=== PATIENT | male | born 1940 | race Caucasian/White ===

== ENCOUNTER 2018-06-17 03:07 | Emergency (ER) | payer OTHER, SELFPAY ==
[2018-06-17] MEDS ORDERED: ONDANSETRON 4 MG/2 ML VIAL ONE (03:54)
[2018-06-17] MEDS ORDERED: MORPHINE 4 MG/ML SYR ONE (03:54)
[2018-06-17] MEDS ORDERED: NA CHLORIDE 0.9% 1,000 ML ONE (03:54)
[2018-06-17 03:58] LABS: Absolute Monocytes 0.9 K/uL (0.1-1.3); Absolute Neutrophil 12.6 K/uL (1.8-8.0); Basophils % 0.5 % (0-1.3); Eosinophils % 0.6 % (0-4.4); Lymphocytes % 6.8 % (15.3-44.8); MPV 8.1 fL (7.6-11.3); RBC Red Blood Cell Count 4.36 M/uL (4.33-5.43)
[2018-06-17 04:14] LABS: Albumin 2.2 g/dL (3.4-5.0); Bilirubin Direct 0.3 mg/dL (0-0.2); Bilirubin Total 0.5 mg/dL (0.2-1.0); Potassium 4.1 mmol/L (3.5-5.1); Protein, Total 7.3 g/dL (6.4-8.2)
[2018-06-17 04:53] LABS: Blood Morphology Comment NOT SEEN (NOT SEEN); Platelet Estimate ADEQ
--- NOTE | 2018-06-17 05:31 | ER ---
Nurse's Notes [facility] Name: Rio Strauss Age: 77 yrs Sex: Male : 1940 Arrival Date: 06/17/2018 Time: 03:10 Bed 17 Private MD: Diagnosis: Retention of urine, unspecified Presentation: 06/17 03:12 Presenting complaint: Patient states: I have a pain in my right side that radiate to my jb4 left. I think it is my kidneys. 03:12 Transition of care: patient was not received from another setting of care. Onset of jb4 symptoms was June 16, 2018. Risk Assessment: Do you want to hurt yourself or someone else? Patient reports no desire to harm self or others. Initial Sepsis Screen: Does the patient meet any 2 criteria? No. Patient's initial sepsis screen is negative. Initial Sepsis Screen: Does the patient have a suspected source of infection? No. Patient's initial sepsis screen is negative. Care prior to arrival: None. 03:12 Method Of Arrival: Ambulatory jb4 03:12 Acuity: SHI 3 jb4 Triage Assessment: 03:12 General: Appears in no apparent distress. uncomfortable, Behavior is calm, cooperative, jb4 appropriate for age. Pain: Complains of pain in right low back Pain radiates to left low back Pain currently is 7 out of 10 on a pain scale. Quality of pain is described as aching, stabbing, Pain began 1 day ago. EENT: No signs and/or symptoms were reported regarding the EENT system. Neuro: Level of Consciousness is awake, alert, obeys commands, Oriented to person, place, time, situation. Cardiovascular: Patient's skin is warm and dry. Respiratory: Reports cough that is non-productive, Pt diagnosed with the flu prior to today's visit. Airway is patent Respiratory effort is even, unlabored, Respiratory pattern is regular, symmetrical. GI: No signs and/or symptoms were reported involving the gastrointestinal system. : No signs and/or symptoms were reported regarding the genitourinary system. Derm: Skin is intact, Skin is pink, warm \T\ dry. Musculoskeletal: Circulation, motion, and sensation intact. Historical: - Allergies: 03:12 No Known Allergies; jb4 - Home Meds: 03:12 Augmentin Oral [Active]; atorvastatin oral oral [Active]; Lisinopril Oral [Active]; jb4 - PMHx: 03:12 Hyperlipidemia; Hypertension; jb4 - PSHx: 03:12 parathyroidectomy; jb4 - Immunization history:: Adult Immunizations not up to date. - Social history:: Smoking status: Patient/guardian denies using tobacco, Patient/guardian denies using alcohol, Patient/guardian denies using street drugs, The patient lives with family. - Ebola Screening: : No symptoms or risks identified at this time. - Family history:: not pertinent. Screenin:12 Abuse screen: Denies threats or abuse. Nutritional screening: No deficits noted. jb4 Tuberculosis screening: No symptoms or risk factors identified. Fall Risk None identified. Assessment: 03:12 General: see triage assessment.. jb4 04:16 Reassessment: Patient appears in no apparent distress at this time. Patient and/or jb4 family updated on plan of care and expected duration. Pain level reassessed. Patient is alert, oriented x 3, equal unlabored respirations, skin warm/dry/pink. Pt back from Ct. 04:22 Cardiovascular: Patient's skin is warm and dry. Respiratory: Breath sounds with rhonchi jb4 bilaterally. 05:00 Reassessment: Patient appears in no apparent distress at this time. Patient and/or jb4 family updated on plan of care and expected duration. Pain level reassessed. Patient is alert, oriented x 3, equal unlabored respirations, skin warm/dry/pink. 06:09 Reassessment: Patient appears in no apparent distress at this time. Patient and/or jb4 family updated on plan of care and expected duration. Pain level reassessed. Patient is alert, oriented x 3, equal unlabored respirations, skin warm/dry/pink. Discussed D/c, F/u with pt, denies questions or concerns. Verified understanding of education through teach back. Vital Signs: 03:12 BP 150 / 71; Pulse 65; Resp 18; Temp 97.6; Pulse Ox 98% on R/A; Weight 106.59 kg (R); jb4 Height 6 ft. 0 in. (182.88 cm) (R); Pain 7/10; 04:22 BP 124 / 72; Pulse 65; Resp 18; Pulse Ox 93% on R/A; jb4 05:00 BP 134 / 67; Pulse 73; Resp 18; Pulse Ox 98% on R/A; jb4 05:45 BP 149 / 68; Pulse 75; Resp 18; Pulse Ox 96% on R/A; jb4 03:12 Body Mass Index 31.87 (106.59 kg, 182.88 cm) jb4 ED Course: 03:10 Patient arrived in ED. ag3 03:11 Arely Shepherd MD is Attending Physician. ma2 03:12 Arm band placed on left wrist. jb4 03:12 Patient has correct armband on for positive identification. Bed in low position. Call 4 light in reach. Side rails up X 1. Pulse ox on. NIBP on. 03:22 Magdaleno Aguilera, RN is Primary Nurse. jb4 03:24 Triage completed. jb4 03:44 Inserted saline lock: 22 gauge in right antecubital area, using aseptic technique. gm Blood collected. 04:19 CT completed. Patient tolerated procedure well. Patient moved to CT via wheelchair. Patient moved back from CT. 04:20 Stone Protocol In Process Unspecified. EDPA 06:11 No provider procedures requiring assistance completed. jb4 06:11 Pt left before IV could be Dc'd. jb4 Administered Medications: 03:50 Drug: NS 0.9% 1000 ml Route: IV; Rate: 1 bolus; Site: right antecubital; jb4 05:30 Follow up: Response: No adverse reaction; IV Status: Completed infusion jb4 03:50 Drug: Zofran 4 mg {Note: Given IVP per physicians orders..} Route: IM; Site: Other; jb4 04:05 Follow up: Response: No adverse reaction jb4 03:52 Drug: morphine 4 mg Route: IVP; Site: right antecubital; jb4 04:05 Follow up: Response: No adverse reaction; Pain is decreased jb Outcome: 05:31 Discharge ordered by . ma2 06:11 Discharged to home ambulatory. jb4 06:11 Condition: stable 06:11 Discharge instructions given to patient, Instructed on discharge instructions, follow up and referral plans. medication usage, Demonstrated understanding of instructions, follow-up care, medications, Prescriptions given X 2. 06:18 Patient left the ED. jb4 Signatures: Dispatcher [employer] [facility] Antoni Mckinney Magdaleno Aguilera, RN RN jb Arely Shepherd MD MD ma2 Quin Callaway ag3 Nery Sen gm Corrections: (The following items were deleted from the chart) 04:22 04:16 Reassessment: Patient appears in no apparent distress at this time. Patient jb4 and/or family updated on plan of care and expected duration. Pain level reassessed. Patient is alert, oriented x 3, equal unlabored respirations, skin warm/dry/pink. Pt back from Ct jb4
--- NOTE | 2018-06-17 05:32 | EDPHYS ---
Physician Documentation [facility] Name: Rio Strauss Age: 77 yrs Sex: Male : 1940 Arrival Date: 06/17/2018 Time: 03:10 Bed 17 Private MD: ED Physician Arely Shepherd HPI: 06/17 03:32 This 77 yrs old Male presents to ER via Ambulatory with complaints of Flank ma2 Pain. 03:32 The patient complains of pain in the right mid back. The pain does not radiate. Onset: ma2 The symptoms/episode began/occurred gradually, 2 day(s) ago. Associated signs and symptoms: Pertinent negatives: dizziness, urinary frequency, headache, nausea. Severity of pain: At its worst the pain was moderate in the emergency department the pain. The patient has experienced a previous episode. Historical: - Allergies: 03:12 No Known Allergies; jb4 - Home Meds: 03:12 Augmentin Oral [Active]; atorvastatin oral oral [Active]; Lisinopril Oral [Active]; jb4 - PMHx: 03:12 Hyperlipidemia; Hypertension; jb4 - PSHx: 03:12 parathyroidectomy; jb4 - Immunization history:: Adult Immunizations not up to date. - Social history:: Smoking status: Patient/guardian denies using tobacco, Patient/guardian denies using alcohol, Patient/guardian denies using street drugs, The patient lives with family. - Ebola Screening: : No symptoms or risks identified at this time. - Family history:: not pertinent. ROS: 03:32 Constitutional: Negative for fever, chills, and weight loss, Eyes: Negative for injury, ma2 pain, redness, and discharge. 03:32 Back: Positive for pain at rest, Negative for injury or acute deformity, radiated pain. 03:32 All other systems are negative. Exam: 03:32 Constitutional: This is a well developed, well nourished patient who is awake, alert, ma2 and in no acute distress. Chest/axilla: Normal chest wall appearance and motion. Nontender with no deformity. No lesions are appreciated. Cardiovascular: Regular rate and rhythm with a normal S1 and S2. No gallops, murmurs, or rubs. Normal PMI, no JVD. No pulse deficits. Respiratory: Lungs have equal breath sounds bilaterally, clear to auscultation and percussion. No rales, rhonchi or wheezes noted. No increased work of breathing, no retractions or nasal flaring. Abdomen/GI: Soft, non-tender, with normal bowel sounds. No distension or tympany. No guarding or rebound. No evidence of tenderness throughout. MS/ Extremity: Pulses equal, no cyanosis. Neurovascular intact. Full, normal range of motion. Neuro: Awake and alert, GCS 15, oriented to person, place, time, and situation. Cranial nerves II-XII grossly intact. Motor strength 5/5 in all extremities. Sensory grossly intact. Cerebellar exam normal. Normal gait. Vital Signs: 03:12 BP 150 / 71; Pulse 65; Resp 18; Temp 97.6; Pulse Ox 98% on R/A; Weight 106.59 kg (R); jb4 Height 6 ft. 0 in. (182.88 cm) (R); Pain 7/10; 04:22 BP 124 / 72; Pulse 65; Resp 18; Pulse Ox 93% on R/A; jb4 05:00 BP 134 / 67; Pulse 73; Resp 18; Pulse Ox 98% on R/A; jb4 05:45 BP 149 / 68; Pulse 75; Resp 18; Pulse Ox 96% on R/A; jb4 03:12 Body Mass Index 31.87 (106.59 kg, 182.88 cm) [facility] MDM: 03:12 Patient medically screened. [facility] 03:32 Differential diagnosis: nephrolithiasis, pyelonephritis, UTI, pancreatitis. [facility] 05:29 Data reviewed: vital signs, nurses notes. Counseling: I had a detailed discussion with [facility] the patient and/or guardian regarding: the historical points, exam findings, and any diagnostic results supporting the discharge/admit diagnosis, the presence of at least one elevated blood pressure reading (>120/80) during this emergency department visit, the need for outpatient follow up. Response to treatment: the patient's symptoms have resolved after treatment. 06/17 03:31 Order name: Basic Metabolic Panel; Complete Time: 05:18 [facility] 06/17 03:31 Order name: CBC with Diff; Complete Time: 05:18 [facility] 06/17 03:31 Order name: Creatinine for Radiology; Complete Time: 05:18 [facility] 06/17 03:31 Order name: Hepatic Function; Complete Time: 05:18 [facility] 06/17 03:31 Order name: Lipase; Complete Time: 05:18 [facility] 06/17 04:04 Order name: Manual Differential; Complete Time: 05:18 [facility] 06/17 03:31 Order name: IV Saline Lock; Complete Time: 03:54 [facility]2 06/17 03:31 Order name: Labs collected and sent; Complete Time: 03:54 [facility] 06/17 03:52 Order name: Stone Protocol [facility] 06/17 04:22 Order name: Urine Dipstick--Ancillary (enter results) [facility] 06/17 03:31 Order name: Urine Dipstick-Ancillary (obtain specimen); Complete Time: 04:09 [facility]2 06/17 05:28 Order name: Waters Leg Bag; Complete Time: 05:50 ma2 Administered Medications: 03:50 Drug: NS 0.9% 1000 ml Route: IV; Rate: 1 bolus; Site: right antecubital; [facility] 05:30 Follow up: Response: No adverse reaction; IV Status: Completed infusion [facility] 03:50 Drug: Zofran 4 mg {Note: Given IVP per physicians orders..} Route: IM; Site: Other; 4 04:05 Follow up: Response: No adverse reaction [facility] 03:52 Drug: morphine 4 mg Route: IVP; Site: right antecubital; 4 04:05 Follow up: Response: No adverse reaction; Pain is decreased 4 Disposition: 06/17/18 05:31 Discharged to Home. Impression: Retention of urine, unspecified. - Condition is Stable. - Discharge Instructions: Acute Urinary Retention, Male, Acute Urinary Retention, Male, [id number]. - Prescriptions for Flomax 0.4 mg Oral Capsule, Sust. Release 24 hr - take 1 capsule by ORAL route once daily 1/2 hour following the same meal each day; 30 capsule. Bactrim DS 800- 160 mg Oral Tablet - take 1 tablet by ORAL route every 12 hours for 10 days; 20 tablet. - Medication Reconciliation Form, Thank You Letter, Antibiotic Education, Prescription Opioid Use form. - Follow up: Private Physician; When: Tomorrow; Reason: Continuance of care. - Notes: follow up with urology in 1 week Signatures: Dispatcher [facility] Magdaleno Kaur RN RN jb4 Arely Shepherd MD MD ma2 Corrections: (The following items were deleted from the chart) 03:52 03:32 Abdomen Pelvis Wo Con+CT.RAD.BRZ ordered. EDMS EDMS 06:18 05:31 06/17/2018 05:31 Discharged to Home. Impression: Retention of urine, unspecified. jb4 Condition is Stable. Forms are Medication Reconciliation Form, Thank You Letter, Antibiotic Education, Prescription Opioid Use. Follow up: Private Physician; When: Tomorrow; Reason: Continuance of care. ma2
[2018-06-17 05:50] LABS: Urine Blood TRACE (NEG); Urine Glucose NEGATIVE (NEG); Urine Protein NEGATIVE (NEG); Urine Specific Gravity <1.005 (1.005-1.030)
[2018-06-17 06:25] VITALS: TEMP 97.6
[2018-06-17 06:29] VITALS: BP 149/68; O2SAT 96
--- NOTE | 2018-06-17 08:16 | RAD REPORT ---
EXAM DESCRIPTION: CT - Stone Protocol - 06/17/2018 6:54 am CLINICAL HISTORY: Flank pain. FLANK PAIN COMPARISON: CHEST PA AND LAT 2 VIEW dated 06/11/2012 TECHNIQUE: Axial images were obtained without oral or IV contrast. Lack of contrast limits solid org an and vascular assessment. The [id number] spans the entirety of the system partially obscuring uppermost abdomen and lung bases. Coronal reformatted images were obtained and reviewed. All CT scans are performed using dose optimization technique as appropriate and may include automated exposure control or mA/KV adjustment according to patient size. FINDINGS: Large area of airspace consolidation is present in the right lower lobe. Moderate airspace consolidation is present in the left lower lobe. Trace right pleural fluid. Imaged portions of the liver and spleen show no suspicious findings on non-contrast imaging. The panc reas and adrenal glands are normal. No pathologic lymphadenopathy in the abdomen or pelvis. The urinary bladder appears distended with areas of wall thickening and trabeculation. Bilateral hydr onephrosis, mild, is noted and relatively symmetric. No urinary tract stone seen. No bowel obstruction, free air, free fluid or abscess. Normal appendix noted.Aortic atherosclerosis. No significant bony abnormality. IMPRESSION: Large dense consolidations are present in both lung bases, greater on the right. Pneumon ia and airspace neoplasia are possible etiologies for these findings. Consider bronchoscopy follow-up assessment. No urinary tract stone is seen. Distension and trabeculation of the urinary bladder with mild bilater al hydronephrosis probably indicates chronic bladder outlet obstruction.
== END 2018-06-17 06:18 | disposition home or self-care (01) ==
LOC: ER 03:07
DX: N13.30 Unspecified hydronephrosis (principal); R33.9 Retention of urine, unspecified; E78.5 Hyperlipidemia, unspecified; I10 Essential (primary) hypertension; Z79.899 Other long term (current) drug therapy
CPT/HCPCS: 36415; 74176; 76377; 80048; 80076; 81003; 83690; 85025; 96361; 96372; 96374; 99284; J2405; J7030

== ENCOUNTER 2018-06-17 15:20 | Inpatient (IN) | payer OTHER, SELFPAY ==
[2018-06-17 17:02] VITALS: BMI 31.8
[2018-06-17] MEDS ORDERED: NA CHLORIDE 0.9% 500 ML ONE (17:41)
[2018-06-17] MEDS: ENOXAPARIN 30 MG/0.3 ML SQ SCH (18:00)
[2018-06-17] MEDS: LEVOFLOXACIN 750MG/D5W 150 ML IV SCH (18:06)
[2018-06-17 18:58] LABS: Urine Appearance CLOUDY; Urine Bilirubin NEGATIVE (NEG); Urine Blood 3+ (NEG); Urine Color RED; Urine Glucose NEGATIVE (NEG); Urine Protein 3+ (NEG); Urine Specific Gravity 1.015 (1.005-1.030)
[2018-06-17 19:00] LABS: Urine Microscopic Reflex ORDER UMIC
[2018-06-17 19:06] LABS: Urine Bacteria <20 /HPF (NONE SEEN); Urine Culture Reflex Order REFLEXED; Urine Mucus 1+ /HPF (NONE SEEN); Urine RBC >50 /HPF (NONE SEEN)
[2018-06-17] MEDS: ALBUTEROL 2.5 MG/3 ML NEB SOL NEB SCH (20:00)
[2018-06-18] MEDS: ALBUTEROL 2.5 MG/3 ML NEB SOL NEB SCH ×4 (07:32→20:35)
[2018-06-18] MEDS: LISINOPRIL 20 MG TAB PO SCH (09:00)
[2018-06-18] MEDS: ENOXAPARIN 30 MG/0.3 ML SQ SCH (09:00)
[2018-06-18] MEDS: TAMSULOSIN 0.4 MG SR CAP PO SCH (09:52)
[2018-06-18] MEDS: LEVOFLOXACIN 750MG/D5W 150 ML IV SCH (18:30)
[2018-06-18] MEDS: ATORVASTATIN 20 MG TAB PO SCH (20:49)
--- NOTE | 2018-06-19 00:13 | HP ---
Date of Admission: 06/17/2018 Chief Complaint: Bilateral pneumonia. History Of Present Illness: A 77-year-old male was seen in the emergency room on 06/17/2018, for uri nary retention. A CAT scan was done, which showed evidence of bilateral pneumonia. The patient, how ever, was discharged. The patient later was brought to the office when he was reexamined. He had a clinical evidence of pneumonia with elevated white count. The patient is admitted. Past Medical History: Positive for hypertension, hyperlipidemia. Surgical History: Positive for parathyroidectomy. Home Medicines: Augmentin, Lipitor, and lisinopril. Allergies: NONE. Review of Systems: No chest pain. Physical Examination: General: Revealed a 77-year-old male with mild audible wheezing. HEENT: Otherwise negative. Neck: Supple. JVD negative. Chest: Bilateral crackles in both lungs. Heart: Regular. Abdomen: Soft. Extremities: No edema. Genitourinary: Waters catheter in place. Laboratory Data: White count 14,000 in the emergency room. CAT scan, bilateral pneumonia. Assessment: 1.Bilateral pneumonia, not responding to oral antibiotics. 2.Hypertension. 3.Hyperlipidemia. 4.Urinary retention with Waters catheter status. Plan: IV Levaquin, breathing treatments, restart home medications, and continue Waters catheter. ILAN/SEJAL Voice ID: [id number]
[2018-06-19] MEDS: ALBUTEROL 2.5 MG/3 ML NEB SOL NEB SCH ×4 (07:42→20:00)
[2018-06-19] MEDS: TAMSULOSIN 0.4 MG SR CAP PO SCH (08:38)
[2018-06-19] MEDS: LISINOPRIL 20 MG TAB PO SCH (08:38)
[2018-06-19] MEDS: ENOXAPARIN 30 MG/0.3 ML SQ SCH (08:39)
--- NOTE | 2018-06-19 15:31 | RAD REPORT ---
EXAM DESCRIPTION: RAD - Chest Pa And Lat (2 Views) - 06/19/2018 2:24 pm CLINICAL HISTORY: Pneumonia COMPARISON: June 2012 chest film, CT abdomen and pelvis March 17 TECHNIQUE: PA and lateral views of the chest were obtained. FINDINGS: The lungs are fibrotic as a baseline with flattened diaphragm and increased retrosternal s pace. Moderately large area of consolidation is present in the posterior right lung base and to a le sser degree in the left lung base. Compared to the CT study there does appear to be some improvement over this 2 day interval. No progression of disease. No failure or volume overload findings. No new mid or upper lung field finding. Heart size is normal and central vasculature is within normal limits. No pleural effusion or pneumothorax seen. No acute bony finding noted. No aortic abnormality. IMPRESSION: Significant bilateral lung base pneumonia showing improvement from the CT study of . No new or progressive finding.
[2018-06-19] MEDS: LEVOFLOXACIN 750MG/D5W 150 ML IV SCH (17:06)
[2018-06-19] MEDS: ATORVASTATIN 20 MG TAB PO SCH (21:30)
--- NOTE | 2018-06-19 23:14 | PN ---
The patient's chest x-ray shows improvement. He is afebrile. Clinically, he is less short of breath and his wheezing is better. In view of positive response, he will be continued on the Levaquin. ILAN/SEJAL Voice ID: [id number] Report ID: [id number]
[2018-06-20] MEDS: ALBUTEROL 2.5 MG/3 ML NEB SOL NEB SCH (07:53)
[2018-06-20] MEDS: TAMSULOSIN 0.4 MG SR CAP PO SCH (08:41)
[2018-06-20] MEDS: LISINOPRIL 20 MG TAB PO SCH (08:41)
[2018-06-20] MEDS: ENOXAPARIN 30 MG/0.3 ML SQ SCH (08:41)
[2018-06-20 09:43] VITALS: O2SAT 90
[2018-06-20 14:42] VITALS: BP 118/55; TEMP 98
== END 2018-06-20 13:10 | disposition home or self-care (01) | DRG 195 ==
LOC: 2ND 16:25
PROVIDERS: ADMIT Internal Medicine; ATTEND Internal Medicine
DX: J18.9 Pneumonia, unspecified organism (principal); I10 Essential (primary) hypertension; E78.5 Hyperlipidemia, unspecified; R33.9 Retention of urine, unspecified
CPT/HCPCS: 36415; 71046; 74176; 76377; 80048; 80076; 81003; 81015; 83690; 85025; 87040; 87070; 87086; 87088; 87205; 96361; 96372; 96374; 99284; J1650; J2405; J7030

== ENCOUNTER 2022-06-28 17:34 | Inpatient (IN) | payer OTHER ==
--- OUTSIDE RECORDS SUMMARY | 2022-06-28 17:37 | XMS REPORT | Continuity of Care Document ---
:1940 Author Organization [facility] t Address [address] [place] [address] Care Team Providers Name Role Phone Santana-Fernieo_A_AH Attending Clinician Unavailable Santana-Fernieo_A_AH Admitting Clinician Unavailable Payers Payer Name Policy Type Policy Number Effective Date Expiration Date S kane [facility] - [id number] 2019 [employer] 00:00:00 (MEDICARE REPLACEMENT/ADVANT AGE - HMO) Problems This patient has no known problems. Allergies, Adverse Reactions, Alerts This patient has no known allergies or adverse reactions. Medications This patient has no known medications. Procedures This patient has no known procedures. Encounters Start End Encounter Admission Attending Care Care Encounter Source Date/Time Date/Time Type Type Clinicians Facility Department ID 2019-07-27 2019-07-27 Outpatient [facility] [phone] [facility] 07:29:00 07:29:00 _A_AH [id number] Family Practic e Results This patient has no known results.
[2022-06-28 18:08] LABS: Absolute Lymphocytes (CBC) 0.9 K/uL (0.7-4.9); Hematocrit 23.9 % (39.6-49.0); Lymphocytes % 6.2 % (15.3-44.8); MPV 8.7 fL (7.6-11.3); RBC Red Blood Cell Count 2.47 M/uL (4.33-5.43)
[2022-06-28 18:19] LABS: Protime INR 1.22
[2022-06-28 18:28] LABS: Potassium 4.4 mmol/L (3.5-5.1)
--- NOTE | 2022-06-28 18:29 | RAD REPORT ---
EXAM DESCRIPTION: RAD - Chest Single View - 06/28/2022 6:20 pm CLINICAL HISTORY: CHEST PAIN COMPARISON: No comparisonsChest Pa And Lat (2 Views) dated 07/01/2018; Chest Pa And Lat (2 Views) lorrie ed 06/19/2018; CHEST PA AND LAT 2 VIEW dated 06/11/2012 FINDINGS: Lines: None. Lungs: Increased prominence of the pulmonary vasculature . Pleural: Small pleural effusions. Cardiac: Mild cardiomegaly. Mediastinum: Within normal limits. Bones: No acute fractures. Other: None IMPRESSION: Small effusions bilaterally with prominence of the pulmonary interstitium that could ref lect either mild edema or atypical pneumonia.
[2022-06-28 18:33] LABS: Troponin High Sensitivity 60.4 pg/mL (<58.9)
--- NOTE | 2022-06-28 18:42 | ER ---
Nurse's Notes [facility] Name: Rio Strauss Age: 81 yrs Sex: Male : 1940 Arrival Date: 06/28/2022 Time: 17:36 Bed 17 Private MD: Diagnosis: Acute kidney failure, unspecified;Acute pulmonary edema;Dyspnea, unspecified;Acidosis Presentation: 06/28 17:43 Chief complaint: Patient states: CP, SOB, cough x1 day. Coronavirus screen: Vaccine jl7 status: Patient reports receiving the 2nd dose of the covid vaccine. cough unrelated to allergies, Client presents with at least one sign or symptom that may indicate coronavirus-19. Ebola Screen: No symptoms or risks identified at this time. Initial Sepsis Screen: Does the patient meet any 2 criteria? No. Patient's initial sepsis screen is negative. Does the patient have a suspected source of infection? No. Patient's initial sepsis screen is negative. Risk Assessment: Do you want to hurt yourself or someone else? Patient reports no desire to harm self or others. Onset of symptoms was June 27, 2022. 17:43 Method Of Arrival: Ambulatory jl7 17:43 Acuity: SHI 2 jl7 Triage Assessment: 17:45 General: Appears in no apparent distress. uncomfortable, Behavior is calm, cooperative, jl7 appropriate for age. Pain: Complains of pain in chest Pain currently is 6 out of 10 on a pain scale. Cardiovascular: Patient's skin is warm and dry. Historical: - Allergies: 17:45 No Known Allergies; jl7 - PMHx: 17:45 Hyperlipidemia; Hypertension; jl7 - PSHx: 17:45 None; jl7 - Immunization history:: Client reports receiving the 2nd dose of the Covid vaccine. - Social history:: Smoking status: Patient denies any tobacco usage or history of. - Family history:: not pertinent. - Hospitalizations: : No recent hospitalization is reported. Screenin:19 [facility] ED Fall Risk Assessment (Adult) History of falling in the last 3 months, mb9 including since admission No falls in past 3 months (0 pts) Confusion or Disorientation No (0 pts) Intoxicated or Sedated No (0 pts) Impaired Gait No (0 pts) Mobility Assist Device Used No (0 pt) Altered Elimination No (0 pt) Score/Fall Risk Level 0 - 2 = Low Risk Oriented to surroundings, Maintained a safe environment. Abuse screen: Denies threats or abuse. Nutritional screening: No deficits noted. Tuberculosis screening: No symptoms or risk factors identified. Assessment: 18:00 General: Appears in no apparent distress. uncomfortable, Behavior is cooperative. Pain: mb9 Complains of pain in chest Pain does not radiate. Pain currently is 5 out of 10 on a pain scale. Quality of pain is described as shooting, stabbing, Pain began 2-3 days ago. Neuro: Izaguirre Agitation-Sedation Scale (RASS): 0 - Alert and Calm Level of Consciousness is awake, alert, obeys commands, Oriented to person, place, time, situation, Appropriate for age. Cardiovascular: Heart tones S1 S2 present Capillary refill < 3 seconds is brisk Patient's skin is warm and dry. Rhythm is regular. Respiratory: Reports shortness of breath Airway is patent Respiratory effort is even, unlabored, Respiratory pattern is regular, symmetrical, Breath sounds are clear bilaterally. GI: Abdomen is round non-distended, Bowel sounds present X 4 quads. Patient currently denies nausea, pain. : No signs and/or symptoms were reported regarding the genitourinary system. EENT: No signs and/or symptoms were reported regarding the EENT system. Derm: Skin is fragile, is thin, Skin is dry, Skin is pale, Skin temperature is cool. Musculoskeletal: Range of motion: intact in all extremities, Swelling present in bilateral lower extremities. 19:15 General: Appears in no apparent distress. uncomfortable, well groomed, well developed, pf1 Behavior is calm, cooperative, appropriate for age, quiet. 19:15 Pain: Complains of pain in chest Pain does not radiate. Pain currently is 5 out of 10 pf1 on a pain scale. Neuro: Level of Consciousness is awake, alert, obeys commands, Oriented to person, place, time, situation, Appropriate for age. Cardiovascular: Capillary refill < 3 seconds is brisk Patient's skin is warm and dry. Chest pain. Respiratory: Reports shortness of breath on exertion Airway is patent Trachea midline Respiratory effort is even, unlabored, Respiratory pattern is regular, symmetrical, Breath sounds are clear bilaterally. GI: Abdomen is round distended, Bowel sounds present X 4 quads. Patient currently denies pain. : No deficits noted. No signs and/or symptoms were reported regarding the genitourinary system. EENT: No deficits noted. No signs and/or symptoms were reported regarding the EENT system. Derm: Skin is intact, is thin, Skin is dry. 19:15 Musculoskeletal: Swelling present in right leg and left leg. pf1 19:25 General: Patient taken to catscan via stretcher. pf1 20:00 Reassessment: Patient appears in no apparent distress at this time. No changes from pf1 previously documented assessment. Patient and/or family updated on plan of care and expected duration. Pain level reassessed. Patient is alert, oriented x 3, equal unlabored respirations, skin warm/dry/pink. Patient states symptoms have not improved. 21:00 Reassessment: Patient appears in no apparent distress at this time. No changes from pf1 previously documented assessment. Patient and/or family updated on plan of care and expected duration. Pain level reassessed. Patient is alert, oriented x 3, equal unlabored respirations, skin warm/dry/pink. Patient states symptoms have improved. 21:50 GI: Abdomen is round non-distended, Patient stated has some relief with rowe catheter pf1 insertion. Vital Signs: 17:43 BP 163 / 85; Pulse 88; Resp 22 S; Temp 98.9(TE); Pulse Ox 100% on R/A; Weight 90.72 kg jl7 (R); Height 6 ft. 0 in. (182.88 cm) (R); Pain 6/10; 18:24 BP 153 / 78; Pulse 79; Resp 18; Pulse Ox 97% ; mb9 19:30 BP 164 / 78; Pulse 92; Resp 18; Temp 98.2; Pulse Ox 95% on R/A; Pain 7/10; pf1 20:30 BP 158 / 81; Pulse 95; Resp 20; Pulse Ox 95% on R/A; Pain 7/10; pf1 21:30 BP 147 / 87; Pulse 97; Resp 20; Temp 98.4(O); Pulse Ox 98% on R/A; Pain 7/10; pf1 17:43 Body Mass Index 27.12 (90.72 kg, 182.88 cm) 7 ED Course: 17:36 Patient arrived in ED. [facility] 17:37 Lee Mancia MD is Attending Physician. rn 17:45 Triage completed. jl7 17:45 Arm band placed on right wrist. jl7 17:45 Placed in gown. Bed in low position. Call light in reach. Side rails up X 1. Client mb9 placed on continuous cardiac and pulse oximetry monitoring. NIBP monitoring applied. 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 17:45 Door closed. Noise minimized. Warm blanket given. mb9 17:55 EKG done, by ED staff, reviewed by Lee Mancia MD. mb9 18:00 Missed attempt(s): 20 gauge in left antecubital area. mb9 18:15 Estephanie Soria, RN is Primary Nurse. mb9 18:16 Missed attempt(s): 20 gauge in right forearm. 22 gauge forearm. mm9 18:18 Basic Metabolic Panel Sent. mb9 18:18 NT PRO-BNP Sent. mb9 18:18 PT-INR Sent. mb9 18:18 Troponin HS Sent. mb9 18:19 No provider procedures requiring assistance completed. mb9 18:22 XRAY Chest (1 view) In Process Unspecified. EDMS 18:30 Missed attempt(s): 22 gauge in right wrist. vg1 18:39 Missed attempt(s): 22 gauge in right forearm. vg1 18:41 SARS RAPID Sent. mb9 18:50 Inserted saline lock: 20 gauge in left upper arm, using aseptic technique. ,using vg1 aseptic technique. COMPLETED BY DR MANCIA, US GUIDED. 19:43 CT Chest Wo Con In Process Unspecified. EDMS 19:52 Surya Lugo MD is Hospitalizing Provider. cg 19:[address] In Process Unspecified. EDMS 20:05 Inserted saline lock: 22 gauge in right antecubital area, using aseptic technique. pf1 Blood collected. 20:18 Patient maintains SpO2 saturation greater than 95% on room air. pf1 20:35 Rowe cath inserted, using sterile technique, 16 Fr., by nd, balloon inflated, to pf1 gravity drainage, clamped. returned light red with yellow urine. 21:53 Patient admitted, IV remains in place. pf1 Administered Medications: 19:40 CANCELLED (Other Intervention Used): morphine 1 mg IVP once over 2 mins la1 19:50 Drug: morphine 2 mg Route: IVP; Infused Over: 4 mins; Site: left antecubital; pf1 20:50 Follow up: Response: No adverse reaction; Pain is unchanged, physician notified; RASS: pf1 Alert and Calm (0) 20:10 Drug: NS 0.45 % 1000 ml Route: IV; Rate: 50 ml/hr; Site: right antecubital; pf1 21:00 Follow up: Response: No adverse reaction pf1 21:52 Follow up: IV Status: Infusion continued upon admission; IV Intake: 100ml pf1 Medication: 20:18 VIS not applicable for this client. pf1 Intake: 21:52 IV: 100ml; Total: 100ml. pf1 22:00 with bright red blood pf1 Output: 20:35 Urine: 800ml (Rowe); Total: 800ml. pf1 21:00 Urine: 400ml (Rowe); Total: 1200ml. pf1 22:00 Urine: 300ml (Rowe); Total: 1500ml. pf1 22:00 with bright red blood pf1 Outcome: 18:41 Decision to Hospitalize by Provider. rn 21:59 Admitted to Med/surg accompanied by tech, via stretcher, room 215, with chart, Report pf1 called to JENISE Callejas 22:00 Condition: stable pf1 22:00 Instructed on the need for admit, Demonstrated understanding of instructions. 22:06 Patient left the ED. pf1 Signatures: Dispatcher [employer] EDMS Lee Mancia MD MD rn Garcia, Cindy RN Domi Miller RN RN jl7 Lianne Gannon RN RN paz1 Augusta Georges mm9 Estella, Estephanie Batres, RN RN mb9 Toya bates RN RN pf1 Rajeev Sehlton [facility] Corrections: (The following items were deleted from the chart) 21:50 19:15 GI: Abdomen is round non-distended, Bowel sounds present X 4 quads. Patient pf1 currently denies pain, pf1 21:51 21:49 GI: Abdomen is pf1 pf1 21:59 19:15 Derm: Skin is intact, is thin, Skin is dry, pf1 pf1 22:06 21:49 Urine 300, (Rowe), Output Total 300. pf1 pf1
--- NOTE | 2022-06-28 18:42 | EDPHYS ---
Physician Documentation [facility] Name: Rio Strauss Age: 81 yrs Sex: Male : 1940 Arrival Date: 06/28/2022 Time: 17:36 Bed 17 Private MD: ED Physician Lee Mancia HPI: 06/28 17:47 This 81 yrs old Male presents to ER via Ambulatory with complaints of Chest Pain. rn 17:47 The patient or guardian reports chest pain that is located primarily in the substernal rn area. Onset: yesterday. The pain does not radiate. Associated signs and symptoms: Pertinent positives: lower extremity swelling, shortness of breath, Pertinent negatives: abdominal pain, cough, diaphoresis. The chest pain is described as aching, sharp. Duration: The patient or guardian reports multiple episodes, that are intermittent. Modifying factors: The symptoms are alleviated by nothing. the symptoms are aggravated by activity, deep breath. Severity of pain: At its worst the pain was moderate in the emergency department the pain is unchanged. The patient has not experienced similar symptoms in the past. The patient has not recently seen a physician. Historical: - Allergies: 17:45 No Known Allergies; jl7 - PMHx: 17:45 Hyperlipidemia; Hypertension; jl7 - PSHx: 17:45 None; jl7 - Immunization history:: Client reports receiving the 2nd dose of the Covid vaccine. - Social history:: Smoking status: Patient denies any tobacco usage or history of. - Family history:: not pertinent. - Hospitalizations: : No recent hospitalization is reported. ROS: 17:47 Constitutional: Negative for fever, chills, and weight loss, Eyes: Negative for injury, rn pain, redness, and discharge, Neck: Negative for injury, pain, and swelling, Cardiovascular: + for chest pain Respiratory: Negative for cough, wheezing Abdomen/GI: Negative for abdominal pain, nausea, vomiting, diarrhea, and constipation, Back: Negative for injury and pain, MS/Extremity: Negative for injury and deformity, Skin: Negative for injury, rash, and discoloration, Neuro: Negative for headache, weakness, numbness, tingling, and seizure. Exam: 17:47 Constitutional: This is a well developed, well nourished patient who is awake, alert, rn and in no acute distress. Head/Face: Normocephalic, atraumatic. ENT: No stridor Cardiovascular: Regular rate and rhythm. No pulse deficits. Respiratory: + mild tachypnea, no retractions Abdomen/GI: Soft, non-tender, with normal bowel sounds. No distension or tympany. No guarding or rebound. No evidence of tenderness throughout. Skin: Warm, dry MS/ Extremity: Pulses equal, no cyanosis. Neurovascular intact. Full, normal range of motion. Equal circumference with 2+ pitting edema bilaterally Neuro: Awake and alert, GCS 15 18:14 ECG was reviewed by the Attending Physician. rn Vital Signs: 17:43 BP 163 / 85; Pulse 88; Resp 22 S; Temp 98.9(TE); Pulse Ox 100% on R/A; Weight 90.72 kg jl7 (R); Height 6 ft. 0 in. (182.88 cm) (R); Pain 6/10; 18:24 BP 153 / 78; Pulse 79; Resp 18; Pulse Ox 97% ; mb9 19:30 BP 164 / 78; Pulse 92; Resp 18; Temp 98.2; Pulse Ox 95% on R/A; Pain 7/10; pf1 20:30 BP 158 / 81; Pulse 95; Resp 20; Pulse Ox 95% on R/A; Pain 7/10; pf1 21:30 BP 147 / 87; Pulse 97; Resp 20; Temp 98.4(O); Pulse Ox 98% on R/A; Pain 7/10; pf1 17:43 Body Mass Index 27.12 (90.72 kg, 182.88 cm) [facility] Procedures: 18:52 Peripheral line: by aseptic technique a peripheral line was placed in the left rn antecubital vein, 20 g, Placed by Dr. Mancia using ultrasound guidance, single stick, good blood flow and flush without resistance, secured with tegaderm.. MDM: 17:37 Patient medically screened. rn 18:38 Differential diagnosis: acute myocardial infarction, coronary artery disease rn costochondritis, pleurisy, pneumonia, pneumothorax, pulmonary embolus, stable angina, volume overload, pleural effusions, kidney failure. Data reviewed: vital signs, nurses notes, lab test result(s), EKG, radiologic studies, plain films, and as a result, I will admit patient. Management of patient was discussed with the following: Hospitalist: Management of case discussed with hospitalist service. . Independent interpretation of the following test(s) in the Emergency Department EKG: See my EKG interpretation above X-Ray: My interpretation is CXR shows bilateral pleural effusions with pulmonary edema. Test considered but Not performed: Other Details CT PE considered but found to be in acute kidney failure so canceled. . Counseling: I had a detailed discussion with the patient and/or guardian regarding: the historical points, exam findings, and any diagnostic results supporting the discharge/admit diagnosis, lab results, radiology results, the need for further work-up and treatment in the hospital. Response to treatment: the patient's symptoms have mildly improved after treatment, and as a result, I will admit patient. 06/28 17:45 Order name: Basic Metabolic Panel; Complete Time: 18:34 06/28 17:45 Order name: CBC with Diff; Complete Time: 18:25 06/28 17:45 Order name: NT PRO-BNP; Complete Time: 18:34 06/28 17:45 Order name: PT-INR; Complete Time: 18:25 rn 06/28 17:45 Order name: Troponin HS; Complete Time: 18:34 rn 06/28 17:45 Order name: XRAY Chest (1 view); Complete Time: 18:34 rn 06/28 18:37 Order name: SARS RAPID; Complete Time: 19:57 aa5 06/28 18:40 Order name: CPK; Complete Time: 19:57 7 06/28 18:40 Order name: Uric Acid; Complete Time: 19:57 7 06/28 18:40 Order name: LFT's; Complete Time: 19:57 7 06/28 18:42 Order name: ABG: OK for VBG; Complete Time: 19:57 7 06/28 19:18 Order name: Type And Screen la1 06/28 17:45 Order name: EKG; Complete Time: 17:45 rn 06/28 17:45 Order name: Cardiac monitoring; Complete Time: 18:18 rn 06/28 17:45 Order name: EKG - Nurse/Tech; Complete Time: 18:18 rn 06/28 17:45 Order name: IV Saline Lock; Complete Time: 18:18 rn 06/28 17:45 Order name: Labs collected and sent; Complete Time: 18:18 rn 06/28 17:45 Order name: O2 Per Protocol; Complete Time: 18:18 rn 06/28 17:45 Order name: O2 Sat Monitoring; Complete Time: 18:18 rn 06/28 18:42 Order name: Bladder Scanner; Complete Time: 20:17 7 06/28 18:42 Order name: Misc. Order: Pre and post void residual ; Complete Time: 20:17 jl7 06/28 19:16 Order name: Waters; Complete Time: 21:52 la1 06/28 19:16 Order name: Stone Protocol CT; Complete Time: 20:30 la1 06/28 19:37 Order name: CT Chest Wo Con; Complete Time: 20:26 wm EC:14 Rate is 77 beats/min. Rhythm is regular. QRS [place] is Normal. TN interval is normal. QRS rn interval is prolonged at 134 msec. QT interval is normal. No Q waves. T waves are Normal. No ST changes noted. Clinical impression: NSR w/ Non-specific ST/T Changes and LBBB. Interpreted by me. Reviewed by me. Administered Medications: 19:40 CANCELLED (Other Intervention Used): morphine 1 mg IVP once over 2 mins la1 19:50 Drug: morphine 2 mg Route: IVP; Infused Over: 4 mins; Site: left antecubital; pf1 20:50 Follow up: Response: No adverse reaction; Pain is unchanged, physician notified; RASS: pf1 Alert and Calm (0) 20:10 Drug: NS 0.45 % 1000 ml Route: IV; Rate: 50 ml/hr; Site: right antecubital; pf1 21:00 Follow up: Response: No adverse reaction pf1 21:52 Follow up: IV Status: Infusion continued upon admission; IV Intake: 100ml pf1 Disposition Summary: 06/28/22 18:41 Hospitalization Ordered Hospitalization Status: Inpatient Admission rn [facility] rn Condition: Stable rn Problem: new rn Symptoms: are unchanged rn Bed/Room Type: Standard rn Provider: Surya Lugo(06/28/22 19:52) cg Room Assignment: [facility](06/28/22 19:52) cg Diagnosis - Acute kidney failure, unspecified rn - Acute pulmonary edema rn - Dyspnea, unspecified rn - Acidosis rn Forms: - Medication Reconciliation Form rn - SBAR form rn Signatures: Dispatcher [employer] EDMS Lee Mancia MD MD rn Rajeev Shelton, PRIVATE ADVISOR-C PRIVATE ADVISOR-Cla1 Britt Gannon RN RN cg Domi Cortés, RN RN jl7 Toya bates RN RN pf1 Corrections: (The following items were deleted from the chart) 17:52 17:47 Constitutional: This is a well developed, well nourished patient who is awake, rn alert, and in no acute distress. Head/Face: Normocephalic, atraumatic. Cardiovascular: Regular rate and rhythm. No pulse deficits. Respiratory: + mild tachypnea, no retractions Abdomen/GI: Soft, non-tender, with normal bowel sounds. No distension or tympany. No guarding or rebound. No evidence of tenderness throughout. rn 18:05 17:45 D-DIMER+COAG.LAB.BRZ ordered. EDMS EDMS 18:42 17:51 Chest For PE Angio+CT.RAD.BRZ ordered. EDMS EDMS 19:40 19:40 morphine 1 mg IVP once over 2 mins ordered. la1 la1 19:52 18:41 Surya Lugo rn cg 19:52 18:41 rn cg
[2022-06-28 18:56] LABS: Arterial Blood Carboxyhemoglob 0.8 % (0-1.5); Blood O2 Saturation 93.6 % (92-98.5)
[2022-06-28 19:04] LABS: Albumin 3.1 g/dL (3.4-5.0); Bilirubin Direct 0.1 mg/dL (0-0.2); Bilirubin Total 0.4 mg/dL (0.2-1.0); Protein, Total 7.9 g/dL (6.4-8.2); Uric Acid 7.1 mg/dL (3.5-7.2)
[2022-06-28 19:05] LABS: SARS-CoV-2 Antigen Rapid Res Negative (Negative)
[2022-06-28] MEDS ORDERED: MORPHINE 2 MG/ML SYR ONE (19:56)
[2022-06-28] MEDS ORDERED: NACHLORIDE 0.45% 1,000 ML IV ONE (19:57)
--- NOTE | 2022-06-28 20:13 | P.HP ---
Certification for Inpatient Patient admitted to: Inpatient With expected LOS: >2 Midnights Patient will require the following post-hospital care: None Practitioner: I am a practitioner with admitting privileges, knowledge of patient current condition, hospital course, and medical plan of care. Services: Services provided to patient in accordance with Admission requirements found in Title 42 Section 412.3 of the Code of Federal Regulations <Rajeev Shelton - Last Filed: 06/28/22 20:07> Patient History Date of Service: 06/28/22 Reason for admission: ARF History of Present Illness: 81-year-old male with history of hypertension, hyperlipidemia presents to the emergency department with complaint of chest pain, shortness of breath. He reports that his symptoms have been going on over the course of the last 1 week, worse yesterday. Patient reports he has not seen his PCP lately has been out of his medications for the last 1 week. His labs in the ER demonstrated acute renal failure with a creatinine of 14.4 GFR 3 BUN 117 bicarb of 11 potassium 4.4 his high-sensitivity troponin initially is 60.4 BNP is 7423 ABG was performed which revealed a pH of 7.18 PCO2 of 24.2 HCO3 of 8.7 CBC was remarkable for normocytic anemia with a hemoglobin of 7.5 leukocytosis with white blood cell count of 15.3. Patient denies any melena, hematochezia or hematemesis chest x- ray revealed small pleural effusions bilaterally with prominence of the pulmonary interstitium that could reflect either mild edema or atypical pneumonia. CT chest abdomen pelvis noncontrast ordered to further evaluate. Review of previous CT shows suspected chronic bladder outlet obstruction, for this reason bladder scan was performed which revealed patient had 810 mL of urine in his bladder without the urge to void. Waters catheter was placed in the emergency department. Will need to admit for further evaluation and management of acute renal failure. Discussed case with nephrology on-call prior to admission, recommendation for Waters catheter, gentle hydration. - Past Medical/Surgical History Diabetic: No -: HTN -: hyperlipidemia -: thyroidectomy -: testicle removal -: cataract sx Psychosocial/ Personal History: Lives at home, alone - Family History Father -: Cancer Notes: bone ca Mother -: Heart disease - Social History Smoking Status: Never smoker Alcohol use: No CD- Drugs: No Caffeine use: Yes Place of Residence: Home <Rajeev Shelton - Last Filed: 06/28/22 20:07> Date of Service: 06/29/22 <Surya Lugo - Last Filed: 06/29/22 13:15> Allergies No Known Allergies Allergy (Verified 06/17/18 16:59) Home Medications: Atorvastatin Calcium [Lipitor] 20 mg PO DAILY 06/17/18 RX: Smz./Tmp. [Bactrim Ds 800 MG/160 MG*] 1 tab PO Q12H 06/17/18 RX: Tamsulosin [Flomax*] 1 cap PO DAILY 06/17/18 lisinopriL [Prinivil] 20 mg PO DAILY 06/17/18 levoFLOXacin [Levaquin] 500 mg PO DAILY #7 tab 06/20/18 Review of Systems 10-point ROS is otherwise unremarkable Respiratory: Shortness of Breath Cardiovascular: Chest Pain Genitourinary: Frequency <Rajeev Shelton - Last Filed: 06/28/22 20:07> Physical Examination - Physical Exam General: Alert, In no apparent distress, Oriented x3 HEENT: Atraumatic, PERRLA, Mucous membr. moist/pink, EOMI, Sclerae nonicteric Neck: Supple, 2+ carotid pulse no bruit, No LAD, Without JVD or thyroid abnormal ity Respiratory: Crackles/rales, Rhonchi/gurgles Cardiovascular: Regular rate/rhythm, Normal S1 S2, Edema Capillary refill: <2 Seconds Gastrointestinal: Normal bowel sounds, No tenderness Musculoskeletal: No tenderness Integumentary: No rashes Neurological: Normal speech, Normal strength at 5/5 x4 extr, Normal tone, Normal affect - Studies Laboratory Data (last 24 hrs) 06/28/22 17:55: Uric Acid 7.1, Total Bilirubin 0.4, AST 12 L, ALT 17, Alkaline Phosphatase 73 06/28/22 17:55: PT 13.4 H, INR 1.22 06/28/22 17:55: WBC 15.30 H, Hgb 7.5 L, Hct 23.9 L, Plt Count 235 06/28/22 17:55: Sodium 144, Potassium 4.4, BUN 117 H, Creatinine 14.40 H*, Glucose 135 H <Rajeev Shelton - Last Filed: 06/28/22 20:07> - Studies Laboratory Data (last 24 hrs) 06/28/22 17:55: Uric Acid 7.1, Total Bilirubin 0.4, AST 12 L, ALT 17, Alkaline Phosphatase 73 06/28/22 17:55: PT 13.4 H, INR 1.22 06/28/22 17:55: WBC 15.30 H, Hgb 7.5 L, Hct 23.9 L, Plt Count 235 06/28/22 17:55: Sodium 144, Potassium 4.4, BUN 117 H, Creatinine 14.40 H*, Glucose 135 H <Surya Lugo - Last Filed: 06/29/22 13:15> Assessment and Plan - Plan Assessment: Acute renal failure Metabolic acidosis related to acute renal failure Normocytic anemia Chest pain rule out ACS Hypertension Hyperlipidemia Plan: Acute renal failure: Suspect this is related to chronic urinary retention, bladder scan revealed 800 cc of urine in bladder patient without urge to void at this time. Previously CT Reviewed with suspected bladder outlet obstruction at that time. Waters catheter placed in the emergency department. Continue gentle hydration, repeat chemistry this evening and again in the morning. Patient likely to require dialysis, he would be okay with this. Appreciate further from nephrology, renal ultrasound ordered. Metabolic acidosis related to acute renal failure: Continue as above. Normocytic anemia: Patient denies any melena, hematochezia or hematemesis. Suspect anemia of chronic disease/with renal failure. Type and screen obtained now, will also obtain anemia work-up. Transfuse to maintain hemoglobin greater than 7. Chest pain rule out ACS: Initial high-sensitivity troponin 60, will trend troponins, monitor on telemetry. Cardiology to be consulted and echocardiogram ordered. Hypertension: Patient unsure of his home medications has been without them for approximately 1 week now, will avoid SEYMOUR/ARB, continue other home medications as appropriate. Hyperlipidemia: Continue home medications. DVT PPX: Heparin Code status: Full Discharge Plan: Home Plan to discharge in: Greater than 2 days - Advance Directives Does patient have a Living Will: No Does patient have a Durable POA for Healthcare: No - Code Status/Comfort Care Code Status Assessed: Yes (Full code) Critical Care: No Time Spent Managing Pts Care (In Minutes): 70 <Rajeev Shelton - Last Filed: 01/21/23 20:07> Physician Review: Patient Assessed, Agree with Above Assessment and Plan <Surya Lugo - Last Filed: 06/29/22 13:15>
--- NOTE | 2022-06-28 20:17 | RAD REPORT ---
EXAM DESCRIPTION: CT - Thorax Wo Con - 06/28/2022 7:41 pm CLINICAL HISTORY: Chest pain COMPARISON: No comparisons TECHNIQUE: Axial 5 mm thick images of the chest were obtained without IV contrast. All CT scans are performed using dose optimization technique as appropriate and may include automated exposure control or mA/KV adjustment according to patient size. FINDINGS: Posterior bibasilar interstitial stranding is present believed be combination of scarring and atelectasis. Infiltrate within these changes is unlikely but not entirely excluded in the left ba se. Minimal bilateral pleural effusions are present, left greater than right. Mid and upper lung fiel ds are clear. No endobronchial lesion. No pneumothorax or pleural based mass. A few scattered nonspecific mediastinal lymph nodes are present. No gross aortic or pulmonary artery finding suspected. No cardiomegaly or pericardial effusion. No chest wall mass or abnormal axillary lymphadenopathy. IMPRESSION: Bibasilar atelectasis and minimal bilateral pleural effusions. Minimal infiltrate in the left base could be masked within the atelectatic lung.
[2022-06-28] MEDS ORDERED: ONDANSETRON 4 MG/2 ML VIAL IV PRN (20:24)
[2022-06-28] MEDS ORDERED: NACHLORIDE 0.45% 1,000 ML IV SCH (20:24)
--- NOTE | 2022-06-28 20:28 | RAD REPORT ---
EXAM DESCRIPTION: CT - Stone Protocol - 06/28/2022 7:57 pm CLINICAL HISTORY: acute renal failure COMPARISON: Stone Protocol dated 06/17/2018 TECHNIQUE: Axial 3 mm thick images were obtained without oral or IV contrast. The [id number] span s the entirety of the system including uppermost abdomen and lung bases. All CT scans are performed using dose optimization technique as appropriate and may include automated exposure control or mA/KV adjustment according to patient size. FINDINGS: Lung base findings are detailed in the separate CT chest report. No pericardial thickening or effusion. Severe hydronephrosis of the pelvis and calices noted in each kidney much more pronounced than seen o n the 2019 study. There is bilateral cortical thinning present. Moderately severe bilateral hydrouret er is present down to the UVJ level. No obstructing or nonobstructing calculi. Bladder wall is thicke jesenia. A focal or discrete bladder mass is not seen. There is a enlarged lobulated prostate gland with numerous calcifications. Findings are suspicious for a chronic prostatic urethral outflow obstructive process. No mass seen in the renal parenchyma. No significant adrenal finding. No urinary bladder suspicious finding. Isodense masses and pyelonephritis are not excluded on a stone protocol study. Imaged portions of the liver, spleen and pancreas show no suspicious findings on non-contrast imaging . Gallbladder is contracted limiting detail. No biliary tree dilatation. No suspicious bowel findings. No hernia, mass or bulky lymphadenopathy noted. No free air, free fluid or inflammatory stranding. No significant bony abnormality. IMPRESSION: Severe bilateral hydronephrosis of the pelvis and calices with moderately severe bilater al hydroureter down to the bladder level where there is also bladder wall thickening. No obstructing calculi or ureteral mass identifiable. Enlarged lobulated prostate gland with prominent central calcification pattern. Hydronephrosis findings are much more pronounced but not new from 2019 imaging. Prostatic urethral ou tflow obstruction is suspected. Hydronephrosis causes thinning of the renal parenchyma. No renal mass seen. Isodense masses and pyelo nephritis are not excluded on noncontrast imaging.
[2022-06-28] MEDS ORDERED: HEPARIN 5000 UNIT/ML 1 ML VIAL SQ SCH (21:00)
[2022-06-28 22:26] VITALS: BMI 25.3
[2022-06-28] MEDS: MORPHINE 2 MG/ML SYR IV PRN (23:07)
[2022-06-28 23:26] LABS: Potassium 4.5 mmol/L (3.5-5.1)
[2022-06-28 23:27] LABS: Troponin High Sensitivity 67.2 pg/mL (<58.9)
[2022-06-29] MEDS ORDERED: SODIUM BICARB 50 MEQ/50ML VIAL ONE ×2 (02:00→22:20)
[2022-06-29] MEDS ORDERED: D5W 1,000 ML IV ONE (02:01)
[2022-06-29] MEDS: D5W 1,000 ML with NA BICARB 8.4% 50 MEQ IV SCH ×4 (02:05→14:38)
[2022-06-29 04:31] LABS: Absolute Lymphocytes (CBC) 0.3 K/uL (0.7-4.9); Hematocrit 24.1 % (39.6-49.0); Lymphocytes % 1.1 % (15.3-44.8); MCV 96.9 fL (80-100); MPV 8.4 fL (7.6-11.3); RBC Red Blood Cell Count 2.49 M/uL (4.33-5.43)
[2022-06-29] MEDS: MORPHINE 2 MG/ML SYR IV PRN (04:54)
[2022-06-29 05:07] LABS: Magnesium 1.7 mg/dL (1.6-2.4); Potassium 4.6 mmol/L (3.5-5.1); Thyroid Stimulating Hormone 1.48 uIU/mL (0.358-3.740)
[2022-06-29 05:39] LABS: Ferritin 275.1 ng/mL (26-388)
[2022-06-29 05:50] LABS: Troponin High Sensitivity 5085.2 pg/mL (<58.9)
[2022-06-29 05:54] LABS: Phosphorus 8.7 mg/dL (2.5-4.9)
[2022-06-29 06:00] LABS: Specific Gravity 1.016 (1.005-1.030); Urine Bacteria <20 /HPF (<20); Urine Bilirubin NEGATIVE (Negative); Urine Blood 3+ (OVER) (Negative); Urine Clarity Extremely Turbid (Clear); Urine Color Brown (Yellow); Urine Glucose 2+ (Negative); Urine Mucus 1+ /HPF (None Seen); Urine Protein 3+ (Negative); Urine RBC >50 /HPF (None Seen); Urine Urobilinogen Normal (Normal); Urine WBC Clump Few /HPF (None Seen)
[2022-06-29] MEDS ORDERED: CEFEPIME 1 GM in NA CHLORIDE 0.9% 100 ML IV SCH (06:00)
[2022-06-29] MEDS ORDERED: VANCOMYCIN 1.5 GM in NA CHLORIDE 0.9% 500 ML IVPB ONE (06:00)
[2022-06-29] MEDS ORDERED: HEPARIN 5000 UNIT/ML 1 ML VIAL IV ONE (06:04)
[2022-06-29] MEDS ORDERED: VANCOMYCIN 1 GM in NA CHLORIDE 0.9% 250 ML IVPB SCH (07:00)
[2022-06-29] MEDS ORDERED: NA CHLORIDE 0.9% 100 ML IV ONE (07:32)
[2022-06-29] MEDS ORDERED: CEFEPIME 1 GM/VIAL ONE (07:32)
[2022-06-29] MEDS: HEPARIN/D5W 25,000 UNIT/500 ML BAG IV SCH (07:37)
--- NOTE | 2022-06-29 08:05 | P.PN ---
Date of Service: 06/29/22 This morning WBC increased significantly, UAM obtained which revealed UTI at 0500 on 06/29. Pt now meets criteria for severe sepsis given source of infection- UTI, leukocytosis, tachycardia and acute renal failure. Blood cultures obtained prior to abx, lactate <2, Pt started on Vanc/cefepime. No indication for 30cc/kg IVF bolus. Also noted troponin spike to >5,000 this morning. Patient started on heparin drip, was complaining of chest pain. Continue to trend troponins.
[2022-06-29 08:22] LABS: Blood Morphology Comment NOT SEEN (NOT SEEN); Platelet Estimate ADEQ
[2022-06-29] MEDS: HYDROMORPHONE HCL 0.5 MG/0.5 ML INJ IV PRN ×2 (08:46→13:49)
[2022-06-29] MEDS ORDERED: ASPIRIN 81 MG CHEWABLE TABLET PO ONE (13:28)
--- NOTE | 2022-06-29 13:29 | P.PN ---
Subjective Date of Service: 06/29/22 Chief Complaint: ARF No acute events since admission. He reports urinary retention and dribbling for some time now. He denies any active chest pain, shortness of breath, or palpitations. Review of Systems 10-point ROS is otherwise unremarkable Genitourinary: Retention Physical Examination - Vital Signs Temperature: 96.4 F Blood Pressure: 134/69 Pulse: 76 Respirations: 18 Pulse Ox (%): 98 - Physical Exam General: Alert, In no apparent distress, Oriented x3 HEENT: Atraumatic, Mucous membr. moist/pink, EOMI, Sclerae nonicteric Neck: JVD not distended Respiratory: Clear to auscultation bilaterally, Diminished Cardiovascular: Regular rate/rhythm, Normal S1 S2, No gallops, No rubs, No murmurs, Edema Gastrointestinal: Normal bowel sounds, Soft and benign, Non-distended, No tenderness, No rebound, No guarding Musculoskeletal: No clubbing Integumentary: No rashes Neurological: Normal speech, Normal affect - Studies Laboratory Data (last 24 hrs) 06/28/22 17:55: Uric Acid 7.1, Total Bilirubin 0.4, AST 12 L, ALT 17, Alkaline Phosphatase 73 06/28/22 17:55: PT 13.4 H, INR 1.22 06/28/22 17:55: WBC 15.30 H, Hgb 7.5 L, Hct 23.9 L, Plt Count 235 06/28/22 17:55: Sodium 144, Potassium 4.4, BUN 117 H, Creatinine 14.40 H*, Glucose 135 H Assessment And Plan - Plan # KDIGO Stage III Acute Kidney Injury on Chronic Kidney Disease Stage III likely due to 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 No obstructing calculi or ureteral mass identifiable. Enlarged lobulated prostate gland with prominent central calcification pattern. Hydronephrosis findings are much more pronounced but not new from 2019 imaging. Prostatic urethral outflow obstruction is suspected. Hydronephrosis causes thinning of the renal parenchyma. No renal mass seen. Isodense masses and pyelonephritis are not excluded on noncontrast imaging." - Nephrology consulted and spoke with Dr. Becerra - recommendations appreciated - He may require hemodialysis, appreciate recs - Urology consulted and spoke with Dr. Rodriguez - recommendations appreciated - Recommended Waters catheter with follow-up renal ultrasound in 4-5 days - Otherwise, outpatient follow-up with him - Creatinine = 14.4 -> 14.4 -> 13.7 (creatinine was 1.44 on 06/17/2018) - CO2 = 11 -> 11 -> 12 - BUN 117 -> 115 -> 115 - Urinalysis = 2+ glucose, 3+ blood, 500 leukocyte esterase, >50 RBCs, >50 WBCs, 3+ protein - Waters catheter inserted - strict I/O - IV fluids per Nephrology - Continue tamsulosin - Monitor creatinine and urine output - Renally dose medications # Chest Pain, concern for Acute Coronary Syndrome (Non-ST Segment Elevation Myocardial Infarction) # Hypertension # Hyperlipidemia - Evaluation thus far: - EKG: without STEMI criteria, trend - Serial troponin: 60.4 -> 67.2 -> 5085.2 -> 7696.9 - Ordered transthoracic echocardiogram - Chest x-ray = "small effusions bilaterally with prominence of the pulmonary interstitium that could reflect either mild edema or atypical pneumonia." - CT chest = "bibasilar atelectasis and minimal bilateral pleural effusions. Minimal infiltrate in the left base could be masked within the atelectatic lung." - Management plan: - Consult Cardiology and spoke with Dr. Briseno - recommendations appreciated - S/P aspirin 324 mg PO x 1 - Started aspirin, metoprolol, heparin drip - Continue home atorvastatin - Hold home lisinopril given WON - Incentive spirometry # Possible Severe Sepsis secondary to Urinary Tract Infection He met sepsis criteria based on HR > 90 bpm and WBC > 12,000, and the suspected source is urinary. Severe sepsis is suspected due to concern for tissue hypoperfusion/organ dysfunction based on creatinine >2.0 mg/dL (without ESRD). - Sepsis order set was initiated - Initial Lactate was 0.7 - Blood cultures drawn before antibiotics were given - Broad spectrum antibiotics started: Vancomycin + Cefepime - switched to Ceftriaxone - In regards to fluids: - 30 mL/kg of IV fluids was not administered given SBP > 90, MAP > 65, lactic acid < 4 Surya Lugo M.D.
[2022-06-29] MEDS: METOPROLOL TAR 25 MG TAB PO SCH (17:44)
--- NOTE | 2022-06-29 19:27 | CON ---
Date of Consultation: 06/29/2022 Addendum: Medications: The patient's medications include aspirin, atorvastatin, Rocephin 1 g daily, IV heparin for NSTEMI, and metoprolol. He is getting D5 with 1 amp of sodium bicarbonate at 75 cc an hour and he has been on tamsulosin and vancomycin, 1 time dose was given. Impression: 1.Acute, possibly on chronic renal insufficiency. The patient possibly has had bladder outlet obstr uction for a long time, which has led to severe bilateral hydroureteronephrosis with acute renal insu fficiency. Previous labs are from 2019. No other recent labs are able to be obtained at this time. Unclear if renal function is likely to recover even though he does not have any volume issues or pot assium issues at this time. He has severe metabolic acidosis. I have started him on some bicarb dri p with D5 water. We will continue the same and monitor closely. Plan: The patient may will possibl y need dialysis and I have discussed the possibility of needing dialysis for him. He is agreeable to do dialysis at this time. Tomorrow if his labs are not significantly improved, I will go ahead and request a General Surgery consult for placement of tunneled dialysis catheter. 2.Non-ST elevation myocardial infarction. The patient presented with chest pain and his cardiac enz ymes are significantly elevated, consistent with Non-ST elevation myocardial infarction. He is curre ntly being conservatively managed with aspirin, heparin, and beta blockers. We have requested a Card iology consult who will possibly do heart catheterization on him after optimization of his electrolyt e status. 3.Hypotension. Continue IV fluids. 4.Anemia with iron deficiency. The patient has significant anemia with some iron deficiency. I thais l go ahead and get him started on Venofer and once iron is replete, we can possibly start him on some Retacrit. 5.Bladder outlet obstruction with bilateral hydroureteronephrosis. Urology consult has been request ed. We will leave Waters catheter in. Continue Flomax and follow up closely. Plan was discussed with the patient in detail. All questions were answered. VV/MODL Voice ID: [id number] Report ID: [id number]
[2022-06-29] MEDS: TAMSULOSIN 0.4 MG SR CAP PO SCH (20:14)
--- NOTE | 2022-06-29 20:17 | CON ---
Date of Consultation: 06/29/2022 Reason For Consult: Acute renal failure. History Of Present Illness: Mr. Strauss is a 81-year-old male with past medical history significant for history of BPH, hypertension, hyperlipidemia. He presented to the emergency room yesterday with the complaints of chest pain and shortness of breath. He reported prior to admission and had gotten worse on the day of admission. Patient states that he has been having some difficulty with ur ination for about a month, but denies any symptoms prior to that. Denies any history of any kidney p roblems prior to that. Upon review of his labs that are in the emergency room, he was found to have severe acute renal failure with a creatinine of 14.4 yesterday and since that time, he has had a CT s can done of his abdomen which shows severe bilateral hydroureteronephrosis up to the level of bladder with a very thickened bladder wall consistent with chronic bladder outlet obstruction and a Waters ca theter was placed, at which time, there was about 800 cc of urine patient denies any chest pain at this time, denies any NSAID use and states that he has lost about 50 pounds of weight in the last two months because he was sick from flu and had the decreased appetite and had been eating very poorly. Past Medical History: Significant for history of hypertension and hyperlipidemia. He has been follo wed by Dr. Wyatt and has not seen him in a long time, history of thyroidectomy and cataract surgery. Family History: Noncontributory at this time. Review of Systems: Positive for weight loss of about 50 pounds in 2 months, decreased urination. Denies any NSAID use. DICTATION ENDS HERE. BALDEMAR/SEJAL Voice ID: [id number] Report ID: [id number]
[2022-06-29] MEDS: D5W 1,000 ML with NA BICARB 8.4% 75 MEQ IV SCH ×2 (21:39)
[2022-06-30] MEDS ORDERED: FENTANYL CITR 100 MCG/2 ML IV ONE ×2 (04:03→04:08)
[2022-06-30 05:11] LABS: Absolute Lymphocytes (CBC) 0.5 K/uL (0.7-4.9); Hematocrit 22.1 % (39.6-49.0); Lymphocytes % 3.2 % (15.3-44.8); MCV 98.6 fL (80-100); MPV 8.7 fL (7.6-11.3); RBC Red Blood Cell Count 2.24 M/uL (4.33-5.43)
[2022-06-30 05:35] LABS: Magnesium 1.5 mg/dL (1.6-2.4); Phosphorus 8.3 mg/dL (2.5-4.9); Potassium 4.1 mmol/L (3.5-5.1)
[2022-06-30] MEDS: METOPROLOL TAR 25 MG TAB PO SCH ×2 (06:00→18:11)
[2022-06-30] MEDS ORDERED: NA CHLORIDE 0.9% 250 ML IV SCH (06:00)
[2022-06-30] MEDS: HEPARIN/D5W 25,000 UNIT/500 ML BAG IV SCH (06:23)
[2022-06-30] MEDS ORDERED: SODIUM BICARB 50 MEQ/50ML VIAL IV ONE (07:50)
[2022-06-30] MEDS ORDERED: NA CHLORIDE 0.9% 250 ML ONE (07:56)
--- NOTE | 2022-06-30 07:56 | P.PN ---
Nephrology note (S) Pt seen this AM, still complaining of intermittent sub-sternal CP, remains on heparin gtt. H/H lower this AM, 1 unit PRBC ordered by primary team. Pt making some urine but renal function tests without sig improvement, discussed indications for CORRECTION WARDEN and pt is agreeable to placement of a dialysis catheter and HD. (O) Vitals reviewed in the EMR General: Chronically ill appearing, NAD HEENT: Atraumatic, PERRLA, Mucous membr. moist/pink, EOMI, Sclerae nonicteric Neck: Supple Respiratory: Non tachypnec, no rhonchi anteriorly Cardiovascular: Regular rate/rhythm, Normal S1 S2 Gastrointestinal: Normal bowel sounds, soft, ND, No tenderness. Rowe present Musculoskeletal: No tenderness, no sig LE edema Integumentary: No rashes Neurological: Normal speech, awake, alert, non focal Impression: 1. Possible sub-acute Stage III renal failure on suspected chronic advanced renal insufficiency. The patient possibly has had bladder outlet obstruction for a long time, which has led to severe bilateral hydroureteronephrosis with cortical thinning noted. Previous labs are from 2019. No other recent labs are able to be obtained at this time. Severe azotemia on admission without overt uremia. No significant renal recovery seen thus far with bladder decompression although pt is producing some urine with gross hematuria. Discussed indications for CORRECTION WARDEN and metab clearance, pt provides consent. Surgery consulted for dialysis catheter placement, pt on heparin drip, PTT check planned for this AM. WBC elevated on admission but cultures drawn and pt on Abx. TDC requested as anticipated on going need for HD and with LHC planned, pt may end up on anti platelet therapy afterwards. 2. Non-ST elevation myocardial infarction. Will f/u Cardiology plan, given pt's significant renal failure, pt will require HD support in order to allow for any contrast based investigation/intervention 3. Hypotension, other -gentle hydration initiated on admission, no UF planned on HD today 4. Anemia with iron deficiency. Multifactorial, H/H lower this AM, given NSTEMI, agree with proceeding with transfusion currently and maintain Hb > 8 5. 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 Maintain rowe, monitor hematuria and output. Binh Greer MD, [facility]
[2022-06-30] MEDS: D5W 1,000 ML with NA BICARB 8.4% 75 MEQ IV SCH ×4 (08:24→18:18)
--- NOTE | 2022-06-30 09:03 | CON ---
Date of Consultation: 06/30/2022 Reason For Consultation: Non-ST elevation myocardial infarction. History Of Present Illness: This is a 81-year-old male with history of hypertension, dyslipidemia, p resented to the emergency department with chest pain and shortness of breath. Symptoms have been goi ng on for a week, worse on the day of admission. On evaluation, he was found to be in acute renal fa ilure, creatinine of 14. Denies having any bleeding. Feels generally weak. At the present time, he is chest pain-free, last episode of chest pain was about 3 hours ago. Denies any other complaints. Past Medical History: Hypertension, dyslipidemia. Medications: Refer to reconciliation sheet for detailed list. Allergies: NO KNOWN DRUG ALLERGIES. Family History: No premature coronary artery disease or cancer. Social History: Does not smoke or drink. Does not use any drugs. Review of Systems: All systems reviewed and they were negative except what mentioned in HPI. Physical Examination: Vital Signs: Temperature is 98.4, pulse is 80, breathing at 16, blood pressure is 95/56, saturating 97%. General: Pleasant elderly male, in no distress. Head and Neck: Pupils are equal, reactive to light. Intact eye movements. No JVD. No cervical lym phadenopathy. Neck is supple. Thyroid is not enlarged. Lungs: Clear to auscultation bilaterally. No rhonchi, wheezing, or crackles. No accessory muscle u se. Heart: Regular rate and rhythm. No extra sounds. Abdomen: Soft, nontender. Bowel sounds positive. No organomegaly. No masses or hernia. No rigidi ty or rebound. Extremities: No edema, clubbing, or cyanosis. Intact pulses. Skin: No rash. Neurologic: Alert, awake, oriented x3. No acute focal deficits appreciated. Investigations: BUN is 108, creatinine is 12.5, and troponin peaked at 7696 and down to 4233. Assessment And Recommendations: 1.Non-ST elevation myocardial infarction. Continue aspirin and heparin pending the plan for the acu te renal failure. The patient is going to be started on dialysis and we will plan for coronary angio gram right after the decision is made. In the interim, the patient is acidotic with electrolyte imba gogo. We will wait on coronary angiogram until the above stable. Meanwhile, continue IV heparin an d baby aspirin. Use morphine for pain control and agree with metoprolol as well. 2.Acute renal failure, likely obstructive uropathy, status post Waters catheter and no urine output. 3.Severe anemia. Hemoglobin 6.8. No active bleeding. Check stool for occult blood and recommend t o transfuse at least 1 unit of PRBCs and get GI involved to rule out GI bleed as a cause of the anemi aRaoul BOCANEGRA/SEJAL Voice ID: [id number] Report ID: [id number]
[2022-06-30] MEDS: ASPIRIN 81 MG CHEWABLE TABLET PO SCH (09:46)
[2022-06-30] MEDS: CEFTRIAXONE 1,000 MG in NA CHLORIDE 0.9% 50 ML IVPB SCH (09:46)
[2022-06-30] MEDS: ATORVASTATIN 20 MG TAB PO SCH (09:46)
--- NOTE | 2022-06-30 10:34 | P.CNS ---
Date of Consult: 06/30/22 Reason for Consult: EMERGENT HEMODIALYSIS CATHETER PLACEMENT Chief Complaint: ARF History of Present Illness: 81 Y/O ADMITED FOR CHEST PAIN, RENAL FAILURE, ANEMIA, ACIDOSIS, ELEVATED CARDIAC ENZYMES ON HEPARIN DRIP. eMERGENT SURGICAL CONSULT PLACED RFOR hd CATHETER. HEPARIN DRIP ON HOLD FOR SEVERAL HOURS. I DISCUSSED CASE DR SRIVASTAVA AND EXPLAINED THE NEED OF EMERGENT CATHETER UNDESTANDING HIS HIGH RISK FOR ANY SURGICAL INTERVENTION. Allergies No Known Allergies Allergy (Verified 06/17/18 16:59) Home Medications: Atorvastatin Calcium [Lipitor] 20 mg PO DAILY 06/17/18 Smz./Tmp. [Bactrim Ds 800 MG/160 MG*] 1 tab PO Q12H 06/17/18 Tamsulosin [Flomax*] 1 cap PO DAILY 06/17/18 lisinopriL [Prinivil] 20 mg PO DAILY 06/17/18 levoFLOXacin [Levaquin] 500 mg PO DAILY #7 tab 06/20/18 - Past Medical/Surgical History Diabetic: No -: HTN -: hyperlipidemia -: thyroidectomy -: testicle removal -: cataract sx Psychosocial/ Personal History: Lives at home, alone - Family History Father Medical History: Cancer Notes: bone ca Mother Medical History: Heart disease - Social History Alcohol use: No CD- Drugs: No Caffeine use: No Place of Residence: Home Review of Systems General: Fever (NO), Chills (NO), Sweats (NO) Respiratory: Cough (NO), Shortness of Breath (NO) Cardiovascular: Chest Pain (NOT AT THIS TIME) Gastrointestinal: Unremarkable Genitourinary: Retention Integumentary: Bruising (NO) Neurological: Weakness Physical Examination Temp Pulse Resp BP Pulse Ox 98.4 F 111 H 18 96/48 L 94 06/30/22 08:00 06/30/22 08:00 06/30/22 08:00 06/30/22 08:00 06/30/22 08:00 General: Alert, Oriented x3, Cooperative HEENT: PERRLA Neck: Supple Respiratory: Clear to auscultation bilaterally Cardiovascular: Normal pulses, Other (SEE ICU RECORD) Gastrointestinal: Normal bowel sounds, Soft and benign, No rebound, No guarding Musculoskeletal: No erythema, No tenderness, No warmth Integumentary: No rashes, No breakdown Neurological: Normal speech Conclusions/Impression: 81 Y/O ADMITED FOR CHEST PAIN, RENAL FAILURE, ANEMIA, ACIDOSIS, ELEVATED CARDIAC ENZYMES ON HEPARIN DRIP. EMERGENT SURGICAL CONSULT PLACED FOR HEMODIALYSIS CATHETER PLACEMENT. HEPARIN DRIP ON HOLD FOR SEVERAL HOURS. I DISCUSSED CASE DR SRIVASTAVA AND HE EXPLAINED THE NEED OF EMERGENT CATHETER UNDESTANDING HIS HIGH RISK FOR ANY SURGICAL INTERVENTION. WE DISCUSS SEVERAL OPTION. AT THIS MOMENT DISCUSSING THE BAR WITH md, paTIENT AND DAUGHTER, A TEMPORARY NON TUNNEL CATHETER MAY BE THE OPTION UNTIL MORE STABLE WHERE HE CAN GO TO OR FOR TUNNELED CATHETER. STILL THERES SOME BAR PRESENT WITH INCLUDE INFECTION, BLEEDING, DAMAGE TO ADJACENT STRUCTURES, HEMATOMA, DAMAGE TO BLOOD VESSEL, LA EVEN . PATIENT CURRENTLY UNDERGOING BLOOD TRANSFUSION, HYPOTENSIVE. UNDERSTANDING ALL THOSE FACTORS, STILL THE CATHETER REQUESTED NOW. THE SURGERY DEPT WAS HELPFUL BY SENDING RESOURCES/PERSONNEL TO HELP ON THIS PROCEDURE IN ICU.
[2022-06-30] MEDS ORDERED: HEPARIN 500 UNIT/5 ML SYR IV ONE (10:48)
[2022-06-30 11:00] LABS: Arterial Blood Carboxyhemoglob 1.1 % (0-1.5); Blood Gas Oxyhemoglobin 92.6 % (94-97); Blood O2 Saturation 95.3 % (92-98.5)
--- NOTE | 2022-06-30 12:23 | P.BOP ---
Preoperative diagnosis: acute renal failure, anemia, elevated cardiac enzymes on anticoagulation Postoperative diagnosis: same Primary procedure: 1. Placement of left femoral hemodyalisis catheter, ultrasound guided Secondary procedure: 2. ultrasound left femoral vein for line placement Other procedure(s): 3. ultrasound of right femoral Estimated blood loss: <30cc Specimen: none Findings: see dictation Anesthesia: Local Complications: None Implants: HD catheter Transferred to: ICU Condition: Critical
[2022-06-30 14:23] LABS: Hematocrit 23.9 % (39.6-49.0)
[2022-06-30 15:27] LABS: Hepatitis B Core IgM Nonreactive (Nonreactive); Hepatitis B surface AG Interp. Nonreactive (Nonreactive)
[2022-06-30 15:34] LABS: Hepatitis B Surface Ab - Quant < 3.10 mIU/mL (<8.0)
--- NOTE | 2022-06-30 16:49 | EKG ---
Test Date: 2022-06-30 Test Time: 07:31:03 Fire Engine Pump Operator: GREG Monahan MEASUREMENT RESULTS: Intervals: Rate: 121 LA: QRSD: 122 QT: 306 QTc: 434 [place]: P: LA: QRS: 70 T: 247 INTERPRETIVE STATEMENTS: Atrial fibrillation with rapid ventricular response Left bundle branch block Abnormal ECG Compared to ECG 06/30/2022 07:30:21 Left bundle-branch block now present Intraventricular conduction delay no longer present T-wave abnormality no longer present Possible ischemia no longer present Electronically Signed On 06-30-22 16:49:26 PARK RANGER by Mario Briseno
--- NOTE | 2022-06-30 16:50 | EKG ---
Test Date: 2022-06-30 Test Time: 07:30:21 Dermatology Nurse Practitioner: GREG Monahan MEASUREMENT RESULTS: Intervals: Rate: 118 GA: QRSD: 124 QT: 308 QTc: 431 [place]: P: GA: QRS: 72 T: 249 INTERPRETIVE STATEMENTS: Atrial fibrillation with rapid ventricular response Nonspecific intraventricular conduction delay ST & Marked T wave abnormality, consider inferior ischemia Abnormal ECG Compared to ECG 06/28/2022 17:43:41 Intraventricular conduction delay now present T-wave abnormality now present Possible ischemia now present Sinus rhythm no longer present Left bundle-branch block no longer present Electronically Signed On 06-30-22 16:49:28 KERRICK KLEANER OPERATOR by Mario Briseno
--- NOTE | 2022-06-30 16:52 | EKG ---
Test Date: 2022-06-29 Test Time: 13:35:23 Cable Installer Repairer Helper: GREG Monahan MEASUREMENT RESULTS: Intervals: Rate: 77 AK: 166 QRSD: 134 QT: 464 QTc: 525 [place]: P: 72 AK: 166 QRS: 64 T: 127 INTERPRETIVE STATEMENTS: Sinus rhythm with marked sinus arrhythmia Nonspecific intraventricular block T wave abnormality, consider lateral ischemia Abnormal ECG Compared to ECG 06/28/2022 17:43:41 T-wave abnormality now present Possible ischemia now present Left bundle-branch block no longer present Electronically Signed On 06-30-22 16:50:20 CROZER OPERATOR by Mario Briseno
--- NOTE | 2022-06-30 16:52 | EKG ---
Test Date: 2022-06-29 Test Time: 13:36:11 Specialty Therapist: GREG Monahan MEASUREMENT RESULTS: Intervals: Rate: 77 GA: 164 QRSD: 130 QT: 472 QTc: 534 [place]: P: 76 GA: 164 QRS: 64 T: 126 INTERPRETIVE STATEMENTS: Sinus rhythm with premature atrial complexes Left bundle branch block Abnormal ECG Compared to ECG 06/28/2022 17:43:41 Atrial premature complex(es) now present Electronically Signed On 06-30-22 16:50:15 CHICKEN HATCHERY HELPER by Mario Briseno
--- NOTE | 2022-06-30 16:54 | EKG ---
Test Date: 2022-06-28 Test Time: 17:43:41 Cinetechnician: MB MEASUREMENT RESULTS: Intervals: Rate: 77 NC: 176 QRSD: 134 QT: 440 QTc: 497 [place]: P: 61 NC: 176 QRS: 51 T: 146 INTERPRETIVE STATEMENTS: Normal sinus rhythm Left bundle branch block Abnormal ECG No previous ECG available for comparison Electronically Signed On 06-30-22 16:51:36 CLINICAL APPLICATION SPECIALIST by Mario Briseno
[2022-06-30] MEDS ORDERED: HEPARIN/D5W 25,000 UNIT/500 ML BAG IV PRN (18:00)
[2022-06-30] MEDS: TAMSULOSIN 0.4 MG SR CAP PO SCH (21:08)
--- NOTE | 2022-06-30 21:58 | OP ---
Date of Procedure: 06/30/2022 Surgeon: Sam Georges MD Preoperative Diagnoses: Acute renal failure, in need of emergent hemodialysis, anemia, elevated card iac enzymes, on anticoagulations. Postoperative Diagnoses: Acute renal failure, in need of emergent hemodialysis, anemia, elevated car diac enzymes, on anticoagulations. Procedures: 1.Placement of a left femoral hemodialysis catheter, ultrasound-guided. 2.Ultrasound of the left femoral vein. 3.Ultrasound of the right femoral vein. Estimated Blood Loss: Less than 30 cc. Findings: Patent femoral veins. Anesthesia: Local. Implant: Mahurkar hemodialysis catheter. Indication: This is the case of a male, who comes to us with multiple medical problems including catherine al failure, anemia, elevated cardiac enzymes, on blood transfusion, on heparin anticoagulation, also hypotensive, emergently brought to the ICU and also a hemodialysis catheter was requested. They unde rstand the risks of this since patient is in anticoagulation and also having issues with not only his heart, but his kidneys, the risk that were present but at the same time, the hemodialysis need to be done. So I proposed a temporary catheter in the meantime, then in the next few days whenever he imp roved, then we may think about bring him to the OR to do a more formal procedure. The patient is in the ICU. The OR was kind under local anesthetic on the ICU. The patient and family fully explained the benefits, alternatives, and risks of hemodialysis catheter placement which include, bu t not limited to, infection, bleeding, damage to adjacent structures, anesthesia complication, hemato mas, MIs, PEs, even . They also understand this is a temporary catheter and we might have to ch shree this to a more ideal location if the person will be there for several months and then if he is g oing to be permanent, then we need peripheral access in [place]. They understood. The heparin was s topped several hours ago, but at the same time have to be restarted because of the cardiac workout, s o they understood the risks also of bleeding and hematoma. Consent was signed. Procedure In Detail: Patient brought in a flat position. A time-out was called. Right and left fem oral region were prepped and draped in a sterile fashion. Ultrasound of the right and left femoral w as done looking for patency. They were compressible veins. We tried the right side first. Local an esthesia was applied after time-out and then an 18-gauge needle was placed on the right femoral vein under ultrasound guidance, even though we put the wire through, the wire does not fit into passing th e iliacs and we repositioned the catheter again, but we could not get access to that area. So, we ab orted that procedure, put some pressure in that region for about 15 minutes, then moved to the left s oni. Once again, a time-out was called. Once again, local anesthesia was applied and then after kasey t, an 18-gauge needle was placed in the left femoral vein at the first attempt with the help of ultra sound guidance. Guidewire was passed through. Needle was removed. A small incision was made in the skin. Serial dilations were done and then a Mahurkar catheter was placed in that region and the suzette dewire was removed. Excellent backflow and inflow, lines were flushed with saline, secured in place with 3-0 nylon and covered with sterile dressings. No bleeding in any of those right or left femoral area and no pulsatile hematoma seen. The patient tolerated the procedure well. The heparin will be restarted soon if we see no major bleeding coming from that area. Patient tolerated the procedure w ell. At this moment, vital signs seems to be stable. DOROTHY/SEJAL Voice ID: [id number] Report ID: [id number]
--- NOTE | 2022-07-01 03:36 | P.PN ---
Subjective Date of Service: 06/30/22 Chart reviewed. Patient with acute coronary syndrome as well as acute renal failure. Patient appeared to have obstructive uropathy but this looks like it is been going on for quite a while. Waters catheter was placed in minimal urine output. Renal function has not really recovered. Decision for dialysis in the meantime. This will be started today. Patient is acidotic and hemodynamically unstable. Will transfer to ICU. Continue to monitor bicarb level. Will given amp of bicarb pending dialysis. Will wait for hemodialysis. Cardiac catheterization possibly after hemodialysis get started. Review of Systems 10-point ROS is otherwise unremarkable Physical Examination - Vital Signs Temperature: 98.3 F Blood Pressure: 110/47 Pulse: 83 Respirations: 22 Pulse Ox (%): 99 - Physical Exam General: Alert, In no apparent distress, Oriented x3 Respiratory: Clear to auscultation bilaterally, Normal air movement Cardiovascular: Regular rate/rhythm, Normal S1 S2, No murmurs Gastrointestinal: Normal bowel sounds, Soft and benign, Non-distended, No tenderness Musculoskeletal: No clubbing, No swelling, No tenderness Neurological: Sensation intact, Cranial nerves 3-12 intact - Studies Medications List Reviewed: Yes Assessment & Plan - Problems (Diagnosis) (1) ESRD (end stage renal disease) Current Visit: Yes Status: Acute (2) Obstructive uropathy Current Visit: Yes Status: Acute (3) Metabolic acidosis Current Visit: Yes Status: Acute (4) Anemia in chronic kidney disease Current Visit: Yes Status: Acute (5) ACS (acute coronary syndrome) Current Visit: Yes Status: Acute (6) Leukocytosis Current Visit: Yes Status: Acute - Plan Plan: 1. Hemodialysis access catheter per surgery 2. Dialysis per nephrology 3. Plan for cardiac catheterization once we start hemodialysis 4. Continue with bicarb drip; will give 1 amp of IV bicarb at this time 5. Monitor H&H; most likely anemia of chronic disease. Will transfuse 1 unit of packed red blood cells 6. Will transfer to ICU monitor hemodynamics more closely 7. GI/DVT prophylaxis Discharge Plan: Home Plan to discharge in: Greater than 2 days - Advance Directives Does patient have a Living Will: No Does patient have a Durable POA for Healthcare: No - Code Status/Comfort Care Code Status Assessed: Yes Code Status: Full Code Physician Review: Patient Assessed, Agree with Above Assessment and Plan Critical Care: No Time Spent Managing PTS Care (In Minutes): 40
--- NOTE | 2022-07-01 03:43 | P.PN ---
Date of Service: 07/01/22 Subjective Patient is clinically doing much better. Hemoglobin has decreased again. Plan to transfuse him 2 units of packed red blood cells during hemodialysis. Anticipate cardiac catheterization in the morning. Denies any chest pain. Review of Systems 10-point ROS is otherwise unremarkable Physical Examination - Vital Signs reviewed - Physical Exam General: Alert, In no apparent distress, Oriented x3 Respiratory: Clear to auscultation bilaterally, Normal air movement Cardiovascular: Regular rate/rhythm, Normal S1 S2, No murmurs Gastrointestinal: Normal bowel sounds, Soft and benign, Non-distended, No tenderness Musculoskeletal: No clubbing, No swelling, No tenderness Neurological: No focal deficits - Studies Medications List Reviewed: Yes Assessment & Plan - Problems (Diagnosis) (1) ESRD (end stage renal disease) Current Visit: Yes Status: Acute (2) Obstructive uropathy Current Visit: Yes Status: Acute (3) Metabolic acidosis Current Visit: Yes Status: Acute (4) Anemia in chronic kidney disease Current Visit: Yes Status: Acute (5) ACS (acute coronary syndrome) Current Visit: Yes Status: Acute (6) Leukocytosis Current Visit: Yes Status: Acute - Plan Continue with plan of care as mentioned below 1. Hemodialysis per nephrology; transfuse 2 units of packed red blood cells in anticipation for cardiac catheterization on Thursday 2. Strict I's and O's continue monitoring bicarb level. 3. Transfer to general medical floor in a.m. if clinically stable 4. DC bicarb drip; 5. Monitor H&H; 6. GI/DVT prophylaxis
[2022-07-01 04:25] LABS: Absolute Lymphocytes (CBC) 0.8 K/uL (0.7-4.9); Hematocrit 21.7 % (39.6-49.0); Lymphocytes % 5.8 % (15.3-44.8); MCV 92.3 fL (80-100); MPV 9.1 fL (7.6-11.3); RBC Red Blood Cell Count 2.35 M/uL (4.33-5.43)
[2022-07-01 04:49] LABS: Magnesium 1.6 mg/dL (1.6-2.4); Phosphorus 7.6 mg/dL (2.5-4.9); Potassium 3.4 mmol/L (3.5-5.1)
[2022-07-01] MEDS: METOPROLOL TAR 25 MG TAB PO SCH ×2 (06:00→16:49)
[2022-07-01] MEDS: ASPIRIN 81 MG CHEWABLE TABLET PO SCH (08:07)
[2022-07-01] MEDS: ATORVASTATIN 20 MG TAB PO SCH (08:07)
[2022-07-01] MEDS: CEFTRIAXONE 1,000 MG in NA CHLORIDE 0.9% 50 ML IVPB SCH (08:09)
--- NOTE | 2022-07-01 08:28 | ECHO ---
HEIGHT: 6 ft 0 in WEIGHT: 186 lb 11.2 oz DATE OF STUDY: 06/30/[address]: Rajeev Shelton NP 2-DIMENSIONAL: YES M.MODE: YES DOPPLER: YES COLOR FLOW: YES TDS: NO PORTABLE: YES DEFINITY: NO BUBBLE STUDY: NO DIAGNOSIS: CHEST PAIN CARDIAC HISTORY: CATHERIZATION: SURGERY: PROSTHETIC VALVE: PACEMAKER: MEASUREMENTS (cm) DIASTOLIC (NORMALS) SYSTOLIC (NORMALS) IVSd 1.1 (0.6-1.2) LA Diam 3.4 (1.9-4.0) LVEF 40-45% LVIDd 5.1 (3.5-5.7) LVIDs 4.3 (2.0-3.5) %FS 16% LVPWd 1.2 (0.6-1.2) Ao Diam 3.5 (2.0-3.7) 2 DIMENSIONAL ASSESSMENT: RIGHT ATRIUM: NORMAL LEFT ATRIUM: NORMAL RIGHT VENTRICLE: NORMAL LEFT VENTRICLE: DEPRESSED EJECTION FRACTION TRICUSPID VALVE: NORMAL MITRAL VALVE: MILD MITRAL REGURGITATION PULMONIC VALVE: NORMAL AORTIC VALVE: NORMAL PERICARDIAL EFFUSION: TRACE AORTIC ROOT: NORMAL LEFT VENTRICULAR WALL MOTION: MILD GLOBAL HYPOKINESIS. DOPPLER/COLOR FLOW: SEE BELOW. COMMENTS: 1. MILDLY DEPRESSED LEFT VENTRICULAR EJECTION FRACTION 40-45% 2. MILD GLOBAL HYPOKINESIS. 3. MILD MITRAL REGURGITATION 4. DIASTOLIC DYSFUNCTION TECHNOLOGIST: MODESTA GUERRERO
[2022-07-01] MEDS ORDERED: PNEUMOCOCCAL VACCINE 0.5 ML IMVAC ONE (09:00)
--- NOTE | 2022-07-01 09:46 | P.PN ---
Nephrology note (S) Pt seen in the ICU, appears better today, reports feeling better, denies any CP but reports some mild intermittent dyspnea. Dialyzed via Lt femoral Adeel yesterday, catheter flows were poor but pt completed HD (O) Vitals reviewed in the EMR General: Chronically ill appearing, NAD HEENT: Atraumatic, PERRLA, Mucous membr. moist/pink, EOMI, Sclerae nonicteric, NC present Neck: Supple Respiratory: Non tachypnec, no rhonchi anteriorly Cardiovascular: Regular rate/rhythm, Normal S1 S2 Gastrointestinal: Normal bowel sounds, soft, ND, No tenderness. Rowe present, Lt femoral adeel Musculoskeletal: No tenderness, no sig LE edema Integumentary: No rashes Neurological: Normal speech, awake, alert, non focal Impression: 1. Possible sub-acute Stage III renal failure on suspected chronic advanced renal insufficiency. The patient possibly has had bladder outlet obstruction for a long time, which has led to severe bilateral hydroureteronephrosis with cortical thinning noted. Previous labs are from 2019. No other recent labs are able to be obtained at this time. Severe azotemia on admission without overt uremia. No significant renal recovery seen initially with bladder decompression although pt is producing some urine with gross hematuria now clearing. Discussed indications for SENIOR QUALITY ASSURANCE ANALYST and metab clearance yesterday, pt provided consent. Surgery consulted for dialysis catheter placement, pt has been on heparin drip for ACS. WBC on admission elevated although blood and urine cultures neg thus far, nonetheless temp HD catheter placed for now and will seek replacement with TDC at a later time when pt in more stable condition. Will repeat HD today 2. Non-ST elevation myocardial infarction. Possible plan for [facility] tmrw per reports, pt will require on going HD support in order to allow for any contrast based investigation/intervention 3. Hypotension, other -stable, BP soft but holding without pressors or other. Gentle UF on HD if tolerated. 4. Anemia with iron deficiency. Multifactorial, H/H lower again this AM, given NSTEMI, consider additional transfusion on HD and maintain Hb > 8 5. 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 Maintain rowe for now. Binh Greer MD, [place]
[2022-07-01] MEDS ORDERED: NA CHLORIDE 0.9% 250 ML IV SCH (10:00)
[2022-07-01] MEDS ORDERED: ACETAMINOPHEN 325 MG TABLET PO PRN (10:17)
--- NOTE | 2022-07-01 13:26 | PN ---
Date of Progress Note: 07/01/2022 Subjective: Seen by bedside. Dialysis was initiated. Feels better. No chest pain. Review of Systems: No chest pain, shortness of breath, orthopnea, cough, nausea, vomiting, diarrhea. All other systems reviewed and there were negative. Physical Examination: Vital Signs: Reviewed. Head and Neck: Pupils are equal, reactive to light. Intact eye movements. Positive JVD elevation. Lungs: Crackles in both bases. No accessory muscle use or muscle retraction. Heart: Regular rate and rhythm. No extra sounds. Abdomen: Soft, nontender. Bowel sounds positive. No organomegaly. No masses or hernia. No rigidi ty or rebound. Extremities: There is no clubbing or cyanosis. Intact pulses. Skin: No rash. Neurologic: Alert, awake, oriented x3. No acute focal deficits appreciated. Investigations: On echo, EF is 40% to 45%. BUN is 82, creatinine 9.2. Troponin has trended down. Assessment And Recommendations: 1.Non-ST elevation myocardial infarction with significant electrolyte imbalance and advanced acute k idney failure. He started on hemodialysis. He is getting more stable and probably will be able to l ie flat for procedure by tomorrow. He is going to have another dialysis session today. Plan for n.p .o. past midnight and coronary angiogram early in the morning tomorrow. Meanwhile, continue heparin and baby aspirin. 2.Dyslipidemia. Continue statin. 3.Acute renal failure with advanced kidney injury and he is on hemodialysis. 4.Acute systolic congestive heart failure, likely ischemic. We will plan for coronary angiogram vijay orrow as above. SR/MODL Voice ID: [id number] Report ID: [id number]
[2022-07-01] MEDS ORDERED: VANCOMYCIN 1 GM in NA CHLORIDE 0.9% 250 ML IVPB SCH (17:00)
[2022-07-01] MEDS: TAMSULOSIN 0.4 MG SR CAP PO SCH (20:26)
[2022-07-02] MEDS ORDERED: LIDOCAINE 1% 20 ML MDV ONE (06:08)
[2022-07-02] MEDS ORDERED: HEPA 1000U/500MLS 2,000 UNIT/1,000 ML BAG IV ONE (06:08)
[2022-07-02] MEDS ORDERED: MIDAZOLAM HCL 2 MG/2 ML INJ ONE (06:17)
[2022-07-02] MEDS ORDERED: VERAPAMIL HCL 10 MG/4 ML VIAL IV ONE (06:17)
[2022-07-02] MEDS ORDERED: HEPARIN 5000 UNIT/ML 1 ML VIAL ONE (06:17)
[2022-07-02] MEDS ORDERED: FENTANYL CITR 100 MCG/2 ML ONE (06:17)
[2022-07-02] MEDS ORDERED: TICAGRELOR 90 MG TABLET PO ONE (06:18)
[2022-07-02] MEDS ORDERED: CLOPIDOGREL 75 MG TABLET ONE (06:18)
[2022-07-02] MEDS ORDERED: ASPIRIN 325 MG TAB ONE (06:18)
[2022-07-02] MEDS ORDERED: ATROPINE SULF 1 MG/10 ML SYR IV ONE (06:18)
[2022-07-02] MEDS ORDERED: HEPARIN 10,000 UNIT/10 ML VIAL IV ONE (06:18)
[2022-07-02] MEDS ORDERED: NA CHLORIDE 0.9% 500 ML ONE (06:39)
--- NOTE | 2022-07-02 07:36 | PN ---
Date of Progress Note: 07/02/2022 Subjective: Seen by bedside. Clinically doing well. No active chest pain. Review of Systems: No chest pain, shortness of breath, orthopnea, cough, nausea, vomiting, diarrhea. All other systems reviewed and they were negative. Physical Examination: Vital Signs: His temperature is 98.5, pulse is 82, breathing at 18, blood pressure is 139/62, satura ting 96%. General: Pleasant elderly male, in no apparent distress. Head and Neck: Pupils are equal, reactive to light. Intact eye movements. No JVD. No cervical lym phadenopathy. Neck is supple. Thyroid is not enlarged. Lungs: Clear to auscultation bilaterally. No rhonchi, wheezing, or crackles. No accessory muscle u se. Heart: Regular rate and rhythm. No extra sounds. Abdomen: Soft, nontender. Bowel sounds positive. No organomegaly. No masses or hernia. No rigidi ty or rebound. Extremities: No clubbing or cyanosis. Intact pulses. Skin: No rash. Neurologic: Alert, awake, oriented x3. No acute focal deficits appreciated. Investigations: Creatinine 9.2, BUN is 82, hemoglobin 7.1. Assessment And Recommendations: 1.Non-ST elevation myocardial infarction, status post coronary angiogram this morning. He has sever e multivessel coronary artery disease and now plan for transfer to [facility] for catal[place] ry artery bypass surgery. 2.Advanced kidney disease, on hemodialysis. 3.Dyslipidemia. Continue statin. SR/MODL Voice ID: [id number] Report ID: [id number]
[2022-07-02 08:27] LABS: Absolute Lymphocytes (CBC) 0.7 K/uL (0.7-4.9); Hematocrit 28.6 % (39.6-49.0); Lymphocytes % 6.2 % (15.3-44.8); MCV 93.3 fL (80-100); MPV 8.5 fL (7.6-11.3); RBC Red Blood Cell Count 3.06 M/uL (4.33-5.43)
[2022-07-02] MEDS ORDERED: MAGNESIUM SULFATE 1 gm IVPB 1 GM/100 ML BAG IV ONE (08:40)
[2022-07-02] MEDS ORDERED: POTASSIUM 25 MEQ EFFERV TAB PO ONE (08:41)
[2022-07-02 08:44] LABS: Potassium 3.3 mmol/L (3.5-5.1)
[2022-07-02] MEDS: ATORVASTATIN 20 MG TAB PO SCH (09:09)
[2022-07-02] MEDS: ASPIRIN 81 MG CHEWABLE TABLET PO SCH (09:09)
[2022-07-02] MEDS: CEFTRIAXONE 1,000 MG in NA CHLORIDE 0.9% 50 ML IVPB SCH (09:10)
[2022-07-02] MEDS: METOPROLOL TAR 25 MG TAB PO SCH (09:10)
--- NOTE | 2022-07-02 10:08 | OP ---
Date of Procedure: 07/02/2022 Surgeon: DARREL HUTTON Procedures Performed: 1.Selective coronary angiogram. 2.Left heart catheterization. Indication: Non-ST elevation myocardial infarction. Access: Right radial artery 6-Austrian closed with TR band. Complications: None. Bleeding: Less than 10 mL. Total contrast used 40 mL. Anesthesia: Total sedation time was 25 minutes, used fentanyl and Versed. Description Of Procedure: After risks, benefits, and alternatives were explained, the patient agreed to the procedure and signed informed consent. The patient was brought into the cardiac catheterizat ion laboratory, prepped and draped in the usual sterile fashion. Then, we accessed right radial neena ry using pediatric micropuncture kit, placed a 6-Austrian Slender sheath and took 5-Austrian [place] 4.0 ca theter into the aortic root over a J-wire and engaged left main and the right coronary artery, took s tandard views, and then engaged left main and right coronary artery, and then the catheter was advanc ed over the wire into the LV, measured the LVEDP and pullback did not record any gradient and then re moved the catheter and sheath, placed TR band with good hemostasis. Findings: 1.Left main; severe mid to distal at least 70% stenosis. 2.LAD; proximal diffuse 80% stenosis and then diffuse 60% in the mid segment and on the distal segme nt, there is focal 70% stenosis. Diagonal branches with luminal irregularities. 3.Left circumflex; codominant circulation with proximal 80%, mid 80% to 90%, and then in the OM, the re is proximal 60%, distal left circumflex has 70% stenosis. 4.RCA; large and dominant with proximal 40% stenosis, mid 60% stenosis and then diffuse 50% to 60% a ll the way distally and the PLV and PDA with luminal irregularities. 5.Elevated LVEDP at 50 mmHg. Conclusion: Severe multivessel coronary artery disease involving the left main. Recommendation: Coronary artery bypass surgery. SR/MODL Voice ID: [id number] Report ID: [id number]
--- NOTE | 2022-07-02 10:13 | P.PN ---
Nephrology note (S) Pt seen in the ICU post C, findings noted and discussed with pt. Pt denies CP or dyspnea, urine present in the rowe bag. (O) Vitals reviewed in the EMR General: Chronically ill appearing, NAD HEENT: Atraumatic, PERRLA, Mucous membr. moist/pink, EOMI, Sclerae nonicteric, NC present Neck: Supple Respiratory: Non tachypnec, no rhonchi anteriorly Cardiovascular: Regular rate/rhythm, Normal S1 S2 Gastrointestinal: Normal bowel sounds, soft, ND, No tenderness. Rowe present, Lt femoral adeel Musculoskeletal: No tenderness, no sig LE edema Integumentary: No rashes Neurological: Normal speech, awake, alert, non focal Impression: 1. Possible sub-acute Stage III renal failure on suspected chronic advanced renal insufficiency. The patient possibly has had bladder outlet obstruction for a long time, which has led to severe bilateral hydroureteronephrosis with cortical thinning noted. Previous labs in this EMR are from 2019. No other recent labs are able to be obtained at this time. Severe azotemia on admission without overt uremia. No significant renal recovery seen initially with bladder decompression although pt is producing some urine with gross hematuria now cleared Discussed indications for [facility] and metab clearance yesterday, pt provided consent. Surgery consulted for dialysis catheter placement, pt has been on heparin drip for ACS. WBC on admission elevated although blood and urine cultures neg thus far, nonetheless temp HD catheter placed for now and will seek replacement with TDC at a later time when pt in more stable condition. HD repeated yesterday, metab profile stable. Would have recommended potential additional HD today post contrast exposure with [facility] this AM but plan now is for pt to transfer and manager infrastructure not avail as busy with other acute treatments. Will dose lasix once to augment UOP 2. Non-ST elevation myocardial infarction. Echo with LVEF dysfunction. 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 3. Hypotension, other -stable/resolved, BP soft but holding without pressors or other. Gentle UF on HD if tolerated. 4. Anemia with iron deficiency. Multifactorial, H/H lower again yesterday AM, given NSTEMI, did order additional transfusion on HD and maintain Hb > 8. Hb acceptable this AM 5. 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 Maintain rowe for now. Binh Greer MD, [facility]
[2022-07-02] MEDS ORDERED: FUROSEMIDE 20 MG/ 2ML VIAL IV ONE (11:00)
[2022-07-02 17:14] VITALS: O2SAT 99
[2022-07-02 17:24] VITALS: BP 131/76; TEMP 97.6
--- NOTE | 2022-07-10 00:45 | P.DS ---
Discharge Date: 07/02/22 Disposition: [facility] Discharge Condition: GOOD Reason for Admission: ARF Consultations: Cardiology and Nephrology - Problems (1) ESRD (end stage renal disease) Status: Acute (2) Obstructive uropathy Status: Acute (3) Metabolic acidosis Status: Acute (4) Anemia in chronic kidney disease Status: Acute (5) ACS (acute coronary syndrome) Status: Acute (6) Leukocytosis Status: Acute Brief History of Present Illness: 81-year-old male with history of hypertension, hyperlipidemia presents to the emergency department with complaint of chest pain, shortness of breath. He reports that his symptoms have been going on over the course of the last 1 week, worse yesterday. Patient reports he has not seen his PCP lately has been out of his medications for the last 1 week. His labs in the ER demonstrated acute renal failure with a creatinine of 14.4 GFR 3 BUN 117 bicarb of 11 potassium 4.4 his high-sensitivity troponin initially is 60.4 BNP is 7423 ABG was performed which revealed a pH of 7.18 PCO2 of 24.2 HCO3 of 8.7 CBC was remarkable for normocytic anemia with a hemoglobin of 7.5 leukocytosis with white blood cell count of 15.3. Patient denies any melena, hematochezia or hematemesis chest x- ray revealed small pleural effusions bilaterally with prominence of the pulmonary interstitium that could reflect either mild edema or atypical pneumonia. CT chest abdomen pelvis noncontrast ordered to further evaluate. Review of previous CT shows suspected chronic bladder outlet obstruction, for this reason bladder scan was performed which revealed patient had 810 mL of urine in his bladder without the urge to void. Waters catheter was placed in the emergency department. Will need to admit for further evaluation and management of acute renal failure. Discussed case with nephrology on-call prior to admission, recommendation for Waters catheter, gentle hydration. Hospital Course: patient required a blood transfusion. Patient was started on hemodialysis and given blood transfusion. Patient had a heart catheterization which revealed multivessel disease which required transfer to a tertiary care facility for cardiothoracic surgery evaluation. Patient was transferred to [facility] for further treatment. Vital Signs/Physical Exam: Temp Pulse Resp BP Pulse Ox 97.6 F 81 28 H 131/76 98 07/02/22 16:00 07/02/22 17:00 07/02/22 17:00 07/02/22 17:00 07/02/22 17:00 General: Alert, In no apparent distress, Oriented x3 Laboratory Data at Discharge: WBC 10.70 K/uL (4.3-10.9) 07/02/22 08:01 Hgb 9.6 g/dL (13.6-17.9) L 07/02/22 08:01 Hct 28.6 % (39.6-49.0) L 07/02/22 08:01 Plt Count 180 K/uL (152-406) 07/02/22 08:01 PT 13.4 SECONDS (9.5-12.5) H 06/28/22 17:55 INR 1.22 06/28/22 17:55 APTT 55.0 SECONDS (24.3-36.9) H 07/02/22 01:06 Sodium 144 mmol/L (136-145) 07/02/22 08:01 Potassium 3.3 mmol/L (3.5-5.1) L 07/02/22 08:01 BUN 68 mg/dL (7-18) H 07/02/22 08:01 Creatinine 7.41 mg/dL (0.70-1.30) H* 07/02/22 08:01 Glucose 102 mg/dL (74-106) 07/02/22 08:01 Uric Acid 7.1 mg/dL (3.5-7.2) 06/28/22 17:55 Phosphorus 7.6 mg/dL (2.5-4.9) H 07/01/22 03:49 Magnesium 1.6 mg/dL (1.6-2.4) 07/01/22 03:49 Total Bilirubin 0.4 mg/dL (0.2-1.0) 06/28/22 17:55 AST 12 U/L (15-37) L 06/28/22 17:55 ALT 17 U/L (16-61) 06/28/22 17:55 Alkaline Phosphatase 73 U/L (45-117) 06/28/22 17:55 Triglycerides 83 mg/dL (<150) 06/29/22 04:19 Cholesterol 148 mg/dL (<200) 06/29/22 04:19 HDL Cholesterol 30 mg/dL (40-60) L 06/29/22 04:19 Cholesterol/HDL Ratio 4.93 06/29/22 04:19 Home Medications: Atorvastatin Calcium [Lipitor] 20 mg PO DAILY 06/17/18 Smz./Tmp. [Bactrim Ds 800 MG/160 MG*] 1 tab PO Q12H 06/17/18 Tamsulosin [Flomax*] 1 cap PO DAILY 06/17/18 lisinopriL [Prinivil] 20 mg PO DAILY 06/17/18 levoFLOXacin [Levaquin] 500 mg PO DAILY #7 tab 06/20/18 Physician Discharge Instructions: Transfer to [facility] Diet: Renal Activity: Fall precautions Followup: NONE,NONE [Primary Care Provider] - Time spent managing pt's care (in minutes): 35
== END 2022-07-02 17:00 | disposition short-term general hospital (02) | DRG 682 ==
LOC: ER 17:34 → ERHOLD 19:20 → 2ND 20:21 → 3RD-ICU 06-30 08:47
PROVIDERS: ADMIT Internal Medicine; ATTEND Hospitalist
PROC: 5A1D70Z Performance of Urinary Filtration, Intermittent, Less than 6 Hours Per Day (ICD-10-PCS; principal; 2022-06-30)
PROC: 06HY33Z Insertion of Infusion Device into Lower Vein, Percutaneous Approach (ICD-10-PCS; 2022-06-30)
PROC: 30233N1 Transfusion of Nonautologous Red Blood Cells into Peripheral Vein, Percutaneous Approach (ICD-10-PCS; 2022-06-30)
PROC: 4A023N7 Measurement of Cardiac Sampling and Pressure, Left Heart, Percutaneous Approach (ICD-10-PCS; 2022-07-02)
PROC: B2111ZZ Fluoroscopy of Multiple Coronary Arteries using Low Osmolar Contrast (ICD-10-PCS; 2022-07-02)
DX: N17.9 Acute kidney failure, unspecified (principal); A41.9 Sepsis, unspecified organism; I21.4 Non-ST elevation (NSTEMI) myocardial infarction; R65.20 Severe sepsis without septic shock; I50.21 Acute systolic (congestive) heart failure; N13.8 Other obstructive and reflux uropathy; E87.21 Acute metabolic acidosis; I13.2 Hypertensive heart and chronic kidney disease with heart failure and with stage 5 chronic kidney disease, or end stage renal disease; N18.6 End stage renal disease; D63.1 Anemia in chronic kidney disease; D50.9 Iron deficiency anemia, unspecified; N40.1 Benign prostatic hyperplasia with lower urinary tract symptoms; N13.6 Pyonephrosis; E78.5 Hyperlipidemia, unspecified; I25.10 Atherosclerotic heart disease of native coronary artery without angina pectoris; R31.0 Gross hematuria; R33.9 Retention of urine, unspecified; Z60.2 Problems related to living alone; Z99.2 Dependence on renal dialysis; Z79.01 Long term (current) use of anticoagulants; Z79.899 Other long term (current) drug therapy; Z20.822 Contact with and (suspected) exposure to COVID-19
CPT/HCPCS: 36415; 36430; 51702; 71045; 71250; 74176; 76377; 76937; 80048; 80061; 80076; 80202; 81001; 82550; 82607; 82728; 82747; 82805; 83036; 83540; 83605; 83735; 83880; 84100; 84439; 84443; 84466; 84484; 84550; 85014; 85018; 85025; 85610; 85730; 86705; 86706; 86850; 86900; 86901; 87040; 87086; 87088; 87340; 87811; 90935; 93005; 93306; 93458; 96361; 96374; 99285; C1893; J0461; J0692; J1170; J1642; J1644; J1940; J2001; J2250; J2270; J2405; J3010; J3370; J7040; J7050; P9016; Q9966

== ENCOUNTER 2022-07-31 20:57 | Emergency (ER) | payer OTHER ==
--- OUTSIDE RECORDS SUMMARY | 2022-07-31 21:08 | XMS REPORT | Continuity of Care Document ---
:1940 Author Organization [facility] t Address [address] [place] [address] Care Team Providers Name Role Phone CHRETIEN_F Attending Clinician Unavailable Srinath Kaur Attending Clinician Unavailable Santana-Mbayo_A_AH Attending Clinician Unavailable CHRETIEN_F Admitting Clinician Unavailable Jesus Larson Admitting Clinician Unavailable Santana-Mbayo_A_AH Admitting Clinician Unavailable Payers Payer Name Policy Type Policy Number Effective Date Expiration Date S kane [employer] [place] [id number] (MEDICARE REPLACEMENT/ADVANT AGE - HMO) [employer] [place] - [id number] 2019 [employer] 00:00:00 (MEDICARE REPLACEMENT/ADVANT AGE - HMO) Problems This patient has no known problems. Allergies, Adverse Reactions, Alerts Allergy Allergy Status Severity Reaction(s) Onset Inactive Treating Comm ents Source Name Type Date Date Clinician No Known DA Active U [facility] All[facility]ie 1-25 Clear s 00:00: Guerrier [address] [place] [address] Medications This patient has no known medications. Procedures Procedure Date / Time Performed Performing Clinician Macrina peña [id number] 2022-07-28 00:00:00 ALTMU DEANDRA [facility] [id number] 2022-07-26 00:00:00 ALTMU [facility] [id number] 2022-07-25 00:00:00 ALTMU DEANDRA [facility] [id number] 2022-07-23 00:00:00 [facility]U [facility] [id number] 2022-07-21 00:00:00 ALTMU [facility] [id number] 2022-07-18 00:00:00 [facility]U [facility] [id number] 2022-07-16 00:00:00 ALTMU [facility] [id number] 2022-07-15 00:00:00 CHAAB.01 [facility] [id number] 2022-07-15 00:00:00 CHAAB.01 [facility] [id number] 2022-07-15 00:00:00 CHAAB.01 [facility] [id number] 2022-07-15 00:00:00 ALTMU [facility] [id number] 2022-07-14 00:00:00 KYRPO [facility] [id number] 2022-07-12 00:00:00 ALTMU [facility] [id number] 2022-07-08 00:00:00 CHAAB.01 [facility] [id number] 2022-07-08 00:00:00 CHAAB.01 [facility] [id number] 2022-07-08 00:00:00 CHAAB.01 [facility] [id number] 2022-07-08 00:00:00 CHAAB.01 [facility] [id number] 2022-07-08 00:00:00 CHAAB.01 [facility] [id number] 2022-07-08 00:00:00 CHAAB.01 [facility] [id number] 2022-07-08 00:00:00 CHAAB.01 [facility] [id number] 2022-07-08 00:00:00 CHAAB.01 [facility] [id number] 2022-07-08 00:00:00 CHAAB.01 [facility] [id number] 2022-07-08 00:00:00 CHAAB.01 [facility] [id number] 2022-07-07 00:00:00 ALTMU [facility] [id number] 2022-07-06 00:00:00 ALTMU [facility] [id number] 2022-07-05 00:00:00 AL[facility]U [facility] [id number] 2022-07-04 00:00:00 ALTMU [facility] [id number] 2022-07-03 00:00:00 ALTMU [facility] [id number] 2022-07-02 00:00:00 RAMED [facility] Encounters Start End Encounter Admission Attending Care Care Encounter Source Date/Time Date/Time Type Type Clinicians Facility Department ID 2022-07-29 2022-07-29 Outpatient CHRETIEN_F [facility] [id number] 00:00:00 00:00:00 [facility] 2022-07-02 2022-07-28 Inpatient UR Vu, Srinath [facility] INTE [id number] [facility] 18:38:00 17:36:00 47 [facility] 2019-07-27 2019-07-[address] [facility] [phone] [facility] 07:29:00 07:29:00 _A_AH [id number] [facility] Results Test Description Test Time Test Comments Results Result Comments Source BASIC METABOLIC PANEL 2022-07-28 07:59:00 Test Item Value Reference Range Interpretation Comme nts SODIUM (test code = NA) 139 mEq/L 134-147 N POTASSIUM (test code = K) 4.7 mEq/L 3.4-5.0 N CHLORIDE (test code = CL) 107 mEq/L 100-108 N CARBON DIOXIDE (test code = 23 mEq/l 21-33 N CO2) ANION GAP (test code = GAP) 13 0-20 N GLUCOSE (test code = GLU) 90 mg/dL 70-110 N BLOOD UREA NITROGEN (test code 48 mg/dL 7-18 H = BUN) GLOMERULAR FILTRATION RATE 13.3 70-80 L T he Glomerular Filtration Rate is (test code = GFR) a calculat ed parameterbased on serum Creatinin e, patient age and sex. GFR values less than 60 mL/min/1.73 squ are meters are indicative ofCh ronic Kidney Disease. Values less than 15 mL/min/1.73squa re meters indicate Kidney failure. The calculation forGFR is based on the CKD-EPI (2020) calculat ion. This formulais race indifferen t and is the recommended for lucretia for GFRby the National Kidney Foundation for Adults.The GFR will not calculate if the sex is u nknown or if thepatient's ag e is <18 years. CREATININE (test code = CREAT) 4.3 mg/dL 0.6-1.3 H CALCIUM (test code = CA) 8.6 mg/dL 8.0-10.5 N [id number] 07:59:00 Test Item Value Reference Range Interpretation Comments MAGNESIUM (test code = MAG) 1.91 mg/dL 1.80-2.40 N CBC W/AUTO [id number] 06:58:00 Test Item Value Reference Range Interpretation Comments WHITE BLOOD CELL (test code = 10.5 x10 3/uL 4.5-11.0 N WBC) RED BLOOD CELL (test code = 2.79 x10 6/uL 4.00-5.60 L RBC) HEMOGLOBIN (test code = HGB) 8.1 g/dL 12.5-16.9 L HEMATOCRIT (test code = HCT) 26.4 % 37.5-50.7 L MEAN CELL VOLUME (test code = 94.6 fL 81.0-99.0 N MCV) MEAN CELL HGB (test code = MCH) 29.0 pg 27.0-33.0 N MEAN CELL HGB CONCETRATION 30.7 g/dL 33.0-37.0 L (test code = MCHC) RED CELL DISTRIBUTION WIDTH CV 16.1 % 11.5-14.5 H (test code = RDW) RED CELL DISTRIBUTION WIDTH SD 55.7 fL 37.0-54.0 H (test code = RDW-SD) PLATELET COUNT (test code = 308 x10 3/uL 150-400 N PLT) MEAN PLATELET VOLUME (test code 10.5 fL 7.0-9.0 H = MPV) NEUTROPHIL % (test code = NT%) 66.9 % 56.0-77.0 N IMMATURE GRANULOCYTE % (test 0.7 % 0.0-2.0 N code = IG%) LYMPHOCYTE % (test code = LY%) 13.8 % 14.0-32.0 L MONOCYTE % (test code = MO%) 7.9 % 4.8-9.0 N EOSINOPHIL % (test code = EO%) 9.8 % 0.3-3.7 H BASOPHIL % (test code = BA%) 0.9 % 0.0-2.0 N NUCLEATED RBC % (test code = 0.0 % 0-0 N NRBC%) NEUTROPHIL # (test code = NT#) 7.05 x10 3/uL 2.0-7.6 N IMMATURE GRANULOCYTE # (test 0.07 x10 3/uL 0.00-0.03 H code = IG#) LYMPHOCYTE # (test code = LY#) 1.45 x10 3/uL 1.0-3.8 N MONOCYTE # (test code = MO#) 0.83 x10 3/uL 0.1-0.8 H EOSINOPHIL # (test code = EO#) 1.03 x10 3/uL 0.0-0.2 H BASOPHIL # (test code = BA#) 0.09 x10 3/uL 0.0-0.2 N NUCLEATED RBC # (test code = 0.00 x10 3/uL 0.0-0.1 N NRBC#) MANUAL DIFF REQUIRED (test code NO = MDIFF) BASIC METABOLIC [id number] 08:27:00 Test Item Value Reference Range Interpretation Comments SODIUM (test code = 142 mEq/L 134-147 N NA) POTASSIUM (test code 4.6 mEq/L 3.4-5.0 N = K) CHLORIDE (test code 109 mEq/L 100-108 H = CL) CARBON DIOXIDE (test 26 mEq/l 21-33 N code = CO2) ANION GAP (test code 12 0-20 N = GAP) GLUCOSE (test code = 93 mg/dL 70-110 N GLU) BLOOD UREA NITROGEN 35 mg/dL 7-18 H (test code = BUN) GLOMERULAR 17.6 70-80 L The Glomerular FILTRATION RATE Filtration R ate is a (test code = GFR) calculated parameterbased on serum Creatinine, pat ient age and sex. GFR va luesless than 60 mL/min/ 1.73 square meters a re indicative ofCh ronic Kidney Disease. Values less than 15 mL/min/1.73squa re meters indicate Kidney failure. The calculation forGFR is based on the CKD-EPI (2020) calculat ion. This formulais race indifferent and is the recommended for lucretia for GFRby the [facility] Kidney Foundati on for Adults.The GFR will not calculate if th e sex is unknown or if thepatient's ag e is <18 years. CREATININE (test 3.4 mg/dL 0.6-1.3 H code = CREAT) CALCIUM (test code = 8.8 mg/dL 8.0-10.5 N CA) CBC W/AUTO [id number] 08:23:00 Test Item Value Reference Range Interpretation Comments WHITE BLOOD CELL (test code = 10.9 x10 3/uL 4.5-11.0 N WBC) RED BLOOD CELL (test code = 2.82 x10 6/uL 4.00-5.60 L RBC) HEMOGLOBIN (test code = HGB) 8.3 g/dL 12.5-16.9 L HEMATOCRIT (test code = HCT) 26.8 % 37.5-50.7 L MEAN CELL VOLUME (test code = 95.0 fL 81.0-99.0 N MCV) MEAN CELL HGB (test code = MCH) 29.4 pg 27.0-33.0 N MEAN CELL HGB CONCETRATION 31.0 g/dL 33.0-37.0 L (test code = MCHC) RED CELL DISTRIBUTION WIDTH CV 16.3 % 11.5-14.5 H (test code = RDW) RED CELL DISTRIBUTION WIDTH SD 55.7 fL 37.0-54.0 H (test code = RDW-SD) PLATELET COUNT (test code = 322 x10 3/uL 150-400 N PLT) MEAN PLATELET VOLUME (test code 10.5 fL 7.0-9.0 H = MPV) NEUTROPHIL % (test code = NT%) 70.7 % 56.0-77.0 N IMMATURE GRANULOCYTE % (test 0.6 % 0.0-2.0 N code = IG%) LYMPHOCYTE % (test code = LY%) 10.3 % 14.0-32.0 L MONOCYTE % (test code = MO%) 8.3 % 4.8-9.0 N EOSINOPHIL % (test code = EO%) 9.4 % 0.3-3.7 H BASOPHIL % (test code = BA%) 0.7 % 0.0-2.0 N NUCLEATED RBC % (test code = 0.0 % 0-0 N NRBC%) NEUTROPHIL # (test code = NT#) 7.69 x10 3/uL 2.0-7.6 H IMMATURE GRANULOCYTE # (test 0.06 x10 3/uL 0.00-0.03 H code = IG#) LYMPHOCYTE # (test code = LY#) 1.12 x10 3/uL 1.0-3.8 N MONOCYTE # (test code = MO#) 0.90 x10 3/uL 0.1-0.8 H EOSINOPHIL # (test code = EO#) 1.02 x10 3/uL 0.0-0.2 H BASOPHIL # (test code = BA#) 0.08 x10 3/uL 0.0-0.2 N NUCLEATED RBC # (test code = 0.00 x10 3/uL 0.0-0.1 N NRBC#) MANUAL DIFF REQUIRED (test code NO = MDIFF) [id number] 08:14:00 Test Item Value Reference Range Interpretation Comments MAGNESIUM (test code = MAG) 2.00 mg/dL 1.80-2.40 N - XR CHEST 1 [id number] 00:00:00 [facility] 1940 Sex: M FAX: oLs Maldonado [phone] [place]: St: ADM FAX: Lina Rivera [phone] FAX: Jesus Rebolledo MD [phone] Name: SHERRI ARCE [facility] : 1940 Age/S: 81/M [address] [place], [place] [address] Unit #: [id number] Loc: G.3354 [place] [address] Phys: Lina Schwarz MD Acct: [id number] Dis Date: Status: ADM IN PHONE #: [phone] Exam Date: 07/27/2022702 FAX #: [phone] Reason: R/O PLEURALEFFUSION EXAMS: CPT CODE: [id number] XR CHEST 1 V [id number] PROCEDURE INFORMATION: Exam: XR Chest Exam date and time: 07/27/2022 7:03 AM Age: 81 years old Clinical indication: Pain; Other: R/O pleural effusion TECHNIQUE: Imaging protocol: Radiologic exam of the chest. Views: 1 view. COMPARISON: CR XR CHEST 1V 07/26/2022 6:43 AM FINDINGS: Lungs: There are bibasilar opacities. A right IJ dialysis catheter remains in place. Pleural spaces: Small bilateral pleural effusions. There is left apical pleural thickening. No pneumothorax. Heart/Mediastinum: Heart size is within normal limits. Previous midline sternotomy. Bones/joints: Unremarkable. IMPRESSION: Bibasilar opacities with small bilateral pleural effusions. at 0821 Reported and si gned by: Herb Strong M.D. CC: Los Crawford DO; Lina Schwarz MD; Jesus Larson MD Technologist: Isidro Jarquin; Elaina Reeves, RT(R) Trnscrd Date/Time/By: 07/27/2022 (820) : By: MinaO Orig Print D/T: S: 07/27/2022 (6131) PAGE 1 Signed ReportUR CREATININE CLEARANCE [id number] 11:10:00 Test Item Value Reference Range Interpretation Comments CREATININE 7 MLS/MIN 70-130 L CLEARANCE RESULT (test code = CREATCLR) CREATININE (test 4.5 mg/dL 0.6-1.3 H code = CREAT) UR CREATININE 22.3 mg/dL The Reference Range and RANDOM (test code Method Per formance = CREATU) specificationsh ave not been establishe d for this fluid. The test resultshould be correlated into the clinical contex t forinterpretati on. UR CREATININE 0.5 GM/24HR 1.0-1.6 L 24HR (test code = [id number]) UR VOLUME (test 2050 mL code = VOL) UR COLLECTION 1440 MIN TIME (test code = COLTM) UR UREA NITROGEN [id number] 11:10:00 Test Item Value Reference Range Interpretation Comments UR UREA NITROGEN 178 mg/dL Not Estab. Performed A t: HD RANDOM (test code = [facility] [id number] UUN) [place], [place] [id number] terrance Anderson MD Ph:[phone] eviously reported result : 178 mg/dLEdited by: FARRAH on 07/26/22:161025 1110: UR UREA N IT RAN previously repo rted as: 178 mg/dL Perfo rmed At: [facility] ton [address] [place], [place] [id number] Es kahty Anderson MD Ph:[phone] UR UREA NITROGEN 24HR 4 g/24 hr 4-16 Perfor med At: HD (test code = UUN24T) [facility] [id number] [place], [place] [id number] terrance Anderson MD Ph:[phone] [id number] 04:43:00 Test Item Value Reference Range Interpretation Comments MAGNESIUM (test code = MAG) 1.76 mg/dL 1.80-2.40 L BASIC METABOLIC [id number] 04:41:00 Test Item Value Reference Range Interpretation Comments SODIUM (test code = 142 mEq/L 134-147 N NA) POTASSIUM (test code 4.4 mEq/L 3.4-5.0 N = K) CHLORIDE (test code 111 mEq/L 100-108 H = CL) CARBON DIOXIDE (test 25 mEq/l 21-33 N code = CO2) ANION GAP (test code 10 0-20 N = GAP) GLUCOSE (test code = 99 mg/dL 70-110 N GLU) BLOOD UREA NITROGEN 32 mg/dL 7-18 H (test code = BUN) GLOMERULAR 17.0 70-80 L The Glomerular FILTRATION RATE Filtration R ate is a (test code = GFR) calculated parameterbased on serum Creatinine, pat ient age and sex. GFR va luesless than 60 mL/min/ 1.73 square meters a re indicative ofCh ronic Kidney Disease. Values less than 15 mL/min/1.73squa re meters indicate Kidney failure. The calculation forGFR is based on the CKD-EPI (2020) calculat ion. This formulais race indifferent and is the recommended for lucretia for GFRby the Natio nal Kidney Foundati on for Adults.The GFR will not calculate if th e sex is unknown or if thepatient's ag e is <18 years. CREATININE (test 3.5 mg/dL 0.6-1.3 H code = CREAT) CALCIUM (test code = 8.3 mg/dL 8.0-10.5 N CA) CBC W/AUTO [id number] 04:19:00 Test Item Value Reference Range Interpretation Comments WHITE BLOOD CELL (test code = 10.8 x10 3/uL 4.5-11.0 N WBC) RED BLOOD CELL (test code = 2.72 x10 6/uL 4.00-5.60 L RBC) HEMOGLOBIN (test code = HGB) 8.0 g/dL 12.5-16.9 L HEMATOCRIT (test code = HCT) 26.1 % 37.5-50.7 L MEAN CELL VOLUME (test code = 96.0 fL 81.0-99.0 N MCV) MEAN CELL HGB (test code = MCH) 29.4 pg 27.0-33.0 N MEAN CELL HGB CONCETRATION 30.7 g/dL 33.0-37.0 L (test code = MCHC) RED CELL DISTRIBUTION WIDTH CV 16.1 % 11.5-14.5 H (test code = RDW) RED CELL DISTRIBUTION WIDTH SD 57.2 fL 37.0-54.0 H (test code = RDW-SD) PLATELET COUNT (test code = 316 x10 3/uL 150-400 N PLT) MEAN PLATELET VOLUME (test code 10.4 fL 7.0-9.0 H = MPV) NEUTROPHIL % (test code = NT%) 70.0 % 56.0-77.0 N IMMATURE GRANULOCYTE % (test 0.7 % 0.0-2.0 N code = IG%) LYMPHOCYTE % (test code = LY%) 10.4 % 14.0-32.0 L MONOCYTE % (test code = MO%) 7.5 % 4.8-9.0 N EOSINOPHIL % (test code = EO%) 10.7 % 0.3-3.7 H BASOPHIL % (test code = BA%) 0.7 % 0.0-2.0 N NUCLEATED RBC % (test code = 0.0 % 0-0 N NRBC%) NEUTROPHIL # (test code = NT#) 7.52 x10 3/uL 2.0-7.6 N IMMATURE GRANULOCYTE # (test 0.07 x10 3/uL 0.00-0.03 H code = IG#) LYMPHOCYTE # (test code = LY#) 1.12 x10 3/uL 1.0-3.8 N MONOCYTE # (test code = MO#) 0.81 x10 3/uL 0.1-0.8 H EOSINOPHIL # (test code = EO#) 1.15 x10 3/uL 0.0-0.2 H BASOPHIL # (test code = BA#) 0.08 x10 3/uL 0.0-0.2 N NUCLEATED RBC # (test code = 0.00 x10 3/uL 0.0-0.1 N NRBC#) MANUAL DIFF REQUIRED (test code NO = MDIFF) - XR CHEST 1 [id number] 00:00:00 [facility] : 1940 Sex: M FAX: Nilton Maldon[place]in [phone] [place]: St: ADM FAX: Lina Rivera [phone] FAX: Srinath Smith MD [phone] Name: SHERRI ARCE [facility] : 1940 Age/S: 81/M [address] [place] [address] Unit #: [id number] Loc: G.[address] [place] [address] Phys: Lina Schwarz MD Acct: [id number] Dis Date: Status: ADM IN PHONE #: [phone] Exam Date: 07/26/2022 0645 FAX #: [phone] Reason: R/O PLEURALEFFUSION EXAMS: CPT CODE: [id number] XR CHEST 1 V 31684 PROCEDURE INFORMATION: Exam: XR Chest Exam date and time: 07/26/2022 6:43 AM Age: 81 years old Clinical indication: Other: R/O pleural effusion TECHNIQUE: Imaging protocol: Radiologic exam of the chest. Views: 1 view. COMPARISON: CR XR CHEST 1V 07/19/2022 6:33 AM FINDINGS: Tubes, catheters and devices: Stable position of right central catheter. Lungs: Bibasilar consolidation and left perihilar opacity with bilateral pleural effusions similar to prior study. No pneumothorax bilaterally. Pleural spaces: See "Lungs" finding. Heart/Mediastinum: See "Bones/joints" finding. Bones/joints: Patient is status post median sternotomy. Enlarged cardiac silho uette and mediastinal structures are stable including aortic calcification. IMPRESSION: Bibasilar consolidation and left perihilar opacity with bilateral pleural effusions similar to prior study. at 1450 Reported and signed by: Chaim Alonzo M.D. CC: Los Crawford DO; Lina Schwarz MD; Srinath aKur MD Technologist: Isidro Jarquin; Elaina Reeves, RT(R) Trnscrd Date/Time/By: 07/26/2022 (703) : By: [email or web address] Orig Print D/T: S: 07/26/2022 (9974) PAGE 1 Signed [id number] 08:32:00 Test Item Value Reference Range Interpretation Comments MAGNESIUM (test code = MAG) 1.87 mg/dL 1.80-2.40 N CBC W/AUTO [id number] 07:46:00 Test Item Value Reference Range Interpretation Comments WHITE BLOOD CELL (test code = 10.6 x10 3/uL 4.5-11.0 N WBC) RED BLOOD CELL (test code = 2.85 x10 6/uL 4.00-5.60 L RBC) HEMOGLOBIN (test code = HGB) 8.2 g/dL 12.5-16.9 L HEMATOCRIT (test code = HCT) 27.3 % 37.5-50.7 L MEAN CELL VOLUME (test code = 95.8 fL 81.0-99.0 N MCV) MEAN CELL HGB (test code = MCH) 28.8 pg 27.0-33.0 N MEAN CELL HGB CONCETRATION 30.0 g/dL 33.0-37.0 L (test code = MCHC) RED CELL DISTRIBUTION WIDTH CV 16.1 % 11.5-14.5 H (test code = RDW) RED CELL DISTRIBUTION WIDTH SD 57.1 fL 37.0-54.0 H (test code = RDW-SD) PLATELET COUNT (test code = 364 x10 3/uL 150-400 N PLT) MEAN PLATELET VOLUME (test code 10.3 fL 7.0-9.0 H = MPV) NEUTROPHIL % (test code = NT%) 69.4 % 56.0-77.0 N IMMATURE GRANULOCYTE % (test 0.8 % 0.0-2.0 N code = IG%) LYMPHOCYTE % (test code = LY%) 8.9 % 14.0-32.0 L MONOCYTE % (test code = MO%) 8.6 % 4.8-9.0 N EOSINOPHIL % (test code = EO%) 11.4 % 0.3-3.7 H BASOPHIL % (test code = BA%) 0.9 % 0.0-2.0 N NUCLEATED RBC % (test code = 0.0 % 0-0 N NRBC%) NEUTROPHIL # (test code = NT#) 7.38 x10 3/uL 2.0-7.6 N IMMATURE GRANULOCYTE # (test 0.09 x10 3/uL 0.00-0.03 H code = IG#) LYMPHOCYTE # (test code = LY#) 0.95 x10 3/uL 1.0-3.8 L MONOCYTE # (test code = MO#) 0.91 x10 3/uL 0.1-0.8 H EOSINOPHIL # (test code = EO#) 1.21 x10 3/uL 0.0-0.2 H BASOPHIL # (test code = BA#) 0.10 x10 3/uL 0.0-0.2 N NUCLEATED RBC # (test code = 0.00 x10 3/uL 0.0-0.1 N NRBC#) MANUAL DIFF REQUIRED (test code NO = MDIFF) BASIC METABOLIC [id number] 07:38:00 Test Item Value Reference Range Interpretation Comments SODIUM (test code = 140 mEq/L 134-147 N NA) POTASSIUM (test code 4.6 mEq/L 3.4-5.0 N = K) CHLORIDE (test code 107 mEq/L 100-108 N = CL) CARBON DIOXIDE (test 22 mEq/l 21-33 N code = CO2) ANION GAP (test code 16 0-20 N = GAP) GLUCOSE (test code = 86 mg/dL 70-110 N GLU) BLOOD UREA NITROGEN 40 mg/dL 7-18 H (test code = BUN) GLOMERULAR 14.5 70-80 L The Glomerular FILTRATION RATE Filtration R ate is a (test code = GFR) calculated parameterbased on serum Creatinine, pat ient age and sex. GFR va luesless than 60 mL/min/ 1.73 square meters a re indicative ofCh ronic Kidney Disease. Values less than 15 mL/min/1.73squa re meters indicate Kidney failure. The calculation forGFR is based on the CKD-EPI (202) calculat ion. This formulais race indifferent and is the recommended for lucretia for GFRby the Nat nal Kidney Foundati on for Adults.The GFR will not calculate if th e sex is unknown or if thepatient's ag e is <18 years. CREATININE (test 4.0 mg/dL 0.6-1.3 H code = CREAT) CALCIUM (test code = 8.7 mg/dL 8.0-10.5 N CA) BASIC METABOLIC [id number] 08:00:00 Test Item Value Reference Range Interpretation Comments SODIUM (test code = 144 mEq/L 134-147 N NA) POTASSIUM (test code 4.0 mEq/L 3.4-5.0 N = K) CHLORIDE (test code 111 mEq/L 100-108 H = CL) CARBON DIOXIDE (test 26 mEq/l 21-33 N code = CO2) ANION GAP (test code 10 0-20 N = GAP) GLUCOSE (test code = 85 mg/dL 70-110 N GLU) BLOOD UREA NITROGEN 40 mg/dL 7-18 H (test code = BUN) GLOMERULAR 17.6 70-80 L The Glomerular FILTRATION RATE Filtration R ate is a (test code = GFR) calculated parameterbased on serum Creatinine, pat ient age and sex. GFR va luesless than 60 mL/min/ 1.73 square meters a re indicative ofCh ronic Kidney Disease. Values less than 15 mL/min/1.73squa re meters indicate Kidney failure. The calculation forGFR is based on the CKD-EPI (2020) calculat ion. This formulais race indifferent and is the recommended for lucretia for GFRby the Nat nal Kidney Foundati on for Adults.The GFR will not calculate if th e sex is unknown or if thepatient's ag e is <18 years. CREATININE (test 3.4 mg/dL 0.6-1.3 H code = CREAT) CALCIUM (test code = 8.4 mg/dL 8.0-10.5 N CA) [id number] 07:59:00 Test Item Value Reference Range Interpretation Comments MAGNESIUM (test code = MAG) 1.87 mg/dL 1.80-2.40 N CBC W/AUTO [id number] 06:08:00 Test Item Value Reference Range Interpretation Comments WHITE BLOOD CELL (test code = 10.4 x10 3/uL 4.5-11.0 N WBC) RED BLOOD CELL (test code = 2.63 x10 6/uL 4.00-5.60 L RBC) HEMOGLOBIN (test code = HGB) 7.8 g/dL 12.5-16.9 L HEMATOCRIT (test code = HCT) 25.0 % 37.5-50.7 L MEAN CELL VOLUME (test code = 95.1 fL 81.0-99.0 N MCV) MEAN CELL HGB (test code = MCH) 29.7 pg 27.0-33.0 N MEAN CELL HGB CONCETRATION 31.2 g/dL 33.0-37.0 L (test code = MCHC) RED CELL DISTRIBUTION WIDTH CV 16.1 % 11.5-14.5 H (test code = RDW) RED CELL DISTRIBUTION WIDTH SD 56.1 fL 37.0-54.0 H (test code = RDW-SD) PLATELET COUNT (test code = 331 x10 3/uL 150-400 N PLT) MEAN PLATELET VOLUME (test code 10.4 fL 7.0-9.0 H = MPV) NEUTROPHIL % (test code = NT%) 68.8 % 56.0-77.0 N IMMATURE GRANULOCYTE % (test 0.7 % 0.0-2.0 N code = IG%) LYMPHOCYTE % (test code = LY%) 9.8 % 14.0-32.0 L MONOCYTE % (test code = MO%) 8.7 % 4.8-9.0 N EOSINOPHIL % (test code = EO%) 11.0 % 0.3-3.7 H BASOPHIL % (test code = BA%) 1.0 % 0.0-2.0 N NUCLEATED RBC % (test code = 0.0 % 0-0 N NRBC%) NEUTROPHIL # (test code = NT#) 7.17 x10 3/uL 2.0-7.6 N IMMATURE GRANULOCYTE # (test 0.07 x10 3/uL 0.00-0.03 H code = IG#) LYMPHOCYTE # (test code = LY#) 1.02 x10 3/uL 1.0-3.8 N MONOCYTE # (test code = MO#) 0.90 x10 3/uL 0.1-0.8 H EOSINOPHIL # (test code = EO#) 1.14 x10 3/uL 0.0-0.2 H BASOPHIL # (test code = BA#) 0.10 x10 3/uL 0.0-0.2 N NUCLEATED RBC # (test code = 0.00 x10 3/uL 0.0-0.1 N NRBC#) MANUAL DIFF REQUIRED (test code NO = MDIFF) BASIC METABOLIC [id number] 08:15:00 Test Item Value Reference Range Interpretation Comments SODIUM (test code = 143 mEq/L 134-147 N NA) POTASSIUM (test code 4.2 mEq/L 3.4-5.0 N = K) CHLORIDE (test code 109 mEq/L 100-108 H = CL) CARBON DIOXIDE (test 24 mEq/l 21-33 N code = CO2) ANION GAP (test code 14 0-20 N = GAP) GLUCOSE (test code = 79 mg/dL 70-110 N GLU) BLOOD UREA NITROGEN 48 mg/dL 7-18 H (test code = BUN) GLOMERULAR 14.1 70-80 L The Glomerular FILTRATION RATE Filtration R ate is a (test code = GFR) calculated parameterbased on serum Creatinine, pat ient age and sex. GFR va luesless than 60 mL/min/ 1.73 square meters a re indicative ofCh ronic Kidney Disease. Values less than 15 mL/min/1.73squa re meters indicate Kidney failure. The calculation forGFR is based on the CKD-EPI (2020) calculat ion. This formulais race indifferent and is the recommended for lucretia for GFRby the [facility] for Ad[facility].The GFR will not calculate if th e sex is unknown or if thepatient's ag e is <18 years. CREATININE (test 4.1 mg/dL 0.6-1.3 H code = CREAT) CALCIUM (test code = 8.5 mg/dL 8.0-10.5 N CA) [id number] 08:10:00 Test Item Value Reference Range Interpretation Comments MAGNESIUM (test code = MAG) 2.00 mg/dL 1.80-2.40 N CBC W/AUTO [id number] 07:45:00 Test Item Value Reference Range Interpretation Comments WHITE BLOOD CELL (test code = 11.6 x10 3/uL 4.5-11.0 H WBC) RED BLOOD CELL (test code = 2.56 x10 6/uL 4.00-5.60 L RBC) HEMOGLOBIN (test code = HGB) 7.5 g/dL 12.5-16.9 L HEMATOCRIT (test code = HCT) 24.7 % 37.5-50.7 L MEAN CELL VOLUME (test code = 96.5 fL 81.0-99.0 N MCV) MEAN CELL HGB (test code = MCH) 29.3 pg 27.0-33.0 N MEAN CELL HGB CONCETRATION 30.4 g/dL 33.0-37.0 L (test code = MCHC) RED CELL DISTRIBUTION WIDTH CV 16.2 % 11.5-14.5 H (test code = RDW) RED CELL DISTRIBUTION WIDTH SD 58.1 fL 37.0-54.0 H (test code = RDW-SD) PLATELET COUNT (test code = 352 x10 3/uL 150-400 N PLT) MEAN PLATELET VOLUME (test code 10.5 fL 7.0-9.0 H = MPV) NEUTROPHIL % (test code = NT%) 71.0 % 56.0-77.0 N IMMATURE GRANULOCYTE % (test 0.9 % 0.0-2.0 N code = IG%) LYMPHOCYTE % (test code = LY%) 8.3 % 14.0-32.0 L MONOCYTE % (test code = MO%) 8.2 % 4.8-9.0 N EOSINOPHIL % (test code = EO%) 10.8 % 0.3-3.7 H BASOPHIL % (test code = BA%) 0.8 % 0.0-2.0 N NUCLEATED RBC % (test code = 0.0 % 0-0 N NRBC%) NEUTROPHIL # (test code = NT#) 8.26 x10 3/uL 2.0-7.6 H IMMATURE GRANULOCYTE # (test 0.10 x10 3/uL 0.00-0.03 H code = IG#) LYMPHOCYTE # (test code = LY#) 0.96 x10 3/uL 1.0-3.8 L MONOCYTE # (test code = MO#) 0.95 x10 3/uL 0.1-0.8 H EOSINOPHIL # (test code = EO#) 1.25 x10 3/uL 0.0-0.2 H BASOPHIL # (test code = BA#) 0.09 x10 3/uL 0.0-0.2 N NUCLEATED RBC # (test code = 0.00 x10 3/uL 0.0-0.1 N NRBC#) MANUAL DIFF REQUIRED (test code NO = MDIFF) [id number] 04:27:00 Test Item Value Reference Range Interpretation Comments MAGNESIUM (test code = MAG) 2.00 mg/dL 1.80-2.40 N BASIC METABOLIC [id number] 04:05:00 Test Item Value Reference Range Interpretation Comments SODIUM (test code = 143 mEq/L 134-147 N NA) POTASSIUM (test code 4.1 mEq/L 3.4-5.0 N = K) CHLORIDE (test code 109 mEq/L 100-108 H = CL) CARBON DIOXIDE (test 26 mEq/l 21-33 N code = CO2) ANION GAP (test code 13 0-20 N = GAP) GLUCOSE (test code = 94 mg/dL 70-110 N GLU) BLOOD UREA NITROGEN 35 mg/dL 7-18 H (test code = BUN) GLOMERULAR 18.3 70-80 L The Glomerular FILTRATION RATE Filtration R ate is a (test code = GFR) calculated parameterbased on serum Creatinine, pat ient age and sex. GFR va luesless than 60 mL/min/ 1.73 square meters a re indicative ofCh ronic Kidney Disease. Values less than 15 mL/min/1.73squa re meters indicate Kidney failure. The calculation forGFR is based on the CKD-EPI (2020) calculat ion. This formulais race indifferent and is the recommended for lucretia for GFRby the [facility] for Adults.The GFR will not calculate if th e sex is unknown or if thepatient's ag e is <18 years. CREATININE (test 3.3 mg/dL 0.6-1.3 H code = CREAT) CALCIUM (test code = 8.1 mg/dL 8.0-10.5 N CA) CBC W/AUTO [id number] 03:57:00 Test Item Value Reference Range Interpretation Comments WHITE BLOOD CELL (test code = 13.5 x10 3/uL 4.5-11.0 H WBC) RED BLOOD CELL (test code = 2.62 x10 6/uL 4.00-5.60 L RBC) HEMOGLOBIN (test code = HGB) 7.7 g/dL 12.5-16.9 L HEMATOCRIT (test code = HCT) 24.8 % 37.5-50.7 L MEAN CELL VOLUME (test code = 94.7 fL 81.0-99.0 N MCV) MEAN CELL HGB (test code = 29.4 pg 27.0-33.0 N MCH) MEAN CELL HGB CONCETRATION 31.0 g/dL 33.0-37.0 L (test code = MCHC) RED CELL DISTRIBUTION WIDTH CV 16.1 % 11.5-14.5 H (test code = RDW) RED CELL DISTRIBUTION WIDTH SD 55.5 fL 37.0-54.0 H (test code = RDW-SD) PLATELET COUNT (test code = 344 x10 3/uL 150-400 N PLT) MEAN PLATELET VOLUME (test 9.9 fL 7.0-9.0 H code = MPV) NEUTROPHIL % (test code = NT%) 75.6 % 56.0-77.0 N IMMATURE GRANULOCYTE % (test 1.0 % 0.0-2.0 N code = IG%) LYMPHOCYTE % (test code = LY%) 7.3 % 14.0-32.0 L MONOCYTE % (test code = MO%) 6.8 % 4.8-9.0 N EOSINOPHIL % (test code = EO%) 8.6 % 0.3-3.7 H BASOPHIL % (test code = BA%) 0.7 % 0.0-2.0 N NUCLEATED RBC % (test code = 0.0 % 0-0 N NRBC%) NEUTROPHIL # (test code = NT#) 10.21 x10 3/uL 2.0-7.6 H IMMATURE GRANULOCYTE # (test 0.14 x10 3/uL 0.00-0.03 H code = IG#) LYMPHOCYTE # (test code = LY#) 0.99 x10 3/uL 1.0-3.8 L MONOCYTE # (test code = MO#) 0.92 x10 3/uL 0.1-0.8 H EOSINOPHIL # (test code = EO#) 1.17 x10 3/uL 0.0-0.2 H BASOPHIL # (test code = BA#) 0.10 x10 3/uL 0.0-0.2 N NUCLEATED RBC # (test code = 0.00 x10 3/uL 0.0-0.1 N NRBC#) MANUAL DIFF REQUIRED (test NO code = MDIFF) [id number] 08:08:00 Test Item Value Reference Range Interpretation Comments MAGNESIUM (test code = MAG) 1.93 mg/dL 1.80-2.40 N BASIC METABOLIC [id number] 08:08:00 Test Item Value Reference Range Interpretation Comments SODIUM (test code = 141 mEq/L 134-147 N NA) POTASSIUM (test code 3.8 mEq/L 3.4-5.0 N = K) CHLORIDE (test code 108 mEq/L 100-108 N = CL) CARBON DIOXIDE (test 24 mEq/l 21-33 N code = CO2) ANION GAP (test code 13 0-20 N = GAP) GLUCOSE (test code = 93 mg/dL 70-110 N GLU) BLOOD UREA NITROGEN 58 mg/dL 7-18 H (test code = BUN) GLOMERULAR 12.6 70-80 L The Glomerular FILTRATION RATE Filtration R ate is a (test code = GFR) calculated parameterbased on serum Creatinine, pat ient age and sex. GFR va luesless than 60 mL/min/ 1.73 square meters a re indicative ofCh ronic Kidney Disease. Values less than 15 mL/min/1.73squa re meters indicate Kidney failure. The calculation forGFR is based on the CKD-EPI (2020) calculat ion. This formulais race indifferent and is the recommended for lucretia for GFRby the [facility] for Adults.The GFR will not calculate if th e sex is unknown or if thepatient's ag e is <18 years. CREATININE (test 4.5 mg/dL 0.6-1.3 H code = CREAT) CALCIUM (test code = 8.2 mg/dL 8.0-10.5 N CA) CBC W/AUTO [id number] 07:09:00 Test Item Value Reference Range Interpretation Comments WHITE BLOOD CELL (test code = 16.8 x10 3/uL 4.5-11.0 H WBC) RED BLOOD CELL (test code = 2.62 x10 6/uL 4.00-5.60 L RBC) HEMOGLOBIN (test code = HGB) 7.7 g/dL 12.5-16.9 L HEMATOCRIT (test code = HCT) 25.0 % 37.5-50.7 L MEAN CELL VOLUME (test code = 95.4 fL 81.0-99.0 N MCV) MEAN CELL HGB (test code = 29.4 pg 27.0-33.0 N MCH) MEAN CELL HGB CONCETRATION 30.8 g/dL 33.0-37.0 L (test code = MCHC) RED CELL DISTRIBUTION WIDTH CV 16.0 % 11.5-14.5 H (test code = RDW) RED CELL DISTRIBUTION WIDTH SD 56.6 fL 37.0-54.0 H (test code = RDW-SD) PLATELET COUNT (test code = 363 x10 3/uL 150-400 N PLT) MEAN PLATELET VOLUME (test 10.2 fL 7.0-9.0 H code = MPV) NEUTROPHIL % (test code = NT%) 79.9 % 56.0-77.0 H IMMATURE GRANULOCYTE % (test 1.0 % 0.0-2.0 N code = IG%) LYMPHOCYTE % (test code = LY%) 5.3 % 14.0-32.0 L MONOCYTE % (test code = MO%) 6.4 % 4.8-9.0 N EOSINOPHIL % (test code = EO%) 6.9 % 0.3-3.7 H BASOPHIL % (test code = BA%) 0.5 % 0.0-2.0 N NUCLEATED RBC % (test code = 0.0 % 0-0 N NRBC%) NEUTROPHIL # (test code = NT#) 13.41 x10 3/uL 2.0-7.6 H IMMATURE GRANULOCYTE # (test 0.16 x10 3/uL 0.00-0.03 H code = IG#) LYMPHOCYTE # (test code = LY#) 0.88 x10 3/uL 1.0-3.8 L MONOCYTE # (test code = MO#) 1.07 x10 3/uL 0.1-0.8 H EOSINOPHIL # (test code = EO#) 1.16 x10 3/uL 0.0-0.2 H BASOPHIL # (test code = BA#) 0.08 x10 3/uL 0.0-0.2 N NUCLEATED RBC # (test code = 0.00 x10 3/uL 0.0-0.1 N NRBC#) MANUAL DIFF REQUIRED (test NO code = MDIFF) BASIC METABOLIC [id number] 07:52:00 Test Item Value Reference Range Interpretation Comments SODIUM (test code = 143 mEq/L 134-147 N NA) POTASSIUM (test code 4.0 mEq/L 3.4-5.0 N = K) CHLORIDE (test code 108 mEq/L 100-108 N = CL) CARBON DIOXIDE (test 25 mEq/l 21-33 N code = CO2) ANION GAP (test code 14 0-20 N = GAP) GLUCOSE (test code = 87 mg/dL 70-110 N GLU) BLOOD UREA NITROGEN 44 mg/dL 7-18 H (test code = BUN) GLOMERULAR 14.5 70-80 L The Glomerular FILTRATION RATE Filtration R ate is a (test code = GFR) calculated parameterbased on serum Creatinine, pat ient age and sex. GFR va luesless than 60 mL/min/ 1.73 square meters a re indicative ofCh ronic Kidney Disease. Values less than 15 mL/min/1.73squa re meters indicate Kidney failure. The calculation forGFR is based on the CKD-EPI (2020) calculat ion. This formulais race indifferent and is the recommended for lucretia for GFRby the [facility] on for Adults.The GFR will not calculate if th e sex is unknown or if thepatient's ag e is <18 years. CREATININE (test 4.0 mg/dL 0.6-1.3 H code = CREAT) CALCIUM (test code = 8.4 mg/dL 8.0-10.5 N CA) [id number] 07:49:00 Test Item Value Reference Range Interpretation Comments MAGNESIUM (test code = MAG) 2.05 mg/dL 1.80-2.40 N CBC W/AUTO [id number] 07:31:00 Test Item Value Reference Range Interpretation Comments WHITE BLOOD CELL (test code = 14.7 x10 3/uL 4.5-11.0 H WBC) RED BLOOD CELL (test code = 2.67 x10 6/uL 4.00-5.60 L RBC) HEMOGLOBIN (test code = HGB) 8.0 g/dL 12.5-16.9 L HEMATOCRIT (test code = HCT) 25.6 % 37.5-50.7 L MEAN CELL VOLUME (test code = 95.9 fL 81.0-99.0 N MCV) MEAN CELL HGB (test code = 30.0 pg 27.0-33.0 N MCH) MEAN CELL HGB CONCETRATION 31.3 g/dL 33.0-37.0 L (test code = MCHC) RED CELL DISTRIBUTION WIDTH CV 16.0 % 11.5-14.5 H (test code = RDW) RED CELL DISTRIBUTION WIDTH SD 55.8 fL 37.0-54.0 H (test code = RDW-SD) PLATELET COUNT (test code = 359 x10 3/uL 150-400 N PLT) MEAN PLATELET VOLUME (test 10.1 fL 7.0-9.0 H code = MPV) NEUTROPHIL % (test code = NT%) 76.4 % 56.0-77.0 N IMMATURE GRANULOCYTE % (test 1.4 % 0.0-2.0 N code = IG%) LYMPHOCYTE % (test code = LY%) 6.5 % 14.0-32.0 L MONOCYTE % (test code = MO%) 7.1 % 4.8-9.0 N EOSINOPHIL % (test code = EO%) 7.8 % 0.3-3.7 H BASOPHIL % (test code = BA%) 0.8 % 0.0-2.0 N NUCLEATED RBC % (test code = 0.0 % 0-0 N NRBC%) NEUTROPHIL # (test code = NT#) 11.22 x10 3/uL 2.0-7.6 H IMMATURE GRANULOCYTE # (test 0.20 x10 3/uL 0.00-0.03 H code = IG#) LYMPHOCYTE # (test code = LY#) 0.95 x10 3/uL 1.0-3.8 L MONOCYTE # (test code = MO#) 1.04 x10 3/uL 0.1-0.8 H EOSINOPHIL # (test code = EO#) 1.14 x10 3/uL 0.0-0.2 H BASOPHIL # (test code = BA#) 0.12 x10 3/uL 0.0-0.2 N NUCLEATED RBC # (test code = 0.00 x10 3/uL 0.0-0.1 N NRBC#) MANUAL DIFF REQUIRED (test NO code = MDIFF) CBC W/AUTO [id number] 07:59:00 Test Item Value Reference Range Interpretation Comments WHITE BLOOD CELL (test code = 11.3 x10 3/uL 4.5-11.0 H WBC) RED BLOOD CELL (test code = 2.74 x10 6/uL 4.00-5.60 L RBC) HEMOGLOBIN (test code = HGB) 8.1 g/dL 12.5-16.9 L HEMATOCRIT (test code = HCT) 25.7 % 37.5-50.7 L MEAN CELL VOLUME (test code = 93.8 fL 81.0-99.0 N MCV) MEAN CELL HGB (test code = MCH) 29.6 pg 27.0-33.0 N MEAN CELL HGB CONCETRATION 31.5 g/dL 33.0-37.0 L (test code = MCHC) RED CELL DISTRIBUTION WIDTH CV 16.1 % 11.5-14.5 H (test code = RDW) RED CELL DISTRIBUTION WIDTH SD 54.7 fL 37.0-54.0 H (test code = RDW-SD) PLATELET COUNT (test code = 365 x10 3/uL 150-400 N PLT) MEAN PLATELET VOLUME (test code 10.2 fL 7.0-9.0 H = MPV) NEUTROPHIL % (test code = NT%) 72.3 % 56.0-77.0 N IMMATURE GRANULOCYTE % (test 1.7 % 0.0-2.0 N code = IG%) LYMPHOCYTE % (test code = LY%) 9.3 % 14.0-32.0 L MONOCYTE % (test code = MO%) 8.1 % 4.8-9.0 N EOSINOPHIL % (test code = EO%) 7.9 % 0.3-3.7 H BASOPHIL % (test code = BA%) 0.7 % 0.0-2.0 N NUCLEATED RBC % (test code = 0.0 % 0-0 N NRBC%) NEUTROPHIL # (test code = NT#) 8.15 x10 3/uL 2.0-7.6 H IMMATURE GRANULOCYTE # (test 0.19 x10 3/uL 0.00-0.03 H code = IG#) LYMPHOCYTE # (test code = LY#) 1.05 x10 3/uL 1.0-3.8 N MONOCYTE # (test code = MO#) 0.91 x10 3/uL 0.1-0.8 H EOSINOPHIL # (test code = EO#) 0.89 x10 3/uL 0.0-0.2 H BASOPHIL # (test code = BA#) 0.08 x10 3/uL 0.0-0.2 N NUCLEATED RBC # (test code = 0.00 x10 3/uL 0.0-0.1 N NRBC#) MANUAL DIFF REQUIRED (test code NO = MDIFF) BASIC METABOLIC [id number] 07:40:00 Test Item Value Reference Range Interpretation Comments SODIUM (test code = 141 mEq/L 134-147 N NA) POTASSIUM (test code 4.0 mEq/L 3.4-5.0 N = K) CHLORIDE (test code 106 mEq/L 100-108 N = CL) CARBON DIOXIDE (test 26 mEq/l 21-33 N code = CO2) ANION GAP (test code 13 0-20 N = GAP) GLUCOSE (test code = 91 mg/dL 70-110 N GLU) BLOOD UREA NITROGEN 31 mg/dL 7-18 H (test code = BUN) GLOMERULAR 19.0 70-80 L The Glomerular FILTRATION RATE Filtration R ate is a (test code = GFR) calculated parameterbased on serum Creatinine, pat ient age and sex. GFR va luesless than 60 mL/min/ 1.73 square meters a re indicative ofCh ronic Kidney Disease. Values less than 15 mL/min/1.73squa re meters indicate Kidney failure. The calculation forGFR is based on the CKD-EPI (2020) calculat ion. This formulais race indifferent and is the recommended for lucretia for GFRby the [facility] for Adults.The GFR will not calculate if th e sex is unknown or if thepatient's ag e is <18 years. CREATININE (test 3.2 mg/dL 0.6-1.3 H code = CREAT) CALCIUM (test code = 8.0 mg/dL 8.0-10.5 N CA) [id number] 07:36:00 Test Item Value Reference Range Interpretation Comments MAGNESIUM (test code = MAG) 2.12 mg/dL 1.80-2.40 N - XR CHEST 1 [id number] 00:00:00 [facility] 1940 Sex: M FAX: [place] [phone] [place]: St: ADM FAX: Gianna Carmona [phone] FAX: Srinath Smith MD [phone] Name: SHERRI ARCE [facility] : 1940 Age/S: 81/M [address] [place] [address] Unit #: [id number] Loc: G.33[address] [place] [address] Phys: Gianna Hoover Acct: [id number] Dis Date: Status: ADM IN PHONE #: [phone] Exam Date: 07/19/2022 [facility] FAX #: [phone] Reason: Post CV Surgery EXAMS: CPT CODE: [id number] XR CHEST 1 V [id number] PROCEDURE INFORMATION: Exam: XR Chest Exam date and time:07/19/2022 6:33 AM Age: 81 years old Clinical indication: Other: Post cv surgery TECHNIQUE: Imaging protocol: Radiologic exam of the chest. Views: 1 view. COMPARISON: CR XR CHEST 1V 07/18/2022 5:14 AM FINDINGS: Tubes, catheters and devices: Stable position of right central catheter. Lungs: Bibasilar con solidation has some improved aeration bilaterally. Small bilateral pleural effusions. Mild atelectasis about the left perihilar region. No other focal infiltrates within the lungs. Left apical pleural thickening similar to prior study. No pneumothorax bilaterally. Pleural spaces: See "Lungs" finding. H eart/Mediastinum: See "Bones/joints" finding. Bones/joints: Patient is status post median sternotomy. Enlarged cardiac silhouette and mediastinal structures are stable. Degenerative changes are seen about the thoracic spine and about both acromioclavicular joints. IMPRESSION: Bibasilar consolidation has some improved aeration bilaterally. Small bilateral pleural effusions. Mild atelectasis about the left perihilar region. No other focal infiltrates within the lungs. Left apical pleural thickening similar to prior study. at 1126 Reported and signed by: Chaim Alonzo M.D. 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 [facility] [id number] 08:44:00 Test Item Value Reference Range Interpretation Comments MAGNESIUM (test code = MAG) 1.97 mg/dL 1.80-2.40 N BASIC METABOLIC [id number] 08:39:00 Test Item Value Reference Range Interpretation Comments SODIUM (test code = 143 mEq/L 134-147 N NA) POTASSIUM (test code 3.8 mEq/L 3.4-5.0 N = K) CHLORIDE (test code 107 mEq/L 100-108 N = CL) CARBON DIOXIDE (test 25 mEq/l 21-33 N code = CO2) ANION GAP (test code 15 0-20 N = GAP) GLUCOSE (test code = 91 mg/dL 70-110 N GLU) BLOOD UREA NITROGEN 47 mg/dL 7-18 H (test code = BUN) GLOMERULAR 13.7 70-80 L The Glomerular FILTRATION RATE Filtration R ate is a (test code = GFR) calculated parameterbased on serum Creatinine, pat ient age and sex. GFR va luesless than 60 mL/min/ 1.73 square meters a re indicative ofCh ronic Kidney Disease. Values less than 15 mL/min/1.73squa re meters indicate Kidney failure. The calculation forGFR is based on the CKD-EPI (2020) calculat ion. This formulais race indifferent and is the recommended for lucretia for GFRby the [facility] on for Adults.The GFR will not calculate if th e sex is unknown or if thepatient's ag e is <18 years. CREATININE (test 4.2 mg/dL 0.6-1.3 H code = CREAT) CALCIUM (test code = 8.7 mg/dL 8.0-10.5 N CA) CBC W/AUTO [id number] 08:12:00 Test Item Value Reference Range Interpretation Comments WHITE BLOOD CELL (test code = 12.4 x10 3/uL 4.5-11.0 H WBC) RED BLOOD CELL (test code = 2.84 x10 6/uL 4.00-5.60 L RBC) HEMOGLOBIN (test code = HGB) 8.3 g/dL 12.5-16.9 L HEMATOCRIT (test code = HCT) 26.9 % 37.5-50.7 L MEAN CELL VOLUME (test code = 94.7 fL 81.0-99.0 N MCV) MEAN CELL HGB (test code = MCH) 29.2 pg 27.0-33.0 N MEAN CELL HGB CONCETRATION 30.9 g/dL 33.0-37.0 L (test code = MCHC) RED CELL DISTRIBUTION WIDTH CV 15.9 % 11.5-14.5 H (test code = RDW) RED CELL DISTRIBUTION WIDTH SD 55.3 fL 37.0-54.0 H (test code = RDW-SD) PLATELET COUNT (test code = 363 x10 3/uL 150-400 N PLT) MEAN PLATELET VOLUME (test code 10.1 fL 7.0-9.0 H = MPV) NEUTROPHIL % (test code = NT%) 73.2 % 56.0-77.0 N IMMATURE GRANULOCYTE % (test 1.7 % 0.0-2.0 N code = IG%) LYMPHOCYTE % (test code = LY%) 8.5 % 14.0-32.0 L MONOCYTE % (test code = MO%) 8.8 % 4.8-9.0 N EOSINOPHIL % (test code = EO%) 7.2 % 0.3-3.7 H BASOPHIL % (test code = BA%) 0.6 % 0.0-2.0 N NUCLEATED RBC % (test code = 0.0 % 0-0 N NRBC%) NEUTROPHIL # (test code = NT#) 9.05 x10 3/uL 2.0-7.6 H IMMATURE GRANULOCYTE # (test 0.21 x10 3/uL 0.00-0.03 H code = IG#) LYMPHOCYTE # (test code = LY#) 1.05 x10 3/uL 1.0-3.8 N MONOCYTE # (test code = MO#) 1.09 x10 3/uL 0.1-0.8 H EOSINOPHIL # (test code = EO#) 0.89 x10 3/uL 0.0-0.2 H BASOPHIL # (test code = BA#) 0.08 x10 3/uL 0.0-0.2 N NUCLEATED RBC # (test code = 0.00 x10 3/uL 0.0-0.1 N NRBC#) MANUAL DIFF REQUIRED (test code NO = MDIFF) - XR CHEST 1 [id number] 00:00:00 [facility] 1940 Sex: M FAX: Radha Ward MD [phone] [place]: St: ADM FAX: [place] [phone] FAX: Sarbjit Sherman Larry Mario [phone] FAX: Gianna Carmona [phone] Name: SHERRI ARCE [facility] : 1940 Age/S: 81/M [address] [place] [address] Unit #: [id number] Loc: G.[address] [place] [address] Phys: Gianna Hoover Acct: [id number] Dis Date: Status: ADM IN PHONE #: [phone] Exam Date: 07/18/202259 FAX #: [phone] Reason: Post CV Surgery EXAMS: CPT CODE: [id number] XR CHEST 1 V [id number] PROCEDURE INFORMATION:Exam: XR Chest Exam date and time: 07/18/2022 5:14 AM Age: 81 years old Clinical indication: Other: Post cv surgery TECHNIQUE: Imaging protocol: Radiologic exam of the chest. Views: 1 view. COMPARISON:CR XR CHEST 1V 07/17/2022 5:12 AM FINDINGS: Tubes, catheters and devices: Right internal jugular hemodialysis catheter tip at the level of central SVC. Faintly opaque EKG leads and epicardial pacer leadsoverlie the chest. Lungs: Ill-defined opacities in the mid and lower lung zones are unchanged. The hemidiaphragms are obscured. Pleural spaces: There is no pneumothorax. Bilateral pleural effusions grossly stable allowing for differences in positioning on semi upright technique. Pleural fluid/thickening extending over the left apex unchanged. Heart/Mediastinum: The cardiomediastinal silhouette is stable. Bones/joints: Sternotomy wires are intact. IMPRESSION: 1. Stable postoperative chest. 2. Stable pulmonary opacities likely combination of atelectasis and airspace disease. 3. Stable pleural effusions. Stable loculated left pleural fluid and or thickening extending to the apex. at 0755 Reported and signed by: Babak Ratliff M.D. CC: Radha Ward MD; [place] DO; Sarbjit Mcarthur MD; Gianna LIZARRAGA Technologist: Ines Marley, RT(R) Trnscrd Date/Time/By: 07/18/2022 (0755) : By: Robert Orig Print D/T: S: 0 07/18/2022 (075) PAGE 1 Signed [id number] 04:11:00 Test Item Value Reference Range Interpretation Comments MAGNESIUM (test code = MAG) 2.00 mg/dL 1.80-2.40 N BASIC METABOLIC [id number] 03:54:00 Test Item Value Reference Range Interpretation Comments SODIUM (test code = 143 mEq/L 134-147 N NA) POTASSIUM (test code 3.9 mEq/L 3.4-5.0 N = K) CHLORIDE (test code 107 mEq/L 100-108 N = CL) CARBON DIOXIDE (test 29 mEq/l 21-33 N code = CO2) ANION GAP (test code 11 0-20 N = GAP) GLUCOSE (test code = 113 mg/dL 70-110 H GLU) BLOOD UREA NITROGEN 33 mg/dL 7-18 H (test code = BUN) GLOMERULAR 17.0 70-80 L The Glomerular FILTRATION RATE Filtration R ate is a (test code = GFR) calculated parameterbased on serum Creatinine, pat ient age and sex. GFR va luesless than 60 mL/min/ 1.73 square meters a re indicative ofCh ronic Kidney Disease. Values less than 15 mL/min/1.73squa re meters indicate Kidney failure. The calculation forGFR is based on the CKD-EPI (2020) calculat ion. This formulais race indifferent and is the recommended for lucretia for GFRby the Natio nal Kidney Foundati on for Adults.The GFR will not calculate if th e sex is unknown or if thepatient's ag e is <18 years. CREATININE (test 3.5 mg/dL 0.6-1.3 H code = CREAT) CALCIUM (test code = 8.2 mg/dL 8.0-10.5 N CA) CBC W/AUTO [id number] 03:36:00 Test Item Value Reference Range Interpretation Comments WHITE BLOOD CELL (test code = 11.0 x10 3/uL 4.5-11.0 N WBC) RED BLOOD CELL (test code = 2.81 x10 6/uL 4.00-5.60 L RBC) HEMOGLOBIN (test code = HGB) 8.3 g/dL 12.5-16.9 L HEMATOCRIT (test code = HCT) 26.6 % 37.5-50.7 L MEAN CELL VOLUME (test code = 94.7 fL 81.0-99.0 N MCV) MEAN CELL HGB (test code = MCH) 29.5 pg 27.0-33.0 N MEAN CELL HGB CONCETRATION 31.2 g/dL 33.0-37.0 L (test code = MCHC) RED CELL DISTRIBUTION WIDTH CV 16.1 % 11.5-14.5 H (test code = RDW) RED CELL DISTRIBUTION WIDTH SD 55.4 fL 37.0-54.0 H (test code = RDW-SD) PLATELET COUNT (test code = 321 x10 3/uL 150-400 N PLT) MEAN PLATELET VOLUME (test code 10.1 fL 7.0-9.0 H = MPV) NEUTROPHIL % (test code = NT%) 71.6 % 56.0-77.0 N IMMATURE GRANULOCYTE % (test 2.8 % 0.0-2.0 H code = IG%) LYMPHOCYTE % (test code = LY%) 7.2 % 14.0-32.0 L MONOCYTE % (test code = MO%) 11.0 % 4.8-9.0 H EOSINOPHIL % (test code = EO%) 6.8 % 0.3-3.7 H BASOPHIL % (test code = BA%) 0.6 % 0.0-2.0 N NUCLEATED RBC % (test code = 0.0 % 0-0 N NRBC%) NEUTROPHIL # (test code = NT#) 7.90 x10 3/uL 2.0-7.6 H IMMATURE GRANULOCYTE # (test 0.31 x10 3/uL 0.00-0.03 H code = IG#) LYMPHOCYTE # (test code = LY#) 0.80 x10 3/uL 1.0-3.8 L MONOCYTE # (test code = MO#) 1.21 x10 3/uL 0.1-0.8 H EOSINOPHIL # (test code = EO#) 0.75 x10 3/uL 0.0-0.2 H BASOPHIL # (test code = BA#) 0.07 x10 3/uL 0.0-0.2 N NUCLEATED RBC # (test code = 0.00 x10 3/uL 0.0-0.1 N NRBC#) MANUAL DIFF REQUIRED (test code NO = MDIFF) - DUP VEIN [id number] 00:00:00 [facility] 1940 Sex: M Name: SHERRI ARCE [facility] : 1940 Age/S: 81 / M [address] [place] [address] Bl Unit #: [id number] Loc: [place] [address] Phys: Jana Mittal MD Acct: [id number] Dis Date: Status: ADM IN PHONE #: [phone] Exam Date: 07/17/2022 1511 FAX #: [phone] Reason: POST OP DVT PROPHYLAXIS EXAMS: CPTCODE: [id number] DUP VEIN WOJCIECH [id number] PROCEDURE INFORMATION: Exam: US Duplex Lower Extremity Veins, Bila teral Exam date and time: 07/17/2022 2:25 PM Age: 81 years old Clinical indication: Screening exam; Post op dvt prophylaxis TECHNIQUE: Imaging protocol: Real-time duplex ultrasound of the bilateral extremities with 2-D cleary scale, color Doppler flow and spectral waveform analysis including responses to compression and other maneuvers (when performed) with image documentation. Complete exam focused on the lower extremity veins. COMPARISON: US DUP VEIN WOJCIECH 07/03/2022 11:32 AM FINDINGS: Right deep veins: Unremarkable. The common femoral, femoral, proximal profunda femoral and popliteal veins are patent without thrombus. Normal Doppler waveforms. Normal compressibility and/or augmentation response. Right superficial veins: Superficial thrombus in the right greater saphenous vein. Left deep veins: Unremarkable. The common femoral, femoral, proximal profunda femoral and popliteal veins are patent without thrombus. Normal Doppler waveforms. Normal compressibility and/or augmentation response. Left superficial veins: Saphenofemoral junction is patent without thrombus. Soft tissues: Complex hypoechoic area in the right inguinal region without internal vascular flow or peripheral hyperemia measuring 4.2x 1.4 x 2.3 cm which may represent a hematoma. IMPRESSION: No evidence of deep vein thrombosis. Superficial thrombus in the right greater saphenous vein. Complex hypoechoic area in the right inguinal region without internal vascular flow or peripheral hyperemia measuring 4.2 x 1.4 x 2.3 cm which may represent a hematoma. at 1545 Reportedand signed by: Delmer Palma M.D. CC: Radha Ward MD; Los rCawford DO; Jana Mittal MD; Sarbjit Mcarthur MD Technologist: Alyson Coleman RDMS(AB) Trnscb Date/Time: 07/17/2022 (1545) [email or web address] Orig Print D/T: S: 07/17/2022 (2905) Probe: PAGE 1 Signed Report- XR CHEST 1 [id number] 00:00[facility] : 1940 Sex: M FAX: Radha Ward MD [phone] [place]: St: [facility] FAX: Los Crawford [phone] FAX: Willi August MD [phone] FAX: Sarbjit Sherman [phone] Name: SHERRI ARCE [facility] Pedro Guerrier : 1940 Age/S: 81/M [address] [place] [address] Unit #: [id number] Loc: [address] [place] [address] Phys: Willi August MD Acct: [id number] Dis Date: Status: ADM IN PHONE #: [phone] Exam Date: 07/17/2022 0554 FAX #: [phone] Reason: S/P CABG X 5 EXAMS: CPT CODE: [id number] XR CHEST 1 V 22708 PROCEDURE INFORMATION: Exam: XR Chest Exam date and time: 07/17/2022 5:12 AM Age: 81 years old Clinical indication: Other: S/P cabg x 5 TECHNIQUE: Imaging protocol: Radiologic exam of the chest. Views: 1 view. COMPARISON: 1. CR XR CHEST 1V 07/16/2022 9:31 AM 2. CR XR CHEST 1V 07/16/2022 4:51 AM FINDINGS: Tubes, catheters and devices: Right internal jugular hemodialysis catheter tip at the level of central SVC. Interval removal of small caliber left thoracostomy tube. Faintly opaque EKG and epicardial pacer leads overlie the chest. Lungs: Indistinct opacities in the mid and lower lung zones are unchanged. The hemidiaphragms are obscured. Pleural spaces: Left pleural effusion with fluid/thickening over the apex unchanged. Right pleural effusion grossly stable allowing for differences in positioning on semi upright technique. There is no pneumothorax. Heart/Mediastinum: The cardiomediastinal silhouette is stable. Bones/joints: Sternotomy wires are intact. IMPRESSION: 1. Stable postoperative cardiomediastinal silhouette. 2. Stablepulmonary opacities. 3. Stable pleural effusions. Pleural fluid/thickening extending over the left ap ex. No pneumothorax following thoracostomy tube removal. at 0756 Reported and signed by: Babak Ratliff M.D. CC: Radha Ward MD; Los Crawford DO; Willi August MD; Sarbjit Mcarthur MD Technologist: RT Britta(Taniya) Trnscrd Date/Time/By: 07/17/2022 (0756) : By: [email or web address] Orig Print D/T: S: 07/17/2022 (0757) PAGE1 Signed [id number] 04:39:00 Test Item Value Reference Range Interpretation Comments MAGNESIUM (test code = MAG) 2.10 mg/dL 1.80-2.40 N BASIC METABOLIC [id number] 03:57:00 Test Item Value Reference Range Interpretation Comments SODIUM (test code = 143 mEq/L 134-147 N NA) POTASSIUM (test code 4.3 mEq/L 3.4-5.0 N = K) CHLORIDE (test code 105 mEq/L 100-108 N = CL) CARBON DIOXIDE (test 29 mEq/l 21-33 N code = CO2) ANION GAP (test code 13 0-20 N = GAP) GLUCOSE (test code = 97 mg/dL 70-110 N GLU) BLOOD UREA NITROGEN 43 mg/dL 7-18 H (test code = BUN) GLOMERULAR 14.5 70-80 L The Glomerular FILTRATION RATE Filtration R ate is a (test code = GFR) calculated parameterbased on serum Creatinine, pat ient age and sex. GFR va luesless than 60 mL/min/ 1.73 square meters a re indicative ofCh ronic Kidney Disease. Values less than 15 mL/min/1.73squa re meters indicate Kidney failure. The calculation forGFR is based on the CKD-EPI (2020) calculat ion. This formulais race indifferent and is the recommended for lucretia for GFRby the Natio nal Kidney Foundati on for Adults.The GFR will not calculate if th e sex is unknown or if thepatient's ag e is <18 years. CREATININE (test 4.0 mg/dL 0.6-1.3 H code = CREAT) CALCIUM (test code = 8.4 mg/dL 8.0-10.5 N CA) CBC W/AUTO [id number] 03:37:00 Test Item Value Reference Range Interpretation Comments WHITE BLOOD CELL (test code = 10.8 x10 3/uL 4.5-11.0 N WBC) RED BLOOD CELL (test code = 2.73 x10 6/uL 4.00-5.60 L RBC) HEMOGLOBIN (test code = HGB) 8.2 g/dL 12.5-16.9 L HEMATOCRIT (test code = HCT) 25.6 % 37.5-50.7 L MEAN CELL VOLUME (test code = 93.8 fL 81.0-99.0 N MCV) MEAN CELL HGB (test code = MCH) 30.0 pg 27.0-33.0 N MEAN CELL HGB CONCETRATION 32.0 g/dL 33.0-37.0 L (test code = MCHC) RED CELL DISTRIBUTION WIDTH CV 16.1 % 11.5-14.5 H (test code = RDW) RED CELL DISTRIBUTION WIDTH SD 54.6 fL 37.0-54.0 H (test code = RDW-SD) PLATELET COUNT (test code = 282 x10 3/uL 150-400 N PLT) MEAN PLATELET VOLUME (test code 10.7 fL 7.0-9.0 H = MPV) NEUTROPHIL % (test code = NT%) 70.2 % 56.0-77.0 N IMMATURE GRANULOCYTE % (test 2.9 % 0.0-2.0 H code = IG%) LYMPHOCYTE % (test code = LY%) 7.1 % 14.0-32.0 L MONOCYTE % (test code = MO%) 12.2 % 4.8-9.0 H EOSINOPHIL % (test code = EO%) 6.9 % 0.3-3.7 H BASOPHIL % (test code = BA%) 0.7 % 0.0-2.0 N NUCLEATED RBC % (test code = 0.0 % 0-0 N NRBC%) NEUTROPHIL # (test code = NT#) 7.58 x10 3/uL 2.0-7.6 N IMMATURE GRANULOCYTE # (test 0.31 x10 3/uL 0.00-0.03 H code = IG#) LYMPHOCYTE # (test code = LY#) 0.77 x10 3/uL 1.0-3.8 L MONOCYTE # (test code = MO#) 1.32 x10 3/uL 0.1-0.8 H EOSINOPHIL # (test code = EO#) 0.75 x10 3/uL 0.0-0.2 H BASOPHIL # (test code = BA#) 0.08 x10 3/uL 0.0-0.2 N NUCLEATED RBC # (test code = 0.00 x10 3/uL 0.0-0.1 N NRBC#) MANUAL DIFF REQUIRED (test code NO = MDIFF) - XR CHEST 1 [id number] 00:00:00 [facility] : 1940 Sex: M FAX: Radha Ward MD [phone] [place]: St: FAX: Los Crawford [phone] FAX: Jana Mittal MD FAX: Sarbjit Sherman [phone] Name: SHERRI ARCE [facility] Pedro Guerrier : 1940 Age/S: 81/M [address] [place] [address] Unit #: [id number] Loc: [address] [address] Phys: Jana Mittal MD Acct: [id number] Dis Date: Status: ADM IN PHONE #: [phone] Exam Date: 07/16/2022 1055 FAX #: [phone] Reason: REASSESS PNEUMOTHORAX EXAMS: CPT CODE: [id number] XR CHEST 1 V 39444 PROCEDURE INFORMATION: Exam:XR Chest Exam date and time: 07/16/2022 9:31 AM Age: 81 years old Clinical indication: Pre- operative exam; Respiratory screening exam; Additional info: Reassess pneumothorax TECHNIQUE: Imaging protocol:Radiologic exam of the chest. Views: 1 view. COMPARISON: CR XR CHEST 1V 07/16/2022 4:51 AM FINDINGS: Tubes, catheters and devices: Right IJ catheter terminating at the cavoatrial junction. Left chest tube present. Lungs: Stable bibasilar airspace disease. Pleural spaces: Small left and stable small right layering pleural effusion. No pneumothorax. Heart/Mediastinum: Unchanged enlargement of the cardiomediastinal silhouette. Bones/joints: Intact median sternotomy wires. IMPRESSION: 1. Small left and st able small right layering pleural effusion. 2. Left chest tube present. No pneumothorax. 3. Stable bibasilar airspace opacities at 1158 Reported and signed by: Som Enriquez M.D. CC: Radha Ward MD; Los Crawford DO; Jana Mittal MD; Sarbjit Mcarthur MD Technologist: RT Jeff(Taniya) Trnscrd Date/Time/By: 07/16/2022 (2615) : By: [email or web address] Orig Print D/T: S: 07/16/2022 (115) PAGE 1 Signed Report- XR CHEST 1 [id number] 00:00:00 [facility] : 1940 Sex: M FAX: Radha Ward MD [phone] [place]: St: ADM FAX: Los Crawford [phone] FAX: Willi August MD [phone] FAX: Sarbjit Sherman [phone] Name: SHAYLEE ARCEE [facility] : 1940 Age/S: 81/M [address] [place] [address] Unit #: [id number] Loc: [address] [place] [address] Phys: Willi August MD Acct: [id number] Dis Date: Status: ADM IN PHONE #: [phone] Exam Date: 07/16/2022 0500 FAX #: [phone] Reason: SP CABG EXAMS: CPT CODE: [id number] XR CHEST 1 V 00046 PROCEDURE INFORMATION: Exam: XR Chest Exam date and time: 07/16/2022 4:51 AM Age: 81 years old Clinical indication: Other: S/P cabg; Rakan tional info: Sp cabg TECHNIQUE: Imaging protocol: Radiologic exam of the chest. Views: 1 view. COMPARISON: CR XR CHEST 1V 07/15/2022 4:54 PM FINDINGS: Tubes, catheters and devices: Removal of the left basilar chest tube. Stable left chest tube near the apex. Stable right-sided dialysis catheter. Lungs:The other lung opacities are stable. Pleural spaces: Stable pleural effusions. Heart/Mediastinum: Stable enlarged heart size. Vasculature: Atherosclerotic calcifications. Bones/joints: Stable. Median sternotomy wires. IMPRESSION: Removal of the left basilar chest tube. Otherwise, stable exam. Electr onically Signed by Ingrid Sseay on 07/16/2022 at 0710 Reported and signed by: Ranjan Sesay M.D. CC: Radha Ward MD; Los Crawford DO; Willi August MD; Sarbjit Mcarthur MD Technologist: RT Adrian(R) Trnscrd Date/Time/By: 07/16/2022 (0710) : By: [email or web address] Orig Print D/T: S: 07/16/2022 (0710) PAGE 1 Signed [id number] 18:16:00 Test Item Value Reference Range Interpretation Comments MAGNESIUM (test code = MAG) 2.39 mg/dL 1.80-2.40 N BASIC METABOLIC [id number] 17:44:00 Test Item Value Reference Range Interpretation Comments SODIUM (test code = 138 mEq/L 134-147 N NA) POTASSIUM (test code 5.1 mEq/L 3.4-5.0 H = K) CHLORIDE (test code 103 mEq/L 100-108 N = CL) CARBON DIOXIDE (test 24 mEq/l 21-33 N code = CO2) ANION GAP (test code 16 0-20 N = GAP) GLUCOSE (test code = 102 mg/dL 70-110 N GLU) BLOOD UREA NITROGEN 78 mg/dL 7-18 H (test code = BUN) GLOMERULAR 9.1 70-80 L The Glomerular FILTRATION RATE Filtration R ate is a (test code = GFR) calculated parameterbased on serum Creatinine, pat ient age and sex. GFR va luesless than 60 mL/min/ 1.73 square meters a re indicative ofCh ronic Kidney Disease. Values less than 15 mL/min/1.73squa re meters indicate Kidney failure. The calculation forGFR is based on the CKD-EPI (2020) calculat ion. This formulais race indifferent and is the recommended for lucretia for GFRby the Natio nal Kidney Foundati on for Adults.The GFR will not calculate if th e sex is unknown or if thepatient's ag e is <18 years. CREATININE (test 5.9 mg/dL 0.6-1.3 H code = CREAT) CALCIUM (test code = 8.5 mg/dL 8.0-10.5 N CA) BASIC METABOLIC [id number] 04:55:00 Test Item Value Reference Range Interpretation Comments SODIUM (test code = 138 mEq/L 134-147 N NA) POTASSIUM (test code 5.2 mEq/L 3.4-5.0 H = K) CHLORIDE (test code 105 mEq/L 100-108 N = CL) CARBON DIOXIDE (test 22 mEq/l 21-33 N code = CO2) ANION GAP (test code 16 0-20 N = GAP) GLUCOSE (test code = 82 mg/dL 70-110 GLU) BLOOD UREA NITROGEN 61 mg/dL 7-18 H (test code = BUN) GLOMERULAR 9.7 70-80 L The Glomerular FILTRATION RATE Filtration R ate is a (test code = GFR) calculated parameterbased on serum Creatinine, pat ient age and sex. GFR va luesless than 60 mL/min/ 1.73 square meters a re indicative ofCh ronic Kidney Disease. Values less than 15 mL/min/1.73squa re meters indicate Kidney failure. The calculation forGFR is based on the CKD-EPI (2020) calculat ion. This formulais race indifferent and is the recommended for lucretia for GFRby the Natio nal Kidney Foundati on for Adults.The GFR will not calculate if th e sex is unknown or if thepatient's ag e is <18 years. CREATININE (test 5.6 mg/dL 0.6-1.3 H code = CREAT) CALCIUM (test code = 8.1 mg/dL 8.0-10.5 N CA) [id number] 04:30:00 Test Item Value Reference Range Interpretation Comments MAGNESIUM (test code = MAG) 2.36 mg/dL 1.80-2.40 N CBC W/AUTO [id number] 04:16:00 Test Item Value Reference Range Interpretation Comments WHITE BLOOD CELL (test code = 14.4 x10 3/uL 4.5-11.0 H WBC) RED BLOOD CELL (test code = 2.85 x10 6/uL 4.00-5.60 L RBC) HEMOGLOBIN (test code = HGB) 8.6 g/dL 12.5-16.9 L HEMATOCRIT (test code = HCT) 26.7 % 37.5-50.7 L MEAN CELL VOLUME (test code = 93.7 fL 81.0-99.0 N MCV) MEAN CELL HGB (test code = 30.2 pg 27.0-33.0 N MCH) MEAN CELL HGB CONCETRATION 32.2 g/dL 33.0-37.0 L (test code = MCHC) RED CELL DISTRIBUTION WIDTH CV 16.2 % 11.5-14.5 H (test code = RDW) RED CELL DISTRIBUTION WIDTH SD 55.2 fL 37.0-54.0 H (test code = RDW-SD) PLATELET COUNT (test code = 250 x10 3/uL 150-400 N PLT) MEAN PLATELET VOLUME (test 10.9 fL 7.0-9.0 H code = MPV) NEUTROPHIL % (test code = NT%) 75.0 % 56.0-77.0 N IMMATURE GRANULOCYTE % (test 2.2 % 0.0-2.0 H code = IG%) LYMPHOCYTE % (test code = LY%) 5.4 % 14.0-32.0 L MONOCYTE % (test code = MO%) 10.3 % 4.8-9.0 H EOSINOPHIL % (test code = EO%) 6.3 % 0.3-3.7 H BASOPHIL % (test code = BA%) 0.8 % 0.0-2.0 N NUCLEATED RBC % (test code = 0.0 % 0-0 N NRBC%) NEUTROPHIL # (test code = NT#) 10.83 x10 3/uL 2.0-7.6 H IMMATURE GRANULOCYTE # (test 0.32 x10 3/uL 0.00-0.03 H code = IG#) LYMPHOCYTE # (test code = LY#) 0.78 x10 3/uL 1.0-3.8 L MONOCYTE # (test code = MO#) 1.48 x10 3/uL 0.1-0.8 H EOSINOPHIL # (test code = EO#) 0.91 x10 3/uL 0.0-0.2 H BASOPHIL # (test code = BA#) 0.11 x10 3/uL 0.0-0.2 N NUCLEATED RBC # (test code = 0.00 x10 3/uL 0.0-0.1 N NRBC#) MANUAL DIFF REQUIRED (test NO code = MDIFF) - XR CHEST 1 [id number] 00:00:00 [facility] : 1940 Sex: M FAX: Radha Ward MD [phone] [place]: St: [facility] FAX: Los Crawford [phone] FAX: Jana Mittal MD FAX: Sarbjit Sherman [phone] Name: SHERRI ARCE [facility] : 1940 Age/S: 81/M [address] [place] [address] Bl Unit #: [id number] Loc: [address] [place] [address] Phys: Jana Mittal MD Acct: [id number] Date: Status: ADM IN PHONE #: [phone] Exam Date: 07/15/2022 1710 FAX #: [phone] Reason: TUNNELED DIALYSIS CATHETER PLACEMENT EXAMS: CPT CODE: [id number] XR CHEST 1 V 49443 PROCEDURE INFORMATION: Exam: XR Chest Exam date and time: 07/15/2022 4:54 PM Age: 81 years old Clinical indication: Screening exam; Other screening; Additional info: Tunneled dialysis catheter placement TECHNIQUE: Imaging protocol: Radiologic exam of the chest. Views: 1 view. COMPARISON: CR XR CHEST 1V 07/15/2022 6:26 AMFINDINGS: Tubes, catheters and devices: There has been interval placement of a right internal jugular central line with tip in the SVC. All other support lines and tubes are stable. Lungs: Central vascular congestion with mild pulmonary edema and small pleural effusions are seen. Pleural spaces: Thereis no discrete pneumothorax. Heart/Mediastinum: Cardiac silhouette remains enlarged. Trace amount of pneumomediastinum is again seen. Bones/joints: Median sternotomy wires are seen. IMPRESSION: Placement of right internal jugular central line with tip in the SVC. at 1841 Reported and signed by: Ranjan Boo M.D. CC: Radha Ward MD; Los Crawford DO; Jana Mittal MD; Sarbjit Mcarthur MD Technologist: RT Mary(R) Trnscrd Date/Time/By: 07/15/2022 (1840) : By: Kourtney Orig Print D/T: S: 07/15/2022 (1840) PAGE 1 Signed Report- XR CHEST 1 [id number] 00:00:00[facility] : 1940 Sex: M FAX: Radha Ward MD [phone] [place]: St: ADM FAX: TyJoonprimo [phone] FAX: Edwardo Flannery MD [phone] FAX: Sarbjit Sherman [phone] Name: SHERRI ARCE [facility] : 1940 Age/S: 81/M [address] [place] [address] Unit #: [id number] Loc: [address] [place] [address] Phys: Edwardo Flannery MD Acct: [id number] Dis Date: Status: ADM IN PHONE #: [phone] Exam Date: 07/15/2022654 FAX #: [phone] Reason: FOLLOW UP EXAMS: CPT CODE: [id number] XR CHEST 1 V 79523 PROCEDURE INFORMATION: Exam: XR Chest Exam date and time: 07/15/2022 6:26 AM Age: 81 years old Clinical indication: Other: Follow up TECHNIQUE: Imaging protocol: Radiologic exam of the chest. Views: 1 view. COMPARISON: CR XR CHEST 1V 07/14/2022 2:07 PM FINDINGS: Tubes, catheters and devices: Left apical chest tube, unchanged position. Stable left basilar chest tube Lungs: Bibasilar airspace opacities, mildly worsened. Pleural spaces: Bila teral small pleural effusions. No pneumothorax. Heart/Mediastinum: Stable cardiomegaly. Uncoiled andcalcified aortic arch. Bones/joints: Median intact sternotomy wires. Stable. IMPRESSION: Left apicaland basilar chest tubes. No pneumothorax. Small bilateral pleural effusions. Bibasilar airspace opacities, mildly worsened. at 0727 Reported and signed by: Sree Schmidt M.D. CC: Radha Ward MD; Los Crawford DO; Edwardo Flannery MD; Sarbjit Mcarthur MD Technologist: Iban Jacob RT(R) Trnscrd Date/Time/By: 07/15/2022 (726) : By: [email or web address] Orig Print D/T: S: 07/15/2022 (726) PAGE 1 Signed ReportBASIC METABOLIC [id number] 20:44:00 Test Item Value Reference Range Interpretation Comments SODIUM (test code = 137 mEq/L 134-147 N NA) POTASSIUM (test code 5.1 mEq/L 3.4-5.0 H = K) CHLORIDE (test code 104 mEq/L 100-108 N = CL) CARBON DIOXIDE (test 24 mEq/l 21-33 N code = CO2) ANION GAP (test code 14 0-20 N = GAP) GLUCOSE (test code = 124 mg/dL 70-110 H GLU) BLOOD UREA NITROGEN 69 mg/dL 7-18 H (test code = BUN) GLOMERULAR 10.1 70-80 L The Glomerular FILTRATION RATE Filtration R ate is a (test code = GFR) calculated parameterbased on serum Creatinine, pat ient age and sex. GFR va luesless than 60 mL/min/ 1.73 square meters a re indicative ofCh ronic Kidney Disease. Values less than 15 mL/min/1.73squa re meters indicate Kidney failure. The calculation forGFR is based on the CKD-EPI (2020) calculat ion. This formulais race indifferent and is the recommended for lucretia for GFRby the Natio nal Kidney Foundati on for Adults.The GFR will not calculate if th e sex is unknown or if thepatient's ag e is <18 years. CREATININE (test 5.4 mg/dL 0.6-1.3 H code = CREAT) CALCIUM (test code = 8.2 mg/dL 8.0-10.5 N CA) BASIC METABOLIC [id number] 11:22:00 Test Item Value Reference Range Interpretation Comments SODIUM (test code = 133 mEq/L 134-147 L NA) POTASSIUM (test code 4.8 mEq/L 3.4-5.0 N = K) CHLORIDE (test code 101 mEq/L 100-108 N = CL) CARBON DIOXIDE (test 21 mEq/l 21-33 N code = CO2) ANION GAP (test code 15 0-20 N = GAP) GLUCOSE (test code = 126 mg/dL 70-110 H GLU) BLOOD UREA NITROGEN 51 mg/dL 7-18 H (test code = BUN) GLOMERULAR 10.1 70-80 L The Glomerular FILTRATION RATE Filtration R ate is a (test code = GFR) calculated parameterbased on serum Creatinine, pat ient age and sex. GFR va luesless than 60 mL/min/ 1.73 square meters a re indicative ofCh ronic Kidney Disease. Values less than 15 mL/min/1.73squa re meters indicate Kidney failure. The calculation forGFR is based on the CKD-EPI (2020) calculat ion. This formulais race indifferent and is the recommended for lucretia for GFRby the Natio nal Kidney Foundati on for Adults.The GFR will not calculate if th e sex is unknown or if thepatient's ag e is <18 years. CREATININE (test 5.4 mg/dL 0.6-1.3 H code = CREAT) CALCIUM (test code = 8.4 mg/dL 8.0-10.5 N CA) BASIC METABOLIC [id number] 04:19:00 Test Item Value Reference Range Interpretation Comments SODIUM (test code = 137 mEq/L 134-147 N NA) POTASSIUM (test code 5.1 mEq/L 3.4-5.0 H = K) CHLORIDE (test code 104 mEq/L 100-108 N = CL) CARBON DIOXIDE (test 22 mEq/l 21-33 N code = CO2) ANION GAP (test code 16 0-20 N = GAP) GLUCOSE (test code = 92 mg/dL 70-110 N GLU) BLOOD UREA NITROGEN 48 mg/dL 7-18 H (test code = BUN) GLOMERULAR 11.7 70-80 L The Glomerular FILTRATION RATE Filtration R ate is a (test code = GFR) calculated parameterbased on serum Creatinine, pat ient age and sex. GFR va luesless than 60 mL/min/ 1.73 square meters a re indicative ofCh ronic Kidney Disease. Values less than 15 mL/min/1.73squa re meters indicate Kidney failure. The calculation forGFR is based on the CKD-EPI (2020) calculat ion. This formulais race indifferent and is the recommended for lucretia for GFRby the [facility] Kidney Foundati on for Adults.The GFR will not calculate if th e sex is unknown or if thepatient's ag e is <18 years. CREATININE (test 4.8 mg/dL 0.6-1.3 H code = CREAT) CALCIUM (test code = 8.5 mg/dL 8.0-10.5 N CA) [id number] 04:19:00 Test Item Value Reference Range Interpretation Comments MAGNESIUM (test code = MAG) 2.40 mg/dL 1.80-2.40 N CBC W/AUTO [id number] 04:05:00 Test Item Value Reference Range Interpretation Comments WHITE BLOOD CELL (test code = 13.0 x10 3/uL 4.5-11.0 H WBC) RED BLOOD CELL (test code = 2.82 x10 6/uL 4.00-5.60 L RBC) HEMOGLOBIN (test code = HGB) 8.3 g/dL 12.5-16.9 L HEMATOCRIT (test code = HCT) 26.2 % 37.5-50.7 L MEAN CELL VOLUME (test code = 92.9 fL 81.0-99.0 N MCV) MEAN CELL HGB (test code = MCH) 29.4 pg 27.0-33.0 N MEAN CELL HGB CONCETRATION 31.7 g/dL 33.0-37.0 L (test code = MCHC) RED CELL DISTRIBUTION WIDTH CV 16.4 % 11.5-14.5 H (test code = RDW) RED CELL DISTRIBUTION WIDTH SD 55.8 fL 37.0-54.0 H (test code = RDW-SD) PLATELET COUNT (test code = 204 x10 3/uL 150-400 N PLT) MEAN PLATELET VOLUME (test code 10.8 fL 7.0-9.0 H = MPV) NEUTROPHIL % (test code = NT%) 75.4 % 56.0-77.0 N IMMATURE GRANULOCYTE % (test 1.8 % 0.0-2.0 N code = IG%) LYMPHOCYTE % (test code = LY%) 5.1 % 14.0-32.0 L MONOCYTE % (test code = MO%) 10.1 % 4.8-9.0 H EOSINOPHIL % (test code = EO%) 7.1 % 0.3-3.7 H BASOPHIL % (test code = BA%) 0.5 % 0.0-2.0 N NUCLEATED RBC % (test code = 0.0 % 0-0 N NRBC%) NEUTROPHIL # (test code = NT#) 9.80 x10 3/uL 2.0-7.6 H IMMATURE GRANULOCYTE # (test 0.24 x10 3/uL 0.00-0.03 H code = IG#) LYMPHOCYTE # (test code = LY#) 0.67 x10 3/uL 1.0-3.8 L MONOCYTE # (test code = MO#) 1.32 x10 3/uL 0.1-0.8 H EOSINOPHIL # (test code = EO#) 0.92 x10 3/uL 0.0-0.2 H BASOPHIL # (test code = BA#) 0.07 x10 3/uL 0.0-0.2 N NUCLEATED RBC # (test code = 0.00 x10 3/uL 0.0-0.1 N NRBC#) MANUAL DIFF REQUIRED (test code NO = MDIFF) - XR CHEST 1 [id number] 00:00:00 [facility] : 1940 Sex: M FAX: Radha Ward MD [phone] [place]: St: [facility] FAX: [place] [phone] FAX: Jana Mittal MD FAX: Sarbjit Sherman [phone] Name: SHERRI ARCE [facility] : 1940 Age/S: 81/M [address] [place] [address] Unit #: [id number] Loc: [address] [address] Phys: Jana Mittal MD Acct: [id number] Dis Date: Status: ADM IN PHONE #: [phone] Exam Date: 07/14/2022 1411 FAX #: [phone] Reason: CHEST TUBE PLACEMENT EXAMS: CPT CODE: [id number] XR CHEST 1 V 50073 PROCEDURE INFORMATION: Exam: XR Chest Exam date and time: 07/14/2022 2:07 PM Age: 81 years old Clinical indication: Device placement;Chest tube; Additional info: Chest tube placement TECHNIQUE: Imaging protocol: Radiologic exam of the chest. Views: 1 view. COMPARISON: CR XR CHEST 1V 07/14/2022 6:26 AM FINDINGS: Lungs: The other lung opacities are stable. Pleural spaces: Decreased size of left pneumothorax, now small involving 10% vol ume. Placement of left chest tube near the apex. Stable left basilar chest tube. Small left pleural effusion is probably present, stable. There could be a right pleural effusion, stable. Heart/Mediastinum: Stable heart size. Vasculature: Atherosclerotic calcifications. Bones/joints: Stable. Median sternotomy wires. IMPRESSION: Interval placement of left chest tube near the apex with decreased size ofleft pneumothorax now small. Otherwise, stable exam. at 1509 Reported and signed by: Ranjan Sesay M.D. CC: Radha Ward MD; [place] DO; Jana Mittal MD; Sarbjit Mcarthur MD Technologist: Eloisa Cali RT(R) Trnscrd Jonathan e/Time/By: 07/14/2022 (1509) : By: [email or web address] Orig Print D/T: S: 07/14/2022 (7114) PAGE 1 Signed Report- [facility] ([facility]Asp[facility]2022-07-14 00:00:00 [facility] : 1940 Sex: M Name: SHERRI ARCE [facility] : 1940 Age/S: 81 / M [address] [place] [address] Blvd Unit #: [id number] Loc: [place] [address] Phys: Gianna Hoover Acct: [id number] Dis Date: Status: ADM IN PHONE #: [phone] Exam Date: 07/14/20221508 FAX #: [phone] Reason: Left Pneumothorax- pigtail cath placement EXAMS: CPT CODE: [id number] CT GUID [facility] (Biopsy/Asp) 72361 PROCEDURE INFORMATION: Exam: IR Thoracentesis, Aspiration With Image Guidance Exam date and time: 07/14/2022 11:44 AM Age: 81 years old Clinical indication: Other: Left pneumothorax- pigtail cath placement TECHNIQUE: Imaging protocol: Radiology Procedure. Thoracentesis, needle or catheter, aspiration of the pleural space with imaging guidance. CT guidance was provided. Radiation optimization: All CT scans at this facility use at least one of these dose optimization techniques: automated exposure control; mA and/or kV adjustment per patient size (includes targeted exams where dose is matched to clinical indication); or iterative reconstruction. Guidance contrast: CT contrast route: Intra-venous; COMPARISON: US RETRO LTD 07/12/2022 4:03 PM RADIATION DOSE METRICS: Fluoroscopy time (seconds): Time Number of fluoro spot images: Spots Reference air kerma (DANIEL): Not provided. Total DLP (mGy-cm): 128.8 FINDINGS: Advanced practice providers: None. CONSENT AND SEDATION INFO: Consent: The risks, benefits and alternatives of the procedure were discussed prior to the procedure. Informed consent was obtained. Time out: Timeout was performed prior to the procedure. Sterile technique: All elements of maximal sterile barrier technique were followed which include cap, mask, sterile gown, sterile gloves, sterile full-body drape, hand hygiene, 2% chlorhexidine for cutaneous antisepsis (skin prep), sterile ultrasound gel, and sterile probe cover. Level of pain control: I administered pain control throughout this procedure. The patient was monitored and observed by hospital nurse, an independent trained observer. The nurse pushed medications at might erection and monitored patient's level of consciousness and physiological status throughout. The record is permanently stored in the hospital information system. Medications for pain control:25 mcg of IV Fentanyl. Procedure summary: After written consent was obtained the patient was placed s upine on the CT table and the left apical pneumothorax was then localized under CT guidance. The skin was then prepped and draped in the PAGE 1 Signed Report (CONTINUED) Name: SHERRI ARCE [facility] : 1940 Age/S: 81 / M [address] [place] [address] Unit #: [id number] Loc: [place] [address] Phys: Gianna Hoover Acct: [id number] Dis Date: Status: ADM IN PHONE #: [phone] Exam Date: 07/14/2022 1509 FAX #: [phone] Reason: Left Pneumothorax- pigtail cath placement EXAMS: CPT CODE: [id number] CT GUID [facility] (Biopsy/Asp) 07659 (Continued) usual sterile fashion and satisfactory an esthesia was obtained with 1% local lidocaine and IV fentanyl. An 18 gauge Chiba needle was then introduced into the pneumothorax through a left anterior superior approach and good position was confirmed with repeat CT imaging and aspiration of air. A wire was then advanced into the left pleural cavity and the tract was dilated to 8 Namibian. An 8.5 Namibian pigtail catheter was then placed. The catheterwas then connected to a pleura vac which was connected to low continuous wall suction. Repeat CT imaging demonstrated resolution of the pneumothorax. The catheter was then secured at the skin exit sitewith a 2 0 silk suture. A clean dressing was then applied. The patient tolerated the procedure well.Complications: No complications. IMPRESSION: CT-guided left chest tube placement. at 1225 Reported and signed by: Hansa Block M.D. CC: Radha Ward MD; Los Crawford DO; Sarbjit Mcarthur MD; Gianna LIZARRAGA Technologist:RT Jalyn(R)(CT) CTDI: DLP: Trnscb Date/Time: 07/14/2022 (122) [email or web address] Orig Print D/T: S: 07/14/2022 (0524) PAGE 2 Signed Report- XR CHEST 1 [id number] 00:00:00 [facility] : 1940 Sex: M FAX: Radha Ward MD [phone] [place]: St: [facility] FAX: Los Crawford [phone] FAX: Ana Toribio [phone] FAX: Sarbjit Sherman [phone] Name: SHERRI ARCE [facility] [place] : 1940 Age/S: 81/M [address] [place] [address] Unit #: [id number] Loc: G.[address] [place] [address] Phys: Rosalind Puentes NP Acct: [id number] Dis Date: Status: ADM IN PHONE #: [phone] Exam Date: 07/14/2022626 FAX #:[phone] Reason: Cardiac Surgery Post Op EXAMS: CPT CODE: [id number] XR CHEST 1 V 27632 PROCEDURE INFORMATION: Exam: XR Chest Exam date and time: 07/14/2022 6:26 AM Age: 81 years old Clinical indication: Other: Cardiac surgery post op TECHNIQUE: Imaging protocol: Radiologic exam of the chest. Views:1 view. COMPARISON: CR XR CHEST 1V 07/13/2022 6:51 AM FINDINGS: Tubes, catheters and devices: Left chest tube in place. Lungs: Persistent bibasilar airspace disease. Pleural spaces: Moderate left apical pneumothorax , similar to prior radiograph. Unchanged small bilateral pleural effusions. Heart/Mediastinum: Unchanged prominence of the cardiomediastinal silhouette. Bones/joints: Median sternotomy changes. IMPRESSION: 1. Moderate left apical pneumothorax, similar to prior radiograph. Left chest tube in place. 2. Unchanged small bilateral pleural effusions with bibasilar airspace disease. at 0915 Reported and signed by: Sheldon Kenney M.D. CC: Radha Ward MD; Los Crawford DO; Rosalind Toribio NP; Sarbjit Mcarthur MD Technologist: Elton Pradhan Trnscrd Date/Time/By: 07/14/2022 (914) : By: [email or web address] Orig Print D/T: S: 07/14/2022 (914) PAGE 1 Signed ReportPO ARTERIAL BLOOD GAS 2022-07-13 10:47:00 Test Item Value Reference Range Interpretation Comments POC ARTERIAL BLOOD GAS PH (test 7.388 7.35-7.45 N code = POCPHA) POC ARTERIAL BLOOD GAS PCO2 (test 31.6 mmHg 35.0-45 L code = [id number]) POC TCO2 ARTERIAL (test code = 20.0 POCTCO2) POC ARTERIAL BLOOD GAS PO2 (test 80.5 mmHg 80-100.0 N code = MAQCY2E) POC HCO3 ARTERIAL (test code = 19.0 MMOL/L 22.0-26.0 L BUFUMB1L) POC BASE EXCESS (test code = -5.9 MMOL/L -4.0-4.0 L POCBEA) POC O2 SATURATION (test code = 95.9 % 90-100 N POCO2S) ABG DELIVERY (test code = JH) Room Air BASIC METABOLIC [id number] 10:47:00 Test Item Value Reference Range Interpretation Comments SODIUM (test code = NA/ABG) 134 mmol/L 134-147 N POTASSIUM (test code = K/ABG) 4.4 mmol/L 3.4-5.0 N CHLORIDE (test code = CL/ABG) 104 mmol/L 100-108 N CREATININE ABG (test code = 4.4 mg/dL 0.8-1.3 H CREAABG) POC IONIZED CALCIUM (test code = 1.11 MMOL/L 1.12-1.32 L POCCA) POC GLUCOSE (test code = POCGLU) 137 MG/DL 70-110 H HEMOGLOBIN [id number] 10:47:00 Test Item Value Reference Range Interpretation Comments HEMOGLOBIN ABG (test code = HGB/ABG) 9.0 G/DL 12.5-16.9 L [id number] 10:47:00 Test Item Value Reference Range Interpretation Comments HEMATOCRIT (test code = HCT/ABG) 26 % 37.5-50.7 L POC LACTIC [id number] 10:47:00 Test Item Value Reference Range Interpretation Comments POC LACTIC ACID (test code = 1.8 mmol/l 0.9-1.7 H POCLAC) POC ARTERIAL BLOOD [id number] 03:26:00 Test Item Value Reference Range Interpretation Comments POC ARTERIAL BLOOD GAS PH (test 7.415 7.35-7.45 N code = POCPHA) POC ARTERIAL BLOOD GAS PCO2 35.4 mmHg 35.0-45 N (test code = JWANXQ4R) POC TCO2 ARTERIAL (test code = 23.8 POCTCO2) POC ARTERIAL BLOOD GAS PO2 (test 68.5 mmHg 80-100.0 L code = ULWTD2I) POC HCO3 ARTERIAL (test code = 22.7 MMOL/L 22.0-26.0 N APLONA6W) POC BASE EXCESS (test code = -1.9 MMOL/L -4.0-4.0 N POCBEA) POC O2 SATURATION (test code = 93.8 % 90-100 N POCO2S) FIO2 (test code = FIO2A) 32 % PaO2/FiO2 (test code = [id number]) 214.06 mm/Hg ABG DELIVERY (test code = JH) Cannula ABG SITE (test code = SITEA) Art Line BASIC METABOLIC [id number] 03:26:00 Test Item Value Reference Range Interpretation Comments SODIUM (test code = NA/ABG) 132 mmol/L 134-147 L POTASSIUM (test code = K/ABG) 4.7 mmol/L 3.4-5.0 N CHLORIDE (test code = CL/ABG) 100 mmol/L 100-108 N CREATININE ABG (test code = 4.0 mg/dL 0.8-1.3 H CREAABG) POC IONIZED CALCIUM (test code = 1.13 MMOL/L 1.12-1.32 N POCCA) POC GLUCOSE (test code = POCGLU) 84 MG/DL 70-110 N HEMOGLOBIN [id number] 03:26:00 Test Item Value Reference Range Interpretation Comments HEMOGLOBIN ABG (test code = HGB/ABG) 7.9 G/DL 12.5-16.9 L [id number] 03:26:00 Test Item Value Reference Range Interpretation Comments HEMATOCRIT (test code = HCT/ABG) 23 % 37.5-50.7 L POC LACTIC [id number] 03:26:00 Test Item Value Reference Range Interpretation Comments POC LACTIC ACID (test code = 0.6 mmol/l 0.9-1.7 L POCLAC) BASIC METABOLIC [id number] 03:25:00 Test Item Value Reference Range Interpretation Comments SODIUM (test code = 134 mEq/L 134-147 N NA) POTASSIUM (test code 4.7 mEq/L 3.4-5.0 = K) CHLORIDE (test code 102 mEq/L 100-108 N = CL) CARBON DIOXIDE (test 25 mEq/l 21-33 N code = CO2) ANION GAP (test code 12 0-20 N = GAP) GLUCOSE (test code = 87 mg/dL 70-110 N GLU) BLOOD UREA NITROGEN 49 mg/dL 7-18 H (test code = BUN) GLOMERULAR 15.0 70-80 L The Glomerular FILTRATION RATE Filtration R ate is a (test code = GFR) calculated parameterbased on serum Creatinine, pat ient age and sex. GFR va luesless than 60 mL/min/ 1.73 square meters a re indicative ofCh ronic Kidney Disease. Values less than 15 mL/min/1.73squa re meters indicate Kidney failure. The calculation forGFR is based on the CKD-EPI (2020) calculat ion. This formulais race indifferent and is the recommended for lucretia for GFRby the [facility] on for Adults.The GFR will not calculate if th e sex is unknown or if thepatient's ag e is <18 years. CREATININE (test 3.9 mg/dL 0.6-1.3 H code = CREAT) CALCIUM (test code = 8.0 mg/dL 8.0-10.5 N CA) [id number] 03:25:00 Test Item Value Reference Range Interpretation Comments MAGNESIUM (test code = MAG) 2.29 mg/dL 1.80-2.40 N CBC W/AUTO [id number] 03:12:00 Test Item Value Reference Range Interpretation Comments WHITE BLOOD CELL (test code = 13.2 x10 3/uL 4.5-11.0 H WBC) RED BLOOD CELL (test code = 2.61 x10 6/uL 4.00-5.60 L RBC) HEMOGLOBIN (test code = HGB) 7.8 g/dL 12.5-16.9 L HEMATOCRIT (test code = HCT) 24.2 % 37.5-50.7 L MEAN CELL VOLUME (test code = 92.7 fL 81.0-99.0 N MCV) MEAN CELL HGB (test code = 29.9 pg 27.0-33.0 N MCH) MEAN CELL HGB CONCETRATION 32.2 g/dL 33.0-37.0 L (test code = MCHC) RED CELL DISTRIBUTION WIDTH CV 16.5 % 11.5-14.5 H (test code = RDW) RED CELL DISTRIBUTION WIDTH SD 56.2 fL 37.0-54.0 H (test code = RDW-SD) PLATELET COUNT (test code = 160 x10 3/uL 150-400 N PLT) MEAN PLATELET VOLUME (test 10.9 fL 7.0-9.0 H code = MPV) NEUTROPHIL % (test code = NT%) 76.0 % 56.0-77.0 N IMMATURE GRANULOCYTE % (test 1.3 % 0.0-2.0 N code = IG%) LYMPHOCYTE % (test code = LY%) 7.0 % 14.0-32.0 L MONOCYTE % (test code = MO%) 8.8 % 4.8-9.0 N EOSINOPHIL % (test code = EO%) 6.4 % 0.3-3.7 H BASOPHIL % (test code = BA%) 0.5 % 0.0-2.0 N NUCLEATED RBC % (test code = 0.0 % 0-0 N NRBC%) NEUTROPHIL # (test code = NT#) 10.04 x10 3/uL 2.0-7.6 H IMMATURE GRANULOCYTE # (test 0.17 x10 3/uL 0.00-0.03 H code = IG#) LYMPHOCYTE # (test code = LY#) 0.93 x10 3/uL 1.0-3.8 L MONOCYTE # (test code = MO#) 1.17 x10 3/uL 0.1-0.8 H EOSINOPHIL # (test code = EO#) 0.85 x10 3/uL 0.0-0.2 H BASOPHIL # (test code = BA#) 0.07 x10 3/uL 0.0-0.2 N NUCLEATED RBC # (test code = 0.00 x10 3/uL 0.0-0.1 N NRBC#) MANUAL DIFF REQUIRED (test NO code = MDIFF) - XR CHEST 1 [id number] 00:00:00 [facility] LILYName: SHERRI ARCE : 1940 Sex: M FAX: Radha Ward MD [phone] [place]: St: ADM FAX: Los Crawford [phone] FAX: Ana Toribio [phone] FAX: Sarbjit Sherman [phone] Name: SHERRI ARCE [facility] [place] : 1940 Age/S: 81/M [address] [place] [address] Unit #: [id number] Loc: [address] [place] [address] Phys: Rosalind Puentes [employer]AD[employer] Acct: [id number] Dis Date: Status: ADM IN PHONE #: [phone] Exam Date: 07/13/2022 0652 FAX#: [phone] Reason: Cardiac Surgery Post Op Report Has Been Amended EXAMS: CPT CODE: [id number] XR CHEST 1 V 49743 Addendum - 07/13/2022 SIGNED 07/13/2022 ADDENDUM: [id number] RAD/CXR1 This isan addendum to the previously dictated report to document communication. Findings were discussed with Nurse Espinal at 07/13/2022 9:18 AM MEDICAL INVESTIGATOR. at 0919 Reported and signed by: Delmer Palma M.D. Report PROCEDURE INFORMATION: Exam: XR Chest Exam date and time: 07/13/2022 6:51 AM Age: 81 years old Clinical indication: Pain; Other: Cardiac surgery post op TECHNIQUE: Imaging protocol: Radiologic exam of the chest. Views: 1 view. COMPARISON: CR XR CHEST 1V 07/12/2022 5:48 AM FINDINGS: Tubes, catheters and devices: Right neck vascular sheath. Left mediastinal/chest tube. Lungs: Bilateral lung opacities have not significantly changed when allowing for changes in technique. Pleural spaces: Left apical pneumothorax measuring approximately 4 cm, approximately 30%. Questionable bilateral pleural effusions. 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 Bones/joints: Stable. IMPRESSION: Left apical pneumothorax measuring approximately 4 cm, approximately 30%. Otherwise, no significant change. PAGE 1 Signed Report (CONTINUED) FAX: Rahda Ward MD [phone] [place]: St: [facility] FAX: Los Crawford [phone] FAX: Ana Toribio [phone] FAX: Sarbjit Sherman [phone] Name: SHERRI ARCE [facility] : 1940 Age/S: 81/M [address] [place] [address] Unit #: [id number] Loc: G.[address] [place] [address] Phys: Rosalind Puentes [employer] Acct: [id number] Dis Date: Status: ADM IN PHONE #: [phone] Exam Date: 07/13/2022 0652 FAX #: [phone] Reason: Cardiac Surgery Post Op Report Has Been Amended EXAMS: CPT CODE: [id number] XR CHEST 1 V 03143 (Continued) at 0915 Reported and signed by: Delmer Palma M.D. CC: Radha Ward MD; Los Crawford DO; Rosalind Toribio RAW SILK GRADER; Sarbjit Mcarthur MD Technologist: Isidro Jarquin; Elaina Reeves, RT(R) Trnscrd Date/Time/By: 07/13/2022 (914) : By: [email or web address] Orig Print D/T: S: 07/13/2022 (914) PAGE 2 Signed Report- US RETRO [id number] 00:00:00 [facility] : 1940 Sex: M Name: SHERRI ARCE [facility] : 1940 Age/S: 81 / M [address] [place] [address] Unit #: [id number] Loc: [place] [address] Phys: Evelina Plaza MD Acct: [id number] Dis Date: Status: ADM IN PHONE #: [phone] Exam Date: 07/12/2022 1624 FAX #: [phone] Reason: hydronephrosis EXAMS: CPT CODE: [id number] US RETRO LTD 12160 PROCEDURE INFORMATION: Exam: US Retroperitoneal Limited. Exam date and time: 07/12/2022 4:03 PM Age: 81 years old Clinical indication: Condition or disease; Kidney or ureter condition; Hydronephrosis TECHNIQUE: Imaging protocol: Real-time ultrasound of the retroperitoneum with image documentation. COMPARISON: US RETRPERITONEAL COM 07/03/2022 11:22 AM FINDINGS: Right kidney: Mildly echogenic renal cortex. No stones. No hydronephrosis. Measures 10.5 cm in length. Left kidney: Mildly echogenic renal cortex. No stones. Moderate hydronephrosis. Measures 12.6 cm in length. Urinarybladder: Decompressed around a Waters catheter. IMPRESSION: Moderate left hydronephrosis, appears slightly improved compared to prior exam. Findings suggestive of medical renal disease. at 0651 Reported and signed by: Delmer Palma M.D. CC: Evelina Plaza MD; Radha Ward MD; Los Crawford DO Technologist: Ailin Hernadez RDMS(Bud)()Trnscb Date/Time: 07/13/2022 (0651) Humberto.[email or web address] PAGE 1 Signed ReportBASIC METABOLIC [id number] 12:25:00 Test Item Value Reference Range Interpretation Comments SODIUM (test code = 137 mEq/L 134-147 N NA) POTASSIUM (test code 3.4 mEq/L 3.4-5.0 = K) CHLORIDE (test code 102 mEq/L 100-108 N = CL) CARBON DIOXIDE (test 29 mEq/l 21-33 code = CO2) ANION GAP (test code 9 0-20 N = GAP) GLUCOSE (test code = 104 mg/dL 70-110 N GLU) BLOOD UREA NITROGEN 22 mg/dL 7-18 H (test code = BUN) GLOMERULAR 31.4 70-80 L The Glomerular FILTRATION RATE Filtration R ate is a (test code = GFR) calculated parameterbased on serum Creatinine, pat ient age and sex. GFR va luesless than 60 mL/min/ 1.73 square meters a re indicative ofCh ronic Kidney Disease. Values less than 15 mL/min/1.73squa re meters indicate Kidney failure. The calculation forGFR is based on the CKD-EPI (2020) calculat ion. This formulais race indifferent and is the recommended for lucretia for GFRby the Natio nal Kidney Foundati on for Adults.The GFR will not calculate if th e sex is unknown or if thepatient's ag e is <18 years. CREATININE (test 2.1 mg/dL 0.6-1.3 H code = CREAT) CALCIUM (test code = 8.2 mg/dL 8.0-10.5 N CA) [id number] 12:25:00 Test Item Value Reference Range Interpretation Comments MAGNESIUM (test code = MAG) 2.03 mg/dL 1.80-2.40 CALCIUM [id number] 12:25:00 Test Item Value Reference Range Interpretation Comments CALCIUM IONIZED (test code = FABIAN) 1.12 MMOL/L 1.09-1.30 N CBC W/AUTO [id number] 12:07:00 Test Item Value Reference Range Interpretation Comments WHITE BLOOD CELL (test code = 16.3 x10 3/uL 4.5-11.0 H WBC) RED BLOOD CELL (test code = 2.72 x10 6/uL 4.00-5.60 L RBC) HEMOGLOBIN (test code = HGB) 8.3 g/dL 12.5-16.9 L HEMATOCRIT (test code = HCT) 25.5 % 37.5-50.7 L MEAN CELL VOLUME (test code = 93.8 fL 81.0-99.0 N MCV) MEAN CELL HGB (test code = 30.5 pg 27.0-33.0 N MCH) MEAN CELL HGB CONCETRATION 32.5 g/dL 33.0-37.0 L (test code = MCHC) RED CELL DISTRIBUTION WIDTH CV 17.0 % 11.5-14.5 H (test code = RDW) RED CELL DISTRIBUTION WIDTH SD 58.1 fL 37.0-54.0 H (test code = RDW-SD) PLATELET COUNT (test code = 134 x10 3/uL 150-400 L PLT) MEAN PLATELET VOLUME (test 11.5 fL 7.0-9.0 H code = MPV) NEUTROPHIL % (test code = NT%) 85.0 % 56.0-77.0 H IMMATURE GRANULOCYTE % (test 1.3 % 0.0-2.0 N code = IG%) LYMPHOCYTE % (test code = LY%) 3.6 % 14.0-32.0 L MONOCYTE % (test code = MO%) 5.3 % 4.8-9.0 N EOSINOPHIL % (test code = EO%) 4.4 % 0.3-3.7 H BASOPHIL % (test code = BA%) 0.4 % 0.0-2.0 N NUCLEATED RBC % (test code = 0.0 % 0-0 N NRBC%) NEUTROPHIL # (test code = NT#) 13.83 x10 3/uL 2.0-7.6 H IMMATURE GRANULOCYTE # (test 0.21 x10 3/uL 0.00-0.03 H code = IG#) LYMPHOCYTE # (test code = LY#) 0.59 x10 3/uL 1.0-3.8 L MONOCYTE # (test code = MO#) 0.87 x10 3/uL 0.1-0.8 H EOSINOPHIL # (test code = EO#) 0.72 x10 3/uL 0.0-0.2 H BASOPHIL # (test code = BA#) 0.07 x10 3/uL 0.0-0.2 N NUCLEATED RBC # (test code = 0.00 x10 3/uL 0.0-0.1 N NRBC#) MANUAL DIFF REQUIRED (test NO code = MDIFF) BASIC METABOLIC [id number] 04:50:00 Test Item Value Reference Range Interpretation Comments SODIUM (test code = 132 mEq/L 134-147 L NA) POTASSIUM (test code 5.4 mEq/L 3.4-5.0 H = K) CHLORIDE (test code 101 mEq/L 100-108 N = CL) CARBON DIOXIDE (test 21 mEq/l 21-33 N code = CO2) ANION GAP (test code 15 0-20 N = GAP) GLUCOSE (test code = 118 mg/dL 70-110 H GLU) BLOOD UREA NITROGEN 47 mg/dL 7-18 H (test code = BUN) GLOMERULAR 13.3 70-80 L The Glomerular FILTRATION RATE Filtration R ate is a (test code = GFR) calculated parameterbased on serum Creatinine, pat ient age and sex. GFR va luesless than 60 mL/min/ 1.73 square meters a re indicative ofCh ronic Kidney Disease. Values less than 15 mL/min/1.73squa re meters indicate Kidney failure. The calculation forGFR is based on the CKD-EPI (2020) calculat ion. This formulais race indifferent and is the recommended for lucretia for GFRby the Natio nal Kidney Foundati on for Adults.The GFR will not calculate if th e sex is unknown or if thepatient's ag e is <18 years. CREATININE (test 4.3 mg/dL 0.6-1.3 H code = CREAT) CALCIUM (test code = 8.6 mg/dL 8.0-10.5 N CA) [id number] 04:50:00 Test Item Value Reference Range Interpretation Comments MAGNESIUM (test code = MAG) 2.69 mg/dL 1.80-2.40 H CBC W/AUTO [id number] 04:33:00 Test Item Value Reference Range Interpretation Comments WHITE BLOOD CELL (test code = 17.0 x10 3/uL 4.5-11.0 H WBC) RED BLOOD CELL (test code = 2.85 x10 6/uL 4.00-5.60 L RBC) HEMOGLOBIN (test code = HGB) 8.6 g/dL 12.5-16.9 L HEMATOCRIT (test code = HCT) 26.9 % 37.5-50.7 L MEAN CELL VOLUME (test code = 94.4 fL 81.0-99.0 N MCV) MEAN CELL HGB (test code = 30.2 pg 27.0-33.0 N MCH) MEAN CELL HGB CONCETRATION 32.0 g/dL 33.0-37.0 L (test code = MCHC) RED CELL DISTRIBUTION WIDTH CV 17.3 % 11.5-14.5 H (test code = RDW) RED CELL DISTRIBUTION WIDTH SD 60.4 fL 37.0-54.0 H (test code = RDW-SD) PLATELET COUNT (test code = 130 x10 3/uL 150-400 L PLT) MEAN PLATELET VOLUME (test 11.6 fL 7.0-9.0 H code = MPV) NEUTROPHIL % (test code = NT%) 83.2 % 56.0-77.0 H IMMATURE GRANULOCYTE % (test 0.9 % 0.0-2.0 N code = IG%) LYMPHOCYTE % (test code = LY%) 4.8 % 14.0-32.0 L MONOCYTE % (test code = MO%) 6.5 % 4.8-9.0 N EOSINOPHIL % (test code = EO%) 4.1 % 0.3-3.7 H BASOPHIL % (test code = BA%) 0.5 % 0.0-2.0 N NUCLEATED RBC % (test code = 0.0 % 0-0 N NRBC%) NEUTROPHIL # (test code = NT#) 14.13 x10 3/uL 2.0-7.6 H IMMATURE GRANULOCYTE # (test 0.15 x10 3/uL 0.00-0.03 H code = IG#) LYMPHOCYTE # (test code = LY#) 0.81 x10 3/uL 1.0-3.8 L MONOCYTE # (test code = MO#) 1.10 x10 3/uL 0.1-0.8 H EOSINOPHIL # (test code = EO#) 0.70 x10 3/uL 0.0-0.2 H BASOPHIL # (test code = BA#) 0.09 x10 3/uL 0.0-0.2 N NUCLEATED RBC # (test code = 0.00 x10 3/uL 0.0-0.1 N NRBC#) MANUAL DIFF REQUIRED (test NO code = MDIFF) POC ARTERIAL BLOOD [id number] 04:15:00 Test Item Value Reference Range Interpretation Comments POC ARTERIAL BLOOD GAS PH (test 7.371 7.35-7.45 N code = POCPHA) POC ARTERIAL BLOOD GAS PCO2 (test 34.5 mmHg 35.0-45 L code = SVHCXM0Z) POC TCO2 ARTERIAL (test code = 21.1 POCTCO2) POC ARTERIAL BLOOD GAS PO2 (test 58.5 mmHg 80-100.0 L code = LHHSY9R) POC HCO3 ARTERIAL (test code = 20.0 MMOL/L 22.0-26.0 L [id number]) POC BASE EXCESS (test code = -5.3 MMOL/L -4.0-4.0 L POCBEA) POC O2 SATURATION (test code = 89.5 % 90-100 L POCO2S) ABG DELIVERY (test code = JH) [facility] ABG SITE (test code = SITEA) Art Line BASIC METABOLIC [id number] 04:15:00 Test Item Value Reference Range Interpretation Comments SODIUM (test code = NA/ABG) 130 mmol/L 134-147 L POTASSIUM (test code = K/ABG) 5.4 mmol/L 3.4-5.0 H CHLORIDE (test code = CL/ABG) 100 mmol/L 100-108 N CREATININE ABG (test code = 4.5 mg/dL 0.8-1.3 H CREAABG) POC IONIZED CALCIUM (test code = 1.19 MMOL/L 1.12-1.32 N POCCA) POC GLUCOSE (test code = POCGLU) 130 MG/DL 70-110 H HEMOGLOBIN [id number] 04:15:00 Test Item Value Reference Range Interpretation Comments HEMOGLOBIN ABG (test code = HGB/ABG) 9.2 G/DL 12.5-16.9 L [id number] 04:15:00 Test Item Value Reference Range Interpretation Comments HEMATOCRIT (test code = HCT/ABG) 27 % 37.5-50.7 L POC LACTIC [id number] 04:15:00 Test Item Value Reference Range Interpretation Comments POC LACTIC ACID (test code = 0.6 mmol/l 0.9-1.7 L POCLAC) - XR CHEST 1 [id number] 00:00:00 [facility] : 1940 Sex: M FAX: Radha Ward MD [phone] [place]: St: [facility] FAX: [place] [phone] FAX: Ana Toribio [phone] Name: SHERRI ARCE [facility] : 1940 Age/S: 81/M [address] [place] [address] Unit #: [id number] Loc: [id number] [place] [address] Phys: Rosalind Puentes [employer] Acct: [id number] Dis Date: Status:ADM IN PHONE #: [phone] Exam Date: 07/12/2022706 FAX #: [phone] Reason: Cardiac Surgery Post Op EXAMS: CPT CODE: [id number] XR CHEST 1 V [id number] PROCEDURE INFORMATION: Exam: XR Chest Exam date and time: 07/12/2022 5:48 AM Age: 81 years old Clinical indication: Other: Cardiac surgery post op TECHNIQUE: Imaging protocol: Radiologic exam of the chest. Views: 1 view. COMPARISON: CR XR CHEST 1V 07/11/2022 5:08 AM FINDINGS: Tubes, catheters and devices: [place]-Al[place] catheter has been removed. Left chest tube is demonstrated. Lungs: [id number] bilateral perihilar and basilar interstitial lung opacities, suggesting pulmonary edema versus infiltrates. The peripheral lungs are otherwise clear. Bilateral pulmonary opacities are most prominent within the basilar lungs. Improvement of lung opacitiesis demonstrated. Pleural spaces: Small volume bilateral pleural effusions. No pneumothorax identified. Heart/Mediastinum: Cardiac silhouette appears moderate to severely enlarged. Bones/joints: Diffusel y decreased bone density. Moderate to severe generalized bony degenerative changes. Sternotomy wires, hardware is demonstrated. Soft tissues: Right neck sheath tip is positioned over the upper chest region. IMPRESSION: 1. Small bilateral pleural effusions. 2. Moderate to severe enlarged cardiac silhouette. 3. Honw-rr-cvfkmfrm pulmonary edema versus infiltrates. Improvement. at 0736 Reported and signed by: Manuel Vega M.D. CC: Radha Ward MD; Los Crawford DO; Rosalind Toribio NP Technologist: Isidro Jarquin; RT Dorcas(R) Trnscrd Date/Time/By: 07/12/2022 (0736) : By: [email or web address] Orig Print D/T: S: 07/12/2022 (0711) PAGE 1 Signed ReportBASIC METABOLIC PANEL 2022-07-11 23:16:00 Test Item Value Reference Range Interpretation Comments SODIUM (test code = 134 mEq/L 134-147 N NA) POTASSIUM (test code 5.1 mEq/L 3.4-5.0 H = K) CHLORIDE (test code 103 mEq/L 100-108 N = CL) CARBON DIOXIDE (test 21 mEq/l 21-33 N code = CO2) ANION GAP (test code 15 0-20 N = GAP) GLUCOSE (test code = 100 mg/dL 70-110 GLU) BLOOD UREA NITROGEN 38 mg/dL 7-18 H (test code = BUN) GLOMERULAR 15.0 70-80 L The Glomerular FILTRATION RATE Filtration R ate is a (test code = GFR) calculated parameterbased on serum Creatinine, pat ient age and sex. GFR va luesless than 60 mL/min/ 1.73 square meters a re indicative ofCh ronic Kidney Disease. Values less than 15 mL/min/1.73squa re meters indicate Kidney failure. The calculation forGFR is based on the CKD-EPI (2020) calculat ion. This formulais race indifferent and is the recommended for lucretia for GFRby the [facility] on for Adults.The GFR will not calculate if th e sex is unknown or if thepatient's ag e is <18 years. CREATININE (test 3.9 mg/dL 0.6-1.3 H code = CREAT) CALCIUM (test code = 8.6 mg/dL 8.0-10.5 N CA) CALCIUM [id number] 23:16:00 Test Item Value Reference Range Interpretation Comments CALCIUM IONIZED (test code = FABIAN) 1.09 MMOL/L 1.09-1.30 N HGB [id number] 22:43:00 Test Item Value Reference Range Interpretation Comments HEMOGLOBIN (test code = HGB) 8.1 g/dL 12.5-16.9 L HEMATOCRIT (test code = HCT) 25.4 % 37.5-50.7 L GLUCOSE [id number] 20:41:00 Test Item Value Reference Range Interpretation Comments GLUCOSE BEDSIDE (test 122 MG/DL 70-110 H Perfor med by certified code = GLUBED) 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 [facility] BASIC METABOLIC [id number] 16:09:00 Test Item Value Reference Range Interpretation Comments SODIUM (test code = 132 mEq/L 134-147 L NA) POTASSIUM (test code 5.3 mEq/L 3.4-5.0 H = K) CHLORIDE (test code 102 mEq/L 100-108 N = CL) CARBON DIOXIDE (test 22 mEq/l 21-33 N code = CO2) ANION GAP (test code 13 0-20 N = GAP) GLUCOSE (test code = 156 mg/dL 70-110 H GLU) BLOOD UREA NITROGEN 44 mg/dL 7-18 H (test code = BUN) GLOMERULAR 15.4 70-80 L The Glomerular FILTRATION RATE Filtration R ate is a (test code = GFR) calculated parameterbased on serum Creatinine, pat ient age and sex. GFR va luesless than 60 mL/min/ 1.73 square meters a re indicative ofCh ronic Kidney Disease. Values less than 15 mL/min/1.73squa re meters indicate Kidney failure. The calculation forGFR is based on the CKD-EPI (2020) calculat ion. This formulais race indifferent and is the recommended for lucretia for GFRby the [facility] for Adults.The GFR will not calculate if th e sex is unknown or if thepatient's ag e is <18 years. CREATININE (test 3.8 mg/dL 0.6-1.3 H code = CREAT) CALCIUM (test code = 8.9 mg/dL 8.0-10.5 N CA) [id number] 16:09:00 Test Item Value Reference Range Interpretation Comments PHOSPHOROUS (test code = PHOS) 3.9 MG/DL 2.5-4.9 N [id number] 16:09:00 Test Item Value Reference Range Interpretation Comments MAGNESIUM (test code = MAG) 2.72 mg/dL 1.80-2.40 H CALCIUM [id number] 16:09:00 Test Item Value Reference Range Interpretation Comments CALCIUM IONIZED (test code = FABIAN) 1.17 MMOL/L 1.09-1.30 N POC ARTERIAL BLOOD [id number] 15:54:00 Test Item Value Reference Range Interpretation Comments POC ARTERIAL BLOOD GAS PH (test 7.347 7.35-7.45 L code = POCPHA) POC ARTERIAL BLOOD GAS PCO2 (test 37.9 mmHg 35.0-45 N code = [id number]) POC TCO2 ARTERIAL (test code = 22.0 POCTCO2) POC ARTERIAL BLOOD GAS PO2 (test 80.5 mmHg 80-100.0 N code = QRBKD0K) POC HCO3 ARTERIAL (test code = 20.8 MMOL/L 22.0-26.0 L [id number]) POC BASE EXCESS (test code = -4.8 MMOL/L -4.0-4.0 L POCBEA) POC O2 SATURATION (test code = 95.2 % 90-100 N POCO2S) ABG DELIVERY (test code = JH) Cannula ABG TEMPERATURE (test code = 98.6 F TEMPA) ABG SITE (test code = SITEA) Art Line MARYLU'S TEST (test code = ALLENS) N/A BASIC METABOLIC [id number] 15:54:00 Test Item Value Reference Range Interpretation Comments SODIUM (test code = NA/ABG) 131 mmol/L 134-147 L POTASSIUM (test code = K/ABG) 5.5 mmol/L 3.4-5.0 H CHLORIDE (test code = CL/ABG) 102 mmol/L 100-108 N CREATININE ABG (test code = 3.8 mg/dL 0.8-1.3 H CREAABG) POC IONIZED CALCIUM (test code = 1.24 MMOL/L 1.12-1.32 N POCCA) POC GLUCOSE (test code = POCGLU) 159 MG/DL 70-110 H HEMOGLOBIN [id number] 15:54:00 Test Item Value Reference Range Interpretation Comments HEMOGLOBIN ABG (test code = HGB/ABG) 9.3 G/DL 12.5-16.9 L [id number] 15:54:00 Test Item Value Reference Range Interpretation Comments HEMATOCRIT (test code = HCT/ABG) 27 % 37.5-50.7 L POC LACTIC [id number] 15:54:00 Test Item Value Reference Range Interpretation Comments POC LACTIC ACID (test code = 1.1 mmol/l 0.9-1.7 N POCLAC) POC ARTERIAL BLOOD [id number] 09:52:00 Test Item Value Reference Range Interpretation Comments POC ARTERIAL BLOOD GAS PH (test 7.381 7.35-7.45 N code = POCPHA) POC ARTERIAL BLOOD GAS PCO2 (test 36.5 mmHg 35.0-45 N code = IFQOXM5Z) POC TCO2 ARTERIAL (test code = 22.8 POCTCO2) POC ARTERIAL BLOOD GAS PO2 (test 71.5 mmHg 80-100.0 L code = CJOFD1A) POC HCO3 ARTERIAL (test code = 21.7 MMOL/L 22.0-26.0 L [id number]) POC BASE EXCESS (test code = -3.4 MMOL/L -4.0-4.0 N POCBEA) POC O2 SATURATION (test code = 93.9 % 90-100 N POCO2S) ABG DELIVERY (test code = JH) Cannula ABG TEMPERATURE (test code = 98.8 F TEMPA) ABG SITE (test code = SITEA) Art Line MARYLU'S TEST (test code = ALLENS) N/A BASIC METABOLIC [id number] 09:52:00 Test Item Value Reference Range Interpretation Comments SODIUM (test code = NA/ABG) 133 mmol/L 134-147 L POTASSIUM (test code = K/ABG) 4.9 mmol/L 3.4-5.0 N CHLORIDE (test code = CL/ABG) 103 mmol/L 100-108 N CREATININE ABG (test code = 3.6 mg/dL 0.8-1.3 H CREAABG) POC IONIZED CALCIUM (test code = 1.25 MMOL/L 1.12-1.32 N POCCA) POC GLUCOSE (test code = POCGLU) 122 MG/DL 70-110 H HEMOGLOBIN [id number] 09:52:00 Test Item Value Reference Range Interpretation Comments HEMOGLOBIN ABG (test code = HGB/ABG) 9.2 G/DL 12.5-16.9 L [id number] 09:52:00 Test Item Value Reference Range Interpretation Comments HEMATOCRIT (test code = HCT/ABG) 27 % 37.5-50.7 L POC LACTIC [id number] 09:52:00 Test Item Value Reference Range Interpretation Comments POC LACTIC ACID (test code = 0.5 mmol/l 0.9-1.7 L POCLAC) GLUCOSE [id number] 07:55:00 Test Item Value Reference Range Interpretation Comments GLUCOSE BEDSIDE (test 117 MG/DL 70-110 H Perfor med by certified code = GLUBED) 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 [facility] BASIC METABOLIC [id number] 04:32:00 Test Item Value Reference Range Interpretation Comments SODIUM (test code = NA/ABG) 135 mmol/L 134-147 N POTASSIUM (test code = K/ABG) 4.7 mmol/L 3.4-5.0 N CHLORIDE (test code = CL/ABG) 105 mmol/L 100-108 N CREATININE ABG (test code = 3.6 mg/dL 0.8-1.3 H CREAABG) POC IONIZED CALCIUM (test code = 1.26 MMOL/L 1.12-1.32 N POCCA) POC GLUCOSE (test code = POCGLU) 102 MG/DL 70-110 N HEMOGLOBIN [id number] 04:32:00 Test Item Value Reference Range Interpretation Comments HEMOGLOBIN ABG (test code = 10.5 G/DL 12.5-16.9 L HGB/ABG) [id number] 04:32:00 Test Item Value Reference Range Interpretation Comments HEMATOCRIT (test code = HCT/ABG) 31 % 37.5-50.7 L POC LACTIC [id number] 04:32:00 Test Item Value Reference Range Interpretation Comments POC LACTIC ACID (test code = 0.4 mmol/l 0.9-1.7 L POCLAC) POC VENOUS BLOOD [id number] 04:32:00 Test Item Value Reference Range Interpretation Comments POC VENOUS BLOOD GAS PH (test 7.369 7.33-7.45 N code = POCPHV) POC VENOUS BLOOD GAS PCO2 (test 42.1 mmHg 43-47 L code = DBJNSG0Q) POC VENOUS BLOOD GAS PO2 (test 30.2 mmHG 10-50 N code = YUSJA7Z) POC TCO2 VENOUS (test code = 25.6 NLCOBU8K) POC HCO3 VENOUS (test code = 24.3 MMOL/L 22-27 N [id number]) POC BASE EXCESS VENOUS (test code -1.0 MMOL/L -4.0-4.0 N = POCBEV) POC O2 SATURATION VENOUS (test 55.6 % 60-80 L code = HDHX2XE) VENOUS BLOOD GAS DELIVERY (test HFNC code = DELV) VENOUS BLOOD GAS SITE (test code Fulton Ally = SITEV) [id number] 03:34:00 Test Item Value Reference Range Interpretation Comments MAGNESIUM (test code = MAG) 2.89 mg/dL 1.80-2.40 H BASIC METABOLIC [id number] 03:14:00 Test Item Value Reference Range Interpretation Comments SODIUM (test code = 136 mEq/L 134-147 N NA) POTASSIUM (test code 4.8 mEq/L 3.4-5.0 N = K) CHLORIDE (test code 103 mEq/L 100-108 N = CL) CARBON DIOXIDE (test 24 mEq/l 21-33 N code = CO2) ANION GAP (test code 14 0-20 N = GAP) GLUCOSE (test code = 103 mg/dL 70-110 GLU) BLOOD UREA NITROGEN 32 mg/dL 7-18 H (test code = BUN) GLOMERULAR 19.0 70-80 L The Glomerular FILTRATION RATE Filtration R ate is a (test code = GFR) calculated parameterbased on serum Creatinine, pat ient age and sex. GFR va luesless than 60 mL/min/ 1.73 square meters a re indicative ofCh ronic Kidney Disease. Values less than 15 mL/min/1.73squa re meters indicate Kidney failure. The calculation forGFR is based on the CKD-EPI (2020) calculat ion. This formulais race indifferent and is the recommended for lucretia for GFRby the [facility] for Adults.The GFR will not calculate if th e sex is unknown or if thepatient's ag e is <18 years. CREATININE (test 3.2 mg/dL 0.6-1.3 H code = CREAT) CALCIUM (test code = 9.0 mg/dL 8.0-10.5 N CA) COMMENTS: POD #1HEPATIC FUNCTION [id number] 03:14:00 Test Item Value Reference Range Interpretation Comments TOTAL PROTEIN (test code = PROT) 6.1 g/dL 6.4-8.2 L ALBUMIN (test code = ALB) 3.30 g/dL 3.4-5.0 L BILIRUBIN TOTAL (test code = 0.40 mg/dL 0.0-1.0 BILT) BILIRUBIN DIRECT (test code = 0.20 MG/DL 0.0-0.30 BILD) BILIRUBIN INDIRECT (test code = 0.20 MG/DL BILIND) SGOT/AST (test code = AST) 36 IUnit/L 15-37 N SGPT/ALT (test code = ALT) < 7 IUnit/L 30-65 L ALKALINE PHOSPHATASE TOTAL (test 105 IUnit/L 20-125 code = ALKP) COMMENTS: POD #1CBC W/AUTO [id number] 03:07:00 Test Item Value Reference Range Interpretation Comments WHITE BLOOD CELL (test code = 22.2 x10 3/uL 4.5-11.0 H WBC) RED BLOOD CELL (test code = 2.91 x10 6/uL 4.00-5.60 L RBC) HEMOGLOBIN (test code = HGB) 8.6 g/dL 12.5-16.9 L HEMATOCRIT (test code = HCT) 27.7 % 37.5-50.7 L MEAN CELL VOLUME (test code = 95.2 fL 81.0-99.0 N MCV) MEAN CELL HGB (test code = 29.6 pg 27.0-33.0 N MCH) MEAN CELL HGB CONCETRATION 31.0 g/dL 33.0-37.0 L (test code = MCHC) RED CELL DISTRIBUTION WIDTH CV 18.1 % 11.5-14.5 H (test code = RDW) RED CELL DISTRIBUTION WIDTH SD 62.5 fL 37.0-54.0 H (test code = RDW-SD) PLATELET COUNT (test code = 100 x10 3/uL 150-400 L PLT) IMMATURE PLATELET FRACTION 6.5 % 0.9-11.2 N (test code = IPF) MEAN PLATELET VOLUME (test 11.8 fL 7.0-9.0 H code = MPV) NEUTROPHIL % (test code = NT%) 86.3 % 56.0-77.0 H IMMATURE GRANULOCYTE % (test 0.9 % 0.0-2.0 N code = IG%) LYMPHOCYTE % (test code = LY%) 4.2 % 14.0-32.0 L MONOCYTE % (test code = MO%) 7.5 % 4.8-9.0 N EOSINOPHIL % (test code = EO%) 0.8 % 0.3-3.7 N BASOPHIL % (test code = BA%) 0.3 % 0.0-2.0 N NUCLEATED RBC % (test code = 0.0 % 0-0 N NRBC%) NEUTROPHIL # (test code = NT#) 19.22 x10 3/uL 2.0-7.6 H IMMATURE GRANULOCYTE # (test 0.19 x10 3/uL 0.00-0.03 H code = IG#) LYMPHOCYTE # (test code = LY#) 0.93 x10 3/uL 1.0-3.8 L MONOCYTE # (test code = MO#) 1.66 x10 3/uL 0.1-0.8 H EOSINOPHIL # (test code = EO#) 0.17 x10 3/uL 0.0-0.2 N BASOPHIL # (test code = BA#) 0.06 x10 3/uL 0.0-0.2 N NUCLEATED RBC # (test code = 0.00 x10 3/uL 0.0-0.1 N NRBC#) MANUAL DIFF REQUIRED (test NO code = MDIFF) POC ARTERIAL BLOOD [id number] 02:32:00 Test Item Value Reference Range Interpretation Comments POC ARTERIAL BLOOD GAS PH (test 7.375 7.35-7.45 N code = POCPHA) POC ARTERIAL BLOOD GAS PCO2 (test 40.6 mmHg 35.0-45 N code = JNFQEX3S) POC TCO2 ARTERIAL (test code = 25.0 POCTCO2) POC ARTERIAL BLOOD GAS PO2 (test 64.8 mmHg 80-100.0 L code = UFRCU8G) POC HCO3 ARTERIAL (test code = 23.8 MMOL/L 22.0-26.0 N [id number]) POC BASE EXCESS (test code = -1.4 MMOL/L -4.0-4.0 N POCBEA) POC O2 SATURATION (test code = 91.8 % 90-100 N POCO2S) ABG DELIVERY (test code = JH) [facility] ABG SITE (test code = SITEA) Art Line BASIC METABOLIC [id number] 02:32:00 Test Item Value Reference Range Interpretation Comments SODIUM (test code = NA/ABG) 135 mmol/L 134-147 N POTASSIUM (test code = K/ABG) 4.7 mmol/L 3.4-5.0 N CHLORIDE (test code = CL/ABG) 101 mmol/L 100-108 N CREATININE ABG (test code = 3.3 mg/dL 0.8-1.3 H CREAABG) POC IONIZED CALCIUM (test code = 1.26 MMOL/L 1.12-1.32 N POCCA) POC GLUCOSE (test code = POCGLU) 109 MG/DL 70-110 N HEMOGLOBIN [id number] 02:32:00 Test Item Value Reference Range Interpretation Comments HEMOGLOBIN ABG (test code = HGB/ABG) 9.3 G/DL 12.5-16.9 L [id number] 02:32:00 Test Item Value Reference Range Interpretation Comments HEMATOCRIT (test code = HCT/ABG) 27 % 37.5-50.7 L POC LACTIC [id number] 02:32:00 Test Item Value Reference Range Interpretation Comments POC LACTIC ACID (test code = 0.5 mmol/l 0.9-1.7 L POCLAC) - XR CHEST 1 [id number] 00:00:00 [facility] : 1940 Sex: M FAX: Radha Ward MD [phone] [place]: St: [facility] FAX: Los Crawford [phone] FAX: Ana Toribio [phone] Name: SHERRI ARCE [facility] : 1940 Age/S: 81/M [address] [place] [address] Unit #: [id number] Loc: [address] [place], [place] [id number] Phys: Rosalind Puentes [employer]ADER Acct: [id number] Dis Date: Status: ADM IN PHONE #: [phone] Exam Date: 07/11/2022 0554 FAX #: [phone] Reason: Cardiac Surgery Post Op EXAMS: CPT CODE: [id number] XR CHEST 1 V 36724 PROCEDURE INFORMATION: Exam: XR Chest Exam date and time: 07/11/2022 5:08 AM Age: 81 years old Clinical indication: Other: Cardiac surgery post op TECHNIQUE: Imaging protocol: Radiologic exam of the chest. Views: 1 view. COMPARISON: CR XR CHEST 1V 07/10/2022 5:24 AM FINDINGS: Tubes, catheters and devices: Fulton-Ally catheter is present and enters right neck sheath. The Fulton-Ally catheter tip overlies the expected pulmonary outflow tract region. Left chest tube is demonstrated. Lungs: Moderate to severe degree diffuse, bilateral perihilar and basilarinterstitial alveolar pulmonary edema versus infiltrates, pneumonia within the lungs. Progression ofright-sided lower lung opacities is demonstrated. Left-sided lung opacities appear stable. Pleural spaces: Small volume bilateral pleural effusions. No pneumothorax identified. Heart/Mediastinum: Cardiac silhouette appears moderately enlarged. Vasculature: Tortuous and ectatic aorta is demonstrated. Urwg-hs-tclsrnff atherosclerotic calcification demonstrated within the aorta. Bones/joints: Diffusely decreased bone density. Moderate to severe generalized bony degenerative changes. Sternotomy wires, hardware is demonstrated. Soft tissues: Limited visualization of the upper chest, secondary to overlying head position. This study is limited by patient's body habitus. IMPRESSION: 1. Moderate enlarged cardiac silhouette. 2. Small bilateral pleural effusions. 3. Moderate to severe pulmonary edema versusinfiltrates, pneumonia. Progression of opacities within right lower chest. 4. Degenerative and postsu rgical changes are demonstrated, as described above. PAGE 1 Signed Report (CONTINUED) FAX: Madhu Ward [phone] [place]: St: ADM FAX: [place] [phone] FAX: Ana Toribio [phone] Name: SHERRI AREC [facility] [place] : 1940 Age/S: 81/M [address] [place] [address] Unit #: [id number] Loc: [address] [address] Phys: Rosalind Puetnes [employer] Acct: [id number] Dis Date: Status: ADM IN PHONE #: [phone] Exam Date: 07/11/2022 05 FAX #: [phone] Reason: Cardiac Surgery Post Op EXAMS: CPT CODE: [id number] XR CHEST 1 V 57600 (Continued) at 8384 Reported and signed by: Manuel Vega M.D. CC: Radha Ward MD; [place] DO; Rosalind Toribio NP Technologist: RT Britta(R) Trnscrd Date/Time/By: 07/11/2022 (6781) : By: [email or web address] Orig Print D/T: S: 07/11/2022 (7824) PAGE 2 Signed ReportBASIC METABOLIC PANEL 2022-07-10 21:21:00 Test Item Value Reference Range Interpretation Comments SODIUM (test code = 137 mEq/L 134-147 N NA) POTASSIUM (test code 4.7 mEq/L 3.4-5.0 N = K) CHLORIDE (test code 105 mEq/L 100-108 N = CL) CARBON DIOXIDE (test 23 mEq/l 21-33 N code = CO2) ANION GAP (test code 14 0-20 N = GAP) GLUCOSE (test code = 141 mg/dL 70-110 H GLU) BLOOD UREA NITROGEN 26 mg/dL 7-18 H (test code = BUN) GLOMERULAR 21.3 70-80 L The Glomerular FILTRATION RATE Filtration R ate is a (test code = GFR) calculated parameterbased on serum Creatinine, pat ient age and sex. GFR va luesless than 60 mL/min/ 1.73 square meters a re indicative ofCh ronic Kidney Disease. Values less than 15 mL/min/1.73squa re meters indicate Kidney failure. The calculation forGFR is based on the CKD-EPI (2020) calculat ion. This formulais race indifferent and is the recommended for lucretia for GFRby the [facility] on for Adults.The GFR will not calculate if th e sex is unknown or if thepatient's ag e is <18 years. 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 [facility] BASIC METABOLIC [id number] 15:12:00 Test Item Value Reference Range Interpretation Comments SODIUM (test code = 136 mEq/L 134-147 N NA) POTASSIUM (test code 4.8 mEq/L 3.4-5.0 N = K) CHLORIDE (test code 104 mEq/L 100-108 N = CL) CARBON DIOXIDE (test 25 mEq/l 21-33 N code = CO2) ANION GAP (test code 12 0-20 N = GAP) GLUCOSE (test code = 183 mg/dL 70-110 H GLU) BLOOD UREA NITROGEN 24 mg/dL 7-18 H (test code = BUN) GLOMERULAR 24.3 70-80 L The Glomerular FILTRATION RATE Filtration R ate is a (test code = GFR) calculated parameterbased on serum Creatinine, pat ient age and sex. GFR va luesless than 60 mL/min/ 1.73 square meters a re indicative ofCh ronic Kidney Disease. Values less than 15 mL/min/1.73squa re meters indicate Kidney failure. The calculation forGFR is based on the CKD-EPI (2020) calculat ion. This formulais race indifferent and is the recommended for lucretia for GFRby the [facility] on for Adults.The GFR will not calculate if th e sex is unknown or if thepatient's ag e is <18 years. CREATININE (test 2.6 mg/dL 0.6-1.3 H code = CREAT) CALCIUM (test code = 8.8 mg/dL 8.0-10.5 N CA) [id number] 15:12:00 Test Item Value Reference Range Interpretation Comments PHOSPHOROUS (test code = PHOS) 3.2 MG/DL 2.5-4.9 N [id number] 15:12:00 Test Item Value Reference Range Interpretation Comments MAGNESIUM (test code = MAG) 2.39 mg/dL 1.80-2.40 N CALCIUM [id number] 15:12:00 Test Item Value Reference Range Interpretation Comments CALCIUM IONIZED (test code = FABIAN) 1.19 MMOL/L 1.09-1.30 N CBC W/AUTO [id number] 15:00:00 Test Item Value Reference Range Interpretation Comments WHITE BLOOD CELL (test code = 24.7 x10 3/uL 4.5-11.0 H WBC) RED BLOOD CELL (test code = 2.45 x10 6/uL 4.00-5.60 L RBC) HEMOGLOBIN (test code = HGB) 7.5 g/dL 12.5-16.9 L HEMATOCRIT (test code = HCT) 23.6 % 37.5-50.7 L MEAN CELL VOLUME (test code = 96.3 fL 81.0-99.0 N MCV) MEAN CELL HGB (test code = 30.6 pg 27.0-33.0 N MCH) MEAN CELL HGB CONCETRATION 31.8 g/dL 33.0-37.0 L (test code = MCHC) RED CELL DISTRIBUTION WIDTH CV 18.0 % 11.5-14.5 H (test code = RDW) RED CELL DISTRIBUTION WIDTH SD 63.3 fL 37.0-54.0 H (test code = RDW-SD) PLATELET COUNT (test code = 91 x10 3/uL 150-400 L PLT) MEAN PLATELET VOLUME (test 12.0 fL 7.0-9.0 H code = MPV) NEUTROPHIL % (test code = NT%) 89.7 % 56.0-77.0 H IMMATURE GRANULOCYTE % (test 1.1 % 0.0-2.0 N code = IG%) LYMPHOCYTE % (test code = LY%) 3.2 % 14.0-32.0 L MONOCYTE % (test code = MO%) 5.4 % 4.8-9.0 N EOSINOPHIL % (test code = EO%) 0.4 % 0.3-3.7 N BASOPHIL % (test code = BA%) 0.2 % 0.0-2.0 N NUCLEATED RBC % (test code = 0.0 % 0-0 N NRBC%) NEUTROPHIL # (test code = NT#) 22.14 x10 3/uL 2.0-7.6 H IMMATURE GRANULOCYTE # (test 0.26 x10 3/uL 0.00-0.03 H code = IG#) LYMPHOCYTE # (test code = LY#) 0.79 x10 3/uL 1.0-3.8 L MONOCYTE # (test code = MO#) 1.32 x10 3/uL 0.1-0.8 H EOSINOPHIL # (test code = EO#) 0.09 x10 3/uL 0.0-0.2 N BASOPHIL # (test code = BA#) 0.06 x10 3/uL 0.0-0.2 N NUCLEATED RBC # (test code = 0.00 x10 3/uL 0.0-0.1 N NRBC#) MANUAL DIFF REQUIRED (test NO code = MDIFF) [id number] 14:54:00 Test Item Value Reference Range Interpretation Comments SURGICAL (test code = SR) -----RUN DATE: 07/10/22 [facility] - LAB PAGE 1 RUN TIME: 1454 Specimen Inquiry RUN USER: INTERFACE -----PATIENT: SHERRI ARCE LOC: [facility] U #: [id number] AGE/SX: 81/M ROOM: [facility] RE07/02/22REG DR: Radha Ward MD : 42 BED: 1 DIS: STATUS: ADM IN TLOC: ----- SPEC #: [id number] RECD: 07/09/22 STATUS: ASTRID LUIS #: [id number] AARON: 07/08/22- SUBM DR: Lina Schwarz MD ENTERED: 07/09/22-1153 SP TYPE: SURGICAL OTHR DR: Self Referred Liset Stack MD, Soubhi MD Burnette, Christopher A DO Chaugle, Abdul Hannan MD Raslan, Saleem MDORDERED: [id number], ANATOMIC SPEC COPIES TO: Self Referred Liset Stack MD [address] [place] [address] Evelina Plaza MD [address] [place] [address] [place] [address] [facility] [address] [place] [address] Lina Schwarz MD [address] [place] [address]. [address] [place] [address] Mario Briseno MD [address] [facility] [address] [place] [address] PROCEDURES: [id number] (07/10/22-1433) TISSUES: A. ATRIUM - LEFT ATRIAL APPENDAGE CONTINUED ON NEXT PAGE -----RUN DATE: 07/10/22 [facility] - LAB PAGE 2 RUN TIME: 1454 Specimen Inquiry RUN USER: INTERFACE -----SPEC #: [id number] PATIENT: SHERRI ARCE #[id number] (Continued) CLINICAL HISTORY SAME FINAL DIAGNOSIS Heart, left atrial appendage, wedge biopsy: Myocardium with ischemic change; serosalinflammation, consistent with pericarditis. GROSS DESCRIPTION Received in formalin labeled "left atrial appendage "is a wedge biopsy of heart, 3.4 x 0.2x 1.4 cm, sectioned and entirely submitted (A)-(B). Technical component performed at [facility],[address] [place] [address], [place] [address] Unless gross only, the diagnosis is based upon microscopic examination.Immunohistochemis try: This test was developed and its performance characteristicsdetermined by this laboratory. It has not been approved nor does it need approvalby the [place] FDA. Appropriate positive and negative controls are reviewed and judgedto be acceptable. This laboratory is certified under the Clinical Laboratory ImprovementAmendments (CLIA-88) as qualified to perform high complexity clinical laboratory testing. CLINICAL INFORMATION CAD -------- Signed SIGNATURE ON FILE Michelle Almonte 07/10/22 145 ----- END OF REPORT GLUCOSE [id number] 12:08:00 Test Item Value Reference Range Interpretation Comments GLUCOSE BEDSIDE (test 146 MG/DL 70-110 H [facility] med by certified code = GLUBED) 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 [facility] BASIC METABOLIC [id number] 10:44:00 Test Item Value Reference Range Interpretation Comments SODIUM (test code = 136 mEq/L 134-147 N NA) POTASSIUM (test code 4.9 mEq/L 3.4-5.0 N = K) CHLORIDE (test code 103 mEq/L 100-108 N = CL) CARBON DIOXIDE (test 26 mEq/l 21-33 N code = CO2) ANION GAP (test code 12 0-20 N = GAP) GLUCOSE (test code = 129 mg/dL 70-110 H GLU) BLOOD UREA NITROGEN 22 mg/dL 7-18 H (test code = BUN) GLOMERULAR 25.5 70-80 L The Glomerular FILTRATION RATE Filtration R ate is a (test code = GFR) calculated parameterbased on serum Creatinine, pat ient age and sex. GFR va luesless than 60 mL/min/ 1.73 square meters a re indicative ofCh ronic Kidney Disease. Values less than 15 mL/min/1.73squa re meters indicate Kidney failure. The calculation forGFR is based on the CKD-EPI (2020) calculat ion. This formulais race indifferent and is the recommended for lucretia for GFRby the [facility] on for Adults.The GFR will not calculate if th e sex is unknown or if thepatient's ag e is <18 years. CREATININE (test 2.5 mg/dL 0.6-1.3 H code = CREAT) CALCIUM (test code = 8.9 mg/dL 8.0-10.5 N CA) [id number] 10:44:00 Test Item Value Reference Range Interpretation Comments PHOSPHOROUS (test code = PHOS) 3.7 MG/DL 2.5-4.9 N [id number] 10:44:00 Test Item Value Reference Range Interpretation Comments MAGNESIUM (test code = MAG) 2.28 mg/dL 1.80-2.40 N CALCIUM [id number] 10:44:00 Test Item Value Reference Range Interpretation Comments CALCIUM IONIZED (test code = FABIAN) 1.21 MMOL/L 1.09-1.30 N GLUCOSE [id number] 10:23:00 Test Item Value Reference Range Interpretation Comments GLUCOSE BEDSIDE (test 111 MG/DL 70-110 H [facility] med by certified code = GLUBED) 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 [facility] POC ARTERIAL BLOOD [id number] 10:12:00 Test Item Value Reference Range Interpretation Comments POC ARTERIAL BLOOD GAS PH (test 7.385 7.35-7.45 N code = POCPHA) POC ARTERIAL BLOOD GAS PCO2 (test 46.4 mmHg 35.0-45 H code = OOOJXQ8S) POC TCO2 ARTERIAL (test code = 29.2 POCTCO2) POC ARTERIAL BLOOD GAS PO2 (test 89.1 mmHg 80-100.0 N code = UFFSH4I) POC HCO3 ARTERIAL (test code = 27.8 MMOL/L 22.0-26.0 H QQHMTF8I) POC BASE EXCESS (test code = 2.7 MMOL/L -4.0-4.0 N POCBEA) POC O2 SATURATION (test code = 96.7 % 90-100 N POCO2S) ABG DELIVERY (test code = JH) Cannula ABG TEMPERATURE (test code = 98.4 F TEMPA) ABG SITE (test code = SITEA) Art Line MARYLU'S TEST (test code = ALLENS) N/A BASIC METABOLIC [id number] 10:12:00 Test Item Value Reference Range Interpretation Comments SODIUM (test code = NA/ABG) 136 mmol/L 134-147 N POTASSIUM (test code = K/ABG) 4.8 mmol/L 3.4-5.0 N CHLORIDE (test code = CL/ABG) 102 mmol/L 100-108 N CREATININE ABG (test code = 2.4 mg/dL 0.8-1.3 H CREAABG) POC IONIZED CALCIUM (test code = 1.36 MMOL/L 1.12-1.32 H POCCA) POC GLUCOSE (test code = POCGLU) 139 MG/DL 70-110 H HEMOGLOBIN [id number] 10:12:00 Test Item Value Reference Range Interpretation Comments HEMOGLOBIN ABG (test code = HGB/ABG) 8.0 G/DL 12.5-16.9 L [id number] 10:12:00 Test Item Value Reference Range Interpretation Comments HEMATOCRIT (test code = HCT/ABG) 24 % 37.5-50.7 L POC LACTIC [id number] 10:12:00 Test Item Value Reference Range Interpretation Comments POC LACTIC ACID (test code = 1.3 mmol/l 0.9-1.7 N POCLAC) GLUCOSE [id number] 06:10:00 Test Item Value Reference Range Interpretation Comments GLUCOSE BEDSIDE (test 146 MG/DL 70-110 H [facility] med by certified code = GLUBED) 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 [facility] GLUCOSE [id number] 05:27:00 Test Item Value Reference Range Interpretation Comments GLUCOSE BEDSIDE (test 129 MG/DL 70-110 H Perfor med by certified code = GLUBED) 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 [facility] BASIC METABOLIC [id number] 04:28:00 Test Item Value Reference Range Interpretation Comments SODIUM (test code = 141 mEq/L 134-147 N NA) POTASSIUM (test code 4.8 mEq/L 3.4-5.0 N = K) CHLORIDE (test code 107 mEq/L 100-108 N = CL) CARBON DIOXIDE (test 25 mEq/l 21-33 N code = CO2) ANION GAP (test code 14 0-20 N = GAP) GLUCOSE (test code = 104 mg/dL 70-110 N GLU) BLOOD UREA NITROGEN 18 mg/dL 7-18 (test code = BUN) GLOMERULAR 25.5 70-80 L The Glomerular FILTRATION RATE Filtration R ate is a (test code = GFR) calculated parameterbased on serum Creatinine, pat ient age and sex. GFR va luesless than 60 mL/min/ 1.73 square meters a re indicative ofCh ronic Kidney Disease. Values less than 15 mL/min/1.73squa re meters indicate Kidney failure. The calculation forGFR is based on the CKD-EPI (2020) calculat ion. This formulais race indifferent and is the recommended for lucretia for GFRby the [facility] on for Adults.The GFR will not calculate if th e sex is unknown or if thepatient's ag e is <18 years. CREATININE (test 2.5 mg/dL 0.6-1.3 H code = CREAT) CALCIUM (test code = 9.1 mg/dL 8.0-10.5 N CA) COMMENTS: POD #1HEPATIC FUNCTION [id number] 04:28:00 Test Item Value Reference Range Interpretation Comments TOTAL PROTEIN (test code = PROT) 6.1 g/dL 6.4-8.2 L ALBUMIN (test code = ALB) 3.60 g/dL 3.4-5.0 N BILIRUBIN TOTAL (test code = 0.20 mg/dL 0.0-1.0 N BILT) BILIRUBIN DIRECT (test code = 0.10 MG/DL 0.0-0.30 N BILD) BILIRUBIN INDIRECT (test code = 0.10 MG/DL BILIND) SGOT/AST (test code = AST) 64 IUnit/L 15-37 H SGPT/ALT (test code = ALT) < 7 IUnit/L 30-65 L ALKALINE PHOSPHATASE TOTAL (test 54 IUnit/L 20-125 N code = ALKP) COMMENTS: POD #[id number] 04:28:00 Test Item Value Reference Range Interpretation Comments PHOSPHOROUS (test code = PHOS) 3.8 MG/DL 2.5-4.9 N COMMENTS: POD #[id number] 04:28:00 Test Item Value Reference Range Interpretation Comments MAGNESIUM (test code = MAG) 2.32 mg/dL 1.80-2.40 N COMMENTS: POD #1CALCIUM [id number] 04:28:00 Test Item Value Reference Range Interpretation Comments CALCIUM IONIZED (test code = FABIAN) 1.14 MMOL/L 1.09-1.30 N COMMENTS: POD #1CBC W/AUTO [id number] 03:50:00 Test Item Value Reference Range Interpretation Comments WHITE BLOOD CELL (test code = 23.5 x10 3/uL 4.5-11.0 H WBC) RED BLOOD CELL (test code = 2.66 x10 6/uL 4.00-5.60 L RBC) HEMOGLOBIN (test code = HGB) 8.1 g/dL 12.5-16.9 L HEMATOCRIT (test code = HCT) 25.5 % 37.5-50.7 L MEAN CELL VOLUME (test code = 95.9 fL 81.0-99.0 N MCV) MEAN CELL HGB (test code = 30.5 pg 27.0-33.0 N MCH) MEAN CELL HGB CONCETRATION 31.8 g/dL 33.0-37.0 L (test code = MCHC) RED CELL DISTRIBUTION WIDTH CV 18.2 % 11.5-14.5 H (test code = RDW) RED CELL DISTRIBUTION WIDTH SD 64.2 fL 37.0-54.0 H (test code = RDW-SD) PLATELET COUNT (test code = 88 x10 3/uL 150-400 L PLT) MEAN PLATELET VOLUME (test 12.1 fL 7.0-9.0 H code = MPV) NEUTROPHIL % (test code = NT%) 86.5 % 56.0-77.0 H IMMATURE GRANULOCYTE % (test 0.7 % 0.0-2.0 N code = IG%) LYMPHOCYTE % (test code = LY%) 3.6 % 14.0-32.0 L MONOCYTE % (test code = MO%) 8.3 % 4.8-9.0 N EOSINOPHIL % (test code = EO%) 0.5 % 0.3-3.7 N BASOPHIL % (test code = BA%) 0.4 % 0.0-2.0 N NUCLEATED RBC % (test code = 0.0 % 0-0 N NRBC%) NEUTROPHIL # (test code = NT#) 20.33 x10 3/uL 2.0-7.6 H IMMATURE GRANULOCYTE # (test 0.17 x10 3/uL 0.00-0.03 H code = IG#) LYMPHOCYTE # (test code = LY#) 0.84 x10 3/uL 1.0-3.8 L MONOCYTE # (test code = MO#) 1.95 x10 3/uL 0.1-0.8 H EOSINOPHIL # (test code = EO#) 0.12 x10 3/uL 0.0-0.2 N BASOPHIL # (test code = BA#) 0.10 x10 3/uL 0.0-0.2 N NUCLEATED RBC # (test code = 0.00 x10 3/uL 0.0-0.1 N NRBC#) MANUAL DIFF REQUIRED (test NO code = MDIFF) POC ARTERIAL BLOOD [id number] 03:36:00 Test Item Value Reference Range Interpretation Comments POC ARTERIAL BLOOD GAS PH (test 7.408 7.35-7.45 N code = POCPHA) POC ARTERIAL BLOOD GAS PCO2 (test 42.4 mmHg 35.0-45 N code = JNOONK0Z) POC TCO2 ARTERIAL (test code = 28.1 POCTCO2) POC ARTERIAL BLOOD GAS PO2 (test 62.6 mmHg 80-100.0 L code = LDKBO3G) POC HCO3 ARTERIAL (test code = 26.8 MMOL/L 22.0-26.0 H [id number]) POC BASE EXCESS (test code = 2.1 MMOL/L -4.0-4.0 N POCBEA) POC O2 SATURATION (test code = 91.7 % 90-100 N POCO2S) ABG DELIVERY (test code = JH) NC ABG SITE (test code = SITEA) Art Line BASIC METABOLIC [id number] 03:36:00 Test Item Value Reference Range Interpretation Comments SODIUM (test code = NA/ABG) 139 mmol/L 134-147 N POTASSIUM (test code = K/ABG) 4.6 mmol/L 3.4-5.0 N CHLORIDE (test code = CL/ABG) 104 mmol/L 100-108 N CREATININE ABG (test code = 2.6 mg/dL 0.8-1.3 H CREAABG) POC IONIZED CALCIUM (test code = 1.27 MMOL/L 1.12-1.32 N POCCA) POC GLUCOSE (test code = POCGLU) 111 MG/DL 70-110 H HEMOGLOBIN [id number] 03:36:00 Test Item Value Reference Range Interpretation Comments HEMOGLOBIN ABG (test code = HGB/ABG) 8.3 G/DL 12.5-16.9 L [id number] 03:36:00 Test Item Value Reference Range Interpretation Comments HEMATOCRIT (test code = HCT/ABG) 24 % 37.5-50.7 L POC LACTIC [id number] 03:36:00 Test Item Value Reference Range Interpretation Comments POC LACTIC ACID (test code = 0.7 mmol/l 0.9-1.7 L POCLAC) GLUCOSE [id number] 02:29:00 Test Item Value Reference Range Interpretation Comments GLUCOSE BEDSIDE (test 87 MG/DL 70-110 N [facility] med by certified code = GLUBED) 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 [facility] - XR CHEST 1 [id number] 00:00:00 [facility] : 1940 Sex: M FAX: Radha Ward MD [phone] [place]: St: [facility] FAX: [place] [phone] FAX: Ana Toribio [phone] Name: SHERRI ARCE [facility] [place] : 1940 Age/S: 81/M [address] [place] [address] Unit #: [id number] Loc: [address] [place] [address] Phys: Rosalind Puentes [employer]ADER Acct: [id number] Dis Date: Status: ADM IN PHONE #: [phone] Exam Date: 07/10/2022525 FAX #: [phone] Reason: Cardiac Surgery Post Op Report Has Been Amended EXAMS: CPT CODE: [id number] XR CHEST 1 V 97816 Addendum - 07/10/2022 SIGNED 07/10/2022 ADDENDUM: [id number] RAD/CXR1 Notes: Findings were discussed with Dr. Flannery at 07/10/2022 8:36 AM MEDICAL INVESTIGATOR. at 0837 Reported and signed by: Babak Ratliff M.D. Report PROCEDURE INFORMATION: Exam: XR Chest Exam date and time: 07/10/2022 5:24 AM Age: 81 years old Clinical indication: Other: Cardiac surgery post op TECHNIQUE: Imaging protocol: Radiologic exam of the chest. Views: 1 view. COMPARISON: 1. CR XR [id number] 07/09/2022 4:56 AM 2. CR XR CHEST 1V 07/08/2022 7:14 PM FINDINGS: Tubes, catheters and devices: Right IJ Fulton-Ally catheter tip at the level of pulmonary arterial bifurcation. Mediastinal and left thoracostomy drains in place. EKG and epicardial pacer leads overlie the chest. Lungs: Lung volumes are grossly stable. Indistinct opacities mid and lower lung zones similar in distribution. Retrocardiac opacity obscuring the hemidiaphragm is unchanged. Pleural spaces: Small left apical pneumothorax, separation approximately 1.6 cm not clearly evident on retrospective review of prior exams. Small pleural effusions are grossly stable. Heart/Mediastinum: Moderate prominence of the cardiomediastinal silhouette is stable. Bones/joints: Sternotomy wires are intact. IMPRESSION: 1. Small left apical pneumothorax, new from prior studies with PAGE 1 Signed Report (CONTINUED) FAX: Radha Ward MD [phone] [place]: St: ADM FAX: [place] [phone] FAX: Ana Toribio [phone] --------- Name: SHERRI ARCE [facility] : 1940 Age/S: 81/M [address] [place] [address] Unit #: [id number] Loc: [address] [address] Phys: Rosalind Toribio [employer] GRADER Acct: [id number] Dis Date: Status: ADM IN PHONE #: [phone] Exam Date: 07/10/2022525 FAX #: [phone] Reason: Cardiac Surgery Post Op Report Has Been Amended EXAMS: CPT CODE: [id number] XR CHEST 1 V 77305 (Continued) thoracostomy tube in place. 2. Stable pulmonary opacities likely combination of airspace disease and atelectasis. 3. Stable small pleural effusions. 4. Stable postoperative cardiomediastinal silhouette. at 0830 Reported and signed by: Babak Ratliff M.D. CC: Radha Ward MD; [place] DO; Rosalind Romeo NP Technologist: RT Adrian(Taniya) Trnscrd Date/Time/By: 07/10/2022 (0830) : By: Robert Orig Print D/T: S: 07/10/2022 (0831) PAGE 2 Signed ReportBASIC METABOLIC [id number] 23:54:00 Test Item Value Reference Range Interpretation Comments SODIUM (test code = NA/ABG) 139 mmol/L 134-147 N POTASSIUM (test code = K/ABG) 4.6 mmol/L 3.4-5.0 N CHLORIDE (test code = CL/ABG) 102 mmol/L 100-108 N CREATININE ABG (test code = 2.9 mg/dL 0.8-1.3 H CREAABG) POC IONIZED CALCIUM (test code = 1.22 MMOL/L 1.12-1.32 N POCCA) POC GLUCOSE (test code = POCGLU) 152 MG/DL 70-110 H HEMOGLOBIN [id number] 23:54:00 Test Item Value Reference Range Interpretation Comments HEMOGLOBIN ABG (test code = HGB/ABG) 8.1 G/DL 12.5-16.9 L [id number] 23:54:00 Test Item Value Reference Range Interpretation Comments HEMATOCRIT (test code = HCT/ABG) 24 % 37.5-50.7 L POC LACTIC [id number] 23:54:00 Test Item Value Reference Range Interpretation Comments POC LACTIC ACID (test code = 0.6 mmol/l 0.9-1.7 L POCLAC) POC VENOUS BLOOD [id number] 23:54:00 Test Item Value Reference Range Interpretation Comments POC VENOUS BLOOD GAS PH (test 7.361 7.33-7.45 N code = POCPHV) POC VENOUS BLOOD GAS PCO2 (test 46.8 mmHg 43-47 N code = CHGFLD8I) POC VENOUS BLOOD GAS PO2 (test 33.2 mmHG 10-50 N code = MYYBH9F) POC TCO2 VENOUS (test code = 27.9 HEXOPZ9E) POC HCO3 VENOUS (test code = 26.5 MMOL/L 22-27 N CAISIX5B) POC BASE EXCESS VENOUS (test code 1.1 MMOL/L -4.0-4.0 N = POCBEV) POC O2 SATURATION VENOUS (test 61.0 % 60-80 N code = ICWR1KA) VENOUS BLOOD GAS DELIVERY (test HFNC code = DELV) VENOUS BLOOD GAS SITE (test code [place] [facility] = SITEV) BASIC METABOLIC [id number] 22:13:00 Test Item Value Reference Range Interpretation Comments SODIUM (test code = 142 mEq/L 134-147 N NA) POTASSIUM (test code 5.0 mEq/L 3.4-5.0 N = K) CHLORIDE (test code 109 mEq/L 100-108 H = CL) CARBON DIOXIDE (test 26 mEq/l 21-33 N code = CO2) ANION GAP (test code 12 0-20 N = GAP) GLUCOSE (test code = 127 mg/dL 70-110 H GLU) BLOOD UREA NITROGEN 27 mg/dL 7-18 H (test code = BUN) GLOMERULAR 22.3 70-80 L The Glomerular FILTRATION RATE Filtration R ate is a (test code = GFR) calculated parameterbased on serum Creatinine, pat ient age and sex. GFR va luesless than 60 mL/min/ 1.73 square meters a re indicative ofCh ronic Kidney Disease. Values less than 15 mL/min/1.73squa re meters indicate Kidney failure. The calculation forGFR is based on the CKD-EPI (2020) calculat ion. This formulais race indifferent and is the recommended for lucretia for GFRby the Nat nal Kidney Foundati on for Adults.The GFR will not calculate if th e sex is unknown or if thepatient's ag e is <18 years. CREATININE (test 2.8 mg/dL 0.6-1.3 H code = CREAT) CALCIUM (test code = 7.9 mg/dL 8.0-10.5 L CA) [id number] 22:13:00 Test Item Value Reference Range Interpretation Comments PHOSPHOROUS (test code = PHOS) 4.1 MG/DL 2.5-4.9 N [id number] 22:13:00 Test Item Value Reference Range Interpretation Comments MAGNESIUM (test code = MAG) 2.25 mg/dL 1.80-2.40 N CALCIUM [id number] 22:13:00 Test Item Value Reference Range Interpretation Comments CALCIUM IONIZED (test code = FABIAN) 1.11 MMOL/L 1.09-1.30 N POC ARTERIAL BLOOD [id number] 21:34:00 Test Item Value Reference Range Interpretation Comments POC ARTERIAL BLOOD GAS PH (test 7.373 7.35-7.45 N code = POCPHA) POC ARTERIAL BLOOD GAS PCO2 (test 43.6 mmHg 35.0-45 N code = IEAPJI9L) POC TCO2 ARTERIAL (test code = 26.8 POCTCO2) POC ARTERIAL BLOOD GAS PO2 (test 69.7 mmHg 80-100.0 L code = CFFRR4U) POC HCO3 ARTERIAL (test code = 25.4 MMOL/L 22.0-26.0 N MAPYIR3D) POC BASE EXCESS (test code = 0.2 MMOL/L -4.0-4.0 N POCBEA) POC O2 SATURATION (test code = 93.2 % 90-100 N POCO2S) ABG DELIVERY (test code = JH) HFNC ABG SITE (test code = SITEA) Art Line BASIC METABOLIC [id number] 21:34:00 Test Item Value Reference Range Interpretation Comments SODIUM (test code = NA/ABG) 140 mmol/L 134-147 N POTASSIUM (test code = K/ABG) 4.8 mmol/L 3.4-5.0 N CHLORIDE (test code = CL/ABG) 105 mmol/L 100-108 N CREATININE ABG (test code = 3.0 mg/dL 0.8-1.3 H CREAABG) POC IONIZED CALCIUM (test code = 1.18 MMOL/L 1.12-1.32 N POCCA) POC GLUCOSE (test code = POCGLU) 132 MG/DL 70-110 H HEMOGLOBIN [id number] 21:34:00 Test Item Value Reference Range Interpretation Comments HEMOGLOBIN ABG (test code = HGB/ABG) 7.8 G/DL 12.5-16.9 L [id number] 21:34:00 Test Item Value Reference Range Interpretation Comments HEMATOCRIT (test code = HCT/ABG) 23 % 37.5-50.7 L POC LACTIC [id number] 21:34:00 Test Item Value Reference Range Interpretation Comments POC LACTIC ACID (test code = 0.8 mmol/l 0.9-1.7 L POCLAC) GLUCOSE [id number] 20:28:00 Test Item Value Reference Range Interpretation Comments GLUCOSE BEDSIDE (test 104 MG/DL 70-110 N Perfor med by certified code = GLUBED) 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 [facility] POC ARTERIAL BLOOD [id number] 18:43:00 Test Item Value Reference Range Interpretation Comments POC ARTERIAL BLOOD GAS PH (test 7.346 7.35-7.45 L code = POCPHA) POC ARTERIAL BLOOD GAS PCO2 (test 45.9 mmHg 35.0-45 H code = JEAIRV3J) POC TCO2 ARTERIAL (test code = 26.5 POCTCO2) POC ARTERIAL BLOOD GAS PO2 (test 50.5 mmHg 80-100.0 L code = GLYDX4V) POC HCO3 ARTERIAL (test code = 25.1 MMOL/L 22.0-26.0 N [id number]) POC BASE EXCESS (test code = -0.6 MMOL/L -4.0-4.0 N POCBEA) POC O2 SATURATION (test code = 83.1 % 90-100 L POCO2S) ABG DELIVERY (test code = JH) Room Air ABG SITE (test code = SITEA) R Radial BASIC METABOLIC [id number] 18:43:00 Test Item Value Reference Range Interpretation Comments SODIUM (test code = NA/ABG) 141 mmol/L 134-147 N POTASSIUM (test code = K/ABG) 4.6 mmol/L 3.4-5.0 N CHLORIDE (test code = CL/ABG) 106 mmol/L 100-108 N CREATININE ABG (test code = 3.2 mg/dL 0.8-1.3 H CREAABG) POC IONIZED CALCIUM (test code = 1.16 MMOL/L 1.12-1.32 N POCCA) POC GLUCOSE (test code = POCGLU) 115 MG/DL 70-110 H HEMOGLOBIN [id number] 18:43:00 Test Item Value Reference Range Interpretation Comments HEMOGLOBIN ABG (test code = HGB/ABG) 8.3 G/DL 12.5-16.9 L [id number] 18:43:00 Test Item Value Reference Range Interpretation Comments HEMATOCRIT (test code = HCT/ABG) 25 % 37.5-50.7 L POC LACTIC [id number] 18:43:00 Test Item Value Reference Range Interpretation Comments POC LACTIC ACID (test code = 1.1 mmol/l 0.9-1.7 N POCLAC) BASIC METABOLIC [id number] 16:20:00 Test Item Value Reference Range Interpretation Comments SODIUM (test code = 143 mEq/L 134-147 N NA) POTASSIUM (test code 4.8 mEq/L 3.4-5.0 N = K) CHLORIDE (test code 109 mEq/L 100-108 H = CL) CARBON DIOXIDE (test 26 mEq/l 21-33 N code = CO2) ANION GAP (test code 13 0-20 N = GAP) GLUCOSE (test code = 138 mg/dL 70-110 H GLU) BLOOD UREA NITROGEN 29 mg/dL 7-18 H (test code = BUN) GLOMERULAR 19.0 70-80 L The Glomerular FILTRATION RATE Filtration R ate is a (test code = GFR) calculated parameterbased on serum Creatinine, pat ient age and sex. GFR va luesless than 60 mL/min/ 1.73 square meters a re indicative ofCh ronic Kidney Disease. Values less than 15 mL/min/1.73squa re meters indicate Kidney failure. The calculation forGFR is based on the CKD-EPI (2020) calculat ion. This formulais race indifferent and is the recommended for lucretia for GFRby the [facility] for Adults.The GFR will not calculate if th e sex is unknown or if thepatient's ag e is <18 years. CREATININE (test 3.2 mg/dL 0.6-1.3 H code = CREAT) CALCIUM (test code = 8.7 mg/dL 8.0-10.5 N CA) [id number] 16:20:00 Test Item Value Reference Range Interpretation Comments MAGNESIUM (test code = MAG) 2.28 mg/dL 1.80-2.40 N CALCIUM [id number] 16:20:00 Test Item Value Reference Range Interpretation Comments CALCIUM IONIZED (test code = FABIAN) 1.16 MMOL/L 1.09-1.30 N CBC W/AUTO [id number] 16:10:00 Test Item Value Reference Range Interpretation Comments WHITE BLOOD CELL (test code = 20.9 x10 3/uL 4.5-11.0 H WBC) RED BLOOD CELL (test code = 2.60 x10 6/uL 4.00-5.60 L RBC) HEMOGLOBIN (test code = HGB) 7.9 g/dL 12.5-16.9 L HEMATOCRIT (test code = HCT) 25.0 % 37.5-50.7 L MEAN CELL VOLUME (test code = 96.2 fL 81.0-99.0 MCV) MEAN CELL HGB (test code = 30.4 pg 27.0-33.0 N MCH) MEAN CELL HGB CONCETRATION 31.6 g/dL 33.0-37.0 L (test code = MCHC) RED CELL DISTRIBUTION WIDTH CV 18.3 % 11.5-14.5 H (test code = RDW) RED CELL DISTRIBUTION WIDTH SD 63.5 fL 37.0-54.0 H (test code = RDW-SD) PLATELET COUNT (test code = 83 x10 3/uL 150-400 L PLT) MEAN PLATELET VOLUME (test 11.3 fL 7.0-9.0 H code = MPV) NEUTROPHIL % (test code = NT%) 87.1 % 56.0-77.0 H IMMATURE GRANULOCYTE % (test 0.8 % 0.0-2.0 N code = IG%) LYMPHOCYTE % (test code = LY%) 3.9 % 14.0-32.0 L MONOCYTE % (test code = MO%) 7.9 % 4.8-9.0 N EOSINOPHIL % (test code = EO%) 0.0 % 0.3-3.7 L BASOPHIL % (test code = BA%) 0.3 % 0.0-2.0 N NUCLEATED RBC % (test code = 0.0 % 0-0 N NRBC%) NEUTROPHIL # (test code = NT#) 18.20 x10 3/uL 2.0-7.6 H IMMATURE GRANULOCYTE # (test 0.16 x10 3/uL 0.00-0.03 H code = IG#) LYMPHOCYTE # (test code = LY#) 0.82 x10 3/uL 1.0-3.8 L MONOCYTE # (test code = MO#) 1.66 x10 3/uL 0.1-0.8 H EOSINOPHIL # (test code = EO#) 0.01 x10 3/uL 0.0-0.2 N BASOPHIL # (test code = BA#) 0.06 x10 3/uL 0.0-0.2 N NUCLEATED RBC # (test code = 0.00 x10 3/uL 0.0-0.1 N NRBC#) MANUAL DIFF REQUIRED (test NO code = MDIFF) BASIC METABOLIC [id number] 13:20:00 Test Item Value Reference Range Interpretation Comments SODIUM (test code = 145 mEq/L 134-147 N NA) POTASSIUM (test code 5.3 mEq/L 3.4-5.0 H = K) CHLORIDE (test code 111 mEq/L 100-108 H = CL) CARBON DIOXIDE (test 24 mEq/l 21-33 N code = CO2) ANION GAP (test code 15 0-20 N = GAP) GLUCOSE (test code = 178 mg/dL 70-110 H GLU) BLOOD UREA NITROGEN 36 mg/dL 7-18 H (test code = BUN) GLOMERULAR 15.0 70-80 L The Glomerular FILTRATION RATE Filtration R ate is a (test code = GFR) calculated parameterbased on serum Creatinine, pat ient age and sex. GFR va luesless than 60 mL/min/ 1.73 square meters a re indicative ofCh ronic Kidney Disease. Values less than 15 mL/min/1.73squa re meters indicate Kidney failure. The calculation forGFR is based on the CKD-EPI (2020) calculat ion. This formulais race indifferent and is the recommended for lucretia for GFRby the Natio nal Kidney Foundati on for Adults.The GFR will not calculate if th e sex is unknown or if thepatient's ag e is <18 years. CREATININE (test 3.9 mg/dL 0.6-1.3 H code = CREAT) CALCIUM (test code = 7.8 mg/dL 8.0-10.5 L CA) [id number] 13:20:00 Test Item Value Reference Range Interpretation Comments PHOSPHOROUS (test code = PHOS) 4.3 MG/DL 2.5-4.9 N [id number] 13:20:00 Test Item Value Reference Range Interpretation Comments MAGNESIUM (test code = MAG) 2.37 mg/dL 1.80-2.40 N CALCIUM [id number] 13:20:00 Test Item Value Reference Range Interpretation Comments CALCIUM IONIZED (test code = FABIAN) 1.08 MMOL/L 1.09-1.30 L GLUCOSE [id number] 12:56:00 Test Item Value Reference Range Interpretation Comments GLUCOSE BEDSIDE (test 162 MG/DL 70-110 H Perfor med by certified code = GLUBED) 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 [facility] POC ARTERIAL BLOOD [id number] 10:35:00 Test Item Value Reference Range Interpretation Comments POC ARTERIAL BLOOD GAS PH (test 7.351 7.35-7.45 N code = POCPHA) POC ARTERIAL BLOOD GAS PCO2 (test 45.1 mmHg 35.0-45 H code = TNATAS1R) POC TCO2 ARTERIAL (test code = 26.3 POCTCO2) POC ARTERIAL BLOOD GAS PO2 (test 73.8 mmHg 80-100.0 L code = KDSUJ7C) POC HCO3 ARTERIAL (test code = 25.0 MMOL/L 22.0-26.0 N [id number]) POC BASE EXCESS (test code = -0.6 MMOL/L -4.0-4.0 N POCBEA) POC O2 SATURATION (test code = 93.8 % 90-100 N POCO2S) ABG DELIVERY (test code = JH) Cannula ABG SITE (test code = SITEA) Art Line BASIC METABOLIC [id number] 10:35:00 Test Item Value Reference Range Interpretation Comments SODIUM (test code = NA/ABG) 144 mmol/L 134-147 N POTASSIUM (test code = K/ABG) 5.0 mmol/L 3.4-5.0 N CHLORIDE (test code = CL/ABG) 109 mmol/L 100-108 H CREATININE ABG (test code = 3.8 mg/dL 0.8-1.3 H CREAABG) POC IONIZED CALCIUM (test code = 1.16 MMOL/L 1.12-1.32 N POCCA) POC GLUCOSE (test code = POCGLU) 145 MG/DL 70-110 H HEMOGLOBIN [id number] 10:35:00 Test Item Value Reference Range Interpretation Comments HEMOGLOBIN ABG (test code = HGB/ABG) 7.3 G/DL 12.5-16.9 L [id number] 10:35:00 Test Item Value Reference Range Interpretation Comments HEMATOCRIT (test code = HCT/ABG) 21 % 37.5-50.7 L POC LACTIC [id number] 10:35:00 Test Item Value Reference Range Interpretation Comments POC LACTIC ACID (test code = 2.0 mmol/l 0.9-1.7 H POCLAC) GLUCOSE [id number] 08:55:00 Test Item Value Reference Range Interpretation Comments GLUCOSE BEDSIDE (test 154 MG/DL 70-110 H Perfor med by certified code = GLUBED) 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 [facility] GLUCOSE [id number] 07:51:00 Test Item Value Reference Range Interpretation Comments GLUCOSE BEDSIDE (test 178 MG/DL 70-110 H [facility] by certified code = GLUBED) 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 [facility] CBC W/AUTO [id number] 03:38:00 Test Item Value Reference Range Interpretation Comments WHITE BLOOD CELL (test code = 24.9 x10 3/uL 4.5-11.0 H WBC) RED BLOOD CELL (test code = 2.13 x10 6/uL 4.00-5.60 L RBC) HEMOGLOBIN (test code = HGB) 6.5 g/dL 12.5-16.9 L HEMATOCRIT (test code = HCT) 21.5 % 37.5-50.7 L MEAN CELL VOLUME (test code = 100.9 fL 81.0-99.0 H MCV) MEAN CELL HGB (test code = 30.5 pg 27.0-33.0 N MCH) MEAN CELL HGB CONCETRATION 30.2 g/dL 33.0-37.0 L (test code = MCHC) RED CELL DISTRIBUTION WIDTH CV 16.3 % 11.5-14.5 H (test code = RDW) RED CELL DISTRIBUTION WIDTH SD 60.5 fL 37.0-54.0 H (test code = RDW-SD) PLATELET COUNT (test code = 91 x10 3/uL 150-400 L PLT) MEAN PLATELET VOLUME (test 11.3 fL 7.0-9.0 H code = MPV) NEUTROPHIL % (test code = NT%) 90.8 % 56.0-77.0 H IMMATURE GRANULOCYTE % (test 1.2 % 0.0-2.0 N code = IG%) LYMPHOCYTE % (test code = LY%) 1.2 % 14.0-32.0 L MONOCYTE % (test code = MO%) 6.6 % 4.8-9.0 N EOSINOPHIL % (test code = EO%) 0.0 % 0.3-3.7 L BASOPHIL % (test code = BA%) 0.2 % 0.0-2.0 N NUCLEATED RBC % (test code = 0.0 % 0-0 N NRBC%) NEUTROPHIL # (test code = NT#) 22.60 x10 3/uL 2.0-7.6 H IMMATURE GRANULOCYTE # (test 0.29 x10 3/uL 0.00-0.03 H code = IG#) LYMPHOCYTE # (test code = LY#) 0.31 x10 3/uL 1.0-3.8 L MONOCYTE # (test code = MO#) 1.65 x10 3/uL 0.1-0.8 H EOSINOPHIL # (test code = EO#) 0.00 x10 3/uL 0.0-0.2 N BASOPHIL # (test code = BA#) 0.04 x10 3/uL 0.0-0.2 N NUCLEATED RBC # (test code = 0.00 x10 3/uL 0.0-0.1 N NRBC#) MANUAL DIFF REQUIRED (test NO code = MDIFF) PLT [id number] 03:38:00 Test Item Value Reference Range Interpretation Comments PLATELET ESTIMATE (test 92 TO 115 THOUSAND ADEQUATE code = PLTEST) PLATELET MORPHOLOGY (test LARGE PLATELETS code = PLTMORPH) BASIC METABOLIC [id number] 03:38:00 Test Item Value Reference Range Interpretation Comments SODIUM (test code = 149 mEq/L 134-147 H NA) POTASSIUM (test code 4.3 mEq/L 3.4-5.0 N = K) CHLORIDE (test code 111 mEq/L 100-108 H = CL) CARBON DIOXIDE (test 23 mEq/l 21-33 N code = CO2) ANION GAP (test code 20 0-20 N = GAP) GLUCOSE (test code = 241 mg/dL 70-110 H GLU) BLOOD UREA NITROGEN 38 mg/dL 7-18 H (test code = BUN) GLOMERULAR 12.3 70-80 L The Glomerular FILTRATION RATE Filtration R ate is a (test code = GFR) calculated parameterbased on serum Creatinine, pat ient age and sex. GFR va luesless than 60 mL/min/ 1.73 square meters a re indicative ofCh ronic Kidney Disease. Values less than 15 mL/min/1.73squa re meters indicate Kidney failure. The calculation forGFR is based on the CKD-EPI (2020) calculat ion. This formulais race indifferent and is the recommended for lucretia for GFRby the [facility] on for Adults.The GFR will not calculate if th e sex is unknown or if thepatient's ag e is <18 years. CREATININE (test 4.6 mg/dL 0.6-1.3 H code = CREAT) CALCIUM (test code = 8.9 mg/dL 8.0-10.5 N CA) COMMENTS: POD #1HEPATIC FUNCTION [id number] 03:38:00 Test Item Value Reference Range Interpretation Comments TOTAL PROTEIN (test code = PROT) 5.5 g/dL 6.4-8.2 L ALBUMIN (test code = ALB) 3.60 g/dL 3.4-5.0 N BILIRUBIN TOTAL (test code = BILT) 0.20 mg/dL 0.0-1.0 N BILIRUBIN DIRECT (test code = 0.10 MG/DL 0.0-0.30 N BILD) BILIRUBIN INDIRECT (test code = 0.10 MG/DL BILIND) SGOT/AST (test code = AST) 46 IUnit/L 15-37 H SGPT/ALT (test code = ALT) 15 IUnit/L 30-65 L ALKALINE PHOSPHATASE TOTAL (test 40 IUnit/L 20-125 code = ALKP) COMMENTS: POD #[id number] 03:38:00 Test Item Value Reference Range Interpretation Comments MAGNESIUM (test code = MAG) 2.45 mg/dL 1.80-2.40 H COMMENTS: POD #1BASIC METABOLIC [id number] 03:37:00 Test Item Value Reference Range Interpretation Comments SODIUM (test code = NA/ABG) 147 mmol/L 134-147 N POTASSIUM (test code = K/ABG) 4.1 mmol/L 3.4-5.0 N CHLORIDE (test code = CL/ABG) 112 mmol/L 100-108 H CREATININE ABG (test code = 4.4 mg/dL 0.8-1.3 H CREAABG) POC IONIZED CALCIUM (test code = 1.20 MMOL/L 1.12-1.32 N POCCA) POC GLUCOSE (test code = POCGLU) 229 MG/DL 70-110 H HEMOGLOBIN [id number] 03:37:00 Test Item Value Reference Range Interpretation Comments HEMOGLOBIN ABG (test code = HGB/ABG) 6.5 G/DL 12.5-16.9 L [id number] 03:37:00 Test Item Value Reference Range Interpretation Comments HEMATOCRIT (test code = HCT/ABG) 19 % 37.5-50.7 L POC LACTIC [id number] 03:37:00 Test Item Value Reference Range Interpretation Comments POC LACTIC ACID (test code = 5.9 mmol/l 0.9-1.7 HH POCLAC) POC VENOUS BLOOD [id number] 03:37:00 Test Item Value Reference Range Interpretation Comments MARYLU'S TEST (test code = ALLENS) N/A POC VENOUS BLOOD GAS PH (test 7.277 7.33-7.45 L code = POCPHV) POC VENOUS BLOOD GAS PCO2 (test 45.0 mmHg 43-47 N code = QVGEFY7W) POC VENOUS BLOOD GAS PO2 (test 35.4 mmHG 10-50 N code = VXQVB8A) POC TCO2 VENOUS (test code = 22.4 QVTPGP6U) POC HCO3 VENOUS (test code = 21.0 MMOL/L 22-27 L LARXNF2J) POC BASE EXCESS VENOUS (test code -5.8 MMOL/L -4.0-4.0 L = POCBEV) POC O2 SATURATION VENOUS (test 60.2 % 60-80 N code = QOHI9JF) VENOUS BLOOD GAS DELIVERY (test Cannula code = DELV) VENOUS BLOOD GAS TEMP (test code 98.6 F = TEMPV) VENOUS BLOOD GAS SITE (test code Colby Canales = SITEV) LACTIC [id number] 03:32:00 Test Item Value Reference Range Interpretation Comments LACTIC ACID (test 6.0 mmol/L 0.4-1.9 HH Critical r esult called code = LACT) to HALINA MedinaLA50 at 0 332 07/09/22Nurse taniya hdz back result and tech confirmed it's correct? YES POC ARTERIAL BLOOD [id number] 03:13:00 Test Item Value Reference Range Interpretation Comments POC ARTERIAL BLOOD GAS PH (test 7.310 7.35-7.45 L code = POCPHA) POC ARTERIAL BLOOD GAS PCO2 (test 42.8 mmHg 35.0-45 N code = ZSFUMI6L) POC TCO2 ARTERIAL (test code = 22.8 POCTCO2) POC ARTERIAL BLOOD GAS PO2 (test 73.2 mmHg 80-100.0 L code = CWPBT6X) POC HCO3 ARTERIAL (test code = 21.5 MMOL/L 22.0-26.0 L [id number]) POC BASE EXCESS (test code = -4.7 MMOL/L -4.0-4.0 L POCBEA) POC O2 SATURATION (test code = 93.0 % 90-100 N POCO2S) ABG DELIVERY (test code = JH) Cannula ABG TEMPERATURE (test code = 98.6 F TEMPA) ABG SITE (test code = SITEA) Art Line MARYLU'S TEST (test code = ALLENS) N/A BASIC METABOLIC [id number] 03:13:00 Test Item Value Reference Range Interpretation Comments SODIUM (test code = NA/ABG) 146 mmol/L 134-147 N POTASSIUM (test code = K/ABG) 4.1 mmol/L 3.4-5.0 N CHLORIDE (test code = CL/ABG) 110 mmol/L 100-108 H CREATININE ABG (test code = 4.4 mg/dL 0.8-1.3 H CREAABG) POC IONIZED CALCIUM (test code = 1.23 MMOL/L 1.12-1.32 N POCCA) POC GLUCOSE (test code = POCGLU) 245 MG/DL 70-110 H HEMOGLOBIN [id number] 03:13:00 Test Item Value Reference Range Interpretation Comments HEMOGLOBIN ABG (test code = HGB/ABG) 7.0 G/DL 12.5-16.9 L [id number] 03:13:00 Test Item Value Reference Range Interpretation Comments HEMATOCRIT (test code = HCT/ABG) 21 % 37.5-50.7 L POC LACTIC [id number] 03:13:00 Test Item Value Reference Range Interpretation Comments POC LACTIC ACID (test code = 6.1 mmol/l 0.9-1.7 HH POCLAC) POC ARTERIAL BLOOD [id number] 03:01:00 Test Item Value Reference Range Interpretation Comments POC ARTERIAL BLOOD GAS PH (test 7.273 7.35-7.45 LL code = POCPHA) POC ARTERIAL BLOOD GAS PCO2 (test 46.4 mmHg 35.0-45 H code = SOWFKU0R) POC TCO2 ARTERIAL (test code = 23.1 POCTCO2) POC ARTERIAL BLOOD GAS PO2 (test 103.4 mmHg 80-100.0 H code = BUHWX1F) POC HCO3 ARTERIAL (test code = 21.6 MMOL/L 22.0-26.0 L [id number]) POC BASE EXCESS (test code = -5.4 MMOL/L -4.0-4.0 L POCBEA) POC O2 SATURATION (test code = 97.3 % 90-100 N POCO2S) ABG DELIVERY (test code = JH) Adult Vent ABG VENT MODE (test code = MODEA) PS ABG PEEP (test code = PEEPA) 5 cmH2O ABG PRESSURE SUPPORT (test code = 10 cmH2O PSABG) ABG TEMPERATURE (test code = 97.2 F TEMPA) ABG SITE (test code = SITEA) Art Line MARYLU'S TEST (test code = ALLENS) N/A BASIC METABOLIC [id number] 03:01:00 Test Item Value Reference Range Interpretation Comments SODIUM (test code = NA/ABG) 146 mmol/L 134-147 N POTASSIUM (test code = K/ABG) 3.9 mmol/L 3.4-5.0 N CHLORIDE (test code = CL/ABG) 113 mmol/L 100-108 H CREATININE ABG (test code = 3.9 mg/dL 0.8-1.3 H CREAABG) POC IONIZED CALCIUM (test code = 1.29 MMOL/L 1.12-1.32 N POCCA) POC GLUCOSE (test code = POCGLU) 206 MG/DL 70-110 H HEMOGLOBIN [id number] 03:01:00 Test Item Value Reference Range Interpretation Comments HEMOGLOBIN ABG (test code = HGB/ABG) 8.7 G/DL 12.5-16.9 L [id number] 03:01:00 Test Item Value Reference Range Interpretation Comments HEMATOCRIT (test code = HCT/ABG) 26 % 37.5-50.7 L POC LACTIC [id number] 03:01:00 Test Item Value Reference Range Interpretation Comments POC LACTIC ACID (test code = 3.6 mmol/l 0.9-1.7 H POCLAC) GLUCOSE [id number] 02:45:00 Test Item Value Reference Range Interpretation Comments GLUCOSE BEDSIDE (test 230 MG/DL 70-110 H Perfor med by certified code = GLUBED) 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 [facility] LACTIC ACID 2ND [id number] 02:04:00 Test Item Value Reference Range Interpretation Comments LACTIC ACID 2ND REPEAT (test code 6.6 mmol/L 0.4-1.9 HH = LACT2) - XR CHEST 1 [id number] 00:00:00 [facility] : 1940 Sex: M FAX: Radha Ward MD [phone] [place]: St: ADM FAX: Los Crawford [phone] FAX: Ana Toribio [phone] Name: SHERRI ARCE [facility] : 1940 Age/S: 81/M [address] [place] [address] Bl Unit #: [id number] Loc: G.2202 [place] [address] Phys: Rosalind Puentes [employer]ADER Acct: [id number] Dis Date: Status: ADM IN PHONE #: [phone] Exam Date: 07/09/2022614 FAX #: [phone] Reason: Cardiac Surgery Post Op EXAMS: CPT CODE: [id number] XR CHEST 1 V [id number] PROCEDURE INFORMATION: Exam: XR Chest Exam date and time: 07/09/2022 4:56 AM Age: 81 years old Clinical indication: Other: Cardiac surgery post op TECHNIQUE: Imaging protocol: Radiologic exam of the chest. Views: 1 view. COMPARISON: CR XR CHEST 1V 07/08/2022 7:14 PM FINDINGS: Tubes, catheters and devices: Endotracheal tube and enteric tube have been removed. Fulton-Ally catheter tip at the level of pulmonary arterial bifurcation. Mediastinal and left thoracostomy drains in place. Lungs: Indistinct opacities in the perihilar regions and lung bases redemonstrated. The left hemidiaphragm is obscured. Pleural spaces: There is no pneumothorax. Small bilateral pleural effusions are suspected. Heart/Mediastinum: Mild prominence of the cardiomediastinal silhouette is stable. The pulmonary vasculature is indistinct. Bones/joints: Sternotomy wires are intact. IMPRESSION: 1. Stable pulmonary opacities likely combination of airspace disease and atelectasis. 2. Stable left basilar pleuroparenchymal changes with small volume pleural effusions. 3. Stable postoperative cardiomediastinal silhouette. at 0955 Reported and signed by: Babak Ratliff M.D. CC: Radha Ward MD; Los Crawford DO; Rosalind Toribio NP Technologist: RT Britta(Taniya) Trnscrd Date/Time/By: 07/09/2022(0960) : By: StevenKWL Orig Print D/T: S: 07/09/2022 (7299) PAGE 1 [facility]LO[facility] [id number] 23:43:00 Test Item Value Reference Range Interpretation Comments POC ARTERIAL BLOOD GAS PH (test 7.299 7.35-7.45 LL code = POCPHA) POC ARTERIAL BLOOD GAS PCO2 (test 41.3 mmHg 35.0-45 N code = KZHBJX0V) POC TCO2 ARTERIAL (test code = 21.5 POCTCO2) POC ARTERIAL BLOOD GAS PO2 (test 109.2 mmHg 80-100.0 H code = KCJOU9M) POC HCO3 ARTERIAL (test code = 20.3 MMOL/L 22.0-26.0 L HSKCSD3A) POC BASE EXCESS (test code = -6.2 MMOL/L -4.0-4.0 L POCBEA) POC O2 SATURATION (test code = 97.7 % 90-100 N POCO2S) ABG DELIVERY (test code = JH) Cannula ABG TEMPERATURE (test code = 98.6 F TEMPA) ABG SITE (test code = SITEA) Art Line MARYLU'S TEST (test code = ALLENS) N/A BASIC METABOLIC [id number] 23:43:00 Test Item Value Reference Range Interpretation Comments SODIUM (test code = NA/ABG) 148 mmol/L 134-147 H POTASSIUM (test code = K/ABG) 3.5 mmol/L 3.4-5.0 N CHLORIDE (test code = CL/ABG) 114 mmol/L 100-108 H CREATININE ABG (test code = 4.1 mg/dL 0.8-1.3 H CREAABG) POC IONIZED CALCIUM (test code = 1.18 MMOL/L 1.12-1.32 N POCCA) POC GLUCOSE (test code = POCGLU) 234 MG/DL 70-110 H HEMOGLOBIN [id number] 23:43:00 Test Item Value Reference Range Interpretation Comments HEMOGLOBIN ABG (test code = HGB/ABG) 7.7 G/DL 12.5-16.9 L [id number] 23:43:00 Test Item Value Reference Range Interpretation Comments HEMATOCRIT (test code = HCT/ABG) 23 % 37.5-50.7 L POC LACTIC [id number] 23:43:00 Test Item Value Reference Range Interpretation Comments POC LACTIC ACID (test code = 5.1 mmol/l 0.9-1.7 HH POCLAC) LACTIC ACID [id number] 22:54:00 Test Item Value Reference Range Interpretation Comments LACTIC ACID REPEAT (test code = 5.0 mmol/l 0.4-1.9 HH LACTR) BASIC METABOLIC [id number] 20:54:00 Test Item Value Reference Range Interpretation Comments SODIUM (test code = NA/ABG) 148 mmol/L 134-147 H POTASSIUM (test code = K/ABG) 3.6 mmol/L 3.4-5.0 N CHLORIDE (test code = CL/ABG) 115 mmol/L 100-108 H CREATININE ABG (test code = 3.9 mg/dL 0.8-1.3 H CREAABG) POC IONIZED CALCIUM (test code = 1.26 MMOL/L 1.12-1.32 N POCCA) POC GLUCOSE (test code = POCGLU) 190 MG/DL 70-110 H HEMOGLOBIN [id number] 20:54:00 Test Item Value Reference Range Interpretation Comments HEMOGLOBIN ABG (test code = HGB/ABG) 8.0 G/DL 12.5-16.9 L [id number] 20:54:00 Test Item Value Reference Range Interpretation Comments HEMATOCRIT (test code = HCT/ABG) 23 % 37.5-50.7 L POC LACTIC [id number] 20:54:00 Test Item Value Reference Range Interpretation Comments POC LACTIC ACID (test code = 2.5 mmol/l 0.9-1.7 H POCLAC) POC VENOUS BLOOD [id number] 20:54:00 Test Item Value Reference Range Interpretation Comments MARYLU'S TEST (test code = ALLENS) N/A POC VENOUS BLOOD GAS PH (test 7.265 7.33-7.45 L code = POCPHV) POC VENOUS BLOOD GAS PCO2 (test 48.5 mmHg 43-47 H code = WHSVBH5I) POC VENOUS BLOOD GAS PO2 (test 41.1 mmHG 10-50 N code = JXJCG9N) POC TCO2 VENOUS (test code = 23.9 LZBPMH8J) POC HCO3 VENOUS (test code = 22.3 MMOL/L 22-27 N PYDEZR7G) POC BASE EXCESS VENOUS (test code -4.9 MMOL/L -4.0-4.0 L = POCBEV) POC O2 SATURATION VENOUS (test 72.4 % 60-80 N code = NRHV5YR) VENOUS BLOOD GAS FIO2 (test code 50 % = FIO2V) VENOUS BLOOD GAS DELIVERY (test Adult Vent code = DELV) VBG VENT MODE (test code = MODEV) SIMV TRISTON. BLOOD GAS RESP. RATE (test 16 /min code = RRV) VBG TIDAL VOLUME (test code = 450 ml TVV) VENOUS BLOOD GAS PEEP (test code 5 cmH2O = PEEPV) VENOUS BLOOD GAS TEMP (test code 96.4 F = TEMPV) VENOUS BLOOD GAS SITE (test code Fulton Ally = SITEV) CBC W/AUTO [id number] 20:37:00 Test Item Value Reference Range Interpretation Comments WHITE BLOOD CELL 39.6 x10 3/uL 4.5-11.0 H (test code = WBC) RED BLOOD CELL (test 2.45 x10 6/uL 4.00-5.60 L code = RBC) HEMOGLOBIN (test code 7.6 g/dL 12.5-16.9 L = HGB) HEMATOCRIT (test code 24.6 % 37.5-50.7 L = HCT) MEAN CELL VOLUME 100.4 fL 81.0-99.0 H (test code = MCV) MEAN CELL HGB (test 31.0 pg 27.0-33.0 N code = MCH) MEAN CELL HGB 30.9 g/dL 33.0-37.0 L CONCETRATION (test code = MCHC) RED CELL DISTRIBUTION 16.1 % 11.5-14.5 H WIDTH CV (test code = RDW) RED CELL DISTRIBUTION 59.1 fL 37.0-54.0 H WIDTH SD (test code = RDW-SD) PLATELET COUNT (test 133 x10 3/uL 150-400 L code = PLT) MEAN PLATELET VOLUME 11.1 fL 7.0-9.0 H (test code = MPV) NEUTROPHIL % (test 87.8 % 56.0-77.0 H code = NT%) LYMPHOCYTE % (test 3.5 % 14.0-32.0 L code = LY%) NEUTROPHIL # (test 34.72 x10 3/uL 2.0-7.6 H code = NT#) LYMPHOCYTE # (test 1.40 x10 3/uL 1.0-3.8 N code = LY#) MANUAL DIFF REQUIRED NO SLIDE R EVIEWED, (test code = MDIFF) CONSISTE NT WITH AUTO DIFF. IMMATURE GRANULOCYTE 3.1 % 0.0-2.0 H % (test code = IG%) MONOCYTE % (test code 3.9 % 4.8-9.0 L = MO%) EOSINOPHIL % (test 1.4 % 0.3-3.7 N code = EO%) BASOPHIL % (test code 0.3 % 0.0-2.0 N = BA%) NUCLEATED RBC % (test 0.0 % 0-0 N code = NRBC%) IMMATURE GRANULOCYTE 1.21 x10 3/uL 0.00-0.03 H # (test code = IG#) MONOCYTE # (test code 1.54 x10 3/uL 0.1-0.8 H = MO#) EOSINOPHIL # (test 0.57 x10 3/uL 0.0-0.2 H code = EO#) BASOPHIL # (test code 0.12 x10 3/uL 0.0-0.2 N = BA#) NUCLEATED RBC # (test 0.00 x10 3/uL 0.0-0.1 N code = NRBC#) COMMENTS: On arrivalPROTHROMBIN [id number] 20:37:00 Test Item Value Reference Range Interpretation Comments PROTHROMBIN TIME 16.2 SECONDS 9.3-12.9 H PATIENT (test code = PTP) INTERNATIONAL NORMAL 1.5 0.8-1.2 H TARGET INR BY RATIO (test code = INDICATIO N Indication INR) INR1. Prophylax is of venous thrombos is 2.0 - 3.0 (orthoped ic surgery), Proph ylaxis of venous throm bosis (other than hig h-risk surgery), Treat ment of Deep Vein Thrombosis/Pulm onary Embolism, Preve ntion of systemic emb olism - Tissue heart va lves, Acute Myocardia l Infarction (to prevent systemic emboli sm), Valvular heart disease, Atrial Fibrillation, Bileaflet mecha nical valve in aortic position.2. Mec hanical prosthetic valv es (high risk), 2. 5 - 3.5 Presence of Lup us Anticoagulant o r Antiphospholipi d Antibodies, Pre vention of systemic emb olism - Acute Myocardia l Infarction (to prevent recurrent infar ct). COMMENTS: On arrivalTHROMBOPLASTIN TIME [id number] 20:37:00 Test Item Value Reference Range Interpretation Comments THROMBOPLASTIN TIME 31.3 Seconds 25.0-39.5 N Therape utic Range: PARTIAL (test code = 50.4 - 88.3 Seconds PTT) Effective 09/21/2018 COMMENTS: On arrivalBASIC METABOLIC [id number] 20:32:00 Test Item Value Reference Range Interpretation Comments SODIUM (test code = 148 mEq/L 134-147 H NA) POTASSIUM (test code 4.0 mEq/L 3.4-5.0 N = K) CHLORIDE (test code 114 mEq/L 100-108 H = CL) CARBON DIOXIDE (test 22 mEq/l 21-33 N code = CO2) ANION GAP (test code 16 0-20 N = GAP) GLUCOSE (test code = 197 mg/dL 70-110 H GLU) BLOOD UREA NITROGEN 37 mg/dL 7-18 H (test code = BUN) GLOMERULAR 14.1 70-80 L The Glomerular FILTRATION RATE Filtration R ate is a (test code = GFR) calculated parameterbased on serum Creatinine, pat ient age and sex. GFR va luesless than 60 mL/min/ 1.73 square meters a re indicative ofCh ronic Kidney Disease. Values less than 15 mL/min/1.73squa re meters indicate Kidney failure. The calculation forGFR is based on the CKD-EPI (2020) calculat ion. This formulais race indifferent and is the recommended for lucretia for GFRby the [facility] Found[facility] on for Adults.The GFR will not calculate if th e sex is unknown or if thepatient's ag e is <18 years. CREATININE (test 4.1 mg/dL 0.6-1.3 H code = CREAT) CALCIUM (test code = 7.6 mg/dL 8.0-10.5 L CA) COMMENTS: On [id number] 20:32:00 Test Item Value Reference Range Interpretation Comments MAGNESIUM (test code = MAG) 2.53 mg/dL 1.80-2.40 H COMMENTS: On arrivalLACTIC [id number] 20:31:00 Test Item Value Reference Range Interpretation Comments LACTIC ACID (test code = LACT) 2.1 mmol/L 0.4-1.9 H POC ARTERIAL BLOOD [id number] 19:38:00 Test Item Value Reference Range Interpretation Comments POC ARTERIAL BLOOD GAS PH (test 7.263 7.35-7.45 LL code = POCPHA) POC ARTERIAL BLOOD GAS PCO2 44.1 mmHg 35.0-45 N (test code = DQUMZL1V) POC TCO2 ARTERIAL (test code = 21.5 POCTCO2) POC ARTERIAL BLOOD GAS PO2 (test 111.1 mmHg 80-100.0 H code = [id number]) POC HCO3 ARTERIAL (test code = 20.1 MMOL/L 22.0-26.0 L [id number]) POC BASE EXCESS (test code = -7.1 MMOL/L -4.0-4.0 L POCBEA) POC O2 SATURATION (test code = 97.7 % 90-100 N POCO2S) FIO2 (test code = FIO2A) 50 % PaO2/FiO2 (test code = [id number]) 222.20 mm/Hg ABG DELIVERY (test code = JH) Adult Vent ABG VENT MODE (test code = AC MODEA) ABG VENT RESP RATE (test code = 16 /MIN RRA) ABG TIDAL VOLUME (test code = 450 ml TVA) ABG PEEP (test code = PEEPA) 5 cmH2O ABG TEMPERATURE (test code = 97.3 F TEMPA) ABG SITE (test code = SITEA) Art Line BASIC METABOLIC [id number] 19:38:00 Test Item Value Reference Range Interpretation Comments SODIUM (test code = NA/ABG) 146 mmol/L 134-147 N POTASSIUM (test code = K/ABG) 3.9 mmol/L 3.4-5.0 N CHLORIDE (test code = CL/ABG) 114 mmol/L 100-108 H CREATININE ABG (test code = 3.9 mg/dL 0.8-1.3 H CREAABG) POC IONIZED CALCIUM (test code = 1.18 MMOL/L 1.12-1.32 N POCCA) POC GLUCOSE (test code = POCGLU) 201 MG/DL 70-110 H HEMOGLOBIN [id number] 19:38:00 Test Item Value Reference Range Interpretation Comments HEMOGLOBIN ABG (test code = HGB/ABG) 8.3 G/DL 12.5-16.9 L [id number] 19:38:00 Test Item Value Reference Range Interpretation Comments HEMATOCRIT (test code = HCT/ABG) 24 % 37.5-50.7 L POC LACTIC [id number] 19:38:00 Test Item Value Reference Range Interpretation Comments POC LACTIC ACID (test code = 2.1 mmol/l 0.9-1.7 H POCLAC) [id number] 18:50:00 Test Item Value Reference Range Interpretation Comments ACT-ISTAT (test code 143 SEC 74-137 H Perform ed by certified = ACTI) 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 [facility] POC ARTERIAL BLOOD [id number] 18:46:00 Test Item Value Reference Range Interpretation Comments POC ARTERIAL BLOOD GAS PH (test 7.313 7.35-7.45 L code = POCPHA) POC ARTERIAL BLOOD GAS PCO2 (test 36.8 mmHg 35.0-45 N code = [id number]) POC TCO2 ARTERIAL (test code = 19.8 POCTCO2) POC ARTERIAL BLOOD GAS PO2 (test 375.0 mmHg 80-100.0 HH code = UNTQB7O) POC HCO3 ARTERIAL (test code = 18.7 MMOL/L 22.0-26.0 L [id number]) POC BASE EXCESS (test code = -6.9 MMOL/L -4.0-4.0 L POCBEA) POC O2 SATURATION (test code = 99.9 % 90-100 N POCO2S) BASIC METABOLIC [id number] 18:46:00 Test Item Value Reference Range Interpretation Comments SODIUM (test code = NA/ABG) 147 mmol/L 134-147 N POTASSIUM (test code = K/ABG) 3.7 mmol/L 3.4-5.0 N CHLORIDE (test code = CL/ABG) 117 mmol/L 100-108 H CREATININE ABG (test code = 3.9 mg/dL 0.8-1.3 H CREAABG) POC IONIZED CALCIUM (test code = 1.06 MMOL/L 1.12-1.32 L POCCA) POC GLUCOSE (test code = POCGLU) 181 MG/DL 70-110 H HEMOGLOBIN [id number] 18:46:00 Test Item Value Reference Range Interpretation Comments HEMOGLOBIN ABG (test code = HGB/ABG) 7.5 G/DL 12.5-16.9 L [id number] 18:46:00 Test Item Value Reference Range Interpretation Comments HEMATOCRIT (test code = HCT/ABG) 22 % 37.5-50.7 L POC LACTIC [id number] 18:46:00 Test Item Value Reference Range Interpretation Comments POC LACTIC ACID (test code = 2.5 mmol/l 0.9-1.7 H POCLAC) [id number] 17:57:00 Test Item Value Reference Range Interpretation Comments ACT-ISTAT (test code 522 SEC 74-137 H Perform ed by certified = ACTI) 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 [facility] POC ARTERIAL BLOOD [id number] 17:50:00 Test Item Value Reference Range Interpretation Comments POC ARTERIAL BLOOD GAS PH (test 7.432 7.35-7.45 N code = POCPHA) POC ARTERIAL BLOOD GAS PCO2 (test 33.6 mmHg 35.0-45 L code = [id number]) POC TCO2 ARTERIAL (test code = 23.4 POCTCO2) POC ARTERIAL BLOOD GAS PO2 (test 404.5 mmHg 80-100.0 HH code = FYONY0V) POC HCO3 ARTERIAL (test code = 22.4 MMOL/L 22.0-26.0 N [id number]) POC BASE EXCESS (test code = -1.6 MMOL/L -4.0-4.0 N POCBEA) POC O2 SATURATION (test code = 100.0 % 90-100 N POCO2S) BASIC METABOLIC [id number] 17:50:00 Test Item Value Reference Range Interpretation Comments SODIUM (test code = NA/ABG) 144 mmol/L 134-147 N POTASSIUM (test code = K/ABG) 5.0 mmol/L 3.4-5.0 N CHLORIDE (test code = CL/ABG) 109 mmol/L 100-108 H CREATININE ABG (test code = 4.0 mg/dL 0.8-1.3 H CREAABG) POC IONIZED CALCIUM (test code = 1.03 MMOL/L 1.12-1.32 L POCCA) POC GLUCOSE (test code = POCGLU) 171 MG/DL 70-110 H HEMOGLOBIN [id number] 17:50:00 Test Item Value Reference Range Interpretation Comments HEMOGLOBIN ABG (test code = HGB/ABG) 7.7 G/DL 12.5-16.9 L [id number] 17:50:00 Test Item Value Reference Range Interpretation Comments HEMATOCRIT (test code = HCT/ABG) 23 % 37.5-50.7 L POC LACTIC [id number] 17:50:00 Test Item Value Reference Range Interpretation Comments POC LACTIC ACID (test code = 1.8 mmol/l 0.9-1.7 H POCLAC) [id number] 17:32:00 Test Item Value Reference Range Interpretation Comments ACT-ISTAT (test code 636 SEC 74-137 H Perform ed by certified = ACTI) 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 [facility] POC ARTERIAL BLOOD [id number] 17:23:00 Test Item Value Reference Range Interpretation Comments POC ARTERIAL BLOOD GAS PH (test 7.401 7.35-7.45 N code = POCPHA) POC ARTERIAL BLOOD GAS PCO2 (test 33.4 mmHg 35.0-45 L code = ZDITZO0M) POC TCO2 ARTERIAL (test code = 21.7 POCTCO2) POC ARTERIAL BLOOD GAS PO2 (test 327.7 mmHg 80-100.0 HH code = RGKVL9C) POC HCO3 ARTERIAL (test code = 20.7 MMOL/L 22.0-26.0 L [id number]) POC BASE EXCESS (test code = -3.6 MMOL/L -4.0-4.0 N POCBEA) POC O2 SATURATION (test code = 99.9 % 90-100 N POCO2S) BASIC METABOLIC [id number] 17:23:00 Test Item Value Reference Range Interpretation Comments SODIUM (test code = NA/ABG) 142 mmol/L 134-147 N POTASSIUM (test code = K/ABG) 4.7 mmol/L 3.4-5.0 N CHLORIDE (test code = CL/ABG) 110 mmol/L 100-108 H CREATININE ABG (test code = 4.3 mg/dL 0.8-1.3 H CREAABG) POC IONIZED CALCIUM (test code = 1.04 MMOL/L 1.12-1.32 L POCCA) POC GLUCOSE (test code = POCGLU) 171 MG/DL 70-110 H HEMOGLOBIN [id number] 17:23:00 Test Item Value Reference Range Interpretation Comments HEMOGLOBIN ABG (test code = HGB/ABG) 8.6 G/DL 12.5-16.9 L [id number] 17:23:00 Test Item Value Reference Range Interpretation Comments HEMATOCRIT (test code = HCT/ABG) 25 % 37.5-50.7 L POC LACTIC [id number] 17:23:00 Test Item Value Reference Range Interpretation Comments POC LACTIC ACID (test code = 1.2 mmol/l 0.9-1.7 N POCLAC) [id number] 16:57:00 Test Item Value Reference Range Interpretation Comments KIRA-ISJOSET (test code 648 SEC 74-137 H Perform ed by certified = CURTIS) 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 [facility] POC ARTERIAL BLOOD [id number] 16:46:00 Test Item Value Reference Range Interpretation Comments POC ARTERIAL BLOOD GAS PH (test 7.355 7.35-7.45 N code = POCPHA) POC ARTERIAL BLOOD GAS PCO2 (test 43.3 mmHg 35.0-45 N code = XBRWOV7H) POC TCO2 ARTERIAL (test code = 25.5 POCTCO2) POC ARTERIAL BLOOD GAS PO2 (test 469.8 mmHg 80-100.0 HH code = DQTLM1R) POC HCO3 ARTERIAL (test code = 24.2 MMOL/L 22.0-26.0 N [id number]) POC BASE EXCESS (test code = -1.3 MMOL/L -4.0-4.0 N POCBEA) POC O2 SATURATION (test code = 100.0 % 90-100 N POCO2S) BASIC METABOLIC [id number] 16:46:00 Test Item Value Reference Range Interpretation Comments SODIUM (test code = NA/ABG) 142 mmol/L 134-147 N POTASSIUM (test code = K/ABG) 4.6 mmol/L 3.4-5.0 N CHLORIDE (test code = CL/ABG) 108 mmol/L 100-108 N CREATININE ABG (test code = 4.0 mg/dL 0.8-1.3 H CREAABG) POC IONIZED CALCIUM (test code = 1.06 MMOL/L 1.12-1.32 L POCCA) POC GLUCOSE (test code = POCGLU) 169 MG/DL 70-110 H HEMOGLOBIN [id number] 16:46:00 Test Item Value Reference Range Interpretation Comments HEMOGLOBIN ABG (test code = HGB/ABG) 8.4 G/DL 12.5-16.9 L [id number] 16:46:00 Test Item Value Reference Range Interpretation Comments HEMATOCRIT (test code = HCT/ABG) 25 % 37.5-50.7 L POC LACTIC [id number] 16:46:00 Test Item Value Reference Range Interpretation Comments POC LACTIC ACID (test code = 0.6 mmol/l 0.9-1.7 L POCLAC) [id number] 16:00:00 Test Item Value Reference Range Interpretation Comments MARYCHUY (test code 606 SEC 74-137 H Perform ed by certified = CURTIS) 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 [facility] [id number] 15:50:00 Test Item Value Reference Range Interpretation Comments HEMATOCRIT (test code = HCT/ABG) 32 % 37.5-50.7 L POC LACTIC [id number] 15:50:00 Test Item Value Reference Range Interpretation Comments POC LACTIC ACID (test code = 0.8 mmol/l 0.9-1.7 L POCLAC) POC ARTERIAL BLOOD [id number] 15:50:00 Test Item Value Reference Range Interpretation Comments POC ARTERIAL BLOOD GAS PH (test 7.262 7.35-7.45 LL code = POCPHA) POC ARTERIAL BLOOD GAS PCO2 (test 49.5 mmHg 35.0-45 H code = OJSPWQ7I) POC TCO2 ARTERIAL (test code = 23.8 POCTCO2) POC ARTERIAL BLOOD GAS PO2 (test 458.7 mmHg 80-100.0 HH code = VKDAG5V) POC HCO3 ARTERIAL (test code = 22.3 MMOL/L 22.0-26.0 N RUEMZH3M) POC BASE EXCESS (test code = -4.8 MMOL/L -4.0-4.0 L POCBEA) POC O2 SATURATION (test code = 100.0 % 90-100 N POCO2S) BASIC METABOLIC [id number] 15:50:00 Test Item Value Reference Range Interpretation Comments SODIUM (test code = NA/ABG) 144 mmol/L 134-147 N POTASSIUM (test code = K/ABG) 4.1 mmol/L 3.4-5.0 N CHLORIDE (test code = CL/ABG) 111 mmol/L 100-108 H CREATININE ABG (test code = 4.6 mg/dL 0.8-1.3 H CREAABG) POC IONIZED CALCIUM (test code = 1.15 MMOL/L 1.12-1.32 N POCCA) POC GLUCOSE (test code = POCGLU) 141 MG/DL 70-110 H HEMOGLOBIN [id number] 15:50:00 Test Item Value Reference Range Interpretation Comments HEMOGLOBIN ABG (test code = 10.8 G/DL 12.5-16.9 L HGB/ABG) [id number] 15:07:00 Test Item Value Reference Range Interpretation Comments ACT-ISTAT (test code 137 SEC 74-137 N Perform ed by certified = ACTI) 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 [facility] POC ARTERIAL BLOOD [id number] 14:52:00 Test Item Value Reference Range Interpretation Comments POC ARTERIAL BLOOD GAS PH (test 7.330 7.35-7.45 L code = POCPHA) POC ARTERIAL BLOOD GAS PCO2 (test 40.0 mmHg 35.0-45 N code = UUOYAK3M) POC TCO2 ARTERIAL (test code = 22.3 POCTCO2) POC ARTERIAL BLOOD GAS PO2 (test 487.7 mmHg 80-100.0 HH code = DFKEE2L) POC HCO3 ARTERIAL (test code = 21.1 MMOL/L 22.0-26.0 L ADXTHF5M) POC BASE EXCESS (test code = -4.5 MMOL/L -4.0-4.0 L POCBEA) POC O2 SATURATION (test code = 100.0 % 90-100 N POCO2S) BASIC METABOLIC [id number] 14:52:00 Test Item Value Reference Range Interpretation Comments SODIUM (test code = NA/ABG) 147 mmol/L 134-147 N POTASSIUM (test code = K/ABG) 4.2 mmol/L 3.4-5.0 N CHLORIDE (test code = CL/ABG) 112 mmol/L 100-108 H CREATININE ABG (test code = 4.0 mg/dL 0.8-1.3 H CREAABG) POC IONIZED CALCIUM (test code = 1.11 MMOL/L 1.12-1.32 L POCCA) POC GLUCOSE (test code = POCGLU) 88 MG/DL 70-110 N HEMOGLOBIN [id number] 14:52:00 Test Item Value Reference Range Interpretation Comments HEMOGLOBIN ABG (test code = 11.3 G/DL 12.5-16.9 L HGB/ABG) [id number] 14:52:00 Test Item Value Reference Range Interpretation Comments HEMATOCRIT (test code = HCT/ABG) 33 % 37.5-50.7 L POC LACTIC [id number] 14:52:00 Test Item Value Reference Range Interpretation Comments POC LACTIC ACID (test code = < 0.3 mmol/l 0.9-1.7 L POCLAC) PROTHROMBIN [id number] 06:01:00 Test Item Value Reference Range Interpretation Comments PROTHROMBIN TIME 12.9 SECONDS 9.3-12.9 N PATIENT (test code = PTP) INTERNATIONAL NORMAL 1.2 0.8-1.2 N TARGET INR BY RATIO (test code = INDICATIO N Indication INR) INR1. Prophylax is of venous thrombos is 2.0 - 3.0 (orthoped ic surgery), Proph ylaxis of venous throm bosis (other than hig h-risk surgery), Treat ment of Deep Vein Thrombosis/Pulm onary Embolism, Preve ntion of systemic emb olism - Tissue heart va lves, Acute Myocardia l Infarction (to prevent systemic emboli sm), Valvular heart disease, Atrial Fibrillation, Bileaflet mecha nical valve in aortic position.2. Mec hanical prosthetic valv es (high risk), 2. 5 - 3.5 Presence of Lup us Anticoagulant o r Antiphospholipi d Antibodies, Pre vention of systemic emb olism - Acute Myocardia l Infarction (to prevent recurrent infar ct). THROMBOPLASTIN TIME [id number] 06:01:00 Test Item Value Reference Range Interpretation Comments THROMBOPLASTIN TIME 31.8 Seconds 25.0-39.5 N Therape utic Range: PARTIAL (test code = 50.4 - 88.3 Seconds PTT) Effective 09/21/2018 COMPREHENSIVE METABOLIC [id number] 06:00:00 Test Item Value Reference Range Interpretation Comments SODIUM (test code = 145 mEq/L 134-147 N NA) POTASSIUM (test code 4.7 mEq/L 3.4-5.0 N = K) CHLORIDE (test code 109 mEq/L 100-108 H = CL) CARBON DIOXIDE (test 26 mEq/l 21-33 N code = CO2) ANION GAP (test code 15 0-20 N = GAP) GLUCOSE (test code = 90 mg/dL 70-110 N GLU) BLOOD UREA NITROGEN 35 mg/dL 7-18 H (test code = BUN) GLOMERULAR 14.5 70-80 L The Glomerular FILTRATION RATE Filtration R ate is a (test code = GFR) calculated parameterbased on serum Creatinine, pat ient age and sex. GFR va luesless than 60 mL/min/ 1.73 square meters a re indicative ofCh ronic Kidney Disease. Values less than 15 mL/min/1.73squa re meters indicate Kidney failure. The calculation for GFR is based on the CK D-EPI (2020) calculat ion. This formulais race indifferent and is the recommended for lucretia for GFRby the [facility] for Ad[facility].The GFR will not calculate if th e sex is unknown or if thepatient's ag e is <18 years. CREATININE (test 4.0 mg/dL 0.6-1.3 H code = CREAT) TOTAL PROTEIN (test 7.0 g/dL 6.4-8.2 N code = PROT) ALBUMIN (test code = 2.80 g/dL 3.4-5.0 L ALB) CALCIUM (test code = 8.7 mg/dL 8.0-10.5 N CA) BILIRUBIN TOTAL 0.20 mg/dL 0.0-1.0 (test code = BILT) SGOT/AST (test code 34 IUnit/L 15-37 N = AST) SGPT/ALT (test code 34 IUnit/L 30-65 N = ALT) ALKALINE PHOSPHATASE 93 IUnit/L 20-125 N TOTAL (test code = ALKP) [id number] 06:00:00 Test Item Value Reference Range Interpretation Comments PHOSPHOROUS (test code = PHOS) 3.8 MG/DL 2.5-4.9 N [id number] 06:00:00 Test Item Value Reference Range Interpretation Comments MAGNESIUM (test code = MAG) 1.92 mg/dL 1.80-2.40 N CBC W/AUTO [id number] 05:48:00 Test Item Value Reference Range Interpretation Comments WHITE BLOOD CELL (test code = 13.6 x10 3/uL 4.5-11.0 H WBC) RED BLOOD CELL (test code = 3.60 x10 6/uL 4.00-5.60 L RBC) HEMOGLOBIN (test code = HGB) 10.8 g/dL 12.5-16.9 L HEMATOCRIT (test code = HCT) 35.4 % 37.5-50.7 L MEAN CELL VOLUME (test code = 98.3 fL 81.0-99.0 N MCV) MEAN CELL HGB (test code = MCH) 30.0 pg 27.0-33.0 N MEAN CELL HGB CONCETRATION 30.5 g/dL 33.0-37.0 L (test code = MCHC) RED CELL DISTRIBUTION WIDTH CV 16.8 % 11.5-14.5 H (test code = RDW) RED CELL DISTRIBUTION WIDTH SD 61.1 fL 37.0-54.0 H (test code = RDW-SD) PLATELET COUNT (test code = 164 x10 3/uL 150-400 N PLT) MEAN PLATELET VOLUME (test code 10.9 fL 7.0-9.0 H = MPV) NEUTROPHIL % (test code = NT%) 68.9 % 56.0-77.0 N IMMATURE GRANULOCYTE % (test 1.4 % 0.0-2.0 N code = IG%) LYMPHOCYTE % (test code = LY%) 10.2 % 14.0-32.0 L MONOCYTE % (test code = MO%) 8.6 % 4.8-9.0 N EOSINOPHIL % (test code = EO%) 10.2 % 0.3-3.7 H BASOPHIL % (test code = BA%) 0.7 % 0.0-2.0 N NUCLEATED RBC % (test code = 0.0 % 0-0 N NRBC%) NEUTROPHIL # (test code = NT#) 9.37 x10 3/uL 2.0-7.6 H IMMATURE GRANULOCYTE # (test 0.19 x10 3/uL 0.00-0.03 H code = IG#) LYMPHOCYTE # (test code = LY#) 1.38 x10 3/uL 1.0-3.8 N MONOCYTE # (test code = MO#) 1.17 x10 3/uL 0.1-0.8 H EOSINOPHIL # (test code = EO#) 1.39 x10 3/uL 0.0-0.2 H BASOPHIL # (test code = BA#) 0.09 x10 3/uL 0.0-0.2 N NUCLEATED RBC # (test code = 0.00 x10 3/uL 0.0-0.1 N NRBC#) MANUAL DIFF REQUIRED (test code NO = MDIFF) - XR CHEST 1 [id number] 00:00:00 [facility] 1940 Sex: M FAX: Radha Ward MD [phone] [place]: St: ADM FAX: [place] Crawford [phone] FAX: Ana Toribio [phone] Name: SHERRI ARCE [facility] : 1940 Age/S: 81/M [address] [place] [address] Unit #: [id number] Loc: G.[address] [place] [address] Phys: Rosalind Puentes [employer] Acct: [id number] Dis Date: Status: ADM IN PHONE #: [phone] Exam Date: 07/08/20221919 FAX #: [phone] Reason: Cardiac Surgery Post Op EXAMS: CPT CODE: [id number] XR CHEST 1 V [id number] PROCEDURE INFORMATION: Exam: XR Chest Exam date and time: 07/08/2022 7:14 PM Age: 81 years old Clinical indication: Other: Cardiac surgery post op TECHNIQUE: Imaging protocol: Radiologic exam of the chest. Views: 1 view. COMPARISON: CT CHEST W/O CONTRAST 07/03/2022 11:54 AM FINDINGS: Lungs: There is minimal vascular congestion with bibasilar pulmonary opacities. The tip of an endotracheal tube is 7 cm cephalad of the michael. A right IJ Fulton-Ally catheter tip projects overlying the midline cardiac silhouette. An NG tube tip is in the expected location of the stomach. Pleural spaces: A left chest tube is present. No pleural effusion. No pneumothorax. Heart/Mediastinum: The cardiac silhouette is enlarged. Previous midline sternotomy. Bones/joints:Unremarkable. IMPRESSION: Postoperative change with minimal vascular congestion and bibasilar pulmonary opacities. at 1955 Reported and signed by: Herb Strong M.D. CC: Radha Ward MD; [place] Crawford DO; Rosalind Toribio NP Technologist: Elton Pradhan Trnsandy Date/Time/By: 07/08/2022 (1955) : By: Sudhir Orig PrintD/T: S: 07/08/2022 (1955) PAGE 1 Signed ReportGLUCOSE [id number] 18:27:00 Test Item Value Reference Range Interpretation Comments GLUCOSE BEDSIDE (test 112 MG/DL 70-110 H Perfor med by certified code = GLUBED) 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 [facility] GLUCOSE [id number] 12:36:00 Test Item Value Reference Range Interpretation Comments GLUCOSE BEDSIDE (test 97 MG/DL 70-110 N Perfor med by certified code = GLUBED) 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 [facility] PROTHROMBIN [id number] 06:05:00 Test Item Value Reference Range Interpretation Comments PROTHROMBIN TIME 13.4 SECONDS 9.3-12.9 H PATIENT (test code = PTP) INTERNATIONAL NORMAL 1.2 0.8-1.2 N TARGET INR BY RATIO (test code = INDICATIO N Indication INR) INR1. Prophylax is of venous thrombos is 2.0 - 3.0 (orthoped ic surgery), Proph ylaxis of venous throm bosis (other than hig h-risk surgery), Treat ment of Deep Vein Thrombosis/Pulm onary Embolism, Preve ntion of systemic emb olism - Tissue heart va lves, Acute Myocardia l Infarction (to prevent systemic emboli sm), Valvular heart disease, Atrial Fibrillation, Bileaflet mecha nical valve in aortic position.2. Mec hanical prosthetic valv es (high risk), 2. 5 - 3.5 Presence of Lup us Anticoagulant o r Antiphospholipi d Antibodies, Pre vention of systemic emb olism - Acute Myocardia l Infarction (to prevent recurrent infar ct). THROMBOPLASTIN TIME [id number] 06:05:00 Test Item Value Reference Range Interpretation Comments THROMBOPLASTIN TIME 33.5 Seconds 25.0-39.5 N Therape utic Range: PARTIAL (test code = 50.4 - 88.3 Seconds PTT) Effective 09/21/2018 B-TYPE NATRIURETIC [id number] 04:25:00 Test Item Value Reference Range Interpretation Comments B-TYPE NATRIURETIC PEPTIDE (test 161.0 PG/ML 0-100 H code = BNP) COMPREHENSIVE METABOLIC [id number] 04:13:00 Test Item Value Reference Range Interpretation Comments SODIUM (test code = 143 mEq/L 134-147 N NA) POTASSIUM (test code 4.8 mEq/L 3.4-5.0 N = K) CHLORIDE (test code 111 mEq/L 100-108 H = CL) CARBON DIOXIDE (test 23 mEq/l 21-33 N code = CO2) ANION GAP (test code 14 0-20 N = GAP) GLUCOSE (test code = 93 mg/dL 70-110 N GLU) BLOOD UREA NITROGEN 37 mg/dL 7-18 H (test code = BUN) GLOMERULAR 12.6 70-80 L The Glomerular FILTRATION RATE Filtration R ate is a (test code = GFR) calculated parameterbased on serum Creatinine, pat ient age and sex. GFR va luesless than 60 mL/min/ 1.73 square meters a re indicative ofCh ronic Kidney Disease. Values less than 15 mL/min/1.73squa re meters indicate Kidney failure. The calculation for GFR is based on the CK D-EPI (2020) calculat ion. This formulais race indifferent and is the recommended for lucretia for GFRby the [facility] for Adults.The GFR will not calculate if th e sex is unknown or if thepatient's ag e is <18 years. CREATININE (test 4.5 mg/dL 0.6-1.3 H code = CREAT) TOTAL PROTEIN (test 6.9 g/dL 6.4-8.2 N code = PROT) ALBUMIN (test code = 2.90 g/dL 3.4-5.0 L ALB) CALCIUM (test code = 8.6 mg/dL 8.0-10.5 N CA) BILIRUBIN TOTAL 0.30 mg/dL 0.0-1.0 N (test code = BILT) SGOT/AST (test code 37 IUnit/L 15-37 N = AST) SGPT/ALT (test code 33 IUnit/L 30-65 N = ALT) ALKALINE PHOSPHATASE 90 IUnit/L 20-125 N TOTAL (test code = ALKP) [id number] 04:13:00 Test Item Value Reference Range Interpretation Comments PHOSPHOROUS (test code = PHOS) 4.1 MG/DL 2.5-4.9 N [id number] 04:13:00 Test Item Value Reference Range Interpretation Comments MAGNESIUM (test code = MAG) 1.75 mg/dL 1.80-2.40 L CBC W/AUTO [id number] 03:57:00 Test Item Value Reference Range Interpretation Comments WHITE BLOOD CELL (test code = 11.6 x10 3/uL 4.5-11.0 H WBC) RED BLOOD CELL (test code = 3.58 x10 6/uL 4.00-5.60 L RBC) HEMOGLOBIN (test code = HGB) 10.8 g/dL 12.5-16.9 L HEMATOCRIT (test code = HCT) 34.3 % 37.5-50.7 L MEAN CELL VOLUME (test code = 95.8 fL 81.0-99.0 MCV) MEAN CELL HGB (test code = MCH) 30.2 pg 27.0-33.0 N MEAN CELL HGB CONCETRATION 31.5 g/dL 33.0-37.0 L (test code = MCHC) RED CELL DISTRIBUTION WIDTH CV 17.2 % 11.5-14.5 H (test code = RDW) RED CELL DISTRIBUTION WIDTH SD 61.1 fL 37.0-54.0 H (test code = RDW-SD) PLATELET COUNT (test code = 162 x10 3/uL 150-400 N PLT) MEAN PLATELET VOLUME (test code 10.9 fL 7.0-9.0 H = MPV) NEUTROPHIL % (test code = NT%) 65.7 % 56.0-77.0 N IMMATURE GRANULOCYTE % (test 1.7 % 0.0-2.0 N code = IG%) LYMPHOCYTE % (test code = LY%) 10.6 % 14.0-32.0 L MONOCYTE % (test code = MO%) 9.5 % 4.8-9.0 H EOSINOPHIL % (test code = EO%) 11.7 % 0.3-3.7 H BASOPHIL % (test code = BA%) 0.8 % 0.0-2.0 N NUCLEATED RBC % (test code = 0.0 % 0-0 N NRBC%) NEUTROPHIL # (test code = NT#) 7.61 x10 3/uL 2.0-7.6 H IMMATURE GRANULOCYTE # (test 0.20 x10 3/uL 0.00-0.03 H code = IG#) LYMPHOCYTE # (test code = LY#) 1.23 x10 3/uL 1.0-3.8 N MONOCYTE # (test code = MO#) 1.10 x10 3/uL 0.1-0.8 H EOSINOPHIL # (test code = EO#) 1.35 x10 3/uL 0.0-0.2 H BASOPHIL # (test code = BA#) 0.09 x10 3/uL 0.0-0.2 N NUCLEATED RBC # (test code = 0.00 x10 3/uL 0.0-0.1 N NRBC#) MANUAL DIFF REQUIRED (test code NO = MDIFF) COVID 19 Asymptomatic IH [id number] 15:22:00 Test Item Value Reference Range Interpretation Comments COVID 19 Asymptomatic Negative Negative A nega tive result is IH AG (test code = presumpti ve and should COVNONPUIAG) be confirmedwit h an FDA authorized mole cular assay, if neces freida forpatient idalia gement.A positive result does not rule out co-inf ections withother patho gens.This test detects emerson th viable (live) and non-viable,SARS -CoV, and SARS-CoV-2. Marcie t performance dep ends on theamount of vi kathy (antigen) in th e sample.This marcie t has not been FDA cleare d or approved; the t est hasbeen authori zed by FDA under an Em ergency Use Authorizati on(EUA) for use by labo ratories certified under the CLIA thatmeet the requirements to perform moderate, high or waivedcomplexit y tests. BASIC METABOLIC [id number] 05:37:00 Test Item Value Reference Range Interpretation Comments SODIUM (test code = 143 mEq/L 134-147 N NA) POTASSIUM (test code 4.4 mEq/L 3.4-5.0 N = K) CHLORIDE (test code 112 mEq/L 100-108 H = CL) CARBON DIOXIDE (test 23 mEq/l 21-33 N code = CO2) ANION GAP (test code 12 0-20 N = GAP) GLUCOSE (test code = 93 mg/dL 70-110 N GLU) BLOOD UREA NITROGEN 36 mg/dL 7-18 H (test code = BUN) GLOMERULAR 12.9 70-80 L The Glomerular FILTRATION RATE Filtration R ate is a (test code = GFR) calculated parameterbased on serum Creatinine, pat ient age and sex. GFR va luesless than 60 mL/min/ 1.73 square meters a re indicative ofCh ronic Kidney Disease. Values less than 15 mL/min/1.73squa re meters indicate Kidney failure. The calculation forGFR is based on the CKD-EPI (2020) calculat ion. This formulais race indifferent and is the recommended for lucretia for GFRby the [facility] for Ad[facility].The GFR will not calculate if th e sex is unknown or if thepatient's ag e is <18 years. CREATININE (test 4.4 mg/dL 0.6-1.3 H code = CREAT) CALCIUM (test code = 8.4 mg/dL 8.0-10.5 N CA) [id number] 05:37:00 Test Item Value Reference Range Interpretation Comments PHOSPHOROUS (test code = PHOS) 3.9 MG/DL 2.5-4.9 N [id number] 05:37:00 Test Item Value Reference Range Interpretation Comments MAGNESIUM (test code = MAG) 1.75 mg/dL 1.80-2.40 L CBC W/AUTO [id number] 05:25:00 Test Item Value Reference Range Interpretation Comments WHITE BLOOD CELL (test code = 10.8 x10 3/uL 4.5-11.0 N WBC) RED BLOOD CELL (test code = 3.01 x10 6/uL 4.00-5.60 L RBC) HEMOGLOBIN (test code = HGB) 9.3 g/dL 12.5-16.9 L HEMATOCRIT (test code = HCT) 30.2 % 37.5-50.7 L MEAN CELL VOLUME (test code = 100.3 fL 81.0-99.0 H MCV) MEAN CELL HGB (test code = MCH) 30.9 pg 27.0-33.0 N MEAN CELL HGB CONCETRATION 30.8 g/dL 33.0-37.0 L (test code = MCHC) RED CELL DISTRIBUTION WIDTH CV 14.6 % 11.5-14.5 H (test code = RDW) RED CELL DISTRIBUTION WIDTH SD 53.8 fL 37.0-54.0 N (test code = RDW-SD) PLATELET COUNT (test code = 170 x10 3/uL 150-400 N PLT) MEAN PLATELET VOLUME (test code 10.4 fL 7.0-9.0 H = MPV) NEUTROPHIL % (test code = NT%) 62.9 % 56.0-77.0 N IMMATURE GRANULOCYTE % (test 1.4 % 0.0-2.0 N code = IG%) LYMPHOCYTE % (test code = LY%) 13.2 % 14.0-32.0 L MONOCYTE % (test code = MO%) 9.0 % 4.8-9.0 N EOSINOPHIL % (test code = EO%) 12.7 % 0.3-3.7 H BASOPHIL % (test code = BA%) 0.8 % 0.0-2.0 N NUCLEATED RBC % (test code = 0.0 % 0-0 N NRBC%) NEUTROPHIL # (test code = NT#) 6.81 x10 3/uL 2.0-7.6 N IMMATURE GRANULOCYTE # (test 0.15 x10 3/uL 0.00-0.03 H code = IG#) LYMPHOCYTE # (test code = LY#) 1.43 x10 3/uL 1.0-3.8 N MONOCYTE # (test code = MO#) 0.98 x10 3/uL 0.1-0.8 H EOSINOPHIL # (test code = EO#) 1.38 x10 3/uL 0.0-0.2 H BASOPHIL # (test code = BA#) 0.09 x10 3/uL 0.0-0.2 N NUCLEATED RBC # (test code = 0.00 x10 3/uL 0.0-0.1 N NRBC#) MANUAL DIFF REQUIRED (test code NO = MDIFF) [id number] 10:01:00 Test Item Value Reference Range Interpretation Comments MAGNESIUM (test code = MAG) 2.07 mg/dL 1.80-2.40 ACUTE HEPATITIS [id number] 08:13:00 Test Item Value Reference Range Interpretation Comments AB HEPATITIS A IGM (test NON REACTIVE INDEX NON REACT. code = HAVMAB) AG HEPATITIS B SURFACE NON REACTIVE INDEX NonReactive (test code = HBSAG) AB HEPATITIS B CORE IGM NON REACTIVE INDEX NON REACT. (test code = HBCMAB) AB HEPATITIS C (test code NON REACTIVE INDEX NON REACT. = HCVAB) AB HEPATITIS B [id number] 08:13:00 Test Item Value Reference Range Interpretation Comments AB HEPATITIS B 3.7 mIU/mL See_Comment L Status of Im munity SURFACE (test code = Anti-HB s Level HBSAB) --- I nconsis tent with Immun ity 0.0 - 9.9Consistent with Immunity >9.9Pe rformed At: [facility] [id number] [place], [place] [id number] Jesús Anderson MD Ph:[phone] [Automated mess age] The system [employer] generated this result transmitted ref erence range: Immunity >9.9. The reference r shree was not used to interpret this result as normal/abnor mal. BASIC METABOLIC [id number] 05:34:00 Test Item Value Reference Range Interpretation Comments SODIUM (test code = 142 mEq/L 134-147 N NA) POTASSIUM (test code 4.2 mEq/L 3.4-5.0 N = K) CHLORIDE (test code 110 mEq/L 100-108 H = CL) CARBON DIOXIDE (test 25 mEq/l 21-33 N code = CO2) ANION GAP (test code 12 0-20 N = GAP) GLUCOSE (test code = 89 mg/dL 70-110 N GLU) BLOOD UREA NITROGEN 53 mg/dL 7-18 H (test code = BUN) GLOMERULAR 10.1 70-80 L The Glomerular FILTRATION RATE Filtration R ate is a (test code = GFR) calculated parameterbased on serum Creatinine, pat ient age and sex. GFR va luesless than 60 mL/min/ 1.73 square meters a re indicative ofCh ronic Kidney Disease. Values less than 15 mL/min/1.73squa re meters indicate Kidney failure. The calculation forGFR is based on the CKD-EPI (2020) calculat ion. This formulais race indifferent and is the recommended for lucretia for GFRby the Nat nal Kidney Foundati on for Adults.The GFR will not calculate if th e sex is unknown or if thepatient's ag e is <18 years. CREATININE (test 5.4 mg/dL 0.6-1.3 H code = CREAT) CALCIUM (test code = 8.1 mg/dL 8.0-10.5 N CA) CBC W/AUTO [id number] 05:19:00 Test Item Value Reference Range Interpretation Comments WHITE BLOOD CELL (test code = 11.2 x10 3/uL 4.5-11.0 H WBC) RED BLOOD CELL (test code = 3.10 x10 6/uL 4.00-5.60 L RBC) HEMOGLOBIN (test code = HGB) 9.6 g/dL 12.5-16.9 L HEMATOCRIT (test code = HCT) 30.3 % 37.5-50.7 L MEAN CELL VOLUME (test code = 97.7 fL 81.0-99.0 N MCV) MEAN CELL HGB (test code = MCH) 31.0 pg 27.0-33.0 N MEAN CELL HGB CONCETRATION 31.7 g/dL 33.0-37.0 L (test code = MCHC) RED CELL DISTRIBUTION WIDTH CV 14.8 % 11.5-14.5 H (test code = RDW) RED CELL DISTRIBUTION WIDTH SD 53.1 fL 37.0-54.0 N (test code = RDW-SD) PLATELET COUNT (test code = 193 x10 3/uL 150-400 N PLT) MEAN PLATELET VOLUME (test code 10.8 fL 7.0-9.0 H = MPV) NEUTROPHIL % (test code = NT%) 61.6 % 56.0-77.0 N IMMATURE GRANULOCYTE % (test 1.8 % 0.0-2.0 N code = IG%) LYMPHOCYTE % (test code = LY%) 12.0 % 14.0-32.0 L MONOCYTE % (test code = MO%) 10.9 % 4.8-9.0 H EOSINOPHIL % (test code = EO%) 13.1 % 0.3-3.7 H BASOPHIL % (test code = BA%) 0.6 % 0.0-2.0 N NUCLEATED RBC % (test code = 0.0 % 0-0 N NRBC%) NEUTROPHIL # (test code = NT#) 6.89 x10 3/uL 2.0-7.6 N IMMATURE GRANULOCYTE # (test 0.20 x10 3/uL 0.00-0.03 H code = IG#) LYMPHOCYTE # (test code = LY#) 1.34 x10 3/uL 1.0-3.8 N MONOCYTE # (test code = MO#) 1.22 x10 3/uL 0.1-0.8 H EOSINOPHIL # (test code = EO#) 1.46 x10 3/uL 0.0-0.2 H BASOPHIL # (test code = BA#) 0.07 x10 3/uL 0.0-0.2 N NUCLEATED RBC # (test code = 0.00 x10 3/uL 0.0-0.1 N NRBC#) MANUAL DIFF REQUIRED (test code NO = MDIFF) BASIC METABOLIC [id number] 05:16:00 Test Item Value Reference Range Interpretation Comments SODIUM (test code = 143 mEq/L 134-147 N NA) POTASSIUM (test code 3.6 mEq/L 3.4-5.0 N = K) CHLORIDE (test code 112 mEq/L 100-108 H = CL) CARBON DIOXIDE (test 23 mEq/l 21-33 N code = CO2) ANION GAP (test code 12 0-20 N = GAP) GLUCOSE (test code = 94 mg/dL 70-110 N GLU) BLOOD UREA NITROGEN 45 mg/dL 7-18 H (test code = BUN) GLOMERULAR 9.9 70-80 L The Glomerular FILTRATION RATE Filtration R ate is a (test code = GFR) calculated parameterbased on serum Creatinine, pat ient age and sex. GFR va luesless than 60 mL/min/ 1.73 square meters a re indicative ofCh ronic Kidney Disease. Values less than 15 mL/min/1.73squa re meters indicate Kidney failure. The calculation forGFR is based on the CKD-EPI (2020) calculat ion. This formulais race indifferent and is the recommended for lucretia for GFRby the [facility] for Adults.The GFR will not calculate if th e sex is unknown or if thepatient's ag e is <18 years. CREATININE (test 5.5 mg/dL 0.6-1.3 H code = CREAT) CALCIUM (test code = 7.8 mg/dL 8.0-10.5 L CA) [id number] 05:16:00 Test Item Value Reference Range Interpretation Comments PHOSPHOROUS (test code = PHOS) 4.0 MG/DL 2.5-4.9 N [id number] 05:16:00 Test Item Value Reference Range Interpretation Comments MAGNESIUM (test code = MAG) 1.40 mg/dL 1.80-2.40 L CBC W/AUTO [id number] 05:09:00 Test Item Value Reference Range Interpretation Comments WHITE BLOOD CELL (test code = 9.7 x10 3/uL 4.5-11.0 N WBC) RED BLOOD CELL (test code = 3.11 x10 6/uL 4.00-5.60 L RBC) HEMOGLOBIN (test code = HGB) 9.5 g/dL 12.5-16.9 L HEMATOCRIT (test code = HCT) 30.1 % 37.5-50.7 L MEAN CELL VOLUME (test code = 96.8 fL 81.0-99.0 N MCV) MEAN CELL HGB (test code = MCH) 30.5 pg 27.0-33.0 N MEAN CELL HGB CONCETRATION 31.6 g/dL 33.0-37.0 L (test code = MCHC) RED CELL DISTRIBUTION WIDTH CV 15.3 % 11.5-14.5 H (test code = RDW) RED CELL DISTRIBUTION WIDTH SD 54.0 fL 37.0-54.0 N (test code = RDW-SD) PLATELET COUNT (test code = 182 x10 3/uL 150-400 N PLT) MEAN PLATELET VOLUME (test code 10.5 fL 7.0-9.0 H = MPV) NEUTROPHIL % (test code = NT%) 61.8 % 56.0-77.0 N IMMATURE GRANULOCYTE % (test 1.8 % 0.0-2.0 N code = IG%) LYMPHOCYTE % (test code = LY%) 12.1 % 14.0-32.0 L MONOCYTE % (test code = MO%) 10.8 % 4.8-9.0 H EOSINOPHIL % (test code = EO%) 12.8 % 0.3-3.7 H BASOPHIL % (test code = BA%) 0.7 % 0.0-2.0 N NUCLEATED RBC % (test code = 0.0 % 0-0 N NRBC%) NEUTROPHIL # (test code = NT#) 5.98 x10 3/uL 2.0-7.6 N IMMATURE GRANULOCYTE # (test 0.17 x10 3/uL 0.00-0.03 H code = IG#) LYMPHOCYTE # (test code = LY#) 1.17 x10 3/uL 1.0-3.8 N MONOCYTE # (test code = MO#) 1.04 x10 3/uL 0.1-0.8 H EOSINOPHIL # (test code = EO#) 1.24 x10 3/uL 0.0-0.2 H BASOPHIL # (test code = BA#) 0.07 x10 3/uL 0.0-0.2 N NUCLEATED RBC # (test code = 0.00 x10 3/uL 0.0-0.1 N NRBC#) MANUAL DIFF REQUIRED (test code NO = MDIFF) UR SODIUM [id number] 11:10:00 Test Item Value Reference Range Interpretation Comments UR SODIUM RANDOM 67 MEQ/L The Referen ce Range and (test code = SIMONE) Method Per formance specificationsh ave not been established for this fluid. The test result should be correlated into the clinical context forinte rpretation. UR PROTEIN [id number] 11:10:00 Test Item Value Reference Range Interpretation Comments UR PROTEIN RANDOM (test code = 129 mg/dL PROTU) UR CREATININE [id number] 11:10:00 Test Item Value Reference Range Interpretation Comments UR CREATININE 36.2 mg/dL The Reference Range and RANDOM (test code Method Per formance = CREATU) specificationsh ave not been establishe d for this fluid. The test resultshould be correlated into the clinical contex t forinterpretati on. UA RFLX MICR CULT IF [id number] 11:05:00 Test Item Value Reference Range Interpretation Comments UA COLOR (test code = COLU) YELLOW YEL/STRAW UA APPEARANCE (test code = CLEAR CLEAR APPU) UA GLUCOSE DIPSTICK (test code 1+ NEGATIVE A = DGLUU) UA BILIRUBIN DIPSTICK (test NEGATIVE NEGATIVE code = BILU) UA KETONE DIPSTICK (test code NEGATIVE NEGATIVE = KETU) UA SPECIFIC GRAVITY (test code 1.009 1.005-1.030 N = SGU) UA BLOOD DIPSTICK (test code = 2+ NEGATIVE A SUMI) UA PH DIPSTICK (test code = 7.0 5.0-7.0 N DONTA) UA PROTEIN DIPSTICK (test code 2+ NEGATIVE A = PROU) UA UROBILINIOGEN DIPSTICK 0.2 mg/dL 0.2-1.0 (test code = URO) UA NITRITE DIPSTICK (test code NEGATIVE NEGATIVE = ISAURA) UA LEUKOCYTE ESTERASE DIPSTICK 3+ NEGATIVE A (test code = LEUU) UA WBC (test code = WBCU) 21-50 WBC/HPF 0-3 A UA RBC (test code = RBCU) 21-50 RBC/HPF 0-3 UA WBC NO REFLEX (test code = 21-50 WBC/HPF 0-3 A WBCUCL) UA BACTERIA (test code = BACU) TRACE /HPF NONE SEEN UA SQUAMOUS CELLS (test code = NONE SEEN /HPF NONE SEEN SQU) UA MUCUS (test code = MUCU) TRACE /LPF NONE SEEN Indication for culture: Flank PainSpecimen Description: CLEAN [id number] 2022-07-03 10:50:00 Test Item Value Reference Range Interpretation Comments HGBA1C% (test code = HGBA1C%) 4.8 %A1C 4.8-6.0 N LIPID PROFILE (CORONARY RISK)2022-07-03 08:08:00 Test Item Value Reference Range Interpretation Comments TRIGLYCERIDES (test 119 mg/dL 40-150 N code = TRIG) CHOLESTEROL (test 119 mg/dL <200 code = CHOL) CHOLESTEROL/HDL 5.00 RATIO 3.43-4.97 H RISK ASSOCIA HUSSEIN WITH RATIO (test code = CHOL/HDL RATIOS: RISK CHOLHDL) MALE FEMALE1/2 AVERAGE 3.43 3.27AVERAG E 4.97 4.442X AVERAGE 9.55 7.053X AVERAGE 23.39 11.04 NOTE THAT THE REFERENCE VALUE IS RELATEDTO RISK LEVELS RECOMMENDED BY THE NATL.HEART, CHALINO G, AND BLOOD INST. HDL CHOLESTEROL < 20.0 mg/dL 32-72 L (test code = HDL) LIPOPROTEIN LDL 90.1 mg/dL 0-100 N <100 OPTIMAL 100-129 (test code = LDL) NEAR OPTIM AL/ABOVE [id number] 89 HIGH>YJ=043 ALIZA Y HIGH*Guidelines provided by the National Choles terol EducationProgra Adult Treatment Panel III THYROID STIMULATING [id number] 08:08:00 Test Item Value Reference Range Interpretation Comments THYROID STIMULATING 3.33 0.42-5.47 N Results in HORMONE (test code = TSH) mi lli-International Units/mL BASIC METABOLIC [id number] 08:08:00 Test Item Value Reference Range Interpretation Comments SODIUM (test code = 144 mEq/L 134-147 N NA) POTASSIUM (test code 3.3 mEq/L 3.4-5.0 L = K) CHLORIDE (test code 109 mEq/L 100-108 H = CL) CARBON DIOXIDE (test 22 mEq/l 21-33 N code = CO2) ANION GAP (test code 16 0-20 N = GAP) GLUCOSE (test code = 103 mg/dL 70-110 N GLU) BLOOD UREA NITROGEN 68 mg/dL 7-18 H (test code = BUN) GLOMERULAR 7.1 70-80 L The Glomerular FILTRATION RATE Filtration R ate is a (test code = GFR) calculated parameterbased on serum Creatinine, pat ient age and sex. GFR va luesless than 60 mL/min/ 1.73 square meters a re indicative ofCh ronic Kidney Disease. Values less than 15 mL/min/1.73squa re meters indicate Kidney failure. The calculation forGFR is based on the CKD-EPI (2020) calculat ion. This formulais race indifferent and is the recommended for lucretia for GFRby the Natio nal Kidney Foundati on for Adults.The GFR will not calculate if th e sex is unknown or if thepatient's ag e is <18 years. CREATININE (test 7.3 mg/dL 0.6-1.3 H code = CREAT) CALCIUM (test code = 8.0 mg/dL 8.0-10.5 N CA) HGBA1C%2022-07-03 08:04:00 Test Item Value Reference Range Interpretation Comments HGBA1C% (test code = HGBA1C%) 5.2 %A1C 4.8-6.0 N CBC W/AUTO [id number] 07:17:00 Test Item Value Reference Range Interpretation Comments WHITE BLOOD CELL (test code = 10.3 x10 3/uL 4.5-11.0 N WBC) RED BLOOD CELL (test code = 3.09 x10 6/uL 4.00-5.60 L RBC) HEMOGLOBIN (test code = HGB) 9.5 g/dL 12.5-16.9 L HEMATOCRIT (test code = HCT) 29.4 % 37.5-50.7 L MEAN CELL VOLUME (test code = 95.1 fL 81.0-99.0 N MCV) MEAN CELL HGB (test code = MCH) 30.7 pg 27.0-33.0 N MEAN CELL HGB CONCETRATION 32.3 g/dL 33.0-37.0 L (test code = MCHC) RED CELL DISTRIBUTION WIDTH CV 15.3 % 11.5-14.5 H (test code = RDW) RED CELL DISTRIBUTION WIDTH SD 53.3 fL 37.0-54.0 N (test code = RDW-SD) PLATELET COUNT (test code = 195 x10 3/uL 150-400 N PLT) MEAN PLATELET VOLUME (test code 10.7 fL 7.0-9.0 H = MPV) NEUTROPHIL % (test code = NT%) 67.3 % 56.0-77.0 N IMMATURE GRANULOCYTE % (test 1.0 % 0.0-2.0 N code = IG%) LYMPHOCYTE % (test code = LY%) 9.4 % 14.0-32.0 L MONOCYTE % (test code = MO%) 10.0 % 4.8-9.0 H EOSINOPHIL % (test code = EO%) 11.7 % 0.3-3.7 H BASOPHIL % (test code = BA%) 0.6 % 0.0-2.0 N NUCLEATED RBC % (test code = 0.0 % 0-0 N NRBC%) NEUTROPHIL # (test code = NT#) 6.93 x10 3/uL 2.0-7.6 N IMMATURE GRANULOCYTE # (test 0.10 x10 3/uL 0.00-0.03 H code = IG#) LYMPHOCYTE # (test code = LY#) 0.97 x10 3/uL 1.0-3.8 L MONOCYTE # (test code = MO#) 1.03 x10 3/uL 0.1-0.8 H EOSINOPHIL # (test code = EO#) 1.21 x10 3/uL 0.0-0.2 H BASOPHIL # (test code = BA#) 0.06 x10 3/uL 0.0-0.2 N NUCLEATED RBC # (test code = 0.00 x10 3/uL 0.0-0.1 N NRBC#) MANUAL DIFF REQUIRED (test code NO = MDIFF) - [facility]2023-01-26 00:00:00 [facility] : 1940 Sex: M Name: SHERRI ARCE [facility] [place] : 1940 Age/S: 81 / M [address] [place] [address] Unit #: [id number] Loc: CHERYL [place] [address] Phys: Evelina Plaza MD Acct: [id number] Dis Date: Status: ADM IN PHONE #: [phone] Exam Date: 07/03/2022 1207 FAX #: [phone] Reason: claudette EXAMS: CPT CODE: [id number] [employer] [id number] PROCEDURE INFORMATION: Exam: US Retroperitoneal; Complete; Kidneys and Bladder Exam date and time: 07/03/2022 11:22 AM Age: 81 years old Clinical indication: Other: Claudette TECHNIQUE: Imaging protocol: Real-time ultrasound of the retroperitoneum with image documentation. Complete exam focused on the kidneys and bladder. COMPARISON: CT CHEST W/O CONTRAST 06/28/2022 7:38 PM FINDINGS: G allbladder: The multiple echogenic foci with comet tail artifact at the gallbladder fundus, likely represent adenomyomatosis. This shadowing gallstone in the gallbladder. Right kidney: Measures 10.6 cm.There is severe right hydronephrosis with cortical thinning. Left kidney: Measures 14.6 cm.There is severe left hydronephrosis with cortical thinning. Intraperitoneal space: No ascites. Urinary bladder: There is diffuse severe thickening of the urinary bladder wall with Waters catheter in place. IMPRESSION: 1. Bilateral severe hydronephrosis. 2. Severe thickening of the urinary bladder wall with a Waters catheter in place. 3. 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 4. Cholelithiasis at 1551 Reported and signed by: Cherelle Mata M.D. CC: Evelina Plaza MD; Los Crawford DO Technologist: Goran Art Trnmib Date/Time: 07/03/2022 (1551) [email or web address] Orig Print D/T: S: 07/03/2022 (7622) Probe: PAGE 1 Signed Report- DUP EXTRACRANIAL [id number] 00:00:00 [facility] : 1940 Sex: M Name: SHERRI ARCE [facility] [place] : 1940 Age/S: 81 / M [address] [place] [address] Blvd Unit #: [id number] Loc: CHERYL Fletcher [address] Phys: Gianna Hoover ELHAM Acct: [id number] Dis Date: Status: ADM IN PHONE #: [phone] Exam Date: 07/03/2022 1208 FAX #: [phone] Reason: PRE CABG WORKUP EXAMS: CPT CODE:[id number] DUP EXTRACRANIAL WOJCIECH 15063 PROCEDURE INFORMATION: Exam: US Duplex Bilateral Extracranial Arteries, Carotid Arteries Exam date and time: 07/03/2022 11:14 AM Age: 81 years old Clinical indication: Screening exam; Additional info: Pre cabg workup TECHNIQUE: Imaging protocol: Real-time Duplex ultrasound scan of the bilateral carotid and vertebral arteries combining cleary scale, color Doppler and spectral waveform analysis. Bilateral exam. Exam focused on the carotid arteries. COMPARISON: CT CHEST W/O CONTRAST 06/28/2022 7:38 PM FINDINGS: Atherosclerotic plaques are present along both carotid bifurcations. Right common carotid artery: No occlusion or stenosis. Waveforms are normal. Right internal carotid artery: No occlusion or stenosis. Waveforms are normal. Right ICA/CCA ratio: Within normallimits. Right external carotid artery: No stenosis in the origin. Right vertebral artery: Antegrade flow. Left common carotid artery: No occlusion or stenosis. Waveforms are normal. Left internal carotid artery: No occlusion or stenosis. Waveforms are normal. Left ICA/CCA ratio: Within normal limits. Left external carotid artery: No stenosis in the origin. Left vertebral artery: Antegrade flow. IMPRESSION: No flow-limiting proximal internal carotid arterial stenosis. REFERENCES: SRU CRITERIA. The degree of internal carotid artery stenosis is based on criteria defined by the Society of Radiologists in Ultrasound (SRU). Normal is no stenosis. Mild is less than 50% stenosis. Moderate is 50-69% stenosis. Severe is greater than 69% stenosis to near occlusion. Near occlusion is a markedly narrowed lumen. Total occlusion is no detectable patent lumen. at 1255 Reported and signed by: Brett Berry M.D. PAGE 1 Signed Report (CONTINUED) Name: SHERRI ARCE : 1940 Age/S: 81 / M [address] [facility] Unit #: [id number] Loc: CHERYL Fletcher [address] Phys: Gianna Hoover Acct: [id number] Dis Date: Status: ADM IN PHONE #: [phone] Exam Date: 07/03/2022 1208 FAX #: [phone] Reason: PRE CABG WORKUP EXAMS: CPT CODE: [id number] DUP EXTRACRANIAL WOJCIECH [id number] (Continued) CC: Los Crawford DO; Gianna LIZARRAGA Technologist: Goran Art Trnmib Date/Time: 07/03/2022 (125) [email or web address] Orig Print D/T:S: 07/03/2022 (1256) Probe: PAGE 2 Signed Report- CT CHEST W/O [id number] 00:00:00 [facility]ERName: SHERRI ARCE : 1940 Sex: M Name: [facility] 1940 Age/S: 81 / M [address] [place] [address] Unit #: [id number] Loc: FletcherCHERYL [address] Phys: Gianna Hoover Acct: [id number] Dis Date: Status: ADM IN PHONE #: [phone] Exam Date: 07/03/2022 1227 FAX #: [phone] Reason: PRE CABG WORKUP EXAMS: CPT CODE: [id number] CT CHEST W/O CONTRAST 20805 PROCEDURE INFORMATION: Exam: CT Chest Without Contrast; Diagnosti c Exam date and time: 07/03/2022 11:54 AM Age: 81 years old Clinical indication: Other: Pre cabg workup TECHNIQUE: Imaging protocol: Diagnostic computed tomography of the chest without contrast. Radiation optimization: All CT scans at this facility use at least one of these dose optimization techniques: automated exposure control; mA and/or kV adjustment per patient size (includes targeted exams wheredose is matched to clinical indication); or iterative reconstruction. Other protocol: This patient has received 2 known CTs and 0 known cardiac nuclear medicine studies in the 12 months prior to the current study. COMPARISON: CT CHEST W/O CONTRAST 06/28/2022 7:38 PM FINDINGS: Lungs: See "Pleural spaces" finding. Pleural spaces: Small bilateral pleural effusions with bibasilar atelectasis are noted. Heart: Small pericardial effusion is noted. Coronary arteries: Coronary artery calcifications are noted. Lymph nodes: Calcified right hilar lymph nodes are seen. Vasculature: Aortic annular and thoracic aortic calcifications are present. No thoracic aortic aneurysm is seen. Bones/joints: Degenerative changes of the thoracic spine are seen. Soft tissues: Unremarkable. IMPRESSION: Small bilateral pleural effusions with bibasilar atelectasis. at 1313 Reported and signed by: Ranjan Boo M.D. CC: Los Crawford DO; Gianna LIZARRAGA Technologist:Facundo Ervin, RT(R)(CT) CTDI: DLP: Trnscb Date/Time: 07/03/2022 (1313) Kourtney Orig Print D/T: S: 07/03/2022 (1313) PAGE 1 Signed Report- DUP VEIN [id number] 00:00:00 [facility] : 1940 Sex: M Name: SHERRI ARCE [facility] [place] : 1940 Age/S: 81 / M [address] [place] [address] Blvd Unit #: [id number] Loc: [place] [address] Phys: Gianna Hoover Acct: [id number] Dis Date: Status: ADM IN PHONE #: [phone] Exam Date: 07/03/2022 1207 FAX #: [phone] Reason: VEIN MAPPING AND R/O DVT EXAMS: CPT CODE: [id number] DUP VEIN WOJCIECH 84685 PROCEDURE INFORMATION: Exam: US Duplex Lower Extremity Veins; V ein mapping Exam date and time: 07/03/2022 11:32 AM Age: 81 years old Clinical indication: Screening exam; Pre op; Additional info: Vein mapping and R/O dvt TECHNIQUE: Imaging protocol: Real-time duplexultrasound of the extremities with 2-D cleary scale, color Doppler flow and spectral waveform analysisincluding responses to compression and other maneuvers (when performed) with image documentation. Complete exam focused on the bilateral lower extremity veins for vein mapping. COMPARISON: No relevant prior studies available. FINDINGS: Right superficial veins: The right greater saphenous vein measures0.24 mm in the upper thigh, 0.22 mm in the mid thigh, 0.20 mm in the lower thigh, 0.17 mm in the uppe r calf, 0.21 mm in the mid calf, and 0.17 mm in the distal calf. Left superficial veins: The left greater saphenous vein measures 0.27 mm in the upper thigh, 0.29 mm in the mid thigh, 0.30 mm in the lower thigh, 0.23 mm in the upper calf, 0.24 mm in the mid calf, and 0.19 mm in the distal calf. Soft t issues: Unremarkable. IMPRESSION: 1. The right greater saphenous vein measures 0.24 mm in the upperthigh, 0.22 mm in the mid thigh, 0.20 mm in the lower thigh, 0.17 mm in the upper calf, 0.21 mm in the mid calf, and 0.17 mm in the distal calf. 2. The left greater saphenous vein measures 0.27 mm in the upper thigh, 0.29 mm in the mid thigh, 0.30 mm in the lower thigh, 0.23 mm in the upper calf, 0.24mm in the mid calf, and 0.19 mm in the distal calf. at 1326 Reported and signed by: Arely Brown M.D. CC: Los Crawford DO; Gianna LIZARRAGA Technologist: Gor[facility] Date/Time: 07/03/2022 (1325) Destiny [email or web address] Orig Print D/T: S: 07/03/2022 (1325) Probe: PAGE 1 Signed Report- XR CHEST 1 [id number] 00:00:00 [facility] : 1940 Sex: M FAX: Los Maldonado [phone] [place]: St: [facility] FAX: Sarbjit Sherman [phone] Name: SHERRI ARCE [facility] : 1940 Age/S: 81/M [address] [place] [address] Unit #: [id number] Loc: G.33[address] [place] [address] Phys: Sarbjit Mcarthur MD Acct: [id number] Dis Date: Status: ADM IN PHONE #: [phone] Exam Date: 07/02/20222144 FAX #: [phone] Reason: pre-op,cabg EXAMS: CPT CODE: [id number] XR CHEST 1 V 91376 PROCEDURE INFORMATION: Exam: XR Chest Exam date and time: 07/02/2022 9:34 PM Age: 81 years oldClinical indication: Pre-operative exam; Cardiovascular screening and respiratory screening exam; Additional info: Pre-op, cabg TECHNIQUE: Imaging protocol: Radiologic exam of the chest. Views: 1 view. COMPARISON: No relevant prior studies available. FINDINGS: Lungs: Nonspecific bibasilar opacities are present. Pleural spaces: Tiny bilateral pleural effusions. Heart/Mediastinum: No cardiomegaly. Bones/joints: No acute abnormality. IMPRESSION: 1. Nonspecific bibasilar opacities may represent atelectasis, edema, and/or pneumonia. 2. Tiny bilateral pleural effusions. at 0308 Reported and signed by: Jermaine Pope M.D. CC: Los Crawford DO; Sarbjit Mcarthur MD Technologist: RT Mary(Taniya) Trnscrd Date/Time/By: 07/03/2022 (307) : By: [email or web address] Orig Print D/T: S: 07/03/2022 (307) PAGE 1 Signed Report
[2022-07-31 22:45] LABS: Urine Bacteria None Seen /HPF (<20); Urine RBC >50 /HPF (None Seen)
--- NOTE | 2022-07-31 23:18 | EDPHYS ---
Physician Documentation [facility] Name: Rio Strauss Age: 81 yrs Sex: Male : 1940 Arrival Date: 07/31/2022 Time: 21:03 Bed 8 Private MD: ED Physician Lee Mancia HPI: 07/31 21:22 This 81 yrs old Male presents to ER via EMS with complaints of unable to urinate. rn 21:22 The patient presents with urinary symptoms, retention, unable to void, Last void was rn this morning. Onset: The symptoms/episode began/occurred this morning. Modifying factors: The symptoms are alleviated by nothing, the symptoms are aggravated by nothing. Associated signs and symptoms: Pertinent positives: hematuria, Pertinent negatives: fever. Severity of symptoms: At their worst the symptoms were moderate, in the emergency department the symptoms are unchanged. The patient has not experienced similar symptoms in the past. The patient has been recently seen by a physician:. Pt reports unable to urinate since this AM. Has rowe cather for last 3 weeks following cardiac bypass, taking blood thinner, having blood in urine. No abd pain. No fever. NO vomiting. NO chest pain or sob. . Historical: - Allergies: 21:03 No Known Allergies; as6 - Home Meds: 22:59 atorvastatin Oral [Active]; lisinopril Oral [Active]; kd3 - PMHx: 21:03 Hyperlipidemia; Hypertension; dialysis; as6 - PSHx: 21:03 bypass; as6 - Immunization history:: Client reports receiving the 2nd dose of the Covid vaccine, pfizer Pneumococcal vaccine is up to date, Flu vaccine is up to date. - Social history:: Smoking status: Patient/guardian denies using tobacco, but has a distant history of tobacco abuse. - Family history:: not pertinent. - Hospitalizations: : No recent hospitalization is reported. ROS: 21:22 Constitutional: Negative for fever, chills, and weight loss, Eyes: Negative for injury, rn pain, redness, and discharge, Cardiovascular: Negative for chest pain, palpitations, and edema, Respiratory: Negative for shortness of breath, cough, wheezing, and pleuritic chest pain, Abdomen/GI: Negative for abdominal pain, nausea, vomiting, diarrhea, and constipation, Back: Negative for injury and pain, : + unable to urinate MS/Extremity: Negative for injury and deformity, Skin: Negative for injury, rash, and discoloration, Neuro: Negative for headache, weakness, numbness, tingling, and seizure. Exam: 21:22 Constitutional: This is a well developed, well nourished patient who is awake, alert, rn and in no acute distress. Cardiovascular: Regular rate and rhythm. No pulse deficits. Respiratory: No increased work of breathing, no retractions or nasal flaring. Abdomen/GI: soft, non-tender Male : rowe catheter in place with hematuria in bag Skin: Warm, dry MS/ Extremity: Pulses equal, no cyanosis. Neuro: Awake and alert, GCS 15 Vital Signs: 21:04 BP 119 / 52; Pulse 89; Resp 18 S; Temp 100.3(O); Pulse Ox 96% on R/A; Weight 84.82 kg as6 (R); Height 6 ft. 0 in. (182.88 cm) (R); Pain 0/10; 23:01 BP 128 / 61; Pulse 81; Resp 19; Pulse Ox 92% on R/A; kd3 21:04 Body Mass Index 25.36 (84.82 kg, 182.88 cm) as6 MDM: 21:05 Patient medically screened. rn 23:16 Differential diagnosis: UTI, urinary retention, Rowe catheter problem. Data reviewed: rn vital signs, nurses notes, lab test result(s), and as a result, I will discharge patient. Counseling: I had a detailed discussion with the patient and/or guardian regarding: the historical points, exam findings, and any diagnostic results supporting the discharge/admit diagnosis, lab results, the need for outpatient follow up, to return to the emergency department if symptoms worsen or persist or if there are any questions or concerns that arise at home. Response to treatment: the patient's symptoms have markedly improved after treatment, and as a result, I will discharge patient. Special discussion: I discussed with the patient/guardian in detail that at this point there is no indication for admission to the hospital. It is understood, however, that if the symptoms persist or worsen the patient needs to return immediately for re-evaluation. Based on the history and exam findings, there is no indication for further emergent testing or inpatient evaluation. I discussed with the patient/guardian the need to see the primary care provider for further evaluation of the symptoms. I discussed with the patient/guardian the need to see the urologist for further evaluation of the symptoms. ED course: New rowe catheter placed by nurse, irrigated until urine clear, possible UTI, will dc home with abx and urology f/u. . 07/31 21:13 Order name: Urine Culture rn 07/31 21:13 Order name: Urine Microscopic Only rn 07/31 21:13 Order name: Bladder Irrigation; Complete Time: 21:57 rn 07/31 21:13 Order name: Urine Dipstick-Ancillary (obtain specimen); Complete Time: 22:56 rn 07/31 22:46 Order name: Urine Microscopic Only; Complete Time: 23:10 EDMS Administered Medications: No medications were administered Disposition Summary: 07/31/22 23:17 Discharge Ordered Location: Home rn Problem: new rn Symptoms: have improved rn Condition: Stable rn Diagnosis - Mechanical complication of urinary (indwelling) catheter rn - UTI/ Urinary tract infection, site not specified rn - Retention of urine, unspecified rn Followup: rn - With: Private Physician - When: As needed - Reason: Recheck today's complaints, Re-evaluation by your physician Discharge Instructions: - Discharge Summary Sheet rn - Indwelling Urinary Catheter Care, Adult rn - Acute Urinary Retention, Male rn - Urinary Tract Infection, Adult rn Forms: - Medication Reconciliation Form rn - Thank You Letter rn - Antibiotic 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 Cardiovascular: Regular rate and rhythm. No pulse deficits. Respiratory: No increased work of breathing, no retractions or nasal flaring. Abdomen/GI: soft, non-tender Skin: Warm, dry MS/ Extremity: Pulses equal, no cyanosis. Neuro: Awake and alert, GCS 15 rn
--- NOTE | 2022-07-31 23:18 | ER ---
Nurse's Notes [facility] Name: Rio Strauss Age: 81 yrs Sex: Male : 1940 Arrival Date: 07/31/2022 Time: 21:03 Bed 8 Private MD: Diagnosis: Mechanical complication of urinary (indwelling) catheter;UTI/ Urinary tract infection, site not specified;Retention of urine, unspecified Presentation: 07/31 21:04 Chief complaint: EMS states: pt has a urinary catheter and emptied it at 0500 am today as6 and has had decreased output and blood tinged urine. Coronavirus screen: At this time, the client does not indicate any symptoms associated with coronavirus-19. Ebola Screen: No symptoms or risks identified at this time. Initial Sepsis Screen: Does the patient meet any 2 criteria? No. Patient's initial sepsis screen is negative. Does the patient have a suspected source of infection? No. Patient's initial sepsis screen is negative. Risk Assessment: Do you want to hurt yourself or someone else? Patient reports no desire to harm self or others. Onset of symptoms was July 31, 2022. 21:04 Acuity: SHI 3 as6 21:04 Method Of Arrival: EMS: [facility] as6 Historical: - Allergies: 21:03 No Known Allergies; as6 - Home Meds: 22:59 atorvastatin Oral [Active]; lisinopril Oral [Active]; kd3 - PMHx: 21:03 Hyperlipidemia; Hypertension; dialysis; as6 - PSHx: 21:03 bypass; as6 - Immunization history:: Client reports receiving the 2nd dose of the Covid vaccine, pfizer Pneumococcal vaccine is up to date, Flu vaccine is up to date. - Social history:: Smoking status: Patient/guardian denies using tobacco, but has a distant history of tobacco abuse. - Family history:: not pertinent. - Hospitalizations: : No recent hospitalization is reported. Screenin:59 [facility] ED Fall Risk Assessment (Adult) History of falling in the last 3 months, kd3 including since admission No falls in past 3 months (0 pts) Confusion or Disorientation No (0 pts) Intoxicated or Sedated No (0 pts) Impaired Gait No (0 pts) Mobility Assist Device Used No (0 pt) Altered Elimination No (0 pt) Score/Fall Risk Level 0 - 2 = Low Risk Maintained a safe environment. Abuse screen: Denies threats or abuse. Denies injuries from another. Nutritional screening: No deficits noted. Tuberculosis screening: No symptoms or risk factors identified. Assessment: 21:00 General: Appears in no apparent distress. Behavior is calm, cooperative. Pain: Denies as6 pain. : Urine is blood tinged, Reports inability to void, since 0500 AM. 22:57 General: irrigated Waters catheter with 350 cc of saline until light pink fluid kd3 returned. several small clots noted. . Pain: Denies pain. Neuro: Level of Consciousness is awake, alert, obeys commands, Oriented to person, place, time, situation. Respiratory: Airway is patent Trachea midline Respiratory effort is even, unlabored, Respiratory pattern is regular, symmetrical. Vital Signs: 21:04 BP 119 / 52; Pulse 89; Resp 18 S; Temp 100.3(O); Pulse Ox 96% on R/A; Weight 84.82 kg as6 (R); Height 6 ft. 0 in. (182.88 cm) (R); Pain 0/10; 23:01 BP 128 / 61; Pulse 81; Resp 19; Pulse Ox 92% on R/A; kd3 21:04 Body Mass Index 25.36 (84.82 kg, 182.88 cm) as6 ED Course: 21:03 Patient arrived in ED. as6 21:03 Arm band placed on. as6 21:05 Lee Mancia MD is Attending Physician. rn 21:06 Triage completed. as6 21:49 Otoniel Saucedo, JENISE is Primary Nurse. as6 21:56 Waters cath inserted, using sterile technique, 16 Fr., by ca, balloon inflated, to kd3 gravity drainage. 22:59 Patient has correct armband on for positive identification. Placed in gown. Bed in low kd3 position. Call light in reach. 22:59 Cleaned of incontinence. Linen changed. kd3 23:28 No provider procedures requiring assistance completed. as6 23:36 IV discontinued, intact, bleeding controlled, No redness/swelling at site. Pressure as6 dressing applied. Administered Medications: No medications were administered Medication: 22:59 VIS not applicable for this client. kd3 Outcome: 23:17 Discharge ordered by . rn 23:28 Discharged to home ambulatory. as6 23:28 Condition: stable 23:28 Discharge instructions given to patient, Instructed on discharge instructions, follow up and referral plans. medication usage, Demonstrated understanding of instructions, follow-up care, medications, Prescriptions given X 1. 23:37 Patient left the ED. as6 Addendum: 08/03/2022 10:10 Addendum: Culture Results: Positive urine culture. Bacteria is resistant to, has a a5 intermediate sensitivity, or is not tested against prescribed antibiotics. Report given to FATIMAH for further evaluation and then to lawn mower mechanic for follow up with patient. Prescription called-in to pharmacy of choice. to [facility] pharmacy in [place], [place] per pt's request, called in Bactrim DS BID x 7 days per Anna Mojica NP. Pt was also instructed to stop cephalexin per LEAKAGE TESTER, pt verbalized understanding. Signatures: Lee Mancia MD MD rn Calderon, Audri, RN RN aa5 Otoniel Saucedo RN RN as6 Sarah Hanna RN RN kd3
[2022-08-01 00:54] VITALS: TEMP 100.3
[2022-08-01 00:55] VITALS: BP 128/61; O2SAT 92
== END 2022-07-31 23:37 | disposition home or self-care (01) ==
LOC: ER 20:57
DX: T83.098A Other mechanical complication of other urinary catheter, initial encounter (principal); N39.0 Urinary tract infection, site not specified; R33.9 Retention of urine, unspecified; I10 Essential (primary) hypertension; Z99.2 Dependence on renal dialysis; Z95.1 Presence of aortocoronary bypass graft
CPT/HCPCS: 51702; 81015; 87077; 87086; 87088; 87186; 99284

== ENCOUNTER 2022-08-06 10:01 | Observation (INO) | payer OTHER ==
--- OUTSIDE RECORDS SUMMARY | 2022-08-06 10:10 | XMS REPORT | Continuity of Care Document ---
:1940 Author Organization [facility] t Address [address] [facility]. [address] [place] [address] Care Team Providers Name Role Phone CHRETIEN_F Attending Clinician Unavailable Srinath Kaur Attending Clinician Unavailable Santana-Mbayo_A_AH Attending Clinician Unavailable CHRETIEN_F Admitting Clinician Unavailable Jesus Larson Admitting Clinician Unavailable Santana-Mbayo_A_AH Admitting Clinician Unavailable Payers Payer Name Policy Type Policy Number Effective Date Expiration Date S kane [employer] [place] [id number] (MEDICARE REPLACEMENT/ADVANT AGE - HMO) [employer] [place] - [id number] 2019 [employer] 00:00:00 (MEDICARE REPLACEMENT/ADVANT AGE - HMO) Problems This patient has no known problems. Allergies, Adverse Reactions, Alerts Allergy Allergy Status Severity Reaction(s) Onset Inactive Treating Comm ents Source Name Type Date Date Clinician No Known DA Active U [facility]ie 1-25 Clear s 00:00: Guerrier [address] [place] [address] Medications This patient has no known medications. Procedures Procedure Date / Time Performed Performing Clinician Macrina peña [id number] 2022-07-28 00:00:00 ALTMU DEANDRA [facility] [id number] 2022-07-26 00:00:00 [facility]U [facility] [id number] 2022-07-25 00:00:00 ALTMU DEANDRA [facility] [id number] 2022-07-23 00:00:00 [facility] [id number] 2022-07-21 00:00:00 [facility]U [facility] [id number] 2022-07-18 00:00:00 [facility] [id number] 2022-07-16 00:00:00 ALTMU [facility] [id number] 2022-07-15 00:00:00 CHAAB.01 [facility] [id number] 2022-07-15 00:00:00 CHAAB.01 [facility] [id number] 2022-07-15 00:00:00 CHAAB.01 [facility] [id number] 2022-07-15 00:00:00 ALTMU [facility] [id number] 2022-07-14 00:00:00 KYRPO [facility] [id number] 2022-07-12 00:00:00 ALTMU [facility] [id number] 2022-07-08 00:00:00 CHAAB.01 [facility] [id number] 2022-07-08 00:00:00 CHAAB.01 [facility] [id number] 2022-07-08 00:00:00 CHAAB.01 [facility] [id number] 2022-07-08 00:00:00 CHAAB.01 [facility] [id number] 2022-07-08 00:00:00 CHAAB.01 [facility] [id number] 2022-07-08 00:00:00 CHAAB.01 [facility] [id number] 2022-07-08 00:00:00 CHAAB.01 [facility] [id number] 2022-07-08 00:00:00 CHAAB.01 [facility] [id number] 2022-07-08 00:00:00 CHAAB.01 [facility] [id number] 2022-07-08 00:00:00 CHAAB.01 [facility] [id number] 2022-07-07 00:00:00 ALTMU [facility] [id number] 2022-07-06 00:00:00 ALTMU [facility] [id number] 2022-07-05 00:00:00 ALTMU [facility] [id number] 2022-07-04 00:00:00 ALTMU [facility] [id number] 2022-07-03 00:00:00 ALTMU [facility] [id number] 2022-07-02 00:00:00 RAMED [facility] Encounters Start End Encounter Admission Attending Care Care Encounter Source Date/Time Date/Time Type Type Clinicians Facility Department ID 2022-07-29 2022-07-29 Outpatient CHRETIEN_F [facility] [address] [place] 00:00:00 00:00:00 [facility] 2022-07-02 2022-07-28 Inpatient UR Vu, Srinath HCACL INTE [id number] [facility] 18:38:00 17:36:00 47 [facility] 2019-07-27 2019-07-27 Outpatient Jonh [facility] [id number] [facility] 07:29:00 07:29:00 _A_AH [address] Family Pract[facility] e Results Test Description Test [...] code = CA) 8.6 mg/dL 8.0-10.5 N [id number] 07:59:00 Test Item Value Reference Range Interpretation Comments MAGNESIUM (test code = MAG) 1.91 mg/dL 1.80-2.40 N CBC W/AUTO [id number] 06:58:00 Test Item Value Reference Range Interpretation [...] (test code NO = MDIFF) BASIC METABOLIC [id number] 08:27:00 Test Item Value Reference Range Interpretation [...] the recommended for lucretia for GFRby the [facility]ney Found[facility] on for Adults.The GFR will not calculate if th e sex is unknown or if thepatient's ag e is <18 years. CREATININE (test 3.4 mg/dL 0.6-1.3 H code = CREAT) CALCIUM (test code = 8.8 mg/dL 8.0-10.5 N CA) CBC W/AUTO [id number] 08:23:00 Test Item Value Reference Range Interpretation [...] DIFF REQUIRED (test code NO = MDIFF) [id number] 08:14:00 Test Item Value Reference Range Interpretation Comments MAGNESIUM (test code = MAG) 2.00 mg/dL 1.80-2.40 N - XR CHEST 1 [id number] 00:00:00 [facility] 1940 Sex: M FAX: Los Maldonado [phone] [place]: St: ADM FAX: Lina Rivera [phone] FAX: Jesus Rebolledo MD [phone] Name: SHERRI ARCE [facility] : 1940 Age/S: 81/M [address] [place] [address] Unit #: [id number] Loc: G.3354 [place] [address] Phys: Lina Schwarz MD Acct: [id number] Dis Date: Status: ADM IN PHONE #: [phone] Exam Date: 07/27/2022702 FAX #: [phone] Reason: R/O PLEURAL EFFUSION EXAMS: CPT CODE: [id number] XR CHEST 1 V 16808 PROCEDURE INFORMATION: Exam: XR Chest Exam date [...] bilateral pleural effusions. at 0821 Reported and signed by: Herb Strong M.D. CC: Los Crawford DO; Lina Schwarz MD; Jesus Larson MD Technologist: Isidro Jarquin; Elaina Reeves RT(R) Trnscrd Date/Time/By: 07/27/2022 (820) : By: Sudhir Orig Print D/T: S: 07/27/2022 (820) PAGE 1 Signed ReportUR CREATININE CLEARANCE 24HR 2022-07-26 11:10:00 Test Item Value Reference Range Interpretation [...] GM/24HR 1.0-1.6 L 24HR (test code = UDTW69Y) UR VOLUME (test 2050 mL code = VOL) UR COLLECTION 1440 MIN TIME (test code = COLTM) UR UREA NITROGEN [id number] 11:10:00 Test Item Value Reference Range Interpretation Comments UR UREA NITROGEN 178 mg/dL Not Estab. Performed A t: HD RANDOM (test code = [facility] [id number] UUN) [place], [place] [id number] terrance Anderson MD Ph:[phone] eviously reported result : 178 mg/dLEdited by: FARRAH on 07/26/22:844609 1110: UR UREA N IT RAN previously repo rted as: 178 mg/dL Perfo rmed At: [facility] ton [address] [place], [place] [id number] Jaclyn Anderson MD Ph:[phone] UR UREA NITROGEN 24HR 4 g/24 hr 4-16 Perfor med At: HD (test code = UUN24T) [facility] Metzptz2197 [place], [place] [id number] terrance Anderson MD Ph:[phone] [id number] 04:43:00 Test Item Value Reference Range Interpretation Comments MAGNESIUM (test code = MAG) 1.76 mg/dL 1.80-2.40 L BASIC METABOLIC [id number] 04:41:00 Test Item Value Reference Range Interpretation [...] 8.3 mg/dL 8.0-10.5 N CA) CBC W/AUTO [id number] 04:19:00 Test Item Value Reference Range Interpretation [...] NO = MDIFF) - XR CHEST 1 [id number] 00:00:00 [facility] : 1940 Sex: M FAX: Los Maldonado [phone] [place]: St: ADM FAX: Lina Rivera [phone] FAX: Srinath Smith MD [phone] Name: SHERRI ARCE [facility] : 1940 Age/S: 81/M [address] [place] [address] Unit #: [id number] Loc: G.3354 [place] [address] Phys: Lina Schwarz MD Acct: [id number] Dis Date: Status: ADM IN PHONE #: [phone] Exam Date: 07/26/2022 0645 FAX #: [phone] Reason: R/O PLEURAL EFFUSION EXAMS: CPT CODE: [id number] XR CHEST 1 V 60846 PROCEDURE INFORMATION: Exam: XR Chest Exam date [...] is status post median sternotomy. Enlarged cardiac silhoue tte and mediastinal structures are stable including aortic calcification. IMPRESSION: Bibasilar consolidation and left perihilar opacity with bilateral pleural effusions similar to prior study. at 1450 Reported and signed by: Maryam Alonzo M.D. CC: Los Crawford DO; Lina Schwarz MD; Srinath Kaur MD Technologist: Isidro Jarquin; Elaina Reeves RT(R) Trnscrd Date/Time/By: 07/26/2022 (280) : By: [email or web address] Print D/T: S: 07/26/2022 (3338) PAGE 1 Signed [id number] 08:32:00 Test Item Value Reference Range Interpretation Comments MAGNESIUM (test code = MAG) 1.87 mg/dL 1.80-2.40 N CBC W/AUTO [id number] 07:46:00 Test Item Value Reference Range Interpretation [...] (test code NO = MDIFF) BASIC METABOLIC [id number] 07:38:00 Test Item Value Reference Range Interpretation [...] 8.7 mg/dL 8.0-10.5 N CA) BASIC METABOLIC [id number] 08:00:00 Test Item Value Reference Range Interpretation [...] code = 8.4 mg/dL 8.0-10.5 N CA) [id number] 07:59:00 Test Item Value Reference Range Interpretation Comments MAGNESIUM (test code = MAG) 1.87 mg/dL 1.80-2.40 N CBC W/AUTO [id number] 06:08:00 Test Item Value Reference Range Interpretation [...] (test code NO = MDIFF) BASIC METABOLIC [id number] 08:15:00 Test Item Value Reference Range Interpretation [...] the recommended for lucretia for GFRby the [facility] Kidney Foundati on for Adults.The GFR will not calculate if th e sex is unknown or if thepatient's ag e is <18 years. CREATININE (test 4.1 mg/dL 0.6-1.3 H code = CREAT) CALCIUM (test code = 8.5 mg/dL 8.0-10.5 N CA) [id number] 08:10:00 Test Item Value Reference Range Interpretation Comments MAGNESIUM (test code = MAG) 2.00 mg/dL 1.80-2.40 N CBC W/AUTO [id number] 07:45:00 Test Item Value Reference Range Interpretation [...] DIFF REQUIRED (test code NO = MDIFF) [id number] 04:27:00 Test Item Value Reference Range Interpretation Comments MAGNESIUM (test code = MAG) 2.00 mg/dL 1.80-2.40 N BASIC METABOLIC [id number] 04:05:00 Test Item Value Reference Range Interpretation [...] 8.1 mg/dL 8.0-10.5 N CA) CBC W/AUTO [id number] 03:57:00 Test Item Value Reference Range Interpretation [...] DIFF REQUIRED (test NO code = MDIFF) [id number] 08:08:00 Test Item Value Reference Range Interpretation Comments MAGNESIUM (test code = MAG) 1.93 mg/dL 1.80-2.40 N BASIC METABOLIC [id number] 08:08:00 Test Item Value Reference Range Interpretation [...] the recommended for lucretia for GFRby the [facility] Foundati on for Adults.The GFR will not calculate if th e sex is unknown or if thepatient's ag e is <18 years. CREATININE (test 4.5 mg/dL 0.6-1.3 H code = CREAT) CALCIUM (test code = 8.2 mg/dL 8.0-10.5 N CA) CBC W/AUTO [id number] 07:09:00 Test Item Value Reference Range Interpretation [...] (test NO code = MDIFF) BASIC METABOLIC [id number] 07:52:00 Test Item Value Reference Range Interpretation [...] the recommended for lucretia for GFRby the [facility] Kidney Foundati on for Adults.The GFR will not calculate if th e sex is unknown or if thepatient's ag e is <18 years. CREATININE (test 4.0 mg/dL 0.6-1.3 H code = CREAT) CALCIUM (test code = 8.4 mg/dL 8.0-10.5 N CA) [id number] 07:49:00 Test Item Value Reference Range Interpretation Comments MAGNESIUM (test code = MAG) 2.05 mg/dL 1.80-2.40 N CBC W/AUTO [id number] 07:31:00 Test Item Value Reference Range Interpretation [...] (test NO code = MDIFF) CBC W/AUTO [id number] 07:59:00 Test Item Value Reference Range Interpretation [...] (test code NO = MDIFF) BASIC METABOLIC [id number] 07:40:00 Test Item Value Reference Range Interpretation [...] the recommended for lucretia for GFRby the [facility] Foundati on for Adults.The GFR will not calculate if th e sex is unknown or if thepatient's ag e is <18 years. CREATININE (test 3.2 mg/dL 0.6-1.3 H code = CREAT) CALCIUM (test code = 8.0 mg/dL 8.0-10.5 N CA) [id number] 07:36:00 Test Item Value Reference Range Interpretation Comments MAGNESIUM (test code = MAG) 2.12 mg/dL 1.80-2.40 N - XR CHEST 1 [id number] 00:00:00 [facility] 1940 Sex: M FAX: [place] Maldonado [phone] [place]: St: ADM FAX: Gianna Carmona [phone] FAX: Srinath Smith MD [phone] Name: SHERRI ARCE [facility] : 1940 Age/S: 81/M [address] [place] [address] Unit #: [id number] Loc: G.3354 [place] [address] Phys: Gianna Hoover Acct: [id number] Dis Date: Status: ADM IN PHONE #: [phone] Exam Date: 07/19/2022 [facility] FAX #: [phone] Reason: Post CV Surgery EXAMS: CPT CODE: [id number] XR CHEST 1 V 18976 PROCEDURE INFORMATION: Exam: XR Chest Exam date [...] Small bilateral pleural effusions. Mild atelectasis about theleft perihilar region. No other focal infiltrates within the lungs. Left apical pleural thickening similar to prior study. at 1126 Reported and signed by: Chaim Alonzo M.D. 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 [facility] [id number] 08:44:00 Test Item Value Reference Range Interpretation Comments MAGNESIUM (test code = MAG) 1.97 mg/dL 1.80-2.40 N BASIC METABOLIC [id number] 08:39:00 Test Item Value Reference Range Interpretation [...] 8.7 mg/dL 8.0-10.5 N CA) CBC W/AUTO [id number] 08:12:00 Test Item Value Reference Range Interpretation [...] NO = MDIFF) - XR CHEST 1 [id number] 00:00:00 [facility] : 1940 Sex: M FAX: Radha Ward MD [phone] [place]: St: ADM FAX: Los Crawford [phone] FAX: Sarbjit Sherman Larry Mario [phone] FAX: Gianna Carmona [phone] Name: SHERRI ARCE [facility] : 1940 Age/S: 81/M [address] [place] [address] Unit #: [id number] Loc: G.[address] [place] [address] Phys: Gianna Hoover Acct: [id number] Dis Date: Status: ADM IN PHONE #: [phone] Exam Date: 07/18/202259 FAX #: [phone] Reason: Post CV Surgery EXAMS: CPT CODE: [id number] XR CHEST 1 V 14554 PROCEDURE INFORMATION: Exam: XR Chest Exam date and time: 07/18/2022 [...] Sarbjit Mcarthur MD; Gianna LIZARRAGA Technologist: Ines Marley RT(R) Trnscrd Date/Time/By: 07/18/2022 (075) : By: ElvinL Orig Print D/T: S: 07/18/2022 (075) PAGE 1 Signed [id number] 04:11:00 Test Item Value Reference Range Interpretation Comments MAGNESIUM (test code = MAG) 2.00 mg/dL 1.80-2.40 N BASIC METABOLIC [id number] 03:54:00 Test Item Value Reference Range Interpretation [...] 8.2 mg/dL 8.0-10.5 N CA) CBC W/AUTO [id number] 03:36:00 Test Item Value Reference Range Interpretation [...] code NO = MDIFF) - DUP VEIN [id number] 00:00:00 [facility] 1940 Sex: M Name: SHERRI ARCE [facility] : 1940 Age/S: 81 / M [address] [place] [address] Unit #: [id number] Loc: [place] [address] Phys: Jana Mittal MD Acct: [id number] Dis Date: Status: ADM IN PHONE #: [phone] Exam Date: 07/17/2022 1516 FAX #: [phone] Reason: POST OP DVT PROPHYLAXIS EXAMS: CPTCODE: [id number] DUP VEIN WOJCIECH 08871 PROCEDURE INFORMATION: Exam: US Duplex Lower Extremity Veins, Bila teral Exam date and time: 07/17/2022 2:25 PM Age: 81 years old Clinical indication: Screening exam; Post op dvt prophylaxis TECHNIQUE: Imaging protocol: Real-time duplex ultrasound of the bilateral extremities with 2-D cleary scale, color Doppler flow and spectral waveform analysis including responses to c ompression and other maneuvers (when performed) with image documentation. Complete exam focused on the lower extremity veins. COMPARISON: US DUP VEIN WOJCIECH 07/03/2022 11:32 AM FINDINGS: Right deep veins: Unremarkable. The common femoral, femoral, proximal profunda femoral and popliteal veins are patent without thrombus. Normal Doppler waveforms. Normal compressibility and/or augmentation response. Rightsuperficial veins: Superficial thrombus in the right greater saphenous vein. Left deep veins: Unremarkable. The common femoral, femoral, proximal profunda femoral and popliteal veins are patent withoutthrombus. Normal Doppler waveforms. Normal compressibility and/or augmentation response. Left superficial veins: Saphenofemoral junction is patent without thrombus. Soft tissues: Complex hypoechoic area in the right inguinal region without internal vascular flow or peripheral hyperemia measuring 4.2 x1.4 x 2.3 cm which may represent a hematoma. IMPRESSION: No evidence of deep vein thrombosis. Superfi cial thrombus in the right greater saphenous vein. Complex hypoechoic area in the right inguinal region without internal vascular flow or peripheral hyperemia measuring 4.2 x 1.4 x 2.3 cm which may represent a hematoma. at 154 Reported and signed by: Delmer Palma M.D. CC: Radha Ward MD; Los Crawford DO; Jana Mittal MD; Sarbjit Mcarthur MD Technologist: Alyson Coleman RDMS(AB) Trnscb Date/Time: 07/17/2022 (7295) [email or web address] Orig Print D/T: S: 07/17/2022 (3585) Probe: PAGE 1 Signed Report- XR CHEST 1 [id number] 00:00:00 [facility] 1940 Sex: M FAX: Radha Ward MD [phone] [place]: St: ADM FAX: Los Crawford [phone] FAX: Fidel August [phone] FAX: Sarbjit Sherman [phone] Name: SHERRI ARCE [facility] : 1940 Age/S: 81/M [address] [place] [address] Unit #: [id number] Loc: G.[address] [place] [address] Phys: Willi August MD Acct: [id number] Dis Date: Status: ADM IN PHONE #: [phone] Exam Date: 07/17/2022 0554 FAX #: [phone] Reason: S/P CABG X 5 EXAMS: CPT CODE: [id number] XR CHEST 1 V 07591 PROCEDURE INFORMATION: Exam: XR Chest Exam date [...] IMPRESSION: 1. Stable postoperative cardiomediastinal silhouette. 2. Stable pulmonary opacities. 3. Stable pleural effusions. Pleural fluid/thickening extending over the left apex. No pneumothorax following thoracostomy tube removal. at 0756 Reported and signed by: Babak Ratliff M.D. CC: Radha Ward MD; Los Crawford DO; Willi August MD; Sarbjit Mcarthur MD Technologist: RT Britta(Taniya) Trnscrd Date/Time/By: 07/17/2022 (0756) : By: StevenKWL Orig Print D/T: S: 07/17/2022 (0757) PAGE 1 Signed [id number] 04:39:00 Test Item Value Reference Range Interpretation Comments MAGNESIUM (test code = MAG) 2.10 mg/dL 1.80-2.40 N BASIC METABOLIC [id number] 03:57:00 Test Item Value Reference Range Interpretation [...] Creatinine, pat ient age and sex. GFR jesse bourneless than 60 mL/min/ 1.73 square meters a re indicative ofCh ronic Kidney Disease. Values less than 15 mL/min/1.73squa re meters indicate Kidney failure. The calculation forGFR is based on the CKD-EPI (2020) calculat ion. This formulais race indifferent and is the recommended for lucretia for GFRby the [facility] Found[facility] on for Adults.The GFR will not calculate if th e sex is unknown or if thepatient's ag e is <18 years. CREATININE (test 4.0 mg/dL 0.6-1.3 H code = CREAT) CALCIUM (test code = 8.4 mg/dL 8.0-10.5 N CA) CBC W/AUTO [id number] 03:37:00 Test Item Value Reference Range Interpretation [...] NO = MDIFF) - XR CHEST 1 [id number] 00:00:00 [facility] : 1940 Sex: M FAX: Radha Ward MD [phone] [place]: St: FAX: Los Crawford [phone] FAX: Jana Mittal MD FAX: Sarbjit Sherman [phone] Name: SHERRI ARCE [facility] : 1940 Age/S: 81/M [address] [place] [address] Unit #: [id number] Loc: G.2202 [place] [address] Phys: Jana Mittal MD Acct: [id number] Dis Date: Status: ADM IN PHONE #: [phone] Exam Date: 07/16/2022 1055 FAX #: [phone] Reason: REASSESS PNEUMOTHORAX EXAMS: CPT CODE: [id number] XR CHEST 1 V 01650 PROCEDURE INFORMATION: Exam: XR Chest Exam date and time: 07/16/2022 9:31 AM Age: 81 years old Clinical indication: Pre- operative exam; Respiratory screening exam; Additional info: Reassess pneumothorax TECHNIQUE: Imaging protocol: Radiologic exam of the chest. Views: 1 view. COMPARISON: CR XR CHEST 1V 07/16/2022 4:51 AM FINDINGS: Tubes, catheters and devices: Right IJ catheter terminating at the cavoatrial junction. Left chest tubepresent. Lungs: Stable bibasilar airspace disease. Pleural spaces: Small left and stable small rightlayering pleural effusion. No pneumothorax. Heart/Mediastinum: Unchanged enlargement of the cardiomediastinal silhouette. Bones/joints: Intact median sternotomy wires. IMPRESSION: 1. Small left and stab le small right layering pleural effusion. 2. Left chest tube present. No pneumothorax. 3. Stable bibasilar airspace opacities at 1158 Reported and signed by: Som Enriquez M.D. CC: Radha Ward MD; Los Crawford DO; Jana Mittal MD; Sarbjit Mcarthur MD Technologist: RT Jeff(Taniya) Trnscrd Date/Time/By: 07/16/2022 (5938) : By: [email or web address] Orig Print D/T: S: 07/16/2022 (1158) PAGE 1 Signed Report- XR CHEST 1 [id number] 00:00:00 [facility] 1940 Sex: M FAX: Radha Ward MD [phone] [place]: St: [facility] FAX: Los Crawford [phone] FAX: Fidel August [phone] FAX: Sarbjit Sherman [phone] Name: YAZMINSHERRI [facility] : 1940 Age/S: 81/M [address] [place] [address] Unit #: [id number] Loc: G.[address] [place] [address] Phys: Willi August MD Acct: [id number] Dis Date: Status: ADM IN PHONE #: [phone] Exam Date: 07/16/2022 0500 FAX #: [phone] Reason: SP CABG EXAMS: CPT CODE: [id number] XR CHEST 1 V 87564 PROCEDURE INFORMATION: Exam: XR Chest Exam date and time: 07/16/2022 4:51 AM Age: 81 years old Clinical indication: Other: S/P cabg; Add itional info: Sp cabg TECHNIQUE: Imaging protocol: Radiologic [...] stable exam. Electr onically Signed by Ingrid Sesay on 07/16/2022 at 0710 Reported and signed by: Ranjan Sesay M.D. CC: Radha Ward MD; Los Crawford DO; Willi August MD; Sarbjit Mcarthur MD Technologist: RT Adrian(R) Trnscrd Date/Time/By: 07/16/2022 (0710) : By: [email or web address] Orig Print D/T: S:07/16/2022 (0710) PAGE 1 Signed [id number] 18:16:00 Test Item Value Reference Range Interpretation Comments MAGNESIUM (test code = MAG) 2.39 mg/dL 1.80-2.40 N BASIC METABOLIC [id number] 17:44:00 Test Item Value Reference Range Interpretation [...] 8.5 mg/dL 8.0-10.5 N CA) BASIC METABOLIC [id number] 04:55:00 Test Item Value Reference Range Interpretation [...] code = 8.1 mg/dL 8.0-10.5 N CA) [id number] 04:30:00 Test Item Value Reference Range Interpretation Comments MAGNESIUM (test code = MAG) 2.36 mg/dL 1.80-2.40 N CBC W/AUTO [id number] 04:16:00 Test Item Value Reference Range Interpretation [...] code = MDIFF) - XR CHEST 1 [id number] 00:00:00 [facility] 1940 Sex: M FAX: Radha Ward MD [phone] [place]: St: [facility] FAX: Los Crawford [phone] FAX: Jana Mittal MD FAX: Sarbjit Sherman [phone] Name: SHERRI ARCE [facility] : 1940 Age/S: 81/M [address] [place] [address] Bl Unit #: [id number] Loc: [address] [place] [address] Phys: Jana Mittal MD Acct: [id number] Date: Status: ADM IN PHONE #: [phone] Exam Date: 07/15/2022 1710 FAX #: [phone] Reason: TUNNELED DIALYSIS CATHETER PLACEMENT EXAMS: CPT CODE: [id number] XR CHEST 1 V 93963 PROCEDURE INFORMATION: Exam: XR Chest Exam date and time: 07/15/2022 4:54 PM Age: 81 years old Clinical indication: Screening exam; Other screening; Additional info: Tunneled dialysis catheter placement TECHNIQUE: Imaging protocol: Radiologic exam of the chest. Views: 1 view. COMPARISON: CR XR CHEST 1V 07/15/2022 6:26 AM FINDINGS: Tubes, catheters and devices: There has been interval placement of a right internal jugular central line with tip in the SVC. All other support lines and tubes are stable. Lungs: Central vascular congestion with mild pulmonary edema and small pleural effusions are seen. Pleural spaces: There is no discrete pneumothorax. Heart/Mediastinum: Cardiac silhouette remains enlarged. Trace amountof pneumomediastinum is again seen. Bones/joints: Median sternotomy [...] PAGE 1 Signed Report- XR CHEST 1 [id number] 00:00:00[facility] : 1940 Sex: M FAX: Radha Ward MD [phone] [place]: St: [facility] FAX: Joon Crawfordkanesachin [phone] FAX: Edwardo Flannery MD [phone] FAX: Sarbjit Sherman [phone] Name: SHERRI ARCE [facility] : 1940 Age/S: 81/M [address] [place] [address] Unit #: [id number] Loc: G.2202 [place] [address] Phys: Edwardo Flannery MD Acct: [id number] Dis Date: Status: ADM IN PHONE #: [phone] Exam Date: 07/15/2022654 FAX #: [phone]: FOLLOW UP EXAMS: CPT CODE: [id number] XR CHEST 1 V 33477 PROCEDURE INFORMATION: Exam: XR Chest Exam date and time: 07/15/2022 6:26 AM Age: 81 years old Clinical indication: Other: Follow up TECHN IQUE: Imaging protocol: Radiologic exam of the chest. Views: 1 view. COMPARISON: CR XR CHEST 1V 07/14/2022 2:07 PM FINDINGS: Tubes, catheters and devices: Left apical chest tube, unchanged position. Stable left basilar chest tube Lungs: Bibasilar airspace opacities, mildly worsened. Pleural spaces: Bilateral small pleural effusions. No pneumothorax. Heart/Mediastinum: Stable cardiomegaly. Uncoiled andcalcified aortic arch. Bones/joints: Median intact sternotomy wires. Stable. IMPRESSION: Left apicaland basilar chest tubes. No pneumothorax. Small bilateral pleural effusions. Bibasilar airspace opacities, mildly worsened. at 726 Reported and signed by: Sree Schmidt M.D. CC: Radha Ward MD; Los Crawford DO; Tera PIKE; Sarbjit Mcarthur MD Technologist: RT Britta(R) Trnscrd Date/Time/By: 07/15/2022 (726) : By: [email or web address] Orig Print D/T: S: 07/15/2022 (726) PAGE 1 Signed ReportBASIC METABOLIC [id number] 20:44:00 Test Item Value Reference Range Interpretation [...] 8.2 mg/dL 8.0-10.5 N CA) BASIC METABOLIC [id number] 11:22:00 Test Item Value Reference Range Interpretation [...] the recommended for lucretia for GFRby the [facility] for Adults.The GFR will not calculate if th e sex is unknown or if thepatient's ag e is <18 years. CREATININE (test 5.4 mg/dL 0.6-1.3 H code = CREAT) CALCIUM (test code = 8.4 mg/dL 8.0-10.5 N CA) BASIC METABOLIC [id number] 04:19:00 Test Item Value Reference Range Interpretation [...] code = 8.5 mg/dL 8.0-10.5 N CA) [id number] 04:19:00 Test Item Value Reference Range Interpretation Comments MAGNESIUM (test code = MAG) 2.40 mg/dL 1.80-2.40 N CBC W/AUTO [id number] 04:05:00 Test Item Value Reference Range Interpretation [...] NO = MDIFF) - XR CHEST 1 [id number] 00:00:00 [facility] : 1940 Sex: M FAX: Radha Ward MD [phone] [place]: St: [facility] FAX: Los Crawford [phone] FAX: Jana Mittal MD FAX: Sarbjit Sherman [phone] Name: SHERRI ARCE [facility] : 1940 Age/S: 81/M [address] [place] [address] Unit #: [id number] Loc: [address] [address] Phys: Jana Mittal MD Acct: [id number] Dis Date: Status: ADM IN PHONE #: [phone] Exam Date: 07/14/20221410 FAX #: [phone] Reason: CHEST TUBE PLACEMENT EXAMS: CPT CODE: [id number] XR CHEST 1 V 16418 PROCEDURE INFORMATION: Exam: XRChest Exam date and time: 07/14/2022 2:07 PM Age: 81 years old Clinical indication: Device placement; Chest tube; Additional info: Chest tube placement TECHNIQUE: Imaging protocol: Radiologic exam of [facility]. Views: 1 view. COMPARISON: CR XR CHEST 1V 07/14/2022 6:26 AM FINDINGS: Lungs: The other lung opacities are stable. Pleural spaces: Decreased size of left pneumothorax, now small involving 10% volume. Placement of left chest tube near the apex. Stable left basilar chest tube. Small left pleural effusion is probably present, stable. There could be a right pleural effusion, stable. Heart/Mediastinum: Stable heart size. Vasculature: Atherosclerotic calcifications. Bones/joints: Stable. Median sternotomy wires. IMPRESSION: Interval placement of left chest tube near the apex with decreased size of left pneumothorax now small. Otherwise, stable exam. at 1509 Reported and signed by: Ranjan Sesay M.D. CC: Radha Ward MD; Los Crawford DO; Jana Mittal MD; Sarbjit Mcarthur MD Technologist: Eloisa Cali RT(R) Trnscrd Date/ Time/By: 07/14/2022 (1503) : By: [email or web address] [facility] Print D/T: S: 07/14/2022 (1052) PAGE 1 Signed Report- [facility] (Biopsy/Asp)2022-07-14 00:00:00 [facility] 1940 Sex: M Name: SHERRI ARCE [facility] : 1940 Age/S: 81 / M [address] [place] [address] Unit #: [id number] Loc: [place] [address] Phys: Gianna Hoover Acct: [id number] Dis Date: Status: ADM IN PHONE #: [phone] Exam Date: 07/14/20221508 FAX #: [phone] Reason: Left Pneumothorax- pigtail cath placement EXAMS: CPT CODE: [id number] [facility] (Biopsy/Asp) [address] PROCEDURE INFORMATION: Exam: IR Thoracentesis, Aspiration With [...] All elements of maximal sterile barrier technique werefollowed which include cap, mask, sterile gown, sterile [...] 1 Signed Report (CONTINUED) Name: SHERRI ARCE [facility] : 1940 Age/S: 81 / M [address] [place] [address] Unit #: [id number] Loc: [place] [address] Phys: Gianna Hoover Acct: [id number] Dis Date: Status: ADM IN PHONE #: [phone] Exam Date: 07/14/2022 150 FAX #: [phone] Reason: Left Pneumothorax- pigtail cath placement EXAMS: CPT CODE:[id number] CT [facility] NDL [facility] (Biopsy/Asp) [address]04 (Continued) usual sterile fashion and satisfactory anesthesia was obtained with 1% local lidocaine and IV fentanyl. An 18 gauge Chiba needle was then introduced into the pneumothorax through a left anterior superior approach and good position was confirmed with repeat CT imaging and aspiration of air. A wire was then advanced into the left pleural cavityand the tract was dilated to 8 Romansh. An 8.5 Romansh pigtail catheter was then placed. The catheter was then connected to a pleura vac which [...] Technologist:RT Jalyn(R)(CT) CTDI: DLP: Trnscb Date/Time: 07/14/2022 (1225) [email or web address] Orig Print D/T: S: 07/14/2022 (1437) PAGE 2 Signed Report- XR CHEST 1 [id number] 00:00:00 [facility] : 1940 Sex: M FAX: Radha Ward MD [phone] [place]: St: [facility] FAX: Los Crawford [phone] FAX: Ana Toribio [phone] FAX: Sarbjit Sherman [phone] Name: SHERRI ARCE [facility] : 1940 Age/S: 81/M [address] [place] [address] Bl Unit #: [id number] Loc: [address] [address] Phys: Rosalind Puentes NP Acct: [id number] Dis Date: Status: ADM IN PHONE #: [phone] Exam Date: 07/14/2022626 FAX #: [phone] Reason: Cardiac Surgery Post Op EXAMS: CPT CODE: [id number] XR CHEST 1 V 89615 PROCEDURE INFORMATION: Exam: XR Chest Exam date [...] Pradhan Trnscrd Date/Time/By: 07/14/2022 (914) : By: [email or web address] Orig Print D/T: S: 07/14/2022 (914) PAGE 1 Signed ReportPO ARTERIAL BLOOD GAS 2022-07-13 10:47:00 Test Item Value Reference Range Interpretation Comments POC ARTERIAL BLOOD GAS PH (test 7.388 7.35-7.45 N code = POCPHA) POC ARTERIAL BLOOD GAS PCO2 (test 31.6 mmHg 35.0-45 L code = [id number]) POC TCO2 ARTERIAL (test code = 20.0 POCTCO2) POC ARTERIAL BLOOD GAS PO2 (test 80.5 mmHg 80-100.0 N code = DMUCY8R) POC HCO3 ARTERIAL (test code = 19.0 MMOL/L 22.0-26.0 L [id number]) POC BASE EXCESS (test code = -5.9 MMOL/L -4.0-4.0 L POCBEA) POC O2 SATURATION (test code = 95.9 % 90-100 N POCO2S) ABG DELIVERY (test code = JH) Room Air BASIC METABOLIC [id number] 10:47:00 Test Item Value Reference Range Interpretation [...] = POCGLU) 137 MG/DL 70-110 H HEMOGLOBIN [id number] 10:47:00 Test Item Value Reference Range Interpretation Comments HEMOGLOBIN ABG (test code = HGB/ABG) 9.0 G/DL 12.5-16.9 L [id number] 10:47:00 Test Item Value Reference Range Interpretation Comments HEMATOCRIT (test code = HCT/ABG) 26 % 37.5-50.7 L POC LACTIC [id number] 10:47:00 Test Item Value Reference Range Interpretation Comments POC LACTIC ACID (test code = 1.8 mmol/l 0.9-1.7 H POCLAC) POC ARTERIAL BLOOD [id number] 03:26:00 Test Item Value Reference Range Interpretation Comments POC ARTERIAL BLOOD GAS PH (test 7.415 7.35-7.45 N code = POCPHA) POC ARTERIAL BLOOD GAS PCO2 35.4 mmHg 35.0-45 N (test code = LBYEAW2O) POC TCO2 ARTERIAL (test code = 23.8 POCTCO2) POC ARTERIAL BLOOD GAS PO2 (test 68.5 mmHg 80-100.0 L code = FPPLS4H) POC HCO3 ARTERIAL (test code = 22.7 MMOL/L 22.0-26.0 N OPIYTV7Q) POC BASE EXCESS (test code = -1.9 MMOL/L -4.0-4.0 N POCBEA) POC O2 SATURATION (test code = 93.8 % 90-100 N POCO2S) FIO2 (test code = FIO2A) 32 % PaO2/FiO2 (test code = CXO7SKF4) 214.06 mm/Hg ABG DELIVERY (test code = JH) Cannula ABG SITE (test code = SITEA) Art Line BASIC METABOLIC [id number] 03:26:00 Test Item Value Reference Range Interpretation [...] = POCGLU) 84 MG/DL 70-110 N HEMOGLOBIN [id number] 03:26:00 Test Item Value Reference Range Interpretation Comments HEMOGLOBIN ABG (test code = HGB/ABG) 7.9 G/DL 12.5-16.9 L [id number] 03:26:00 Test Item Value Reference Range Interpretation Comments HEMATOCRIT (test code = HCT/ABG) 23 % 37.5-50.7 L POC LACTIC [id number] 03:26:00 Test Item Value Reference Range Interpretation Comments POC LACTIC ACID (test code = 0.6 mmol/l 0.9-1.7 L POCLAC) BASIC METABOLIC [id number] 03:25:00 Test Item Value Reference Range Interpretation [...] code = 8.0 mg/dL 8.0-10.5 N CA) [id number] 03:25:00 Test Item Value Reference Range Interpretation Comments MAGNESIUM (test code = MAG) 2.29 mg/dL 1.80-2.40 N CBC W/AUTO [id number] 03:12:00 Test Item Value Reference Range Interpretation [...] code = MDIFF) - XR CHEST 1 [id number] 00:00:00 [facility] 1940 Sex: M FAX: Radha Ward MD [phone] [place]: St: ADM FAX: Los Crawford [phone] FAX: Ana Toribio [phone] FAX: Sarbjit Sherman [phone] Name: SHERRI ARCE [facility] : 1940 Age/S: 81/M [address] [place] [address] Unit #: [id number] Loc: [address] [place] [address] Phys: Rosalind Puentes SECURITY THREAT ANALYST Acct: [id number] Dis Date: Status: ADM IN PHONE #: [phone] Exam Date: 07/13/2022 0652 FAX #: [phone] Reason: Cardiac Surgery Post Op Report Has Been Amended EXAMS: CPT CODE: [id number] XR CHEST 1 V 88679 Addendum - 07/13/2022 SIGNED 07/13/2022 ADDENDUM: [id number]/CXR1 This is an addendum to the previously dictated report to document communication. Findings were discussed withNurse Espinal at 07/13/2022 9:18 AM FOOD SERVICE ASSOCIATE. [id number] Reported and signed by: Delmer Palma M.D. Report PROCEDURE INFORMATION: Exam: XR Chest Exam date and time: 07/13/2022 6:51 AM Age: 81 years old Clinical indication: Pain; Other: Cardiac surgerypost op TECHNIQUE: Imaging protocol: Radiologic exam of the chest. Views: 1 view. COMPARISON: CR XR CHEST 1V 07/12/2022 5:48 AM FINDINGS: Tubes, catheters and devices: Right neck vascular sheath. Left me diastinal/chest tube. Lungs: Bilateral lung opacities have not significantly changed when allowing for changes in technique. Pleural spaces: Left apical pneumothorax measuring approximately 4 cm, approximately 30%. Questionable bilateral pleural effusions. Heart/Mediastinum: The heart size is stable. 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 Bones/joints: Stable. IMPRESSION: Left apical pneumothorax measuring approximately 4 cm, approximately 30%. Otherwise, no significant change. PAGE 1 Signed Report (CONTINUED) FAX: Radha Ward MD [phone] [place]: St: ADM FAX: Los Crawford [phone] FAX: Ana Toribio [phone] FAX: Sarbjit Sherman [phone] Name: SHERRI ARCE [facility] : 1940 Age/S: 81/M [address] [place] [address] Blvd Unit #: [id number] Loc: G.2202 [place] [address] Phys: Rosalind Puentes SECURITY THREAT ANALYST Acct: [id number] Dis Date: Status: ADM IN PHONE #: [phone] Exam Date: 07/13/2022 0652 FAX #: [phone] Reason: Cardiac Surgery Post Op Report Has Been Amended EXAMS: CPT CODE: [id number] XR CHEST 1 V 27988 (Continued) at 0915 Reported and signed by: Delmer Palma M.D. CC: Radha Ward MD; Los Crawford DO; Rosalind Toribio SECURITY THREAT ANALYST; Sarbjit Louise Technologist: Isidro Jarquin; Elaina Reeves, RT(R) Trnscrd Date/Time/By: 07/13/2022 (914) : By: [email or web address] Orig Print D/T: S: 07/13/2022 (914) PAGE 2 Signed Report- US RETRO [id number] 00:00:00 [facility] 1940 Sex: M Name: SHERRI ARCE [facility] : 1940 Age/S: 81 / M [address] [place] [address] Unit #: [id number] Loc: [place] [address] Phys: Evelina Plaza MD Acct: [id number] Dis Date: Status: ADM IN PHONE #: [phone] Exam Date: 07/12/2022 1624 FAX #: [phone] Reason: hydronephrosis EXAMS: CPT CODE: [id number] US RETRO LTD 63788 PROCEDURE INFORMATION: Exam: US Retroperitoneal Limited. Exam [...] Moderate hydronephrosis. Measures 12.6 cm in length. Urinary bladder: Decompressed around a Waters catheter. IMPRESSION: Moderate left hydronephrosis, appears slightly improved compared to prior exam. Findings suggestive of medical renal disease. ElectronicallySigned by Ingrid Palma on 07/13/2022 at 0651 Reported and signed by: Delmer Palma M.D. CC:Evelina Plaza MD; Radha Ward MD; Los Crawford DO Technologist: Ailin Hernadez RDMS(Bud)(BR) Trnscb Date/Time: 07/13/2022 (0651) Humberto.AB53 PAGE 1 Signed ReportBASIC METABOLIC [id number] 12:25:00 Test Item Value Reference Range Interpretation [...] the recommended for lucretia for GFRby the [facility] for Adults.The GFR will not calculate if th e sex is unknown or if thepatient's ag e is <18 years. CREATININE (test 2.1 mg/dL 0.6-1.3 H code = CREAT) CALCIUM (test code = 8.2 mg/dL 8.0-10.5 N CA) [id number] 12:25:00 Test Item Value Reference Range Interpretation Comments MAGNESIUM (test code = MAG) 2.03 mg/dL 1.80-2.40 CALCIUM [id number] 12:25:00 Test Item Value Reference Range Interpretation Comments CALCIUM IONIZED (test code = FABIAN) 1.12 MMOL/L 1.09-1.30 N CBC W/AUTO [id number] 12:07:00 Test Item Value Reference Range Interpretation [...] (test NO code = MDIFF) BASIC METABOLIC [id number] 04:50:00 Test Item Value Reference Range Interpretation [...] the recommended for lucretia for GFRby the [facility] on for Adults.The GFR will not calculate if th e sex is unknown or if thepatient's ag e is <18 years. CREATININE (test 4.3 mg/dL 0.6-1.3 H code = CREAT) CALCIUM (test code = 8.6 mg/dL 8.0-10.5 N CA) [id number] 04:50:00 Test Item Value Reference Range Interpretation Comments MAGNESIUM (test code = MAG) 2.69 mg/dL 1.80-2.40 H CBC W/AUTO [id number] 04:33:00 Test Item Value Reference Range Interpretation [...] NO code = MDIFF) POC ARTERIAL BLOOD [id number] 04:15:00 Test Item Value Reference Range Interpretation Comments POC ARTERIAL BLOOD GAS PH (test 7.371 7.35-7.45 N code = POCPHA) POC ARTERIAL BLOOD GAS PCO2 (test 34.5 mmHg 35.0-45 L code = KSQADB3E) POC TCO2 ARTERIAL (test code = 21.1 POCTCO2) POC ARTERIAL BLOOD GAS PO2 (test 58.5 mmHg 80-100.0 L code = FGSBX9A) POC HCO3 ARTERIAL (test code = 20.0 MMOL/L 22.0-26.0 L GLYGQM6Q) POC BASE EXCESS (test code = -5.3 MMOL/L -4.0-4.0 L POCBEA) POC O2 SATURATION (test code = 89.5 % 90-100 L POCO2S) ABG DELIVERY (test code = JH) [facility] ABG SITE (test code = SITEA) Art Line BASIC METABOLIC [id number] 04:15:00 Test Item Value Reference Range Interpretation [...] = POCGLU) 130 MG/DL 70-110 H HEMOGLOBIN [id number] 04:15:00 Test Item Value Reference Range Interpretation Comments HEMOGLOBIN ABG (test code = HGB/ABG) 9.2 G/DL 12.5-16.9 L [id number] 04:15:00 Test Item Value Reference Range Interpretation Comments HEMATOCRIT (test code = HCT/ABG) 27 % 37.5-50.7 L POC LACTIC [id number] 04:15:00 Test Item Value Reference Range Interpretation Comments POC LACTIC ACID (test code = 0.6 mmol/l 0.9-1.7 L POCLAC) - XR CHEST 1 [id number] 00:00:00 [facility] 1940 Sex: M FAX: Radha Ward MD [phone] [place]: St: [facility] FAX: Los Crawford [phone] FAX: Ana Toribio [phone] Name: SHERRI ARCE [facility] : 1940 Age/S: 81/M [address] [place] [address] Unit #: [id number] Loc: G.2202 [place] [address] Phys: Rosalind Puentes SECURITY THREAT ANALYST Acct: [id number] Dis Date: Status: ADM IN PHONE #: [phone] Exam Date: 07/12/2022706 FAX #: [phone] Reason: Cardiac SurgeryPost Op EXAMS: CPT CODE: [id number] XR CHEST 1 V 42949 PROCEDURE INFORMATION: Exam: XR Chest Exam date and time: 07/12/2022 5:48 AM Age: 81 years old Clinical indication: Other: Cardiac surgery post op TECHNIQUE: Imaging protocol: Radiologic exam of the chest. Views: 1 view. COMPARISON: CR XR CHEST 1V 07/11/2022 5:08 AM FINDINGS: Tubes, catheters and devices: [place]-Ally catheter has been removed. Left chest tube is demonstrated. Lungs: Cepd-nv-sjzpvfxf bilateral perihilar and basilar interstitial lung opacities, [...] Moderate to severe enlarged cardiac silhouette. 3. Wyhp-re-hhpuylkm pulmonary edema versus infiltrates. Improvement. at 0736 Reported and signed by: Manuel Vega M.D. CC: Radha Ward MD; Los Crawford DO; Rosalind Toribio NP Technologist: Isidro Jarquin; RT Dorcas(R) Trnscrd Date/Time/By: 07/12/2022 (0736) : By: [email or web address] Orig Print D/T:S: 07/12/2022 (0758) PAGE 1 Signed ReportBASIC METABOLIC PANEL 2022-07-11 [...] the recommended for lucretia for GFRby the [facility] on for Adults.The GFR will not calculate if th e sex is unknown or if thepatient's ag e is <18 years. CREATININE (test 3.9 mg/dL 0.6-1.3 H code = CREAT) CALCIUM (test code = 8.6 mg/dL 8.0-10.5 N CA) CALCIUM [id number] 23:16:00 Test Item Value Reference Range Interpretation Comments CALCIUM IONIZED (test code = FABIAN) 1.09 MMOL/L 1.09-1.30 N HGB [id number] 22:43:00 Test Item Value Reference Range Interpretation Comments HEMOGLOBIN (test code = HGB) 8.1 g/dL 12.5-16.9 L HEMATOCRIT (test code = HCT) 25.4 % 37.5-50.7 L GLUCOSE [id number] 20:41:00 Test Item Value Reference Range Interpretation Comments GLUCOSE BEDSIDE (test 122 MG/DL 70-110 H Perfor med by certified code = GLUBED) 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 operator at [facility] BASIC METABOLIC [id number] 16:09:00 Test Item Value Reference Range Interpretation [...] the recommended for lucretia for GFRby the [facility] for Adults.The GFR will not calculate if th e sex is unknown or if thepatient's ag e is <18 years. CREATININE (test 3.8 mg/dL 0.6-1.3 H code = CREAT) CALCIUM (test code = 8.9 mg/dL 8.0-10.5 N CA) [id number] 16:09:00 Test Item Value Reference Range Interpretation Comments PHOSPHOROUS (test code = PHOS) 3.9 MG/DL 2.5-4.9 N [id number] 16:09:00 Test Item Value Reference Range Interpretation Comments MAGNESIUM (test code = MAG) 2.72 mg/dL 1.80-2.40 H CALCIUM [id number] 16:09:00 Test Item Value Reference Range Interpretation Comments CALCIUM IONIZED (test code = FABIAN) 1.17 MMOL/L 1.09-1.30 N POC ARTERIAL BLOOD [id number] 15:54:00 Test Item Value Reference Range Interpretation Comments POC ARTERIAL BLOOD GAS PH (test 7.347 7.35-7.45 L code = POCPHA) POC ARTERIAL BLOOD GAS PCO2 (test 37.9 mmHg 35.0-45 N code = DEJEOR6Y) POC TCO2 ARTERIAL (test code = 22.0 POCTCO2) POC ARTERIAL BLOOD GAS PO2 (test 80.5 mmHg 80-100.0 N code = DQFUN5T) POC HCO3 ARTERIAL (test code = 20.8 MMOL/L 22.0-26.0 L PDHWNH1E) POC BASE EXCESS (test code = -4.8 MMOL/L -4.0-4.0 L POCBEA) POC O2 SATURATION (test code = 95.2 % 90-100 N POCO2S) ABG DELIVERY (test code = JH) Cannula ABG TEMPERATURE (test code = 98.6 F TEMPA) ABG SITE (test code = SITEA) Art Line MARYLU'S TEST (test code = ALLENS) N/A BASIC METABOLIC [id number] 15:54:00 Test Item Value Reference Range Interpretation [...] = POCGLU) 159 MG/DL 70-110 H HEMOGLOBIN [id number] 15:54:00 Test Item Value Reference Range Interpretation Comments HEMOGLOBIN ABG (test code = HGB/ABG) 9.3 G/DL 12.5-16.9 L [id number] 15:54:00 Test Item Value Reference Range Interpretation Comments HEMATOCRIT (test code = HCT/ABG) 27 % 37.5-50.7 L POC LACTIC [id number] 15:54:00 Test Item Value Reference Range Interpretation Comments POC LACTIC ACID (test code = 1.1 mmol/l 0.9-1.7 N POCLAC) POC ARTERIAL BLOOD [id number] 09:52:00 Test Item Value Reference Range Interpretation Comments POC ARTERIAL BLOOD GAS PH (test 7.381 7.35-7.45 N code = POCPHA) POC ARTERIAL BLOOD GAS PCO2 (test 36.5 mmHg 35.0-45 N code = EBDSRR8A) POC TCO2 ARTERIAL (test code = 22.8 POCTCO2) POC ARTERIAL BLOOD GAS PO2 (test 71.5 mmHg 80-100.0 L code = XWURC2X) POC HCO3 ARTERIAL (test code = 21.7 MMOL/L 22.0-26.0 L RXGUYV6C) POC BASE EXCESS (test code = -3.4 MMOL/L -4.0-4.0 N POCBEA) POC O2 SATURATION (test code = 93.9 % 90-100 N POCO2S) ABG DELIVERY (test code = JH) Cannula ABG TEMPERATURE (test code = 98.8 F TEMPA) ABG SITE (test code = SITEA) Art Line MARYLU'S TEST (test code = ALLENS) N/A BASIC METABOLIC [id number] 09:52:00 Test Item Value Reference Range Interpretation [...] = POCGLU) 122 MG/DL 70-110 H HEMOGLOBIN [id number] 09:52:00 Test Item Value Reference Range Interpretation Comments HEMOGLOBIN ABG (test code = HGB/ABG) 9.2 G/DL 12.5-16.9 L [id number] 09:52:00 Test Item Value Reference Range Interpretation Comments HEMATOCRIT (test code = HCT/ABG) 27 % 37.5-50.7 L POC LACTIC [id number] 09:52:00 Test Item Value Reference Range Interpretation Comments POC LACTIC ACID (test code = 0.5 mmol/l 0.9-1.7 L POCLAC) GLUCOSE [id number] 07:55:00 Test Item Value Reference Range Interpretation Comments GLUCOSE BEDSIDE (test 117 MG/DL 70-110 H Perfor med by certified code = GLUBED) 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 operator at [facility] BASIC METABOLIC [id number] 04:32:00 Test Item Value Reference Range Interpretation [...] = POCGLU) 102 MG/DL 70-110 N HEMOGLOBIN [id number] 04:32:00 Test Item Value Reference Range Interpretation Comments HEMOGLOBIN ABG (test code = 10.5 G/DL 12.5-16.9 L HGB/ABG) [id number] 04:32:00 Test Item Value Reference Range Interpretation Comments HEMATOCRIT (test code = HCT/ABG) 31 % 37.5-50.7 L POC LACTIC [id number] 04:32:00 Test Item Value Reference Range Interpretation Comments POC LACTIC ACID (test code = 0.4 mmol/l 0.9-1.7 L POCLAC) POC VENOUS BLOOD [id number] 04:32:00 Test Item Value Reference Range Interpretation Comments POC VENOUS BLOOD GAS PH (test 7.369 7.33-7.45 N code = POCPHV) POC VENOUS BLOOD GAS PCO2 (test 42.1 mmHg 43-47 L code = [id number]) POC VENOUS BLOOD GAS PO2 (test 30.2 mmHG 10-50 N code = [id number]) POC TCO2 VENOUS (test code = 25.6 [id number]) POC HCO3 VENOUS (test code = 24.3 MMOL/L 22-27 N [id number]) POC BASE EXCESS VENOUS (test code -1.0 MMOL/L -4.0-4.0 N = POCBEV) POC O2 SATURATION VENOUS (test 55.6 % 60-80 L code = [id number]) VENOUS BLOOD GAS DELIVERY (test HFNC code = DELV) VENOUS BLOOD GAS SITE (test code [place] = SITEV) [id number] 03:34:00 Test Item Value Reference Range Interpretation Comments MAGNESIUM (test code = MAG) 2.89 mg/dL 1.80-2.40 H BASIC METABOLIC [id number] 03:14:00 Test Item Value Reference Range Interpretation [...] the recommended for lucretia for GFRby the [facility] Ad[facility].The GFR will not calculate if th e sex is unknown or if thepatient's ag e is <18 years. CREATININE (test 3.2 mg/dL 0.6-1.3 H code = CREAT) CALCIUM (test code = 9.0 mg/dL 8.0-10.5 N CA) COMMENTS: POD #1HEPATIC FUNCTION [id number] 03:14:00 Test Item Value Reference Range Interpretation [...] code = ALKP) COMMENTS: POD #1CBC W/AUTO [id number] 03:07:00 Test Item Value Reference Range Interpretation [...] NO code = MDIFF) POC ARTERIAL BLOOD [id number] 02:32:00 Test Item Value Reference Range Interpretation Comments POC ARTERIAL BLOOD GAS PH (test 7.375 7.35-7.45 N code = POCPHA) POC ARTERIAL BLOOD GAS PCO2 (test 40.6 mmHg 35.0-45 N code = GIQPXX5N) POC TCO2 ARTERIAL (test code = 25.0 POCTCO2) POC ARTERIAL BLOOD GAS PO2 (test 64.8 mmHg 80-100.0 L code = QFJCM1O) POC HCO3 ARTERIAL (test code = 23.8 MMOL/L 22.0-26.0 N MTGGOT0V) POC BASE EXCESS (test code = -1.4 MMOL/L -4.0-4.0 N POCBEA) POC O2 SATURATION (test code = 91.8 % 90-100 N POCO2S) ABG DELIVERY (test code = JH) [facility] ABG SITE (test code = SITEA) Art Line BASIC METABOLIC [id number] 02:32:00 Test Item Value Reference Range Interpretation [...] = POCGLU) 109 MG/DL 70-110 N HEMOGLOBIN [id number] 02:32:00 Test Item Value Reference Range Interpretation Comments HEMOGLOBIN ABG (test code = HGB/ABG) 9.3 G/DL 12.5-16.9 L [id number] 02:32:00 Test Item Value Reference Range Interpretation Comments HEMATOCRIT (test code = HCT/ABG) 27 % 37.5-50.7 L POC LACTIC [id number] 02:32:00 Test Item Value Reference Range Interpretation Comments POC LACTIC ACID (test code = 0.5 mmol/l 0.9-1.7 L POCLAC) - XR CHEST 1 [id number] 00:00:00 [facility] 1940 Sex: M FAX: Radha Ward MD [phone] [place]: St: [facility] FAX: [place] [phone] FAX: Ana Toribio [phone] Name: SHERRI ARCE [facility] : 1940 Age/S: 81/M [address] [place] [address] Unit #: [id number] Loc: G.2202 [place] [address] 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 Views: 1 view. COMPARISON: CR XR CHEST 1V 07/10/2022 5:24 AM FINDINGS: Tubes, catheters and devices: Shabbona-Ally catheter is present and enters right neck sheath. The Shabbona-Ally catheter tip overlies the expected pulmonary outflow tract region. Leftchest tube is demonstrated. Lungs: Moderate to severe degree diffuse, bilateral perihilar and basilar interstitial alveolar pulmonary edema versus infiltrates, pneumonia within the lungs. Progression of right-sided lower lung opacities is demonstrated. Left-sided lung opacities appear stable. Pleural spaces: Small volume bilateral pleural effusions. No pneumothorax identified. Heart/Mediastinum: Cardiac silhouette appears moderately enlarged. Vasculature: Tortuous and ectatic aorta is demonstrated.Hjij-wm-ceiaaijp atherosclerotic calcification demonstrated within the aorta. Bones/joints: Diffusely decreased bone density. Moderate to severe generalized bony degenerative changes. Sternotomy wires,hardware is demonstrated. Soft tissues: Limited visualization of the upper chest, secondary to overlying head position. This study is limited by patient's body habitus. IMPRESSION: 1. Moderate enlargedcardiac silhouette. 2. Small bilateral pleural effusions. 3. Moderate to severe pulmonary edema versus infiltrates, pneumonia. Progression of opacities within right lower chest. 4. Degenerative and post surgical changes are demonstrated, as described above. 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 CC: Radha Ward MD; [place] DO; Rosalind Toribio NP Technologist: RT Britta(R) Trnscrd Date/Time/By: 07/11/2022 (1823) : By: [email or web address] Orig Print D/T: S: 07/11/2022 (3577) PAGE2 Signed ReportBASIC METABOLIC PANEL 2022-07-10 21:21:00 Test [...] Creatinine, pat ient age and sex. GFR jesse bourneless than 60 mL/min/ 1.73 square meters a re indicative ofCh ronic Kidney Disease. Values less than 15 mL/min/1.73squa re meters indicate Kidney failure. The calculation forGFR is based on the CKD-EPI (2020) calculat ion. This formulais race indifferent and is the recommended for lucretia for GFRby the [facility] on for Adults.The GFR will not calculate if th e sex is unknown or if thepatient's ag e is <18 years. 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 CREATININE (test 2.6 mg/dL 0.6-1.3 H code = CREAT) CALCIUM (test code = 8.8 mg/dL 8.0-10.5 N CA) [id number] 15:12:00 Test Item Value Reference Range Interpretation Comments PHOSPHOROUS (test code = PHOS) 3.2 MG/DL 2.5-4.9 N [id number] 15:12:00 Test Item Value Reference Range Interpretation Comments MAGNESIUM (test code = MAG) 2.39 mg/dL 1.80-2.40 N CALCIUM [id number] 15:12:00 Test Item Value Reference Range Interpretation Comments CALCIUM IONIZED (test code = FABIAN) 1.19 MMOL/L 1.09-1.30 N CBC W/AUTO [id number] 15:00:00 Test Item Value Reference Range Interpretation [...] DIFF REQUIRED (test NO code = MDIFF) [id number] 14:54:00 Test Item Value Reference Range Interpretation Comments SURGICAL (test code = SR) -----RUN DATE: 07/10/22 [place] [facility] PAGE 1 RUN TIME: 1454 Specimen Inquiry RUN USER: INTERFACE -----PATIENT: SHERRI ARCE LOC: AYO U #: [id number] AGE/SX: 81/M ROOM: [facility] RE07/02/22REG DR: Radha Ward MD : 44 BED: 1 DIS: STATUS: ADM IN TLOC: ----- SPEC #: [id number] RECD: 07/09/22 STATUS: ASTRID LUIS #: [id number] AARON: 07/08/22- SUBM DR: Lina Schwarz MD ENTERED: 07/09/22 SP TYPE: SURGICAL OTHR DR: Self Referred Liset Stack MD, Soubhi MD Burnette, Christopher A DO Chaugle, Abdul Hannan MD Raslan, Saleem MDORDERED: 50415, ANATOMIC SPEC COPIES TO: Self Referred Liset Stack MD [address] [place] [address] Evelina Plaza MD [address] [place] [address] [place] [address] [facility] [address] [place] [address] Lina Schwarz MD [address] [place] [address]. [address] [place] [address] Mario Gomes MD [address] [facility] [address] [place] [address] PROCEDURES: 69843 (07/10/22-1433) TISSUES: A. ATRIUM - LEFT ATRIAL APPENDAGE CONTINUED ON NEXT PAGE -----RUN DATE: 07/10/22 [employer] [employer] - LAB PAGE 2 RUN TIME: 1454 Specimen Inquiry RUN USER: INTERFACE -----SPEC #: [id number] PATIENT: SHERRI ARCE #[id number] (Continued) CLINICAL HISTORY SAME FINAL DIAGNOSIS Heart, left atrial appendage, wedge biopsy: Myocardium with ischemic change; serosalinflammation, consistent with pericarditis. GROSS DESCRIPTION Received in formalin labeled "left atrial appendage "is a wedge biopsy of heart, 3.4 x 0.2x 1.4 cm, sectioned and entirely submitted (A)-(B). 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 The calculatio n forGFR is based on the CKD-EPI (2020) [...] code = 8.9 mg/dL 8.0-10.5 N CA) [id number] 10:44:00 Test Item Value Reference Range Interpretation Comments PHOSPHOROUS (test code = PHOS) 3.7 MG/DL 2.5-4.9 N [id number] 10:44:00 Test Item Value Reference Range Interpretation Comments MAGNESIUM (test code = MAG) 2.28 mg/dL 1.80-2.40 N CALCIUM [id number] 10:44:00 Test Item Value Reference Range Interpretation Comments CALCIUM IONIZED (test code = FABIAN) 1.21 MMOL/L 1.09-1.30 N GLUCOSE [id number] 10:23:00 Test Item Value Reference Range Interpretation Comments GLUCOSE BEDSIDE (test 111 MG/DL 70-110 H Perfor med by certified code = GLUBED) 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 operator at [facility] POC ARTERIAL BLOOD [id number] 10:12:00 Test Item Value Reference Range Interpretation Comments POC ARTERIAL BLOOD GAS PH (test 7.385 7.35-7.45 N code = POCPHA) POC ARTERIAL BLOOD GAS PCO2 (test 46.4 mmHg 35.0-45 H code = JZLQYN5C) POC TCO2 ARTERIAL (test code = 29.2 POCTCO2) POC ARTERIAL BLOOD GAS PO2 (test 89.1 mmHg 80-100.0 N code = UKLKF2U) POC HCO3 ARTERIAL (test code = 27.8 MMOL/L 22.0-26.0 H JGYRLL2E) POC BASE EXCESS (test code = 2.7 MMOL/L -4.0-4.0 N POCBEA) POC O2 SATURATION (test code = 96.7 % 90-100 N POCO2S) ABG DELIVERY (test code = JH) Cannula ABG TEMPERATURE (test code = 98.4 F TEMPA) ABG SITE (test code = SITEA) Art Line MARYLU'S TEST (test code = ALLENS) N/A BASIC METABOLIC [id number] 10:12:00 Test Item Value Reference Range Interpretation [...] = POCGLU) 139 MG/DL 70-110 H HEMOGLOBIN [id number] 10:12:00 Test Item Value Reference Range Interpretation Comments HEMOGLOBIN ABG (test code = HGB/ABG) 8.0 G/DL 12.5-16.9 L [id number] 10:12:00 Test Item Value Reference Range Interpretation Comments HEMATOCRIT (test code = HCT/ABG) 24 % 37.5-50.7 L POC LACTIC [id number] 10:12:00 Test Item Value Reference Range Interpretation Comments POC LACTIC ACID (test code = 1.3 mmol/l 0.9-1.7 N POCLAC) GLUCOSE [id number] 06:10:00 Test Item Value Reference Range Interpretation Comments GLUCOSE BEDSIDE (test 146 MG/DL 70-110 H Perfor med by certified code = GLUBED) 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 operator at [facility] GLUCOSE [id number] 05:27:00 Test Item Value Reference Range Interpretation Comments GLUCOSE BEDSIDE (test 129 MG/DL 70-110 H Perfor med by certified code = GLUBED) 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 operator at [facility] BASIC METABOLIC [id number] 04:28:00 Test Item Value Reference Range Interpretation [...] 8.0-10.5 N CA) COMMENTS: POD #1HEPATIC FUNCTION [id number] 04:28:00 Test Item Value Reference Range Interpretation [...] 20-125 N code = ALKP) COMMENTS: POD #[id number] 04:28:00 Test Item Value Reference Range Interpretation Comments PHOSPHOROUS (test code = PHOS) 3.8 MG/DL 2.5-4.9 N COMMENTS: POD #[id number] 04:28:00 Test Item Value Reference Range Interpretation Comments MAGNESIUM (test code = MAG) 2.32 mg/dL 1.80-2.40 N COMMENTS: POD #1CALCIUM [id number] 04:28:00 Test Item Value Reference Range Interpretation Comments CALCIUM IONIZED (test code = FABIAN) 1.14 MMOL/L 1.09-1.30 N COMMENTS: POD #1CBC W/AUTO [id number] 03:50:00 Test Item Value Reference Range Interpretation [...] NO code = MDIFF) POC ARTERIAL BLOOD [id number] 03:36:00 Test Item Value Reference Range Interpretation Comments POC ARTERIAL BLOOD GAS PH (test 7.408 7.35-7.45 N code = POCPHA) POC ARTERIAL BLOOD GAS PCO2 (test 42.4 mmHg 35.0-45 N code = ENJJSX3U) POC TCO2 ARTERIAL (test code = 28.1 POCTCO2) POC ARTERIAL BLOOD GAS PO2 (test 62.6 mmHg 80-100.0 L code = DQTAD7B) POC HCO3 ARTERIAL (test code = 26.8 MMOL/L 22.0-26.0 H NESHNP4C) POC BASE EXCESS (test code = 2.1 MMOL/L -4.0-4.0 N POCBEA) POC O2 SATURATION (test code = 91.7 % 90-100 N POCO2S) ABG DELIVERY (test code = JH) HFNC ABG SITE (test code = SITEA) Art Line BASIC METABOLIC [id number] 03:36:00 Test Item Value Reference Range Interpretation [...] = POCGLU) 111 MG/DL 70-110 H HEMOGLOBIN [id number] 03:36:00 Test Item Value Reference Range Interpretation Comments HEMOGLOBIN ABG (test code = HGB/ABG) 8.3 G/DL 12.5-16.9 L [id number] 03:36:00 Test Item Value Reference Range Interpretation Comments HEMATOCRIT (test code = HCT/ABG) 24 % 37.5-50.7 L POC LACTIC [id number] 03:36:00 Test Item Value Reference Range Interpretation Comments POC LACTIC ACID (test code = 0.7 mmol/l 0.9-1.7 L POCLAC) GLUCOSE [id number] 02:29:00 Test Item Value Reference Range Interpretation Comments GLUCOSE BEDSIDE (test 87 MG/DL 70-110 N Perfor med by certified code = GLUBED) 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 operator at [facility] - XR CHEST 1 [id number] 00:00:00 [facility] 1940 Sex: M FAX: Radha Ward MD [phone] [place]: St: [facility] FAX: [place] [phone] FAX: Ana Toribio [phone] Name: SHERRI ARCE [facility] Pedro Guerrier : 1940 Age/S: 81/M [address] [place] [address] Unit #: [id number] Loc: G[address] [place] [address] Phys: Rosalind Puentes 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 Flannery at 07/10/2022 8:36 AM FOOD SERVICE ASSOCIATE. at 0837 Reported and signed by: Babak Ratliff M.D. Report PROCEDURE INFORMATION: Exam: XR Chest Exam date and time: 07/10/2022 5:24 AM Age: 81 years old Clinical indication: Other: Cardiac surgery post opTECHNIQUE: Imaging protocol: Radiologic exam of the chest. Views: 1 view. COMPARISON: 1. CR XR ACNRH3D 07/09/2022 4:56 AM 2. 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 2. Stable pulmonary opacities likely combination of airspace disease and atelectasis. 3. Stable small pleural effusions. 4. Stable postoperative cardiomediastinal silhouette. at 0830 Reported and signed by: Babak Ratliff M.D. CC: Radha Ward MD; [place] DO; Rosalind Toribio NP Technologist: RAYMUNDO Campbell) Jhon nscrd Date/Time/By: 07/10/2022 (0830) : By: Robert Orig Print D/T: S: 07/10/2022 (0831) PAGE 2 Signed ReportBASIC METABOLIC [id number] 23:54:00 Test Item Value Reference Range Interpretation [...] = POCGLU) 152 MG/DL 70-110 H HEMOGLOBIN [id number] 23:54:00 Test Item Value Reference Range Interpretation Comments HEMOGLOBIN ABG (test code = HGB/ABG) 8.1 G/DL 12.5-16.9 L [id number] 23:54:00 Test Item Value Reference Range Interpretation Comments HEMATOCRIT (test code = HCT/ABG) 24 % 37.5-50.7 L POC LACTIC [id number] 23:54:00 Test Item Value Reference Range Interpretation Comments POC LACTIC ACID (test code = 0.6 mmol/l 0.9-1.7 L POCLAC) POC VENOUS BLOOD [id number] 23:54:00 Test Item Value Reference Range Interpretation Comments POC VENOUS BLOOD GAS PH (test 7.361 7.33-7.45 N code = POCPHV) POC VENOUS BLOOD GAS PCO2 (test 46.8 mmHg 43-47 N code = BPEBPE5R) POC VENOUS BLOOD GAS PO2 (test 33.2 mmHG 10-50 N code = LGYZW8Z) POC TCO2 VENOUS (test code = 27.9 NUAZYV8J) POC HCO3 VENOUS (test code = 26.5 MMOL/L 22-27 N RNQDAN2J) POC BASE EXCESS VENOUS (test code 1.1 MMOL/L -4.0-4.0 N = POCBEV) POC O2 SATURATION VENOUS (test 61.0 % 60-80 N code = GJSK4NZ) VENOUS BLOOD GAS DELIVERY (test HFNC code = DELV) VENOUS BLOOD GAS SITE (test code Shabbona Ally = SITEV) BASIC METABOLIC [id number] 22:13:00 Test Item Value Reference Range Interpretation [...] the recommended for lucretia for GFRby the [facility] on for Adults.The GFR will not calculate if th e sex is unknown or if thepatient's ag e is <18 years. CREATININE (test 2.8 mg/dL 0.6-1.3 H code = CREAT) CALCIUM (test code = 7.9 mg/dL 8.0-10.5 L CA) [id number] 22:13:00 Test Item Value Reference Range Interpretation Comments PHOSPHOROUS (test code = PHOS) 4.1 MG/DL 2.5-4.9 N [id number] 22:13:00 Test Item Value Reference Range Interpretation Comments MAGNESIUM (test code = MAG) 2.25 mg/dL 1.80-2.40 N CALCIUM [id number] 22:13:00 Test Item Value Reference Range Interpretation Comments CALCIUM IONIZED (test code = FABIAN) 1.11 MMOL/L 1.09-1.30 N POC ARTERIAL BLOOD [id number] 21:34:00 Test Item Value Reference Range Interpretation Comments POC ARTERIAL BLOOD GAS PH (test 7.373 7.35-7.45 N code = POCPHA) POC ARTERIAL BLOOD GAS PCO2 (test 43.6 mmHg 35.0-45 N code = HMAALD7S) POC TCO2 ARTERIAL (test code = 26.8 POCTCO2) POC ARTERIAL BLOOD GAS PO2 (test 69.7 mmHg 80-100.0 L code = GGBVA3B) POC HCO3 ARTERIAL (test code = 25.4 MMOL/L 22.0-26.0 N EBVUFA2L) POC BASE EXCESS (test code = 0.2 MMOL/L -4.0-4.0 N POCBEA) POC O2 SATURATION (test code = 93.2 % 90-100 N POCO2S) ABG DELIVERY (test code = JH) HFNC ABG SITE (test code = SITEA) Art Line BASIC METABOLIC [id number] 21:34:00 Test Item Value Reference Range Interpretation [...] = POCGLU) 132 MG/DL 70-110 H HEMOGLOBIN [id number] 21:34:00 Test Item Value Reference Range Interpretation Comments HEMOGLOBIN ABG (test code = HGB/ABG) 7.8 G/DL 12.5-16.9 L [id number] 21:34:00 Test Item Value Reference Range Interpretation Comments HEMATOCRIT (test code = HCT/ABG) 23 % 37.5-50.7 L POC LACTIC [id number] 21:34:00 Test Item Value Reference Range Interpretation Comments POC LACTIC ACID (test code = 0.8 mmol/l 0.9-1.7 L POCLAC) GLUCOSE [id number] 20:28:00 Test Item Value Reference Range Interpretation Comments GLUCOSE BEDSIDE (test 104 MG/DL 70-110 N Perfor med by certified code = GLUBED) 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 operator at [facility] POC ARTERIAL BLOOD [id number] 18:43:00 Test Item Value Reference Range Interpretation Comments POC ARTERIAL BLOOD GAS PH (test 7.346 7.35-7.45 L code = POCPHA) POC ARTERIAL BLOOD GAS PCO2 (test 45.9 mmHg 35.0-45 H code = RXPKLC8V) POC TCO2 ARTERIAL (test code = 26.5 POCTCO2) POC ARTERIAL BLOOD GAS PO2 (test 50.5 mmHg 80-100.0 L code = UFHJT9D) POC HCO3 ARTERIAL (test code = 25.1 MMOL/L 22.0-26.0 N YCUKXR1Z) POC BASE EXCESS (test code = -0.6 MMOL/L -4.0-4.0 N POCBEA) POC O2 SATURATION (test code = 83.1 % 90-100 L POCO2S) ABG DELIVERY (test code = JH) Room Air ABG SITE (test code = SITEA) R Radial BASIC METABOLIC [id number] 18:43:00 Test Item Value Reference Range Interpretation [...] = POCGLU) 115 MG/DL 70-110 H HEMOGLOBIN [id number] 18:43:00 Test Item Value Reference Range Interpretation Comments HEMOGLOBIN ABG (test code = HGB/ABG) 8.3 G/DL 12.5-16.9 L [id number] 18:43:00 Test Item Value Reference Range Interpretation Comments HEMATOCRIT (test code = HCT/ABG) 25 % 37.5-50.7 L POC LACTIC [id number] 18:43:00 Test Item Value Reference Range Interpretation Comments POC LACTIC ACID (test code = 1.1 mmol/l 0.9-1.7 N POCLAC) BASIC METABOLIC [id number] 16:20:00 Test Item Value Reference Range Interpretation [...] the recommended for lucretia for GFRby the [facility] on for Adults.The GFR will not calculate if th e sex is unknown or if thepatient's ag e is <18 years. CREATININE (test 3.2 mg/dL 0.6-1.3 H code = CREAT) CALCIUM (test code = 8.7 mg/dL 8.0-10.5 N CA) [id number] 16:20:00 Test Item Value Reference Range Interpretation Comments MAGNESIUM (test code = MAG) 2.28 mg/dL 1.80-2.40 N CALCIUM [id number] 16:20:00 Test Item Value Reference Range Interpretation Comments CALCIUM IONIZED (test code = FABIAN) 1.16 MMOL/L 1.09-1.30 N CBC W/AUTO [id number] 16:10:00 Test Item Value Reference Range Interpretation [...] (test NO code = MDIFF) BASIC METABOLIC [id number] 13:20:00 Test Item Value Reference Range Interpretation [...] the recommended for lucretia for GFRby the [facility] Foundati on for Adults.The GFR will not calculate if th e sex is unknown or if thepatient's ag e is <18 years. CREATININE (test 3.9 mg/dL 0.6-1.3 H code = CREAT) CALCIUM (test code = 7.8 mg/dL 8.0-10.5 L CA) [id number] 13:20:00 Test Item Value Reference Range Interpretation Comments PHOSPHOROUS (test code = PHOS) 4.3 MG/DL 2.5-4.9 N [id number] 13:20:00 Test Item Value Reference Range Interpretation Comments MAGNESIUM (test code = MAG) 2.37 mg/dL 1.80-2.40 N CALCIUM [id number] 13:20:00 Test Item Value Reference Range Interpretation Comments CALCIUM IONIZED (test code = FABIAN) 1.08 MMOL/L 1.09-1.30 L GLUCOSE [id number] 12:56:00 Test Item Value Reference Range Interpretation Comments GLUCOSE BEDSIDE (test 162 MG/DL 70-110 H Perfor med by certified code = GLUBED) 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 operator at [facility] POC ARTERIAL BLOOD [id number] 10:35:00 Test Item Value Reference Range Interpretation Comments POC ARTERIAL BLOOD GAS PH (test 7.351 7.35-7.45 N code = POCPHA) POC ARTERIAL BLOOD GAS PCO2 (test 45.1 mmHg 35.0-45 H code = GZFCTO2N) POC TCO2 ARTERIAL (test code = 26.3 POCTCO2) POC ARTERIAL BLOOD GAS PO2 (test 73.8 mmHg 80-100.0 L code = IJIPU4I) POC HCO3 ARTERIAL (test code = 25.0 MMOL/L 22.0-26.0 N PAQVCH6E) POC BASE EXCESS (test code = -0.6 MMOL/L -4.0-4.0 N POCBEA) POC O2 SATURATION (test code = 93.8 % 90-100 N POCO2S) ABG DELIVERY (test code = JH) Cannula ABG SITE (test code = SITEA) Art Line BASIC METABOLIC [id number] 10:35:00 Test Item Value Reference Range Interpretation [...] = POCGLU) 145 MG/DL 70-110 H HEMOGLOBIN [id number] 10:35:00 Test Item Value Reference Range Interpretation Comments HEMOGLOBIN ABG (test code = HGB/ABG) 7.3 G/DL 12.5-16.9 L [id number] 10:35:00 Test Item Value Reference Range Interpretation Comments HEMATOCRIT (test code = HCT/ABG) 21 % 37.5-50.7 L POC LACTIC [id number] 10:35:00 Test Item Value Reference Range Interpretation Comments POC LACTIC ACID (test code = 2.0 mmol/l 0.9-1.7 H POCLAC) GLUCOSE [id number] 08:55:00 Test Item Value Reference Range Interpretation Comments GLUCOSE BEDSIDE (test 154 MG/DL 70-110 H Perfor med by certified code = GLUBED) 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 operator at [facility] GLUCOSE [id number] 07:51:00 Test Item Value Reference Range Interpretation Comments GLUCOSE BEDSIDE (test 178 MG/DL 70-110 H Perfor med by certified code = GLUBED) 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 operator at [facility] CBC W/AUTO [id number] 03:38:00 Test Item Value Reference Range Interpretation [...] REQUIRED (test NO code = MDIFF) PLT [id number] 03:38:00 Test Item Value Reference Range Interpretation Comments PLATELET ESTIMATE (test 92 TO 115 THOUSAND ADEQUATE code = PLTEST) PLATELET MORPHOLOGY (test LARGE PLATELETS code = PLTMORPH) BASIC METABOLIC [id number] 03:38:00 Test Item Value Reference Range Interpretation [...] 8.0-10.5 N CA) COMMENTS: POD #1HEPATIC FUNCTION [id number] 03:38:00 Test Item Value Reference Range Interpretation [...] IUnit/L 20-125 code = ALKP) COMMENTS: POD #[id number] 03:38:00 Test Item Value Reference Range Interpretation Comments MAGNESIUM (test code = MAG) 2.45 mg/dL 1.80-2.40 H COMMENTS: POD #1BASIC METABOLIC [id number] 03:37:00 Test Item Value Reference Range Interpretation [...] = POCGLU) 229 MG/DL 70-110 H HEMOGLOBIN [id number] 03:37:00 Test Item Value Reference Range Interpretation Comments HEMOGLOBIN ABG (test code = HGB/ABG) 6.5 G/DL 12.5-16.9 L [id number] 03:37:00 Test Item Value Reference Range Interpretation Comments HEMATOCRIT (test code = HCT/ABG) 19 % 37.5-50.7 L POC LACTIC [id number] 03:37:00 Test Item Value Reference Range Interpretation Comments POC LACTIC ACID (test code = 5.9 mmol/l 0.9-1.7 HH POCLAC) POC VENOUS BLOOD [id number] 03:37:00 Test Item Value Reference Range Interpretation Comments MARYLU'S TEST (test code = ALLENS) N/A POC VENOUS BLOOD GAS PH (test 7.277 7.33-7.45 L code = POCPHV) POC VENOUS BLOOD GAS PCO2 (test 45.0 mmHg 43-47 N code = TPBPXV0G) POC VENOUS BLOOD GAS PO2 (test 35.4 mmHG 10-50 N code = HPVKQ4O) POC TCO2 VENOUS (test code = 22.4 HLUWIO2A) POC HCO3 VENOUS (test code = 21.0 MMOL/L 22-27 L IMNNMM7K) POC BASE EXCESS VENOUS (test code -5.8 MMOL/L -4.0-4.0 L = POCBEV) POC O2 SATURATION VENOUS (test 60.2 % 60-80 N code = DFDL6SK) VENOUS BLOOD GAS DELIVERY (test Cannula code = DELV) VENOUS BLOOD GAS TEMP (test code 98.6 F = TEMPV) VENOUS BLOOD GAS SITE (test code Colby Canales = SITEV) LACTIC [id number] 03:32:00 Test Item Value Reference Range Interpretation Comments LACTIC ACID (test 6.0 mmol/L 0.4-1.9 HH Critical r esult called code = LACT) to HALINA MedinaLA50 at 0 332 07/09/22Nurse taniya hdz back result and tech confirmed it's correct? YES POC ARTERIAL BLOOD [id number] 03:13:00 Test Item Value Reference Range Interpretation Comments POC ARTERIAL BLOOD GAS PH (test 7.310 7.35-7.45 L code = POCPHA) POC ARTERIAL BLOOD GAS PCO2 (test 42.8 mmHg 35.0-45 N code = ROWXKJ6X) POC TCO2 ARTERIAL (test code = 22.8 POCTCO2) POC ARTERIAL BLOOD GAS PO2 (test 73.2 mmHg 80-100.0 L code = OPGCI6O) POC HCO3 ARTERIAL (test code = 21.5 MMOL/L 22.0-26.0 L VRUNTJ5M) POC BASE EXCESS (test code = -4.7 MMOL/L -4.0-4.0 L POCBEA) POC O2 SATURATION (test code = 93.0 % 90-100 N POCO2S) ABG DELIVERY (test code = JH) Cannula ABG TEMPERATURE (test code = 98.6 F TEMPA) ABG SITE (test code = SITEA) Art Line MARYLU'S TEST (test code = ALLENS) N/A BASIC METABOLIC [id number] 03:13:00 Test Item Value Reference Range Interpretation [...] = POCGLU) 245 MG/DL 70-110 H HEMOGLOBIN [id number] 03:13:00 Test Item Value Reference Range Interpretation Comments HEMOGLOBIN ABG (test code = HGB/ABG) 7.0 G/DL 12.5-16.9 L [id number] 03:13:00 Test Item Value Reference Range Interpretation Comments HEMATOCRIT (test code = HCT/ABG) 21 % 37.5-50.7 L POC LACTIC [id number] 03:13:00 Test Item Value Reference Range Interpretation Comments POC LACTIC ACID (test code = 6.1 mmol/l 0.9-1.7 HH POCLAC) POC ARTERIAL BLOOD [id number] 03:01:00 Test Item Value Reference Range Interpretation Comments POC ARTERIAL BLOOD GAS PH (test 7.273 7.35-7.45 LL code = POCPHA) POC ARTERIAL BLOOD GAS PCO2 (test 46.4 mmHg 35.0-45 H code = XRZZHM3P) POC TCO2 ARTERIAL (test code = 23.1 POCTCO2) POC ARTERIAL BLOOD GAS PO2 (test 103.4 mmHg 80-100.0 H code = BALPE6Z) POC HCO3 ARTERIAL (test code = 21.6 MMOL/L 22.0-26.0 L XVEJNL7W) POC BASE EXCESS (test code = -5.4 [...] (test code = ALLENS) N/A BASIC METABOLIC [id number] 03:01:00 Test Item Value Reference Range Interpretation [...] = POCGLU) 206 MG/DL 70-110 H HEMOGLOBIN [id number] 03:01:00 Test Item Value Reference Range Interpretation Comments HEMOGLOBIN ABG (test code = HGB/ABG) 8.7 G/DL 12.5-16.9 L [id number] 03:01:00 Test Item Value Reference Range Interpretation Comments HEMATOCRIT (test code = HCT/ABG) 26 % 37.5-50.7 L POC LACTIC [id number] 03:01:00 Test Item Value Reference Range Interpretation Comments POC LACTIC ACID (test code = 3.6 mmol/l 0.9-1.7 H POCLAC) GLUCOSE [id number] 02:45:00 Test Item Value Reference Range Interpretation Comments GLUCOSE BEDSIDE (test 230 MG/DL 70-110 H Perfor med by certified code = GLUBED) 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 operator at [facility] LACTIC ACID 2ND [id number] 02:04:00 Test Item Value Reference Range Interpretation Comments LACTIC ACID 2ND REPEAT (test code 6.6 mmol/L 0.4-1.9 HH = LACT2) - XR CHEST 1 [id number] 00:00:00 [facility] 1940 Sex: M FAX: Radha Ward MD [phone] [place]: St: ADM FAX: [place] [phone] FAX: Ana Toribio [phone] Name: SHERRI ARCE [facility] : 1940 Age/S: 81/M [address] [place] [address] Unit #: [id number] Loc: G[address] [place] [address] Phys: Rosalind Puentes 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 Views: 1 view. COMPARISON: CR XR CHEST 1V 07/08/2022 7:14 PM FINDINGS: Tubes, catheters and devices: Endotracheal tube and enteric tube have been removed. Shabbona-Ally catheter tip at the level of pulmonary arterial bifurcation. Mediastinal and left thoracostomy drains in place. Lungs: Indistinct opacities in the perihilar regions and lung bases rede monstrated. The left hemidiaphragm is obscured. Pleural spaces: [...] Toribio NP Technologist: RT Britta(Taniya) Trnscrd Date/Time/By: 07/09/2022 (0955) : By: Robert Orig Print D/T: S: 07/09/2022 (0985) PAGE 1 [facility] 2022-07-08 23:43:00 Test Item Value Reference Range Interpretation Comments POC ARTERIAL BLOOD GAS PH (test 7.299 7.35-7.45 LL code = POCPHA) POC ARTERIAL BLOOD GAS PCO2 (test 41.3 mmHg 35.0-45 N code = UUIGJD5U) POC TCO2 ARTERIAL (test code = 21.5 POCTCO2) POC ARTERIAL BLOOD GAS PO2 (test 109.2 mmHg 80-100.0 H code = XGCTH2K) POC HCO3 ARTERIAL (test code = 20.3 MMOL/L 22.0-26.0 L LGVHPY2E) POC BASE EXCESS (test code = -6.2 MMOL/L -4.0-4.0 L POCBEA) POC O2 SATURATION (test code = 97.7 % 90-100 N POCO2S) ABG DELIVERY (test code = JH) Cannula ABG TEMPERATURE (test code = 98.6 F TEMPA) ABG SITE (test code = SITEA) Art Line MARYLU'S TEST (test code = ALLENS) N/A BASIC METABOLIC [id number] 23:43:00 Test Item Value Reference Range Interpretation [...] = POCGLU) 234 MG/DL 70-110 H HEMOGLOBIN [id number] 23:43:00 Test Item Value Reference Range Interpretation Comments HEMOGLOBIN ABG (test code = HGB/ABG) 7.7 G/DL 12.5-16.9 L [id number] 23:43:00 Test Item Value Reference Range Interpretation Comments HEMATOCRIT (test code = HCT/ABG) 23 % 37.5-50.7 L POC LACTIC [id number] 23:43:00 Test Item Value Reference Range Interpretation Comments POC LACTIC ACID (test code = 5.1 mmol/l 0.9-1.7 HH POCLAC) LACTIC ACID [id number] 22:54:00 Test Item Value Reference Range Interpretation Comments LACTIC ACID REPEAT (test code = 5.0 mmol/l 0.4-1.9 HH LACTR) BASIC METABOLIC [id number] 20:54:00 Test Item Value Reference Range Interpretation [...] = POCGLU) 190 MG/DL 70-110 H HEMOGLOBIN [id number] 20:54:00 Test Item Value Reference Range Interpretation Comments HEMOGLOBIN ABG (test code = HGB/ABG) 8.0 G/DL 12.5-16.9 L [id number] 20:54:00 Test Item Value Reference Range Interpretation Comments HEMATOCRIT (test code = HCT/ABG) 23 % 37.5-50.7 L POC LACTIC [id number] 20:54:00 Test Item Value Reference Range Interpretation Comments POC LACTIC ACID (test code = 2.5 mmol/l 0.9-1.7 H POCLAC) POC VENOUS BLOOD [id number] 20:54:00 Test Item Value Reference Range Interpretation Comments MARYLU'S TEST (test code = ALLENS) N/A POC VENOUS BLOOD GAS PH (test 7.265 7.33-7.45 L code = POCPHV) POC VENOUS BLOOD GAS PCO2 (test 48.5 mmHg 43-47 H code = BSJJIW6M) POC VENOUS BLOOD GAS PO2 (test 41.1 mmHG 10-50 N code = JZNDW7B) POC TCO2 VENOUS (test code = 23.9 GKRGJM5Y) POC HCO3 VENOUS (test code = 22.3 MMOL/L 22-27 N HKDHEB4X) POC BASE EXCESS VENOUS (test code -4.9 MMOL/L -4.0-4.0 L = POCBEV) POC O2 SATURATION VENOUS (test 72.4 % 60-80 N code = WVUH3NS) VENOUS BLOOD GAS FIO2 (test code 50 [...] SITE (test code Colby Canales = SITEV) CBC W/AUTO [id number] 20:37:00 Test Item Value Reference Range Interpretation [...] LY#) MANUAL DIFF REQUIRED NO SLIDE R INGRID, (test code = MDIFF) CONSISTE NT WITH [...] N code = NRBC#) COMMENTS: On arrivalPROTHROMBIN [id number] 20:37:00 Test Item Value Reference Range Interpretation [...] recurrent infar ct). COMMENTS: On arrivalTHROMBOPLASTIN TIME [id number] 20:37:00 Test Item Value Reference Range Interpretation Comments THROMBOPLASTIN TIME 31.3 Seconds 25.0-39.5 N Therape utic Range: PARTIAL (test code = 50.4 - 88.3 Seconds PTT) Effective 09/21/2018 COMMENTS: On arrivalBASIC METABOLIC [id number] 20:32:00 Test Item Value Reference Range Interpretation [...] 7.6 mg/dL 8.0-10.5 L CA) COMMENTS: On [id number] 20:32:00 Test Item Value Reference Range Interpretation Comments MAGNESIUM (test code = MAG) 2.53 mg/dL 1.80-2.40 H COMMENTS: On arrivalLACTIC [id number] 20:31:00 Test Item Value Reference Range Interpretation Comments LACTIC ACID (test code = LACT) 2.1 mmol/L 0.4-1.9 H POC ARTERIAL BLOOD [id number] 19:38:00 Test Item Value Reference Range Interpretation Comments POC ARTERIAL BLOOD GAS PH (test 7.263 7.35-7.45 LL code = POCPHA) POC ARTERIAL BLOOD GAS PCO2 44.1 mmHg 35.0-45 N (test code = SPEXSW3C) POC TCO2 ARTERIAL (test code = 21.5 POCTCO2) POC ARTERIAL BLOOD GAS PO2 (test 111.1 mmHg 80-100.0 H code = ZQITN4E) POC HCO3 ARTERIAL (test code = 20.1 MMOL/L 22.0-26.0 L AEWFXL7O) POC BASE EXCESS (test code = -7.1 MMOL/L -4.0-4.0 L POCBEA) POC O2 SATURATION (test code = 97.7 % 90-100 N POCO2S) FIO2 (test code = FIO2A) 50 % PaO2/FiO2 (test code = OVR3HIX2) 222.20 mm/Hg ABG DELIVERY (test code = JH) Adult Vent ABG VENT MODE (test code = AC MODEA) ABG VENT RESP RATE (test code = 16 /MIN RRA) ABG TIDAL VOLUME (test code = 450 ml TVA) ABG PEEP (test code = PEEPA) 5 cmH2O ABG TEMPERATURE (test code = 97.3 F TEMPA) ABG SITE (test code = SITEA) Art Line BASIC METABOLIC [id number] 19:38:00 Test Item Value Reference Range Interpretation [...] = POCGLU) 201 MG/DL 70-110 H HEMOGLOBIN [id number] 19:38:00 Test Item Value Reference Range Interpretation Comments HEMOGLOBIN ABG (test code = HGB/ABG) 8.3 G/DL 12.5-16.9 L [id number] 19:38:00 Test Item Value Reference Range Interpretation Comments HEMATOCRIT (test code = HCT/ABG) 24 % 37.5-50.7 L POC LACTIC [id number] 19:38:00 Test Item Value Reference Range Interpretation Comments POC LACTIC ACID (test code = 2.1 mmol/l 0.9-1.7 H POCLAC) [id number] 18:50:00 Test Item Value Reference Range Interpretation Comments ACT-ISTAT (test code 143 SEC 74-137 H Perform ed by certified = ACTI) 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 operator at [facility] POC ARTERIAL BLOOD [id number] 18:46:00 Test Item Value Reference Range Interpretation Comments POC ARTERIAL BLOOD GAS PH (test 7.313 7.35-7.45 L code = POCPHA) POC ARTERIAL BLOOD GAS PCO2 (test 36.8 mmHg 35.0-45 N code = FEUQRG4Q) POC TCO2 ARTERIAL (test code = 19.8 POCTCO2) POC ARTERIAL BLOOD GAS PO2 (test 375.0 mmHg 80-100.0 HH code = PLFNP2G) POC HCO3 ARTERIAL (test code = 18.7 MMOL/L 22.0-26.0 L EPQUVC7W) POC BASE EXCESS (test code = -6.9 MMOL/L -4.0-4.0 L POCBEA) POC O2 SATURATION (test code = 99.9 % 90-100 N POCO2S) BASIC METABOLIC [id number] 18:46:00 Test Item Value Reference Range Interpretation [...] = POCGLU) 181 MG/DL 70-110 H HEMOGLOBIN [id number] 18:46:00 Test Item Value Reference Range Interpretation Comments HEMOGLOBIN ABG (test code = HGB/ABG) 7.5 G/DL 12.5-16.9 L [id number] 18:46:00 Test Item Value Reference Range Interpretation Comments HEMATOCRIT (test code = HCT/ABG) 22 % 37.5-50.7 L POC LACTIC [id number] 18:46:00 Test Item Value Reference Range Interpretation Comments POC LACTIC ACID (test code = 2.5 mmol/l 0.9-1.7 H POCLAC) [id number] 17:57:00 Test Item Value Reference Range Interpretation Comments ACT-ISTAT (test code 522 SEC 74-137 H Perform ed by certified = ACTI) 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 operator at [facility] POC ARTERIAL BLOOD [id number] 17:50:00 Test Item Value Reference Range Interpretation Comments POC ARTERIAL BLOOD GAS PH (test 7.432 7.35-7.45 N code = POCPHA) POC ARTERIAL BLOOD GAS PCO2 (test 33.6 mmHg 35.0-45 L code = EUDYXW6D) POC TCO2 ARTERIAL (test code = 23.4 POCTCO2) POC ARTERIAL BLOOD GAS PO2 (test 404.5 mmHg 80-100.0 HH code = YDGPT6G) POC HCO3 ARTERIAL (test code = 22.4 MMOL/L 22.0-26.0 N FOQRAK3O) POC BASE EXCESS (test code = -1.6 MMOL/L -4.0-4.0 N POCBEA) POC O2 SATURATION (test code = 100.0 % 90-100 N POCO2S) BASIC METABOLIC [id number] 17:50:00 Test Item Value Reference Range Interpretation [...] = POCGLU) 171 MG/DL 70-110 H HEMOGLOBIN [id number] 17:50:00 Test Item Value Reference Range Interpretation Comments HEMOGLOBIN ABG (test code = HGB/ABG) 7.7 G/DL 12.5-16.9 L [id number] 17:50:00 Test Item Value Reference Range Interpretation Comments HEMATOCRIT (test code = HCT/ABG) 23 % 37.5-50.7 L POC LACTIC [id number] 17:50:00 Test Item Value Reference Range Interpretation Comments POC LACTIC ACID (test code = 1.8 mmol/l 0.9-1.7 H POCLAC) [id number] 17:32:00 Test Item Value Reference Range Interpretation Comments ACT-ISJOSET (test code 636 SEC 74-137 H Perform ed by certified = CURTIS) 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 operator at [facility] POC ARTERIAL BLOOD [id number] 17:23:00 Test Item Value Reference Range Interpretation Comments POC ARTERIAL BLOOD GAS PH (test 7.401 7.35-7.45 N code = POCPHA) POC ARTERIAL BLOOD GAS PCO2 (test 33.4 mmHg 35.0-45 L code = CGIVMA9D) POC TCO2 ARTERIAL (test code = 21.7 POCTCO2) POC ARTERIAL BLOOD GAS PO2 (test 327.7 mmHg 80-100.0 HH code = JZATL5N) POC HCO3 ARTERIAL (test code = 20.7 MMOL/L 22.0-26.0 L OXOZJH2Q) POC BASE EXCESS (test code = -3.6 MMOL/L -4.0-4.0 N POCBEA) POC O2 SATURATION (test code = 99.9 % 90-100 N POCO2S) BASIC METABOLIC [id number] 17:23:00 Test Item Value Reference Range Interpretation [...] = POCGLU) 171 MG/DL 70-110 H HEMOGLOBIN [id number] 17:23:00 Test Item Value Reference Range Interpretation Comments HEMOGLOBIN ABG (test code = HGB/ABG) 8.6 G/DL 12.5-16.9 L [id number] 17:23:00 Test Item Value Reference Range Interpretation Comments HEMATOCRIT (test code = HCT/ABG) 25 % 37.5-50.7 L POC LACTIC [id number] 17:23:00 Test Item Value Reference Range Interpretation Comments POC LACTIC ACID (test code = 1.2 mmol/l 0.9-1.7 N POCLAC) [id number] 16:57:00 Test Item Value Reference Range Interpretation Comments MARYCHUY (test code 648 SEC 74-137 H Perform ed by certified = ACTI) 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 operator at [facility] POC ARTERIAL BLOOD [id number] 16:46:00 Test Item Value Reference Range Interpretation Comments POC ARTERIAL BLOOD GAS PH (test 7.355 7.35-7.45 N code = POCPHA) POC ARTERIAL BLOOD GAS PCO2 (test 43.3 mmHg 35.0-45 N code = HIBZNN7K) POC TCO2 ARTERIAL (test code = 25.5 POCTCO2) POC ARTERIAL BLOOD GAS PO2 (test 469.8 mmHg 80-100.0 HH code = JVJFJ3F) POC HCO3 ARTERIAL (test code = 24.2 MMOL/L 22.0-26.0 N ACIRQN7X) POC BASE EXCESS (test code = -1.3 MMOL/L -4.0-4.0 N POCBEA) POC O2 SATURATION (test code = 100.0 % 90-100 N POCO2S) BASIC METABOLIC [id number] 16:46:00 Test Item Value Reference Range Interpretation [...] = POCGLU) 169 MG/DL 70-110 H HEMOGLOBIN [id number] 16:46:00 Test Item Value Reference Range Interpretation Comments HEMOGLOBIN ABG (test code = HGB/ABG) 8.4 G/DL 12.5-16.9 L [id number] 16:46:00 Test Item Value Reference Range Interpretation Comments HEMATOCRIT (test code = HCT/ABG) 25 % 37.5-50.7 L POC LACTIC [id number] 16:46:00 Test Item Value Reference Range Interpretation Comments POC LACTIC ACID (test code = 0.6 mmol/l 0.9-1.7 L POCLAC) [id number] 16:00:00 Test Item Value Reference Range Interpretation Comments ACT-ISTAT (test code 606 SEC 74-137 H Perform ed by certified = ACTI) 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 operator at [facility] [id number] 15:50:00 Test Item Value Reference Range Interpretation Comments HEMATOCRIT (test code = HCT/ABG) 32 % 37.5-50.7 L POC LACTIC [id number] 15:50:00 Test Item Value Reference Range Interpretation Comments POC LACTIC ACID (test code = 0.8 mmol/l 0.9-1.7 L POCLAC) POC ARTERIAL BLOOD [id number] 15:50:00 Test Item Value Reference Range Interpretation Comments POC ARTERIAL BLOOD GAS PH (test 7.262 7.35-7.45 LL code = POCPHA) POC ARTERIAL BLOOD GAS PCO2 (test 49.5 mmHg 35.0-45 H code = BOCLGD8W) POC TCO2 ARTERIAL (test code = 23.8 POCTCO2) POC ARTERIAL BLOOD GAS PO2 (test 458.7 mmHg 80-100.0 HH code = TTKJC7M) POC HCO3 ARTERIAL (test code = 22.3 MMOL/L 22.0-26.0 N WIRRWM2M) POC BASE EXCESS (test code = -4.8 MMOL/L -4.0-4.0 L POCBEA) POC O2 SATURATION (test code = 100.0 % 90-100 N POCO2S) BASIC METABOLIC [id number] 15:50:00 Test Item Value Reference Range Interpretation [...] = POCGLU) 141 MG/DL 70-110 H HEMOGLOBIN [id number] 15:50:00 Test Item Value Reference Range Interpretation Comments HEMOGLOBIN ABG (test code = 10.8 G/DL 12.5-16.9 L HGB/ABG) [id number] 15:07:00 Test Item Value Reference Range Interpretation Comments ACT-ISTAT (test code 137 SEC 74-137 N Perform ed by certified = ACTI) 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 operator at [facility] POC ARTERIAL BLOOD [id number] 14:52:00 Test Item Value Reference Range Interpretation Comments POC ARTERIAL BLOOD GAS PH (test 7.330 7.35-7.45 L code = POCPHA) POC ARTERIAL BLOOD GAS PCO2 (test 40.0 mmHg 35.0-45 N code = GWVKHD4W) POC TCO2 ARTERIAL (test code = 22.3 POCTCO2) POC ARTERIAL BLOOD GAS PO2 (test 487.7 mmHg 80-100.0 HH code = YBFAY9Y) POC HCO3 ARTERIAL (test code = 21.1 MMOL/L 22.0-26.0 L OHJJQR7S) POC BASE EXCESS (test code = -4.5 MMOL/L -4.0-4.0 L POCBEA) POC O2 SATURATION (test code = 100.0 % 90-100 N POCO2S) BASIC METABOLIC [id number] 14:52:00 Test Item Value Reference Range Interpretation [...] = POCGLU) 88 MG/DL 70-110 N HEMOGLOBIN [id number] 14:52:00 Test Item Value Reference Range Interpretation Comments HEMOGLOBIN ABG (test code = 11.3 G/DL 12.5-16.9 L HGB/ABG) [id number] 14:52:00 Test Item Value Reference Range Interpretation Comments HEMATOCRIT (test code = HCT/ABG) 33 % 37.5-50.7 L POC LACTIC [id number] 14:52:00 Test Item Value Reference Range Interpretation Comments POC LACTIC ACID (test code = < 0.3 mmol/l 0.9-1.7 L POCLAC) PROTHROMBIN [id number] 06:01:00 Test Item Value Reference Range Interpretation [...] (to prevent recurrent infar ct). THROMBOPLASTIN TIME [id number] 06:01:00 Test Item Value Reference Range Interpretation Comments THROMBOPLASTIN TIME 31.8 Seconds 25.0-39.5 N Therape utic Range: PARTIAL (test code = 50.4 - 88.3 Seconds PTT) Effective 09/21/2018 COMPREHENSIVE METABOLIC [id number] 06:00:00 Test Item Value Reference Range Interpretation [...] 20-125 N TOTAL (test code = ALKP) [id number] 06:00:00 Test Item Value Reference Range Interpretation Comments PHOSPHOROUS (test code = PHOS) 3.8 MG/DL 2.5-4.9 N [id number] 06:00:00 Test Item Value Reference Range Interpretation Comments MAGNESIUM (test code = MAG) 1.92 mg/dL 1.80-2.40 N CBC W/AUTO [id number] 05:48:00 Test Item Value Reference Range Interpretation [...] NO = MDIFF) - XR CHEST 1 [id number] 00:00:00 [facility] 1940 Sex: M FAX: Radha Ward MD [phone] [place]: St: ADM FAX: [place] [phone] FAX: Ana Toribio [phone] Name: SHERRI ARCE [facility] : 1940 Age/S: 81/M [address] [place] [address] Unit #: [id number] Loc: G[address] [place] [address] Phys: Rosalind Puentes 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 A right IJ Shabbona-Ally catheter tip projects overlying the midline cardiac silhouette. An NG tube tip is in the expected loca tion of the stomach. Pleural spaces: A left chest tube is present. No pleural effusion. No pneumothorax. Heart/Mediastinum: The cardiac silhouette is enlarged. Previous midline sternotomy. Bones/joints: Unremarkable. IMPRESSION: Postoperative change with minimal vascular congestion and bibasilar pulmonary opacities. at 1955 Reported and signed by: Herb Strong M.D. CC: Radha Ward MD; [place] DO; Rosalind Toribio NP Technologist: Elton Mccray Date/Time/By: 07/08/2022 (1955) : By: Sudhir Orig Print D/T: S: 07/08/2022 (1955) PAGE 1 Signed ReportGLUCOSE [id number] 18:27:00 Test Item Value Reference Range Interpretation Comments GLUCOSE BEDSIDE (test 112 MG/DL 70-110 H Perfor med by certified code = GLUBED) 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 operator at [facility] GLUCOSE [id number] 12:36:00 Test Item Value Reference Range Interpretation Comments GLUCOSE BEDSIDE (test 97 MG/DL 70-110 N Perfor med by certified code = GLUBED) 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 operator at [facility] PROTHROMBIN [id number] 06:05:00 Test Item Value Reference Range Interpretation [...] (to prevent recurrent infar ct). THROMBOPLASTIN TIME [id number] 06:05:00 Test Item Value Reference Range Interpretation Comments THROMBOPLASTIN TIME 33.5 Seconds 25.0-39.5 N Therape utic Range: PARTIAL (test code = 50.4 - 88.3 Seconds PTT) Effective 09/21/2018 B-TYPE NATRIURETIC [id number] 04:25:00 Test Item Value Reference Range Interpretation Comments B-TYPE NATRIURETIC PEPTIDE (test 161.0 PG/ML 0-100 H code = BNP) COMPREHENSIVE METABOLIC [id number] 04:13:00 Test Item Value Reference Range Interpretation [...] 20-125 N TOTAL (test code = ALKP) [id number] 04:13:00 Test Item Value Reference Range Interpretation Comments PHOSPHOROUS (test code = PHOS) 4.1 MG/DL 2.5-4.9 N [id number] 04:13:00 Test Item Value Reference Range Interpretation Comments MAGNESIUM (test code = MAG) 1.75 mg/dL 1.80-2.40 L CBC W/AUTO [id number] 03:57:00 Test Item Value Reference Range Interpretation [...] NO = MDIFF) COVID 19 Asymptomatic IH [id number] 15:22:00 Test Item Value Reference Range Interpretation [...] high or waivedcomplexit y tests. BASIC METABOLIC [id number] 05:37:00 Test Item Value Reference Range Interpretation [...] race indifferent and is the recommended for lurcetia for GFRby the Nat nal Kidney Foundati on for Adults.The GFR will not calculate if th e sex is unknown or if thepatient's ag e is <18 years. CREATININE (test 4.4 mg/dL 0.6-1.3 H code = CREAT) CALCIUM (test code = 8.4 mg/dL 8.0-10.5 N CA) [id number] 05:37:00 Test Item Value Reference Range Interpretation Comments PHOSPHOROUS (test code = PHOS) 3.9 MG/DL 2.5-4.9 N [id number] 05:37:00 Test Item Value Reference Range Interpretation Comments MAGNESIUM (test code = MAG) 1.75 mg/dL 1.80-2.40 L CBC W/AUTO [id number] 05:25:00 Test Item Value Reference Range Interpretation [...] DIFF REQUIRED (test code NO = MDIFF) [id number] 10:01:00 Test Item Value Reference Range Interpretation Comments MAGNESIUM (test code = MAG) 2.07 mg/dL 1.80-2.40 ACUTE HEPATITIS [id number] 08:13:00 Test Item Value Reference Range Interpretation Comments AB HEPATITIS A IGM (test NON REACTIVE INDEX NON REACT. code = HAVMAB) AG HEPATITIS B SURFACE NON REACTIVE INDEX NonReactive (test code = HBSAG) AB HEPATITIS B CORE IGM NON REACTIVE INDEX NON REACT. (test code = HBCMAB) AB HEPATITIS C (test code NON REACTIVE INDEX NON REACT. = HCVAB) AB HEPATITIS B [id number] 08:13:00 Test Item Value Reference Range Interpretation Comments AB HEPATITIS B 3.7 mIU/mL See_Comment L Status of Im munity SURFACE (test code = Anti-HB s Level HBSAB) --- I nconsis tent with Immun ity 0.0 - 9.9Consistent with Immunity >9.9Pe rformed At: [facility] [address] [place], [place] [id number] Kyle L MD Ph:[phone] [Automated mess age] The system ELERTS generated this result transmitted ref erence range: Immunity >9.9. The reference r shree was not used to interpret this result as normal/abnor mal. BASIC METABOLIC [id number] 05:34:00 Test Item Value Reference Range Interpretation [...] the recommended for lucretia for GFRby the [facility] for Adults.The GFR will not calculate if th e sex is unknown or if thepatient's ag e is <18 years. CREATININE (test 5.4 mg/dL 0.6-1.3 H code = CREAT) CALCIUM (test code = 8.1 mg/dL 8.0-10.5 N CA) CBC W/AUTO [id number] 05:19:00 Test Item Value Reference Range Interpretation [...] (test code NO = MDIFF) BASIC METABOLIC [id number] 05:16:00 Test Item Value Reference Range Interpretation [...] code = 7.8 mg/dL 8.0-10.5 L CA) [id number] 05:16:00 Test Item Value Reference Range Interpretation Comments PHOSPHOROUS (test code = PHOS) 4.0 MG/DL 2.5-4.9 N [id number] 05:16:00 Test Item Value Reference Range Interpretation Comments MAGNESIUM (test code = MAG) 1.40 mg/dL 1.80-2.40 L CBC W/AUTO [id number] 05:09:00 Test Item Value Reference Range Interpretation [...] (test code NO = MDIFF) UR SODIUM [id number] 11:10:00 Test Item Value Reference Range Interpretation Comments UR SODIUM RANDOM 67 MEQ/L The Referen ce Range and (test code = SIMONE) Method Per formance specificationsh ave not been established for this fluid. The test result should be correlated into the clinical context forinte rpretation. UR PROTEIN [id number] 11:10:00 Test Item Value Reference Range Interpretation Comments UR PROTEIN RANDOM (test code = 129 mg/dL PROTU) UR CREATININE [id number] 11:10:00 Test Item Value Reference Range Interpretation Comments UR CREATININE 36.2 mg/dL The Reference Range and RANDOM (test code Method Per formance = CREATU) specificationsh ave not been establishe d for this fluid. The test resultshould be correlated into the clinical contex t forinterpretati on. UA RFLX MICR CULT IF [id number] 11:05:00 Test Item Value Reference Range Interpretation [...] Indication for culture: Flank PainSpecimen Description: CLEAN QXTOVSETA1B% 2022-07-03 10:50:00 Test Item Value Reference Range [...] (test code = LDL) NEAR OPTIM AL/ABOVE [id number] 89 HIGH>EM=957 VE RY HIGH*Guidelines provided by the [facility] terol EducationProgra Adult Treatment Panel III THYROID STIMULATING [id number] 08:08:00 Test Item Value Reference Range Interpretation Comments THYROID STIMULATING 3.33 0.42-5.47 N Results in HORMONE (test code = TSH) mi lli-International Units/mL BASIC METABOLIC [id number] 08:08:00 Test Item Value Reference Range Interpretation [...] HGBA1C%) 5.2 %A1C 4.8-6.0 N CBC W/AUTO [id number] 07:17:00 Test Item Value Reference Range Interpretation [...] REQUIRED (test code NO = MDIFF) - RETROPERITONEAL [id number] 00:00:00 [facility] 1940 Sex: M Name: SHERRI ARCE [facility] : 1940 Age/S: 81 / M [address] [place] [address] Unit #: [id number] Loc: [place] [address] Phys: Evelina Plaza MD Acct: [id number] Dis Date: Status: ADM IN PHONE #: [phone] Exam Date: 07/03/2022 1208 FAX #: [phone] Reason: claudette EXAMS: CPT CODE: [id number] US RETROPERITONEAL COM [id number] PROCEDURE INFORMATION: Exam: US Retroperitoneal; Complete; Kidneys and Bladder Exam date and time: 07/03/2022 11:22 AM Age: 81 years old Clinical indication: Other: Claudette TECHNIQUE:Imaging protocol: Real-time ultrasound of the retroperitoneum with [...] thinning. Left kidney: Measures 14.6 cm.There is s evere left hydronephrosis with cortical thinning. Intraperitoneal space: [...] MD; Los Crawford DO Technologist: Goran Art Trnnvb Date/Time: 07/03/2022 (1551) [id number] Orig Print D/T: S: 07/03/2022 (2692) Probe: PAGE 1 Signed Report- DUP EXTRACRANIAL [id number] 00:00:00 [facility] : 1940 Sex: M Name: SHERRI ARCE [facility] : 1940 Age/S: 81 / M [address] [place] [address] Blvd Unit #: [id number] Loc: [place] [address] Phys: Gianna Hoover Acct: [id number] Dis Date: Status: ADM IN PHONE #: [phone] Exam Date: 07/03/2022 1208 FAX #: [phone] Reason: PRE CABG WORKUP EXAMS: CPT CODE: [id number] DUP EXTRACRANIAL WOJCIECH 81107 PROCEDURE INFORMATION: Exam: US Duplex Bilateral Extracranial Ar teries, Carotid Arteries Exam date and time: 07/03/2022 [...] on criteria defined by the Society of Radiologistsin Ultrasound (SRU). Normal is no stenosis. Mild is less than 50% stenosis. Moderate is 50-69% stenosis. Severe is greater than 69% stenosis to near occlusion. Near occlusion is a markedly narrowed lumen. Total occlusion is no detectable patent lumen. at 1255 Reported and signed by: Brett Berry M.D. PAGE 1 Signed Report (CONTINUED) Name: [facility] : 1940 Age/S: 81 / M [address] [place] [address] Unit #: [id number] Loc: [place] [address] Phys: Gianna Hoover Acct: [id number] Dis Date: Status: ADM IN PHONE #: [phone] Exam Date: 07/03/2022 120 FAX #: [phone] Reason: PRE CABG WORKUP EXAMS: CPT CODE: [id number] DUP EXTRACRANIAL WOJCIECH 48313 (Continued) CC: Los Crawford DO; Gianna LIZARRAGA Technologist: Goran Art Trnscb Date/Time: 07/03/2022 (125) [email or web address] Orig Print D/T:S: 07/03/2022 (1256) Probe: PAGE 2 Signed Report- CT CHEST W/O [id number] 00:00:00 [facility]: SHERRI ARCE : 1940 Sex: M Name: [facility] : 1940 Age/S: 81 / M [address] [place] [address] Unit #: [id number] Loc: [place] [address] Phys: Gianna Hoover Acct: [id number] Dis Date: Status: ADM IN PHONE #: [phone] Exam Date: 07/03/2022 1227 FAX #: [phone] Reason: PRE CABG WORKUP EXAMS: CPT CODE: [id number] CT CHEST W/O CONTRAST 97425 PROCEDURE INFORMATION: Exam: CT Chest Without Contrast; [...] M.D. CC: Los Crawford DO; Gianna LIZARRAGA Technologist:RT Jalyn(R)(CT) CTDI: DLP: Trnscb Date/Time: 07/03/2022 (1313) tOLGA Orig Print D/T: S: 07/03/2022 (1083) PAGE 1 Signed Report- KORINA VIDAL [id number] 00:00:00 [facility]: 1940 Sex: M Name: SHERRI ARCE [facility] : 1940 Age/S: 81 / M [address] [place] [address] Unit #: [id number] Loc: [place] [address] Phys: Gianna Hoover Acct: [id number] Dis Date: Status: ADM IN PHONE #: [phone] Exam Date: 07/03/2022 1207 FAX #: [phone] Reason: VEIN MAPPING AND R/O DVT EXAMS: CPT CODE: [id number] DUP VEIN WOJCIECH 47400 PROCEDURE INFORMATION: Exam: US Duplex Lower Extremity Veins; Ve in mapping Exam date and time: 07/03/2022 11:32 [...] the lower thigh, 0.17 mm in the upp er calf, 0.21 mm in the mid calf, [...] saphenous vein measures 0.24 mm in the upper thigh, 0.22 mm [...] Crawford DO; Gianna LIZARRAGA Technologist: Goran Art [facility] Date/Time: 07/03/2022 (1325) [email or web address] Orig Print D/T: S: 07/03/2022 (1325) Probe: PAGE 1 Signed Report- XR CHEST 1 [id number] 00:00:00 [facility] : 1940 Sex: M FAX: Los Maldonado [phone] [place]: [facility]: [facility] FAX: Sarbjit Sherman [phone] Name: SHERRI ARCE [facility] : 1940 Age/S: 81/M [address] [place] [address] Unit #: [id number] Loc: [address] [place] [address] Phys: Sarbjit Mcarthur MD Acct: [id number] Dis Date: Status: ADM IN PHONE #: [phone] Exam Date: 07/02/20222144 FAX #: [phone] Reason: pre-op,cabg EXAMS: CPT CODE: [id number] XR CHEST 1 V 85639 PROCEDURE INFORMATION: Exam: XR Chest Exam date and time: 07/02/2022 9:34 PM Age: 81 years old Clinical indication: Pre-operative exam; Cardiovascular screening and respiratory [...] DO; Sarbjit Mcarthur MD Technologist: RT Mary(Taniya) Trnscwaqas Date/Time/By: 07/03/2022 (307) : By: [email or web address] Orig Print D/T: S: 07/03/2022 (307) PAGE 1 Signed Report
[2022-08-06 11:43] LABS: Protime INR 1.11
--- NOTE | 2022-08-06 11:43 | RAD REPORT ---
EXAM DESCRIPTION: Domitila Single View3 11:34 am CLINICAL HISTORY: Chest pain COMPARISON: June 2022 FINDINGS: Small left pleural effusion with left basilar atelectasis Right lung appears clear of acute infiltrate Heart is mildly to moderately enlarged. Postsurgical changes involve the chest Central venous catheter is in place
[2022-08-06 11:46] LABS: Absolute Lymphocytes (CBC) 0.7 K/uL (0.7-4.9); Hematocrit 24.9 % (39.6-49.0); Lymphocytes % 8.6 % (15.3-44.8); MCV 90.8 fL (80-100); MPV 8.5 fL (7.6-11.3); RBC Red Blood Cell Count 2.74 M/uL (4.33-5.43)
[2022-08-06 11:57] LABS: Urine Blood 2+ (Negative); Urine Glucose Negative (Negative); Urine Protein 2+ (Negative); Urine Specific Gravity 1.015 (1.005-1.030)
[2022-08-06 11:59] LABS: Albumin 3.3 g/dL (3.4-5.0); Bilirubin Direct 0.2 mg/dL (0-0.2); Bilirubin Total 0.4 mg/dL (0.2-1.0); Potassium 3.7 mmol/L (3.5-5.1); Protein, Total 7.6 g/dL (6.4-8.2); Troponin High Sensitivity 27.7 pg/mL (<58.9)
[2022-08-06 12:18] LABS: SARS-COV-2 RT PCR NEGATIVE (NEGATIVE)
[2022-08-06] MEDS ORDERED: LEVALBUTEROL 1.25 MG/3 ML NEB ONE (12:18)
[2022-08-06] MEDS ORDERED: CEFTRIAXONE 1000 MG/VIAL ONE (12:18)
[2022-08-06] MEDS ORDERED: METHYLPREDNISOLONE 125 MG INJ ONE (12:18)
[2022-08-06] MEDS ORDERED: NA CHLORIDE 0.9% 50 ML ONE (12:19)
[2022-08-06] MEDS ORDERED: IPRATROPIUM BROM 0.5MG/2.5ML ONE (12:19)
--- NOTE | 2022-08-06 13:34 | EDPHYS ---
Physician Documentation [facility] Name: [place] Strauss Age: 81 yrs Sex: Male : 1940 Arrival Date: 08/06/2022 Time: 10:39 Bed 18 Private MD: ED Physician Yuval Sy HPI: 08/06 11:44 This 81 yrs old Male presents to ER via EMS with complaints of Blood Pressure alyssa Problem. 11:44 cough congestion, weeks, took bp meds, possible lowered bp. alyssa Historical: - Allergies: 10:53 No Known Allergies; ph - Home Meds: 10:53 midodrine 10 mg oral tab 1 tab 3 times per day for symptomatic orthostatic hypotension ph [Active]; Bactrim DS 800-160 mg Oral tab 1 tab every 12 hours [Active]; furosemide 40 mg Oral tab 1 tab once daily [Active]; atorvastatin 40 mg oral tab 1 tab once daily [Active]; tamsulosin 0.4 mg oral cap 1 cap once daily [Active]; clopidogrel 75 mg oral tab 1 tab once daily [Active]; amiodarone 200 mg Oral tab 1 tab 2 times per day [Active]; - PMHx: 10:53 Dialysis; Hyperlipidemia; Hypertension; ph - PSHx: 10:53 bypass; cardiac stents; ph - Immunization history:: Adult Immunizations up to date, Client reports receiving the 2nd dose of the Covid vaccine, Pneumococcal vaccine is up to date, Flu vaccine is up to date. - Social history:: Smoking status: Patient/guardian denies using tobacco, but has a distant history of tobacco abuse. ROS: 11:47 Eyes: Negative for injury, pain, redness, and discharge, ENT: Negative for injury, alyssa pain, and discharge, Neck: Negative for injury, pain, and swelling, Cardiovascular: Negative for chest pain, palpitations, and edema, Abdomen/GI: Negative for abdominal pain, nausea, vomiting, diarrhea, and constipation, Back: Negative for injury and pain, : Negative for injury, bleeding, discharge, and swelling, MS/Extremity: Negative for injury and deformity, Skin: Negative for injury, rash, and discoloration, Neuro: Negative for headache, weakness, numbness, tingling, and seizure, Psych: Negative for depression, anxiety, suicide ideation, homicidal ideation, and hallucinations, Allergy/Immunology: Negative for hives, rash, and allergies, Endocrine: Negative for neck swelling, polydipsia, polyuria, polyphagia, and marked weight changes, Hematologic/Lymphatic: Negative for swollen nodes, abnormal bleeding, and unusual bruising. 11:47 Constitutional: Positive for malaise. 11:47 Respiratory: Positive for cough, shortness of breath, at rest. Exam: 11:47 Constitutional: This is a well developed, well nourished patient who is awake, alert, alyssa and in no acute distress. Head/Face: Normocephalic, atraumatic. Eyes: Pupils equal round and reactive to light, extra-ocular motions intact. Lids and lashes normal. Conjunctiva and sclera are non-icteric and not injected. Cornea within normal limits. Periorbital areas with no swelling, redness, or edema. ENT: Nares patent. No nasal discharge, no septal abnormalities noted. Tympanic membranes are normal and external auditory canals are clear. Oropharynx with no redness, swelling, or masses, exudates, or evidence of obstruction, uvula midline. Mucous membranes moist. Neck: Trachea midline, no thyromegaly or masses palpated, and no cervical lymphadenopathy. Supple, full range of motion without nuchal rigidity, or vertebral point tenderness. No Meningismus. Chest/axilla: Normal chest wall appearance and motion. Nontender with no deformity. No lesions are appreciated. Cardiovascular: Regular rate and rhythm with a normal S1 and S2. No gallops, murmurs, or rubs. Normal PMI, no JVD. No pulse deficits. Abdomen/GI: Soft, non-tender, with normal bowel sounds. No distension or tympany. No guarding or rebound. No evidence of tenderness throughout. Back: No spinal tenderness. No costovertebral tenderness. Full range of motion. Male : Normal genitalia with no discharge or lesions. Skin: Warm, dry with normal turgor. Normal color with no rashes, no lesions, and no evidence of cellulitis. MS/ Extremity: Pulses equal, no cyanosis. Neurovascular intact. Full, normal range of motion. Neuro: Awake and alert, GCS 15, oriented to person, place, time, and situation. Cranial nerves II-XII grossly intact. Motor strength 5/5 in all extremities. Sensory grossly intact. Cerebellar exam normal. Normal gait. Psych: Awake, alert, with orientation to person, place and time. Behavior, mood, and affect are within normal limits. 11:47 ECG was reviewed by the Attending Physician. 11:47 Respiratory: mild respiratory distress is noted, Respirations: normal, no acute changes, Breath sounds: bronchial sounds, decreased breath sounds, rhonchi, that are mild. Vital Signs: 10:49 BP 112 / 55; Pulse 75; Resp 18; Temp 97.8; Pulse Ox 93% on R/A; Weight 87 kg; Height 6 ph ft. 0 in. (182.88 cm); 11:25 BP 108 / 61; Pulse 71; Pulse Ox 100% ; ap3 12:26 BP 100 / 50; Pulse 70; Pulse Ox 100% on R/A; ap3 12:43 BP 114 / 53; Pulse 76; Pulse Ox 99% on R/A; ap3 13:16 BP 111 / 76 Supine; Pulse 81; ap3 13:19 BP 94 / 49 Sitting; Pulse 87; ap3 13:21 BP 80 / 38 Standing; Pulse 85; ap3 13:22 BP 104 / 50 Supine; Pulse 75; ap3 13:59 BP 128 / 55; Pulse 75; Pulse Ox 98% on R/A; ap3 14:43 BP 126 / 74; Pulse 80; Pulse Ox 98% on R/A; ap3 16:11 BP 137 / 59; Pulse 79; Pulse Ox 97% on R/A; ap3 10:49 Body Mass Index 26.01 (87.00 kg, 182.88 cm) ph MDM: 10:43 Patient medically screened. [facility] 08/06 10:47 Order name: Basic Metabolic Panel; Complete Time: 12:37 [facility] 08/06 10:47 Order name: CBC with Diff; Complete Time: 12:37 [facility] 08/06 10:47 Order name: LFT's; Complete Time: 12:37 [facility] 08/06 10:47 Order name: Magnesium; Complete Time: 12:37 [facility] 08/06 10:47 Order name: NT PRO-BNP; Complete Time: 12:37 [facility] 08/06 10:47 Order name: PT-INR; Complete Time: 12:37 [facility] 08/06 10:47 Order name: Troponin HS; Complete Time: 12:37 [facility] 08/06 10:47 Order name: XRAY Chest (1 view); Complete Time: 12:37 [facility] 08/06 10:47 Order name: EKG; Complete Time: 10:49 [facility] 08/06 10:47 Order name: Cardiac monitoring; Complete Time: 10:58 [facility] 08/06 10:47 Order name: EKG - Nurse/Tech; Complete Time: 11:35 [facility] 08/06 10:47 Order name: IV Saline Lock; Complete Time: 11:23 [facility] 08/06 10:47 Order name: Labs collected and sent; Complete Time: 11:23 [facility] 08/06 10:47 Order name: O2 Per Protocol; Complete Time: 10:58 [facility] 08/06 10:47 Order name: O2 Sat Monitoring; Complete Time: 10:58 [facility] 08/06 10:47 Order name: Urine Dipstick-Ancillary (obtain specimen); Complete Time: 11:57 [facility] 08/06 10:47 Order name: Urine Culture [facility] 08/06 10:47 Order name: COVID-19/FLU A+B; Complete Time: 12:37 alyssa 08/06 10:47 Order name: Lactate w/ 2H reflex if indic.; Complete Time: 12:37 [facility] 08/06 10:47 Order name: Blood Culture Adult (2) [facility] 08/06 10:47 Order name: Lipase; Complete Time: 12:37 [facility] 08/06 11:57 Order name: Urine Dipstick-Ancillary; Complete Time: 12:37 [facility] 08/06 12:38 Order name: Orthostatics; Complete Time: 13:25 alyssa EC:47 Rate is 70 beats/min. Rhythm is regular. QRS [place] is Normal. [place] interval is normal. QRS alyssa interval is normal. QT interval is normal. No Q waves. T waves are Normal. No ST changes noted. Clinical impression: Abnormal EKG without significant change and No evidence of ischemia. Interpreted by me. Reviewed by me. Administered Medications: 11:35 Drug: NS 0.9% 1000 ml Route: IV; Rate: 75 ml/hr; Site: left antecubital; ap3 16:11 Follow up: IV Status: Completed infusion ap3 12:24 Drug: Xopenex (levalbuterol) 2.5 mg Route: Inhalation; ap3 12:24 Drug: AtroVENT (ipratropium) Aerosol 0.5 mg Route: Inhalation; ap3 12:24 Drug: SOLU-Medrol (methylPrednisoLONE) 125 mg Route: IVP; Site: left antecubital; ap3 13:00 Follow up: Response: No adverse reaction ap3 12:24 Drug: Rocephin (cefTRIAXone) 1 grams Route: IV; Rate: per protocol; Site: right ap3 antecubital; 13:00 Follow up: IV Status: Completed infusion ap3 15:39 Drug: midodrine 10 mg Route: PO; ap3 15:53 Follow up: Response: No adverse reaction ap3 Disposition Summary: 08/06/22 13:33 Hospitalization Ordered Hospitalization Status: Observation alyssa Provider: Surya Lugo cha Location: Telemetry/MedSurg (observation) alyssa Condition: Fair alyssa Problem: new alyssa Symptoms: have improved alyssa Bed/Room Type: Standard [facility] Room Assignment: 205(08/06/22 15:44) bp Diagnosis - Weakness alyssa - Hypotension, unspecified alyssa - End stage renal disease - ON HD ,TH, SAT alyssa Discharge Instructions: - Discharge Summary Sheet alyssa - Hypotension alyssa - Urinary Tract Infection, Adult alyssa - Weakness alyssa - Urinary Tract Infection, Adult, Fqnc-cb-Sxri alyssa - Dialysis alyssa - Vascular Access for Hemodialysis alyssa - Hypotension, Akkj-hu-Tfkv alyssa - Weakness, Xmxy-sw-Qjne alyssa - Eating Plan for Dialysis, Srox-zp-Knsk alyssa - Deconditioning alyssa Forms: - Medication Reconciliation Form alyssa - SBAR form alyssa Prescriptions: - albuterol sulfate 90 mcg/actuation Inhalation HFA aerosol inhaler - inhale 2 puff by INHALATION route every 4-6 hours; 1 Pump; Refills: 0, Product alyssa Selection Permitted - Cipro 250 mg Oral Tablet - take 1 tablet by ORAL route every 12 hours; 14 tablet; Refills: 0, Product alyssa Selection Permitted Signatures: Dispatcher [employer] Yuval Sorensen MD MD cha Hall, Patricia RN RN Rory Cage RN RN bp Prokisch, Amanda, RN RN ap3 Corrections: (The following items were deleted from the chart) 15:42 13:33 alyssa bp 15:44 15:42 405 bp bp
--- NOTE | 2022-08-06 13:34 | ER ---
Nurse's Notes [facility] Name: [place] Age: 81 yrs Sex: Male : 1940 Arrival Date: 08/06/2022 Time: 10:39 Bed 18 Private MD: Diagnosis: Weakness;Hypotension, unspecified;End stage renal disease-ON HD ,, SAT Presentation: 08/06 10:49 Chief complaint: EMS states: Pt had 5 stents placed on Jul 18, was prescribed ph multiple BP medications, this morning his BP was 98 systolic and pt took his BP medication, reports dizziness, BP for EMS 98/52, breath sounds w/ crackles, Spo2 92% RA, placed on 2L NC and improved to 98%, is a dialysis pt, last dialysis yesterday. Coronavirus screen: Vaccine status: Patient reports receiving the 2nd dose of the covid vaccine. Ebola Screen: No symptoms or risks identified at this time. Initial Sepsis Screen: Does the patient meet any 2 criteria? No. Patient's initial sepsis screen is negative. Does the patient have a suspected source of infection? Yes: Productive cough/pneumonia. Risk Assessment: Do you want to hurt yourself or someone else? Patient reports no desire to harm self or others. Onset of symptoms was August 06, 2022. 10:49 Method Of Arrival: EMS: [facility] 10:49 Acuity: SHI 2 ph Triage Assessment: 10:59 General: Appears in no apparent distress. comfortable, Behavior is calm, cooperative, ph appropriate for age, Denies fever. Pain: Denies pain. Neuro: Level of Consciousness is awake, alert, obeys commands, Oriented to person, place, time, situation, Reports dizziness, when standing or ambulating. Cardiovascular: Reports lightheadedness, Denies chest pain, Capillary refill < 3 seconds in bilateral fingers Patient's skin is warm and dry. Rhythm is sinus rhythm. Respiratory: Reports cough that is Airway is patent Respiratory effort is even, unlabored, Respiratory pattern is regular, symmetrical, Breath sounds are coarse bilaterally. GI: No signs and/or symptoms were reported involving the gastrointestinal system. : Waters in place to gravity drainage leg bag in place. Derm: Skin is pink, warm \T\ dry. Musculoskeletal: Circulation, motion, and sensation intact. Range of motion: intact in all extremities. Historical: - Allergies: 10:53 No Known Allergies; ph - Home Meds: :53 midodrine 10 mg oral tab 1 tab 3 times per day for symptomatic orthostatic hypotension ph [Active]; Bactrim DS 800-160 mg Oral tab 1 tab every 12 hours [Active]; furosemide 40 mg Oral tab 1 tab once daily [Active]; atorvastatin 40 mg oral tab 1 tab once daily [Active]; tamsulosin 0.4 mg oral cap 1 cap once daily [Active]; clopidogrel 75 mg oral tab 1 tab once daily [Active]; amiodarone 200 mg Oral tab 1 tab 2 times per day [Active]; - PMHx: :53 Dialysis; Hyperlipidemia; Hypertension; ph - PSHx: :53 bypass; cardiac stents; ph - Immunization history:: Adult Immunizations up to date, Client reports receiving the 2nd dose of the Covid vaccine, Pneumococcal vaccine is up to date, Flu vaccine is up to date. - Social history:: Smoking status: Patient/guardian denies using tobacco, but has a distant history of tobacco abuse. Screenin:01 [facility] ED Fall Risk Assessment (Adult) History of falling in the last 3 months, ph including since admission No falls in past 3 months (0 pts) Confusion or Disorientation No (0 pts) Intoxicated or Sedated No (0 pts) Impaired Gait No (0 pts) Mobility Assist Device Used No (0 pt) Altered Elimination Yes (1 pt) Score/Fall Risk Level 0 - 2 = Low Risk Oriented to surroundings, Maintained a safe environment, Hourly rounding (assess needs \T\ fall precautionary measures) done. Abuse screen: Denies threats or abuse. Denies injuries from another. Nutritional screening: No deficits noted. Tuberculosis screening: No symptoms or risk factors identified. Assessment: 15:52 Reassessment: nurse attempted to call report to receiving nurse. nurse was informed ap3 receiving nurse would return call for report. 16:10 Reassessment: report given to receiving nurse. ap3 Vital Signs: 10:49 BP 112 / 55; Pulse 75; Resp 18; Temp 97.8; Pulse Ox 93% on R/A; Weight 87 kg; Height 6 ph ft. 0 in. (182.88 cm); 11:25 BP 108 / 61; Pulse 71; Pulse Ox 100% ; ap3 12:26 BP 100 / 50; Pulse 70; Pulse Ox 100% on R/A; ap3 12:43 BP 114 / 53; Pulse 76; Pulse Ox 99% on R/A; ap3 13:16 BP 111 / 76 Supine; Pulse 81; ap3 13:19 BP 94 / 49 Sitting; Pulse 87; ap3 13:21 BP 80 / 38 Standing; Pulse 85; ap3 13:22 BP 104 / 50 Supine; Pulse 75; ap3 13:59 BP 128 / 55; Pulse 75; Pulse Ox 98% on R/A; ap3 14:43 BP 126 / 74; Pulse 80; Pulse Ox 98% on R/A; ap3 16:11 BP 137 / 59; Pulse 79; Pulse Ox 97% on R/A; ap3 10:49 Body Mass Index 26.01 (87.00 kg, 182.88 cm) ph ED Course: 10:39 Patient arrived in ED. ph 10:43 Yuval Sy MD is Attending Physician. alyssa 10:53 Triage completed. ph 10:57 Carmen Hui, JENISE is Primary Nurse. ap3 11:00 Arm band placed on Patient placed in an exam room, on a stretcher, on cardiac specialist, ph on pulse oximetry. 11:01 Patient has correct armband on for positive identification. Placed in gown. Bed in low ph position. Call light in reach. Side rails up X2. Client placed on continuous cardiac and pulse oximetry monitoring. NIBP monitoring applied. Door closed. Noise minimized. Warm blanket given. 11:10 First set of blood cultures drawn by me. ap3 11:16 Second set of blood cultures drawn by me. ap3 11:16 Initial lab(s) drawn, by me, sent to lab. COVID swab sent to lab. Flu and/or RSV swab ap3 sent to lab. 11:24 Inserted saline lock: 20 gauge in left antecubital area, using aseptic technique. Blood ap3 collected. 11:35 XRAY Chest (1 view) In Process Unspecified. EDMS 13:32 Surya Lugo MD is Hospitalizing Provider. alyssa 15:53 No provider procedures requiring assistance completed. Patient admitted, IV remains in ap3 place. Administered Medications: 11:35 Drug: NS 0.9% 1000 ml Route: IV; Rate: 75 ml/hr; Site: left antecubital; ap3 16:11 Follow up: IV Status: Completed infusion ap3 12:24 Drug: Xopenex (levalbuterol) 2.5 mg Route: Inhalation; ap3 12:24 Drug: AtroVENT (ipratropium) Aerosol 0.5 mg Route: Inhalation; ap3 12:24 Drug: SOLU-Medrol (methylPrednisoLONE) 125 mg Route: IVP; Site: left antecubital; ap3 13:00 Follow up: Response: No adverse reaction ap3 12:24 Drug: Rocephin (cefTRIAXone) 1 grams Route: IV; Rate: per protocol; Site: right ap3 antecubital; 13:00 Follow up: IV Status: Completed infusion ap3 15:39 Drug: midodrine 10 mg Route: PO; ap3 15:53 Follow up: Response: No adverse reaction ap3 Medication: 11:01 VIS not applicable for this client. ph Outcome: 13:33 Decision to Hospitalize by Provider. [facility] 15:53 Condition: good ap3 15:53 Instructed on the need for admit. 16:10 Admitted to Med/surg accompanied by tech. ap3 16:59 Patient left the ED. ap3 Signatures: Dispatcher [employer] EDYuval Russo MD MD cha Hall, Patricia, RN RN Carmen Adame RN RN ap3
[2022-08-06] MEDS ORDERED: MIDODRINE HCL 5 MG TABLET PO ONE (13:45)
[2022-08-06] MEDS ORDERED: ONDANSETRON 4 MG/2 ML VIAL IV PRN (15:37)
[2022-08-06] MEDS ORDERED: ACETAMINOPHEN 325 MG TABLET PO PRN (15:37)
--- NOTE | 2022-08-06 15:49 | P.HP ---
Certification for Inpatient Patient admitted to: Observation With expected LOS: <2 Midnights Patient will require the following post-hospital care: None Practitioner: I am a practitioner with admitting privileges, knowledge of patient current condition, hospital course, and medical plan of care. Services: Services provided to patient in accordance with Admission requirements found in Title 42 Section 412.3 of the Code of Federal Regulations Patient History Date of Service: 08/06/22 Reason for admission: Dizziness and lightheadedness History of Present Illness: Patient is a 81-year-old male with a past medical history significant for hypertension, ESRD, HLD, CABG, BPH who presents with complaint of dizziness and lightheadedness onset yesterday. Patient reported that he has been having cough and congestion for the past couple of weeks. Patient denies any other signs and symptoms. Symptoms are aggravated or relieved by nothing. Patient decided to present to the hospital due to worsening symptoms. Of note, patient reported that his SBP was in the low 90s and upper 80s yesterday. Allergies No Known Allergies Allergy (Verified 06/17/18 16:59) Home Medications: Atorvastatin Calcium [Lipitor] 20 mg PO DAILY 06/17/18 Smz./Tmp. [Bactrim Ds 800 MG/160 MG*] 1 tab PO Q12H 06/17/18 Tamsulosin [Flomax*] 1 cap PO DAILY 06/17/18 lisinopriL [Prinivil] 20 mg PO DAILY 06/17/18 levoFLOXacin [Levaquin] 500 mg PO DAILY #7 tab 06/20/18 - Past Medical/Surgical History Diabetic: No -: HTN -: hyperlipidemia -: BPH -: CHF -: HLD -: thyroidectomy -: testicle removal -: cataract sx -: CABG Psychosocial/ Personal History: Lives at home, alone - Family History Father -: Cancer Notes: bone ca Mother -: Heart disease Brother -: Heart disease - Social History Smoking Status: Former smoker Alcohol use: No CD- Drugs: No Caffeine use: No Place of Residence: Home Review of Systems General: Unremarkable Eyes: Unremarkable ENT: Unremarkable Respiratory: Unremarkable Cardiovascular: Light Headedness Gastrointestinal: Unremarkable Genitourinary: Unremarkable Musculoskeletal: Unremarkable Integumentary: Unremarkable Neurological: Other (Dizziness) Lymphatics: Unremarkable Physical Examination - Physical Exam General: Alert, In no apparent distress, Oriented x3, Cooperative HEENT: Atraumatic, PERRLA, Mucous membr. moist/pink, EOMI, Sclerae nonicteric Neck: Supple, 2+ carotid pulse no bruit, No LAD, Without JVD or thyroid abnormality Respiratory: Diminished Cardiovascular: No edema, Regular rate/rhythm, Normal S1 S2 Capillary refill: <2 Seconds Gastrointestinal: Normal bowel sounds, Soft and benign, No tenderness Musculoskeletal: No clubbing, No swelling, No contractures, No tenderness Integumentary: No rashes, No significant lesion Neurological: Normal speech, Normal tone, Normal affect Lymphatics: No axilla or inguinal lymphadenopathy - Studies Laboratory Data (last 24 hrs) 08/06/22 11:16: PT 12.2, INR 1.11 08/06/22 11:16: WBC 8.50, Hgb 8.2 L, Hct 24.9 L, Plt Count 221 08/06/22 11:16: Sodium 139, Potassium 3.7, BUN 39 H, Creatinine 4.86 H, Glucose 103, Magnesium 2.0, Total Bilirubin 0.4, AST 22, ALT 20, Alkaline Phosphatase 103, Lipase 102 H Assessment and Plan - Plan --Near Syncope. Likely secondary to hypotension. Carotid Doppler to rule out any carotid artery stenosis. We will get some metastatic vital signs. Continue supportive care -- ESRD. Nephrology consulted. Will await further recommendations. --Hypertension. Patient currently hypotensive. We will hold off on BP meds. Will continue to monitor BP levels --HLD. Continue statin. --History of CAD\CABG. continue aspirin, Plavix and statin. -- Anemia of chronic disease. H&H stable. We will continue to monitor hemoglobin and transfuse if less than 7.0. -- UTI POA. Continue antibiotics. Urine cultures pending. 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 Dialysis schedule per wax cutter. Continue supportive care. --DVT prophylaxis with heparin subQ Discharge Plan: Home - Advance Directives Does patient have a Living Will: No Does patient have a Durable POA for Healthcare: No - Code Status/Comfort Care Code Status Assessed: Yes Physician Review: Patient Assessed, Agree with Above Assessment and Plan Critical Care: No
--- NOTE | 2022-08-06 16:08 | P.PN ---
Brief Renal note (chart check only, full consult to follow by NLA team): Pt known to our service from recent hospitalization, see my note from late Jun and pt has since been accepted at [facility] for continued OP dialysis due to dialysis dependent renal failure. Pt has had some intra dialytic hypotension and weakness issues post CABG. Pt still has rowe in place as it was inserted back in Jun for chronic b/l hydro 2nd to presumed bladder outlet obstruction. Pt has not seen Urology yet. Pt seen on HD yesterday, tolerating session, BP was holding, UF goal was 1.5L. No gross volume overload seen and CXR here shows small pleural effusion. Labs on admission today are stable. Weakness likely multifactorial, pt is anemic. Trend BP, pt has been on Midodrine. Tamsulosin was stopped as indwelling bladder catheter remains. Check cultures (blood and urine). Pls call if there are questions, Binh Greer MD, BLANCA
[2022-08-06 18:32] LABS: Magnesium 1.8 mg/dL (1.6-2.4); Thyroid Stimulating Hormone 2.13 uIU/mL (0.358-3.740)
[2022-08-06] MEDS: MIDODRINE HCL 5 MG TABLET PO SCH (21:00)
[2022-08-06] MEDS ORDERED: POTASSIUM CL SA 10 MEQ TAB PO ONE (21:00)
[2022-08-06] MEDS: HEPARIN 5000 UNIT/ML 1 ML VIAL SQ SCH (21:00)
[2022-08-06 22:51] LABS: Urine Bacteria None Seen /HPF (<20); Urine Bilirubin NEGATIVE (Negative); Urine Blood 1+ (Negative); Urine Clarity Clear (Clear); Urine Color Light-Yellow (Yellow); Urine Glucose 3+ (Negative); Urine Protein 2+ (Negative); Urine RBC <5 /HPF (None Seen); Urine Urobilinogen Normal (Normal); Urine pH 6.5 (5.0-7.0)
[2022-08-07 06:16] LABS: Absolute Lymphocytes (CBC) 0.6 K/uL (0.7-4.9); Hematocrit 22.8 % (39.6-49.0); Lymphocytes % 5.6 % (15.3-44.8); MCV 90.3 fL (80-100); MPV 8.6 fL (7.6-11.3); RBC Red Blood Cell Count 2.52 M/uL (4.33-5.43)
[2022-08-07 06:27] LABS: Potassium 3.9 mmol/L (3.5-5.1)
--- NOTE | 2022-08-07 08:38 | RAD REPORT ---
EXAM DESCRIPTION: - CP - 08/06/2022 11:40 pm CLINICAL HISTORY: Near syncope COMPARISON: No comparisons TECHNIQUE: Real-time sonographic evaluation of both carotid systems was performed. Doppler interroga tion was performed with waveform tracing bilaterally. FINDINGS: Normal high resistance waveforms are noted in both external carotid arteries. The common c arotid arteries and internal carotid arteries show normal low resistance waveforms. Mixed hard and soft plaque is present in both at the carotid bulbs. Peak systolic and end diastolic v elocity values and the ICA/CCA ratios are in the non-hemodynamically significant range. Antegrade flow seen in both vertebral arteries. IMPRESSION: No evidence of a hemodynamically significant stenosis. Mixed hard and soft plaque is pre sent at the carotid bulbs.
--- NOTE | 2022-08-07 08:45 | RAD REPORT ---
EXAM DESCRIPTION: CT - Head Brain Wo Cont - 08/07/2022 6:55 am CLINICAL HISTORY: 81 years Male dizziness TECHNIQUE: Axial noncontrast CT head with coronal and sagittal reformats. All CT scans at this [facility] it use dose modulation, iterative reconstruction, and/or weight based dosing when appropriate to red uce radiation dose to as low as reasonably achievable. COMPARISON: None. FINDINGS: Brain: Parenchymal volume loss. Chronic small vessel disease. No obvious large acute tracey torial infarction. No intracranial hemorrhage, midline shift, mass or mass effect. Ventricles: No hydrocephalus. Orbits: Unremarkable. Sinuses: Mild mucosal thickening of the bilateral ethmoid sinuses, small air-fluid levels in the bila teral sphenoid and maxillary sinuses. Mastoid: Clear. Osseous: Unremarkable. Soft tissues: Unremarkable. IMPRESSION: 1. No acute intracranial abnormality. 2. Paranasal sinus disease as above. Electronically signed by: Dk Rice MD 08/07/2022 6:47 AM ALLIANCE CONSULTANT Due to temporary technical issues with the PACS/Fluency reporting system, reports are being signed by the in house radiologists without review as a courtesy to insure prompt reporting. The interpreting radiologist is fully responsible for the content of the report.
[2022-08-07] MEDS ORDERED: ASPIRIN 81 MG CHEWABLE TABLET PO SCH (09:00)
[2022-08-07] MEDS ORDERED: CLOPIDOGREL 75 MG TABLET PO SCH (09:00)
[2022-08-07] MEDS ORDERED: CEFTRIAXONE 1,000 MG in NA CHLORIDE 0.9% 50 ML IVPB SCH (09:00)
[2022-08-07 09:12] VITALS: O2SAT 98
[2022-08-07] MEDS: HEPARIN 5000 UNIT/ML 1 ML VIAL SQ SCH (09:13)
[2022-08-07] MEDS: MIDODRINE HCL 5 MG TABLET PO SCH ×2 (09:13→13:34)
--- NOTE | 2022-08-07 10:09 | P.CNS ---
Date of Consult: 08/07/22 Reason for Consult: ESRD Requesting Physician: Surya Lugo Chief Complaint: Dizziness and lightheadedness History of Present Illness: Patient is a 81-year-old male with a past medical history significant for hyper tension, ESRD, HLD, CABG, BPH who presents with complaint of dizziness and lightheadedness onset yesterday. Patient reported that he has been having cough and congestion for the past couple of weeks. Patient denies any other signs and symptoms. Symptoms are aggravated or relieved by nothing. Patient decided to present to the hospital due to worsening symptoms. Of note, patient reported that his SBP was in the low 90s and upper 80s yesterday. 11:44 This 81 yrs old Male presents to ER via EMS with complaints of Blood Pressure alyssa Problem. 11:44 cough congestion, weeks, took bp meds, possible lowered bp. Allergies No Known Allergies Allergy (Verified 06/17/18 16:59) Home medications list reviewed: Yes Home Medications: Smz./Tmp. [Bactrim Ds 800 MG/160 MG*] 1 tab PO BID 06/17/18 Tamsulosin [Flomax*] 1 cap PO BEDTIME 06/17/18 Acetaminophen [Tylenol] 640 mg PO Q6HP PRN 08/06/22 Amiodarone HCl [Cordarone Tab] 200 mg PO BID 08/06/22 Aspirin Chewable [Aspirin Chewable*] 81 mg PO DAILY 08/06/22 Atorvastatin Calcium 40 mg PO BEDTIME 08/06/22 Clopidogrel Bisulfate [Plavix] 75 mg PO DAILY 08/06/22 Furosemide [Lasix] 40 mg PO DAILY 08/06/22 Midodrine HCl 10 mg PO TID 08/06/22 - Past Medical/Surgical History Diabetic: No -: Chronic hypotension -: ESRD (Dr. Greer/ Dr. Marin) -: BPH -: CHF -: HLD -: thyroidectomy -: testicle removal -: cataract sx -: CABG Psychosocial/ Personal History: Lives at home, alone - Family History Father Medical History: Cancer Notes: bone ca Mother Medical History: Heart disease Brother Medical History: Heart disease - Social History Smoking Status: Former smoker Alcohol use: No CD- Drugs: No Caffeine use: No Place of Residence: Home Review of Systems 10-point ROS is otherwise unremarkable General: Weakness Respiratory: SOB with Excertion Physical Examination Temp Pulse Resp BP Pulse Ox 97.6 F 74 18 118/54 L 98 08/07/22 08:00 08/07/22 08:00 08/07/22 08:00 08/07/22 08:00 08/07/22 08:00 General: In no apparent distress, Oriented x3, Cooperative HEENT: Atraumatic Neck: Supple Respiratory: Clear to auscultation bilaterally Cardiovascular: No edema, Regular rate/rhythm Gastrointestinal: Soft and benign, Non-distended Musculoskeletal: No clubbing, No contractures Integumentary: No rashes, No cyanosis Neurological: Normal speech Laboratory Data (last 24 hrs) 08/06/22 11:16: PT 12.2, INR 1.11 08/06/22 11:16: WBC 8.50, Hgb 8.2 L, Hct 24.9 L, Plt Count 221 08/06/22 11:16: Sodium 139, Potassium 3.7, BUN 39 H, Creatinine 4.86 H, Glucose 103, Magnesium 2.0, Total Bilirubin 0.4, AST 22, ALT 20, Alkaline Phosphatase 103, Lipase 102 H Imagings Data: EXAM DESCRIPTION: [facility]08/06/2022 11:34 am CLINICAL HISTORY: Chest pain COMPARISON: June 2022 FINDINGS: Small left pleural effusion with left basilar atelectasis Right lung appears clear of acute infiltrate Heart is mildly to moderately enlarged. Postsurgical changes involve the chest Central venous catheter is in place EXAM DESCRIPTION: CT - Head Brain Wo Cont - 08/07/2022 6:55 am CLINICAL HISTORY: 81 years Male dizziness TECHNIQUE: Axial noncontrast CT head with coronal and sagittal reformats. All CT scans at this facility use dose modulation, iterative reconstruction, and/or weight based dosing when appropriate to reduce radiation dose to as low as reasonably achievable. COMPARISON: None. FINDINGS: Brain: Parenchymal volume loss. Chronic small vessel disease. No obvious large acute territorial infarction. No intracranial hemorrhage, midline shift, mass or mass effect. Ventricles: No hydrocephalus. Orbits: Unremarkable. Sinuses: Mild mucosal thickening of the bilateral ethmoid sinuses, small air- fluid levels in the bilateral sphenoid and maxillary sinuses. Mastoid: Clear. Osseous: Unremarkable. Soft tissues: Unremarkable. IMPRESSION: 1. No acute intracranial abnormality. 2. Paranasal sinus disease as above EXAM DESCRIPTION: US - CP - 08/06/2022 11:40 pm CLINICAL HISTORY: Near syncope COMPARISON: No comparisons TECHNIQUE: Real-time sonographic evaluation of both carotid systems was performed. Doppler interrogation was performed with waveform tracing bilaterally. FINDINGS: Normal high resistance waveforms are noted in both external carotid arteries. The common carotid arteries and internal carotid arteries show normal low resistance waveforms. Mixed hard and soft plaque is present in both at the carotid bulbs. Peak systolic and end diastolic velocity values and the ICA/CCA ratios are in the non-hemodynamically significant range. Antegrade flow seen in both vertebral arteries. IMPRESSION: No evidence of a hemodynamically significant stenosis. Mixed hard and soft plaque is present at the carotid bulbs. Conclusions/Impression: ESRD on HD Proteinuria -HD TIW -Acute HD today Chronic hypotension -Continue Midodrine Diastolic CHF, chronic -Low sodium diet -UF with HD as tolerated Anemia in CKD -Retacrit X1 CKD MBD -Start Ergo BPH with LUTS Urinary retention -Continue rowe -Plan to see urology soon Case reviewed with Dr. Lugo Thank you kindly for the consultation
[2022-08-07] MEDS ORDERED: EPOETIN ALFA-EPBX 10,000 UNIT/ML VIAL SQ ONE (10:15)
[2022-08-07] MEDS ORDERED: DRISDOL (VITAMIN D=ERGOCALCIFEROL) 50000 UNIT CAP PO SCH (11:00)
[2022-08-07] MEDS ORDERED: NA CHLORIDE 0.9% 1,000 ML IV PRN (11:16)
[2022-08-07] MEDS ORDERED: MANNITOL 25% 12.5 GM/50 ML VIAL IV PRN (11:16)
[2022-08-07] MEDS ORDERED: ALBUMIN HUMAN 25% 50 ML IV SCH (12:00)
[2022-08-07 13:03] VITALS: BP 114/64; TEMP 98.5
[2022-08-07] MEDS ORDERED: NEPRO SHAKE 237 ML CAN PO SCH (14:00)
[2022-08-07 15:43] VITALS: BMI 22.6
--- NOTE | 2022-08-07 17:29 | EKG ---
Test Date: 2022-08-06 Test Time: 11:30:30 Stereoptician: PH MEASUREMENT RESULTS: Intervals: Rate: 70 MN: 196 QRSD: 144 QT: 488 QTc: 527 [place]: P: 79 MN: 196 QRS: 78 T: -89 INTERPRETIVE STATEMENTS: Normal sinus rhythm Left bundle branch block Abnormal ECG Compared to ECG 06/30/2022 07:31:03 Atrial fibrillation no longer present Electronically Signed On 08-07-22 17:26:33 [employer] B [employer] by Mario Briseno
[2022-08-07] MEDS ORDERED: SMZ./TMP. 800/160 MG TABLET PO ONE (18:45)
--- NOTE | 2022-08-07 18:49 | P.DS ---
Admission Date: 08/06/22 Discharge Date: 08/07/22 Disposition: ROUTINE DISCHARGE Discharge Condition: GOOD Reason for Admission: Dizziness and lightheadedness Consultations: Nephrology Procedures: EXAM DESCRIPTION: Domitila Single View08/06/2022 11:34 am CLINICAL HISTORY: Chest pain COMPARISON: June 2022 FINDINGS: Small left pleural effusion with left basilar atelectasis Right lung appears clear of acute infiltrate Heart is mildly to moderately enlarged. Postsurgical changes involve the chest Central venous catheter is in place EXAM DESCRIPTION: CT - Head Brain Wo Cont - 08/07/2022 6:55 am CLINICAL HISTORY: 81 years Male dizziness TECHNIQUE: Axial noncontrast CT head with coronal and sagittal reformats. All CT scans at this facility use dose modulation, iterative reconstruction, and/or weight based dosing when appropriate to reduce radiation dose to as low as reasonably achievable. COMPARISON: None. FINDINGS: Brain: Parenchymal volume loss. Chronic small vessel disease. No obvious large acute territorial infarction. No intracranial hemorrhage, midline shift, mass or mass effect. Ventricles: No hydrocephalus. Orbits: Unremarkable. Sinuses: Mild mucosal thickening of the bilateral ethmoid sinuses, small air- fluid levels in the bilateral sphenoid and maxillary sinuses. Mastoid: Clear. Osseous: Unremarkable. Soft tissues: Unremarkable. IMPRESSION: 1. No acute intracranial abnormality. 2. Paranasal sinus disease as above EXAM DESCRIPTION: - - 08/06/2022 11:40 pm CLINICAL HISTORY: Near syncope COMPARISON: No comparisons TECHNIQUE: Real-time sonographic evaluation of both carotid systems was performed. Doppler interrogation was performed with waveform tracing bilaterally. FINDINGS: Normal high resistance waveforms are noted in both external carotid arteries. The common carotid arteries and internal carotid arteries show normal low resistance waveforms. Mixed hard and soft plaque is present in both at the carotid bulbs. Peak systolic and end diastolic velocity values and the ICA/CCA ratios are in the non-hemodynamically significant range. Antegrade flow seen in both vertebral arteries. IMPRESSION: No evidence of a hemodynamically significant stenosis. Mixed hard an d soft plaque is present at the carotid bulbs. Brief History of Present Illness: Patient is a 81-year-old male with a past medical history significant for hypertension, ESRD, HLD, CABG, BPH who presents with complaint of dizziness and lightheadedness onset yesterday. Patient reported that he has been having cough and congestion for the past couple of weeks. Patient denies any other signs and symptoms. Symptoms are aggravated or relieved by nothing. Patient decided to present to the hospital due to worsening symptoms. Of note, patient reported that his SBP was in the low 90s and upper 80s yesterday. Hospital Course: Patient was admitted with near syncope, low blood pressure, during discussion with attending physician it was noted that patient had accidentally taken one of his blood pressure medications rather than a dose of his midodrine which likely resulted in his low blood pressure. He has been stable throughout his h ospitalization and feeling much better today. His orthostatic vital signs were obtained this evening lying down blood pressure 144/68 heart rate 78 sitting 132/60 heart rate 88 standing blood pressure 120/69 heart rate 96. Orthostatics tightly positive although patient is asymptomatic and requesting to leave this evening stating he feels quite well. Of note previous urine culture showed Serratia Marcesecens which was sensitive to fluoroquinolones and Bactrim, patient has prolonged QTc on ECG for that reason he will be prescribed Bactrim at discharge for his catheter associated urinary tract infection that was present on admission. He is to follow-up with urology as he has an indwelling Waters catheter for further evaluation, nephrology for continuation of hemodialysis and his PCP within 1 week. Strict return precautions were given. Assessment Medication induced hypotension ESRD on HD Catheter associated urinary tract infection POA with urine culture positive for Serratia Marcesecens Orthostatic hypotension Chronic systolic congestive heart failure Vital Signs/Physical Exam: Temp Pulse Resp BP Pulse Ox 98.5 F 63 18 114/64 95 08/07/22 12:00 08/07/22 12:00 08/07/22 12:00 08/07/22 12:08/07/22 12:00 General: Alert, In no apparent distress, Oriented x3 HEENT: Atraumatic, PERRLA, EOMI Neck: Supple, JVD not distended Respiratory: Clear to auscultation bilaterally, Normal air movement Cardiovascular: Regular rate/rhythm, Normal S1 S2 Capillary refill: <2 Seconds Gastrointestinal: Normal bowel sounds, No tenderness Musculoskeletal: No tenderness Integumentary: No rashes Neurological: Normal speech, Normal tone, Normal affect Urinary: Waters catheter Laboratory Data at Discharge: WBC 10.50 K/uL (4.3-10.9) 08/07/22 05:44 Hgb 7.5 g/dL (13.6-17.9) L D 08/07/22 05:44 Hct 22.8 % (39.6-49.0) L 08/07/22 05:44 Plt Count 228 K/uL (152-406) 08/07/22 05:44 PT 12.2 SECONDS (9.5-12.5) 08/06/22 11:16 INR 1.11 08/06/22 11:16 Sodium 138 mmol/L (136-145) 08/07/22 05:44 Potassium 3.9 mmol/L (3.5-5.1) 08/07/22 05:44 BUN 56 mg/dL (7-18) H 08/07/22 05:44 Creatinine 5.56 mg/dL (0.70-1.30) H* 08/07/22 05:44 Glucose 136 mg/dL (74-106) H 08/07/22 05:44 Phosphorus 4.0 mg/dL (2.5-4.9) 08/06/22 17:45 Magnesium 1.8 mg/dL (1.6-2.4) 08/06/22 17:45 Total Bilirubin 0.4 mg/dL (0.2-1.0) 08/06/22 11:16 AST 22 U/L (15-37) 08/06/22 11:16 ALT 20 U/L (16-61) 08/06/22 11:16 Alkaline Phosphatase 103 U/L (45-117) 08/06/22 11:16 Triglycerides 90 mg/dL (<150) 08/07/22 05:44 Cholesterol 140 mg/dL (<200) 08/07/22 05:44 HDL Cholesterol 48 mg/dL (40-60) 08/07/22 05:44 Cholesterol/HDL Ratio 2.92 08/07/22 05:44 Lipase 102 U/L (13-75) H 08/06/22 11:16 Home Medications: Acetaminophen [Tylenol] 640 mg PO Q6HP PRN 08/06/22 Amiodarone HCl [Cordarone*] 200 mg PO BID 08/06/22 Aspirin Chewable [Aspirin Chewable*] 81 mg PO DAILY 08/06/22 Atorvastatin Calcium 40 mg PO BEDTIME 08/06/22 Clopidogrel Bisulfate [Plavix*] 75 mg PO DAILY 08/06/22 Furosemide [Lasix*] 40 mg PO DAILY 08/06/22 Midodrine HCl 10 mg PO TID 08/06/22 Sulfamethoxazole/Trimethoprim [Bactrim 400-80 mg Tablet] 1 each PO BID 10 Days #20 tab 08/07/22 New Medications: Sulfamethoxazole/Trimethoprim [Bactrim 400-80 mg Tablet] 1 each PO BID 10 Days #20 tab Physician Discharge Instructions: Please follow-up with urology, your PCP, nephrologyDr. Tomas within 1 week. Take Bactrim as prescribed for your urinary tract infection. Diet: Renal Activity: Ad elton Followup: Chepe Marin DO [ACTIVE - CAN ADMIT] - 1 Week NONE,NONE [Primary Care Provider] - 1 Week Marcello Rodriguez [ACTIVE - CAN ADMIT] - 1 Week Time spent managing pt's care (in minutes): 35
[2022-08-07] MEDS ORDERED: DOCUSATE NA 100 MG CAP PO SCH (21:00)
[2022-08-08] MEDS ORDERED: MULTIVITAMINS,THERAPEUT 1 TAB PO SCH (09:00)
== END 2022-08-07 19:45 | disposition home or self-care (01) ==
LOC: ER 10:01 → ERHOLD 15:33 → 2ND 16:16
PROVIDERS: ADMIT Internal Medicine; ATTEND Internal Medicine
DX: I95.9 Hypotension, unspecified (principal); R55 Syncope and collapse; I50.43 Acute on chronic combined systolic (congestive) and diastolic (congestive) heart failure; I25.10 Atherosclerotic heart disease of native coronary artery without angina pectoris; N18.6 End stage renal disease; E78.5 Hyperlipidemia, unspecified; N39.0 Urinary tract infection, site not specified; R05.9 Cough, unspecified; R80.9 Proteinuria, unspecified; D63.1 Anemia in chronic kidney disease; N40.1 Benign prostatic hyperplasia with lower urinary tract symptoms; R33.8 Other retention of urine; T50.995A Adverse effect of other drugs, medicaments and biological substances, initial encounter; Y92.9 Unspecified place or not applicable; J90 Pleural effusion, not elsewhere classified; J98.11 Atelectasis; Z95.1 Presence of aortocoronary bypass graft; Z87.891 Personal history of nicotine dependence; Z82.49 Family history of ischemic heart disease and other diseases of the circulatory system; Z99.2 Dependence on renal dialysis; Z20.822 Contact with and (suspected) exposure to COVID-19
CPT/HCPCS: 0240U; 36415; 70450; 71045; 80048; 80061; 80076; 81001; 81003; 83605; 83690; 83735; 83880; 84100; 84439; 84443; 84484; 85025; 85610; 87040; 87086; 87088; 90935; 93005; 93880; 96361; 96365; 96375; 99285; G0378; J1644; J2930; J7614; J7644; Q5106

== ENCOUNTER 2022-12-13 13:32 | Emergency (ER) | payer OTHER ==
--- OUTSIDE RECORDS SUMMARY | 2022-12-13 13:46 | XMS REPORT | Continuity of Care Document ---
:1940 Author Organization [facility] t Address [address] [place] [address] Care Team Providers Name Role Phone TONY QUEEN Primary Care Physician Unavailable JACQUE SHERIDAN Attending Clinician Unavailable ELIZABETH FULLER Attending Clinician Unavailable ELIZABETH FULLER Attending Clinician Unavailable MIRZA NASSAR Attending Clinician Unavailable Doctor Unassigned, [place] Attending Clinician Unavailable Jacque Sheridan MD Attending Clinician Kavitha Marley CRNA Attending Clinician Adilson Roth MD Attending Clinician ADILSON ROTH Attending Clinician Unavailable CHRETIEN_F Attending Clinician Unavailable Srinath Kaur Attending Clinician Unavailable Santana-Mbayo_A_AH Attending Clinician Unavailable MIRZA NASSAR Admitting Clinician Unavailable CHRETIEN_F Admitting Clinician Unavailable Jesus Larson Admitting Clinician Unavailable Santana-Mbayo_A_AH Admitting Clinician Unavailable Payers Payer Name Policy Type Policy Number Effective Date Expiration Date S kane [employer] [place] [id number] 2022 CLASSIC NO PREMIUM 00:00:00 [place] [employer] [place] [id number] (MEDICARE REPLACEMENT/ADVANT AGE - HMO) [employer] [place] - [id number] 2019 [place] 00:[place]:00 (MEDICARE REPLACEMENT/ADVANT AGE - HMO) Problems Condition Condition Condition Status Onset Resolution Last Treating Co mments Source Name Details Category Date Date Treatment Clinician Date Coronary Coronary Disease Active Unive rs artery artery 09-01 ity of disease disease 00:00: [place] involving involving 00 Medi pill[facility] coronary coronary artery of artery of [facility] heart without without angina angina pectoris pectoris Atrial Atrial Disease Active Univers fibrillati fibrillati 09-01 it y of on, on, 00:00: [place] unspecifie unspecifie 00 Me dical d type d type Branch 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 09-01 ity of failure failure 00:00: [place] with with 00 Medical preserved preserved Bran ch ejection ejection fraction fraction Hyperlipid Hyperlipid Disease Active U nivers emia, emia, 09-01 ity of unspecifie unspec[place]ie [place] 00 Medical hyperlipid hyperlipid Br anch emia type emia type Primary Primary Disease Active Univers hypertensi hypertensi 09-01 it y of on on 00:00: [place] 00 Medical Branch 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 09-01 ity of renal renal 00:00: [place] disease) disease) 00 Medica l Branch Allergies, Adverse Reactions, Alerts Allergy Allergy Status Severity Reaction(s) Onset Inactive Treating Comm ents Source Name Type Date Date Clinician No Known DA Active U [facility] Allergie 1-25 Clear s 00:00: [place] 00 [facility] NO KNOWN Drug Active Univers ALLERGIE Class ity of S [facility] Social History Social Habit Start Date Stop Date Quantity Comments Source History of Cigarette Smoker Universi ty of tobacco use [facility] Exposure to 2022-10-19 2022-10-29 Not sure University SARS-CoV-2 00:00:00 09:28:00 [facility] (event) [place] Tobacco use and 2022-09-01 2022-09-01 Smokeless tobacco Un iversity of exposure 00:00:00 00:00:00 non-user [facility] Sex Ass[birth year] At [birth year] Universit y of 00:00:00 00:00:00 [facility] Smoking Status Start Date Stop Date Source Ex-smoker 2022-09-01 00:00:00 2022-09-01 00:00:00 [facility] Medications Ordered Filled Start Stop Current Ordering Indication Dosage Frequency Signature Comments Components Source Medication Medication Date Date Medication? Clinician (SIG) Name Name gatoodrine 2022- No 10mg Take 1 Unive rs 10 mg 6-27 06-27 tablet by ity of tablet 15:58: 00:00 mouth in [place] 48 :00 the Medical morning Branch and 1 tablet at noon and 1 tablet in the evening. midodrine 0 Yes [id number] 15mg Take 1.5 Univers 10 mg 6-27 tablets by ity of tablet 00:00: mouth in [place] 00 the Medical morning Branch and 1.5 tablets at noon and 1.5 tablets in the evening. midodrine 2022-0 Yes [id number] 15mg Take 1.5 Univers 10 mg 6-27 tablets by ity of tablet 00:00: mouth in [place] 00 the Medical morning Branch and 1.5 tablets at noon and 1.5 tablets in the evening. acetaminoph 0 Yes Take by Uni vers en 325 mg 5-18 mouth ity of tablet 13:44: every 6 [place] 00 (six) Medical hours as Branch needed. atorvastati 0 Yes 40mg Take 1 Univ ers n 40 mg 5-18 tablet by ity of tablet 13:44: mouth [place] 00 every Medical evening. Branch clopidogreL 0 Yes 75mg Take 1 Univ ers 75 mg 5-18 tablet by ity of tablet 13:44: mouth in [place] 00 the Medical morning. Branch midodrine 2022-0 Yes 10mg Take 1 Univer s 10 mg 5-18 tablet by ity of tablet 13:44: mouth in [place] 00 the Medical morning Branch and 1 tablet at noon and 1 tablet in the evening. cyanocobala 0 Yes Take by Uni vers min, 5-18 mouth. ity of vitamin 13:44: [place] B-12, 00 Medical (VITAMIN Branch B12 ORAL) acetaminoph 2022-0 Yes Take by Uni vers en 325 mg 5-18 mouth ity of tablet 13:44: every 6 [place] 00 (six) Medical hours as Branch needed. atorvastati 2022-0 Yes 40mg Take 1 Univ ers n 40 mg 5-18 tablet by ity of tablet 13:44: mouth [place] 00 every Medical evening. Branch clopidogreL 2023-0 Yes 75mg Take 1 Univ ers 75 mg 5-18 tablet by ity of tablet 13:44: mouth in [place] 00 the Medical morning. Branch midodrine 2023-0 Yes 10mg Take 1 Univer s 10 mg 5-18 tablet by ity of tablet 13:44: mouth in [place] 00 the Medical morning Branch and 1 tablet at noon and 1 tablet in the evening. cyanocobala 2023-0 Yes Take by Uni vers min, 5-18 mouth. ity of vitamin 13:44: [place] B-12, 00 Medical (VITAMIN Branch B12 ORAL) acetaminoph 2023-0 Yes Take by Uni vers en 325 mg 5-18 mouth ity of tablet 13:44: every 6 [place] 00 (six) Medical hours as Branch needed. atorvastati 2023-0 Yes 40mg Take 1 Univ ers n 40 mg 5-18 tablet by ity of tablet 13:44: mouth [place] 00 every Medical evening. Branch clopidogreL 2023-0 Yes 75mg Take 1 Univ ers 75 mg 5-18 tablet by ity of tablet 13:44: mouth in [place] 00 the Medical morning. Branch midodrine 2023-0 Yes 10mg Take 1 Univer s 10 mg 5-18 tablet by ity of tablet 13:44: mouth in [place] 00 the Medical morning Branch and 1 tablet at noon and 1 tablet in the evening. cyanocobala 2023-0 Yes Take by Uni vers min, 5-18 mouth. ity of vitamin 13:44: [place] B-12, 00 Medical (VITAMIN Branch B12 ORAL) acetaminoph 2023-0 Yes Take by Uni vers en 325 mg 5-18 mouth ity of tablet 13:44: every 6 [place] 00 (six) Medical hours as Branch needed. atorvastati 2023-0 Yes 40mg Take 1 Univ ers n 40 mg 5-18 tablet by ity of tablet 13:44: mouth [place] 00 every Medical evening. Branch clopidogreL 2023-0 Yes 75mg Take 1 Univ ers 75 mg 5-18 tablet by ity of tablet 13:44: mouth in [place] 00 the Medical morning. Branch midodrine 2023-0 Yes 10mg Take 1 Univer s 10 mg 5-18 tablet by ity of tablet 13:44: mouth in [place] 00 the Medical morning Branch and 1 tablet at noon and 1 tablet in the evening. cyanocobala 2023-0 Yes Take by Uni vers min, 5-18 mouth. ity of vitamin 13:44: [place] B-12, 00 Medical (VITAMIN Branch B12 ORAL) acetaminoph 2023-0 Yes Take by Uni vers en 325 mg 5-18 mouth ity of tablet 13:44: every 6 [place] 00 (six) Medical hours as Branch needed. atorvastati 2023-0 Yes 40mg Take 1 Univ ers n 40 mg 5-18 tablet by ity of tablet 13:44: mouth [place] 00 every Medical evening. Branch clopidogreL 2023-0 Yes 75mg Take 1 Univ ers 75 mg 5-18 tablet by ity of tablet 13:44: mouth in [place] 00 the Medical morning. Branch midodrine 2023-0 Yes 10mg Take 1 Univer s 10 mg 5-18 tablet by ity of tablet 13:44: mouth in [place] 00 the Medical morning Branch and 1 tablet at noon and 1 tablet in the evening. cyanocobala 2023-0 Yes Take by Uni vers min, 5-18 mouth. ity of vitamin 13:44: [place] B-12, Medical (VITAMIN Branch B12 ORAL) acetaminoph 2023-0 Yes Take by Uni vers en 325 mg 5-18 mouth ity of tablet 13:44: every 6 [place] 00 (six) Medical hours as Branch needed. atorvastati 2023-0 Yes 40mg Take 1 Univ ers n 40 mg 5-18 tablet by ity of tablet 13:44: mouth [place] 00 every Medical evening. Branch clopidogreL 2023-0 Yes 75mg Take 1 Univ ers 75 mg 5-18 tablet by ity of tablet 13:44: mouth in [place] 00 the Medical morning. Branch cyanocobala 2023-0 Yes Take by Uni vers min, 5-18 mouth. ity of vitamin 13:44: [place] B-12, 00 Medical (VITAMIN Branch B12 ORAL) acetaminoph 2023-0 Yes Take by Uni vers en 325 mg 5-18 mouth ity of tablet 13:44: every 6 [place] 00 (six) Medical hours as Branch needed. atorvastati 2023-0 Yes 40mg Take 1 Univ ers n 40 mg 5-18 tablet by ity of tablet 13:44: mouth [place] 00 every Medical evening. Branch clopidogreL 2023-0 Yes 75mg Take 1 Univ ers 75 mg 5-18 tablet by ity of tablet 13:44: mouth in [place] 00 the Medical morning. Branch cyanocobala 2022-0 Yes Take by Uni vers min, 5-18 mouth. ity of vitamin 13:44: [place] B-12, 00 Medical (VITAMIN Branch B12 ORAL) lactated 3-0 Yes 1000mL at 100 Unive rs ringers IV 5-04 mL/hr, ity of infusion 14:30: 1,000 [place], [place] 1,000 [place] 00 IV Medical Infusion, Branch CONTINUOUS , Starting on Yvette 10/09/22 at 0930, Until Discontinu ed, Routine, PACU lactated 3-0 202- No 1000mL at 100 Univ ers ringers IV 5-04 05-04 mL/hr, ity of infusion 14:30: 17:43 1,000 mL, [place] 1,000 mL 00 :01 IV Medical Infusion, Branch CONTINUOUS , Starting on [place] 10/09/22 at 0930, Until [place] 10/09/22 at 1243, Routine, PACU traMADoL 2022-0 Yes 50mg 50 mg, Univers (ULTRAM) 5-04 Oral, PRN, ity o f tablet 50 14:29: 1 dose, [place] mg 46 Starting Medical on [place] Branch 10/09/22 at 0929, Until Discontinu ed, Routine, Pain (scale 4-6), DSU Recovery acetaminoph 2022-0 Yes 650mg 650 mg, Un keysha en 5-04 Oral, PRN, ity of (TYLENOL) 14:29: 1 dose, [place] tablet 650 46 Starting Medic al mg on [place] Branch 10/09/22 at 0929, Until Discontinu ed, Routine, Pain (scale 1-3), DSU Recovery traMADoL 2022-0 2022- No 50mg 50 mg, Univer s (ULTRAM) 5-04 05-04 Oral, PRN, ity of tablet 50 14:29: 17:43 1 dose, [place] mg 46 :01 Starting Medical on [place] Branch 10/09/22 at 0929, Until [place] 10/09/22 at 1243, Routine, Pain (scale 4-6), DSU Recovery acetaminoph 2022-0 2022- No 650mg 650 mg, U nivers en - 05-04 Oral, PRN, ity of (TYLENOL) 14:29: 17:43 1 dose, [place] tablet 650 46 :01 Starting Medic al mg on [place] Branch 10/09/22 at 0929, Until [place] 10/09/22 at 1243, Routine, Pain (scale 1-3), DSU Recovery HYDROmorphO 2022-0 Yes .2mg 0.2 mg, Uni vers ne 5-04 Slow IV ity of (DILAUDID) 14:27: Push, [place] injection 27 Q5MIN PRN, Medi pillo 0.2 mg 10 doses, Branch Starting on [place] 10/09/22 at 0927, Until Discontinu ed, Routine, Pain (scale 7-10), PACU
Us e approved by (Faculty): PACU USE -ANESTHESI A SERVICE-HY DROMORPHON E INJECTIONS FENTanyl PF 2022-0 Yes 25ug 25 mcg, Uni vers (SUBLIMAZE 10-09 Slow IV ity of (PF)) 14:27: Push, [place] injection 27 Q5MIN PRN, Medi pillo 25 mcg 4 doses, Branch Starting on [place] 10/09/22 at 0927, Until Discontinu ed, Routine, Pain (scale 4-6), PACU ondansetron 2022-0 Yes 4mg 4 mg, Slow Univers (ZOFRAN 04 IV Push, ity of (PF)) 14:27: PRN, 1 [place] injection 4 27 dose, Medical mg Starting Branch on [place] 10/09/22 at 0927, Until Discontinu ed, Routine, Nausea and Vomiting (N/V), PACU HYDROmorphO 2022-0 2022- No .2mg 0.2 mg, Un keysha ne - 05-04 Slow IV ity of (DILAUDID) 14:27: 17:43 Push, [place] injection 27 :01 Q5MIN PRN, Medi pillo 0.2 mg 10 doses, Branch Starting on [place] 10/09/22 at 0927, Until [place] 10/09/22 at 1243, Routine, Pain (scale 7-10), PACU
Us e approved by (Faculty): PACU USE -ANESTHESI A SERVICE-HY DROMORPHON E INJECTIONS FENTanyl PF 2022- No 25ug 25 mcg, Un keysha (SUBLIMAZE 10-09 Slow IV ity o f (PF)) 14:27: 17:43 Push, [place] injection 27 :01 Q5MIN PRN, Medi pillo 25 mcg 4 doses, Branch Starting on [place] 10/09/22 at 0927, Until [place] 10/09/22 at 1243, Routine, Pain (scale 4-6), PACU ondansetron 2022- No 4mg 4 mg, Slow Univers (ZOFRAN 10-09 IV Push, ity of (PF)) 14:27: 17:43 PRN, 1 [place] injection 4 27 :01 dose, Medical mg Starting Branch on [place] 10/09/22 at 0927, Until [place] 10/09/22 at 1243, Routine, Nausea and Vomiting (N/V), PACU bupivacaine Yes PRN, Univer s (preserv 10-09 Starting ity of free) 14:10: on [place] (SENSORCAIN 00 10/09/22 at Med ical E MPF) 0.25 0910, Branch % (2.5 Until mg/mL) Discontinu injection ed, Routine, Intra-op bupivacaine 2022- No PRN, Unive rs (preserv 10-09 Starting ity of free) 14:10: 17:43 on Yvette [place] (SENSORCAIN 00 :01 10/09/22 at Med ical E MPF) 0.25 0910, Branch % (2.5 Until [place] mg/mL) 10/09/22 at injection 1243, Routine, Intra-op NaCl 0.9% 2022- No CONTINUOUS U nivers (NS) IV 10-09 PRN, ity of infusion 12:52: 14:25 [place] :01 on [place] [facility] 10/09/22 at Branch 0752, Until [place] 10/09/22 at 0925, Routine, Intra-op heparin 2022- No CONTINUOUS Uni vers 25,000 10-09 PRN, ity of Units/250 12:52: 14:25 Starting [place] mL 00 :01 on [facility] (Premixed 5/4/23 at [facility] h Bag) in 0752, 0.45 % NS Until [place] 10/09/22 at 0925, Routine, Intra-op acetaminoph 2023-0 Yes Take by Uni vers en 325 mg 5-04 mouth ity of tablet 10:43: every 6 [place] (six) Medical hours as Branch needed. atorvastati 2023-0 Yes 40mg Take 1 Univ ers n 40 mg 5-04 tablet by ity of tablet 10:43: mouth every Medical evening. Branch clopidogreL 2023-0 Yes 75mg Take 1 Univ ers 75 mg 5-04 tablet by ity of tablet 10:43: mouth in [place] the Medical morning. Branch midodrine 2023-0 Yes 10mg Take 1 Univer s 10 mg 5-04 tablet by ity of tablet 10:43: mouth in [place] the Medical morning Branch and 1 tablet at noon and 1 tablet in the evening. tamsulosin 2023-0 Yes Take by Univ ers 0.4 mg 24 5-04 mouth ity of hr capsule 10:43: every [place] evening. Medical Branch cyanocobala 3-0 Yes Take by Uni vers min, 5-04 mouth. ity of vitamin 10:43: [place] -12, Medical (VITAMIN Branch B12 ORAL) acetaminoph 2022-0 Yes Take by Uni vers en 325 mg 5-04 mouth ity of tablet 10:43: every 6 [place] (six) Medical hours as Branch needed. atorvastati 3-0 Yes 40mg Take 1 Univ ers n 40 mg 5-04 tablet by ity of tablet 10:43: mouth [place] every Medical evening. Branch clopidogreL 2023-0 Yes 75mg Take 1 Univ ers 75 mg 5-04 tablet by ity of tablet 10:43: mouth in [place] the Medical morning. Branch midodrine 2023-0 Yes 10mg Take 1 Univer s 10 mg 5-04 tablet by ity of tablet 10:43: mouth in [place] the Medical morning Branch and 1 tablet at noon and 1 tablet in the evening. tamsulosin 2023-0 Yes Take by Univ ers 0.4 mg 24 5-04 mouth ity of hr capsule 10:43: every [place] 01 evening. Medical Branch cyanocobala 2023-0 Yes Take by Uni vers min, 5-04 mouth. ity of vitamin 10:43: [facility] Medical (VITAMIN Branch B12 ORAL) FUROSEMIDE 2022-0 3- No 20mg Take 20 mg Univers ORAL 10-02- by mouth ity of 09:41: 00:00 in the [place] 19 :00 morning. Medical Branch FUROSEMIDE 2022-0 3- No 20mg Take 20 mg Univers ORAL 10-02- by mouth ity of 09:41: 00:00 in the [place] 19 :00 morning. Medical Branch NaCl 0.9% 2022-0 Yes 1000mL at 42 Unive rs (NS) IV 4-21 mL/hr, IV ity of infusion 11:30: Infusion, [place] 1,000 mL 00 CONTINUOUS Medic al , Starting Branch on Thu09/26/22 at 0630, Until Discontinu ed, Routine, DSU Pre-op acetaminoph 3-0 Yes Take by Uni vers en 325 mg 4-21 mouth ity of tablet 06:41: every 6 [place] [address] (six) Medical hours as Branch needed. atorvastati 3-0 Yes 40mg Take 1 Univ ers n 40 mg 4-21 tablet by ity of tablet 06:41: mouth [place] [address] every Medical evening. Branch clopidogreL 2022-0 Yes 75mg Take 1 Univ ers 75 mg 4-21 tablet by ity of tablet 06:41: mouth in [place] [address] the Medical morning. Branch FUROSEMIDE 2022-0 Yes Take by Univ ers ORAL 4-21 mouth ity of 06:41: daily. [place] [address] Medical Branch midodrine 3-0 Yes 10mg Take 1 Univer s 10 mg 4-21 tablet by ity of tablet 06:41: mouth in [place] [address] the Medical morning Branch and 1 tablet at noon and 1 tablet in the evening. tamsulosin 3-0 Yes Take by Univ ers 0.4 mg 24 4-21 mouth ity of hr capsule 06:41: every [place] [address] evening. Medical Branch cyanocobala 2022-0 Yes Take by Uni vers min, 4-21 mouth. ity of vitamin 06:41: [facility] Medical (VITAMIN Branch B12 ORAL) acetaminoph 3-0 Yes Take by Uni vers en 325 mg 4-21 mouth ity of tablet 06:41: every 6 [place] [address] (six) Medical hours as Branch needed. atorvastati 2023-0 Yes 40mg Take 1 Univ ers n 40 mg 4-21 tablet by ity of tablet 06:41: mouth [place] [address] every Medical evening. Branch clopidogreL 2023-0 Yes 75mg Take 1 Univ ers 75 mg 4-21 tablet by ity of tablet 06:41: mouth in [place] [address] the Medical morning. Branch FUROSEMIDE 2023-0 Yes Take by Univ ers ORAL 4-21 mouth ity of 06:41: daily. [place] [address] Medical Branch midodrine 2023-0 Yes 10mg Take 1 Univer s 10 mg 4-21 tablet by ity of tablet 06:41: mouth in [place] [address] the Medical morning Branch and 1 tablet at noon and 1 tablet in the evening. tamsulosin 2023-0 Yes Take by Uni vers 0.4 mg 24 4-21 mouth ity of hr capsule 06:41: every [place] [address] evening. Medical Branch cyanocobala 3-0 Yes Take by Uni vers min, 4-21 mouth. ity of vitamin 06:41: [place] [address] Medical (VITAMIN Branch B12 ORAL) acetaminoph 2023-0 Yes Take by Uni vers en 325 mg 4-21 mouth ity of tablet 06:41: every 6 [place] [address] (six) Medical hours as Branch needed. atorvastati 2023-0 Yes 40mg Take 1 Univ ers n 40 mg 4-21 tablet by ity of tablet 06:41: mouth [place] [address] every Medical evening. Branch clopidogreL 2023-0 Yes 75mg Take 1 Univ ers 75 mg 4-21 tablet by ity of tablet 06:41: mouth in [place] [address] the Medical morning. Branch FUROSEMIDE 2023-0 Yes Take by Univ ers ORAL 4-21 mouth ity of 06:41: daily. [place] [address] Medical Branch midodrine 2023-0 Yes 10mg Take 1 Univer s 10 mg 4-21 tablet by ity of tablet 06:41: mouth in [place] [address] the Medical morning Branch and 1 tablet at noon and 1 tablet in the evening. tamsulosin 2023-0 Yes Take by Univ ers 0.4 mg 24 4-21 mouth ity of hr capsule 06:41: every [place] [address] evening. Medical Branch cyanocobala 3-0 Yes Take by Uni vers min, 4-21 mouth. ity of vitamin 06:41: [place] B-12, 51 Medical (VITAMIN Branch B12 ORAL) furosemide 3-0 Yes 40mg Take 1 Unive rs 40 mg 4-19 tablet by ity of tablet 00:00: mouth in [place] 00 the Medical morning. Branch furosemide 2023-0 Yes 40mg Take 1 Unive rs 40 mg 4-19 tablet by ity of tablet 00:00: mouth in [place] 00 the Medical morning. Branch furosemide 2023-0 2023- No 40mg Take 1 Univ ers 40 mg 4-19 05-24 tablet by ity of tablet 00:00: 00:00 mouth in [place] 00 :00 the Medical morning. Branch furosemide 2023-0 2023- No 40mg Take 1 Univ ers 40 mg 4-19 05-24 tablet by ity of tablet 00:00: 00:00 mouth in [place] 00 :00 the Medical morning. Branch furosemide 2023-0 2023- No 40mg Take 1 Univ ers 40 mg 4-19 05-24 tablet by ity of tablet 00:00: 00:00 mouth in [place] 00 :00 the Medical morning. Branch acetaminoph 3-0 Yes Take by Uni vers en 325 mg 4-14 mouth ity of tablet 13:37: every 6 [place] [address] (six) Medical hours as Branch needed. atorvastati 3-0 Yes 40mg Take 1 Univ ers n 40 mg 4-14 tablet by ity of tablet 13:37: mouth [place] [address] every Medical evening. Branch clopidogreL 3-0 Yes 75mg Take 1 Univ ers 75 mg 4-14 tablet by ity of tablet 13:37: mouth in [place] [address] the Medical morning. Branch FUROSEMIDE 3-0 Yes Take by Univ ers ORAL 4-14 mouth ity of 13:37: daily. [place] [address] Medical Branch midodrine 3-0 Yes 10mg Take 1 Univer s 10 mg 4-14 tablet by ity of tablet 13:37: mouth in [place] [address] the Medical morning Branch and 1 tablet at noon and 1 tablet in the evening. tamsulosin 3-0 Yes Take by Univ ers 0.4 mg 24 4-14 mouth ity of hr capsule 13:37: every [place] [address] evening. Medical Branch cyanocobala 3-0 Yes Take by Uni vers min, 4-14 mouth. ity of vitamin 13:37: [facility]-12, 48 Medical (VITAMIN Branch B12 ORAL) amiodarone 3-0 2023- No 200mg Take 1 Uni vers 200 mg 3-27 - tablet by ity of tablet 10:11: 00:00 mouth in [place] 10 :00 the Medical morning Branch and 1 tablet in the evening. amiodarone 2023-0 2022- No 200mg Take 1 Uni vers 200 mg 3-27 - tablet by ity of tablet 10:11: 00:00 mouth in [place] 10 :00 the Medical morning Branch and 1 tablet in the evening. amiodarone 3-0 2022- No 200mg Take 1 Uni vers 200 mg 3-27 - tablet by ity of tablet 10:11: 00:00 mouth in [place] 10 :00 the Medical morning Branch and 1 tablet in the evening. amiodarone 2022-0 2022- No 200mg Take 1 Uni vers 200 mg 3-27 - tablet by ity of tablet 10:11: 00:00 mouth in [place] 10 :00 the Medical morning Branch and 1 tablet in the evening. acetaminoph 2022-0 Yes Take by Un keysha en 325 mg 3-27 mouth ity of tablet 09:51: every 6 [place] [address] (six) Medical hours as Branch needed. atorvastati 2022-0 Yes 40mg Take 1 Univ ers n 40 mg 3-27 tablet by ity of tablet 09:51: mouth [place] [address] every Medical evening. Branch clopidogreL 2022-0 Yes 75mg Take 1 Univ ers 75 mg 3-27 tablet by ity of tablet 09:51: mouth in [place] [address] the Medical morning. Branch FUROSEMIDE 2022-0 Yes Take by Univ ers ORAL 3-27 mouth ity of 09:51: daily. [place] [address] Medical Branch midodrine 3-0 Yes 10mg Take 1 Univer s 10 mg 3-27 tablet by ity of tablet 09:51: mouth in [place] [address] the Medical morning Branch and 1 tablet at noon and 1 tablet in the evening. tamsulosin 2022-0 Yes Take by Univ ers 0.4 mg 24 3-27 mouth ity of hr capsule 09:51: every [place] [address] evening. Medical Branch cyanocobala 3-0 Yes Take by Uni vers min, 3-27 mouth. ity of vitamin 09:51: [place] B-12, 16 Medical (VITAMIN Branch B12 ORAL) acetaminoph 2023-0 Yes Take by Uni vers en 325 mg 3-27 mouth ity of tablet 09:51: every 6 [place] [address] (six) Medical hours as Branch needed. atorvastati 2023-0 Yes 40mg Take 1 Univ ers n 40 mg 3-27 tablet by ity of tablet 09:51: mouth [place] [address] every Medical evening. Branch clopidogreL 2023-0 Yes 75mg Take 1 Univ ers 75 mg 3-27 tablet by ity of tablet 09:51: mouth in [place] [address] the Medical morning. Branch FUROSEMIDE 2023-0 Yes Take by Univ ers ORAL 3-27 mouth ity of 09:51: daily. [place] [address] Medical Branch midodrine 3-0 Yes 10mg Take 1 Univer s 10 mg 3-27 tablet by ity of tablet 09:51: mouth in [place] [address] the Medical morning Branch and 1 tablet at noon and 1 tablet in the evening. tamsulosin 3-0 Yes Take by Univ ers 0.4 mg 24 3-27 mouth ity of hr capsule 09:51: every [place] [address] evening. Medical Branch cyanocobala 3-0 Yes Take by Uni vers min, 3-27 mouth. ity of vitamin 09:51: [place] B-12, 16 Medical (VITAMIN Branch B12 ORAL) acetaminoph 3-0 Yes Take by Uni vers en 325 mg 3-27 mouth ity of tablet 09:51: every 6 [place] [address] (six) Medical hours as Branch needed. atorvastati 3-0 Yes 40mg Take 1 Univ ers n 40 mg 3-27 tablet by ity of tablet 09:51: mouth [place] [address] every Medical evening. Branch clopidogreL 2023-0 Yes 75mg Take 1 Univ ers 75 mg 3-27 tablet by ity of tablet 09:51: mouth in [place] [address] the Medical morning. Branch FUROSEMIDE 2023-0 Yes Take by Univ ers ORAL 3-27 mouth ity of 09:51: daily. [place] [address] Medical Branch midodrine 3-0 Yes 10mg Take 1 Univer s 10 mg 3-27 tablet by ity of tablet 09:51: mouth in [place] [address] the Medical morning Branch and 1 tablet at noon and 1 tablet in the evening. tamsulosin 2023-0 Yes Take by Univ ers 0.4 mg 24 3-27 mouth ity of hr capsule 09:51: every [place] [address] evening. Medical Branch cyanocobala 2023-0 Yes Take by Uni vers min, 3-27 mouth. ity of vitamin 09:51: [facility] 16 Medical (VITAMIN Branch B12 ORAL) acetaminoph 2022-0 Yes Take by Uni vers en 325 mg 3-27 mouth ity of tablet 09:51: every 6 [place] [address] (six) Medical hours as Branch needed. atorvastati 3-0 Yes 40mg Take 1 Univ ers n 40 mg 3-27 tablet by ity of tablet 09:51: mouth [place] [address] every Medical evening. Branch clopidogreL 3-0 Yes 75mg Take 1 Univ ers 75 mg 3-27 tablet by ity of tablet 09:51: mouth in [place] [address] the Medical morning. Branch FUROSEMIDE 3-0 Yes Take by Univ ers ORAL 3-27 mouth ity of 09:51: daily. [place] [address] Medical Branch midodrine 3-0 Yes 10mg Take 1 Univer s 10 mg 3-27 tablet by ity of tablet 09:51: mouth in [place] [address] the Medical morning Branch and 1 tablet at noon and 1 tablet in the evening. tamsulosin 2022-0 Yes Take by Univ ers 0.4 mg 24 3-27 mouth ity of hr capsule 09:51: every [place] [address] evening. Medical Branch cyanocobala 2022-0 Yes Take by Uni vers min, 3-27 mouth. ity of vitamin 09:51: [facility] 16 Medical (VITAMIN Branch B12 ORAL) amiodarone 2022-0 Yes [id number] 200mg Take 1 Univers 200 mg 3-27 tablet by ity of tablet 00:00: mouth in [place] [address] the Medical morning. Branch amiodarone 3-0 Yes [id number] 200mg Take 1 Univers 200 mg 3-27 tablet by ity of tablet 00:00: mouth in [place] [address] the Medical morning. Branch amiodarone 2023-0 Yes [id number] 200mg Take 1 Univers 200 mg 3-27 tablet by ity of tablet 00:00: mouth in [place] [address] the Medical morning. Branch amiodarone 2023-0 Yes [id number] 200mg Take 1 Univers 200 mg 3-27 tablet by ity of tablet 00:00: mouth in [place] [address] the Medical morning. Branch amiodarone 2023-0 Yes [id number] 200mg Take 1 Univers 200 mg 3-27 tablet by ity of tablet 00:00: mouth in [place] the Medical morning. Branch amiodarone 2023-0 Yes [id number] 200mg Take 1 Univers 200 mg 3-27 tablet by ity of tablet 00:00: mouth in [place] the Medical morning. Branch amiodarone 2023-0 Yes [id number] 200mg Take 1 Univers 200 mg 3-27 tablet by ity of tablet 00:00: mouth in [place] the Medical morning. Branch amiodarone 2023-0 Yes [id number] 200mg Take 1 Univers 200 mg 3-27 tablet by ity of tablet 00:00: mouth in [place] the Medical morning. Branch amiodarone 2023-0 Yes [id number] 200mg Take 1 Univers 200 mg 3-27 tablet by ity of tablet 00:00: mouth in [place] the Medical morning. Branch amiodarone 2023-0 Yes [id number] 200mg Take 1 Univers 200 mg 3-27 tablet by ity of tablet 00:00: mouth in [place] the Medical morning. Branch amiodarone 2023-0 Yes [id number] 200mg Take 1 Univers 200 mg 3-27 tablet by ity of tablet 00:00: mouth in [place] the Medical morning. Branch amiodarone 2023-0 Yes [id number] 200mg Take 1 Univers 200 mg 3-27 tablet by ity of tablet 00:00: mouth in [place] the Medical morning. Branch amiodarone 2023-0 Yes [id number] 200mg Take 1 Univers 200 mg 3-27 tablet by ity of tablet 00:00: mouth in [place] the Medical morning. Branch amiodarone 2023-0 Yes [id number] 200mg Take 1 Univers 200 mg 3-27 tablet by ity of tablet 00:00: mouth in [place] the Medical morning. Branch amiodarone 2023-0 Yes [id number] 200mg Take 1 Univers 200 mg 3-27 tablet by ity of tablet 00:00: mouth in [place] the Medical morning. Branch amiodarone 2023-0 Yes [id number] 200mg Take 1 Univers 200 mg 3-27 tablet by ity of tablet 00:00: mouth in [place] the Medical morning. Branch amiodarone 2023-0 Yes [id number] 200mg Take 1 Univers 200 mg 3-27 tablet by ity of tablet 00:00: mouth in [place] 00 the Medical morning. Branch Vital Signs Vital Name Observation Time Observation Value Comments Source Systolic blood 2022-10-29 14:46:00 128 mm[Hg] Univer sity of pressure [place] [facility] Diastolic blood 2022-10-29 14:46:00 61 mm[Hg] Unive rsity of pressure [facility] Heart rate 2022-10-29 14:46:00 71 /min Universi ty of [place] [facility] Body height 2022-10-29 14:46:00 177.8 cm Universi ty of [place] [facility] Body weight 2022-10-29 14:46:00 82.419 kg Universi ty of [place] [facility] BMI 2022-10-29 14:46:00 26.07 kg/m2 Universi ty of [facility] Branch Oxygen saturation in 2022-10-29 14:46:00 97 /min University of Arterial blood by [place] [employer] pillo Pulse oximetry Branch Systolic blood 2022-10-09 14:57:00 102 mm[Hg] Univer sity of [facility] Branch Diastolic blood 2022-10-09 14:57:00 56 mm[Hg] Unive rsity of [facility] Branch Respiratory rate 2022-10-09 14:57:00 14 /min Univ ersity of [facility] Branch Oxygen saturation in 2022-10-09 14:57:00 95 /min University of Arterial blood by [place] [employer] pillo Pulse oximetry Branch Heart rate 2022-10-09 14:31:00 75 /min Universi ty of [place] [facility] Body temperature 2022-10-09 14:27:00 36.61 Riddhi Univ ersity of [facility] Branch Body height 2022-10-02 14:00:00 177.8 cm Universi ty of [place] [facility] Body weight 2022-10-02 14:00:00 81.647 kg Universi ty of [place] [facility] BMI 2022-10-02 14:00:00 25.83 kg/m2 Universi ty of [place] [facility] Respiratory rate 2022-10-09 14:53:00 14 /min Univ ersity of [place] [facility] Oxygen saturation in 2022-10-09 14:53:00 96 /min University of Arterial blood by [place] [employer] pillo Pulse oximetry Branch Systolic blood 2022-10-09 14:51:00 100 mm[Hg] Univer sity of [facility] Medical Branch Diastolic blood 2022-10-09 14:51:00 57 mm[Hg] Unive rsity of pressure [facility] Heart rate 2022-10-09 14:31:00 75 /min Universi ty of [facility] Body temperature 2022-10-09 14:27:00 36.61 Riddhi Univ ersity of [facility] Body height 2022-10-02 14:00:00 177.8 cm Universi ty of [facility] Body weight 2022-10-02 14:00:00 81.647 kg Universi ty of [place] [facility] BMI 2022-10-02 14:00:00 25.83 kg/m2 Universi ty of [facility] Systolic blood 2022-09-26 11:30:00 132 mm[Hg] Univer sity of pressure [facility] Branch Diastolic blood 2022-09-26 11:30:00 70 mm[Hg] Unive rsity of pressure [facility] Heart rate 2022-09-26 11:30:00 75 /min Universi ty of [facility] Body temperature 2022-09-26 11:30:00 36.17 Riddhi Univ ersity of [facility] Branch Respiratory rate 2022-09-26 11:30:00 15 /min [facility] ersity of [facility] Oxygen saturation in 2022-09-26 11:30:00 95 /min [facility] Arterial blood by [facility] Pulse oximetry Branch Body height 2022-09-19 18:30:00 177.8 cm Universi ty of [facility] Body weight 2022-09-19 18:30:00 81.647 kg Universi ty of [place] [facility] [place] BMI 2022-09-19 18:30:00 25.83 kg/m2 Universi ty of [facility] Branch Systolic blood 2022-09-01 14:54:00 125 mm[Hg] Univer sity of pressure [facility] Branch Diastolic blood 2022-09-01 14:54:00 67 mm[Hg] Unive rsity of pressure [facility] Branch Heart rate 2022-09-01 14:54:00 70 /min Universi ty of [facility] Body temperature 2022-09-01 14:54:00 36.5 Riddhi Univ ersity of [facility] Respiratory rate 2022-09-01 14:54:00 17 /min Univ ersity of [place] [facility] Body weight 2022-09-01 14:54:00 80.74 kg [facility] Oxygen saturation in 2022-09-01 14:54:00 100 /min University of Arterial blood by [facility] Pulse oximetry Branch Systolic blood 2022-09-26 11:30:00 132 mm[Hg] [facility] Diastolic blood 2022-09-26 11:30:00 70 mm[Hg] [facility] 2022-09-26 11:30:00 75 /min [facility] Body temperature 2022-09-26 11:30:00 36.17 Riddhi [facility] Respiratory rate 2022-09-26 11:30:00 15 /min [facility] Oxygen saturation in 2022-09-26 11:30:00 95 /min [facility] Arterial blood by [facility] Pulse oximetry Branch Body height 2022-09-19 18:30:00 177.8 cm [facility] Body weight 2022-09-19 18:30:00 81.647 kg [facility] BMI 2022-09-19 18:30:00 25.83 kg/m2 [facility] Procedures Procedure Date / Time Performing Clinician Source Performed REFERRAL- REQUEST/RESPONSE 2022-12-10 05:01:00 Doctor Charlene , [facility] Name Medical [place] ARTERIOVENOUS FISTULA 2022-10-09 12:07:00 Mirza Nassar [facility] NOTICE OF PRIVACY 2022-09-22 13:22:13 Doctor Charlene, [facility] PRACTICES [place] [facility] CONSENT/REFUSAL FOR 2022-09-22 13:21:53 Doctor Charlene [facility] DIAGNOSIS AND TREATMENT [place] [facility] [place] ASSIGNMENT OF BENEFITS 2022-09-22 13:21:30 Doctor Chang [facility] [place] [facility] HB ECG ROUTINE & RHYTHM 2022-09-01 14:59:19 Jacque Sheridan [facility] [place] HB ECG ROUTINE & RHYTHM 2022-09-01 14:59:19 Jacque Sheridan [facility] [place] NOTICE OF BILLING 2022-09-01 14:38:44 Doctor Charlene, [facility] PRACTICES FOR MEDICARE [place] [facility] ranch PATIENTS NO SHOW OR MISSED 2022-09-01 14:38:24 Doctor Charlene [facility] APPOINTMENT POLICY [place] [facility] h ACKNOWLEDGEMENT CONSENT/REFUSAL FOR 2022-09-01 14:38:06 Doctor Charlene [facility] DIAGNOSIS AND TREATMENT [place] [facility] ASSIGNMENT OF BENEFITS 2022-09-01 14:37:46 Doctor Charlene, [facility] [place] [facility] PATIENT FINANCIAL 2022-09-01 14:37:24 Doctor Charlene, [facility] POLICY [place] [facility] AUTHORIZATION TO RELEASE 2022-09-01 05:01:00 Doctor Chang [facility] PHI TO [facility] [place] [facility] REFERRAL- REQUEST/RESPONSE 2022-08-25 05:01:00 Doctor Chang [facility] [place] [facility] REFERRAL- REQUEST/RESPONSE 2022-08-23 05:01:00 Doctor Charlene [facility] [place] [facility] [id number] 2022-07-28 00:00:00 ALTMU [facility] [id number] 2022-07-26 00:00:00 ALTMU [facility] [id number] 2022-07-25 00:00:00 ALTMU [facility] [id number] 2022-07-23 00:00:00 ALTMU [facility] [id number] 2022-07-21 00:00:00 ALTMU [facility] [id number] 2022-07-18 00:00:00 ALTMU [facility] [id number] 2022-07-16 00:00:00 ALTMU [facility] [id number] 2022-07-15 00:00:00 CHAAB.01 [facility] [id number] 2022-07-15 00:00:00 CHAAB.01 [facility] [id number] 2022-07-15 00:00:00 CHAAB.01 [facility] [id number] 2022-07-15 00:00:00 ALTMU [facility] [id number] 2022-07-14 00:00:00 KYRPO [facility] [id number] 2022-07-12 00:00:00 ALTMU [facility] [id number] 2022-07-08 00:00:00 CHAAB.01 [facility] [id number] 2022-07-08 00:00:00 CHAAB.01 [facility] [id number] 2022-07-08 00:00:00 CHAAB.01 [facility] [id number] 2022-07-08 00:00:00 CHAAB.01 [facility] [id number] 2022-07-08 00:00:00 CHAAB.01 [facility] [id number] 2022-07-08 00:00:00 CHAAB.01 [facility] [id number] 2022-07-08 00:00:00 CHAAB.01 [facility] [id number] 2022-07-08 00:00:00 CHAAB.01 [facility] [id number] 2022-07-08 00:00:00 CHAAB.01 [facility] [id number] 2022-07-08 00:00:00 CHAAB.01 [facility] [id number] 2022-07-07 00:00:00 ALTMU [facility] [id number] 2022-07-06 00:00:00 ALTMU [facility] [id number] 2022-07-05 00:00:00 ALTMU [facility] [id number] 2022-07-04 00:00:00 ALTMU [facility] [id number] 2022-07-03 00:00:00 ALTMU [facility] [id number] 2022-07-02 00:00:00 RAMED [facility] Encounters Start End Encounter Admission Attending Care Care Encounter Source Date/Time Date/Time Type Type Clinicians Facility Department ID 2023-01-28 2023-01-28 [facility] [id number] Univers 11:20:00 11:20:00 JACQUE ity o f [facility] 2022-12-25 2022-12-25 Outpatient [facility] [id number] Univers 14:45:00 14:45:00 MIRZA ity [facility] 2022-12-11 2022-12-11 Outpatient [facility] [id number] Univers 14:30:00 14:30:00 MIRZA [facility] 2022-12-10 2022-12-10 Orders Doctor KAVITHA 1.2.840.114 [id number] Univers 00:00:00 00:00:00 Only Unassigned, SACHI 350.1.13.10 [facility] 4.2.7.2.686 [place] [id number] [address] 2022-12-02 2022-12-02 Telephone [facility] 1.2.781.193 [id number] Univers 00:00:00 00:00:00 Jacque [place] 350.1.13.10 ity of [facility] [place].2.[place] [id number] Hi dic[address] 2022-11-21 2022-11-21 Telephone [facility] 1.2.711.963 [id number] Univers 00:00:00 00:00:00 Rajivjun [place] 350.1.13.10 ity of [place].7.2.[place] [id number] Hi dicny NAL [address] [place] [address] 2022-11-21 2022-11-21 Telephone [facility] 1.2.020.360 [id number] Univers 00:00:00 00:00:00 Qiaacejun [place] 350.1.13.10 ity of [place] 4.2.7.2.[place] [id number] Hi dical NAL [address] [place] [address] 2022-11-19 2022-11-19 Outpatient [facility] [id number] Univers 07:50:18 08:09:00 JACQUE jones o f [facility] 2022-10-29 2022-10-29 Office [facility] 1.2.840.114 [id number] Univers 10:00:00 10:00:00 Visit Jacque SHOEMAKER 350.1.13.10 ity of [facility] 4[place] [id number] Hi dical [facility] 059 [facility] 2022-10-29 2022-10-29 Outpatient [facility] [id number] Univers 10:00:00 09:59:12 JACQUE jones o f [facility] 2022-10-23 2022-10-23 Outpatient [facility] [id number] Univers 16:45:00 13:54:08 MIRZA esequiel [facility] 2022-10-09 2022-10-09 [facility] [id number] Univers 06:24:00 10:11:00 MIRZA [facility] 2022-10-09 2022-10-09 [facility] 1.2.840.114 [id number] Univers 06:24:00 10:11:00 Encounter Mirza SH[place]EMAK[place] 350.1.13.10 ity of [facility] 4.2.[place]2.[place] SUR[place]ICAL [id number] [facility] [address] [place] 2022-10-09 2022-10-09 Surgery [facility] 1.2.840.114 [id number] Univers 07:10:00 09:53:00 Mirza SOHEMAKER 350.1.13.10 i ty of [facility] 4.2.7.2.[place] [id number] [facility] [address] [place] 2022-09-26 2022-09-26 Anesthesia Kavitha Marley 1.2.840.1 [id number] Univers 06:43:01 06:43:01 Event 90033.1.1 ity of 3.104.2.7 [place] .3.534846 Medica l .8 [place] 2022-09-26 2022-09-26 [facility] [id number] Univers 06:25:00 06:41:00 MIRZA ity of [facility] 2022-09-26 2022-09-26 Hospital [facility], 1.2.840.0 [id number] Univers 06:25:00 06:41:00 Encounter Mirza 32671.1.1 it y of 3.104.2.7 [place] .3.547483 Medica l .8 Branch 2022-09-26 2022-09-26 Telephone [facility], 1.2.840.3 [id number] Univers 00:00:00 00:00:00 Mirza 00177.1.1 ity of 3.104.2.7 [place] .3.432799 Medica l .8 Branch 2022-09-19 2022-09-19 Travel 1.2.840.1 1.2.068.686 [id number] Univers 00:00:00 00:00:00 09392.1.1 350.1.13.10 ity of 3.104.2.7 4[place]7.3.698 [place] .3.334113 084.8 Medica l .8 [place] 2022-09-15 2022-09-15 Hospital [facility], 1.2.840.8 [id number] Univers 00:00:00 00:00:00 Encounter Adilson A 60716.1.1 ity of 3.104.2.7 [place] .3.772838 Medica l .8 [place] 2022-09-15 2022-09-15 Outpatient R GONZALEZ [facility] [id number] Univers 00:00:00 00:00:00 DE ANDA ity o f [facility] 2022-09-15 2022-09-15 Telephone [facility], 1.2.840.0 [id number] Univers 00:00:00 00:00:00 Adilson A 34083.1.1 i ty of 3.104.2.7 [place] .3.701902 Medica l .8 Branch 2022-09-15 2022-09-15 Letter [facility], 1.2.840.0 [id number] Univers 00:00:00 00:00:00 (Out) Adilson Farrell 46727.1.1 i ty of 3.104.2.7 [place] .3.446941 Medica l .8 [place] 2022-09-04 2022-09-04 Office Maday, 1.2.840.7 [id number] Univers 14:30:00 14:35:39 Visit Mirza 38414.1.1 ity of 3.104.2.7 [place] .3.364810 Medica l .8 [place] 2022-09-04 2022-09-04 Outpatient [facility] [id number] Univers 14:30:00 14:35:39 MIRZA ity of [facility] 2022-09-04 2022-09-04 Travel 1.2.840.1 1.2.666.239 [id number] Univers 00:00:00 00:00:00 54254.1.1 350.1.13.10 ity of 3.104.2.7 4[place].3.698 [place] .3.085541 084.8 Medica l .8 [place] 2022-09-01 2022-09-01 Office Arvin, 1.2.840.3 [id number] Univers 10:00:00 10:18:19 Visit Jacque 12935.1.1 ity of 3.104.2.7 [place] .3.449828 Medica l .8 [place] 2022-09-01 2022-09-01 Outpatient [facility] [id number] Univers 10:00:00 10:18:19 JACQUE ity o f [facility] 2022-09-01 2022-09-01 Travel 1.2.840.1 1.2.704.208 [id number] Univers 00:00:00 00:00:00 83128.1.1 350.1.13.10 ity of 3.104.2.7 4[place].7.3.698 [place] .3.807626 084.8 Medica l .8 [place] 2022-09-01 2022-09-01 Orders Doctor 1.2.840.0 [id number] Univers 00:00:00 00:00:00 Only Unassigned, 63187.1.1 ity of [place] 3.104.2.7 [place] .3.547330 Medica l .8 Branch 2022-08-23 2022-08-23 Orders Doctor 1.2.840.1 [id number] Univers 00:00:00 00:00:00 Only Unassigned, 86051.1.1 ity of [place] 3.104.2.7 [place] .3.754091 Medica l .8 Branch 2022-07-29 2022-07-29 Outpatient CHRETIEN_F [facility] [address] [place] 00:00:00 00:00:00 0221 [facility] i [facility] 2022-07-29 2022-07-29 [facility] [address] [place] 00:00:00 00:00:00 0302 Commun i ty [facility] 2022-07-02 2022-07-28 Inpatient UR Vincent, Srinath [facility] [id number] [facility] 18:38:00 17:36:00 47 [facility] 2019-07-27 2019-07-27 Outpatient Jonh [facility] [id number] [facility] 07:29:00 07:29:00 _A_AH 74513 Family Practic e Results Test Description Test [...] code = CA) 8.6 mg/dL 8.0-10.5 N [id number] 07:59:00 Test Item Value Reference Range Interpretation Comments MAGNESIUM (test code = MAG) 1.91 mg/dL 1.80-2.40 N CBC W/AUTO [id number] 06:58:00 Test Item Value Reference Range Interpretation [...] (test code NO = MDIFF) BASIC METABOLIC [id number] 08:27:00 Test Item Value Reference Range Interpretation [...] the recommended for lucretia for GFRby the [facility] Kidney Foundati on for Adults.The GFR will not calculate if th e sex is unknown or if thepatient's ag e is <18 years. CREATININE (test 3.4 mg/dL 0.6-1.3 H code = CREAT) CALCIUM (test code = 8.8 mg/dL 8.0-10.5 N CA) CBC W/AUTO [id number] 08:23:00 Test Item Value Reference Range Interpretation [...] DIFF REQUIRED (test code NO = MDIFF) [id number] 08:14:00 Test Item Value Reference Range Interpretation Comments MAGNESIUM (test code = MAG) 2.00 mg/dL 1.80-2.40 N - XR CHEST 1 [id number] 00:00:00 [facility] 1940 Sex: M FAX: [place] [phone] [place]: St: ADM FAX: Lina Rivera [phone] FAX: Jesus Rebolledo MD [phone] Name: SHERRI ARCE [facility] : 1940 Age/S: 81/M [address] [place] [address] Unit #: [id number] Loc: G.3354 [place] [address] Phys: Lina Schwarz MD Acct: [id number] Dis Date: Status: ADM IN PHONE #: [phone] Exam Date: 07/27/2022 0703 FAX #: [phone] Reason: R/O PLEURALEFFUSION EXAMS: CPT CODE: [id number] XR CHEST 1 V 59735 PROCEDURE INFORMATION: Exam: XR Chest Exam date and time: 07/27/2022 7:03 AM Age: 81 years old Clinical indication: Pain; Other: R/O pleural effusion TECHNIQUE: Imaging protocol: Radiologic exam of the chest. Views: 1 view. COMPARISON: CR XR [id number] 07/26/2022 6:43 AM FINDINGS: Lungs: There are bibasilar opacities. A right IJ dialysis catheter rem ains in place. Pleural spaces: Small bilateral pleural effusions. There is left apical pleural thickening. No pneumothorax. Heart/Mediastinum: Heart size is within normal limits. Previous midline sternotomy. Bones/joints: Unremarkable. IMPRESSION: Bibasilar opacities with small bilateral pleural effusions. at 0821 Reported and signed by: Herb Strong M.D. CC: [place] Crawford DO; Lina Schwarz MD; Jesus Larson MD Technologist: Isidro Jarquin; RT Dorcas(R) Trnscrd Date/Time/By: 07/27/2022 (0821) : By:[email or web address] Orig Print D/T: S: 07/27/2022 (0901) PAGE 1 Signed ReportUR CREATININE CLEARANCE 24HR [...] GM/24HR 1.0-1.6 L 24HR (test code = MVRC67T) UR VOLUME (test 2049 mL code = VOL) UR COLLECTION 1440 MIN TIME (test code = COLTM) UR UREA NITROGEN [id number] 11:10:00 Test Item Value Reference Range Interpretation Comments UR UREA NITROGEN 178 mg/dL Not Estab. Performed A t: HD RANDOM (test code = [facility] [id number] UUN) [place], [place] [id number] Anderson MD Ph:[phone] eviously reported result : 178 mg/dLEdited by: FARRAH on 07/26/22: 1110: UR UREA N IT RAN previously repo rted as: 178 mg/dL Perfo rmed At: HD [facility] [address] [place], [place] [id number] Jaclyn Anderson MD Ph:[phone] UR UREA NITROGEN 24HR 4 g/24 hr 4-16 Perfor med At: HD (test code = UUN24T) [facility] [id number] [place], [place] [id number] terrance Anderson MD Ph:[phone] [id number] 04:43:00 Test Item Value Reference Range Interpretation Comments MAGNESIUM (test code = MAG) 1.76 mg/dL 1.80-2.40 L BASIC METABOLIC [id number] 04:41:00 Test Item Value Reference Range Interpretation [...] the recommended for lucretia for GFRby the [facility] Kidney Foundati on for Adults.The GFR will not calculate if th e sex is unknown or if thepatient's ag e is <18 years. CREATININE (test 3.5 mg/dL 0.6-1.3 H code = CREAT) CALCIUM (test code = 8.3 mg/dL 8.0-10.5 N CA) CBC W/AUTO [id number] 04:19:00 Test Item Value Reference Range Interpretation [...] NO = MDIFF) - XR CHEST 1 [id number] 00:00:00 [facility]: 1940 Sex: M FAX: [place] [phone] [place]: St: [facility] FAX: Lina Rivera [phone] FAX: Srinath Smith MD [phone] Name: SHERRI ARCE [facility] : 1940 Age/S: 81/M [address] [place] [address] Blvd Unit #: [id number] Loc: G.3354 [place] [address] Phys: Lina Schwarz MD Acct: [id number] Dis Date: Status: ADM IN PHONE #: [phone] Exam Date: 07/26/2022 0645 FAX #: [phone] Reason: R/O PLEURAL EFFUSION EXAMS: CPT CODE: [id number] XR CHEST 1 V 87834 PROCEDURE INFORMATION: Exam: XR Chest Exam date [...] bilaterally. Pleural spaces: See "Lungs" finding. Heart/Mediastinum: See"Bones/joints" finding. Bones/joints: Patient is status post median sternotomy. Enlarged cardiac silhouette and mediastinal structures are stable including aortic calcification. IMPRESSION: Bibasilar consolidation and left perihilar opacity with bilateral pleural effusions similar to prior study. at 1450 Reported and signed by: Chaim Alonzo M.D. CC: Los Crawford DO; Lina Schwarz MD; Srinath Kaur MD Technologist: Isidro Jarquin; Elaina Reeves RT(R) Trnscrd Date/Time/By: 07/26/2022 (740) : By: [email or web address] Orig Print D/T: S: 07/26/2022 (516) PAGE 1 Signed [id number] 08:32:00 Test Item Value Reference Range Interpretation Comments MAGNESIUM (test code = MAG) 1.87 mg/dL 1.80-2.40 N CBC W/AUTO [id number] 07:46:00 Test Item Value Reference Range Interpretation [...] (test code NO = MDIFF) BASIC METABOLIC [id number] 07:38:00 Test Item Value Reference Range Interpretation [...] 8.7 mg/dL 8.0-10.5 N CA) BASIC METABOLIC [id number] 08:00:00 Test Item Value Reference Range Interpretation [...] code = 8.4 mg/dL 8.0-10.5 N CA) [id number] 07:59:00 Test Item Value Reference Range Interpretation Comments MAGNESIUM (test code = MAG) 1.87 mg/dL 1.80-2.40 N CBC W/AUTO [id number] 06:08:00 Test Item Value Reference Range Interpretation [...] (test code NO = MDIFF) BASIC METABOLIC [id number] 08:15:00 Test Item Value Reference Range Interpretation [...] code = 8.5 mg/dL 8.0-10.5 N CA) [id number] 08:10:00 Test Item Value Reference Range Interpretation Comments MAGNESIUM (test code = MAG) 2.00 mg/dL 1.80-2.40 N CBC W/AUTO [id number] 07:45:00 Test Item Value Reference Range Interpretation [...] DIFF REQUIRED (test code NO = MDIFF) [id number] 04:27:00 Test Item Value Reference Range Interpretation Comments MAGNESIUM (test code = MAG) 2.00 mg/dL 1.80-2.40 N BASIC METABOLIC [id number] 04:05:00 Test Item Value Reference Range Interpretation [...] 8.1 mg/dL 8.0-10.5 N CA) CBC W/AUTO [id number] 03:57:00 Test Item Value Reference Range Interpretation [...] DIFF REQUIRED (test NO code = MDIFF) [id number] 08:08:00 Test Item Value Reference Range Interpretation Comments MAGNESIUM (test code = MAG) 1.93 mg/dL 1.80-2.40 N BASIC METABOLIC [id number] 08:08:00 Test Item Value Reference Range Interpretation [...] Creatinine, pat ient age and sex. GFR v aluesless than 60 mL/min/ 1.73 square meters a [...] 8.2 mg/dL 8.0-10.5 N CA) CBC W/AUTO [id number] 07:09:00 Test Item Value Reference Range Interpretation [...] (test NO code = MDIFF) BASIC METABOLIC [id number] 07:52:00 Test Item Value Reference Range Interpretation [...] the recommended for lucretia for GFRby the [facility] Kidney Foundati on for Adults.The GFR will not calculate if th e sex is unknown or if thepatient's ag e is <18 years. CREATININE (test 4.0 mg/dL 0.6-1.3 H code = CREAT) CALCIUM (test code = 8.4 mg/dL 8.0-10.5 N CA) [id number] 07:49:00 Test Item Value Reference Range Interpretation Comments MAGNESIUM (test code = MAG) 2.05 mg/dL 1.80-2.40 N CBC W/AUTO [id number] 07:31:00 Test Item Value Reference Range Interpretation [...] (test NO code = MDIFF) CBC W/AUTO [id number] 07:59:00 Test Item Value Reference Range Interpretation [...] (test code NO = MDIFF) BASIC METABOLIC [id number] 07:40:00 Test Item Value Reference Range Interpretation [...] the recommended for lucretia for GFRby the [facility] Kid[facility] Foundati on for Adults.The GFR will not calculate if th e sex is unknown or if thepatient's ag e is <18 years. CREATININE (test 3.2 mg/dL 0.6-1.3 H code = CREAT) CALCIUM (test code = 8.0 mg/dL 8.0-10.5 N CA) [id number] 07:36:00 Test Item Value Reference Range Interpretation Comments MAGNESIUM (test code = MAG) 2.12 mg/dL 1.80-2.40 N - XR CHEST 1 [id number] 00:00:00 [facility] 1940 Sex: M FAX: Los Maldonado [phone] [place]: St: ADM FAX: Gianna Carmona [phone] FAX: Srinath Smith MD [phone] Name: SHERRI ARCE [facility] : 1940 Age/S: 81/M [address] [place] [address] Unit #: [id number] Loc: G.3354 [place] [address] Phys: Gianna Hoover Acct: [id number] Dis Date: Status: ADM IN PHONE #: [phone] Exam Date: 07/19/2022753 FAX #: [phone] Reason: Post CV Surgery EXAMS: CPT CODE: [id number] XR CHEST 1 V 93189 PROCEDURE INFORMATION: Exam: XR Chest Exam date and time: 07/19/2022 6:33 AM Age: 81 years old Clinical indication: Other: Post cv surgery TECHNIQUE: Imagingprotocol: Radiologic exam of the chest. Views: 1 view. COMPARISON: CR XR CHEST 1V 07/18/2022 5:14 AM FINDINGS: Tubes, catheters and devices: Stable position of right central catheter. Lungs: Bibasilar c onsolidation has some improved aeration bilaterally. Small bilateral [...] and about both acromioclavicular joints. IMPRESSION: Bibasilar consolidationhas some improved aeration bilaterally. Small bilateral pleural effusions. Mild atelectasis about the left perihilar region. No other focal infiltrates within the lungs. Left apical pleural thickening similar to prior study. at 1126 Reported and signed by: Chaim Alonzo M.D. CC: Los Crawford DO; Gianna Burks; Srinath Kaur MD Technologist: Isidro Jarquin; RT Dorcas(R) Trnscrd Date/Time/By: 07/19/2022 (1126) : By: [email or web address] Orig Print D/T: S: 07/19/2022 (112) PAGE 1 Signed ReportGLUCOSE [id number] 13:48:00 Test Item Value Reference Range Interpretation Comments GLUCOSE BEDSIDE (test 85 MG/DL 70-110 N Perfor med by certified code = GLUBED) trouble operator at [facility] [id number] 08:44:00 Test Item Value Reference Range Interpretation Comments MAGNESIUM (test code = MAG) 1.97 mg/dL 1.80-2.40 N BASIC METABOLIC [id number] 08:39:00 Test Item Value Reference Range Interpretation [...] 8.7 mg/dL 8.0-10.5 N CA) CBC W/AUTO [id number] 08:12:00 Test Item Value Reference Range Interpretation [...] NO = MDIFF) - XR CHEST 1 [id number] [facility]:00:00 [facility] 1940 Sex: M FAX: Radha Ward MD [phone] [place]: St: ADM FAX: Los Crawford [phone] FAX: Sarbjit Sherman [phone] FAX: Gianna Carmona [phone] Name: SHERRI ARCE [facility] : 1940 Age/S: 81/M [address] [place] [address] Unit #: [id number] Loc: G.3354 [place] [address] Phys: Gianna Hoover Acct: [id number] Dis Date: Status: ADM IN PHONE #: [phone] Exam Date: 07/18/202259 FAX #: [phone] Reason: Post CV Surgery EXAMS: CPT CODE: [id number] XR CHEST 1 V 97528 PROCEDURE INFORMATION:Exam: XR Chest Exam date and time: 07/18/2022 5:14 AM Age: 81 years old Clinical indication: Other: Post cv surgery TECHNIQUE: Imaging protocol: Radiologic exam of the chest. Views: 1 view. COMPARISON: CR XR CHEST 1V 07/17/2022 5:12 AM FINDINGS: Tubes, catheters and devices: Right internal jugular hemodialysis catheter tip at the level of central SVC. Faintly opaque EKG leads and epicardial pacer leads overlie the chest. Lungs: Ill-defined opacities in the [...] DO; Sarbjit Mcarthur MD; Gianna LIZARRAGA Technologist: RT Adrian(R) Trnscrd Date/Time/By: 07/18/2022 (0755) : By: StevenKWL Orig Print D/T: S: 07/18/2022 (075) PAGE 1 Signed [id number] 04:11:00 Test Item Value Reference Range Interpretation Comments MAGNESIUM (test code = MAG) 2.00 mg/dL 1.80-2.40 N BASIC METABOLIC [id number] 03:54:00 Test Item Value Reference Range Interpretation [...] the recommended for lucretia for GFRby the [facility] Kidney Foundati on for Adults.The GFR will not calculate if th e sex is unknown or if thepatient's ag e is <18 years. CREATININE (test 3.5 mg/dL 0.6-1.3 H code = CREAT) CALCIUM (test code = 8.2 mg/dL 8.0-10.5 N CA) CBC W/AUTO [id number] 03:36:00 Test Item Value Reference Range Interpretation [...] code NO = MDIFF) - DUP VEIN [id number] 00:00:00 [facility] : 1940 Sex: M Name: SHERRI ARCE [facility] : 1940 Age/S: 81 / M [address] [place] [address] Unit #: [id number] Loc: [facility] CHERYL [address] Phys: Jana Mittal MD Acct: [id number] Dis Date: Status: ADM IN PHONE #: [phone] Exam Date: 07/17/2022 1517 FAX #: [phone] Reason: POST OP DVT PROPHYLAXIS EXAMS: CPT CODE: [id number] [facility] VEIN WOJCIECH 41145 PROCEDURE INFORMATION: Exam: US Duplex Lower Extremity Veins, Bi lateral Exam date and time: 07/17/2022 2:25 PM Age: 81 years old Clinical indication: Screening exam; Post op dvt prophylaxis TECHNIQUE: Imaging protocol: Real-time duplex ultrasound of the bilateral extremities with 2-D crocker scale, color Doppler flow and spectral waveform analysis including responses to compression and other maneuvers (when performed) with image documentation. Complete exam focused onthe lower extremity veins. COMPARISON: US DUP VEIN WOJCIECH 07/03/2022 11:32 AM FINDINGS: Right deep veins: Unremarkable. The common femoral, femoral, proximal profunda femoral and popliteal veins are patentwithout thrombus. Normal Doppler waveforms. Normal compressibility and/or augmentation response. Right superficial veins: Superficial thrombus in the right greater saphenous vein. Left deep veins: Unremarkable. The common femoral, femoral, proximal profunda femoral and popliteal veins are patent without thrombus. Normal Doppler waveforms. Normal compressibility and/or augmentation response. Left superficial veins: Saphenofemoral junction is patent without thrombus. Soft tissues: Complex hypoechoicarea in the right inguinal region without internal vascular flow or peripheral hyperemia measuring 4.2 x 1.4 x 2.3 cm which may represent a hematoma. IMPRESSION: No evidence of deep vein thrombosis. Superficial thrombus in the right greater saphenous vein. Complex hypoechoic area in the right inguinalregion without internal vascular flow or peripheral hyperemia measuring 4.2 x 1.4 x 2.3 cm which mayrepresent a hematoma. at 1545 Reported and signed by: Delmer Palma M.D. CC: Radha Ward MD; Los Crawford DO; Jana Mittal MD; Sarbjit Mcarthur MD Technologist: Alyson Coleman RDMS(AB) Trnscb Date/Time: 07/17/2022 (1544) [email or web address] Orig Print D/T: S: 07/17/2022 (1219) Probe: PAGE 1 Signed Report- XR CHEST 1 [id number] 00:00:00 [facility] : 1940 Sex: M FAX: Radha Ward MD [phone] [place]: St: ADM FAX: Los Crawford [phone] FAX: Willi August MD [phone] FAX: Sarbjit Sherman [phone] Name: SHERRI ARCE [facility] Pedro David : 1940 Age/S: 81/M [address] [place] [address] Unit #: [id number] Loc: [address] [address] Phys: Willi August MD Acct: [id number] Dis Date: Status: ADM IN PHONE #: [phone] Exam Date: 07/17/2022 0554 FAX #: [phone] Reason: S/P CABG X 5 EXAMS: CPT CODE: [id number] XR CHEST 1 V 96904 PROCEDURE INFORMATION: Exam: XR Chest Exam date [...] August MD; Sarbjit Mcarthur MD Technologist: RT Britta(R) Trnscrd Date/Time/By: 07/17/2022 (0756) : By: StevenKWL Orig Print D/T: S: 07/17/2022 (0757) PAGE 1Signed [id number] 04:39:00 Test Item Value Reference Range Interpretation Comments MAGNESIUM (test code = MAG) 2.10 mg/dL 1.80-2.40 N BASIC METABOLIC [id number] 03:57:00 Test Item Value Reference Range Interpretation [...] 8.4 mg/dL 8.0-10.5 N CA) CBC W/AUTO [id number] 03:37:00 Test Item Value Reference Range Interpretation [...] NO = MDIFF) - XR CHEST 1 [id number] 00:00:00 [facility] : 1940 Sex: M FAX: Radha Ward MD [phone] [place]: St: FAX: Los Crawford [phone] FAX: Jana Mittal MD FAX: Sarbjit Sherman [phone] Name: SHERRI ARCE [facility] : 1940 Age/S: 81/M [address] [place] [address] Unit #: [id number] Loc: [address] [place] [address] Phys: Jana Mittal MD Acct: [id number] Dis Date: Status: ADM IN PHONE #: [phone] Exam Date: 07/16/2022 1055 FAX #: [phone] Reason: REASSESS PNEUMOTHORAX EXAMS: CPT CODE: [id number] XR CHEST 1 V 45321 PROCEDURE INFORMATION: Exam: XR Chest Exam date [...] sternotomy wires. IMPRESSION: 1. Small left and stable small right layering pleural effusion. 2. Left chest tube present. No pneumothorax. 3. Stable bibasilar airspace opacities at 1158 Reported and signed by: Som Enriquez M.D. CC: Radha Ward MD; Los Crawford DO; Jana Mittal MD; Sarbjit Mcarthur MD Technologist: RT Jeff(R) Trnscrd Date/Time/By: 07/16/2022 (1158) : By: [email or web address] Orig Print D/T: S: 07/16/2022 (1834) PAGE 1 Signed Report- XR CHEST 1 [id number] 00:00:00 [facility] : 1940 Sex: M FAX: Radha Ward MD [phone] [place]: St: ADM FAX: Los Crawford [phone] FAX: Fidel August [phone] FAX: Sarbjit Sherman [phone] Name: YAZMINSHERRI [facility] : 1940 Age/S: 81/M [address] [place] [address] Bl Unit #: [id number] Loc: G.[address] [place] [address] Phys: Willi August MD Acct: [id number] Dis Date: Status: ADM IN PHONE #: [phone] Exam Date: 07/16/2022 0500 FAX #: [phone] Reason: SP CABG EXAMS: CPT CODE: [id number] XR CHEST 1 V 48056 PROCEDURE INFORMATION: Exam: XR Chest Exam date [...] near the apex. Stable right-sided dialysis catheter. Lungs: The other lung opacities are stable. [...] Willi August MD; Sarbjit Mcarthur MD Technologist: Ines Marley RT(R) Trnscrd Date/Time/By: 07/16/2022 (0710) : By: [email or web address] Orig Print D/T: S: 07/16/2022 (0710) PAGE 1 Signed [id number] 18:16:00 Test Item Value Reference Range Interpretation Comments MAGNESIUM (test code = MAG) 2.39 mg/dL 1.80-2.40 N BASIC METABOLIC [id number] 17:44:00 Test Item Value Reference Range Interpretation [...] 8.5 mg/dL 8.0-10.5 N CA) BASIC METABOLIC [id number] 04:55:00 Test Item Value Reference Range Interpretation [...] code = 8.1 mg/dL 8.0-10.5 N CA) [id number] 04:30:00 Test Item Value Reference Range Interpretation Comments MAGNESIUM (test code = MAG) 2.36 mg/dL 1.80-2.40 N CBC W/AUTO [id number] 04:16:00 Test Item Value Reference Range Interpretation [...] code = MDIFF) - XR CHEST 1 [id number] 00:00:00 [facility] : 1940 Sex: M FAX: Radha Ward MD [phone] [place]: St: [facility] FAX: Los Crawford [phone] FAX: Jana Mittal MD FAX: Sarbjit Sherman [phone] Name: YAZMINSHERRI [facility] : 1940 Age/S: 81/M [address] [place] [address] Unit #: [id number] Loc: [address] [place], [place] [address] Phys: Jana Mittal MD Acct: [id number] Date: Status: ADM IN PHONE #: [phone] Exam Date: 07/15/2022 1710 FAX #: [phone] Reason: TUNNELED DIALYSIS CATHETER PLACEMENT EXAMS: CPT CODE: [id number] XR CHEST 1 V 32633 PROCEDURE INFORMATION: Exam: XR Chest Exam date [...] Mittal MD; Sarbjit Mcarthur MD Technologist: RT Mary(Taniya) Trnscrd Date/Time/By: 07/15/2022 (1840) : By: Kourtney Orig Print D/T: S: 07/15/2022 (1840) PAGE 1 Signed Report- XR CHEST 1 [id number] [facility]00[facility] : 1940 Sex: M FAX: Radha Ward MD [phone] [place]: St: [facility] FAX: Los Crawford [phone] FAX: Edwardo Flannery MD [phone] FAX: Sarbjit Sherman [phone] Name: SHERRI ARCE [facility] : 1940 Age/S: 81/M [address] [place] [address] Unit #: [id number] Loc: G.[address] [place] [address] Phys: Edwardo Flannery MD Acct: [id number] Dis Date: Status: ADM IN PHONE #: [phone] Exam Date: 07/15/2022 0655 FAX #: [phone]: FOLLOW UP EXAMS: CPT CODE: [id number] XR CHEST 1 V 33721 PROCEDURE INFORMATION: Exam: XR Chest Exam date and time: 07/15/2022 6:26 AM Age: 81 years old Clinical indication: Other: Follow up TECHNIQ UE: Imaging protocol: Radiologic exam of the chest. Views: 1 view. COMPARISON: CR XR CHEST 1V 07/14/2022 2:07 PM FINDINGS: Tubes, catheters and devices: Left apical chest tube, unchanged position. Stableleft basilar chest tube Lungs: Bibasilar airspace opacities, mildly worsened. Pleural spaces: Bilateral small pleural effusions. No pneumothorax. Heart/Mediastinum: Stable cardiomegaly. Uncoiled and calcified aortic arch. Bones/joints: Median intact sternotomy wires. Stable. IMPRESSION: Left apical and basilar chest tubes. No pneumothorax. Small bilateral pleural effusions. Bibasilar airspace opacities, mildly worsened. at 0727 Reported and signed by: Sree Schmidt M.D. CC: Radha Ward MD; [place] Crawford DO; Edwardo Flannery MD; Sarbjit Mcarthur MD Technologist: Iban Jacob RT(R) Trnscrd Date/Time/By: 07/15/2022 (726) : By: [email or web address] Orig Print D/T: S: 07/15/2022 (726) PAGE 1 Signed ReportBASIC METABOLIC PANEL 2022-07-14 20:44:00 Test Item Value Reference Range Interpretation [...] 8.2 mg/dL 8.0-10.5 N CA) BASIC METABOLIC [id number] 11:22:00 Test Item Value Reference Range Interpretation [...] 8.4 mg/dL 8.0-10.5 N CA) BASIC METABOLIC [id number] 04:19:00 Test Item Value Reference Range Interpretation [...] the recommended for lucretia for GFRby the [facility] Kidney Foundati on for Adults.The GFR will not calculate if th e sex is unknown or if thepatient's ag e is <18 years. CREATININE (test 4.8 mg/dL 0.6-1.3 H code = CREAT) CALCIUM (test code = 8.5 mg/dL 8.0-10.5 N CA) [id number] 04:19:00 Test Item Value Reference Range Interpretation Comments MAGNESIUM (test code = MAG) 2.40 mg/dL 1.80-2.40 N CBC W/AUTO [id number] 04:05:00 Test Item Value Reference Range Interpretation [...] NO = MDIFF) - XR CHEST 1 [id number] 00:00:00 [facility] : 1940 Sex: M FAX: Radha Ward MD [phone] [place]: St: ADM FAX: Los Crawford [phone] FAX: Jana Mittal MD FAX: Sarbjit Sherman [phone] Name: SHERRI ARCE [facility] : 1940 Age/S: 81/M [address] [place] [address] Unit #: [id number] Loc: [address] [address] Phys: Jana Mittal MD Acct: [id number] Dis Date: Status: ADM IN PHONE #: [phone] Exam Date: 07/14/2022 1411 FAX #: [phone] Reason:CHEST TUBE PLACEMENT EXAMS: CPT CODE: [id number] XR CHEST 1 V 76336 PROCEDURE INFORMATION: Exam: XR Chest Exam date [...] could be a right pleural effusion, stable. Heart/Mediastinum:Stable heart size. Vasculature: Atherosclerotic calcifications. Bones/joints: Stable. Median sternotomy wires. IMPRESSION: Interval placement of left chest tube near the apex with decreased size of left pneumothorax now small. Otherwise, stable exam. at 1509 Reported and signed by: Ranjan Sesay M.D. CC: Radha Ward MD; Los Crawford DO; Jana Mittal MD; Sarbjit Mcarthur MD Technologist: Eloisa Cali, RT(R) Trnscrd Date/Time/By: 07/14/2022 (150) : By: [email or web address] Orig Print D/T: S: 07/14/2022 (1971) PAGE 1 Signed Report- CT GUID [facility] (Biopsy/Asp)2022-07-14 [facility] 1940 Sex: M Name: SHERRI ARCE [facility] : 1940 Age/S: 81 / M [address] [place] [address] Blvd Unit #: [id number] Loc: [place] [address] Phys: Gianna Hoover Acct: [id number] Dis Date: Status: ADM IN PHONE #: [phone] Exam Date: 07/14/2022 1509 FAX #: [phone] Reason: Left Pneumothorax- pigtail cath placement EXAMS: CPT CODE: [id number] CT [facility]UID [facility] (Biopsy/Asp) 92712 PROCEDURE INFORMATION: Exam: IR Thoracentesis, Aspiration With [...] 1 Signed Report (CONTINUED) Name: SHERRI ARCE [facility] : 1940 Age/S: 81 / M [address] [place] [address] Unit #: [id number] Loc: [place] [address] Phys: Gianna Hoover Acct: [id number] Dis Date: Status: ADM IN PHONE #: [phone] Exam Date: 07/14/2022 1507 FAX #: [phone] Reason: Left Pneumothorax- pigtail cath placement EXAMS: CPT CODE: [id number] CT GUID NDL [facility] (Biopsy/Asp) 09816 (Continued) usual sterile fashion and satisfactory an [...] and the tract was dilated to 8 Kinyarwanda. An 8.5 Kinyarwanda pigtail catheter was then placed. The catheterwas then connected to a pleura vac which was connected to low continuous wall suction. Repeat CT imaging demonstrated resolution of the pneumothorax. The catheter was then secured at the skin exit site with a 2 0 silk suture. A clean dressing was then applied. The patient tolerated the procedure well. Complications: No complications. IMPRESSION: CT-guided left chest tube placement. ElectronicallySigned by Ingrid Block on 07/14/2022 at 1225 Reported and signed by: Hansa Block M.D. CC: Radha Ward MD; Los Crawford DO; Sarbjit Mcarthur MD; Gianna LIZARRAGA Technologist:RT Jalyn(R)(CT) CTDI: DLP: Trnscb Date/Time: 07/14/2022 (1225) [email or web address] Orig Print D/T: S: 07/14/2022 (0293) PAGE 2 Signed Report- XR CHEST 1 [id number] 00:00:00 [facility] : 1940 Sex: M FAX: Radha Ward MD [phone] [place]: St: FAX: Los Crawford [phone] FAX: Ana Toribio [phone] FAX: Sarbjit Sherman [phone] Name: SHERRI ARCE [facility] Pedro David : 1940 Age/S: 81/M [address] [place] [address] Unit #: [id number] Loc: [address] [address] Phys: Rosalind Puentes NP Acct: [id number] Dis Date: Status: ADM IN PHONE #: [phone] Exam Date: 07/14/2022626 FAX#: [phone] Reason: Cardiac Surgery Post Op EXAMS: CPT CODE: [id number] XR CHEST 1 V 46425 PROCEDURE INFORMATION: Exam: XR Chest Exam date and time: 07/14/2022 6:26 AM Age: 81 years old Clinical indication: Other: Cardiac surgery post op TECHNIQUE: Imaging protocol: Radiologic exam of the chest. Views: 1 view. COMPARISON: CR XR CHEST 1V 07/13/2022 [...] D/T: S: 07/14/2022 (914) PAGE 1 Signed ReportPOC ARTERIAL BLOOD GAS 2022-07-13 10:47:00 Test Item Value Reference Range Interpretation Comments POC ARTERIAL BLOOD GAS PH (test 7.388 7.35-7.45 N code = POCPHA) POC ARTERIAL BLOOD GAS PCO2 (test 31.6 mmHg 35.0-45 L code = [id number]) POC TCO2 ARTERIAL (test code = 20.0 POCTCO2) POC ARTERIAL BLOOD GAS PO2 (test 80.5 mmHg 80-100.0 N code = XJYOS4H) POC HCO3 ARTERIAL (test code = 19.0 MMOL/L 22.0-26.0 L [id number]) POC BASE EXCESS (test code = -5.9 MMOL/L -4.0-4.0 L POCBEA) POC O2 SATURATION (test code = 95.9 % 90-100 N POCO2S) ABG DELIVERY (test code = JH) Room Air BASIC METABOLIC [id number] 10:47:00 Test Item Value Reference Range Interpretation [...] = POCGLU) 137 MG/DL 70-110 H HEMOGLOBIN [id number] 10:47:00 Test Item Value Reference Range Interpretation Comments HEMOGLOBIN ABG (test code = HGB/ABG) 9.0 G/DL 12.5-16.9 L [id number] 10:47:00 Test Item Value Reference Range Interpretation Comments HEMATOCRIT (test code = HCT/ABG) 26 % 37.5-50.7 L POC LACTIC [id number] 10:47:00 Test Item Value Reference Range Interpretation Comments POC LACTIC ACID (test code = 1.8 mmol/l 0.9-1.7 H POCLAC) POC ARTERIAL BLOOD [id number] 03:26:00 Test Item Value Reference Range Interpretation Comments POC ARTERIAL BLOOD GAS PH (test 7.415 7.35-7.45 N code = POCPHA) POC ARTERIAL BLOOD GAS PCO2 35.4 mmHg 35.0-45 N (test code = HNNTVU6R) POC TCO2 ARTERIAL (test code = 23.8 POCTCO2) POC ARTERIAL BLOOD GAS PO2 (test 68.5 mmHg 80-100.0 L code = QQXKA8F) POC HCO3 ARTERIAL (test code = 22.7 MMOL/L 22.0-26.0 N [id number]) POC BASE EXCESS (test code = -1.9 MMOL/L -4.0-4.0 N POCBEA) POC O2 SATURATION (test code = 93.8 % 90-100 N POCO2S) FIO2 (test code = FIO2A) 32 % PaO2/FiO2 (test code = XJM3VKZ9) 214.06 mm/Hg ABG DELIVERY (test code = JH) Cannula ABG SITE (test code = SITEA) Art Line BASIC METABOLIC [id number] 03:26:00 Test Item Value Reference Range Interpretation [...] = POCGLU) 84 MG/DL 70-110 N HEMOGLOBIN [id number] 03:26:00 Test Item Value Reference Range Interpretation Comments HEMOGLOBIN ABG (test code = HGB/ABG) 7.9 G/DL 12.5-16.9 L [id number] 03:26:00 Test Item Value Reference Range Interpretation Comments HEMATOCRIT (test code = HCT/ABG) 23 % 37.5-50.7 L POC LACTIC [id number] 03:26:00 Test Item Value Reference Range Interpretation Comments POC LACTIC ACID (test code = 0.6 mmol/l 0.9-1.7 L POCLAC) BASIC METABOLIC [id number] 03:25:00 Test Item Value Reference Range Interpretation [...] code = 8.0 mg/dL 8.0-10.5 N CA) [id number] 03:25:00 Test Item Value Reference Range Interpretation Comments MAGNESIUM (test code = MAG) 2.29 mg/dL 1.80-2.40 N CBC W/AUTO [id number] 03:12:00 Test Item Value Reference Range Interpretation [...] code = MDIFF) - XR CHEST 1 [id number] 00:00:00 [facility] : 1940 Sex: M FAX: Radha Ward MD [phone] [place]: St: ADM FAX: Los Crawford [phone] FAX: Ana Toribio [phone] FAX: Sarbjit Sherman [phone] Name: SHERRI ARCE [facility] Pedro David : 1940 Age/S: 81/M [address] [place] [address] Unit #: [id number] Loc: G.[address] [place] [address] Phys: Rosalind Puentes LAUNDRY ASSISTANT Acct: [id number] Dis Date: Status: ADM IN PHONE #: [phone] Exam Date: 07/13/2022 0652 FAX #: [phone] Reason: Cardiac Surgery Post Op Report Has Been Amended EXAMS: CPT CODE: [id number] XR CHEST 1 V 08285 Addendum - 07/13/2022 SIGNED 07/13/2022 ADDENDUM: [id number] RAD/CXR1 This is an addendum to the previously dictated report to document communication. Findings were discussed withNurse Espinal at 07/13/2022 9:18 AM BENZENE OPERATOR. [id number] Reported and signed by: Delmer Palma M.D. Report PROCEDURE INFORMATION: Exam: XR Chest Examdate and time: 07/13/2022 6:51 AM Age: 81 years old Clinical indication: Pain; Other: Cardiac surgery post op TECHNIQUE: Imaging protocol: Radiologic exam of the chest. Views: 1 view. COMPARISON: CR XR CHEST 1V 07/12/2022 5:48 AM FINDINGS: Tubes, catheters and devices: Right neck vascular sheath. Left med iastinal/chest tube. Lungs: Bilateral lung opacities have not [...] Signed Report (CONTINUED) FAX: Radha Ward MD [phone] [place]: St: ADM FAX: Los Crawford [phone] FAX: Ana Toribio [phone] FAX: Sarbjit Sherman [phone] Name: SHERRI ARCE [facility] : 1940 Age/S: 81/M [address] [place] [address] Unit #: [id number] Loc: G[address] [place] [address] Phys: Rosalind Puentes LAUNDRY ASSISTANT Acct: [id number] Dis Date: Status: ADM IN PHONE #: [phone] Exam Date: 07/13/2022 0652 FAX #: [phone] Reason: Cardiac Surgery Post Op Report Has Been Amended EXAMS: CPT CODE: [id number] XR CHEST 1 V 84417 (Continued) at 0915 Reported and signed by: Delmer Palma M.D. CC: Radha Ward MD; Los Crawford DO; Rosalind Toribio LAUNDRY ASSISTANT; Sarbjit Mcarthur MD Technologist: Isidro Jarquin; Elaina Reeves, RT(R) Trnscrd Date/Time/By: 07/13/2022 (914) : By: [email or web address] Orig Print D/T: S: 07/13/2022 (914) PAGE 2 Signed Report- US RETRO [id number] 00:00:00 [facility] 1940 Sex: M Name: SHERRI ARCE [facility] : 1940 Age/S: 81 / M [address] [place] [address] Unit #: [id number] Loc: [place] [address] Phys: Evelina Plaza MD Acct: [id number] Dis Date: Status: ADM IN PHONE #: [phone] Exam Date: 07/12/2022 1624 FAX #: [phone] Reason: hydronephrosis EXAMS: CPT CODE: [id number] US RETRO LTD 17818 PROCEDURE INFORMATION: Exam: US Retroperitoneal Limited. Exam [...] MD; Los Crawford DO Technologist: Ailin Hernadez RDMS(Bud)() Trnscb Date/Time: 07/13/2022 (0651) Humberto.AB53 PAGE 1 Signed ReportBASI METABOLIC [id number] 12:25:00 Test Item Value Reference Range Interpretation [...] code = 8.2 mg/dL 8.0-10.5 N CA) [id number] 12:25:00 Test Item Value Reference Range Interpretation Comments MAGNESIUM (test code = MAG) 2.03 mg/dL 1.80-2.40 CALCIUM [id number] 12:25:00 Test Item Value Reference Range Interpretation Comments CALCIUM IONIZED (test code = ARVIN) 1.12 MMOL/L 1.09-1.30 N CBC W/AUTO [id number] 12:07:00 Test Item Value Reference Range Interpretation [...] (test NO code = MDIFF) BASIC METABOLIC [id number] 04:50:00 Test Item Value Reference Range Interpretation [...] code = 8.6 mg/dL 8.0-10.5 N CA) [id number] 04:50:00 Test Item Value Reference Range Interpretation Comments MAGNESIUM (test code = MAG) 2.69 mg/dL 1.80-2.40 H CBC W/AUTO [id number] 04:33:00 Test Item Value Reference Range Interpretation [...] NO code = MDIFF) POC ARTERIAL BLOOD [id number] 04:15:00 Test Item Value Reference Range Interpretation Comments POC ARTERIAL BLOOD GAS PH (test 7.371 7.35-7.45 N code = POCPHA) POC ARTERIAL BLOOD GAS PCO2 (test 34.5 mmHg 35.0-45 L code = MPBTPW9H) POC TCO2 ARTERIAL (test code = 21.1 POCTCO2) POC ARTERIAL BLOOD GAS PO2 (test 58.5 mmHg 80-100.0 L code = EUKAH8K) POC HCO3 ARTERIAL (test code = 20.0 MMOL/L 22.0-26.0 L OPVMUV7X) POC BASE EXCESS (test code = -5.3 MMOL/L -4.0-4.0 L POCBEA) POC O2 SATURATION (test code = 89.5 % 90-100 L POCO2S) ABG DELIVERY (test code = JH) NC ABG SITE (test code = SITEA) Art Line BASIC METABOLIC [id number] 04:15:00 Test Item Value Reference Range Interpretation [...] = POCGLU) 130 MG/DL 70-110 H HEMOGLOBIN [id number] 04:15:00 Test Item Value Reference Range Interpretation Comments HEMOGLOBIN ABG (test code = HGB/ABG) 9.2 G/DL 12.5-16.9 L [id number] 04:15:00 Test Item Value Reference Range Interpretation Comments HEMATOCRIT (test code = HCT/ABG) 27 % 37.5-50.7 L POC LACTIC [id number] 04:15:00 Test Item Value Reference Range Interpretation Comments POC LACTIC ACID (test code = 0.6 mmol/l 0.9-1.7 L POCLAC) - XR CHEST 1 [id number] 00:00:00 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 Views: 1 view. COMPARISON: CR XR CHEST 1V 07/11/2022 5:08 AM FINDINGS: Tubes, catheters and devices: Westwood-Ally catheter has been removed. Left chest tube is demonstrated. Lungs: Iglj-pw-hegfutjn bilateral perihilar and basilar interstitial lung opacities, [...] Moderate to severe enlarged cardiac silhouette. 3. Zijw-ax-kjcltcin pulmonary edema versus infiltrates. Improvement. at 0736 Reported and signed by: Manuel Vega M.D. CC: Radha Ward MD; [place] DO; Rosalind Toribio NP Technologist: Isidro Jarquin; RT Dorcas(R) Trnscrd Date/Time/By: 07/12/2022 (0736) : By: [email or web address] Orig Print D/T:S: 07/12/2022 (9462) PAGE 1 Signed ReportBASIC METABOLIC PANEL 2022-07-11 [...] = 8.6 mg/dL 8.0-10.5 N CA) CALCIUM [id number] 23:16:00 Test Item Value Reference Range Interpretation Comments CALCIUM IONIZED (test code = ARVIN) 1.09 MMOL/L 1.09-1.30 N HGB [id number] 22:43:00 Test Item Value Reference Range Interpretation Comments HEMOGLOBIN (test code = HGB) 8.1 g/dL 12.5-16.9 L HEMATOCRIT (test code = HCT) 25.4 % 37.5-50.7 L GLUCOSE [id number] 20:41:00 Test Item Value Reference Range Interpretation Comments GLUCOSE BEDSIDE (test 122 MG/DL 70-110 H Perfor med by certified code = GLUBED) trouble operator at [facility] BASIC METABOLIC [id number] 16:09:00 Test Item Value Reference Range Interpretation [...] the recommended for lucretia for GFRby the [facility] Kidney Foundati on for Adults.The GFR will not calculate if th e sex is unknown or if thepatient's ag e is <18 years. CREATININE (test 3.8 mg/dL 0.6-1.3 H code = CREAT) CALCIUM (test code = 8.9 mg/dL 8.0-10.5 N CA) [id number] 16:09:00 Test Item Value Reference Range Interpretation Comments PHOSPHOROUS (test code = PHOS) 3.9 MG/DL 2.5-4.9 N [id number] 16:09:00 Test Item Value Reference Range Interpretation Comments MAGNESIUM (test code = MAG) 2.72 mg/dL 1.80-2.40 H CALCIUM [id number] 16:09:00 Test Item Value Reference Range Interpretation Comments CALCIUM IONIZED (test code = ARVIN) 1.17 MMOL/L 1.09-1.30 N POC ARTERIAL BLOOD [id number] 15:54:00 Test Item Value Reference Range Interpretation Comments POC ARTERIAL BLOOD GAS PH (test 7.347 7.35-7.45 L code = POCPHA) POC ARTERIAL BLOOD GAS PCO2 (test 37.9 mmHg 35.0-45 N code = AHYJXU2J) POC TCO2 ARTERIAL (test code = 22.0 POCTCO2) POC ARTERIAL BLOOD GAS PO2 (test 80.5 mmHg 80-100.0 N code = DOITG0N) POC HCO3 ARTERIAL (test code = 20.8 MMOL/L 22.0-26.0 L BTYLCR8A) POC BASE EXCESS (test code = -4.8 MMOL/L -4.0-4.0 L POCBEA) POC O2 SATURATION (test code = 95.2 % 90-100 N POCO2S) ABG DELIVERY (test code = JH) Cannula ABG TEMPERATURE (test code = 98.6 F TEMPA) ABG SITE (test code = SITEA) Art Line MARYLU'S TEST (test code = ALLENS) N/A BASIC METABOLIC [id number] 15:54:00 Test Item Value Reference Range Interpretation [...] = POCGLU) 159 MG/DL 70-110 H HEMOGLOBIN [id number] 15:54:00 Test Item Value Reference Range Interpretation Comments HEMOGLOBIN ABG (test code = HGB/ABG) 9.3 G/DL 12.5-16.9 L [id number] 15:54:00 Test Item Value Reference Range Interpretation Comments HEMATOCRIT (test code = HCT/ABG) 27 % 37.5-50.7 L POC LACTIC [id number] 15:54:00 Test Item Value Reference Range Interpretation Comments POC LACTIC ACID (test code = 1.1 mmol/l 0.9-1.7 N POCLAC) POC ARTERIAL BLOOD [id number] 09:52:00 Test Item Value Reference Range Interpretation Comments POC ARTERIAL BLOOD GAS PH (test 7.381 7.35-7.45 N code = POCPHA) POC ARTERIAL BLOOD GAS PCO2 (test 36.5 mmHg 35.0-45 N code = YFKOAB3P) POC TCO2 ARTERIAL (test code = 22.8 POCTCO2) POC ARTERIAL BLOOD GAS PO2 (test 71.5 mmHg 80-100.0 L code = LHQYD0G) POC HCO3 ARTERIAL (test code = 21.7 MMOL/L 22.0-26.0 L LVXSEQ2N) POC BASE EXCESS (test code = -3.4 MMOL/L -4.0-4.0 N POCBEA) POC O2 SATURATION (test code = 93.9 % 90-100 N POCO2S) ABG DELIVERY (test code = JH) Cannula ABG TEMPERATURE (test code = 98.8 F TEMPA) ABG SITE (test code = SITEA) Art Line MARYLU'S TEST (test code = ALLENS) N/A BASIC METABOLIC [id number] 09:52:00 Test Item Value Reference Range Interpretation [...] = POCGLU) 122 MG/DL 70-110 H HEMOGLOBIN [id number] 09:52:00 Test Item Value Reference Range Interpretation Comments HEMOGLOBIN ABG (test code = HGB/ABG) 9.2 G/DL 12.5-16.9 L [id number] 09:52:00 Test Item Value Reference Range Interpretation Comments HEMATOCRIT (test code = HCT/ABG) 27 % 37.5-50.7 L POC LACTIC [id number] 09:52:00 Test Item Value Reference Range Interpretation Comments POC LACTIC ACID (test code = 0.5 mmol/l 0.9-1.7 L POCLAC) GLUCOSE [id number] 07:55:00 Test Item Value Reference Range Interpretation Comments GLUCOSE BEDSIDE (test 117 MG/DL 70-110 H Perfor med by certified code = GLUBED) trouble operator at [facility] BASIC METABOLIC [id number] 04:32:00 Test Item Value Reference Range Interpretation [...] = POCGLU) 102 MG/DL 70-110 N HEMOGLOBIN [id number] 04:32:00 Test Item Value Reference Range Interpretation Comments HEMOGLOBIN ABG (test code = 10.5 G/DL 12.5-16.9 L HGB/ABG) [id number] 04:32:00 Test Item Value Reference Range Interpretation Comments HEMATOCRIT (test code = HCT/ABG) 31 % 37.5-50.7 L POC LACTIC [id number] 04:32:00 Test Item Value Reference Range Interpretation Comments POC LACTIC ACID (test code = 0.4 mmol/l 0.9-1.7 L POCLAC) POC VENOUS BLOOD [id number] 04:32:00 Test Item Value Reference Range Interpretation Comments POC VENOUS BLOOD GAS PH (test 7.369 7.33-7.45 N code = POCPHV) POC VENOUS BLOOD GAS PCO2 (test 42.1 mmHg 43-47 L code = FYAJDH6W) POC VENOUS BLOOD GAS PO2 (test 30.2 mmHG 10-50 N code = YQETM8M) POC TCO2 VENOUS (test code = 25.6 TTZPNV3F) POC HCO3 VENOUS (test code = 24.3 MMOL/L 22-27 N AZQEBT0O) POC BASE EXCESS VENOUS (test code -1.0 MMOL/L -4.0-4.0 N = POCBEV) POC O2 SATURATION VENOUS (test 55.6 % 60-80 L code = PGGQ3GC) VENOUS BLOOD GAS DELIVERY (test HFNC code = DELV) VENOUS BLOOD GAS SITE (test code Westwood Ally = SITEV) [id number] 03:34:00 Test Item Value Reference Range Interpretation Comments MAGNESIUM (test code = MAG) 2.89 mg/dL 1.80-2.40 H BASIC METABOLIC [id number] 03:14:00 Test Item Value Reference Range Interpretation [...] the recommended for lucretia for GFRby the [facility] Kid[facility] Found[facility] on for Adults.The GFR will not calculate if th e sex is unknown or if thepatient's ag e is <18 years. CREATININE (test 3.2 mg/dL 0.6-1.3 H code = CREAT) CALCIUM (test code = 9.0 mg/dL 8.0-10.5 N CA) COMMENTS: POD #1HEPATIC FUNCTION [id number] 03:14:00 Test Item Value Reference Range Interpretation [...] code = ALKP) COMMENTS: POD #1CBC W/AUTO [id number] 03:07:00 Test Item Value Reference Range Interpretation [...] NO code = MDIFF) POC ARTERIAL BLOOD [id number] 02:32:00 Test Item Value Reference Range Interpretation Comments POC ARTERIAL BLOOD GAS PH (test 7.375 7.35-7.45 N code = POCPHA) POC ARTERIAL BLOOD GAS PCO2 (test 40.6 mmHg 35.0-45 N code = NHMDIK7U) POC TCO2 ARTERIAL (test code = 25.0 POCTCO2) POC ARTERIAL BLOOD GAS PO2 (test 64.8 mmHg 80-100.0 L code = NVJCQ8O) POC HCO3 ARTERIAL (test code = 23.8 MMOL/L 22.0-26.0 N QXRHYV1K) POC BASE EXCESS (test code = -1.4 MMOL/L -4.0-4.0 N POCBEA) POC O2 SATURATION (test code = 91.8 % 90-100 N POCO2S) ABG DELIVERY (test code = JH) [facility] ABG SITE (test code = SITEA) Art Line BASIC METABOLIC [id number] 02:32:00 Test Item Value Reference Range Interpretation [...] = POCGLU) 109 MG/DL 70-110 N HEMOGLOBIN [id number] 02:32:00 Test Item Value Reference Range Interpretation Comments HEMOGLOBIN ABG (test code = HGB/ABG) 9.3 G/DL 12.5-16.9 L [id number] 02:32:00 Test Item Value Reference Range Interpretation Comments HEMATOCRIT (test code = HCT/ABG) 27 % 37.5-50.7 L POC LACTIC [id number] 02:32:00 Test Item Value Reference Range Interpretation Comments POC LACTIC ACID (test code = 0.5 mmol/l 0.9-1.7 L POCLAC) - XR CHEST 1 [id number] 00:00:00 [facility] LouisE : 1940 Sex: M FAX: Radha Ward MD [phone] [place]: St: [facility] FAX: Los Crawford [phone] FAX: Ana Toribio [phone] Name: SHERRI ARCE [facility] : 1940 Age/S: 81/M [address] [place] [address] Blvd Unit #: [id number] Loc: G.2202 [place] [address] Phys: Rosalind Puentes LAUNDRY ASSISTANT Acct: [id number] Dis Date: Status: ADM IN PHONE #: [phone] Exam Date: 07/11/2022 0554 FAX #: [phone] Reason: Cardiac Surgery Post Op EXAMS: CPT CODE: [id number] XR CHEST 1 V 74398 PROCEDURE INFORMATION: Exam: XR Chest Exam dateand time: 07/11/2022 5:08 AM Age: 81 years old Clinical indication: Other: Cardiac surgery post op TECHNIQUE: Imaging protocol: Radiologic exam of the chest. Views: 1 view. COMPARISON: CR XR CHEST 1V 07/10/2022 5:24 AM FINDINGS: Tubes, catheters and devices: Westwood-Ally catheter is present and enters right neck sheath. The Westwood-Ally catheter tip overlies the expected pulmonary outflow tract region. Left chest tube is demonstrated. Lungs: Moderate to severe degree diffuse, bilateral perihilar and basilar in terstitial alveolar pulmonary edema versus infiltrates, pneumonia within the lungs. Progression of right-sided lower lung opacities is demonstrated. Left- sided lung opacities appear stable. Pleural spaces: Small volume bilateral pleural effusions. No pneumothorax identified. Heart/Mediastinum: Cardiac silhouette appears moderately enlarged. Vasculature: Tortuous and ectatic aorta is demonstrated. Hwxf-ky-gunvsylf atherosclerotic calcification demonstrated within the aorta. Bones/joints: Diffusely decreased bone density. Moderate to severe generalized bony degenerative changes. Sternotomy wires, hardware is demonstrated. Soft tissues: Limited visualization of the upper chest, secondary to overlyinghead position. This study is limited by patient's body habitus. IMPRESSION: 1. Moderate enlarged cardiac silhouette. 2. Small bilateral pleural effusions. 3. Moderate to severe pulmonary edema versus infiltrates, pneumonia. Progression of opacities within right lower chest. 4. Degenerative and postsur gical changes are demonstrated, as described above. PAGE 1 Signed Report (CONTINUED) FAX: Maduh Ward [phone] [place]: St: ADM FAX: Los Crawford [phone] FAX: Ana Toribio [phone] Name: SHERRI ARCE [facility] : 1940 Age/S: 81/M [address] [place] [address] Unit #: [id number] Loc: GRaoul2202 [place] [address] Phys: Rosalind Puentes LAUNDRY ASSISTANT Acct: [id number] Dis Date: Status: ADM INPHONE #: [phone] Exam Date: 07/11/2022553 FAX #: [phone] Reason: Cardiac Surgery Post OpEXAMS: CPT CODE: [id number] XR CHEST 1 V 51419 (Continued) at 1254 Reported and signed by: Manuel Vega M.D. CC: Radha Ward MD; [place] Crawford DO; Rosalind Toribio NP Technologist: RT Britta(Taniya)Trnscrd Date/Time/By: 07/11/2022 (4601) : By: [email or web address] Orig Print D/T: S: 07/11/2022 (5692) PAGE 2 Signed ReportBASIC METABOLIC PANEL 2022-07-10 [...] the recommended for lucretia for GFRby the [facility] Kidney Foundati on for Adults.The GFR will not calculate if th e sex is unknown or if thepatient's ag e is <18 years. CREATININE (test 2.9 mg/dL 0.6-1.3 H code = CREAT) CALCIUM (test code = 8.6 mg/dL 8.0-10.5 N CA) [id number] 21:21:00 Test Item Value Reference Range Interpretation Comments MAGNESIUM (test code = MAG) 2.63 mg/dL 1.80-2.40 H CALCIUM [id number] 21:21:00 Test Item Value Reference Range Interpretation Comments CALCIUM IONIZED (test code = ARVIN) 1.14 MMOL/L 1.09-1.30 N GLUCOSE [id number] 16:38:00 Test Item Value Reference Range Interpretation Comments GLUCOSE BEDSIDE (test 126 MG/DL 70-110 H Perfor med by certified code = GLUBED) trouble operator at [facility] BASIC METABOLIC [id number] 15:12:00 Test Item Value Reference Range Interpretation [...] the recommended for lucretia for GFRby the [facility] Kidney Foundati on for Adults.The GFR will not calculate if th e sex is unknown or if thepatient's ag e is <18 years. CREATININE (test 2.6 mg/dL 0.6-1.3 H code = CREAT) CALCIUM (test code = 8.8 mg/dL 8.0-10.5 N CA) [id number] 15:12:00 Test Item Value Reference Range Interpretation Comments PHOSPHOROUS (test code = PHOS) 3.2 MG/DL 2.5-4.9 N [id number] 15:12:00 Test Item Value Reference Range Interpretation Comments MAGNESIUM (test code = MAG) 2.39 mg/dL 1.80-2.40 N CALCIUM [id number] 15:12:00 Test Item Value Reference Range Interpretation Comments CALCIUM IONIZED (test code = ARVIN) 1.19 MMOL/L 1.09-1.30 N CBC W/AUTO [id number] 15:00:00 Test Item Value Reference Range Interpretation [...] DIFF REQUIRED (test NO code = MDIFF) [id number] 14:54:00 Test Item Value Reference Range Interpretation Comments SURGICAL (test code = SR) -----RUN DATE: 07/10/22 [facility] PAGE 1 RUN TIME: 1454 Specimen Inquiry RUN USER: INTERFACE -----PATIENT: SHERRI ARCE LOC: AYO U #: [id number] AGE/SX: 81/M ROOM: [facility] RE07/02/22REG DR: Radha Ward MD : 44 BED: 1 DIS: STATUS: ADM IN TLOC: ----- SPEC #: [id number] RECD: 07/09/22 STATUS: JOSETiffany REDestiny #: [id number] AARON: 07/08/22- SUBM DR: Lina Schwarz MD ENTERED: 07/09/22 SP TYPE: SURGICAL OTHR DR: Self Referred Liset Ennis MD, Soubhi MD Burnette, Christopher A DO Chaugle, Abdul Hannan MD Raslan, Saleem MDORDERED: 95415, ANATOMIC SPEC COPIES TO: Self Referred Liset Ennis MD [address] [place] [address] Evelina Plaza MD [address] [place] [address] [place] [address] [facility] [address] [place] [address] Lina Schwarz MD [address] [place] [address]. [address] [place] [address] Mario Briseno MD [address] [facility] [address] [place] [address] PROCEDURES: 04096 (07/10/22-1433) TISSUES: A. ATRIUM - LEFT ATRIAL APPENDAGE CONTINUED ON NEXT PAGE -----RUN DATE: 07/10/22 [facility] - LAB PAGE 2 RUN TIME: 1453 Specimen Inquiry RUN USER: INTERFACE -----SPEC #: [id number] PATIENT: SHERRI ARCE #[id number] (Continued) CLINICAL HISTORY SAME FINAL DIAGNOSIS Heart, left atrial appendage, wedge biopsy: Myocardium with ischemic change; serosalinflammation, consistent with pericarditis. GROSS DESCRIPTION Received in formalin labeled "left atrial appendage "is a wedge biopsy of heart, 3.4 x 0.2x 1.4 cm, sectioned and entirely submitted (A)-(B). Technical component performed at [facility],[address] [place] [address], [place] [address] Unless gross only, the diagnosis is based [...] Signed SIGNATURE ON FILE Michelle Almonte 07/10/22 1454 ----- END OF REPORT GLUCOSE [id number] 12:08:00 Test Item Value Reference Range Interpretation Comments GLUCOSE BEDSIDE (test 146 MG/DL 70-110 H [facility] med by certified code = GLUBED) trouble operator at [facility] BASIC METABOLIC [id number] 10:44:00 Test Item Value Reference Range Interpretation [...] the recommended for lucretia for GFRby the [facility] Kidney Foundati on for Adults.The GFR will not calculate if th e sex is unknown or if thepatient's ag e is <18 years. CREATININE (test 2.5 mg/dL 0.6-1.3 H code = CREAT) CALCIUM (test code = 8.9 mg/dL 8.0-10.5 N CA) [id number] 10:44:00 Test Item Value Reference Range Interpretation Comments PHOSPHOROUS (test code = PHOS) 3.7 MG/DL 2.5-4.9 N [id number] 10:44:00 Test Item Value Reference Range Interpretation Comments MAGNESIUM (test code = MAG) 2.28 mg/dL 1.80-2.40 N CALCIUM [id number] 10:44:00 Test Item Value Reference Range Interpretation Comments CALCIUM IONIZED (test code = ARVIN) 1.21 MMOL/L 1.09-1.30 N GLUCOSE [id number] 10:23:00 Test Item Value Reference Range Interpretation Comments GLUCOSE BEDSIDE (test 111 MG/DL 70-110 H Perfor med by certified code = GLUBED) trouble operator at [facility] POC ARTERIAL BLOOD [id number] 10:12:00 Test Item Value Reference Range Interpretation Comments POC ARTERIAL BLOOD GAS PH (test 7.385 7.35-7.45 N code = POCPHA) POC ARTERIAL BLOOD GAS PCO2 (test 46.4 mmHg 35.0-45 H code = LTLRXZ4P) POC TCO2 ARTERIAL (test code = 29.2 POCTCO2) POC ARTERIAL BLOOD GAS PO2 (test 89.1 mmHg 80-100.0 N code = XUWJQ9I) POC HCO3 ARTERIAL (test code = 27.8 MMOL/L 22.0-26.0 H ZJQMSA4I) POC BASE EXCESS (test code = 2.7 MMOL/L -4.0-4.0 N POCBEA) POC O2 SATURATION (test code = 96.7 % 90-100 N POCO2S) ABG DELIVERY (test code = JH) Cannula ABG TEMPERATURE (test code = 98.4 F TEMPA) ABG SITE (test code = SITEA) Art Line MARYLU'S TEST (test code = ALLENS) N/A BASIC METABOLIC [id number] 10:12:00 Test Item Value Reference Range Interpretation [...] = POCGLU) 139 MG/DL 70-110 H HEMOGLOBIN [id number] 10:12:00 Test Item Value Reference Range Interpretation Comments HEMOGLOBIN ABG (test code = HGB/ABG) 8.0 G/DL 12.5-16.9 L [id number] 10:12:00 Test Item Value Reference Range Interpretation Comments HEMATOCRIT (test code = HCT/ABG) 24 % 37.5-50.7 L POC LACTIC [id number] 10:12:00 Test Item Value Reference Range Interpretation Comments POC LACTIC ACID (test code = 1.3 mmol/l 0.9-1.7 N POCLAC) GLUCOSE [id number] 06:10:00 Test Item Value Reference Range Interpretation Comments GLUCOSE BEDSIDE (test 146 MG/DL 70-110 H Perfor med by certified code = GLUBED) trouble operator at [facility] GLUCOSE [id number] 05:27:00 Test Item Value Reference Range Interpretation Comments GLUCOSE BEDSIDE (test 129 MG/DL 70-110 H Perfor med by certified code = GLUBED) trouble operator at [facility] BASIC METABOLIC [id number] 04:28:00 Test Item Value Reference Range Interpretation [...] 8.0-10.5 N CA) COMMENTS: POD #1HEPATIC FUNCTION [id number] 04:28:00 Test Item Value Reference Range Interpretation [...] 20-125 N code = ALKP) COMMENTS: POD #[id number] 04:28:00 Test Item Value Reference Range Interpretation Comments PHOSPHOROUS (test code = PHOS) 3.8 MG/DL 2.5-4.9 N COMMENTS: POD #[id number] 04:28:00 Test Item Value Reference Range Interpretation Comments MAGNESIUM (test code = MAG) 2.32 mg/dL 1.80-2.40 N COMMENTS: POD #1CALCIUM [id number] 04:28:00 Test Item Value Reference Range Interpretation Comments CALCIUM IONIZED (test code = ARVIN) 1.14 MMOL/L 1.09-1.30 N COMMENTS: POD #1CBC W/AUTO [id number] 03:50:00 Test Item Value Reference Range Interpretation [...] NO code = MDIFF) POC ARTERIAL BLOOD [id number] 03:36:00 Test Item Value Reference Range Interpretation Comments POC ARTERIAL BLOOD GAS PH (test 7.408 7.35-7.45 N code = POCPHA) POC ARTERIAL BLOOD GAS PCO2 (test 42.4 mmHg 35.0-45 N code = PKOHJV1C) POC TCO2 ARTERIAL (test code = 28.1 POCTCO2) POC ARTERIAL BLOOD GAS PO2 (test 62.6 mmHg 80-100.0 L code = CTELH7V) POC HCO3 ARTERIAL (test code = 26.8 MMOL/L 22.0-26.0 H JKBXYW9A) POC BASE EXCESS (test code = 2.1 MMOL/L -4.0-4.0 N POCBEA) POC O2 SATURATION (test code = 91.7 % 90-100 N POCO2S) ABG DELIVERY (test code = JH) HFNC ABG SITE (test code = SITEA) Art Line BASIC METABOLIC [id number] 03:36:00 Test Item Value Reference Range Interpretation [...] = POCGLU) 111 MG/DL 70-110 H HEMOGLOBIN [id number] 03:36:00 Test Item Value Reference Range Interpretation Comments HEMOGLOBIN ABG (test code = HGB/ABG) 8.3 G/DL 12.5-16.9 L [id number] 03:36:00 Test Item Value Reference Range Interpretation Comments HEMATOCRIT (test code = HCT/ABG) 24 % 37.5-50.7 L POC LACTIC [id number] 03:36:00 Test Item Value Reference Range Interpretation Comments POC LACTIC ACID (test code = 0.7 mmol/l 0.9-1.7 L POCLAC) GLUCOSE [id number] 02:29:00 Test Item Value Reference Range Interpretation Comments GLUCOSE BEDSIDE (test 87 MG/DL 70-110 N Perfor med by certified code = GLUBED) trouble operator at [facility] - XR CHEST 1 [id number] 00:00:00 [facility] 1940 Sex: M FAX: Radha Ward MD [phone] [place]: St: ADM FAX: [place] [phone] FAX: Ana Toribio [phone] Name: SHERRI ARCE [facility] [place] : 1940 Age/S: 81/M [address] [place] [address] Unit #: [id number] Loc: [address] [address] Phys: Rosalind Puentes LAUNDRY ASSISTANT Acct: [id number] Dis Date: Status:ADM IN PHONE #: [phone] Exam Date: 07/10/2022525 FAX #: [phone] Reason: Cardiac SurgeryPost Op Report Has Been Amended EXAMS: CPT CODE: [id number] XR CHEST 1 V 68912 Addendum - 07/10/2022 SIGNED 07/10/2022 ADDENDUM: [id number] RAD/CXR1 Notes: Findings were discussed with Dr. Flannery at 07/10/2022 8:36 AM BENZENE OPERATOR. at 08 37 Reported and signed by: Babak Ratliff M.D. Report PROCEDURE INFORMATION: Exam: XR Chest Exam date and time: 07/10/2022 5:24 AM Age: 81 years old Clinical indication: Other: Cardiac surgery postop TECHNIQUE: Imaging protocol: Radiologic exam of the chest. Views: 1 view. COMPARISON: 1. CR XR CH EST 1V 07/09/2022 4:56 AM 2. CR XR CHEST 1V 07/08/2022 7:14 PM FINDINGS: Tubes, catheters and devices:Right IJ Westwood-Ally catheter tip at the level of pulmonary arterial bifurcation. Mediastinal and leftthoracostomy drains in place. EKG and epicardial pacer [...] Signed Report (CONTINUED) FAX: Radha Ward MD [phone]: St: ADM FAX: [place] [phone] FAX: Ana Troibio [phone] ---- Name: SHERIR ARCE [facility] : 1940 Age/S: 81/M [address] [place] [address] Unit #: [id number] Loc: G.[address] [place] [address] Phys: Rosalind Puentes LAUNDRY ASSISTANT Acct: [id number] Dis Date: Status: ADM IN PHONE #: [phone] Exam Date: 07/10/2022525 FAX #: [phone] Reason: Cardiac Surgery Post Op Report Has Been Amended EXAMS: CPT CODE: [id number] XR CHEST 1 V 52610 (Continued) thoracostomy tube in place. 2. Stable pulmonary opacities likely combination of airspace disease and atelectasis. 3. Stable smallpleural effusions. 4. Stable postoperative cardiomediastinal silhouette. at 0830 Reported and signed by: Babak Ratliff M.D. CC: Radha Ward MD; [place] DO; Rosalind Toribio NP Technologist: RT Adrian(R) Trnscrd Date/Time/By: 07/10/2022 (0830) : By: StevenKWL Orig Print D/T: S: 07/10/2022 (4776) PAGE2 Signed ReportBASIC METABOLIC [id number] 23:54:00 Test Item Value Reference Range Interpretation [...] = POCGLU) 152 MG/DL 70-110 H HEMOGLOBIN [id number] 23:54:00 Test Item Value Reference Range Interpretation Comments HEMOGLOBIN ABG (test code = HGB/ABG) 8.1 G/DL 12.5-16.9 L [id number] 23:54:00 Test Item Value Reference Range Interpretation Comments HEMATOCRIT (test code = HCT/ABG) 24 % 37.5-50.7 L POC LACTIC [id number] 23:54:00 Test Item Value Reference Range Interpretation Comments POC LACTIC ACID (test code = 0.6 mmol/l 0.9-1.7 L POCLAC) POC VENOUS BLOOD [id number] 23:54:00 Test Item Value Reference Range Interpretation Comments POC VENOUS BLOOD GAS PH (test 7.361 7.33-7.45 N code = POCPHV) POC VENOUS BLOOD GAS PCO2 (test 46.8 mmHg 43-47 N code = LGARMZ9D) POC VENOUS BLOOD GAS PO2 (test 33.2 mmHG 10-50 N code = NNOXR8N) POC TCO2 VENOUS (test code = 27.9 HGZNKU9Q) POC HCO3 VENOUS (test code = 26.5 MMOL/L 22-27 N MYHJJV9Z) POC BASE EXCESS VENOUS (test code 1.1 MMOL/L -4.0-4.0 N = POCBEV) POC O2 SATURATION VENOUS (test 61.0 % 60-80 N code = CJJK1OX) VENOUS BLOOD GAS DELIVERY (test HFNC code = DELV) VENOUS BLOOD GAS SITE (test code Colby Canales = SITEV) BASIC METABOLIC [id number] 22:13:00 Test Item Value Reference Range Interpretation [...] the recommended for lucretia for GFRby the [facility] Kidney Foundati on for Adults.The GFR will not calculate if th e sex is unknown or if thepatient's ag e is <18 years. CREATININE (test 2.8 mg/dL 0.6-1.3 H code = CREAT) CALCIUM (test code = 7.9 mg/dL 8.0-10.5 L CA) [id number] 22:13:00 Test Item Value Reference Range Interpretation Comments PHOSPHOROUS (test code = PHOS) 4.1 MG/DL 2.5-4.9 N [id number] 22:13:00 Test Item Value Reference Range Interpretation Comments MAGNESIUM (test code = MAG) 2.25 mg/dL 1.80-2.40 N CALCIUM [id number] 22:13:00 Test Item Value Reference Range Interpretation Comments CALCIUM IONIZED (test code = ARVIN) 1.11 MMOL/L 1.09-1.30 N POC ARTERIAL BLOOD [id number] 21:34:00 Test Item Value Reference Range Interpretation Comments POC ARTERIAL BLOOD GAS PH (test 7.373 7.35-7.45 N code = POCPHA) POC ARTERIAL BLOOD GAS PCO2 (test 43.6 mmHg 35.0-45 N code = AVRKCP0C) POC TCO2 ARTERIAL (test code = 26.8 POCTCO2) POC ARTERIAL BLOOD GAS PO2 (test 69.7 mmHg 80-100.0 L code = VDVCS0R) POC HCO3 ARTERIAL (test code = 25.4 MMOL/L 22.0-26.0 N YJNGPZ6M) POC BASE EXCESS (test code = 0.2 MMOL/L -4.0-4.0 N POCBEA) POC O2 SATURATION (test code = 93.2 % 90-100 N POCO2S) ABG DELIVERY (test code = JH) HFNC ABG SITE (test code = SITEA) Art Line BASIC METABOLIC [id number] 21:34:00 Test Item Value Reference Range Interpretation [...] = POCGLU) 132 MG/DL 70-110 H HEMOGLOBIN [id number] 21:34:00 Test Item Value Reference Range Interpretation Comments HEMOGLOBIN ABG (test code = HGB/ABG) 7.8 G/DL 12.5-16.9 L [id number] 21:34:00 Test Item Value Reference Range Interpretation Comments HEMATOCRIT (test code = HCT/ABG) 23 % 37.5-50.7 L POC LACTIC [id number] 21:34:00 Test Item Value Reference Range Interpretation Comments POC LACTIC ACID (test code = 0.8 mmol/l 0.9-1.7 L POCLAC) GLUCOSE [id number] 20:28:00 Test Item Value Reference Range Interpretation Comments GLUCOSE BEDSIDE (test 104 MG/DL 70-110 N Perfor med by certified code = GLUBED) trouble operator at [facility] POC ARTERIAL BLOOD [id number] 18:43:00 Test Item Value Reference Range Interpretation Comments POC ARTERIAL BLOOD GAS PH (test 7.346 7.35-7.45 L code = POCPHA) POC ARTERIAL BLOOD GAS PCO2 (test 45.9 mmHg 35.0-45 H code = TIYCDM5L) POC TCO2 ARTERIAL (test code = 26.5 POCTCO2) POC ARTERIAL BLOOD GAS PO2 (test 50.5 mmHg 80-100.0 L code = NBYNO0I) POC HCO3 ARTERIAL (test code = 25.1 MMOL/L 22.0-26.0 N FCPZDC8L) POC BASE EXCESS (test code = -0.6 MMOL/L -4.0-4.0 N POCBEA) POC O2 SATURATION (test code = 83.1 % 90-100 L POCO2S) ABG DELIVERY (test code = JH) Room Air ABG SITE (test code = SITEA) R Radial BASIC METABOLIC [id number] 18:43:00 Test Item Value Reference Range Interpretation [...] = POCGLU) 115 MG/DL 70-110 H HEMOGLOBIN [id number] 18:43:00 Test Item Value Reference Range Interpretation Comments HEMOGLOBIN ABG (test code = HGB/ABG) 8.3 G/DL 12.5-16.9 L [id number] 18:43:00 Test Item Value Reference Range Interpretation Comments HEMATOCRIT (test code = HCT/ABG) 25 % 37.5-50.7 L POC LACTIC [id number] 18:43:00 Test Item Value Reference Range Interpretation Comments POC LACTIC ACID (test code = 1.1 mmol/l 0.9-1.7 N POCLAC) BASIC METABOLIC [id number] 16:20:00 Test Item Value Reference Range Interpretation [...] the recommended for lucretia for GFRby the [facility] Kidney Foundati on for Adults.The GFR will not calculate if th e sex is unknown or if thepatient's ag e is <18 years. CREATININE (test 3.2 mg/dL 0.6-1.3 H code = CREAT) CALCIUM (test code = 8.7 mg/dL 8.0-10.5 N CA) [id number] 16:20:00 Test Item Value Reference Range Interpretation Comments MAGNESIUM (test code = MAG) 2.28 mg/dL 1.80-2.40 N CALCIUM [id number] 16:20:00 Test Item Value Reference Range Interpretation Comments CALCIUM IONIZED (test code = ARVIN) 1.16 MMOL/L 1.09-1.30 N CBC W/AUTO [id number] 16:10:00 Test Item Value Reference Range Interpretation [...] (test NO code = MDIFF) BASIC METABOLIC [id number] 13:20:00 Test Item Value Reference Range Interpretation [...] the recommended for lucretia for GFRby the [facility] Foundati on for Adults.The GFR will not calculate if th e sex is unknown or if thepatient's ag e is <18 years. CREATININE (test 3.9 mg/dL 0.6-1.3 H code = CREAT) CALCIUM (test code = 7.8 mg/dL 8.0-10.5 L CA) [id number] 13:20:00 Test Item Value Reference Range Interpretation Comments PHOSPHOROUS (test code = PHOS) 4.3 MG/DL 2.5-4.9 N [id number] 13:20:00 Test Item Value Reference Range Interpretation Comments MAGNESIUM (test code = MAG) 2.37 mg/dL 1.80-2.40 N CALCIUM [id number] 13:20:00 Test Item Value Reference Range Interpretation Comments CALCIUM IONIZED (test code = ARVIN) 1.08 MMOL/L 1.09-1.30 L GLUCOSE [id number] 12:56:00 Test Item Value Reference Range Interpretation Comments GLUCOSE BEDSIDE (test 162 MG/DL 70-110 H Perfor med by certified code = GLUBED) trouble operator at [facility] POC ARTERIAL BLOOD [id number] 10:35:00 Test Item Value Reference Range Interpretation Comments POC ARTERIAL BLOOD GAS PH (test 7.351 7.35-7.45 N code = POCPHA) POC ARTERIAL BLOOD GAS PCO2 (test 45.1 mmHg 35.0-45 H code = UAECGZ9T) POC TCO2 ARTERIAL (test code = 26.3 POCTCO2) POC ARTERIAL BLOOD GAS PO2 (test 73.8 mmHg 80-100.0 L code = ESKON2S) POC HCO3 ARTERIAL (test code = 25.0 MMOL/L 22.0-26.0 N IWIGLR8D) POC BASE EXCESS (test code = -0.6 MMOL/L -4.0-4.0 N POCBEA) POC O2 SATURATION (test code = 93.8 % 90-100 N POCO2S) ABG DELIVERY (test code = JH) Cannula ABG SITE (test code = SITEA) Art Line BASIC METABOLIC [id number] 10:35:00 Test Item Value Reference Range Interpretation [...] = POCGLU) 145 MG/DL 70-110 H HEMOGLOBIN [id number] 10:35:00 Test Item Value Reference Range Interpretation Comments HEMOGLOBIN ABG (test code = HGB/ABG) 7.3 G/DL 12.5-16.9 L [id number] 10:35:00 Test Item Value Reference Range Interpretation Comments HEMATOCRIT (test code = HCT/ABG) 21 % 37.5-50.7 L POC LACTIC [id number] 10:35:00 Test Item Value Reference Range Interpretation Comments POC LACTIC ACID (test code = 2.0 mmol/l 0.9-1.7 H POCLAC) GLUCOSE [id number] 08:55:00 Test Item Value Reference Range Interpretation Comments GLUCOSE BEDSIDE (test 154 MG/DL 70-110 H Perfor med by certified code = GLUBED) trouble operator at [facility] GLUCOSE [id number] 07:51:00 Test Item Value Reference Range Interpretation Comments GLUCOSE BEDSIDE (test 178 MG/DL 70-110 H Perfor med by certified code = GLUBED) trouble operator at [facility] CBC W/AUTO [id number] 03:38:00 Test Item Value Reference Range Interpretation [...] REQUIRED (test NO code = MDIFF) PLT [id number] 03:38:00 Test Item Value Reference Range Interpretation Comments PLATELET ESTIMATE (test 92 TO 115 THOUSAND ADEQUATE code = PLTEST) PLATELET MORPHOLOGY (test LARGE PLATELETS code = PLTMORPH) BASIC METABOLIC [id number] 03:38:00 Test Item Value Reference Range Interpretation [...] race indifferent and is the recommended for [facility] for GFRby the [facility] Kidney Foundati on for Adults.The GFR will not calculate if th e sex is unknown or if thepatient's ag e is <18 years. CREATININE (test 4.6 mg/dL 0.6-1.3 H code = CREAT) CALCIUM (test code = 8.9 mg/dL 8.0-10.5 N CA) COMMENTS: POD #1HEPATIC FUNCTION [id number] 03:38:00 Test Item Value Reference Range Interpretation [...] IUnit/L 20-125 code = ALKP) COMMENTS: POD #[id number] 03:38:00 Test Item Value Reference Range Interpretation Comments MAGNESIUM (test code = MAG) 2.45 mg/dL 1.80-2.40 H COMMENTS: POD #1BASIC METABOLIC [id number] 03:37:00 Test Item Value Reference Range Interpretation [...] = POCGLU) 229 MG/DL 70-110 H HEMOGLOBIN [id number] 03:37:00 Test Item Value Reference Range Interpretation Comments HEMOGLOBIN ABG (test code = HGB/ABG) 6.5 G/DL 12.5-16.9 L [id number] 03:37:00 Test Item Value Reference Range Interpretation Comments HEMATOCRIT (test code = HCT/ABG) 19 % 37.5-50.7 L POC LACTIC [id number] 03:37:00 Test Item Value Reference Range Interpretation Comments POC LACTIC ACID (test code = 5.9 mmol/l 0.9-1.7 HH POCLAC) POC VENOUS BLOOD [id number] 03:37:00 Test Item Value Reference Range Interpretation Comments MARYLU'S TEST (test code = ALLENS) N/A POC VENOUS BLOOD GAS PH (test 7.277 7.33-7.45 L code = POCPHV) POC VENOUS BLOOD GAS PCO2 (test 45.0 mmHg 43-47 N code = HDWPXR9R) POC VENOUS BLOOD GAS PO2 (test 35.4 mmHG 10-50 N code = NWGJJ1B) POC TCO2 VENOUS (test code = 22.4 AIUJEL5F) POC HCO3 VENOUS (test code = 21.0 MMOL/L 22-27 L ZXUQUK1N) POC BASE EXCESS VENOUS (test code -5.8 MMOL/L -4.0-4.0 L = POCBEV) POC O2 SATURATION VENOUS (test 60.2 % 60-80 N code = CGXN1WQ) VENOUS BLOOD GAS DELIVERY (test Cannula code = DELV) VENOUS BLOOD GAS TEMP (test code 98.6 F = TEMPV) VENOUS BLOOD GAS SITE (test code Colby Canales = SITEV) LACTIC [id number] 03:32:00 Test Item Value Reference Range Interpretation Comments LACTIC ACID (test 6.0 mmol/L 0.4-1.9 HH Critical r esult called code = LACT) to HALINA Lee.LA50 at 0 332 07/09/22Nurse taniya hdz back result and tech confirmed it's correct? YES POC ARTERIAL BLOOD [id number] 03:13:00 Test Item Value Reference Range Interpretation Comments POC ARTERIAL BLOOD GAS PH (test 7.310 7.35-7.45 L code = POCPHA) POC ARTERIAL BLOOD GAS PCO2 (test 42.8 mmHg 35.0-45 N code = MSDQKE2P) POC TCO2 ARTERIAL (test code = 22.8 POCTCO2) POC ARTERIAL BLOOD GAS PO2 (test 73.2 mmHg 80-100.0 L code = EKQRA8N) POC HCO3 ARTERIAL (test code = 21.5 MMOL/L 22.0-26.0 L ILHYPM6G) POC BASE EXCESS (test code = -4.7 MMOL/L -4.0-4.0 L POCBEA) POC O2 SATURATION (test code = 93.0 % 90-100 N POCO2S) ABG DELIVERY (test code = JH) Cannula ABG TEMPERATURE (test code = 98.6 F TEMPA) ABG SITE (test code = SITEA) Art Line MARYLU'S TEST (test code = ALLENS) N/A BASIC METABOLIC [id number] 03:13:00 Test Item Value Reference Range Interpretation [...] = POCGLU) 245 MG/DL 70-110 H HEMOGLOBIN [id number] 03:13:00 Test Item Value Reference Range Interpretation Comments HEMOGLOBIN ABG (test code = HGB/ABG) 7.0 G/DL 12.5-16.9 L [id number] 03:13:00 Test Item Value Reference Range Interpretation Comments HEMATOCRIT (test code = HCT/ABG) 21 % 37.5-50.7 L POC LACTIC [id number] 03:13:00 Test Item Value Reference Range Interpretation Comments POC LACTIC ACID (test code = 6.1 mmol/l 0.9-1.7 HH POCLAC) POC ARTERIAL BLOOD [id number] 03:01:00 Test Item Value Reference Range Interpretation Comments POC ARTERIAL BLOOD GAS PH (test 7.273 7.35-7.45 LL code = POCPHA) POC ARTERIAL BLOOD GAS PCO2 (test 46.4 mmHg 35.0-45 H code = CIWZSX5P) POC TCO2 ARTERIAL (test code = 23.1 POCTCO2) POC ARTERIAL BLOOD GAS PO2 (test 103.4 mmHg 80-100.0 H code = XTYCK7C) POC HCO3 ARTERIAL (test code = 21.6 MMOL/L 22.0-26.0 L ZEBGSW3I) POC BASE EXCESS (test code = -5.4 [...] (test code = ALLENS) N/A BASIC METABOLIC [id number] 03:01:00 Test Item Value Reference Range Interpretation [...] = POCGLU) 206 MG/DL 70-110 H HEMOGLOBIN [id number] 03:01:00 Test Item Value Reference Range Interpretation Comments HEMOGLOBIN ABG (test code = HGB/ABG) 8.7 G/DL 12.5-16.9 L [id number] 03:01:00 Test Item Value Reference Range Interpretation Comments HEMATOCRIT (test code = HCT/ABG) 26 % 37.5-50.7 L POC LACTIC [id number] 03:01:00 Test Item Value Reference Range Interpretation Comments POC LACTIC ACID (test code = 3.6 mmol/l 0.9-1.7 H POCLAC) GLUCOSE [id number] 02:45:00 Test Item Value Reference Range Interpretation Comments GLUCOSE BEDSIDE (test 230 MG/DL 70-110 H Perfor med by certified code = GLUBED) trouble operator at [facility] LACTIC ACID 2ND [id number] 02:04:00 Test Item Value Reference Range Interpretation Comments LACTIC ACID 2ND REPEAT (test code 6.6 mmol/L 0.4-1.9 HH = LACT2) - XR CHEST 1 [id number] 00:00:00 [facility] 1940 Sex: M FAX: Radha Ward MD [phone] [place]: St: ADM FAX: [place] [phone] FAX: Ana Toribio [phone] Name: YAZMINSHAYLEE LouisE [facility] : 1940 Age/S: 81/M [address] [place] [address] Unit #: [id number] Loc: [address] [place] [address] Phys: Rosalind Puentes LAUNDRY ASSISTANT Acct: [id number] Dis Date: Status: ADM IN PHONE #: [phone] Exam Date: 07/09/2022614 FAX #: [phone] Reason: Cardiac Surgery Post Op EXAMS: CPT CODE: [id number] XR CHEST 1 V 51878 PROCEDURE INFORMATION: Exam: XR Chest Exam dateand time: 07/09/2022 4:56 AM Age: 81 years old Clinical indication: Other: Cardiac surgery post op TECHNIQUE: Imaging protocol: Radiologic exam of the chest. Views: 1 view. COMPARISON: CR XR CHEST 1V 07/08/2022 7:14 PM FINDINGS: Tubes, catheters and devices: Endotracheal tube and enteric tube have been removed. Westwood-Ally catheter tip at the level of pulmonary [...] opacities likely combination of airspace disease and atelectasis.2. Stable left basilar pleuroparenchymal changes with small volume pleural effusions. 3. Stable postoperative cardiomediastinal silhouette. at 0955 Reported and signed by: Babak Ratliff M.D. CC: Radha Ward MD; [place] DO; Rosalind Toribio NP Technologist: RT Britta(Taniya) Trnscrd Date/Time/By: 07/09/2022 (0955) : By: Robert Orig Print D/T: S: 07/09/2022 (0956) PAGE 1 Signed ReportPO ARTERIAL BLOOD GAS 2022-07-08 23:43:00 Test Item Value Reference Range Interpretation Comments POC ARTERIAL BLOOD GAS PH (test 7.299 7.35-7.45 LL code = POCPHA) POC ARTERIAL BLOOD GAS PCO2 (test 41.3 mmHg 35.0-45 N code = GBQBDJ0G) POC TCO2 ARTERIAL (test code = 21.5 POCTCO2) POC ARTERIAL BLOOD GAS PO2 (test 109.2 mmHg 80-100.0 H code = EKWIR0I) POC HCO3 ARTERIAL (test code = 20.3 MMOL/L 22.0-26.0 L NMIRRY9X) POC BASE EXCESS (test code = -6.2 MMOL/L -4.0-4.0 L POCBEA) POC O2 SATURATION (test code = 97.7 % 90-100 N POCO2S) ABG DELIVERY (test code = JH) Cannula ABG TEMPERATURE (test code = 98.6 F TEMPA) ABG SITE (test code = SITEA) Art Line MARYLU'S TEST (test code = ALLENS) N/A BASIC METABOLIC [id number] 23:43:00 Test Item Value Reference Range Interpretation [...] = POCGLU) 234 MG/DL 70-110 H HEMOGLOBIN [id number] 23:43:00 Test Item Value Reference Range Interpretation Comments HEMOGLOBIN ABG (test code = HGB/ABG) 7.7 G/DL 12.5-16.9 L [id number] 23:43:00 Test Item Value Reference Range Interpretation Comments HEMATOCRIT (test code = HCT/ABG) 23 % 37.5-50.7 L POC LACTIC [id number] 23:43:00 Test Item Value Reference Range Interpretation Comments POC LACTIC ACID (test code = 5.1 mmol/l 0.9-1.7 HH POCLAC) LACTIC ACID [id number] 22:54:00 Test Item Value Reference Range Interpretation Comments LACTIC ACID REPEAT (test code = 5.0 mmol/l 0.4-1.9 HH LACTR) BASIC METABOLIC [id number] 20:54:00 Test Item Value Reference Range Interpretation [...] = POCGLU) 190 MG/DL 70-110 H HEMOGLOBIN [id number] 20:54:00 Test Item Value Reference Range Interpretation Comments HEMOGLOBIN ABG (test code = HGB/ABG) 8.0 G/DL 12.5-16.9 L [id number] 20:54:00 Test Item Value Reference Range Interpretation Comments HEMATOCRIT (test code = HCT/ABG) 23 % 37.5-50.7 L POC LACTIC [id number] 20:54:00 Test Item Value Reference Range Interpretation Comments POC LACTIC ACID (test code = 2.5 mmol/l 0.9-1.7 H POCLAC) POC VENOUS BLOOD [id number] 20:54:00 Test Item Value Reference Range Interpretation Comments MARYLU'S TEST (test code = ALLENS) N/A POC VENOUS BLOOD GAS PH (test 7.265 7.33-7.45 L code = POCPHV) POC VENOUS BLOOD GAS PCO2 (test 48.5 mmHg 43-47 H code = SYVXAN5L) POC VENOUS BLOOD GAS PO2 (test 41.1 mmHG 10-50 N code = ICHWE3O) POC TCO2 VENOUS (test code = 23.9 LGBVTX9Q) POC HCO3 VENOUS (test code = 22.3 MMOL/L 22-27 N NWXAQH9R) POC BASE EXCESS VENOUS (test code -4.9 MMOL/L -4.0-4.0 L = POCBEV) POC O2 SATURATION VENOUS (test 72.4 % 60-80 N code = KYSN3YT) VENOUS BLOOD GAS FIO2 (test code 50 % = FIO2V) VENOUS BLOOD GAS DELIVERY (test Adult Vent code = DELV) VBG VENT MODE (test code = MODEV) SIMV JAN. BLOOD GAS RESP. RATE (test 16 /min code = RRV) VBG TIDAL VOLUME (test code = 450 ml TVV) VENOUS BLOOD GAS PEEP (test code 5 cmH2O = PEEPV) VENOUS BLOOD GAS TEMP (test code 96.4 F = TEMPV) VENOUS BLOOD GAS SITE (test code Colby Canales = SITEV) CBC W/AUTO [id number] 20:37:00 Test Item Value Reference Range Interpretation [...] N code = NRBC#) COMMENTS: On arrivalPROTHROMBIN [id number] 20:37:00 Test Item Value Reference Range Interpretation [...] recurrent infar ct). COMMENTS: On arrivalTHROMBOPLASTIN TIME [id number] 20:37:00 Test Item Value Reference Range Interpretation Comments THROMBOPLASTIN TIME 31.3 Seconds 25.0-39.5 N Therape utic Range: PARTIAL (test code = 50.4 - 88.3 Seconds PTT) Effective 09/21/2018 COMMENTS: On arrivalBASIC METABOLIC [id number] 20:32:00 Test Item Value Reference Range Interpretation [...] 7.6 mg/dL 8.0-10.5 L CA) COMMENTS: On [id number] 20:32:00 Test Item Value Reference Range Interpretation Comments MAGNESIUM (test code = MAG) 2.53 mg/dL 1.80-2.40 H COMMENTS: On arrivalLACTIC [id number] 20:31:00 Test Item Value Reference Range Interpretation Comments LACTIC ACID (test code = LACT) 2.1 mmol/L 0.4-1.9 H POC ARTERIAL BLOOD [id number] 19:38:00 Test Item Value Reference Range Interpretation Comments POC ARTERIAL BLOOD GAS PH (test 7.263 7.35-7.45 LL code = POCPHA) POC ARTERIAL BLOOD GAS PCO2 44.1 mmHg 35.0-45 N (test code = [id number]) POC TCO2 ARTERIAL (test code = 21.5 POCTCO2) POC ARTERIAL BLOOD GAS PO2 (test 111.1 mmHg 80-100.0 H code = BNBFU5L) POC HCO3 ARTERIAL (test code = 20.1 MMOL/L 22.0-26.0 L [id number]) POC BASE EXCESS (test code = -7.1 MMOL/L -4.0-4.0 L POCBEA) POC O2 SATURATION (test code = 97.7 % 90-100 N POCO2S) FIO2 (test code = FIO2A) 50 % PaO2/FiO2 (test code = [id number]) 222.20 mm/Hg ABG DELIVERY (test code = JH) Adult Vent ABG VENT MODE (test code = AC MODEA) ABG VENT RESP RATE (test code = 16 /MIN RRA) ABG TIDAL VOLUME (test code = 450 ml TVA) ABG PEEP (test code = PEEPA) 5 cmH2O ABG TEMPERATURE (test code = 97.3 F TEMPA) ABG SITE (test code = SITEA) Art Line BASIC METABOLIC [id number] 19:38:00 Test Item Value Reference Range Interpretation [...] = POCGLU) 201 MG/DL 70-110 H HEMOGLOBIN [id number] 19:38:00 Test Item Value Reference Range Interpretation Comments HEMOGLOBIN ABG (test code = HGB/ABG) 8.3 G/DL 12.5-16.9 L [id number] 19:38:00 Test Item Value Reference Range Interpretation Comments HEMATOCRIT (test code = HCT/ABG) 24 % 37.5-50.7 L POC LACTIC [id number] 19:38:00 Test Item Value Reference Range Interpretation Comments POC LACTIC ACID (test code = 2.1 mmol/l 0.9-1.7 H POCLAC) [id number] 18:50:00 Test Item Value Reference Range Interpretation Comments ACT-ISTAT (test code 143 SEC 74-137 H Perform ed by certified = ACTI) trouble operator at [facility] POC ARTERIAL BLOOD [id number] 18:46:00 Test Item Value Reference Range Interpretation Comments POC ARTERIAL BLOOD GAS PH (test 7.313 7.35-7.45 L code = POCPHA) POC ARTERIAL BLOOD GAS PCO2 (test 36.8 mmHg 35.0-45 N code = UTAWST2N) POC TCO2 ARTERIAL (test code = 19.8 POCTCO2) POC ARTERIAL BLOOD GAS PO2 (test 375.0 mmHg 80-100.0 HH code = BWVEK1F) POC HCO3 ARTERIAL (test code = 18.7 MMOL/L 22.0-26.0 L QZVVME3J) POC BASE EXCESS (test code = -6.9 MMOL/L -4.0-4.0 L POCBEA) POC O2 SATURATION (test code = 99.9 % 90-100 N POCO2S) BASIC METABOLIC [id number] 18:46:00 Test Item Value Reference Range Interpretation [...] = POCGLU) 181 MG/DL 70-110 H HEMOGLOBIN [id number] 18:46:00 Test Item Value Reference Range Interpretation Comments HEMOGLOBIN ABG (test code = HGB/ABG) 7.5 G/DL 12.5-16.9 L [id number] 18:46:00 Test Item Value Reference Range Interpretation Comments HEMATOCRIT (test code = HCT/ABG) 22 % 37.5-50.7 L POC LACTIC [id number] 18:46:00 Test Item Value Reference Range Interpretation Comments POC LACTIC ACID (test code = 2.5 mmol/l 0.9-1.7 H POCLAC) [id number] 17:57:00 Test Item Value Reference Range Interpretation Comments KIRA-TYLERT (test code 522 SEC 74-137 H Perform ed by certified = ACTI) trouble operator at [facility] POC ARTERIAL BLOOD [id number] 17:50:00 Test Item Value Reference Range Interpretation Comments POC ARTERIAL BLOOD GAS PH (test 7.432 7.35-7.45 N code = POCPHA) POC ARTERIAL BLOOD GAS PCO2 (test 33.6 mmHg 35.0-45 L code = JLMOQR0G) POC TCO2 ARTERIAL (test code = 23.4 POCTCO2) POC ARTERIAL BLOOD GAS PO2 (test 404.5 mmHg 80-100.0 HH code = PRRXL5Z) POC HCO3 ARTERIAL (test code = 22.4 MMOL/L 22.0-26.0 N TFTLNI6L) POC BASE EXCESS (test code = -1.6 MMOL/L -4.0-4.0 N POCBEA) POC O2 SATURATION (test code = 100.0 % 90-100 N POCO2S) BASIC METABOLIC [id number] 17:50:00 Test Item Value Reference Range Interpretation [...] = POCGLU) 171 MG/DL 70-110 H HEMOGLOBIN [id number] 17:50:00 Test Item Value Reference Range Interpretation Comments HEMOGLOBIN ABG (test code = HGB/ABG) 7.7 G/DL 12.5-16.9 L [id number] 17:50:00 Test Item Value Reference Range Interpretation Comments HEMATOCRIT (test code = HCT/ABG) 23 % 37.5-50.7 L POC LACTIC [id number] 17:50:00 Test Item Value Reference Range Interpretation Comments POC LACTIC ACID (test code = 1.8 mmol/l 0.9-1.7 H POCLAC) [id number] 17:32:00 Test Item Value Reference Range Interpretation Comments MARYCHUY (test code 636 SEC 74-137 H Perform ed by certified = ACTI) trouble operator at [facility] POC ARTERIAL BLOOD [id number] 17:23:00 Test Item Value Reference Range Interpretation Comments POC ARTERIAL BLOOD GAS PH (test 7.401 7.35-7.45 N code = POCPHA) POC ARTERIAL BLOOD GAS PCO2 (test 33.4 mmHg 35.0-45 L code = SRAMTM8Q) POC TCO2 ARTERIAL (test code = 21.7 POCTCO2) POC ARTERIAL BLOOD GAS PO2 (test 327.7 mmHg 80-100.0 HH code = KIAHG3K) POC HCO3 ARTERIAL (test code = 20.7 MMOL/L 22.0-26.0 L WWTDIY8O) POC BASE EXCESS (test code = -3.6 MMOL/L -4.0-4.0 N POCBEA) POC O2 SATURATION (test code = 99.9 % 90-100 N POCO2S) BASIC METABOLIC [id number] 17:23:00 Test Item Value Reference Range Interpretation [...] = POCGLU) 171 MG/DL 70-110 H HEMOGLOBIN [id number] 17:23:00 Test Item Value Reference Range Interpretation Comments HEMOGLOBIN ABG (test code = HGB/ABG) 8.6 G/DL 12.5-16.9 L [id number] 17:23:00 Test Item Value Reference Range Interpretation Comments HEMATOCRIT (test code = HCT/ABG) 25 % 37.5-50.7 L POC LACTIC [id number] 17:23:00 Test Item Value Reference Range Interpretation Comments POC LACTIC ACID (test code = 1.2 mmol/l 0.9-1.7 N POCLAC) [id number] 16:57:00 Test Item Value Reference Range Interpretation Comments ACT-ISTAT (test code 648 SEC 74-137 H Perform ed by certified = ACTI) trouble operator at [facility] POC ARTERIAL BLOOD [id number] 16:46:00 Test Item Value Reference Range Interpretation Comments POC ARTERIAL BLOOD GAS PH (test 7.355 7.35-7.45 N code = POCPHA) POC ARTERIAL BLOOD GAS PCO2 (test 43.3 mmHg 35.0-45 N code = VMRDQA5G) POC TCO2 ARTERIAL (test code = 25.5 POCTCO2) POC ARTERIAL BLOOD GAS PO2 (test 469.8 mmHg 80-100.0 HH code = EWWMU9Z) POC HCO3 ARTERIAL (test code = 24.2 MMOL/L 22.0-26.0 N WPVBXT2I) POC BASE EXCESS (test code = -1.3 MMOL/L -4.0-4.0 N POCBEA) POC O2 SATURATION (test code = 100.0 % 90-100 N POCO2S) BASIC METABOLIC [id number] 16:46:00 Test Item Value Reference Range Interpretation [...] = POCGLU) 169 MG/DL 70-110 H HEMOGLOBIN [id number] 16:46:00 Test Item Value Reference Range Interpretation Comments HEMOGLOBIN ABG (test code = HGB/ABG) 8.4 G/DL 12.5-16.9 L [id number] 16:46:00 Test Item Value Reference Range Interpretation Comments HEMATOCRIT (test code = HCT/ABG) 25 % 37.5-50.7 L POC LACTIC [id number] 16:46:00 Test Item Value Reference Range Interpretation Comments POC LACTIC ACID (test code = 0.6 mmol/l 0.9-1.7 L POCLAC) [id number] 16:00:00 Test Item Value Reference Range Interpretation Comments ACT-ISTAT (test code 606 SEC 74-137 H Perform ed by certified = ACTI) trouble operator at [facility] [id number] 15:50:00 Test Item Value Reference Range Interpretation Comments HEMATOCRIT (test code = HCT/ABG) 32 % 37.5-50.7 L POC LACTIC [id number] 15:50:00 Test Item Value Reference Range Interpretation Comments POC LACTIC ACID (test code = 0.8 mmol/l 0.9-1.7 L POCLAC) POC ARTERIAL BLOOD [id number] 15:50:00 Test Item Value Reference Range Interpretation Comments POC ARTERIAL BLOOD GAS PH (test 7.262 7.35-7.45 LL code = POCPHA) POC ARTERIAL BLOOD GAS PCO2 (test 49.5 mmHg 35.0-45 H code = VSLSCX7I) POC TCO2 ARTERIAL (test code = 23.8 POCTCO2) POC ARTERIAL BLOOD GAS PO2 (test 458.7 mmHg 80-100.0 HH code = DWMMG9S) POC HCO3 ARTERIAL (test code = 22.3 MMOL/L 22.0-26.0 N IPGWVE4A) POC BASE EXCESS (test code = -4.8 MMOL/L -4.0-4.0 L POCBEA) POC O2 SATURATION (test code = 100.0 % 90-100 N POCO2S) BASIC METABOLIC [id number] 15:50:00 Test Item Value Reference Range Interpretation [...] = POCGLU) 141 MG/DL 70-110 H HEMOGLOBIN [id number] 15:50:00 Test Item Value Reference Range Interpretation Comments HEMOGLOBIN ABG (test code = 10.8 G/DL 12.5-16.9 L HGB/ABG) [id number] 15:07:00 Test Item Value Reference Range Interpretation Comments ACT-ISTAT (test code 137 SEC 74-137 N Perform ed by certified = ACTI) trouble operator at [facility] POC ARTERIAL BLOOD [id number] 14:52:00 Test Item Value Reference Range Interpretation Comments POC ARTERIAL BLOOD GAS PH (test 7.330 7.35-7.45 L code = POCPHA) POC ARTERIAL BLOOD GAS PCO2 (test 40.0 mmHg 35.0-45 N code = CYPNXQ3W) POC TCO2 ARTERIAL (test code = 22.3 POCTCO2) POC ARTERIAL BLOOD GAS PO2 (test 487.7 mmHg 80-100.0 HH code = ORYJA7S) POC HCO3 ARTERIAL (test code = 21.1 MMOL/L 22.0-26.0 L KHIEXU9N) POC BASE EXCESS (test code = -4.5 MMOL/L -4.0-4.0 L POCBEA) POC O2 SATURATION (test code = 100.0 % 90-100 N POCO2S) BASIC METABOLIC [id number] 14:52:00 Test Item Value Reference Range Interpretation [...] = POCGLU) 88 MG/DL 70-110 N HEMOGLOBIN [id number] 14:52:00 Test Item Value Reference Range Interpretation Comments HEMOGLOBIN ABG (test code = 11.3 G/DL 12.5-16.9 L HGB/ABG) [id number] 14:52:00 Test Item Value Reference Range Interpretation Comments HEMATOCRIT (test code = HCT/ABG) 33 % 37.5-50.7 L POC LACTIC [id number] 14:52:00 Test Item Value Reference Range Interpretation Comments POC LACTIC ACID (test code = < 0.3 mmol/l 0.9-1.7 L POCLAC) PROTHROMBIN [id number] 06:01:00 Test Item Value Reference Range Interpretation [...] (to prevent recurrent infar ct). THROMBOPLASTIN TIME [id number] 06:01:00 Test Item Value Reference Range Interpretation Comments THROMBOPLASTIN TIME 31.8 Seconds 25.0-39.5 N Therape utic Range: PARTIAL (test code = 50.4 - 88.3 Seconds PTT) Effective 09/21/2018 COMPREHENSIVE METABOLIC [id number] 06:00:00 Test Item Value Reference Range Interpretation [...] 20-125 N TOTAL (test code = ALKP) [id number] 06:00:00 Test Item Value Reference Range Interpretation Comments PHOSPHOROUS (test code = PHOS) 3.8 MG/DL 2.5-4.9 N [id number] 06:00:00 Test Item Value Reference Range Interpretation Comments MAGNESIUM (test code = MAG) 1.92 mg/dL 1.80-2.40 N CBC W/AUTO [id number] 05:48:00 Test Item Value Reference Range Interpretation [...] NO = MDIFF) - XR CHEST 1 [id number] 00:00:00 [facility] 1940 Sex: M FAX: Radha Ward MD [phone] [place]: St: [facility] FAX: [place] [phone] FAX: Ana Toribio [phone] Name: SHAYLEE ARCEE [facility] : 1940 Age/S: 81/M [address] [place] [address] Unit #: [id number] Loc: G.2202 [place] [address] Phys: Rosalind Puentes LAUNDRY ASSISTANT Acct: [id number] Dis Date: Status: ADM IN PHONE #: [phone] Exam Date: 07/08/20221919 FAX #: [phone] Reason: Cardiac Surgery Post Op EXAMS: CPT CODE: [id number] XR CHEST 1 V 08913 PROCEDURE INFORMATION: Exam: XR Chest Exam date and time: 07/08/2022 7:14 PM Age: 81 years old Clinical indication: Other: Cardiac surgery post op TECHNIQUE: Imaging protocol: Radiologic exam of the chest. Views: 1 view. COMPARISON: CT CHEST W/O CONTRAST 07/03/2022 11:54 AM FINDINGS: Lungs: There is minimal vascular congestion with bibasilar pulmonaryopacities. The tip of an endotracheal tube is 7 cm cephalad of the michael. A right IJ Westwood-Ally catheter tip projects overlying the midline cardiac [...] Elton Mccray Date/Time/By: 07/08/2022 (1957) : By: StevenTDO Orig Print D/T: S: 07/08/2022 (1957) PAGE 1 Signed ReportGLUCOSE [id number] 18:27:00 Test Item Value Reference Range Interpretation Comments GLUCOSE BEDSIDE (test 112 MG/DL 70-110 H Perfor med by certified code = GLUBED) trouble operator at [facility] GLUCOSE [id number] 12:36:00 Test Item Value Reference Range Interpretation Comments GLUCOSE BEDSIDE (test 97 MG/DL 70-110 N Perfor med by certified code = GLUBED) trouble operator at [facility] PROTHROMBIN [id number] 06:05:00 Test Item Value Reference Range Interpretation [...] (to prevent recurrent infar ct). THROMBOPLASTIN TIME [id number] 06:05:00 Test Item Value Reference Range Interpretation Comments THROMBOPLASTIN TIME 33.5 Seconds 25.0-39.5 N Therape utic Range: PARTIAL (test code = 50.4 - 88.3 Seconds PTT) Effective 09/21/2018 B-TYPE NATRIURETIC [id number] 04:25:00 Test Item Value Reference Range Interpretation Comments B-TYPE NATRIURETIC PEPTIDE (test 161.0 PG/ML 0-100 H code = BNP) COMPREHENSIVE METABOLIC [id number] 04:13:00 Test Item Value Reference Range Interpretation [...] 20-125 N TOTAL (test code = ALKP) [id number] 04:13:00 Test Item Value Reference Range Interpretation Comments PHOSPHOROUS (test code = PHOS) 4.1 MG/DL 2.5-4.9 N [id number] 04:13:00 Test Item Value Reference Range Interpretation Comments MAGNESIUM (test code = MAG) 1.75 mg/dL 1.80-2.40 L CBC W/AUTO [id number] 03:57:00 Test Item Value Reference Range Interpretation [...] NO = MDIFF) COVID 19 Asymptomatic IH [id number] 15:22:00 Test Item Value Reference Range Interpretation [...] high or waivedcomplexit y tests. BASIC METABOLIC [id number] 05:37:00 Test Item Value Reference Range Interpretation [...] the recommended for lucretia for GFRby the [facility] Found[facility] on for Adults.The GFR will not calculate if th e sex is unknown or if thepatient's ag e is <18 years. CREATININE (test 4.4 mg/dL 0.6-1.3 H code = CREAT) CALCIUM (test code = 8.4 mg/dL 8.0-10.5 N CA) [id number] 05:37:00 Test Item Value Reference Range Interpretation Comments PHOSPHOROUS (test code = PHOS) 3.9 MG/DL 2.5-4.9 N [id number] 05:37:00 Test Item Value Reference Range Interpretation Comments MAGNESIUM (test code = MAG) 1.75 mg/dL 1.80-2.40 L CBC W/AUTO [id number] 05:25:00 Test Item Value Reference Range Interpretation [...] DIFF REQUIRED (test code NO = MDIFF) [id number] 10:01:00 Test Item Value Reference Range Interpretation Comments MAGNESIUM (test code = MAG) 2.07 mg/dL 1.80-2.40 ACUTE HEPATITIS [id number] 08:13:00 Test Item Value Reference Range Interpretation Comments AB HEPATITIS A IGM (test NON REACTIVE INDEX NON REACT. code = HAVMAB) AG HEPATITIS B SURFACE NON REACTIVE INDEX NonReactive (test code = HBSAG) AB HEPATITIS B CORE IGM NON REACTIVE INDEX NON REACT. (test code = HBCMAB) AB HEPATITIS C (test code NON REACTIVE INDEX NON REACT. = HCVAB) AB HEPATITIS B [id number] 08:13:00 Test Item Value Reference Range Interpretation Comments AB HEPATITIS B 3.7 mIU/mL See_Comment L Status of Im munity SURFACE (test code = Anti-HB s Level HBSAB) --- I nconsis tent with Immun ity 0.0 - 9.9Consistent with Immunity >9.9Performed A t: HD [facility] [address] [id number] terrance Anderson MD Ph:[phone] [Automated mess age] The system [email or web address] generated this result transmitted ref erence range: Immunity >9.9. The reference r shree was not used to interpret this result as normal/abnor mal. BASIC METABOLIC [id number] 05:34:00 Test Item Value Reference Range Interpretation [...] the recommended for lucretia for GFRby the [facility] Kidney Foundati on for Adults.The GFR will not calculate if th e sex is unknown or if thepatient's ag e is <18 years. CREATININE (test 5.4 mg/dL 0.6-1.3 H code = CREAT) CALCIUM (test code = 8.1 mg/dL 8.0-10.5 N CA) CBC W/AUTO [id number] 05:19:00 Test Item Value Reference Range Interpretation [...] (test code NO = MDIFF) BASIC METABOLIC [id number] 05:16:00 Test Item Value Reference Range Interpretation [...] code = 7.8 mg/dL 8.0-10.5 L CA) [id number] 05:16:00 Test Item Value Reference Range Interpretation Comments PHOSPHOROUS (test code = PHOS) 4.0 MG/DL 2.5-4.9 N [id number] 05:16:00 Test Item Value Reference Range Interpretation Comments MAGNESIUM (test code = MAG) 1.40 mg/dL 1.80-2.40 L CBC W/AUTO [id number] 05:09:00 Test Item Value Reference Range Interpretation [...] (test code NO = MDIFF) UR SODIUM [id number] 11:10:00 Test Item Value Reference Range Interpretation Comments UR SODIUM RANDOM 67 MEQ/L The Referen ce Range and (test code = SIMONE) Method Per formance specificationsh ave not been established for this fluid. The test result should be correlated into the clinical context forinte rpretation. UR PROTEIN [id number] 11:10:00 Test Item Value Reference Range Interpretation Comments UR PROTEIN RANDOM (test code = 129 mg/dL PROTU) UR CREATININE [id number] 11:10:00 Test Item Value Reference Range Interpretation Comments UR CREATININE 36.2 mg/dL The Reference Range and RANDOM (test code Method Per formance = CREATU) specificationsh ave not been establishe d for this fluid. The test resultshould be correlated into the clinical contex t forinterpretati on. UA RFLX MICR CULT IF [id number] 11:05:00 Test Item Value Reference Range Interpretation [...] Indication for culture: Flank PainSpecimen Description: CLEAN RSQCOVOBM3U% 2022-07-03 10:50:00 Test Item Value Reference Range Interpretation Comments HGBA1C% (test code = HGBA1C%) 4.8 %A1C 4.8-6.0 N LIPID PROFILE (CORONARY RISK)2022-07-03 08:08:00 Test Item Value Reference Range Interpretation Comments TRIGLYCERIDES (test 119 mg/dL 40-150 N code = TRIG) CHOLESTEROL (test 119 mg/dL <200 code = CHOL) CHOLESTEROL/HDL 5.00 RATIO 3.43-4.97 H RISK ASSOCIA GEORGI WITH RATIO (test code = CHOL/HDL RATIOS: [...] (test code = LDL) NEAR OPTIM AL/ABOVE [id number] UKYXIRCXPG304-9 89 HIGH>BW=940 ALIZA Y HIGH*Guidelines provided by the [facility] terol [employer] Adult Treatment Panel III THYROID STIMULATING [id number] 08:08:00 Test Item Value Reference Range Interpretation Comments THYROID STIMULATING 3.33 0.42-5.47 N Results in HORMONE (test code = TSH) mi lli-International Units/mL BASIC METABOLIC [id number] 08:08:00 Test Item Value Reference Range Interpretation [...] the recommended for lucretia for GFRby the [facility] Kidney Foundati on for Adults.The GFR will not calculate if th e sex is unknown or if thepatient's ag e is <18 years. CREATININE (test 7.3 mg/dL 0.6-1.3 H code = CREAT) CALCIUM (test code = 8.0 mg/dL 8.0-10.5 N CA) HGBA1C%2022-07-03 08:04:00 Test Item Value Reference Range Interpretation Comments HGBA1C% (test code = HGBA1C%) 5.2 %A1C 4.8-6.0 N CBC W/AUTO [id number] 07:17:00 Test Item Value Reference Range Interpretation [...] (test code NO = MDIFF) - RETROPERITONEAL [id number] 00:00:00 [facility] 1940 Sex: M Name: SHERRI ARCE [facility] : 1940 Age/S: 81 / M [address] [place] [address] Bl Unit #: [id number] Loc: [place] [address] Phys: Evelina Plaza MD Acct: [id number] Dis Date: Status: ADM IN PHONE #: [phone] Exam Date: 07/03/2022 1208 FAX #: [phone] Reason: claudette EXAMS: CPT CODE: [id number] US RETROPERITONEAL COM [id number] PROCEDURE INFORMATION: Exam: US Retroperitoneal; Complete; Kidneys and Bladder Exam date and time: 07/03/2022 11:22 AM Age: 81 years old Clinical indication: Other: Claudette TECHNIQUE:Imaging protocol: Real-time ultrasound of the retroperitoneum with image documentation. Complete exam focused on the kidneys and bladder. COMPARISON: CT CHEST W/O CONTRAST 06/28/2022 7:38 PM FINDINGS: Ga llbladder: The multiple echogenic foci with comet tail artifact at the gallbladder fundus, likely represent adenomyomatosis. This shadowing gallstone in the gallbladder. Right kidney: Measures 10.6 cm.There is severe right hydronephrosis with cortical thinning. Left kidney: Measures 14.6 cm.There is se kareem left hydronephrosis with cortical thinning. Intraperitoneal space: [...] MD; [place] DO Technologist: Goran Art Trnscb Date/Time: 07/03/2022 (1551) [email or web address] Orig Print D/T: S: 07/03/2022 (1552) Probe: PAGE 1 Signed Report- DUP EXTRACRANIAL [id number] 00:00:00 [facility] : 1940 Sex: M Name: SHERRI ARCE [facility] [place] : 1940 Age/S: 81 / M [address] [place] [address] Blvd Unit #: [id number] Loc: [place] [address] Phys: Gianna Hoover Acct: [id number] Dis Date: Status: ADM IN PHONE #: [phone] Exam Date: 07/03/2022 1208 FAX #: [phone] Reason: PRE CABG WORKUP EXAMS: CPT CODE: [id number] DUP EXTRACRANIAL WOJCIECH 05862 PROCEDURE INFORMATION: Exam: US Duplex Bilateral Extracranial Arteries, Carotid Arteries Exam date and time: 07/03/2022 11:14 AM Age: 81 years old Clinical indication: Screening exam; Additional info: Pre cabg workup TECHNIQUE: Imaging protocol: Real-time Duplex ultrasound scan of the bilateral carotid and vertebral arteries combining crocker scale, color Doppler and spectral waveform analysis. Bilateral exam. Exam focused on the carotid arteries. COMPARISON: CT CHESTW/O CONTRAST 06/28/2022 7:38 PM FINDINGS: Atherosclerotic plaques are present along both carotid bifurcations. Right common carotid artery: No occlusion or stenosis. Waveforms are normal. Right internalcarotid artery: No occlusion or stenosis. Waveforms are normal. Right ICA/CCA ratio: Within normal limits. Right external carotid artery: No stenosis in [...] 1 Signed Report (CONTINUED) Name: SH[facility] : 1940 Age/S: 81 / M [address] [place] [address] Unit #: [id number] Loc: [place] [address] Phys: Gianna Hoover Acct: [id number] Dis Date: Status: ADM IN PHONE #: [phone] Exam Date: 07/03/2022 1200 FAX #: [phone] Reason: PRE CABG WORKUP EXAMS: CPT CODE: [id number] DUP EXTRACRANIAL WOJCIECH 51469 (Continued) CC: [place] DO; Gianna LIZARRAGA Technologist: Goran Art [facility] Date/Time: 07/03/2022 (5175) [id number] Orig Print D/T: S: 07/03/2022 (0495) Probe: PAGE 2 Signed Report- CT CHEST W/O [id number] 00:00:00 [facility] : 1940 Sex: M Name: SHERRI [facility] : 1940 Age/S: 81 / M [address] [place] [address] Unit #: [id number] Loc: [place] [address] Phys: Gianna Hoover Acct: [id number] Dis Date: Status: ADM IN PHONE #: [phone] Exam Date: 07/03/2022 1227 FAX #: [phone] Reason: PRE CABG WORKUP EXAMS: CPT CODE:[id number] CT CHEST W/O CONTRAST 97757 PROCEDURE INFORMATION: Exam: CT Chest Without Contrast; Diagnos tic Exam date and time: 07/03/2022 11:54 AM Age: 81 years old Clinical indication: Other: Pre cabg workup TECHNIQUE: Imaging protocol: Diagnostic computed tomography of the chest without contrast. Radiation optimization: All CT scans at this facility use at least one of these dose optimization techniqu es: automated exposure control; mA and/or kV adjustment [...] bilateral pleural effusions with bibasilar atelectasis are noted.Heart: Small pericardial effusion is noted. Coronary arteries: [...] Boo M.D. CC: [place] DO; Gianna Hoover PATechnologist:Facundo Ervin, RT(R)(CT) CTDI: DLP: Trnscb Date/Time: 07/03/2022 (1313) [email or web address] Orig Print D/T: S: 07/03/2022 (7173) PAGE 1 Signed Report- KORINA VIDAL [id number] 00:00:00 [facility] : 1940 Sex: M Name: SHERRI ARCE [facility] Pedro David : 1940 Age/S: 81 / M [address] [place] [address] Unit #: [id number] Loc: [place] [address] Phys: Gianna Hoover Acct: [id number] Dis Date: Status: ADM IN PHONE #: [phone] Exam Date: 07/03/20221206 FAX #: [phone] Reason: VEIN MAPPING AND R/O DVT EXAMS: CPT CODE: [id number] DUP VEIN WOJCIECH 07549 PROCEDURE INFORMATION: Exam: US Duplex Lower Extremity Veins; Ve in mapping Exam date and time: 07/03/2022 11:32 AM Age: 81 years old Clinical indication: Screening exam; Pre op; Additional info: Vein mapping and R/O dvt TECHNIQUE: Imaging protocol: Real-time duplex ultrasound of the extremities with 2-D crocker scale, color Doppler flow and spectral waveform analysis including responses to compression and other maneuvers (when performed) with image documentation. Complete exam focused on the bilateral lower extremity veins for vein mapping. COMPARISON: No relevant prior studies available. FINDINGS: Right superficial veins: The right greater saphenous vein measures 0.24 [...] 0.19 mm in the distal calf. Soft tis sues: Unremarkable. IMPRESSION: 1. The right greater saphenous [...] 0.23 mm in the upper calf, 0.24 mmin the mid calf, and 0.19 mm in the distal calf. at 1326 Reported and signed by: Arely Brown M.D. CC: [place] DO; Gianna LIZARRAGA Technologist: Goran Art Trnwib Date/Time: 07/03/2022 (1325) [email or web address] Orig Print D/T: S: 07/03/2022 (132) Probe: PAGE 1 Signed Report- XR CHEST 1 [id number] 00:00:00 [facility] : 1940 Sex: M FAX: Los Maldonado [phone] [place]: St: [facility] FAX: Sarbjit Sherman [phone] Name: SHERRI ARCE [facility] : 1940 Age/S: 81/M [address] [place] [address] Unit #: [id number] Loc: [place] [address] Phys: Sarbjit Mcarthur MD Acct: [id number] Dis Date: Status: ADM IN PHONE #: [phone] ExamDate: 07/02/20222144 FAX #: [phone] Reason: pre-op,cabg EXAMS: CPT CODE: [id number] XR CHEST 1 V [id number] PROCEDURE INFORMATION: Exam: XR Chest Exam date [...] Crawford DO; Sarbjit Mcarthur MD Technologist: RT Mary(R) Trnscrd Date/Time/By: 07/03/2022 (307) : By: [email or web address] Orig Print D/T: S: 07/03/2022 (307) PAGE 1 Signed Report Notes Date/Time Note Provider Source 2022-07-28 19:10:00-00:00 [facility] Nephrology Progress Note REPORT#:[id number] REPORT STATUS: Signed DATE:07/28/22 TIME: 1909 PATIENT: SHERRI ARCE UNIT #: [id number] ROOM/BED: [facility] : 42 AGE: 81 SEX: M ATTEND: Srinath Kaur MD ADM AUTHOR: Evelina Plaza MD * ALL edits or amendments must be made on the [email or web address] document * Subjective Chief complaint: Seen after dialysis. Objective General VS/I O: Vital Signs: Date Time Temp Pulse Resp B/P B/P Pulse O2 O2 F low FiO2 Mean Ox Delivery Rate 07/28 1540 98.2 85 18 125/67 86.1 94 Room air 07/28 1348 98.1 82 18 127/67 97 Room air 07/28 1043 98.0 81 16 102/54 94 Room air 07/28 1000 94 Room air 07/28 0522 98.8 83 18 110/64 79.6 94 07/28 0352 95 Room air 07/28 0119 98.4 84 16 115/56 76.0 94 07/28 0026 98 Room air 07/27 2121 98.6 81 17 122/63 82.4 94 07/27 1958 95 Room air 24 hour I O ending at 0700: 07/28 0700 07/27 1900 Intake Total 1350 Output Total 2200 Balance -850 Intake, Oral 1350 Output, Urine 2200 Patient 93.1 kg Weight Weight Standing scale Measurement Method PATIENT WEIGHT: Weight (lb): 205 Weight (oz): 4.01 Weight (kg): 93.100 Medications Active Meds + DC'd Last 24 Hrs Midodrine (PROAMATINE) 5 MG 0900,1300,1700 PRN P O (DCD) Sodium Chloride (SODIUM CHLORIDE) 10 ML ASDIR IV (DCD) Amiodarone HCl (CORDARONE) 200 MG BID PO (DCD) Ipratropium Kersey (ATROVENT) 500 MCG RTQ2H PRN PRN INH (DCD) Lactulose (LACTULOSE) 20 GM DAILY PRN PRN PO (D CD) Cyanocobalamin (Vitamin B-12 500 mcg tab) 500 MC G DAILY PO (DCD) Ferrous Sulfate (FERROUS SULFATE) 325 MG DAILY P O (DCD) Bisacodyl (DULCOLAX) 10 MG ONCE PRN RECTAL (DCD) Atorvastatin Calcium (LIPITOR) 40 MG 2100 PO (DC D) Clopidogrel Bisulfate (Plavix) 75 MG DAILY PO (D CD) Polyethylene Glycol (MIRALAX) 17 GM DAILY PO (DC D) Pantoprazole (PROTONIX) 40 MG DAILY@0600 PO (DCD ) Aspirin (ASPIRIN) 81 MG DAILY PO (DCD) Docusate Sodium (COLACE) 100 MG BID PO (DCD) Sennosides (Senna Lax 8.6 MG TABLET) 17.2 MG BED TIME PO (DCD) Ipratropium Kersey (ATROVENT) 500 MCG RTQ4H INH (DCD) Acetaminophen (TYLENOL) 650 MG Q4H PRN PRN PO (D CD) Acetaminophen (TYLENOL) 650 MG Q4H PRN PRN RECTA L (DCD) Dextrose/Water (DEXTROSE 10% IN WATER) 125 ML DIR PRN IV (DCD) Dextrose/Water (DEXTROSE 10% IN WATER) 250 ML DIR PRN IV (DCD) Glucagon (GLUCAGON) 1 MG ASDIR PRN IM (DCD) Magnesium Sulfate (MAGNESIUM SULFATE 4GM/SWFI 10 0ML) 100 ML ASDIR PRN IV (DCD) Magnesium Sulfate (MAGNESIUM SULFATE 2GM/SWFI 50 ML) 50 ML ASDIR PRN IV ( DCD) Magnesium Sulfate/Dextrose (MAGNESIUM SULFATE 1G M/D5W 100ML) 100 ML ASDIR PRN IV (DCD) Ondansetron HCl (ZOFRAN) 4 MG Q6H PRN PRN IV (DC D) Albumin Human (ALBUMINAR-25%) 12.5 GM ASDIR PRN IV (DCD) Heparin Sodium (Porcine) (HEPARIN SODIUM) 3,000 UNIT ASDIR PRN DIALYSIS (DCD) Lidocaine HCl (LIDOCAINE HCL/PF) 0.5 ML ASDIR NV N I-DERMAL (DCD) Mannitol (Mannitol 20%) 12.5 GM ASDIR PRN IV (DC D) Sodium Chloride (SODIUM CHLORIDE 0.9%) 2,000 ML ASDIR PRN IV (DCD) Tamsulosin HCl (Flomax 0.4 mg) 0.4 MG BEDTIME PO (DCD) Physical Exam General appearance: alert, awake Head/eyes: atraumatic, normocephalic ENT: moist mucous membranes, normal nose Neck: non-tender, no JVD Cardiovascular: regular rate and rhythm Respiratory: clear to auscultation Abdomen: non-tender, soft Genitourinary: no bladder distention Extremities: no edema, no swelling 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ALTH: alert, oriented X 3, normal speech Skin: dry, intact Results Findings/Data: Laboratory Tests 07/28 07/28 0430 0430 Chemistry Sodium (134 - 147 mEq/L) 139 Potassium (3.4 - 5.0 mEq/L) 4.7 Chloride (100 - 108 mEq/L) 107 Carbon Dioxide (21 - 33 mEq/l) 23 Anion Gap (0 - 20) 13 BUN (7 - 18 mg/dL) 48 H Creatinine (0.6 - 1.3 mg/dL) 4.3 H Glomerular Filtr Rate (70 - 80) 13.3 L Glucose (70 - 110 mg/dL) 90 Calcium (8.0 - 10.5 mg/dL) 8.6 Magnesium (1.80 - 2.40 mg/dL) 1.91 Laboratory Tests 07/28 0430 Hematology WBC (4.5 - 11.0 x10 3/uL) 10.5 RBC (4.00 - 5.60 x10 6/uL) 2.79 L Hgb (12.5 - 16.9 g/dL) 8.1 L Hct (37.5 - 50.7 %) 26.4 L MCV (81.0 - 99.0 fL) 94.6 MCH (27.0 - 33.0 pg) 29.0 MCHC (33.0 - 37.0 g/dL) 30.7 L RDW (11.5 - 14.5 %) 16.1 H Plt Count (150 - 400 x10 3/uL) 308 MPV (7.0 - 9.0 fL) 10.5 H Neut % (Auto) (56.0 - 77.0 %) 66.9 Lymph % (Auto) (14.0 - 32.0 %) 13.8 L [place] % (Auto) (4.8 - 9.0 %) 7.9 Eos % (Auto) (0.3 - 3.7 %) 9.8 H Baso % (Auto) (0.0 - 2.0 %) 0.9 Neut # (Auto) (2.0 - 7.6 x10 3/uL) 7.05 Lymph # (Auto) (1.0 - 3.8 x10 3/uL) 1.45 [place] # (Auto) (0.1 - 0.8 x10 3/uL) 0.83 H Eos # (Auto) (0.0 - 0.2 x10 3/uL) 1.03 H Baso # (Auto) (0.0 - 0.2 x10 3/uL) 0.09 Abs Immat Gran (auto) (0.00 - 0.03 x10 3/uL) 0. 07 H Add Manual Diff NO Immature Gran % (0.0 - 2.0 %) 0.7 Nucleated RBC % (0 - 0 %) 0.0 Nucleated RBCs # (Man) (0.0 - 0.1 x10 3/uL) 0.0 0 Treatment Prophylaxis Treatment Prophylaxis Drain(s)/tube(s): Drain(s)/tube(s): chest Diagnosis, Assessment Plan Free Text A P: Assessment: 1-CLAUDETTE likely from urinary retention with underlying CKD. oliguric CLAUDETTE now post op, and shock. Cr cl 7 ml/min. New ESRD. 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 3- BPH. Waters catheter is in place. 4- severe bilateral hydronephrosis. 5- shock : Cardiogenic resolved. 6- hyperlipidemia. 7- AGMA resolved. Plan: - HD MWF here. HD today before discharge. - Still has excellent urine output volume. - Ultrasound showed severe bilateral hyd ronephrosis and medical renal disease. Urology seen and recommended Waters catheter when discharged home with Flomax, and outpatient follow-up. - He underwent LHC on 07/03. - Started on HD on 07/04. - s/p CABG X5 on 07/08 - TDC placed 07/15. - cr cl 7 ml/min. - discussed with CM. chacon to d/c home after HD T . next HD on . Consultants: cardiology, cardiovascular surgery, nephrology Electronically Signed by Evelina Plaza MD on at 1935 RPT #:[id number] END OF REPORT 2022-07-28 18:05:00-00:00 [id number] [place] [id number] PATIENT NAME: SHERRI ARCE ADMIT DATE: 07/02/22 ACCOUNT NO: [id number] ROOM NO: .[facility]ly [facility] AGE: 81 REPORT TYPE: eECHOCARDIOGRAM REPORT SEX: M ADMITTING PHYSICIAN:Jesus Larson MD ATTENDING PHYSICIAN:Srinath Kaur MD *[address] [address] Limited Transthoracic Echocardiogram Patient: Sherri Arce Study Date: 07/28/2022 BP: 127 / 67 Location: [facility] URN: [id number] : 1940 Age: 81 Height: 72 in / 182.9 cm Gender: M Weight: 204 .6 lb / 93 kg BMI/BSA: 27.8 kg/m 2 / 2.15 m 2 *Ordering Physician: * Liset Ennis MD *Interpreting Physician: * Liset Ennis MD *Computational Sciences Professor: * Ayanna Cruz Indications: EVAL EF. Study data: Transthoracic echocardiogram, limite d study. Procedure: Transthoracic echocardiography was performed. Im age quality was adequate. Limited 2D and limited spectral Dopple r. Location: Bedside. Patient status: Inpatient. Patient room number: 3354. Study status: CHELSEY. Findings Left ventricle: The cavity size is normal. Wall thickness is normal. Systolic function is moderately to severely redu molly. The estimated ejection fraction is 35-39%. Right ventricle: Not well visualized. Systolic f unction is mildly reduced. Left atrium: The atrium is mildly dilated. PATIENT NAME: SHERRI ARCE 7 Right atrium: The atrium is normal in size. Pericardium: A trivial pericardial effusion is i dentified. Measurements Left ventricle Value 07/18/2022 Ref AARTI, LAX 5.2 cm 5.0 4.2 - 5.8 ESD, LAX 4.2 cm 4.4 2.5 - 4.0 ESD/bsa, 1.9 cm/m 2 2.1 1.3 - 2.1 LAX FS, LAX 20 % 14 25 - 43 ESD/bsa 3.7 cm/m 2 3.9 --------- major ax, A4C AARTI/bsa 3.7 cm/m 2 3.9 --------- minor ax, A4C AARTI major 8.8 cm 9.1 --------- ax, A2C AARTI/bsa 4.1 cm/m 2 4.3 --------- major ax, A2C PW, ED 1.0 cm 1.2 0.6 - 1.0 IVS/PW, ED 0.97 0.98 --------- EF 41 % 29 52 - 72 Ventricular septum Value 07/18/2022 Ref IVS, ED 1.0 cm 1.2 0.6 - 1.0 Right ventricle Value 07/18/2022 Ref AARTI, LAX 3.1 cm 2.5 --------- Left atrium Value 07/18/2022 Ref Vol/bsa, 25 ml/m 2 26 12 - 37 ES, 1-p A4C Vol, ES, 77 ml 78 --------- 2-p Vol/bsa, 36 ml/m 2 37 16 - 34 ES, 2-p Vol/bsa, 27 ml/m 2 30 16 - 34 ES, A/L AP dim, ES 3.7 cm 4.1 3.0 - 4.0 MM LA/Ao root 1.14 1.25 --------- ratio, MM Aortic valve Value 07/18/2022 Ref Leaflet 1.88 cm 1.96 --------- sep, MM Aortic root Value 07/18/2022 Ref Root diam, 3.25 cm 3.31 --------- PATIENT NAME: SHERRI ARCE ED MM Conclusions Summary: 1. Left ventricle: The cavity size is normal. Wa ll thickness is normal. Systolic function is moderately to severely red uced. The estimated ejection fraction is 35-39%. 2. Right ventricle: Systolic function is mildly reduced. 3. Left atrium: The atrium is mildly dilated. 4. Pericardium, extracardiac: A trivial pericard ial effusion is identified. Prepared and electronically signed by Liset Ennis MD 07/28/2022 18:05 Electronically Signed by Liset Ennis MD on 0 07/28/22 at 1805 PATIENT NAME: SHERRI ARCE 2022-07-28 13:30:00-00:00 [facility] REPORT#:[id number] REPORT STATUS: Signed DATE:07/28/22 TIME: 1330 PATIENT: SHERRI ARCE UNIT #: [id number] ROOM/BED: [place] [address] : 42 AGE: 81 SEX: M ATTEND: Srinath Kaur MD ADM AUTHOR: Gianna Hoover * ALL edits or amendments must be made on the el [employer]/computer document * General Post-op: day 19 Status post: 07/08/22 CABG x 5 (MISTRY-LAD, SVG-Ladonna, SVG-OM1< SVG-OM3, SVG-PDA) ALAA EVH (RGSV) Subjective Chief complaint: s/p CABG no complaints Review of Systems Constitutional: Denies: chills, fever, malaise. Allergy/Immun: Denies: allergic reaction. Respiratory: Denies: SOB. Cardiovascular: Denies: chest pain, palpitations. GI: Denies: abdominal pain, nausea, vomiting. : Denies: dysuria, hematuria. Heme: Denies: bleeding. Neuro: Denies: dizziness, headache, vision change. All systems rev neg: except as marked Objective General VS/I O Last Documented: Result Date Time Pulse Ox 94 07/28 1043 B/P 102/54 07/28 1043 O2 Delivery Room air 07/28 1043 Temp 98.0 07/28 1043 Pulse 81 07/28 1043 Resp 16 07/28 1043 B/P Mean 79.6 07/28 0522 FiO2 21 07/27 0545 O2 Flow Rate 3 07/14 1151 24 hour I O ending at 0700: 07/28 0700 07/27 1900 Intake Total 1350 Output Total 2200 Balance -850 Intake, Oral 1350 Output, Urine 2200 Patient 93.1 kg Weight Weight Standing scale Measurement Method PATIENT WEIGHT: Weight (lb): 205 Weight (oz): 4.01 Weight (kg): 93.100 Physical Exam General appearance: alert, awake Wound/incision: Location: sternal Site condition: edges approximated, incision in tact, no drainage, no ecchymosis, no erythema HEENT: anicteric, mucosal membranes moist Neck: supple/no meningismus Cardiovascular: normal heart sounds, regular rat e rhythm Respiratory: aerating well, symmetric expansion, no distress Abdomen: soft, non-tender, no distention Genitourinary: waters Extremities: moves all 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ALTH: alert, oriented X 3, normal speech, n o motor deficits Psychiatry: normal affect, normal mood Treatment Prophylaxis Treatment Prophylaxis Drain(s)/tube(s): Drain(s)/tube(s): chest Quality: Trauma Gen Surg Advanced Care Plan 65 or Older Discussed with: patient, CARD LAUNDRY ASSISTANT (SONYA) Discussion included: living will (none), power of employment law attorney (none), code status ( full code) VTE Prophylaxis - General VTE prophylaxis initiated: yes Diagnosis, Assessment Plan Hospital course to date: This is a 81-year-old gentleman who presented to an outside hospital with complaints of chest pains while walking at his home on Thursday. He denies any previous history of coronary artery disease or o ther NE. He was seen and evaluated at [facility]. He was found to have a urinary tract infection with urinary retention and acute kidne y. He was started on dialysis via a left femoral temporary catheter. He underw ent dialysis on Thursday, Thursday. Renal has been consulted During his work-up at outside hospital he underw ent Left heart catheterization showing sever e Left Main 70%. LAD: Proximal diffuse 80% stenosis and then diffuse 60% in the midsegment and on the distal segment, there is focal 70% stenosis. Diagonal branches w ith luminal irregularities. Left circumflex, codominant circulation with pro ximal 80%, mid 80 to 90% and then in the OM, there is proximal 60%, distal le ft circumflex has a 70% stenosis. RCA large and dominant with proximal 4 0% stenosis, mid 60% stenosis and then diffuse 50% stenosi s all the way distally and the PLV and the PDA with luminal irregularities. CV surgery consulted for evaluation for coronary bypass graft. CAROTIDS - No carotid stenosis CT chest complete IMPRESSION: Small bilateral pleural effusions with bibasila r atelectasis. Echo: 1. Left ventricle: The cavity size is at the upp er limits of normal. Wall thickness is mildly increased. Systolic fu nction is severely reduced. The estimated ejection fraction is 30- 34%. Moderate hypokinesis of the entire myocardium. Doppler p arameters are consistent with abnormal left ventricular relax ation (grade 1 diastolic dysfunction). 2. Pericardium, extracardiac: A small pericardia l effusion is identified along the left ventricular free wall, along the right ventricular free wall, and along the right atrial free wall . Assessment/Plan 1) CAD Mutlivessel Will obtain echo,carotids. 2) CLAUDETTE Started dialysis on Creatine 7.3 Renal consulted. 3) BPH- Urinary retention. Waters in place Workup for CABG underway. Will get functional assessment with PT. PFT pending Carotid dopplers- No disease Echo Pending Dialyiss per Renal. Baseline Cr unknown. 07/04 07/04 Doing well today, alert, up in the chair. Denies chest pain Echocardiogram showed LVEF 30 to 34%, mild MR, t rivial TR CT chest images reviewed Encourage I-S and mobilization Creatinine 5.5 from 7.3, good urine output. Pao l US showed bilateral severe hydronephrosis. Plan for HD today and tomorrow Will tentatively schedule patient for surgery on Thursday. Patient seen and plan reviewed with Dr Schwarz 07/05 Remains in a stable condition, denies chest pain BUN 53, creatinine 5.4. Plan for hemodia lysis today and tomorrow for clearance He is also on Lasix 20 mg IV twice daily, urine output 1.1 L overnight We will calculate risk of surgery with STS score Encourage I-S and mobilization Will tentatively schedule patient for surgery on Thursday. Pt seen and plan reviewed with Dr Schwarz 07/06 BUN 36, creatinine 4.4. Plan for hemodialysis to day Awaiting CABG tomorrow Surgery, risks involved, STS score, benefits, co mplications and alternatives were explained to the patient. He acknow ledged understanding and is willing to proceed N.p.o. after midnight Patient seen and plan reviewed with Dr. Schwarz 07/09/22 POD 1 CABG x 5 (MISTRY-LAD, SVG-Ladonna, SVG-OM1< SVG-OM3, S VG-PDA), ALAA, EVH (RGSV) Patient hemodynamically unstable, on epi at 4, a nd vaso .04, decreased uop overnight- 150cc Started patient on CRRT 2k/3.5 Wean epi as tolerated, Cardiac incex 2.8-3 labs and chest x-ray reviewed, electroly marcie stable, hgb 6.5- transfuse 2 units PRBC On 4l nasal cannula- encourage incentive spirome ter and deep breathing Keep both chest tubes and monitor outputs Glycemic control on insulin drip Cardiac diet Bowel regimen protocol Pain management SCDs for DVT and PPI for GI prophylaxis PT/OT Monitor patient closely in CVICU Plan of care discussed with Dr. Schwarz 07/10/22 POD 2 Patient alert, awake, and oriented, no distres n oted labs and CXR reviewed stable Breathing comfortably on 3l nasal cannula- wean as tolerated to melissa O2 sats > 92 % Encourage I-S use and deep breathing On CRRT- able to remove 2.9L overnight- nephrolo gy following Cardiac index 3.1- wean off epi drip Keep chest tubes for now and monitor outputs Transition to sliding scale insulin- cardiac t Try to get patient out of bed to chair today- am bulate with PT/OT SCDs for DVT prophylaxis Keep patient in CVICU for close monitoring 07/11/22 POD 3 Patient in stable condition, overnight e vents noted- decreased urine output 35 ml last night-started on dopamine gtt for renal perfusion Cardiac index 3.5- epi currently at 2- will disc ontinue today, vasopressin at 0.02, added low dose midodrine 2.5 mg TID, repea t echocardiogram. Renal Following- trial Lasix Patient has Left femoral tem p dialysis cath, Will need tunneled dialysis IJ cath placed if need dialysis. On 5l nasal cannula- wean off as tolerat ed, encourage incentive spirometer and deep breathing Keep left pleural chest tube and monitor output- > 200 cc Tolerating diet, bowel regimen protocol PT/OT- patient out of bed to chair today- encour age ambulation DVT prophylaxis with SCDs Monitor patient closely in CVICU Plan discussed with multidisciplinary team Plan discussed with Dr Schwarz/ Dr Rodríguez 07/12/22 POD 5, Patient resting comfortable. Patient with hx of urinary r etention- After standing today- voided 1.4 L. Needs Urology consult for retention K 5.4- HD in progress. Dr Plaza following. CT output 20- DC today. Pacers remain in place. Patient has Left femoral tem p dialysis cath, Re-evaluate on Thursday if skilled nursing dialysis needed. Card: Remains in sinus rhythm. Respir: on 7 L NC O2 95% Dispo: Rehab consulted Patient seen and exmained by Dr Rodríguez. Plan discussed with Team 07/13/22 POD 5 Patient with no new complaints. Recieved HD yest erday. Requiring less oxygen, now on 3l nasal cannula- continue to wean off CXR reviewed left apical pne umothorax 4cm/30%, Chest tube drained 140 overnight, placed back on suction to clear pneumo, CT drtomed 200cc th is AM. on suction. Labs reviewed- stable, decreased WBC, hgb stable , CR 3.9 Eating welll, +BM UO- 550CC, BP improved on midodrine. Continue PT/OT, ambulation and incentive spirome ter use Rehab folowing Monitor in ICU today Disucssed with Dr Schwarz- Adeola C femoral line and Central line today. DC art line. Will re-eval need for dialysis cath Thursday. Cons ider tunnelled cath if need. Patient seen and examined by Dr Rodríguez. Plan discussed with Care team. 07/14 POD 6 Patient in stable condition, no distress noted Remains on room air, O2 sats > 92%, encourage I- S use and deep breathing CXR shows moderate left apical pneumothorax unch anged CT remained on suction, no airleak no Consult IR for pigtail chest tube placement this morning Cardiac/renal diet Labs reviewed- K 5.1- repeat labs K 4.8 Nephrology following Continue therapy with PT/OT Follow up with urology for waters catheter- Dr Hunter carrera consulted. Monitor in CVICU Plan of care discussed with Dr Schwarz and multi disciplinary team 07/15/22 POD 7 Patient alert, awake, and oriented, no distress, no complaints at this time Breathing comfortable on room air CXR shows resolved pneumothorax LP and pigtail chest tube- no air leak noted, mi nimal output from LP 40 overnight Labs reviewed, K 5.2- corrected, follow up with nephrology to discuss need for dialysis Trend labs this afternoon Bowel regimen, +gas Waters catheter discontinued per urology- voiding trial this AM Ambulation and incentive spirometer use encourag ed DVT prophylaxis with SCDs Keep in ICU DISP: SNF- Case management Discussed plan of care with multidisciplinary te am and Dr. Schwarz 07/16/2022 POD 8 Patient doing well, alert, awake, and oriented O2 sats 93% on room air, encourage I-S CXR stable- no pneumo noted Left pigtail chest tube - no air leak, clamped t his morning, repeat CXR Placement of tunneled dialysis catheter (BioFlo DuraMax 28 cm) yesterday HD treatment done yesterday evening, plan for HD treatment today per nephrology Patient failed voiding trial, waters catheter rep laced- follow up with urology Eating well Continue PT/OT- ambulation Transfer to CV 1 intermediate care unit Discharge planning for SNF- following and to set up dialysis chair Patient seen with Dr. Allie louis and discussed plan of care with multidisciplinary team. 07/17/22 Patient in stable condition, no complaints Labs and CXR reviewed- stable Left pigtail chest tube discontinued yesterday- no pneumo noted Remains on room air, no distress- I-S encouraged Cardiac diet, +BM Keep waters per urology f/u outpt, continue floma x HD per nephrology- CM to setup outpt dialysis ch air Awaiting bed availability on CV 1 Discharge planning- SNF Plan of care discussed with multidisciplinary david portillo and Dr. Schwarz. 07/18 Patient in stable condition, no complaints Remains on room air, no distress- I-S encouraged Epicardial pacing wires discontinued. Limited ec ho to rule out pericardial effusion Keep waters per urology f/u outpt, continue floma x HD per nephrology- CM to setup outpt dialysis ch air Discharge planning- SNF Plan of care discussed with multidisciplinary david portillo and Dr. Schwarz. 07/19 No new events Echocardiogram done, report pending HD per nephrology- to setup outpt dialysis ch air [facility] Patient seen and plan reviewed with Dr. Schwarz 07/20 Remains in a stable condition. Echocardiogram showed LVEF 30 to 34%, trivial pe ricardial effusion HD schedule per nephrology Awaiting insurance approval for SNF 07/21 No complaints today HD schedule per nephrology Awaiting insurance approval for SNF Encourage I-S and mobilization 07/22 Remains in stable condition Continue current management. Aspirin, Plavix, statin. Did not tolerate metoprolol, on midodrine 5 mg 3 times daily WBCs trending down Awaiting insurance approval for SNF 07/23 No new events Hemodialysis this mornning Hemodynamically stable, sinus rhythm 80s Awaiting placement 07/24 Doing well today No changes in sternal incision Sternal precautions for 6 weeks Awaiting placement 07/25/22 Doing well. Denies CP Dialysis today. Sternum clean dry Labs reveiwed. Life vest ordered. EF 30%- 35% Awaiting placement 07/26/22 Doing well, CT sutures removed. Respir: on Room air 98% Cardiac: remains sinus rhtyhm Life vest at bedside. Awaiting transfer to facility. Labs reviewed. CXR reviewed- stable. encouraghe IS- Deep breathing Out of bed with PT 07/27/22 Doing well. No complaints. Wound clean, Dry. Respir: 99% on room air. Life vest at bedside, Contnue dialysis- Awaiting transfer to [facility]. Stable. Patient seen and examined by Dr Schwarz 07/28/22 Patient restign comfortable. Wounds clean and dry. Sutures are out., Breathing on rroom air 99% Per Case management- denied Patient with family to come pick him up today Okay to NH home with Family support. Consultants: cardiology, cardiovascular surgery, nephrology Electronically Signed by Gianna Hoover on 0 07/28/22 at 1335 at 1001 RPT #:[id number] END OF REPORT 2022-07-28 12:32:00-00:00 [facility]ACL [facility] ([facility]) Hospitalist Discharge Summary REPORT#:[id number] REPORT STATUS: Signed DATE:07/28/22 TIME: 1232 PATIENT: SHERRI ARCE UNIT #: [id number] ROOM/BED: 3354-1 : 42 AGE: 81 SEX: M ATTEND: Srinath Kaur MD ADM AUTHOR: Srinath Kaur MD * ALL edits or amendments must be made on the el [employer]/computer document * General Information Free Text General Notes Free Text General Notes: ON DIALYSIS AT NOW, HE'S READY TO GO HOME WIT H HH AND ALREADY HAD DIALYSIS SETUP IN [place]. I SPO KE TO SONYA (LAUNDRY ASSISTANT FOR DR. ENNIS) AND PEDRO TO GO HOME WITH [employer] WHICH HE SAYS HE MAY NOT WEAR IT. Date of admission: Observation Start Date: Date of admission: 07/02/22 Discharge date: 07/28/22 Discharge diagnosis: SEE BELOW. Hospital course: 81 WM WITH BPH, GOITER, HTN, ADMITTED WITH ACUTE SYSTOLIC CHF EXAC, AND ARF DUE TO POST-OBSTRUCTIVE NEPHROPATHY, NOW REQUIRING H EMODIALYSIS WHICH IS ALREADY SETUP OUTPATIENT. HE WAS TREATED FOR CHF AND HAD A CAHT WITH 3-V CAD AND TRANSFERRED FROM [facility] FOR CABG X5 BY CTS. SEEN BY RENAL/CARD/REHAB/ICC, AND RECOVERED WELL AND IS ABLE TO RETURN HOME WI TH . Consultants: cardiology, cardiovascular surgery, nephrology Pt. condition on discharge: improved, stable Free Text DxA P Notes Free text DxA P notes: NSTEMI, CAD (coronary artery disease), S/P CABG X 5 ON 07/08- STABLE, CARD/CTS SEEN, ECHO EF 30-35%, HAS L[facility] AT , D/C HO ME SINCE DOING WELL WITH HH. patient presented with NSTEMI and found to hve severe CAD. Cardiac cath shows: Left Main - Distal 70% LAD - Proximal 80% with another 60% and 70% les sions Cir - Proximal 80%,mid 80-90%, Distal 70% and O M 60% RCA - large dominant with proximal 40%, Mid 60% . Echo: ef 30-34%, mod hypokinesis of entire myoc ardium, grade 1 diastolic dysfunction Patient on ASA, plavix, BB and Statin on amiodarone, Beta-tomas as tolerated for lo w BP, Acute systolic heart failure - STABLE, NO CHARLY/BB DUE TO LOW BP, ON MIDODRINE PRN , EF 30-35%, REPEAT ECHO PENDING Echocardiac with estimated LVEF of 30 to 34% wi th grade 1 diastolic dysfunction -s/p Lasix 20 mg twice daily 07/05 -on metoprolol 12.5 mg bid on hold now, BP low -no ACEI/ spironolactione for CLAUDETTE -Start GDMT prior to discharge -Await LifeVest 07/22 - LIFEVEST at bedside. CLAUDETTE (acute kidney injury) DUE TO POST-OBS NEPHRO REMY - ON HD MWF, RENAL/UROL SEEN, CONT WATERS, FLOMAX, CAP SEWER FROM 7.0 TO 4.3, H O/P DIALYSIS CHAIR SETUP ALREADY IN [place]. No prior Hx of renal disease. hx of BPH and casimiro ated with Fosamax w/o improvement nd continue to h ave difficulty urinating. On admission was found to be on acute renal filaure and had received HD tw ice prior to arrival here ( thursday and thursday). 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 BPH (benign prostatic hyperplasia) - ABOVE, O N WATERS Started on Flomax at the previous hospital, thais l continue with it. Waters catheter in place, continue Waters cathete r as per nephrology 07/05 Goiter Hx of Goiter and surgical resection. TSH 3.33, within normal limits. Patient is not on Thyroid medication. RXT LEUKOCYTOSIS - STABLE, NO INFECTION DEBILITY - OT/PT SEEN, SNF TX SOON UTI continue Rocephin for empiric treatment pend ing results of urine culture No growth for 48 hours DVT prophylaxis: Heparin 5000 units every 8 hour s Diet: Cardiac diet CODE STATUS: Full code Disposition: Status post CABG x5 on 07/09, hemodia lysis as per nephrology. Worked with PT in his room, on 2 L oxygen via na cj cannula. PT/OT on board. Await LifeVest and SNF placement 07/22- awaiting SNF. lifevest arranged. 07/23 stable, awaiting SNF placement 07/24- awaiting SNF 07/25 awaiting SNF, discussed with case managemen t 07/26 - awaiting SNF 07/27 - PERHAPS PM R TO REASS ESS and see if home with H/H is now an option since he has been in the hospital for so long, getting PT here. Med Rec Med Rec Discharge meds: Stop taking the following medications: ATORVASTATIN (LIPITOR) 20 MG TAB 20 MILLIGRAM ORAL DAILY. METOPROLOL TARTRATE (LOPRESSOR) 25 MG TAB 12.5 MILLIGRAM ORAL TWICE DAILY. cefTRIAXone (ROCEPHIN) 1 GRAM/50 ML PIGGYBACK 1 GRAM INTRAVENOUS EVERY 24 HOURS. VANCOMYCIN/D5W (VANCOCIN/D5W) 1 GRAM/250 ML ISABEL YBACK 1 GRAM INTRAVENOUS DIALYSIS - DOSE DURING. ONDANSETRON (ONDANSETRON) 4 MG/2 ML VIAL 4 MILLIGRAM INTRAVENOUS EVERY 6 HOURS NEEDED . as needed for NAUSEA AND VOMITING Continue taking these medications: ASPIRIN (ASPIRIN) 81 MG TAB.CHEW 81 MILLIGRAM ORAL DAILY. TAMSULOSIN ER (FLOMAX) 0.4 MG CAP.SR.24H 0.4 MILLIGRAM ORAL BEDTIME. Days = 30 Qty = 30 This prescription has been renewed Start taking the following new medications: CLOPIDOGREL (PLAVIX) 75 MG TAB 75 MILLIGRAM ORAL DAILY. Days = 30 Qty = 30 Refills = 3 FERROUS SULFATE (FEOSOL) 325 MG (65 MG IRON) TAB 325 MILLIGRAM ORAL DAILY. Days = 30 Qty = 30 Refills = 3 AMIODARONE (PACERONE) 200 MG TAB 200 MILLIGRAM ORAL TWICE DAILY. Days = 30 Qty = 60 Refills = 3 ATORVASTATIN (LIPITOR) 40 MG TAB 40 MILLIGRAM ORAL 2100 Days = 30 Qty = 30 Refills = 3 CYANOCOBALAMIN (VITAMIN B-12) 500 MCG TAB 500 MICROGRAM ORAL DAILY. Days = 30 Qty = 30 Refills = 3 The following medications have been changed: Old: ACETAMINOPHEN (TYLENOL) 325 MG TAB 650 MILLIGRAM ORAL EVERY 6 HOURS NEEDED. as needed for PAIN SCALE 1-3/ TEMP ABOVE 100F New: ACETAMINOPHEN (TYLENOL) 325 MG TAB 650 MILLIGRAM ORAL EVERY 6 HOURS NEEDED. as needed for PAIN SCALE 1-3/ TEMP ABOVE 100F Days = 7 Qty = 20 Instructions: CAN GET THIS OTC. Objective VS/I O Last Documented: Result Date Time Pulse Ox 94 07/28 1043 B/P 102/54 07/28 1043 O2 Delivery Room air 07/28 1043 Temp 98.0 07/28 1043 Pulse 81 07/28 1043 Resp 16 07/28 1043 B/P Mean 79.6 07/28 0522 FiO2 21 07/27 0545 O2 Flow Rate 3 07/14 1151 24 hour I O ending at 0700: 07/28 0700 07/27 1900 Intake Total 1350 Output Total 2200 Balance -850 Intake, Oral 1350 Output, Urine 2200 Patient 205 lb Weight Weight Standing scale Measurement Method General appearance: alert, awake, oriented Head/Eyes: EOMI Neck: no JVD, HAS A CROCKER MARLEY Cardiovascular: normal heart sounds, regular rat e rhythm Respiratory: aerating well, clear to auscultatio n, symmetric expansion, no distress Abdomen: non-tender, normal bowel sounds , soft, no distention, no guarding, no rebound Genitourinary: urinary catheter Extremities: no edema Musculoskeletal: normal inspection 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ALTH: normal speech, no motor deficits, no sensory deficits Skin: intact, normal color, no rash Psychiatry: normal affect Results Findings/Data: Laboratory Tests: 07/28 07/28 0430 0430 Chemistry Sodium (134 - 147 mEq/L) 139 Potassium (3.4 - 5.0 mEq/L) 4.7 Chloride (100 - 108 mEq/L) 107 Carbon Dioxide (21 - 33 mEq/l) 23 Anion Gap (0 - 20) 13 BUN (7 - 18 mg/dL) 48 H Creatinine (0.6 - 1.3 mg/dL) 4.3 H Glomerular Filtr Rate (70 - 80) 13.3 L Glucose (70 - 110 mg/dL) 90 Calcium (8.0 - 10.5 mg/dL) 8.6 Magnesium (1.80 - 2.40 mg/dL) 1.91 Hematology WBC (4.5 - 11.0 x10 3/uL) 10.5 RBC (4.00 - 5.60 x10 6/uL) 2.79 L Hgb (12.5 - 16.9 g/dL) 8.1 L Hct (37.5 - 50.7 %) 26.4 L MCV (81.0 - 99.0 fL) 94.6 MCH (27.0 - 33.0 pg) 29.0 MCHC (33.0 - 37.0 g/dL) 30.7 L RDW (11.5 - 14.5 %) 16.1 H Plt Count (150 - 400 x10 3/uL) 308 MPV (7.0 - 9.0 fL) 10.5 H Neut % (Auto) (56.0 - 77.0 %) 66.9 Lymph % (Auto) (14.0 - 32.0 %) 13.8 L [place] % (Auto) (4.8 - 9.0 %) 7.9 Eos % (Auto) (0.3 - 3.7 %) 9.8 H Baso % (Auto) (0.0 - 2.0 %) 0.9 Neut # (Auto) (2.0 - 7.6 x10 3/uL) 7.05 Lymph # (Auto) (1.0 - 3.8 x10 3/uL) 1.45 [place] # (Auto) (0.1 - 0.8 x10 3/uL) 0.83 H Eos # (Auto) (0.0 - 0.2 x10 3/uL) 1.03 H Baso # (Auto) (0.0 - 0.2 x10 3/uL) 0.09 Abs Immat Gran (auto) (0.00 - 0.03 x10 3/uL) 0. 07 H Add Manual Diff NO Immature Gran % (0.0 - 2.0 %) 0.7 Nucleated RBC % (0 - 0 %) 0.0 Nucleated RBCs # (Man) (0.0 - 0.1 x10 3/uL) 0.0 0 Discharge Instructions PCP PCP follow-up: PCP: Los Crawford DO Discharge to: Home Health lan of Care Additional Discharge Routines: Retread Technician Follow -Up, Fluid Restrictions Diet: Cardiac, Fluid Restrictions, Low Sodium Fluid restriction(mls/day): 1,500 Weight monitoring: With Dialysis Activity: As Tolerated Follow-up Appointments PCP follow-up: PCP: Los Crawford DO PCP follow up timeframe: In 2-3 weeks Special instructions: OR HIS PCP Consulting provider 1: Provider 1: Lina Schwarz MD Specialty: Thoracic Surgery Consult follow up timeframe: In 2-3 weeks Consulting provider 2: Provider 2: Evelina Plaza MD Specialty: Nephrology Follow up timeframe: In 2-3 weeks Consulting provider 3: Provider 3: Liset Ennis MD Specialty: CardiologyInterventional Follow up timeframe: In 2-3 weeks Quality: Discharge Advanced Care Plan 65 or Older Discussed with: patient, CARD LAUNDRY ASSISTANT (SONYA) Current Medications Current medication review: I attest that the foregoing medication list in t he medical record is true, accurate, and complete to the best of my knowled ge. Electronically Signed by Srinath Kaur MD on 07/28 at 1240 RPT #:[id number] END OF REPORT 2022-07-28 11:41:00-00:00 [facility] Progress Note REPORT#:[id number] REPORT STATUS: Signed DATE:07/28/22 TIME: 1141 PATIENT: SHERRI ARCE UNIT #: [id number] ROOM/BED: 3354-1 : 42 AGE: 81 SEX: M ATTEND: Srinath Kaur MD ADM AUTHOR: Sonya Stacy ACNP * ALL edits or amendments must be made on the [email or web address] document * Subjective Patient reports: No: complaints. Objective General VS/I O: 24 hour I O ending at 0700: 07/28 0700 07/27 1900 Intake Total 1350 Output Total 2200 Balance -850 Intake, Oral 1350 Output, Urine 2200 Patient 93.1 kg Weight Weight Standing scale Measurement Method Vital Signs: Date Time Temp Pulse Resp B/P B/P Pulse O2 O2 F low FiO2 Mean Ox Delivery Rate 07/28 1043 36.7 81 16 102/54 94 Room air 07/28 0522 37.1 83 18 110/64 79.6 94 07/28 0352 95 Room air 07/28 0119 36.9 84 16 115/56 76.0 94 07/28 0026 98 Room air 07/27 2121 37.0 81 17 122/63 82.4 94 07/27 1958 95 Room air 07/27 1707 36.9 88 22 127/63 0.0 95 Room air 07/27 1224 36.6 82 20 116/56 0.0 98 Room air PATIENT WEIGHT: Weight (lb): 205 Weight (oz): 4.01 Weight (kg): 93.100 Medications: Active Meds + DC'd Last 24 Hrs Midodrine (PROAMATINE) 5 MG 0900,1300,1700 PRN PO Sodium Chloride (SODIUM CHLORIDE) 10 ML ASDIR IV Amiodarone HCl (CORDARONE) 200 MG BID PO Ipratropium Kersey (ATROVENT) 500 MCG RTQ2H PRN PRN INH Lactulose (LACTULOSE) 20 GM DAILY PRN PRN PO Cyanocobalamin (Vitamin B-12 500 mcg tab) 500 MC G DAILY PO Ferrous Sulfate (FERROUS SULFATE) 325 MG DAILY P O Bisacodyl (DULCOLAX) 10 MG ONCE PRN RECTAL Atorvastatin Calcium (LIPITOR) 40 MG 2100 PO Clopidogrel Bisulfate (Plavix) 75 MG DAILY PO Polyethylene Glycol (MIRALAX) 17 GM DAILY PO Pantoprazole (PROTONIX) 40 MG DAILY@0600 PO Aspirin (ASPIRIN) 81 MG DAILY PO Docusate Sodium (COLACE) 100 MG BID PO Sennosides (Senna Lax 8.6 MG TABLET) 17.2 MG BED TIME PO Ipratropium Kersey (ATROVENT) 500 MCG RTQ4H INH Acetaminophen (TYLENOL) 650 MG Q4H PRN PRN PO Acetaminophen (TYLENOL) 650 MG Q4H PRN PRN RECTA L Dextrose/Water (DEXTROSE 10% IN WATER) 125 ML DIR PRN IV (CKD) Dextrose/Water (DEXTROSE 10% IN WATER) 250 ML DIR PRN IV (CKD) Glucagon (GLUCAGON) 1 MG ASDIR PRN IM Magnesium Sulfate (MAGNESIUM SULFATE 4GM/SWFI 10 0ML) 100 ML ASDIR PRN IV Magnesium Sulfate (MAGNESIUM SULFATE 2GM/SWFI 50 ML) 50 ML ASDIR PRN IV Magnesium Sulfate/Dextrose (MAGNESIUM SULFATE 1G M/D5W 100ML) 100 ML ASDIR PRN IV Ondansetron HCl (ZOFRAN) 4 MG Q6H PRN PRN IV Albumin Human (ALBUMINAR-25%) 12.5 GM ASDIR PRN IV Heparin Sodium (Porcine) (HEPARIN SODIUM) 3,000 UNIT ASDIR PRN DIALYSIS Lidocaine HCl (LIDOCAINE HCL/PF) 0.5 ML ASDIR NV N I-DERMAL (CKD) Mannitol (Mannitol 20%) 12.5 GM ASDIR PRN IV Sodium Chloride (SODIUM CHLORIDE 0.9%) 2,000 ML ASDIR PRN IV Tamsulosin HCl (Flomax 0.4 mg) 0.4 MG BEDTIME PO Status post: 07/08/22 CABG x 5 (MISTRY-LAD, SVG-Ladonna, SVG-OM1< SV G-OM3, SVG-PDA) ALAA Physical Exam General appearance: alert, awake Head/Eyes: atraumatic ENT: moist mucosal membranes Neck: no JVD Cardiovascular: CV assessment: regular rate and rhythm, no murm ur Respiratory: decreased breath sounds, no distres s Abdomen: soft, non-tender, normal bowel sounds, no distention, no guarding Upper extremity: UE assessment: normal temperature, no edema Lower extremity: LE assessment: normal temperature, no edema Musculoskeletal: normal inspection 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ALTH: alert, oriented X 3, normal speech Skin: dry Psychiatry: normal affect Results Findings/Data: Laboratory Tests 07/28 07/28 0430 0430 Chemistry Sodium (134 - 147 mEq/L) 139 Potassium (3.4 - 5.0 mEq/L) 4.7 Chloride (100 - 108 mEq/L) 107 Carbon Dioxide (21 - 33 mEq/l) 23 Anion Gap (0 - 20) 13 BUN (7 - 18 mg/dL) 48 H Creatinine (0.6 - 1.3 mg/dL) 4.3 H Glomerular Filtr Rate (70 - 80) 13.3 L Glucose (70 - 110 mg/dL) 90 Calcium (8.0 - 10.5 mg/dL) 8.6 Magnesium (1.80 - 2.40 mg/dL) 1.91 Laboratory Tests 07/28 0430 Hematology WBC (4.5 - 11.0 x10 3/uL) 10.5 RBC (4.00 - 5.60 x10 6/uL) 2.79 L Hgb (12.5 - 16.9 g/dL) 8.1 L Hct (37.5 - 50.7 %) 26.4 L MCV (81.0 - 99.0 fL) 94.6 MCH (27.0 - 33.0 pg) 29.0 MCHC (33.0 - 37.0 g/dL) 30.7 L RDW (11.5 - 14.5 %) 16.1 H Plt Count (150 - 400 x10 3/uL) 308 MPV (7.0 - 9.0 fL) 10.5 H Neut % (Auto) (56.0 - 77.0 %) 66.9 Lymph % (Auto) (14.0 - 32.0 %) 13.8 L [place] % (Auto) (4.8 - 9.0 %) 7.9 Eos % (Auto) (0.3 - 3.7 %) 9.8 H Baso % (Auto) (0.0 - 2.0 %) 0.9 Neut # (Auto) (2.0 - 7.6 x10 3/uL) 7.05 Lymph # (Auto) (1.0 - 3.8 x10 3/uL) 1.45 [place] # (Auto) (0.1 - 0.8 x10 3/uL) 0.83 H Eos # (Auto) (0.0 - 0.2 x10 3/uL) 1.03 H Baso # (Auto) (0.0 - 0.2 x10 3/uL) 0.09 Abs Immat Gran (auto) (0.00 - 0.03 x10 3/uL) 0. 07 H Add Manual Diff NO Immature Gran % (0.0 - 2.0 %) 0.7 Nucleated RBC % (0 - 0 %) 0.0 Nucleated RBCs # (Man) (0.0 - 0.1 x10 3/uL) 0.0 0 Laboratory Tests 07/28 0430 Chemistry Magnesium (1.80 - 2.40 mg/dL) 1.91 Results: labs reviewed, vital signs reviewed, [facility] personally rev'd Telemetry Interpretation: sinus rhythm Diagnosis, Assessment Plan Plan discussed with: patient, admitting physicia n, collaborating MD, nurse Free Text DxA P Notes Free Text DxA P Notes: Mr. Arce is a pleasant 81 y/o M w/ PMHx: HTN, HLD presented to [facility] on 06/28/22 for chest pa in and sob. He was diagnosed NSTEMI. LHC showed multivessel CAD. Transferred to [facility] for CABG. 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 urology consulted for bladded outlet obstructio n and hydronephrosis, started on Flomax HD per nephro - HTN. bp stable, midodrine as needed - HLD. On statins. - Anemia. monitor Patient wants to go home. He has been waiting SN F placement since last week. Okay to DC home with homehealth and lifevest. at 1625 Electronically Signed by Liset Ennis MD on at 5700 RPT #:[id number] END OF REPORT 2022-07-28 07:19:00-00:00 [facility] Progress Note REPORT#:[id number] REPORT STATUS: Signed DATE:07/28/22 TIME: 718 PATIENT: SHERRI ARCE UNIT #: [id number] ROOM/BED: [place] [address] : 42 AGE: 81 SEX: M ATTEND: Srinath Kaur MD ADM AUTHOR: Magdaleno Washburn * ALL edits or amendments must be made on the [email or web address] document * Subjective Chief complaint: Rehab follow-up Doing very well Sitting up in chair Denies pain or sob Pleasant Denies NAIK/N/V/D/CP 14 systems reviewed and neg. except that above. Objective General VS: Vital Signs: Date Time Temp Pulse Resp B/P B/P Pulse O2 O2 F low FiO2 Mean Ox Delivery Rate 07/28 0522 98.8 83 18 110/64 79.6 94 07/28 0352 95 Room air 07/28 0119 98.4 84 16 115/56 76.0 94 07/28 0026 98 Room air 07/271 98.6 81 17 122/63 82.4 94 07/27 1958 95 Room air 07/27 1707 98.4 88 22 127/63 0.0 95 Room air 07/27 1224 97.9 82 20 116/56 0.0 98 Room air 07/27 0904 95 Room air 07/27 0845 97.7 88 16 92/51 0.0 92 Room air PATIENT WEIGHT: Weight (lb): 205 Weight (oz): 4.01 Weight (kg): 93.100 Medications: Active Meds + DC'd Last 24 Hrs Midodrine (PROAMATINE) 5 MG 0900,1300,1700 PRN P O Sodium Chloride (SODIUM CHLORIDE) 10 ML ASDIR IV Amiodarone HCl (CORDARONE) 200 MG BID PO Ipratropium Kersey (ATROVENT) 500 MCG RTQ2H PRN PRN INH Lactulose (LACTULOSE) 20 GM DAILY PRN PRN PO Cyanocobalamin (Vitamin B-12 500 mcg tab) 500 MC G DAILY PO Ferrous Sulfate (FERROUS SULFATE) 325 MG DAILY P O Bisacodyl (DULCOLAX) 10 MG ONCE PRN RECTAL Atorvastatin Calcium (LIPITOR) 40 MG 2100 PO Clopidogrel Bisulfate (Plavix) 75 MG DAILY PO Polyethylene Glycol (MIRALAX) 17 GM DAILY PO Pantoprazole (PROTONIX) 40 MG DAILY@0600 PO Aspirin (ASPIRIN) 81 MG DAILY PO Docusate Sodium (COLACE) 100 MG BID PO Sennosides (Senna Lax 8.6 MG TABLET) 17.2 MG BED TIME PO Ipratropium Kersey (ATROVENT) 500 MCG RTQ4H INH Acetaminophen (TYLENOL) 650 MG Q4H PRN PRN PO Acetaminophen (TYLENOL) 650 MG Q4H PRN PRN RECTA L Dextrose/Water (DEXTROSE 10% IN WATER) 125 ML DIR PRN IV (CKD) Dextrose/Water (DEXTROSE 10% IN WATER) 250 ML DIR PRN IV (CKD) Glucagon (GLUCAGON) 1 MG ASDIR PRN IM Magnesium Sulfate (MAGNESIUM SULFATE 4GM/SWFI 10 0ML) 100 ML ASDIR PRN IV Magnesium Sulfate (MAGNESIUM SULFATE 2GM/SWFI 50 ML) 50 ML ASDIR PRN IV Magnesium Sulfate/Dextrose (MAGNESIUM SULFATE 1G M/D5W 100ML) 100 ML ASDIR PRN IV Ondansetron HCl (ZOFRAN) 4 MG Q6H PRN PRN IV Albumin Human (ALBUMINAR-25%) 12.5 GM ASDIR PRN IV Heparin Sodium (Porcine) (HEPARIN SODIUM) 3,000 UNIT ASDIR PRN DIALYSIS Lidocaine HCl (LIDOCAINE HCL/PF) 0.5 ML ASDIR NV N I-DERMAL (CKD) Mannitol (Mannitol 20%) 12.5 GM ASDIR PRN IV Sodium Chloride (SODIUM CHLORIDE 0.9%) 2,000 ML ASDIR PRN IV Tamsulosin HCl (Flomax 0.4 mg) 0.4 MG BEDTIME PO Functional Progress Functional progress: No therapies over weekend Physical Exam General appearance: alert, awake Psych: alert, oriented x 3 HEENT: anicteric, sclera clear Neck: supple, no JVD Cardiovascular: regular rate rhythm, S1/S2 Respiratory: aerating well, clear bilaterally Abdomen: bowel sounds present, non-distended, so ft Skin: intact, no rash Musculoskeletal - general: Musculoskeletal - general: joints normal, meagan l muscle mass, normal tone 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ALTH: alert, oriented X 3, CNII-XII intact Results Findings/Data: Laboratory Tests: 07/28 0430 Hematology WBC (4.5 - 11.0 x10 3/uL) 10.5 RBC (4.00 - 5.60 x10 6/uL) 2.79 L Hgb (12.5 - 16.9 g/dL) 8.1 L Hct (37.5 - 50.7 %) 26.4 L MCV (81.0 - 99.0 fL) 94.6 MCH (27.0 - 33.0 pg) 29.0 MCHC (33.0 - 37.0 g/dL) 30.7 L RDW (11.5 - 14.5 %) 16.1 H Plt Count (150 - 400 x10 3/uL) 308 MPV (7.0 - 9.0 fL) 10.5 H Neut % (Auto) (56.0 - 77.0 %) 66.9 Lymph % (Auto) (14.0 - 32.0 %) 13.8 L [place] % (Auto) (4.8 - 9.0 %) 7.9 Eos % (Auto) (0.3 - 3.7 %) 9.8 H Baso % (Auto) (0.0 - 2.0 %) 0.9 Neut # (Auto) (2.0 - 7.6 x10 3/uL) 7.05 Lymph # (Auto) (1.0 - 3.8 x10 3/uL) 1.45 [place] # (Auto) (0.1 - 0.8 x10 3/uL) 0.83 H Eos # (Auto) (0.0 - 0.2 x10 3/uL) 1.03 H Baso # (Auto) (0.0 - 0.2 x10 3/uL) 0.09 Abs Immat Gran (auto) (0.00 - 0.03 x10 3/uL) 0. 07 H Add Manual Diff NO Immature Gran % (0.0 - 2.0 %) 0.7 Nucleated RBC % (0 - 0 %) 0.0 Nucleated RBCs # (Man) (0.0 - 0.1 x10 3/uL) 0.0 0 Diagnosis, Assessment Plan Free Text A P: Non-STEMI Multivessel CAD S/p CABG x5 Physical deconditioning Impaired mobility and gait Postoperative anemia Dyslipidemia Hypertension CLAUDETTE Acute systolic heart failure Hemodynamic issues postop Leukocytosis trending down Pleural effusion and atelectasis Plan: Continue PT/OT Out of bed to chair Work on strength, bed mobility, transfers, gait Sternal precaution Increase endurance Fall precautions Monitor p.o. intake and nutrition Strict decubitus precautions Monitor anemia. Persistent left pneumothorax. IR guided pigtail place. CXR shows expansion of the lung Urology consulted -Pt on Flomax Nephrology managing renal issues and elevated K+ Utilize IS to reduce atelectasis Advance therapies as tolerated Pt lives alone and has 5 to 6 stairs to enter ho use SNF order has been placed. Will require insurance approval for SNF , dialysis clinic acceptance, approval for Life[facility]est prior to discharge Total time was 33 minutes > 50% with patient per forming physical examination, discussing plan of care, goals, therapies, progr ess, medications, labs, SNF. All questions answered Rehab attestation: . Electronically Signed by Magdaleno Washburn on 0 07/28/22 at 1433 RPT #:[id number] END OF REPORT 2022-07-27 14:44:00-00:00 [facility] Progress Note REPORT#:[id number] REPORT STATUS: Signed DATE:07/27/22 TIME: 1444 PATIENT: SHERRI ARCE UNIT #: [id number] ROOM/BED: [place] [address] : 42 AGE: 81 SEX: M ATTEND: Srinath Kaur MD ADM AUTHOR: Evelina Plaza MD * ALL edits or amendments must be made on the [email or web address] document * Subjective Chief complaint: Feeling okay and has no complaints at this time. Objective Physical Exam Head/eyes: atraumatic, normocephalic ENT: moist mucous membranes, normal nose Neck: non-tender, no JVD Cardiovascular: regular rate and rhythm Respiratory: clear to auscultation Abdomen: non-tender, soft Genitourinary: no bladder distention Extremities: no edema, no swelling 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ALTH: alert, oriented X 3, normal speech Skin: dry, intact Treatment Prophylaxis Treatment Prophylaxis Drain(s)/tube(s): Drain(s)/tube(s): chest Diagnosis, Assessment Plan Free Text A P: Assessment: 1-CLAUDETTE likely from urinary retention with underlying CKD. oliguric CLAUDETTE now post op, and shock. 2- non-STEMI: multivessel disease w main left. 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 Waters catheter is in place. 4-severe bilateral hydronephrosis 5- shock : Cardiogenic resolved. 6-hyperlipidemia 7- AGMA resolved. Plan: - unknown Scr baseline. - HD MWF here. seen during HD today. - Still has excellent urine output volume. - Ultrasound showed severe bilateral hyd ronephrosis and medical renal disease. Urology seen and recommended Waters catheter when discharged home with Flomax, and outpatient follow-up. - He underwent LHC on 07/03. - Started on HD on 07/04. - s/p CABG X5 on 07/08 - TDC placed 07/15. - cr cl 7 ml/min. - discussed with CM. HD sche duled TTS, hopefully first HD on Thursday. okay to d/ c home after HD in am. Pending placement arrangement. Consultants: nephrology Electronically Signed by Evelina Plaza MD on at 1910 RPT #:[id number] END OF REPORT 2022-07-27 14:06:00-00:00 [facility] ([facility] Hospitalist Progress Note REPORT#:[id number] REPORT STATUS: Signed DATE:07/27/22 TIME: 1405 PATIENT: SHERRI ARCE UNIT #: [id number] ROOM/BED: [place] [address] : 42 AGE: 81 SEX: M ATTEND: Jesus Larson MD ADM AUTHOR: Jesus Larson MD * ALL edits or amendments must be made on the [email or web address] document * Subjective Chief complaint: pt now feels like he may be ready to go home (already has been in the hospital since 07/02). no cp no sob. ambulating. Objective General VS/I O: Vital Signs: Date Time Temp Pulse Resp B/P B/P Pulse O2 O2 F low FiO2 Mean Ox Delivery Rate 07/27 1224 97.9 82 20 116/56 0.0 98 Room air 07/27 0904 95 Room air 07/27 0845 97.7 88 16 92/51 0.0 92 Room air 07/27 0545 95 Room air 21 07/27 0439 98.1 86 18 107/50 69.3 94 07/27 0103 96 Room air 07/26 2253 98.1 88 18 115/61 79.2 94 07/26 2034 96 Room air 07/26 1920 98.2 83 18 111/62 78.6 94 07/26 1739 97.2 75 18 122/66 84 95 24 hour I O ending at 0700: 07/27 0700 07/26 1900 Intake Total 240 580.00 Output Total 2100 Balance 240 -1520.00 Intake, IV 100.00 Intake, Oral 240 480 Number 2 Bowel Movements Output, 1000 Hemodialysis Output, Urine 1100 Patient 83 kg Weight Weight Standing scale Measurement Method PATIENT WEIGHT: Weight (lb): 182 Weight (oz): 15.74 Weight (kg): 83.000 Physical Exam General appearance: alert, awake Head/Eyes: atraumatic, EOMI, normal conjunctiva/ sclera, normocephalic, PERRLA ENT: moist mucosal membranes Neck: no JVD Cardiovascular: normal heart sounds, regular rat e rhythm Respiratory: aerating well, clear to auscultatio n, symmetric expansion, no distress Abdomen: non-tender, normal bowel sounds , soft, no distention, no guarding, no rebound Genitourinary: urinary catheter Extremities: no edema Musculoskeletal: normal inspection 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: normal speech, no motor deficits, no sensory deficits Skin: intact, normal color, no rash Psychiatry: normal affect Results Radiology data: Laboratory Tests 07/27/22 0415: [Embedded Image Not Available] 07/26/22 0400: [Embedded Image Not Available] Current Medications Sig/Earl Start time Last Medication Dose Route Stop Time Status Admin Midodrine 5 MG 0900,1300,1700 PRN 07/17 2100 AC 07/24 PO 08/16 2058 1004 Sodium Chloride 10 ML ASDIR 07/17 1030 AC 07/26 IV 08/16 1029 1450 Amiodarone HCl 200 MG BID 07/16 09 AC 07/27 PO 08/15 0859 0839 Ipratropium Kersey 500 MCG RTQ2H PRN PRN 07/11 1821 AC 07/26 INH 08/10 1820 2034 Lactulose 20 GM DAILY PRN PRN 07/11 1245 AC 3 PO 08/10 1244 1411 Cyanocobalamin 500 MCG DAILY 07/11 09 AC 07/27 PO 08/10 0859 0839 Ferrous Sulfate 325 MG DAILY 07/11 09 AC 07/27 PO 08/10 0859 0839 Bisacodyl 10 MG ONCE PRN 07/10 1200 AC 07/11 RECTAL 08/09 1159 0928 Atorvastatin Calcium 40 MG 2100 07/09 2100 AC 0 07/26 PO 08/08 205 2116 Clopidogrel Bisulfate 75 MG DAILY 07/09 09 AC 07/27 PO 08/08 0859 0839 Polyethylene Glycol 17 GM DAILY 07/09 09 AC PO 08/08 0859 1008 Pantoprazole 40 MG DAILY@0600 07/09 0600 AC 07/09 9 PO 08/08 0559 0603 Aspirin 81 MG DAILY 07/09 0020 AC 07/27 PO 08/08 0019 0839 Docusate Sodium 100 MG BID 07/08 2100 AC 07/26 PO 08/07 2058 0904 Sennosides 17.2 MG BEDTIME 07/08 2100 AC 07/24 PO 08/07 205 2048 Ipratropium Kersey 500 MCG RTQ4H 07/08 1900 AC 07/27 INH 08/07 1859 1224 Acetaminophen 650 MG Q4H PRN PRN 07/08 1830 AC 0 07/24 PO 08/07 1829 1005 Acetaminophen 650 MG Q4H PRN PRN 07/08 1830 AC RECTAL 08/07 1829 Dextrose/Water 125 ML ASDIR PRN 07/08 1830 CKD IV 08/07 1829 Dextrose/Water 250 ML ASDIR PRN 07/08 1830 CKD IV 08/07 1829 Glucagon 1 MG ASDIR PRN 07/08 1830 AC IM 08/07 1829 Magnesium Sulfate 100 ML ASDIR PRN 07/08 1830 AC IV 08/07 1829 Magnesium Sulfate 50 ML ASDIR PRN 07/08 1830 AC 07/26 IV 08/07 1829 0904 Magnesium Sulfate/ 100 ML ASDIR PRN 07/08 1830 A C 07/16 Dextrose IV 08/07 1829 0650 Ondansetron HCl 4 MG Q6H PRN PRN 07/08 183 AC IV 08/07 1829 Albumin Human 12.5 GM ASDIR PRN 07/03 1200 AC IV 08/03 1155 0915 Heparin Sodium 3,000 UNIT ASDIR PRN 07/03 1200 A C 07/26 (Porcine) DIALYSIS 08/02 1159 1448 Lidocaine HCl 0.5 ML ASDIR PRN 07/03 1200 CKD I-DERMAL 08/03 1155 Mannitol 12.5 GM ASDIR PRN 07/03 1200 AC IV 08/03 1155 Sodium Chloride 2,000 ML ASDIR PRN 07/03 1200 AC 07/26 IV 08/03 1155 1447 Tamsulosin HCl 0.4 MG BEDTIME 07/02 2144 AC 07/09 8 PO 08/01 Laboratory Tests: 07/27 07/27 0415 0415 Chemistry Sodium (134 - 147 mEq/L) 142 Potassium (3.4 - 5.0 mEq/L) 4.6 Chloride (100 - 108 mEq/L) 109 H Carbon Dioxide (21 - 33 mEq/l) 26 Anion Gap (0 - 20) 12 BUN (7 - 18 mg/dL) 35 H Creatinine (0.6 - 1.3 mg/dL) 3.4 H Glomerular Filtr Rate (70 - 80) 17.6 L Glucose (70 - 110 mg/dL) 93 Calcium (8.0 - 10.5 mg/dL) 8.8 Magnesium (1.80 - 2.40 mg/dL) 2.00 Hematology WBC (4.5 - 11.0 x10 3/uL) 10.9 RBC (4.00 - 5.60 x10 6/uL) 2.82 L Hgb (12.5 - 16.9 g/dL) 8.3 L Hct (37.5 - 50.7 %) 26.8 L MCV (81.0 - 99.0 fL) 95.0 MCH (27.0 - 33.0 pg) 29.4 MCHC (33.0 - 37.0 g/dL) 31.0 L RDW (11.5 - 14.5 %) 16.3 H Plt Count (150 - 400 x10 3/uL) 322 MPV (7.0 - 9.0 fL) 10.5 H Neut % (Auto) (56.0 - 77.0 %) 70.7 Lymph % (Auto) (14.0 - 32.0 %) 10.3 L [place] % (Auto) (4.8 - 9.0 %) 8.3 Eos % (Auto) (0.3 - 3.7 %) 9.4 H Baso % (Auto) (0.0 - 2.0 %) 0.7 Neut # (Auto) (2.0 - 7.6 x10 3/uL) 7.69 H Lymph # (Auto) (1.0 - 3.8 x10 3/uL) 1.12 [place] # (Auto) (0.1 - 0.8 x10 3/uL) 0.90 H Eos # (Auto) (0.0 - 0.2 x10 3/uL) 1.02 H Baso # (Auto) (0.0 - 0.2 x10 3/uL) 0.08 Abs Immat Gran (auto) (0.00 - 0.03 x10 3/uL) 0. 06 H Add Manual Diff NO Immature Gran % (0.0 - 2.0 %) 0.6 Nucleated RBC % (0 - 0 %) 0.0 Nucleated RBCs # (Man) (0.0 - 0.1 x10 3/uL) 0.0 0 Recent Impressions: RADIOLOGY - XR CHEST 1 V 07/27 0703 Report Impression - Status: SIGNED Entered: 07/27/2022820 IMPRESSION: Bibasilar opacities with small bilateral pleural effusions. Impression By: Noreen Perdue Treatment Prophylaxis Treatment Prophylaxis Drain(s)/tube(s): Drain(s)/tube(s): chest Diagnosis, Assessment Plan Consultants: nephrology Free Text DxA P Notes Free text DxA P notes: NSTEMI, CAD (coronary artery disease), S/P CABG X 5 ON 07/08- STABLE, CARD/CTS SEEN, TX TO SNF ON THURSDAY, EF 30-35% patient presented with NSTEMI and found to hve severe CAD. Cardiac cath shows: Left Main - Distal 70% LAD - Proximal 80% with another 60% and 70% les sions Cir - Proximal 80%,mid 80-90%, Distal 70% and O M 60% RCA - large dominant with proximal 40%, Mid 60% . Echo: ef 30-34%, mod hypokinesis of entire myoc ardium, grade 1 diastolic dysfunction Patient on ASA, plavix, BB and Statin on amiodarone, Beta-tomas as tolerated for lo w BP, Acute systolic heart failure - STABLE, NO CHARLY/BB DUE TO LOW BP, ON MIDODRINE PRN , EF 30-35% Echocardiac with estimated LVEF of 30 to 34% wi grade 1 diastolic dysfunction -s/p Lasix 20 mg twice daily 07/05 -on metoprolol 12.5 mg bid on hold now, BP low -no ACEI/ spironolactione for CLAUDETTE -Start GDMT prior to discharge -Await LifeVest 07/22 - LIFEVEST at bedside. CLAUDETTE (acute kidney injury) DUE TO POST-OBS NEPHRO REMY - ON HD MWF, RENAL/UROL SEEN, NEEDS SNF WITH DIALYSIS ACCESS, CONT WATERS , FLOMAX, CAP SEWER FROM 7.0 TO 4.3 No prior Hx of renal disease. hx of BPH and casimiro ated with Fosamax w/o improvement nd continue to h ave difficulty urinating. On admission was found to be on acute renal filaure and had received HD tw ice prior to arrival here ( thursday and thursday). 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 BPH (benign prostatic hyperplasia) - ABOVE, O N WATERS Started on Flomax at the previous hospital, thais l continue with it. Waters catheter in place, continue Waters cathete r as per nephrology 07/05 Goiter Hx of Goiter and surgical resection. TSH 3.33, within normal limits. Patient is not on Thyroid medication. RXT LEUKOCYTOSIS - STABLE, NO INFECTION DEBILITY - OT/PT SEEN, SNF TX SOON UTI continue Rocephin for empiric treatment pend ing results of urine culture No growth for 48 hours DVT prophylaxis: Heparin 5000 units every 8 hour s Diet: Cardiac diet CODE STATUS: Full code Disposition: Status post CABG x5 on 07/09, hemodia lysis as per nephrology. Worked with PT in his room, on 2 L oxygen via na cj cannula. PT/OT on board. Await LifeVest and SNF placement 07/22- awaiting SNF. lifevest arranged. 07/23 stable, awaiting SNF placement 07/24- awaiting SNF 07/25 awaiting SNF, discussed with case managemen t 07/26 - awaiting SNF 07/27 - PERHAPS PM R TO REASS ESS and see if home with H/H is now an option since he has been in the hospital for so long, getting PT here. Quality: Gen Med Crit Care VTE Prophylaxis VTE prophylaxis initiated: yes Advanced Care Plan 65 or Older Discussed with: patient Discussion included: living will (none), power of employment law attorney (none), code status ( full code) Electronically Signed by Jesus Larson MD on 07/09 02/28 at 1408 RPT #:[id number] END OF REPORT 2022-07-27 11:52:00-00:00 [facility]ACL [facility] Cardiothoracic Surgery Prog REPORT#:[id number] REPORT STATUS: Signed DATE:07/27/22 TIME: 1152 PATIENT: SHERRI ARCE UNIT #: [id number] ROOM/BED: [place] [id number] : 42 AGE: 81 SEX: M ATTEND: Srinath Kaur MD ADM AUTHOR: Gianna Hoover * ALL edits or amendments must be made on the el [employer]/computer document * General Post-op: day 18 Status post: 07/08/22 CABG x 5 (MISTRY-LAD, SVG-Ladonna, SVG-OM1< SVG-OM3, SVG-PDA) ALEXIS OSMANH (RGSV) Subjective Chief complaint: s/p CABG no complaints Review of Systems Constitutional: Denies: chills, fever, malaise. Allergy/Immun: Denies: allergic reaction. Respiratory: Denies: SOB. Cardiovascular: Denies: chest pain, palpitations. GI: Denies: abdominal pain, nausea, vomiting. : Denies: dysuria, hematuria. Heme: Denies: bleeding. Neuro: Denies: dizziness, headache, vision change. All systems rev neg: except as marked Objective General VS/I O Last Documented: Result Date Time Pulse Ox 95 07/27 0904 O2 Delivery Room air 07/27 0904 B/P 92/51 07/27 0845 B/P Mean 0.0 07/27 0845 Temp 97.7 07/27 0845 Pulse 88 07/27 0845 Resp 16 07/27 0845 FiO2 21 07/27 0545 O2 Flow Rate 3 07/14 1151 24 hour I O ending at 0700: 07/27 0700 07/26 1900 Intake Total 240 580.00 Output Total 2100 Balance 240 -1520.00 Intake, IV 100.00 Intake, Oral 240 480 Number 2 Bowel Movements Output, 1000 Hemodialysis Output, Urine 1100 Patient 83 kg Weight Weight Standing scale Measurement Method PATIENT WEIGHT: Weight (lb): 182 Weight (oz): 15.74 Weight (kg): 83.000 Physical Exam General appearance: alert, awake Wound/incision: Location: sternal Site condition: edges approximated, incision in tact, no drainage, no ecchymosis, no erythema HEENT: anicteric, mucosal membranes moist Neck: supple/no meningismus Cardiovascular: normal heart sounds, regular rat e rhythm Respiratory: aerating well, symmetric expansion, no distress Abdomen: soft, non-tender, no distention Genitourinary: waters Extremities: moves all 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ALTH: alert, oriented X 3, normal speech, n o motor deficits Psychiatry: normal affect, normal mood Treatment Prophylaxis Treatment Prophylaxis Drain(s)/tube(s): Drain(s)/tube(s): chest Quality: Trauma Gen Surg Advanced Care Plan 65 or Older Discussed with: patient Discussion included: living will (none), power of employment law attorney (none), code status ( full code) VTE Prophylaxis - General VTE prophylaxis initiated: yes Diagnosis, Assessment Plan Hospital course to date: This is a 81-year-old gentleman who presented to an outside hospital with complaints of chest pains while walking at his home on Thursday. He denies any previous history of coronary artery disease or o ther NE. He was seen and evaluated at [facility]. He was found to have a urinary tract infection with urinary retention and acute kidne y. He was started on dialysis via a left femoral temporary catheter. He underw ent dialysis on Thursday, Thursday. Renal has been consulted During his work-up at outside hospital he underw ent Left heart catheterization showing sever e Left Main 70%. LAD: Proximal diffuse 80% stenosis and then diffuse 60% in the midsegment and on the distal segment, there is focal 70% stenosis. Diagonal branches w ith luminal irregularities. Left circumflex, codominant circulation with pro ximal 80%, mid 80 to 90% and then in the OM, there is proximal 60%, distal le ft circumflex has a 70% stenosis. RCA large and dominant with proximal 4 0% stenosis, mid 60% stenosis and then diffuse 50% stenosi s all the way distally and the PLV and the PDA with luminal irregularities. CV surgery consulted for evaluation for coronary bypass graft. CAROTIDS - No carotid stenosis CT chest complete IMPRESSION: Small bilateral pleural effusions with bibasila r atelectasis. Echo: 1. Left ventricle: The cavity size is at the upp er limits of normal. Wall thickness is mildly increased. Systolic fu nction is severely reduced. The estimated ejection fraction is 30- 34%. Moderate hypokinesis of the entire myocardium. Doppler p arameters are consistent with abnormal left ventricular relax ation (grade 1 diastolic dysfunction). 2. Pericardium, extracardiac: A small pericardia l effusion is identified along the left ventricular free wall, along the right ventricular free wall, and along the right atrial free wall . Assessment/Plan 1) CAD Mutlivessel Will obtain echo,carotids. 2) CLAUDETTE Started dialysis on Creatine 7.3 Renal consulted. 3) BPH- Urinary retention. Waters in place Workup for CABG underway. Will get functional assessment with PT. PFT pending Carotid dopplers- No disease Echo Pending Dialyiss per Renal. Baseline Cr unknown. 07/04 07/04 Doing well today, alert, up in the chair. Denies chest pain Echocardiogram showed LVEF 30 to 34%, mild MR, t rivial TR CT chest images reviewed Encourage I-S and mobilization Creatinine 5.5 from 7.3, good urine output. Pao l US showed bilateral severe hydronephrosis. Plan for HD today and tomorrow Will tentatively schedule patient for surgery on Thursday. Patient seen and plan reviewed with Dr Schwarz 07/05 Remains in a stable condition, denies chest pain BUN 53, creatinine 5.4. Plan for hemodia lysis today and tomorrow for clearance He is also on Lasix 20 mg IV twice daily, urine output 1.1 L overnight We will calculate risk of surgery with STS score Encourage I-S and mobilization Will tentatively schedule patient for surgery on Thursday. Pt seen and plan reviewed with Dr Schwarz 07/06 BUN 36, creatinine 4.4. Plan for hemodialysis to day Awaiting CABG tomorrow Surgery, risks involved, STS score, benefits, co mplications and alternatives were explained to the patient. He acknow ledged understanding and is willing to proceed N.p.o. after midnight Patient seen and plan reviewed with Dr. Schwarz 07/09/22 POD 1 CABG x 5 (MISTRY-LAD, SVG-Ladonna, SVG-OM1< SVG-OM3, S VG-PDA), ALAA, EVH (RGSV) Patient hemodynamically unstable, on epi at 4, a nd vaso .04, decreased uop overnight- 150cc Started patient on CRRT 2k/3.5 Wean epi as tolerated, Cardiac incex 2.8-3 labs and chest x-ray reviewed, electroly marcie stable, hgb 6.5- transfuse 2 units PRBC On 4l nasal cannula- encourage incentive spirome ter and deep breathing Keep both chest tubes and monitor outputs Glycemic control on insulin drip Cardiac diet Bowel regimen protocol Pain management SCDs for DVT and PPI for GI prophylaxis PT/OT Monitor patient closely in CVICU Plan of care discussed with Dr. Schwarz 07/10/22 POD 2 Patient alert, awake, and oriented, no distres n oted labs and CXR reviewed stable Breathing comfortably on 3l nasal cannula- wean as tolerated to melissa O2 sats > 92 % Encourage I-S use and deep breathing On CRRT- able to remove 2.9L overnight- nephrolo gy following Cardiac index 3.1- wean off epi drip Keep chest tubes for now and monitor outputs Transition to sliding scale insulin- cardiac t Try to get patient out of bed to chair today- am bulate with PT/OT SCDs for DVT prophylaxis Keep patient in CVICU for close monitoring 07/11/22 POD 3 Patient in stable condition, overnight e vents noted- decreased urine output 35 ml last night-started on dopamine gtt for renal perfusion Cardiac index 3.5- epi currently at 2- will disc ontinue today, vasopressin at 0.02, added low dose midodrine 2.5 mg TID, repea t echocardiogram. Renal Following- trial Lasix Patient has Left femoral tem p dialysis cath, Will need tunneled dialysis IJ cath placed if need dialysis. On 5l nasal cannula- wean off as tolerat ed, encourage incentive spirometer and deep breathing Keep left pleural chest tube and monitor output- > 200 cc Tolerating diet, bowel regimen protocol PT/OT- patient out of bed to chair today- encour age ambulation DVT prophylaxis with SCDs Monitor patient closely in CVICU Plan discussed with multidisciplinary team Plan discussed with Dr Schwarz/ Dr Rodríguez 07/12/22 POD 5, Patient resting comfortable. Patient with hx of urinary r etention- After standing today- voided 1.4 L. Needs Urology consult for retention K 5.4- HD in progress. Dr Plaza following. CT output 20- DC today. Pacers remain in place. Patient has Left femoral tem p dialysis cath, Re-evaluate on Thursday if ocean transportation intermediary dialysis needed. Card: Remains in sinus rhythm. Respir: on 7 L NC O2 95% Dispo: Rehab consulted Patient seen and exmained by Dr Rodríguez. Plan discussed with Team 07/13/22 POD 5 Patient with no new complaints. Recieved HD yest erday. Requiring less oxygen, now on 3l nasal cannula- continue to wean off CXR reviewed left apical pne umothorax 4cm/30%, Chest tube drained 140 overnight, placed back on suction to clear pneumo, CT drianed 200cc th is AM. on suction. Labs reviewed- stable, decreased WBC, hgb stable , CR 3.9 Eating welll, +BM UO- 550CC, BP improved on midodrine. Continue PT/OT, ambulation and incentive spirome ter use Rehab folowing Monitor in ICU today Disucssed with Dr Schwarz- Adeola C femoral line and Central line today. DC art line. Will re-eval need for dialysis cath Thursday. Cons ider tunnelled cath if need. Patient seen and examined by Dr Rodríguez. Plan discussed with Care team. 07/14 POD 6 Patient in stable condition, no distress noted Remains on room air, O2 sats > 92%, encourage I- S use and deep breathing CXR shows moderate left apical pneumothorax unch anged CT remained on suction, no airleak no Consult IR for pigtail chest tube placement this morning Cardiac/renal diet Labs reviewed- K 5.1- repeat labs K 4.8 Nephrology following Continue therapy with PT/OT Follow up with urology for waters catheter- Dr Hunter carrera consulted. Monitor in CVICU Plan of care discussed with Dr Schwarz and multi disciplinary team 07/15/22 POD 7 Patient alert, awake, and oriented, no distress, no complaints at this time Breathing comfortable on room air CXR shows resolved pneumothorax LP and pigtail chest tube- no air leak noted, mi nimal output from LP 40 overnight Labs reviewed, K 5.2- corrected, follow up with nephrology to discuss need for dialysis Trend labs this afternoon Bowel regimen, +gas Waters catheter discontinued per urology- voiding trial this AM Ambulation and incentive spirometer use encourag ed DVT prophylaxis with SCDs Keep in ICU DISP: SNF- Case management Discussed plan of care with multidisciplinary te am and Dr. Schwarz 07/16/2022 POD 8 Patient doing well, alert, awake, and oriented O2 sats 93% on room air, encourage I-S CXR stable- no pneumo noted Left pigtail chest tube - no air leak, clamped t his morning, repeat CXR Placement of tunneled dialysis catheter (BioFlo DuraMax 28 cm) yesterday HD treatment done yesterday evening, plan for HD treatment today per nephrology Patient failed voiding trial, waters catheter rep laced- follow up with urology Eating well Continue PT/OT- ambulation Transfer to CV 1 intermediate care unit Discharge planning for SNF- following and to set up dialysis chair Patient seen with Dr. Allie louis and discussed plan of care with multidisciplinary team. 07/17/22 Patient in stable condition, no complaints Labs and CXR reviewed- stable Left pigtail chest tube discontinued yesterday- no pneumo noted Remains on room air, no distress- I-S encouraged Cardiac diet, +BM Keep waters per urology f/u outpt, continue floma x HD per nephrology- CM to setup outpt dialysis ch air Awaiting bed availability on CV 1 Discharge planning- SNF Plan of care discussed with multidisciplinary david portillo and Dr. Schwarz. 07/18 Patient in stable condition, no complaints Remains on room air, no distress- I-S encouraged Epicardial pacing wires discontinued. Limited ec ho to rule out pericardial effusion Keep waters per urology f/u outpt, continue floma x HD per nephrology- to setup outpt dialysis ch air Discharge planning- SNF Plan of care discussed with multidisciplinary david portillo and Dr. Schwarz. 07/19 No new events Echocardiogram done, report pending HD per nephrology- to setup outpt dialysis ch air [facility] Patient seen and plan reviewed with Dr. Schwarz 07/20 Remains in a stable condition. Echocardiogram showed LVEF 30 to 34%, trivial pe ricardial effusion HD schedule per nephrology Awaiting insurance approval for SNF 07/21 No complaints today HD schedule per nephrology Awaiting insurance approval for SNF Encourage I-S and mobilization 07/22 Remains in stable condition Continue current management. Aspirin, Plavix, statin. Did not tolerate metoprolol, on midodrine 5 mg 3 times daily WBCs trending down Awaiting insurance approval for SNF 07/23 No new events Hemodialysis this mornning Hemodynamically stable, sinus rhythm 80s Awaiting placement 07/24 Doing well today No changes in sternal incision Sternal precautions for 6 weeks Awaiting placement 07/25/22 Doing well. Denies CP Dialysis today. Sternum clean dry Labs reveiwed. Life vest ordered. EF 30%- 35% Awaiting placement 07/26/22 Doing well, CT sutures removed. Respir: on Room air 98% Cardiac: remains sinus rhty Life vest at bedside. Awaiting transfer to facility. Labs reviewed. CXR reviewed- stable. encouraghe IS- Deep breathing Out of bed with PT 07/27/22 Doing well. No complaints. Wound clean, Dry. Respir: 99% on room air. Life vest at bedside, Contnue dialysis- [facility]waiting transfer [facility]. Stable. Patient seen and examined by Dr Schwarz Consultants: nephrology Electronically Signed by Gianna Hoover on 0 07/27/22 at 1154 at 1000 RPT #:[id number] END OF REPORT 2022-07-27 07:04:00-00:00 [facility] REPORT#:[id number] REPORT STATUS: Signed DATE:07/27/22 TIME: 0704 PATIENT: SHERRI ARCE UNIT #: [id number] ROOM/BED: [place] [address] : 42 AGE: 81 SEX: M ATTEND: Jesus Larson MD ADM AUTHOR: Magdaleno Washburn * ALL edits or amendments must be made on the [email or web address] document * Subjective Chief complaint: Rehab follow-up Doing very well Sitting up in chair eating breakfast Denies pain or sob Pleasant Denies NAIK/N/V/D/CP 14 systems reviewed and neg. except that above. Objective General VS: Vital Signs: Date Time Temp Pulse Resp B/P B/P Pulse O2 O2 F low FiO2 Mean Ox Delivery Rate 07/27 0545 95 Room air 07/27 0439 98.1 86 18 107/50 69.3 94 07/27 0103 96 Room air 07/26 2253 98.1 88 18 115/61 79.2 94 07/26 2034 96 Room air 07/26 1920 98.2 83 18 111/62 78.6 94 07/26 1739 97.2 75 18 122/66 84 95 07/26 1344 98.4 75 20 127/68 95 Room air 07/26 1224 97.2 72 12 122/61 81.5 99 Room air 07/26 0832 97 Room air 21 07/26 0811 97.7 87 12 115/62 79.6 97 Room air PATIENT WEIGHT: Weight (lb): 182 Weight (oz): 15.74 Weight (kg): 83.000 Medications: Active Meds + DC'd Last 24 Hrs Midodrine (PROAMATINE) 5 MG 0900,1300,1700 PRN P O Sodium Chloride (SODIUM CHLORIDE) 10 ML ASDIR IV Amiodarone HCl (CORDARONE) 200 MG BID PO Ipratropium Kersey (ATROVENT) 500 MCG RTQ2H PRN PRN INH Lactulose (LACTULOSE) 20 GM DAILY PRN PRN PO Cyanocobalamin (Vitamin B-12 500 mcg tab) 500 MC G DAILY PO Ferrous Sulfate (FERROUS SULFATE) 325 MG DAILY P O Bisacodyl (DULCOLAX) 10 MG ONCE PRN RECTAL Atorvastatin Calcium (LIPITOR) 40 MG 2100 PO Clopidogrel Bisulfate (Plavix) 75 MG DAILY PO Polyethylene Glycol (MIRALAX) 17 GM DAILY PO Pantoprazole (PROTONIX) 40 MG DAILY@0600 PO Aspirin (ASPIRIN) 81 MG DAILY PO Docusate Sodium (COLACE) 100 MG BID PO Sennosides (Senna Lax 8.6 MG TABLET) 17.2 MG BED TIME PO Ipratropium Kersey (ATROVENT) 500 MCG RTQ4H INH Acetaminophen (TYLENOL) 650 MG Q4H PRN PRN PO Acetaminophen (TYLENOL) 650 MG Q4H PRN PRN RECTA L Dextrose/Water (DEXTROSE 10% IN WATER) 125 ML DIR PRN IV (CKD) Dextrose/Water (DEXTROSE 10% IN WATER) 250 ML A SDIR PRN IV (CKD) Glucagon (GLUCAGON) 1 MG ASDIR PRN IM Magnesium Sulfate (MAGNESIUM SULFATE 4GM/SWFI 10 0ML) 100 ML ASDIR PRN IV Magnesium Sulfate (MAGNESIUM SULFATE 2GM/SWFI 50 ML) 50 ML ASDIR PRN IV Magnesium Sulfate/Dextrose (MAGNESIUM SULFATE 1G M/D5W 100ML) 100 ML ASDIR PRN IV Ondansetron HCl (ZOFRAN) 4 MG Q6H PRN PRN IV Albumin Human (ALBUMINAR-25%) 12.5 GM ASDIR PRN IV Heparin Sodium (Porcine) (HEPARIN SODIUM) 3,000 UNIT ASDIR PRN DIALYSIS Lidocaine HCl (LIDOCAINE HCL/PF) 0.5 ML ASDIR NV N I-DERMAL (CKD) Mannitol (Mannitol 20%) 12.5 GM ASDIR PRN IV Sodium Chloride (SODIUM CHLORIDE 0.9%) 2,000 ML ASDIR PRN IV Tamsulosin HCl (Flomax 0.4 mg) 0.4 MG BEDTIME PO Functional Progress Functional progress: The data set between the solid lines has been im ported from multidisciplinary team documentation. __ FUNCTIONAL ACTIVITY ADMISSION STATUS INTERIM ST ATUS Toilet hygiene Toilet transfer Eating Shower/bathing Dressing upper body Dressing lower body Transfer to/from bed to chair Wheel 50ft w/ 2 turns Wheel 150 ft Walk 50 ft w/ 2 turns Walk 150 ft Four steps __ Physical Exam General appearance: alert, awake Psych: alert, oriented x 3 HEENT: anicteric, sclera clear Neck: supple, no JVD Cardiovascular: regular rate rhythm, S1/S2 Respiratory: aerating well, clear bilaterally Abdomen: bowel sounds present, non-distended, so ft Skin: intact, no rash Musculoskeletal - general: Musculoskeletal - general: joints normal, meagan l muscle mass, normal tone 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ALTH: alert, oriented X 3, CNII-XII intact Results Findings/Data: Laboratory Tests 07/26 07/26 07/25 07/25 0400 0400 0446 0446 Chemistry Sodium (134 - 147 mEq/L) 142 140 Potassium (3.4 - 5.0 mEq/L) 4.4 4.6 Chloride (100 - 108 mEq/L) 111 H 107 Carbon Dioxide (21 - 33 mEq/l) 25 22 Anion Gap (0 - 20) 10 16 BUN (7 - 18 mg/dL) 32 H 40 H Creatinine (0.6 - 1.3 mg/dL) 3.5 H 4.0 H Glomerular Filtr Rate (70 - 80) 17.0 L 14.5 L Glucose (70 - 110 mg/dL) 99 86 Calcium (8.0 - 10.5 mg/dL) 8.3 8.7 Magnesium (1.80 - 2.40 mg/dL) 1.76 L 1.87 Laboratory Tests 07/26 07/25 0400 0446 Hematology WBC (4.5 - 11.0 x10 3/uL) 10.8 10.6 RBC (4.00 - 5.60 x10 6/uL) 2.72 L 2.85 L Hgb (12.5 - 16.9 g/dL) 8.0 L 8.2 L Hct (37.5 - 50.7 %) 26.1 L 27.3 L MCV (81.0 - 99.0 fL) 96.0 95.8 MCH (27.0 - 33.0 pg) 29.4 28.8 MCHC (33.0 - 37.0 g/dL) 30.7 L 30.0 L RDW (11.5 - 14.5 %) 16.1 H 16.1 H Plt Count (150 - 400 x10 3/uL) 316 364 MPV (7.0 - 9.0 fL) 10.4 H 10.3 H Neut % (Auto) (56.0 - 77.0 %) 70.0 69.4 Lymph % (Auto) (14.0 - 32.0 %) 10.4 L 8.9 L [place] % (Auto) (4.8 - 9.0 %) 7.5 8.6 Eos % (Auto) (0.3 - 3.7 %) 10.7 H 11.4 H Baso % (Auto) (0.0 - 2.0 %) 0.7 0.9 Neut # (Auto) (2.0 - 7.6 x10 3/uL) 7.52 7.38 Lymph # (Auto) (1.0 - 3.8 x10 3/uL) 1.12 0.95 L [place] # (Auto) (0.1 - 0.8 x10 3/uL) 0.81 H 0.91 H Eos # (Auto) (0.0 - 0.2 x10 3/uL) 1.15 H 1.21 H Baso # (Auto) (0.0 - 0.2 x10 3/uL) 0.08 0.10 Abs Immat Gran (auto) (0.00 - 0.03 x10 3/uL) 0. 07 H 0.09 H Add Manual Diff NO NO Immature Gran % (0.0 - 2.0 %) 0.7 0.8 Nucleated RBC % (0 - 0 %) 0.0 0.0 Nucleated RBCs # (Man) (0.0 - 0.1 x10 3/uL) 0.0 0 0.00 Recent Impressions: RADIOLOGY - XR CHEST 1 V 07/26 0645 Report Impression - Status: SIGNED Entered: 07/26/2022 1450 IMPRESSION: Bibasilar consolidation and left perihilar opaci ty with bilateral pleural effusions similar to prior study. Impression By: [email or web address] - Chaim Alonzo M.D. Diagnosis, Assessment Plan Free Text A P: Non-STEMI Multivessel CAD S/p CABG x5 Physical deconditioning Impaired mobility and gait Postoperative anemia Dyslipidemia Hypertension CLAUDETTE Acute systolic heart failure Hemodynamic issues postop Leukocytosis trending down Pleural effusion and atelectasis Plan: Continue PT/OT Out of bed to chair Work on strength, bed mobility, transfers, gait Sternal precaution Increase endurance Fall precautions Monitor p.o. intake and nutrition Strict decubitus precautions Monitor anemia. Persistent left pneumothorax. IR guided pigtail place. CXR shows expansion of the lung Urology consulted -Pt on Flomax Nephrology managing renal issues and elevated K+ Utilize IS to reduce atelectasis Advance therapies as tolerated Pt lives alone and has 5 to 6 stairs to enter ho use SNF order has been placed. Will require insurance approval for SNF , dialysis clinic acceptance, approval for LifeVest prior to discharge Total time was 33 minutes > 50% with patient per forming physical examination, discussing plan of care, goals, therapies, progr ess, medications, labs, SNF. All questions answered Rehab attestation: . Electronically Signed by Magdaleno Washburn on 0 07/28/22 at 0446 RPT #:[id number] END OF REPORT 2022-07-26 13:36:00-00:00 [facility]ACL [facility] ([facility] Cardiothoracic Surgery Prog REPORT#:[id number] REPORT STATUS: Signed DATE:07/26/22 TIME: 1335 PATIENT: SHERRI ARCE UNIT #: [id number] ROOM/BED: [place] [id number] : 42 AGE: 81 SEX: M ATTEND: Srinath Kaur MD ADM AUTHOR: Gianna Hoover * ALL edits or amendments must be made on the [email or web address] document * General Post-op: day 17 Status post: 07/08/22 CABG x 5 (MISTRY-LAD, SVG-Ladonna, SVG-OM1< SVG-OM3, SVG-PDA) ALAA EVH (RGSV) Subjective Chief complaint: s/p CABG no complaints Review of Systems Constitutional: Denies: chills, fever, malaise. Allergy/Immun: Denies: allergic reaction. Respiratory: Denies: SOB. Cardiovascular: Denies: chest pain, palpitations. GI: Denies: abdominal pain, nausea, vomiting. : Denies: dysuria, hematuria. Heme: Denies: bleeding. Neuro: Denies: dizziness, headache, vision change. All systems rev neg: except as marked Objective General VS/I O Last Documented: Result Date Time Pulse Ox 99 07/26 1224 B/P 122/61 07/26 1224 B/P Mean 81.5 07/26 1224 O2 Delivery Room air 07/26 1224 Temp 97.2 07/26 1224 Pulse 72 07/26 1224 Resp 12 07/26 1224 FiO2 21 07/26 0832 O2 Flow Rate 3 07/14 1151 24 hour I O ending at 0700: 07/26 0700 07/25 1900 Intake Total 480 900 Output Total 900 4050 Balance -420 -3150 Intake, Oral 480 900 Number 1 Bowel Movements Output, 1500 Hemodialysis Output, Urine 900 2550 Patient 83.4 kg Weight Weight Standing scale Measurement Method PATIENT WEIGHT: Weight (lb): 183 Weight (oz): 13.85 Weight (kg): 83.400 Physical Exam General appearance: alert, awake, oriented Wound/incision: Location: sternal Site condition: edges approximated, incision in tact, no drainage, no ecchymosis, no erythema HEENT: anicteric, mucosal membranes moist Neck: supple/no meningismus Cardiovascular: normal heart sounds, regular rat e rhythm Respiratory: aerating well, symmetric expansion, no distress Abdomen: soft, non-tender, no distention Genitourinary: waters Extremities: moves all 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: alert, oriented X 3, normal speech, n o motor deficits Psychiatry: normal affect, normal mood Treatment Prophylaxis Treatment Prophylaxis Drain(s)/tube(s): Drain(s)/tube(s): chest Quality: Trauma Gen Surg Advanced Care Plan 65 or Older Discussed with: patient Discussion included: living will (none), power of employment law attorney (none), code status ( full code) VTE Prophylaxis - General VTE prophylaxis initiated: yes Diagnosis, Assessment Plan Hospital course to date: This is a 81-year-old gentleman who presented to an outside hospital with complaints of chest pains while walking at his home on Thursday. He denies any previous history of coronary artery disease or o ther NE. He was seen and evaluated at [facility]. He was found to have a urinary tract infection with urinary retention and acute kidne y. He was started on dialysis via a left femoral temporary catheter. He underw ent dialysis on Thursday, Thursday. Renal has been consulted During his work-up at outside hospital he underw ent Left heart catheterization showing sever e Left Main 70%. LAD: Proximal diffuse 80% stenosis and then diffuse 60% in the midsegment and on the distal segment, there is focal 70% stenosis. Diagonal branches w ith luminal irregularities. Left circumflex, codominant circulation with pro ximal 80%, mid 80 to 90% and then in the OM, there is proximal 60%, distal le ft circumflex has a 70% stenosis. RCA large and dominant with proximal 4 0% stenosis, mid 60% stenosis and then diffuse 50% stenosi s all the way distally and the PLV and the PDA with luminal irregularities. CV surgery consulted for evaluation for coronary bypass graft. CAROTIDS - No carotid stenosis CT chest complete IMPRESSION: Small bilateral pleural effusions with bibasila r atelectasis. Echo: 1. Left ventricle: The cavity size is at the upp er limits of normal. Wall thickness is mildly increased. Systolic fu nction is severely reduced. The estimated ejection fraction is 30- 34%. Moderate hypokinesis of the entire myocardium. Doppler p arameters are consistent with abnormal left ventricular relax ation (grade 1 diastolic dysfunction). 2. Pericardium, extracardiac: A small pericardia l effusion is identified along the left ventricular free wall, along the right ventricular free wall, and along the right atrial free wall . Assessment/Plan 1) CAD Mutlivessel Will obtain echo,carotids. 2) CLAUDETTE Started dialysis on Creatine 7.3 Renal consulted. 3) BPH- Urinary retention. Waters in place Workup for CABG underway. Will get functional assessment with PT. PFT pending Carotid dopplers- No disease Echo Pending Dialyiss per Renal. Baseline Cr unknown. 07/04 07/04 Doing well today, alert, up in the chair. Denies chest pain Echocardiogram showed LVEF 30 to 34%, mild MR, t rivial TR CT chest images reviewed Encourage I-S and mobilization Creatinine 5.5 from 7.3, good urine output. Pao l US showed bilateral severe hydronephrosis. Plan for HD today and tomorrow Will tentatively schedule patient for surgery on Thursday. Patient seen and plan reviewed with Dr Schwarz 07/05 Remains in a stable condition, denies chest pain BUN 53, creatinine 5.4. Plan for hemodia lysis today and tomorrow for clearance He is also on Lasix 20 mg IV twice daily, urine output 1.1 L overnight We will calculate risk of surgery with STS score Encourage I-S and mobilization Will tentatively schedule patient for surgery on Thursday. Pt seen and plan reviewed with Dr Schwarz 07/06 BUN 36, creatinine 4.4. Plan for hemodialysis to day Awaiting CABG tomorrow Surgery, risks involved, STS score, benefits, co mplications and alternatives were explained to the patient. He acknow ledged understanding and is willing to proceed N.p.o. after midnight Patient seen and plan reviewed with Dr. Schwarz 07/09/22 POD 1 CABG x 5 (MISTRY-LAD, SVG-Ladonna, SVG-OM1< SVG-OM3, S VG-PDA), RC ESPINOZA (RGSV) Patient hemodynamically unstable, on epi at 4, a nd vaso .04, decreased uop overnight- 150cc Started patient on CRRT 2k/3.5 Wean epi as tolerated, Cardiac incex 2.8-3 labs and chest x-ray reviewed, electroly marcie stable, hgb 6.5- transfuse 2 units PRBC On 4l nasal cannula- encourage incentive spirome ter and deep breathing Keep both chest tubes and monitor outputs Glycemic control on insulin drip Cardiac diet Bowel regimen protocol Pain management SCDs for DVT and PPI for GI prophylaxis PT/OT Monitor patient closely in CVICU Plan of care discussed with Dr. Schwarz 07/10/22 POD 2 Patient alert, awake, and oriented, no distres n oted labs and CXR reviewed stable Breathing comfortably on 3l nasal cannula- wean as tolerated to melissa O2 sats > 92 % Encourage I-S use and deep breathing On CRRT- able to remove 2.9L overnight- nephrolo gy following Cardiac index 3.1- wean off epi drip Keep chest tubes for now and monitor outputs Transition to sliding scale insulin- cardiac t Try to get patient out of bed to chair today- am bulate with PT/OT SCDs for DVT prophylaxis Keep patient in CVICU for close monitoring 07/11/22 POD 3 Patient in stable condition, overnight e vents noted- decreased urine output 35 ml last night-started on dopamine gtt for renal perfusion Cardiac index 3.5- epi currently at 2- will disc ontinue today, vasopressin at 0.02, added low dose midodrine 2.5 mg TID, repea t echocardiogram. Renal Following- trial Lasix Patient has Left femoral tem p dialysis cath, Will need tunneled dialysis IJ cath placed if need dialysis. On 5l nasal cannula- wean off as tolerat ed, encourage incentive spirometer and deep breathing Keep left pleural chest tube and monitor output- > 200 cc Tolerating diet, bowel regimen protocol PT/OT- patient out of bed to chair today- encour age ambulation DVT prophylaxis with SCDs Monitor patient closely in CVICU Plan discussed with multidisciplinary team Plan discussed with Dr Schwarz/ Dr Rodríguez 07/12/22 POD 5, Patient resting comfortable. Patient with hx of urinary r etention- After standing today- voided 1.4 L. Needs Urology consult for retention K 5.4- HD in progress. Dr Plaza following. CT output 20- DC today. Pacers remain in place. Patient has Left femoral tem p dialysis cath, Re-evaluate on Thursday if ocean transportation intermediary dialysis needed. Card: Remains in sinus rhythm. Respir: on 7 L NC O2 95% Dispo: Rehab consulted Patient seen and exmained by Dr Rodríguez. Plan discussed with Team 07/13/22 POD 5 Patient with no new complaints. Recieved HD yest erday. Requiring less oxygen, now on 3l nasal cannula- continue to wean off CXR reviewed left apical pne umothorax 4cm/30%, Chest tube drained 140 overnight, placed back on suction to clear pneumo, CT drianed 200cc th is AM. on suction. Labs reviewed- stable, decreased WBC, hgb stable , CR 3.9 Eating welll, +BM UO- 550CC, BP improved on midodrine. Continue PT/OT, ambulation and incentive spirome ter use Rehab folowing Monitor in ICU today Disucssed with Dr Schwarz- Adeola C femoral line and Central line today. DC art line. Will re-eval need for dialysis cath Thursday. Cons ider tunnelled cath if need. Patient seen and examined by Dr Rodríguez. Plan discussed with Care team. 07/14 POD 6 Patient in stable condition, no distress noted Remains on room air, O2 sats > 92%, encourage I- S use and deep breathing CXR shows moderate left apical pneumothorax unch anged CT remained on suction, no airleak no Consult IR for pigtail chest tube placement this morning Cardiac/renal diet Labs reviewed- K 5.1- repeat labs K 4.8 Nephrology following Continue therapy with PT/OT Follow up with urology for waters catheter- Dr Hunter carrera consulted. Monitor in CVICU Plan of care discussed with Dr Schwarz and multi disciplinary team 07/15/22 POD 7 Patient alert, awake, and oriented, no distress, no complaints at this time Breathing comfortable on room air CXR shows resolved pneumothorax LP and pigtail chest tube- no air leak noted, mi nimal output from LP 40 overnight Labs reviewed, K 5.2- corrected, follow up with nephrology to discuss need for dialysis Trend labs this afternoon Bowel regimen, +gas Waetrs catheter discontinued per urology- voiding trial this AM Ambulation and incentive spirometer use encour ed DVT prophylaxis with SCDs Keep in ICU DISP: SNF- Case management Discussed plan of care with multidisciplinary david portillo and Dr. Schwarz 07/16/2022 POD 8 Patient doing well, alert, awake, and oriented O2 sats 93% on room air, encourage I-S CXR stable- no pneumo noted Left pigtail chest tube - no air leak, clamped t his morning, repeat CXR Placement of tunneled dialysis catheter (BioFlo DuraMax 28 cm) yesterday HD treatment done yesterday evening, plan for HD treatment today per nephrology Patient failed voiding trial, waters catheter rep laced- follow up with urology Eating well Continue PT/OT- ambulation Transfer to CV 1 intermediate care unit Discharge planning for SNF- CM following and to set up dialysis chair Patient seen with Dr. Allie louis and discussed plan of care with multidisciplinary team. 07/17/22 Patient in stable condition, no complaints Labs and CXR reviewed- stable Left pigtail chest tube discontinued yesterday- no pneumo noted Remains on room air, no distress- I-S encouraged Cardiac diet, +BM Keep waters per urology f/u outpt, continue floma x HD per nephrology- CM to setup outpt dialysis ch air Awaiting bed availability on CV 1 Discharge planning- [facility] Plan of care discussed with multidisciplinary david portillo and Dr. Schwarz. 07/18 Patient in stable condition, no complaints Remains on room air, no distress- I-S encouraged Epicardial pacing wires discontinued. Limited ec ho to rule out pericardial effusion Keep waters per urology f/u outpt, continue floma x HD per nephrology- CM to setup outpt dialysis ch air Discharge planning- [facility] Plan of care discussed with multidisciplinary david portillo and Dr. Schwarz. 07/19 No new events Echocardiogram done, report pending HD per nephrology- to setup outpt dialysis ch air [facility] Patient seen and plan reviewed with Dr. Schwarz 07/20 Remains in a stable condition. Echocardiogram showed LVEF 30 to 34%, trivial pe ricardial effusion HD schedule per nephrology Awaiting insurance approval for SNF 07/21 No complaints today HD schedule per nephrology Awaiting insurance approval for SNF Encourage I-S and mobilization 07/22 Remains in stable condition Continue current management. Aspirin, Plavix, statin. Did not tolerate metoprolol, on midodrine 5 mg 3 times daily WBCs trending down Awaiting insurance approval for SNF 07/23 No new events Hemodialysis this mornning Hemodynamically stable, sinus rhythm 80s Awaiting placement 07/24 Doing well today No changes in sternal incision Sternal precautions for 6 weeks Awaiting placement 07/25/22 Doing well. Denies CP Dialysis today. Sternum clean dry Labs reveiwed. Life vest ordered. EF 30%- 35% Awaiting placement 07/26/22 Doing well, CT sutures removed. Respir: on Room air 98% Cardiac: remains sinus rhtyhm Life vest at bedside. Awaiting transfer to facility. Labs reviewed. CXR reviewed- stable. encouraghe IS- Deep breathing Out of bed with PT Consultants: nephrology Electronically Signed by Gianna Hoover on 0 07/26/22 at 1338 at 1000 RPT #:[id number] END OF REPORT 2022-07-26 13:20:00-00:00 [facility]ACL [facility] Hospitalist Progress Note REPORT#:[id number] REPORT STATUS: Signed DATE:07/26/22 TIME: 1320 PATIENT: SHERRI ARCE UNIT #: [id number] ROOM/BED: [place] [address] : 42 AGE: 81 SEX: M ATTEND: Jesus Larson MD ADM AUTHOR: Jesus Larson MD * ALL edits or amendments must be made on the [email or web address] document * Subjective Chief complaint: no cp. no sob. Objective General VS/I O: Vital Signs: Date Time Temp Pulse Resp B/P B/P Pulse O2 O2 F low FiO2 Mean Ox Delivery Rate 07/26 1224 97.2 72 12 122/61 81.5 99 Room air 07/26 0832 97 Room air 21 07/26 0811 97.7 87 12 115/62 79.6 97 Room air 07/26 0335 97 Room air 07/26 0327 98.1 82 18 124/67 85.9 94 07/25 2348 98.6 84 18 118/63 81.0 93 07/25 2309 100 Room air 07/25 2014 97.8 86 18 129/67 87 96 Room air 07/25 1952 99 Room air 07/25 1636 97.5 96 18 156/61 92.8 96 07/25 1334 85 28 127/60 86 97 24 hour I O ending at 0700: 07/26 0700 07/25 1900 Intake Total 480 900 Output Total 900 4050 Balance -420 -3150 Intake, Oral 480 900 Number 1 Bowel Movements Output, 1500 Hemodialysis Output, Urine 900 2550 Patient 83.4 kg Weight Weight Standing scale Measurement Method PATIENT WEIGHT: Weight (lb): 183 Weight (oz): 13.85 Weight (kg): 83.400 Physical Exam General appearance: alert, awake Head/Eyes: atraumatic, EOMI, normal conjunctiva/ sclera, normocephalic, PERRLA ENT: moist mucosal membranes Neck: no JVD Cardiovascular: normal heart sounds, regular rat e rhythm Respiratory: aerating well, clear to auscultatio n, symmetric expansion, no distress Abdomen: non-tender, normal bowel sounds , soft, no distention, no guarding, no rebound Genitourinary: urinary catheter Extremities: no edema Musculoskeletal: normal inspection 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: normal speech, no motor deficits, no sensory deficits Skin: intact, normal color, no rash Psychiatry: normal affect Results Radiology data: Laboratory Tests 07/26/22 0400: [Embedded Image Not Available] 07/25/22 0446: [Embedded Image Not Available] Current Medications Sig/Earl Start time Last Medication Dose Route Stop Time Status Admin Midodrine 5 MG 0900,1300,1700 PRN 07/17 2100 AC 07/24 PO 08/16 205 1004 Sodium Chloride 10 ML ASDIR 07/17 1030 AC IV 08/16 1029 Amiodarone HCl 200 MG BID 07/16 899 AC 07/26 PO 08/15 0859 0904 Ipratropium Kersey 500 MCG RTQ2H PRN PRN 07/11 1821 AC 07/10 INH 08/10 1820 1302 Lactulose 20 GM DAILY PRN PRN 07/11 1245 AC 3 PO 08/10 1244 1411 Cyanocobalamin 500 MCG DAILY 07/11 899 AC 07/26 PO 08/10 0859 0904 Ferrous Sulfate 325 MG DAILY 07/11 899 AC 07/26 PO 08/10 0859 0904 Bisacodyl 10 MG ONCE PRN 07/10 1200 AC 07/11 RECTAL 08/09 1159 0928 Atorvastatin Calcium 40 MG 2100 07/09 2100 AC PO 08/08 Clopidogrel Bisulfate 75 MG DAILY 07/09 09 AC 07/26 PO 08/08 0859 0904 Polyethylene Glycol 17 GM DAILY 07/09 09 AC PO 08/08 0859 1008 Pantoprazole 40 MG DAILY@0600 07/09 06 AC 07/09 8 PO 08/08 0559 0622 Aspirin 81 MG DAILY 07/09 0020 AC 07/26 PO 08/08 0019 0904 Docusate Sodium 100 MG BID 07/08 2100 AC 07/26 PO 08/07 2058 0904 Sennosides 17.2 MG BEDTIME 07/08 2099 AC 07/24 PO 08/07 Ipratropium Kersey 500 MCG RTQ4H 07/08 1900 AC 07/26 INH 08/07 1859 1141 Acetaminophen 650 MG Q4H PRN PRN 07/08 1830 AC 0 07/24 PO 08/07 1829 1005 Acetaminophen 650 MG Q4H PRN PRN 07/08 1830 AC RECTAL 08/07 1829 Dextrose/Water 125 ML ASDIR PRN 07/08 1830 CKD IV 08/07 1829 Dextrose/Water 250 ML ASDIR PRN 07/08 1830 CKD IV 08/07 1829 Glucagon 1 MG ASDIR PRN 07/08 1830 AC IM 08/07 1829 Magnesium Sulfate 100 ML ASDIR PRN 07/08 1830 AC IV 08/07 1829 Magnesium Sulfate 50 ML ASDIR PRN 07/08 1830 AC 07/26 IV 08/07 1829 0904 Magnesium Sulfate/ 100 ML ASDIR PRN 07/08 1830 A C 07/16 Dextrose IV 08/07 1829 0650 Ondansetron HCl 4 MG Q6H PRN PRN 07/08 1830 AC IV 08/07 1829 Albumin Human 12.5 GM ASDIR PRN 07/03 1200 AC IV 08/03 1155 0915 Heparin Sodium 3,000 UNIT ASDIR PRN 07/03 1200 A C 07/25 (Porcine) DIALYSIS 08/02 1159 1231 Lidocaine HCl 0.5 ML ASDIR PRN 07/03 1200 CKD I-DERMAL 08/03 1155 Mannitol 12.5 GM ASDIR PRN 07/03 1200 AC IV 08/03 1155 Sodium Chloride 2,000 ML ASDIR PRN 07/03 1200 AC 07/25 IV 08/03 1155 1047 Tamsulosin HCl 0.4 MG BEDTIME 07/02 2144 AC 07/09 7 PO 08/01 Laboratory Tests: 07/26 07/26 0400 0400 Chemistry Sodium (134 - 147 mEq/L) 142 Potassium (3.4 - 5.0 mEq/L) 4.4 Chloride (100 - 108 mEq/L) 111 H Carbon Dioxide (21 - 33 mEq/l) 25 Anion Gap (0 - 20) 10 BUN (7 - 18 mg/dL) 32 H Creatinine (0.6 - 1.3 mg/dL) 3.5 H Glomerular Filtr Rate (70 - 80) 17.0 L Glucose (70 - 110 mg/dL) 99 Calcium (8.0 - 10.5 mg/dL) 8.3 Magnesium (1.80 - 2.40 mg/dL) 1.76 L Hematology WBC (4.5 - 11.0 x10 3/uL) 10.8 RBC (4.00 - 5.60 x10 6/uL) 2.72 L Hgb (12.5 - 16.9 g/dL) 8.0 L Hct (37.5 - 50.7 %) 26.1 L MCV (81.0 - 99.0 fL) 96.0 MCH (27.0 - 33.0 pg) 29.4 MCHC (33.0 - 37.0 g/dL) 30.7 L RDW (11.5 - 14.5 %) 16.1 H Plt Count (150 - 400 x10 3/uL) 316 MPV (7.0 - 9.0 fL) 10.4 H Neut % (Auto) (56.0 - 77.0 %) 70.0 Lymph % (Auto) (14.0 - 32.0 %) 10.4 L [place] % (Auto) (4.8 - 9.0 %) 7.5 Eos % (Auto) (0.3 - 3.7 %) 10.7 H Baso % (Auto) (0.0 - 2.0 %) 0.7 Neut # (Auto) (2.0 - 7.6 x10 3/uL) 7.52 Lymph # (Auto) (1.0 - 3.8 x10 3/uL) 1.12 [place] # (Auto) (0.1 - 0.8 x10 3/uL) 0.81 H Eos # (Auto) (0.0 - 0.2 x10 3/uL) 1.15 H Baso # (Auto) (0.0 - 0.2 x10 3/uL) 0.08 Abs Immat Gran (auto) (0.00 - 0.03 x10 3/uL) 0. 07 H Add Manual Diff NO Immature Gran % (0.0 - 2.0 %) 0.7 Nucleated RBC % (0 - 0 %) 0.0 Nucleated RBCs # (Man) (0.0 - 0.1 x10 3/uL) 0.0 0 Treatment Prophylaxis Treatment Prophylaxis Drain(s)/tube(s): Drain(s)/tube(s): chest Diagnosis, Assessment Plan Consultants: nephrology Free Text DxA P Notes Free text DxA P notes: NSTEMI, CAD (coronary artery disease), S/P CABG X 5 ON 07/08- STABLE, CARD/CTS SEEN, TX TO SNF ON THURSDAY, EF 30-35% patient presented with NSTEMI and found to hve severe CAD. Cardiac cath shows: Left Main - Distal 70% LAD - Proximal 80% with another 60% and 70% les sions Cir - Proximal 80%,mid 80-90%, Distal 70% and O M 60% RCA - large dominant with proximal 40%, Mid 60% . Echo: ef 30-34%, mod hypokinesis of entire myoc ardium, grade 1 diastolic dysfunction Patient on ASA, plavix, BB and Statin on amiodarone, Beta-tomas as tolerated for lo w BP, Acute systolic heart failure - STABLE, NO CHARLY/BB DUE TO LOW BP, ON MIDODRINE PRN , EF 30-35% Echocardiac with estimated LVEF of 30 to 34% wi grade 1 diastolic dysfunction -s/p Lasix 20 mg twice daily 07/05 -on metoprolol 12.5 mg bid on hold now, BP low -no ACEI/ spironolactione for CLAUDETTE -Start GDMT prior to discharge -Await LifeVest 07/22 - LIFEVEST at bedside. CLAUDETTE (acute kidney injury) DUE TO POST-OBS NEPHRO REMY - ON HD MWF, RENAL/UROL SEEN, NEEDS SNF WITH DIALYSIS ACCESS, CONT WATERS , FLOMAX, CAP SEWER FROM 7.0 TO 4.3 No prior Hx of renal disease. hx of BPH and casimiro ated with Fosamax w/o improvement nd continue to h ave difficulty urinating. On admission was found to be on acute renal filaure and had received HD tw ice prior to arrival here ( thursday and thursday). 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 BPH (benign prostatic hyperplasia) - ABOVE, O N WATERS Started on Flomax at the previous hospital, thais l continue with it. Waters catheter in place, continue Waters cathete r as per nephrology 07/05 Goiter Hx of Goiter and surgical resection. TSH 3.33, within normal limits. Patient is not on Thyroid medication. RXT LEUKOCYTOSIS - STABLE, NO INFECTION DEBILITY - OT/PT SEEN, SNF TX SOON UTI continue Rocephin for empiric treatment pend ing results of urine culture No growth for 48 hours DVT prophylaxis: Heparin 5000 units every 8 hour s Diet: Cardiac diet CODE STATUS: Full code Disposition: Status post CABG x5 on 07/09, hemodia lysis as per nephrology. Worked with PT in his room, on 2 L oxygen via na cj cannula. PT/OT on board. Await LifeVest and SNF placement 07/22- awaiting SNF. lifevest arranged. 07/23 stable, awaiting SNF placement 07/24- awaiting SNF 07/25 awaiting SNF, discussed with case managemen t 07/26 - awaiting SNF Quality: Gen Med Crit Care VTE Prophylaxis VTE prophylaxis initiated: yes Advanced Care Plan 65 or Older Discussed with: patient Discussion included: living will (none), power of employment law attorney (none), code status ( full code) Electronically Signed by Jesus Larson MD on 07/09 01/28 at 1328 RPT #:[id number] END OF REPORT 2022-07-26 06:56:00-00:00 [facility] Rehab Progress Note REPORT#:[id number] REPORT STATUS: Signed DATE:07/26/22 TIME: 655 PATIENT: SHERRI ARCE UNIT #: [id number] ROOM/BED: [place] [id number] : 42 AGE: 81 SEX: M ATTEND: Jesus Larson MD ADM AUTHOR: Magdaleno Washburn * ALL edits or amendments must be made on the [email or web address] document * Subjective Chief complaint: Rehab follow-up Doing very well Denies pain or sob Pleasant Denies NAIK/N/V/D/CP 14 systems reviewed and neg. except that above. Objective General VS: Vital Signs: Date Time Temp Pulse Resp B/P B/P Pulse O2 O2 Flow FiO2 Mean Ox Delivery Rate 07/26 0335 97 Room air 07/26 0327 98.1 82 18 124/67 85.9 94 07/25 2348 98.6 84 18 118/63 81.0 93 07/25 2309 100 Room air 07/25 2014 97.8 86 18 129/67 87 96 Room air 07/25 1952 99 Room air 07/25 1636 97.5 96 18 156/61 92.8 96 07/25 1334 85 28 127/60 86 97 07/25 1232 97.7 79 22 134/65 98 Room air 07/25 1130 73 33 123/62 87 97 07/25 0853 97.3 80 18 125/61 0.0 100 07/25 0841 97.5 79 22 124/54 92 Room air 07/25 0800 Room air PATIENT WEIGHT: Weight (lb): 183 Weight (oz): 13.85 Weight (kg): 83.400 Medications: Active Meds + DC'd Last 24 Hrs Midodrine (PROAMATINE) 5 MG 0900,1300,1700 PRN P O Sodium Chloride (SODIUM CHLORIDE) 10 ML ASDIR I V Amiodarone HCl (CORDARONE) 200 MG BID PO Ipratropium Kersey (ATROVENT) 500 MCG RTQ2H PRN PRN INH Lactulose (LACTULOSE) 20 GM DAILY PRN PRN PO Cyanocobalamin (Vitamin B-12 500 mcg tab) 500 MC G DAILY PO Ferrous Sulfate (FERROUS SULFATE) 325 MG DAILY P O Bisacodyl (DULCOLAX) 10 MG ONCE PRN RECTAL Atorvastatin Calcium (LIPITOR) 40 MG 2100 PO Clopidogrel Bisulfate (Plavix) 75 MG DAILY PO Polyethylene Glycol (MIRALAX) 17 GM DAILY PO Pantoprazole (PROTONIX) 40 MG DAILY@0600 PO Aspirin (ASPIRIN) 81 MG DAILY PO Docusate Sodium (COLACE) 100 MG BID PO Sennosides (Senna Lax 8.6 MG TABLET) 17.2 MG BED TIME PO Ipratropium Kersey (ATROVENT) 500 MCG RTQ4H INH Acetaminophen (TYLENOL) 650 MG Q4H PRN PRN PO Acetaminophen (TYLENOL) 650 MG Q4H PRN PRN RECTA L Dextrose/Water (DEXTROSE 10% IN WATER) 125 ML DIR PRN IV (CKD) Dextrose/Water (DEXTROSE 10% IN WATER) 250 ML DIR PRN IV (CKD) Glucagon (GLUCAGON) 1 MG ASDIR PRN IM Magnesium Sulfate (MAGNESIUM SULFATE 4GM/SWFI 10 0ML) 100 ML ASDIR PRN IV Magnesium Sulfate (MAGNESIUM SULFATE 2GM/SWFI 50 ML) 50 ML ASDIR PRN IV Magnesium Sulfate/Dextrose (MAGNESIUM SULFATE 1G M/D5W 100ML) 100 ML ASDIR PRN IV Ondansetron HCl (ZOFRAN) 4 MG Q6H PRN PRN IV Albumin Human (ALBUMINAR-25%) 12.5 GM ASDIR PRN IV Heparin Sodium (Porcine) (HEPARIN SODIUM) 3,000 UNIT ASDIR PRN DIALYSIS Lidocaine HCl (LIDOCAINE HCL/PF) 0.5 ML ASDIR NV N I-DERMAL (CKD) Mannitol (Mannitol 20%) 12.5 GM ASDIR PRN IV Sodium Chloride (SODIUM CHLORIDE 0.9%) 2,000 ML ASDIR PRN IV Tamsulosin HCl (Flomax 0.4 mg) 0.4 MG BEDTIME PO Functional Progress Functional progress: Weightbearing: STERNAL Ambulation Distance: 500 FT Progression: Forward Backward Lateral, Right Lateral, Left Assistance Level: Supervision or Set-up Gait Deviations: SLOW Base of Support - Narrow Advanced Progression: Yes Stairs: 11-20 Assistance Level: Supervision or Set-up Effects of Treatment: Cardio tolerance improve d Function Improved Gait quality improved Post TX Precautions: In Bed, rails Up Call Light in Reach Nursing Notified Review Plan of Care: Yes PT charges: Gait Training [id number] Gait Cmt: PT PERFORMING AMB NO AD 500 FT SPV TO LERATING WELL, SITTING AFTERWARD D/T FATIGUE. PT THEN ABLE TO GO UP/DOWN 12 STEPS WITH LEFT RAIL SBA. PT RETURNED TO ROOM RN AWARE PT SIGNING OFF AT THIS TIME, pt MEETING ALL GOALS BEING MOD I WITH NO AD WITH 500 FT AMB, MOD I WITH BED MOBILITY AND TRANSFERS If this is the patient's last treatment, this e ntry serves as the discharge summary: Y Start Time: 1145 Stop Time: 1214 Treatment Time : ( minutes) 0:29 Completed by: Rory Aiken . BED MOBILITY: Yes Rolling Right/Left: Modified Door Supine to Sit: Modified Door Sit to Supine: Modified Door TRANSFERS: Yes Bed to/from chair: Modified Door Sit to/from stand: Modified Door Physical Exam General appearance: alert, awake Psych: alert, oriented x 3 HEENT: anicteric, sclera clear Neck: supple, no JVD Cardiovascular: regular rate rhythm, S1/S2 Respiratory: aerating well, clear bilaterally Abdomen: bowel sounds present, non-distended, so ft Skin: intact, no rash Musculoskeletal - general: Musculoskeletal - general: joints normal, norm al muscle mass, normal tone 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ALTH: alert, oriented X 3, CNII-XII intact Results Findings/Data: Laboratory Tests: 07/26 07/26 0400 0400 Chemistry Sodium (134 - 147 mEq/L) 142 Potassium (3.4 - 5.0 mEq/L) 4.4 Chloride (100 - 108 mEq/L) 111 H Carbon Dioxide (21 - 33 mEq/l) 25 Anion Gap (0 - 20) 10 BUN (7 - 18 mg/dL) 32 H Creatinine (0.6 - 1.3 mg/dL) 3.5 H Glomerular Filtr Rate (70 - 80) 17.0 L Glucose (70 - 110 mg/dL) 99 Calcium (8.0 - 10.5 mg/dL) 8.3 Magnesium (1.80 - 2.40 mg/dL) 1.76 L Hematology WBC (4.5 - 11.0 x10 3/uL) 10.8 RBC (4.00 - 5.60 x10 6/uL) 2.72 L Hgb (12.5 - 16.9 g/dL) 8.0 L Hct (37.5 - 50.7 %) 26.1 L MCV (81.0 - 99.0 fL) 96.0 MCH (27.0 - 33.0 pg) 29.4 MCHC (33.0 - 37.0 g/dL) 30.7 L RDW (11.5 - 14.5 %) 16.1 H Plt Count (150 - 400 x10 3/uL) 316 MPV (7.0 - 9.0 fL) 10.4 H Neut % (Auto) (56.0 - 77.0 %) 70.0 Lymph % (Auto) (14.0 - 32.0 %) 10.4 L [place] % (Auto) (4.8 - 9.0 %) 7.5 Eos % (Auto) (0.3 - 3.7 %) 10.7 H Baso % (Auto) (0.0 - 2.0 %) 0.7 Neut # (Auto) (2.0 - 7.6 x10 3/uL) 7.52 Lymph # (Auto) (1.0 - 3.8 x10 3/uL) 1.12 [place] # (Auto) (0.1 - 0.8 x10 3/uL) 0.81 H Eos # (Auto) (0.0 - 0.2 x10 3/uL) 1.15 H Baso # (Auto) (0.0 - 0.2 x10 3/uL) 0.08 Abs Immat Gran (auto) (0.00 - 0.03 x10 3/uL) 0 .07 H Add Manual Diff NO Immature Gran % (0.0 - 2.0 %) 0.7 Nucleated RBC % (0 - 0 %) 0.0 Nucleated RBCs # (Man) (0.0 - 0.1 x10 3/uL) 0.0 0 Diagnosis, Assessment Plan Free Text A P: Non-STEMI Multivessel CAD S/p CABG x5 Physical deconditioning Impaired mobility and gait Postoperative anemia Dyslipidemia Hypertension CLAUDETTE Acute systolic heart failure Hemodynamic issues postop Leukocytosis trending down Pleural effusion and atelectasis Plan: Continue PT/OT Out of bed to chair Work on strength, bed mobility, transfers, gait Sternal precaution Increase endurance Fall precautions Monitor p.o. intake and nutrition Strict decubitus precautions Monitor anemia. Persistent left pneumothorax. IR guided pigtail place. CXR shows expansion of the lung Urology consulted -Pt on Flomax Nephrology managing renal issues and elevated K+ Utilize IS to reduce atelectasis Advance therapies as tolerated Pt lives alone and has 5 to 6 stairs to enter ho use SNF order has been placed. Will require insurance approval for SNF , dialysis clinic acceptance, approval for LifeVest prior to discharge Total time was 33 minutes > 50% with patient per forming physical examination, discussing plan of care, goals, therapies, progr ess, medications, labs, SNF. All questions answered Rehab attestation: . Electronically Signed by Magdaleno Washburn on 0 07/26/22 at 1949 RPT #:[id number] END OF REPORT 2022-07-25 15:40:00-00:00 [facility] Hospitalist Progress Note REPORT#:[id number] REPORT STATUS: Signed DATE:07/25/22 TIME: 1540 PATIENT: SHERRI ARCE UNIT #: [id number] ROOM/BED: [place] [address] : 42 AGE: 81 SEX: M ATTEND: Maryam Crawford DO ADM AUTHOR: Los Crawford DO * ALL edits or amendments must be made on the [email or web address]/computer document * Subjective Chief complaint: No new complaints Objective General VS/I O: Vital Signs: Date Time Temp Pulse Resp B/P B/P Pulse O2 O2 F low FiO2 Mean Ox Delivery Rate 07/25 1334 85 28 127/60 86 97 07/25 1232 97.7 79 22 134/65 98 Room air 07/25 1130 73 33 123/62 87 97 07/25 0853 97.3 80 18 125/61 0.0 100 07/25 0841 97.5 79 22 124/54 92 Room air 07/25 0800 Room air 07/25 0342 97.9 87 22 123/62 0.0 96 07/24 2306 98.1 85 21 119/65 0.0 99 07/24 2139 96 Room air 07/24 2015 98.1 88 20 146/70 0.0 96 07/24 1636 97.3 75 20 143/76 98.0 99 24 hour I O ending at 0700: 07/25 0700 07/24 1900 Intake Total Output Total 800 Balance -800 Output, Urine 800 PATIENT WEIGHT: Weight (lb): 187 Weight (oz): 9.81 Weight (kg): 85.100 Physical Exam General appearance: alert, awake, oriented Head/Eyes: atraumatic, EOMI, normal conjunctiva/ sclera, normocephalic, PERRLA ENT: moist mucosal membranes Neck: no JVD Cardiovascular: normal heart sounds, regular rat e rhythm Respiratory: aerating well, clear to auscultatio n, symmetric expansion, no distress Abdomen: non-tender, normal bowel sounds , soft, no distention, no guarding, no rebound Genitourinary: urinary catheter Extremities: no edema Musculoskeletal: normal inspection 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ALTH: normal speech, no motor deficits, no sensory deficits Skin: intact, normal color, no rash Psychiatry: normal affect Treatment Prophylaxis Treatment Prophylaxis Drain(s)/tube(s): Drain(s)/tube(s): chest Diagnosis, Assessment Plan Consultants: nephrology Free Text DxA P Notes Free text DxA P notes: NSTEMI, CAD (coronary artery disease), S/P CABG X 5 ON 07/08- STABLE, CARD/CTS SEEN, TX TO SNF ON THURSDAY, EF 30-35% patient presented with NSTEMI and found to hve severe CAD. Cardiac cath shows: Left Main - Distal 70% LAD - Proximal 80% with another 60% and 70% les sions Cir - Proximal 80%,mid 80-90%, Distal 70% and O M 60% RCA - large dominant with proximal 40%, Mid 60% . Echo: ef 30-34%, mod hypokinesis of entire myoc ardium, grade 1 diastolic dysfunction Patient on ASA, plavix, BB and Statin on amiodarone, Beta-tomas as tolerated for lo w BP, Acute systolic heart failure - STABLE, NO CHARLY/BB DUE TO LOW BP, ON MIDODRINE PRN , EF 30-35% Echocardiac with estimated LVEF of 30 to 34% wi grade 1 diastolic dysfunction -s/p Lasix 20 mg twice daily 07/05 -on metoprolol 12.5 mg bid on hold now, BP low -no ACEI/ spironolactione for CLAUDETTE -Start GDMT prior to discharge -Await Life[facility]est 07/22 - LIFEVEST at bedside. CLAUDETTE (acute kidney injury) DUE TO POST-OBS NEPHRO REMY - ON HD MWF, RENAL/UROL SEEN, NEEDS SNF WITH DIALYSIS ACCESS, CONT WATERS , FLOMAX, CAP SEWER FROM 7.0 TO 4.3 No prior Hx of renal disease. hx of BPH and casimiro ated with Fosamax w/o improvement nd continue to h ave difficulty urinating. On admission was found to be on acute renal filaure and had received HD tw ice prior to arrival here ( thursday and thursday). 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 BPH (benign prostatic hyperplasia) - ABOVE, O N WATERS Started on Flomax at the previous hospital, thais l continue with it. Waters catheter in place, continue Waters cathete r as per nephrology 07/05 Goiter Hx of Goiter and surgical resection. TSH 3.33, within normal limits. Patient is not on Thyroid medication. RXT LEUKOCYTOSIS - STABLE, NO INFECTION DEBILITY - OT/PT SEEN, SNF TX SOON UTI continue Rocephin for empiric treatment pend ing results of urine culture No growth for 48 hours DVT prophylaxis: Heparin 5000 units every 8 hour s Diet: Cardiac diet CODE STATUS: Full code Disposition: Status post CABG x5 on 07/09, hemodia lysis as per nephrology. Worked with PT in his room, on 2 L oxygen via na cj cannula. PT/OT on board. Await LifeVest and SNF placement 07/22- awaiting SNF. lifevest arranged. 07/23 stable, awaiting SNF placement 07/24- awaiting SNF 07/25 awaiting SNF, discussed with case managemen tiffany Quality: Gen Med Crit Care VTE Prophylaxis VTE prophylaxis initiated: yes Advanced Care Plan 65 or Older Discussed with: patient Discussion included: living will (none), power of employment law attorney (none), code status ( full code) at [address] [facility] #:[id number] END OF REPORT 2022-07-25 14:58:00-00:00 [facility] Cardiothoracic Surgery Prog REPORT#:[id number] REPORT STATUS: Signed DATE:07/25/22 TIME: 1458 PATIENT: SHERRI ARCE UNIT #: [id number] ROOM/BED: [place] [id number] : 42 AGE: 81 SEX: M ATTEND: Jesus Larson MD ADM AUTHOR: Gianna Hoover * ALL edits or amendments must be made on the [email or web address] document * General Post-op: day 16 Status post: 07/08/22 CABG x 5 (MISTRY-LAD, SVG-Ladonna, SVG-OM1< SVG-OM3, SVG-PDA) ALAA EVH (RGSV) Subjective Chief complaint: s/p CABG no complaints Review of Systems Constitutional: Denies: chills, fever, malaise. Allergy/Immun: Denies: allergic reaction. Respiratory: Denies: SOB. Cardiovascular: Denies: chest pain, palpitations. GI: Denies: abdominal pain, nausea, vomiting. : Denies: dysuria, hematuria. Heme: Denies: bleeding. Neuro: Denies: dizziness, headache, vision change. All systems rev neg: except as marked Objective General VS/I O Last Documented: Result Date Time Pulse Ox 97 07/25 1334 B/P 127/60 07/25 1334 B/P Mean 86 07/25 1334 Pulse 85 07/25 1334 Resp 28 07/25 1334 O2 Delivery Room air 07/25 1232 Temp 97.7 07/25 1232 FiO2 21 07/24 1244 O2 Flow Rate 3 07/14 1151 24 hour I O ending at 0700: 07/25 0700 07/24 1900 Intake Total Output Total 800 Balance -800 Output, Urine 800 PATIENT WEIGHT: Weight (lb): 187 Weight (oz): 9.81 Weight (kg): 85.100 Physical Exam General appearance: alert, awake, oriented Wound/incision: Location: sternal Site condition: edges approximated, incision in tact, no drainage, no ecchymosis, no erythema HEENT: anicteric, mucosal membranes moist Neck: supple/no meningismus Cardiovascular: normal heart sounds, regular rat e rhythm Respiratory: aerating well, symmetric expansion, no distress Abdomen: soft, non-tender, no distention Genitourinary: waters Extremities: moves all 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ALTH: alert, oriented X 3, normal speech, n o motor deficits Psychiatry: normal affect, normal mood Treatment Prophylaxis Treatment Prophylaxis Drain(s)/tube(s): Drain(s)/tube(s): chest Quality: Trauma Gen Surg Advanced Care Plan 65 or Older Discussed with: patient Discussion included: living will (none), power of employment law attorney (none), code status ( full code) VTE Prophylaxis - General VTE prophylaxis initiated: yes Diagnosis, Assessment Plan Hospital course to date: This is a 81-year-old gentleman who presented to an outside hospital with complaints of chest pains while walking at his home on Thursday. He denies any previous history of coronary artery disease or o ther NE. He was seen and evaluated at [facility]. He was found to have a urinary tract infection with urinary retention and acute kidne y. He was started on dialysis via a left femoral temporary catheter. He underw ent dialysis on Thursday, Thursday. Renal has been consulted During his work-up at outside hospital he underw ent Left heart catheterization showing sever e Left Main 70%. LAD: Proximal diffuse 80% stenosis and then diffuse 60% in the midsegment and on the distal segment, there is focal 70% stenosis. Diagonal branches w ith luminal irregularities. Left circumflex, codominant circulation with pro ximal 80%, mid 80 to 90% and then in the OM, there is proximal 60%, distal le ft circumflex has a 70% stenosis. RCA large and dominant with proximal 4 0% stenosis, mid 60% stenosis and then diffuse 50% stenosi s all the way distally and the PLV and the PDA with luminal irregularities. CV surgery consulted for evaluation for coronary bypass graft. CAROTIDS - No carotid stenosis CT chest complete IMPRESSION: Small bilateral pleural effusions with bibasila r atelectasis. Echo: 1. Left ventricle: The cavity size is at the upp er limits of normal. Wall thickness is mildly increased. Systolic fu nction is severely reduced. The estimated ejection fraction is 30- 34%. Moderate hypokinesis of the entire myocardium. Doppler p arameters are consistent with abnormal left ventricular relax ation (grade 1 diastolic dysfunction). 2. Pericardium, extracardiac: A small pericardia l effusion is identified along the left ventricular free wall, along the right ventricular free wall, and along the right atrial free wall . Assessment/Plan 1) CAD Mutlivessel Will obtain echo,carotids. 2) CLAUDETTE Started dialysis on Creatine 7.3 Renal consulted. 3) BPH- Urinary retention. Waters in place Workup for CABG underway. Will get functional assessment with PT. PFT pending Carotid dopplers- No disease Echo Pending Dialyiss per Renal. Baseline Cr unknown. 07/04 07/04 Doing well today, alert, up in the chair. Denies chest pain Echocardiogram showed LVEF 30 to 34%, mild MR, t rivial TR CT chest images reviewed Encourage I-S and mobilization Creatinine 5.5 from 7.3, good urine output. Pao l US showed bilateral severe hydronephrosis. Plan for HD today and tomorrow Will tentatively schedule patient for surgery on Thursday. Patient seen and plan reviewed with Dr Schwarz 07/05 Remains in a stable condition, denies chest pain BUN 53, creatinine 5.4. Plan for hemodia lysis today and tomorrow for clearance He is also on Lasix 20 mg IV twice daily, urine output 1.1 L overnight We will calculate risk of surgery with STS score Encourage I-S and mobilization Will tentatively schedule patient for surgery on Thursday. Pt seen and plan reviewed with Dr Schwarz 07/06 BUN 36, creatinine 4.4. Plan for hemodialysis to day Awaiting CABG tomorrow Surgery, risks involved, STS score, benefits, co mplications and alternatives were explained to the patient. He acknow ledged understanding and is willing to proceed N.p.o. after midnight Patient seen and plan reviewed with Dr. Schwarz 07/09/22 POD 1 CABG x 5 (MISTRY-LAD, SVG-Ladonna, SVG-OM1< SVG-OM3, S VG-PDA), RC ESPINOZA (RGSV) Patient hemodynamically unstable, on epi at 4, a nd vaso .04, decreased uop overnight- 150cc Started patient on CRRT 2k/3.5 Wean epi as tolerated, Cardiac incex 2.8-3 labs and chest x-ray reviewed, electroly marcie stable, hgb 6.5- transfuse 2 units PRBC On 4l nasal cannula- encourage incentive spirome ter and deep breathing Keep both chest tubes and monitor outputs Glycemic control on insulin drip Cardiac diet Bowel regimen protocol Pain management SCDs for DVT and PPI for GI prophylaxis PT/OT Monitor patient closely in CVICU Plan of care discussed with Dr. Schwarz 07/10/22 POD 2 Patient alert, awake, and oriented, no distres n oted labs and CXR reviewed stable Breathing comfortably on 3l nasal cannula- wean as tolerated to melissa O2 sats > 92 % Encourage I-S use and deep breathing On CRRT- able to remove 2.9L overnight- nephrolo gy following Cardiac index 3.1- wean off epi drip Keep chest tubes for now and monitor outputs Transition to sliding scale insulin- cardiac t Try to get patient out of bed to chair today- am bulate with PT/OT SCDs for DVT prophylaxis Keep patient in CVICU for close monitoring 07/11/22 POD 3 Patient in stable condition, overnight e vents noted- decreased urine output 35 ml last night-started on dopamine gtt for renal perfusion Cardiac index 3.5- epi currently at 2- will disc ontinue today, vasopressin at 0.02, added low dose midodrine 2.5 mg TID, repea t echocardiogram. Renal Following- trial Lasix Patient has Left femoral tem p dialysis cath, Will need tunneled dialysis IJ cath placed if need dialysis. On 5l nasal cannula- wean off as tolerat ed, encourage incentive spirometer and deep breathing Keep left pleural chest tube and monitor output- > 200 cc Tolerating diet, bowel regimen protocol PT/OT- patient out of bed to chair today- encour age ambulation DVT prophylaxis with SCDs Monitor patient closely in CVICU Plan discussed with multidisciplinary team Plan discussed with Dr Schwarz/ Dr Rodríguez 07/12/22 POD 5, Patient resting comfortable. Patient with hx of urinary r etention- After standing today- voided 1.4 L. Needs Urology consult for retention K 5.4- HD in progress. Dr Plaza following. CT output 20- DC today. Pacers remain in place. Patient has Left femoral tem p dialysis cath, Re-evaluate on Thursday if ocean transportation intermediary dialysis needed. Card: Remains in sinus rhythm. Respir: on 7 L NC O2 95% Dispo: Rehab consulted Patient seen and exmained by Dr Rodríguez. Plan discussed with Team 07/13/22 POD 5 Patient with no new complaints. Recieved HD yest erday. Requiring less oxygen, now on 3l nasal cannula- continue to wean off CXR reviewed left apical pne umothorax 4cm/30%, Chest tube drained 140 overnight, placed back on suction to clear pneumo, CT drianed 200cc th is AM. on suction. Labs reviewed- stable, decreased WBC, hgb stable , CR 3.9 Eating welll, +BM UO- 550CC, BP improved on midodrine. Continue PT/OT, ambulation and incentive spirome ter use Rehab folowing Monitor in ICU today Disucssed with Dr Schwarz- Adeola C femoral line and Central line today. DC art line. Will re-eval need for dialysis cath Thursday. Cons ider tunnelled cath if need. Patient seen and examined by Dr Rodríguez. Plan discussed with Care team. 07/14 POD 6 Patient in stable condition, no distress noted Remains on room air, O2 sats > 92%, encourage I- S use and deep breathing CXR shows moderate left apical pneumothorax unch anged CT remained on suction, no airleak no Consult IR for pigtail chest tube placement this morning Cardiac/renal diet Labs reviewed- K 5.1- repeat labs K 4.8 Nephrology following Continue therapy with PT/OT Follow up with urology for waters catheter- Dr Hunter carrera consulted. Monitor in CVICU Plan of care discussed with Dr Schwarz and multi disciplinary team 07/15/22 POD 7 Patient alert, awake, and oriented, no distress, no complaints at this time Breathing comfortable on room air CXR shows resolved pneumothorax LP and pigtail chest tube- no air leak noted, mi nimal output from LP 40 overnight Labs reviewed, K 5.2- corrected, follow up with nephrology to discuss need for dialysis Trend labs this afternoon Bowel regimen, +gas Waters catheter discontinued per urology- voiding trial this AM Ambulation and incentive spirometer use encour ed DVT prophylaxis with SCDs Keep in ICU DISP: SNF- Case management Discussed plan of care with multidisciplinary david portillo and Dr. Schwarz 07/16/2022 POD 8 Patient doing well, alert, awake, and oriented O2 sats 93% on room air, encourage I-S CXR stable- no pneumo noted Left pigtail chest tube - no air leak, clamped t his morning, repeat CXR Placement of tunneled dialysis catheter (BioFlo DuraMax 28 cm) yesterday HD treatment done yesterday evening, plan for HD treatment today per nephrology Patient failed voiding trial, waters catheter rep laced- follow up with urology Eating well Continue PT/OT- ambulation Transfer to CV 1 intermediate care unit Discharge planning for SNF- CM following and to set up dialysis chair Patient seen with Dr. Allie louis and discussed plan of care with multidisciplinary team. 07/17/22 Patient in stable condition, no complaints Labs and CXR reviewed- stable Left pigtail chest tube discontinued yesterday- no pneumo noted Remains on room air, no distress- I-S encouraged Cardiac diet, +BM Keep waters per urology f/u outpt, continue floma x HD per nephrology- CM to setup outpt dialysis ch air Awaiting bed availability on CV 1 Discharge planning- SNF Plan of care discussed with multidisciplinary david portillo and Dr. Schwarz. 07/18 Patient in stable condition, no complaints Remains on room air, no distress- I-S encouraged Epicardial pacing wires discontinued. Limited ec ho to rule out pericardial effusion Keep waters per urology f/u outpt, continue floma x HD per nephrology- CM to setup outpt dialysis ch air Discharge planning- SNF Plan of care discussed with multidisciplinary david portillo and Dr. Schwarz. 07/19 No new events Echocardiogram done, report pending HD per nephrology- to setup outpt dialysis [facility] air [facility] Patient seen and plan reviewed with Dr. Schwarz 07/20 Remains in a stable condition. Echocardiogram showed LVEF 30 to 34%, trivial pe ricardial effusion HD schedule per nephrology Awaiting insurance approval for SNF 07/21 No complaints today HD schedule per nephrology Awaiting insurance approval for SNF Encourage I-S and mobilization 07/22 Remains in stable condition Continue current management. Aspirin, Plavix, statin. Did not tolerate metoprolol, on midodrine 5 mg 3 times daily WBCs trending down Awaiting insurance approval for SNF 07/23 No new events Hemodialysis this mornning Hemodynamically stable, sinus rhythm 80s Awaiting placement 07/24 Doing well today No changes in sternal incision Sternal precautions for 6 weeks Awaiting placement 07/25/22 Doing well. Denies CP Dialysis today. Sternum clean dry Labs reveiwed. Life vest ordered. EF 30%- 35% Awaiting placement Consultants: nephrology Electronically Signed by Gianna Hoover on 0 07/25/22 at 1501 at 1008 RPT #:[id number] END OF REPORT 2022-07-25 10:09:00-00:00 [facility]ACL [facility] Nephrology Progress Note REPORT#:[id number] REPORT STATUS: Signed DATE:07/25/22 TIME: 1009 PATIENT: SHERRI ARCE UNIT #: [id number] ROOM/BED: [place] [address] : 42 AGE: 81 SEX: M ATTEND: Maryam Crawford DO ADM AUTHOR: Evelina Plaza MD * ALL edits or amendments must be made on the [email or web address] document * Subjective Chief complaint: Feeling okay and has no complaints at this time. Objective General Medications Active Meds + DC'd Last 24 Hrs Midodrine (PROAMATINE) 5 MG 0900,1300,1700 PRN P O Sodium Chloride (SODIUM CHLORIDE) 10 ML ASDIR IV Amiodarone HCl (CORDARONE) 200 MG BID PO Ipratropium Kersey (ATROVENT) 500 MCG RTQ2H PRN PRN INH Lactulose (LACTULOSE) 20 GM DAILY PRN PRN PO Cyanocobalamin (Vitamin B-12 500 mcg tab) 500 MC G DAILY PO Ferrous Sulfate (FERROUS SULFATE) 325 MG DAILY P O Bisacodyl (DULCOLAX) 10 MG ONCE PRN RECTAL Atorvastatin Calcium (LIPITOR) 40 MG 2100 PO Clopidogrel Bisulfate (Plavix) 75 MG DAILY PO Polyethylene Glycol (MIRALAX) 17 GM DAILY PO Pantoprazole (PROTONIX) 40 MG DAILY@0600 PO Aspirin (ASPIRIN) 81 MG DAILY PO Docusate Sodium (COLACE) 100 MG BID PO Sennosides (Senna Lax 8.6 MG TABLET) 17.2 MG BED TIME PO Ipratropium Kersey (ATROVENT) 500 MCG RTQ4H INH Acetaminophen (TYLENOL) 650 MG Q4H PRN PRN PO Acetaminophen (TYLENOL) 650 MG Q4H PRN PRN RECTA L Dextrose/Water (DEXTROSE 10% IN WATER) 125 ML DIR PRN IV (CKD) Dextrose/Water (DEXTROSE 10% IN WATER) 250 ML DIR PRN IV (CKD) Glucagon (GLUCAGON) 1 MG ASDIR PRN IM Magnesium Sulfate (MAGNESIUM SULFATE 4GM/SWFI 10 0ML) 100 ML ASDIR PRN IV Magnesium Sulfate (MAGNESIUM SULFATE 2GM/SWFI 50 ML) 50 ML ASDIR PRN IV Magnesium Sulfate/Dextrose (MAGNESIUM SULFATE 1G M/D5W 100ML) 100 ML ASDIR PRN IV Ondansetron HCl (ZOFRAN) 4 MG Q6H PRN PRN IV Albumin Human (ALBUMINAR-25%) 12.5 GM ASDIR PRN IV Heparin Sodium (Porcine) (HEPARIN SODIUM) 3,000 UNIT ASDIR PRN DIALYSIS Lidocaine HCl (LIDOCAINE HCL/PF) 0.5 ML ASDIR NV N I-DERMAL (CKD) Mannitol (Mannitol 20%) 12.5 GM ASDIR PRN IV Sodium Chloride (SODIUM CHLORIDE 0.9%) 2,000 ML ASDIR PRN IV Tamsulosin HCl (Flomax 0.4 mg) 0.4 MG BEDTIME PO Physical Exam Head/eyes: atraumatic, normocephalic ENT: moist mucous membranes, normal nose Neck: non-tender, no JVD Cardiovascular: regular rate and rhythm Respiratory: clear to auscultation Abdomen: non-tender, soft Genitourinary: no bladder distention Extremities: no edema, no swelling 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ALTH: alert, oriented X 3, normal speech Skin: dry, intact Results Findings/Data: Laboratory Tests 07/25 07/25 0446 0446 Chemistry Sodium (134 - 147 mEq/L) 140 Potassium (3.4 - 5.0 mEq/L) 4.6 Chloride (100 - 108 mEq/L) 107 Carbon Dioxide (21 - 33 mEq/l) 22 Anion Gap (0 - 20) 16 BUN (7 - 18 mg/dL) 40 H Creatinine (0.6 - 1.3 mg/dL) 4.0 H Glomerular Filtr Rate (70 - 80) 14.5 L Glucose (70 - 110 mg/dL) 86 Calcium (8.0 - 10.5 mg/dL) 8.7 Magnesium (1.80 - 2.40 mg/dL) 1.87 Laboratory Tests 07/25 0446 Hematology WBC (4.5 - 11.0 x10 3/uL) 10.6 RBC (4.00 - 5.60 x10 6/uL) 2.85 L Hgb (12.5 - 16.9 g/dL) 8.2 L Hct (37.5 - 50.7 %) 27.3 L MCV (81.0 - 99.0 fL) 95.8 MCH (27.0 - 33.0 pg) 28.8 MCHC (33.0 - 37.0 g/dL) 30.0 L RDW (11.5 - 14.5 %) 16.1 H Plt Count (150 - 400 x10 3/uL) 364 MPV (7.0 - 9.0 fL) 10.3 H Neut % (Auto) (56.0 - 77.0 %) 69.4 Lymph % (Auto) (14.0 - 32.0 %) 8.9 L [place] % (Auto) (4.8 - 9.0 %) 8.6 Eos % (Auto) (0.3 - 3.7 %) 11.4 H Baso % (Auto) (0.0 - 2.0 %) 0.9 Neut # (Auto) (2.0 - 7.6 x10 3/uL) 7.38 Lymph # (Auto) (1.0 - 3.8 x10 3/uL) 0.95 L [place] # (Auto) (0.1 - 0.8 x10 3/uL) 0.91 H Eos # (Auto) (0.0 - 0.2 x10 3/uL) 1.21 H Baso # (Auto) (0.0 - 0.2 x10 3/uL) 0.10 Abs Immat Gran (auto) (0.00 - 0.03 x10 3/uL) 0. 09 H Add Manual Diff NO Immature Gran % (0.0 - 2.0 %) 0.8 Nucleated RBC % (0 - 0 %) 0.0 Nucleated RBCs # (Man) (0.0 - 0.1 x10 3/uL) 0.0 0 Treatment Prophylaxis Treatment Prophylaxis Drain(s)/tube(s): Drain(s)/tube(s): chest Diagnosis, Assessment Plan Free Text A P: Assessment: 1-CLAUDETTE likely from urinary retention with underlying CKD. oliguric CLAUDETTE now post op, and shock. 2- non-STEMI: multivessel disease w main left. 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 Waters catheter is in place. 4-severe bilateral hydronephrosis 5- shock : Cardiogenic resolved. 6-hyperlipidemia 7- AGMA resolved. Plan: - unknown Scr baseline. - HD MWF here. seen during HD today. - Still has excellent urine output volume. - Ultrasound showed severe bilateral hyd ronephrosis and medical renal disease. Urology seen and recommended Waters catheter when discharged home with Flomax, and outpatient follow-up. - He underwent LHC on 07/03. - Started on HD on 07/04. - s/p CABG X5 on 07/08 - TDC placed 07/15. - cr cl 7 ml/min. - discussed with CM. HD sche duled TTS, hopefully first HD on Thursday. okay to d/ c home after HD in am. Pending placement arrangement. Consultants: nephrology Electronically Signed by Evelina Plaza MD on at 1646 RPT #:[id number] END OF REPORT 2022-07-25 09:51:00-00:00 [facility] Cardiology Progress Note REPORT#:[id number] REPORT STATUS: Signed DATE:07/25/22 TIME: 950 PATIENT: SHERRI ARCE UNIT #: [id number] ROOM/BED: [place] [address] : 42 AGE: 81 SEX: M ATTEND: Jesus Larson MD ADM AUTHOR: Sonya Stacy CNP * ALL edits or amendments must be made on the [employer]/computer document * Subjective Patient reports: No: complaints. Objective General VS/I O: 24 hour I O ending at 0700: 07/25 0700 07/24 1900 Intake Total Output Total 800 Balance -800 Output, Urine 800 Vital Signs: Date Time Temp Pulse Resp B/P B/P Pulse O2 O2 F low FiO2 Mean Ox Delivery Rate 07/25 0853 36.3 80 18 125/61 0.0 100 07/25 0342 36.6 87 22 123/62 0.0 96 07/24 2306 36.7 85 21 119/65 0.0 99 07/24 2139 96 Room air 07/24 2016 36.7 88 20 146/70 0.0 96 07/24 1636 36.3 75 20 143/76 98.0 99 07/24 1244 98 Room air 21 07/24 1209 36.6 80 18 135/74 94.3 98 PATIENT WEIGHT: Weight (lb): 187 Weight (oz): 9.81 Weight (kg): 85.100 Medications: Active Meds + DC'd Last 24 Hrs Midodrine (PROAMATINE) 5 MG 0900,1300,1700 PRN P O Sodium Chloride (SODIUM CHLORIDE) 10 ML ASDIR IV Amiodarone HCl (CORDARONE) 200 MG BID PO Ipratropium Kersey (ATROVENT) 500 MCG RTQ2H PRN PRN INH Lactulose (LACTULOSE) 20 GM DAILY PRN PRN PO Cyanocobalamin (Vitamin B-12 500 mcg tab) 500 MC G DAILY PO Ferrous Sulfate (FERROUS SULFATE) 325 MG DAILY P O Bisacodyl (DULCOLAX) 10 MG ONCE PRN RECTAL Atorvastatin Calcium (LIPITOR) 40 MG 2100 PO Clopidogrel Bisulfate (Plavix) 75 MG DAILY PO Polyethylene Glycol (MIRALAX) 17 GM DAILY PO Pantoprazole (PROTONIX) 40 MG DAILY@0600 PO Aspirin (ASPIRIN) 81 MG DAILY PO Docusate Sodium (COLACE) 100 MG BID PO Sennosides (Senna Lax 8.6 MG TABLET) 17.2 MG BED TIME PO Ipratropium Kersey (ATROVENT) 500 MCG RTQ4H INH Acetaminophen (TYLENOL) 650 MG Q4H PRN PRN PO Acetaminophen (TYLENOL) 650 MG Q4H PRN PRN RECTA L Dextrose/Water (DEXTROSE 10% IN WATER) 125 ML DIR PRN IV (CKD) Dextrose/Water (DEXTROSE 10% IN WATER) 250 ML DIR PRN IV (CKD) Glucagon (GLUCAGON) 1 MG ASDIR PRN IM Magnesium Sulfate (MAGNESIUM SULFATE 4GM/SWFI 10 0ML) 100 ML ASDIR PRN IV Magnesium Sulfate (MAGNESIUM SULFATE 2GM/SWFI 50 ML) 50 ML ASDIR PRN IV Magnesium Sulfate/Dextrose (MAGNESIUM SULFATE 1G M/D5W 100ML) 100 ML ASDIR PRN IV Ondansetron HCl (ZOFRAN) 4 MG Q6H PRN PRN IV Albumin Human (ALBUMINAR-25%) 12.5 GM ASDIR PRN IV Heparin Sodium (Porcine) (HEPARIN SODIUM) 3,000 UNIT ASDIR PRN DIALYSIS Lidocaine HCl (LIDOCAINE HCL/PF) 0.5 ML ASDIR NV N I-DERMAL (CKD) Mannitol (Mannitol 20%) 12.5 GM ASDIR PRN IV Sodium Chloride (SODIUM CHLORIDE 0.9%) 2,000 ML ASDIR PRN IV Tamsulosin HCl (Flomax 0.4 mg) 0.4 MG BEDTIME PO Status post: 07/08/22 CABG x 5 (MISTRY-LAD, SVG-Ladonna, SVG-OM1< SV G-OM3, SVG-PDA) ALAA Physical Exam General appearance: alert, awake Head/Eyes: atraumatic ENT: moist mucosal membranes Neck: no JVD Cardiovascular: CV assessment: regular rate and rhythm, no murm ur Respiratory: decreased breath sounds, no distres s Abdomen: soft, non-tender, normal bowel sounds, no distention, no guarding Upper extremity: UE assessment: normal temperature, no edema Lower extremity: LE assessment: normal temperature, no edema Musculoskeletal: normal inspection 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ALTH: alert, oriented X 3, normal speech Skin: dry Psychiatry: normal affect Results Findings/Data: Laboratory Tests 07/25 07/25 0446 0446 Chemistry Sodium (134 - 147 mEq/L) 140 Potassium (3.4 - 5.0 mEq/L) 4.6 Chloride (100 - 108 mEq/L) 107 Carbon Dioxide (21 - 33 mEq/l) 22 Anion Gap (0 - 20) 16 BUN (7 - 18 mg/dL) 40 H Creatinine (0.6 - 1.3 mg/dL) 4.0 H Glomerular Filtr Rate (70 - 80) 14.5 L Glucose (70 - 110 mg/dL) 86 Calcium (8.0 - 10.5 mg/dL) 8.7 Magnesium (1.80 - 2.40 mg/dL) 1.87 Laboratory Tests 07/25 0446 Hematology WBC (4.5 - 11.0 x10 3/uL) 10.6 RBC (4.00 - 5.60 x10 6/uL) 2.85 L Hgb (12.5 - 16.9 g/dL) 8.2 L Hct (37.5 - 50.7 %) 27.3 L MCV (81.0 - 99.0 fL) 95.8 MCH (27.0 - 33.0 pg) 28.8 MCHC (33.0 - 37.0 g/dL) 30.0 L RDW (11.5 - 14.5 %) 16.1 H Plt Count (150 - 400 x10 3/uL) 364 MPV (7.0 - 9.0 fL) 10.3 H Neut % (Auto) (56.0 - 77.0 %) 69.4 Lymph % (Auto) (14.0 - 32.0 %) 8.9 L [place] % (Auto) (4.8 - 9.0 %) 8.6 Eos % (Auto) (0.3 - 3.7 %) 11.4 H Baso % (Auto) (0.0 - 2.0 %) 0.9 Neut # (Auto) (2.0 - 7.6 x10 3/uL) 7.38 Lymph # (Auto) (1.0 - 3.8 x10 3/uL) 0.95 L [place] # (Auto) (0.1 - 0.8 x10 3/uL) 0.91 H Eos # (Auto) (0.0 - 0.2 x10 3/uL) 1.21 H Baso # (Auto) (0.0 - 0.2 x10 3/uL) 0.10 Abs Immat Gran (auto) (0.00 - 0.03 x10 3/uL) 0. 09 H Add Manual Diff NO Immature Gran % (0.0 - 2.0 %) 0.8 Nucleated RBC % (0 - 0 %) 0.0 Nucleated RBCs # (Man) (0.0 - 0.1 x10 3/uL) 0.0 0 Laboratory Tests 07/25 445 Chemistry Magnesium (1.80 - 2.40 mg/dL) 1.87 Results: labs reviewed, vital signs reviewed, [facility] personally rev'd Telemetry Interpretation: sinus rhythm Diagnosis, Assessment Plan Problem List/A P: 1. HTN (hypertension) 2. CLAUDETTE (acute kidney injury) 3. CAD (coronary artery disease) 4. Dyslipidemia 5. BPH (benign prostatic hyperplasia) Consultants: nephrology Plan discussed with: patient, nurse Free Text DxA P Notes Free Text DxA P Notes: Mr. Arce is a pleasant 81 y/o M w/ PMHx: HTN, HLD presented to [facility] on 06/28/22 for chest pa in and sob. He was diagnosed NSTEMI. LHC showed multivessel CAD. Transferred to [facility] for CABG. 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 urology consulted for bladded outlet obstructio n and hydronephrosis, started on Flomax HD per nephro - HTN. bp stable, midodrine as needed - HLD. On statins. - Anemia. monitor Patient has been doing well. CM working on discharge arrangements at 0954 Electronically Signed by Liset Ennis MD on at 0831 RPT #:[id number] END OF REPORT 2022-07-25 07:15:00-00:00 [facility]ACL [facility] Rehab Progress Note REPORT#:[id number] REPORT STATUS: Signed DATE:07/25/22 TIME: 714 PATIENT: SHERRI ARCE UNIT #: [id number] ROOM/BED: [place] [address] : 42 AGE: 81 SEX: M ATTEND: Maryam Crawford DO ADM AUTHOR: Magdaleno Washburn * ALL edits or amendments must be made on the [email or web address] document * Subjective Chief complaint: Rehab follow-up Getting dialysis in room Denies pain or sob Pleasant Denies NAIK/N/V/D/CP 14 systems reviewed and neg. except that above. Objective General VS: Vital Signs: Date Time Temp Pulse Resp B/P B/P Pulse O2 O2 F low FiO2 Mean Ox Delivery Rate 07/25 0342 97.9 87 22 123/62 0.0 96 07/24 2306 98.1 85 21 119/65 0.0 99 07/24 2139 96 Room air 07/24 2016 98.1 88 20 146/70 0.0 96 07/24 1636 97.3 75 20 143/76 98.0 99 07/24 1244 98 Room air 21 07/24 1209 97.9 80 18 135/74 94.3 98 07/24 0926 95 Room air 21 PATIENT WEIGHT: Weight (lb): 187 Weight (oz): 9.81 Weight (kg): 85.100 Medications: Active Meds + DC'd Last 24 Hrs Midodrine (PROAMATINE) 5 MG 0900,1300,1700 PRN P O Sodium Chloride (SODIUM CHLORIDE) 10 ML ASDIR IV Amiodarone HCl (CORDARONE) 200 MG BID PO Ipratropium Kersey (ATROVENT) 500 MCG RTQ2H PRN PRN INH Lactulose (LACTULOSE) 20 GM DAILY PRN PRN PO Cyanocobalamin (Vitamin B-12 500 mcg tab) 500 MC G DAILY PO Ferrous Sulfate (FERROUS SULFATE) 325 MG DAILY P O Bisacodyl (DULCOLAX) 10 MG ONCE PRN RECTAL Atorvastatin Calcium (LIPITOR) 40 MG 2100 PO Clopidogrel Bisulfate (Plavix) 75 MG DAILY PO Polyethylene Glycol (MIRALAX) 17 GM DAILY PO Pantoprazole (PROTONIX) 40 MG DAILY@0600 PO Aspirin (ASPIRIN) 81 MG DAILY PO Docusate Sodium (COLACE) 100 MG BID PO Sennosides (Senna Lax 8.6 MG TABLET) 17.2 MG BED TIME PO Ipratropium Kersey (ATROVENT) 500 MCG RTQ4H INH Acetaminophen (TYLENOL) 650 MG Q4H PRN PRN PO Acetaminophen (TYLENOL) 650 MG Q4H PRN PRN RECTA L Dextrose/Water (DEXTROSE 10% IN WATER) 125 ML DIR PRN IV (CKD) Dextrose/Water (DEXTROSE 10% IN WATER) 250 ML DIR PRN IV (CKD) Glucagon (GLUCAGON) 1 MG ASDIR PRN IM Magnesium Sulfate (MAGNESIUM SULFATE 4GM/SWFI 10 0ML) 100 ML ASDIR PRN IV Magnesium Sulfate (MAGNESIUM SULFATE 2GM/SWFI 50 ML) 50 ML ASDIR PRN IV Magnesium Sulfate/Dextrose (MAGNESIUM SULFATE 1G M/D5W 100ML) 100 ML ASDIR PRN IV Ondansetron HCl (ZOFRAN) 4 MG Q6H PRN PRN IV Albumin Human (ALBUMINAR-25%) 12.5 GM ASDIR PRN IV Heparin Sodium (Porcine) (HEPARIN SODIUM) 3,000 UNIT ASDIR PRN DIALYSIS Lidocaine HCl (LIDOCAINE HCL/PF) 0.5 ML ASDIR NV N I-DERMAL (CKD) Mannitol (Mannitol 20%) 12.5 GM ASDIR PRN IV Sodium Chloride (SODIUM CHLORIDE 0.9%) 2,000 ML ASDIR PRN IV Tamsulosin HCl (Flomax 0.4 mg) 0.4 MG BEDTIME PO Functional Progress Functional progress: Activities Performed Cmt: PATIENT COMPLETED SIT <> STANDS TRANSFERS, COMMUNITY MOBILITY WITH TRANSPORT CHAIR HANDLES . PATIENT WAS RETURNED TO BS CHAIR WITH ALL NEEDS IN REACH. Assistive Device Used: Staff Support TRANSPORT CHAIR HANDLES Balance: Good Safety Awareness: Fair Effects of Treatment: Circulation improved Tolerance increased Comments: PATIENT WAS EDUCATED ON DME (SHOWER CHAIR). Physical Exam General appearance: alert, awake, no acute distr ess, pleasant Psych: alert, oriented x 3 HEENT: anicteric, sclera clear Neck: supple, no JVD Cardiovascular: regular rate rhythm, S1/S2 Respiratory: aerating well, clear bilaterally Abdomen: bowel sounds present, non-distended, so ft Skin: intact, no rash Musculoskeletal - general: Musculoskeletal - general: joints normal, meagan l muscle mass, normal tone 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ALTH: alert, oriented X 3, CNII-XII intact Results Findings/Data: Laboratory Tests 07/24 07/24 07/23 07/23 0449 0449 0425 0425 Chemistry Sodium (134 - 147 mEq/L) 144 143 Potassium (3.4 - 5.0 mEq/L) 4.0 4.2 Chloride (100 - 108 mEq/L) 111 H 109 H Carbon Dioxide (21 - 33 mEq/l) 26 24 Anion Gap (0 - 20) 10 14 BUN (7 - 18 mg/dL) 40 H 48 H Creatinine (0.6 - 1.3 mg/dL) 3.4 H 4.1 H Glomerular Filtr Rate (70 - 80) 17.6 L 14.1 L Glucose (70 - 110 mg/dL) 85 79 Calcium (8.0 - 10.5 mg/dL) 8.4 8.5 Magnesium (1.80 - 2.40 mg/dL) 1.87 2.00 Laboratory Tests 07/24 07/23 0449 0425 Hematology WBC (4.5 - 11.0 x10 3/uL) 10.4 11.6 H RBC (4.00 - 5.60 x10 6/uL) 2.63 L 2.56 L Hgb (12.5 - 16.9 g/dL) 7.8 L 7.5 L Hct (37.5 - 50.7 %) 25.0 L 24.7 L MCV (81.0 - 99.0 fL) 95.1 96.5 MCH (27.0 - 33.0 pg) 29.7 29.3 MCHC (33.0 - 37.0 g/dL) 31.2 L 30.4 L RDW (11.5 - 14.5 %) 16.1 H 16.2 H Plt Count (150 - 400 x10 3/uL) 331 352 MPV (7.0 - 9.0 fL) 10.4 H 10.5 H Neut % (Auto) (56.0 - 77.0 %) 68.8 71.0 Lymph % (Auto) (14.0 - 32.0 %) 9.8 L 8.3 L [place] % (Auto) (4.8 - 9.0 %) 8.7 8.2 Eos % (Auto) (0.3 - 3.7 %) 11.0 H 10.8 H Baso % (Auto) (0.0 - 2.0 %) 1.0 0.8 Neut # (Auto) (2.0 - 7.6 x10 3/uL) 7.17 8.26 H Lymph # (Auto) (1.0 - 3.8 x10 3/uL) 1.02 0.96 L [place] # (Auto) (0.1 - 0.8 x10 3/uL) 0.90 H 0.95 H Eos # (Auto) (0.0 - 0.2 x10 3/uL) 1.14 H 1.25 H Baso # (Auto) (0.0 - 0.2 x10 3/uL) 0.10 0.09 Abs Immat Gran (auto) (0.00 - 0.03 x10 3/uL) 0. 07 H 0.10 H Add Manual Diff NO NO Immature Gran % (0.0 - 2.0 %) 0.7 0.9 Nucleated RBC % (0 - 0 %) 0.0 0.0 Nucleated RBCs # (Man) (0.0 - 0.1 x10 3/uL) 0.0 0 0.00 Diagnosis, Assessment Plan Free Text A P: Non-STEMI Multivessel CAD S/p CABG x5 Physical deconditioning Impaired mobility and gait Postoperative anemia Dyslipidemia Hypertension CLAUDETTE Acute systolic heart failure Hemodynamic issues postop Leukocytosis trending down Pleural effusion and atelectasis Plan: Continue PT/OT Out of bed to chair Work on strength, bed mobility, transfers, gait Sternal precaution Increase endurance Fall precautions Monitor p.o. intake and nutrition Strict decubitus precautions Monitor anemia. Persistent left pneumothorax. IR guided pigtail place. CXR shows expansion of the lung Urology consulted -Pt on Flomax Nephrology managing renal issues and elevated K+ Utilize IS to reduce atelectasis Advance therapies as tolerated Pt lives alone and has 5 to 6 stairs to enter ho use SNF order has been placed. Will require insurance approval for SNF , dialysis clinic acceptance, approval for LifeVest prior to discharge Ambulating 500ft SPV NO DME Total time was 33 minutes > 50% with patient per forming physical examination, discussing plan of care, goals, therapies, progr ess, medications, labs, SNF. All questions answered Rehab attestation: . Electronically Signed by Magdaleno Washburn on 0 07/25/[address] [facility] #:[id number] END OF REPORT 2022-07-24 19:46:00-00:00 [facility]ACL [facility] Cardiothoracic Surgery Prog REPORT#:[id number] REPORT STATUS: Signed DATE:07/24/22 TIME: 1945 PATIENT: SHERRI ARCE UNIT #: [id number] ROOM/BED: [place] [address] : 42 AGE: 81 SEX: M ATTEND: Srinath Kaur MD ADM AUTHOR: Rosalind Toribio * ALL edits or amendments must be made on the [email or web address] document * General Post-op: day 10 Status post: 07/08/22 CABG x 5 (MISTRY-LAD, SVG-Ladonna, SVG-OM1< SVG-OM3, SVG-PDA) ALAA JACQUIH (RGSV) Subjective Chief complaint: s/p CABG no complaints Review of Systems Constitutional: Denies: chills, fever, malaise. Allergy/Immun: Denies: allergic reaction. Respiratory: Denies: SOB. Cardiovascular: Denies: chest pain, palpitations. GI: Denies: abdominal pain, nausea, vomiting. : Denies: dysuria, hematuria. Heme: Denies: bleeding. Neuro: Denies: dizziness, headache, vision change. All systems rev neg: except as marked Objective Physical Exam General appearance: alert, oriented Wound/incision: Location: sternal Site condition: edges approximated, incision in tact, no drainage, no ecchymosis, no erythema HEENT: anicteric, mucosal membranes moist Neck: supple/no meningismus Cardiovascular: normal heart sounds, regular rat e rhythm Respiratory: aerating well, symmetric expansion, no distress Abdomen: soft, non-tender, no distention Genitourinary: waters Extremities: moves all 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ALTH: alert, oriented X 3, normal speech, n o motor deficits Psychiatry: normal affect, normal mood Current Medications Medications: Active Meds + DC'd Last 24 Hrs Midodrine (PROAMATINE) 5 MG 0900,1300,1700 PRN P O Sodium Chloride (SODIUM CHLORIDE) 10 ML ASDIR IV Amiodarone HCl (CORDARONE) 200 MG BID PO Ipratropium Kersey (ATROVENT) 500 MCG RTQ2H PRN PRN INH Lactulose (LACTULOSE) 20 GM DAILY PRN PRN PO Cyanocobalamin (Vitamin B-12 500 mcg tab) 500 MC G DAILY PO Ferrous Sulfate (FERROUS SULFATE) 325 MG DAILY P O Bisacodyl (DULCOLAX) 10 MG ONCE PRN RECTAL Atorvastatin Calcium (LIPITOR) 40 MG 2100 PO Clopidogrel Bisulfate (Plavix) 75 MG DAILY PO Polyethylene Glycol (MIRALAX) 17 GM DAILY PO Pantoprazole (PROTONIX) 40 MG DAILY@0600 PO Aspirin (ASPIRIN) 81 MG DAILY PO Docusate Sodium (COLACE) 100 MG BID PO Sennosides (Senna Lax 8.6 MG TABLET) 17.2 MG BED TIME PO Ipratropium Kersey (ATROVENT) 500 MCG RTQ4H INH Acetaminophen (TYLENOL) 650 MG Q4H PRN PRN PO Acetaminophen (TYLENOL) 650 MG Q4H PRN PRN RECTA L Dextrose/Water (DEXTROSE 10% IN WATER) 125 ML DIR PRN IV (CKD) Dextrose/Water (DEXTROSE 10% IN WATER) 250 ML DIR PRN IV (CKD) Glucagon (GLUCAGON) 1 MG ASDIR PRN IM Magnesium Sulfate (MAGNESIUM SULFATE 4GM/SWFI 10 0ML) 100 ML ASDIR PRN IV Magnesium Sulfate (MAGNESIUM SULFATE 2GM/SWFI 50 ML) 50 ML ASDIR PRN IV Magnesium Sulfate/Dextrose (MAGNESIUM SULFATE 1G M/D5W 100ML) 100 ML ASDIR PRN IV Ondansetron HCl (ZOFRAN) 4 MG Q6H PRN PRN IV Albumin Human (ALBUMINAR-25%) 12.5 GM ASDIR PRN IV Heparin Sodium (Porcine) (HEPARIN SODIUM) 3,000 UNIT ASDIR PRN DIALYSIS Lidocaine HCl (LIDOCAINE HCL/PF) 0.5 ML ASDIR NV N I-DERMAL (CKD) Mannitol (Mannitol 20%) 12.5 GM ASDIR PRN IV Sodium Chloride (SODIUM CHLORIDE 0.9%) 2,000 ML ASDIR PRN IV Tamsulosin HCl (Flomax 0.4 mg) 0.4 MG BEDTIME PO Results Findings/Data: Laboratory Tests 07/24 0449 Chemistry Sodium (134 - 147 mEq/L) 144 Potassium (3.4 - 5.0 mEq/L) 4.0 Chloride (100 - 108 mEq/L) 111 H Carbon Dioxide (21 - 33 mEq/l) 26 Anion Gap (0 - 20) 10 BUN (7 - 18 mg/dL) 40 H Creatinine (0.6 - 1.3 mg/dL) 3.4 H Glomerular Filtr Rate (70 - 80) 17.6 L Glucose (70 - 110 mg/dL) 85 Calcium (8.0 - 10.5 mg/dL) 8.4 Magnesium (1.80 - 2.40 mg/dL) 1.87 Laboratory Tests 07/24 448 Hematology WBC (4.5 - 11.0 x10 3/uL) 10.4 RBC (4.00 - 5.60 x10 6/uL) 2.63 L Hgb (12.5 - 16.9 g/dL) 7.8 L Hct (37.5 - 50.7 %) 25.0 L MCV (81.0 - 99.0 fL) 95.1 MCH (27.0 - 33.0 pg) 29.7 MCHC (33.0 - 37.0 g/dL) 31.2 L RDW (11.5 - 14.5 %) 16.1 H Plt Count (150 - 400 x10 3/uL) 331 MPV (7.0 - 9.0 fL) 10.4 H Neut % (Auto) (56.0 - 77.0 %) 68.8 Lymph % (Auto) (14.0 - 32.0 %) 9.8 L [place] % (Auto) (4.8 - 9.0 %) 8.7 Eos % (Auto) (0.3 - 3.7 %) 11.0 H Baso % (Auto) (0.0 - 2.0 %) 1.0 Neut # (Auto) (2.0 - 7.6 x10 3/uL) 7.17 Lymph # (Auto) (1.0 - 3.8 x10 3/uL) 1.02 [place] # (Auto) (0.1 - 0.8 x10 3/uL) 0.90 H Eos # (Auto) (0.0 - 0.2 x10 3/uL) 1.14 H Baso # (Auto) (0.0 - 0.2 x10 3/uL) 0.10 Abs Immat Gran (auto) (0.00 - 0.03 x10 3/uL) 0 .07 H Add Manual Diff NO Immature Gran % (0.0 - 2.0 %) 0.7 Nucleated RBC % (0 - 0 %) 0.0 Nucleated RBCs # (Man) (0.0 - 0.1 x10 3/uL) 0.0 0 Quality: Trauma Gen Surg VTE Prophylaxis - General VTE prophylaxis initiated: yes Diagnosis, Assessment Plan Hospital course to date: This is a 81-year-old gentleman who presented to an outside hospital with complaints of chest pains while walking at his home on Thursday. He denies any previous history of coronary artery disease or o ther NE. He was seen and evaluated at [facility]. He was found to have a urinary tract infection with urinary retention and acute kidne y. He was started on dialysis via a left femoral temporary catheter. He underw ent dialysis on Thursday, Thursday. Renal has been consulted During his work-up at outside hospital he underw ent Left heart catheterization showing sever e Left Main 70%. LAD: Proximal diffuse 80% stenosis and then diffuse 60% in the midsegment and on the distal segment, there is focal 70% stenosis. Diagonal branches w ith luminal irregularities. Left circumflex, codominant circulation with pro ximal 80%, mid 80 to 90% and then in the OM, there is proximal 60%, distal le ft circumflex has a 70% stenosis. RCA large and dominant with proximal 4 0% stenosis, mid 60% stenosis and then diffuse 50% stenosi s all the way distally and the PLV and the PDA with luminal irregularities. CV surgery consulted for evaluation for coronary bypass graft. CAROTIDS - No carotid stenosis CT chest complete IMPRESSION: Small bilateral pleural effusions with bibasila r atelectasis. Echo: 1. Left ventricle: The cavity size is at the upp er limits of normal. Wall thickness is mildly increased. Systolic fu nction is severely reduced. The estimated ejection fraction is 30- 34%. Moderate hypokinesis of the entire myocardium. Doppler p arameters are consistent with abnormal left ventricular relax ation (grade 1 diastolic dysfunction). 2. Pericardium, extracardiac: A small pericardia l effusion is identified along the left ventricular free wall, along the right ventricular free wall, and along the right atrial free wall . Assessment/Plan 1) CAD Mutlivessel Will obtain echo,carotids. 2) CLAUDETTE Started dialysis on Creatine 7.3 Renal consulted. 3) BPH- Urinary retention. Waters in place Workup for CABG underway. Will get functional assessment with PT. PFT pending Carotid dopplers- No disease Echo Pending Dialyiss per Renal. Baseline Cr unknown. 07/04 07/04 Doing well today, alert, up in the chair. Denies chest pain Echocardiogram showed LVEF 30 to 34%, mild MR, t rivial TR CT chest images reviewed Encourage I-S and mobilization Creatinine 5.5 from 7.3, good urine output. Pao l US showed bilateral severe hydronephrosis. Plan for HD today and tomorrow Will tentatively schedule patient for surgery on Thursday. Patient seen and plan reviewed with Dr Schwarz 07/05 Remains in a stable condition, denies chest pain BUN 53, creatinine 5.4. Plan for hemodia lysis today and tomorrow for clearance He is also on Lasix 20 mg IV twice daily, urine output 1.1 L overnight We will calculate risk of surgery with STS score Encourage I-S and mobilization Will tentatively schedule patient for surgery on Thursday. Pt seen and plan reviewed with Dr Schwarz 07/06 BUN 36, creatinine 4.4. Plan for hemodialysis to day Awaiting CABG tomorrow Surgery, risks involved, STS score, benefits, co mplications and alternatives were explained to the patient. He acknow ledged understanding and is willing to proceed N.p.o. after midnight Patient seen and plan reviewed with Dr. Schwarz 07/09/22 POD 1 CABG x 5 (MISTRY-LAD, SVG-Ladonna, SVG-OM1< SVG-OM3, S VG-PDA), ALAA, EVH (RGSV) Patient hemodynamically unstable, on epi at 4, a nd vaso .04, decreased uop overnight- 150cc Started patient on CRRT 2k/3.5 Wean epi as tolerated, Cardiac incex 2.8-3 labs and chest x-ray reviewed, electroly marcie stable, hgb 6.5- transfuse 2 units PRBC On 4l nasal cannula- encourage incentive spirome ter and deep breathing Keep both chest tubes and monitor outputs Glycemic control on insulin drip Cardiac diet Bowel regimen protocol Pain management SCDs for DVT and PPI for GI prophylaxis PT/OT Monitor patient closely in CVICU Plan of care discussed with Dr. Schwarz 07/10/22 POD 2 Patient alert, awake, and oriented, no distres n oted labs and CXR reviewed stable Breathing comfortably on 3l nasal cannula- wean as tolerated to melissa O2 sats > 92 % Encourage I-S use and deep breathing On CRRT- able to remove 2.9L overnight- nephrolo gy following Cardiac index 3.1- wean off epi drip Keep chest tubes for now and monitor outputs Transition to sliding scale insulin- cardiac t Try to get patient out of bed to chair today- am bulate with PT/OT SCDs for DVT prophylaxis Keep patient in CVICU for close monitoring 07/11/22 POD 3 Patient in stable condition, overnight e vents noted- decreased urine output 35 ml last night-started on dopamine gtt for renal perfusion Cardiac index 3.5- epi currently at 2- will disc ontinue today, vasopressin at 0.02, added low dose midodrine 2.5 mg TID, repea t echocardiogram. Renal Following- trial Lasix Patient has Left femoral tem p dialysis cath, Will need tunneled dialysis IJ cath placed if need dialysis. On 5l nasal cannula- wean off as tolerat ed, encourage incentive spirometer and deep breathing Keep left pleural chest tube and monitor output- > 200 cc Tolerating diet, bowel regimen protocol PT/OT- patient out of bed to chair today- encour age ambulation DVT prophylaxis with SCDs Monitor patient closely in CVICU Plan discussed with multidisciplinary team Plan discussed with Dr Schwarz/ Dr Rodríguez 07/12/22 POD 5, Patient resting comfortable. Patient with hx of urinary r etention- After standing today- voided 1.4 L. Needs Urology consult for retention K 5.4- HD in progress. Dr Plaza following. CT output 20- DC today. Pacers remain in place. Patient has Left femoral tem p dialysis cath, Re-evaluate on Thursday if ocean transportation intermediary dialysis needed. Card: Remains in sinus rhythm. Respir: on 7 L NC O2 95% Dispo: Rehab consulted Patient seen and exmained by Dr Rodríguez. Plan discussed with Team 07/13/22 POD 5 Patient with no new complaints. Recieved HD yest erday. Requiring less oxygen, now on 3l nasal cannula- continue to wean off CXR reviewed left apical pne umothorax 4cm/30%, Chest tube drained 140 overnight, placed back on suction to clear pneumo, CT drianed 200cc th is AM. on suction. Labs reviewed- stable, decreased WBC, hgb stable , CR 3.9 Eating welll, +BM UO- 550CC, BP improved on midodrine. Continue PT/OT, ambulation and incentive spirome ter use Rehab folowing Monitor in ICU today Disucssed with Dr Schwarz- Adeola C femoral line and Central line today. DC art line. Will re-eval need for dialysis cath Thursday. Cons ider tunnelled cath if need. Patient seen and examined by Dr Rodríguez. Plan discussed with Care team. 07/14 POD 6 Patient in stable condition, no distress noted Remains on room air, O2 sats > 92%, encourage I- S use and deep breathing CXR shows moderate left apical pneumothorax unch anged CT remained on suction, no airleak no Consult IR for pigtail chest tube placement this morning Cardiac/renal diet Labs reviewed- K 5.1- repeat labs K 4.8 Nephrology following Continue therapy with PT/OT Follow up with urology for waters catheter- Dr Hunter carrera consulted. Monitor in CVICU Plan of care discussed with Dr Schwarz and multi disciplinary team 07/15/22 POD 7 Patient alert, awake, and oriented, no distress, no complaints at this time Breathing comfortable on room air CXR shows resolved pneumothorax LP and pigtail chest tube- no air leak noted, mi nimal output from LP 40 overnight Labs reviewed, K 5.2- corrected, follow up with nephrology to discuss need for dialysis Trend labs this afternoon Bowel regimen, +gas Waters catheter discontinued per urology- voiding trial this AM Ambulation and incentive spirometer use encour ed DVT prophylaxis with SCDs Keep in ICU DISP: SNF- Case management Discussed plan of care with multidisciplinary te bandar and Dr. Schwarz 07/16/2022 POD 8 Patient doing well, alert, awake, and oriented O2 sats 93% on room air, encourage I-S CXR stable- no pneumo noted Left pigtail chest tube - no air leak, clamped t his morning, repeat CXR Placement of tunneled dialysis catheter (BioFlo DuraMax 28 cm) yesterday HD treatment done yesterday evening, plan for HD treatment today per nephrology Patient failed voiding trial, waters catheter rep laced- follow up with urology Eating well Continue PT/OT- ambulation Transfer to CV 1 intermediate care unit Discharge planning for SNF- CM following and to set up dialysis chair Patient seen with Dr. Allie louis and discussed plan of care with multidisciplinary team. 07/17/22 Patient in stable condition, no complaints Labs and CXR reviewed- stable Left pigtail chest tube discontinued yesterday- no pneumo noted Remains on room air, no distress- I-S encouraged Cardiac diet, +BM Keep waters per urology f/u outpt, continue floma x HD per nephrology- CM to setup outpt dialysis ch air Awaiting bed availability on CV 1 Discharge planning- SNF Plan of care discussed with multidisciplinary david portillo and Dr. Schwarz. 07/18 Patient in stable condition, no complaints Remains on room air, no distress- I-S encouraged Epicardial pacing wires discontinued. Limited ec ho to rule out pericardial effusion Keep watres per urology f/u outpt, continue floma x HD per nephrology- to setup outpt dialysis ch air Discharge planning- SNF Plan of care discussed with multidisciplinary david portillo and Dr. Schwarz. 07/19 No new events Echocardiogram done, report pending HD per nephrology- to setup outpt dialysis ch air [facility] Patient seen and plan reviewed with Dr. Schwarz 07/20 Remains in a stable condition. Echocardiogram showed LVEF 30 to 34%, trivial pe ricardial effusion HD schedule per nephrology Awaiting insurance approval for SNF 07/21 No complaints today HD schedule per nephrology Awaiting insurance approval for SNF Encourage I-S and mobilization 07/22 Remains in stable condition Continue current management. Aspirin, Plavix, statin. Did not tolerate metoprolol, on midodrine 5 mg 3 times daily WBCs trending down Awaiting insurance approval for SNF 07/23 No new events Hemodialysis this mornning Hemodynamically stable, sinus rhythm 80s Awaiting placement 07/24 Doing well today No changes in sternal incision Sternal precautions for 6 weeks Awaiting placement at 1947 at 1000 RPT #:[id number] END OF REPORT 2022-07-24 18:29:00-00:00 [facility]L [facility] ([facility]) Rehab Progress Note REPORT#:[id number] REPORT STATUS: Signed DATE:07/24/22 TIME: 1828 PATIENT: SHERRI ARCE UNIT #: [id number] ROOM/BED: [place] [address] : 42 AGE: 81 SEX: M ATTEND: Srinath Kaur MD ADM AUTHOR: Florencia Washburn NP * ALL edits or amendments must be made on the [email or web address] document * Subjective Chief complaint: Rehab follow-up Denies pain or sob Pleasant Denies NAIK/N/V/D/CP 14 systems reviewed and neg. except that above. Objective General VS: Vital Signs: Date Time Temp Pulse Resp B/P B/P Pulse O2 O2 F low FiO2 Mean Ox Delivery Rate 07/24 1636 97.3 75 20 143/76 98.0 99 07/24 1244 98 Room air 07/24 1209 97.9 80 18 135/74 94.3 98 07/24 0926 95 Room air 07/24 0702 97.9 84 18 106/62 76.2 94 07/24 0421 98.1 84 13 117/60 0.0 92 Room air 07/237 98.2 86 13 115/57 0.0 94 Room air 07/23 2034 95 Room air 07/23 2030 98.2 85 13 123/58 0.0 96 Room air PATIENT WEIGHT: Weight (lb): 187 Weight (oz): 9.81 Weight (kg): 85.100 Medications: Active Meds + DC'd Last 24 Hrs Midodrine (PROAMATINE) 5 MG 0900,1300,1700 PRN P O Sodium Chloride (SODIUM CHLORIDE) 10 ML ASDIR IV Amiodarone HCl (CORDARONE) 200 MG BID PO Ipratropium Kersey (ATROVENT) 500 MCG RTQ2H PRN PRN INH Lactulose (LACTULOSE) 20 GM DAILY PRN PRN PO Cyanocobalamin (Vitamin B-12 500 mcg tab) 500 MC G DAILY PO Ferrous Sulfate (FERROUS SULFATE) 325 MG DAILY P O Bisacodyl (DULCOLAX) 10 MG ONCE PRN RECTAL Atorvastatin Calcium (LIPITOR) 40 MG 2100 PO Clopidogrel Bisulfate (Plavix) 75 MG DAILY PO Polyethylene Glycol (MIRALAX) 17 GM DAILY PO Pantoprazole (PROTONIX) 40 MG DAILY@0600 PO Aspirin (ASPIRIN) 81 MG DAILY PO Docusate Sodium (COLACE) 100 MG BID PO Sennosides (Senna Lax 8.6 MG TABLET) 17.2 MG BED TIME PO Ipratropium Kersey (ATROVENT) 500 MCG RTQ4H INH Acetaminophen (TYLENOL) 650 MG Q4H PRN PRN PO Acetaminophen (TYLENOL) 650 MG Q4H PRN PRN RECTA L Dextrose/Water (DEXTROSE 10% IN WATER) 125 ML DIR PRN IV (CKD) Dextrose/Water (DEXTROSE 10% IN WATER) 250 ML DIR PRN IV (CKD) Glucagon (GLUCAGON) 1 MG ASDIR PRN IM Magnesium Sulfate (MAGNESIUM SULFATE 4GM/SWFI 10 0ML) 100 ML ASDIR PRN IV Magnesium Sulfate (MAGNESIUM SULFATE 2GM/SWFI 50 ML) 50 ML ASDIR PRN IV Magnesium Sulfate/Dextrose (MAGNESIUM SULFATE 1G M/D5W 100ML) 100 ML ASDIR PRN IV Ondansetron HCl (ZOFRAN) 4 MG Q6H PRN PRN IV Albumin Human (ALBUMINAR-25%) 12.5 GM ASDIR PRN IV Heparin Sodium (Porcine) (HEPARIN SODIUM) 3,000 UNIT ASDIR PRN DIALYSIS Lidocaine HCl (LIDOCAINE HCL/PF) 0.5 ML ASDIR NV N I-DERMAL (CKD) Mannitol (Mannitol 20%) 12.5 GM ASDIR PRN IV Sodium Chloride (SODIUM CHLORIDE 0.9%) 2,000 ML ASDIR PRN IV Tamsulosin HCl (Flomax 0.4 mg) 0.4 MG BEDTIME PO Functional Progress Functional progress: The data set between the solid lines has been im ported from multidisciplinary team documentation. __ FUNCTIONAL ACTIVITY ADMISSION STATUS INTERIM ST ATUS Toilet hygiene Toilet transfer Eating Shower/bathing Dressing upper body Dressing lower body Transfer to/from bed to chair Wheel 50ft w/ 2 turns Wheel 150 ft Walk 50 ft w/ 2 turns Walk 150 ft Four steps __ Physical Exam General appearance: alert, awake Psych: alert, oriented x 3 HEENT: anicteric, sclera clear Neck: supple, no JVD Cardiovascular: regular rate rhythm, S1/S2 Respiratory: aerating well, clear bilaterally Abdomen: bowel sounds present, non-distended, so ft Skin: intact, no rash Musculoskeletal - general: Musculoskeletal - general: joints normal, meagan l muscle mass, normal tone 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ALTH: alert, oriented X 3, CNII-XII intact Diagnosis, Assessment Plan Free Text A P: dNon-STEMI Multivessel CAD S/p CABG x5 Physical deconditioning Impaired mobility and gait Postoperative anemia Dyslipidemia Hypertension CLAUDETTE Acute systolic heart failure Hemodynamic issues postop Leukocytosis trending down Pleural effusion and atelectasis Plan: Continue PT/OT Out of bed to chair Work on strength, bed mobility, transfers, gait Sternal precaution Increase endurance Fall precautions Monitor p.o. intake and nutrition Strict decubitus precautions Monitor anemia. Persistent left pneumothorax. IR guided pigtail place. CXR shows expansion of the lung Urology consulted -Pt on Flomax Nephrology managing renal issues and elevated K+ Utilize IS to reduce atelectasis Advance therapies as tolerated Pt lives alone and has 5 to 6 stairs to enter ho use SNF order has been placed. Will require insurance approval for SNF , dialysis clinic acceptance, approval for [facility]Vest prior to discharge SNF waiting for inservice on LIfe vest Ambulating 500ft SPV NO DME Total time was 35 minutes > 50% with patient per forming physical examination, discussing plan of care, goals, therapies, progr ess, medications, labs, SNF. All questions answered Rehab attestation: Face to face exam completed. Treatment plan disc ussed with patient. at 1940 RPT #:[id number] END OF REPORT 2022-07-24 12:00:00-00:00 [facility] Hospitalist Progress Note REPORT#:[id number] REPORT STATUS: Signed DATE:07/24/22 TIME: 1200 PATIENT: SHERRI ARCE UNIT #: [id number] ROOM/BED: [place] [address] : 42 AGE: 81 SEX: M ATTEND: Maryam Crawford DO ADM AUTHOR: Jesus Larson MD * ALL edits or amendments must be made on the [email or web address]/computer document * Subjective Chief complaint: no cp. no sob. Objective General VS/I O: Vital Signs: Date Time Temp Pulse Resp B/P B/P Pulse O2 O2 F low FiO2 Mean Ox Delivery Rate 07/24 0702 97.9 84 18 106/62 76.2 94 07/24 0421 98.1 84 13 117/60 0.0 92 Room air 07/23 2347 98.2 86 13 115/57 0.0 94 Room air 07/23 2035 95 Room air 07/23 203 98.2 85 13 123/58 0.0 96 Room air 07/23 1655 97.5 93 22 112/58 0.0 99 24 hour I O ending at 0700: 07/24 0700 07/23 1900 Intake Total 700 1120 Output Total 1000 2700 Balance -300 -1580 Intake, Oral 700 1120 Number 1 Bowel Movements Output, 1000 Hemodialysis Output, Urine 1000 1700 Patient 85.1 kg Weight Weight Standing scale Measurement Method PATIENT WEIGHT: Weight (lb): 187 Weight (oz): 9.81 Weight (kg): 85.100 Physical Exam General appearance: alert, awake Head/Eyes: atraumatic, EOMI, normal conjunctiva/ sclera, normocephalic, PERRLA ENT: moist mucosal membranes Neck: no JVD Cardiovascular: normal heart sounds, regular rat e rhythm Respiratory: aerating well, clear to auscultatio n, symmetric expansion, no distress Abdomen: non-tender, normal bowel sounds , soft, no distention, no guarding, no rebound Genitourinary: urinary catheter Extremities: no edema Musculoskeletal: normal inspection 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ALTH: normal speech, no motor deficits, no sensory deficits Skin: intact, normal color, no rash Psychiatry: normal affect Results Radiology data: Laboratory Tests 07/24/22 0449: [Embedded Image Not Available] 07/23/22 0425: [Embedded Image Not Available] Current Medications Sig/Earl Start time Last Medication Dose Route Stop Time Status Admin Midodrine 5 MG 0900,1300,1700 PRN 07/17 2100 AC 07/24 PO 08/16 205 1004 Sodium Chloride 10 ML ASDIR 07/17 1030 AC IV 08/16 1029 Amiodarone HCl 200 MG BID 07/16 09 AC 07/24 PO 08/15 0859 1005 Ipratropium Kersey 500 MCG RTQ2H PRN PRN 07/11 1821 AC 07/10 INH 08/10 1820 1302 Lactulose 20 GM DAILY PRN PRN 07/11 1245 AC 3 PO 08/10 1244 1411 Cyanocobalamin 500 MCG DAILY 07/11 09 AC 07/24 PO 08/10 0859 1004 Ferrous Sulfate 325 MG DAILY 07/11 09 AC 07/24 PO 08/10 0859 1005 Bisacodyl 10 MG ONCE PRN 07/10 1200 AC 07/11 RECTAL 08/09 1159 0928 Atorvastatin Calcium 40 MG 07/09 2100 AC PO 08/08 2059 2044 Clopidogrel Bisulfate 75 MG DAILY 07/09 09 AC 07/24 PO 08/08 0859 1004 Polyethylene Glycol 17 GM DAILY 07/09 09 AC PO 08/08 0859 1008 Pantoprazole 40 MG DAILY@0600 07/09 0600 AC 07/09 6 PO 08/08 0559 0610 Aspirin 81 MG DAILY 07/09 0020 AC 07/24 PO 08/08 0019 1004 Docusate Sodium 100 MG BID 07/08 2100 AC 07/24 PO 08/07 2058 1008 Sennosides 17.2 MG BEDTIME 07/08 2100 AC 07/22 PO 08/07 Ipratropium Kersey 500 MCG RTQ4H 07/08 1900 AC 07/24 INH 08/07 1859 0926 Acetaminophen 650 MG Q4H PRN PRN 07/08 1830 AC 07/24 PO 08/07 1829 1005 Acetaminophen 650 MG Q4H PRN PRN 07/08 1830 AC RECTAL 08/07 1829 Dextrose/Water 125 ML ASDIR PRN 07/08 1830 CKD IV 08/07 1829 Dextrose/Water 250 ML ASDIR PRN 07/08 183 CKD IV 08/07 1829 Glucagon 1 MG ASDIR PRN 07/08 1830 AC IM 08/07 1829 Magnesium Sulfate 100 ML ASDIR PRN 07/08 1830 AC IV 08/07 1829 Magnesium Sulfate 50 ML ASDIR PRN 07/08 1830 AC 07/21 IV 08/07 1829 1034 Magnesium Sulfate/ 100 ML ASDIR PRN 07/08 1830 A C 07/16 Dextrose IV 08/07 1829 0650 Ondansetron HCl 4 MG Q6H PRN PRN 07/08 1830 AC IV 08/07 1829 Albumin Human 12.5 GM ASDIR PRN 07/03 1200 AC 0 07/10 IV 08/03 1155 1327 Heparin Sodium 3,000 UNIT ASDIR PRN 07/03 1200 A C 07/23 (Porcine) DIALYSIS 08/02 1159 0927 Lidocaine HCl 0.5 ML ASDIR PRN 07/03 1200 CKD I-DERMAL 08/03 1155 Mannitol 12.5 GM ASDIR PRN 07/03 1200 AC IV 08/03 1155 Sodium Chloride 2,000 ML ASDIR PRN 07/03 1200 AC 07/23 IV 08/03 1155 0926 Tamsulosin HCl 0.4 MG BEDTIME 07/02 2144 AC PO 08/01 Laboratory Tests: 07/24 07/24 0449 0449 Chemistry Sodium (134 - 147 mEq/L) 144 Potassium (3.4 - 5.0 mEq/L) 4.0 Chloride (100 - 108 mEq/L) 111 H Carbon Dioxide (21 - 33 mEq/l) 26 Anion Gap (0 - 20) 10 BUN (7 - 18 mg/dL) 40 H Creatinine (0.6 - 1.3 mg/dL) 3.4 H Glomerular Filtr Rate (70 - 80) 17.6 L Glucose (70 - 110 mg/dL) 85 Calcium (8.0 - 10.5 mg/dL) 8.4 Magnesium (1.80 - 2.40 mg/dL) 1.87 Hematology WBC (4.5 - 11.0 x10 3/uL) 10.4 RBC (4.00 - 5.60 x10 6/uL) 2.63 L Hgb (12.5 - 16.9 g/dL) 7.8 L Hct (37.5 - 50.7 %) 25.0 L MCV (81.0 - 99.0 fL) 95.1 MCH (27.0 - 33.0 pg) 29.7 MCHC (33.0 - 37.0 g/dL) 31.2 L RDW (11.5 - 14.5 %) 16.1 H Plt Count (150 - 400 x10 3/uL) 331 MPV (7.0 - 9.0 fL) 10.4 H Neut % (Auto) (56.0 - 77.0 %) 68.8 Lymph % (Auto) (14.0 - 32.0 %) 9.8 L [place] % (Auto) (4.8 - 9.0 %) 8.7 Eos % (Auto) (0.3 - 3.7 %) 11.0 H Baso % (Auto) (0.0 - 2.0 %) 1.0 Neut # (Auto) (2.0 - 7.6 x10 3/uL) 7.17 Lymph # (Auto) (1.0 - 3.8 x10 3/uL) 1.02 [place] # (Auto) (0.1 - 0.8 x10 3/uL) 0.90 H Eos # (Auto) (0.0 - 0.2 x10 3/uL) 1.14 H Baso # (Auto) (0.0 - 0.2 x10 3/uL) 0.10 Abs Immat Gran (auto) (0.00 - 0.03 x10 3/uL) 0. 07 H Add Manual Diff NO Immature Gran % (0.0 - 2.0 %) 0.7 Nucleated RBC % (0 - 0 %) 0.0 Nucleated RBCs # (Man) (0.0 - 0.1 x10 3/uL) 0. 00 Microbiology: 07/24 0500 NASAL: MRSA DNA Surveillance Screen - ORD Treatment Prophylaxis Treatment Prophylaxis Drain(s)/tube(s): Drain(s)/tube(s): chest Diagnosis, Assessment Plan Consultants: cardiology, cardiovascular surgery, nephrology Free Text DxA P Notes Free text DxA P notes: NSTEMI, CAD (coronary artery disease), S/P CABG X 5 ON 07/08- STABLE, CARD/CTS SEEN, TX TO SNF ON THURSDAY, EF 30-35% patient presented with NSTEMI and found to hve severe CAD. Cardiac cath shows: Left Main - Distal 70% LAD - Proximal 80% with another 60% and 70% les sions Cir - Proximal 80%,mid 80-90%, Distal 70% and O M 60% RCA - large dominant with proximal 40%, Mid 60% . Echo: ef 30-34%, mod hypokinesis of entire myoc ardium, grade 1 diastolic dysfunction Patient on ASA, plavix, BB and Statin on amiodarone, Beta-tomas as tolerated for lo w BP, Acute systolic heart failure - STABLE, NO CHARLY/BB DUE TO LOW BP, ON MIDODRINE PRN , EF 30-35% Echocardiac with estimated LVEF of 30 to 34% wi grade 1 diastolic dysfunction -s/p Lasix 20 mg twice daily 07/05 -on metoprolol 12.5 mg bid on hold now, BP low -no ACEI/ spironolactione for CLAUDETTE -Start GDMT prior to discharge -Await LifeVest 07/22 - LIFEVEST at bedside. CLAUDETTE (acute kidney injury) DUE TO POST-OBS NEPHRO REMY - ON HD MWF, RENAL/UROL SEEN, NEEDS SNF WITH DIALYSIS ACCESS, CONT WATERS , FLOMAX, CAP SEWER FROM 7.0 TO 4.3 No prior Hx of renal disease. hx of BPH and casimiro ated with Fosamax w/o improvement nd continue to h ave difficulty urinating. On admission was found to be on acute renal filaure and had received HD tw ice prior to arrival here ( thursday and thursday). 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 BPH (benign prostatic hyperplasia) - ABOVE, O N WATERS Started on Flomax at the previous hospital, thais l continue with it. Waters catheter in place, continue Waters cathete r as per nephrology 07/05 Goiter Hx of Goiter and surgical resection. TSH 3.33, within normal limits. Patient is not on Thyroid medication. RXT LEUKOCYTOSIS - STABLE, NO INFECTION DEBILITY - OT/PT SEEN, SNF TX SOON UTI continue Rocephin for empiric treatment pend ing results of urine culture No growth for 48 hours DVT prophylaxis: Heparin 5000 units every 8 hour s Diet: Cardiac diet CODE STATUS: Full code Disposition: Status post CABG x5 on 07/09, hemodia lysis as per nephrology. Worked with PT in his room, on 2 L oxygen via na cj cannula. PT/OT on board. Await LifeVest and SNF placement 07/22- awaiting SNF. lifevest arranged. 07/23 stable, awaiting SNF placement 07/24- awaiting SNF Quality: Gen Med Crit Care VTE Prophylaxis VTE prophylaxis initiated: yes Advanced Care Plan 65 or Older Discussed with: patient Discussion included: living will (none), power of employment law attorney (none), code status ( full code) Electronically Signed by Jesus Larson MD on 07/09 11/28 at 1201 RPT #:[id number] END OF REPORT 2022-07-24 11:48:00-00:00 [facility] ([facility] Nephrology Progress Note REPORT#:[id number] REPORT STATUS: Signed DATE:07/24/22 TIME: 1148 PATIENT: SHERRI ARCE UNIT #: [id number] [place] [facility] [place] AGE: 81 SEX: M ATTEND: Maryam Crawford DO ADM AUTHOR: Evelina Plaza MD * ALL edits or amendments must be made on the el ectronic/computer document * Subjective Chief complaint: Feeling okay and has no complaints at this time. Objective General VS/I O: Vital Signs: Date Time Temp Pulse Resp B/P B/P Pulse O2 O2 F low FiO2 Mean Ox Delivery Rate 07/24 1244 98 Room air 21 07/24 1209 97.9 80 18 135/74 94.3 98 07/24 0926 95 Room air 21 07/24 0702 97.9 84 18 106/62 76.2 94 07/24 0421 98.1 84 13 117/60 0.0 92 Room air 07/23 2347 98.2 86 13 115/57 0.0 94 Room air 07/23 2035 95 Room air 07/23 2031 98.2 85 13 123/58 0.0 96 Room air 07/23 1655 97.5 93 22 112/58 0.0 99 24 hour I O ending at 0700: 07/24 0700 07/23 1900 Intake Total 700 1120 Output Total 1000 2700 Balance -300 -1580 Intake, Oral 700 1120 Number 1 Bowel Movements Output, 1000 Hemodialysis Output, Urine 1000 1700 Patient 85.1 kg Weight Weight Standing scale Measurement Method PATIENT WEIGHT: Weight (lb): 187 Weight (oz): 9.81 Weight (kg): 85.100 Medications Active Meds + DC'd Last 24 Hrs Midodrine (PROAMATINE) 5 MG 0900,1300,1700 PRN P O Sodium Chloride (SODIUM CHLORIDE) 10 ML ASDIR IV Amiodarone HCl (CORDARONE) 200 MG BID PO Ipratropium Kersey (ATROVENT) 500 MCG RTQ2H PRN PRN INH Lactulose (LACTULOSE) 20 GM DAILY PRN PRN PO Cyanocobalamin (Vitamin B-12 500 mcg tab) 500 MC G DAILY PO Ferrous Sulfate (FERROUS SULFATE) 325 MG DAILY P O Bisacodyl (DULCOLAX) 10 MG ONCE PRN RECTAL Atorvastatin Calcium (LIPITOR) 40 MG 2100 PO Clopidogrel Bisulfate (Plavix) 75 MG DAILY PO Polyethylene Glycol (MIRALAX) 17 GM DAILY PO Pantoprazole (PROTONIX) 40 MG DAILY@0600 PO Aspirin (ASPIRIN) 81 MG DAILY PO Docusate Sodium (COLACE) 100 MG BID PO Sennosides (Senna Lax 8.6 MG TABLET) 17.2 MG BED TIME PO Ipratropium Kersey (ATROVENT) 500 MCG RTQ4H INH Acetaminophen (TYLENOL) 650 MG Q4H PRN PRN PO Acetaminophen (TYLENOL) 650 MG Q4H PRN PRN RECTA L Dextrose/Water (DEXTROSE 10% IN WATER) 125 ML DIR PRN IV (CKD) Dextrose/Water (DEXTROSE 10% IN WATER) 250 ML DIR PRN IV (CKD) Glucagon (GLUCAGON) 1 MG ASDIR PRN IM Magnesium Sulfate (MAGNESIUM SULFATE 4GM/SWFI 10 0ML) 100 ML ASDIR PRN IV Magnesium Sulfate (MAGNESIUM SULFATE 2GM/SWFI 50 ML) 50 ML ASDIR PRN IV Magnesium Sulfate/Dextrose (MAGNESIUM SULFATE 1G M/D5W 100ML) 100 ML ASDIR PRN IV Ondansetron HCl (ZOFRAN) 4 MG Q6H PRN PRN IV Albumin Human (ALBUMINAR-25%) 12.5 GM ASDIR PRN IV Heparin Sodium (Porcine) (HEPARIN SODIUM) 3,000 UNIT ASDIR PRN DIALYSIS Lidocaine HCl (LIDOCAINE HCL/PF) 0.5 ML ASDIR NV N I-DERMAL (CKD) Mannitol (Mannitol 20%) 12.5 GM ASDIR PRN IV Sodium Chloride (SODIUM CHLORIDE 0.9%) 2,000 ML ASDIR PRN IV Tamsulosin HCl (Flomax 0.4 mg) 0.4 MG BEDTIME PO Physical Exam General appearance: alert, awake Head/eyes: atraumatic, normocephalic ENT: moist mucous membranes, normal nose Neck: non-tender, no JVD Cardiovascular: regular rate and rhythm Respiratory: clear to auscultation Abdomen: non-tender, soft Genitourinary: no bladder distention Extremities: no edema, no swelling 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ALTH: alert, oriented X 3, normal speech Skin: dry, intact Results Findings/Data: Laboratory Tests 07/24 07/24 0449 0449 Chemistry Sodium (134 - 147 mEq/L) 144 Potassium (3.4 - 5.0 mEq/L) 4.0 Chloride (100 - 108 mEq/L) 111 H Carbon Dioxide (21 - 33 mEq/l) 26 Anion Gap (0 - 20) 10 BUN (7 - 18 mg/dL) 40 H Creatinine (0.6 - 1.3 mg/dL) 3.4 H Glomerular Filtr Rate (70 - 80) 17.6 L Glucose (70 - 110 mg/dL) 85 Calcium (8.0 - 10.5 mg/dL) 8.4 Magnesium (1.80 - 2.40 mg/dL) 1.87 Laboratory Tests 07/24 0449 Hematology WBC (4.5 - 11.0 x10 3/uL) 10.4 RBC (4.00 - 5.60 x10 6/uL) 2.63 L Hgb (12.5 - 16.9 g/dL) 7.8 L Hct (37.5 - 50.7 %) 25.0 L MCV (81.0 - 99.0 fL) 95.1 MCH (27.0 - 33.0 pg) 29.7 MCHC (33.0 - 37.0 g/dL) 31.2 L RDW (11.5 - 14.5 %) 16.1 H Plt Count (150 - 400 x10 3/uL) 331 MPV (7.0 - 9.0 fL) 10.4 H Neut % (Auto) (56.0 - 77.0 %) 68.8 Lymph % (Auto) (14.0 - 32.0 %) 9.8 L [place] % (Auto) (4.8 - 9.0 %) 8.7 Eos % (Auto) (0.3 - 3.7 %) 11.0 H Baso % (Auto) (0.0 - 2.0 %) 1.0 Neut # (Auto) (2.0 - 7.6 x10 3/uL) 7.17 Lymph # (Auto) (1.0 - 3.8 x10 3/uL) 1.02 [place] # (Auto) (0.1 - 0.8 x10 3/uL) 0.90 H Eos # (Auto) (0.0 - 0.2 x10 3/uL) 1.14 H Baso # (Auto) (0.0 - 0.2 x10 3/uL) 0.10 Abs Immat Gran (auto) (0.00 - 0.03 x10 3/uL) 0. 07 H Add Manual Diff NO Immature Gran % (0.0 - 2.0 %) 0.7 Nucleated RBC % (0 - 0 %) 0.0 Nucleated RBCs # (Man) (0.0 - 0.1 x10 3/uL) 0.0 0 Treatment Prophylaxis Treatment Prophylaxis Drain(s)/tube(s): Drain(s)/tube(s): chest Diagnosis, Assessment Plan Free Text A P: Assessment: 1-CLAUDETTE likely from urinary retention with underlying CKD. oliguric CLAUDETTE now post op, and shock. 2- non-STEMI: multivessel disease w main left. 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 Waters catheter is in place. 4-severe bilateral hydronephrosis 5- shock : Cardiogenic resolved. 6-hyperlipidemia 7- AGMA resolved. Plan: - unknown Scr baseline. -will be getting HD MWF here. Tolerated HD yeste rday with UF 1 L. Still has excellent urine output volume. - Ultrasound showed severe bilateral hyd ronephrosis and medical renal disease. Urology seen and recommended Waters catheter when discharged home with Flomax, and outpatient follow-up. - He underwent LHC on 07/03. - Started on HD on 07/04. - s/p CABG X5 on 07/08 -TDC placed 07/15. -still has residual renal function with Adequate urine output volume but no clearance. -Obtain 24 cr cl 7 ml/min. Pending placement arrangement. Consultants: cardiology, cardiovascular surgery, nephrology Electronically Signed by Evelina Plaza MD on at 1409 RPT #:[id number] END OF REPORT 2022-07-24 08:38:00-00:00 HCACL [facility] ([facility] Cardiology Progress Note REPORT#:[id number] REPORT STATUS: Signed DATE:07/24/22 TIME: 837 PATIENT: SHERRI ARCE UNIT #: [id number] ROOM/BED: [address] : 42 AGE: 81 SEX: M ATTEND: Jesus Larson MD ADM AUTHOR: Jyoti Browning NP * ALL edits or amendments must be made on the el [employer]/computer document * Subjective Chief complaint: Doing okay. Objective General VS/I O: Laboratory Tests 07/24/22 0449: [Embedded Image Not Available] 07/23/22 0425: [Embedded Image Not Available] Current Medications Sig/Earl Start time Last Medication Dose Route Stop Time Status Admin Midodrine 5 MG 0900,1300,1700 PRN 07/17 2100 AC 07/24 PO 08/16 205 1004 Sodium Chloride 10 ML ASDIR 07/17 1030 AC IV 08/16 1029 Amiodarone HCl 200 MG BID 07/16 0900 AC 07/24 PO 08/15 0859 1005 Ipratropium Kersey 500 MCG RTQ2H PRN PRN 07/11 1821 AC 07/10 INH 08/10 1820 1302 Lactulose 20 GM DAILY PRN PRN 07/11 1245 AC 02 3 PO 08/10 1244 1411 Cyanocobalamin 500 MCG DAILY 07/11 09 AC 07/24 PO 08/10 0859 1004 Ferrous Sulfate 325 MG DAILY 07/11 09 AC 07/24 PO 08/10 0859 1005 Bisacodyl 10 MG ONCE PRN 07/10 1200 AC 07/11 RECTAL 08/09 1159 0928 Atorvastatin Calcium 40 MG 2100 07/09 2099 AC PO 08/08 205 2044 Clopidogrel Bisulfate 75 MG DAILY 07/09 09 AC 07/24 PO 08/08 0859 1004 Polyethylene Glycol 17 GM DAILY 07/09 09 AC PO 08/08 0859 1008 Pantoprazole 40 MG DAILY@0600 07/09 06 AC 07/09 6 PO 08/08 0559 0610 Aspirin 81 MG DAILY 07/09 0020 AC 07/24 PO 08/08 0019 1004 Docusate Sodium 100 MG BID 07/08 2100 AC 07/24 PO 08/07 2058 1008 Sennosides 17.2 MG BEDTIME 07/08 2100 AC 07/22 PO 08/07 205 2054 Ipratropium Kersey 500 MCG RTQ4H 07/08 1900 AC 07/24 INH 08/07 1859 0926 Acetaminophen 650 MG Q4H PRN PRN 07/08 1830 AC 07/24 PO 08/07 1829 1005 Acetaminophen 650 MG Q4H PRN PRN 07/08 1830 AC RECTAL 08/07 1829 Dextrose/Water 125 ML ASDIR PRN 07/08 1830 CKD IV 08/07 1829 Dextrose/Water 250 ML ASDIR PRN 07/08 1830 CKD IV 08/07 1829 Glucagon 1 MG ASDIR PRN 07/08 1830 AC IM 08/07 1829 Magnesium Sulfate 100 ML ASDIR PRN 07/08 1830 AC IV 08/07 1829 Magnesium Sulfate 50 ML ASDIR PRN 07/08 1830 AC 07/21 IV 08/07 1829 1034 Magnesium Sulfate/ 100 ML ASDIR PRN 07/08 1830 A C 07/16 Dextrose IV 08/07 1829 0650 Ondansetron HCl 4 MG Q6H PRN PRN 07/08 1830 AC IV 08/07 1829 Albumin Human 12.5 GM ASDIR PRN 07/03 1200 AC 0 07/10 IV 08/03 1155 1327 Heparin Sodium 3,000 UNIT ASDIR PRN 07/03 1200 A C 07/23 (Porcine) DIALYSIS 08/02 1159 0927 Lidocaine HCl 0.5 ML ASDIR PRN 07/03 1200 CKD I-DERMAL 08/03 1155 Mannitol 12.5 GM ASDIR PRN 07/03 1200 AC IV 08/03 1155 Sodium Chloride 2,000 ML ASDIR PRN 07/03 1200 AC 07/23 IV 08/03 1155 0926 Tamsulosin HCl 0.4 MG BEDTIME 07/02 2145 AC PO 08/01 214 2045 24 hour I O ending at 0700: 07/24 0700 07/23 1900 Intake Total 700 1120 Output Total 1000 2700 Balance -300 -1580 Intake, Oral 700 1120 Number 1 Bowel Movements Output, 1000 Hemodialysis Output, Urine 1000 1700 Patient 85.1 kg Weight Weight Standing scale Measurement Method Vital Signs: Date Time Temp Pulse Resp B/P B/P Pulse O2 O2 F low FiO2 Mean Ox Delivery Rate 07/24 07 36.6 84 18 106/62 76.2 94 07/24 0421 36.7 84 13 117/60 0.0 92 Room air 07/23 2347 36.8 86 13 115/57 0.0 94 Room air 07/23 203 95 Room air 07/23 203 36.8 85 13 123/58 0.0 96 Room air 07/23 1655 36.4 93 22 112/58 0.0 99 07/23 1139 36.7 82 22 116/57 0.0 95 PATIENT WEIGHT: Weight (lb): 187 Weight (oz): 9.81 Weight (kg): 85.100 Status post: 1/31/23 CABG x 5 (MISTRY-LAD, SVG-Ladonna, SVG-OM1< SV G-OM3, SVG-PDA) ALAA Physical Exam General appearance: alert, awake, oriented, no a cute distress, pleasant Head/Eyes: atraumatic ENT: moist mucosal membranes Neck: no JVD Cardiovascular: CV assessment: regular rate and rhythm, no murm ur Respiratory: decreased breath sounds, no distres s Abdomen: soft, non-tender, normal bowel sounds, no distention, no guarding Upper extremity: UE assessment: normal temperature, no edema Lower extremity: LE assessment: normal temperature, no edema Musculoskeletal: normal inspection 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ALTH: alert, oriented X 3, normal speech Skin: dry Psychiatry: normal affect Diagnosis, Assessment Plan Problem List/A P: 1. HTN (hypertension) 2. CLAUDETTE (acute kidney injury) 3. CAD (coronary artery disease) 4. Dyslipidemia 5. BPH (benign prostatic hyperplasia) Free Text DxA P Notes Free Text DxA P Notes: Mr. Arce is a pleasant 81 y/o M w/ PMHx: HTN, HLD presented to [facility] on 06/28/22 for chest pa in and sob. He was diagnosed NSTEMI. LHC showed multivessel CAD. Transferred to [facility] for CABG. 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 urology consulted for bladded outlet obstructio n and hydronephrosis, started on Flomax HD per nephro - HTN. bp stable, midodrine as needed - HLD. On statins. - Anemia. monitor Patient has been doing well. CM working on discharge arrangements Electronically Signed by Jyoti Browning LAUNDRY ASSISTANT on 0 07/24/22 at 1111 Electronically Signed by Liset Ennis MD on at 0859 RPT #:[id number] END OF REPORT 2022-07-23 19:00:00-00:00 [facility] Rehab Progress Note REPORT#:[id number] REPORT STATUS: Signed DATE:07/23/22 TIME: 1899 PATIENT: SHERRI ARCE UNIT #: [id number] ROOM/BED: [place] [address] : 42 AGE: 81 SEX: M ATTEND: Maryam Crawford DO ADM AUTHOR: Florencia Washburn LAUNDRY ASSISTANT * ALL edits or amendments must be made on the [email or web address] document * Subjective Chief complaint: Rehab follow-up Denies pain or sob Pleasant Denies NAIK/N/V/D/CP 14 systems reviewed and neg. except that above. Objective General VS: Vital Signs: Date Time Temp Pulse Resp B/P B/P Pulse O2 O2 F low FiO2 Mean Ox Delivery Rate 07/23 1655 97.5 93 22 112/58 0.0 99 07/23 1139 98.1 82 22 116/57 0.0 95 07/23 0943 93 Room air 07/23 08 97.3 91 22 94/50 0.0 97 07/23 0417 98.6 83 13 108/55 0.0 94 Room air 07/23 0010 98.6 83 13 120/57 0.0 95 Room air 07/226 98 Room air 07/22 1934 98.1 84 13 124/59 0.0 97 Room air PATIENT WEIGHT: Weight (lb): 188 Weight (oz): 7.92 Weight (kg): 85.500 Medications: Active Meds + DC'd Last 24 Hrs Midodrine (PROAMATINE) 5 MG 0900,1300,1700 PRN P O Sodium Chloride (SODIUM CHLORIDE) 10 ML ASDIR IV Amiodarone HCl (CORDARONE) 200 MG BID PO Ipratropium Kersey (ATROVENT) 500 MCG RTQ2H PRN PRN INH Lactulose (LACTULOSE) 20 GM DAILY PRN PRN PO Cyanocobalamin (Vitamin B-12 500 mcg tab) 500 MC G DAILY PO Ferrous Sulfate (FERROUS SULFATE) 325 MG DAILY P O Bisacodyl (DULCOLAX) 10 MG ONCE PRN RECTAL Atorvastatin Calcium (LIPITOR) 40 MG 2100 PO Clopidogrel Bisulfate (Plavix) 75 MG DAILY PO Polyethylene Glycol (MIRALAX) 17 GM DAILY PO Pantoprazole (PROTONIX) 40 MG DAILY@0600 PO Aspirin (ASPIRIN) 81 MG DAILY PO Docusate Sodium (COLACE) 100 MG BID PO Sennosides (Senna Lax 8.6 MG TABLET) 17.2 MG BED TIME PO Ipratropium Kersey (ATROVENT) 500 MCG RTQ4H INH Acetaminophen (TYLENOL) 650 MG Q4H PRN PRN PO Acetaminophen (TYLENOL) 650 MG Q4H PRN PRN RECTA L Dextrose/Water (DEXTROSE 10% IN WATER) 125 ML DIR PRN IV (CKD) Dextrose/Water (DEXTROSE 10% IN WATER) 250 ML DIR PRN IV (CKD) Glucagon (GLUCAGON) 1 MG ASDIR PRN IM Magnesium Sulfate (MAGNESIUM SULFATE 4GM/SWFI 10 0ML) 100 ML ASDIR PRN IV Magnesium Sulfate (MAGNESIUM SULFATE 2GM/SWFI 50 ML) 50 ML ASDIR PRN IV Magnesium Sulfate/Dextrose (MAGNESIUM SULFATE 1G M/D5W 100ML) 100 ML ASDIR PRN IV Ondansetron HCl (ZOFRAN) 4 MG Q6H PRN PRN IV Albumin Human (ALBUMINAR-25%) 12.5 GM ASDIR PRN IV Heparin Sodium (Porcine) (HEPARIN SODIUM) 3,000 UNIT ASDIR PRN DIALYSIS Lidocaine HCl (LIDOCAINE HCL/PF) 0.5 ML ASDIR NV N I-DERMAL (CKD) Mannitol (Mannitol 20%) 12.5 GM ASDIR PRN IV Sodium Chloride (SODIUM CHLORIDE 0.9%) 2,000 ML ASDIR PRN IV Tamsulosin HCl (Flomax 0.4 mg) 0.4 MG BEDTIME PO Physical Exam General appearance: alert, awake Psych: alert, oriented x 3 HEENT: anicteric, sclera clear Neck: supple, no JVD Cardiovascular: regular rate rhythm, S1/S2 Respiratory: aerating well, clear bilaterally Abdomen: bowel sounds present, non-distended, so ft Skin: intact, no rash Musculoskeletal - general: Musculoskeletal - general: joints normal, meagan l muscle mass, normal tone 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ALTH: alert, oriented X 3, CNII-XII intact Results Findings/Data: Laboratory Tests: 07/23 07/23 0425 0425 Chemistry Sodium (134 - 147 mEq/L) 143 Potassium (3.4 - 5.0 mEq/L) 4.2 Chloride (100 - 108 mEq/L) 109 H Carbon Dioxide (21 - 33 mEq/l) 24 Anion Gap (0 - 20) 14 BUN (7 - 18 mg/dL) 48 H Creatinine (0.6 - 1.3 mg/dL) 4.1 H Glomerular Filtr Rate (70 - 80) 14.1 L Glucose (70 - 110 mg/dL) 79 Calcium (8.0 - 10.5 mg/dL) 8.5 Magnesium (1.80 - 2.40 mg/dL) 2.00 Hematology WBC (4.5 - 11.0 x10 3/uL) 11.6 H RBC (4.00 - 5.60 x10 6/uL) 2.56 L Hgb (12.5 - 16.9 g/dL) 7.5 L Hct (37.5 - 50.7 %) 24.7 L MCV (81.0 - 99.0 fL) 96.5 MCH (27.0 - 33.0 pg) 29.3 MCHC (33.0 - 37.0 g/dL) 30.4 L RDW (11.5 - 14.5 %) 16.2 H Plt Count (150 - 400 x10 3/uL) 352 MPV (7.0 - 9.0 fL) 10.5 H Neut % (Auto) (56.0 - 77.0 %) 71.0 Lymph % (Auto) (14.0 - 32.0 %) 8.3 L [place] % (Auto) (4.8 - 9.0 %) 8.2 Eos % (Auto) (0.3 - 3.7 %) 10.8 H Baso % (Auto) (0.0 - 2.0 %) 0.8 Neut # (Auto) (2.0 - 7.6 x10 3/uL) 8.26 H Lymph # (Auto) (1.0 - 3.8 x10 3/uL) 0.96 L [place] # (Auto) (0.1 - 0.8 x10 3/uL) 0.95 H Eos # (Auto) (0.0 - 0.2 x10 3/uL) 1.25 H Baso # (Auto) (0.0 - 0.2 x10 3/uL) 0.09 Abs Immat Gran (auto) (0.00 - 0.03 x10 3/uL) 0. 10 H Add Manual Diff NO Immature Gran % (0.0 - 2.0 %) 0.9 Nucleated RBC % (0 - 0 %) 0.0 Nucleated RBCs # (Man) (0.0 - 0.1 x10 3/uL) 0.0 0 Diagnosis, Assessment Plan Free Text A P: Non-STEMI Multivessel CAD S/p CABG x5 Physical deconditioning Impaired mobility and gait Postoperative anemia Dyslipidemia Hypertension CLAUDETTE Acute systolic heart failure Hemodynamic issues postop Leukocytosis trending down Pleural effusion and atelectasis Plan: Continue PT/OT Out of bed to chair Work on strength, bed mobility, transfers, gait Sternal precaution Increase endurance Fall precautions Monitor p.o. intake and nutrition Strict decubitus precautions Monitor anemia. Persistent left pneumothorax. IR guided pigtail place. CXR shows expansion of the lung Urology consulted -Pt on Flomax Nephrology managing renal issues and elevated K+ Utilize IS to reduce atelectasis Advance therapies as tolerated Pt lives alone and has 5 to 6 stairs to enter ho use SNF order has been placed. Will require insurance approval for SNF , dialysis clinic acceptance, approval for LifeVest prior to discharge SNF waiting for inservice on LIfe vest Ambulating 500ft SPV NO DME Total time was 35 minutes > 50% with patient per forming physical examination, discussing plan of care, goals, therapies, progr ess, medications, labs, SNF. All questions answered Rehab attestation: Face to face exam completed. Treatment plan disc ussed with patient. at 1902 RPT #:[id number] END OF REPORT 2022-07-23 14:47:00-00:00 HCACL [facility] Hospitalist Progress Note REPORT#:[id number] REPORT STATUS: Signed DATE:07/23/22 TIME: 1447 PATIENT: SHERRI ARCE UNIT #: [id number] ROOM/BED: [place] [address] : 42 AGE: 81 SEX: M ATTEND: Maryam Crawford DO ADM AUTHOR: Los Crawford DO * ALL edits or amendments must be made on the [email or web address] document * Subjective Chief complaint: No new complaints Objective General VS/I O: Vital Signs: Date Time Temp Pulse Resp B/P B/P Pulse O2 O2 F low FiO2 Mean Ox Delivery Rate 07/23 1139 98.1 82 22 116/57 0.0 95 07/23 0943 93 Room air 07/23 0827 97.3 91 22 94/50 0.0 97 07/23 0417 98.6 83 13 108/55 0.0 94 Room air 07/23 0010 98.6 83 13 120/57 0.0 95 Room air 07/22 2046 98 Room air 07/22 1934 98.1 84 13 124/59 0.0 97 Room air 07/22 1600 97.9 84 20 137/69 0.0 97 24 hour I O ending at 0700: 07/23 0700 07/22 1900 Intake Total 3870 Output Total 800 1600 Balance -800 2270 Intake, Oral 3870 Number 1 Bowel Movements Output, Urine 800 1600 Patient 85.5 kg Weight Weight Standing scale Measurement Method PATIENT WEIGHT: Weight (lb): 188 Weight (oz): 7.92 Weight (kg): 85.500 Physical Exam General appearance: alert, awake, oriented Head/Eyes: atraumatic, EOMI, normal conjunctiva/ sclera, normocephalic, PERRLA ENT: moist mucosal membranes Neck: no JVD Cardiovascular: normal heart sounds, regular rat e rhythm Respiratory: aerating well, clear to auscultatio n, symmetric expansion, no distress Abdomen: non-tender, normal bowel sounds , soft, no distention, no guarding, no rebound Genitourinary: urinary catheter Extremities: no edema Musculoskeletal: normal inspection 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ALTH: normal speech, no motor deficits, no sensory deficits Skin: intact, normal color, no rash Psychiatry: normal affect Treatment Prophylaxis Treatment Prophylaxis Drain(s)/tube(s): Drain(s)/tube(s): chest Diagnosis, Assessment Plan Consultants: cardiology, cardiovascular surgery, nephrology Free Text DxA P Notes Free text DxA P notes: NSTEMI, CAD (coronary artery disease), S/P CABG X 5 ON 07/08- STABLE, CARD/CTS SEEN, TX TO SNF ON THURSDAY, EF 30-35% patient presented with NSTEMI and found to hve severe CAD. Cardiac cath shows: Left Main - Distal 70% LAD - Proximal 80% with another 60% and 70% les sions Cir - Proximal 80%,mid 80-90%, Distal 70% and O M 60% RCA - large dominant with proximal 40%, Mid 60% . Echo: ef 30-34%, mod hypokinesis of entire myoc ardium, grade 1 diastolic dysfunction Patient on ASA, plavix, BB and Statin on amiodarone, Beta-tomas as tolerated for lo w BP, Acute systolic heart failure - STABLE, NO CHARLY/BB DUE TO LOW BP, ON MIDODRINE PRN , EF 30-35% Echocardiac with estimated LVEF of 30 to 34% wi grade 1 diastolic dysfunction -s/p Lasix 20 mg twice daily 07/05 -on metoprolol 12.5 mg bid on hold now, BP low -no ACEI/ spironolactione for CLAUDETTE -Start GDMT prior to discharge -Await LifeVest 07/22 - LIFEVEST at bedside. CLAUDETTE (acute kidney injury) DUE TO POST-OBS NEPHRO REMY - ON HD MWF, RENAL/UROL SEEN, NEEDS SNF WITH DIALYSIS ACCESS, CONT WATERS , FLOMAX, CAP SEWER FROM 7.0 TO 4.3 No prior Hx of renal disease. hx of BPH and casimiro ated with Fosamax w/o improvement nd continue to h ave difficulty urinating. On admission was found to be on acute renal filaure and had received HD tw ice prior to arrival here ( thursday and thursday). 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 BPH (benign prostatic hyperplasia) - ABOVE, O N WATERS Started on Flomax at the previous hospital, thais l continue with it. Waters catheter in place, continue Waters cathete r as per nephrology 07/05 Goiter Hx of Goiter and surgical resection. TSH 3.33, within normal limits. Patient is not on Thyroid medication. RXT LEUKOCYTOSIS - STABLE, NO INFECTION DEBILITY - OT/PT SEEN, SNF TX SOON UTI continue Rocephin for empiric treatment pend ing results of urine culture No growth for 48 hours DVT prophylaxis: Heparin 5000 units every 8 hour s Diet: Cardiac diet CODE STATUS: Full code Disposition: Status post CABG x5 on 07/09, hemodia lysis as per nephrology. Worked with PT in his room, on 2 L oxygen via na cj cannula. PT/OT on board. Await LifeVest and SNF placement 07/22- awaiting SNF. lifevest arranged. 07/23 stable, awaiting SNF placement Quality: Gen Med Crit Care VTE Prophylaxis VTE prophylaxis initiated: yes Advanced Care Plan 65 or Older Discussed with: patient Discussion included: living will (none), power of employment law attorney (none), code status ( full code) at 1448 RPT #:[id number] END OF REPORT 2022-07-23 10:28:00-00:00 [facility]L [facility] Cardiothoracic Surgery Prog REPORT#:[id number] REPORT STATUS: Signed DATE:07/23/22 TIME: 1028 PATIENT: SHERRI ARCE UNIT #: [id number] RO[address]BED: [address] : 42 AGE: 81 SEX: M ATTEND: Srinath Kaur MD ADM AUTHOR: Rosalind Toribio * ALL edits or amendments must be made on the el [employer]/computer document * General Post-op: day 10 Status post: 07/08/22 CABG x 5 (MISTRY-LAD, SVG-Ladonna, SVG-OM1< SVG-OM3, S VG-PDA) ALEXIS TATUM (RGSV) Subjective Chief complaint: s/p CABG no complaints Review of Systems Constitutional: Denies: chills, fever, malaise. Allergy/Immun: Denies: allergic reaction. Respiratory: Denies: SOB. Cardiovascular: Denies: chest pain, palpitations. GI: Denies: abdominal pain, nausea, vomiting. : Denies: dysuria, hematuria. Heme: Denies: bleeding. Neuro: Denies: dizziness, headache, vision change. All systems rev neg: except as marked Objective General VS/I O Last Documented: Result Date Time Pulse Ox 93 07/23 942 O2 Delivery Room air 07/23 942 B/P 94/50 07/23 826 B/P Mean 0.0 07/23 826 Temp 97.3 07/23 08 Pulse 91 07/23 08 Resp 22 07/23 08 FiO2 21 07/21 2034 O2 Flow Rate 3 07/14 1151 24 hour I O ending at 0700: 07/23 0700 07/22 1900 Intake Total 3870 Output Total 800 1600 Balance -800 2270 Intake, Oral 3870 Number 1 Bowel Movements Output, Urine 800 1600 Patient 188 lb Weight Weight Standing scale Measurement Method PATIENT WEIGHT: Weight (lb): 188 Weight (oz): 7.92 Weight (kg): 85.500 Physical Exam General appearance: alert, oriented, mental stat us normal, no respiratory distress Wound/incision: Location: sternal Site condition: edges approximated, incision in tact, no drainage, no ecchymosis, no erythema HEENT: anicteric, mucosal membranes moist Neck: supple/no meningismus Cardiovascular: normal heart sounds, regular rat e rhythm Respiratory: aerating well, symmetric expansion, no distress Abdomen: soft, non-tender, no distention Genitourinary: waters Extremities: moves all 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: alert, oriented X 3, normal speech, n o motor deficits Psychiatry: normal affect, normal mood Current Medications Medications: Active Meds + DC'd Last 24 Hrs Midodrine (PROAMATINE) 5 MG 0900,1300,1700 PRN P O Sodium Chloride (SODIUM CHLORIDE) 10 ML ASDIR IV Amiodarone HCl (CORDARONE) 200 MG BID PO Ipratropium Kersey (ATROVENT) 500 MCG RTQ2H PRN PRN INH Lactulose (LACTULOSE) 20 GM DAILY PRN PRN PO Cyanocobalamin (Vitamin B-12 500 mcg tab) 500 MC G DAILY PO Ferrous Sulfate (FERROUS SULFATE) 325 MG DAILY P O Bisacodyl (DULCOLAX) 10 MG ONCE PRN RECTAL Atorvastatin Calcium (LIPITOR) 40 MG 2100 PO Clopidogrel Bisulfate (Plavix) 75 MG DAILY PO Polyethylene Glycol (MIRALAX) 17 GM DAILY PO Pantoprazole (PROTONIX) 40 MG DAILY@0600 PO Aspirin (ASPIRIN) 81 MG DAILY PO Docusate Sodium (COLACE) 100 MG BID PO Sennosides (Senna Lax 8.6 MG TABLET) 17.2 MG BED TIME PO Ipratropium Kersey (ATROVENT) 500 MCG RTQ4H INH Acetaminophen (TYLENOL) 650 MG Q4H PRN PRN PO Acetaminophen (TYLENOL) 650 MG Q4H PRN PRN RECTA L Dextrose/Water (DEXTROSE 10% IN WATER) 125 ML DIR PRN IV (CKD) Dextrose/Water (DEXTROSE 10% IN WATER) 250 ML DIR PRN IV (CKD) Glucagon (GLUCAGON) 1 MG ASDIR PRN IM Magnesium Sulfate (MAGNESIUM SULFATE 4GM/SWFI 10 0ML) 100 ML ASDIR PRN IV Magnesium Sulfate (MAGNESIUM SULFATE 2GM/SWFI 50 ML) 50 ML ASDIR PRN IV Magnesium Sulfate/Dextrose (MAGNESIUM SULFATE 1G M/D5W 100ML) 100 ML ASDIR PRN IV Ondansetron HCl (ZOFRAN) 4 MG Q6H PRN PRN IV Albumin Human (ALBUMINAR-25%) 12.5 GM ASDIR PRN IV Heparin Sodium (Porcine) (HEPARIN SODIUM) 3,000 UNIT ASDIR PRN DIALYSIS Lidocaine HCl (LIDOCAINE HCL/PF) 0.5 ML ASDIR NV N I-DERMAL (CKD) Mannitol (Mannitol 20%) 12.5 GM ASDIR PRN IV Sodium Chloride (SODIUM CHLORIDE 0.9%) 2,000 ML ASDIR PRN IV Tamsulosin HCl (Flomax 0.4 mg) 0.4 MG BEDTIME PO Results Findings/Data: Laboratory Tests 07/23 07/23 0425 0425 Chemistry Sodium (134 - 147 mEq/L) 143 Potassium (3.4 - 5.0 mEq/L) 4.2 Chloride (100 - 108 mEq/L) 109 H Carbon Dioxide (21 - 33 mEq/l) 24 Anion Gap (0 - 20) 14 BUN (7 - 18 mg/dL) 48 H Creatinine (0.6 - 1.3 mg/dL) 4.1 H Glomerular Filtr Rate (70 - 80) 14.1 L Glucose (70 - 110 mg/dL) 79 Calcium (8.0 - 10.5 mg/dL) 8.5 Magnesium (1.80 - 2.40 mg/dL) 2.00 Laboratory Tests 07/23 0425 Hematology WBC (4.5 - 11.0 x10 3/uL) 11.6 H RBC (4.00 - 5.60 x10 6/uL) 2.56 L Hgb (12.5 - 16.9 g/dL) 7.5 L Hct (37.5 - 50.7 %) 24.7 L MCV (81.0 - 99.0 fL) 96.5 MCH (27.0 - 33.0 pg) 29.3 MCHC (33.0 - 37.0 g/dL) 30.4 L RDW (11.5 - 14.5 %) 16.2 H Plt Count (150 - 400 x10 3/uL) 352 MPV (7.0 - 9.0 fL) 10.5 H Neut % (Auto) (56.0 - 77.0 %) 71.0 Lymph % (Auto) (14.0 - 32.0 %) 8.3 L [place] % (Auto) (4.8 - 9.0 %) 8.2 Eos % (Auto) (0.3 - 3.7 %) 10.8 H Baso % (Auto) (0.0 - 2.0 %) 0.8 Neut # (Auto) (2.0 - 7.6 x10 3/uL) 8.26 H Lymph # (Auto) (1.0 - 3.8 x10 3/uL) 0.96 L [place] # (Auto) (0.1 - 0.8 x10 3/uL) 0.95 H Eos # (Auto) (0.0 - 0.2 x10 3/uL) 1.25 H Baso # (Auto) (0.0 - 0.2 x10 3/uL) 0.09 Abs Immat Gran (auto) (0.00 - 0.03 x10 3/uL) 0. 10 H Add Manual Diff NO Immature Gran % (0.0 - 2.0 %) 0.9 Nucleated RBC % (0 - 0 %) 0.0 Nucleated RBCs # (Man) (0.0 - 0.1 x10 3/uL) 0.0 0 Treatment Prophylaxis Treatment Prophylaxis Drain(s)/tube(s): Drain(s)/tube(s): chest Quality: Trauma Gen Surg Advanced Care Plan 65 or Older Discussed with: patient Discussion included: living will (none), power of employment law attorney (none), code status ( full code) Diagnosis, Assessment Plan Hospital course to date: This is a 81-year-old gentleman who presented to an outside hospital with complaints of chest pains while walking at his home on Thursday. He denies any previous history of coronary artery disease or o ther NE. He was seen and evaluated at [facility]. He was found to have a urinary tract infection with urinary retention and acute kidne y. He was started on dialysis via a left femoral temporary catheter. He underw ent dialysis on Thursday, Thursday. Renal has been consulted During his work-up at outside hospital he underw ent Left heart catheterization showing sever e Left Main 70%. LAD: Proximal diffuse 80% stenosis and then diffuse 60% in the midsegment and on the distal segment, there is focal 70% stenosis. Diagonal branches w ith luminal irregularities. Left circumflex, codominant circulation with pro ximal 80%, mid 80 to 90% and then in the OM, there is proximal 60%, distal le ft circumflex has a 70% stenosis. RCA large and dominant with proximal 4 0% stenosis, mid 60% stenosis and then diffuse 50% stenosi s all the way distally and the PLV and the PDA with luminal irregularities. CV surgery consulted for evaluation for coronary bypass graft. CAROTIDS - No carotid stenosis CT chest complete IMPRESSION: Small bilateral pleural effusions with bibasila r atelectasis. Echo: 1. Left ventricle: The cavity size is at the upp er limits of normal. Wall thickness is mildly increased. Systolic fu nction is severely reduced. The estimated ejection fraction is 30- 34%. Moderate hypokinesis of the entire myocardium. Doppler p arameters are consistent with abnormal left ventricular relax ation (grade 1 diastolic dysfunction). 2. Pericardium, extracardiac: A small pericardia l effusion is identified along the left ventricular free wall, along the right ventricular free wall, and along the right atrial free wall . Assessment/Plan 1) CAD Mutlivessel Will obtain echo,carotids. 2) CLAUDETTE Started dialysis on Creatine 7.3 Renal consulted. 3) BPH- Urinary retention. Waters in place Workup for CABG underway. Will get functional assessment with PT. PFT pending Carotid dopplers- No disease Echo Pending Dialyiss per Renal. Baseline Cr unknown. 07/04 07/04 Doing well today, alert, up in the chair. Denies chest pain Echocardiogram showed LVEF 30 to 34%, mild MR, t rivial TR CT chest images reviewed Encourage I-S and mobilization Creatinine 5.5 from 7.3, good urine output. Pao l US showed bilateral severe hydronephrosis. Plan for HD today and tomorrow Will tentatively schedule patient for surgery on Thursday. Patient seen and plan reviewed with Dr Schwarz 07/05 Remains in a stable condition, denies chest pain BUN 53, creatinine 5.4. Plan for hemodia lysis today and tomorrow for clearance He is also on Lasix 20 mg IV twice daily, urine output 1.1 L overnight We will calculate risk of surgery with STS score Encourage I-S and mobilization Will tentatively schedule patient for surgery on Thursday. Pt seen and plan reviewed with Dr Schwarz 07/06 BUN 36, creatinine 4.4. Plan for hemodialysis to day Awaiting CABG tomorrow Surgery, risks involved, STS score, benefits, co mplications and alternatives were explained to the patient. He acknow ledged understanding and is willing to proceed N.p.o. after midnight Patient seen and plan reviewed with Dr. Schwarz 07/09/22 POD 1 CABG x 5 (MISTRY-LAD, SVG-Ladonna, SVG-OM1< SVG-OM3, S VG-PDA), RC ESPINOZA (RGSV) Patient hemodynamically unstable, on epi at 4, a nd vaso .04, decreased uop overnight- 150cc Started patient on CRRT 2k/3.5 Wean epi as tolerated, Cardiac incex 2.8-3 labs and chest x-ray reviewed, electroly marcie stable, hgb 6.5- transfuse 2 units PRBC On 4l nasal cannula- encourage incentive spirome ter and deep breathing Keep both chest tubes and monitor outputs Glycemic control on insulin drip Cardiac diet Bowel regimen protocol Pain management SCDs for DVT and PPI for GI prophylaxis PT/OT Monitor patient closely in CVICU Plan of care discussed with Dr. Schwarz 07/10/22 POD 2 Patient alert, awake, and oriented, no distres n oted labs and CXR reviewed stable Breathing comfortably on 3l nasal cannula- wean as tolerated to melissa O2 sats > 92 % Encourage I-S use and deep breathing On CRRT- able to remove 2.9L overnight- nephrolo gy following Cardiac index 3.1- wean off epi drip Keep chest tubes for now and monitor outputs Transition to sliding scale insulin- cardiac t Try to get patient out of bed to chair today- am bulate with PT/OT SCDs for DVT prophylaxis Keep patient in CVICU for close monitoring 07/11/22 POD 3 Patient in stable condition, overnight e vents noted- decreased urine output 35 ml last night-started on dopamine gtt for renal perfusion Cardiac index 3.5- epi currently at 2- will disc ontinue today, vasopressin at 0.02, added low dose midodrine 2.5 mg TID, repea t echocardiogram. Renal Following- trial Lasix Patient has Left femoral tem p dialysis cath, Will need tunneled dialysis IJ cath placed if need dialysis. On 5l nasal cannula- wean off as tolerat ed, encourage incentive spirometer and deep breathing Keep left pleural chest tube and monitor output- > 200 cc Tolerating diet, bowel regimen protocol PT/OT- patient out of bed to chair today- encour age ambulation DVT prophylaxis with SCDs Monitor patient closely in CVICU Plan discussed with multidisciplinary team Plan discussed with Dr Schwarz/ Dr Rodríguez 07/12/22 POD 5, Patient resting comfortable. Patient with hx of urinary r etention- After standing today- voided 1.4 L. Needs Urology consult for retention K 5.4- HD in progress. Dr Plaza following. CT output 20- DC today. Pacers remain in place. Patient has Left femoral tem p dialysis cath, Re-evaluate on Thursday if ocean transportation intermediary dialysis needed. Card: Remains in sinus rhythm. Respir: on 7 L NC O2 95% Dispo: Rehab consulted Patient seen and exmained by Dr Rodríguez. Plan discussed with Team 07/13/22 POD 5 Patient with no new complaints. Recieved HD yest erday. Requiring less oxygen, now on 3l nasal cannula- continue to wean off CXR reviewed left apical pne umothorax 4cm/30%, Chest tube drained 140 overnight, placed back on suction to clear pneumo, CT drianed 200cc th is AM. on suction. Labs reviewed- stable, decreased WBC, hgb stable , CR 3.9 Eating welll, +BM UO- 550CC, BP improved on midodrine. Continue PT/OT, ambulation and incentive spirome ter use Rehab folowing Monitor in ICU today Disucssed with Dr Schwarz- Adeola Graves femoral line and Central line today. DC art line. Will re-eval need for dialysis cath Thursday. Cons ider tunnelled cath if need. Patient seen and examined by Dr Rodríguez. Plan discussed with Care team. 07/14 POD 6 Patient in stable condition, no distress noted Remains on room air, O2 sats > 92%, encourage I- S use and deep breathing CXR shows moderate left apical pneumothorax unch anged CT remained on suction, no airleak no Consult IR for pigtail chest tube placement this morning Cardiac/renal diet Labs reviewed- K 5.1- repeat labs K 4.8 Nephrology following Continue therapy with PT/OT Follow up with urology for waters catheter- Dr Hunter carrera consulted. Monitor in CVICU Plan of care discussed with Dr Schwarz and multi disciplinary team 07/15/22 POD 7 Patient alert, awake, and oriented, no distress, no complaints at this time Breathing comfortable on room air CXR shows resolved pneumothorax LP and pigtail chest tube- no air leak noted, mi nimal output from LP 40 overnight Labs reviewed, K 5.2- corrected, follow up with nephrology to discuss need for dialysis Trend labs this afternoon Bowel regimen, +gas Waters catheter discontinued per urology- voiding trial this AM Ambulation and incentive spirometer use encour ed DVT prophylaxis with SCDs Keep in ICU DISP: SNF- Case management Discussed plan of care with multidisciplinary te bandar and Dr. Schwarz 07/16/2022 POD 8 Patient doing well, alert, awake, and oriented O2 sats 93% on room air, encourage I-S CXR stable- no pneumo noted Left pigtail chest tube - no air leak, clamped t his morning, repeat CXR Placement of tunneled dialysis catheter (BioFlo DuraMax 28 cm) yesterday HD treatment done yesterday evening, plan for HD treatment today per nephrology Patient failed voiding trial, waters catheter rep laced- follow up with urology Eating well Continue PT/OT- ambulation Transfer to CV 1 intermediate care unit Discharge planning for SNF- CM following and to set up dialysis chair Patient seen with Dr. Allie louis and discussed plan of care with multidisciplinary team. 07/17/22 Patient in stable condition, no complaints Labs and CXR reviewed- stable Left pigtail chest tube discontinued yesterday- no pneumo noted Remains on room air, no distress- I-S encouraged Cardiac diet, +BM Keep waters per urology f/u outpt, continue floma x HD per nephrology- CM to setup outpt dialysis ch air Awaiting bed availability on CV 1 Discharge planning- SNF Plan of care discussed with multidisciplinary david portillo and Dr. Schwarz. 07/18 Patient in stable condition, no complaints Remains on room air, no distress- I-S encouraged Epicardial pacing wires discontinued. Limited ec ho to rule out pericardial effusion Keep waters per urology f/u outpt, continue floma x HD per nephrology- to setup outpt dialysis ch air Discharge planning- SNF Plan of care discussed with multidisciplinary advid portillo and Dr. Schwarz. 07/19 No new events Echocardiogram done, report pending HD per nephrology- to setup outpt dialysis ch air [facility] Patient seen and plan reviewed with Dr. Schwarz 07/20 Remains in a stable condition. Echocardiogram showed LVEF 30 to 34%, trivial pe ricardial effusion HD schedule per nephrology Awaiting insurance approval for SNF 07/21 No complaints today HD schedule per nephrology Awaiting insurance approval for SNF Encourage I-S and mobilization 07/22 Remains in stable condition Continue current management. Aspirin, Plavix, statin. Did not tolerate metoprolol, on midodrine 5 mg 3 times daily WBCs trending down Awaiting insurance approval for SNF 07/23 No new events Hemodialysis this mornning Hemodynamically stable, sinus rhythm 80s Awaiting placement Consultants: cardiology, cardiovascular surgery, nephrology at 1102 at 1002 RPT #:[id number] END OF REPORT 2022-07-23 10:21:00-00:00 [facility] ([facility]) Cardiology Progress Note REPORT#:[id number] REPORT STATUS: Signed DATE:07/23/22 TIME: 1021 PATIENT: SHERRI ARCE UNIT #: [id number] ROOM/BED: [place] [id number] : 42 AGE: 81 SEX: M ATTEND: Jesus Larson MD ADM AUTHOR: Sonya Stacy CNP * ALL edits or amendments must be made on the [email or web address] document * Subjective Patient reports: No: complaints. Objective General VS/I O: 24 hour I O ending at 0700: 07/23 0700 07/22 1900 Intake Total 3870 Output Total 800 1600 Balance -800 2270 Intake, Oral 3870 Number 1 Bowel Movements Output, Urine 800 1600 Patient 85.5 kg Weight Weight Standing scale Measurement Method Vital Signs: Date Time Temp Pulse Resp B/P B/P Pulse O2 O2 F low FiO2 Mean Ox Delivery Rate 07/23 0943 93 Room air 07/23 0827 36.3 91 22 94/50 0.0 97 07/23 0417 37.0 83 13 108/55 0.0 94 Room air 07/23 0010 37.0 83 13 120/57 0.0 95 Room air 07/22 2046 98 Room air 07/22 1934 36.7 84 13 124/59 0.0 97 Room air 07/22 1600 36.6 84 20 137/69 0.0 97 07/22 1253 36.8 88 19 108/60 76 94 PATIENT WEIGHT: Weight (lb): 188 Weight (oz): 7.92 Weight (kg): 85.500 Medications: Active Meds + DC'd Last 24 Hrs Midodrine (PROAMATINE) 5 MG 0900,1300,1700 PRN P O Sodium Chloride (SODIUM CHLORIDE) 10 ML ASDIR IV Amiodarone HCl (CORDARONE) 200 MG BID PO Ipratropium Kersey (ATROVENT) 500 MCG RTQ2H PRN PRN INH Lactulose (LACTULOSE) 20 GM DAILY PRN PRN PO Cyanocobalamin (Vitamin B-12 500 mcg tab) 500 MC G DAILY PO Ferrous Sulfate (FERROUS SULFATE) 325 MG DAILY P O Bisacodyl (DULCOLAX) 10 MG ONCE PRN RECTAL Atorvastatin Calcium (LIPITOR) 40 MG 2100 PO Clopidogrel Bisulfate (Plavix) 75 MG DAILY PO Polyethylene Glycol (MIRALAX) 17 GM DAILY PO Pantoprazole (PROTONIX) 40 MG DAILY@0600 PO Aspirin (ASPIRIN) 81 MG DAILY PO Docusate Sodium (COLACE) 100 MG BID PO Sennosides (Senna Lax 8.6 MG TABLET) 17.2 MG BED TIME PO Ipratropium Kersey (ATROVENT) 500 MCG RTQ4H INH Acetaminophen (TYLENOL) 650 MG Q4H PRN PRN PO Acetaminophen (TYLENOL) 650 MG Q4H PRN PRN RECTA L Dextrose/Water (DEXTROSE 10% IN WATER) 125 ML DIR PRN IV (CKD) Dextrose/Water (DEXTROSE 10% IN WATER) 250 ML DIR PRN IV (CKD) Glucagon (GLUCAGON) 1 MG ASDIR PRN IM Magnesium Sulfate (MAGNESIUM SULFATE 4GM/SWFI 10 0ML) 100 ML ASDIR PRN IV Magnesium Sulfate (MAGNESIUM SULFATE 2GM/SWFI 50 ML) 50 ML ASDIR PRN IV Magnesium Sulfate/Dextrose (MAGNESIUM SULFATE 1G M/D5W 100ML) 100 ML ASDIR PRN IV Ondansetron HCl (ZOFRAN) 4 MG Q6H PRN PRN IV Albumin Human (ALBUMINAR-25%) 12.5 GM ASDIR PRN IV Heparin Sodium (Porcine) (HEPARIN SODIUM) 3,000 UNIT ASDIR PRN DIALYSIS Lidocaine HCl (LIDOCAINE HCL/PF) 0.5 ML ASDIR NV N I-DERMAL (CKD) Mannitol (Mannitol 20%) 12.5 GM ASDIR PRN IV Sodium Chloride (SODIUM CHLORIDE 0.9%) 2,000 ML ASDIR PRN IV Tamsulosin HCl (Flomax 0.4 mg) 0.4 MG BEDTIME PO Physical Exam General appearance: alert, awake Head/Eyes: atraumatic ENT: moist mucosal membranes Neck: no JVD Cardiovascular: CV assessment: regular rate and rhythm, no murm ur Respiratory: decreased breath sounds, no distres s Abdomen: soft, non-tender, normal bowel sounds, no distention, no guarding Upper extremity: UE assessment: normal temperature, no edema Lower extremity: LE assessment: normal temperature, no edema Musculoskeletal: normal inspection 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ALTH: alert, oriented X 3, normal speech Skin: dry Psychiatry: normal affect Results Findings/Data: Laboratory Tests 07/23 0425 Chemistry Sodium (134 - 147 mEq/L) 143 Potassium (3.4 - 5.0 mEq/L) 4.2 Chloride (100 - 108 mEq/L) 109 H Carbon Dioxide (21 - 33 mEq/l) 24 Anion Gap (0 - 20) 14 BUN (7 - 18 mg/dL) 48 H Creatinine (0.6 - 1.3 mg/dL) 4.1 H Glomerular Filtr Rate (70 - 80) 14.1 L Glucose (70 - 110 mg/dL) 79 Calcium (8.0 - 10.5 mg/dL) 8.5 Magnesium (1.80 - 2.40 mg/dL) 2.00 Laboratory Tests 07/23 424 Hematology WBC (4.5 - 11.0 x10 3/uL) 11.6 H RBC (4.00 - 5.60 x10 6/uL) 2.56 L Hgb (12.5 - 16.9 g/dL) 7.5 L Hct (37.5 - 50.7 %) 24.7 L MCV (81.0 - 99.0 fL) 96.5 MCH (27.0 - 33.0 pg) 29.3 MCHC (33.0 - 37.0 g/dL) 30.4 L RDW (11.5 - 14.5 %) 16.2 H Plt Count (150 - 400 x10 3/uL) 352 MPV (7.0 - 9.0 fL) 10.5 H Neut % (Auto) (56.0 - 77.0 %) 71.0 Lymph % (Auto) (14.0 - 32.0 %) 8.3 L [place] % (Auto) (4.8 - 9.0 %) 8.2 Eos % (Auto) (0.3 - 3.7 %) 10.8 H Baso % (Auto) (0.0 - 2.0 %) 0.8 Neut # (Auto) (2.0 - 7.6 x10 3/uL) 8.26 H Lymph # (Auto) (1.0 - 3.8 x10 3/uL) 0.96 L [place] # (Auto) (0.1 - 0.8 x10 3/uL) 0.95 H Eos # (Auto) (0.0 - 0.2 x10 3/uL) 1.25 H Baso # (Auto) (0.0 - 0.2 x10 3/uL) 0.09 Abs Immat Gran (auto) (0.00 - 0.03 x10 3/uL) 0. 10 H Add Manual Diff NO Immature Gran % (0.0 - 2.0 %) 0.9 Nucleated RBC % (0 - 0 %) 0.0 Nucleated RBCs # (Man) (0.0 - 0.1 x10 3/uL) 0.0 0 Laboratory Tests 07/23 0425 Chemistry Magnesium (1.80 - 2.40 mg/dL) 2.00 Results: labs reviewed, vital signs reviewed, [facility] personally rev'd Telemetry Interpretation: Sinus rhythm Diagnosis, Assessment Plan Plan discussed with: patient, nurse Free Text DxA P Notes Free Text DxA P Notes: Mr. Arce is a pleasant 81 y/o M w/ PMHx: HTN, HLD presented to [facility] on 06/28/22 for chest pa in and sob. He was diagnosed NSTEMI. LHC showed multivessel CAD. Transferred to [facility] for CABG. 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 urology consulted for bladded outlet obstructio n and hydronephrosis, started on Flomax HD per nephro - HTN. bp stable, midodrine as needed - HLD. On statins. - Anemia. monitor Patient has been doing well. Waiting for dialysis chair and SNF acceptance at 1606 Electronically Signed by Liset Ennis MD on at 0859 RPT #:[id number] END OF REPORT 2022-07-23 08:30:00-00:[address] [facility]) Nephrology Progress Note REPORT#:[id number] REPORT STATUS: Signed DATE:07/23/22 TIME: 829 PATIENT: SHERRI ARCE UNIT #: [id number] ROOM/BED: [place] [address] : 42 AGE: 81 SEX: M ATTEND: Maryam Crawford DO ADM AUTHOR: Evelina Plaza MD * ALL edits or amendments must be made on the [email or web address] document * Subjective Chief complaint: Feeling okay and has no complaints at this time. Objective General VS/I O: Vital Signs: Date Time Temp Pulse Resp B/P B/P Pulse O2 O2 F low FiO2 Mean Ox Delivery Rate 07/23 1655 97.5 93 22 112/58 0.0 99 07/23 1139 98.1 82 22 116/57 0.0 95 07/23 0943 93 Room air 07/23 0827 97.3 91 22 94/50 0.0 97 07/23 0417 98.6 83 13 108/55 0.0 94 Room air 07/23 0010 98.6 83 13 120/57 0.0 95 Room air 07/22 2046 98 Room air 07/22 1933 98.1 84 13 124/59 0.0 97 Room air 24 hour I O ending at 0700: 07/23 0700 07/22 1900 Intake Total 3870 Output Total 800 1600 Balance -800 2270 Intake, Oral 3870 Number 1 Bowel Movements Output, Urine 800 1600 Patient 85.5 kg Weight Weight Standing scale Measurement Method PATIENT WEIGHT: Weight (lb): 188 Weight (oz): 7.92 Weight (kg): 85.500 Physical Exam General appearance: alert, awake, oriented Head/eyes: atraumatic, normocephalic ENT: moist mucous membranes, normal nose Neck: non-tender, no JVD Cardiovascular: regular rate and rhythm Respiratory: clear to auscultation Abdomen: non-tender, soft Genitourinary: no bladder distention Extremities: no edema, no swelling 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[employer]: alert, oriented X 3, normal speech Skin: dry, intact Results Findings/Data: Laboratory Tests 07/23 0425 Chemistry Sodium (134 - 147 mEq/L) 143 Potassium (3.4 - 5.0 mEq/L) 4.2 Chloride (100 - 108 mEq/L) 109 H Carbon Dioxide (21 - 33 mEq/l) 24 Anion Gap (0 - 20) 14 BUN (7 - 18 mg/dL) 48 H Creatinine (0.6 - 1.3 mg/dL) 4.1 H Glomerular Filtr Rate (70 - 80) 14.1 L Glucose (70 - 110 mg/dL) 79 Calcium (8.0 - 10.5 mg/dL) 8.5 Magnesium (1.80 - 2.40 mg/dL) 2.00 Laboratory Tests 07/23 424 Hematology WBC (4.5 - 11.0 x10 3/uL) 11.6 H RBC (4.00 - 5.60 x10 6/uL) 2.56 L Hgb (12.5 - 16.9 g/dL) 7.5 L Hct (37.5 - 50.7 %) 24.7 L MCV (81.0 - 99.0 fL) 96.5 MCH (27.0 - 33.0 pg) 29.3 MCHC (33.0 - 37.0 g/dL) 30.4 L RDW (11.5 - 14.5 %) 16.2 H Plt Count (150 - 400 x10 3/uL) 352 MPV (7.0 - 9.0 fL) 10.5 H Neut % (Auto) (56.0 - 77.0 %) 71.0 Lymph % (Auto) (14.0 - 32.0 %) 8.3 L [place] % (Auto) (4.8 - 9.0 %) 8.2 Eos % (Auto) (0.3 - 3.7 %) 10.8 H Baso % (Auto) (0.0 - 2.0 %) 0.8 Neut # (Auto) (2.0 - 7.6 x10 3/uL) 8.26 H Lymph # (Auto) (1.0 - 3.8 x10 3/uL) 0.96 L [place] # (Auto) (0.1 - 0.8 x10 3/uL) 0.95 H Eos # (Auto) (0.0 - 0.2 x10 3/uL) 1.25 H Baso # (Auto) (0.0 - 0.2 x10 3/uL) 0.09 Abs Immat Gran (auto) (0.00 - 0.03 x10 3/uL) 0. 10 H Add Manual Diff NO Immature Gran % (0.0 - 2.0 %) 0.9 Nucleated RBC % (0 - 0 %) 0.0 Nucleated RBCs # (Man) (0.0 - 0.1 x10 3/uL) 0.0 0 Treatment Prophylaxis Treatment Prophylaxis Drain(s)/tube(s): Drain(s)/tube(s): chest Diagnosis, Assessment Plan Free Text A P: Assessment: 1-CLAUDETTE likely from urinary retention with underlying CKD. oliguric CLAUDETTE now post op, and shock. 2- non-STEMI: multivessel disease w main left. 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 Waters catheter is in place. 4-severe bilateral hydronephrosis 5- shock : Cardiogenic resolved. 6-hyperlipidemia 7- AGMA resolved. Plan: - unknown Scr baseline. -will be getting HD MWF here. Seen during HD tod ay - Ultrasound showed severe bilateral hyd ronephrosis and medical renal disease. Urology seen and recommended Waters catheter when discharged home with Flomax, and outpatient follow-up. - He underwent LHC on 07/03. - Started on HD on 07/04. - s/p CABG X5 on 07/08 -TDC placed 07/15. -still has residual renal function with Adequate urine output volume but no clearance. -Obtain 24 cr cl 7 ml/min. stble from nephrology for discharge to [facility] Consultants: cardiology, cardiovascular surgery, nephrology Electronically Signed by Evelina Plaza MD on at 1703 RPT #:[id number] END OF REPORT 2022-07-22 21:28:00-00:00 [facility] ([facility] Nephrology Progress Note REPORT#:[id number] REPORT STATUS: Signed DATE:07/22/22 TIME: 2127 PATIENT: SHERRI ARCE UNIT #: [id number] [place] [facility] [place] AGE: 81 SEX: M ATTEND: Maryam Crawford DO ADM AUTHOR: Evelina Plaza MD * ALL edits or amendments must be made on the [email or web address] document * Subjective Chief complaint: Feeling okay and has no complaints at this time. Objective General VS/I O: Vital Signs: Date Time Temp Pulse Resp B/P B/P Pulse O2 O2 F low FiO2 Mean Ox Delivery Rate 07/23 0827 97.3 91 22 94/50 0.0 97 07/23 0417 98.6 83 13 108/55 0.0 94 Room air 07/23 0010 98.6 83 13 120/57 0.0 95 Room air 07/22 2046 98 Room air 07/22 1934 98.1 84 13 124/59 0.0 97 Room air 07/22 1600 97.9 84 20 137/69 0.0 97 07/22 1253 98.2 88 19 108/60 76 94 07/22 0828 94 Room air 24 hour I O ending at 0700: 07/23 0700 07/22 1900 Intake Total 3870 Output Total 800 1600 Balance -800 2270 Intake, Oral 3870 Number 1 Bowel Movements Output, Urine 800 1600 Patient 85.5 kg Weight Weight Standing scale Measurement Method PATIENT WEIGHT: Weight (lb): 188 Weight (oz): 7.92 Weight (kg): 85.500 Medications Active Meds + DC'd Last 24 Hrs Midodrine (PROAMATINE) 5 MG 0900,1300,1700 PRN P O Sodium Chloride (SODIUM CHLORIDE) 10 ML ASDIR IV Amiodarone HCl (CORDARONE) 200 MG BID PO Ipratropium Kersey (ATROVENT) 500 MCG RTQ2H PRN PRN INH Lactulose (LACTULOSE) 20 GM DAILY PRN PRN PO Cyanocobalamin (Vitamin B-12 500 mcg tab) 500 MC G DAILY PO Ferrous Sulfate (FERROUS SULFATE) 325 MG DAILY P O Bisacodyl (DULCOLAX) 10 MG ONCE PRN RECTAL Atorvastatin Calcium (LIPITOR) 40 MG 2100 PO Clopidogrel Bisulfate (Plavix) 75 MG DAILY PO Polyethylene Glycol (MIRALAX) 17 GM DAILY PO Pantoprazole (PROTONIX) 40 MG DAILY@0600 PO Aspirin (ASPIRIN) 81 MG DAILY PO Docusate Sodium (COLACE) 100 MG BID PO Sennosides (Senna Lax 8.6 MG TABLET) 17.2 MG BED TIME PO Ipratropium Kersey (ATROVENT) 500 MCG RTQ4H INH Acetaminophen (TYLENOL) 650 MG Q4H PRN PRN PO Acetaminophen (TYLENOL) 650 MG Q4H PRN PRN RECTA L Dextrose/Water (DEXTROSE 10% IN WATER) 125 ML DIR PRN IV (CKD) Dextrose/Water (DEXTROSE 10% IN WATER) 250 ML DIR PRN IV (CKD) Glucagon (GLUCAGON) 1 MG ASDIR PRN IM Magnesium Sulfate (MAGNESIUM SULFATE 4GM/SWFI 10 0ML) 100 ML ASDIR PRN IV Magnesium Sulfate (MAGNESIUM SULFATE 2GM/SWFI 50 ML) 50 ML ASDIR PRN IV Magnesium Sulfate/Dextrose (MAGNESIUM SULFATE 1G M/D5W 100ML) 100 ML ASDIR PRN IV Ondansetron HCl (ZOFRAN) 4 MG Q6H PRN PRN IV Albumin Human (ALBUMINAR-25%) 12.5 GM ASDIR PRN IV Heparin Sodium (Porcine) (HEPARIN SODIUM) 3,000 UNIT ASDIR PRN DIALYSIS Lidocaine HCl (LIDOCAINE HCL/PF) 0.5 ML ASDIR NV N I-DERMAL (CKD) Mannitol (Mannitol 20%) 12.5 GM ASDIR PRN IV Sodium Chloride (SODIUM CHLORIDE 0.9%) 2,000 ML ASDIR PRN IV Tamsulosin HCl (Flomax 0.4 mg) 0.4 MG BEDTIME PO Physical Exam Head/eyes: atraumatic, normocephalic ENT: moist mucous membranes, normal nose Neck: non-tender, no JVD Cardiovascular: regular rate and rhythm Respiratory: clear to auscultation Abdomen: non-tender, soft Genitourinary: no bladder distention Extremities: no edema, no swelling 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ALTH: alert, oriented X 3, normal speech Skin: dry, intact Treatment Prophylaxis Treatment Prophylaxis Drain(s)/tube(s): Drain(s)/tube(s): chest Diagnosis, Assessment Plan Free Text A P: Assessment: 1-CLAUDETTE likely from urinary retention with underlying CKD. oliguric CLAUDETTE now post op, and shock. 2- non-STEMI: multivessel disease w main left. 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 Waters catheter is in place. 4-severe bilateral hydronephrosis 5- shock : Cardiogenic resolved. 6-hyperlipidemia 7- AGMA resolved. Plan: - unknown Scr baseline. -will be getting HD MWF here. HD in am. - Ultrasound showed severe bilateral hyd ronephrosis and medical renal disease. Urology seen and recommended Waters catheter when discharged home with Flomax, and outpatient follow-up. - He underwent LHC on 07/03. - Started on HD on 07/04. - s/p CABG X5 on 07/08 -TDC placed 07/15. -still has residual renal function with Adequate urine output volume but no clearance. -Obtain 24 cr cl 7 ml/min. stble from nephrology for discharge to [facility] Consultants: cardiology, cardiovascular surgery, nephrology Electronically Signed by Evelina Plaza MD on at 0830 RPT #:[id number] END OF REPORT 2022-07-22 17:40:00-00:00 [facility] Progress Note REPORT#:[id number] REPORT STATUS: Signed DATE:07/22/22 TIME: 1740 PATIENT: SHERRI ARCE UNIT #: [id number] ROOM/BED: [place] [address] : 42 AGE: 81 SEX: M ATTEND: Maryam Crawford DO ADM AUTHOR: Florencia Washburn LAUNDRY ASSISTANT * ALL edits or amendments must be made on the [employer]/computer document * Subjective Chief complaint: Rehab follow-up Denies pain or sob Pleasant Denies NAIK/N/V/D/CP 14 systems reviewed and neg. except that above. Objective General VS: Vital Signs: Date Time Temp Pulse Resp B/P B/P Pulse O2 O2 F low FiO2 Mean Ox Delivery Rate 07/22 1600 97.9 84 20 137/69 0.0 97 07/22 1253 98.2 88 19 108/60 76 94 07/22 0828 94 Room air 07/22 0806 98.8 93 20 118/57 0.0 94 07/22 0416 98.8 86 13 118/57 77.2 90 Room air 07/21 2330 98.8 80 12 118/64 82.2 93 Room air 07/21 2034 98 Room air 21 07/21 1933 99.1 82 13 120/63 82.3 92 Room air PATIENT WEIGHT: Weight (lb): 191 Weight (oz): 9.31 Weight (kg): 86.900 Medications: Active Meds + DC'd Last 24 Hrs Midodrine (PROAMATINE) 5 MG 0900,1300,1700 PRN P O Sodium Chloride (SODIUM CHLORIDE) 10 ML ASDIR IV Amiodarone HCl (CORDARONE) 200 MG BID PO Ipratropium Kersey (ATROVENT) 500 MCG RTQ2H PRN PRN INH Lactulose (LACTULOSE) 20 GM DAILY PRN PRN PO Cyanocobalamin (Vitamin B-12 500 mcg tab) 500 MC G DAILY PO Ferrous Sulfate (FERROUS SULFATE) 325 MG DAILY P O Bisacodyl (DULCOLAX) 10 MG ONCE PRN RECTAL Atorvastatin Calcium (LIPITOR) 40 MG 2100 PO Clopidogrel Bisulfate (Plavix) 75 MG DAILY PO Polyethylene Glycol (MIRALAX) 17 GM DAILY PO Pantoprazole (PROTONIX) 40 MG DAILY@0600 PO Aspirin (ASPIRIN) 81 MG DAILY PO Docusate Sodium (COLACE) 100 MG BID PO Sennosides (Senna Lax 8.6 MG TABLET) 17.2 MG BED TIME PO Ipratropium Kersey (ATROVENT) 500 MCG RTQ4H INH Acetaminophen (TYLENOL) 650 MG Q4H PRN PRN PO Acetaminophen (TYLENOL) 650 MG Q4H PRN PRN RECTA L Dextrose/Water (DEXTROSE 10% IN WATER) 125 ML DIR PRN IV (CKD) Dextrose/Water (DEXTROSE 10% IN WATER) 250 ML DIR PRN IV (CKD) Glucagon (GLUCAGON) 1 MG ASDIR PRN IM Magnesium Sulfate (MAGNESIUM SULFATE 4GM/SWFI 10 0ML) 100 ML ASDIR PRN IV Magnesium Sulfate (MAGNESIUM SULFATE 2GM/SWFI 50 ML) 50 ML ASDIR PRN IV Magnesium Sulfate/Dextrose (MAGNESIUM SULFATE 1G M/D5W 100ML) 100 ML ASDIR PRN IV Ondansetron HCl (ZOFRAN) 4 MG Q6H PRN PRN IV Albumin Human (ALBUMINAR-25%) 12.5 GM ASDIR PRN IV Heparin Sodium (Porcine) (HEPARIN SODIUM) 3,000 UNIT ASDIR PRN DIALYSIS Lidocaine HCl (LIDOCAINE HCL/PF) 0.5 ML ASDIR NV N I-DERMAL (CKD) Mannitol (Mannitol 20%) 12.5 GM ASDIR PRN IV Sodium Chloride (SODIUM CHLORIDE 0.9%) 2,000 ML ASDIR PRN IV Tamsulosin HCl (Flomax 0.4 mg) 0.4 MG BEDTIME P O Physical Exam General appearance: alert, awake Psych: alert, oriented x 3 HEENT: anicteric, sclera clear Neck: supple, no JVD Cardiovascular: regular rate rhythm, S1/S2 Respiratory: aerating well, clear bilaterally Abdomen: bowel sounds present, non-distended, so ft Skin: intact, no rash Musculoskeletal - general: Musculoskeletal - general: joints normal, meagan l muscle mass, normal tone 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ALTH: alert, oriented X 3, CNII-XII intact Results Findings/Data: Laboratory Tests: 07/22 07/22 0315 0315 Chemistry Sodium (134 - 147 mEq/L) 143 Potassium (3.4 - 5.0 mEq/L) 4.1 Chloride (100 - 108 mEq/L) 109 H Carbon Dioxide (21 - 33 mEq/l) 26 Anion Gap (0 - 20) 13 BUN (7 - 18 mg/dL) 35 H Creatinine (0.6 - 1.3 mg/dL) 3.3 H Glomerular Filtr Rate (70 - 80) 18.3 L Glucose (70 - 110 mg/dL) 94 Calcium (8.0 - 10.5 mg/dL) 8.1 Magnesium (1.80 - 2.40 mg/dL) 2.00 Hematology WBC (4.5 - 11.0 x10 3/uL) 13.5 H RBC (4.00 - 5.60 x10 6/uL) 2.62 L Hgb (12.5 - 16.9 g/dL) 7.7 L Hct (37.5 - 50.7 %) 24.8 L MCV (81.0 - 99.0 fL) 94.7 MCH (27.0 - 33.0 pg) 29.4 MCHC (33.0 - 37.0 g/dL) 31.0 L RDW (11.5 - 14.5 %) 16.1 H Plt Count (150 - 400 x10 3/uL) 344 MPV (7.0 - 9.0 fL) 9.9 H Neut % (Auto) (56.0 - 77.0 %) 75.6 Lymph % (Auto) (14.0 - 32.0 %) 7.3 L [place] % (Auto) (4.8 - 9.0 %) 6.8 Eos % (Auto) (0.3 - 3.7 %) 8.6 H Baso % (Auto) (0.0 - 2.0 %) 0.7 Neut # (Auto) (2.0 - 7.6 x10 3/uL) 10.21 H Lymph # (Auto) (1.0 - 3.8 x10 3/uL) 0.99 L [place] # (Auto) (0.1 - 0.8 x10 3/uL) 0.92 H Eos # (Auto) (0.0 - 0.2 x10 3/uL) 1.17 H Baso # (Auto) (0.0 - 0.2 x10 3/uL) 0.10 Abs Immat Gran (auto) (0.00 - 0.03 x10 3/uL) 0. 14 H Add Manual Diff NO Immature Gran % (0.0 - 2.0 %) 1.0 Nucleated RBC % (0 - 0 %) 0.0 Nucleated RBCs # (Man) (0.0 - 0.1 x10 3/uL) 0.0 0 Diagnosis, Assessment Plan Free Text A P: Non-STEMI Multivessel CAD S/p CABG x5 Physical deconditioning Impaired mobility and gait Postoperative anemia Dyslipidemia Hypertension CLAUDETTE Acute systolic heart failure Hemodynamic issues postop Leukocytosis trending down Pleural effusion and atelectasis Plan: Continue PT/OT Out of bed to chair Work on strength, bed mobility, transfers, gait Sternal precaution Increase endurance Fall precautions Monitor p.o. intake and nutrition Strict decubitus precautions Monitor anemia. Persistent left pneumothorax. IR guided pigtail place. CXR shows expansion of the lung Urology consulted -Pt on Flomax Nephrology managing renal issues and elevated K+ Utilize IS to reduce atelectasis Advance therapies as tolerated Pt lives alone and has 5 to 6 stairs to enter ho use SNF order has been placed. Will require insurance approval for SNF , dialysis clinic acceptance, approval for [facility] prior to discharge Ambulating 500ft SPV NO DME Total time was 33 minutes > 50% with patient per forming physical examination, discussing plan of care, goals, therapies, progr ess, medications, labs, SNF. All questions answered Rehab attestation: Face to face exam completed. Treatment plan disc ussed with patient. at 1741 RPT #:[id number] END OF REPORT 2022-07-22 14:24:00-00:00 [facility] Pro[facility] REPORT#:[id number] REPORT STATUS: Signed DATE:07/22/22 TIME: 1424 PATIENT: SHERRI ARCE UNIT #: [id number] ROOM/BED: [place] [address] : 42 AGE: 81 SEX: M ATTEND: Srinath Kaur MD ADM AUTHOR: Rosalind Toribio LAUNDRY ASSISTANT * ALL edits or amendments must be made on the [employer]/computer document * General Post-op: day 10 Status post: 07/08/22 CABG x 5 (MISTRY-LAD, SVG-Ladonna, SVG-OM1< SVG-OM3, S VG-PDA) ALEXIS TATUM (RGSV) Subjective Chief complaint: s/p CABG no complaints Review of Systems Constitutional: Denies: chills, fever, malaise. Allergy/Immun: Denies: allergic reaction. Respiratory: Denies: SOB. Cardiovascular: Denies: chest pain, palpitations. GI: Denies: abdominal pain, nausea, vomiting. : Denies: dysuria, hematuria. Heme: Denies: bleeding. Neuro: Denies: dizziness, headache, vision change. All systems rev neg: except as marked Objective General VS/I O Last Documented: Result Date Time Pulse Ox 94 07/22 1253 B/P 108/60 07/22 1253 B/P Mean 76 07/22 1253 Temp 98.2 07/22 1253 Pulse 88 07/22 1253 Resp 19 07/22 1253 O2 Delivery Room air 07/22 0828 FiO2 21 07/21 203 O2 Flow Rate 3 07/14 1151 24 hour I O ending at 0700: 07/22 0700 07/21 1900 Intake Total 360 800 Output Total 950 1225 Balance -590 -425 Intake, 0 Hemodialysis Intake, Oral 360 800 Number 1 1 Bowel Movements Output, Urine 950 1225 Patient 192 lb Weight Weight Standing scale Measurement Method PATIENT WEIGHT: Weight (lb): 191 Weight (oz): 9.31 Weight (kg): 86.900 Physical Exam General appearance: alert, oriented Wound/incision: Location: sternal Site condition: edges approximated, incision in tact, no drainage, no ecchymosis, no erythema HEENT: anicteric, mucosal membranes moist Neck: supple/no meningismus Cardiovascular: normal heart sounds, regular rat e rhythm Respiratory: aerating well, symmetric expansion, no distress Abdomen: soft, non-tender, no distention Genitourinary: waters Extremities: moves all 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ALTH: alert, oriented X 3, normal speech, n o motor deficits Psychiatry: normal affect, normal mood Current Medications Medications: Active Meds + DC'd Last 24 Hrs Midodrine (PROAMATINE) 5 MG 0900,1300,1700 PRN P O Sodium Chloride (SODIUM CHLORIDE) 10 ML ASDIR IV Amiodarone HCl (CORDARONE) 200 MG BID PO Ipratropium Kersey (ATROVENT) 500 MCG RTQ2H PRN PRN INH Lactulose (LACTULOSE) 20 GM DAILY PRN PRN PO Cyanocobalamin (Vitamin B-12 500 mcg tab) 500 MC G DAILY PO Ferrous Sulfate (FERROUS SULFATE) 325 MG DAILY P O Bisacodyl (DULCOLAX) 10 MG ONCE PRN RECTAL Atorvastatin Calcium (LIPITOR) 40 MG 2100 PO Clopidogrel Bisulfate (Plavix) 75 MG DAILY PO Polyethylene Glycol (MIRALAX) 17 GM DAILY PO Pantoprazole (PROTONIX) 40 MG DAILY@0600 PO Aspirin (ASPIRIN) 81 MG DAILY PO Docusate Sodium (COLACE) 100 MG BID PO Sennosides (Senna Lax 8.6 MG TABLET) 17.2 MG BED TIME PO Ipratropium Kersey (ATROVENT) 500 MCG RTQ4H IN H Acetaminophen (TYLENOL) 650 MG Q4H PRN PRN PO Acetaminophen (TYLENOL) 650 MG Q4H PRN PRN RECTA L Dextrose/Water (DEXTROSE 10% IN WATER) 125 ML A SDIR PRN IV (CKD) Dextrose/Water (DEXTROSE 10% IN WATER) 250 ML DIR PRN IV (CKD) Glucagon (GLUCAGON) 1 MG ASDIR PRN IM Magnesium Sulfate (MAGNESIUM SULFATE 4GM/SWFI 10 0ML) 100 ML ASDIR PRN IV Magnesium Sulfate (MAGNESIUM SULFATE 2GM/SWFI 50 ML) 50 ML ASDIR PRN IV Magnesium Sulfate/Dextrose (MAGNESIUM SULFATE 1G M/D5W 100ML) 100 ML ASDIR PRN IV Ondansetron HCl (ZOFRAN) 4 MG Q6H PRN PRN IV Albumin Human (ALBUMINAR-25%) 12.5 GM ASDIR PRN IV Heparin Sodium (Porcine) (HEPARIN SODIUM) 3,000 UNIT ASDIR PRN DIALYSIS Lidocaine HCl (LIDOCAINE HCL/PF) 0.5 ML ASDIR NV N I-DERMAL (CKD) Mannitol (Mannitol 20%) 12.5 GM ASDIR PRN IV Sodium Chloride (SODIUM CHLORIDE 0.9%) 2,000 ML ASDIR PRN IV Tamsulosin HCl (Flomax 0.4 mg) 0.4 MG BEDTIME PO Results Findings/Data: Laboratory Tests 07/22 07/22 0315 0315 Chemistry Sodium (134 - 147 mEq/L) 143 Potassium (3.4 - 5.0 mEq/L) 4.1 Chloride (100 - 108 mEq/L) 109 H Carbon Dioxide (21 - 33 mEq/l) 26 Anion Gap (0 - 20) 13 BUN (7 - 18 mg/dL) 35 H Creatinine (0.6 - 1.3 mg/dL) 3.3 H Glomerular Filtr Rate (70 - 80) 18.3 L Glucose (70 - 110 mg/dL) 94 Calcium (8.0 - 10.5 mg/dL) 8.1 Magnesium (1.80 - 2.40 mg/dL) 2.00 Laboratory Tests 07/22 0315 Hematology WBC (4.5 - 11.0 x10 3/uL) 13.5 H RBC (4.00 - 5.60 x10 6/uL) 2.62 L Hgb (12.5 - 16.9 g/dL) 7.7 L Hct (37.5 - 50.7 %) 24.8 L MCV (81.0 - 99.0 fL) 94.7 MCH (27.0 - 33.0 pg) 29.4 MCHC (33.0 - 37.0 g/dL) 31.0 L RDW (11.5 - 14.5 %) 16.1 H Plt Count (150 - 400 x10 3/uL) 344 MPV (7.0 - 9.0 fL) 9.9 H Neut % (Auto) (56.0 - 77.0 %) 75.6 Lymph % (Auto) (14.0 - 32.0 %) 7.3 L [place] % (Auto) (4.8 - 9.0 %) 6.8 Eos % (Auto) (0.3 - 3.7 %) 8.6 H Baso % (Auto) (0.0 - 2.0 %) 0.7 Neut # (Auto) (2.0 - 7.6 x10 3/uL) 10.21 H Lymph # (Auto) (1.0 - 3.8 x10 3/uL) 0.99 L [place] # (Auto) (0.1 - 0.8 x10 3/uL) 0.92 H Eos # (Auto) (0.0 - 0.2 x10 3/uL) 1.17 H Baso # (Auto) (0.0 - 0.2 x10 3/uL) 0.10 Abs Immat Gran (auto) (0.00 - 0.03 x10 3/uL) 0. 14 H Add Manual Diff NO Immature Gran % (0.0 - 2.0 %) 1.0 Nucleated RBC % (0 - 0 %) 0.0 Nucleated RBCs # (Man) (0.0 - 0.1 x10 3/uL) 0.0 0 Treatment Prophylaxis Treatment Prophylaxis Drain(s)/tube(s): Drain(s)/tube(s): chest Diagnosis, Assessment Plan Hospital course to date: This is a 81-year-old gentleman who presented to an outside hospital with complaints of chest pains while walking at his home on Thursday. He denies any previous history of coronary artery disease or o ther NE. He was seen and evaluated at [facility]. He was found to have a urinary tract infection with urinary retention and acute kidne y. He was started on dialysis via a left femoral temporary catheter. He underw ent dialysis on Thursday, Thursday. Renal has been consulted During his work-up at outside hospital he underw ent Left heart catheterization showing sever e Left Main 70%. LAD: Proximal diffuse 80% stenosis and then diffuse 60% in the midsegment and on the distal segment, there is focal 70% stenosis. Diagonal branches w ith luminal irregularities. Left circumflex, codominant circulation with pro ximal 80%, mid 80 to 90% and then in the OM, there is proximal 60%, distal le ft circumflex has a 70% stenosis. RCA large and dominant with proximal 4 0% stenosis, mid 60% stenosis and then diffuse 50% stenosi s all the way distally and the PLV and the PDA with luminal irregularities. CV surgery consulted for evaluation for coronary bypass graft. CAROTIDS - No carotid stenosis CT chest complete IMPRESSION: Small bilateral pleural effusions with bibasila r atelectasis. Echo: 1. Left ventricle: The cavity size is at the upp er limits of normal. Wall thickness is mildly increased. Systolic fu nction is severely reduced. The estimated ejection fraction is 30- 34%. Moderate hypokinesis of the entire myocardium. Doppler parameters are consistent with abnormal left ventricular relax ation (grade 1 diastolic dysfunction). 2. Pericardium, extracardiac: A small pericardia l effusion is identified along the left ventricular free wall, along the right ventricular free wall, and along the right atrial free wall . Assessment/Plan 1) CAD Mutlivessel Will obtain echo,carotids. 2) CLAUDETTE Started dialysis on Creatine 7.3 Renal consulted. 3) BPH- Urinary retention. Waters in place Workup for CABG underway. Will get functional assessment with PT. PFT pending Carotid dopplers- No disease Echo Pending Dialyiss per Renal. Baseline Cr unknown. 07/04 07/04 Doing well today, alert, up in the chair. Denies chest pain Echocardiogram showed LVEF 30 to 34%, mild MR, t rivial TR CT chest images reviewed Encourage I-S and mobilization Creatinine 5.5 from 7.3, good urine output. Pao l US showed bilateral severe hydronephrosis. Plan for HD today and tomorrow Will tentatively schedule patient for surgery on Thursday. Patient seen and plan reviewed with Dr Schwarz 07/05 Remains in a stable condition, denies chest pain BUN 53, creatinine 5.4. Plan for hemodia lysis today and tomorrow for clearance He is also on Lasix 20 mg IV twice daily, urine output 1.1 L overnight We will calculate risk of surgery with STS score Encourage I-S and mobilization Will tentatively schedule patient for surgery on Thursday. Pt seen and plan reviewed with Dr Schwarz 07/06 BUN 36, creatinine 4.4. Plan for hemodialysis to day Awaiting CABG tomorrow Surgery, risks involved, STS score, benefits, co mplications and alternatives were explained to the patient. He acknow ledged understanding and is willing to proceed N.p.o. after midnight Patient seen and plan reviewed with Dr. Schwarz 07/09/22 POD 1 CABG x 5 (MISTRY-LAD, SVG-Ladonna, SVG-OM1< SVG-OM3, S VG-PDA), ALAA, EVH (RGSV) Patient hemodynamically unstable, on epi at 4, a nd vaso .04, decreased uop overnight- 150cc Started patient on CRRT 2k/3.5 Wean epi as tolerated, Cardiac incex 2.8-3 labs and chest x-ray reviewed, electroly marcie stable, hgb 6.5- transfuse 2 units PRBC On 4l nasal cannula- encourage incentive spirome ter and deep breathing Keep both chest tubes and monitor outputs Glycemic control on insulin drip Cardiac diet Bowel regimen protocol Pain management SCDs for DVT and PPI for GI prophylaxis PT/OT Monitor patient closely in CVICU Plan of care discussed with Dr. Schwarz 07/10/22 POD 2 Patient alert, awake, and oriented, no distres n oted labs and CXR reviewed stable Breathing comfortably on 3l nasal cannula- wean as tolerated to melissa O2 sats > 92 % Encourage I-S use and deep breathing On CRRT- able to remove 2.9L overnight- nephrolo gy following Cardiac index 3.1- wean off epi drip Keep chest tubes for now and monitor outputs Transition to sliding scale insulin- cardiac t Try to get patient out of bed to chair today- am bulate with PT/OT SCDs for DVT prophylaxis Keep patient in CVICU for close monitoring 07/11/22 POD 3 Patient in stable condition, overnight e vents noted- decreased urine output 35 ml last night-started on dopamine gtt for renal perfusion Cardiac index 3.5- epi currently at 2- will disc ontinue today, vasopressin at 0.02, added low dose midodrine 2.5 mg TID, repea t echocardiogram. Renal Following- trial Lasix Patient has Left femoral tem p dialysis cath, Will need tunneled dialysis IJ cath placed if need dialysis. On 5l nasal cannula- wean off as tolerat ed, encourage incentive spirometer and deep breathing Keep left pleural chest tube and monitor output- > 200 cc Tolerating diet, bowel regimen protocol PT/OT- patient out of bed to chair today- encour age ambulation DVT prophylaxis with SCDs Monitor patient closely in CVICU Plan discussed with multidisciplinary team Plan discussed with Dr Schwarz/ Dr Rodríguez 07/12/22 POD 5, Patient resting comfortable. Patient with hx of urinary r etention- After standing today- voided 1.4 L. Needs Urology consult for retention K 5.4- HD in progress. Dr Plaza following. CT output 20- DC today. Pacers remain in place. Patient has Left femoral tem p dialysis cath, Re-evaluate on Thursday if skilled nursing dialysis needed. Card: Remains in sinus rhythm. Respir: on 7 L NC O2 95% Dispo: Rehab consulted Patient seen and exmained by Dr Rodríguez. Plan discussed with Team 07/13/22 POD 5 Patient with no new complaints. Recieved HD yest erday. Requiring less oxygen, now on 3l nasal cannula- continue to wean off CXR reviewed left apical pne umothorax 4cm/30%, Chest tube drained 140 overnight, placed back on suction to clear pneumo, CT drianed 200cc th is AM. on suction. Labs reviewed- stable, decreased WBC, hgb stable , CR 3.9 Eating welll, +BM UO- 550CC, BP improved on midodrine. Continue PT/OT, ambulation and incentive spirome ter use Rehab folowing Monitor in ICU today Disucssed with Dr Schwarz- Adeola Graves femoral line and Central line today. DC art line. Will re-eval need for dialysis cath Thursday. Cons ider tunnelled cath if need. Patient seen and examined by Dr Rodríguez. Plan discussed with Care team. 07/14 POD 6 Patient in stable condition, no distress noted Remains on room air, O2 sats > 92%, encourage I- S use and deep breathing CXR shows moderate left apical pneumothorax unch anged CT remained on suction, no airleak no Consult IR for pigtail chest tube placement this morning Cardiac/renal diet Labs reviewed- K 5.1- repeat labs K 4.8 Nephrology following Continue therapy with PT/OT Follow up with urology for waters catheter- Dr Hunter carrera consulted. Monitor in CVICU Plan of care discussed with Dr Schwarz and multi disciplinary team 07/15/22 POD 7 Patient alert, awake, and oriented, no distress, no complaints at this time Breathing comfortable on room air CXR shows resolved pneumothorax LP and pigtail chest tube- no air leak noted, mi nimal output from LP 40 overnight Labs reviewed, K 5.2- corrected, follow up with nephrology to discuss need for dialysis Trend labs this afternoon Bowel regimen, +gas Waters catheter discontinued per urology- voiding trial this AM Ambulation and incentive spirometer use encour ed DVT prophylaxis with SCDs Keep in ICU DISP: SNF- Case management Discussed plan of care with multidisciplinary te bandar and Dr. Schwarz 07/16/2022 POD 8 Patient doing well, alert, awake, and oriented O2 sats 93% on room air, encourage I-S CXR stable- no pneumo noted Left pigtail chest tube - no air leak, clamped t his morning, repeat CXR Placement of tunneled dialysis catheter (BioFlo DuraMax 28 cm) yesterday HD treatment done yesterday evening, plan for HD treatment today per nephrology Patient failed voiding trial, waters catheter rep laced- follow up with urology Eating well Continue PT/OT- ambulation Transfer to 1 intermediate care unit Discharge planning for SNF- CM following and to set up dialysis chair Patient seen with Dr. Allie louis and discussed plan of care with multidisciplinary team. 07/17/22 Patient in stable condition, no complaints Labs and CXR reviewed- stable Left pigtail chest tube discontinued yesterday- no pneumo noted Remains on room air, no distress- I-S encouraged Cardiac diet, +BM Keep waters per urology f/u outpt, continue floma x HD per nephrology- CM to setup outpt dialysis ch air Awaiting bed availability on CV 1 Discharge planning- SNF Plan of care discussed with multidisciplinary david portillo and Dr. Schwarz. 07/18 Patient in stable condition, no complaints Remains on room air, no distress- I-S encouraged Epicardial pacing wires discontinued. Limited ec ho to rule out pericardial effusion Keep waters per urology f/u outpt, continue floma x HD per nephrology- CM to setup outpt dialysis ch air Discharge planning- SNF Plan of care discussed with multidisciplinary david portillo and Dr. Schwarz. 07/19 No new events Echocardiogram done, report pending HD per nephrology- to setup outpt dialysis ch air [facility] Patient seen and plan reviewed with Dr. Schwarz 07/20 Remains in a stable condition. Echocardiogram showed LVEF 30 to 34%, trivial pe ricardial effusion HD schedule per nephrology Awaiting insurance approval for SNF 07/21 No complaints today HD schedule per nephrology Awaiting insurance approval for SNF Encourage I-S and mobilization 07/22 Remains in stable condition Continue current management. Aspirin, Plavix, statin. Did not tolerate metoprolol, on midodrine 5 mg 3 times daily WBCs trending down Awaiting insurance approval for SNF Consultants: cardiology, cardiovascular surgery, nephrology at 1427 at 1003 RPT #:[id number] END OF REPORT 2022-07-22 13:31:00-00:00 [facility] Cardiology Progress Note REPORT#:[id number] REPORT STATUS: Signed DATE:07/22/22 TIME: 1331 PATIENT: SHERRI ARCE UNIT #: [id number] ROOM/BED: [place] [address] : 42 AGE: 81 SEX: M ATTEND: Jesus Larson MD ADM AUTHOR: Sonya Stacy CNP * ALL edits or amendments must be made on the [employer]/computer document * Subjective Patient reports: No: complaints. Objective General VS/I O: 24 hour I O ending at 0700: 07/22 0700 07/21 1900 Intake Total 360 800 Output Total 950 1225 Balance -590 -425 Intake, 0 Hemodialysis Intake, Oral 360 800 Number 1 1 Bowel Movements Output, Urine 950 1225 Patient 86.9 kg Weight Weight Standing scale Measurement Method Vital Signs: Date Time Temp Pulse Resp B/P B/P Pulse O2 O2 F low FiO2 Mean Ox Delivery Rate 07/22 1253 36.8 88 19 108/60 76 94 07/22 0828 94 Room air 07/22 0806 37.1 93 20 118/57 0.0 94 07/22 0416 37.1 86 13 118/57 77.2 90 Room air 07/21 2330 37.1 80 12 118/64 82.2 93 Room air 07/21 2034 98 Room air 21 07/21 1933 37.3 82 13 120/63 82.3 92 Room air 07/21 1549 37.1 85 14 116/61 79.7 94 07/21 1456 87 124/59 85 PATIENT WEIGHT: Weight (lb): 191 Weight (oz): 9.31 Weight (kg): 86.900 Medications: Active Meds + DC'd Last 24 Hrs Midodrine (PROAMATINE) 5 MG 0900,1300,1700 PRN P O Sodium Chloride (SODIUM CHLORIDE) 10 ML ASDIR IV Amiodarone HCl (CORDARONE) 200 MG BID PO Ipratropium Kersey (ATROVENT) 500 MCG RTQ2H PRN PRN INH Lactulose (LACTULOSE) 20 GM DAILY PRN PRN PO Cyanocobalamin (Vitamin B-12 500 mcg tab) 500 MC G DAILY PO Ferrous Sulfate (FERROUS SULFATE) 325 MG DAILY P O Bisacodyl (DULCOLAX) 10 MG ONCE PRN RECTAL Atorvastatin Calcium (LIPITOR) 40 MG 2100 PO Clopidogrel Bisulfate (Plavix) 75 MG DAILY PO Polyethylene Glycol (MIRALAX) 17 GM DAILY PO Pantoprazole (PROTONIX) 40 MG DAILY@0600 PO Aspirin (ASPIRIN) 81 MG DAILY PO Docusate Sodium (COLACE) 100 MG BID PO Sennosides (Senna Lax 8.6 MG TABLET) 17.2 MG BED TIME PO Ipratropium Kersey (ATROVENT) 500 MCG RTQ4H INH Acetaminophen (TYLENOL) 650 MG Q4H PRN PRN PO Acetaminophen (TYLENOL) 650 MG Q4H PRN PRN RECTA L Dextrose/Water (DEXTROSE 10% IN WATER) 125 ML DIR PRN IV (CKD) Dextrose/Water (DEXTROSE 10% IN WATER) 250 ML A SDIR PRN IV (CKD) Glucagon (GLUCAGON) 1 MG ASDIR PRN IM Magnesium Sulfate (MAGNESIUM SULFATE 4GM/SWFI 10 0ML) 100 ML ASDIR PRN IV Magnesium Sulfate (MAGNESIUM SULFATE 2GM/SWFI 50 ML) 50 ML ASDIR PRN IV Magnesium Sulfate/Dextrose (MAGNESIUM SULFATE 1G M/D5W 100ML) 100 ML ASDIR PRN IV Ondansetron HCl (ZOFRAN) 4 MG Q6H PRN PRN IV Albumin Human (ALBUMINAR-25%) 12.5 GM ASDIR PRN IV Heparin Sodium (Porcine) (HEPARIN SODIUM) 3,000 UNIT ASDIR PRN DIALYSIS Lidocaine HCl (LIDOCAINE HCL/PF) 0.5 ML ASDIR NV N I-DERMAL (CKD) Mannitol (Mannitol 20%) 12.5 GM ASDIR PRN IV Sodium Chloride (SODIUM CHLORIDE 0.9%) 2,000 ML ASDIR PRN IV Tamsulosin HCl (Flomax 0.4 mg) 0.4 MG BEDTIME PO Status post: 07/08/22 CABG x 5 (MISTRY-LAD, SVG-Ladonna, SVG-OM1< SV G-OM3, SVG-PDA) ALAA Physical Exam General appearance: alert, awake ENT: moist mucosal membranes Neck: no JVD Cardiovascular: CV assessment: regular rate and rhythm, no murm ur Respiratory: decreased breath sounds, no distres s Abdomen: soft, non-tender, normal bowel sounds, no distention, no guarding Upper extremity: UE assessment: normal temperature, no edema Lower extremity: LE assessment: normal temperature, no edema Musculoskeletal: normal inspection 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: alert, oriented X 3, normal speech Skin: dry Psychiatry: normal affect Results Findings/Data: Laboratory Tests 07/22 0315 Chemistry Sodium (134 - 147 mEq/L) 143 Potassium (3.4 - 5.0 mEq/L) 4.1 Chloride (100 - 108 mEq/L) 109 H Carbon Dioxide (21 - 33 mEq/l) 26 Anion Gap (0 - 20) 13 BUN (7 - 18 mg/dL) 35 H Creatinine (0.6 - 1.3 mg/dL) 3.3 H Glomerular Filtr Rate (70 - 80) 18.3 L Glucose (70 - 110 mg/dL) 94 Calcium (8.0 - 10.5 mg/dL) 8.1 Magnesium (1.80 - 2.40 mg/dL) 2.00 Laboratory Tests 07/22 314 Hematology WBC (4.5 - 11.0 x10 3/uL) 13.5 H RBC (4.00 - 5.60 x10 6/uL) 2.62 L Hgb (12.5 - 16.9 g/dL) 7.7 L Hct (37.5 - 50.7 %) 24.8 L MCV (81.0 - 99.0 fL) 94.7 MCH (27.0 - 33.0 pg) 29.4 MCHC (33.0 - 37.0 g/dL) 31.0 L RDW (11.5 - 14.5 %) 16.1 H Plt Count (150 - 400 x10 3/uL) 344 MPV (7.0 - 9.0 fL) 9.9 H Neut % (Auto) (56.0 - 77.0 %) 75.6 Lymph % (Auto) (14.0 - 32.0 %) 7.3 L [place] % (Auto) (4.8 - 9.0 %) 6.8 Eos % (Auto) (0.3 - 3.7 %) 8.6 H Baso % (Auto) (0.0 - 2.0 %) 0.7 Neut # (Auto) (2.0 - 7.6 x10 3/uL) 10.21 H Lymph # (Auto) (1.0 - 3.8 x10 3/uL) 0.99 L [place] # (Auto) (0.1 - 0.8 x10 3/uL) 0.92 H Eos # (Auto) (0.0 - 0.2 x10 3/uL) 1.17 H Baso # (Auto) (0.0 - 0.2 x10 3/uL) 0.10 Abs Immat Gran (auto) (0.00 - 0.03 x10 3/uL) 0 .14 H Add Manual Diff NO Immature Gran % (0.0 - 2.0 %) 1.0 Nucleated RBC % (0 - 0 %) 0.0 Nucleated RBCs # (Man) (0.0 - 0.1 x10 3/uL) 0.0 0 Laboratory Tests 07/22 0315 Chemistry Magnesium (1.80 - 2.40 mg/dL) 2.00 Results: labs reviewed, vital signs reviewed, [facility] personally rev'd Telemetry Interpretation: sinus rhythm Diagnosis, Assessment Plan Plan discussed with: patient Free Text DxA P Notes Free Text DxA P Notes: Mr. Arce is a pleasant 81 y/o M w/ PMHx: HTN, HLD presented to [facility] on 06/28/22 for chest pa in and sob. He was diagnosed NSTEMI. LHC showed multivessel CAD. Transferred to [facility] for CABG. 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 urology consulted for bladded outlet obstructio n and hydronephrosis, started on Flomax HD per nephro - HTN. bp stable, midodrine as needed - HLD. On statins. - Anemia. monitor Doing well VS stable SNF pending at 1333 Electronically Signed by Liset Ennis MD on at 0859 RPT #:[id number] END OF REPORT 2022-07-22 11:06:00-00:00 [facility] Hospitalist Progress Note REPORT#:[id number] REPORT STATUS: Signed DATE:07/22/22 TIME: 1106 PATIENT: SHERRI ARCE UNIT #: [id number] ROOM/BED: [place] [address] : 42 AGE: 81 SEX: M ATTEND: Maryam Crawford DO ADM AUTHOR: Jesus Larson MD * ALL edits or amendments must be made on the [email or web address] document * Subjective Chief complaint: doing fine. no cp. no sob. awaiting SNF transfer . Objective General VS/I O: Vital Signs: Date Time Temp Pulse Resp B/P B/P Pulse O2 O2 F low FiO2 Mean Ox Delivery Rate 07/22 0828 94 Room air 07/22 0806 98.8 93 20 118/57 0.0 94 07/22 0416 98.8 86 13 118/57 77.2 90 Room air 07/21 2330 98.8 80 12 118/64 82.2 93 Room air 07/21 2034 98 Room air 21 07/21 1933 99.1 82 13 120/63 82.3 92 Room air 07/21 1549 98.8 85 14 116/61 79.7 94 07/21 1456 87 124/59 85 07/21 1311 97.8 89 24 131/73 95 Room air 07/21 1309 82 131/73 92 07/21 1245 80 128/66 92 07/21 1200 80 119/61 85 07/21 1130 78 113/57 79 24 hour I O ending at 0700: 07/22 0700 07/21 1900 Intake Total 360 800 Output Total 950 1225 Balance -590 -425 Intake, 0 Hemodialysis Intake, Oral 360 800 Number 1 1 Bowel Movements Output, Urine 950 1225 Patient 86.9 kg Weight Weight Standing scale Measurement Method PATIENT WEIGHT: Weight (lb): 191 Weight (oz): 9.31 Weight (kg): 86.900 Physical Exam General appearance: alert, awake Head/Eyes: atraumatic, EOMI, normal conjunctiva/ sclera, normocephalic, PERRLA ENT: moist mucosal membranes Neck: no JVD Cardiovascular: normal heart sounds, regular rat e rhythm Respiratory: aerating well, clear to auscultatio n, symmetric expansion, no distress Abdomen: non-tender, normal bowel sounds , soft, no distention, no guarding, no rebound Genitourinary: urinary catheter Extremities: no edema Musculoskeletal: normal inspection 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: normal speech, no motor deficits, no sensory deficits Skin: intact, normal color, no rash Psychiatry: normal affect Results Radiology data: Laboratory Tests 07/22/22 0315: [Embedded Image Not Available] 07/21/22 0445: [Embedded Image Not Available] Current Medications Sig/Earl Start time Last Medication Dose Route Stop Time Status Admin Midodrine 5 MG 0900,1300,1700 PRN 07/17 2100 AC 07/19 PO 08/16 2058 0950 Sodium Chloride 10 ML ASDIR 07/17 1030 AC IV 08/16 1029 Amiodarone HCl 200 MG BID 07/16 899 AC 07/22 PO 08/15 0859 1047 Ipratropium Kersey 500 MCG RTQ2H PRN PRN 07/11 1821 AC 07/10 INH 08/10 1820 1302 Lactulose 20 GM DAILY PRN PRN 07/11 1245 AC 02 3 PO 08/10 1244 1411 Cyanocobalamin 500 MCG DAILY 07/11 899 AC 07/22 PO 08/10 0859 1046 Ferrous Sulfate 325 MG DAILY 07/11 899 AC 07/22 PO 08/10 0859 1046 Bisacodyl 10 MG ONCE PRN 07/10 1200 AC 07/11 RECTAL 08/09 1159 0928 Atorvastatin Calcium 40 MG 2100 07/09 2099 AC PO 08/08 205 2038 Clopidogrel Bisulfate 75 MG DAILY 07/09 899 AC 07/22 PO 08/08 0859 1046 Polyethylene Glycol 17 GM DAILY 07/09 09 AC PO 08/08 0859 0941 Pantoprazole 40 MG DAILY@0600 07/09 0600 AC 07/09 4 PO 08/08 0559 0550 Aspirin 81 MG DAILY 07/09 0020 AC 07/22 PO 08/08 0019 1046 Docusate Sodium 100 MG BID 07/08 2099 AC 07/22 PO 08/07 2058 1046 Sennosides 17.2 MG BEDTIME 07/08 2100 AC 07/17 PO 08/07 2058 2100 Ipratropium Kersey 500 MCG RTQ4H 07/08 1900 AC 07/22 INH 08/07 1859 0828 Acetaminophen 650 MG Q4H PRN PRN 07/08 1830 AC 0 07/17 PO 08/07 1829 0620 Acetaminophen 650 MG Q4H PRN PRN 07/08 1830 AC RECTAL 08/07 1829 Dextrose/Water 125 ML ASDIR PRN 07/08 1830 CKD IV 08/07 1829 Dextrose/Water 250 ML ASDIR PRN 07/08 1830 CKD IV 08/07 1829 Glucagon 1 MG ASDIR PRN 07/08 1830 AC IM 08/07 1829 Magnesium Sulfate 100 ML ASDIR PRN 07/08 1830 AC IV 08/07 1829 Magnesium Sulfate 50 ML ASDIR PRN 07/08 1830 AC 07/21 IV 08/07 1829 1034 Magnesium Sulfate/ 100 ML ASDIR PRN 07/08 1830 AC 07/16 Dextrose IV 08/07 1829 0650 Ondansetron HCl 4 MG Q6H PRN PRN 07/08 1830 AC IV 08/07 1829 Albumin Human 12.5 GM ASDIR PRN 07/03 1200 AC IV 08/03 1155 1327 Heparin Sodium 3,000 UNIT ASDIR PRN 07/03 1200 A C 07/21 (Porcine) DIALYSIS 08/02 1159 1301 Lidocaine HCl 0.5 ML ASDIR PRN 07/03 1200 CKD I-DERMAL 08/03 1155 Mannitol 12.5 GM ASDIR PRN 07/03 1200 AC IV 08/03 1155 Sodium Chloride 2,000 ML ASDIR PRN 07/03 1200 AC 07/21 IV 08/03 1155 0946 Tamsulosin HCl 0.4 MG BEDTIME 07/02 2144 AC 07/09 3 PO 08/01 2143 2038 Laboratory Tests: 07/22 07/22 0315 0292 Chemistry Sodium (134 - 147 mEq/L) 143 Potassium (3.4 - 5.0 mEq/L) 4.1 Chloride (100 - 108 mEq/L) 109 H Carbon Dioxide (21 - 33 mEq/l) 26 Anion Gap (0 - 20) 13 BUN (7 - 18 mg/dL) 35 H Creatinine (0.6 - 1.3 mg/dL) 3.3 H Glomerular Filtr Rate (70 - 80) 18.3 L Glucose (70 - 110 mg/dL) 94 Calcium (8.0 - 10.5 mg/dL) 8.1 Magnesium (1.80 - 2.40 mg/dL) 2.00 Hematology WBC (4.5 - 11.0 x10 3/uL) 13.5 H RBC (4.00 - 5.60 x10 6/uL) 2.62 L Hgb (12.5 - 16.9 g/dL) 7.7 L Hct (37.5 - 50.7 %) 24.8 L MCV (81.0 - 99.0 fL) 94.7 MCH (27.0 - 33.0 pg) 29.4 MCHC (33.0 - 37.0 g/dL) 31.0 L RDW (11.5 - 14.5 %) 16.1 H Plt Count (150 - 400 x10 3/uL) 344 MPV (7.0 - 9.0 fL) 9.9 H Neut % (Auto) (56.0 - 77.0 %) 75.6 Lymph % (Auto) (14.0 - 32.0 %) 7.3 L [place] % (Auto) (4.8 - 9.0 %) 6.8 Eos % (Auto) (0.3 - 3.7 %) 8.6 H Baso % (Auto) (0.0 - 2.0 %) 0.7 Neut # (Auto) (2.0 - 7.6 x10 3/uL) 10.21 H Lymph # (Auto) (1.0 - 3.8 x10 3/uL) 0.99 L [place] # (Auto) (0.1 - 0.8 x10 3/uL) 0.92 H Eos # (Auto) (0.0 - 0.2 x10 3/uL) 1.17 H Baso # (Auto) (0.0 - 0.2 x10 3/uL) 0.10 Abs Immat Gran (auto) (0.00 - 0.03 x10 3/uL) 0. 14 H Add Manual Diff NO Immature Gran % (0.0 - 2.0 %) 1.0 Nucleated RBC % (0 - 0 %) 0.0 Nucleated RBCs # (Man) (0.0 - 0.1 x10 3/uL) 0.0 0 Treatment Prophylaxis Treatment Prophylaxis Drain(s)/tube(s): Drain(s)/tube(s): chest Diagnosis, Assessment Plan Consultants: cardiology, cardiovascular surgery, nephrology Free Text DxA P Notes Free text DxA P notes: NSTEMI, CAD (coronary artery disease), S/P CABG X 5 ON 07/08- STABLE, CARD/CTS SEEN, TX TO SNF ON THURSDAY, EF 30-35% patient presented with NSTEMI and found to hve severe CAD. Cardiac cath shows: Left Main - Distal 70% LAD - Proximal 80% with another 60% and 70% les sions Cir - Proximal 80%,mid 80-90%, Distal 70% and O M 60% RCA - large dominant with proximal 40%, Mid 60% . Echo: ef 30-34%, mod hypokinesis of entire myoc ardium, grade 1 diastolic dysfunction Patient on ASA, plavix, BB and Statin on amiodarone, Beta-tomas as tolerated for lo w BP, Acute systolic heart failure - STABLE, NO CHARLY/BB DUE TO LOW BP, ON MIDODRINE PRN , EF 30-35% Echocardiac with estimated LVEF of 30 to 34% wi grade 1 diastolic dysfunction -s/p Lasix 20 mg twice daily 07/05 -on metoprolol 12.5 mg bid on hold now, BP low -no ACEI/ spironolactione for CLAUDETTE -Start GDMT prior to discharge -Await LifeVest 07/22 - LIFEVEST at bedside. CLAUDETTE (acute kidney injury) DUE TO POST-OBS NEPHRO REMY - ON HD MWF, RENAL/UROL SEEN, NEEDS SNF WITH DIALYSIS ACCESS, CONT WATERS , FLOMAX, CAP SEWER FROM 7.0 TO 4.3 No prior Hx of renal disease. hx of BPH and casimiro ated with Fosamax w/o improvement nd continue to h ave difficulty urinating. On admission was found to be on acute renal filaure and had received HD tw ice prior to arrival here ( thursday and thursday). 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 BPH (benign prostatic hyperplasia) - ABOVE, O N WATERS Started on Flomax at the previous hospital, thais l continue with it. Waters catheter in place, continue Waters cathete r as per nephrology 07/05 Goiter Hx of Goiter and surgical resection. TSH 3.33, within normal limits. Patient is not on Thyroid medication. RXT LEUKOCYTOSIS - STABLE, NO INFECTION DEBILITY - OT/PT SEEN, SNF TX SOON UTI continue Rocephin for empiric treatment pend ing results of urine culture No growth for 48 hours DVT prophylaxis: Heparin 5000 units every 8 hour s Diet: Cardiac diet CODE STATUS: Full code Disposition: Status post CABG x5 on 07/09, hemodia lysis as per nephrology. Worked with PT in his room, on 2 L oxygen via na cj cannula. PT/OT on board. Await LifeVest and SNF placement 07/22- awaiting SNF. lifevest arranged. Quality: Gen Med Crit Care VTE Prophylaxis VTE prophylaxis initiated: yes Advanced Care Plan 65 or Older Discussed with: patient Discussion included: living will (none), power of employment law attorney (none), code status ( full code) Electronically Signed by Jesus Larson MD on 07/09 09/28 at 1107 RPT #:[id number] END OF REPORT 2022-07-21 16:30:00-00:00 [facility] Hospitalist Progress Note REPORT#:[id number] REPORT STATUS: Signed DATE:07/21/22 TIME: 1630 PATIENT: SHERRI ARCE UNIT #: [id number] ROOM/BED: [place] [address] : 42 AGE: 81 SEX: M ATTEND: Maryam Crawford DO ADM AUTHOR: Los Crawford DO * ALL edits or amendments must be made on the [employer]/computer document * Subjective Chief complaint: Patient seen and examined during dialysis this m orning No new complaints HPI: 81 y/o man with PMHx of HTN, Dyslipidemia [facility] with chest pain and found to have a NSTEMI and also acute renal failure. Underwent cardiac c ath yesterday and found to have severe CAD including left main disease. Transfer here f or CABG evaluation. He also underwent HD Thursday and Thursday of this week. HD catheter was place at [facility]. Currently not having any chest pain. Had chest pain with SOB when he presentted to the previous hospital. Objective General VS/I O: Vital Signs: Date Time Temp Pulse Resp B/P B/P Pulse O2 O2 F low FiO2 Mean Ox Delivery Rate 07/21 1549 98.8 85 14 116/61 79.7 94 07/21 1311 97.8 89 24 131/73 95 Room air 07/21 0914 97.9 78 17 94/53 95 Room air 07/21 0904 98 Room air 07/21 0846 98.4 94 19 96/56 0.0 95 07/21 0600 87 30 105/55 74 07/21 0500 94 25 123/63 86 07/21 0400 93 30 118/57 81 07/21 0326 99.1 93 14 115/57 76.5 90 07/21 0300 94 24 117/56 79 07/21 0255 98 Room air 07/21 0200 91 28 120/58 83 07/21 0100 91 31 128/61 87 07/21 0001 90 31 141/63 91 07/20 2354 96 Room air 07/20 2329 98.2 91 14 131/65 86.7 93 07/20 2055 97 Room air 21 07/20 1924 98.1 91 16 133/66 88.5 94 Room air 07/20 1655 98.1 86 16 130/65 86.8 94 Room air 24 hour I O ending at 0700: 07/21 0700 07/20 1900 Intake Total 780 1080 Output Total 1375 1000 Balance -595 80 Intake, Oral 780 1080 Number 2 1 Bowel Movements Output, Urine 1375 1000 Patient 86.8 kg Weight Weight Standing scale Measurement Method PATIENT WEIGHT: Weight (lb): 191 Weight (oz): 5.78 Weight (kg): 86.800 Physical Exam General appearance: alert, awake, oriented Head/Eyes: atraumatic, EOMI, normal conjunctiva/ sclera, normocephalic, PERRLA ENT: moist mucosal membranes Neck: no JVD Cardiovascular: normal heart sounds, regular rat e rhythm Respiratory: aerating well, clear to auscultatio n, symmetric expansion, no distress Abdomen: non-tender, normal bowel sounds , soft, no distention, no guarding, no rebound Genitourinary: urinary catheter Extremities: no edema Musculoskeletal: normal inspection 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: normal speech, no motor deficits, no sensory deficits Skin: intact, normal color, no rash Psychiatry: normal affect Treatment Prophylaxis Treatment Prophylaxis Drain(s)/tube(s): Drain(s)/tube(s): chest Diagnosis, Assessment Plan Consultants: cardiology, cardiovascular surgery, nephrology Free Text DxA P Notes Free text DxA P notes: NSTEMI, CAD (coronary artery disease), S/P CABG X 5 ON 07/08- STABLE, CARD/CTS SEEN, TX TO SNF ON THURSDAY, EF 30-35% patient presented with NSTEMI and found to hve severe CAD. Cardiac cath shows: Left Main - Distal 70% LAD - Proximal 80% with another 60% and 70% les sions Cir - Proximal 80%,mid 80-90%, Distal 70% and O M 60% RCA - large dominant with proximal 40%, Mid 60% . Echo: ef 30-34%, mod hypokinesis of entire myoc ardium, grade 1 diastolic dysfunction Patient on ASA, plavix, BB and Statin on amiodarone, Beta-tomas as tolerated for lo w BP, Acute systolic heart failure - STABLE, NO CHARLY/BB DUE TO LOW BP, ON MIDODRINE PRN , EF 30-35% Echocardiac with estimated LVEF of 30 to 34% wi grade 1 diastolic dysfunction -s/p Lasix 20 mg twice daily 07/05 -on metoprolol 12.5 mg bid on hold now, BP low -no ACEI/ spironolactione for CLAUDETTE -Start GDMT prior to discharge -Await LifeVest CLAUDETTE (acute kidney injury) DUE TO POST-OBS NEPHRO REMY - ON HD MWF, RENAL/UROL SEEN, NEEDS SNF WITH DIALYSIS ACCESS, CONT WATERS , FLOMAX, CAP SEWER FROM 7.0 TO 4.3 No prior Hx of renal disease. hx of BPH and casimiro ated with Fosamax w/o improvement nd continue to h ave difficulty urinating. On admission was found to be on acute renal filaure and had received HD tw ice prior to arrival here ( thursday and thursday). 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 BPH (benign prostatic hyperplasia) - ABOVE, O N WATERS Started on Flomax at the previous hospital, thais l continue with it. Waters catheter in place, continue Waters cathete r as per nephrology 07/05 Goiter Hx of Goiter and surgical resection. TSH 3.33, within normal limits. Patient is not on Thyroid medication. RXT LEUKOCYTOSIS - STABLE, NO INFECTION DEBILITY - OT/PT SEEN, SNF TX SOON UTI continue Rocephin for empiric treatment pend ing results of urine culture No growth for 48 hours DVT prophylaxis: Heparin 5000 units every 8 hour s Diet: Cardiac diet CODE STATUS: Full code Disposition: Status post CABG x5 on 07/09, hemodia lysis as per nephrology. Worked with PT in his room, on 2 L oxygen via na cj cannula. PT/OT on board. Await LifeVest and SNF placement Quality: Gen Med Crit Care VTE Prophylaxis VTE prophylaxis initiated: yes Advanced Care Plan 65 or Older Discussed with: patient Discussion included: living will (none), power of employment law attorney (none), code status ( full code) at 1631 RPT #:[id number] END OF REPORT 2022-07-21 13:58:00-00:00 [facility] Nephrology Progress Note REPORT#:[id number] REPORT STATUS: Signed DATE:07/21/22 TIME: 1358 PATIENT: SHERRI ARCE UNIT #: [id number] [place] [facility] [place] [place] AGE: 81 SEX: M ATTEND: Maryam Crawford DO ADM AUTHOR: Evelina Plaza MD * ALL edits or amendments must be made on the [email or web address]/computer document * Subjective Chief complaint: Feeling okay and has no complaints at this time. Objective General VS/I O: Vital Signs: Date Time Temp Pulse Resp B/P B/P Pulse O2 O2 F low FiO2 Mean Ox Delivery Rate 07/21 1311 97.8 89 24 131/73 95 Room air 07/21 0914 97.9 78 17 94/53 95 Room air 07/21 0904 98 Room air 07/21 0846 98.4 94 19 96/56 0.0 95 07/21 0600 87 30 105/55 74 07/21 0500 94 25 123/63 86 07/21 0400 93 30 118/57 81 07/21 0326 99.1 93 14 115/57 76.5 90 07/21 0300 94 24 117/56 79 07/21 0255 98 Room air 07/21 0200 91 28 120/58 83 07/21 0100 91 31 128/61 87 07/21 0001 90 31 141/63 91 07/20 2354 96 Room air 07/20 2329 98.2 91 14 131/65 86.7 93 07/20 2055 97 Room air 07/20 1924 98.1 91 16 133/66 88.5 94 Room air 07/20 1655 98.1 86 16 130/65 86.8 94 Room air 24 hour I O ending at 0700: 07/21 0700 07/20 1900 Intake Total 780 1080 Output Total 1375 1000 Balance -595 80 Intake, Oral 780 1080 Number 2 1 Bowel Movements Output, Urine 1375 1000 Patient 86.8 kg Weight Weight Standing scale Measurement Method PATIENT WEIGHT: Weight (lb): 191 Weight (oz): 5.78 Weight (kg): 86.800 Medications Active Meds + DC'd Last 24 Hrs Midodrine (PROAMATINE) 5 MG 0900,1300,1700 PRN P O Sodium Chloride (SODIUM CHLORIDE) 10 ML ASDIR IV Amiodarone HCl (CORDARONE) 200 MG BID PO Ipratropium Kersey (ATROVENT) 500 MCG RTQ2H PRN PRN INH Lactulose (LACTULOSE) 20 GM DAILY PRN PRN PO Cyanocobalamin (Vitamin B-12 500 mcg tab) 500 MC G DAILY PO Ferrous Sulfate (FERROUS SULFATE) 325 MG DAILY P O Bisacodyl (DULCOLAX) 10 MG ONCE PRN RECTAL Atorvastatin Calcium (LIPITOR) 40 MG 2100 PO Clopidogrel Bisulfate (Plavix) 75 MG DAILY PO Polyethylene Glycol (MIRALAX) 17 GM DAILY PO Pantoprazole (PROTONIX) 40 MG DAILY@0600 PO Aspirin (ASPIRIN) 81 MG DAILY PO Docusate Sodium (COLACE) 100 MG BID PO Sennosides (Senna Lax 8.6 MG TABLET) 17.2 MG BED TIME PO Ipratropium Kersey (ATROVENT) 500 MCG RTQ4H INH Acetaminophen (TYLENOL) 650 MG Q4H PRN PRN PO Acetaminophen (TYLENOL) 650 MG Q4H PRN PRN RECTA L Dextrose/Water (DEXTROSE 10% IN WATER) 125 ML DIR PRN IV (CKD) Dextrose/Water (DEXTROSE 10% IN WATER) 250 ML DIR PRN IV (CKD) Glucagon (GLUCAGON) 1 MG ASDIR PRN IM Magnesium Sulfate (MAGNESIUM SULFATE 4GM/SWFI 10 0ML) 100 ML ASDIR PRN IV Magnesium Sulfate (MAGNESIUM SULFATE 2GM/SWFI 50 ML) 50 ML ASDIR PRN IV Magnesium Sulfate/Dextrose (MAGNESIUM SULFATE 1G M/D5W 100ML) 100 ML ASDIR PRN IV Ondansetron HCl (ZOFRAN) 4 MG Q6H PRN PRN IV Albumin Human (ALBUMINAR-25%) 12.5 GM ASDIR PRN IV Heparin Sodium (Porcine) (HEPARIN SODIUM) 3,000 UNIT ASDIR PRN DIALYSIS Lidocaine HCl (LIDOCAINE HCL/PF) 0.5 ML ASDIR NV N I-DERMAL (CKD) Mannitol (Mannitol 20%) 12.5 GM ASDIR PRN IV Sodium Chloride (SODIUM CHLORIDE 0.9%) 2,000 ML ASDIR PRN IV Tamsulosin HCl (Flomax 0.4 mg) 0.4 MG BEDTIME P O Physical Exam General appearance: alert, awake Head/eyes: atraumatic, normocephalic ENT: moist mucous membranes, normal nose Neck: non-tender, no JVD Cardiovascular: regular rate and rhythm Respiratory: clear to auscultation Abdomen: non-tender, soft Genitourinary: no bladder distention Extremities: no edema, no swelling 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ALTH: alert, oriented X 3, normal speech Skin: dry, intact Results Findings/Data: Laboratory Tests 07/21 044 Chemistry Sodium (134 - 147 mEq/L) 141 Potassium (3.4 - 5.0 mEq/L) 3.8 Chloride (100 - 108 mEq/L) 108 Carbon Dioxide (21 - 33 mEq/l) 24 Anion Gap (0 - 20) 13 BUN (7 - 18 mg/dL) 58 H Creatinine (0.6 - 1.3 mg/dL) 4.5 H Glomerular Filtr Rate (70 - 80) 12.6 L Glucose (70 - 110 mg/dL) 93 Calcium (8.0 - 10.5 mg/dL) 8.2 Magnesium (1.80 - 2.40 mg/dL) 1.93 Laboratory Tests 07/21 444 Hematology WBC (4.5 - 11.0 x10 3/uL) 16.8 H RBC (4.00 - 5.60 x10 6/uL) 2.62 L Hgb (12.5 - 16.9 g/dL) 7.7 L Hct (37.5 - 50.7 %) 25.0 L MCV (81.0 - 99.0 fL) 95.4 MCH (27.0 - 33.0 pg) 29.4 MCHC (33.0 - 37.0 g/dL) 30.8 L RDW (11.5 - 14.5 %) 16.0 H Plt Count (150 - 400 x10 3/uL) 363 MPV (7.0 - 9.0 fL) 10.2 H Neut % (Auto) (56.0 - 77.0 %) 79.9 H Lymph % (Auto) (14.0 - 32.0 %) 5.3 L [place] % (Auto) (4.8 - 9.0 %) 6.4 Eos % (Auto) (0.3 - 3.7 %) 6.9 H Baso % (Auto) (0.0 - 2.0 %) 0.5 Neut # (Auto) (2.0 - 7.6 x10 3/uL) 13.41 H Lymph # (Auto) (1.0 - 3.8 x10 3/uL) 0.88 L [place] # (Auto) (0.1 - 0.8 x10 3/uL) 1.07 H Eos # (Auto) (0.0 - 0.2 x10 3/uL) 1.16 H Baso # (Auto) (0.0 - 0.2 x10 3/uL) 0.08 Abs Immat Gran (auto) (0.00 - 0.03 x10 3/uL) 0. 16 H Add Manual Diff NO Immature Gran % (0.0 - 2.0 %) 1.0 Nucleated RBC % (0 - 0 %) 0.0 Nucleated RBCs # (Man) (0.0 - 0.1 x10 3/uL) 0.0 0 Treatment Prophylaxis Treatment Prophylaxis Drain(s)/tube(s): Drain(s)/tube(s): chest Diagnosis, Assessment Plan Free Text A P: Assessment: 1-CLAUDETTE likely from urinary retention. oliguric AK I now post op, and shock 2- non-STEMI: multivessel disease w main left. 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 Waters catheter is in place. 4-severe bilateral hydronephrosis 5- shock : Cardiogenic resolved. 6-hyperlipidemia 7- AGMA resolved. Plan: - unknown Scr baseline. -will be getting HD MWF here. HD today with no U F - Ultrasound showed severe bilateral hyd ronephrosis and medical renal disease. Urology seen and recommended Waters catheter when discharged home with Flomax, and outpatient follow-up. - He underwent LHC on 07/03. - Started on HD on 07/04. - s/p CABG X5 on 07/08 -Adequate urine output volume but no clearance. -TDC placed 07/15. -Obtain 24 creatinine and urea clearance. stble from nephrology for discharge to [facility] Consultants: cardiology, cardiovascular surgery, nephrology Electronically Signed by Evelina Plaza MD on at 1401 RPT #:[id number] END OF REPORT 2022-07-21 11:47:00-00:00 HCACL [facility] ([facility] Cardiothoracic Surgery Prog REPORT#:[id number] REPORT STATUS: Signed DATE:07/21/22 TIME: 1147 PATIENT: SHERRI ARCE UNIT #: [id number] ROOM/BED: [place] [address] : 42 AGE: 81 SEX: M ATTEND: Srinath Kaur MD ADM AUTHOR: Rosalind Toribio * ALL edits or amendments must be made on the [email or web address] document * General Post-op: day 10 Status post: 07/08/22 CABG x 5 (MISTRY-LAD, SVG-Ladonna, SVG-OM1< SVG-OM3, S VG-PDA) ALAA EVH (RGSV) Subjective Chief complaint: s/p CABG no complaints Review of Systems Constitutional: Denies: chills, fever, malaise. Allergy/Immun: Denies: allergic reaction. Respiratory: Denies: SOB. Cardiovascular: Denies: chest pain, palpitations. GI: Denies: abdominal pain, nausea, vomiting. : Denies: dysuria, hematuria. Heme: Denies: bleeding. Neuro: Denies: dizziness, headache, vision change. All systems rev neg: except as marked Objective General VS/I O Last Documented: Result Date Time Pulse Ox 95 07/21 913 B/P 94/53 07/21 913 O2 Delivery Room air 07/21 913 Temp 97.9 07/21 913 Pulse 78 07/21 913 Resp 17 07/21 913 B/P Mean 0.0 07/21 845 FiO2 21 07/21 0255 O2 Flow Rate 3 07/14 1151 24 hour I O ending at 0700: 07/21 0700 07/20 1900 Intake Total 780 1080 Output Total 1375 1000 Balance -595 80 Intake, Oral 780 1080 Number 2 1 Bowel Movements Output, Urine 1375 1000 Patient 191 lb Weight Weight Standing scale Measurement Method PATIENT WEIGHT: Weight (lb): 191 Weight (oz): 5.78 Weight (kg): 86.800 Physical Exam General appearance: alert, oriented, mental stat us normal, no respiratory distress Wound/incision: Location: sternal Site condition: edges approximated, incision in tact, no drainage, no ecchymosis, no erythema HEENT: anicteric, mucosal membranes moist Neck: supple/no meningismus Cardiovascular: normal heart sounds, regular rat e rhythm Respiratory: aerating well, symmetric expansion, no distress Abdomen: soft, non-tender, no distention Genitourinary: waters Extremities: moves all 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: alert, oriented X 3, normal speech, n o motor deficits Psychiatry: normal affect, normal mood Current Medications Medications: Active Meds + DC'd Last 24 Hrs Midodrine (PROAMATINE) 5 MG 0900,1300,1700 PRN P O Sodium Chloride (SODIUM CHLORIDE) 10 ML ASDIR IV Amiodarone HCl (CORDARONE) 200 MG BID PO Ipratropium Kersey (ATROVENT) 500 MCG RTQ2H PRN PRN INH Lactulose (LACTULOSE) 20 GM DAILY PRN PRN PO Cyanocobalamin (Vitamin B-12 500 mcg tab) 500 MC G DAILY PO Ferrous Sulfate (FERROUS SULFATE) 325 MG DAILY P O Bisacodyl (DULCOLAX) 10 MG ONCE PRN RECTAL Atorvastatin Calcium (LIPITOR) 40 MG 2100 PO Clopidogrel Bisulfate (Plavix) 75 MG DAILY PO Polyethylene Glycol (MIRALAX) 17 GM DAILY PO Pantoprazole (PROTONIX) 40 MG DAILY@0600 PO Aspirin (ASPIRIN) 81 MG DAILY PO Docusate Sodium (COLACE) 100 MG BID PO Sennosides (Senna Lax 8.6 MG TABLET) 17.2 MG BED TIME PO Ipratropium Kersey (ATROVENT) 500 MCG RTQ4H INH Acetaminophen (TYLENOL) 650 MG Q4H PRN PRN PO Acetaminophen (TYLENOL) 650 MG Q4H PRN PRN RECTA L Dextrose/Water (DEXTROSE 10% IN WATER) 125 ML DIR PRN IV (CKD) Dextrose/Water (DEXTROSE 10% IN WATER) 250 ML DIR PRN IV (CKD) Glucagon (GLUCAGON) 1 MG ASDIR PRN IM Magnesium Sulfate (MAGNESIUM SULFATE 4GM/SWFI 10 0ML) 100 ML ASDIR PRN IV Magnesium Sulfate (MAGNESIUM SULFATE 2GM/SWFI 50 ML) 50 ML ASDIR PRN IV Magnesium Sulfate/Dextrose (MAGNESIUM SULFATE 1G M/D5W 100ML) 100 ML ASDIR PRN IV Ondansetron HCl (ZOFRAN) 4 MG Q6H PRN PRN IV Albumin Human (ALBUMINAR-25%) 12.5 GM ASDIR PRN IV Heparin Sodium (Porcine) (HEPARIN SODIUM) 3,000 UNIT ASDIR PRN DIALYSIS Lidocaine HCl (LIDOCAINE HCL/PF) 0.5 ML ASDIR NV N I-DERMAL (CKD) Mannitol (Mannitol 20%) 12.5 GM ASDIR PRN IV Sodium Chloride (SODIUM CHLORIDE 0.9%) 2,000 ML ASDIR PRN IV Tamsulosin HCl (Flomax 0.4 mg) 0.4 MG BEDTIME PO Results Findings/Data: Laboratory Tests 07/21 0445 Chemistry Sodium (134 - 147 mEq/L) 141 Potassium (3.4 - 5.0 mEq/L) 3.8 Chloride (100 - 108 mEq/L) 108 Carbon Dioxide (21 - 33 mEq/l) 24 Anion Gap (0 - 20) 13 BUN (7 - 18 mg/dL) 58 H Creatinine (0.6 - 1.3 mg/dL) 4.5 H Glomerular Filtr Rate (70 - 80) 12.6 L Glucose (70 - 110 mg/dL) 93 Calcium (8.0 - 10.5 mg/dL) 8.2 Magnesium (1.80 - 2.40 mg/dL) 1.93 Laboratory Tests 07/21 444 Hematology WBC (4.5 - 11.0 x10 3/uL) 16.8 H RBC (4.00 - 5.60 x10 6/uL) 2.62 L Hgb (12.5 - 16.9 g/dL) 7.7 L Hct (37.5 - 50.7 %) 25.0 L MCV (81.0 - 99.0 fL) 95.4 MCH (27.0 - 33.0 pg) 29.4 MCHC (33.0 - 37.0 g/dL) 30.8 L RDW (11.5 - 14.5 %) 16.0 H Plt Count (150 - 400 x10 3/uL) 363 MPV (7.0 - 9.0 fL) 10.2 H Neut % (Auto) (56.0 - 77.0 %) 79.9 H Lymph % (Auto) (14.0 - 32.0 %) 5.3 L [place] % (Auto) (4.8 - 9.0 %) 6.4 Eos % (Auto) (0.3 - 3.7 %) 6.9 H Baso % (Auto) (0.0 - 2.0 %) 0.5 Neut # (Auto) (2.0 - 7.6 x10 3/uL) 13.41 H Lymph # (Auto) (1.0 - 3.8 x10 3/uL) 0.88 L [place] # (Auto) (0.1 - 0.8 x10 3/uL) 1.07 H Eos # (Auto) (0.0 - 0.2 x10 3/uL) 1.16 H Baso # (Auto) (0.0 - 0.2 x10 3/uL) 0.08 Abs Immat Gran (auto) (0.00 - 0.03 x10 3/uL) 0. 16 H Add Manual Diff NO Immature Gran % (0.0 - 2.0 %) 1.0 Nucleated RBC % (0 - 0 %) 0.0 Nucleated RBCs # (Man) (0.0 - 0.1 x10 3/uL) 0.0 0 Treatment Prophylaxis Treatment Prophylaxis Drain(s)/tube(s): Drain(s)/tube(s): chest Diagnosis, Assessment Plan Hospital course to date: This is a 81-year-old gentleman who presented to an outside hospital with complaints of chest pains while walking at his home on Thursday. He denies any previous history of coronary artery disease or o ther NE. He was seen and evaluated at [facility]. He was found to have a urinary tract infection with urinary retention and acute kidne y. He was started on dialysis via a left femoral temporary catheter. He underw ent dialysis on Thursday, Thursday. Renal has been consulted During his work-up at outside hospital he underw ent Left heart catheterization showing sever e Left Main 70%. LAD: Proximal diffuse 80% stenosis and then diffuse 60% in the midsegment and on the distal segment, there is focal 70% stenosis. Diagonal branches w ith luminal irregularities. Left circumflex, codominant circulation with pro ximal 80%, mid 80 to 90% and then in the OM, there is proximal 60%, distal le ft circumflex has a 70% stenosis. RCA large and dominant with proximal 4 0% stenosis, mid 60% stenosis and then diffuse 50% stenosi s all the way distally and the PLV and the PDA with luminal irregularities. CV surgery consulted for evaluation for coronary bypass graft. CAROTIDS - No carotid stenosis CT chest complete IMPRESSION: Small bilateral pleural effusions with bibasila r atelectasis. Echo: 1. Left ventricle: The cavity size is at the upp er limits of normal. Wall thickness is mildly increased. Systolic fu nction is severely reduced. The estimated ejection fraction is 30- 34%. Moderate hypokinesis of the entire myocardium. Doppler parameters are consistent with abnormal left ventricular relax ation (grade 1 diastolic dysfunction). 2. Pericardium, extracardiac: A small pericardia l effusion is identified along the left ventricular free wall, along the right ventricular free wall, and along the right atrial free wall . Assessment/Plan 1) CAD Mutlivessel Will obtain echo,carotids. 2) CLAUDETTE Started dialysis on Creatine 7.3 Renal consulted. 3) BPH- Urinary retention. Waters in place Workup for CABG underway. Will get functional assessment with PT. PFT pending Carotid dopplers- No disease Echo Pending Dialyiss per Renal. Baseline Cr unknown. 07/04 07/04 Doing well today, alert, up in the chair. Denies chest pain Echocardiogram showed LVEF 30 to 34%, mild MR, t rivial TR CT chest images reviewed Encourage I-S and mobilization Creatinine 5.5 from 7.3, good urine output. Pao l US showed bilateral severe hydronephrosis. Plan for HD today and tomorrow Will tentatively schedule patient for surgery on Thursday. Patient seen and plan reviewed with Dr Schwarz 07/05 Remains in a stable condition, denies chest pain BUN 53, creatinine 5.4. Plan for hemodia lysis today and tomorrow for clearance He is also on Lasix 20 mg IV twice daily, urine output 1.1 L overnight We will calculate risk of surgery with STS score Encourage I-S and mobilization Will tentatively schedule patient for surgery on Thursday. Pt seen and plan reviewed with Dr Schwarz 07/06 BUN 36, creatinine 4.4. Plan for hemodialysis to day Awaiting CABG tomorrow Surgery, risks involved, STS score, benefits, co mplications and alternatives were explained to the patient. He acknow ledged understanding and is willing to proceed N.p.o. after midnight Patient seen and plan reviewed with Dr. Schwarz 07/09/22 POD 1 CABG x 5 (MISTRY-LAD, SVG-Ladonna, SVG-OM1< SVG-OM3, S VG-PDA), ALAA, EVH (RGSV) Patient hemodynamically unstable, on epi at 4, a nd vaso .04, decreased uop overnight- 150cc Started patient on CRRT 2k/3.5 Wean epi as tolerated, Cardiac incex 2.8-3 labs and chest x-ray reviewed, electroly marcie stable, hgb 6.5- transfuse 2 units PRBC On 4l nasal cannula- encourage incentive spirome ter and deep breathing Keep both chest tubes and monitor outputs Glycemic control on insulin drip Cardiac diet Bowel regimen protocol Pain management SCDs for DVT and PPI for GI prophylaxis PT/OT Monitor patient closely in CVICU Plan of care discussed with Dr. Schwarz 07/10/22 POD 2 Patient alert, awake, and oriented, no distres n oted labs and CXR reviewed stable Breathing comfortably on 3l nasal cannula- wean as tolerated to melissa O2 sats > 92 % Encourage I-S use and deep breathing On CRRT- able to remove 2.9L overnight- nephrolo gy following Cardiac index 3.1- wean off epi drip Keep chest tubes for now and monitor outputs Transition to sliding scale insulin- cardiac t Try to get patient out of bed to chair today- am bulate with PT/OT SCDs for DVT prophylaxis Keep patient in CVICU for close monitoring 07/11/22 POD 3 Patient in stable condition, overnight e vents noted- decreased urine output 35 ml last night-started on dopamine gtt for renal perfusion Cardiac index 3.5- epi currently at 2- will disc ontinue today, vasopressin at 0.02, added low dose midodrine 2.5 mg TID, repea t echocardiogram. Renal Following- trial Lasix Patient has Left femoral tem p dialysis cath, Will need tunneled dialysis IJ cath placed if need dialysis. On 5l nasal cannula- wean off as tolerat ed, encourage incentive spirometer and deep breathing Keep left pleural chest tube and monitor output- > 200 cc Tolerating diet, bowel regimen protocol PT/OT- patient out of bed to chair today- encour age ambulation DVT prophylaxis with SCDs Monitor patient closely in CVICU Plan discussed with multidisciplinary team Plan discussed with Dr Schwarz/ Dr Rodríguez 07/12/22 POD 5, Patient resting comfortable. Patient with hx of urinary r etention- After standing today- voided 1.4 L. Needs Urology consult for retention K 5.4- HD in progress. Dr Plaza following. CT output 20- DC today. Pacers remain in place. Patient has Left femoral tem p dialysis cath, Re-evaluate on Thursday if ocean transportation intermediary dialysis needed. Card: Remains in sinus rhythm. Respir: on 7 L NC O2 95% Dispo: Rehab consulted Patient seen and exmained by Dr Rodríguez. Plan discussed with Team 07/13/22 POD 5 Patient with no new complaints. Recieved HD yest erday. Requiring less oxygen, now on 3l nasal cannula- continue to wean off CXR reviewed left apical pne umothorax 4cm/30%, Chest tube drained 140 overnight, placed back on suction to clear pneumo, CT drianed 200cc th is AM. on suction. Labs reviewed- stable, decreased WBC, hgb stable , CR 3.9 Eating welll, +BM UO- 550CC, BP improved on midodrine. Continue PT/OT, ambulation and incentive spirome ter use Rehab folowing Monitor in ICU today Disucssed with Dr Schwarz- Adeola C femoral line and Central line today. DC art line. Will re-eval need for dialysis cath Thursday. Cons ider tunnelled cath if need. Patient seen and examined by Dr Rodríguez. Plan discussed with Care team. 07/14 POD 6 Patient in stable condition, no distress noted Remains on room air, O2 sats > 92%, encourage I- S use and deep breathing CXR shows moderate left apical pneumothorax unch anged CT remained on suction, no airleak no Consult IR for pigtail chest tube placement this morning Cardiac/renal diet Labs reviewed- K 5.1- repeat labs K 4.8 Nephrology following Continue therapy with PT/OT Follow up with urology for waters catheter- Dr Hunter carrera consulted. Monitor in CVICU Plan of care discussed with Dr Schwarz and multi disciplinary team 07/15/22 POD 7 Patient alert, awake, and oriented, no distress, no complaints at this time Breathing comfortable on room air CXR shows resolved pneumothorax LP and pigtail chest tube- no air leak noted, mi nimal output from LP 40 overnight Labs reviewed, K 5.2- corrected, follow up with nephrology to discuss need for dialysis Trend labs this afternoon Bowel regimen, +gas Waters catheter discontinued per urology- voiding trial this AM Ambulation and incentive spirometer use encourag ed DVT prophylaxis with SCDs Keep in ICU DISP: SNF- Case management Discussed plan of care with multidisciplinary david portillo and Dr. Schwarz 07/16/2022 POD 8 Patient doing well, alert, awake, and oriented O2 sats 93% on room air, encourage I-S CXR stable- no pneumo noted Left pigtail chest tube - no air leak, clamped t his morning, repeat CXR Placement of tunneled dialysis catheter (BioFlo DuraMax 28 cm) yesterday HD treatment done yesterday evening, plan for HD treatment today per nephrology Patient failed voiding trial, waters catheter rep laced- follow up with urology Eating well Continue PT/OT- ambulation Transfer to CV 1 intermediate care unit Discharge planning for SNF- CM following and to set up dialysis chair Patient seen with Dr. Allie louis and discussed plan of care with multidisciplinary team. 07/17/22 Patient in stable condition, no complaints Labs and CXR reviewed- stable Left pigtail chest tube discontinued yesterday- no pneumo noted Remains on room air, no distress- I-S encouraged Cardiac diet, +BM Keep waters per urology f/u outpt, continue floma x HD per nephrology- CM to setup outpt dialysis ch air Awaiting bed availability on CV 1 Discharge planning- SNF Plan of care discussed with multidisciplinary david portillo and Dr. Schwarz. 07/18 Patient in stable condition, no complaints Remains on room air, no distress- I-S encouraged Epicardial pacing wires discontinued. Limited ec ho to rule out pericardial effusion Keep waters per urology f/u outpt, continue floma x HD per nephrology- CM to setup outpt dialysis ch air Discharge planning- SNF Plan of care discussed with multidisciplinary david portillo and Dr. Schwarz. 07/19 No new events Echocardiogram done, report pending HD per nephrology- CM to setup outpt dialysis ch air [facility] Patient seen and plan reviewed with Dr. Schwarz 07/20 Remains in a stable condition. Echocardiogram showed LVEF 30 to 34%, trivial pe ricardial effusion HD schedule per nephrology Awaiting insurance approval for SNF 07/21 No complaints today HD schedule per nephrology Awaiting insurance approval for SNF Encourage I-S and mobilization at 1150 at 1004 RPT #:[id number] END OF REPORT 2022-07-21 10:29:00-00:00 HCACL [facility] Progress Note REPORT#:[id number] REPORT STATUS: Signed DATE:07/21/22 TIME: 1029 PATIENT: SHERRI ARCE UNIT #: [id number] [place] [facility] [place] [place] AGE: 81 SEX: M ATTEND: Maryam Crawford DO ADM AUTHOR: Magdaleno Washburn * ALL edits or amendments must be made on the [email or web address] document * Subjective Chief complaint: Rehab follow-up Doing well. About to start HD Denies pain or sob Pleasant Denies NAIK/N/V/D/CP 14 systems reviewed and neg. except that above. Objective General VS: Vital Signs: Date Time Temp Pulse Resp B/P B/P Pulse O2 O2 F low FiO2 Mean Ox Delivery Rate 07/21 0846 98.4 94 19 96/56 0.0 95 07/21 0600 87 30 105/55 74 07/21 0500 94 25 123/63 86 07/21 0400 93 30 118/57 81 07/21 0326 99.1 93 14 115/57 76.5 90 07/21 0300 94 24 117/56 79 07/21 0255 98 Room air 21 07/21 0200 91 28 120/58 83 07/21 0100 91 31 128/61 87 07/21 0001 90 31 141/63 91 07/20 2354 96 Room air 21 07/20 2329 98.2 91 14 131/65 86.7 93 07/20 2055 97 Room air 21 07/20 1924 98.1 91 16 133/66 88.5 94 Room air 07/20 1655 98.1 86 16 130/65 86.8 94 Room air 07/20 1232 95 Room air 21 07/20 1220 97.2 98 18 133/66 88.4 94 Room air 07/20 1219 94 Room air 21 PATIENT WEIGHT: Weight (lb): 191 Weight (oz): 5.78 Weight (kg): 86.800 Functional Progress Functional progress: The data set between the solid lines has been im ported from multidisciplinary team documentation. __ FUNCTIONAL ACTIVITY ADMISSION STATUS INTERIM ST ATUS Toilet hygiene Toilet transfer Eating Shower/bathing Dressing upper body Dressing lower body Transfer to/from bed to chair Wheel 50ft w/ 2 turns Wheel 150 ft Walk 50 ft w/ 2 turns Walk 150 ft Four steps __ Physical Exam General appearance: alert, awake, oriented Psych: alert, oriented x 3 HEENT: anicteric, sclera clear Neck: supple, no JVD Cardiovascular: regular rate rhythm, S1/S2 Respiratory: aerating well, clear bilaterally Abdomen: bowel sounds present, non-distended, so ft Skin: intact, no rash Musculoskeletal - general: Musculoskeletal - general: joints normal, meagan l muscle mass, normal tone 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ALTH: alert, oriented X 3, CNII-XII intact Results Findings/Data: Laboratory Tests: 07/21 07/21 0445 0445 Chemistry Sodium (134 - 147 mEq/L) 141 Potassium (3.4 - 5.0 mEq/L) 3.8 Chloride (100 - 108 mEq/L) 108 Carbon Dioxide (21 - 33 mEq/l) 24 Anion Gap (0 - 20) 13 BUN (7 - 18 mg/dL) 58 H Creatinine (0.6 - 1.3 mg/dL) 4.5 H Glomerular Filtr Rate (70 - 80) 12.6 L Glucose (70 - 110 mg/dL) 93 Calcium (8.0 - 10.5 mg/dL) 8.2 Magnesium (1.80 - 2.40 mg/dL) 1.93 Hematology WBC (4.5 - 11.0 x10 3/uL) 16.8 H RBC (4.00 - 5.60 x10 6/uL) 2.62 L Hgb (12.5 - 16.9 g/dL) 7.7 L Hct (37.5 - 50.7 %) 25.0 L MCV (81.0 - 99.0 fL) 95.4 MCH (27.0 - 33.0 pg) 29.4 MCHC (33.0 - 37.0 g/dL) 30.8 L RDW (11.5 - 14.5 %) 16.0 H Plt Count (150 - 400 x10 3/uL) 363 MPV (7.0 - 9.0 fL) 10.2 H Neut % (Auto) (56.0 - 77.0 %) 79.9 H Lymph % (Auto) (14.0 - 32.0 %) 5.3 L [place] % (Auto) (4.8 - 9.0 %) 6.4 Eos % (Auto) (0.3 - 3.7 %) 6.9 H Baso % (Auto) (0.0 - 2.0 %) 0.5 Neut # (Auto) (2.0 - 7.6 x10 3/uL) 13.41 H Lymph # (Auto) (1.0 - 3.8 x10 3/uL) 0.88 L [place] # (Auto) (0.1 - 0.8 x10 3/uL) 1.07 H Eos # (Auto) (0.0 - 0.2 x10 3/uL) 1.16 H Baso # (Auto) (0.0 - 0.2 x10 3/uL) 0.08 Abs Immat Gran (auto) (0.00 - 0.03 x10 3/uL) 0. 16 H Add Manual Diff NO Immature Gran % (0.0 - 2.0 %) 1.0 Nucleated RBC % (0 - 0 %) 0.0 Nucleated RBCs # (Man) (0.0 - 0.1 x10 3/uL) 0.0 0 Diagnosis, Assessment Plan Free Text A P: Non-STEMI Multivessel CAD S/p CABG x5 Physical deconditioning Impaired mobility and gait Postoperative anemia Dyslipidemia Hypertension CLAUDETTE Acute systolic heart failure Hemodynamic issues postop Leukocytosis trending down Pleural effusion and atelectasis Plan: Continue PT/OT Out of bed to chair Work on strength, bed mobility, transfers, gait Sternal precaution Increase endurance Fall precautions Monitor p.o. intake and nutrition Strict decubitus precautions Monitor anemia. Persistent left pneumothorax. IR guided pigtail place. CXR shows expansion of the lung Urology consulted -Pt on Flomax Nephrology managing renal issues and elevated K+ Utilize IS to reduce atelectasis Advance therapies as tolerated Pt lives alone and has 5 to 6 stairs to enter ho use SNF order has been placed. Will require insuranc e approval for SNF, dialysis clinic acceptance, approval for [facility] prior t o discharge Total time was 33 minutes > 50% with patient per forming physical examination, discussing plan of care, goals, therapies, progr ess, medications, labs, SNF. All questions answered Rehab attestation: . Electronically Signed by Magdaleno Washburn on 0 07/22/22 at 0646 RPT #:[id number] END OF REPORT 2022-07-21 09:39:00-00:00 [facility] Cardiology Progress Note REPORT#:[id number] REPORT STATUS: Signed DATE:07/21/22 TIME: 938 PATIENT: SHERRI ARCE UNIT #: [id number] [place] [facility] [place] AGE: 81 SEX: M ATTEND: Jesus Larson MD ADM AUTHOR: Sonya Stacy CNP * ALL edits or amendments must be made on the el [employer]/computer document * Subjective Patient reports: No: complaints. Objective General VS/I O: 24 hour I O ending at 0700: 07/21 0700 07/20 1900 Intake Total 780 1080 Output Total 1375 1000 Balance -595 80 Intake, Oral 780 1080 Number 2 1 Bowel Movements Output, Urine 1375 1000 Patient 86.8 kg Weight Weight Standing scale Measurement Method Vital Signs: Date Time Temp Pulse Resp B/P B/P Pulse O2 O2 F low FiO2 Mean Ox Delivery Rate 07/21 0846 36.9 94 19 96/56 0.0 95 07/21 0600 87 30 105/55 74 07/21 0500 94 25 123/63 86 07/21 0400 93 30 118/57 81 07/21 0326 37.3 93 14 115/57 76.5 90 07/21 0300 94 24 117/56 79 07/21 0255 98 Room air 21 07/21 0200 91 28 120/58 83 07/21 0100 91 31 128/61 87 07/21 0001 90 31 141/63 91 07/20 2354 96 Room air 21 07/20 2329 36.8 91 14 131/65 86.7 93 07/20 2055 97 Room air 21 07/20 1924 36.7 91 16 133/66 88.5 94 Room air 07/20 1655 36.7 86 16 130/65 86.8 94 Room air 07/20 1232 95 Room air 21 07/20 1220 36.2 98 18 133/66 88.4 94 Room air 07/20 1219 94 Room air 21 PATIENT WEIGHT: Weight (lb): 191 Weight (oz): 5.78 Weight (kg): 86.800 Medications: Active Meds + DC'd Last 24 Hrs Midodrine (PROAMATINE) 5 MG 0900,1300,1700 PRN P O Sodium Chloride (SODIUM CHLORIDE) 10 ML ASDIR IV Amiodarone HCl (CORDARONE) 200 MG BID PO Ipratropium Kersey (ATROVENT) 500 MCG RTQ2H PRN PRN INH Lactulose (LACTULOSE) 20 GM DAILY PRN PRN PO Cyanocobalamin (Vitamin B-12 500 mcg tab) 500 MC G DAILY PO Ferrous Sulfate (FERROUS SULFATE) 325 MG DAILY PO Bisacodyl (DULCOLAX) 10 MG ONCE PRN RECTAL Atorvastatin Calcium (LIPITOR) 40 MG 2100 PO Clopidogrel Bisulfate (Plavix) 75 MG DAILY PO Polyethylene Glycol (MIRALAX) 17 GM DAILY PO Pantoprazole (PROTONIX) 40 MG DAILY@0600 PO Aspirin (ASPIRIN) 81 MG DAILY PO Docusate Sodium (COLACE) 100 MG BID PO Sennosides (Senna Lax 8.6 MG TABLET) 17.2 MG BED TIME PO Ipratropium Kersey (ATROVENT) 500 MCG RTQ4H INH Acetaminophen (TYLENOL) 650 MG Q4H PRN PRN PO Acetaminophen (TYLENOL) 650 MG Q4H PRN PRN RECTA L Dextrose/Water (DEXTROSE 10% IN WATER) 125 ML DIR PRN IV (CKD) Dextrose/Water (DEXTROSE 10% IN WATER) 250 ML DIR PRN IV (CKD) Glucagon (GLUCAGON) 1 MG ASDIR PRN IM Magnesium Sulfate (MAGNESIUM SULFATE 4GM/SWFI 10 0ML) 100 ML ASDIR PRN IV Magnesium Sulfate (MAGNESIUM SULFATE 2GM/SWFI 50 ML) 50 ML ASDIR PRN IV Magnesium Sulfate/Dextrose (MAGNESIUM SULFATE 1G M/D5W 100ML) 100 ML ASDIR PRN IV Ondansetron HCl (ZOFRAN) 4 MG Q6H PRN PRN IV Albumin Human (ALBUMINAR-25%) 12.5 GM ASDIR PRN IV Heparin Sodium (Porcine) (HEPARIN SODIUM) 3,000 UNIT ASDIR PRN DIALYSIS Lidocaine HCl (LIDOCAINE HCL/PF) 0.5 ML ASDIR NV N I-DERMAL (CKD) Mannitol (Mannitol 20%) 12.5 GM ASDIR PRN IV Sodium Chloride (SODIUM CHLORIDE 0.9%) 2,000 ML ASDIR PRN IV Tamsulosin HCl (Flomax 0.4 mg) 0.4 MG BEDTIME PO Physical Exam General appearance: alert, awake Head/Eyes: atraumatic ENT: moist mucosal membranes Neck: no JVD Cardiovascular: CV assessment: regular rate and rhythm, no murm ur Respiratory: decreased breath sounds, no distres s Abdomen: soft, non-tender, normal bowel sounds, no distention, no guarding Upper extremity: UE assessment: normal temperature, no edema Lower extremity: LE assessment: normal temperature, no edema Musculoskeletal: normal inspection 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ALTH: alert, oriented X 3, normal speech Skin: dry Psychiatry: normal affect Results Findings/Data: Laboratory Tests 07/21 07/21 0445 0445 Chemistry Sodium (134 - 147 mEq/L) 141 Potassium (3.4 - 5.0 mEq/L) 3.8 Chloride (100 - 108 mEq/L) 108 Carbon Dioxide (21 - 33 mEq/l) 24 Anion Gap (0 - 20) 13 BUN (7 - 18 mg/dL) 58 H Creatinine (0.6 - 1.3 mg/dL) 4.5 H Glomerular Filtr Rate (70 - 80) 12.6 L Glucose (70 - 110 mg/dL) 93 Calcium (8.0 - 10.5 mg/dL) 8.2 Magnesium (1.80 - 2.40 mg/dL) 1.93 Laboratory Tests 07/21 0445 Hematology WBC (4.5 - 11.0 x10 3/uL) 16.8 H RBC (4.00 - 5.60 x10 6/uL) 2.62 L Hgb (12.5 - 16.9 g/dL) 7.7 L Hct (37.5 - 50.7 %) 25.0 L MCV (81.0 - 99.0 fL) 95.4 MCH (27.0 - 33.0 pg) 29.4 MCHC (33.0 - 37.0 g/dL) 30.8 L RDW (11.5 - 14.5 %) 16.0 H Plt Count (150 - 400 x10 3/uL) 363 MPV (7.0 - 9.0 fL) 10.2 H Neut % (Auto) (56.0 - 77.0 %) 79.9 H Lymph % (Auto) (14.0 - 32.0 %) 5.3 L [place] % (Auto) (4.8 - 9.0 %) 6.4 Eos % (Auto) (0.3 - 3.7 %) 6.9 H Baso % (Auto) (0.0 - 2.0 %) 0.5 Neut # (Auto) (2.0 - 7.6 x10 3/uL) 13.41 H Lymph # (Auto) (1.0 - 3.8 x10 3/uL) 0.88 L [place] # (Auto) (0.1 - 0.8 x10 3/uL) 1.07 H Eos # (Auto) (0.0 - 0.2 x10 3/uL) 1.16 H Baso # (Auto) (0.0 - 0.2 x10 3/uL) 0.08 Abs Immat Gran (auto) (0.00 - 0.03 x10 3/uL) 0 .16 H Add Manual Diff NO Immature Gran % (0.0 - 2.0 %) 1.0 Nucleated RBC % (0 - 0 %) 0.0 Nucleated RBCs # (Man) (0.0 - 0.1 x10 3/uL) 0.0 0 Laboratory Tests 07/21 0445 Chemistry Magnesium (1.80 - 2.40 mg/dL) 1.93 Results: labs reviewed, vital signs reviewed Diagnosis, Assessment Plan Free Text DxA P Notes Free Text DxA P Notes: Mr. Arce is a pleasant 81 y/o M w/ PMHx: HTN, HLD presented to [facility] on 06/28/22 for chest pa in and sob. He was diagnosed NSTEMI. LHC showed multivessel CAD. Transferred to [facility] for CABG. 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 urology consulted for bladded outlet obstructio n and hydronephrosis, started on Flomax HD per nephro - HTN. bp stable, midodrine as needed - HLD. On statins. - Anemia. monitor Doing well VS stable SNF pending at 1706 Electronically Signed by Liset Ennis MD on at 4053 RPT #:[id number] END OF REPORT 2022-07-20 17:14:00-00:00 [facility] Nephrology Progress Note REPORT#:[id number] REPORT STATUS: Signed DATE:07/20/22 TIME: 1714 PATIENT: SHERRI ARCE UNIT #: [id number] ROOM/BED: [place] [address] : 42 AGE: 81 SEX: M ATTEND: Srinath Kaur MD ADM AUTHOR: Jackie Wan MD * ALL edits or amendments must be made on the [email or web address] document * Subjective Chief complaint: Feeling okay and has no complaints at this time. Review of Systems Constitutional: Reports: generalized weakness. All systems rev neg: except as marked Objective General VS/I O: Vital Signs: Date Time Temp Pulse Resp B/P B/P Pulse O2 O2 F low FiO2 Mean Ox Delivery Rate 07/20 1655 98.1 86 16 130/65 86.8 94 Room air 07/20 1232 95 Room air 21 07/20 1220 97.2 98 18 133/66 88.4 94 Room air 07/20 1219 94 Room air 21 07/20 0929 93 Room air 07/20 0836 97.7 92 24 118/57 0.0 97 Nasal cannula 07/20 0806 97.9 91 16 109/63 78.2 92 Room air 07/20 0519 99.0 90 19 119/63 81.4 90 07/20 0300 90 31 118/59 83 92 07/20 0200 88 27 119/57 82 91 07/20 0100 88 31 116/56 80 92 07/20 0050 98.6 89 18 116/70 85.5 89 07/20 0000 90 36 115/63 83 93 07/19 2300 90 24 125/62 87 07/19 2200 88 26 122/60 84 93 07/19 2148 93 Room air 07/19 2100 86 29 120/57 82 94 07/19 2013 98.4 87 15 122/74 89.9 92 07/19 2000 86 30 122/58 84 96 07/19 1900 84 29 125/62 87 95 24 hour I O ending at 0700: 07/20 0700 07/19 1900 Intake Total 350 1130 Output Total 1100 1200 Balance -750 -70 Intake, Oral 350 1130 Number 2 Bowel Movements Output, Urine 1100 1200 Patient 86.8 kg Weight Weight Standing scale Measurement Method PATIENT WEIGHT: Weight (lb): 191 Weight (oz): 5.78 Weight (kg): 86.800 Medications Active Meds + DC'd Last 24 Hrs Midodrine (PROAMATINE) 5 MG 0900,1300,1700 PRN P O Sodium Chloride (SODIUM CHLORIDE) 10 ML ASDIR IV Amiodarone HCl (CORDARONE) 200 MG BID PO Ipratropium Kersey (ATROVENT) 500 MCG RTQ2H PRN PRN INH Lactulose (LACTULOSE) 20 GM DAILY PRN PRN PO Cyanocobalamin (Vitamin B-12 500 mcg tab) 500 MC G DAILY PO Ferrous Sulfate (FERROUS SULFATE) 325 MG DAILY P O Bisacodyl (DULCOLAX) 10 MG ONCE PRN RECTAL Atorvastatin Calcium (LIPITOR) 40 MG 2100 PO Clopidogrel Bisulfate (Plavix) 75 MG DAILY PO Polyethylene Glycol (MIRALAX) 17 GM DAILY PO Pantoprazole (PROTONIX) 40 MG DAILY@0600 PO Aspirin (ASPIRIN) 81 MG DAILY PO Docusate Sodium (COLACE) 100 MG BID PO Sennosides (Senna Lax 8.6 MG TABLET) 17.2 MG BED TIME PO Ipratropium Kersey (ATROVENT) 500 MCG RTQ4H INH Acetaminophen (TYLENOL) 650 MG Q4H PRN PRN PO Acetaminophen (TYLENOL) 650 MG Q4H PRN PRN RECTA L Dextrose/Water (DEXTROSE 10% IN WATER) 125 ML DIR PRN IV (CKD) Dextrose/Water (DEXTROSE 10% IN WATER) 250 ML DIR PRN IV (CKD) Glucagon (GLUCAGON) 1 MG ASDIR PRN IM Magnesium Sulfate (MAGNESIUM SULFATE 4GM/SWFI 10 0ML) 100 ML ASDIR PRN IV Magnesium Sulfate (MAGNESIUM SULFATE 2GM/SWFI 50 ML) 50 ML ASDIR PRN IV Magnesium Sulfate/Dextrose (MAGNESIUM SULFATE 1G M/D5W 100ML) 100 ML ASDIR PRN IV Ondansetron HCl (ZOFRAN) 4 MG Q6H PRN PRN IV Albumin Human (ALBUMINAR-25%) 12.5 GM ASDIR PRN IV Heparin Sodium (Porcine) (HEPARIN SODIUM) 3,000 UNIT ASDIR PRN DIALYSIS Lidocaine HCl (LIDOCAINE HCL/PF) 0.5 ML ASDIR NV N I-DERMAL (CKD) Mannitol (Mannitol 20%) 12.5 GM ASDIR PRN IV Sodium Chloride (SODIUM CHLORIDE 0.9%) 2,000 ML ASDIR PRN IV Tamsulosin HCl (Flomax 0.4 mg) 0.4 MG BEDTIME PO Physical Exam General appearance: alert, awake, oriented Head/eyes: atraumatic, normocephalic ENT: moist mucous membranes, normal nose Neck: non-tender, no JVD Cardiovascular: regular rate and rhythm Respiratory: clear to auscultation Abdomen: non-tender, soft Genitourinary: no bladder distention Extremities: no edema, no swelling 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ALTH: alert, oriented X 3, normal speech Skin: dry, intact Results Findings/Data: Laboratory Tests 07/20 Chemistry Sodium (134 - 147 mEq/L) 143 Potassium (3.4 - 5.0 mEq/L) 4.0 Chloride (100 - 108 mEq/L) 108 Carbon Dioxide (21 - 33 mEq/l) 25 Anion Gap (0 - 20) 14 BUN (7 - 18 mg/dL) 44 H Creatinine (0.6 - 1.3 mg/dL) 4.0 H Glomerular Filtr Rate (70 - 80) 14.5 L Glucose (70 - 110 mg/dL) 87 Calcium (8.0 - 10.5 mg/dL) 8.4 Magnesium (1.80 - 2.40 mg/dL) 2.05 Laboratory Tests 07/20 444 Hematology WBC (4.5 - 11.0 x10 3/uL) 14.7 H RBC (4.00 - 5.60 x10 6/uL) 2.67 L Hgb (12.5 - 16.9 g/dL) 8.0 L Hct (37.5 - 50.7 %) 25.6 L MCV (81.0 - 99.0 fL) 95.9 MCH (27.0 - 33.0 pg) 30.0 MCHC (33.0 - 37.0 g/dL) 31.3 L RDW (11.5 - 14.5 %) 16.0 H Plt Count (150 - 400 x10 3/uL) 359 MPV (7.0 - 9.0 fL) 10.1 H Neut % (Auto) (56.0 - 77.0 %) 76.4 Lymph % (Auto) (14.0 - 32.0 %) 6.5 L [place] % (Auto) (4.8 - 9.0 %) 7.1 Eos % (Auto) (0.3 - 3.7 %) 7.8 H Baso % (Auto) (0.0 - 2.0 %) 0.8 Neut # (Auto) (2.0 - 7.6 x10 3/uL) 11.22 H Lymph # (Auto) (1.0 - 3.8 x10 3/uL) 0.95 L [place] # (Auto) (0.1 - 0.8 x10 3/uL) 1.04 H Eos # (Auto) (0.0 - 0.2 x10 3/uL) 1.14 H Baso # (Auto) (0.0 - 0.2 x10 3/uL) 0.12 Abs Immat Gran (auto) (0.00 - 0.03 x10 3/uL) 0. 20 H Add Manual Diff NO Immature Gran % (0.0 - 2.0 %) 1.4 Nucleated RBC % (0 - 0 %) 0.0 Nucleated RBCs # (Man) (0.0 - 0.1 x10 3/uL) 0.0 0 Treatment Prophylaxis Treatment Prophylaxis Drain(s)/tube(s): Drain(s)/tube(s): chest Diagnosis, Assessment Plan Free Text A P: Assessment: 1-CLAUDETTE likely from urinary retention. oliguric AK I now post op, and shock 2- non-STEMI: multivessel disease w main left. 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 Waters catheter is in place. 4-severe bilateral hydronephrosis 5- shock : Cardiogenic resolved. 6-hyperlipidemia 7- AGMA resolved. Plan: - unknown Scr baseline. -will be getting HD MWF here - Ultrasound showed severe bilateral hyd ronephrosis and medical renal disease. Continue Waters catheter. Urology consulted. - He underwent LHC on 07/03. - Started on HD on 07/04. - s/p CABG X5 on 07/08 -Adequate urine output volume after Lasix but no clearance. - stopped NaHCO3 as started on HD. -TDC placed 2/7. stble from nephrology for discharge to SNF Consultants: cardiology, cardiovascular surgery, nephrology Electronically Signed by Jackie Wan MD on 07/20 at 1716 RPT #:[id number] END OF REPORT 2022-07-20 14:11:00-00:00 [facility]) Cardiothoracic Surgery Prog REPORT#:[id number] REPORT STATUS: Signed DATE:07/20/22 TIME: 1411 PATIENT: SHERRI ARCE UNIT #: [id number] ROOM/BED: [place] [address] : 42 AGE: 81 SEX: M ATTEND: Srinath Kaur MD ADM AUTHOR: Rosalind Toribio * ALL edits or amendments must be made on the [email or web address] document * General Post-op: day 10 Status post: 07/08/22 CABG x 5 (MISTRY-LAD, SVG-Ladonna, SVG-OM1< SVG-OM3, S VG-PDA) ALAA EVH (RGSV) Subjective Chief complaint: s/p CABG no complaints Review of Systems Constitutional: Denies: chills, fever, malaise. Allergy/Immun: Denies: allergic reaction. Respiratory: Denies: SOB. Cardiovascular: Denies: chest pain, palpitations. GI: Denies: abdominal pain, nausea, vomiting. : Denies: dysuria, hematuria. Heme: Denies: bleeding. Neuro: Denies: dizziness, headache, vision change. All systems rev neg: except as marked Objective General VS/I O Last Documented: Result Date Time Pulse Ox 95 07/20 1232 FiO2 21 07/20 1232 O2 Delivery Room air 07/20 1232 B/P 133/66 07/20 1220 B/P Mean 88.4 07/20 1220 Temp 97.2 07/20 1220 Pulse 98 07/20 1220 Resp 18 07/20 1220 O2 Flow Rate 3 07/14 1151 24 hour I O ending at 0700: 07/20 0700 07/19 1900 Intake Total 350 1130 Output Total 1100 1200 Balance -750 -70 Intake, Oral 350 1130 Number 2 Bowel Movements Output, Urine 1100 1200 Patient 191 lb Weight Weight Standing scale Measurement Method PATIENT WEIGHT: Weight (lb): 191 Weight (oz): 5.78 Weight (kg): 86.800 Physical Exam General appearance: alert, oriented, mental stat us normal, no respiratory distress Wound/incision: Location: sternal Site condition: edges approximated, incision in tact HEENT: anicteric, mucosal membranes moist Neck: supple/no meningismus Cardiovascular: normal heart sounds, regular rat e rhythm Respiratory: aerating well, symmetric expansion, no distress Abdomen: soft, non-tender, no distention Genitourinary: no waters Extremities: moves all 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ALTH: alert, oriented X 3, normal speech, n o motor deficits Psychiatry: normal affect, normal mood Treatment Prophylaxis Treatment Prophylaxis Drain(s)/tube(s): Drain(s)/tube(s): chest Quality: Trauma Gen Surg Advanced Care Plan 65 or Older Discussed with: patient Diagnosis, Assessment Plan Hospital course to date: This is a 81-year-old gentleman who presented to an outside hospital with complaints of chest pains while walking at his home on Thursday. He denies any previous history of coronary artery disease or o ther NE. He was seen and evaluated at [facility]. He was found to have a urinary tract infection with urinary retention and acute kidne y. He was started on dialysis via a left femoral temporary catheter. He underw ent dialysis on Thursday, Thursday. Renal has been consulted During his work-up at outside hospital he underw ent Left heart catheterization showing sever e Left Main 70%. LAD: Proximal diffuse 80% stenosis and then diffuse 60% in the midsegment and on the distal segment, there is focal 70% stenosis. Diagonal branches w ith luminal irregularities. Left circumflex, codominant circulation with pro ximal 80%, mid 80 to 90% and then in the OM, there is proximal 60%, distal le ft circumflex has a 70% stenosis. RCA large and dominant with proximal 4 0% stenosis, mid 60% stenosis and then diffuse 50% stenosi s all the way distally and the PLV and the PDA with luminal irregularities. CV surgery consulted for evaluation for coronary bypass graft. CAROTIDS - No carotid stenosis CT chest complete IMPRESSION: Small bilateral pleural effusions with bibasila r atelectasis. Echo: 1. Left ventricle: The cavity size is at the upp er limits of normal. Wall thickness is mildly increased. Systolic fu nction is severely reduced. The estimated ejection fraction is 30- 34%. Moderate hypokinesis of the entire myocardium. Doppler p arameters are consistent with abnormal left ventricular relax ation (grade 1 diastolic dysfunction). 2. Pericardium, extracardiac: A small pericardia l effusion is identified along the left ventricular free wall, along the right ventricular free wall, and along the right atrial free wall . Assessment/Plan 1) CAD Mutlivessel Will obtain echo,carotids. 2) CLAUDETTE Started dialysis on Creatine 7.3 Renal consulted. 3) BPH- Urinary retention. Waters in place Workup for CABG underway. Will get functional assessment with PT. PFT pending Carotid dopplers- No disease Echo Pending Dialyiss per Renal. Baseline Cr unknown. 07/04 07/04 Doing well today, alert, up in the chair. Denies chest pain Echocardiogram showed LVEF 30 to 34%, mild MR, t rivial TR CT chest images reviewed Encourage I-S and mobilization Creatinine 5.5 from 7.3, good urine output. Pao l US showed bilateral severe hydronephrosis. Plan for HD today and tomorrow Will tentatively schedule patient for surgery on Thursday. Patient seen and plan reviewed with Dr Schwarz 07/05 Remains in a stable condition, denies chest pain BUN 53, creatinine 5.4. Plan for hemodia lysis today and tomorrow for clearance He is also on Lasix 20 mg IV twice daily, urine output 1.1 L overnight We will calculate risk of surgery with STS score Encourage I-S and mobilization Will tentatively schedule patient for surgery on Thursday. Pt seen and plan reviewed with Dr Schwarz 07/06 BUN 36, creatinine 4.4. Plan for hemodialysis to day Awaiting CABG tomorrow Surgery, risks involved, STS score, benefits, co mplications and alternatives were explained to the patient. He acknow ledged understanding and is willing to proceed N.p.o. after midnight Patient seen and plan reviewed with Dr. Schwarz 07/09/22 POD 1 CABG x 5 (MISTRY-LAD, SVG-Ladonna, SVG-OM1< SVG-OM3, S VG-PDA), RC ESPINOZA (RGSV) Patient hemodynamically unstable, on epi at 4, a nd vaso .04, decreased uop overnight- 150cc Started patient on CRRT 2k/3.5 Wean epi as tolerated, Cardiac incex 2.8-3 labs and chest x-ray reviewed, electroly marcie stable, hgb 6.5- transfuse 2 units PRBC On 4l nasal cannula- encourage incentive spirome ter and deep breathing Keep both chest tubes and monitor outputs Glycemic control on insulin drip Cardiac diet Bowel regimen protocol Pain management SCDs for DVT and PPI for GI prophylaxis PT/OT Monitor patient closely in CVICU Plan of care discussed with Dr. Schwarz 07/10/22 POD 2 Patient alert, awake, and oriented, no distres n oted labs and CXR reviewed stable Breathing comfortably on 3l nasal cannula- wean as tolerated to melissa O2 sats > 92 % Encourage I-S use and deep breathing On CRRT- able to remove 2.9L overnight- nephrolo gy following Cardiac index 3.1- wean off epi drip Keep chest tubes for now and monitor outputs Transition to sliding scale insulin- cardiac t Try to get patient out of bed to chair today- am bulate with PT/OT SCDs for DVT prophylaxis Keep patient in CVICU for close monitoring 07/11/22 POD 3 Patient in stable condition, overnight e vents noted- decreased urine output 35 ml last night-started on dopamine gtt for renal perfusion Cardiac index 3.5- epi currently at 2- will disc ontinue today, vasopressin at 0.02, added low dose midodrine 2.5 mg TID, repea t echocardiogram. Renal Following- trial Lasix Patient has Left femoral tem p dialysis cath, Will need tunneled dialysis IJ cath placed if need dialysis. On 5l nasal cannula- wean off as tolerat ed, encourage incentive spirometer and deep breathing Keep left pleural chest tube and monitor output- > 200 cc Tolerating diet, bowel regimen protocol PT/OT- patient out of bed to chair today- encour age ambulation DVT prophylaxis with SCDs Monitor patient closely in CVICU Plan discussed with multidisciplinary team Plan discussed with Dr Schwarz/ Dr Rodríguez 07/12/22 POD 5, Patient resting comfortable. Patient with hx of urinary r etention- After standing today- voided 1.4 L. Needs Urology consult for retention K 5.4- HD in progress. Dr Plaza following. CT output 20- DC today. Pacers remain in place. Patient has Left femoral tem p dialysis cath, Re-evaluate on Thursday if skilled nursing dialysis needed. Card: Remains in sinus rhythm. Respir: on 7 L NC O2 95% Dispo: Rehab consulted Patient seen and exmained by Dr Rodríguez. Plan discussed with Team 07/13/22 POD 5 Patient with no new complaints. Recieved HD yest erday. Requiring less oxygen, now on 3l nasal cannula- continue to wean off CXR reviewed left apical pne umothorax 4cm/30%, Chest tube drained 140 overnight, placed back on suction to clear pneumo, CT drianed 200cc th is AM. on suction. Labs reviewed- stable, decreased WBC, hgb stable , CR 3.9 Eating welll, +BM UO- 550CC, BP improved on midodrine. Continue PT/OT, ambulation and incentive spirome ter use Rehab folowing Monitor in ICU today Disucssed with Dr Schwarz- Adeola C femoral line and Central line today. DC art line. Will re-eval need for dialysis cath Thursday. Cons ider tunnelled cath if need. Patient seen and examined by Dr Rodríguez. Plan discussed with Care team. 07/14 POD 6 Patient in stable condition, no distress noted Remains on room air, O2 sats > 92%, encourage I- S use and deep breathing CXR shows moderate left apical pneumothorax unch anged CT remained on suction, no airleak no Consult IR for pigtail chest tube placement this morning Cardiac/renal diet Labs reviewed- K 5.1- repeat labs K 4.8 Nephrology following Continue therapy with PT/OT Follow up with urology for waters catheter- Dr Hunter carrera consulted. Monitor in CVICU Plan of care discussed with Dr Schwarz and multi disciplinary team 07/15/22 POD 7 Patient alert, awake, and oriented, no distress, no complaints at this time Breathing comfortable on room air CXR shows resolved pneumothorax LP and pigtail chest tube- no air leak noted, mi nimal output from LP 40 overnight Labs reviewed, K 5.2- corrected, follow up with nephrology to discuss need for dialysis Trend labs this afternoon Bowel regimen, +gas Waters catheter discontinued per urology- voiding trial this AM Ambulation and incentive spirometer use encourag ed DVT prophylaxis with SCDs Keep in ICU DISP: SNF- Case management Discussed plan of care with multidisciplinary david portillo and Dr. Schwarz 07/16/2022 POD 8 Patient doing well, alert, awake, and oriented O2 sats 93% on room air, encourage I-S CXR stable- no pneumo noted Left pigtail chest tube - no air leak, clamped t his morning, repeat CXR Placement of tunneled dialysis catheter (BioFlo DuraMax 28 cm) yesterday HD treatment done yesterday evening, plan for HD treatment today per nephrology Patient failed voiding trial, waters catheter rep laced- follow up with urology Eating well Continue PT/OT- ambulation Transfer to CV 1 intermediate care unit Discharge planning for SNF- CM following and to set up dialysis chair Patient seen with Dr. Allie louis and discussed plan of care with multidisciplinary team. 07/17/22 Patient in stable condition, no complaints Labs and CXR reviewed- stable Left pigtail chest tube discontinued yesterday- no pneumo noted Remains on room air, no distress- I-S encouraged Cardiac diet, +BM Keep waters per urology f/u outpt, continue floma x HD per nephrology- CM to setup outpt dialysis ch air Awaiting bed availability on CV 1 Discharge planning- SNF Plan of care discussed with multidisciplinary david portillo and Dr. Schwarz. 07/18 Patient in stable condition, no complaints Remains on room air, no distress- I-S encouraged Epicardial pacing wires discontinued. Limited ec ho to rule out pericardial effusion Keep waters per urology f/u outpt, continue floma x HD per nephrology- CM to setup outpt dialysis ch air Discharge planning- SNF Plan of care discussed with multidisciplinary david portillo and Dr. Schwarz. 07/19 No new events Echocardiogram done, report pending HD per nephrology- CM to setup outpt dialysis ch air [facility]ing [facility] Patient seen and plan reviewed with Dr. Schwarz 07/20 Remains in a stable condition. Echocardiogram showed LVEF 30 to 34%, trivial pe ricardial effusion HD schedule per nephrology Awaiting insurance approval for SNF Consultants: cardiology, cardiovascular surgery, nephrology at 1413 at 1940 RPT #:[id number] END OF REPORT 2022-07-20 12:04:00-00:00 [facility] Cardiology Progress Note REPORT#:[id number] REPORT STATUS: Signed DATE:07/20/22 TIME: 1204 PATIENT: SHERRI ARCE UNIT #: [id number] ROOM/BED: [place] [address] : 42 AGE: 81 SEX: M ATTEND: Jesus Larson MD ADM AUTHOR: Sonya Stacy CNP * ALL edits or amendments must be made on the [email or web address] document * Subjective Patient reports: No: complaints. Objective General VS/I O: 24 hour I O ending at 0700: 07/20 0700 07/19 1900 Intake Total 350 1130 Output Total 1100 1200 Balance -750 -70 Intake, Oral 350 1130 Number 2 Bowel Movements Output, Urine 1100 1200 Patient 86.8 kg Weight Weight Standing scale Measurement Method Vital Signs: Date Time Temp Pulse Resp B/P B/P Pulse O2 O2 Flow FiO2 Mean Ox Delivery Rate 07/20 0929 93 Room air 07/20 0836 36.5 92 24 118/57 0.0 97 Nasal cannula 07/20 0806 36.6 91 16 109/63 78.2 92 Room air 07/20 0519 37.2 90 19 119/63 81.4 90 07/20 0300 90 31 118/59 83 92 07/20 0200 88 27 119/57 82 91 07/20 0100 88 31 116/56 80 92 07/20 0050 37.0 89 18 116/70 85.5 89 07/20 0000 90 36 115/63 83 93 07/19 2300 90 24 125/62 87 07/19 2200 88 26 122/60 84 93 07/19 2148 93 Room air 07/19 2100 86 29 120/57 82 94 07/19 2013 36.9 87 15 122/74 89.9 92 07/19 2000 86 30 122/58 84 96 07/19 1900 84 29 125/62 87 95 07/19 1536 36.6 87 21 142/68 0.0 97 PATIENT WEIGHT: Weight (lb): 191 Weight (oz): 5.78 Weight (kg): 86.800 Medications: Active Meds + DC'd Last 24 Hrs Midodrine (PROAMATINE) 5 MG 0900,1300,1700 PRN P O Sodium Chloride (SODIUM CHLORIDE) 10 ML ASDIR IV Amiodarone HCl (CORDARONE) 200 MG BID PO Ipratropium Kersey (ATROVENT) 500 MCG RTQ2H PRN PRN INH Lactulose (LACTULOSE) 20 GM DAILY PRN PRN PO Cyanocobalamin (Vitamin B-12 500 mcg tab) 500 MC G DAILY PO Ferrous Sulfate (FERROUS SULFATE) 325 MG DAILY P O Bisacodyl (DULCOLAX) 10 MG ONCE PRN RECTAL Atorvastatin Calcium (LIPITOR) 40 MG 2100 PO Clopidogrel Bisulfate (Plavix) 75 MG DAILY PO Polyethylene Glycol (MIRALAX) 17 GM DAILY PO Pantoprazole (PROTONIX) 40 MG DAILY@0600 PO Aspirin (ASPIRIN) 81 MG DAILY PO Docusate Sodium (COLACE) 100 MG BID PO Sennosides (Senna Lax 8.6 MG TABLET) 17.2 MG BED TIME PO Ipratropium Kersey (ATROVENT) 500 MCG RTQ4H INH Acetaminophen (TYLENOL) 650 MG Q4H PRN PRN PO Acetaminophen (TYLENOL) 650 MG Q4H PRN PRN RECTA L Dextrose/Water (DEXTROSE 10% IN WATER) 125 ML DIR PRN IV (CKD) Dextrose/Water (DEXTROSE 10% IN WATER) 250 ML DIR PRN IV (CKD) Glucagon (GLUCAGON) 1 MG ASDIR PRN IM Magnesium Sulfate (MAGNESIUM SULFATE 4GM/SWFI 10 0ML) 100 ML ASDIR PRN IV Magnesium Sulfate (MAGNESIUM SULFATE 2GM/SWFI 50 ML) 50 ML ASDIR PRN IV Magnesium Sulfate/Dextrose (MAGNESIUM SULFATE 1G M/D5W 100ML) 100 ML ASDIR PRN IV Ondansetron HCl (ZOFRAN) 4 MG Q6H PRN PRN IV Albumin Human (ALBUMINAR-25%) 12.5 GM ASDIR PRN IV Heparin Sodium (Porcine) (HEPARIN SODIUM) 3,000 UNIT ASDIR PRN DIALYSIS Lidocaine HCl (LIDOCAINE HCL/PF) 0.5 ML ASDIR NV N I-DERMAL (CKD) Mannitol (Mannitol 20%) 12.5 GM ASDIR PRN IV Sodium Chloride (SODIUM CHLORIDE 0.9%) 2,000 ML ASDIR PRN IV Tamsulosin HCl (Flomax 0.4 mg) 0.4 MG BEDTIME PO Physical Exam General appearance: alert, awake, oriented, no a cute distress Head/Eyes: atraumatic ENT: moist mucosal membranes Neck: no JVD Cardiovascular: CV assessment: regular rate and rhythm, no murm ur Respiratory: decreased breath sounds, no distres s Abdomen: soft, non-tender, normal bowel sounds, no distention, no guarding Upper extremity: UE assessment: normal temperature, no edema Lower extremity: LE assessment: normal temperature, no edema Musculoskeletal: normal inspection 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ALTH: alert, oriented X 3, normal speech Skin: dry Psychiatry: normal affect Results Findings/Data: Laboratory Tests 07/205 Chemistry Sodium (134 - 147 mEq/L) 143 Potassium (3.4 - 5.0 mEq/L) 4.0 Chloride (100 - 108 mEq/L) 108 Carbon Dioxide (21 - 33 mEq/l) 25 Anion Gap (0 - 20) 14 BUN (7 - 18 mg/dL) 44 H Creatinine (0.6 - 1.3 mg/dL) 4.0 H Glomerular Filtr Rate (70 - 80) 14.5 L Glucose (70 - 110 mg/dL) 87 Calcium (8.0 - 10.5 mg/dL) 8.4 Magnesium (1.80 - 2.40 mg/dL) 2.05 Laboratory Tests 07/205 Hematology WBC (4.5 - 11.0 x10 3/uL) 14.7 H RBC (4.00 - 5.60 x10 6/uL) 2.67 L Hgb (12.5 - 16.9 g/dL) 8.0 L Hct (37.5 - 50.7 %) 25.6 L MCV (81.0 - 99.0 fL) 95.9 MCH (27.0 - 33.0 pg) 30.0 MCHC (33.0 - 37.0 g/dL) 31.3 L RDW (11.5 - 14.5 %) 16.0 H Plt Count (150 - 400 x10 3/uL) 359 MPV (7.0 - 9.0 fL) 10.1 H Neut % (Auto) (56.0 - 77.0 %) 76.4 Lymph % (Auto) (14.0 - 32.0 %) 6.5 L [place] % (Auto) (4.8 - 9.0 %) 7.1 Eos % (Auto) (0.3 - 3.7 %) 7.8 H Baso % (Auto) (0.0 - 2.0 %) 0.8 Neut # (Auto) (2.0 - 7.6 x10 3/uL) 11.22 H Lymph # (Auto) (1.0 - 3.8 x10 3/uL) 0.95 L [place] # (Auto) (0.1 - 0.8 x10 3/uL) 1.04 H Eos # (Auto) (0.0 - 0.2 x10 3/uL) 1.14 H Baso # (Auto) (0.0 - 0.2 x10 3/uL) 0.12 Abs Immat Gran (auto) (0.00 - 0.03 x10 3/uL) 0. 20 H Add Manual Diff NO Immature Gran % (0.0 - 2.0 %) 1.4 Nucleated RBC % (0 - 0 %) 0.0 Nucleated RBCs # (Man) (0.0 - 0.1 x10 3/uL) 0.0 0 Laboratory Tests 07/20 0445 Chemistry Magnesium (1.80 - 2.40 mg/dL) 2.05 Echo results: Summary: 1. Left ventricle: The cavity size is normal. Wa ll thickness is mildly increased. Systolic function is severely reduce d. The estimated ejection fraction is 30-34%. 2. Right ventricle: Systolic function is mildly reduced. 3. Left atrium: The atrium is mildly dilated. 4. Pericardium, extracardiac: A trivial pericard ial effusion is identified. Diagnosis, Assessment Plan Problem List/A P: 1. HTN (hypertension) 2. CLAUDETTE (acute kidney injury) 3. CAD (coronary artery disease) 4. Dyslipidemia 5. BPH (benign prostatic hyperplasia) Free Text DxA P Notes Free Text DxA P Notes: Mr. Arce is a pleasant 81 y/o M w/ PMHx: HTN, HLD presented to [facility] on 06/28/22 for chest pa in and sob. He was diagnosed NSTEMI. [facility] showed multivessel CAD. Transferred to [facility] for CABG. 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 urology consulted for bladded outlet obstructio n and hydronephrosis, started on Flomax HD per nephro - HTN. bp stable, midodrine as needed - HLD. On statins. - Anemia. monitor Doing well VS stable SNF pending at 1208 Electronically Signed by Liset Ennis MD on at 0859 RPT #:[id number] END OF REPORT 2022-07-20 11:38:00-00:00 [facility] ([facility]) Hospitalist Progress Note REPORT#:[id number] REPORT STATUS: Signed DATE:07/20/22 TIME: 1138 PATIENT: SHERRI ARCE UNIT #: [id number] [place] [facility] [place] AGE: 81 SEX: M ATTEND: Srinath Kaur MD ADM AUTHOR: Srinath Kaur MD * ALL edits or amendments must be made on the el [employer]/computer document * Subjective Chief complaint: NO COMPLAINTS, HE KNOWS TO GO TO SNF SOON HPI: 81 y/o man with PMHx of HTN, Dyslipidemia [facility] with chest pain and found to have a NSTEMI and also acute renal failure. Underwent cardiac c ath yesterday and found to have severe CAD including left main disease. Transfer here f or CABG evaluation. He also underwent HD Thursday and Thursday of this week. HD catheter was place at [facility]. Currently not having any chest pain. Had chest pain with SOB when he presentted to the previous hospital. Objective General VS/I O: Vital Signs: Date Time Temp Pulse Resp B/P B/P Pulse O2 O2 Flow FiO2 Mean Ox Delivery Rate 07/20 0929 93 Room air 07/20 0836 97.7 92 24 118/57 0.0 97 Nasal cannula 07/20 0806 97.9 91 16 109/63 78.2 92 Room air 07/20 0519 99.0 90 19 119/63 81.4 90 07/20 0300 90 31 118/59 83 92 07/20 0200 88 27 119/57 82 91 07/20 0100 88 31 116/56 80 92 07/20 0050 98.6 89 18 116/70 85.5 89 07/20 0000 90 36 115/63 83 93 07/19 2300 90 24 125/62 87 07/19 2200 88 26 122/60 84 93 07/19 2148 93 Room air 07/19 2100 86 29 120/57 82 94 07/19 2013 98.4 87 15 122/74 89.9 92 07/19 2000 86 30 122/58 84 96 07/19 1900 84 29 125/62 87 95 07/19 1536 97.9 87 21 142/68 0.0 97 24 hour I O ending at 0700: 07/20 0700 07/19 1900 Intake Total 350 1130 Output Total 1100 1200 Balance -750 -70 Intake, Oral 350 1130 Number 2 Bowel Movements Output, Urine 1100 1200 Patient 191 lb Weight Weight Standing scale Measurement Method PATIENT WEIGHT: Weight (lb): 191 Weight (oz): 5.78 Weight (kg): 86.800 Medications: Active Meds + DC'd Last 24 Hrs Midodrine (PROAMATINE) 5 MG 0900,1300,1700 PRN P O Sodium Chloride (SODIUM CHLORIDE) 10 ML ASDIR IV Amiodarone HCl (CORDARONE) 200 MG BID PO Ipratropium Kersey (ATROVENT) 500 MCG RTQ2H PRN PRN INH Lactulose (LACTULOSE) 20 GM DAILY PRN PRN PO Cyanocobalamin (Vitamin B-12 500 mcg tab) 500 MC G DAILY PO Ferrous Sulfate (FERROUS SULFATE) 325 MG DAILY P O Bisacodyl (DULCOLAX) 10 MG ONCE PRN RECTAL Atorvastatin Calcium (LIPITOR) 40 MG 2100 PO Clopidogrel Bisulfate (Plavix) 75 MG DAILY PO Polyethylene Glycol (MIRALAX) 17 GM DAILY PO Pantoprazole (PROTONIX) 40 MG DAILY@0600 PO Aspirin (ASPIRIN) 81 MG DAILY PO Docusate Sodium (COLACE) 100 MG BID PO Sennosides (Senna Lax 8.6 MG TABLET) 17.2 MG BED TIME PO Ipratropium Kersey (ATROVENT) 500 MCG RTQ4H INH Acetaminophen (TYLENOL) 650 MG Q4H PRN PRN PO Acetaminophen (TYLENOL) 650 MG Q4H PRN PRN RECT AL Dextrose/Water (DEXTROSE 10% IN WATER) 125 ML DIR PRN IV (CKD) Dextrose/Water (DEXTROSE 10% IN WATER) 250 ML DIR PRN IV (CKD) Glucagon (GLUCAGON) 1 MG ASDIR PRN IM Magnesium Sulfate (MAGNESIUM SULFATE 4GM/SWFI 10 0ML) 100 ML ASDIR PRN IV Magnesium Sulfate (MAGNESIUM SULFATE 2GM/SWFI 50 ML) 50 ML ASDIR PRN IV Magnesium Sulfate/Dextrose (MAGNESIUM SULFATE 1G M/D5W 100ML) 100 ML ASDIR PRN IV Ondansetron HCl (ZOFRAN) 4 MG Q6H PRN PRN IV Albumin Human (ALBUMINAR-25%) 12.5 GM ASDIR PRN IV Heparin Sodium (Porcine) (HEPARIN SODIUM) 3,000 UNIT ASDIR PRN DIALYSIS Lidocaine HCl (LIDOCAINE HCL/PF) 0.5 ML ASDIR NV N I-DERMAL (CKD) Mannitol (Mannitol 20%) 12.5 GM ASDIR PRN IV Sodium Chloride (SODIUM CHLORIDE 0.9%) 2,000 ML ASDIR PRN IV Tamsulosin HCl (Flomax 0.4 mg) 0.4 MG BEDTIME PO Physical Exam General appearance: chronically ill appearing, f rail, alert, awake Neck: no JVD Cardiovascular: normal heart sounds, regular rat e rhythm Respiratory: aerating well, clear to auscultatio n, symmetric expansion, no distress Abdomen: non-tender, normal bowel sounds , soft, no distention, no guarding, no rebound Genitourinary: urinary catheter Extremities: no edema Musculoskeletal: normal inspection 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ALTH: normal speech, no motor deficits, no sensory deficits Skin: intact, normal color, no rash Psychiatry: normal affect Results Findings/Data: Laboratory Tests 07/20 Chemistry Sodium (134 - 147 mEq/L) 143 Potassium (3.4 - 5.0 mEq/L) 4.0 Chloride (100 - 108 mEq/L) 108 Carbon Dioxide (21 - 33 mEq/l) 25 Anion Gap (0 - 20) 14 BUN (7 - 18 mg/dL) 44 H Creatinine (0.6 - 1.3 mg/dL) 4.0 H Glomerular Filtr Rate (70 - 80) 14.5 L Glucose (70 - 110 mg/dL) 87 Calcium (8.0 - 10.5 mg/dL) 8.4 Magnesium (1.80 - 2.40 mg/dL) 2.05 Laboratory Tests 07/20 444 Hematology WBC (4.5 - 11.0 x10 3/uL) 14.7 H RBC (4.00 - 5.60 x10 6/uL) 2.67 L Hgb (12.5 - 16.9 g/dL) 8.0 L Hct (37.5 - 50.7 %) 25.6 L MCV (81.0 - 99.0 fL) 95.9 MCH (27.0 - 33.0 pg) 30.0 MCHC (33.0 - 37.0 g/dL) 31.3 L RDW (11.5 - 14.5 %) 16.0 H Plt Count (150 - 400 x10 3/uL) 359 MPV (7.0 - 9.0 fL) 10.1 H Neut % (Auto) (56.0 - 77.0 %) 76.4 Lymph % (Auto) (14.0 - 32.0 %) 6.5 L [place] % (Auto) (4.8 - 9.0 %) 7.1 Eos % (Auto) (0.3 - 3.7 %) 7.8 H Baso % (Auto) (0.0 - 2.0 %) 0.8 Neut # (Auto) (2.0 - 7.6 x10 3/uL) 11.22 H Lymph # (Auto) (1.0 - 3.8 x10 3/uL) 0.95 L [place] # (Auto) (0.1 - 0.8 x10 3/uL) 1.04 H Eos # (Auto) (0.0 - 0.2 x10 3/uL) 1.14 H Baso # (Auto) (0.0 - 0.2 x10 3/uL) 0.12 Abs Immat Gran (auto) (0.00 - 0.03 x10 3/uL) 0. 20 H Add Manual Diff NO Immature Gran % (0.0 - 2.0 %) 1.4 Nucleated RBC % (0 - 0 %) 0.0 Nucleated RBCs # (Man) (0.0 - 0.1 x10 3/uL) 0.0 0 Diagnosis, Assessment Plan Consultants: cardiology, cardiovascular surgery, nephrology Free Text DxA P Notes Free text DxA P notes: NSTEMI, CAD (coronary artery disease), S/P CABG X 5 ON 07/08- STABLE, CARD/CTS SEEN, TX TO SNF ON THURSDAY, EF 30-35% patient presented with NSTEMI and found to hve severe CAD. Cardiac cath shows: Left Main - Distal 70% LAD - Proximal 80% with another 60% and 70% les sions Cir - Proximal 80%,mid 80-90%, Distal 70% and O M 60% RCA - large dominant with proximal 40%, Mid 60% . Echo: ef 30-34%, mod hypokinesis of entire myoc ardium, grade 1 diastolic dysfunction Patient on ASA, plavix, BB and Statin on amiodarone, Beta-tomas as tolerated for lo w BP, Acute systolic heart failure - STABLE, NO CHARLY/BB DUE TO LOW BP, ON MIDODRINE PRN , EF 30-35% Echocardiac with estimated LVEF of 30 to 34% wi grade 1 diastolic dysfunction -s/p Lasix 20 mg twice daily 07/05 -on metoprolol 12.5 mg bid on hold now, BP low -no ACEI/ spironolactione for CLAUDETTE -Start GDMT prior to discharge CLAUDETTE (acute kidney injury) DUE TO POST-OBS NEPHRO REMY - ON HD MWF, RENAL/UROL SEEN, NEEDS SNF WITH DIALYSIS ACCESS, CONT WATERS , FLOMAX, CAP SEWER FROM 7.0 TO 4.3 No prior Hx of renal disease. hx of BPH and casimiro ated with Fosamax w/o improvement nd continue to h ave difficulty urinating. On admission was found to be on acute renal filaure and had received HD tw ice prior to arrival here ( thursday and thursday). 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 BPH (benign prostatic hyperplasia) - ABOVE, O N WATERS Started on Flomax at the previous hospital, thais l continue with it. Waters catheter in place, continue Waters cathete r as per nephrology 07/05 Goiter Hx of Goiter and surgical resection. TSH 3.33, within normal limits. Patient is not on Thyroid medication. RXT LEUKOCYTOSIS - STABLE, NO INFECTION DEBILITY - OT/PT SEEN, SNF TX SOON UTI continue Rocephin for empiric treatment pend ing results of urine culture No growth for 48 hours DVT prophylaxis: Heparin 5000 units every 8 hour s Diet: Cardiac diet CODE STATUS: Full code Disposition: Status post CABG x5 on 07/09, hemodia lysis as per nephrology. Worked with PT in his room, on 2 L oxygen via na cj cannula. PT/OT on board. Rehab consulted. Transfer to floor. Quality: Gen Med Crit Care VTE Prophylaxis VTE prophylaxis initiated: yes Advanced Care Plan 65 or Older Discussed with: patient Discussion included: living will (none), power of employment law attorney (none), code status ( full code) Electronically Signed by Srinath Kaur MD on 07/20 at 1141 RPT #:[id number] END OF REPORT 2022-07-20 07:05:00-00:00 [facility] Progress Note REPORT#:[id number] REPORT STATUS: Signed DATE:07/20/22 TIME: 704 PATIENT: SHERRI ARCE UNIT #: [id number] ROOM/BED: [place] [address] : 42 AGE: 81 SEX: M ATTEND: Srinath Kaur MD ADM AUTHOR: Magdaleno Washburn * ALL edits or amendments must be made on the [email or web address] document * Subjective Chief complaint: Rehab follow-up Doing well. Denies pain or sob Pleasant Denies NAIK/N/V/D/CP 14 systems reviewed and neg. except that above. Objective General VS: Vital Signs: Date Time Temp Pulse Resp B/P B/P Pulse O2 O2 F low FiO2 Mean Ox Delivery Rate 07/20 0519 99.0 90 19 119/63 81.4 90 07/20 0300 90 31 118/59 83 92 07/20 0200 88 27 119/57 82 91 07/20 0100 88 31 116/56 80 92 07/20 0050 98.6 89 18 116/70 85.5 89 07/20 0000 90 36 115/63 83 93 07/19 2300 90 24 125/62 87 07/19 2200 88 26 122/60 84 93 07/19 2148 93 Room air 07/19 2100 86 29 120/57 82 94 07/19 2013 98.4 87 15 122/74 89.9 92 07/19 2000 86 30 122/58 84 96 07/19 1900 84 29 125/62 87 95 07/19 1536 97.9 87 21 142/68 0.0 97 07/19 0903 95 Room air 07/19 0828 98.1 91 20 119/79 0.0 98 PATIENT WEIGHT: Weight (lb): 191 Weight (oz): 9.31 Weight (kg): 86.900 Medications: Active Meds + DC'd Last 24 Hrs Midodrine (PROAMATINE) 5 MG 0900,1300,1700 PRN P O Sodium Chloride (SODIUM CHLORIDE) 10 ML ASDIR IV Amiodarone HCl (CORDARONE) 200 MG BID PO Ipratropium Kersey (ATROVENT) 500 MCG RTQ2H PRN PRN INH Lactulose (LACTULOSE) 20 GM DAILY PRN PRN PO Cyanocobalamin (Vitamin B-12 500 mcg tab) 500 MC G DAILY PO Ferrous Sulfate (FERROUS SULFATE) 325 MG DAILY P O Bisacodyl (DULCOLAX) 10 MG ONCE PRN RECTAL Atorvastatin Calcium (LIPITOR) 40 MG 2100 PO Clopidogrel Bisulfate (Plavix) 75 MG DAILY PO Polyethylene Glycol (MIRALAX) 17 GM DAILY PO Pantoprazole (PROTONIX) 40 MG DAILY@0600 PO Aspirin (ASPIRIN) 81 MG DAILY PO Docusate Sodium (COLACE) 100 MG BID PO Sennosides (Senna Lax 8.6 MG TABLET) 17.2 MG BED TIME PO Ipratropium Kersey (ATROVENT) 500 MCG RTQ4H INH Acetaminophen (TYLENOL) 650 MG Q4H PRN PRN PO Acetaminophen (TYLENOL) 650 MG Q4H PRN PRN RECTA L Dextrose/Water (DEXTROSE 10% IN WATER) 125 ML DIR PRN IV (CKD) Dextrose/Water (DEXTROSE 10% IN WATER) 250 ML DIR PRN IV (CKD) Glucagon (GLUCAGON) 1 MG ASDIR PRN IM Magnesium Sulfate (MAGNESIUM SULFATE 4GM/SWFI 10 0ML) 100 ML ASDIR PRN IV Magnesium Sulfate (MAGNESIUM SULFATE 2GM/SWFI 50 ML) 50 ML ASDIR PRN IV Magnesium Sulfate/Dextrose (MAGNESIUM SULFATE 1G M/D5W 100ML) 100 ML ASDIR PRN IV Ondansetron HCl (ZOFRAN) 4 MG Q6H PRN PRN IV Albumin Human (ALBUMINAR-25%) 12.5 GM ASDIR PRN IV Heparin Sodium (Porcine) (HEPARIN SODIUM) 3,000 UNIT ASDIR PRN DIALYSIS Lidocaine HCl (LIDOCAINE HCL/PF) 0.5 ML ASDIR NV N I-DERMAL (CKD) Mannitol (Mannitol 20%) 12.5 GM ASDIR PRN IV Sodium Chloride (SODIUM CHLORIDE 0.9%) 2,000 ML ASDIR PRN IV Tamsulosin HCl (Flomax 0.4 mg) 0.4 MG BEDTIME PO Functional Progress Functional progress: Gait Cmt: PATIENT SEMI-RECLINED IN BED UPON ARR IVAL AND REPORTS OF NO PAIN AND AGREEABLE TO THERAPY. PATIENT EDUCATED ON STERNAL PRECAUTIONS REQUIRING CUES TO REDUCE USE OF ARMS DURING BED MOBILITY. PATIENT AMBULATED 200FT X2 WITH RW AND WC TO FOLLOW MIN A FOR STEADYING. PATIENT DID REQUIRE SEATED REST BREAK DUE TO SOB BUT O2 SAT WNL. PATIENT RETURNED BACK TO RECLINER AND LEFT WITH ALL NEEDS MET. RN NOTIFIED AND AWARE OF TREATMENT SESSION. If this is the patient's last treatment, this e ntry serves as the discharge summary: 075 Start Time: 749 Stop Time: 813 Treatment Asif e: ( minutes) 0:24 Completed by: Galindo Berry Conference/Supervising PT: Yes Supervising Therapist: Sincere Doran . BED MOBILITY: Yes Rolling Right/Left: Minimal Assistance Supine to Sit: Minimal Assistance Sit to Supine: Not Tested Scooting in bed: Minimal Assistance TRANSFERS: Yes Bed to/from chair: Minimal Assistance Sit to/from stand: Minimal Assistance Physical Exam General appearance: alert, awake Psych: alert, oriented x 3 HEENT: anicteric, sclera clear Neck: supple, no JVD Cardiovascular: regular rate rhythm, S1/S2 Respiratory: aerating well, clear bilaterally Abdomen: bowel sounds present, non-distended, so ft Skin: intact, no rash Musculoskeletal - general: Musculoskeletal - general: joints normal, meagan l muscle mass, normal tone 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ALTH: alert, oriented X 3, CNII-XII intact Results Findings/Data: Laboratory Tests 07/19 07/19 07/18 07/18 07/18 0515 0515 1331 0618 0618 Chemistry Sodium (134 - 147 mEq/L) 141 143 Potassium (3.4 - 5.0 mEq/L) 4.0 3.8 Chloride (100 - 108 mEq/L) 106 107 Carbon Dioxide (21 - 33 mEq/l) 26 25 Anion Gap (0 - 20) 13 15 BUN (7 - 18 mg/dL) 31 H 47 H Creatinine (0.6 - 1.3 mg/dL) 3.2 H 4.2 H Glomerular Filtr Rate (70 - 80) 19.0 L 13.7 L Glucose (70 - 110 mg/dL) 91 91 POC Glucose (70 - 110 MG/DL) 85 Calcium (8.0 - 10.5 mg/dL) 8.0 8.7 Magnesium (1.80 - 2.40 mg/dL) 2.12 1.97 Laboratory Tests 07/19 07/18 0515 0618 Hematology WBC (4.5 - 11.0 x10 3/uL) 11.3 H 12.4 H RBC (4.00 - 5.60 x10 6/uL) 2.74 L 2.84 L Hgb (12.5 - 16.9 g/dL) 8.1 L 8.3 L Hct (37.5 - 50.7 %) 25.7 L 26.9 L MCV (81.0 - 99.0 fL) 93.8 94.7 MCH (27.0 - 33.0 pg) 29.6 29.2 MCHC (33.0 - 37.0 g/dL) 31.5 L 30.9 L RDW (11.5 - 14.5 %) 16.1 H 15.9 H Plt Count (150 - 400 x10 3/uL) 365 363 MPV (7.0 - 9.0 fL) 10.2 H 10.1 H Neut % (Auto) (56.0 - 77.0 %) 72.3 73.2 Lymph % (Auto) (14.0 - 32.0 %) 9.3 L 8.5 L [place] % (Auto) (4.8 - 9.0 %) 8.1 8.8 Eos % (Auto) (0.3 - 3.7 %) 7.9 H 7.2 H Baso % (Auto) (0.0 - 2.0 %) 0.7 0.6 Neut # (Auto) (2.0 - 7.6 x10 3/uL) 8.15 H 9.05 H Lymph # (Auto) (1.0 - 3.8 x10 3/uL) 1.05 1.05 [place] # (Auto) (0.1 - 0.8 x10 3/uL) 0.91 H 1.09 H Eos # (Auto) (0.0 - 0.2 x10 3/uL) 0.89 H 0.89 H Baso # (Auto) (0.0 - 0.2 x10 3/uL) 0.08 0.08 Abs Immat Gran (auto) (0.00 - 0.03 x10 3/uL) 0. 19 H 0.21 H Add Manual Diff NO NO Immature Gran % (0.0 - 2.0 %) 1.7 1.7 Nucleated RBC % (0 - 0 %) 0.0 0.0 Nucleated RBCs # (Man) (0.0 - 0.1 x10 3/uL) 0.0 0 0.00 Recent Impressions: ULTRASOUND - DUP VEIN WOJCIECH 07/17 1519 Report Impression - Status: SIGNED Entered: 07/17/2022 1545 IMPRESSION: No evidence of deep vein thrombosis. Superficial thrombus in the right greater saphen ous vein. Complex hypoechoic area in the right inguinal re gion without internal vascular flow or peripheral hyperemia m easuring 4.2 x 1.4 x 2.3 cm which may represent a hematoma. Impression By: [email or web address] Yasmin Palma M.D. RADIOLOGY - XR CHEST 1 V 07/18 0559 Report Impression - Status: SIGNED Entered: 07/18/2022 0755 IMPRESSION: 1. Stable postoperative chest. 2. Stable pulmonary opacities likely combination of atelectasis and airspace disease. 3. Stable pleural effusions. Stable loculated le ft pleural fluid and or thickening extending to the apex. Impression By: Robert Ratliff M.D. RADIOLOGY - XR CHEST 1 V 07/19 0754 Report Impression - Status: SIGNED Entered: 07/19/2022 1126 IMPRESSION: Bibasilar consolidation has some improved aerati on bilaterally. Small bilateral pleural effusions. Mild atelecta sis about the left perihilar region. No other focal infiltrates wit hin the lungs. Left apical pleural thickening similar to prior study. Impression By: [email or web address] - Chaim Alonzo M.D. Diagnosis, Assessment Plan Free Text A P: Non-STEMI Multivessel CAD S/p CABG x5 Physical deconditioning Impaired mobility and gait Postoperative anemia Dyslipidemia Hypertension CLAUDETTE Acute systolic heart failure Hemodynamic issues postop Leukocytosis trending down Pleural effusion and atelectasis Plan: Continue PT/OT Out of bed to chair Work on strength, bed mobility, transfers, gait Sternal precaution Increase endurance Fall precautions Monitor p.o. intake and nutrition Strict decubitus precautions Monitor anemia. Persistent left pneumothorax. IR guided pigtail place. CXR shows expansion of the lung Urology consulted -Pt on [facility] managing renal issues and elevated K+ Utilize IS to reduce atelectasis Advance therapies as tolerated Pt lives alone and has 5 to 6 stairs to enter ho use SNF order has been placed. Will require insuranc e approval for SNF, dialysis clinic acceptance, approval for [employer] prior t o discharge Total time was 33 minutes > 50% with patient per forming physical examination, discussing plan of care, goals, therapies, progr ess, medications, labs, SNF. All questions answered Rehab attestation: . Electronically Signed by Magdaleno Washburn on 0 07/21/22 at 0437 RPT #:[id number] END OF REPORT 2022-07-19 17:21:00-00:00 [facility]ACL [facility] ([facility]) Nephrology Progress Note REPORT#:[id number] REPORT STATUS: Signed DATE:07/19/22 TIME: 172 PATIENT: SHERRI ARCE UNIT #: [id number] ROOM/BED: [place] [address] : 42 AGE: 81 SEX: M ATTEND: Srinath Kaur MD ADM AUTHOR: Jackie Wan MD * ALL edits or amendments must be made on the [email or web address] document * Subjective Chief complaint: Feeling okay and has no complaints at this time. Review of Systems Constitutional: Reports: generalized weakness. All systems rev neg: except as marked Objective General VS/I O: Vital Signs: Date Time Temp Pulse Resp B/P B/P Pulse O2 O2 F low FiO2 Mean Ox Delivery Rate 07/19 1536 97.9 87 21 142/68 0.0 97 07/19 0903 95 Room air 07/19 0828 98.1 91 20 119/79 0.0 98 07/19 0600 93 23 98/55 71 92 07/19 0500 85 33 111/58 77 92 07/19 0400 84 29 112/55 78 94 07/19 0354 98.4 85 14 112/61 77.7 89 Room air 07/19 0300 83 31 113/55 78 91 07/19 0200 82 28 103/55 74 93 07/19 0100 84 29 114/55 79 91 07/19 0050 98.2 85 16 116/64 81.2 91 Room air 07/19 0000 87 31 113/63 81 92 07/18 2300 87 29 120/60 84 92 07/18 2117 99.5 86 14 122/66 84.6 92 Room air 07/18 2058 98 Room air 21 24 hour I O ending at 0700: 07/19 0700 07/18 1900 Intake Total 500 850.00 Output Total 700 1050 Balance -200 -200.00 Intake, 0 Hemodialysis Intake, IV 50.00 Intake, Oral 500 800 Output, Urine 700 1050 Patient 86.9 kg Weight Weight Standing scale Measurement Method PATIENT WEIGHT: Weight (lb): 191 Weight (oz): 9.31 Weight (kg): 86.900 Medications Active Meds + DC'd Last 24 Hrs Midodrine (PROAMATINE) 5 MG 0900,1300,1700 PRN P O Sodium Chloride (SODIUM CHLORIDE) 10 ML ASDIR IV Amiodarone HCl (CORDARONE) 200 MG BID PO Ipratropium Kersey (ATROVENT) 500 MCG RTQ2H PRN PRN INH Lactulose (LACTULOSE) 20 GM DAILY PRN PRN PO Cyanocobalamin (Vitamin B-12 500 mcg tab) 500 MC G DAILY PO Ferrous Sulfate (FERROUS SULFATE) 325 MG DAILY P O Bisacodyl (DULCOLAX) 10 MG ONCE PRN RECTAL Atorvastatin Calcium (LIPITOR) 40 MG 2100 PO Clopidogrel Bisulfate (Plavix) 75 MG DAILY PO Polyethylene Glycol (MIRALAX) 17 GM DAILY PO Pantoprazole (PROTONIX) 40 MG DAILY@0600 PO Aspirin (ASPIRIN) 81 MG DAILY PO Docusate Sodium (COLACE) 100 MG BID PO Sennosides (Senna Lax 8.6 MG TABLET) 17.2 MG BED TIME PO Ipratropium Kersey (ATROVENT) 500 MCG RTQ4H IN H Acetaminophen (TYLENOL) 650 MG Q4H PRN PRN PO Acetaminophen (TYLENOL) 650 MG Q4H PRN PRN RECTA L Dextrose/Water (DEXTROSE 10% IN WATER) 125 ML A SDIR PRN IV (CKD) Dextrose/Water (DEXTROSE 10% IN WATER) 250 ML DIR PRN IV (CKD) Glucagon (GLUCAGON) 1 MG ASDIR PRN IM Magnesium Sulfate (MAGNESIUM SULFATE 4GM/SWFI 10 0ML) 100 ML ASDIR PRN IV Magnesium Sulfate (MAGNESIUM SULFATE 2GM/SWFI 50 ML) 50 ML ASDIR PRN IV Magnesium Sulfate/Dextrose (MAGNESIUM SULFATE 1G M/D5W 100ML) 100 ML ASDIR PRN IV Ondansetron HCl (ZOFRAN) 4 MG Q6H PRN PRN IV Albumin Human (ALBUMINAR-25%) 12.5 GM ASDIR PRN IV Heparin Sodium (Porcine) (HEPARIN SODIUM) 3,000 UNIT ASDIR PRN DIALYSIS Lidocaine HCl (LIDOCAINE HCL/PF) 0.5 ML ASDIR NV N I-DERMAL (CKD) Mannitol (Mannitol 20%) 12.5 GM ASDIR PRN IV Sodium Chloride (SODIUM CHLORIDE 0.9%) 2,000 ML ASDIR PRN IV Tamsulosin HCl (Flomax 0.4 mg) 0.4 MG BEDTIME PO Dietitian nutrition assessment The data set between the solid lines has been im ported from the dietitian's assessment. BMI Calculated: 26.0 Nutrition related diagnosis: Nutrition diagnosis details: Nutrition problem: Increased nutrient needs Nutrition etiology: Chronic disease Nutrition signs and symptoms: ESTIMATED NEEDS S/ P CABG Nutrition prescription: 1. RECOMMEND CONTINUE RE NAL DIET. 2. CONTINUE NEPRO BID. 3. MONITOR PO, WT, LABS, BM. Dietitian name: Trang Rodriguez, DIET Assessment completed: 07/16/22 Physical Exam General appearance: alert, awake, oriented Head/eyes: atraumatic, normocephalic ENT: moist mucous membranes, normal nose Neck: non-tender, no JVD Cardiovascular: regular rate and rhythm Respiratory: clear to auscultation Abdomen: non-tender, soft Genitourinary: no bladder distention Extremities: no edema, no swelling 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ALTH: alert, oriented X 3, normal speech Skin: dry, intact Results Findings/Data: Laboratory Tests 07/19 07/19 0515 0567 Chemistry Sodium (134 - 147 mEq/L) 141 Potassium (3.4 - 5.0 mEq/L) 4.0 Chloride (100 - 108 mEq/L) 106 Carbon Dioxide (21 - 33 mEq/l) 26 Anion Gap (0 - 20) 13 BUN (7 - 18 mg/dL) 31 H Creatinine (0.6 - 1.3 mg/dL) 3.2 H Glomerular Filtr Rate (70 - 80) 19.0 L Glucose (70 - 110 mg/dL) 91 Calcium (8.0 - 10.5 mg/dL) 8.0 Magnesium (1.80 - 2.40 mg/dL) 2.12 Laboratory Tests 07/19 0515 Hematology WBC (4.5 - 11.0 x10 3/uL) 11.3 H RBC (4.00 - 5.60 x10 6/uL) 2.74 L Hgb (12.5 - 16.9 g/dL) 8.1 L Hct (37.5 - 50.7 %) 25.7 L MCV (81.0 - 99.0 fL) 93.8 MCH (27.0 - 33.0 pg) 29.6 MCHC (33.0 - 37.0 g/dL) 31.5 L RDW (11.5 - 14.5 %) 16.1 H Plt Count (150 - 400 x10 3/uL) 365 MPV (7.0 - 9.0 fL) 10.2 H Neut % (Auto) (56.0 - 77.0 %) 72.3 Lymph % (Auto) (14.0 - 32.0 %) 9.3 L [place] % (Auto) (4.8 - 9.0 %) 8.1 Eos % (Auto) (0.3 - 3.7 %) 7.9 H Baso % (Auto) (0.0 - 2.0 %) 0.7 Neut # (Auto) (2.0 - 7.6 x10 3/uL) 8.15 H Lymph # (Auto) (1.0 - 3.8 x10 3/uL) 1.05 [place] # (Auto) (0.1 - 0.8 x10 3/uL) 0.91 H Eos # (Auto) (0.0 - 0.2 x10 3/uL) 0.89 H Baso # (Auto) (0.0 - 0.2 x10 3/uL) 0.08 Abs Immat Gran (auto) (0.00 - 0.03 x10 3/uL) 0. 19 H Add Manual Diff NO Immature Gran % (0.0 - 2.0 %) 1.7 Nucleated RBC % (0 - 0 %) 0.0 Nucleated RBCs # (Man) (0.0 - 0.1 x10 3/uL) 0.0 0 Radiology data: Recent Impressions: RADIOLOGY - XR CHEST 1 V 07/19 0754 Report Impression - Status: SIGNED Entered: 07/19/2022 1126 IMPRESSION: Bibasilar consolidation has some improved aerati on bilaterally. Small bilateral pleural effusions. Mild atelecta sis about the left perihilar region. No other focal infiltrates wit hin the lungs. Left apical pleural thickening similar to prior study. Impression By: [email or web address] - Chaim Alonzo M.D. Treatment Prophylaxis Treatment Prophylaxis Drain(s)/tube(s): Drain(s)/tube(s): chest Diagnosis, Assessment Plan Free Text A P: Assessment: 1-CLAUDETTE likely from urinary retention. oliguric AK I now post op, and shock! 2- non-STEMI: multivessel disease w main left. 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 Waters catheter is in place. 4-severe bilateral hydronephrosis 5- shock : Cardiogenic resolved. 6-hyperlipidemia 7- AGMA resolved. Plan: - unknown Scr baseline. - Ultrasound showed severe bilateral hyd ronephrosis and medical renal disease. Continue Waters catheter. Urology consulted. - He underwent LHC on 07/03. - Started on HD on 07/04. - s/p CABG X5 on 07/08 -Adequate urine output volume after Lasix but no clearance. - stopped NaHCO3 as started on HD. -TDC placed 07/15. stble from nephrology for discharge to [facility] Consultants: cardiology, cardiovascular surgery, nephrology Electronically Signed by Jackie Wan MD on 07/19 at 1723 RPT #:[id number] END OF REPORT 2022-07-19 13:58:00-00:00 [facility]ACL [facility] ([facility] Cardiothoracic Surgery Prog REPORT#:[id number] REPORT STATUS: Signed DATE:07/19/22 TIME: 1358 PATIENT: SHERRI ARCE UNIT #: [id number] ROOM/BED: [facility] : 42 AGE: 81 SEX: M ATTEND: Srinath Kaur MD ADM AUTHOR: Rosalind Toribio * ALL edits or amendments must be made on the el [employer]/computer document * General Post-op: day 10 Status post: 07/08/22 CABG x 5 (MISTRY-LAD, SVG-Ladonna, SVG-OM1< SVG-OM3, S VG-PDA) ALAA EVH (RGSV) Subjective Chief complaint: s/p CABG no complaints Review of Systems Constitutional: Denies: chills, fever, malaise. Allergy/Immun: Denies: allergic reaction. Respiratory: Denies: SOB. Cardiovascular: Denies: chest pain, palpitations. GI: Denies: abdominal pain, nausea, vomiting. : Denies: dysuria, hematuria. Heme: Denies: bleeding. Neuro: Denies: dizziness, headache, vision change. All systems rev neg: except as marked Objective General VS/I O Last Documented: Result Date Time Pulse Ox 95 07/19 09 O2 Delivery Room air 07/19 09 B/P 119/79 07/19 827 B/P Mean 0.0 07/19 827 Temp 98.1 07/19 08 Pulse 91 07/19 08 Resp 20 07/19 08 FiO2 21 07/18 2058 O2 Flow Rate 3 07/14 1151 24 hour I O ending at 0700: 07/19 0700 07/18 1900 Intake Total 500 850.00 Output Total 700 1050 Balance -200 -200.00 Intake, 0 Hemodialysis Intake, IV 50.00 Intake, Oral 500 800 Output, Urine 700 1050 Patient 192 lb Weight Weight Standing scale Measurement Method PATIENT WEIGHT: Weight (lb): 191 Weight (oz): 9.31 Weight (kg): 86.900 Physical Exam General appearance: alert, oriented, pleasant, m ental status normal, no respiratory distress Wound/incision: Location: sternal Site condition: edges approximated, incision in tact HEENT: anicteric, mucosal membranes moist Neck: supple/no meningismus Cardiovascular: normal heart sounds, regular rat e rhythm Respiratory: aerating well, symmetric expansion, no distress Abdomen: soft, non-tender, no distention Genitourinary: no waters Extremities: moves all 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ALTH: alert, oriented X 3, normal speech, n o motor deficits Psychiatry: normal affect, normal mood Current Medications Medications: Active Meds + DC'd Last 24 Hrs Midodrine (PROAMATINE) 5 MG 0900,1300,1700 PRN P O Sodium Chloride (SODIUM CHLORIDE) 10 ML ASDIR I V Amiodarone HCl (CORDARONE) 200 MG BID PO Ipratropium Kersey (ATROVENT) 500 MCG RTQ2H PRN PRN INH Lactulose (LACTULOSE) 20 GM DAILY PRN PRN PO Cyanocobalamin (Vitamin B-12 500 mcg tab) 500 MC G DAILY PO Ferrous Sulfate (FERROUS SULFATE) 325 MG DAILY P O Bisacodyl (DULCOLAX) 10 MG ONCE PRN RECTAL Atorvastatin Calcium (LIPITOR) 40 MG 2100 PO Clopidogrel Bisulfate (Plavix) 75 MG DAILY PO Polyethylene Glycol (MIRALAX) 17 GM DAILY PO Pantoprazole (PROTONIX) 40 MG DAILY@0600 PO Aspirin (ASPIRIN) 81 MG DAILY PO Docusate Sodium (COLACE) 100 MG BID PO Sennosides (Senna Lax 8.6 MG TABLET) 17.2 MG BED TIME PO Ipratropium Kersey (ATROVENT) 500 MCG RTQ4H INH Acetaminophen (TYLENOL) 650 MG Q4H PRN PRN PO Acetaminophen (TYLENOL) 650 MG Q4H PRN PRN RECTA L Dextrose/Water (DEXTROSE 10% IN WATER) 125 ML DIR PRN IV (CKD) Dextrose/Water (DEXTROSE 10% IN WATER) 250 ML DIR PRN IV (CKD) Glucagon (GLUCAGON) 1 MG ASDIR PRN IM Magnesium Sulfate (MAGNESIUM SULFATE 4GM/SWFI 10 0ML) 100 ML ASDIR PRN IV Magnesium Sulfate (MAGNESIUM SULFATE 2GM/SWFI 50 ML) 50 ML ASDIR PRN IV Magnesium Sulfate/Dextrose (MAGNESIUM SULFATE 1G M/D5W 100ML) 100 ML ASDIR PRN IV Ondansetron HCl (ZOFRAN) 4 MG Q6H PRN PRN IV Albumin Human (ALBUMINAR-25%) 12.5 GM ASDIR PRN IV Heparin Sodium (Porcine) (HEPARIN SODIUM) 3,000 UNIT ASDIR PRN DIALYSIS Lidocaine HCl (LIDOCAINE HCL/PF) 0.5 ML ASDIR NV N I-DERMAL (CKD) Mannitol (Mannitol 20%) 12.5 GM ASDIR PRN IV Sodium Chloride (SODIUM CHLORIDE 0.9%) 2,000 ML ASDIR PRN IV Tamsulosin HCl (Flomax 0.4 mg) 0.4 MG BEDTIME PO Results Findings/Data: Laboratory Tests 07/1915 0515 Chemistry Sodium (134 - 147 mEq/L) 141 Potassium (3.4 - 5.0 mEq/L) 4.0 Chloride (100 - 108 mEq/L) 106 Carbon Dioxide (21 - 33 mEq/l) 26 Anion Gap (0 - 20) 13 BUN (7 - 18 mg/dL) 31 H Creatinine (0.6 - 1.3 mg/dL) 3.2 H Glomerular Filtr Rate (70 - 80) 19.0 L Glucose (70 - 110 mg/dL) 91 Calcium (8.0 - 10.5 mg/dL) 8.0 Magnesium (1.80 - 2.40 mg/dL) 2.12 Laboratory Tests 07/19 0515 Hematology WBC (4.5 - 11.0 x10 3/uL) 11.3 H RBC (4.00 - 5.60 x10 6/uL) 2.74 L Hgb (12.5 - 16.9 g/dL) 8.1 L Hct (37.5 - 50.7 %) 25.7 L MCV (81.0 - 99.0 fL) 93.8 MCH (27.0 - 33.0 pg) 29.6 MCHC (33.0 - 37.0 g/dL) 31.5 L RDW (11.5 - 14.5 %) 16.1 H Plt Count (150 - 400 x10 3/uL) 365 MPV (7.0 - 9.0 fL) 10.2 H Neut % (Auto) (56.0 - 77.0 %) 72.3 Lymph % (Auto) (14.0 - 32.0 %) 9.3 L [place] % (Auto) (4.8 - 9.0 %) 8.1 Eos % (Auto) (0.3 - 3.7 %) 7.9 H Baso % (Auto) (0.0 - 2.0 %) 0.7 Neut # (Auto) (2.0 - 7.6 x10 3/uL) 8.15 H Lymph # (Auto) (1.0 - 3.8 x10 3/uL) 1.05 [place] # (Auto) (0.1 - 0.8 x10 3/uL) 0.91 H Eos # (Auto) (0.0 - 0.2 x10 3/uL) 0.89 H Baso # (Auto) (0.0 - 0.2 x10 3/uL) 0.08 Abs Immat Gran (auto) (0.00 - 0.03 x10 3/uL) 0. 19 H Add Manual Diff NO Immature Gran % (0.0 - 2.0 %) 1.7 Nucleated RBC % (0 - 0 %) 0.0 Nucleated RBCs # (Man) (0.0 - 0.1 x10 3/uL) 0. 00 Radiology data: Recent Impressions: RADIOLOGY - XR CHEST 1 V 07/19 0754 Report Impression - Status: SIGNED Entered: 07/19/2022 1126 IMPRESSION: Bibasilar consolidation has some improved aerati on bilaterally. Small bilateral pleural effusions. Mild atelecta sis about the left perihilar region. No other focal infiltrates wit hin the lungs. Left apical pleural thickening similar to prior study. Impression By: Margot - Chaim Alonzo M.D. Treatment Prophylaxis Treatment Prophylaxis Drain(s)/tube(s): Drain(s)/tube(s): chest Quality: Trauma Gen Surg Advanced Care Plan 65 or Older Discussed with: patient Discussion included: living will (none), power of employment law attorney (none), code status ( full code) Diagnosis, Assessment Plan Hospital course to date: This is a 81-year-old gentleman who presented to an outside hospital with complaints of chest pains while walking at his home on Thursday. He denies any previous history of coronary artery disease or o ther NE. He was seen and evaluated at [facility]. He was found to have a urinary tract infection with urinary retention and acute kidne y. He was started on dialysis via a left femoral temporary catheter. He underw ent dialysis on Thursday, Thursday. Renal has been consulted During his work-up at outside hospital he underw ent Left heart catheterization showing sever e Left Main 70%. LAD: Proximal diffuse 80% stenosis and then diffuse 60% in the midsegment and on the distal segment, there is focal 70% stenosis. Diagonal branches w ith luminal irregularities. Left circumflex, codominant circulation with pro ximal 80%, mid 80 to 90% and then in the OM, there is proximal 60%, distal le ft circumflex has a 70% stenosis. RCA large and dominant with proximal 4 0% stenosis, mid 60% stenosis and then diffuse 50% stenosi s all the way distally and the PLV and the PDA with luminal irregularities. CV surgery consulted for evaluation for coronary bypass graft. CAROTIDS - No carotid stenosis CT chest complete IMPRESSION: Small bilateral pleural effusions with bibasila r atelectasis. Echo: 1. Left ventricle: The cavity size is at the upp er limits of normal. Wall thickness is mildly increased. Systolic fu nction is severely reduced. The estimated ejection fraction is 30- 34%. Moderate hypokinesis of the entire myocardium. Doppler parameters are consistent with abnormal left ventricular relax ation (grade 1 diastolic dysfunction). 2. Pericardium, extracardiac: A small pericardia l effusion is identified along the left ventricular free wall, along the right ventricular free wall, and along the right atrial free wall . Assessment/Plan 1) CAD Mutlivessel Will obtain echo,carotids. 2) CLAUDETTE Started dialysis on Creatine 7.3 Renal consulted. 3) BPH- Urinary retention. Waters in place Workup for CABG underway. Will get functional assessment with PT. PFT pending Carotid dopplers- No disease Echo Pending Dialyiss per Renal. Baseline Cr unknown. 07/04 07/04 Doing well today, alert, up in the chair. Denies chest pain Echocardiogram showed LVEF 30 to 34%, mild MR, t rivial TR CT chest images reviewed Encourage I-S and mobilization Creatinine 5.5 from 7.3, good urine output. Pao l US showed bilateral severe hydronephrosis. Plan for HD today and tomorrow Will tentatively schedule patient for surgery on Thursday. Patient seen and plan reviewed with Dr Schwarz 07/05 Remains in a stable condition, denies chest pain BUN 53, creatinine 5.4. Plan for hemodia lysis today and tomorrow for clearance He is also on Lasix 20 mg IV twice daily, urine output 1.1 L overnight We will calculate risk of surgery with STS score Encourage I-S and mobilization Will tentatively schedule patient for surgery on Thursday. Pt seen and plan reviewed with Dr Schwarz 07/06 BUN 36, creatinine 4.4. Plan for hemodialysis to day Awaiting CABG tomorrow Surgery, risks involved, STS score, benefits, co mplications and alternatives were explained to the patient. He acknow ledged understanding and is willing to proceed N.p.o. after midnight Patient seen and plan reviewed with Dr. Schwarz 07/09/22 POD 1 CABG x 5 (MISTRY-LAD, SVG-Ladonna, SVG-OM1< SVG-OM3, S VG-PDA), ALAA, EVH (RGSV) Patient hemodynamically unstable, on epi at 4, a nd vaso .04, decreased uop overnight- 150cc Started patient on CRRT 2k/3.5 Wean epi as tolerated, Cardiac incex 2.8-3 labs and chest x-ray reviewed, electroly marcie stable, hgb 6.5- transfuse 2 units PRBC On 4l nasal cannula- encourage incentive spirome ter and deep breathing Keep both chest tubes and monitor outputs Glycemic control on insulin drip Cardiac diet Bowel regimen protocol Pain management SCDs for DVT and PPI for GI prophylaxis PT/OT Monitor patient closely in CVICU Plan of care discussed with Dr. Schwarz 07/10/22 POD 2 Patient alert, awake, and oriented, no distres n oted labs and CXR reviewed stable Breathing comfortably on 3l nasal cannula- wean as tolerated to melissa O2 sats > 92 % Encourage I-S use and deep breathing On CRRT- able to remove 2.9L overnight- nephrolo gy following Cardiac index 3.1- wean off epi drip Keep chest tubes for now and monitor outputs Transition to sliding scale insulin- cardiac t Try to get patient out of bed to chair today- am bulate with PT/OT SCDs for DVT prophylaxis Keep patient in CVICU for close monitoring 07/11/22 POD 3 Patient in stable condition, overnight e vents noted- decreased urine output 35 ml last night-started on dopamine gtt for renal perfusion Cardiac index 3.5- epi currently at 2- will disc ontinue today, vasopressin at 0.02, added low dose midodrine 2.5 mg TID, repea t echocardiogram. Renal Following- trial Lasix Patient has Left femoral tem p dialysis cath, Will need tunneled dialysis IJ cath placed if need dialysis. On 5l nasal cannula- wean off as tolerat ed, encourage incentive spirometer and deep breathing Keep left pleural chest tube and monitor output- > 200 cc Tolerating diet, bowel regimen protocol PT/OT- patient out of bed to chair today- encour age ambulation DVT prophylaxis with SCDs Monitor patient closely in CVICU Plan discussed with multidisciplinary team Plan discussed with Dr Schwarz/ Dr Rodríguez 07/12/22 POD 5, Patient resting comfortable. Patient with hx of urinary r etention- After standing today- voided 1.4 L. Needs Urology consult for retention K 5.4- HD in progress. Dr Plaza following. CT output 20- DC today. Pacers remain in place. Patient has Left femoral tem p dialysis cath, Re-evaluate on Thursday if ocean transportation intermediary dialysis needed. Card: Remains in sinus rhythm. Respir: on 7 L NC O2 95% Dispo: Rehab consulted Patient seen and exmained by Dr Rodríguez. Plan discussed with Team 07/13/22 POD 5 Patient with no new complaints. Recieved HD yest erday. Requiring less oxygen, now on 3l nasal cannula- continue to wean off CXR reviewed left apical pne umothorax 4cm/30%, Chest tube drained 140 overnight, placed back on suction to clear pneumo, CT drianed 200cc th is AM. on suction. Labs reviewed- stable, decreased WBC, hgb stable , CR 3.9 Eating welll, +BM UO- 550CC, BP improved on midodrine. Continue PT/OT, ambulation and incentive spirome ter use Rehab folowing Monitor in ICU today Disucssed with Dr Schwarz- Adeola C femoral line and Central line today. DC art line. Will re-eval need for dialysis cath Thursday. Cons ider tunnelled cath if need. Patient seen and examined by Dr Rodríguez. Plan discussed with Care team. 07/14 POD 6 Patient in stable condition, no distress noted Remains on room air, O2 sats > 92%, encourage I- S use and deep breathing CXR shows moderate left apical pneumothorax unch anged CT remained on suction, no airleak no Consult IR for pigtail chest tube placement this morning Cardiac/renal diet Labs reviewed- K 5.1- repeat labs K 4.8 Nephrology following Continue therapy with PT/OT Follow up with urology for waters catheter- Dr Hunter carrera consulted. Monitor in CVICU Plan of care discussed with Dr Schwarz and multi disciplinary team 07/15/22 POD 7 Patient alert, awake, and oriented, no distress, no complaints at this time Breathing comfortable on room air CXR shows resolved pneumothorax LP and pigtail chest tube- no air leak noted, mi nimal output from LP 40 overnight Labs reviewed, K 5.2- corrected, follow up with nephrology to discuss need for dialysis Trend labs this afternoon Bowel regimen, +gas Waters catheter discontinued per urology- voiding trial this AM Ambulation and incentive spirometer use encourag ed DVT prophylaxis with SCDs Keep in ICU DISP: SNF- Case management Discussed plan of care with multidisciplinary david portillo and Dr. Schwarz 07/16/2022 POD 8 Patient doing well, alert, awake, and oriented O2 sats 93% on room air, encourage I-S CXR stable- no pneumo noted Left pigtail chest tube - no air leak, clamped t his morning, repeat CXR Placement of tunneled dialysis catheter (BioFlo DuraMax 28 cm) yesterday HD treatment done yesterday evening, plan for HD treatment today per nephrology Patient failed voiding trial, waters catheter rep laced- follow up with urology Eating well Continue PT/OT- ambulation Transfer to CV 1 intermediate care unit Discharge planning for SNF- CM following and to set up dialysis chair Patient seen with Dr. Allie louis and discussed plan of care with multidisciplinary team. 07/17/22 Patient in stable condition, no complaints Labs and CXR reviewed- stable Left pigtail chest tube discontinued yesterday- no pneumo noted Remains on room air, no distress- I-S encouraged Cardiac diet, +BM Keep waters per urology f/u outpt, continue floma x HD per nephrology- CM to setup outpt dialysis ch air Awaiting bed availability on CV 1 Discharge planning- SNF Plan of care discussed with multidisciplinary david portillo and Dr. Schwarz. 07/18 Patient in stable condition, no complaints Remains on room air, no distress- I-S encouraged Epicardial pacing wires discontinued. Limited ec ho to rule out pericardial effusion Keep waters per urology f/u outpt, continue floma x HD per nephrology- CM to setup outpt dialysis ch air Discharge planning- SNF Plan of care discussed with multidisciplinary te bandar and Dr. Schwarz. 07/19 No new events Echocardiogram done, report pending HD per nephrology- CM to setup outpt dialysis ch air [facility]ing [facility] approval [facility] Patient seen and plan reviewed with Dr. Schwarz Consultants: cardiology, cardiovascular surgery, nephrology at 1402 at 1939 RPT #:[id number] END OF REPORT 2022-07-19 12:15:00-00:00 [id number] [place] [id number] PATIENT NAME: SHERRI ARCE ADMIT DATE: 07/02/22 ACCOUNT NO: [id number] ROOM NO: [facility] AGE: 81 REPORT TYPE: eECHOCARDIOGRAM REPORT SEX: M ADMITTING PHYSICIAN:Srinath Kaur MD ATTENDING PHYSICIAN:Srinath Kaur MD *[place] [address] Limited Transthoracic Echocardiogram Patient: Sherri Arce Study Date: 07/18/2022 BP: 127 / 67 Location: [facility] URN: [id number] : 1940 Age: 81 Height: 72 in / 182.9 cm Gender: M Weight: 192 .6 lb / 87.5 kg BMI/BSA: 26.2 kg/m 2 / 2.1 m 2 *Ordering Physician: * Rosalind Toriboi *Interpreting Physician: * Liset Ennis MD *Computational Sciences Professor: * Ayanna Cruz Indications: POST CABG. Study data: Transthoracic echocardiogram, anae adeola study. Procedure: Transthoracic echocardiography was performed. Im age quality was adequate. Limited 2D and limited spectral Dopple r. Location: Bedside. Patient status: Inpatient. Patient room number: 3354. Study status: Routine. Findings Left ventricle: The cavity size is normal. Wall thickness is mildly increased. Systolic function is severely reduced . The estimated ejection fraction is 30-34%. Right ventricle: The cavity size is normal. Syst olic function is mildly reduced. Left atrium: The atrium is mildly dilated. PATIENT NAME: SHERRI ARCE Right atrium: The atrium is normal in size. Pericardium: A trivial pericardial effusion is i dentified. Measurements Left ventricle Value 07/11/2022 Ref AARTI, LAX 5.0 cm 5.1 4.2 - 5.8 ESD, LAX 4.4 cm 4.3 2.5 - 4.0 ESD/bsa, 2.1 cm/m 2 2.0 1.3 - 2.1 LAX FS, LAX 14 % 15 25 - 43 ESD/bsa 3.9 cm/m 2 3.8 --------- major ax, A4C AARTI/bsa 3.9 cm/m 2 3.8 --------- minor ax, A4C AARTI major 9.1 cm 9.0 --------- ax, A2C AARTI/bsa 4.3 cm/m 2 4.1 --------- major ax, A2C PW, ED 1.2 cm 1.1 0.6 - 1.0 IVS/PW, ED 0.98 1.06 --------- EF 29 % 31 52 - 72 LVOT Value 07/11/2022 Ref Diam, S 2.03 cm 2.00 --------- Area 3.2 cm 2 3.1 --------- Ventricular septum Value 07/11/2022 Ref IVS, ED 1.2 cm 1.2 0.6 - 1.0 Right ventricle Value 07/11/2022 Ref AARTI, LAX 2.5 cm --------- Left atrium Value 07/11/2022 Ref Vol/bsa, 26 ml/m 2 12 12 - 37 ES, 1-p A4C Vol, ES, 78 ml --------- 2-p Vol/bsa, 37 ml/m 2 16 - 34 ES, 2-p Vol/bsa, 30 ml/m 2 14 16 - 34 ES, A/L AP dim, ES 4.1 cm 3.0 - 4.0 MM LA/Ao root 1.25 --------- ratio, MM Aortic valve Value 07/11/2022 Ref Leaflet 1.96 cm --------- sep, MM PATIENT NAME: SHERRI ARCE Mitral valve Value 07/11/2022 Ref E-septal 2.6 cm --------- separation E-F slope 0.08 m/sec --------- Aortic root Value 07/11/2022 Ref Root diam, 3.31 cm --------- ED MM Conclusions Summary: 1. Left ventricle: The cavity size is normal. Wa ll thickness is mildly increased. Systolic function is severely reduce d. The estimated ejection fraction is 30-34%. 2. Right ventricle: Systolic function is mildly reduced. 3. Left atrium: The atrium is mildly dilated. 4. Pericardium, extracardiac: A trivial pericard ial effusion is identified. Prepared and electronically signed by Liset Ennis MD 07/19/2022 12:14 Electronically Signed by Liset Ennis MD on 0 07/19/22 at 1215 PATIENT NAME: SHERRI ARCE 2022-07-19 12:00:00-00:00 [facility]L [facility] Hospitalist Progress Note REPORT#:[id number] REPORT STATUS: Signed DATE:07/19/22 TIME: 1200 PATIENT: SHERRI ARCE UNIT #: [id number] ROOM/BED: [place] [id number] : 42 AGE: 81 SEX: M ATTEND: Srinath Kaur MD ADM AUTHOR: Srinath Kaur MD * ALL edits or amendments must be made on the [email or web address] document * Subjective Chief complaint: SLEEPING NOW HPI: 81 y/o man with PMHx of HTN, Dyslipidemia [facility] with chest pain and found to have a NSTEMI and also acute renal failure. Underwent cardiac c ath yesterday and found to have severe CAD including left main disease. Transfer here f or CABG evaluation. He also underwent HD Thursday and Thursday of this week. HD catheter was place at [facility]. Currently not having any chest pain. Had chest pain with SOB when he presentted to the previous hospital. Objective General VS/I O: Vital Signs: Date Time Temp Pulse Resp B/P B/P Pulse O2 O2 F low FiO2 Mean Ox Delivery Rate 07/19 0903 95 Room air 07/19 0828 98.1 91 20 119/79 0.0 98 07/19 0600 93 23 98/55 71 92 07/19 0500 85 33 111/58 77 92 07/19 0400 84 29 112/55 78 94 07/19 0354 98.4 85 14 112/61 77.7 89 Room air 07/19 0300 83 31 113/55 78 91 07/19 0200 82 28 103/55 74 93 07/19 0100 84 29 114/55 79 91 07/19 0050 98.2 85 16 116/64 81.2 91 Room air 07/19 0000 87 31 113/63 81 92 07/18 2300 87 29 120/60 84 92 07/18 2117 99.5 86 14 122/66 84.6 92 Room air 07/18 2058 98 Room air 21 07/18 1337 97.9 83 16 127/67 0.0 96 07/18 1300 98.1 81 20 128/67 95 Room air 24 hour I O ending at 0700: 07/19 0700 07/18 1900 Intake Total 500 850.00 Output Total 700 1050 Balance -200 -200.00 Intake, 0 Hemodialysis Intake, IV 50.00 Intake, Oral 500 800 Output, Urine 700 1050 Patient 192 lb Weight Weight Standing scale Measurement Method PATIENT WEIGHT: Weight (lb): 191 Weight (oz): 9.31 Weight (kg): 86.900 Medications: Active Meds + DC'd Last 24 Hrs Midodrine (PROAMATINE) 5 MG 0900,1300,1700 PRN P O Sodium Chloride (SODIUM CHLORIDE) 10 ML ASDIR IV Amiodarone HCl (CORDARONE) 200 MG BID PO Ipratropium Kersey (ATROVENT) 500 MCG RTQ2H PRN PRN INH Lactulose (LACTULOSE) 20 GM DAILY PRN PRN PO Cyanocobalamin (Vitamin B-12 500 mcg tab) 500 MC G DAILY PO Ferrous Sulfate (FERROUS SULFATE) 325 MG DAILY P O Bisacodyl (DULCOLAX) 10 MG ONCE PRN RECTAL Atorvastatin Calcium (LIPITOR) 40 MG 2100 PO Clopidogrel Bisulfate (Plavix) 75 MG DAILY PO Polyethylene Glycol (MIRALAX) 17 GM DAILY PO Pantoprazole (PROTONIX) 40 MG DAILY@0600 PO Aspirin (ASPIRIN) 81 MG DAILY PO Docusate Sodium (COLACE) 100 MG BID PO Sennosides (Senna Lax 8.6 MG TABLET) 17.2 MG BED TIME PO Ipratropium Kersey (ATROVENT) 500 MCG RTQ4H INH Acetaminophen (TYLENOL) 650 MG Q4H PRN PRN PO Acetaminophen (TYLENOL) 650 MG Q4H PRN PRN RECTA L Dextrose/Water (DEXTROSE 10% IN WATER) 125 ML DIR PRN IV (CKD) Dextrose/Water (DEXTROSE 10% IN WATER) 250 ML DIR PRN IV (CKD) Glucagon (GLUCAGON) 1 MG ASDIR PRN IM Magnesium Sulfate (MAGNESIUM SULFATE 4GM/SWFI 10 0ML) 100 ML ASDIR PRN IV Magnesium Sulfate (MAGNESIUM SULFATE 2GM/SWFI 50 ML) 50 ML ASDIR PRN IV Magnesium Sulfate/Dextrose (MAGNESIUM SULFATE 1G M/D5W 100ML) 100 ML ASDIR PRN IV Ondansetron HCl (ZOFRAN) 4 MG Q6H PRN PRN IV Albumin Human (ALBUMINAR-25%) 12.5 GM ASDIR PRN IV Heparin Sodium (Porcine) (HEPARIN SODIUM) 3,000 UNIT ASDIR PRN DIALYSIS Lidocaine HCl (LIDOCAINE HCL/PF) 0.5 ML ASDIR NV N I-DERMAL (CKD) Mannitol (Mannitol 20%) 12.5 GM ASDIR PRN IV Sodium Chloride (SODIUM CHLORIDE 0.9%) 2,000 ML ASDIR PRN IV Tamsulosin HCl (Flomax 0.4 mg) 0.4 MG BEDTIME PO Physical Exam General appearance: chronically ill appearing, f rail, sleeping comfortably Neck: no JVD Cardiovascular: normal heart sounds, regular rat e rhythm Respiratory: aerating well, clear to auscultatio n, symmetric expansion, no distress Abdomen: non-tender, normal bowel sounds , soft, no distention, no guarding, no rebound Extremities: no edema Musculoskeletal: normal inspection 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[employer]: normal speech, no motor deficits, no sensory deficits Skin: intact, normal color, no rash Psychiatry: normal affect Results Findings/Data: Laboratory Tests 07/1915 0515 1331 Chemistry Sodium (134 - 147 mEq/L) 141 Potassium (3.4 - 5.0 mEq/L) 4.0 Chloride (100 - 108 mEq/L) 106 Carbon Dioxide (21 - 33 mEq/l) 26 Anion Gap (0 - 20) 13 BUN (7 - 18 mg/dL) 31 H Creatinine (0.6 - 1.3 mg/dL) 3.2 H Glomerular Filtr Rate (70 - 80) 19.0 L Glucose (70 - 110 mg/dL) 91 POC Glucose (70 - 110 MG/DL) 85 Calcium (8.0 - 10.5 mg/dL) 8.0 Magnesium (1.80 - 2.40 mg/dL) 2.12 Laboratory Tests 07/19 0415 Hematology WBC (4.5 - 11.0 x10 3/uL) 11.3 H RBC (4.00 - 5.60 x10 6/uL) 2.74 L Hgb (12.5 - 16.9 g/dL) 8.1 L Hct (37.5 - 50.7 %) 25.7 L MCV (81.0 - 99.0 fL) 93.8 MCH (27.0 - 33.0 pg) 29.6 MCHC (33.0 - 37.0 g/dL) 31.5 L RDW (11.5 - 14.5 %) 16.1 H Plt Count (150 - 400 x10 3/uL) 365 MPV (7.0 - 9.0 fL) 10.2 H Neut % (Auto) (56.0 - 77.0 %) 72.3 Lymph % (Auto) (14.0 - 32.0 %) 9.3 L [place] % (Auto) (4.8 - 9.0 %) 8.1 Eos % (Auto) (0.3 - 3.7 %) 7.9 H Baso % (Auto) (0.0 - 2.0 %) 0.7 Neut # (Auto) (2.0 - 7.6 x10 3/uL) 8.15 H Lymph # (Auto) (1.0 - 3.8 x10 3/uL) 1.05 [place] # (Auto) (0.1 - 0.8 x10 3/uL) 0.91 H Eos # (Auto) (0.0 - 0.2 x10 3/uL) 0.89 H Baso # (Auto) (0.0 - 0.2 x10 3/uL) 0.08 Abs Immat Gran (auto) (0.00 - 0.03 x10 3/uL) 0. 19 H Add Manual Diff NO Immature Gran % (0.0 - 2.0 %) 1.7 Nucleated RBC % (0 - 0 %) 0.0 Nucleated RBCs # (Man) (0.0 - 0.1 x10 3/uL) 0.0 0 Radiology data: Recent Impressions: RADIOLOGY - XR CHEST 1 V 07/19 5174 Report Impression - Status: SIGNED Entered: 07/19/2022 1126 IMPRESSION: Bibasilar consolidation has some improved aerati on bilaterally. Small bilateral pleural effusions. Mild atelecta sis about the left perihilar region. No other focal infiltrates wit hin the lungs. Left apical pleural thickening similar to prior study. Impression By: [email or web address] - Chaim Alonzo M.D. Diagnosis, Assessment Plan Consultants: cardiology, cardiovascular surgery, nephrology Free Text DxA P Notes Free text DxA P notes: NSTEMI, CAD (coronary artery disease), S/P CABG X 5 ON 07/08- STABLE, CARD/CTS SEEN, TX TO SNF SOON, EF 30-35% patient presented with NSTEMI and found to hve severe CAD. Cardiac cath shows: Left Main - Distal 70% LAD - Proximal 80% with another 60% and 70% les sions Cir - Proximal 80%,mid 80-90%, Distal 70% and O M 60% RCA - large dominant with proximal 40%, Mid 60% . Echo: ef 30-34%, mod hypokinesis of entire myoc ardium, grade 1 diastolic dysfunction Patient on ASA, plavix, BB and Statin on amiodarone, Beta-tomas as tolerated for lo w BP, Acute systolic heart failure - STABLE, NO CHARLY/BB DUE TO LOW BP, ON MIDODRINE PRN , EF 30-35% Echocardiac with estimated LVEF of 30 to 34% wi grade 1 diastolic dysfunction -s/p Lasix 20 mg twice daily 07/05 -on metoprolol 12.5 mg bid on hold now, BP low -no ACEI/ spironolactione for CLAUDETTE -Start GDMT prior to discharge CLAUDETTE (acute kidney injury) DUE TO POST-OBS NEPHRO REMY - ON HD PRN, RENAL/UROL SEEN, NEEDS SNF WITH DIALYSIS ACCESS, CONT WATERS , FLOMAX, CAP SEWER FROM 7.0 TO 4.3 NOW No prior Hx of renal disease. hx of BPH and casimiro ated with Fosamax w/o improvement nd continue to h ave difficulty urinating. On admission was found to be on acute renal filaure and had received HD tw ice prior to arrival here ( thursday and thursday). Creatinine this am was 7.4, BUN 68 * Probably due to obstructive uropathy * waters already in place * Nephrology consuled for HD Anemia OF CD AND SURGICAL BLOOD LOSS - STABLE -Hemoglobin dropped to 6.5 s/p CABG 2 PRBC BT ordered 07/09 HTN (hypertension) - patient on metoprolol 12.5 mg BID, will adjust as needed On labetalol/hydralazine as needed Dyslipidemia on Lipitor 40mg po daliy. BPH (benign prostatic hyperplasia) - ABOVE, O N WATERS Started on Flomax at the previous hospital, thais l continue with it. Waters catheter in place, continue Waters cathete r as per nephrology 07/05 Goiter Hx of Goiter and surgical resection. TSH 3.33, within normal limits. Patient is not on Thyroid medication. anemia of chronic kidney disease Hemoglobin 8.3, monitor DEBILITY - OT/PT SEEN, SNF TX SOON UTI continue Rocephin for empiric treatment pend ing results of urine culture No growth for 48 hours DVT prophylaxis: Heparin 5000 units every 8 hour s Diet: Cardiac diet CODE STATUS: Full code Disposition: Status post CABG x5 on 07/09, hemodia lysis as per nephrology. Worked with PT in his room, on 2 L oxygen via na cj cannula. PT/OT on board. Rehab consulted. Transfer to floor. Quality: Gen Med Crit Care VTE Prophylaxis VTE prophylaxis initiated: yes Electronically Signed by Srinath Kaur MD on 07/19 at 1203 RPT #:[id number] END OF REPORT 2022-07-19 10:01:00-00:00 [facility] ([facility]) Cardiology Progress Note REPORT#:[id number] REPORT STATUS: Signed DATE:07/19/22 TIME: 1001 PATIENT: SHERRI ARCE UNIT #: [id number] ROOM/BED: [place] [address] : 42 AGE: 81 SEX: M ATTEND: Srinath Kaur MD ADM AUTHOR: Sonya Stacy CNP * ALL edits or amendments must be made on the [email or web address] document * Subjective Patient reports: No: complaints. Objective General VS/I O: 24 hour I O ending at 0700: 07/19 0700 07/18 1900 Intake Total 500 850.00 Output Total 700 1050 Balance -200 -200.00 Intake, 0 Hemodialysis Intake, IV 50.00 Intake, Oral 500 800 Output, Urine 700 1050 Patient 86.9 kg Weight Weight Standing scale Measurement Method Vital Signs: Date Time Temp Pulse Resp B/P B/P Pulse O2 O2 F low FiO2 Mean Ox Delivery Rate 07/19 0828 36.7 91 20 119/79 0.0 98 07/19 0600 93 23 98/55 71 92 07/19 0500 85 33 111/58 77 92 07/19 0400 84 29 112/55 78 94 07/19 0354 36.9 85 14 112/61 77.7 89 Room air 07/19 0300 83 31 113/55 78 91 07/19 0200 82 28 103/55 74 93 07/19 0100 84 29 114/55 79 91 07/19 0050 36.8 85 16 116/64 81.2 91 Room air 07/19 0000 87 31 113/63 81 92 07/18 2300 87 29 120/60 84 92 07/18 2117 37.5 86 14 122/66 84.6 92 Room air 07/18 2058 98 Room air 21 07/18 1337 36.6 83 16 127/67 0.0 96 07/18 1300 36.7 81 20 128/67 95 Room air 07/18 1134 95 Room air PATIENT WEIGHT: Weight (lb): 191 Weight (oz): 9.31 Weight (kg): 86.900 Medications: Active Meds + DC'd Last 24 Hrs Midodrine (PROAMATINE) 5 MG 0900,1300,1700 PRN P O Sodium Chloride (SODIUM CHLORIDE) 10 ML ASDIR IV Amiodarone HCl (CORDARONE) 200 MG BID PO Ipratropium Kersey (ATROVENT) 500 MCG RTQ2H PRN PRN INH Lactulose (LACTULOSE) 20 GM DAILY PRN PRN PO Cyanocobalamin (Vitamin B-12 500 mcg tab) 500 M CG DAILY PO Ferrous Sulfate (FERROUS SULFATE) 325 MG DAILY P O Bisacodyl (DULCOLAX) 10 MG ONCE PRN RECTAL Atorvastatin Calcium (LIPITOR) 40 MG 2100 PO Clopidogrel Bisulfate (Plavix) 75 MG DAILY PO Polyethylene Glycol (MIRALAX) 17 GM DAILY PO Pantoprazole (PROTONIX) 40 MG DAILY@0600 PO Aspirin (ASPIRIN) 81 MG DAILY PO Docusate Sodium (COLACE) 100 MG BID PO Sennosides (Senna Lax 8.6 MG TABLET) 17.2 MG BED TIME PO Ipratropium Kersey (ATROVENT) 500 MCG RTQ4H INH Acetaminophen (TYLENOL) 650 MG Q4H PRN PRN PO Acetaminophen (TYLENOL) 650 MG Q4H PRN PRN RECTA L Dextrose/Water (DEXTROSE 10% IN WATER) 125 ML DIR PRN IV (CKD) Dextrose/Water (DEXTROSE 10% IN WATER) 250 ML DIR PRN IV (CKD) Glucagon (GLUCAGON) 1 MG ASDIR PRN IM Magnesium Sulfate (MAGNESIUM SULFATE 4GM/SWFI 10 0ML) 100 ML ASDIR PRN IV Magnesium Sulfate (MAGNESIUM SULFATE 2GM/SWFI 50 ML) 50 ML ASDIR PRN IV Magnesium Sulfate/Dextrose (MAGNESIUM SULFATE 1G M/D5W 100ML) 100 ML ASDIR PRN IV Ondansetron HCl (ZOFRAN) 4 MG Q6H PRN PRN IV Albumin Human (ALBUMINAR-25%) 12.5 GM ASDIR PRN IV Heparin Sodium (Porcine) (HEPARIN SODIUM) 3,000 UNIT ASDIR PRN DIALYSIS Lidocaine HCl (LIDOCAINE HCL/PF) 0.5 ML ASDIR NV N I-DERMAL (CKD) Mannitol (Mannitol 20%) 12.5 GM ASDIR PRN IV Sodium Chloride (SODIUM CHLORIDE 0.9%) 2,000 ML ASDIR PRN IV Tamsulosin HCl (Flomax 0.4 mg) 0.4 MG BEDTIME PO Status post: 07/08/22 CABG x 5 (MISTRY-LAD, SVG-Ladonna, SVG-OM1< SV G-OM3, SVG-PDA) ALAA Physical Exam General appearance: alert, awake Head/Eyes: atraumatic ENT: moist mucosal membranes Neck: no JVD Cardiovascular: CV assessment: pedal edema, regular rate and rh ythm, no murmur Respiratory: decreased breath sounds, no distres s Abdomen: soft, non-tender, normal bowel sounds, no distention, no guarding Upper extremity: UE assessment: normal temperature, no edema Lower extremity: LE assessment: edema (2 to 3+ pitting edema), n ormal temperature, no edema Musculoskeletal: normal inspection 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[employer]: alert, oriented X 3, normal speech Skin: dry Psychiatry: normal affect Results Findings/Data: Laboratory Tests 07/19 07/19 07/18 0515 0515 1331 Chemistry Sodium (134 - 147 mEq/L) 141 Potassium (3.4 - 5.0 mEq/L) 4.0 Chloride (100 - 108 mEq/L) 106 Carbon Dioxide (21 - 33 mEq/l) 26 Anion Gap (0 - 20) 13 BUN (7 - 18 mg/dL) 31 H Creatinine (0.6 - 1.3 mg/dL) 3.2 H Glomerular Filtr Rate (70 - 80) 19.0 L Glucose (70 - 110 mg/dL) 91 POC Glucose (70 - 110 MG/DL) 85 Calcium (8.0 - 10.5 mg/dL) 8.0 Magnesium (1.80 - 2.40 mg/dL) 2.12 Laboratory Tests 07/19 0515 Hematology WBC (4.5 - 11.0 x10 3/uL) 11.3 H RBC (4.00 - 5.60 x10 6/uL) 2.74 L Hgb (12.5 - 16.9 g/dL) 8.1 L Hct (37.5 - 50.7 %) 25.7 L MCV (81.0 - 99.0 fL) 93.8 MCH (27.0 - 33.0 pg) 29.6 MCHC (33.0 - 37.0 g/dL) 31.5 L RDW (11.5 - 14.5 %) 16.1 H Plt Count (150 - 400 x10 3/uL) 365 MPV (7.0 - 9.0 fL) 10.2 H Neut % (Auto) (56.0 - 77.0 %) 72.3 Lymph % (Auto) (14.0 - 32.0 %) 9.3 L [place] % (Auto) (4.8 - 9.0 %) 8.1 Eos % (Auto) (0.3 - 3.7 %) 7.9 H Baso % (Auto) (0.0 - 2.0 %) 0.7 Neut # (Auto) (2.0 - 7.6 x10 3/uL) 8.15 H Lymph # (Auto) (1.0 - 3.8 x10 3/uL) 1.05 [place] # (Auto) (0.1 - 0.8 x10 3/uL) 0.91 H Eos # (Auto) (0.0 - 0.2 x10 3/uL) 0.89 H Baso # (Auto) (0.0 - 0.2 x10 3/uL) 0.08 Abs Immat Gran (auto) (0.00 - 0.03 x10 3/uL) 0 .19 H Add Manual Diff NO Immature Gran % (0.0 - 2.0 %) 1.7 Nucleated RBC % (0 - 0 %) 0.0 Nucleated RBCs # (Man) (0.0 - 0.1 x10 3/uL) 0.0 0 Laboratory Tests 07/19 0515 Chemistry Magnesium (1.80 - 2.40 mg/dL) 2.12 Radiology data: Recent Impressions: RADIOLOGY - XR CHEST 1 V 07/19 0754 Report Impression - Status: SIGNED Entered: 07/19/2022 1126 IMPRESSION: Bibasilar consolidation has some improved aerati on bilaterally. Small bilateral pleural effusions. Mild atelecta sis about the left perihilar region. No other focal infiltrates wit hin the lungs. Left apical pleural thickening similar to prior study. Impression By: Margot - Chaim Alonzo M.D. Results: labs reviewed, vital signs reviewed, [facility] personally rev'd Telemetry Interpretation: sinus rhythm Diagnosis, Assessment Plan Problem List/A P: 1. HTN (hypertension) 2. CLAUDETTE (acute kidney injury) 3. CAD (coronary artery disease) 4. Dyslipidemia 5. BPH (benign prostatic hyperplasia) Plan discussed with: patient, nurse Free Text DxA P Notes Free Text DxA P Notes: Mr. Arce is a pleasant 81 y/o M w/ PMHx: HTN, HLD presented to [facility] on 06/28/22 for chest pa in and sob. He was diagnosed NSTEMI. LHC showed multivessel CAD. Transferred to [facility] for CABG. 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 - CLAUDETTE - per nephrology likely from obstructive uropathy Renal ultrasound showed severe thickening of th e bladder, cholelitiasis. urology consulted for bladded outlet obstructio n and hydronephrosis, started on Flomax HD per nephro - HTN. bp stable, midodrine as needed - HLD. On statins. - Anemia. monitor Doing well VS stable SNF pending at 1610 Electronically Signed by Liset Ennis MD on at 0754 RPT #:[id number] END OF REPORT 2022-07-19 07:02:00-00:00 [facility] ([facility]) Rehab Progress Note REPORT#:[id number] REPORT STATUS: Signed DATE:07/19/22 TIME: 0702 PATIENT: SHERRI ARCE UNIT #: [id number] ROOM/BED: [place] [address] : 42 AGE: 81 SEX: M ATTEND: Srinath Kaur MD ADM AUTHOR: Magdaleno Washburn * ALL edits or amendments must be made on the [email or web address] document * Subjective Chief complaint: Rehab follow-up Doing well. States feeling better every day Denies pain or sob Pleasant Denies NAIK/N/V/D/CP 14 systems reviewed and neg. except that above. Objective General VS: Vital Signs: Date Time Temp Pulse Resp B/P B/P Pulse O2 O2 F low FiO2 Mean Ox Delivery Rate 07/19 0600 93 23 98/55 71 92 07/19 0500 85 33 111/58 77 92 07/19 0400 84 29 112/55 78 94 07/19 0354 98.4 85 14 112/61 77.7 89 Room air 07/19 0300 83 31 113/55 78 91 07/19 0200 82 28 103/55 74 93 07/19 0100 84 29 114/55 79 91 07/19 0050 98.2 85 16 116/64 81.2 91 Room air 07/19 0000 87 31 113/63 81 92 07/18 2300 87 29 120/60 84 92 07/18 2117 99.5 86 14 122/66 84.6 92 Room air 07/18 2058 98 Room air 21 07/18 1337 97.9 83 16 127/67 0.0 96 07/18 1300 98.1 81 20 128/67 95 Room air 07/18 1134 95 Room air PATIENT WEIGHT: Weight (lb): 191 Weight (oz): 9.31 Weight (kg): 86.900 Medications: Active Meds + DC'd Last 24 Hrs Midodrine (PROAMATINE) 5 MG 0900,1300,1700 PRN P O Sodium Chloride (SODIUM CHLORIDE) 10 ML ASDIR IV Amiodarone HCl (CORDARONE) 200 MG BID PO Ipratropium Kersey (ATROVENT) 500 MCG RTQ2H PRN PRN INH Lactulose (LACTULOSE) 20 GM DAILY PRN PRN PO Cyanocobalamin (Vitamin B-12 500 mcg tab) 500 MC G DAILY PO Ferrous Sulfate (FERROUS SULFATE) 325 MG DAILY P O Bisacodyl (DULCOLAX) 10 MG ONCE PRN RECTAL Atorvastatin Calcium (LIPITOR) 40 MG 2100 PO Clopidogrel Bisulfate (Plavix) 75 MG DAILY PO Polyethylene Glycol (MIRALAX) 17 GM DAILY PO Pantoprazole (PROTONIX) 40 MG DAILY@0600 PO Aspirin (ASPIRIN) 81 MG DAILY PO Docusate Sodium (COLACE) 100 MG BID PO Sennosides (Senna Lax 8.6 MG TABLET) 17.2 MG BED TIME PO Ipratropium Kersey (ATROVENT) 500 MCG RTQ4H INH Acetaminophen (TYLENOL) 650 MG Q4H PRN PRN PO Acetaminophen (TYLENOL) 650 MG Q4H PRN PRN RECTA L Dextrose/Water (DEXTROSE 10% IN WATER) 125 ML DIR PRN IV (CKD) Dextrose/Water (DEXTROSE 10% IN WATER) 250 ML DIR PRN IV (CKD) Glucagon (GLUCAGON) 1 MG ASDIR PRN IM Magnesium Sulfate (MAGNESIUM SULFATE 4GM/SWFI 10 0ML) 100 ML ASDIR PRN IV Magnesium Sulfate (MAGNESIUM SULFATE 2GM/SWFI 50 ML) 50 ML ASDIR PRN IV Magnesium Sulfate/Dextrose (MAGNESIUM SULFATE 1G M/D5W 100ML) 100 ML ASDIR PRN IV Ondansetron HCl (ZOFRAN) 4 MG Q6H PRN PRN IV Albumin Human (ALBUMINAR-25%) 12.5 GM ASDIR PRN IV Heparin Sodium (Porcine) (HEPARIN SODIUM) 3,000 UNIT ASDIR PRN DIALYSIS Lidocaine HCl (LIDOCAINE HCL/PF) 0.5 ML ASDIR NV N I-DERMAL (CKD) Mannitol (Mannitol 20%) 12.5 GM ASDIR PRN IV Sodium Chloride (SODIUM CHLORIDE 0.9%) 2,000 ML ASDIR PRN IV Tamsulosin HCl (Flomax 0.4 mg) 0.4 MG BEDTIME PO Functional Progress Functional progress: Weightbearing: STERNAL Ambulation Distance: 200FT X2 Progression: Forward Backward Lateral, Right Lateral, Left Assistance Level: Minimal Assistance Gait Deviations: SLOW Base of Support - Narrow Effects of Treatment: Cardio tolerance improved Function Improved Gait quality improved Post TX Precautions: In Chair Call Light in Reach Nursing Notified Telephone in reach Review Plan of Care: Yes PT charges: Gait Training [id number] Gait Cmt: PATIENT SEMI-RECLINED IN BED UPON ARR IVAL AND REPORTS OF NO PAIN AND AGREEABLE TO THERAPY. PATIENT EDUCATED ON STERNAL PRECAUTIONS REQUIRING CUES TO REDUCE USE OF ARMS DURING BED MOBILITY. PATIENT AMBULATED 200FT X2 WITH RW AND WC TO FOLLOW MIN A FOR STEADYING. PATIENT DID REQUIRE SEATED REST BREAK DUE TO SOB BUT O2 SAT WNL. PATIENT RETURNED BACK TO RECLINER AND LEFT WITH ALL NEEDS MET. RN NOTIFIED AND AWARE OF TREATMENT SESSION. If this is the patient's last treatment, this e ntry serves as the discharge summary: 075 Start Time: 749 Stop Time: 813 Treatment Time : ( minutes) 0:24 Completed by: Galindo Berry Conference/Supervising PT: Yes Supervising Therapist: Sincere Doran . BED MOBILITY: Yes Rolling Right/Left: Minimal Assistance Supine to Sit: Minimal Assistance Sit to Supine: Not Tested Scooting in bed: Minimal Assistance TRANSFERS: Yes Bed to/from chair: Minimal Assistance Sit to/from stand: Minimal Assistance Physical Exam General appearance: alert, awake Psych: alert, oriented x 3 HEENT: anicteric, sclera clear Neck: supple, no JVD Cardiovascular: regular rate rhythm, S1/S2 Respiratory: aerating well, clear bilaterally Abdomen: bowel sounds present, non-distended, so ft Skin: intact, no rash Musculoskeletal - general: Musculoskeletal - general: joints normal, meagan l muscle mass, normal tone 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ALTH: alert, oriented X 3, CNII-XII intact Results Findings/Data: Laboratory Tests 07/18 07/18 07/18 07/17 07/17 1331 0618 0618 [id number] 0320 Chemistry Sodium (134 - 147 mEq/L) 143 143 Potassium (3.4 - 5.0 mEq/L) 3.8 3.9 Chloride (100 - 108 mEq/L) 107 107 Carbon Dioxide (21 - 33 mEq/l) 25 29 Anion Gap (0 - 20) 15 11 BUN (7 - 18 mg/dL) 47 H 33 H Creatinine (0.6 - 1.3 mg/dL) 4.2 H 3.5 H Glomerular Filtr Rate (70 - 80) 13.7 L 17.0 L Glucose (70 - 110 mg/dL) 91 113 H POC Glucose (70 - 110 MG/DL) 85 Calcium (8.0 - 10.5 mg/dL) 8.7 8.2 Magnesium (1.80 - 2.40 mg/dL) 1.97 2.00 Laboratory Tests 07/18 07/17 0618 0320 Hematology WBC (4.5 - 11.0 x10 3/uL) 12.4 H 11.0 RBC (4.00 - 5.60 x10 6/uL) 2.84 L 2.81 L Hgb (12.5 - 16.9 g/dL) 8.3 L 8.3 L Hct (37.5 - 50.7 %) 26.9 L 26.6 L MCV (81.0 - 99.0 fL) 94.7 94.7 MCH (27.0 - 33.0 pg) 29.2 29.5 MCHC (33.0 - 37.0 g/dL) 30.9 L 31.2 L RDW (11.5 - 14.5 %) 15.9 H 16.1 H Plt Count (150 - 400 x10 3/uL) 363 321 MPV (7.0 - 9.0 fL) 10.1 H 10.1 H Neut % (Auto) (56.0 - 77.0 %) 73.2 71.6 Lymph % (Auto) (14.0 - 32.0 %) 8.5 L 7.2 L [place] % (Auto) (4.8 - 9.0 %) 8.8 11.0 H Eos % (Auto) (0.3 - 3.7 %) 7.2 H 6.8 H Baso % (Auto) (0.0 - 2.0 %) 0.6 0.6 Neut # (Auto) (2.0 - 7.6 x10 3/uL) 9.05 H 7.90 H Lymph # (Auto) (1.0 - 3.8 x10 3/uL) 1.05 0.80 L [place] # (Auto) (0.1 - 0.8 x10 3/uL) 1.09 H 1.21 H Eos # (Auto) (0.0 - 0.2 x10 3/uL) 0.89 H 0.75 H Baso # (Auto) (0.0 - 0.2 x10 3/uL) 0.08 0.07 Abs Immat Gran (auto) (0.00 - 0.03 x10 3/uL) 0. 21 H 0.31 H Add Manual Diff NO NO Immature Gran % (0.0 - 2.0 %) 1.7 2.8 H Nucleated RBC % (0 - 0 %) 0.0 0.0 Nucleated RBCs # (Man) (0.0 - 0.1 x10 3/uL) 0. 00 0.00 Recent Impressions: RADIOLOGY - XR CHEST 1 V 07/16 1055 Report Impression - Status: SIGNED Entered: 07/16/2022 1158 IMPRESSION: 1. Small left and stable small right layering pl eural effusion. 2. Left chest tube present. No pneumothorax. 3. Stable bibasilar airspace opacities Impression By: [email or web address] Yasmin Enriquez M.D . RADIOLOGY - XR CHEST 1 V 07/17 0554 Report Impression - Status: SIGNED Entered: 07/17/2022 0757 IMPRESSION: 1. Stable postoperative cardiomediastinal silhou ette. 2. Stable pulmonary opacities. 3. Stable pleural effusions. Pleural fluid/thick ening extending over the left apex. No pneumothorax following th oracostomy tube removal. Impression By: Robert Ratliff M.D. ULTRASOUND - DUP VEIN WOJCIECH 07/17 1519 Report Impression - Status: SIGNED Entered: 07/17/2022 1545 IMPRESSION: No evidence of deep vein thrombosis. Superficial thrombus in the right greater saphen ous vein. Complex hypoechoic area in the right inguinal re gion without internal vascular flow or peripheral hyperemia m easuring 4.2 x 1.4 x 2.3 cm which may represent a hematoma. Impression By: [email or web address] Yasmin Palma M.D. RADIOLOGY - XR CHEST 1 V 07/18 0559 Report Impression - Status: SIGNED Entered: 07/18/2022 0755 IMPRESSION: 1. Stable postoperative chest. 2. Stable pulmonary opacities likely combination of atelectasis and airspace disease. 3. Stable pleural effusions. Stable loculated le ft pleural fluid and or thickening extending to the apex. Impression By: Robert Ratliff M.D. Diagnosis, Assessment Plan Free Text A P: Non-STEMI Multivessel CAD S/p CABG x5 Physical deconditioning Impaired mobility and gait Postoperative anemia Dyslipidemia Hypertension CLAUDETTE Acute systolic heart failure Hemodynamic issues postop Leukocytosis trending down Pleural effusion and atelectasis Plan: Continue PT/OT Out of bed to chair Work on strength, bed mobility, transfers, gait Sternal precaution Increase endurance Fall precautions Monitor p.o. intake and nutrition Strict decubitus precautions Monitor anemia. Persistent left pneumothorax. IR guided pigtail place. CXR shows expansion of the lung Urology consulted -Pt on Flomax Nephrology managing renal issues and elevated K+ Utilize IS to reduce atelectasis Advance therapies as tolerated Pt lives alone and has 5 to 6 stairs to enter ho use SNF order has been placed. Will require insuranc e approval for SNF, dialysis clinic acceptance, approval for [facility] prior t o discharge Total time was 33 minutes > 50% with patient per forming physical examination, discussing plan of care, goals, therapies, progr ess, medications, labs, SNF. All questions answered Consultants: cardiology, cardiovascular surgery, nephrology Rehab attestation: . Electronically Signed by Magdaleno Washburn on 0 07/20/22 at 0520 RPT #:[id number] END OF REPORT 2022-07-18 16:17:00-00:00 [facility] Progress Note REPORT#:[id number] REPORT STATUS: Signed DATE:07/18/22 TIME: 1617 PATIENT: SHERRI ARCE UNIT #: [id number] ROOM/BED: [address] : 42 AGE: 81 SEX: M ATTEND: Srinath Kaur MD ADM AUTHOR: Evelina Plaza MD * ALL edits or amendments must be made on the [email or web address] document * Subjective Chief complaint: Feeling okay and has no complaints at this time. Objective General VS/I O: Vital Signs: Date Time Temp Pulse Resp B/P B/P Pulse O2 O2 F low FiO2 Mean Ox Delivery Rate 07/18 1337 97.9 83 16 127/67 0.0 96 07/18 1300 98.1 81 20 128/67 95 Room air 07/18 1134 95 Room air 07/18 0556 89 31 92 07/18 0400 88 28 92 07/18 0400 98.4 88 16 117/64 81.6 89 Room air 07/18 0200 87 31 90 07/18 0000 86 30 90 02/09 2345 98.8 88 16 123/67 85.7 88 Room air 07/170 84 28 97 07/17 1945 92 Room air 07/17 1941 98.1 85 16 126/62 83.3 91 24 hour I O ending at 0700: 07/18 0700 07/17 1900 Intake Total 150 Output Total 2300 Balance -2300 150 Intake, Oral 150 Number 3 Bowel Movements Output, Urine 2300 Patient 87.6 kg Weight Weight Bed scale Measurement Method PATIENT WEIGHT: Weight (lb): 193 Weight (oz): 2 Weight (kg): 87.600 Medications Active Meds + DC'd Last 24 Hrs Midodrine (PROAMATINE) 5 MG 0900,1300,1700 PRN P O Sodium Chloride (SODIUM CHLORIDE) 10 ML ASDIR IV Amiodarone HCl (CORDARONE) 200 MG BID PO Albumin Human (ALBUMINAR-25%) 12.5 GM ASDIR PRN IV (DC) Sodium Chloride (SODIUM CHLORIDE) 10 ML ASDIR NV N IV (DC) Midodrine (PROAMATINE) 10 MG 0900,1300,1700 PO ( DC) Ipratropium Kersey (ATROVENT) 500 MCG RTQ2H PRN PRN INH Lactulose (LACTULOSE) 20 GM DAILY PRN PRN PO Cyanocobalamin (Vitamin B-12 500 mcg tab) 500 MC G DAILY PO Ferrous Sulfate (FERROUS SULFATE) 325 MG DAILY P O Dopamine HCl/Dextrose (DOPamine 400MG/D5W 250ML) 250 ML ASDIR IV (DC) Bisacodyl (DULCOLAX) 10 MG ONCE PRN RECTAL Atorvastatin Calcium (LIPITOR) 40 MG 2100 PO Clopidogrel Bisulfate (Plavix) 75 MG DAILY PO Polyethylene Glycol (MIRALAX) 17 GM DAILY PO Calcium Chloride (CALCIUM CHLORIDE) 1 GM ASDIR P RN IV (DC) Sodium Chloride (SODIUM CHLORIDE 0.9%) 100 ML Calcium Chloride (CALCIUM CHLORIDE) 2 GM ASDIR P RN IV (DC) Sodium Chloride (SODIUM CHLORIDE 0.9%) 100 ML Magnesium Sulfate (MAGNESIUM SULFATE 4GM/SWFI 10 0ML) 100 ML ASDIR PRN IV (DC) Magnesium Sulfate (MAGNESIUM SULFATE 2GM/SWFI 50 ML) 50 ML ASDIR PRN IV ( DC) Potassium Chloride (KCL 10MEQ/SWFI 50ML) 50 ML A SDIR PRN IV (DC) Sodium Chloride (SODIUM CHLORIDE 0.9%) 2,000 ML ASDIR PRN IV (DC) Sodium Phosphate (SODIUM PHOSPHATE) 25 MMOL ASDI R PRN IV (DC) Sodium Chloride (SODIUM CHLORIDE 0.9%) 250 ML Sodium Phosphate (SODIUM PHOSPHATE) 20 MMOL ASDI R PRN IV (DC) Sodium Chloride (SODIUM CHLORIDE 0.9%) 250 ML Sodium Phosphate (SODIUM PHOSPHATE) 15 MMOL ASDI R PRN IV (DC) Sodium Chloride (SODIUM CHLORIDE 0.9%) 250 ML Pantoprazole (PROTONIX) 40 MG DAILY@0600 PO Aspirin (ASPIRIN) 81 MG DAILY PO Vasopressin (VASOSTRICT 20 Unit/NS 100ML) 100 ML ASDIR IV (DC) Docusate Sodium (COLACE) 100 MG BID PO Sennosides (Senna Lax 8.6 MG TABLET) 17.2 MG BED TIME PO Ipratropium Kersey (ATROVENT) 500 MCG RTQ4H INH Acetaminophen (TYLENOL) 650 MG Q4H PRN PRN PO Acetaminophen (TYLENOL) 650 MG Q4H PRN PRN RECTA L Calcium Chloride (CALCIUM CHLORIDE) 1 GM ASDIR P RN IV (DC) Dextrose/Water (DEXTROSE 10% IN WATER) 125 ML DIR PRN IV (CKD) Dextrose/Water (DEXTROSE 10% IN WATER) 250 ML DIR PRN IV (CKD) Epinephrine (ADRENALIN CHLORIDE) 4 MG ASDIR IV ( DC) Dextrose/Water (DEXTROSE 5% WATER) 246 ML Glucagon (GLUCAGON) 1 MG ASDIR PRN IM Magnesium Sulfate (MAGNESIUM SULFATE 4GM/SWFI 10 0ML) 100 ML ASDIR PRN IV Magnesium Sulfate (MAGNESIUM SULFATE 2GM/SWFI 50 ML) 50 ML ASDIR PRN IV Magnesium Sulfate/Dextrose (MAGNESIUM SULFATE 1G M/D5W 100ML) 100 ML ASDIR PRN IV Nitroglycerin/Dextrose (NITROGLYCERIN 50,000MCG/ D5W 250ML) 250 ML ASDIR IV (DC) Norepinephrine Bitartrate (NOREPINEPHRINE 8 MG/N S 250 ML) 250 ML TITRATE IV (DC) Ondansetron HCl (ZOFRAN) 4 MG Q6H PRN PRN IV Potassium Chloride (KCL 20MEQ/SWFI 100ML) 100 ML ASDIR PRN IV (DC) Sodium Bicarbonate (SODIUM BICARBONATE) 50 MEQ A SDIR PRN IV (DC) Albumin Human (ALBUMINAR-25%) 12.5 GM ASDIR PRN IV Heparin Sodium (Porcine) (HEPARIN SODIUM) 3,000 UNIT ASDIR PRN DIALYSIS Lidocaine HCl (LIDOCAINE HCL/PF) 0.5 ML ASDIR NV N I-DERMAL (CKD) Mannitol (Mannitol 20%) 12.5 GM ASDIR PRN IV Sodium Chloride (SODIUM CHLORIDE 0.9%) 2,000 ML ASDIR PRN IV Tamsulosin HCl (Flomax 0.4 mg) 0.4 MG BEDTIME PO Physical Exam General appearance: alert, awake Head/eyes: atraumatic, normocephalic ENT: moist mucous membranes, normal nose Neck: non-tender, no JVD Extremities: no edema, no swelling 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ALTH: alert, oriented X 3, normal speech Skin: dry, intact Results Findings/Data: Laboratory Tests 07/18 07/18 07/18 1331 0618 0618 Chemistry Sodium (134 - 147 mEq/L) 143 Potassium (3.4 - 5.0 mEq/L) 3.8 Chloride (100 - 108 mEq/L) 107 Carbon Dioxide (21 - 33 mEq/l) 25 Anion Gap (0 - 20) 15 BUN (7 - 18 mg/dL) 47 H Creatinine (0.6 - 1.3 mg/dL) 4.2 H Glomerular Filtr Rate (70 - 80) 13.7 L Glucose (70 - 110 mg/dL) 91 POC Glucose (70 - 110 MG/DL) 85 Calcium (8.0 - 10.5 mg/dL) 8.7 Magnesium (1.80 - 2.40 mg/dL) 1.97 Laboratory Tests 07/18 0618 Hematology WBC (4.5 - 11.0 x10 3/uL) 12.4 H RBC (4.00 - 5.60 x10 6/uL) 2.84 L Hgb (12.5 - 16.9 g/dL) 8.3 L Hct (37.5 - 50.7 %) 26.9 L MCV (81.0 - 99.0 fL) 94.7 MCH (27.0 - 33.0 pg) 29.2 MCHC (33.0 - 37.0 g/dL) 30.9 L RDW (11.5 - 14.5 %) 15.9 H Plt Count (150 - 400 x10 3/uL) 363 MPV (7.0 - 9.0 fL) 10.1 H Neut % (Auto) (56.0 - 77.0 %) 73.2 Lymph % (Auto) (14.0 - 32.0 %) 8.5 L [place] % (Auto) (4.8 - 9.0 %) 8.8 Eos % (Auto) (0.3 - 3.7 %) 7.2 H Baso % (Auto) (0.0 - 2.0 %) 0.6 Neut # (Auto) (2.0 - 7.6 x10 3/uL) 9.05 H Lymph # (Auto) (1.0 - 3.8 x10 3/uL) 1.05 [place] # (Auto) (0.1 - 0.8 x10 3/uL) 1.09 H Eos # (Auto) (0.0 - 0.2 x10 3/uL) 0.89 H Baso # (Auto) (0.0 - 0.2 x10 3/uL) 0.08 Abs Immat Gran (auto) (0.00 - 0.03 x10 3/uL) 0. 21 H Add Manual Diff NO Immature Gran % (0.0 - 2.0 %) 1.7 Nucleated RBC % (0 - 0 %) 0.0 Nucleated RBCs # (Man) (0.0 - 0.1 x10 3/uL) 0.0 0 Radiology data: Recent Impressions: RADIOLOGY - XR CHEST 1 V 07/18 0559 Report Impression - Status: SIGNED Entered: 07/18/2022 4835 IMPRESSION: 1. Stable postoperative chest. 2. Stable pulmonary opacities likely combination of atelectasis and airspace disease. 3. Stable pleural effusions. Stable loculated le ft pleural fluid and or thickening extending to the apex. Impression By: Robert Ratliff M.D. Treatment Prophylaxis Treatment Prophylaxis Drain(s)/tube(s): Drain(s)/tube(s): chest Diagnosis, Assessment Plan Free Text A P: Assessment: 1-CLAUDETTE likely from urinary retention. oliguric AK I now post op, and shock! 2- non-STEMI: multivessel disease w main left. 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 Waters catheter is in place. 4-severe bilateral hydronephrosis 5- shock : Cardiogenic resolved. 6-hyperlipidemia 7- AGMA resolved. Plan: - unknown Scr baseline. - Ultrasound showed severe bilateral hyd ronephrosis and medical renal disease. Continue Waters catheter. Urology consulted. - He underwent LHC on 07/03. - Started on HD on 07/04. - s/p CABG X5 on 07/08 -Adequate urine output volume after Lasix but no clearance. - stopped NaHCO3 as started on HD. -TDC placed 07/15. plan for HD again on 07/16. HD today for clearance - repeat labs in am and assess need for HD. stble from nephrology for discharge to [facility] Consultants: cardiology, cardiovascular surgery, nephrology Electronically Signed by Evleina Plaza MD on 03/30 at 1623 RPT #:[id number] END OF REPORT 2022-07-18 15:13:00-00:00 [facility] Prog REPORT#:[id number] REPORT STATUS: Signed DATE:07/18/22 TIME: 1513 PATIENT: SHERRI ARCE UNIT #: [id number] ROOM/BED: [place] [address] : 42 AGE: 81 SEX: M ATTEND: Srinath Kaur MD ADM AUTHOR: Rosalind Toribio * ALL edits or amendments must be made on the [email or web address] document * General Post-op: day 9 Status post: 07/08/22 CABG x 5 (MISTRY-LAD, SVG-Ladonna, SVG-OM1< SVG-OM3, SVG-PDA) ALEXIS TATUM (RGSV) Subjective Chief complaint: s/p CABG no complaints Review of Systems Constitutional: Denies: chills, fever, malaise. Allergy/Immun: Denies: allergic reaction. Respiratory: Denies: SOB. Cardiovascular: Denies: chest pain, palpitations. GI: Denies: abdominal pain, nausea, vomiting. : Denies: dysuria, hematuria. Heme: Denies: bleeding. Neuro: Denies: dizziness, headache, vision change. All systems rev neg: except as marked Objective General Dietitian Nutrition assessment The data set between the solid lines has been im ported from the dietitian's assessment. BMI Calculated: 26.2 Nutrition related diagnosis: Nutrition diagnosis details: Nutrition problem: Increased nutrient needs Nutrition etiology: Chronic disease Nutrition signs and symptoms: ESTIMATED NEEDS S/ P CABG Nutrition prescription: 1. RECOMMEND CONTINUE RE NAL DIET. 2. CONTINUE NEPRO BID. 3. MONITOR PO, WT, LABS, BM. Dietitian name: Trangbud Rodriguez, DIET Assessment completed: 07/16/22 Physical Exam General appearance: alert, oriented Wound/incision: Location: sternal Site condition: edges approximated, incision in tact HEENT: anicteric, mucosal membranes moist Neck: supple/no meningismus Cardiovascular: normal heart sounds, regular rat e rhythm Respiratory: aerating well, symmetric expansion, no distress Abdomen: soft, non-tender, no distention Genitourinary: no waters Extremities: moves all 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[employer]: alert, oriented X 3, normal speech, n o motor deficits Psychiatry: normal affect, normal mood Current Medications Medications: Active Meds + DC'd Last 24 Hrs Midodrine (PROAMATINE) 5 MG 0900,1300,1700 PRN P O Sodium Chloride (SODIUM CHLORIDE) 10 ML ASDIR IV Amiodarone HCl (CORDARONE) 200 MG BID PO Albumin Human (ALBUMINAR-25%) 12.5 GM ASDIR PRN IV (DC) Sodium Chloride (SODIUM CHLORIDE) 10 ML ASDIR NV N IV (DC) Midodrine (PROAMATINE) 10 MG 0900,1300,1700 PO ( DC) Ipratropium Kersey (ATROVENT) 500 MCG RTQ2H PRN PRN INH Lactulose (LACTULOSE) 20 GM DAILY PRN PRN PO Cyanocobalamin (Vitamin B-12 500 mcg tab) 500 MC G DAILY PO Ferrous Sulfate (FERROUS SULFATE) 325 MG DAILY P O Dopamine HCl/Dextrose (DOPamine 400MG/D5W 250ML) 250 ML ASDIR IV (DC) Bisacodyl (DULCOLAX) 10 MG ONCE PRN RECTAL Atorvastatin Calcium (LIPITOR) 40 MG 2100 PO Clopidogrel Bisulfate (Plavix) 75 MG DAILY PO Polyethylene Glycol (MIRALAX) 17 GM DAILY PO Calcium Chloride (CALCIUM CHLORIDE) 1 GM ASDIR P RN IV (DC) Sodium Chloride (SODIUM CHLORIDE 0.9%) 100 ML Calcium Chloride (CALCIUM CHLORIDE) 2 GM ASDIR P RN IV (DC) Sodium Chloride (SODIUM CHLORIDE 0.9%) 100 ML Magnesium Sulfate (MAGNESIUM SULFATE 4GM/SWFI 10 0ML) 100 ML ASDIR PRN IV (DC) Magnesium Sulfate (MAGNESIUM SULFATE 2GM/SWFI 50 ML) 50 ML ASDIR PRN IV ( DC) Potassium Chloride (KCL 10MEQ/SWFI 50ML) 50 ML A SDIR PRN IV (DC) Sodium Chloride (SODIUM CHLORIDE 0.9%) 2,000 ML ASDIR PRN IV (DC) Sodium Phosphate (SODIUM PHOSPHATE) 25 MMOL ASDI R PRN IV (DC) Sodium Chloride (SODIUM CHLORIDE 0.9%) 250 ML Sodium Phosphate (SODIUM PHOSPHATE) 20 MMOL ASDI R PRN IV (DC) Sodium Chloride (SODIUM CHLORIDE 0.9%) 250 ML Sodium Phosphate (SODIUM PHOSPHATE) 15 MMOL ASD IR PRN IV (DC) Sodium Chloride (SODIUM CHLORIDE 0.9%) 250 ML Pantoprazole (PROTONIX) 40 MG DAILY@0600 PO Aspirin (ASPIRIN) 81 MG DAILY PO Vasopressin (VASOSTRICT 20 Unit/NS 100ML) 100 ML ASDIR IV (DC) Docusate Sodium (COLACE) 100 MG BID PO Sennosides (Senna Lax 8.6 MG TABLET) 17.2 MG BED TIME PO Ipratropium Kersey (ATROVENT) 500 MCG RTQ4H INH Acetaminophen (TYLENOL) 650 MG Q4H PRN PRN PO Acetaminophen (TYLENOL) 650 MG Q4H PRN PRN RECTA L Calcium Chloride (CALCIUM CHLORIDE) 1 GM ASDIR P RN IV (DC) Dextrose/Water (DEXTROSE 10% IN WATER) 125 ML DIR PRN IV (CKD) Dextrose/Water (DEXTROSE 10% IN WATER) 250 ML DIR PRN IV (CKD) Epinephrine (ADRENALIN CHLORIDE) 4 MG ASDIR IV ( DC) Dextrose/Water (DEXTROSE 5% WATER) 246 ML Glucagon (GLUCAGON) 1 MG ASDIR PRN IM Magnesium Sulfate (MAGNESIUM SULFATE 4GM/SWFI 10 0ML) 100 ML ASDIR PRN IV Magnesium Sulfate (MAGNESIUM SULFATE 2GM/SWFI 50 ML) 50 ML ASDIR PRN IV Magnesium Sulfate/Dextrose (MAGNESIUM SULFATE 1G M/D5W 100ML) 100 ML ASDIR PRN IV Nitroglycerin/Dextrose (NITROGLYCERIN 50,000MCG/ D5W 250ML) 250 ML ASDIR IV (DC) Norepinephrine Bitartrate (NOREPINEPHRINE 8 MG/N S 250 ML) 250 ML TITRATE IV (DC) Ondansetron HCl (ZOFRAN) 4 MG Q6H PRN PRN IV Potassium Chloride (KCL 20MEQ/SWFI 100ML) 100 ML ASDIR PRN IV (DC) Sodium Bicarbonate (SODIUM BICARBONATE) 50 MEQ A SDIR PRN IV (DC) Albumin Human (ALBUMINAR-25%) 12.5 GM ASDIR PRN IV Heparin Sodium (Porcine) (HEPARIN SODIUM) 3,000 UNIT ASDIR PRN DIALYSIS Lidocaine HCl (LIDOCAINE HCL/PF) 0.5 ML ASDIR NV N I-DERMAL (CKD) Mannitol (Mannitol 20%) 12.5 GM ASDIR PRN IV Sodium Chloride (SODIUM CHLORIDE 0.9%) 2,000 ML ASDIR PRN IV Tamsulosin HCl (Flomax 0.4 mg) 0.4 MG BEDTIME PO Results Findings/Data: Laboratory Tests 07/18 07/18 07/18 1331 0618 0618 Chemistry Sodium (134 - 147 mEq/L) 143 Potassium (3.4 - 5.0 mEq/L) 3.8 Chloride (100 - 108 mEq/L) 107 Carbon Dioxide (21 - 33 mEq/l) 25 Anion Gap (0 - 20) 15 BUN (7 - 18 mg/dL) 47 H Creatinine (0.6 - 1.3 mg/dL) 4.2 H Glomerular Filtr Rate (70 - 80) 13.7 L Glucose (70 - 110 mg/dL) 91 POC Glucose (70 - 110 MG/DL) 85 Calcium (8.0 - 10.5 mg/dL) 8.7 Magnesium (1.80 - 2.40 mg/dL) 1.97 Laboratory Tests 07/18 0618 Hematology WBC (4.5 - 11.0 x10 3/uL) 12.4 H RBC (4.00 - 5.60 x10 6/uL) 2.84 L Hgb (12.5 - 16.9 g/dL) 8.3 L Hct (37.5 - 50.7 %) 26.9 L MCV (81.0 - 99.0 fL) 94.7 MCH (27.0 - 33.0 pg) 29.2 MCHC (33.0 - 37.0 g/dL) 30.9 L RDW (11.5 - 14.5 %) 15.9 H Plt Count (150 - 400 x10 3/uL) 363 MPV (7.0 - 9.0 fL) 10.1 H Neut % (Auto) (56.0 - 77.0 %) 73.2 Lymph % (Auto) (14.0 - 32.0 %) 8.5 L [place] % (Auto) (4.8 - 9.0 %) 8.8 Eos % (Auto) (0.3 - 3.7 %) 7.2 H Baso % (Auto) (0.0 - 2.0 %) 0.6 Neut # (Auto) (2.0 - 7.6 x10 3/uL) 9.05 H Lymph # (Auto) (1.0 - 3.8 x10 3/uL) 1.05 [place] # (Auto) (0.1 - 0.8 x10 3/uL) 1.09 H Eos # (Auto) (0.0 - 0.2 x10 3/uL) 0.89 H Baso # (Auto) (0.0 - 0.2 x10 3/uL) 0.08 Abs Immat Gran (auto) (0.00 - 0.03 x10 3/uL) 0. 21 H Add Manual Diff NO Immature Gran % (0.0 - 2.0 %) 1.7 Nucleated RBC % (0 - 0 %) 0.0 Nucleated RBCs # (Man) (0.0 - 0.1 x10 3/uL) 0.0 0 Radiology data: Recent Impressions: RADIOLOGY - XR CHEST 1 V 07/18 9359 Report Impression - Status: SIGNED Entered: 07/18/2022 0755 IMPRESSION: 1. Stable postoperative chest. 2. Stable pulmonary opacities likely combination of atelectasis and airspace disease. 3. Stable pleural effusions. Stable loculated le ft pleural fluid and or thickening extending to the apex. Impression By: Robert Ratliff M.D. Treatment Prophylaxis Treatment Prophylaxis Drain(s)/tube(s): Drain(s)/tube(s): chest Diagnosis, Assessment Plan Hospital course to date: This is a 81-year-old gentleman who presented to an outside hospital with complaints of chest pains while walking at his home on Thursday. He denies any previous history of coronary artery disease or o ther NE. He was seen and evaluated at [facility]. He was found to have a urinary tract infection with urinary retention and acute kidne y. He was started on dialysis via a left femoral temporary catheter. He underw ent dialysis on Thursday, Thursday. Renal has been consulted During his work-up at outside hospital he underw ent Left heart catheterization showing sever e Left Main 70%. LAD: Proximal diffuse 80% stenosis and then diffuse 60% in the midsegment and on the distal segment, there is focal 70% stenosis. Diagonal branches w ith luminal irregularities. Left circumflex, codominant circulation with pro ximal 80%, mid 80 to 90% and then in the OM, there is proximal 60%, distal le ft circumflex has a 70% stenosis. RCA large and dominant with proximal 4 0% stenosis, mid 60% stenosis and then diffuse 50% stenosi s all the way distally and the PLV and the PDA with luminal irregularities. CV surgery consulted for evaluation for coronary bypass graft. CAROTIDS - No carotid stenosis CT chest complete IMPRESSION: Small bilateral pleural effusions with bibasila r atelectasis. Echo: 1. Left ventricle: The cavity size is at the upp er limits of normal. Wall thickness is mildly increased. Systolic fu nction is severely reduced. The estimated ejection fraction is 30- 34%. Moderate hypokinesis of the entire myocardium. Doppler p arameters are consistent with abnormal left ventricular relax ation (grade 1 diastolic dysfunction). 2. Pericardium, extracardiac: A small pericardia l effusion is identified along the left ventricular free wall, along the right ventricular free wall, and along the right atrial free wall . Assessment/Plan 1) CAD Mutlivessel Will obtain echo,carotids. 2) CLAUDETTE Started dialysis on Creatine 7.3 Renal consulted. 3) BPH- Urinary retention. Waters in place Workup for CABG underway. Will get functional assessment with PT. PFT pending Carotid dopplers- No disease Echo Pending Dialyiss per Renal. Baseline Cr unknown. 07/04 07/04 Doing well today, alert, up in the chair. Denies chest pain Echocardiogram showed LVEF 30 to 34%, mild MR, t rivial TR CT chest images reviewed Encourage I-S and mobilization Creatinine 5.5 from 7.3, good urine output. Pao l US showed bilateral severe hydronephrosis. Plan for HD today and tomorrow Will tentatively schedule patient for surgery on Thursday. Patient seen and plan reviewed with Dr Schwarz 07/05 Remains in a stable condition, denies chest pain BUN 53, creatinine 5.4. Plan for hemodia lysis today and tomorrow for clearance He is also on Lasix 20 mg IV twice daily, urine output 1.1 L overnight We will calculate risk of surgery with STS score Encourage I-S and mobilization Will tentatively schedule patient for surgery on Thursday. Pt seen and plan reviewed with Dr Schwarz 07/06 BUN 36, creatinine 4.4. Plan for hemodialysis to day Awaiting CABG tomorrow Surgery, risks involved, STS score, benefits, co mplications and alternatives were explained to the patient. He acknow ledged understanding and is willing to proceed N.p.o. after midnight Patient seen and plan reviewed with Dr. Schwarz 07/09/22 POD 1 CABG x 5 (MISTRY-LAD, SVG-Ladonna, SVG-OM1< SVG-OM3, S VG-PDA), RC ESPINOZA (RGSV) Patient hemodynamically unstable, on epi at 4, a nd vaso .04, decreased uop overnight- 150cc Started patient on CRRT 2k/3.5 Wean epi as tolerated, Cardiac incex 2.8-3 labs and chest x-ray reviewed, electroly marcie stable, hgb 6.5- transfuse 2 units PRBC On 4l nasal cannula- encourage incentive spirome ter and deep breathing Keep both chest tubes and monitor outputs Glycemic control on insulin drip Cardiac diet Bowel regimen protocol Pain management SCDs for DVT and PPI for GI prophylaxis PT/OT Monitor patient closely in CVICU Plan of care discussed with Dr. Schwarz 07/10/22 POD 2 Patient alert, awake, and oriented, no distres n oted labs and CXR reviewed stable Breathing comfortably on 3l nasal cannula- wean as tolerated to melissa O2 sats > 92 % Encourage I-S use and deep breathing On CRRT- able to remove 2.9L overnight- nephrolo gy following Cardiac index 3.1- wean off epi drip Keep chest tubes for now and monitor outputs Transition to sliding scale insulin- cardiac t Try to get patient out of bed to chair today- am bulate with PT/OT SCDs for DVT prophylaxis Keep patient in CVICU for close monitoring 07/11/22 POD 3 Patient in stable condition, overnight e vents noted- decreased urine output 35 ml last night-started on dopamine gtt for renal perfusion Cardiac index 3.5- epi currently at 2- will disc ontinue today, vasopressin at 0.02, added low dose midodrine 2.5 mg TID, repea t echocardiogram. Renal Following- trial Lasix Patient has Left femoral tem p dialysis cath, Will need tunneled dialysis IJ cath placed if need dialysis. On 5l nasal cannula- wean off as tolerat ed, encourage incentive spirometer and deep breathing Keep left pleural chest tube and monitor output- > 200 cc Tolerating diet, bowel regimen protocol PT/OT- patient out of bed to chair today- encour age ambulation DVT prophylaxis with SCDs Monitor patient closely in CVICU Plan discussed with multidisciplinary team Plan discussed with Dr Schwarz/ Dr Rodríguez 07/12/22 POD 5, Patient resting comfortable. Patient with hx of urinary r etention- After standing today- voided 1.4 L. Needs Urology consult for retention K 5.4- HD in progress. Dr lPaza following. CT output 20- DC today. Pacers remain in place. Patient has Left femoral tem p dialysis cath, Re-evaluate on Thursday if skilled nursing dialysis needed. Card: Remains in sinus rhythm. Respir: on 7 L NC O2 95% Dispo: Rehab consulted Patient seen and exmained by Dr Rodríguez. Plan discussed with Team 07/13/22 POD 5 Patient with no new complaints. Recieved HD yest erday. Requiring less oxygen, now on 3l nasal cannula- continue to wean off CXR reviewed left apical pne umothorax 4cm/30%, Chest tube drained 140 overnight, placed back on suction to clear pneumo, CT drianed 200cc th is AM. on suction. Labs reviewed- stable, decreased WBC, hgb stable , CR 3.9 Eating welll, +BM UO- 550CC, BP improved on midodrine. Continue PT/OT, ambulation and incentive spirome ter use Rehab folowing Monitor in ICU today Disucssed with Dr Schwarz- Adeola C femoral line and Central line today. DC art line. Will re-eval need for dialysis cath Thursday. Cons ider tunnelled cath if need. Patient seen and examined by Dr Rodríguez. Plan discussed with Care team. 07/14 POD 6 Patient in stable condition, no distress noted Remains on room air, O2 sats > 92%, encourage I- S use and deep breathing CXR shows moderate left apical pneumothorax unch anged CT remained on suction, no airleak no Consult IR for pigtail chest tube placement this morning Cardiac/renal diet Labs reviewed- K 5.1- repeat labs K 4.8 Nephrology following Continue therapy with PT/OT Follow up with urology for waters catheter- Dr Hunter carrera consulted. Monitor in CVICU Plan of care discussed with Dr Schwarz and multi disciplinary team 07/15/22 POD 7 Patient alert, awake, and oriented, no distress, no complaints at this time Breathing comfortable on room air CXR shows resolved pneumothorax LP and pigtail chest tube- no air leak noted, mi nimal output from LP 40 overnight Labs reviewed, K 5.2- corrected, follow up with nephrology to discuss need for dialysis Trend labs this afternoon Bowel regimen, +gas Waters catheter discontinued per urology- voiding trial this AM Ambulation and incentive spirometer use encourag ed DVT prophylaxis with SCDs Keep in ICU DISP: SNF- Case management Discussed plan of care with multidisciplinary te bandar and Dr. Schwarz 07/16/2022 POD 8 Patient doing well, alert, awake, and oriented O2 sats 93% on room air, encourage I-S CXR stable- no pneumo noted Left pigtail chest tube - no air leak, clamped t his morning, repeat CXR Placement of tunneled dialysis catheter (BioFlo DuraMax 28 cm) yesterday HD treatment done yesterday evening, plan for HD treatment today per nephrology Patient failed voiding trial, waters catheter rep laced- follow up with urology Eating well Continue PT/OT- ambulation Transfer to CV 1 intermediate care unit Discharge planning for SNF- CM following and to set up dialysis chair Patient seen with Dr. Allie louis and discussed plan of care with multidisciplinary team. 07/17/22 Patient in stable condition, no complaints Labs and CXR reviewed- stable Left pigtail chest tube discontinued yesterday- no pneumo noted Remains on room air, no distress- I-S encouraged Cardiac diet, +BM Keep waters per urology f/u outpt, continue floma x HD per nephrology- CM to setup outpt dialysis ch air Awaiting bed availability on CV 1 Discharge planning- SNF Plan of care discussed with multidisciplinary david portillo and Dr. Schwarz. 07/18 Patient in stable condition, no complaints Remains on room air, no distress- I-S encouraged Epicardial pacing wires discontinued. Limited ec ho to rule out pericardial effusion Keep waters per urology f/u outpt, continue floma x HD per nephrology- CM to setup outpt dialysis ch air Discharge planning- SNF Plan of care discussed with multidisciplinary david portillo and Dr. Schwarz. Consultants: cardiology, cardiovascular surgery, nephrology at 2058 at 1939 RPT #:[id number] END OF REPORT 2022-07-18 12:51:00-00:00 [facility] Hospitalist Progress Note REPORT#:[id number] REPORT STATUS: Signed DATE:07/18/22 TIME: 1251 PATIENT: SHERRI ARCE UNIT #: [id number] ROOM/BED: 3354-1 : 42 AGE: 81 SEX: M ATTEND: Srinath Kaur MD ADM AUTHOR: Srinath Kaur MD * ALL edits or amendments must be made on the el [employer]/computer document * Subjective Chief complaint: NO COMPLAINTS, AWAITS SNF APPROVAL WHERE DIALYSI S IS AVIALABLE. HPI: 81 y/o man with PMHx of HTN, Dyslipidemia [facility] with chest pain and found to have a NSTEMI and also acute renal failure. Underwent cardiac c ath yesterday and found to have severe CAD including left main disease. Transfer here f or CABG evaluation. He also underwent HD Thursday and Thursday of this week. HD catheter was place at [facility]. Currently not having any chest pain. Had chest pain with SOB when he presentted to the previous hospital. Objective General VS/I O: Vital Signs: Date Time Temp Pulse Resp B/P B/P Pulse O2 O2 F low FiO2 Mean Ox Delivery Rate 07/18 1134 95 Room air 07/18 0556 89 31 92 07/18 0400 88 28 92 07/18 0400 98.4 88 16 117/64 81.6 89 Room air 07/18 0200 87 31 90 07/18 0000 86 30 90 07/17 2345 98.8 88 16 123/67 85.7 88 Room air 07/17 2200 84 28 97 07/17 1946 92 Room air 07/17 1942 98.1 85 16 126/62 83.3 91 07/17 1600 23 07/17 1541 83 141/72 94 07/17 1508 82 76 92 07/17 1500 79 27 129/61 88 92 07/17 1430 79 28 93 07/17 1400 80 25 128/66 91 92 07/17 1330 77 26 93 07/17 1300 79 29 122/61 85 94 24 hour I O ending at 0700: 07/18 0700 07/17 1900 Intake Total 150 Output Total 2300 Balance -2300 150 Intake, Oral 150 Number 3 Bowel Movements Output, Urine 2300 Patient 193 lb Weight Weight Bed scale Measurement Method PATIENT WEIGHT: Weight (lb): 193 Weight (oz): 2 Weight (kg): 87.600 Medications: Active Meds + DC'd Last 24 Hrs Midodrine (PROAMATINE) 5 MG 0900,1300,1700 PRN P O Sodium Chloride (SODIUM CHLORIDE) 10 ML ASDIR IV Amiodarone HCl (CORDARONE) 200 MG BID PO Albumin Human (ALBUMINAR-25%) 12.5 GM ASDIR PRN IV (DC) Sodium Chloride (SODIUM CHLORIDE) 10 ML ASDIR NV N IV (DC) Midodrine (PROAMATINE) 10 MG 0900,1300,1700 PO ( DC) Ipratropium Kersey (ATROVENT) 500 MCG RTQ2H PRN PRN INH Lactulose (LACTULOSE) 20 GM DAILY PRN PRN PO Cyanocobalamin (Vitamin B-12 500 mcg tab) 500 MC G DAILY PO Ferrous Sulfate (FERROUS SULFATE) 325 MG DAILY P O Dopamine HCl/Dextrose (DOPamine 400MG/D5W 250ML) 250 ML ASDIR IV (DC) Bisacodyl (DULCOLAX) 10 MG ONCE PRN RECTAL Atorvastatin Calcium (LIPITOR) 40 MG 2100 PO Clopidogrel Bisulfate (Plavix) 75 MG DAILY PO Polyethylene Glycol (MIRALAX) 17 GM DAILY PO Calcium Chloride (CALCIUM CHLORIDE) 1 GM ASDIR P RN IV (DC) Sodium Chloride (SODIUM CHLORIDE 0.9%) 100 ML Calcium Chloride (CALCIUM CHLORIDE) 2 GM ASDIR P RN IV (DC) Sodium Chloride (SODIUM CHLORIDE 0.9%) 100 ML Magnesium Sulfate (MAGNESIUM SULFATE 4GM/SWFI 10 0ML) 100 ML ASDIR PRN IV (DC) Magnesium Sulfate (MAGNESIUM SULFATE 2GM/SWFI 50 ML) 50 ML ASDIR PRN IV ( DC) Potassium Chloride (KCL 10MEQ/SWFI 50ML) 50 ML A SDIR PRN IV (DC) Sodium Chloride (SODIUM CHLORIDE 0.9%) 2,000 ML ASDIR PRN IV (DC) Sodium Phosphate (SODIUM PHOSPHATE) 25 MMOL ASDI R PRN IV (DC) Sodium Chloride (SODIUM CHLORIDE 0.9%) 250 ML Sodium Phosphate (SODIUM PHOSPHATE) 20 MMOL ASDI R PRN IV (DC) Sodium Chloride (SODIUM CHLORIDE 0.9%) 250 ML Sodium Phosphate (SODIUM PHOSPHATE) 15 MMOL ASDI R PRN IV (DC) Sodium Chloride (SODIUM CHLORIDE 0.9%) 250 ML Pantoprazole (PROTONIX) 40 MG DAILY@0600 PO Aspirin (ASPIRIN) 81 MG DAILY PO Vasopressin (VASOSTRICT 20 Unit/NS 100ML) 100 ML ASDIR IV (DC) Docusate Sodium (COLACE) 100 MG BID PO Sennosides (Senna Lax 8.6 MG TABLET) 17.2 MG BED TIME PO Ipratropium Kersey (ATROVENT) 500 MCG RTQ4H INH Acetaminophen (TYLENOL) 650 MG Q4H PRN PRN PO Acetaminophen (TYLENOL) 650 MG Q4H PRN PRN RECTA L Calcium Chloride (CALCIUM CHLORIDE) 1 GM ASDIR P RN IV (DC) Dextrose/Water (DEXTROSE 10% IN WATER) 125 ML DIR PRN IV (CKD) Dextrose/Water (DEXTROSE 10% IN WATER) 250 ML DIR PRN IV (CKD) Epinephrine (ADRENALIN CHLORIDE) 4 MG ASDIR IV ( DC) Dextrose/Water (DEXTROSE 5% WATER) 246 ML Glucagon (GLUCAGON) 1 MG ASDIR PRN IM Magnesium Sulfate (MAGNESIUM SULFATE 4GM/SWFI 10 0ML) 100 ML ASDIR PRN IV Magnesium Sulfate (MAGNESIUM SULFATE 2GM/SWFI 50 ML) 50 ML ASDIR PRN IV Magnesium Sulfate/Dextrose (MAGNESIUM SULFATE 1G M/D5W 100ML) 100 ML ASDIR PRN IV Nitroglycerin/Dextrose (NITROGLYCERIN 50,000MCG/ D5W 250ML) 250 ML ASDIR IV (DC) Norepinephrine Bitartrate (NOREPINEPHRINE 8 MG/N S 250 ML) 250 ML TITRATE IV (DC) Ondansetron HCl (ZOFRAN) 4 MG Q6H PRN PRN IV Potassium Chloride (KCL 20MEQ/SWFI 100ML) 100 ML ASDIR PRN IV (DC) Sodium Bicarbonate (SODIUM BICARBONATE) 50 MEQ A SDIR PRN IV (DC) Albumin Human (ALBUMINAR-25%) 12.5 GM ASDIR PRN IV Heparin Sodium (Porcine) (HEPARIN SODIUM) 3,000 UNIT ASDIR PRN DIALYSIS Lidocaine HCl (LIDOCAINE HCL/PF) 0.5 ML ASDIR NV N I-DERMAL (CKD) Mannitol (Mannitol 20%) 12.5 GM ASDIR PRN IV Sodium Chloride (SODIUM CHLORIDE 0.9%) 2,000 ML ASDIR PRN IV Tamsulosin HCl (Flomax 0.4 mg) 0.4 MG BEDTIME PO Physical Exam General appearance: chronically ill appearing, f rail, alert, awake Neck: no JVD Cardiovascular: normal heart sounds, regular rat e rhythm Respiratory: aerating well, clear to auscultatio n, symmetric expansion, no distress Abdomen: non-tender, normal bowel sounds , soft, no distention, no guarding, no rebound Extremities: no edema Musculoskeletal: normal inspection 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ALTH: alert, oriented X 3, normal speech, n o motor deficits, no sensory deficits Skin: intact, normal color, no rash Psychiatry: normal affect Results Findings/Data: Laboratory Tests 07/1818 0618 Chemistry Sodium (134 - 147 mEq/L) 143 Potassium (3.4 - 5.0 mEq/L) 3.8 Chloride (100 - 108 mEq/L) 107 Carbon Dioxide (21 - 33 mEq/l) 25 Anion Gap (0 - 20) 15 BUN (7 - 18 mg/dL) 47 H Creatinine (0.6 - 1.3 mg/dL) 4.2 H Glomerular Filtr Rate (70 - 80) 13.7 L Glucose (70 - 110 mg/dL) 91 Calcium (8.0 - 10.5 mg/dL) 8.7 Magnesium (1.80 - 2.40 mg/dL) 1.97 Laboratory Tests 07/18 0618 Hematology WBC (4.5 - 11.0 x10 3/uL) 12.4 H RBC (4.00 - 5.60 x10 6/uL) 2.84 L Hgb (12.5 - 16.9 g/dL) 8.3 L Hct (37.5 - 50.7 %) 26.9 L MCV (81.0 - 99.0 fL) 94.7 MCH (27.0 - 33.0 pg) 29.2 MCHC (33.0 - 37.0 g/dL) 30.9 L RDW (11.5 - 14.5 %) 15.9 H Plt Count (150 - 400 x10 3/uL) 363 MPV (7.0 - 9.0 fL) 10.1 H Neut % (Auto) (56.0 - 77.0 %) 73.2 Lymph % (Auto) (14.0 - 32.0 %) 8.5 L [place] % (Auto) (4.8 - 9.0 %) 8.8 Eos % (Auto) (0.3 - 3.7 %) 7.2 H Baso % (Auto) (0.0 - 2.0 %) 0.6 Neut # (Auto) (2.0 - 7.6 x10 3/uL) 9.05 H Lymph # (Auto) (1.0 - 3.8 x10 3/uL) 1.05 [place] # (Auto) (0.1 - 0.8 x10 3/uL) 1.09 H Eos # (Auto) (0.0 - 0.2 x10 3/uL) 0.89 H Baso # (Auto) (0.0 - 0.2 x10 3/uL) 0.08 Abs Immat Gran (auto) (0.00 - 0.03 x10 3/uL) 0. 21 H Add Manual Diff NO Immature Gran % (0.0 - 2.0 %) 1.7 Nucleated RBC % (0 - 0 %) 0.0 Nucleated RBCs # (Man) (0.0 - 0.1 x10 3/uL) 0.0 0 Radiology data: Recent Impressions: ULTRASOUND - DUP VEIN WOJCIECH 07/17 1519 Report Impression - Status: SIGNED Entered: 07/17/2022 1545 IMPRESSION: No evidence of deep vein thrombosis. Superficial thrombus in the right greater saphen ous vein. Complex hypoechoic area in the right inguinal re gion without internal vascular flow or peripheral hyperemia m easuring 4.2 x 1.4 x 2.3 cm which may represent a hematoma. Impression By: Toro Palma M.D. RADIOLOGY - XR CHEST 1 V 07/18 0586 Report Impression - Status: SIGNED Entered: 07/18/2022 5478 IMPRESSION: 1. Stable postoperative chest. 2. Stable pulmonary opacities likely combination of atelectasis and airspace disease. 3. Stable pleural effusions. Stable loculated le ft pleural fluid and or thickening extending to the apex. Impression By: Robert Ratliff M.D. Diagnosis, Assessment Plan Consultants: cardiology, cardiovascular surgery, nephrology Free Text DxA P Notes Free text DxA P notes: NSTEMI, CAD (coronary artery disease), S/P CABG X 5 - STABLE, CARD/CTS SEEN, TX TO SNF SOON, EF 30-35% patient presented with NSTEMI and found to hve severe CAD. Cardiac cath shows: Left Main - Distal 70% LAD - Proximal 80% with another 60% and 70% les sions Cir - Proximal 80%,mid 80-90%, Distal 70% and O M 60% RCA - large dominant with proximal 40%, Mid 60% . Cardiology and CV surgeon consulted echo: ef 30-34%, mod hypokinesis of entire myoc ardium, grade 1 diastolic dysfunction Carotid Dopplers negative PFTs PT/OT s/p CABG X5 on 07/08 Patient on ASA, plavix, BB and Statin on amiodarone Beta-tomas as tolerated for low BP, Acute systolic heart failure - STABLE, NO CHARLY/BB DUE TO LOW BP, ON MIDODRINE PRN , EF 3-35% Echocardiac with estimated LVEF of 30 to 34% wi grade 1 diastolic dysfunction -s/p Lasix 20 mg twice daily 07/05 -on metoprolol 12.5 mg bid on hold now, BP low -no ACEI/ spironolactione for CLAUDETTE -Strict I's and O's, daily weights -Start GDMT prior to discharge CLAUDETTE (acute kidney injury) DUE TO POST-OBS NEPHRO REMY - ON HD PRN, RENAL/UROL SEEN, NEEDS SNF WITH DIALYSIS ACCESS, CONT WATERS , FLOMAX, CAP SEWER FROM 7.0 TO 4.3 NOW No prior Hx of renal disease. hx of BPH and casimiro ated with Fosamax w/o improvement nd continue to h ave difficulty urinating. On admission was found to be on acute renal filaure and had received HD tw ice prior to arrival here ( thursday and thursday). Creatinine this am was 7.4, BUN 68 * Probably due to obstructive uropathy * waters already in place * Nephrology consuled for HD On daily hemodialysis as per nephrology Anemia OF CD AND SURGICAL BLOOD LOSS - STABLE -Hemoglobin dropped to 6.5 s/p CABG 2 PRBC BT ordered 07/09 Monitor H H Leukocytosis - RXT , STABLE -Afebrile Monitor WBC count HTN (hypertension) patient on metoprolol 12.5 mg BID, will adjust as needed On labetalol/hydralazine as needed Dyslipidemia on Lipitor 40mg po daliy. BPH (benign prostatic hyperplasia) - ABOVE, O N WATERS Started on Flomax at the previous hospital, thais l continue with it. Waters catheter in place, continue Waters cathete r as per nephrology 07/05 Goiter Hx of Goiter and surgical resection. TSH 3.33, within normal limits. Patient is not on Thyroid medication. anemia of chronic kidney disease Hemoglobin 8.3, monitor DEBILITY - OT/PT SEEN, SNF TX SOON UTI continue Rocephin for empiric treatment pend ing results of urine culture No growth for 48 hours DVT prophylaxis: Heparin 5000 units every 8 hour s Diet: Cardiac diet CODE STATUS: Full code Disposition: Status post CABG x5 on 07/09, hemodia lysis as per nephrology. Worked with PT in his room, on 2 L oxygen via na cj cannula. PT/OT on board. Rehab consulted. Transfer to floor. Quality: Gen Med Crit Care VTE Prophylaxis VTE prophylaxis initiated: yes Current Medications Current medication review: I attest that the foregoing medication list in t he medical record is true, accurate, and complete to the best of my knowled ge. Advanced Care Plan 65 or Older Discussed with: patient Discussion included: living will (none), power of employment law attorney (none), code status ( full code) Electronically Signed by Srinath Kaur MD on 07/18 at 1300 RPT #:[id number] END OF REPORT 2022-07-18 11:33:00-00:00 [facility] Progress Note REPORT#:[id number] REPORT STATUS: Signed DATE:07/18/22 TIME: 1133 PATIENT: SHERRI ARCE UNIT #: [id number] ROOM/BED: [place] [address] : 42 AGE: 81 SEX: M ATTEND: Srinath Kaur MD ADM AUTHOR: Jyoti Browning LAUNDRY ASSISTANT * ALL edits or amendments must be made on the el [employer]/computer document * Subjective Chief complaint: Doing okay. Objective General VS/I O: Laboratory Tests 07/18/22 0618: [Embedded Image Not Available] 07/17/22 0320: [Embedded Image Not Available] Current Medications Sig/Earl Start time Last Medication Dose Route Stop Time Status Admin Midodrine 5 MG 0900,1300,1700 PRN 07/17 2100 AC PO 08/16 2059 Sodium Chloride 10 ML ASDIR 07/17 1030 AC IV 08/16 1029 Amiodarone HCl 200 MG BID 07/16 0900 AC 07/18 PO 08/15 0859 0942 Albumin Human 12.5 GM ASDIR PRN 07/15 1915 DC IV 08/15 190 Sodium Chloride 10 ML ASDIR PRN 07/15 191 DC IV 08/14 191 Midodrine 10 MG 0900,1300,1700 07/15 1300 DC PO 07/17 2058 1309 Ipratropium Kersey 500 MCG RTQ2H PRN PRN 07/11 1821 AC 07/10 INH 08/10 1820 1302 Lactulose 20 GM DAILY PRN PRN 07/11 1245 AC 02 3 PO 08/10 1244 1411 Cyanocobalamin 500 MCG DAILY 07/11 899 AC 07/18 PO 08/10 0859 0941 Ferrous Sulfate 325 MG DAILY 07/11 899 AC 07/18 PO 08/10 0859 0942 Dopamine HCl/Dextrose 250 ML ASDIR 07/10 2099 DC 07/11 IV 08/09 Bisacodyl 10 MG ONCE PRN 07/10 1200 AC 07/11 RECTAL 08/09 1159 0928 Atorvastatin Calcium 40 MG 2100 07/09 2100 AC PO 08/08 Clopidogrel Bisulfate 75 MG DAILY 07/09 09 AC 07/18 PO 08/08 0859 0941 Polyethylene Glycol 17 GM DAILY 07/09 09 AC PO 08/08 0859 0941 Calcium Chloride 1 GM ASDIR PRN 07/09 07 DC Sodium Chloride 100 ML IV 08/08 0659 Calcium Chloride 2 GM ASDIR PRN 07/09 07 DC Sodium Chloride 100 ML IV 08/08 0659 Magnesium Sulfate 100 ML ASDIR PRN 07/09 07 DC IV 08/08 0659 Magnesium Sulfate 50 ML ASDIR PRN 07/09 07 DC IV 08/08 0659 Potassium Chloride 50 ML ASDIR PRN 07/09 0700 DC IV 08/08 0659 Sodium Chloride 2,000 ML ASDIR PRN 07/09 0700 D C 07/12 IV 08/08 0659 0906 Sodium Phosphate 25 MMOL ASDIR PRN 07/09 07 DC Sodium Chloride 250 ML IV 08/08 0659 Sodium Phosphate 20 MMOL ASDIR PRN 07/09 07 DC Sodium Chloride 250 ML IV 08/08 0659 Sodium Phosphate 15 MMOL ASDIR PRN 07/09 07 DC Sodium Chloride 250 ML IV 08/08 0659 Pantoprazole 40 MG DAILY@07/09 0600 AC 07/09 0 PO 08/08 0559 0538 Aspirin 81 MG DAILY 07/09 0020 AC 07/18 PO 08/08 0019 0941 Vasopressin 100 ML ASDIR 07/09 0015 DC 07/09 IV 08/08 0014 2139 Docusate Sodium 100 MG BID 07/08 2100 AC 07/18 PO 08/07 2058 0941 Sennosides 17.2 MG BEDTIME 07/08 2100 AC 07/17 PO 08/07 2058 2100 Ipratropium Kersey 500 MCG RTQ4H 07/08 1900 AC 07/18 INH 08/07 1859 1112 Acetaminophen 650 MG Q4H PRN PRN 07/08 1830 AC 07/17 PO 08/07 1829 0620 Acetaminophen 650 MG Q4H PRN PRN 07/08 1830 AC RECTAL 08/07 1829 Calcium Chloride 1 GM ASDIR PRN 07/08 1830 DC IV 08/07 1829 2027 Dextrose/Water 125 ML ASDIR PRN 07/08 1830 CKD IV 08/07 1829 Dextrose/Water 250 ML ASDIR PRN 07/08 1830 CKD IV 08/07 1829 Epinephrine 4 MG ASDIR 07/08 1830 DC 07/10 Dextrose/Water 246 ML IV 08/07 1829 1201 Glucagon 1 MG ASDIR PRN 07/08 1830 AC IM 08/07 1829 Magnesium Sulfate 100 ML ASDIR PRN 07/08 1830 AC IV 08/07 1829 Magnesium Sulfate 50 ML ASDIR PRN 07/08 1830 AC IV 08/07 1829 Magnesium Sulfate/ 100 ML ASDIR PRN 07/08 1830 AC 07/16 Dextrose IV 08/07 1829 0650 Nitroglycerin/ 250 ML ASDIR 07/08 1830 DC Dextrose IV / 1829 Norepinephrine 250 ML TITRATE 07/08 1830 DC Bitartrate IV 08/07 1829 Ondansetron HCl 4 MG Q6H PRN PRN 07/08 1830 AC IV 08/07 1829 Potassium Chloride 100 ML ASDIR PRN 07/08 1830 DC IV 08/07 1829 Sodium Bicarbonate 50 MEQ ASDIR PRN 07/08 1830 D C 07/09 IV 08/07 1829 0021 Albumin Human 12.5 GM ASDIR PRN 07/03 1200 AC IV 08/03 1155 1327 Heparin Sodium 3,000 UNIT ASDIR PRN 07/03 1200 A C 07/15 (Porcine) DIALYSIS 08/02 1159 1844 Lidocaine HCl 0.5 ML ASDIR PRN 07/03 1200 CKD I-DERMAL 08/03 1155 Mannitol 12.5 GM ASDIR PRN 07/03 1200 AC IV 08/03 1155 Sodium Chloride 2,000 ML ASDIR PRN 07/03 1200 AC 07/15 IV 08/03 1155 1847 Tamsulosin HCl 0.4 MG BEDTIME 07/02 2144 AC 9 PO 08/01 2143 2100 24 hour I O ending at 0700: 07/18 0700 07/17 1900 Intake Total 150 Output Total 2300 Balance -2300 150 Intake, Oral 150 Number 3 Bowel Movements Output, Urine 2300 Patient 87.6 kg Weight Weight Bed scale Measurement Method Vital Signs: Date Time Temp Pulse Resp B/P B/P Pulse O2 O2 F low FiO2 Mean Ox Delivery Rate 07/18 1134 95 Room air 07/18 0556 89 31 92 07/18 0400 88 28 92 07/18 0400 36.9 88 16 117/64 81.6 89 Room air 07/18 0200 87 31 90 07/18 0000 86 30 90 07/17 2345 37.1 88 16 123/67 85.7 88 Room air 07/17 2200 84 28 97 07/17 1946 92 Room air 07/17 1942 36.7 85 16 126/62 83.3 91 07/17 1600 23 07/17 1541 83 141/72 94 07/17 1508 82 76 92 07/17 1500 79 27 129/61 88 92 07/17 1430 79 28 93 07/17 1400 80 25 128/66 91 92 07/17 1330 77 26 93 07/17 1300 79 29 122/61 85 94 07/17 1230 81 30 93 07/17 1200 87 28 131/67 93 91 PATIENT WEIGHT: Weight (lb): 193 Weight (oz): 2 Weight (kg): 87.600 Status post: 07/08/22 CABG x 5 (MISTRY-LAD, SVG-Ladonna, SVG-OM1< SV G-OM3, SVG-PDA) ALAA Physical Exam General appearance: alert, awake, oriented, no a cute distress, pleasant Head/Eyes: atraumatic ENT: moist mucosal membranes Neck: no JVD Cardiovascular: CV assessment: pedal edema, regular rate and rh ythm, no murmur Respiratory: decreased breath sounds, no distres s Abdomen: soft, non-tender, normal bowel sounds, no distention, no guarding Upper extremity: UE assessment: normal temperature, no edema Lower extremity: LE assessment: edema (2 to 3+ pitting edema), n ormal temperature, no edema Musculoskeletal: normal inspection 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ALTH: alert, oriented X 3, normal speech Skin: dry Psychiatry: normal affect Results Radiology data: Recent Impressions: ULTRASOUND - DUP VEIN WOJCIECH 07/17 1519 Report Impression - Status: SIGNED Entered: 07/17/2022 1545 IMPRESSION: No evidence of deep vein thrombosis. Superficial thrombus in the right greater saphen ous vein. Complex hypoechoic area in the right inguinal re gion without internal vascular flow or peripheral hyperemia m easuring 4.2 x 1.4 x 2.3 cm which may represent a hematoma. Impression By: [email or web address] - Delmer Palma M.D. RADIOLOGY - XR CHEST 1 V 07/18 0559 Report Impression - Status: SIGNED Entered: 07/18/2022 1902 IMPRESSION: 1. Stable postoperative chest. 2. Stable pulmonary opacities likely combination of atelectasis and airspace disease. 3. Stable pleural effusions. Stable loculated le ft pleural fluid and or thickening extending to the apex. Impression By: Robert Ratliff M.D. Diagnosis, Assessment Plan Problem List/A P: 1. HTN (hypertension) 2. CLAUDETTE (acute kidney injury) 3. CAD (coronary artery disease) 4. Dyslipidemia 5. BPH (benign prostatic hyperplasia) Consultants: cardiology, cardiovascular surgery, nephrology Free Text DxA P Notes Free Text DxA P Notes: Mr. Arce is a pleasant 81 y/o M w/ PMHx: HTN, HLD presented to [facility] on 06/28/22 for chest pa in and sob. He was diagnosed NSTEMI. LHC showed multivessel CAD. Transferred to [facility] for CABG. 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 - CLAUDETTE - per nephrology likely from obstructive uropathy Renal ultrasound showed severe thickening of th e bladder, cholelitiasis. urology consulted for bladded outlet obstructio n and hydronephrosis, started on Flomax creatinine trending done after being started on HD HD per nephro - HTN. bp stable, midodrine as needed - HLD. On statins. - Anemia. monitor VS stable SNF pending Electronically Signed by Jyoti Browning LAUNDRY ASSISTANT on 0 07/18/22 at 1152 Electronically Signed by Liset Ennis MD on at 0753 RPT #:[id number] END OF REPORT 2022-07-18 07:14:00-00:00 [facility] Progress Note REPORT#:[id number] REPORT STATUS: Signed DATE:07/18/22 TIME: 713 PATIENT: SHERRI ARCE UNIT #: [id number] ROOM/BED: [place] [address] : 42 AGE: 81 SEX: M ATTEND: Srinath Kaur MD ADM AUTHOR: Magdaleno Washburn * ALL edits or amendments must be made on the el [employer]/computer document * Subjective Chief complaint: Rehab follow-up Doing well. Sitting up in chair Looks good today Denies pain or sob Pleasant Denies NAIK/N/V/D/CP 14 systems reviewed and neg. except that above. Objective General VS: Vital Signs: Date Time Temp Pulse Resp B/P B/P Pulse O2 O2 F low FiO2 Mean Ox Delivery Rate 07/18 0556 89 31 92 07/18 0400 88 28 92 07/18 0400 98.4 88 16 117/64 81.6 89 Room air 07/18 0200 87 31 90 02 0000 86 30 90 07/17 2345 98.8 88 16 123/67 85.7 88 Room air 07/17 2200 84 28 97 07/17 1946 92 Room air 07/17 1942 98.1 85 16 126/62 83.3 91 07/17 1600 23 07/17 1541 83 141/72 94 02/ 1508 82 76 92 02/ 1500 79 27 129/61 88 92 07/17 1430 79 28 93 02/ 1400 80 25 128/66 91 92 02/ 1330 77 26 93 02/ 1300 79 29 122/61 85 94 02/ 1230 81 30 93 02/ 1200 87 28 131/67 93 91 / 1130 78 24 93 02/ 1101 84 32 123/66 89 95 02/ 1100 83 31 95 02/ 1030 82 28 93 02/ 1019 93 30 133/61 88 93 02/ 1000 85 27 106/55 77 93 02/ 0930 92 44 92 02/ 0916 90 32 107/58 79 92 02/ 0900 98.1 02/ 0900 87 26 92 02/ 0830 83 27 92 02/ 0800 85 28 117/56 80 93 02/ 0735 92 Room air 07/17 0730 81 28 91 PATIENT WEIGHT: Weight (lb): 193 Weight (oz): 2 Weight (kg): 87.600 Medications: Active Meds + DC'd Last 24 Hrs Midodrine (PROAMATINE) 5 MG 0900,1300,1700 PRN PO Sodium Chloride (SODIUM CHLORIDE) 10 ML ASDIR IV Amiodarone HCl (CORDARONE) 200 MG BID PO Albumin Human (ALBUMINAR-25%) 12.5 GM ASDIR PRN IV (DC) Sodium Chloride (SODIUM CHLORIDE) 10 ML ASDIR NV N IV (DC) Midodrine (PROAMATINE) 10 MG 0900,1300,1700 PO ( DC) Ipratropium Kersey (ATROVENT) 500 MCG RTQ2H PRN PRN INH Lactulose (LACTULOSE) 20 GM DAILY PRN PRN PO Cyanocobalamin (Vitamin B-12 500 mcg tab) 500 MC G DAILY PO Ferrous Sulfate (FERROUS SULFATE) 325 MG DAILY P O Dopamine HCl/Dextrose (DOPamine 400MG/D5W 250ML) 250 ML ASDIR IV (DC) Bisacodyl (DULCOLAX) 10 MG ONCE PRN RECTAL Atorvastatin Calcium (LIPITOR) 40 MG 2100 PO Clopidogrel Bisulfate (Plavix) 75 MG DAILY PO Polyethylene Glycol (MIRALAX) 17 GM DAILY PO Calcium Chloride (CALCIUM CHLORIDE) 1 GM ASDIR P RN IV (DC) Sodium Chloride (SODIUM CHLORIDE 0.9%) 100 ML Calcium Chloride (CALCIUM CHLORIDE) 2 GM ASDIR P RN IV (DC) Sodium Chloride (SODIUM CHLORIDE 0.9%) 100 ML Magnesium Sulfate (MAGNESIUM SULFATE 4GM/SWFI 10 0ML) 100 ML ASDIR PRN IV (DC) Magnesium Sulfate (MAGNESIUM SULFATE 2GM/SWFI 50 ML) 50 ML ASDIR PRN IV ( DC) Potassium Chloride (KCL 10MEQ/SWFI 50ML) 50 ML A SDIR PRN IV (DC) Sodium Chloride (SODIUM CHLORIDE 0.9%) 2,000 ML ASDIR PRN IV (DC) Sodium Phosphate (SODIUM PHOSPHATE) 25 MMOL ASDI R PRN IV (DC) Sodium Chloride (SODIUM CHLORIDE 0.9%) 250 ML Sodium Phosphate (SODIUM PHOSPHATE) 20 MMOL ASDI R PRN IV (DC) Sodium Chloride (SODIUM CHLORIDE 0.9%) 250 ML Sodium Phosphate (SODIUM PHOSPHATE) 15 MMOL ASDI R PRN IV (DC) Sodium Chloride (SODIUM CHLORIDE 0.9%) 250 ML Pantoprazole (PROTONIX) 40 MG DAILY@0600 PO Aspirin (ASPIRIN) 81 MG DAILY PO Vasopressin (VASOSTRICT 20 Unit/NS 100ML) 100 ML ASDIR IV (DC) Docusate Sodium (COLACE) 100 MG BID PO Sennosides (Senna Lax 8.6 MG TABLET) 17.2 MG BED TIME PO Ipratropium Kersey (ATROVENT) 500 MCG RTQ4H INH Acetaminophen (TYLENOL) 650 MG Q4H PRN PRN PO Acetaminophen (TYLENOL) 650 MG Q4H PRN PRN RECTA L Calcium Chloride (CALCIUM CHLORIDE) 1 GM ASDIR P RN IV (DC) Dextrose/Water (DEXTROSE 10% IN WATER) 125 ML DIR PRN IV (CKD) Dextrose/Water (DEXTROSE 10% IN WATER) 250 ML DIR PRN IV (CKD) Epinephrine (ADRENALIN CHLORIDE) 4 MG ASDIR IV ( DC) Dextrose/Water (DEXTROSE 5% WATER) 246 ML Glucagon (GLUCAGON) 1 MG ASDIR PRN IM Magnesium Sulfate (MAGNESIUM SULFATE 4GM/SWFI 10 0ML) 100 ML ASDIR PRN IV Magnesium Sulfate (MAGNESIUM SULFATE 2GM/SWFI 50 ML) 50 ML ASDIR PRN IV Magnesium Sulfate/Dextrose (MAGNESIUM SULFATE 1G M/D5W 100ML) 100 ML ASDIR PRN IV Nitroglycerin/Dextrose (NITROGLYCERIN 50,000MCG/ D5W 250ML) 250 ML ASDIR IV (DC) Norepinephrine Bitartrate (NOREPINEPHRINE 8 MG/N S 250 ML) 250 ML TITRATE IV (DC) Ondansetron HCl (ZOFRAN) 4 MG Q6H PRN PRN IV Potassium Chloride (KCL 20MEQ/SWFI 100ML) 100 ML ASDIR PRN IV (DC) Sodium Bicarbonate (SODIUM BICARBONATE) 50 MEQ A SDIR PRN IV (DC) Albumin Human (ALBUMINAR-25%) 12.5 GM ASDIR PRN IV Heparin Sodium (Porcine) (HEPARIN SODIUM) 3,000 UNIT ASDIR PRN DIALYSIS Lidocaine HCl (LIDOCAINE HCL/PF) 0.5 ML ASDIR NV N I-DERMAL (CKD) Mannitol (Mannitol 20%) 12.5 GM ASDIR PRN IV Sodium Chloride (SODIUM CHLORIDE 0.9%) 2,000 ML ASDIR PRN IV Tamsulosin HCl (Flomax 0.4 mg) 0.4 MG BEDTIME PO Functional Progress Functional progress: Weightbearing: STERNAL Ambulation Distance: 250 FT 200 FT Progression: Forward Backward Lateral, Right Lateral, Left Assistance Level: Supervision or Set-up Gait Deviations: SLOW Base of Support - Narrow [facility] Mobility: Yes Advanced Progression: No Effects of Treatment: Cardio tolerance improved Function Improved Gait quality improved Post TX Precautions: In Bed, rails Up Call Light in Reach Nursing Notified Review Plan of Care: Yes PT charges: Gait Training [id number] Gait Cmt: PATIENT MOTIVATED AND PARTICIPATED WE LL WITH GAIT TRNG. NO C/O PAIN OR DISCOMFORT. BP 117/59 POS GAIT. Physical Exam General appearance: alert, awake, oriented Psych: alert, oriented x 3 HEENT: anicteric, sclera clear Neck: supple, no JVD Cardiovascular: regular rate rhythm, S1/S2 Respiratory: aerating well, clear bilaterally Abdomen: bowel sounds present, non-distended, so ft Skin: intact, no rash Musculoskeletal - general: Musculoskeletal - general: joints normal, meagan l muscle mass, normal tone 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: alert, oriented X 3, CNII-XII intact Results Findings/Data: Laboratory Tests 07/17 07/17 07/16 07/16 07/15 0320 0320 0310 0309 1710 Chemistry Sodium (134 - 147 mEq/L) 143 143 Potassium (3.4 - 5.0 mEq/L) 3.9 4.3 Chloride (100 - 108 mEq/L) 107 105 Carbon Dioxide (21 - 33 mEq/l) 29 29 Anion Gap (0 - 20) 11 13 BUN (7 - 18 mg/dL) 33 H 43 H Creatinine (0.6 - 1.3 mg/dL) 3.5 H 4.0 H Glomerular Filtr Rate (70 - 80) 17.0 L 14.5 L Glucose (70 - 110 mg/dL) 113 H 97 Calcium (8.0 - 10.5 mg/dL) 8.2 8.4 Magnesium (1.80 - 2.40 mg/dL) 2.00 2.10 2.39 07/15 1710 Chemistry Sodium (134 - 147 mEq/L) 138 Potassium (3.4 - 5.0 mEq/L) 5.1 H Chloride (100 - 108 mEq/L) 103 Carbon Dioxide (21 - 33 mEq/l) 24 Anion Gap (0 - 20) 16 BUN (7 - 18 mg/dL) 78 H Creatinine (0.6 - 1.3 mg/dL) 5.9 H Glomerular Filtr Rate (70 - 80) 9.1 L Glucose (70 - 110 mg/dL) 102 Calcium (8.0 - 10.5 mg/dL) 8.5 Laboratory Tests 07/17 07/16 0320 0309 Hematology WBC (4.5 - 11.0 x10 3/uL) 11.0 10.8 RBC (4.00 - 5.60 x10 6/uL) 2.81 L 2.73 L Hgb (12.5 - 16.9 g/dL) 8.3 L 8.2 L Hct (37.5 - 50.7 %) 26.6 L 25.6 L MCV (81.0 - 99.0 fL) 94.7 93.8 MCH (27.0 - 33.0 pg) 29.5 30.0 MCHC (33.0 - 37.0 g/dL) 31.2 L 32.0 L RDW (11.5 - 14.5 %) 16.1 H 16.1 H Plt Count (150 - 400 x10 3/uL) 321 282 MPV (7.0 - 9.0 fL) 10.1 H 10.7 H Neut % (Auto) (56.0 - 77.0 %) 71.6 70.2 Lymph % (Auto) (14.0 - 32.0 %) 7.2 L 7.1 L [place] % (Auto) (4.8 - 9.0 %) 11.0 H 12.2 H Eos % (Auto) (0.3 - 3.7 %) 6.8 H 6.9 H Baso % (Auto) (0.0 - 2.0 %) 0.6 0.7 Neut # (Auto) (2.0 - 7.6 x10 3/uL) 7.90 H 7.58 Lymph # (Auto) (1.0 - 3.8 x10 3/uL) 0.80 L 0.77 L [place] # (Auto) (0.1 - 0.8 x10 3/uL) 1.21 H 1.32 H Eos # (Auto) (0.0 - 0.2 x10 3/uL) 0.75 H 0.75 H Baso # (Auto) (0.0 - 0.2 x10 3/uL) 0.07 0.08 Abs Immat Gran (auto) (0.00 - 0.03 x10 3/uL) 0. 31 H 0.31 H Add Manual Diff NO NO Immature Gran % (0.0 - 2.0 %) 2.8 H 2.9 H Nucleated RBC % (0 - 0 %) 0.0 0.0 Nucleated RBCs # (Man) (0.0 - 0.1 x10 3/uL) 0.0 0 0.00 Recent Impressions: RADIOLOGY - XR CHEST 1 V 07/15 1700 Report Impression - Status: SIGNED Entered: 07/15/2022 1841 IMPRESSION: Placement of right internal jugular central line with tip in the SVC. Impression By: Kourtney Boo M.D. RADIOLOGY - XR CHEST 1 V 07/16 0500 Report Impression - Status: SIGNED Entered: 07/16/2022 0710 IMPRESSION: Removal of the left basilar chest tube. Otherwis e, stable exam. Impression By: [email or web address] Yasmin Sesay M.D. RADIOLOGY - XR CHEST 1 V 07/16 1055 Report Impression - Status: SIGNED Entered: 07/16/2022 1158 IMPRESSION: 1. Small left and stable small right layering pl eural effusion. 2. Left chest tube present. No pneumothorax. 3. Stable bibasilar airspace opacities Impression By: [email or web address] Yasmin Enriquez M.D . RADIOLOGY - XR CHEST 1 V 07/17 0554 Report Impression - Status: SIGNED Entered: 07/17/2022 0757 IMPRESSION: 1. Stable postoperative cardiomediastinal silhou ette. 2. Stable pulmonary opacities. 3. Stable pleural effusions. Pleural fluid/thick ening extending over the left apex. No pneumothorax following th oracostomy tube removal. Impression By: Robert Ratliff M.D. ULTRASOUND - DUP VEIN WOJCIECH 07/17 1519 Report Impression - Status: SIGNED Entered: 07/17/2022 1545 IMPRESSION: No evidence of deep vein thrombosis. Superficial thrombus in the right greater saphen ous vein. Complex hypoechoic area in the right inguinal re gion without internal vascular flow or peripheral hyperemia m easuring 4.2 x 1.4 x 2.3 cm which may represent a hematoma. Impression By: [email or web address] Yasmin Palma M.D. Diagnosis, Assessment Plan Free Text A P: Non-STEMI Multivessel CAD S/p CABG x5 Physical deconditioning Impaired mobility and gait Postoperative anemia Dyslipidemia Hypertension CLAUDETTE Acute systolic heart failure Hemodynamic issues postop Leukocytosis trending down Plan: Continue PT/OT Out of bed to chair Work on strength, bed mobility, transfers, gait Sternal precaution Increase endurance Fall precautions Monitor p.o. intake and nutrition Strict decubitus precautions Monitor anemia. 2/ Persistent left pneumothorax. IR guided pigtail place. CXR shows expansion of the lung Urology consulted -Pt on Flomax Nephrology managing renal issues and elevated K+ Advance therapies as tolerated Pt lives alone and has 5 to 6 stairs to enter ho use SNF order has been placed Total time was 33 minutes > 50% with patient per forming physical examination, discussing plan of care, goals, therapies, progr ess, medications, labs, SNF. All questions answered Rehab attestation: . Electronically Signed by Magdaleno Washburn on 0 07/18/22 at 2052 RPT #:[id number] END OF REPORT 2022-07-17 13:57:00-00:00 [facility] ([facility] Hospitalist Progress Note REPORT#:[id number] REPORT STATUS: Signed DATE:07/17/22 TIME: 1357 PATIENT: SHERRI ARCE UNIT #: [id number] ROOM/BED: [place] [address] : 42 AGE: 81 SEX: M ATTEND: Sam Mcarthur MD ADM AUTHOR: Sarbjit Mcarthur MD * ALL edits or amendments must be made on the [email or web address] document * Subjective Chief complaint: Status post CABG x5 on 07/09, Doing well today. Am bulated around the unit. HPI: 81 y/o man with PMHx of HTN, Dyslipidemia [facility] with chest pain and found to have a NSTEMI and also acute renal failure. Underwent cardiac c ath yesterday and found to have severe CAD including left main disease. Transfer here f or CABG evaluation. He also underwent HD Thursday and Thursday of this week. HD catheter was place at [facility]. Currently not having any chest pain. Had chest pain with SOB when he presentted to the previous hospital. Objective General VS/I O: Vital Signs: Date Time Temp Pulse Resp B/P B/P Pulse O2 O2 F low FiO2 Mean Ox Delivery Rate 07/17 899 98.1 07/17 0635 92 Room air 07/16 1999 97.8 07/16 1952 95 Room air 07/16 1901 97.7 92 22 124/65 07/16 1700 79 26 121/63 86 95 / 1600 97.9 78 26 112/59 76 93 Room air 07/16 1600 78 26 112/59 80 93 07/16 1535 97 Room air 21 07/16 1530 79 25 109/60 78 93 07/16 1515 78 27 104/56 77 92 07/16 1500 97.5 75 24 110/55 /08 1500 75 22 110/55 76 94 08 1400 82 28 104/58 78 92 24 hour I O ending at 0700: 07/17 0700 07/16 1900 Intake Total 750 1060.00 Output Total 1075 950 Balance -325 110.00 Intake, 0 Hemodialysis Intake, IV 100.00 Intake, Oral 750 960 Number 1 Bowel Movements Output, Urine 1075 950 Patient 88.8 kg Weight Weight Standing scale Measurement Method PATIENT WEIGHT: Weight (lb): 195 Weight (oz): 12.33 Weight (kg): 88.800 Physical Exam General appearance: alert, awake, oriented Head/Eyes: atraumatic, EOMI, normal conjunctiva/ sclera, normocephalic, PERRLA ENT: moist mucosal membranes Neck: full range of motion, no bruit/NL carotids , no JVD Cardiovascular: normal heart sounds, regular rat e rhythm Respiratory: aerating well, clear to auscultatio n, symmetric expansion, no distress Abdomen: non-tender, normal bowel sounds , soft, no distention, no guarding, no rebound Extremities: moves all, no cyanosis, no edema Musculoskeletal: normal inspection 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: alert, oriented X 3, normal speech, n o motor deficits, no sensory deficits Skin: intact, normal color, no rash Psychiatry: normal affect Results Findings/Data: Laboratory Tests 07/17 07/17 0320 0320 Chemistry Sodium (134 - 147 mEq/L) 143 Potassium (3.4 - 5.0 mEq/L) 3.9 Chloride (100 - 108 mEq/L) 107 Carbon Dioxide (21 - 33 mEq/l) 29 Anion Gap (0 - 20) 11 BUN (7 - 18 mg/dL) 33 H Creatinine (0.6 - 1.3 mg/dL) 3.5 H Glomerular Filtr Rate (70 - 80) 17.0 L Glucose (70 - 110 mg/dL) 113 H Calcium (8.0 - 10.5 mg/dL) 8.2 Magnesium (1.80 - 2.40 mg/dL) 2.00 Laboratory Tests 07/17 0320 Hematology WBC (4.5 - 11.0 x10 3/uL) 11.0 RBC (4.00 - 5.60 x10 6/uL) 2.81 L Hgb (12.5 - 16.9 g/dL) 8.3 L Hct (37.5 - 50.7 %) 26.6 L MCV (81.0 - 99.0 fL) 94.7 MCH (27.0 - 33.0 pg) 29.5 MCHC (33.0 - 37.0 g/dL) 31.2 L RDW (11.5 - 14.5 %) 16.1 H Plt Count (150 - 400 x10 3/uL) 321 MPV (7.0 - 9.0 fL) 10.1 H Neut % (Auto) (56.0 - 77.0 %) 71.6 Lymph % (Auto) (14.0 - 32.0 %) 7.2 L [place] % (Auto) (4.8 - 9.0 %) 11.0 H Eos % (Auto) (0.3 - 3.7 %) 6.8 H Baso % (Auto) (0.0 - 2.0 %) 0.6 Neut # (Auto) (2.0 - 7.6 x10 3/uL) 7.90 H Lymph # (Auto) (1.0 - 3.8 x10 3/uL) 0.80 L [place] # (Auto) (0.1 - 0.8 x10 3/uL) 1.21 H Eos # (Auto) (0.0 - 0.2 x10 3/uL) 0.75 H Baso # (Auto) (0.0 - 0.2 x10 3/uL) 0.07 Abs Immat Gran (auto) (0.00 - 0.03 x10 3/uL) 0. 31 H Add Manual Diff NO Immature Gran % (0.0 - 2.0 %) 2.8 H Nucleated RBC % (0 - 0 %) 0.0 Nucleated RBCs # (Man) (0.0 - 0.1 x10 3/uL) 0.0 0 Radiology data: Recent Impressions: RADIOLOGY - XR CHEST 1 V 07/17 2654 Report Impression - Status: SIGNED Entered: 07/17/2022 0757 IMPRESSION: 1. Stable postoperative cardiomediastinal silhou ette. 2. Stable pulmonary opacities. 3. Stable pleural effusions. Pleural fluid/thick ening extending over the left apex. No pneumothorax following th oracostomy tube removal. Impression By: Robert Ratliff M.D. Treatment Prophylaxis Treatment Prophylaxis Drain(s)/tube(s): Drain(s)/tube(s): chest Diagnosis, Assessment Plan Consultants: cardiology, cardiovascular surgery, nephrology Free Text DxA P Notes Free text DxA P notes: Assessment and plans: CAD (coronary artery disease) patient presented with NSTEMI and found to hve severe CAD. Cardiac cath shows: Left Main - Distal 70% LAD - Proximal 80% with another 60% and 70% les sions Cir - Proximal 80%,mid 80-90%, Distal 70% and O M 60% RCA - large dominant with proximal 40%, Mid 60% . Cardiology and CV surgeon consulted echo: ef 30-34%, mod hypokinesis of entire myoc ardium, grade 1 diastolic dysfunction Carotid Dopplers negative PFTs PT/OT s/p CABG X5 on 07/08 Patient on ASA, plavix, BB and Statin on amiodarone Beta-tomas as tolerated for low BP, Acute systolic heart failure Echocardiac with estimated LVEF of 30 to 34% wi th grade 1 diastolic dysfunction -s/p Lasix 20 mg twice daily 07/05 -on metoprolol 12.5 mg bid on hold now, BP low -no ACEI/ spironolactione for CLAUDETTE -Strict I's and O's, daily weights -Start GDMT prior to discharge CLAUDETTE (acute kidney injury) No prior Hx of renal disease. hx of BPH and casimiro ated with Fosamax w/o improvement nd continue to h ave difficulty urinating. On admission was found to be on acute renal filaure and had received HD tw ice prior to arrival here ( thursday and thursday). Creatinine this am was 7.4, BUN 68 * Probably due to obstructive uropathy * waters already in place * Nephrology consuled for HD On daily hemodialysis as per nephrology Anemia: -Hemoglobin dropped to 6.5 s/p CABG 2 PRBC BT ordered 07/09 Monitor H H Leukocytosis: -Afebrile Monitor WBC count HTN (hypertension) patient on metoprolol 12.5 mg BID, will adjust as needed On labetalol/hydralazine as needed Dyslipidemia on Lipitor 40mg po daliy. BPH (benign prostatic hyperplasia) Started on Flomax at the previous hospital, thais l continue with it. Waters catheter in place, continue Waters cathete r as per nephrology 07/05 Goiter Hx of Goiter and surgical resection. TSH 3.33, within normal limits. Patient is not on Thyroid medication. anemia of chronic kidney disease Hemoglobin 8.3, monitor Hypokalemia resolved UTI continue Rocephin for empiric treatment pend ing results of urine culture No growth for 48 hours DVT prophylaxis: Heparin 5000 units every 8 hour s Diet: Cardiac diet CODE STATUS: Full code Disposition: Status post CABG x5 on 07/09, hemodia lysis as per nephrology. Worked with PT in his room, on 2 L oxygen via na cj cannula. PT/OT on board. Rehab consulted. Transfer to floor. Quality: Gen Med Crit Care VTE Prophylaxis VTE prophylaxis initiated: yes Current Medications Current medication review: I attest that the foregoing medication list in t medical record is true, accurate, and complete to the best of my knowled ge. Advanced Care Plan 65 or Older Discussed with: patient Discussion included: living will (none), power of employment law attorney (none), code status ( full code) at 1359 RPT #:[id number] END OF REPORT 2022-07-17 13:09:00-00:[address] [facility]) Urology Progress Note REPORT#:[id number] REPORT STATUS: Signed DATE:07/17/22 TIME: 1309 PATIENT: SHERRI ARCE UNIT #: [id number] ROOM/BED: [place] [address] : 42 AGE: 81 SEX: M ATTEND: Sam Mcarthur MD ADM AUTHOR: Jonathan Harris MD * ALL edits or amendments must be made on the el [employer]ronic/computer document * Subjective Patient reports: unable to void Objective General VS/I O: Last Documented: Result Date Time Temp 36.7 07/17 899 Pulse Ox 92 07/17 734 O2 Delivery Room air 07/17 734 B/P 124/65 07/16 1901 Pulse 92 07/16 190 Resp 22 07/16 190 B/P Mean 86 07/16 1700 FiO2 21 07/16 1535 O2 Flow Rate 3 07/14 1151 24 hour I O ending at 0700: 07/17 1900 Intake Total 750 1060.00 Output Total 1075 950 Balance -325 110.00 Intake, 0 Hemodialysis Intake, IV 100.00 Intake, Oral 750 960 Number 1 Bowel Movements Output, Urine 1075 950 Patient 88.8 kg Weight Weight Standing scale Measurement Method PATIENT WEIGHT: Weight (lb): 195 Weight (oz): 12.33 Weight (kg): 88.800 Physical Exam General appearance: alert, awake, oriented Abdomen: soft, non-tender Genitourinary: Genitourinary: catheter in situ Results Findings/Data: Laboratory Tests: 07/17 07/17 0320 0320 Chemistry Sodium (134 - 147 mEq/L) 143 Potassium (3.4 - 5.0 mEq/L) 3.9 Chloride (100 - 108 mEq/L) 107 Carbon Dioxide (21 - 33 mEq/l) 29 Anion Gap (0 - 20) 11 BUN (7 - 18 mg/dL) 33 H Creatinine (0.6 - 1.3 mg/dL) 3.5 H Glomerular Filtr Rate (70 - 80) 17.0 L Glucose (70 - 110 mg/dL) 113 H Calcium (8.0 - 10.5 mg/dL) 8.2 Magnesium (1.80 - 2.40 mg/dL) 2.00 Hematology WBC (4.5 - 11.0 x10 3/uL) 11.0 RBC (4.00 - 5.60 x10 6/uL) 2.81 L Hgb (12.5 - 16.9 g/dL) 8.3 L Hct (37.5 - 50.7 %) 26.6 L MCV (81.0 - 99.0 fL) 94.7 MCH (27.0 - 33.0 pg) 29.5 MCHC (33.0 - 37.0 g/dL) 31.2 L RDW (11.5 - 14.5 %) 16.1 H Plt Count (150 - 400 x10 3/uL) 321 MPV (7.0 - 9.0 fL) 10.1 H Neut % (Auto) (56.0 - 77.0 %) 71.6 Lymph % (Auto) (14.0 - 32.0 %) 7.2 L [place] % (Auto) (4.8 - 9.0 %) 11.0 H Eos % (Auto) (0.3 - 3.7 %) 6.8 H Baso % (Auto) (0.0 - 2.0 %) 0.6 Neut # (Auto) (2.0 - 7.6 x10 3/uL) 7.90 H Lymph # (Auto) (1.0 - 3.8 x10 3/uL) 0.80 L [place] # (Auto) (0.1 - 0.8 x10 3/uL) 1.21 H Eos # (Auto) (0.0 - 0.2 x10 3/uL) 0.75 H Baso # (Auto) (0.0 - 0.2 x10 3/uL) 0.07 Abs Immat Gran (auto) (0.00 - 0.03 x10 3/uL) 0. 31 H Add Manual Diff NO Immature Gran % (0.0 - 2.0 %) 2.8 H Nucleated RBC % (0 - 0 %) 0.0 Nucleated RBCs # (Man) (0.0 - 0.1 x10 3/uL) 0.0 0 Recent Impressions: RADIOLOGY - XR CHEST 1 V 07/17 6355 Report Impression - Status: SIGNED Entered: 07/17/2022 0754 IMPRESSION: 1. Stable postoperative cardiomediastinal silhou ette. 2. Stable pulmonary opacities. 3. Stable pleural effusions. Pleural fluid/thick ening extending over the left apex. No pneumothorax following th oracostomy tube removal. Impression By: Robert Ratliff M.D. Diagnosis, Assessment Plan Free Text A P: BPH with retention post-procedure, failed VT - Home with waters catheter, f/u in clinic, terri nue flomax at [address] [facility] #:[id number] END OF REPORT 2022-07-17 12:55:00-00:00 [facility] ([facility]) Nephrology Progress Note REPORT#:[id number] REPORT STATUS: Signed DATE:07/17/22 TIME: 1255 PATIENT: SHERRI ARCE UNIT #: [id number] ROOM/BED: [place] [address] : 42 AGE: 81 SEX: M ATTEND: Sam Mcarthur MD ADM AUTHOR: Evelina Plaza MD * ALL edits or amendments must be made on the [email or web address] document * Subjective Chief complaint: Feeling okay and has no complaints at this time. Objective General VS/I O: Vital Signs: Date Time Temp Pulse Resp B/P B/P Pulse O2 O2 F low FiO2 Mean Ox Delivery Rate 07/17 1600 23 07/17 1541 83 141/72 94 07/17 1508 82 76 92 / 1500 79 27 129/61 88 92 07/17 1430 79 28 93 07/17 1400 80 25 128/66 91 92 07/17 1330 77 26 93 / 1300 79 29 122/61 85 94 02/ 1230 81 30 93 02/ 1200 87 28 131/67 93 91 / 1130 78 24 93 / 1101 84 32 123/66 89 95 02/ 1100 83 31 95 / 1030 82 28 93 / 1019 93 30 133/61 88 93 02/ 1000 85 27 106/55 77 93 / 0930 92 44 92 07/17 0916 90 32 107/58 79 92 07/17 0900 98.1 07/17 0900 87 26 92 / 0830 83 27 92 07/17 0800 85 28 117/56 80 93 / 0735 92 Room air 07/17 0730 81 28 91 / 0700 86 28 91 / 2000 97.8 02 1953 95 Room air 07/16 1902 97.7 92 22 124/65 24 hour I O ending at 0700: 07/17 0700 02/08 1900 Intake Total 750 1060.00 Output Total 1075 950 Balance -325 110.00 Intake, 0 Hemodialysis Intake, IV 100.00 Intake, Oral 750 960 Number 1 Bowel Movements Output, Urine 1075 950 Patient 88.8 kg Weight Weight Standing scale Measurement Method PATIENT WEIGHT: Weight (lb): 195 Weight (oz): 12.33 Weight (kg): 88.800 Medications Active Meds + DC'd Last 24 Hrs Sodium Chloride (SODIUM CHLORIDE) 10 ML ASDIR IV Potassium Chloride (POTASSIUM CHLORIDE 10 MEQ TA B.ER) 10 MEQ ONCE ONE PO (DC) Amiodarone HCl (CORDARONE) 200 MG BID PO Cefazolin Sodium (KEFZOL OR ANCEF) 2 GM PREOP IVF EMBRYOLOGIST IV (DC) Albumin Human (ALBUMINAR-25%) 12.5 GM ASDIR PRN IV Sodium Chloride (SODIUM CHLORIDE) 10 ML ASDIR NV N IV Midodrine (PROAMATINE) 10 MG 0900,1300,1700 PO Sodium Chloride (SODIUM CHLORIDE) 20 ML ASDIR I V (DC) Ipratropium Kersey (ATROVENT) 500 MCG RTQ2H PRN PRN INH Lactulose (LACTULOSE) 20 GM DAILY PRN PRN PO Cyanocobalamin (Vitamin B-12 500 mcg tab) 500 MC G DAILY PO Ferrous Sulfate (FERROUS SULFATE) 325 MG DAILY P O Dopamine HCl/Dextrose (DOPamine 400MG/D5W 250ML) 250 ML ASDIR IV Bisacodyl (DULCOLAX) 10 MG ONCE PRN RECTAL Atorvastatin Calcium (LIPITOR) 40 MG 2100 PO Clopidogrel Bisulfate (Plavix) 75 MG DAILY PO Polyethylene Glycol (MIRALAX) 17 GM DAILY PO Calcium Chloride (CALCIUM CHLORIDE) 1 GM ASDIR P RN IV Sodium Chloride (SODIUM CHLORIDE 0.9%) 100 ML Calcium Chloride (CALCIUM CHLORIDE) 2 GM ASDIR P RN IV Sodium Chloride (SODIUM CHLORIDE 0.9%) 100 ML Magnesium Sulfate (MAGNESIUM SULFATE 4GM/SWFI 10 0ML) 100 ML ASDIR PRN IV Magnesium Sulfate (MAGNESIUM SULFATE 2GM/SWFI 50 ML) 50 ML ASDIR PRN IV Potassium Chloride (KCL 10MEQ/SWFI 50ML) 50 ML A SDIR PRN IV Sodium Chloride (SODIUM CHLORIDE 0.9%) 2,000 ML ASDIR PRN IV Sodium Phosphate (SODIUM PHOSPHATE) 25 MMOL ASDI R PRN IV Sodium Chloride (SODIUM CHLORIDE 0.9%) 250 ML Sodium Phosphate (SODIUM PHOSPHATE) 20 MMOL ASDI R PRN IV Sodium Chloride (SODIUM CHLORIDE 0.9%) 250 ML Sodium Phosphate (SODIUM PHOSPHATE) 15 MMOL ASDI R PRN IV Sodium Chloride (SODIUM CHLORIDE 0.9%) 250 ML Pantoprazole (PROTONIX) 40 MG DAILY@0600 PO Aspirin (ASPIRIN) 81 MG DAILY PO Vasopressin (VASOSTRICT 20 Unit/NS 100ML) 100 ML ASDIR IV (CKD) Docusate Sodium (COLACE) 100 MG BID PO Sennosides (Senna Lax 8.6 MG TABLET) 17.2 MG BED TIME PO Ipratropium [place] (ATROVENT) 500 MCG RTQ4H INH Acetaminophen (TYLENOL) 650 MG Q4H PRN PRN PO Acetaminophen (TYLENOL) 650 MG Q4H PRN PRN RECTA L Calcium Chloride (CALCIUM CHLORIDE) 1 GM ASDIR P RN IV Dextrose/Water (DEXTROSE 10% IN WATER) 125 ML DIR PRN IV (CKD) Dextrose/Water (DEXTROSE 10% IN WATER) 250 ML DIR PRN IV (CKD) Epinephrine (ADRENALIN CHLORIDE) 4 MG ASDIR IV Dextrose/Water (DEXTROSE 5% WATER) 246 ML Glucagon (GLUCAGON) 1 MG ASDIR PRN IM Magnesium Sulfate (MAGNESIUM SULFATE 4GM/SWFI 10 0ML) 100 ML ASDIR PRN IV Magnesium Sulfate (MAGNESIUM SULFATE 2GM/SWFI 50 ML) 50 ML ASDIR PRN IV Magnesium Sulfate/Dextrose (MAGNESIUM SULFATE 1G M/D5W 100ML) 100 ML ASDIR PRN IV Nitroglycerin/Dextrose (NITROGLYCERIN 50,000MCG/ D5W 250ML) 250 ML ASDIR IV Norepinephrine Bitartrate (NOREPINEPHRINE 8 MG/N S 250 ML) 250 ML TITRATE IV Ondansetron HCl (ZOFRAN) 4 MG Q6H PRN PRN IV Potassium Chloride (KCL 20MEQ/SWFI 100ML) 100 ML ASDIR PRN IV Sodium Bicarbonate (SODIUM BICARBONATE) 50 MEQ A SDIR PRN IV Albumin Human (ALBUMINAR-25%) 12.5 GM ASDIR PRN IV Heparin Sodium (Porcine) (HEPARIN SODIUM) 3,000 UNIT ASDIR PRN DIALYSIS Lidocaine HCl (LIDOCAINE HCL/PF) 0.5 ML ASDIR NV N I-DERMAL (CKD) Mannitol (Mannitol 20%) 12.5 GM ASDIR PRN IV Sodium Chloride (SODIUM CHLORIDE 0.9%) 2,000 ML ASDIR PRN IV Tamsulosin HCl (Flomax 0.4 mg) 0.4 MG BEDTIME PO Physical Exam General appearance: alert, awake, oriented Head/eyes: atraumatic, normocephalic ENT: moist mucous membranes, normal nose Neck: non-tender, no JVD Extremities: no edema, no swelling 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ALTH: alert, oriented X 3, normal speech Skin: dry, intact Results Findings/Data: Laboratory Tests 07/17 07/17 0320 0320 Chemistry Sodium (134 - 147 mEq/L) 143 Potassium (3.4 - 5.0 mEq/L) 3.9 Chloride (100 - 108 mEq/L) 107 Carbon Dioxide (21 - 33 mEq/l) 29 Anion Gap (0 - 20) 11 BUN (7 - 18 mg/dL) 33 H Creatinine (0.6 - 1.3 mg/dL) 3.5 H Glomerular Filtr Rate (70 - 80) 17.0 L Glucose (70 - 110 mg/dL) 113 H Calcium (8.0 - 10.5 mg/dL) 8.2 Magnesium (1.80 - 2.40 mg/dL) 2.00 Laboratory Tests 07/17 0320 Hematology WBC (4.5 - 11.0 x10 3/uL) 11.0 RBC (4.00 - 5.60 x10 6/uL) 2.81 L Hgb (12.5 - 16.9 g/dL) 8.3 L Hct (37.5 - 50.7 %) 26.6 L MCV (81.0 - 99.0 fL) 94.7 MCH (27.0 - 33.0 pg) 29.5 MCHC (33.0 - 37.0 g/dL) 31.2 L RDW (11.5 - 14.5 %) 16.1 H Plt Count (150 - 400 x10 3/uL) 321 MPV (7.0 - 9.0 fL) 10.1 H Neut % (Auto) (56.0 - 77.0 %) 71.6 Lymph % (Auto) (14.0 - 32.0 %) 7.2 L [place] % (Auto) (4.8 - 9.0 %) 11.0 H Eos % (Auto) (0.3 - 3.7 %) 6.8 H Baso % (Auto) (0.0 - 2.0 %) 0.6 Neut # (Auto) (2.0 - 7.6 x10 3/uL) 7.90 H Lymph # (Auto) (1.0 - 3.8 x10 3/uL) 0.80 L [place] # (Auto) (0.1 - 0.8 x10 3/uL) 1.21 H Eos # (Auto) (0.0 - 0.2 x10 3/uL) 0.75 H Baso # (Auto) (0.0 - 0.2 x10 3/uL) 0.07 Abs Immat Gran (auto) (0.00 - 0.03 x10 3/uL) 0. 31 H Add Manual Diff NO Immature Gran % (0.0 - 2.0 %) 2.8 H Nucleated RBC % (0 - 0 %) 0.0 Nucleated RBCs # (Man) (0.0 - 0.1 x10 3/uL) 0.0 0 Radiology data: Recent Impressions: RADIOLOGY - XR CHEST 1 V 07/17 0554 Report Impression - Status: SIGNED Entered: 07/17/2022 0757 IMPRESSION: 1. Stable postoperative cardiomediastinal silhou ette. 2. Stable pulmonary opacities. 3. Stable pleural effusions. Pleural fluid/thick ening extending over the left apex. No pneumothorax following th oracostomy tube removal. Impression By: Robert Ratliff M.D. ULTRASOUND - DUP VEIN WOJCIECH 07/17 1519 Report Impression - Status: SIGNED Entered: 07/17/2022 1545 IMPRESSION: No evidence of deep vein thrombosis. Superficial thrombus in the right greater saphen ous vein. Complex hypoechoic area in the right inguinal re gion without internal vascular flow or peripheral hyperemia m easuring 4.2 x 1.4 x 2.3 cm which may represent a hematoma. Impression By: Toro Palma M.D. Treatment Prophylaxis Treatment Prophylaxis Drain(s)/tube(s): Drain(s)/tube(s): chest Diagnosis, Assessment Plan Free Text A P: Assessment: 1-CLAUDETTE likely from urinary retention. oliguric AK I now post op, and shock! 2- non-STEMI: multivessel disease w main left. 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 Waters catheter is in place. 4-severe bilateral hydronephrosis 5- shock : Cardiogenic 6-hyperlipidemia 7- AGMA Plan: - unknown Scr baseline but ultrasound suggestive MRD. - Ultrasound showed severe bilateral hydronephro sis. Continue Waters catheter. Urology consulted. - He underwent LHC on 07/03. Started on HD on 06/09. - s/p CABG X5 on 07/08 -Excellent urine output after Lasix but no clear ance w acidosis and hyperkalemia. - stopped NaHCO3 as started on HD. -TDC placed 07/15. plan for HD again on 07/16. no HD today. - repeat labs in am and assess need for HD. stble from nephrology for discharge to SNF Consultants: cardiology, cardiovascular surgery, nephrology Electronically Signed by Evelina Plaza MD on 02/28 at 1816 RPT #:[id number] END OF REPORT 2022-07-17 12:45:00-00:00 [facility]) Critical Care Progress Note REPORT#:[id number] REPORT STATUS: Signed DATE:07/17/22 TIME: 1245 PATIENT: SHERRI ARCE UNIT #: [id number] ROOM/BED: [place] [address] : 42 AGE: 81 SEX: M ATTEND: Que Mcarthur MD ADM AUTHOR: Jana Mittal MD * ALL edits or amendments must be made on the [email or web address] document * Subjective Chief complaint: CABG HPI: This is 81 years old male with medical history s ignificant for HTN and dyslipidemia [facility] with chest pain and found to have a NSTEMI and also acute r enal failure. He underwent cardiac cath and was found to have sever e CAD including left main disease with EF of 30 to 35% and ischemic cardiomyopathy. Transfer here for CABG evaluation. CV surgery were consulted an d the patient earlier today underwent CABG x 5 (MISTRY -LAD, SVG-Ladonna, SVG-OM1< SVG-OM3, SVG-PDA) and AL AA. His intraoperative course was without significant occurrence. The patient was brought to CVICU intubated and ventilated on milrinone drip, norepinephrine drip, epinephrine drip and vasopressin drip. His initial ABG showed metabolic acidosi s and he received 2 A of sodium bicarb and 1 g of calcium. The patient started to wake up later in the even ing but he looked weak, so he was reversed with neostigmine and glycopyrrolate . His motor strength improved significantly after that and his spontaneous lenard athing trial was good on the following ABG showed some metabolic acid osis. The patient will be extubated to a BiPAP as his CO2 was high on the ABG. Comments: Interval history- Patient waiting for SNF , The SNF the family had accepted does not have a dialysis chair. New placement has been initiated with ed case manager Objective General VS/I O Last Documented: Result Date Time Temp 36.7 07/17 899 Pulse Ox 92 07/17 0735 O2 Delivery Room air 07/17 0735 B/P 124/65 07/16 1902 Pulse 92 07/16 1902 Resp 22 07/16 1902 B/P Mean 86 07/16 1700 FiO2 21 07/16 1535 O2 Flow Rate 3 07/14 1151 24 hour I O ending at 0700: 07/17 0700 07/16 1900 Intake Total 750 1060.00 Output Total 1075 950 Balance -325 110.00 Intake, 0 Hemodialysis Intake, IV 100.00 Intake, Oral 750 960 Number 1 Bowel Movements Output, Urine 1075 950 Patient 88.8 kg Weight Weight Standing scale Measurement Method PATIENT WEIGHT: Weight (lb): 195 Weight (oz): 12.33 Weight (kg): 88.800 Medications: Active Meds + DC'd Last 24 Hrs Sodium Chloride (SODIUM CHLORIDE) 10 ML ASDIR IV Potassium Chloride (POTASSIUM CHLORIDE 10 MEQ TA B.ER) 10 MEQ ONCE ONE PO (DC) Amiodarone HCl (CORDARONE) 200 MG BID PO Cefazolin Sodium (KEFZOL OR ANCEF) 2 GM PREOP IVF EMBRYOLOGIST IV (DC) Albumin Human (ALBUMINAR-25%) 12.5 GM ASDIR PRN IV Sodium Chloride (SODIUM CHLORIDE) 10 ML ASDIR NV N IV Midodrine (PROAMATINE) 10 MG 0900,1300,1700 PO Sodium Chloride (SODIUM CHLORIDE) 20 ML ASDIR IV (DC) Ipratropium Kersey (ATROVENT) 500 MCG RTQ2H PRN PRN INH Lactulose (LACTULOSE) 20 GM DAILY PRN PRN PO Cyanocobalamin (Vitamin B-12 500 mcg tab) 500 MC G DAILY PO Ferrous Sulfate (FERROUS SULFATE) 325 MG DAILY P O Dopamine HCl/Dextrose (DOPamine 400MG/D5W 250ML) 250 ML ASDIR IV Bisacodyl (DULCOLAX) 10 MG ONCE PRN RECTAL Atorvastatin Calcium (LIPITOR) 40 MG 2100 PO Clopidogrel Bisulfate (Plavix) 75 MG DAILY PO Polyethylene Glycol (MIRALAX) 17 GM DAILY PO Calcium Chloride (CALCIUM CHLORIDE) 1 GM ASDIR P RN IV Sodium Chloride (SODIUM CHLORIDE 0.9%) 100 ML Calcium Chloride (CALCIUM CHLORIDE) 2 GM ASDIR P RN IV Sodium Chloride (SODIUM CHLORIDE 0.9%) 100 ML Magnesium Sulfate (MAGNESIUM SULFATE 4GM/SWFI 10 0ML) 100 ML ASDIR PRN IV Magnesium Sulfate (MAGNESIUM SULFATE 2GM/SWFI 50 ML) 50 ML ASDIR PRN IV Potassium Chloride (KCL 10MEQ/SWFI 50ML) 50 ML A SDIR PRN IV Sodium Chloride (SODIUM CHLORIDE 0.9%) 2,000 ML ASDIR PRN IV Sodium Phosphate (SODIUM PHOSPHATE) 25 MMOL ASDI R PRN IV Sodium Chloride (SODIUM CHLORIDE 0.9%) 250 ML Sodium Phosphate (SODIUM PHOSPHATE) 20 MMOL ASDI R PRN IV Sodium Chloride (SODIUM CHLORIDE 0.9%) 250 ML Sodium Phosphate (SODIUM PHOSPHATE) 15 MMOL ASDI R PRN IV Sodium Chloride (SODIUM CHLORIDE 0.9%) 250 ML Pantoprazole (PROTONIX) 40 MG DAILY@0600 PO Aspirin (ASPIRIN) 81 MG DAILY PO Vasopressin (VASOSTRICT 20 Unit/NS 100ML) 100 M L ASDIR IV (CKD) Docusate Sodium (COLACE) 100 MG BID PO Sennosides (Senna Lax 8.6 MG TABLET) 17.2 MG BED TIME PO Ipratropium Kersey (ATROVENT) 500 MCG RTQ4H INH Acetaminophen (TYLENOL) 650 MG Q4H PRN PRN PO Acetaminophen (TYLENOL) 650 MG Q4H PRN PRN RECTA L Calcium Chloride (CALCIUM CHLORIDE) 1 GM ASDIR PRN IV Dextrose/Water (DEXTROSE 10% IN WATER) 125 ML DIR PRN IV (CKD) Dextrose/Water (DEXTROSE 10% IN WATER) 250 ML DIR PRN IV (CKD) Epinephrine (ADRENALIN CHLORIDE) 4 MG ASDIR IV Dextrose/Water (DEXTROSE 5% WATER) 246 ML Glucagon (GLUCAGON) 1 MG ASDIR PRN IM Magnesium Sulfate (MAGNESIUM SULFATE 4GM/SWFI 10 0ML) 100 ML ASDIR PRN IV Magnesium Sulfate (MAGNESIUM SULFATE 2GM/SWFI 50 ML) 50 ML ASDIR PRN IV Magnesium Sulfate/Dextrose (MAGNESIUM SULFATE 1G M/D5W 100ML) 100 ML ASDIR PRN IV Nitroglycerin/Dextrose (NITROGLYCERIN 50,000MCG/ D5W 250ML) 250 ML ASDIR IV Norepinephrine Bitartrate (NOREPINEPHRINE 8 MG/N S 250 ML) 250 ML TITRATE IV Ondansetron HCl (ZOFRAN) 4 MG Q6H PRN PRN IV Potassium Chloride (KCL 20MEQ/SWFI 100ML) 100 ML ASDIR PRN IV Sodium Bicarbonate (SODIUM BICARBONATE) 50 MEQ A SDIR PRN IV Albumin Human (ALBUMINAR-25%) 12.5 GM ASDIR PRN IV Heparin Sodium (Porcine) (HEPARIN SODIUM) 3,000 UNIT ASDIR PRN DIALYSIS Lidocaine HCl (LIDOCAINE HCL/PF) 0.5 ML ASDIR NV N I-DERMAL (CKD) Mannitol (Mannitol 20%) 12.5 GM ASDIR PRN IV Sodium Chloride (SODIUM CHLORIDE 0.9%) 2,000 ML ASDIR PRN IV Tamsulosin HCl (Flomax 0.4 mg) 0.4 MG BEDTIME PO Results Findings/data: Laboratory Tests 07/17 07/17 0320 0320 Chemistry Sodium (134 - 147 mEq/L) 143 Potassium (3.4 - 5.0 mEq/L) 3.9 Chloride (100 - 108 mEq/L) 107 Carbon Dioxide (21 - 33 mEq/l) 29 Anion Gap (0 - 20) 11 BUN (7 - 18 mg/dL) 33 H Creatinine (0.6 - 1.3 mg/dL) 3.5 H Glomerular Filtr Rate (70 - 80) 17.0 L Glucose (70 - 110 mg/dL) 113 H Calcium (8.0 - 10.5 mg/dL) 8.2 Magnesium (1.80 - 2.40 mg/dL) 2.00 Laboratory Tests 07/17 0320 Hematology WBC (4.5 - 11.0 x10 3/uL) 11.0 RBC (4.00 - 5.60 x10 6/uL) 2.81 L Hgb (12.5 - 16.9 g/dL) 8.3 L Hct (37.5 - 50.7 %) 26.6 L MCV (81.0 - 99.0 fL) 94.7 MCH (27.0 - 33.0 pg) 29.5 MCHC (33.0 - 37.0 g/dL) 31.2 L RDW (11.5 - 14.5 %) 16.1 H Plt Count (150 - 400 x10 3/uL) 321 MPV (7.0 - 9.0 fL) 10.1 H Neut % (Auto) (56.0 - 77.0 %) 71.6 Lymph % (Auto) (14.0 - 32.0 %) 7.2 L [place] % (Auto) (4.8 - 9.0 %) 11.0 H Eos % (Auto) (0.3 - 3.7 %) 6.8 H Baso % (Auto) (0.0 - 2.0 %) 0.6 Neut # (Auto) (2.0 - 7.6 x10 3/uL) 7.90 H Lymph # (Auto) (1.0 - 3.8 x10 3/uL) 0.80 L [place] # (Auto) (0.1 - 0.8 x10 3/uL) 1.21 H Eos # (Auto) (0.0 - 0.2 x10 3/uL) 0.75 H Baso # (Auto) (0.0 - 0.2 x10 3/uL) 0.07 Abs Immat Gran (auto) (0.00 - 0.03 x10 3/uL) 0. 31 H Add Manual Diff NO Immature Gran % (0.0 - 2.0 %) 2.8 H Nucleated RBC % (0 - 0 %) 0.0 Nucleated RBCs # (Man) (0.0 - 0.1 x10 3/uL) 0.0 0 Laboratory Tests 07/17/22 0320: [Embedded Image Not Available] Radiology data Recent Impressions: RADIOLOGY - XR CHEST 1 V 07/17 0554 Report Impression - Status: SIGNED Entered: 07/17/2022 0757 IMPRESSION: 1. Stable postoperative cardiomediastinal silhou ette. 2. Stable pulmonary opacities. 3. Stable pleural effusions. Pleural fluid/thick ening extending over the left apex. No pneumothorax following th oracostomy tube removal. Impression By: Robert Ratliff M.D. 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 CLAUDETTE (acute kidney injury) 2. CAD (coronary artery disease) 3. Goiter 4. BPH (benign prostatic hyperplasia) 5. Dyslipidemia 6. HTN (hypertension) Free text A P: 73-year-old male with Acute pulmonary insufficiency following thoracic surgery Status post CABG x 5 (MISTRY-LAD, SVG-Ladonna, SVG-OM1 < SVG-OM3, SVG-PDA) and ALAA Acute blood loss anemia Hypotension Ischemic cardiomyopathy, EF 30 to 34% Multivessel CAD CLAUDETTE on hemodialysis Continue mechanical ventilation, vent settings r eviewed Titrate FiO2 to keep saturation more than 90%. Spontaneous breathing trial as soon as possible Wean to extubate Follow ABGs and CXRs ABG shows metabolic acidosis. Patient re ceived 2 A of sodium bicarb and 1 g of calcium Keep off sedation Judicious pain control Milrinone drip 0.25 Epinephrine drip Norepinephrine drip Vasopressin drip Titrate drips to keep MAP more than 65 Wean milrinone off first per CV surgery Minimize fluids per CV surgery Aspirin and Plavix Atorvastatin Metoprolol Follow lactate level Monitor chest tube output Hemodialysis per nephrology Monitor urine output and kidney function Monitor and replete electrolytes Perioperative antibiotics Cardiac diet with bowel regimen once extubated BG control with insulin gtt per protocol PT/OT VTE prophylaxis. Stress ulcer prophylaxis. Discussed with CV surgery, anesthesia and ICU te am Critical care time 85 minutes 07/09 Appears neuro intact, multimodal pain control, m inimize narcotic use, no CO2 narcosis Extubated successfully, sats well on NC, wean O2 , monitor for hypercapnia, encourage I-S, obtain serial ABGs, CXR reviewed HD unstable, weaning vasopre ssors and inotrope, monitor HD parameters, low CVP, lactic acidosis with uptrending lactate, gentle volume resuscitation Oliguric CLAUDETTE, plan for CRRT per renal, h yperkalemia treated, obtain serial lab PO challenge, bowel regimen, serial abdominal ex am, monitor LFTs Leukocytosis postop, likely reactive, trend WBC, s/p antibiotic course for UTI , periop antibiotics Hgb trending down, no eviden ce of active bleed, monitor CTs output, RBC given HD instability Blood glucose control with insulin drip per prot ocol Encourage PT/OT and activity as tolerated DVT and GI prophylaxis with DAPT and PPI 2/2 Appears neuro intact, multimodal pain control, m inimize narcotic use sats well on NC, wean O2, encourage I-S, ABG and CXR reviewed HD fairly stable, on minimal vasopressor support , lactic acidosis cleared s/p resuscitation Oliguric CLAUDETTE, tolerated CRRT, holding off per re nal, monitor UOP and electrolytes closely Oral diet as tolerated, bowel regimen, monitor L FTs Leukocytosis postop, trend WBC, treated for UTI preop Hgb responded to PRBC, no evidence of active ble ed, minimal CTs output Blood glucose control, transitioned insulin drip to SSI Encourage PT/OT and out of bed as tolerated DVT and GI prophylaxis with DAPT and PPI 2/3 Remains neuro intact, pain appears well controll ed Sats well on NC, wean O2, encourage I-S, ABG and CXR reviewed HD unstable, remains on minimal vasopressor supp ort, attempt to wean, start midodrine Oliguric CLAUDETTE, off CRRT per r enal, minimal UOP, started renal dose dopamine drip Tolerating oral diet, continue bowel regimen, LF Ts normalized Leukocytosis postop, continue to trend WBC, keira georgi for UTI preop Hgb stable s/p PRBC, no evidence of active bleed , monitor pCT output Blood glucose control with sliding scale insulin Encourage PT/OT and out of bed as tolerated, CM for dispo plan DVT and GI prophylaxis with DAPT and PPI 2/4 Remains neuro intact, pain appears well controll ed Sats well on NC, wean O2, encourage I-S, ABG and CXR reviewed HD unstable, weaning vasopressors, increase mido drine dose, remains in SR CLAUDETTE, likely postrenal, improved UOP, HD today pe r renal, hyperkalemia treated Tolerating oral diet, has bowel movement and bow el regimen, LFTs normalized Leukocytosis, WBC trending d own, currently off antibiotics s/p treatment for UTI Hgb remains stable s/p PRBC, no evidence of acti ve bleed, minimal CT output Blood glucose control with sliding scale insulin Encourage PT/OT and out of bed as tolerated, CM for dispo plan, IPR consulted DVT and GI prophylaxis with DAPT and PPI 2/ Remains neuro intact, pain appears well controll ed Sats well, wean O2, encourage I-S, ABG and CXR r eviewed, has left PTX HD stable off vasopressors, increased midodrine dose CLAUDETTE, likely postrenal, makin g urine, HD per renal, renal US with hydronephrosis Tolerating oral diet, has bowel movement and bow el regimen Leukocytosis, WBC trending down, monitor off antibiotics s/p treatment for UTI Hgb remains stable s/p PRBC, no evidence of acti ve bleed, keep CT to suction Blood glucose control with sliding scale insulin Tolerating PT/OT, CM for dispo plan, IPR on boar d DVT and GI prophylaxis with DAPT and PPI 2/ Neuro Intact. Pain well controlled. Is off oxygen. On room air saturating more than 94%. Imaging chest x-ray reviewed. Still has a persistent left pneumothor ax. IR guided pigtail was placed today , CXR shows expansion of the lung Maintaining the blood pressure on midodrine 5 3 times daily. Making good urine. Monitor the potassium . As per renal we will see if he needs dialysis tomorrow then will need a tunneled cath eter. White count remained stable. No antibiotics. And bowel movement. Continue bowel regimen. Urology evaluation pending. PT OT. Pending rehab placement when medically re edith. 07/15 Neurologically intact. Pain is well controlled. He is on room air. Chest x-ray reviewed. Very small pneumothorax/. Does have bilateral pulmonary infiltrates. Continue pigtail to suction. Patient making good urine but his BUN/creatinine is still worsening. We will have tunneled dialysis catheter today. R enal following. Will discontinue Waters and monitor for trial of void if fails then will need Waters replaced back. Continue Flomax. Urology fo llowing. We will increase the midodrine to 10 3 times aleshia ly. Continue PT and PPI. SCDs for DVT prophylaxis. Disposition is SNF. 07/16 Neurologically intact pain well controlled. getting hemodialysis today. Chest x-ray and ABG personally reviewed. Repeat chest x-ray after clamping of the tube did not show any new pneumothorax. Ches t tube was removed. Patient continues to remain on room air. No signs of infection. Continue with midodrine. Underwent hemodialysis today. Tolerated well. DAPT and PPI for GI prophylaxis. SCDs. Disposition SNF in [place] close to home. [facility] silva for dialysis bed Daughter was updated about this plan by me. 07/17 Neurologically intact. Patient's pain well contr olled. On room air. Maintaining sats more than 94%. Will decrease midodrine to 5 3 times daily. No hemodialysis today. Discussed with renal. We will monitor for urine output and repeat BMP tomorrow and assess for dialysis. If any concern for fluid overload then to give L asix 60 IV one-time DAPT and PPI for GI prophylaxis. SCDs. Will get Doppler lower extremity study to rule o ut DVT. sr. manager corporate communications is working on S NF placement with Dialysis bed Close to the patient' s home. Transfer to floor Consultants: cardiology, cardiovascular surgery, nephrology Quality: Gen Med Crit Care VTE Prophylaxis VTE prophylaxis initiated: yes Electronically Signed by Jana Mittal MD on 0 07/17/22 at 1448 RPT #:[id number] END OF REPORT 2022-07-17 09:16:00-00:00 [facility] Cardiology Progress Note REPORT#:[id number] REPORT STATUS: Signed DATE:07/17/22 TIME: 09 PATIENT: SHERRI ARCE UNIT #: [id number] ROOM[facility]BED: [facility] : 42 AGE: 81 SEX: M ATTEND: Srinath Kaur MD ADM AUTHOR: Sonya Stacy CNP * ALL edits or amendments must be made on the [email or web address] document * Subjective Patient reports: No: complaints. Objective General VS/I O: 24 hour I O ending at 0700: 07/17 0700 07/16 1900 Intake Total 750 1060.00 Output Total 1075 950 Balance -325 110.00 Intake, 0 Hemodialysis Intake, IV 100.00 Intake, Oral 750 960 Number 1 Bowel Movements Output, Urine 1075 950 Patient 88.8 kg Weight Weight Standing scale Measurement Method Vital Signs: Date Time Temp Pulse Resp B/P B/P Pulse O2 O2 F low FiO2 Mean Ox Delivery Rate 07/17 0635 92 Room air / 2000 36.6 02/08 1953 95 Room air 02/ 1902 36.5 92 22 124/65 02/08 1700 79 26 121/63 86 95 02/08 1600 36.6 78 26 112/59 76 93 Room air 02/08 1600 78 26 112/59 80 93 02/08 1535 97 Room air 21 02 1530 79 25 109/60 78 93 02/08 1515 78 27 104/56 77 92 02/08 1500 36.4 75 24 110/55 02/08 1500 75 22 110/55 76 94 02/08 1400 82 28 104/58 78 92 02/08 1300 82 26 114/59 81 94 02/08 1200 36.4 78 26 112/58 76 94 Room air 02/08 1200 78 26 112/58 79 94 02/08 1139 100 Room air 21 02/08 1100 82 25 112/58 78 94 02/08 1000 83 28 103/58 78 92 PATIENT WEIGHT: Weight (lb): 195 Weight (oz): 12.33 Weight (kg): 88.800 Medications: Active Meds + DC'd Last 24 Hrs Potassium Chloride (POTASSIUM CHLORIDE 10 MEQ TA B.ER) 10 MEQ ONCE ONE PO (DC) Amiodarone HCl (CORDARONE) 200 MG BID PO Cefazolin Sodium (KEFZOL OR ANCEF) 2 GM PREOP IVF EMBRYOLOGIST IV (DC) Albumin Human (ALBUMINAR-25%) 12.5 GM ASDIR PRN IV Sodium Chloride (SODIUM CHLORIDE) 10 ML ASDIR NV N IV Midodrine (PROAMATINE) 10 MG 0900,1300,1700 PO Sodium Chloride (SODIUM CHLORIDE) 20 ML ASDIR IV (DC) Sodium Bicarbonate (SODIUM BICARBONATE) 650 MG B ID PO (DC) Ipratropium Kersey (ATROVENT) 500 MCG RTQ2H PRN PRN INH Lactulose (LACTULOSE) 20 GM DAILY PRN PRN PO Cyanocobalamin (Vitamin B-12 500 mcg tab) 500 MC G DAILY PO Ferrous Sulfate (FERROUS SULFATE) 325 MG DAILY P O Dopamine HCl/Dextrose (DOPamine 400MG/D5W 250ML) 250 ML ASDIR IV Bisacodyl (DULCOLAX) 10 MG ONCE PRN RECTAL Atorvastatin Calcium (LIPITOR) 40 MG 2100 PO Clopidogrel Bisulfate (Plavix) 75 MG DAILY PO Polyethylene Glycol (MIRALAX) 17 GM DAILY PO Calcium Chloride (CALCIUM CHLORIDE) 1 GM ASDIR P RN IV Sodium Chloride (SODIUM CHLORIDE 0.9%) 100 ML Calcium Chloride (CALCIUM CHLORIDE) 2 GM ASDIR P RN IV Sodium Chloride (SODIUM CHLORIDE 0.9%) 100 ML Magnesium Sulfate (MAGNESIUM SULFATE 4GM/SWFI 10 0ML) 100 ML ASDIR PRN IV Magnesium Sulfate (MAGNESIUM SULFATE 2GM/SWFI 50 ML) 50 ML ASDIR PRN IV Potassium Chloride (KCL 10MEQ/SWFI 50ML) 50 ML A SDIR PRN IV Sodium Chloride (SODIUM CHLORIDE 0.9%) 2,000 ML ASDIR PRN IV Sodium Phosphate (SODIUM PHOSPHATE) 25 MMOL ASDI R PRN IV Sodium Chloride (SODIUM CHLORIDE 0.9%) 250 ML Sodium Phosphate (SODIUM PHOSPHATE) 20 MMOL ASDI R PRN IV Sodium Chloride (SODIUM CHLORIDE 0.9%) 250 ML Sodium Phosphate (SODIUM PHOSPHATE) 15 MMOL ASDI R PRN IV Sodium Chloride (SODIUM CHLORIDE 0.9%) 250 ML Pantoprazole (PROTONIX) 40 MG DAILY@0600 PO Aspirin (ASPIRIN) 81 MG DAILY PO Vasopressin (VASOSTRICT 20 Unit/NS 100ML) 100 ML ASDIR IV (CKD) Docusate Sodium (COLACE) 100 MG BID PO Sennosides (Senna Lax 8.6 MG TABLET) 17.2 MG BED TIME PO Ipratropium Kersey (ATROVENT) 500 MCG RTQ4H INH Acetaminophen (TYLENOL) 650 MG Q4H PRN PRN PO Acetaminophen (TYLENOL) 650 MG Q4H PRN PRN RECTA L Calcium Chloride (CALCIUM CHLORIDE) 1 GM ASDIR P RN IV Dextrose/Water (DEXTROSE 10% IN WATER) 125 ML DIR PRN IV (CKD) Dextrose/Water (DEXTROSE 10% IN WATER) 250 ML DIR PRN IV (CKD) Epinephrine (ADRENALIN CHLORIDE) 4 MG ASDIR IV Dextrose/Water (DEXTROSE 5% WATER) 246 ML Glucagon (GLUCAGON) 1 MG ASDIR PRN IM Magnesium Sulfate (MAGNESIUM SULFATE 4GM/SWFI 10 0ML) 100 ML ASDIR PRN IV Magnesium Sulfate (MAGNESIUM SULFATE 2GM/SWFI 50 ML) 50 ML ASDIR PRN IV Magnesium Sulfate/Dextrose (MAGNESIUM SULFATE 1G M/D5W 100ML) 100 ML ASDIR PRN IV Nitroglycerin/Dextrose (NITROGLYCERIN 50,000MCG/ D5W 250ML) 250 ML ASDIR IV Norepinephrine Bitartrate (NOREPINEPHRINE 8 MG/N S 250 ML) 250 ML TITRATE IV Ondansetron HCl (ZOFRAN) 4 MG Q6H PRN PRN IV Potassium Chloride (KCL 20MEQ/SWFI 100ML) 100 ML ASDIR PRN IV Sodium Bicarbonate (SODIUM BICARBONATE) 50 MEQ A SDIR PRN IV Albumin Human (ALBUMINAR-25%) 12.5 GM ASDIR PRN IV Heparin Sodium (Porcine) (HEPARIN SODIUM) 3,000 UNIT ASDIR PRN DIALYSIS Lidocaine HCl (LIDOCAINE HCL/PF) 0.5 ML ASDIR NV N I-DERMAL (CKD) Mannitol (Mannitol 20%) 12.5 GM ASDIR PRN IV Sodium Chloride (SODIUM CHLORIDE 0.9%) 2,000 ML ASDIR PRN IV Tamsulosin HCl (Flomax 0.4 mg) 0.4 MG BEDTIME PO Status post: 07/08/22 CABG x 5 (MISTRY-LAD, SVG-Ladonna, SVG-OM1< SV G-OM3, SVG-PDA) ALAA Physical Exam General appearance: alert, awake Head/Eyes: atraumatic ENT: moist mucosal membranes Neck: no JVD Cardiovascular: CV assessment: pedal edema, regular rate and rh ythm, no murmur Respiratory: decreased breath sounds, no distres s Abdomen: soft, non-tender, normal bowel sounds, no distention, no guarding Upper extremity: UE assessment: normal temperature, no edema Lower extremity: LE assessment: edema (2 to 3+ pitting edema), n ormal temperature, no edema Musculoskeletal: normal inspection 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ALTH: alert, oriented X 3, normal speech Skin: dry Psychiatry: normal affect Results Findings/Data: Laboratory Tests 07/17 07/17 0320 0320 Chemistry Sodium (134 - 147 mEq/L) 143 Potassium (3.4 - 5.0 mEq/L) 3.9 Chloride (100 - 108 mEq/L) 107 Carbon Dioxide (21 - 33 mEq/l) 29 Anion Gap (0 - 20) 11 BUN (7 - 18 mg/dL) 33 H Creatinine (0.6 - 1.3 mg/dL) 3.5 H Glomerular Filtr Rate (70 - 80) 17.0 L Glucose (70 - 110 mg/dL) 113 H Calcium (8.0 - 10.5 mg/dL) 8.2 Magnesium (1.80 - 2.40 mg/dL) 2.00 Laboratory Tests 07/17 0320 Hematology WBC (4.5 - 11.0 x10 3/uL) 11.0 RBC (4.00 - 5.60 x10 6/uL) 2.81 L Hgb (12.5 - 16.9 g/dL) 8.3 L Hct (37.5 - 50.7 %) 26.6 L MCV (81.0 - 99.0 fL) 94.7 MCH (27.0 - 33.0 pg) 29.5 MCHC (33.0 - 37.0 g/dL) 31.2 L RDW (11.5 - 14.5 %) 16.1 H Plt Count (150 - 400 x10 3/uL) 321 MPV (7.0 - 9.0 fL) 10.1 H Neut % (Auto) (56.0 - 77.0 %) 71.6 Lymph % (Auto) (14.0 - 32.0 %) 7.2 L [place] % (Auto) (4.8 - 9.0 %) 11.0 H Eos % (Auto) (0.3 - 3.7 %) 6.8 H Baso % (Auto) (0.0 - 2.0 %) 0.6 Neut # (Auto) (2.0 - 7.6 x10 3/uL) 7.90 H Lymph # (Auto) (1.0 - 3.8 x10 3/uL) 0.80 L [place] # (Auto) (0.1 - 0.8 x10 3/uL) 1.21 H Eos # (Auto) (0.0 - 0.2 x10 3/uL) 0.75 H Baso # (Auto) (0.0 - 0.2 x10 3/uL) 0.07 Abs Immat Gran (auto) (0.00 - 0.03 x10 3/uL) 0. 31 H Add Manual Diff NO Immature Gran % (0.0 - 2.0 %) 2.8 H Nucleated RBC % (0 - 0 %) 0.0 Nucleated RBCs # (Man) (0.0 - 0.1 x10 3/uL) 0.0 0 Laboratory Tests 07/17 0320 Chemistry Magnesium (1.80 - 2.40 mg/dL) 2.00 Radiology data: Recent Impressions: RADIOLOGY - XR CHEST 1 V 07/16 1055 Report Impression - Status: SIGNED Entered: 07/16/2022 1158 IMPRESSION: 1. Small left and stable small right layering pl eural effusion. 2. Left chest tube present. No pneumothorax. 3. Stable bibasilar airspace opacities Impression By: [email or web address] Noreen Dasilva RADIOLOGY - XR CHEST 1 V 07/17 0554 Report Impression - Status: SIGNED Entered: 07/17/2022 0757 IMPRESSION: 1. Stable postoperative cardiomediastinal silhou ette. 2. Stable pulmonary opacities. 3. Stable pleural effusions. Pleural fluid/thick ening extending over the left apex. No pneumothorax following th oracostomy tube removal. Impression By: Robert Ratliff M.D. Results: labs reviewed, vital signs reviewed Telemetry Interpretation: sinus rhythm Diagnosis, Assessment Plan Problem List/A P: 1. HTN (hypertension) 2. CLAUDETTE (acute kidney injury) 3. CAD (coronary artery disease) 4. Dyslipidemia 5. BPH (benign prostatic hyperplasia) Plan discussed with: patient, nurse Free Text DxA P Notes Free Text DxA P Notes: Mr. Arce is a pleasant 81 y/o M w/ PMHx: HTN, HLD presented to [facility] on 06/28/22 for chest pa in and sob. He was diagnosed NSTEMI. LHC showed multivessel CAD. Transferred to [facility] for CABG. 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 urology consulted for bladded outlet obstructio n and hydronephrosis, started on Flomax creatinine trending done after being started on HD HD per nephro - HTN. hypotension post-op, BP Stable on midodrine off Pressors. Midodrine 10 mg po tid. - HLD. On statins. - Anemia. monitor Dong well today. at 1245 Electronically Signed by Liset Ennis MD on at 1059 RPT #:[id number] END OF REPORT 2022-07-17 07:32:00-00:00 [facility] ([facility]) Cardiothoracic Surgery Prog REPORT#:[id number] REPORT STATUS: Signed DATE:07/17/22 TIME: 731 PATIENT: SHERRI ARCE UNIT #: [id number] ROOM/BED: [place] [id number] : 42 AGE: 81 SEX: M ATTEND: Srinath Kaur MD ADM AUTHOR: Gianna Hoover * ALL edits or amendments must be made on the el ectronic/computer document * General Post-op: day 9 Status post: 07/08/22 CABG x 5 (MISTRY-LAD, SVG-Ladonna, SVG-OM1< SVG-OM3, SVG-PDA) ALAA EVH (RGSV) Subjective Chief complaint: s/p CABG no complaints Review of Systems Constitutional: Denies: chills, fever, malaise. Allergy/Immun: Denies: allergic reaction. Respiratory: Denies: SOB. Cardiovascular: Denies: chest pain, palpitations. GI: Denies: abdominal pain, nausea, vomiting. : Denies: dysuria, hematuria. Heme: Denies: bleeding. Neuro: Denies: dizziness, headache, vision change. All systems rev neg: except as marked Objective General VS/I O Last Documented: Result Date Time Temp 97.8 07/16 2000 Pulse Ox 95 07/16 1952 O2 Delivery Room air 07/16 1952 B/P 124/65 07/16 1901 Pulse 92 07/16 1902 Resp 22 07/16 190 B/P Mean 86 07/16 1700 FiO2 21 07/16 1535 O2 Flow Rate 3 07/14 1151 24 hour I O ending at 0700: 07/17 0700 07/16 1900 Intake Total 0 1060.00 Output Total 950 Balance 0 110.00 Intake, 0 Hemodialysis Intake, IV 100.00 Intake, Oral 960 Output, Urine 950 PATIENT WEIGHT: Weight (lb): 200 Weight (oz): 13.46 Weight (kg): 91.100 Dietitian Nutrition assessment The data set between the solid lines has been im ported from the dietitian's assessment. BMI Calculated: 27.2 Nutrition related diagnosis: Nutrition diagnosis details: Nutrition problem: Increased nutrient needs Nutrition etiology: Chronic disease Nutrition signs and symptoms: ESTIMATED NEEDS S/ P CABG Nutrition prescription: 1. RECOMMEND CONTINUE RE NAL DIET. 2. CONTINUE NEPRO BID. 3. MONITOR PO, WT, LABS, BM. Dietitian name: Trang Rodriguez, DIET Assessment completed: 07/16/22 Physical Exam General appearance: alert, awake, oriented Wound/incision: Location: sternal Site condition: edges approximated, incision in tact HEENT: anicteric, mucosal membranes moist Neck: supple/no meningismus Cardiovascular: normal heart sounds, regular rat e rhythm Respiratory: aerating well, symmetric expansion, no distress Abdomen: soft, non-tender, no distention Genitourinary: no waters Extremities: moves all 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ALTH: alert, oriented X 3, normal speech, n o motor deficits Psychiatry: normal affect, normal mood Current Medications Medications: Active Meds + DC'd Last 24 Hrs Potassium Chloride (POTASSIUM CHLORIDE 10 MEQ TA B.ER) 10 MEQ ONCE ONE PO (DC) Amiodarone HCl (CORDARONE) 200 MG BID PO Cefazolin Sodium (KEFZOL OR ANCEF) 2 GM PREOP IVF EMBRYOLOGIST IV (DC) Albumin Human (ALBUMINAR-25%) 12.5 GM ASDIR PRN IV Sodium Chloride (SODIUM CHLORIDE) 10 ML ASDIR NV N IV Midodrine (PROAMATINE) 10 MG 0900,1300,1700 PO Sodium Chloride (SODIUM CHLORIDE) 20 ML ASDIR IV (DC) Sodium Bicarbonate (SODIUM BICARBONATE) 650 MG B ID PO (DC) Ipratropium Kersey (ATROVENT) 500 MCG RTQ2H PRN PRN INH Lactulose (LACTULOSE) 20 GM DAILY PRN PRN PO Cyanocobalamin (Vitamin B-12 500 mcg tab) 500 MC G DAILY PO Ferrous Sulfate (FERROUS SULFATE) 325 MG DAILY P O Dopamine HCl/Dextrose (DOPamine 400MG/D5W 250ML) 250 ML ASDIR IV Bisacodyl (DULCOLAX) 10 MG ONCE PRN RECTAL Atorvastatin Calcium (LIPITOR) 40 MG 2100 PO Clopidogrel Bisulfate (Plavix) 75 MG DAILY PO Polyethylene Glycol (MIRALAX) 17 GM DAILY PO Calcium Chloride (CALCIUM CHLORIDE) 1 GM ASDIR P RN IV Sodium Chloride (SODIUM CHLORIDE 0.9%) 100 ML Calcium Chloride (CALCIUM CHLORIDE) 2 GM ASDIR P RN IV Sodium Chloride (SODIUM CHLORIDE 0.9%) 100 ML Magnesium Sulfate (MAGNESIUM SULFATE 4GM/SWFI 10 0ML) 100 ML ASDIR PRN IV Magnesium Sulfate (MAGNESIUM SULFATE 2GM/SWFI 50 ML) 50 ML ASDIR PRN IV Potassium Chloride (KCL 10MEQ/SWFI 50ML) 50 ML A SDIR PRN IV Sodium Chloride (SODIUM CHLORIDE 0.9%) 2,000 ML ASDIR PRN IV Sodium Phosphate (SODIUM PHOSPHATE) 25 MMOL ASDI R PRN IV Sodium Chloride (SODIUM CHLORIDE 0.9%) 250 ML Sodium Phosphate (SODIUM PHOSPHATE) 20 MMOL ASDI R PRN IV Sodium Chloride (SODIUM CHLORIDE 0.9%) 250 ML Sodium Phosphate (SODIUM PHOSPHATE) 15 MMOL ASDI R PRN IV Sodium Chloride (SODIUM CHLORIDE 0.9%) 250 ML Pantoprazole (PROTONIX) 40 MG DAILY@0600 PO Aspirin (ASPIRIN) 81 MG DAILY PO Vasopressin (VASOSTRICT 20 Unit/NS 100ML) 100 ML ASDIR IV (CKD) Docusate Sodium (COLACE) 100 MG BID PO Sennosides (Senna Lax 8.6 MG TABLET) 17.2 MG BED TIME PO Ipratropium Kersey (ATROVENT) 500 MCG RTQ4H INH Acetaminophen (TYLENOL) 650 MG Q4H PRN PRN PO Acetaminophen (TYLENOL) 650 MG Q4H PRN PRN RECTA L Calcium Chloride (CALCIUM CHLORIDE) 1 GM ASDIR P RN IV Dextrose/Water (DEXTROSE 10% IN WATER) 125 ML A SDIR PRN IV (CKD) Dextrose/Water (DEXTROSE 10% IN WATER) 250 ML DIR PRN IV (CKD) Epinephrine (ADRENALIN CHLORIDE) 4 MG ASDIR IV Dextrose/Water (DEXTROSE 5% WATER) 246 ML Glucagon (GLUCAGON) 1 MG ASDIR PRN IM Magnesium Sulfate (MAGNESIUM SULFATE 4GM/SWFI 10 0ML) 100 ML ASDIR PRN IV Magnesium Sulfate (MAGNESIUM SULFATE 2GM/SWFI 50 ML) 50 ML ASDIR PRN IV Magnesium Sulfate/Dextrose (MAGNESIUM SULFATE 1G M/D5W 100ML) 100 ML ASDIR PRN IV Nitroglycerin/Dextrose (NITROGLYCERIN 50,000MCG/ D5W 250ML) 250 ML ASDIR IV Norepinephrine Bitartrate (NOREPINEPHRINE 8 MG/N S 250 ML) 250 ML TITRATE IV Ondansetron HCl (ZOFRAN) 4 MG Q6H PRN PRN IV Potassium Chloride (KCL 20MEQ/SWFI 100ML) 100 ML ASDIR PRN IV Sodium Bicarbonate (SODIUM BICARBONATE) 50 MEQ A SDIR PRN IV Albumin Human (ALBUMINAR-25%) 12.5 GM ASDIR PRN IV Heparin Sodium (Porcine) (HEPARIN SODIUM) 3,000 UNIT ASDIR PRN DIALYSIS Lidocaine HCl (LIDOCAINE HCL/PF) 0.5 ML ASDIR NV N I-DERMAL (CKD) Mannitol (Mannitol 20%) 12.5 GM ASDIR PRN IV Sodium Chloride (SODIUM CHLORIDE 0.9%) 2,000 ML ASDIR PRN IV Tamsulosin HCl (Flomax 0.4 mg) 0.4 MG BEDTIME PO Results Findings/Data: Laboratory Tests 07/17 07/17 0320 0320 Chemistry Sodium (134 - 147 mEq/L) 143 Potassium (3.4 - 5.0 mEq/L) 3.9 Chloride (100 - 108 mEq/L) 107 Carbon Dioxide (21 - 33 mEq/l) 29 Anion Gap (0 - 20) 11 BUN (7 - 18 mg/dL) 33 H Creatinine (0.6 - 1.3 mg/dL) 3.5 H Glomerular Filtr Rate (70 - 80) 17.0 L Glucose (70 - 110 mg/dL) 113 H Calcium (8.0 - 10.5 mg/dL) 8.2 Magnesium (1.80 - 2.40 mg/dL) 2.00 Laboratory Tests 07/17 0320 Hematology WBC (4.5 - 11.0 x10 3/uL) 11.0 RBC (4.00 - 5.60 x10 6/uL) 2.81 L Hgb (12.5 - 16.9 g/dL) 8.3 L Hct (37.5 - 50.7 %) 26.6 L MCV (81.0 - 99.0 fL) 94.7 MCH (27.0 - 33.0 pg) 29.5 MCHC (33.0 - 37.0 g/dL) 31.2 L RDW (11.5 - 14.5 %) 16.1 H Plt Count (150 - 400 x10 3/uL) 321 MPV (7.0 - 9.0 fL) 10.1 H Neut % (Auto) (56.0 - 77.0 %) 71.6 Lymph % (Auto) (14.0 - 32.0 %) 7.2 L [place] % (Auto) (4.8 - 9.0 %) 11.0 H Eos % (Auto) (0.3 - 3.7 %) 6.8 H Baso % (Auto) (0.0 - 2.0 %) 0.6 Neut # (Auto) (2.0 - 7.6 x10 3/uL) 7.90 H Lymph # (Auto) (1.0 - 3.8 x10 3/uL) 0.80 L [place] # (Auto) (0.1 - 0.8 x10 3/uL) 1.21 H Eos # (Auto) (0.0 - 0.2 x10 3/uL) 0.75 H Baso # (Auto) (0.0 - 0.2 x10 3/uL) 0.07 Abs Immat Gran (auto) (0.00 - 0.03 x10 3/uL) 0. 31 H Add Manual Diff NO Immature Gran % (0.0 - 2.0 %) 2.8 H Nucleated RBC % (0 - 0 %) 0.0 Nucleated RBCs # (Man) (0.0 - 0.1 x10 3/uL) 0.0 0 Radiology data: Recent Impressions: RADIOLOGY - XR CHEST 1 V 07/16 1055 Report Impression - Status: SIGNED Entered: 07/16/2022 1158 IMPRESSION: 1. Small left and stable small right layering pl eural effusion. 2. Left chest tube present. No pneumothorax. 3. Stable bibasilar airspace opacities Impression By: [email or web address] - Noreen Lambert Results: labs reviewed, vital signs stable, danilo turcios personally rev'd, x-ray personally reviewed, current med profile rev'd Quality: Trauma Gen Surg Advanced Care Plan 65 or Older Discussed with: patient Discussion included: living will (none), power of employment law attorney (none), code status ( full code) VTE Prophylaxis - General VTE prophylaxis initiated: yes Diagnosis, Assessment Plan Hospital course to date: This is a 81-year-old gentleman who presented to an outside hospital with complaints of chest pains while walking at his home on Thursday. He denies any previous history of coronary artery disease or o ther NE. He was seen and evaluated at [facility]. He was found to have a urinary tract infection with urinary retention and acute kidne y. He was started on dialysis via a left femoral temporary catheter. He underw ent dialysis on Thursday, Thursday. Renal has been consulted During his work-up at outside hospital he underw ent Left heart catheterization showing sever e Left Main 70%. LAD: Proximal diffuse 80% stenosis and then diffuse 60% in the midsegment and on the distal segment, there is focal 70% stenosis. Diagonal branches w ith luminal irregularities. Left circumflex, codominant circulation with pro ximal 80%, mid 80 to 90% and then in the OM, there is proximal 60%, distal le ft circumflex has a 70% stenosis. RCA large and dominant with proximal 4 0% stenosis, mid 60% stenosis and then diffuse 50% stenosi s all the way distally and the PLV and the PDA with luminal irregularities. CV surgery consulted for evaluation for coronary bypass graft. CAROTIDS - No carotid stenosis CT chest complete IMPRESSION: Small bilateral pleural effusions with bibasila r atelectasis. Echo: 1. Left ventricle: The cavity size is at the upp er limits of normal. Wall thickness is mildly increased. Systolic fu nction is severely reduced. The estimated ejection fraction is 30- 34%. Moderate hypokinesis of the entire myocardium. Doppler p arameters are consistent with abnormal left ventricular relax ation (grade 1 diastolic dysfunction). 2. Pericardium, extracardiac: A small pericardia l effusion is identified along the left ventricular free wall, along th e right ventricular free wall, and along the right atrial free wall . Assessment/Plan 1) CAD Mutlivessel Will obtain echo,carotids. 2) CLAUDETTE Started dialysis on Creatine 7.3 Renal consulted. 3) BPH- Urinary retention. Waters in place Workup for CABG underway. Will get functional assessment with PT. PFT pending Carotid dopplers- No disease Echo Pending Dialyiss per Renal. Baseline Cr unknown. 07/04 07/04 Doing well today, alert, up in the chair. Denies chest pain Echocardiogram showed LVEF 30 to 34%, mild MR, t rivial TR CT chest images reviewed Encourage I-S and mobilization Creatinine 5.5 from 7.3, good urine output. Pao l US showed bilateral severe hydronephrosis. Plan for HD today and tomorrow Will tentatively schedule patient for surgery on Thursday. Patient seen and plan reviewed with Dr Schwarz 07/05 Remains in a stable condition, denies chest pain BUN 53, creatinine 5.4. Plan for hemodia lysis today and tomorrow for clearance He is also on Lasix 20 mg IV twice daily, urine output 1.1 L overnight We will calculate risk of surgery with STS score Encourage I-S and mobilization Will tentatively schedule patient for surgery on Thursday. Pt seen and plan reviewed with Dr Schwarz 07/06 BUN 36, creatinine 4.4. Plan for hemodialysis to day Awaiting CABG tomorrow Surgery, risks involved, STS score, benefits, co mplications and alternatives were explained to the patient. He acknow ledged understanding and is willing to proceed N.p.o. after midnight Patient seen and plan reviewed with Dr. Schwarz 07/09/22 POD 1 CABG x 5 (MISTRY-LAD, SVG-Ladonna, SVG-OM1< SVG-OM3, S VG-PDA), ALAA, EVH (RGSV) Patient hemodynamically unstable, on epi at 4, a nd vaso .04, decreased uop overnight- 150cc Started patient on CRRT 2k/3.5 Wean epi as tolerated, Cardiac incex 2.8-3 labs and chest x-ray reviewed, electroly marcie stable, hgb 6.5- transfuse 2 units PRBC On 4l nasal cannula- encourage incentive spirome ter and deep breathing Keep both chest tubes and monitor outputs Glycemic control on insulin drip Cardiac diet Bowel regimen protocol Pain management SCDs for DVT and PPI for GI prophylaxis PT/OT Monitor patient closely in CVICU Plan of care discussed with Dr. Schwarz 07/10/22 POD 2 Patient alert, awake, and oriented, no distres n oted labs and CXR reviewed stable Breathing comfortably on 3l nasal cannula- wean as tolerated to melissa O2 sats > 92 % Encourage I-S use and deep breathing On CRRT- able to remove 2.9L overnight- nephrolo gy following Cardiac index 3.1- wean off epi drip Keep chest tubes for now and monitor outputs Transition to sliding scale insulin- cardiac t Try to get patient out of bed to chair today- am bulate with PT/OT SCDs for DVT prophylaxis Keep patient in CVICU for close monitoring 07/11/22 POD 3 Patient in stable condition, overnight e vents noted- decreased urine output 35 ml last night-started on dopamine gtt for renal perfusion Cardiac index 3.5- epi currently at 2- will disc ontinue today, vasopressin at 0.02, added low dose midodrine 2.5 mg TID, repea t echocardiogram. Renal Following- trial Lasix Patient has Left femoral tem p dialysis cath, Will need tunneled dialysis IJ cath placed if need dialysis. On 5l nasal cannula- wean off as tolerat ed, encourage incentive spirometer and deep breathing Keep left pleural chest tube and monitor output- > 200 cc Tolerating diet, bowel regimen protocol PT/OT- patient out of bed to chair today- encour age ambulation DVT prophylaxis with SCDs Monitor patient closely in CVICU Plan discussed with multidisciplinary team Plan discussed with Dr Schwarz/ Dr Rodríguez 07/12/22 POD 5, Patient resting comfortable. Patient with hx of urinary r etention- After standing today- voided 1.4 L. Needs Urology consult for retention K 5.4- HD in progress. Dr Plaza following. CT output 20- DC today. Pacers remain in place. Patient has Left femoral tem p dialysis cath, Re-evaluate on Thursday if skilled nursing dialysis needed. Card: Remains in sinus rhythm. Respir: on 7 L NC O2 95% Dispo: Rehab consulted Patient seen and exmained by Dr Rodríguez. Plan discussed with Team 07/13/22 POD 5 Patient with no new complaints. Recieved HD yest erday. Requiring less oxygen, now on 3l nasal cannula- continue to wean off CXR reviewed left apical pne umothorax 4cm/30%, Chest tube drained 140 overnight, placed back on suction to clear pneumo, CT drianed 200cc th is AM. on suction. Labs reviewed- stable, decreased WBC, hgb stable , CR 3.9 Eating welll, +BM UO- 550CC, BP improved on midodrine. Continue PT/OT, ambulation and incentive spirome ter use Rehab folowing Monitor in ICU today Disucssed with Dr Schwarz- Adeola C femoral line and Central line today. DC art line. Will re-eval need for dialysis cath Thursday. Cons ider tunnelled cath if need. Patient seen and examined by Dr Rodríguez. Plan discussed with Care team. 07/14 POD 6 Patient in stable condition, no distress noted Remains on room air, O2 sats > 92%, encourage I- S use and deep breathing CXR shows moderate left apical pneumothorax unch anged CT remained on suction, no airleak no Consult IR for pigtail chest tube placement this morning Cardiac/renal diet Labs reviewed- K 5.1- repeat labs K 4.8 Nephrology following Continue therapy with PT/OT Follow up with urology for waters catheter- Dr Hunter carrera consulted. Monitor in CVICU Plan of care discussed with Dr Schwarz and multi disciplinary team 07/15/22 POD 7 Patient alert, awake, and oriented, no distress, no complaints at this time Breathing comfortable on room air CXR shows resolved pneumothorax LP and pigtail chest tube- no air leak noted, mi nimal output from LP 40 overnight Labs reviewed, K 5.2- corrected, follow up with nephrology to discuss need for dialysis Trend labs this afternoon Bowel regimen, +gas Waters catheter discontinued per urology- voiding trial this AM Ambulation and incentive spirometer use encourag ed DVT prophylaxis with SCDs Keep in ICU DISP: SNF- Case management Discussed plan of care with multidisciplinary te am and Dr. Schwarz 07/16/2022 POD 8 Patient doing well, alert, awake, and oriented O2 sats 93% on room air, encourage I-S CXR stable- no pneumo noted Left pigtail chest tube - no air leak, clamped t his morning, repeat CXR Placement of tunneled dialysis catheter (BioFlo DuraMax 28 cm) yesterday HD treatment done yesterday evening, plan for HD treatment today per nephrology Patient failed voiding trial, waters catheter rep laced- follow up with urology Eating well Continue PT/OT- ambulation Transfer to 1 intermediate care unit Discharge planning for SNF- CM following and to set up dialysis chair Patient seen with Dr. Allie louis and discussed plan of care with multidisciplinary team. 07/17/22 Patient in stable condition, no complaints Labs and CXR reviewed- stable Left pigtail chest tube discontinued yesterday- no pneumo noted Remains on room air, no distress- I-S encouraged Cardiac diet, +BM Keep waters per urology f/u outpt, continue floma x HD per nephrology- CM to setup outpt dialysis ch air Awaiting bed availability on CV 1 Discharge planning- SNF Plan of care discussed with multidisciplinary te bandar and Dr. Schwarz. Consultants: cardiology, cardiovascular surgery, nephrology Electronically Signed by Gianna Hoover on 0 07/17/22 at 1431 at 1945 RPT #:[id number] END OF REPORT 2022-07-16 20:47:00-00:00 [facility] Hospitalist Progress Note REPORT#:[id number] REPORT STATUS: Signed DATE:07/16/22 TIME: 2046 PATIENT: SHERRI ARCE UNIT #: [id number] ROOM/BED: [place] [address] : 42 AGE: 81 SEX: M ATTEND: Sam Mcarthur MD ADM AUTHOR: Sarbjit Mcarthur MD * ALL edits or amendments must be made on the [email or web address]/computer document * Subjective Chief complaint: Status post CABG x5 on 07/09, Doing well today. Am bulated around the unit. HPI: 81 y/o man with PMHx of HTN, Dyslipidemia [facility] with chest pain and found to have a NSTEMI and also acute renal failure. Underwent cardiac c ath yesterday and found to have severe CAD including left main disease. Transfer here f or CABG evaluation. He also underwent HD Thursday and Thursday of this week. HD catheter was place at [facility]. Currently not having any chest pain. Had chest pain with SOB when he presentted to the previous hospital. Objective General VS/I O: Vital Signs: Date Time Temp Pulse Resp B/P B/P Pulse O2 O2 F low FiO2 Mean Ox Delivery Rate 02/08 1953 95 Room air 02/08 1902 97.7 92 22 124/65 02/08 1700 79 26 121/63 86 95 02/08 1600 97.9 78 26 112/59 76 93 Room air 02/08 1600 78 26 112/59 80 93 02/08 1535 97 Room air 21 02/08 1530 79 25 109/60 78 93 02/08 1515 78 27 104/56 77 92 02/08 1500 97.5 75 24 110/55 02/08 1500 75 22 110/55 76 94 02/08 1400 82 28 104/58 78 92 02/08 1300 82 26 114/59 81 94 02/08 1200 97.6 78 26 112/58 76 94 Room air 02/08 1200 78 26 112/58 79 94 02/08 1139 100 Room air 21 02/08 1100 82 25 112/58 78 94 02/08 1000 83 28 103/58 78 92 02/08 0915 82 26 94/52 71 94 02/08 0900 84 28 100/55 75 95 02/08 0845 87 27 112/58 82 93 02/08 0831 90 27 101/50 71 91 02/08 0815 87 29 93/54 70 93 02/08 0800 98.1 88 25 101/54 69 95 Room air 02/08 0800 88 25 101/54 74 95 02/08 0748 94 Room air 21 02/08 0746 93 24 122/59 82 65 02/08 0730 87 27 100/58 76 96 02/08 0715 86 35 110/56 78 94 02/08 0700 87 28 108/58 77 91 02/08 0645 88 23 92/54 67 91 02/08 0615 82 25 85/52 64 89 02/08 0600 86 27 97/56 74 90 02/08 0545 84 29 98/56 74 89 02/08 0530 84 46 100/58 76 90 02/08 0515 89 8 103/58 74 93 02/08 0500 86 26 111/59 78 93 02/08 0445 84 25 96/52 69 90 02/08 0430 84 26 103/58 78 91 02/08 0415 82 26 97/55 72 93 02/08 0400 83 28 95/51 68 93 02/08 0345 83 27 96/51 69 91 02/08 0330 83 25 100/58 75 92 02/08 0300 82 22 95/54 69 92 02/08 0230 79 27 91/51 66 93 02/08 0200 80 25 95/51 68 94 02/08 0130 80 27 93/52 69 94 02/08 0100 81 26 93/54 68 94 02/08 0030 82 27 96/55 73 93 02/08 0000 85 30 106/55 75 94 02/07 2330 83 23 108/56 76 94 02/07 2300 80 23 101/54 73 95 02/07 2230 81 22 104/53 75 96 02/07 2200 80 40 113/56 80 97 02/07 2130 83 33 110/62 79 96 02/07 2100 80 28 113/58 80 98 24 hour I O ending at 0700: 07/16 0700 07/15 1900 Intake Total 500 720 Output Total 925 1285 Balance -425 -565 Intake, 0 Hemodialysis Intake, Oral 500 480 Intake, Oral 240 Supplement Output, Chest 25 45 Tube Drainage Output, Urine 900 1240 PATIENT WEIGHT: Weight (lb): 200 Weight (oz): 13.46 Weight (kg): 91.100 Physical Exam General appearance: alert, awake, oriented Head/Eyes: atraumatic, EOMI, normal conjunctiva/ sclera, normocephalic, PERRLA ENT: moist mucosal membranes Neck: full range of motion, no bruit/NL carotids , no JVD Cardiovascular: normal heart sounds, regular rat e rhythm Respiratory: aerating well, clear to auscultatio n, symmetric expansion, no distress Abdomen: non-tender, normal bowel sounds , soft, no distention, no guarding, no rebound Extremities: moves all, no cyanosis, no edema Musculoskeletal: normal inspection 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ALTH: alert, oriented X 3, normal speech, n o motor deficits, no sensory deficits Skin: intact, normal color, no rash Psychiatry: normal affect Results Findings/Data: Laboratory Tests 07/16 07/16 0310 0309 Chemistry Sodium (134 - 147 mEq/L) 143 Potassium (3.4 - 5.0 mEq/L) 4.3 Chloride (100 - 108 mEq/L) 105 Carbon Dioxide (21 - 33 mEq/l) 29 Anion Gap (0 - 20) 13 BUN (7 - 18 mg/dL) 43 H Creatinine (0.6 - 1.3 mg/dL) 4.0 H Glomerular Filtr Rate (70 - 80) 14.5 L Glucose (70 - 110 mg/dL) 97 Calcium (8.0 - 10.5 mg/dL) 8.4 Magnesium (1.80 - 2.40 mg/dL) 2.10 Laboratory Tests 07/16 0309 Hematology WBC (4.5 - 11.0 x10 3/uL) 10.8 RBC (4.00 - 5.60 x10 6/uL) 2.73 L Hgb (12.5 - 16.9 g/dL) 8.2 L Hct (37.5 - 50.7 %) 25.6 L MCV (81.0 - 99.0 fL) 93.8 MCH (27.0 - 33.0 pg) 30.0 MCHC (33.0 - 37.0 g/dL) 32.0 L RDW (11.5 - 14.5 %) 16.1 H Plt Count (150 - 400 x10 3/uL) 282 MPV (7.0 - 9.0 fL) 10.7 H Neut % (Auto) (56.0 - 77.0 %) 70.2 Lymph % (Auto) (14.0 - 32.0 %) 7.1 L [place] % (Auto) (4.8 - 9.0 %) 12.2 H Eos % (Auto) (0.3 - 3.7 %) 6.9 H Baso % (Auto) (0.0 - 2.0 %) 0.7 Neut # (Auto) (2.0 - 7.6 x10 3/uL) 7.58 Lymph # (Auto) (1.0 - 3.8 x10 3/uL) 0.77 L [place] # (Auto) (0.1 - 0.8 x10 3/uL) 1.32 H Eos # (Auto) (0.0 - 0.2 x10 3/uL) 0.75 H Baso # (Auto) (0.0 - 0.2 x10 3/uL) 0.08 Abs Immat Gran (auto) (0.00 - 0.03 x10 3/uL) 0 .31 H Add Manual Diff NO Immature Gran % (0.0 - 2.0 %) 2.9 H Nucleated RBC % (0 - 0 %) 0.0 Nucleated RBCs # (Man) (0.0 - 0.1 x10 3/uL) 0.0 0 Radiology data: Recent Impressions: RADIOLOGY - XR CHEST 1 V 07/16 0500 Report Impression - Status: SIGNED Entered: 07/16/2022 0710 IMPRESSION: Removal of the left basilar chest tube. Otherwis e, stable exam. Impression By: [email or web address] - Ranjan Sesay M.D. RADIOLOGY - XR CHEST 1 V 07/16 1055 Report Impression - Status: SIGNED Entered: 07/16/2022 1158 IMPRESSION: 1. Small left and stable small right layering pl eural effusion. 2. Left chest tube present. No pneumothorax. 3. Stable bibasilar airspace opacities Impression By: [email or web address] - Noreen Lambert Treatment Prophylaxis Treatment Prophylaxis Drain(s)/tube(s): Drain(s)/tube(s): chest Diagnosis, Assessment Plan Consultants: cardiology, cardiovascular surgery, nephrology Free Text DxA P Notes Free text DxA P notes: Assessment and plans: CAD (coronary artery disease) patient presented with NSTEMI and found to hve severe CAD. Cardiac cath shows: Left Main - Distal 70% LAD - Proximal 80% with another 60% and 70% les sions Cir - Proximal 80%,mid 80-90%, Distal 70% and O M 60% RCA - large dominant with proximal 40%, Mid 60% . Cardiology and CV surgeon consulted echo: ef 30-34%, mod hypokinesis of entire myoc ardium, grade 1 diastolic dysfunction Carotid Dopplers negative PFTs PT/OT s/p CABG X5 on 07/08 Patient on ASA, plavix, BB and Statin on amiodarone Beta-tomas as tolerated for low BP, Acute systolic heart failure Echocardiac with estimated LVEF of 30 to 34% wi th grade 1 diastolic dysfunction -s/p Lasix 20 mg twice daily 07/05 -on metoprolol 12.5 mg bid on hold now, BP low -no ACEI/ spironolactione for CLAUDETTE -Strict I's and O's, daily weights -Start GDMT prior to discharge CLAUDETTE (acute kidney injury) No prior Hx of renal disease. hx of BPH and casimiro ated with Fosamax w/o improvement nd continue to h ave difficulty urinating. On admission was found to be on acute renal filaure and had received HD tw ice prior to arrival here ( thursday and thursday). Creatinine this am was 7.4, BUN 68 * Probably due to obstructive uropathy * waters already in place * Nephrology consuled for HD On daily hemodialysis as per nephrology Anemia: -Hemoglobin dropped to 6.5 s/p CABG 2 PRBC BT ordered 07/09 Monitor H H Leukocytosis: -Afebrile Monitor WBC count HTN (hypertension) patient on metoprolol 12.5 mg BID, will adjust as needed On labetalol/hydralazine as needed Dyslipidemia on Lipitor 40mg po daliy. BPH (benign prostatic hyperplasia) Started on Flomax at the previous hospital, thais l continue with it. Waters catheter in place, continue Waters cathete r as per nephrology 07/05 Goiter Hx of Goiter and surgical resection. TSH 3.33, within normal limits. Patient is not on Thyroid medication. anemia of chronic kidney disease Hemoglobin 8.3, monitor Hypokalemia resolved UTI continue Rocephin for empiric treatment pend ing results of urine culture No growth for 48 hours DVT prophylaxis: Heparin 5000 units every 8 hour s Diet: Cardiac diet CODE STATUS: Full code Disposition: Status post CABG x5 on 07/09, hemodia lysis as per nephrology. Worked with PT in his room, on 2 L oxygen via na cj cannula. PT/OT on board. Rehab consulted. Transfer to floor. Quality: Gen Med Crit Care VTE Prophylaxis VTE prophylaxis initiated: yes Current Medications Current medication review: I attest that the foregoing medication list in t he medical record is true, accurate, and complete to the best of my knowled ge. Advanced Care Plan 65 or Older Discussed with: patient Discussion included: living will (none), power of employment law attorney (none), code status ( full code) at 2044 RPT #:[id number] END OF REPORT 2022-07-16 18:38:00-00:00 [facility] ([facility]) Critical Care Progress Note REPORT#:[id number] REPORT STATUS: Signed DATE:07/16/22 TIME: 1837 PATIENT: SHERRI ARCE UNIT #: [id number] ROOM/BED: [place] [address] : 42 AGE: 81 SEX: M ATTEND: Sam Mcatrhur MD ADM AUTHOR: Jana Mittal MD * ALL edits or amendments must be made on the el [employer]/computer document * Subjective Chief complaint: CABG HPI: This is 81 years old male with medical history s ignificant for HTN and dyslipidemia [facility] with chest pain and found to have a NSTEMI and also acute r enal failure. He underwent cardiac cath and was found to have sever e CAD including left main disease with EF of 30 to 35% and ischemic cardiomyopathy. Transfer here for CABG evaluation. CV surgery were consulted an d the patient earlier today underwent CABG x 5 (MISTRY -LAD, SVG-Ladonna, SVG-OM1< SVG-OM3, SVG-PDA) and AL AA. His intraoperative course was without significant occurrence. The patient was brought to CVICU intubated and ventilated on milrinone drip, norepinephrine drip, epinephrine drip and vasopressin drip. His initial ABG showed metabolic acidosi s and he received 2 A of sodium bicarb and 1 g of calcium. The patient started to wake up later in the even ing but he looked weak, so he was reversed with neostigmine and glycopyrrolate . His motor strength improved significantly after that and his spontaneous lenard athing trial was good on the following ABG showed some metabolic acid osis. The patient will be extubated to a BiPAP as his CO2 was high on the ABG. Comments: Interval history- Patinets chest tube was clamped, repeat CXR did not show any pneumothorax with chest tube was removed. Patient underwent dialysis today. Awaiting SNF placement. Objective General VS/I O Last Documented: Result Date Time Temp 36.7 07/17 0900 Pulse Ox 92 07/17 0735 O2 Delivery Room air 07/17 734 B/P 124/65 07/16 1901 Pulse 92 07/16 1902 Resp 22 07/16 1902 B/P Mean 86 07/16 1700 FiO2 21 07/16 1535 O2 Flow Rate 3 07/14 1151 24 hour I O ending at 0700: 07/17 0700 07/16 1900 Intake Total 750 1060.00 Output Total 1075 950 Balance -325 110.00 Intake, 0 Hemodialysis Intake, IV 100.00 Intake, Oral 750 960 Number 1 Bowel Movements Output, Urine 1075 950 Patient 88.8 kg Weight Weight Standing scale Measurement Method PATIENT WEIGHT: Weight (lb): 195 Weight (oz): 12.33 Weight (kg): 88.800 Medications: Active Meds + DC'd Last 24 Hrs Amiodarone HCl (CORDARONE) 200 MG BID PO Cefazolin Sodium (KEFZOL OR ANCEF) 2 GM PREOP IVF EMBRYOLOGIST IV (CKD) Albumin Human (ALBUMINAR-25%) 12.5 GM ASDIR PRN IV Sodium Chloride (SODIUM CHLORIDE) 10 ML ASDIR NV N IV Midodrine (PROAMATINE) 10 MG 0900,1300,1700 PO Sodium Chloride (SODIUM CHLORIDE) 20 ML ASDIR IV Sodium Bicarbonate (SODIUM BICARBONATE) 650 MG B ID PO (DC) Ipratropium Kersey (ATROVENT) 500 MCG RTQ2H PRN PRN INH Lactulose (LACTULOSE) 20 GM DAILY PRN PRN PO Cyanocobalamin (Vitamin B-12 500 mcg tab) 500 MC G DAILY PO Ferrous Sulfate (FERROUS SULFATE) 325 MG DAILY P O Dopamine HCl/Dextrose (DOPamine 400MG/D5W 250ML) 250 ML ASDIR IV Bisacodyl (DULCOLAX) 10 MG ONCE PRN RECTAL Atorvastatin Calcium (LIPITOR) 40 MG 2100 PO Clopidogrel Bisulfate (Plavix) 75 MG DAILY PO Polyethylene Glycol (MIRALAX) 17 GM DAILY PO Calcium Chloride (CALCIUM CHLORIDE) 1 GM ASDIR P RN IV Sodium Chloride (SODIUM CHLORIDE 0.9%) 100 ML Calcium Chloride (CALCIUM CHLORIDE) 2 GM ASDIR P RN IV Sodium Chloride (SODIUM CHLORIDE 0.9%) 100 ML Magnesium Sulfate (MAGNESIUM SULFATE 4GM/SWFI 10 0ML) 100 ML ASDIR PRN IV Magnesium Sulfate (MAGNESIUM SULFATE 2GM/SWFI 50 ML) 50 ML ASDIR PRN IV Potassium Chloride (KCL 10MEQ/SWFI 50ML) 50 ML A SDIR PRN IV Sodium Chloride (SODIUM CHLORIDE 0.9%) 2,000 ML ASDIR PRN IV Sodium Phosphate (SODIUM PHOSPHATE) 25 MMOL ASDI R PRN IV Sodium Chloride (SODIUM CHLORIDE 0.9%) 250 ML Sodium Phosphate (SODIUM PHOSPHATE) 20 MMOL ASDI R PRN IV Sodium Chloride (SODIUM CHLORIDE 0.9%) 250 ML Sodium Phosphate (SODIUM PHOSPHATE) 15 MMOL ASDI R PRN IV Sodium Chloride (SODIUM CHLORIDE 0.9%) 250 ML Pantoprazole (PROTONIX) 40 MG DAILY@0600 PO Aspirin (ASPIRIN) 81 MG DAILY PO Vasopressin (VASOSTRICT 20 Unit/NS 100ML) 100 ML ASDIR IV (CKD) Amiodarone HCl (CORDARONE) 200 MG TID PO (DC) Docusate Sodium (COLACE) 100 MG BID PO Sennosides (Senna Lax 8.6 MG TABLET) 17.2 MG BED TIME PO Ipratropium Kersey (ATROVENT) 500 MCG RTQ4H INH Acetaminophen (TYLENOL) 650 MG Q4H PRN PRN PO Acetaminophen (TYLENOL) 650 MG Q4H PRN PRN RECTA L Calcium Chloride (CALCIUM CHLORIDE) 1 GM ASDIR P RN IV Dextrose/Water (DEXTROSE 10% IN WATER) 125 ML DIR PRN IV (CKD) Dextrose/Water (DEXTROSE 10% IN WATER) 250 ML DIR PRN IV (CKD) Epinephrine (ADRENALIN CHLORIDE) 4 MG ASDIR IV Dextrose/Water (DEXTROSE 5% WATER) 246 ML Glucagon (GLUCAGON) 1 MG ASDIR PRN IM Magnesium Sulfate (MAGNESIUM SULFATE 4GM/SWFI 10 0ML) 100 ML ASDIR PRN IV Magnesium Sulfate (MAGNESIUM SULFATE 2GM/SWFI 50 ML) 50 ML ASDIR PRN IV Magnesium Sulfate/Dextrose (MAGNESIUM SULFATE 1G M/D5W 100ML) 100 ML ASDIR PRN IV Nitroglycerin/Dextrose (NITROGLYCERIN 50,000MCG/ D5W 250ML) 250 ML ASDIR IV Norepinephrine Bitartrate (NOREPINEPHRINE 8 MG/N S 250 ML) 250 ML TITRATE IV Ondansetron HCl (ZOFRAN) 4 MG Q6H PRN PRN IV Potassium Chloride (KCL 20MEQ/SWFI 100ML) 100 ML ASDIR PRN IV Sodium Bicarbonate (SODIUM BICARBONATE) 50 MEQ A SDIR PRN IV Albumin Human (ALBUMINAR-25%) 12.5 GM ASDIR PRN IV Heparin Sodium (Porcine) (HEPARIN SODIUM) 3,000 UNIT ASDIR PRN DIALYSIS Lidocaine HCl (LIDOCAINE HCL/PF) 0.5 ML ASDIR NV N I-DERMAL (CKD) Mannitol (Mannitol 20%) 12.5 GM ASDIR PRN IV Sodium Chloride (SODIUM CHLORIDE 0.9%) 2,000 ML ASDIR PRN IV Tamsulosin HCl (Flomax 0.4 mg) 0.4 MG BEDTIME PO Results Findings/data: Laboratory Tests 07/16 07/16 0310 0309 Chemistry Sodium (134 - 147 mEq/L) 143 Potassium (3.4 - 5.0 mEq/L) 4.3 Chloride (100 - 108 mEq/L) 105 Carbon Dioxide (21 - 33 mEq/l) 29 Anion Gap (0 - 20) 13 BUN (7 - 18 mg/dL) 43 H Creatinine (0.6 - 1.3 mg/dL) 4.0 H Glomerular Filtr Rate (70 - 80) 14.5 L Glucose (70 - 110 mg/dL) 97 Calcium (8.0 - 10.5 mg/dL) 8.4 Magnesium (1.80 - 2.40 mg/dL) 2.10 Laboratory Tests 07/16 0309 Hematology WBC (4.5 - 11.0 x10 3/uL) 10.8 RBC (4.00 - 5.60 x10 6/uL) 2.73 L Hgb (12.5 - 16.9 g/dL) 8.2 L Hct (37.5 - 50.7 %) 25.6 L MCV (81.0 - 99.0 fL) 93.8 MCH (27.0 - 33.0 pg) 30.0 MCHC (33.0 - 37.0 g/dL) 32.0 L RDW (11.5 - 14.5 %) 16.1 H Plt Count (150 - 400 x10 3/uL) 282 MPV (7.0 - 9.0 fL) 10.7 H Neut % (Auto) (56.0 - 77.0 %) 70.2 Lymph % (Auto) (14.0 - 32.0 %) 7.1 L [place] % (Auto) (4.8 - 9.0 %) 12.2 H Eos % (Auto) (0.3 - 3.7 %) 6.9 H Baso % (Auto) (0.0 - 2.0 %) 0.7 Neut # (Auto) (2.0 - 7.6 x10 3/uL) 7.58 Lymph # (Auto) (1.0 - 3.8 x10 3/uL) 0.77 L [place] # (Auto) (0.1 - 0.8 x10 3/uL) 1.32 H Eos # (Auto) (0.0 - 0.2 x10 3/uL) 0.75 H Baso # (Auto) (0.0 - 0.2 x10 3/uL) 0.08 Abs Immat Gran (auto) (0.00 - 0.03 x10 3/uL) 0. 31 H Add Manual Diff NO Immature Gran % (0.0 - 2.0 %) 2.9 H Nucleated RBC % (0 - 0 %) 0.0 Nucleated RBCs # (Man) (0.0 - 0.1 x10 3/uL) 0.0 0 Laboratory Tests 07/16/22 0310: [Embedded Image Not Available] 07/16/22 0309: [Embedded Image Not Available] Radiology data Recent Impressions: RADIOLOGY - XR CHEST 1 V 07/16 0500 Report Impression - Status: SIGNED Entered: 07/16/2022 0710 IMPRESSION: Removal of the left basilar chest tube. Otherwis e, stable exam. Impression By: [email or web address] - Ranjan Sesay M.D. RADIOLOGY - XR CHEST 1 V 07/16 1055 Report Impression - Status: SIGNED Entered: 07/16/2022 1158 IMPRESSION: 1. Small left and stable small right layering pl eural effusion. 2. Left chest tube present. No pneumothorax. 3. Stable bibasilar airspace opacities Impression By: [email or web address] - Noreen Lambert Free Text Obj Notes Free Text Obj Notes: General appearance: Elderly male in no acute dis tress, interactive and conversational HEENT: atraumatic, normocephalic, moist mucosal membranes Neck: full range of motion, supple/no meningismu s Cardiovascular: S1-S2 regular rate and rhythm Respiratory: symmetric expansion, no acute respi ratory distress Abdomen: soft, non-tender, no distention, no gua rding Genitourinary: waters with clear urine Extremities: pedal pulses pa lpable, moves all, no cyanosis, mild LE edema, right >left Musculoskeletal: normal inspection, no muscle sp asm 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ALTH: alert and oriented x3, CNII-XII gross ly intact, no motor deficits Skin: dry, intact and clean surgery dressing Treatment Prophylaxis Treatment Prophylaxis Drain(s)/tube(s): Drain(s)/tube(s): chest Diagnosis, Assessment Plan Problem list/A P: 1. CLAUDETTE (acute kidney injury) 2. CAD (coronary artery disease) 3. Goiter 4. BPH (benign prostatic hyperplasia) 5. Dyslipidemia 6. HTN (hypertension) Free text A P: 73-year-old male with Acute pulmonary insufficiency following thoracic surgery Status post CABG x 5 (MISTRY-LAD, SVG-Ladonna, SVG-OM1 < SVG-OM3, SVG-PDA) and ALAA Acute blood loss anemia Hypotension Ischemic cardiomyopathy, EF 30 to 34% Multivessel CAD CLAUDETTE on hemodialysis Continue mechanical ventilation, vent settings r eviewed Titrate FiO2 to keep saturation more than 90%. Spontaneous breathing trial as soon as possible Wean to extubate Follow ABGs and CXRs ABG shows metabolic acidosis. Patient re ceived 2 A of sodium bicarb and 1 g of calcium Keep off sedation Judicious pain control Milrinone drip 0.25 Epinephrine drip Norepinephrine drip Vasopressin drip Titrate drips to keep MAP more than 65 Wean milrinone off first per CV surgery Minimize fluids per CV surgery Aspirin and Plavix Atorvastatin Metoprolol Follow lactate level Monitor chest tube output Hemodialysis per nephrology Monitor urine output and kidney function Monitor and replete electrolytes Perioperative antibiotics Cardiac diet with bowel regimen once extubated BG control with insulin gtt per protocol PT/OT VTE prophylaxis. Stress ulcer prophylaxis. Discussed with CV surgery, anesthesia and ICU te am Critical care time 85 minutes 07/09 Appears neuro intact, multimodal pain control, m inimize narcotic use, no CO2 narcosis Extubated successfully, sats well on NC, wean O2 , monitor for hypercapnia, encourage I-S, obtain serial ABGs, CXR reviewed HD unstable, weaning vasopre ssors and inotrope, monitor HD parameters, low CVP, lactic acidosis with uptrending lactate, gentle volume resuscitation Oliguric CLAUDETTE, plan for CRRT per renal, h yperkalemia treated, obtain serial lab PO challenge, bowel regimen, serial abdominal ex am, monitor LFTs Leukocytosis postop, likely reactive, trend WBC, s/p antibiotic course for UTI , periop antibiotics Hgb trending down, no eviden ce of active bleed, monitor CTs output, RBC given HD instability Blood glucose control with insulin drip per prot ocol Encourage PT/OT and activity as tolerated DVT and GI prophylaxis with DAPT and PPI 2/2 Appears neuro intact, multimodal pain control, m inimize narcotic use sats well on NC, wean O2, encourage I-S, ABG and CXR reviewed HD fairly stable, on minimal vasopressor support , lactic acidosis cleared s/p resuscitation Oliguric CLAUDETTE, tolerated CRRT, holding off per re nal, monitor UOP and electrolytes closely Oral diet as tolerated, bowel regimen, monitor L FTs Leukocytosis postop, trend WBC, treated for UTI preop Hgb responded to PRBC, no evidence of active ble ed, minimal CTs output Blood glucose control, transitioned insulin drip to SSI Encourage PT/OT and out of bed as tolerated DVT and GI prophylaxis with DAPT and PPI 2/3 Remains neuro intact, pain appears well controll ed Sats well on NC, wean O2, encourage I-S, ABG and CXR reviewed HD unstable, remains on minimal vasopressor supp ort, attempt to wean, start midodrine Oliguric CLAUDETTE, off CRRT per r enal, minimal UOP, started renal dose dopamine drip Tolerating oral diet, continue bowel regimen, LF Ts normalized Leukocytosis postop, continue to trend WBC, keira georgi for UTI preop Hgb stable s/p PRBC, no evidence of active bleed , monitor pCT output Blood glucose control with sliding scale insulin Encourage PT/OT and out of bed as tolerated, CM for dispo plan DVT and GI prophylaxis with DAPT and PPI 2/4 Remains neuro intact, pain appears well controll ed Sats well on NC, wean O2, encourage I-S, ABG and CXR reviewed HD unstable, weaning vasopressors, increase mido drine dose, remains in SR CLAUDETTE, likely postrenal, improved UOP, HD today pe r renal, hyperkalemia treated Tolerating oral diet, has bowel movement and bow el regimen, LFTs normalized Leukocytosis, WBC trending d own, currently off antibiotics s/p treatment for UTI Hgb remains stable s/p PRBC, no evidence of acti ve bleed, minimal CT output Blood glucose control with sliding scale insulin Encourage PT/OT and out of bed as tolerated, CM for dispo plan, IPR consulted DVT and GI prophylaxis with DAPT and PPI 2 Remains neuro intact, pain appears well controll ed Sats well, wean O2, encourage I-S, ABG and CXR r eviewed, has left PTX HD stable off vasopressors, increased midodrine dose CLAUDETTE, likely postrenal, makin g urine, HD per renal, renal US with hydronephrosis Tolerating oral diet, has bowel movement and bow el regimen Leukocytosis, WBC trending down, monitor off antibiotics s/p treatment for UTI Hgb remains stable s/p PRBC, no evidence of acti ve bleed, keep CT to suction Blood glucose control with sliding scale insulin Tolerating PT/OT, CM for dispo plan, IPR on boar d DVT and GI prophylaxis with DAPT and PPI 07/14 Neuro Intact. Pain well controlled. Is off oxygen. On room air saturating more than 94%. Imaging chest x-ray reviewed. Still has a persistent left pneumothor ax. IR guided pigtail was placed today , CXR shows expansion of the lung Maintaining the blood pressure on midodrine 5 3 times daily. Making good urine. Monitor the potassium . As per renal we will see if he needs dialysis tomorrow then will need a tunneled cath eter. White count remained stable. No antibiotics. And bowel movement. Continue bowel regimen. Urology evaluation pending. PT OT. Pending rehab placement when medically re edith. 07/15 Neurologically intact. Pain is well controlled. He is on room air. Chest x-ray reviewed. Very small pneumothorax/. Does have bilateral pulmonary infiltrates. Continue pigtail to suction. Patient making good urine but his BUN/creatinine is still worsening. We will have tunneled dialysis catheter today. R enal following. Will discontinue Waters and monitor for trial of void if fails then will need Waters replaced back. Continue Flomax. Urology fo llowing. We will increase the midodrine to 10 3 times aleshia ly. Continue PT and PPI. SCDs for DVT prophylaxis. Disposition is SNF. 07/16 Neurologically intact pain well controlled. We will discharge to hemodialysis today. Chest x-ray and ABG personally reviewed. Repeat chest x-ray after clamping of the tube did not show any new pneumothorax. Ches t tube was removed. Patient continues to remain on room air. No signs of infection. Continue with midodrine. Underwent hemodialysis today. Tolerated well. DAPT and PPI for GI prophylaxis. SCDs. Disposition SNF in [place] close to home. [facility] silva for dialysis bed Daughter was updated about this plan by me. Consultants: cardiology, cardiovascular surgery, nephrology Quality: Gen [facility] Crit Care VTE Prophylaxis VTE prophylaxis initiated: yes Electronically Signed by Jana Mittal MD on 0 07/17/22 at 1245 RPT #:[id number] END OF REPORT 2022-07-16 11:30:00-00:00 [facility] ([facility]) Cardiology Progress Note REPORT#:[id number] REPORT STATUS: Signed DATE:07/16/22 TIME: 1130 PATIENT: SHERRI ARCE UNIT #: [id number] [place] [facility] [place] [place] 42 AGE: 81 SEX: M ATTEND: Srinath Kaur MD ADM AUTHOR: Sonya Stacy 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 Objective General VS/I O: 24 hour I O ending at 0700: 07/16 0700 07/15 1900 Intake Total 500 720 Output Total 925 1285 Balance -425 -565 Intake, 0 Hemodialysis Intake, Oral 500 480 Intake, Oral 240 Supplement Output, Chest 25 45 Tube Drainage Output, Urine 900 1240 Vital Signs: Date Time Temp Pulse Resp B/P B/P Pulse O2 O2 F low FiO2 Mean Ox Delivery Rate 07/16 1100 82 25 112/58 78 94 / 1000 83 28 103/58 78 92 07/16 0915 82 26 94/52 71 94 07/16 0800 84 28 100/55 75 95 07/16 0845 87 27 112/58 82 93 07/16 0831 90 27 101/50 71 91 07/16 0815 87 29 93/54 70 93 07/16 0800 36.7 88 25 101/54 69 95 Room air 07/16 799 88 25 101/54 74 95 02/08 0748 94 Room air 21 02/08 0746 93 24 122/59 82 65 02/08 0730 87 27 100/58 76 96 02/08 0715 86 35 110/56 78 94 02/08 0700 87 28 108/58 77 91 02/08 0645 88 23 92/54 67 91 02/08 0615 82 25 85/52 64 89 02/08 0600 86 27 97/56 74 90 02/08 0545 84 29 98/56 74 89 02/08 0530 84 46 100/58 76 90 02/08 0515 89 8 103/58 74 93 02/08 0500 86 26 111/59 78 93 02/08 0445 84 25 96/52 69 90 02/08 0430 84 26 103/58 78 91 02/08 0415 82 26 97/55 72 93 02/08 0400 83 28 95/51 68 93 02/08 0345 83 27 96/51 69 91 02/08 0330 83 25 100/58 75 92 02/08 0300 82 22 95/54 69 92 02/08 0230 79 27 91/51 66 93 02/08 0200 80 25 95/51 68 94 02/08 0130 80 27 93/52 69 94 02/08 0100 81 26 93/54 68 94 02/08 0030 82 27 96/55 73 93 02/08 0000 85 30 106/55 75 94 02/07 2330 83 23 108/56 76 94 02/07 2300 80 23 101/54 73 95 02/07 2230 81 22 104/53 75 96 02/07 2200 80 40 113/56 80 97 02/07 2130 83 33 110/62 79 96 02/07 2100 80 28 113/58 80 98 02/07 2030 80 24 116/60 81 97 02/07 2000 36.4 02/07 1999 80 30 96/51 70 96 02/07 1950 95 Room air 02/07 1900 80 23 89/53 68 97 02/07 1845 78 24 102/58 76 99 02/07 1831 80 31 102/55 75 98 02/07 1815 82 25 93/50 69 02/07 1800 81 44 93/53 72 02/07 1745 83 27 96/54 70 59 02/07 1730 82 33 113/56 80 89 02/07 1715 76 37 110/62 81 92 02/07 1700 72 55 107/57 77 95 02/07 1645 70 20 110/55 78 95 02/ 1637 72 23 112/61 80 96 02/ 1500 75 22 100/58 76 94 02/07 1400 79 26 105/61 78 93 02/ 1300 80 28 97/56 73 96 02/ 1200 80 30 88/52 65 93 PATIENT WEIGHT: Weight (lb): 200 Weight (oz): 13.46 Weight (kg): 91.100 Medications: Active Meds + DC'd Last 24 Hrs Amiodarone HCl (CORDARONE) 200 MG BID PO Cefazolin Sodium (KEFZOL OR ANCEF) 2 GM PREOP IVF EMBRYOLOGIST IV (CKD) Albumin Human (ALBUMINAR-25%) 12.5 GM ASDIR PRN IV Sodium Chloride (SODIUM CHLORIDE) 10 ML ASDIR NV N IV Phenylephrine HCl (Phenylephrine PF 500 mg/5 mL Inj) 0 .STK-MED ONE .ROUTE (DC) Cefazolin Sodium (KEFZOL OR ANCEF) 0 .STK-MED ON E .ROUTE (DC) Propofol (DIPRIVAN 200MG/20ML INJECTION) 0 .STK- MED ONE IV (DC) Fentanyl Citrate (SUBLIMAZE) 0 .STK-MED ONE IV ( DC) Dexamethasone Sodium Phosphate (DECADRON) 0 .STK -MED ONE .ROUTE (DC) Etomidate (AMIDATE) 0 .STK-MED ONE IV (DC) Lidocaine HCl (XYLOCAINE) 0 .STK-MED ONE .ROUTE (DC) Ondansetron HCl (ZOFRAN) 0 .STK-MED ONE .ROUTE ( DC) Heparin Sodium (HEPARIN SODIUM) 0 .STK-MED ONE . ROUTE (DC) Midodrine (PROAMATINE) 10 MG 0900,1300,1700 PO Sodium Chloride (SODIUM CHLORIDE) 20 ML ASDIR IV Midodrine (PROAMATINE) 5 MG 0900,1300,1700 PO (D C) Sodium Bicarbonate (SODIUM BICARBONATE) 650 MG B ID PO Ipratropium Kersey (ATROVENT) 500 MCG RTQ2H PRN PRN INH Lactulose (LACTULOSE) 20 GM DAILY PRN PRN PO Cyanocobalamin (Vitamin B-12 500 mcg tab) 500 MC G DAILY PO Ferrous Sulfate (FERROUS SULFATE) 325 MG DAILY P O Dopamine HCl/Dextrose (DOPamine 400MG/D5W 250ML) 250 ML ASDIR IV Bisacodyl (DULCOLAX) 10 MG ONCE PRN RECTAL Atorvastatin Calcium (LIPITOR) 40 MG 2100 PO Clopidogrel Bisulfate (Plavix) 75 MG DAILY PO Polyethylene Glycol (MIRALAX) 17 GM DAILY PO Calcium Chloride (CALCIUM CHLORIDE) 1 GM ASDIR P RN IV Sodium Chloride (SODIUM CHLORIDE 0.9%) 100 ML Calcium Chloride (CALCIUM CHLORIDE) 2 GM ASDIR P RN IV Sodium Chloride (SODIUM CHLORIDE 0.9%) 100 ML Magnesium Sulfate (MAGNESIUM SULFATE 4GM/SWFI 10 0ML) 100 ML ASDIR PRN IV Magnesium Sulfate (MAGNESIUM SULFATE 2GM/SWFI 50 ML) 50 ML ASDIR PRN IV Potassium Chloride (KCL 10MEQ/SWFI 50ML) 50 ML A SDIR PRN IV Sodium Chloride (SODIUM CHLORIDE 0.9%) 2,000 ML ASDIR PRN IV Sodium Phosphate (SODIUM PHOSPHATE) 25 MMOL ASDI R PRN IV Sodium Chloride (SODIUM CHLORIDE 0.9%) 250 ML Sodium Phosphate (SODIUM PHOSPHATE) 20 MMOL ASDI R PRN IV Sodium Chloride (SODIUM CHLORIDE 0.9%) 250 ML Sodium Phosphate (SODIUM PHOSPHATE) 15 MMOL ASDI R PRN IV Sodium Chloride (SODIUM CHLORIDE 0.9%) 250 ML Pantoprazole (PROTONIX) 40 MG DAILY@0600 PO Aspirin (ASPIRIN) 81 MG DAILY PO Vasopressin (VASOSTRICT 20 Unit/NS 100ML) 100 ML ASDIR IV (CKD) Amiodarone HCl (CORDARONE) 200 MG TID PO (DC) Docusate Sodium (COLACE) 100 MG BID PO Sennosides (Senna Lax 8.6 MG TABLET) 17.2 MG BED TIME PO Ipratropium Kersey (ATROVENT) 500 MCG RTQ4H INH Acetaminophen (TYLENOL) 650 MG Q4H PRN PRN PO Acetaminophen (TYLENOL) 650 MG Q4H PRN PRN RECTA L Calcium Chloride (CALCIUM CHLORIDE) 1 GM ASDIR P RN IV Dextrose/Water (DEXTROSE 10% IN WATER) 125 ML DIR PRN IV (CKD) Dextrose/Water (DEXTROSE 10% IN WATER) 250 ML DIR PRN IV (CKD) Epinephrine (ADRENALIN CHLORIDE) 4 MG ASDIR IV Dextrose/Water (DEXTROSE 5% WATER) 246 ML Glucagon (GLUCAGON) 1 MG ASDIR PRN IM Magnesium Sulfate (MAGNESIUM SULFATE 4GM/SWFI 10 0ML) 100 ML ASDIR PRN IV Magnesium Sulfate (MAGNESIUM SULFATE 2GM/SWFI 50 ML) 50 ML ASDIR PRN IV Magnesium Sulfate/Dextrose (MAGNESIUM SULFATE 1G M/D5W 100ML) 100 ML ASDIR PRN IV Nitroglycerin/Dextrose (NITROGLYCERIN 50,000MCG/ D5W 250ML) 250 ML ASDIR IV Norepinephrine Bitartrate (NOREPINEPHRINE 8 MG/N S 250 ML) 250 ML TITRATE IV Ondansetron HCl (ZOFRAN) 4 MG Q6H PRN PRN IV Potassium Chloride (KCL 20MEQ/SWFI 100ML) 100 ML ASDIR PRN IV Sodium Bicarbonate (SODIUM BICARBONATE) 50 MEQ A SDIR PRN IV Albumin Human (ALBUMINAR-25%) 12.5 GM ASDIR PRN IV Heparin Sodium (Porcine) (HEPARIN SODIUM) 3,000 UNIT ASDIR PRN DIALYSIS Lidocaine HCl (LIDOCAINE HCL/PF) 0.5 ML ASDIR NV N I-DERMAL (CKD) Mannitol (Mannitol 20%) 12.5 GM ASDIR PRN IV Sodium Chloride (SODIUM CHLORIDE 0.9%) 2,000 ML ASDIR PRN IV Tamsulosin HCl (Flomax 0.4 mg) 0.4 MG BEDTIME PO Status post: 07/08/22 CABG x 5 (MISTRY-LAD, SVG-Ladonna, SVG-OM1< SV G-OM3, SVG-PDA) ALAA Physical Exam General appearance: alert, awake Head/Eyes: atraumatic ENT: moist mucosal membranes Neck: no JVD Cardiovascular: CV assessment: pedal edema, regular rate and rh ythm, no murmur Respiratory: decreased breath sounds, no distres s Abdomen: soft, non-tender, normal bowel sounds, no distention, no guarding Upper extremity: UE assessment: normal temperature, no edema Lower extremity: LE assessment: edema (2 to 3+ pitting edema), n ormal temperature, no edema Musculoskeletal: normal inspection 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ALTH: alert, oriented X 3, normal speech Skin: dry Psychiatry: normal affect Results Findings/Data: Laboratory Tests 07/16 07/16 07/15 07/15 0310 0309 1710 1710 Chemistry Sodium (134 - 147 mEq/L) 143 138 Potassium (3.4 - 5.0 mEq/L) 4.3 5.1 H Chloride (100 - 108 mEq/L) 105 103 Carbon Dioxide (21 - 33 mEq/l) 29 24 Anion Gap (0 - 20) 13 16 BUN (7 - 18 mg/dL) 43 H 78 H Creatinine (0.6 - 1.3 mg/dL) 4.0 H 5.9 H Glomerular Filtr Rate (70 - 80) 14.5 L 9.1 L Glucose (70 - 110 mg/dL) 97 102 Calcium (8.0 - 10.5 mg/dL) 8.4 8.5 Magnesium (1.80 - 2.40 mg/dL) 2.10 2.39 Laboratory Tests 07/16 0309 Hematology WBC (4.5 - 11.0 x10 3/uL) 10.8 RBC (4.00 - 5.60 x10 6/uL) 2.73 L Hgb (12.5 - 16.9 g/dL) 8.2 L Hct (37.5 - 50.7 %) 25.6 L MCV (81.0 - 99.0 fL) 93.8 MCH (27.0 - 33.0 pg) 30.0 MCHC (33.0 - 37.0 g/dL) 32.0 L RDW (11.5 - 14.5 %) 16.1 H Plt Count (150 - 400 x10 3/uL) 282 MPV (7.0 - 9.0 fL) 10.7 H Neut % (Auto) (56.0 - 77.0 %) 70.2 Lymph % (Auto) (14.0 - 32.0 %) 7.1 L [place] % (Auto) (4.8 - 9.0 %) 12.2 H Eos % (Auto) (0.3 - 3.7 %) 6.9 H Baso % (Auto) (0.0 - 2.0 %) 0.7 Neut # (Auto) (2.0 - 7.6 x10 3/uL) 7.58 Lymph # (Auto) (1.0 - 3.8 x10 3/uL) 0.77 L [place] # (Auto) (0.1 - 0.8 x10 3/uL) 1.32 H Eos # (Auto) (0.0 - 0.2 x10 3/uL) 0.75 H Baso # (Auto) (0.0 - 0.2 x10 3/uL) 0.08 Abs Immat Gran (auto) (0.00 - 0.03 x10 3/uL) 0. 31 H Add Manual Diff NO Immature Gran % (0.0 - 2.0 %) 2.9 H Nucleated RBC % (0 - 0 %) 0.0 Nucleated RBCs # (Man) (0.0 - 0.1 x10 3/uL) 0.0 0 Laboratory Tests 07/16 07/15 0309 1710 Chemistry Magnesium (1.80 - 2.40 mg/dL) 2.10 2.39 Radiology data: Recent Impressions: RADIOLOGY - XR CHEST 1 V 07/15 1700 Report Impression - Status: SIGNED Entered: 07/15/2022 1841 IMPRESSION: Placement of right internal jugular central line with tip in the SVC. Impression By: Kourtney Boo M.D. RADIOLOGY - XR CHEST 1 V 07/16 0500 Report Impression - Status: SIGNED Entered: 07/16/2022 0710 IMPRESSION: Removal of the left basilar chest tube. Otherwis e, stable exam. Impression By: [email or web address] - Ranjan Sesay M.D. Telemetry Interpretation: sinus rhythm Diagnosis, Assessment Plan Problem List/A P: 1. HTN (hypertension) 2. CLAUDETTE (acute kidney injury) 3. CAD (coronary artery disease) 4. Dyslipidemia 5. BPH (benign prostatic hyperplasia) Plan discussed with: patient, nurse Free Text DxA P Notes Free Text DxA P Notes: Mr. Arce is a pleasant 81 y/o M w/ PMHx: HTN, HLD presented to [facility] on 06/28/22 for chest pa in and sob. He was diagnosed NSTEMI. LHC showed multivessel CAD. Transferred to [facility] for CABG. 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 urology consulted for bladded outlet obstructio n and hydronephrosis, started on Flomax worsening creatinine, better today - s/p TDC pl acement, HD per nephro - HTN. hypotension post-op off Pressors. Midodrine 10 mg po tid. - HLD. On statins. - Anemia. monitor at 1333 Electronically Signed by Liset Ennis MD on at 1057 RPT #:[id number] END OF REPORT 2022-07-16 10:51:00-00:00 [facility]L [facility] REPORT#:[id number] REPORT STATUS: Signed DATE:07/16/22 TIME: 1051 PATIENT: SHERRI ARCE UNIT #: [id number] ROOM/BED: [place] [id number] : 42 AGE: 81 SEX: M ATTEND: Srinath Kaur MD ADM AUTHOR: Gianna Hoover * ALL edits or amendments must be made on the [email or web address] document * General Post-op: day 8 Status post: 07/08/22 CABG x 5 (MISTRY-LAD, SVG-Ladonna, SVG-OM1< SVG-OM3, SVG-PDA) ALABud TATUM (RGSV) Subjective Chief complaint: s/p CABG no complaints Review of Systems Constitutional: Denies: chills, fever, malaise. Allergy/Immun: Denies: allergic reaction. Respiratory: Denies: SOB. Cardiovascular: Denies: chest pain, palpitations. GI: Denies: abdominal pain, nausea, vomiting. : Denies: dysuria, hematuria. Heme: Denies: bleeding. Neuro: Denies: dizziness, headache, vision change. All systems rev neg: except as marked Objective General VS/I O Last Documented: Result Date Time Pulse Ox 95 07/16 899 B/P 100/55 07/16 0800 B/P Mean 75 07/16 899 Pulse 84 07/16 0900 Resp 28 07/16 09 O2 Delivery Room air 07/16 799 Temp 98.1 07/16 799 FiO2 21 07/16 0748 O2 Flow Rate 3 07/14 1151 24 hour I O ending at 0700: 07/16 0700 07/15 1900 Intake Total 500 720 Output Total 925 1285 Balance -425 -565 Intake, 0 Hemodialysis Intake, Oral 500 480 Intake, Oral 240 Supplement Output, Chest 25 45 Tube Drainage Output, Urine 900 1240 PATIENT WEIGHT: Weight (lb): 200 Weight (oz): 13.46 Weight (kg): 91.100 Dietitian Nutrition assessment The data set between the solid lines has been im ported from the dietitian's assessment. BMI Calculated: 27.2 Nutrition related diagnosis: Nutrition diagnosis details: Nutrition problem: Increased nutrient needs Nutrition etiology: Chronic disease Nutrition signs and symptoms: ESTIMATED NEEDS S/ P CABG Nutrition prescription: 1. R ECOMMEND CONTIUE CARDIAC DIET, MONITOR LABS WITH PT ON DIALYSIS. 2. CONTINUE NEPRO BID. 3. DIET EDUC ATION PRIOR TO DISCHARGE. 4. MONITOR PO, WT, LABS, BM. Dietitian name: Trang Rodriguez, DIET Assessment completed: 07/10/22 Physical Exam General appearance: alert, awake, oriented Wound/incision: Location: sternal Site condition: edges approximated, incision in tact HEENT: anicteric, mucosal membranes moist Neck: supple/no meningismus Cardiovascular: normal heart sounds, regular rat e rhythm Respiratory: aerating well, symmetric expansion, no distress Abdomen: soft, non-tender, no distention Genitourinary: no waters Extremities: moves all 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ALTH: alert, oriented X 3, normal speech, n o motor deficits Psychiatry: normal affect, normal mood Current Medications Medications: Active Meds + DC'd Last 24 Hrs Amiodarone HCl (CORDARONE) 200 MG BID PO Cefazolin Sodium (KEFZOL OR ANCEF) 2 GM PREOP IVF EMBRYOLOGIST IV (CKD) Albumin Human (ALBUMINAR-25%) 12.5 GM ASDIR PRN IV Sodium Chloride (SODIUM CHLORIDE) 10 ML ASDIR NV N IV Phenylephrine HCl (Phenylephrine PF 500 mg/5 mL Inj) 0 .STK-MED ONE .ROUTE (DC) Cefazolin Sodium (KEFZOL OR ANCEF) 0 .STK-MED ON E .ROUTE (DC) Propofol (DIPRIVAN 200MG/20ML INJECTION) 0 .STK- MED ONE IV (DC) Fentanyl Citrate (SUBLIMAZE) 0 .STK-MED ONE IV (DC) Dexamethasone Sodium Phosphate (DECADRON) 0 .STK -MED ONE .ROUTE (DC) Etomidate (AMIDATE) 0 .STK-MED ONE IV (DC) Lidocaine HCl (XYLOCAINE) 0 .STK-MED ONE .ROUTE (DC) Ondansetron HCl (ZOFRAN) 0 .STK-MED ONE .ROUTE ( DC) Heparin Sodium (HEPARIN SODIUM) 0 .STK-MED ONE . ROUTE (DC) Midodrine (PROAMATINE) 10 MG 0900,1300,1700 PO Dexamethasone Sodium Phosphate (DECADRON) 0 .STK -MED ONE .ROUTE (DC) Fentanyl Citrate (SUBLIMAZE) 0 .STK-MED ONE .ROU TE (DC) Heparin Sodium (HEPARIN SODIUM) 0 .STK-MED ONE . ROUTE (DC) Lidocaine HCl (XYLOCAINE) 0 .STK-MED ONE .ROUTE (DC) Ondansetron HCl (ZOFRAN) 0 .STK-MED ONE .ROUTE ( DC) Propofol (DIPRIVAN 200MG/20ML INJECTION) 20 ML . STK-MED ONE IV (DC) Sodium Chloride (SODIUM CHLORIDE) 20 ML ASDIR IV Midodrine (PROAMATINE) 5 MG 0900,1300,1700 PO (D C) Sodium Bicarbonate (SODIUM BICARBONATE) 650 MG B ID PO Ipratropium Kersey (ATROVENT) 500 MCG RTQ2H PRN PRN INH Lactulose (LACTULOSE) 20 GM DAILY PRN PRN PO Cyanocobalamin (Vitamin B-12 500 mcg tab) 500 MC G DAILY PO Ferrous Sulfate (FERROUS SULFATE) 325 MG DAILY P O Dopamine HCl/Dextrose (DOPamine 400MG/D5W 250ML) 250 ML ASDIR IV Bisacodyl (DULCOLAX) 10 MG ONCE PRN RECTAL Atorvastatin Calcium (LIPITOR) 40 MG 2100 PO Clopidogrel Bisulfate (Plavix) 75 MG DAILY PO Polyethylene Glycol (MIRALAX) 17 GM DAILY PO Calcium Chloride (CALCIUM CHLORIDE) 1 GM ASDIR P RN IV Sodium Chloride (SODIUM CHLORIDE 0.9%) 100 ML Calcium Chloride (CALCIUM CHLORIDE) 2 GM ASDIR P RN IV Sodium Chloride (SODIUM CHLORIDE 0.9%) 100 ML Magnesium Sulfate (MAGNESIUM SULFATE 4GM/SWFI 10 0ML) 100 ML ASDIR PRN IV Magnesium Sulfate (MAGNESIUM SULFATE 2GM/SWFI 50 ML) 50 ML ASDIR PRN IV Potassium Chloride (KCL 10MEQ/SWFI 50ML) 50 ML A SDIR PRN IV Sodium Chloride (SODIUM CHLORIDE 0.9%) 2,000 ML ASDIR PRN IV Sodium Phosphate (SODIUM PHOSPHATE) 25 MMOL ASDI R PRN IV Sodium Chloride (SODIUM CHLORIDE 0.9%) 250 ML Sodium Phosphate (SODIUM PHOSPHATE) 20 MMOL ASDI R PRN IV Sodium Chloride (SODIUM CHLORIDE 0.9%) 250 ML Sodium Phosphate (SODIUM PHOSPHATE) 15 MMOL ASD IR PRN IV Sodium Chloride (SODIUM CHLORIDE 0.9%) 250 ML Pantoprazole (PROTONIX) 40 MG DAILY@0600 PO Aspirin (ASPIRIN) 81 MG DAILY PO Vasopressin (VASOSTRICT 20 Unit/NS 100ML) 100 ML ASDIR IV (CKD) Amiodarone HCl (CORDARONE) 200 MG TID PO (DC) Docusate Sodium (COLACE) 100 MG BID PO Sennosides (Senna Lax 8.6 MG TABLET) 17.2 MG BED TIME PO Ipratropium Kersey (ATROVENT) 500 MCG RTQ4H INH Acetaminophen (TYLENOL) 650 MG Q4H PRN PRN PO Acetaminophen (TYLENOL) 650 MG Q4H PRN PRN RECTA L Calcium Chloride (CALCIUM CHLORIDE) 1 GM ASDIR P RN IV Dextrose/Water (DEXTROSE 10% IN WATER) 125 ML DIR PRN IV (CKD) Dextrose/Water (DEXTROSE 10% IN WATER) 250 ML DIR PRN IV (CKD) Epinephrine (ADRENALIN CHLORIDE) 4 MG ASDIR IV Dextrose/Water (DEXTROSE 5% WATER) 246 ML Glucagon (GLUCAGON) 1 MG ASDIR PRN IM Magnesium Sulfate (MAGNESIUM SULFATE 4GM/SWFI 10 0ML) 100 ML ASDIR PRN IV Magnesium Sulfate (MAGNESIUM SULFATE 2GM/SWFI 50 ML) 50 ML ASDIR PRN IV Magnesium Sulfate/Dextrose (MAGNESIUM SULFATE 1G M/D5W 100ML) 100 ML ASDIR PRN IV Nitroglycerin/Dextrose (NITROGLYCERIN 50,000MCG/ D5W 250ML) 250 ML ASDIR IV Norepinephrine Bitartrate (NOREPINEPHRINE 8 MG/N S 250 ML) 250 ML TITRATE IV Ondansetron HCl (ZOFRAN) 4 MG Q6H PRN PRN IV Potassium Chloride (KCL 20MEQ/SWFI 100ML) 100 ML ASDIR PRN IV Sodium Bicarbonate (SODIUM BICARBONATE) 50 MEQ A SDIR PRN IV Albumin Human (ALBUMINAR-25%) 12.5 GM ASDIR PRN IV Heparin Sodium (Porcine) (HEPARIN SODIUM) 3,000 UNIT ASDIR PRN DIALYSIS Lidocaine HCl (LIDOCAINE HCL/PF) 0.5 ML ASDIR NV N I-DERMAL (CKD) Mannitol (Mannitol 20%) 12.5 GM ASDIR PRN IV Sodium Chloride (SODIUM CHLORIDE 0.9%) 2,000 ML ASDIR PRN IV Tamsulosin HCl (Flomax 0.4 mg) 0.4 MG BEDTIME PO Results Findings/Data: Laboratory Tests 07/16 07/16 07/15 07/15 0310 0309 1710 1710 Chemistry Sodium (134 - 147 mEq/L) 143 138 Potassium (3.4 - 5.0 mEq/L) 4.3 5.1 H Chloride (100 - 108 mEq/L) 105 103 Carbon Dioxide (21 - 33 mEq/l) 29 24 Anion Gap (0 - 20) 13 16 BUN (7 - 18 mg/dL) 43 H 78 H Creatinine (0.6 - 1.3 mg/dL) 4.0 H 5.9 H Glomerular Filtr Rate (70 - 80) 14.5 L 9.1 L Glucose (70 - 110 mg/dL) 97 102 Calcium (8.0 - 10.5 mg/dL) 8.4 8.5 Magnesium (1.80 - 2.40 mg/dL) 2.10 2.39 Laboratory Tests 07/16 0309 Hematology WBC (4.5 - 11.0 x10 3/uL) 10.8 RBC (4.00 - 5.60 x10 6/uL) 2.73 L Hgb (12.5 - 16.9 g/dL) 8.2 L Hct (37.5 - 50.7 %) 25.6 L MCV (81.0 - 99.0 fL) 93.8 MCH (27.0 - 33.0 pg) 30.0 MCHC (33.0 - 37.0 g/dL) 32.0 L RDW (11.5 - 14.5 %) 16.1 H Plt Count (150 - 400 x10 3/uL) 282 MPV (7.0 - 9.0 fL) 10.7 H Neut % (Auto) (56.0 - 77.0 %) 70.2 Lymph % (Auto) (14.0 - 32.0 %) 7.1 L [place] % (Auto) (4.8 - 9.0 %) 12.2 H Eos % (Auto) (0.3 - 3.7 %) 6.9 H Baso % (Auto) (0.0 - 2.0 %) 0.7 Neut # (Auto) (2.0 - 7.6 x10 3/uL) 7.58 Lymph # (Auto) (1.0 - 3.8 x10 3/uL) 0.77 L [place] # (Auto) (0.1 - 0.8 x10 3/uL) 1.32 H Eos # (Auto) (0.0 - 0.2 x10 3/uL) 0.75 H Baso # (Auto) (0.0 - 0.2 x10 3/uL) 0.08 Abs Immat Gran (auto) (0.00 - 0.03 x10 3/uL) 0. 31 H Add Manual Diff NO Immature Gran % (0.0 - 2.0 %) 2.9 H Nucleated RBC % (0 - 0 %) 0.0 Nucleated RBCs # (Man) (0.0 - 0.1 x10 3/uL) 0. 00 Radiology data: Recent Impressions: RADIOLOGY - XR CHEST 1 V 07/15 1700 Report Impression - Status: SIGNED Entered: 07/15/2022 1841 IMPRESSION: Placement of right internal jugular central line with tip in the SVC. Impression By: Kourtney Boo M.D. RADIOLOGY - XR CHEST 1 V 07/16 0500 Report Impression - Status: SIGNED Entered: 07/16/2022 0710 IMPRESSION: Removal of the left basilar chest tube. Otherwis e, stable exam. Impression By: [email or web address] Yasmin Sesay M.D. Results: labs reviewed, vital signs stable, ryth m personally rev'd, x-ray personally reviewed, current med profile rev'd Treatment Prophylaxis Treatment Prophylaxis Drain(s)/tube(s): Drain(s)/tube(s): chest Quality: Trauma Gen Surg VTE Prophylaxis - General VTE prophylaxis initiated: yes Diagnosis, Assessment Plan Hospital course to date: This is a 81-year-old gentleman who presented to an outside hospital with complaints of chest pains while walking at his home on Thursday. He denies any previous history of coronary artery disease or o ther NE. He was seen and evaluated at [facility]. He was found to have a urinary tract infection with urinary retention and acute kidne y. He was started on dialysis via a left femoral temporary catheter. He underw ent dialysis on Thursday, Thursday. Renal has been consulted During his work-up at outside hospital he underw ent Left heart catheterization showing sever e Left Main 70%. LAD: Proximal diffuse 80% stenosis and then diffuse 60% in the midsegment and on the distal segment, there is focal 70% stenosis. Diagonal branches w ith luminal irregularities. Left circumflex, codominant circulation with pro ximal 80%, mid 80 to 90% and then in the OM, there is proximal 60%, distal le ft circumflex has a 70% stenosis. RCA large and dominant with proximal 4 0% stenosis, mid 60% stenosis and then diffuse 50% stenosi s all the way distally and the PLV and the PDA with luminal irregularities. CV surgery consulted for evaluation for coronary bypass graft. CAROTIDS - No carotid stenosis CT chest complete IMPRESSION: Small bilateral pleural effusions with bibasila r atelectasis. Echo: 1. Left ventricle: The cavity size is at the upp er limits of normal. Wall thickness is mildly increased. Systolic fu nction is severely reduced. The estimated ejection fraction is 30- 34%. Moderate hypokinesis of the entire myocardium. Doppler p arameters are consistent with abnormal left ventricular relax ation (grade 1 diastolic dysfunction). 2. Pericardium, extracardiac: A small pericardia l effusion is identified along the left ventricular free wall, along the right ventricular free wall, and along the right atrial free wall . Assessment/Plan 1) CAD Mutlivessel Will obtain echo,carotids. 2) CLAUDETTE Started dialysis on Creatine 7.3 Renal consulted. 3) BPH- Urinary retention. Waters in place Workup for CABG underway. Will get functional assessment with PT. PFT pending Carotid dopplers- No disease Echo Pending Dialyiss per Renal. Baseline Cr unknown. 07/04 07/04 Doing well today, alert, up in the chair. Denies chest pain Echocardiogram showed LVEF 30 to 34%, mild MR, t rivial TR CT chest images reviewed Encourage I-S and mobilization Creatinine 5.5 from 7.3, good urine output. Pao l US showed bilateral severe hydronephrosis. Plan for HD today and tomorrow Will tentatively schedule patient for surgery on Thursday. Patient seen and plan reviewed with Dr Schwarz 07/05 Remains in a stable condition, denies chest pain BUN 53, creatinine 5.4. Plan for hemodia lysis today and tomorrow for clearance He is also on Lasix 20 mg IV twice daily, urine output 1.1 L overnight We will calculate risk of surgery with STS score Encourage I-S and mobilization Will tentatively schedule patient for surgery on Thursday. Pt seen and plan reviewed with Dr Schwarz 07/06 BUN 36, creatinine 4.4. Plan for hemodialysis to day Awaiting CABG tomorrow Surgery, risks involved, STS score, benefits, co mplications and alternatives were explained to the patient. He acknow ledged understanding and is willing to proceed N.p.o. after midnight Patient seen and plan reviewed with Dr. Schwarz 07/09/22 POD 1 CABG x 5 (MISTRY-LAD, SVG-Ladonna, SVG-OM1< SVG-OM3, S VG-PDA), ALAA, JACQUIH (RGSV) Patient hemodynamically unstable, on epi at 4, a nd vaso .04, decreased uop overnight- 150cc Started patient on CRRT 2k/3.5 Wean epi as tolerated, Cardiac incex 2.8-3 labs and chest x-ray reviewed, electroly marcie stable, hgb 6.5- transfuse 2 units PRBC On 4l nasal cannula- encourage incentive spirome ter and deep breathing Keep both chest tubes and monitor outputs Glycemic control on insulin drip Cardiac diet Bowel regimen protocol Pain management SCDs for DVT and PPI for GI prophylaxis PT/OT Monitor patient closely in CVICU Plan of care discussed with Dr. Schwarz 07/10/22 POD 2 Patient alert, awake, and oriented, no distres n oted labs and CXR reviewed stable Breathing comfortably on 3l nasal cannula- wean as tolerated to melissa O2 sats > 92 % Encourage I-S use and deep breathing On CRRT- able to remove 2.9L overnight- nephrolo gy following Cardiac index 3.1- wean off epi drip Keep chest tubes for now and monitor outputs Transition to sliding scale insulin- cardiac t Try to get patient out of bed to chair today- am bulate with PT/OT SCDs for DVT prophylaxis Keep patient in CVICU for close monitoring 07/11/22 POD 3 Patient in stable condition, overnight e vents noted- decreased urine output 35 ml last night-started on dopamine gtt for renal perfusion Cardiac index 3.5- epi currently at 2- will disc ontinue today, vasopressin at 0.02, added low dose midodrine 2.5 mg TID, repea t echocardiogram. Renal Following- trial Lasix Patient has Left femoral tem p dialysis cath, Will need tunneled dialysis IJ cath placed if need dialysis. On 5l nasal cannula- wean off as tolerat ed, encourage incentive spirometer and deep breathing Keep left pleural chest tube and monitor output- > 200 cc Tolerating diet, bowel regimen protocol PT/OT- patient out of bed to chair today- encour age ambulation DVT prophylaxis with SCDs Monitor patient closely in CVICU Plan discussed with multidisciplinary team Plan discussed with Dr Schwarz/ Dr Rodríguez 07/12/22 POD 5, Patient resting comfortable. Patient with hx of urinary r etention- After standing today- voided 1.4 L. Needs Urology consult for retention K 5.4- HD in progress. Dr Plaza following. CT output 20- DC today. Pacers remain in place. Patient has Left femoral tem p dialysis cath, Re-evaluate on Thursday if ocean transportation intermediary dialysis needed. Card: Remains in sinus rhythm. Respir: on 7 L NC O2 95% Dispo: Rehab consulted Patient seen and exmained by Dr Rodríguez. Plan discussed with Team 07/13/22 POD 5 Patient with no new complaints. Recieved HD yest erday. Requiring less oxygen, now on 3l nasal cannula- continue to wean off CXR reviewed left apical pne umothorax 4cm/30%, Chest tube drained 140 overnight, placed back on suction to clear pneumo, CT drianed 200cc th is AM. on suction. Labs reviewed- stable, decreased WBC, hgb stable , CR 3.9 Eating welll, +BM UO- 550CC, BP improved on midodrine. Continue PT/OT, ambulation and incentive spirome ter use Rehab folowing Monitor in ICU today Disucssed with Dr Schwarz- Adeola C femoral line and Central line today. DC art line. Will re-eval need for dialysis cath Thursday. Cons ider tunnelled cath if need. Patient seen and examined by Dr Rodríguez. Plan discussed with Care team. 07/14 POD 6 Patient in stable condition, no distress noted Remains on room air, O2 sats > 92%, encourage I- S use and deep breathing CXR shows moderate left apical pneumothorax unch anged CT remained on suction, no airleak no Consult IR for pigtail chest tube placement this morning Cardiac/renal diet Labs reviewed- K 5.1- repeat labs K 4.8 Nephrology following Continue therapy with PT/OT Follow up with urology for waters catheter- Dr Hunter carrera consulted. Monitor in CVICU Plan of care discussed with Dr Schwarz and multi disciplinary team 07/15/22 POD 7 Patient alert, awake, and oriented, no distress, no complaints at this time Breathing comfortable on room air CXR shows resolved pneumothorax LP and pigtail chest tube- no air leak noted, mi nimal output from LP 40 overnight Labs reviewed, K 5.2- corrected, follow up with nephrology to discuss need for dialysis Trend labs this afternoon Bowel regimen, +gas Waters catheter discontinued per urology- voiding trial this AM Ambulation and incentive spirometer use encourag ed DVT prophylaxis with SCDs Keep in ICU DISP: SNF- Case management Discussed plan of care with multidisciplinary te am and Dr. Schwarz 07/16/2022 POD 8 Patient doing well, alert, awake, and oriented O2 sats 93% on room air, encourage I-S CXR stable- no pneumo noted Left pigtail chest tube - no air leak, clamped t his morning, repeat CXR Placement of tunneled dialysis catheter (BioFlo DuraMax 28 cm) yesterday HD treatment done yesterday evening, plan for HD treatment today per nephrology Patient failed voiding trial, waters catheter rep laced- follow up with urology Eating well Continue PT/OT- ambulation Transfer to [facility] intermediate care unit Discharge planning for SNF- CM following and to set up dialysis chair Patient seen with Dr. Allie louis and discussed plan of care with multidisciplinary team. Consultants: cardiology, cardiovascular surgery, nephrology Electronically Signed by Gianna Hoover on 0 07/17/22 at 1430 at 1945 RPT #:[id number] END OF REPORT 2022-07-16 09:02:00-00:00 [facility] Progress Note REPORT#:[id number] REPORT STATUS: Signed DATE:07/16/22 TIME: 901 PATIENT: SHERRI ARCE UNIT #: [id number] ROOM/BED: [place] [address] : 42 AGE: 81 SEX: M ATTEND: Sam Mcarthur MD ADM AUTHOR: Florencia Washburn NP * ALL edits or amendments must be made on the el [employer]/computer document * Subjective Chief complaint: Rehab follow-up OOB in chair Denies pain or sob till with CT Pleasant Feels ok Denies NAIK/N/V/D/CP 14 systems reviewed and neg. except that above. Objective General VS: Vital Signs: Date Time Temp Pulse Resp B/P B/P Pulse O2 O2 F low FiO2 Mean Ox Delivery Rate 02/08 1139 100 Room air 21 02/08 1100 82 25 112/58 78 94 02/08 1000 83 28 103/58 78 92 02/08 0915 82 26 94/52 71 94 02/08 0900 84 28 100/55 75 95 02/08 0845 87 27 112/58 82 93 02/08 0831 90 27 101/50 71 91 02/08 0815 87 29 93/54 70 93 02/08 0800 98.1 88 25 101/54 69 95 Room air 02/08 0800 88 25 101/54 74 95 02/08 0748 94 Room air 21 02/08 0746 93 24 122/59 82 65 02/08 0730 87 27 100/58 76 96 02/08 0715 86 35 110/56 78 94 02/08 0700 87 28 108/58 77 91 02/08 0645 88 23 92/54 67 91 02/08 0615 82 25 85/52 64 89 02/08 0600 86 27 97/56 74 90 02/08 0545 84 29 98/56 74 89 02/08 0530 84 46 100/58 76 90 02/08 0515 89 8 103/58 74 93 02/08 0500 86 26 111/59 78 93 02/08 0445 84 25 96/52 69 90 02/08 0430 84 26 103/58 78 91 02/08 0415 82 26 97/55 72 93 02/08 0400 83 28 95/51 68 93 02/08 0345 83 27 96/51 69 91 02/08 0330 83 25 100/58 75 92 02/08 0300 82 22 95/54 69 92 02/08 0230 79 27 91/51 66 93 02/08 0200 80 25 95/51 68 94 02/08 0130 80 27 93/52 69 94 02/08 0100 81 26 93/54 68 94 02/08 0030 82 27 96/55 73 93 02/08 0000 85 30 106/55 75 94 02/07 2330 83 23 108/56 76 94 02/07 2300 80 23 101/54 73 95 02/07 2230 81 22 104/53 75 96 02/07 2200 80 40 113/56 80 97 02/07 2130 83 33 110/62 79 96 02/07 2100 80 28 113/58 80 98 02/07 2030 80 24 116/60 81 97 02/07 1999 97.6 02/1999 80 30 96/51 70 96 02/07 1950 95 Room air 02/07 1900 80 23 89/53 68 97 02/07 1845 78 24 102/58 76 99 02/07 1831 80 31 102/55 75 98 02/07 1815 82 25 93/50 69 02/07 1800 81 44 93/53 72 02/07 1745 83 27 96/54 70 59 02/07 1730 82 33 113/56 80 89 02/07 1715 76 37 110/62 81 92 02/07 1700 72 55 107/57 77 95 02/07 1645 70 20 110/55 78 95 02/07 1637 72 23 112/61 80 96 02/07 1500 75 22 100/58 76 94 02/07 1400 79 26 105/61 78 93 02/07 1300 80 28 97/56 73 96 PATIENT WEIGHT: Weight (lb): 200 Weight (oz): 13.46 Weight (kg): 91.100 Medications: Active Meds + DC'd Last 24 Hrs Amiodarone HCl (CORDARONE) 200 MG BID PO Cefazolin Sodium (KEFZOL OR ANCEF) 2 GM PREOP IVF EMBRYOLOGIST IV (CKD) Albumin Human (ALBUMINAR-25%) 12.5 GM ASDIR PRN IV Sodium Chloride (SODIUM CHLORIDE) 10 ML ASDIR NV N IV Phenylephrine HCl (Phenylephrine PF 500 mg/5 mL Inj) 0 .STK-MED ONE .ROUTE (DC) Cefazolin Sodium (KEFZOL OR ANCEF) 0 .STK-MED ON E .ROUTE (DC) Propofol (DIPRIVAN 200MG/20ML INJECTION) 0 .STK- MED ONE IV (DC) Fentanyl Citrate (SUBLIMAZE) 0 .STK-MED ONE IV ( DC) Dexamethasone Sodium Phosphate (DECADRON) 0 .STK -MED ONE .ROUTE (DC) Etomidate (AMIDATE) 0 .STK-MED ONE IV (DC) Lidocaine HCl (XYLOCAINE) 0 .STK-MED ONE .ROUTE (DC) Ondansetron HCl (ZOFRAN) 0 .STK-MED ONE .ROUTE ( DC) Heparin Sodium (HEPARIN SODIUM) 0 .STK-MED ONE . ROUTE (DC) Midodrine (PROAMATINE) 10 MG 0900,1300,1700 PO Sodium Chloride (SODIUM CHLORIDE) 20 ML ASDIR IV Sodium Bicarbonate (SODIUM BICARBONATE) 650 MG B ID PO (DC) Ipratropium Kersey (ATROVENT) 500 MCG RTQ2H PRN PRN INH Lactulose (LACTULOSE) 20 GM DAILY PRN PRN PO Cyanocobalamin (Vitamin B-12 500 mcg tab) 500 MC G DAILY PO Ferrous Sulfate (FERROUS SULFATE) 325 MG DAILY P O Dopamine HCl/Dextrose (DOPamine 400MG/D5W 250ML) 250 ML ASDIR IV Bisacodyl (DULCOLAX) 10 MG ONCE PRN RECTAL Atorvastatin Calcium (LIPITOR) 40 MG 2100 PO Clopidogrel Bisulfate (Plavix) 75 MG DAILY PO Polyethylene Glycol (MIRALAX) 17 GM DAILY PO Calcium Chloride (CALCIUM CHLORIDE) 1 GM ASDIR P RN IV Sodium Chloride (SODIUM CHLORIDE 0.9%) 100 ML Calcium Chloride (CALCIUM CHLORIDE) 2 GM ASDIR P RN IV Sodium Chloride (SODIUM CHLORIDE 0.9%) 100 ML Magnesium Sulfate (MAGNESIUM SULFATE 4GM/SWFI 10 0ML) 100 ML ASDIR PRN IV Magnesium Sulfate (MAGNESIUM SULFATE 2GM/SWFI 50 ML) 50 ML ASDIR PRN IV Potassium Chloride (KCL 10MEQ/SWFI 50ML) 50 ML A SDIR PRN IV Sodium Chloride (SODIUM CHLORIDE 0.9%) 2,000 ML ASDIR PRN IV Sodium Phosphate (SODIUM PHOSPHATE) 25 MMOL ASDI R PRN IV Sodium Chloride (SODIUM CHLORIDE 0.9%) 250 ML Sodium Phosphate (SODIUM PHOSPHATE) 20 MMOL ASDI R PRN IV Sodium Chloride (SODIUM CHLORIDE 0.9%) 250 ML Sodium Phosphate (SODIUM PHOSPHATE) 15 MMOL ASDI R PRN IV Sodium Chloride (SODIUM CHLORIDE 0.9%) 250 ML Pantoprazole (PROTONIX) 40 MG DAILY@0600 PO Aspirin (ASPIRIN) 81 MG DAILY PO Vasopressin (VASOSTRICT 20 Unit/NS 100ML) 100 ML ASDIR IV (CKD) Amiodarone HCl (CORDARONE) 200 MG TID PO (DC) Docusate Sodium (COLACE) 100 MG BID PO Sennosides (Senna Lax 8.6 MG TABLET) 17.2 MG BED TIME PO Ipratropium Kersey (ATROVENT) 500 MCG RTQ4H INH Acetaminophen (TYLENOL) 650 MG Q4H PRN PRN PO Acetaminophen (TYLENOL) 650 MG Q4H PRN PRN RECTA L Calcium Chloride (CALCIUM CHLORIDE) 1 GM ASDIR P RN IV Dextrose/Water (DEXTROSE 10% IN WATER) 125 ML DIR PRN IV (CKD) Dextrose/Water (DEXTROSE 10% IN WATER) 250 ML DIR PRN IV (CKD) Epinephrine (ADRENALIN CHLORIDE) 4 MG ASDIR IV Dextrose/Water (DEXTROSE 5% WATER) 246 ML Glucagon (GLUCAGON) 1 MG ASDIR PRN IM Magnesium Sulfate (MAGNESIUM SULFATE 4GM/SWFI 10 0ML) 100 ML ASDIR PRN IV Magnesium Sulfate (MAGNESIUM SULFATE 2GM/SWFI 50 ML) 50 ML ASDIR PRN IV Magnesium Sulfate/Dextrose (MAGNESIUM SULFATE 1G M/D5W 100ML) 100 ML ASDIR PRN IV Nitroglycerin/Dextrose (NITROGLYCERIN 50,000MCG/ D5W 250ML) 250 ML ASDIR IV Norepinephrine Bitartrate (NOREPINEPHRINE 8 MG/N S 250 ML) 250 ML TITRATE IV Ondansetron HCl (ZOFRAN) 4 MG Q6H PRN PRN IV Potassium Chloride (KCL 20MEQ/SWFI 100ML) 100 ML ASDIR PRN IV Sodium Bicarbonate (SODIUM BICARBONATE) 50 MEQ A SDIR PRN IV Albumin Human (ALBUMINAR-25%) 12.5 GM ASDIR PRN IV Heparin Sodium (Porcine) (HEPARIN SODIUM) 3,000 UNIT ASDIR PRN DIALYSIS Lidocaine HCl (LIDOCAINE HCL/PF) 0.5 ML ASDIR NV N I-DERMAL (CKD) Mannitol (Mannitol 20%) 12.5 GM ASDIR PRN IV Sodium Chloride (SODIUM CHLORIDE 0.9%) 2,000 ML ASDIR PRN IV Tamsulosin HCl (Flomax 0.4 mg) 0.4 MG BEDTIME PO Physical Exam General appearance: alert, awake Psych: alert, oriented x 3 HEENT: anicteric, sclera clear Neck: supple, no JVD Cardiovascular: regular rate rhythm, S1/S2 Respiratory: aerating well, clear bilaterally Abdomen: bowel sounds present, non-distended, so ft Skin: intact, no rash Musculoskeletal - general: Musculoskeletal - general: joints normal, meagan l muscle mass, normal tone 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ALTH: alert, oriented X 3, CNII-XII intact Results Findings/Data: Laboratory Tests: 07/16 07/16 07/15 07/15 0310 0309 1710 1710 Chemistry Sodium (134 - 147 mEq/L) 143 138 Potassium (3.4 - 5.0 mEq/L) 4.3 5.1 H Chloride (100 - 108 mEq/L) 105 103 Carbon Dioxide (21 - 33 mEq/l) 29 24 Anion Gap (0 - 20) 13 16 BUN (7 - 18 mg/dL) 43 H 78 H Creatinine (0.6 - 1.3 mg/dL) 4.0 H 5.9 H Glomerular Filtr Rate (70 - 80) 14.5 L 9.1 L Glucose (70 - 110 mg/dL) 97 102 Calcium (8.0 - 10.5 mg/dL) 8.4 8.5 Magnesium (1.80 - 2.40 mg/dL) 2.10 2.39 Hematology WBC (4.5 - 11.0 x10 3/uL) 10.8 RBC (4.00 - 5.60 x10 6/uL) 2.73 L Hgb (12.5 - 16.9 g/dL) 8.2 L Hct (37.5 - 50.7 %) 25.6 L MCV (81.0 - 99.0 fL) 93.8 MCH (27.0 - 33.0 pg) 30.0 MCHC (33.0 - 37.0 g/dL) 32.0 L RDW (11.5 - 14.5 %) 16.1 H Plt Count (150 - 400 x10 3/uL) 282 MPV (7.0 - 9.0 fL) 10.7 H Neut % (Auto) (56.0 - 77.0 %) 70.2 Lymph % (Auto) (14.0 - 32.0 %) 7.1 L [place] % (Auto) (4.8 - 9.0 %) 12.2 H Eos % (Auto) (0.3 - 3.7 %) 6.9 H Baso % (Auto) (0.0 - 2.0 %) 0.7 Neut # (Auto) (2.0 - 7.6 x10 3/uL) 7.58 Lymph # (Auto) (1.0 - 3.8 x10 3/uL) 0.77 L [place] # (Auto) (0.1 - 0.8 x10 3/uL) 1.32 H Eos # (Auto) (0.0 - 0.2 x10 3/uL) 0.75 H Baso # (Auto) (0.0 - 0.2 x10 3/uL) 0.08 Abs Immat Gran (auto) (0.00 - 0.03 x10 3/uL) 0. 31 H Add Manual Diff NO Immature Gran % (0.0 - 2.0 %) 2.9 H Nucleated RBC % (0 - 0 %) 0.0 Nucleated RBCs # (Man) (0.0 - 0.1 x10 3/uL) 0.0 0 Diagnosis, Assessment Plan Free Text A P: Non-STEMI Multivessel CAD S/p CABG x5 Physical deconditioning Impaired mobility and gait Postoperative anemia Dyslipidemia Hypertension CLAUDETTE Acute systolic heart failure Hemodynamic issues postop Leukocytosis trending down Plan: Continue PT/OT Out of bed to chair Work on strength, bed mobility, transfers, gait Sternal precaution Increase endurance Fall precautions Monitor p.o. intake and nutrition Strict decubitus precautions Monitor anemia. 2/7 Persistent left pneumothorax. IR guided pigtail place. CXR shows expansion of the lung Urology consulted -Pt on Flomax Nephrology managing renal issues and elevated K+ - Nephrology discussed POC with CT surge ry, no emergent HD needed at this time repeat lab in a.m. if worsen, will plan for TDC. Advance therapies as tolerated Therapy update: Transfers: Mirtha Gait: 200ft During therapy session patient's blood p ressure drops with standing from 91/52 to 78/48 Patient was asymptomatic Post gait blood pressure was 86/52 Pt lives alone and has 5 to 6 stairs to enter ho use IRF consulted. Will require insurance approval SNF order has been placed Total time was 35 minutes > 50% with patient per forming physical examination, discussing plan of care, goals, therapies, progr ess, medications, labs, IRF. All questions answered Consultants: cardiology, cardiovascular surgery, nephrology Rehab attestation: Face to face exam completed. Treatment plan disc ussed with patient. at 1257 RPT #:[id number] END OF REPORT 2022-07-16 07:53:00-00:00 [facility] REPORT#:[id number] REPORT STATUS: Signed DATE:07/16/22 TIME: 0753 PATIENT: SHERRI ARCE UNIT #: [id number] ROOM/BED: 2202-1 : 42 AGE: 81 SEX: M ATTEND: Sam Mcarthur MD ADM AUTHOR: Evelina Plaza MD * ALL edits or amendments must be made on the [email or web address] document * Subjective Chief complaint: Feeling okay and has no complaints at this time. Objective General VS/I O: Vital Signs: Date Time Temp Pulse Resp B/P B/P Pulse O2 O2 F low FiO2 Mean Ox Delivery Rate 02/08 1139 100 Room air 21 02/08 1100 82 25 112/58 78 94 02/08 1000 83 28 103/58 78 92 02/08 0915 82 26 94/52 71 94 02/08 0900 84 28 100/55 75 95 02/08 0845 87 27 112/58 82 93 02/08 0831 90 27 101/50 71 91 02/08 0815 87 29 93/54 70 93 02/08 0800 98.1 88 25 101/54 69 95 Room air 02/08 0800 88 25 101/54 74 95 02/08 0748 94 Room air 21 02/08 0746 93 24 122/59 82 65 02/08 0730 87 27 100/58 76 96 02/08 0715 86 35 110/56 78 94 02/08 0700 87 28 108/58 77 91 02/08 0645 88 23 92/54 67 91 02/08 0615 82 25 85/52 64 89 02/08 0600 86 27 97/56 74 90 02/08 0545 84 29 98/56 74 89 02/08 0530 84 46 100/58 76 90 02/08 0515 89 8 103/58 74 93 02/08 0500 86 26 111/59 78 93 02/08 0445 84 25 96/52 69 90 02/08 0430 84 26 103/58 78 91 02/08 0415 82 26 97/55 72 93 02/08 0400 83 28 95/51 68 93 02/08 0345 83 27 96/51 69 91 02/08 0330 83 25 100/58 75 92 02/08 0300 82 22 95/54 69 92 02/08 0230 79 27 91/51 66 93 02/08 0200 80 25 95/51 68 94 02/08 0130 80 27 93/52 69 94 02/08 0100 81 26 93/54 68 94 02/08 0030 82 27 96/55 73 93 02/08 0000 85 30 106/55 75 94 02/07 2330 83 23 108/56 76 94 02/07 2300 80 23 101/54 73 95 02/07 2230 81 22 104/53 75 96 02/07 2200 80 40 113/56 80 97 02/07 2130 83 33 110/62 79 96 02/07 2100 80 28 113/58 80 98 02/07 2030 80 24 116/60 81 97 02/07 1999 97.6 02/07 1999 80 30 96/51 70 96 02/07 1950 95 Room air 02/07 1900 80 23 89/53 68 97 02/07 1845 78 24 102/58 76 99 02/07 1831 80 31 102/55 75 98 02/07 1815 82 25 93/50 69 02/07 1800 81 44 93/53 72 02/07 1745 83 27 96/54 70 59 02/07 1730 82 33 113/56 80 89 02/07 1715 76 37 110/62 81 92 02/07 1700 72 55 107/57 77 95 02/07 1645 70 20 110/55 78 95 02/07 1637 72 23 112/61 80 96 02/07 1500 75 22 100/58 76 94 02/07 1400 79 26 105/61 78 93 02/07 1300 80 28 97/56 73 96 24 hour I O ending at 0700: 02/08 0700 02/07 1900 Intake Total 500 720 Output Total 925 1285 Balance -425 -565 Intake, 0 Hemodialysis Intake, Oral 500 480 Intake, Oral 240 Supplement Output, Chest 25 45 Tube Drainage Output, Urine 900 1240 PATIENT WEIGHT: Weight (lb): 200 Weight (oz): 13.46 Weight (kg): 91.100 Medications Active Meds + DC'd Last 24 Hrs Amiodarone HCl (CORDARONE) 200 MG BID PO Cefazolin Sodium (KEFZOL OR ANCEF) 2 GM PREOP IVF EMBRYOLOGIST IV (CKD) Albumin Human (ALBUMINAR-25%) 12.5 GM ASDIR PRN IV Sodium Chloride (SODIUM CHLORIDE) 10 ML ASDIR NV N IV Phenylephrine HCl (Phenylephrine PF 500 mg/5 mL Inj) 0 .STK-MED ONE .ROUTE (DC) Cefazolin Sodium (KEFZOL OR ANCEF) 0 .STK-MED ON E .ROUTE (DC) Propofol (DIPRIVAN 200MG/20ML INJECTION) 0 .STK- MED ONE IV (DC) Fentanyl Citrate (SUBLIMAZE) 0 .STK-MED ONE IV ( DC) Dexamethasone Sodium Phosphate (DECADRON) 0 .STK -MED ONE .ROUTE (DC) Etomidate (AMIDATE) 0 .STK-MED ONE IV (DC) Lidocaine HCl (XYLOCAINE) 0 .STK-MED ONE .ROUTE (DC) Ondansetron HCl (ZOFRAN) 0 .STK-MED ONE .ROUTE (DC) Heparin Sodium (HEPARIN SODIUM) 0 .STK-MED ONE . ROUTE (DC) Midodrine (PROAMATINE) 10 MG 0900,1300,1700 PO Sodium Chloride (SODIUM CHLORIDE) 20 ML ASDIR IV Midodrine (PROAMATINE) 5 MG 0900,1300,1700 PO (D C) Sodium Bicarbonate (SODIUM BICARBONATE) 650 MG B ID PO Ipratropium Kersey (ATROVENT) 500 MCG RTQ2H PRN PRN INH Lactulose (LACTULOSE) 20 GM DAILY PRN PRN PO Cyanocobalamin (Vitamin B-12 500 mcg tab) 500 MC G DAILY PO Ferrous Sulfate (FERROUS SULFATE) 325 MG DAILY P O Dopamine HCl/Dextrose (DOPamine 400MG/D5W 250ML) 250 ML ASDIR IV Bisacodyl (DULCOLAX) 10 MG ONCE PRN RECTAL Atorvastatin Calcium (LIPITOR) 40 MG 2100 PO Clopidogrel Bisulfate (Plavix) 75 MG DAILY PO Polyethylene Glycol (MIRALAX) 17 GM DAILY PO Calcium Chloride (CALCIUM CHLORIDE) 1 GM ASDIR P RN IV Sodium Chloride (SODIUM CHLORIDE 0.9%) 100 ML Calcium Chloride (CALCIUM CHLORIDE) 2 GM ASDIR P RN IV Sodium Chloride (SODIUM CHLORIDE 0.9%) 100 ML Magnesium Sulfate (MAGNESIUM SULFATE 4GM/SWFI 10 0ML) 100 ML ASDIR PRN IV Magnesium Sulfate (MAGNESIUM SULFATE 2GM/SWFI 50 ML) 50 ML ASDIR PRN IV Potassium Chloride (KCL 10MEQ/SWFI 50ML) 50 ML A SDIR PRN IV Sodium Chloride (SODIUM CHLORIDE 0.9%) 2,000 ML ASDIR PRN IV Sodium Phosphate (SODIUM PHOSPHATE) 25 MMOL ASDI R PRN IV Sodium Chloride (SODIUM CHLORIDE 0.9%) 250 ML Sodium Phosphate (SODIUM PHOSPHATE) 20 MMOL ASDI R PRN IV Sodium Chloride (SODIUM CHLORIDE 0.9%) 250 ML Sodium Phosphate (SODIUM PHOSPHATE) 15 MMOL ASDI R PRN IV Sodium Chloride (SODIUM CHLORIDE 0.9%) 250 ML Pantoprazole (PROTONIX) 40 MG DAILY@0600 PO Aspirin (ASPIRIN) 81 MG DAILY PO Vasopressin (VASOSTRICT 20 Unit/NS 100ML) 100 ML ASDIR IV (CKD) Amiodarone HCl (CORDARONE) 200 MG TID PO (DC) Docusate Sodium (COLACE) 100 MG BID PO Sennosides (Senna Lax 8.6 MG TABLET) 17.2 MG BED TIME PO Ipratropium Kersey (ATROVENT) 500 MCG RTQ4H INH Acetaminophen (TYLENOL) 650 MG Q4H PRN PRN PO Acetaminophen (TYLENOL) 650 MG Q4H PRN PRN RECTA L Calcium Chloride (CALCIUM CHLORIDE) 1 GM ASDIR P RN IV Dextrose/Water (DEXTROSE 10% IN WATER) 125 ML DIR PRN IV (CKD) Dextrose/Water (DEXTROSE 10% IN WATER) 250 ML DIR PRN IV (CKD) Epinephrine (ADRENALIN CHLORIDE) 4 MG ASDIR IV Dextrose/Water (DEXTROSE 5% WATER) 246 ML Glucagon (GLUCAGON) 1 MG ASDIR PRN IM Magnesium Sulfate (MAGNESIUM SULFATE 4GM/SWFI 10 0ML) 100 ML ASDIR PRN IV Magnesium Sulfate (MAGNESIUM SULFATE 2GM/SWFI 50 ML) 50 ML ASDIR PRN IV Magnesium Sulfate/Dextrose (MAGNESIUM SULFATE 1G M/D5W 100ML) 100 ML ASDIR PRN IV Nitroglycerin/Dextrose (NITROGLYCERIN 50,000MCG/ D5W 250ML) 250 ML ASDIR IV Norepinephrine Bitartrate (NOREPINEPHRINE 8 MG/N S 250 ML) 250 ML TITRATE IV Ondansetron HCl (ZOFRAN) 4 MG Q6H PRN PRN IV Potassium Chloride (KCL 20MEQ/SWFI 100ML) 100 ML ASDIR PRN IV Sodium Bicarbonate (SODIUM BICARBONATE) 50 MEQ A SDIR PRN IV Albumin Human (ALBUMINAR-25%) 12.5 GM ASDIR PRN IV Heparin Sodium (Porcine) (HEPARIN SODIUM) 3,000 UNIT ASDIR PRN DIALYSIS Lidocaine HCl (LIDOCAINE HCL/PF) 0.5 ML ASDIR NV N I-DERMAL (CKD) Mannitol (Mannitol 20%) 12.5 GM ASDIR PRN IV Sodium Chloride (SODIUM CHLORIDE 0.9%) 2,000 ML ASDIR PRN IV Tamsulosin HCl (Flomax 0.4 mg) 0.4 MG BEDTIME PO Physical Exam Head/eyes: atraumatic, normocephalic ENT: moist mucous membranes, normal nose Neck: non-tender, no JVD Extremities: no edema, no swelling 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: alert, oriented X 3, normal speech Skin: dry, intact Results Findings/Data: Laboratory Tests 07/16 07/16 07/15 07/15 0310 0309 1710 1710 Chemistry Sodium (134 - 147 mEq/L) 143 138 Potassium (3.4 - 5.0 mEq/L) 4.3 5.1 H Chloride (100 - 108 mEq/L) 105 103 Carbon Dioxide (21 - 33 mEq/l) 29 24 Anion Gap (0 - 20) 13 16 BUN (7 - 18 mg/dL) 43 H 78 H Creatinine (0.6 - 1.3 mg/dL) 4.0 H 5.9 H Glomerular Filtr Rate (70 - 80) 14.5 L 9.1 L Glucose (70 - 110 mg/dL) 97 102 Calcium (8.0 - 10.5 mg/dL) 8.4 8.5 Magnesium (1.80 - 2.40 mg/dL) 2.10 2.39 Laboratory Tests 07/16 0309 Hematology WBC (4.5 - 11.0 x10 3/uL) 10.8 RBC (4.00 - 5.60 x10 6/uL) 2.73 L Hgb (12.5 - 16.9 g/dL) 8.2 L Hct (37.5 - 50.7 %) 25.6 L MCV (81.0 - 99.0 fL) 93.8 MCH (27.0 - 33.0 pg) 30.0 MCHC (33.0 - 37.0 g/dL) 32.0 L RDW (11.5 - 14.5 %) 16.1 H Plt Count (150 - 400 x10 3/uL) 282 MPV (7.0 - 9.0 fL) 10.7 H Neut % (Auto) (56.0 - 77.0 %) 70.2 Lymph % (Auto) (14.0 - 32.0 %) 7.1 L [place] % (Auto) (4.8 - 9.0 %) 12.2 H Eos % (Auto) (0.3 - 3.7 %) 6.9 H Baso % (Auto) (0.0 - 2.0 %) 0.7 Neut # (Auto) (2.0 - 7.6 x10 3/uL) 7.58 Lymph # (Auto) (1.0 - 3.8 x10 3/uL) 0.77 L [place] # (Auto) (0.1 - 0.8 x10 3/uL) 1.32 H Eos # (Auto) (0.0 - 0.2 x10 3/uL) 0.75 H Baso # (Auto) (0.0 - 0.2 x10 3/uL) 0.08 Abs Immat Gran (auto) (0.00 - 0.03 x10 3/uL) 0. 31 H Add Manual Diff NO Immature Gran % (0.0 - 2.0 %) 2.9 H Nucleated RBC % (0 - 0 %) 0.0 Nucleated RBCs # (Man) (0.0 - 0.1 x10 3/uL) 0.0 0 Radiology data: Recent Impressions: RADIOLOGY - XR CHEST 1 V 07/15 1700 Report Impression - Status: SIGNED Entered: 07/15/2022 1841 IMPRESSION: Placement of right internal jugular central line with tip in the SVC. Impression By: Kourtney Boo M.D. RADIOLOGY - XR CHEST 1 V 07/16 0500 Report Impression - Status: SIGNED Entered: 07/16/2022 0710 IMPRESSION: Removal of the left basilar chest tube. Otherwis e, stable exam. Impression By: [email or web address] Yasmin Sesay M.D. RADIOLOGY - XR CHEST 1 V 07/16 1055 Report Impression - Status: SIGNED Entered: 07/16/2022 1158 IMPRESSION: 1. Small left and stable small right layering pl eural effusion. 2. Left chest tube present. No pneumothorax. 3. Stable bibasilar airspace opacities Impression By: [email or web address] - Noreen Lambert Treatment Prophylaxis Treatment Prophylaxis Drain(s)/tube(s): Drain(s)/tube(s): chest Diagnosis, Assessment Plan Free Text A P: Assessment: 1-CLAUDETTE likely from urinary retention. oliguric AK I now post op, and shock! 2- non-STEMI: multivessel disease w main left. 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 Waters catheter is in place. 4-severe bilateral hydronephrosis 5- shock : Cardiogenic 6-hyperlipidemia 7- AGMA Plan: - unknown Scr baseline but ultrasound suggestive MRD. - Ultrasound showed severe bilateral hydronephro sis. Continue Waters catheter. Urology consulted. - He underwent LHC on 07/03. Started on HD on 06/09 7. - s/p CABG X5 on 07/08 -Excellent urine output after Lasix but no clear ance w acidosis and hyperkalemia. - stopped NaHCO3 as started on HD. -TDC placed 07/15. plan for HD again on 07/16. - repeat labs in am. Consultants: cardiology, cardiovascular surgery, nephrology Electronically Signed by Evelina Plaza MD on 01/28 at 1221 RPT #:[id number] END OF REPORT 2022-07-15 20:00:00-00:00 [facility] Hospitalist Progress Note REPORT#:[id number] REPORT STATUS: Signed DATE:07/15/22 TIME: 1999 PATIENT: SHERRI ARCE UNIT #: [id number] ROOM/BED: [place] [id number] : 42 AGE: 81 SEX: M ATTEND: Sam Mcarthur MD ADM AUTHOR: Sarbjit Mcarthur MD * ALL edits or amendments must be made on the el [employer]/computer document * Subjective Chief complaint: Status post CABG x5 on 07/09, Doing well today. Am bulated around the unit. HPI: 81 y/o man with PMHx of HTN, Dyslipidemia [facility] with chest pain and found to have a NSTEMI and also acute renal failure. Underwent cardiac c ath yesterday and found to have severe CAD including left main disease. Transfer here f or CABG evaluation. He also underwent HD Thursday and Thursday of this week. HD catheter was place at [facility]. Currently not having any chest pain. Had chest pain with SOB when he presentted to the previous hospital. Objective General VS/I O: Vital Signs: Date Time Temp Pulse Resp B/P B/P Pulse O2 O2 F low FiO2 Mean Ox Delivery Rate 02/07 1900 80 23 89/53 68 97 02/07 1845 78 24 102/58 76 99 02/07 1831 80 31 102/55 75 98 02/07 1815 82 25 93/50 69 02/07 1800 81 44 93/53 72 02/07 1745 83 27 96/54 70 59 02/07 1730 82 33 113/56 80 89 02/07 1715 76 37 110/62 81 92 02/07 1700 72 55 107/57 77 95 02/07 1645 70 20 110/55 78 95 02/07 1637 72 23 112/61 80 96 02/07 1500 75 22 100/58 76 94 02/07 1400 79 26 105/61 78 93 02/07 1300 80 28 97/56 73 96 02/07 1200 80 30 88/52 65 93 02/07 1100 82 28 80/51 61 95 02/07 1037 87 31 86/52 64 95 02/07 1000 81 27 96/52 68 95 02/07 0900 80 28 101/55 74 94 02/07 0800 98.1 02/07 0800 82 29 94/50 65 93 02/07 0713 88 29 93 02/07 0700 90 29 110/57 77 91 02/07 0630 86 28 92 02/07 0600 84 29 100/55 72 90 02/07 0530 84 28 92 02/07 0500 88 30 94/52 68 91 02/07 0430 84 27 91 02/07 0400 87 27 116/57 81 92 02/07 0330 88 21 95 02/07 0300 83 26 104/56 76 90 02/07 0230 85 26 92 02/07 0130 87 28 92 02/07 0124 87 26 110/56 78 93 07/15 0100 88 30 93 07/15 0030 90 28 92 07/15 0000 90 28 93 07/14 2330 87 28 91 07/14 2300 85 27 95 07/14 2230 83 28 93 07/14 2200 82 27 96 07/14 2130 78 25 94 07/14 2100 80 24 95 24 hour I O ending at 0700: 07/15 0700 07/14 1900 Intake Total 500 705 Output Total 2160 1825 Balance -1660 -1120 Intake, Oral 500 475 Intake, Oral 230 Supplement Output, Chest 60 225 Tube Drainage Output, Urine 2100 1600 PATIENT WEIGHT: Weight (lb): 200 Weight (oz): 13.46 Weight (kg): 91.100 Physical Exam General appearance: alert, awake, oriented Head/Eyes: atraumatic, EOMI, normal conjunctiva/ sclera, normocephalic, PERRLA ENT: moist mucosal membranes Neck: full range of motion, no bruit/NL carotids , no JVD Cardiovascular: normal heart sounds, regular rat e rhythm Respiratory: chest tube, aerating well, clear to auscultation, symmetric expansion, no distress Abdomen: non-tender, normal bowel sounds , soft, no distention, no guarding, no rebound Extremities: moves all, no cyanosis, no edema Musculoskeletal: normal inspection 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ALTH: alert, oriented X 3, normal speech, n o motor deficits, no sensory deficits Skin: intact, normal color, no rash Psychiatry: normal affect Results Findings/Data: Laboratory Tests 07/15 07/15 07/15 07/15 07/14 1710 1710 0320 0320 2014 Chemistry Sodium (134 - 147 mEq/L) 138 138 137 Potassium (3.4 - 5.0 mEq/L) 5.1 H 5.2 H 5.1 H Chloride (100 - 108 mEq/L) 103 105 104 Carbon Dioxide (21 - 33 mEq/l) 24 22 24 Anion Gap (0 - 20) 16 16 14 BUN (7 - 18 mg/dL) 78 H 61 H 69 H Creatinine (0.6 - 1.3 mg/dL) 5.9 H 5.6 H 5.4 H Glomerular Filtr Rate (70 - 80) 9.1 L 9.7 L 10. 1 L Glucose (70 - 110 mg/dL) 102 82 124 H Calcium (8.0 - 10.5 mg/dL) 8.5 8.1 8.2 Magnesium (1.80 - 2.40 mg/dL) 2.39 2.36 Laboratory Tests 07/15 0320 Hematology WBC (4.5 - 11.0 x10 3/uL) 14.4 H RBC (4.00 - 5.60 x10 6/uL) 2.85 L Hgb (12.5 - 16.9 g/dL) 8.6 L Hct (37.5 - 50.7 %) 26.7 L MCV (81.0 - 99.0 fL) 93.7 MCH (27.0 - 33.0 pg) 30.2 MCHC (33.0 - 37.0 g/dL) 32.2 L RDW (11.5 - 14.5 %) 16.2 H Plt Count (150 - 400 x10 3/uL) 250 MPV (7.0 - 9.0 fL) 10.9 H Neut % (Auto) (56.0 - 77.0 %) 75.0 Lymph % (Auto) (14.0 - 32.0 %) 5.4 L [place] % (Auto) (4.8 - 9.0 %) 10.3 H Eos % (Auto) (0.3 - 3.7 %) 6.3 H Baso % (Auto) (0.0 - 2.0 %) 0.8 Neut # (Auto) (2.0 - 7.6 x10 3/uL) 10.83 H Lymph # (Auto) (1.0 - 3.8 x10 3/uL) 0.78 L [place] # (Auto) (0.1 - 0.8 x10 3/uL) 1.48 H Eos # (Auto) (0.0 - 0.2 x10 3/uL) 0.91 H Baso # (Auto) (0.0 - 0.2 x10 3/uL) 0.11 Abs Immat Gran (auto) (0.00 - 0.03 x10 3/uL) 0. 32 H Add Manual Diff NO Immature Gran % (0.0 - 2.0 %) 2.2 H Nucleated RBC % (0 - 0 %) 0.0 Nucleated RBCs # (Man) (0.0 - 0.1 x10 3/uL) 0.0 0 Radiology data: Recent Impressions: RADIOLOGY - XR CHEST 1 V 07/15 0655 Report Impression - Status: SIGNED Entered: 07/15/2022 0727 IMPRESSION: Left apical and basilar chest tubes. No pneumoth orax. Small bilateral pleural effusions. Bibasilar airspace opacities, mildly worsened. Impression By: [email or web address] Yogesh Sanders RADIOLOGY - XR CHEST 1 V 07/15 1700 Report Impression - Status: SIGNED Entered: 07/15/2022 1841 IMPRESSION: Placement of right internal jugular central line with tip in the SVC. Impression By: Kourtney Boo M.D. Treatment Prophylaxis Treatment Prophylaxis Drain(s)/tube(s): Drain(s)/tube(s): chest Diagnosis, Assessment Plan Consultants: cardiology, cardiovascular surgery, nephrology Free Text DxA P Notes Free text DxA P notes: Assessment and plans: CAD (coronary artery disease) patient presented with NSTEMI and found to hve severe CAD. Cardiac cath shows: Left Main - Distal 70% LAD - Proximal 80% with another 60% and 70% les sions Cir - Proximal 80%,mid 80-90%, Distal 70% and O M 60% RCA - large dominant with proximal 40%, Mid 60% . Cardiology and CV surgeon consulted echo: ef 30-34%, mod hypokinesis of entire myoc ardium, grade 1 diastolic dysfunction Carotid Dopplers negative PFTs PT/OT s/p CABG X5 on 07/08 Patient on ASA, plavix, BB and Statin on amiodarone Beta-tomas as tolerated for low BP, Acute systolic heart failure Echocardiac with estimated LVEF of 30 to 34% wi th grade 1 diastolic dysfunction -s/p Lasix 20 mg twice daily 07/05 -on metoprolol 12.5 mg bid on hold now, BP low -no ACEI/ spironolactione for CLAUDETTE -Strict I's and O's, daily weights -Start GDMT prior to discharge CLAUDETTE (acute kidney injury) No prior Hx of renal disease. hx of BPH and casimiro ated with Fosamax w/o improvement nd continue to h ave difficulty urinating. On admission was found to be on acute renal filaure and had received HD tw ice prior to arrival here ( thursday and thursday). Creatinine this am was 7.4, BUN 68 * Probably due to obstructive uropathy * waters already in place * Nephrology consuled for HD On daily hemodialysis as per nephrology Anemia: -Hemoglobin dropped to 6.5 s/p CABG 2 PRBC BT ordered 07/09 Monitor H H Leukocytosis: -Afebrile Monitor WBC count HTN (hypertension) patient on metoprolol 12.5 mg BID, will adjust as needed On labetalol/hydralazine as needed Dyslipidemia on Lipitor 40mg po daliy. BPH (benign prostatic hyperplasia) Started on Flomax at the previous hospital, thais l continue with it. Waters catheter in place, continue Waters cathete r as per nephrology 07/05 Goiter Hx of Goiter and surgical resection. TSH 3.33, within normal limits. Patient is not on Thyroid medication. anemia of chronic kidney disease Hemoglobin 8.3, monitor Hypokalemia resolved UTI continue Rocephin for empiric treatment pend ing results of urine culture No growth for 48 hours DVT prophylaxis: Heparin 5000 units every 8 hour s Diet: Cardiac diet CODE STATUS: Full code Disposition: Status post CABG x5 on 07/09, hemodia lysis as per nephrology. Worked with PT in his room, on 2 L oxygen via na cj cannula. PT/OT on board. Rehab consulted. Continue CVICU care. Quality: Gen Med Crit Care VTE Prophylaxis VTE prophylaxis initiated: yes Current Medications Current medication review: I attest that the foregoing medication list in t he medical record is true, accurate, and complete to the best of my knowled ge. Advanced Care Plan 65 or Older Discussed with: patient Discussion included: living will (none), power of employment law attorney (none), code status ( full code) at 2000 RPT #:[id number] END OF REPORT 2022-07-15 18:11:00-00:00 [facility]ACL [facility] ([facility] Nephrology Progress Note REPORT#:[id number] REPORT STATUS: Signed DATE:07/15/22 TIME: 1810 PATIENT: SHERRI ARCE UNIT #: [id number] ROOM/BED: 2202-1 : 42 AGE: 81 SEX: M ATTEND: Que Mcarthur MD ADM AUTHOR: Evelina Plaza MD * ALL edits or amendments must be made on the [employer]/computer document * Subjective Chief complaint: he was in OR for TDC placement. Objective General VS/I O: Vital Signs: Date Time Temp Pulse Resp B/P B/P Pulse O2 O2 F low FiO2 Mean Ox Delivery Rate 02/07 1500 75 22 100/58 76 94 02/07 1400 79 26 105/61 78 93 02/07 1300 80 28 97/56 73 96 02/07 1200 80 30 88/52 65 93 02/07 1100 82 28 80/51 61 95 02/07 1037 87 31 86/52 64 95 02/07 1000 81 27 96/52 68 95 02/07 0900 80 28 101/55 74 94 02/07 0800 98.1 02/07 0800 82 29 94/50 65 93 02/07 0713 88 29 93 02/07 0700 90 29 110/57 77 91 02/07 0630 86 28 92 02/07 0600 84 29 100/55 72 90 02/07 0530 84 28 92 02/07 0500 88 30 94/52 68 91 02/07 0430 84 27 91 02/07 0400 87 27 116/57 81 92 02/07 0330 88 21 95 02/07 0300 83 26 104/56 76 90 02/07 0230 85 26 92 02/07 0130 87 28 92 02/07 0124 87 26 110/56 78 93 02/07 0100 88 30 93 02/07 0030 90 28 92 02/07 0000 90 28 93 02/06 2330 87 28 91 02/06 2300 85 27 95 02/06 2230 83 28 93 02/06 2200 82 27 96 02/06 2130 78 25 94 02/06 2100 80 24 95 02/06 1999 98.3 02/06 1999 84 27 123/60 83 98 02/06 1942 99 Room air 24 hour I O ending at 0700: 02/07 0700 02/06 1900 Intake Total 500 705 Output Total 2160 1825 Balance -1660 -1120 Intake, Oral 500 475 Intake, Oral 230 Supplement Output, Chest 60 225 Tube Drainage Output, Urine 2100 1600 PATIENT WEIGHT: Weight (lb): 200 Weight (oz): 13.46 Weight (kg): 91.100 Medications Active Meds + DC'd Last 24 Hrs Amiodarone HCl (CORDARONE) 200 MG BID PO Cefazolin Sodium (KEFZOL OR ANCEF) 2 GM PREOP IVF EMBRYOLOGIST IV (CKD) Phenylephrine HCl (Phenylephrine PF 500 mg/5 mL Inj) 0 .STK-MED ONE .ROUTE (DC) Cefazolin Sodium (KEFZOL OR ANCEF) 0 .STK-MED ON E .ROUTE (DC) Propofol (DIPRIVAN 200MG/20ML INJECTION) 0 .STK- MED ONE IV (DC) Fentanyl Citrate (SUBLIMAZE) 0 .STK-MED ONE IV ( DC) Dexamethasone Sodium Phosphate (DECADRON) 0 .STK -MED ONE .ROUTE (DC) Etomidate (AMIDATE) 0 .STK-MED ONE IV (DC) Lidocaine HCl (XYLOCAINE) 0 .STK-MED ONE .ROUTE (DC) Ondansetron HCl (ZOFRAN) 0 .STK-MED ONE .ROUTE ( DC) Heparin Sodium (HEPARIN SODIUM) 0 .STK-MED ONE . ROUTE (DC) Midodrine (PROAMATINE) 10 MG 0900,1300,1700 PO Dexamethasone Sodium Phosphate (DECADRON) 0 .STK -MED ONE .ROUTE (DC) Fentanyl Citrate (SUBLIMAZE) 0 .STK-MED ONE .ROU TE (DC) Heparin Sodium (HEPARIN SODIUM) 0 .STK-MED ONE . ROUTE (DC) Lidocaine HCl (XYLOCAINE) 0 .STK-MED ONE .ROUTE (DC) Ondansetron HCl (ZOFRAN) 0 .STK-MED ONE .ROUTE ( DC) Propofol (DIPRIVAN 200MG/20ML INJECTION) 20 ML . STK-MED ONE IV (DC) Sodium Chloride (SODIUM CHLORIDE) 20 ML ASDIR IV Dextrose/Water (DEXTROSE 10% IN WATER) [address] AT STA IV (DC) Insulin Human Regular (HUMAN INSULIN REG) 10 UNI TS STAT STA IV (DC) Dextrose/Water (DEXTROSE 10% IN WATER) [address] AT STA IV (DC) Insulin Human Regular (HUMAN INSULIN REG) 10 UNI TS STAT STA IV (DC) Sodium Polystyrene Sulfonate (KAYEXELATE) 30 GM STAT STA PO (DC) Sodium Polystyrene Sulfonate (KAYEXELATE) 15 GM ONCE ONE PO (DC) Midodrine (PROAMATINE) 5 MG 0900,1300,1700 PO (D C) Sodium Bicarbonate (SODIUM BICARBONATE) 650 MG B ID PO Ipratropium Kersey (ATROVENT) 500 MCG RTQ2H PRN PRN INH Lactulose (LACTULOSE) 20 GM DAILY PRN PRN PO Cyanocobalamin (Vitamin B-12 500 mcg tab) 500 MC G DAILY PO Ferrous Sulfate (FERROUS SULFATE) 325 MG DAILY P O Dopamine HCl/Dextrose (DOPamine 400MG/D5W 250ML) 250 ML ASDIR IV Bisacodyl (DULCOLAX) 10 MG ONCE PRN RECTAL Atorvastatin Calcium (LIPITOR) 40 MG 2100 PO Clopidogrel Bisulfate (Plavix) 75 MG DAILY PO Polyethylene Glycol (MIRALAX) 17 GM DAILY PO Miscellaneous Information (PHARMACY TO DOSE/EVAL UATE) 1 EACH ASDIR MISC (DC) Calcium Chloride (CALCIUM CHLORIDE) 1 GM ASDIR P RN IV Sodium Chloride (SODIUM CHLORIDE 0.9%) 100 ML Calcium Chloride (CALCIUM CHLORIDE) 2 GM ASDIR P RN IV Sodium Chloride (SODIUM CHLORIDE 0.9%) 100 ML Magnesium Sulfate (MAGNESIUM SULFATE 4GM/SWFI 10 0ML) 100 ML ASDIR PRN IV Magnesium Sulfate (MAGNESIUM SULFATE 2GM/SWFI 50 ML) 50 ML ASDIR PRN IV Miscellaneous (PRISMASATE BGK 4/2.5 SOLUTION) 5, 000 ML ASDIR DIALYSIS ( DC) Potassium Chloride (KCL 10MEQ/SWFI 50ML) 50 ML A SDIR PRN IV Sodium Chloride (SODIUM CHLORIDE 0.9%) 2,000 ML ASDIR PRN IV Sodium Phosphate (SODIUM PHOSPHATE) 25 MMOL ASDI R PRN IV Sodium Chloride (SODIUM CHLORIDE 0.9%) 250 ML Sodium Phosphate (SODIUM PHOSPHATE) 20 MMOL ASDI R PRN IV Sodium Chloride (SODIUM CHLORIDE 0.9%) 250 ML Sodium Phosphate (SODIUM PHOSPHATE) 15 MMOL ASDI R PRN IV Sodium Chloride (SODIUM CHLORIDE 0.9%) 250 ML Pantoprazole (PROTONIX) 40 MG DAILY@0600 PO Aspirin (ASPIRIN) 81 MG DAILY PO Vasopressin (VASOSTRICT 20 Unit/NS 100ML) 100 M L ASDIR IV (CKD) Amiodarone HCl (CORDARONE) 200 MG TID PO Docusate Sodium (COLACE) 100 MG BID PO Sennosides (Senna Lax 8.6 MG TABLET) 17.2 MG BED TIME PO Ipratropium Kersey (ATROVENT) 500 MCG RTQ4H INH Acetaminophen (TYLENOL) 650 MG Q4H PRN PRN PO Acetaminophen (TYLENOL) 650 MG Q4H PRN PRN RECTA L Calcium Chloride (CALCIUM CHLORIDE) 1 GM ASDIR P RN IV Dextrose/Water (DEXTROSE 10% IN WATER) 125 ML DIR PRN IV (CKD) Dextrose/Water (DEXTROSE 10% IN WATER) 250 ML DIR PRN IV (CKD) Epinephrine (ADRENALIN CHLORIDE) 4 MG ASDIR IV Dextrose/Water (DEXTROSE 5% WATER) 246 ML Glucagon (GLUCAGON) 1 MG ASDIR PRN IM Magnesium Sulfate (MAGNESIUM SULFATE 4GM/SWFI 10 0ML) 100 ML ASDIR PRN IV Magnesium Sulfate (MAGNESIUM SULFATE 2GM/SWFI 50 ML) 50 ML ASDIR PRN IV Magnesium Sulfate/Dextrose (MAGNESIUM SULFATE 1G M/D5W 100ML) 100 ML ASDIR PRN IV Nitroglycerin/Dextrose (NITROGLYCERIN 50,000MCG/ D5W 250ML) 250 ML ASDIR IV Norepinephrine Bitartrate (NOREPINEPHRINE 8 MG/N S 250 ML) 250 ML TITRATE IV Ondansetron HCl (ZOFRAN) 4 MG Q6H PRN PRN IV Potassium Chloride (KCL 20MEQ/SWFI 100ML) 100 ML ASDIR PRN IV Sodium Bicarbonate (SODIUM BICARBONATE) 50 MEQ A SDIR PRN IV Albumin Human (ALBUMINAR-25%) 12.5 GM ASDIR PRN IV Heparin Sodium (Porcine) (HEPARIN SODIUM) 3,000 UNIT ASDIR PRN DIALYSIS Lidocaine HCl (LIDOCAINE HCL/PF) 0.5 ML ASDIR NV N I-DERMAL (CKD) Mannitol (Mannitol 20%) 12.5 GM ASDIR PRN IV Sodium Chloride (SODIUM CHLORIDE 0.9%) 2,000 ML ASDIR PRN IV Tamsulosin HCl (Flomax 0.4 mg) 0.4 MG BEDTIME PO Treatment Prophylaxis Treatment Prophylaxis Drain(s)/tube(s): Drain(s)/tube(s): chest Diagnosis, Assessment Plan Free Text A P: Assessment: 1-CLAUDETTE likely from urinary retention. oliguric AK I now post op, and shock! 2- non-STEMI: multivessel disease w main left. 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 Waters catheter is in place. 4-severe bilateral hydronephrosis 5- shock : Cardiogenic 6-hyperlipidemia 7- AGMA Plan: - unknown Scr baseline but ultrasound suggestive MRD. - Ultrasound showed severe bilateral hydronephro sis. Continue Waters catheter. Urology consulted. - He underwent LHC on 07/03. Started on HD withou t UF on 07/04. - s/p CABG X5 on 07/08 -Excellent urine output after Lasix but no clear ance w acidosis and hyperkalemia. - on NaHCO3 tabs -TDC placed 07/15. plan for HD. Consultants: cardiology, cardiovascular surgery, nephrology Electronically Signed by Evelina Plaza MD on 12/28 at 1819 RPT #:[id number] END OF REPORT 2022-07-15 16:40:00-00:00 [id number] [place] [address] PATIENT NAME: SHERIR ARCE ADMIT DATE: 07/02/22 ACCOUNT NO: [id number] ROOM NO: [facility] AGE: 81 REPORT TYPE: OPERATIVE REPORT SEX: M ADMITTING PHYSICIAN:Srinaht Kaur MD ATTENDING PHYSICIAN:Srinath Kaur MD OPERATION DATE: 07/15/2022 PREOPERATIVE DIAGNOSIS: End-stage renal disease on hemodialysis. POSTOPERATIVE DIAGNOSIS: End-stage renal disease on hemodialysis. PROCEDURE: 1. Placement of tunneled dialysis catheter (BioF lo DuraMax 28 cm). 2. Cannulation of the internal jugular vein unde r ultrasound guidance. SURGEON: Lina Schwarz MD FOUR ROLL CALENDER OPERATOR: None. ANESTHESIOLOGIST: Dr. Adams. ANESTHESIA: MAC. ESTIMATED BLOOD LOSS: 5 mL INDICATIONS: Mr. Arce is a 81-year-old gentleman with end-stage renal disease and coronary artery disease. He was started on h emodialysis preoperatively. Following coronary artery by pass graft surgery his kidney function improved and hence the temporary dialysis catheter was removed, but unfortunately for last 24 hours the patient's kidney f unction has deteriorated and an decision was made to place a tunneled dialysis catheter. FINDINGS: The fluoroscopy confirmed the position of the tip of the catheter in the right atrium. PROCEDURE IN DETAIL: Mr. Arce was identified in t he preoperative holding area, brought to the operating room and placed supine on the operating table. After induction of anesthesia, the right side of the n anoop was prepped and draped in standard surgical fashion. Using ultrasound, the internal jugular vein was localized and a wire was placed in the internal jugular vein using modified Seldinger technique. Next, half a centimeter inc ision was made in the infraclavicular region. The tunneled catheter wa s then passed through this up to the guidewire in the neck, making sure that t he cuff was under the skin. Next a breakable sheath was placed in the digital intern al jugular vein over the guidewire. The dialysis catheter tip was then p assed through the breakable sheath into the right atrium. The sheath was the n broken and removed. A fluoroscopy was performed of the neck to make nair re that there was no kink in the tunneled catheter. The catheter PATIENT NAME: SHERRI ARCE was then secured to the skin using 2 interrupted nylon suture. Catheter was primed with heparin. Subcuticular suture was roshan en in the neck to close the puncture site incision. Sterile dressing was beryl lied. Anesthesia was then reversed and the patient was moved to PACU in st able condition. Dictated By: Lina Schwarz MD Date Dictated: 07/15/2022 16:40:43 Date Transcribed: 07/15/2022 23:26:18 AC/SVR Receipt ID: [id number] Authenticated and Edited by Vinay Schwarz MD On 07/18/22 4:47:58 PM at 0451 PATIENT NAME: SHERRI ARCE 2022-07-15 12:55:00-00:00 [facility] Progress Note REPORT#:[id number] REPORT STATUS: Signed DATE:07/15/22 TIME: 1255 PATIENT: SHERRI ARCE UNIT #: [id number] ROOM/BED: [facility]-1 : 42 AGE: 81 SEX: M ATTEND: Srinath Kaur MD ADM AUTHOR: Sonya Stacy CNP * ALL edits or amendments must be made on the [email or web address] document * Subjective Comments: OOB to chair, has significant LE edema. Objective General VS/I O: 24 hour I O ending at 0700: 07 0700 02/06 1900 Intake Total 500 705 Output Total 2160 1825 Balance -1660 -1120 Intake, Oral 500 475 Intake, Oral 230 Supplement Output, Chest 60 225 Tube Drainage Output, Urine 2100 1600 Vital Signs: Date Time Temp Pulse Resp B/P B/P Pulse O2 O2 F low FiO2 Mean Ox Delivery Rate / 0900 80 28 101/55 74 94 02/07 0800 36.7 02/07 0800 82 29 94/50 65 93 02/07 0713 88 29 93 02/07 0700 90 29 110/57 77 91 02/07 0630 86 28 92 02/07 0600 84 29 100/55 72 90 02/07 0530 84 28 92 02/07 0500 88 30 94/52 68 91 02/07 0430 84 27 91 02/07 0400 87 27 116/57 81 92 02/07 0330 88 21 95 02/07 0300 83 26 104/56 76 90 02/07 0230 85 26 92 02/07 0130 87 28 92 02/07 0124 87 26 110/56 78 93 02/07 0100 88 30 93 02/07 0030 90 28 92 02/07 0000 90 28 93 02/06 2330 87 28 91 02/06 2300 85 27 95 02/06 2230 83 28 93 02/06 2200 82 27 96 02/06 2130 78 25 94 02/06 2100 80 24 95 02/06 2000 36.8 02/06 2000 84 27 123/60 83 98 02/06 1942 99 Room air 02/06 1800 83 26 123/60 86 95 02/06 1700 77 27 121/58 83 95 02/06 1612 79 24 131/64 91 97 02/06 1600 36.7 02/06 1511 97 Room air 21 02/06 1505 82 28 137/65 94 97 02/06 1400 75 23 112/56 78 96 02/06 1300 81 28 121/57 82 95 PATIENT WEIGHT: Weight (lb): 200 Weight (oz): 13.46 Weight (kg): 91.100 Medications: Active Meds + DC'd Last 24 Hrs Amiodarone HCl (CORDARONE) 200 MG BID PO Cefazolin Sodium (KEFZOL OR ANCEF) 2 GM PREOP IVF EMBRYOLOGIST IV (CKD) Midodrine (PROAMATINE) 10 MG 0900,1300,1700 PO Dexamethasone Sodium Phosphate (DECADRON) 0 .STK -MED ONE .ROUTE (DC) Fentanyl Citrate (SUBLIMAZE) 0 .STK-MED ONE .ROU TE (DC) Heparin Sodium (HEPARIN SODIUM) 0 .STK-MED ONE . ROUTE (DC) Lidocaine HCl (XYLOCAINE) 0 .STK-MED ONE .ROUTE (DC) Ondansetron HCl (ZOFRAN) 0 .STK-MED ONE .ROUTE ( DC) Propofol (DIPRIVAN 200MG/20ML INJECTION) 20 ML . STK-MED ONE IV (DC) Sodium Chloride (SODIUM CHLORIDE) 20 ML ASDIR IV Dextrose/Water (DEXTROSE 10% IN WATER) [address] AT STA IV (DC) Insulin Human Regular (HUMAN INSULIN REG) 10 UNI TS STAT STA IV (DC) Dextrose/Water (DEXTROSE 10% IN WATER) [address] AT STA IV (DC) Insulin Human Regular (HUMAN INSULIN REG) 10 UNI TS STAT STA IV (DC) Sodium Polystyrene Sulfonate (KAYEXELATE) 30 GM STAT STA PO (DC) Sodium Polystyrene Sulfonate (KAYEXELATE) 15 GM ONCE ONE PO (DC) Furosemide (LASIX 40 mg/4 mL INJECTION) 40 MG ON CE ONE IV (DC) Midodrine (PROAMATINE) 5 MG 0900,1300,1700 PO (D C) Sodium Bicarbonate (SODIUM BICARBONATE) 650 MG B ID PO Ipratropium Kersey (ATROVENT) 500 MCG RTQ2H PRN PRN INH Lactulose (LACTULOSE) 20 GM DAILY PRN PRN PO Cyanocobalamin (Vitamin B-12 500 mcg tab) 500 MC G DAILY PO Ferrous Sulfate (FERROUS SULFATE) 325 MG DAILY P O Dopamine HCl/Dextrose (DOPamine 400MG/D5W 250ML) 250 ML ASDIR IV Bisacodyl (DULCOLAX) 10 MG ONCE PRN RECTAL Atorvastatin Calcium (LIPITOR) 40 MG 2100 PO Clopidogrel Bisulfate (Plavix) 75 MG DAILY PO Polyethylene Glycol (MIRALAX) 17 GM DAILY PO Miscellaneous Information (PHARMACY TO DOSE/EVAL UATE) 1 EACH ASDIR MISC (DC) Calcium Chloride (CALCIUM CHLORIDE) 1 GM ASDIR P RN IV Sodium Chloride (SODIUM CHLORIDE 0.9%) 100 ML Calcium Chloride (CALCIUM CHLORIDE) 2 GM ASDIR P RN IV Sodium Chloride (SODIUM CHLORIDE 0.9%) 100 ML Magnesium Sulfate (MAGNESIUM SULFATE 4GM/SWFI 10 0ML) 100 ML ASDIR PRN IV Magnesium Sulfate (MAGNESIUM SULFATE 2GM/SWFI 50 ML) 50 ML ASDIR PRN IV Miscellaneous (PRISMASATE BGK 4/2.5 SOLUTION) 5, 000 ML ASDIR DIALYSIS ( DC) Potassium Chloride (KCL 10MEQ/SWFI 50ML) 50 ML A SDIR PRN IV Sodium Chloride (SODIUM CHLORIDE 0.9%) 2,000 ML ASDIR PRN IV Sodium Phosphate (SODIUM PHOSPHATE) 25 MMOL ASDI R PRN IV Sodium Chloride (SODIUM CHLORIDE 0.9%) 250 ML Sodium Phosphate (SODIUM PHOSPHATE) 20 MMOL ASDI R PRN IV Sodium Chloride (SODIUM CHLORIDE 0.9%) 250 ML Sodium Phosphate (SODIUM PHOSPHATE) 15 MMOL ASDI R PRN IV Sodium Chloride (SODIUM CHLORIDE 0.9%) 250 ML Pantoprazole (PROTONIX) 40 MG DAILY@0600 PO Aspirin (ASPIRIN) 81 MG DAILY PO Vasopressin (VASOSTRICT 20 Unit/NS 100ML) 100 ML ASDIR IV (CKD) Amiodarone HCl (CORDARONE) 200 MG TID PO Docusate Sodium (COLACE) 100 MG BID PO Sennosides (Senna Lax 8.6 MG TABLET) 17.2 MG BED TIME PO Ipratropium Kersey (ATROVENT) 500 MCG RTQ4H INH Acetaminophen (TYLENOL) 650 MG Q4H PRN PRN PO Acetaminophen (TYLENOL) 650 MG Q4H PRN PRN RECTA L Calcium Chloride (CALCIUM CHLORIDE) 1 GM ASDIR P RN IV Dextrose/Water (DEXTROSE 10% IN WATER) 125 ML DIR PRN IV (CKD) Dextrose/Water (DEXTROSE 10% IN WATER) 250 ML DIR PRN IV (CKD) Epinephrine (ADRENALIN CHLORIDE) 4 MG ASDIR IV Dextrose/Water (DEXTROSE 5% WATER) 246 ML Glucagon (GLUCAGON) 1 MG ASDIR PRN IM Magnesium Sulfate (MAGNESIUM SULFATE 4GM/SWFI 10 0ML) 100 ML ASDIR PRN IV Magnesium Sulfate (MAGNESIUM SULFATE 2GM/SWFI 50 ML) 50 ML ASDIR PRN IV Magnesium Sulfate/Dextrose (MAGNESIUM SULFATE 1G M/D5W 100ML) 100 ML ASDIR PRN IV Nitroglycerin/Dextrose (NITROGLYCERIN 50,000MCG/ D5W 250ML) 250 ML ASDIR IV Norepinephrine Bitartrate (NOREPINEPHRINE 8 MG/N S 250 ML) 250 ML TITRATE IV Ondansetron HCl (ZOFRAN) 4 MG Q6H PRN PRN IV Potassium Chloride (KCL 20MEQ/SWFI 100ML) 100 ML ASDIR PRN IV Sodium Bicarbonate (SODIUM BICARBONATE) 50 MEQ A SDIR PRN IV Albumin Human (ALBUMINAR-25%) 12.5 GM ASDIR PRN IV Heparin Sodium (Porcine) (HEPARIN SODIUM) 3,000 UNIT ASDIR PRN DIALYSIS Lidocaine HCl (LIDOCAINE HCL/PF) 0.5 ML ASDIR NV N I-DERMAL (CKD) Mannitol (Mannitol 20%) 12.5 GM ASDIR PRN IV Sodium Chloride (SODIUM CHLORIDE 0.9%) 2,000 ML ASDIR PRN IV Tamsulosin HCl (Flomax 0.4 mg) 0.4 MG BEDTIME PO Status post: 07/08/22 CABG x 5 (MISTRY-LAD, SVG-Ladonna, SVG-OM1< SV G-OM3, SVG-PDA) ALAA Physical Exam General appearance: alert, awake, oriented Cardiovascular: CV assessment: pedal edema, regular rate and rh ythm, no murmur Respiratory: decreased breath sounds, no distres s Abdomen: soft, non-tender, normal bowel sounds, no distention, no guarding Upper extremity: UE assessment: normal temperature, no edema Lower extremity: LE assessment: edema (2 to 3+ pitting edema), n ormal temperature, no edema Musculoskeletal: normal inspection 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: alert, oriented X 3, normal speech Skin: dry Psychiatry: normal affect Results Findings/Data: Laboratory Tests 07/15 07/15 07/14 0320 0320 2014 Chemistry Sodium (134 - 147 mEq/L) 138 137 Potassium (3.4 - 5.0 mEq/L) 5.2 H 5.1 H Chloride (100 - 108 mEq/L) 105 104 Carbon Dioxide (21 - 33 mEq/l) 22 24 Anion Gap (0 - 20) 16 14 BUN (7 - 18 mg/dL) 61 H 69 H Creatinine (0.6 - 1.3 mg/dL) 5.6 H 5.4 H Glomerular Filtr Rate (70 - 80) 9.7 L 10.1 L Glucose (70 - 110 mg/dL) 82 124 H Calcium (8.0 - 10.5 mg/dL) 8.1 8.2 Magnesium (1.80 - 2.40 mg/dL) 2.36 Laboratory Tests 07/15 0320 Hematology WBC (4.5 - 11.0 x10 3/uL) 14.4 H RBC (4.00 - 5.60 x10 6/uL) 2.85 L Hgb (12.5 - 16.9 g/dL) 8.6 L Hct (37.5 - 50.7 %) 26.7 L MCV (81.0 - 99.0 fL) 93.7 MCH (27.0 - 33.0 pg) 30.2 MCHC (33.0 - 37.0 g/dL) 32.2 L RDW (11.5 - 14.5 %) 16.2 H Plt Count (150 - 400 x10 3/uL) 250 MPV (7.0 - 9.0 fL) 10.9 H Neut % (Auto) (56.0 - 77.0 %) 75.0 Lymph % (Auto) (14.0 - 32.0 %) 5.4 L [place] % (Auto) (4.8 - 9.0 %) 10.3 H Eos % (Auto) (0.3 - 3.7 %) 6.3 H Baso % (Auto) (0.0 - 2.0 %) 0.8 Neut # (Auto) (2.0 - 7.6 x10 3/uL) 10.83 H Lymph # (Auto) (1.0 - 3.8 x10 3/uL) 0.78 L [place] # (Auto) (0.1 - 0.8 x10 3/uL) 1.48 H Eos # (Auto) (0.0 - 0.2 x10 3/uL) 0.91 H Baso # (Auto) (0.0 - 0.2 x10 3/uL) 0.11 Abs Immat Gran (auto) (0.00 - 0.03 x10 3/uL) 0. 32 H Add Manual Diff NO Immature Gran % (0.0 - 2.0 %) 2.2 H Nucleated RBC % (0 - 0 %) 0.0 Nucleated RBCs # (Man) (0.0 - 0.1 x10 3/uL) 0.0 0 Laboratory Tests 07/15 0320 Chemistry Magnesium (1.80 - 2.40 mg/dL) 2.36 Radiology data: Recent Impressions: RADIOLOGY - XR CHEST 1 V 07/14 1411 Report Impression - Status: SIGNED Entered: 07/14/2022 1509 IMPRESSION: Interval placement of left chest tube near the a pex with decreased size of left pneumothorax now small. Otherwise, stable exam. Impression By: [email or web address] Yasmin Sesay M.D. CAT SCAN - CT GUID [facility] (Biopsy/Asp) 07/14 1509 Report Impression - Status: SIGNED Entered: 07/14/2022 1519 IMPRESSION: CT-guided left chest tube placement. Impression By: [email or web address] Mario Noel RADIOLOGY - XR CHEST 1 V 07/15 0655 Report Impression - Status: SIGNED Entered: 07/15/2022 0727 IMPRESSION: Left apical and basilar chest tubes. No pneumoth orax. Small bilateral pleural effusions. Bibasilar airspace opacities, mildly worsened. Impression By: [email or web address] Yogesh Sanders Results: labs reviewed, vital signs reviewed, [facility] personally rev'd Telemetry Interpretation: sinus rhythm Diagnosis, Assessment Plan Plan discussed with: patient, nurse Free Text DxA P Notes Free Text DxA P Notes: Mr. Arce is a pleasant 81 y/o M w/ PMHx: HTN, HLD presented to [facility] on 06/28/22 for chest pa in and sob. He was diagnosed NSTEMI w/ Trop was peaked 7600's, EKG w/ normal ST and CLAUDETTE w/ Cr 14 on admission. He underwent LHC on 07/[address] Layne which showed severe mLM 70% stenosis, pLAD diffuse 80% stenosis, mLA D 60% and focal 70% stenosis; pLCx 80% stenosis, dLCx 70% stenosis, pOM 60% stenosis; p RCA 40% stenosis, mRCA 60% stenosis and diffuse 50-60% dRCA. He transferred to [facility] for CABG. 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 urology consulted for bladded outlet obstructio n and hydronephrosis, started on Flomax worsening creatinine - for TDC placement today - HTN. hypotension post-op off Pressors. Midodrine 10 mg po tid. - HLD. On statins. - Anemia. monitor at 1710 Electronically Signed by Liset Ennis MD on at 1057 RPT #:[id number] END OF REPORT 2022-07-15 12:32:00-00:00 [facility] ([facility]) Critical Care Progress Note REPORT#:[id number] REPORT STATUS: Signed DATE:07/15/22 TIME: 1232 PATIENT: SHERRI ARCE UNIT #: [id number] ROOM/BED: [place] [address] : 42 AGE: 81 SEX: M ATTEND: Sam Mcarthur MD ADM AUTHOR: Jana Mittal MD * ALL edits or amendments must be made on the el [employer]/computer document * Subjective Chief complaint: CABG HPI: This is 81 years old male with medical history s ignificant for HTN and dyslipidemia [facility] pain and found to have a NSTEMI and also acute r enal failure. He underwent cardiac cath and was found to have sever e CAD including left main disease with EF of 30 to 35% and ischemic cardiomyopathy. Transfer here for CABG evaluation. CV surgery were consulted an d the patient earlier today underwent CABG x 5 (MISTRY -LAD, SVG-Ladonna, SVG-OM1< SVG-OM3, SVG-PDA) and AL AA. His intraoperative course was without significant occurrence. The patient was brought to CVICU intubated and ventilated on milrinone drip, norepinephrine drip, epinephrine drip and vasopressin drip. His initial ABG showed metabolic acidosi s and he received 2 A of sodium bicarb and 1 g of calcium. The patient started to wake up later in the even ing but he looked weak, so he was reversed with neostigmine and glycopyrrolate . His motor strength improved significantly after that and his spontaneous lenard athing trial was good on the following ABG showed some metabolic acid osis. The patient will be extubated to a BiPAP as his CO2 was high on the ABG. Comments: Interval history- Patient creatinine is slightly up still making good urine Objective General VS/I O Last Documented: Result Date Time Pulse Ox 94 07/15 899 B/P 101/55 07/15 899 B/P Mean 74 07/15 899 Pulse 80 07/15 899 Resp 28 07/15 899 Temp 36.7 07/15 799 O2 Delivery Room air 07/14 194 FiO2 21 07/14 1511 O2 Flow Rate 3 07/14 1151 24 hour I O ending at 0700: 07/15 1900 Intake Total 500 705 Output Total 2160 1825 Balance -1660 -1120 Intake, Oral 500 475 Intake, Oral 230 Supplement Output, Chest 60 225 Tube Drainage Output, Urine 2100 1600 PATIENT WEIGHT: Weight (lb): 200 Weight (oz): 13.46 Weight (kg): 91.100 Medications: Active Meds + DC'd Last 24 Hrs Amiodarone HCl (CORDARONE) 200 MG BID PO Cefazolin Sodium (KEFZOL OR ANCEF) 2 GM PREOP IVF EMBRYOLOGIST IV (CKD) Midodrine (PROAMATINE) 10 MG 0900,1300,1700 PO Dexamethasone Sodium Phosphate (DECADRON) 0 .STK -MED ONE .ROUTE (DC) Fentanyl Citrate (SUBLIMAZE) 0 .STK-MED ONE .ROU TE (DC) Heparin Sodium (HEPARIN SODIUM) 0 .STK-MED ONE . ROUTE (DC) Lidocaine HCl (XYLOCAINE) 0 .STK-MED ONE .ROUTE (DC) Ondansetron HCl (ZOFRAN) 0 .STK-MED ONE .ROUTE ( DC) Propofol (DIPRIVAN 200MG/20ML INJECTION) 20 ML . STK-MED ONE IV (DC) Sodium Chloride (SODIUM CHLORIDE) 20 ML ASDIR IV Dextrose/Water (DEXTROSE 10% IN WATER) [address] AT STA IV (DC) Insulin Human Regular (HUMAN INSULIN REG) 10 UNI TS STAT STA IV (DC) Dextrose/Water (DEXTROSE 10% IN WATER) [address] AT STA IV (DC) Insulin Human Regular (HUMAN INSULIN REG) 10 UNI TS STAT STA IV (DC) Sodium Polystyrene Sulfonate (KAYEXELATE) 30 GM STAT STA PO (DC) Sodium Polystyrene Sulfonate (KAYEXELATE) 15 GM ONCE ONE PO (DC) Furosemide (LASIX 40 mg/4 mL INJECTION) 40 MG ON CE ONE IV (DC) Midodrine (PROAMATINE) 5 MG 0900,1300,1700 PO (D C) Sodium Bicarbonate (SODIUM BICARBONATE) 650 MG B ID PO Ipratropium Kersey (ATROVENT) 500 MCG RTQ2H PRN PRN INH Lactulose (LACTULOSE) 20 GM DAILY PRN PRN PO Cyanocobalamin (Vitamin B-12 500 mcg tab) 500 MC G DAILY PO Ferrous Sulfate (FERROUS SULFATE) 325 MG DAILY P O Dopamine HCl/Dextrose (DOPamine 400MG/D5W 250ML) 250 ML ASDIR IV Bisacodyl (DULCOLAX) 10 MG ONCE PRN RECTAL Atorvastatin Calcium (LIPITOR) 40 MG 2100 PO Clopidogrel Bisulfate (Plavix) 75 MG DAILY PO Polyethylene Glycol (MIRALAX) 17 GM DAILY PO Miscellaneous Information (PHARMACY TO DOSE/EVAL UATE) 1 EACH ASDIR MISC (DC) Calcium Chloride (CALCIUM CHLORIDE) 1 GM ASDIR P RN IV Sodium Chloride (SODIUM CHLORIDE 0.9%) 100 ML Calcium Chloride (CALCIUM CHLORIDE) 2 GM ASDIR P RN IV Sodium Chloride (SODIUM CHLORIDE 0.9%) 100 ML Magnesium Sulfate (MAGNESIUM SULFATE 4GM/SWFI 10 0ML) 100 ML ASDIR PRN IV Magnesium Sulfate (MAGNESIUM SULFATE 2GM/SWFI 50 ML) 50 ML ASDIR PRN IV Miscellaneous (PRISMASATE BGK 4/2.5 SOLUTION) 5, 000 ML ASDIR DIALYSIS ( DC) Potassium Chloride (KCL 10MEQ/SWFI 50ML) 50 ML A SDIR PRN IV Sodium Chloride (SODIUM CHLORIDE 0.9%) 2,000 ML ASDIR PRN IV Sodium Phosphate (SODIUM PHOSPHATE) 25 MMOL ASDI R PRN IV Sodium Chloride (SODIUM CHLORIDE 0.9%) 250 ML Sodium Phosphate (SODIUM PHOSPHATE) 20 MMOL ASDI R PRN IV Sodium Chloride (SODIUM CHLORIDE 0.9%) 250 ML Sodium Phosphate (SODIUM PHOSPHATE) 15 MMOL ASDI R PRN IV Sodium Chloride (SODIUM CHLORIDE 0.9%) 250 ML Pantoprazole (PROTONIX) 40 MG DAILY@0600 PO Aspirin (ASPIRIN) 81 MG DAILY PO Vasopressin (VASOSTRICT 20 Unit/NS 100ML) 100 ML ASDIR IV (CKD) Amiodarone HCl (CORDARONE) 200 MG TID PO Docusate Sodium (COLACE) 100 MG BID PO Sennosides (Senna Lax 8.6 MG TABLET) 17.2 MG BED TIME PO Ipratropium Kersey (ATROVENT) 500 MCG RTQ4H INH Acetaminophen (TYLENOL) 650 MG Q4H PRN PRN PO Acetaminophen (TYLENOL) 650 MG Q4H PRN PRN RECTA L Calcium Chloride (CALCIUM CHLORIDE) 1 GM ASDIR P RN IV Dextrose/Water (DEXTROSE 10% IN WATER) 125 ML DIR PRN IV (CKD) Dextrose/Water (DEXTROSE 10% IN WATER) 250 ML DIR PRN IV (CKD) Epinephrine (ADRENALIN CHLORIDE) 4 MG ASDIR IV Dextrose/Water (DEXTROSE 5% WATER) 246 ML Glucagon (GLUCAGON) 1 MG ASDIR PRN IM Magnesium Sulfate (MAGNESIUM SULFATE 4GM/SWFI 10 0ML) 100 ML ASDIR PRN IV Magnesium Sulfate (MAGNESIUM SULFATE 2GM/SWFI 50 ML) 50 ML ASDIR PRN IV Magnesium Sulfate/Dextrose (MAGNESIUM SULFATE 1G M/D5W 100ML) 100 ML ASDIR PRN IV Nitroglycerin/Dextrose (NITROGLYCERIN 50,000MCG/ D5W 250ML) 250 ML ASDIR IV Norepinephrine Bitartrate (NOREPINEPHRINE 8 MG/N S 250 ML) 250 ML TITRATE IV Ondansetron HCl (ZOFRAN) 4 MG Q6H PRN PRN IV Potassium Chloride (KCL 20MEQ/SWFI 100ML) 100 ML ASDIR PRN IV Sodium Bicarbonate (SODIUM BICARBONATE) 50 MEQ A SDIR PRN IV Albumin Human (ALBUMINAR-25%) 12.5 GM ASDIR PRN IV Heparin Sodium (Porcine) (HEPARIN SODIUM) 3,000 UNIT ASDIR PRN DIALYSIS Lidocaine HCl (LIDOCAINE HCL/PF) 0.5 ML ASDIR NV N I-DERMAL (CKD) Mannitol (Mannitol 20%) 12.5 GM ASDIR PRN IV Sodium Chloride (SODIUM CHLORIDE 0.9%) 2,000 ML ASDIR PRN IV Tamsulosin HCl (Flomax 0.4 mg) 0.4 MG BEDTIME PO Results Findings/data: Laboratory Tests 07/15 Chemistry Sodium (134 - 147 mEq/L) 138 137 Potassium (3.4 - 5.0 mEq/L) 5.2 H 5.1 H Chloride (100 - 108 mEq/L) 105 104 Carbon Dioxide (21 - 33 mEq/l) 22 24 Anion Gap (0 - 20) 16 14 BUN (7 - 18 mg/dL) 61 H 69 H Creatinine (0.6 - 1.3 mg/dL) 5.6 H 5.4 H Glomerular Filtr Rate (70 - 80) 9.7 L 10.1 L Glucose (70 - 110 mg/dL) 82 124 H Calcium (8.0 - 10.5 mg/dL) 8.1 8.2 Magnesium (1.80 - 2.40 mg/dL) 2.36 Laboratory Tests 07/15 319 Hematology WBC (4.5 - 11.0 x10 3/uL) 14.4 H RBC (4.00 - 5.60 x10 6/uL) 2.85 L Hgb (12.5 - 16.9 g/dL) 8.6 L Hct (37.5 - 50.7 %) 26.7 L MCV (81.0 - 99.0 fL) 93.7 MCH (27.0 - 33.0 pg) 30.2 MCHC (33.0 - 37.0 g/dL) 32.2 L RDW (11.5 - 14.5 %) 16.2 H Plt Count (150 - 400 x10 3/uL) 250 MPV (7.0 - 9.0 fL) 10.9 H Neut % (Auto) (56.0 - 77.0 %) 75.0 Lymph % (Auto) (14.0 - 32.0 %) 5.4 L [place] % (Auto) (4.8 - 9.0 %) 10.3 H Eos % (Auto) (0.3 - 3.7 %) 6.3 H Baso % (Auto) (0.0 - 2.0 %) 0.8 Neut # (Auto) (2.0 - 7.6 x10 3/uL) 10.83 H Lymph # (Auto) (1.0 - 3.8 x10 3/uL) 0.78 L [place] # (Auto) (0.1 - 0.8 x10 3/uL) 1.48 H Eos # (Auto) (0.0 - 0.2 x10 3/uL) 0.91 H Baso # (Auto) (0.0 - 0.2 x10 3/uL) 0.11 Abs Immat Gran (auto) (0.00 - 0.03 x10 3/uL) 0. 32 H Add Manual Diff NO Immature Gran % (0.0 - 2.0 %) 2.2 H Nucleated RBC % (0 - 0 %) 0.0 Nucleated RBCs # (Man) (0.0 - 0.1 x10 3/uL) 0.0 0 Laboratory Tests 07/15/22 0320: [Embedded Image Not Available] 07/14/22 2015: [Embedded Image Not Available] Radiology data Recent Impressions: RADIOLOGY - XR CHEST 1 V 07/14 1411 Report Impression - Status: SIGNED Entered: 07/14/2022 9999 IMPRESSION: Interval placement of left chest tube near the a pex with decreased size of left pneumothorax now small. Otherwise, stable exam. Impression By: [email or web address] Yasmin Sesay M.D. CAT SCAN - CT GUID [facility] (Biopsy/Asp) 07/14 1509 Report Impression - Status: SIGNED Entered: 07/14/2022 1519 IMPRESSION: CT-guided left chest tube placement. Impression By: [email or web address] Mario Noel RADIOLOGY - XR CHEST 1 V 07/15 0655 Report Impression - Status: SIGNED Entered: 07/15/2022 0727 IMPRESSION: Left apical and basilar chest tubes. No pneumoth orax. Small bilateral pleural effusions. Bibasilar airspace opacities, mildly worsened. Impression By: [email or web address] Yogesh Sanders Free Text Obj Notes Free Text Obj Notes: General appearance: Elderly male in no acute dis tress, interactive and conversational HEENT: atraumatic, normocephalic, moist mucosal membranes Neck: full range of motion, supple/no meningismu s Cardiovascular: S1-S2 regular rate and rhythm Respiratory: symmetric expansion, no acute respi ratory distress Abdomen: soft, non-tender, no distention, no gua rding Genitourinary: waters with clear urine Extremities: pedal pulses pa lpable, moves all, no cyanosis, mild LE edema, right >left Musculoskeletal: normal inspection, no muscle sp asm 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ALTH: alert and oriented x3, CNII-XII gross ly intact, no motor deficits Skin: dry, intact and clean surgery dressing Treatment Prophylaxis Treatment Prophylaxis Drain(s)/tube(s): Drain(s)/tube(s): chest Diagnosis, Assessment Plan Problem list/A P: 1. CLAUDETTE (acute kidney injury) 2. CAD (coronary artery disease) 3. Goiter 4. BPH (benign prostatic hyperplasia) 5. Dyslipidemia 6. HTN (hypertension) Free text A P: 73-year-old male with Acute pulmonary insufficiency following thoracic surgery Status post CABG x 5 (MISTRY-LAD, SVG-Ladonna, SVG-OM1 < SVG-OM3, SVG-PDA) and ALAA Acute blood loss anemia Hypotension Ischemic cardiomyopathy, EF 30 to 34% Multivessel CAD CLAUDETTE on hemodialysis Continue mechanical ventilation, vent settings r eviewed Titrate FiO2 to keep saturation more than 90%. Spontaneous breathing trial as soon as possible Wean to extubate Follow ABGs and CXRs ABG shows metabolic acidosis. Patient re ceived 2 A of sodium bicarb and 1 g of calcium Keep off sedation Judicious pain control Milrinone drip 0.25 Epinephrine drip Norepinephrine drip Vasopressin drip Titrate drips to keep MAP more than 65 Wean milrinone off first per CV surgery Minimize fluids per CV surgery Aspirin and Plavix Atorvastatin Metoprolol Follow lactate level Monitor chest tube output Hemodialysis per nephrology Monitor urine output and kidney function Monitor and replete electrolytes Perioperative antibiotics Cardiac diet with bowel regimen once extubated BG control with insulin gtt per protocol PT/OT VTE prophylaxis. Stress ulcer prophylaxis. Discussed with CV surgery, anesthesia and ICU te am Critical care time 85 minutes 07/09 Appears neuro intact, multimodal pain control, m inimize narcotic use, no CO2 narcosis Extubated successfully, sats well on NC, wean O2 , monitor for hypercapnia, encourage I-S, obtain serial ABGs, CXR reviewed HD unstable, weaning vasopre ssors and inotrope, monitor HD parameters, low CVP, lactic acidosis with uptrending lactate, gentle volume resuscitation Oliguric CLAUDETTE, plan for CRRT per renal, h yperkalemia treated, obtain serial lab PO challenge, bowel regimen, serial abdominal ex am, monitor LFTs Leukocytosis postop, likely reactive, trend WBC, s/p antibiotic course for UTI , periop antibiotics Hgb trending down, no eviden ce of active bleed, monitor CTs output, RBC given HD instability Blood glucose control with insulin drip per prot ocol Encourage PT/OT and activity as tolerated DVT and GI prophylaxis with DAPT and PPI 2/ Appears neuro intact, multimodal pain control, m inimize narcotic use sats well on NC, wean O2, encourage I-S, ABG and CXR reviewed HD fairly stable, on minimal vasopressor support , lactic acidosis cleared s/p resuscitation Oliguric CLAUDETTE, tolerated CRRT, holding off per re nal, monitor UOP and electrolytes closely Oral diet as tolerated, bowel regimen, monitor L FTs Leukocytosis postop, trend WBC, treated for UTI preop Hgb responded to PRBC, no evidence of active ble ed, minimal CTs output Blood glucose control, transitioned insulin drip to SSI Encourage PT/OT and out of bed as tolerated DVT and GI prophylaxis with DAPT and PPI 2/3 Remains neuro intact, pain appears well controll ed Sats well on NC, wean O2, encourage I-S, ABG and CXR reviewed HD unstable, remains on minimal vasopressor supp ort, attempt to wean, start midodrine Oliguric CLAUDETTE, off CRRT per r enal, minimal UOP, started renal dose dopamine drip Tolerating oral diet, continue bowel regimen, LF Ts normalized Leukocytosis postop, continue to trend WBC, keira georgi for UTI preop Hgb stable s/p PRBC, no evidence of active bleed , monitor pCT output Blood glucose control with sliding scale insulin Encourage PT/OT and out of bed as tolerated, CM for dispo plan DVT and GI prophylaxis with DAPT and PPI 2/ Remains neuro intact, pain appears well controll ed Sats well on NC, wean O2, encourage I-S, ABG and CXR reviewed HD unstable, weaning vasopressors, increase mido drine dose, remains in SR CLAUDETTE, likely postrenal, improved UOP, HD today pe r renal, hyperkalemia treated Tolerating oral diet, has bowel movement and bow el regimen, LFTs normalized Leukocytosis, WBC trending d own, currently off antibiotics s/p treatment for UTI Hgb remains stable s/p PRBC, no evidence of acti ve bleed, minimal CT output Blood glucose control with sliding scale insulin Encourage PT/OT and out of bed as tolerated, CM for dispo plan, IPR consulted DVT and GI prophylaxis with DAPT and PPI 2 Remains neuro intact, pain appears well controll ed Sats well, wean O2, encourage I-S, ABG and CXR r eviewed, has left PTX HD stable off vasopressors, increased midodrine dose CLAUDETTE, likely postrenal, makin g urine, HD per renal, renal US with hydronephrosis Tolerating oral diet, has bowel movement and bow el regimen Leukocytosis, WBC trending down, monitor off antibiotics s/p treatment for UTI Hgb remains stable s/p PRBC, no evidence of acti ve bleed, keep CT to suction Blood glucose control with sliding scale insulin Tolerating PT/OT, CM for dispo plan, IPR on boar d DVT and GI prophylaxis with DAPT and PPI 2 Neuro Intact. Pain well controlled. Is off oxygen. On room air saturating more than 94%. Imaging chest x-ray reviewed. Still has a persistent left pneumothor ax. IR guided pigtail was placed today , CXR shows expansion of the lung Maintaining the blood pressure on midodrine 5 3 times daily. Making good urine. Monitor the potassium . As per renal we will see if he needs dialysis tomorrow then will need a tunneled cath eter. White count remained stable. No antibiotics. And bowel movement. Continue bowel regimen. Urology evaluation pending. PT OT. Pending rehab placement when medically re edith. 07/15 Neurologically intact. Pain is well controlled. He is on room air. Chest x-ray reviewed. Very small pneumothorax/. Does have bilateral pulmonary infiltrates. Continue pigtail to suction. Patient making good urine but his BUN/creatinine is still worsening. We will have tunneled dialysis catheter today. R enal following. Will discontinue Waters and monitor for trial of void if fails then will need Waters replaced back. Continue Flomax. Urology fo llowing. We will increase the midodrine to 10 3 times aleshia ly. Continue PT and PPI. SCDs for DVT prophylaxis. Disposition is SNF. Total care time 32 minutes excluding procedure Consultants: cardiology, cardiovascular surgery, nephrology Quality: Gen Med Crit Care VTE Prophylaxis VTE prophylaxis initiated: yes Electronically Signed by Jana Mittal MD on 0 07/15/22 at 1259 RPT #:[id number] END OF REPORT 2022-07-15 09:49:00-00:00 [facility] Cardiothoracic Surgery Prog REPORT#:[id number] REPORT STATUS: Signed DATE:07/15/22 TIME: 948 PATIENT: SHERRI ARCE UNIT #: [id number] ROOM/BED: [place] [address] : 42 AGE: 81 SEX: M ATTEND: Srinath Kaur MD ADM AUTHOR: Gianna Hoover * ALL edits or amendments must be made on the el [employer]/computer document * General Post-op: day 7 Status post: 07/08/22 CABG x 5 (MISTRY-LAD, SVG-Ladonna, SVG-OM1< SVG-OM3, SVG-PDA) ALEXIS TATUM (RGSV) Subjective Chief complaint: s/p CABG no complaints Review of Systems Constitutional: Denies: chills, fever, malaise. Allergy/Immun: Denies: allergic reaction. Respiratory: Denies: SOB. Cardiovascular: Denies: chest pain, palpitations. GI: Denies: abdominal pain, nausea, vomiting. : Denies: dysuria, hematuria. Heme: Denies: bleeding. Neuro: Denies: dizziness, headache, vision change. All systems rev neg: except as marked Objective General VS/I O Last Documented: Result Date Time Pulse Ox 94 07/15 0900 B/P 101/55 07/15 0900 B/P Mean 74 07/15 0900 Pulse 80 07/15 0900 Resp 28 07/15 0900 Temp 98.1 07/15 0800 O2 Delivery Room air 07/14 1942 FiO2 21 07/14 1511 O2 Flow Rate 3 07/14 1151 24 hour I O ending at 0700: 07/15 0700 07/14 1900 Intake Total 500 705 Output Total 2160 1825 Balance -1660 -1120 Intake, Oral 500 475 Intake, Oral 230 Supplement Output, Chest 60 225 Tube Drainage Output, Urine 2100 1600 PATIENT WEIGHT: Weight (lb): 200 Weight (oz): 13.46 Weight (kg): 91.100 Dietitian Nutrition assessment The data set between the solid lines has been im ported from the dietitian's assessment. BMI Calculated: 27.2 Nutrition related diagnosis: Nutrition diagnosis details: Nutrition problem: Increased nutrient needs Nutrition etiology: Chronic disease Nutrition signs and symptoms: ESTIMATED NEEDS S/ P CABG Nutrition prescription: 1. R ECOMMEND CONTIUE CARDIAC DIET, MONITOR LABS WITH PT ON DIALYSIS. 2. CONTINUE NEPRO BID. 3. DIET EDUC ATION PRIOR TO DISCHARGE. 4. MONITOR PO, WT, LABS, BM. Dietitian name: Trang Rodriguez, DIET Assessment completed: 07/10/22 Physical Exam General appearance: alert, awake, oriented Wound/incision: Location: sternal Site condition: edges approximated, incision in tact HEENT: anicteric, mucosal membranes moist Neck: supple/no meningismus Cardiovascular: normal heart sounds, regular rat e rhythm Respiratory: aerating well, symmetric expansion, no distress Abdomen: soft, non-tender, no distention Genitourinary: no waters Extremities: moves all 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ALTH: alert, oriented X 3, normal speech, n o motor deficits Psychiatry: normal affect, normal mood Current Medications Medications: Active Meds + DC'd Last 24 Hrs Amiodarone HCl (CORDARONE) 200 MG BID PO Dextrose/Water (DEXTROSE 10% IN WATER) [address] AT STA IV (DC) Insulin Human Regular (HUMAN INSULIN REG) 10 UNI TS STAT STA IV (DC) Dextrose/Water (DEXTROSE 10% IN WATER) [address] AT STA IV (DC) Insulin Human Regular (HUMAN INSULIN REG) 10 UNI TS STAT STA IV (DC) Sodium Polystyrene Sulfonate (KAYEXELATE) 30 GM STAT STA PO (DC) Sodium Polystyrene Sulfonate (KAYEXELATE) 15 GM ONCE ONE PO (DC) Furosemide (LASIX 40 mg/4 mL INJECTION) 40 MG ON CE ONE IV (DC) Fentanyl Citrate (SUBLIMAZE) 0 .STK-MED ONE IV ( DC) Midodrine (PROAMATINE) 5 MG 0900,1300,1700 PO Sodium Bicarbonate (SODIUM BICARBONATE) 650 MG B ID PO Ipratropium Kersey (ATROVENT) 500 MCG RTQ2H PRN PRN INH Lactulose (LACTULOSE) 20 GM DAILY PRN PRN PO Cyanocobalamin (Vitamin B-12 500 mcg tab) 500 MC G DAILY PO Ferrous Sulfate (FERROUS SULFATE) 325 MG DAILY P O Dopamine HCl/Dextrose (DOPamine 400MG/D5W 250ML) 250 ML ASDIR IV Bisacodyl (DULCOLAX) 10 MG ONCE PRN RECTAL Atorvastatin Calcium (LIPITOR) 40 MG 2100 PO Clopidogrel Bisulfate (Plavix) 75 MG DAILY PO Polyethylene Glycol (MIRALAX) 17 GM DAILY PO Miscellaneous Information (PHARMACY TO DOSE/EVAL UATE) 1 EACH ASDIR MISC (DC) Calcium Chloride (CALCIUM CHLORIDE) 1 GM ASDIR P RN IV Sodium Chloride (SODIUM CHLORIDE 0.9%) 100 ML Calcium Chloride (CALCIUM CHLORIDE) 2 GM ASDIR P RN IV Sodium Chloride (SODIUM CHLORIDE 0.9%) 100 ML Magnesium Sulfate (MAGNESIUM SULFATE 4GM/SWFI 10 0ML) 100 ML ASDIR PRN IV Magnesium Sulfate (MAGNESIUM SULFATE 2GM/SWFI 50 ML) 50 ML ASDIR PRN IV Miscellaneous (PRISMASATE BGK 4/2.5 SOLUTION) 5, 000 ML ASDIR DIALYSIS ( DC) Potassium Chloride (KCL 10MEQ/SWFI 50ML) 50 ML A SDIR PRN IV Sodium Chloride (SODIUM CHLORIDE 0.9%) 2,000 ML ASDIR PRN IV Sodium Phosphate (SODIUM PHOSPHATE) 25 MMOL ASDI R PRN IV Sodium Chloride (SODIUM CHLORIDE 0.9%) 250 ML Sodium Phosphate (SODIUM PHOSPHATE) 20 MMOL ASDI R PRN IV Sodium Chloride (SODIUM CHLORIDE 0.9%) 250 ML Sodium Phosphate (SODIUM PHOSPHATE) 15 MMOL ASDI R PRN IV Sodium Chloride (SODIUM CHLORIDE 0.9%) 250 ML Pantoprazole (PROTONIX) 40 MG DAILY@0600 PO Aspirin (ASPIRIN) 81 MG DAILY PO Vasopressin (VASOSTRICT 20 Unit/NS 100ML) 100 ML ASDIR IV (CKD) Amiodarone HCl (CORDARONE) 200 MG TID PO Docusate Sodium (COLACE) 100 MG BID PO Sennosides (Senna Lax 8.6 MG TABLET) 17.2 MG BED TIME PO Ipratropium Kersey (ATROVENT) 500 MCG RTQ4H INH Acetaminophen (TYLENOL) 650 MG Q4H PRN PRN PO Acetaminophen (TYLENOL) 650 MG Q4H PRN PRN RECTA L Calcium Chloride (CALCIUM CHLORIDE) 1 GM ASDIR P RN IV Dextrose/Water (DEXTROSE 10% IN WATER) 125 ML DIR PRN IV (CKD) Dextrose/Water (DEXTROSE 10% IN WATER) 250 ML DIR PRN IV (CKD) Epinephrine (ADRENALIN CHLORIDE) 4 MG ASDIR IV Dextrose/Water (DEXTROSE 5% WATER) 246 ML Glucagon (GLUCAGON) 1 MG ASDIR PRN IM Magnesium Sulfate (MAGNESIUM SULFATE 4GM/SWFI 10 0ML) 100 ML ASDIR PRN IV Magnesium Sulfate (MAGNESIUM SULFATE 2GM/SWFI 50 ML) 50 ML ASDIR PRN IV Magnesium Sulfate/Dextrose (MAGNESIUM SULFATE 1G M/D5W 100ML) 100 ML ASDIR PRN IV Nitroglycerin/Dextrose (NITROGLYCERIN 50,000MCG/ D5W 250ML) 250 ML ASDIR IV Norepinephrine Bitartrate (NOREPINEPHRINE 8 MG/N S 250 ML) 250 ML TITRATE IV Ondansetron HCl (ZOFRAN) 4 MG Q6H PRN PRN IV Potassium Chloride (KCL 20MEQ/SWFI 100ML) 100 ML ASDIR PRN IV Sodium Bicarbonate (SODIUM BICARBONATE) 50 MEQ A SDIR PRN IV Albumin Human (ALBUMINAR-25%) 12.5 GM ASDIR PRN IV Heparin Sodium (Porcine) (HEPARIN SODIUM) 3,000 UNIT ASDIR PRN DIALYSIS Lidocaine HCl (LIDOCAINE HCL/PF) 0.5 ML ASDIR NV N I-DERMAL (CKD) Mannitol (Mannitol 20%) 12.5 GM ASDIR PRN IV Sodium Chloride (SODIUM CHLORIDE 0.9%) 2,000 ML ASDIR PRN IV Tamsulosin HCl (Flomax 0.4 mg) 0.4 MG BEDTIME PO Results Findings/Data: Laboratory Tests 07/15 Chemistry Sodium (134 - 147 mEq/L) 138 137 133 L Potassium (3.4 - 5.0 mEq/L) 5.2 H 5.1 H 4.8 Chloride (100 - 108 mEq/L) 105 104 101 Carbon Dioxide (21 - 33 mEq/l) 22 24 21 Anion Gap (0 - 20) 16 14 15 BUN (7 - 18 mg/dL) 61 H 69 H 51 H Creatinine (0.6 - 1.3 mg/dL) 5.6 H 5.4 H 5.4 H Glomerular Filtr Rate (70 - 80) 9.7 L 10.1 L 1 0.1 L Glucose (70 - 110 mg/dL) 82 124 H 126 H Calcium (8.0 - 10.5 mg/dL) 8.1 8.2 8.4 Magnesium (1.80 - 2.40 mg/dL) 2.36 Laboratory Tests 07/15 319 Hematology WBC (4.5 - 11.0 x10 3/uL) 14.4 H RBC (4.00 - 5.60 x10 6/uL) 2.85 L Hgb (12.5 - 16.9 g/dL) 8.6 L Hct (37.5 - 50.7 %) 26.7 L MCV (81.0 - 99.0 fL) 93.7 MCH (27.0 - 33.0 pg) 30.2 MCHC (33.0 - 37.0 g/dL) 32.2 L RDW (11.5 - 14.5 %) 16.2 H Plt Count (150 - 400 x10 3/uL) 250 MPV (7.0 - 9.0 fL) 10.9 H Neut % (Auto) (56.0 - 77.0 %) 75.0 Lymph % (Auto) (14.0 - 32.0 %) 5.4 L [place] % (Auto) (4.8 - 9.0 %) 10.3 H Eos % (Auto) (0.3 - 3.7 %) 6.3 H Baso % (Auto) (0.0 - 2.0 %) 0.8 Neut # (Auto) (2.0 - 7.6 x10 3/uL) 10.83 H Lymph # (Auto) (1.0 - 3.8 x10 3/uL) 0.78 L [place] # (Auto) (0.1 - 0.8 x10 3/uL) 1.48 H Eos # (Auto) (0.0 - 0.2 x10 3/uL) 0.91 H Baso # (Auto) (0.0 - 0.2 x10 3/uL) 0.11 Abs Immat Gran (auto) (0.00 - 0.03 x10 3/uL) 0. 32 H Add Manual Diff NO Immature Gran % (0.0 - 2.0 %) 2.2 H Nucleated RBC % (0 - 0 %) 0.0 Nucleated RBCs # (Man) (0.0 - 0.1 x10 3/uL) 0.0 0 Radiology data: Recent Impressions: RADIOLOGY - XR CHEST 1 V 07/14 2671 Report Impression - Status: SIGNED Entered: 07/14/2022 4443 IMPRESSION: Interval placement of left chest tube near the a pex with decreased size of left pneumothorax now small. Otherwise, stable exam. Impression By: [email or web address] - Ranjan Sesay M.D. CAT SCAN - CT GUID NDL [facility] (Biopsy/Asp) 07/14 1509 Report Impression - Status: SIGNED Entered: 07/14/2022 1519 IMPRESSION: CT-guided left chest tube placement. Impression By: [email or web address] Mario Noel RADIOLOGY - XR CHEST 1 V 07/15 0655 Report Impression - Status: SIGNED Entered: 07/15/2022 07 IMPRESSION: Left apical and basilar chest tubes. No pneumoth orax. Small bilateral pleural effusions. Bibasilar airspace opacities, mildly worsened. Impression By: [email or web address] - Yogesh Prasad Results: labs reviewed, vital signs stable, ryth m personally rev'd, x-ray personally reviewed, current med profile rev'd Treatment Prophylaxis Treatment Prophylaxis Drain(s)/tube(s): Drain(s)/tube(s): chest Quality: Trauma Gen Surg Advanced Care Plan 65 or Older Discussed with: patient Discussion included: living will (none), power of employment law attorney (none), code status ( full code) VTE Prophylaxis - General VTE prophylaxis initiated: yes Diagnosis, Assessment Plan Hospital course to date: This is a 81-year-old gentleman who presented to an outside hospital with complaints of chest pains while walking at his home on Thursday. He denies any previous history of coronary artery disease or o ther NE. He was seen and evaluated at [facility]. He was found to have a urinary tract infection with urinary retention and acute kidne y. He was started on dialysis via a left femoral temporary catheter. He underw ent dialysis on Thursday, Thursday. Renal has been consulted During his work-up at outside hospital he underw ent Left heart catheterization showing sever e Left Main 70%. LAD: Proximal diffuse 80% stenosis and then diffuse 60% in the midsegment and on the distal segment, there is focal 70% stenosis. Diagonal branches w ith luminal irregularities. Left circumflex, codominant circulation with pro ximal 80%, mid 80 to 90% and then in the OM, there is proximal 60%, distal le ft circumflex has a 70% stenosis. RCA large and dominant with proximal 4 0% stenosis, mid 60% stenosis and then diffuse 50% stenosi s all the way distally and the PLV and the PDA with luminal irregularities. CV surgery consulted for evaluation for coronary bypass graft. CAROTIDS - No carotid stenosis CT chest complete IMPRESSION: Small bilateral pleural effusions with bibasila r atelectasis. Echo: 1. Left ventricle: The cavity size is at the upp er limits of normal. Wall thickness is mildly increased. Systolic fu nction is severely reduced. The estimated ejection fraction is 30- 34%. Moderate hypokinesis of the entire myocardium. Doppler p arameters are consistent with abnormal left ventricular relax ation (grade 1 diastolic dysfunction). 2. Pericardium, extracardiac: A small pericardia l effusion is identified along the left ventricular free wall, along the right ventricular free wall, and along the right atrial free wall . Assessment/Plan 1) CAD Mutlivessel Will obtain echo,carotids. 2) CLAUDETTE Started dialysis on Creatine 7.3 Renal consulted. 3) BPH- Urinary retention. Waters in place Workup for CABG underway. Will get functional assessment with PT. PFT pending Carotid dopplers- No disease Echo Pending Dialyiss per Renal. Baseline Cr unknown. 07/04 07/04 Doing well today, alert, up in the chair. Denies chest pain Echocardiogram showed LVEF 30 to 34%, mild MR, t rivial TR CT chest images reviewed Encourage I-S and mobilization Creatinine 5.5 from 7.3, good urine output. Pao l US showed bilateral severe hydronephrosis. Plan for HD today and tomorrow Will tentatively schedule patient for surgery on Thursday. Patient seen and plan reviewed with Dr Schwarz 07/05 Remains in a stable condition, denies chest pain BUN 53, creatinine 5.4. Plan for hemodia lysis today and tomorrow for clearance He is also on Lasix 20 mg IV twice daily, urine output 1.1 L overnight We will calculate risk of surgery with STS score Encourage I-S and mobilization Will tentatively schedule patient for surgery on Thursday. Pt seen and plan reviewed with Dr Schwarz 07/06 BUN 36, creatinine 4.4. Plan for hemodialysis to day Awaiting CABG tomorrow Surgery, risks involved, STS score, benefits, co mplications and alternatives were explained to the patient. He acknow ledged understanding and is willing to proceed N.p.o. after midnight Patient seen and plan reviewed with Dr. Schwarz 07/09/22 POD 1 CABG x 5 (MISTRY-LAD, SVG-Ladonna, SVG-OM1< SVG-OM3, S VG-PDA), ALAA, EVH (RGSV) Patient hemodynamically unstable, on epi at 4, a nd vaso .04, decreased uop overnight- 150cc Started patient on CRRT 2k/3.5 Wean epi as tolerated, Cardiac incex 2.8-3 labs and chest x-ray reviewed, electroly marcie stable, hgb 6.5- transfuse 2 units PRBC On 4l nasal cannula- encourage incentive spirome ter and deep breathing Keep both chest tubes and monitor outputs Glycemic control on insulin drip Cardiac diet Bowel regimen protocol Pain management SCDs for DVT and PPI for GI prophylaxis PT/OT Monitor patient closely in CVICU Plan of care discussed with Dr. Schwarz 07/10/22 POD 2 Patient alert, awake, and oriented, no distres n oted labs and CXR reviewed stable Breathing comfortably on 3l nasal cannula- wean as tolerated to melissa O2 sats > 92 % Encourage I-S use and deep breathing On CRRT- able to remove 2.9L overnight- nephrolo gy following Cardiac index 3.1- wean off epi drip Keep chest tubes for now and monitor outputs Transition to sliding scale insulin- cardiac t Try to get patient out of bed to chair today- am bulate with PT/OT SCDs for DVT prophylaxis Keep patient in CVICU for close monitoring 07/11/22 POD 3 Patient in stable condition, overnight e vents noted- decreased urine output 35 ml last night-started on dopamine gtt for renal perfusion Cardiac index 3.5- epi currently at 2- will disc ontinue today, vasopressin at 0.02, added low dose midodrine 2.5 mg TID, repea t echocardiogram. Renal Following- trial Lasix Patient has Left femoral tem p dialysis cath, Will need tunneled dialysis IJ cath placed if need dialysis. On 5l nasal cannula- wean off as tolerat ed, encourage incentive spirometer and deep breathing Keep left pleural chest tube and monitor output- > 200 cc Tolerating diet, bowel regimen protocol PT/OT- patient out of bed to chair today- encour age ambulation DVT prophylaxis with SCDs Monitor patient closely in CVICU Plan discussed with multidisciplinary team Plan discussed with Dr Schwarz/ Dr Rodríguez 07/12/22 POD 5, Patient resting comfortable. Patient with hx of urinary r etention- After standing today- voided 1.4 L. Needs Urology consult for retention K 5.4- HD in progress. Dr Plaza following. CT output 20- DC today. Pacers remain in place. Patient has Left femoral tem p dialysis cath, Re-evaluate on Thursday if ocean transportation intermediary dialysis needed. Card: Remains in sinus rhythm. Respir: on 7 L NC O2 95% Dispo: Rehab consulted Patient seen and exmained by Dr Rodríguez. Plan discussed with Team 07/13/22 POD 5 Patient with no new complaints. Recieved HD yest erday. Requiring less oxygen, now on 3l nasal cannula- continue to wean off CXR reviewed left apical pne umothorax 4cm/30%, Chest tube drained 140 overnight, placed back on suction to clear pneumo, CT drianed 200cc th is AM. on suction. Labs reviewed- stable, decreased WBC, hgb stable , CR 3.9 Eating welll, +BM UO- 550CC, BP improved on midodrine. Continue PT/OT, ambulation and incentive spirome ter use Rehab folowing Monitor in ICU today Disucssed with Dr Schwarz- Adeola C femoral line and Central line today. DC art line. Will re-eval need for dialysis cath Thursday. Cons ider tunnelled cath if need. Patient seen and examined by Dr Rodríguez. Plan discussed with Care team. 2 POD 6 Patient in stable condition, no distress noted Remains on room air, O2 sats > 92%, encourage I- S use and deep breathing CXR shows moderate left apical pneumothorax unch anged CT remained on suction, no airleak no Consult IR for pigtail chest tube placement this morning Cardiac/renal diet Labs reviewed- K 5.1- repeat labs K 4.8 Nephrology following Continue therapy with PT/OT Follow up with urology for waters catheter- Dr Hunter carrera consulted. Monitor in CVICU Plan of care discussed with Dr Schwarz and multi disciplinary team 07/15/22 POD 7 Patient alert, awake, and oriented, no distress, no complaints at this time Breathing comfortable on room air CXR shows resolved pneumothorax LP and pigtail chest tube- no air leak noted, mi nimal output from LP 40 overnight Labs reviewed, K 5.2- corrected, follow up with nephrology to discuss need for dialysis Trend labs this afternoon Bowel regimen, +gas Waters catheter discontinued per urology- voiding trial this AM Ambulation and incentive spirometer use encourag ed DVT prophylaxis with SCDs Keep in ICU DISP: SNF- Case management Discussed plan of care with multidisciplinary te am and Dr. Schwarz Consultants: cardiology, cardiovascular surgery, nephrology Electronically Signed by Gianna Hoover on 0 07/16/22 at 0757 at 1945 RPT #:[id number] END OF REPORT 2022-07-15 08:18:00-00:00 [facility] Progress Note REPORT#:[id number] REPORT STATUS: Signed DATE:07/15/22 TIME: 817 PATIENT: SHERRI ARCE UNIT #: [id number] ROOM/BED: [place] [id number] : 42 AGE: 81 SEX: M ATTEND: Sam Mcarthur MD ADM AUTHOR: Florencia Washburn NP * ALL edits or amendments must be made on the [email or web address] document * Subjective Chief complaint: Rehab follow-up OOB in chair Denies pain or sob Fatigues easily Pleasant Feels ok Denies NAIK/N/V/D/CP 14 systems reviewed and neg. except that above. Objective General VS: Vital Signs: Date Time Temp Pulse Resp B/P B/P Pulse O2 O2 F low FiO2 Mean Ox Delivery Rate 07/15 799 98.1 07/15 712 88 29 93 07/15 07 90 29 110/57 77 91 07/15 0630 86 28 92 07/15 0600 84 29 100/55 72 90 07/15 0530 84 28 92 / 0500 88 30 94/52 68 91 07/15 0430 84 27 91 07/15 0400 87 27 116/57 81 92 02/07 0330 88 21 95 02/07 0300 83 26 104/56 76 90 02/07 0230 85 26 92 02/07 0130 87 28 92 02/07 0124 87 26 110/56 78 93 02/07 0100 88 30 93 02/07 0030 90 28 92 02/07 0000 90 28 93 02/06 2330 87 28 91 02/06 2300 85 27 95 02/06 2230 83 28 93 02/06 2200 82 27 96 02/06 2130 78 25 94 02/06 2100 80 24 95 02/06 1999 98.3 02/06 1999 84 27 123/60 83 98 02/06 1942 99 Room air 02/06 1800 83 26 123/60 86 95 02/06 1700 77 27 121/58 83 95 02/06 1612 79 24 131/64 91 97 02/06 1600 98.1 02/06 1511 97 Room air 21 02/06 1505 82 28 137/65 94 97 02/06 1400 75 23 112/56 78 96 02/06 1300 81 28 121/57 82 95 02/06 1223 80 25 122/59 84 93 02/06 1202 80 15 109/60 98 Nasal cannula 02/06 1200 97.9 02/06 1159 79 19 112/58 98 Nasal cannula 02/06 1151 80 24 111/64 98 Nasal 3 cannula 02/06 1137 80 27 110/62 93 Room air 02/06 1112 83 28 108/56 77 97 02/06 1000 82 31 92/54 70 96 02/06 0900 85 29 89/52 67 89 PATIENT WEIGHT: Weight (lb): 200 Weight (oz): 13.46 Weight (kg): 91.100 Medications: Active Meds + DC'd Last 24 Hrs Amiodarone HCl (CORDARONE) 200 MG BID PO Dextrose/Water (DEXTROSE 10% IN WATER) [address] AT STA IV (DC) Insulin Human Regular (HUMAN INSULIN REG) 10 UNI TS STAT STA IV (DC) Dextrose/Water (DEXTROSE 10% IN WATER) [address] AT STA IV (DC) Insulin Human Regular (HUMAN INSULIN REG) 10 UNI TS STAT STA IV (DC) Sodium Polystyrene Sulfonate (KAYEXELATE) 30 GM STAT STA PO (DC) Sodium Polystyrene Sulfonate (KAYEXELATE) 15 GM ONCE ONE PO (DC) Furosemide (LASIX 40 mg/4 mL INJECTION) 40 MG ON CE ONE IV (DC) Fentanyl Citrate (SUBLIMAZE) 0 .STK-MED ONE IV ( DC) Midodrine (PROAMATINE) 5 MG 0900,1300,1700 PO Sodium Bicarbonate (SODIUM BICARBONATE) 650 MG B ID PO Ipratropium Kersey (ATROVENT) 500 MCG RTQ2H PRN PRN INH Lactulose (LACTULOSE) 20 GM DAILY PRN PRN PO Cyanocobalamin (Vitamin B-12 500 mcg tab) 500 MC G DAILY PO Ferrous Sulfate (FERROUS SULFATE) 325 MG DAILY P O Dopamine HCl/Dextrose (DOPamine 400MG/D5W 250ML) 250 ML ASDIR IV Bisacodyl (DULCOLAX) 10 MG ONCE PRN RECTAL Atorvastatin Calcium (LIPITOR) 40 MG 2100 PO Clopidogrel Bisulfate (Plavix) 75 MG DAILY PO Polyethylene Glycol (MIRALAX) 17 GM DAILY PO Miscellaneous Information (PHARMACY TO DOSE/EVAL UATE) 1 EACH ASDIR MISC (DC) Calcium Chloride (CALCIUM CHLORIDE) 1 GM ASDIR P RN IV Sodium Chloride (SODIUM CHLORIDE 0.9%) 100 ML Calcium Chloride (CALCIUM CHLORIDE) 2 GM ASDIR P RN IV Sodium Chloride (SODIUM CHLORIDE 0.9%) 100 ML Magnesium Sulfate (MAGNESIUM SULFATE 4GM/SWFI 10 0ML) 100 ML ASDIR PRN IV Magnesium Sulfate (MAGNESIUM SULFATE 2GM/SWFI 50 ML) 50 ML ASDIR PRN IV Miscellaneous (PRISMASATE BGK 4/2.5 SOLUTION) 5, 000 ML ASDIR DIALYSIS ( DC) Potassium Chloride (KCL 10MEQ/SWFI 50ML) 50 ML A SDIR PRN IV Sodium Chloride (SODIUM CHLORIDE 0.9%) 2,000 ML ASDIR PRN IV Sodium Phosphate (SODIUM PHOSPHATE) 25 MMOL ASDI R PRN IV Sodium Chloride (SODIUM CHLORIDE 0.9%) 250 ML Sodium Phosphate (SODIUM PHOSPHATE) 20 MMOL ASDI R PRN IV Sodium Chloride (SODIUM CHLORIDE 0.9%) 250 ML Sodium Phosphate (SODIUM PHOSPHATE) 15 MMOL ASDI R PRN IV Sodium Chloride (SODIUM CHLORIDE 0.9%) 250 ML Pantoprazole (PROTONIX) 40 MG DAILY@0600 PO Aspirin (ASPIRIN) 81 MG DAILY PO Vasopressin (VASOSTRICT 20 Unit/NS 100ML) 100 ML ASDIR IV (CKD) Amiodarone HCl (CORDARONE) 200 MG TID PO Docusate Sodium (COLACE) 100 MG BID PO Sennosides (Senna Lax 8.6 MG TABLET) 17.2 MG BED TIME PO Ipratropium Kersey (ATROVENT) 500 MCG RTQ4H INH Acetaminophen (TYLENOL) 650 MG Q4H PRN PRN PO Acetaminophen (TYLENOL) 650 MG Q4H PRN PRN RECT AL Calcium Chloride (CALCIUM CHLORIDE) 1 GM ASDIR P RN IV Dextrose/Water (DEXTROSE 10% IN WATER) 125 ML DIR PRN IV (CKD) Dextrose/Water (DEXTROSE 10% IN WATER) 250 ML DIR PRN IV (CKD) Epinephrine (ADRENALIN CHLORIDE) 4 MG ASDIR IV Dextrose/Water (DEXTROSE 5% WATER) 246 ML Glucagon (GLUCAGON) 1 MG ASDIR PRN IM Magnesium Sulfate (MAGNESIUM SULFATE 4GM/SWFI 10 0ML) 100 ML ASDIR PRN IV Magnesium Sulfate (MAGNESIUM SULFATE 2GM/SWFI 50 ML) 50 ML ASDIR PRN IV Magnesium Sulfate/Dextrose (MAGNESIUM SULFATE 1G M/D5W 100ML) 100 ML ASDIR PRN IV Nitroglycerin/Dextrose (NITROGLYCERIN 50,000MCG/ D5W 250ML) 250 ML ASDIR IV Norepinephrine Bitartrate (NOREPINEPHRINE 8 MG/N S 250 ML) 250 ML TITRATE IV Ondansetron HCl (ZOFRAN) 4 MG Q6H PRN PRN IV Potassium Chloride (KCL 20MEQ/SWFI 100ML) 100 ML ASDIR PRN IV Sodium Bicarbonate (SODIUM BICARBONATE) 50 MEQ A SDIR PRN IV Albumin Human (ALBUMINAR-25%) 12.5 GM ASDIR PRN IV Heparin Sodium (Porcine) (HEPARIN SODIUM) 3,000 UNIT ASDIR PRN DIALYSIS Lidocaine HCl (LIDOCAINE HCL/PF) 0.5 ML ASDIR NV N I-DERMAL (CKD) Mannitol (Mannitol 20%) 12.5 GM ASDIR PRN IV Sodium Chloride (SODIUM CHLORIDE 0.9%) 2,000 ML ASDIR PRN IV Tamsulosin HCl (Flomax 0.4 mg) 0.4 MG BEDTIME PO Physical Exam General appearance: alert, awake Psych: alert, oriented x 3 HEENT: anicteric, sclera clear Neck: supple, no JVD Cardiovascular: regular rate rhythm, S1/S2 Respiratory: aerating well, clear bilaterally Abdomen: bowel sounds present, non-distended, so ft Skin: intact, no rash Musculoskeletal - general: Musculoskeletal - general: joints normal, meagan l muscle mass, normal tone 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ALTH: alert, oriented X 3, CNII-XII intact Results Findings/Data: Laboratory Tests: 07/15 07/15 07/14 07/14 0320 0320 2014 1043 Chemistry Sodium (134 - 147 mEq/L) 138 137 133 L Potassium (3.4 - 5.0 mEq/L) 5.2 H 5.1 H 4.8 Chloride (100 - 108 mEq/L) 105 104 101 Carbon Dioxide (21 - 33 mEq/l) 22 24 21 Anion Gap (0 - 20) 16 14 15 BUN (7 - 18 mg/dL) 61 H 69 H 51 H Creatinine (0.6 - 1.3 mg/dL) 5.6 H 5.4 H 5.4 H Glomerular Filtr Rate (70 - 80) 9.7 L 10.1 L 10 .1 L Glucose (70 - 110 mg/dL) 82 124 H 126 H Calcium (8.0 - 10.5 mg/dL) 8.1 8.2 8.4 Magnesium (1.80 - 2.40 mg/dL) 2.36 Hematology WBC (4.5 - 11.0 x10 3/uL) 14.4 H RBC (4.00 - 5.60 x10 6/uL) 2.85 L Hgb (12.5 - 16.9 g/dL) 8.6 L Hct (37.5 - 50.7 %) 26.7 L MCV (81.0 - 99.0 fL) 93.7 MCH (27.0 - 33.0 pg) 30.2 MCHC (33.0 - 37.0 g/dL) 32.2 L RDW (11.5 - 14.5 %) 16.2 H Plt Count (150 - 400 x10 3/uL) 250 MPV (7.0 - 9.0 fL) 10.9 H Neut % (Auto) (56.0 - 77.0 %) 75.0 Lymph % (Auto) (14.0 - 32.0 %) 5.4 L [place] % (Auto) (4.8 - 9.0 %) 10.3 H Eos % (Auto) (0.3 - 3.7 %) 6.3 H Baso % (Auto) (0.0 - 2.0 %) 0.8 Neut # (Auto) (2.0 - 7.6 x10 3/uL) 10.83 H Lymph # (Auto) (1.0 - 3.8 x10 3/uL) 0.78 L [place] # (Auto) (0.1 - 0.8 x10 3/uL) 1.48 H Eos # (Auto) (0.0 - 0.2 x10 3/uL) 0.91 H Baso # (Auto) (0.0 - 0.2 x10 3/uL) 0.11 Abs Immat Gran (auto) (0.00 - 0.03 x10 3/uL) 0. 32 H Add Manual Diff NO Immature Gran % (0.0 - 2.0 %) 2.2 H Nucleated RBC % (0 - 0 %) 0.0 Nucleated RBCs # (Man) (0.0 - 0.1 x10 3/uL) 0.0 0 Diagnosis, Assessment Plan Free Text A P: Non-STEMI Multivessel CAD S/p CABG x5 Physical deconditioning Impaired mobility and gait Postoperative anemia Dyslipidemia Hypertension CLAUDETTE Acute systolic heart failure Hemodynamic issues postop Leukocytosis trending down Plan: Continue PT/OT Out of bed to chair Work on strength, bed mobility, transfers, gait Sternal precaution Increase endurance Fall precautions Monitor p.o. intake and nutrition Strict decubitus precautions Monitor anemia. 2/7 Persistent left pneumothorax. IR guided pigtail place. CXR shows expansion of the lung Urology consulted -Pt on Flomax Nephrology managing renal issues and elevated K+ - Nephrology discussed POC with CT surge ry, no emergent HD needed at this time repeat lab in a.m. if worsen, will plan for TDC. Advance therapies as tolerated Therapy update: Transfers: Mirtha Gait: 400ft Mirtha Pt lives alone and has 5 to 6 stairs to enter ho use IRF consulted. Will require insurance approval Total time was 35 minutes > 50% with patient per forming physical examination, discussing plan of care, goals, therapies, progr ess, medications, labs, IRF. All questions answered Rehab attestation: Face to face exam completed. Treatment plan disc ussed with patient. at 0813 RPT #:[id number] END OF REPORT 2022-07-15 07:30:00-00:00 [id number] [address] PATIENT NAME: SHERRI ARCE ADMIT DATE: 07/02/22 ACCOUNT NO: [id number] ROOM NO: [facility] AGE: 81 REPORT TYPE: CONSULTATION REPORT SEX: M ADMITTING PHYSICIAN:Jesus Larson MD ATTENDING PHYSICIAN:Srinath Kaur MD CONSULTATION DATE:07/15/2022 CHIEF COMPLAINT: Urinary retention, history of B PH with lower urinary tract symptoms. HISTORY OF PRESENT ILLNESS: This is a 81-year-ol d gentleman that underwent a CABG at the end of June. Postoperatively, he developed urinary retention causing hydronephrosis. He has had a Waters mark ter placed and has been on Flomax, he states at baseline. He has incontinen ce, difficulty starting poor stream, incomplete emptying. This has been going on for many years. PAST MEDICAL HISTORY: BPH, NE, kidney injury, hy perlipidemia, and coronary artery disease. PAST SURGICAL HISTORY: CABG. Denies any prostate surgery. FAMILY HISTORY: Noncontributory. 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 HOME MEDICATIONS: Reviewed, can be found in the MAR. He has been started on Flomax here. REVIEW OF SYSTEMS: A 14-poin t review of systems obtained is negative other than the HPI. PHYSICAL EXAMINATION: VITAL SIGNS: Temperature 98.3, pulse 88, respira tory rate 29, and blood pressure 110/57. GENERAL: Alert. No acute distress, nontoxic. HEENT: Normocephalic, atraumatic. Extraocular mu scles intact. NECK: Supple. HEART: Regular rate and rhythm. LUNGS: Respirations unlabored. Normal chest excu rsion. ABDOMEN: Soft, nontender, nondistended. Waters ca theter in place with clear urine. EXTREMITIES: Moving all extremities well. Creati nine 5.6. LABORATORY DATA: White blood cell count 14, hemo globin 8.6. ASSESSMENT AND PLAN: This is a 81-year-old gentl eman with a history of benign prostatic hyperplasia, lower urinary tract sympt oms, worsening lower urinary tract symptoms over the year s that after coronary artery bypass graft, was found PATIENT NAME: SHERRI ARCE to have acute kidney injury, bladder-outlet obst ruction and severe hydronephrosis. He has since been started on Trip max and he is now up and ambulating. We discussed options. He would like to do a trial of voiding. Dictated By: Jonathan Harris MD Date Dictated: 07/15/2022 07:30:43 Date Transcribed: 07/15/2022 07:42:36 /[place] Receipt ID: [id number] Authenticated and Edited by Jonathan Harris MD O n 07/29/22 4:34:23 PM at 0435 PATIENT NAME: SHERRI ARCE 2022-07-14 17:26:00-00:00 [facility] REPORT#:[id number] REPORT STATUS: Signed DATE:07/14/22 TIME: 172 PATIENT: SHERRI ARCE UNIT #: [id number] ROOM/BED: [place] [address] : 42 AGE: 81 SEX: M ATTEND: Sam Mcarthur MD ADM AUTHOR: Evelina Plaza MD * ALL edits or amendments must be made on the [email or web address] document * Subjective Chief complaint: has no complaints. Objective General VS/I O: Vital Signs: Date Time Temp Pulse Resp B/P B/P Pulse O2 O2 F low FiO2 Mean Ox Delivery Rate 07/14 1612 79 24 131/64 91 97 07/14 1600 98.1 07/14 1511 97 Room air 21 07/14 1505 82 28 137/65 94 97 07/14 1400 75 23 112/56 78 96 07/14 1300 81 28 121/57 82 95 07/14 1223 80 25 122/59 84 93 07/14 1202 80 15 109/60 98 Nasal cannula 07/14 1200 97.9 07/14 1159 79 19 112/58 98 Nasal cannula 02/06 1151 80 24 111/64 98 Nasal 3 cannula 02/06 1137 80 27 110/62 93 Room air 02/06 1112 83 28 108/56 77 97 02/06 1000 82 31 92/54 70 96 02/06 0900 85 29 89/52 67 89 02/06 0807 81 24 96 02/06 0800 98.2 02/06 0800 80 27 101/53 72 99 02/06 0754 95 Room air 21 02/06 0700 81 28 102/53 74 94 02/06 0600 80 29 100/54 71 96 02/06 0500 80 27 107/58 77 95 02/06 0400 83 37 107/55 74 95 02/06 0324 95 Nasal 2 cannula 02/06 0300 81 24 109/55 76 95 02/06 0200 81 34 115/55 76 97 02/06 0130 81 24 95 02/06 0100 81 24 121/58 83 88 02/06 0030 82 27 93 02/06 0000 82 26 112/60 79 93 02/05 2330 83 23 93 02/05 2300 83 21 116/55 79 94 02/05 2230 79 25 92 02/05 2200 76 25 117/58 81 93 02/05 2130 77 24 94 02/05 2100 78 26 118/57 81 94 02/05 2007 95 Room air 07/13 1999 98.6 02/1999 78 27 117/56 80 95 24 hour I O ending at 0700: 02/06 0700 02/05 1900 Intake Total 500 1200 Output Total 1515 1135 Balance -1015 65 Intake, Oral 500 960 Intake, Oral 240 Supplement Output, Chest 265 260 Tube Drainage Output, Urine 1250 875 PATIENT WEIGHT: Weight (lb): 200 Weight (oz): 13.46 Weight (kg): 91.100 Medications Active Meds + DC'd Last 24 Hrs Furosemide (LASIX 40 mg/4 mL INJECTION) 40 MG ON CE ONE IV (UNV) Fentanyl Citrate (SUBLIMAZE) 0 .STK-MED ONE IV ( DC) Dextrose/Water (DEXTROSE 10% IN WATER) [address] AT STA IV (DC) Insulin Human Regular (HUMAN INSULIN REG) 10 UNI TS STAT STA IV (DC) Midodrine (PROAMATINE) 5 MG 0900,1300,1700 PO Sodium Bicarbonate (SODIUM BICARBONATE) 650 MG B ID PO Ipratropium Kersey (ATROVENT) 500 MCG RTQ2H PRN PRN INH Lactulose (LACTULOSE) 20 GM DAILY PRN PRN PO Cyanocobalamin (Vitamin B-12 500 mcg tab) 500 MC G DAILY PO Ferrous Sulfate (FERROUS SULFATE) 325 MG DAILY PO Dopamine HCl/Dextrose (DOPamine 400MG/D5W 250ML) 250 ML ASDIR IV Bisacodyl (DULCOLAX) 10 MG ONCE PRN RECTAL Atorvastatin Calcium (LIPITOR) 40 MG 2100 PO Clopidogrel Bisulfate (Plavix) 75 MG DAILY PO Polyethylene Glycol (MIRALAX) 17 GM DAILY PO Miscellaneous Information (PHARMACY TO DOSE/EVAL UATE) 1 EACH ASDIR MISC Calcium Chloride (CALCIUM CHLORIDE) 1 GM ASDIR P RN IV Sodium Chloride (SODIUM CHLORIDE 0.9%) 100 ML Calcium Chloride (CALCIUM CHLORIDE) 2 GM ASDIR P RN IV Sodium Chloride (SODIUM CHLORIDE 0.9%) 100 ML Magnesium Sulfate (MAGNESIUM SULFATE 4GM/SWFI 10 0ML) 100 ML ASDIR PRN IV Magnesium Sulfate (MAGNESIUM SULFATE 2GM/SWFI 50 ML) 50 ML ASDIR PRN IV Miscellaneous (PRISMASATE BGK 4/2.5 SOLUTION) 5, 000 ML ASDIR DIALYSIS Potassium Chloride (KCL 10MEQ/SWFI 50ML) 50 ML A SDIR PRN IV Sodium Chloride (SODIUM CHLORIDE 0.9%) 2,000 ML ASDIR PRN IV Sodium Phosphate (SODIUM PHOSPHATE) 25 MMOL ASDI R PRN IV Sodium Chloride (SODIUM CHLORIDE 0.9%) 250 ML Sodium Phosphate (SODIUM PHOSPHATE) 20 MMOL ASDI R PRN IV Sodium Chloride (SODIUM CHLORIDE 0.9%) 250 ML Sodium Phosphate (SODIUM PHOSPHATE) 15 MMOL ASDI R PRN IV Sodium Chloride (SODIUM CHLORIDE 0.9%) 250 ML Pantoprazole (PROTONIX) 40 MG DAILY@0600 PO Aspirin (ASPIRIN) 81 MG DAILY PO Vasopressin (VASOSTRICT 20 Unit/NS 100ML) 100 ML ASDIR IV (CKD) Amiodarone HCl (CORDARONE) 200 MG TID PO Docusate Sodium (COLACE) 100 MG BID PO Sennosides (Senna Lax 8.6 MG TABLET) 17.2 MG BED TIME PO Ipratropium Kersey (ATROVENT) 500 MCG RTQ4H INH Acetaminophen (TYLENOL) 650 MG Q4H PRN PRN PO Acetaminophen (TYLENOL) 650 MG Q4H PRN PRN RECTA L Calcium Chloride (CALCIUM CHLORIDE) 1 GM ASDIR P RN IV Dextrose/Water (DEXTROSE 10% IN WATER) 125 ML DIR PRN IV (CKD) Dextrose/Water (DEXTROSE 10% IN WATER) 250 ML DIR PRN IV (CKD) Epinephrine (ADRENALIN CHLORIDE) 4 MG ASDIR IV Dextrose/Water (DEXTROSE 5% WATER) 246 ML Glucagon (GLUCAGON) 1 MG ASDIR PRN IM Magnesium Sulfate (MAGNESIUM SULFATE 4GM/SWFI 10 0ML) 100 ML ASDIR PRN IV Magnesium Sulfate (MAGNESIUM SULFATE 2GM/SWFI 50 ML) 50 ML ASDIR PRN IV Magnesium Sulfate/Dextrose (MAGNESIUM SULFATE 1G M/D5W 100ML) 100 ML ASDIR PRN IV Nitroglycerin/Dextrose (NITROGLYCERIN 50,000MCG/ D5W 250ML) 250 ML ASDIR IV Norepinephrine Bitartrate (NOREPINEPHRINE 8 MG/N S 250 ML) 250 ML TITRATE IV Ondansetron HCl (ZOFRAN) 4 MG Q6H PRN PRN IV Oxycodone HCl (ROXICODONE) 5 MG Q4H PRN PRN PO ( DC) Oxycodone HCl (ROXICODONE) 10 MG Q4H PRN PRN PO (DC) Potassium Chloride (KCL 20MEQ/SWFI 100ML) 100 ML ASDIR PRN IV Sodium Bicarbonate (SODIUM BICARBONATE) 50 MEQ A SDIR PRN IV Sodium Chloride (SODIUM CHLORIDE 0.9%) 250 ML Q2 4H IV (DC) Albumin Human (ALBUMINAR-25%) 12.5 GM ASDIR PRN IV Heparin Sodium (Porcine) (HEPARIN SODIUM) 3,000 UNIT ASDIR PRN DIALYSIS Lidocaine HCl (LIDOCAINE HCL/PF) 0.5 ML ASDIR NV N I-DERMAL (CKD) Mannitol (Mannitol 20%) 12.5 GM ASDIR PRN IV Sodium Chloride (SODIUM CHLORIDE 0.9%) 2,000 ML ASDIR PRN IV Tamsulosin HCl (Flomax 0.4 mg) 0.4 MG BEDTIME P O Physical Exam General appearance: alert, awake Head/eyes: atraumatic, normocephalic ENT: moist mucous membranes, normal nose Neck: non-tender, no JVD Extremities: no edema, no swelling 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ALTH: alert, oriented X 3, normal speech Skin: dry, intact Results Findings/Data: Laboratory Tests 07/14 07/14 1043 0337 Chemistry Sodium (134 - 147 mEq/L) 133 L 137 Potassium (3.4 - 5.0 mEq/L) 4.8 5.1 H Chloride (100 - 108 mEq/L) 101 104 Carbon Dioxide (21 - 33 mEq/l) 21 22 Anion Gap (0 - 20) 15 16 BUN (7 - 18 mg/dL) 51 H 48 H Creatinine (0.6 - 1.3 mg/dL) 5.4 H 4.8 H Glomerular Filtr Rate (70 - 80) 10.1 L 11.7 L Glucose (70 - 110 mg/dL) 126 H 92 Calcium (8.0 - 10.5 mg/dL) 8.4 8.5 Magnesium (1.80 - 2.40 mg/dL) 2.40 Laboratory Tests 07/14 0337 Hematology WBC (4.5 - 11.0 x10 3/uL) 13.0 H RBC (4.00 - 5.60 x10 6/uL) 2.82 L Hgb (12.5 - 16.9 g/dL) 8.3 L Hct (37.5 - 50.7 %) 26.2 L MCV (81.0 - 99.0 fL) 92.9 MCH (27.0 - 33.0 pg) 29.4 MCHC (33.0 - 37.0 g/dL) 31.7 L RDW (11.5 - 14.5 %) 16.4 H Plt Count (150 - 400 x10 3/uL) 204 MPV (7.0 - 9.0 fL) 10.8 H Neut % (Auto) (56.0 - 77.0 %) 75.4 Lymph % (Auto) (14.0 - 32.0 %) 5.1 L [place] % (Auto) (4.8 - 9.0 %) 10.1 H Eos % (Auto) (0.3 - 3.7 %) 7.1 H Baso % (Auto) (0.0 - 2.0 %) 0.5 Neut # (Auto) (2.0 - 7.6 x10 3/uL) 9.80 H Lymph # (Auto) (1.0 - 3.8 x10 3/uL) 0.67 L [place] # (Auto) (0.1 - 0.8 x10 3/uL) 1.32 H Eos # (Auto) (0.0 - 0.2 x10 3/uL) 0.92 H Baso # (Auto) (0.0 - 0.2 x10 3/uL) 0.07 Abs Immat Gran (auto) (0.00 - 0.03 x10 3/uL) 0. 24 H Add Manual Diff NO Immature Gran % (0.0 - 2.0 %) 1.8 Nucleated RBC % (0 - 0 %) 0.0 Nucleated RBCs # (Man) (0.0 - 0.1 x10 3/uL) 0.0 0 Radiology data: Recent Impressions: RADIOLOGY - XR CHEST 1 V 07/14 0627 Report Impression - Status: SIGNED Entered: 07/14/2022 0915 IMPRESSION: 1. Moderate left apical pneumothorax, similar to prior radiograph. Left chest tube in place. 2. Unchanged small bilateral pleural effusions w ith bibasilar airspace disease. Impression By: [email or web address] - Sheldon Kenney M.D. RADIOLOGY - XR CHEST 1 V 07/14 1411 Report Impression - Status: SIGNED Entered: 07/14/2022 1509 IMPRESSION: Interval placement of left chest tube near the a pex with decreased size of left pneumothorax now small. Otherwise, stable exam. Impression By: [email or web address] - Ranjan Sesay M.D. CAT SCAN - CT GUID [facility] (Biopsy/Asp) 07/14 1509 Report Impression - Status: SIGNED Entered: 07/14/2022 1519 IMPRESSION: CT-guided left chest tube placement. Impression By: [email or web address] - Mario Maldonado Treatment Prophylaxis Treatment Prophylaxis Drain(s)/tube(s): Drain(s)/tube(s): chest Diagnosis, Assessment Plan Free Text A P: Assessment: 1-CLAUDETTE likely from urinary retention. oliguric AK I now post op, from shock! 2- non-STEMI: multivessel disease w main left. 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 Waters catheter is in place. 4-severe bilateral hydronephrosis 5- shock : Cardiogenic 6-hyperlipidemia Plan: - unknown Scr baseline but ultrasound showed MRD . - Ultrasound showed severe bilateral hydronephro sis. Continue Waters catheter. Urology consulted. - He underwent LHC on 07/03. Started on HD withou t UF on 07/04. - s/p CABG X5 on 07/08 - on dopamine. -Excellent urine output - s/p HD 07/12. -Lasix 40 mg IV x1 - discussed with CT surgery, no emergent HD need today, repeat lab in a.m. if worsen, will plan for TDC. Consultants: cardiology, cardiovascular surgery, nephrology Electronically Signed by Evelina Plaza MD on 11/28 at 1730 RPT #:[id number] END OF REPORT 2022-07-14 16:24:00-00:00 [facility] Hospitalist Progress Note REPORT#:[id number] REPORT STATUS: Signed DATE:07/14/22 TIME: 1624 PATIENT: SHERRI ARCE UNIT #: [id number] ROOM/BED: [place] [address] : 42 AGE: 81 SEX: M ATTEND: Sam Mcarthur MD ADM AUTHOR: Sarbjit Mcarthur MD * ALL edits or amendments must be made on the [email or web address] document * Subjective Chief complaint: Status post CABG x5 on 07/09, Doing well today. Am bulated around the unit. HPI: 81 y/o man with PMHx of HTN, Dyslipidemia [facility] with chest pain and found to have a NSTEMI and also acute renal failure. Underwent cardiac c ath yesterday and found to have severe CAD including left main disease. Transfer here f or CABG evaluation. He also underwent HD Thursday and Thursday of this week. HD catheter was place at [facility]. Currently not having any chest pain. Had chest pain with SOB when he presentted to the previous hospital. Objective General VS/I O: Vital Signs: Date Time Temp Pulse Resp B/P B/P Pulse O2 O2 F low FiO2 Mean Ox Delivery Rate 07/14 1612 79 24 131/64 91 97 02/06 1511 97 Room air 21 02/06 1505 82 28 137/65 94 97 02/06 1400 75 23 112/56 78 96 02/06 1300 81 28 121/57 82 95 02/06 1223 80 25 122/59 84 93 02/06 1202 80 15 109/60 98 Nasal cannula 02/06 1200 97.9 02/06 1159 79 19 112/58 98 Nasal cannula 02/06 1151 80 24 111/64 98 Nasal 3 cannula 02/06 1137 80 27 110/62 93 Room air 02/06 1112 83 28 108/56 77 97 02/06 1000 82 31 92/54 70 96 02/06 0900 85 29 89/52 67 89 02/06 0807 81 24 96 02/06 0800 98.2 02/06 0800 80 27 101/53 72 99 02/06 0754 95 Room air 21 02/06 0700 81 28 102/53 74 94 02/06 0600 80 29 100/54 71 96 02/06 0500 80 27 107/58 77 95 02/06 0400 83 37 107/55 74 95 02/06 0324 95 Nasal 2 cannula 02/06 0300 81 24 109/55 76 95 02/06 0200 81 34 115/55 76 97 02/06 0130 81 24 95 02/06 0100 81 24 121/58 83 88 02/06 0030 82 27 93 02/06 0000 82 26 112/60 79 93 02/05 2330 83 23 93 02/05 2300 83 21 116/55 79 94 02/05 2230 79 25 92 02/05 2200 76 25 117/58 81 93 02/05 2130 77 24 94 02/05 2100 78 26 118/57 81 94 02/05 2007 95 Room air 02/05 1999 98.6 02/05 1999 78 27 117/56 80 95 24 hour I O ending at 0700: 02/06 0700 02/05 1900 Intake Total 500 1200 Output Total 1515 1135 Balance -1015 65 Intake, Oral 500 960 Intake, Oral 240 Supplement Output, Chest 265 260 Tube Drainage Output, Urine 1250 875 PATIENT WEIGHT: Weight (lb): 200 Weight (oz): 13.46 Weight (kg): 91.100 Physical Exam General appearance: alert, awake, oriented Head/Eyes: atraumatic, EOMI, normal conjunctiva/ sclera, normocephalic, PERRLA ENT: moist mucosal membranes Neck: full range of motion, no bruit/NL carotids , no JVD Cardiovascular: normal heart sounds, regular rat e rhythm Respiratory: aerating well, clear to auscultatio n, symmetric expansion, no distress Abdomen: non-tender, normal bowel sounds , soft, no distention, no guarding, no rebound Extremities: moves all, no cyanosis, no edema Musculoskeletal: normal inspection 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ALTH: alert, oriented X 3, normal speech, n o motor deficits, no sensory deficits Skin: intact, normal color, no rash Psychiatry: normal affect Results Findings/Data: Laboratory Tests 07/14 07/14 1043 0337 Chemistry Sodium (134 - 147 mEq/L) 133 L 137 Potassium (3.4 - 5.0 mEq/L) 4.8 5.1 H Chloride (100 - 108 mEq/L) 101 104 Carbon Dioxide (21 - 33 mEq/l) 21 22 Anion Gap (0 - 20) 15 16 BUN (7 - 18 mg/dL) 51 H 48 H Creatinine (0.6 - 1.3 mg/dL) 5.4 H 4.8 H Glomerular Filtr Rate (70 - 80) 10.1 L 11.7 L Glucose (70 - 110 mg/dL) 126 H 92 Calcium (8.0 - 10.5 mg/dL) 8.4 8.5 Magnesium (1.80 - 2.40 mg/dL) 2.40 Laboratory Tests 07/14 0337 Hematology WBC (4.5 - 11.0 x10 3/uL) 13.0 H RBC (4.00 - 5.60 x10 6/uL) 2.82 L Hgb (12.5 - 16.9 g/dL) 8.3 L Hct (37.5 - 50.7 %) 26.2 L MCV (81.0 - 99.0 fL) 92.9 MCH (27.0 - 33.0 pg) 29.4 MCHC (33.0 - 37.0 g/dL) 31.7 L RDW (11.5 - 14.5 %) 16.4 H Plt Count (150 - 400 x10 3/uL) 204 MPV (7.0 - 9.0 fL) 10.8 H Neut % (Auto) (56.0 - 77.0 %) 75.4 Lymph % (Auto) (14.0 - 32.0 %) 5.1 L [place] % (Auto) (4.8 - 9.0 %) 10.1 H Eos % (Auto) (0.3 - 3.7 %) 7.1 H Baso % (Auto) (0.0 - 2.0 %) 0.5 Neut # (Auto) (2.0 - 7.6 x10 3/uL) 9.80 H Lymph # (Auto) (1.0 - 3.8 x10 3/uL) 0.67 L [place] # (Auto) (0.1 - 0.8 x10 3/uL) 1.32 H Eos # (Auto) (0.0 - 0.2 x10 3/uL) 0.92 H Baso # (Auto) (0.0 - 0.2 x10 3/uL) 0.07 Abs Immat Gran (auto) (0.00 - 0.03 x10 3/uL) 0. 24 H Add Manual Diff NO Immature Gran % (0.0 - 2.0 %) 1.8 Nucleated RBC % (0 - 0 %) 0.0 Nucleated RBCs # (Man) (0.0 - 0.1 x10 3/uL) 0.0 0 Radiology data: Recent Impressions: RADIOLOGY - XR CHEST 1 V 07/14 06 Report Impression - Status: SIGNED Entered: 07/14/2022 0915 IMPRESSION: 1. Moderate left apical pneumothorax, similar to prior radiograph. Left chest tube in place. 2. Unchanged small bilateral pleural effusions w ith bibasilar airspace disease. Impression By: [email or web address] - Sheldon Kenney M.D. RADIOLOGY - XR CHEST 1 V 07/14 1411 Report Impression - Status: SIGNED Entered: 07/14/2022 1509 IMPRESSION: Interval placement of left chest tube near the a pex with decreased size of left pneumothorax now small. Otherwise, stable exam. Impression By: [email or web address] - Ranjan Sesay M.D. CAT SCAN - CT GUID [facility] (Biopsy/Asp) 07/14 1509 Report Impression - Status: SIGNED Entered: 07/14/2022 1519 IMPRESSION: CT-guided left chest tube placement. Impression By: [email or web address] - Mario Maldonado Treatment Prophylaxis Treatment Prophylaxis Drain(s)/tube(s): Drain(s)/tube(s): chest Diagnosis, Assessment Plan Consultants: cardiology, cardiovascular surgery, nephrology Free Text DxA P Notes Free text DxA P notes: Assessment and plans: CAD (coronary artery disease) patient presented with NSTEMI and found to hve severe CAD. Cardiac cath shows: Left Main - Distal 70% LAD - Proximal 80% with another 60% and 70% les sions Cir - Proximal 80%,mid 80-90%, Distal 70% and O M 60% RCA - large dominant with proximal 40%, Mid 60% . Cardiology and CV surgeon consulted echo: ef 30-34%, mod hypokinesis of entire myoc ardium, grade 1 diastolic dysfunction Carotid Dopplers negative PFTs PT/OT s/p CABG X5 on 07/08 Patient on ASA, plavix, BB and Statin on amiodarone Beta-tomas as tolerated for low BP, Acute systolic heart failure Echocardiac with estimated LVEF of 30 to 34% wi grade 1 diastolic dysfunction -s/p Lasix 20 mg twice daily 07/05 -on metoprolol 12.5 mg bid on hold now, BP low -no ACEI/ spironolactione for CLAUDETTE -Strict I's and O's, daily weights -Start GDMT prior to discharge CLAUDETTE (acute kidney injury) No prior Hx of renal disease. hx of BPH and casimiro ated with Fosamax w/o improvement nd continue to h ave difficulty urinating. On admission was found to be on acute renal filaure and had received HD tw prior to arrival here ( thursday and thursday). Creatinine this am was 7.4, BUN 68 * Probably due to obstructive uropathy * waters already in place * Nephrology consuled for HD On daily hemodialysis as per nephrology Anemia: -Hemoglobin dropped to 6.5 s/p CABG 2 PRBC BT ordered 07/09 Monitor H H Leukocytosis: -Afebrile Monitor WBC count HTN (hypertension) patient on metoprolol 12.5 mg BID, will adjust as needed On labetalol/hydralazine as needed Dyslipidemia on Lipitor 40mg po daliy. BPH (benign prostatic hyperplasia) Started on Flomax at the previous hospital, thais l continue with it. Waters catheter in place, continue Waters cathete r as per nephrology 07/05 Goiter Hx of Goiter and surgical resection. TSH 3.33, within normal limits. Patient is not on Thyroid medication. anemia of chronic kidney disease Hemoglobin 8.3, monitor Hypokalemia resolved UTI continue Rocephin for empiric treatment pend ing results of urine culture No growth for 48 hours DVT prophylaxis: Heparin 5000 units every 8 hour s Diet: Cardiac diet CODE STATUS: Full code Disposition: Status post CABG x5 on 07/09, hemodia lysis as per nephrology. Worked with PT in his room, on 2 L oxygen via na cj cannula. PT/OT on board. Rehab consulted. Continue CVICU care. Quality: Gen Med Crit Care VTE Prophylaxis VTE prophylaxis initiated: yes Current Medications Current medication review: I attest that the foregoing medication list in [facility] medical record is true, accurate, and complete to the best of my knowled ge. 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 Objective General VS/I O: 24 hour I O ending at 0700: 06 0700 02/05 1900 Intake Total 500 1200 Output Total 1515 1135 Balance -1015 65 Intake, Oral 500 960 Intake, Oral 240 Supplement Output, Chest 265 260 Tube Drainage Output, Urine 1250 875 Vital Signs: Date Time Temp Pulse Resp B/P B/P Pulse O2 O2 F low FiO2 Mean Ox Delivery Rate 07/14 1511 97 Room air 21 02/ 1202 80 15 109/60 98 Nasal cannula 02/06 1200 36.6 02/06 1159 79 19 112/58 98 Nasal cannula 02/ 1151 80 24 111/64 98 Nasal 3 cannula 02/ 1137 80 27 110/62 93 Room air 02/06 0807 81 24 96 02/06 0800 36.8 02/06 0800 80 27 101/53 72 99 02/06 0754 95 Room air 21 02/06 0700 81 28 102/53 74 94 02/06 0600 80 29 100/54 71 96 02/06 0500 80 27 107/58 77 95 02/06 0400 83 37 107/55 74 95 02/06 0324 95 Nasal 2 cannula 02/06 0300 81 24 109/55 76 95 02/06 0200 81 34 115/55 76 97 02/06 0130 81 24 95 02/06 0100 81 24 121/58 83 88 02/06 0030 82 27 93 02/06 0000 82 26 112/60 79 93 02/05 2330 83 23 93 02/05 2300 83 21 116/55 79 94 02/05 2230 79 25 92 02/05 2200 76 25 117/58 81 93 02/05 2130 77 24 94 02/05 2100 78 26 118/57 81 94 02/05 2008 95 Room air 02/1999 37.0 02/05 1999 78 27 117/56 80 95 02/05 1600 76 37 122/65 89 94 PATIENT WEIGHT: Weight (lb): 200 Weight (oz): 13.46 Weight (kg): 91.100 Medications: Active Meds + DC'd Last 24 Hrs Fentanyl Citrate (SUBLIMAZE) 0 .STK-MED ONE IV ( DC) Dextrose/Water (DEXTROSE 10% IN WATER) [address] AT STA IV (DC) Insulin Human Regular (HUMAN INSULIN REG) 10 UNI TS STAT STA IV (DC) Midodrine (PROAMATINE) 5 MG 0900,1300,1700 PO Sodium Bicarbonate (SODIUM BICARBONATE) 650 MG B ID PO Ipratropium Kersey (ATROVENT) 500 MCG RTQ2H PRN PRN INH Lactulose (LACTULOSE) 20 GM DAILY PRN PRN PO Cyanocobalamin (Vitamin B-12 500 mcg tab) 500 MC G DAILY PO Ferrous Sulfate (FERROUS SULFATE) 325 MG DAILY P O Dopamine HCl/Dextrose (DOPamine 400MG/D5W 250ML) 250 ML ASDIR IV Bisacodyl (DULCOLAX) 10 MG ONCE PRN RECTAL Atorvastatin Calcium (LIPITOR) 40 MG 2100 PO Clopidogrel Bisulfate (Plavix) 75 MG DAILY PO Polyethylene Glycol (MIRALAX) 17 GM DAILY PO Miscellaneous Information (PHARMACY TO DOSE/EVAL UATE) 1 EACH ASDIR MISC Calcium Chloride (CALCIUM CHLORIDE) 1 GM ASDIR P RN IV Sodium Chloride (SODIUM CHLORIDE 0.9%) 100 ML Calcium Chloride (CALCIUM CHLORIDE) 2 GM ASDIR P RN IV Sodium Chloride (SODIUM CHLORIDE 0.9%) 100 ML Magnesium Sulfate (MAGNESIUM SULFATE 4GM/SWFI 10 0ML) 100 ML ASDIR PRN IV Magnesium Sulfate (MAGNESIUM SULFATE 2GM/SWFI 50 ML) 50 ML ASDIR PRN IV Miscellaneous (PRISMASATE BGK 4/2.5 SOLUTION) 5, 000 ML ASDIR DIALYSIS Potassium Chloride (KCL 10MEQ/SWFI 50ML) 50 ML A SDIR PRN IV Sodium Chloride (SODIUM CHLORIDE 0.9%) 2,000 ML ASDIR PRN IV Sodium Phosphate (SODIUM PHOSPHATE) 25 MMOL ASD IR PRN IV Sodium Chloride (SODIUM CHLORIDE 0.9%) 250 ML Sodium Phosphate (SODIUM PHOSPHATE) 20 MMOL ASDI R PRN IV Sodium Chloride (SODIUM CHLORIDE 0.9%) 250 ML Sodium Phosphate (SODIUM PHOSPHATE) 15 MMOL ASDI R PRN IV Sodium Chloride (SODIUM CHLORIDE 0.9%) 250 ML Pantoprazole (PROTONIX) 40 MG DAILY@0600 PO Aspirin (ASPIRIN) 81 MG DAILY PO Vasopressin (VASOSTRICT 20 Unit/NS 100ML) 100 ML ASDIR IV (CKD) Amiodarone HCl (CORDARONE) 200 MG TID PO Docusate Sodium (COLACE) 100 MG BID PO Sennosides (Senna Lax 8.6 MG TABLET) 17.2 MG BED TIME PO Ipratropium Kersey (ATROVENT) 500 MCG RTQ4H INH Acetaminophen (TYLENOL) 650 MG Q4H PRN PRN PO Acetaminophen (TYLENOL) 650 MG Q4H PRN PRN RECTA L Calcium Chloride (CALCIUM CHLORIDE) 1 GM ASDIR P RN IV Dextrose/Water (DEXTROSE 10% IN WATER) 125 ML DIR PRN IV (CKD) Dextrose/Water (DEXTROSE 10% IN WATER) 250 ML DIR PRN IV (CKD) Epinephrine (ADRENALIN CHLORIDE) 4 MG ASDIR IV Dextrose/Water (DEXTROSE 5% WATER) 246 ML Glucagon (GLUCAGON) 1 MG ASDIR PRN IM Magnesium Sulfate (MAGNESIUM SULFATE 4GM/SWFI 10 0ML) 100 ML ASDIR PRN IV Magnesium Sulfate (MAGNESIUM SULFATE 2GM/SWFI 50 ML) 50 ML ASDIR PRN IV Magnesium Sulfate/Dextrose (MAGNESIUM SULFATE 1G M/D5W 100ML) 100 ML ASDIR PRN IV Nitroglycerin/Dextrose (NITROGLYCERIN 50,000MCG/ D5W 250ML) 250 ML ASDIR IV Norepinephrine Bitartrate (NOREPINEPHRINE 8 MG/N S 250 ML) 250 ML TITRATE IV Ondansetron HCl (ZOFRAN) 4 MG Q6H PRN PRN IV Oxycodone HCl (ROXICODONE) 5 MG Q4H PRN PRN PO ( DC) Oxycodone HCl (ROXICODONE) 10 MG Q4H PRN PRN PO (DC) Potassium Chloride (KCL 20MEQ/SWFI 100ML) 100 ML ASDIR PRN IV Sodium Bicarbonate (SODIUM BICARBONATE) 50 MEQ A SDIR PRN IV Sodium Chloride (SODIUM CHLORIDE 0.9%) 250 ML Q2 4H IV (DC) Albumin Human (ALBUMINAR-25%) 12.5 GM ASDIR PRN IV Heparin Sodium (Porcine) (HEPARIN SODIUM) 3,000 UNIT ASDIR PRN DIALYSIS Lidocaine HCl (LIDOCAINE HCL/PF) 0.5 ML ASDIR NV N I-DERMAL (CKD) Mannitol (Mannitol 20%) 12.5 GM ASDIR PRN IV Sodium Chloride (SODIUM CHLORIDE 0.9%) 2,000 ML ASDIR PRN IV Tamsulosin HCl (Flomax 0.4 mg) 0.4 MG BEDTIME PO Status post: 07/08/22 CABG x 5 (MISTRY-LAD, SVG-Ladonna, SVG-OM1< SV G-OM3, SVG-PDA) ALAA Physical Exam General appearance: alert, awake, oriented, no a cute distress, pleasant, conversational ENT: moist mucosal membranes Neck: no JVD Cardiovascular: CV assessment: regular rate and rhythm, no murm ur Respiratory: decreased breath sounds, no distres s Abdomen: soft, non-tender, normal bowel sounds, no distention, no guarding Upper extremity: UE assessment: normal temperature, no edema Lower extremity: LE assessment: edema (RLE trace), normal temper ature, no edema Musculoskeletal: normal inspection 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: alert, oriented X 3, normal speech Skin: dry Psychiatry: normal affect Results Findings/Data: Laboratory Tests 07/14 07/14 1043 0337 Chemistry Sodium (134 - 147 mEq/L) 133 L 137 Potassium (3.4 - 5.0 mEq/L) 4.8 5.1 H Chloride (100 - 108 mEq/L) 101 104 Carbon Dioxide (21 - 33 mEq/l) 21 22 Anion Gap (0 - 20) 15 16 BUN (7 - 18 mg/dL) 51 H 48 H Creatinine (0.6 - 1.3 mg/dL) 5.4 H 4.8 H Glomerular Filtr Rate (70 - 80) 10.1 L 11.7 L Glucose (70 - 110 mg/dL) 126 H 92 Calcium (8.0 - 10.5 mg/dL) 8.4 8.5 Magnesium (1.80 - 2.40 mg/dL) 2.40 Laboratory Tests 07/14 0337 Hematology WBC (4.5 - 11.0 x10 3/uL) 13.0 H RBC (4.00 - 5.60 x10 6/uL) 2.82 L Hgb (12.5 - 16.9 g/dL) 8.3 L Hct (37.5 - 50.7 %) 26.2 L MCV (81.0 - 99.0 fL) 92.9 MCH (27.0 - 33.0 pg) 29.4 MCHC (33.0 - 37.0 g/dL) 31.7 L RDW (11.5 - 14.5 %) 16.4 H Plt Count (150 - 400 x10 3/uL) 204 MPV (7.0 - 9.0 fL) 10.8 H Neut % (Auto) (56.0 - 77.0 %) 75.4 Lymph % (Auto) (14.0 - 32.0 %) 5.1 L [place] % (Auto) (4.8 - 9.0 %) 10.1 H Eos % (Auto) (0.3 - 3.7 %) 7.1 H Baso % (Auto) (0.0 - 2.0 %) 0.5 Neut # (Auto) (2.0 - 7.6 x10 3/uL) 9.80 H Lymph # (Auto) (1.0 - 3.8 x10 3/uL) 0.67 L [place] # (Auto) (0.1 - 0.8 x10 3/uL) 1.32 H Eos # (Auto) (0.0 - 0.2 x10 3/uL) 0.92 H Baso # (Auto) (0.0 - 0.2 x10 3/uL) 0.07 Abs Immat Gran (auto) (0.00 - 0.03 x10 3/uL) 0. 24 H Add Manual Diff NO Immature Gran % (0.0 - 2.0 %) 1.8 Nucleated RBC % (0 - 0 %) 0.0 Nucleated RBCs # (Man) (0.0 - 0.1 x10 3/uL) 0.0 0 Laboratory Tests 07/14 0337 Chemistry Magnesium (1.80 - 2.40 mg/dL) 2.40 Radiology data: Recent Impressions: RADIOLOGY - XR CHEST 1 V 07/14 06 Report Impression - Status: SIGNED Entered: 07/14/2022 0915 IMPRESSION: 1. Moderate left apical pneumothorax, similar to prior radiograph. Left chest tube in place. 2. Unchanged small bilateral pleural effusions w ith bibasilar airspace disease. Impression By: [email or web address] - Sheldon Kenney M.D. RADIOLOGY - XR CHEST 1 V 07/14 1411 Report Impression - Status: SIGNED Entered: 07/14/2022 1509 IMPRESSION: Interval placement of left chest tube near the a pex with decreased size of left pneumothorax now small. Otherwise, stable exam. Impression By: [email or web address] - Ranjan Sesay M.D. CAT SCAN - CT GUID [facility] (Biopsy/Asp) 07/14 1509 Report Impression - Status: SIGNED Entered: 07/14/2022 1519 IMPRESSION: CT-guided left chest tube placement. Impression By: [email or web address] - Mario Maldonado Telemetry Interpretation: sinus rhythm Echo results: 1. Left ventricle: The cavity size is at the upp er limits of normal. Wall thickness is mildly increased. Systolic fu nction is severely reduced. The estimated ejection fraction is 20- 24%. Severe hypokinesis of the entire myocardium. Features are consistent with a pseudonormal left ventricular filling pattern, with concomitant abnormal relaxation and increased filling press ure (grade 2 diastolic dysfunction). 2. Right ventricle: Systolic function is mildly reduced. 3. Pericardium, extracardiac: A trivial pericard ial effusion is identified along the right ventricular free wal l. There is a right pleural effusion. Diagnosis, Assessment Plan Problem List/A P: 1. HTN (hypertension) 2. CLAUDETTE (acute kidney injury) 3. CAD (coronary artery disease) 4. Dyslipidemia 5. BPH (benign prostatic hyperplasia) Plan discussed with: patient, consultants, nurse Free Text DxA P Notes Free Text DxA P Notes: Mr. Arce is a pleasant 81 y/o M w/ PMHx: HTN, HLD presented to [facility] on 06/28/22 for chest pa in and sob. He was diagnosed NSTEMI w/ Trop was peaked 7600's, EKG w/ normal ST and CLAUDETTE w/ Cr 14 on admission. He underwent LHC on 07/[address] Layne which showed severe mLM 70% stenosis, pLAD diffuse 80% stenosis, mLA D 60% and focal 70% stenosis; pLCx 80% stenosis, dLCx 70% stenosis, pOM 60% stenosis; p RCA 40% stenosis, mRCA 60% stenosis and diffuse 50-60% dRCA. He transferred to [facility] for CABG. - CAD/NSTEMI s/p CABG CABG x 5 (MISTRY-LAD , SVG-Ladonna, SVG-OM1, SVG-OM3, SVG-PDA), ALAA On statins, BB, ASA, plavix repeat echo 07/11/21 LVEF 20-24%, preoperative Ec ho LVEF was 30-34%, Postop care per CTS 07/14/22 - left apical pneumothorax s/p I R- guided pigtail chest tube placement off pressors - Ischemic CMP with Acute Systolic and Diastolic HF LVEF 20-24% strict I/Os, daily weights, fluid restriction, low NA diet diuresis per Nephrology no charly/arb/aldactone due to CLAUDETTE continue low dose BB, no ACEI, ARB, ARNI d/t AK I and bordeline hypotension repeat echo 07/11/21 LVEF 20-24%, preoperative Ec ho LVEF was 30-34% - CLAUDETTE - per nephrology likely from obstructive uropathy. Renal ultrasound showed severe thickening of th e bladder, cholelitiasis. - HTN. hypotension post-op off Pressors. Midodrine 5mg po tid. - HLD. On statins. - Anemia. monitor at 1613 Electronically Signed by Liset Ennis MD on at 1057 RPT #:[id number] END OF REPORT 2022-07-14 14:30:00-00:00 [facility] Critical Care Progress Note REPORT#:[id number] REPORT STATUS: Signed DATE:07/14/22 TIME: 1430 PATIENT: SHERRI ARCE UNIT #: [id number] ROOM/BED: [place] [address] : 42 AGE: 81 SEX: M ATTEND: Sam Mcarthur MD ADM AUTHOR: Jana Mittal MD * ALL edits or amendments must be made on the [email or web address] document * Subjective Chief complaint: CABG HPI: This is 81 years old male with medical history s ignificant for HTN and dyslipidemia [facility] pain and found to have a NSTEMI and also acute r enal failure. He underwent cardiac cath and was found to have sever e CAD including left main disease with EF of 30 to 35% and ischemic cardiomyopathy. Transfer here for CABG evaluation. CV surgery were consulted an d the patient earlier today underwent CABG x 5 (MISTRY -LAD, SVG-Ladonna, SVG-OM1< SVG-OM3, SVG-PDA) and AL AA. His intraoperative course was without significant occurrence. The patient was brought to CVICU intubated and ventilated on milrinone drip, norepinephrine drip, epinephrine drip and vasopressin drip. His initial ABG showed metabolic acidosi s and he received 2 A of sodium bicarb and 1 g of calcium. The patient started to wake up later in the even ing but he looked weak, so he was reversed with neostigmine and glycopyrrolate . His motor strength improved significantly after that and his spontaneous lenard athing trial was good on the following ABG showed some metabolic acid osis. The patient will be extubated to a BiPAP as his CO2 was high on the ABG. Comments: Interval history- Patient with persistent pneumothorax, will get I R pigtail making good urine Objective General VS/I O Last Documented: Result Date Time Pulse Ox 98 07/14 1202 B/P 109/60 07/14 1202 O2 Delivery Nasal cannula 07/14 1202 Pulse 80 07/14 1202 Resp 15 07/14 1202 Temp 36.6 07/14 1200 O2 Flow Rate 3 07/14 1151 B/P Mean 72 07/14 0800 FiO2 21 07/14 0754 24 hour I O ending at 0700: 07/14 0700 02 1900 Intake Total 500 1200 Output Total 1515 1135 Balance -1015 65 Intake, Oral 500 960 Intake, Oral 240 Supplement Output, Chest 265 260 Tube Drainage Output, Urine 1250 875 PATIENT WEIGHT: Weight (lb): 200 Weight (oz): 13.46 Weight (kg): 91.100 Medications: Active Meds + DC'd Last 24 Hrs Fentanyl Citrate (SUBLIMAZE) 0 .STK-MED ONE .RO [place] (DC) Dextrose/Water (DEXTROSE 10% IN WATER) [address] AT STA IV (DC) Insulin Human Regular (HUMAN INSULIN REG) 10 UNI TS STAT STA IV (DC) Midodrine (PROAMATINE) 5 MG 0900,1300,1700 PO Sodium Bicarbonate (SODIUM BICARBONATE) 650 MG B ID PO Ipratropium Kersey (ATROVENT) 500 MCG RTQ2H PRN PRN INH Lactulose (LACTULOSE) 20 GM DAILY PRN PRN PO Cyanocobalamin (Vitamin B-12 500 mcg tab) 500 MC G DAILY PO Ferrous Sulfate (FERROUS SULFATE) 325 MG DAILY P O Dopamine HCl/Dextrose (DOPamine 400MG/D5W 250ML) 250 ML ASDIR IV Bisacodyl (DULCOLAX) 10 MG ONCE PRN RECTAL Atorvastatin Calcium (LIPITOR) 40 MG 2100 PO Clopidogrel Bisulfate (Plavix) 75 MG DAILY PO Polyethylene Glycol (MIRALAX) 17 GM DAILY PO Miscellaneous Information (PHARMACY TO DOSE/EVAL UATE) 1 EACH ASDIR MISC Calcium Chloride (CALCIUM CHLORIDE) 1 GM ASDIR P RN IV Sodium Chloride (SODIUM CHLORIDE 0.9%) 100 ML Calcium Chloride (CALCIUM CHLORIDE) 2 GM ASDIR P RN IV Sodium Chloride (SODIUM CHLORIDE 0.9%) 100 ML Magnesium Sulfate (MAGNESIUM SULFATE 4GM/SWFI 10 0ML) 100 ML ASDIR PRN IV Magnesium Sulfate (MAGNESIUM SULFATE 2GM/SWFI 50 ML) 50 ML ASDIR PRN IV Miscellaneous (PRISMASATE BGK 4/2.5 SOLUTION) 5, 000 ML ASDIR DIALYSIS Potassium Chloride (KCL 10MEQ/SWFI 50ML) 50 ML A SDIR PRN IV Sodium Chloride (SODIUM CHLORIDE 0.9%) 2,000 ML ASDIR PRN IV Sodium Phosphate (SODIUM PHOSPHATE) 25 MMOL ASDI R PRN IV Sodium Chloride (SODIUM CHLORIDE 0.9%) 250 ML Sodium Phosphate (SODIUM PHOSPHATE) 20 MMOL ASDI R PRN IV Sodium Chloride (SODIUM CHLORIDE 0.9%) 250 ML Sodium Phosphate (SODIUM PHOSPHATE) 15 MMOL ASDI R PRN IV Sodium Chloride (SODIUM CHLORIDE 0.9%) 250 ML Pantoprazole (PROTONIX) 40 MG DAILY@0600 PO Aspirin (ASPIRIN) 81 MG DAILY PO Vasopressin (VASOSTRICT 20 Unit/NS 100ML) 100 ML ASDIR IV (CKD) Amiodarone HCl (CORDARONE) 200 MG TID PO Docusate Sodium (COLACE) 100 MG BID PO Sennosides (Senna Lax 8.6 MG TABLET) 17.2 MG BED TIME PO Ipratropium Kersey (ATROVENT) 500 MCG RTQ4H INH Acetaminophen (TYLENOL) 650 MG Q4H PRN PRN PO Acetaminophen (TYLENOL) 650 MG Q4H PRN PRN RECTA L Calcium Chloride (CALCIUM CHLORIDE) 1 GM ASDIR P RN IV Dextrose/Water (DEXTROSE 10% IN WATER) 125 ML DIR PRN IV (CKD) Dextrose/Water (DEXTROSE 10% IN WATER) 250 ML DIR PRN IV (CKD) Epinephrine (ADRENALIN CHLORIDE) 4 MG ASDIR IV Dextrose/Water (DEXTROSE 5% WATER) 246 ML Glucagon (GLUCAGON) 1 MG ASDIR PRN IM Magnesium Sulfate (MAGNESIUM SULFATE 4GM/SWFI 10 0ML) 100 ML ASDIR PRN IV Magnesium Sulfate (MAGNESIUM SULFATE 2GM/SWFI 50 ML) 50 ML ASDIR PRN IV Magnesium Sulfate/Dextrose (MAGNESIUM SULFATE 1G M/D5W 100ML) 100 ML ASDIR PRN IV Nitroglycerin/Dextrose (NITROGLYCERIN 50,000MCG/ D5W 250ML) 250 ML ASDIR IV Norepinephrine Bitartrate (NOREPINEPHRINE 8 MG/N S 250 ML) 250 ML TITRATE IV Ondansetron HCl (ZOFRAN) 4 MG Q6H PRN PRN IV Oxycodone HCl (ROXICODONE) 5 MG Q4H PRN PRN PO ( DC) Oxycodone HCl (ROXICODONE) 10 MG Q4H PRN PRN PO (DC) Potassium Chloride (KCL 20MEQ/SWFI 100ML) 100 ML ASDIR PRN IV Sodium Bicarbonate (SODIUM BICARBONATE) 50 MEQ A SDIR PRN IV Sodium Chloride (SODIUM CHLORIDE 0.9%) 250 ML Q2 4H IV (DC) Albumin Human (ALBUMINAR-25%) 12.5 GM ASDIR PRN IV Heparin Sodium (Porcine) (HEPARIN SODIUM) 3,000 UNIT ASDIR PRN DIALYSIS Lidocaine HCl (LIDOCAINE HCL/PF) 0.5 ML ASDIR NV N I-DERMAL (CKD) Mannitol (Mannitol 20%) 12.5 GM ASDIR PRN IV Sodium Chloride (SODIUM CHLORIDE 0.9%) 2,000 ML ASDIR PRN IV Tamsulosin HCl (Flomax 0.4 mg) 0.4 MG BEDTIME PO Results Findings/data: Laboratory Tests 07/14 07/14 1043 0337 Chemistry Sodium (134 - 147 mEq/L) 133 L 137 Potassium (3.4 - 5.0 mEq/L) 4.8 5.1 H Chloride (100 - 108 mEq/L) 101 104 Carbon Dioxide (21 - 33 mEq/l) 21 22 Anion Gap (0 - 20) 15 16 BUN (7 - 18 mg/dL) 51 H 48 H Creatinine (0.6 - 1.3 mg/dL) 5.4 H 4.8 H Glomerular Filtr Rate (70 - 80) 10.1 L 11.7 L Glucose (70 - 110 mg/dL) 126 H 92 Calcium (8.0 - 10.5 mg/dL) 8.4 8.5 Magnesium (1.80 - 2.40 mg/dL) 2.40 Laboratory Tests 02/06 0337 Hematology WBC (4.5 - 11.0 x10 3/uL) 13.0 H RBC (4.00 - 5.60 x10 6/uL) 2.82 L Hgb (12.5 - 16.9 g/dL) 8.3 L Hct (37.5 - 50.7 %) 26.2 L MCV (81.0 - 99.0 fL) 92.9 MCH (27.0 - 33.0 pg) 29.4 MCHC (33.0 - 37.0 g/dL) 31.7 L RDW (11.5 - 14.5 %) 16.4 H Plt Count (150 - 400 x10 3/uL) 204 MPV (7.0 - 9.0 fL) 10.8 H Neut % (Auto) (56.0 - 77.0 %) 75.4 Lymph % (Auto) (14.0 - 32.0 %) 5.1 L [place] % (Auto) (4.8 - 9.0 %) 10.1 H Eos % (Auto) (0.3 - 3.7 %) 7.1 H Baso % (Auto) (0.0 - 2.0 %) 0.5 Neut # (Auto) (2.0 - 7.6 x10 3/uL) 9.80 H Lymph # (Auto) (1.0 - 3.8 x10 3/uL) 0.67 L [place] # (Auto) (0.1 - 0.8 x10 3/uL) 1.32 H Eos # (Auto) (0.0 - 0.2 x10 3/uL) 0.92 H Baso # (Auto) (0.0 - 0.2 x10 3/uL) 0.07 Abs Immat Gran (auto) (0.00 - 0.03 x10 3/uL) 0. 24 H Add Manual Diff NO Immature Gran % (0.0 - 2.0 %) 1.8 Nucleated RBC % (0 - 0 %) 0.0 Nucleated RBCs # (Man) (0.0 - 0.1 x10 3/uL) 0.0 0 Laboratory Tests 07/14/22 1043: [Embedded Image Not Available] 07/14/22336: [Embedded Image Not Available] Radiology data Recent Impressions: RADIOLOGY - XR CHEST 1 V 07/14 626 Report Impression - Status: SIGNED Entered: 07/14/2022 0915 IMPRESSION: 1. Moderate left apical pneumothorax, similar to prior radiograph. Left chest tube in place. 2. Unchanged small bilateral pleural effusions w ith bibasilar airspace disease. Impression By: [email or web address] - Sheldon Kenney M.D. 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 CLAUDETTE (acute kidney injury) 2. CAD (coronary artery disease) 3. Goiter 4. BPH (benign prostatic hyperplasia) 5. Dyslipidemia 6. HTN (hypertension) Free text A P: 73-year-old male with Acute pulmonary insufficiency following thoracic surgery Status post CABG x 5 (MISTRY-LAD, SVG-Ladonna, SVG-OM1 < SVG-OM3, SVG-PDA) and ALAA Acute blood loss anemia Hypotension Ischemic cardiomyopathy, EF 30 to 34% Multivessel CAD CLAUDETTE on hemodialysis Continue mechanical ventilation, vent settings r eviewed Titrate FiO2 to keep saturation more than 90%. Spontaneous breathing trial as soon as possible Wean to extubate Follow ABGs and CXRs ABG shows metabolic acidosis. Patient re ceived 2 A of sodium bicarb and 1 g of calcium Keep off sedation Judicious pain control Milrinone drip 0.25 Epinephrine drip Norepinephrine drip Vasopressin drip Titrate drips to keep MAP more than 65 Wean milrinone off first per CV surgery Minimize fluids per CV surgery Aspirin and Plavix Atorvastatin Metoprolol Follow lactate level Monitor chest tube output Hemodialysis per nephrology Monitor urine output and kidney function Monitor and replete electrolytes Perioperative antibiotics Cardiac diet with bowel regimen once extubated BG control with insulin gtt per protocol PT/OT VTE prophylaxis. Stress ulcer prophylaxis. Discussed with CV surgery, anesthesia and ICU te am Critical care time 85 minutes 07/09 Appears neuro intact, multimodal pain control, m inimize narcotic use, no CO2 narcosis Extubated successfully, sats well on NC, wean O2 , monitor for hypercapnia, encourage I-S, obtain serial ABGs, CXR reviewed HD unstable, weaning vasopre ssors and inotrope, monitor HD parameters, low CVP, lactic acidosis with uptrending lactate, gentle volume resuscitation Oliguric CLAUDETTE, plan for CRRT per renal, h yperkalemia treated, obtain serial lab PO challenge, bowel regimen, serial abdominal ex am, monitor LFTs Leukocytosis postop, likely reactive, trend WBC, s/p antibiotic course for UTI , periop antibiotics Hgb trending down, no eviden ce of active bleed, monitor CTs output, RBC given HD instability Blood glucose control with insulin drip per prot ocol Encourage PT/OT and activity as tolerated DVT and GI prophylaxis with DAPT and PPI 2/2 Appears neuro intact, multimodal pain control, m inimize narcotic use sats well on NC, wean O2, encourage I-S, ABG and CXR reviewed HD fairly stable, on minimal vasopressor support , lactic acidosis cleared s/p resuscitation Oliguric CLAUDETTE, tolerated CRRT, holding off per re nal, monitor UOP and electrolytes closely Oral diet as tolerated, bowel regimen, monitor L FTs Leukocytosis postop, trend WBC, treated for UTI preop Hgb responded to PRBC, no evidence of active ble ed, minimal CTs output Blood glucose control, transitioned insulin drip to SSI Encourage PT/OT and out of bed as tolerated DVT and GI prophylaxis with DAPT and PPI 2/3 Remains neuro intact, pain appears well controll ed Sats well on NC, wean O2, encourage I-S, ABG and CXR reviewed HD unstable, remains on minimal vasopressor supp ort, attempt to wean, start midodrine Oliguric CLAUDETTE, off CRRT per r enal, minimal UOP, started renal dose dopamine drip Tolerating oral diet, continue bowel regimen, LF Ts normalized Leukocytosis postop, continue to trend WBC, keira georgi for UTI preop Hgb stable s/p PRBC, no evidence of active bleed , monitor pCT output Blood glucose control with sliding scale insulin Encourage PT/OT and out of bed as tolerated, CM for dispo plan DVT and GI prophylaxis with DAPT and PPI 2/ Remains neuro intact, pain appears well controll ed Sats well on NC, wean O2, encourage I-S, ABG and CXR reviewed HD unstable, weaning vasopressors, increase mido drine dose, remains in SR CLAUDETTE, likely postrenal, improved UOP, HD today pe r renal, hyperkalemia treated Tolerating oral diet, has bowel movement and bow el regimen, LFTs normalized Leukocytosis, WBC trending d own, currently off antibiotics s/p treatment for UTI Hgb remains stable s/p PRBC, no evidence of acti ve bleed, minimal CT output Blood glucose control with sliding scale insulin Encourage PT/OT and out of bed as tolerated, CM for dispo plan, IPR consulted DVT and GI prophylaxis with DAPT and PPI 2/ Remains neuro intact, pain appears well controll ed Sats well, wean O2, encourage I-S, ABG and CXR r eviewed, has left PTX HD stable off vasopressors, increased midodrine dose CLAUDETTE, likely postrenal, makin g urine, HD per renal, renal US with hydronephrosis Tolerating oral diet, has bowel movement and bow el regimen Leukocytosis, WBC trending down, monitor off antibiotics s/p treatment for UTI Hgb remains stable s/p PRBC, no evidence of acti ve bleed, keep CT to suction Blood glucose control with sliding scale insulin Tolerating PT/OT, CM for dispo plan, IPR on boar d DVT and GI prophylaxis with DAPT and PPI 2/ Neuro Intact. Pain well controlled. Is off oxygen. On room air saturating more than 94%. Imaging chest x-ray reviewed. Still has a persistent left pneumothor ax. IR guided pigtail was placed today , CXR shows expansion of the lung Maintaining the blood pressure on midodrine 5 3 times daily. Making good urine. Monitor the potassium . As per renal we will see if he needs dialysis tomorrow then will need a tunneled cath eter. White count remained stable. No antibiotics. And bowel movement. Continue bowel regimen. Urology evaluation pending. PT OT. Pending rehab placement when medically re edith. Total care time 34 minutes excluding procedure Consultants: cardiology, cardiovascular surgery, nephrology Quality: Gen Med Crit Care VTE Prophylaxis VTE prophylaxis initiated: yes Electronically Signed by Jana Mittal MD on 0 07/14/22 at 1455 RPT #:[id number] END OF REPORT 2022-07-14 09:09:00-00:00 [facility] Cardiothoracic Surgery Prog REPORT#:[id number] REPORT STATUS: Signed DATE:07/14/22 TIME: 908 PATIENT: SHERRI ARCE UNIT #: [id number] ROOM/BED: [place] [address] : 42 AGE: 81 SEX: M ATTEND: Srinath Kaur MD ADM AUTHOR: Gianna Hoover * ALL edits or amendments must be made on the [email or web address] document * General Post-op: day 6 Status post: 07/08/22 CABG x 5 (MISTRY-LAD, SVG-Ladonna, SVG-OM1< SVG-OM3, SVG-PDA) ALAA EVH (RGSV) Subjective Chief complaint: s/p CABG no complaints Review of Systems Constitutional: Denies: chills, fever, malaise. Allergy/Immun: Denies: allergic reaction. Respiratory: Denies: SOB. Cardiovascular: Denies: chest pain, palpitations. GI: Denies: abdominal pain, nausea, vomiting. : Denies: dysuria, hematuria. Heme: Denies: bleeding. Neuro: Denies: dizziness, headache, vision change. All systems rev neg: except as marked Objective General VS/I O Last Documented: Result Date Time Pulse Ox 96 07/14 806 Pulse 81 07/14 08 Resp 24 07/14 0807 B/P 101/53 07/14 0800 B/P Mean 72 07/14 08 O2 Delivery Nasal cannula 07/14 323 O2 Flow Rate 2 07/14 323 Temp 98.6 07/13 1999 FiO2 50 07/08 1918 24 hour I O ending at 0700: 02/06 0700 02/ 1900 Intake Total 500 1200 Output Total 1515 1135 Balance -1015 65 Intake, Oral 500 960 Intake, Oral 240 Supplement Output, Chest 265 260 Tube Drainage Output, Urine 1250 875 PATIENT WEIGHT: Weight (lb): 200 Weight (oz): 13.46 Weight (kg): 91.100 Dietitian Nutrition assessment The data set between the solid lines has been im ported from the dietitian's assessment. BMI Calculated: 27.2 Nutrition related diagnosis: Nutrition diagnosis details: Nutrition problem: Increased nutrient needs Nutrition etiology: Chronic disease Nutrition signs and symptoms: ESTIMATED NEEDS S/ P CABG Nutrition prescription: 1. R ECOMMEND CONTIUE CARDIAC DIET, MONITOR LABS WITH PT ON DIALYSIS. 2. CONTINUE NEPRO BID. 3. DIET EDUC ATION PRIOR TO DISCHARGE. 4. MONITOR PO, WT, LABS, BM. Dietitian name: Trang Rodriguez, DIET Assessment completed: 07/10/22 Physical Exam General appearance: alert, awake, oriented Wound/incision: Location: sternal Site condition: dressing clean dry, dressing in tact HEENT: anicteric, mucosal membranes moist Neck: supple/no meningismus Cardiovascular: normal heart sounds, regular rat e rhythm Respiratory: aerating well, symmetric expansion, no distress Abdomen: soft, non-tender, no distention Genitourinary: waters, oN hd Extremities: moves all 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ALTH: alert, oriented X 3, normal speech, n o motor deficits Psychiatry: normal affect, normal mood Current Medications Medications: Active Meds + DC'd Last 24 Hrs Dextrose/Water (DEXTROSE 10% IN WATER) [address] AT STA IV (DC) Insulin Human Regular (HUMAN INSULIN REG) 10 UNI TS STAT STA IV (DC) Midodrine (PROAMATINE) 5 MG 0900,1300,1700 PO Sodium Bicarbonate (SODIUM BICARBONATE) 650 MG B ID PO Ipratropium Kersey (ATROVENT) 500 MCG RTQ2H PRN PRN INH Lactulose (LACTULOSE) 20 GM DAILY PRN PRN PO Cyanocobalamin (Vitamin B-12 500 mcg tab) 500 MC G DAILY PO Ferrous Sulfate (FERROUS SULFATE) 325 MG DAILY P O Dopamine HCl/Dextrose (DOPamine 400MG/D5W 250ML) 250 ML ASDIR IV Bisacodyl (DULCOLAX) 10 MG ONCE PRN RECTAL Atorvastatin Calcium (LIPITOR) 40 MG 2100 PO Clopidogrel Bisulfate (Plavix) 75 MG DAILY PO Polyethylene Glycol (MIRALAX) 17 GM DAILY PO Miscellaneous Information (PHARMACY TO DOSE/EVAL UATE) 1 EACH ASDIR MISC Calcium Chloride (CALCIUM CHLORIDE) 1 GM ASDIR P RN IV Sodium Chloride (SODIUM CHLORIDE 0.9%) 100 ML Calcium Chloride (CALCIUM CHLORIDE) 2 GM ASDIR P RN IV Sodium Chloride (SODIUM CHLORIDE 0.9%) 100 ML Magnesium Sulfate (MAGNESIUM SULFATE 4GM/SWFI 10 0ML) 100 ML ASDIR PRN IV Magnesium Sulfate (MAGNESIUM SULFATE 2GM/SWFI 50 ML) 50 ML ASDIR PRN IV Miscellaneous (PRISMASATE BGK 4/2.5 SOLUTION) 5, 000 ML ASDIR DIALYSIS Potassium Chloride (KCL 10MEQ/SWFI 50ML) 50 ML A SDIR PRN IV Sodium Chloride (SODIUM CHLORIDE 0.9%) 2,000 ML ASDIR PRN IV Sodium Phosphate (SODIUM PHOSPHATE) 25 MMOL ASDI R PRN IV Sodium Chloride (SODIUM CHLORIDE 0.9%) 250 ML Sodium Phosphate (SODIUM PHOSPHATE) 20 MMOL ASDI R PRN IV Sodium Chloride (SODIUM CHLORIDE 0.9%) 250 ML Sodium Phosphate (SODIUM PHOSPHATE) 15 MMOL ASDI R PRN IV Sodium Chloride (SODIUM CHLORIDE 0.9%) 250 ML Pantoprazole (PROTONIX) 40 MG DAILY@0600 PO Aspirin (ASPIRIN) 81 MG DAILY PO Vasopressin (VASOSTRICT 20 Unit/NS 100ML) 100 ML ASDIR IV (CKD) Amiodarone HCl (CORDARONE) 200 MG TID PO Docusate Sodium (COLACE) 100 MG BID PO Sennosides (Senna Lax 8.6 MG TABLET) 17.2 MG BED TIME PO Ipratropium [place] (ATROVENT) 500 MCG RTQ4H INH Acetaminophen (TYLENOL) 650 MG Q4H PRN PRN PO Acetaminophen (TYLENOL) 650 MG Q4H PRN PRN RECTA L Calcium Chloride (CALCIUM CHLORIDE) 1 GM ASDIR P RN IV Dextrose/Water (DEXTROSE 10% IN WATER) 125 ML DIR PRN IV (CKD) Dextrose/Water (DEXTROSE 10% IN WATER) 250 ML DIR PRN IV (CKD) Epinephrine (ADRENALIN CHLORIDE) 4 MG ASDIR IV Dextrose/Water (DEXTROSE 5% WATER) 246 ML Glucagon (GLUCAGON) 1 MG ASDIR PRN IM Magnesium Sulfate (MAGNESIUM SULFATE 4GM/SWFI 10 0ML) 100 ML ASDIR PRN IV Magnesium Sulfate (MAGNESIUM SULFATE 2GM/SWFI 50 ML) 50 ML ASDIR PRN IV Magnesium Sulfate/Dextrose (MAGNESIUM SULFATE 1G M/D5W 100ML) 100 ML ASDIR PRN IV Nitroglycerin/Dextrose (NITROGLYCERIN 50,000MCG/ D5W 250ML) 250 ML ASDIR IV Norepinephrine Bitartrate (NOREPINEPHRINE 8 MG/N S 250 ML) 250 ML TITRATE IV Ondansetron HCl (ZOFRAN) 4 MG Q6H PRN PRN IV Oxycodone HCl (ROXICODONE) 5 MG Q4H PRN PRN PO ( DC) Oxycodone HCl (ROXICODONE) 10 MG Q4H PRN PRN PO (DC) Potassium Chloride (KCL 20MEQ/SWFI 100ML) 100 ML ASDIR PRN IV Sodium Bicarbonate (SODIUM BICARBONATE) 50 MEQ A SDIR PRN IV Sodium Chloride (SODIUM CHLORIDE 0.9%) 250 ML Q2 4H IV (DC) Albumin Human (ALBUMINAR-25%) 12.5 GM ASDIR PRN IV Heparin Sodium (Porcine) (HEPARIN SODIUM) 3,000 UNIT ASDIR PRN DIALYSIS Lidocaine HCl (LIDOCAINE HCL/PF) 0.5 ML ASDIR NV N I-DERMAL (CKD) Mannitol (Mannitol 20%) 12.5 GM ASDIR PRN IV Sodium Chloride (SODIUM CHLORIDE 0.9%) 2,000 ML ASDIR PRN IV Tamsulosin HCl (Flomax 0.4 mg) 0.4 MG BEDTIME PO Results Findings/Data: Laboratory Tests 07/13 1029 Blood Gas O2 Saturation (90 - 100 %) 95.9 ABG pH (7.35 - 7.45) 7.388 ABG pCO2 (35.0 - 45 mmHg) 31.6 L ABG pO2 (80 - 100.0 mmHg) 80.5 ABG HCO3 (22.0 - 26.0 MMOL/L) 19.0 L ABG Total CO2 20.0 ABG Base Excess (-4.0 - 4.0 MMOL/L) -5.9 L ABG Hematocrit (37.5 - 50.7 %) 26 L ABG Hemoglobin (12.5 - 16.9 G/DL) 9.0 L Sodium (134 - 147 mmol/L) 134 Potassium (3.4 - 5.0 mmol/L) 4.4 Chloride (100 - 108 mmol/L) 104 Ionized Calcium (1.12 - 1.32 MMOL/L) 1.11 L Lactic Acid (0.9 - 1.7 mmol/l) 1.8 H O2 Delivery Device Room Air Laboratory Tests 07/14 07/13 0337 1029 Chemistry Sodium (134 - 147 mEq/L) 137 Potassium (3.4 - 5.0 mEq/L) 5.1 H Chloride (100 - 108 mEq/L) 104 Carbon Dioxide (21 - 33 mEq/l) 22 Anion Gap (0 - 20) 16 BUN (7 - 18 mg/dL) 48 H Creatinine (0.6 - 1.3 mg/dL) 4.8 H POC Creatinine (0.8 - 1.3 mg/dL) 4.4 H Glomerular Filtr Rate (70 - 80) 11.7 L Glucose (70 - 110 mg/dL) 92 POC Glucose (mg/dL) (70 - 110 MG/DL) 137 H Calcium (8.0 - 10.5 mg/dL) 8.5 Magnesium (1.80 - 2.40 mg/dL) 2.40 Laboratory Tests 07/14 0337 Hematology WBC (4.5 - 11.0 x10 3/uL) 13.0 H RBC (4.00 - 5.60 x10 6/uL) 2.82 L Hgb (12.5 - 16.9 g/dL) 8.3 L Hct (37.5 - 50.7 %) 26.2 L MCV (81.0 - 99.0 fL) 92.9 MCH (27.0 - 33.0 pg) 29.4 MCHC (33.0 - 37.0 g/dL) 31.7 L RDW (11.5 - 14.5 %) 16.4 H Plt Count (150 - 400 x10 3/uL) 204 MPV (7.0 - 9.0 fL) 10.8 H Neut % (Auto) (56.0 - 77.0 %) 75.4 Lymph % (Auto) (14.0 - 32.0 %) 5.1 L [place] % (Auto) (4.8 - 9.0 %) 10.1 H Eos % (Auto) (0.3 - 3.7 %) 7.1 H Baso % (Auto) (0.0 - 2.0 %) 0.5 Neut # (Auto) (2.0 - 7.6 x10 3/uL) 9.80 H Lymph # (Auto) (1.0 - 3.8 x10 3/uL) 0.67 L [place] # (Auto) (0.1 - 0.8 x10 3/uL) 1.32 H Eos # (Auto) (0.0 - 0.2 x10 3/uL) 0.92 H Baso # (Auto) (0.0 - 0.2 x10 3/uL) 0.07 Abs Immat Gran (auto) (0.00 - 0.03 x10 3/uL) 0. 24 H Add Manual Diff NO Immature Gran % (0.0 - 2.0 %) 1.8 Nucleated RBC % (0 - 0 %) 0.0 Nucleated RBCs # (Man) (0.0 - 0.1 x10 3/uL) 0.0 0 Results: labs reviewed, vital signs stable, danilo turcios personally rev'd, x-ray personally reviewed, current med profile rev'd Treatment Prophylaxis Treatment Prophylaxis Drain(s)/tube(s): Drain(s)/tube(s): chest Quality: Trauma Gen Surg Advanced Care Plan 65 or Older Discussed with: patient Discussion included: living will (none), power of employment law attorney (none), code status ( full code) VTE Prophylaxis - General VTE prophylaxis initiated: yes Diagnosis, Assessment Plan Hospital course to date: This is a 81-year-old gentleman who presented to an outside hospital with complaints of chest pains while walking at his home on Thursday. He denies any previous history of coronary artery disease or o ther NE. He was seen and evaluated at [facility]. He was found to have a urinary tract infection with urinary retention and acute kidne y. He was started on dialysis via a left femoral temporary catheter. He underw ent dialysis on Thursday, Thursday. Renal has been consulted During his work-up at outside hospital he underw ent Left heart catheterization showing sever e Left Main 70%. LAD: Proximal diffuse 80% stenosis and then diffuse 60% in the midsegment and on the distal segment, there is focal 70% stenosis. Diagonal branches w ith luminal irregularities. Left circumflex, codominant circulation with pro ximal 80%, mid 80 to 90% and then in the OM, there is proximal 60%, distal le ft circumflex has a 70% stenosis. RCA large and dominant with proximal 4 0% stenosis, mid 60% stenosis and then diffuse 50% stenosi s all the way distally and the PLV and the PDA with luminal irregularities. CV surgery consulted for evaluation for coronary bypass graft. CAROTIDS - No carotid stenosis CT chest complete IMPRESSION: Small bilateral pleural effusions with bibasil ar atelectasis. Echo: 1. Left ventricle: The cavity size is at the upp er limits of normal. Wall thickness is mildly increased. Systolic fu nction is severely reduced. The estimated ejection fraction is 30- 34%. Moderate hypokinesis of the entire myocardium. Doppler p arameters are consistent with abnormal left ventricular relax ation (grade 1 diastolic dysfunction). 2. Pericardium, extracardiac: A small pericardia l effusion is identified along the left ventricular free wall, along the right ventricular free wall, and along the right atrial free wall . Assessment/Plan 1) CAD Mutlivessel Will obtain echo,carotids. 2) CLAUDETTE Started dialysis on Creatine 7.3 Renal consulted. 3) BPH- Urinary retention. Waters in place Workup for CABG underway. Will get functional assessment with PT. PFT pending Carotid dopplers- No disease Echo Pending Dialyiss per Renal. Baseline Cr unknown. 07/04 07/04 Doing well today, alert, up in the chair. Denies chest pain Echocardiogram showed LVEF 30 to 34%, mild MR, t rivial TR CT chest images reviewed Encourage I-S and mobilization Creatinine 5.5 from 7.3, good urine output. Pao l US showed bilateral severe hydronephrosis. Plan for HD today and tomorrow Will tentatively schedule patient for surgery on Thursday. Patient seen and plan reviewed with Dr Schwarz 07/05 Remains in a stable condition, denies chest pain BUN 53, creatinine 5.4. Plan for hemodia lysis today and tomorrow for clearance He is also on Lasix 20 mg IV twice daily, urine output 1.1 L overnight We will calculate risk of surgery with STS score Encourage I-S and mobilization Will tentatively schedule patient for surgery on Thursday. Pt seen and plan reviewed with Dr Schwarz 07/06 BUN 36, creatinine 4.4. Plan for hemodialysis to day Awaiting CABG tomorrow Surgery, risks involved, STS score, benefits, co mplications and alternatives were explained to the patient. He acknow ledged understanding and is willing to proceed N.p.o. after midnight Patient seen and plan reviewed with Dr. Schwarz 07/09/22 POD 1 CABG x 5 (MISTRY-LAD, SVG-Ladonna, SVG-OM1< SVG-OM3, S VG-PDA), ALAA, EVH (RGSV) Patient hemodynamically unstable, on epi at 4, a nd vaso .04, decreased uop overnight- 150cc Started patient on CRRT 2k/3.5 Wean epi as tolerated, Cardiac incex 2.8-3 labs and chest x-ray reviewed, electroly marcie stable, hgb 6.5- transfuse 2 units PRBC On 4l nasal cannula- encourage incentive spirome ter and deep breathing Keep both chest tubes and monitor outputs Glycemic control on insulin drip Cardiac diet Bowel regimen protocol Pain management SCDs for DVT and PPI for GI prophylaxis PT/OT Monitor patient closely in CVICU Plan of care discussed with Dr. Schwarz 07/10/22 POD 2 Patient alert, awake, and oriented, no distres n oted labs and CXR reviewed stable Breathing comfortably on 3l nasal cannula- wean as tolerated to melissa O2 sats > 92 % Encourage I-S use and deep breathing On CRRT- able to remove 2.9L overnight- nephrolo gy following Cardiac index 3.1- wean off epi drip Keep chest tubes for now and monitor outputs Transition to sliding scale insulin- cardiac t Try to get patient out of bed to chair today- am bulate with PT/OT SCDs for DVT prophylaxis Keep patient in CVICU for close monitoring 07/11/22 POD 3 Patient in stable condition, overnight e vents noted- decreased urine output 35 ml last night-started on dopamine gtt for renal perfusion Cardiac index 3.5- epi currently at 2- will disc ontinue today, vasopressin at 0.02, added low dose midodrine 2.5 mg TID, repea t echocardiogram. Renal Following- trial Lasix Patient has Left femoral tem p dialysis cath, Will need tunneled dialysis IJ cath placed if need dialysis. On 5l nasal cannula- wean off as tolerat ed, encourage incentive spirometer and deep breathing Keep left pleural chest tube and monitor output- > 200 cc Tolerating diet, bowel regimen protocol PT/OT- patient out of bed to chair today- encour age ambulation DVT prophylaxis with SCDs Monitor patient closely in CVICU Plan discussed with multidisciplinary team Plan discussed with Dr Schwarz/ Dr Rodríguez 07/12/22 POD 5, Patient resting comfortable. Patient with hx of urinary r etention- After standing today- voided 1.4 L. Needs Urology consult for retention K 5.4- HD in progress. Dr Plaza following. CT output 20- DC today. Pacers remain in place. Patient has Left femoral tem p dialysis cath, Re-evaluate on Thursday if ocean transportation intermediary dialysis needed. Card: Remains in sinus rhythm. Respir: on 7 L NC O2 95% Dispo: Rehab consulted Patient seen and exmained by Dr Rodríguez. Plan discussed with Team 07/13/22 POD 5 Patient with no new complaints. Recieved HD yest erday. Requiring less oxygen, now on 3l nasal cannula- continue to wean off CXR reviewed left apical pne umothorax 4cm/30%, Chest tube drained 140 overnight, placed back on suction to clear pneumo, CT drianed 200cc th is AM. on suction. Labs reviewed- stable, decreased WBC, hgb stable , CR 3.9 Eating welll, +BM UO- 550CC, BP improved on midodrine. Continue PT/OT, ambulation and incentive spirome ter use Rehab folowing Monitor in ICU today Disucssed with Dr Vidal Mir C femoral line and Central line today. DC art line. Will re-eval need for dialysis cath Thursday. Cons ider tunnelled cath if need. Patient seen and examined by Dr Rodríguez. Plan discussed with Care team. 2 POD 6 Patient in stable condition, no distress noted Remains on room air, O2 sats > 92%, encourage I- S use and deep breathing CXR shows moderate left apical pneumothorax unch anged CT remained on suction, no airleak no Consult IR for pigtail chest tube placement this morning Cardiac/renal diet Labs reviewed- K 5.1- repeat labs K 4.8 Nephrology following Continue therapy with PT/OT Follow up with urology for waters catheter- Dr Hunter carrera consulted. Monitor in CVICU Plan of care discussed with Dr Schwarz and multi disciplinary team Consultants: cardiology, cardiovascular surgery, nephrology Electronically Signed by Gianna Hoover on 0 07/14/22 at 1304 at 1944 RPT #:[id number] END OF REPORT 2022-07-14 05:21:00-00:00 [facility] REPORT#:[id number] REPORT STATUS: Signed DATE:07/14/22 TIME: 520 PATIENT: SHERRI ARCE UNIT #: [id number] ROOM/BED: [place] [address] : 42 AGE: 81 SEX: M ATTEND: Sam Mcarthur MD ADM AUTHOR: Magdaleno Washburn * ALL edits or amendments must be made on the [email or web address] document * Subjective Chief complaint: Rehab follow-up Seen in CCU States he feels really good today Still on dopamine drip Fatigues easily Pleasant Feels ok Denies NAIK/N/V/D/CP 14 systems reviewed and neg. except that above. Objective General VS: Vital Signs: Date Time Temp Pulse Resp B/P B/P Pulse O2 O2 F low FiO2 Mean Ox Delivery Rate 07/14 0324 95 Nasal 2 cannula 07/13 2007 95 Room air 07/13 2000 98.6 07/13 1600 76 37 122/65 89 94 07/13 1500 70 25 103/58 77 96 02/05 1400 74 22 102/58 77 95 02/05 1300 79 33 109/56 79 99 02/05 1200 82 31 103/56 72 95 02/05 1100 80 28 91/55 68 97 02/05 1000 110/36 53 02/05 1000 79 26 93/53 68 96 02/05 0930 110/38 53 02/05 0930 77 26 91/53 67 91 02/05 0900 103/37 54 02/05 0900 83 22 94/50 67 84 02/05 0830 106/34 50 02/05 0830 80 27 93/54 70 96 02/05 0800 98.3 02/05 0800 113/45 63 02/05 0800 81 26 100/64 74 88 02/05 0741 100 Room air 02/05 0730 124/47 62 02/05 0730 75 26 98/53 71 100 02/05 0700 100/42 55 02/05 0700 75 26 93/52 67 100 02/05 0600 121/46 63 02/05 0600 80 26 109/56 78 99 PATIENT WEIGHT: Weight (lb): 200 Weight (oz): 13.46 Weight (kg): 91.100 Medications: Active Meds + DC'd Last 24 Hrs Midodrine (PROAMATINE) 5 MG 0900,1300,1700 PO Sodium Bicarbonate (SODIUM BICARBONATE) 650 MG B ID PO Ipratropium Kersey (ATROVENT) 500 MCG RTQ2H PRN PRN INH Lactulose (LACTULOSE) 20 GM DAILY PRN PRN PO Cyanocobalamin (Vitamin B-12 500 mcg tab) 500 MC G DAILY PO Ferrous Sulfate (FERROUS SULFATE) 325 MG DAILY P O Dopamine HCl/Dextrose (DOPamine 400MG/D5W 250ML) 250 ML ASDIR IV Bisacodyl (DULCOLAX) 10 MG ONCE PRN RECTAL Atorvastatin Calcium (LIPITOR) 40 MG 2100 PO Clopidogrel Bisulfate (Plavix) 75 MG DAILY PO Polyethylene Glycol (MIRALAX) 17 GM DAILY PO Miscellaneous Information (PHARMACY TO DOSE/EVAL UATE) 1 EACH ASDIR MISC Calcium Chloride (CALCIUM CHLORIDE) 1 GM ASDIR PRN IV Sodium Chloride (SODIUM CHLORIDE 0.9%) 100 ML Calcium Chloride (CALCIUM CHLORIDE) 2 GM ASDIR P RN IV Sodium Chloride (SODIUM CHLORIDE 0.9%) 100 ML Magnesium Sulfate (MAGNESIUM SULFATE 4GM/SWFI 10 0ML) 100 ML ASDIR PRN IV Magnesium Sulfate (MAGNESIUM SULFATE 2GM/SWFI 50 ML) 50 ML ASDIR PRN IV Miscellaneous (PRISMASATE BGK 4/2.5 SOLUTION) 5, 000 ML ASDIR DIALYSIS Potassium Chloride (KCL 10MEQ/SWFI 50ML) 50 ML A SDIR PRN IV Sodium Chloride (SODIUM CHLORIDE 0.9%) 2,000 ML ASDIR PRN IV Sodium Phosphate (SODIUM PHOSPHATE) 25 MMOL ASDI R PRN IV Sodium Chloride (SODIUM CHLORIDE 0.9%) 250 ML Sodium Phosphate (SODIUM PHOSPHATE) 20 MMOL ASDI R PRN IV Sodium Chloride (SODIUM CHLORIDE 0.9%) 250 ML Sodium Phosphate (SODIUM PHOSPHATE) 15 MMOL ASDI R PRN IV Sodium Chloride (SODIUM CHLORIDE 0.9%) 250 ML Pantoprazole (PROTONIX) 40 MG DAILY@0600 PO Aspirin (ASPIRIN) 81 MG DAILY PO Vasopressin (VASOSTRICT 20 Unit/NS 100ML) 100 ML ASDIR IV (CKD) Amiodarone HCl (CORDARONE) 200 MG TID PO Docusate Sodium (COLACE) 100 MG BID PO Gabapentin (NEURONTIN) 200 MG BID PO (DC) Mupirocin (BACTROBAN 2% 22 GM OINTMENT) 1 APPLIC BID NASAL (DC) Sennosides (Senna Lax 8.6 MG TABLET) 17.2 MG BED TIME PO Ipratropium Kersey (ATROVENT) 500 MCG RTQ4H INH Acetaminophen (TYLENOL) 650 MG Q4H PRN PRN PO Acetaminophen (TYLENOL) 650 MG Q4H PRN PRN RECTA L Calcium Chloride (CALCIUM CHLORIDE) 1 GM ASDIR P RN IV Dextrose/Water (DEXTROSE 10% IN WATER) 125 ML DIR PRN IV (CKD) Dextrose/Water (DEXTROSE 10% IN WATER) 250 ML DIR PRN IV (CKD) Epinephrine (ADRENALIN CHLORIDE) 4 MG ASDIR IV Dextrose/Water (DEXTROSE 5% WATER) 246 ML Glucagon (GLUCAGON) 1 MG ASDIR PRN IM Magnesium Sulfate (MAGNESIUM SULFATE 4GM/SWFI 10 0ML) 100 ML ASDIR PRN IV Magnesium Sulfate (MAGNESIUM SULFATE 2GM/SWFI 50 ML) 50 ML ASDIR PRN IV Magnesium Sulfate/Dextrose (MAGNESIUM SULFATE 1G M/D5W 100ML) 100 ML ASDIR PRN IV Nitroglycerin/Dextrose (NITROGLYCERIN 50,000MCG/ D5W 250ML) 250 ML ASDIR IV Norepinephrine Bitartrate (NOREPINEPHRINE 8 MG/N S 250 ML) 250 ML TITRATE IV Ondansetron HCl (ZOFRAN) 4 MG Q6H PRN PRN IV Oxycodone HCl (ROXICODONE) 5 MG Q4H PRN PRN PO ( DC) Oxycodone HCl (ROXICODONE) 10 MG Q4H PRN PRN PO (DC) Potassium Chloride (KCL 20MEQ/SWFI 100ML) 100 ML ASDIR PRN IV Sodium Bicarbonate (SODIUM BICARBONATE) 50 MEQ A SDIR PRN IV Sodium Chloride (SODIUM CHLORIDE 0.9%) 250 ML Q2 4H IV (DC) Albumin Human (ALBUMINAR-25%) 12.5 GM ASDIR PRN IV Heparin Sodium (Porcine) (HEPARIN SODIUM) 3,000 UNIT ASDIR PRN DIALYSIS Lidocaine HCl (LIDOCAINE HCL/PF) 0.5 ML ASDIR NV N I-DERMAL (CKD) Mannitol (Mannitol 20%) 12.5 GM ASDIR PRN IV Sodium Chloride (SODIUM CHLORIDE 0.9%) 2,000 ML ASDIR PRN IV Tamsulosin HCl (Flomax 0.4 mg) 0.4 MG BEDTIME PO Functional Progress Functional progress: Sit to Stand: Minimal Assistance Pivot Transfer: Minimal Assistance Activities Performed Cmt: PATIENT COMPLETED SIT <>STAND XFERS, DYNAMIC STANDING TASKS, COMMUNITY MOBILITY, AND RETURNS TO BS CHAIR. Assistive Device Used: Staff Support RW Balance: Fair Safety Awareness: Fair Effects of Treatment: Circulation improved Tolerance increased Review OT Plan of Care: Yes Document OT charges: FT/THERAP. ACTIVITY [id number] Physical Exam General appearance: alert, awake, no acute distr ess Psych: alert, oriented x 3 HEENT: anicteric, sclera clear Neck: supple, no JVD Cardiovascular: regular rate rhythm, S1/S2 Respiratory: aerating well, clear bilaterally Abdomen: bowel sounds present, non-distended, so ft Skin: intact, no rash Musculoskeletal - general: Musculoskeletal - general: joints normal, meagan l muscle mass, normal tone 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ALTH: alert, oriented X 3, CNII-XII intact Results Findings/Data: Laboratory Tests: 07/14 07/13 0337 1029 Blood Gas O2 Saturation (90 - 100 %) 95.9 ABG pH (7.35 - 7.45) 7.388 ABG pCO2 (35.0 - 45 mmHg) 31.6 L ABG pO2 (80 - 100.0 mmHg) 80.5 ABG HCO3 (22.0 - 26.0 MMOL/L) 19.0 L ABG Total CO2 20.0 ABG Base Excess (-4.0 - 4.0 MMOL/L) -5.9 L ABG Hematocrit (37.5 - 50.7 %) 26 L ABG Hemoglobin (12.5 - 16.9 G/DL) 9.0 L Sodium (134 - 147 mmol/L) 134 Potassium (3.4 - 5.0 mmol/L) 4.4 Chloride (100 - 108 mmol/L) 104 Ionized Calcium (1.12 - 1.32 MMOL/L) 1.11 L Lactic Acid (0.9 - 1.7 mmol/l) 1.8 H O2 Delivery Device Room Air Chemistry Sodium (134 - 147 mEq/L) 137 Potassium (3.4 - 5.0 mEq/L) 5.1 H Chloride (100 - 108 mEq/L) 104 Carbon Dioxide (21 - 33 mEq/l) 22 Anion Gap (0 - 20) 16 BUN (7 - 18 mg/dL) 48 H Creatinine (0.6 - 1.3 mg/dL) 4.8 H POC Creatinine (0.8 - 1.3 mg/dL) 4.4 H Glomerular Filtr Rate (70 - 80) 11.7 L Glucose (70 - 110 mg/dL) 92 POC Glucose (mg/dL) (70 - 110 MG/DL) 137 H Calcium (8.0 - 10.5 mg/dL) 8.5 Magnesium (1.80 - 2.40 mg/dL) 2.40 Hematology WBC (4.5 - 11.0 x10 3/uL) 13.0 H RBC (4.00 - 5.60 x10 6/uL) 2.82 L Hgb (12.5 - 16.9 g/dL) 8.3 L Hct (37.5 - 50.7 %) 26.2 L MCV (81.0 - 99.0 fL) 92.9 MCH (27.0 - 33.0 pg) 29.4 MCHC (33.0 - 37.0 g/dL) 31.7 L RDW (11.5 - 14.5 %) 16.4 H Plt Count (150 - 400 x10 3/uL) 204 MPV (7.0 - 9.0 fL) 10.8 H Neut % (Auto) (56.0 - 77.0 %) 75.4 Lymph % (Auto) (14.0 - 32.0 %) 5.1 L [place] % (Auto) (4.8 - 9.0 %) 10.1 H Eos % (Auto) (0.3 - 3.7 %) 7.1 H Baso % (Auto) (0.0 - 2.0 %) 0.5 Neut # (Auto) (2.0 - 7.6 x10 3/uL) 9.80 H Lymph # (Auto) (1.0 - 3.8 x10 3/uL) 0.67 L [place] # (Auto) (0.1 - 0.8 x10 3/uL) 1.32 H Eos # (Auto) (0.0 - 0.2 x10 3/uL) 0.92 H Baso # (Auto) (0.0 - 0.2 x10 3/uL) 0.07 Abs Immat Gran (auto) (0.00 - 0.03 x10 3/uL) 0. 24 H Add Manual Diff NO Immature Gran % (0.0 - 2.0 %) 1.8 Nucleated RBC % (0 - 0 %) 0.0 Nucleated RBCs # (Man) (0.0 - 0.1 x10 3/uL) 0.0 0 Diagnosis, Assessment Plan Free Text A P: Non-STEMI Multivessel CAD S/p CABG x5 Physical deconditioning Impaired mobility and gait Postoperative anemia Dyslipidemia Hypertension CLAUDETTE Acute systolic heart failure Hemodynamic issues postop Leukocytosis trending down Plan: Continue PT/OT Out of bed to chair Work on strength, bed mobility, transfers, gait Sternal precaution Increase endurance Fall precautions Monitor p.o. intake and nutrition Strict decubitus precautions Monitor anemia. Nephrology managing renal issues and elevated K+ Still on dopamine drip and has 1 Keshav drain Advance therapies as tolerated IRF consulted. Will require insurance approval Total time was 33 minutes > 50% with patient per forming physical examination, discussing plan of care, goals, therapies, progr ess, medications, labs, IRF. All questions answered Consultants: cardiology, cardiovascular surgery, nephrology Rehab attestation: , Electronically Signed by Magdaleno Washburn on 0 07/15/22 at 1144 RPT #:[id number] END OF REPORT 2022-07-13 20:31:00-00:00 [facility]ACL [facility]) Nephrology Progress Note REPORT#:[id number] REPORT STATUS: Signed DATE:07/13/22 TIME: 2030 PATIENT: SHERRI ARCE UNIT #: [id number] ROOM/BED: [place] [address] : 42 AGE: 81 SEX: M ATTEND: Sam Mcarthur MD ADM AUTHOR: Evelina Plaza MD * ALL edits or amendments must be made on the [email or web address] document * Subjective Chief complaint: has no complaints. Objective General VS/I O: Vital Signs: Date Time Temp Pulse Resp B/P B/P Pulse O2 O2 Flow FiO2 Mean Ox Delivery Rate 07/13 2007 95 Room air 02/05 1600 76 37 122/65 89 94 02/05 1500 70 25 103/58 77 96 02/05 1400 74 22 102/58 77 95 02/05 1300 79 33 109/56 79 99 02/05 1200 82 31 103/56 72 95 02/05 1100 80 28 91/55 68 97 02/05 1000 110/36 53 02/05 1000 79 26 93/53 68 96 02/05 0930 110/38 53 02/05 0930 77 26 91/53 67 91 02/05 0900 103/37 54 02/05 0900 83 22 94/50 67 84 02/05 0830 106/34 50 02/05 0830 80 27 93/54 70 96 02/05 0800 98.3 02/05 0800 113/45 63 02/05 0800 81 26 100/64 74 88 02/05 0741 100 Room air 02/05 0730 124/47 62 02/05 0730 75 26 98/53 71 100 02/05 0700 100/42 55 02/05 0700 75 26 93/52 67 100 02/05 0600 121/46 63 02/05 0600 80 26 109/56 78 99 02/05 0400 98.5 02/05 0345 100 Nasal 5 cannula 02/05 0000 97.6 02/04 2050 100 Nasal 5 cannula 24 hour I O ending at 0700: 07/13 0700 07/12 1900 Intake Total 350 240 Output Total 720 1756 Balance -370 -1516 Intake, Oral 350 240 Output, Chest 140 120 Tube Drainage Output, 1001 Hemodialysis Output, Urine 580 635 Patient 91.1 kg Weight Weight Chair scale Measurement Method PATIENT WEIGHT: Weight (lb): 200 Weight (oz): 13.46 Weight (kg): 91.100 Medications Active Meds + DC'd Last 24 Hrs Midodrine (PROAMATINE) 5 MG 0900,1300,1700 PO Sodium Bicarbonate (SODIUM BICARBONATE) 650 MG B ID PO Ipratropium Kersey (ATROVENT) 500 MCG RTQ2H PRN PRN INH Lactulose (LACTULOSE) 20 GM DAILY PRN PRN PO Cyanocobalamin (Vitamin B-12 500 mcg tab) 500 MC G DAILY PO Ferrous Sulfate (FERROUS SULFATE) 325 MG DAILY P O Dopamine HCl/Dextrose (DOPamine 400MG/D5W 250ML) 250 ML ASDIR IV Bisacodyl (DULCOLAX) 10 MG ONCE PRN RECTAL Atorvastatin Calcium (LIPITOR) 40 MG 2100 PO Clopidogrel Bisulfate (Plavix) 75 MG DAILY PO Polyethylene Glycol (MIRALAX) 17 GM DAILY PO Miscellaneous Information (PHARMACY TO DOSE/EVAL UATE) 1 EACH ASDIR MISC Calcium Chloride (CALCIUM CHLORIDE) 1 GM ASDIR P RN IV Sodium Chloride (SODIUM CHLORIDE 0.9%) 100 ML Calcium Chloride (CALCIUM CHLORIDE) 2 GM ASDIR P RN IV Sodium Chloride (SODIUM CHLORIDE 0.9%) 100 ML Magnesium Sulfate (MAGNESIUM SULFATE 4GM/SWFI 10 0ML) 100 ML ASDIR PRN IV Magnesium Sulfate (MAGNESIUM SULFATE 2GM/SWFI 50 ML) 50 ML ASDIR PRN IV Miscellaneous (PRISMASATE BGK 4/2.5 SOLUTION) 5, 000 ML ASDIR DIALYSIS Potassium Chloride (KCL 10MEQ/SWFI 50ML) 50 ML A SDIR PRN IV Sodium Chloride (SODIUM CHLORIDE 0.9%) 2,000 ML ASDIR PRN IV Sodium Phosphate (SODIUM PHOSPHATE) 25 MMOL ASDI R PRN IV Sodium Chloride (SODIUM CHLORIDE 0.9%) 250 ML Sodium Phosphate (SODIUM PHOSPHATE) 20 MMOL ASDI R PRN IV Sodium Chloride (SODIUM CHLORIDE 0.9%) 250 ML Sodium Phosphate (SODIUM PHOSPHATE) 15 MMOL ASDI R PRN IV Sodium Chloride (SODIUM CHLORIDE 0.9%) 250 ML Pantoprazole (PROTONIX) 40 MG DAILY@0600 PO Aspirin (ASPIRIN) 81 MG DAILY PO Vasopressin (VASOSTRICT 20 Unit/NS 100ML) 100 ML ASDIR IV (CKD) Amiodarone HCl (CORDARONE) 200 MG TID PO Docusate Sodium (COLACE) 100 MG BID PO Gabapentin (NEURONTIN) 200 MG BID PO (DC) Mupirocin (BACTROBAN 2% 22 GM OINTMENT) 1 APPLIC BID NASAL (DC) Sennosides (Senna Lax 8.6 MG TABLET) 17.2 MG BED TIME PO Ipratropium Kersey (ATROVENT) 500 MCG RTQ4H INH Acetaminophen (TYLENOL) 650 MG Q4H PRN PRN PO Acetaminophen (TYLENOL) 650 MG Q4H PRN PRN RECTA L Calcium Chloride (CALCIUM CHLORIDE) 1 GM ASDIR P RN IV Dextrose/Water (DEXTROSE 10% IN WATER) 125 ML DIR PRN IV (CKD) Dextrose/Water (DEXTROSE 10% IN WATER) 250 ML DIR PRN IV (CKD) Epinephrine (ADRENALIN CHLORIDE) 4 MG ASDIR IV Dextrose/Water (DEXTROSE 5% WATER) 246 ML Glucagon (GLUCAGON) 1 MG ASDIR PRN IM Magnesium Sulfate (MAGNESIUM SULFATE 4GM/SWFI 10 0ML) 100 ML ASDIR PRN IV Magnesium Sulfate (MAGNESIUM SULFATE 2GM/SWFI 50 ML) 50 ML ASDIR PRN IV Magnesium Sulfate/Dextrose (MAGNESIUM SULFATE 1G M/D5W 100ML) 100 ML ASDIR PRN IV Nitroglycerin/Dextrose (NITROGLYCERIN 50,000MCG/ D5W 250ML) 250 ML ASDIR IV Norepinephrine Bitartrate (NOREPINEPHRINE 8 MG/N S 250 ML) 250 ML TITRATE IV Ondansetron HCl (ZOFRAN) 4 MG Q6H PRN PRN IV Oxycodone HCl (ROXICODONE) 5 MG Q4H PRN PRN PO ( DC) Oxycodone HCl (ROXICODONE) 10 MG Q4H PRN PRN PO (DC) Potassium Chloride (KCL 20MEQ/SWFI 100ML) 100 ML ASDIR PRN IV Sodium Bicarbonate (SODIUM BICARBONATE) 50 MEQ A SDIR PRN IV Sodium Chloride (SODIUM CHLORIDE 0.9%) 250 ML Q2 4H IV (DC) Albumin Human (ALBUMINAR-25%) 12.5 GM ASDIR PRN IV Heparin Sodium (Porcine) (HEPARIN SODIUM) 3,000 UNIT ASDIR PRN DIALYSIS Lidocaine HCl (LIDOCAINE HCL/PF) 0.5 ML ASDIR NV N I-DERMAL (CKD) Mannitol (Mannitol 20%) 12.5 GM ASDIR PRN IV Sodium Chloride (SODIUM CHLORIDE 0.9%) 2,000 ML ASDIR PRN IV Tamsulosin HCl (Flomax 0.4 mg) 0.4 MG BEDTIME PO Physical Exam General appearance: alert, awake, oriented Head/eyes: atraumatic, normocephalic ENT: moist mucous membranes, normal nose Neck: non-tender, no JVD Extremities: no edema, no swelling 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ALTH: alert, oriented X 3, normal speech Skin: dry, intact Results Findings/Data: Laboratory Tests 07/13 07/13 [id number] Blood Gas Puncture Site Art Line O2 Saturation (90 - 100 %) 95.9 93.8 ABG pH (7.35 - 7.45) 7.388 7.415 ABG pCO2 (35.0 - 45 mmHg) 31.6 L 35.4 ABG pO2 (80 - 100.0 mmHg) 80.5 68.5 L ABG PO2/FiO2 Ratio (mm/Hg) 214.06 ABG HCO3 (22.0 - 26.0 MMOL/L) 19.0 L 22.7 ABG Total CO2 20.0 23.8 ABG Base Excess (-4.0 - 4.0 MMOL/L) -5.9 L -1.9 ABG Hematocrit (37.5 - 50.7 %) 26 L 23 L ABG Hemoglobin (12.5 - 16.9 G/DL) 9.0 L 7.9 L Sodium (134 - 147 mmol/L) 134 132 L Potassium (3.4 - 5.0 mmol/L) 4.4 4.7 Chloride (100 - 108 mmol/L) 104 100 Ionized Calcium (1.12 - 1.32 MMOL/L) 1.11 L 1.1 3 Lactic Acid (0.9 - 1.7 mmol/l) 1.8 H 0.6 L O2 Delivery Device Room Air Cannula FiO2 (%) 32 Laboratory Tests 07/13 07/13 07/13 1029 0304 0300 Chemistry Sodium (134 - 147 mEq/L) 134 Potassium (3.4 - 5.0 mEq/L) 4.7 Chloride (100 - 108 mEq/L) 102 Carbon Dioxide (21 - 33 mEq/l) 25 Anion Gap (0 - 20) 12 BUN (7 - 18 mg/dL) 49 H Creatinine (0.6 - 1.3 mg/dL) 3.9 H POC Creatinine (0.8 - 1.3 mg/dL) 4.4 H 4.0 H Glomerular Filtr Rate (70 - 80) 15.0 L Glucose (70 - 110 mg/dL) 87 POC Glucose (mg/dL) (70 - 110 MG/DL) 137 H 84 Calcium (8.0 - 10.5 mg/dL) 8.0 Magnesium (1.80 - 2.40 mg/dL) 2.29 Laboratory Tests 07/13 0300 Hematology WBC (4.5 - 11.0 x10 3/uL) 13.2 H RBC (4.00 - 5.60 x10 6/uL) 2.61 L Hgb (12.5 - 16.9 g/dL) 7.8 L Hct (37.5 - 50.7 %) 24.2 L MCV (81.0 - 99.0 fL) 92.7 MCH (27.0 - 33.0 pg) 29.9 MCHC (33.0 - 37.0 g/dL) 32.2 L RDW (11.5 - 14.5 %) 16.5 H Plt Count (150 - 400 x10 3/uL) 160 MPV (7.0 - 9.0 fL) 10.9 H Neut % (Auto) (56.0 - 77.0 %) 76.0 Lymph % (Auto) (14.0 - 32.0 %) 7.0 L [place] % (Auto) (4.8 - 9.0 %) 8.8 Eos % (Auto) (0.3 - 3.7 %) 6.4 H Baso % (Auto) (0.0 - 2.0 %) 0.5 Neut # (Auto) (2.0 - 7.6 x10 3/uL) 10.04 H Lymph # (Auto) (1.0 - 3.8 x10 3/uL) 0.93 L [place] # (Auto) (0.1 - 0.8 x10 3/uL) 1.17 H Eos # (Auto) (0.0 - 0.2 x10 3/uL) 0.85 H Baso # (Auto) (0.0 - 0.2 x10 3/uL) 0.07 Abs Immat Gran (auto) (0.00 - 0.03 x10 3/uL) 0. 17 H Add Manual Diff NO Immature Gran % (0.0 - 2.0 %) 1.3 Nucleated RBC % (0 - 0 %) 0.0 Nucleated RBCs # (Man) (0.0 - 0.1 x10 3/uL) 0.0 0 Radiology data: Recent Impressions: RADIOLOGY - XR CHEST 1 V 07/13 0652 Report Impression - Status: SIGNED Entered: 07/13/2022914 IMPRESSION: Left apical pneumothorax measuring approximately 4 cm, approximately 30%. Otherwise, no significant change. Impression By: StevenABKanu - Delmer Palma M.D. Treatment Prophylaxis Treatment Prophylaxis Drain(s)/tube(s): Drain(s)/tube(s): chest Diagnosis, Assessment Plan Free Text A P: Assessment: 1-CLAUDETTE likely from urinary retention. oliguric AK I now post op, from shock! 2- non-STEMI: multivessel disease w main left. 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 Waters catheter is in place. 4-severe bilateral hydronephrosis 5- shock : Cardiogenic 6-hyperlipidemia Plan: - unknown Scr baseline but ultrasound showed MRD . - Ultrasound showed severe bilateral hydronephro sis. Continue Waters catheter. Urology consulted. - s/p CABG X5 on 07/08 - He underwent LHC on 07/03. Started on HD withou t UF on 07/04. - off vasopressors. - s/p HD 2/4. no HD today. 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 Consultants: cardiology, cardiovascular surgery, nephrology Electronically Signed by Evelina Plaza MD on 11/28 at 1054 RPT #:[id number] END OF REPORT 2022-07-13 16:23:00-00:00 [facility] ([facility]) Hospitalist Progress Note REPORT#:[id number] REPORT STATUS: Signed DATE:07/13/22 TIME: 1623 PATIENT: SHERRI ARCE UNIT #: [id number] ROOM/BED: [address] : 42 AGE: 81 SEX: M ATTEND: Sam Mcarthur MD ADM AUTHOR: Sarbjit Mcarthur MD * ALL edits or amendments must be made on the [email or web address] document * Subjective Chief complaint: Status post CABG x5 on 07/09, Doing well today. Am bulated around the unit. HPI: 81 y/o man with PMHx of HTN, Dyslipidemia [facility] with chest pain and found to have a NSTEMI and also acute renal failure. Underwent cardiac c ath yesterday and found to have severe CAD including left main disease. Transfer here f or CABG evaluation. He also underwent HD Thursday and Thursday of this week. HD catheter was place at [facility]. Currently not having any chest pain. Had chest pain with SOB when he presentted to the previous hospital. Objective General VS/I O: Vital Signs: Date Time Temp Pulse Resp B/P B/P Pulse O2 O2 F low FiO2 Mean Ox Delivery Rate 07/13 0830 110/38 53 02/05 0930 77 26 91/53 67 91 02/05 0900 103/37 54 02/05 0900 83 22 94/50 67 84 02/05 0830 106/34 50 02/05 0830 80 27 93/54 70 96 02/05 0800 98.3 02/05 0800 113/45 63 02/05 0800 81 26 100/64 74 88 02/05 0741 100 Room air 02/05 0730 124/47 62 02/05 0730 75 26 98/53 71 100 02/05 0700 100/42 55 02/05 0700 75 26 93/52 67 100 02/05 0600 121/46 63 02/05 0600 80 26 109/56 78 99 02/05 0400 98.5 02/05 0345 100 Nasal 5 cannula /05 0000 97.6 07/12 2049 100 Nasal 5 cannula 07/12 1999 98.1 07/12 1999 Nasal 5 cannula 07/12 1657 70 32 105/41 58 100 07/12 1630 124/52 71 07/12 1630 68 26 92/60 72 100 24 hour I O ending at 0700: 07/13 0700 07/12 1900 Intake Total 350 240 Output Total 720 1756 Balance -370 -1516 Intake, Oral 350 240 Output, Chest 140 120 Tube Drainage Output, 1001 Hemodialysis Output, Urine 580 635 Patient 91.1 kg Weight Weight Chair scale Measurement Method PATIENT WEIGHT: Weight (lb): 200 Weight (oz): 13.46 Weight (kg): 91.100 Physical Exam General appearance: alert, awake, oriented Head/Eyes: atraumatic, EOMI, normal conjunctiva/ sclera, normocephalic, PERRLA ENT: moist mucosal membranes Neck: full range of motion, no bruit/NL carotids , no JVD Cardiovascular: normal heart sounds, regular rat e rhythm Respiratory: aerating well, clear to auscultatio n, symmetric expansion, no distress Abdomen: non-tender, normal bowel sounds , soft, no distention, no guarding, no rebound Extremities: moves all, no cyanosis, no edema Musculoskeletal: normal inspection 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ALTH: alert, oriented X 3, normal speech, n o motor deficits, no sensory deficits Skin: intact, normal color, no rash Psychiatry: normal affect Results Findings/Data: Laboratory Tests 07/13 07/13 1029 0304 Blood Gas Puncture Site Art Line O2 Saturation (90 - 100 %) 95.9 93.8 ABG pH (7.35 - 7.45) 7.388 7.415 ABG pCO2 (35.0 - 45 mmHg) 31.6 L 35.4 ABG pO2 (80 - 100.0 mmHg) 80.5 68.5 L ABG PO2/FiO2 Ratio (mm/Hg) 214.06 ABG HCO3 (22.0 - 26.0 MMOL/L) 19.0 L 22.7 ABG Total CO2 20.0 23.8 ABG Base Excess (-4.0 - 4.0 MMOL/L) -5.9 L -1.9 ABG Hematocrit (37.5 - 50.7 %) 26 L 23 L ABG Hemoglobin (12.5 - 16.9 G/DL) 9.0 L 7.9 L Sodium (134 - 147 mmol/L) 134 132 L Potassium (3.4 - 5.0 mmol/L) 4.4 4.7 Chloride (100 - 108 mmol/L) 104 100 Ionized Calcium (1.12 - 1.32 MMOL/L) 1.11 L 1.1 3 Lactic Acid (0.9 - 1.7 mmol/l) 1.8 H 0.6 L O2 Delivery Device Room Air Cannula FiO2 (%) 32 Laboratory Tests 07/13 07/13 07/13 1029 0304 0300 Chemistry Sodium (134 - 147 mEq/L) 134 Potassium (3.4 - 5.0 mEq/L) 4.7 Chloride (100 - 108 mEq/L) 102 Carbon Dioxide (21 - 33 mEq/l) 25 Anion Gap (0 - 20) 12 BUN (7 - 18 mg/dL) 49 H Creatinine (0.6 - 1.3 mg/dL) 3.9 H POC Creatinine (0.8 - 1.3 mg/dL) 4.4 H 4.0 H Glomerular Filtr Rate (70 - 80) 15.0 L Glucose (70 - 110 mg/dL) 87 POC Glucose (mg/dL) (70 - 110 MG/DL) 137 H 84 Calcium (8.0 - 10.5 mg/dL) 8.0 Magnesium (1.80 - 2.40 mg/dL) 2.29 Laboratory Tests 07/13 0300 Hematology WBC (4.5 - 11.0 x10 3/uL) 13.2 H RBC (4.00 - 5.60 x10 6/uL) 2.61 L Hgb (12.5 - 16.9 g/dL) 7.8 L Hct (37.5 - 50.7 %) 24.2 L MCV (81.0 - 99.0 fL) 92.7 MCH (27.0 - 33.0 pg) 29.9 MCHC (33.0 - 37.0 g/dL) 32.2 L RDW (11.5 - 14.5 %) 16.5 H Plt Count (150 - 400 x10 3/uL) 160 MPV (7.0 - 9.0 fL) 10.9 H Neut % (Auto) (56.0 - 77.0 %) 76.0 Lymph % (Auto) (14.0 - 32.0 %) 7.0 L [place] % (Auto) (4.8 - 9.0 %) 8.8 Eos % (Auto) (0.3 - 3.7 %) 6.4 H Baso % (Auto) (0.0 - 2.0 %) 0.5 Neut # (Auto) (2.0 - 7.6 x10 3/uL) 10.04 H Lymph # (Auto) (1.0 - 3.8 x10 3/uL) 0.93 L [place] # (Auto) (0.1 - 0.8 x10 3/uL) 1.17 H Eos # (Auto) (0.0 - 0.2 x10 3/uL) 0.85 H Baso # (Auto) (0.0 - 0.2 x10 3/uL) 0.07 Abs Immat Gran (auto) (0.00 - 0.03 x10 3/uL) 0. 17 H Add Manual Diff NO Immature Gran % (0.0 - 2.0 %) 1.3 Nucleated RBC % (0 - 0 %) 0.0 Nucleated RBCs # (Man) (0.0 - 0.1 x10 3/uL) 0.0 0 Radiology data: Recent Impressions: RADIOLOGY - XR CHEST 1 V 07/13 0652 Report Impression - Status: SIGNED Entered: 07/13/2022 0915 IMPRESSION: Left apical pneumothorax measuring approximately 4 cm, approximately 30%. Otherwise, no significant change. Impression By: StevenABKanu - Delmer Palma M.D. Treatment Prophylaxis Treatment Prophylaxis Drain(s)/tube(s): Drain(s)/tube(s): chest Diagnosis, Assessment Plan Consultants: cardiology, cardiovascular surgery, nephrology Free Text DxA P Notes Free text DxA P notes: Assessment and plans: CAD (coronary artery disease) patient presented with NSTEMI and found to hve severe CAD. Cardiac cath shows: Left Main - Distal 70% LAD - Proximal 80% with another 60% and 70% les sions Cir - Proximal 80%,mid 80-90%, Distal 70% and O M 60% RCA - large dominant with proximal 40%, Mid 60 %. Cardiology and CV surgeon consulted echo: ef 30-34%, mod hypokinesis of entire myoc ardium, grade 1 diastolic dysfunction Carotid Dopplers negative PFTs PT/OT s/p CABG X5 on 07/08 Patient on ASA, plavix, BB and Statin on amiodarone Beta-tomas as tolerated for low BP, Acute systolic heart failure Echocardiac with estimated LVEF of 30 to 34% wi th grade 1 diastolic dysfunction -s/p Lasix 20 mg twice daily 07/05 -on metoprolol 12.5 mg bid on hold now, BP low -no ACEI/ spironolactione for CLAUDETTE -Strict I's and O's, daily weights -Start GDMT prior to discharge CLAUDETTE (acute kidney injury) No prior Hx of renal disease. hx of BPH and casimiro ated with Fosamax w/o improvement nd continue to h ave difficulty urinating. On admission was found to be on acute renal filaure and had received HD tw ice prior to arrival here ( thursday and thursday). Creatinine this am was 7.4, BUN 68 * Probably due to obstructive uropathy * waters already in place * Nephrology consuled for HD On daily hemodialysis as per nephrology Anemia: -Hemoglobin dropped to 6.5 s/p CABG 2 PRBC BT ordered 07/09 Monitor H H Leukocytosis: -Afebrile Monitor WBC count HTN (hypertension) patient on metoprolol 12.5 mg BID, will adjust as needed On labetalol/hydralazine as needed Dyslipidemia on Lipitor 40mg po daliy. BPH (benign prostatic hyperplasia) Started on Flomax at the previous hospital, thais l continue with it. Waters catheter in place, continue Waters cathete r as per nephrology 07/05 Goiter Hx of Goiter and surgical resection. TSH 3.33, within normal limits. Patient is not on Thyroid medication. anemia of chronic kidney disease Hemoglobin 8.3, monitor Hypokalemia resolved UTI continue Rocephin for empiric treatment pend ing results of urine culture No growth for 48 hours DVT prophylaxis: Heparin 5000 units every 8 hour s Diet: Cardiac diet CODE STATUS: Full code Disposition: Status post CABG x5 on 07/09, hemodia lysis as per nephrology. Worked with PT in his room, on 2 L oxygen via na cj cannula. PT/OT on board. Rehab consulted. Continue CVICU care. Quality: Gen Med Crit Care VTE Prophylaxis VTE prophylaxis initiated: yes Current Medications Current medication review: I attest that the foregoing medication list in t he medical record is true, accurate, and complete to the best of my knowled ge. Advanced Care Plan 65 or Older Discussed with: patient Discussion included: living will (none), power of employment law attorney (none), code status ( full code) at 1625 RPT #:[id number] END OF REPORT 2022-07-13 14:48:00-00:00 [facility] ([facility]) Critical Care Progress Note REPORT#:[id number] REPORT STATUS: Signed DATE:07/13/22 TIME: 1448 PATIENT: SHERRI ARCE UNIT #: [id number] ROOM/BED: [place] [address] : 42 AGE: 81 SEX: M ATTEND: Sam Mcarthur MD ADM AUTHOR: Edwardo Flannery MD * ALL edits or amendments must be made on the [email or web address] document * Subjective Chief complaint: CABG HPI: This is 81 years old male with medical history s ignificant for HTN and dyslipidemia [facility] with chest pain and found to have a NSTEMI and also acute r enal failure. He underwent cardiac cath and was found to have sever e CAD including left main disease with EF of 30 to 35% and ischemic cardiomyopathy. Transfer here for CABG evaluation. CV surgery were consulted an d the patient earlier today underwent CABG x 5 (MISTRY -LAD, SVG-Ladonna, SVG-OM1< SVG-OM3, SVG-PDA) and AL AA. His intraoperative course was without significant occurrence. The patient was brought to CVICU intubated and ventilated on milrinone drip, norepinephrine drip, epinephrine drip and vasopressin drip. His initial ABG showed metabolic acidosi s and he received 2 A of sodium bicarb and 1 g of calcium. The patient started to wake up later in the even ing but he looked weak, so he was reversed with neostigmine and glycopyrrolate . His motor strength improved significantly after that and his spontaneous lenard athing trial was good on the following ABG showed some metabolic acid osis. The patient will be extubated to a BiPAP as his CO2 was high on the ABG. Comments: Out of bed in the chair HD yesterday, removed 1 L Urine output 550 cc Chest tube output 140 cc Objective General VS/I O Last Documented: Result Date Time B/P 110/38 07/13 929 B/P Mean 53 07/13 929 Pulse Ox 91 07/13 929 Pulse 77 07/13 929 Resp 26 07/13 929 Temp 98.3 07/13 08 O2 Delivery Room air 07/13 07 O2 Flow Rate 5 07/13 0345 FiO2 50 07/08 191 24 hour I O ending at 0700: 07/13 0700 07/12 1900 Intake Total 350 240 Output Total 720 1756 Balance -370 -1516 Intake, Oral 350 240 Output, Chest 140 120 Tube Drainage Output, 1001 Hemodialysis Output, Urine 580 635 Patient 91.1 kg Weight Weight Chair scale Measurement Method PATIENT WEIGHT: Weight (lb): 200 Weight (oz): 13.46 Weight (kg): 91.100 Medications: Active Meds + DC'd Last 24 Hrs Albumin Human (ALBUMINAR 25%) 100 ML ONCE ONE IV (DC) Midodrine (PROAMATINE) 5 MG ONCE ONE PO (DC) Midodrine (PROAMATINE) 5 MG 0900,1300,1700 PO Sodium Bicarbonate (SODIUM BICARBONATE) 650 MG B ID PO Ipratropium Kersey (ATROVENT) 500 MCG RTQ2H PRN PRN INH Lactulose (LACTULOSE) 20 GM DAILY PRN PRN PO Cyanocobalamin (Vitamin B-12 500 mcg tab) 500 MC G DAILY PO Ferrous Sulfate (FERROUS SULFATE) 325 MG DAILY P O Dopamine HCl/Dextrose (DOPamine 400MG/D5W 250ML) 250 ML ASDIR IV Bisacodyl (DULCOLAX) 10 MG ONCE PRN RECTAL Atorvastatin Calcium (LIPITOR) 40 MG 2100 PO Clopidogrel Bisulfate (Plavix) 75 MG DAILY PO Polyethylene Glycol (MIRALAX) 17 GM DAILY PO Miscellaneous Information (PHARMACY TO DOSE/EVAL UATE) 1 EACH ASDIR MISC Calcium Chloride (CALCIUM CHLORIDE) 1 GM ASDIR P RN IV Sodium Chloride (SODIUM CHLORIDE 0.9%) 100 ML Calcium Chloride (CALCIUM CHLORIDE) 2 GM ASDIR P RN IV Sodium Chloride (SODIUM CHLORIDE 0.9%) 100 ML Magnesium Sulfate (MAGNESIUM SULFATE 4GM/SWFI 10 0ML) 100 ML ASDIR PRN IV Magnesium Sulfate (MAGNESIUM SULFATE 2GM/SWFI 50 ML) 50 ML ASDIR PRN IV Miscellaneous (PRISMASATE BGK 4/2.5 SOLUTION) 5, 000 ML ASDIR DIALYSIS Potassium Chloride (KCL 10MEQ/SWFI 50ML) 50 ML A SDIR PRN IV Sodium Chloride (SODIUM CHLORIDE 0.9%) 2,000 ML ASDIR PRN IV Sodium Phosphate (SODIUM PHOSPHATE) 25 MMOL ASDI R PRN IV Sodium Chloride (SODIUM CHLORIDE 0.9%) 250 ML Sodium Phosphate (SODIUM PHOSPHATE) 20 MMOL ASDI R PRN IV Sodium Chloride (SODIUM CHLORIDE 0.9%) 250 ML Sodium Phosphate (SODIUM PHOSPHATE) 15 MMOL ASDI R PRN IV Sodium Chloride (SODIUM CHLORIDE 0.9%) 250 ML Pantoprazole (PROTONIX) 40 MG DAILY@0600 PO Aspirin (ASPIRIN) 81 MG DAILY PO Vasopressin (VASOSTRICT 20 Unit/NS 100ML) 100 ML ASDIR IV (CKD) Amiodarone HCl (CORDARONE) 200 MG TID PO Docusate Sodium (COLACE) 100 MG BID PO Gabapentin (NEURONTIN) 200 MG BID PO (DC) Mupirocin (BACTROBAN 2% 22 GM OINTMENT) 1 APPLIC BID NASAL (DC) Sennosides (Senna Lax 8.6 MG TABLET) 17.2 MG BED TIME PO Ipratropium Kersey (ATROVENT) 500 MCG RTQ4H INH Acetaminophen (TYLENOL) 650 MG Q4H PRN PRN PO Acetaminophen (TYLENOL) 650 MG Q4H PRN PRN RECTA L Calcium Chloride (CALCIUM CHLORIDE) 1 GM ASDIR P RN IV Dextrose/Water (DEXTROSE 10% IN WATER) 125 ML DIR PRN IV (CKD) Dextrose/Water (DEXTROSE 10% IN WATER) 250 ML DIR PRN IV (CKD) Epinephrine (ADRENALIN CHLORIDE) 4 MG ASDIR IV Dextrose/Water (DEXTROSE 5% WATER) 246 ML Glucagon (GLUCAGON) 1 MG ASDIR PRN IM Magnesium Sulfate (MAGNESIUM SULFATE 4GM/SWFI 10 0ML) 100 ML ASDIR PRN IV Magnesium Sulfate (MAGNESIUM SULFATE 2GM/SWFI 50 ML) 50 ML ASDIR PRN IV Magnesium Sulfate/Dextrose (MAGNESIUM SULFATE 1G M/D5W 100ML) 100 ML ASDIR PRN IV Nitroglycerin/Dextrose (NITROGLYCERIN 50,000MCG/ D5W 250ML) 250 ML ASDIR IV Norepinephrine Bitartrate (NOREPINEPHRINE 8 MG/N S 250 ML) 250 ML TITRATE IV Ondansetron HCl (ZOFRAN) 4 MG Q6H PRN PRN IV Oxycodone HCl (ROXICODONE) 5 MG Q4H PRN PRN PO Oxycodone HCl (ROXICODONE) 10 MG Q4H PRN PRN PO Potassium Chloride (KCL 20MEQ/SWFI 100ML) 100 ML ASDIR PRN IV Sodium Bicarbonate (SODIUM BICARBONATE) 50 MEQ A SDIR PRN IV Sodium Chloride (SODIUM CHLORIDE 0.9%) 250 ML Q2 4H IV Albumin Human (ALBUMINAR-25%) 12.5 GM ASDIR PRN IV Heparin Sodium (Porcine) (HEPARIN SODIUM) 3,000 UNIT ASDIR PRN DIALYSIS Lidocaine HCl (LIDOCAINE HCL/PF) 0.5 ML ASDIR NV N I-DERMAL (CKD) Mannitol (Mannitol 20%) 12.5 GM ASDIR PRN IV Sodium Chloride (SODIUM CHLORIDE 0.9%) 2,000 ML ASDIR PRN IV Tamsulosin HCl (Flomax 0.4 mg) 0.4 MG BEDTIME PO Results Radiology data Recent Impressions: ULTRASOUND - US RETRO LTD 07/12 1624 Report Impression - Status: SIGNED Entered: 07/13/2022 0651 IMPRESSION: Moderate left hydronephrosis, appears slightly i mproved compared to prior exam. Findings suggestive of medical renal disease. Impression By: Toro Palma M.D. RADIOLOGY - XR CHEST 1 V 07/13 0652 Report Impression - Status: SIGNED Entered: 07/13/2022 0915 IMPRESSION: Left apical pneumothorax measuring approximately 4 cm, approximately 30%. Otherwise, no significant change. Impression By: Toro Palma M.D. Free Text Obj Notes Free Text Obj Notes: General appearance: Elderly male in no acute dis tress, interactive and conversational HEENT: atraumatic, normocephalic, moist mucosal membranes Neck: full range of motion, supple/no meningismu s Cardiovascular: S1-S2 regular rate and rhythm Respiratory: symmetric expansion, no acute respi ratory distress Abdomen: soft, non-tender, no distention, no gua rding Genitourinary: waters with clear urine Extremities: pedal pulses palpable, moves all, n o cyanosis, mild LE edema Musculoskeletal: normal inspection, no muscle sp asm 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ALTH: alert and oriented x3, CNII-XII gross ly intact, no motor deficits Skin: dry, intact and clean surgery dressing Diagnosis, Assessment Plan Problem list/A P: 1. CLAUDETTE (acute kidney injury) 2. CAD (coronary artery disease) 3. Goiter 4. BPH (benign prostatic hyperplasia) 5. Dyslipidemia 6. HTN (hypertension) Free text A P: 73-year-old male with Acute pulmonary insufficiency following thoracic surgery Status post CABG x 5 (MISTRY-LAD, SVG-Ladonna, SVG-OM1 < SVG-OM3, SVG-PDA) and ALAA Acute blood loss anemia Hypotension Ischemic cardiomyopathy, EF 30 to 34% Multivessel CAD CLAUDETTE on hemodialysis Continue mechanical ventilation, vent settings r eviewed Titrate FiO2 to keep saturation more than 90%. Spontaneous breathing trial as soon as possible Wean to extubate Follow ABGs and CXRs ABG shows metabolic acidosis. Patient re ceived 2 A of sodium bicarb and 1 g of calcium Keep off sedation Judicious pain control Milrinone drip 0.25 Epinephrine drip Norepinephrine drip Vasopressin drip Titrate drips to keep MAP more than 65 Wean milrinone off first per CV surgery Minimize fluids per CV surgery Aspirin and Plavix Atorvastatin Metoprolol Follow lactate level Monitor chest tube output Hemodialysis per nephrology Monitor urine output and kidney function Monitor and replete electrolytes Perioperative antibiotics Cardiac diet with bowel regimen once extubated BG control with insulin gtt per protocol PT/OT VTE prophylaxis. Stress ulcer prophylaxis. Discussed with CV surgery, anesthesia and ICU te am Critical care time 85 minutes 07/09 Appears neuro intact, multimodal pain control, m inimize narcotic use, no CO2 narcosis Extubated successfully, sats well on NC, wean O2 , monitor for hypercapnia, encourage I-S, obtain serial ABGs, CXR reviewed HD unstable, weaning vasopre ssors and inotrope, monitor HD parameters, low CVP, lactic acidosis with uptrending lactate, gentle volume resuscitation Oliguric CLAUDETTE, plan for CRRT per renal, h yperkalemia treated, obtain serial lab PO challenge, bowel regimen, serial abdominal ex am, monitor LFTs Leukocytosis postop, likely reactive, trend WBC, s/p antibiotic course for UTI , periop antibiotics Hgb trending down, no eviden ce of active bleed, monitor CTs output, RBC given HD instability Blood glucose control with insulin drip per prot ocol Encourage PT/OT and activity as tolerated DVT and GI prophylaxis with DAPT and PPI 2/2 Appears neuro intact, multimodal pain control, m inimize narcotic use sats well on NC, wean O2, encourage I-S, ABG and CXR reviewed HD fairly stable, on minimal vasopressor support , lactic acidosis cleared s/p resuscitation Oliguric CLAUDETTE, tolerated CRRT, holding off per re nal, monitor UOP and electrolytes closely Oral diet as tolerated, bowel regimen, monitor L FTs Leukocytosis postop, trend WBC, treated for UTI preop Hgb responded to PRBC, no evidence of active ble ed, minimal CTs output Blood glucose control, transitioned insulin drip to SSI Encourage PT/OT and out of bed as tolerated DVT and GI prophylaxis with DAPT and PPI 2/3 Remains neuro intact, pain appears well controll ed Sats well on NC, wean O2, encourage I-S, ABG and CXR reviewed HD unstable, remains on minimal vasopressor supp ort, attempt to wean, start midodrine Oliguric CLAUDETTE, off CRRT per r enal, minimal UOP, started renal dose dopamine drip Tolerating oral diet, continue bowel regimen, LF Ts normalized Leukocytosis postop, continue to trend WBC, keira georgi for UTI preop Hgb stable s/p PRBC, no evidence of active bleed , monitor pCT output Blood glucose control with sliding scale insulin Encourage PT/OT and out of bed as tolerated, CM for dispo plan DVT and GI prophylaxis with DAPT and PPI 2/4 Remains neuro intact, pain appears well controll ed Sats well on NC, wean O2, encourage I-S, ABG and CXR reviewed HD unstable, weaning vasopressors, increase mido drine dose, remains in SR CLAUDETTE, likely postrenal, improved UOP, HD today pe r renal, hyperkalemia treated Tolerating oral diet, has bowel movement and bow el regimen, LFTs normalized Leukocytosis, WBC trending d own, currently off antibiotics s/p treatment for UTI Hgb remains stable s/p PRBC, no evidence of acti ve bleed, minimal CT output Blood glucose control with sliding scale insulin Encourage PT/OT and out of bed as tolerated, CM for dispo plan, IPR consulted DVT and GI prophylaxis with DAPT and PPI 2/5 Remains neuro intact, pain appears well controll ed Sats well, wean O2, encourage I-S, ABG and CXR r eviewed, has left PTX HD stable off vasopressors, increased midodrine dose CLAUDETTE, likely postrenal, makin g urine, HD per renal, renal US with hydronephrosis Tolerating oral diet, has bowel movement and bow el regimen Leukocytosis, WBC trending down, monitor off antibiotics s/p treatment for UTI Hgb remains stable s/p PRBC, no evidence of acti ve bleed, keep CT to suction Blood glucose control with sliding scale insulin Tolerating PT/OT, CM for dispo plan, IPR on boar d DVT and GI prophylaxis with DAPT and PPI Consultants: cardiology, cardiovascular surgery, nephrology Plan discussed with: patient, consultants, nurse , interdisc care team Critical care time: Minutes: 35 Electronically Signed by Edwardo Flannery MD on 12/28 at 0247 RPT #:[id number] END OF REPORT 2022-07-13 08:51:00-00:00 [facility] Progress Note REPORT#:[id number] REPORT STATUS: Signed DATE:07/13/22 TIME: 850 PATIENT: SHERRI ARCE UNIT #: [id number] ROOM/BED: [place] [address] : 42 AGE: 81 SEX: M ATTEND: Sam Mcarthur MD ADM AUTHOR: Carolyn Penny NP * ALL edits or amendments must be made on the [employer]/computer document * Subjective Chief complaint: Doing okay. Patient reports: No: chest pain, palpitations, shortness of breat h. Nursing reports: No: complaints. Comments: Patient sitting in chair, on 2 L nasal cannula. He is sleeping without distress note. Telemetry shows normal sinus rhythm. Chest tube x1. Bilateral lower leg edema. Objective General VS/I O: 24 hour I O ending at 0700: 02/04 1900 02/05 0700 Intake Total 240 350 Output Total 1756 720 Balance -1516 -370 Intake, Oral 240 350 Output, Chest 120 140 Tube Drainage Output, 1001 Hemodialysis Output, Urine 635 580 Patient 91.1 kg Weight Weight Chair scale Measurement Method Vital Signs: Date Time Temp Pulse Resp B/P B/P Pulse O2 O2 F low FiO2 Mean Ox Delivery Rate 02/05 0930 110/38 53 02/05 0930 77 26 91/53 67 91 02/05 0900 103/37 54 02/05 0900 83 22 94/50 67 84 02/05 0830 106/34 50 02/05 0830 80 27 93/54 70 96 02/05 0800 98.3 02/05 0800 113/45 63 02/05 0800 81 26 100/64 74 88 02/05 0741 100 Room air 02/05 0730 124/47 62 02/05 0730 75 26 98/53 71 100 02/05 0700 100/42 55 02/05 0700 75 26 93/52 67 100 02/05 0600 121/46 63 02/05 0600 80 26 109/56 78 99 02/05 0400 98.5 02/05 0345 100 Nasal 5 cannula 02/05 0000 97.6 02/04 2050 100 Nasal 5 cannula 02/04 1999 98.1 02/04 1999 Nasal 5 cannula 02/04 1657 70 32 105/41 58 100 02/04 1630 124/52 71 02/04 1630 68 26 92/60 72 100 02/04 1600 117/47 64 02/04 1600 72 30 96/52 67 99 02/04 1538 97 High flow 7 nasal cannula 02/04 1530 115/48 64 02/04 1530 72 30 99/55 72 99 02/04 1501 105/43 58 02/04 1501 74 32 93/56 69 95 02/04 1500 74 37 103/44 60 91 02/04 1430 106/49 64 02/04 1430 74 32 103/57 75 94 02/04 1400 101/50 66 02/04 1400 76 24 108/62 81 84 02/04 1354 31/18 24 02/04 1354 78 30 120/60 84 95 02/04 1337 77 38 110/59 79 02/04 1334 78 28 108/57 76 02/ 1330 78 30 115/59 82 02/ 1329 78 32 111/55 77 82 02/ 1327 78 30 96/55 75 95 02/ 1320 75 29 102/57 76 98 02/04 1300 137/53 73 02/ 1300 75 28 115/59 81 100 PATIENT WEIGHT: Weight (lb): 200 Weight (oz): 13.46 Weight (kg): 91.100 Medications: Active Meds + DC'd Last 24 Hrs Albumin Human (ALBUMINAR 25%) 100 ML ONCE ONE IV (DC) Midodrine (PROAMATINE) 5 MG ONCE ONE PO (DC) Midodrine (PROAMATINE) 5 MG 0900,1300,1700 PO Sodium Bicarbonate (SODIUM BICARBONATE) 650 MG B ID PO Ipratropium Kersey (ATROVENT) 500 MCG RTQ2H PRN PRN INH Midodrine (PROAMATINE) 2.5 MG 0900,1300,1700 PO (DC) Lactulose (LACTULOSE) 20 GM DAILY PRN PRN PO Cyanocobalamin (Vitamin B-12 500 mcg tab) 500 MC G DAILY PO Ferrous Sulfate (FERROUS SULFATE) 325 MG DAILY P O Dopamine HCl/Dextrose (DOPamine 400MG/D5W 250ML) 250 ML ASDIR IV Bisacodyl (DULCOLAX) 10 MG ONCE PRN RECTAL Atorvastatin Calcium (LIPITOR) 40 MG 2100 PO Clopidogrel Bisulfate (Plavix) 75 MG DAILY PO Polyethylene Glycol (MIRALAX) 17 GM DAILY PO Miscellaneous Information (PHARMACY TO DOSE/EVAL UATE) 1 EACH ASDIR MISC Calcium Chloride (CALCIUM CHLORIDE) 1 GM ASDIR P RN IV Sodium Chloride (SODIUM CHLORIDE 0.9%) 100 ML Calcium Chloride (CALCIUM CHLORIDE) 2 GM ASDIR P RN IV Sodium Chloride (SODIUM CHLORIDE 0.9%) 100 ML Magnesium Sulfate (MAGNESIUM SULFATE 4GM/SWFI 10 0ML) 100 ML ASDIR PRN IV Magnesium Sulfate (MAGNESIUM SULFATE 2GM/SWFI 50 ML) 50 ML ASDIR PRN IV Miscellaneous (PRISMASATE BGK 4/2.5 SOLUTION) 5, 000 ML ASDIR DIALYSIS Potassium Chloride (KCL 10MEQ/SWFI 50ML) 50 ML A SDIR PRN IV Sodium Chloride (SODIUM CHLORIDE 0.9%) 2,000 ML ASDIR PRN IV Sodium Phosphate (SODIUM PHOSPHATE) 25 MMOL ASDI R PRN IV Sodium Chloride (SODIUM CHLORIDE 0.9%) 250 ML Sodium Phosphate (SODIUM PHOSPHATE) 20 MMOL ASDI R PRN IV Sodium Chloride (SODIUM CHLORIDE 0.9%) 250 ML Sodium Phosphate (SODIUM PHOSPHATE) 15 MMOL ASDI R PRN IV Sodium Chloride (SODIUM CHLORIDE 0.9%) 250 ML Pantoprazole (PROTONIX) 40 MG DAILY@0600 PO Aspirin (ASPIRIN) 81 MG DAILY PO Vasopressin (VASOSTRICT 20 Unit/NS 100ML) 100 ML ASDIR IV (CKD) Amiodarone HCl (CORDARONE) 200 MG TID PO Docusate Sodium (COLACE) 100 MG BID PO Gabapentin (NEURONTIN) 200 MG BID PO Metoprolol Tartrate (LOPRESSOR) 12.5 MG Q12HR PO (DC) Mupirocin (BACTROBAN 2% 22 GM OINTMENT) 1 APPLIC BID NASAL Sennosides (Senna Lax 8.6 MG TABLET) 17.2 MG BED TIME PO Ipratropium Kersey (ATROVENT) 500 MCG RTQ4H INH Acetaminophen (TYLENOL) 650 MG Q4H PRN PRN PO Acetaminophen (TYLENOL) 650 MG Q4H PRN PRN RECTA L Calcium Chloride (CALCIUM CHLORIDE) 1 GM ASDIR P RN IV Dextrose/Water (DEXTROSE 10% IN WATER) 125 ML DIR PRN IV (CKD) Dextrose/Water (DEXTROSE 10% IN WATER) 250 ML DIR PRN IV (CKD) Epinephrine (ADRENALIN CHLORIDE) 4 MG ASDIR IV Dextrose/Water (DEXTROSE 5% WATER) 246 ML Glucagon (GLUCAGON) 1 MG ASDIR PRN IM Magnesium Sulfate (MAGNESIUM SULFATE 4GM/SWFI 10 0ML) 100 ML ASDIR PRN IV Magnesium Sulfate (MAGNESIUM SULFATE 2GM/SWFI 50 ML) 50 ML ASDIR PRN IV Magnesium Sulfate/Dextrose (MAGNESIUM SULFATE 1G M/D5W 100ML) 100 ML ASDIR PRN IV Nitroglycerin/Dextrose (NITROGLYCERIN 50,000MCG/ D5W 250ML) 250 ML ASDIR IV Norepinephrine Bitartrate (NOREPINEPHRINE 8 MG/N S 250 ML) 250 ML TITRATE IV Ondansetron HCl (ZOFRAN) 4 MG Q6H PRN PRN IV Oxycodone HCl (ROXICODONE) 5 MG Q4H PRN PRN PO Oxycodone HCl (ROXICODONE) 10 MG Q4H PRN PRN PO Potassium Chloride (KCL 20MEQ/SWFI 100ML) 100 ML ASDIR PRN IV Sodium Bicarbonate (SODIUM BICARBONATE) 50 MEQ A SDIR PRN IV Sodium Chloride (SODIUM CHLORIDE 0.9%) 250 ML Q2 4H IV Albumin Human (ALBUMINAR-25%) 12.5 GM ASDIR PRN IV Heparin Sodium (Porcine) (HEPARIN SODIUM) 3,000 UNIT ASDIR PRN DIALYSIS Lidocaine HCl (LIDOCAINE HCL/PF) 0.5 ML ASDIR NV N I-DERMAL (CKD) Mannitol (Mannitol 20%) 12.5 GM ASDIR PRN IV Sodium Chloride (SODIUM CHLORIDE 0.9%) 2,000 ML ASDIR PRN IV Tamsulosin HCl (Flomax 0.4 mg) 0.4 MG BEDTIME PO Status post: 07/08/22 CABG x 5 (MISTRY-LAD, SVG-Ladonna, SVG-OM1< SV G-OM3, SVG-PDA) ALAA Physical Exam General appearance: alert, awake, no acute distr ess, mental status normal, no respiratory distress Head/Eyes: atraumatic ENT: moist mucosal membranes Neck: no JVD Cardiovascular: CV assessment: regular rate and rhythm, no murm ur Respiratory: decreased breath sounds, no distres s Abdomen: soft, non-tender, normal bowel sounds, no distention, no guarding Upper extremity: UE assessment: normal temperature, no edema Lower extremity: LE assessment: edema (RLE trace), normal temper ature, no edema Musculoskeletal: normal inspection 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ALTH: alert, oriented X 3, normal speech Skin: dry Psychiatry: normal affect Results Findings/Data: Laboratory Tests 07/13 07/13 0304 1029 Blood Gas Puncture Site Art Line O2 Saturation (90 - 100 %) 93.8 95.9 ABG pH (7.35 - 7.45) 7.415 7.388 ABG pCO2 (35.0 - 45 mmHg) 35.4 31.6 L ABG pO2 (80 - 100.0 mmHg) 68.5 L 80.5 ABG PO2/FiO2 Ratio (mm/Hg) 214.06 ABG HCO3 (22.0 - 26.0 MMOL/L) 22.7 19.0 L ABG Total CO2 23.8 20.0 ABG Base Excess (-4.0 - 4.0 MMOL/L) -1.9 -5.9 L ABG Hematocrit (37.5 - 50.7 %) 23 L 26 L ABG Hemoglobin (12.5 - 16.9 G/DL) 7.9 L 9.0 L Sodium (134 - 147 mmol/L) 132 L 134 Potassium (3.4 - 5.0 mmol/L) 4.7 4.4 Chloride (100 - 108 mmol/L) 100 104 Ionized Calcium (1.12 - 1.32 MMOL/L) 1.13 1.11 L Lactic Acid (0.9 - 1.7 mmol/l) 0.6 L 1.8 H O2 Delivery Device Cannula Room Air FiO2 (%) 32 Laboratory Tests 07/13 0304 1029 Chemistry Sodium (134 - 147 mEq/L) 134 Potassium (3.4 - 5.0 mEq/L) 4.7 Chloride (100 - 108 mEq/L) 102 Carbon Dioxide (21 - 33 mEq/l) 25 Anion Gap (0 - 20) 12 BUN (7 - 18 mg/dL) 49 H Creatinine (0.6 - 1.3 mg/dL) 3.9 H POC Creatinine (0.8 - 1.3 mg/dL) 4.0 H 4.4 H Glomerular Filtr Rate (70 - 80) 15.0 L Glucose (70 - 110 mg/dL) 87 POC Glucose (mg/dL) (70 - 110 MG/DL) 84 137 H Calcium (8.0 - 10.5 mg/dL) 8.0 Magnesium (1.80 - 2.40 mg/dL) 2.29 Laboratory Tests 07/13 0300 Hematology WBC (4.5 - 11.0 x10 3/uL) 13.2 H RBC (4.00 - 5.60 x10 6/uL) 2.61 L Hgb (12.5 - 16.9 g/dL) 7.8 L Hct (37.5 - 50.7 %) 24.2 L MCV (81.0 - 99.0 fL) 92.7 MCH (27.0 - 33.0 pg) 29.9 MCHC (33.0 - 37.0 g/dL) 32.2 L RDW (11.5 - 14.5 %) 16.5 H Plt Count (150 - 400 x10 3/uL) 160 MPV (7.0 - 9.0 fL) 10.9 H Neut % (Auto) (56.0 - 77.0 %) 76.0 Lymph % (Auto) (14.0 - 32.0 %) 7.0 L [place] % (Auto) (4.8 - 9.0 %) 8.8 Eos % (Auto) (0.3 - 3.7 %) 6.4 H Baso % (Auto) (0.0 - 2.0 %) 0.5 Neut # (Auto) (2.0 - 7.6 x10 3/uL) 10.04 H Lymph # (Auto) (1.0 - 3.8 x10 3/uL) 0.93 L [place] # (Auto) (0.1 - 0.8 x10 3/uL) 1.17 H Eos # (Auto) (0.0 - 0.2 x10 3/uL) 0.85 H Baso # (Auto) (0.0 - 0.2 x10 3/uL) 0.07 Abs Immat Gran (auto) (0.00 - 0.03 x10 3/uL) 0. 17 H Add Manual Diff NO Immature Gran % (0.0 - 2.0 %) 1.3 Nucleated RBC % (0 - 0 %) 0.0 Nucleated RBCs # (Man) (0.0 - 0.1 x10 3/uL) 0.0 0 Laboratory Tests 07/13 0300 Chemistry Magnesium (1.80 - 2.40 mg/dL) 2.29 Radiology data: Recent Impressions: ULTRASOUND - US RETRO LTD 07/12 1624 Report Impression - Status: SIGNED Entered: 07/13/2022 0651 IMPRESSION: Moderate left hydronephrosis, appears slightly i mproved compared to prior exam. Findings suggestive of medical renal disease. Impression By: Toro Palma M.D. RADIOLOGY - XR CHEST 1 V 07/13 0652 Report Impression - Status: SIGNED Entered: 07/13/2022 0915 IMPRESSION: Left apical pneumothorax measuring approximately 4 cm, approximately 30%. Otherwise, no significant change. Impression By: Toro Palma M.D. Results: labs reviewed, vital signs reviewed, vi marylu signs stable, rhythm personally rev'd, US results reviewed, current m ed profile rev'd Telemetry Interpretation: Normal sinus rhythm Treatment Prophylaxis Treatment Prophylaxis Drain(s)/tube(s): Drain(s)/tube(s): chest Diagnosis, Assessment Plan Problem List/A P: 1. HTN (hypertension) 2. CLAUDETTE (acute kidney injury) 3. CAD (coronary artery disease) 4. Dyslipidemia 5. BPH (benign prostatic hyperplasia) Consultants: cardiology, cardiovascular surgery, nephrology Plan discussed with: patient, nurse Free Text DxA P Notes Free Text DxA P Notes: Mr. Arce is a pleasant 81 y/o M w/ PMHx: HTN, HLD presented to [facility] on 06/28/22 for chest pa in and sob. He was diagnosed NSTEMI w/ Trop was peaked 7600's, EKG w/ normal ST and CLAUDETTE w/ Cr 14 on admission. He underwent LHC on 07/[address] Layne which showed severe mLM 70% stenosis, pLAD diffuse 80% stenosis, mLA D 60% and focal 70% stenosis; pLCx 80% stenosis, dLCx 70% stenosis, pOM 60% stenosis; p RCA 40% stenosis, mRCA 60% stenosis and diffuse 50-60% dRCA. He transferred to [facility] for CABG. - CAD/NSTEMI s/p CABG CABG x 5 (MISTRY-LAD, SVG-Di a, SVG-OM1< SVG-OM3, SVG-PDA) ALAA On statins, BB, ASA, plavix Echo: LVEF 30-34%, Postop care per CTS - Acute Systolic HF with ischemic CMP LVEF 30-34 % strict I/Os, daily weights, fluid restriction, low NA diet diuresis as needed per Nephrology no charly/arb/aldactone due to CLAUDETTE Iniriate GDMT as tolerated, when of pressors persistent hypotension - on vaso and low dose D opamine repeat echocardiogram - CLAUDETTE. HD Per nephro. likely from obstructive uropathy. s/p waters cath. Renal ultrasound showed severe thickening of th e bladder, cholelitiasis. - HTN. hypotension post-op off Pressors. Midodrine 5mg po tid. - HLD. On statins. - Anemia. monitor - Oliguric. Per nephro. On HD today. Worsen creatinine today. CV stable. Electronically Signed by Carolyn Penny NP on at 1243 Electronically Signed by Mame Alexis MD on at 1315 RPT #:[id number] END OF REPORT 2022-07-13 06:50:00-00:00 [facility] Progress Note REPORT#:[id number] REPORT STATUS: Signed DATE:07/13/22 TIME: 06 PATIENT: SHERRI ARCE UNIT #: [id number] ROOM/BED: [place] [address] : 42 AGE: 81 SEX: M ATTEND: Sam Mcarthur MD ADM AUTHOR: Magdaleno Washburn * ALL edits or amendments must be made on the [email or web address] document * Subjective Chief complaint: Rehab follow-up Seen in CCU Doing fair Fatigues easily Sat up in chair for a while Denies NAIK/N/V/D/CP 14 systems reviewed and neg. except that above. Objective General VS: Vital Signs: Date Time Temp Pulse Resp B/P B/P Pulse O2 O2 F low FiO2 Mean Ox Delivery Rate 07/13 0400 98.5 / 0345 100 Nasal 5 cannula 07/13 0000 97.6 07/12 2050 100 Nasal 5 cannula 07/12 1999 98.1 07/12 1999 Nasal 5 cannula 07/12 1657 70 32 105/41 58 100 02/04 1630 124/52 71 02/04 1630 68 26 92/60 72 100 02/04 1600 117/47 64 02/04 1600 72 30 96/52 67 99 02/04 1538 97 High flow 7 nasal cannula 02/04 1530 115/48 64 02/04 1530 72 30 99/55 72 99 02/04 1501 105/43 58 02/04 1501 74 32 93/56 69 95 02/04 1500 74 37 103/44 60 91 02/04 1430 106/49 64 02/04 1430 74 32 103/57 75 94 02/04 1400 101/50 66 02/04 1400 76 24 108/62 81 84 02/04 1354 31/18 24 02/04 1354 78 30 120/60 84 95 02/04 1337 77 38 110/59 79 02/04 1334 78 28 108/57 76 02/04 1330 78 30 115/59 82 02/04 1329 78 32 111/55 77 82 02/04 1327 78 30 96/55 75 95 02/04 1320 75 29 102/57 76 98 02/04 1300 137/53 73 02/04 1300 75 28 115/59 81 100 02/04 1231 116/54 73 02/04 1230 79 59 121/55 74 97 02/04 1217 95 High flow 7 nasal cannula 02/04 1202 97.8 76 24 134/52 94 Nasal 7 cannula 02/04 1200 134/52 71 02/04 1200 77 27 98/58 73 90 02/04 1130 130/52 72 02/04 1130 77 27 105/59 76 92 02/04 1100 141/54 76 02/04 1100 82 24 112/60 80 92 02/04 1054 82 24 139/53 74 91 02/04 1030 139/53 74 02/04 1030 81 27 105/59 77 93 02/04 1000 152/57 81 02/04 1000 85 63 113/64 84 99 02/04 0930 146/56 78 02/04 0930 84 25 125/64 88 95 02/04 0900 148/59 80 02/04 0900 79 19 111/57 79 98 02/04 0858 98 High flow 7 nasal cannula 02/04 0857 97.5 71 27 136/58 97 Nasal 7 cannula 02/04 0830 92/35 50 02/04 0830 78 28 90/53 66 96 02/04 0800 5 02/04 0800 131/56 77 02/04 0800 71 26 105/63 79 96 PATIENT WEIGHT: Weight (lb): 200 Weight (oz): 13.46 Weight (kg): 91.100 Medications: Active Meds + DC'd Last 24 Hrs Albumin Human (ALBUMINAR 25%) 100 ML ONCE ONE IV (DC) Midodrine (PROAMATINE) 5 MG ONCE ONE PO (DC) Midodrine (PROAMATINE) 5 MG 0900,1300,1700 PO Sodium Bicarbonate (SODIUM BICARBONATE) 650 MG B ID PO Ipratropium Kersey (ATROVENT) 500 MCG RTQ2H PRN PRN INH Midodrine (PROAMATINE) 2.5 MG 0900,1300,1700 PO (DC) Lactulose (LACTULOSE) 20 GM DAILY PRN PRN PO Cyanocobalamin (Vitamin B-12 500 mcg tab) 500 MC G DAILY PO Ferrous Sulfate (FERROUS SULFATE) 325 MG DAILY P O Dopamine HCl/Dextrose (DOPamine 400MG/D5W 250ML) 250 ML ASDIR IV Bisacodyl (DULCOLAX) 10 MG ONCE PRN RECTAL Atorvastatin Calcium (LIPITOR) 40 MG 2100 PO Clopidogrel Bisulfate (Plavix) 75 MG DAILY PO Polyethylene Glycol (MIRALAX) 17 GM DAILY PO Miscellaneous Information (PHARMACY TO DOSE/EVAL UATE) 1 EACH ASDIR MISC Calcium Chloride (CALCIUM CHLORIDE) 1 GM ASDIR P RN IV Sodium Chloride (SODIUM CHLORIDE 0.9%) 100 ML Calcium Chloride (CALCIUM CHLORIDE) 2 GM ASDIR P RN IV Sodium Chloride (SODIUM CHLORIDE 0.9%) 100 ML Magnesium Sulfate (MAGNESIUM SULFATE 4GM/SWFI 10 0ML) 100 ML ASDIR PRN IV Magnesium Sulfate (MAGNESIUM SULFATE 2GM/SWFI 50 ML) 50 ML ASDIR PRN IV Miscellaneous (PRISMASATE BGK 4/2.5 SOLUTION) 5, 000 ML ASDIR DIALYSIS Potassium Chloride (KCL 10MEQ/SWFI 50ML) 50 ML A SDIR PRN IV Sodium Chloride (SODIUM CHLORIDE 0.9%) 2,000 ML ASDIR PRN IV Sodium Phosphate (SODIUM PHOSPHATE) 25 MMOL ASDI R PRN IV Sodium Chloride (SODIUM CHLORIDE 0.9%) 250 ML Sodium Phosphate (SODIUM PHOSPHATE) 20 MMOL ASDI R PRN IV Sodium Chloride (SODIUM CHLORIDE 0.9%) 250 ML Sodium Phosphate (SODIUM PHOSPHATE) 15 MMOL ASDI R PRN IV Sodium Chloride (SODIUM CHLORIDE 0.9%) 250 ML Pantoprazole (PROTONIX) 40 MG DAILY@0600 PO Aspirin (ASPIRIN) 81 MG DAILY PO Vasopressin (VASOSTRICT 20 Unit/NS 100ML) 100 ML ASDIR IV (CKD) Amiodarone HCl (CORDARONE) 200 MG TID PO Docusate Sodium (COLACE) 100 MG BID PO Gabapentin (NEURONTIN) 200 MG BID PO Metoprolol Tartrate (LOPRESSOR) 12.5 MG Q12HR PO (DC) Mupirocin (BACTROBAN 2% 22 GM OINTMENT) 1 APPLIC BID NASAL Sennosides (Senna Lax 8.6 MG TABLET) 17.2 MG BED TIME PO Ipratropium Kersey (ATROVENT) 500 MCG RTQ4H INH Acetaminophen (TYLENOL) 650 MG Q4H PRN PRN PO Acetaminophen (TYLENOL) 650 MG Q4H PRN PRN RECTA L Calcium Chloride (CALCIUM CHLORIDE) 1 GM ASDIR P RN IV Dextrose/Water (DEXTROSE 10% IN WATER) 125 ML DIR PRN IV (CKD) Dextrose/Water (DEXTROSE 10% IN WATER) 250 ML DIR PRN IV (CKD) Epinephrine (ADRENALIN CHLORIDE) 4 MG ASDIR IV Dextrose/Water (DEXTROSE 5% WATER) 246 ML Glucagon (GLUCAGON) 1 MG ASDIR PRN IM Magnesium Sulfate (MAGNESIUM SULFATE 4GM/SWFI 10 0ML) 100 ML ASDIR PRN IV Magnesium Sulfate (MAGNESIUM SULFATE 2GM/SWFI 50 ML) 50 ML ASDIR PRN IV Magnesium Sulfate/Dextrose (MAGNESIUM SULFATE 1G M/D5W 100ML) 100 ML ASDIR PRN IV Nitroglycerin/Dextrose (NITROGLYCERIN 50,000MCG/ D5W 250ML) 250 ML ASDIR IV Norepinephrine Bitartrate (NOREPINEPHRINE 8 MG/N S 250 ML) 250 ML TITRATE IV Ondansetron HCl (ZOFRAN) 4 MG Q6H PRN PRN IV Oxycodone HCl (ROXICODONE) 5 MG Q4H PRN PRN PO Oxycodone HCl (ROXICODONE) 10 MG Q4H PRN PRN PO Potassium Chloride (KCL 20MEQ/SWFI 100ML) 100 ML ASDIR PRN IV Sodium Bicarbonate (SODIUM BICARBONATE) 50 MEQ A SDIR PRN IV Sodium Chloride (SODIUM CHLORIDE 0.9%) 250 ML Q2 4H IV Albumin Human (ALBUMINAR-25%) 12.5 GM ASDIR PRN IV Heparin Sodium (Porcine) (HEPARIN SODIUM) 3,000 UNIT ASDIR PRN DIALYSIS Lidocaine HCl (LIDOCAINE HCL/PF) 0.5 ML ASDIR NV N I-DERMAL (CKD) Mannitol (Mannitol 20%) 12.5 GM ASDIR PRN IV Sodium Chloride (SODIUM CHLORIDE 0.9%) 2,000 ML ASDIR PRN IV Tamsulosin HCl (Flomax 0.4 mg) 0.4 MG BEDTIME PO Functional Progress Functional progress: Lateral Scooting Right: Moderate Assistance Lateral Scooting Left: Moderate Assistance Supine to/from sitting: Maximal Assistance Sit to Stand: Moderate Assistance Pivot Transfer: Minimal Assistance Bed to/from chair: Minimal Assistance Activities Performed Cmt: BED MOBILITY EXERCISE S, FT TRAINING, ENDURANCE TRAINING, SAFETY EDUCATION. Assistive Device Used: Staff Support RW Balance: Fair Safety Awareness: Fair Effects of Treatment: Circulation improved Tolerance increased Comments: PATIENT MAX-MOD A FOR BED MOBILITY. 2 SIT STANDS WITH SBP HOLDING 90-100s. PATIENT USING RW FOR TRANSFER TRAINING WITH MIN A AND EXTRA STAFF FOR LINE MANAGEMENT/SAFETY. PATIENT W EXTENDED STANDING ACTIVITY 5-10 MIN SBP 80-100s WITH NO REPORT OF DIZZINESS OR LE WEAKNESS FROM PATIENT. PATIENT TO BEDSIDE CHAIR FOLLOWING OT SESSION BP UP TO 120/60s. NEEDS WITHIN REACH AND BUSINESS CENTER REPRESENTATIVE AWARE OF PATIENT'S STATUS. Physical Exam General appearance: alert, awake Psych: alert, oriented x 3 HEENT: anicteric, sclera clear Neck: supple, no JVD Cardiovascular: regular rate rhythm, S1/S2 Respiratory: aerating well, clear bilaterally Abdomen: bowel sounds present, non-distended, so ft Skin: intact, no rash Musculoskeletal - general: Musculoskeletal - general: joints normal, meagan l muscle mass, normal tone 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ALTH: alert, oriented X 3, CNII-XII intact Results Findings/Data: Laboratory Tests: 07/13 07/13 07/12 0304 0300 1150 Blood Gas Puncture Site Art Line O2 Saturation (90 - 100 %) 93.8 ABG pH (7.35 - 7.45) 7.415 ABG pCO2 (35.0 - 45 mmHg) 35.4 ABG pO2 (80 - 100.0 mmHg) 68.5 L ABG PO2/FiO2 Ratio (mm/Hg) 214.06 ABG HCO3 (22.0 - 26.0 MMOL/L) 22.7 ABG Total CO2 23.8 ABG Base Excess (-4.0 - 4.0 MMOL/L) -1.9 ABG Hematocrit (37.5 - 50.7 %) 23 L ABG Hemoglobin (12.5 - 16.9 G/DL) 7.9 L Sodium (134 - 147 mmol/L) 132 L Potassium (3.4 - 5.0 mmol/L) 4.7 Chloride (100 - 108 mmol/L) 100 Ionized Calcium (1.12 - 1.32 MMOL/L) 1.13 Lactic Acid (0.9 - 1.7 mmol/l) 0.6 L O2 Delivery Device Cannula FiO2 (%) 32 Chemistry Sodium (134 - 147 mEq/L) 134 137 Potassium (3.4 - 5.0 mEq/L) 4.7 3.4 Chloride (100 - 108 mEq/L) 102 102 Carbon Dioxide (21 - 33 mEq/l) 25 29 Anion Gap (0 - 20) 12 9 BUN (7 - 18 mg/dL) 49 H 22 H Creatinine (0.6 - 1.3 mg/dL) 3.9 H 2.1 H POC Creatinine (0.8 - 1.3 mg/dL) 4.0 H Glomerular Filtr Rate (70 - 80) 15.0 L 31.4 L Glucose (70 - 110 mg/dL) 87 104 POC Glucose (mg/dL) (70 - 110 MG/DL) 84 Calcium (8.0 - 10.5 mg/dL) 8.0 8.2 Ionized Calcium Tenzin (1.09 - 1.30 MMOL/L) 1.12 Magnesium (1.80 - 2.40 mg/dL) 2.29 2.03 Hematology WBC (4.5 - 11.0 x10 3/uL) 13.2 H 16.3 H RBC (4.00 - 5.60 x10 6/uL) 2.61 L 2.72 L Hgb (12.5 - 16.9 g/dL) 7.8 L 8.3 L Hct (37.5 - 50.7 %) 24.2 L 25.5 L MCV (81.0 - 99.0 fL) 92.7 93.8 MCH (27.0 - 33.0 pg) 29.9 30.5 MCHC (33.0 - 37.0 g/dL) 32.2 L 32.5 L RDW (11.5 - 14.5 %) 16.5 H 17.0 H Plt Count (150 - 400 x10 3/uL) 160 134 L MPV (7.0 - 9.0 fL) 10.9 H 11.5 H Neut % (Auto) (56.0 - 77.0 %) 76.0 85.0 H Lymph % (Auto) (14.0 - 32.0 %) 7.0 L 3.6 L [place] % (Auto) (4.8 - 9.0 %) 8.8 5.3 Eos % (Auto) (0.3 - 3.7 %) 6.4 H 4.4 H Baso % (Auto) (0.0 - 2.0 %) 0.5 0.4 Neut # (Auto) (2.0 - 7.6 x10 3/uL) 10.04 H 13.8 3 H Lymph # (Auto) (1.0 - 3.8 x10 3/uL) 0.93 L 0.59 L [place] # (Auto) (0.1 - 0.8 x10 3/uL) 1.17 H 0.87 H Eos # (Auto) (0.0 - 0.2 x10 3/uL) 0.85 H 0.72 H Baso # (Auto) (0.0 - 0.2 x10 3/uL) 0.07 0.07 Abs Immat Gran (auto) (0.00 - 0.03 x10 3/uL) 0. 17 H 0.21 H Add Manual Diff NO NO Immature Gran % (0.0 - 2.0 %) 1.3 1.3 Nucleated RBC % (0 - 0 %) 0.0 0.0 Nucleated RBCs # (Man) (0.0 - 0.1 x10 3/uL) 0. 00 0.00 Diagnosis, Assessment Plan Free Text A P: Non-STEMI Multivessel CAD S/p CABG x5 Physical deconditioning Impaired mobility and gait Postoperative anemia Dyslipidemia Hypertension CLAUDETTE Acute systolic heart failure Hemodynamic issues postop Leukocytosis trending down Plan: Continue PT/OT Out of bed to chair Work on strength, bed mobility, transfers, gait Sternal precaution Increase endurance Fall precautions Monitor p.o. intake and nutrition Strict decubitus precautions Advance therapies as tolerated Nephrology managing renal issues IRF consulted. Will require insurance approval Total time was 33 minutes > 50% with patient per forming physical examination, discussing plan of care, goals, therapies, progr ess, medications, labs. All questions answered Rehab attestation: , Electronically Signed by Magdaleno Washburn on 0 07/13/22 at 2155 RPT #:[id number] END OF REPORT 2022-07-13 06:19:00-00:00 [facility] REPORT#:[id number] REPORT STATUS: Signed DATE:07/13/22 TIME: 618 PATIENT: SHERRI ARCE UNIT #: [id number] ROOM/BED: [place] [address] : 42 AGE: 81 SEX: M ATTEND: Srinath Kaur MD ADM AUTHOR: Gianna Hoover * ALL edits or amendments must be made on the el [employer]/computer document * General Post-op: day 5 Status post: 07/08/22 CABG x 5 (MISTRY-LAD, SVG-Ladonna, SVG-OM1< SVG-OM3, SVG-PDA) ALABud TATUM (RGSV) Subjective Chief complaint: s/p CABG no complaints Review of Systems Constitutional: Denies: chills, fever, malaise. Allergy/Immun: Denies: allergic reaction. Respiratory: Denies: SOB. Cardiovascular: Denies: chest pain, palpitations. GI: Denies: abdominal pain, nausea, vomiting. : Denies: dysuria, hematuria. Heme: Denies: bleeding. Neuro: Denies: dizziness, headache, vision change. All systems rev neg: except as marked Objective General VS/I O Last Documented: Result Date Time Pulse Ox 100 07/13 034 O2 Delivery Nasal cannula 07/13 034 O2 Flow Rate 5 07/13 0345 Temp 98.1 07/12 2000 B/P 105/41 07/12 1657 B/P Mean 58 07/12 1657 Pulse 70 07/12 1657 Resp 32 07/12 1657 FiO2 50 07/08 1919 24 hour I O ending at 0700: 07/13 0700 07/12 1900 Intake Total 240 Output Total 1746 Balance -1506 Intake, Oral 240 Output, Chest 120 Tube Drainage Output, 1001 Hemodialysis Output, Urine 625 PATIENT WEIGHT: Weight (lb): 207 Weight (oz): 7.28 Weight (kg): 94.100 Dietitian Nutrition assessment The data set between the solid lines has been im ported from the dietitian's assessment. BMI Calculated: 27.2 Nutrition related diagnosis: Nutrition diagnosis details: Nutrition problem: Increased nutrient needs Nutrition etiology: Chronic disease Nutrition signs and symptoms: ESTIMATED NEEDS S/ P CABG Nutrition prescription: 1. R ECOMMEND CONTIUE CARDIAC DIET, MONITOR LABS WITH PT ON DIALYSIS. 2. CONTINUE NEPRO BID. 3. DIET EDUC ATION PRIOR TO DISCHARGE. 4. MONITOR PO, WT, LABS, BM. Dietitian name: Trang Rodriguez, DIET Assessment completed: 07/10/22 Physical Exam General appearance: alert, awake, oriented Wound/incision: Location: sternal Site condition: dressing clean dry, dressing in tact HEENT: anicteric, mucosal membranes moist Neck: supple/no meningismus Cardiovascular: normal heart sounds, regular rat e rhythm Respiratory: aerating well, symmetric expansion, no distress Abdomen: soft, non-tender, no distention Genitourinary: waters, oN hd Extremities: moves all 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ALTH: alert, oriented X 3, normal speech, n o motor deficits Psychiatry: normal affect, normal mood Current Medications Medications: Active Meds + DC'd Last 24 Hrs Albumin Human (ALBUMINAR 25%) 100 ML ONCE ONE IV (DC) Midodrine (PROAMATINE) 5 MG ONCE ONE PO (DC) Midodrine (PROAMATINE) 5 MG 0900,1300,1700 PO Sodium Bicarbonate (SODIUM BICARBONATE) 650 MG B ID PO Ipratropium Kersey (ATROVENT) 500 MCG RTQ2H PRN PRN INH Lactulose (LACTULOSE) 20 GM DAILY PRN PRN PO Cyanocobalamin (Vitamin B-12 500 mcg tab) 500 MC G DAILY PO Ferrous Sulfate (FERROUS SULFATE) 325 MG DAILY P O Dopamine HCl/Dextrose (DOPamine 400MG/D5W 250ML) 250 ML ASDIR IV Bisacodyl (DULCOLAX) 10 MG ONCE PRN RECTAL Atorvastatin Calcium (LIPITOR) 40 MG 2100 PO Clopidogrel Bisulfate (Plavix) 75 MG DAILY PO Polyethylene Glycol (MIRALAX) 17 GM DAILY PO Miscellaneous Information (PHARMACY TO DOSE/EVAL UATE) 1 EACH ASDIR MISC Calcium Chloride (CALCIUM CHLORIDE) 1 GM ASDIR P RN IV Sodium Chloride (SODIUM CHLORIDE 0.9%) 100 ML Calcium Chloride (CALCIUM CHLORIDE) 2 GM ASDIR P RN IV Sodium Chloride (SODIUM CHLORIDE 0.9%) 100 ML Magnesium Sulfate (MAGNESIUM SULFATE 4GM/SWFI 10 0ML) 100 ML ASDIR PRN IV Magnesium Sulfate (MAGNESIUM SULFATE 2GM/SWFI 50 ML) 50 ML ASDIR PRN IV Miscellaneous (PRISMASATE BGK 4/2.5 SOLUTION) 5, 000 ML ASDIR DIALYSIS Potassium Chloride (KCL 10MEQ/SWFI 50ML) 50 ML A SDIR PRN IV Sodium Chloride (SODIUM CHLORIDE 0.9%) 2,000 ML ASDIR PRN IV Sodium Phosphate (SODIUM PHOSPHATE) 25 MMOL ASDI R PRN IV Sodium Chloride (SODIUM CHLORIDE 0.9%) 250 ML Sodium Phosphate (SODIUM PHOSPHATE) 20 MMOL ASDI R PRN IV Sodium Chloride (SODIUM CHLORIDE 0.9%) 250 ML Sodium Phosphate (SODIUM PHOSPHATE) 15 MMOL ASDI R PRN IV Sodium Chloride (SODIUM CHLORIDE 0.9%) 250 ML Pantoprazole (PROTONIX) 40 MG DAILY@0600 PO Aspirin (ASPIRIN) 81 MG DAILY PO Vasopressin (VASOSTRICT 20 Unit/NS 100ML) 100 ML ASDIR IV (CKD) Amiodarone HCl (CORDARONE) 200 MG TID PO Docusate Sodium (COLACE) 100 MG BID PO Gabapentin (NEURONTIN) 200 MG BID PO (DC) Mupirocin (BACTROBAN 2% 22 GM OINTMENT) 1 APPLIC BID NASAL (DC) Sennosides (Senna Lax 8.6 MG TABLET) 17.2 MG BED TIME PO Ipratropium Kersey (ATROVENT) 500 MCG RTQ4H IN H Acetaminophen (TYLENOL) 650 MG Q4H PRN PRN PO Acetaminophen (TYLENOL) 650 MG Q4H PRN PRN RECTA L Calcium Chloride (CALCIUM CHLORIDE) 1 GM ASDIR P RN IV Dextrose/Water (DEXTROSE 10% IN WATER) 125 ML DIR PRN IV (CKD) Dextrose/Water (DEXTROSE 10% IN WATER) 250 ML DIR PRN IV (CKD) Epinephrine (ADRENALIN CHLORIDE) 4 MG ASDIR IV Dextrose/Water (DEXTROSE 5% WATER) 246 ML Glucagon (GLUCAGON) 1 MG ASDIR PRN IM Magnesium Sulfate (MAGNESIUM SULFATE 4GM/SWFI 10 0ML) 100 ML ASDIR PRN IV Magnesium Sulfate (MAGNESIUM SULFATE 2GM/SWFI 50 ML) 50 ML ASDIR PRN IV Magnesium Sulfate/Dextrose (MAGNESIUM SULFATE 1G M/D5W 100ML) 100 ML ASDIR PRN IV Nitroglycerin/Dextrose (NITROGLYCERIN 50,000MCG/ D5W 250ML) 250 ML ASDIR IV Norepinephrine Bitartrate (NOREPINEPHRINE 8 MG/N S 250 ML) 250 ML TITRATE IV Ondansetron HCl (ZOFRAN) 4 MG Q6H PRN PRN IV Oxycodone HCl (ROXICODONE) 5 MG Q4H PRN PRN PO Oxycodone HCl (ROXICODONE) 10 MG Q4H PRN PRN PO Potassium Chloride (KCL 20MEQ/SWFI 100ML) 100 ML ASDIR PRN IV Sodium Bicarbonate (SODIUM BICARBONATE) 50 MEQ A SDIR PRN IV Sodium Chloride (SODIUM CHLORIDE 0.9%) 250 ML Q2 4H IV Albumin Human (ALBUMINAR-25%) 12.5 GM ASDIR PRN IV Heparin Sodium (Porcine) (HEPARIN SODIUM) 3,000 UNIT ASDIR PRN DIALYSIS Lidocaine HCl (LIDOCAINE HCL/PF) 0.5 ML ASDIR NV N I-DERMAL (CKD) Mannitol (Mannitol 20%) 12.5 GM ASDIR PRN IV Sodium Chloride (SODIUM CHLORIDE 0.9%) 2,000 ML ASDIR PRN IV Tamsulosin HCl (Flomax 0.4 mg) 0.4 MG BEDTIME PO Results Findings/Data: Laboratory Tests 07/13 030 Blood Gas Puncture Site Art Line O2 Saturation (90 - 100 %) 93.8 ABG pH (7.35 - 7.45) 7.415 ABG pCO2 (35.0 - 45 mmHg) 35.4 ABG pO2 (80 - 100.0 mmHg) 68.5 L ABG PO2/FiO2 Ratio (mm/Hg) 214.06 ABG HCO3 (22.0 - 26.0 MMOL/L) 22.7 ABG Total CO2 23.8 ABG Base Excess (-4.0 - 4.0 MMOL/L) -1.9 ABG Hematocrit (37.5 - 50.7 %) 23 L ABG Hemoglobin (12.5 - 16.9 G/DL) 7.9 L Sodium (134 - 147 mmol/L) 132 L Potassium (3.4 - 5.0 mmol/L) 4.7 Chloride (100 - 108 mmol/L) 100 Ionized Calcium (1.12 - 1.32 MMOL/L) 1.13 Lactic Acid (0.9 - 1.7 mmol/l) 0.6 L O2 Delivery Device Cannula FiO2 (%) 32 Laboratory Tests 07/13 07/13 07/12 0304 0300 1150 Chemistry Sodium (134 - 147 mEq/L) 134 137 Potassium (3.4 - 5.0 mEq/L) 4.7 3.4 Chloride (100 - 108 mEq/L) 102 102 Carbon Dioxide (21 - 33 mEq/l) 25 29 Anion Gap (0 - 20) 12 9 BUN (7 - 18 mg/dL) 49 H 22 H Creatinine (0.6 - 1.3 mg/dL) 3.9 H 2.1 H POC Creatinine (0.8 - 1.3 mg/dL) 4.0 H Glomerular Filtr Rate (70 - 80) 15.0 L 31.4 L Glucose (70 - 110 mg/dL) 87 104 POC Glucose (mg/dL) (70 - 110 MG/DL) 84 Calcium (8.0 - 10.5 mg/dL) 8.0 8.2 Ionized Calcium Tenzin (1.09 - 1.30 MMOL/L) 1.12 Magnesium (1.80 - 2.40 mg/dL) 2.29 2.03 Laboratory Tests 07/13 07/12 0300 1150 Hematology WBC (4.5 - 11.0 x10 3/uL) 13.2 H 16.3 H RBC (4.00 - 5.60 x10 6/uL) 2.61 L 2.72 L Hgb (12.5 - 16.9 g/dL) 7.8 L 8.3 L Hct (37.5 - 50.7 %) 24.2 L 25.5 L MCV (81.0 - 99.0 fL) 92.7 93.8 MCH (27.0 - 33.0 pg) 29.9 30.5 MCHC (33.0 - 37.0 g/dL) 32.2 L 32.5 L RDW (11.5 - 14.5 %) 16.5 H 17.0 H Plt Count (150 - 400 x10 3/uL) 160 134 L MPV (7.0 - 9.0 fL) 10.9 H 11.5 H Neut % (Auto) (56.0 - 77.0 %) 76.0 85.0 H Lymph % (Auto) (14.0 - 32.0 %) 7.0 L 3.6 L [place] % (Auto) (4.8 - 9.0 %) 8.8 5.3 Eos % (Auto) (0.3 - 3.7 %) 6.4 H 4.4 H Baso % (Auto) (0.0 - 2.0 %) 0.5 0.4 Neut # (Auto) (2.0 - 7.6 x10 3/uL) 10.04 H 13.8 3 H Lymph # (Auto) (1.0 - 3.8 x10 3/uL) 0.93 L 0.59 L [place] # (Auto) (0.1 - 0.8 x10 3/uL) 1.17 H 0.87 H Eos # (Auto) (0.0 - 0.2 x10 3/uL) 0.85 H 0.72 H Baso # (Auto) (0.0 - 0.2 x10 3/uL) 0.07 0.07 Abs Immat Gran (auto) (0.00 - 0.03 x10 3/uL) 0 .17 H 0.21 H Add Manual Diff NO NO Immature Gran % (0.0 - 2.0 %) 1.3 1.3 Nucleated RBC % (0 - 0 %) 0.0 0.0 Nucleated RBCs # (Man) (0.0 - 0.1 x10 3/uL) 0.0 0 0.00 Radiology data: Recent Impressions: ULTRASOUND - US RETRO LTD 07/12 1624 Report Impression - Status: SIGNED Entered: 07/13/2022 0651 IMPRESSION: Moderate left hydronephrosis, appears slightly i mproved compared to prior exam. Findings suggestive of medical renal disease. Impression By: Toro - Delmer Palma M.D. RADIOLOGY - XR CHEST 1 V 07/13 0652 Report Impression - Status: SIGNED Entered: 07/13/2022 0915 IMPRESSION: Left apical pneumothorax measuring approximately 4 cm, approximately 30%. Otherwise, no significant change. Impression By: Toro - Delmer Palma M.D. Results: labs reviewed, vital signs stable, danilo turcios personally rev'd, x-ray personally reviewed, current med profile rev'd Quality: Trauma Gen Surg Advanced Care Plan 65 or Older Discussed with: patient Discussion included: living will (none), power of employment law attorney (none), code status ( full code) VTE Prophylaxis - General VTE prophylaxis initiated: yes Diagnosis, Assessment Plan Hospital course to date: This is a 81-year-old gentleman who presented to an outside hospital with complaints of chest pains while walking at his home on Thursday. He denies any previous history of coronary artery disease or o ther NE. He was seen and evaluated at [facility]. He was found to have a urinary tract infection with urinary retention and acute kidne y. He was started on dialysis via a left femoral temporary catheter. He underw ent dialysis on Thursday, Thursday. Renal has been consulted During his work-up at outside hospital he underw ent Left heart catheterization showing sever e Left Main 70%. LAD: Proximal diffuse 80% stenosis and then diffuse 60% in the midsegment and on the distal segment, there is focal 70% stenosis. Diagonal branches w ith luminal irregularities. Left circumflex, codominant circulation with pro ximal 80%, mid 80 to 90% and then in the OM, there is proximal 60%, distal le ft circumflex has a 70% stenosis. RCA large and dominant with proximal 4 0% stenosis, mid 60% stenosis and then diffuse 50% stenosi s all the way distally and the PLV and the PDA with luminal irregularities. CV surgery consulted for evaluation for coronary bypass graft. CAROTIDS - No carotid stenosis CT chest complete IMPRESSION: Small bilateral pleural effusions with bibasila r atelectasis. Echo: 1. Left ventricle: The cavity size is at the upp er limits of normal. Wall thickness is mildly increased. Systolic fu nction is severely reduced. The estimated ejection fraction is 30- 34%. Moderate hypokinesis of the entire myocardium. Doppler p arameters are consistent with abnormal left ventricular relax ation (grade 1 diastolic dysfunction). 2. Pericardium, extracardiac: A small pericardia l effusion is identified along the left ventricular free wall, along the right ventricular free wall, and along the right atrial free wall . Assessment/Plan 1) CAD Mutlivessel Will obtain echo,carotids. 2) CLAUDETTE Started dialysis on Creatine 7.3 Renal consulted. 3) BPH- Urinary retention. Waters in place Workup for CABG underway. Will get functional assessment with PT. PFT pending Carotid dopplers- No disease Echo Pending Dialyiss per Renal. Baseline Cr unknown. 07/04 07/04 Doing well today, alert, up in the chair. Denies chest pain Echocardiogram showed LVEF 30 to 34%, mild MR, t rivial TR CT chest images reviewed Encourage I-S and mobilization Creatinine 5.5 from 7.3, good urine output. Pao l US showed bilateral severe hydronephrosis. Plan for HD today and tomorrow Will tentatively schedule patient for surgery on Thursday. Patient seen and plan reviewed with Dr Schwarz 07/05 Remains in a stable condition, denies chest pain BUN 53, creatinine 5.4. Plan for hemodia lysis today and tomorrow for clearance He is also on Lasix 20 mg IV twice daily, urine output 1.1 L overnight We will calculate risk of surgery with STS score Encourage I-S and mobilization Will tentatively schedule patient for surgery on Thursday. Pt seen and plan reviewed with Dr Schwarz 07/06 BUN 36, creatinine 4.4. Plan for hemodialysis to day Awaiting CABG tomorrow Surgery, risks involved, STS score, benefits, co mplications and alternatives were explained to the patient. He acknow ledged understanding and is willing to proceed N.p.o. after midnight Patient seen and plan reviewed with Dr. Schwarz 07/09/22 POD 1 CABG x 5 (MISTRY-LAD, SVG-Ladonna, SVG-OM1< SVG-OM3, S VG-PDA), RC ESPINOZA (RGSV) Patient hemodynamically unstable, on epi at 4, a nd vaso .04, decreased uop overnight- 150cc Started patient on CRRT 2k/3.5 Wean epi as tolerated, Cardiac incex 2.8-3 labs and chest x-ray reviewed, electroly marcie stable, hgb 6.5- transfuse 2 units PRBC On 4l nasal cannula- encourage incentive spirome ter and deep breathing Keep both chest tubes and monitor outputs Glycemic control on insulin drip Cardiac diet Bowel regimen protocol Pain management SCDs for DVT and PPI for GI prophylaxis PT/OT Monitor patient closely in CVICU Plan of care discussed with Dr. Schwarz 07/10/22 POD 2 Patient alert, awake, and oriented, no distres n oted labs and CXR reviewed stable Breathing comfortably on 3l nasal cannula- wean as tolerated to melissa O2 sats > 92 % Encourage I-S use and deep breathing On CRRT- able to remove 2.9L overnight- nephrolo gy following Cardiac index 3.1- wean off epi drip Keep chest tubes for now and monitor outputs Transition to sliding scale insulin- cardiac t Try to get patient out of bed to chair today- am bulate with PT/OT SCDs for DVT prophylaxis Keep patient in CVICU for close monitoring 07/11/22 POD 3 Patient in stable condition, overnight e vents noted- decreased urine output 35 ml last night-started on dopamine gtt for renal perfusion Cardiac index 3.5- epi currently at 2- will disc ontinue today, vasopressin at 0.02, added low dose midodrine 2.5 mg TID, repea t echocardiogram. Renal Following- trial Lasix Patient has Left femoral tem p dialysis cath, Will need tunneled dialysis IJ cath placed if need dialysis. On 5l nasal cannula- wean off as tolerat ed, encourage incentive spirometer and deep breathing Keep left pleural chest tube and monitor output- > 200 cc Tolerating diet, bowel regimen protocol PT/OT- patient out of bed to chair today- encour age ambulation DVT prophylaxis with SCDs Monitor patient closely in CVICU Plan discussed with multidisciplinary team Plan discussed with Dr Schwarz/ Dr Rodríguez 07/12/22 POD 5, Patient resting comfortable. Patient with hx of urinary r etention- After standing today- voided 1.4 L. Needs Urology consult for retention K 5.4- HD in progress. Dr Plaza following. CT output 20- DC today. Pacers remain in place. Patient has Left femoral tem p dialysis cath, Re-evaluate on Thursday if ocean transportation intermediary dialysis needed. Card: Remains in sinus rhythm. Respir: on 7 L NC O2 95% Dispo: Rehab consulted Patient seen and exmained by Dr Rodríguez. Plan discussed with Team 07/13/22 POD 5 Patient with no new complaints. Recieved HD yest erday. Requiring less oxygen, now on 3l nasal cannula- continue to wean off CXR reviewed left apical pne umothorax 4cm/30%, Chest tube drained 140 overnight, placed back on suction to clear pneumo, CT drianed 200cc th is AM. on suction. Labs reviewed- stable, decreased WBC, hgb stable , CR 3.9 Eating welll, +BM UO- 550CC, BP improved on midodrine. Continue PT/OT, ambulation and incentive spirome ter use Rehab folowing Monitor in ICU today Disucssed with Dr Schwarz- Adeola C femoral line and Central line today. DC art line. Will re-eval need for dialysis cath Thursday. Cons ider tunnelled cath if need. Patient seen and examined by Dr Rodríguez. Plan discussed with Care team. Consultants: cardiology, cardiovascular surgery, nephrology Electronically Signed by Gianna Hoover on 0 07/13/22 at 1145 at 1944 RPT #:[id number] END OF REPORT 2022-07-12 20:51:00-00:00 [id number] [place] [address] PATIENT NAME: SHERRI ARCE ADMIT DATE: 07/02/22 ACCOUNT NO: [id number] ROOM NO: [facility] AGE: 81 REPORT TYPE: eECHOCARDIOGRAM REPORT SEX: M ADMITTING PHYSICIAN:Radha Ward MD ATTENDING PHYSICIAN:Sarbjit Mcarthur MD *[facility]* [address] [place] [address]. [place] [address] Transthoracic Echocardiogram Patient: Sherri Arce Study Date: 07/11/2022 BP: 128 / 44 Location: [facility] URN: [id number] : 1940 Age: 81 Height: 72 in / 183 cm Gender: M Weight: 202 .4 lb / 92 kg BMI/BSA: 27.5 kg/m 2 / 2.18 m 2 *Ordering Physician: * Edwardo Flannery *Interpreting Physician: * Mame Alexis MD *Computational Sciences Professor: * Desire Tsang [facility] Indications: HYPOTENSION. Study data: Transthoracic echocardiogram. Proced ure: Transthoracic echocardiography was performed. Images were obta ined using a Cennox cardiac ultrasound machine. Image quality was adequate. The study was technically limited due to poor acoustic window availability and surgical dressings. The parasternal window was l ow, thus no M-mode measurements were recorded. Complete 2D, complet e spectral Doppler, and color Doppler. Location: Bedside. Patient status : Inpatient. Patient room number: 2202. Study status: Stat. Findings Left ventricle: The cavity size is at the upper limits of normal. Wall thickness is mildly increased. Systolic function is severely reduced. The estimated ejection fraction is 20-24%. Regio nal wall motion abnormalities: Severe hypokinesis of the entire myocardium. Features PATIENT NAME: SHERRI ARCE are consistent with a pseudonormal left ventricu lar filling pattern, with concomitant abnormal relaxation and increas ed filling pressure (grade 2 diastolic dysfunction). Right ventricle: The cavity size is normal. Pace r wire noted in the right ventricle. Systolic function is mildly red uced. Left atrium: The atrium is at the upper limits o f normal in size. Right atrium: The atrium is normal in size. Pace r wire noted in right atrium. Aorta: Aortic root: The aortic root is normal in size. Aortic valve: The valve is structurally normal. The valve is trileaflet. There is no evidence of stenosis. Th ere is no regurgitation. Mitral valve: The leaflets are mildly thickened. There is no evidence of stenosis. There is mild regurgitation. Tricuspid valve: The valve is structurally meagan l. There is trivial regurgitation. Pulmonic valve: Not visualized. Pericardium: A trivial pericardial effusion is i dentified along the right ventricular free wall. There is a right pl eural effusion. Pulmonary arteries: Main pulmonary artery: The artery is of normal s ize. Systemic veins: Inferior vena cava: The vessel is dilated. Respi rophasic changes in dimension are absent. Measurements Left ventricle Value 07/03/2022 Ref AARTI, LAX 5.1 cm 5.3 4.2 - 5.8 ESD, LAX 4.3 cm 4.4 2.5 - 4.0 ESD/bsa, 2.0 cm/m 2 2.1 1.3 LAX - 2.1 FS, LAX 15 % 17 25 - 43 ESD/bsa 3.8 cm/m 2 3.7 ---- major ax, A4C AARTI/bsa 3.8 cm/m 2 3.7 ---- minor ax, A4C AARTI major 9.0 cm 9.0 ---- ax, A2C AARTI/bsa 4.1 cm/m 2 4.3 ---- major ax, A2C PW, ED 1.1 cm 1.3 0.6 - 1.0 PATIENT NAME: SHERRI ARCE IVS/PW, ED 1.06 0.84 ---- EF 31 % 36 52 - 72 E', lat 2.6 cm/sec 7.0 >=10 nat, TDI .0 E/e', lat 44 18 ---- nat, TDI E', med 5.4 cm/sec 5.5 >=7. nat, TDI 0 E/e', med 21 23 ---- nat, TDI E', avg, 4.0 cm/sec 6.2 ---- TDI E/e', avg, 29 20 <=14 TDI LVOT Value 07/03/2022 Ref Diam, S 2.00 cm 2.06 ---- Area 3.1 cm 2 3.3 ---- Peak julisa, 0.95 m/sec 1.05 ---- S Mean julisa, 0.67 m/sec 0.74 ---- S VTI, S 15.7 cm 19.7 ---- Peak grad, 4 mm Hg 4 ---- S Mean grad, 2 mm Hg 2 ---- S SV 49 ml 65 ---- Qs 12.46 L/min 4.7 ---- Qs/bsa 5.7 L/(min-m 2) 2.2 ---- SV/bsa 23 ml/m 2 31 ---- Ventricular septum Value 07/03/2022 Ref IVS, ED 1.2 cm 1.1 0.6 - 1.0 Right ventricle Value 07/03/2022 Ref TAPSE, MM 1.3 cm 2.3 1.7 - 3.1 Left atrium Value 07/03/2022 Ref AP dim, ES 3.65 cm 3.58 3.00 - 4.00 Vol/bsa, 12 ml/m 2 31 12 - ES, 1-p 37 A4C Vol/bsa, 14 ml/m 2 36 16 - ES, A/L 34 Right atrium Value 07/03/2022 Ref PATIENT NAME: SHERRI ARCE Area, ES 21 cm 2 16 10 - 18 SI dim, 5.6 cm 5.3 3.4 ES, A4C - 5.3 SI 2.6 cm/m 2 2.5 1.8 dim/bsa, - ES, A4C 3.0 Vol, ES, 65 ml 42 ---- A/L Vol, ES, 65 ml 41 ---- 1-p A4C Vol/bsa, 30 ml/m 2 20 11 - ES, 1-p 39 A4C Aortic valve Value 07/03/2022 Ref Peak v, S 1.66 m/sec 1.6 ---- Mean v, S 1.15 m/sec 1.15 ---- VTI, S 21.3 cm 26.5 ---- Mean grad, 5.9 mm Hg 5.7 ---- S Peak grad, 11.1 mm Hg 10.2 ---- S LVOT/AV, 0.74 0.74 ---- VTI ratio CHERELLE, VTI 2.32 cm 2 2.47 ---- LVOT/AV, 0.57 0.66 ---- Vpeak ratio CHERELLE, Vmax 1.80 cm 2 2.20 ---- Mitral valve Value 07/03/2022 Ref Peak E 0.04 m/sec 0.06 ---- Peak A 0.86 m/sec 1.42 ---- Decel time 126 ms 100 ---- Peak E/A 1.33 0.88 ---- ratio Pulmonic valve Value 07/03/2022 Ref NV v, ED 2.52 m/sec 0.72 ---- NV grad, 25 mm Hg ---- ED Conclusions Summary: 1. Left ventricle: The cavity size is at the upp er limits of normal. Wall thickness is mildly increased. Systolic fu nction is severely reduced. The estimated ejection fraction is 20- 24%. Severe hypokinesis of the entire myocardium. Features are consistent with a pseudonormal left ventricular filling pattern, with concomitant PATIENT NAME: SHERRI ARCE abnormal relaxation and increased filling press ure (grade 2 diastolic dysfunction). 2. Right ventricle: Systolic function is mildly reduced. 3. Pericardium, extracardiac: A trivial pericard ial effusion is identified along the right ventricular free wal l. There is a right pleural effusion. Prepared and electronically signed by Mame Alexis MD 07/12/2022 20:51 Electronically Signed by Mame Alexis MD on 0 07/12/22 at 2051 PATIENT NAME: SHERRI ARCE 2022-07-12 13:32:00-00:00 [facility] Hospitalist Progress Note REPORT#:[id number] REPORT STATUS: Signed DATE:07/12/22 TIME: 1332 PATIENT: SHERRI ARCE UNIT #: [id number] ROOM/BED: [place] [address] : 42 AGE: 81 SEX: M ATTEND: Sam Mcarthur MD ADM AUTHOR: Sarbjit Mcarthur MD * ALL edits or amendments must be made on the [email or web address] document * Subjective Chief complaint: Status post CABG x5 on 07/09, Had HD this am. HPI: 81 y/o man with PMHx of HTN, Dyslipidemia [facility] with chest pain and found to have a NSTEMI and also acute renal failure. Underwent cardiac c ath yesterday and found to have severe CAD including left main disease. Transfer here f or CABG evaluation. He also underwent HD Thursday and Thursday of this week. HD catheter was place at [facility]. Currently not having any chest pain. Had chest pain with SOB when he presentted to the previous hospital. Objective General VS/I O: Vital Signs: Date Time Temp Pulse Resp B/P B/P Pulse O2 O2 Flow FiO2 Mean Ox Delivery Rate 07/12 1217 95 High flow 7 nasal cannula 07/12 1202 97.8 76 24 134/52 94 Nasal 7 cannula 07/12 1054 82 24 139/53 74 91 07/12 1030 139/53 74 07/12 1030 81 27 105/59 77 93 02/04 1000 152/57 81 / 1000 85 63 113/64 84 99 02/04 0930 146/56 78 02/04 0930 84 25 125/64 88 95 02/04 0900 148/59 80 02/04 0900 79 19 111/57 79 98 02/04 0858 98 High flow 7 nasal cannula 02/04 0857 97.5 71 27 136/58 97 Nasal 7 cannula 02/04 0830 92/35 50 02/04 0830 78 28 90/53 66 96 02/04 0800 131/56 77 02/04 0800 71 26 105/63 79 96 02/04 0627 72 28 137/53 74 100 02/04 0600 133/53 74 02/04 0600 74 27 112/61 81 100 02/04 0530 120/45 62 02/04 0530 54 30 101/53 73 98 02/04 0500 125/47 65 02/04 0500 56 26 108/60 78 96 02/04 0430 133/49 67 02/04 0430 56 30 112/55 77 97 02/04 0400 128/47 66 02/04 0400 57 28 113/56 78 96 02/04 0342 98 Nasal 6 cannula 02/04 0330 134/50 68 02/04 0330 56 25 108/59 80 100 02/04 0300 140/53 73 02/04 0300 57 29 118/59 83 98 02/04 0230 130/51 68 02/04 0230 57 28 105/58 79 98 02/04 0200 128/51 67 02/04 0200 57 26 108/58 79 98 02/04 0130 133/54 72 02/04 0130 59 29 114/60 78 97 02/04 0100 138/55 72 02/04 0100 57 30 110/59 79 97 02/04 0031 106/45 60 02/04 0031 61 41 86/51 63 86 02/04 0030 60 34 92/44 57 87 02/04 0000 127/51 68 02/04 0000 60 27 109/57 77 89 02/03 2330 133/55 72 02/03 2330 61 24 127/58 78 89 02/03 2300 142/60 80 02/03 2300 75 26 118/66 86 90 02/03 2230 134/57 76 02/03 2230 71 26 112/61 80 93 02/03 2200 132/55 73 02/03 2200 72 24 111/59 78 93 02/03 2130 145/57 77 02/03 2129 73 26 112/58 79 96 02/03 2100 141/56 76 02/03 2100 75 29 113/56 79 95 02/03 2029 121/48 64 02/03 2029 57 24 107/56 75 92 02/03 6 93 High flow 6 nasal cannula 02/1999 131/48 65 02/03 1999 98.4 55 26 111/56 77 94 02/03 1930 High flow 6 nasal cannula 02/03 1930 133/49 67 02/03 1930 54 28 111/59 81 93 02/03 1900 55 31 103/57 73 94 02/03 1845 70 25 151/55 78 97 02/03 1830 71 27 122/58 84 95 02/03 1800 98.6 71 29 140/51 72 93 02/03 1745 98.6 71 30 148/52 74 94 02/03 1730 98.6 70 29 148/53 76 93 02/03 1715 98.8 70 29 149/54 77 96 02/03 1700 98.8 77 34 151/58 82 95 02/03 1645 98.8 71 21 148/56 79 95 02/03 1630 98.8 69 27 137/51 71 97 02/03 1615 98.6 71 27 127/48 66 98 02/03 1600 98.6 72 26 147/55 77 98 02/03 1545 98.6 74 32 159/56 80 97 02/03 1530 98.2 73 26 115/58 75 02/03 1515 98.2 76 33 106/60 77 02/03 1500 81 50 02/03 1445 78 34 02/03 1430 76 31 02/03 1415 98.8 75 27 116/57 76 91 02/03 1400 99.0 73 28 123/63 87 93 02/03 1345 99.0 73 28 113/55 74 94 24 hour I O ending at 0700: /04 0700 02/03 1900 Intake Total 574.00 1350.00 Output Total 1420 410 Balance -846.00 940.00 Intake, IV 334.00 350.00 Intake, Oral 240 1000 Number 1 Bowel Movements Output, Chest 20 350 Tube Drainage Output, Urine 1400 60 Patient 94.1 kg Weight Weight Standing scale Measurement Method PATIENT WEIGHT: Weight (lb): 207 Weight (oz): 7.28 Weight (kg): 94.100 Physical Exam General appearance: sleeping comfortably Head/Eyes: atraumatic, EOMI, normal conjunctiva/ sclera, normocephalic, PERRLA ENT: moist mucosal membranes Neck: full range of motion, no bruit/NL carotids , no JVD Cardiovascular: normal heart sounds, regular rat e rhythm Respiratory: aerating well, clear to auscultatio n, symmetric expansion, no distress Abdomen: non-tender, normal bowel sounds , soft, no distention, no guarding, no rebound Extremities: moves all, no cyanosis, no edema Musculoskeletal: normal inspection 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ALTH: alert, oriented X 3, normal speech, n o motor deficits, no sensory deficits Skin: intact, normal color, no rash Psychiatry: normal affect Results Findings/Data: Laboratory Tests 07/12 07/11 0412 1551 Blood Gas Puncture Site Art Line Art Line O2 Saturation (90 - 100 %) 89.5 L 95.2 ABG pH (7.35 - 7.45) 7.371 7.347 L ABG pCO2 (35.0 - 45 mmHg) 34.5 L 37.9 ABG pO2 (80 - 100.0 mmHg) 58.5 L 80.5 ABG HCO3 (22.0 - 26.0 MMOL/L) 20.0 L 20.8 L ABG Total CO2 21.1 22.0 ABG Base Excess (-4.0 - 4.0 MMOL/L) -5.3 L -4.8 L ABG Hematocrit (37.5 - 50.7 %) 27 L 27 L ABG Hemoglobin (12.5 - 16.9 G/DL) 9.2 L 9.3 L Marylu Test N/A Sodium (134 - 147 mmol/L) 130 L 131 L Potassium (3.4 - 5.0 mmol/L) 5.4 H 5.5 H Chloride (100 - 108 mmol/L) 100 102 Ionized Calcium (1.12 - 1.32 MMOL/L) 1.19 1.24 Lactic Acid (0.9 - 1.7 mmol/l) 0.6 L 1.1 Temperature (F) 98.6 O2 Delivery Device HFNC Cannula Laboratory Tests 07/12 07/12 07/12 07/11 07/11 1150 0412 0407 2219 2028 Chemistry Sodium (134 - 147 mEq/L) 137 132 L 134 Potassium (3.4 - 5.0 mEq/L) 3.4 5.4 H 5.1 H Chloride (100 - 108 mEq/L) 102 101 103 Carbon Dioxide (21 - 33 mEq/l) 29 21 21 Anion Gap (0 - 20) 9 15 15 BUN (7 - 18 mg/dL) 22 H 47 H 38 H Creatinine (0.6 - 1.3 mg/dL) 2.1 H 4.3 H 3.9 H POC Creatinine (0.8 - 1.3 mg/dL) 4.5 H Glomerular Filtr Rate (70 - 80) 31.4 L 13.3 L 1 5.0 L Glucose (70 - 110 mg/dL) 104 118 H 100 POC Glucose (70 - 110 MG/DL) 122 H POC Glucose (mg/dL) (70 - 110 MG/DL) 130 H Calcium (8.0 - 10.5 mg/dL) 8.2 8.6 8.6 Ionized Calcium Tenzin (1.09 - 1.30 1.12 1.09 MMOL/L) Magnesium (1.80 - 2.40 mg/dL) 2.03 2.69 H 07/11 07/11 1551 1545 Chemistry Sodium (134 - 147 mEq/L) 132 L Potassium (3.4 - 5.0 mEq/L) 5.3 H Chloride (100 - 108 mEq/L) 102 Carbon Dioxide (21 - 33 mEq/l) 22 Anion Gap (0 - 20) 13 BUN (7 - 18 mg/dL) 44 H Creatinine (0.6 - 1.3 mg/dL) 3.8 H POC Creatinine (0.8 - 1.3 mg/dL) 3.8 H Glomerular Filtr Rate (70 - 80) 15.4 L Glucose (70 - 110 mg/dL) 156 H POC Glucose (mg/dL) (70 - 110 MG/DL) 159 H Calcium (8.0 - 10.5 mg/dL) 8.9 Ionized Calcium Tenzin (1.09 - 1.30 MMOL/L) 1.17 Phosphorus (2.5 - 4.9 MG/DL) 3.9 Magnesium (1.80 - 2.40 mg/dL) 2.72 H Laboratory Tests 07/12 07/12 07/11 1150 0407 2220 Hematology WBC (4.5 - 11.0 x10 3/uL) 16.3 H 17.0 H RBC (4.00 - 5.60 x10 6/uL) 2.72 L 2.85 L Hgb (12.5 - 16.9 g/dL) 8.3 L 8.6 L 8.1 L Hct (37.5 - 50.7 %) 25.5 L 26.9 L 25.4 L MCV (81.0 - 99.0 fL) 93.8 94.4 MCH (27.0 - 33.0 pg) 30.5 30.2 MCHC (33.0 - 37.0 g/dL) 32.5 L 32.0 L RDW (11.5 - 14.5 %) 17.0 H 17.3 H Plt Count (150 - 400 x10 3/uL) 134 L 130 L MPV (7.0 - 9.0 fL) 11.5 H 11.6 H Neut % (Auto) (56.0 - 77.0 %) 85.0 H 83.2 H Lymph % (Auto) (14.0 - 32.0 %) 3.6 L 4.8 L [place] % (Auto) (4.8 - 9.0 %) 5.3 6.5 Eos % (Auto) (0.3 - 3.7 %) 4.4 H 4.1 H Baso % (Auto) (0.0 - 2.0 %) 0.4 0.5 Neut # (Auto) (2.0 - 7.6 x10 3/uL) 13.83 H 14.1 3 H Lymph # (Auto) (1.0 - 3.8 x10 3/uL) 0.59 L 0.81 L [place] # (Auto) (0.1 - 0.8 x10 3/uL) 0.87 H 1.10 H Eos # (Auto) (0.0 - 0.2 x10 3/uL) 0.72 H 0.70 H Baso # (Auto) (0.0 - 0.2 x10 3/uL) 0.07 0.09 Abs Immat Gran (auto) (0.00 - 0.03 x10 3/uL) 0. 21 H 0.15 H Add Manual Diff NO NO Immature Gran % (0.0 - 2.0 %) 1.3 0.9 Nucleated RBC % (0 - 0 %) 0.0 0.0 Nucleated RBCs # (Man) (0.0 - 0.1 x10 3/uL) 0.0 0 0.00 Radiology data: Recent Impressions: RADIOLOGY - XR CHEST 1 V 07/12 0607 Report Impression - Status: SIGNED Entered: 07/12/2022 8262 IMPRESSION: 1. Small bilateral pleural effusions. 2. Moderate to severe enlarged cardiac silhouett e. 3. [id number] pulmonary edema versus infil trates. Improvement. Impression By: [email or web address] - Manuel Vega M.D. Diagnosis, Assessment Plan Consultants: cardiology, cardiovascular surgery, nephrology Free Text DxA P Notes Free text DxA P notes: Assessment and plans: CAD (coronary artery disease) patient presented with NSTEMI and found to hve severe CAD. Cardiac cath shows: Left Main - Distal 70% LAD - Proximal 80% with another 60% and 70% les sions Cir - Proximal 80%,mid 80-90%, Distal 70% and O M 60% RCA - large dominant with proximal 40%, Mid 60% . Cardiology and CV surgeon consulted echo: ef 30-34%, mod hypokinesis of entire myoc ardium, grade 1 diastolic dysfunction Carotid Dopplers negative PFTs PT/OT s/p CABG X5 on 07/08 Patient on ASA, plavix, BB and Statin on amiodarone Beta-tomas as tolerated for low BP, - on EPI and vasopressine drip Acute systolic heart failure Echocardiac with estimated LVEF of 30 to 34% wi th grade 1 diastolic dysfunction -s/p Lasix 20 mg twice daily 07/05 -on metoprolol 12.5 mg bid on hold now, BP low -no ACEI/ spironolactione for CLAUDETTE -Strict I's and O's, daily weights -Start GDMT prior to discharge CLAUDETTE (acute kidney injury) No prior Hx of renal disease. hx of BPH and casimiro ated with Fosamax w/o improvement nd continue to h ave difficulty urinating. On admission was found to be on acute renal filaure and had received HD tw ice prior to arrival here ( thursday and thursday). Creatinine this am was 7.4, BUN 68 * Probably due to obstructive uropathy * waters already in place * Nephrology consuled for HD On daily hemodialysis as per nephrology Anemia: -Hemoglobin dropped to 6.5 s/p CABG 2 PRBC BT ordered 07/09 Monitor H H Leukocytosis: -Afebrile Monitor WBC count HTN (hypertension) patient on metoprolol 12.5 mg BID, will adjust as needed On labetalol/hydralazine as needed Dyslipidemia on Lipitor 40mg po daliy. BPH (benign prostatic hyperplasia) Started on Flomax at the previous hospital, thais l continue with it. Waters catheter in place, continue Waters cathete r as per nephrology 07/05 Goiter Hx of Goiter and surgical resection. TSH 3.33, within normal limits. Patient is not on Thyroid medication. anemia of chronic kidney disease Hemoglobin 8.3, monitor Hypokalemia resolved UTI continue Rocephin for empiric treatment pend ing results of urine culture No growth for 48 hours DVT prophylaxis: Heparin 5000 units every 8 hour s Diet: Cardiac diet CODE STATUS: Full code Disposition: Status post CABG x5 on 07/09, hemodia lysis as per nephrology. Worked with PT in his room, on 2 L oxygen via na cj cannula. PT/OT on board. Rehab consulted. Continue CVICU care. Quality: Gen Med Crit Care VTE Prophylaxis VTE prophylaxis initiated: yes Current Medications Current medication review: I attest that the foregoing medication list in t he medical record is true, accurate, and complete to the best of my knowled ge. Advanced Care Plan 65 or Older Discussed with: patient Discussion included: living will (none), power of employment law attorney (none), code status ( full code) at 1337 RPT #:[id number] END OF REPORT 2022-07-12 11:14:00-00:00 [facility] Progress Note REPORT#:[id number] REPORT STATUS: Signed DATE:07/12/22 TIME: 1114 PATIENT: SHERRI ARCE UNIT #: [id number] ROOM/BED: [place] [address] : 42 AGE: 81 SEX: M ATTEND: Sam Mcarthur MD ADM AUTHOR: Evelina Plaza MD * ALL edits or amendments must be made on the [email or web address] document * Subjective Chief complaint: has no complaints. Objective General VS/I O: Vital Signs: Date Time Temp Pulse Resp B/P B/P Pulse O2 O2 F low FiO2 Mean Ox Delivery Rate 02/ 1054 82 24 139/53 74 91 02/04 1030 139/53 74 02/04 1030 81 27 105/59 77 93 02/04 1000 152/57 81 02/04 1000 85 63 113/64 84 99 02/04 0930 146/56 78 02/04 0930 84 25 125/64 88 95 02/04 0900 148/59 80 02/04 0900 79 19 111/57 79 98 02/04 0858 98 High flow 7 nasal cannula 02/04 0857 97.5 71 27 136/58 97 Nasal 7 cannula 02/04 0830 92/35 50 02/04 0830 78 28 90/53 66 96 02/04 0800 131/56 77 02/04 0800 71 26 105/63 79 96 02/04 0627 72 28 137/53 74 100 02/04 0600 133/53 74 02/04 0600 74 27 112/61 81 100 02/04 0530 120/45 62 02/04 0530 54 30 101/53 73 98 02/04 0500 125/47 65 02/04 0500 56 26 108/60 78 96 02/04 0430 133/49 67 02/04 0430 56 30 112/55 77 97 02/04 0400 128/47 66 02/04 0400 57 28 113/56 78 96 02/04 0342 98 Nasal 6 cannula 02/04 0330 134/50 68 02/04 0330 56 25 108/59 80 100 02/04 0300 140/53 73 02/04 0300 57 29 118/59 83 98 02/04 0230 130/51 68 02/04 0230 57 28 105/58 79 98 02/04 0200 128/51 67 02/04 0200 57 26 108/58 79 98 02/04 0130 133/54 72 02/04 0130 59 29 114/60 78 97 02/04 0100 138/55 72 02/04 0100 57 30 110/59 79 97 02/04 0031 106/45 60 02/04 0031 61 41 86/51 63 86 02/04 0030 60 34 92/44 57 87 02/04 0000 127/51 68 02/04 0000 60 27 109/57 77 89 02/03 2330 133/55 72 02/03 2330 61 24 127/58 78 89 02/03 2300 142/60 80 02/03 2300 75 26 118/66 86 90 02/03 2230 134/57 76 02/03 2230 71 26 112/61 80 93 02/03 2200 132/55 73 02/03 2200 72 24 111/59 78 93 02/03 2130 145/57 77 02/03 2130 73 26 112/58 79 96 02/03 2100 141/56 76 02/03 2100 75 29 113/56 79 95 02/03 2030 121/48 64 02/03 2030 57 24 107/56 75 92 02/03 2026 93 High flow 6 nasal cannula 02/03 1999 131/48 65 02/03 1999 98.4 55 26 111/56 77 94 02/03 1930 High flow 6 nasal cannula 02/03 1930 133/49 67 02/03 1930 54 28 111/59 81 93 02/03 1900 55 31 103/57 73 94 02/03 1845 70 25 151/55 78 97 02/03 1830 71 27 122/58 84 95 02/03 1800 98.6 71 29 140/51 72 93 02/03 1745 98.6 71 30 148/52 74 94 02/03 1730 98.6 70 29 148/53 76 93 02/03 1715 98.8 70 29 149/54 77 96 02/03 1700 98.8 77 34 151/58 82 95 02/03 1645 98.8 71 21 148/56 79 95 02/03 1630 98.8 69 27 137/51 71 97 02/03 1615 98.6 71 27 127/48 66 98 02/03 1600 98.6 72 26 147/55 77 98 02/03 1545 98.6 74 32 159/56 80 97 02/03 1530 98.2 73 26 115/58 75 02/03 1515 98.2 76 33 106/60 77 02/03 1500 81 50 02/03 1445 78 34 02/03 1430 76 31 02/03 1415 98.8 75 27 116/57 76 91 02/03 1400 99.0 73 28 123/63 87 93 02/03 1345 99.0 73 28 113/55 74 94 02/03 1330 99.0 73 29 119/63 86 94 02/03 1315 99.0 73 28 119/56 75 96 02/03 1300 99.0 72 30 118/60 83 95 02/03 1245 99.0 71 27 116/53 72 95 02/03 1230 99.0 66 24 98/57 74 97 02/03 1215 99.0 66 30 96 02/03 1200 99.0 69 32 91/50 64 96 02/03 1145 99.0 77 29 110/47 75 93 02/03 1130 99.0 77 28 111/60 81 95 24 hour I O ending at 0700: 02/04 0700 02/03 1900 Intake Total 574.00 1350.00 Output Total 1420 410 Balance -846.00 940.00 Intake, IV 334.00 350.00 Intake, Oral 240 1000 Number 1 Bowel Movements Output, Chest 20 350 Tube Drainage Output, Urine 1400 60 Patient 94.1 kg Weight Weight Standing scale Measurement Method PATIENT WEIGHT: Weight (lb): 207 Weight (oz): 7.28 Weight (kg): 94.100 Medications Active Meds + DC'd Last 24 Hrs Midodrine (PROAMATINE) 5 MG 0900,1300,1700 PO Sodium Bicarbonate (SODIUM BICARBONATE) 650 MG B ID PO Dextrose/Water (DEXTROSE 50% W SYRINGE) 50 ML ON CE ONE IV (DC) Insulin Human Regular (HUMAN INSULIN REG) 10 UNI TS STAT STA IV (DC) Ipratropium Kersey (ATROVENT) 500 MCG RTQ2H PRN PRN INH Albumin Human (ALBUMINAR 5% 12.5GM/250ML) 250 ML ONCE ONE IV (DC) Albumin Human (ALBUMINAR 5% 12.5GM/250ML) 250 ML ONCE ONE IV (DC) Furosemide (LASIX 40 mg/4 mL INJECTION) 80 MG ON CE ONE IV (DC) Midodrine (PROAMATINE) 2.5 MG 0900,1300,1700 PO (DC) Furosemide (LASIX 40 mg/4 mL INJECTION) 60 MG ON CE ONE IV (DC) Lactulose (LACTULOSE) 20 GM DAILY PRN PRN PO Cyanocobalamin (Vitamin B-12 500 mcg tab) 500 MC G DAILY PO Ferrous Sulfate (FERROUS SULFATE) 325 MG DAILY P O Dopamine HCl/Dextrose (DOPamine 400MG/D5W 250ML) 250 ML ASDIR IV Bisacodyl (DULCOLAX) 10 MG ONCE PRN RECTAL Insulin Human Lispro (HUMALOG) 0 AC HS SUBQ (DC) Atorvastatin Calcium (LIPITOR) 40 MG 2100 PO Clopidogrel Bisulfate (Plavix) 75 MG DAILY PO Polyethylene Glycol (MIRALAX) 17 GM DAILY PO Miscellaneous Information (PHARMACY TO DOSE/EVAL UATE) 1 EACH ASDIR MISC Calcium Chloride (CALCIUM CHLORIDE) 1 GM ASDIR P RN IV Sodium Chloride (SODIUM CHLORIDE 0.9%) 100 ML Calcium Chloride (CALCIUM CHLORIDE) 2 GM ASDIR P RN IV Sodium Chloride (SODIUM CHLORIDE 0.9%) 100 ML Magnesium Sulfate (MAGNESIUM SULFATE 4GM/SWFI 10 0ML) 100 ML ASDIR PRN IV Magnesium Sulfate (MAGNESIUM SULFATE 2GM/SWFI 50 ML) 50 ML ASDIR PRN IV Miscellaneous (PRISMASATE BGK 4/2.5 SOLUTION) 5, 000 ML ASDIR DIALYSIS Potassium Chloride (KCL 10MEQ/SWFI 50ML) 50 ML A SDIR PRN IV Sodium Chloride (SODIUM CHLORIDE 0.9%) 2,000 ML ASDIR PRN IV Sodium Phosphate (SODIUM PHOSPHATE) 25 MMOL ASDI R PRN IV Sodium Chloride (SODIUM CHLORIDE 0.9%) 250 ML Sodium Phosphate (SODIUM PHOSPHATE) 20 MMOL ASDI R PRN IV Sodium Chloride (SODIUM CHLORIDE 0.9%) 250 ML Sodium Phosphate (SODIUM PHOSPHATE) 15 MMOL ASDI R PRN IV Sodium Chloride (SODIUM CHLORIDE 0.9%) 250 ML Pantoprazole (PROTONIX) 40 MG DAILY@0600 PO Aspirin (ASPIRIN) 81 MG DAILY PO Vasopressin (VASOSTRICT 20 Unit/NS 100ML) 100 ML ASDIR IV (CKD) Amiodarone HCl (CORDARONE) 200 MG TID PO Docusate Sodium (COLACE) 100 MG BID PO Gabapentin (NEURONTIN) 200 MG BID PO Metoprolol Tartrate (LOPRESSOR) 12.5 MG Q12HR PO (DC) Mupirocin (BACTROBAN 2% 22 GM OINTMENT) 1 APPLIC BID NASAL Sennosides (Senna Lax 8.6 MG TABLET) 17.2 MG BED TIME PO Ipratropium Kersey (ATROVENT) 500 MCG RTQ4H INH Acetaminophen (TYLENOL) 650 MG Q4H PRN PRN PO Acetaminophen (TYLENOL) 650 MG Q4H PRN PRN RECTA L Calcium Chloride (CALCIUM CHLORIDE) 1 GM ASDIR P RN IV Dextrose/Water (DEXTROSE 10% IN WATER) 125 ML DIR PRN IV (CKD) Dextrose/Water (DEXTROSE 10% IN WATER) 250 ML DIR PRN IV (CKD) Epinephrine (ADRENALIN CHLORIDE) 4 MG ASDIR IV Dextrose/Water (DEXTROSE 5% WATER) 246 ML Glucagon (GLUCAGON) 1 MG ASDIR PRN IM Magnesium Sulfate (MAGNESIUM SULFATE 4GM/SWFI 10 0ML) 100 ML ASDIR PRN IV Magnesium Sulfate (MAGNESIUM SULFATE 2GM/SWFI 50 ML) 50 ML ASDIR PRN IV Magnesium Sulfate/Dextrose (MAGNESIUM SULFATE 1G M/D5W 100ML) 100 ML ASDIR PRN IV Nitroglycerin/Dextrose (NITROGLYCERIN 50,000MCG/ D5W 250ML) 250 ML ASDIR IV Norepinephrine Bitartrate (NOREPINEPHRINE 8 MG/N S 250 ML) 250 ML TITRATE IV Ondansetron HCl (ZOFRAN) 4 MG Q6H PRN PRN IV Oxycodone HCl (ROXICODONE) 5 MG Q4H PRN PRN PO Oxycodone HCl (ROXICODONE) 10 MG Q4H PRN PRN PO Potassium Chloride (KCL 20MEQ/SWFI 100ML) 100 ML ASDIR PRN IV Sodium Bicarbonate (SODIUM BICARBONATE) 50 MEQ A SDIR PRN IV Sodium Chloride (SODIUM CHLORIDE 0.9%) 1,000 ML .Q20H IV (DC) Sodium Chloride (SODIUM CHLORIDE 0.9%) 250 ML Q2 4H IV Albumin Human (ALBUMINAR-25%) 12.5 GM ASDIR PRN IV Heparin Sodium (Porcine) (HEPARIN SODIUM) 3,000 UNIT ASDIR PRN DIALYSIS Lidocaine HCl (LIDOCAINE HCL/PF) 0.5 ML ASDIR NV N I-DERMAL (CKD) Mannitol (Mannitol 20%) 12.5 GM ASDIR PRN IV Sodium Chloride (SODIUM CHLORIDE 0.9%) 2,000 ML ASDIR PRN IV Tamsulosin HCl (Flomax 0.4 mg) 0.4 MG BEDTIME PO Physical Exam General appearance: alert, awake, oriented Head/eyes: atraumatic, normocephalic ENT: moist mucous membranes, normal nose Neck: non-tender, no JVD Extremities: no edema, no swelling 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ALTH: alert, oriented X 3, normal speech Skin: dry, intact Results Findings/Data: Laboratory Tests 07/12 07/11 0412 1551 Blood Gas Puncture Site Art Line Art Line O2 Saturation (90 - 100 %) 89.5 L 95.2 ABG pH (7.35 - 7.45) 7.371 7.347 L ABG pCO2 (35.0 - 45 mmHg) 34.5 L 37.9 ABG pO2 (80 - 100.0 mmHg) 58.5 L 80.5 ABG HCO3 (22.0 - 26.0 MMOL/L) 20.0 L 20.8 L ABG Total CO2 21.1 22.0 ABG Base Excess (-4.0 - 4.0 MMOL/L) -5.3 L -4.8 L ABG Hematocrit (37.5 - 50.7 %) 27 L 27 L ABG Hemoglobin (12.5 - 16.9 G/DL) 9.2 L 9.3 L Marylu Test N/A Sodium (134 - 147 mmol/L) 130 L 131 L Potassium (3.4 - 5.0 mmol/L) 5.4 H 5.5 H Chloride (100 - 108 mmol/L) 100 102 Ionized Calcium (1.12 - 1.32 MMOL/L) 1.19 1.24 Lactic Acid (0.9 - 1.7 mmol/l) 0.6 L 1.1 Temperature (F) 98.6 O2 Delivery Device HFNC Cannula Laboratory Tests 07/12 07/12 07/11 07/11 0412 0407 2219 2028 Chemistry Sodium (134 - 147 mEq/L) 132 L 134 Potassium (3.4 - 5.0 mEq/L) 5.4 H 5.1 H Chloride (100 - 108 mEq/L) 101 103 Carbon Dioxide (21 - 33 mEq/l) 21 21 Anion Gap (0 - 20) 15 15 BUN (7 - 18 mg/dL) 47 H 38 H Creatinine (0.6 - 1.3 mg/dL) 4.3 H 3.9 H POC Creatinine (0.8 - 1.3 mg/dL) 4.5 H Glomerular Filtr Rate (70 - 80) 13.3 L 15.0 L Glucose (70 - 110 mg/dL) 118 H 100 POC Glucose (70 - 110 MG/DL) 122 H POC Glucose (mg/dL) (70 - 110 MG/DL) 130 H Calcium (8.0 - 10.5 mg/dL) 8.6 8.6 Ionized Calcium Tenzin (1.09 - 1.30 MMOL/L) 1.09 Magnesium (1.80 - 2.40 mg/dL) 2.69 H 07/11 07/11 1551 1545 Chemistry Sodium (134 - 147 mEq/L) 132 L Potassium (3.4 - 5.0 mEq/L) 5.3 H Chloride (100 - 108 mEq/L) 102 Carbon Dioxide (21 - 33 mEq/l) 22 Anion Gap (0 - 20) 13 BUN (7 - 18 mg/dL) 44 H Creatinine (0.6 - 1.3 mg/dL) 3.8 H POC Creatinine (0.8 - 1.3 mg/dL) 3.8 H Glomerular Filtr Rate (70 - 80) 15.4 L Glucose (70 - 110 mg/dL) 156 H POC Glucose (mg/dL) (70 - 110 MG/DL) 159 H Calcium (8.0 - 10.5 mg/dL) 8.9 Ionized Calcium Tenzin (1.09 - 1.30 MMOL/L) 1.17 Phosphorus (2.5 - 4.9 MG/DL) 3.9 Magnesium (1.80 - 2.40 mg/dL) 2.72 H Laboratory Tests 07/12 07/11 0407 2220 Hematology WBC (4.5 - 11.0 x10 3/uL) 17.0 H RBC (4.00 - 5.60 x10 6/uL) 2.85 L Hgb (12.5 - 16.9 g/dL) 8.6 L 8.1 L Hct (37.5 - 50.7 %) 26.9 L 25.4 L MCV (81.0 - 99.0 fL) 94.4 MCH (27.0 - 33.0 pg) 30.2 MCHC (33.0 - 37.0 g/dL) 32.0 L RDW (11.5 - 14.5 %) 17.3 H Plt Count (150 - 400 x10 3/uL) 130 L MPV (7.0 - 9.0 fL) 11.6 H Neut % (Auto) (56.0 - 77.0 %) 83.2 H Lymph % (Auto) (14.0 - 32.0 %) 4.8 L [place] % (Auto) (4.8 - 9.0 %) 6.5 Eos % (Auto) (0.3 - 3.7 %) 4.1 H Baso % (Auto) (0.0 - 2.0 %) 0.5 Neut # (Auto) (2.0 - 7.6 x10 3/uL) 14.13 H Lymph # (Auto) (1.0 - 3.8 x10 3/uL) 0.81 L [place] # (Auto) (0.1 - 0.8 x10 3/uL) 1.10 H Eos # (Auto) (0.0 - 0.2 x10 3/uL) 0.70 H Baso # (Auto) (0.0 - 0.2 x10 3/uL) 0.09 Abs Immat Gran (auto) (0.00 - 0.03 x10 3/uL) 0. 15 H Add Manual Diff NO Immature Gran % (0.0 - 2.0 %) 0.9 Nucleated RBC % (0 - 0 %) 0.0 Nucleated RBCs # (Man) (0.0 - 0.1 x10 3/uL) 0.0 0 Radiology data: Recent Impressions: RADIOLOGY - XR CHEST 1 V 07/12 706 Report Impression - Status: SIGNED Entered: 07/12/2022 0737 IMPRESSION: 1. Small bilateral pleural effusions. 2. Moderate to severe enlarged cardiac silhouett e. 3. Awyp-er-seatevlv pulmonary edema versus infil trates. Improvement. Impression By: [email or web address] - Manuel Vega M.D. Diagnosis, Assessment Plan Free Text A P: Assessment: 1-CLAUDETTE likely from urinary retention. oliguric AK I now post op, from shock! 2- non-STEMI: multivessel disease w main left. 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 Waters catheter is in place. 4-severe bilateral hydronephrosis 5- shock : Cardiogenic 6-hyperlipidemia Plan: - unknown Scr baseline. - He underwent LHC on 07/03. Started on HD withou t UF on 07/04 for clearance - Ultrasound showed severe bilateral hydronephro sis. Continue Waters catheter. Urology consulted. - s/p CABG X5 on 07/08 - hemodynamic support, titrate vasopressors for MAP>65. - on dopamine to improve catherine al perfusion. increased UOP volume after lasix 60 + 80 + albumin + dopamine. - HD /. - BMP daily, if stable, then propably remove HD cath by Thursday. Discussed with patient and cardiothoracic surger y team Consultants: cardiology, cardiovascular surgery, nephrology Electronically Signed by Evelina Plaza MD on 09/28 at 1116 RPT #:[id number] END OF REPORT 2022-07-12 10:15:00-00:00 [facility] Cardiothoracic Surgery Prog REPORT#:[id number] REPORT STATUS: Signed DATE:07/12/22 TIME: 1015 PATIENT: SHERRI ARCE UNIT #: [id number] ROOM/BED: [place] [address] : 42 AGE: 81 SEX: M ATTEND: Sam Mcarthur MD ADM AUTHOR: Gianna Hoover * ALL edits or amendments must be made on the [email or web address] document * General Post-op: day 4 Status post: 07/08/22 CABG x 5 (MISTRY-LAD, SVG-Ladonna, SVG-OM1< SVG-OM3, SVG-PDA) ALAA EVH (RGSV) Subjective Chief complaint: Chest Pain Pre CABG eval s/p CABG no complaints Review of Systems Constitutional: Denies: chills, fever, malaise. Allergy/Immun: Denies: allergic reaction. Respiratory: Denies: SOB. Cardiovascular: Denies: chest pain, palpitations. GI: Denies: abdominal pain, nausea, vomiting. : Denies: dysuria, hematuria. Heme: Denies: bleeding. Neuro: Denies: dizziness, headache, vision change. All systems rev neg: except as marked Objective General VS/I O Last Documented: Result Date Time Pulse Ox 97 07/12 856 B/P 136/58 07/12 856 O2 Delivery Nasal cannula 07/12 856 O2 Flow Rate 7 07/12 856 Temp 97.5 07/12 856 Pulse 71 07/12 0757 Resp 27 07/12 856 B/P Mean 74 07/12 0627 FiO2 50 07/08 1918 24 hour I O ending at 0700: 07/12 0700 07/11 1900 Intake Total 574.00 1350.00 Output Total 1420 410 Balance -846.00 940.00 Intake, IV 334.00 350.00 Intake, Oral 240 1000 Number 1 Bowel Movements Output, Chest 20 350 Tube Drainage Output, Urine 1400 60 Patient 94.1 kg Weight Weight Standing scale Measurement Method PATIENT WEIGHT: Weight (lb): 207 Weight (oz): 7.28 Weight (kg): 94.100 Physical Exam General appearance: alert, awake, oriented Wound/incision: Location: sternal Site condition: dressing clean dry, dressing in tact HEENT: anicteric, mucosal membranes moist Neck: supple/no meningismus Cardiovascular: normal heart sounds, regular rat e rhythm Respiratory: aerating well, symmetric expansion, no distress Abdomen: soft, non-tender, no distention Genitourinary: waters, oN hd Extremities: moves all 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ALTH: alert, oriented X 3, normal speech, n o motor deficits Psychiatry: normal affect, normal mood Quality: Trauma Gen Surg Advanced Care Plan 65 or Older Discussed with: patient Discussion included: living will (none), power of employment law attorney (none), code status ( full code) VTE Prophylaxis - General VTE prophylaxis initiated: yes Diagnosis, Assessment Plan Hospital course to date: This is a 81-year-old gentleman who presented to an outside hospital with complaints of chest pains while walking at his home on Thursday. He denies any previous history of coronary artery disease or o ther NE. He was seen and evaluated at [facility]. He was found to have a urinary tract infection with urinary retention and acute kidne y. He was started on dialysis via a left femoral temporary catheter. He underw ent dialysis on Thursday, Thursday. Renal has been consulted During his work-up at outside hospital he underw ent Left heart catheterization showing sever e Left Main 70%. LAD: Proximal diffuse 80% stenosis and then diffuse 60% in the midsegment and on the distal segment, there is focal 70% stenosis. Diagonal branches w ith luminal irregularities. Left circumflex, codominant circulation with pro ximal 80%, mid 80 to 90% and then in the OM, there is proximal 60%, distal le ft circumflex has a 70% stenosis. RCA large and dominant with proximal 4 0% stenosis, mid 60% stenosis and then diffuse 50% stenosi s all the way distally and the PLV and the PDA with luminal irregularities. CV surgery consulted for evaluation for coronary bypass graft. CAROTIDS - No carotid stenosis CT chest complete IMPRESSION: Small bilateral pleural effusions with bibasila r atelectasis. Echo: 1. Left ventricle: The cavity size is at the upp er limits of normal. Wall thickness is mildly increased. Systolic fu nction is severely reduced. The estimated ejection fraction is 30- 34%. Moderate hypokinesis of the entire myocardium. Doppler p arameters are consistent with abnormal left ventricular relax ation (grade 1 diastolic dysfunction). 2. Pericardium, extracardiac: A small pericardia l effusion is identified along the left ventricular free wall, along the right ventricular free wall, and along the right atrial free wall . Assessment/Plan 1) CAD Mutlivessel Will obtain echo,carotids. 2) CLAUDETTE Started dialysis on Creatine 7.3 Renal consulted. 3) BPH- Urinary retention. Waters in place Workup for CABG underway. Will get functional assessment with PT. PFT pending Carotid dopplers- No disease Echo Pending Dialyiss per Renal. Baseline Cr unknown. 07/04 07/04 Doing well today, alert, up in the chair. Denies chest pain Echocardiogram showed LVEF 30 to 34%, mild MR, t rivial TR CT chest images reviewed Encourage I-S and mobilization Creatinine 5.5 from 7.3, good urine output. Pao l US showed bilateral severe hydronephrosis. Plan for HD today and tomorrow Will tentatively schedule patient for surgery on Thursday. Patient seen and plan reviewed with Dr Schwarz 07/05 Remains in a stable condition, denies chest pain BUN 53, creatinine 5.4. Plan for hemodia lysis today and tomorrow for clearance He is also on Lasix 20 mg IV twice daily, urine output 1.1 L overnight We will calculate risk of surgery with STS score Encourage I-S and mobilization Will tentatively schedule patient for surgery on Thursday. Pt seen and plan reviewed with Dr Schwarz 07/06 BUN 36, creatinine 4.4. Plan for hemodialysis to day Awaiting CABG tomorrow Surgery, risks involved, STS score, benefits, co mplications and alternatives were explained to the patient. He acknow ledged understanding and is willing to proceed N.p.o. after midnight Patient seen and plan reviewed with Dr. Schwarz 07/09/22 POD 1 CABG x 5 (MISTRY-LAD, SVG-Ladonna, SVG-OM1< SVG-OM3, S VG-PDA), ALAA, EVH (RGSV) Patient hemodynamically unstable, on epi at 4, a nd vaso .04, decreased uop overnight- 150cc Started patient on CRRT 2k/3.5 Wean epi as tolerated, Cardiac incex 2.8-3 labs and chest x-ray reviewed, electroly marcie stable, hgb 6.5- transfuse 2 units PRBC On 4l nasal cannula- encourage incentive spirome ter and deep breathing Keep both chest tubes and monitor outputs Glycemic control on insulin drip Cardiac diet Bowel regimen protocol Pain management SCDs for DVT and PPI for GI prophylaxis PT/OT Monitor patient closely in CVICU Plan of care discussed with Dr. Schwarz 07/10/22 POD 2 Patient alert, awake, and oriented, no distres n oted labs and CXR reviewed stable Breathing comfortably on 3l nasal cannula- wean as tolerated to melissa O2 sats > 92 % Encourage I-S use and deep breathing On CRRT- able to remove 2.9L overnight- nephrolo gy following Cardiac index 3.1- wean off epi drip Keep chest tubes for now and monitor outputs Transition to sliding scale insulin- cardiac t Try to get patient out of bed to chair today- am bulate with PT/OT SCDs for DVT prophylaxis Keep patient in CVICU for close monitoring 07/11/22 POD 3 Patient in stable condition, overnight e vents noted- decreased urine output 35 ml last night-started on dopamine gtt for renal perfusion Cardiac index 3.5- epi currently at 2- will disc ontinue today, vasopressin at 0.02, added low dose midodrine 2.5 mg TID, repea t echocardiogram. Renal Following- trial Lasix Patient has Left femoral tem p dialysis cath, Will need tunneled dialysis IJ cath placed if need dialysis. On 5l nasal cannula- wean off as tolerat ed, encourage incentive spirometer and deep breathing Keep left pleural chest tube and monitor output- > 200 cc Tolerating diet, bowel regimen protocol PT/OT- patient out of bed to chair today- encour age ambulation DVT prophylaxis with SCDs Monitor patient closely in CVICU Plan discussed with multidisciplinary team Plan discussed with Dr Schwarz/ Dr Rodríguez 07/12/22 POD 5, Patient resting comfortable. Patient with hx of urinary r etention- After standing today- voided 1.4 L. Needs Urology consult for retention K 5.4- HD in progress. Dr Plaza following. CT output 20- DC today. Pacers remain in place. Patient has Left femoral tem p dialysis cath, Re-evaluate on Thursday if ocean transportation intermediary dialysis needed. Card: Remains in sinus rhythm. Respir: on 7 L NC O2 95% Dispo: Rehab consulted Patient seen and exmained by Dr Rodríguez. Plan discussed with Team Consultants: cardiology, cardiovascular surgery, nephrology Electronically Signed by Gianna Hoover PA on 0 07/12/22 at 1023 at 1950 RPT #:[id number] END OF REPORT 2022-07-12 09:56:00-00:00 [facility] Progress Note REPORT#:[id number] REPORT STATUS: Signed DATE:07/12/22 TIME: 955 PATIENT: SHERRI ARCE UNIT #: [id number] ROOM/BED: [place] [address] : 42 AGE: 81 SEX: M ATTEND: Sam Mcarthur MD ADM AUTHOR: Carolyn Penny NP * ALL edits or amendments must be made on the [email or web address] document * Subjective Chief complaint: Doing okay. Patient reports: No: chest pain, palpitations, shortness of breat h. Nursing reports: No: complaints. Comments: Patient is in bed, supine, on 3 L nasal cannula. Is on dialysis-attempt to remove 1.5 L - no u/o. Telemetry shows normal sinus rhythm. Patient is on dopamine 2 mcg/kg/min and vasopres sin 0.03 units/min-for hypotension. Objective General VS/I O: 24 hour I O ending at 0700: 02/ 1900 / 0700 Intake Total 1350.00 574.00 Output Total 410 1420 Balance 940.00 -846.00 Intake, IV 350.00 334.00 Intake, Oral 1000 240 Number 1 Bowel Movements Output, Chest 350 20 Tube Drainage Output, Urine 60 1400 Patient 94.1 kg Weight Weight Standing scale Measurement Method Vital Signs: Date Time Temp Pulse Resp B/P B/P Pulse O2 O2 F low FiO2 Mean Ox Delivery Rate 07/12 0857 97.5 71 27 136/58 97 Nasal 7 cannula 02/04 0627 72 28 137/53 74 100 02/04 0600 133/53 74 02/04 0600 74 27 112/61 81 100 02/04 0530 120/45 62 02/04 0530 54 30 101/53 73 98 02/04 0500 125/47 65 02/04 0500 56 26 108/60 78 96 02/04 0430 133/49 67 02/04 0430 56 30 112/55 77 97 02/04 0400 128/47 66 02/04 0400 57 28 113/56 78 96 02/04 0342 98 Nasal 6 cannula 02/04 0330 134/50 68 02/04 0330 56 25 108/59 80 100 02/04 0300 140/53 73 02/04 0300 57 29 118/59 83 98 02/04 0230 130/51 68 02/04 0230 57 28 105/58 79 98 02/04 0200 128/51 67 02/04 0200 57 26 108/58 79 98 02/04 0130 133/54 72 02/04 0130 59 29 114/60 78 97 02/04 0100 138/55 72 02/04 0100 57 30 110/59 79 97 02/04 0031 106/45 60 02/04 0031 61 41 86/51 63 86 02/04 0030 60 34 92/44 57 87 02/04 0000 127/51 68 02/04 0000 60 27 109/57 77 89 02/03 2330 133/55 72 02/03 2330 61 24 127/58 78 89 02/03 2300 142/60 80 02/03 2300 75 26 118/66 86 90 02/03 2230 134/57 76 02/03 2230 71 26 112/61 80 93 02/03 2200 132/55 73 02/03 2200 72 24 111/59 78 93 02/03 2130 145/57 77 02/03 2130 73 26 112/58 79 96 02/03 2100 141/56 76 02/03 2100 75 29 113/56 79 95 02/03 2029 121/48 64 02/03 2029 57 24 107/56 75 92 02/03 2025 93 High flow 6 nasal cannula 02/03 1999 131/48 65 02/03 1999 98.4 55 26 111/56 77 94 02/03 1930 High flow 6 nasal cannula 02/03 1930 133/49 67 02/03 1930 54 28 111/59 81 93 02/03 1900 55 31 103/57 73 94 02/03 1845 70 25 151/55 78 97 02/03 1830 71 27 122/58 84 95 02/03 1800 98.6 71 29 140/51 72 93 02/03 1745 98.6 71 30 148/52 74 94 02/03 1730 98.6 70 29 148/53 76 93 02/03 1715 98.8 70 29 149/54 77 96 02/03 1700 98.8 77 34 151/58 82 95 02/03 1645 98.8 71 21 148/56 79 95 02/03 1630 98.8 69 27 137/51 71 97 02/03 1615 98.6 71 27 127/48 66 98 02/03 1600 98.6 72 26 147/55 77 98 02/03 1545 98.6 74 32 159/56 80 97 02/03 1530 98.2 73 26 115/58 75 02/03 1515 98.2 76 33 106/60 77 02/03 1500 81 50 02/03 1445 78 34 02/03 1430 76 31 02/03 1415 98.8 75 27 116/57 76 91 02/03 1400 99.0 73 28 123/63 87 93 02/03 1345 99.0 73 28 113/55 74 94 02/03 1330 99.0 73 29 119/63 86 94 02/03 1315 99.0 73 28 119/56 75 96 02/03 1300 99.0 72 30 118/60 83 95 02/03 1245 99.0 71 27 116/53 72 95 02/03 1230 99.0 66 24 98/57 74 97 02/03 1215 99.0 66 30 96 02/03 1200 99.0 69 32 91/50 64 96 02/03 1145 99.0 77 29 110/47 75 93 02/03 1130 99.0 77 28 111/60 81 95 02/03 1100 99.0 80 28 108/57 78 95 02/03 1015 99.0 78 27 137/45 65 95 02/03 1000 99.0 79 26 105/56 74 95 PATIENT WEIGHT: Weight (lb): 207 Weight (oz): 7.28 Weight (kg): 94.100 Medications: Active Meds + DC'd Last 24 Hrs Midodrine (PROAMATINE) 5 MG 0900,1300,1700 PO Sodium Bicarbonate (SODIUM BICARBONATE) 650 MG B ID PO Dextrose/Water (DEXTROSE 50% W SYRINGE) 50 ML ON CE ONE IV (DC) Insulin Human Regular (HUMAN INSULIN REG) 10 UNI TS STAT STA IV (DC) Ipratropium Kersey (ATROVENT) 500 MCG RTQ2H PRN PRN INH Albumin Human (ALBUMINAR 5% 12.5GM/250ML) 250 ML ONCE ONE IV (DC) Albumin Human (ALBUMINAR 5% 12.5GM/250ML) 250 ML ONCE ONE IV (DC) Furosemide (LASIX 40 mg/4 mL INJECTION) 80 MG ON CE ONE IV (DC) Midodrine (PROAMATINE) 2.5 MG 0900,1300,1700 PO (DC) Furosemide (LASIX 40 mg/4 mL INJECTION) 60 MG ON CE ONE IV (DC) Lactulose (LACTULOSE) 20 GM DAILY PRN PRN PO Cyanocobalamin (Vitamin B-12 500 mcg tab) 500 MC G DAILY PO Ferrous Sulfate (FERROUS SULFATE) 325 MG DAILY P O Dopamine HCl/Dextrose (DOPamine 400MG/D5W 250ML) 250 ML ASDIR IV Bisacodyl (DULCOLAX) 10 MG ONCE PRN RECTAL Insulin Human Lispro (HUMALOG) 0 AC HS SUBQ (DC) Atorvastatin Calcium (LIPITOR) 40 MG 2100 PO Clopidogrel Bisulfate (Plavix) 75 MG DAILY PO Polyethylene Glycol (MIRALAX) 17 GM DAILY PO Miscellaneous Information (PHARMACY TO DOSE/EVAL UATE) 1 EACH ASDIR MISC Calcium Chloride (CALCIUM CHLORIDE) 1 GM ASDIR P RN IV Sodium Chloride (SODIUM CHLORIDE 0.9%) 100 ML Calcium Chloride (CALCIUM CHLORIDE) 2 GM ASDIR P RN IV Sodium Chloride (SODIUM CHLORIDE 0.9%) 100 ML Magnesium Sulfate (MAGNESIUM SULFATE 4GM/SWFI 10 0ML) 100 ML ASDIR PRN IV Magnesium Sulfate (MAGNESIUM SULFATE 2GM/SWFI 50 ML) 50 ML ASDIR PRN IV Miscellaneous (PRISMASATE BGK 4/2.5 SOLUTION) 5, 000 ML ASDIR DIALYSIS Potassium Chloride (KCL 10MEQ/SWFI 50ML) 50 ML A SDIR PRN IV Sodium Chloride (SODIUM CHLORIDE 0.9%) 2,000 ML ASDIR PRN IV Sodium Phosphate (SODIUM PHOSPHATE) 25 MMOL ASDI R PRN IV Sodium Chloride (SODIUM CHLORIDE 0.9%) 250 ML Sodium Phosphate (SODIUM PHOSPHATE) 20 MMOL ASDI R PRN IV Sodium Chloride (SODIUM CHLORIDE 0.9%) 250 ML Sodium Phosphate (SODIUM PHOSPHATE) 15 MMOL ASDI R PRN IV Sodium Chloride (SODIUM CHLORIDE 0.9%) 250 ML Pantoprazole (PROTONIX) 40 MG DAILY@0600 PO Aspirin (ASPIRIN) 81 MG DAILY PO Vasopressin (VASOSTRICT 20 Unit/NS 100ML) 100 ML ASDIR IV (CKD) Amiodarone HCl (CORDARONE) 200 MG TID PO Docusate Sodium (COLACE) 100 MG BID PO Gabapentin (NEURONTIN) 200 MG BID PO Metoprolol Tartrate (LOPRESSOR) 12.5 MG Q12HR PO (DC) Mupirocin (BACTROBAN 2% 22 GM OINTMENT) 1 APPLIC BID NASAL Sennosides (Senna Lax 8.6 MG TABLET) 17.2 MG BED TIME PO Ipratropium Kersey (ATROVENT) 500 MCG RTQ4H INH Acetaminophen (TYLENOL) 650 MG Q4H PRN PRN PO Acetaminophen (TYLENOL) 650 MG Q4H PRN PRN RECTA L Calcium Chloride (CALCIUM CHLORIDE) 1 GM ASDIR P RN IV Dextrose/Water (DEXTROSE 10% IN WATER) 125 ML DIR PRN IV (CKD) Dextrose/Water (DEXTROSE 10% IN WATER) 250 ML DIR PRN IV (CKD) Epinephrine (ADRENALIN CHLORIDE) 4 MG ASDIR IV Dextrose/Water (DEXTROSE 5% WATER) 246 ML Glucagon (GLUCAGON) 1 MG ASDIR PRN IM Magnesium Sulfate (MAGNESIUM SULFATE 4GM/SWFI 10 0ML) 100 ML ASDIR PRN IV Magnesium Sulfate (MAGNESIUM SULFATE 2GM/SWFI 50 ML) 50 ML ASDIR PRN IV Magnesium Sulfate/Dextrose (MAGNESIUM SULFATE 1G M/D5W 100ML) 100 ML ASDIR PRN IV Nitroglycerin/Dextrose (NITROGLYCERIN 50,000MCG/ D5W 250ML) 250 ML ASDIR IV Norepinephrine Bitartrate (NOREPINEPHRINE 8 MG/N S 250 ML) 250 ML TITRATE IV Ondansetron HCl (ZOFRAN) 4 MG Q6H PRN PRN IV Oxycodone HCl (ROXICODONE) 5 MG Q4H PRN PRN PO Oxycodone HCl (ROXICODONE) 10 MG Q4H PRN PRN PO Potassium Chloride (KCL 20MEQ/SWFI 100ML) 100 ML ASDIR PRN IV Sodium Bicarbonate (SODIUM BICARBONATE) 50 MEQ A SDIR PRN IV Sodium Chloride (SODIUM CHLORIDE 0.9%) 1,000 ML .Q20H IV (DC) Sodium Chloride (SODIUM CHLORIDE 0.9%) 250 ML Q2 4H IV Albumin Human (ALBUMINAR-25%) 12.5 GM ASDIR PRN IV Heparin Sodium (Porcine) (HEPARIN SODIUM) 3,000 UNIT ASDIR PRN DIALYSIS Lidocaine HCl (LIDOCAINE HCL/PF) 0.5 ML ASDIR NV N I-DERMAL (CKD) Mannitol (Mannitol 20%) 12.5 GM ASDIR PRN IV Sodium Chloride (SODIUM CHLORIDE 0.9%) 2,000 ML ASDIR PRN IV Tamsulosin HCl (Flomax 0.4 mg) 0.4 MG BEDTIME PO Status post: 07/08/22 CABG x 5 (MISTRY-LAD, SVG-Ladonna, SVG-OM1< SV G-OM3, SVG-PDA) ALAA Physical Exam General appearance: frail, a lert, awake, oriented, no acute distress, pleasant, mental status normal, no respiratory distress Head/Eyes: atraumatic ENT: moist mucosal membranes Neck: no JVD Cardiovascular: CV assessment: regular rate and rhythm, no murm ur Respiratory: decreased breath sounds, no distres s Abdomen: soft, non-tender, normal bowel sounds, no distention, no guarding Upper extremity: UE assessment: normal temperature, no edema Lower extremity: LE assessment: edema (RLE trace), normal temper ature, no edema Musculoskeletal: normal inspection 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: alert, oriented X 3, normal speech Skin: dry Psychiatry: normal affect Results Findings/Data: Laboratory Tests 07/12 0412 Blood Gas Puncture Site Art Line O2 Saturation (90 - 100 %) 89.5 L ABG pH (7.35 - 7.45) 7.371 ABG pCO2 (35.0 - 45 mmHg) 34.5 L ABG pO2 (80 - 100.0 mmHg) 58.5 L ABG HCO3 (22.0 - 26.0 MMOL/L) 20.0 L ABG Total CO2 21.1 ABG Base Excess (-4.0 - 4.0 MMOL/L) -5.3 L ABG Hematocrit (37.5 - 50.7 %) 27 L ABG Hemoglobin (12.5 - 16.9 G/DL) 9.2 L Sodium (134 - 147 mmol/L) 130 L Potassium (3.4 - 5.0 mmol/L) 5.4 H Chloride (100 - 108 mmol/L) 100 Ionized Calcium (1.12 - 1.32 MMOL/L) 1.19 Lactic Acid (0.9 - 1.7 mmol/l) 0.6 L O2 Delivery Device [facility] Laboratory Tests 07/110 7 0412 Chemistry Sodium (134 - 147 mEq/L) 134 132 L Potassium (3.4 - 5.0 mEq/L) 5.1 H 5.4 H Chloride (100 - 108 mEq/L) 103 101 Carbon Dioxide (21 - 33 mEq/l) 21 21 Anion Gap (0 - 20) 15 15 BUN (7 - 18 mg/dL) 38 H 47 H Creatinine (0.6 - 1.3 mg/dL) 3.9 H 4.3 H POC Creatinine (0.8 - 1.3 mg/dL) 4.5 H Glomerular Filtr Rate (70 - 80) 15.0 L 13.3 L Glucose (70 - 110 mg/dL) 100 118 H POC Glucose (70 - 110 MG/DL) 122 H POC Glucose (mg/dL) (70 - 110 MG/DL) 130 H Calcium (8.0 - 10.5 mg/dL) 8.6 8.6 Ionized Calcium Tenzin (1.09 - 1.30 MMOL/L) 1.09 Magnesium (1.80 - 2.40 mg/dL) 2.69 H 07/12 1150 Chemistry Sodium (134 - 147 mEq/L) 137 Potassium (3.4 - 5.0 mEq/L) 3.4 Chloride (100 - 108 mEq/L) 102 Carbon Dioxide (21 - 33 mEq/l) 29 Anion Gap (0 - 20) 9 BUN (7 - 18 mg/dL) 22 H Creatinine (0.6 - 1.3 mg/dL) 2.1 H Glomerular Filtr Rate (70 - 80) 31.4 L Glucose (70 - 110 mg/dL) 104 Calcium (8.0 - 10.5 mg/dL) 8.2 Ionized Calcium Tenzin (1.09 - 1.30 MMOL/L) 1.12 Magnesium (1.80 - 2.40 mg/dL) 2.03 Laboratory Tests 07/11 07/12 07/12 2220 0407 1150 Hematology WBC (4.5 - 11.0 x10 3/uL) 17.0 H 16.3 H RBC (4.00 - 5.60 x10 6/uL) 2.85 L 2.72 L Hgb (12.5 - 16.9 g/dL) 8.1 L 8.6 L 8.3 L Hct (37.5 - 50.7 %) 25.4 L 26.9 L 25.5 L MCV (81.0 - 99.0 fL) 94.4 93.8 MCH (27.0 - 33.0 pg) 30.2 30.5 MCHC (33.0 - 37.0 g/dL) 32.0 L 32.5 L RDW (11.5 - 14.5 %) 17.3 H 17.0 H Plt Count (150 - 400 x10 3/uL) 130 L 134 L MPV (7.0 - 9.0 fL) 11.6 H 11.5 H Neut % (Auto) (56.0 - 77.0 %) 83.2 H 85.0 H Lymph % (Auto) (14.0 - 32.0 %) 4.8 L 3.6 L [place] % (Auto) (4.8 - 9.0 %) 6.5 5.3 Eos % (Auto) (0.3 - 3.7 %) 4.1 H 4.4 H Baso % (Auto) (0.0 - 2.0 %) 0.5 0.4 Neut # (Auto) (2.0 - 7.6 x10 3/uL) 14.13 H 13.8 3 H Lymph # (Auto) (1.0 - 3.8 x10 3/uL) 0.81 L 0.59 L [place] # (Auto) (0.1 - 0.8 x10 3/uL) 1.10 H 0.87 H Eos # (Auto) (0.0 - 0.2 x10 3/uL) 0.70 H 0.72 H Baso # (Auto) (0.0 - 0.2 x10 3/uL) 0.09 0.07 Abs Immat Gran (auto) (0.00 - 0.03 x10 3/uL) 0. 15 H 0.21 H Add Manual Diff NO NO Immature Gran % (0.0 - 2.0 %) 0.9 1.3 Nucleated RBC % (0 - 0 %) 0.0 0.0 Nucleated RBCs # (Man) (0.0 - 0.1 x10 3/uL) 0.0 0 0.00 Laboratory Tests 07/12 07/12 0407 1150 Chemistry Magnesium (1.80 - 2.40 mg/dL) 2.69 H 2.03 Radiology data: Recent Impressions: RADIOLOGY - XR CHEST 1 V 07/12 0707 Report Impression - Status: SIGNED Entered: 07/12/2022 0737 IMPRESSION: 1. Small bilateral pleural effusions. 2. Moderate to severe enlarged cardiac silhouett e. 3. Bftc-on-fsnchihr pulmonary edema versus infil trates. Improvement. Impression By: [email or web address] - Manuel Vega M.D. Results: labs reviewed, vital signs reviewed, vi marylu signs stable, rhythm personally rev'd, current med profile rev'd Telemetry Interpretation: Normal sinus rhythm Echo results: EF 30 to 34%. Diagnosis, Assessment Plan Problem List/A P: 1. HTN (hypertension) 2. CLAUDETTE (acute kidney injury) 3. CAD (coronary artery disease) 4. Dyslipidemia 5. BPH (benign prostatic hyperplasia) Consultants: cardiology, cardiovascular surgery, nephrology Plan discussed with: patient, nurse Free Text DxA P Notes Free Text DxA P Notes: Mr. Arce is a pleasant 81 y/o M w/ PMHx: HTN, HLD presented to [facility] on 06/28/22 for chest pa in and sob. He was diagnosed NSTEMI w/ Trop was peaked 7600's, EKG w/ normal ST and CLAUDETTE w/ Cr 14 on admission. He underwent LHC on 07/[address] Layne which showed severe mLM 70% stenosis, pLAD diffuse 80% stenosis, mLA D 60% and focal 70% stenosis; pLCx 80% stenosis, dLCx 70% stenosis, pOM 60% stenosis; p RCA 40% stenosis, mRCA 60% stenosis and diffuse 50-60% dRCA. He transferred to [facility] for CABG. - CAD/NSTEMI s/p CABG CABG x 5 (MISTRY-LAD, SVG-Di a, SVG-OM1< SVG-OM3, SVG-PDA) ALAA On statins, BB, ASA, plavix Echo: LVEF 30-34%, CXR 2/2 small left apical pneumothorax, chest t ube in place Postop care per CTS - Acute Systolic HF with ischemic CMP LVEF 30-34 % strict I/Os, daily weights, fluid restriction, low NA diet diuresis as needed per Nephrology no charly/arb/aldactone due to CLAUDETTE Iniriate GDMT as tolerated, when of pressors persistent hypotension - on vaso and low dose D opamine repeat echocardiogram - CLAUDETTE. HD Per nephro. likely from obstructive uropathy. s/p waters cath. Renal ultrasound showed severe thickening of th e bladder, cholelitiasis. - HTN. hypotension post-op on vasopressin and low dose Dopamine Midodrine 5mg po tid. - HLD. On statins. - Anemia. monitor - Oliguric. Per nephro. Onn HD today. Electronically Signed by Carolyn Penny NP on at 1559 Electronically Signed by Mame Alexis MD on at 1700 RPT #:[id number] END OF REPORT 2022-07-12 07:09:00-00:00 [facility] Critical Care Progress Note REPORT#:[id number] REPORT STATUS: Signed DATE:07/12/22 TIME: 708 PATIENT: SHERRI ARCE UNIT #: [id number] ROOM/BED: [place] [address] : 42 AGE: 81 SEX: M ATTEND: Sam Mcarthur MD ADM AUTHOR: Edwardo Flannery MD * ALL edits or amendments must be made on the el [employer]ronic/computer document * Subjective Chief complaint: CABG HPI: This is 81 years old male with medical history s ignificant for HTN and dyslipidemia [facility] with [facility] pain and found to have a NSTEMI and also acute r enal failure. He underwent cardiac cath and was found to have sever e CAD including left main disease with EF of 30 to 35% and ischemic cardiomyopathy. Transfer here for CABG evaluation. CV surgery were consulted an d the patient earlier today underwent CABG x 5 (MISTRY -LAD, SVG-Ladonna, SVG-OM1< SVG-OM3, SVG-PDA) and AL AA. His intraoperative course was without significant occurrence. The patient was brought to CVICU intubated and ventilated on milrinone drip, norepinephrine drip, epinephrine drip and vasopressin drip. His initial ABG showed metabolic acidosi s and he received 2 A of sodium bicarb and 1 g of calcium. The patient started to wake up later in the even ing but he looked weak, so he was reversed with neostigmine and glycopyrrolate . His motor strength improved significantly after that and his spontaneous lenard athing trial was good on the following ABG showed some metabolic acid osis. The patient will be extubated to a BiPAP as his CO2 was high on the ABG. Comments: Out of bed in the chair On dopamine at 3 amanda and vasopressin 0.03 units Waters catheter unkinked, urine output 1.4 L Getting hemodialysis today Chest tube output 20 cc Tolerating p.o., had BM Objective General VS/I O Last Documented: Result Date Time Pulse Ox 100 07/12 626 B/P 137/53 07/12 626 B/P Mean 74 07/12 626 Pulse 72 07/12 626 Resp 28 07/12 626 O2 Delivery Nasal cannula 07/12 341 O2 Flow Rate 6 07/12 341 Temp 98.4 02/03 2000 FiO2 50 01/31 1919 24 hour I O ending at 0700: 0204 0700 02 1900 Intake Total 574.00 1350.00 Output Total 1420 410 Balance -846.00 940.00 Intake, IV 334.00 350.00 Intake, Oral 240 1000 Number 1 Bowel Movements Output, Chest 20 350 Tube Drainage Output, Urine 1400 60 Patient 94.1 kg Weight Weight Standing scale Measurement Method PATIENT WEIGHT: Weight (lb): 207 Weight (oz): 7.28 Weight (kg): 94.100 Medications: Active Meds + DC'd Last 24 Hrs Sodium Bicarbonate (SODIUM BICARBONATE) 650 MG B ID PO Dextrose/Water (DEXTROSE 50% W SYRINGE) 50 ML ON CE ONE IV (DC) Insulin Human Regular (HUMAN INSULIN REG) 10 UNI TS STAT STA IV (DC) Ipratropium Kersey (ATROVENT) 500 MCG RTQ2H PRN PRN INH Albumin Human (ALBUMINAR 5% 12.5GM/250ML) 250 ML ONCE ONE IV (DC) Albumin Human (ALBUMINAR 5% 12.5GM/250ML) 250 ML ONCE ONE IV (DC) Furosemide (LASIX 40 mg/4 mL INJECTION) 80 MG ON CE ONE IV (DC) Midodrine (PROAMATINE) 2.5 MG 0900,1300,1700 PO Furosemide (LASIX 40 mg/4 mL INJECTION) 60 MG ON CE ONE IV (DC) Lactulose (LACTULOSE) 20 GM DAILY PRN PRN PO Cyanocobalamin (Vitamin B-12 500 mcg tab) 500 MC G DAILY PO Ferrous Sulfate (FERROUS SULFATE) 325 MG DAILY P O Dopamine HCl/Dextrose (DOPamine 400MG/D5W 250ML) 250 ML ASDIR IV Bisacodyl (DULCOLAX) 10 MG ONCE PRN RECTAL Insulin Human Lispro (HUMALOG) 0 AC HS SUBQ (DC ) Atorvastatin Calcium (LIPITOR) 40 MG 2100 PO Clopidogrel Bisulfate (Plavix) 75 MG DAILY PO Polyethylene Glycol (MIRALAX) 17 GM DAILY PO Miscellaneous Information (PHARMACY TO DOSE/EVAL UATE) 1 EACH ASDIR MISC Calcium Chloride (CALCIUM CHLORIDE) 1 GM ASDIR P RN IV Sodium Chloride (SODIUM CHLORIDE 0.9%) 100 ML Calcium Chloride (CALCIUM CHLORIDE) 2 GM ASDIR P RN IV Sodium Chloride (SODIUM CHLORIDE 0.9%) 100 ML Magnesium Sulfate (MAGNESIUM SULFATE 4GM/SWFI 10 0ML) 100 ML ASDIR PRN IV Magnesium Sulfate (MAGNESIUM SULFATE 2GM/SWFI 50 ML) 50 ML ASDIR PRN IV Miscellaneous (PRISMASATE BGK 4/2.5 SOLUTION) 5, 000 ML ASDIR DIALYSIS Potassium Chloride (KCL 10MEQ/SWFI 50ML) 50 ML A SDIR PRN IV Sodium Chloride (SODIUM CHLORIDE 0.9%) 2,000 ML ASDIR PRN IV Sodium Phosphate (SODIUM PHOSPHATE) 25 MMOL ASDI R PRN IV Sodium Chloride (SODIUM CHLORIDE 0.9%) 250 ML Sodium Phosphate (SODIUM PHOSPHATE) 20 MMOL ASDI R PRN IV Sodium Chloride (SODIUM CHLORIDE 0.9%) 250 ML Sodium Phosphate (SODIUM PHOSPHATE) 15 MMOL ASDI R PRN IV Sodium Chloride (SODIUM CHLORIDE 0.9%) 250 ML Pantoprazole (PROTONIX) 40 MG DAILY@0600 PO Aspirin (ASPIRIN) 81 MG DAILY PO Vasopressin (VASOSTRICT 20 Unit/NS 100ML) 100 ML ASDIR IV (CKD) Amiodarone HCl (CORDARONE) 200 MG TID PO Docusate Sodium (COLACE) 100 MG BID PO Gabapentin (NEURONTIN) 200 MG BID PO Metoprolol Tartrate (LOPRESSOR) 12.5 MG Q12HR PO Mupirocin (BACTROBAN 2% 22 GM OINTMENT) 1 APPLIC BID NASAL Sennosides (Senna Lax 8.6 MG TABLET) 17.2 MG BED TIME PO Ipratropium Kersey (ATROVENT) 500 MCG RTQ4H IN H Acetaminophen (TYLENOL) 650 MG Q4H PRN PRN PO Acetaminophen (TYLENOL) 650 MG Q4H PRN PRN RECTA L Calcium Chloride (CALCIUM CHLORIDE) 1 GM ASDIR P RN IV Dextrose/Water (DEXTROSE 10% IN WATER) 125 ML DIR PRN IV (CKD) Dextrose/Water (DEXTROSE 10% IN WATER) 250 ML DIR PRN IV (CKD) Epinephrine (ADRENALIN CHLORIDE) 4 MG ASDIR IV Dextrose/Water (DEXTROSE 5% WATER) 246 ML Glucagon (GLUCAGON) 1 MG ASDIR PRN IM Magnesium Sulfate (MAGNESIUM SULFATE 4GM/SWFI 10 0ML) 100 ML ASDIR PRN IV Magnesium Sulfate (MAGNESIUM SULFATE 2GM/SWFI 50 ML) 50 ML ASDIR PRN IV Magnesium Sulfate/Dextrose (MAGNESIUM SULFATE 1G M/D5W 100ML) 100 ML ASDIR PRN IV Nitroglycerin/Dextrose (NITROGLYCERIN 50,000MCG/ D5W 250ML) 250 ML ASDIR IV Norepinephrine Bitartrate (NOREPINEPHRINE 8 MG/N S 250 ML) 250 ML TITRATE IV Ondansetron HCl (ZOFRAN) 4 MG Q6H PRN PRN IV Oxycodone HCl (ROXICODONE) 5 MG Q4H PRN PRN PO Oxycodone HCl (ROXICODONE) 10 MG Q4H PRN PRN PO Potassium Chloride (KCL 20MEQ/SWFI 100ML) 100 ML ASDIR PRN IV Sodium Bicarbonate (SODIUM BICARBONATE) 50 MEQ A SDIR PRN IV Sodium Chloride (SODIUM CHLORIDE 0.9%) 1,000 ML .Q20H IV (DC) Sodium Chloride (SODIUM CHLORIDE 0.9%) 250 ML Q2 4H IV Albumin Human (ALBUMINAR-25%) 12.5 GM ASDIR PRN IV Heparin Sodium (Porcine) (HEPARIN SODIUM) 3,000 UNIT ASDIR PRN DIALYSIS Lidocaine HCl (LIDOCAINE HCL/PF) 0.5 ML ASDIR NV N I-DERMAL (CKD) Mannitol (Mannitol 20%) 12.5 GM ASDIR PRN IV Sodium Chloride (SODIUM CHLORIDE 0.9%) 2,000 ML ASDIR PRN IV Tamsulosin HCl (Flomax 0.4 mg) 0.4 MG BEDTIME PO Results Findings/data: Laboratory Tests 07/12 07/11 07/11 0412 [id number] Blood Gas Puncture Site Art Line Art Line Art Line O2 Saturation (90 - 100 %) 89.5 L 95.2 93.9 ABG pH (7.35 - 7.45) 7.371 7.347 L 7.381 ABG pCO2 (35.0 - 45 mmHg) 34.5 L 37.9 36.5 ABG pO2 (80 - 100.0 mmHg) 58.5 L 80.5 71.5 L ABG HCO3 (22.0 - 26.0 MMOL/L) 20.0 L 20.8 L 21 .7 L ABG Total CO2 21.1 22.0 22.8 ABG Base Excess (-4.0 - 4.0 MMOL/L) -5.3 L -4. 8 L -3.4 ABG Hematocrit (37.5 - 50.7 %) 27 L 27 L 27 L ABG Hemoglobin (12.5 - 16.9 G/DL) 9.2 L 9.3 L 9 .2 L Marylu Test N/A N/A Sodium (134 - 147 mmol/L) 130 L 131 L 133 L Potassium (3.4 - 5.0 mmol/L) 5.4 H 5.5 H 4.9 Chloride (100 - 108 mmol/L) 100 102 103 Ionized Calcium (1.12 - 1.32 MMOL/L) 1.19 1.24 1.25 Lactic Acid (0.9 - 1.7 mmol/l) 0.6 L 1.1 0.5 L Temperature (F) 98.6 98.8 O2 Delivery Device HFNC Cannula Cannula Laboratory Tests 07/12 07/12 07/11 07/11 07/11 0412 0407 2220 2028 1551 Chemistry Sodium (134 - 147 mEq/L) 132 L 134 Potassium (3.4 - 5.0 mEq/L) 5.4 H 5.1 H Chloride (100 - 108 mEq/L) 101 103 Carbon Dioxide (21 - 33 mEq/l) 21 21 Anion Gap (0 - 20) 15 15 BUN (7 - 18 mg/dL) 47 H 38 H Creatinine (0.6 - 1.3 mg/dL) 4.3 H 3.9 H POC Creatinine (0.8 - 1.3 mg/dL) 4.5 H 3.8 H Glomerular Filtr Rate (70 - 80) 13.3 L 15.0 L Glucose (70 - 110 mg/dL) 118 H 100 POC Glucose (70 - 110 MG/DL) 122 H POC Glucose (mg/dL) (70 - 110 MG/DL) 130 H 159 H Calcium (8.0 - 10.5 mg/dL) 8.6 8.6 Ionized Calcium Tenzin (1.09 - 1.30 MMOL/L) 1.09 Magnesium (1.80 - 2.40 mg/dL) 2.69 H 07/11 07/11 07/11 1545 0905 3097 Chemistry Sodium (134 - 147 mEq/L) 132 L Potassium (3.4 - 5.0 mEq/L) 5.3 H Chloride (100 - 108 mEq/L) 102 Carbon Dioxide (21 - 33 mEq/l) 22 Anion Gap (0 - 20) 13 BUN (7 - 18 mg/dL) 44 H Creatinine (0.6 - 1.3 mg/dL) 3.8 H POC Creatinine (0.8 - 1.3 mg/dL) 3.6 H Glomerular Filtr Rate (70 - 80) 15.4 L Glucose (70 - 110 mg/dL) 156 H POC Glucose (70 - 110 MG/DL) 117 H POC Glucose (mg/dL) (70 - 110 MG/DL) 122 H Calcium (8.0 - 10.5 mg/dL) 8.9 Ionized Calcium Tenzin (1.09 - 1.30 MMOL/L) 1.17 Phosphorus (2.5 - 4.9 MG/DL) 3.9 Magnesium (1.80 - 2.40 mg/dL) 2.72 H Laboratory Tests 07/12 07/11 0407 2220 Hematology WBC (4.5 - 11.0 x10 3/uL) 17.0 H RBC (4.00 - 5.60 x10 6/uL) 2.85 L Hgb (12.5 - 16.9 g/dL) 8.6 L 8.1 L Hct (37.5 - 50.7 %) 26.9 L 25.4 L MCV (81.0 - 99.0 fL) 94.4 MCH (27.0 - 33.0 pg) 30.2 MCHC (33.0 - 37.0 g/dL) 32.0 L RDW (11.5 - 14.5 %) 17.3 H Plt Count (150 - 400 x10 3/uL) 130 L MPV (7.0 - 9.0 fL) 11.6 H Neut % (Auto) (56.0 - 77.0 %) 83.2 H Lymph % (Auto) (14.0 - 32.0 %) 4.8 L [place] % (Auto) (4.8 - 9.0 %) 6.5 Eos % (Auto) (0.3 - 3.7 %) 4.1 H Baso % (Auto) (0.0 - 2.0 %) 0.5 Neut # (Auto) (2.0 - 7.6 x10 3/uL) 14.13 H Lymph # (Auto) (1.0 - 3.8 x10 3/uL) 0.81 L [place] # (Auto) (0.1 - 0.8 x10 3/uL) 1.10 H Eos # (Auto) (0.0 - 0.2 x10 3/uL) 0.70 H Baso # (Auto) (0.0 - 0.2 x10 3/uL) 0.09 Abs Immat Gran (auto) (0.00 - 0.03 x10 3/uL) 0. 15 H Add Manual Diff NO Immature Gran % (0.0 - 2.0 %) 0.9 Nucleated RBC % (0 - 0 %) 0.0 Nucleated RBCs # (Man) (0.0 - 0.1 x10 3/uL) 0.0 0 Laboratory Tests 07/12/22 0407: [Embedded Image Not Available] 07/11/22 2220: [Embedded Image Not Available] 07/11/22 1545: [Embedded Image Not Available] Radiology data Recent Impressions: ULTRASOUND - US RETRO LTD 07/12 1624 Report Impression - Status: SIGNED Entered: 07/13/2022 0651 IMPRESSION: Moderate left hydronephrosis, appears slightly i mproved compared to prior exam. Findings suggestive of medical renal disease. Impression By: StevenABKanu - Delmer Palma M.D. Free Text Obj Notes Free Text Obj Notes: General appearance: Elderly male in no acute dis tress, interactive and conversational HEENT: atraumatic, normocephalic, moist mucosal membranes Neck: full range of motion, supple/no meningismu s Cardiovascular: S1-S2 regular rate and rhythm Respiratory: symmetric expansion, no acute respi ratory distress Abdomen: soft, non-tender, no distention, no gua rding Genitourinary: waters with clear urine Extremities: pedal pulses palpable, moves all, n o cyanosis, mild LE edema Musculoskeletal: normal inspection, no muscle sp asm 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ALTH: alert and oriented x3, CNII-XII gross ly intact, no motor deficits Skin: dry, intact and clean surgery dressing Diagnosis, Assessment Plan Problem list/A P: 1. CLAUDETTE (acute kidney injury) 2. CAD (coronary artery disease) 3. Goiter 4. BPH (benign prostatic hyperplasia) 5. Dyslipidemia 6. HTN (hypertension) Free text A P: 73-year-old male with Acute pulmonary insufficiency following thoracic surgery Status post CABG x 5 (MISTRY-LAD, SVG-Ladonna, SVG-OM1 < SVG-OM3, SVG-PDA) and ALAA Acute blood loss anemia Hypotension Ischemic cardiomyopathy, EF 30 to 34% Multivessel CAD CLAUDETTE on hemodialysis Continue mechanical ventilation, vent settings r eviewed Titrate FiO2 to keep saturation more than 90%. Spontaneous breathing trial as soon as possible Wean to extubate Follow ABGs and CXRs ABG shows metabolic acidosis. Patient re ceived 2 A of sodium bicarb and 1 g of calcium Keep off sedation Judicious pain control Milrinone drip 0.25 Epinephrine drip Norepinephrine drip Vasopressin drip Titrate drips to keep MAP more than 65 Wean milrinone off first per CV surgery Minimize fluids per CV surgery Aspirin and Plavix Atorvastatin Metoprolol Follow lactate level Monitor chest tube output Hemodialysis per nephrology Monitor urine output and kidney function Monitor and replete electrolytes Perioperative antibiotics Cardiac diet with bowel regimen once extubated BG control with insulin gtt per protocol PT/OT VTE prophylaxis. Stress ulcer prophylaxis. Discussed with CV surgery, anesthesia and ICU te am Critical care time 85 minutes 07/09 Appears neuro intact, multimodal pain control, m inimize narcotic use, no CO2 narcosis Extubated successfully, sats well on NC, wean O2 , monitor for hypercapnia, encourage I-S, obtain serial ABGs, CXR reviewed HD unstable, weaning vasopre ssors and inotrope, monitor HD parameters, low CVP, lactic acidosis with uptrending lactate, gentle volume resuscitation Oliguric CLAUDETTE, plan for CRRT per renal, h yperkalemia treated, obtain serial lab PO challenge, bowel regimen, serial abdominal ex am, monitor LFTs Leukocytosis postop, likely reactive, trend WBC, s/p antibiotic course for UTI , periop antibiotics Hgb trending down, no eviden ce of active bleed, monitor CTs output, RBC given HD instability Blood glucose control with insulin drip per prot ocol Encourage PT/OT and activity as tolerated DVT and GI prophylaxis with DAPT and PPI 2/ Appears neuro intact, multimodal pain control, m inimize narcotic use sats well on NC, wean O2, encourage I-S, ABG and CXR reviewed HD fairly stable, on minimal vasopressor support , lactic acidosis cleared s/p resuscitation Oliguric CLAUDETTE, tolerated CRRT, holding off per re nal, monitor UOP and electrolytes closely Oral diet as tolerated, bowel regimen, monitor L FTs Leukocytosis postop, trend WBC, treated for UTI preop Hgb responded to PRBC, no evidence of active ble ed, minimal CTs output Blood glucose control, transitioned insulin drip to SSI Encourage PT/OT and out of bed as tolerated DVT and GI prophylaxis with DAPT and PPI 2/3 Remains neuro intact, pain appears well controll ed Sats well on NC, wean O2, encourage I-S, ABG and CXR reviewed HD unstable, remains on minimal vasopressor supp ort, attempt to wean, start midodrine Oliguric CLAUDETTE, off CRRT per r enal, minimal UOP, started renal dose dopamine drip Tolerating oral diet, continue bowel regimen, LF Ts normalized Leukocytosis postop, continue to trend WBC, keira georgi for UTI preop Hgb stable s/p PRBC, no evidence of active bleed , monitor pCT output Blood glucose control with sliding scale insulin Encourage PT/OT and out of bed as tolerated, CM for dispo plan DVT and GI prophylaxis with DAPT and PPI 2/4 Remains neuro intact, pain appears well controll ed Sats well on NC, wean O2, encourage I-S, ABG and CXR reviewed HD unstable, weaning vasopressors, increase mido drine dose, remains in SR CLAUDETTE, likely postrenal, improved UOP, HD today pe r renal, hyperkalemia treated Tolerating oral diet, has bowel movement and bow el regimen, LFTs normalized Leukocytosis, WBC trending d own, currently off antibiotics s/p treatment for UTI Hgb remains stable s/p PRBC, no evidence of acti ve bleed, minimal CT output Blood glucose control with sliding scale insulin Encourage PT/OT and out of bed as tolerated, CM for dispo plan, IPR consulted DVT and GI prophylaxis with DAPT and PPI Consultants: cardiology, cardiovascular surgery, nephrology Plan discussed with: patient, consultants, nurse , interdisc care team Critical care time: Minutes: 39 Electronically Signed by Edwardo Flannery MD on 12/28 at 0247 RPT #:[id number] END OF REPORT 2022-07-12 07:07:00-00:00 [facility] ([facility]) Rehab Progress Note REPORT#:[id number] REPORT STATUS: Signed DATE:07/12/22 TIME: 706 PATIENT: SHERRI ARCE UNIT #: [id number] ROOM/BED: [place] [address] : 42 AGE: 81 SEX: M ATTEND: Sam Mcarthur MD ADM AUTHOR: Magdaleno Washburn * ALL edits or amendments must be made on the el [employer]/computer document * Subjective Chief complaint: Rehab follow-up Seen in CCU Doing fair Fatigues easily Denies NAIK/N/V/D/CP 14 systems reviewed and neg. except that above. Objective General VS: Vital Signs: Date Time Temp Pulse Resp B/P B/P Pulse O2 O2 F low FiO2 Mean Ox Delivery Rate 02/ 0627 72 28 137/53 74 100 02/04 0600 133/53 74 02/04 0600 74 27 112/61 81 100 02/04 0530 120/45 62 02/04 0530 54 30 101/53 73 98 02/04 0500 125/47 65 02/04 0500 56 26 108/60 78 96 02/04 0430 133/49 67 02/04 0430 56 30 112/55 77 97 02/04 0400 128/47 66 02/04 0400 57 28 113/56 78 96 02/04 0342 98 Nasal 6 cannula 02/04 0330 134/50 68 02/04 0330 56 25 108/59 80 100 02/04 0300 140/53 73 02/04 0300 57 29 118/59 83 98 02/04 0230 130/51 68 02/04 0230 57 28 105/58 79 98 02/04 0200 128/51 67 02/04 0200 57 26 108/58 79 98 02/04 0130 133/54 72 02/04 0130 59 29 114/60 78 97 02/04 0100 138/55 72 02/04 0100 57 30 110/59 79 97 02/04 0031 106/45 60 02/04 0031 61 41 86/51 63 86 02/04 0030 60 34 92/44 57 87 02/04 0000 127/51 68 02/04 0000 60 27 109/57 77 89 02/03 2330 133/55 72 02/03 2330 61 24 127/58 78 89 02/03 2300 142/60 80 02/03 2300 75 26 118/66 86 90 02/03 2230 134/57 76 02/03 2230 71 26 112/61 80 93 02/03 2200 132/55 73 02/03 2200 72 24 111/59 78 93 02/03 2130 145/57 77 02/03 2130 73 26 112/58 79 96 02/03 2100 141/56 76 02/03 2100 75 29 113/56 79 95 02/03 2029 121/48 64 02/03 2029 57 24 107/56 75 92 02/03 2025 93 High flow 6 nasal cannula 02/03 1999 131/48 65 02/03 1999 98.4 55 26 111/56 77 94 02/03 1930 High flow 6 nasal cannula 02/03 1930 133/49 67 02/03 1930 54 28 111/59 81 93 02/03 1900 55 31 103/57 73 94 02/03 1845 70 25 151/55 78 97 02/03 1830 71 27 122/58 84 95 02/03 1800 98.6 71 29 140/51 72 93 02/03 1745 98.6 71 30 148/52 74 94 02/03 1730 98.6 70 29 148/53 76 93 02/03 1715 98.8 70 29 149/54 77 96 02/03 1700 98.8 77 34 151/58 82 95 02/03 1645 98.8 71 21 148/56 79 95 02/03 1630 98.8 69 27 137/51 71 97 02/03 1615 98.6 71 27 127/48 66 98 02/03 1600 98.6 72 26 147/55 77 98 02/03 1545 98.6 74 32 159/56 80 97 02/03 1530 98.2 73 26 115/58 75 02/03 1515 98.2 76 33 106/60 77 02/03 1500 81 50 02/03 1445 78 34 02/03 1430 76 31 02/03 1415 98.8 75 27 116/57 76 91 02/03 1400 99.0 73 28 123/63 87 93 02/03 1345 99.0 73 28 113/55 74 94 02/03 1330 99.0 73 29 119/63 86 94 02/03 1315 99.0 73 28 119/56 75 96 02/03 1300 99.0 72 30 118/60 83 95 02/03 1245 99.0 71 27 116/53 72 95 02/03 1230 99.0 66 24 98/57 74 97 02/03 1215 99.0 66 30 96 02/03 1200 99.0 69 32 91/50 64 96 02/03 1145 99.0 77 29 110/47 75 93 02/03 1130 99.0 77 28 111/60 81 95 02/03 1100 99.0 80 28 108/57 78 95 02/03 1015 99.0 78 27 137/45 65 95 02/03 1000 99.0 79 26 105/56 74 95 02/03 0945 99.0 78 27 133/47 66 95 02/03 0930 98.8 80 27 115/64 84 95 02/03 0915 98.8 81 29 159/58 81 96 02/03 0900 99.0 76 28 142/52 72 95 02/03 0845 89.1 75 27 156/63 84 97 02/03 0830 99.1 79 31 149/61 81 97 02/03 0815 99.1 80 29 148/60 80 96 02/03 0800 Nasal 5 cannula 02/03 0800 99.0 82 29 96/57 69 94 02/03 0746 94 Nasal 5 cannula 02/03 0745 99.0 85 28 142/54 73 94 02/03 0730 99.0 86 24 101/59 76 94 02/03 0715 99.0 87 30 106/37 53 93 PATIENT WEIGHT: Weight (lb): 207 Weight (oz): 7.28 Weight (kg): 94.100 Medications: Active Meds + DC'd Last 24 Hrs Sodium Bicarbonate (SODIUM BICARBONATE) 650 MG B ID PO Dextrose/Water (DEXTROSE 50% W SYRINGE) 50 ML ON CE ONE IV (DC) Insulin Human Regular (HUMAN INSULIN REG) 10 UNI TS STAT STA IV (DC) Ipratropium Kersey (ATROVENT) 500 MCG RTQ2H PRN PRN INH Albumin Human (ALBUMINAR 5% 12.5GM/250ML) 250 ML ONCE ONE IV (DC) Albumin Human (ALBUMINAR 5% 12.5GM/250ML) 250 ML ONCE ONE IV (DC) Furosemide (LASIX 40 mg/4 mL INJECTION) 80 MG ON CE ONE IV (DC) Midodrine (PROAMATINE) 2.5 MG 0900,1300,1700 PO Furosemide (LASIX 40 mg/4 mL INJECTION) 60 MG ON CE ONE IV (DC) Lactulose (LACTULOSE) 20 GM DAILY PRN PRN PO Cyanocobalamin (Vitamin B-12 500 mcg tab) 500 MC G DAILY PO Ferrous Sulfate (FERROUS SULFATE) 325 MG DAILY P O Dopamine HCl/Dextrose (DOPamine 400MG/D5W 250ML) 250 ML ASDIR IV Bisacodyl (DULCOLAX) 10 MG ONCE PRN RECTAL Insulin Human Lispro (HUMALOG) 0 AC HS SUBQ (DC) Atorvastatin Calcium (LIPITOR) 40 MG 2100 PO Clopidogrel Bisulfate (Plavix) 75 MG DAILY PO Polyethylene Glycol (MIRALAX) 17 GM DAILY PO Miscellaneous Information (PHARMACY TO DOSE/EVAL UATE) 1 EACH ASDIR MISC Calcium Chloride (CALCIUM CHLORIDE) 1 GM ASDIR P RN IV Sodium Chloride (SODIUM CHLORIDE 0.9%) 100 ML Calcium Chloride (CALCIUM CHLORIDE) 2 GM ASDIR P RN IV Sodium Chloride (SODIUM CHLORIDE 0.9%) 100 ML Magnesium Sulfate (MAGNESIUM SULFATE 4GM/SWFI 10 0ML) 100 ML ASDIR PRN IV Magnesium Sulfate (MAGNESIUM SULFATE 2GM/SWFI 50 ML) 50 ML ASDIR PRN IV Miscellaneous (PRISMASATE BGK 4/2.5 SOLUTION) 5, 000 ML ASDIR DIALYSIS Potassium Chloride (KCL 10MEQ/SWFI 50ML) 50 ML A SDIR PRN IV Sodium Chloride (SODIUM CHLORIDE 0.9%) 2,000 ML ASDIR PRN IV Sodium Phosphate (SODIUM PHOSPHATE) 25 MMOL ASDI R PRN IV Sodium Chloride (SODIUM CHLORIDE 0.9%) 250 ML Sodium Phosphate (SODIUM PHOSPHATE) 20 MMOL ASDI R PRN IV Sodium Chloride (SODIUM CHLORIDE 0.9%) 250 ML Sodium Phosphate (SODIUM PHOSPHATE) 15 MMOL ASDI R PRN IV Sodium Chloride (SODIUM CHLORIDE 0.9%) 250 ML Pantoprazole (PROTONIX) 40 MG DAILY@0600 PO Aspirin (ASPIRIN) 81 MG DAILY PO Vasopressin (VASOSTRICT 20 Unit/NS 100ML) 100 ML ASDIR IV (CKD) Amiodarone HCl (CORDARONE) 200 MG TID PO Docusate Sodium (COLACE) 100 MG BID PO Gabapentin (NEURONTIN) 200 MG BID PO Metoprolol Tartrate (LOPRESSOR) 12.5 MG Q12HR PO Mupirocin (BACTROBAN 2% 22 GM OINTMENT) 1 APPLIC BID NASAL Sennosides (Senna Lax 8.6 MG TABLET) 17.2 MG BED TIME PO Ipratropium Kersey (ATROVENT) 500 MCG RTQ4H INH Acetaminophen (TYLENOL) 650 MG Q4H PRN PRN PO Acetaminophen (TYLENOL) 650 MG Q4H PRN PRN RECTA L Calcium Chloride (CALCIUM CHLORIDE) 1 GM ASDIR P RN IV Dextrose/Water (DEXTROSE 10% IN WATER) 125 ML DIR PRN IV (CKD) Dextrose/Water (DEXTROSE 10% IN WATER) 250 ML DIR PRN IV (CKD) Epinephrine (ADRENALIN CHLORIDE) 4 MG ASDIR IV Dextrose/Water (DEXTROSE 5% WATER) 246 ML Glucagon (GLUCAGON) 1 MG ASDIR PRN IM Magnesium Sulfate (MAGNESIUM SULFATE 4GM/SWFI 10 0ML) 100 ML ASDIR PRN IV Magnesium Sulfate (MAGNESIUM SULFATE 2GM/SWFI 50 ML) 50 ML ASDIR PRN IV Magnesium Sulfate/Dextrose (MAGNESIUM SULFATE 1G M/D5W 100ML) 100 ML ASDIR PRN IV Nitroglycerin/Dextrose (NITROGLYCERIN 50,000MCG/ D5W 250ML) 250 ML ASDIR IV Norepinephrine Bitartrate (NOREPINEPHRINE 8 MG/N S 250 ML) 250 ML TITRATE IV Ondansetron HCl (ZOFRAN) 4 MG Q6H PRN PRN IV Oxycodone HCl (ROXICODONE) 5 MG Q4H PRN PRN PO Oxycodone HCl (ROXICODONE) 10 MG Q4H PRN PRN PO Potassium Chloride (KCL 20MEQ/SWFI 100ML) 100 ML ASDIR PRN IV Sodium Bicarbonate (SODIUM BICARBONATE) 50 MEQ A SDIR PRN IV Sodium Chloride (SODIUM CHLORIDE 0.9%) 1,000 ML .Q20H IV (DC) Sodium Chloride (SODIUM CHLORIDE 0.9%) 250 ML Q2 4H IV Albumin Human (ALBUMINAR-25%) 12.5 GM ASDIR PRN IV Heparin Sodium (Porcine) (HEPARIN SODIUM) 3,000 UNIT ASDIR PRN DIALYSIS Lidocaine HCl (LIDOCAINE HCL/PF) 0.5 ML ASDIR NV N I-DERMAL (CKD) Mannitol (Mannitol 20%) 12.5 GM ASDIR PRN IV Sodium Chloride (SODIUM CHLORIDE 0.9%) 2,000 ML ASDIR PRN IV Tamsulosin HCl (Flomax 0.4 mg) 0.4 MG BEDTIME PO Functional Progress Functional progress: Weightbearing: STERNAL Ambulation Distance: 10FT X2 Progression: Forward Assistance Level: Minimal Assistance Gait Deviations: SLOW Base of Support - Narrow [facility] Mobility: No Document Pain/Education: No Advanced Progression: No Effects of Treatment: Cardio tolerance improved Function Improved Post TX Precautions: In Chair Call Light in Reach Nursing Notified O2 on Review Plan of Care: Yes PT charges: Gait Training [id number] Gait Cmt: Pt AMBUALTED 10FT X2, RW, WC FOLLOW, MIN A. MOD A SUPINE>SIT. 2 PERSON ASSIST FOR LINE MANAGEMENT . VITALS MONITORED DURING TX, Pts BP LOWEST 90/51 , RECOVERED TO 120/65. PROGRESS Pt WITH OUT OF ROOM AMBULATION TOLERATED. If this is the patient's last treatment, this e ntry serves as the discharge summary: Y Start Time: 1006 Stop Time: 1030 Treatment Time : ( minutes) 0:24 Completed by: Seymour Amador Conference/Supervising PT: Yes Supervising Therapist: Seymour Carrero Reviewed and Approved By: SEYMOUR AMADOR, PT . BED MOBILITY: Yes Rolling Right/Left: Supervision or Set-up Supine to Sit: Moderate Assistance Scooting in bed: Moderate Assistance TRANSFERS: Yes Bed to/from chair: Moderate Assistance Sit to/from stand: Moderate Assistance Physical Exam General appearance: alert, awake Psych: alert, oriented x 3 HEENT: anicteric, sclera clear Neck: supple, no JVD Cardiovascular: regular rate rhythm, S1/S2 Respiratory: aerating well, clear bilaterally Abdomen: bowel sounds present, non-distended, so ft Skin: intact, no rash Musculoskeletal - general: Musculoskeletal - general: joints normal, meagan l muscle mass, normal tone 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ALTH: alert, oriented X 3, CNII-XII intact Results Findings/Data: Laboratory Tests: 07/12 07/12 07/11 07/11 0432 1769 2219 2028 Blood Gas Puncture Site Art Line O2 Saturation (90 - 100 %) 89.5 L ABG pH (7.35 - 7.45) 7.371 ABG pCO2 (35.0 - 45 mmHg) 34.5 L ABG pO2 (80 - 100.0 mmHg) 58.5 L ABG HCO3 (22.0 - 26.0 MMOL/L) 20.0 L ABG Total CO2 21.1 ABG Base Excess (-4.0 - 4.0 MMOL/L) -5.3 L ABG Hematocrit (37.5 - 50.7 %) 27 L ABG Hemoglobin (12.5 - 16.9 G/DL) 9.2 L Sodium (134 - 147 mmol/L) 130 L Potassium (3.4 - 5.0 mmol/L) 5.4 H Chloride (100 - 108 mmol/L) 100 Ionized Calcium (1.12 - 1.32 MMOL/L) 1.19 Lactic Acid (0.9 - 1.7 mmol/l) 0.6 L O2 Delivery Device HFNC Chemistry Sodium (134 - 147 mEq/L) 132 L 134 Potassium (3.4 - 5.0 mEq/L) 5.4 H 5.1 H Chloride (100 - 108 mEq/L) 101 103 Carbon Dioxide (21 - 33 mEq/l) 21 21 Anion Gap (0 - 20) 15 15 BUN (7 - 18 mg/dL) 47 H 38 H Creatinine (0.6 - 1.3 mg/dL) 4.3 H 3.9 H POC Creatinine (0.8 - 1.3 mg/dL) 4.5 H Glomerular Filtr Rate (70 - 80) 13.3 L 15.0 L Glucose (70 - 110 mg/dL) 118 H 100 POC Glucose (70 - 110 MG/DL) 122 H POC Glucose (mg/dL) (70 - 110 MG/DL) 130 H Calcium (8.0 - 10.5 mg/dL) 8.6 8.6 Ionized Calcium Tenzin (1.09 - 1.30 MMOL/L) 1.09 Magnesium (1.80 - 2.40 mg/dL) 2.69 H Hematology WBC (4.5 - 11.0 x10 3/uL) 17.0 H RBC (4.00 - 5.60 x10 6/uL) 2.85 L Hgb (12.5 - 16.9 g/dL) 8.6 L 8.1 L Hct (37.5 - 50.7 %) 26.9 L 25.4 L MCV (81.0 - 99.0 fL) 94.4 MCH (27.0 - 33.0 pg) 30.2 MCHC (33.0 - 37.0 g/dL) 32.0 L RDW (11.5 - 14.5 %) 17.3 H Plt Count (150 - 400 x10 3/uL) 130 L MPV (7.0 - 9.0 fL) 11.6 H Neut % (Auto) (56.0 - 77.0 %) 83.2 H Lymph % (Auto) (14.0 - 32.0 %) 4.8 L [place] % (Auto) (4.8 - 9.0 %) 6.5 Eos % (Auto) (0.3 - 3.7 %) 4.1 H Baso % (Auto) (0.0 - 2.0 %) 0.5 Neut # (Auto) (2.0 - 7.6 x10 3/uL) 14.13 H Lymph # (Auto) (1.0 - 3.8 x10 3/uL) 0.81 L [place] # (Auto) (0.1 - 0.8 x10 3/uL) 1.10 H Eos # (Auto) (0.0 - 0.2 x10 3/uL) 0.70 H Baso # (Auto) (0.0 - 0.2 x10 3/uL) 0.09 Abs Immat Gran (auto) (0.00 - 0.03 x10 3/uL) 0. 15 H Add Manual Diff NO Immature Gran % (0.0 - 2.0 %) 0.9 Nucleated RBC % (0 - 0 %) 0.0 Nucleated RBCs # (Man) (0.0 - 0.1 x10 3/uL) 0.0 0 07/11 07/11 07/11 07/11 1551 5880 2795 6360 Blood Gas Puncture Site Art Line Art Line O2 Saturation (90 - 100 %) 95.2 93.9 ABG pH (7.35 - 7.45) 7.347 L 7.381 ABG pCO2 (35.0 - 45 mmHg) 37.9 36.5 ABG pO2 (80 - 100.0 mmHg) 80.5 71.5 L ABG HCO3 (22.0 - 26.0 MMOL/L) 20.8 L 21.7 L ABG Total CO2 22.0 22.8 ABG Base Excess (-4.0 - 4.0 MMOL/L) -4.8 L -3.4 ABG Hematocrit (37.5 - 50.7 %) 27 L 27 L ABG Hemoglobin (12.5 - 16.9 G/DL) 9.3 L 9.2 L Marylu Test N/A N/A Sodium (134 - 147 mmol/L) 131 L 133 L Potassium (3.4 - 5.0 mmol/L) 5.5 H 4.9 Chloride (100 - 108 mmol/L) 102 103 Ionized Calcium (1.12 - 1.32 MMOL/L) 1.24 1.25 Lactic Acid (0.9 - 1.7 mmol/l) 1.1 0.5 L Temperature (F) 98.6 98.8 O2 Delivery Device Cannula Cannula Chemistry Sodium (134 - 147 mEq/L) 132 L Potassium (3.4 - 5.0 mEq/L) 5.3 H Chloride (100 - 108 mEq/L) 102 Carbon Dioxide (21 - 33 mEq/l) 22 Anion Gap (0 - 20) 13 BUN (7 - 18 mg/dL) 44 H Creatinine (0.6 - 1.3 mg/dL) 3.8 H POC Creatinine (0.8 - 1.3 mg/dL) 3.8 H 3.6 H Glomerular Filtr Rate (70 - 80) 15.4 L Glucose (70 - 110 mg/dL) 156 H POC Glucose (70 - 110 MG/DL) 117 H POC Glucose (mg/dL) (70 - 110 MG/DL) 159 H 122 H Calcium (8.0 - 10.5 mg/dL) 8.9 Ionized Calcium Tenzin (1.09 - 1.30 MMOL/L) 1.17 Phosphorus (2.5 - 4.9 MG/DL) 3.9 Magnesium (1.80 - 2.40 mg/dL) 2.72 H Diagnosis, Assessment Plan Free Text A P: Non-STEMI Multivessel CAD S/p CABG x5 Physical deconditioning Impaired mobility and gait Postoperative anemia Dyslipidemia Hypertension CLAUDETTE Acute systolic heart failure Hemodynamic issues postop Leukocytosis trending down Plan: Continue PT/OT Out of bed to chair Work on strength, bed mobility, transfers, gait Sternal precaution Increase endurance Fall precautions Monitor p.o. intake and nutrition Strict decubitus precautions Advance therapies as tolerated Wean pressors as tolerated Nephrology managing renal issues IRF consulted. Will require insurance approval Total time was 33 minutes > 50% with patient per forming physical examination, discussing plan of care, goals, therapies, progr ess, medications, labs. All questions answered Rehab attestation: . Electronically Signed by Magdaleno Washburn on 0 07/12/22 at 1947 RPT #:[id number] END OF REPORT 2022-07-11 16:03:00-00:00 [facility] ([facility]) Nephrology Progress Note REPORT#:[id number] REPORT STATUS: Signed DATE:07/11/22 TIME: 160 PATIENT: SHERRI ARCE UNIT #: [id number] ROOM/BED: [place] [address] : 42 AGE: 81 SEX: M ATTEND: Radha Ward ADM AUTHOR: Evelina Plaza MD * ALL edits or amendments must be made on the [email or web address] document * Subjective Chief complaint: has no complaints. Objective General VS/I O: Vital Signs: Date Time Temp Pulse Resp B/P B/P Pulse O2 O2 Flow FiO2 Mean Ox Delivery Rate 02/ 0800 Nasal 5 cannula 02/03 0746 94 Nasal 5 cannula 02/03 0556 99.3 87 30 128/44 62 95 02/03 0530 99.3 88 121/41 59 93 02/03 0500 99.5 92 120/46 63 93 02/03 0430 99.7 88 28 127/45 63 90 02/03 0400 121/44 62 02/03 0400 99.7 91 27 97/54 68 90 02/03 0330 135/47 66 02/03 0330 99.5 87 27 106/59 78 93 02/03 0300 136/46 65 02/03 0300 99.5 87 25 103/59 77 93 02/03 0230 126/44 62 02/03 0230 99.5 86 26 100/57 75 92 02/03 0200 128/45 63 02/03 0200 99.5 85 26 100/57 74 92 02/03 0130 133/44 63 02/03 0130 99.5 84 25 100/56 74 92 02/03 0115 99.5 84 24 137/45 64 92 02/03 0100 140/45 65 02/03 0100 99.3 84 25 105/55 76 93 02/03 0030 131/44 63 02/03 0030 99.3 82 25 102/55 75 93 02/03 0000 99.3 82 28 104/56 77 91 02/02 2300 125/42 60 02/02 2300 99.5 85 25 104/54 74 90 02/02 2230 136/43 64 02/02 2230 99.3 91 25 109/55 78 91 02/02 2200 141/46 66 02/02 2200 99.9 83 28 122/58 84 93 02/02 2130 100.4 83 28 146/68 98 89 02/02 2100 138/50 70 02/02 2100 100.2 71 29 111/56 77 93 02/02 2030 145/48 68 02/02 2029 100.0 72 29 111/57 79 93 02/02 1999 High flow 2 nasal cannula 07/10 1999 115/36 52 02/02 1999 99.9 76 27 86/47 61 93 02/02 1941 95 Nasal 3 cannula / 1930 108/36 51 02/02 1930 100.0 77 79/45 57 92 02/02 1900 100.0 75 25 77/46 57 93 02/02 1845 100.0 76 26 99/34 49 93 02/02 1830 120/40 56 02/02 1830 100.0 78 27 86/48 62 94 02/02 1815 100.0 77 29 113/37 53 94 02/02 1800 100.0 76 31 77/43 55 94 02/02 1745 100.0 77 29 88/32 46 95 02/02 1730 74 31 72/38 51 94 02/02 1715 75 43 58/15 31 89 02/02 1700 74 28 75/37 47 95 02/02 1645 82 33 78/28 44 91 02/02 1630 80 32 81/49 60 95 02/02 1615 81 43 106/29 47 96 24 hour I O ending at 0700: /03 0700 /02 1900 Intake Total 1017.00 1283.00 Output Total 240 1027 Balance 777.00 256.00 Intake, IV 427.00 383.00 Intake, Oral 240 560 Intake, Oral 240 Supplement Intake, Other 100 Intake, 350 Packed Cells Number Voids Output, CRRT 489 Ultrafiltration Output, Chest 200 395 Tube Drainage Output, Urine 40 143 Patient 92 kg Weight Weight Bed scale Measurement Method PATIENT WEIGHT: Weight (lb): 202 Weight (oz): 13.2 Weight (kg): 92.000 Medications Active Meds + DC'd Last 24 Hrs Ipratropium Kersey (ATROVENT) 500 MCG RTQ2H PRN PRN INH Albumin Human (ALBUMINAR 5% 12.5GM/250ML) 250 ML ONCE ONE IV Furosemide (LASIX 40 mg/4 mL INJECTION) 80 MG ON CE ONE IV (DC) Midodrine (PROAMATINE) 2.5 MG 0900,1300,1700 PO Furosemide (LASIX 40 mg/4 mL INJECTION) 60 MG ON CE ONE IV (DC) Lactulose (LACTULOSE) 20 GM DAILY PRN PRN PO Cyanocobalamin (Vitamin B-12 500 mcg tab) 500 MC G DAILY PO Ferrous Sulfate (FERROUS SULFATE) 325 MG DAILY P O Calcium Gluconate/Sodium Chloride (Calcium Gluco hilario 1 GM/NS 50 mL) 50 ML ONCE ONE IV (DC) Dopamine HCl/Dextrose (DOPamine 400MG/D5W 250ML) 250 ML ASDIR IV Bisacodyl (DULCOLAX) 10 MG ONCE PRN RECTAL Insulin Human Lispro (HUMALOG) 0 AC HS SUBQ (DC) Atorvastatin Calcium (LIPITOR) 40 MG 2100 PO Clopidogrel Bisulfate (Plavix) 75 MG DAILY PO Polyethylene Glycol (MIRALAX) 17 GM DAILY PO Miscellaneous Information (PHARMACY TO DOSE/EVAL UATE) 1 EACH ASDIR MISC Calcium Chloride (CALCIUM CHLORIDE) 1 GM ASDIR P RN IV Sodium Chloride (SODIUM CHLORIDE 0.9%) 100 ML Calcium Chloride (CALCIUM CHLORIDE) 2 GM ASDIR P RN IV Sodium Chloride (SODIUM CHLORIDE 0.9%) 100 ML Magnesium Sulfate (MAGNESIUM SULFATE 4GM/SWFI 10 0ML) 100 ML ASDIR PRN IV Magnesium Sulfate (MAGNESIUM SULFATE 2GM/SWFI 50 ML) 50 ML ASDIR PRN IV Miscellaneous (PRISMASATE BGK 4/2.5 SOLUTION) 5, 000 ML ASDIR DIALYSIS Potassium Chloride (KCL 10MEQ/SWFI 50ML) 50 ML A SDIR PRN IV Sodium Chloride (SODIUM CHLORIDE 0.9%) 2,000 ML ASDIR PRN IV Sodium Phosphate (SODIUM PHOSPHATE) 25 MMOL ASDI R PRN IV Sodium Chloride (SODIUM CHLORIDE 0.9%) 250 ML Sodium Phosphate (SODIUM PHOSPHATE) 20 MMOL ASDI R PRN IV Sodium Chloride (SODIUM CHLORIDE 0.9%) 250 ML Sodium Phosphate (SODIUM PHOSPHATE) 15 MMOL ASDI R PRN IV Sodium Chloride (SODIUM CHLORIDE 0.9%) 250 ML Pantoprazole (PROTONIX) 40 MG DAILY@0600 PO Aspirin (ASPIRIN) 81 MG DAILY PO Vasopressin (VASOSTRICT 20 Unit/NS 100ML) 100 ML ASDIR IV (CKD) Amiodarone HCl (CORDARONE) 200 MG TID PO Docusate Sodium (COLACE) 100 MG BID PO Gabapentin (NEURONTIN) 200 MG BID PO Metoprolol Tartrate (LOPRESSOR) 12.5 MG Q12HR PO Mupirocin (BACTROBAN 2% 22 GM OINTMENT) 1 APPLIC BID NASAL Sennosides (Senna Lax 8.6 MG TABLET) 17.2 MG BED TIME PO Ipratropium Kersey (ATROVENT) 500 MCG RTQ4H INH Acetaminophen (TYLENOL) 650 MG Q4H PRN PRN PO Acetaminophen (TYLENOL) 650 MG Q4H PRN PRN RECTA L Calcium Chloride (CALCIUM CHLORIDE) 1 GM ASDIR P RN IV Dextrose/Water (DEXTROSE 10% IN WATER) 125 ML DIR PRN IV (CKD) Dextrose/Water (DEXTROSE 10% IN WATER) 250 ML DIR PRN IV (CKD) Epinephrine (ADRENALIN CHLORIDE) 4 MG ASDIR IV Dextrose/Water (DEXTROSE 5% WATER) 246 ML Glucagon (GLUCAGON) 1 MG ASDIR PRN IM Magnesium Sulfate (MAGNESIUM SULFATE 4GM/SWFI 10 0ML) 100 ML ASDIR PRN IV Magnesium Sulfate (MAGNESIUM SULFATE 2GM/SWFI 50 ML) 50 ML ASDIR PRN IV Magnesium Sulfate/Dextrose (MAGNESIUM SULFATE 1G M/D5W 100ML) 100 ML ASDIR PRN IV Nitroglycerin/Dextrose (NITROGLYCERIN 50,000MCG/ D5W 250ML) 250 ML ASDIR IV Norepinephrine Bitartrate (NOREPINEPHRINE 8 MG/N S 250 ML) 250 ML TITRATE IV Ondansetron HCl (ZOFRAN) 4 MG Q6H PRN PRN IV Oxycodone HCl (ROXICODONE) 5 MG Q4H PRN PRN PO Oxycodone HCl (ROXICODONE) 10 MG Q4H PRN PRN PO Potassium Chloride (KCL 20MEQ/SWFI 100ML) 100 ML ASDIR PRN IV Sodium Bicarbonate (SODIUM BICARBONATE) 50 MEQ A SDIR PRN IV Sodium Chloride (SODIUM CHLORIDE 0.9%) 1,000 ML .Q20H IV Sodium Chloride (SODIUM CHLORIDE 0.9%) 250 ML Q2 4H IV Albumin Human (ALBUMINAR-25%) 12.5 GM ASDIR PRN IV Heparin Sodium (Porcine) (HEPARIN SODIUM) 3,000 UNIT ASDIR PRN DIALYSIS Lidocaine HCl (LIDOCAINE HCL/PF) 0.5 ML ASDIR NV N I-DERMAL (CKD) Mannitol (Mannitol 20%) 12.5 GM ASDIR PRN IV Sodium Chloride (SODIUM CHLORIDE 0.9%) 2,000 ML ASDIR PRN IV Tamsulosin HCl (Flomax 0.4 mg) 0.4 MG BEDTIME PO Physical Exam General appearance: alert, awake, oriented Head/eyes: atraumatic, normocephalic ENT: moist mucous membranes, normal nose Neck: non-tender, no JVD Extremities: no edema, no swelling 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: alert, oriented X 3, normal speech Skin: dry, intact Results Findings/Data: Laboratory Tests 07/11 07/11 07/11 07/11 1551 0948 0430 0226 Blood Gas Puncture Site Art Line Art Line [place] Ally Art L ine O2 Saturation (90 - 100 %) 95.2 93.9 91.8 ABG pH (7.35 - 7.45) 7.347 L 7.381 7.375 ABG pCO2 (35.0 - 45 mmHg) 37.9 36.5 40.6 ABG pO2 (80 - 100.0 mmHg) 80.5 71.5 L 64.8 L ABG HCO3 (22.0 - 26.0 MMOL/L) 20.8 L 21.7 L 23. 8 ABG Total CO2 22.0 22.8 25.0 ABG Base Excess (-4.0 - 4.0 MMOL/L) -4.8 L -3.4 -1.4 ABG Hematocrit (37.5 - 50.7 %) 27 L 27 L 31 L 2 7 L ABG Hemoglobin (12.5 - 16.9 G/DL) 9.3 L 9.2 L 10.5 L 9.3 L Marylu Test N/A N/A VBG pH (7.33 - 7.45) 7.369 VBG pCO2 (43 - 47 mmHg) 42.1 L VBG pO2 (10 - 50 mmHG) 30.2 VBG HCO3 (22 - 27 MMOL/L) 24.3 POC VBG Total CO2 25.6 VBG O2 Saturation (60 - 80 %) 55.6 L VBG Base Excess (-4.0 - 4.0 MMOL/L) -1.0 Sodium (134 - 147 mmol/L) 131 L 133 L 135 135 Potassium (3.4 - 5.0 mmol/L) 5.5 H 4.9 4.7 4.7 Chloride (100 - 108 mmol/L) 102 103 105 101 Ionized Calcium (1.12 - 1.32 MMOL/L) 1.24 1.25 1.26 1.26 Lactic Acid (0.9 - 1.7 mmol/l) 1.1 0.5 L 0.4 L 0.5 L Temperature (F) 98.6 98.8 O2 Delivery Device Cannula Cannula HFNC HFCO Laboratory Tests 07/11 07/11 07/11 07/11 07/11 1551 1545 0948 0743 0430 Chemistry POC Creatinine (0.8 - 1.3 mg/dL) 3.8 H 3.6 H 3. 6 H POC Glucose (70 - 110 MG/DL) 117 H POC Glucose (mg/dL) (70 - 110 MG/DL) 159 H 122 H 102 Ionized Calcium Tenzin (1.09 - 1.30 MMOL/L) 1.17 07/11 Chemistry Sodium (134 - 147 mEq/L) 136 137 Potassium (3.4 - 5.0 mEq/L) 4.8 4.7 Chloride (100 - 108 mEq/L) 103 105 Carbon Dioxide (21 - 33 mEq/l) 24 23 Anion Gap (0 - 20) 14 14 BUN (7 - 18 mg/dL) 32 H 26 H Creatinine (0.6 - 1.3 mg/dL) 3.2 H 2.9 H POC Creatinine (0.8 - 1.3 mg/dL) 3.3 H Glomerular Filtr Rate (70 - 80) 19.0 L 21.3 L Glucose (70 - 110 mg/dL) 103 141 H POC Glucose (70 - 110 MG/DL) 126 H POC Glucose (mg/dL) (70 - 110 MG/DL) 109 Calcium (8.0 - 10.5 mg/dL) 9.0 8.6 Ionized Calcium Tenzin (1.09 - 1.30 1.14 MMOL/L) Magnesium (1.80 - 2.40 mg/dL) 2.89 H 2.63 H Total Bilirubin (0.0 - 1.0 mg/dL) 0.40 Direct Bilirubin (0.0 - 0.30 MG/DL) 0.20 Indirect Bilirubin (MG/DL) 0.20 AST (15 - 37 IUnit/L) 36 ALT (30 - 65 IUnit/L) < 7 L Total Alk Phosphatase (20 - 125 IUnit/L) 105 Total Protein (6.4 - 8.2 g/dL) 6.1 L Albumin (3.4 - 5.0 g/dL) 3.30 L Laboratory Tests 07/11 228 Hematology WBC (4.5 - 11.0 x10 3/uL) 22.2 H RBC (4.00 - 5.60 x10 6/uL) 2.91 L Hgb (12.5 - 16.9 g/dL) 8.6 L Hct (37.5 - 50.7 %) 27.7 L MCV (81.0 - 99.0 fL) 95.2 MCH (27.0 - 33.0 pg) 29.6 MCHC (33.0 - 37.0 g/dL) 31.0 L RDW (11.5 - 14.5 %) 18.1 H Plt Count (150 - 400 x10 3/uL) 100 L MPV (7.0 - 9.0 fL) 11.8 H Neut % (Auto) (56.0 - 77.0 %) 86.3 H Lymph % (Auto) (14.0 - 32.0 %) 4.2 L [place] % (Auto) (4.8 - 9.0 %) 7.5 Eos % (Auto) (0.3 - 3.7 %) 0.8 Baso % (Auto) (0.0 - 2.0 %) 0.3 Neut # (Auto) (2.0 - 7.6 x10 3/uL) 19.22 H Lymph # (Auto) (1.0 - 3.8 x10 3/uL) 0.93 L [place] # (Auto) (0.1 - 0.8 x10 3/uL) 1.66 H Eos # (Auto) (0.0 - 0.2 x10 3/uL) 0.17 Baso # (Auto) (0.0 - 0.2 x10 3/uL) 0.06 Abs Immat Gran (auto) (0.00 - 0.03 x10 3/uL) 0 .19 H Add Manual Diff NO Immature Gran % (0.0 - 2.0 %) 0.9 Nucleated RBC % (0 - 0 %) 0.0 Nucleated RBCs # (Man) (0.0 - 0.1 x10 3/uL) 0.0 0 Immature Plt Fraction (0.9 - 11.2 %) 6.5 Radiology data: Recent Impressions: RADIOLOGY - XR CHEST 1 V 07/11 1599 Report Impression - Status: SIGNED Entered: 07/11/2022 6592 IMPRESSION: 1. Moderate enlarged cardiac silhouette. 2. Small bilateral pleural effusions. 3. Moderate to severe pulmonary edema versus inf iltrates, pneumonia. Progression of opacities within right lower chest. 4. Degenerative and postsurgical changes are dem onstrated, as described above. Impression By: [email or web address] - Manuel Vega M.D. Diagnosis, Assessment Plan Free Text A P: Assessment: 1-CLAUDETTE likely from urinary retention. oliguric AK I now post op, from shock! 2- non-STEMI: multivessel disease w main left. 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 Waters catheter is in place. 4-severe bilateral hydronephrosis 5- shock : Cardiogenic 6-hyperlipidemia Plan: - unknown Scr baseline. - He underwent LHC on 07/03. Started on HD withou t UF on 07/04 for clearance - Ultrasound showed severe bilateral hydronephro sis. Continue Waters catheter. Urology consulted. - s/p CABG X5 on 07/08 - hemodynamic support, titrate vasopressors for MAP>65. - on dopamine to improve catherine al perfusion but still anuric. recommend to increase dopamine dose to vasoconstri ctive dose. Gave albumin + diuretic challenge dose. - no emergent need for HD. - continue Waters catheter and strict intake and output Discussed with patient and cardiothoracic surger y team Consultants: cardiology, cardiovascular surgery, nephrology Electronically Signed by Evelina Plaza MD on 08/28 at 1606 RPT #:[id number] END OF REPORT 2022-07-11 14:32:00-00:00 [facility]ACL [facility] ([facility]) Cardiology Progress Note REPORT#:[id number] REPORT STATUS: Signed DATE:07/11/22 TIME: 1432 PATIENT: SHERRI ARCE UNIT #: [id number] ROOM/BED: [place] [address] : 42 AGE: 81 SEX: M ATTEND: Radha Ward ADM AUTHOR: Sonya Stacy CNP * ALL edits or amendments must be made on the [email or web address] document * Subjective Comments: Awake and alert Hypotension, unable to wean off pressrors Objective General VS/I O: 24 hour I O ending at 0700: 07/11 0700 07/10 1900 Intake Total 1017.00 1283.00 Output Total 240 1027 Balance 777.00 256.00 Intake, IV 427.00 383.00 Intake, Oral 240 560 Intake, Oral 240 Supplement Intake, Other 100 Intake, 350 Packed Cells Number Voids Output, CRRT 489 Ultrafiltration Output, Chest 200 395 Tube Drainage Output, Urine 40 143 Patient 92 kg Weight Weight Bed scale Measurement Method Vital Signs: Date Time Temp Pulse Resp B/P B/P Pulse O2 O2 F low FiO2 Mean Ox Delivery Rate 07/11 0800 Nasal 5 cannula 07/11 0746 94 Nasal 5 cannula 07/11 0556 37.4 87 30 128/44 62 95 02/03 0530 37.4 88 121/41 59 93 02/03 0500 37.5 92 120/46 63 93 02/03 0430 37.6 88 28 127/45 63 90 02/03 0400 121/44 62 02/03 0400 37.6 91 27 97/54 68 90 02/03 0330 135/47 66 02/03 0330 37.5 87 27 106/59 78 93 02/03 0300 136/46 65 02/03 0300 37.5 87 25 103/59 77 93 02/03 0230 126/44 62 02/03 0230 37.5 86 26 100/57 75 92 02/03 0200 128/45 63 02/03 0200 37.5 85 26 100/57 74 92 02/03 0130 133/44 63 02/03 0130 37.5 84 25 100/56 74 92 02/03 0115 37.5 84 24 137/45 64 92 02/03 0100 140/45 65 02/03 0100 37.4 84 25 105/55 76 93 02/03 0030 131/44 63 02/03 0030 37.4 82 25 102/55 75 93 02/03 0000 37.4 82 28 104/56 77 91 02/02 2300 125/42 60 02/02 2300 37.5 85 25 104/54 74 90 02/02 2230 136/43 64 02/02 2230 37.4 91 25 109/55 78 91 02/02 2200 141/46 66 02/02 2200 37.7 83 28 122/58 84 93 02/02 2130 38.0 83 28 146/68 98 89 02/02 2100 138/50 70 02/02 2100 37.9 71 29 111/56 77 93 02/02 2030 145/48 68 02/02 2030 37.8 72 29 111/57 79 93 02/02 1999 High flow 2 nasal cannula 02/02 1999 115/36 52 02/02 1999 37.7 76 27 86/47 61 93 02/02 1941 95 Nasal 3 cannula 02/02 1930 108/36 51 02/02 1930 37.8 77 79/45 57 92 02/02 1900 37.8 75 25 77/46 57 93 02/02 1845 37.8 76 26 99/34 49 93 02/02 1830 120/40 56 02/02 1830 37.8 78 27 86/48 62 94 02/02 1815 37.8 77 29 113/37 53 94 02/02 1800 37.8 76 31 77/43 55 94 02/02 1745 37.8 77 29 88/32 46 95 02/02 1730 74 31 72/38 51 94 02/02 1715 75 43 58/15 31 89 02/02 1700 74 28 75/37 47 95 02/02 1645 82 33 78/28 44 91 02/02 1630 80 32 81/49 60 95 02/02 1615 81 43 106/29 47 96 02/02 1600 83 45 83/49 62 97 PATIENT WEIGHT: Weight (lb): 202 Weight (oz): 13.2 Weight (kg): 92.000 Medications: Active Meds + DC'd Last 24 Hrs Ipratropium Kersey (ATROVENT) 500 MCG RTQ2H PRN PRN INH Midodrine (PROAMATINE) 2.5 MG 0900,1300,1700 PO Furosemide (LASIX 40 mg/4 mL INJECTION) 60 MG ON CE ONE IV (DC) Lactulose (LACTULOSE) 20 GM DAILY PRN PRN PO Cyanocobalamin (Vitamin B-12 500 mcg tab) 500 MC G DAILY PO Ferrous Sulfate (FERROUS SULFATE) 325 MG DAILY P O Calcium Gluconate/Sodium Chloride (Calcium Gluco hilario 1 GM/NS 50 mL) 50 ML ONCE ONE IV (DC) Dopamine HCl/Dextrose (DOPamine 400MG/D5W 250ML) 250 ML ASDIR IV Bisacodyl (DULCOLAX) 10 MG ONCE PRN RECTAL Insulin Human Lispro (HUMALOG) 0 AC HS SUBQ (DC) Atorvastatin Calcium (LIPITOR) 40 MG 2100 PO Clopidogrel Bisulfate (Plavix) 75 MG DAILY PO Polyethylene Glycol (MIRALAX) 17 GM DAILY PO Miscellaneous Information (PHARMACY TO DOSE/EVAL UATE) 1 EACH ASDIR MISC Calcium Chloride (CALCIUM CHLORIDE) 1 GM ASDIR P RN IV Sodium Chloride (SODIUM CHLORIDE 0.9%) 100 ML Calcium Chloride (CALCIUM CHLORIDE) 2 GM ASDIR P RN IV Sodium Chloride (SODIUM CHLORIDE 0.9%) 100 ML Magnesium Sulfate (MAGNESIUM SULFATE 4GM/SWFI 10 0ML) 100 ML ASDIR PRN IV Magnesium Sulfate (MAGNESIUM SULFATE 2GM/SWFI 50 ML) 50 ML ASDIR PRN IV Miscellaneous (PRISMASATE BGK 4/2.5 SOLUTION) 5, 000 ML ASDIR DIALYSIS Potassium Chloride (KCL 10MEQ/SWFI 50ML) 50 ML A SDIR PRN IV Sodium Chloride (SODIUM CHLORIDE 0.9%) 2,000 ML ASDIR PRN IV Sodium Phosphate (SODIUM PHOSPHATE) 25 MMOL ASDI R PRN IV Sodium Chloride (SODIUM CHLORIDE 0.9%) 250 ML Sodium Phosphate (SODIUM PHOSPHATE) 20 MMOL ASDI R PRN IV Sodium Chloride (SODIUM CHLORIDE 0.9%) 250 ML Sodium Phosphate (SODIUM PHOSPHATE) 15 MMOL ASDI R PRN IV Sodium Chloride (SODIUM CHLORIDE 0.9%) 250 ML Pantoprazole (PROTONIX) 40 MG DAILY@0600 PO Aspirin (ASPIRIN) 81 MG DAILY PO Vasopressin (VASOSTRICT 20 Unit/NS 100ML) 100 ML ASDIR IV (CKD) Amiodarone HCl (CORDARONE) 200 MG TID PO Docusate Sodium (COLACE) 100 MG BID PO Gabapentin (NEURONTIN) 200 MG BID PO Metoprolol Tartrate (LOPRESSOR) 12.5 MG Q12HR PO Mupirocin (BACTROBAN 2% 22 GM OINTMENT) 1 APPLIC BID NASAL Sennosides (Senna Lax 8.6 MG TABLET) 17.2 MG BED TIME PO Ipratropium Kersey (ATROVENT) 500 MCG RTQ4H INH Acetaminophen (TYLENOL) 650 MG Q4H PRN PRN PO Acetaminophen (TYLENOL) 650 MG Q4H PRN PRN RECTA L Calcium Chloride (CALCIUM CHLORIDE) 1 GM ASDIR P RN IV Dextrose/Water (DEXTROSE 10% IN WATER) 125 ML DIR PRN IV (CKD) Dextrose/Water (DEXTROSE 10% IN WATER) 250 ML DIR PRN IV (CKD) Epinephrine (ADRENALIN CHLORIDE) 4 MG ASDIR IV Dextrose/Water (DEXTROSE 5% WATER) 246 ML Glucagon (GLUCAGON) 1 MG ASDIR PRN IM Magnesium Sulfate (MAGNESIUM SULFATE 4GM/SWFI 10 0ML) 100 ML ASDIR PRN IV Magnesium Sulfate (MAGNESIUM SULFATE 2GM/SWFI 50 ML) 50 ML ASDIR PRN IV Magnesium Sulfate/Dextrose (MAGNESIUM SULFATE 1G M/D5W 100ML) 100 ML ASDIR PRN IV Nitroglycerin/Dextrose (NITROGLYCERIN 50,000MCG/ D5W 250ML) 250 ML ASDIR IV Norepinephrine Bitartrate (NOREPINEPHRINE 8 MG/N S 250 ML) 250 ML TITRATE IV Ondansetron HCl (ZOFRAN) 4 MG Q6H PRN PRN IV Oxycodone HCl (ROXICODONE) 5 MG Q4H PRN PRN PO Oxycodone HCl (ROXICODONE) 10 MG Q4H PRN PRN PO Potassium Chloride (KCL 20MEQ/SWFI 100ML) 100 ML ASDIR PRN IV Sodium Bicarbonate (SODIUM BICARBONATE) 50 MEQ A SDIR PRN IV Sodium Chloride (SODIUM CHLORIDE 0.9%) 1,000 ML .Q20H IV Sodium Chloride (SODIUM CHLORIDE 0.9%) 250 ML Q2 4H IV Albumin Human (ALBUMINAR-25%) 12.5 GM ASDIR PRN IV Heparin Sodium (Porcine) (HEPARIN SODIUM) 3,000 UNIT ASDIR PRN DIALYSIS Lidocaine HCl (LIDOCAINE HCL/PF) 0.5 ML ASDIR NV N I-DERMAL (CKD) Mannitol (Mannitol 20%) 12.5 GM ASDIR PRN IV Sodium Chloride (SODIUM CHLORIDE 0.9%) 2,000 ML ASDIR PRN IV Tamsulosin HCl (Flomax 0.4 mg) 0.4 MG BEDTIME PO Physical Exam General appearance: alert, awake, oriented, no a cute distress, pleasant Neck: full range of motion, no JVD Cardiovascular: CV assessment: pedal edema (RLE - trace), regul ar rate and rhythm, no murmur Respiratory: decreased breath sounds, no distres s Abdomen: soft, non-tender, normal bowel sounds, no distention, no guarding Genitourinary: urinary catheter, urine Upper extremity: UE assessment: normal temperature, no edema Lower extremity: LE assessment: edema (RLE trace), normal temper ature, no edema Musculoskeletal: normal inspection 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: alert, oriented X 3, normal speech Skin: dry Psychiatry: normal affect Results Findings/Data: Laboratory Tests 07/11 07/11 07/11 0948 0430 0226 Blood Gas Puncture Site Art Line [place] Ally Art Line O2 Saturation (90 - 100 %) 93.9 91.8 ABG pH (7.35 - 7.45) 7.381 7.375 ABG pCO2 (35.0 - 45 mmHg) 36.5 40.6 ABG pO2 (80 - 100.0 mmHg) 71.5 L 64.8 L ABG HCO3 (22.0 - 26.0 MMOL/L) 21.7 L 23.8 ABG Total CO2 22.8 25.0 ABG Base Excess (-4.0 - 4.0 MMOL/L) -3.4 -1.4 ABG Hematocrit (37.5 - 50.7 %) 27 L 31 L 27 L ABG Hemoglobin (12.5 - 16.9 G/DL) 9.2 L 10.5 L 9.3 L Marylu Test N/A VBG pH (7.33 - 7.45) 7.369 VBG pCO2 (43 - 47 mmHg) 42.1 L VBG pO2 (10 - 50 mmHG) 30.2 VBG HCO3 (22 - 27 MMOL/L) 24.3 POC VBG Total CO2 25.6 VBG O2 Saturation (60 - 80 %) 55.6 L VBG Base Excess (-4.0 - 4.0 MMOL/L) -1.0 Sodium (134 - 147 mmol/L) 133 L 135 135 Potassium (3.4 - 5.0 mmol/L) 4.9 4.7 4.7 Chloride (100 - 108 mmol/L) 103 105 101 Ionized Calcium (1.12 - 1.32 MMOL/L) 1.25 1.26 1.26 Lactic Acid (0.9 - 1.7 mmol/l) 0.5 L 0.4 L 0.5 L Temperature (F) 98.8 O2 Delivery Device Cannula HFNC HFNC Laboratory Tests 07/11 07/11 07/11 07/11 07/11 0948 0743 0430 0229 0229 Chemistry Sodium (134 - 147 mEq/L) 136 Potassium (3.4 - 5.0 mEq/L) 4.8 Chloride (100 - 108 mEq/L) 103 Carbon Dioxide (21 - 33 mEq/l) 24 Anion Gap (0 - 20) 14 BUN (7 - 18 mg/dL) 32 H Creatinine (0.6 - 1.3 mg/dL) 3.2 H POC Creatinine (0.8 - 1.3 mg/dL) 3.6 H 3.6 H Glomerular Filtr Rate (70 - 80) 19.0 L Glucose (70 - 110 mg/dL) 103 POC Glucose (70 - 110 MG/DL) 117 H POC Glucose (mg/dL) (70 - 110 MG/DL) 122 H 102 Calcium (8.0 - 10.5 mg/dL) 9.0 Magnesium (1.80 - 2.40 mg/dL) 2.89 H Total Bilirubin (0.0 - 1.0 mg/dL) 0.40 Direct Bilirubin (0.0 - 0.30 MG/DL) 0.20 Indirect Bilirubin (MG/DL) 0.20 AST (15 - 37 IUnit/L) 36 ALT (30 - 65 IUnit/L) < 7 L Total Alk Phosphatase (20 - 125 105 IUnit/L) Total Protein (6.4 - 8.2 g/dL) 6.1 L Albumin (3.4 - 5.0 g/dL) 3.30 L 07/11 1445 Chemistry Sodium (134 - 147 mEq/L) 137 136 Potassium (3.4 - 5.0 mEq/L) 4.7 4.8 Chloride (100 - 108 mEq/L) 105 104 Carbon Dioxide (21 - 33 mEq/l) 23 25 Anion Gap (0 - 20) 14 12 BUN (7 - 18 mg/dL) 26 H 24 H Creatinine (0.6 - 1.3 mg/dL) 2.9 H 2.6 H POC Creatinine (0.8 - 1.3 mg/dL) 3.3 H Glomerular Filtr Rate (70 - 80) 21.3 L 24.3 L Glucose (70 - 110 mg/dL) 141 H 183 H POC Glucose (70 - 110 MG/DL) 126 H POC Glucose (mg/dL) (70 - 110 MG/DL) 109 Calcium (8.0 - 10.5 mg/dL) 8.6 8.8 Ionized Calcium Tenzin (1.09 - 1.30 MMOL/L) 1.14 1.19 Phosphorus (2.5 - 4.9 MG/DL) 3.2 Magnesium (1.80 - 2.40 mg/dL) 2.63 H 2.39 Laboratory Tests 07/11 Hematology WBC (4.5 - 11.0 x10 3/uL) 22.2 H 24.7 H RBC (4.00 - 5.60 x10 6/uL) 2.91 L 2.45 L Hgb (12.5 - 16.9 g/dL) 8.6 L 7.5 L Hct (37.5 - 50.7 %) 27.7 L 23.6 L MCV (81.0 - 99.0 fL) 95.2 96.3 MCH (27.0 - 33.0 pg) 29.6 30.6 MCHC (33.0 - 37.0 g/dL) 31.0 L 31.8 L RDW (11.5 - 14.5 %) 18.1 H 18.0 H Plt Count (150 - 400 x10 3/uL) 100 L 91 L MPV (7.0 - 9.0 fL) 11.8 H 12.0 H Neut % (Auto) (56.0 - 77.0 %) 86.3 H 89.7 H Lymph % (Auto) (14.0 - 32.0 %) 4.2 L 3.2 L [place] % (Auto) (4.8 - 9.0 %) 7.5 5.4 Eos % (Auto) (0.3 - 3.7 %) 0.8 0.4 Baso % (Auto) (0.0 - 2.0 %) 0.3 0.2 Neut # (Auto) (2.0 - 7.6 x10 3/uL) 19.22 H 22.1 4 H Lymph # (Auto) (1.0 - 3.8 x10 3/uL) 0.93 L 0.79 L [place] # (Auto) (0.1 - 0.8 x10 3/uL) 1.66 H 1.32 H Eos # (Auto) (0.0 - 0.2 x10 3/uL) 0.17 0.09 Baso # (Auto) (0.0 - 0.2 x10 3/uL) 0.06 0.06 Abs Immat Gran (auto) (0.00 - 0.03 x10 3/uL) 0. 19 H 0.26 H Add Manual Diff NO NO Immature Gran % (0.0 - 2.0 %) 0.9 1.1 Nucleated RBC % (0 - 0 %) 0.0 0.0 Nucleated RBCs # (Man) (0.0 - 0.1 x10 3/uL) 0. 00 0.00 Immature Plt Fraction (0.9 - 11.2 %) 6.5 Laboratory Tests 07/11 1445 Chemistry Magnesium (1.80 - 2.40 mg/dL) 2.89 H 2.63 H 2.3 9 Radiology data: Recent Impressions: RADIOLOGY - XR CHEST 1 V 07/11 1417 Report Impression - Status: SIGNED Entered: 07/11/2022 1001 IMPRESSION: 1. Moderate enlarged cardiac silhouette. 2. Small bilateral pleural effusions. 3. Moderate to severe pulmonary edema versus inf iltrates, pneumonia. Progression of opacities within right lower chest. 4. Degenerative and postsurgical changes are dem onstrated, as described above. Impression By: [email or web address] - Manuel Vega M.D. Results: labs reviewed, vital signs reviewed, [facility] personally rev'd Telemetry Interpretation: sinus rhythm Diagnosis, Assessment Plan Plan discussed with: patient, nurse Free Text DxA P Notes Free Text DxA P Notes: Mr. Arce is a pleasant 81 y/o M w/ PMHx: HTN, HLD presented to [facility] on 06/28/22 for chest pa in and sob. He was diagnosed NSTEMI w/ Trop was peaked 7600's, EKG w/ normal ST and CLAUDETTE w/ Cr 14 on admission. He underwent LHC on 07/[address] Layne which showed severe mLM 70% stenosis, pLAD diffuse 80% stenosis, mLA D 60% and focal 70% stenosis; pLCx 80% stenosis, dLCx 70% stenosis, pOM 60% stenosis; p RCA 40% stenosis, mRCA 60% stenosis and diffuse 50-60% dRCA. He transferred to [facility] for CABG. 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 On statins, BB, ASA, plavix- as tolerated Echo: LVEF 30-34%, CXR 2/2 small left apical pneumothorax, chest t ube in place Postop care per CTS - Acute Systolic HF with ischemic CMP LVEF 30-34 % strict I/Os, daily weights, fluid restriction, low NA diet diuresis as needed per Nephrology no charly/arb/aldactone due to CLAUDETTE Iniriate GDMT as tolerated, when of pressors persistent hypotension - on vaso and low dose D opamine repeat echocardiogram - CLAUDETTE. HD Per nephro. likely from obstructive uropathy. s/p waters cath. Renal ultrasound showed severe thickening of th e bladder, cholelitiasis. - HTN. hypotension post-op on vasopressin and low dose Dopamine - HLD. On statins. - Anemia. monitor at 1445 Electronically Signed by Liset Ennis MD on at 3333 RPT #:[id number] END OF REPORT 2022-07-11 11:16:00-00:00 [facility] ([facility] Cardiothoracic Surgery Prog REPORT#:[id number] REPORT STATUS: Signed DATE:07/11/22 TIME: 1116 PATIENT: SHERRI ARCE UNIT #: [id number] ROOM/BED: 3354-1 : 42 AGE: 81 SEX: M ATTEND: Sam Mcarthur MD ADM AUTHOR: Gianna Hoover * ALL edits or amendments must be made on the [email or web address] document * General Post-op: day 3 Status post: 07/08/22 CABG x 5 (MISTRY-LAD, SVG-Ladonna, SVG-OM1< SVG-OM3, SVG-PDA) ALAA EVH (RGSV) Subjective Chief complaint: Chest Pain Pre CABG eval s/p CABG no complaints Review of Systems Constitutional: Denies: chills, fever, malaise. Allergy/Immun: Denies: allergic reaction. Respiratory: Denies: SOB. Cardiovascular: Denies: chest pain, palpitations. GI: Denies: abdominal pain, nausea, vomiting. : Denies: dysuria, hematuria. Heme: Denies: bleeding. Neuro: Denies: dizziness, headache, vision change. All systems rev neg: except as marked Objective General VS/I O Last Documented: Result Date Time O2 Delivery Nasal cannula 07/11 0800 O2 Flow Rate 5 07/11 0800 Pulse Ox 94 07/11 0746 B/P 128/44 07/11 0556 B/P Mean 62 07/11 0556 Temp 99.3 07/11 0556 Pulse 87 07/11 0556 Resp 30 07/11 0556 FiO2 50 07/08 1919 24 hour I O ending at 0700: 07/11 0700 07/10 1900 Intake Total 1017.00 1283.00 Output Total 240 1027 Balance 777.00 256.00 Intake, IV 427.00 383.00 Intake, Oral 240 560 Intake, Oral 240 Supplement Intake, Other 100 Intake, 350 Packed Cells Number Voids Output, CRRT 489 Ultrafiltration Output, Chest 200 395 Tube Drainage Output, Urine 40 143 Patient 92 kg Weight Weight Bed scale Measurement Method PATIENT WEIGHT: Weight (lb): 202 Weight (oz): 13.2 Weight (kg): 92.000 Dietitian Nutrition assessment The data set between the solid lines has been im ported from the dietitian's assessment. BMI Calculated: 27.5 Nutrition related diagnosis: Nutrition diagnosis details: Nutrition problem: Increased nutrient needs Nutrition etiology: Chronic disease Nutrition signs and symptoms: ESTIMATED NEEDS S/ P CABG Nutrition prescription: 1. R ECOMMEND CONTIUE CARDIAC DIET, MONITOR LABS WITH PT ON DIALYSIS. 2. CONTINUE NEPRO BID. 3. DIET EDUC ATION PRIOR TO DISCHARGE. 4. MONITOR PO, WT, LABS, BM. Dietitian name: Trang Rodriguez, DIET Assessment completed: 07/10/22 Physical Exam General appearance: alert, awake, oriented Wound/incision: Location: sternal Site condition: dressing clean dry, dressing in tact HEENT: anicteric, mucosal membranes moist Neck: supple/no meningismus Cardiovascular: normal heart sounds, regular rat e rhythm Respiratory: aerating well, symmetric expansion, no distress Abdomen: soft, non-tender, no distention Genitourinary: waters, oN hd Extremities: moves all 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ALTH: alert, oriented X 3, normal speech, n o motor deficits Psychiatry: normal affect, normal mood Current Medications Medications: Active Meds + DC'd Last 24 Hrs Ipratropium Kersey (ATROVENT) 500 MCG RTQ2H PRN PRN INH Cyanocobalamin (Vitamin B-12 500 mcg tab) 500 MC G DAILY PO Ferrous Sulfate (FERROUS SULFATE) 325 MG DAILY P O Calcium Gluconate/Sodium Chloride (Calcium Gluco hilario 1 GM/NS 50 mL) 50 ML ONCE ONE IV (DC) Dopamine HCl/Dextrose (DOPamine 400MG/D5W 250ML) 250 ML ASDIR IV Bisacodyl (DULCOLAX) 10 MG ONCE PRN RECTAL Magnesium Hydroxide (MILK OF MAGNESIA) 30 ML ONC E PRN PO (DC) Insulin Human Lispro (HUMALOG) 0 AC HS SUBQ Atorvastatin Calcium (LIPITOR) 40 MG 2100 PO Clopidogrel Bisulfate (Plavix) 75 MG DAILY PO Polyethylene Glycol (MIRALAX) 17 GM DAILY PO Miscellaneous Information (PHARMACY TO DOSE/EVAL UATE) 1 EACH ASDIR MISC Calcium Chloride (CALCIUM CHLORIDE) 1 GM ASDIR P RN IV Sodium Chloride (SODIUM CHLORIDE 0.9%) 100 ML Calcium Chloride (CALCIUM CHLORIDE) 2 GM ASDIR P RN IV Sodium Chloride (SODIUM CHLORIDE 0.9%) 100 ML Magnesium Sulfate (MAGNESIUM SULFATE 4GM/SWFI 10 0ML) 100 ML ASDIR PRN IV Magnesium Sulfate (MAGNESIUM SULFATE 2GM/SWFI 50 ML) 50 ML ASDIR PRN IV Miscellaneous (PRISMASATE BGK 4/2.5 SOLUTION) 5, 000 ML ASDIR DIALYSIS Potassium Chloride (KCL 10MEQ/SWFI 50ML) 50 ML A SDIR PRN IV Sodium Chloride (SODIUM CHLORIDE 0.9%) 2,000 ML ASDIR PRN IV Sodium Phosphate (SODIUM PHOSPHATE) 25 MMOL ASDI R PRN IV Sodium Chloride (SODIUM CHLORIDE 0.9%) 250 ML Sodium Phosphate (SODIUM PHOSPHATE) 20 MMOL ASDI R PRN IV Sodium Chloride (SODIUM CHLORIDE 0.9%) 250 ML Sodium Phosphate (SODIUM PHOSPHATE) 15 MMOL ASDI R PRN IV Sodium Chloride (SODIUM CHLORIDE 0.9%) 250 ML Pantoprazole (PROTONIX) 40 MG DAILY@0600 PO Aspirin (ASPIRIN) 81 MG DAILY PO Vasopressin (VASOSTRICT 20 Unit/NS 100ML) 100 ML ASDIR IV (CKD) Amiodarone HCl (CORDARONE) 200 MG TID PO Docusate Sodium (COLACE) 100 MG BID PO Gabapentin (NEURONTIN) 200 MG BID PO Metoprolol Tartrate (LOPRESSOR) 12.5 MG Q12HR PO Mupirocin (BACTROBAN 2% 22 GM OINTMENT) 1 APPLIC BID NASAL Sennosides (Senna Lax 8.6 MG TABLET) 17.2 MG BED TIME PO Ipratropium Kersey (ATROVENT) 500 MCG RTQ4H INH Acetaminophen (TYLENOL) 650 MG Q4H PRN PRN PO Acetaminophen (TYLENOL) 650 MG Q4H PRN PRN RECTA L Calcium Chloride (CALCIUM CHLORIDE) 1 GM ASDIR P RN IV Dextrose/Water (DEXTROSE 10% IN WATER) 125 ML DIR PRN IV (CKD) Dextrose/Water (DEXTROSE 10% IN WATER) 250 ML DIR PRN IV (CKD) Epinephrine (ADRENALIN CHLORIDE) 4 MG ASDIR IV Dextrose/Water (DEXTROSE 5% WATER) 246 ML Glucagon (GLUCAGON) 1 MG ASDIR PRN IM Magnesium Sulfate (MAGNESIUM SULFATE 4GM/SWFI 10 0ML) 100 ML ASDIR PRN IV Magnesium Sulfate (MAGNESIUM SULFATE 2GM/SWFI 50 ML) 50 ML ASDIR PRN IV Magnesium Sulfate/Dextrose (MAGNESIUM SULFATE 1G M/D5W 100ML) 100 ML ASDIR PRN IV Nitroglycerin/Dextrose (NITROGLYCERIN 50,000MCG/ D5W 250ML) 250 ML ASDIR IV Norepinephrine Bitartrate (NOREPINEPHRINE 8 MG/N S 250 ML) 250 ML TITRATE IV Ondansetron HCl (ZOFRAN) 4 MG Q6H PRN PRN IV Oxycodone HCl (ROXICODONE) 5 MG Q4H PRN PRN PO Oxycodone HCl (ROXICODONE) 10 MG Q4H PRN PRN PO Potassium Chloride (KCL 20MEQ/SWFI 100ML) 100 ML ASDIR PRN IV Sodium Bicarbonate (SODIUM BICARBONATE) 50 MEQ A SDIR PRN IV Sodium Chloride (SODIUM CHLORIDE 0.9%) 1,000 ML .Q20H IV Sodium Chloride (SODIUM CHLORIDE 0.9%) 250 ML Q2 4H IV Albumin Human (ALBUMINAR-25%) 12.5 GM ASDIR PRN IV Heparin Sodium (Porcine) (HEPARIN SODIUM) 3,000 UNIT ASDIR PRN DIALYSIS Lidocaine HCl (LIDOCAINE HCL/PF) 0.5 ML ASDIR NV N I-DERMAL (CKD) Mannitol (Mannitol 20%) 12.5 GM ASDIR PRN IV Sodium Chloride (SODIUM CHLORIDE 0.9%) 2,000 ML ASDIR PRN IV Tamsulosin HCl (Flomax 0.4 mg) 0.4 MG BEDTIME PO Results Findings/Data: Laboratory Tests 07/11 07/11 07/11 3383 [id number] Blood Gas Puncture Site Art Line [place] Art Line O2 Saturation (90 - 100 %) 93.9 91.8 ABG pH (7.35 - 7.45) 7.381 7.375 ABG pCO2 (35.0 - 45 mmHg) 36.5 40.6 ABG pO2 (80 - 100.0 mmHg) 71.5 L 64.8 L ABG HCO3 (22.0 - 26.0 MMOL/L) 21.7 L 23.8 ABG Total CO2 22.8 25.0 ABG Base Excess (-4.0 - 4.0 MMOL/L) -3.4 -1.4 ABG Hematocrit (37.5 - 50.7 %) 27 L 31 L 27 L ABG Hemoglobin (12.5 - 16.9 G/DL) 9.2 L 10.5 L 9.3 L Marylu Test N/A VBG pH (7.33 - 7.45) 7.369 VBG pCO2 (43 - 47 mmHg) 42.1 L VBG pO2 (10 - 50 mmHG) 30.2 VBG HCO3 (22 - 27 MMOL/L) 24.3 POC VBG Total CO2 25.6 VBG O2 Saturation (60 - 80 %) 55.6 L VBG Base Excess (-4.0 - 4.0 MMOL/L) -1.0 Sodium (134 - 147 mmol/L) 133 L 135 135 Potassium (3.4 - 5.0 mmol/L) 4.9 4.7 4.7 Chloride (100 - 108 mmol/L) 103 105 101 Ionized Calcium (1.12 - 1.32 MMOL/L) 1.25 1.26 1.26 Lactic Acid (0.9 - 1.7 mmol/l) 0.5 L 0.4 L 0.5 L Temperature (F) 98.8 O2 Delivery Device Cannula [facility] Laboratory Tests 07/11 07/11 07/11 07/11 07/11 0948 0743 0437 7348 0222 Chemistry Sodium (134 - 147 mEq/L) 136 Potassium (3.4 - 5.0 mEq/L) 4.8 Chloride (100 - 108 mEq/L) 103 Carbon Dioxide (21 - 33 mEq/l) 24 Anion Gap (0 - 20) 14 BUN (7 - 18 mg/dL) 32 H Creatinine (0.6 - 1.3 mg/dL) 3.2 H POC Creatinine (0.8 - 1.3 mg/dL) 3.6 H 3.6 H Glomerular Filtr Rate (70 - 80) 19.0 L Glucose (70 - 110 mg/dL) 103 POC Glucose (70 - 110 MG/DL) 117 H POC Glucose (mg/dL) (70 - 110 MG/DL) 122 H 102 Calcium (8.0 - 10.5 mg/dL) 9.0 Magnesium (1.80 - 2.40 mg/dL) 2.89 H Total Bilirubin (0.0 - 1.0 mg/dL) 0.40 Direct Bilirubin (0.0 - 0.30 MG/DL) 0.20 Indirect Bilirubin (MG/DL) 0.20 AST (15 - 37 IUnit/L) 36 ALT (30 - 65 IUnit/L) < 7 L Total Alk Phosphatase (20 - 125 IUnit/L) 105 Total Protein (6.4 - 8.2 g/dL) 6.1 L Albumin (3.4 - 5.0 g/dL) 3.30 L 07/11 1445 1156 Chemistry Sodium (134 - 147 mEq/L) 137 136 Potassium (3.4 - 5.0 mEq/L) 4.7 4.8 Chloride (100 - 108 mEq/L) 105 104 Carbon Dioxide (21 - 33 mEq/l) 23 25 Anion Gap (0 - 20) 14 12 BUN (7 - 18 mg/dL) 26 H 24 H Creatinine (0.6 - 1.3 mg/dL) 2.9 H 2.6 H POC Creatinine (0.8 - 1.3 mg/dL) 3.3 H Glomerular Filtr Rate (70 - 80) 21.3 L 24.3 L Glucose (70 - 110 mg/dL) 141 H 183 H POC Glucose (70 - 110 MG/DL) 126 H 146 H POC Glucose (mg/dL) (70 - 110 MG/DL) 109 Calcium (8.0 - 10.5 mg/dL) 8.6 8.8 Ionized Calcium Tenzin (1.09 - 1.30 MMOL/L) 1.14 1.19 Phosphorus (2.5 - 4.9 MG/DL) 3.2 Magnesium (1.80 - 2.40 mg/dL) 2.63 H 2.39 Laboratory Tests 07/11 1445 Hematology WBC (4.5 - 11.0 x10 3/uL) 22.2 H 24.7 H RBC (4.00 - 5.60 x10 6/uL) 2.91 L 2.45 L Hgb (12.5 - 16.9 g/dL) 8.6 L 7.5 L Hct (37.5 - 50.7 %) 27.7 L 23.6 L MCV (81.0 - 99.0 fL) 95.2 96.3 MCH (27.0 - 33.0 pg) 29.6 30.6 MCHC (33.0 - 37.0 g/dL) 31.0 L 31.8 L RDW (11.5 - 14.5 %) 18.1 H 18.0 H Plt Count (150 - 400 x10 3/uL) 100 L 91 L MPV (7.0 - 9.0 fL) 11.8 H 12.0 H Neut % (Auto) (56.0 - 77.0 %) 86.3 H 89.7 H Lymph % (Auto) (14.0 - 32.0 %) 4.2 L 3.2 L [place] % (Auto) (4.8 - 9.0 %) 7.5 5.4 Eos % (Auto) (0.3 - 3.7 %) 0.8 0.4 Baso % (Auto) (0.0 - 2.0 %) 0.3 0.2 Neut # (Auto) (2.0 - 7.6 x10 3/uL) 19.22 H 22.1 4 H Lymph # (Auto) (1.0 - 3.8 x10 3/uL) 0.93 L 0.79 L [place] # (Auto) (0.1 - 0.8 x10 3/uL) 1.66 H 1.32 H Eos # (Auto) (0.0 - 0.2 x10 3/uL) 0.17 0.09 Baso # (Auto) (0.0 - 0.2 x10 3/uL) 0.06 0.06 Abs Immat Gran (auto) (0.00 - 0.03 x10 3/uL) 0. 19 H 0.26 H Add Manual Diff NO NO Immature Gran % (0.0 - 2.0 %) 0.9 1.1 Nucleated RBC % (0 - 0 %) 0.0 0.0 Nucleated RBCs # (Man) (0.0 - 0.1 x10 3/uL) 0. 00 0.00 Immature Plt Fraction (0.9 - 11.2 %) 6.5 Results: labs reviewed, vital signs stable, EKG personnaly reviewed, rythm personally rev'd, x-ray personally reviewed, radha rentiffany med profile rev'd Quality: Trauma Gen Surg Advanced Care Plan 65 or Older Discussed with: patient Discussion included: living will (none), power of employment law attorney (none), code status ( full code) VTE Prophylaxis - General VTE prophylaxis initiated: yes Diagnosis, Assessment Plan Hospital course to date: This is a 81-year-old gentleman who presented to an outside hospital with complaints of chest pains while walking at his home on Thursday. He denies any previous history of coronary artery disease or o ther NE. He was seen and evaluated at [facility]. He was found to have a urinary tract infection with urinary retention and acute kidne y. He was started on dialysis via a left femoral temporary catheter. He underw ent dialysis on Thursday, Thursday. Renal has been consulted During his work-up at outside hospital he underw ent Left heart catheterization showing sever e Left Main 70%. LAD: Proximal diffuse 80% stenosis and then diffuse 60% in the midsegment and on the distal segment, there is focal 70% stenosis. Diagonal branches w ith luminal irregularities. Left circumflex, codominant circulation with pro ximal 80%, mid 80 to 90% and then in the OM, there is proximal 60%, distal le ft circumflex has a 70% stenosis. RCA large and dominant with proximal 4 0% stenosis, mid 60% stenosis and then diffuse 50% stenosi s all the way distally and the PLV and the PDA with luminal irregularities. CV surgery consulted for evaluation for coronary bypass graft. CAROTIDS - No carotid stenosis CT chest complete IMPRESSION: Small bilateral pleural effusions with bibasila r atelectasis. Echo: 1. Left ventricle: The cavity size is at the upp er limits of normal. Wall thickness is mildly increased. Systolic fu nction is severely reduced. The estimated ejection fraction is 30- 34%. Moderate hypokinesis of the entire myocardium. Doppler p arameters are consistent with abnormal left ventricular relax ation (grade 1 diastolic dysfunction). 2. Pericardium, extracardiac: A small pericardia l effusion is identified along the left ventricular free wall, along the right ventricular free wall, and along the right atrial free wall . Assessment/Plan 1) CAD Mutlivessel Will obtain echo,carotids. 2) CLAUDETTE Started dialysis on Creatine 7.3 Renal consulted. 3) BPH- Urinary retention. Waters in place Workup for CABG underway. Will get functional assessment with PT. PFT pending Carotid dopplers- No disease Echo Pending Dialyiss per Renal. Baseline Cr unknown. 07/04 07/04 Doing well today, alert, up in the chair. Denies chest pain Echocardiogram showed LVEF 30 to 34%, mild MR, t rivial TR CT chest images reviewed Encourage I-S and mobilization Creatinine 5.5 from 7.3, good urine output. Poa l US showed bilateral severe hydronephrosis. Plan for HD today and tomorrow Will tentatively schedule patient for surgery on Thursday. Patient seen and plan reviewed with Dr Schwarz 07/05 Remains in a stable condition, denies chest pain BUN 53, creatinine 5.4. Plan for hemodia lysis today and tomorrow for clearance He is also on Lasix 20 mg IV twice daily, urine output 1.1 L overnight We will calculate risk of surgery with STS score Encourage I-S and mobilization Will tentatively schedule patient for surgery on Thursday. Pt seen and plan reviewed with Dr Schwarz 07/06 BUN 36, creatinine 4.4. Plan for hemodialysis to day Awaiting CABG tomorrow Surgery, risks involved, STS score, benefits, co mplications and alternatives were explained to the patient. He acknow ledged understanding and is willing to proceed N.p.o. after midnight Patient seen and plan reviewed with Dr. Schwarz 07/09/22 POD 1 CABG x 5 (MISTRY-LAD, SVG-Ladonna, SVG-OM1< SVG-OM3, S VG-PDA), RC ESPINOZA (RGSV) Patient hemodynamically unstable, on epi at 4, a nd vaso .04, decreased uop overnight- 150cc Started patient on CRRT 2k/3.5 Wean epi as tolerated, Cardiac incex 2.8-3 labs and chest x-ray reviewed, electroly marcie stable, hgb 6.5- transfuse 2 units PRBC On 4l nasal cannula- encourage incentive spirome ter and deep breathing Keep both chest tubes and monitor outputs Glycemic control on insulin drip Cardiac diet Bowel regimen protocol Pain management SCDs for DVT and PPI for GI prophylaxis PT/OT Monitor patient closely in CVICU Plan of care discussed with Dr. Schwarz 07/10/22 POD 2 Patient alert, awake, and oriented, no distres n oted labs and CXR reviewed stable Breathing comfortably on 3l nasal cannula- wean as tolerated to melissa O2 sats > 92 % Encourage I-S use and deep breathing On CRRT- able to remove 2.9L overnight- nephrolo gy following Cardiac index 3.1- wean off epi drip Keep chest tubes for now and monitor outputs Transition to sliding scale insulin- cardiac t Try to get patient out of bed to chair today- am bulate with PT/OT SCDs for DVT prophylaxis Keep patient in CVICU for close monitoring 07/11/22 POD 3 Patient in stable condition, overnight e vents noted- decreased urine output 35 ml last night-started on dopamine gtt for renal perfusion Cardiac index 3.5- epi currently at 2- will disc ontinue today, vasopressin at 0.02, added low dose midodrine 2.5 mg TID, repea t echocardiogram. Renal Following- trial Lasix Patient has Left femoral tem p dialysis cath, Will need tunneled dialysis IJ cath placed if need dialysis. On 5l nasal cannula- wean off as tolerat ed, encourage incentive spirometer and deep breathing Keep left pleural chest tube and monitor output- > 200 cc Tolerating diet, bowel regimen protocol PT/OT- patient out of bed to chair today- encour age ambulation DVT prophylaxis with SCDs Monitor patient closely in CVICU Plan discussed with multidisciplinary team Plan discussed with Dr Schwarz/ Dr Rodríguez Consultants: cardiology, cardiovascular surgery, nephrology Electronically Signed by Gianna Hoover PA on 0 07/11/22 at 1625 at 1950 RPT #:[id number] END OF REPORT 2022-07-11 10:54:00-00:00 HCACL [facility] Hospitalist Progress Note REPORT#:[id number] REPORT STATUS: Signed DATE:07/11/22 TIME: 1054 PATIENT: SHERRI ARCE UNIT #: [id number] ROOM/BED: [place] [address] : 42 AGE: 81 SEX: M ATTEND: Radha Ward MD ADM AUTHOR: Radha Ward MD * ALL edits or amendments must be made on the el [employer]/computer document * Subjective Chief complaint: Status post CABG x5 on 07/09, 1 chest tube out, 1 chest tube in, off pressors, CRRT versus hemodialysis as per nephrology, we dilip su consulted. Worked with PT in his room. No pain as reported by patient. HPI: 81 y/o man with PMHx of HTN, Dyslipidemia [facility] with chest pain and found to have a NSTEMI and also acute renal failure. Underwent cardiac c ath yesterday and found to have severe CAD including left main disease. Transfer here f or CABG evaluation. He also underwent HD Thursday and Thursday of this week. HD catheter was place at [facility]. Currently not having any chest pain. Had chest pain with SOB when he presentted to the previous hospital. Objective General VS/I O: Vital Signs: Date Time Temp Pulse Resp B/P B/P Pulse O2 O2 F low FiO2 Mean Ox Delivery Rate / 0800 Nasal 5 cannula 02/ 0746 94 Nasal 5 cannula 02/ 0556 99.3 87 30 128/44 62 95 02/03 0530 99.3 88 121/41 59 93 02/03 0500 99.5 92 120/46 63 93 02/03 0430 99.7 88 28 127/45 63 90 02/03 0400 121/44 62 02/03 0400 99.7 91 27 97/54 68 90 02/03 0330 135/47 66 02/03 0330 99.5 87 27 106/59 78 93 02/03 0300 136/46 65 02/03 0300 99.5 87 25 103/59 77 93 02/03 0230 126/44 62 02/03 0230 99.5 86 26 100/57 75 92 02/03 0200 128/45 63 02/03 0200 99.5 85 26 100/57 74 92 02/03 0130 133/44 63 02/03 0130 99.5 84 25 100/56 74 92 02/03 0115 99.5 84 24 137/45 64 92 02/03 0100 140/45 65 02/03 0100 99.3 84 25 105/55 76 93 02/03 0030 131/44 63 02/03 0030 99.3 82 25 102/55 75 93 02/03 0000 99.3 82 28 104/56 77 91 02/02 2300 125/42 60 02/02 2300 99.5 85 25 104/54 74 90 02/02 2230 136/43 64 02/02 2230 99.3 91 25 109/55 78 91 02/02 2200 141/46 66 02/02 2200 99.9 83 28 122/58 84 93 02/02 2130 100.4 83 28 146/68 98 89 02/02 2100 138/50 70 02/02 2100 100.2 71 29 111/56 77 93 02/02 2030 145/48 68 02/02 2029 100.0 72 29 111/57 79 93 02/02 1999 High flow 2 nasal cannula 02/02 1999 115/36 52 02/02 1999 99.9 76 27 86/47 61 93 02/02 1941 95 Nasal 3 cannula 02/02 1930 108/36 51 02/02 1930 100.0 77 79/45 57 92 02/02 1900 100.0 75 25 77/46 57 93 02/02 1845 100.0 76 26 99/34 49 93 02/02 1830 120/40 56 02/02 1830 100.0 78 27 86/48 62 94 02/02 1815 100.0 77 29 113/37 53 94 02/02 1800 100.0 76 31 77/43 55 94 02/02 1745 100.0 77 29 88/32 46 95 02/02 1730 74 31 72/38 51 94 02/02 1715 75 43 58/15 31 89 02/02 1700 74 28 75/37 47 95 02/02 1645 82 33 78/28 44 91 02/02 1630 80 32 81/49 60 95 02/02 1615 81 43 106/29 47 96 24 hour I O ending at 0700: 03 0700 02/02 1900 Intake Total 1017.00 1283.00 Output Total 240 1027 Balance 777.00 256.00 Intake, IV 427.00 383.00 Intake, Oral 240 560 Intake, Oral 240 Supplement Intake, Other 100 Intake, 350 Packed Cells Number Voids Output, CRRT 489 Ultrafiltration Output, Chest 200 395 Tube Drainage Output, Urine 40 143 Patient 92 kg Weight Weight Bed scale Measurement Method PATIENT WEIGHT: Weight (lb): 202 Weight (oz): 13.2 Weight (kg): 92.000 Medications: Active Meds + DC'd Last 24 Hrs Ipratropium Kersey (ATROVENT) 500 MCG RTQ2H NV N PRN INH Albumin Human (ALBUMINAR 5% 12.5GM/250ML) 250 ML ONCE ONE IV Furosemide (LASIX 40 mg/4 mL INJECTION) 80 MG ON CE ONE IV (DC) Midodrine (PROAMATINE) 2.5 MG 0900,1300,1700 PO Furosemide (LASIX 40 mg/4 mL INJECTION) 60 MG ON CE ONE IV (DC) Lactulose (LACTULOSE) 20 GM DAILY PRN PRN PO Cyanocobalamin (Vitamin B-12 500 mcg tab) 500 MC G DAILY PO Ferrous Sulfate (FERROUS SULFATE) 325 MG DAILY P O Calcium Gluconate/Sodium Chloride (Calcium Gluco hilario 1 GM/NS 50 mL) 50 ML ONCE ONE IV (DC) Dopamine HCl/Dextrose (DOPamine 400MG/D5W 250ML) 250 ML ASDIR IV Bisacodyl (DULCOLAX) 10 MG ONCE PRN RECTAL Insulin Human Lispro (HUMALOG) 0 AC HS SUBQ (DC) Atorvastatin Calcium (LIPITOR) 40 MG 2100 PO Clopidogrel Bisulfate (Plavix) 75 MG DAILY PO Polyethylene Glycol (MIRALAX) 17 GM DAILY PO Miscellaneous Information (PHARMACY TO DOSE/EVAL UATE) 1 EACH ASDIR MISC Calcium Chloride (CALCIUM CHLORIDE) 1 GM ASDIR P RN IV Sodium Chloride (SODIUM CHLORIDE 0.9%) 100 ML Calcium Chloride (CALCIUM CHLORIDE) 2 GM ASDIR P RN IV Sodium Chloride (SODIUM CHLORIDE 0.9%) 100 ML Magnesium Sulfate (MAGNESIUM SULFATE 4GM/SWFI 10 0ML) 100 ML ASDIR PRN IV Magnesium Sulfate (MAGNESIUM SULFATE 2GM/SWFI 50 ML) 50 ML ASDIR PRN IV Miscellaneous (PRISMASATE BGK 4/2.5 SOLUTION) 5, 000 ML ASDIR DIALYSIS Potassium Chloride (KCL 10MEQ/SWFI 50ML) 50 ML A SDIR PRN IV Sodium Chloride (SODIUM CHLORIDE 0.9%) 2,000 ML ASDIR PRN IV Sodium Phosphate (SODIUM PHOSPHATE) 25 MMOL ASDI R PRN IV Sodium Chloride (SODIUM CHLORIDE 0.9%) 250 ML Sodium Phosphate (SODIUM PHOSPHATE) 20 MMOL ASDI R PRN IV Sodium Chloride (SODIUM CHLORIDE 0.9%) 250 ML Sodium Phosphate (SODIUM PHOSPHATE) 15 MMOL ASDI R PRN IV Sodium Chloride (SODIUM CHLORIDE 0.9%) 250 ML Pantoprazole (PROTONIX) 40 MG DAILY@0600 PO Aspirin (ASPIRIN) 81 MG DAILY PO Vasopressin (VASOSTRICT 20 Unit/NS 100ML) 100 ML ASDIR IV (CKD) Amiodarone HCl (CORDARONE) 200 MG TID PO Docusate Sodium (COLACE) 100 MG BID PO Gabapentin (NEURONTIN) 200 MG BID PO Metoprolol Tartrate (LOPRESSOR) 12.5 MG Q12HR PO Mupirocin (BACTROBAN 2% 22 GM OINTMENT) 1 APPLIC BID NASAL Sennosides (Senna Lax 8.6 MG TABLET) 17.2 MG BED TIME PO Ipratropium Kersey (ATROVENT) 500 MCG RTQ4H INH Acetaminophen (TYLENOL) 650 MG Q4H PRN PRN PO Acetaminophen (TYLENOL) 650 MG Q4H PRN PRN RECTA L Calcium Chloride (CALCIUM CHLORIDE) 1 GM ASDIR PRN IV Dextrose/Water (DEXTROSE 10% IN WATER) 125 ML DIR PRN IV (CKD) Dextrose/Water (DEXTROSE 10% IN WATER) 250 ML DIR PRN IV (CKD) Epinephrine (ADRENALIN CHLORIDE) 4 MG ASDIR IV Dextrose/Water (DEXTROSE 5% WATER) 246 ML Glucagon (GLUCAGON) 1 MG ASDIR PRN IM Magnesium Sulfate (MAGNESIUM SULFATE 4GM/SWFI 10 0ML) 100 ML ASDIR PRN IV Magnesium Sulfate (MAGNESIUM SULFATE 2GM/SWFI 50 ML) 50 ML ASDIR PRN IV Magnesium Sulfate/Dextrose (MAGNESIUM SULFATE 1G M/D5W 100ML) 100 ML ASDIR PRN IV Nitroglycerin/Dextrose (NITROGLYCERIN 50,000MCG/ D5W 250ML) 250 ML ASDIR IV Norepinephrine Bitartrate (NOREPINEPHRINE 8 MG/N S 250 ML) 250 ML TITRATE IV Ondansetron HCl (ZOFRAN) 4 MG Q6H PRN PRN IV Oxycodone HCl (ROXICODONE) 5 MG Q4H PRN PRN PO Oxycodone HCl (ROXICODONE) 10 MG Q4H PRN PRN PO Potassium Chloride (KCL 20MEQ/SWFI 100ML) 100 ML ASDIR PRN IV Sodium Bicarbonate (SODIUM BICARBONATE) 50 MEQ A SDIR PRN IV Sodium Chloride (SODIUM CHLORIDE 0.9%) 1,000 ML .Q20H IV Sodium Chloride (SODIUM CHLORIDE 0.9%) 250 ML Q2 4H IV Albumin Human (ALBUMINAR-25%) 12.5 GM ASDIR PRN IV Heparin Sodium (Porcine) (HEPARIN SODIUM) 3,000 UNIT ASDIR PRN DIALYSIS Lidocaine HCl (LIDOCAINE HCL/PF) 0.5 ML ASDIR NV N I-DERMAL (CKD) Mannitol (Mannitol 20%) 12.5 GM ASDIR PRN IV Sodium Chloride (SODIUM CHLORIDE 0.9%) 2,000 ML ASDIR PRN IV Tamsulosin HCl (Flomax 0.4 mg) 0.4 MG BEDTIME PO Physical Exam General appearance: alert, awake, oriented Head/Eyes: atraumatic, EOMI, normal conjunctiva/ sclera, normocephalic, PERRLA ENT: moist mucosal membranes Neck: full range of motion, no bruit/NL carotids , no JVD Cardiovascular: normal heart sounds, regular rat e rhythm Respiratory: aerating well, clear to auscultatio n, symmetric expansion, no distress Abdomen: non-tender, normal bowel sounds , soft, no distention, no guarding, no rebound Extremities: moves all, no cyanosis, no edema Musculoskeletal: normal inspection 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ALTH: alert, oriented X 3, normal speech, n o motor deficits, no sensory deficits Skin: intact, normal color, no rash Psychiatry: normal affect Results Findings/Data: Laboratory Tests 07/11 07/11 07/11 07/11 1551 0948 0430 0226 Blood Gas Puncture Site Art Line Art Line [place] Ally Art Line O2 Saturation (90 - 100 %) 95.2 93.9 91.8 ABG pH (7.35 - 7.45) 7.347 L 7.381 7.375 ABG pCO2 (35.0 - 45 mmHg) 37.9 36.5 40.6 ABG pO2 (80 - 100.0 mmHg) 80.5 71.5 L 64.8 L ABG HCO3 (22.0 - 26.0 MMOL/L) 20.8 L 21.7 L 23. 8 ABG Total CO2 22.0 22.8 25.0 ABG Base Excess (-4.0 - 4.0 MMOL/L) -4.8 L -3.4 -1.4 ABG Hematocrit (37.5 - 50.7 %) 27 L 27 L 31 L 2 7 L ABG Hemoglobin (12.5 - 16.9 G/DL) 9.3 L 9.2 L 1 0.5 L 9.3 L Marylu Test N/A N/A VBG pH (7.33 - 7.45) 7.369 VBG pCO2 (43 - 47 mmHg) 42.1 L VBG pO2 (10 - 50 mmHG) 30.2 VBG HCO3 (22 - 27 MMOL/L) 24.3 POC VBG Total CO2 25.6 VBG O2 Saturation (60 - 80 %) 55.6 L VBG Base Excess (-4.0 - 4.0 MMOL/L) -1.0 Sodium (134 - 147 mmol/L) 131 L 133 L 135 135 Potassium (3.4 - 5.0 mmol/L) 5.5 H 4.9 4.7 4.7 Chloride (100 - 108 mmol/L) 102 103 105 101 Ionized Calcium (1.12 - 1.32 MMOL/L) 1.24 1.25 1.26 1.26 Lactic Acid (0.9 - 1.7 mmol/l) 1.1 0.5 L 0.4 L 0.5 L Temperature (F) 98.6 98.8 O2 Delivery Device Cannula Cannula [facility] Laboratory Tests 07/11 07/11 07/11 07/11 07/11 1551 1545 [id number] Chemistry Sodium (134 - 147 mEq/L) 132 L Potassium (3.4 - 5.0 mEq/L) 5.3 H Chloride (100 - 108 mEq/L) 102 Carbon Dioxide (21 - 33 mEq/l) 22 Anion Gap (0 - 20) 13 BUN (7 - 18 mg/dL) 44 H Creatinine (0.6 - 1.3 mg/dL) 3.8 H POC Creatinine (0.8 - 1.3 mg/dL) 3.8 H 3.6 H 3. 6 H Glomerular Filtr Rate (70 - 80) 15.4 L Glucose (70 - 110 mg/dL) 156 H POC Glucose (70 - 110 MG/DL) 117 H POC Glucose (mg/dL) (70 - 110 MG/DL) 159 H 122 H 102 Calcium (8.0 - 10.5 mg/dL) 8.9 Ionized Calcium Tenzin (1.09 - 1.30 1.17 MMOL/L) Phosphorus (2.5 - 4.9 MG/DL) 3.9 Magnesium (1.80 - 2.40 mg/dL) 2.72 H 07/11 Chemistry Sodium (134 - 147 mEq/L) 136 137 Potassium (3.4 - 5.0 mEq/L) 4.8 4.7 Chloride (100 - 108 mEq/L) 103 105 Carbon Dioxide (21 - 33 mEq/l) 24 23 Anion Gap (0 - 20) 14 14 BUN (7 - 18 mg/dL) 32 H 26 H Creatinine (0.6 - 1.3 mg/dL) 3.2 H 2.9 H POC Creatinine (0.8 - 1.3 mg/dL) 3.3 H Glomerular Filtr Rate (70 - 80) 19.0 L 21.3 L Glucose (70 - 110 mg/dL) 103 141 H POC Glucose (mg/dL) (70 - 110 MG/DL) 109 Calcium (8.0 - 10.5 mg/dL) 9.0 8.6 Ionized Calcium Tenzin (1.09 - 1.30 MMOL/L) 1.14 Magnesium (1.80 - 2.40 mg/dL) 2.89 H 2.63 H Total Bilirubin (0.0 - 1.0 mg/dL) 0.40 Direct Bilirubin (0.0 - 0.30 MG/DL) 0.20 Indirect Bilirubin (MG/DL) 0.20 AST (15 - 37 IUnit/L) 36 ALT (30 - 65 IUnit/L) < 7 L Total Alk Phosphatase (20 - 125 IUnit/L) 105 Total Protein (6.4 - 8.2 g/dL) 6.1 L Albumin (3.4 - 5.0 g/dL) 3.30 L 02/02 1626 Chemistry POC Glucose (70 - 110 MG/DL) 126 H Laboratory Tests 07/11 0229 Hematology WBC (4.5 - 11.0 x10 3/uL) 22.2 H RBC (4.00 - 5.60 x10 6/uL) 2.91 L Hgb (12.5 - 16.9 g/dL) 8.6 L Hct (37.5 - 50.7 %) 27.7 L MCV (81.0 - 99.0 fL) 95.2 MCH (27.0 - 33.0 pg) 29.6 MCHC (33.0 - 37.0 g/dL) 31.0 L RDW (11.5 - 14.5 %) 18.1 H Plt Count (150 - 400 x10 3/uL) 100 L MPV (7.0 - 9.0 fL) 11.8 H Neut % (Auto) (56.0 - 77.0 %) 86.3 H Lymph % (Auto) (14.0 - 32.0 %) 4.2 L [place] % (Auto) (4.8 - 9.0 %) 7.5 Eos % (Auto) (0.3 - 3.7 %) 0.8 Baso % (Auto) (0.0 - 2.0 %) 0.3 Neut # (Auto) (2.0 - 7.6 x10 3/uL) 19.22 H Lymph # (Auto) (1.0 - 3.8 x10 3/uL) 0.93 L [place] # (Auto) (0.1 - 0.8 x10 3/uL) 1.66 H Eos # (Auto) (0.0 - 0.2 x10 3/uL) 0.17 Baso # (Auto) (0.0 - 0.2 x10 3/uL) 0.06 Abs Immat Gran (auto) (0.00 - 0.03 x10 3/uL) 0 .19 H Add Manual Diff NO Immature Gran % (0.0 - 2.0 %) 0.9 Nucleated RBC % (0 - 0 %) 0.0 Nucleated RBCs # (Man) (0.0 - 0.1 x10 3/uL) 0.0 0 Immature Plt Fraction (0.9 - 11.2 %) 6.5 Radiology data: Recent Impressions: RADIOLOGY - XR CHEST 1 V 07/11 7454 Report Impression - Status: SIGNED Entered: 07/11/2022 1255 IMPRESSION: 1. Moderate enlarged cardiac silhouette. 2. Small bilateral pleural effusions. 3. Moderate to severe pulmonary edema versus inf iltrates, pneumonia. Progression of opacities within right lower chest. 4. Degenerative and postsurgical changes are dem onstrated, as described above. Impression By: [email or web address] - Manuel Vega M.D. Diagnosis, Assessment Plan Consultants: cardiology, cardiovascular surgery, nephrology Free Text DxA P Notes Free text DxA P notes: Assessment and plans: CAD (coronary artery disease) patient presented with NSTEMI and found to hve severe CAD. Cardiac cath shows: Left Main - Distal 70% LAD - Proximal 80% with another 60% and 70% les sions Cir - Proximal 80%,mid 80-90%, Distal 70% and O M 60% RCA - large dominant with proximal 40%, Mid 60% . Cardiology and CV surgeon consulted echo: ef 30-34%, mod hypokinesis of entire myoc ardium, grade 1 diastolic dysfunction Carotid Dopplers negative PFTs PT/OT s/p CABG X5 on 07/08 Patient on ASA, plavix, BB and Statin on amiodarone Beta-tomas as tolerated for low BP, off press ors 2/3 Acute systolic heart failure Echocardiac with estimated LVEF of 30 to 34% wi th grade 1 diastolic dysfunction -s/p Lasix 20 mg twice daily 07/05 -on metoprolol 12.5 mg bid on hold now, BP low -no ACEI/ spironolactione for CLAUDETTE -Strict I's and O's, daily weights -Start GDMT prior to discharge CLAUDETTE (acute kidney injury) No prior Hx of renal disease. hx of BPH and casimiro ated with Fosamax w/o improvement nd continue to h ave difficulty urinating. On admission was found to be on acute renal filaure and had received HD tw prior to arrival here ( thursday and thursday). Creatinine this am was 7.4, BUN 68 * Probably due to obstructive uropathy * waters already in place * Nephrology consuled for HD On daily hemodialysis as per nephrology CRRT versus hemodialysis as per nephrology Anemia: -Hemoglobin dropped to 6.5 s/p CABG 2 PRBC BT ordered 07/09 Monitor H H Leukocytosis: -Afebrile Monitor WBC count HTN (hypertension) patient on metoprolol 12.5 mg BID, will adjust as needed On labetalol/hydralazine as needed Dyslipidemia on Lipitor 40mg po daliy. BPH (benign prostatic hyperplasia) Started on Flomax at the previous hospital, thais l continue with it. Waters catheter in place, continue Waters cathete r as per nephrology 07/05 Goiter Hx of Goiter and surgical resection. TSH 3.33, within normal limits. Patient is not on Thyroid medication. anemia of chronic kidney disease Hemoglobin 9.5, monitor Hypokalemia resolved UTI continue Rocephin for empiric treatment pend ing results of urine culture No growth for 48 hours DVT prophylaxis: Heparin 5000 units every 8 hour s Diet: Cardiac diet CODE STATUS: Full code Disposition: Status post CAB G x5 on 07/09, 1 chest tube out, 1 chest tube in, off pressors, CRRT versus hemodi alysis as per nephrology, we have consulted. Worked with PT in his room, on 2 L oxygen via nasal can nula. PT/OT on board. Rehab consulted. Continue CVICU care. Quality: Gen Med Crit Care VTE Prophylaxis VTE prophylaxis initiated: yes Current Medications Current medication review: I attest that the foregoing medication list in t he medical record is true, accurate, and complete to the best of my knowled ge. Advanced Care Plan 65 or Older Discussed with: patient Discussion included: living will (none), power of employment law attorney (none), code status ( full code) Electronically Signed by Radha Ward MD on [address] [facility] #:[id number] END OF REPORT 2022-07-11 09:43:00-00:00 [facility]ACL [facility] ([facility]) Adult General Consultation REPORT#:[id number] REPORT STATUS: Signed DATE:07/11/22 TIME: 942 PATIENT: SHERRI ARCE UNIT #: [id number] ROOM/BED: [place] [address] : 42 AGE: 81 SEX: M ATTEND: Radha Ward ADM AUTHOR: Magdaleno Washburn * ALL edits or amendments must be made on the [email or web address] document * History of Present Illness Reason for consult: PMR consultation Chief complaint: Debility post CABG HPI: This is a 81-year-old gentleman who presented to an outside hospital with complaints of chest pains while walking at his home on Thursday. He denies any previous history of coronary artery disease or o ther NE. He was seen and evaluated at [facility]. He was found to have a urinary tract infection with urinary retention and acute kidne y. He was started on dialysis via a left femoral temporary catheter. He underw ent dialysis on Thursday, Thursday. Renal has been consulted During his work-up at outside hospital he underw ent Left heart catheterization showing sever e Left Main 70%. LAD: Proximal diffuse 80% stenosis and then diffuse 60% in the midsegment and on the distal segment, there is focal 70% stenosis. Diagonal branches w ith luminal irregularities. Left circumflex, codominant circulation with pro ximal 80%, mid 80 to 90% and then in the OM, there is proximal 60%, distal le ft circumflex has a 70% stenosis. RCA large and dominant with proximal 4 0% stenosis, mid 60% stenosis and then diffuse 50% stenosi s all the way distally and the PLV and the PDA with luminal irregularities. CV surgery was consulted and patient had CABG x5. Postop patient with some catherine al and hemodynamic issues requiring multiple drips. He is still on several drips including d opamine and epinephrine. Patient still has 1 Keshav drain. We have been asked to see him in consultation for physical medicine and rehabilitation evaluation History - Adult longitudinal Past medical history: Reports: Hypertension, Dyslipidemia. Additional surgical history: Denies Family history: Reports: Heart disease (parents and sibbling.). 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) Drug use: Denies recreational drugs Smoking status for patients 13 years old or older: Former Smoker (quit 20 years ago) Medications: Home Medications: Medication Dose/Rte/Freq Days Qty Entered Last Max Daily Dose Reviewed ASPIRIN 81 MG PO DAILY 07/02/22 Strength: 81 MG TAB.CHEW 2022 TAMSULOSIN ER (FLOMAX) 0.4 MG PO BEDTIME 07/02 Strength: 0.4 MG CAP.SR.24H 2024 ATORVASTATIN (LIPITOR) 20 MG PO DAILY 07/02/22 Strength: 20 MG TAB 2025 METOPROLOL TARTRATE 12.5 MG PO BID 07/02/22 (LOPRESSOR) 2026 Strength: 25 MG TAB cefTRIAXone (ROCEPHIN) 1 GM IV Q24H 07/02/22 Strength: 1 GRAM/50 ML 2030 PIGGYBACK VANCOMYCIN/D5W 1 GM IV 07/02/22 (VANCOCIN/D5W) DIALYSIS-DOSE 2031 Strength: 1 GRAM/250 ML DURING PIGGYBACK ACETAMINOPHEN (TYLENOL) 650 MG PO 07/02/22 Strength: 325 MG TAB Q6H PRN PRN PAIN 2033 SCALE 1-3/TEMP ABOVE 100F ONDANSETRON 4 MG IV 07/02/22 Strength: 4 MG/2 ML VIAL Q6H PRN PRN NAUSEA 2034 AND VOMITING Current Hospital Medications: Autonomic Drugs Sig/Earl Start time Last Medication Dose Route Stop Time Status Admin Ipratropium Kersey 500 MCG RTQ2H PRN PRN 07/11 1821 AC 07/10 (ATROVENT) INH 08/10 1820 1302 Dopamine HCl/Dextrose 250 ML ASDIR 07/10 2100 A C 07/10 (DOPamine 400MG/D5W IV 08/09 2059 2113 250ML) Ipratropium Kersey 500 MCG RTQ4H 07/08 1900 AC 07/11 (ATROVENT) INH 08/07 1859 0744 Epinephrine 4 MG ASDIR 07/08 1830 AC 07/10 (ADRENALIN CHLORIDE) IV 08/07 1829 1201 Dextrose/Water 246 ML (DEXTROSE 5% WATER) Norepinephrine 250 ML TITRATE 07/08 1830 AC Bitartrate IV 08/07 1829 (NOREPINEPHRINE 8 MG/ NS 250 ML) Tamsulosin HCl 0.4 MG BEDTIME 07/025 AC (Flomax 0.4 mg) PO 08/01 214 2039 Blood Derivatives Sig/Earl Start time Last Medication Dose Route Stop Time Status Admin Albumin Human 12.5 GM ASDIR PRN 07/03 1200 AC 0 07/10 (ALBUMINAR-25%) IV 08/03 1155 1327 Blood Formation,Coagulation Sig/Earl Start time Last Medication Dose Route Stop Time Status Admin Ferrous Sulfate 325 MG DAILY 07/11 0900 AC (FERROUS SULFATE) PO 08/10 0859 Clopidogrel Bisulfate 75 MG DAILY 07/09 0900 AC 07/11 (Plavix) PO 08/08 0859 0928 Heparin Sodium 3,000 UNIT ASDIR PRN 07/03 1200 AC 07/11 (Porcine) DIALYSIS 08/02 1159 0521 (HEPARIN SODIUM) Cardiovascular Drugs Sig/Earl Start time Last Medication Dose Route Stop Time Status Admin Atorvastatin Calcium 40 MG 2100 07/09 2100 AC 0 07/10 (LIPITOR) PO 08/08 Amiodarone HCl 200 MG TID 07/08 2099 AC 07/11 (CORDARONE) PO 08/07 Metoprolol Tartrate 12.5 MG Q12HR 07/08 2099 AC (LOPRESSOR) PO 08/07 2058 Nitroglycerin/ 250 ML ASDIR 07/08 183 AC Dextrose IV 08/07 182 (NITROGLYCERIN 50,000MCG/D5W 250ML) Lidocaine HCl 0.5 ML ASDIR PRN 07/03 1200 CKD (LIDOCAINE HCL/PF) I-DERMAL 08/03 1155 Central Nervous System Agents Sig/Earl Start time Last Medication Dose Route Stop Time Status Admin Magnesium Sulfate 100 ML ASDIR PRN 07/09 0700 A C (MAGNESIUM SULFATE IV 08/08 0659 4GM/SWFI 100ML) Magnesium Sulfate 50 ML ASDIR PRN 07/09 0700 AC (MAGNESIUM SULFATE IV 08/08 0659 2GM/SWFI 50ML) Aspirin 81 MG DAILY 07/09 002 AC 07/11 (ASPIRIN) PO 08/08 001 0927 Gabapentin 200 MG BID 07/08 2100 AC 07/11 (NEURONTIN) PO 07/13 0901 0928 Acetaminophen 650 MG Q4H PRN PRN 07/08 1830 AC 07/10 (TYLENOL) PO 08/07 182 1731 Acetaminophen 650 MG Q4H PRN PRN 07/08 1830 AC (TYLENOL) RECTAL 08/07 182 Magnesium Sulfate 100 ML ASDIR PRN 07/08 1830 A C (MAGNESIUM SULFATE IV 08/07 1829 4GM/SWFI 100ML) Magnesium Sulfate 50 ML ASDIR PRN 07/08 1830 AC (MAGNESIUM SULFATE IV 08/07 1829 2GM/SWFI 50ML) Magnesium Sulfate/ 100 ML ASDIR PRN 07/08 1830 AC 07/10 Dextrose IV 08/07 1829 1731 (MAGNESIUM SULFATE 1GM/D5W 100ML) Oxycodone HCl 5 MG Q4H PRN PRN 07/08 1830 AC 0 07/09 (ROXICODONE) PO 07/13 182 1500 Oxycodone HCl 10 MG Q4H PRN PRN 07/08 1830 AC 0 07/10 (ROXICODONE) PO 07/13 182 0410 Devices Sig/Earl Start time Last Medication Dose Route Stop Time Status Admin Miscellaneous 5,000 ML ASDIR 07/09 0700 AC (PRISMASATE BGK 4/ DIALYSIS 08/08 0659 2.5 SOLUTION) Electrolytic, Caloric, And Gerhard Sig/Earl Start time Last Medication Dose Route Stop Time Status Admin Calcium Gluconate/ 50 ML ONCE ONE 07/10 2300 D C 07/10 Sodium Chloride IV 07/10 230 2255 (Calcium Gluconate 1 GM/NS 50 mL) Calcium Chloride 1 GM ASDIR PRN 07/09 0700 AC (CALCIUM CHLORIDE) IV 08/08 0659 Sodium Chloride 100 ML (SODIUM CHLORIDE 0.9%) Calcium Chloride 2 GM ASDIR PRN 07/09 0700 AC (CALCIUM CHLORIDE) IV 08/08 0659 Sodium Chloride 100 ML (SODIUM CHLORIDE 0.9%) Potassium Chloride 50 ML ASDIR PRN 07/09 0700 A C (KCL 10MEQ/SWFI 50ML) IV 08/08 0659 Sodium Chloride 2,000 ML ASDIR PRN 07/09 0700 A C (SODIUM CHLORIDE IV 08/08 0659 0.9%) Sodium Phosphate 25 MMOL ASDIR PRN 07/09 0700 A C (SODIUM PHOSPHATE) IV 08/08 0659 Sodium Chloride 250 ML (SODIUM CHLORIDE 0.9%) Sodium Phosphate 20 MMOL ASDIR PRN 07/09 0700 A C (SODIUM PHOSPHATE) IV 08/08 0659 Sodium Chloride 250 ML (SODIUM CHLORIDE 0.9%) Sodium Phosphate 15 MMOL ASDIR PRN 07/09 0700 A C (SODIUM PHOSPHATE) IV 08/08 0659 Sodium Chloride 250 ML (SODIUM CHLORIDE 0.9%) Calcium Chloride 1 GM ASDIR PRN 07/08 1830 AC 0 07/08 (CALCIUM CHLORIDE) IV 08/07 1822026 Dextrose/Water 125 ML ASDIR PRN 07/08 183 CKD (DEXTROSE 10% IN IV 08/07 1828 WATER) Dextrose/Water 250 ML ASDIR PRN 07/08 1830 CKD (DEXTROSE 10% IN IV 08/07 182 WATER) Potassium Chloride 100 ML ASDIR PRN 07/08 1830 AC (KCL 20MEQ/SWFI IV 08/07 182 100ML) Sodium Bicarbonate 50 MEQ ASDIR PRN 07/08 1830 AC 07/09 (SODIUM BICARBONATE) IV 08/07 1828 0021 Sodium Chloride 1,000 ML .Q20H 07/08 1830 AC (SODIUM CHLORIDE IV 08/07 182 0.9%) Sodium Chloride 250 ML Q24H 07/08 1830 AC (SODIUM CHLORIDE IV 08/07 182 0.9%) Mannitol 12.5 GM ASDIR PRN 07/03 1200 AC (Mannitol 20%) IV 08/03 1155 Sodium Chloride 2,000 ML ASDIR PRN 07/03 1200 A C 07/07 (SODIUM CHLORIDE IV 08/03 1155 1813 0.9%) Gastrointestinal Drugs Sig/Earl Start time Last Medication Dose Route Stop Time Status Admin Bisacodyl 10 MG ONCE PRN 07/10 1200 AC 07/11 (DULCOLAX) RECTAL 08/09 1159 0928 Magnesium Hydroxide 30 ML ONCE PRN 07/10 1200 D C 07/10 (MILK OF MAGNESIA) PO 1405 Polyethylene Glycol 17 GM DAILY 07/09 0900 AC 0 07/11 (MIRALAX) PO 08/08 0859 0928 Pantoprazole 40 MG DAILY@0600 07/09 0600 AC (PROTONIX) PO 08/08 0559 0506 Docusate Sodium 100 MG BID 07/08 2100 AC 07/11 (COLACE) PO 08/07 Sennosides 17.2 MG BEDTIME 07/08 2100 AC 07/10 (Senna Lax 8.6 MG PO 08/07 TABLET) Ondansetron HCl 4 MG Q6H PRN PRN 07/08 183 AC (ZOFRAN) IV 08/07 1828 Hormones And Synthetic Substit Sig/Earl Start time Last Medication Dose Route Stop Time Status Admin Insulin Human Lispro 0 AC HS 07/10 1130 AC (HUMALOG) SUBQ 08/09 1129 Vasopressin 100 ML ASDIR 07/09 0015 CKD 07/09 (VASOSTRICT 20 Unit/ IV 08/08 13 2139 NS 100ML) Glucagon 1 MG ASDIR PRN 07/08 1830 AC (GLUCAGON) IM 08/07 1829 Skin And Mucous Membrane Agent Sig/Earl Start time Last Medication Dose Route Stop Time Status Admin Mupirocin 1 APPLIC BID 07/08 2100 AC 07/11 (BACTROBAN 2% 22 GM NASAL 07/13 09 0929 OINTMENT) Vitamins Sig/Earl Start time Last Medication Dose Route Stop Time Status Admin Cyanocobalamin 500 MCG DAILY 07/11 0900 AC (Vitamin B-12 500 PO 08/10 0859 mcg tab) Other Sig/Earl Start time Last Medication Dose Route Stop Time Status Admin Miscellaneous 1 EACH ASDIR 07/09 0730 AC Information MISC 08/08 07 (PHARMACY TO DOSE/ EVALUATE) Allergies: Coded Allergies: No Known Allergies (07/02/22) Review of Systems Constitutional: fatigue, generalized weakness. Musculoskeletal: thoracic pain. All systems rev neg: except as marked Objective VS/I O: Last Documented: Result Date Time O2 Delivery Nasal cannula 07/11 0800 O2 Flow Rate 5 07/11 0800 Pulse Ox 94 07/11 0746 B/P 128/44 07/11 0556 B/P Mean 62 07/11 0556 Temp 99.3 07/11 0556 Pulse 87 07/11 0556 Resp 30 07/11 0556 FiO2 50 07/08 1919 24 hour I O ending at 0700: 07/11 0700 07/10 1900 Intake Total 1017.00 1283.00 Output Total 240 1027 Balance 777.00 256.00 Intake, IV 427.00 383.00 Intake, Oral 240 560 Intake, Oral 240 Supplement Intake, Other 100 Intake, 350 Packed Cells Number Voids Output, CRRT 489 Ultrafiltration Output, Chest 200 395 Tube Drainage Output, Urine 40 143 Patient 203 lb Weight Weight Bed scale Measurement Method PATIENT WEIGHT: Weight (lb): 202 Weight (oz): 13.2 Weight (kg): 92.000 General appearance: alert, awake Head/Eyes: atraumatic, clear cornea, EOMI ENT: normal dentition, normal ear left, normal e ar right Neck: full range of motion, non-tender, no lymph adenopathy Cardiovascular: normal capillary refill, pedal p ulses present, normal heart sounds Respiratory: decreased breath sounds, clear to a uscultation, no distress Abdomen: soft, non-tender, no guarding, no rebou nd Genitourinary: not indicated Extremities: no clubbing, no cyanosis Musculoskeletal: full range of motion, normal in spection, painless range of motion 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[employer]: alert, oriented X 3, normal gait Skin: intact, no rash Lymphatics: no lymphadenopathy Psychiatry: normal affect, normal judgment/insig ht Results Findings/Data: Laboratory Tests: 07/11 07/11 07/11 07/11 0948 0707 0432 0228 Blood Gas Puncture Site Art Line [place] O2 Saturation (90 - 100 %) 93.9 ABG pH (7.35 - 7.45) 7.381 ABG pCO2 (35.0 - 45 mmHg) 36.5 ABG pO2 (80 - 100.0 mmHg) 71.5 L ABG HCO3 (22.0 - 26.0 MMOL/L) 21.7 L ABG Total CO2 22.8 ABG Base Excess (-4.0 - 4.0 MMOL/L) -3.4 ABG Hematocrit (37.5 - 50.7 %) 27 L 31 L ABG Hemoglobin (12.5 - 16.9 G/DL) 9.2 L 10.5 L Marylu Test N/A VBG pH (7.33 - 7.45) 7.369 VBG pCO2 (43 - 47 mmHg) 42.1 L VBG pO2 (10 - 50 mmHG) 30.2 VBG HCO3 (22 - 27 MMOL/L) 24.3 POC VBG Total CO2 25.6 VBG O2 Saturation (60 - 80 %) 55.6 L VBG Base Excess (-4.0 - 4.0 MMOL/L) -1.0 Sodium (134 - 147 mmol/L) 133 L 135 Potassium (3.4 - 5.0 mmol/L) 4.9 4.7 Chloride (100 - 108 mmol/L) 103 105 Ionized Calcium (1.12 - 1.32 MMOL/L) 1.25 1.26 Lactic Acid (0.9 - 1.7 mmol/l) 0.5 L 0.4 L Temperature (F) 98.8 O2 Delivery Device Cannula HFNC Chemistry POC Creatinine (0.8 - 1.3 mg/dL) 3.6 H 3.6 H POC Glucose (70 - 110 MG/DL) 117 H POC Glucose (mg/dL) (70 - 110 MG/DL) 122 H 102 Magnesium (1.80 - 2.40 mg/dL) 2.89 H 07/11 Blood Gas Puncture Site Art Line O2 Saturation (90 - 100 %) 91.8 ABG pH (7.35 - 7.45) 7.375 ABG pCO2 (35.0 - 45 mmHg) 40.6 ABG pO2 (80 - 100.0 mmHg) 64.8 L ABG HCO3 (22.0 - 26.0 MMOL/L) 23.8 ABG Total CO2 25.0 ABG Base Excess (-4.0 - 4.0 MMOL/L) -1.4 ABG Hematocrit (37.5 - 50.7 %) 27 L ABG Hemoglobin (12.5 - 16.9 G/DL) 9.3 L Sodium (134 - 147 mmol/L) 135 Potassium (3.4 - 5.0 mmol/L) 4.7 Chloride (100 - 108 mmol/L) 101 Ionized Calcium (1.12 - 1.32 MMOL/L) 1.26 Lactic Acid (0.9 - 1.7 mmol/l) 0.5 L O2 Delivery Device HFNC Chemistry Sodium (134 - 147 mEq/L) 136 137 Potassium (3.4 - 5.0 mEq/L) 4.8 4.7 Chloride (100 - 108 mEq/L) 103 105 Carbon Dioxide (21 - 33 mEq/l) 24 23 Anion Gap (0 - 20) 14 14 BUN (7 - 18 mg/dL) 32 H 26 H Creatinine (0.6 - 1.3 mg/dL) 3.2 H 2.9 H POC Creatinine (0.8 - 1.3 mg/dL) 3.3 H Glomerular Filtr Rate (70 - 80) 19.0 L 21.3 L Glucose (70 - 110 mg/dL) 103 141 H POC Glucose (70 - 110 MG/DL) 126 H POC Glucose (mg/dL) (70 - 110 MG/DL) 109 Calcium (8.0 - 10.5 mg/dL) 9.0 8.6 Ionized Calcium Tenzin (1.09 - 1.30 MMOL/L) 1.14 Magnesium (1.80 - 2.40 mg/dL) 2.63 H Total Bilirubin (0.0 - 1.0 mg/dL) 0.40 Direct Bilirubin (0.0 - 0.30 MG/DL) 0.20 Indirect Bilirubin (MG/DL) 0.20 AST (15 - 37 IUnit/L) 36 ALT (30 - 65 IUnit/L) < 7 L Total Alk Phosphatase (20 - 125 IUnit/L) 105 Total Protein (6.4 - 8.2 g/dL) 6.1 L Albumin (3.4 - 5.0 g/dL) 3.30 L Hematology WBC (4.5 - 11.0 x10 3/uL) 22.2 H RBC (4.00 - 5.60 x10 6/uL) 2.91 L Hgb (12.5 - 16.9 g/dL) 8.6 L Hct (37.5 - 50.7 %) 27.7 L MCV (81.0 - 99.0 fL) 95.2 MCH (27.0 - 33.0 pg) 29.6 MCHC (33.0 - 37.0 g/dL) 31.0 L RDW (11.5 - 14.5 %) 18.1 H Plt Count (150 - 400 x10 3/uL) 100 L MPV (7.0 - 9.0 fL) 11.8 H Neut % (Auto) (56.0 - 77.0 %) 86.3 H Lymph % (Auto) (14.0 - 32.0 %) 4.2 L [place] % (Auto) (4.8 - 9.0 %) 7.5 Eos % (Auto) (0.3 - 3.7 %) 0.8 Baso % (Auto) (0.0 - 2.0 %) 0.3 Neut # (Auto) (2.0 - 7.6 x10 3/uL) 19.22 H Lymph # (Auto) (1.0 - 3.8 x10 3/uL) 0.93 L [place] # (Auto) (0.1 - 0.8 x10 3/uL) 1.66 H Eos # (Auto) (0.0 - 0.2 x10 3/uL) 0.17 Baso # (Auto) (0.0 - 0.2 x10 3/uL) 0.06 Abs Immat Gran (auto) (0.00 - 0.03 x10 3/uL) 0. 19 H Add Manual Diff NO Immature Gran % (0.0 - 2.0 %) 0.9 Nucleated RBC % (0 - 0 %) 0.0 Nucleated RBCs # (Man) (0.0 - 0.1 x10 3/uL) 0.0 0 Immature Plt Fraction (0.9 - 11.2 %) 6.5 07/10 07/10 1445 1156 Chemistry Sodium (134 - 147 mEq/L) 136 Potassium (3.4 - 5.0 mEq/L) 4.8 Chloride (100 - 108 mEq/L) 104 Carbon Dioxide (21 - 33 mEq/l) 25 Anion Gap (0 - 20) 12 BUN (7 - 18 mg/dL) 24 H Creatinine (0.6 - 1.3 mg/dL) 2.6 H Glomerular Filtr Rate (70 - 80) 24.3 L Glucose (70 - 110 mg/dL) 183 H POC Glucose (70 - 110 MG/DL) 146 H Calcium (8.0 - 10.5 mg/dL) 8.8 Ionized Calcium Tenzin (1.09 - 1.30 MMOL/L) 1.19 Phosphorus (2.5 - 4.9 MG/DL) 3.2 Magnesium (1.80 - 2.40 mg/dL) 2.39 Hematology WBC (4.5 - 11.0 x10 3/uL) 24.7 H RBC (4.00 - 5.60 x10 6/uL) 2.45 L Hgb (12.5 - 16.9 g/dL) 7.5 L Hct (37.5 - 50.7 %) 23.6 L MCV (81.0 - 99.0 fL) 96.3 MCH (27.0 - 33.0 pg) 30.6 MCHC (33.0 - 37.0 g/dL) 31.8 L RDW (11.5 - 14.5 %) 18.0 H Plt Count (150 - 400 x10 3/uL) 91 L MPV (7.0 - 9.0 fL) 12.0 H Neut % (Auto) (56.0 - 77.0 %) 89.7 H Lymph % (Auto) (14.0 - 32.0 %) 3.2 L [place] % (Auto) (4.8 - 9.0 %) 5.4 Eos % (Auto) (0.3 - 3.7 %) 0.4 Baso % (Auto) (0.0 - 2.0 %) 0.2 Neut # (Auto) (2.0 - 7.6 x10 3/uL) 22.14 H Lymph # (Auto) (1.0 - 3.8 x10 3/uL) 0.79 L [place] # (Auto) (0.1 - 0.8 x10 3/uL) 1.32 H Eos # (Auto) (0.0 - 0.2 x10 3/uL) 0.09 Baso # (Auto) (0.0 - 0.2 x10 3/uL) 0.06 Abs Immat Gran (auto) (0.00 - 0.03 x10 3/uL) 0. 26 H Add Manual Diff NO Immature Gran % (0.0 - 2.0 %) 1.1 Nucleated RBC % (0 - 0 %) 0.0 Nucleated RBCs # (Man) (0.0 - 0.1 x10 3/uL) 0.0 0 Diagnosis, Assessment Plan Consultants: cardiology, cardiovascular surgery, nephrology Free Text DxA P Notes Free Text DxA P Notes: Non-STEMI Multivessel CAD S/p CABG x5 Physical deconditioning Impaired mobility and gait Postoperative anemia Dyslipidemia Hypertension CLAUDETTE Acute systolic heart failure Hemodynamic issues postop Plan: Continue PT/OT Out of bed to chair Work on strength, bed mobility, transfers, gait Sternal precaution Increase endurance Fall precautions Monitor p.o. intake and nutrition Strict decubitus precautions Advance therapies as tolerated Wean pressors as tolerated Nephrology managing renal issues IRF consulted. Will require insurance approval Thank you for referral Quality: Gen Med Crit Care VTE Prophylaxis VTE prophylaxis initiated: yes Current Medications Current medication review: I attest that the foregoing medication list in [facility] medical record is true, accurate, and complete to the best of my knowled ge. Electronically Signed by Magdaleno Washburn on 0 07/12/22 at 0521 RPT #:[id number] END OF REPORT 2022-07-11 06:02:00-00:00 [facility] ([facility] Critical Care Progress Note REPORT#:[id number] REPORT STATUS: Signed DATE:07/11/22 TIME: 06 PATIENT: SHERRI ARCE UNIT #: [id number] ROOM/BED: [place] [address] : 42 AGE: 81 SEX: M ATTEND: Sam Mcarthur MD ADM AUTHOR: Edwardo Flannery MD * ALL edits or amendments must be made on the el [employer]/computer document * Subjective Chief complaint: CABG HPI: This is 81 years old male with medical history s ignificant for HTN and dyslipidemia [facility] with chest pain and found to have a NSTEMI and also acute r enal failure. He underwent cardiac cath and was found to have sever e CAD including left main disease with EF of 30 to 35% and ischemic cardiomyopathy. Transfer here for CABG evaluation. CV surgery were consulted an d the patient earlier today underwent CABG x 5 (MISTRY -LAD, SVG-Ladonna, SVG-OM1< SVG-OM3, SVG-PDA) and AL AA. His intraoperative course was without significant occurrence. The patient was brought to CVICU intubated and ventilated on milrinone drip, norepinephrine drip, epinephrine drip and vasopressin drip. His initial ABG showed metabolic acidosi s and he received 2 A of sodium bicarb and 1 g of calcium. The patient started to wake up later in the even ing but he looked weak, so he was reversed with neostigmine and glycopyrrolate . His motor strength improved significantly after that and his spontaneous lenard athing trial was good on the following ABG showed some metabolic acid osis. The patient will be extubated to a BiPAP as his CO2 was high on the ABG. Comments: OOB in the chair remains on epinephrine 2 amanda started dopamine gtt overnight UOP remains low, 35 cc only pCT output 200 cc given one unit PRBC Objective General VS/I O Last Documented: Result Date Time Pulse Ox 95 07/11 555 B/P 128/44 07/11 555 B/P Mean 62 07/11 555 Temp 99.3 07/11 05 Pulse 87 07/11 05 Resp 30 07/11 555 O2 Delivery High flow nasal cannula 07/10 1999 O2 Flow Rate 2 07/10 1999 FiO2 50 07/08 1918 24 hour I O ending at 0700: 07/11 0700 07/10 1900 Intake Total 450 1283.00 Output Total 1027 Balance 450 256.00 Intake, IV 100 383.00 Intake, Oral 560 Intake, Oral 240 Supplement Intake, Other 100 Intake, 350 Packed Cells Number Voids Output, CRRT 489 Ultrafiltration Output, Chest 395 Tube Drainage Output, Urine 143 PATIENT WEIGHT: Weight (lb): 185 Weight (oz): 3.01 Weight (kg): 84.000 Medications: Active Meds + DC'd Last 24 Hrs Ipratropium Kersey (ATROVENT) 500 MCG RTQ2H PRN PRN INH Cyanocobalamin (Vitamin B-12 500 mcg tab) 500 MC G DAILY PO Ferrous Sulfate (FERROUS SULFATE) 325 MG DAILY P O Calcium Gluconate/Sodium Chloride (Calcium Gluco hilario 1 GM/NS 50 mL) 50 ML ONCE ONE IV (DC) Dopamine HCl/Dextrose (DOPamine 400MG/D5W 250ML) 250 ML ASDIR IV Bisacodyl (DULCOLAX) 10 MG ONCE PRN RECTAL Magnesium Hydroxide (MILK OF MAGNESIA) 30 ML ONC E PRN PO (DC) Insulin Human Lispro (HUMALOG) 0 AC HS SUBQ Atorvastatin Calcium (LIPITOR) 40 MG 2100 PO Clopidogrel Bisulfate (Plavix) 75 MG DAILY PO Polyethylene Glycol (MIRALAX) 17 GM DAILY PO Miscellaneous Information (PHARMACY TO DOSE/EVAL UATE) 1 EACH ASDIR MISC Calcium Chloride (CALCIUM CHLORIDE) 1 GM ASDIR P RN IV Sodium Chloride (SODIUM CHLORIDE 0.9%) 100 ML Calcium Chloride (CALCIUM CHLORIDE) 2 GM ASDIR P RN IV Sodium Chloride (SODIUM CHLORIDE 0.9%) 100 ML Magnesium Sulfate (MAGNESIUM SULFATE 4GM/SWFI 10 0ML) 100 ML ASDIR PRN IV Magnesium Sulfate (MAGNESIUM SULFATE 2GM/SWFI 50 ML) 50 ML ASDIR PRN IV Miscellaneous (PRISMASATE BGK 4/2.5 SOLUTION) 5, 000 ML ASDIR DIALYSIS Potassium Chloride (KCL 10MEQ/SWFI 50ML) 50 ML A SDIR PRN IV Sodium Chloride (SODIUM CHLORIDE 0.9%) 2,000 ML ASDIR PRN IV Sodium Phosphate (SODIUM PHOSPHATE) 25 MMOL ASDI R PRN IV Sodium Chloride (SODIUM CHLORIDE 0.9%) 250 ML Sodium Phosphate (SODIUM PHOSPHATE) 20 MMOL ASDI R PRN IV Sodium Chloride (SODIUM CHLORIDE 0.9%) 250 ML Sodium Phosphate (SODIUM PHOSPHATE) 15 MMOL ASDI R PRN IV Sodium Chloride (SODIUM CHLORIDE 0.9%) 250 ML Pantoprazole (PROTONIX) 40 MG DAILY@0600 PO Aspirin (ASPIRIN) 81 MG DAILY PO Vasopressin (VASOSTRICT 20 Unit/NS 100ML) 100 ML ASDIR IV (CKD) Amiodarone HCl (CORDARONE) 200 MG TID PO Docusate Sodium (COLACE) 100 MG BID PO Gabapentin (NEURONTIN) 200 MG BID PO Metoprolol Tartrate (LOPRESSOR) 12.5 MG Q12HR PO Mupirocin (BACTROBAN 2% 22 GM OINTMENT) 1 APPLIC BID NASAL Sennosides (Senna Lax 8.6 MG TABLET) 17.2 MG BED TIME PO Ipratropium Kersey (ATROVENT) 500 MCG RTQ4H INH Acetaminophen (TYLENOL) 650 MG Q4H PRN PRN PO Acetaminophen (TYLENOL) 650 MG Q4H PRN PRN RECT AL Calcium Chloride (CALCIUM CHLORIDE) 1 GM ASDIR P RN IV Dextrose/Water (DEXTROSE 10% IN WATER) 125 ML DIR PRN IV (CKD) Dextrose/Water (DEXTROSE 10% IN WATER) 250 ML DIR PRN IV (CKD) Epinephrine (ADRENALIN CHLORIDE) 4 MG ASDIR IV Dextrose/Water (DEXTROSE 5% WATER) 246 ML Glucagon (GLUCAGON) 1 MG ASDIR PRN IM Insulin Human Regular (HumuLIN R) 100 UNIT ASDIR IV (DC) Sodium Chloride (SODIUM CHLORIDE 0.9%) 99 ML Magnesium Sulfate (MAGNESIUM SULFATE 4GM/SWFI 10 0ML) 100 ML ASDIR PRN IV Magnesium Sulfate (MAGNESIUM SULFATE 2GM/SWFI 50 ML) 50 ML ASDIR PRN IV Magnesium Sulfate/Dextrose (MAGNESIUM SULFATE 1G M/D5W 100ML) 100 ML ASDIR PRN IV Nitroglycerin/Dextrose (NITROGLYCERIN 50,000MCG/ D5W 250ML) 250 ML ASDIR IV Norepinephrine Bitartrate (NOREPINEPHRINE 8 MG/N S 250 ML) 250 ML TITRATE IV Ondansetron HCl (ZOFRAN) 4 MG Q6H PRN PRN IV Oxycodone HCl (ROXICODONE) 5 MG Q4H PRN PRN PO Oxycodone HCl (ROXICODONE) 10 MG Q4H PRN PRN PO Potassium Chloride (KCL 20MEQ/SWFI 100ML) 100 ML ASDIR PRN IV Sodium Bicarbonate (SODIUM BICARBONATE) 50 MEQ A SDIR PRN IV Sodium Chloride (SODIUM CHLORIDE 0.9%) 1,000 ML .Q20H IV Sodium Chloride (SODIUM CHLORIDE 0.9%) 250 ML Q2 4H IV Albumin Human (ALBUMINAR-25%) 12.5 GM ASDIR PRN IV Heparin Sodium (Porcine) (HEPARIN SODIUM) 3,000 UNIT ASDIR PRN DIALYSIS Lidocaine HCl (LIDOCAINE HCL/PF) 0.5 ML ASDIR NV N I-DERMAL (CKD) Mannitol (Mannitol 20%) 12.5 GM ASDIR PRN IV Sodium Chloride (SODIUM CHLORIDE 0.9%) 2,000 ML ASDIR PRN IV Tamsulosin HCl (Flomax 0.4 mg) 0.4 MG BEDTIME PO Results Findings/data: Laboratory Tests 07/11 07/11 07/10 0430 0226 1005 Blood Gas Puncture Site [place] Art Line Art Line O2 Saturation (90 - 100 %) 91.8 96.7 ABG pH (7.35 - 7.45) 7.375 7.385 ABG pCO2 (35.0 - 45 mmHg) 40.6 46.4 H ABG pO2 (80 - 100.0 mmHg) 64.8 L 89.1 ABG HCO3 (22.0 - 26.0 MMOL/L) 23.8 27.8 H ABG Total CO2 25.0 29.2 ABG Base Excess (-4.0 - 4.0 MMOL/L) -1.4 2.7 ABG Hematocrit (37.5 - 50.7 %) 31 L 27 L 24 L ABG Hemoglobin (12.5 - 16.9 G/DL) 10.5 L 9.3 L 8.0 L Marylu Test N/A VBG pH (7.33 - 7.45) 7.369 VBG pCO2 (43 - 47 mmHg) 42.1 L VBG pO2 (10 - 50 mmHG) 30.2 VBG HCO3 (22 - 27 MMOL/L) 24.3 POC VBG Total CO2 25.6 VBG O2 Saturation (60 - 80 %) 55.6 L VBG Base Excess (-4.0 - 4.0 MMOL/L) -1.0 Sodium (134 - 147 mmol/L) 135 135 136 Potassium (3.4 - 5.0 mmol/L) 4.7 4.7 4.8 Chloride (100 - 108 mmol/L) 105 101 102 Ionized Calcium (1.12 - 1.32 MMOL/L) 1.26 1.26 1.36 H Lactic Acid (0.9 - 1.7 mmol/l) 0.4 L 0.5 L 1.3 Temperature (F) 98.4 O2 Delivery Device HFNC HFNC Cannula Laboratory Tests 07/110 228 228 225 2007 Chemistry Sodium (134 - 147 mEq/L) 136 137 Potassium (3.4 - 5.0 mEq/L) 4.8 4.7 Chloride (100 - 108 mEq/L) 103 105 Carbon Dioxide (21 - 33 mEq/l) 24 23 Anion Gap (0 - 20) 14 14 BUN (7 - 18 mg/dL) 32 H 26 H Creatinine (0.6 - 1.3 mg/dL) 3.2 H 2.9 H POC Creatinine (0.8 - 1.3 mg/dL) 3.6 H 3.3 H Glomerular Filtr Rate (70 - 80) 19.0 L 21.3 L Glucose (70 - 110 mg/dL) 103 141 H POC Glucose (mg/dL) (70 - 110 MG/DL) 102 109 Calcium (8.0 - 10.5 mg/dL) 9.0 8.6 Ionized Calcium Tenzin (1.09 - 1.30 1.14 MMOL/L) Magnesium (1.80 - 2.40 mg/dL) 2.89 H 2.63 H Total Bilirubin (0.0 - 1.0 mg/dL) 0.40 Direct Bilirubin (0.0 - 0.30 MG/DL) 0.20 Indirect Bilirubin (MG/DL) 0.20 AST (15 - 37 IUnit/L) 36 ALT (30 - 65 IUnit/L) < 7 L Total Alk Phosphatase (20 - 125 IUnit/L) 105 Total Protein (6.4 - 8.2 g/dL) 6.1 L Albumin (3.4 - 5.0 g/dL) 3.30 L 07/10 07/10 07/10 07/10 07/10 1626 1445 1156 1005 1000 Chemistry Sodium (134 - 147 mEq/L) 136 136 Potassium (3.4 - 5.0 mEq/L) 4.8 4.9 Chloride (100 - 108 mEq/L) 104 103 Carbon Dioxide (21 - 33 mEq/l) 25 26 Anion Gap (0 - 20) 12 12 BUN (7 - 18 mg/dL) 24 H 22 H Creatinine (0.6 - 1.3 mg/dL) 2.6 H 2.5 H POC Creatinine (0.8 - 1.3 mg/dL) 2.4 H Glomerular Filtr Rate (70 - 80) 24.3 L 25.5 L Glucose (70 - 110 mg/dL) 183 H 129 H POC Glucose (70 - 110 MG/DL) 126 H 146 H POC Glucose (mg/dL) (70 - 110 MG/DL) 139 H Calcium (8.0 - 10.5 mg/dL) 8.8 8.9 Ionized Calcium Tenzin (1.09 - 1.30 MMOL/L) 1.19 1.21 Phosphorus (2.5 - 4.9 MG/DL) 3.2 3.7 Magnesium (1.80 - 2.40 mg/dL) 2.39 2.28 07/10 0959 Chemistry POC Glucose (70 - 110 MG/DL) 111 H Laboratory Tests 07/11 07/10 0229 1445 Hematology WBC (4.5 - 11.0 x10 3/uL) 22.2 H 24.7 H RBC (4.00 - 5.60 x10 6/uL) 2.91 L 2.45 L Hgb (12.5 - 16.9 g/dL) 8.6 L 7.5 L Hct (37.5 - 50.7 %) 27.7 L 23.6 L MCV (81.0 - 99.0 fL) 95.2 96.3 MCH (27.0 - 33.0 pg) 29.6 30.6 MCHC (33.0 - 37.0 g/dL) 31.0 L 31.8 L RDW (11.5 - 14.5 %) 18.1 H 18.0 H Plt Count (150 - 400 x10 3/uL) 100 L 91 L MPV (7.0 - 9.0 fL) 11.8 H 12.0 H Neut % (Auto) (56.0 - 77.0 %) 86.3 H 89.7 H Lymph % (Auto) (14.0 - 32.0 %) 4.2 L 3.2 L [place] % (Auto) (4.8 - 9.0 %) 7.5 5.4 Eos % (Auto) (0.3 - 3.7 %) 0.8 0.4 Baso % (Auto) (0.0 - 2.0 %) 0.3 0.2 Neut # (Auto) (2.0 - 7.6 x10 3/uL) 19.22 H 22.1 4 H Lymph # (Auto) (1.0 - 3.8 x10 3/uL) 0.93 L 0.79 L [place] # (Auto) (0.1 - 0.8 x10 3/uL) 1.66 H 1.32 H Eos # (Auto) (0.0 - 0.2 x10 3/uL) 0.17 0.09 Baso # (Auto) (0.0 - 0.2 x10 3/uL) 0.06 0.06 Abs Immat Gran (auto) (0.00 - 0.03 x10 3/uL) 0. 19 H 0.26 H Add Manual Diff NO NO Immature Gran % (0.0 - 2.0 %) 0.9 1.1 Nucleated RBC % (0 - 0 %) 0.0 0.0 Nucleated RBCs # (Man) (0.0 - 0.1 x10 3/uL) 0. 00 0.00 Immature Plt Fraction (0.9 - 11.2 %) 6.5 Laboratory Tests 07/11/22 0229: [Embedded Image Not Available] 07/10/22 2008: [Embedded Image Not Available] 07/10/22 1445: [Embedded Image Not Available] 07/10/22 1000: [Embedded Image Not Available] Radiology data Recent Impressions: RADIOLOGY - XR CHEST 1 V 07/11 0554 Report Impression - Status: SIGNED Entered: 07/11/2022 1255 IMPRESSION: 1. Moderate enlarged cardiac silhouette. 2. Small bilateral pleural effusions. 3. Moderate to severe pulmonary edema versus inf iltrates, pneumonia. Progression of opacities within right lower chest. 4. Degenerative and postsurgical changes are dem onstrated, as described above. Impression By: [email or web address] - Manuel Vega M.D. Free Text Obj Notes Free Text Obj Notes: General appearance: Elderly male in no acute dis tress, interactive and conversational HEENT: atraumatic, normocephalic, moist mucosal membranes Neck: full range of motion, supple/no meningismu s Cardiovascular: S1-S2 regular rate and rhythm Respiratory: symmetric expansion, no acute respi ratory distress Abdomen: soft, non-tender, no distention, no gua rding Genitourinary: waters with minimal urine output Extremities: pedal pulses palpable, moves all, n o cyanosis, mild LE edema Musculoskeletal: normal inspection, no muscle sp asm 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ALTH: alert and oriented x3, CNII-XII gross ly intact, no motor deficits Skin: dry, intact and clean surgery dressing Diagnosis, Assessment Plan Problem list/A P: 1. CLAUDETTE (acute kidney injury) 2. CAD (coronary artery disease) 3. Goiter 4. BPH (benign prostatic hyperplasia) 5. Dyslipidemia 6. HTN (hypertension) Free text A P: 73-year-old male with Acute pulmonary insufficiency following thoracic surgery Status post CABG x 5 (MISTRY-LAD, SVG-Ladonna, SVG-OM1 < SVG-OM3, SVG-PDA) and ALAA Acute blood loss anemia Hypotension Ischemic cardiomyopathy, EF 30 to 34% Multivessel CAD CLAUDETTE on hemodialysis Continue mechanical ventilation, vent settings r eviewed Titrate FiO2 to keep saturation more than 90%. Spontaneous breathing trial as soon as possible Wean to extubate Follow ABGs and CXRs ABG shows metabolic acidosis. Patient re ceived 2 A of sodium bicarb and 1 g of calcium Keep off sedation Judicious pain control Milrinone drip 0.25 Epinephrine drip Norepinephrine drip Vasopressin drip Titrate drips to keep MAP more than 65 Wean milrinone off first per CV surgery Minimize fluids per CV surgery Aspirin and Plavix Atorvastatin Metoprolol Follow lactate level Monitor chest tube output Hemodialysis per nephrology Monitor urine output and kidney function Monitor and replete electrolytes Perioperative antibiotics Cardiac diet with bowel regimen once extubated BG control with insulin gtt per protocol PT/OT VTE prophylaxis. Stress ulcer prophylaxis. Discussed with CV surgery, anesthesia and ICU te am Critical care time 85 minutes 07/09 Appears neuro intact, multimodal pain control, m inimize narcotic use, no CO2 narcosis Extubated successfully, sats well on NC, wean O2 , monitor for hypercapnia, encourage I-S, obtain serial ABGs, CXR reviewed HD unstable, weaning vasopre ssors and inotrope, monitor HD parameters, low CVP, lactic acidosis with uptrending lactate, gentle volume resuscitation Oliguric CLAUDETTE, plan for CRRT per renal, h yperkalemia treated, obtain serial lab PO challenge, bowel regimen, serial abdominal ex am, monitor LFTs Leukocytosis postop, likely reactive, trend WBC, s/p antibiotic course for UTI , periop antibiotics Hgb trending down, no eviden ce of active bleed, monitor CTs output, RBC given HD instability Blood glucose control with insulin drip per prot ocol Encourage PT/OT and activity as tolerated DVT and GI prophylaxis with DAPT and PPI 2/2 Appears neuro intact, multimodal pain control, m inimize narcotic use sats well on NC, wean O2, encourage I-S, ABG and CXR reviewed HD fairly stable, on minimal vasopressor support , lactic acidosis cleared s/p resuscitation Oliguric CLAUDETTE, tolerated CRRT, holding off per re nal, monitor UOP and electrolytes closely Oral diet as tolerated, bowel regimen, monitor L FTs Leukocytosis postop, trend WBC, treated for UTI preop Hgb responded to PRBC, no evidence of active ble ed, minimal CTs output Blood glucose control, transitioned insulin drip to SSI Encourage PT/OT and out of bed as tolerated DVT and GI prophylaxis with DAPT and PPI 2/3 Remains neuro intact, pain appears well controll ed Sats well on NC, wean O2, encourage I-S, ABG and CXR reviewed HD unstable, remains on minimal vasopressor supp ort, attempt to wean, start midodrine Oliguric CLAUDETTE, off CRRT per r enal, minimal UOP, started renal dose dopamine drip Tolerating oral diet, continue bowel regimen, LF Ts normalized Leukocytosis postop, continue to trend WBC, keira georgi for UTI preop Hgb stable s/p PRBC, no evidence of active bleed , monitor pCT output Blood glucose control with sliding scale insulin Encourage PT/OT and out of bed as tolerated, CM for dispo plan DVT and GI prophylaxis with DAPT and PPI Consultants: cardiology, cardiovascular surgery, nephrology Plan discussed with: patient , consultants, nurse, interdisc care team, pharmacy/ pharmacist Critical care time: Minutes: 39 Electronically Signed by Edwardo Flannery MD on 02/0 7/23 at 0247 RPT #:[id number] END OF REPORT 2022-07-10 14:49:00-00:00 [facility]ACL [facility] Cardiothoracic Surgery Prog REPORT#:[id number] REPORT STATUS: Signed DATE:07/10/22 TIME: 1449 PATIENT: SHERRI ARCE UNIT #: [id number] ROOM/BED: [place] [id number] : 42 AGE: 81 SEX: M ATTEND: Srinath Kaur MD ADM AUTHOR: Rosalind Toribio * ALL edits or amendments must be made on the [email or web address] document * General Post-op: day 2 Status post: 07/08/22 CABG x 5 (MISTRY-LAD, SVG-Ladonna, SVG-OM1< SVG-OM3, SVG-PDA) ALAA EVH (RGSV) Subjective Chief complaint: Chest Pain Pre CABG eval s/p CABG no complaints Review of Systems Constitutional: Denies: chills, fever, malaise. Allergy/Immun: Denies: allergic reaction. Respiratory: Denies: SOB. Cardiovascular: Denies: chest pain, palpitations. GI: Denies: abdominal pain, nausea, vomiting. : Denies: dysuria, hematuria. Heme: Denies: bleeding. Neuro: Denies: dizziness, headache, vision change. All systems rev neg: except as marked Objective General VS/I O Last Documented: Result Date Time Pulse Ox 94 07/10 1138 B/P 110/36 07/10 1138 B/P Mean 54 07/10 1138 Temp 98.8 07/10 1138 Pulse 81 07/10 1138 Resp 24 07/10 1138 O2 Delivery Nasal cannula 07/10 1014 O2 Flow Rate 3 07/10 1014 FiO2 50 07/08 1918 24 hour I O ending at 0700: 07/10 0700 07/09 1900 Intake Total 1384.00 2715.00 Output Total 2867 2732 Balance -1483.00 -17.00 Intake, IV 554.00 815.00 Intake, Oral 480 1900 Intake, 350 Packed Cells Output, CRRT 2716 2200 Ultrafiltration Output, Chest 50 210 Tube Drainage Output, Urine 101 322 PATIENT WEIGHT: Weight (lb): 185 Weight (oz): 3.01 Weight (kg): 84.000 Dietitian Nutrition assessment The data set between the solid lines has been im ported from the dietitian's assessment. BMI Calculated: 25.1 Nutrition related diagnosis: Nutrition diagnosis details: Nutrition problem: Increased nutrient needs Nutrition etiology: Chronic disease Nutrition signs and symptoms: ESTIMATED NEEDS S/ P CABG Nutrition prescription: 1. R ECOMMEND CONTIUE CARDIAC DIET, MONITOR LABS WITH PT ON DIALYSIS. 2. CONTINUE NEPRO BID. 3. DIET EDUC ATION PRIOR TO DISCHARGE. 4. MONITOR PO, WT, LABS, BM. Dietitian name: Trang Rodriguez, DIET Assessment completed: 07/10/22 Physical Exam General appearance: alert, awake, oriented Wound/incision: Location: sternal Site condition: dressing clean dry, dressing in tact HEENT: anicteric, mucosal membranes moist Neck: supple/no meningismus Cardiovascular: normal heart sounds, regular rat e rhythm Respiratory: aerating well, symmetric expansion, no distress Abdomen: soft, non-tender, no distention Genitourinary: waters, oN hd Extremities: moves all 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ALTH: alert, oriented X 3, normal speech, n o motor deficits Psychiatry: normal affect, normal mood Current Medications Medications: Active Meds + DC'd Last 24 Hrs Ipratropium Kersey (ATROVENT) 500 MCG RTQ2H PRN PRN INH Cyanocobalamin (Vitamin B-12 500 mcg tab) 500 MC G DAILY PO Ferrous Sulfate (FERROUS SULFATE) 325 MG DAILY P O Bisacodyl (DULCOLAX) 10 MG ONCE PRN RECTAL Magnesium Hydroxide (MILK OF MAGNESIA) 30 ML ONC E PRN PO (DC) Insulin Human Lispro (HUMALOG) 0 AC HS SUBQ Calcium Gluconate/Sodium Chloride (Calcium Gluco hilario 1 GM/NS 50 mL) 50 ML ONCE ONE IV (DC) Calcium Gluconate/Sodium Chloride (Calcium Gluco hilario 1 GM/NS 50 mL) 50 ML ONCE ONE IV (DC) Atorvastatin Calcium (LIPITOR) 40 MG 2100 PO Calcium Gluconate/Sodium Chloride (Calcium Gluco hilario 1 GM/NS 50 mL) 50 ML ONCE ONE IV (DC) Clopidogrel Bisulfate (Plavix) 75 MG DAILY PO Polyethylene Glycol (MIRALAX) 17 GM DAILY PO Miscellaneous Information (PHARMACY TO DOSE/EVAL UATE) 1 EACH ASDIR MISC Calcium Chloride (CALCIUM CHLORIDE) 1 GM ASDIR P RN IV Sodium Chloride (SODIUM CHLORIDE 0.9%) 100 ML Calcium Chloride (CALCIUM CHLORIDE) 2 GM ASDIR P RN IV Sodium Chloride (SODIUM CHLORIDE 0.9%) 100 ML Magnesium Sulfate (MAGNESIUM SULFATE 4GM/SWFI 10 0ML) 100 ML ASDIR PRN IV Magnesium Sulfate (MAGNESIUM SULFATE 2GM/SWFI 50 ML) 50 ML ASDIR PRN IV Miscellaneous (PRISMASATE BGK 4/2.5 SOLUTION) 5, 000 ML ASDIR DIALYSIS Potassium Chloride (KCL 10MEQ/SWFI 50ML) 50 ML A SDIR PRN IV Sodium Chloride (SODIUM CHLORIDE 0.9%) 2,000 ML ASDIR PRN IV Sodium Phosphate (SODIUM PHOSPHATE) 25 MMOL ASDI R PRN IV Sodium Chloride (SODIUM CHLORIDE 0.9%) 250 ML Sodium Phosphate (SODIUM PHOSPHATE) 20 MMOL ASDI R PRN IV Sodium Chloride (SODIUM CHLORIDE 0.9%) 250 ML Sodium Phosphate (SODIUM PHOSPHATE) 15 MMOL ASDI R PRN IV Sodium Chloride (SODIUM CHLORIDE 0.9%) 250 ML Pantoprazole (PROTONIX) 40 MG DAILY@0600 PO Aspirin (ASPIRIN) 81 MG DAILY PO Vasopressin (VASOSTRICT 20 Unit/NS 100ML) 100 ML ASDIR IV (CKD) Amiodarone HCl (CORDARONE) 200 MG TID PO Docusate Sodium (COLACE) 100 MG BID PO Gabapentin (NEURONTIN) 200 MG BID PO Metoprolol Tartrate (LOPRESSOR) 12.5 MG Q12HR PO Mupirocin (BACTROBAN 2% 22 GM OINTMENT) 1 APPLIC BID NASAL Sennosides (Senna Lax 8.6 MG TABLET) 17.2 MG BED TIME PO Cefazolin Sodium (KEFZOL OR ANCEF) 6 GM ONCE ONE IV (DC) Sodium Chloride (SODIUM CHLORIDE 0.9%) 500 ML Ipratropium Kersey (ATROVENT) 500 MCG RTQ4H INH Acetaminophen (TYLENOL) 650 MG Q4H PRN PRN PO Acetaminophen (TYLENOL) 650 MG Q4H PRN PRN RECTA L Albumin Human (ALBUMINAR 25%) 25 GM ASDIR PRN IV (DC) Calcium Chloride (CALCIUM CHLORIDE) 1 GM ASDIR P RN IV Dextrose/Water (DEXTROSE 10% IN WATER) 125 ML DIR PRN IV (CKD) Dextrose/Water (DEXTROSE 10% IN WATER) 250 ML DIR PRN IV (CKD) Epinephrine (ADRENALIN CHLORIDE) 4 MG ASDIR IV Dextrose/Water (DEXTROSE 5% WATER) 246 ML Glucagon (GLUCAGON) 1 MG ASDIR PRN IM Insulin Human Regular (HumuLIN R) 100 UNIT ASDIR IV (DC) Sodium Chloride (SODIUM CHLORIDE 0.9%) 99 ML Magnesium Sulfate (MAGNESIUM SULFATE 4GM/SWFI 10 0ML) 100 ML ASDIR PRN IV Magnesium Sulfate (MAGNESIUM SULFATE 2GM/SWFI 50 ML) 50 ML ASDIR PRN IV Magnesium Sulfate/Dextrose (MAGNESIUM SULFATE 1G M/D5W 100ML) 100 ML ASDIR PRN IV Nitroglycerin/Dextrose (NITROGLYCERIN 50,000MCG/ D5W 250ML) 250 ML ASDIR IV Norepinephrine Bitartrate (NOREPINEPHRINE 8 MG/N S 250 ML) 250 ML TITRATE IV Ondansetron HCl (ZOFRAN) 4 MG Q6H PRN PRN IV Oxycodone HCl (ROXICODONE) 5 MG Q4H PRN PRN PO Oxycodone HCl (ROXICODONE) 10 MG Q4H PRN PRN PO Potassium Chloride (KCL 20MEQ/SWFI 100ML) 100 ML ASDIR PRN IV Sodium Bicarbonate (SODIUM BICARBONATE) 50 MEQ A SDIR PRN IV Sodium Chloride (SODIUM CHLORIDE 0.9%) 1,000 ML .Q20H IV Sodium Chloride (SODIUM CHLORIDE 0.9%) 250 ML Q2 4H IV Albumin Human (ALBUMINAR-25%) 12.5 GM ASDIR PRN IV Heparin Sodium (Porcine) (HEPARIN SODIUM) 3,000 UNIT ASDIR PRN DIALYSIS Lidocaine HCl (LIDOCAINE HCL/PF) 0.5 ML ASDIR NV N I-DERMAL (CKD) Mannitol (Mannitol 20%) 12.5 GM ASDIR PRN IV Sodium Chloride (SODIUM CHLORIDE 0.9%) 2,000 ML ASDIR PRN IV Tamsulosin HCl (Flomax 0.4 mg) 0.4 MG BEDTIME PO Results Findings/Data: Laboratory Tests 07/10 07/10 07/09 07/09 1005 7031 7117 4512 Blood Gas Puncture Site Art Line Art Line [place] Art L ine O2 Saturation (90 - 100 %) 96.7 91.7 93.2 ABG pH (7.35 - 7.45) 7.385 7.408 7.373 ABG pCO2 (35.0 - 45 mmHg) 46.4 H 42.4 43.6 ABG pO2 (80 - 100.0 mmHg) 89.1 62.6 L 69.7 L ABG HCO3 (22.0 - 26.0 MMOL/L) 27.8 H 26.8 H 25. 4 ABG Total CO2 29.2 28.1 26.8 ABG Base Excess (-4.0 - 4.0 MMOL/L) 2.7 2.1 0.2 ABG Hematocrit (37.5 - 50.7 %) 24 L 24 L 24 L 2 3 L ABG Hemoglobin (12.5 - 16.9 G/DL) 8.0 L 8.3 L 8 .1 L 7.8 L Marylu Test N/A VBG pH (7.33 - 7.45) 7.361 VBG pCO2 (43 - 47 mmHg) 46.8 VBG pO2 (10 - 50 mmHG) 33.2 VBG HCO3 (22 - 27 MMOL/L) 26.5 POC VBG Total CO2 27.9 VBG O2 Saturation (60 - 80 %) 61.0 VBG Base Excess (-4.0 - 4.0 MMOL/L) 1.1 Sodium (134 - 147 mmol/L) 136 139 139 140 Potassium (3.4 - 5.0 mmol/L) 4.8 4.6 4.6 4.8 Chloride (100 - 108 mmol/L) 102 104 102 105 Ionized Calcium (1.12 - 1.32 MMOL/L) 1.36 H 1.2 7 1.22 1.18 Lactic Acid (0.9 - 1.7 mmol/l) 1.3 0.7 L 0.6 L 0.8 L Temperature (F) 98.4 O2 Delivery Device Cannula [facility] 07/09 1840 Blood Gas Puncture Site R Radial O2 Saturation (90 - 100 %) 83.1 L ABG pH (7.35 - 7.45) 7.346 L ABG pCO2 (35.0 - 45 mmHg) 45.9 H ABG pO2 (80 - 100.0 mmHg) 50.5 L ABG HCO3 (22.0 - 26.0 MMOL/L) 25.1 ABG Total CO2 26.5 ABG Base Excess (-4.0 - 4.0 MMOL/L) -0.6 ABG Hematocrit (37.5 - 50.7 %) 25 L ABG Hemoglobin (12.5 - 16.9 G/DL) 8.3 L Sodium (134 - 147 mmol/L) 141 Potassium (3.4 - 5.0 mmol/L) 4.6 Chloride (100 - 108 mmol/L) 106 Ionized Calcium (1.12 - 1.32 MMOL/L) 1.16 Lactic Acid (0.9 - 1.7 mmol/l) 1.1 O2 Delivery Device Room Air Laboratory Tests 07/10 07/10 07/10 07/10 07/10 1156 1005 1000 0959 0559 Chemistry Sodium (134 - 147 mEq/L) 136 Potassium (3.4 - 5.0 mEq/L) 4.9 Chloride (100 - 108 mEq/L) 103 Carbon Dioxide (21 - 33 mEq/l) 26 Anion Gap (0 - 20) 12 BUN (7 - 18 mg/dL) 22 H Creatinine (0.6 - 1.3 mg/dL) 2.5 H POC Creatinine (0.8 - 1.3 mg/dL) 2.4 H Glomerular Filtr Rate (70 - 80) 25.5 L Glucose (70 - 110 mg/dL) 129 H POC Glucose (70 - 110 MG/DL) 146 H 111 H 146 H POC Glucose (mg/dL) (70 - 110 MG/DL) 139 H Calcium (8.0 - 10.5 mg/dL) 8.9 Ionized Calcium Tenzin (1.09 - 1.30 1.21 MMOL/L) Phosphorus (2.5 - 4.9 MG/DL) 3.7 Magnesium (1.80 - 2.40 mg/dL) 2.28 07/10 07/10 07/10 07/10 07/09 0515 0330 [id number] Chemistry Sodium (134 - 147 mEq/L) 141 Potassium (3.4 - 5.0 mEq/L) 4.8 Chloride (100 - 108 mEq/L) 107 Carbon Dioxide (21 - 33 mEq/l) 25 Anion Gap (0 - 20) 14 BUN (7 - 18 mg/dL) 18 Creatinine (0.6 - 1.3 mg/dL) 2.5 H POC Creatinine (0.8 - 1.3 mg/dL) 2.6 H 2.9 H Glomerular Filtr Rate (70 - 80) 25.5 L Glucose (70 - 110 mg/dL) 104 POC Glucose (70 - 110 MG/DL) 129 H 87 POC Glucose (mg/dL) (70 - 110 MG/DL) 111 H 152 H Calcium (8.0 - 10.5 mg/dL) 9.1 Ionized Calcium [place] (1.09 - 1.30 1.14 MMOL/L) Phosphorus (2.5 - 4.9 MG/DL) 3.8 Magnesium (1.80 - 2.40 mg/dL) 2.32 Total Bilirubin (0.0 - 1.0 mg/dL) 0.20 Direct Bilirubin (0.0 - 0.30 MG/DL) 0.10 Indirect Bilirubin (MG/DL) 0.10 AST (15 - 37 IUnit/L) 64 H ALT (30 - 65 IUnit/L) < 7 L Total Alk Phosphatase (20 - 125 54 IUnit/L) Total Protein (6.4 - 8.2 g/dL) 6.1 L Albumin (3.4 - 5.0 g/dL) 3.60 07/09 07/09 07/09 07/09 07/09 2135 2130 2016 184 1600 Chemistry Sodium (134 - 147 mEq/L) 142 143 Potassium (3.4 - 5.0 mEq/L) 5.0 4.8 Chloride (100 - 108 mEq/L) 109 H 109 H Carbon Dioxide (21 - 33 mEq/l) 26 26 Anion Gap (0 - 20) 12 13 BUN (7 - 18 mg/dL) 27 H 29 H Creatinine (0.6 - 1.3 mg/dL) 2.8 H 3.2 H POC Creatinine (0.8 - 1.3 mg/dL) 3.0 H 3.2 H Glomerular Filtr Rate (70 - 80) 22.3 L 19.0 L Glucose (70 - 110 mg/dL) 127 H 138 H POC Glucose (70 - 110 MG/DL) 104 POC Glucose (mg/dL) (70 - 110 MG/DL) 132 H 115 H Calcium (8.0 - 10.5 mg/dL) 7.9 L 8.7 Ionized Calcium [place] (1.09 - 1.30 1.11 1.16 MMOL/L) Phosphorus (2.5 - 4.9 MG/DL) 4.1 Magnesium (1.80 - 2.40 mg/dL) 2.25 2.28 Laboratory Tests 07/10 02/ 0330 1600 Hematology WBC (4.5 - 11.0 x10 3/uL) 23.5 H 20.9 H RBC (4.00 - 5.60 x10 6/uL) 2.66 L 2.60 L Hgb (12.5 - 16.9 g/dL) 8.1 L 7.9 L Hct (37.5 - 50.7 %) 25.5 L 25.0 L MCV (81.0 - 99.0 fL) 95.9 96.2 MCH (27.0 - 33.0 pg) 30.5 30.4 MCHC (33.0 - 37.0 g/dL) 31.8 L 31.6 L RDW (11.5 - 14.5 %) 18.2 H 18.3 H Plt Count (150 - 400 x10 3/uL) 88 L 83 L MPV (7.0 - 9.0 fL) 12.1 H 11.3 H Neut % (Auto) (56.0 - 77.0 %) 86.5 H 87.1 H Lymph % (Auto) (14.0 - 32.0 %) 3.6 L 3.9 L [place] % (Auto) (4.8 - 9.0 %) 8.3 7.9 Eos % (Auto) (0.3 - 3.7 %) 0.5 0.0 L Baso % (Auto) (0.0 - 2.0 %) 0.4 0.3 Neut # (Auto) (2.0 - 7.6 x10 3/uL) 20.33 H 18.2 0 H Lymph # (Auto) (1.0 - 3.8 x10 3/uL) 0.84 L 0.82 L [place] # (Auto) (0.1 - 0.8 x10 3/uL) 1.95 H 1.66 H Eos # (Auto) (0.0 - 0.2 x10 3/uL) 0.12 0.01 Baso # (Auto) (0.0 - 0.2 x10 3/uL) 0.10 0.06 Abs Immat Gran (auto) (0.00 - 0.03 x10 3/uL) 0. 17 H 0.16 H Add Manual Diff NO NO Immature Gran % (0.0 - 2.0 %) 0.7 0.8 Nucleated RBC % (0 - 0 %) 0.0 0.0 Nucleated RBCs # (Man) (0.0 - 0.1 x10 3/uL) 0.0 0 0.00 Radiology data: Recent Impressions: RADIOLOGY - XR CHEST 1 V 07/10 0595 Report Impression - Status: SIGNED Entered: 07/10/2022 0831 IMPRESSION: 1. Small left apical pneumothorax, new from prio r studies with thoracostomy tube in place. 2. Stable pulmonary opacities likely combination of airspace disease and atelectasis. 3. Stable small pleural effusions. 4. Stable postoperative cardiomediastinal silhou ette. Impression By: Robert Ratliff M.D. Results: labs reviewed, vital signs stable, danilo turcios personally rev'd, x-ray personally reviewed, current med profile rev'd Quality: Trauma Gen Surg Advanced Care Plan 65 or Older Discussed with: patient Discussion included: living will (none), power of employment law attorney (none), code status ( full code) VTE Prophylaxis - General VTE prophylaxis initiated: yes Diagnosis, Assessment Plan Hospital course to date: This is a 81-year-old gentleman who presented to an outside hospital with complaints of chest pains while walking at his home on Thursday. He denies any previous history of coronary artery disease or o ther NE. He was seen and evaluated at [facility]. He was found to have a urinary tract infection with urinary retention and acute kidne y. He was started on dialysis via a left femoral temporary catheter. He underw ent dialysis on Thursday, Thursday. Renal has been consulted During his work-up at outside hospital he underw ent Left heart catheterization showing sever e Left Main 70%. LAD: Proximal diffuse 80% stenosis and then diffuse 60% in the midsegment and on the distal segment, there is focal 70% stenosis. Diagonal branches with luminal irregularities. Left circumflex, codominant circulation with pro ximal 80%, mid 80 to 90% and then in the OM, there is proximal 60%, distal le ft circumflex has a 70% stenosis. RCA large and dominant with proximal 4 0% stenosis, mid 60% stenosis and then diffuse 50% stenosi s all the way distally and the PLV and the PDA with luminal irregularities. CV surgery consulted for evaluation for coronary bypass graft. CAROTIDS - No carotid stenosis CT chest complete IMPRESSION: Small bilateral pleural effusions with bibasila r atelectasis. Echo: 1. Left ventricle: The cavity size is at the upp er limits of normal. Wall thickness is mildly increased. Systolic fu nction is severely reduced. The estimated ejection fraction is 30- 34%. Moderate hypokinesis of the entire myocardium. Doppler p arameters are consistent with abnormal left ventricular relax ation (grade 1 diastolic dysfunction). 2. Pericardium, extracardiac: A small pericardia l effusion is identified along the left ventricular free wall, along the right ventricular free wall, and along the right atrial free wall . Assessment/Plan 1) CAD Mutlivessel Will obtain echo,carotids. 2) CLAUDETTE Started dialysis on Creatine 7.3 Renal consulted. 3) BPH- Urinary retention. Waters in place Workup for CABG underway. Will get functional assessment with PT. PFT pending Carotid dopplers- No disease Echo Pending Dialyiss per Renal. Baseline Cr unknown. 07/04 07/04 Doing well today, alert, up in the chair. Denies chest pain Echocardiogram showed LVEF 30 to 34%, mild MR, t rivial TR CT chest images reviewed Encourage I-S and mobilization Creatinine 5.5 from 7.3, good urine output. Pao l US showed bilateral severe hydronephrosis. Plan for HD today and tomorrow Will tentatively schedule patient for surgery on Thursday. Patient seen and plan reviewed with Dr Schwarz 07/05 Remains in a stable condition, denies chest pain BUN 53, creatinine 5.4. Plan for hemodia lysis today and tomorrow for clearance He is also on Lasix 20 mg IV twice daily, urine output 1.1 L overnight We will calculate risk of surgery with STS score Encourage I-S and mobilization Will tentatively schedule patient for surgery on Thursday. Pt seen and plan reviewed with Dr Schwarz 07/06 BUN 36, creatinine 4.4. Plan for hemodialysis to day Awaiting CABG tomorrow Surgery, risks involved, STS score, benefits, co mplications and alternatives were explained to the patient. He acknow ledged understanding and is willing to proceed N.p.o. after midnight Patient seen and plan reviewed with Dr. Schwarz 07/09/22 POD 1 CABG x 5 (MISTRY-LAD, SVG-Ladonna, SVG-OM1< SVG-OM3, S VG-PDA), RC ESPINOZA (RGSV) Patient hemodynamically unstable, on epi at 4, a nd vaso .04, decreased uop overnight- 150cc Started patient on CRRT 2k/3.5 Wean epi as tolerated, Cardiac incex 2.8-3 labs and chest x-ray reviewed, electroly marcie stable, hgb 6.5- transfuse 2 units PRBC On 4l nasal cannula- encourage incentive spirome ter and deep breathing Keep both chest tubes and monitor outputs Glycemic control on insulin drip Cardiac diet Bowel regimen protocol Pain management SCDs for DVT and PPI for GI prophylaxis PT/OT Monitor patient closely in CVICU Plan of care discussed with Dr. Schwarz 07/10/22 POD 2 Patient alert, awake, and oriented, no distres n oted labs and CXR reviewed stable Breathing comfortably on 3l nasal cannula- wean as tolerated to melissa O2 sats > 92 % Encourage I-S use and deep breathing On CRRT- able to remove 2.9L overnight- nephrolo gy following Cardiac index 3.1- wean off epi drip Keep chest tubes for now and monitor outputs Transition to sliding scale insulin- cardiac t Try to get patient out of bed to chair today- am bulate with PT/OT SCDs for DVT prophylaxis Keep patient in CVICU for close monitoring Consultants: cardiology, cardiovascular surgery, nephrology at 2033 at 1944 RPT #:[id number] END OF REPORT 2022-07-10 14:05:00-00:00 [facility] ([facility]) Cardiology Progress Note REPORT#:[id number] REPORT STATUS: Signed DATE:07/10/22 TIME: 1405 PATIENT: SHERRI ARCE UNIT #: [id number] ROOM/BED: [place] [address] : 42 AGE: 81 SEX: M ATTEND: Radha Ward ADM AUTHOR: Sonya Stacy CNP * ALL edits or amendments must be made on the [email or web address] document * Subjective Comments: On small dose of epinephrine drip Dizziness upon standing Chest tube, PA catheter indwelling Objective General VS/I O: 24 hour I O ending at 0700: 02 0700 02/ 1900 Intake Total 1384.00 2715.00 Output Total 2867 2732 Balance -1483.00 -17.00 Intake, IV 554.00 815.00 Intake, Oral 480 1900 Intake, 350 Packed Cells Output, CRRT 2716 2200 Ultrafiltration Output, Chest 50 210 Tube Drainage Output, Urine 101 322 Vital Signs: Date Time Temp Pulse Resp B/P B/P Pulse O2 O2 F low FiO2 Mean Ox Delivery Rate 07/10 1138 37.1 81 24 110/36 54 94 02/ 1130 37.1 81 27 89/51 64 94 02/02 1115 37.1 80 20 94/38 56 96 02/02 1100 37.1 80 27 76/42 54 94 02/02 1045 37.0 79 26 104/33 50 94 02/02 1030 37.0 79 24 86/47 61 95 02/02 1015 37.0 78 29 105/36 52 95 02/02 1014 Nasal 3 cannula 02/02 1000 37.0 79 24 86/51 63 97 02/02 0945 37.0 77 24 110/37 53 98 02/02 0930 37.0 79 22 80/46 58 98 02/02 0915 37.0 78 26 118/34 51 95 02/02 0900 36.8 79 30 84/45 58 95 02/02 0845 37.0 80 27 111/37 53 73 02/02 0830 36.9 72 26 108/37 51 94 02/02 0815 36.9 80 36 139/49 69 97 02/02 0800 36.9 78 24 92/51 68 96 02/02 0745 36.9 79 24 124/45 62 89 02/02 0730 36.9 78 23 88/50 63 90 02/02 0715 36.9 80 21 116/45 61 91 02/02 0700 36.9 79 23 91/52 66 94 02/02 0600 135/46 65 02/02 0600 37.0 80 24 95 02/02 0536 127/41 60 02/02 0536 37.0 81 26 94 02/02 0500 36.9 80 76 02/02 0430 114/40 02/02 0430 36.9 80 28 96 02/02 0400 126/46 65 02/02 0400 37.0 80 29 98/51 70 97 02/02 0330 117/44 61 02/02 0330 37.0 79 96 02/02 0300 121/46 63 02/02 0300 37.0 76 29 95/53 71 95 02/02 0230 126/49 66 02/02 0230 37.0 77 26 100/56 74 94 02/02 0200 117/47 63 02/02 0200 37.0 76 28 96/55 72 93 02/02 0130 132/50 68 02/02 0130 37.0 76 25 105/57 77 95 02/02 0100 127/49 67 02/02 0100 37.1 75 27 105/56 77 95 02/02 0030 121/46 63 02/02 0030 37.1 75 27 116/53 76 93 02/02 0012 21 02/02 0000 117/49 68 02/02 0000 37.1 74 108/58 77 96 02/01 2330 140/51 73 02/01 2330 37.2 74 27 113/59 83 95 02/01 2300 155/53 75 02/01 2300 37.2 73 26 113/56 79 96 02/01 2230 115/49 67 02/01 2230 37.2 72 25 105/58 78 94 02/01 2200 109/48 65 02/01 2200 37.2 72 28 105/54 75 94 02/01 2130 127/46 64 02/01 2130 37.0 72 29 102/56 76 94 02/01 2100 118/45 62 02/01 2100 36.8 72 26 98/52 72 94 02/01 2029 126/48 65 02/ 2030 36.4 73 100/55 73 96 07/09 2013 95 Nasal 3 cannula 07/09 1999 High flow 8 nasal cannula 07/09 1999 121/43 61 02/1999 36.0 72 23 100/54 74 100 02/ 1930 123/46 65 02/01 1930 35.6 69 24 109/58 80 100 02/01 1900 131/50 71 02/01 1900 35.3 66 26 114/62 82 100 02/01 1830 128/43 62 02/01 1830 35.2 65 23 109/52 74 92 02/01 1801 129/47 67 02/01 1801 35.3 66 26 106/55 75 94 02/01 1700 104/43 58 02/01 1700 35.4 64 21 89/50 64 95 02/01 1630 119/44 61 02/01 1630 35.4 65 23 96/54 69 94 02/01 1601 110/40 57 02/01 1601 35.7 67 26 98/54 70 94 02/01 1530 121/42 60 02/01 1530 35.9 68 23 102/58 77 96 02/01 1500 139/47 70 02/01 1500 36.3 71 24 122/60 85 96 02/01 1430 127/45 65 02/01 1430 36.7 72 23 115/56 80 97 PATIENT WEIGHT: Weight (lb): 185 Weight (oz): 3.01 Weight (kg): 84.000 Medications: Active Meds + DC'd Last 24 Hrs Ipratropium Kersey (ATROVENT) 500 MCG RTQ2H PRN PRN INH Cyanocobalamin (Vitamin B-12 500 mcg tab) 500 MC G DAILY PO Ferrous Sulfate (FERROUS SULFATE) 325 MG DAILY P O Bisacodyl (DULCOLAX) 10 MG ONCE PRN RECTAL Magnesium Hydroxide (MILK OF MAGNESIA) 30 ML ONC E PRN PO (DC) Insulin Human Lispro (HUMALOG) 0 AC HS SUBQ Calcium Gluconate/Sodium Chloride (Calcium Gluco hilario 1 GM/NS 50 mL) 50 ML ONCE ONE IV (DC) Calcium Gluconate/Sodium Chloride (Calcium Gluco hilario 1 GM/NS 50 mL) 50 ML ONCE ONE IV (DC) Atorvastatin Calcium (LIPITOR) 40 MG 2100 PO Calcium Gluconate/Sodium Chloride (Calcium Gluco hilario 1 GM/NS 50 mL) 50 ML ONCE ONE IV (DC) Clopidogrel Bisulfate (Plavix) 75 MG DAILY PO Polyethylene Glycol (MIRALAX) 17 GM DAILY PO Miscellaneous Information (PHARMACY TO DOSE/EVAL UATE) 1 EACH ASDIR MISC Calcium Chloride (CALCIUM CHLORIDE) 1 GM ASDIR P RN IV Sodium Chloride (SODIUM CHLORIDE 0.9%) 100 ML Calcium Chloride (CALCIUM CHLORIDE) 2 GM ASDIR P RN IV Sodium Chloride (SODIUM CHLORIDE 0.9%) 100 ML Magnesium Sulfate (MAGNESIUM SULFATE 4GM/SWFI 10 0ML) 100 ML ASDIR PRN IV Magnesium Sulfate (MAGNESIUM SULFATE 2GM/SWFI 50 ML) 50 ML ASDIR PRN IV Miscellaneous (PRISMASATE BGK 4/2.5 SOLUTION) 5, 000 ML ASDIR DIALYSIS Potassium Chloride (KCL 10MEQ/SWFI 50ML) 50 ML A SDIR PRN IV Sodium Chloride (SODIUM CHLORIDE 0.9%) 2,000 ML ASDIR PRN IV Sodium Phosphate (SODIUM PHOSPHATE) 25 MMOL ASDI R PRN IV Sodium Chloride (SODIUM CHLORIDE 0.9%) 250 ML Sodium Phosphate (SODIUM PHOSPHATE) 20 MMOL ASDI R PRN IV Sodium Chloride (SODIUM CHLORIDE 0.9%) 250 ML Sodium Phosphate (SODIUM PHOSPHATE) 15 MMOL ASDI R PRN IV Sodium Chloride (SODIUM CHLORIDE 0.9%) 250 ML Pantoprazole (PROTONIX) 40 MG DAILY@0600 PO Aspirin (ASPIRIN) 81 MG DAILY PO Vasopressin (VASOSTRICT 20 Unit/NS 100ML) 100 ML ASDIR IV (CKD) Amiodarone HCl (CORDARONE) 200 MG TID PO Docusate Sodium (COLACE) 100 MG BID PO Gabapentin (NEURONTIN) 200 MG BID PO Metoprolol Tartrate (LOPRESSOR) 12.5 MG Q12HR PO Mupirocin (BACTROBAN 2% 22 GM OINTMENT) 1 APPLIC BID NASAL Sennosides (Senna Lax 8.6 MG TABLET) 17.2 MG BED TIME PO Cefazolin Sodium (KEFZOL OR ANCEF) 6 GM ONCE ONE IV (DC) Sodium Chloride (SODIUM CHLORIDE 0.9%) 500 ML Ipratropium Kersey (ATROVENT) 500 MCG RTQ4H INH Acetaminophen (TYLENOL) 650 MG Q4H PRN PRN PO Acetaminophen (TYLENOL) 650 MG Q4H PRN PRN RECTA L Albumin Human (ALBUMINAR 25%) 25 GM ASDIR PRN IV (DC) Calcium Chloride (CALCIUM CHLORIDE) 1 GM ASDIR P RN IV Dextrose/Water (DEXTROSE 10% IN WATER) 125 ML DIR PRN IV (CKD) Dextrose/Water (DEXTROSE 10% IN WATER) 250 ML DIR PRN IV (CKD) Epinephrine (ADRENALIN CHLORIDE) 4 MG ASDIR IV Dextrose/Water (DEXTROSE 5% WATER) 246 ML Glucagon (GLUCAGON) 1 MG ASDIR PRN IM Insulin Human Regular (HumuLIN R) 100 UNIT ASDIR IV (DC) Sodium Chloride (SODIUM CHLORIDE 0.9%) 99 ML Magnesium Sulfate (MAGNESIUM SULFATE 4GM/SWFI 10 0ML) 100 ML ASDIR PRN IV Magnesium Sulfate (MAGNESIUM SULFATE 2GM/SWFI 50 ML) 50 ML ASDIR PRN IV Magnesium Sulfate/Dextrose (MAGNESIUM SULFATE 1G M/D5W 100ML) 100 ML ASDIR PRN IV Nitroglycerin/Dextrose (NITROGLYCERIN 50,000MCG/ D5W 250ML) 250 ML ASDIR IV Norepinephrine Bitartrate (NOREPINEPHRINE 8 MG/N S 250 ML) 250 ML TITRATE IV Ondansetron HCl (ZOFRAN) 4 MG Q6H PRN PRN IV Oxycodone HCl (ROXICODONE) 5 MG Q4H PRN PRN PO Oxycodone HCl (ROXICODONE) 10 MG Q4H PRN PRN PO Potassium Chloride (KCL 20MEQ/SWFI 100ML) 100 ML ASDIR PRN IV Sodium Bicarbonate (SODIUM BICARBONATE) 50 MEQ A SDIR PRN IV Sodium Chloride (SODIUM CHLORIDE 0.9%) 1,000 ML .Q20H IV Sodium Chloride (SODIUM CHLORIDE 0.9%) 250 ML Q2 4H IV Albumin Human (ALBUMINAR-25%) 12.5 GM ASDIR PRN IV Heparin Sodium (Porcine) (HEPARIN SODIUM) 3,000 UNIT ASDIR PRN DIALYSIS Lidocaine HCl (LIDOCAINE HCL/PF) 0.5 ML ASDIR NV N I-DERMAL (CKD) Mannitol (Mannitol 20%) 12.5 GM ASDIR PRN IV Sodium Chloride (SODIUM CHLORIDE 0.9%) 2,000 ML ASDIR PRN IV Tamsulosin HCl (Flomax 0.4 mg) 0.4 MG BEDTIME PO Physical Exam General appearance: alert, awake, no acute distr ess Neck: full range of motion, no JVD Cardiovascular: CV assessment: pedal edema (RLE - trace), regul ar rate and rhythm, no murmur Respiratory: decreased breath sounds, no distres s Abdomen: soft, non-tender, normal bowel sounds, no distention, no guarding Genitourinary: urinary catheter, urine Upper extremity: UE assessment: normal temperature, no edema Lower extremity: LE assessment: edema (RLE trace), normal temper ature, no edema Musculoskeletal: normal inspection 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 4 ABG Total CO2 29.2 28.1 26.8 ABG Base Excess (-4.0 - 4.0 MMOL/L) 2.7 2.1 0.2 ABG Hematocrit (37.5 - 50.7 %) 24 L 24 L 24 L 2 3 L ABG Hemoglobin (12.5 - 16.9 G/DL) 8.0 L 8.3 L 8 .1 L 7.8 L Marylu Test N/A VBG pH (7.33 - 7.45) 7.361 VBG pCO2 (43 - 47 mmHg) 46.8 VBG pO2 (10 - 50 mmHG) 33.2 VBG HCO3 (22 - 27 MMOL/L) 26.5 POC VBG Total CO2 27.9 VBG O2 Saturation (60 - 80 %) 61.0 VBG Base Excess (-4.0 - 4.0 MMOL/L) 1.1 Sodium (134 - 147 mmol/L) 136 139 139 140 Potassium (3.4 - 5.0 mmol/L) 4.8 4.6 4.6 4.8 Chloride (100 - 108 mmol/L) 102 104 102 105 Ionized Calcium (1.12 - 1.32 MMOL/L) 1.36 H 1.2 7 1.22 1.18 Lactic Acid (0.9 - 1.7 mmol/l) 1.3 0.7 L 0.6 L 0.8 L Temperature (F) 98.4 O2 Delivery Device Cannula [facility] 07/09 1840 Blood Gas Puncture Site R Radial O2 Saturation (90 - 100 %) 83.1 L ABG pH (7.35 - 7.45) 7.346 L ABG pCO2 (35.0 - 45 mmHg) 45.9 H ABG pO2 (80 - 100.0 mmHg) 50.5 L ABG HCO3 (22.0 - 26.0 MMOL/L) 25.1 ABG Total CO2 26.5 ABG Base Excess (-4.0 - 4.0 MMOL/L) -0.6 ABG Hematocrit (37.5 - 50.7 %) 25 L ABG Hemoglobin (12.5 - 16.9 G/DL) 8.3 L Sodium (134 - 147 mmol/L) 141 Potassium (3.4 - 5.0 mmol/L) 4.6 Chloride (100 - 108 mmol/L) 106 Ionized Calcium (1.12 - 1.32 MMOL/L) 1.16 Lactic Acid (0.9 - 1.7 mmol/l) 1.1 O2 Delivery Device Room Air Laboratory Tests 07/10 07/10 07/10 07/10 07/10 1156 1005 1000 0959 0525 Chemistry Sodium (134 - 147 mEq/L) 136 Potassium (3.4 - 5.0 mEq/L) 4.9 Chloride (100 - 108 mEq/L) 103 Carbon Dioxide (21 - 33 mEq/l) 26 Anion Gap (0 - 20) 12 BUN (7 - 18 mg/dL) 22 H Creatinine (0.6 - 1.3 mg/dL) 2.5 H POC Creatinine (0.8 - 1.3 mg/dL) 2.4 H Glomerular Filtr Rate (70 - 80) 25.5 L Glucose (70 - 110 mg/dL) 129 H POC Glucose (70 - 110 MG/DL) 146 H 111 H 146 H POC Glucose (mg/dL) (70 - 110 MG/DL) 139 H Calcium (8.0 - 10.5 mg/dL) 8.9 Ionized Calcium Tenzin (1.09 - 1.30 MMOL/L) 1.21 Phosphorus (2.5 - 4.9 MG/DL) 3.7 Magnesium (1.80 - 2.40 mg/dL) 2.28 07/10 07/10 07/10 07/10 07/09 0515 0330 0328 0218 2349 Chemistry Sodium (134 - 147 mEq/L) 141 Potassium (3.4 - 5.0 mEq/L) 4.8 Chloride (100 - 108 mEq/L) 107 Carbon Dioxide (21 - 33 mEq/l) 25 Anion Gap (0 - 20) 14 BUN (7 - 18 mg/dL) 18 Creatinine (0.6 - 1.3 mg/dL) 2.5 H POC Creatinine (0.8 - 1.3 mg/dL) 2.6 H 2.9 H Glomerular Filtr Rate (70 - 80) 25.5 L Glucose (70 - 110 mg/dL) 104 POC Glucose (70 - 110 MG/DL) 129 H 87 POC Glucose (mg/dL) (70 - 110 MG/DL) 111 H 152 H Calcium (8.0 - 10.5 mg/dL) 9.1 Ionized Calcium Tenzin (1.09 - 1.30 MMOL/L) 1.14 Phosphorus (2.5 - 4.9 MG/DL) 3.8 Magnesium (1.80 - 2.40 mg/dL) 2.32 Total Bilirubin (0.0 - 1.0 mg/dL) 0.20 Direct Bilirubin (0.0 - 0.30 MG/DL) 0.10 Indirect Bilirubin (MG/DL) 0.10 AST (15 - 37 IUnit/L) 64 H ALT (30 - 65 IUnit/L) < 7 L Total Alk Phosphatase (20 - 125 IUnit/L) 54 Total Protein (6.4 - 8.2 g/dL) 6.1 L Albumin (3.4 - 5.0 g/dL) 3.60 07/09 1600 Chemistry Sodium (134 - 147 mEq/L) 142 143 Potassium (3.4 - 5.0 mEq/L) 5.0 4.8 Chloride (100 - 108 mEq/L) 109 H 109 H Carbon Dioxide (21 - 33 mEq/l) 26 26 Anion Gap (0 - 20) 12 13 BUN (7 - 18 mg/dL) 27 H 29 H Creatinine (0.6 - 1.3 mg/dL) 2.8 H 3.2 H POC Creatinine (0.8 - 1.3 mg/dL) 3.0 H 3.2 H Glomerular Filtr Rate (70 - 80) 22.3 L 19.0 L Glucose (70 - 110 mg/dL) 127 H 138 H POC Glucose (70 - 110 MG/DL) 104 POC Glucose (mg/dL) (70 - 110 MG/DL) 132 H 115 H Calcium (8.0 - 10.5 mg/dL) 7.9 L 8.7 Ionized Calcium Tenzin (1.09 - 1.30 MMOL/L) 1.11 1.16 Phosphorus (2.5 - 4.9 MG/DL) 4.1 Magnesium (1.80 - 2.40 mg/dL) 2.25 2.28 Laboratory Tests 07/10 07/09 0330 1600 Hematology WBC (4.5 - 11.0 x10 3/uL) 23.5 H 20.9 H RBC (4.00 - 5.60 x10 6/uL) 2.66 L 2.60 L Hgb (12.5 - 16.9 g/dL) 8.1 L 7.9 L Hct (37.5 - 50.7 %) 25.5 L 25.0 L MCV (81.0 - 99.0 fL) 95.9 96.2 MCH (27.0 - 33.0 pg) 30.5 30.4 MCHC (33.0 - 37.0 g/dL) 31.8 L 31.6 L RDW (11.5 - 14.5 %) 18.2 H 18.3 H Plt Count (150 - 400 x10 3/uL) 88 L 83 L MPV (7.0 - 9.0 fL) 12.1 H 11.3 H Neut % (Auto) (56.0 - 77.0 %) 86.5 H 87.1 H Lymph % (Auto) (14.0 - 32.0 %) 3.6 L 3.9 L [place] % (Auto) (4.8 - 9.0 %) 8.3 7.9 Eos % (Auto) (0.3 - 3.7 %) 0.5 0.0 L Baso % (Auto) (0.0 - 2.0 %) 0.4 0.3 Neut # (Auto) (2.0 - 7.6 x10 3/uL) 20.33 H 18.2 0 H Lymph # (Auto) (1.0 - 3.8 x10 3/uL) 0.84 L 0.82 L [place] # (Auto) (0.1 - 0.8 x10 3/uL) 1.95 H 1.66 H Eos # (Auto) (0.0 - 0.2 x10 3/uL) 0.12 0.01 Baso # (Auto) (0.0 - 0.2 x10 3/uL) 0.10 0.06 Abs Immat Gran (auto) (0.00 - 0.03 x10 3/uL) 0 .17 H 0.16 H Add Manual Diff NO NO Immature Gran % (0.0 - 2.0 %) 0.7 0.8 Nucleated RBC % (0 - 0 %) 0.0 0.0 Nucleated RBCs # (Man) (0.0 - 0.1 x10 3/uL) 0.0 0 0.00 Laboratory Tests 07/10 07/10 07/09 07/09 1000 0330 2135 1600 Chemistry Magnesium (1.80 - 2.40 mg/dL) 2.28 2.32 2.25 2. 28 Radiology data: Recent Impressions: RADIOLOGY - XR CHEST 1 V 07/10 8760 Report Impression - Status: SIGNED Entered: 07/10/2022 3926 IMPRESSION: 1. Small left apical pneumothorax, new from prio r studies with thoracostomy tube in place. 2. Stable pulmonary opacities likely combination of airspace disease and atelectasis. 3. Stable small pleural effusions. 4. Stable postoperative cardiomediastinal silhou ette. Impression By: Robert Ratliff M.D. Results: labs reviewed, vital signs reviewed, [facility] personally rev'd Telemetry Interpretation: sinus rhythm Diagnosis, Assessment Plan Problem List/A P: 1. HTN (hypertension) 2. CLAUDETTE (acute kidney injury) 3. CAD (coronary artery disease) 4. Dyslipidemia 5. BPH (benign prostatic hyperplasia) Plan discussed with: patient, nurse Free Text DxA P Notes Free Text DxA P Notes: Mr. Arec is a pleasant 81 y/o M w/ PMHx: HTN, HLD presented to [facility] on 06/28/22 for chest pa in and sob. He was diagnosed NSTEMI w/ Trop was peaked 7600's, EKG w/ normal ST and CLAUDETTE w/ Cr 14 on admission. He underwent LHC on 07/[address] Layne which showed severe mLM 70% stenosis, pLAD diffuse 80% stenosis, mLA D 60% and focal 70% stenosis; pLCx 80% stenosis, dLCx 70% stenosis, pOM 60% stenosis; p RCA 40% stenosis, mRCA 60% stenosis and diffuse 50-60% dRCA. He transferred to [facility] ED for CABG. 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 On statins, BB, ASA, plavix- as tolerated Echo: LVEF 30-34%, repeat echo prior to dc CXR 2/2 small left apical pneumothorax, chest t ube in place Postop care per CTS - Acute Systolic HF with ischemic CMP LVEF 30-34 % strict I/Os, daily weights, fluid restriction, low NA diet diuresis as needed per Nephrology no charly/arb/aldactone due to CLAUDETTE GDMT on discharge - CLAUDETTE. HD Per nephro. likely from obstructive uropathy. s/p waters cath. Renal ultrasound showed severe thickening of th e bladder, cholelitiasis. - HTN. hypotension post-op On low-dose epinephrine drip, wean off if able - HLD. On statins. - Anemia. monitor at 1625 Electronically Signed by Liset Ennis MD on at 0834 RPT #:[id number] END OF REPORT 2022-07-10 12:46:00-00:00 [facility] ([facility]) Hospitalist Progress Note REPORT#:[id number] REPORT STATUS: Signed DATE:07/10/22 TIME: 1246 PATIENT: SHERRI ARCE UNIT #: [id number] ROOM/BED: [place] [address] : 42 AGE: 81 SEX: M ATTEND: Radha Ward MD ADM AUTHOR: Radha Ward MD * ALL edits or amendments must be made on the [email or web address] document * Subjective Chief complaint: Status post CABG x5 on 07/09, 1 chest tube out, 1 chest tube in, on epinephrine, on CRRT, on 2 L oxygen via nasal cannula. Skinny allen reports pain is well controlled. He is feeling better. HPI: 81 y/o man with PMHx of HTN, Dyslipidemia that [facility] with chest pain and found to have a NSTEMI and also acute renal failure. Underwent cardiac c ath yesterday and found to have severe CAD including left main disease. Transfer here f or CABG evaluation. He also underwent HD Thursday and Thursday of this week. HD catheter was place at [facility]. Currently not having any chest pain. Had chest pain with SOB when he presentted to the previous hospital. Objective General VS/I O: Vital Signs: Date Time Temp Pulse Resp B/P B/P Pulse O2 O2 F low FiO2 Mean Ox Delivery Rate 07/10 1430 87 31 90/51 65 95 02/02 1400 99.3 85 27 88/53 65 95 02/02 1330 99.3 86 25 81/50 60 96 02/02 1315 99.1 85 33 108/36 55 96 02/02 1300 99.1 82 26 82/52 62 95 02/02 1245 99.0 82 32 101/35 51 95 02/02 1230 99.0 82 25 93/54 68 94 02/02 1215 99.0 83 22 94/36 51 95 02/02 1200 99.0 84 27 95/51 67 93 02/02 1145 99.0 81 24 111/38 55 94 02/02 1138 98.8 81 24 110/36 54 94 02/02 1130 98.8 81 27 89/51 64 94 02/02 1115 98.8 80 20 94/38 56 96 02/02 1100 98.8 80 27 76/42 54 94 02/02 1045 98.6 79 26 104/33 50 94 02/02 1030 98.6 79 24 86/47 61 95 02/02 1015 98.6 78 29 105/36 52 95 02/02 1014 Nasal 3 cannula 02/02 1000 98.6 79 24 86/51 63 97 02/02 0945 98.6 77 24 110/37 53 98 02/02 0930 98.6 79 22 80/46 58 98 02/02 0915 98.6 78 26 118/34 51 95 02/02 0900 98.2 79 30 84/45 58 95 02/02 0845 98.6 80 27 111/37 53 73 02/02 0830 98.4 72 26 108/37 51 94 02/02 0815 98.4 80 36 139/49 69 97 02/02 0800 98.4 78 24 92/51 68 96 02/02 0745 98.4 79 24 124/45 62 89 02/02 0730 98.4 78 23 88/50 63 90 02/02 0715 98.4 80 21 116/45 61 91 02/02 0700 98.4 79 23 91/52 66 94 02/02 0600 135/46 65 02/02 0600 98.6 80 24 95 02/02 0536 127/41 60 02/02 0536 98.6 81 26 94 02/02 0500 98.4 80 76 02/02 0430 114/40 02/02 0430 98.4 80 28 96 02/02 0400 126/46 65 02/02 0400 98.6 80 29 98/51 70 97 02/02 0330 117/44 61 02/02 0330 98.6 79 96 02/02 0300 121/46 63 02/02 0300 98.6 76 29 95/53 71 95 02/02 0230 126/49 66 02/02 0230 98.6 77 26 100/56 74 94 02/02 0200 117/47 63 02/02 0200 98.6 76 28 96/55 72 93 02/02 0130 132/50 68 02/02 0130 98.6 76 25 105/57 77 95 02/02 0100 127/49 67 02/02 0100 98.8 75 27 105/56 77 95 02/02 0030 121/46 63 02/02 0030 98.8 75 27 116/53 76 93 02/02 0012 21 02/02 0000 117/49 68 02/02 0000 98.8 74 108/58 77 96 02/01 2330 140/51 73 02/01 2330 99.0 74 27 113/59 83 95 02/01 2300 155/53 75 02/01 2300 99.0 73 26 113/56 79 96 02/01 2230 115/49 67 02/01 2230 99.0 72 25 105/58 78 94 02/01 2200 109/48 65 02/01 2200 99.0 72 28 105/54 75 94 02/01 2130 127/46 64 02/01 2130 98.6 72 29 102/56 76 94 02/01 2100 118/45 62 02/01 2100 98.2 72 26 98/52 72 94 02/01 2029 126/48 65 02/01 2029 97.5 73 100/55 73 96 02/2013 95 Nasal 3 cannula 07/09 1999 High flow 8 nasal cannula 07/09 1999 121/43 61 /1999 96.8 72 23 100/54 74 100 02/01 1930 123/46 65 02/01 1930 96.1 69 24 109/58 80 100 02/01 1900 131/50 71 02/01 1900 95.5 66 26 114/62 82 100 02/01 1830 128/43 62 02/01 1830 95.4 65 23 109/52 74 92 02/01 1801 129/47 67 02/01 1801 95.5 66 26 106/55 75 94 24 hour I O ending at 0700: 07/10 0700 02/ 1900 Intake Total 1384.00 2715.00 Output Total 2867 2732 Balance -1483.00 -17.00 Intake, IV 554.00 815.00 Intake, Oral 480 1900 Intake, 350 Packed Cells Output, CRRT 2716 2200 Ultrafiltration Output, Chest 50 210 Tube Drainage Output, Urine 101 322 PATIENT WEIGHT: Weight (lb): 185 Weight (oz): 3.01 Weight (kg): 84.000 Medications: Active Meds + DC'd Last 24 Hrs Ipratropium Kersey (ATROVENT) 500 MCG RTQ2H PRN PRN INH Cyanocobalamin (Vitamin B-12 500 mcg tab) 500 MC G DAILY PO Ferrous Sulfate (FERROUS SULFATE) 325 MG DAILY P O Bisacodyl (DULCOLAX) 10 MG ONCE PRN RECTAL Magnesium Hydroxide (MILK OF MAGNESIA) 30 ML ONC E PRN PO (DC) Insulin Human Lispro (HUMALOG) 0 AC HS SUBQ Calcium Gluconate/Sodium Chloride (Calcium Gluco hilario 1 GM/NS 50 mL) 50 ML ONCE ONE IV (DC) Calcium Gluconate/Sodium Chloride (Calcium Gluco hilario 1 GM/NS 50 mL) 50 ML ONCE ONE IV (DC) Atorvastatin Calcium (LIPITOR) 40 MG 2100 PO Clopidogrel Bisulfate (Plavix) 75 MG DAILY PO Polyethylene Glycol (MIRALAX) 17 GM DAILY PO Miscellaneous Information (PHARMACY TO DOSE/EVAL UATE) 1 EACH ASDIR MISC Calcium Chloride (CALCIUM CHLORIDE) 1 GM ASDIR P RN IV Sodium Chloride (SODIUM CHLORIDE 0.9%) 100 ML Calcium Chloride (CALCIUM CHLORIDE) 2 GM ASDIR P RN IV Sodium Chloride (SODIUM CHLORIDE 0.9%) 100 ML Magnesium Sulfate (MAGNESIUM SULFATE 4GM/SWFI 10 0ML) 100 ML ASDIR PRN IV Magnesium Sulfate (MAGNESIUM SULFATE 2GM/SWFI 50 ML) 50 ML ASDIR PRN IV Miscellaneous (PRISMASATE BGK 4/2.5 SOLUTION) 5, 000 ML ASDIR DIALYSIS Potassium Chloride (KCL 10MEQ/SWFI 50ML) 50 ML A SDIR PRN IV Sodium Chloride (SODIUM CHLORIDE 0.9%) 2,000 ML ASDIR PRN IV Sodium Phosphate (SODIUM PHOSPHATE) 25 MMOL ASDI R PRN IV Sodium Chloride (SODIUM CHLORIDE 0.9%) 250 ML Sodium Phosphate (SODIUM PHOSPHATE) 20 MMOL ASDI R PRN IV Sodium Chloride (SODIUM CHLORIDE 0.9%) 250 ML Sodium Phosphate (SODIUM PHOSPHATE) 15 MMOL ASDI R PRN IV Sodium Chloride (SODIUM CHLORIDE 0.9%) 250 ML Pantoprazole (PROTONIX) 40 MG DAILY@0600 PO Aspirin (ASPIRIN) 81 MG DAILY PO Vasopressin (VASOSTRICT 20 Unit/NS 100ML) 100 ML ASDIR IV (CKD) Amiodarone HCl (CORDARONE) 200 MG TID PO Docusate Sodium (COLACE) 100 MG BID PO Gabapentin (NEURONTIN) 200 MG BID PO Metoprolol Tartrate (LOPRESSOR) 12.5 MG Q12HR PO Mupirocin (BACTROBAN 2% 22 GM OINTMENT) 1 APPLIC BID NASAL Sennosides (Senna Lax 8.6 MG TABLET) 17.2 MG BED TIME PO Ipratropium Kersey (ATROVENT) 500 MCG RTQ4H INH Acetaminophen (TYLENOL) 650 MG Q4H PRN PRN PO Acetaminophen (TYLENOL) 650 MG Q4H PRN PRN RECTA L Albumin Human (ALBUMINAR 25%) 25 GM ASDIR PRN IV (DC) Calcium Chloride (CALCIUM CHLORIDE) 1 GM ASDIR P RN IV Dextrose/Water (DEXTROSE 10% IN WATER) 125 ML DIR PRN IV (CKD) Dextrose/Water (DEXTROSE 10% IN WATER) 250 ML DIR PRN IV (CKD) Epinephrine (ADRENALIN CHLORIDE) 4 MG ASDIR IV Dextrose/Water (DEXTROSE 5% WATER) 246 ML Glucagon (GLUCAGON) 1 MG ASDIR PRN IM Insulin Human Regular (HumuLIN R) 100 UNIT ASDIR IV (DC) Sodium Chloride (SODIUM CHLORIDE 0.9%) 99 ML Magnesium Sulfate (MAGNESIUM SULFATE 4GM/SWFI 10 0ML) 100 ML ASDIR PRN IV Magnesium Sulfate (MAGNESIUM SULFATE 2GM/SWFI 50 ML) 50 ML ASDIR PRN IV Magnesium Sulfate/Dextrose (MAGNESIUM SULFATE 1G M/D5W 100ML) 100 ML ASDIR PRN IV Nitroglycerin/Dextrose (NITROGLYCERIN 50,000MCG/ D5W 250ML) 250 ML ASDIR IV Norepinephrine Bitartrate (NOREPINEPHRINE 8 MG/N S 250 ML) 250 ML TITRATE IV Ondansetron HCl (ZOFRAN) 4 MG Q6H PRN PRN IV Oxycodone HCl (ROXICODONE) 5 MG Q4H PRN PRN PO Oxycodone HCl (ROXICODONE) 10 MG Q4H PRN PRN PO Potassium Chloride (KCL 20MEQ/SWFI 100ML) 100 ML ASDIR PRN IV Sodium Bicarbonate (SODIUM BICARBONATE) 50 MEQ A SDIR PRN IV Sodium Chloride (SODIUM CHLORIDE 0.9%) 1,000 ML .Q20H IV Sodium Chloride (SODIUM CHLORIDE 0.9%) 250 ML Q2 4H IV Albumin Human (ALBUMINAR-25%) 12.5 GM ASDIR PRN IV Heparin Sodium (Porcine) (HEPARIN SODIUM) 3,000 UNIT ASDIR PRN DIALYSIS Lidocaine HCl (LIDOCAINE HCL/PF) 0.5 ML ASDIR NV N I-DERMAL (CKD) Mannitol (Mannitol 20%) 12.5 GM ASDIR PRN IV Sodium Chloride (SODIUM CHLORIDE 0.9%) 2,000 ML ASDIR PRN IV Tamsulosin HCl (Flomax 0.4 mg) 0.4 MG BEDTIME PO Physical Exam General appearance: alert, awake, oriented Head/Eyes: atraumatic, EOMI, normal conjunctiva/ sclera, normocephalic, PERRLA ENT: moist mucosal membranes Neck: full range of motion, no bruit/NL carotids , no JVD Cardiovascular: normal heart sounds, regular rat e rhythm Respiratory: aerating well, clear to auscultatio n, symmetric expansion, no distress Abdomen: non-tender, normal bowel sounds , soft, no distention, no guarding, no rebound Extremities: moves all, no cyanosis, no edema Musculoskeletal: normal inspection 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ALTH: alert, oriented X 3, normal speech, n o motor deficits, no sensory deficits Skin: intact, normal color, no rash Psychiatry: normal affect Results Findings/Data: Laboratory Tests 07/10 07/10 07/09 07/09 1005 0323 [id number] Blood Gas Puncture Site Art Line Art Line [place] Al[place] Art L ine O2 Saturation (90 - 100 %) 96.7 91.7 93.2 ABG pH (7.35 - 7.45) 7.385 7.408 7.373 ABG pCO2 (35.0 - 45 mmHg) 46.4 H 42.4 43.6 ABG pO2 (80 - 100.0 mmHg) 89.1 62.6 L 69.7 L ABG HCO3 (22.0 - 26.0 MMOL/L) 27.8 H 26.8 H 25. 4 ABG Total CO2 29.2 28.1 26.8 ABG Base Excess (-4.0 - 4.0 MMOL/L) 2.7 2.1 0.2 ABG Hematocrit (37.5 - 50.7 %) 24 L 24 L 24 L 2 3 L ABG Hemoglobin (12.5 - 16.9 G/DL) 8.0 L 8.3 L 8 .1 L 7.8 L Marylu Test N/A VBG pH (7.33 - 7.45) 7.361 VBG pCO2 (43 - 47 mmHg) 46.8 VBG pO2 (10 - 50 mmHG) 33.2 VBG HCO3 (22 - 27 MMOL/L) 26.5 POC VBG Total CO2 27.9 VBG O2 Saturation (60 - 80 %) 61.0 VBG Base Excess (-4.0 - 4.0 MMOL/L) 1.1 Sodium (134 - 147 mmol/L) 136 139 139 140 Potassium (3.4 - 5.0 mmol/L) 4.8 4.6 4.6 4.8 Chloride (100 - 108 mmol/L) 102 104 102 105 Ionized Calcium (1.12 - 1.32 MMOL/L) 1.36 H 1.2 7 1.22 1.18 Lactic Acid (0.9 - 1.7 mmol/l) 1.3 0.7 L 0.6 L 0.8 L Temperature (F) 98.4 O2 Delivery Device Cannula [facility] 07/09 1840 Blood Gas Puncture Site R Radial O2 Saturation (90 - 100 %) 83.1 L ABG pH (7.35 - 7.45) 7.346 L ABG pCO2 (35.0 - 45 mmHg) 45.9 H ABG pO2 (80 - 100.0 mmHg) 50.5 L ABG HCO3 (22.0 - 26.0 MMOL/L) 25.1 ABG Total CO2 26.5 ABG Base Excess (-4.0 - 4.0 MMOL/L) -0.6 ABG Hematocrit (37.5 - 50.7 %) 25 L ABG Hemoglobin (12.5 - 16.9 G/DL) 8.3 L Sodium (134 - 147 mmol/L) 141 Potassium (3.4 - 5.0 mmol/L) 4.6 Chloride (100 - 108 mmol/L) 106 Ionized Calcium (1.12 - 1.32 MMOL/L) 1.16 Lactic Acid (0.9 - 1.7 mmol/l) 1.1 O2 Delivery Device Room Air Laboratory Tests 07/10 07/10 07/10 07/10 07/10 1626 1445 1156 1005 1000 Chemistry Sodium (134 - 147 mEq/L) 136 136 Potassium (3.4 - 5.0 mEq/L) 4.8 4.9 Chloride (100 - 108 mEq/L) 104 103 Carbon Dioxide (21 - 33 mEq/l) 25 26 Anion Gap (0 - 20) 12 12 BUN (7 - 18 mg/dL) 24 H 22 H Creatinine (0.6 - 1.3 mg/dL) 2.6 H 2.5 H POC Creatinine (0.8 - 1.3 mg/dL) 2.4 H Glomerular Filtr Rate (70 - 80) 24.3 L 25.5 L Glucose (70 - 110 mg/dL) 183 H 129 H POC Glucose (70 - 110 MG/DL) 126 H 146 H POC Glucose (mg/dL) (70 - 110 MG/DL) 139 H Calcium (8.0 - 10.5 mg/dL) 8.8 8.9 Ionized Calcium Tenzin (1.09 - 1.30 MMOL/L) 1.19 1.21 Phosphorus (2.5 - 4.9 MG/DL) 3.2 3.7 Magnesium (1.80 - 2.40 mg/dL) 2.39 2.28 07/10 01/07/10 0959 0559 0515 0330 0328 Chemistry Sodium (134 - 147 mEq/L) 141 Potassium (3.4 - 5.0 mEq/L) 4.8 Chloride (100 - 108 mEq/L) 107 Carbon Dioxide (21 - 33 mEq/l) 25 Anion Gap (0 - 20) 14 BUN (7 - 18 mg/dL) 18 Creatinine (0.6 - 1.3 mg/dL) 2.5 H POC Creatinine (0.8 - 1.3 mg/dL) 2.6 H Glomerular Filtr Rate (70 - 80) 25.5 L Glucose (70 - 110 mg/dL) 104 POC Glucose (70 - 110 MG/DL) 111 H 146 H 129 H POC Glucose (mg/dL) (70 - 110 MG/DL) 111 H Calcium (8.0 - 10.5 mg/dL) 9.1 Ionized Calcium Tenzin (1.09 - 1.30 MMOL/L) 1.14 Phosphorus (2.5 - 4.9 MG/DL) 3.8 Magnesium (1.80 - 2.40 mg/dL) 2.32 Total Bilirubin (0.0 - 1.0 mg/dL) 0.20 Direct Bilirubin (0.0 - 0.30 MG/DL) 0.10 Indirect Bilirubin (MG/DL) 0.10 AST (15 - 37 IUnit/L) 64 H ALT (30 - 65 IUnit/L) < 7 L Total Alk Phosphatase (20 - 125 IUnit/L) 54 Total Protein (6.4 - 8.2 g/dL) 6.1 L Albumin (3.4 - 5.0 g/dL) 3.60 07/10 07/09 07/09 07/09 07/09 0218 2349 2135 2129 2016 Chemistry Sodium (134 - 147 mEq/L) 142 Potassium (3.4 - 5.0 mEq/L) 5.0 Chloride (100 - 108 mEq/L) 109 H Carbon Dioxide (21 - 33 mEq/l) 26 Anion Gap (0 - 20) 12 BUN (7 - 18 mg/dL) 27 H Creatinine (0.6 - 1.3 mg/dL) 2.8 H POC Creatinine (0.8 - 1.3 mg/dL) 2.9 H 3.0 H Glomerular Filtr Rate (70 - 80) 22.3 L Glucose (70 - 110 mg/dL) 127 H POC Glucose (70 - 110 MG/DL) 87 104 POC Glucose (mg/dL) (70 - 110 MG/DL) 152 H 132 H Calcium (8.0 - 10.5 mg/dL) 7.9 L Ionized Calcium Tenzin (1.09 - 1.30 MMOL/L) 1.11 Phosphorus (2.5 - 4.9 MG/DL) 4.1 Magnesium (1.80 - 2.40 mg/dL) 2.25 07/09 1840 Chemistry POC Creatinine (0.8 - 1.3 mg/dL) 3.2 H POC Glucose (mg/dL) (70 - 110 MG/DL) 115 H Laboratory Tests 07/10 07/10 1445 0330 Hematology WBC (4.5 - 11.0 x10 3/uL) 24.7 H 23.5 H RBC (4.00 - 5.60 x10 6/uL) 2.45 L 2.66 L Hgb (12.5 - 16.9 g/dL) 7.5 L 8.1 L Hct (37.5 - 50.7 %) 23.6 L 25.5 L MCV (81.0 - 99.0 fL) 96.3 95.9 MCH (27.0 - 33.0 pg) 30.6 30.5 MCHC (33.0 - 37.0 g/dL) 31.8 L 31.8 L RDW (11.5 - 14.5 %) 18.0 H 18.2 H Plt Count (150 - 400 x10 3/uL) 91 L 88 L MPV (7.0 - 9.0 fL) 12.0 H 12.1 H Neut % (Auto) (56.0 - 77.0 %) 89.7 H 86.5 H Lymph % (Auto) (14.0 - 32.0 %) 3.2 L 3.6 L [place] % (Auto) (4.8 - 9.0 %) 5.4 8.3 Eos % (Auto) (0.3 - 3.7 %) 0.4 0.5 Baso % (Auto) (0.0 - 2.0 %) 0.2 0.4 Neut # (Auto) (2.0 - 7.6 x10 3/uL) 22.14 H 20.3 3 H Lymph # (Auto) (1.0 - 3.8 x10 3/uL) 0.79 L 0.84 L [place] # (Auto) (0.1 - 0.8 x10 3/uL) 1.32 H 1.95 H Eos # (Auto) (0.0 - 0.2 x10 3/uL) 0.09 0.12 Baso # (Auto) (0.0 - 0.2 x10 3/uL) 0.06 0.10 Abs Immat Gran (auto) (0.00 - 0.03 x10 3/uL) 0 .26 H 0.17 H Add Manual Diff NO NO Immature Gran % (0.0 - 2.0 %) 1.1 0.7 Nucleated RBC % (0 - 0 %) 0.0 0.0 Nucleated RBCs # (Man) (0.0 - 0.1 x10 3/uL) 0.0 0 0.00 Radiology data: Recent Impressions: RADIOLOGY - XR CHEST 1 V 07/10 4836 Report Impression - Status: SIGNED Entered: 07/10/2022 8638 IMPRESSION: 1. Small left apical pneumothorax, new from prio r studies with thoracostomy tube in place. 2. Stable pulmonary opacities likely combination of airspace disease and atelectasis. 3. Stable small pleural effusions. 4. Stable postoperative cardiomediastinal silhou ette. Impression By: Robert Ratliff M.D. Diagnosis, Assessment Plan Consultants: cardiology, cardiovascular surgery, nephrology Free Text DxA P Notes Free text DxA P notes: Assessment and plans: CAD (coronary artery disease) patient presented with NSTEMI and found to hve severe CAD. Cardiac cath shows: Left Main - Distal 70% LAD - Proximal 80% with another 60% and 70% les sions Cir - Proximal 80%,mid 80-90%, Distal 70% and O M 60% RCA - large dominant with proximal 40%, Mid 60% . Cardiology and CV surgeon consulted echo: ef 30-34%, mod hypokinesis of entire myoc ardium, grade 1 diastolic dysfunction Carotid Dopplers negative PFTs PT/OT s/p CABG X5 on 07/08 Patient on ASA, plavix, BB and Statin on amiodarone Beta-tomas as tolerated for low BP, o n epinephrine, now off vasopressin 2/2 Acute systolic heart failure Echocardiac with estimated LVEF of 30 to 34% wi grade 1 diastolic dysfunction -s/p Lasix 20 mg twice daily 07/05 -on metoprolol 12.5 mg bid on hold now, BP low -no ACEI/ spironolactione for CLAUDETTE -Strict I's and O's, daily weights -Start GDMT prior to discharge CLAUDETTE (acute kidney injury) No prior Hx of renal disease. hx of BPH and casimiro ated with Fosamax w/o improvement nd continue to h ave difficulty urinating. On admission was found to be on acute renal filaure and had received HD t wice prior to arrival here ( thursday and thursday). Creatinine this am was 7.4, BUN 68 * Probably due to obstructive uropathy * waters already in place * Nephrology consuled for HD On daily hemodialysis as per nephrology CRRT as per nephrology / Anemia: -Hemoglobin dropped to 6.5 s/p CABG 2 PRBC BT ordered 07/09 Monitor H H HTN (hypertension) patient on metoprolol 12.5 mg BID, will adjust as needed On labetalol/hydralazine as needed Dyslipidemia on Lipitor 40mg po daliy. BPH (benign prostatic hyperplasia) Started on Flomax at the previous hospital, thais l continue with it. Waters catheter in place, continue Waters cathete r as per nephrology 07/05 Goiter Hx of Goiter and surgical resection. TSH 3.33, within normal limits. Patient is not on Thyroid medication. anemia of chronic kidney disease Hemoglobin 9.5, monitor Hypokalemia resolved UTI continue Rocephin for empiric treatment pend ing results of urine culture No growth for 48 hours DVT prophylaxis: Heparin 5000 units every 8 hour s Diet: Cardiac diet CODE STATUS: Full code Disposition: Status post CABG x5 on 07/09, 1 chest tube out, 1 chest tube in, on epinephrine, on CRRT, on 2 L oxygen via nasal ca nnula. PT/OT on board. Continue CVICU care. Quality: Gen Med Crit Care VTE Prophylaxis VTE prophylaxis initiated: yes Current Medications Current medication review: I attest that the foregoing medication list in [facility] medical record is true, accurate, and complete to the best of my knowled ge. Advanced Care Plan 65 or Older Discussed with: patient Discussion included: living will (none), power of employment law attorney (none), code status ( full code) Electronically Signed by Radha Ward MD on 3 at 1749 RPT #:[id number] END OF REPORT 2022-07-10 10:05:00-00:00 [facility]ACL [facility]) Nephrology Progress Note REPORT#:[id number] REPORT STATUS: Signed DATE:07/10/22 TIME: 1005 PATIENT: SHERRI ARCE UNIT #: [id number] ROOM/BED: [place] [address] : 42 AGE: 81 SEX: M ATTEND: Radha Ward ADM AUTHOR: Evelina Plaza MD * ALL edits or amendments must be made on the el ectronic/computer document * Subjective Chief complaint: has no SOB. On CRRT without issues.. Objective General VS/I O: Vital Signs: Date Time Temp Pulse Resp B/P B/P Pulse O2 O2 F low FiO2 Mean Ox Delivery Rate 02/03 0800 Nasal 5 cannula 02/03 0746 94 Nasal 5 cannula 02/03 0556 99.3 87 30 128/44 62 95 02/03 0530 99.3 88 121/41 59 93 02/03 0500 99.5 92 120/46 63 93 02/03 0430 99.7 88 28 127/45 63 90 02/03 0400 121/44 62 02/03 0400 99.7 91 27 97/54 68 90 02/03 0330 135/47 66 02/03 0330 99.5 87 27 106/59 78 93 02/03 0300 136/46 65 02/03 0300 99.5 87 25 103/59 77 93 02/03 0230 126/44 62 02/03 0230 99.5 86 26 100/57 75 92 02/03 0200 128/45 63 02/03 0200 99.5 85 26 100/57 74 92 02/03 0130 133/44 63 02/03 0130 99.5 84 25 100/56 74 92 02/03 0115 99.5 84 24 137/45 64 92 02/03 0100 140/45 65 02/03 0100 99.3 84 25 105/55 76 93 02/03 0030 131/44 63 02/03 0030 99.3 82 25 102/55 75 93 02/03 0000 99.3 82 28 104/56 77 91 02/02 2300 125/42 60 02/02 2300 99.5 85 25 104/54 74 90 02/02 2230 136/43 64 02/02 2230 99.3 91 25 109/55 78 91 02/02 2200 141/46 66 02/02 2200 99.9 83 28 122/58 84 93 02/02 2130 100.4 83 28 146/68 98 89 02/02 2100 138/50 70 02/02 2100 100.2 71 29 111/56 77 93 02/02 2030 145/48 68 02/02 2030 100.0 72 29 111/57 79 93 02/02 1999 High flow 2 nasal cannula 02/1999 115/36 52 02/02 1999 99.9 76 27 86/47 61 93 02/02 1941 95 Nasal 3 cannula 02/02 1930 108/36 51 02/02 1930 100.0 77 79/45 57 92 02/02 1900 100.0 75 25 77/46 57 93 02/02 1845 100.0 76 26 99/34 49 93 02/02 1830 120/40 56 02/02 1830 100.0 78 27 86/48 62 94 02/02 1815 100.0 77 29 113/37 53 94 02/02 1800 100.0 76 31 77/43 55 94 02/02 1745 100.0 77 29 88/32 46 95 02/02 1730 74 31 72/38 51 94 02/02 1715 75 43 58/15 31 89 02/02 1700 74 28 75/37 47 95 02/02 1645 82 33 78/28 44 91 02/02 1630 80 32 81/49 60 95 02/02 1615 81 43 106/29 47 96 02/02 1600 83 45 83/49 62 97 24 hour I O ending at 0700: 02 0700 07/10 1900 Intake Total 1017.00 1283.00 Output Total 240 1027 Balance 777.00 256.00 Intake, IV 427.00 383.00 Intake, Oral 240 560 Intake, Oral 240 Supplement Intake, Other 100 Intake, 350 Packed Cells Number Voids Output, CRRT 489 Ultrafiltration Output, Chest 200 395 Tube Drainage Output, Urine 40 143 Patient 92 kg Weight Weight Bed scale Measurement Method PATIENT WEIGHT: Weight (lb): 202 Weight (oz): 13.2 Weight (kg): 92.000 Medications Active Meds + DC'd Last 24 Hrs Ipratropium Kersey (ATROVENT) 500 MCG RTQ2H PRN PRN INH Albumin Human (ALBUMINAR 5% 12.5GM/250ML) 250 ML ONCE ONE IV (UNV) Furosemide (LASIX 40 mg/4 mL INJECTION) 80 MG ON CE ONE IV Midodrine (PROAMATINE) 2.5 MG 0900,1300,1700 PO Furosemide (LASIX 40 mg/4 mL INJECTION) 60 MG ON CE ONE IV (DC) Lactulose (LACTULOSE) 20 GM DAILY PRN PRN PO Cyanocobalamin (Vitamin B-12 500 mcg tab) 500 MC G DAILY PO Ferrous Sulfate (FERROUS SULFATE) 325 MG DAILY P O Calcium Gluconate/Sodium Chloride (Calcium Gluco hilario 1 GM/NS 50 mL) 50 ML ONCE ONE IV (DC) Dopamine HCl/Dextrose (DOPamine 400MG/D5W 250ML) 250 ML ASDIR IV Bisacodyl (DULCOLAX) 10 MG ONCE PRN RECTAL Insulin Human Lispro (HUMALOG) 0 AC HS SUBQ (DC) Atorvastatin Calcium (LIPITOR) 40 MG 2100 PO Clopidogrel Bisulfate (Plavix) 75 MG DAILY PO Polyethylene Glycol (MIRALAX) 17 GM DAILY PO Miscellaneous Information (PHARMACY TO DOSE/EVAL UATE) 1 EACH ASDIR MISC Calcium Chloride (CALCIUM CHLORIDE) 1 GM ASDIR PRN IV Sodium Chloride (SODIUM CHLORIDE 0.9%) 100 ML Calcium Chloride (CALCIUM CHLORIDE) 2 GM ASDIR P RN IV Sodium Chloride (SODIUM CHLORIDE 0.9%) 100 ML Magnesium Sulfate (MAGNESIUM SULFATE 4GM/SWFI 10 0ML) 100 ML ASDIR PRN IV Magnesium Sulfate (MAGNESIUM SULFATE 2GM/SWFI 50 ML) 50 ML ASDIR PRN IV Miscellaneous (PRISMASATE BGK 4/2.5 SOLUTION) 5, 000 ML ASDIR DIALYSIS Potassium Chloride (KCL 10MEQ/SWFI 50ML) 50 ML A SDIR PRN IV Sodium Chloride (SODIUM CHLORIDE 0.9%) 2,000 ML ASDIR PRN IV Sodium Phosphate (SODIUM PHOSPHATE) 25 MMOL ASDI R PRN IV Sodium Chloride (SODIUM CHLORIDE 0.9%) 250 ML Sodium Phosphate (SODIUM PHOSPHATE) 20 MMOL ASDI R PRN IV Sodium Chloride (SODIUM CHLORIDE 0.9%) 250 ML Sodium Phosphate (SODIUM PHOSPHATE) 15 MMOL ASDI R PRN IV Sodium Chloride (SODIUM CHLORIDE 0.9%) 250 ML Pantoprazole (PROTONIX) 40 MG DAILY@0600 PO Aspirin (ASPIRIN) 81 MG DAILY PO Vasopressin (VASOSTRICT 20 Unit/NS 100ML) 100 ML ASDIR IV (CKD) Amiodarone HCl (CORDARONE) 200 MG TID PO Docusate Sodium (COLACE) 100 MG BID PO Gabapentin (NEURONTIN) 200 MG BID PO Metoprolol Tartrate (LOPRESSOR) 12.5 MG Q12HR PO Mupirocin (BACTROBAN 2% 22 GM OINTMENT) 1 APPLIC BID NASAL Sennosides (Senna Lax 8.6 MG TABLET) 17.2 MG BED TIME PO Ipratropium Kersey (ATROVENT) 500 MCG RTQ4H INH Acetaminophen (TYLENOL) 650 MG Q4H PRN PRN PO Acetaminophen (TYLENOL) 650 MG Q4H PRN PRN RECTA L Calcium Chloride (CALCIUM CHLORIDE) 1 GM ASDIR P RN IV Dextrose/Water (DEXTROSE 10% IN WATER) 125 ML DIR PRN IV (CKD) Dextrose/Water (DEXTROSE 10% IN WATER) 250 ML DIR PRN IV (CKD) Epinephrine (ADRENALIN CHLORIDE) 4 MG ASDIR IV Dextrose/Water (DEXTROSE 5% WATER) 246 ML Glucagon (GLUCAGON) 1 MG ASDIR PRN IM Magnesium Sulfate (MAGNESIUM SULFATE 4GM/SWFI 10 0ML) 100 ML ASDIR PRN IV Magnesium Sulfate (MAGNESIUM SULFATE 2GM/SWFI 50 ML) 50 ML ASDIR PRN IV Magnesium Sulfate/Dextrose (MAGNESIUM SULFATE 1G M/D5W 100ML) 100 ML ASDIR PRN IV Nitroglycerin/Dextrose (NITROGLYCERIN 50,000MCG/ D5W 250ML) 250 ML ASDIR IV Norepinephrine Bitartrate (NOREPINEPHRINE 8 MG/N S 250 ML) 250 ML TITRATE IV Ondansetron HCl (ZOFRAN) 4 MG Q6H PRN PRN IV Oxycodone HCl (ROXICODONE) 5 MG Q4H PRN PRN PO Oxycodone HCl (ROXICODONE) 10 MG Q4H PRN PRN PO Potassium Chloride (KCL 20MEQ/SWFI 100ML) 100 ML ASDIR PRN IV Sodium Bicarbonate (SODIUM BICARBONATE) 50 MEQ A SDIR PRN IV Sodium Chloride (SODIUM CHLORIDE 0.9%) 1,000 ML .Q20H IV Sodium Chloride (SODIUM CHLORIDE 0.9%) 250 ML Q2 4H IV Albumin Human (ALBUMINAR-25%) 12.5 GM ASDIR PRN IV Heparin Sodium (Porcine) (HEPARIN SODIUM) 3,000 UNIT ASDIR PRN DIALYSIS Lidocaine HCl (LIDOCAINE HCL/PF) 0.5 ML ASDIR NV N I-DERMAL (CKD) Mannitol (Mannitol 20%) 12.5 GM ASDIR PRN IV Sodium Chloride (SODIUM CHLORIDE 0.9%) 2,000 ML ASDIR PRN IV Tamsulosin HCl (Flomax 0.4 mg) 0.4 MG BEDTIME PO Physical Exam General appearance: alert, awake Head/eyes: atraumatic, normocephalic ENT: moist mucous membranes, normal nose Neck: non-tender, no JVD Extremities: no edema, no swelling 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ALTH: alert, oriented X 3, normal speech Skin: dry, intact Results Findings/Data: Laboratory Tests 07/11 07/11 07/11 07/11 1907 1236 0430 0226 Blood Gas Puncture Site Art Line Art Line [place] Ally Art L ine O2 Saturation (90 - 100 %) 95.2 93.9 91.8 ABG pH (7.35 - 7.45) 7.347 L 7.381 7.375 ABG pCO2 (35.0 - 45 mmHg) 37.9 36.5 40.6 ABG pO2 (80 - 100.0 mmHg) 80.5 71.5 L 64.8 L ABG HCO3 (22.0 - 26.0 MMOL/L) 20.8 L 21.7 L 23 .8 ABG Total CO2 22.0 22.8 25.0 ABG Base Excess (-4.0 - 4.0 MMOL/L) -4.8 L -3.4 -1.4 ABG Hematocrit (37.5 - 50.7 %) 27 L 27 L 31 L 2 7 L ABG Hemoglobin (12.5 - 16.9 G/DL) 9.3 L 9.2 L 1 0.5 L 9.3 L Marylu Test N/A N/A VBG pH (7.33 - 7.45) 7.369 VBG pCO2 (43 - 47 mmHg) 42.1 L VBG pO2 (10 - 50 mmHG) 30.2 VBG HCO3 (22 - 27 MMOL/L) 24.3 POC VBG Total CO2 25.6 VBG O2 Saturation (60 - 80 %) 55.6 L VBG Base Excess (-4.0 - 4.0 MMOL/L) -1.0 Sodium (134 - 147 mmol/L) 131 L 133 L 135 135 Potassium (3.4 - 5.0 mmol/L) 5.5 H 4.9 4.7 4.7 Chloride (100 - 108 mmol/L) 102 103 105 101 Ionized Calcium (1.12 - 1.32 MMOL/L) 1.24 1.25 1.26 1.26 Lactic Acid (0.9 - 1.7 mmol/l) 1.1 0.5 L 0.4 L 0.5 L Temperature (F) 98.6 98.8 O2 Delivery Device Cannula Cannula HFNC HFNC Laboratory Tests 07/11 07/11 07/11 07/11 07/11 1551 1545 0948 [id number] 0430 Chemistry POC Creatinine (0.8 - 1.3 mg/dL) 3.8 H 3.6 H 3 .6 H POC Glucose (70 - 110 MG/DL) 117 H POC Glucose (mg/dL) (70 - 110 MG/DL) 159 H 122 H 102 Ionized Calcium Tenz[place] (1.09 - 1.30 MMOL/L) 1.17 07/11 Chemistry Sodium (134 - 147 mEq/L) 136 137 Potassium (3.4 - 5.0 mEq/L) 4.8 4.7 Chloride (100 - 108 mEq/L) 103 105 Carbon Dioxide (21 - 33 mEq/l) 24 23 Anion Gap (0 - 20) 14 14 BUN (7 - 18 mg/dL) 32 H 26 H Creatinine (0.6 - 1.3 mg/dL) 3.2 H 2.9 H POC Creatinine (0.8 - 1.3 mg/dL) 3.3 H Glomerular Filtr Rate (70 - 80) 19.0 L 21.3 L Glucose (70 - 110 mg/dL) 103 141 H POC Glucose (70 - 110 MG/DL) 126 H POC Glucose (mg/dL) (70 - 110 MG/DL) 109 Calcium (8.0 - 10.5 mg/dL) 9.0 8.6 Ionized Calcium Tenzin (1.09 - 1.30 1.14 MMOL/L) Magnesium (1.80 - 2.40 mg/dL) 2.89 H 2.63 H Total Bilirubin (0.0 - 1.0 mg/dL) 0.40 Direct Bilirubin (0.0 - 0.30 MG/DL) 0.20 Indirect Bilirubin (MG/DL) 0.20 AST (15 - 37 IUnit/L) 36 ALT (30 - 65 IUnit/L) < 7 L Total Alk Phosphatase (20 - 125 IUnit/L) 105 Total Protein (6.4 - 8.2 g/dL) 6.1 L Albumin (3.4 - 5.0 g/dL) 3.30 L Laboratory Tests 07/11 228 Hematology WBC (4.5 - 11.0 x10 3/uL) 22.2 H RBC (4.00 - 5.60 x10 6/uL) 2.91 L Hgb (12.5 - 16.9 g/dL) 8.6 L Hct (37.5 - 50.7 %) 27.7 L MCV (81.0 - 99.0 fL) 95.2 MCH (27.0 - 33.0 pg) 29.6 MCHC (33.0 - 37.0 g/dL) 31.0 L RDW (11.5 - 14.5 %) 18.1 H Plt Count (150 - 400 x10 3/uL) 100 L MPV (7.0 - 9.0 fL) 11.8 H Neut % (Auto) (56.0 - 77.0 %) 86.3 H Lymph % (Auto) (14.0 - 32.0 %) 4.2 L [place] % (Auto) (4.8 - 9.0 %) 7.5 Eos % (Auto) (0.3 - 3.7 %) 0.8 Baso % (Auto) (0.0 - 2.0 %) 0.3 Neut # (Auto) (2.0 - 7.6 x10 3/uL) 19.22 H Lymph # (Auto) (1.0 - 3.8 x10 3/uL) 0.93 L [place] # (Auto) (0.1 - 0.8 x10 3/uL) 1.66 H Eos # (Auto) (0.0 - 0.2 x10 3/uL) 0.17 Baso # (Auto) (0.0 - 0.2 x10 3/uL) 0.06 Abs Immat Gran (auto) (0.00 - 0.03 x10 3/uL) 0. 19 H Add Manual Diff NO Immature Gran % (0.0 - 2.0 %) 0.9 Nucleated RBC % (0 - 0 %) 0.0 Nucleated RBCs # (Man) (0.0 - 0.1 x10 3/uL) 0.0 0 Immature Plt Fraction (0.9 - 11.2 %) 6.5 Radiology data: Recent Impressions: RADIOLOGY - XR CHEST 1 V 07/11 1216 Report Impression - Status: SIGNED Entered: 07/11/2022 1066 IMPRESSION: 1. Moderate enlarged cardiac silhouette. 2. Small bilateral pleural effusions. 3. Moderate to severe pulmonary edema versus inf iltrates, pneumonia. Progression of opacities within right lower chest. 4. Degenerative and postsurgical changes are dem onstrated, as described above. Impression By: [email or web address] - Manuel Vega M.D. Diagnosis, Assessment Plan Free Text A P: Assessment: 1-CLAUDETTE likely from urinary retention. oliguric AK I now post op, from shock! 2- non-STEMI: multivessel disease w main left. 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 Waters catheter is in place. 4-severe bilateral hydronephrosis 5- shock : Hypotension 6-hyperlipidemia 7- Lactic acidosis Plan: - unknown Scr baseline. - He underwent LHC on 07/03. Started on HD withou t UF on 07/04 for clearance - Ultrasound showed severe bilateral hydronephro sis. Continue Waters catheter. - Urology consulted. - s/p CABG X5 on 07/08 - hemodynamic support, titrate vasopressors for MAP>65. - on dopamine to improve catherine al perfusion but still anuric. recommend to increase dopamine dose to vasoconstrictive dose. Will give albumin + diuretic challenge dose. - no emergent need for HD. - continue Waters catheter and strict intake and output Discussed with patient and cardiothoracic surger y team Consultants: cardiology, cardiovascular surgery, nephrology Electronically Signed by Evelina Plaza MD on 08/28 at 1603 RPT #:[id number] END OF REPORT 2022-07-10 09:21:00-00:00 [facility] Critical Care Progress Note REPORT#:[id number] REPORT STATUS: Signed DATE:07/10/22 TIME: 920 PATIENT: SHERRI ARCE UNIT #: [id number] ROOM/BED: [place] [address] : 42 AGE: 81 SEX: M ATTEND: Radha Ward ADM AUTHOR: Edwardo Flannery MD * ALL edits or amendments must be made on the el [employer]/computer document * Subjective Chief complaint: CABG HPI: This is 81 years old male with medical history s ignificant for HTN and dyslipidemia [facility] with chest pain and found to have a NSTEMI and also acute r enal failure. He underwent cardiac cath and was found to have sever e CAD including left main disease with EF of 30 to 35% and ischemic cardiomyopathy. Transfer here for CABG evaluation. CV surgery were consulted an d the patient earlier today underwent CABG x 5 (MISTRY -LAD, SVG-Ladonna, SVG-OM1< SVG-OM3, SVG-PDA) and AL AA. His intraoperative course was without significant occurrence. The patient was brought to CVICU intubated and ventilated on milrinone drip, norepinephrine drip, epinephrine drip and vasopressin drip. His initial ABG showed metabolic acidosi s and he received 2 A of sodium bicarb and 1 g of calcium. The patient started to wake up later in the even ing but he looked weak, so he was reversed with neostigmine and glycopyrrolate . His motor strength improved significantly after that and his spontaneous lenard athing trial was good on the following ABG showed some metabolic acid osis. The patient will be extubated to a BiPAP as his CO2 was high on the ABG. Comments: remains in bed started CRRT, 1.5L negative Making urine, 10-30/hr on epinephrine drip at 2 amanda CI 3, SvO2 56% given PRBC x2 yesterday Tolerating PO, passing gas on insulin gtt Objective General VS/I O Last Documented: Result Date Time B/P 135/46 07/10 06 B/P Mean 65 07/10 06 Pulse Ox 95 07/10 06 Temp 98.6 07/10 06 Pulse 80 07/10 0600 Resp 24 07/10 0600 O2 Delivery Nasal cannula 07/09 2013 O2 Flow Rate 3 07/09 2013 FiO2 50 07/08 191 24 hour I O ending at 0700: 07/10 0700 07/09 1900 Intake Total 1384.00 2715.00 Output Total 2867 2732 Balance -1483.00 -17.00 Intake, IV 554.00 815.00 Intake, Oral 480 1900 Intake, 350 Packed Cells Output, CRRT 2716 2200 Ultrafiltration Output, Chest 50 210 Tube Drainage Output, Urine 101 322 PATIENT WEIGHT: Weight (lb): 185 Weight (oz): 3.01 Weight (kg): 84.000 Medications: Active Meds + DC'd Last 24 Hrs Ipratropium Kersey (ATROVENT) 500 MCG RTQ2H PRN PRN INH Cyanocobalamin (Vitamin B-12 500 mcg tab) 500 MC G DAILY PO Ferrous Sulfate (FERROUS SULFATE) 325 MG DAILY P O Bisacodyl (DULCOLAX) 10 MG ONCE PRN RECTAL Magnesium Hydroxide (MILK OF MAGNESIA) 30 ML ONC E PRN PO Insulin Human Lispro (HUMALOG) 0 AC HS SUBQ Calcium Gluconate/Sodium Chloride (Calcium Gluco hilario 1 GM/NS 50 mL) 50 ML ONCE ONE IV (DC) Calcium Gluconate/Sodium Chloride (Calcium Gluco hilario 1 GM/NS 50 mL) 50 ML ONCE ONE IV (DC) Atorvastatin Calcium (LIPITOR) 40 MG 2100 PO Calcium Gluconate/Sodium Chloride (Calcium Gluco hilario 1 GM/NS 50 mL) 50 ML ONCE ONE IV (DC) Clopidogrel Bisulfate (Plavix) 75 MG DAILY PO Polyethylene Glycol (MIRALAX) 17 GM DAILY PO Miscellaneous Information (PHARMACY TO DOSE/EVAL UATE) 1 EACH ASDIR MISC Calcium Chloride (CALCIUM CHLORIDE) 1 GM ASDIR P RN IV Sodium Chloride (SODIUM CHLORIDE 0.9%) 100 ML Calcium Chloride (CALCIUM CHLORIDE) 2 GM ASDIR P RN IV Sodium Chloride (SODIUM CHLORIDE 0.9%) 100 ML Magnesium Sulfate (MAGNESIUM SULFATE 4GM/SWFI 10 0ML) 100 ML ASDIR PRN IV Magnesium Sulfate (MAGNESIUM SULFATE 2GM/SWFI 50 ML) 50 ML ASDIR PRN IV Miscellaneous (PRISMASATE BGK 4/2.5 SOLUTION) 5, 000 ML ASDIR DIALYSIS Potassium Chloride (KCL 10MEQ/SWFI 50ML) 50 ML A SDIR PRN IV Sodium Chloride (SODIUM CHLORIDE 0.9%) 2,000 ML ASDIR PRN IV Sodium Phosphate (SODIUM PHOSPHATE) 25 MMOL ASDI R PRN IV Sodium Chloride (SODIUM CHLORIDE 0.9%) 250 ML Sodium Phosphate (SODIUM PHOSPHATE) 20 MMOL ASDI R PRN IV Sodium Chloride (SODIUM CHLORIDE 0.9%) 250 ML Sodium Phosphate (SODIUM PHOSPHATE) 15 MMOL ASDI R PRN IV Sodium Chloride (SODIUM CHLORIDE 0.9%) 250 ML Pantoprazole (PROTONIX) 40 MG DAILY@0600 PO Aspirin (ASPIRIN) 81 MG DAILY PO Vasopressin (VASOSTRICT 20 Unit/NS 100ML) 100 ML ASDIR IV (CKD) Amiodarone HCl (CORDARONE) 200 MG TID PO Docusate Sodium (COLACE) 100 MG BID PO Gabapentin (NEURONTIN) 200 MG BID PO Metoprolol Tartrate (LOPRESSOR) 12.5 MG Q12HR PO Mupirocin (BACTROBAN 2% 22 GM OINTMENT) 1 APPLIC BID NASAL Sennosides (Senna Lax 8.6 MG TABLET) 17.2 MG BED TIME PO Cefazolin Sodium (KEFZOL OR ANCEF) 6 GM ONCE ONE IV (DC) Sodium Chloride (SODIUM CHLORIDE 0.9%) 500 ML Ipratropium Kersey (ATROVENT) 500 MCG RTQ4H INH Acetaminophen (TYLENOL) 650 MG Q4H PRN PRN PO Acetaminophen (TYLENOL) 650 MG Q4H PRN PRN RECTA L Albumin Human (ALBUMINAR 25%) 25 GM ASDIR PRN IV (DC) Calcium Chloride (CALCIUM CHLORIDE) 1 GM ASDIR P RN IV Dextrose/Water (DEXTROSE 10% IN WATER) 125 ML DIR PRN IV (CKD) Dextrose/Water (DEXTROSE 10% IN WATER) 250 ML DIR PRN IV (CKD) Epinephrine (ADRENALIN CHLORIDE) 4 MG ASDIR IV Dextrose/Water (DEXTROSE 5% WATER) 246 ML Glucagon (GLUCAGON) 1 MG ASDIR PRN IM Insulin Human Regular (HumuLIN R) 100 UNIT ASDIR IV (DC) Sodium Chloride (SODIUM CHLORIDE 0.9%) 99 ML Magnesium Sulfate (MAGNESIUM SULFATE 4GM/SWFI 10 0ML) 100 ML ASDIR PRN IV Magnesium Sulfate (MAGNESIUM SULFATE 2GM/SWFI 50 ML) 50 ML ASDIR PRN IV Magnesium Sulfate/Dextrose (MAGNESIUM SULFATE 1G M/D5W 100ML) 100 ML ASDIR PRN IV Nitroglycerin/Dextrose (NITROGLYCERIN 50,000MCG/ D5W 250ML) 250 ML ASDIR IV Norepinephrine Bitartrate (NOREPINEPHRINE 8 MG/N S 250 ML) 250 ML TITRATE IV Ondansetron HCl (ZOFRAN) 4 MG Q6H PRN PRN IV Oxycodone HCl (ROXICODONE) 5 MG Q4H PRN PRN PO Oxycodone HCl (ROXICODONE) 10 MG Q4H PRN PRN PO Potassium Chloride (KCL 20MEQ/SWFI 100ML) 100 ML ASDIR PRN IV Sodium Bicarbonate (SODIUM BICARBONATE) 50 MEQ A SDIR PRN IV Sodium Chloride (SODIUM CHLORIDE 0.9%) 1,000 ML .Q20H IV Sodium Chloride (SODIUM CHLORIDE 0.9%) 250 ML Q2 4H IV Albumin Human (ALBUMINAR-25%) 12.5 GM ASDIR PRN IV Heparin Sodium (Porcine) (HEPARIN SODIUM) 3,000 UNIT ASDIR PRN DIALYSIS Lidocaine HCl (LIDOCAINE HCL/PF) 0.5 ML ASDIR NV N I-DERMAL (CKD) Mannitol (Mannitol 20%) 12.5 GM ASDIR PRN IV Sodium Chloride (SODIUM CHLORIDE 0.9%) 2,000 ML ASDIR PRN IV Tamsulosin HCl (Flomax 0.4 mg) 0.4 MG BEDTIME PO Results Findings/data: Laboratory Tests 07/10 07/09 07/09 07/09 0328 2348 2134 1840 Blood Gas Puncture Site Art Line [place] Art Line R Rad ial O2 Saturation (90 - 100 %) 91.7 93.2 83.1 L ABG pH (7.35 - 7.45) 7.408 7.373 7.346 L ABG pCO2 (35.0 - 45 mmHg) 42.4 43.6 45.9 H ABG pO2 (80 - 100.0 mmHg) 62.6 L 69.7 L 50.5 L ABG HCO3 (22.0 - 26.0 MMOL/L) 26.8 H 25.4 25.1 ABG Total CO2 28.1 26.8 26.5 ABG Base Excess (-4.0 - 4.0 MMOL/L) 2.1 0.2 -0. 6 ABG Hematocrit (37.5 - 50.7 %) 24 L 24 L 23 L 2 5 L ABG Hemoglobin (12.5 - 16.9 G/DL) 8.3 L 8.1 L 7 .8 L 8.3 L VBG pH (7.33 - 7.45) 7.361 VBG pCO2 (43 - 47 mmHg) 46.8 VBG pO2 (10 - 50 mmHG) 33.2 VBG HCO3 (22 - 27 MMOL/L) 26.5 POC VBG Total CO2 27.9 VBG O2 Saturation (60 - 80 %) 61.0 VBG Base Excess (-4.0 - 4.0 MMOL/L) 1.1 Sodium (134 - 147 mmol/L) 139 139 140 141 Potassium (3.4 - 5.0 mmol/L) 4.6 4.6 4.8 4.6 Chloride (100 - 108 mmol/L) 104 102 105 106 Ionized Calcium (1.12 - 1.32 MMOL/L) 1.27 1.22 1.18 1.16 Lactic Acid (0.9 - 1.7 mmol/l) 0.7 L 0.6 L 0.8 L 1.1 O2 Delivery Device HFNC HFNC HFNC Room Air 07/09 1018 Blood Gas Puncture Site Art Line O2 Saturation (90 - 100 %) 93.8 ABG pH (7.35 - 7.45) 7.351 ABG pCO2 (35.0 - 45 mmHg) 45.1 H ABG pO2 (80 - 100.0 mmHg) 73.8 L ABG HCO3 (22.0 - 26.0 MMOL/L) 25.0 ABG Total CO2 26.3 ABG Base Excess (-4.0 - 4.0 MMOL/L) -0.6 ABG Hematocrit (37.5 - 50.7 %) 21 L ABG Hemoglobin (12.5 - 16.9 G/DL) 7.3 L Sodium (134 - 147 mmol/L) 144 Potassium (3.4 - 5.0 mmol/L) 5.0 Chloride (100 - 108 mmol/L) 109 H Ionized Calcium (1.12 - 1.32 MMOL/L) 1.16 Lactic Acid (0.9 - 1.7 mmol/l) 2.0 H O2 Delivery Device Cannula Laboratory Tests 07/10 07/10 07/10 07/10 07/10 0559 0515 0330 0328 0218 Chemistry Sodium (134 - 147 mEq/L) 141 Potassium (3.4 - 5.0 mEq/L) 4.8 Chloride (100 - 108 mEq/L) 107 Carbon Dioxide (21 - 33 mEq/l) 25 Anion Gap (0 - 20) 14 BUN (7 - 18 mg/dL) 18 Creatinine (0.6 - 1.3 mg/dL) 2.5 H POC Creatinine (0.8 - 1.3 mg/dL) 2.6 H Glomerular Filtr Rate (70 - 80) 25.5 L Glucose (70 - 110 mg/dL) 104 POC Glucose (70 - 110 MG/DL) 146 H 129 H 87 POC Glucose (mg/dL) (70 - 110 MG/DL) 111 H Calcium (8.0 - 10.5 mg/dL) 9.1 Ionized Calcium Tenzin (1.09 - 1.30 MMOL/L) 1.14 Phosphorus (2.5 - 4.9 MG/DL) 3.8 Magnesium (1.80 - 2.40 mg/dL) 2.32 Total Bilirubin (0.0 - 1.0 mg/dL) 0.20 Direct Bilirubin (0.0 - 0.30 MG/DL) 0.10 Indirect Bilirubin (MG/DL) 0.10 AST (15 - 37 IUnit/L) 64 H ALT (30 - 65 IUnit/L) < 7 L Total Alk Phosphatase (20 - 125 IUnit/L) 54 Total Protein (6.4 - 8.2 g/dL) 6.1 L Albumin (3.4 - 5.0 g/dL) 3.60 07/09 07/09 07/09 07/09 07/09 2349 2135 2129 2016 1839 Chemistry Sodium (134 - 147 mEq/L) 142 Potassium (3.4 - 5.0 mEq/L) 5.0 Chloride (100 - 108 mEq/L) 109 H Carbon Dioxide (21 - 33 mEq/l) 26 Anion Gap (0 - 20) 12 BUN (7 - 18 mg/dL) 27 H Creatinine (0.6 - 1.3 mg/dL) 2.8 H POC Creatinine (0.8 - 1.3 mg/dL) 2.9 H 3.0 H 3 .2 H Glomerular Filtr Rate (70 - 80) 22.3 L Glucose (70 - 110 mg/dL) 127 H POC Glucose (70 - 110 MG/DL) 104 POC Glucose (mg/dL) (70 - 110 MG/DL) 152 H 132 H 115 H Calcium (8.0 - 10.5 mg/dL) 7.9 L Ionized Calcium Tenzin (1.09 - 1.30 MMOL/L) 1.11 Phosphorus (2.5 - 4.9 MG/DL) 4.1 Magnesium (1.80 - 2.40 mg/dL) 2.25 07/09 07/09 07/09 07/09 1600 1245 1235 1018 Chemistry Sodium (134 - 147 mEq/L) 143 145 Potassium (3.4 - 5.0 mEq/L) 4.8 5.3 H Chloride (100 - 108 mEq/L) 109 H 111 H Carbon Dioxide (21 - 33 mEq/l) 26 24 Anion Gap (0 - 20) 13 15 BUN (7 - 18 mg/dL) 29 H 36 H Creatinine (0.6 - 1.3 mg/dL) 3.2 H 3.9 H POC Creatinine (0.8 - 1.3 mg/dL) 3.8 H Glomerular Filtr Rate (70 - 80) 19.0 L 15.0 L Glucose (70 - 110 mg/dL) 138 H 178 H POC Glucose (70 - 110 MG/DL) 162 H POC Glucose (mg/dL) (70 - 110 MG/DL) 145 H Calcium (8.0 - 10.5 mg/dL) 8.7 7.8 L Ionized Calcium Tenzin (1.09 - 1.30 MMOL/L) 1.16 1.08 L Phosphorus (2.5 - 4.9 MG/DL) 4.3 Magnesium (1.80 - 2.40 mg/dL) 2.28 2.37 Laboratory Tests 07/10 02/ 0330 1600 Hematology WBC (4.5 - 11.0 x10 3/uL) 23.5 H 20.9 H RBC (4.00 - 5.60 x10 6/uL) 2.66 L 2.60 L Hgb (12.5 - 16.9 g/dL) 8.1 L 7.9 L Hct (37.5 - 50.7 %) 25.5 L 25.0 L MCV (81.0 - 99.0 fL) 95.9 96.2 MCH (27.0 - 33.0 pg) 30.5 30.4 MCHC (33.0 - 37.0 g/dL) 31.8 L 31.6 L RDW (11.5 - 14.5 %) 18.2 H 18.3 H Plt Count (150 - 400 x10 3/uL) 88 L 83 L MPV (7.0 - 9.0 fL) 12.1 H 11.3 H Neut % (Auto) (56.0 - 77.0 %) 86.5 H 87.1 H Lymph % (Auto) (14.0 - 32.0 %) 3.6 L 3.9 L [place] % (Auto) (4.8 - 9.0 %) 8.3 7.9 Eos % (Auto) (0.3 - 3.7 %) 0.5 0.0 L Baso % (Auto) (0.0 - 2.0 %) 0.4 0.3 Neut # (Auto) (2.0 - 7.6 x10 3/uL) 20.33 H 18.2 0 H Lymph # (Auto) (1.0 - 3.8 x10 3/uL) 0.84 L 0.82 L [place] # (Auto) (0.1 - 0.8 x10 3/uL) 1.95 H 1.66 H Eos # (Auto) (0.0 - 0.2 x10 3/uL) 0.12 0.01 Baso # (Auto) (0.0 - 0.2 x10 3/uL) 0.10 0.06 Abs Immat Gran (auto) (0.00 - 0.03 x10 3/uL) 0. 17 H 0.16 H Add Manual Diff NO NO Immature Gran % (0.0 - 2.0 %) 0.7 0.8 Nucleated RBC % (0 - 0 %) 0.0 0.0 Nucleated RBCs # (Man) (0.0 - 0.1 x10 3/uL) 0.0 0 0.00 Laboratory Tests 07/10/22 0330: [Embedded Image Not Available] 07/09/22 2135: [Embedded Image Not Available] 07/09/22 1600: [Embedded Image Not Available] 07/09/22 1235: [Embedded Image Not Available] Microbiology: 07/07 223 NASAL: MSSA Surveillance Screen - ORD 07/07 2230 NASAL: MRSA DNA Surveillance Screen - ORD Radiology data Recent Impressions: RADIOLOGY - XR CHEST 1 V 07/10 0526 Report Impression - Status: SIGNED Entered: 07/10/2022 6806 IMPRESSION: 1. Small left apical pneumothorax, new from prio r studies with thoracostomy tube in place. 2. Stable pulmonary opacities likely combination of airspace disease and atelectasis. 3. Stable small pleural effusions. 4. Stable postoperative cardiomediastinal silhou ette. Impression By: [email or web address] Ratliff M.D. Free Text Obj Notes Free Text Obj Notes: General appearance: Elderly male in no acute dis tress, interactive HEENT: atraumatic, normocephalic, moist mucosal membranes Neck: full range of motion, supple/no meningismu s Cardiovascular: S1-S2 regular rate and rhythm Respiratory: symmetric expansion, no acute respi ratory distress Abdomen: soft, non-tender, no distention, no gua rding Genitourinary: waters with minimal urine Extremities: pedal pulses palpable, moves all, n o cyanosis, mild LE edema Musculoskeletal: normal inspection, no muscle sp asm 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ALTH: alert and oriented x3, CNII-XII gross ly intact, no motor deficits Skin: dry, intact and clean surgery dressing Diagnosis, Assessment Plan Problem list/A P: 1. CLAUDETTE (acute kidney injury) 2. CAD (coronary artery disease) 3. Goiter 4. BPH (benign prostatic hyperplasia) 5. Dyslipidemia 6. HTN (hypertension) Free text A P: 73-year-old male with Acute pulmonary insufficiency following thoracic surgery Status post CABG x 5 (MISTRY-LAD, SVG-Ladonna, SVG-OM1 < SVG-OM3, SVG-PDA) and ALAA Acute blood loss anemia Hypotension Ischemic cardiomyopathy, EF 30 to 34% Multivessel CAD CLAUDETTE on hemodialysis Continue mechanical ventilation, vent settings r eviewed Titrate FiO2 to keep saturation more than 90%. Spontaneous breathing trial as soon as possible Wean to extubate Follow ABGs and CXRs ABG shows metabolic acidosis. Patient re ceived 2 A of sodium bicarb and 1 g of calcium Keep off sedation Judicious pain control Milrinone drip 0.25 Epinephrine drip Norepinephrine drip Vasopressin drip Titrate drips to keep MAP more than 65 Wean milrinone off first per CV surgery Minimize fluids per CV surgery Aspirin and Plavix Atorvastatin Metoprolol Follow lactate level Monitor chest tube output Hemodialysis per nephrology Monitor urine output and kidney function Monitor and replete electrolytes Perioperative antibiotics Cardiac diet with bowel regimen once extubated BG control with insulin gtt per protocol PT/OT VTE prophylaxis. Stress ulcer prophylaxis. Discussed with CV surgery, anesthesia and ICU te am Critical care time 85 minutes 07/09 Appears neuro intact, multimodal pain control, m inimize narcotic use, no CO2 narcosis Extubated successfully, sats well on NC, wean O2 , monitor for hypercapnia, encourage I-S, obtain serial ABGs, CXR reviewed HD unstable, weaning vasopre ssors and inotrope, monitor HD parameters, low CVP, lactic acidosis with uptrending lactate, gentle volume resuscitation Oliguric CLAUDETTE, plan for CRRT per renal, h yperkalemia treated, obtain serial lab PO challenge, bowel regimen, serial abdominal ex am, monitor LFTs Leukocytosis postop, likely reactive, trend WBC, s/p antibiotic course for UTI , periop antibiotics Hgb trending down, no eviden ce of active bleed, monitor CTs output, RBC given HD instability Blood glucose control with insulin drip per prot ocol Encourage PT/OT and activity as tolerated DVT and GI prophylaxis with DAPT and PPI 2/2 Appears neuro intact, multimodal pain control, m inimize narcotic use sats well on NC, wean O2, encourage I-S, PT and CXR reviewed HD fairly stable, on minimal vasopressor support , lactic acidosis cleared s/p resuscitation Oliguric CLAUDETTE, tolerated CRRT, holding off per re nal, monitor UOP and electrolytes closely Oral diet as tolerated, bowel regimen, monitor L FTs Leukocytosis postop, trend WBC, treated for UTI preop Hgb responded to PRBC, no evidence of active ble ed, minimal CTs output Blood glucose control, transitioned insulin drip to SSI Encourage PT/OT and out of bed as tolerated DVT and GI prophylaxis with DAPT and PPI Consultants: cardiology, cardiovascular surgery, nephrology Plan discussed with: patient , consultants, nurse, interdisc care team, pharmacy/ pharmacist Critical care time: Minutes: 39 Electronically Signed by Edwardo Flannery MD on 08/28 at 1500 RPT #:[id number] END OF REPORT 2022-07-09 18:57:00-00:00 [facility] Nephrology Progress Note REPORT#:[id number] REPORT STATUS: Signed DATE:07/09/22 TIME: 1856 PATIENT: SHERRI ARCE UNIT #: [id number] ROOM/BED: [place] [address] : 42 AGE: 81 SEX: M ATTEND: Radha Ward ADM AUTHOR: Evelina Plaza MD * ALL edits or amendments must be made on the [email or web address] document * Subjective Chief complaint: has no SOB. Objective General VS/I O: Vital Signs: Date Time Temp Pulse Resp B/P B/P Pulse O2 O2 Flow FiO2 Mean Ox Delivery Rate 02/ 1630 119/44 61 02/01 1630 95.7 65 23 96/54 69 94 02/01 1601 110/40 57 02/01 1601 96.3 67 26 98/54 70 94 02/01 1530 121/42 60 02/01 1530 96.6 68 23 102/58 77 96 02/01 1500 139/47 70 02/01 1500 97.3 71 24 122/60 85 96 02/01 1430 127/45 65 02/01 1430 98.1 72 23 115/56 80 97 02/01 1400 109/40 58 02/01 1400 98.6 75 27 107/57 78 96 02/01 1330 102/36 53 02/01 1330 98.6 74 23 96/55 73 97 02/01 1300 98/35 51 02/01 1300 98.6 76 24 94/53 71 97 02/01 1230 95/37 52 02/01 1230 98.6 78 24 90/55 70 98 02/01 1200 92/36 49 02/01 1200 98.8 80 25 85/47 61 97 02/01 1130 98/39 53 02/01 1130 98.8 82 27 87/50 63 98 02/01 1110 83/32 46 02/01 1110 84 31 72/42 51 02/01 1100 96/37 55 02/01 1100 98.8 82 33 91/50 63 99 02/01 1030 109/41 59 02/01 1030 98.6 83 9 100/57 75 99 02/01 1000 107/40 57 02/01 1000 98.6 84 6 94/52 67 97 02/01 0930 99/38 53 02/01 0930 98.6 85 22 88/53 66 96 02/01 0900 94/35 50 02/01 0900 98.6 89 27 86/52 64 95 02/01 0830 103/37 53 02/01 0830 98.6 89 0 94/52 69 96 02/01 0800 101/38 53 02/01 0800 98.6 90 5 92/53 67 98 02/01 0730 119/43 64 02/01 0730 98.6 96 34 96/57 70 96 02/01 0726 96 Nasal 3 cannula 02/01 0715 Nasal 4 cannula 02/01 0700 98.4 92 3 96/53 71 98 02/01 0630 98.4 95 16 93/55 70 97 02/01 0616 98.4 93 15 102/56 76 99 02/01 0600 98.4 93 13 100/54 74 98 02/01 0530 98.4 93 25 101/57 76 97 02/01 0500 98.2 95 26 97/55 72 98 02/01 0430 98.4 96 21 103/56 76 97 02/01 0400 98.2 100 25 102/54 74 97 02/01 0342 98 Nasal 4 cannula 02/01 0330 98.1 97 22 108/58 78 98 02/01 0312 98.1 97 22 106/57 79 99 02/01 0300 97.9 97 4 105/56 77 98 02/01 0230 97.9 97 21 102/55 74 100 02/01 0200 97.9 99 24 105/56 77 100 02/01 0100 97.9 99 23 106/50 72 100 02/01 0030 98.1 107 28 100/53 74 100 02/01 0000 98.1 107 14 97/54 72 100 07/08 2350 98.1 109 16 89/53 69 100 07/08 2330 98.1 112 27 84/49 63 100 07/08 2300 97.7 109 14 94/53 70 100 07/08 2230 97.5 114 15 100/51 69 100 07/08 2215 97.3 123 20 78/49 57 100 07/08 2154 97.2 111 20 86/47 61 100 07/08 2149 97.2 111 17 90/55 69 99 07/08 2129 96.8 115 22 108/53 77 99 07/08 2124 111/50 65 07/08 2104 115 20 114/47 100 07/08 2100 96.4 117 22 126/63 88 99 07/08 2054 96.4 114 18 116/58 80 99 07/08 2053 96.4 114 17 119/58 83 100 07/08 2049 96.4 110 16 114/57 77 100 07/08 2044 114/49 65 07/08 2044 96.4 108 18 110/57 78 100 07/08 2039 115/48 64 07/08 2039 96.4 107 16 105/54 76 100 07/08 2034 121/49 66 07/08 2029 96.6 107 16 111/55 79 100 07/08 2019 96.6 104 16 111/58 80 100 07/08 2009 96.8 102 16 88/50 65 100 07/08 2004 96.8 102 16 105/55 75 100 07/08 1999 98.2 07/08 1999 97.0 103 17 106/55 77 100 07/08 1918 100 Ventilator 50 07/08 1918 99 100 50 24 hour I O ending at 0700: 07/09 0700 07/08 1900 Intake Total 2090.50 300 Output Total 480 300 Balance 1610.50 0 Intake, IV 1850.50 Intake, Oral 240 300 Intake, Oral 0 Supplement Number 0 Bowel Movements Output, Chest 330 Tube Drainage Output, Urine 150 300 PATIENT WEIGHT: Weight (lb): 185 Weight (oz): 3.01 Weight (kg): 84.000 Medications Active Meds + DC'd Last 24 Hrs Ipratropium Kersey (ATROVENT) 500 MCG RTQ2H PRN PRN INH Cyanocobalamin (Vitamin B-12 500 mcg tab) 500 MC G DAILY PO Ferrous Sulfate (FERROUS SULFATE) 325 MG DAILY P O Bisacodyl (DULCOLAX) 10 MG ONCE PRN RECTAL Magnesium Hydroxide (MILK OF MAGNESIA) 30 ML ONC E PRN PO Atorvastatin Calcium (LIPITOR) 40 MG 2100 PO Calcium Gluconate/Sodium Chloride (Calcium Gluco hilario 1 GM/NS 50 mL) 50 ML ONCE ONE IV (DC) Clopidogrel Bisulfate (Plavix) 75 MG DAILY PO Polyethylene Glycol (MIRALAX) 17 GM DAILY PO Miscellaneous Information (PHARMACY TO DOSE/EVAL UATE) 1 EACH ASDIR MISC Calcium Chloride (CALCIUM CHLORIDE) 1 GM ASDIR P RN IV Sodium Chloride (SODIUM CHLORIDE 0.9%) 100 ML Calcium Chloride (CALCIUM CHLORIDE) 2 GM ASDIR P RN IV Sodium Chloride (SODIUM CHLORIDE 0.9%) 100 ML Magnesium Sulfate (MAGNESIUM SULFATE 4GM/SWFI 10 0ML) 100 ML ASDIR PRN IV Magnesium Sulfate (MAGNESIUM SULFATE 2GM/SWFI 50 ML) 50 ML ASDIR PRN IV Miscellaneous (PRISMASATE BGK 4/2.5 SOLUTION) 5, 000 ML ASDIR DIALYSIS Potassium Chloride (KCL 10MEQ/SWFI 50ML) 50 ML A SDIR PRN IV Sodium Chloride (SODIUM CHLORIDE 0.9%) 2,000 ML ASDIR PRN IV Sodium Phosphate (SODIUM PHOSPHATE) 25 MMOL ASDI R PRN IV Sodium Chloride (SODIUM CHLORIDE 0.9%) 250 ML Sodium Phosphate (SODIUM PHOSPHATE) 20 MMOL ASDI R PRN IV Sodium Chloride (SODIUM CHLORIDE 0.9%) 250 ML Sodium Phosphate (SODIUM PHOSPHATE) 15 MMOL ASDI R PRN IV Sodium Chloride (SODIUM CHLORIDE 0.9%) 250 ML Pantoprazole (PROTONIX) 40 MG DAILY@0600 PO Aspirin (ASPIRIN) 81 MG DAILY PO Vasopressin (VASOSTRICT 20 Unit/NS 100ML) 100 ML ASDIR IV (CKD) Albumin Human (ALBUMINAR 5% 12.5GM/250ML) 250 ML ONCE ONE IV (DC) Glycopyrrolate (GLYCOPYRROLATE) 1 MG ONCE ONE IV (DC) Neostigmine Methylsulfate (PROSTIGMIN) 5 MG ONCE ONE IV (DC) Amiodarone HCl (CORDARONE) 200 MG TID PO Docusate Sodium (COLACE) 100 MG BID PO Gabapentin (NEURONTIN) 200 MG BID PO Metoprolol Tartrate (LOPRESSOR) 12.5 MG Q12HR PO Mupirocin (BACTROBAN 2% 22 GM OINTMENT) 1 APPLIC BID NASAL Sennosides (Senna Lax 8.6 MG TABLET) 17.2 MG BED TIME PO Albumin Human (ALBUMINAR-25%) 100 ML .STK-MED ON E IV (DC) Cefazolin Sodium (KEFZOL OR ANCEF) 6 GM ONCE ONE IV (DC) Sodium Chloride (SODIUM CHLORIDE 0.9%) 500 ML Ipratropium Kersey (ATROVENT) 500 MCG RTQ4H INH Acetaminophen (TYLENOL) 650 MG Q4H PRN PRN PO Acetaminophen (TYLENOL) 650 MG Q4H PRN PRN RECTA L Albumin Human (ALBUMINAR 25%) 25 GM ASDIR PRN IV (DC) Calcium Chloride (CALCIUM CHLORIDE) 1 GM ASDIR P RN IV Dextrose/Water (DEXTROSE 10% IN WATER) 125 ML DIR PRN IV (CKD) Dextrose/Water (DEXTROSE 10% IN WATER) 250 ML DIR PRN IV (CKD) Epinephrine (ADRENALIN CHLORIDE) 4 MG ASDIR IV Dextrose/Water (DEXTROSE 5% WATER) 246 ML Glucagon (GLUCAGON) 1 MG ASDIR PRN IM Insulin Human Regular (HumuLIN R) 100 UNIT ASDIR IV (CKD) Sodium Chloride (SODIUM CHLORIDE 0.9%) 99 ML Magnesium Sulfate (MAGNESIUM SULFATE 4GM/SWFI 10 0ML) 100 ML ASDIR PRN IV Magnesium Sulfate (MAGNESIUM SULFATE 2GM/SWFI 50 ML) 50 ML ASDIR PRN IV Magnesium Sulfate/Dextrose (MAGNESIUM SULFATE 1G M/D5W 100ML) 100 ML ASDIR PRN IV Morphine Sulfate (morphine SULFATE) 4 MG Q2H PRN PRN IV (DC) Nitroglycerin/Dextrose (NITROGLYCERIN 50,000MCG/ D5W 250ML) 250 ML ASDIR IV Norepinephrine Bitartrate (NOREPINEPHRINE 8 MG/N S 250 ML) 250 ML TITRATE IV Ondansetron HCl (ZOFRAN) 4 MG Q6H PRN PRN IV Oxycodone HCl (ROXICODONE) 5 MG Q4H PRN PRN PO Oxycodone HCl (ROXICODONE) 10 MG Q4H PRN PRN PO Potassium Chloride (KCL 20MEQ/SWFI 100ML) 100 ML ASDIR PRN IV Sodium Bicarbonate (SODIUM BICARBONATE) 50 MEQ A SDIR PRN IV Sodium Chloride (SODIUM CHLORIDE 0.9%) 1,000 ML .Q20H IV Sodium Chloride (SODIUM CHLORIDE 0.9%) 250 ML Q2 4H IV Vancomycin HCl (VANCOMYCIN HCL) 1,250 MG PREOP O NCALL IV (DC) Sodium Chloride (SODIUM CHLORIDE 0.9%) 250 ML Verapamil HCl (ISOPTIN) 16.6 MG .Q24H ONE IV (DC ) Heparin Sodium (Porcine) (HEPARIN SODIUM) 1,660 UNIT Sodium Bicarbonate (SODIUM BICARBONATE) 0.7 ML Nitroglycerin/Dextrose (NITROGLYCERIN 50MG/D5W 250ML) 8.3 MG Lactated Ringer's (LACTATED RINGERS) 949.5 ML Acetaminophen (TYLENOL EXTRA STRENGTH) 1,000 MG PREOP ONCALL PO (DC) Sodium Chloride (SODIUM CHLORIDE) 20 ML ASDIR IV (DC) Lidocaine HCl (LIDOCAINE HCL/PF) 2 ML PREOP ONCA LL LOCAL (DC) Lidocaine HCl (LIDOCAINE HCL/PF) 2 ML PREOP ONCA LL LOCAL (DC) Sodium Chloride (SODIUM CHLORIDE 0.9%) 500 ML NV EOP ONCALL IV (DC) Sodium Chloride (SODIUM CHLORIDE 0.9%) 500 ML NV EOP ONCALL IV (DC) Sodium Chloride (SODIUM CHLORIDE) 5 ML ASDIR PRN IV (DC) Sodium Chloride (SODIUM CHLORIDE) 10 ML ASDIR NV N IV (DC) Sodium Chloride (SODIUM CHLORIDE 0.9%) 250 ML DIR PRN IV (DC) Bisacodyl (DULCOLAX) 10 MG DAILY PRN PRN RECTAL (DC) Polyethylene Glycol (MIRALAX) 17 GM DAILY PO (DC ) Senna/Docusate Sodium (SENOKOT S) 2 TAB DAILY PO (DC) Atorvastatin Calcium (LIPITOR) 20 MG BEDTIME PO (DC) Albumin Human (ALBUMINAR-25%) 12.5 GM ASDIR PRN IV Heparin Sodium (Porcine) (HEPARIN SODIUM) 3,000 UNIT ASDIR PRN DIALYSIS Lidocaine HCl (LIDOCAINE HCL/PF) 0.5 ML ASDIR NV N I-DERMAL (CKD) Mannitol (Mannitol 20%) 12.5 GM ASDIR PRN IV Sodium Chloride (SODIUM CHLORIDE 0.9%) 2,000 ML ASDIR PRN IV Sodium Chloride (SODIUM CHLORIDE) 5 ML ASDIR PRN IV (DC) Sodium Chloride (SODIUM CHLORIDE) 10 ML ASDIR NV N IV (DC) Sodium Chloride (SODIUM CHLORIDE 0.9%) 250 ML DIR PRN IV (DC) Tamsulosin HCl (Flomax 0.4 mg) 0.4 MG BEDTIME PO Docusate Sodium (COLACE) 100 MG BID PRN PRN PO ( DC) Labetalol HCl (LABETALOL HCL) 10 MG Q6H PRN PRN IV (DC) Physical Exam General appearance: alert, awake Head/eyes: atraumatic, normocephalic ENT: moist mucous membranes, normal nose Neck: non-tender, no JVD Extremities: no edema, no swelling 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ALTH: alert, oriented X 3, normal speech Skin: dry, intact Results Findings/Data: Laboratory Tests 07/09 07/09 07/09 07/09 1840 1018 0333 0306 Blood Gas Puncture Site R Radial Art Line [place] Ally Art L ine O2 Saturation (90 - 100 %) 83.1 L 93.8 93.0 ABG pH (7.35 - 7.45) 7.346 L 7.351 7.310 L ABG pCO2 (35.0 - 45 mmHg) 45.9 H 45.1 H 42.8 ABG pO2 (80 - 100.0 mmHg) 50.5 L 73.8 L 73.2 L ABG HCO3 (22.0 - 26.0 MMOL/L) 25.1 25.0 21.5 L ABG Total CO2 26.5 26.3 22.8 ABG Base Excess (-4.0 - 4.0 MMOL/L) -0.6 -0.6 - 4.7 L ABG Hematocrit (37.5 - 50.7 %) 25 L 21 L 19 L 2 1 L ABG Hemoglobin (12.5 - 16.9 G/DL) 8.3 L 7.3 L 6 .5 L 7.0 L Marylu Test N/A N/A VBG pH (7.33 - 7.45) 7.277 L VBG pCO2 (43 - 47 mmHg) 45.0 VBG pO2 (10 - 50 mmHG) 35.4 VBG HCO3 (22 - 27 MMOL/L) 21.0 L POC VBG Total CO2 22.4 VBG O2 Saturation (60 - 80 %) 60.2 VBG Base Excess (-4.0 - 4.0 MMOL/L) -5.8 L VBG Temperature (F) 98.6 Sodium (134 - 147 mmol/L) 141 144 147 146 Potassium (3.4 - 5.0 mmol/L) 4.6 5.0 4.1 4.1 Chloride (100 - 108 mmol/L) 106 109 H 112 H 110 H Ionized Calcium (1.12 - 1.32 MMOL/L) 1.16 1.16 1.20 1.23 Lactic Acid (0.9 - 1.7 mmol/l) 1.1 2.0 H 5.9 *H 6.1 *H Temperature (F) 98.6 O2 Delivery Device Room Air Cannula Cannula Can nula 07/08 07/08 07/08 2509 4769 9 Blood Gas Puncture Site Art Line Art Line [place] Al[place] O2 Saturation (90 - 100 %) 97.7 97.3 ABG pH (7.35 - 7.45) 7.299 *L 7.273 *L ABG pCO2 (35.0 - 45 mmHg) 41.3 46.4 H ABG pO2 (80 - 100.0 mmHg) 109.2 H 103.4 H ABG HCO3 (22.0 - 26.0 MMOL/L) 20.3 L 21.6 L ABG Total CO2 21.5 23.1 ABG Base Excess (-4.0 - 4.0 MMOL/L) -6.2 L -5.4 L ABG Hematocrit (37.5 - 50.7 %) 23 L 26 L 23 L ABG Hemoglobin (12.5 - 16.9 G/DL) 7.7 L 8.7 L 8 .0 L Marylu Test N/A N/A N/A VBG pH (7.33 - 7.45) 7.265 L VBG pCO2 (43 - 47 mmHg) 48.5 H VBG pO2 (10 - 50 mmHG) 41.1 VBG HCO3 (22 - 27 MMOL/L) 22.3 POC VBG Total CO2 23.9 VBG O2 Saturation (60 - 80 %) 72.4 VBG Base Excess (-4.0 - 4.0 MMOL/L) -4.9 L VBG Temperature (F) 96.4 Sodium (134 - 147 mmol/L) 148 H 146 148 H Potassium (3.4 - 5.0 mmol/L) 3.5 3.9 3.6 Chloride (100 - 108 mmol/L) 114 H 113 H 115 H Ionized Calcium (1.12 - 1.32 MMOL/L) 1.18 1.29 1.26 Lactic Acid (0.9 - 1.7 mmol/l) 5.1 *H 3.6 H 2.5 H Temperature (F) 98.6 97.2 Respiration Rate (/min) 16 O2 Delivery Device Cannula Adult Vent Adult Jan t Vent Mode PS SIMV FiO2 (%) 50 Tidal Volume (ml) 450 PEEP (cmH2O) 5 5 Pressure Support (cmH2O) 07/08 Blood Gas Puncture Site Art Line O2 Saturation (90 - 100 %) 97.7 ABG pH (7.35 - 7.45) 7.263 *L ABG pCO2 (35.0 - 45 mmHg) 44.1 ABG pO2 (80 - 100.0 mmHg) 111.1 H ABG PO2/FiO2 Ratio (mm/Hg) 222.20 ABG HCO3 (22.0 - 26.0 MMOL/L) 20.1 L ABG Total CO2 21.5 ABG Base Excess (-4.0 - 4.0 MMOL/L) -7.1 L ABG Hematocrit (37.5 - 50.7 %) 24 L ABG Hemoglobin (12.5 - 16.9 G/DL) 8.3 L Sodium (134 - 147 mmol/L) 146 Potassium (3.4 - 5.0 mmol/L) 3.9 Chloride (100 - 108 mmol/L) 114 H Ionized Calcium (1.12 - 1.32 MMOL/L) 1.18 Lactic Acid (0.9 - 1.7 mmol/l) 2.1 H Temperature (F) 97.3 O2 Delivery Device Adult Vent Vent Mode AC Vent Rate (/MIN) 16 FiO2 (%) 50 Tidal Volume (ml) 450 PEEP (cmH2O) 5 Laboratory Tests 07/09 07/09 07/09 07/09 1840 1600 1245 1235 Chemistry Sodium (134 - 147 mEq/L) 143 145 Potassium (3.4 - 5.0 mEq/L) 4.8 5.3 H Chloride (100 - 108 mEq/L) 109 H 111 H Carbon Dioxide (21 - 33 mEq/l) 26 24 Anion Gap (0 - 20) 13 15 BUN (7 - 18 mg/dL) 29 H 36 H Creatinine (0.6 - 1.3 mg/dL) 3.2 H 3.9 H POC Creatinine (0.8 - 1.3 mg/dL) 3.2 H Glomerular Filtr Rate (70 - 80) 19.0 L 15.0 L Glucose (70 - 110 mg/dL) 138 H 178 H POC Glucose (70 - 110 MG/DL) 162 H POC Glucose (mg/dL) (70 - 110 MG/DL) 115 H Calcium (8.0 - 10.5 mg/dL) 8.7 7.8 L Ionized Calcium Tenzin (1.09 - 1.30 MMOL/L) 1.16 1.08 L Phosphorus (2.5 - 4.9 MG/DL) 4.3 Magnesium (1.80 - 2.40 mg/dL) 2.28 2.37 07/09 07/09 07/09 07/09 07/09 1018 0844 0739 0333 0306 Chemistry POC Creatinine (0.8 - 1.3 mg/dL) 3.8 H 4.4 H 4. 4 H POC Glucose (70 - 110 MG/DL) 154 H 178 H POC Glucose (mg/dL) (70 - 110 MG/DL) 145 H 229 H 245 H 07/09 07/09 07/09 07/09 07/08 0300 0300 0233 0124 2335 Chemistry Sodium (134 - 147 mEq/L) 149 H Potassium (3.4 - 5.0 mEq/L) 4.3 Chloride (100 - 108 mEq/L) 111 H Carbon Dioxide (21 - 33 mEq/l) 23 Anion Gap (0 - 20) 20 BUN (7 - 18 mg/dL) 38 H Creatinine (0.6 - 1.3 mg/dL) 4.6 H POC Creatinine (0.8 - 1.3 mg/dL) 4.1 H Glomerular Filtr Rate (70 - 80) 12.3 L Glucose (70 - 110 mg/dL) 241 H POC Glucose (70 - 110 MG/DL) 230 H POC Glucose (mg/dL) (70 - 110 MG/DL) 234 H Lactic Acid (0.4 - 1.9 mmol/L) 6.0 *H 6.6 *H Calcium (8.0 - 10.5 mg/dL) 8.9 Magnesium (1.80 - 2.40 mg/dL) 2.45 H Total Bilirubin (0.0 - 1.0 mg/dL) 0.20 Direct Bilirubin (0.0 - 0.30 MG/DL) 0.10 Indirect Bilirubin (MG/DL) 0.10 AST (15 - 37 IUnit/L) 46 H ALT (30 - 65 IUnit/L) 15 L Total Alk Phosphatase (20 - 125 40 IUnit/L) Total Protein (6.4 - 8.2 g/dL) 5.5 L Albumin (3.4 - 5.0 g/dL) 3.60 07/08 07/08 07/08 07/08 07/08 2234 2151 6 1940 1940 Chemistry Sodium (134 - 147 mEq/L) 148 H Potassium (3.4 - 5.0 mEq/L) 4.0 Chloride (100 - 108 mEq/L) 114 H Carbon Dioxide (21 - 33 mEq/l) 22 Anion Gap (0 - 20) 16 BUN (7 - 18 mg/dL) 37 H Creatinine (0.6 - 1.3 mg/dL) 4.1 H POC Creatinine (0.8 - 1.3 mg/dL) 3.9 H 3.9 H Glomerular Filtr Rate (70 - 80) 14.1 L Glucose (70 - 110 mg/dL) 197 H POC Glucose (mg/dL) (70 - 110 MG/DL) 206 H 190 H Lactic Acid (0.4 - 1.9 mmol/l) 5.0 *H 2.1 H Calcium (8.0 - 10.5 mg/dL) 7.6 L Magnesium (1.80 - 2.40 mg/dL) 2.53 H 07/08 1934 Chemistry POC Creatinine (0.8 - 1.3 mg/dL) 3.9 H POC Glucose (mg/dL) (70 - 110 MG/DL) 201 H Laboratory Tests 07/08 1940 Coagulation INR (0.8 - 1.2) 1.5 H PTT (Agus) (25.0 - 39.5 Seconds) 31.3 PT Patient/Control Mix (9.3 - 12.9 SECONDS) 16. 2 H Laboratory Tests 07/09 02 1600 0300 Hematology WBC (4.5 - 11.0 x10 3/uL) 20.9 H 24.9 H RBC (4.00 - 5.60 x10 6/uL) 2.60 L 2.13 L Hgb (12.5 - 16.9 g/dL) 7.9 L 6.5 L Hct (37.5 - 50.7 %) 25.0 L 21.5 L MCV (81.0 - 99.0 fL) 96.2 100.9 H MCH (27.0 - 33.0 pg) 30.4 30.5 MCHC (33.0 - 37.0 g/dL) 31.6 L 30.2 L RDW (11.5 - 14.5 %) 18.3 H 16.3 H Plt Count (150 - 400 x10 3/uL) 83 L 91 L MPV (7.0 - 9.0 fL) 11.3 H 11.3 H Neut % (Auto) (56.0 - 77.0 %) 87.1 H 90.8 H Lymph % (Auto) (14.0 - 32.0 %) 3.9 L 1.2 L [place] % (Auto) (4.8 - 9.0 %) 7.9 6.6 Eos % (Auto) (0.3 - 3.7 %) 0.0 L 0.0 L Baso % (Auto) (0.0 - 2.0 %) 0.3 0.2 Neut # (Auto) (2.0 - 7.6 x10 3/uL) 18.20 H 22.6 0 H Lymph # (Auto) (1.0 - 3.8 x10 3/uL) 0.82 L 0.31 L [place] # (Auto) (0.1 - 0.8 x10 3/uL) 1.66 H 1.65 H Eos # (Auto) (0.0 - 0.2 x10 3/uL) 0.01 0.00 Baso # (Auto) (0.0 - 0.2 x10 3/uL) 0.06 0.04 Abs Immat Gran (auto) (0.00 - 0.03 x10 3/uL) 0. 16 H 0.29 H Add Manual Diff NO NO Immature Gran % (0.0 - 2.0 %) 0.8 1.2 Nucleated RBC % (0 - 0 %) 0.0 0.0 Nucleated RBCs # (Man) (0.0 - 0.1 x10 3/uL) 0.0 0 0.00 Platelet Estimate (ADEQUATE THOUSAND) 92 TO 115 Plt Morphology Comment LARGE PLATELETS 07/08 1939 Hematology WBC (4.5 - 11.0 x10 3/uL) 39.6 H RBC (4.00 - 5.60 x10 6/uL) 2.45 L Hgb (12.5 - 16.9 g/dL) 7.6 L Hct (37.5 - 50.7 %) 24.6 L MCV (81.0 - 99.0 fL) 100.4 H MCH (27.0 - 33.0 pg) 31.0 MCHC (33.0 - 37.0 g/dL) 30.9 L RDW (11.5 - 14.5 %) 16.1 H Plt Count (150 - 400 x10 3/uL) 133 L MPV (7.0 - 9.0 fL) 11.1 H Neut % (Auto) (56.0 - 77.0 %) 87.8 H Lymph % (Auto) (14.0 - 32.0 %) 3.5 L [place] % (Auto) (4.8 - 9.0 %) 3.9 L Eos % (Auto) (0.3 - 3.7 %) 1.4 Baso % (Auto) (0.0 - 2.0 %) 0.3 Neut # (Auto) (2.0 - 7.6 x10 3/uL) 34.72 H Lymph # (Auto) (1.0 - 3.8 x10 3/uL) 1.40 [place] # (Auto) (0.1 - 0.8 x10 3/uL) 1.54 H Eos # (Auto) (0.0 - 0.2 x10 3/uL) 0.57 H Baso # (Auto) (0.0 - 0.2 x10 3/uL) 0.12 Abs Immat Gran (auto) (0.00 - 0.03 x10 3/uL) 1. 21 H Add Manual Diff NO Immature Gran % (0.0 - 2.0 %) 3.1 H Nucleated RBC % (0 - 0 %) 0.0 Nucleated RBCs # (Man) (0.0 - 0.1 x10 3/uL) 0.0 0 Radiology data: Recent Impressions: RADIOLOGY - XR CHEST 1 V 07/08 1919 Report Impression - Status: SIGNED Entered: 07/08/20221957 IMPRESSION: Postoperative change with minimal vascular conge stion and bibasilar pulmonary opacities. Impression By: Noreen Perdue RADIOLOGY - XR CHEST 1 V 07/09 0615 Report Impression - Status: SIGNED Entered: 07/09/2022 0956 IMPRESSION: 1. Stable pulmonary opacities likely combination of airspace disease and atelectasis. 2. Stable left basilar pleuroparenchymal changes with small volume pleural effusions. 3. Stable postoperative cardiomediastinal silhou ette. Impression By: Robert Ratliff M.D. Diagnosis, Assessment Plan Free Text A P: Assessment: 1-CLAUDETTE likely from urinary retention. oliguric AK I now post op, from shock! 2- non-STEMI: multivessel disease w main left. 3- BPH 4-severe bilateral hydronephrosis 5- shock : Hypotension 6-hyperlipidemia 7- Lactic acidosis Plan: -unknown Scr baseline. - He underwent LHC on 07/03. 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 - CRRT with gentle ultrafilt ration given hemodynamic instability and up tredning lactic acidosis - continue Waters catheter and strict intake and output Discussed with patient and cardiothoracic surger y team Consultants: cardiology, cardiovascular surgery, nephrology Electronically Signed by Evelina Plaza MD on 06/30 at 1909 RPT #:[id number] END OF REPORT 2022-07-09 12:54:00-00:00 [facility]L [facility] ([facility] Cardiothoracic Surgery Prog REPORT#:[id number] REPORT STATUS: Signed DATE:07/09/22 TIME: 1254 PATIENT: SHERRI ARCE UNIT #: [id number] ROOM/BED: [place] [id number] : 42 AGE: 81 SEX: M ATTEND: Srinath Kaur MD ADM AUTHOR: Rosalind Toribio * ALL edits or amendments must be made on the [email or web address] document * General Post-op: day 1 Status post: 07/08/22 CABG x 5 (MISTRY-LAD, SVG-Ladonna, SVG-OM1< SVG-OM3, S VG-PDA) ALAA EVH (RGSV) Subjective Chief complaint: Chest Pain Pre CABG eval s/p CABG Review of Systems Constitutional: Denies: chills, fever, malaise. Allergy/Immun: Denies: allergic reaction. Respiratory: Denies: SOB. Cardiovascular: Denies: chest pain, palpitations. GI: Denies: abdominal pain, nausea, vomiting. : Denies: dysuria, hematuria. Heme: Denies: bleeding. Neuro: Denies: dizziness, headache, vision change. All systems rev neg: except as marked Objective General VS/I O Last Documented: Result Date Time Pulse Ox 96 07/09 07 O2 Delivery Nasal cannula 07/09 725 O2 Flow Rate 3 07/09 725 B/P 96/53 07/09 699 B/P Mean 71 07/09 699 Temp 98.4 07/09 699 Pulse 92 07/09 699 Resp 3 07/09 699 FiO2 50 07/08 1919 24 hour I O ending at 0700: 07/09 0700 07/08 1900 Intake Total 2090.50 300 Output Total 480 300 Balance 1610.50 0 Intake, IV 1850.50 Intake, Oral 240 300 Intake, Oral 0 Supplement Number 0 Bowel Movements Output, Chest 330 Tube Drainage Output, Urine 150 300 PATIENT WEIGHT: Weight (lb): 185 Weight (oz): 3.01 Weight (kg): 84.000 Dietitian Nutrition assessment The data set between the solid lines has been im ported from the dietitian's assessment. BMI Calculated: 25.1 Nutrition related diagnosis: Nutrition diagnosis details: Nutrition problem: Nutrition etiology: Nutrition signs and symptoms: Nutrition prescription: Dietitian name: Assessment completed: Physical Exam General appearance: alert, awake, oriented Wound/incision: Location: sternal Site condition: dressing clean dry, dressing in tact HEENT: anicteric, mucosal membranes moist Neck: supple/no meningismus Cardiovascular: normal heart sounds, regular rat e rhythm Respiratory: aerating well, symmetric expansion, no distress Abdomen: soft, non-tender, no distention Genitourinary: waters, oN hd Extremities: moves all 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ALTH: alert, oriented X 3, normal speech, n o motor deficits Psychiatry: normal affect, normal mood Current Medications Medications: Active Meds + DC'd Last 24 Hrs Ipratropium Kersey (ATROVENT) 500 MCG RTQ2H NV N PRN INH Cyanocobalamin (Vitamin B-12 500 mcg tab) 500 MC G DAILY PO Ferrous Sulfate (FERROUS SULFATE) 325 MG DAILY P O Bisacodyl (DULCOLAX) 10 MG ONCE PRN RECTAL Magnesium Hydroxide (MILK OF MAGNESIA) 30 ML ONC E PRN PO Atorvastatin Calcium (LIPITOR) 40 MG 2100 PO Clopidogrel Bisulfate (Plavix) 75 MG DAILY PO Polyethylene Glycol (MIRALAX) 17 GM DAILY PO Miscellaneous Information (PHARMACY TO DOSE/EVAL UATE) 1 EACH ASDIR MISC Calcium Chloride (CALCIUM CHLORIDE) 1 GM ASDIR P RN IV Sodium Chloride (SODIUM CHLORIDE 0.9%) 100 ML Calcium Chloride (CALCIUM CHLORIDE) 2 GM ASDIR P RN IV Sodium Chloride (SODIUM CHLORIDE 0.9%) 100 ML Magnesium Sulfate (MAGNESIUM SULFATE 4GM/SWFI 10 0ML) 100 ML ASDIR PRN IV Magnesium Sulfate (MAGNESIUM SULFATE 2GM/SWFI 50 ML) 50 ML ASDIR PRN IV Miscellaneous (PRISMASATE BGK 4/2.5 SOLUTION) 5, 000 ML ASDIR DIALYSIS Potassium Chloride (KCL 10MEQ/SWFI 50ML) 50 ML A SDIR PRN IV Sodium Chloride (SODIUM CHLORIDE 0.9%) 2,000 ML ASDIR PRN IV Sodium Phosphate (SODIUM PHOSPHATE) 25 MMOL ASDI R PRN IV Sodium Chloride (SODIUM CHLORIDE 0.9%) 250 ML Sodium Phosphate (SODIUM PHOSPHATE) 20 MMOL ASDI R PRN IV Sodium Chloride (SODIUM CHLORIDE 0.9%) 250 ML Sodium Phosphate (SODIUM PHOSPHATE) 15 MMOL ASDI R PRN IV Sodium Chloride (SODIUM CHLORIDE 0.9%) 250 ML Pantoprazole (PROTONIX) 40 MG DAILY@0600 PO Aspirin (ASPIRIN) 81 MG DAILY PO Vasopressin (VASOSTRICT 20 Unit/NS 100ML) 100 ML ASDIR IV (CKD) Albumin Human (ALBUMINAR 5% 12.5GM/250ML) 250 ML ONCE ONE IV (DC) Glycopyrrolate (GLYCOPYRROLATE) 1 MG ONCE ONE IV (DC) Neostigmine Methylsulfate (PROSTIGMIN) 5 MG ONCE ONE IV (DC) Amiodarone HCl (CORDARONE) 200 MG TID PO Docusate Sodium (COLACE) 100 MG BID PO Gabapentin (NEURONTIN) 200 MG BID PO Metoprolol Tartrate (LOPRESSOR) 12.5 MG Q12HR PO Mupirocin (BACTROBAN 2% 22 GM OINTMENT) 1 APPLIC BID NASAL Sennosides (Senna Lax 8.6 MG TABLET) 17.2 MG BED TIME PO Albumin Human (ALBUMINAR-25%) 100 ML .STK-MED ON E IV (DC) Cefazolin Sodium (KEFZOL OR ANCEF) 6 GM ONCE ONE IV (CKD) Sodium Chloride (SODIUM CHLORIDE 0.9%) 500 ML Ipratropium Kersey (ATROVENT) 500 MCG RTQ4H INH Acetaminophen (TYLENOL) 650 MG Q4H PRN PRN PO Acetaminophen (TYLENOL) 650 MG Q4H PRN PRN RECTA L Albumin Human (ALBUMINAR 25%) 25 GM ASDIR PRN IV Calcium Chloride (CALCIUM CHLORIDE) 1 GM ASDIR P RN IV Dextrose/Water (DEXTROSE 10% IN WATER) 125 ML DIR PRN IV (CKD) Dextrose/Water (DEXTROSE 10% IN WATER) 250 ML DIR PRN IV (CKD) Epinephrine (ADRENALIN CHLORIDE) 4 MG ASDIR IV Dextrose/Water (DEXTROSE 5% WATER) 246 ML Glucagon (GLUCAGON) 1 MG ASDIR PRN IM Insulin Human Regular (HumuLIN R) 100 UNIT ASDIR IV (CKD) Sodium Chloride (SODIUM CHLORIDE 0.9%) 99 ML Magnesium Sulfate (MAGNESIUM SULFATE 4GM/SWFI 10 0ML) 100 ML ASDIR PRN IV Magnesium Sulfate (MAGNESIUM SULFATE 2GM/SWFI 50 ML) 50 ML ASDIR PRN IV Magnesium Sulfate/Dextrose (MAGNESIUM SULFATE 1G M/D5W 100ML) 100 ML ASDIR PRN IV Morphine Sulfate (morphine SULFATE) 4 MG Q2H PRN PRN IV (DC) Nitroglycerin/Dextrose (NITROGLYCERIN 50,000MCG/ D5W 250ML) 250 ML ASDIR IV Norepinephrine Bitartrate (NOREPINEPHRINE 8 MG/N S 250 ML) 250 ML TITRATE IV Ondansetron HCl (ZOFRAN) 4 MG Q6H PRN PRN IV Oxycodone HCl (ROXICODONE) 5 MG Q4H PRN PRN PO Oxycodone HCl (ROXICODONE) 10 MG Q4H PRN PRN PO Potassium Chloride (KCL 20MEQ/SWFI 100ML) 100 ML ASDIR PRN IV Sodium Bicarbonate (SODIUM BICARBONATE) 50 MEQ A SDIR PRN IV Sodium Chloride (SODIUM CHLORIDE 0.9%) 1,000 ML .Q20H IV Sodium Chloride (SODIUM CHLORIDE 0.9%) 250 ML Q2 4H IV Rocuronium Kersey (ZEMURON) 0 .STK-MED ONE IV ( DC) Sodium Chloride (SODIUM CHLORIDE 0.9%) 100 ML .S TK-MED ONE IV (DC) Calcium Chloride (CALCIUM CHLORIDE) 0 .STK-MED O NE IV (DC) Milrinone Lactate/Dextrose (MILRINONE 20MG/D5W 1 00ML) 100 ML .STK-MED ONE IV (DC) Sodium Chloride (SODIUM CHLORIDE) 10 ML .STK-MED ONE IV (DC) Vasopressin (VASOSTRICT) 0 .STK-MED ONE .ROUTE ( DC) Vasopressin (VASOSTRICT) 0 .STK-MED ONE .ROUTE ( DC) Isoflurane (FORANE) 0 .STK-MED ONE INH (DC) Sodium Chloride (SODIUM CHLORIDE 0.9%) 100 ML .S TK-MED ONE IV (DC) Albumin Human (ALBUMINAR-25%) 50 ML .STK-MED ONE IV (DC) Cefazolin Sodium (KEFZOL OR ANCEF) 2 GM PREOP IVF EMBRYOLOGIST IV (DC) Vancomycin HCl (VANCOMYCIN HCL) 1,250 MG PREOP O NCALL IV (DC) Sodium Chloride (SODIUM CHLORIDE 0.9%) 250 ML Verapamil HCl (ISOPTIN) 16.6 MG .Q24H ONE IV (DC ) Heparin Sodium (Porcine) (HEPARIN SODIUM) 1,660 UNIT Sodium Bicarbonate (SODIUM BICARBONATE) 0.7 ML Nitroglycerin/Dextrose (NITROGLYCERIN 50MG/D5W 250ML) 8.3 MG Lactated Ringer's (LACTATED RINGERS) 949.5 ML Acetaminophen (TYLENOL EXTRA STRENGTH) 1,000 MG PREOP ONCALL PO (DC) Gabapentin (NEURONTIN) 200 MG PREOP ONCALL PO (D C) Sodium Chloride (SODIUM CHLORIDE) 20 ML ASDIR IV (DC) Lidocaine HCl (LIDOCAINE HCL/PF) 2 ML PREOP ONCA LL LOCAL (DC) Lidocaine HCl (LIDOCAINE HCL/PF) 2 ML PREOP ONCA LL LOCAL (DC) Sodium Chloride (SODIUM CHLORIDE 0.9%) 500 ML NV EOP ONCALL IV (DC) Sodium Chloride (SODIUM CHLORIDE 0.9%) 500 ML NV EOP ONCALL IV (DC) Sodium Chloride (SODIUM CHLORIDE) 5 ML ASDIR PRN IV (DC) Sodium Chloride (SODIUM CHLORIDE) 10 ML ASDIR NV N IV (DC) Sodium Chloride (SODIUM CHLORIDE 0.9%) 250 ML DIR PRN IV (DC) Bisacodyl (DULCOLAX) 10 MG DAILY PRN PRN RECTAL (DC) Polyethylene Glycol (MIRALAX) 17 GM DAILY PO (DC ) Senna/Docusate Sodium (SENOKOT S) 2 TAB DAILY PO (DC) Atorvastatin Calcium (LIPITOR) 20 MG BEDTIME PO (DC) Ceftriaxone Sodium (ROCEPHIN 1000MG VIAL) 1,000 MG Q24H IV (DC) Sodium Chloride (SODIUM CHLORIDE) 10 ML Albumin Human (ALBUMINAR-25%) 12.5 GM ASDIR PRN IV Heparin Sodium (Porcine) (HEPARIN SODIUM) 3,000 UNIT ASDIR PRN DIALYSIS Lidocaine HCl (LIDOCAINE HCL/PF) 0.5 ML ASDIR NV N I-DERMAL (CKD) Mannitol (Mannitol 20%) 12.5 GM ASDIR PRN IV Sodium Chloride (SODIUM CHLORIDE 0.9%) 2,000 ML ASDIR PRN IV Sodium Chloride (SODIUM CHLORIDE) 5 ML ASDIR PRN IV (DC) Sodium Chloride (SODIUM CHLORIDE) 10 ML ASDIR NV N IV (DC) Sodium Chloride (SODIUM CHLORIDE 0.9%) 250 ML DIR PRN IV (DC) Aspirin (ASPIRIN) 81 MG DAILY PO (DC) Metoprolol Tartrate (LOPRESSOR) 12.5 MG BID PO ( DC) Tamsulosin HCl (Flomax 0.4 mg) 0.4 MG BEDTIME PO Docusate Sodium (COLACE) 100 MG BID PRN PRN PO ( DC) Labetalol HCl (LABETALOL HCL) 10 MG Q6H PRN PRN IV (DC) Ondansetron HCl (ZOFRAN) 4 MG Q4H PRN PRN IV (DC ) Results Findings/Data: Laboratory Tests 07/09 07/09 07/09 07/08 1018 [id number] 2003 Blood Gas Puncture Site Art Line [place] Art Line Art Line O2 Saturation (90 - 100 %) 93.8 93.0 97.7 ABG pH (7.35 - 7.45) 7.351 7.310 L 7.299 *L ABG pCO2 (35.0 - 45 mmHg) 45.1 H 42.8 41.3 ABG pO2 (80 - 100.0 mmHg) 73.8 L 73.2 L 109.2 H ABG HCO3 (22.0 - 26.0 MMOL/L) 25.0 21.5 L 20.3 L ABG Total CO2 26.3 22.8 21.5 ABG Base Excess (-4.0 - 4.0 MMOL/L) -0.6 -4.7 L -6.2 L ABG Hematocrit (37.5 - 50.7 %) 21 L 19 L 21 L 2 3 L ABG Hemoglobin (12.5 - 16.9 G/DL) 7.3 L 6.5 L 7 .0 L 7.7 L Marylu Test N/A N/A N/A VBG pH (7.33 - 7.45) 7.277 L VBG pCO2 (43 - 47 mmHg) 45.0 VBG pO2 (10 - 50 mmHG) 35.4 VBG HCO3 (22 - 27 MMOL/L) 21.0 L POC VBG Total CO2 22.4 VBG O2 Saturation (60 - 80 %) 60.2 VBG Base Excess (-4.0 - 4.0 MMOL/L) -5.8 L VBG Temperature (F) 98.6 Sodium (134 - 147 mmol/L) 144 147 146 148 H Potassium (3.4 - 5.0 mmol/L) 5.0 4.1 4.1 3.5 Chloride (100 - 108 mmol/L) 109 H 112 H 110 H 1 14 H Ionized Calcium (1.12 - 1.32 MMOL/L) 1.16 1.20 1.23 1.18 Lactic Acid (0.9 - 1.7 mmol/l) 2.0 H 5.9 *H 6. 1 *H 5.1 *H Temperature (F) 98.6 98.6 O2 Delivery Device Cannula Cannula Cannula Cyndi damián 07/08 Blood Gas Puncture Site Art Line [place] Art Line O2 Saturation (90 - 100 %) 97.3 97.7 ABG pH (7.35 - 7.45) 7.273 *L 7.263 *L ABG pCO2 (35.0 - 45 mmHg) 46.4 H 44.1 ABG pO2 (80 - 100.0 mmHg) 103.4 H 111.1 H ABG PO2/FiO2 Ratio (mm/Hg) 222.20 ABG HCO3 (22.0 - 26.0 MMOL/L) 21.6 L 20.1 L ABG Total CO2 23.1 21.5 ABG Base Excess (-4.0 - 4.0 MMOL/L) -5.4 L -7.1 L ABG Hematocrit (37.5 - 50.7 %) 26 L 23 L 24 L ABG Hemoglobin (12.5 - 16.9 G/DL) 8.7 L 8.0 L 8 .3 L Marylu Test N/A N/A VBG pH (7.33 - 7.45) 7.265 L VBG pCO2 (43 - 47 mmHg) 48.5 H VBG pO2 (10 - 50 mmHG) 41.1 VBG HCO3 (22 - 27 MMOL/L) 22.3 POC VBG Total CO2 23.9 VBG O2 Saturation (60 - 80 %) 72.4 VBG Base Excess (-4.0 - 4.0 MMOL/L) -4.9 L VBG Temperature (F) 96.4 Sodium (134 - 147 mmol/L) 146 148 H 146 Potassium (3.4 - 5.0 mmol/L) 3.9 3.6 3.9 Chloride (100 - 108 mmol/L) 113 H 115 H 114 H Ionized Calcium (1.12 - 1.32 MMOL/L) 1.29 1.26 1.18 Lactic Acid (0.9 - 1.7 mmol/l) 3.6 H 2.5 H 2.1 H Temperature (F) 97.2 97.3 Respiration Rate (/min) 16 O2 Delivery Device Adult Vent Adult Vent Adult Vent Vent Mode PS SIMV AC Vent Rate (/MIN) 16 FiO2 (%) 50 50 Tidal Volume (ml) 450 450 PEEP (cmH2O) 5 5 5 Pressure Support (cmH2O) 07/08 1843 1748 1719 1641 Blood Gas O2 Saturation (90 - 100 %) 99.9 100.0 99.9 100. 0 ABG pH (7.35 - 7.45) 7.313 L 7.432 7.401 7.355 ABG pCO2 (35.0 - 45 mmHg) 36.8 33.6 L 33.4 L 4 3.3 ABG pO2 (80 - 100.0 mmHg) 375.0 *H 404.5 *H 327 .7 *H 469.8 *H ABG HCO3 (22.0 - 26.0 MMOL/L) 18.7 L 22.4 20.7 L 24.2 ABG Total CO2 19.8 23.4 21.7 25.5 ABG Base Excess (-4.0 - 4.0 MMOL/L) -6.9 L -1.6 -3.6 -1.3 ABG Hematocrit (37.5 - 50.7 %) 22 L 23 L 25 L 2 5 L ABG Hemoglobin (12.5 - 16.9 G/DL) 7.5 L 7.7 L 8 .6 L 8.4 L Sodium (134 - 147 mmol/L) 147 144 142 142 Potassium (3.4 - 5.0 mmol/L) 3.7 5.0 4.7 4.6 Chloride (100 - 108 mmol/L) 117 H 109 H 110 H 1 08 Ionized Calcium (1.12 - 1.32 MMOL/L) 1.06 L 1.0 3 L 1.04 L 1.06 L Lactic Acid (0.9 - 1.7 mmol/l) 2.5 H 1.8 H 1.2 0.6 L 07/08 07/08 1548 1449 Blood Gas O2 Saturation (90 - 100 %) 100.0 100.0 ABG pH (7.35 - 7.45) 7.262 *L 7.330 L ABG pCO2 (35.0 - 45 mmHg) 49.5 H 40.0 ABG pO2 (80 - 100.0 mmHg) 458.7 *H 487.7 *H ABG HCO3 (22.0 - 26.0 MMOL/L) 22.3 21.1 L ABG Total CO2 23.8 22.3 ABG Base Excess (-4.0 - 4.0 MMOL/L) -4.8 L -4. 5 L ABG Hematocrit (37.5 - 50.7 %) 32 L 33 L ABG Hemoglobin (12.5 - 16.9 G/DL) 10.8 L 11.3 L Sodium (134 - 147 mmol/L) 144 147 Potassium (3.4 - 5.0 mmol/L) 4.1 4.2 Chloride (100 - 108 mmol/L) 111 H 112 H Ionized Calcium (1.12 - 1.32 MMOL/L) 1.15 1.11 L Lactic Acid (0.9 - 1.7 mmol/l) 0.8 L < 0.3 L Laboratory Tests 07/09 07/09 07/09 07/09 07/09 1245 1018 0844 0739 0333 Chemistry POC Creatinine (0.8 - 1.3 mg/dL) 3.8 H 4.4 H POC Glucose (70 - 110 MG/DL) 162 H 154 H 178 H POC Glucose (mg/dL) (70 - 110 MG/DL) 145 H 229 H 07/09 07/09 07/09 07/09 07/09 0306 0300 0300 0233 0124 Chemistry Sodium (134 - 147 mEq/L) 149 H Potassium (3.4 - 5.0 mEq/L) 4.3 Chloride (100 - 108 mEq/L) 111 H Carbon Dioxide (21 - 33 mEq/l) 23 Anion Gap (0 - 20) 20 BUN (7 - 18 mg/dL) 38 H Creatinine (0.6 - 1.3 mg/dL) 4.6 H POC Creatinine (0.8 - 1.3 mg/dL) 4.4 H Glomerular Filtr Rate (70 - 80) 12.3 L Glucose (70 - 110 mg/dL) 241 H POC Glucose (70 - 110 MG/DL) 230 H POC Glucose (mg/dL) (70 - 110 MG/DL) 245 H Lactic Acid (0.4 - 1.9 mmol/L) 6.0 *H 6.6 *H Calcium (8.0 - 10.5 mg/dL) 8.9 Magnesium (1.80 - 2.40 mg/dL) 2.45 H Total Bilirubin (0.0 - 1.0 mg/dL) 0.20 Direct Bilirubin (0.0 - 0.30 MG/DL) 0.10 Indirect Bilirubin (MG/DL) 0.10 AST (15 - 37 IUnit/L) 46 H ALT (30 - 65 IUnit/L) 15 L Total Alk Phosphatase (20 - 125 IUnit/L) 40 Total Protein (6.4 - 8.2 g/dL) 5.5 L Albumin (3.4 - 5.0 g/dL) 3.60 07/08 07/08 07/08 07/08 07/08 2335 2234 2151 2046 1940 Chemistry POC Creatinine (0.8 - 1.3 mg/dL) 4.1 H 3.9 H 3. 9 H POC Glucose (mg/dL) (70 - 110 MG/DL) 234 H 206 H 190 H Lactic Acid (0.4 - 1.9 mmol/l) 5.0 *H 2.1 H 07/08 07/08 07/08 07/08 07/08 1940 1934 1843 1748 1719 Chemistry Sodium (134 - 147 mEq/L) 148 H Potassium (3.4 - 5.0 mEq/L) 4.0 Chloride (100 - 108 mEq/L) 114 H Carbon Dioxide (21 - 33 mEq/l) 22 Anion Gap (0 - 20) 16 BUN (7 - 18 mg/dL) 37 H Creatinine (0.6 - 1.3 mg/dL) 4.1 H POC Creatinine (0.8 - 1.3 mg/dL) 3.9 H 3.9 H 4. 0 H 4.3 H Glomerular Filtr Rate (70 - 80) 14.1 L Glucose (70 - 110 mg/dL) 197 H POC Glucose (mg/dL) (70 - 110 MG/DL) 201 H 181 H 171 H 171 H Calcium (8.0 - 10.5 mg/dL) 7.6 L Magnesium (1.80 - 2.40 mg/dL) 2.53 H 07/08 07/08 07/08 1641 1548 1449 Chemistry POC Creatinine (0.8 - 1.3 mg/dL) 4.0 H 4.6 H 4. 0 H POC Glucose (mg/dL) (70 - 110 MG/DL) 169 H 141 H 88 Laboratory Tests 07/08 07/08 07/08 07/08 07/08 1940 1845 1750 1721 1643 Coagulation INR (0.8 - 1.2) 1.5 H PTT ([place]) (25.0 - 39.5 Seconds) 31.3 PT Patient/Control Mix (9.3 - 12.9 16.2 H SECONDS) Activated Coag Time (74 - 137 SEC) 143 H 522 H 636 H 648 H 07/08 07/08 1550 1452 Coagulation Activated Coag Time (74 - 137 SEC) 606 H 137 Laboratory Tests 07/09 07/08 0300 1940 Hematology WBC (4.5 - 11.0 x10 3/uL) 24.9 H 39.6 H RBC (4.00 - 5.60 x10 6/uL) 2.13 L 2.45 L Hgb (12.5 - 16.9 g/dL) 6.5 L 7.6 L Hct (37.5 - 50.7 %) 21.5 L 24.6 L MCV (81.0 - 99.0 fL) 100.9 H 100.4 H MCH (27.0 - 33.0 pg) 30.5 31.0 MCHC (33.0 - 37.0 g/dL) 30.2 L 30.9 L RDW (11.5 - 14.5 %) 16.3 H 16.1 H Plt Count (150 - 400 x10 3/uL) 91 L 133 L MPV (7.0 - 9.0 fL) 11.3 H 11.1 H Neut % (Auto) (56.0 - 77.0 %) 90.8 H 87.8 H Lymph % (Auto) (14.0 - 32.0 %) 1.2 L 3.5 L [place] % (Auto) (4.8 - 9.0 %) 6.6 3.9 L Eos % (Auto) (0.3 - 3.7 %) 0.0 L 1.4 Baso % (Auto) (0.0 - 2.0 %) 0.2 0.3 Neut # (Auto) (2.0 - 7.6 x10 3/uL) 22.60 H 34.7 2 H Lymph # (Auto) (1.0 - 3.8 x10 3/uL) 0.31 L 1.4 0 [place] # (Auto) (0.1 - 0.8 x10 3/uL) 1.65 H 1.54 H Eos # (Auto) (0.0 - 0.2 x10 3/uL) 0.00 0.57 H Baso # (Auto) (0.0 - 0.2 x10 3/uL) 0.04 0.12 Abs Immat Gran (auto) (0.00 - 0.03 x10 3/uL) 0. 29 H 1.21 H Add Manual Diff NO NO Immature Gran % (0.0 - 2.0 %) 1.2 3.1 H Nucleated RBC % (0 - 0 %) 0.0 0.0 Nucleated RBCs # (Man) (0.0 - 0.1 x10 3/uL) 0.0 0 0.00 Platelet Estimate (ADEQUATE THOUSAND) 92 TO 115 Plt Morphology Comment LARGE PLATELETS Radiology data: Recent Impressions: RADIOLOGY - XR CHEST 1 V 07/08 1919 Report Impression - Status: SIGNED Entered: 07/08/20221957 IMPRESSION: Postoperative change with minimal vascular conge stion and bibasilar pulmonary opacities. Impression By: Noreen Perdue RADIOLOGY - XR CHEST 1 V 07/09 0615 Report Impression - Status: SIGNED Entered: 07/09/2022 0956 IMPRESSION: 1. Stable pulmonary opacities likely combination of airspace disease and atelectasis. 2. Stable left basilar pleuroparenchymal changes with small volume pleural effusions. 3. Stable postoperative cardiomediastinal silhou ette. Impression By: Robert Ratliff M.D. Results: labs reviewed, vital signs stable, danilo turcios personally rev'd, x-ray personally reviewed, current med profile rev'd Quality: Trauma Gen Surg Advanced Care Plan 65 or Older Discussed with: patient Discussion included: living will (none), power of employment law attorney (none), code status ( full code) VTE Prophylaxis - General VTE prophylaxis initiated: yes Diagnosis, Assessment Plan Hospital course to date: This is a 81-year-old gentleman who presented to an outside hospital with complaints of chest pains while walking at his home on Thursday. He denies any previous history of coronary artery disease or o ther NE. He was seen and evaluated at [facility]. He was found to have a urinary tract infection with urinary retention and acute kidne y. He was started on dialysis via a left femoral temporary catheter. He underw ent dialysis on Thursday, Thursday. Renal has been consulted During his work-up at outside hospital he underw ent Left heart catheterization showing sever e Left Main 70%. LAD: Proximal diffuse 80% stenosis and then diffuse 60% in the midsegment and on the distal segment, there is focal 70% stenosis. Diagonal branches w ith luminal irregularities. Left circumflex, codominant circulation with pro ximal 80%, mid 80 to 90% and then in the OM, there is proximal 60%, distal le ft circumflex has a 70% stenosis. RCA large and dominant with proximal 4 0% stenosis, mid 60% stenosis and then diffuse 50% stenosi s all the way distally and the PLV and the PDA with luminal irregularities. CV surgery consulted for evaluation for coronary bypass graft. CAROTIDS - No carotid stenosis CT chest complete IMPRESSION: Small bilateral pleural effusions with bibasila r atelectasis. Echo: 1. Left ventricle: The cavity size is at the upp er limits of normal. Wall thickness is mildly increased. Systolic fu nction is severely reduced. The estimated ejection fraction is 30- 34%. Moderate hypokinesis of the entire myocardium. Doppler p arameters are consistent with abnormal left ventricular relax ation (grade 1 diastolic dysfunction). 2. Pericardium, extracardiac: A small pericardia l effusion is identified along the left ventricular free wall, along the right ventricular free wall, and along the right atrial free wall . Assessment/Plan 1) CAD Mutlivessel Will obtain echo,carotids. 2) CLAUDETTE Started dialysis on Creatine 7.3 Renal consulted. 3) BPH- Urinary retention. Waters in place Workup for CABG underway. Will get functional assessment with PT. PFT pending Carotid dopplers- No disease Echo Pending Dialyiss per Renal. Baseline Cr unknown. 07/04 07/04 Doing well today, alert, up in the chair. Denies chest pain Echocardiogram showed LVEF 30 to 34%, mild MR, t rivial TR CT chest images reviewed Encourage I-S and mobilization Creatinine 5.5 from 7.3, good urine output. Pao l US showed bilateral severe hydronephrosis. Plan for HD today and tomorrow Will tentatively schedule patient for surgery on Thursday. Patient seen and plan reviewed with Dr Schwarz 07/05 Remains in a stable condition, denies chest pain BUN 53, creatinine 5.4. Plan for hemodia lysis today and tomorrow for clearance He is also on Lasix 20 mg IV twice daily, urine output 1.1 L overnight We will calculate risk of surgery with STS score Encourage I-S and mobilization Will tentatively schedule patient for surgery on Thursday. Pt seen and plan reviewed with Dr Schwarz 07/06 BUN 36, creatinine 4.4. Plan for hemodialysis to day Awaiting CABG tomorrow Surgery, risks involved, STS score, benefits, co mplications and alternatives were explained to the patient. He acknow ledged understanding and is willing to proceed N.p.o. after midnight Patient seen and plan reviewed with Dr. Schwarz 07/09/22 POD 1 CABG x 5 (MISTRY-LAD, SVG-Ladonna, SVG-OM1< SVG-OM3, S VG-PDA), ALAA, EVH (RGSV) Patient hemodynamically unstable, on epi at 4, a nd vaso .04, decreased uop overnight- 150cc Started patient on CRRT 2k/3.5 Wean epi as tolerated, Cardiac incex 2.8-3 labs and chest x-ray reviewed, electroly marcie stable, hgb 6.5- transfuse 2 units PRBC On 4l nasal cannula- encourage incentive spirome ter and deep breathing Keep both chest tubes and monitor outputs Glycemic control on insulin drip Cardiac diet Bowel regimen protocol Pain management SCDs for DVT and PPI for GI prophylaxis PT/OT Monitor patient closely in CVICU Plan of care discussed with Dr. Schwarz Consultants: cardiology, cardiovascular surgery, nephrology at 1535 at 1943 RPT #:[id number] END OF REPORT 2022-07-09 11:40:00-00:00 [id number] [place] [address] PATIENT NAME: SHERRI ARCE ADMIT DATE: 07/02/22 ACCOUNT NO: [id number] [place] [facility] [place] AGE: 81 REPORT TYPE: OPERATIVE REPORT SEX: M ADMITTING PHYSICIAN:Radha Ward MD ATTENDING PHYSICIAN:Sarbjit Mcarthur MD OPERATION DATE: 07/08/2022 PREOPERATIVE DIAGNOSIS: Coronary artery disease. POSTOPERATIVE DIAGNOSIS: Coronary artery disease . PROCEDURE: Urgent coronary artery bypass graftarianne gRaoul SURGEON: Lina Schwarz M.D. FOUR ROLL CALENDER OPERATOR: Renny Rodríguez M.D. ANESTHESIA: PROCEDURE IN DETAIL: Please refer to the ethan mir operative note by Dr. Schwarz. I assisted Dr. Schwarz during all criti pillo portions of surgery, conduits, cardiopulmonary bypass, coronary anast omosis. The cardiac surgeon number 2 was necessary for completing th is complex operation safely by helping to provide exposure, maintain hemostasis and performing the difficult coronary grafts. Dictated By: Renny Rodríguez MD Date Dictated: 07/09/2022 11:40:34 Date Transcribed: 07/09/2022 12:32:35 KM/MAN Receipt ID: [id number] Authenticated by Renny Rodríguez MD, FACS On 0 07/17/2022 07:44:37 PM at 0744 PATIENT NAME: SHERRI ARCE 2022-07-09 11:09:00-00:00 [facility] Hospitalist Progress Note REPORT#:[id number] REPORT STATUS: Signed DATE:07/09/22 TIME: 1109 PATIENT: SHERRI ARCE UNIT #: [id number] ROOM/BED: [place] [address] : 42 AGE: 81 SEX: M ATTEND: Radha Ward ADM AUTHOR: Radha Ward MD * ALL edits or amendments must be made on the [email or web address] document * Subjective Chief complaint: Status post CABG x5 yesterday, chest tube in sarah ce, on 2 L oxygen via nasal cannula, on epinephrine and vasopressin, plan for CRRT today, 2 PRBC BT ordered, Waters catheter in place, diet ordered. Pain cont rolled. HPI: 81 y/o man with PMHx of HTN, Dyslipidemia [facility] with chest pain and found to have a NSTEMI and also acute renal failure. Underwent cardiac c ath yesterday and found to have severe CAD including left main disease. Transfer here f or CABG evaluation. He also underwent HD Thursday and Thursday of this week. HD catheter was place at [facility]. Currently not having any chest pain. Had chest pain with SOB when he presentted to the previous hospital. Objective General VS/I O: Vital Signs: Date Time Temp Pulse Resp B/P B/P Pulse O2 O2 F low FiO2 Mean Ox Delivery Rate 02/01 1330 102/36 53 02/01 1330 98.6 74 23 96/55 73 97 02/01 1300 98/35 51 02/01 1300 98.6 76 24 94/53 71 97 02/01 1230 95/37 52 02/01 1230 98.6 78 24 90/55 70 98 02/01 1200 92/36 49 02/01 1200 98.8 80 25 85/47 61 97 02/01 1130 98/39 53 02/01 1130 98.8 82 27 87/50 63 98 02/01 1110 83/32 46 02/01 1110 84 31 72/42 51 02/01 1100 96/37 55 02/01 1100 98.8 82 33 91/50 63 99 02/01 1030 109/41 59 02/01 1030 98.6 83 9 100/57 75 99 02/01 1000 107/40 57 02/01 1000 98.6 84 6 94/52 67 97 02/01 0930 99/38 53 02/01 0930 98.6 85 22 88/53 66 96 02/01 0900 94/35 50 02/01 0900 98.6 89 27 86/52 64 95 02/01 0830 103/37 53 02/01 0830 98.6 89 0 94/52 69 96 02/01 0800 101/38 53 02/01 0800 98.6 90 5 92/53 67 98 02/01 0730 119/43 64 02/01 0730 98.6 96 34 96/57 70 96 02/01 0726 96 Nasal 3 cannula 02/01 0715 Nasal 4 cannula 02/01 0700 98.4 92 3 96/53 71 98 02/01 0630 98.4 95 16 93/55 70 97 02/01 0616 98.4 93 15 102/56 76 99 02/01 0600 98.4 93 13 100/54 74 98 02/01 0530 98.4 93 25 101/57 76 97 02/01 0500 98.2 95 26 97/55 72 98 02/01 0430 98.4 96 21 103/56 76 97 02/01 0400 98.2 100 25 102/54 74 97 02/01 0342 98 Nasal 4 cannula 02/01 0330 98.1 97 22 108/58 78 98 02/01 0312 98.1 97 22 106/57 79 99 02/01 0300 97.9 97 4 105/56 77 98 02/01 0230 97.9 97 21 102/55 74 100 02/01 0200 97.9 99 24 105/56 77 100 02/01 0100 97.9 99 23 106/50 72 100 02/01 0030 98.1 107 28 100/53 74 100 02/01 0000 98.1 107 14 97/54 72 100 07/08 2350 98.1 109 16 89/53 69 100 07/08 2330 98.1 112 27 84/49 63 100 07/08 2300 97.7 109 14 94/53 70 100 07/08 2230 97.5 114 15 100/51 69 100 07/08 2215 97.3 123 20 78/49 57 100 07/08 2154 97.2 111 20 86/47 61 100 07/08 2149 97.2 111 17 90/55 69 99 07/08 2129 96.8 115 22 108/53 77 99 07/08 2124 111/50 65 07/08 2104 115 20 114/47 100 07/08 2100 96.4 117 22 126/63 88 99 07/08 2054 96.4 114 18 116/58 80 99 07/08 2053 96.4 114 17 119/58 83 100 07/08 2049 96.4 110 16 114/57 77 100 07/08 2044 114/49 65 07/08 2044 96.4 108 18 110/57 78 100 07/08 2039 115/48 64 07/08 2039 96.4 107 16 105/54 76 100 07/08 2034 121/49 66 07/08 2029 96.6 107 16 111/55 79 100 07/08 2019 96.6 104 16 111/58 80 100 07/08 2009 96.8 102 16 88/50 65 100 07/08 2005 96.8 102 16 105/55 75 100 07/08 1999 98.2 07/08 1999 97.0 103 17 106/55 77 100 01/31 1919 100 Ventilator 50 01/31 1919 99 100 50 24 hour I O ending at 0700: 07/09 0700 07/08 1900 Intake Total 2090.50 300 Output Total 480 300 Balance 1610.50 0 Intake, IV 1850.50 Intake, Oral 240 300 Intake, Oral 0 Supplement Number 0 Bowel Movements Output, Chest 330 Tube Drainage Output, Urine 150 300 PATIENT WEIGHT: Weight (lb): 185 Weight (oz): 3.01 Weight (kg): 84.000 Medications: Active Meds + DC'd Last 24 Hrs Ipratropium Kersey (ATROVENT) 500 MCG RTQ2H PRN PRN INH Cyanocobalamin (Vitamin B-12 500 mcg tab) 500 MC G DAILY PO Ferrous Sulfate (FERROUS SULFATE) 325 MG DAILY P O Bisacodyl (DULCOLAX) 10 MG ONCE PRN RECTAL Magnesium Hydroxide (MILK OF MAGNESIA) 30 ML ONC E PRN PO Atorvastatin Calcium (LIPITOR) 40 MG 2100 PO Calcium Gluconate/Sodium Chloride (Calcium Gluco hilario 1 GM/NS 50 mL) 50 ML ONCE ONE IV (UNV) Clopidogrel Bisulfate (Plavix) 75 MG DAILY PO Polyethylene Glycol (MIRALAX) 17 GM DAILY PO Miscellaneous Information (PHARMACY TO DOSE/EVAL UATE) 1 EACH ASDIR MISC Calcium Chloride (CALCIUM CHLORIDE) 1 GM ASDIR P RN IV Sodium Chloride (SODIUM CHLORIDE 0.9%) 100 ML Calcium Chloride (CALCIUM CHLORIDE) 2 GM ASDIR P RN IV Sodium Chloride (SODIUM CHLORIDE 0.9%) 100 ML Magnesium Sulfate (MAGNESIUM SULFATE 4GM/SWFI 10 0ML) 100 ML ASDIR PRN IV Magnesium Sulfate (MAGNESIUM SULFATE 2GM/SWFI 50 ML) 50 ML ASDIR PRN IV Miscellaneous (PRISMASATE BGK 4/2.5 SOLUTION) 5, 000 ML ASDIR DIALYSIS Potassium Chloride (KCL 10MEQ/SWFI 50ML) 50 ML A SDIR PRN IV Sodium Chloride (SODIUM CHLORIDE 0.9%) 2,000 ML ASDIR PRN IV Sodium Phosphate (SODIUM PHOSPHATE) 25 MMOL ASDI R PRN IV Sodium Chloride (SODIUM CHLORIDE 0.9%) 250 ML Sodium Phosphate (SODIUM PHOSPHATE) 20 MMOL ASDI R PRN IV Sodium Chloride (SODIUM CHLORIDE 0.9%) 250 ML Sodium Phosphate (SODIUM PHOSPHATE) 15 MMOL ASDI R PRN IV Sodium Chloride (SODIUM CHLORIDE 0.9%) 250 ML Pantoprazole (PROTONIX) 40 MG DAILY@0600 PO Aspirin (ASPIRIN) 81 MG DAILY PO Vasopressin (VASOSTRICT 20 Unit/NS 100ML) 100 ML ASDIR IV (CKD) Albumin Human (ALBUMINAR 5% 12.5GM/250ML) 250 ML ONCE ONE IV (DC) Glycopyrrolate (GLYCOPYRROLATE) 1 MG ONCE ONE IV (DC) Neostigmine Methylsulfate (PROSTIGMIN) 5 MG ONCE ONE IV (DC) Amiodarone HCl (CORDARONE) 200 MG TID PO Docusate Sodium (COLACE) 100 MG BID PO Gabapentin (NEURONTIN) 200 MG BID PO Metoprolol Tartrate (LOPRESSOR) 12.5 MG Q12HR PO Mupirocin (BACTROBAN 2% 22 GM OINTMENT) 1 APPLIC BID NASAL Sennosides (Senna Lax 8.6 MG TABLET) 17.2 MG BED TIME PO Albumin Human (ALBUMINAR-25%) 100 ML .STK-MED ON E IV (DC) Cefazolin Sodium (KEFZOL OR ANCEF) 6 GM ONCE ONE IV (CKD) Sodium Chloride (SODIUM CHLORIDE 0.9%) 500 ML Ipratropium [place] (ATROVENT) 500 MCG RTQ4H INH Acetaminophen (TYLENOL) 650 MG Q4H PRN PRN PO Acetaminophen (TYLENOL) 650 MG Q4H PRN PRN RECTA L Albumin Human (ALBUMINAR 25%) 25 GM ASDIR PRN IV Calcium Chloride (CALCIUM CHLORIDE) 1 GM ASDIR P RN IV Dextrose/Water (DEXTROSE 10% IN WATER) 125 ML DIR PRN IV (CKD) Dextrose/Water (DEXTROSE 10% IN WATER) 250 ML DIR PRN IV (CKD) Epinephrine (ADRENALIN CHLORIDE) 4 MG ASDIR IV Dextrose/Water (DEXTROSE 5% WATER) 246 ML Glucagon (GLUCAGON) 1 MG ASDIR PRN IM Insulin Human Regular (HumuLIN R) 100 UNIT ASDIR IV (CKD) Sodium Chloride (SODIUM CHLORIDE 0.9%) 99 ML Magnesium Sulfate (MAGNESIUM SULFATE 4GM/SWFI 10 0ML) 100 ML ASDIR PRN IV Magnesium Sulfate (MAGNESIUM SULFATE 2GM/SWFI 50 ML) 50 ML ASDIR PRN IV Magnesium Sulfate/Dextrose (MAGNESIUM SULFATE 1G M/D5W 100ML) 100 ML ASDIR PRN IV Morphine Sulfate (morphine SULFATE) 4 MG Q2H PRN PRN IV (DC) Nitroglycerin/Dextrose (NITROGLYCERIN 50,000MCG/ D5W 250ML) 250 ML ASDIR IV Norepinephrine Bitartrate (NOREPINEPHRINE 8 MG/N S 250 ML) 250 ML TITRATE IV Ondansetron HCl (ZOFRAN) 4 MG Q6H PRN PRN IV Oxycodone HCl (ROXICODONE) 5 MG Q4H PRN PRN PO Oxycodone HCl (ROXICODONE) 10 MG Q4H PRN PRN PO Potassium Chloride (KCL 20MEQ/SWFI 100ML) 100 ML ASDIR PRN IV Sodium Bicarbonate (SODIUM BICARBONATE) 50 MEQ A SDIR PRN IV Sodium Chloride (SODIUM CHLORIDE 0.9%) 1,000 ML .Q20H IV Sodium Chloride (SODIUM CHLORIDE 0.9%) 250 ML Q2 4H IV Rocuronium Kersey (ZEMURON) 0 .STK-MED ONE IV ( DC) Sodium Chloride (SODIUM CHLORIDE 0.9%) 100 ML .S TK-MED ONE IV (DC) Calcium Chloride (CALCIUM CHLORIDE) 0 .STK-MED O NE IV (DC) Milrinone Lactate/Dextrose (MILRINONE 20MG/D5W 1 00ML) 100 ML .STK-MED ONE IV (DC) Sodium Chloride (SODIUM CHLORIDE) 10 ML .STK-MED ONE IV (DC) Vasopressin (VASOSTRICT) 0 .STK-MED ONE .ROUTE (DC) Vasopressin (VASOSTRICT) 0 .STK-MED ONE .ROUTE ( DC) Isoflurane (FORANE) 0 .STK-MED ONE INH (DC) Sodium Chloride (SODIUM CHLORIDE 0.9%) 100 ML .S TK-MED ONE IV (DC) Albumin Human (ALBUMINAR-25%) 50 ML .STK-MED ONE IV (DC) Cefazolin Sodium (KEFZOL OR ANCEF) 2 GM PREOP IVF EMBRYOLOGIST IV (DC) Vancomycin HCl (VANCOMYCIN HCL) 1,250 MG PREOP O NCALL IV (DC) Sodium Chloride (SODIUM CHLORIDE 0.9%) 250 ML Verapamil HCl (ISOPTIN) 16.6 MG .Q24H ONE IV (DC ) Heparin Sodium (Porcine) (HEPARIN SODIUM) 1,660 UNIT Sodium Bicarbonate (SODIUM BICARBONATE) 0.7 ML Nitroglycerin/Dextrose (NITROGLYCERIN 50MG/D5W 250ML) 8.3 MG Lactated Ringer's (LACTATED RINGERS) 949.5 ML Acetaminophen (TYLENOL EXTRA STRENGTH) 1,000 MG PREOP ONCALL PO (DC) Gabapentin (NEURONTIN) 200 MG PREOP ONCALL PO (D C) Sodium Chloride (SODIUM CHLORIDE) 20 ML ASDIR IV (DC) Lidocaine HCl (LIDOCAINE HCL/PF) 2 ML PREOP ONCA LL LOCAL (DC) Lidocaine HCl (LIDOCAINE HCL/PF) 2 ML PREOP ONCA LL LOCAL (DC) Sodium Chloride (SODIUM CHLORIDE 0.9%) 500 ML NV EOP ONCALL IV (DC) Sodium Chloride (SODIUM CHLORIDE 0.9%) 500 ML NV EOP ONCALL IV (DC) Sodium Chloride (SODIUM CHLORIDE) 5 ML ASDIR PRN IV (DC) Sodium Chloride (SODIUM CHLORIDE) 10 ML ASDIR NV N IV (DC) Sodium Chloride (SODIUM CHLORIDE 0.9%) 250 ML DIR PRN IV (DC) Bisacodyl (DULCOLAX) 10 MG DAILY PRN PRN RECTAL (DC) Polyethylene Glycol (MIRALAX) 17 GM DAILY PO (DC ) Senna/Docusate Sodium (SENOKOT S) 2 TAB DAILY PO (DC) Atorvastatin Calcium (LIPITOR) 20 MG BEDTIME PO (DC) Ceftriaxone Sodium (ROCEPHIN 1000MG VIAL) 1,000 MG Q24H IV (DC) Sodium Chloride (SODIUM CHLORIDE) 10 ML Albumin Human (ALBUMINAR-25%) 12.5 GM ASDIR PRN IV Heparin Sodium (Porcine) (HEPARIN SODIUM) 3,000 UNIT ASDIR PRN DIALYSIS Lidocaine HCl (LIDOCAINE HCL/PF) 0.5 ML ASDIR NV N I-DERMAL (CKD) Mannitol (Mannitol 20%) 12.5 GM ASDIR PRN IV Sodium Chloride (SODIUM CHLORIDE 0.9%) 2,000 ML ASDIR PRN IV Sodium Chloride (SODIUM CHLORIDE) 5 ML ASDIR PRN IV (DC) Sodium Chloride (SODIUM CHLORIDE) 10 ML ASDIR NV N IV (DC) Sodium Chloride (SODIUM CHLORIDE 0.9%) 250 ML DIR PRN IV (DC) Aspirin (ASPIRIN) 81 MG DAILY PO (DC) Metoprolol Tartrate (LOPRESSOR) 12.5 MG BID PO ( DC) Tamsulosin HCl (Flomax 0.4 mg) 0.4 MG BEDTIME PO Docusate Sodium (COLACE) 100 MG BID PRN PRN PO ( DC) Labetalol HCl (LABETALOL HCL) 10 MG Q6H PRN PRN IV (DC) Ondansetron HCl (ZOFRAN) 4 MG Q4H PRN PRN IV (DC ) Physical Exam General appearance: alert, awake, oriented Head/Eyes: atraumatic, EOMI, normal conjunctiva/ sclera, normocephalic, PERRLA ENT: moist mucosal membranes Neck: full range of motion, no bruit/NL carotids , no JVD Cardiovascular: normal heart sounds, regular rat e rhythm Respiratory: aerating well, clear to auscultatio n, symmetric expansion, no distress Abdomen: non-tender, normal bowel sounds , soft, no distention, no guarding, no rebound Extremities: moves all, no cyanosis, no edema Musculoskeletal: normal inspection 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ALTH: alert, oriented X 3, normal speech, n o motor deficits, no sensory deficits Skin: intact, normal color, no rash Psychiatry: normal affect Results Findings/Data: Laboratory Tests 07/09 07/09 07/09 07/08 1018 0333 0306 2335 Blood Gas Puncture Site Art Line [place] Art Line Art Line O2 Saturation (90 - 100 %) 93.8 93.0 97.7 ABG pH (7.35 - 7.45) 7.351 7.310 L 7.299 *L ABG pCO2 (35.0 - 45 mmHg) 45.1 H 42.8 41.3 ABG pO2 (80 - 100.0 mmHg) 73.8 L 73.2 L 109.2 H ABG HCO3 (22.0 - 26.0 MMOL/L) 25.0 21.5 L 20.3 L ABG Total CO2 26.3 22.8 21.5 ABG Base Excess (-4.0 - 4.0 MMOL/L) -0.6 -4.7 L -6.2 L ABG Hematocrit (37.5 - 50.7 %) 21 L 19 L 21 L 2 3 L ABG Hemoglobin (12.5 - 16.9 G/DL) 7.3 L 6.5 L 7 .0 L 7.7 L Marylu Test N/A N/A N/A VBG pH (7.33 - 7.45) 7.277 L VBG pCO2 (43 - 47 mmHg) 45.0 VBG pO2 (10 - 50 mmHG) 35.4 VBG HCO3 (22 - 27 MMOL/L) 21.0 L POC VBG Total CO2 22.4 VBG O2 Saturation (60 - 80 %) 60.2 VBG Base Excess (-4.0 - 4.0 MMOL/L) -5.8 L VBG Temperature (F) 98.6 Sodium (134 - 147 mmol/L) 144 147 146 148 H Potassium (3.4 - 5.0 mmol/L) 5.0 4.1 4.1 3.5 Chloride (100 - 108 mmol/L) 109 H 112 H 110 H 1 14 H Ionized Calcium (1.12 - 1.32 MMOL/L) 1.16 1.20 1.23 1.18 Lactic Acid (0.9 - 1.7 mmol/l) 2.0 H 5.9 *H 6.1 *H 5.1 *H Temperature (F) 98.6 98.6 O2 Delivery Device Cannula Cannula Cannula Cyndi damián 07/08 Blood Gas Puncture Site Art Line [place] Al[place] Art Line O2 Saturation (90 - 100 %) 97.3 97.7 ABG pH (7.35 - 7.45) 7.273 *L 7.263 *L ABG pCO2 (35.0 - 45 mmHg) 46.4 H 44.1 ABG pO2 (80 - 100.0 mmHg) 103.4 H 111.1 H ABG PO2/FiO2 Ratio (mm/Hg) 222.20 ABG HCO3 (22.0 - 26.0 MMOL/L) 21.6 L 20.1 L ABG Total CO2 23.1 21.5 ABG Base Excess (-4.0 - 4.0 MMOL/L) -5.4 L -7.1 L ABG Hematocrit (37.5 - 50.7 %) 26 L 23 L 24 L ABG Hemoglobin (12.5 - 16.9 G/DL) 8.7 L 8.0 L 8 .3 L Marylu Test N/A N/A VBG pH (7.33 - 7.45) 7.265 L VBG pCO2 (43 - 47 mmHg) 48.5 H VBG pO2 (10 - 50 mmHG) 41.1 VBG HCO3 (22 - 27 MMOL/L) 22.3 POC VBG Total CO2 23.9 VBG O2 Saturation (60 - 80 %) 72.4 VBG Base Excess (-4.0 - 4.0 MMOL/L) -4.9 L VBG Temperature (F) 96.4 Sodium (134 - 147 mmol/L) 146 148 H 146 Potassium (3.4 - 5.0 mmol/L) 3.9 3.6 3.9 Chloride (100 - 108 mmol/L) 113 H 115 H 114 H Ionized Calcium (1.12 - 1.32 MMOL/L) 1.29 1.26 1.18 Lactic Acid (0.9 - 1.7 mmol/l) 3.6 H 2.5 H 2.1 H Temperature (F) 97.2 97.3 Respiration Rate (/min) 16 O2 Delivery Device Adult Vent Adult Vent Adult Vent Vent Mode PS SIMV AC Vent Rate (/MIN) 16 FiO2 (%) 50 50 Tidal Volume (ml) 450 450 PEEP (cmH2O) 5 5 5 Pressure Support (cmH2O) 07/08 1843 1748 1719 1641 Blood Gas O2 Saturation (90 - 100 %) 99.9 100.0 99.9 100. 0 ABG pH (7.35 - 7.45) 7.313 L 7.432 7.401 7.355 ABG pCO2 (35.0 - 45 mmHg) 36.8 33.6 L 33.4 L 4 3.3 ABG pO2 (80 - 100.0 mmHg) 375.0 *H 404.5 *H 327 .7 *H 469.8 *H ABG HCO3 (22.0 - 26.0 MMOL/L) 18.7 L 22.4 20.7 L 24.2 ABG Total CO2 19.8 23.4 21.7 25.5 ABG Base Excess (-4.0 - 4.0 MMOL/L) -6.9 L -1.6 -3.6 -1.3 ABG Hematocrit (37.5 - 50.7 %) 22 L 23 L 25 L 2 5 L ABG Hemoglobin (12.5 - 16.9 G/DL) 7.5 L 7.7 L 8 .6 L 8.4 L Sodium (134 - 147 mmol/L) 147 144 142 142 Potassium (3.4 - 5.0 mmol/L) 3.7 5.0 4.7 4.6 Chloride (100 - 108 mmol/L) 117 H 109 H 110 H 108 Ionized Calcium (1.12 - 1.32 MMOL/L) 1.06 L 1.0 3 L 1.04 L 1.06 L Lactic Acid (0.9 - 1.7 mmol/l) 2.5 H 1.8 H 1.2 0.6 L 07/08 07/08 1978 [id number] Blood Gas O2 Saturation (90 - 100 %) 100.0 100.0 ABG pH (7.35 - 7.45) 7.262 *L 7.330 L ABG pCO2 (35.0 - 45 mmHg) 49.5 H 40.0 ABG pO2 (80 - 100.0 mmHg) 458.7 *H 487.7 *H ABG HCO3 (22.0 - 26.0 MMOL/L) 22.3 21.1 L ABG Total CO2 23.8 22.3 ABG Base Excess (-4.0 - 4.0 MMOL/L) -4.8 L -4.5 L ABG Hematocrit (37.5 - 50.7 %) 32 L 33 L ABG Hemoglobin (12.5 - 16.9 G/DL) 10.8 L 11.3 L Sodium (134 - 147 mmol/L) 144 147 Potassium (3.4 - 5.0 mmol/L) 4.1 4.2 Chloride (100 - 108 mmol/L) 111 H 112 H Ionized Calcium (1.12 - 1.32 MMOL/L) 1.15 1.11 L Lactic Acid (0.9 - 1.7 mmol/l) 0.8 L < 0.3 L Laboratory Tests 07/09 07/09 07/09 07/09 07/09 1245 1235 1018 8805 3830 Chemistry Sodium (134 - 147 mEq/L) 145 Potassium (3.4 - 5.0 mEq/L) 5.3 H Chloride (100 - 108 mEq/L) 111 H Carbon Dioxide (21 - 33 mEq/l) 24 Anion Gap (0 - 20) 15 BUN (7 - 18 mg/dL) 36 H Creatinine (0.6 - 1.3 mg/dL) 3.9 H POC Creatinine (0.8 - 1.3 mg/dL) 3.8 H Glomerular Filtr Rate (70 - 80) 15.0 L Glucose (70 - 110 mg/dL) 178 H POC Glucose (70 - 110 MG/DL) 162 H 154 H 178 H POC Glucose (mg/dL) (70 - 110 MG/DL) 145 H Calcium (8.0 - 10.5 mg/dL) 7.8 L Ionized Calcium Tenzin (1.09 - 1.30 MMOL/L) 1.08 L Phosphorus (2.5 - 4.9 MG/DL) 4.3 Magnesium (1.80 - 2.40 mg/dL) 2.37 07/09 07/09 07/09 07/09 07/09 0333 0306 0300 0300 0233 Chemistry Sodium (134 - 147 mEq/L) 149 H Potassium (3.4 - 5.0 mEq/L) 4.3 Chloride (100 - 108 mEq/L) 111 H Carbon Dioxide (21 - 33 mEq/l) 23 Anion Gap (0 - 20) 20 BUN (7 - 18 mg/dL) 38 H Creatinine (0.6 - 1.3 mg/dL) 4.6 H POC Creatinine (0.8 - 1.3 mg/dL) 4.4 H 4.4 H Glomerular Filtr Rate (70 - 80) 12.3 L Glucose (70 - 110 mg/dL) 241 H POC Glucose (70 - 110 MG/DL) 230 H POC Glucose (mg/dL) (70 - 110 MG/DL) 229 H 245 H Lactic Acid (0.4 - 1.9 mmol/L) 6.0 *H Calcium (8.0 - 10.5 mg/dL) 8.9 Magnesium (1.80 - 2.40 mg/dL) 2.45 H Total Bilirubin (0.0 - 1.0 mg/dL) 0.20 Direct Bilirubin (0.0 - 0.30 MG/DL) 0.10 Indirect Bilirubin (MG/DL) 0.10 AST (15 - 37 IUnit/L) 46 H ALT (30 - 65 IUnit/L) 15 L Total Alk Phosphatase (20 - 125 IUnit/L) 40 Total Protein (6.4 - 8.2 g/dL) 5.5 L Albumin (3.4 - 5.0 g/dL) 3.60 07/09 07/08 07/08 07/08 07/08 0124 2335 2234 2151 2046 Chemistry POC Creatinine (0.8 - 1.3 mg/dL) 4.1 H 3.9 H 3 .9 H POC Glucose (mg/dL) (70 - 110 MG/DL) 234 H 206 H 190 H Lactic Acid (0.4 - 1.9 mmol/L) 6.6 *H 5.0 *H 07/080 1940 1934 1843 1748 Chemistry Sodium (134 - 147 mEq/L) 148 H Potassium (3.4 - 5.0 mEq/L) 4.0 Chloride (100 - 108 mEq/L) 114 H Carbon Dioxide (21 - 33 mEq/l) 22 Anion Gap (0 - 20) 16 BUN (7 - 18 mg/dL) 37 H Creatinine (0.6 - 1.3 mg/dL) 4.1 H POC Creatinine (0.8 - 1.3 mg/dL) 3.9 H 3.9 H 4. 0 H Glomerular Filtr Rate (70 - 80) 14.1 L Glucose (70 - 110 mg/dL) 197 H POC Glucose (mg/dL) (70 - 110 MG/DL) 201 H 181 H 171 H Lactic Acid (0.4 - 1.9 mmol/L) 2.1 H Calcium (8.0 - 10.5 mg/dL) 7.6 L Magnesium (1.80 - 2.40 mg/dL) 2.53 H 07/08 07/08 07/08 07/08 1719 1641 1548 1449 Chemistry POC Creatinine (0.8 - 1.3 mg/dL) 4.3 H 4.0 H 4. 6 H 4.0 H POC Glucose (mg/dL) (70 - 110 MG/DL) 171 H 169 H 141 H 88 Laboratory Tests 07/08 07/08 07/08 07/08 07/08 1940 1845 1750 1721 1643 Coagulation INR (0.8 - 1.2) 1.5 H PTT (Agus) (25.0 - 39.5 Seconds) 31.3 PT Patient/Control Mix (9.3 - 12.9 16.2 H SECONDS) Activated Coag Time (74 - 137 SEC) 143 H 522 H 636 H 648 H 07/08 07/08 1550 1452 Coagulation Activated Coag Time (74 - 137 SEC) 606 H 137 Laboratory Tests 07/09 07/08 0300 1940 Hematology WBC (4.5 - 11.0 x10 3/uL) 24.9 H 39.6 H RBC (4.00 - 5.60 x10 6/uL) 2.13 L 2.45 L Hgb (12.5 - 16.9 g/dL) 6.5 L 7.6 L Hct (37.5 - 50.7 %) 21.5 L 24.6 L MCV (81.0 - 99.0 fL) 100.9 H 100.4 H MCH (27.0 - 33.0 pg) 30.5 31.0 MCHC (33.0 - 37.0 g/dL) 30.2 L 30.9 L RDW (11.5 - 14.5 %) 16.3 H 16.1 H Plt Count (150 - 400 x10 3/uL) 91 L 133 L MPV (7.0 - 9.0 fL) 11.3 H 11.1 H Neut % (Auto) (56.0 - 77.0 %) 90.8 H 87.8 H Lymph % (Auto) (14.0 - 32.0 %) 1.2 L 3.5 L [place] % (Auto) (4.8 - 9.0 %) 6.6 3.9 L Eos % (Auto) (0.3 - 3.7 %) 0.0 L 1.4 Baso % (Auto) (0.0 - 2.0 %) 0.2 0.3 Neut # (Auto) (2.0 - 7.6 x10 3/uL) 22.60 H 34. 72 H Lymph # (Auto) (1.0 - 3.8 x10 3/uL) 0.31 L 1.40 [place] # (Auto) (0.1 - 0.8 x10 3/uL) 1.65 H 1.54 H Eos # (Auto) (0.0 - 0.2 x10 3/uL) 0.00 0.57 H Baso # (Auto) (0.0 - 0.2 x10 3/uL) 0.04 0.12 Abs Immat Gran (auto) (0.00 - 0.03 x10 3/uL) 0. 29 H 1.21 H Add Manual Diff NO NO Immature Gran % (0.0 - 2.0 %) 1.2 3.1 H Nucleated RBC % (0 - 0 %) 0.0 0.0 Nucleated RBCs # (Man) (0.0 - 0.1 x10 3/uL) 0.0 0 0.00 Platelet Estimate (ADEQUATE THOUSAND) 92 TO 115 Plt Morphology Comment LARGE PLATELETS Radiology data: Recent Impressions: RADIOLOGY - XR CHEST 1 V 07/08 1919 Report Impression - Status: SIGNED Entered: 07/08/20221957 IMPRESSION: Postoperative change with minimal vascular conge stion and bibasilar pulmonary opacities. Impression By: Noreen Perdue RADIOLOGY - XR CHEST 1 V 07/09 0615 Report Impression - Status: SIGNED Entered: 07/09/2022 0956 IMPRESSION: 1. Stable pulmonary opacities likely combination of airspace disease and atelectasis. 2. Stable left basilar pleuroparenchymal changes with small volume pleural effusions. 3. Stable postoperative cardiomediastinal silhou ette. Impression By: Robert Ratliff M.D. Diagnosis, Assessment Plan Consultants: cardiology, cardiovascular surgery, nephrology Free Text DxA P Notes Free text DxA P notes: Assessment and plans: CAD (coronary artery disease) patient presented with NSTEMI and found to hve severe CAD. Cardiac cath shows: Left Main - Distal 70% LAD - Proximal 80% with another 60% and 70% les sions Cir - Proximal 80%,mid 80-90%, Distal 70% and O M 60% RCA - large dominant with proximal 40%, Mid 60% . Cardiology and CV surgeon consulted echo: ef 30-34%, mod hypokinesis of entire myoc ardium, grade 1 diastolic dysfunction Carotid Dopplers negative PFTs PT/OT s/p CABG X5 on 07/08 Patient on ASA, plavix, BB and Statin on amiodarone Beta-tomas on hold now, BP low, on epinephrin e and vasopressin 07/09 Acute systolic heart failure Echocardiac with estimated LVEF of 30 to 34% wi th grade 1 diastolic dysfunction -s/p Lasix 20 mg twice daily 07/05 -on metoprolol 12.5 mg bid on hold now, BP low -no ACEI/ spironolactione for CLAUDETTE -Strict I's and O's, daily weights -Start GDMT prior to discharge CLAUDETTE (acute kidney injury) No prior Hx of renal disease. hx of BPH and casimiro ated with Fosamax w/o improvement nd continue to h ave difficulty urinating. On admission was found to be on acute renal filaure and had received HD tw ice prior to arrival here ( thursday and thursday). Creatinine this am was 7.4, BUN 68 * Probably due to obstructive uropathy * waters already in place * Nephrology consuled for HD On daily hemodialysis as per nephrology CRRT today 07/09 Anemia: -Hemoglobin dropped to 6.5 s/p CABG 2 PRBC BT ordered 07/09 Monitor H H HTN (hypertension) patient on metoprolol 12.5 mg BID, will adjust as needed On labetalol/hydralazine as needed Dyslipidemia on Lipitor 40mg po daliy. BPH (benign prostatic hyperplasia) Started on Flomax at the previous hospital, thais l continue with it. Waters catheter in place, continue Waters cathete r as per nephrology 07/05 Goiter Hx of Goiter and surgical resection. TSH 3.33, within normal limits. Patient is not on Thyroid medication. anemia of chronic kidney disease Hemoglobin 9.5, monitor Hypokalemia resolved UTI continue Rocephin for empiric treatment pend ing results of urine culture No growth for 48 hours DVT prophylaxis: Heparin 5000 units every 8 hour s Diet: Cardiac diet CODE STATUS: Full code Disposition: Status post CABG x5 yesterd ay, chest tube in place, on 2 L oxygen via nasal cannula, on epinephrine and va sopressin, plan for CRRT today, 2 PRBC BT ordered, Waters catheter in place, diet ordere d. Continue CVICU care. Quality: Gen Med Crit Care VTE Prophylaxis VTE prophylaxis initiated: yes Current Medications Current medication review: I attest that the foregoing medication list in t he medical record is true, accurate, and complete to the best of my knowled ge. Advanced Care Plan 65 or Older Discussed with: patient Discussion included: living will (none), power of employment law attorney (none), code status ( full code) Electronically Signed by Radha Ward MD on 3 at 1446 RPT #:[id number] END OF REPORT 2022-07-09 08:06:00-00:00 [facility] Cardiology Progress Note REPORT#:[id number] REPORT STATUS: Signed DATE:07/09/22 TIME: 805 PATIENT: SHERRI ARCE UNIT #: [id number] ROOM/BED: [place] [address] : 42 AGE: 81 SEX: M ATTEND: Radha Ward ADM AUTHOR: Jyoti Browning NP * ALL edits or amendments must be made on the [email or web address] document * Subjective Chief complaint: s/p surgery Objective General VS/I O: Laboratory Tests 07/09/22 0300: [Embedded Image Not Available] 07/08/22 1940: [Embedded Image Not Available] 07/08/22 0530: [Embedded Image Not Available] Current Medications Sig/Earl Start time Last Medication Dose Route Stop Time Status Admin Ipratropium Kersey 500 MCG RTQ2H PRN PRN 07/11 1821 AC INH 08/10 1820 Cyanocobalamin 500 MCG DAILY 07/11 0900 AC PO 08/10 0859 Ferrous Sulfate 325 MG DAILY 07/11 0900 AC PO 08/10 0859 Bisacodyl 10 MG ONCE PRN 07/10 1200 AC RECTAL 08/09 1159 Magnesium Hydroxide 30 ML ONCE PRN 07/10 1200 AC PO Atorvastatin Calcium 40 MG 2100 07/09 2100 AC PO 08/08 2059 Clopidogrel Bisulfate 75 MG DAILY 07/09 09 AC 07/09 PO 08/08 0859 0909 Polyethylene Glycol 17 GM DAILY 07/09 0900 AC 0 07/09 PO 08/08 0859 0910 Miscellaneous 1 EACH ASDIR 07/09 0730 AC Information MISC 08/08 0729 Calcium Chloride 1 GM ASDIR PRN 07/09 0700 AC Sodium Chloride 100 ML IV 08/08 0659 Calcium Chloride 2 GM ASDIR PRN 07/09 0700 AC Sodium Chloride 100 ML IV 08/08 0659 Magnesium Sulfate 100 ML ASDIR PRN 07/09 0700 A C IV 08/08 0659 Magnesium Sulfate 50 ML ASDIR PRN 07/09 0700 AC IV 08/08 0659 Miscellaneous 5,000 ML ASDIR 07/09 0700 AC DIALYSIS 08/08 0659 Potassium Chloride 50 ML ASDIR PRN 07/09 0700 A C IV 08/08 0659 Sodium Chloride 2,000 ML ASDIR PRN 07/09 0700 A C IV 08/08 0659 Sodium Phosphate 25 MMOL ASDIR PRN 07/09 0700 A C Sodium Chloride 250 ML IV 08/08 0659 Sodium Phosphate 20 MMOL ASDIR PRN 07/09 0700 AC Sodium Chloride 250 ML IV 08/08 0659 Sodium Phosphate 15 MMOL ASDIR PRN 07/09 0700 A C Sodium Chloride 250 ML IV 08/08 0659 Pantoprazole 40 MG DAILY@0600 07/09 0600 AC PO 08/08 0559 0702 Aspirin 81 MG DAILY 07/09 0020 AC 07/09 PO 08/08 0019 0909 Vasopressin 100 ML ASDIR 07/09 0015 CKD IV 08/08 0014 Albumin Human 250 ML ONCE ONE 07/08 2345 DC IV 07/09 0014 0022 Glycopyrrolate 1 MG ONCE ONE 07/08 2145 DC 06/10 1 IV 07/08 214 2145 Neostigmine 5 MG ONCE ONE 07/08 2145 DC 07/08 Methylsulfate IV 07/08 2146 2145 Amiodarone HCl 200 MG TID 07/08 2100 AC 07/09 PO 08/07 2058 0909 Docusate Sodium 100 MG BID 07/08 2100 AC 07/09 PO 08/07 2058 0909 Gabapentin 200 MG BID 07/08 2100 AC 07/09 PO 07/13 0901 0909 Metoprolol Tartrate 12.5 MG Q12HR 07/08 2100 AC PO 08/07 2058 Mupirocin 1 APPLIC BID 07/08 2100 AC 07/09 NASAL 07/13 0901 0911 Sennosides 17.2 MG BEDTIME 07/08 2100 AC 07/09 PO 08/07 2058 002 Albumin Human 100 ML .STK-MED ONE 07/08 1920 DC IV Cefazolin Sodium 6 GM ONCE ONE 07/08 1899 CKD 0 07/08 Sodium Chloride 500 ML IV 07/09 145 202 Ipratropium Kersey 500 MCG RTQ4H 07/08 190 AC 07/09 INH 08/07 1859 0726 Acetaminophen 650 MG Q4H PRN PRN 07/08 1830 AC 07/09 PO 08/07 1829 0911 Acetaminophen 650 MG Q4H PRN PRN 07/08 1830 AC RECTAL 08/07 1829 Albumin Human 25 GM ASDIR PRN 07/08 183 AC IV 07/09 1820 2345 Calcium Chloride 1 GM ASDIR PRN 07/08 183 AC 0 07/08 IV / 1829 2027 Dextrose/Water 125 ML ASDIR PRN 07/08 183 CKD IV / 1829 Dextrose/Water 250 ML ASDIR PRN 07/08 1830 CKD IV / 1829 Epinephrine 4 MG ASDIR 07/08 183 AC Dextrose/Water 246 ML IV 08/07 1829 Glucagon 1 MG ASDIR PRN 07/08 183 AC IM 08/07 1829 Insulin Human Regular 100 UNIT ASDIR 07/08 183 CKD Sodium Chloride 99 ML IV 08/07 1829 Magnesium Sulfate 100 ML ASDIR PRN 07/08 183 A C IV 08/07 1829 Magnesium Sulfate 50 ML ASDIR PRN 07/08 183 AC IV / 1829 Magnesium Sulfate/ 100 ML ASDIR PRN 07/08 1830 AC 07/09 Dextrose IV 08/07 1829 0430 Morphine Sulfate 4 MG Q2H PRN PRN 07/08 1830 D C IV 07/13 1829 Nitroglycerin/ 250 ML ASDIR 07/08 183 AC Dextrose IV / 1829 Norepinephrine 250 ML TITRATE 07/08 183 AC Bitartrate IV 08/07 1829 Ondansetron HCl 4 MG Q6H PRN PRN 07/08 183 AC IV 08/07 1829 Oxycodone HCl 5 MG Q4H PRN PRN 07/08 1830 AC PO 07/13 1829 Oxycodone HCl 10 MG Q4H PRN PRN 07/08 1830 AC 0 07/09 PO 07/13 1829 0431 Potassium Chloride 100 ML ASDIR PRN 07/08 183 AC IV / 1829 Sodium Bicarbonate 50 MEQ ASDIR PRN 07/08 183 AC 07/09 IV 08/07 1829 0021 Sodium Chloride 1,000 ML .Q20H 07/08 1830 AC IV / 1829 Sodium Chloride 250 ML Q24H 07/08 1830 AC IV 08/07 1829 Rocuronium Kersey 0 .STK-MED ONE 07/08 1659 DC IV Sodium Chloride 100 ML .STK-MED ONE 07/08 1654 DC IV Calcium Chloride 0 .[facility]-MED ONE 07/08 1644 DC IV Milrinone Lactate/ 100 ML .STK-MED ONE 07/08 16 44 DC Dextrose IV Sodium Chloride 10 ML .STK-MED ONE 07/08 1644 D C IV Vasopressin 0 .STK-MED ONE 07/08 1644 DC .ROUTE Vasopressin 0 .STK-MED ONE 07/08 1644 DC .ROUTE Isoflurane 0 .[facility]-MED ONE 07/08 1604 DC INH Sodium Chloride 100 ML .K-MED ONE 07/08 1537 DC IV Albumin Human 50 ML .[facility]-MED ONE 07/08 1525 DC IV Fentanyl Citrate 0 .[facility]-MED ONE 07/08 1255 DC IV Cefazolin Sodium 2 GM PREOP ONCALL 07/08 0500 D C IV 07/08 2359 Vancomycin HCl 1,250 MG PREOP ONCALL 07/08 0500 DC Sodium Chloride 250 ML IV 07/08 2359 Verapamil HCl 16.6 MG .Q24H ONE 07/08 0500 DC Heparin Sodium 1,660 UNIT IV 07/09 0459 (Porcine) Sodium Bicarbonate 0.7 ML Nitroglycerin/ 8.3 MG Dextrose Lactated Ringer's 949.5 ML Acetaminophen 1,000 MG PREOP ONCALL 07/07 2230 DC 07/08 PO 08/06 2229 1117 Gabapentin 200 MG PREOP ONCALL 07/07 2230 DC PO 08/06 2359 1117 Sodium Chloride 20 ML ASDIR 07/07 2230 DC IV 08/06 2229 Lidocaine HCl 2 ML PREOP ONCALL 07/06 2230 DC LOCAL 08/05 2359 Lidocaine HCl 2 ML PREOP ONCALL 07/06 2230 DC LOCAL 08/05 2359 Sodium Chloride 500 ML PREOP ONCALL 07/06 2230 DC IV 08/05 2359 Sodium Chloride 500 ML PREOP ONCALL 07/06 2230 DC IV 08/05 2359 Sodium Chloride 5 ML ASDIR PRN 07/06 2230 DC IV 08/05 2229 Sodium Chloride 10 ML ASDIR PRN 07/06 2230 DC IV 08/05 2229 Sodium Chloride 250 ML ASDIR PRN 07/06 2230 DC IV 08/05 2228 Bisacodyl 10 MG DAILY PRN PRN 07/06 09 DC RECTAL 08/05 09 Polyethylene Glycol 17 GM DAILY 07/06 09 DC 0 07/06 PO 08/05 0920 1130 Senna/Docusate Sodium 2 TAB DAILY 07/06 09 DC 07/06 PO 08/05 0920 1130 Atorvastatin Calcium 20 MG BEDTIME 07/03 2100 D C 07/07 PO 08/02 205 2152 Ceftriaxone Sodium 1,000 MG Q24H 07/03 1600 DC 07/07 Sodium Chloride 10 ML IV 07/08 1559 1646 Albumin Human 12.5 GM ASDIR PRN 07/03 1200 AC IV 08/03 1155 Heparin Sodium 3,000 UNIT ASDIR PRN 07/03 1200 AC 07/07 (Porcine) DIALYSIS 08/02 1159 1812 Lidocaine HCl 0.5 ML ASDIR PRN 07/03 1200 CKD I-DERMAL 08/03 1155 Mannitol 12.5 GM ASDIR PRN 07/03 1200 AC IV 08/03 1155 Sodium Chloride 2,000 ML ASDIR PRN 07/03 1200 A C 07/07 IV 08/03 1155 1813 Sodium Chloride 5 ML ASDIR PRN 07/03 1200 DC IV 08/02 1159 Sodium Chloride 10 ML ASDIR PRN 07/03 1200 DC 07/07 IV 08/02 1159 1815 Sodium Chloride 250 ML ASDIR PRN 07/03 1200 DC IV 08/02 1159 Aspirin 81 MG DAILY 07/03 0900 DC 07/08 PO 08/02 0859 0925 Metoprolol Tartrate 12.5 MG BID 07/03 0900 DC 0 07/08 PO 08/02 0859 0925 Tamsulosin HCl 0.4 MG BEDTIME 07/02 2145 AC PO 08/01 214 0020 Docusate Sodium 100 MG BID PRN PRN 07/02 2114 DC 07/06 PO 08/01 Labetalol HCl 10 MG Q6H PRN PRN 07/02 2114 DC IV 08/01 2113 Ondansetron HCl 4 MG Q4H PRN PRN 07/02 2114 DC IV 08/01 2113 24 hour I O ending at 0700: 07/09 0700 07/08 1900 Intake Total 2090.50 300 Output Total 480 300 Balance 1610.50 0 Intake, IV 1850.50 Intake, Oral 240 300 Intake, Oral 0 Supplement Number 0 Bowel Movements Output, Chest 330 Tube Drainage Output, Urine 150 300 Vital Signs: Date Time Temp Pulse Resp B/P B/P Pulse O2 O2 F low FiO2 Mean Ox Delivery Rate 07/09 0726 96 Nasal 3 cannula 07/09 0700 36.9 92 3 96/53 71 98 02/01 0630 36.9 95 16 93/55 70 97 02/01 0616 36.9 93 15 102/56 76 99 02/01 0600 36.9 93 13 100/54 74 98 02/01 0530 36.9 93 25 101/57 76 97 02/01 0500 36.8 95 26 97/55 72 98 02/01 0430 36.9 96 21 103/56 76 97 02/01 0400 36.8 100 25 102/54 74 97 02/01 0342 98 Nasal 4 cannula 07/09 0330 36.7 97 22 108/58 78 98 02/01 0312 36.7 97 22 106/57 79 99 02/01 0300 36.6 97 4 105/56 77 98 02/01 0230 36.6 97 21 102/55 74 100 02/01 0200 36.6 99 24 105/56 77 100 02/01 0100 36.6 99 23 106/50 72 100 02/01 0030 36.7 107 28 100/53 74 100 02/01 0000 36.7 107 14 97/54 72 100 07/08 2350 36.7 109 16 89/53 69 100 07/08 2330 36.7 112 27 84/49 63 100 07/08 2300 36.5 109 14 94/53 70 100 07/08 2230 36.4 114 15 100/51 69 100 07/08 2215 36.3 123 20 78/49 57 100 07/08 215 36.2 111 20 86/47 61 100 07/08 2150 36.2 111 17 90/55 69 99 07/08 2129 36.0 115 22 108/53 77 99 07/08 2124 111/50 65 07/08 2104 115 20 114/47 100 07/08 2100 35.8 117 22 126/63 88 99 07/08 2054 35.8 114 18 116/58 80 99 07/08 2053 35.8 114 17 119/58 83 100 07/08 2049 35.8 110 16 114/57 77 100 07/08 2044 114/49 65 07/08 2044 35.8 108 18 110/57 78 100 07/08 2039 115/48 64 07/08 2039 35.8 107 16 105/54 76 100 07/08 2034 121/49 66 07/08 2029 35.9 107 16 111/55 79 100 07/08 2019 35.9 104 16 111/58 80 100 07/08 2009 36.0 102 16 88/50 65 100 07/08 2004 36.0 102 16 105/55 75 100 07/08 1999 36.8 07/08 1999 36.1 103 17 106/55 77 100 07/08 1918 100 Ventilator 50 07/08 1918 99 100 50 PATIENT WEIGHT: Weight (lb): 185 Weight (oz): 3.01 Weight (kg): 84.000 Physical Exam General appearance: alert, awake, oriented, no a cute distress Head/Eyes: atraumatic, clear cornea ENT: moist mucosal membranes Neck: full range of motion, no JVD Cardiovascular: CV assessment: regular rate and rhythm, no murm ur Respiratory: decreased breath sounds, no distres s Abdomen: soft, non-tender, normal bowel sounds, no distention, no guarding Genitourinary: urinary catheter, urine Upper extremity: UE assessment: normal temperature, no edema Lower extremity: LE assessment: normal temperature, no edema 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: alert, oriented X 3, normal speech Psychiatry: normal affect Results Radiology data: Recent Impressions: RADIOLOGY - XR CHEST 1 V 07/08 1919 Report Impression - Status: SIGNED Entered: 07/08/20221957 IMPRESSION: Postoperative change with minimal vascular conge stion and bibasilar pulmonary opacities. Impression By: Noreen Perdue RADIOLOGY - XR CHEST 1 V 07/09 0615 Report Impression - Status: SIGNED Entered: 07/09/2022 0956 IMPRESSION: 1. Stable pulmonary opacities likely combination of airspace disease and atelectasis. 2. Stable left basilar pleuroparenchymal changes with small volume pleural effusions. 3. Stable postoperative cardiomediastinal silhou ette. Impression By: Mario Cheng.D. Diagnosis, Assessment Plan Problem List/A P: 1. HTN (hypertension) 2. CLAUDETTE (acute kidney injury) 3. CAD (coronary artery disease) 4. Dyslipidemia 5. BPH (benign prostatic hyperplasia) Consultants: cardiology, cardiovascular surgery, nephrology Free Text DxA P Notes Free Text DxA P Notes: Mr. Arce is a pleasant 81 y/o M w/ PMHx: HTN, HLD presented to [facility] on 06/28/22 for chest pa in and sob. He was diagnosed NSTEMI w/ Trop was peaked 7600's, EKG w/ normal ST and CLAUDETTE w/ Cr 14 on admission. He underwent LHC on 07/[address] Layne which showed severe mLM 70% stenosis, pLAD diffuse 80% stenosis, mLA D 60% and focal 70% stenosis; pLCx 80% stenosis, dLCx 70% stenosis, pOM 60% stenosis; p RCA 40% stenosis, mRCA 60% stenosis and diffuse 50-60% dRCA. He transferred to [facility] ED for CABG. - CAD/NSTEMI. Per CTS. s/p LHC: multivessel disease. On statins, BB, ASA, plavix- as tolerated Echo: LVEF 30-34%, repeat echo prior to dc s/p CABG, on pressors, anemia s/p PRBCs, post-o p per CTS continue supportive care, will follow - Acute Systolic HF with ischemic CMP LVEF 30-34 % strict I/Os, daily weights, fluid restriction, low NA diet diuresis as needed per Nephrology no charly/arb/aldactone due to CLAUDETTE GDMT on discharge follow post-op - CLAUDETTE. HD Per nephro. likly from obstructive uropathy. s/p waters cath. Renal ultrasound showed severe thickening of th e bladder, cholelitiasis. - HTN. hypotension post-op- on pressors - HLD. On statins. - Anemia. monitor post-op continue supportive care Electronically Signed by Jyoti Browning NP on 0 07/09/22 at 1249 Electronically Signed by Liset Ennis MD on at 1738 RPT #:[id number] END OF REPORT 2022-07-09 07:05:00-00:00 [facility] Critical Care Progress Note REPORT#:[id number] REPORT STATUS: Signed DATE:07/09/22 TIME: 704 PATIENT: SHERRI ARCE UNIT #: [id number] ROOM/BED: 2202-1 : 42 AGE: 81 SEX: M ATTEND: Radha Ward ADM AUTHOR: Edwardo Flannery MD * ALL edits or amendments must be made on the el [employer]/computer document * Subjective Chief complaint: CABG HPI: This is 81 years old male with medical history s ignificant for HTN and dyslipidemia [facility] with [facility] pain and found to have a NSTEMI and also acute r enal failure. He underwent cardiac cath and was found to have sever e CAD including left main disease with EF of 30 to 35% and ischemic cardiomyopathy. Transfer here for CABG evaluation. CV surgery were consulted an d the patient earlier today underwent CABG x 5 (MISTRY -LAD, SVG-Ladonna, SVG-OM1< SVG-OM3, SVG-PDA) and AL AA. His intraoperative course was without significant occurrence. The patient was brought to CVICU intubated and ventilated on milrinone drip, norepinephrine drip, epinephrine drip and vasopressin drip. His initial ABG showed metabolic acidosi s and he received 2 A of sodium bicarb and 1 g of calcium. The patient started to wake up later in the even ing but he looked weak, so he was reversed with neostigmine and glycopyrrolate . His motor strength improved significantly after that and his spontaneous lenard athing trial was good on the following ABG showed some metabolic acid osis. The patient will be extubated to a BiPAP as his CO2 was high on the ABG. Comments: extubated postop last night UOP minimal, 150 cc CTs output 190 and 140 cc on insulin, vasopressin and epinephrine gtt off levophed and milrinone gtt CI 3.6, SvO2 67%, CVP 7 Objective General VS/I O Last Documented: Result Date Time Pulse Ox 98 07/09 341 O2 Delivery Nasal cannula 07/09 341 O2 Flow Rate 4 07/09 0342 B/P 114/47 07/08 2104 Pulse 115 07/08 2104 Resp 20 07/08 2104 Temp 98.2 07/08 2000 FiO2 50 07/08 1919 B/P Mean 74 07/08 1105 24 hour I O ending at 0700: 07/09 0700 07/08 1900 Intake Total 300 Output Total 300 Balance 0 Intake, Oral 300 Intake, Oral 0 Supplement Number 0 Bowel Movements Output, Urine 300 PATIENT WEIGHT: Weight (lb): 185 Weight (oz): 3.01 Weight (kg): 84.000 Medications: Active Meds + DC'd Last 24 Hrs Ipratropium [place] (ATROVENT) 500 MCG RTQ2H PRN PRN INH Cyanocobalamin (Vitamin B-12 500 mcg tab) 500 MC G DAILY PO Ferrous Sulfate (FERROUS SULFATE) 325 MG DAILY P O Bisacodyl (DULCOLAX) 10 MG ONCE PRN RECTAL Magnesium Hydroxide (MILK OF MAGNESIA) 30 ML ONC E PRN PO Atorvastatin Calcium (LIPITOR) 40 MG 2100 PO Clopidogrel Bisulfate (Plavix) 75 MG DAILY PO Polyethylene Glycol (MIRALAX) 17 GM DAILY PO Calcium Chloride (CALCIUM CHLORIDE) 1 GM ASDIR P RN IV (UNV) Sodium Chloride (SODIUM CHLORIDE 0.9%) 100 ML Calcium Chloride (CALCIUM CHLORIDE) 2 GM ASDIR P RN IV (UNV) Sodium Chloride (SODIUM CHLORIDE 0.9%) 100 ML Magnesium Sulfate (MAGNESIUM SULFATE 4GM/SWFI 10 0ML) 100 ML ASDIR PRN IV (UNV) Magnesium Sulfate (MAGNESIUM SULFATE 2GM/SWFI 50 ML) 50 ML ASDIR PRN IV ( UNV) Miscellaneous (PRISMASATE BGK 4/2.5 SOLUTION) 5, 000 ML ASDIR DIALYSIS ( PEND) Potassium Chloride (KCL 10MEQ/SWFI 50ML) 50 ML A SDIR PRN IV Sodium Chloride (SODIUM CHLORIDE 0.9%) 2,000 ML ASDIR PRN IV Sodium Phosphate (SODIUM PHOSPHATE) 25 MMOL ASDI R PRN IV (UNV) Sodium Chloride (SODIUM CHLORIDE 0.9%) 250 ML Sodium Phosphate (SODIUM PHOSPHATE) 20 MMOL ASDI R PRN IV (UNV) Sodium Chloride (SODIUM CHLORIDE 0.9%) 250 ML Sodium Phosphate (SODIUM PHOSPHATE) 15 MMOL ASDI R PRN IV (UNV) Sodium Chloride (SODIUM CHLORIDE 0.9%) 250 ML Pantoprazole (PROTONIX) 40 MG DAILY@0600 PO Aspirin (ASPIRIN) 81 MG DAILY PO Vasopressin (VASOSTRICT 20 Unit/NS 100ML) 100 ML ASDIR IV (CKD) Albumin Human (ALBUMINAR 5% 12.5GM/250ML) 250 ML ONCE ONE IV (DC) Glycopyrrolate (GLYCOPYRROLATE) 1 MG ONCE ONE IV (DC) Neostigmine Methylsulfate (PROSTIGMIN) 5 MG ONCE ONE IV (DC) Amiodarone HCl (CORDARONE) 200 MG TID PO Docusate Sodium (COLACE) 100 MG BID PO Gabapentin (NEURONTIN) 200 MG BID PO Metoprolol Tartrate (LOPRESSOR) 12.5 MG Q12HR PO Mupirocin (BACTROBAN 2% 22 GM OINTMENT) 1 APPLIC BID NASAL Sennosides (Senna Lax 8.6 MG TABLET) 17.2 MG BED TIME PO Albumin Human (ALBUMINAR-25%) 100 ML .STK-MED ON E IV (DC) Cefazolin Sodium (KEFZOL OR ANCEF) 6 GM ONCE ONE IV (CKD) Sodium Chloride (SODIUM CHLORIDE 0.9%) 500 ML Ipratropium Kersey (ATROVENT) 500 MCG RTQ4H INH Acetaminophen (TYLENOL) 650 MG Q4H PRN PRN PO Acetaminophen (TYLENOL) 650 MG Q4H PRN PRN RECTA L Albumin Human (ALBUMINAR 25%) 25 GM ASDIR PRN IV Calcium Chloride (CALCIUM CHLORIDE) 1 GM ASDIR P RN IV Dextrose/Water (DEXTROSE 10% IN WATER) 125 ML DIR PRN IV (CKD) Dextrose/Water (DEXTROSE 10% IN WATER) 250 ML DIR PRN IV (CKD) Epinephrine (ADRENALIN CHLORIDE) 4 MG ASDIR IV Dextrose/Water (DEXTROSE 5% WATER) 246 ML Glucagon (GLUCAGON) 1 MG ASDIR PRN IM Insulin Human Regular (HumuLIN R) 100 UNIT ASDIR IV (CKD) Sodium Chloride (SODIUM CHLORIDE 0.9%) 99 ML Magnesium Sulfate (MAGNESIUM SULFATE 4GM/SWFI 10 0ML) 100 ML ASDIR PRN IV Magnesium Sulfate (MAGNESIUM SULFATE 2GM/SWFI 50 ML) 50 ML ASDIR PRN IV Magnesium Sulfate/Dextrose (MAGNESIUM SULFATE 1G M/D5W 100ML) 100 ML ASDIR PRN IV Morphine Sulfate (morphine SULFATE) 4 MG Q2H PRN PRN IV Nitroglycerin/Dextrose (NITROGLYCERIN 50,000MCG/ D5W 250ML) 250 ML ASDIR IV Norepinephrine Bitartrate (NOREPINEPHRINE 8 MG/N S 250 ML) 250 ML TITRATE IV Ondansetron HCl (ZOFRAN) 4 MG Q6H PRN PRN IV Oxycodone HCl (ROXICODONE) 5 MG Q4H PRN PRN PO Oxycodone HCl (ROXICODONE) 10 MG Q4H PRN PRN PO Potassium Chloride (KCL 20MEQ/SWFI 100ML) 100 ML ASDIR PRN IV Sodium Bicarbonate (SODIUM BICARBONATE) 50 MEQ A SDIR PRN IV Sodium Chloride (SODIUM CHLORIDE 0.9%) 1,000 ML .Q20H IV Sodium Chloride (SODIUM CHLORIDE 0.9%) 250 ML Q2 4H IV Rocuronium Kersey (ZEMURON) 0 .STK-MED ONE IV ( DC) Sodium Chloride (SODIUM CHLORIDE 0.9%) 100 ML .S TK-MED ONE IV (DC) Calcium Chloride (CALCIUM CHLORIDE) 0 .STK-MED O NE IV (DC) Milrinone Lactate/Dextrose (MILRINONE 20MG/D5W 1 00ML) 100 ML .STK-MED ONE IV (DC) Sodium Chloride (SODIUM CHLORIDE) 10 ML .STK-MED ONE IV (DC) Vasopressin (VASOSTRICT) 0 .STK-MED ONE .ROUTE ( DC) Vasopressin (VASOSTRICT) 0 .STK-MED ONE .ROUTE ( DC) Isoflurane (FORANE) 0 .STK-MED ONE INH (DC) Sodium Chloride (SODIUM CHLORIDE 0.9%) 100 ML .S TK-MED ONE IV (DC) Albumin Human (ALBUMINAR-25%) 50 ML .STK-MED ONE IV (DC) Fentanyl Citrate (SUBLIMAZE) 0 .STK-MED ONE IV ( DC) Midazolam HCl (VERSED) 0 .STK-MED ONE .ROUTE (DC ) Papaverine HCl (PAPAVERINE HCL) 0 .STK-MED ONE I V (DC) Albumin Human (ALBUMINAR-25%) 100 ML .STK-MED ON E IV (DC) Heparin Sodium (HEPARIN SODIUM) 0 .STK-MED ONE . ROUTE (DC) Mannitol (Mannitol 20%) 500 ML .STK-MED ONE IV ( DC) Sodium Chloride (SODIUM CHLORIDE 0.9%) 100 ML .S TK-MED ONE IV (DC) Lidocaine HCl (XYLOCAINE IV) 0 .STK-MED ONE IV ( DC) Magnesium Sulfate (MAGNESIUM SULFATE) 0 .STK-MED ONE IV (DC) Phenylephrine HCl (SWETA-SYNEPHRINE 10MG/ML AMP) 0 .STK-MED ONE .ROUTE (DC ) Sodium Bicarbonate (SODIUM BICARBONATE) 0 .STK-M ED ONE IV (DC) Cefazolin Sodium (KEFZOL OR ANCEF) 0 .STK-MED ON E .ROUTE (DC) Epinephrine HCl (EPINEPHrine 4 mg/D5W 250 mL) 25 0 ML .STK-MED ONE IV (DC ) Insulin Human Regular (HumuLIN R 100 UNITS/NS 10 0ML) 100 ML .STK-MED ONE IV (DC) Nitroglycerin/Dextrose (NITROGLYCERIN 50,000MCG/ D5W 250ML) 250 ML .STK-MED ONE IV (DC) Norepinephrine Bitartrate (NOREPINEPHRINE 8 MG/N S 250 ML) 250 ML .STK-MED ONE IV (DC) Magnesium Sulfate (MAGNESIUM SULFATE) 0 .STK-MED ONE .ROUTE (DC) Protamine Sulfate (PROTAMINE SULFATE) 0 .STK-MED ONE IV (DC) Ropivacaine (NAROPIN 0.5% 150 MG/30mL) 0 .STK-M ED ONE .ROUTE (DC) Aminocaproic Acid (AMICAR) 0 .STK-MED ONE IV (DC ) Heparin Sodium (HEPARIN SODIUM) 0 .STK-MED ONE . ROUTE (DC) Dexamethasone Sodium Phosphate (DECADRON) 0 .STK -MED ONE .ROUTE (DC) Lidocaine HCl (XYLOCAINE) 0 .STK-MED ONE .ROUTE (DC) Ondansetron HCl (ZOFRAN) 0 .STK-MED ONE .ROUTE ( DC) Rocuronium [place] (ZEMURON) 0 .STK-MED ONE IV ( DC) Cefazolin Sodium (KEFZOL OR ANCEF) 2 GM PREOP IVF EMBRYOLOGIST IV (DC) Vancomycin HCl (VANCOMYCIN HCL) 1,250 MG PREOP O NCALL IV (DC) Sodium Chloride (SODIUM CHLORIDE 0.9%) 250 ML Verapamil HCl (ISOPTIN) 16.6 MG .Q24H ONE IV (DC ) Heparin Sodium (Porcine) (HEPARIN SODIUM) 1,660 UNIT Sodium Bicarbonate (SODIUM BICARBONATE) 0.7 ML Nitroglycerin/Dextrose (NITROGLYCERIN 50MG/D5W 250ML) 8.3 MG Lactated Ringer's (LACTATED RINGERS) 949.5 ML Acetaminophen (TYLENOL EXTRA STRENGTH) 1,000 MG PREOP ONCALL PO (DC) Gabapentin (NEURONTIN) 200 MG PREOP ONCALL PO (D C) Sodium Chloride (SODIUM CHLORIDE) 20 ML ASDIR IV (DC) Lidocaine HCl (LIDOCAINE HCL/PF) 2 ML PREOP ONCA LL LOCAL (DC) Lidocaine HCl (LIDOCAINE HCL/PF) 2 ML PREOP ONCA LL LOCAL (DC) Sodium Chloride (SODIUM CHLORIDE 0.9%) 500 ML NV EOP ONCALL IV (DC) Sodium Chloride (SODIUM CHLORIDE 0.9%) 500 ML NV EOP ONCALL IV (DC) Sodium Chloride (SODIUM CHLORIDE) 5 ML ASDIR PRN IV (DC) Sodium Chloride (SODIUM CHLORIDE) 10 ML ASDIR NV N IV (DC) Sodium Chloride (SODIUM CHLORIDE 0.9%) 250 ML DIR PRN IV (DC) Bisacodyl (DULCOLAX) 10 MG DAILY PRN PRN RECTAL (DC) Polyethylene Glycol (MIRALAX) 17 GM DAILY PO (DC ) Senna/Docusate Sodium (SENOKOT S) 2 TAB DAILY PO (DC) Atorvastatin Calcium (LIPITOR) 20 MG BEDTIME PO (DC) Ceftriaxone Sodium (ROCEPHIN 1000MG VIAL) 1,000 MG Q24H IV (DC) Sodium Chloride (SODIUM CHLORIDE) 10 ML Albumin Human (ALBUMINAR-25%) 12.5 GM ASDIR PRN IV Heparin Sodium (Porcine) (HEPARIN SODIUM) 3,000 UNIT ASDIR PRN DIALYSIS Lidocaine HCl (LIDOCAINE HCL/PF) 0.5 ML ASDIR NV N I-DERMAL (CKD) Mannitol (Mannitol 20%) 12.5 GM ASDIR PRN IV Sodium Chloride (SODIUM CHLORIDE 0.9%) 2,000 ML ASDIR PRN IV Sodium Chloride (SODIUM CHLORIDE) 5 ML ASDIR PRN IV (DC) Sodium Chloride (SODIUM CHLORIDE) 10 ML ASDIR NV N IV (DC) Sodium Chloride (SODIUM CHLORIDE 0.9%) 250 ML DIR PRN IV (DC) Aspirin (ASPIRIN) 81 MG DAILY PO (DC) Metoprolol Tartrate (LOPRESSOR) 12.5 MG BID PO ( DC) Tamsulosin HCl (Flomax 0.4 mg) 0.4 MG BEDTIME PO Docusate Sodium (COLACE) 100 MG BID PRN PRN PO (DC) Labetalol HCl (LABETALOL HCL) 10 MG Q6H PRN PRN IV (DC) Ondansetron HCl (ZOFRAN) 4 MG Q4H PRN PRN IV (DC ) Results Findings/data: Laboratory Tests 07/09 07/09 07/08 07/08 0333 0306 3983 [id number] Blood Gas Puncture Site [place] Art Line Art Line Art L ine O2 Saturation (90 - 100 %) 93.0 97.7 97.3 ABG pH (7.35 - 7.45) 7.310 L 7.299 *L 7.273 *L ABG pCO2 (35.0 - 45 mmHg) 42.8 41.3 46.4 H ABG pO2 (80 - 100.0 mmHg) 73.2 L 109.2 H 103.4 H ABG HCO3 (22.0 - 26.0 MMOL/L) 21.5 L 20.3 L 21. 6 L ABG Total CO2 22.8 21.5 23.1 ABG Base Excess (-4.0 - 4.0 MMOL/L) -4.7 L -6.2 L -5.4 L ABG Hematocrit (37.5 - 50.7 %) 19 L 21 L 23 L 2 6 L ABG Hemoglobin (12.5 - 16.9 G/DL) 6.5 L 7.0 L 7 .7 L 8.7 L Marylu Test N/A N/A N/A N/A VBG pH (7.33 - 7.45) 7.277 L VBG pCO2 (43 - 47 mmHg) 45.0 VBG pO2 (10 - 50 mmHG) 35.4 VBG HCO3 (22 - 27 MMOL/L) 21.0 L POC VBG Total CO2 22.4 VBG O2 Saturation (60 - 80 %) 60.2 VBG Base Excess (-4.0 - 4.0 MMOL/L) -5.8 L VBG Temperature (F) 98.6 Sodium (134 - 147 mmol/L) 147 146 148 H 146 Potassium (3.4 - 5.0 mmol/L) 4.1 4.1 3.5 3.9 Chloride (100 - 108 mmol/L) 112 H 110 H 114 H 1 13 H Ionized Calcium (1.12 - 1.32 1.20 1.23 1.18 1.2 9 MMOL/L) Lactic Acid (0.9 - 1.7 mmol/l) 5.9 *H 6.1 *H 5. 1 *H 3.6 H Temperature (F) 98.6 98.6 97.2 O2 Delivery Device Cannula Cannula Cannula Adul t Vent Vent Mode PS PEEP (cmH2O) 5 Pressure Support (cmH2O) 07/086 1934 1843 1748 Blood Gas Puncture Site [place] Art Line O2 Saturation (90 - 100 %) 97.7 99.9 100.0 ABG pH (7.35 - 7.45) 7.263 *L 7.313 L 7.432 ABG pCO2 (35.0 - 45 mmHg) 44.1 36.8 33.6 L ABG pO2 (80 - 100.0 mmHg) 111.1 H 375.0 *H 404. 5 *H ABG PO2/FiO2 Ratio (mm/Hg) 222.20 ABG HCO3 (22.0 - 26.0 MMOL/L) 20.1 L 18.7 L 22. 4 ABG Total CO2 21.5 19.8 23.4 ABG Base Excess (-4.0 - 4.0 -7.1 L -6.9 L -1.6 MMOL/L) ABG Hematocrit (37.5 - 50.7 %) 23 L 24 L 22 L 23 L ABG Hemoglobin (12.5 - 16.9 G/DL) 8.0 L 8.3 L 7 .5 L 7.7 L Marylu Test N/A VBG pH (7.33 - 7.45) 7.265 L VBG pCO2 (43 - 47 mmHg) 48.5 H VBG pO2 (10 - 50 mmHG) 41.1 VBG HCO3 (22 - 27 MMOL/L) 22.3 POC VBG Total CO2 23.9 VBG O2 Saturation (60 - 80 %) 72.4 VBG Base Excess (-4.0 - 4.0 -4.9 L MMOL/L) VBG Temperature (F) 96.4 Sodium (134 - 147 mmol/L) 148 H 146 147 144 Potassium (3.4 - 5.0 mmol/L) 3.6 3.9 3.7 5.0 Chloride (100 - 108 mmol/L) 115 H 114 H 117 H 109 H Ionized Calcium (1.12 - 1.32 1.26 1.18 1.06 L 1 .03 L MMOL/L) Lactic Acid (0.9 - 1.7 mmol/l) 2.5 H 2.1 H 2.5 H 1.8 H Temperature (F) 97.3 Respiration Rate (/min) 16 O2 Delivery Device Adult Vent Adult Vent Vent Mode SIMV AC Vent Rate (/MIN) 16 FiO2 (%) 50 50 Tidal Volume (ml) 450 450 PEEP (cmH2O) 5 5 07/08 07/08 07/08 07/08 1719 1641 1548 1449 Blood Gas O2 Saturation (90 - 100 %) 99.9 100.0 100.0 100 .0 ABG pH (7.35 - 7.45) 7.401 7.355 7.262 *L 7.330 L ABG pCO2 (35.0 - 45 mmHg) 33.4 L 43.3 49.5 H 40 .0 ABG pO2 (80 - 100.0 mmHg) 327.7 *H 469.8 *H 45 8.7 *H 487.7 *H ABG HCO3 (22.0 - 26.0 MMOL/L) 20.7 L 24.2 22.3 21.1 L ABG Total CO2 21.7 25.5 23.8 22.3 ABG Base Excess (-4.0 - 4.0 MMOL/L) -3.6 -1.3 - 4.8 L -4.5 L ABG Hematocrit (37.5 - 50.7 %) 25 L 25 L 32 L 3 3 L ABG Hemoglobin (12.5 - 16.9 G/DL) 8.6 L 8.4 L 1 0.8 L 11.3 L Sodium (134 - 147 mmol/L) 142 142 144 147 Potassium (3.4 - 5.0 mmol/L) 4.7 4.6 4.1 4.2 Chloride (100 - 108 mmol/L) 110 H 108 111 H 112 H Ionized Calcium (1.12 - 1.32 MMOL/L) 1.04 L 1.0 6 L 1.15 1.11 L Lactic Acid (0.9 - 1.7 mmol/l) 1.2 0.6 L 0.8 L < 0.3 L Laboratory Tests 07/09 07/09 07/09 07/09 07/09 0333 0306 0300 0300 0233 Chemistry Sodium (134 - 147 mEq/L) 149 H Potassium (3.4 - 5.0 mEq/L) 4.3 Chloride (100 - 108 mEq/L) 111 H Carbon Dioxide (21 - 33 mEq/l) 23 Anion Gap (0 - 20) 20 BUN (7 - 18 mg/dL) 38 H Creatinine (0.6 - 1.3 mg/dL) 4.6 H POC Creatinine (0.8 - 1.3 mg/dL) 4.4 H 4.4 H Glomerular Filtr Rate (70 - 80) 12.3 L Glucose (70 - 110 mg/dL) 241 H POC Glucose (70 - 110 MG/DL) 230 H POC Glucose (mg/dL) (70 - 110 MG/DL) 229 H 245 H Lactic Acid (0.4 - 1.9 mmol/L) 6.0 *H Calcium (8.0 - 10.5 mg/dL) 8.9 Magnesium (1.80 - 2.40 mg/dL) 2.45 H Total Bilirubin (0.0 - 1.0 mg/dL) 0.20 Direct Bilirubin (0.0 - 0.30 MG/DL) 0.10 Indirect Bilirubin (MG/DL) 0.10 AST (15 - 37 IUnit/L) 46 H ALT (30 - 65 IUnit/L) 15 L Total Alk Phosphatase (20 - 125 40 IUnit/L) Total Protein (6.4 - 8.2 g/dL) 5.5 L Albumin (3.4 - 5.0 g/dL) 3.60 07/09 07/08 07/08 07/08 07/08 0124 2335 2234 2151 2046 Chemistry POC Creatinine (0.8 - 1.3 mg/dL) 4.1 H 3.9 H 3. 9 H POC Glucose (mg/dL) (70 - 110 MG/DL) 234 H 206 H 190 H Lactic Acid (0.4 - 1.9 mmol/L) 6.6 *H 5.0 *H 07/08 1940 1934 1843 1748 Chemistry Sodium (134 - 147 mEq/L) 148 H Potassium (3.4 - 5.0 mEq/L) 4.0 Chloride (100 - 108 mEq/L) 114 H Carbon Dioxide (21 - 33 mEq/l) 22 Anion Gap (0 - 20) 16 BUN (7 - 18 mg/dL) 37 H Creatinine (0.6 - 1.3 mg/dL) 4.1 H POC Creatinine (0.8 - 1.3 mg/dL) 3.9 H 3.9 H 4. 0 H Glomerular Filtr Rate (70 - 80) 14.1 L Glucose (70 - 110 mg/dL) 197 H POC Glucose (mg/dL) (70 - 110 MG/DL) 201 H 181 H 171 H Lactic Acid (0.4 - 1.9 mmol/L) 2.1 H Calcium (8.0 - 10.5 mg/dL) 7.6 L Magnesium (1.80 - 2.40 mg/dL) 2.53 H 07/08 07/08 07/08 07/08 1719 1641 1548 1449 Chemistry POC Creatinine (0.8 - 1.3 mg/dL) 4.3 H 4.0 H 4. 6 H 4.0 H POC Glucose (mg/dL) (70 - 110 MG/DL) 171 H 169 H 141 H 88 Laboratory Tests 07/080 1845 1750 1721 Coagulation INR (0.8 - 1.2) 1.5 H PTT ([place]) (25.0 - 39.5 Seconds) 31.3 PT Patient/Control Mix (9.3 - 12.9 SECONDS) 16. 2 H Activated Coag Time (74 - 137 SEC) 143 H 522 H 636 H 07/08 07/08 07/08 1643 1550 1452 Coagulation Activated Coag Time (74 - 137 SEC) 648 H 606 H 137 Laboratory Tests 07/09 07/08 0300 1940 Hematology WBC (4.5 - 11.0 x10 3/uL) 24.9 H 39.6 H RBC (4.00 - 5.60 x10 6/uL) 2.13 L 2.45 L Hgb (12.5 - 16.9 g/dL) 6.5 L 7.6 L Hct (37.5 - 50.7 %) 21.5 L 24.6 L MCV (81.0 - 99.0 fL) 100.9 H 100.4 H MCH (27.0 - 33.0 pg) 30.5 31.0 MCHC (33.0 - 37.0 g/dL) 30.2 L 30.9 L RDW (11.5 - 14.5 %) 16.3 H 16.1 H Plt Count (150 - 400 x10 3/uL) 91 L 133 L MPV (7.0 - 9.0 fL) 11.3 H 11.1 H Neut % (Auto) (56.0 - 77.0 %) 90.8 H 87.8 H Lymph % (Auto) (14.0 - 32.0 %) 1.2 L 3.5 L [place] % (Auto) (4.8 - 9.0 %) 6.6 3.9 L Eos % (Auto) (0.3 - 3.7 %) 0.0 L 1.4 Baso % (Auto) (0.0 - 2.0 %) 0.2 0.3 Neut # (Auto) (2.0 - 7.6 x10 3/uL) 22.60 H 34.7 2 H Lymph # (Auto) (1.0 - 3.8 x10 3/uL) 0.31 L 1.40 [place] # (Auto) (0.1 - 0.8 x10 3/uL) 1.65 H 1.54 H Eos # (Auto) (0.0 - 0.2 x10 3/uL) 0.00 0.57 H Baso # (Auto) (0.0 - 0.2 x10 3/uL) 0.04 0.12 Abs Immat Gran (auto) (0.00 - 0.03 x10 3/uL) 0. 29 H 1.21 H Add Manual Diff NO NO Immature Gran % (0.0 - 2.0 %) 1.2 3.1 H Nucleated RBC % (0 - 0 %) 0.0 0.0 Nucleated RBCs # (Man) (0.0 - 0.1 x10 3/uL) 0.0 0 0.00 Platelet Estimate (ADEQUATE THOUSAND) 92 TO 115 Plt Morphology Comment LARGE PLATELETS Laboratory Tests 0201/23 0300: [Embedded Image Not Available] 07/08/22 1940: [Embedded Image Not Available] Microbiology: 07/07 2230 NASAL: MSSA Surveillance Screen - ORD 07/07 2230 NASAL: MRSA DNA Surveillance Screen - ORD 07/06 135 NASAL: MSSA Surveillance Screen - COM P 07/06 1350 NASAL: MRSA DNA Surveillance Screen - COMP Radiology data Recent Impressions: RADIOLOGY - XR CHEST 1 V 07/08 1919 Report Impression - Status: SIGNED Entered: 07/08/20221957 IMPRESSION: Postoperative change with minimal vascular conge stion and bibasilar pulmonary opacities. Impression By: Noreen Perdue Free Text Obj Notes Free Text Obj Notes: General appearance: Elderly male in no acute dis tress, interactive HEENT: atraumatic, normocephalic, moist mucosal membranes Neck: full range of motion, supple/no meningismu s Cardiovascular: S1-S2 regular rate and rhythm Respiratory: symmetric expansion, no acute respi ratory distress Abdomen: soft, non-tender, no distention, no gua rding Genitourinary: waters with minimal urine Extremities: pedal pulses palpable, moves all, n o cyanosis, mild LE edema Musculoskeletal: normal inspection, no muscle sp asm 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ALTH: alert and oriented, CNII-XII grossly intact, no motor deficits Skin: dry, intact and clean surgery dressing Diagnosis, Assessment Plan Problem list/A P: 1. CLAUDETTE (acute kidney injury) 2. CAD (coronary artery disease) 3. Goiter 4. BPH (benign prostatic hyperplasia) 5. Dyslipidemia 6. HTN (hypertension) Free text A P: 81/M with Acute pulmonary insufficiency following thoracic surgery Status post CABG x 5 (MISTRY-LAD, SVG-Ladonna, SVG-OM1 < SVG-OM3, SVG-PDA) and ALAA Acute blood loss anemia Hypotension Ischemic cardiomyopathy, EF 30 to 34% Multivessel CAD CLAUDETTE on hemodialysis Continue mechanical ventilation, vent settings r eviewed Titrate FiO2 to keep saturation more than 90%. Spontaneous breathing trial as soon as possible Wean to extubate Follow ABGs and CXRs ABG shows metabolic acidosis. Patient re ceived 2 A of sodium bicarb and 1 g of calcium Keep off sedation Judicious pain control Milrinone drip 0.25 Epinephrine drip Norepinephrine drip Vasopressin drip Titrate drips to keep MAP more than 65 Wean milrinone off first per CV surgery Minimize fluids per CV surgery Aspirin and Plavix Atorvastatin Metoprolol Follow lactate level Monitor chest tube output Hemodialysis per nephrology Monitor urine output and kidney function Monitor and replete electrolytes Perioperative antibiotics Cardiac diet with bowel regimen once extubated BG control with insulin gtt per protocol PT/OT VTE prophylaxis. Stress ulcer prophylaxis. Discussed with CV surgery, anesthesia and ICU te am Critical care time 85 minutes 07/09 Appears neuro intact, multimodal pain control, m inimize narcotic use, no CO2 narcosis Extubated successfully, sats well on NC, wean O2 , monitor for hypercapnia, encourage I-S, obtain serial ABGs, CXR reviewed HD unstable, weaning vasopre ssors and inotrope, monitor HD parameters, low CVP, lactic acidosis with uptrending lactate, gentle volume resuscitation Oliguric CLAUDETTE, plan for CRRT per renal, h yperkalemia treated, obtain serial lab PO challenge, bowel regimen, serial abdominal ex am, monitor LFTs Leukocytosis postop, likely reactive, trend WBC, s/p antibiotic course for UTI , periop antibiotics Hgb trending down, no eviden ce of active bleed, monitor CTs output, RBC given HD instability Blood glucose control with insulin drip per prot ocol Encourage PT/OT and activity as tolerated DVT and GI prophylaxis with DAPT and PPI Consultants: cardiology, cardiovascular surgery, nephrology Plan discussed with: patient , consultants, nurse, interdisc care team, pharmacy/ pharmacist Critical care time: Minutes: 39 Electronically Signed by Edwardo Flannery MD on 08/28 at 1500 RPT #:[id number] END OF REPORT 2022-07-09 04:53:00-00:00 [id number] [address] PATIENT NAME: SHERRI ARCE ADMIT DATE: 07/02/22 ACCOUNT NO: [id number] ROOM NO: [facility] AGE: 81 REPORT TYPE: eELECTROCARDIOGRAM REPORT SEX: M ADMITTING PHYSICIAN:Radha Ward MD ATTENDING PHYSICIAN:Radha Ward MD Order: [id number] Test Reason : POD 1 CABG 5 Test Date/Time Stamp: ThuJul 09 2022 04:53:06 Blood Pressure : / mmHG Vent. Rate : 096 BPM Atrial Rate : 096 BPM P-R Int : 184 ms QRS Dur : 124 ms QT Int : 416 ms P-R-T Axes : 074 045 089 degree s QTc Int : 525 ms Normal sinus rhythm Left bundle branch block Abnormal ECG When compared with ECG of 08-JUL-2022 19:54, No significant change was found Confirmed by MD ALEXIS GERARD ([id number]) on 6:44:16 AM Referred By: Self Referred Confirmed by:MAME PERALES MD Electronically Signed by Mame Alexis MD on 0 07/10/22 at 0644 PATIENT NAME: SHERRI ARCE 2022-07-08 19:54:00-00:00 [id number] [place] [address] PATIENT NAME: SHERRI ARCE ADMIT DATE: 07/02/22 ACCOUNT NO: [id number] ROOM NO: 220 AGE: 81 REPORT TYPE: eELECTROCARDIOGRAM REPORT SEX: M ADMITTING PHYSICIAN:Radha Ward MD ATTENDING PHYSICIAN:Radha Ward MD Order: [id number] Test Reason : CABGX5 Test Date/Time Stamp: ThuJul 08 2022 19:54:27 Blood Pressure : / mmHG Vent. Rate : 104 BPM Atrial Rate : 104 BPM P-R Int : 148 ms QRS Dur : 130 ms QT Int : 426 ms P-R-T Axes : 057 040 111 degree s QTc Int : 560 ms Sinus tachycardia Left bundle branch block Abnormal ECG When compared with ECG of 03-JUL-2022 07:17, Significant changes have occurred Confirmed by MD ALEXIS GERARD ([id number]) on 6:44:06 AM Referred By: Radha Ward Confirmed by:MAME ALEXIS MD Electronically Signed by Mame Alexis MD on 0 07/10/22 at 0644 PATIENT NAME: SHERRI ARCE 2022-07-08 19:39:00-00:00 [facility] Critical Care Consult Note REPORT#:[id number] REPORT STATUS: Signed DATE:07/08/22 TIME: 1938 PATIENT: SHERRI ARCE UNIT #: [id number] ROOM/BED: [place] [address] : 42 AGE: 81 SEX: M ATTEND: Radha Ward ADM AUTHOR: Wagner Viera MD * ALL edits or amendments must be made on the [email or web address] document * History of Present Illness HPI Chief complaint: Chest pain HPI: This is 81 years old male with medical history s ignificant for HTN and dyslipidemia [facility] with chest pain and found to have a NSTEMI and also acute r enal failure. He underwent cardiac cath and was found to have sever e CAD including left main disease with EF of 30 to 35% and ischemic cardiomyopathy. Transfer here for CABG evaluation. CV surgery were consulted an d the patient earlier today underwent CABG x 5 (MISTRY -LAD, SVG-Ladonna, SVG-OM1< SVG-OM3, SVG-PDA) and AL AA. His intraoperative course was without significant occurrence. The patient was brought to CVICU intubated and ventilated on milrinone drip, norepinephrine drip, epinephrine drip and vasopressin drip. His initial ABG showed metabolic acidosi s and he received 2 A of sodium bicarb and 1 g of calcium. The patient started to wake up later in the even ing but he looked weak, so he was reversed with neostigmine and glycopyrrolate . His motor strength improved significantly after that and his spontaneous lenard athing trial was good on the following ABG showed some metabolic acid osis. The patient will be extubated to a BiPAP as his CO2 was high on the ABG. History - Adult longitudinal Past medical history: Reports: Hypertension, Dyslipidemia. Additional surgical history: Denies Family history: Reports: Heart disease (parents and sibbling.). 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 CLAUDETTE (acute kidney injury) 2. CAD (coronary artery disease) 3. Goiter 4. BPH (benign prostatic hyperplasia) 5. Dyslipidemia 6. HTN (hypertension) Consultants: cardiology, cardiovascular surgery, nephrology Free text DxA P: Acute pulmonary insufficiency following thoracic surgery Status post CABG x 5 (MISTRY-LAD, SVG-Ladonna, SVG-OM1 < SVG-OM3, SVG-PDA) and ALAA Acute blood loss anemia Hypotension Ischemic cardiomyopathy, EF 30 to 34% Multivessel CAD CLAUDETTE on hemodialysis Continue mechanical ventilation, vent settings r eviewed Titrate FiO2 to keep saturation more than 90%. Spontaneous breathing trial as soon as possible Wean to extubate Follow ABGs and CXRs ABG shows metabolic acidosis. Patient re ceived 2 A of sodium bicarb and 1 g of calcium Keep off sedation Judicious pain control Milrinone drip 0.25 Epinephrine drip Norepinephrine drip Vasopressin drip Titrate drips to keep MAP more than 65 Wean milrinone off first per CV surgery Minimize fluids per CV surgery Aspirin and Plavix Atorvastatin Metoprolol Follow lactate level Monitor chest tube output Hemodialysis per nephrology Monitor urine output and kidney function Monitor and replete electrolytes Perioperative antibiotics Cardiac diet with bowel regimen once extubated BG control with insulin gtt per protocol PT/OT VTE prophylaxis. Stress ulcer prophylaxis. Discussed with CV surgery, anesthesia and ICU te am Critical care time 85 minutes Quality: Gen Med Crit Care VTE Prophylaxis VTE prophylaxis initiated: yes Current Medications Current medication review: I attest that the foregoing medication list in t he medical record is true, accurate, and complete to the best of my knowled ge. Advanced Care Plan 65 or Older Discussed with: patient Discussion included: living will (none), power of employment law attorney (none), code status ( full code) at [address] [facility] #:[id number] END OF REPORT 2022-07-08 19:10:00-00:00 [id number] [place] [id number] PATIENT NAME: SHERRI ARCE ADMIT DATE: 07/02/22 ACCOUNT NO: [id number] ROOM NO: [facility] AGE: 81 REPORT TYPE: OPERATIVE REPORT SEX: M ADMITTING PHYSICIAN:Srinath Kaur MD ATTENDING PHYSICIAN:Srinath Kaur MD OPERATION DATE: 07/08/2022 PREOPERATIVE DIAGNOSES: 1. Coronary artery disease. 2. Cardiomyopathy. 3. End-stage renal disease. POSTOPERATIVE DIAGNOSES: 1. Coronary artery disease. 2. Cardiomyopathy. 3. End-stage renal disease. PROCEDURES: 1. Coronary artery bypass graft surgery x 5 (lef t internal mammary artery to left anterior descending, saphenous vein to diag onal, saphenous vein to first marginal, saphenous vein to third marginal, saph enous vein to PDA). 2. Amputation of left atrial appendage. 3. Endoscopic vein harvest (right greater saphen ous vein). SURGEON: Lina Schwarz MD FOUR ROLL CALENDER OPERATOR: Renny Rodríguez MD ANESTHESIOLOGIST: Dr. Adams ANESTHESIA: General endotracheal anesthesia. ESTIMATED BLOOD LOSS: 100 mL INDICATIONS: Mr. Arce is a 81 -year-old gentleman with end-stage renal disease on hemodialysis and severe triple vessel coronary a rtery disease with severe cardiomyopathy. After due preop counseling, he w as brought to the operating room today for surgical revascularization. FINDINGS: 1. Vein was harvested from the right leg using e ndoscopic vein harvest technique. Vein was of marginal quality, measuri ng about 4 mm in size. 2. Normal sternum. 3. Good quality MISTRY measuring 2 mm in size with excellent flow. 4. 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 5. LAD 2 mm, good quality. 6. Diagonal 1.5 mm, diseased artery. PATIENT NAME: SHERRI ARCE 7. First marginal 1.5 mm, slightly diseased neena ry. 8. Third marginal 1.75 mm, slightly diseased art sunita. 9. PDA 2 mm, good quality artery. 10. Left atrial appendage was amputated half a c entimeter from the base. This was then repaired with two layers using running pledgeted 4-0 Prolene suture. PROCEDURE IN DETAIL: Mr. Arce was identified in t he preoperative holding area and brought to the operating room and placed sup ine on the operating table. After induction of general endotracheal anesthes ia, Waters catheter, radial arterial line, and antibiotics were placed. The patient's anterior torso and both lower extremities were prepped and draped i n standard surgical fashion. Vein was harvested from the right leg us ing endoscopic vein harvest technique. Following harvesting of the vein, subcutaneous tissue was closed with 2-0 Vicryl and the skin with 4-0 Vicryl. Simultaneously, me con sternotomy was performed and left internal mammary artery was harvested. The patient was heparinized. Pericardium was opened longitudinally. A pericar dial well was created. Intrapericardial adhesions were then taken down. Cardiopulmonary bypass was instituted using ascending aorta and 3-stage can nula in the right atrium. The patient was cooled to 34 degrees centigrade. Precision Layout Worker ssclamp was applied and the heart was arrested with 1.5 liters of antegrade cold blood cardioplegia. Cardioplegia was repeated at interval of 10 minutes all through the duration of crossclamp. We began by exploring the PDA. This was good quality artery measuring 2 mm in size. Arteriotomy was performe d with a Independence blade and extended with Reynoso scissors. A segment of previ ously harvested reverse saphenous vein was anastomosed in end-to -side manner using 7-0 Prolene suture. The vein graft to PDA was brought along the right side of the heart and sized. Aortotomy was performed on the right aspect of [facility] aorta using 4 mm punch. Proximal anastomosis of the PDA graft was then p erformed using running 6-0 Prolene suture. Next, a third margin was explored. This was a slightly disease artery measuring 1.75 mm in size. Arteriotomy was performed with a Independence blade and extended with Reynoso scissors. A segment of p reviously harvested reverse saphenous vein was anastomosed in end-to -side manner using 7-0 Prolene suture. The vein graft to the third margin was brought along the left side of the heart and sized. Aortotomy was performed on the left a spect of the aorta using 4 mm punch. Proximal anastomosis of the third margin graft was then performed using running 6-0 Prolene suture. Next, the le ft atrial appendage was amputated half a centimeter from the base. This was then repair ed with two layers of running pledgeted 4-0 Prolene suture. Next, the first ma rgin was explored. This was slightly diseased artery measuring 1.5 mm in siz e. Arteriotomy was performed with a Independence blade and extended with Reynoso scis sors. A segment of previously harvested reverse saphenous vein was anastomosed in end-to-side manner using running 7-0 Prolene suture. The vein graft to th e first margin was brought along the left side of the h eart and sized. Aortotomy was performed on the left aspect of the aorta using 4 mm punch. Pr oximal anastomosis of the first margin graft was then performed using running 6-0 Prole ne suture. Rewarming was commenced at this stage. Next, the diagonal was explored. This was a diseased artery measuring 1.5 mm in size. Arterio gracie was performed with a Independence blade and extended with Reynoso scissors. A segment of p reviously harvested reverse saphenous vein was anastomosed in end-to -side manner using 7-0 Prolene suture. The vein graft to diagonal was brought along the left side of the heart and sized. Aortotomy was performed on the left aspec t of the aorta using 4 mm punch. Proximal anastomosis of the diagonal crystal t was then performed using running 6-0 Prolene suture. Finally, the LAD was explored. This was a good quality artery measuring 2 mm in size. A rteriotomy was performed with a Marshal PATIENT NAME: SHERRI ARCE blade and extended with Reynoso scissors. MISTRY was anastomosed in end-to-side manner using running 8-0 Prolene suture. The PEÑALOZA A pedicle was tacked to epicardium using two interrupted 6-0 Prolene sut ure. A slit was made in the pericardium on the left aspect, so as to accommo date the MISTRY. Careful deaeration was performed and the cross-clamp was released. One ventricular wire was placed. A 28-Kinyarwanda chest tube was placed in the mediastinum, and a 28-angled chest tube placed in the left pleural space. Once the patient was at temperature, he was weaned off cardiopulmonary b ypass with some inotropic support. Heparin was reversed with protamine. De cannulation was uneventful. After confirming hemostasis, the chest was close d in layers using stainless steel wires for the sternum, #1 Vicryl for the f ascia, 2-0 Vicryl for the subcutaneous tissue, and 4-0 Vicryl for the skin.. The patient was transferred to intensive care unit, intubated in stable cond ition. Dictated By: Lina Schwarz MD Date Dictated: 07/08/2022 19:10:43 Date Transcribed: 07/08/2022 21:54:21 AC/SVR Receipt ID: [id number] Authenticated by Vinay Schwarz MD On 023 04:45:50 PM at 0445 PATIENT NAME: SHERRI ARCE 2022-07-08 19:00:00-00:00 [facility] ([facility] Brief Op Note REPORT#:[id number] REPORT STATUS: Signed DATE:07/08/22 TIME: 1899 PATIENT: SHERRI ARCE UNIT #: [id number] ROOM/BED: [place] [address] : 42 AGE: 81 SEX: M ATTEND: Radha Ward ADM AUTHOR: Lina Schwarz MD * ALL edits or amendments must be made on the el [employer]/computer document * Op/Inv Proc Note - Brief Pre-procedure diagnosis: CAD ESRD Post-procedure diagnosis: same as pre procedure dx Procedures performed: CABG x 5 (MISTRY-LAD, SVG-Ladonna, SVG-OM1< SVG-OM3, S VG-PDA) ALAA EVH (RGSV) Primary Surgeon: Chong General Forecaster(s): Niall Seth Findings: LAD-2mm Complications: none Estimated blood loss in ml's: 100 cc Specimens removed/altered: RONALDO at 1904 RPT #:[id number] END OF REPORT 2022-07-08 12:01:00-00:00 [facility] ([facility]) Nephrology Progress Note REPORT#:[id number] REPORT STATUS: Signed DATE:07/08/22 TIME: 1201 PATIENT: SHERRI ARCE UNIT #: [id number] ROOM/BED: [place] [address] : 42 AGE: 81 SEX: M ATTEND: Radha Ward ADM AUTHOR: Evelina Plaza MD * ALL edits or amendments must be made on the [email or web address] document * Subjective Chief complaint: came to see Mr. Arce, but he was in OR. Objective General VS/I O: Vital Signs: Date Time Temp Pulse Resp B/P B/P Pulse O2 O2 F low FiO2 Mean Ox Delivery Rate 02/01 1630 119/44 61 02/01 1630 95.7 65 23 96/54 69 94 02/01 1601 110/40 57 02/01 1601 96.3 67 26 98/54 70 94 02/01 1530 121/42 60 02/01 1530 96.6 68 23 102/58 77 96 02/01 1500 139/47 70 02/01 1500 97.3 71 24 122/60 85 96 02/01 1430 127/45 65 02/01 1430 98.1 72 23 115/56 80 97 02/01 1400 109/40 58 02/01 1400 98.6 75 27 107/57 78 96 02/01 1330 102/36 53 02/01 1330 98.6 74 23 96/55 73 97 02/01 1300 98/35 51 02/01 1300 98.6 76 24 94/53 71 97 02/01 1230 95/37 52 02/01 1230 98.6 78 24 90/55 70 98 02/01 1200 92/36 49 02/01 1200 98.8 80 25 85/47 61 97 02/01 1130 98/39 53 02/01 1130 98.8 82 27 87/50 63 98 02/01 1110 83/32 46 02/01 1110 84 31 72/42 51 02/01 1100 96/37 55 02/01 1100 98.8 82 33 91/50 63 99 02/01 1030 109/41 59 02/01 1030 98.6 83 9 100/57 75 99 02/01 1000 107/40 57 02/01 1000 98.6 84 6 94/52 67 97 02/01 0930 99/38 53 02/01 0930 98.6 85 22 88/53 66 96 02/01 0900 94/35 50 02/01 0900 98.6 89 27 86/52 64 95 02/01 0830 103/37 53 02/01 0830 98.6 89 0 94/52 69 96 02/01 0800 101/38 53 02/01 0800 98.6 90 5 92/53 67 98 02/01 0730 119/43 64 02/01 0730 98.6 96 34 96/57 70 96 02/01 0726 96 Nasal 3 cannula 02/01 0715 Nasal 4 cannula 02/01 0700 98.4 92 3 96/53 71 98 02/01 0630 98.4 95 16 93/55 70 97 02/01 0616 98.4 93 15 102/56 76 99 02/01 0600 98.4 93 13 100/54 74 98 02/01 0530 98.4 93 25 101/57 76 97 02/01 0500 98.2 95 26 97/55 72 98 02/01 0430 98.4 96 21 103/56 76 97 02/01 0400 98.2 100 25 102/54 74 97 02/01 0342 98 Nasal 4 cannula 02/01 0330 98.1 97 22 108/58 78 98 02/01 0312 98.1 97 22 106/57 79 99 02/01 0300 97.9 97 4 105/56 77 98 02/01 0230 97.9 97 21 102/55 74 100 02/01 0200 97.9 99 24 105/56 77 100 02/01 0100 97.9 99 23 106/50 72 100 02/01 0030 98.1 107 28 100/53 74 100 02/01 0000 98.1 107 14 97/54 72 100 07/08 2350 98.1 109 16 89/53 69 100 07/08 2330 98.1 112 27 84/49 63 100 07/08 2300 97.7 109 14 94/53 70 100 07/08 2230 97.5 114 15 100/51 69 100 07/08 2214 97.3 123 20 78/49 57 100 07/08 2154 97.2 111 20 86/47 61 100 07/08 2149 97.2 111 17 90/55 69 99 07/080 96.8 115 22 108/53 77 99 07/08 2124 111/50 65 07/08 2104 115 20 114/47 100 07/08 2099 96.4 117 22 126/63 88 99 07/08 2054 96.4 114 18 116/58 80 99 07/08 2053 96.4 114 17 119/58 83 100 07/08 2049 96.4 110 16 114/57 77 100 07/08 2044 114/49 65 07/08 2044 96.4 108 18 110/57 78 100 07/08 2039 115/48 64 07/08 2039 96.4 107 16 105/54 76 100 07/08 2034 121/49 66 07/08 2029 96.6 107 16 111/55 79 100 07/08 2019 96.6 104 16 111/58 80 100 07/08 2009 96.8 102 16 88/50 65 100 07/08 2004 96.8 102 16 105/55 75 100 07/08 1999 98.2 07/08 1999 97.0 103 17 106/55 77 100 07/08 1918 100 Ventilator 50 07/08 1918 99 100 50 24 hour I O ending at 0700: 07/09 0700 07/08 1900 Intake Total 2090.50 300 Output Total 480 300 Balance 1610.50 0 Intake, IV 1850.50 Intake, Oral 240 300 Intake, Oral 0 Supplement Number 0 Bowel Movements Output, Chest 330 Tube Drainage Output, Urine 150 300 PATIENT WEIGHT: Weight (lb): 185 Weight (oz): 3.01 Weight (kg): 84.000 Results Radiology data: Recent Impressions: RADIOLOGY - XR CHEST 1 V 07/08 1919 Report Impression - Status: SIGNED Entered: 07/08/20221957 IMPRESSION: Postoperative change with minimal vascular conge stion and bibasilar pulmonary opacities. Impression By: Noreen Perdue RADIOLOGY - XR CHEST 1 V 07/09 0615 Report Impression - Status: SIGNED Entered: 07/09/2022 0956 IMPRESSION: 1. Stable pulmonary opacities likely combination of airspace disease and atelectasis. 2. Stable left basilar pleuroparenchymal changes with small volume pleural effusions. 3. Stable postoperative cardiomediastinal silhou ette. Impression By: Yogesh ChengD. Diagnosis, Assessment Plan Free Text A P: Assessment: 1-CLAUDETTE likely from urinary retention. 2- non-STEMI: multivessel disease w main left. 3- BPH 4-severe bilateral hydronephrosis 5-hypertension 6-hyperlipidemia Plan: -unknown Scr baseline. - He underwent LHC on 07/03. Started on HD withou t UF on 07/04 for clearance - Ultrasound showed severe bilateral hydronephro sis -Excellent urine output volume with Waters cathet er. Suspect renal recovery. - continue Waters catheter and strict intake and output - s/p CABG 07/08 Discussed with patient and cardiothoracic surger y team Consultants: cardiology, cardiovascular surgery, nephrology Electronically Signed by Evelina Plaza MD on 06/30 at 1857 RPT #:[id number] END OF REPORT 2022-07-08 11:45:00-00:00 [facility] Hospitalist Progress Note REPORT#:[id number] REPORT STATUS: Signed DATE:07/08/22 TIME: 1145 PATIENT: SHERRI ARCE UNIT #: [id number] ROOM/BED: [place] [address] : 42 AGE: 81 SEX: M ATTEND: Radha Ward ADM AUTHOR: Radha Ward MD * ALL edits or amendments must be made on the [email or web address] document * Subjective Chief complaint: Just left for CABG today HPI: 81 y/o man with PMHx of HTN, Dyslipidemia [facility] with chest pain and found to have a NSTEMI and also acute renal failure. Underwent cardiac c ath yesterday and found to have severe CAD including left main disease. Transfer here f or CABG evaluation. He also underwent HD Thursday and Thursday of this week. HD catheter was place at [facility]. Currently not having any chest pain. Had chest pain with SOB when he presentted to the previous hospital. Objective General VS/I O: Vital Signs: Date Time Temp Pulse Resp B/P B/P Pulse O2 O2 F low FiO2 Mean Ox Delivery Rate 07/08 1105 109/57 74 07/08 1105 66 26 102/58 75 94 07/08 1104 68 22 91/54 68 94 07/08 1103 91/54 66 07/08 1103 67 22 109/57 77 95 07/08 1100 72 27 107/58 76 95 07/08 1000 76 25 113/55 79 96 07/08 0813 24 07/08 0800 98.5 113/57 75 Room air 0 07/08 0800 75 113/57 78 92 07/08 0700 72 12 117/70 89 96 07/08 0400 98.4 07/08 0400 72 28 106/59 79 93 07/08 0300 75 29 118/62 84 93 07/08 0200 75 33 110/61 80 94 07/08 0100 80 26 114/69 87 94 07/08 0001 91 39 129/60 86 95 07/08 0000 98.0 07/07 2300 97 23 110/55 73 91 07/07 2200 85 19 101/61 76 97 07/07 2127 97.7 82 22 128/67 94 Room air 07/07 2115 83 21 116/65 85 95 07/07 2100 84 24 123/65 87 94 07/07 2045 87 27 110/59 79 93 07/07 2030 89 29 94/50 64 92 07/07 2014 87 26 100/62 75 93 07/07 1999 98.3 07/07 1999 84 25 97/50 71 91 07/07 1945 88 27 105/57 77 92 07/07 1930 90 28 105/58 77 90 07/07 1915 84 27 114/58 80 93 07/07 1900 86 29 109/55 76 93 07/07 1736 98.3 80 17 138/70 99 Room air 24 hour I O ending at 0700: 07/08 0700 07/07 1900 Intake Total 350 580.00 Output Total 775 1100 Balance -425 -520.00 Intake, 0 Hemodialysis Intake, IV 100.00 Intake, Oral 250 480 Intake, Oral 100 Supplement Number 1 Bowel Movements Output, Urine 775 1100 Patient 84 kg Weight Weight Bed scale Measurement Method PATIENT WEIGHT: Weight (lb): 185 Weight (oz): 3.01 Weight (kg): 84.000 Medications: Active Meds + DC'd Last 24 Hrs Sodium Chloride (SODIUM CHLORIDE 0.9%) 100 ML .S TK-MED ONE IV (DC) Albumin Human (ALBUMINAR-25%) 50 ML .STK-MED ONE IV (DC) Fentanyl Citrate (SUBLIMAZE) 0 .STK-MED ONE IV ( DC) Midazolam HCl (VERSED) 0 .STK-MED ONE .ROUTE (DC ) Papaverine HCl (PAPAVERINE HCL) 0 .STK-MED ONE I V (DC) Albumin Human (ALBUMINAR-25%) 100 ML .STK-MED ON E IV (DC) Heparin Sodium (HEPARIN SODIUM) 0 .STK-MED ONE . ROUTE (DC) Mannitol (Mannitol 20%) 500 ML .STK-MED ONE IV ( DC) Sodium Chloride (SODIUM CHLORIDE 0.9%) 100 ML .S TK-MED ONE IV (DC) Lidocaine HCl (XYLOCAINE IV) 0 .STK-MED ONE IV ( DC) Magnesium Sulfate (MAGNESIUM SULFATE) 0 .STK-MED ONE IV (DC) Phenylephrine HCl (SWETA-SYNEPHRINE 10MG/ML AMP) 0 .STK-MED ONE .ROUTE (DC ) Sodium Bicarbonate (SODIUM BICARBONATE) 0 .STK-M ED ONE IV (DC) Cefazolin Sodium (KEFZOL OR ANCEF) 0 .STK-MED ON E .ROUTE (DC) Epinephrine HCl (EPINEPHrine 4 mg/D5W 250 mL) 25 0 ML .STK-MED ONE IV (DC ) Insulin Human Regular (HumuLIN R 100 UNITS/NS 10 0ML) 100 ML .STK-MED ONE IV (DC) Nitroglycerin/Dextrose (NITROGLYCERIN 50,000MCG/ D5W 250ML) 250 ML .STK-MED ONE IV (DC) Norepinephrine Bitartrate (NOREPINEPHRINE 8 MG/N S 250 ML) 250 ML .STK-MED ONE IV (DC) Magnesium Sulfate (MAGNESIUM SULFATE) 0 .STK-MED ONE .ROUTE (DC) Protamine Sulfate (PROTAMINE SULFATE) 0 .STK-MED ONE IV (DC) Ropivacaine (NAROPIN 0.5% 150 MG/30mL) 0 .STK-ME D ONE .ROUTE (DC) Aminocaproic Acid (AMICAR) 0 .STK-MED ONE IV (DC ) Heparin Sodium (HEPARIN SODIUM) 0 .STK-MED ONE . ROUTE (DC) Dexamethasone Sodium Phosphate (DECADRON) 0 .STK -MED ONE .ROUTE (DC) Lidocaine HCl (XYLOCAINE) 0 .STK-MED ONE .ROUTE (DC) Ondansetron HCl (ZOFRAN) 0 .STK-MED ONE .ROUTE ( DC) Rocuronium Kersey (ZEMURON) 0 .STK-MED ONE IV ( DC) Cefazolin Sodium (KEFZOL OR ANCEF) 2 GM PREOP IVF EMBRYOLOGIST IV (CKD) Metoprolol Tartrate (LOPRESSOR) 6.25 MG ONCE ONE PO (CAN) Vancomycin HCl (VANCOMYCIN HCL) 1,250 MG PREOP O NCALL IV (CKD) Sodium Chloride (SODIUM CHLORIDE 0.9%) 250 ML Verapamil HCl (ISOPTIN) 16.6 MG .Q24H ONE IV (CK D) Heparin Sodium (Porcine) (HEPARIN SODIUM) 1,660 UNIT Sodium Bicarbonate (SODIUM BICARBONATE) 0.7 ML Nitroglycerin/Dextrose (NITROGLYCERIN 50MG/D5W 250ML) 8.3 MG Lactated Ringer's (LACTATED RINGERS) 949.5 ML Acetaminophen (TYLENOL EXTRA STRENGTH) 1,000 MG PREOP ONCALL PO (CKD) Gabapentin (NEURONTIN) 200 MG PREOP ONCALL PO ( CKD) Sodium Chloride (SODIUM CHLORIDE) 20 ML ASDIR IV Acetaminophen (TYLENOL EXTRA STRENGTH) 1,000 MG PREOP ONCALL PO (DC) Cefazolin Sodium (KEFZOL OR ANCEF) 2 GM PREOP IVF EMBRYOLOGIST IV (DC) Gabapentin (NEURONTIN) 200 MG PREOP ONCALL PO (D C) Sodium Chloride (SODIUM CHLORIDE) 20 ML ASDIR IV (DC) Vancomycin HCl (VANCOMYCIN HCL) 1,250 MG PREOP O NCALL IV (DC) Sodium Chloride (SODIUM CHLORIDE 0.9%) 250 ML Verapamil HCl (ISOPTIN) 16.6 MG .Q24H ONE IV (DC ) Heparin Sodium (Porcine) (HEPARIN SODIUM) 1,660 UNIT Sodium Bicarbonate (SODIUM BICARBONATE) 0.7 ML Nitroglycerin/Dextrose (NITROGLYCERIN 50MG/D5W 250ML) 8.3 MG Lactated Ringer's (LACTATED RINGERS) 949.5 ML Lidocaine HCl (LIDOCAINE HCL/PF) 2 ML PREOP ONCA LL LOCAL Lidocaine HCl (LIDOCAINE HCL/PF) 2 ML PREOP ONCA LL LOCAL Sodium Chloride (SODIUM CHLORIDE 0.9%) 500 ML NV EOP ONCALL IV Sodium Chloride (SODIUM CHLORIDE 0.9%) 500 ML NV EOP ONCALL IV Sodium Chloride (SODIUM CHLORIDE) 5 ML ASDIR PRN IV Sodium Chloride (SODIUM CHLORIDE) 10 ML ASDIR NV N IV Sodium Chloride (SODIUM CHLORIDE 0.9%) 250 ML DIR PRN IV Bisacodyl (DULCOLAX) 10 MG DAILY PRN PRN RECTAL Polyethylene Glycol (MIRALAX) 17 GM DAILY PO Senna/Docusate Sodium (SENOKOT S) 2 TAB DAILY PO Atorvastatin Calcium (LIPITOR) 20 MG BEDTIME PO Ceftriaxone Sodium (ROCEPHIN 1000MG VIAL) 1,000 MG Q24H IV (DC) Sodium Chloride (SODIUM CHLORIDE) 10 ML Albumin Human (ALBUMINAR-25%) 12.5 GM ASDIR PRN IV Heparin Sodium (Porcine) (HEPARIN SODIUM) 3,000 UNIT ASDIR PRN DIALYSIS Lidocaine HCl (LIDOCAINE HCL/PF) 0.5 ML ASDIR NV N I-DERMAL (CKD) Mannitol (Mannitol 20%) 12.5 GM ASDIR PRN IV Sodium Chloride (SODIUM CHLORIDE 0.9%) 2,000 ML ASDIR PRN IV Sodium Chloride (SODIUM CHLORIDE) 5 ML ASDIR PRN IV Sodium Chloride (SODIUM CHLORIDE) 10 ML ASDIR NV N IV Sodium Chloride (SODIUM CHLORIDE 0.9%) 250 ML DIR PRN IV Aspirin (ASPIRIN) 81 MG DAILY PO Metoprolol Tartrate (LOPRESSOR) 12.5 MG BID PO Mupirocin (BACTROBAN 2% 22 GM OINTMENT) 1 APPLIC BID NASAL (DC) Tamsulosin HCl (Flomax 0.4 mg) 0.4 MG BEDTIME PO Docusate Sodium (COLACE) 100 MG BID PRN PRN PO Labetalol HCl (LABETALOL HCL) 10 MG Q6H PRN PRN IV Ondansetron HCl (ZOFRAN) 4 MG Q4H PRN PRN IV Physical Exam General appearance: alert, awake, oriented Head/Eyes: atraumatic, EOMI, normal conjunctiva/ sclera, normocephalic, PERRLA ENT: moist mucosal membranes Neck: full range of motion, no bruit/NL carotids , no JVD Cardiovascular: normal heart sounds, regular rat e rhythm Respiratory: aerating well, clear to auscultatio n, symmetric expansion, no distress Abdomen: non-tender, normal bowel sounds , soft, no distention, no guarding, no rebound Extremities: moves all, no cyanosis, no edema Musculoskeletal: normal inspection 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: alert, oriented X 3, normal speech, n o motor deficits, no sensory deficits Skin: intact, normal color, no rash Psychiatry: normal affect Results Findings/Data: Laboratory Tests 07/08 07/08 1548 1449 Blood Gas O2 Saturation (90 - 100 %) 100.0 100.0 ABG pH (7.35 - 7.45) 7.262 *L 7.330 L ABG pCO2 (35.0 - 45 mmHg) 49.5 H 40.0 ABG pO2 (80 - 100.0 mmHg) 458.7 *H 487.7 *H ABG HCO3 (22.0 - 26.0 MMOL/L) 22.3 21.1 L ABG Total CO2 23.8 22.3 ABG Base Excess (-4.0 - 4.0 MMOL/L) -4.8 L -4.5 L ABG Hematocrit (37.5 - 50.7 %) 32 L 33 L ABG Hemoglobin (12.5 - 16.9 G/DL) 10.8 L 11.3 L Sodium (134 - 147 mmol/L) 144 147 Potassium (3.4 - 5.0 mmol/L) 4.1 4.2 Chloride (100 - 108 mmol/L) 111 H 112 H Ionized Calcium (1.12 - 1.32 MMOL/L) 1.15 1.11 L Lactic Acid (0.9 - 1.7 mmol/l) 0.8 L < 0.3 L Laboratory Tests 07/08 07/08 07/08 07/07 1548 1449 0530 1746 Chemistry Sodium (134 - 147 mEq/L) 145 Potassium (3.4 - 5.0 mEq/L) 4.7 Chloride (100 - 108 mEq/L) 109 H Carbon Dioxide (21 - 33 mEq/l) 26 Anion Gap (0 - 20) 15 BUN (7 - 18 mg/dL) 35 H Creatinine (0.6 - 1.3 mg/dL) 4.0 H POC Creatinine (0.8 - 1.3 mg/dL) 4.6 H 4.0 H Glomerular Filtr Rate (70 - 80) 14.5 L Glucose (70 - 110 mg/dL) 90 POC Glucose (70 - 110 MG/DL) 112 H POC Glucose (mg/dL) (70 - 110 MG/DL) 141 H 88 Calcium (8.0 - 10.5 mg/dL) 8.7 Phosphorus (2.5 - 4.9 MG/DL) 3.8 Magnesium (1.80 - 2.40 mg/dL) 1.92 Total Bilirubin (0.0 - 1.0 mg/dL) 0.20 AST (15 - 37 IUnit/L) 34 ALT (30 - 65 IUnit/L) 34 Total Alk Phosphatase (20 - 125 IUnit/L) 93 Total Protein (6.4 - 8.2 g/dL) 7.0 Albumin (3.4 - 5.0 g/dL) 2.80 L Laboratory Tests 07/08 07/08 07/08 1550 1452 0530 Coagulation INR (0.8 - 1.2) 1.2 PTT (Agus) (25.0 - 39.5 Seconds) 31.8 PT Patient/Control Mix (9.3 - 12.9 SECONDS) 12. 9 Activated Coag Time (74 - 137 SEC) 606 H 137 Laboratory Tests 07/08 0530 Hematology WBC (4.5 - 11.0 x10 3/uL) 13.6 H RBC (4.00 - 5.60 x10 6/uL) 3.60 L Hgb (12.5 - 16.9 g/dL) 10.8 L Hct (37.5 - 50.7 %) 35.4 L MCV (81.0 - 99.0 fL) 98.3 MCH (27.0 - 33.0 pg) 30.0 MCHC (33.0 - 37.0 g/dL) 30.5 L RDW (11.5 - 14.5 %) 16.8 H Plt Count (150 - 400 x10 3/uL) 164 MPV (7.0 - 9.0 fL) 10.9 H Neut % (Auto) (56.0 - 77.0 %) 68.9 Lymph % (Auto) (14.0 - 32.0 %) 10.2 L [place] % (Auto) (4.8 - 9.0 %) 8.6 Eos % (Auto) (0.3 - 3.7 %) 10.2 H Baso % (Auto) (0.0 - 2.0 %) 0.7 Neut # (Auto) (2.0 - 7.6 x10 3/uL) 9.37 H Lymph # (Auto) (1.0 - 3.8 x10 3/uL) 1.38 [place] # (Auto) (0.1 - 0.8 x10 3/uL) 1.17 H Eos # (Auto) (0.0 - 0.2 x10 3/uL) 1.39 H Baso # (Auto) (0.0 - 0.2 x10 3/uL) 0.09 Abs Immat Gran (auto) (0.00 - 0.03 x10 3/uL) 0. 19 H Add Manual Diff NO Immature Gran % (0.0 - 2.0 %) 1.4 Nucleated RBC % (0 - 0 %) 0.0 Nucleated RBCs # (Man) (0.0 - 0.1 x10 3/uL) 0.0 0 Diagnosis, Assessment Plan Consultants: cardiology, cardiovascular surgery, nephrology Free Text DxA P Notes Free text DxA P notes: Assessment and plans: CAD (coronary artery disease) patient presented with NSTEMI and found to hve severe CAD. Cardiac cath shows: Left Main - Distal 70% LAD - Proximal 80% with another 60% and 70% les sions Cir - Proximal 80%,mid 80-90%, Distal 70% and O M 60% RCA - large dominant with proximal 40%, Mid 60% . Patient on ASA, BB and Statin Cardiology and CV surgeon consulted echo: ef 30-34%, mod hypokinesis of entire myoc ardium, grade 1 diastolic dysfunction Carotid Dopplers negative PFTs pending PT/OT Plan for CABG today 07/08 Acute systolic heart failure Echocardiac with estimated LVEF of 30 to 34% wi th grade 1 diastolic dysfunction -s/p Lasix 20 mg twice daily 07/05 -on metoprolol 12.5 mg bid -no ACEI/ spironolactione for CLAUDETTE -Strict I's and O's, daily weights -Start GDMT prior to discharge CLAUDETTE (acute kidney injury) No prior Hx of renal disease. hx of BPH and casimiro ated with Fosamax w/o improvement nd continue to h ave difficulty urinating. On admission was found to be on acute renal filaure and had received HD tw ice prior to arrival here ( thursday and thursday). Creatinine this am was 7.4, BUN 68 * Probably due to obstructive uropathy * waters already in place * Nephrology consuled for HD On daily hemodialysis as per nephrology HTN (hypertension) patient on metoprolol 12.5 mg BID, will adjust as needed On labetalol/hydralazine as needed Dyslipidemia on Lipitor 20mg po daliy. BPH (benign prostatic hyperplasia) Started on Flomax at the previous hospital, thais l continue with it. Wtaers catheter in place, continue Waters cathete r as per nephrology 07/05 Goiter Hx of Goiter and surgical resection. TSH 3.33, within normal limits. Patient is not on Thyroid medication. anemia of chronic kidney disease Hemoglobin 9.5, monitor Hypokalemia resolved UTI continue Rocephin for empiric treatment pend ing results of urine culture No growth for 48 hours DVT prophylaxis: Heparin 5000 units every 8 hour s Diet: N.p.o. for CABG CODE STATUS: Full code Disposition: On daily hemodi alysis, Waters catheter in place, plan for CABG today 07/08. Continue CCU/CVICU care. Quality: Gen Med Crit Care VTE Prophylaxis VTE prophylaxis initiated: yes Current Medications Current medication review: I attest that the foregoing medication list in t he medical record is true, accurate, and complete to the best of my knowled ge. Advanced Care Plan 65 or Older Discussed with: patient Discussion included: living will (none), power of employment law attorney (none), code status ( full code) Electronically Signed by Radha Ward MD on 3 at 1603 RPT #:[id number] END OF REPORT 2022-07-08 08:45:00-00:00 HCACL [facility] ([facility] Cardiology Progress Note REPORT#:[id number] REPORT STATUS: Signed DATE:07/08/22 TIME: 0845 PATIENT: SHERRI ARCE UNIT #: [id number] ROOM/BED: [place] [address] : 42 AGE: 81 SEX: M ATTEND: Radha Ward ADM AUTHOR: Jyoti Browning NP * ALL edits or amendments must be made on the el [employer]/computer document * Subjective Chief complaint: surgery today Objective General VS/I O: Laboratory Tests 07/08/22 0530: [Embedded Image Not Available] 07/07/22 0321: [Embedded Image Not Available] Current Medications Sig/Earl Start time Last Medication Dose Route Stop Time Status Admin Fentanyl Citrate 0 .STK-MED ONE 07/08 1255 DC IV Midazolam HCl 0 .STK-MED ONE 07/08 1218 DC .ROUTE Papaverine HCl 0 .ST-MED ONE 07/08 1213 DC IV Albumin Human 100 ML .STK-MED ONE 07/08 1129 DC IV Heparin Sodium 0 .STK-MED ONE 07/08 1128 DC .ROUTE Mannitol 500 ML .STK-MED ONE 07/08 112 DC IV Sodium Chloride 100 ML .STK-MED ONE 07/08 1128 DC IV Lidocaine HCl 0 .STK-MED ONE 07/08 1127 DC IV Magnesium Sulfate 0 .STK-MED ONE 07/08 1127 DC IV Phenylephrine HCl 0 .[facility]-MED ONE 07/08 112 DC .ROUTE Sodium Bicarbonate 0 .ST-MED ONE 07/08 1127 DC IV Cefazolin Sodium 0 .ST-MED ONE 07/08 1112 DC .ROUTE Epinephrine HCl 250 ML .[facility]-MED ONE 07/08 938 DC IV Insulin Human Regular 100 ML .[facility]-MED ONE 07/08 938 DC IV Nitroglycerin/ 250 ML .[facility]-MED ONE 07/08 938 D C Dextrose IV Norepinephrine 250 ML .[facility]-MED ONE 07/08 938 D C Bitartrate IV Magnesium Sulfate 0 .[facility]-MED ONE 07/08 937 DC .ROUTE Protamine Sulfate 0 .ST-MED ONE 07/08 937 DC IV Ropivacaine 0 .ST-MED ONE 07/08 937 DC .ROUTE Aminocaproic Acid 0 .ST-MED ONE 07/08 929 DC IV Heparin Sodium 0 .ST-MED ONE 07/08 924 DC .ROUTE Dexamethasone Sodium 0 .[facility]-MED ONE 07/08 923 DC Phosphate .ROUTE Lidocaine HCl 0 .[facility]-MED ONE 07/08 923 DC .ROUTE Ondansetron HCl 0 .STK-MED ONE 07/08 923 DC .ROUTE Rocuronium Kersey 0 .STK-MED ONE 07/08 923 DC IV Cefazolin Sodium 2 GM PREOP ONCALL 07/08 0500 C KD IV 07/08 2359 Metoprolol Tartrate 6.25 MG ONCE ONE 07/08 0500 CAN PO 07/08 0501 Vancomycin HCl 1,250 MG PREOP ONCALL 07/08 0500 CKD Sodium Chloride 250 ML IV 07/08 2359 Verapamil HCl 16.6 MG .Q24H ONE 07/08 0500 CKD Heparin Sodium 1,660 UNIT IV 07/09 0459 (Porcine) Sodium Bicarbonate 0.7 ML Nitroglycerin/ 8.3 MG Dextrose Lactated Ringer's 949.5 ML Acetaminophen 1,000 MG PREOP ONCALL 07/07 2230 CKD 07/08 PO 08/06 2229 1117 Gabapentin 200 MG PREOP ONCALL 07/07 2230 CKD 0 07/08 PO 08/06 2359 1117 Sodium Chloride 20 ML ASDIR 07/07 223 AC IV 08/06 2229 Acetaminophen 1,000 MG PREOP ONCALL 07/07 0500 DC PO 07/07 2359 Cefazolin Sodium 2 GM PREOP ONCALL 07/07 0500 D C IV 07/07 2359 Gabapentin 200 MG PREOP ONCALL 07/07 0500 DC PO 07/07 2359 Sodium Chloride 20 ML ASDIR 07/07 0500 DC IV 07/07 2359 Vancomycin HCl 1,250 MG PREOP ONCALL 07/07 0500 DC Sodium Chloride 250 ML IV 07/07 2359 Verapamil HCl 16.6 MG .Q24H ONE 07/07 0500 DC Heparin Sodium 1,660 UNIT IV 07/08 0459 (Porcine) Sodium Bicarbonate 0.7 ML Nitroglycerin/ 8.3 MG Dextrose Lactated Ringer's 949.5 ML Lidocaine HCl 2 ML PREOP ONCALL 07/06 223 AC LOCAL 08/05 2359 Lidocaine HCl 2 ML PREOP ONCALL 07/06 223 AC LOCAL 08/05 2359 Sodium Chloride 500 ML PREOP ONCALL 07/06 223 AC IV 08/05 2359 Sodium Chloride 500 ML PREOP ONCALL 07/06 223 AC IV 08/05 2359 Sodium Chloride 5 ML ASDIR PRN 07/06 2229 AC IV 08/05 2229 Sodium Chloride 10 ML ASDIR PRN 07/06 223 AC IV 08/05 2229 Sodium Chloride 250 ML ASDIR PRN 07/06 2229 AC IV 02/28 2229 Bisacodyl 10 MG DAILY PRN PRN 07/06 0930 AC RECTAL 08/05 0929 Polyethylene Glycol 17 GM DAILY 07/06 09 AC 0 07/06 PO 08/05 0920 1130 Senna/Docusate Sodium 2 TAB DAILY 07/06 0921 AC 07/06 PO 08/05 0920 1130 Atorvastatin Calcium 20 MG BEDTIME 07/03 2100 A C 07/07 PO 08/02 205 2152 Ceftriaxone Sodium 1,000 MG Q24H 07/03 1600 AC 07/07 Sodium Chloride 10 ML IV 07/08 1559 1646 Albumin Human 12.5 GM ASDIR PRN 07/03 1200 AC IV 08/03 1155 Heparin Sodium 3,000 UNIT ASDIR PRN 07/03 1200 AC 07/07 (Porcine) DIALYSIS 08/02 1159 1812 Lidocaine HCl 0.5 ML ASDIR PRN 07/03 1200 CKD I-DERMAL 08/03 1155 Mannitol 12.5 GM ASDIR PRN 07/03 1200 AC IV 08/03 1155 Sodium Chloride 2,000 ML ASDIR PRN 07/03 1200 A C 07/07 IV 08/03 1155 1813 Sodium Chloride 5 ML ASDIR PRN 07/03 1200 AC IV 08/02 1159 Sodium Chloride 10 ML ASDIR PRN 07/03 1200 AC 0 07/07 IV 08/02 1159 1815 Sodium Chloride 250 ML ASDIR PRN 07/03 1200 AC IV 08/02 1159 Aspirin 81 MG DAILY 07/03 0900 AC 07/08 PO 08/02 0859 0925 Metoprolol Tartrate 12.5 MG BID 07/03 0900 AC 0 07/08 PO 08/02 0859 0925 Mupirocin 1 APPLIC BID 07/03 0900 DC 07/07 NASAL 07/07 210 2152 Tamsulosin HCl 0.4 MG BEDTIME 07/02 2144 AC PO 08/01 214 2152 Docusate Sodium 100 MG BID PRN PRN 07/02 2114 A C 07/06 PO 08/01 Labetalol HCl 10 MG Q6H PRN PRN 07/02 2114 AC IV 08/01 2113 Ondansetron HCl 4 MG Q4H PRN PRN 07/02 2114 AC IV 08/01 2113 24 hour I O ending at 0700: 07/08 0700 07/07 1900 Intake Total 350 580.00 Output Total 775 1100 Balance -425 -520.00 Intake, 0 Hemodialysis Intake, IV 100.00 Intake, Oral 250 480 Intake, Oral 100 Supplement Number 1 Bowel Movements Output, Urine 775 1100 Patient 84 kg Weight Weight Bed scale Measurement Method Vital Signs: Date Time Temp Pulse Resp B/P B/P Pulse O2 O2 Flow FiO2 Mean Ox Delivery Rate 07/08 1105 109/57 74 07/08 1105 66 26 102/58 75 94 07/08 1104 68 22 91/54 68 94 07/08 1103 91/54 66 07/08 1103 67 22 109/57 77 95 07/08 1100 72 27 107/58 76 95 07/08 1000 76 25 113/55 79 96 07/08 0813 24 07/08 0800 36.9 113/57 75 Room air 0 07/08 0800 75 113/57 78 92 07/08 0700 72 12 117/70 89 96 07/08 0400 36.9 07/08 0400 72 28 106/59 79 93 07/08 0300 75 29 118/62 84 93 07/08 0200 75 33 110/61 80 94 07/08 0100 80 26 114/69 87 94 07/08 0001 91 39 129/60 86 95 07/08 0000 36.7 07/07 2300 97 23 110/55 73 91 07/07 2200 85 19 101/61 76 97 07/07 2127 36.5 82 22 128/67 94 Room air 07/07 2115 83 21 116/65 85 95 07/07 2100 84 24 123/65 87 94 07/075 87 27 110/59 79 93 07/07 2029 89 29 94/50 64 92 07/07 2014 87 26 100/62 75 93 07/07 1999 36.8 07/07 1999 84 25 97/50 71 91 07/07 1945 88 27 105/57 77 92 07/07 1930 90 28 105/58 77 90 07/07 1915 84 27 114/58 80 93 07/07 1900 86 29 109/55 76 93 07/07 1736 36.8 80 17 138/70 99 Room air 07/07 1600 93 36 132/77 100 98 07/07 1500 73 15 123/66 89 95 07/07 1400 74 12 120/72 91 97 PATIENT WEIGHT: Weight (lb): 185 Weight (oz): 3.01 Weight (kg): 84.000 Physical Exam General appearance: alert, awake, oriented, no a cute distress, pleasant Head/Eyes: atraumatic, clear cornea ENT: moist mucosal membranes Neck: full range of motion, no JVD Cardiovascular: CV assessment: regular rate and rhythm, no murm ur Respiratory: decreased breath sounds, no distres s Abdomen: soft, non-tender, normal bowel sounds, no distention, no guarding Genitourinary: urinary catheter, urine Upper extremity: UE assessment: normal temperature, no edema Lower extremity: LE assessment: normal temperature, no edema 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ALTH: alert, oriented X 3, normal speech Psychiatry: normal affect Diagnosis, Assessment Plan Problem List/A P: 1. HTN (hypertension) 2. CLAUDETTE (acute kidney injury) 3. CAD (coronary artery disease) 4. Dyslipidemia 5. BPH (benign prostatic hyperplasia) Consultants: cardiology, cardiovascular surgery, nephrology Free Text DxA P Notes Free Text DxA P Notes: Mr. Arce is a pleasant 81 y/o M w/ PMHx: HTN, HLD presented to [facility] on 06/28/22 for chest pa in and sob. He was diagnosed NSTEMI w/ Trop was peaked 7600's, EKG w/ normal ST and CLAUDETTE w/ Cr 14 on admission. He underwent LHC on 07/[address] Layne which showed severe mLM 70% stenosis, pLAD diffuse 80% stenosis, mLA D 60% and focal 70% stenosis; pLCx 80% stenosis, dLCx 70% stenosis, pOM 60% stenosis; p RCA 40% stenosis, mRCA 60% stenosis and diffuse 50-60% dRCA. He transferred to [facility] for CABG. - CAD/NSTEMI. Per CTS. s/p LHC: multivessel disease. Carotid u/s -no stenosis CT chest small bilateral fluid effusion and ate lectasis. On statins, BB, ASA. Echo: LVEF 30-34% Plans for CABG- today- post-op per CTS- will fo llow - Acute Systolic HF with ischemic CMP LVEF 30-34 % strict I/Os, daily weights, fluid restriction, low NA diet diuresis per Nephrology no charly/arb/aldactone due to CLAUDETTE appears compensated GDMT on discharge follow post-op - CLAUDETTE. HD Per nephro. likly from obstructive uropathy. s/p waters cath. Renal ultrasound showed severe thickening of th e bladder, cholelitiasis. - HTN. Bp controlled. monitor post-op - HLD. On statins. - Anemia. stable, monitor post-op continue supportive care Electronically Signed by Jyoti Browning LAUNDRY ASSISTANT on 0 07/08/22 at 1350 Electronically Signed by Liset Ennis MD on at 0834 RPT #:[id number] END OF REPORT 2022-07-08 08:29:00-00:00 [id number] [place] [address] PATIENT NAME: SHERRI ARCE ADMIT DATE: 07/02/22 ACCOUNT NO: [id number] ROOM NO: [facility] AGE: 81 REPORT TYPE: CARDIAC CATHETERIZATION REPORT SEX: M ADMITTING PHYSICIAN:Radha Ward MD ATTENDING PHYSICIAN:Radha Ward MD PROCEDURE DATE: 07/08/2022 SPIROMETRY: FVC is 193% of predicted. FEV1 is 15 8% of predicted. Ratio is 55. Next, PFT showed obstructive impairment, mild C OPD. Dictated By: Valorie Garcia MD Date Dictated: 07/08/2022 08:29:47 Date Transcribed: 07/08/2022 08:43:59 /FARHANA Receipt ID: [id number] Authenticated by VALORIE GARCIA MD On 07/08/2022 03:21:03 PM Electronically Signed by Valorie Garcia MD on at 0321 PATIENT NAME: SHERRI ARCE 2022-07-07 17:37:00-00:00 [facility] ([facility]) Nephrology Progress Note REPORT#:[id number] REPORT STATUS: Signed DATE:07/07/22 TIME: 1736 PATIENT: SHERRI ARCE UNIT #: [id number] ROOM/BED: [place] [address] : 42 AGE: 81 SEX: M ATTEND: Radha Ward ADM AUTHOR: Evelina Plaza MD * ALL edits or amendments must be made on the [email or web address] document * Subjective Chief complaint: Has no chest pain or shortness of breath. [place] te urine output volume. Objective General VS/I O: Vital Signs: Date Time Temp Pulse Resp B/P B/P Pulse O2 O2 F low FiO2 Mean Ox Delivery Rate 07/07 1600 93 36 132/77 100 98 07/07 1500 73 15 123/66 89 95 07/07 1400 74 12 120/72 91 97 07/07 1300 72 15 117/64 85 96 07/07 1200 79 20 110/66 84 97 07/07 1100 71 23 103/61 78 94 07/07 1000 69 23 96/52 67 92 07/07 0915 96 Room air 21 07/07 0900 78 20 116/62 84 95 07/07 0800 97.8 82 26 111/56 78 91 07/07 0700 83 29 117/62 83 94 07/07 0600 81 19 125/67 90 93 07/07 0500 81 27 96/51 69 92 07/07 0400 98.3 07/07 0400 80 25 111/58 78 94 07/07 0300 79 28 126/61 87 94 07/07 0200 82 29 120/65 87 93 07/07 0100 84 31 121/66 88 92 07/07 0001 91 25 133/65 91 94 07/07 0000 98.5 Room air 07/06 2300 74 29 131/70 95 94 07/06 2200 71 27 128/69 93 94 07/06 2100 74 29 124/68 90 94 07/06 2018 94 29 144/74 103 96 07/06 2000 97.9 Room air 07/06 1900 86 28 134/67 93 94 24 hour I O ending at 0700: 07/07 0700 07/06 1900 Intake Total 360 1180 Output Total 1250 700 Balance -890 480 Intake, 0 Hemodialysis Intake, Oral 360 480 Intake, 700 Packed Cells Output, Urine 1250 700 Patient 85 kg Weight Weight Bed scale Measurement Method PATIENT WEIGHT: Weight (lb): 187 Weight (oz): 6.29 Weight (kg): 85.000 Medications Active Meds + DC'd Last 24 Hrs Papaverine HCl (PAPAVERINE HCL) 0 .STK-MED ONE I V (DC) Magnesium Sulfate (MAGNESIUM SULFATE 2GM/SWFI 50 ML) 50 ML ONCE ONE IV ( DC) Acetaminophen (TYLENOL EXTRA STRENGTH) 1,000 MG PREOP ONCALL PO (CKD) Cefazolin Sodium (KEFZOL OR ANCEF) 2 GM PREOP IVF EMBRYOLOGIST IV (CKD) Gabapentin (NEURONTIN) 200 MG PREOP ONCALL PO (C KD) Metoprolol Tartrate (LOPRESSOR) 6.25 MG ONCE ONE PO (DC) Sodium Chloride (SODIUM CHLORIDE) 20 ML ASDIR IV Vancomycin HCl (VANCOMYCIN HCL) 1,250 MG PREOP O NCALL IV (CKD) Sodium Chloride (SODIUM CHLORIDE 0.9%) 250 ML Verapamil HCl (ISOPTIN) 16.6 MG .Q24H ONE IV (CK D) Heparin Sodium (Porcine) (HEPARIN SODIUM) 1,660 UNIT Sodium Bicarbonate (SODIUM BICARBONATE) 0.7 ML Nitroglycerin/Dextrose (NITROGLYCERIN 50MG/D5W 250ML) 8.3 MG Lactated Ringer's (LACTATED RINGERS) 949.5 ML Lidocaine HCl (LIDOCAINE HCL/PF) 2 ML PREOP ONCA LL LOCAL Lidocaine HCl (LIDOCAINE HCL/PF) 2 ML PREOP ONCA LL LOCAL Sodium Chloride (SODIUM CHLORIDE 0.9%) 500 ML NV EOP ONCALL IV Sodium Chloride (SODIUM CHLORIDE 0.9%) 500 ML NV EOP ONCALL IV Sodium Chloride (SODIUM CHLORIDE) 5 ML ASDIR PRN IV Sodium Chloride (SODIUM CHLORIDE) 10 ML ASDIR NV N IV Sodium Chloride (SODIUM CHLORIDE 0.9%) 250 ML DIR PRN IV Bisacodyl (DULCOLAX) 10 MG DAILY PRN PRN RECTAL Polyethylene Glycol (MIRALAX) 17 GM DAILY PO Senna/Docusate Sodium (SENOKOT S) 2 TAB DAILY PO Atorvastatin Calcium (LIPITOR) 20 MG BEDTIME PO Ceftriaxone Sodium (ROCEPHIN 1000MG VIAL) 1,000 MG Q24H IV Sodium Chloride (SODIUM CHLORIDE) 10 ML Albumin Human (ALBUMINAR-25%) 12.5 GM ASDIR PRN IV Heparin Sodium (Porcine) (HEPARIN SODIUM) 3,000 UNIT ASDIR PRN DIALYSIS Lidocaine HCl (LIDOCAINE HCL/PF) 0.5 ML ASDIR NV N I-DERMAL (CKD) Mannitol (Mannitol 20%) 12.5 GM ASDIR PRN IV Sodium Chloride (SODIUM CHLORIDE 0.9%) 2,000 ML ASDIR PRN IV Sodium Chloride (SODIUM CHLORIDE) 5 ML ASDIR PRN IV Sodium Chloride (SODIUM CHLORIDE) 10 ML ASDIR NV N IV Sodium Chloride (SODIUM CHLORIDE 0.9%) 250 ML DIR PRN IV Aspirin (ASPIRIN) 81 MG DAILY PO Metoprolol Tartrate (LOPRESSOR) 12.5 MG BID PO Mupirocin (BACTROBAN 2% 22 GM OINTMENT) 1 APPLIC BID NASAL Tamsulosin HCl (Flomax 0.4 mg) 0.4 MG BEDTIME PO Docusate Sodium (COLACE) 100 MG BID PRN PRN PO Labetalol HCl (LABETALOL HCL) 10 MG Q6H PRN PRN IV Ondansetron HCl (ZOFRAN) 4 MG Q4H PRN PRN IV Physical Exam General appearance: alert, awake, oriented Head/eyes: atraumatic, normocephalic ENT: moist mucous membranes, normal nose Neck: non-tender, no JVD Cardiovascular: regular rate and rhythm, no murm ur Respiratory: normal breath sounds, no distress Abdomen: no guarding, no rebound Extremities: non-tender, no edema Skin: dry, no rash Results Findings/Data: Laboratory Tests 07/07 07/07 07/07 1147 0321 0321 Chemistry Sodium (134 - 147 mEq/L) 143 Potassium (3.4 - 5.0 mEq/L) 4.8 Chloride (100 - 108 mEq/L) 111 H Carbon Dioxide (21 - 33 mEq/l) 23 Anion Gap (0 - 20) 14 BUN (7 - 18 mg/dL) 37 H Creatinine (0.6 - 1.3 mg/dL) 4.5 H Glomerular Filtr Rate (70 - 80) 12.6 L Glucose (70 - 110 mg/dL) 93 POC Glucose (70 - 110 MG/DL) 97 Calcium (8.0 - 10.5 mg/dL) 8.6 Phosphorus (2.5 - 4.9 MG/DL) 4.1 Magnesium (1.80 - 2.40 mg/dL) 1.75 L Total Bilirubin (0.0 - 1.0 mg/dL) 0.30 AST (15 - 37 IUnit/L) 37 ALT (30 - 65 IUnit/L) 33 Total Alk Phosphatase (20 - 125 IUnit/L) 90 B-Natriuretic Peptide (0 - 100 PG/ML) 161.0 H Total Protein (6.4 - 8.2 g/dL) 6.9 Albumin (3.4 - 5.0 g/dL) 2.90 L Laboratory Tests 07/07 0544 Coagulation INR (0.8 - 1.2) 1.2 PTT (Gaus) (25.0 - 39.5 Seconds) 33.5 PT Patient/Control Mix (9.3 - 12.9 SECONDS) 13. 4 H Laboratory Tests 07/07 0321 Hematology WBC (4.5 - 11.0 x10 3/uL) 11.6 H RBC (4.00 - 5.60 x10 6/uL) 3.58 L Hgb (12.5 - 16.9 g/dL) 10.8 L Hct (37.5 - 50.7 %) 34.3 L MCV (81.0 - 99.0 fL) 95.8 MCH (27.0 - 33.0 pg) 30.2 MCHC (33.0 - 37.0 g/dL) 31.5 L RDW (11.5 - 14.5 %) 17.2 H Plt Count (150 - 400 x10 3/uL) 162 MPV (7.0 - 9.0 fL) 10.9 H Neut % (Auto) (56.0 - 77.0 %) 65.7 Lymph % (Auto) (14.0 - 32.0 %) 10.6 L [place] % (Auto) (4.8 - 9.0 %) 9.5 H Eos % (Auto) (0.3 - 3.7 %) 11.7 H Baso % (Auto) (0.0 - 2.0 %) 0.8 Neut # (Auto) (2.0 - 7.6 x10 3/uL) 7.61 H Lymph # (Auto) (1.0 - 3.8 x10 3/uL) 1.23 [place] # (Auto) (0.1 - 0.8 x10 3/uL) 1.10 H Eos # (Auto) (0.0 - 0.2 x10 3/uL) 1.35 H Baso # (Auto) (0.0 - 0.2 x10 3/uL) 0.09 Abs Immat Gran (auto) (0.00 - 0.03 x10 3/uL) 0. 20 H Add Manual Diff NO Immature Gran % (0.0 - 2.0 %) 1.7 Nucleated RBC % (0 - 0 %) 0.0 Nucleated RBCs # (Man) (0.0 - 0.1 x10 3/uL) 0.0 0 Diagnosis, Assessment Plan Free Text A P: Assessment: 1-CLAUDETTE likely from urinary retention. 2- non-STEMI: multivessel disease w main left. 3- BPH 4-severe bilateral hydronephrosis 5-hypertension 6-hyperlipidemia Plan: -unknown Scr baseline. - He underwent LHC on 07/03. Started on HD withou t UF on 07/04 for clearance -HD today for clearance - CABG scheduled for 07/08 - Ultrasound showed severe bilateral hydronephro sis -Excellent urine output volume with Waters cathet er. Suspect renal recovery. - continue Waters catheter and strict intake and output - okay for cardiac diet. Discussed with patient and cardiothoracic surger y team Consultants: cardiology, cardiovascular surgery, nephrology Electronically Signed by Evelina Plaza MD on at 1739 RPT #:[id number] END OF REPORT 2022-07-07 11:03:00-00:00 HCACL [facility] Cardiology Progress Note REPORT#:[id number] REPORT STATUS: Signed DATE:07/07/22 TIME: 1103 PATIENT: SHERRI ARCE UNIT #: [id number] ROOM/BED: [place] [address] : 42 AGE: 81 SEX: M ATTEND: Radha Ward ADM AUTHOR: Jyoti Browning NP * ALL edits or amendments must be made on the el [employer]/computer document * Subjective Chief complaint: doing ok scheduled for surgery today Objective General VS/I O: Laboratory Tests 07/07/22 0321: [Embedded Image Not Available] 07/06/22 0458: [Embedded Image Not Available] Current Medications Sig/Earl Start time Last Medication Dose Route Stop Time Status Admin Papaverine HCl 0 .STK-MED ONE 07/07 0840 DC IV Magnesium Sulfate 50 ML ONCE ONE 07/07 0615 DC 07/07 IV 07/07 0814 0640 Acetaminophen 1,000 MG PREOP ONCALL 07/07 0500 CKD PO 07/07 2359 Cefazolin Sodium 2 GM PREOP ONCALL 07/07 0500 C KD IV 07/07 2359 Gabapentin 200 MG PREOP ONCALL 07/07 0500 CKD PO 07/07 2359 Metoprolol Tartrate 6.25 MG ONCE ONE 07/07 0500 DC PO 07/07 0501 Sodium Chloride 20 ML ASDIR 07/07 0500 AC IV 07/07 2359 Vancomycin HCl 1,250 MG PREOP ONCALL 07/07 0500 CKD Sodium Chloride 250 ML IV 07/07 2359 Verapamil HCl 16.6 MG .Q24H ONE 07/07 0500 CKD Heparin Sodium 1,660 UNIT IV 07/08 0459 (Porcine) Sodium Bicarbonate 0.7 ML Nitroglycerin/ 8.3 MG Dextrose Lactated Ringer's 949.5 ML Lidocaine HCl 2 ML PREOP ONCALL 07/06 2230 AC LOCAL 08/05 2359 Lidocaine HCl 2 ML PREOP ONCALL 07/06 2230 AC LOCAL 08/05 2359 Sodium Chloride 500 ML PREOP ONCALL 07/06 2230 AC IV 08/05 2359 Sodium Chloride 500 ML PREOP ONCALL 07/06 2230 AC IV 08/05 2359 Sodium Chloride 5 ML ASDIR PRN 07/06 2230 AC IV 08/05 2229 Sodium Chloride 10 ML ASDIR PRN 07/06 2230 AC IV 08/05 2229 Sodium Chloride 250 ML ASDIR PRN 07/06 2230 AC IV 08/05 2229 Bisacodyl 10 MG DAILY PRN PRN 07/06 0930 AC RECTAL 08/05 0929 Polyethylene Glycol 17 GM DAILY 07/06 0921 AC 07/06 PO 08/05 0920 1130 Senna/Docusate Sodium 2 TAB DAILY 07/06 0921 AC 07/06 PO 08/05 0920 1130 Atorvastatin Calcium 20 MG BEDTIME 07/03 2100 A C 07/06 PO 08/02 Ceftriaxone Sodium 1,000 MG Q24H 07/03 1600 AC 07/06 Sodium Chloride 10 ML IV 07/08 1559 1627 Heparin Sodium 5,000 UNIT Q8HR 07/03 1400 DC SUBQ 08/02 1359 0615 Albumin Human 12.5 GM ASDIR PRN 07/03 1200 AC IV 08/03 1155 Heparin Sodium 3,000 UNIT ASDIR PRN 07/03 1200 AC 07/06 (Porcine) DIALYSIS 08/02 1159 1209 Lidocaine HCl 0.5 ML ASDIR PRN 07/03 1200 CKD I-DERMAL 08/03 1155 Mannitol 12.5 GM ASDIR PRN 07/03 1200 AC IV 08/03 1155 Sodium Chloride 2,000 ML ASDIR PRN 07/03 1200 A C 07/06 IV 08/03 1155 1209 Sodium Chloride 5 ML ASDIR PRN 07/03 1200 AC IV 08/02 1159 Sodium Chloride 10 ML ASDIR PRN 07/03 1200 AC 0 07/06 IV 08/02 1159 1211 Sodium Chloride 250 ML ASDIR PRN 07/03 1200 AC IV 08/02 1159 Aspirin 81 MG DAILY 07/03 09 AC 07/07 PO 08/02 0859 0858 Metoprolol Tartrate 12.5 MG BID 07/03 0900 AC 0 07/07 PO 08/02 0859 0857 Mupirocin 1 APPLIC BID 07/03 09 AC 07/07 NASAL 07/07 2101 0858 Tamsulosin HCl 0.4 MG BEDTIME 07/02 2144 AC PO 08/01 Docusate Sodium 100 MG BID PRN PRN 07/02 2114 A C 07/06 PO 08/01 Labetalol HCl 10 MG Q6H PRN PRN 07/02 2114 AC IV 08/01 2113 Ondansetron HCl 4 MG Q4H PRN PRN 07/02 2114 AC IV 08/01 2113 24 hour I O ending at 0700: 07/07 0700 07/06 1900 Intake Total 360 1180 Output Total 1250 700 Balance -890 480 Intake, 0 Hemodialysis Intake, Oral 360 480 Intake, 700 Packed Cells Output, Urine 1250 700 Patient 85 kg Weight Weight Bed scale Measurement Method Vital Signs: Date Time Temp Pulse Resp B/P B/P Pulse O2 O2 F low FiO2 Mean Ox Delivery Rate 07/07 1300 72 15 117/64 85 96 07/07 1200 79 20 110/66 84 97 07/07 1100 71 23 103/61 78 94 07/07 1000 69 23 96/52 67 92 07/07 0900 78 20 116/62 84 95 07/07 0800 36.6 82 26 111/56 78 91 07/07 0700 83 29 117/62 83 94 07/07 0600 81 19 125/67 90 93 07/07 0500 81 27 96/51 69 92 07/07 0400 36.8 07/07 0400 80 25 111/58 78 94 07/07 0300 79 28 126/61 87 94 07/07 0200 82 29 120/65 87 93 07/07 0100 84 31 121/66 88 92 07/07 0001 91 25 133/65 91 94 07/07 0000 36.9 Room air 07/06 2300 74 29 131/70 95 94 07/06 2200 71 27 128/69 93 94 07/06 2100 74 29 124/68 90 94 07/06 2019 94 29 144/74 103 96 07/06 2000 36.6 Room air 07/06 1900 86 28 134/67 93 94 07/06 1700 75 29 131/69 94 93 07/06 1601 79 18 129/66 86 95 07/06 1600 36.4 79 18 129/66 87 95 Room air 07/06 1500 74 21 124/68 90 95 PATIENT WEIGHT: Weight (lb): 187 Weight (oz): 6.29 Weight (kg): 85.000 Physical Exam General appearance: alert, awake, oriented, no a cute distress, pleasant Head/Eyes: atraumatic, clear cornea ENT: moist mucosal membranes Neck: full range of motion, no JVD Cardiovascular: CV assessment: regular rate and rhythm, no murm ur Respiratory: decreased breath sounds, no distres s Abdomen: soft, non-tender, normal bowel sounds, no distention, no guarding Genitourinary: urinary catheter, urine Upper extremity: UE assessment: normal temperature, no edema Lower extremity: LE assessment: normal temperature, no edema 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ALTH: alert, oriented X 3, normal speech Psychiatry: normal affect Diagnosis, Assessment Plan Problem List/A P: 1. HTN (hypertension) 2. CLAUDETTE (acute kidney injury) 3. CAD (coronary artery disease) 4. Dyslipidemia 5. BPH (benign prostatic hyperplasia) Consultants: cardiology, cardiovascular surgery, nephrology Free Text DxA P Notes Free Text DxA P Notes: Mr. Arce is a pleasant 81 y/o M w/ PMHx: HTN, HLD presented to [facility] on 06/28/22 for chest pa in and sob. He was diagnosed NSTEMI w/ Trop was peaked 7600's, EKG w/ normal ST and CLAUDETTE w/ Cr 14 on admission. He underwent LHC on 07/[address] Layne which showed severe mLM 70% stenosis, pLAD diffuse 80% stenosis, mLA D 60% and focal 70% stenosis; pLCx 80% stenosis, dLCx 70% stenosis, pOM 60% stenosis; p RCA 40% stenosis, mRCA 60% stenosis and diffuse 50-60% dRCA. He transferred to [facility] for CABG. - CAD/NSTEMI. Per CTS. s/p LHC: multivessel disease. Carotid u/s -no stenosis CT chest small bilateral fluid effusion and ate lectasis. On statins, BB, ASA. Echo: LVEF 30-34% Plans for CABG- today- post-op per CTS- monitor - Acute Systolic HF with ischemic CMP LVEF 30-34 % strict I/Os, daily weights, fluid restriction, low NA diet diuresis per Nephrology no charly/arb/aldactone due to CLAUDETTE appears compensated GDMT on discharge follow post-op - CLAUDETTE. HD Per nephro. likly from obstructive uropathy. s/p waters cath. Renal ultrasound showed severe thickening of th e bladder, cholelitiasis. - HTN. Bp controlled. Cont - HLD. On statins. - Anemia. stable, monitor post-op continue supportive care Electronically Signed by Jyoti Browning NP on 0 07/07/22 at 1432 Electronically Signed by Liset Ennis MD on at 0834 RPT #:[id number] END OF REPORT 2022-07-07 08:33:00-00:00 [facility] ([facility]) Hospitalist Progress Note REPORT#:[id number] REPORT STATUS: Signed DATE:07/07/22 TIME: 832 PATIENT: SHERRI ARCE UNIT #: [id number] ROOM/BED: 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 Waiting for CABG today HPI: 81 y/o man with PMHx of HTN, Dyslipidemia [facility] with chest pain and found to have a NSTEMI and also acute renal failure. Underwent cardiac c ath yesterday and found to have severe CAD including left main disease. Transfer here f or CABG evaluation. He also underwent HD Thursday and Thursday of this week. HD catheter was place at [facility]. Currently not having any chest pain. Had chest pain with SOB when he presentted to the previous hospital. Objective General VS/I O: Vital Signs: Date Time Temp Pulse Resp B/P B/P Pulse O2 O2 F low FiO2 Mean Ox Delivery Rate 07/07 1300 72 15 117/64 85 96 07/07 1200 79 20 110/66 84 97 07/07 1100 71 23 103/61 78 94 07/07 1000 69 23 96/52 67 92 07/07 0900 78 20 116/62 84 95 07/07 0800 97.8 82 26 111/56 78 91 07/07 0700 83 29 117/62 83 94 07/07 0600 81 19 125/67 90 93 07/07 0500 81 27 96/51 69 92 07/07 0400 98.3 07/07 0400 80 25 111/58 78 94 07/07 0300 79 28 126/61 87 94 07/07 0200 82 29 120/65 87 93 07/07 0100 84 31 121/66 88 92 07/07 0001 91 25 133/65 91 94 07/07 0000 98.5 Room air 07/06 2300 74 29 131/70 95 94 07/06 2200 71 27 128/69 93 94 07/06 2100 74 29 124/68 90 94 07/06 2019 94 29 144/74 103 96 07/06 2000 97.9 Room air 07/06 1900 86 28 134/67 93 94 07/06 1700 75 29 131/69 94 93 07/06 1601 79 18 129/66 86 95 07/06 1600 97.6 79 18 129/66 87 95 Room air 24 hour I O ending at 0700: 07/07 0700 07/06 1900 Intake Total 360 1180 Output Total 1250 700 Balance -890 480 Intake, 0 Hemodialysis Intake, Oral 360 480 Intake, 700 Packed Cells Output, Urine 1250 700 Patient 85 kg Weight Weight Bed scale Measurement Method PATIENT WEIGHT: Weight (lb): 187 Weight (oz): 6.29 Weight (kg): 85.000 Medications: Active Meds + DC'd Last 24 Hrs Papaverine HCl (PAPAVERINE HCL) 0 .STK-MED ONE I V (DC) Magnesium Sulfate (MAGNESIUM SULFATE 2GM/SWFI 50 ML) 50 ML ONCE ONE IV ( DC) Acetaminophen (TYLENOL EXTRA STRENGTH) 1,000 MG PREOP ONCALL PO (CKD) Cefazolin Sodium (KEFZOL OR ANCEF) 2 GM PREOP IVF EMBRYOLOGIST IV (CKD) Gabapentin (NEURONTIN) 200 MG PREOP ONCALL PO (C KD) Metoprolol Tartrate (LOPRESSOR) 6.25 MG ONCE ONE PO (DC) Sodium Chloride (SODIUM CHLORIDE) 20 ML ASDIR IV Vancomycin HCl (VANCOMYCIN HCL) 1,250 MG PREOP O NCALL IV (CKD) Sodium Chloride (SODIUM CHLORIDE 0.9%) 250 ML Verapamil HCl (ISOPTIN) 16.6 MG .Q24H ONE IV (CK D) Heparin Sodium (Porcine) (HEPARIN SODIUM) 1,660 UNIT Sodium Bicarbonate (SODIUM BICARBONATE) 0.7 ML Nitroglycerin/Dextrose (NITROGLYCERIN 50MG/D5W 250ML) 8.3 MG Lactated Ringer's (LACTATED RINGERS) 949.5 ML Lidocaine HCl (LIDOCAINE HCL/PF) 2 ML PREOP ONCA LL LOCAL Lidocaine HCl (LIDOCAINE HCL/PF) 2 ML PREOP ONCA LL LOCAL Sodium Chloride (SODIUM CHLORIDE 0.9%) 500 ML NV EOP ONCALL IV Sodium Chloride (SODIUM CHLORIDE 0.9%) 500 ML NV EOP ONCALL IV Sodium Chloride (SODIUM CHLORIDE) 5 ML ASDIR PRN IV Sodium Chloride (SODIUM CHLORIDE) 10 ML ASDIR NV N IV Sodium Chloride (SODIUM CHLORIDE 0.9%) 250 ML DIR PRN IV Bisacodyl (DULCOLAX) 10 MG DAILY PRN PRN RECTAL Polyethylene Glycol (MIRALAX) 17 GM DAILY PO Senna/Docusate Sodium (SENOKOT S) 2 TAB DAILY PO Atorvastatin Calcium (LIPITOR) 20 MG BEDTIME PO Ceftriaxone Sodium (ROCEPHIN 1000MG VIAL) 1,000 MG Q24H IV Sodium Chloride (SODIUM CHLORIDE) 10 ML Albumin Human (ALBUMINAR-25%) 12.5 GM ASDIR PRN IV Heparin Sodium (Porcine) (HEPARIN SODIUM) 3,000 UNIT ASDIR PRN DIALYSIS Lidocaine HCl (LIDOCAINE HCL/PF) 0.5 ML ASDIR NV N I-DERMAL (CKD) Mannitol (Mannitol 20%) 12.5 GM ASDIR PRN IV Sodium Chloride (SODIUM CHLORIDE 0.9%) 2,000 ML ASDIR PRN IV Sodium Chloride (SODIUM CHLORIDE) 5 ML ASDIR PRN IV Sodium Chloride (SODIUM CHLORIDE) 10 ML ASDIR NV N IV Sodium Chloride (SODIUM CHLORIDE 0.9%) 250 ML A SDIR PRN IV Aspirin (ASPIRIN) 81 MG DAILY PO Metoprolol Tartrate (LOPRESSOR) 12.5 MG BID PO Mupirocin (BACTROBAN 2% 22 GM OINTMENT) 1 APPLIC BID NASAL Tamsulosin HCl (Flomax 0.4 mg) 0.4 MG BEDTIME PO Docusate Sodium (COLACE) 100 MG BID PRN PRN PO Labetalol HCl (LABETALOL HCL) 10 MG Q6H PRN PRN IV Ondansetron HCl (ZOFRAN) 4 MG Q4H PRN PRN IV Physical Exam General appearance: sleeping comfortably Head/Eyes: atraumatic, EOMI, normal conjunctiva/ sclera, normocephalic, PERRLA ENT: moist mucosal membranes Neck: full range of motion, no bruit/NL carotids , no JVD Cardiovascular: normal heart sounds, regular rat e rhythm Respiratory: aerating well, clear to auscultatio n, symmetric expansion, no distress Abdomen: non-tender, normal bowel sounds , soft, no distention, no guarding, no rebound Extremities: moves all, no cyanosis, no edema Musculoskeletal: normal inspection 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ALTH: alert, oriented X 3, normal speech, n o motor deficits, no sensory deficits Skin: intact, normal color, no rash Psychiatry: normal affect Results Findings/Data: Laboratory Tests 07/07 07/07 07/07 1147 0321 0321 Chemistry Sodium (134 - 147 mEq/L) 143 Potassium (3.4 - 5.0 mEq/L) 4.8 Chloride (100 - 108 mEq/L) 111 H Carbon Dioxide (21 - 33 mEq/l) 23 Anion Gap (0 - 20) 14 BUN (7 - 18 mg/dL) 37 H Creatinine (0.6 - 1.3 mg/dL) 4.5 H Glomerular Filtr Rate (70 - 80) 12.6 L Glucose (70 - 110 mg/dL) 93 POC Glucose (70 - 110 MG/DL) 97 Calcium (8.0 - 10.5 mg/dL) 8.6 Phosphorus (2.5 - 4.9 MG/DL) 4.1 Magnesium (1.80 - 2.40 mg/dL) 1.75 L Total Bilirubin (0.0 - 1.0 mg/dL) 0.30 AST (15 - 37 IUnit/L) 37 ALT (30 - 65 IUnit/L) 33 Total Alk Phosphatase (20 - 125 IUnit/L) 90 B-Natriuretic Peptide (0 - 100 PG/ML) 161.0 H Total Protein (6.4 - 8.2 g/dL) 6.9 Albumin (3.4 - 5.0 g/dL) 2.90 L Laboratory Tests 07/07 0544 Coagulation INR (0.8 - 1.2) 1.2 PTT (Agus) (25.0 - 39.5 Seconds) 33.5 PT Patient/Control Mix (9.3 - 12.9 SECONDS) 13. 4 H Laboratory Tests 07/07 0321 Hematology WBC (4.5 - 11.0 x10 3/uL) 11.6 H RBC (4.00 - 5.60 x10 6/uL) 3.58 L Hgb (12.5 - 16.9 g/dL) 10.8 L Hct (37.5 - 50.7 %) 34.3 L MCV (81.0 - 99.0 fL) 95.8 MCH (27.0 - 33.0 pg) 30.2 MCHC (33.0 - 37.0 g/dL) 31.5 L RDW (11.5 - 14.5 %) 17.2 H Plt Count (150 - 400 x10 3/uL) 162 MPV (7.0 - 9.0 fL) 10.9 H Neut % (Auto) (56.0 - 77.0 %) 65.7 Lymph % (Auto) (14.0 - 32.0 %) 10.6 L [place] % (Auto) (4.8 - 9.0 %) 9.5 H Eos % (Auto) (0.3 - 3.7 %) 11.7 H Baso % (Auto) (0.0 - 2.0 %) 0.8 Neut # (Auto) (2.0 - 7.6 x10 3/uL) 7.61 H Lymph # (Auto) (1.0 - 3.8 x10 3/uL) 1.23 [place] # (Auto) (0.1 - 0.8 x10 3/uL) 1.10 H Eos # (Auto) (0.0 - 0.2 x10 3/uL) 1.35 H Baso # (Auto) (0.0 - 0.2 x10 3/uL) 0.09 Abs Immat Gran (auto) (0.00 - 0.03 x10 3/uL) 0. 20 H Add Manual Diff NO Immature Gran % (0.0 - 2.0 %) 1.7 Nucleated RBC % (0 - 0 %) 0.0 Nucleated RBCs # (Man) (0.0 - 0.1 x10 3/uL) 0.0 0 Diagnosis, Assessment Plan Consultants: cardiology, cardiovascular surgery, nephrology Free Text DxA P Notes Free text DxA P notes: Assessment and plans: CAD (coronary artery disease) patient presented with NSTEMI and found to hve severe CAD. Cardiac cath shows: Left Main - Distal 70% LAD - Proximal 80% with another 60% and 70% les sions Cir - Proximal 80%,mid 80-90%, Distal 70% and O M 60% RCA - large dominant with proximal 40%, Mid 60% . Patient on ASA, BB and Statin Cardiology and CV surgeon consulted echo: ef 30-34%, mod hypokinesis of entire myoc ardium, grade 1 diastolic dysfunction Carotid Dopplers negative PFTs pending PT/OT Plan for CABG today 07/07 Acute systolic heart failure Echocardiac with estimated LVEF of 30 to 34% wi th grade 1 diastolic dysfunction -s/p Lasix 20 mg twice daily 07/05 -on metoprolol 12.5 mg bid -no ACEI/ spironolactione for CLAUDETTE -Strict I's and O's, daily weights -Start GDMT prior to discharge CLAUDETTE (acute kidney injury) No prior Hx of renal disease. hx of BPH and casimiro ated with Fosamax w/o improvement nd continue to h ave difficulty urinating. On admission was found to be on acute renal filaure and had received HD tw ice prior to arrival here ( thursday and thursday). Creatinine this am was 7.4, BUN 68 * Probably due to obstructive uropathy * waters already in place * Nephrology consuled for HD On daily hemodialysis as per nephrology HTN (hypertension) patient on metoprolol 12.5 mg BID, will adjust as needed On labetalol/hydralazine as needed Dyslipidemia on Lipitor 20mg po daliy. BPH (benign prostatic hyperplasia) Started on Flomax at the previous hospital, thais l continue with it. Waters catheter in place, continue Waters cathete r as per nephrology 07/05 Goiter Hx of Goiter and surgical resection. TSH 3.33, within normal limits. Patient is not on Thyroid medication. anemia of chronic kidney disease Hemoglobin 9.5, monitor Hypokalemia resolved UTI continue Rocephin for empiric treatment pend ing results of urine culture No growth for 48 hours DVT prophylaxis: Heparin 5000 units every 8 hour s Diet: N.p.o. for CABG CODE STATUS: Full code Disposition: On daily hemodi alysis, Waters catheter in place, plan for CABG today 07/07. Continue CCU care. Quality: Gen Med Crit Care VTE Prophylaxis VTE prophylaxis initiated: yes Current Medications Current medication review: I attest that the foregoing medication list in t he medical record is true, accurate, and complete to the best of my knowled ge. Advanced Care Plan 65 or Older Discussed with: patient Discussion included: living will (none), power of employment law attorney (none), code status ( full code) Electronically Signed by Radha Ward MD on [address] [facility] #:[id number] END OF REPORT 2022-07-06 15:45:00-00:00 HCACL [facility] Nephrology Progress Note REPORT#:[id number] REPORT STATUS: Signed DATE:07/06/22 TIME: 1545 PATIENT: SHERRI ARCE UNIT #: [id number] ROOM/BED: [place] [address] : 42 AGE: 81 SEX: M ATTEND: Radha Ward ADM AUTHOR: Jackie Wan MD * ALL edits or amendments must be made on the [email or web address] document * Subjective Chief complaint: Has no chest pain or shortness of breath Review of Systems Constitutional: Reports: generalized weakness. All systems rev neg: except as marked Objective General VS/I O: Vital Signs: Date Time Temp Pulse Resp B/P B/P Pulse O2 O2 F low FiO2 Mean Ox Delivery Rate 07/06 1500 74 21 124/68 90 95 07/06 1410 97.3 67 28 116/68 97 Nasal 2 cannula 07/06 1410 97.3 65 17 117/68 97 07/06 1405 97.6 69 25 115/66 97 07/06 1400 70 20 112/65 82 97 07/06 1400 97.3 72 26 112/65 98 07/06 1355 97.4 70 19 118/66 97 07/06 1350 97.3 68 25 118/66 98 07/06 1345 97.3 69 23 117/64 97 07/06 1340 97.3 71 27 113/63 97 07/06 1300 71 13 100/61 75 95 07/06 1300 97.8 71 16 100/61 95 07/06 1255 97.8 71 14 106/61 95 07/06 1250 97.6 70 17 106/58 97 07/06 1245 97.7 68 17 105/57 97 07/06 1240 97.7 69 17 103/59 97 07/06 1235 97.5 73 13 109/66 97 07/06 1230 97.5 75 14 98/57 97 07/06 1200 97.6 68 17 105/57 73 97 Room air 07/06 1200 71 19 99/62 77 98 07/06 1146 98.1 72 16 99/55 97 Room air 07/06 1100 74 25 94/53 68 95 07/06 1000 85 29 90/53 65 94 07/06 0900 90 23 107/57 77 94 07/06 0801 102 41 129/63 91 92 07/06 0800 98.5 90 25 129/63 85 92 Room air 07/06 0700 80 26 122/61 86 92 07/06 0653 79 15 95 07/06 0630 75 96 07/06 0600 77 14 113/61 82 94 07/06 0530 79 24 93 07/06 0500 84 40 114/72 88 93 07/06 0430 78 24 91 07/06 0400 76 27 117/59 82 91 07/06 0330 83 19 94 07/06 0300 80 28 123/61 86 93 07/06 0230 80 28 92 07/06 0200 80 27 115/64 84 92 07/06 0130 77 25 93 07/06 0100 80 30 127/64 89 93 07/06 0030 84 22 96 07/06 0000 75 28 124/65 89 91 07/05 2330 82 27 96 07/05 2300 71 23 115/60 82 93 07/05 2200 72 28 127/65 90 93 07/05 2130 72 31 95 07/05 2100 78 24 131/73 95 95 07/05 1999 97.8 07/05 1999 93 42 145/70 100 91 07/05 1900 89 33 129/60 87 94 07/05 1800 90 30 116/68 87 96 07/05 1700 79 28 104/60 77 97 07/05 1600 97.9 85 29 98/56 70 95 Room air 07/05 1600 85 29 98/ 72 95 24 hour I O ending at 0700: 07/06 0700 07/05 1900 Intake Total 500 600 Output Total 1400 1100 Balance -900 -500 Intake, 0 Hemodialysis Intake, Oral 500 600 Output, Urine 1400 1100 Patient 83.5 kg Weight Weight Bed scale Measurement Method PATIENT WEIGHT: Weight (lb): 184 Weight (oz): 1.38 Weight (kg): 83.500 Medications Active Meds + DC'd Last 24 Hrs Acetaminophen (TYLENOL EXTRA STRENGTH) 1,000 MG PREOP ONCALL PO (CKD) Cefazolin Sodium (KEFZOL OR ANCEF) 2 GM PREOP IVF EMBRYOLOGIST IV (CKD) Gabapentin (NEURONTIN) 200 MG PREOP ONCALL PO (C KD) Metoprolol Tartrate (LOPRESSOR) 6.25 MG ONCE ON E PO Sodium Chloride (SODIUM CHLORIDE) 20 ML ASDIR IV Vancomycin HCl (VANCOMYCIN HCL) 1,250 MG PREOP O NCALL IV (CKD) Sodium Chloride (SODIUM CHLORIDE 0.9%) 250 ML Verapamil HCl (ISOPTIN) 16.6 MG .Q24H ONE IV (CK D) Heparin Sodium (Porcine) (HEPARIN SODIUM) 1,660 UNIT Sodium Bicarbonate (SODIUM BICARBONATE) 0.7 ML Nitroglycerin/Dextrose (NITROGLYCERIN 50MG/D5W 250ML) 8.3 MG Lactated Ringer's (LACTATED RINGERS) 949.5 ML Bisacodyl (DULCOLAX) 10 MG DAILY PRN PRN RECTAL (DC) Bisacodyl (DULCOLAX) 10 MG DAILY PRN PRN RECTAL Polyethylene Glycol (MIRALAX) 17 GM DAILY PO Senna/Docusate Sodium (SENOKOT S) 2 TAB DAILY PO Furosemide (LASIX 20MG INJ) 20 MG BID 9A 5P IV ( DC) Atorvastatin Calcium (LIPITOR) 20 MG BEDTIME PO Ceftriaxone Sodium (ROCEPHIN 1000MG VIAL) 1,000 MG Q24H IV Sodium Chloride (SODIUM CHLORIDE) 10 ML Heparin Sodium (HEPARIN 5000 UNITS/ML) 5,000 UNI T Q8HR SUBQ (DC) Albumin Human (ALBUMINAR-25%) 12.5 GM ASDIR PRN IV Heparin Sodium (Porcine) (HEPARIN SODIUM) 3,000 UNIT ASDIR PRN DIALYSIS Lidocaine HCl (LIDOCAINE HCL/PF) 0.5 ML ASDIR NV N I-DERMAL (CKD) Mannitol (Mannitol 20%) 12.5 GM ASDIR PRN IV Sodium Chloride (SODIUM CHLORIDE 0.9%) 2,000 ML ASDIR PRN IV Sodium Chloride (SODIUM CHLORIDE) 5 ML ASDIR PRN IV Sodium Chloride (SODIUM CHLORIDE) 10 ML ASDIR NV N IV Sodium Chloride (SODIUM CHLORIDE 0.9%) 250 ML DIR PRN IV Aspirin (ASPIRIN) 81 MG DAILY PO Metoprolol Tartrate (LOPRESSOR) 12.5 MG BID PO Mupirocin (BACTROBAN 2% 22 GM OINTMENT) 1 APPLIC BID NASAL Tamsulosin HCl (Flomax 0.4 mg) 0.4 MG BEDTIME PO Docusate Sodium (COLACE) 100 MG BID PRN PRN PO Labetalol HCl (LABETALOL HCL) 10 MG Q6H PRN PRN IV Ondansetron HCl (ZOFRAN) 4 MG Q4H PRN PRN IV Physical Exam General appearance: alert, awake, oriented Head/eyes: atraumatic, normocephalic ENT: moist mucous membranes, normal nose Neck: non-tender, no JVD Cardiovascular: regular rate and rhythm, no murm ur Respiratory: normal breath sounds, no distress Abdomen: no guarding, no rebound Extremities: non-tender, no edema Skin: dry, no rash Results Findings/Data: Laboratory Tests 07/06 457 Chemistry Sodium (134 - 147 mEq/L) 143 Potassium (3.4 - 5.0 mEq/L) 4.4 Chloride (100 - 108 mEq/L) 112 H Carbon Dioxide (21 - 33 mEq/l) 23 Anion Gap (0 - 20) 12 BUN (7 - 18 mg/dL) 36 H Creatinine (0.6 - 1.3 mg/dL) 4.4 H Glomerular Filtr Rate (70 - 80) 12.9 L Glucose (70 - 110 mg/dL) 93 Calcium (8.0 - 10.5 mg/dL) 8.4 Phosphorus (2.5 - 4.9 MG/DL) 3.9 Magnesium (1.80 - 2.40 mg/dL) 1.75 L Laboratory Tests 07/06 457 Hematology WBC (4.5 - 11.0 x10 3/uL) 10.8 RBC (4.00 - 5.60 x10 6/uL) 3.01 L Hgb (12.5 - 16.9 g/dL) 9.3 L Hct (37.5 - 50.7 %) 30.2 L MCV (81.0 - 99.0 fL) 100.3 H MCH (27.0 - 33.0 pg) 30.9 MCHC (33.0 - 37.0 g/dL) 30.8 L RDW (11.5 - 14.5 %) 14.6 H Plt Count (150 - 400 x10 3/uL) 170 MPV (7.0 - 9.0 fL) 10.4 H Neut % (Auto) (56.0 - 77.0 %) 62.9 Lymph % (Auto) (14.0 - 32.0 %) 13.2 L [place] % (Auto) (4.8 - 9.0 %) 9.0 Eos % (Auto) (0.3 - 3.7 %) 12.7 H Baso % (Auto) (0.0 - 2.0 %) 0.8 Neut # (Auto) (2.0 - 7.6 x10 3/uL) 6.81 Lymph # (Auto) (1.0 - 3.8 x10 3/uL) 1.43 [place] # (Auto) (0.1 - 0.8 x10 3/uL) 0.98 H Eos # (Auto) (0.0 - 0.2 x10 3/uL) 1.38 H Baso # (Auto) (0.0 - 0.2 x10 3/uL) 0.09 Abs Immat Gran (auto) (0.00 - 0.03 x10 3/uL) 0. 15 H Add Manual Diff NO Immature Gran % (0.0 - 2.0 %) 1.4 Nucleated RBC % (0 - 0 %) 0.0 Nucleated RBCs # (Man) (0.0 - 0.1 x10 3/uL) 0. 00 Laboratory Tests 07/06 1350 Serology SARS-CoV-2 Ag (Rapid) (Negative) Negative Diagnosis, Assessment Plan Free Text A P: Assessment: 1-CLAUDETTE likely from urinary retention. 2- non-STEMI: multivessel disease w main left. 3- BPH 4-severe bilateral hydronephrosis 5-hypertension 6-hyperlipidemia Plan: -unknown Scr baseline. - He underwent LHC on 07/03. Had HD without UF on 07/04 for clearance -third treatment today on CTS request -one unit PRBC given today as per CTS request, shira medrano for surgery tomorrow - Ultrasound showed severe bilateral hydronephro sis -Excellent urine output volume 2900 mL. Suspect renal recovery. - continue Waters catheter and strict intake and output - CT surgery eval for CABG. plan for CABG on07/07 - okay for cardiac diet. Discussed with patient and cardiothoracic surger y team Consultants: cardiology, cardiovascular surgery, nephrology Electronically Signed by Jackie Wan MD on 07/08 at 1150 RPT #:[id number] END OF REPORT 2022-07-06 12:53:00-00:00 [facility]ACL [facility] Cardiothoracic Surgery Prog REPORT#:[id number] REPORT STATUS: Signed DATE:07/06/22 TIME: 1253 PATIENT: SHERRI ARCE UNIT #: [id number] [place] [facility] [place] [place] AGE: 81 SEX: M ATTEND: Srinath Kaur MD ADM AUTHOR: Rosalind Toribio P * ALL edits or amendments must be made on the el [employer] document * Subjective Chief complaint: Chest Pain Pre CABG eval Review of Systems Constitutional: Denies: chills, fever, malaise. Allergy/Immun: Denies: allergic reaction. Respiratory: Denies: SOB. Cardiovascular: Denies: chest pain, palpitations. GI: Denies: abdominal pain, nausea, vomiting. : Denies: dysuria, hematuria. Heme: Denies: bleeding. Neuro: Denies: dizziness, headache, vision change. All systems rev neg: except as marked Objective General VS/I O Last Documented: Result Date Time Pulse Ox 97 07/06 1245 B/P 105/57 07/06 1245 Temp 97.7 07/06 1245 Pulse 68 07/06 1245 Resp 17 07/06 1245 O2 Delivery Room air 07/06 1146 B/P Mean 68 07/06 1100 24 hour I O ending at 0700: 07/06 0700 07/05 1900 Intake Total 500 600 Output Total 1400 1100 Balance -900 -500 Intake, 0 Hemodialysis Intake, Oral 500 600 Output, Urine 1400 1100 Patient 184 lb Weight Weight Bed scale Measurement Method PATIENT WEIGHT: Weight (lb): 184 Weight (oz): 1.38 Weight (kg): 83.500 Physical Exam General appearance: alert, oriented, mental stat us normal, no respiratory distress HEENT: anicteric, mucosal membranes moist Neck: supple/no meningismus Cardiovascular: normal heart sounds, regular rat e rhythm Respiratory: aerating well, symmetric expansion, no distress Abdomen: soft, non-tender, no distention Genitourinary: waters, oN hd Extremities: moves all 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ALTH: alert, oriented X 3, normal speech, n o motor deficits Psychiatry: normal affect, normal mood Current Medications Medications: Active Meds + DC'd Last 24 Hrs Cefazolin Sodium (KEFZOL OR ANCEF) 2 GM PREOP IVF EMBRYOLOGIST IV (UNV) Metoprolol Tartrate (LOPRESSOR) 6.25 MG ONCE ONE PO (UNV) Vancomycin HCl (VANCOMYCIN HCL) 1,252.5 MG PREOP ONCALL IV (UNi) Sodium Chloride (SODIUM CHLORIDE 0.9%) 250 ML Verapamil HCl (ISOPTIN) 16.6 MG .Q24H ONE IV (UN V) Heparin Sodium (Porcine) (HEPARIN SODIUM) 1,660 UNIT Sodium Bicarbonate (SODIUM BICARBONATE) 0.7 ML Nitroglycerin/Dextrose (NITROGLYCERIN 50MG/D5W 250ML) 8.3 MG Lactated Ringer's (LACTATED RINGERS) 949.5 ML Acetaminophen (TYLENOL EXTRA STRENGTH) 1,000 MG PREOP ONCALL PO (UNV) Gabapentin (NEURONTIN) 200 MG PREOP ONCALL PO (U NV) Sodium Chloride (SODIUM CHLORIDE) 20 ML ASDIR IV (UNV) Bisacodyl (DULCOLAX) 10 MG DAILY PRN PRN RECTAL (DC) Bisacodyl (DULCOLAX) 10 MG DAILY PRN PRN RECTAL Polyethylene Glycol (MIRALAX) 17 GM DAILY PO Senna/Docusate Sodium (SENOKOT S) 2 TAB DAILY PO Furosemide (LASIX 20MG INJ) 20 MG BID 9A 5P IV ( DC) Atorvastatin Calcium (LIPITOR) 20 MG BEDTIME PO Ceftriaxone Sodium (ROCEPHIN 1000MG VIAL) 1,000 MG Q24H IV Sodium Chloride (SODIUM CHLORIDE) 10 ML Heparin Sodium (HEPARIN 5000 UNITS/ML) 5,000 UNI T Q8HR SUBQ Albumin Human (ALBUMINAR-25%) 12.5 GM ASDIR PRN IV Heparin Sodium (Porcine) (HEPARIN SODIUM) 3,000 UNIT ASDIR PRN DIALYSIS Lidocaine HCl (LIDOCAINE HCL/PF) 0.5 ML ASDIR NV N I-DERMAL (CKD) Mannitol (Mannitol 20%) 12.5 GM ASDIR PRN IV Sodium Chloride (SODIUM CHLORIDE 0.9%) 2,000 ML ASDIR PRN IV Sodium Chloride (SODIUM CHLORIDE) 5 ML ASDIR PRN IV Sodium Chloride (SODIUM CHLORIDE) 10 ML ASDIR NV N IV Sodium Chloride (SODIUM CHLORIDE 0.9%) 250 ML DIR PRN IV Aspirin (ASPIRIN) 81 MG DAILY PO Metoprolol Tartrate (LOPRESSOR) 12.5 MG BID PO Mupirocin (BACTROBAN 2% 22 GM OINTMENT) 1 APPLIC BID NASAL Tamsulosin HCl (Flomax 0.4 mg) 0.4 MG BEDTIME PO Docusate Sodium (COLACE) 100 MG BID PRN PRN PO Labetalol HCl (LABETALOL HCL) 10 MG Q6H PRN PRN IV Ondansetron HCl (ZOFRAN) 4 MG Q4H PRN PRN IV Results Findings/Data: Laboratory Tests 01/29 0458 Chemistry Sodium (134 - 147 mEq/L) 143 Potassium (3.4 - 5.0 mEq/L) 4.4 Chloride (100 - 108 mEq/L) 112 H Carbon Dioxide (21 - 33 mEq/l) 23 Anion Gap (0 - 20) 12 BUN (7 - 18 mg/dL) 36 H Creatinine (0.6 - 1.3 mg/dL) 4.4 H Glomerular Filtr Rate (70 - 80) 12.9 L Glucose (70 - 110 mg/dL) 93 Calcium (8.0 - 10.5 mg/dL) 8.4 Phosphorus (2.5 - 4.9 MG/DL) 3.9 Magnesium (1.80 - 2.40 mg/dL) 1.75 L Laboratory Tests 07/06 0458 Hematology WBC (4.5 - 11.0 x10 3/uL) 10.8 RBC (4.00 - 5.60 x10 6/uL) 3.01 L Hgb (12.5 - 16.9 g/dL) 9.3 L Hct (37.5 - 50.7 %) 30.2 L MCV (81.0 - 99.0 fL) 100.3 H MCH (27.0 - 33.0 pg) 30.9 MCHC (33.0 - 37.0 g/dL) 30.8 L RDW (11.5 - 14.5 %) 14.6 H Plt Count (150 - 400 x10 3/uL) 170 MPV (7.0 - 9.0 fL) 10.4 H Neut % (Auto) (56.0 - 77.0 %) 62.9 Lymph % (Auto) (14.0 - 32.0 %) 13.2 L [place] % (Auto) (4.8 - 9.0 %) 9.0 Eos % (Auto) (0.3 - 3.7 %) 12.7 H Baso % (Auto) (0.0 - 2.0 %) 0.8 Neut # (Auto) (2.0 - 7.6 x10 3/uL) 6.81 Lymph # (Auto) (1.0 - 3.8 x10 3/uL) 1.43 [place] # (Auto) (0.1 - 0.8 x10 3/uL) 0.98 H Eos # (Auto) (0.0 - 0.2 x10 3/uL) 1.38 H Baso # (Auto) (0.0 - 0.2 x10 3/uL) 0.09 Abs Immat Gran (auto) (0.00 - 0.03 x10 3/uL) 0. 15 H Add Manual Diff NO Immature Gran % (0.0 - 2.0 %) 1.4 Nucleated RBC % (0 - 0 %) 0.0 Nucleated RBCs # (Man) (0.0 - 0.1 x10 3/uL) 0.0 0 Quality: Trauma Gen Surg VTE Prophylaxis - General VTE prophylaxis initiated: yes Diagnosis, Assessment Plan Hospital course to date: This is a 81-year-old gentleman who presented to an outside hospital with complaints of chest pains while walking at his home on Thursday. He denies any previous history of coronary artery disease or o ther NE. He was seen and evaluated at [facility]. He was found to have a urinary tract infection with urinary retention and acute kidne y. He was started on dialysis via a left femoral temporary catheter. He underw ent dialysis on Thursday, Thursday. Renal has been consulted During his work-up at outside hospital he underw ent Left heart catheterization showing sever e Left Main 70%. LAD: Proximal diffuse 80% stenosis and then diffuse 60% in the midsegment and on the distal segment, there is focal 70% stenosis. Diagonal branches w ith luminal irregularities. Left circumflex, codominant circulation with pro ximal 80%, mid 80 to 90% and then in the OM, there is proximal 60%, distal le ft circumflex has a 70% stenosis. RCA large and dominant with proximal 4 0% stenosis, mid 60% stenosis and then diffuse 50% stenosi s all the way distally and the PLV and the PDA with luminal irregularities. CV surgery consulted for evaluation for coronary bypass graft. CAROTIDS - No carotid stenosis CT chest complete IMPRESSION: Small bilateral pleural effusions with bibasila r atelectasis. Echo: 1. Left ventricle: The cavity size is at the upp er limits of normal. Wall thickness is mildly increased. Systolic fu nction is severely reduced. The estimated ejection fraction is 30- 34%. Moderate hypokinesis of the entire myocardium. Doppler p arameters are consistent with abnormal left ventricular relax ation (grade 1 diastolic dysfunction). 2. Pericardium, extracardiac: A small pericardia l effusion is identified along the left ventricular free wall, along the right ventricular free wall, and along the right atrial free wall . Assessment/Plan 1) CAD Mutlivessel Will obtain echo,carotids. 2) CLAUDETTE Started dialysis on Creatine 7.3 Renal consulted. 3) BPH- Urinary retention. Waters in place Workup for CABG underway. Will get functional assessment with PT. PFT pending Carotid dopplers- No disease Echo Pending Dialyiss per Renal. Baseline Cr unknown. 07/04 07/04 Doing well today, alert, up in the chair. Denies chest pain Echocardiogram showed LVEF 30 to 34%, mild MR, t rivial TR CT chest images reviewed Encourage I-S and mobilization Creatinine 5.5 from 7.3, good urine output. Pao l US showed bilateral severe hydronephrosis. Plan for HD today and tomorrow Will tentatively schedule patient for surgery on Thursday. Patient seen and plan reviewed with Dr Schwarz 07/05 Remains in a stable condition, denies chest pain BUN 53, creatinine 5.4. Plan for hemodia lysis today and tomorrow for clearance He is also on Lasix 20 mg IV twice daily, urine output 1.1 L overnight We will calculate risk of surgery with STS score Encourage I-S and mobilization Will tentatively schedule patient for surgery on Thursday. Pt seen and plan reviewed with Dr Schwarz 07/06 BUN 36, creatinine 4.4. Plan for hemodialysis to day Awaiting CABG tomorrow Surgery, risks involved, STS score, benefits, co mplications and alternatives were explained to the patient. He acknow ledged understanding and is willing to proceed N.p.o. after midnight Patient seen and plan reviewed with Dr. Schwarz Consultants: cardiology, cardiovascular surgery, nephrology at [id number] at [id number] RPT #:[id number] END OF REPORT 2022-07-06 11:42:00-00:00 [facility] Hospitalist Progress Note REPORT#:[id number] REPORT STATUS: Signed DATE:07/06/22 TIME: 1142 PATIENT: SHERRI ARCE UNIT #: [id number] ROOM/BED: [place] [address] : 42 AGE: 81 SEX: M ATTEND: Radha Ward ADM AUTHOR: Radha Ward MD * ALL edits or amendments must be made on the el [employer]/computer document * Subjective Chief complaint: No complaint. Plan to have dialysis toda y, waiting for CABG tomorrow, GORGE Friedman DC'adeola HPI: 81 y/o man with PMHx of HTN, Dyslipidemia [facility] with chest pain and found to have a NSTEMI and also acute renal failure. Underwent cardiac c ath yesterday and found to have severe CAD including left main disease. Transfer here f or CABG evaluation. He also underwent HD Thursday and Thursday of this week. HD catheter was place at [facility]. Currently not having any chest pain. Had chest pain with SOB when he presentted to the previous hospital. Objective General VS/I O: Vital Signs: Date Time Temp Pulse Resp B/P B/P Pulse O2 O2 F low FiO2 Mean Ox Delivery Rate 07/06 1500 74 21 124/68 90 95 07/06 1410 97.3 67 28 116/68 97 Nasal 2 cannula 07/06 1410 97.3 65 17 117/68 97 07/06 1405 97.6 69 25 115/66 97 07/06 1400 70 20 112/65 82 97 07/06 1400 97.3 72 26 112/65 98 07/06 1355 97.4 70 19 118/66 97 07/06 1350 97.3 68 25 118/66 98 07/06 1345 97.3 69 23 117/64 97 07/06 1340 97.3 71 27 113/63 97 07/06 1300 71 13 100/61 75 95 07/06 1300 97.8 71 16 100/61 95 07/06 1255 97.8 71 14 106/61 95 07/06 1250 97.6 70 17 106/58 97 07/06 1245 97.7 68 17 105/57 97 07/06 1240 97.7 69 17 103/59 97 07/06 1235 97.5 73 13 109/66 97 07/06 1230 97.5 75 14 98/57 97 07/06 1200 97.6 68 17 105/57 73 97 Room air 07/06 1200 71 19 99/62 77 98 07/06 1146 98.1 72 16 99/55 97 Room air 07/06 1100 74 25 94/53 68 95 07/06 1000 85 29 90/53 65 94 07/06 0900 90 23 107/57 77 94 07/06 0801 102 41 129/63 91 92 07/06 0800 98.5 90 25 129/63 85 92 Room air 07/06 0700 80 26 122/61 86 92 07/06 0653 79 15 95 07/06 0630 75 96 07/06 0600 77 14 113/61 82 94 07/06 0530 79 24 93 07/06 0500 84 40 114/72 88 93 07/06 0430 78 24 91 07/06 0400 76 27 117/59 82 91 07/06 0330 83 19 94 07/06 0300 80 28 123/61 86 93 07/06 0230 80 28 92 07/06 0200 80 27 115/64 84 92 07/06 0130 77 25 93 07/06 0100 80 30 127/64 89 93 07/06 0030 84 22 96 07/06 0000 75 28 124/65 89 91 07/05 2330 82 27 96 07/05 2300 71 23 115/60 82 93 07/05 2200 72 28 127/65 90 93 07/05 2130 72 31 95 07/05 2100 78 24 131/73 95 95 07/05 1999 97.8 07/05 1999 93 42 145/70 100 91 07/05 1900 89 33 129/60 87 94 07/05 1800 90 30 116/68 87 96 07/05 1700 79 28 104/60 77 97 24 hour I O ending at 0700: 07/06 0700 07/05 1900 Intake Total 500 600 Output Total 1400 1100 Balance -900 -500 Intake, 0 Hemodialysis Intake, Oral 500 600 Output, Urine 1400 1100 Patient 83.5 kg Weight Weight Bed scale Measurement Method PATIENT WEIGHT: Weight (lb): 184 Weight (oz): 1.38 Weight (kg): 83.500 Medications: Active Meds + DC'd Last 24 Hrs Acetaminophen (TYLENOL EXTRA STRENGTH) 1,000 MG PREOP ONCALL PO (CKD) Cefazolin Sodium (KEFZOL OR ANCEF) 2 GM PREOP IVF EMBRYOLOGIST IV (CKD) Gabapentin (NEURONTIN) 200 MG PREOP ONCALL PO (C KD) Metoprolol Tartrate (LOPRESSOR) 6.25 MG ONCE ONE PO Sodium Chloride (SODIUM CHLORIDE) 20 ML ASDIR I V Vancomycin HCl (VANCOMYCIN HCL) 1,250 MG PREOP O NCALL IV (CKD) Sodium Chloride (SODIUM CHLORIDE 0.9%) 250 ML Verapamil HCl (ISOPTIN) 16.6 MG .Q24H ONE IV (CK D) Heparin Sodium (Porcine) (HEPARIN SODIUM) 1,660 UNIT Sodium Bicarbonate (SODIUM BICARBONATE) 0.7 ML Nitroglycerin/Dextrose (NITROGLYCERIN 50MG/D5W 250ML) 8.3 MG Lactated Ringer's (LACTATED RINGERS) 949.5 ML Bisacodyl (DULCOLAX) 10 MG DAILY PRN PRN RECTAL (DC) Bisacodyl (DULCOLAX) 10 MG DAILY PRN PRN RECTAL Polyethylene Glycol (MIRALAX) 17 GM DAILY PO Senna/Docusate Sodium (SENOKOT S) 2 TAB DAILY PO Furosemide (LASIX 20MG INJ) 20 MG BID 9A 5P IV ( DC) Atorvastatin Calcium (LIPITOR) 20 MG BEDTIME PO Ceftriaxone Sodium (ROCEPHIN 1000MG VIAL) 1,000 MG Q24H IV Sodium Chloride (SODIUM CHLORIDE) 10 ML Heparin Sodium (HEPARIN 5000 UNITS/ML) 5,000 UNI T Q8HR SUBQ (DC) Albumin Human (ALBUMINAR-25%) 12.5 GM ASDIR PRN IV Heparin Sodium (Porcine) (HEPARIN SODIUM) 3,000 UNIT ASDIR PRN DIALYSIS Lidocaine HCl (LIDOCAINE HCL/PF) 0.5 ML ASDIR NV N I-DERMAL (CKD) Mannitol (Mannitol 20%) 12.5 GM ASDIR PRN IV Sodium Chloride (SODIUM CHLORIDE 0.9%) 2,000 ML ASDIR PRN IV Sodium Chloride (SODIUM CHLORIDE) 5 ML ASDIR PRN IV Sodium Chloride (SODIUM CHLORIDE) 10 ML ASDIR NV N IV Sodium Chloride (SODIUM CHLORIDE 0.9%) 250 ML DIR PRN IV Aspirin (ASPIRIN) 81 MG DAILY PO Metoprolol Tartrate (LOPRESSOR) 12.5 MG BID PO Mupirocin (BACTROBAN 2% 22 GM OINTMENT) 1 APPLIC BID NASAL Tamsulosin HCl (Flomax 0.4 mg) 0.4 MG BEDTIME PO Docusate Sodium (COLACE) 100 MG BID PRN PRN PO Labetalol HCl (LABETALOL HCL) 10 MG Q6H PRN PRN IV Ondansetron HCl (ZOFRAN) 4 MG Q4H PRN PRN IV Physical Exam General appearance: alert, awake, oriented Head/Eyes: atraumatic, EOMI, normal conjunctiva/ sclera, normocephalic, PERRLA ENT: moist mucosal membranes Neck: full range of motion, no bruit/NL carotids , no JVD Cardiovascular: normal heart sounds, regular rat e rhythm Respiratory: aerating well, clear to auscultatio n, symmetric expansion, no distress Abdomen: non-tender, normal bowel sounds , soft, no distention, no guarding, no rebound Extremities: moves all, no cyanosis, no edema Musculoskeletal: normal inspection 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ALTH: alert, oriented X 3, normal speech, n o motor deficits, no sensory deficits Skin: intact, normal color, no rash Psychiatry: normal affect Results Findings/Data: Laboratory Tests 07/06 457 Chemistry Sodium (134 - 147 mEq/L) 143 Potassium (3.4 - 5.0 mEq/L) 4.4 Chloride (100 - 108 mEq/L) 112 H Carbon Dioxide (21 - 33 mEq/l) 23 Anion Gap (0 - 20) 12 BUN (7 - 18 mg/dL) 36 H Creatinine (0.6 - 1.3 mg/dL) 4.4 H Glomerular Filtr Rate (70 - 80) 12.9 L Glucose (70 - 110 mg/dL) 93 Calcium (8.0 - 10.5 mg/dL) 8.4 Phosphorus (2.5 - 4.9 MG/DL) 3.9 Magnesium (1.80 - 2.40 mg/dL) 1.75 L Laboratory Tests 07/06 457 Hematology WBC (4.5 - 11.0 x10 3/uL) 10.8 RBC (4.00 - 5.60 x10 6/uL) 3.01 L Hgb (12.5 - 16.9 g/dL) 9.3 L Hct (37.5 - 50.7 %) 30.2 L MCV (81.0 - 99.0 fL) 100.3 H MCH (27.0 - 33.0 pg) 30.9 MCHC (33.0 - 37.0 g/dL) 30.8 L RDW (11.5 - 14.5 %) 14.6 H Plt Count (150 - 400 x10 3/uL) 170 MPV (7.0 - 9.0 fL) 10.4 H Neut % (Auto) (56.0 - 77.0 %) 62.9 Lymph % (Auto) (14.0 - 32.0 %) 13.2 L [place] % (Auto) (4.8 - 9.0 %) 9.0 Eos % (Auto) (0.3 - 3.7 %) 12.7 H Baso % (Auto) (0.0 - 2.0 %) 0.8 Neut # (Auto) (2.0 - 7.6 x10 3/uL) 6.81 Lymph # (Auto) (1.0 - 3.8 x10 3/uL) 1.43 [place] # (Auto) (0.1 - 0.8 x10 3/uL) 0.98 H Eos # (Auto) (0.0 - 0.2 x10 3/uL) 1.38 H Baso # (Auto) (0.0 - 0.2 x10 3/uL) 0.09 Abs Immat Gran (auto) (0.00 - 0.03 x10 3/uL) 0. 15 H Add Manual Diff NO Immature Gran % (0.0 - 2.0 %) 1.4 Nucleated RBC % (0 - 0 %) 0.0 Nucleated RBCs # (Man) (0.0 - 0.1 x10 3/uL) 0. 00 Laboratory Tests 07/06 1350 Serology SARS-CoV-2 Ag (Rapid) (Negative) Negative Diagnosis, Assessment Plan Consultants: cardiology, cardiovascular surgery, nephrology Free Text DxA P Notes Free text DxA P notes: Assessment and plans: CAD (coronary artery disease) patient presented with NSTEMI and found to hve severe CAD. Cardiac cath shows: Left Main - Distal 70% LAD - Proximal 80% with another 60% and 70% les sions Cir - Proximal 80%,mid 80-90%, Distal 70% and O M 60% RCA - large dominant with proximal 40%, Mid 60% . Patient on ASA, BB and Statin Cardiology and CV surgeon consulted echo: ef 30-34%, mod hypokinesis of entire myoc ardium, grade 1 diastolic dysfunction Carotid Dopplers negative PFTs pending PT/OT 07/07 Plan for CABG on Thursday Acute systolic heart failure Echocardiac with estimated LVEF of 30 to 34% wi grade 1 diastolic dysfunction -s/p Lasix 20 mg twice daily 07/05 -on metoprolol 12.5 mg bid -no ACEI/ spironolactione for CLAUDETTE -Strict I's and O's, daily weights -Start GDMT prior to discharge CLAUDETTE (acute kidney injury) No prior Hx of renal disease. hx of BPH and casimiro ated with Fosamax w/o improvement nd continue to h ave difficulty urinating. On admission was found to be on acute renal filaure and had received HD tw ice prior to arrival here ( thursday and thursday). Creatinine this am was 7.4, BUN 68 * Probably due to obstructive uropathy * waters already in place * Nephrology consuled for HD On daily hemodialysis as per nephrology HTN (hypertension) patient on metoprolol 12.5 mg BID, will adjust as needed On labetalol/hydralazine as needed Dyslipidemia on Lipitor 20mg po daliy. BPH (benign prostatic hyperplasia) Started on Flomax at the previous hospital, thais l continue with it. Waters catheter in place, continue Waters cathete r as per nephrology 07/05 Goiter Hx of Goiter and surgical resection. TSH 3.33, within normal limits. Patient is not on Thyroid medication. anemia of chronic kidney disease Hemoglobin 9.5, monitor Hypokalemia resolved UTI continue Rocephin for empiric treatment pend ing results of urine culture No growth for 48 hours DVT prophylaxis: Heparin 5000 units every 8 hour s Diet: Cardiac CODE STATUS: Full code Disposition: On daily hemodialysis, Waters cathet er in place, plan for CABG on Friday 07/07. Continue CCU care. Quality: Gen Med Crit Care VTE Prophylaxis VTE prophylaxis initiated: yes Current Medications Current medication review: I attest that the foregoing medication list in t he medical record is true, accurate, and complete to the best of my knowled ge. Advanced Care Plan 65 or Older Discussed with: patient Discussion included: living will (none), power of employment law attorney (none), code status ( full code) Electronically Signed by Radha Ward MD on 3 at 1628 RPT #:[id number] END OF REPORT 2022-07-06 10:52:00-00:00 [facility] ([facility] Cardiology Progress Note REPORT#:[id number] REPORT STATUS: Signed DATE:07/06/22 TIME: 1052 PATIENT: SHERRI ARCE UNIT #: [id number] ROOM/BED: [place] [address] : 42 AGE: 81 SEX: M ATTEND: Radha Ward ADM AUTHOR: Kasi Katz MD * ALL edits or amendments must be made on the [email or web address] document * Subjective Chief complaint: doing ok Objective General VS/I O: 24 hour I O ending at 0700: 07/06 0700 07/05 1900 Intake Total 500 600 Output Total 1400 1100 Balance -900 -500 Intake, 0 Hemodialysis Intake, Oral 500 600 Output, Urine 1400 1100 Patient 83.5 kg Weight Weight Bed scale Measurement Method Vital Signs: Date Time Temp Pulse Resp B/P B/P Pulse O2 O2 F low FiO2 Mean Ox Delivery Rate 07/06 0900 90 23 107/57 77 94 07/06 0801 102 41 129/63 91 92 07/06 0800 98.5 90 25 129/63 85 92 Room air 07/06 0700 80 26 122/61 86 92 07/06 0653 79 15 95 07/06 0630 75 96 07/06 0600 77 14 113/61 82 94 07/06 0530 79 24 93 07/06 0500 84 40 114/72 88 93 07/06 0430 78 24 91 07/06 0400 76 27 117/59 82 91 07/06 0330 83 19 94 07/06 0300 80 28 123/61 86 93 07/06 0230 80 28 92 07/06 0200 80 27 115/64 84 92 07/06 0130 77 25 93 07/06 0100 80 30 127/64 89 93 07/06 0030 84 22 96 07/06 0000 75 28 124/65 89 91 07/05 2330 82 27 96 07/05 2300 71 23 115/60 82 93 07/05 2200 72 28 127/65 90 93 01/28 2130 72 31 95 07/05 2100 78 24 131/73 95 95 07/05 1999 97.8 07/05 1999 93 42 145/70 100 91 07/05 1900 89 33 129/60 87 94 07/05 1800 90 30 116/68 87 96 07/05 1700 79 28 104/60 77 97 07/05 1600 97.9 85 29 98/56 70 95 Room air 07/05 1600 85 29 98/56 72 95 07/05 1500 90 29 93/52 69 94 07/05 1400 104/58 75 07/05 1400 87 29 92 07/05 1359 87 32 93 07/05 1302 102 32 132/72 103 96 07/05 1238 98.3 81 22 109/58 97 Room air 07/05 1200 98.3 79 28 122/63 82 97 Room air 07/05 1200 79 28 122/63 85 97 07/05 1100 82 26 123/66 82 95 PATIENT WEIGHT: Weight (lb): 184 Weight (oz): 1.38 Weight (kg): 83.500 Medications: Active Meds + DC'd Last 24 Hrs Bisacodyl (DULCOLAX) 10 MG DAILY PRN PRN RECTAL (DC) Bisacodyl (DULCOLAX) 10 MG DAILY PRN PRN RECTAL Polyethylene Glycol (MIRALAX) 17 GM DAILY PO Senna/Docusate Sodium (SENOKOT S) 2 TAB DAILY PO Furosemide (LASIX 20MG INJ) 20 MG BID 9A 5P IV ( DC) Atorvastatin Calcium (LIPITOR) 20 MG BEDTIME PO Ceftriaxone Sodium (ROCEPHIN 1000MG VIAL) 1,000 MG Q24H IV Sodium Chloride (SODIUM CHLORIDE) 10 ML Heparin Sodium (HEPARIN 5000 UNITS/ML) 5,000 UNI T Q8HR SUBQ Albumin Human (ALBUMINAR-25%) 12.5 GM ASDIR PRN IV Heparin Sodium (Porcine) (HEPARIN SODIUM) 3,000 UNIT ASDIR PRN DIALYSIS Lidocaine HCl (LIDOCAINE HCL/PF) 0.5 ML ASDIR NV N I-DERMAL (CKD) Mannitol (Mannitol 20%) 12.5 GM ASDIR PRN IV Sodium Chloride (SODIUM CHLORIDE 0.9%) 2,000 ML ASDIR PRN IV Sodium Chloride (SODIUM CHLORIDE) 5 ML ASDIR PRN IV Sodium Chloride (SODIUM CHLORIDE) 10 ML ASDIR NV N IV Sodium Chloride (SODIUM CHLORIDE 0.9%) 250 ML DIR PRN IV Aspirin (ASPIRIN) 81 MG DAILY PO Metoprolol Tartrate (LOPRESSOR) 12.5 MG BID PO Mupirocin (BACTROBAN 2% 22 GM OINTMENT) 1 APPLIC BID NASAL Tamsulosin HCl (Flomax 0.4 mg) 0.4 MG BEDTIME PO Docusate Sodium (COLACE) 100 MG BID PRN PRN PO Labetalol HCl (LABETALOL HCL) 10 MG Q6H PRN PRN IV Ondansetron HCl (ZOFRAN) 4 MG Q4H PRN PRN IV Physical Exam General appearance: alert, awake, oriented Head/Eyes: atraumatic, clear cornea ENT: moist mucosal membranes Neck: full range of motion, no JVD Cardiovascular: CV assessment: regular rate and rhythm, no murm ur Respiratory: decreased breath sounds, no distres s Abdomen: soft, non-tender, normal bowel sounds, no distention, no guarding Genitourinary: urinary catheter, urine Upper extremity: UE assessment: normal temperature, no edema Lower extremity: LE assessment: normal temperature, no edema 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: alert, oriented X 3, normal speech Psychiatry: normal affect Results Findings/Data: Laboratory Tests 07/06 457 Chemistry Sodium (134 - 147 mEq/L) 143 Potassium (3.4 - 5.0 mEq/L) 4.4 Chloride (100 - 108 mEq/L) 112 H Carbon Dioxide (21 - 33 mEq/l) 23 Anion Gap (0 - 20) 12 BUN (7 - 18 mg/dL) 36 H Creatinine (0.6 - 1.3 mg/dL) 4.4 H Glomerular Filtr Rate (70 - 80) 12.9 L Glucose (70 - 110 mg/dL) 93 Calcium (8.0 - 10.5 mg/dL) 8.4 Phosphorus (2.5 - 4.9 MG/DL) 3.9 Magnesium (1.80 - 2.40 mg/dL) 1.75 L Laboratory Tests 07/06 457 Hematology WBC (4.5 - 11.0 x10 3/uL) 10.8 RBC (4.00 - 5.60 x10 6/uL) 3.01 L Hgb (12.5 - 16.9 g/dL) 9.3 L Hct (37.5 - 50.7 %) 30.2 L MCV (81.0 - 99.0 fL) 100.3 H MCH (27.0 - 33.0 pg) 30.9 MCHC (33.0 - 37.0 g/dL) 30.8 L RDW (11.5 - 14.5 %) 14.6 H Plt Count (150 - 400 x10 3/uL) 170 MPV (7.0 - 9.0 fL) 10.4 H Neut % (Auto) (56.0 - 77.0 %) 62.9 Lymph % (Auto) (14.0 - 32.0 %) 13.2 L [place] % (Auto) (4.8 - 9.0 %) 9.0 Eos % (Auto) (0.3 - 3.7 %) 12.7 H Baso % (Auto) (0.0 - 2.0 %) 0.8 Neut # (Auto) (2.0 - 7.6 x10 3/uL) 6.81 Lymph # (Auto) (1.0 - 3.8 x10 3/uL) 1.43 [place] # (Auto) (0.1 - 0.8 x10 3/uL) 0.98 H Eos # (Auto) (0.0 - 0.2 x10 3/uL) 1.38 H Baso # (Auto) (0.0 - 0.2 x10 3/uL) 0.09 Abs Immat Gran (auto) (0.00 - 0.03 x10 3/uL) 0. 15 H Add Manual Diff NO Immature Gran % (0.0 - 2.0 %) 1.4 Nucleated RBC % (0 - 0 %) 0.0 Nucleated RBCs # (Man) (0.0 - 0.1 x10 3/uL) 0.0 0 Laboratory Tests 07/06 0458 Chemistry Magnesium (1.80 - 2.40 mg/dL) 1.75 L Results: labs reviewed, vital signs reviewed, vi marylu signs stable Diagnosis, Assessment Plan Consultants: cardiology, cardiovascular surgery, nephrology Free Text DxA P Notes Free Text DxA P Notes: Mr. Arce is a pleasant 81 y/o M w/ PMHx: HTN, HLD presented to [facility] on 06/28/22 for chest pain and sob for several days and worsen on the day of admissi on. He was diagnosed NSTEMI w/ Trop was peaked 7600 's, EKG w/ normal ST and CLAUDETTE w/ Cr 14 on admissi on. He underwent LHC on 07/[address] Layne which showed severe mLM 70% stenosis, pLAD diffuse 80% stenosis, mLAD 60% and focal 70% stenosis; pLCx 80 % stenosis, dLCx 70% stenosis, pOM 60% stenosis; pRCA 40% stenosis, mRCA 60% stenosis a nd diffuse 50-60% dRCA. He transferred to [facility] for CABG. - CAD/NSTEMI. Per CTS. s/p LHC: multivessel disease. Carotid u/s -no stenosis CT chest small bilateral fluid effusion and ate lectasis. On statins, BB, ASA. Echo: LVEF 30-34% Plans for CABG- timing per CTS - Systolic HF with ischemic CMP strict I/Os, daily weights, fluid restriction, low NA diet on IV lasix and bb no charly/arb/aldactone due to CLAUDETTE monitor - CLAUDETTE. Per nephro. likly from obstructive uropathy. s/p waters cath. Renal ultrasound showed severe thickening of th e bladder, cholelitiasis. - HTN. Bp controlled. Cont - HLD. On statins. - Anemia. Hb 9.5 - UTI. Per IM. Discussed plan of care w/pt. 07/05/22: -CAD/NSTEMI -Echocardiogram showed LVEF 30 to 34%, mild MR, trivial TR -PLAN FOR ACB -ESRD - HD 07/06/22: -STABLE -ACB PLANNED Electronically Signed by Kasi Katz MD on 0 07/07/22 at 0809 RPT #:[id number] END OF REPORT 2022-07-05 14:48:00-00:00 [facility] ([facility]) Clinical Note REPORT#:[id number] REPORT STATUS: Signed DATE:07/05/22 TIME: 8 PATIENT: SHERRI ARCE UNIT #: [id number] ROOM/BED: [place] [address] : 42 AGE: 81 SEX: M ATTEND: Radha Ward ADM AUTHOR: Rosalind Toribio * ALL edits or amendments must be made on the [employer] document * Clinical Note Note: STS Adult Cardiac Surgery Isolated CAB Risk of Mortality: 8.282% Renal Failure: NA Permanent Stroke: 1.769% Prolonged Ventilation: 22.463% DSW Infection: 0.290% Reoperation: 3.281% Morbidity or Mortality: 29.115% Short Length of Stay: 12.095% Long Length of Stay: 17.210% at 1653 at 0835 RPT #:[id number] END OF REPORT 2022-07-05 12:44:00-00:00 [facility] Cardiothoracic Surgery Prog REPORT#:[id number] REPORT STATUS: Signed DATE:07/05/22 TIME: 1244 PATIENT: SHERRI ARCE UNIT #: [id number] ROOM/BED: [place] [address] : 42 AGE: 81 SEX: M ATTEND: Radha Ward ADM AUTHOR: Rosalind Toribio P * ALL edits or amendments must be made on the [employer] document * Subjective Chief complaint: Chest Pain Pre CABG eval Review of Systems Constitutional: Denies: chills, fever, malaise. Allergy/Immun: Denies: allergic reaction. Respiratory: Denies: SOB. Cardiovascular: Denies: chest pain, palpitations. GI: Denies: abdominal pain, nausea, vomiting. Heme: Denies: bleeding. Neuro: Denies: dizziness, headache, vision change. All systems rev neg: except as marked Objective General VS/I O Last Documented: Result Date Time Pulse Ox 96 07/05 0850 B/P 113/59 07/05 0850 O2 Delivery Room air 07/05 0850 Temp 97.8 07/05 0850 Pulse 85 07/05 0850 Resp 18 07/05 0850 B/P Mean 94 07/05 0801 24 hour I O ending at 0700: 07/05 0700 07/04 1900 Intake Total 620 1180.00 Output Total 1100 1475 Balance -480 -295.00 Intake, 0 Hemodialysis Intake, IV 100.00 Intake, Oral 620 1080 Output, Urine 1100 1475 Patient 185 lb 190 lb Weight Weight Bed scale Measurement Method PATIENT WEIGHT: Weight (lb): 184 Weight (oz): 15.49 Weight (kg): 83.900 Physical Exam General appearance: alert, oriented, mental stat us normal, no respiratory distress HEENT: anicteric, mucosal membranes moist Neck: supple/no meningismus Cardiovascular: normal heart sounds, regular rat e rhythm Respiratory: aerating well, symmetric expansion, no distress Abdomen: soft, non-tender, no distention Extremities: moves all 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ALTH: alert, oriented X 3, normal speech, n o motor deficits Psychiatry: normal affect, normal mood Current Medications Medications: Active Meds + DC'd Last 24 Hrs Furosemide (LASIX 20MG INJ) 20 MG BID 9A 5P IV Magnesium Sulfate (MAGNESIUM SULFATE 4GM/SWFI 10 0ML) 100 ML ONCE ONE IV (DC) Atorvastatin Calcium (LIPITOR) 20 MG BEDTIME PO Ceftriaxone Sodium (ROCEPHIN 1000MG VIAL) 1,000 MG Q24H IV Sodium Chloride (SODIUM CHLORIDE) 10 ML Heparin Sodium (HEPARIN 5000 UNITS/ML) 5,000 UNI T Q8HR SUBQ Albumin Human (ALBUMINAR-25%) 12.5 GM ASDIR PRN IV Heparin Sodium (Porcine) (HEPARIN SODIUM) 3,000 UNIT ASDIR PRN DIALYSIS Lidocaine HCl (LIDOCAINE HCL/PF) 0.5 ML ASDIR NV N I-DERMAL (CKD) Mannitol (Mannitol 20%) 12.5 GM ASDIR PRN IV Sodium Chloride (SODIUM CHLORIDE 0.9%) 2,000 ML ASDIR PRN IV Sodium Chloride (SODIUM CHLORIDE) 5 ML ASDIR PRN IV Sodium Chloride (SODIUM CHLORIDE) 10 ML ASDIR NV N IV Sodium Chloride (SODIUM CHLORIDE 0.9%) 250 ML DIR PRN IV Aspirin (ASPIRIN) 81 MG DAILY PO Metoprolol Tartrate (LOPRESSOR) 12.5 MG BID PO Mupirocin (BACTROBAN 2% 22 GM OINTMENT) 1 APPLIC BID NASAL Tamsulosin HCl (Flomax 0.4 mg) 0.4 MG BEDTIME PO Docusate Sodium (COLACE) 100 MG BID PRN PRN PO Labetalol HCl (LABETALOL HCL) 10 MG Q6H PRN PRN IV Ondansetron HCl (ZOFRAN) 4 MG Q4H PRN PRN IV Results Findings/Data: Laboratory Tests 07/05 0445 Chemistry Sodium (134 - 147 mEq/L) 142 Potassium (3.4 - 5.0 mEq/L) 4.2 Chloride (100 - 108 mEq/L) 110 H Carbon Dioxide (21 - 33 mEq/l) 25 Anion Gap (0 - 20) 12 BUN (7 - 18 mg/dL) 53 H Creatinine (0.6 - 1.3 mg/dL) 5.4 H Glomerular Filtr Rate (70 - 80) 10.1 L Glucose (70 - 110 mg/dL) 89 Calcium (8.0 - 10.5 mg/dL) 8.1 Magnesium (1.80 - 2.40 mg/dL) 2.07 Laboratory Tests 07/05 444 Hematology WBC (4.5 - 11.0 x10 3/uL) 11.2 H RBC (4.00 - 5.60 x10 6/uL) 3.10 L Hgb (12.5 - 16.9 g/dL) 9.6 L Hct (37.5 - 50.7 %) 30.3 L MCV (81.0 - 99.0 fL) 97.7 MCH (27.0 - 33.0 pg) 31.0 MCHC (33.0 - 37.0 g/dL) 31.7 L RDW (11.5 - 14.5 %) 14.8 H Plt Count (150 - 400 x10 3/uL) 193 MPV (7.0 - 9.0 fL) 10.8 H Neut % (Auto) (56.0 - 77.0 %) 61.6 Lymph % (Auto) (14.0 - 32.0 %) 12.0 L [place] % (Auto) (4.8 - 9.0 %) 10.9 H Eos % (Auto) (0.3 - 3.7 %) 13.1 H Baso % (Auto) (0.0 - 2.0 %) 0.6 Neut # (Auto) (2.0 - 7.6 x10 3/uL) 6.89 Lymph # (Auto) (1.0 - 3.8 x10 3/uL) 1.34 [place] # (Auto) (0.1 - 0.8 x10 3/uL) 1.22 H Eos # (Auto) (0.0 - 0.2 x10 3/uL) 1.46 H Baso # (Auto) (0.0 - 0.2 x10 3/uL) 0.07 Abs Immat Gran (auto) (0.00 - 0.03 x10 3/uL) 0. 20 H Add Manual Diff NO Immature Gran % (0.0 - 2.0 %) 1.8 Nucleated RBC % (0 - 0 %) 0.0 Nucleated RBCs # (Man) (0.0 - 0.1 x10 3/uL) 0. 00 Diagnosis, Assessment Plan Hospital course to date: This is a 81-year-old gentleman who presented to an outside hospital with complaints of chest pains while walking at his home on Thursday. He denies any previous history of coronary artery disease or o ther NE. He was seen and evaluated at [facility]. He was found to have a urinary tract infection with urinary retention and acute kidne y. He was started on dialysis via a left femoral temporary catheter. He underw ent dialysis on Thursday, Thursday. Renal has been consulted During his work-up at outside hospital he underw ent Left heart catheterization showing sever e Left Main 70%. LAD: Proximal diffuse 80% stenosis and then diffuse 60% in the midsegment and on the distal segment, there is focal 70% stenosis. Diagonal branches w ith luminal irregularities. Left circumflex, codominant circulation with pro ximal 80%, mid 80 to 90% and then in the OM, there is proximal 60%, distal le ft circumflex has a 70% stenosis. RCA large and dominant with proximal 4 0% stenosis, mid 60% stenosis and then diffuse 50% stenosi s all the way distally and the PLV and the PDA with luminal irregularities. CV surgery consulted for evaluation for coronary bypass graft. CAROTIDS - No carotid stenosis CT chest complete IMPRESSION: Small bilateral pleural effusions with bibasila r atelectasis. Echo: 1. Left ventricle: The cavity size is at the upp er limits of normal. Wall thickness is mildly increased. Systolic fu nction is severely reduced. The estimated ejection fraction is 30- 34%. Moderate hypokinesis of the entire myocardium. Doppler p arameters are consistent with abnormal left ventricular relax ation (grade 1 diastolic dysfunction). 2. Pericardium, extracardiac: A small pericardia l effusion is identified along the left ventricular free wall, along the right ventricular free wall, and along the right atrial free wall . Assessment/Plan 1) CAD Mutlivessel Will obtain echo,carotids. 2) CLAUDETTE Started dialysis on Creatine 7.3 Renal consulted. 3) BPH- Urinary retention. Waters in place Workup for CABG underway. Will get functional assessment with PT. PFT pending Carotid dopplers- No disease Echo Pending Dialyiss per Renal. Baseline Cr unknown. 07/04 07/04 Doing well today, alert, up in the chair. Denies chest pain Echocardiogram showed LVEF 30 to 34%, mild MR, t rivial TR CT chest images reviewed Encourage I-S and mobilization Creatinine 5.5 from 7.3, good urine output. Pao l US showed bilateral severe hydronephrosis. Plan for HD today and tomorrow Will tentatively schedule patient for surgery on Thursday. Patient seen and plan reviewed with Dr Schwarz 07/05 Remains in a stable condition, denies chest pain BUN 53, creatinine 5.4. Plan for hemodia lysis today and tomorrow for clearance He is also on Lasix 20 mg IV twice daily, urine output 1.1 L overnight We will calculate risk of surgery with STS score Encourage I-S and mobilization Will tentatively schedule patient for surgery on Thursday. Pt seen and plan reviewed with Dr Schwarz Consultants: cardiology, cardiovascular surgery, nephrology at 1248 at 0835 RPT #:[id number] END OF REPORT 2022-07-05 09:53:00-00:00 [facility] REPORT#:[id number] REPORT STATUS: Signed DATE:07/05/22 TIME: 952 PATIENT: SHERRI ARCE UNIT #: [id number] ROOM/BED: [place] [address] : 42 AGE: 81 SEX: M ATTEND: Radha Ward ADM AUTHOR: Kasi Katz MD * ALL edits or amendments must be made on the [email or web address] document * Subjective Chief complaint: doing ok Objective General VS/I O: 24 hour I O ending at 0700: 07/05 0700 07/04 1900 Intake Total 620 1180.00 Output Total 1100 1475 Balance -480 -295.00 Intake, 0 Hemodialysis Intake, IV 100.00 Intake, Oral 620 1080 Output, Urine 1100 1475 Patient 83.9 kg 86.183 kg Weight Weight Bed scale Measurement Method Vital Signs: Date Time Temp Pulse Resp B/P B/P Pulse O2 O2 F low FiO2 Mean Ox Delivery Rate 07/05 0850 97.8 85 18 113/59 96 Room air 07/05 0801 92 33 116/80 94 95 07/05 0700 79 18 116/70 89 94 07/05 0624 83 40 120/69 87 94 07/05 0500 79 15 118/66 84 93 07/05 0401 81 31 133/68 90 97 07/05 0400 97.9 07/05 0300 78 25 127/60 87 91 07/05 0200 78 15 118/63 84 93 07/05 0100 77 20 113/61 82 92 07/05 0000 97.0 07/05 0000 76 25 117/63 85 93 07/04 2313 68 25 111/58 77 93 07/04 2000 97.9 07/04 1910 79 34 133/72 96 96 07/04 1701 83 30 147/77 105 96 07/04 1600 98.2 75 29 125/77 93 94 Room air 07/04 1600 75 29 125/77 94 94 07/04 1545 97.5 74 20 136/71 07/04 1528 78 29 115/64 83 94 07/04 1400 75 24 129/69 93 97 07/04 1300 73 27 103/57 75 91 07/04 1200 97.5 66 20 117/65 07/04 1200 97.5 66 23 117/65 82 97 Room air 07/04 1200 66 23 117/65 86 97 07/04 1103 70 25 121/63 84 97 07/04 1004 85 28 113/62 81 94 PATIENT WEIGHT: Weight (lb): 184 Weight (oz): 15.49 Weight (kg): 83.900 Medications: Active Meds + DC'd Last 24 Hrs Potassium Chloride (POTASSIUM CHLORIDE 20MEQ TAB .ER) 40 MEQ ONCE ONE PO (DC) Furosemide (LASIX 20MG INJ) 20 MG BID 9A 5P IV Magnesium Sulfate (MAGNESIUM SULFATE 4GM/SWFI 10 0ML) 100 ML ONCE ONE IV (DC) Atorvastatin Calcium (LIPITOR) 20 MG BEDTIME PO Ceftriaxone Sodium (ROCEPHIN 1000MG VIAL) 1,000 MG Q24H IV Sodium Chloride (SODIUM CHLORIDE) 10 ML Heparin Sodium (HEPARIN 5000 UNITS/ML) 5,000 UNI T Q8HR SUBQ Albumin Human (ALBUMINAR-25%) 12.5 GM ASDIR PRN IV Heparin Sodium (Porcine) (HEPARIN SODIUM) 3,000 UNIT ASDIR PRN DIALYSIS Lidocaine HCl (LIDOCAINE HCL/PF) 0.5 ML ASDIR NV N I-DERMAL (CKD) Mannitol (Mannitol 20%) 12.5 GM ASDIR PRN IV Sodium Chloride (SODIUM CHLORIDE 0.9%) 2,000 ML ASDIR PRN IV Sodium Chloride (SODIUM CHLORIDE) 5 ML ASDIR PRN IV Sodium Chloride (SODIUM CHLORIDE) 10 ML ASDIR NV N IV Sodium Chloride (SODIUM CHLORIDE 0.9%) 250 ML DIR PRN IV Aspirin (ASPIRIN) 81 MG DAILY PO Metoprolol Tartrate (LOPRESSOR) 12.5 MG BID PO Mupirocin (BACTROBAN 2% 22 GM OINTMENT) 1 APPLIC BID NASAL Tamsulosin HCl (Flomax 0.4 mg) 0.4 MG BEDTIME PO Docusate Sodium (COLACE) 100 MG BID PRN PRN PO Labetalol HCl (LABETALOL HCL) 10 MG Q6H PRN PRN IV Ondansetron HCl (ZOFRAN) 4 MG Q4H PRN PRN IV Physical Exam General appearance: alert, awake, oriented Head/Eyes: atraumatic, clear cornea ENT: moist mucosal membranes Neck: full range of motion, no JVD Cardiovascular: CV assessment: regular rate and rhythm, no murm ur Respiratory: decreased breath sounds, no distres s Abdomen: soft, non-tender, normal bowel sounds, no distention, no guarding Genitourinary: urinary catheter, urine Upper extremity: UE assessment: normal temperature, no edema Lower extremity: LE assessment: normal temperature, no edema 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: alert, oriented X 3, normal speech Psychiatry: normal affect Results Findings/Data: Laboratory Tests 07/055 Chemistry Sodium (134 - 147 mEq/L) 142 Potassium (3.4 - 5.0 mEq/L) 4.2 Chloride (100 - 108 mEq/L) 110 H Carbon Dioxide (21 - 33 mEq/l) 25 Anion Gap (0 - 20) 12 BUN (7 - 18 mg/dL) 53 H Creatinine (0.6 - 1.3 mg/dL) 5.4 H Glomerular Filtr Rate (70 - 80) 10.1 L Glucose (70 - 110 mg/dL) 89 Calcium (8.0 - 10.5 mg/dL) 8.1 Magnesium (1.80 - 2.40 mg/dL) 2.07 Laboratory Tests 07/05 444 Hematology WBC (4.5 - 11.0 x10 3/uL) 11.2 H RBC (4.00 - 5.60 x10 6/uL) 3.10 L Hgb (12.5 - 16.9 g/dL) 9.6 L Hct (37.5 - 50.7 %) 30.3 L MCV (81.0 - 99.0 fL) 97.7 MCH (27.0 - 33.0 pg) 31.0 MCHC (33.0 - 37.0 g/dL) 31.7 L RDW (11.5 - 14.5 %) 14.8 H Plt Count (150 - 400 x10 3/uL) 193 MPV (7.0 - 9.0 fL) 10.8 H Neut % (Auto) (56.0 - 77.0 %) 61.6 Lymph % (Auto) (14.0 - 32.0 %) 12.0 L [place] % (Auto) (4.8 - 9.0 %) 10.9 H Eos % (Auto) (0.3 - 3.7 %) 13.1 H Baso % (Auto) (0.0 - 2.0 %) 0.6 Neut # (Auto) (2.0 - 7.6 x10 3/uL) 6.89 Lymph # (Auto) (1.0 - 3.8 x10 3/uL) 1.34 [place] # (Auto) (0.1 - 0.8 x10 3/uL) 1.22 H Eos # (Auto) (0.0 - 0.2 x10 3/uL) 1.46 H Baso # (Auto) (0.0 - 0.2 x10 3/uL) 0.07 Abs Immat Gran (auto) (0.00 - 0.03 x10 3/uL) 0. 20 H Add Manual Diff NO Immature Gran % (0.0 - 2.0 %) 1.8 Nucleated RBC % (0 - 0 %) 0.0 Nucleated RBCs # (Man) (0.0 - 0.1 x10 3/uL) 0.0 0 Laboratory Tests 07/05 0445 Chemistry Magnesium (1.80 - 2.40 mg/dL) 2.07 Results: labs reviewed, vital signs reviewed, vi marylu signs stable Diagnosis, Assessment Plan Consultants: cardiology, cardiovascular surgery, nephrology Free Text DxA P Notes Free Text DxA P Notes: Mr. Arce is a pleasant 81 y/o M w/ PMHx: HTN, HLD presented to [facility] on 06/28/22 for chest pain and sob for several days and worsen on the day of admissi on. He was diagnosed NSTEMI w/ Trop was peaked 7600 's, EKG w/ normal ST and CLAUDETTE w/ Cr 14 on admissi on. He underwent LHC on 07/[address] Layne which showed severe mLM 70% stenosis, pLAD diffuse 80% stenosis, mLAD 60% and focal 70% stenosis; pLCx 80 % stenosis, dLCx 70% stenosis, pOM 60% stenosis; pRCA 40% stenosis, mRCA 60% stenosis a nd diffuse 50-60% dRCA. He transferred to [facility] for CABG. - CAD/NSTEMI. Per CTS. s/p LHC: multivessel disease. Carotid u/s -no stenosis CT chest small bilateral fluid effusion and ate lectasis. On statins, BB, ASA. Echo: LVEF 30-34% Plans for CABG- timing per CTS - Systolic HF with ischemic CMP strict I/Os, daily weights, fluid restriction, low NA diet on IV lasix and bb no charly/arb/aldactone due to CLAUDETTE monitor - CLAUDETTE. Per nephro. likly from obstructive uropathy. s/p waters cath. Renal ultrasound showed severe thickening of th e bladder, cholelitiasis. - HTN. Bp controlled. Cont - HLD. On statins. - Anemia. Hb 9.5 - UTI. Per IM. Discussed plan of care w/pt. 07/05/22: -CAD/NSTEMI -Echocardiogram showed LVEF 30 to 34%, mild MR, trivial TR -PLAN FOR ACB -ESRD - HD Electronically Signed by Kasi Katz MD on 0 07/06/22 at 0936 RPT #:[id number] END OF REPORT 2022-07-05 09:47:00-00:00 [facility] Nephrology Progress Note REPORT#:[id number] REPORT STATUS: Signed DATE:07/05/22 TIME: 946 PATIENT: SHERRI ARCE UNIT #: [id number] ROOM/BED: [place] [address] : 42 AGE: 81 SEX: M ATTEND: Radha Ward MD ADM AUTHOR: Jackie Wan MD * ALL edits or amendments must be made on the [email or web address] document * Subjective Chief complaint: Has no chest pain or shortness of breath Review of Systems Constitutional: Reports: generalized weakness. All systems rev neg: except as marked Objective General VS/I O: Vital Signs: Date Time Temp Pulse Resp B/P B/P Pulse O2 O2 F low FiO2 Mean Ox Delivery Rate 07/05 0850 97.8 85 18 113/59 96 Room air 07/05 0801 92 33 116/80 94 95 07/05 0700 79 18 116/70 89 94 07/05 0624 83 40 120/69 87 94 07/05 0500 79 15 118/66 84 93 07/05 0401 81 31 133/68 90 97 07/05 0400 97.9 07/05 0300 78 25 127/60 87 91 07/05 0200 78 15 118/63 84 93 07/05 0100 77 20 113/61 82 92 07/05 0000 97.0 07/05 0000 76 25 117/63 85 93 07/04 2313 68 25 111/58 77 93 07/04 2000 97.9 07/04 1910 79 34 133/72 96 96 07/04 1701 83 30 147/77 105 96 07/04 1600 98.2 75 29 125/77 93 94 Room air 07/04 1600 75 29 125/77 94 94 07/04 1545 97.5 74 20 136/71 07/04 1528 78 29 115/64 83 94 07/04 1400 75 24 129/69 93 97 07/04 1300 73 27 103/57 75 91 07/04 1200 97.5 66 20 117/65 07/04 1200 97.5 66 23 117/65 82 97 Room air 07/04 1200 66 23 117/65 86 97 07/04 1103 70 25 121/63 84 97 07/04 1004 85 28 113/62 81 94 24 hour I O ending at 0700: 07/05 0700 07/04 1900 Intake Total 620 1180.00 Output Total 1100 1475 Balance -480 -295.00 Intake, 0 Hemodialysis Intake, IV 100.00 Intake, Oral 620 1080 Output, Urine 1100 1475 Patient 83.9 kg 86.183 kg Weight Weight Bed scale Measurement Method PATIENT WEIGHT: Weight (lb): 184 Weight (oz): 15.49 Weight (kg): 83.900 Medications Active Meds + DC'd Last 24 Hrs Furosemide (LASIX 20MG INJ) 20 MG BID 9A 5P IV ( DC) Atorvastatin Calcium (LIPITOR) 20 MG BEDTIME PO Ceftriaxone Sodium (ROCEPHIN 1000MG VIAL) 1,000 MG Q24H IV Sodium Chloride (SODIUM CHLORIDE) 10 ML Heparin Sodium (HEPARIN 5000 UNITS/ML) 5,000 UNI T Q8HR SUBQ Albumin Human (ALBUMINAR-25%) 12.5 GM ASDIR PRN IV Heparin Sodium (Porcine) (HEPARIN SODIUM) 3,000 UNIT ASDIR PRN DIALYSIS Lidocaine HCl (LIDOCAINE HCL/PF) 0.5 ML ASDIR NV N I-DERMAL (CKD) Mannitol (Mannitol 20%) 12.5 GM ASDIR PRN IV Sodium Chloride (SODIUM CHLORIDE 0.9%) 2,000 ML ASDIR PRN IV Sodium Chloride (SODIUM CHLORIDE) 5 ML ASDIR PRN IV Sodium Chloride (SODIUM CHLORIDE) 10 ML ASDIR NV N IV Sodium Chloride (SODIUM CHLORIDE 0.9%) 250 ML DIR PRN IV Aspirin (ASPIRIN) 81 MG DAILY PO Metoprolol Tartrate (LOPRESSOR) 12.5 MG BID PO Mupirocin (BACTROBAN 2% 22 GM OINTMENT) 1 APPLIC BID NASAL Tamsulosin HCl (Flomax 0.4 mg) 0.4 MG BEDTIME P O Docusate Sodium (COLACE) 100 MG BID PRN PRN PO Labetalol HCl (LABETALOL HCL) 10 MG Q6H PRN PRN IV Ondansetron HCl (ZOFRAN) 4 MG Q4H PRN PRN IV Dietitian nutrition assessment The data set between the solid lines has been im ported from the dietitian's assessment. BMI Calculated: 25.1 Nutrition related diagnosis: Nutrition diagnosis details: Nutrition problem: Nutrition etiology: Nutrition signs and symptoms: Nutrition prescription: Dietitian name: Assessment completed: Physical Exam General appearance: alert, awake, oriented Head/eyes: atraumatic, normocephalic ENT: moist mucous membranes, normal nose Neck: non-tender, no JVD Cardiovascular: regular rate and rhythm, no murm ur Respiratory: normal breath sounds, no distress Abdomen: no guarding, no rebound Extremities: non-tender, no edema Skin: dry, no rash Results Findings/Data: Laboratory Tests 07/05 07/05 0445 0445 Chemistry Sodium (134 - 147 mEq/L) 142 Potassium (3.4 - 5.0 mEq/L) 4.2 Chloride (100 - 108 mEq/L) 110 H Carbon Dioxide (21 - 33 mEq/l) 25 Anion Gap (0 - 20) 12 BUN (7 - 18 mg/dL) 53 H Creatinine (0.6 - 1.3 mg/dL) 5.4 H Glomerular Filtr Rate (70 - 80) 10.1 L Glucose (70 - 110 mg/dL) 89 Calcium (8.0 - 10.5 mg/dL) 8.1 Magnesium (1.80 - 2.40 mg/dL) 2.07 Laboratory Tests 07/05 0445 Hematology WBC (4.5 - 11.0 x10 3/uL) 11.2 H RBC (4.00 - 5.60 x10 6/uL) 3.10 L Hgb (12.5 - 16.9 g/dL) 9.6 L Hct (37.5 - 50.7 %) 30.3 L MCV (81.0 - 99.0 fL) 97.7 MCH (27.0 - 33.0 pg) 31.0 MCHC (33.0 - 37.0 g/dL) 31.7 L RDW (11.5 - 14.5 %) 14.8 H Plt Count (150 - 400 x10 3/uL) 193 MPV (7.0 - 9.0 fL) 10.8 H Neut % (Auto) (56.0 - 77.0 %) 61.6 Lymph % (Auto) (14.0 - 32.0 %) 12.0 L [place] % (Auto) (4.8 - 9.0 %) 10.9 H Eos % (Auto) (0.3 - 3.7 %) 13.1 H Baso % (Auto) (0.0 - 2.0 %) 0.6 Neut # (Auto) (2.0 - 7.6 x10 3/uL) 6.89 Lymph # (Auto) (1.0 - 3.8 x10 3/uL) 1.34 [place] # (Auto) (0.1 - 0.8 x10 3/uL) 1.22 H Eos # (Auto) (0.0 - 0.2 x10 3/uL) 1.46 H Baso # (Auto) (0.0 - 0.2 x10 3/uL) 0.07 Abs Immat Gran (auto) (0.00 - 0.03 x10 3/uL) 0. 20 H Add Manual Diff NO Immature Gran % (0.0 - 2.0 %) 1.8 Nucleated RBC % (0 - 0 %) 0.0 Nucleated RBCs # (Man) (0.0 - 0.1 x10 3/uL) 0.0 0 Diagnosis, Assessment Plan Free Text A P: Assessment: 1-CLAUDETTE likely from urinary retention. 2- non-STEMI: multivessel disease w main left. 3- BPH 4-severe bilateral hydronephrosis 5-hypertension 6-hyperlipidemia Plan: -unknown Scr baseline. - He underwent LHC on 07/03. Had HD without UF on 07/04 for clearance -second treatment today -CTS requesting third treatment on Thursday instea d of Thursday - Ultrasound showed severe bilateral hydronephro sis -Excellent urine output volume 2900 mL. Suspect renal recovery. - continue Waters catheter and strict intake and output - CT surgery eval for CABG. plan for CABG on07/07 - okay for cardiac diet. Discussed with patient and cardiothoracic surger y team Consultants: cardiology, cardiovascular surgery, nephrology Electronically Signed by Jackie Wan MD on 07/06 at 0634 RPT #:[id number] END OF REPORT 2022-07-05 09:13:00-00:00 [facility] Hospitalist Progress Note REPORT#:[id number] REPORT STATUS: Signed DATE:07/05/22 TIME: 912 PATIENT: SHERRI ARCE UNIT #: [id number] ROOM/BED: [place] [address] : 42 AGE: 81 SEX: M ATTEND: Radha Ward ADM AUTHOR: Radha Ward MD * ALL edits or amendments must be made on the [email or web address] document * Subjective Chief complaint: No complaint. Having dialysis now. Waiting for C ABG on 07/07/2022 HPI: 81 y/o man with PMHx of HTN, Dyslipidemia [facility] with chest pain and found to have a NSTEMI and also acute renal failure. Underwent cardiac c ath yesterday and found to have severe CAD including left main disease. Transfer here f or CABG evaluation. He also underwent HD Thursday and Thursday of this week. HD catheter was place at [facility]. Currently not having any chest pain. Had chest pain with SOB when he presentted to the previous hospital. Objective General VS/I O: Vital Signs: Date Time Temp Pulse Resp B/P B/P Pulse O2 O2 F low FiO2 Mean Ox Delivery Rate 07/05 1600 97.9 85 29 98/56 70 95 Room air 07/05 1600 85 29 98/56 72 95 07/05 1500 90 29 93/52 69 94 07/05 1400 104/58 75 07/05 1400 87 29 92 07/05 1359 87 32 93 07/05 1302 102 32 132/72 103 96 07/05 1238 98.3 81 22 109/58 97 Room air 07/05 1200 98.3 79 28 122/63 82 97 Room air 07/05 1200 79 28 122/63 85 97 07/05 1100 82 26 123/66 82 95 07/05 1000 82 25 100/57 73 94 07/05 0900 85 23 121/61 82 95 07/05 0850 97.8 85 18 113/59 96 Room air 07/05 0801 92 33 116/80 94 95 07/05 0800 98.1 92 33 116/80 92 95 Room air 07/05 0700 79 18 116/70 89 94 07/05 0624 83 40 120/69 87 94 07/05 0500 79 15 118/66 84 93 07/05 0401 81 31 133/68 90 97 07/05 0400 97.9 07/05 0300 78 25 127/60 87 91 07/05 0200 78 15 118/63 84 93 07/05 0100 77 20 113/61 82 92 07/05 0000 97.0 07/05 0000 76 25 117/63 85 93 07/04 2313 68 25 111/58 77 93 07/04 2000 97.9 07/04 1910 79 34 133/72 96 96 24 hour I O ending at 0700: 07/05 0700 07/04 1900 Intake Total 620 1180.00 Output Total 1100 1475 Balance -480 -295.00 Intake, 0 Hemodialysis Intake, IV 100.00 Intake, Oral 620 1080 Output, Urine 1100 1475 Patient 83.9 kg 86.183 kg Weight Weight Bed scale Measurement Method PATIENT WEIGHT: Weight (lb): 184 Weight (oz): 15.49 Weight (kg): 83.900 Medications: Active Meds + DC'd Last 24 Hrs Furosemide (LASIX 20MG INJ) 20 MG BID 9A 5P IV ( DC) Atorvastatin Calcium (LIPITOR) 20 MG BEDTIME PO Ceftriaxone Sodium (ROCEPHIN 1000MG VIAL) 1,000 MG Q24H IV Sodium Chloride (SODIUM CHLORIDE) 10 ML Heparin Sodium (HEPARIN 5000 UNITS/ML) 5,000 UNI T Q8HR SUBQ Albumin Human (ALBUMINAR-25%) 12.5 GM ASDIR PRN IV Heparin Sodium (Porcine) (HEPARIN SODIUM) 3,000 UNIT ASDIR PRN DIALYSIS Lidocaine HCl (LIDOCAINE HCL/PF) 0.5 ML ASDIR NV N I-DERMAL (CKD) Mannitol (Mannitol 20%) 12.5 GM ASDIR PRN IV Sodium Chloride (SODIUM CHLORIDE 0.9%) 2,000 ML ASDIR PRN IV Sodium Chloride (SODIUM CHLORIDE) 5 ML ASDIR PRN IV Sodium Chloride (SODIUM CHLORIDE) 10 ML ASDIR NV N IV Sodium Chloride (SODIUM CHLORIDE 0.9%) 250 ML DIR PRN IV Aspirin (ASPIRIN) 81 MG DAILY PO Metoprolol Tartrate (LOPRESSOR) 12.5 MG BID PO Mupirocin (BACTROBAN 2% 22 GM OINTMENT) 1 APPLIC BID NASAL Tamsulosin HCl (Flomax 0.4 mg) 0.4 MG BEDTIME PO Docusate Sodium (COLACE) 100 MG BID PRN PRN PO Labetalol HCl (LABETALOL HCL) 10 MG Q6H PRN PRN IV Ondansetron HCl (ZOFRAN) 4 MG Q4H PRN PRN IV Physical Exam General appearance: alert, awake, oriented Head/Eyes: atraumatic, EOMI, normal conjunctiva/ sclera, normocephalic, PERRLA ENT: moist mucosal membranes Neck: full range of motion, no bruit/NL carotids , no JVD Cardiovascular: normal heart sounds, regular rat e rhythm Respiratory: aerating well, clear to auscultatio n, symmetric expansion, no distress Abdomen: non-tender, normal bowel sounds , soft, no distention, no guarding, no rebound Extremities: moves all, no cyanosis, no edema Musculoskeletal: normal inspection 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[employer]: alert, oriented X 3, normal speech, n o motor deficits, no sensory deficits Skin: intact, normal color, no rash Psychiatry: normal affect Results Findings/Data: Laboratory Tests 07/05 07/05 0445 0445 Chemistry Sodium (134 - 147 mEq/L) 142 Potassium (3.4 - 5.0 mEq/L) 4.2 Chloride (100 - 108 mEq/L) 110 H Carbon Dioxide (21 - 33 mEq/l) 25 Anion Gap (0 - 20) 12 BUN (7 - 18 mg/dL) 53 H Creatinine (0.6 - 1.3 mg/dL) 5.4 H Glomerular Filtr Rate (70 - 80) 10.1 L Glucose (70 - 110 mg/dL) 89 Calcium (8.0 - 10.5 mg/dL) 8.1 Magnesium (1.80 - 2.40 mg/dL) 2.07 Laboratory Tests 07/05 0445 Hematology WBC (4.5 - 11.0 x10 3/uL) 11.2 H RBC (4.00 - 5.60 x10 6/uL) 3.10 L Hgb (12.5 - 16.9 g/dL) 9.6 L Hct (37.5 - 50.7 %) 30.3 L MCV (81.0 - 99.0 fL) 97.7 MCH (27.0 - 33.0 pg) 31.0 MCHC (33.0 - 37.0 g/dL) 31.7 L RDW (11.5 - 14.5 %) 14.8 H Plt Count (150 - 400 x10 3/uL) 193 MPV (7.0 - 9.0 fL) 10.8 H Neut % (Auto) (56.0 - 77.0 %) 61.6 Lymph % (Auto) (14.0 - 32.0 %) 12.0 L [place] % (Auto) (4.8 - 9.0 %) 10.9 H Eos % (Auto) (0.3 - 3.7 %) 13.1 H Baso % (Auto) (0.0 - 2.0 %) 0.6 Neut # (Auto) (2.0 - 7.6 x10 3/uL) 6.89 Lymph # (Auto) (1.0 - 3.8 x10 3/uL) 1.34 [place] # (Auto) (0.1 - 0.8 x10 3/uL) 1.22 H Eos # (Auto) (0.0 - 0.2 x10 3/uL) 1.46 H Baso # (Auto) (0.0 - 0.2 x10 3/uL) 0.07 Abs Immat Gran (auto) (0.00 - 0.03 x10 3/uL) 0. 20 H Add Manual Diff NO Immature Gran % (0.0 - 2.0 %) 1.8 Nucleated RBC % (0 - 0 %) 0.0 Nucleated RBCs # (Man) (0.0 - 0.1 x10 3/uL) 0.0 0 Diagnosis, Assessment Plan Consultants: cardiology, cardiovascular surgery, nephrology Free Text DxA P Notes Free text DxA P notes: Assessment and plans: CAD (coronary artery disease) patient presented with NSTEMI and found to hve severe CAD. Cardiac cath shows: Left Main - Distal 70% LAD - Proximal 80% with another 60% and 70% les sions Cir - Proximal 80%,mid 80-90%, Distal 70% and O M 60% RCA - large dominant with proximal 40%, Mid 60% . Patient on ASA, BB and Statin Cardiology and CV surgeon consulted echo: ef 30-34%, mod hypokinesis of entire myoc ardium, grade 1 diastolic dysfunction Carotid Dopplers negative Physical therapy evaluate and treat PFTs pending 07/07 Plan for CABG on Thursday Acute systolic heart failure Echocardiac with estimated LVEF of 30 to 34% wi grade 1 diastolic dysfunction -Lasix 20 mg twice daily 07/05 -Strict I's and O's, daily weights -Start GDMT prior to discharge CLAUDETTE (acute kidney injury) No prior Hx of renal disease. hx of BPH and casimiro ated with Fosamax w/o improvement nd continue to h ave difficulty urinating. On admission was found to be on acute renal filaure and had received HD tw ice prior to arrival here ( thursday and thursday). Creatinine this am was 7.4, BUN 68 * Probably due to obstructive uropathy * waters already in place * Nephrology consuled for HD On daily hemodialysis as per nephrology HTN (hypertension) patient on metoprolol 12.5 mg BID, will adjust as needed On labetalol/hydralazine as needed Dyslipidemia on Lipitor 20mg po daliy. BPH (benign prostatic hyperplasia) Started on Flomax at the previous hospital, thais l continue with it. Waters catheter in place, continue Waters cathete r as per nephrology 07/05 Goiter Hx of Goiter and surgical resection. TSH 3.33, within normal limits. Patient is not on Thyroid medication. anemia of chronic kidney disease Hemoglobin 9.5, monitor Hypokalemia resolved UTI continue Rocephin for empiric treatment pend ing results of urine culture No growth for 48 hours DVT prophylaxis: Heparin 5000 units every 8 hour s Diet: Cardiac CODE STATUS: Full code Disposition: On daily hemodialysis, Waters cathet er in place, plan for CABG on Friday 07/07. Continue CCU care. Quality: Gen Med Crit Care VTE Prophylaxis VTE prophylaxis initiated: yes Current Medications Current medication review: I attest that the foregoing medication list in t he medical record is true, accurate, and complete to the best of my knowled ge. Advanced Care Plan 65 or Older Discussed with: patient Discussion included: living will (none), power of employment law attorney (none), code status ( full code) Electronically Signed by Radha Ward MD on 3 at 1721 RPT #:[id number] END OF REPORT 2022-07-04 15:27:00-00:00 [facility] Hospitalist Progress Note REPORT#:[id number] REPORT STATUS: Signed DATE:07/04/22 TIME: 1527 PATIENT: SHERRI ARCE UNIT #: [id number] ROOM/BED: [place] [address] : 42 AGE: 81 SEX: M ATTEND: Maryam Crawford DO ADM AUTHOR: Los Crawford DO * ALL edits or amendments must be made on the [email or web address] document * Subjective Chief complaint: Patient seen and examined during dialysis No new complaints HPI: 81 y/o man with PMHx of HTN, Dyslipidemia [facility] with chest pain and found to have a NSTEMI and also acute renal failure. Underwent cardiac c ath yesterday and found to have severe CAD including left main disease. Transfer here f or CABG evaluation. He also underwent HD Thursday and Thursday of this week. HD catheter was place at [facility]. Currently not having any chest pain. Had chest pain with SOB when he presentted to the previous hospital. Objective General VS/I O: Vital Signs: Date Time Temp Pulse Resp B/P B/P Pulse O2 O2 F low FiO2 Mean Ox Delivery Rate 07/04 0931 96 30 144/72 94 95 07/04 0900 96 30 147/80 98 93 07/04 0842 88 19 139/76 97 94 07/04 0630 78 26 92 07/04 0600 77 26 91 07/04 0500 82 13 93 07/04 0458 80 16 93 07/04 0430 80 28 94 07/04 0400 76 26 92 07/04 0330 75 24 91 07/04 0300 76 28 94 07/04 0200 76 25 91 07/04 0100 76 30 94 07/04 0000 77 29 94 07/03 2300 72 28 94 07/03 2200 70 26 94 07/03 2100 76 26 113/62 81 92 07/03 2000 97.6 80 29 147/69 99 94 07/03 1900 80 27 131/66 91 92 07/03 1800 78 27 133/68 92 93 07/03 1701 91 32 149/101 119 89 07/03 1600 80 29 122/58 84 92 07/03 1552 78 31 127/60 86 91 07/03 1545 79 23 123/64 85 93 07/03 1530 73 26 127/63 88 95 24 hour I O ending at 0700: 07/04 0700 07/03 1900 Intake Total 240 Output Total 1100 1800 Balance -860 -1800 Intake, Oral 240 Output, Urine 1100 1800 PATIENT WEIGHT: Weight (lb): 190 Weight (oz): 11.2 Weight (kg): 86.183 Physical Exam General appearance: alert, awake, oriented Head/Eyes: atraumatic, EOMI, normal conjunctiva/ sclera, normocephalic, PERRLA ENT: moist mucosal membranes Neck: full range of motion, no bruit/NL carotids , no JVD Cardiovascular: normal heart sounds, regular rat e rhythm Respiratory: aerating well, clear to auscultatio n, symmetric expansion, no distress Abdomen: non-tender, normal bowel sounds , soft, no distention, no guarding, no rebound Extremities: moves all, no cyanosis, no edema Musculoskeletal: normal inspection 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ALTH: alert, oriented X 3, normal speech, n o motor deficits, no sensory deficits Skin: intact, normal color, no rash Diagnosis, Assessment Plan Consultants: cardiology, cardiovascular surgery, nephrology Free Text DxA P Notes Free text DxA P notes: 1. CAD (coronary artery disease) patient presented with NSTEMI and found to hve severe CAD. Cardiac cath shows: Left Main - Distal 70% LAD - Proximal 80% with another 60% and 70% les sions Cir - Proximal 80%,mid 80-90%, Distal 70% and O M 60% RCA - large dominant with proximal 40%, Mid 60% . Patient on ASA, BB and Statin Cardiology and CV surgeon consulted Obtain echocardiogram Carotid Dopplers negative Physical therapy evaluate and treat PFTs pending 07/07 Plan for CABG on Thursday 2. HTN (hypertension) patient on metoprolol 12.5 mg BID, will adjust as needed 3. Dyslipidemia on Lipitor 20mg po daliy. 4. CLAUDETTE (acute kidney injury) No prior Hx of renal disease. hx of BPH and casimiro ated with Fosamax w/o improvement nd continue to h ave difficulty urinating. On admission was found to be on acute renal filaure and had received HD tw ice prior to arrival here ( thursday and thursday). Creatinine this am was 7.4, BUN 68 * Probably due to obstructive uropathy * waters already in place * Nephrology consuled for HD 5. BPH (benign prostatic hyperplasia) Started on Flomax at the previous hospital, thais l continue with it. 6. Goiter Hx of Goiter and surgical resection. TSH 3.33, within normal limits. Patient is not on Thyroid medication. 7. anemia of chronic kidney disease Hemoglobin 9.5, monitor 8. Hypokalemia resolved 9. UTI continue Rocephin for empiric treatment pending results of urine culture 10. Acute systolic heart failure Echocardiac with estimated LVEF of 30 to 34% wi th grade 1 diastolic dysfunction -Lasix 20 mg twice daily -Strict I's and O's, daily weights -Start GDMT prior to discharge DVT prophylaxis: Heparin 5000 units every 8 hour s Diet: Cardiac CODE STATUS: Full code Disposition: Plan for CABG on Friday 07/07 Quality: [facility] Crit Care VTE Prophylaxis VTE prophylaxis initiated: yes Current Medications Current medication review: I attest that the foregoing medication list in t he medical record is true, accurate, and complete to the best of my knowled ge. Advanced Care Plan 65 or Older Discussed with: patient Discussion included: living will (none), power of employment law attorney (none), code status ( full code) at 1531 RPT #:[id number] END OF REPORT 2022-07-04 11:08:00-00:00 [facility] ([facility]) Nephrology Progress Note REPORT#:[id number] REPORT STATUS: Signed DATE:07/04/22 TIME: 1108 PATIENT: SHERRI ARCE UNIT #: [id number] ROOM/BED: [place] [address] : 42 AGE: 81 SEX: M ATTEND: Maryam Crawford DO ADM AUTHOR: Evelina Plaza MD * ALL edits or amendments must be made on the [email or web address] document * See Addendum Subjective Chief complaint: Has no chest pain or shortness of breath Objective General VS/I O: Vital Signs: Date Time Temp Pulse Resp B/P B/P Pulse O2 O2 F low FiO2 Mean Ox Delivery Rate 07/04 0931 96 30 144/72 94 95 07/04 0900 96 30 147/80 98 93 07/04 0842 88 19 139/76 97 94 07/04 0630 78 26 92 07/04 0600 77 26 91 07/04 0500 82 13 93 07/04 0458 80 16 93 07/04 0430 80 28 94 07/04 0400 76 26 92 07/04 0330 75 24 91 07/04 0300 76 28 94 07/04 0200 76 25 91 07/04 0100 76 30 94 07/04 0000 77 29 94 07/03 2300 72 28 94 07/03 2200 70 26 94 07/03 2100 76 26 113/62 81 92 07/03 2000 97.6 80 29 147/69 99 94 07/03 1900 80 27 131/66 91 92 07/03 1800 78 27 133/68 92 93 07/03 1701 91 32 149/101 119 89 07/03 1600 80 29 122/58 84 92 07/03 1552 78 31 127/60 86 91 07/03 1545 79 23 123/64 85 93 07/03 1530 73 26 127/63 88 95 07/03 1515 74 31 144/69 100 96 07/03 1500 76 27 145/68 97 95 07/03 1445 74 25 134/76 98 96 07/03 1430 73 32 137/70 97 95 07/03 1415 75 31 126/70 93 94 07/03 1400 74 24 124/65 88 95 07/03 1345 74 25 122/60 87 95 07/03 1330 72 32 133/75 99 96 07/03 1320 97.3 73 32 136/75 96 Room air 07/03 1316 73 31 136/75 101 95 07/03 1300 77 29 144/74 102 96 07/03 1247 73 28 143/76 103 97 07/03 1230 77 29 95 24 hour I O ending at 0700: 07/04 0700 07/03 1900 Intake Total 240 Output Total 1100 1800 Balance -860 -1800 Intake, Oral 240 Output, Urine 1100 1800 PATIENT WEIGHT: Weight (lb): 190 Weight (oz): 11.2 Weight (kg): 86.500 Medications Active Meds + DC'd Last 24 Hrs Magnesium Sulfate (MAGNESIUM SULFATE 4GM/SWFI 10 0ML) 100 ML ONCE ONE IV Atorvastatin Calcium (LIPITOR) 20 MG BEDTIME PO Ceftriaxone Sodium (ROCEPHIN 1000MG VIAL) 1,000 MG Q24H IV Sodium Chloride (SODIUM CHLORIDE) 10 ML Heparin Sodium (HEPARIN 5000 UNITS/ML) 5,000 UNI T Q8HR SUBQ Albumin Human (ALBUMINAR-25%) 12.5 GM ASDIR PRN IV Heparin Sodium (Porcine) (HEPARIN SODIUM) 3,000 UNIT ASDIR PRN DIALYSIS Lidocaine HCl (LIDOCAINE HCL/PF) 0.5 ML ASDIR NV N I-DERMAL (CKD) Mannitol (Mannitol 20%) 12.5 GM ASDIR PRN IV Sodium Chloride (SODIUM CHLORIDE 0.9%) 2,000 ML ASDIR PRN IV Sodium Chloride (SODIUM CHLORIDE) 5 ML ASDIR PRN IV Sodium Chloride (SODIUM CHLORIDE) 10 ML ASDIR NV N IV Sodium Chloride (SODIUM CHLORIDE 0.9%) 250 ML DIR PRN IV Aspirin (ASPIRIN) 81 MG DAILY PO Metoprolol Tartrate (LOPRESSOR) 12.5 MG BID PO Mupirocin (BACTROBAN 2% 22 GM OINTMENT) 1 APPLIC BID NASAL Tamsulosin HCl (Flomax 0.4 mg) 0.4 MG BEDTIME PO Docusate Sodium (COLACE) 100 MG BID PRN PRN PO Labetalol HCl (LABETALOL HCL) 10 MG Q6H PRN PRN IV Ondansetron HCl (ZOFRAN) 4 MG Q4H PRN PRN IV Physical Exam General appearance: alert, awake, oriented Head/eyes: atraumatic, normocephalic ENT: moist mucous membranes, normal nose Neck: non-tender, no JVD Cardiovascular: regular rate and rhythm, no murm ur Respiratory: normal breath sounds, no distress Abdomen: no guarding, no rebound Extremities: non-tender, no edema Skin: dry, no rash Results Findings/Data: Laboratory Tests 07/04 424 Chemistry Sodium (134 - 147 mEq/L) 143 Potassium (3.4 - 5.0 mEq/L) 3.6 Chloride (100 - 108 mEq/L) 112 H Carbon Dioxide (21 - 33 mEq/l) 23 Anion Gap (0 - 20) 12 BUN (7 - 18 mg/dL) 45 H Creatinine (0.6 - 1.3 mg/dL) 5.5 H Glomerular Filtr Rate (70 - 80) 9.9 L Glucose (70 - 110 mg/dL) 94 Calcium (8.0 - 10.5 mg/dL) 7.8 L Phosphorus (2.5 - 4.9 MG/DL) 4.0 Magnesium (1.80 - 2.40 mg/dL) 1.40 L Laboratory Tests 07/04 424 Hematology WBC (4.5 - 11.0 x10 3/uL) 9.7 RBC (4.00 - 5.60 x10 6/uL) 3.11 L Hgb (12.5 - 16.9 g/dL) 9.5 L Hct (37.5 - 50.7 %) 30.1 L MCV (81.0 - 99.0 fL) 96.8 MCH (27.0 - 33.0 pg) 30.5 MCHC (33.0 - 37.0 g/dL) 31.6 L RDW (11.5 - 14.5 %) 15.3 H Plt Count (150 - 400 x10 3/uL) 182 MPV (7.0 - 9.0 fL) 10.5 H Neut % (Auto) (56.0 - 77.0 %) 61.8 Lymph % (Auto) (14.0 - 32.0 %) 12.1 L [place] % (Auto) (4.8 - 9.0 %) 10.8 H Eos % (Auto) (0.3 - 3.7 %) 12.8 H Baso % (Auto) (0.0 - 2.0 %) 0.7 Neut # (Auto) (2.0 - 7.6 x10 3/uL) 5.98 Lymph # (Auto) (1.0 - 3.8 x10 3/uL) 1.17 [place] # (Auto) (0.1 - 0.8 x10 3/uL) 1.04 H Eos # (Auto) (0.0 - 0.2 x10 3/uL) 1.24 H Baso # (Auto) (0.0 - 0.2 x10 3/uL) 0.07 Abs Immat Gran (auto) (0.00 - 0.03 x10 3/uL) 0. 17 H Add Manual Diff NO Immature Gran % (0.0 - 2.0 %) 1.8 Nucleated RBC % (0 - 0 %) 0.0 Nucleated RBCs # (Man) (0.0 - 0.1 x10 3/uL) 0.0 0 Laboratory Tests 07/03 1223 Serology Hepatitis A IgM Ab (NON REACT. INDEX) NON REACT BRANDON Hep Bs Antigen (NonReactive INDEX) NON REACTIVE Hep B Core IgM Ab (NON REACT. INDEX) NON REACT BRANDON Hepatitis C Antibody (NON REACT. INDEX) NON BRITTNEY CTIVE Radiology data: Recent Impressions: ULTRASOUND - DUP VEIN WOJCIECH 07/03 1206 Report Impression - Status: SIGNED Entered: 07/03/2022 1326 IMPRESSION: 1. The right greater saphenous vein measures 0.2 4 mm in the upper thigh, 0.22 mm in the mid thigh, 0.20 mm in the lower thigh, 0.17 mm in the upper calf, 0.21 mm in the mid calf, a nd 0.17 mm in the distal calf. 2. The left greater saphenous vein measures 0.27 mm in the upper thigh, 0.29 mm in the mid thigh, 0.30 mm in the lower thigh, 0.23 mm in the upper calf, 0.24 mm in the mid calf, a nd 0.19 mm in the distal calf. Impression By: [email or web address] Mario Norwood ULTRASOUND - US RETROPERITONEAL COM 07/03 1208 Report Impression - Status: SIGNED Entered: 07/03/2022 1552 IMPRESSION: 1. Bilateral severe hydronephrosis. 2. Severe thickening of the urinary bladder wall with a Waters catheter in place. 3. 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 4. Cholelithiasis Impression By: [email or web address] - Noreen Caceres ULTRASOUND - DUP EXTRACRANIAL WOJCIECH 07/03 1208 Report Impression - Status: SIGNED Entered: 07/03/2022 1256 IMPRESSION: No flow-limiting proximal internal carotid arter ial stenosis. REFERENCES: SRU CRITERIA. The degree of internal carotid art sunita stenosis is based on criteria defined by the Society of Radi ologists in Ultrasound (SRU). Normal is no stenosis. Mild is less than 50% stenosis. Moderate is 50-69% stenosis. Severe is greater than 69% stenosis to near occlusion. Near occlusion is a markedly narrowed lumen. Total occlusion is no detectable patent l umen. Impression By: [email or web address] - Brett Berry M.D. CAT SCAN - CT CHEST W/O CONTRAST 07/03 1227 Report Impression - Status: SIGNED Entered: 07/03/2022 1313 IMPRESSION: Small bilateral pleural effusions with bibasilar atelectasis. Impression By: [email or web address] - Ranjan Boo M.D. Diagnosis, Assessment Plan Free Text A P: Assessment: 1-CLAUDETTE likely from urinary retention. 2- non-STEMI: multivessel disease w main left. 3- BPH 4-severe bilateral hydronephrosis 5-hypertension 6-hyperlipidemia Plan: -unknown Scr baseline. - He underwent LHC on 07/03. Had HD without UF on 07/04 for clearance - Ultrasound showed severe bilateral hydronephro sis -Excellent urine output volume 2900 mL. Suspect renal recovery. -Withdrawn HD for clearance today and tomorrow f or more clearance. - continue Waters catheter and strict intake and output - CT surgery eval for CABG. plan for CABG on07/07 - okay for cardiac diet. Discussed with patient and cardiothoracic surgeo n. Consultants: cardiology, cardiovascular surgery, nephrology Electronically Signed by Evelina Plaza MD on at 1112 Addendum 1: 07/04/22 1129 by Evelina Plaza MD Echo with EF 30-34% and grade I diastolic start lasix 20 mg BID. continue strict IO replaced K and Mg. Electronically Signed by Evelina Plaza MD on at 1130 RPT #:[id number] END OF REPORT 2022-07-04 09:10:00-00:00 [facility] ([facility] Cardiology Progress Note REPORT#:[id number] REPORT STATUS: Signed DATE:07/04/22 TIME: 909 PATIENT: SHERRI ARCE UNIT #: [id number] ROOM/BED: [place] [address] : 42 AGE: 81 SEX: M ATTEND: Maryam Crawford DO ADM AUTHOR: Jyoti Browning LAUNDRY ASSISTANT * ALL edits or amendments must be made on the [email or web address] document * Jyoti Browning 07/04/22 0910: Subjective Chief complaint: doing ok Objective General VS/I O: Laboratory Tests 07/04/22 0425: [Embedded Image Not Available] 07/03/22 0623: [Embedded Image Not Available] Current Medications Sig/Earl Start time Last Medication Dose Route Stop Time Status Admin Potassium Chloride 40 MEQ ONCE ONE 07/04 1145 D C PO 07/04 1146 Furosemide 20 MG BID 9A 5P 07/04 1130 AC IV 07/05 1701 Magnesium Sulfate 100 ML ONCE ONE 07/04 0900 AC 07/04 IV 07/04 1259 0958 Atorvastatin Calcium 20 MG BEDTIME 07/03 2100 A C 07/03 PO 08/02 Ceftriaxone Sodium 1,000 MG Q24H 07/03 1600 AC 07/03 Sodium Chloride 10 ML IV 07/08 1559 1615 Heparin Sodium 5,000 UNIT Q8HR 07/03 1400 AC SUBQ 08/02 1359 0550 Albumin Human 12.5 GM ASDIR PRN 07/03 1200 AC IV 08/03 1155 Heparin Sodium 3,000 UNIT ASDIR PRN 07/03 1200 AC 07/03 (Porcine) DIALYSIS 08/02 1159 1339 Lidocaine HCl 0.5 ML ASDIR PRN 07/03 1200 CKD I-DERMAL 08/03 1155 Mannitol 12.5 GM ASDIR PRN 07/03 1200 AC IV 08/03 1155 Sodium Chloride 2,000 ML ASDIR PRN 07/03 1200 A C 07/03 IV 08/03 1155 1338 Sodium Chloride 5 ML ASDIR PRN 07/03 1200 AC IV 08/02 1159 Sodium Chloride 10 ML ASDIR PRN 07/03 1200 AC 0 07/03 IV 08/02 1159 1340 Sodium Chloride 250 ML ASDIR PRN 07/03 1200 AC IV 08/02 1159 Aspirin 81 MG DAILY 07/03 09 AC 07/04 PO 08/02 0859 0957 Metoprolol Tartrate 12.5 MG BID 07/03 09 AC 0 07/04 PO 08/02 0859 0957 Mupirocin 1 APPLIC BID 07/03 0900 AC 07/04 NASAL 07/07 210 0958 Tamsulosin HCl 0.4 MG BEDTIME 07/02 2144 AC PO 08/01 Docusate Sodium 100 MG BID PRN PRN 07/02 2114 A C PO 08/01 2113 Labetalol HCl 10 MG Q6H PRN PRN 07/02 2114 AC IV 08/01 2113 Ondansetron HCl 4 MG Q4H PRN PRN 07/02 2114 AC IV 08/01 2113 24 hour I O ending at 0700: 07/04 0700 07/03 1900 Intake Total 240 Output Total 1100 1800 Balance -860 -1800 Intake, Oral 240 Output, Urine 1100 1800 Vital Signs: Date Time Temp Pulse Resp B/P B/P Pulse O2 O2 F low FiO2 Mean Ox Delivery Rate 07/04 0931 96 30 144/72 94 95 07/04 0900 96 30 147/80 98 93 07/04 0842 88 19 139/76 97 94 07/04 0630 78 26 92 07/04 0600 77 26 91 07/04 0500 82 13 93 07/04 0458 80 16 93 07/04 0430 80 28 94 07/04 0400 76 26 92 07/04 0330 75 24 91 07/04 0300 76 28 94 07/04 0200 76 25 91 07/04 0100 76 30 94 07/04 0000 77 29 94 07/03 2300 72 28 94 07/03 2200 70 26 94 07/03 2100 76 26 113/62 81 92 07/03 1999 36.4 80 29 147/69 99 94 07/03 1900 80 27 131/66 91 92 07/03 1800 78 27 133/68 92 93 07/03 1701 91 32 149/101 119 89 07/03 1600 80 29 122/58 84 92 07/03 1552 78 31 127/60 86 91 07/03 1545 79 23 123/64 85 93 07/03 1530 73 26 127/63 88 95 07/03 1515 74 31 144/69 100 96 07/03 1500 76 27 145/68 97 95 07/03 1445 74 25 134/76 98 96 07/03 1430 73 32 137/70 97 95 07/03 1415 75 31 126/70 93 94 07/03 1400 74 24 124/65 88 95 07/03 1345 74 25 122/60 87 95 07/03 1330 72 32 133/75 99 96 07/03 1320 36.3 73 32 136/75 96 Room air 07/03 1316 73 31 136/75 101 95 07/03 1300 77 29 144/74 102 96 07/03 1247 73 28 143/76 103 97 PATIENT WEIGHT: Weight (lb): 190 Weight (oz): 11.2 Weight (kg): 86.500 Physical Exam General appearance: alert, awake, oriented, no a cute distress Head/Eyes: atraumatic, clear cornea ENT: moist mucosal membranes Neck: full range of motion, no JVD Cardiovascular: CV assessment: regular rate and rhythm, no murm ur Respiratory: decreased breath sounds, no distres s Abdomen: soft, non-tender, normal bowel sounds, no distention, no guarding Genitourinary: urinary catheter, urine Upper extremity: UE assessment: normal temperature, no edema Lower extremity: LE assessment: normal temperature, no edema 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ALTH: alert, oriented X 3, normal speech Psychiatry: normal affect Diagnosis, Assessment Plan Problem List/A P: 1. HTN (hypertension) 2. CLAUDETTE (acute kidney injury) 3. CAD (coronary artery disease) 4. Dyslipidemia 5. BPH (benign prostatic hyperplasia) Free Text DxA P Notes Free Text DxA P Notes: Mr. Arce is a pleasant 81 y/o M w/ PMHx: HTN, HLD presented to [facility] on 06/28/22 for chest pain and sob for several days and worsen on the day of admissi on. He was diagnosed NSTEMI w/ Trop was peaked 7600 's, EKG w/ normal ST and CLAUDETTE w/ Cr 14 on admissi on. He underwent LHC on 07/[address] Layne which showed severe mLM 70% stenosis, pLAD diffuse 80% stenosis, mLAD 60% and focal 70% stenosis; pLCx 80 % stenosis, dLCx 70% stenosis, pOM 60% stenosis; pRCA 40% stenosis, mRCA 60% stenosis a nd diffuse 50-60% dRCA. He transferred to [facility] for CABG. - CAD/NSTEMI. Per CTS. s/p LHC: multivessel disease. Carotid u/s -no stenosis CT chest small bilateral fluid effusion and ate lectasis. On statins, BB, ASA. Echo: LVEF 30-34% Plans for CABG- timing per CTS - Systolic HF with ischemic CMP strict I/Os, daily weights, fluid restriction, low NA diet on IV lasix and bb no charly/arb/aldactone due to CLAUDETTE monitor - CLAUDETTE. Per nephro. likly from obstructive uropathy. s/p waters cath. Renal ultrasound showed severe thickening of th e bladder, cholelitiasis. - HTN. Bp controlled. Cont - HLD. On statins. - Anemia. Hb 9.5 - UTI. Per IM. Discussed plan of care w/pt. Liset Ennis 07/04/22 1833: Attestations Physician Attestation Agree w/findings plan: I have seen and examined the pt, I Agree with th e findings and plan as documented by Jyoti Browning. Patient was discussed in the multidisciplinary team today, patient will benefit from CABG however given the recent CLAUDETTE and that his acute admission may be an temporary dialysis consensus was to do CABG but delay surgery till later of the week Electronically Signed by Jyoti Browning NP on 0 07/04/22 at 1241 Electronically Signed by Liset Ennis MD on at 1834 RPT #:[id number] END OF REPORT 2022-07-04 08:08:00-00:00 [facility] ([facility]) Cardiothoracic Surgery Prog REPORT#:[id number] REPORT STATUS: Signed DATE:07/04/22 TIME: 807 PATIENT: SHERRI ARCE UNIT #: [id number] ROOM[address]BED: [address] : 42 AGE: 81 SEX: M ATTEND: Radha Ward ADM AUTHOR: Rosalind Toribio * ALL edits or amendments must be made on the [email or web address] document * Subjective Chief complaint: Chest Pain Pre CABG eval Review of Systems Constitutional: Denies: chills, fever, malaise. Allergy/Immun: Denies: allergic reaction. Respiratory: Denies: SOB. Cardiovascular: Denies: chest pain, palpitations. GI: Denies: abdominal pain, nausea, vomiting. Heme: Denies: bleeding. All systems rev neg: except as marked Objective General VS/I O Last Documented: Result Date Time Pulse Ox 92 07/04 629 Pulse 78 07/04 0530 Resp 26 07/04 0630 B/P 113/62 07/03 2100 B/P Mean 81 07/03 2100 Temp 97.6 07/03 2000 O2 Delivery Room air 07/03 1320 24 hour I O ending at 0700: 07/04 0700 07/03 1900 Intake Total 240 Output Total 1100 1800 Balance -860 -1800 Intake, Oral 240 Output, Urine 1100 1800 PATIENT WEIGHT: Weight (lb): 190 Weight (oz): 11.2 Weight (kg): 86.500 Physical Exam General appearance: alert, oriented, mental stat us normal, no respiratory distress HEENT: anicteric, mucosal membranes moist Neck: supple/no meningismus Cardiovascular: normal heart sounds, regular rat e rhythm Respiratory: aerating well, symmetric expansion, no distress Abdomen: soft, non-tender, no distention Extremities: moves all 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ALTH: alert, oriented X 3, normal speech, n o motor deficits Psychiatry: normal affect, normal mood Current Medications Medications: Active Meds + DC'd Last 24 Hrs Magnesium Sulfate (MAGNESIUM SULFATE 4GM/SWFI 10 0ML) 100 ML ONCE ONE IV Atorvastatin Calcium (LIPITOR) 20 MG BEDTIME PO Ceftriaxone Sodium (ROCEPHIN 1000MG VIAL) 1,000 MG Q24H IV Sodium Chloride (SODIUM CHLORIDE) 10 ML Heparin Sodium (HEPARIN 5000 UNITS/ML) 5,000 UNI T Q8HR SUBQ Albumin Human (ALBUMINAR-25%) 12.5 GM ASDIR PRN IV Heparin Sodium (Porcine) (HEPARIN SODIUM) 3,000 UNIT ASDIR PRN DIALYSIS Lidocaine HCl (LIDOCAINE HCL/PF) 0.5 ML ASDIR NV N I-DERMAL (CKD) Mannitol (Mannitol 20%) 12.5 GM ASDIR PRN IV Sodium Chloride (SODIUM CHLORIDE 0.9%) 2,000 ML ASDIR PRN IV Sodium Chloride (SODIUM CHLORIDE) 5 ML ASDIR PRN IV Sodium Chloride (SODIUM CHLORIDE) 10 ML ASDIR NV N IV Sodium Chloride (SODIUM CHLORIDE 0.9%) 250 ML DIR PRN IV Aspirin (ASPIRIN) 81 MG DAILY PO Metoprolol Tartrate (LOPRESSOR) 12.5 MG BID PO Mupirocin (BACTROBAN 2% 22 GM OINTMENT) 1 APPLIC BID NASAL Tamsulosin HCl (Flomax 0.4 mg) 0.4 MG BEDTIME PO Docusate Sodium (COLACE) 100 MG BID PRN PRN PO Labetalol HCl (LABETALOL HCL) 10 MG Q6H PRN PRN IV Ondansetron HCl (ZOFRAN) 4 MG Q4H PRN PRN IV Results Findings/Data: Laboratory Tests 07/04 424 Chemistry Sodium (134 - 147 mEq/L) 143 Potassium (3.4 - 5.0 mEq/L) 3.6 Chloride (100 - 108 mEq/L) 112 H Carbon Dioxide (21 - 33 mEq/l) 23 Anion Gap (0 - 20) 12 BUN (7 - 18 mg/dL) 45 H Creatinine (0.6 - 1.3 mg/dL) 5.5 H Glomerular Filtr Rate (70 - 80) 9.9 L Glucose (70 - 110 mg/dL) 94 Calcium (8.0 - 10.5 mg/dL) 7.8 L Phosphorus (2.5 - 4.9 MG/DL) 4.0 Magnesium (1.80 - 2.40 mg/dL) 1.40 L Laboratory Tests 07/04 424 Hematology WBC (4.5 - 11.0 x10 3/uL) 9.7 RBC (4.00 - 5.60 x10 6/uL) 3.11 L Hgb (12.5 - 16.9 g/dL) 9.5 L Hct (37.5 - 50.7 %) 30.1 L MCV (81.0 - 99.0 fL) 96.8 MCH (27.0 - 33.0 pg) 30.5 MCHC (33.0 - 37.0 g/dL) 31.6 L RDW (11.5 - 14.5 %) 15.3 H Plt Count (150 - 400 x10 3/uL) 182 MPV (7.0 - 9.0 fL) 10.5 H Neut % (Auto) (56.0 - 77.0 %) 61.8 Lymph % (Auto) (14.0 - 32.0 %) 12.1 L [place] % (Auto) (4.8 - 9.0 %) 10.8 H Eos % (Auto) (0.3 - 3.7 %) 12.8 H Baso % (Auto) (0.0 - 2.0 %) 0.7 Neut # (Auto) (2.0 - 7.6 x10 3/uL) 5.98 Lymph # (Auto) (1.0 - 3.8 x10 3/uL) 1.17 [place] # (Auto) (0.1 - 0.8 x10 3/uL) 1.04 H Eos # (Auto) (0.0 - 0.2 x10 3/uL) 1.24 H Baso # (Auto) (0.0 - 0.2 x10 3/uL) 0.07 Abs Immat Gran (auto) (0.00 - 0.03 x10 3/uL) 0. 17 H Add Manual Diff NO Immature Gran % (0.0 - 2.0 %) 1.8 Nucleated RBC % (0 - 0 %) 0.0 Nucleated RBCs # (Man) (0.0 - 0.1 x10 3/uL) 0.0 0 Laboratory Tests 07/03 1223 Serology Hepatitis A IgM Ab (NON REACT. INDEX) NON REACT BRANDON Hep Bs Antigen (NonReactive INDEX) NON REACTIVE Hep B Core IgM Ab (NON REACT. INDEX) NON REACTI VE Hepatitis C Antibody (NON REACT. INDEX) NON BRITTNEY CTIVE Radiology data: Recent Impressions: ULTRASOUND - DUP VEIN WOJCIECH 07/03 1207 Report Impression - Status: SIGNED Entered: 07/03/2022 1326 IMPRESSION: 1. The right greater saphenous vein measures 0.2 4 mm in the upper thigh, 0.22 mm in the mid thigh, 0.20 mm in the lower thigh, 0.17 mm in the upper calf, 0.21 mm in the mid calf, a nd 0.17 mm in the distal calf. 2. The left greater saphenous vein measures 0.27 mm in the upper thigh, 0.29 mm in the mid thigh, 0.30 mm in the lower thigh, 0.23 mm in the upper calf, 0.24 mm in the mid calf, a nd 0.19 mm in the distal calf. Impression By: [email or web address] - Mario Canas ULTRASOUND - US RETROPERITONEAL COM 07/03 1208 Report Impression - Status: SIGNED Entered: 07/03/2022 1552 IMPRESSION: 1. Bilateral severe hydronephrosis. 2. Severe thickening of the urinary bladder wall with a Waters catheter in place. 3. 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 4. Cholelithiasis Impression By: [email or web address] Noreen Chawla ULTRASOUND - DUP EXTRACRANIAL WOJCIECH 07/03 1208 Report Impression - Status: SIGNED Entered: 07/03/2022 1256 IMPRESSION: No flow-limiting proximal internal carotid arter ial stenosis. REFERENCES: SRU CRITERIA. The degree of internal carotid art sunita stenosis is based on criteria defined by the Society of Radi ologists in Ultrasound (SRU). Normal is no stenosis. Mild is less than 50% stenosis. Moderate is 50-69% stenosis. Severe is greater than 69% stenosis to near occlusion. Near occlusion is a markedly narrowed lumen. Total occlusion is no detectable patent l umen. Impression By: [email or web address] Yasmin Berry M.D. CAT SCAN - CT CHEST W/O CONTRAST 07/03 1227 Report Impression - Status: SIGNED Entered: 07/03/2022 1313 IMPRESSION: Small bilateral pleural effusions with bibasilar atelectasis. Impression By: Kourtney Boo M.D. Quality: Trauma Gen Surg VTE Prophylaxis - General VTE prophylaxis initiated: yes Diagnosis, Assessment Plan Hospital course to date: This is a 81-year-old gentleman who presented to an outside hospital with complaints of chest pains while walking at his home on Thursday. He denies any previous history of coronary artery disease or o ther NE. He was seen and evaluated at [facility]. He was found to have a urinary tract infection with urinary retention and acute kidne y. He was started on dialysis via a left femoral temporary catheter. He underw ent dialysis on Thursday, Thursday. Renal has been consulted During his work-up at outside hospital he underw ent Left heart catheterization showing sever e Left Main 70%. LAD: Proximal diffuse 80% stenosis and then diffuse 60% in the midsegment and on the distal segment, there is focal 70% stenosis. Diagonal branches w ith luminal irregularities. Left circumflex, codominant circulation with pro ximal 80%, mid 80 to 90% and then in the OM, there is proximal 60%, distal le ft circumflex has a 70% stenosis. RCA large and dominant with proximal 4 0% stenosis, mid 60% stenosis and then diffuse 50% stenosi s all the way distally and the PLV and the PDA with luminal irregularities. CV surgery consulted for evaluation for coronary bypass graft. CAROTIDS - No carotid stenosis CT chest complete IMPRESSION: Small bilateral pleural effusions with bibasila r atelectasis. Echo: 1. Left ventricle: The cavity size is at the upp er limits of normal. Wall thickness is mildly increased. Systolic fu nction is severely reduced. The estimated ejection fraction is 30- 34%. Moderate hypokinesis of the entire myocardium. Doppler p arameters are consistent with abnormal left ventricular relax ation (grade 1 diastolic dysfunction). 2. Pericardium, extracardiac: A small pericardia l effusion is identified along the left ventricular free wall, along the right ventricular free wall, and along the right atrial free wall . Assessment/Plan 1) CAD Mutlivessel Will obtain echo,carotids. 2) CLAUDETTE Started dialysis on Creatine 7.3 Renal consulted. 3) BPH- Urinary retention. Waters in place Workup for CABG underway. Will get functional assessment with PT. PFT pending Carotid dopplers- No disease Echo Pending Dialyiss per Renal. Baseline Cr unknown. 07/04 07/04 Doing well today, alert, up in the chair. Denies chest pain Echocardiogram showed LVEF 30 to 34%, mild MR, t rivial TR CT chest images reviewed Encourage I-S and mobilization Creatinine 5.5 from 7.3, good urine output. Pao l US showed bilateral severe hydronephrosis. Plan for HD today and tomorrow Will tentatively schedule patient for surgery on Thursday. Patient seen and plan reviewed with Dr Schwarz Consultants: cardiology, cardiovascular surgery, nephrology at 1130 at 0838 RPT #:[id number] END OF REPORT 2022-07-03 16:43:00-00:00 [id number] [place] [address] PATIENT NAME: SHERRI ARCE ADMIT DATE: 07/02/22 ACCOUNT NO: [id number] ROOM NO: [id number] AGE: 81 REPORT TYPE: eECHOCARDIOGRAM REPORT SEX: M ADMITTING PHYSICIAN:Los Crawford DO ATTENDING PHYSICIAN:Los Crawford DO *[place] [address] Transthoracic Echocardiogram Patient: Sherri Arce Study Date: 07/03/2022 BP: 159 / 78 Location: [facility] URN: [id number] : 1940 Age: 81 Height: 72 in / 183 cm Gender: M Weight: 190 .3 lb / 86.5 kg BMI/BSA: 25.8 kg/m 2 / 2.11 m 2 *Ordering Physician: * Gianna Hoover *Interpreting Physician: * Liset Ennis MD *Computational Sciences Professor: * Desire Tsang [facility] Indications: PRE CABG. Study data: Transthoracic echocardiogram. Proced ure: Transthoracic echocardiography was performed. Images were obta ined using a Cennox cardiac ultrasound machine. Image quality was fair. The study was technically limited due to poor acoustic window availability . Complete 2D, complete spectral Doppler, and color Doppler. Location: [facility] Patient status: Inpatient. Patient room number: 3312. Study stat us: CHELSEY. Findings Left ventricle: The cavity size is at the upper limits of normal. Wall thickness is mildly increased. Systolic function is severely reduced. The estimated ejection fraction is 30-34%. Regio nal wall motion abnormalities: Moderate hypokinesis of the entir e myocardium. Doppler parameters are consistent with abnormal left jan tricular relaxation (grade 1 diastolic dysfunction). PATIENT NAME: SHERRI ARCE 7 Right ventricle: The cavity size is normal. Syst olic function is normal. Left atrium: The atrium is at the upper limits o f normal in size. Right atrium: The atrium is normal in size. Aorta: Aortic root: The aortic root is normal in size. The aorta is normal. Aortic valve: The valve is structurally normal. The valve is trileaflet. There is no evidence of stenosis. Th ere is no regurgitation. Mitral valve: The valve is structurally normal. There is no evidence of stenosis. There is mild regurgitatio n. Tricuspid valve: The valve is structurally meagan l. There is trivial regurgitation. Pulmonic valve: The valve is structurally normal . There is no regurgitation. Pericardium: A small pericardial effusion is oni ntified along the left ventricular free wall, along the right ventricul ar free wall, and along the right atrial free wall. Pulmonary arteries: The main pulmonary artery is normal-sized. Systemic veins: Inferior vena cava: The vessel is normal in size . The respirophasic diameter changes are in the normal range (= 50%) . Measurements Left ventricle Value Ref AARTI, LAX 5.3 cm 4.2 - 5.8 ESD, LAX 4.4 cm 2.5 - 4.0 ESD/bsa, LAX 2.1 cm/m 2 1.3 - 2.1 FS, LAX 17 % 25 - 43 ESD/bsa major 3.7 cm/m 2 --------- ax, A4C AARTI/bsa minor 3.7 cm/m 2 --------- ax, A4C AARTI major ax, 9.0 cm --------- A2C ESD major ax, 8.4 cm --------- A2C AARTI/bsa major 4.3 cm/m 2 --------- ax, A2C ESD/bsa major 4.0 cm/m 2 --------- ax, A2C PW, ED 1.3 cm 0.6 - 1.0 IVS/PW, ED 0.84 --------- EF 36 % 52 - 72 E', lat nat, 7.0 cm/sec >=10.0 TDI E/e', lat nat, 18 --------- TDI E', med nat, 5.5 cm/sec >=7.0 TDI E/e', med nat, 23 --------- PATIENT NAME: SHERRI ARCE TDI E', avg, TDI 6.2 cm/sec --------- E/e', avg, TDI 20 <=14 LVOT Value Ref Diam, S 2.06 cm --------- Area 3.3 cm 2 --------- Peak julisa, S 1.05 m/sec --------- Mean julisa, S 0.74 m/sec --------- VTI, S 19.7 cm --------- Peak grad, S 4 mm Hg --------- Mean grad, S 2 mm Hg --------- SV 65 ml --------- Qs 4.7 L/min --------- Qs/bsa 2.2 L/(min-m 2) --------- SV/bsa 31 ml/m 2 --------- Ventricular septum Value Ref IVS, ED 1.1 cm 0.6 - 1.0 Right ventricle Value Ref TAPSE, MM 2.3 cm 1.7 - 3.1 Left atrium Value Ref AP dim, ES 3.58 cm 3.00 - 4.00 Vol/bsa, ES, 31 ml/m 2 12 - 37 1-p A4C Vol, ES, 2-p 69 ml --------- Vol/bsa, ES, 33 ml/m 2 16 - 34 2-p Vol/bsa, ES, 36 ml/m 2 16 - 34 A/L Right atrium Value Ref Area, ES 16 cm 2 10 - 18 SI dim, ES, A4C 5.3 cm 3.4 - 5.3 SI dim/bsa, ES, 2.5 cm/m 2 1.8 - 3.0 A4C Vol, ES, A/L 42 ml --------- Vol, ES, 1-p 41 ml --------- A4C Vol/bsa, ES, 20 ml/m 2 11 - 39 1-p A4C Aortic valve Value Ref Peak v, S 1.6 m/sec --------- Mean v, S 1.15 m/sec --------- VTI, S 26.5 cm --------- Mean grad, S 5.7 mm Hg --------- Peak grad, S 10.2 mm Hg --------- LVOT/AV, VTI 0.74 --------- ratio CHERELLE, VTI 2.47 cm 2 --------- PATIENT NAME: SHERRI ARCE LVOT/AV, Vpeak 0.66 --------- ratio CHERELLE, Vmax 2.20 cm 2 --------- Mitral valve Value Ref Peak E 0.06 m/sec --------- Peak A 1.42 m/sec --------- Decel time 100 ms --------- Peak E/A ratio 0.88 --------- Pulmonic valve Value Ref NV v, ED 0.72 m/sec --------- Aortic root Value Ref Root diam 3.5 cm <4.2 Conclusions Summary: 1. Left ventricle: The cavity size is at the upp er limits of normal. Wall thickness is mildly increased. Systolic fu nction is severely reduced. The estimated ejection fraction is 30- 34%. Moderate hypokinesis of the entire myocardium. Doppler p arameters are consistent with abnormal left ventricular relax ation (grade 1 diastolic dysfunction). 2. Pericardium, extracardiac: A small pericardia l effusion is identified along the left ventricular free wall, along the right ventricular free wall, and along the right atrial free wall . Prepared and electronically signed by Liset Ennis MD 07/03/2022 16:43 Electronically Signed by Liset Ennis MD on 0 07/03/22 at 1643 PATIENT NAME: SHERRI ARCE 2022-07-03 15:53:00-00:00 [facility]L [facility] ([facility]) Hospitalist Progress Note REPORT#:[id number] REPORT STATUS: Signed DATE:07/03/22 TIME: 1553 PATIENT: SHERRI ARCE UNIT #: [id number] ROOM/BED: [place] [address] : 42 AGE: 81 SEX: M ATTEND: Maryam Crawford DO ADM AUTHOR: Los Crawford DO * ALL edits or amendments must be made on the [email or web address] document * Subjective Chief complaint: Patient seen and examined during dialysis No new complaints HPI: 81 y/o man with PMHx of HTN, Dyslipidemia [facility] with chest pain and found to have a NSTEMI and also acute renal failure. Underwent cardiac c ath yesterday and found to have severe CAD including left main disease. Transfer here f or CABG evaluation. He also underwent HD Thursday and Thursday of this week. HD catheter was place at [facility]. Currently not having any chest pain. Had chest pain with SOB when he presentted to the previous hospital. Objective General VS/I O: Vital Signs: Date Time Temp Pulse Resp B/P B/P Pulse O2 O2 F low FiO2 Mean Ox Delivery Rate 07/03 1320 97.3 73 32 136/75 96 Room air 07/03 0702 79 07/03 0701 79 26 159/78 106 96 07/03 0600 85 23 112/69 86 94 07/03 0500 86 28 140/68 95 93 07/03 0400 85 25 131/60 87 93 07/03 0352 97.5 07/03 0300 87 30 133/76 91 93 07/03 0200 83 29 140/70 99 94 07/03 0100 83 23 137/62 89 91 07/03 0000 85 25 147/70 100 91 07/02 2300 81 22 138/76 101 92 07/02 2200 86 25 140/79 101 95 07/02 2148 83 26 95 07/02 2146 87 31 94 07/02 2000 98.5 Room air 24 hour I O ending at 0700: 07/03 0700 07/02 1900 Intake Total Output Total 1300 Balance -1300 Output, Urine 1300 Patient 86.5 kg Weight Weight Bed scale Measurement Method PATIENT WEIGHT: Weight (lb): 190 Weight (oz): 11.2 Weight (kg): 86.500 Physical Exam General appearance: alert, awake, oriented Head/Eyes: atraumatic, EOMI, normal conjunctiva/ sclera, normocephalic, PERRLA ENT: moist mucosal membranes Neck: full range of motion, no bruit/NL carotids , no JVD Cardiovascular: normal heart sounds, regular rat e rhythm Respiratory: aerating well, clear to auscultatio n, symmetric expansion, no distress Abdomen: non-tender, normal bowel sounds , soft, no distention, no guarding, no rebound Extremities: moves all, no cyanosis, no edema Musculoskeletal: normal inspection 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ALTH: alert, oriented X 3, normal speech, n o motor deficits, no sensory deficits Skin: intact, normal color, no rash Diagnosis, Assessment Plan Consultants: cardiology, cardiovascular surgery, nephrology Free Text DxA P Notes Free text DxA P notes: 1. CAD (coronary artery disease) patient presented with NSTEMI and found to hve severe CAD. Cardiac cath shows: Left Main - Distal 70% LAD - Proximal 80% with another 60% and 70% les sions Cir - Proximal 80%,mid 80-90%, Distal 70% and O M 60% RCA - large dominant with proximal 40%, Mid 60% . Patient on ASA, BB and Statin Cardiology and CV surgeon consulted Obtain echocardiogram Carotid Dopplers negative Physical therapy evaluate and treat PFTs pending 2. HTN (hypertension) patient on metoprolol 12.5 mg BID, will adjust as needed 3. Dyslipidemia on Lipitor 20mg po daliy. Will check lipid prof ile in am. 4. CLAUDETTE (acute kidney injury) No prior Hx of renal disease. hx of BPH and casimiro ated with Fosamax w/o improvement nd continue to h ave difficulty urinating. On admission was found to be on acute renal filaure and had received HD tw ice prior to arrival here ( thursday and thursday). Creatinine this am was 7.4, BUN 68 * Probably due to obstructive uropathy * waters already in place * Nephrology consuled for HD 5. BPH (benign prostatic hyperplasia) Started on Flomax at the previous hospital, thais l continue with it. 6. Goiter Hx of Goiter and surgical resection. TSH 3.33, within normal limits. Patient is not on Thyroid medication. 7. anemia of chronic kidney disease Hemoglobin 9.5, monitor 8. Hypokalemia potassium 3.3, replace and rechec k in a.m. 9. UTI continue Rocephin for empiric treatment pending results of urine culture DVT prophylaxis: Heparin 5000 units every 8 hour s Diet: Cardiac CODE STATUS: Full code Disposition: CABG work-up by cardiothoracic surg sunita Quality: Gen Med Crit Care VTE Prophylaxis VTE prophylaxis initiated: yes Current Medications Current medication review: I attest that the foregoing medication list in t medical record is true, accurate, and complete to the best of my knowled ge. Advanced Care Plan 65 or Older Discussed with: patient Discussion included: living will (none), power of employment law attorney (none), code status ( full code) at 1600 RPT #:[id number] END OF REPORT 2022-07-03 15:23:00-00:00 [facility] ([facility]) Cardiology Consultation REPORT#:[id number] REPORT STATUS: Signed DATE:07/03/22 TIME: 1522 PATIENT: SHERRI ARCE UNIT #: [id number] ROOM/BED: [place] [address] : 42 AGE: 81 SEX: M ATTEND: Maryam Crawford DO ADM AUTHOR: Carolyn Penny LAUNDRY ASSISTANT * ALL edits or amendments must be made on the [email or web address] document * Carolyn Penny 07/03/22 1523: History of Present Illness HPI Requesting Clinician: Dr. Mcarthur Reason for consult: CAD NSTEMI Chief complaint: "blockage" PCP: PCP: Los Crawford DO HPI: Mr. Arce is a pleasant 81 y/o M w/ PMHx: HTN, HLD , BPH presented to [facility] on 06/28/22 for c hest pain and sob for several days and worsen on the day of admission. He was diagnosed NSTEMI w/ Trop was peaked 7600's, EKG w/ normal ST and CLAUDETTE w/ Cr 14 on admission. He underwent LHC on 07/[address] Layne which showed severe mLM 7 0% stenosis, pLAD diffuse 80% stenosis, mLAD 60% and focal 70% stenosis; pLCx 80% stenosis, dLCx 70% stenosis , pOM 60% stenosis; pRCA 40% stenosis, mRCA 60% stenosis and diffuse 50-60% dRCA. He transferred to [facility] for CABG. Card iology is consulted for CAD. Patient denied chest discomf ort, no sob, no palpitation. Telemetry shows nsr w/ BBB note. His left femoral temporary dialysis ca theter was inserted and underwent HD in [place]. Furthermor e, on admission he found severe anemia w/ Hb 6.8 w/ no active bleeding. Currently he is on RA, and on HD. Workup today: WBC 10.3, hemoglobin 9.5, hematocr it 29.4, platelet 195. Sodium 144, potassium 3.3, BUN 60, creatinine 7.3. Hemo globin A1c 4.8. Total cholesterol 119, triglyceride 119, LDL 90, HDL l ess than 20. TSH 3.33. UA is positive for UTI-he is on Rocephin. Currently, pt is on RA, on HD. History - Adult longitudinal Past medical history: Reports: Hypertension, Dyslipidemia. Additional surgical history: Denies Family history: Reports: Heart disease (parents and sibbling.). 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) Drug use: Denies recreational drugs Smoking status for patients 13 years old or older: Former Smoker (quit 20 years ago) Home medications: Home Medications: ASPIRIN 81 MG PO DAILY TAMSULOSIN ER (FLOMAX) 0.4 MG PO BEDTIME ATORVASTATIN (LIPITOR) 20 MG PO DAILY METOPROLOL TARTRATE (LOPRESSOR) 12.5 MG PO BID cefTRIAXone (ROCEPHIN) 1 GM IV Q24H VANCOMYCIN/D5W (VANCOCIN/D5W) 1 GM IV DIALYSIS-D OSE DURING ACETAMINOPHEN (TYLENOL) 650 MG PO Q6H PRN PRN PA IN SCALE 1-3/TEMP ABOVE 100F ONDANSETRON 4 MG IV Q6H PRN PRN NAUSEA AND VOMIT ING Allergies: Coded Allergies: No Known Allergies (07/02/22) Review of Systems Constitutional: Denies: chills, fatigue, fever, generalized weak ness. Skin: swelling. Denies: diaphoresis. Allergy/Immun: Denies: itching, sneezing. Eyes: Denies: redness, discharge, visual loss/blurred. ENT: Denies: nasal congestion, voice change. Respiratory: Reports: QUINN (dyspnea on exertion), SOB. Denies: parox nocturnal dyspnea, pneumonia. Cardiovascular: Reports: chest pain, dyspnea on exertion, edema. Denies: orthopnea, palpitations, parox noctural dyspnea. GI: Denies: diarrhea, melena, vomiting. : Denies: hematuria. Musculoskeletal: extremity swelling. Denies: extremity pain. Heme: Denies: bleeding, bruising. Endocrine: Denies: cold intolerance, heat intolerance. Neuro: Denies: change in LOC, confusion, dizziness, lig htheaded. Psych: Denies: change in mental status. Objective General VS/I O: Vital Signs: Date Time Temp Pulse Resp B/P B/P Pulse O2 O2 F low FiO2 Mean Ox Delivery Rate 07/03 1320 97.3 73 32 136/75 96 Room air 07/03 0702 79 07/03 0701 79 26 159/78 106 96 07/03 0600 85 23 112/69 86 94 07/03 0500 86 28 140/68 95 93 07/03 0400 85 25 131/60 87 93 07/03 0352 97.5 07/03 0300 87 30 133/76 91 93 07/03 0200 83 29 140/70 99 94 07/03 0100 83 23 137/62 89 91 07/03 0000 85 25 147/70 100 91 07/02 2300 81 22 138/76 101 92 07/02 2200 86 25 140/79 101 95 07/02 2148 83 26 95 07/02 2146 87 31 94 07/02 2000 98.5 Room air 24 hour I O ending at 0700: 07/02 1900 07/03 0700 Intake Total Output Total 1300 Balance -1300 Output, Urine 1300 Patient 86.5 kg Weight Weight Bed scale Measurement Method PATIENT WEIGHT: Weight (lb): 190 Weight (oz): 11.2 Weight (kg): 86.500 Medications: Active Meds + DC'd Last 24 Hrs Atorvastatin Calcium (LIPITOR) 20 MG BEDTIME PO Ceftriaxone Sodium (ROCEPHIN 1000MG VIAL) 1,000 MG Q24H IV Sodium Chloride (SODIUM CHLORIDE) 10 ML Heparin Sodium (HEPARIN 5000 UNITS/ML) 5,000 UNI T Q8HR SUBQ Albumin Human (ALBUMINAR-25%) 12.5 GM ASDIR PRN IV Heparin Sodium (Porcine) (HEPARIN SODIUM) 3,000 UNIT ASDIR PRN DIALYSIS Lidocaine HCl (LIDOCAINE HCL/PF) 0.5 ML ASDIR NV N I-DERMAL (CKD) Mannitol (Mannitol 20%) 12.5 GM ASDIR PRN IV Sodium Chloride (SODIUM CHLORIDE 0.9%) 2,000 ML ASDIR PRN IV Sodium Chloride (SODIUM CHLORIDE) 5 ML ASDIR PRN IV Sodium Chloride (SODIUM CHLORIDE) 10 ML ASDIR NV N IV Sodium Chloride (SODIUM CHLORIDE 0.9%) 250 ML DIR PRN IV Aspirin (ASPIRIN) 81 MG DAILY PO Heparin Sodium (HEPARIN 5000 UNITS/ML) 5,000 UNI T Q12HR SUBQ (DC) Metoprolol Tartrate (LOPRESSOR) 12.5 MG BID PO Mupirocin (BACTROBAN 2% 22 GM OINTMENT) 1 APPLIC BID NASAL Tamsulosin HCl (Flomax 0.4 mg) 0.4 MG BEDTIME P O Docusate Sodium (COLACE) 100 MG BID PRN PRN PO Labetalol HCl (LABETALOL HCL) 10 MG Q6H PRN PRN IV Ondansetron HCl (ZOFRAN) 4 MG Q4H PRN PRN IV Physical Exam General appearance: alert, awake, oriented, no a cute distress, pleasant, conversational, mental status normal, no respira tory distress Head/Eyes: atraumatic, clear cornea ENT: moist mucosal membranes Neck: full range of motion, no JVD Cardiovascular: CV assessment: regular rate and rhythm, no murm ur Respiratory: decreased breath sounds, no distres s Abdomen: soft, non-tender, normal bowel sounds, no distention, no guarding Genitourinary: urinary catheter, urine Upper extremity: UE assessment: normal temperature, no edema Lower extremity: LE assessment: normal temperature, no edema 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ALTH: alert, oriented X 3, normal speech Psychiatry: normal affect Results Findings/Data: Laboratory Tests 07/03 07/03 07/03 0623 0623 1022 Chemistry Sodium (134 - 147 mEq/L) 144 Potassium (3.4 - 5.0 mEq/L) 3.3 L Chloride (100 - 108 mEq/L) 109 H Carbon Dioxide (21 - 33 mEq/l) 22 Anion Gap (0 - 20) 16 BUN (7 - 18 mg/dL) 68 H Creatinine (0.6 - 1.3 mg/dL) 7.3 H Glomerular Filtr Rate (70 - 80) 7.1 L Glucose (70 - 110 mg/dL) 103 Hemoglobin A1c (4.8 - 6.0 %A1C) 5.2 4.8 Calcium (8.0 - 10.5 mg/dL) 8.0 Triglycerides (40 - 150 mg/dL) 119 Cholesterol (<200 mg/dL) 119 LDL Cholesterol Measurd (0 - 100 mg/dL) 90.1 HDL Cholesterol (32 - 72 mg/dL) < 20.0 L Cholesterol/HDL Ratio (3.43 - 4.97 RATIO) 5.00 H TSH (0.42 - 5.47) 3.33 Laboratory Tests 07/03 0623 Hematology WBC (4.5 - 11.0 x10 3/uL) 10.3 RBC (4.00 - 5.60 x10 6/uL) 3.09 L Hgb (12.5 - 16.9 g/dL) 9.5 L Hct (37.5 - 50.7 %) 29.4 L MCV (81.0 - 99.0 fL) 95.1 MCH (27.0 - 33.0 pg) 30.7 MCHC (33.0 - 37.0 g/dL) 32.3 L RDW (11.5 - 14.5 %) 15.3 H Plt Count (150 - 400 x10 3/uL) 195 MPV (7.0 - 9.0 fL) 10.7 H Neut % (Auto) (56.0 - 77.0 %) 67.3 Lymph % (Auto) (14.0 - 32.0 %) 9.4 L [place] % (Auto) (4.8 - 9.0 %) 10.0 H Eos % (Auto) (0.3 - 3.7 %) 11.7 H Baso % (Auto) (0.0 - 2.0 %) 0.6 Neut # (Auto) (2.0 - 7.6 x10 3/uL) 6.93 Lymph # (Auto) (1.0 - 3.8 x10 3/uL) 0.97 L [place] # (Auto) (0.1 - 0.8 x10 3/uL) 1.03 H Eos # (Auto) (0.0 - 0.2 x10 3/uL) 1.21 H Baso # (Auto) (0.0 - 0.2 x10 3/uL) 0.06 Abs Immat Gran (auto) (0.00 - 0.03 x10 3/uL) 0. 10 H Add Manual Diff NO Immature Gran % (0.0 - 2.0 %) 1.0 Nucleated RBC % (0 - 0 %) 0.0 Nucleated RBCs # (Man) (0.0 - 0.1 x10 3/uL) 0.0 0 Laboratory Tests 07/03 1223 Serology Hepatitis A IgM Ab (NON REACT. INDEX) NON REACT BRANDON Hep Bs Antigen (NonReactive INDEX) NON REACTIVE Hep B Core IgM Ab (NON REACT. INDEX) NON REACTI VE Hepatitis C Antibody (NON REACT. INDEX) NON BRITTNEY CTIVE Laboratory Tests 07/03 07/03 1047 1047 Urines Urine Color (YEL/STRAW) YELLOW Urine Appearance (CLEAR) CLEAR Urine pH (5.0 - 7.0) 7.0 Ur Specific [place] (1.005 - 1.030) 1.009 Urine Protein (NEGATIVE) 2+ H Urine Glucose (UA) (NEGATIVE) 1+ H Urine Ketones (NEGATIVE) NEGATIVE Urine Blood (NEGATIVE) 2+ H Urine Nitrite (NEGATIVE) NEGATIVE Urine Bilirubin (NEGATIVE) NEGATIVE Urine Urobilinogen (0.2 - 1.0 mg/dL) 0.2 Ur Leukocyte Esterase (NEGATIVE) 3+ H Urine RBC (0 - 3 RBC/HPF) 21-50 Urine WBC (0 - 3 WBC/HPF) 21-50 H Ur Squamous Epith Cells (NONE SEEN /HPF) NONE S EEN Urine Bacteria (NONE SEEN /HPF) TRACE Urine Mucus (NONE SEEN /LPF) TRACE Ur Random Creatinine (mg/dL) 36.2 U Random Total Protein (mg/dL) 129 Ur Random Sodium (MEQ/L) 67 Radiology Data: Recent Impressions: RADIOLOGY - XR CHEST 1 V 07/022 Report Impression - Status: SIGNED Entered: 07/03/2022 0308 IMPRESSION: 1. Nonspecific bibasilar opacities may represent atelectasis, edema, and/or pneumonia. 2. Tiny bilateral pleural effusions. Impression By: [email or web address] - Jermaine Pope M.D . ULTRASOUND - DUP VEIN WOJCIECH 07/03 1207 Report Impression - Status: SIGNED Entered: 07/03/2022 1326 IMPRESSION: 1. The right greater saphenous vein measures 0.2 4 mm in the upper thigh, 0.22 mm in the mid thigh, 0.20 mm in the lower thigh, 0.17 mm in the upper calf, 0.21 mm in the mid calf, a nd 0.17 mm in the distal calf. 2. The left greater saphenous vein measures 0.27 mm in the upper thigh, 0.29 mm in the mid thigh, 0.30 mm in the lower thigh, 0.23 mm in the upper calf, 0.24 mm in the mid calf, a nd 0.19 mm in the distal calf. Impression By: [email or web address] - Mario Canas. ULTRASOUND - US RETROPERITONEAL COM 07/03 1207 Report Impression - Status: SIGNED Entered: 07/03/2022 1552 IMPRESSION: 1. Bilateral severe hydronephrosis. 2. Severe thickening of the urinary bladder wall with a Waters catheter in place. 3. 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 4. Cholelithiasis Impression By: [email or web address] - Cherelle Mata M.D . ULTRASOUND - DUP EXTRACRANIAL WOJCIECH 07/03 1208 Report Impression - Status: SIGNED Entered: 07/03/2022 1256 IMPRESSION: No flow-limiting proximal internal carotid arter ial stenosis. REFERENCES: SRU CRITERIA. The degree of internal carotid art sunita stenosis is based on criteria defined by the Society of Radi ologists in Ultrasound (SRU). Normal is no stenosis. Mild is less than 50% stenosis. Moderate is 50-69% stenosis. Severe is greater than 69% stenosis to near occlusion. Near occlusion is a markedly narrowed lumen. Total occlusion is no detectable patent l umen. Impression By: [email or web address] - Brett Berry M.D. CAT SCAN - CT CHEST W/O CONTRAST 07/03 1227 Report Impression - Status: SIGNED Entered: 07/03/2022 1313 IMPRESSION: Small bilateral pleural effusions with bibasilar atelectasis. Impression By: [email or web address] - Ranjan Boo M.D. Results: labs reviewed, vital signs reviewed, vi marylu signs stable, rhythm personally rev'd, current med profile rev'd Telemetry Interpretation: nsr Diagnosis, Assessment Plan Problem List/A P: 1. HTN (hypertension) 2. CLAUDETTE (acute kidney injury) 3. CAD (coronary artery disease) 4. Dyslipidemia 5. BPH (benign prostatic hyperplasia) Consultants: cardiology, cardiovascular surgery, nephrology Plan discussed with: patient, nurse Free Text DxA P Notes Free Text DxA P Notes: Mr. Arce is a pleasant 81 y/o M w/ PMHx: HTN, HLD presented to [facility] on 06/28/22 for chest pain and sob for several days and worsen on the day of admissi on. He was diagnosed NSTEMI w/ Trop was peaked 7600 's, EKG w/ normal ST and CLAUDETTE w/ Cr 14 on admissi on. He underwent LHC on 07/[address] Layne which showed severe mLM 70% stenosis, pLAD diffuse 80% stenosis, mLAD 60% and focal 70% stenosis; pLCx 80 % stenosis, dLCx 70% stenosis, pOM 60% stenosis; pRCA 40% stenosis, mRCA 60% stenosis a nd diffuse 50-60% dRCA. He transferred to [facility] for CABG. Cardiology is consulted for CAD. Patient denied chest discomfort, no sob, no palpitation. Telemetry shows nsr w/ BBB note. His left femoral temporary dialysis cathet er was inserted and underwent HD in [place]. Furthermore, on admi ssion he found severe anemia w/ Hb 6.8 w/ no active bleeding. Currently he is on RA, an d on HD. Workup today: WBC 10.3, hemoglobin 9.5, hematocr it 29.4, platelet 195. Sodium 144, potassium 3.3, BUN 60, creatinine 7.3. Hemo globin A1c 4.8. Total cholesterol 119, triglyceride 119, LDL 90, HDL l ess than 20. TSH 3.33. UA is positive for UTI-he is on Rocephin. Currently, pt is on RA, on HD. - CAD/NSTEMI. Per CTS. s/p LHC: multivessel disease. CABG workup - to evaluate CABG. Carotid u/s -no stenosis CT chest small bilateral fluid effusion and ate lectasis. On statins, BB, ASA. Echo result pending - CLAUDETTE. Per nephro. likly from obstructive uropathy. s/p waters cath. Renal ultrasound showed severe thickening of th e bladder, cholelitiasis. - HTN. Bp controlled. Cont - HLD. On statins. - Anemia. Hb 9.5 - UTI. Per IM. Discussed plan of care w/pt. Thank you for the kind consult. Liset Ennis 07/04/22 1834: Attestations Physician Attestation Agree w/findings plan: I have seen and examined the pt, I Agree with th e findings and plan as documented by Carolyn Penny. Electronically Signed by Carolyn Penny NP on at 1618 Electronically Signed by Liset Ennis MD on at 1834 RPT #:[id number] END OF REPORT 2022-07-03 11:09:00-00:00 [facility] Cardiothoracic Surgery Consult REPORT#:[id number] REPORT STATUS: Signed DATE:07/03/22 TIME: 110 PATIENT: SHERRI ARCE UNIT #: [id number] ROOM/BED: [place] [address] : 42 AGE: 81 SEX: M ATTEND: Srinath Kaur MD ADM AUTHOR: Gianna oHover * ALL edits or amendments must be made on the [email or web address] document * Gianna Hoover 07/03/22 1109: History of Present Illness HPI Chief complaint: Chest Pain HPI: This is a 81-year-old gentleman who presented to an outside hospital with complaints of chest pains while walking at his home on Thursday. He denies any previous history of coronary artery disease or o ther NE. He was seen and evaluated at [facility]. He was found to have a urinary tract infection with urinary retention and acute kidne y. He was started on dialysis via a left femoral temporary catheter. He underw ent dialysis on Thursday, Thursday. Renal has been consulted During his work-up at outside hospital he underw ent Left heart catheterization showing sever e Left Main 70%. LAD: Proximal diffuse 80% stenosis and then diffuse 60% in the midsegment and on the distal segment, there is focal 70% stenosis. Diagonal branches w ith luminal irregularities. Left circumflex, codominant circulation with pro ximal 80%, mid 80 to 90% and then in the OM, there is proximal 60%, distal le ft circumflex has a 70% stenosis. RCA large and dominant with proximal 4 0% stenosis, mid 60% stenosis and then diffuse 50% stenosi s all the way distally and the PLV and the PDA with luminal irregularities. CV surgery consulted for evaluation for coronary bypass graft. History Past Medical History: Reports: Hypertension. 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 Skin: Denies: laceration, rash, swelling. Allergy/Immun: Denies: itching, rhinorrhea. ENT: Denies: ear drainage, ear ringing. Respiratory: Denies: QUINN (dyspnea on exertion), SOB, wheezing . Cardiovascular: Denies: chest pain, QUINN (dyspnea on exertion). GI: Denies: constipation, diarrhea. : Reports: dysuria. Denies: hematuria. Musculoskeletal: Denies: arthritis. Heme: Denies: bleeding, bruising. Neuro: Denies: confusion, dizziness, focal weakness. Psych: Denies: agitation, anxiety. All systems rev neg: except as marked Objective Physical Exam VS/I O: Last Documented: Result Date Time Pulse 79 07/03 0702 Pulse Ox 96 07/03 0701 B/P 159/78 07/03 0701 B/P Mean 106 07/03 0701 Resp 26 07/03 07 Temp 97.5 07/03 0352 O2 Delivery Room air 07/02 1999 24 hour I O ending at 0700: 07/03 0700 07/02 1900 Intake Total Output Total 1300 Balance -1300 Output, Urine 1300 Patient 86.5 kg Weight Weight Bed scale Measurement Method PATIENT WEIGHT: Weight (lb): 190 Weight (oz): 11.2 Weight (kg): 86.500 General appearance: alert, awake, oriented HEENT: mucosal membranes moist, pupils reactive to light Neck: full range of motion, non-tender Cardiovascular: BP/pulses equal bilat., regular rate rhythm Respiratory: aerating well, clear to auscultatio n Abdomen: soft, non-tender Genitourinary: urinary catheter, no flank pain Extremities: dry Musculoskeletal: full range of motion 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: alert, oriented X 3 Skin: dry, intact Results Findings/Data: Laboratory Tests 07/03 07/03 07/03 1022 0623 0623 Chemistry Sodium (134 - 147 mEq/L) 144 Potassium (3.4 - 5.0 mEq/L) 3.3 L Chloride (100 - 108 mEq/L) 109 H Carbon Dioxide (21 - 33 mEq/l) 22 Anion Gap (0 - 20) 16 BUN (7 - 18 mg/dL) 68 H Creatinine (0.6 - 1.3 mg/dL) 7.3 H Glomerular Filtr Rate (70 - 80) 7.1 L Glucose (70 - 110 mg/dL) 103 Hemoglobin A1c (4.8 - 6.0 %A1C) 4.8 5.2 Calcium (8.0 - 10.5 mg/dL) 8.0 Triglycerides (40 - 150 mg/dL) 119 Cholesterol (<200 mg/dL) 119 LDL Cholesterol Measurd (0 - 100 mg/dL) 90.1 HDL Cholesterol (32 - 72 mg/dL) < 20.0 L Cholesterol/HDL Ratio (3.43 - 4.97 RATIO) 5.00 H TSH (0.42 - 5.47) 3.33 Laboratory Tests 07/03 0623 Hematology WBC (4.5 - 11.0 x10 3/uL) 10.3 RBC (4.00 - 5.60 x10 6/uL) 3.09 L Hgb (12.5 - 16.9 g/dL) 9.5 L Hct (37.5 - 50.7 %) 29.4 L MCV (81.0 - 99.0 fL) 95.1 MCH (27.0 - 33.0 pg) 30.7 MCHC (33.0 - 37.0 g/dL) 32.3 L RDW (11.5 - 14.5 %) 15.3 H Plt Count (150 - 400 x10 3/uL) 195 MPV (7.0 - 9.0 fL) 10.7 H Neut % (Auto) (56.0 - 77.0 %) 67.3 Lymph % (Auto) (14.0 - 32.0 %) 9.4 L [place] % (Auto) (4.8 - 9.0 %) 10.0 H Eos % (Auto) (0.3 - 3.7 %) 11.7 H Baso % (Auto) (0.0 - 2.0 %) 0.6 Neut # (Auto) (2.0 - 7.6 x10 3/uL) 6.93 Lymph # (Auto) (1.0 - 3.8 x10 3/uL) 0.97 L [place] # (Auto) (0.1 - 0.8 x10 3/uL) 1.03 H Eos # (Auto) (0.0 - 0.2 x10 3/uL) 1.21 H Baso # (Auto) (0.0 - 0.2 x10 3/uL) 0.06 Abs Immat Gran (auto) (0.00 - 0.03 x10 3/uL) 0 .10 H Add Manual Diff NO Immature Gran % (0.0 - 2.0 %) 1.0 Nucleated RBC % (0 - 0 %) 0.0 Nucleated RBCs # (Man) (0.0 - 0.1 x10 3/uL) 0.0 0 Laboratory Tests 07/03 07/03 1047 1047 Urines Urine Color (YEL/STRAW) YELLOW Urine Appearance (CLEAR) CLEAR Urine pH (5.0 - 7.0) 7.0 Ur Specific [place] (1.005 - 1.030) 1.009 Urine Protein (NEGATIVE) 2+ H Urine Glucose (UA) (NEGATIVE) 1+ H Urine Ketones (NEGATIVE) NEGATIVE Urine Blood (NEGATIVE) 2+ H Urine Nitrite (NEGATIVE) NEGATIVE Urine Bilirubin (NEGATIVE) NEGATIVE Urine Urobilinogen (0.2 - 1.0 mg/dL) 0.2 Ur Leukocyte Esterase (NEGATIVE) 3+ H Urine RBC (0 - 3 RBC/HPF) 21-50 Urine WBC (0 - 3 WBC/HPF) 21-50 H Ur Squamous Epith Cells (NONE SEEN /HPF) NONE SEEN Urine Bacteria (NONE SEEN /HPF) TRACE Urine Mucus (NONE SEEN /LPF) TRACE Ur Random Creatinine (mg/dL) 36.2 U Random Total Protein (mg/dL) 129 Ur Random Sodium (MEQ/L) 67 Diagnosis, Assessment Plan Free Text A P: This is a 81-year-old gentleman who presented to an outside hospital with complaints of chest pains while walking at his home on Thursday. He denies any previous history of coronary artery disease or o ther NE. He was seen and evaluated at [facility]. He was found to have a urinary tract infection with urinary retention and acute kidne y. He was started on dialysis via a left femoral temporary catheter. He underw ent dialysis on Thursday, Thursday. Renal has been consulted During his work-up at outside hospital he underw ent Left heart catheterization showing sever e Left Main 70%. LAD: Proximal diffuse 80% stenosis and then diffuse 60% in the midsegment and on the distal segment, there is focal 70% stenosis. Diagonal branches w ith luminal irregularities. Left circumflex, codominant circulation with pro ximal 80%, mid 80 to 90% and then in the OM, there is proximal 60%, distal le ft circumflex has a 70% stenosis. RCA large and dominant with proximal 4 0% stenosis, mid 60% stenosis and then diffuse 50% stenosi s all the way distally and the PLV and the PDA with luminal irregularities. CV surgery consulted for evaluation for coronary bypass graft. CAROTIDS - No carotid stenosis CT chest complete IMPRESSION: Small bilateral pleural effusions with bibasila r atelectasis. Assessment/Plan 1) CAD Mutlivessel Will obtain echo,carotids. 2) CLAUDETTE Started dialysis on THU, Creatine 7.3 Renal consulted. 3) BPH- Urinary retention. Waters in place Workup for CABG underway. Will get functional assessment with PT. PFT pending Carotid dopplers- No disease Echo Pending Dialyiss per Renal. Baseline Cr unknown. Consultants: cardiology, cardiovascular surgery, nephrology Quality: Trauma Gen Surg Advanced Care Plan 65 or Older Discussed with: patient Discussion included: living will (none), power of employment law attorney (none), code status ( full code) Current Medications Current medication review: I attest that the foregoing medication list in t he medical record is true, accurate, and complete to the best of my knowled ge. VTE Prophylaxis - General VTE prophylaxis initiated: yes Lina Schwarz 08/02/22 0905: Attestations Physician Attestation Agree w/findings plan: I have seen and examined Mr Arce. I agree with e findings and plan as documented by ELHAM Stewart. Briefy, 81 YO with severe CAD. Patient will bene fit from surgical revascularization. I have ex plained to him the procedure, risk involved, benefit , alternatives, STS risk score and complications . Electronically Signed by Gianna Hoover on 0 07/03/22 at 1355 at 0953 RPT #:[id number] END OF REPORT 2022-07-03 08:42:00-00:00 [facility] REPORT#:[id number] REPORT STATUS: Signed DATE:07/03/22 TIME: 08 PATIENT: SHERRI ARCE UNIT #: [id number] ROOM/BED: [place] [address] : 42 AGE: 81 SEX: M ATTEND: Maryam Crawford DO ADM AUTHOR: Evelina Plaza MD * ALL edits or amendments must be made on the el [employer]/computer document * History of Present Illness Requesting clinician: Dr. Mcarthur Reason for consult: CLAUDETTE Chief complaint: Chest pain or shortness of breath PCP: PCP: Los Crawford DO HPI: This is a 81-year-old male with past medical his tory of hypertension and hyperlipidemia who was initially admitte d to [facility] on 06/30 for shortness of breath and ches t pain secondary to non-STEMI. He was found to have acute renal failure secondary to BPH Per notes. Waters catheter was placed with no urine output, so patient was started on hemod ialysis on the and . The patient underwent left heart catheter on 06/09 that showed multivessel disease including left main coronary artery. The patient was transferred to [facility] for CABG evaluation. The patient seen and CVICU and he states no ches t pain or shortness of breath currently. In terms to his renal history, he denied any his tory of renal disease or nephrolithiasis. However, he states dysuria, uri nary frequency and urine retention. He has history of tobacco abuse but n o NSAIDs. 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 Objective General VS/I O: Vital Signs: Date Time Temp Pulse Resp B/P B/P Pulse O2 O2 Flow FiO2 Mean Ox Delivery Rate 07/03 0702 79 07/03 0701 79 26 159/78 106 96 07/03 0600 85 23 112/69 86 94 07/03 0500 86 28 140/68 95 93 07/03 0400 85 25 131/60 87 93 07/03 0352 97.5 07/03 0300 87 30 133/76 91 93 07/03 0200 83 29 140/70 99 94 07/03 0100 83 23 137/62 89 91 07/03 0000 85 25 147/70 100 91 07/02 2300 81 22 138/76 101 92 07/02 2200 86 25 140/79 101 95 07/02 2148 83 26 95 07/02 2146 87 31 94 07/02 2000 98.5 Room air 24 hour I O ending at 0700: 07/03 0700 07/02 1900 Intake Total Output Total 1300 Balance -1300 Output, Urine 1300 Patient 86.5 kg Weight Weight Bed scale Measurement Method PATIENT WEIGHT: Weight (lb): 190 Weight (oz): 11.2 Weight (kg): 86.500 Medications: Active Meds + DC'd Last 24 Hrs Atorvastatin Calcium (LIPITOR) 20 MG BEDTIME PO Aspirin (ASPIRIN) 81 MG DAILY PO Heparin Sodium (HEPARIN 5000 UNITS/ML) 5,000 UNI T Q12HR SUBQ Metoprolol Tartrate (LOPRESSOR) 12.5 MG BID PO Mupirocin (BACTROBAN 2% 22 GM OINTMENT) 1 APPLIC BID NASAL Tamsulosin HCl (Flomax 0.4 mg) 0.4 MG BEDTIME PO Docusate Sodium (COLACE) 100 MG BID PRN PRN PO Labetalol HCl (LABETALOL HCL) 10 MG Q6H PRN PRN IV Ondansetron HCl (ZOFRAN) 4 MG Q4H PRN PRN IV Physical Exam General appearance: alert, awake, oriented Head/eyes: atraumatic, normocephalic ENT: moist mucous membranes, normal nose Neck: non-tender, no JVD Cardiovascular: regular rate and rhythm, no murm ur Respiratory: normal breath sounds, no distress Abdomen: no guarding, no rebound Extremities: non-tender, no edema Skin: dry, no rash Results Findings/Data: Laboratory Tests 07/03 07/03 0623 0623 Chemistry Sodium (134 - 147 mEq/L) 144 Potassium (3.4 - 5.0 mEq/L) 3.3 L Chloride (100 - 108 mEq/L) 109 H Carbon Dioxide (21 - 33 mEq/l) 22 Anion Gap (0 - 20) 16 BUN (7 - 18 mg/dL) 68 H Creatinine (0.6 - 1.3 mg/dL) 7.3 H Glomerular Filtr Rate (70 - 80) 7.1 L Glucose (70 - 110 mg/dL) 103 Hemoglobin A1c (4.8 - 6.0 %A1C) 5.2 Calcium (8.0 - 10.5 mg/dL) 8.0 Triglycerides (40 - 150 mg/dL) 119 Cholesterol (<200 mg/dL) 119 LDL Cholesterol Measurd (0 - 100 mg/dL) 90.1 HDL Cholesterol (32 - 72 mg/dL) < 20.0 L Cholesterol/HDL Ratio (3.43 - 4.97 RATIO) 5.00 H TSH (0.42 - 5.47) 3.33 Laboratory Tests 07/03 0623 Hematology WBC (4.5 - 11.0 x10 3/uL) 10.3 RBC (4.00 - 5.60 x10 6/uL) 3.09 L Hgb (12.5 - 16.9 g/dL) 9.5 L Hct (37.5 - 50.7 %) 29.4 L MCV (81.0 - 99.0 fL) 95.1 MCH (27.0 - 33.0 pg) 30.7 MCHC (33.0 - 37.0 g/dL) 32.3 L RDW (11.5 - 14.5 %) 15.3 H Plt Count (150 - 400 x10 3/uL) 195 MPV (7.0 - 9.0 fL) 10.7 H Neut % (Auto) (56.0 - 77.0 %) 67.3 Lymph % (Auto) (14.0 - 32.0 %) 9.4 L [place] % (Auto) (4.8 - 9.0 %) 10.0 H Eos % (Auto) (0.3 - 3.7 %) 11.7 H Baso % (Auto) (0.0 - 2.0 %) 0.6 Neut # (Auto) (2.0 - 7.6 x10 3/uL) 6.93 Lymph # (Auto) (1.0 - 3.8 x10 3/uL) 0.97 L [place] # (Auto) (0.1 - 0.8 x10 3/uL) 1.03 H Eos # (Auto) (0.0 - 0.2 x10 3/uL) 1.21 H Baso # (Auto) (0.0 - 0.2 x10 3/uL) 0.06 Abs Immat Gran (auto) (0.00 - 0.03 x10 3/uL) 0. 10 H Add Manual Diff NO Immature Gran % (0.0 - 2.0 %) 1.0 Nucleated RBC % (0 - 0 %) 0.0 Nucleated RBCs # (Man) (0.0 - 0.1 x10 3/uL) 0.0 0 Radiology data: Recent Impressions: RADIOLOGY - XR CHEST 1 V 07/02 2134 Report Impression - Status: SIGNED Entered: 07/03/2022 0753 IMPRESSION: 1. Nonspecific bibasilar opacities may represent atelectasis, edema, and/or pneumonia. 2. Tiny bilateral pleural effusions. Impression By: [email or web address] - Noreen Kimble Diagnosis, Assessment Plan Consultants: cardiology, cardiovascular surgery, nephrology Free Text DxA P Notes Free text DxA P notes: Assessment: 1-CLAUDETTE likely from urinary retention. 2-non-STEMI 3- BPH 4-hypertension 5-hyperlipidemia Plan: -unknown Scr baseline. - He underwent LHC yesterday. HD today for clear ance. -Continue Waters catheter and strict intake and o utput -We will obtain UA/urine sodium and UPCR -Renal ultrasound - CT surgery eval for CABG. - okay for cardiac diet. Thank you for the kind consultation. We will con tinue to follow Mr. Arce Electronically Signed by Evelina Plaza MD on at 1050 RPT #:[id number] END OF REPORT 2022-07-02 19:45:00-00:00 [facility] Hospitalist History Physical REPORT#:[id number] REPORT STATUS: Signed DATE:07/02/22 TIME: 1944 PATIENT: SHERRI ARCE UNIT #: [id number] ROOM/BED: [place] [address] : 42 AGE: 81 SEX: M ATTEND: Maryam Crawford DO ADM AUTHOR: Sarbjit Mcarthur MD * ALL edits or amendments must be made on the [email or web address]/computer document * History of Present Illness HPI Chief complaint: [facility] in need [facility]G PCP: PCP: Los Crawford DO HPI: 81 y/o man with PMHx of HTN, Dyslipidemia [facility]22 with chest pain and found to have a NSTEMI and also acute renal failure. Underwent cardiac c ath yesterday and found to have severe CAD including left main disease. Transfer here f or CABG evaluation. He also underwent HD Thursday and Thursday of this week. HD catheter was place at [facility]. Currently not having any chest pain. Had chest pain with SOB when he presentted to the previous hospital. Informant/historian: patient, prior records History Past Medical Surgical Hx Patient History: 1. 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 Respiratory: Denies: QUINN (dyspnea on exertion), hemoptysis, n on productive cough, parox nocturnal dyspnea, pleurisy, pleuritic pain, pneumonia, productive cough (sputum ), SOB, wheezing, other. Cardiovascular: Reports: chest pain. Denies: QUINN (dyspnea on exe rtion), edema, orthopnea, palpitations, parox nocturnal dyspnea, other. All systems rev neg: except as noted Physical Exam VS/I O: BP -140/79 P - 84 RR - 18 T- 98.6 General appearance: alert, awake, oriented Head/Eyes: atraumatic, EOMI, normal conjunctiva/ sclera, normocephalic, PERRLA ENT: moist mucosal membranes Neck: full range of motion, no bruit/NL carotids , no JVD Cardiovascular: normal heart sounds, regular rat e rhythm Respiratory: aerating well, clear to auscultatio n, symmetric expansion, no distress Abdomen: non-tender, normal bowel sounds , soft, no distention, no guarding, no rebound Extremities: moves all, no cyanosis, no edema Musculoskeletal: normal inspection 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: alert, oriented X 3, normal speech, n o motor deficits, no sensory deficits Skin: intact, normal color, no rash Diagnosis, Assessment Plan Problem List/A P: 1. CAD (coronary artery disease) patient presented with NSTEMI and found to hve severe CAD. Cardiac cath shows: Left Main - Distal 70% LAD - Proximal 80% with another 60% and 70% les sions Cir - Proximal 80%,mid 80-90%, Distal 70% and O M 60% RCA - large dominant with proximal 40%, Mid 60% . Patient on ASA, BB and Statin Cardiology and CV surgeon consulted 2. HTN (hypertension) patient on metoprolol 12.5 mg BID, will adjust as needed 3. Dyslipidemia on Lipitor 20mg po daliy. Will check lipid prof ile in am. 4. CLAUDETTE (acute kidney injury) No prior Hx of renal disease. hx of BPH and casimiro ated with Fosamax w/o improvement nd continue to h ave difficulty urinating. On admission was found to be on acute renal filaure and had received HD tw ice prior to arrival here ( thursday and thursday). Creatinine this am was 7.4, BUN 68 * Probably due to obstructive uropathy * waters already in place * Nephrology consuled for HD 5. BPH (benign prostatic hyperplasia) Started on Flomax at the previous hospital, thais l continue with it. 6. Goiter Hx of Goiter and surgical r esection. Will check TSH. Patient is not on Thyroid medication. Free Text A P: patient was on vancomycin an d Rocephin for Unkown reason. ? UTI. Urine cultures were negative per report. Will re-check CBC, UA and CXR. Hold antibiotics at this time. Consultants: cardiology, cardiovascular surgery, nephrology Plan discussed with: patient Time spent: Time spent on patient care (minutes): 62 Resuscitation discussion: Discussed with: patient Code status: full code Quality: Gen Med Crit Care VTE Prophylaxis VTE prophylaxis initiated: yes Current Medications Current medication review: I attest that the foregoing medication list in t he medical record is true, accurate, and complete to the best of my knowled ge. Advanced Care Plan 65 or Older Discussed with: patient Discussion included: living will (none), power of employment law attorney (none), code status ( full code) at [address] [facility] #:[id number] END OF REPORT
[2022-12-13 14:47] LABS: Absolute Lymphocytes (CBC) 0.8 K/uL (0.7-4.9); Hematocrit 36.2 % (39.6-49.0); Lymphocytes % 9.1 % (15.3-44.8); MPV 8.6 fL (7.6-11.3); RBC Red Blood Cell Count 3.77 M/uL (4.33-5.43)
--- NOTE | 2022-12-13 14:53 | EDPHYS ---
Physician Documentation [facility] Name: Rio Strauss Age: 81 yrs Sex: Male : 1940 Arrival Date: 12/13/2022 Time: 13:32 Bed 16 Private MD: Yuval Moore HPI: 12/13 14:44 This 81 yrs old Male presents to ER via Ambulatory with complaints of Problem alyssa With Urinary Catheter. 14:44 The patient presents with urinary symptoms, wants rowe out. Onset: The alyssa symptoms/episode began/occurred 1 week(s) ago. Modifying factors: The symptoms are alleviated by nothing, the symptoms are aggravated by nothing. Associated signs and symptoms: The patient has no apparent associated signs or symptoms. The patient has not experienced similar symptoms in the past. Historical: - Allergies: 13:54 No Known Allergies; nj1 - PMHx: 13:54 Dialysis; Hyperlipidemia; Hypertension; Myocardial infarction; Kidney disease; nj1 - PSHx: 13:54 cardiac stents; Coronary artery bypass graft; Coronary Angioplasty; nj1 - Immunization history:: Client reports receiving the 2nd dose of the Covid vaccine. - Social history:: Smoking status: Patient denies any tobacco usage or history of. ROS: 14:46 Constitutional: Negative for fever, chills, and weight loss, Eyes: Negative for injury, alyssa pain, redness, and discharge, ENT: Negative for injury, pain, and discharge, Neck: Negative for injury, pain, and swelling, Cardiovascular: Negative for chest pain, palpitations, and edema, Respiratory: Negative for shortness of breath, cough, wheezing, and pleuritic chest pain, Abdomen/GI: Negative for abdominal pain, nausea, vomiting, diarrhea, and constipation, Back: Negative for injury and pain, MS/Extremity: Negative for injury and deformity, Skin: Negative for injury, rash, and discoloration, Neuro: Negative for headache, weakness, numbness, tingling, and seizure, Psych: Negative for depression, anxiety, suicide ideation, homicidal ideation, and hallucinations, Allergy/Immunology: Negative for hives, rash, and allergies, Endocrine: Negative for neck swelling, polydipsia, polyuria, polyphagia, and marked weight changes, Hematologic/Lymphatic: Negative for swollen nodes, abnormal bleeding, and unusual bruising. 14:46 : Positive for Exam: 14:46 Constitutional: This is a well developed, well nourished patient who is awake, alert, alyssa and in no acute distress. Head/Face: Normocephalic, atraumatic. Eyes: Pupils equal round and reactive to light, extra-ocular motions intact. Lids and lashes normal. Conjunctiva and sclera are non-icteric and not injected. Cornea within normal limits. Periorbital areas with no swelling, redness, or edema. ENT: Nares patent. No nasal discharge, no septal abnormalities noted. Tympanic membranes are normal and external auditory canals are clear. Oropharynx with no redness, swelling, or masses, exudates, or evidence of obstruction, uvula midline. Mucous membranes moist. Neck: Trachea midline, no thyromegaly or masses palpated, and no cervical lymphadenopathy. Supple, full range of motion without nuchal rigidity, or vertebral point tenderness. No Meningismus. Chest/axilla: Normal chest wall appearance and motion. Nontender with no deformity. No lesions are appreciated. Cardiovascular: Regular rate and rhythm with a normal S1 and S2. No gallops, murmurs, or rubs. Normal PMI, no JVD. No pulse deficits. Respiratory: Lungs have equal breath sounds bilaterally, clear to auscultation and percussion. No rales, rhonchi or wheezes noted. No increased work of breathing, no retractions or nasal flaring. Abdomen/GI: Soft, non-tender, with normal bowel sounds. No distension or tympany. No guarding or rebound. No evidence of tenderness throughout. Back: No spinal tenderness. No costovertebral tenderness. Full range of motion. Skin: Warm, dry with normal turgor. Normal color with no rashes, no lesions, and no evidence of cellulitis. MS/ Extremity: Pulses equal, no cyanosis. Neurovascular intact. Full, normal range of motion. Neuro: Awake and alert, GCS 15, oriented to person, place, time, and situation. Cranial nerves II-XII grossly intact. Motor strength 5/5 in all extremities. Sensory grossly intact. Cerebellar exam normal. Normal gait. Psych: Awake, alert, with orientation to person, place and time. Behavior, mood, and affect are within normal limits. 14:46 : CVA tenderness, is absent, Male external genitalia: normal, Bladder: is normal, Sexual behavior: the patient is not sexually active, a rowe is noted. Vital Signs: 13:45 BP 116 / 63; Pulse 86; Resp 18; Temp 98.2; Pulse Ox 99% on R/A; Weight 81.65 kg; Height nj1 5 ft. 8 in. ; Pain 0/10; 14:51 BP 105 / 48; Pulse 79; Resp 16 S; Pulse Ox 95% on R/A; Pain 0/10; kc6 15:58 BP 107 / 60; Pulse 75; Resp 16 S; Pulse Ox 100% on R/A; kc6 13:45 Body Mass Index 27.37 (81.65 kg, 172.72 cm) nj1 13:45 Pain Scale: Adult nj1 14:51 Pain Scale: Adult kc6 [place] Coma Score: 14:46 Eye Response: spontaneous(4). Motor Response: obeys commands(6). Verbal Response: alyssa oriented(5). Total: 15. MDM: 13:48 Patient medically screened. [facility] 14:48 Differential diagnosis: UTI, urinary retention, Rowe catheter problem, prostatitis, alyssa urethritis. Data reviewed: vital signs, nurses notes, lab test result(s), CBC, electrolytes, hepatic panel. Consideration of Admission/Observation Escalation of care including admission/observation considered. I considered the following discharge prescriptions or medication management in the emergency department Medications were administered in the Emergency Department. See MAR. Test considered but Not performed: CT: no ct stone. Care significantly affected by the following chronic conditions: Hypertension, Chronic Kidney Disease, dialysis. 12/13 14:30 Order name: Urinalysis w/ reflexes; Complete Time: 15:28 [facility] 12/13 14:30 Order name: CBC with Diff; Complete Time: 15:28 [facility] 12/13 14:30 Order name: CMP; Complete Time: 15:28 [facility] 12/13 14:30 Order name: Lipase; Complete Time: 15:28 [facility] 12/13 15:28 Order name: Urine Culture [facility] 12/13 14:30 Order name: IV Saline Lock; Complete Time: 14:30 [facility] 12/13 14:30 Order name: Labs collected and sent; Complete Time: 14:30 [facility] 12/13 14:44 Order name: Misc. Order: remove rowe; Complete Time: 15:52 alyssa Administered Medications: 15:52 Drug: Rocephin IV 1 grams Route: IV; Rate: per protocol; Site: left antecubital; kc6 16:02 Follow up: Response: No adverse reaction; IV Status: Completed infusion kc6 Disposition Summary: 12/13/22 14:53 Discharge Ordered Location: Home alyssa Problem: new alyssa Symptoms: have improved alyssa Condition: Stable alyssa Diagnosis - Other mechanical complication of other urinary catheter, initial encounter - wants [facility] rowe out - UTI/ Urinary tract infection, site not specified alyssa - End stage renal disease - on HD alyssa Followup: alyssa - With: Private Physician - When: 2 - 3 days - Reason: Recheck today's complaints, Continuance of care, Re-evaluation by your physician Followup: alyssa - With: Marcello Rodriguez MD - When: 2 - 3 days - Reason: Recheck today's complaints, Re-evaluation by your physician Discharge Instructions: - Discharge Summary Sheet alyssa - Indwelling Urinary Catheter Care, Adult alyssa - Urinary Tract Infection, Adult alyssa - Indwelling Urinary Catheter Care, Adult, [id number] alyssa - Hemodialysis alyssa - Indwelling Urinary Catheter Removal at Home, Male alyssa Forms: - Medication Reconciliation Form alyssa - Thank You Letter alyssa - Antibiotic Education alyssa - Prescription Opioid Use [facility] - [email or web address] [facility] Prescriptions: - Flomax 0.4 mg Oral capsule - take 1 capsule by ORAL route every day at bedtime; 30 capsule; Refills: 0, alyssa Product Selection Permitted - cefdinir 300 mg Oral capsule - take 1 capsule by ORAL route 2 times per day; 10 capsule; Refills: 0, Product [facility] Selection Permitted Signatures: Dispatcher [employer] Yuval Sorensen MD MD cha Campbell, Kaitlyn RN RN kc6 Paty Thomason RN RN nj1 Corrections: (The following items were deleted from the chart) 13:56 13:54 PSHx: bypass; nj1 nj1
--- NOTE | 2022-12-13 14:53 | ER ---
Nurse's Notes [facility] Name: Rio Strauss Age: 81 yrs Sex: Male : 1940 Arrival Date: 12/13/2022 Time: 13:32 Bed 16 Private MD: Diagnosis: Other mechanical complication of other urinary catheter, initial encounter-wants rowe out;UTI/ Urinary tract infection, site not specified;End stage renal disease-on HD Presentation: 12/13 13:45 Chief complaint: Patient states: Wants rowe catheter removed. States it is irritating nj1 and leaking. Has had it since he got out of the hospital back in July 28. Coronavirus screen: Vaccine status: Patient reports receiving the 2nd dose of the covid vaccine. Ebola Screen: Patient denies travel to an Ebola-affected area in the 21 days before illness onset. 13:45 Method Of Arrival: Ambulatory [facility] 13:45 Initial Sepsis Screen: Does the patient meet any 2 criteria? No. Patient's initial [facility] sepsis screen is negative. Does the patient have a suspected source of infection? No. Patient's initial sepsis screen is negative. Risk Assessment: Do you want to hurt yourself or someone else? Patient reports no desire to harm self or others. 13:45 Acuity: SHI 3 nj 13:45 Onset of symptoms was December 10, 2022. [facility] Historical: - Allergies: 13:54 No Known Allergies; nj1 - PMHx: 13:54 Dialysis; Hyperlipidemia; Hypertension; Myocardial infarction; Kidney disease; nj1 - PSHx: 13:54 cardiac stents; Coronary artery bypass graft; Coronary Angioplasty; nj1 - Immunization history:: Client reports receiving the 2nd dose of the Covid vaccine. - Social history:: Smoking status: Patient denies any tobacco usage or history of. Screenin:59 [facility] ED Fall Risk Assessment (Adult) History of falling in the last 3 months, kc6 including since admission No falls in past 3 months (0 pts) Confusion or Disorientation No (0 pts) Intoxicated or Sedated No (0 pts) Impaired Gait No (0 pts) Mobility Assist Device Used No (0 pt) Altered Elimination Yes (1 pt) Score/Fall Risk Level 0 - 2 = Low Risk Oriented to surroundings, Maintained a safe environment, Educated pt \T\ family on fall prevention, incl call for assistance when getting out of bed, Assessed \T\ reinforced patient's understanding of fall precautions, Hourly rounding (assess needs \T\ fall precautionary measures) done. Abuse screen: Denies threats or abuse. Denies injuries from another. Nutritional screening: No deficits noted. Tuberculosis screening: No symptoms or risk factors identified. Assessment: 13:59 General: Appears in no apparent distress. comfortable, Behavior is calm, cooperative, kc6 appropriate for age, Smells of stale urine. Pain: Denies pain. Neuro: Level of Consciousness is awake, alert, obeys commands, Oriented to person, place, time, situation, Appropriate for age. Cardiovascular: Capillary refill < 3 seconds Dialysis shunt: in the anterior aspect of right upper chest, with no erythema, with no edema, no bleeding noted. Respiratory: Airway is patent Trachea midline Respiratory effort is even, unlabored, Respiratory pattern is regular, symmetrical. GI: No signs and/or symptoms were reported involving the gastrointestinal system. : Rowe in place to gravity drainage clamped Urine is cloudy. EENT: No signs and/or symptoms were reported regarding the EENT system. Derm: No signs and/or symptoms reported regarding the dermatologic system. Skin is intact, Skin is pink, warm \T\ dry. Musculoskeletal: No signs and/or symptoms reported regarding the musculoskeletal system. Circulation, motion, and sensation intact. Capillary refill < 3 seconds, Range of motion: intact in all extremities. 14:55 Reassessment: d/c pending lab/urine results per MD. [facility] 14:59 Reassessment: Patient appears in no apparent distress at this time. No changes from [facility] previously documented assessment. Patient and/or family updated on plan of care and expected duration. Pain level reassessed. Patient is alert, oriented x 3, equal unlabored respirations, skin warm/dry/pink. 15:52 Reassessment: rowe catheter removed, intact. d/c pending pt to void on own. kc6 15:55 Reassessment: Patient appears in no apparent distress at this time. No changes from [facility] previously documented assessment. Patient and/or family updated on plan of care and expected duration. Pain level reassessed. Patient is alert, oriented x 3, equal unlabored respirations, skin warm/dry/pink. 16:05 Reassessment: pt voided on his own, reports clear, yellow urine. kc6 Vital Signs: 13:45 BP 116 / 63; Pulse 86; Resp 18; Temp 98.2; Pulse Ox 99% on R/A; Weight 81.65 kg; Height nj1 5 ft. 8 in. ; Pain 0/10; 14:51 BP 105 / 48; Pulse 79; Resp 16 S; Pulse Ox 95% on R/A; Pain 0/10; kc6 15:58 BP 107 / 60; Pulse 75; Resp 16 S; Pulse Ox 100% on R/A; kc6 13:45 Body Mass Index 27.37 (81.65 kg, 172.72 cm) nj1 13:45 Pain Scale: Adult nj1 14:51 Pain Scale: Adult kc6 [place] Coma Score: 14:46 Eye Response: spontaneous(4). Motor Response: obeys commands(6). Verbal Response: alyssa oriented(5). Total: 15. ED Course: 13:33 Patient arrived in ED. ts1 13:48 Yuval Sy MD is Attending Physician. alyssa 13:48 Samra Anderson RN is Primary Nurse. kc6 13:54 Triage completed. nj1 13:56 Arm band placed on right wrist. nj1 13:59 Patient has correct armband on for positive identification. Bed in low position. Call kc6 light in reach. Side rails up X2. 14:30 Inserted saline lock: 20 gauge in left antecubital area, using aseptic technique. Blood kc6 collected. 14:51 Marcello Rodriguez MD is Referral Physician. alyssa 16:09 No provider procedures requiring assistance completed. IV discontinued, intact, kc6 bleeding controlled, No redness/swelling at site. Pressure dressing applied. Administered Medications: 15:52 Drug: Rocephin IV 1 grams Route: IV; Rate: per protocol; Site: left antecubital; kc6 16:02 Follow up: Response: No adverse reaction; IV Status: Completed infusion kc6 Medication: 16:10 VIS not applicable for this client. kc6 Outcome: 14:53 Discharge ordered by . alyssa 16:09 Discharged to home ambulatory. kc6 16:09 Condition: improved 16:09 Discharge instructions given to patient, Instructed on discharge instructions, follow up and referral plans. medication usage, Demonstrated understanding of instructions, follow-up care, medications, Prescriptions given X 2. 16:10 Patient left the ED. kc6 Addendum: 12/17/2022 13:08 Addendum: Culture Results: Positive urine culture. Phone call Attempt #1 No answer, no k b3 VM set up. 12/18/2022 16:56 Addendum: Culture Results: Positive urine culture. Phone call Attempt #2 No answer, no k b3 VM set up. Signatures: Yuval Sy MD MD cha Campbell, Kaitlyn, RN RN kc6 Rosa Maria Vázquez RN RN kb3 Paty Thomason RN RN nj1 Damari Quintero PAS PAS ts1 Corrections: (The following items were deleted from the chart) 12/13 13:56 13:54 PSHx: bypass; nj1 nj1 13:59 13:45 Chief complaint: Patient states: Wants rowe catheter removed. States it is nj1 irritating and leaking. Has had it since he got out of the hospital back in July 28. nj1 13:59 13:45 Onset of symptoms nj1 nj1 14:31 13:59 : Rowe in place to gravity drainage clamped Urine is clear, kc6 kc6 14:36 13:59 Cardiovascular: Capillary refill < 3 seconds kc6 kc6 15:58 14:51 Reassessment: Patient appears in no apparent distress at this time. No changes kc6 from previously documented assessment. Patient and/or family updated on plan of care and expected duration. Pain level reassessed. Patient is alert, oriented x 3, equal unlabored respirations, skin warm/dry/pink. kc6 15:58 15:52 Reassessment: Patient appears in no apparent distress at this time. No changes kc6 from previously documented assessment. Patient and/or family updated on plan of care and expected duration. Pain level reassessed. Patient is alert, oriented x 3, equal unlabored respirations, skin warm/dry/pink. kc6 15:58 15:52 Reassessment: rowe cathter d/c'd. d/c pending pt to void on own kc6 kc6
[2022-12-13 15:04] LABS: Specific Gravity 1.027 (1.005-1.030); Urine Bilirubin NEGATIVE (Negative); Urine Blood 1+ (Negative); Urine Clarity Extremely Turbid (Clear); Urine Glucose NEGATIVE (Negative); Urine Protein 2+ (Negative); Urine Urobilinogen Normal (Normal); Urine WBC Clump Many /HPF (None Seen); Urine pH 6.5 (5.0-7.0)
[2022-12-13 15:15] LABS: Albumin 3.4 g/dL (3.4-5.0); Bilirubin Total 0.5 mg/dL (0.2-1.0); Potassium 3.8 mEq/L (3.5-5.1); Protein, Total 8.3 g/dL (6.4-8.2)
[2022-12-13 15:16] LABS: Urine Color DK YELLOW (Yellow)
[2022-12-13 15:17] LABS: Urine Bacteria >50 /HPF (<20)
[2022-12-13] MEDS ORDERED: CEFTRIAXONE 1000 MG/VIAL ONE (15:53)
[2022-12-13 16:42] VITALS: TEMP 98.2
[2022-12-13 16:46] VITALS: BP 107/60; O2SAT 100
== END 2022-12-13 16:10 | disposition home or self-care (01) ==
LOC: ER 13:32
DX: I12.0 Hypertensive chronic kidney disease with stage 5 chronic kidney disease or end stage renal disease (principal); N39.0 Urinary tract infection, site not specified; N18.6 End stage renal disease; Z99.2 Dependence on renal dialysis; E78.5 Hyperlipidemia, unspecified; I25.10 Atherosclerotic heart disease of native coronary artery without angina pectoris; I25.2 Old myocardial infarction; Z95.1 Presence of aortocoronary bypass graft; Z95.5 Presence of coronary angioplasty implant and graft
CPT/HCPCS: 87088; 85025; 81001; 87086; 36415; 87077; 87186; 83690; 80053; 96374; 99284; J0696

== ENCOUNTER 2022-12-16 13:20 | Emergency (ER) | payer OTHER ==
--- OUTSIDE RECORDS SUMMARY | 2022-12-16 13:35 | XMS REPORT | Continuity of Care Document ---
:1940 Author Organization [facility] t Address [address] [place] [address] Care Team Providers Name Role Phone TONY QUEEN Primary Care Physician Unavailable JACQUE SHERIDAN Attending Clinician Unavailable ELIZABETH FULLER Attending Clinician Unavailable ELIZABETH FULLER Attending Clinician Unavailable MIRZA NASSAR Attending Clinician Unavailable Doctor Unassigned, Dale Attending Clinician Unavailable Jacque Sheridan MD Attending [...] Expiration Date S kane [employer] [place] [id number] 2022 CLASSIC NO PREMIUM 00:00:00 [place] [employer] [place] [id number] (MEDICARE REPLACEMENT/ADVANT AGE - HMO) [employer] [place] - [id number] 2019 [place] 00:00:00 (MEDICARE REPLACEMENT/ADVANT AGE - HMO) Problems Condition Condition Condition Status Onset Resolution Last Treating Co mments Source Name Details Category Date Date Treatment Clinician Date Coronary Coronary Disease Active Unive rs artery artery 09-01 ity of disease disease 00:00: [place] involving involving 00 Medi pillo salamatof salamatof Branch coronary coronary artery of artery of salamatof salamatof heart heart without without angina angina pectoris pectoris Atrial Atrial Disease Active Univers fibrillati fibrillati 09-01 it y of on, on, 00:00: [place] unspecifie unspecifie 00 Me dical d type d type Branch 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 09-01 ity of failure failure 00:00: [place] with with 00 Medical preserved preserved Bran ch ejection ejection fraction fraction Hyperlipid Hyperlipid Disease Active U nivers emia, emia, 09-01 ity of unspecifie [place]spec[place] 00 Medical hyperlipid hyperlipid Br anch emia type emia type Primary Primary Disease Active Univers hypertensi hypertensi 09-01 it y of on on 00:00: [place] 00 Medical Branch 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 09-01 ity of renal renal 00:00: [place] disease) disease) 00 Medica l Branch Allergies, Adverse Reactions, Alerts Allergy Allergy Status Severity Reaction(s) Onset Inactive Treating Comm ents Source Name Type Date Date Clinician No Known DA Active U [facility] Allergie 1-25 Clear s 00:00: [place] 00 [facility] NO KNOWN Drug Active Univers ALLERGIE Class ity of S [facility] Social History Social Habit Start Date Stop Date Quantity Comments Source History of Cigarette Smoker Universi ty of tobacco use [facility] Exposure to 2022-10-19 2022-10-29 Not sure University SARS-CoV-2 00:00:00 09:28:00 [facility] (event) [place] Tobacco use and 2022-09-01 2022-09-01 Smokeless tobacco Un iversity of exposure 00:00:00 00:00:00 non-user [facility] Sex Assigned At [birth year] Universit y of 00:00:00 00:00:00 [facility] Smoking Status Start Date Stop Date Source Ex-smoker 2022-09-01 00:00:00 2022-09-01 00:00:00 [facility] Medical Branch Medications Ordered Filled Start Stop Current Ordering Indication Dosage Frequency Signature Comments Components Source Medication Medication Date Date Medication? Clinician (SIG) Name Name gtaoodrine 2022- No 10mg Take 1 Unive rs 10 mg 6-27 -27 tablet by ity of tablet 15:58: 00:00 mouth in [place] 48 :00 the Medical morning Branch and 1 tablet at noon and 1 tablet in the evening. midodrine 2022-0 Yes [id number] 15mg Take 1.5 Univers 10 mg 6-27 tablets by ity of tablet 00:00: mouth in [place] 00 the Medical morning Branch and 1.5 tablets at noon and 1.5 tablets in the evening. midodrine 2022-0 Yes [id number] 15mg Take 1.5 Univers 10 mg 6-27 tablets by ity of tablet 00:00: mouth in [place] 00 the Medical morning Branch and 1.5 tablets at noon and 1.5 tablets in the evening. acetaminoph 2022-0 Yes Take by Uni vers en 325 mg 5-18 mouth ity of tablet 13:44: every 6 [place] [address] (six) Medical hours as Branch needed. atorvastati 2022-0 Yes 40mg Take 1 Univ ers n 40 mg 5-18 tablet by ity of tablet 13:44: mouth [place] 00 every Medical evening. Branch clopidogreL 2022-0 Yes 75mg Take 1 Univ ers 75 mg 5-18 tablet by ity of tablet 13:44: mouth in [place] 00 the Medical morning. Branch midodrine 2022-0 Yes 10mg Take 1 Univer s 10 mg 5-18 tablet by ity of tablet 13:44: mouth in [place] 00 the Medical morning Branch and 1 tablet at noon and 1 tablet in the evening. cyanocobala 2022-0 Yes Take by Uni vers min, 5-18 mouth. ity of vitamin 13:44: [place] B-12, 00 Medical (VITAMIN Branch B12 ORAL) acetaminoph 2022-0 Yes Take by Uni vers en 325 mg 5-18 mouth ity of tablet 13:44: every 6 [place] 00 (six) Medical hours as Branch needed. [...] [place] 00 the Medical morning. Branch cyanocobala 2022-0 Yes Take by Uni vers min, 5-18 mouth. ity of vitamin 13:44: [place] B-12, 00 Medical (VITAMIN Branch B12 ORAL) lactated 2022-0 Yes 1000mL at 100 Unive rs ringers IV 5-04 mL/hr, ity of infusion 14:30: 1,000 [place] 1,000 [place] 00 IV Medical Infusion, Branch CONTINUOUS , Starting on Yvette 10/09/22 at 0930, Until Discontinu ed, Routine, PACU lactated 2022-0 2022- No 1000mL at 100 Univ ers ringers [...] Routine, Pain (scale 4-6), DSU Recovery acetaminoph 0 Yes 650mg 650 mg, Un keysha en 5-04 Oral, PRN, ity of (TYLENOL) 14:29: 1 dose, [place] tablet 650 46 Starting Medic al mg on [place] Branch 10/09/22 at 0929, Until Discontinu ed, Routine, Pain (scale 1-3), DSU Recovery traMADoL 0 2022- No 50mg 50 mg, Univer s (ULTRAM) 5-04 05-04 Oral, PRN, ity of tablet 50 14:29: 17:43 1 dose, [place] mg 46 :01 Starting Medical on [place] Branch 10/09/22 at 0929, Until [place] 10/09/22 at 1243, Routine, Pain (scale 4-6), DSU Recovery acetaminoph 0 2022- No 650mg 650 mg, U nivers en - 05-04 Oral, PRN, ity of (TYLENOL) 14:29: 17:43 1 dose, [place] tablet 650 46 :01 Starting Medic al mg on [place] Branch 10/09/22 at 0929, Until [place] 10/09/22 at 1243, Routine, Pain (scale 1-3), DSU Recovery HYDROmorphO 2022-0 Yes .2mg 0.2 mg, Uni vers ne -04 Slow IV ity of (DILAUDID) 14:27: Push, [...] ity o f (PF)) 14:27: 17:43 Push, [place] injection 27 :01 Q5MIN PRN, Medi pillo [...] PACU bupivacaine Yes PRN, Univer s (preserv 04 Starting ity of free) 14:10: on [place]vette [place] (SENSORCAIN 00 10/09/22 at Med ical E MPF) 0.25 0910, Branch % (2.5 Until mg/mL) Discontinu injection ed, Routine, Intra-op bupivacaine 2022- No PRN, Unive rs (preserv 10-09 Starting ity of free) 14:10: 17:43 on [facility] (SENSORCAIN 00 :01 10/09/22 at Med ical E MPF) 0.25 0910, Branch % (2.5 Until [place] mg/mL) 10/09/22 at injection 1243, Routine, Intra-op NaCl 0.9% 2022- No CONTINUOUS U nivers (NS) IV 10-09 PRN, ity of infusion 12:52: 14:25 [place] 00 [place]01 on [facility] 10/09/22 at Branch 0752, Until [facility] 10/09/22 at 0925, Routine, Intra-op heparin 2022- No CONTINUOUS Uni vers 25,000 10-09 PRN, ity of Units/250 12:52: 14:25 Starting [place] mL 00 :01 on [place] Medical (Premixed 10/09/22 at [facility] h Bag) in 0752, 0.45 % NS Until Yvette 10/09/22 at 0925, Routine, Intra-op acetaminoph 2023-0 Yes Take by Uni vers en 325 mg 5-04 mouth ity of tablet 10:43: every 6 [place] (six) Medical hours as Branch needed. atorvastati 2023-0 Yes 40mg Take 1 Univ ers n 40 mg 5-04 tablet by ity of tablet 10:43: mouth every Medical evening. Branch clopidogreL 2023-0 Yes 75mg Take 1 Univ ers 75 mg 5-04 tablet by ity of tablet 10:43: mouth in [place] the Medical morning. Branch midodrine 3-0 Yes 10mg Take 1 Univer s 10 mg 5-04 tablet by ity of tablet 10:43: mouth in [place] the Medical morning Branch and 1 tablet at noon and 1 tablet in the evening. tamsulosin 2023-0 Yes Take by Univ ers 0.4 mg 24 5-04 mouth ity of hr capsule 10:43: every [place] evening. Medical Branch cyanocobala 3-0 Yes Take by Uni vers min, 5-04 mouth. ity of vitamin 10:43: [place] - Medical (VITAMIN Branch B12 ORAL) acetaminoph 2022-0 Yes Take by Uni vers en 325 mg 5-04 mouth ity of tablet 10:43: every 6 [place] (six) Medical hours as Branch needed. atorvastati 3-0 Yes 40mg Take 1 Univ ers n 40 mg 5-04 tablet by ity of tablet 10:43: mouth [place] every Medical evening. Branch clopidogreL 2023-0 Yes 75mg Take 1 Univ ers 75 mg 5-04 tablet by ity of tablet 10:43: mouth in [place] 01 the Medical morning. Branch midodrine 2023-0 Yes 10mg Take 1 Univer s 10 mg 5-04 tablet by ity of tablet 10:43: mouth in [place] the Medical morning Branch and 1 tablet at noon and 1 tablet in the evening. tamsulosin 2023-0 Yes Take by Univ ers 0.4 mg 24 5-04 mouth ity of hr capsule 10:43: every [place] 01 evening. Medical Branch cyanocobala 2023-0 Yes Take by Uni vers min, 5-04 mouth. ity of vitamin 10:43: [place] B- Medical (VITAMIN Branch B12 ORAL) FUROSEMIDE 2022-0 3- No 20mg Take 20 mg Univers ORAL 10-02- by mouth ity of 09:41: 00:00 in the [place] 19 :00 morning. Medical Branch FUROSEMIDE 2022-0 3- No 20mg Take 20 mg Univers ORAL 10-02- by mouth ity of 09:41: 00:00 in the [place] 19 :00 morning. Medical Branch NaCl 0.9% 2022-0 Yes 1000mL at 42 Unive rs (NS) IV 4-21 mL/hr, IV ity of infusion 11:30: Infusion, [place] 1,000 mL 00 CONTINUOUS Medic al , Starting Branch on Thu09/26/22 at 0630, Until Discontinu ed, Routine, DSU Pre-op acetaminoph 2022-0 Yes Take by Uni vers en 325 mg 4-21 mouth ity of tablet 06:41: every 6 [place] [address] (six) Medical hours as Branch needed. atorvastati 2022-0 Yes 40mg Take 1 Univ ers n 40 mg 4-21 tablet by ity of tablet 06:41: mouth [place] [address] every Medical evening. Branch clopidogreL 2022-0 Yes 75mg Take 1 Univ ers 75 mg 4-21 tablet by ity of tablet 06:41: mouth in [place] [address] the Medical morning. Branch FUROSEMIDE 2022-0 Yes Take by Univ ers ORAL 4-21 mouth ity of 06:41: daily. [place] [address] Medical Branch midodrine 2022-0 Yes 10mg Take 1 Univer s 10 mg 4-21 tablet by ity of tablet 06:41: mouth in [place] [address] the Medical morning Branch and 1 tablet at noon and 1 tablet in the evening. tamsulosin 2022-0 Yes Take by Univ ers 0.4 mg 24 4-21 mouth ity of hr capsule 06:41: every [place] [address] evening. Medical Branch cyanocobala 2022-0 Yes Take by Uni vers min, 4-21 mouth. ity of vitamin 06:41: [facility] Medical (VITAMIN Branch B12 ORAL) acetaminoph 2022-0 Yes Take by Uni vers en 325 mg 4-21 mouth ity of tablet 06:41: every 6 [place] [address] (six) Medical hours as Branch needed. atorvastati 2023-0 Yes 40mg Take 1 Univ ers n 40 mg 4-21 tablet by ity of tablet 06:41: mouth [place] [address] every Medical evening. Branch clopidogreL 2023-0 Yes 75mg Take 1 Univ ers 75 mg 4-21 tablet by ity of tablet 06:41: mouth in [place] [address] the Medical morning. Branch FUROSEMIDE 2023-0 Yes Take by Univ ers ORAL 4-21 mouth ity of 06:41: daily. [place] [address] Medical Branch midodrine 2023-0 Yes 10mg Take 1 Univer s 10 mg 4-21 tablet by ity of tablet 06:41: mouth in [place] [address] the Medical morning Branch and 1 tablet at noon and 1 tablet in the evening. tamsulosin 2023-0 Yes Take by Univ ers 0.4 mg 24 4-21 mouth ity of hr capsule 06:41: every [place] [address] evening. Medical Branch cyanocobala 3-0 Yes Take by Uni vers min, 4-21 mouth. ity of vitamin 06:41: [place] [address] Medical (VITAMIN Branch B12 ORAL) acetaminoph 3-0 Yes Take by Uni vers en 325 mg 4-21 mouth ity of tablet 06:41: every 6 [place] [address] (six) Medical hours as Branch needed. atorvastati 3-0 Yes 40mg Take 1 Univ ers n 40 mg 4-21 tablet by ity of tablet 06:41: mouth [place] [address] every Medical evening. Branch clopidogreL 2023-0 Yes 75mg Take 1 Univ ers 75 mg 4-21 tablet by ity of tablet 06:41: mouth in [place] [address] the Medical morning. Branch FUROSEMIDE 2023-0 Yes Take by Univ ers ORAL 4-21 mouth ity of 06:41: daily. [place] [address] Medical Branch midodrine 3-0 Yes 10mg Take 1 Univer s 10 mg 4-21 tablet by ity of tablet 06:41: mouth in [place] [address] the Medical morning Branch and 1 tablet at noon and 1 tablet in the evening. tamsulosin 2023-0 Yes Take by Univ ers 0.4 mg 24 4-21 mouth ity of hr capsule 06:41: every [place] [address] evening. Medical Branch cyanocobala 3-0 Yes Take by Uni vers min, 4-21 mouth. ity of vitamin 06:41: [place] B-12, 51 Medical (VITAMIN Branch B12 ORAL) furosemide 2022-0 Yes 40mg Take 1 Unive rs 40 mg 4-19 tablet by ity of tablet 00:00: mouth in [place] 00 the Medical morning. Branch furosemide 2022-0 Yes 40mg Take 1 Unive rs 40 mg 4-19 tablet by ity of tablet 00:00: mouth in [place] 00 the Medical morning. Branch furosemide 3-0 2023- No 40mg Take 1 Univ ers 40 mg 4-19 05-24 tablet by ity of tablet 00:00: 00:00 mouth in [place] 00 :00 the Medical morning. Branch furosemide 2023-0 2023- No 40mg Take 1 Univ ers 40 mg 4-19 05-24 tablet by ity of tablet 00:00: 00:00 mouth in [place] 00 :00 the Medical morning. Branch furosemide 3-0 2023- No 40mg Take 1 Univ ers 40 mg 4-19 05-24 tablet by ity of tablet 00:00: 00:00 mouth in [place] 00 :00 the Medical morning. Branch acetaminoph 2022-0 Yes Take by Uni vers en 325 mg 4-14 mouth ity of tablet 13:37: every 6 [place] [address] (six) Medical hours as Branch needed. atorvastati 2022-0 Yes 40mg Take 1 Univ ers n 40 mg 4-14 tablet by ity of tablet 13:37: mouth [place] [address] every Medical evening. Branch clopidogreL 2022-0 Yes 75mg Take 1 Univ ers 75 mg 4-14 tablet by ity of tablet 13:37: mouth in [place] [address] the Medical morning. Branch FUROSEMIDE 2022-0 Yes Take by Univ ers ORAL 4-14 mouth ity of 13:37: daily. [place] [address] Medical Branch midodrine 2022-0 Yes 10mg Take 1 Univer s 10 mg 4-14 tablet by ity of tablet 13:37: mouth in [place] [address] the Medical morning Branch and 1 tablet at noon and 1 tablet in the evening. tamsulosin 2022-0 Yes Take by Univ ers 0.4 mg 24 4-14 mouth ity of hr capsule 13:37: every [place] [address] evening. Medical Branch cyanocobala 2022-0 Yes Take by Uni vers min, 4-14 mouth. ity of vitamin 13:37: [place] B-12, 48 Medical (VITAMIN Branch B12 ORAL) amiodarone 2022-0 2023- No 200mg Take 1 Uni vers 200 mg 3-27 -27 tablet by ity of tablet 10:11: 00:00 mouth in [place] 10 :00 the Medical morning Branch and 1 tablet in the evening. amiodarone 2023-0 2023- No 200mg Take 1 Uni vers 200 mg 3-27 -27 tablet by ity of tablet 10:11: 00:00 mouth in [place] 10 :00 the Medical morning Branch and 1 tablet in the evening. amiodarone 2023-0 2023- No 200mg Take 1 Uni vers 200 mg 3-27 - tablet by ity of tablet 10:11: 00:00 mouth in [place] 10 :00 the Medical morning Branch and 1 tablet in the evening. amiodarone 3-0 2023- No 200mg Take 1 Uni vers 200 mg 3-27 - tablet by ity of tablet 10:11: 00:00 mouth in [place] 10 :00 the Medical morning Branch and 1 tablet in the evening. acetaminoph 3-0 Yes Take by Uni vers en 325 mg 3-27 mouth ity of tablet 09:51: every 6 [place] [address] (six) Medical hours as Branch needed. atorvastati 3-0 Yes 40mg Take 1 Univ ers n 40 mg 3-27 tablet by ity of tablet 09:51: mouth [place] [address] every Medical evening. Branch clopidogreL 3-0 Yes 75mg Take 1 Univ ers 75 mg 3-27 tablet by ity of tablet 09:51: mouth in [place] [address] the Medical morning. Branch FUROSEMIDE 3-0 Yes Take by Univ ers ORAL 3-27 mouth ity of 09:51: daily. [place] [address] Medical Branch midodrine 3-0 Yes 10mg Take 1 Univer s 10 mg 3-27 tablet by ity of tablet 09:51: mouth in [place] 16 the Medical morning Branch and 1 tablet at noon and 1 tablet in the evening. tamsulosin 3-0 Yes Take by Univ ers 0.4 mg 24 3-27 mouth ity of hr capsule 09:51: every [place] [address] evening. Medical Branch cyanocobala 3-0 Yes Take by Uni vers min, 3-27 mouth. ity of vitamin 09:51: [place] B-12, 16 Medical (VITAMIN Branch B12 ORAL) acetaminoph 3-0 Yes Take by Uni vers en 325 mg 3-27 mouth ity of tablet 09:51: every 6 [place] [address] (six) Medical hours as Branch needed. atorvastati 3-0 Yes 40mg Take 1 Univ ers n 40 mg 3-27 tablet by ity of tablet 09:51: mouth [place] [address] every Medical evening. Branch clopidogreL 3-0 Yes 75mg Take 1 Univ ers 75 mg 3-27 tablet by ity of tablet 09:51: mouth in [place] [address] the Medical morning. Branch FUROSEMIDE 3-0 Yes Take by Univ ers ORAL 3-27 mouth ity of 09:51: daily. [place] [address] Medical Branch midodrine 3-0 Yes 10mg Take 1 Univer s 10 mg 3-27 tablet by ity of tablet 09:51: mouth in [place] [address] the Medical morning Branch and 1 tablet at noon and 1 tablet in the evening. tamsulosin 3-0 Yes Take by Univ ers 0.4 mg 24 3-27 mouth ity of hr capsule 09:51: every [place] [address] evening. Medical Branch cyanocobala 3-0 Yes Take by Uni vers min, 3-27 mouth. ity of vitamin 09:51: [place] B-12, 16 Medical (VITAMIN Branch B12 ORAL) acetaminoph 2022-0 Yes Take by Uni vers en 325 mg 3-27 mouth ity of tablet 09:51: every 6 [place] [address] (six) Medical hours as Branch needed. atorvastati 3-0 Yes 40mg Take 1 Univ ers n 40 mg 3-27 tablet by ity of tablet 09:51: mouth [place] [address] every Medical evening. Branch clopidogreL 3-0 Yes 75mg Take 1 Univ ers 75 mg 3-27 tablet by ity of tablet 09:51: mouth in [place] [address] the Medical morning. Branch FUROSEMIDE 3-0 Yes Take by Univ ers ORAL 3-27 mouth ity of 09:51: daily. [place] [address] Medical Branch midodrine 3-0 Yes 10mg Take 1 Univer s 10 mg 3-27 tablet by ity of tablet 09:51: mouth in [place] [address] the Medical morning Branch and 1 tablet at noon and 1 tablet in the evening. tamsulosin 2023-0 Yes Take by Univ ers 0.4 mg 24 3-27 mouth ity of hr capsule 09:51: every [place] [address] evening. Medical Branch cyanocobala 2023-0 Yes Take by Uni vers min, 3-27 mouth. ity of vitamin 09:51: [facility] Medical (VITAMIN Branch B12 ORAL) acetaminoph 2022-0 Yes Take by Uni vers en 325 mg 3-27 mouth ity of tablet 09:51: every 6 [place] [address] (six) Medical hours as Branch needed. atorvastati 3-0 Yes 40mg Take 1 Univ ers n 40 mg 3-27 tablet by ity of tablet 09:51: mouth [place] [address] every Medical evening. Branch clopidogreL 3-0 Yes 75mg Take 1 Univ ers 75 mg 3-27 tablet by ity of tablet 09:51: mouth in [place] [address] the Medical morning. Branch FUROSEMIDE 3-0 Yes Take by Univ ers ORAL 3-27 mouth ity of 09:51: daily. [place] [address] Medical Branch midodrine 3-0 Yes 10mg Take 1 Univer s 10 mg 3-27 tablet by ity of tablet 09:51: mouth in [place] [address] the Medical morning Branch and 1 tablet at noon and 1 tablet in the evening. tamsulosin 2022-0 Yes Take by Univ ers 0.4 mg 24 3-27 mouth ity of hr capsule 09:51: every [place] [address] evening. Medical Branch cyanocobala 2022-0 Yes Take by Uni vers min, 3-27 mouth. ity of vitamin 09:51: [facility] Medical (VITAMIN Branch B12 ORAL) amiodarone 3-0 Yes [id number] 200mg Take 1 Univers 200 mg 3-27 tablet by ity of tablet 00:00: mouth in [place] [address] the Medical morning. Branch amiodarone 3-0 Yes [id number] 200mg Take 1 Univers 200 mg 3-27 tablet by ity of tablet 00:00: mouth in [place] [address] the Medical morning. Branch amiodarone 2023-0 Yes [id number] 200mg Take 1 Univers 200 mg 3-27 tablet by ity of tablet 00:00: mouth in [place] [address] the Medical morning. Branch amiodarone 2023-0 Yes [id number] 200mg Take 1 Univers 200 mg 3-27 tablet by ity of tablet 00:00: mouth in [place] [address] the Medical morning. Branch amiodarone 2023-0 Yes [id number] 200mg Take 1 Univers 200 mg 3-27 tablet by ity of tablet 00:00: mouth in [place] [address] the Medical morning. Branch amiodarone 2023-0 Yes [id number] 200mg Take 1 Univers 200 mg 3-27 tablet by ity of tablet 00:00: mouth in [place] the Medical morning. Branch amiodarone 2023-0 Yes [id number] 200mg Take 1 Univers 200 mg 3-27 tablet by ity of tablet 00:00: mouth in [place] the Medical morning. Branch amiodarone 2023-0 Yes [id number] 200mg Take 1 Univers 200 mg 3-27 tablet by ity of tablet 00:00: mouth in [place] the Medical morning. Branch amiodarone 2023-0 Yes [id number] 200mg Take 1 Univers 200 mg 3-27 tablet by ity of tablet 00:00: mouth in [place] the Medical morning. Branch amiodarone 2023-0 Yes [id number] 200mg Take 1 Univers 200 mg 3-27 tablet by ity of tablet 00:00: mouth in [place] the Medical morning. Branch amiodarone 2023-0 Yes [id number] 200mg Take 1 Univers 200 mg 3-27 tablet by ity of tablet 00:00: mouth in [place] the Medical morning. Branch amiodarone 2023-0 Yes [id number] 200mg Take 1 Univers 200 mg 3-27 tablet by ity of tablet 00:00: mouth in [place] the Medical morning. Branch amiodarone 2023-0 Yes [id number] 200mg Take 1 Univers 200 mg 3-27 tablet by ity of tablet 00:00: mouth in [place] the Medical morning. Branch amiodarone 2023-0 Yes [id number] 200mg Take 1 Univers 200 mg 3-27 tablet by ity of tablet 00:00: mouth in [place] the Medical morning. Branch amiodarone 2023-0 Yes [id number] 200mg Take 1 Univers 200 mg 3-27 tablet by ity of tablet 00:00: mouth in [place] the Medical morning. Branch amiodarone 2023-0 Yes [id number] 200mg Take 1 Univers 200 mg 3-27 tablet by ity of tablet 00:00: mouth in [place] the Medical morning. Branch amiodarone 2023-0 Yes [id number] 200mg Take 1 Univers 200 mg 3-27 tablet by ity of tablet 00:00: mouth in [place] 00 the Medical morning. Branch Vital Signs Vital Name Observation Time Observation Value Comments Source Systolic blood 2022-10-29 14:46:00 128 mm[Hg] Univer sity of pressure [facility] Branch Diastolic blood 2022-10-29 14:46:00 61 mm[Hg] Unive rsity of [facility] Heart rate 2022-10-29 14:46:00 71 /min Universi ty of [facility] Body height 2022-10-29 14:46:00 177.8 cm Universi ty of [place] [facility] [place] Body weight 2022-10-29 14:46:00 82.419 kg Universi ty of [facility] Branch BMI 2022-10-29 14:46:00 26.07 kg/m2 Universi ty of [facility] Oxygen saturation in 2022-10-29 14:46:00 97 /min University of Arterial blood by [place] [employer] pillo Pulse oximetry Branch Systolic blood 2022-10-09 14:57:00 102 mm[Hg] Univer sity of pressure [facility] Diastolic blood 2022-10-09 14:57:00 56 mm[Hg] Unive rsity of [facility] Respiratory rate 2022-10-09 14:57:00 14 /min Univ ersity of [facility] Branch Oxygen saturation in 2022-10-09 14:57:00 95 /min University of Arterial blood by [place] [employer] pillo Pulse oximetry Branch Heart rate 2022-10-09 14:31:00 75 /min Universi ty of [facility] Body temperature 2022-10-09 14:27:00 36.61 Riddhi Univ ersity of [facility] Body height 2022-10-02 14:00:00 177.8 cm Universi ty of [place] [facility] Body weight 2022-10-02 14:00:00 81.647 kg Universi ty of [place] [facility] Branch BMI 2022-10-02 14:00:00 25.83 kg/m2 Universi ty of [facility] Branch Respiratory rate 2022-10-09 14:53:00 14 /min Univ ersity of [facility] Branch Oxygen saturation in 2022-10-09 14:53:00 96 /min University of Arterial blood by [facility] pillo Pulse oximetry Branch Systolic blood 2022-10-09 14:51:00 100 mm[Hg] Univer sity of pressure [facility] Diastolic blood 2022-10-09 14:51:00 57 mm[Hg] Unive rsity of pressure [facility] Heart rate 2022-10-09 14:31:00 75 /min Universi ty of [facility] Body temperature 2022-10-09 14:27:00 36.61 Riddhi Univ ersity of [facility] Body height 2022-10-02 14:00:00 177.8 cm Universi ty of [facility] Body weight 2022-10-02 14:00:00 81.647 kg Universi ty of [facility] BMI 2022-10-02 14:00:00 25.83 kg/m2 Universi ty of [facility] Systolic blood 2022-09-26 11:30:00 132 mm[Hg] Univer sity of pressure [facility] Diastolic blood 2022-09-26 11:30:00 70 mm[Hg] Unive rsity of pressure [facility] Heart rate 2022-09-26 11:30:00 75 /min Universi ty of [facility] Body temperature 2022-09-26 11:30:00 36.17 Riddhi Univ ersity of [facility] Respiratory rate 2022-09-26 11:30:00 15 /min Univ ersity of University [facility] O[facility] saturation in 2022-09-26 11:30:00 95 /min [facility] Arterial blood by [facility] Pulse oximetry Branch Body height 2022-09-19 18:30:00 177.8 cm [facility] Body weight 2022-09-19 18:30:00 81.647 kg [facility] BMI 2022-09-19 18:30:00 25.83 kg/m2 [facility] Systolic blood 2022-09-01 14:54:00 125 mm[Hg] Univer sity of pressure [facility] Diastolic blood 2022-09-01 14:54:00 67 mm[Hg] Unive rsity of pressure [facility] Heart rate 2022-09-01 14:54:00 70 /min [facility] Body temperature 2022-09-01 14:54:00 36.5 Riddhi Univ [facility] Respiratory rate 2022-09-01 14:54:00 17 /min Univ ers[facility] Body weight 2022-09-01 14:54:[address] [facility] Oxygen saturation in 2022-09-01 14:54:00 100 /min [facility] Arterial blood by [facility] Pulse oximetry Branch Systolic blood 2022-09-26 11:30:00 132 mm[facility]Hg[facility] Diastolic blood 2022-09-26 11:30:00 70 mm[Hg] [facility] pressure [facility] Heart rate 2022-09-26 11:30:00 75 /min [facility] Body temperature 2022-09-26 11:30:00 36.17 Riddhi [facility] Respiratory rate 2022-09-26 11:30:00 15 /min [facility] Oxygen saturation in 2022-09-26 11:30:00 95 /min [facility] Arterial blood by [facility] Pulse oximetry Branch Body height 2022-09-19 18:30:[address] [facility] Body weight 2022-09-19 18:30:[address] [facility] BMI 2022-09-19 18:30:00 25.83 kg/m2 [facility] Procedures Procedure Date / Time Performing Clinician Source Performed REFERRAL- REQUEST/RESPONSE 2022-12-10 05:01:00 Doctor Charlene , [facility] Name Medical [place] ARTERIOVENOUS FISTULA 2022-10-09 12:07:00 Mirza Nassar [facility] NOTICE OF PRIVACY 2022-09-22 13:22:13 Doctor Charlene, [facility] [place] CONSENT/REFUSAL FOR 2022-09-22 13:21:53 Doctor Charlene [facility] DIAGNOSIS AND TREATMENT [facility] [place] ASSIGNMENT OF BENEFITS 2022-09-22 13:21:30 Doctor Charlene [facility] Name Medical [place] HB ECG ROUTINE & RHYTHM 2022-09-01 14:59:19 Jacque Sheridan [facility] HB ECG ROUTINE & RHYTHM 2022-09-01 14:59:19 Jacque Sheridan [facility] NOTICE OF BILLING 2022-09-01 14:38:44 Doctor Charlene, [facility] FOR MEDICARE [facility] [place] PATIENTS NO SHOW OR MISSED 2022-09-01 14:38:24 Doctor Charlene [facility] APPOINTMENT POLICY [facility] ACKNOWLEDGEMENT CONSENT/REFUSAL FOR 2022-09-01 14:38:06 Doctor Charlene [facility] DIAGNOSIS AND TREATMENT [facility] ASSIGNMENT OF BENEFITS 2022-09-01 14:37:46 Doctor Charlene, [facility] PATIENT FINANCIAL 2022-09-01 14:37:24 Doctor Charlene, [facility] POLICY [facility] AUTHORIZATION TO RELEASE 2022-09-01 05:01:00 Doctor Chang [facility] PHI TO [facility] REFERRAL- REQUEST/RESPONSE 2022-08-25 05:01:00 Doctor Chang [facility] REFERRAL- REQUEST/RESPONSE 2022-08-23 05:01:00 Doctor Chang [facility] [id number] 2022-07-28 00:00:00 ALTMU [facility] [id number] 2022-07-26 00:00:00 ALTMU [facility] [id number] 2022-07-25 00:00:00 ALTMU [facility] [id number] 2022-07-23 00:00:00 ALTMU [facility] [id number] 2022-07-21 00:00:00 ALTMU [facility] [id number] 2022-07-18 00:00:00 ALTMU [facility] [id number] 2022-07-16 00:00:00 ALTMU [facility] [id number] 2022-07-15 00:00:00 CHAAB.01 [facility] [id number] 2022-07-15 00:00:00 CHAAB.01 [facility] [id number] 2022-07-15 00:00:00 CHAAB.01 [facility] [id number] 2022-07-15 00:00:00 ALTMU [facility] [id number] 2022-07-14 00:00:00 KYRPO [facility] [id number] 2022-07-12 00:00:00 ALTMU [facility] [id number] 2022-07-08 00:00:00 CHAAB.01 [facility] [id number] 2022-07-08 00:00:00 CHAAB.01 [facility] [id number] 2022-07-08 00:00:00 CHAAB.01 [facility] [id number] 2022-07-08 00:00:00 CHAAB.01 [facility] [id number] 2022-07-08 00:00:00 CHAAB.01 [facility] [id number] 2022-07-08 00:00:00 CHAAB.01 [facility] [id number] 2022-07-08 00:00:00 CHAAB.01 [facility] [id number] 2022-07-08 00:00:00 CHAAB.01 [facility] [id number] 2022-07-08 00:00:00 CHAAB.01 [facility] [id number] 2022-07-08 00:00:00 CHAAB.01 [facility] [id number] 2022-07-07 00:00:00 ALTMU [facility] [id number] 2022-07-06 00:00:00 ALTMU [facility] [id number] 2022-07-05 00:00:00 ALTMU [facility] [id number] 2022-07-04 00:00:00 ALTMU [facility] [id number] 2022-07-03 00:00:00 ALTMU [facility] [id number] 2022-07-02 00:00:00 RAMED [facility] Encounters Start End Encounter Admission Attending Care Care Encounter Source Date/Time Date/Time Type Type Clinicians Facility Department ID 2023-01-28 2023-01-28 [facility] [id number] Univers 11:20:00 11:20:00 QIACAYETANO ity o [facility] 2022-12-25 2022-12-25 Outpatient [facility] [id number] Univers 14:45:00 14:45:00 MIRZA esequiel [facility] 2022-12-11 2022-12-11 Outpatient Taniya NASSAR, [facility] [id number] Univers 14:30:00 14:48:06 MIZRA [facility] 2022-12-10 2022-12-10 Orders Doctor KAVITHA 1.2.840.114 [id number] Univers 00:00:00 00:00:00 Only Unassigned, SACHI 350.1.13.10 it[facility] 4.2.7.2.686 Juve as [id number] [address] 2022-12-02 2022-12-02 Telephone [facility] 1.2.453.625 [id number] Univers 00:00:00 00:00:00 Qiaacejun [place] 350.1.13.10 [place] [id number] De dical N[place] [address] [place] [address] 2022-11-21 2022-11-21 Telephone [facility] 1.2.542.524 [id number] Univers 00:00:00 00:00:00 Qiangjun [place] 350.1.13.10 it[place] [id number] De dical NAL [address] [place] [address] 2022-11-21 2022-11-21 Telephone [facility] 1.2.354.412 [id number] Univers 00:00:00 00:00:00 Qiangjun [place] 350.1.13.10 ity [place] 4[place] [id number] De dical NAL [address] [place] [address] 2022-11-19 2022-11-19 Outpatient [facility] [id number] Univers 07:50:18 08:09:00 QIANGJUN ity o f [facility] 2022-10-29 2022-10-29 Office [facility] 1.2.840.114 [id number] Univers 10:00:00 10:00:00 Visit Jacque SHOEMAKER 350.1.13.10 [place] [id number] [facility]59 [facility] 2022-10-29 2022-10-29 Outpatient [facility] [id number] Univers 10:00:00 09:59:12 JACQUE karen o teresa [facility] 2022-10-23 2022-10-23 Outpatient [facility] [id number] Univers 16:45:00 13:54:08 MIRZA karen [facility] 2022-10-09 2022-10-09 [facility] [id number] Univers 06:24:00 10:11:00 MIRZA karen [facility] 2022-10-09 2022-10-09 [facility] 1.2.840.114 [id number] Univers 06:24:00 10:11:00 Encounter Mirza SHOEMAK[place] 350.1.13.10 [place]ICAL [id number] [facility] 071 [place] 2022-10-09 2022-10-09 Surgery [facility] 1.2.840.114 [id number] Univers 07:10:00 09:53:00 Mirza SHOEMAKER 350.1.13.10 i ty [place] [id number] [facility] 020 Branch 2022-09-26 2022-09-26 Anesthesia Kavitha Marley 1.2.840.1 [id number] Univers 06:43:01 06:43:01 Event 76194.1.1 ity of 3.104.2.7 [place] .3.195474 Medica l .8 [place] 2022-09-26 2022-09-26 [facility] [id number] Univers 06:25:00 06:41:00 MIRZA ity of [facility] 2022-09-26 2022-09-26 Hospital [facility], 1.2.840.3 [id number] Univers 06:25:00 06:41:00 Encounter Mirza 45520.1.1 it y of 3.104.2.7 [place] .3.875088 Medica l .8 Branch 2022-09-26 2022-09-26 Telephone [facility], 1.2.840.4 [id number] Univers 00:00:00 00:00:00 Mirza 66055.1.1 ity of 3.104.2.7 [place] .3.503521 Medica l .8 Branch 2022-09-19 2022-09-19 Travel 1.2.840.1 1.2.357.935 [id number] Univers 00:00:00 00:00:00 67385.1.1 350.1.13.10 ity of 3.104.2.7 4[place]7.3.698 [place] .3.736296 084.8 Medica l .8 Branch 2022-09-15 2022-09-15 Hospital [facility], 1.2.840.6 [id number] Univers 00:00:00 00:00:00 Encounter Adilson A 85677.1.1 ity of 3.104.2.7 [place] .3.537202 Medica l .8 Branch 2022-09-15 2022-09-15 Outpatient R GONZALEZ, [facility] [id number] Univers 00:00:00 00:00:00 ADILSON ity o f [facility] 2022-09-15 2022-09-15 Telephone [facility], 1.2.840.3 [id number] Univers 00:00:00 00:00:00 Adilson A 66988.1.1 i ty of 3.104.2.7 [place] .3.871054 Medica l .8 Branch 2022-09-15 2022-09-15 Letter [facility], 1.2.840.0 [id number] [id number] Univers 00:00:00 00:00:00 (Out) Adilson Farrell 67797.1.1 i ty of 3.104.2.7 [place] .3.215179 Medica l .8 [place] 2022-09-04 2022-09-04 Office Maday, 1.2.840.0 [id number] Univers 14:30:00 14:35:39 Visit Mirza 90649.1.1 ity of 3.104.2.7 [place] .3.869729 Medica l .8 [place] 2022-09-04 2022-09-04 Outpatient [facility] [id number] Univers 14:30:00 14:35:39 MIRZA ity of [facility] 2022-09-04 2022-09-04 Travel 1.2.840.1 1.2.501.155 [id number] Univers 00:00:00 00:00:00 20164.1.1 350.1.13.10 ity of 3.104.2.7 4[place]7.3.698 [place] .3.712343 084.8 Medica l .8 [place] 2022-09-01 2022-09-01 Office Arvin, 1.2.840.1 [id number] Univers 10:00:00 10:18:19 Visit Jacque 17557.1.1 ity of 3.104.2.7 [place] .3.800082 Medica l .8 [place] 2022-09-01 2022-09-01 Outpatient [facility] [id number] Univers 10:00:00 10:18:19 JACQUE ity o f [facility] 2022-09-01 2022-09-01 Travel 1.2.840.1 1.2.721.435 [id number] Univers 00:00:00 00:00:00 17895.1.1 350.1.13.10 ity of 3.104.2.7 4.[place].7.3.698 [place] .3.419696 084.8 Medica l .8 [place] 2022-09-01 2022-09-01 Orders Doctor 1.2.840.3 [id number] Univers 00:00:00 00:00:00 Only Unassigned, 43099.1.1 ity of [place] 3.104.2.7 [place] .3.272553 Medica l .8 Branch 2022-08-23 2022-08-23 Orders Doctor 1.2.840.3 [id number] Univers 00:00:00 00:00:00 Only Unassigned, 11479.1.1 ity of [place] 3.104.2.7 [place] .3.109971 Medica l .8 Branch 2022-07-29 2022-07-29 Outpatient CHRETIEN_F [facility] [address] [place] 00:00:00 00:00:00 0221 Commun i ty [facility] 2022-07-29 2022-07-29 [facility] [id number] [place] 00:00:00 00:00:00 0302 [facility] 2022-07-02 2022-07-28 Inpatient UR VincentSrinath [facility] [id number] [facility] 18:38:00 17:36:00 47 [facility] 2019-07-27 2019-07-27 Outpatient Jonh [facility] [id number] [facility] 07:29:00 07:29:00 _A_AH 23601 Family Practic e Results Test Description Test [...] code = CA) 8.6 mg/dL 8.0-10.5 N [id number] 07:59:00 Test Item Value Reference Range Interpretation Comments MAGNESIUM (test code = MAG) 1.91 mg/dL 1.80-2.40 N CBC W/AUTO [id number] 06:58:00 Test Item Value Reference Range Interpretation [...] (test code NO = MDIFF) BASIC METABOLIC [id number] 08:27:00 Test Item Value Reference Range Interpretation [...] 8.8 mg/dL 8.0-10.5 N CA) CBC W/AUTO [id number] 08:23:00 Test Item Value Reference Range Interpretation [...] DIFF REQUIRED (test code NO = MDIFF) [id number] 08:14:00 Test Item Value Reference Range Interpretation Comments MAGNESIUM (test code = MAG) 2.00 mg/dL 1.80-2.40 N - XR CHEST 1 [id number] 00:00:00 [facility] : 1940 Sex: M FAX: [place] [phone] [place]: St: ADM FAX: Lina Rivera [phone] FAX: Jesus Rebolledo MD [phone] Name: SHERRI ARCE [facility] : 1940 Age/S: 81/M [address] [place] [address] Unit #: [id number] Loc: G.3354 [place] [address] Phys: Lina Schwarz MD Acct: [id number] Dis Date: Status: ADM IN PHONE #: [phone] Exam Date: 07/27/2022 07 FAX #: [phone] Reason: R/O PLEURAL EFFUSION EXAMS: CPT CODE: [id number] XR CHEST 1 V 46947 PROCEDURE INFORMATION: Exam: XR Chest Exam date [...] size is within normal limits. Previous midline st ernotomy. Bones/joints: Unremarkable. IMPRESSION: Bibasilar opacities with small bilateral pleural effusions. at 0821 Reported and signed by: Herb Strong M.D. CC: Los Crawford DO; Lina Schwarz MD; Jesus Cunningham MD Technologist: Isidro Jarquin; Elaina Reeves RT(R) Trnscrd Date/Time/By: 07/27/2022 (0821) : By: Sudhir Orig Print D/T: S: 07/27/2022 (1940) PAGE 1 Signed ReportUR CREATININE CLEARANCE [id number] 11:10:00 Test Item Value Reference Range Interpretation [...] GM/24HR 1.0-1.6 L 24HR (test code = DOYW18Q) UR VOLUME (test 2050 mL code = VOL) UR COLLECTION 1440 MIN TIME (test code = COLTM) UR UREA NITROGEN [id number] 11:10:00 Test Item Value Reference Range Interpretation Comments UR UREA NITROGEN 178 mg/dL Not Estab. Performed A t: HD RANDOM (test code = [facility] Mikhvsj8364 UUN) [facility] [place] [id number] Anderson MD Ph:[phone] eviously reported result : 178 mg/dLEdited by: FARRAH on 07/26/22:621083 1110: UR UREA N IT RAN previously repo rted as: 178 mg/dL Perfo rmed At: HD [facility] [address] [place], [place] [id number] Jaclyn Anderson MD Ph:[phone] UR UREA NITROGEN 24HR 4 g/24 hr 4-16 Perfor med At: HD (test code = UUN24T) [facility] Utdpxsv1950 [facility] [place], [place] [id number] Anderson MD Ph:[phone] [id number] 04:43:00 Test Item Value Reference Range Interpretation Comments MAGNESIUM (test code = MAG) 1.76 mg/dL 1.80-2.40 L BASIC METABOLIC [id number] 04:41:00 Test Item Value Reference Range Interpretation [...] the recommended for lucretia for GFRby the [facility] on for Adults.The GFR will not calculate if th e sex is unknown or if thepatient's ag e is <18 years. CREATININE (test 3.5 mg/dL 0.6-1.3 H code = CREAT) CALCIUM (test code = 8.3 mg/dL 8.0-10.5 N CA) CBC W/AUTO [id number] 04:19:00 Test Item Value Reference Range Interpretation [...] NO = MDIFF) - XR CHEST 1 [id number] 00:00:00 [facility] : 1940 Sex: M FAX: [place] [phone] [place]: St: [facility] FAX: Lina Rivera [phone] FAX: Srinath Smith MD [phone] Name: SHERRI ARCE [facility] : 1940 Age/S: 81/M [address] [place] [address] Blvd Unit #: [id number] Loc: G.3354 [place] [address] Phys: Lina Schwarz MD Acct: [id number] Dis Date: Status: ADM IN PHONE #: [phone] Exam Date: 07/26/202245 FAX #: [phone] Reason: R/O PLEURAL EFFUSION EXAMS: CPT CODE: [id number] XR CHEST 1 V 80910 PROCEDURE INFORMATION: Exam: XR Chest Exam date [...] Srinath Kaur MD Technologist: Isidro Jarquin; Elaina Reeves, RT(R) Trnscrd Date/Time/By: 07/26/2022 (157) : By: [email or web address] Orig Print D/T: S: 07/26/2022 (002) PAGE 1 Signed [id number] 08:32:00 Test Item Value Reference Range Interpretation Comments MAGNESIUM (test code = MAG) 1.87 mg/dL 1.80-2.40 N CBC W/AUTO [id number] 07:46:00 Test Item Value Reference Range Interpretation [...] (test code NO = MDIFF) BASIC METABOLIC [id number] 07:38:00 Test Item Value Reference Range Interpretation [...] 8.7 mg/dL 8.0-10.5 N CA) BASIC METABOLIC [id number] 08:00:00 Test Item Value Reference Range Interpretation [...] code = 8.4 mg/dL 8.0-10.5 N CA) [id number] 07:59:00 Test Item Value Reference Range Interpretation Comments MAGNESIUM (test code = MAG) 1.87 mg/dL 1.80-2.40 N CBC W/AUTO [id number] 06:08:00 Test Item Value Reference Range Interpretation [...] (test code NO = MDIFF) BASIC METABOLIC [id number] 08:15:00 Test Item Value Reference Range Interpretation [...] code = 8.5 mg/dL 8.0-10.5 N CA) [id number] 08:10:00 Test Item Value Reference Range Interpretation Comments MAGNESIUM (test code = MAG) 2.00 mg/dL 1.80-2.40 N CBC W/AUTO [id number] 07:45:00 Test Item Value Reference Range Interpretation [...] DIFF REQUIRED (test code NO = MDIFF) [id number] 04:27:00 Test Item Value Reference Range Interpretation Comments MAGNESIUM (test code = MAG) 2.00 mg/dL 1.80-2.40 N BASIC METABOLIC [id number] 04:05:00 Test Item Value Reference Range Interpretation [...] 8.1 mg/dL 8.0-10.5 N CA) CBC W/AUTO [id number] 03:57:00 Test Item Value Reference Range Interpretation [...] DIFF REQUIRED (test NO code = MDIFF) [id number] 08:08:00 Test Item Value Reference Range Interpretation Comments MAGNESIUM (test code = MAG) 1.93 mg/dL 1.80-2.40 N BASIC METABOLIC [id number] 08:08:00 Test Item Value Reference Range Interpretation [...] 8.2 mg/dL 8.0-10.5 N CA) CBC W/AUTO [id number] 07:09:00 Test Item Value Reference Range Interpretation [...] (test NO code = MDIFF) BASIC METABOLIC [id number] 07:52:00 Test Item Value Reference Range Interpretation [...] the recommended for lucretia for GFRby the [facility] for Adults.The GFR will not calculate if th e sex is unknown or if thepatient's ag e is <18 years. CREATININE (test 4.0 mg/dL 0.6-1.3 H code = CREAT) CALCIUM (test code = 8.4 mg/dL 8.0-10.5 N CA) [id number] 07:49:00 Test Item Value Reference Range Interpretation Comments MAGNESIUM (test code = MAG) 2.05 mg/dL 1.80-2.40 N CBC W/AUTO [id number] 07:31:00 Test Item Value Reference Range Interpretation [...] (test NO code = MDIFF) CBC W/AUTO [id number] 07:59:00 Test Item Value Reference Range Interpretation [...] (test code NO = MDIFF) BASIC METABOLIC [id number] 07:40:00 Test Item Value Reference Range Interpretation [...] code = 8.0 mg/dL 8.0-10.5 N CA) [id number] 07:36:00 Test Item Value Reference Range Interpretation Comments MAGNESIUM (test code = MAG) 2.12 mg/dL 1.80-2.40 N - XR CHEST 1 [id number] 00:00:00 [facility] 1940 Sex: M FAX: [place] [phone] [place]: St: ADM FAX: Gianna Carmona [phone] FAX: Srinath Smith MD [phone] Name: SHERRI ARCE [facility] : 1940 Age/S: 81/M [address] [place] [address] Unit #: [id number] Loc: G.3354 [place] [address] Phys: Gianna Hoover Acct: [id number] Dis Date: Status: ADM IN PHONE #: [phone] Exam Date: 07/19/2022 [facility] FAX #: [phone] Reason: Post CV Surgery EXAMS: CPT CODE: [id number] XR CHEST 1 V 94951 PROCEDURE INFORMATION: Exam: XR Chest Exam date and time: 07/19/2022 6:33 AM Age: 81 years old Clinical indication: Other: Post cv surgery TECHNIQUE: Imaging protocol: Radiologic exam of the chest. Views: 1 view. COMPARISON: CR XR CHEST 1V 07/18/2022 5:14 AM FINDINGS: Tubes, catheters and devices: Stable position of right central catheter. Lungs: Bibasilar cons olidation has some improved aeration bilaterally. Small bilateral [...] Alonzo M.D. 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 : 1940 Sex: M FAX: Radha Ward MD [phone] [place]: St: ADM FAX: [place] [phone] FAX: Sarbjit Sherman [phone] FAX: Gianna Carmona [phone] Name: SHERRI ARCE [facility] : 1940 Age/S: 81/M [address] [place] [address] Unit #: [id number] Loc: G.3354 [place] [address] Phys: Gianna Hoover Acct: [id number] Dis Date: Status: ADM IN PHONE #: [phone] Exam Date: 07/18/202259 FAX #: [phone] Reason: Post CV Surgery EXAMS: CPT CODE: [id number] XR CHEST 1 V 62197 PROCEDURE INFORMATION: Exam: XR Chest Exam date [...] intact. IMPRESSION: 1. Stable postoperative chest. 2. Stablepulmonary opacities likely combination of atelectasis and airspace disease. 3. Stable pleural effusions. Stable loculated left pleural fluid and or thickening extending to the apex. at 0755 Reported and signed by: Babak Ratliff M.D. CC: Radha Ward MD; Los Crawford DO; Sarbjit Mcarthur MD; Gianna LIZARRAGA Technologist: Ines Marley RT(R) Trnscrd Date/Time/By: 07/18/2022 (0755) : By: ElvinL Orig Print D/T: S: 07/18/2022 (0755) PAGE 1 Signed [id number] 04:11:00 Test Item Value Reference Range Interpretation Comments MAGNESIUM (test code = MAG) 2.00 mg/dL 1.80-2.40 N BASIC METABOLIC [id number] 03:54:00 Test Item Value Reference Range Interpretation [...] the recommended for lucretia for GFRby the [facility] for Adults.The GFR will not calculate if th e sex is unknown or if thepatient's ag e is <18 years. CREATININE (test 3.5 mg/dL 0.6-1.3 H code = CREAT) CALCIUM (test code = 8.2 mg/dL 8.0-10.5 N CA) CBC W/AUTO [id number] 03:36:00 Test Item Value Reference Range Interpretation [...] code NO = MDIFF) - DUP VEIN [id number] 00:00:00 [facility] 1940 Sex: M Name: SHERRI ARCE [facility] : 1940 Age/S: 81 / M [address] [place] [address] Unit #: [id number] Loc: [place] [address] Phys: Jana Mittal MD Acct: [id number] Dis Date: Status: ADM IN PHONE #: [phone] Exam Date: 07/17/20221518 FAX #: [phone] Reason: POST OP DVT PROPHYLAXIS EXAMS: CPTCODE: [id number] DUP VEIN VARUN 17624 PROCEDURE INFORMATION: Exam: US Duplex Lower Extremity Veins, Varun ateral Exam date and time: 07/17/2022 2:25 PM [...] lower extremity veins. COMPARISON: US DUP VEIN VARUN 07/03/2022 11:32 AM FINDINGS: Right deep veins:Unremarkable. The common femoral, femoral, proximal profunda femoral [...] IMPRESSION: No evidence of deep vein thrombosis. Super ficial thrombus in the right greater saphenous vein. Complex hypoechoic area in the right inguinal region without internal vascular flow or peripheral hyperemia measuring 4.2 x 1.4 x 2.3 cm which may represent a hematoma. at 1545 Reportedand signed by: Delmer Palma M.D. CC: Radha Ward MD; Los Crawford DO; Jana Mittal MD; Sarbjit Mcarthur MD Technologist: Alyson Coleman RDMS(AB) Trnscb Date/Time: 07/17/2022 (8455) [email or web address] Orig Print D/T: S: 07/17/2022 (1590) Probe: PAGE 1 Signed Report- XR CHEST 1 [id number] 00:00:00 [facility] 1940 Sex: M FAX: Radha Ward MD [phone] [place]: St: ADM FAX: Los Crawford [phone] FAX: Fidel August [phone] FAX: Sarbjit Sherman [phone] Name: SHERRI ARCE [facility] [place] : 1940 Age/S: 81/M [address] [place] [address] Unit #: [id number] Loc: [address] [place] [address] Phys: Willi August MD Acct: [id number] Dis Date: Status: ADM IN PHONE #: [phone] Exam Date: 07/17/2022 0554 FAX #: [phone] Reason: S/P CABG X 5 EXAMS: CPT CODE: [id number] XR CHEST 1 V 17825 PROCEDURE INFORMATION: Exam: XR Chest Exam date [...] Print D/T: S: 07/17/2022 (0757) PAGE 1Signed [id number] 04:39:00 Test Item Value Reference Range Interpretation Comments MAGNESIUM (test code = MAG) 2.10 mg/dL 1.80-2.40 N BASIC METABOLIC [id number] 03:57:00 Test Item Value Reference Range Interpretation [...] 8.4 mg/dL 8.0-10.5 N CA) CBC W/AUTO [id number] 03:37:00 Test Item Value Reference Range Interpretation [...] NO = MDIFF) - XR CHEST 1 [id number] 00:00:00 [facility] : 1940 Sex: M FAX: Radha Ward MD [phone] [place]: St: FAX: Los Crawford [phone] FAX: Jana Mittal MD FAX: Sarbjit Sherman [phone] Name: SHERRI ARCE [facility] : 1940 Age/S: 81/M [address] [place] [address] Unit #: [id number] Loc: [address] [place] [address] Phys: Jana Mittal MD Acct: [id number] Date: Status: ADM IN PHONE #: [phone] Exam Date: 07/16/2022 1055 FAX #: [phone] Reason: REASSESS PNEUMOTHORAX EXAMS: CPT CODE: [id number] XR CHEST 1 V 52882 PROCEDURE INFORMATION: Exam: XR Chest Exam date [...] Jeff(R) Trnscrd Date/Time/By: 07/16/2022 (1158) : By: [email or web address] Orig Print D/T: S: 07/16/2022 (7451) PAGE 1 Signed Report- XR CHEST 1 [id number] 00:00:00 [facility] : 1940 Sex: M FAX: Radha Ward MD [phone] [place]: St: ADM FAX: Los Crawford [phone] FAX: Fidel August [phone] FAX: Sarbjit Sherman [phone] Name: SHAYLEE ARCEE [facility] : 1940 Age/S: 81/M [address] [place] [address] Unit #: [id number] Loc: [address] [place] [address] Phys: Willi August MD Acct: [id number] Dis Date: Status: ADM IN PHONE #: [phone] Exam Date: 07/16/2022 0500 FAX #: [phone] Reason: SP CABG EXAMS: CPT CODE: [id number] XR CHEST 1 V 81160 PROCEDURE INFORMATION: Exam: XR Chest Exam date and time: 07/16/2022 4:51 AM Age: 81 years old Clinical indication: Other: S/P cabg; Addit ional info: Sp cabg TECHNIQUE: Imaging protocol: Radiologic [...] left basilar chest tube. Otherwise, stable exam. Electron ically Signed by Ingrid Sesay on 07/16/2022 at 0710 Reported and signed by: Ranjan Sesay M.D. CC: Radha Ward MD; Los Crawford DO; Willi August MD; Sarbjit Mcarthur MD Technologist:Ines Marley RT(R) Trnscrd Date/Time/By: 07/16/2022 (0710) : By: [email or web address] Orig Print D/T: S: 07/16/2022 (0710) PAGE 1 Signed [id number] 18:16:00 Test Item Value Reference Range Interpretation Comments MAGNESIUM (test code = MAG) 2.39 mg/dL 1.80-2.40 N BASIC METABOLIC [id number] 17:44:00 Test Item Value Reference Range Interpretation [...] 8.5 mg/dL 8.0-10.5 N CA) BASIC METABOLIC [id number] 04:55:00 Test Item Value Reference Range Interpretation [...] code = 8.1 mg/dL 8.0-10.5 N CA) [id number] 04:30:00 Test Item Value Reference Range Interpretation Comments MAGNESIUM (test code = MAG) 2.36 mg/dL 1.80-2.40 N CBC W/AUTO [id number] 04:16:00 Test Item Value Reference Range Interpretation [...] code = MDIFF) - XR CHEST 1 [id number] 00:00:00 [facility] : 1940 Sex: M FAX: Radha Ward MD [phone] [place]: St: [facility] FAX: Los Crawford [phone] FAX: Jana Mittal MD FAX: Sarbjit Sherman [phone] Name: YAZMINSHERRI [facility] : 1940 Age/S: 81/M [address] [place] [address] Unit #: [id number] Loc: [address] [place] [address] Phys: Jana Mittal MD Acct: [id number] Dis Date: Status: ADM IN PHONE #: [phone] Exam Date: 07/15/2022 1710 FAX #: [phone] 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 : 1940 Sex: M FAX: Radha Ward MD [phone] [place]: St: [facility] FAX: Los Crawford [phone] FAX: Edwardo Flannery MD [phone] FAX: Sarbjit Sherman [phone] Name: SHERRI ARCE [facility] : 1940 Age/S: 81/M [address] [place] [address] Unit #: [id number] Loc: [address] [place] [address] Phys: Edwardo Flannery MD Acct: [id number] Dis Date: Status: ADM IN PHONE #: [phone] Exam Date: 07/15/2022 0655 FAX #: [phone] Reason: FOLLOW UP EXAMS: CPT CODE: [id number] XR CHEST 1 V 36506 PROCEDURE INFORMATION: Exam: XR Chest Exam date [...] Bibasilar airspace opacities, mildly worsened. Pleural spaces: Bilat eral small pleural effusions. No pneumothorax. Heart/Mediastinum: Stable cardiomegaly. Uncoiled and calcified aortic arch. Bones/joints: Median intact sternotomy wires. Stable. IMPRESSION: Left apicaland basilar chest tubes. No pneumothorax. Small bilateral pleural effusions. Bibasilar airspace opacities, mildly worsened. at 726 Reported and signed by: Sree Schmidt M.D. CC: Radha Ward MD; Los Crawford DO; Tera PIKE; Sarbjit Mcarthur MD Technologist: Iban Jacob RT(R) Trnscrd Date/Time/By: 07/15/2022 (726) : By: [email or web address] Orig Print D/T: S: 07/15/2022 (726) PAGE 1 Signed ReportBASIC METABOLIC [id number] 20:44:00 Test Item Value Reference Range Interpretation [...] 8.2 mg/dL 8.0-10.5 N CA) BASIC METABOLIC [id number] 11:22:00 Test Item Value Reference Range Interpretation [...] 8.4 mg/dL 8.0-10.5 N CA) BASIC METABOLIC [id number] 04:19:00 Test Item Value Reference Range Interpretation [...] the recommended for lucretia for GFRby the [facility] on for Adults.The GFR will not calculate if th e sex is unknown or if thepatient's ag e is <18 years. CREATININE (test 4.8 mg/dL 0.6-1.3 H code = CREAT) CALCIUM (test code = 8.5 mg/dL 8.0-10.5 N CA) [id number] 04:19:00 Test Item Value Reference Range Interpretation Comments MAGNESIUM (test code = MAG) 2.40 mg/dL 1.80-2.40 N CBC W/AUTO [id number] 04:05:00 Test Item Value Reference Range Interpretation [...] NO = MDIFF) - XR CHEST 1 [id number] 00:00:00 [facility] : 1940 Sex: M FAX: Radha Ward MD [phone] [place]: St: ADM FAX: Los Crawford [phone] FAX: Jana Mittal MD FAX: Sarbjit Sherman [phone] Name: SHERRI ARCE [facility] : 1940 Age/S: 81/M [address] [place] [address] Unit #: [id number] Loc: [address] [address] Phys: Jana Mittal MD Acct: [id number] Dis Date: Status: ADM IN PHONE #: [phone] Exam Date: 07/14/2022 141 FAX #: [phone] Reason: CHEST TUBE PLACEMENT EXAMS: CPT CODE: [id number] XR CHEST 1 V 98674 PROCEDURE INFORMATION: Exam: XR Chest Exam date [...] pneumothorax now small. Otherwise, stable exam. at 1501 Reported and signed by: Ranjan Sesay M.D. CC: Radha Ward MD; Los Crawford DO; Jana Mittal MD; Sarbjit Mcarthur MD Technologist: Eloisa Cali RT(R) Trnscrd D ate/Time/By: 07/14/2022 (1507) : By: [email or web address] Orig Print D/T: S: 07/14/2022 (8265) PAGE 1 Signed Report- CT GUID [facility] (Biopsy/Asp)2022-07-14 00:00:00 [facility] 1940 Sex: M Name: SHERRI ARCE [facility] : 1940 Age/S: 81 / M [address] [place] [address] Bl Unit #: [id number] Loc: [place] [address] Phys: Gianna Hoover Acct: [id number] Dis Date: Status: ADM IN PHONE #: [phone] Exam Date: 07/14/2022 1509 FAX #: [phone] Reason: Left Pneumothorax- pigtail cath placement EXAMS: CPT CODE: [id number] CT GUID [facility] (Biopsy/Asp) [address] PROCEDURE INFORMATION: Exam: IR Thoracentesis, Aspiration With Image Guidance Exam date and time: 07/14/2022 11:44 AM Age: 81 years old Clinical indication: Other: Left pneumothorax- pigtail cath placement TECHNIQUE: Imaging protocol:Radiology Procedure. Thoracentesis, needle or catheter, aspiration of the pleural space with imagingguidance. CT guidance was provided. Radiation optimization: All CT scans at this facility use at least one of these dose optimization techniques: automated exposure control; mA and/or kV adjustment perpatient size (includes targeted exams where dose is [...] independent trained observer. The nurse pushed medications atmight erection and monitored patient's level of consciousness and physiological status throughout. The record is permanently stored in the hospital information system. Medications for pain control: 25 mcg of IV Fentanyl. Procedure summary: After written consent was obtained the patient was placed supine on the CT table and the left apical pneumothorax was then localized under CT guidance. The skin was then prepped and draped in the PAGE 1 Signed Report (CONTINUED) Name: SHERRI ARCE [facility] : 1940 Age/S: 81 / M [address] [place] [address] Unit #: [id number] Loc: [place] [address] Phys: Gianna Hoover Acct: [id number] Dis Date: Status: ADM IN PHONE #: [phone] Exam Date: 07/14/2022 1509 FAX #: [phone] Reason: Left Pneumothorax- pigtail cath placement EXAMS: CPT CODE: [id number] CT GUID [facility] (Biopsy/Asp) 95144 (Continued) usual sterile fashion and satisfactory anesthesia was obtained with 1% local lidocaine and IV fentanyl. An 18 gauge Chiba needle was then introduced into the pneumothorax through a left anterior superior approach and good position was confirmed with repeat CT imaging and aspiration of air. A wire was then advanced into the left pleural cavity andthe tract was dilated to 8 Belarusian. An 8.5 Belarusian pigtail catheter was then placed. The catheter was then connected to a pleura vac which was connected to low continuous wall suction. Repeat CT imaging demonstrated resolution of the pneumothorax. The catheter was then secured at the skin exit site witha 2 0 silk suture. A clean dressing was then applied. The patient tolerated the procedure well. Complications: No complications. IMPRESSION: CT- guided left chest tube placement. at 1225 Reported and signed by: Hansa Block M.D. CC: Radha Ward MD; Los Crawford DO; Sarbjit Mcarthur MD; Gianna LIZARRAGA Technologist:RT Jalyn(R)(CT) CTDI: DLP: Trnscb Date/Time: 07/14/2022 (1225) [email or web address] Orig Print D/T: S: 07/14/2022 (7133) PAGE 2 Signed Report- XR CHEST 1 [id number] 00:00:00 [facility] : 1940 Sex: M FAX: Radha Ward MD [phone] [place]: St: [facility] FAX: Los Crawford [phone] FAX: Ana Toribio [phone] FAX: Sarbjit Sherman [phone] Name: SHERRI ARCE [facility] [place] : 1940 Age/S: 81/M [address] [place] [address] Unit #: [id number] Loc: [address] [place] [address] Phys: Rosalind Puentes NP Acct: [id number] Dis Date: Status: ADM IN PHONE #: [phone] Exam Date: 07/14/2022626 FAX #: [phone] Reason: Cardiac Surgery Post Op EXAMS: CPT CODE: [id number] XR CHEST 1 V 84121 PROCEDURE INFORMATION: Exam: XR Chest Exam date and time: 07/14/2022 6:26 AM Age: 81 years old Clinical indication: Other: Cardiac surgery post op TECHNIQUE: Imaging protocol: Radiologic exam of the chest. Views: 1 view. COMPARISON: CR XR CHEST 1V 07/13/2022 6:51 AM FINDINGS: Tubes, catheters and devices: Left chest tube in place. Lungs: Persistent bibasilar airspace disease. Pleural spaces: Moderate left apicalpneumothorax , similar to prior radiograph. Unchanged small bilateral pleural effusions. Heart/Mediastinum: Unchanged prominence of the cardiomediastinal silhouette. Bones/joints: Median sternotomy changes. IMPRESSION: 1. Moderate left apical pneumothorax, similar to prior radiograph. Left chest tubein place. 2. Unchanged small bilateral pleural effusions with bibasilar airspace disease. at 0915 Reported and signed by: Sheldon Kenney M.D.CC: Radha Ward MD; Los Crawford DO; Rosalind Toribio NP; Sarbjit Mcarthur MD Technologist: Elton Pradhan Trnscrd Date/Time/By: 07/14/2022 (15) : By: [email or web address] Orig Print D/T: S: 07/14/2022 (914) PAGE 1 [facility] 2022-07-13 10:47:00 Test Item Value Reference Range Interpretation Comments POC ARTERIAL BLOOD GAS PH (test 7.388 7.35-7.45 N code = POCPHA) POC ARTERIAL BLOOD GAS PCO2 (test 31.6 mmHg 35.0-45 L code = KTJFZV0W) POC TCO2 ARTERIAL (test code = 20.0 POCTCO2) POC ARTERIAL BLOOD GAS PO2 (test 80.5 mmHg 80-100.0 N code = FJCTJ4N) POC HCO3 ARTERIAL (test code = 19.0 MMOL/L 22.0-26.0 L YOJPVZ0T) POC BASE EXCESS (test code = -5.9 MMOL/L -4.0-4.0 L POCBEA) POC O2 SATURATION (test code = 95.9 % 90-100 N POCO2S) ABG DELIVERY (test code = JH) Room Air BASIC METABOLIC [id number] 10:47:00 Test Item Value Reference Range Interpretation [...] = POCGLU) 137 MG/DL 70-110 H HEMOGLOBIN [id number] 10:47:00 Test Item Value Reference Range Interpretation Comments HEMOGLOBIN ABG (test code = HGB/ABG) 9.0 G/DL 12.5-16.9 L [id number] 10:47:00 Test Item Value Reference Range Interpretation Comments HEMATOCRIT (test code = HCT/ABG) 26 % 37.5-50.7 L POC LACTIC [id number] 10:47:00 Test Item Value Reference Range Interpretation Comments POC LACTIC ACID (test code = 1.8 mmol/l 0.9-1.7 H POCLAC) POC ARTERIAL BLOOD [id number] 03:26:00 Test Item Value Reference Range Interpretation Comments POC ARTERIAL BLOOD GAS PH (test 7.415 7.35-7.45 N code = POCPHA) POC ARTERIAL BLOOD GAS PCO2 35.4 mmHg 35.0-45 N (test code = XWRWCY6D) POC TCO2 ARTERIAL (test code = 23.8 POCTCO2) POC ARTERIAL BLOOD GAS PO2 (test 68.5 mmHg 80-100.0 L code = DMWMR0S) POC HCO3 ARTERIAL (test code = 22.7 MMOL/L 22.0-26.0 N HQKHAY2T) POC BASE EXCESS (test code = -1.9 MMOL/L -4.0-4.0 N POCBEA) POC O2 SATURATION (test code = 93.8 % 90-100 N POCO2S) FIO2 (test code = FIO2A) 32 % PaO2/FiO2 (test code = KRV4DCA4) 214.06 mm/Hg ABG DELIVERY (test code = JH) Cannula ABG SITE (test code = SITEA) Art Line BASIC METABOLIC [id number] 03:26:00 Test Item Value Reference Range Interpretation [...] = POCGLU) 84 MG/DL 70-110 N HEMOGLOBIN [id number] 03:26:00 Test Item Value Reference Range Interpretation Comments HEMOGLOBIN ABG (test code = HGB/ABG) 7.9 G/DL 12.5-16.9 L [id number] 03:26:00 Test Item Value Reference Range Interpretation Comments HEMATOCRIT (test code = HCT/ABG) 23 % 37.5-50.7 L POC LACTIC [id number] 03:26:00 Test Item Value Reference Range Interpretation Comments POC LACTIC ACID (test code = 0.6 mmol/l 0.9-1.7 L POCLAC) BASIC METABOLIC [id number] 03:25:00 Test Item Value Reference Range Interpretation [...] the recommended for lucretia for GFRby the [facility] on for Adults.The GFR will not calculate if th e sex is unknown or if thepatient's ag e is <18 years. CREATININE (test 3.9 mg/dL 0.6-1.3 H code = CREAT) CALCIUM (test code = 8.0 mg/dL 8.0-10.5 N CA) [id number] 03:25:00 Test Item Value Reference Range Interpretation Comments MAGNESIUM (test code = MAG) 2.29 mg/dL 1.80-2.40 N CBC W/AUTO [id number] 03:12:00 Test Item Value Reference Range Interpretation [...] code = MDIFF) - XR CHEST 1 [id number] 00:00:00 [facility] : 1940 Sex: M FAX: Radha Ward MD [phone] [place]: St: ADM FAX: Los Crawford [phone] FAX: Ana Toribio [phone] FAX: Sarbjit Sherman [phone] Name: SHERRI ARCE [facility] [place] : 1940 Age/S: 81/M [address] [place] [address] Unit #: [id number] Loc: [address] [place] [address] Phys: Rosalind Puentes REFORMATORY ATTENDANT Acct: [id number] Dis Date: Status: ADM IN PHONE #: [phone] Exam Date: 07/13/2022 0652 FAX #:[phone] Reason: Cardiac Surgery Post Op Report Has Been Amended EXAMS: CPT CODE: [id number] XR CHEST 1 V 85691 Addendum - 07/13/2022 SIGNED 07/13/2022 ADDENDUM: [id number] RAD/CXR1 This is an addendum to the previously dictated report to document communication. Findings were discussed with Nurse Espinal at 07/13/2022 9:18 AM INVERTEBRATE PALEONTOLOGIST. at 0919 Reported and signed by: Delmer [...] measuring approximately 4 cm, approximately 30%. Otherwise, nosignificant change. PAGE 1 Signed Report (CONTINUED) FAX: Radha Ward MD [phone] [place]: St: ADM FAX: Los Crawford [phone] FAX: Ana Toribio [phone] FAX: Sarbjit Sherman [phone] Name: SHERRI ARCE [facility] : 1940 Age/S: 81/M [address] [place] [address] Unit #: [id number] Loc: [address] [place] [address] Phys: Rosalind Puentes REFORMATORY ATTENDANT Acct: [id number] Dis Date: Status: ADM IN PHONE #: [phone] Exam Date: 07/13/2022 0652 FAX #: [phone] Reason: Cardiac SurgeryPost Op Report Has Been Amended EXAMS: CPT CODE: [id number] XR CHEST 1 V 46181 (Continued) at 0915 Reported and signed by: Delmer Palma M.D. CC: Radha Ward MD; Los Crawford DO; Rosalind Toribio REFORMATORY ATTENDANT; Sarbjit Mcarthur MD Technologist: Isidro Jarquin; Elaina Reeves, RT(R) Trnscrd Date/Time/By: 07/13/2022 (914) : By: [email or web address] Orig Print D/T: S: 07/13/2022 (914) PAGE 2 Signed Report- US RETRO [id number] 00:00:00 [facility] 1940 Sex: M Name: SHERRI ARCE [facility] : 1940 Age/S: 81 / M [address] [place] [address] Unit #: [id number] Loc: [place] [address] Phys: Evelina Plaza MD Acct: [id number] Dis Date: Status: ADM IN PHONE #: [phone] Exam Date: 07/12/2022 1624 FAX #: [phone] Reason: hydronephrosis EXAMS: CPT CODE: [id number] US RETRO LTD 36047 PROCEDURE INFORMATION: Exam: US Retroperitoneal Limited. Exam date and time: 07/12/2022 4:03 PM Age: 81 years old Clinical indication: Condition or disease; Kidney or ureter condition; Hydronephrosis TECHNIQUE: Imaging protocol: Real-time ultrasound of the retroperitoneum with image documentation. COMPARISON: US RETRPERITONEAL COM 07/03/2022 11:22 AM FINDINGS: Right kidney: Mil dly echogenic renal cortex. No stones. No hydronephrosis. [...] (0651) Humberto.AB53 PAGE 1 Signed ReportBASIC METABOLIC [id number] 12:25:00 Test Item Value Reference Range Interpretation [...] code = 8.2 mg/dL 8.0-10.5 N CA) [id number] 12:25:00 Test Item Value Reference Range Interpretation Comments MAGNESIUM (test code = MAG) 2.03 mg/dL 1.80-2.40 CALCIUM [id number] 12:25:00 Test Item Value Reference Range Interpretation Comments CALCIUM IONIZED (test code = ARVIN) 1.12 MMOL/L 1.09-1.30 N CBC W/AUTO [id number] 12:07:00 Test Item Value Reference Range Interpretation [...] (test NO code = MDIFF) BASIC METABOLIC [id number] 04:50:00 Test Item Value Reference Range Interpretation [...] code = 8.6 mg/dL 8.0-10.5 N CA) [id number] 04:50:00 Test Item Value Reference Range Interpretation Comments MAGNESIUM (test code = MAG) 2.69 mg/dL 1.80-2.40 H CBC W/AUTO [id number] 04:33:00 Test Item Value Reference Range Interpretation [...] NO code = MDIFF) POC ARTERIAL BLOOD [id number] 04:15:00 Test Item Value Reference Range Interpretation Comments POC ARTERIAL BLOOD GAS PH (test 7.371 7.35-7.45 N code = POCPHA) POC ARTERIAL BLOOD GAS PCO2 (test 34.5 mmHg 35.0-45 L code = OKJLDZ0X) POC TCO2 ARTERIAL (test code = 21.1 POCTCO2) POC ARTERIAL BLOOD GAS PO2 (test 58.5 mmHg 80-100.0 L code = SLQUH0U) POC HCO3 ARTERIAL (test code = 20.0 MMOL/L 22.0-26.0 L OODESJ6N) POC BASE EXCESS (test code = -5.3 MMOL/L -4.0-4.0 L POCBEA) POC O2 SATURATION (test code = 89.5 % 90-100 L POCO2S) ABG DELIVERY (test code = JH) HFNC ABG SITE (test code = SITEA) Art Line BASIC METABOLIC [id number] 04:15:00 Test Item Value Reference Range Interpretation [...] = POCGLU) 130 MG/DL 70-110 H HEMOGLOBIN [id number] 04:15:00 Test Item Value Reference Range Interpretation Comments HEMOGLOBIN ABG (test code = HGB/ABG) 9.2 G/DL 12.5-16.9 L [id number] 04:15:00 Test Item Value Reference Range Interpretation Comments HEMATOCRIT (test code = HCT/ABG) 27 % 37.5-50.7 L POC LACTIC [id number] 04:15:00 Test Item Value Reference Range Interpretation Comments POC LACTIC ACID (test code = 0.6 mmol/l 0.9-1.7 L POCLAC) - XR CHEST 1 [id number] 00:00:00 [facility] 1940 Sex: M FAX: Radha Ward MD [phone] [place]: St: [facility] FAX: Los Crawford [phone] FAX: Ana Toribio [phone] Name: SHERRI ARCE [facility] : 1940 Age/S: 81/M [address] [place] [address] Blvd Unit #: [id number] Loc: G.[address] [place] [address] Phys: Rosalind Puentes REFORMATORY ATTENDANT Acct: [id number] Dis Date: Status: ADM IN PHONE #: [phone] Exam Date: 07/12/2022706 FAX #: [phone] Reason: Cardiac Surgery Post Op EXAMS: CPT CODE: [id number] XR CHEST 1 V 64400 PROCEDURE INFORMATION: Exam: XR Chest Exam date and time: 07/12/2022 5:48 AM Age: 81 years old Clinical indication: Other: Cardiac surgery post op TECHNIQUE: Imaging protocol: Radiologic exam of the chest. Views: 1 view. COMPARISON: CR XR CHEST 1V 07/11/2022 5:08 AM FINDINGS: Tubes, catheters and devices: [place] catheter has been removed. Left chest tube is demonstrated. Lungs: Hbav-cg-nndkhcmp bilateral perihilar and basilar interstitial lung opacities, suggesting pulmonary edema versus infiltrates. The peripheral lungs are otherwise clear. Bilateral pulmonary opacities are most prominent within the basilar lungs. Improvement of lung opacities is demonstrated. Pleural spaces: Small volume bilateral pleural effusions. No pneumothorax identified. Heart/Mediastinum: Cardiac silhouette appears moderate to severely enlarged. Bones/joints: Diffuse ly decreased bone density. Moderate to severe generalized bony degenerative changes. Sternotomy wires, hardware is demonstrated. Soft tissues: Right neck sheath tip is positioned over the upper chest region. IMPRESSION: 1. Small bilateral pleural effusions. 2. Moderate to severe enlarged cardiac silhouette. 3. Gugp-mt-ymvzxbcd pulmonary edema versus infiltrates. Improvement. at 0736 Reported and signed by: Manuel Vega M.D. CC: Radha Ward MD; [place] DO; Rosalind Toribio NP Technologist: Isidro Jarquin; Elaina Reeves, (R) Trnscrd Date/Time/By: 07/12/2022 (0736) : By: [email or web address] Orig Print D/T: S: 07/12/2022 (0702) PAGE 1 Signed ReportBASIC METABOLIC PANEL 2022-07-11 [...] = 8.6 mg/dL 8.0-10.5 N CA) CALCIUM [id number] 23:16:00 Test Item Value Reference Range Interpretation Comments CALCIUM IONIZED (test code = ARVIN) 1.09 MMOL/L 1.09-1.30 N HGB [id number] 22:43:00 Test Item Value Reference Range Interpretation Comments HEMOGLOBIN (test code = HGB) 8.1 g/dL 12.5-16.9 L HEMATOCRIT (test code = HCT) 25.4 % 37.5-50.7 L GLUCOSE [id number] 20:41:00 Test Item Value Reference Range Interpretation Comments GLUCOSE BEDSIDE (test 122 MG/DL 70-110 H Perfor med by certified code = GLUBED) 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[facility] BASIC METABOLIC [id number] 16:09:00 Test Item Value Reference Range Interpretation [...] code = 8.9 mg/dL 8.0-10.5 N CA) [id number] 16:09:00 Test Item Value Reference Range Interpretation Comments PHOSPHOROUS (test code = PHOS) 3.9 MG/DL 2.5-4.9 N [id number] 16:09:00 Test Item Value Reference Range Interpretation Comments MAGNESIUM (test code = MAG) 2.72 mg/dL 1.80-2.40 H CALCIUM [id number] 16:09:00 Test Item Value Reference Range Interpretation Comments CALCIUM IONIZED (test code = ARVIN) 1.17 MMOL/L 1.09-1.30 N POC ARTERIAL BLOOD [id number] 15:54:00 Test Item Value Reference Range Interpretation Comments POC ARTERIAL BLOOD GAS PH (test 7.347 7.35-7.45 L code = POCPHA) POC ARTERIAL BLOOD GAS PCO2 (test 37.9 mmHg 35.0-45 N code = EAQFLJ4C) POC TCO2 ARTERIAL (test code = 22.0 POCTCO2) POC ARTERIAL BLOOD GAS PO2 (test 80.5 mmHg 80-100.0 N code = XHZME9K) POC HCO3 ARTERIAL (test code = 20.8 MMOL/L 22.0-26.0 L CHFUXZ7S) POC BASE EXCESS (test code = -4.8 MMOL/L -4.0-4.0 L POCBEA) POC O2 SATURATION (test code = 95.2 % 90-100 N POCO2S) ABG DELIVERY (test code = JH) Cannula ABG TEMPERATURE (test code = 98.6 F TEMPA) ABG SITE (test code = SITEA) Art Line MARYLU'S TEST (test code = ALLENS) N/A BASIC METABOLIC [id number] 15:54:00 Test Item Value Reference Range Interpretation [...] = POCGLU) 159 MG/DL 70-110 H HEMOGLOBIN [id number] 15:54:00 Test Item Value Reference Range Interpretation Comments HEMOGLOBIN ABG (test code = HGB/ABG) 9.3 G/DL 12.5-16.9 L [id number] 15:54:00 Test Item Value Reference Range Interpretation Comments HEMATOCRIT (test code = HCT/ABG) 27 % 37.5-50.7 L POC LACTIC [id number] 15:54:00 Test Item Value Reference Range Interpretation Comments POC LACTIC ACID (test code = 1.1 mmol/l 0.9-1.7 N POCLAC) POC ARTERIAL BLOOD [id number] 09:52:00 Test Item Value Reference Range Interpretation Comments POC ARTERIAL BLOOD GAS PH (test 7.381 7.35-7.45 N code = POCPHA) POC ARTERIAL BLOOD GAS PCO2 (test 36.5 mmHg 35.0-45 N code = GJYRTL6O) POC TCO2 ARTERIAL (test code = 22.8 POCTCO2) POC ARTERIAL BLOOD GAS PO2 (test 71.5 mmHg 80-100.0 L code = EHCGJ6P) POC HCO3 ARTERIAL (test code = 21.7 MMOL/L 22.0-26.0 L RMFEUK5K) POC BASE EXCESS (test code = -3.4 MMOL/L -4.0-4.0 N POCBEA) POC O2 SATURATION (test code = 93.9 % 90-100 N POCO2S) ABG DELIVERY (test code = JH) Cannula ABG TEMPERATURE (test code = 98.8 F TEMPA) ABG SITE (test code = SITEA) Art Line MARYLU'S TEST (test code = ALLENS) N/A BASIC METABOLIC [id number] 09:52:00 Test Item Value Reference Range Interpretation [...] = POCGLU) 122 MG/DL 70-110 H HEMOGLOBIN [id number] 09:52:00 Test Item Value Reference Range Interpretation Comments HEMOGLOBIN ABG (test code = HGB/ABG) 9.2 G/DL 12.5-16.9 L [id number] 09:52:00 Test Item Value Reference Range Interpretation Comments HEMATOCRIT (test code = HCT/ABG) 27 % 37.5-50.7 L POC LACTIC [id number] 09:52:00 Test Item Value Reference Range Interpretation Comments POC LACTIC ACID (test code = 0.5 mmol/l 0.9-1.7 L POCLAC) GLUCOSE [id number] 07:55:00 Test Item Value Reference Range Interpretation Comments GLUCOSE BEDSIDE (test 117 MG/DL 70-110 H Perfor med by certified code = GLUBED) 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[facility] BASIC METABOLIC [id number] 04:32:00 Test Item Value Reference Range Interpretation [...] = POCGLU) 102 MG/DL 70-110 N HEMOGLOBIN [id number] 04:32:00 Test Item Value Reference Range Interpretation Comments HEMOGLOBIN ABG (test code = 10.5 G/DL 12.5-16.9 L HGB/ABG) [id number] 04:32:00 Test Item Value Reference Range Interpretation Comments HEMATOCRIT (test code = HCT/ABG) 31 % 37.5-50.7 L POC LACTIC [id number] 04:32:00 Test Item Value Reference Range Interpretation Comments POC LACTIC ACID (test code = 0.4 mmol/l 0.9-1.7 L POCLAC) POC VENOUS BLOOD [id number] 04:32:00 Test Item Value Reference Range Interpretation Comments POC VENOUS BLOOD GAS PH (test 7.369 7.33-7.45 N code = POCPHV) POC VENOUS BLOOD GAS PCO2 (test 42.1 mmHg 43-47 L code = XISSJD2S) POC VENOUS BLOOD GAS PO2 (test 30.2 mmHG 10-50 N code = NEJIV6S) POC TCO2 VENOUS (test code = 25.6 UQQERY2L) POC HCO3 VENOUS (test code = 24.3 MMOL/L 22-27 N PKRJIS7D) POC BASE EXCESS VENOUS (test code -1.0 MMOL/L -4.0-4.0 N = POCBEV) POC O2 SATURATION VENOUS (test 55.6 % 60-80 L code = BJPD2MJ) VENOUS BLOOD GAS DELIVERY (test HFNC code = DELV) VENOUS BLOOD GAS SITE (test code [place] = SITEV) [id number] 03:34:00 Test Item Value Reference Range Interpretation Comments MAGNESIUM (test code = MAG) 2.89 mg/dL 1.80-2.40 H BASIC METABOLIC [id number] 03:14:00 Test Item Value Reference Range Interpretation [...] the recommended for lucretia for GFRby the [facility] for Adults.The GFR will not calculate if th e sex is unknown or if thepatient's ag e is <18 years. CREATININE (test 3.2 mg/dL 0.6-1.3 H code = CREAT) CALCIUM (test code = 9.0 mg/dL 8.0-10.5 N CA) COMMENTS: POD #1HEPATIC FUNCTION [id number] 03:14:00 Test Item Value Reference Range Interpretation [...] code = ALKP) COMMENTS: POD #1CBC W/AUTO [id number] 03:07:00 Test Item Value Reference Range Interpretation [...] NO code = MDIFF) POC ARTERIAL BLOOD [id number] 02:32:00 Test Item Value Reference Range Interpretation Comments POC ARTERIAL BLOOD GAS PH (test 7.375 7.35-7.45 N code = POCPHA) POC ARTERIAL BLOOD GAS PCO2 (test 40.6 mmHg 35.0-45 N code = ELTEVI3A) POC TCO2 ARTERIAL (test code = 25.0 POCTCO2) POC ARTERIAL BLOOD GAS PO2 (test 64.8 mmHg 80-100.0 L code = YHQLP4Z) POC HCO3 ARTERIAL (test code = 23.8 MMOL/L 22.0-26.0 N ALEZVG5I) POC BASE EXCESS (test code = -1.4 MMOL/L -4.0-4.0 N POCBEA) POC O2 SATURATION (test code = 91.8 % 90-100 N POCO2S) ABG DELIVERY (test code = JH) NC ABG SITE (test code = SITEA) Art Line BASIC METABOLIC [id number] 02:32:00 Test Item Value Reference Range Interpretation [...] = POCGLU) 109 MG/DL 70-110 N HEMOGLOBIN [id number] 02:32:00 Test Item Value Reference Range Interpretation Comments HEMOGLOBIN ABG (test code = HGB/ABG) 9.3 G/DL 12.5-16.9 L [id number] 02:32:00 Test Item Value Reference Range Interpretation Comments HEMATOCRIT (test code = HCT/ABG) 27 % 37.5-50.7 L POC LACTIC [id number] 02:32:00 Test Item Value Reference Range Interpretation Comments POC LACTIC ACID (test code = 0.5 mmol/l 0.9-1.7 L POCLAC) - XR CHEST 1 [id number] 00:00:00 [facility] 1940 Sex: M FAX: Radha Ward MD [phone] [place]: St: [facility] FAX: [place] [phone] FAX: Ana Toribio [phone] Name: SHERRI ARCE [facility] : 1940 Age/S: 81/M [address] Unit #: [id number] Loc: G.[address] [place] [address] Phys: Rosalind Puentes 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 Views: 1 view. COMPARISON: CR XR CHEST 1V 07/10/2022 5:24 AM FINDINGS: Tubes, catheters and devices: [place]-Al[place] catheter is present and enters right neck sheath. The [place] catheter tip overlies the expected pulmonary outflow tract region. Left chest tube is demonstrated. Lungs: Moderate to severe degree diffuse, bilateral perihilar and basilar inte rstitial alveolar pulmonary edema versus infiltrates, pneumonia within the lungs. Progression of right-sided lower lung opacities is demonstrated. Left- sided lung opacities appear stable. Pleural spaces: Small volume bilateral pleural effusions. No pneumothorax identified. Heart/Mediastinum: Cardiac s ilhouette appears moderately enlarged. Vasculature: Tortuous and ectatic aorta is demonstrated. Bkla-lt-nuuusayh atherosclerotic calcification demonstrated within the aorta. Bones/joints: [...] within right lower chest. 4. Degenerative and postsurgi pillo changes are demonstrated, as described above. PAGE 1 Signed Report (CONTINUED) FAX: Radha Ward [phone] [place]: St: ADM FAX: [place] [phone] FAX: Ana Toribio [phone] Name: SHERRI ARCE [facility] : 1940 Age/S: 81/M [address] [place] [address] Unit #: [id number] Loc: [address] [place] [address] Phys: Rosalind Puentes NP Acct: [id number] Dis Date: Status: ADM IN PHONE #: [phone] Exam Date: 07/11/2022553 FAX #: [phone] Reason: Cardiac Surgery Post Op EXAMS: CPT CODE: [id number] XR CHEST 1 V 65421 (Continued) at 3085 Reported and signed by: Manuel Vega M.D. CC: Dominique PIKE; [place] DO; Rosalind Toribio NP Technologist: RT Britta(Taniya) Trnscrd Date/Time/By: 07/11/2022 (3851) : By: [email or web address] Orig Print D/T: S: 07/11/2022 (6514) PAGE 2 Signed ReportBASIC METABOLIC PANEL 2022-07-10 [...] code = 8.6 mg/dL 8.0-10.5 N CA) [id number] 21:21:00 Test Item Value Reference Range Interpretation Comments MAGNESIUM (test code = MAG) 2.63 mg/dL 1.80-2.40 H CALCIUM [id number] 21:21:00 Test Item Value Reference Range Interpretation Comments CALCIUM IONIZED (test code = ARVIN) 1.14 MMOL/L 1.09-1.30 N GLUCOSE [id number] 16:38:00 Test Item Value Reference Range Interpretation Comments GLUCOSE BEDSIDE (test 126 MG/DL 70-[address] 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 CREATININE (test 2.6 mg/dL 0.6-1.3 H code = CREAT) CALCIUM (test code = 8.8 mg/dL 8.0-10.5 N CA) [id number] 15:12:00 Test Item Value Reference Range Interpretation Comments PHOSPHOROUS (test code = PHOS) 3.2 MG/DL 2.5-4.9 N [id number] 15:12:00 Test Item Value Reference Range Interpretation Comments MAGNESIUM (test code = MAG) 2.39 mg/dL 1.80-2.40 N CALCIUM [id number] 15:12:00 Test Item Value Reference Range Interpretation Comments CALCIUM IONIZED (test code = ARVIN) 1.19 MMOL/L 1.09-1.30 N CBC W/AUTO [id number] 15:00:00 Test Item Value Reference Range Interpretation [...] DIFF REQUIRED (test NO code = MDIFF) [id number] 14:54:00 Test Item Value Reference Range Interpretation Comments SURGICAL (test code = SR) -----RUN DATE: 07/10/22 [place] - LAB PAGE 1 RUN TIME: 1454 Specimen Inquiry RUN USER: INTERFACE -----PATIENT: SHERRI ARCE LOC: A[facility] U #: [id number] AGE/SX: 81/M [place] [facility] [place] DR: Radha Ward MD : 44 BED: 1 DIS: STATUS: ADM IN TLOC: ----- SPEC #: [id number] RECD: 07/09/22 STATUS: ASTRID LUIS #: [id number] AARON: 07/08/22- SUBM DR: Lina Schwarz MD ENTERED: 07/09/22 SP TYPE: SURGICAL OTHR DR: Self Referred Liset Ennis MD, Soubhi MD Burnette, Christopher A DO Chaugle, Abdul Hannan MD Raslan, Saleem MDORDERED: 48985, ANATOMIC SPEC COPIES TO: Self Referred Liset Ennis MD [address] [place] [address] Evelina Plaza MD [address] [place] [address] [place] [address] [facility] [address] [place] [address] Lina Schwarz MD [address] [place] [address]. [address] [place], [place] [address] Mario Briseno MD [address] [facility] [address] [place] [address] PROCEDURES: 54472 (07/10/22-1433) TISSUES: A. ATRIUM - LEFT ATRIAL APPENDAGE CONTINUED ON NEXT PAGE -----RUN DATE: 07/10/22 [place] [facility] - LAB PAGE 2 RUN TIME: 1454 Specimen Inquiry RUN USER: INTERFACE -----SPEC #: [id number] PATIENT: SHERRI ARCE #[id number] (Continued) CLINICAL HISTORY SAME FINAL DIAGNOSIS Heart, left atrial appendage, wedge biopsy: Myocardium with ischemic change; serosalinflammation, consistent with pericarditis. GROSS DESCRIPTION Received in formalin labeled "left atrial appendage "is a wedge biopsy of heart, 3.4 x 0.2x 1.4 cm, sectioned and entirely submitted (A)-(B). 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 CREATININE (test 2.5 mg/dL 0.6-1.3 H code = CREAT) CALCIUM (test code = 8.9 mg/dL 8.0-10.5 N CA) [id number] 10:44:00 Test Item Value Reference Range Interpretation Comments PHOSPHOROUS (test code = PHOS) 3.7 MG/DL 2.5-4.9 N [id number] 10:44:00 Test Item Value Reference Range Interpretation Comments MAGNESIUM (test code = MAG) 2.28 mg/dL 1.80-2.40 N CALCIUM [id number] 10:44:00 Test Item Value Reference Range Interpretation Comments CALCIUM IONIZED (test code = ARVIN) 1.21 MMOL/L 1.09-1.30 N GLUCOSE [id number] 10:23:00 Test Item Value Reference Range Interpretation Comments GLUCOSE BEDSIDE (test 111 MG/DL 70-110 H Perfor med by certified code = GLUBED) 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[facility] POC ARTERIAL BLOOD [id number] 10:12:00 Test Item Value Reference Range Interpretation Comments POC ARTERIAL BLOOD GAS PH (test 7.385 7.35-7.45 N code = POCPHA) POC ARTERIAL BLOOD GAS PCO2 (test 46.4 mmHg 35.0-45 H code = UJOKTA3A) POC TCO2 ARTERIAL (test code = 29.2 POCTCO2) POC ARTERIAL BLOOD GAS PO2 (test 89.1 mmHg 80-100.0 N code = MNMPW2Z) POC HCO3 ARTERIAL (test code = 27.8 MMOL/L 22.0-26.0 H XJAZSS7A) POC BASE EXCESS (test code = 2.7 MMOL/L -4.0-4.0 N POCBEA) POC O2 SATURATION (test code = 96.7 % 90-100 N POCO2S) ABG DELIVERY (test code = JH) Cannula ABG TEMPERATURE (test code = 98.4 F TEMPA) ABG SITE (test code = SITEA) Art Line MARYLU'S TEST (test code = ALLENS) N/A BASIC METABOLIC [id number] 10:12:00 Test Item Value Reference Range Interpretation [...] = POCGLU) 139 MG/DL 70-110 H HEMOGLOBIN [id number] 10:12:00 Test Item Value Reference Range Interpretation Comments HEMOGLOBIN ABG (test code = HGB/ABG) 8.0 G/DL 12.5-16.9 L [id number] 10:12:00 Test Item Value Reference Range Interpretation Comments HEMATOCRIT (test code = HCT/ABG) 24 % 37.5-50.7 L POC LACTIC [id number] 10:12:00 Test Item Value Reference Range Interpretation Comments POC LACTIC ACID (test code = 1.3 mmol/l 0.9-1.7 N POCLAC) GLUCOSE [id number] 06:10:00 Test Item Value Reference Range Interpretation Comments GLUCOSE BEDSIDE (test 146 MG/DL 70-110 H Perfor med by certified code = GLUBED) 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[facility] GLUCOSE [id number] 05:27:00 Test Item Value Reference Range Interpretation Comments GLUCOSE BEDSIDE (test 129 MG/DL 70-110 H Perfor med by certified code = GLUBED) 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[facility] BASIC METABOLIC [id number] 04:28:00 Test Item Value Reference Range Interpretation [...] 8.0-10.5 N CA) COMMENTS: POD #1HEPATIC FUNCTION [id number] 04:28:00 Test Item Value Reference Range Interpretation [...] 20-125 N code = ALKP) COMMENTS: POD #[id number] 04:28:00 Test Item Value Reference Range Interpretation Comments PHOSPHOROUS (test code = PHOS) 3.8 MG/DL 2.5-4.9 N COMMENTS: POD #[id number] 04:28:00 Test Item Value Reference Range Interpretation Comments MAGNESIUM (test code = MAG) 2.32 mg/dL 1.80-2.40 N COMMENTS: POD #1CALCIUM [id number] 04:28:00 Test Item Value Reference Range Interpretation Comments CALCIUM IONIZED (test code = ARVIN) 1.14 MMOL/L 1.09-1.30 N COMMENTS: POD #1CBC W/AUTO [id number] 03:50:00 Test Item Value Reference Range Interpretation [...] NO code = MDIFF) POC ARTERIAL BLOOD [id number] 03:36:00 Test Item Value Reference Range Interpretation Comments POC ARTERIAL BLOOD GAS PH (test 7.408 7.35-7.45 N code = POCPHA) POC ARTERIAL BLOOD GAS PCO2 (test 42.4 mmHg 35.0-45 N code = HRMDHE0S) POC TCO2 ARTERIAL (test code = 28.1 POCTCO2) POC ARTERIAL BLOOD GAS PO2 (test 62.6 mmHg 80-100.0 L code = VIKAG7F) POC HCO3 ARTERIAL (test code = 26.8 MMOL/L 22.0-26.0 H ZNNMTD1V) POC BASE EXCESS (test code = 2.1 MMOL/L -4.0-4.0 N POCBEA) POC O2 SATURATION (test code = 91.7 % 90-100 N POCO2S) ABG DELIVERY (test code = JH) [facility] ABG SITE (test code = SITEA) Art Line BASIC METABOLIC [id number] 03:36:00 Test Item Value Reference Range Interpretation [...] = POCGLU) 111 MG/DL 70-110 H HEMOGLOBIN [id number] 03:36:00 Test Item Value Reference Range Interpretation Comments HEMOGLOBIN ABG (test code = HGB/ABG) 8.3 G/DL 12.5-16.9 L [id number] 03:36:00 Test Item Value Reference Range Interpretation Comments HEMATOCRIT (test code = HCT/ABG) 24 % 37.5-50.7 L POC LACTIC [id number] 03:36:00 Test Item Value Reference Range Interpretation Comments POC LACTIC ACID (test code = 0.7 mmol/l 0.9-1.7 L POCLAC) GLUCOSE [id number] 02:29:00 Test Item Value Reference Range Interpretation Comments GLUCOSE BEDSIDE (test 87 MG/DL 70-110 N Perfor med by certified code = GLUBED) 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[facility] - XR CHEST 1 [id number] 00:00:00 [facility] 1940 Sex: M FAX: Radha Ward MD [phone] [place]: St: ADM FAX: [place] [phone] FAX: Ana Toribio [phone] Name: SHERRI ARCE [facility] Pedro David : 1940 Age/S: 81/M [address] [place] [address] Unit #: [id number] Loc: [address] [address] Phys: Rosalind Puentes 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 at 0837 Reported and signed by: Babak Ratliff M.D. Report PROCEDURE INFORMATION: Exam: XR Chest Exam date and time: 07/10/2022 5:24 AM Age: 81 years old Clinical indication: Other: Cardiac surgery post op TECHNIQUE: Imaging protocol: Radiologic exam of the chest. Views: 1 view. COMPARISON: 1. CR XR CHEST 1V 07/09/2022 4:56 AM 2. CR XR CHEST 1V 07/08/2022 7:14 PM FINDINGS: Tubes, catheters and devices: Right IJ [place]-Al[place] catheter tip at the level of pulmonary [...] Signed Report (CONTINUED) FAX: Radha Ward MD [phone] [place]: St: [facility] FAX: [place] [phone] FAX: Ana Toribio [phone] Name: SHERRI ARCE [facility] : 1940 Age/S: 81/M [address] [place] [address] Unit #: [id number] Loc: G.[address] [place] [address] Phys: Rosalind Puentes NP Acct: [id number] Dis Date: Status: ADM IN PHONE #: [phone] Exam Date: 07/10/2022525 FAX #: [phone] Reason: Cardiac Surgery Post Op Report Has Been Amended EXAMS: CPT CODE: [id number] XR CHEST 1 V 37471 (Continued) thoracostomy tube in place. 2. Stable pulmonary opacities likely combination of airspace disease and atelectasis. 3. Stable small pleural effusions. 4. Stable postoperative cardiomediastinal silhouette. at 0830 Reported and signed by: Babak Ratliff M.D. CC: Radha Ward MD; [place] DO; Rosalind Toribio NP Technologist: Ines Marley, RT(R) T rnscrd Date/Time/By: 07/10/2022 (0830) : By: Robert Orig Print D/T: S: 07/10/2022 (6806) PAGE 2 Signed ReportBASIC METABOLIC [id number] 23:54:00 Test Item Value Reference Range Interpretation [...] = POCGLU) 152 MG/DL 70-110 H HEMOGLOBIN [id number] 23:54:00 Test Item Value Reference Range Interpretation Comments HEMOGLOBIN ABG (test code = HGB/ABG) 8.1 G/DL 12.5-16.9 L [id number] 23:54:00 Test Item Value Reference Range Interpretation Comments HEMATOCRIT (test code = HCT/ABG) 24 % 37.5-50.7 L POC LACTIC [id number] 23:54:00 Test Item Value Reference Range Interpretation Comments POC LACTIC ACID (test code = 0.6 mmol/l 0.9-1.7 L POCLAC) POC VENOUS BLOOD [id number] 23:54:00 Test Item Value Reference Range Interpretation Comments POC VENOUS BLOOD GAS PH (test 7.361 7.33-7.45 N code = POCPHV) POC VENOUS BLOOD GAS PCO2 (test 46.8 mmHg 43-47 N code = OEEQAF8L) POC VENOUS BLOOD GAS PO2 (test 33.2 mmHG 10-50 N code = RRJLB4I) POC TCO2 VENOUS (test code = 27.9 GRNIWG0W) POC HCO3 VENOUS (test code = 26.5 MMOL/L 22-27 N KCJHVN3U) POC BASE EXCESS VENOUS (test code 1.1 MMOL/L -4.0-4.0 N = POCBEV) POC O2 SATURATION VENOUS (test 61.0 % 60-80 N code = PLXS4FJ) VENOUS BLOOD GAS DELIVERY (test HFNC code = DELV) VENOUS BLOOD GAS SITE (test code [place] Ally = SITEV) BASIC METABOLIC [id number] 22:13:00 Test Item Value Reference Range Interpretation [...] code = 7.9 mg/dL 8.0-10.5 L CA) [id number] 22:13:00 Test Item Value Reference Range Interpretation Comments PHOSPHOROUS (test code = PHOS) 4.1 MG/DL 2.5-4.9 N [id number] 22:13:00 Test Item Value Reference Range Interpretation Comments MAGNESIUM (test code = MAG) 2.25 mg/dL 1.80-2.40 N CALCIUM [id number] 22:13:00 Test Item Value Reference Range Interpretation Comments CALCIUM IONIZED (test code = ARVIN) 1.11 MMOL/L 1.09-1.30 N POC ARTERIAL BLOOD [id number] 21:34:00 Test Item Value Reference Range Interpretation Comments POC ARTERIAL BLOOD GAS PH (test 7.373 7.35-7.45 N code = POCPHA) POC ARTERIAL BLOOD GAS PCO2 (test 43.6 mmHg 35.0-45 N code = QLEZFR0M) POC TCO2 ARTERIAL (test code = 26.8 POCTCO2) POC ARTERIAL BLOOD GAS PO2 (test 69.7 mmHg 80-100.0 L code = KWXKA1A) POC HCO3 ARTERIAL (test code = 25.4 MMOL/L 22.0-26.0 N TXJEIG9H) POC BASE EXCESS (test code = 0.2 MMOL/L -4.0-4.0 N POCBEA) POC O2 SATURATION (test code = 93.2 % 90-100 N POCO2S) ABG DELIVERY (test code = JH) HFNC ABG SITE (test code = SITEA) Art Line BASIC METABOLIC [id number] 21:34:00 Test Item Value Reference Range Interpretation [...] = POCGLU) 132 MG/DL 70-110 H HEMOGLOBIN [id number] 21:34:00 Test Item Value Reference Range Interpretation Comments HEMOGLOBIN ABG (test code = HGB/ABG) 7.8 G/DL 12.5-16.9 L [id number] 21:34:00 Test Item Value Reference Range Interpretation Comments HEMATOCRIT (test code = HCT/ABG) 23 % 37.5-50.7 L POC LACTIC [id number] 21:34:00 Test Item Value Reference Range Interpretation Comments POC LACTIC ACID (test code = 0.8 mmol/l 0.9-1.7 L POCLAC) GLUCOSE [id number] 20:28:00 Test Item Value Reference Range Interpretation Comments GLUCOSE BEDSIDE (test 104 MG/DL 70-110 N Perfor med by certified code = GLUBED) 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[facility] POC ARTERIAL BLOOD [id number] 18:43:00 Test Item Value Reference Range Interpretation Comments POC ARTERIAL BLOOD GAS PH (test 7.346 7.35-7.45 L code = POCPHA) POC ARTERIAL BLOOD GAS PCO2 (test 45.9 mmHg 35.0-45 H code = [id number]) POC TCO2 ARTERIAL (test code = 26.5 POCTCO2) POC ARTERIAL BLOOD GAS PO2 (test 50.5 mmHg 80-100.0 L code = RNVUY3G) POC HCO3 ARTERIAL (test code = 25.1 MMOL/L 22.0-26.0 N [id number]) POC BASE EXCESS (test code = -0.6 MMOL/L -4.0-4.0 N POCBEA) POC O2 SATURATION (test code = 83.1 % 90-100 L POCO2S) ABG DELIVERY (test code = JH) Room Air ABG SITE (test code = SITEA) R Radial BASIC METABOLIC [id number] 18:43:00 Test Item Value Reference Range Interpretation [...] = POCGLU) 115 MG/DL 70-110 H HEMOGLOBIN [id number] 18:43:00 Test Item Value Reference Range Interpretation Comments HEMOGLOBIN ABG (test code = HGB/ABG) 8.3 G/DL 12.5-16.9 L [id number] 18:43:00 Test Item Value Reference Range Interpretation Comments HEMATOCRIT (test code = HCT/ABG) 25 % 37.5-50.7 L POC LACTIC [id number] 18:43:00 Test Item Value Reference Range Interpretation Comments POC LACTIC ACID (test code = 1.1 mmol/l 0.9-1.7 N POCLAC) BASIC METABOLIC [id number] 16:20:00 Test Item Value Reference Range Interpretation [...] the recommended for lucretia for [facility]FRby the [facility].The GFR will not calculate if th e sex is unknown or if thepatient's ag e is <18 years. CREATININE (test 3.2 mg/dL 0.6-1.3 H code = CREAT) CALCIUM (test code = 8.7 mg/dL 8.0-10.5 N CA) [id number] 16:20:00 Test Item Value Reference Range Interpretation Comments MAGNESIUM (test code = MAG) 2.28 mg/dL 1.80-2.40 N CALCIUM [id number] 16:20:00 Test Item Value Reference Range Interpretation Comments CALCIUM IONIZED (test code = ARVIN) 1.16 MMOL/L 1.09-1.30 N CBC W/AUTO [id number] 16:10:00 Test Item Value Reference Range Interpretation [...] (test NO code = MDIFF) BASIC METABOLIC [id number] 13:20:00 Test Item Value Reference Range Interpretation [...] code = 7.8 mg/dL 8.0-10.5 L CA) [id number] 13:20:00 Test Item Value Reference Range Interpretation Comments PHOSPHOROUS (test code = PHOS) 4.3 MG/DL 2.5-4.9 N [id number] 13:20:00 Test Item Value Reference Range Interpretation Comments MAGNESIUM (test code = MAG) 2.37 mg/dL 1.80-2.40 N CALCIUM [id number] 13:20:00 Test Item Value Reference Range Interpretation Comments CALCIUM IONIZED (test code = ARVIN) 1.08 MMOL/L 1.09-1.30 L GLUCOSE [id number] 12:56:00 Test Item Value Reference Range Interpretation Comments GLUCOSE BEDSIDE (test 162 MG/DL 70-110 H Perfor med by certified code = GLUBED) 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[facility] POC ARTERIAL BLOOD [id number] 10:35:00 Test Item Value Reference Range Interpretation Comments POC ARTERIAL BLOOD GAS PH (test 7.351 7.35-7.45 N code = POCPHA) POC ARTERIAL BLOOD GAS PCO2 (test 45.1 mmHg 35.0-45 H code = ACKILU0E) POC TCO2 ARTERIAL (test code = 26.3 POCTCO2) POC ARTERIAL BLOOD GAS PO2 (test 73.8 mmHg 80-100.0 L code = YVHXZ3V) POC HCO3 ARTERIAL (test code = 25.0 MMOL/L 22.0-26.0 N NUJKWQ9L) POC BASE EXCESS (test code = -0.6 MMOL/L -4.0-4.0 N POCBEA) POC O2 SATURATION (test code = 93.8 % 90-100 N POCO2S) ABG DELIVERY (test code = JH) Cannula ABG SITE (test code = SITEA) Art Line BASIC METABOLIC [id number] 10:35:00 Test Item Value Reference Range Interpretation [...] = POCGLU) 145 MG/DL 70-110 H HEMOGLOBIN [id number] 10:35:00 Test Item Value Reference Range Interpretation Comments HEMOGLOBIN ABG (test code = HGB/ABG) 7.3 G/DL 12.5-16.9 L [id number] 10:35:00 Test Item Value Reference Range Interpretation Comments HEMATOCRIT (test code = HCT/ABG) 21 % 37.5-50.7 L POC LACTIC [id number] 10:35:00 Test Item Value Reference Range Interpretation Comments POC LACTIC ACID (test code = 2.0 mmol/l 0.9-1.7 H POCLAC) GLUCOSE [id number] 08:55:00 Test Item Value Reference Range Interpretation Comments GLUCOSE BEDSIDE (test 154 MG/DL 70-110 H Perfor med by certified code = GLUBED) 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[facility] GLUCOSE [id number] 07:51:00 Test Item Value Reference Range Interpretation Comments GLUCOSE BEDSIDE (test 178 MG/DL 70-110 H Perfor med by certified code = GLUBED) 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[facility] CBC W/AUTO [id number] 03:38:00 Test Item Value Reference Range Interpretation [...] REQUIRED (test NO code = MDIFF) PLT [id number] 03:38:00 Test Item Value Reference Range Interpretation Comments PLATELET ESTIMATE (test 92 TO 115 THOUSAND ADEQUATE code = PLTEST) PLATELET MORPHOLOGY (test LARGE PLATELETS code = PLTMORPH) BASIC METABOLIC [id number] 03:38:00 Test Item Value Reference Range Interpretation [...] 8.0-10.5 N CA) COMMENTS: POD #1HEPATIC FUNCTION [id number] 03:38:00 Test Item Value Reference Range Interpretation [...] IUnit/L 20-125 code = ALKP) COMMENTS: POD #[id number] 03:38:00 Test Item Value Reference Range Interpretation Comments MAGNESIUM (test code = MAG) 2.45 mg/dL 1.80-2.40 H COMMENTS: POD #1BASIC METABOLIC [id number] 03:37:00 Test Item Value Reference Range Interpretation [...] = POCGLU) 229 MG/DL 70-110 H HEMOGLOBIN [id number] 03:37:00 Test Item Value Reference Range Interpretation Comments HEMOGLOBIN ABG (test code = HGB/ABG) 6.5 G/DL 12.5-16.9 L [id number] 03:37:00 Test Item Value Reference Range Interpretation Comments HEMATOCRIT (test code = HCT/ABG) 19 % 37.5-50.7 L POC LACTIC [id number] 03:37:00 Test Item Value Reference Range Interpretation Comments POC LACTIC ACID (test code = 5.9 mmol/l 0.9-1.7 HH POCLAC) POC VENOUS BLOOD [id number] 03:37:00 Test Item Value Reference Range Interpretation Comments MARYLU'S TEST (test code = ALLENS) N/A POC VENOUS BLOOD GAS PH (test 7.277 7.33-7.45 L code = POCPHV) POC VENOUS BLOOD GAS PCO2 (test 45.0 mmHg 43-47 N code = WYGWDU2M) POC VENOUS BLOOD GAS PO2 (test 35.4 mmHG 10-50 N code = BJYKR6D) POC TCO2 VENOUS (test code = 22.4 LWFOJS0F) POC HCO3 VENOUS (test code = 21.0 MMOL/L 22-27 L QJCDYT4C) POC BASE EXCESS VENOUS (test code -5.8 MMOL/L -4.0-4.0 L = POCBEV) POC O2 SATURATION VENOUS (test 60.2 % 60-80 N code = ITZW5WH) VENOUS BLOOD GAS DELIVERY (test Cannula code = DELV) VENOUS BLOOD GAS TEMP (test code 98.6 F = TEMPV) VENOUS BLOOD GAS SITE (test code Colby Canales = SITEV) LACTIC [id number] 03:32:00 Test Item Value Reference Range Interpretation Comments LACTIC ACID (test 6.0 mmol/L 0.4-1.9 HH Critical r esult called code = LACT) to HALINA MedinaLA50 at 0 332 07/09/22Nurse taniya hdz back result and tech confirmed it's correct? YES POC ARTERIAL BLOOD [id number] 03:13:00 Test Item Value Reference Range Interpretation Comments POC ARTERIAL BLOOD GAS PH (test 7.310 7.35-7.45 L code = POCPHA) POC ARTERIAL BLOOD GAS PCO2 (test 42.8 mmHg 35.0-45 N code = QASZLR7J) POC TCO2 ARTERIAL (test code = 22.8 POCTCO2) POC ARTERIAL BLOOD GAS PO2 (test 73.2 mmHg 80-100.0 L code = INKBC1O) POC HCO3 ARTERIAL (test code = 21.5 MMOL/L 22.0-26.0 L HXCQLR6X) POC BASE EXCESS (test code = -4.7 MMOL/L -4.0-4.0 L POCBEA) POC O2 SATURATION (test code = 93.0 % 90-100 N POCO2S) ABG DELIVERY (test code = JH) Cannula ABG TEMPERATURE (test code = 98.6 F TEMPA) ABG SITE (test code = SITEA) Art Line MARYLU'S TEST (test code = ALLENS) N/A BASIC METABOLIC [id number] 03:13:00 Test Item Value Reference Range Interpretation [...] = POCGLU) 245 MG/DL 70-110 H HEMOGLOBIN [id number] 03:13:00 Test Item Value Reference Range Interpretation Comments HEMOGLOBIN ABG (test code = HGB/ABG) 7.0 G/DL 12.5-16.9 L [id number] 03:13:00 Test Item Value Reference Range Interpretation Comments HEMATOCRIT (test code = HCT/ABG) 21 % 37.5-50.7 L POC LACTIC [id number] 03:13:00 Test Item Value Reference Range Interpretation Comments POC LACTIC ACID (test code = 6.1 mmol/l 0.9-1.7 HH POCLAC) POC ARTERIAL BLOOD [id number] 03:01:00 Test Item Value Reference Range Interpretation Comments POC ARTERIAL BLOOD GAS PH (test 7.273 7.35-7.45 LL code = POCPHA) POC ARTERIAL BLOOD GAS PCO2 (test 46.4 mmHg 35.0-45 H code = GMGAQT4C) POC TCO2 ARTERIAL (test code = 23.1 POCTCO2) POC ARTERIAL BLOOD GAS PO2 (test 103.4 mmHg 80-100.0 H code = XBBYI3F) POC HCO3 ARTERIAL (test code = 21.6 MMOL/L 22.0-26.0 L TLGIZJ6F) POC BASE EXCESS (test code = -5.4 [...] (test code = ALLENS) N/A BASIC METABOLIC [id number] 03:01:00 Test Item Value Reference Range Interpretation [...] = POCGLU) 206 MG/DL 70-110 H HEMOGLOBIN [id number] 03:01:00 Test Item Value Reference Range Interpretation Comments HEMOGLOBIN ABG (test code = HGB/ABG) 8.7 G/DL 12.5-16.9 L [id number] 03:01:00 Test Item Value Reference Range Interpretation Comments HEMATOCRIT (test code = HCT/ABG) 26 % 37.5-50.7 L POC LACTIC [id number] 03:01:00 Test Item Value Reference Range Interpretation Comments POC LACTIC ACID (test code = 3.6 mmol/l 0.9-1.7 H POCLAC) GLUCOSE [id number] 02:45:00 Test Item Value Reference Range Interpretation Comments GLUCOSE BEDSIDE (test 230 MG/DL 70-110 H Perfor med by certified code = GLUBED) 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[facility] LACTIC ACID 2ND [id number] 02:04:00 Test Item Value Reference Range Interpretation Comments LACTIC ACID 2ND REPEAT (test code 6.6 mmol/L 0.4-1.9 HH = LACT2) - XR CHEST 1 [id number] 00:00:00 [facility] 1940 Sex: M FAX: Radha aWrd MD [phone] [place]: St: ADM FAX: [place] [phone] FAX: Ana Toribio [phone] Name: SHAYLEE ARCEE [facility] : 1940 Age/S: 81/M [address] [place] [address] Bl Unit #: [id number] Loc: [address] [place] [address] Phys: Rosalind Puentes REFORMATORY ATTENDANT Acct: [id number] Dis Date: Status: ADM IN PHONE #: [phone] Exam Date: 07/09/2022614 FAX #: [phone] Reason: Cardiac Surgery Post Op EXAMS: CPT CODE: [id number] XR CHEST 1 V [id number] PROCEDURE INFORMATION: Exam: XR Chest Exam dateand time: 07/09/2022 4:56 AM Age: 81 years old Clinical indication: Other: Cardiac surgery post op TECHNIQUE: Imaging protocol: Radiologic exam of the chest. Views: 1 view. COMPARISON: CR XR CHEST 1V 07/08/2022 7:14 PM FINDINGS: Tubes, catheters and devices: Endotracheal tube and enteric tube have been removed. [place] catheter tip at the level of pulmonary arterial bifurcation. Mediastinal and left thoracostomy drains in place. Lungs: Indistinct opacities in the perihilar regions and lung bases redem onstrated. The left hemidiaphragm is obscured. Pleural spaces: [...] By: Robert Orig Print D/T: S: 07/09/2022 ([id number]) PAGE 1 Signed ReportPO ARTERIAL BLOOD GAS 2022-07-08 23:43:00 Test Item Value Reference Range Interpretation Comments POC ARTERIAL BLOOD GAS PH (test 7.299 7.35-7.45 LL code = POCPHA) POC ARTERIAL BLOOD GAS PCO2 (test 41.3 mmHg 35.0-45 N code = EXSAUI7M) POC TCO2 ARTERIAL (test code = 21.5 POCTCO2) POC ARTERIAL BLOOD GAS PO2 (test 109.2 mmHg 80-100.0 H code = TUSEC3U) POC HCO3 ARTERIAL (test code = 20.3 MMOL/L 22.0-26.0 L YKTBRI2X) POC BASE EXCESS (test code = -6.2 MMOL/L -4.0-4.0 L POCBEA) POC O2 SATURATION (test code = 97.7 % 90-100 N POCO2S) ABG DELIVERY (test code = JH) Cannula ABG TEMPERATURE (test code = 98.6 F TEMPA) ABG SITE (test code = SITEA) Art Line MARYLU'S TEST (test code = ALLENS) N/A BASIC METABOLIC [id number] 23:43:00 Test Item Value Reference Range Interpretation [...] = POCGLU) 234 MG/DL 70-110 H HEMOGLOBIN [id number] 23:43:00 Test Item Value Reference Range Interpretation Comments HEMOGLOBIN ABG (test code = HGB/ABG) 7.7 G/DL 12.5-16.9 L [id number] 23:43:00 Test Item Value Reference Range Interpretation Comments HEMATOCRIT (test code = HCT/ABG) 23 % 37.5-50.7 L POC LACTIC [id number] 23:43:00 Test Item Value Reference Range Interpretation Comments POC LACTIC ACID (test code = 5.1 mmol/l 0.9-1.7 HH POCLAC) LACTIC ACID [id number] 22:54:00 Test Item Value Reference Range Interpretation Comments LACTIC ACID REPEAT (test code = 5.0 mmol/l 0.4-1.9 HH LACTR) BASIC METABOLIC [id number] 20:54:00 Test Item Value Reference Range Interpretation [...] = POCGLU) 190 MG/DL 70-110 H HEMOGLOBIN [id number] 20:54:00 Test Item Value Reference Range Interpretation Comments HEMOGLOBIN ABG (test code = HGB/ABG) 8.0 G/DL 12.5-16.9 L [id number] 20:54:00 Test Item Value Reference Range Interpretation Comments HEMATOCRIT (test code = HCT/ABG) 23 % 37.5-50.7 L POC LACTIC [id number] 20:54:00 Test Item Value Reference Range Interpretation Comments POC LACTIC ACID (test code = 2.5 mmol/l 0.9-1.7 H POCLAC) POC VENOUS BLOOD [id number] 20:54:00 Test Item Value Reference Range Interpretation Comments MARYLU'S TEST (test code = ALLENS) N/A POC VENOUS BLOOD GAS PH (test 7.265 7.33-7.45 L code = POCPHV) POC VENOUS BLOOD GAS PCO2 (test 48.5 mmHg 43-47 H code = ESPKXP3W) POC VENOUS BLOOD GAS PO2 (test 41.1 mmHG 10-50 N code = OAGJX3F) POC TCO2 VENOUS (test code = 23.9 DYNONF2T) POC HCO3 VENOUS (test code = 22.3 MMOL/L 22-27 N DLBXAS1C) POC BASE EXCESS VENOUS (test code -4.9 MMOL/L -4.0-4.0 L = POCBEV) POC O2 SATURATION VENOUS (test 72.4 % 60-80 N code = NIHD9EK) VENOUS BLOOD GAS FIO2 (test code 50 [...] code Colby Canales = SITEV) CBC W/AUTO [id number] 20:37:00 Test Item Value Reference Range Interpretation [...] N code = NRBC#) COMMENTS: On arrivalPROTHROMBIN [id number] 20:37:00 Test Item Value Reference Range Interpretation [...] recurrent infar ct). COMMENTS: On arrivalTHROMBOPLASTIN TIME [id number] 20:37:00 Test Item Value Reference Range Interpretation Comments THROMBOPLASTIN TIME 31.3 Seconds 25.0-39.5 N Therape utic Range: PARTIAL (test code = 50.4 - 88.3 Seconds PTT) Effective 09/21/2018 COMMENTS: On arrivalBASIC METABOLIC [id number] 20:32:00 Test Item Value Reference Range Interpretation [...] the recommended for lucretia for [facility]FRby the [facility].The GFR will not calculate if th e sex is unknown or if thepatient's ag e is <18 years. CREATININE (test 4.1 mg/dL 0.6-1.3 H code = CREAT) CALCIUM (test code = 7.6 mg/dL 8.0-10.5 L CA) COMMENTS: On [id number] 20:32:00 Test Item Value Reference Range Interpretation Comments MAGNESIUM (test code = MAG) 2.53 mg/dL 1.80-2.40 H COMMENTS: On arrivalLACTIC [id number] 20:31:00 Test Item Value Reference Range Interpretation Comments LACTIC ACID (test code = LACT) 2.1 mmol/L 0.4-1.9 H POC ARTERIAL BLOOD [id number] 19:38:00 Test Item Value Reference Range Interpretation Comments POC ARTERIAL BLOOD GAS PH (test 7.263 7.35-7.45 LL code = POCPHA) POC ARTERIAL BLOOD GAS PCO2 44.1 mmHg 35.0-45 N (test code = FBSXCN9B) POC TCO2 ARTERIAL (test code = 21.5 POCTCO2) POC ARTERIAL BLOOD GAS PO2 (test 111.1 mmHg 80-100.0 H code = YETEF1D) POC HCO3 ARTERIAL (test code = 20.1 MMOL/L 22.0-26.0 L DDKTRL4L) POC BASE EXCESS (test code = -7.1 MMOL/L -4.0-4.0 L POCBEA) POC O2 SATURATION (test code = 97.7 % 90-100 N POCO2S) FIO2 (test code = FIO2A) 50 % PaO2/FiO2 (test code = UCQ0SQN3) 222.20 mm/Hg ABG DELIVERY (test code = JH) Adult Vent ABG VENT MODE (test code = AC MODEA) ABG VENT RESP RATE (test code = 16 /MIN RRA) ABG TIDAL VOLUME (test code = 450 ml TVA) ABG PEEP (test code = PEEPA) 5 cmH2O ABG TEMPERATURE (test code = 97.3 F TEMPA) ABG SITE (test code = SITEA) Art Line BASIC METABOLIC [id number] 19:38:00 Test Item Value Reference Range Interpretation [...] = POCGLU) 201 MG/DL 70-110 H HEMOGLOBIN [id number] 19:38:00 Test Item Value Reference Range Interpretation Comments HEMOGLOBIN ABG (test code = HGB/ABG) 8.3 G/DL 12.5-16.9 L [id number] 19:38:00 Test Item Value Reference Range Interpretation Comments HEMATOCRIT (test code = HCT/ABG) 24 % 37.5-50.7 L POC LACTIC [id number] 19:38:00 Test Item Value Reference Range Interpretation Comments POC LACTIC ACID (test code = 2.1 mmol/l 0.9-1.7 H POCLAC) [id number] 18:50:00 Test Item Value Reference Range Interpretation Comments ACT-ISTAT (test code 143 SEC 74-137 H Perform ed by certified = ACTI) 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[facility] POC ARTERIAL BLOOD [id number] 18:46:00 Test Item Value Reference Range Interpretation Comments POC ARTERIAL BLOOD GAS PH (test 7.313 7.35-7.45 L code = POCPHA) POC ARTERIAL BLOOD GAS PCO2 (test 36.8 mmHg 35.0-45 N code = DGYYKO2U) POC TCO2 ARTERIAL (test code = 19.8 POCTCO2) POC ARTERIAL BLOOD GAS PO2 (test 375.0 mmHg 80-100.0 HH code = NYSXQ2F) POC HCO3 ARTERIAL (test code = 18.7 MMOL/L 22.0-26.0 L ONIVAF9S) POC BASE EXCESS (test code = -6.9 MMOL/L -4.0-4.0 L POCBEA) POC O2 SATURATION (test code = 99.9 % 90-100 N POCO2S) BASIC METABOLIC [id number] 18:46:00 Test Item Value Reference Range Interpretation [...] = POCGLU) 181 MG/DL 70-110 H HEMOGLOBIN [id number] 18:46:00 Test Item Value Reference Range Interpretation Comments HEMOGLOBIN ABG (test code = HGB/ABG) 7.5 G/DL 12.5-16.9 L [id number] 18:46:00 Test Item Value Reference Range Interpretation Comments HEMATOCRIT (test code = HCT/ABG) 22 % 37.5-50.7 L POC LACTIC [id number] 18:46:00 Test Item Value Reference Range Interpretation Comments POC LACTIC ACID (test code = 2.5 mmol/l 0.9-1.7 H POCLAC) [id number] 17:57:00 Test Item Value Reference Range Interpretation Comments ACT-ISTAT (test code 522 SEC 74-137 H Perform ed by certified = ACTAce) 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[facility] POC ARTERIAL BLOOD [id number] 17:50:00 Test Item Value Reference Range Interpretation Comments POC ARTERIAL BLOOD GAS PH (test 7.432 7.35-7.45 N code = POCPHA) POC ARTERIAL BLOOD GAS PCO2 (test 33.6 mmHg 35.0-45 L code = YYAJWW6J) POC TCO2 ARTERIAL (test code = 23.4 POCTCO2) POC ARTERIAL BLOOD GAS PO2 (test 404.5 mmHg 80-100.0 HH code = HLDKR6U) POC HCO3 ARTERIAL (test code = 22.4 MMOL/L 22.0-26.0 N CJZRRX8W) POC BASE EXCESS (test code = -1.6 MMOL/L -4.0-4.0 N POCBEA) POC O2 SATURATION (test code = 100.0 % 90-100 N POCO2S) BASIC METABOLIC [id number] 17:50:00 Test Item Value Reference Range Interpretation [...] = POCGLU) 171 MG/DL 70-110 H HEMOGLOBIN [id number] 17:50:00 Test Item Value Reference Range Interpretation Comments HEMOGLOBIN ABG (test code = HGB/ABG) 7.7 G/DL 12.5-16.9 L [id number] 17:50:00 Test Item Value Reference Range Interpretation Comments HEMATOCRIT (test code = HCT/ABG) 23 % 37.5-50.7 L POC LACTIC [id number] 17:50:00 Test Item Value Reference Range Interpretation Comments POC LACTIC ACID (test code = 1.8 mmol/l 0.9-1.7 H POCLAC) [id number] 17:32:00 Test Item Value Reference Range Interpretation Comments KIRA-ISJOSET (test code 636 SEC 74-137 H Perform ed by certified = ACTI) 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[facility] POC ARTERIAL BLOOD [id number] 17:23:00 Test Item Value Reference Range Interpretation Comments POC ARTERIAL BLOOD GAS PH (test 7.401 7.35-7.45 N code = POCPHA) POC ARTERIAL BLOOD GAS PCO2 (test 33.4 mmHg 35.0-45 L code = SSVYEW7J) POC TCO2 ARTERIAL (test code = 21.7 POCTCO2) POC ARTERIAL BLOOD GAS PO2 (test 327.7 mmHg 80-100.0 HH code = BRBCR6R) POC HCO3 ARTERIAL (test code = 20.7 MMOL/L 22.0-26.0 L XUSRFB2N) POC BASE EXCESS (test code = -3.6 MMOL/L -4.0-4.0 N POCBEA) POC O2 SATURATION (test code = 99.9 % 90-100 N POCO2S) BASIC METABOLIC [id number] 17:23:00 Test Item Value Reference Range Interpretation [...] = POCGLU) 171 MG/DL 70-110 H HEMOGLOBIN [id number] 17:23:00 Test Item Value Reference Range Interpretation Comments HEMOGLOBIN ABG (test code = HGB/ABG) 8.6 G/DL 12.5-16.9 L [id number] 17:23:00 Test Item Value Reference Range Interpretation Comments HEMATOCRIT (test code = HCT/ABG) 25 % 37.5-50.7 L POC LACTIC [id number] 17:23:00 Test Item Value Reference Range Interpretation Comments POC LACTIC ACID (test code = 1.2 mmol/l 0.9-1.7 N POCLAC) [id number] 16:57:00 Test Item Value Reference Range Interpretation Comments MARYCHUY (test code 648 SEC 74-137 H Perform ed by certified = ACTI) 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[facility] POC ARTERIAL BLOOD [id number] 16:46:00 Test Item Value Reference Range Interpretation Comments POC ARTERIAL BLOOD GAS PH (test 7.355 7.35-7.45 N code = POCPHA) POC ARTERIAL BLOOD GAS PCO2 (test 43.3 mmHg 35.0-45 N code = NRCXVB2M) POC TCO2 ARTERIAL (test code = 25.5 POCTCO2) POC ARTERIAL BLOOD GAS PO2 (test 469.8 mmHg 80-100.0 HH code = UKFVN6S) POC HCO3 ARTERIAL (test code = 24.2 MMOL/L 22.0-26.0 N VJCJHA8I) POC BASE EXCESS (test code = -1.3 MMOL/L -4.0-4.0 N POCBEA) POC O2 SATURATION (test code = 100.0 % 90-100 N POCO2S) BASIC METABOLIC [id number] 16:46:00 Test Item Value Reference Range Interpretation [...] = POCGLU) 169 MG/DL 70-110 H HEMOGLOBIN [id number] 16:46:00 Test Item Value Reference Range Interpretation Comments HEMOGLOBIN ABG (test code = HGB/ABG) 8.4 G/DL 12.5-16.9 L [id number] 16:46:00 Test Item Value Reference Range Interpretation Comments HEMATOCRIT (test code = HCT/ABG) 25 % 37.5-50.7 L POC LACTIC [id number] 16:46:00 Test Item Value Reference Range Interpretation Comments POC LACTIC ACID (test code = 0.6 mmol/l 0.9-1.7 L POCLAC) [id number] 16:00:00 Test Item Value Reference Range Interpretation Comments ACT-ISTAT (test code 606 SEC 74-137 H Perform ed by certified = ACTI) 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[facility] [id number] 15:50:00 Test Item Value Reference Range Interpretation Comments HEMATOCRIT (test code = HCT/ABG) 32 % 37.5-50.7 L POC LACTIC [id number] 15:50:00 Test Item Value Reference Range Interpretation Comments POC LACTIC ACID (test code = 0.8 mmol/l 0.9-1.7 L POCLAC) POC ARTERIAL BLOOD [id number] 15:50:00 Test Item Value Reference Range Interpretation Comments POC ARTERIAL BLOOD GAS PH (test 7.262 7.35-7.45 LL code = POCPHA) POC ARTERIAL BLOOD GAS PCO2 (test 49.5 mmHg 35.0-45 H code = DNXYGI2Z) POC TCO2 ARTERIAL (test code = 23.8 POCTCO2) POC ARTERIAL BLOOD GAS PO2 (test 458.7 mmHg 80-100.0 HH code = MBKZV5I) POC HCO3 ARTERIAL (test code = 22.3 MMOL/L 22.0-26.0 N XVTVWG5H) POC BASE EXCESS (test code = -4.8 MMOL/L -4.0-4.0 L POCBEA) POC O2 SATURATION (test code = 100.0 % 90-100 N POCO2S) BASIC METABOLIC [id number] 15:50:00 Test Item Value Reference Range Interpretation [...] = POCGLU) 141 MG/DL 70-110 H HEMOGLOBIN [id number] 15:50:00 Test Item Value Reference Range Interpretation Comments HEMOGLOBIN ABG (test code = 10.8 G/DL 12.5-16.9 L HGB/ABG) [id number] 15:07:00 Test Item Value Reference Range Interpretation Comments ACT-ISTAT (test code 137 SEC 74-137 N Perform ed by certified = ACTI) 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[facility] POC ARTERIAL BLOOD [id number] 14:52:00 Test Item Value Reference Range Interpretation Comments POC ARTERIAL BLOOD GAS PH (test 7.330 7.35-7.45 L code = POCPHA) POC ARTERIAL BLOOD GAS PCO2 (test 40.0 mmHg 35.0-45 N code = [id number]) POC TCO2 ARTERIAL (test code = 22.3 POCTCO2) POC ARTERIAL BLOOD GAS PO2 (test 487.7 mmHg 80-100.0 HH code = [id number]) POC HCO3 ARTERIAL (test code = 21.1 MMOL/L 22.0-26.0 L UVEIFS2M) POC BASE EXCESS (test code = -4.5 MMOL/L -4.0-4.0 L POCBEA) POC O2 SATURATION (test code = 100.0 % 90-100 N POCO2S) BASIC METABOLIC [id number] 14:52:00 Test Item Value Reference Range Interpretation [...] = POCGLU) 88 MG/DL 70-110 N HEMOGLOBIN [id number] 14:52:00 Test Item Value Reference Range Interpretation Comments HEMOGLOBIN ABG (test code = 11.3 G/DL 12.5-16.9 L HGB/ABG) [id number] 14:52:00 Test Item Value Reference Range Interpretation Comments HEMATOCRIT (test code = HCT/ABG) 33 % 37.5-50.7 L POC LACTIC [id number] 14:52:00 Test Item Value Reference Range Interpretation Comments POC LACTIC ACID (test code = < 0.3 mmol/l 0.9-1.7 L POCLAC) PROTHROMBIN [id number] 06:01:00 Test Item Value Reference Range Interpretation Comments PROTHROMBIN TIME 12.9 SECONDS 9.3-12.9 N PATIENT (test code = PTP) INTERNATIONAL NORMAL 1.2 0.8-1.2 N TARGE T INR BY RATIO (test code = INDICATIO [...] (to prevent recurrent infar ct). THROMBOPLASTIN TIME [id number] 06:01:00 Test Item Value Reference Range Interpretation Comments THROMBOPLASTIN TIME 31.8 Seconds 25.0-39.5 N Therape utic Range: PARTIAL (test code = 50.4 - 88.3 Seconds PTT) Effective 09/21/2018 COMPREHENSIVE METABOLIC [id number] 06:00:00 Test Item Value Reference Range Interpretation [...] 20-125 N TOTAL (test code = ALKP) [id number] 06:00:00 Test Item Value Reference Range Interpretation Comments PHOSPHOROUS (test code = PHOS) 3.8 MG/DL 2.5-4.9 N [id number] 06:00:00 Test Item Value Reference Range Interpretation Comments MAGNESIUM (test code = MAG) 1.92 mg/dL 1.80-2.40 N CBC W/AUTO [id number] 05:48:00 Test Item Value Reference Range Interpretation [...] NO = MDIFF) - XR CHEST 1 [id number] 00:00:00 [facility] 1940 Sex: M FAX: Radha Ward MD [phone] [place]: St: [facility] FAX: [place] [phone] FAX: Ana Toribio [phone] Name: SHERRI ARCE [facility] : 1940 Age/S: 81/M [address] [place] [address] Unit #: [id number] Loc: [address] [place] [id number] Phys: Rosalind Puentes REFORMATORY ATTENDANT Acct: [id number] Dis Date: Status: ADM IN PHONE #: [phone] Exam Date: 07/08/20221919 FAX #: [phone] Reason: Cardiac Surgery Post Op EXAMS: CPT CODE: [id number] XR CHEST 1 V [id number] PROCEDURE INFORMATION: Exam: XR Chest Exam date [...] cephalad of the michael. 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 THROMBOPLASTIN TIME [id number] 06:05:00 Test Item Value Reference Range Interpretation Comments THROMBOPLASTIN TIME 33.5 Seconds 25.0-39.5 N Therape utic Range: PARTIAL (test code = 50.4 - 88.3 Seconds PTT) Effective 09/21/2018 B-TYPE NATRIURETIC [id number] 04:25:00 Test Item Value Reference Range Interpretation Comments B-TYPE NATRIURETIC PEPTIDE (test 161.0 PG/ML 0-100 H code = BNP) COMPREHENSIVE METABOLIC [id number] 04:13:00 Test Item Value Reference Range Interpretation [...] 20-125 N TOTAL (test code = ALKP) [id number] 04:13:00 Test Item Value Reference Range Interpretation Comments PHOSPHOROUS (test code = PHOS) 4.1 MG/DL 2.5-4.9 N [id number] 04:13:00 Test Item Value Reference Range Interpretation Comments MAGNESIUM (test code = MAG) 1.75 mg/dL 1.80-2.40 L CBC W/AUTO [id number] 03:57:00 Test Item Value Reference Range Interpretation [...] NO = MDIFF) COVID 19 Asymptomatic IH [id number] 15:22:00 Test Item Value Reference Range Interpretation [...] high or waivedcomplexit y tests. BASIC METABOLIC [id number] 05:37:00 Test Item Value Reference Range Interpretation [...] code = 8.4 mg/dL 8.0-10.5 N CA) [id number] 05:37:00 Test Item Value Reference Range Interpretation Comments PHOSPHOROUS (test code = PHOS) 3.9 MG/DL 2.5-4.9 N [id number] 05:37:00 Test Item Value Reference Range Interpretation Comments MAGNESIUM (test code = MAG) 1.75 mg/dL 1.80-2.40 L CBC W/AUTO [id number] 05:25:00 Test Item Value Reference Range Interpretation [...] DIFF REQUIRED (test code NO = MDIFF) [id number] 10:01:00 Test Item Value Reference Range Interpretation Comments MAGNESIUM (test code = MAG) 2.07 mg/dL 1.80-2.40 ACUTE HEPATITIS [id number] 08:13:00 Test Item Value Reference Range Interpretation Comments AB HEPATITIS A IGM (test NON REACTIVE INDEX NON REACT. code = HAVMAB) AG HEPATITIS B SURFACE NON REACTIVE INDEX NonReactive (test code = HBSAG) AB HEPATITIS B CORE IGM NON REACTIVE INDEX NON REACT. (test code = HBCMAB) AB HEPATITIS C (test code NON REACTIVE INDEX NON REACT. = HCVAB) AB HEPATITIS B [id number] 08:13:00 Test Item Value Reference Range Interpretation Comments AB HEPATITIS B 3.7 mIU/mL See_Comment L Status of Im munity SURFACE (test code = Anti-HB s Level HBSAB) --- I nconsis tent with Immun ity 0.0 - 9.9Consistent with Immunity >9.9Pe rformed At: [facility] [id number] [place], [place] [id number] Kyle L MD Ph:[phone] [Automated mess age] The system [employer] generated this result transmitted ref erence range: Immunity >9.9. The reference r shree was not used to interpret this result as normal/abnor mal. BASIC METABOLIC [id number] 05:34:00 Test Item Value Reference Range Interpretation [...] 8.1 mg/dL 8.0-10.5 N CA) CBC W/AUTO [id number] 05:19:00 Test Item Value Reference Range Interpretation [...] (test code NO = MDIFF) BASIC METABOLIC [id number] 05:16:00 Test Item Value Reference Range Interpretation [...] code = 7.8 mg/dL 8.0-10.5 L CA) [id number] 05:16:00 Test Item Value Reference Range Interpretation Comments PHOSPHOROUS (test code = PHOS) 4.0 MG/DL 2.5-4.9 N [id number] 05:16:00 Test Item Value Reference Range Interpretation Comments MAGNESIUM (test code = MAG) 1.40 mg/dL 1.80-2.40 L CBC W/AUTO [id number] 05:09:00 Test Item Value Reference Range Interpretation [...] (test code NO = MDIFF) UR SODIUM [id number] 11:10:00 Test Item Value Reference Range Interpretation Comments UR SODIUM RANDOM 67 MEQ/L The Referen ce Range and (test code = SIMONE) Method Per formance specificationsh ave not been established for this fluid. The test result should be correlated into the clinical context forinte rpretation. UR PROTEIN [id number] 11:10:00 Test Item Value Reference Range Interpretation Comments UR PROTEIN RANDOM (test code = 129 mg/dL PROTU) UR CREATININE [id number] 11:10:00 Test Item Value Reference Range Interpretation Comments UR CREATININE 36.2 mg/dL The Reference Range and RANDOM (test code Method Per formance = CREATU) specificationsh ave not been establishe d for this fluid. The test resultshould be correlated into the clinical contex t forinterpretati on. UA RFLX MICR CULT IF [id number] 11:05:00 Test Item Value Reference Range Interpretation [...] Indication for culture: Flank PainSpecimen Description: CLEAN ETIOCQYER3W% 2022-07-03 10:50:00 Test Item Value Reference Range [...] (test code = LDL) NEAR OPTIM AL/ABOVE [id number] [id number] 89 HIGH>IU=102 ALIZA Y HIGH*Guidelines provided by the National Choles terol EducationProgra m Adult Treatment Panel III THYROID STIMULATING [id number] 08:08:00 Test Item Value Reference Range Interpretation Comments THYROID STIMULATING 3.33 0.42-5.47 N Results in HORMONE (test code = TSH) mi lli-International Units/mL BASIC METABOLIC [id number] 08:08:00 Test Item Value Reference Range Interpretation [...] race indifferent and is the recommended for [facility] for GFRby the [facility] on for Adults.The GFR will not calculate if th e sex is unknown or if thepatient's ag e is <18 years. CREATININE (test 7.3 mg/dL 0.6-1.3 H code = CREAT) CALCIUM (test code = 8.0 mg/dL 8.0-10.5 N CA) HGBA1C%2022-07-03 08:04:00 Test Item Value Reference Range Interpretation Comments HGBA1C% (test code = HGBA1C%) 5.2 %A1C 4.8-6.0 N CBC W/AUTO [id number] 07:17:00 Test Item Value Reference Range Interpretation [...] (test code NO = MDIFF) - RETROPERITONEAL [id number] 00:00:00 [facility] 1940 Sex: M Name: SHERRI ARCE [facility] [place] : 1940 Age/S: 81 / M [address] [place] [address] Unit #: [id number] Loc: [place] [address] Phys: Evelina Plaza MD Acct: [id number] Dis Date: Status: ADM IN PHONE #: [phone] Exam Date: 07/03/2022 1208 FAX #: [phone] Reason: claudette EXAMS: CPT CODE: [id number] US RETROPERITONEAL COM [id number] PROCEDURE INFORMATION: Exam: US Retroperitoneal; Complete; Kidneys and Bladder Exam date and time: 07/03/2022 11:22 AM Age: 81 years old Clinical indication: Other: Claudette TECHNIQUE: Imaging protocol: Real-time ultrasound of the retroperitoneum with image documentation. Complete exam focused on the kidneys and bladder. COMPARISON: CT CHEST W/O CONTRAST 06/28/2022 7:38 PM FINDINGS: Gallbladder: The multiple echogenic foci with comet tail [...] MD; Los Crawford DO Technologist: Goran Art Trntxb Date/Time: 07/03/2022 (1551) [email or web address] Orig Print D/T: S: 07/03/2022 (9852) Probe: PAGE 1 Signed Report- DUP EXTRACRANIAL [id number] 00:00:00 [facility] : 1940 Sex: M Name: SHERRI ARCE [facility] [place] : 1940 Age/S: 81 / M [address] [place] [address] Blvd Unit #: [id number] Loc: [place] [address] Phys: Gianna Hoover Acct: [id number] Dis Date: Status: ADM IN PHONE #: [phone] Exam Date: 07/03/2022 1208 FAX #: [phone] Reason: PRE CABG WORKUP EXAMS: CPT CODE: [id number] DUP EXTRACRANIAL VARUN 94232 PROCEDURE INFORMATION: Exam: US Duplex Bilateral Extracranial Arteries, Carotid Arteries Exam date and time: 07/03/2022 11:14 AM Age: 81 years old Clinical indication:Screening exam; Additional info: Pre cabg workup TECHNIQUE: [...] criteria defined by the Society of Radiologists inUltrasound (SRU). Normal is no stenosis. Mild is less than 50% stenosis. Moderate is 50-69% stenosis. Severe is greater than 69% stenosis to near occlusion. Near occlusion is a markedly narrowed lumen.Total occlusion is no detectable patent lumen. at 1255 Reported and signed by: Brett Berry M.D. PAGE 1 Signed Report (CONTINUED)Name: SHERRI ARCE : 1940 Age/S: 81 / M [address] [place] [address] Unit #: [id number] Loc: [place] [address] Phys: Gianna Hoover Acct: [id number] Dis Date: Status: ADM IN PHONE #: [phone] Exam Date: 07/03/2022 1207 FAX #: [phone] Reason: PRE CABG WORKUP EXAMS: CPT CODE: [id number] DUP EXTRACRANIAL VARUN 68861 (Continued) CC: Los Crawford DO; Gianna LIZARRAGA Technologist: Goran Art Trnscb Date/Time: 07/03/2022 (1254) [email or web address] Orig Print D/T: S:07/03/2022 (1256) Probe: PAGE 2 Signed Report- CT CHEST W/O [id number] 00:00:00 [facility]: SHERRI ARCE : 1940 Sex: M Name: SHERRI ARCE : 1940 Age/S: 81 / M [address] [place] [address] Unit #: [id number] Loc: [place] [address] Phys: Gianna Hoover Acct: [id number] Dis Date: Status: ADM IN PHONE #: [phone] Exam Date: 07/03/2022 1227 FAX #: [phone] Reason: PRE CABG WORKUP EXAMS: CPT CODE: [id number] CT CHEST W/O CONTRAST 05408 PROCEDURE INFORMATION: Exam: CT Chest Without Contrast; Diagnost ic Exam date and time: 07/03/2022 11:54 AM [...] seen. Soft tissues: Unremarkable. IMPRESSION: Small bilateral pleuraleffusions with bibasilar atelectasis. at 1313 Reported and signed by: Ranjan Boo M.D. CC: Los Crawford DO; Gianna LIZARRAGA Technologist:Facundo Ervin RT(R)(CT) CTDI: DLP: Trnscb Date/Time: 07/03/2022 (1313) [email or web address] Orig Print D/T: S: 07/03/2022 (9563) PAGE 1 Signed Report- [facility] MARCY [id number] 00:00:00 [facility] : 1940 Sex: M Name: SHERRI ARCE [facility] [place] : 1940 Age/S: 81 / M [address] [place] [address] Unit #: [id number] Loc: [place] [address] Phys: Gianna Hoover Acct: [id number] Dis Date: Status: ADM IN PHONE #: [phone] Exam Date: 07/03/2022 1207 FAX #: [phone] Reason: VEIN MAPPING AND R/O DVT EXAMS: CPT CODE: [id number] DUP VEIN VARUN 36959 PROCEDURE INFORMATION: Exam: US Duplex Lower Extremity [...] 0.19 mm in the distal calf. Soft ti ssues: Unremarkable. IMPRESSION: 1. The right greater saphenous vein measures 0.24 mm in the upper thigh, 0.22 mm in the mid thigh, 0.20 mm in the lower thigh, 0.17 mm in the upper calf, 0.21 mm in themid calf, and 0.17 mm in the distal calf. 2. The left greater saphenous vein measures 0.27 mm in theupper thigh, 0.29 mm in the mid thigh, 0.30 mm in the lower thigh, 0.23 mm in the upper calf, 0.24 mm in the mid calf, and 0.19 mm in the distal calf. at 1326 Reported and signed by: Arely Brown M.D. CC: Los Crawford DO; Gianna LIZARRAGA Technologist: Goran Art Trntxb Date/Time: 07/03/2022 (1325) StevenMR72 Orig Print D/T: S: 07/03/2022 (1325) Probe: PAGE 1 Signed Report- XR CHEST 1 [id number] 00:00:00 [facility] : 1940 Sex: M FAX: [place] [phone] [place]: St: [facility] FAX: Sarbjit Sherman [phone] Name: SHERRI ARCE [facility] : 1940 Age/S: 81/M [address] [place] [address] Unit #: [id number] Loc: [address] [place] [address] Phys: Sarbjit Mcarthur MD Acct: [id number] Dis Date: Status: ADM IN PHONE #: [phone] Exam Date: 07/02/20222144 FAX #: [phone] Reason: pre-op,cabg EXAMS: CPT CODE: [id number] XR CHEST 1 [id number] PROCEDURE INFORMATION: Exam: XR Chest Exam date [...] DO; Sarbjit Mcarthur MD Technologist: RT Mary(R) Trnscwaqas Date/Time/By: 07/03/2022 (307) : By: [email or web address] Orig Print D/T: S: 07/03/2022 (307) PAGE 1 Signed Report Notes Date/Time Note Provider Source 2022-07-28 19:10:00-00:00 [facility] ([facility]) Nephrology Progress Note REPORT#:[id number] REPORT STATUS: Signed DATE:07/28/22 TIME: 1909 PATIENT: SHERRI ARCE UNIT #: [id number] ROOM/BED: [facility] [place] : 42 AGE: 81 SEX: M ATTEND: Srinath Kaur MD ADM AUTHOR: Evelina Plaza MD * ALL edits or amendments must be made on the el ectronic/computer document * Subjective Chief complaint: Seen after dialysis. Objective General VS/I O: Vital Signs: Date Time Temp Pulse Resp B/P B/P Pulse O2 O2 Flow FiO2 Mean Ox Delivery Rate 07/28 1540 [...] (CORDARONE) 200 MG BID PO (DCD) Ipratropium [place] (ATROVENT) 500 MCG RTQ2H PRN PRN INH (DCD) Lactulose (LACTULOSE) 20 GM DAILY PRN PRN PO (DC D) Cyanocobalamin (Vitamin B-12 500 mcg tab) 500 [...] 17.2 MG BED TIME PO (DCD) Ipratropium [place] (ATROVENT) 500 MCG RTQ4H INH (DCD) Acetaminophen [...] Lidocaine HCl (LIDOCAINE HCL/PF) 0.5 ML ASDIR [place] N I-DERMAL (DCD) Mannitol (Mannitol 20%) 12.5 [...] bladder distention Extremities: no edema, no swelling Neuro/SCREW SUPERVISOR: alert, oriented X 3, normal speech Skin: [...] (Auto) (14.0 - 32.0 %) 13.8 L Smyth % (Auto) (4.8 - 9.0 %) 7.9 Eos % (Auto) (0.3 - 3.7 %) 9.8 H Baso % (Auto) (0.0 - 2.0 %) 0.9 Neut # (Auto) (2.0 - 7.6 x10 3/uL) 7.05 Lymph # (Auto) (1.0 - 3.8 x10 3/uL) 1.45 Smyth # (Auto) (0.1 - 0.8 x10 3/uL) [...] Signed by Evelina Plaza MD on at 9771 RPT #:[id number] END OF REPORT 2022-07-28 18:05:00-00:00 [id number] [address] PATIENT NAME: SHERRI ARCE ADMIT DATE: 07/02/22 ACCOUNT NO: [id number] ROOM NO: [id number] AGE: 81 REPORT TYPE: eECHOCARDIOGRAM REPORT SEX: M ADMITTING PHYSICIAN:Jesus Larson MD ATTENDING PHYSICIAN:Srinath Kaur MD *[address] [address] Limited Transthoracic Echocardiogram Patient: Sherri Arce Study Date: 07/28/2022 BP: 127 / 67 Location: [facility] URN: [id number] : 1940 Age: 81 Height: 72 in / 182.9 cm Gender: M Weight: 204 .6 lb / 93 kg BMI/BSA: 27.8 kg/m 2 / 2.15 m 2 *Ordering Physician: * Liset Ennis MD *Interpreting Physician: * Liset Ennis MD *Biochemical Engineer: * Ayanna Cruz Indications: EVAL EF. Study [...] 1805 PATIENT NAME: SHERRI ARCE 2022-07-28 13:30:00-00:00 [facility] Cardiothoracic Surgery Prog REPORT#:[id number] REPORT STATUS: Signed DATE:07/28/22 TIME: 1330 PATIENT: SHERRI ARCE UNIT #: [id number] ROOM/BED: [place] [address] : [birth year] AGE: 81 SEX: M ATTEND: Srinath Kaur MD ADM AUTHOR: Gianna Hoover * ALL edits or amendments must be made on the [employer]/computer document * General Post-op: day 19 Status [...] no distention Genitourinary: waters Extremities: moves all Neuro/SCREW SUPERVISOR: alert, oriented X 3, normal speech, n o motor deficits Psychiatry: normal affect, normal mood Treatment Prophylaxis Treatment Prophylaxis Drain(s)/tube(s): Drain(s)/tube(s): chest Quality: Trauma Gen Surg Advanced Care Plan 65 or Older Discussed with: patient, CARD REFORMATORY ATTENDANT (SONYA) Discussion included: living will (none), power of employee benefits attorney (none), code status ( full code) VTE Prophylaxis - General VTE prophylaxis initiated: yes Diagnosis, Assessment Plan Hospital course to date: This is a 81-year-old gentleman who presented to an outside hospital with complaints of chest pains while walking at his home on Thursday. He denies any previous history of coronary artery disease or o ther [place]. [facility]. 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 Card: Remains in sinus rhythm. [...] dialysis chair Patient seen with Dr. Allie peña and discussed plan of care with multidisciplinary [...] dialysis ch air Waiting insurance approval for fpc f acility Patient seen and plan reviewed [...] at bedside, Contnue dialysis- Awaiting transfer to [facility]. Stable. Patient seen and examined by Dr Schwarz 07/28/22 Patient restign comfortable. Wounds clean and dry. Sutures are out., Breathing on rroom air 99% Per Case management- denied Patient with family to come pick him up today Okay to [place] home with Family support. Consultants: cardiology, cardiovascular surgery, nephrology Electronically Signed by Gianna Hoover on 0 07/28/22 at 1335 at 1001 RPT #:[id number] END OF REPORT 2022-07-28 12:32:00-00:00 [facility] ([facility] Hospitalist Discharge Summary REPORT#:[id number] REPORT STATUS: Signed DATE:07/28/22 TIME: 1232 PATIENT: SHERRI ARCE UNIT #: [id number] ROOM/BED: 3354-1 : 42 AGE: 81 SEX: M ATTEND: Srinath Kaur MD ADM AUTHOR: Srinath Kaur MD * ALL edits or amendments must be made on the el [employer]/computer document * General Information Free Text General Notes Free Text General Notes: ON DIALYSIS AT NOW, HE'S READY TO GO HOME WIT H HH AND ALREADY HAD DIALYSIS SETUP IN [place]. I SPO KE TO SONYA (REFORMATORY ATTENDANT FOR DR. ENNIS) AND PEDRO TO GO [...] CAHT WITH 3-V CAD AND TRANSFERRED FROM [facility] FOR CABG X5 BY CTS. SEEN BY [...] 30-35%, HAS LIFEVEST AT , D/C HO [place] SINCE DOING WELL WITH HH. patient presented [...] HD MWF, RENAL/UROL SEEN, CONT WATERS, FLOMAX, 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 FROM 7.0 TO 4.3, H O/P DIALYSIS CHAIR SETUP ALREADY IN [place]. No prior Hx of renal disease. hx [...] catheter Extremities: no edema Musculoskeletal: normal inspection Neuro/SCREW SUPERVISOR: normal speech, no motor deficits, no sensory [...] (Auto) (14.0 - 32.0 %) 13.8 L Smyth % (Auto) (4.8 - 9.0 %) 7.9 Eos % (Auto) (0.3 - 3.7 %) 9.8 H Baso % (Auto) (0.0 - 2.0 %) 0.9 Neut # (Auto) (2.0 - 7.6 x10 3/uL) 7.05 Lymph # (Auto) (1.0 - 3.8 x10 3/uL) 1.45 Smyth # (Auto) (0.1 - 0.8 x10 3/uL) [...] Los Crawford DO Discharge to: Home Health [facility] Additional Discharge Routines: Twister Operator Follow -Up, Fluid Restrictions Diet: Cardiac, Fluid [...] 65 or Older Discussed with: patient, CARD REFORMATORY ATTENDANT (SONYA) Current Medications Current medication review: I attest that the foregoing medication list in t he medical record is true, accurate, and complete to the best of my knowled ge. Electronically Signed by Srinath Kaur MD on 07/28 at 1240 RPT #:[id number] END OF REPORT 2022-07-28 11:41:00-00:00 [facility] ([facility]) Cardiology Progress Note REPORT#:[id number] REPORT STATUS: Signed DATE:07/28/22 TIME: 1141 PATIENT: SHERRI ARCE UNIT #: [id number] ROOM[address]BED[address] : 42 AGE: 81 SEX: M ATTEND: Srinath Kaur MD ADM AUTHOR: Sonya Stacy DAY GUARD * ALL edits or amendments must be made on the [employer]/computer document * Subjective Patient reports: No: complaints. [...] HCl (CORDARONE) 200 MG BID PO Ipratropium [place] (ATROVENT) 500 MCG RTQ2H PRN PRN INH [...] TABLET) 17.2 MG BED TIME PO Ipratropium [place] (ATROVENT) 500 MCG RTQ4H INH Acetaminophen (TYLENOL) [...] Lidocaine HCl (LIDOCAINE HCL/PF) 0.5 ML ASDIR [place] N I-DERMAL (CKD) Mannitol (Mannitol 20%) 12.5 [...] normal temperature, no edema Musculoskeletal: normal inspection Neuro/SCREW SUPERVISOR: alert, oriented X 3, normal speech Skin: [...] (Auto) (14.0 - 32.0 %) 13.8 L Smyth % (Auto) (4.8 - 9.0 %) 7.9 Eos % (Auto) (0.3 - 3.7 %) 9.8 H Baso % (Auto) (0.0 - 2.0 %) 0.9 Neut # (Auto) (2.0 - 7.6 x10 3/uL) 7.05 Lymph # (Auto) (1.0 - 3.8 x10 3/uL) 1.45 Smyth # (Auto) (0.1 - 0.8 x10 3/uL) [...] 1.91 Results: labs reviewed, vital signs reviewed, [facility] personally rev'd Telemetry Interpretation: sinus rhythm Diagnosis, Assessment Plan Plan discussed with: patient, admitting physicia n, collaborating MD, nurse Free Text DxA P Notes Free Text DxA P Notes: Mr. Arce is a pleasant 81 y/o M w/ PMHx: HTN, HLD presented to [facility] on 06/28/22 for chest pa in and sob. He was diagnosed NSTEMI. LHC showed multivessel CAD. Transferred to [facility] for CABG. - CAD/NSTEMI s/p CABG CABG [...] Signed by Liset Ennis MD on at 0730 RPT #:[id number] END OF REPORT 2022-07-28 07:19:00-00:00 [facility] ([facility]) Rehab Progress Note REPORT#:[id number] REPORT STATUS: Signed DATE:07/28/22 TIME: 718 PATIENT: SHERRI ARCE UNIT #: [id number] ROOM/BED: [place] [address] : 42 AGE: 81 SEX: M ATTEND: Srinath Kaur MD ADM AUTHOR: Magdaleno Washburn * ALL edits or amendments must be made on the [employer]/computer document * Subjective Chief complaint: Rehab follow-up Doing very well Sitting up in chair Denies pain or sob Pleasant Denies NAIK/N/V/D/CP 14 systems reviewed and neg. except that above. Objective General VS: Vital Signs: Date Time Temp Pulse Resp B/P B/P Pulse O2 O2 F low FiO2 Mean Ox Delivery Rate 07/28 05 98.8 83 18 110/64 79.6 94 07/28 [...] HCl (CORDARONE) 200 MG BID PO Ipratropium [place] (ATROVENT) 500 MCG RTQ2H PRN PRN INH [...] TABLET) 17.2 MG BED TIME PO Ipratropium [place] (ATROVENT) 500 MCG RTQ4H INH Acetaminophen (TYLENOL) [...] Lidocaine HCl (LIDOCAINE HCL/PF) 0.5 ML ASDIR [place] N I-DERMAL (CKD) Mannitol (Mannitol 20%) 12.5 [...] normal, meagan l muscle mass, normal tone Neuro/SCREW SUPERVISOR: alert, oriented X 3, CNII-XII intact Results [...] (Auto) (14.0 - 32.0 %) 13.8 L Smyth % (Auto) (4.8 - 9.0 %) 7.9 Eos % (Auto) (0.3 - 3.7 %) 9.8 H Baso % (Auto) (0.0 - 2.0 %) 0.9 Neut # (Auto) (2.0 - 7.6 x10 3/uL) 7.05 Lymph # (Auto) (1.0 - 3.8 x10 3/uL) 1.45 Smyth # (Auto) (0.1 - 0.8 x10 3/uL) [...] Washburn on 0 07/28/22 at 1433 RPT #:[id number] END OF REPORT 2022-07-27 14:44:00-00:00 [facility] ([facility] Nephrology Progress Note REPORT#:[id number] REPORT STATUS: Signed DATE:07/27/22 TIME: 1444 PATIENT: SHERRI ARCE UNIT #: [id number] ROOM/BED: [place] [address] : 42 AGE: 81 SEX: M ATTEND: Srinath Kaur MD ADM AUTHOR: Evelina Plaza MD * ALL edits or amendments must be made on the [employer]/computer document * Subjective Chief complaint: Feeling okay and has no complaints at this time. Objective Physical Exam Head/eyes: atraumatic, normocephalic ENT: moist mucous membranes, normal nose Neck: non-tender, no JVD Cardiovascular: regular rate and rhythm Respiratory: clear to auscultation Abdomen: non-tender, soft Genitourinary: no bladder distention Extremities: no edema, no swelling Neuro/SCREW SUPERVISOR: alert, oriented X 3, normal speech Skin: [...] Evelina Plaza MD on at 1910 RPT #:[id number] END OF REPORT 2022-07-27 14:06:00-00:00 [facility] Hospitalist Progress Note REPORT#:[id number] REPORT STATUS: Signed DATE:07/27/22 TIME: 1406 PATIENT: SHERRI ARCE UNIT #: [id number] ROOM/BED: [place] [address] : 42 AGE: 81 SEX: M ATTEND: Jesus Larson MD ADM AUTHOR: Jesus Larson MD * ALL edits or amendments must be made on the el [employer]/computer document * Subjective Chief complaint: pt now [...] 69.3 94 07/27 0103 96 Room air 21 07/26 2253 98.1 88 18 115/61 79.2 94 07/26 2034 96 Room air 21 07/26 1920 98.2 83 18 111/62 78.6 [...] catheter Extremities: no edema Musculoskeletal: normal inspection Neuro/SCREW SUPERVISOR: normal speech, no motor deficits, no sensory [...] AC 07/27 PO 08/15 0859 0839 Ipratropium [place] 500 MCG RTQ2H PRN PRN 07/11 182 AC 07/26 INH 08/10 1820 2034 Lactulose [...] Atorvastatin Calcium 40 MG 07/09 2100 AC 0 07/26 PO 08/08 2058 211 Clopidogrel Bisulfate 75 MG DAILY 07/09 09 AC 07/27 PO 08/08 0859 0839 Polyethylene Glycol 17 GM DAILY 07/09 09 AC PO 08/08 0859 1008 Pantoprazole 40 MG DAILY@0607/09 06 AC 07/09 9 PO 08/08 0559 0603 Aspirin 81 MG DAILY 07/09 0020 AC 07/27 PO 08/08 0019 0839 Docusate Sodium 100 MG BID 07/08 2099 AC 07/26 PO 08/07 205 0904 Sennosides 17.2 MG BEDTIME 07/08 2100 AC 07/24 PO 08/07 205 2048 Ipratropium [place] 500 MCG RTQ4H 07/08 1900 AC 07/27 INH 08/07 1859 1224 Acetaminophen 650 MG Q4H PRN PRN 07/08 1830 AC 0 2/16 PO 08/07 1829 1005 Acetaminophen 650 MG Q4H PRN PRN 07/08 1830 AC RECTAL 08/07 1829 Dextrose/Water 125 ML ASDIR PRN 07/08 1830 CKD IV 08/07 1829 Dextrose/Water 250 ML ASDIR PRN 07/08 1830 CKD IV 08/07 1829 Glucagon 1 MG ASDIR PRN 07/08 1830 AC IM 08/07 1829 Magnesium Sulfate 100 ML ASDIR PRN 07/08 1830 AC IV 08/07 182 Magnesium Sulfate 50 ML ASDIR PRN 07/08 1830 AC 18 IV 08/07 1829 0904 Magnesium Sulfate/ 100 [...] 1447 Tamsulosin HCl 0.4 MG BEDTIME 07/02 2145 AC 07/09 8 PO 08/01 214 2116 Laboratory Tests: 07/27 07/27 0415 0415 Chemistry [...] (Auto) (14.0 - 32.0 %) 10.3 L Smyth % (Auto) (4.8 - 9.0 %) 8.3 Eos % (Auto) (0.3 - 3.7 %) 9.4 H Baso % (Auto) (0.0 - 2.0 %) 0.7 Neut # (Auto) (2.0 - 7.6 x10 3/uL) 7.69 H Lymph # (Auto) (1.0 - 3.8 x10 3/uL) 1.12 Smyth # (Auto) (0.1 - 0.8 x10 3/uL) [...] 0703 Report Impression - Status: SIGNED Entered: 07/27/2022 1596 IMPRESSION: Bibasilar opacities with small bilateral pleural effusions. Impression By: [email or web address] - Noreen Mace Treatment Prophylaxis Treatment Prophylaxis Drain(s)/tube(s): Drain(s)/tube(s): chest [...] - Proximal 80%,mid 80-90%, Distal 70% and OM 60% RCA - large dominant with proximal [...] WITH DIALYSIS ACCESS, CONT WATERS , FLOMAX, 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 FROM 7.0 TO 4.3 No prior Hx [...] Discussion included: living will (none), power of employee benefits attorney (none), code status ( full code) Electronically Signed by Jesus Larson MD on 07/09 02/28 at 1408 RPT #:[id number] END OF REPORT 2022-07-27 11:52:00-00:[address] [facility] Cardiothoracic Surgery Prog REPORT#:[id number] REPORT STATUS: Signed DATE:07/27/22 TIME: 1152 PATIENT: SHERRI ARCE UNIT #: [id number] ROOM/BED: [place] [address] : 42 AGE: 81 SEX: M ATTEND: Srinath Kaur MD ADM AUTHOR: Gianna Hoover * ALL edits or amendments must be made on the el [employer]/computer document * General Post-op: day 18 Status [...] no distention Genitourinary: waters Extremities: moves all Neuro/SCREW SUPERVISOR: alert, oriented X 3, normal speech, n o motor deficits Psychiatry: normal affect, normal mood Treatment Prophylaxis Treatment Prophylaxis Drain(s)/tube(s): Drain(s)/tube(s): chest Quality: Trauma Gen Surg Advanced Care Plan 65 or Older Discussed with: patient Discussion included: living will (none), power of employee benefits attorney (none), code status ( full code) VTE Prophylaxis - General VTE prophylaxis initiated: yes Diagnosis, Assessment Plan Hospital course to date: This is a 81-year-old gentleman who presented to an outside hospital with complaints of chest pains while walking at his home on Thursday. He denies any previous history of coronary artery disease or o ther LA. [facility] He was found to have a urinary [...] obtain echo,carotids. 2) CLAUDETTE Started dialysis on MON, TUES Creatine 7.3 Renal consulted. 3) BPH- Urinary [...] Schwarz 07/09/22 POD 1 CABG x 5 (IMSTRY-LAD, SVG-Ladonna, SVG-OM1< SVG-OM3, S VG-PDA), RC ESPINOZA [...] p dialysis cath, Re-evaluate on Thursday if mcfp dialysis needed. Card: Remains in sinus rhythm. [...] back on suction to clear pneumo, CT boni 200cc th is AM. on suction. Labs [...] dialysis chair Patient seen with Dr. Allie peña and discussed plan of care with multidisciplinary [...] dialysis ch air Waiting insurance approval for fpc f acility Patient seen and plan reviewed [...] at bedside, Contnue dialysis- Awaiting transfer to [facility]. Stable. Patient seen and examined by Dr Schwarz Consultants: nephrology Electronically Signed by Gianna Hoover on 0 07/27/22 at 1154 at 1000 RPT #:[id number] END OF REPORT 2022-07-27 07:04:00-00:00 [facility]L [facility] ([facility] Rehab Progress Note REPORT#:[id number] REPORT STATUS: Signed DATE:07/27/22 TIME: 07 PATIENT: SHERRI ARCE UNIT #: [id number] ROOM/BED: [place] [address] : 42 AGE: 81 SEX: M ATTEND: Jesus Larson MD ADM AUTHOR: Magdaleno Washburn * ALL edits or amendments must be made on the [employer] document * Subjective Chief complaint: Rehab follow-up [...] Room air 07/26 0832 97 Room air 07/26 0811 97.7 87 12 115/62 79.6 97 Room air PATIENT WEIGHT: Weight (lb): 182 Weight (oz): 15.74 Weight (kg): 83.000 Medications: Active Meds + DC'd Last 24 Hrs Midodrine (PROAMATINE) 5 MG 0900,1300,1700 PRN P O Sodium Chloride (SODIUM CHLORIDE) 10 ML ASDIR IV Amiodarone HCl (CORDARONE) 200 MG BID PO Ipratropium [place] (ATROVENT) 500 MCG RTQ2H PRN PRN INH [...] TABLET) 17.2 MG BED TIME PO Ipratropium [place] (ATROVENT) 500 MCG RTQ4H INH Acetaminophen (TYLENOL) [...] Lidocaine HCl (LIDOCAINE HCL/PF) 0.5 ML ASDIR [place] N I-DERMAL (CKD) Mannitol (Mannitol 20%) 12.5 [...] normal, meagan l muscle mass, normal tone Neuro/SCREW SUPERVISOR: alert, oriented X 3, CNII-XII intact Results [...] - 32.0 %) 10.4 L 8.9 L Smyth % (Auto) (4.8 - 9.0 %) 7.5 8.6 Eos % (Auto) (0.3 - 3.7 %) 10.7 H 11.4 H Baso % (Auto) (0.0 - 2.0 %) 0.7 0.9 Neut # (Auto) (2.0 - 7.6 x10 3/uL) 7.52 7.38 Lymph # (Auto) (1.0 - 3.8 x10 3/uL) 1.12 0.95 L Smyth # (Auto) (0.1 - 0.8 x10 3/uL) [...] effusions similar to prior study. Impression By: [email or web address] [...] Washburn on 0 07/28/22 at 0446 RPT #:[id number] END OF REPORT 2022-07-26 13:36:00-00:00 [facility] Cardiothoracic Surgery Prog REPORT#:[id number] REPORT STATUS: Signed DATE:07/26/22 TIME: 1336 PATIENT: SHERRI ARCE UNIT #: [id number] ROOM/BED: 3354-1 : 42 AGE: 81 SEX: M ATTEND: Srinath Kaur MD ADM AUTHOR: Gianna Hoover * ALL edits or amendments must be made on the el [employer]/computer document * General Post-op: day 17 Status [...] no distention Genitourinary: waters Extremities: moves all Neuro/SCREW SUPERVISOR: alert, oriented X 3, normal speech, n o motor deficits Psychiatry: normal affect, normal mood Treatment Prophylaxis Treatment Prophylaxis Drain(s)/tube(s): Drain(s)/tube(s): chest Quality: Trauma Gen Surg Advanced Care Plan 65 or Older Discussed with: patient Discussion included: living will (none), power of employee benefits attorney (none), code status ( full code) VTE Prophylaxis - General VTE prophylaxis initiated: yes Diagnosis, Assessment Plan Hospital course to date: This is a 81-year-old gentleman who presented to an outside hospital with complaints of chest pains while walking at his home on Thursday. He denies any previous history of coronary artery disease or o ther LA. He was [facility] He was found to have a urinary [...] p dialysis cath, Re-evaluate on Thursday if mcfp dialysis needed. Card: Remains in sinus rhythm. [...] dialysis chair Patient seen with Dr. Allie peña and discussed plan of care with multidisciplinary [...] discussed with multidisciplinary david portillo and Dr. Schawrz. 07/19 No new events Echocardiogram done, report pending HD per nephrology- to setup outpt dialysis ch air Waiting insurance approval for [facility] Patient seen and plan reviewed with Dr. [...] 0 07/26/22 at 1338 at 1000 RPT #:[id number] END OF REPORT 2022-07-26 13:20:00-00:[address] [facility] Hospitalist Progress Note REPORT#:[id number] REPORT STATUS: Signed DATE:07/26/22 TIME: 1320 PATIENT: SHERRI ARCE UNIT #: [id number] ROOM/BED: [place] [address] : 42 AGE: 81 SEX: M ATTEND: Jesus Larson MD ADM AUTHOR: Jesus Larson MD * ALL edits or amendments must be made on the [employer]/computer document * Subjective Chief complaint: no cp. [...] 86 18 129/67 87 96 Room air 02/17 1952 99 Room air 07/25 1636 97.5 [...] catheter Extremities: no edema Musculoskeletal: normal inspection Neuro/SCREW SUPERVISOR: normal speech, no motor deficits, no sensory deficits Skin: intact, normal color, no rash Psychiatry: normal affect Results Radiology data: Laboratory Tests 07/26/22 0400: [Embedded Image Not Available] 07/25/22 0446: [Embedded Image Not Available] Current Medications Sig/Earl Start time Last Medication Dose Route Stop Time Status Admin Midodrine 5 MG 0900,1300,1700 PRN 07/17 2100 AC 07/24 PO 08/16 2059 1004 Sodium Chloride 10 ML ASDIR 07/17 1030 AC IV 08/16 1029 Amiodarone HCl 200 MG BID 07/16 09 AC 07/26 PO 08/15 0859 0904 Ipratropium [place] 500 MCG RTQ2H PRN PRN 07/11 1821 AC 07/10 INH 08/10 1820 1302 Lactulose 20 GM DAILY PRN PRN 07/11 1245 AC 3 PO 08/10 1244 1411 Cyanocobalamin 500 MCG DAILY 07/11 0900 AC 07/26 PO 08/10 0859 0904 Ferrous Sulfate 325 MG DAILY 07/11 09 AC 07/26 PO 08/10 0859 0904 Bisacodyl 10 MG ONCE PRN 07/10 1200 AC 07/11 RECTAL 08/09 1159 0928 Atorvastatin Calcium 40 MG 2100 07/09 2100 AC PO 08/08 Clopidogrel Bisulfate 75 MG DAILY 07/09 09 AC 07/26 PO 08/08 0859 0904 Polyethylene Glycol 17 GM DAILY 07/09 09 AC PO 08/08 0859 1008 Pantoprazole 40 MG DAILY@0600 07/09 0600 AC 07/09 8 PO 08/08 0559 0622 Aspirin 81 MG DAILY 07/09 002 AC 07/26 PO 08/08 0019 0904 Docusate Sodium 100 MG BID 07/08 2100 AC 07/26 PO 08/07 2058 0904 Sennosides 17.2 MG BEDTIME 07/08 2099 AC 07/24 PO 08/07 Ipratropium [place] 500 MCG RTQ4H 07/08 1900 AC 07/26 [...] (Auto) (14.0 - 32.0 %) 10.4 L Smyth % (Auto) (4.8 - 9.0 %) 7.5 Eos % (Auto) (0.3 - 3.7 %) 10.7 H Baso % (Auto) (0.0 - 2.0 %) 0.7 Neut # (Auto) (2.0 - 7.6 x10 3/uL) 7.52 Lymph # (Auto) (1.0 - 3.8 x10 3/uL) 1.12 Smyth # (Auto) (0.1 - 0.8 x10 3/uL) [...] WITH DIALYSIS ACCESS, CONT WATERS , FLOMAX, 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 FROM 7.0 TO 4.3 No prior Hx [...] Discussion included: living will (none), power of employee benefits attorney (none), code status ( full code) Electronically Signed by Jesus Larson MD on 07/09 01/28 at 1328 RPT #:[id number] END OF REPORT 2022-07-26 06:56:00-00:00 [facility] ([facility]) Rehab Progress Note REPORT#:[id number] REPORT STATUS: Signed DATE:07/26/22 TIME: 06 PATIENT: SHERRI ARCE UNIT #: [id number] ROOM[facility]BED: [facility] : 42 AGE: 81 SEX: M ATTEND: Jesus Larson MD ADM AUTHOR: Magdaleno Washburn * ALL edits or amendments must be made on the [employer] document * Subjective Chief complaint: Rehab follow-up [...] HCl (CORDARONE) 200 MG BID PO Ipratropium [place] (ATROVENT) 500 MCG RTQ2H PRN PRN INH [...] TABLET) 17.2 MG BED TIME PO Ipratropium [place] (ATROVENT) 500 MCG RTQ4H INH Acetaminophen (TYLENOL) [...] Lidocaine HCl (LIDOCAINE HCL/PF) 0.5 ML ASDIR KY N I-DERMAL (CKD) Mannitol (Mannitol 20%) 12.5 [...] or Set-up Effects of Treatment: Cardio tolerance improved Function Improved Gait quality improved Post [place] Precautions: In Bed, rails Up Call Light in Reach Nursing Notified Review Plan of Care: Yes PT charges: Gait Training [id number] Gait Cmt: PT PERFORMING AMB NO AD [...] . BED MOBILITY: Yes Rolling Right/Left: Modified [place] Supine to Sit: Modified [place] Sit to Supine: Modified [place] TRANSFERS: Yes Bed to/from chair: Modified [place] Sit to/from stand: Modified [place] Physical Exam General appearance: alert, awake Psych: alert, oriented x 3 HEENT: anicteric, sclera clear Neck: supple, no JVD Cardiovascular: regular rate rhythm, S1/S2 Respiratory: aerating well, clear bilaterally Abdomen: bowel sounds present, non-distended, so ft Skin: intact, no rash Musculoskeletal - general: Musculoskeletal - general: joints normal, meagan l muscle mass, normal tone Neuro/SCREW SUPERVISOR: alert, oriented X 3, CNII-XII intact Results [...] (Auto) (14.0 - 32.0 %) 10.4 L Smyth % (Auto) (4.8 - 9.0 %) 7.5 Eos % (Auto) (0.3 - 3.7 %) 10.7 H Baso % (Auto) (0.0 - 2.0 %) 0.7 Neut # (Auto) (2.0 - 7.6 x10 3/uL) 7.52 Lymph # (Auto) (1.0 - 3.8 x10 3/uL) 1.12 Smyth # (Auto) (0.1 - 0.8 x10 3/uL) [...] Washburn on 0 07/26/22 at 1949 RPT #:[id number] END OF REPORT 2022-07-25 15:40:[facility]-00[facility]00 [facility] REPORT#:[id number] REPORT STATUS: Signed DATE:07/25/22 TIME: 1540 PATIENT: SHERRI ARCE UNIT #: [id number] ROOM/BED: [place] [address] : 42 AGE: 81 SEX: M ATTEND: Star Crawford DO ADM AUTHOR: Los Crawford DO * ALL edits or amendments must be made on the [employer]/computer document * Subjective Chief complaint: No new complaints Objective General VS/I O: Vital Signs: Date Time Temp Pulse Resp B/P B/P Pulse O2 O2 Flow FiO2 Mean Ox Delivery Rate 07/25 1334 [...] catheter Extremities: no edema Musculoskeletal: normal inspection Neuro/SCREW SUPERVISOR: normal speech, no motor deficits, no sensory [...] WITH DIALYSIS ACCESS, CONT WATERS , FLOMAX, 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 FROM 7.0 TO 4.3 No prior Hx [...] awaiting SNF, discussed with case managemen t Quality: Gen Med Crit Care VTE Prophylaxis VTE prophylaxis initiated: yes Advanced Care Plan 65 or Older Discussed with: patient Discussion included: living will (none), power of employee benefits attorney (none), code status ( full code) at 1541 RPT #:[id number] END OF REPORT 2022-07-25 14:58:00-00:[address] [facility] Cardiothoracic Surgery Prog REPORT#:[id number] REPORT STATUS: Signed DATE:07/25/22 TIME: 1457 PATIENT: SHERRI ARCE UNIT #: [id number] ROOM/BED: [place] [address] : 42 AGE: 81 SEX: M ATTEND: Jesus Larson MD ADM AUTHOR: Gianna Hoover * ALL edits or amendments must be made on the [employer]/computer document * General Post-op: day 16 Status [...] no distention Genitourinary: waters Extremities: moves all Neuro/SCREW SUPERVISOR: alert, oriented X 3, normal speech, n o motor deficits Psychiatry: normal affect, normal mood Treatment Prophylaxis Treatment Prophylaxis Drain(s)/tube(s): Drain(s)/tube(s): chest Quality: Trauma Gen Surg Advanced Care Plan 65 or Older Discussed with: patient Discussion included: living will (none), power of employee benefits attorney (none), code status ( full code) VTE Prophylaxis - General VTE prophylaxis initiated: yes Diagnosis, Assessment Plan Hospital course to date: This is a 81-year-old gentleman who presented to an outside hospital with complaints of chest pains while walking at his home on Thursday. He denies any previous history of coronary artery disease or o ther LA. [facility] He was found to have a urinary tract infection with urinary retention and acu te kidney. He was started on dialysis via a [...] p dialysis cath, Re-evaluate on Thursday if assistant terminal manager dialysis needed. Card: Remains in sinus rhythm. [...] dialysis chair Patient seen with Dr. Allie peña and discussed plan of care with multidisciplinary [...] dialysis ch air Waiting insurance approval for [facility] Patient seen and plan reviewed with Dr. Schwarz 07/20 Remains in a stable condition. Echocardiogram showed LVEF 30 to 34%, trivial pe ricardial effusion HD schedule per nephrology Awaiting insurance approval for SNF 07/21 No complaints today HD schedule per nephrology Awaiting insurance approval for [facility] Encourage I-S and mobilization 07/22 Remains in [...] 0 07/25/22 at 1501 at 1008 RPT #:[id number] END OF REPORT 2022-07-25 10:09:00-00:00 [facility] ([facility] Nephrology Progress Note REPORT#:[id number] REPORT STATUS: Signed DATE:07/25/22 TIME: 1009 PATIENT: SHERRI ARCE UNIT #: [id number] ROOM/BED: [place] [address] : 42 AGE: 81 SEX: M ATTEND: Maryam Crawford DO ADM AUTHOR: Evelina Plaza MD * ALL edits or amendments must be made on the [employer] document * Subjective Chief complaint: Feeling okay and has no complaints at this time. Objective General Medications Active Meds + DC'd Last 24 Hrs Midodrine (PROAMATINE) 5 MG 0900,1300,1700 PRN P O Sodium Chloride (SODIUM CHLORIDE) 10 ML ASDIR IV Amiodarone HCl (CORDARONE) 200 MG BID PO Ipratropium [place] (ATROVENT) 500 MCG RTQ2H PRN PRN INH [...] TABLET) 17.2 MG BED TIME PO Ipratropium [place] (ATROVENT) 500 MCG RTQ4H INH Acetaminophen (TYLENOL) [...] Lidocaine HCl (LIDOCAINE HCL/PF) 0.5 ML ASDIR KY N I-DERMAL (CKD) Mannitol (Mannitol 20%) 12.5 [...] bladder distention Extremities: no edema, no swelling Neuro/SCREW SUPERVISOR: alert, oriented X 3, normal speech Skin: [...] (Auto) (14.0 - 32.0 %) 8.9 L Smyth % (Auto) (4.8 - 9.0 %) 8.6 Eos % (Auto) (0.3 - 3.7 %) 11.4 H Baso % (Auto) (0.0 - 2.0 %) 0.9 Neut # (Auto) (2.0 - 7.6 x10 3/uL) 7.38 Lymph # (Auto) (1.0 - 3.8 x10 3/uL) 0.95 L Smyth # (Auto) (0.1 - 0.8 x10 3/uL) [...] (0.0 - 0.1 x10 3/uL) 0. 00 Treatment Prophylaxis Treatment Prophylaxis Drain(s)/tube(s): Drain(s)/tube(s): chest [...] Evelina Plaza MD on at 1646 RPT #:[id number] END OF REPORT 2022-07-25 09:51:00-00:00 [facility] Cardiology Progress Note REPORT#:[id number] REPORT STATUS: Signed DATE:07/25/22 TIME: 950 PATIENT: SHERRI ARCE UNIT #: [id number] ROOM/BED: [place] [address] : 42 AGE: 81 SEX: M ATTEND: Jesus Larson MD ADM AUTHOR: Sonya Stacy CNP * ALL edits or amendments must be made on the el [employer]/computer document * Subjective Patient reports: No: complaints. [...] HCl (CORDARONE) 200 MG BID PO Ipratropium [place] (ATROVENT) 500 MCG RTQ2H PRN PRN INH [...] TABLET) 17.2 MG BED TIME PO Ipratropium [place] (ATROVENT) 500 MCG RTQ4H INH Acetaminophen (TYLENOL) [...] Lidocaine HCl (LIDOCAINE HCL/PF) 0.5 ML ASDIR KY N I-DERMAL (CKD) Mannitol (Mannitol 20%) 12.5 [...] normal temperature, no edema Musculoskeletal: normal inspection Neuro/SCREW SUPERVISOR: alert, oriented X 3, normal speech Skin: [...] (Auto) (14.0 - 32.0 %) 8.9 L Smyth % (Auto) (4.8 - 9.0 %) 8.6 Eos % (Auto) (0.3 - 3.7 %) 11.4 H Baso % (Auto) (0.0 - 2.0 %) 0.9 Neut # (Auto) (2.0 - 7.6 x10 3/uL) 7.38 Lymph # (Auto) (1.0 - 3.8 x10 3/uL) 0.95 L Smyth # (Auto) (0.1 - 0.8 x10 3/uL) [...] 1.87 Results: labs reviewed, vital signs reviewed, [facility] personally rev'd Telemetry Interpretation: sinus rhythm Diagnosis, Assessment Plan Problem List/A P: 1. HTN (hypertension) 2. CLAUDETTE (acute kidney injury) 3. CAD (coronary artery disease) 4. Dyslipidemia 5. BPH (benign prostatic hyperplasia) Consultants: nephrology Plan discussed with: patient, nurse Free Text DxA P Notes Free Text DxA P Notes: Mr. Arce is a pleasant 81 y/o M w/ PMHx: HTN, HLD presented to [facility] on 06/28/22 for chest pa in and sob. He was diagnosed NSTEMI. LHC showed multivessel CAD. Transferred to [facility] for CABG. - CAD/NSTEMI s/p CABG CABG [...] Signed by Liset Ennis MD on at 0818 RPT #:[id number] END OF REPORT 2022-07-25 07:15:00-00:00 [facility] ([facility]) Rehab Progress Note REPORT#:[id number] REPORT STATUS: Signed DATE:07/25/22 TIME: 714 PATIENT: SHERRI ARCE UNIT #: [id number] ROOM[place]BED: [facility] : 42 AGE: 81 SEX: M ATTEND: Maryam Crawford DO ADM AUTHOR: Magdaleno Washburn * ALL edits or amendments must be made on the [employer] document * Subjective Chief complaint: Rehab follow-up [...] HCl (CORDARONE) 200 MG BID PO Ipratropium [place] (ATROVENT) 500 MCG RTQ2H PRN PRN INH [...] TABLET) 17.2 MG BED TIME PO Ipratropium [place] (ATROVENT) 500 MCG RTQ4H INH Acetaminophen (TYLENOL) [...] Lidocaine HCl (LIDOCAINE HCL/PF) 0.5 ML ASDIR KY N I-DERMAL (CKD) Mannitol (Mannitol 20%) 12.5 [...] normal, meagan l muscle mass, normal tone Neuro/SCREW SUPERVISOR: alert, oriented X 3, CNII-XII intact Results [...] - 32.0 %) 9.8 L 8.3 L Smyth % (Auto) (4.8 - 9.0 %) 8.7 8.2 Eos % (Auto) (0.3 - 3.7 %) 11.0 H 10.8 H Baso % (Auto) (0.0 - 2.0 %) 1.0 0.8 Neut # (Auto) (2.0 - 7.6 x10 3/uL) 7.17 8.26 H Lymph # (Auto) (1.0 - 3.8 x10 3/uL) 1.02 0.96 L Smyth # (Auto) (0.1 - 0.8 x10 3/uL) [...] Magdaleno Washburn on 0 07/25/22 at 1752 RPT #:[id number] END OF REPORT 2022-07-24 19:46:00-00:[address] [facility] Cardiothoracic Surgery Prog REPORT#:[id number] REPORT STATUS: Signed DATE:07/24/22 TIME: 1945 PATIENT: SHERRI ARCE UNIT #: [id number] ROOM/BED: [place] [address] : 42 AGE: 81 SEX: M ATTEND: Srinath Kaur MD ADM AUTHOR: Rosalind Toribio * ALL edits or amendments must be made on the [employer]/computer document * General Post-op: day 10 Status [...] no distention Genitourinary: waters Extremities: moves all Neuro/SCREW SUPERVISOR: alert, oriented X 3, normal speech, n o motor deficits Psychiatry: normal affect, normal mood Current Medications Medications: Active Meds + DC'd Last 24 Hrs Midodrine (PROAMATINE) 5 MG 0900,1300,1700 PRN P O Sodium Chloride (SODIUM CHLORIDE) 10 ML ASDIR IV Amiodarone HCl (CORDARONE) 200 MG BID PO Ipratropium [place] (ATROVENT) 500 MCG RTQ2H PRN PRN INH [...] TABLET) 17.2 MG BED TIME PO Ipratropium [place] (ATROVENT) 500 MCG RTQ4H INH Acetaminophen (TYLENOL) [...] Lidocaine HCl (LIDOCAINE HCL/PF) 0.5 ML ASDIR KY N I-DERMAL (CKD) Mannitol (Mannitol 20%) 12.5 [...] (Auto) (14.0 - 32.0 %) 9.8 L Smyth % (Auto) (4.8 - 9.0 %) 8.7 Eos % (Auto) (0.3 - 3.7 %) 11.0 H Baso % (Auto) (0.0 - 2.0 %) 1.0 Neut # (Auto) (2.0 - 7.6 x10 3/uL) 7.17 Lymph # (Auto) (1.0 - 3.8 x10 3/uL) 1.02 Smyth # (Auto) (0.1 - 0.8 x10 3/uL) [...] of coronary artery disease or o ther LA. [facility]. 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 Card: Remains in sinus rhythm. [...] dialysis chair Patient seen with Dr. Allie peña and discussed plan of care with multidisciplinary [...] dialysis ch air Waiting insurance approval for fpc f acility Patient seen and plan reviewed [...] Awaiting placement at 1947 at 1000 RPT #:[id number] END OF REPORT 2022-07-24 18:29:00-00:00 [facility] ([facility]) Rehab Progress Note REPORT#:[id number] REPORT STATUS: Signed DATE:07/24/22 TIME: 1828 PATIENT: SHERRI ARCE UNIT #: [id number] ROOM/BED: [place] [address] : 42 AGE: 81 SEX: M ATTEND: Srinath Kaur MD ADM AUTHOR: Florencia Washburn NP * ALL edits or amendments must be made on the [employer]/computer document * Subjective Chief complaint: Rehab follow-up [...] HCl (CORDARONE) 200 MG BID PO Ipratropium [place] (ATROVENT) 500 MCG RTQ2H PRN PRN INH [...] TABLET) 17.2 MG BED TIME PO Ipratropium [place] (ATROVENT) 500 MCG RTQ4H INH Acetaminophen (TYLENOL) [...] Lidocaine HCl (LIDOCAINE HCL/PF) 0.5 ML ASDIR [place] N I-DERMAL (CKD) Mannitol (Mannitol 20%) 12.5 [...] normal, meagan l muscle mass, normal tone Neuro/SCREW SUPERVISOR: alert, oriented X 3, CNII-XII intact Diagnosis, [...] disc ussed with patient. at 1940 RPT #:[id number] END OF REPORT 2022-07-24 12:00:00-00:00 [facility] ([facility] Hospitalist Progress Note REPORT#:[id number] REPORT STATUS: Signed DATE:07/24/22 TIME: 1200 PATIENT: SHERRI ARCE UNIT #: [id number] ROOM/BED: [place] [address] : 42 AGE: 81 SEX: M ATTEND: Maryam Crawford DO ADM AUTHOR: Jesus Larson MD * ALL edits or amendments must be made on the [employer]/computer document * Subjective Chief complaint: no cp. [...] catheter Extremities: no edema Musculoskeletal: normal inspection Neuro/SCREW SUPERVISOR: normal speech, no motor deficits, no sensory [...] HCl 200 MG BID 07/16 899 AC 07/24 PO 08/15 0859 1005 Ipratropium [place] 500 MCG RTQ2H PRN PRN 07/11 1821 AC 07/10 INH 08/10 1820 1302 Lactulose 20 GM DAILY PRN PRN 07/11 1245 AC 3 PO 08/10 1244 1411 Cyanocobalamin 500 MCG DAILY 07/11 899 AC 07/24 PO 08/10 0859 1004 Ferrous Sulfate 325 MG DAILY 07/11 09 AC 07/24 PO 08/10 0859 1005 Bisacodyl 10 MG ONCE PRN 07/10 1200 AC 07/11 RECTAL 08/09 1159 0928 Atorvastatin Calcium 40 MG 07/09 AC 0 07/23 PO 08/08 2059 2044 Clopidogrel Bisulfate 75 MG DAILY 07/09 09 AC 07/24 PO 08/08 0859 1004 Polyethylene Glycol 17 GM DAILY 07/09 09 AC PO 08/08 0859 1008 Pantoprazole 40 MG DAILY@0600 07/09 0600 AC 07/09 6 PO 08/08 0559 0610 Aspirin 81 MG DAILY 07/09 0020 AC 07/24 PO 08/08 0019 1004 Docusate Sodium 100 MG BID 07/08 2099 AC 07/24 PO 08/07 205 1008 Sennosides 17.2 MG BEDTIME 07/08 2100 AC 07/22 PO 08/07 Ipratropium [place] 500 MCG RTQ4H 07/08 1900 AC 07/24 [...] 0.4 MG BEDTIME 07/02 2144 AC 07/09 5 PO 08/01 Laboratory Tests: 07/24 07/24 0449 [...] (Auto) (14.0 - 32.0 %) 9.8 L Smyth % (Auto) (4.8 - 9.0 %) 8.7 Eos % (Auto) (0.3 - 3.7 %) 11.0 H Baso % (Auto) (0.0 - 2.0 %) 1.0 Neut # (Auto) (2.0 - 7.6 x10 3/uL) 7.17 Lymph # (Auto) (1.0 - 3.8 x10 3/uL) 1.02 Smyth # (Auto) (0.1 - 0.8 x10 3/uL) [...] (0.0 - 0.1 x10 3/uL) 0.0 0 Microbiology: 07/24 0500 NASAL: MRSA DNA Surveillance [...] WITH DIALYSIS ACCESS, CONT WATERS , FLOMAX, 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 FROM 7.0 TO 4.3 No prior Hx [...] Discussion included: living will (none), power of employee benefits attorney (none), code status ( full code) Electronically Signed by Jesus Larson MD on 07/09 11/28 at 1201 RPT #:[id number] END OF REPORT 2022-07-24 11:48:00-00:00 [facility] ([facility]) Nephrology Progress Note REPORT#:[id number] REPORT STATUS: Signed DATE:07/24/22 TIME: 1148 PATIENT: SHERRI ARCE UNIT #: [id number] ROOM/BED: [place] [address] : 42 AGE: 81 SEX: M ATTEND: Maryam Crawford DO ADM AUTHOR: Evelina Plaza MD * ALL edits or amendments must be made on the el [employer]/computer document * Subjective Chief complaint: Feeling okay and has no complaints at this time. Objective General VS/I O: Vital Signs: Date Time Temp Pulse Resp B/P B/P Pulse O2 O2 Flow FiO2 Mean Ox Delivery Rate 07/24 1244 98 Room air 07/24 1209 [...] HCl (CORDARONE) 200 MG BID PO Ipratropium [place] (ATROVENT) 500 MCG RTQ2H KY N PRN INH Lactulose (LACTULOSE) 20 GM DAILY [...] TABLET) 17.2 MG BED TIME PO Ipratropium [place] (ATROVENT) 500 MCG RTQ4H INH Acetaminophen (TYLENOL) [...] Lidocaine HCl (LIDOCAINE HCL/PF) 0.5 ML ASDIR KY N I-DERMAL (CKD) Mannitol (Mannitol 20%) 12.5 [...] bladder distention Extremities: no edema, no swelling Neuro/SCREW SUPERVISOR: alert, oriented X 3, normal speech Skin: [...] (Auto) (14.0 - 32.0 %) 9.8 L Smyth % (Auto) (4.8 - 9.0 %) 8.7 Eos % (Auto) (0.3 - 3.7 %) 11.0 H Baso % (Auto) (0.0 - 2.0 %) 1.0 Neut # (Auto) (2.0 - 7.6 x10 3/uL) 7.17 Lymph # (Auto) (1.0 - 3.8 x10 3/uL) 1.02 Smyth # (Auto) (0.1 - 0.8 x10 3/uL) [...] Evelina Plaza MD on at 1409 RPT #:[id number] END OF REPORT 2022-07-24 08:38:00-00:00 [facility] Cardiology Progress Note REPORT#:[id number] REPORT STATUS: Signed DATE:07/24/22 TIME: 837 PATIENT: SHERRI ARCE UNIT #: [id number] ROOM/BED: [place] [address] : 42 AGE: 81 SEX: M ATTEND: Jesus Larson MD ADM AUTHOR: Jyoti Browning NP * ALL edits or amendments must be made on the [employer]/computer document * Subjective Chief complaint: Doing okay. [...] AC 07/24 PO 08/15 0859 1005 Ipratropium [place] 500 MCG RTQ2H PRN PRN 07/11 1821 [...] MG 2100 07/09 2100 AC PO 08/08 205 2044 Clopidogrel Bisulfate 75 MG DAILY 07/09 09 AC 07/24 PO 08/08 0859 1004 Polyethylene Glycol 17 GM DAILY 07/09 09 AC PO 08/08 0859 1008 Pantoprazole 40 MG DAILY@00 07/09 0600 AC 07/09 6 PO 08/08 0559 0610 Aspirin 81 MG DAILY 07/09 0020 AC 07/24 PO 08/08 0019 1004 Docusate Sodium 100 MG BID 07/08 2100 AC 07/24 PO 08/07 205 1008 Sennosides 17.2 MG BEDTIME 07/08 2100 AC 07/22 PO 08/07 205 205 Ipratropium [place] 500 MCG RTQ4H 07/08 1900 AC 07/24 [...] 0.4 MG BEDTIME 07/02 2144 AC 07/09 5 PO 08/01 24 hour I O ending at 0700: [...] FiO2 Mean Ox Delivery Rate 07/24 0702 36.6 84 18 106/62 76.2 94 07/24 0421 36.7 84 13 117/60 0.0 92 Room air 07/23 2347 36.8 86 13 115/57 0.0 94 Room air 07/23 203 95 Room air 07/23 2030 36.8 85 13 123/58 0.0 96 Room air 07/23 1655 36.4 93 22 112/58 0.0 99 07/23 1139 36.7 82 22 116/57 0.0 95 PATIENT WEIGHT: Weight (lb): 187 Weight (oz): 9.81 Weight (kg): 85.100 Status post: 07/08/22 CABG x 5 (MISTRY-LAD, [...] normal temperature, no edema Musculoskeletal: normal inspection Neuro/SCREW SUPERVISOR: alert, oriented X 3, normal speech Skin: dry Psychiatry: normal affect Diagnosis, Assessment Plan Problem List/A P: 1. HTN (hypertension) 2. CLAUDETTE (acute kidney injury) 3. CAD (coronary artery disease) 4. Dyslipidemia 5. BPH (benign prostatic hyperplasia) Free Text DxA P Notes Free Text DxA P Notes: Mr. Arce is a pleasant 81 y/o M w/ PMHx: HTN, HLD presented to [facility] on 06/28/22 for chest pa in and sob. He was diagnosed NSTEMI. LHC showed multivessel CAD. Transferred to [facility] for CABG. - CAD/NSTEMI s/p CABG CABG [...] discharge arrangements Electronically Signed by Jyoti Browning REFORMATORY ATTENDANT on 0 07/24/22 at 1111 Electronically Signed by Liset Ennis MD on at 0859 RPT #:[id number] END OF REPORT 2022-07-23 19:00:00-00:00 [facility] ([facility] Rehab Progress Note REPORT#:[id number] REPORT STATUS: Signed DATE:07/23/22 TIME: 1900 PATIENT: SHERRI ARCE UNIT #: [id number] ROOM/BED: [place] [address] : 42 AGE: 81 SEX: M ATTEND: Maryam Crawford DO ADM AUTHOR: Florencia Washburn REFORMATORY ATTENDANT * ALL edits or amendments must be made on the [employer]/computer document * Subjective Chief complaint: Rehab follow-up [...] HCl (CORDARONE) 200 MG BID PO Ipratropium [place] (ATROVENT) 500 MCG RTQ2H KY N PRN INH Lactulose (LACTULOSE) 20 GM DAILY [...] TABLET) 17.2 MG BED TIME PO Ipratropium [place] (ATROVENT) 500 MCG RTQ4H INH Acetaminophen (TYLENOL) [...] Lidocaine HCl (LIDOCAINE HCL/PF) 0.5 ML ASDIR KY N I-DERMAL (CKD) Mannitol (Mannitol 20%) 12.5 [...] normal, meagan l muscle mass, normal tone Neuro/SCREW SUPERVISOR: alert, oriented X 3, CNII-XII intact Results [...] (Auto) (14.0 - 32.0 %) 8.3 L Smyth % (Auto) (4.8 - 9.0 %) 8.2 Eos % (Auto) (0.3 - 3.7 %) 10.8 H Baso % (Auto) (0.0 - 2.0 %) 0.8 Neut # (Auto) (2.0 - 7.6 x10 3/uL) 8.26 H Lymph # (Auto) (1.0 - 3.8 x10 3/uL) 0.96 L Smyth # (Auto) (0.1 - 0.8 x10 3/uL) [...] disc ussed with patient. at 1902 RPT #:[id number] END OF REPORT 2022-07-23 14:47:00-00:00 [facility] ([facility]) Hospitalist Progress Note REPORT#:[id number] REPORT STATUS: Signed DATE:07/23/22 TIME: 1446 PATIENT: SHERRI ARCE UNIT #: [id number] [place]: [facility] : 42 AGE: 81 SEX: M ATTEND: Maryam Crawford DO ADM AUTHOR: Los Crawford DO * ALL edits or amendments must be made on the [employer] document * Subjective Chief complaint: No new [...] catheter Extremities: no edema Musculoskeletal: normal inspection Neuro/SCREW SUPERVISOR: normal speech, no motor deficits, no sensory [...] WITH DIALYSIS ACCESS, CONT WATERS , FLOMAX, 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 FROM 7.0 TO 4.3 No prior Hx [...] 6.5 s/p CABG 2 PRBC BT ordered 2/1 HTN (hypertension) - patient on metoprolol 12.5 [...] Discussion included: living will (none), power of employee benefits attorney (none), code status ( full code) at 1448 RPT #:[id number] END OF REPORT 2022-07-23 10:28:00-00:[address] [facility] Cardiothoracic Surgery Prog REPORT#:[id number] REPORT STATUS: Signed DATE:07/23/22 TIME: 1028 PATIENT: SHERRI ARCE UNIT #: [id number] ROOM/BED: [place] [address] : 42 AGE: 81 SEX: M ATTEND: Srinath Kaur MD ADM AUTHOR: Rosalind Toribio * ALL edits or amendments must be made on the el [employer]/computer document * General Post-op: day 10 Status post: 1/31/23 CABG x 5 (MISTRY-LAD, SVG-Ladonna, SVG-OM1< SVG-OM3, S VG-PDA) ALABud EVH (RGSV) Subjective Chief complaint: s/p CABG [...] Mean 0.0 07/23 826 Temp 97.3 07/23 826 Pulse 91 07/23 08 Resp 22 07/23 826 FiO2 21 07/21 2034 O2 Flow Rate [...] no distention Genitourinary: waters Extremities: moves all Neuro/SCREW SUPERVISOR: alert, oriented X 3, normal speech, n o motor deficits Psychiatry: normal affect, normal mood Current Medications Medications: Active Meds + DC'd Last 24 Hrs Midodrine (PROAMATINE) 5 MG 0900,1300,1700 PRN P O Sodium Chloride (SODIUM CHLORIDE) 10 ML ASDIR IV Amiodarone HCl (CORDARONE) 200 MG BID PO Ipratropium [place] (ATROVENT) 500 MCG RTQ2H PRN PRN INH [...] TABLET) 17.2 MG BED TIME PO Ipratropium [place] (ATROVENT) 500 MCG RTQ4H INH Acetaminophen (TYLENOL) [...] Lidocaine HCl (LIDOCAINE HCL/PF) 0.5 ML ASDIR KY N I-DERMAL (CKD) Mannitol (Mannitol 20%) 12.5 [...] (Auto) (14.0 - 32.0 %) 8.3 L Smyth % (Auto) (4.8 - 9.0 %) 8.2 Eos % (Auto) (0.3 - 3.7 %) 10.8 H Baso % (Auto) (0.0 - 2.0 %) 0.8 Neut # (Auto) (2.0 - 7.6 x10 3/uL) 8.26 H Lymph # (Auto) (1.0 - 3.8 x10 3/uL) 0.96 L Smyth # (Auto) (0.1 - 0.8 x10 3/uL) [...] Discussion included: living will (none), power of employee benefits attorney (none), code status ( full code) Diagnosis, Assessment Plan Hospital course to date: This is a 81-year-old gentleman who presented to an outside hospital with complaints of chest pains while walking at his home on Thursday. He denies any previous history of coronary artery disease or o ther LA. [facility]. He was found to have a urinary [...] p dialysis cath, Re-evaluate on Thursday if mcfp dialysis needed. Card: Remains in sinus rhythm. [...] dialysis chair Patient seen with Dr. Allie peña and discussed plan of care with multidisciplinary [...] dialysis ch air Waiting insurance approval for fpc f acility Patient seen and plan reviewed [...] cardiovascular surgery, nephrology at 1102 at 1002 [facility] #:[id number] END OF REPORT 2022-07-23 10:21:00-00:00 [facility] ([facility]) Cardiology Progress Note REPORT#:[id number] REPORT STATUS: Signed DATE:07/23/22 TIME: 1021 PATIENT: SHERRI ARCE UNIT #: [id number] ROOM/BED: [place] [address] : 42 AGE: 81 SEX: M ATTEND: Jesus Larson MD ADM AUTHOR: Sonya Stacy CNP * ALL edits or amendments must be made on the [employer]/computer document * Subjective Patient reports: No: complaints. [...] HCl (CORDARONE) 200 MG BID PO Ipratropium [place] (ATROVENT) 500 MCG RTQ2H PRN PRN INH [...] TABLET) 17.2 MG BED TIME PO Ipratropium [place] (ATROVENT) 500 MCG RTQ4H INH Acetaminophen (TYLENOL) [...] Lidocaine HCl (LIDOCAINE HCL/PF) 0.5 ML ASDIR P RN I-DERMAL (CKD) Mannitol (Mannitol 20%) 12.5 GM [...] normal temperature, no edema Musculoskeletal: normal inspection Neuro/SCREW SUPERVISOR: alert, oriented X 3, normal speech Skin: dry Psychiatry: normal affect Results Findings/Data: Laboratory Tests 07/23 042 Chemistry Sodium (134 - 147 mEq/L) 143 [...] (Auto) (14.0 - 32.0 %) 8.3 L Smyth % (Auto) (4.8 - 9.0 %) 8.2 Eos % (Auto) (0.3 - 3.7 %) 10.8 H Baso % (Auto) (0.0 - 2.0 %) 0.8 Neut # (Auto) (2.0 - 7.6 x10 3/uL) 8.26 H Lymph # (Auto) (1.0 - 3.8 x10 3/uL) 0.96 L Smyth # (Auto) (0.1 - 0.8 x10 3/uL) [...] 0.1 x10 3/uL) 0. 00 Laboratory Tests 07/23 0425 Chemistry Magnesium (1.80 - 2.40 mg/dL) 2.00 Results: labs reviewed, vital signs reviewed, [facility] personally rev'd Telemetry Interpretation: Sinus rhythm Diagnosis, Assessment Plan Plan discussed with: patient, nurse Free Text DxA P Notes Free Text DxA P Notes: Mr. Arce is a pleasant 81 y/o M w/ PMHx: HTN, HLD presented to [facility] on 06/28/22 for chest pa in and sob. He was diagnosed NSTEMI. LHC showed multivessel CAD. Transferred to [facility] for CABG. - CAD/NSTEMI s/p CABG CABG [...] d/t AK I and bordeline hypotension echo 2/3/23 LVEF 20-24%, preoperative Echo LVEF was 30-34% [...] Liset Ennis MD on at 0859 RPT #:[id number] END OF REPORT 2022-07-23 08:30:00-00:00 [facility] ([facility]) Nephrology Progress Note REPORT#:[id number] REPORT STATUS: Signed DATE:07/23/22 TIME: 829 PATIENT: SHERRI ARCE UNIT #: [id number] ROOM/BED: [place] [address] : 42 AGE: 81 SEX: M ATTEND: Maryam Crawford DO ADM AUTHOR: Evelina Plaza MD * ALL edits or amendments must be made on the [employer]/computer document * Subjective Chief complaint: Feeling okay [...] bladder distention Extremities: no edema, no swelling Neuro/SCREW SUPERVISOR: alert, oriented X 3, normal speech Skin: dry, intact Results Findings/Data: Laboratory Tests 07/235 0425 Chemistry Sodium (134 - 147 mEq/L) [...] (Auto) (14.0 - 32.0 %) 8.3 L Smyth % (Auto) (4.8 - 9.0 %) 8.2 Eos % (Auto) (0.3 - 3.7 %) 10.8 H Baso % (Auto) (0.0 - 2.0 %) 0.8 Neut # (Auto) (2.0 - 7.6 x10 3/uL) 8.26 H Lymph # (Auto) (1.0 - 3.8 x10 3/uL) 0.96 L Smyth # (Auto) (0.1 - 0.8 x10 3/uL) [...] Evelina Plaza MD on at 1703 RPT #:[id number] END OF REPORT 2022-07-22 21:28:00-00:00 [facility] ([facility] Nephrology Progress Note REPORT#:[id number] REPORT STATUS: Signed DATE:07/22/22 TIME: 2127 PATIENT: SHERRI ARCE UNIT #: [id number] ROOM/BED: [place] [address] : 42 AGE: 81 SEX: M ATTEND: Maryam Crawford DO ADM AUTHOR: Evelina Plaza MD * ALL edits or amendments must be made on the [employer]/computer document * Subjective Chief complaint: Feeling okay [...] HCl (CORDARONE) 200 MG BID PO Ipratropium [place] (ATROVENT) 500 MCG RTQ2H PRN PRN INH [...] TABLET) 17.2 MG BED TIME PO Ipratropium [place] (ATROVENT) 500 MCG RTQ4H INH Acetaminophen (TYLENOL) [...] Lidocaine HCl (LIDOCAINE HCL/PF) 0.5 ML ASDIR KY N I-DERMAL (CKD) Mannitol (Mannitol 20%) 12.5 [...] bladder distention Extremities: no edema, no swelling Neuro/SCREW SUPERVISOR: alert, oriented X 3, normal speech Skin: [...] Evelina Plaza MD on at 0830 RPT #:[id number] END OF REPORT 2022-07-22 17:40:00-00:00 [facility] Rehab Progress Note REPORT#:[id number] REPORT STATUS: Signed DATE:07/22/22 TIME: 1739 PATIENT: SHERRI ARCE UNIT #: [id number] ROOM/BED: [place] [address] : 42 AGE: 81 SEX: M ATTEND: Maryam Crawford DO ADM AUTHOR: Florencia Washburn NP * ALL edits or amendments must be made on the el [employer]/computer document * Subjective Chief complaint: Rehab follow-up [...] HCl (CORDARONE) 200 MG BID PO Ipratropium [place] (ATROVENT) 500 MCG RTQ2H PRN PRN INH [...] TABLET) 17.2 MG BED TIME PO Ipratropium [place] (ATROVENT) 500 MCG RTQ4H INH Acetaminophen (TYLENOL) [...] Lidocaine HCl (LIDOCAINE HCL/PF) 0.5 ML ASDIR KY N I-DERMAL (CKD) Mannitol (Mannitol 20%) 12.5 [...] normal, meagan l muscle mass, normal tone Neuro/SCREW SUPERVISOR: alert, oriented X 3, CNII-XII intact Results [...] (Auto) (14.0 - 32.0 %) 7.3 L Smyth % (Auto) (4.8 - 9.0 %) 6.8 Eos % (Auto) (0.3 - 3.7 %) 8.6 H Baso % (Auto) (0.0 - 2.0 %) 0.7 Neut # (Auto) (2.0 - 7.6 x10 3/uL) 10.21 H Lymph # (Auto) (1.0 - 3.8 x10 3/uL) 0.99 L Smyth # (Auto) (0.1 - 0.8 x10 3/uL) [...] disc ussed with patient. at 1741 RPT #:[id number] END OF REPORT 2022-07-22 14:24:00-00:00 [facility] Cardiothoracic Surgery Prog REPORT#:[id number] REPORT STATUS: Signed DATE:07/22/22 TIME: 1424 PATIENT: SHERRI ARCE UNIT #: [id number] ROOM/BED: [place] [address] : 42 AGE: 81 SEX: M ATTEND: Srinath Kaur MD ADM AUTHOR: Rosalind Toribio * ALL edits or amendments must be made on the [employer]/computer document * General Post-op: day 10 Status [...] Room air 07/22 0828 FiO2 21 07/21 2034 O2 Flow Rate [...] no distention Genitourinary: waters Extremities: moves all Neuro/SCREW SUPERVISOR: alert, oriented X 3, normal speech, n o motor deficits Psychiatry: normal affect, normal mood Current Medications Medications: Active Meds + DC'd Last 24 Hrs Midodrine (PROAMATINE) 5 MG 0900,1300,1700 PRN P O Sodium Chloride (SODIUM CHLORIDE) 10 ML ASDIR IV Amiodarone HCl (CORDARONE) 200 MG BID PO Ipratropium [place] (ATROVENT) 500 MCG RTQ2H PRN PRN INH [...] TABLET) 17.2 MG BED TIME PO Ipratropium [place] (ATROVENT) 500 MCG RTQ4H INH Acetaminophen (TYLENOL) [...] Lidocaine HCl (LIDOCAINE HCL/PF) 0.5 ML ASDIR KY N I-DERMAL (CKD) Mannitol (Mannitol 20%) 12.5 GM ASDIR PRN IV Sodium Chloride (SODIUM CHLORIDE 0.9%) 2,000 ML ASDIR PRN IV Tamsulosin HCl (Flomax 0.4 mg) 0.4 MG BEDTIME PO Results Findings/Data: Laboratory Tests 07/22 07/22 4025 0315 Chemistry Sodium (134 - 147 mEq/L) [...] (Auto) (14.0 - 32.0 %) 7.3 L Smyth % (Auto) (4.8 - 9.0 %) 6.8 Eos % (Auto) (0.3 - 3.7 %) 8.6 H Baso % (Auto) (0.0 - 2.0 %) 0.7 Neut # (Auto) (2.0 - 7.6 x10 3/uL) 10.21 H Lymph # (Auto) (1.0 - 3.8 x10 3/uL) 0.99 L Smyth # (Auto) (0.1 - 0.8 x10 3/uL) [...] of coronary artery disease or o ther LA. [facility]. He was found to have a urinary [...] p dialysis cath, Re-evaluate on Thursday if mcfp dialysis needed. Card: Remains in sinus rhythm. [...] back on suction to clear pneumo, CT michaeled 200cc th is AM. on suction. Labs [...] dialysis chair Patient seen with Dr. Allie peña and discussed plan of care with multidisciplinary [...] dialysis ch air Waiting insurance approval for fpc f acility Patient seen and plan reviewed [...] surgery, nephrology at 1427 at 1003 RPT #:[id number] END OF REPORT 2022-07-22 13:31[facility] RE[facility]#:[id number] REPORT STATUS: Signed DATE:07/22/22 TIME: 1331 PATIENT: SHERRI ARCE UNIT #: [id number] ROOM/BED: [address] : 42 AGE: 81 SEX: M ATTEND: Jesus Larson MD ADM AUTHOR: Sonya Stacy CNP * ALL edits or amendments must be made on the el [employer]/computer document * Subjective Patient reports: No: complaints. [...] HCl (CORDARONE) 200 MG BID PO Ipratropium [place] (ATROVENT) 500 MCG RTQ2H PRN PRN INH [...] TABLET) 17.2 MG BED TIME PO Ipratropium [place] (ATROVENT) 500 MCG RTQ4H INH Acetaminophen (TYLENOL) [...] Lidocaine HCl (LIDOCAINE HCL/PF) 0.5 ML ASDIR KY N I-DERMAL (CKD) Mannitol (Mannitol 20%) 12.5 [...] normal temperature, no edema Musculoskeletal: normal inspection Neuro/SCREW SUPERVISOR: alert, oriented X 3, normal speech Skin: dry Psychiatry: normal affect Results Findings/Data: Laboratory Tests 07/225 0315 Chemistry Sodium (134 - 147 mEq/L) [...] (Auto) (14.0 - 32.0 %) 7.3 L Smyth % (Auto) (4.8 - 9.0 %) 6.8 Eos % (Auto) (0.3 - 3.7 %) 8.6 H Baso % (Auto) (0.0 - 2.0 %) 0.7 Neut # (Auto) (2.0 - 7.6 x10 3/uL) 10.21 H Lymph # (Auto) (1.0 - 3.8 x10 3/uL) 0.99 L Smyth # (Auto) (0.1 - 0.8 x10 3/uL) [...] 2.00 Results: labs reviewed, vital signs reviewed, [facility] personally rev'd Telemetry Interpretation: sinus rhythm Diagnosis, Assessment Plan Plan discussed with: patient Free Text DxA P Notes Free Text DxA P Notes: Mr. Arce is a pleasant 81 y/o M w/ PMHx: HTN, HLD presented to [facility] on 06/28/22 for chest pa in and sob. He was diagnosed NSTEMI. LHC showed multivessel CAD. Transferred to [facility] for CABG. - CAD/NSTEMI s/p CABG CABG [...] Liset Ennis MD on at 0859 RPT #:[id number] END OF REPORT 2022-07-22 11:06:00-00:[address] [facility] Hospitalist Progress Note REPORT#:[id number] REPORT STATUS: Signed DATE:07/22/22 TIME: 1106 PATIENT: SHERRI ARCE UNIT #: [id number] ROOM/BED: [place] [address] : 42 AGE: 81 SEX: M ATTEND: Star Crawford DO ADM AUTHOR: Jesus Larson MD * ALL edits or amendments must be made on the [employer]/computer document * Subjective Chief complaint: doing fine. [...] catheter Extremities: no edema Musculoskeletal: normal inspection Neuro/SCREW SUPERVISOR: normal speech, no motor deficits, no sensory [...] AC 07/22 PO 08/15 0859 1047 Ipratropium [place] 500 MCG RTQ2H PRN PRN 07/11 1821 AC 07/10 INH 08/10 1820 1302 Lactulose 20 GM DAILY PRN PRN 07/11 1245 AC 3 PO 08/10 1244 1411 Cyanocobalamin 500 MCG DAILY 07/11 899 AC 07/22 PO 08/10 0859 1046 Ferrous Sulfate 325 MG DAILY 07/11 899 AC 07/09 4 PO 08/10 0859 1046 Bisacodyl 10 MG ONCE PRN 07/10 1200 AC 07/11 RECTAL 08/09 1159 0928 Atorvastatin Calcium 40 MG 2100 07/09 2100 AC PO 08/08 205 2038 Clopidogrel Bisulfate 75 MG DAILY 07/09 899 AC 07/22 PO 08/08 0859 1046 Polyethylene Glycol 17 GM DAILY 07/09 899 AC PO 08/08 0859 0941 Pantoprazole 40 MG DAILY@0600 07/09 0600 AC 07/09 4 PO 08/08 0559 0550 Aspirin 81 MG DAILY 07/09 0020 AC 07/22 PO 08/08 0019 1046 Docusate Sodium 100 MG BID 07/08 2100 AC 07/22 PO 08/07 2058 1046 Sennosides 17.2 MG BEDTIME 07/08 2100 AC 07/17 PO 08/07 2058 2100 Ipratropium [place] 500 MCG RTQ4H 07/08 1900 AC 07/22 [...] 07/02 2144 AC 07/09 3 PO 08/01 Laboratory Tests: 07/22 07/22 0315 0315 Chemistry [...] (Auto) (14.0 - 32.0 %) 7.3 L Smyth % (Auto) (4.8 - 9.0 %) 6.8 Eos % (Auto) (0.3 - 3.7 %) 8.6 H Baso % (Auto) (0.0 - 2.0 %) 0.7 Neut # (Auto) (2.0 - 7.6 x10 3/uL) 10.21 H Lymph # (Auto) (1.0 - 3.8 x10 3/uL) 0.99 L Smyth # (Auto) (0.1 - 0.8 x10 3/uL) [...] WITH DIALYSIS ACCESS, CONT WATERS , FLOMAX, 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 FROM 7.0 TO 4.3 No prior Hx [...] Discussion included: living will (none), power of employee benefits attorney (none), code status ( full code) Electronically Signed by Jesus Larson MD on 07/09 09/28 at 1107 RPT #:[id number] END OF REPORT 2022-07-21 16:30:00-00:00 [facility] ([facility]) Hospitalist Progress Note REPORT#:[id number] REPORT STATUS: Signed DATE:07/21/22 TIME: 1630 PATIENT: SHERRI ARCE UNIT #: [id number] ROOM/BED: [place] [address] : 42 AGE: 81 SEX: M ATTEND: Maryam Crawford DO ADM AUTHOR: Los Crawford DO * ALL edits or amendments must be made on the el [employer]/computer document * Subjective Chief complaint: Patient seen and examined during dialysis this m orning No new complaints HPI: 81 y/o man with PMHx of HTN, Dyslipidemia that presented to [facility] last Thursday06/28/22 with chest pain and found to have a NSTEMI and also acute renal failure. Underwent cardiac c ath yesterday and found to have severe CAD including left main disease. Transfer here f or CABG evaluation. He also underwent HD Thursday and Thursday of this week. HD catheter [facility] at [facility]. Currently not having any chest pain. Had [...] catheter Extremities: no edema Musculoskeletal: normal inspection Neuro/SCREW SUPERVISOR: normal speech, no motor deficits, no sensory [...] WITH DIALYSIS ACCESS, CONT WATERS , FLOMAX, 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 FROM 7.0 TO 4.3 No prior Hx [...] Discussion included: living will (none), power of employee benefits attorney (none), code status ( full code) at 1631 RPT #:[id number] END OF REPORT 2022-07-21 13:58:00-00:00 [facility] ([facility]) Nephrology Progress Note REPORT#:[id number] REPORT STATUS: Signed DATE:07/21/22 TIME: 1358 PATIENT: SHERRI ARCE UNIT #: [id number] ROOM/BED: [place] [address] : 42 AGE: 81 SEX: M ATTEND: Maryam Crawford DO ADM AUTHOR: Evelina Plaza MD * ALL edits or amendments must be made on the [employer]/computer document * Subjective Chief complaint: Feeling okay [...] HCl (CORDARONE) 200 MG BID PO Ipratropium [place] (ATROVENT) 500 MCG RTQ2H PRN PRN INH [...] TABLET) 17.2 MG BED TIME PO Ipratropium [place] (ATROVENT) 500 MCG RTQ4H INH Acetaminophen (TYLENOL) [...] Lidocaine HCl (LIDOCAINE HCL/PF) 0.5 ML ASDIR KY N I-DERMAL (CKD) Mannitol (Mannitol 20%) 12.5 [...] bladder distention Extremities: no edema, no swelling Neuro/SCREW SUPERVISOR: alert, oriented X 3, normal speech Skin: dry, intact Results Findings/Data: Laboratory Tests 07/21 0445 Chemistry [...] (1.80 - 2.40 mg/dL) 1.93 Laboratory Tests 07/215 Hematology WBC (4.5 - 11.0 x10 3/uL) [...] (Auto) (14.0 - 32.0 %) 5.3 L Smyth % (Auto) (4.8 - 9.0 %) 6.4 Eos % (Auto) (0.3 - 3.7 %) 6.9 H Baso % (Auto) (0.0 - 2.0 %) 0.5 Neut # (Auto) (2.0 - 7.6 x10 3/uL) 13.41 H Lymph # (Auto) (1.0 - 3.8 x10 3/uL) 0.88 L Smyth # (Auto) (0.1 - 0.8 x10 3/uL) [...] (0.0 - 0.1 x10 3/uL) 0. 00 Treatment Prophylaxis Treatment Prophylaxis Drain(s)/tube(s): Drain(s)/tube(s): chest [...] Evelina Plaza MD on at 1401 RPT #:[id number] END OF REPORT 2022-07-21 11:47:00-00:00 [facility] ([facility]) Cardiothoracic Surgery Prog REPORT#:[id number] REPORT STATUS: Signed DATE:07/21/22 TIME: 1147 PATIENT: SHERRI ARCE UNIT #: [id number] ROOM/BED: [address] : 42 AGE: 81 SEX: M ATTEND: Srinath Kaur MD ADM AUTHOR: Rosalind Toribio NP * ALL edits or amendments must be made on the el [employer]/computer document * General Post-op: day 10 Status post: 07/08/22 CABG x 5 (MISTRY-LAD, SVG-Ladonna, SVG-OM1< SVG-OM3, S VG-PDA) ALABud TATUM (RGSV) Subjective Chief complaint: s/p [...] no distention Genitourinary: waters Extremities: moves all Neuro/SCREW SUPERVISOR: alert, oriented X 3, normal speech, n o motor deficits Psychiatry: normal affect, normal mood Current Medications Medications: Active Meds + DC'd Last 24 Hrs Midodrine (PROAMATINE) 5 MG 0900,1300,1700 PRN P O Sodium Chloride (SODIUM CHLORIDE) 10 ML ASDIR IV Amiodarone HCl (CORDARONE) 200 MG BID PO Ipratropium [place] (ATROVENT) 500 MCG RTQ2H PRN PRN INH [...] TABLET) 17.2 MG BED TIME PO Ipratropium [place] (ATROVENT) 500 MCG RTQ4H INH Acetaminophen (TYLENOL) [...] Lidocaine HCl (LIDOCAINE HCL/PF) 0.5 ML ASDIR [place] N I-DERMAL (CKD) Mannitol (Mannitol 20%) 12.5 [...] (Auto) (14.0 - 32.0 %) 5.3 L Smyth % (Auto) (4.8 - 9.0 %) 6.4 Eos % (Auto) (0.3 - 3.7 %) 6.9 H Baso % (Auto) (0.0 - 2.0 %) 0.5 Neut # (Auto) (2.0 - 7.6 x10 3/uL) 13.41 H Lymph # (Auto) (1.0 - 3.8 x10 3/uL) 0.88 L Smyth # (Auto) (0.1 - 0.8 x10 3/uL) [...] of coronary artery disease or o ther LA. [facility]. He was found to have a urinary [...] p dialysis cath, Re-evaluate on Thursday if mcfp dialysis needed. Card: Remains in sinus rhythm. [...] dialysis chair Patient seen with Dr. Allie peña and discussed plan of care with multidisciplinary [...] dialysis ch air Waiting insurance approval for fpc f acility Patient seen and plan reviewed with Dr. Schwarz 07/20 Remains in a stable condition. Echocardiogram showed LVEF 30 to 34%, trivial pe ricardial effusion HD schedule per nephrology Awaiting insurance approval for SNF 07/21 No complaints today HD schedule per nephrology Awaiting insurance approval for SNF Encourage I-S and mobilization at 1150 at 1004 RPT #:[id number] END OF REPORT 2022-07-21 10:29:00-00:00 [facility] Rehab Progress Note REPORT#:[id number] REPORT STATUS: Signed DATE:07/21/22 TIME: 1029 PATIENT: SHERRI ARCE UNIT #: [id number] ROOM/BED: [place] [address] : 42 AGE: 81 SEX: M ATTEND: Maryam Crawford DO ADM AUTHOR: Magdaleno Washburn * ALL edits or amendments must be made on the [employer]/computer document * Subjective Chief complaint: Rehab follow-up [...] normal, meagan l muscle mass, normal tone Neuro/SCREW SUPERVISOR: alert, oriented X 3, CNII-XII intact Results [...] (Auto) (14.0 - 32.0 %) 5.3 L Smyth % (Auto) (4.8 - 9.0 %) 6.4 Eos % (Auto) (0.3 - 3.7 %) 6.9 H Baso % (Auto) (0.0 - 2.0 %) 0.5 Neut # (Auto) (2.0 - 7.6 x10 3/uL) 13.41 H Lymph # (Auto) (1.0 - 3.8 x10 3/uL) 0.88 L Smyth # (Auto) (0.1 - 0.8 x10 3/uL) [...] Washburn on 0 07/22/22 at 0646 RPT #:[id number] END OF REPORT 2022-07-21 09:[facility] RE[facility]#:[id number] REPORT STATUS: Signed DATE:07/21/22 TIME: 938 PATIENT: SHERRI ARCE UNIT #: [id number] ROOM/BED: [place] [address] : 42 AGE: 81 SEX: M ATTEND: Jesus Larson MD ADM AUTHOR: Sonya Stacy CNP * ALL edits or amendments must be made on the el [employer]/computer document * Subjective Patient reports: No: complaints. [...] HCl (CORDARONE) 200 MG BID PO Ipratropium [place] (ATROVENT) 500 MCG RTQ2H PRN PRN INH [...] TABLET) 17.2 MG BED TIME PO Ipratropium [place] (ATROVENT) 500 MCG RTQ4H INH Acetaminophen (TYLENOL) [...] Lidocaine HCl (LIDOCAINE HCL/PF) 0.5 ML ASDIR [place] N I-DERMAL (CKD) Mannitol (Mannitol 20%) 12.5 [...] normal temperature, no edema Musculoskeletal: normal inspection Neuro/SCREW SUPERVISOR: alert, oriented X 3, normal speech Skin: [...] (Auto) (14.0 - 32.0 %) 5.3 L Smyth % (Auto) (4.8 - 9.0 %) 6.4 Eos % (Auto) (0.3 - 3.7 %) 6.9 H Baso % (Auto) (0.0 - 2.0 %) 0.5 Neut # (Auto) (2.0 - 7.6 x10 3/uL) 13.41 H Lymph # (Auto) (1.0 - 3.8 x10 3/uL) 0.88 L Smyth # (Auto) (0.1 - 0.8 x10 3/uL) [...] 0.1 x10 3/uL) 0. 00 Laboratory Tests 07/21 0445 Chemistry Magnesium (1.80 - 2.40 mg/dL) 1.93 Results: labs reviewed, vital signs reviewed Diagnosis, Assessment Plan Free Text DxA P Notes Free Text DxA P Notes: Mr. Arce is a pleasant 81 y/o M w/ PMHx: HTN, HLD presented to [facility] on 06/28/22 for chest pa in and sob. He was diagnosed NSTEMI. LHC showed multivessel CAD. Transferred to [facility] for CABG. - CAD/NSTEMI s/p CABG CABG [...] Signed by Liset Ennis MD on at 7173 RPT #:[id number] END OF REPORT 2022-07-20 17:14:00-00:00 [facility] ([facility]) Nephrology Progress Note REPORT#:[id number] REPORT STATUS: Signed DATE:07/20/22 TIME: 1714 PATIENT: SHERRI ARCE UNIT #: [id number] ROOM/BED: 3[address] : 42 AGE: 81 SEX: M ATTEND: Srinath Kaur MD ADM AUTHOR: Jackie Wan MD * ALL edits or amendments must be made on the [employer] document * Subjective Chief complaint: Feeling okay [...] HCl (CORDARONE) 200 MG BID PO Ipratropium [place] (ATROVENT) 500 MCG RTQ2H PRN PRN INH [...] TABLET) 17.2 MG BED TIME PO Ipratropium [place] (ATROVENT) 500 MCG RTQ4H INH Acetaminophen (TYLENOL) [...] Lidocaine HCl (LIDOCAINE HCL/PF) 0.5 ML ASDIR [place] N I-DERMAL (CKD) Mannitol (Mannitol 20%) 12.5 [...] bladder distention Extremities: no edema, no swelling Neuro/SCREW SUPERVISOR: alert, oriented X 3, normal speech Skin: [...] (Auto) (14.0 - 32.0 %) 6.5 L Smyth % (Auto) (4.8 - 9.0 %) 7.1 Eos % (Auto) (0.3 - 3.7 %) 7.8 H Baso % (Auto) (0.0 - 2.0 %) 0.8 Neut # (Auto) (2.0 - 7.6 x10 3/uL) 11.22 H Lymph # (Auto) (1.0 - 3.8 x10 3/uL) 0.95 L Smyth # (Auto) (0.1 - 0.8 x10 3/uL) [...] Electronically Signed by Jackie Wan MD on 07/09 07/31 at 1716 RPT #:[id number] END OF REPORT 2022-07-20 14:11:00-00:00 [facility] ([facility]) Cardiothoracic Surgery Prog REPORT#:[id number] REPORT STATUS: Signed DATE:07/20/22 TIME: 1411 PATIENT: SHERRI ARCE UNIT #: [id number] ROOM/BED: [place] [address] : 42 AGE: 81 SEX: M ATTEND: Srinath Kaur MD ADM AUTHOR: Rosalind Toribio NP * ALL edits or amendments must be made on the el [employer]/computer document * General Post-op: day 10 Status [...] distention Genitourinary: no waters Extremities: moves all Neuro/SCREW SUPERVISOR: alert, oriented X 3, normal speech, n [...] of coronary artery disease or o ther LA. [facility]. 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 Card: Remains in sinus rhythm. [...] dialysis chair Patient seen with Dr. Allie peña and discussed plan of care with multidisciplinary [...] dialysis ch air Waiting insurance approval for fpc f acility Patient seen and plan reviewed with Dr. Schwarz 07/20 Remains in a stable condition. Echocardiogram showed LVEF 30 to 34%, trivial pe ricardial effusion HD schedule per nephrology Awaiting insurance approval for SNF Consultants: cardiology, cardiovascular surgery, nephrology at 1413 at 0916 RPT #:[id number] END OF REPORT 2022-07-20 12:04:00-00:00 [facility] ([facility]) Cardiology Progress Note REPORT#:[id number] REPORT STATUS: Signed DATE:07/20/22 TIME: 1204 PATIENT: SHERRI ARCE UNIT #: [id number] ROOM/BED: [place] [address] : 42 AGE: 81 SEX: M ATTEND: Jesus Larson MD ADM AUTHOR: Sonya Stacy CNP * ALL edits or amendments must be made on the [employer] document * Subjective Patient reports: No: complaints. [...] low FiO2 Mean Ox Delivery Rate 07/20 0929 [...] HCl (CORDARONE) 200 MG BID PO Ipratropium [place] (ATROVENT) 500 MCG RTQ2H PRN PRN INH [...] TABLET) 17.2 MG BED TIME PO Ipratropium [place] (ATROVENT) 500 MCG RTQ4H INH Acetaminophen (TYLENOL) [...] Lidocaine HCl (LIDOCAINE HCL/PF) 0.5 ML ASDIR [place] N I-DERMAL (CKD) Mannitol (Mannitol 20%) 12.5 [...] normal temperature, no edema Musculoskeletal: normal inspection Neuro/SCREW SUPERVISOR: alert, oriented X 3, normal speech Skin: [...] (Auto) (14.0 - 32.0 %) 6.5 L Smyth % (Auto) (4.8 - 9.0 %) 7.1 Eos % (Auto) (0.3 - 3.7 %) 7.8 H Baso % (Auto) (0.0 - 2.0 %) 0.8 Neut # (Auto) (2.0 - 7.6 x10 3/uL) 11.22 H Lymph # (Auto) (1.0 - 3.8 x10 3/uL) 0.95 L Smyth # (Auto) (0.1 - 0.8 x10 3/uL) [...] M w/ PMHx: HTN, HLD presented to [facility] on 06/28/22 for chest pa in and sob. He was diagnosed NSTEMI. [facility] showed multivessel CAD. Transferred to [facility] for CABG. - CAD/NSTEMI s/p CABG CABG [...] Liset Ennis MD on at 0859 RPT #:[id number] END OF REPORT 2022-07-20 11:38:00-00:00 [facility] Hospitalist Progress Note REPORT#:[id number] REPORT STATUS: Signed DATE:07/20/22 TIME: 1138 PATIENT: SHERRI ARCE UNIT #: [id number] ROOM/BED: [place] [address] : 42 AGE: 81 SEX: M ATTEND: Srinath Kaur MD ADM AUTHOR: Srinath Kaur MD * ALL edits or amendments must be made on the el [employer]/computer document * Subjective Chief complaint: NO COMPLAINTS, HE KNOWS TO GO TO SNF SOON HPI: 81 y/o man with PMHx of HTN, Dyslipidemia that presented to [facility] last Thursday06/28/22 with chest pain and found to have a NSTEMI and also acute renal failure. Underwent cardiac c ath yesterday and found to have severe CAD including left main disease. Transfer here f or CABG evaluation. He also underwent HD Thursday and Thursday of this week. HD catheter was place at [facility]. Currently not having any chest pain. Had chest pain with SOB when he presentted to the previous hospital. 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, no motor deficits, no sensory deficits Skin: intact, normal color, no rash Psychiatry: normal affect Results Findings/Data: Laboratory Tests 07/20 0445 Chemistry Sodium (134 - 147 mEq/L) 143 [...] (Auto) (14.0 - 32.0 %) 6.5 L Smyth % (Auto) (4.8 - 9.0 %) 7.1 Eos % (Auto) (0.3 - 3.7 %) 7.8 H Baso % (Auto) (0.0 - 2.0 %) 0.8 Neut # (Auto) (2.0 - 7.6 x10 3/uL) 11.22 H Lymph # (Auto) (1.0 - 3.8 x10 3/uL) 0.95 L Smyth # (Auto) (0.1 - 0.8 x10 3/uL) [...] WITH DIALYSIS ACCESS, CONT WATERS , FLOMAX, 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 FROM 7.0 TO 4.3 No prior Hx [...] Discussion included: living will (none), power of employee benefits attorney (none), code status ( full code) Electronically Signed by Srinath Kaur MD on 07/20 at 1141 RPT #:[id number] END OF REPORT 2022-07-20 07:05:00-00:00 [facility] ([facility]) Rehab Progress Note REPORT#:[id number] REPORT STATUS: Signed DATE:07/20/22 TIME: 704 PATIENT: SHERRI ARCE UNIT #: [id number] ROOM[place]BED: [facility] [place] : 42 AGE: 81 SEX: M ATTEND: Srinath Kaur MD ADM AUTHOR: Magdaleno Washburn * ALL edits or amendments must be made on the [employer]/computer document * Subjective Chief complaint: Rehab follow-up Doing well. Denies pain or sob Pleasant Denies NAIK/N/V/D/CP 14 systems reviewed and neg. except that above. Objective General VS: Vital Signs: Date Time Temp Pulse Resp B/P B/P Pulse O2 O2 Flow FiO2 Mean Ox Delivery Rate 07/20 0519 [...] HCl (CORDARONE) 200 MG BID PO Ipratropium [place] (ATROVENT) 500 MCG RTQ2H KY N PRN INH Lactulose (LACTULOSE) 20 GM DAILY [...] TABLET) 17.2 MG BED TIME PO Ipratropium [place] (ATROVENT) 500 MCG RTQ4H INH Acetaminophen (TYLENOL) [...] Lidocaine HCl (LIDOCAINE HCL/PF) 0.5 ML ASDIR [place] N I-DERMAL (CKD) Mannitol (Mannitol 20%) 12.5 [...] PATIENT RETURNED BACK TO RECLINER AND LEFT WIT H ALL NEEDS MET. RN NOTIFIED AND AWARE OF TREATMENT SESSION. If this is the patient's last treatment, this e ntry serves as the discharge summary: 075 Start Time: 749 Stop Time: 813 Treatment Time : ( minutes) 0:24 Completed by: Galindo Berry Conference/Supervising PT: Yes Supervising Therapist: Eddi Doran BED MOBILITY: Yes Rolling Right/Left: Minimal Assistance [...] normal, meagan l muscle mass, normal tone Neuro/SCREW SUPERVISOR: alert, oriented X 3, CNII-XII intact Results Findings/Data: Laboratory Tests 07/1915 0515 1331 0618 0618 Chemistry Sodium (134 [...] - 32.0 %) 9.3 L 8.5 L Smyth % (Auto) (4.8 - 9.0 %) 8.1 8.8 Eos % (Auto) (0.3 - 3.7 %) 7.9 H 7.2 H Baso % (Auto) (0.0 - 2.0 %) 0.7 0.6 Neut # (Auto) (2.0 - 7.6 x10 3/uL) 8.15 H 9.05 H Lymph # (Auto) (1.0 - 3.8 x10 3/uL) 1.05 1.05 Smyth # (Auto) (0.1 - 0.8 x10 3/uL) [...] 0.00 Recent Impressions: ULTRASOUND - DUP VEIN VARUN 07/17 1519 Report Impression - Status: SIGNED [...] Washburn on 0 07/21/22 at 0437 RPT #:[id number] END OF REPORT 2022-07-19 17:21:00-00:00 [facility] ([facility]) Nephrology Progress Note REPORT#:[id number] REPORT STATUS: Signed DATE:07/19/22 TIME: 172 PATIENT: SHERRI ARCE UNIT #: [id number] ROOM/BED: [place] [address] : 42 AGE: 81 SEX: M ATTEND: Srinath Kaur MD ADM AUTHOR: Jackie Wan MD * ALL edits or amendments must be made on the [employer]/computer document * Subjective Chief complaint: Feeling okay and has no complaints at this time. Review of Systems Constitutional: Reports: generalized weakness. All systems rev neg: except as marked Objective General VS/I O: Vital Signs: Date Time Temp Pulse Resp B/P B/P Pulse O2 O2 Flow FiO2 Mean Ox Delivery Rate 07/19 1536 [...] HCl (CORDARONE) 200 MG BID PO Ipratropium [place] (ATROVENT) 500 MCG RTQ2H PRN PRN INH [...] TABLET) 17.2 MG BED TIME PO Ipratropium [place] (ATROVENT) 500 MCG RTQ4H INH Acetaminophen (TYLENOL) [...] Lidocaine HCl (LIDOCAINE HCL/PF) 0.5 ML ASDIR [place] N I-DERMAL (CKD) Mannitol (Mannitol 20%) 12.5 [...] bladder distention Extremities: no edema, no swelling Neuro/SCREW SUPERVISOR: alert, oriented X 3, normal speech Skin: dry, intact Results Findings/Data: Laboratory Tests 07/19 07/19 0515 0587 Chemistry Sodium (134 - 147 mEq/L) 141 [...] (Auto) (14.0 - 32.0 %) 9.3 L Smyth % (Auto) (4.8 - 9.0 %) 8.1 Eos % (Auto) (0.3 - 3.7 %) 7.9 H Baso % (Auto) (0.0 - 2.0 %) 0.7 Neut # (Auto) (2.0 - 7.6 x10 3/uL) 8.15 H Lymph # (Auto) (1.0 - 3.8 x10 3/uL) 1.05 Smyth # (Auto) (0.1 - 0.8 x10 3/uL) [...] Wan MD on 07/19 at 1723 RPT #:[id number] END OF REPORT 2022-07-19 13:58:00-00:[address] [facility] Cardiothoracic Surgery Prog REPORT#:[id number] REPORT STATUS: Signed DATE:07/19/22 TIME: 1358 PATIENT: SHERRI ARCE UNIT #: [id number] ROOM/BED: [place] [address] : 42 AGE: 81 SEX: M ATTEND: Srinath Kaur MD ADM AUTHOR: Rosalind Toribio * ALL edits or amendments must be made on the [employer]/computer document * General Post-op: day 10 Status post: 07/08/22 CABG x 5 (MISTRY-LAD, SVG-Ladonna, SVG-OM1< SVG-OM3, S VG-PDA) ALEXIS EVH (RGSV) Subjective Chief complaint: s/p CABG [...] Result Date Time Pulse Ox 95 07/19 902 O2 Delivery Room air 07/19 902 B/P 119/79 07/19 827 B/P Mean 0.0 07/19 827 Temp 98.1 07/19 827 Pulse 91 07/19 827 Resp 20 07/19 827 FiO2 21 07/18 2057 O2 Flow Rate 3 07/14 1151 24 [...] distention Genitourinary: no waters Extremities: moves all Neuro/SCREW SUPERVISOR: alert, oriented X 3, normal speech, n o motor deficits Psychiatry: normal affect, normal mood Current Medications Medications: Active Meds + DC'd Last 24 Hrs Midodrine (PROAMATINE) 5 MG 0900,1300,1700 PRN P O Sodium Chloride (SODIUM CHLORIDE) 10 ML ASDIR IV Amiodarone HCl (CORDARONE) 200 MG BID PO Ipratropium [place] (ATROVENT) 500 MCG RTQ2H PRN PRN INH [...] TABLET) 17.2 MG BED TIME PO Ipratropium [place] (ATROVENT) 500 MCG RTQ4H INH Acetaminophen (TYLENOL) [...] Lidocaine HCl (LIDOCAINE HCL/PF) 0.5 ML ASDIR [place] N I-DERMAL (CKD) Mannitol (Mannitol 20%) 12.5 [...] (Auto) (14.0 - 32.0 %) 9.3 L Smyth % (Auto) (4.8 - 9.0 %) 8.1 Eos % (Auto) (0.3 - 3.7 %) 7.9 H Baso % (Auto) (0.0 - 2.0 %) 0.7 Neut # (Auto) (2.0 - 7.6 x10 3/uL) 8.15 H Lymph # (Auto) (1.0 - 3.8 x10 3/uL) 1.05 Smyth # (Auto) (0.1 - 0.8 x10 3/uL) [...] Discussion included: living will (none), power of employee benefits attorney (none), code status ( full code) Diagnosis, Assessment Plan Hospital course to date: This is a 81-year-old gentleman who presented to an outside hospital with complaints of chest pains while walking at his home on Thursday. He denies any previous history of coronary artery disease or o ther LA. [facility] He was found to have a urinary [...] p dialysis cath, Re-evaluate on Thursday if mcfp dialysis needed. Card: Remains in sinus rhythm. [...] dialysis chair Patient seen with Dr. Allie peña and discussed plan of care with multidisciplinary [...] dialysis ch air Waiting insurance approval for fpc f acility Patient seen and plan reviewed with Dr. Schwarz Consultants: cardiology, cardiovascular surgery, nephrology at 1402 at 1939 RPT #:[id number] END OF REPORT 2022-07-19 12:15:00-00:00 [id number] [place] [address] PATIENT NAME: SHERRI ARCE ADMIT DATE: 07/02/22 ACCOUNT NO: [id number] ROOM NO: [id number] AGE: 81 REPORT TYPE: eECHOCARDIOGRAM REPORT SEX: M ADMITTING PHYSICIAN:Srinath Kaur MD ATTENDING PHYSICIAN:Srinath Kaur MD *[place] [address] Limited Transthoracic Echocardiogram Patient: Sherri Arce Study Date: 07/18/2022 BP: 127 / 67 Location: [facility] URN: [id number] 7447 : 1940 Age: 81 Height: 72 in / 182.9 cm Gender: M Weight: 192 .6 lb / 87.5 kg BMI/BSA: 26.2 kg/m 2 / 2.1 m 2 *Ordering Physician: * Rosalind Toribio *Interpreting Physician: * Liset Ennis MD *Biochemical Engineer: * Ayanna Cruz Indications: POST CABG. Study data: Transthoracic echocardiogram, limite d study. [...] PATIENT NAME: SHERRI ARCE 2022-07-19 12:00:00-00:00 [facility] Hospitalist Progress Note REPORT#:[id number] REPORT STATUS: Signed DATE:07/19/22 TIME: 1200 PATIENT: SHERRI ARCE UNIT #: [id number] ROOM/BED: [place] [address] : 42 AGE: 81 SEX: M ATTEND: Srinath Kaur MD ADM AUTHOR: Srinath Kaur MD * ALL edits or amendments must be made on the [employer]/computer document * Subjective Chief complaint: SLEEPING NOW HPI: 81 y/o man with PMHx of HTN, Dyslipidemia that presented to [facility] last Thursday06/28/22 with chest pain and found to have a NSTEMI and also acute renal failure. Underwent cardiac c ath yesterday and found to have severe CAD including left main disease. Transfer here f or CABG evaluation. He also underwent HD Thursday and Thursday of this week. HD catheter was place at [facility]. Currently not having any chest pain. Had [...] HCl (CORDARONE) 200 MG BID PO Ipratropium [place] (ATROVENT) 500 MCG RTQ2H PRN PRN INH [...] (Senna Lax 8.6 MG TABLET) 17.2 MG BE DTIME PO Ipratropium [place] (ATROVENT) 500 MCG RTQ4H INH Acetaminophen (TYLENOL) [...] Lidocaine HCl (LIDOCAINE HCL/PF) 0.5 ML ASDIR [place] N I-DERMAL (CKD) Mannitol (Mannitol 20%) 12.5 [...] rebound Extremities: no edema Musculoskeletal: normal inspection Neuro/SCREW SUPERVISOR: normal speech, no motor deficits, no sensory [...] (Auto) (14.0 - 32.0 %) 9.3 L Smyth % (Auto) (4.8 - 9.0 %) 8.1 Eos % (Auto) (0.3 - 3.7 %) 7.9 H Baso % (Auto) (0.0 - 2.0 %) 0.7 Neut # (Auto) (2.0 - 7.6 x10 3/uL) 8.15 H Lymph # (Auto) (1.0 - 3.8 x10 3/uL) 1.05 Smyth # (Auto) (0.1 - 0.8 x10 3/uL) [...] WITH DIALYSIS ACCESS, CONT WATERS , FLOMAX, 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 FROM 7.0 TO 4.3 NOW No prior [...] Kaur MD on 07/19 at 1203 RPT #:[id number] END OF REPORT 2022-07-19 10:01:00-00:00 [facility] Cardiology Progress Note REPORT#:[id number] REPORT STATUS: Signed DATE:07/19/22 TIME: 1001 PATIENT: SHERRI ARCE UNIT #: [id number] ROOM[address]BED: [address] : 42 AGE: 81 SEX: M ATTEND: Srinath Kaur MD ADM AUTHOR: Sonya Stacy CNP * ALL edits or amendments must be made on the el [employer]/computer document * Subjective Patient reports: No: complaints. [...] HCl (CORDARONE) 200 MG BID PO Ipratropium [place] (ATROVENT) 500 MCG RTQ2H PRN PRN INH [...] TABLET) 17.2 MG BED TIME PO Ipratropium [place] (ATROVENT) 500 MCG RTQ4H IN H Acetaminophen [...] Lidocaine HCl (LIDOCAINE HCL/PF) 0.5 ML ASDIR [place] N I-DERMAL (CKD) Mannitol (Mannitol 20%) 12.5 [...] ormal temperature, no edema Musculoskeletal: normal inspection Neuro/SCREW SUPERVISOR: alert, oriented X 3, normal speech Skin: [...] (Auto) (14.0 - 32.0 %) 9.3 L Smyth % (Auto) (4.8 - 9.0 %) 8.1 Eos % (Auto) (0.3 - 3.7 %) 7.9 H Baso % (Auto) (0.0 - 2.0 %) 0.7 Neut # (Auto) (2.0 - 7.6 x10 3/uL) 8.15 H Lymph # (Auto) (1.0 - 3.8 x10 3/uL) 1.05 Smyth # (Auto) (0.1 - 0.8 x10 3/uL) [...] thickening similar to prior study. Impression By: StevenCSNatalie - Chaim Alonzo M.D. Results: labs reviewed, vital signs reviewed, [facility] personally rev'd Telemetry Interpretation: sinus rhythm Diagnosis, Assessment Plan Problem List/A P: 1. HTN (hypertension) 2. CLAUDETTE (acute kidney injury) 3. CAD (coronary artery disease) 4. Dyslipidemia 5. BPH (benign prostatic hyperplasia) Plan discussed with: patient, nurse Free Text DxA P Notes Free Text DxA P Notes: Mr. Arce is a pleasant 81 y/o M w/ PMHx: HTN, HLD presented to [facility] on 06/28/22 for chest pa in and sob. He was diagnosed NSTEMI. LHC showed multivessel CAD. Transferred to [facility] for CABG. - CAD/NSTEMI s/p CABG CABG [...] Liset Ennis MD on at 0754 RPT #:[id number] END OF REPORT 2022-07-19 07:02:00-00:00 [facility] ([facility]) Rehab Progress Note REPORT#:[id number] REPORT STATUS: Signed DATE:07/19/22 TIME: 701 PATIENT: SHERRI ARCE UNIT #: [id number] ROOM/BED: [place] [address] : 42 AGE: 81 SEX: M ATTEND: Srinath Kaur MD ADM AUTHOR: Magdaleno Washburn * ALL edits or amendments must be made on the [employer]/computer document * Subjective Chief complaint: Rehab follow-up [...] HCl (CORDARONE) 200 MG BID PO Ipratropium [place] (ATROVENT) 500 MCG RTQ2H PRN PRN INH [...] TABLET) 17.2 MG BED TIME PO Ipratropium [place] (ATROVENT) 500 MCG RTQ4H INH Acetaminophen (TYLENOL) [...] Lidocaine HCl (LIDOCAINE HCL/PF) 0.5 ML ASDIR [place] N I-DERMAL (CKD) Mannitol (Mannitol 20%) 12.5 [...] of Care: Yes PT charges: Gait Training 17915 Gait Cmt: PATIENT SEMI-RECLINED IN BED UPON [...] normal, meagan l muscle mass, normal tone Neuro/SCREW SUPERVISOR: alert, oriented X 3, CNII-XII intact Results [...] - 32.0 %) 8.5 L 7.2 L Smyth % (Auto) (4.8 - 9.0 %) 8.8 11.0 H Eos % (Auto) (0.3 - 3.7 %) 7.2 H 6.8 H Baso % (Auto) (0.0 - 2.0 %) 0.6 0.6 Neut # (Auto) (2.0 - 7.6 x10 3/uL) 9.05 H 7.90 H Lymph # (Auto) (1.0 - 3.8 x10 3/uL) 1.05 0.80 L Smyth # (Auto) (0.1 - 0.8 x10 3/uL) [...] bibasilar airspace opacities Impression By: [email or web address] - Som Enriquez M.D . RADIOLOGY - XR CHEST 1 V 07/17 0554 Report Impression - Status: SIGNED Entered: 07/17/2022 0757 IMPRESSION: 1. Stable postoperative cardiomediastinal silhou ette. 2. Stable pulmonary opacities. 3. Stable pleural effusions. Pleural fluid/thick ening extending over the left apex. No pneumothorax following th oracostomy tube removal. Impression By: Robert Ratliff M.D. ULTRASOUND - DUP VEIN VARUN 07/17 1519 Report Impression - Status: SIGNED [...] Washburn on 0 07/20/22 at 0520 RPT #:[id number] END OF REPORT 2022-07-18 16:17:00-00:00 [facility] Nephrology Progress Note REPORT#:[id number] REPORT STATUS: Signed DATE:07/18/22 TIME: 161 PATIENT: SHERRI ARCE UNIT #: [id number] ROOM/BED: [place] [address] : 42 AGE: 81 SEX: M ATTEND: Srinath Kaur MD ADM AUTHOR: Evelina Plaza MD * ALL edits or amendments must be made on the [employer]/computer document * Subjective Chief complaint: Feeling okay [...] 16 123/67 85.7 88 Room air 07/17 2199 84 28 97 07/17 1945 92 Room [...] Sodium Chloride (SODIUM CHLORIDE) 10 ML ASDIR [place] N IV (DC) Midodrine (PROAMATINE) 10 MG 0900,1300,1700 PO ( DC) Ipratropium [place] (ATROVENT) 500 MCG RTQ2H PRN PRN INH [...] TABLET) 17.2 MG BED TIME PO Ipratropium [place] (ATROVENT) 500 MCG RTQ4H INH Acetaminophen (TYLENOL) [...] Lidocaine HCl (LIDOCAINE HCL/PF) 0.5 ML ASDIR [place] N I-DERMAL (CKD) Mannitol (Mannitol 20%) 12.5 GM ASDIR PRN IV Sodium Chloride (SODIUM CHLORIDE 0.9%) 2,000 ML ASDIR PRN IV Tamsulosin HCl (Flomax 0.4 mg) 0.4 MG BEDTIME PO Physical Exam General appearance: alert, awake Head/eyes: atraumatic, normocephalic ENT: moist mucous membranes, normal nose Neck: non-tender, no JVD Extremities: no edema, no swelling Neuro/SCREW SUPERVISOR: alert, oriented X 3, normal speech Skin: [...] (Auto) (14.0 - 32.0 %) 8.5 L [place] % (Auto) (4.8 - 9.0 %) 8.8 Eos % (Auto) (0.3 - 3.7 %) 7.2 H Baso % (Auto) (0.0 - 2.0 %) 0.6 Neut # (Auto) (2.0 - 7.6 x10 3/uL) 9.05 H Lymph # (Auto) (1.0 - 3.8 x10 3/uL) 1.05 Smyth # (Auto) (0.1 - 0.8 x10 3/uL) [...] Electronically Signed by Evelina Plaza MD on 03/30 at 1623 RPT #:[id number] END OF REPORT 2022-07-18 15:13:00-00:00 [facility] Cardiothoracic Surgery Prog REPORT#:[id number] REPORT STATUS: Signed DATE:07/18/22 TIME: 1513 PATIENT: SHERRI ARCE UNIT #: [id number] ROOM/BED: [place] [address] : 42 AGE: 81 SEX: M ATTEND: Srinath Kaur MD ADM AUTHOR: Rosalind Toribio * ALL edits or amendments must be made on the [employer]/computer document * General Post-op: day 9 Status [...] distention Genitourinary: no waters Extremities: moves all Neuro/SCREW SUPERVISOR: alert, oriented X 3, normal speech, n [...] Sodium Chloride (SODIUM CHLORIDE) 10 ML ASDIR KY N IV (DC) Midodrine (PROAMATINE) 10 MG 0900,1300,1700 PO (DC) Ipratropium [place] (ATROVENT) 500 MCG RTQ2H PRN PRN INH [...] TABLET) 17.2 MG BED TIME PO Ipratropium [place] (ATROVENT) 500 MCG RTQ4H INH Acetaminophen (TYLENOL) [...] Lidocaine HCl (LIDOCAINE HCL/PF) 0.5 ML ASDIR KY N I-DERMAL (CKD) Mannitol (Mannitol 20%) 12.5 [...] (Auto) (14.0 - 32.0 %) 8.5 L Smyth % (Auto) (4.8 - 9.0 %) 8.8 Eos % (Auto) (0.3 - 3.7 %) 7.2 H Baso % (Auto) (0.0 - 2.0 %) 0.6 Neut # (Auto) (2.0 - 7.6 x10 3/uL) 9.05 H Lymph # (Auto) (1.0 - 3.8 x10 3/uL) 1.05 Smyth # (Auto) (0.1 - 0.8 x10 3/uL) [...] of coronary artery disease or o ther LA. [facility]. He was found to have a urinary [...] p dialysis cath, Re-evaluate on Thursday if [facility]p dialysis needed. Card: Remains in sinus rhythm. [...] back on suction to clear pneumo, CT drtmoed 200cc th is AM. on suction. Labs [...] dialysis chair Patient seen with Dr. Allie peña and discussed plan of care with multidisciplinary [...] Plan of care discussed with multidisciplinary david am and Dr. Schwarz. Consultants: cardiology, cardiovascular surgery, nephrology at 2058 at 1939 RPT #:[id number] END OF REPORT 2022-07-18 12:51[facility]-00[facility]00 [facility] REPORT#:[id number] REPORT STATUS: Signed DATE:07/18/22 TIME: 1251 PATIENT: SHERRI ARCE UNIT #: [id number] ROOM/BED: 3354-1 : 42 AGE: 81 SEX: M ATTEND: Srinath Kaur MD ADM AUTHOR: Srinath Kaur MD * ALL edits or amendments must be made on the el [employer]/computer document * Subjective Chief complaint: NO COMPLAINTS, AWAITS SNF APPROVAL WHERE DIALYSI S IS AVIALABLE. HPI: 81 y/o man with PMHx of HTN, Dyslipidemia that presented to [facility] last Thursday06/28/22 with chest pain and found to have a NSTEMI and also acute renal failure. Underwent cardiac c ath yesterday and found to have severe CAD including left main disease. Transfer here f or CABG evaluation. He also underwent HD Thursday and Thursday of this week. HD catheter was place at [facility]. Currently not having any chest pain. Had [...] Sodium Chloride (SODIUM CHLORIDE) 10 ML ASDIR KY N IV (DC) Midodrine (PROAMATINE) 10 MG 0900,1300,1700 PO ( DC) Ipratropium [place] (ATROVENT) 500 MCG RTQ2H PRN PRN INH [...] TABLET) 17.2 MG BED TIME PO Ipratropium [place] (ATROVENT) 500 MCG RTQ4H INH Acetaminophen (TYLENOL) [...] Lidocaine HCl (LIDOCAINE HCL/PF) 0.5 ML ASDIR P RN I-DERMAL (CKD) Mannitol (Mannitol 20%) 12.5 GM [...] rebound Extremities: no edema Musculoskeletal: normal inspection Neuro/SCREW SUPERVISOR: alert, oriented X 3, normal speech, n [...] - 2.40 mg/dL) 1.97 Laboratory Tests 07/18 0518 Hematology WBC (4.5 - 11.0 x10 3/uL) [...] (Auto) (14.0 - 32.0 %) 8.5 L Smyth % (Auto) (4.8 - 9.0 %) 8.8 Eos % (Auto) (0.3 - 3.7 %) 7.2 H Baso % (Auto) (0.0 - 2.0 %) 0.6 Neut # (Auto) (2.0 - 7.6 x10 3/uL) 9.05 H Lymph # (Auto) (1.0 - 3.8 x10 3/uL) 1.05 Smyth # (Auto) (0.1 - 0.8 x10 3/uL) [...] data: Recent Impressions: ULTRASOUND - DUP VEIN VARUN 07/17 1519 Report Impression - Status: SIGNED Entered: 07/17/2022 1545 IMPRESSION: No evidence of deep vein thrombosis. Superficial thrombus in the right greater saphen ous vein. Complex hypoechoic area in the right inguinal re gion without internal vascular flow or peripheral hyperemia m easuring 4.2 x 1.4 x 2.3 cm which may represent a hematoma. Impression By: StevenABKanu - Delmer Palma M.D. RADIOLOGY - XR CHEST 1 V 07/18 0559 Report Impression - Status: SIGNED Entered: 07/18/2022 2289 IMPRESSION: 1. Stable postoperative chest. 2. Stable [...] WITH DIALYSIS ACCESS, CONT WATERS , FLOMAX, 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 FROM 7.0 TO 4.3 NOW No prior [...] Discussion included: living will (none), power of employee benefits attorney (none), code status ( full code) Electronically Signed by Srinath Kaur MD on 07/18 at 1300 RPT #:[id number] END OF REPORT 2022-07-18 11:33:00-00:00 [facility] Cardiology Progress Note REPORT#:[id number] REPORT STATUS: Signed DATE:07/18/22 TIME: 1133 PATIENT: SHERRI ARCE UNIT #: [id number] ROOM/BED: [place] [address] : 42 AGE: 81 SEX: M ATTEND: Srinath Kaur MD ADM AUTHOR: Jyoti Browning REFORMATORY ATTENDANT * ALL edits or amendments must be made on the el [employer]/computer document * Subjective Chief complaint: Doing okay. [...] ASDIR PRN 07/15 1915 DC IV 08/15 1907 Sodium Chloride 10 ML ASDIR PRN 07/15 1915 DC IV 08/14 191 Midodrine 10 MG 0900,1300,1700 07/15 1300 DC PO 07/17 2058 1309 Ipratropium [place] 500 MCG RTQ2H PRN PRN 07/11 1821 AC 07/10 INH 08/10 1820 1302 Lactulose 20 GM DAILY PRN PRN 07/11 1245 AC 3 PO 08/10 1244 1411 Cyanocobalamin 500 MCG DAILY 07/11 09 AC 07/18 PO 08/10 0859 0941 Ferrous Sulfate 325 MG DAILY 07/11 09 AC 07/18 PO 08/10 0859 0942 Dopamine HCl/Dextrose 250 ML ASDIR 07/10 2100 D C 07/11 IV 08/09 Bisacodyl 10 MG ONCE [...] Sulfate 100 ML ASDIR PRN 07/09 0700 DC IV 08/08 0659 Magnesium Sulfate 50 ML ASDIR PRN 07/09 07 DC IV 08/08 0659 Potassium Chloride 50 ML ASDIR PRN 07/09 0700 DC IV 08/08 0659 Sodium Chloride 2,000 ML ASDIR PRN 07/09 0700 DC 07/12 IV 08/08 0659 0906 Sodium Phosphate 25 MMOL ASDIR PRN 07/09 07 DC Sodium Chloride 250 ML IV 08/08 0659 Sodium Phosphate 20 MMOL ASDIR PRN 07/09 07 DC Sodium Chloride 250 ML IV 08/08 0659 Sodium Phosphate 15 MMOL ASDIR PRN 07/09 07 DC Sodium Chloride 250 ML IV 08/08 0659 Pantoprazole 40 MG DAILY@0600 07/09 06 AC PO 08/08 0559 0538 Aspirin 81 MG DAILY 07/09 0020 AC 07/18 PO 08/08 0019 0941 Vasopressin 100 ML ASDIR 07/09 0015 DC 07/09 IV 08/08 001 2139 Docusate Sodium 100 MG BID 07/08 2100 AC 07/18 PO 08/07 2058 0941 Sennosides 17.2 MG BEDTIME 07/08 2100 AC 07/17 PO 08/07 2058 2100 Ipratropium [place] 500 MCG RTQ4H 07/08 1900 AC 07/18 [...] C 07/16 Dextrose IV 08/07 1829 0650 Nitroglycerin/ 250 ML ASDIR 07/08 1830 DC Dextrose IV 08/07 1829 Norepinephrine 250 ML TITRATE 07/08 1830 DC Bitartrate IV 08/07 1829 Ondansetron HCl 4 MG Q6H PRN PRN 07/08 1830 AC IV 08/07 1829 Potassium Chloride 100 ML ASDIR PRN 07/08 1830 D C IV 08/07 1829 Sodium Bicarbonate 50 MEQ [...] ASDIR PRN 07/03 1200 AC IV 08/03 115 Sodium Chloride 2,000 ML ASDIR PRN 07/03 1200 AC /07 IV 08/03 1155 1847 Tamsulosin HCl 0.4 MG BEDTIME 07/02 2144 AC 02/ 9 PO 08/01 2143 2100 24 hour [...] ormal temperature, no edema Musculoskeletal: normal inspection Neuro/SCREW SUPERVISOR: alert, oriented X 3, normal speech Skin: dry Psychiatry: normal affect Results Radiology data: Recent Impressions: ULTRASOUND - DUP VEIN VARUN 07/17 1519 Report Impression - Status: SIGNED [...] Report Impression - Status: SIGNED Entered: 07/18/2022 8899 IMPRESSION: 1. Stable postoperative chest. 2. Stable [...] M w/ PMHx: HTN, HLD presented to [facility] on 06/28/22 for chest pa in and sob. He was diagnosed NSTEMI. LHC showed multivessel CAD. Transferred to [facility] for CABG. - CAD/NSTEMI s/p CABG CABG [...] SNF pending Electronically Signed by Jyoti Browning NP on 0 07/18/22 at 1152 Electronically Signed by Liset Ennis MD on at 0753 RPT #:[id number] END OF REPORT 2022-07-18 07:14:00-00:00 [facility] Rehab Progress Note REPORT#:[id number] REPORT STATUS: Signed DATE:07/18/22 TIME: 713 PATIENT: SHERRI ARCE UNIT #: [id number] RO[place]BED: [facility] : 42 AGE: 81 SEX: M ATTEND: Srinath Karu MD ADM AUTHOR: Magdaleno Washburn * ALL edits or amendments must be made on the [employer]/computer document * Subjective Chief complaint: Rehab follow-up Doing well. Sitting up in chair Looks good today Denies pain or sob Pleasant Denies NAIK/N/V/D/CP 14 systems reviewed and neg. except that above. Objective General VS: Vital Signs: Date Time Temp Pulse Resp B/P B/P Pulse O2 O2 F low FiO2 Mean Ox Delivery Rate 07/18 0556 89 31 92 02 0400 88 28 92 07/18 0400 98.4 88 16 117/64 81.6 89 Room air 07/18 0200 87 31 90 02/ 0000 86 30 90 07/17 2345 98.8 88 16 123/67 85.7 88 Room air 07/17 2200 84 28 97 07/17 1946 92 Room air 07/17 1942 98.1 85 16 126/62 83.3 91 02 1600 23 02 1541 83 141/72 94 02/ 1508 82 76 92 02/ 1500 79 27 129/61 88 92 02/ 1430 79 28 93 02/ 1400 80 25 128/66 91 92 02/ 1330 77 26 93 02/ 1300 79 29 122/61 85 94 02/ 1230 81 30 93 02/ 1200 87 28 131/67 93 91 02/ 1130 78 24 93 02/ 1101 84 32 123/66 89 95 02/ 1100 83 31 95 02/ 1030 82 28 93 02/ 1019 93 30 133/61 88 93 02/ 1000 85 27 106/55 77 93 02/ 0930 92 44 92 02/ 0916 90 32 107/58 79 92 02 0900 98.1 02 0900 87 26 92 02/09 0830 83 27 92 02/ 0800 85 [...] Sodium Chloride (SODIUM CHLORIDE) 10 ML ASDIR KY N IV (DC) Midodrine (PROAMATINE) 10 MG 0900,1300,1700 PO ( DC) Ipratropium [place] (ATROVENT) 500 MCG RTQ2H PRN PRN INH [...] TABLET) 17.2 MG BED TIME PO Ipratropium [place] (ATROVENT) 500 MCG RTQ4H INH Acetaminophen (TYLENOL) [...] Lidocaine HCl (LIDOCAINE HCL/PF) 0.5 ML ASDIR KY N I-DERMAL (CKD) Mannitol (Mannitol 20%) 12.5 GM ASDIR PRN IV Sodium Chloride (SODIUM CHLORIDE 0.9%) 2,000 ML ASDIR PRN IV Tamsulosin HCl (Flomax 0.4 mg) 0.4 MG BEDTIME PO Functional Progress Functional progress: Weightbearing: STERNAL Ambulation Distance: 250 FT 200 FT Progression: Forward Backward Lateral, Right Lateral, Left Assistance Level: Supervision or Set-up Gait Deviations: SLOW Base of Support - Narrow [facility] Mobility: Yes Advanced Progression: No Effects of Treatment: Cardio tolerance improve d Function Improved Gait quality improved Post TX Precautions: In Bed, rails Up Call Light in Reach Nursing Notified Review Plan of Care: Yes PT charges: Gait Training 52915 Gait Cmt: PATIENT MOTIVATED AND PARTICIPATED W ELL WITH GAIT TRNG. 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 Impression By: HeidyL Yasmin Boo M.D. RADIOLOGY - XR CHEST 1 [...] Robert Ratliff M.D. ULTRASOUND - DUP VEIN VARUN 07/17 1519 Report Impression - Status: SIGNED [...] Washburn on 0 07/18/22 at 2052 RPT #:[id number] END OF REPORT 2022-07-17 13:57:00-00:00 [facility] ([facility]) Hospitalist Progress Note REPORT#:[id number] REPORT STATUS: Signed DATE:07/17/22 TIME: 1357 PATIENT: SHERRI ARCE UNIT #: [id number] ROOM/BED: [place] [address] : 42 AGE: 81 SEX: M ATTEND: Que Mcarthur MD ADM AUTHOR: Sarbjit Mcarthur MD * ALL edits or amendments must be made on the [employer]/computer document * Subjective Chief complaint: Status post CABG x5 on 07/09, Doing well today. Am bulated around the unit. HPI: 81 y/o man with PMHx of HTN, Dyslipidemia that presented to [facility] last Thursday06/28/22 with chest pain and found to have a NSTEMI and also acute renal failure. Underwent cardiac c ath yesterday and found to have severe CAD including left main disease. Transfer here f or CABG evaluation. He also underwent HD Thursday and Thursday of this week. HD catheter was place at [facility]. Currently not having any chest pain. Had chest pain with SOB when he presentted to the previous hospital. Objective General VS/I O: Vital Signs: Date Time Temp Pulse Resp B/P B/P Pulse O2 O2 F low FiO2 Mean Ox Delivery Rate 07/17 0900 98.1 07/17 0735 92 Room air 07/16 1999 97.8 07/16 1953 95 Room air 07/16 190 97.7 92 22 124/65 07/16 1700 79 26 121/63 86 95 07/16 1600 97.9 78 26 112/59 76 93 Room air 07/16 1600 78 26 112/59 80 93 07/16 1535 97 Room air 21 07/16 1530 79 25 109/60 78 93 07/16 1515 78 27 104/56 77 92 07/16 1500 97.5 75 24 110/55 02/08 1500 75 22 110/55 76 94 08 [...] no cyanosis, no edema Musculoskeletal: normal inspection Neuro/SCREW SUPERVISOR: alert, oriented X 3, normal speech, n [...] (Auto) (14.0 - 32.0 %) 7.2 L Smyth % (Auto) (4.8 - 9.0 %) 11.0 H Eos % (Auto) (0.3 - 3.7 %) 6.8 H Baso % (Auto) (0.0 - 2.0 %) 0.6 Neut # (Auto) (2.0 - 7.6 x10 3/uL) 7.90 H Lymph # (Auto) (1.0 - 3.8 x10 3/uL) 0.80 L Smyth # (Auto) (0.1 - 0.8 x10 3/uL) [...] RADIOLOGY - XR CHEST 1 V 07/17 7827 Report Impression - Status: SIGNED Entered: 07/17/2022 9590 IMPRESSION: 1. Stable postoperative cardiomediastinal silhou ette. [...] 6.5 s/p CABG 2 PRBC BT ordered 2/ Monitor H H Leukocytosis: -Afebrile Monitor WBC [...] attest that the foregoing medication list in [facility] medical record is true, accurate, and complete to the best of my knowled ge. Advanced Care Plan 65 or Older Discussed with: patient Discussion included: living will (none), power of employee benefits attorney (none), code status ( full code) at 1359 RPT #:[id number] END OF REPORT 2022-07-17 13:09:00-00:[address] [facility]) Urology Progress Note REPORT#:[id number] REPORT STATUS: Signed DATE:07/17/22 TIME: 1309 PATIENT: SHERRI ARCE UNIT #: [id number] ROOM/BED: [place] [address] : 42 AGE: 81 SEX: M ATTEND: [...] Pulse 92 07/16 190 Resp 22 07/16 1901 B/P Mean 86 07/16 1700 FiO2 21 [...] (Auto) (14.0 - 32.0 %) 7.2 L Smyth % (Auto) (4.8 - 9.0 %) 11.0 H Eos % (Auto) (0.3 - 3.7 %) 6.8 H Baso % (Auto) (0.0 - 2.0 %) 0.6 Neut # (Auto) (2.0 - 7.6 x10 3/uL) 7.90 H Lymph # (Auto) (1.0 - 3.8 x10 3/uL) 0.80 L Smyth # (Auto) (0.1 - 0.8 x10 3/uL) [...] RADIOLOGY - XR CHEST 1 V 07/17 9154 Report Impression - Status: SIGNED Entered: 07/17/2022 6322 IMPRESSION: 1. Stable postoperative cardiomediastinal silhou ette. 2. Stable pulmonary opacities. 3. Stable pleural effusions. Pleural fluid/thick ening extending over the left apex. No pneumothorax following th oracostomy tube removal. Impression By: Robert Ratliff M.D. Diagnosis, Assessment Plan Free Text A P: BPH with retention post-procedure, failed VT - Home with waters catheter, f/u in clinic, terri nue flomax at [address] [facility] #:[id number] END OF REPORT 2022-07-17 12:55:00-00:00 [facility] ([facility]) Nephrology Progress Note REPORT#:[id number] REPORT STATUS: Signed DATE:07/17/22 TIME: 1255 PATIENT: SHERRI ARCE UNIT #: [id number] ROOM/BED: [place] [address] : 42 AGE: 81 SEX: M ATTEND: Sam Mcarthru MD ADM AUTHOR: Evelina Plaza MD * ALL edits or amendments must be made on the [employer] document * Subjective Chief complaint: Feeling okay [...] / 1300 79 29 122/61 85 94 07/17 1230 81 30 93 02/ 1200 87 28 131/67 93 91 / 1130 78 24 93 / 1101 84 32 123/66 89 95 / 1100 83 31 95 / 1030 82 28 93 / 1019 93 30 133/61 88 93 / 1000 85 27 106/55 77 93 07/17 0930 92 44 92 07/17 0916 90 32 107/58 79 92 07/17 0900 98.1 07/17 0900 87 26 92 07/17 0830 83 27 92 07/17 0800 85 28 117/56 80 93 07/17 0735 92 Room air 07/17 0730 81 28 91 07/17 0700 86 28 91 / 2000 97.8 [...] Sodium (KEFZOL OR ANCEF) 2 GM PREOP PULMONARY NURSE PRACTITIONER IV (DC) Albumin Human (ALBUMINAR-25%) 12.5 GM ASDIR PRN IV Sodium Chloride (SODIUM CHLORIDE) 10 ML ASDIR KY N IV Midodrine (PROAMATINE) 10 MG 0900,1300,1700 PO Sodium Chloride (SODIUM CHLORIDE) 20 ML ASDIR IV (DC) Ipratropium [place] (ATROVENT) 500 MCG RTQ2H PRN PRN INH [...] TABLET) 17.2 MG BED TIME PO Ipratropium [place] (ATROVENT) 500 MCG RTQ4H INH Acetaminophen (TYLENOL) [...] Lidocaine HCl (LIDOCAINE HCL/PF) 0.5 ML ASDIR KY N I-DERMAL (CKD) Mannitol (Mannitol 20%) 12.5 GM ASDIR PRN IV Sodium Chloride (SODIUM CHLORIDE 0.9%) 2,000 ML ASDIR PRN IV Tamsulosin HCl (Flomax 0.4 mg) 0.4 MG BEDTIME PO Physical Exam General appearance: alert, awake, oriented Head/eyes: atraumatic, normocephalic ENT: moist mucous membranes, normal nose Neck: non-tender, no JVD Extremities: no edema, no swelling Neuro/SCREW SUPERVISOR: alert, oriented X 3, normal speech Skin: [...] (Auto) (14.0 - 32.0 %) 7.2 L Smyth % (Auto) (4.8 - 9.0 %) 11.0 H Eos % (Auto) (0.3 - 3.7 %) 6.8 H Baso % (Auto) (0.0 - 2.0 %) 0.6 Neut # (Auto) (2.0 - 7.6 x10 3/uL) 7.90 H Lymph # (Auto) (1.0 - 3.8 x10 3/uL) 0.80 L Smyth # (Auto) (0.1 - 0.8 x10 3/uL) [...] Robert Ratliff M.D. ULTRASOUND - DUP VEIN VARUN 07/17 1519 Report Impression - Status: SIGNED [...] Plaza MD on 02/28 at 1816 RPT #:[id number] END OF REPORT 2022-07-17 12:45:00-00:00 [facility] Critical Care Progress Note REPORT#:[id number] REPORT STATUS: Signed DATE:07/17/22 TIME: 1245 PATIENT: SHERRI ARCE UNIT #: [id number] ROOM/BED: [place] [address] : 42 AGE: 81 SEX: M ATTEND: Sam Mcarthur MD ADM AUTHOR: Jana Mittal MD * ALL edits or amendments must be made on the [employer]/computer document * Subjective Chief complaint: CABG HPI: This is 81 years old male with medical history s ignificant for HTN and dyslipidemia who presented to [facility] Thursday06/28/22 with chest pain and found [...] chair. New placement has been initiated with porter sample case Objective General VS/I O Last Documented: Result Date Time Temp 36.7 07/17 899 Pulse Ox 92 07/17 0735 O2 Delivery Room air 07/17 07 B/P 124/65 07/16 1902 Pulse 92 07/16 [...] Sodium (KEFZOL OR ANCEF) 2 GM PREOP PULMONARY NURSE PRACTITIONER IV (DC) Albumin Human (ALBUMINAR-25%) 12.5 GM ASDIR PRN IV Sodium Chloride (SODIUM CHLORIDE) 10 ML ASDIR KY N IV Midodrine (PROAMATINE) 10 MG 0900,1300,1700 PO Sodium Chloride (SODIUM CHLORIDE) 20 ML ASDIR IV (DC) Ipratropium [place] (ATROVENT) 500 MCG RTQ2H PRN PRN INH [...] Calcium Chloride (CALCIUM CHLORIDE) 2 GM ASDIR PRN IV Sodium Chloride (SODIUM [...] TABLET) 17.2 MG BED TIME PO Ipratropium [place] (ATROVENT) 500 MCG RTQ4H INH Acetaminophen (TYLENOL) [...] Lidocaine HCl (LIDOCAINE HCL/PF) 0.5 ML ASDIR KY N I-DERMAL (CKD) Mannitol (Mannitol 20%) 12.5 [...] (Auto) (14.0 - 32.0 %) 7.2 L Smyth % (Auto) (4.8 - 9.0 %) 11.0 H Eos % (Auto) (0.3 - 3.7 %) 6.8 H Baso % (Auto) (0.0 - 2.0 %) 0.6 Neut # (Auto) (2.0 - 7.6 x10 3/uL) 7.90 H Lymph # (Auto) (1.0 - 3.8 x10 3/uL) 0.80 L Smyth # (Auto) (0.1 - 0.8 x10 3/uL) [...] RADIOLOGY - XR CHEST 1 V 07/17 0809 Report Impression - Status: SIGNED Entered: 07/17/2022 0756 IMPRESSION: 1. Stable postoperative cardiomediastinal silhou ette. [...] Musculoskeletal: normal inspection, no muscle sp asm Neuro/SCREW SUPERVISOR: alert and oriented x3, CNII-XII gross ly [...] for GI prophylaxis. SCDs. Disposition SNF in [place] close to home. [facility] for dialysis [...] extremity study to rule o ut DVT. loan and credit manager is working on S NF placement with Dialysis bed Close to the patient' s home. Transfer to floor Consultants: cardiology, cardiovascular surgery, nephrology Quality: Gen Med Crit Care VTE Prophylaxis VTE prophylaxis initiated: yes Electronically Signed by Jana Mittal MD on 0 07/17/22 at 1448 RPT #:[id number] END OF REPORT 2022-07-17 09:16:00-00:00 [facility] ([facility]) Cardiology Progress Note REPORT#:[id number] REPORT STATUS: Signed DATE:07/17/22 TIME: 09 PATIENT: SHERRI ARCE UNIT #: [id number] ROOM/BED: [place] [address] : 42 AGE: 81 SEX: M ATTEND: Srinath Kaur MD ADM AUTHOR: Sonya Stacy ACNP * ALL edits or amendments must be made on the [employer]/computer document * Subjective Patient reports: No: complaints. [...] low FiO2 Mean Ox Delivery Rate 07/17 0735 92 Room air 07/16 2000 36.6 02/ 1953 95 Room air / 1902 36.5 92 22 124/65 02/ 1700 79 26 121/63 86 95 02/08 1600 36.6 78 26 112/59 76 93 Room air 02/ 1600 78 26 112/59 80 93 02/08 [...] Sodium (KEFZOL OR ANCEF) 2 GM PREOP O NCALL IV (DC) Albumin Human (ALBUMINAR-25%) 12.5 GM ASDIR PRN IV Sodium Chloride (SODIUM CHLORIDE) 10 ML ASDIR KY N IV Midodrine (PROAMATINE) 10 MG 0900,1300,1700 PO Sodium Chloride (SODIUM CHLORIDE) 20 ML ASDIR IV (DC) Sodium Bicarbonate (SODIUM BICARBONATE) 650 MG B ID PO (DC) Ipratropium [place] (ATROVENT) 500 MCG RTQ2H PRN PRN INH [...] TABLET) 17.2 MG BED TIME PO Ipratropium [place] (ATROVENT) 500 MCG RTQ4H INH Acetaminophen (TYLENOL) [...] Lidocaine HCl (LIDOCAINE HCL/PF) 0.5 ML ASDIR KY N I-DERMAL (CKD) Mannitol (Mannitol 20%) 12.5 [...] ormal temperature, no edema Musculoskeletal: normal inspection Neuro/SCREW SUPERVISOR: alert, oriented X 3, normal speech Skin: [...] (Auto) (14.0 - 32.0 %) 7.2 L Smyth % (Auto) (4.8 - 9.0 %) 11.0 H Eos % (Auto) (0.3 - 3.7 %) 6.8 H Baso % (Auto) (0.0 - 2.0 %) 0.6 Neut # (Auto) (2.0 - 7.6 x10 3/uL) 7.90 H Lymph # (Auto) (1.0 - 3.8 x10 3/uL) 0.80 L Smyth # (Auto) (0.1 - 0.8 x10 3/uL) [...] 3. Stable bibasilar airspace opacities Impression By: StevenCLNoreen Mcqueen RADIOLOGY - XR CHEST 1 V 07/17 [...] M w/ PMHx: HTN, HLD presented to [facility] on 06/28/22 for chest pa in and sob. He was diagnosed NSTEMI. LHC showed multivessel CAD. Transferred to [facility] for CABG. - CAD/NSTEMI s/p CABG CABG [...] Signed by Liset Ennis MD on at 5781 RPT #:[id number] END OF REPORT 2022-07-17 07:32:00-00:00 [facility] ([facility]) Cardiothoracic Surgery Prog REPORT#:[id number] REPORT STATUS: Signed DATE:07/17/22 TIME: 731 PATIENT: SHERRI ARCE UNIT #: [id number] ROOM/BED: [place] [address] : 42 AGE: 81 SEX: M ATTEND: [...] Room air 07/16 1952 B/P 124/65 07/16 190 Pulse 92 07/16 1902 Resp 22 07/16 [...] disease Nutrition signs and symptoms: ESTIMATED NEEDS S /P CABG Nutrition prescription: 1. RECOMMEND CONTINUE RE [...] distention Genitourinary: no waters Extremities: moves all Neuro/SCREW SUPERVISOR: alert, oriented X 3, normal speech, n o motor deficits Psychiatry: normal affect, normal mood Current Medications Medications: Active Meds + DC'd Last 24 Hrs Potassium Chloride (POTASSIUM CHLORIDE 10 MEQ TA B.ER) 10 MEQ ONCE ONE PO (DC) Amiodarone HCl (CORDARONE) 200 MG BID PO Cefazolin Sodium (KEFZOL OR ANCEF) 2 GM PREOP PULMONARY NURSE PRACTITIONER IV (DC) Albumin Human (ALBUMINAR-25%) 12.5 GM ASDIR PRN IV Sodium Chloride (SODIUM CHLORIDE) 10 ML ASDIR KY N IV Midodrine (PROAMATINE) 10 MG 0900,1300,1700 PO Sodium Chloride (SODIUM CHLORIDE) 20 ML ASDIR IV (DC) Sodium Bicarbonate (SODIUM BICARBONATE) 650 MG B ID PO (DC) Ipratropium [place] (ATROVENT) 500 MCG RTQ2H PRN PRN INH [...] TABLET) 17.2 MG BED TIME PO Ipratropium [place] (ATROVENT) 500 MCG RTQ4H INH Acetaminophen (TYLENOL) [...] Lidocaine HCl (LIDOCAINE HCL/PF) 0.5 ML ASDIR [place] N I-DERMAL (CKD) Mannitol (Mannitol 20%) 12.5 GM ASDIR PRN IV Sodium Chloride (SODIUM CHLORIDE 0.9%) 2,000 ML ASDIR PRN IV Tamsulosin HCl (Flomax 0.4 mg) 0.4 MG BEDTIME PO Results Findings/Data: Laboratory Tests 07/17 0320 Chemistry Sodium (134 - 147 mEq/L) [...] (Auto) (14.0 - 32.0 %) 7.2 L Smyth % (Auto) (4.8 - 9.0 %) 11.0 H Eos % (Auto) (0.3 - 3.7 %) 6.8 H Baso % (Auto) (0.0 - 2.0 %) 0.6 Neut # (Auto) (2.0 - 7.6 x10 3/uL) 7.90 H Lymph # (Auto) (1.0 - 3.8 x10 3/uL) 0.80 L Smyth # (Auto) (0.1 - 0.8 x10 3/uL) [...] Report Impression - Status: SIGNED Entered: 07/16/2022 8071 IMPRESSION: 1. Small left and stable small right layering pl eural effusion. 2. Left chest tube present. No pneumothorax. 3. Stable bibasilar airspace opacities Impression By: [email or web address] - Noreen Lambert Results: labs reviewed, vital signs stable, danilo turcios personally rev'd, x-ray personally reviewed, current med profile rev'd Quality: Trauma Gen Surg Advanced Care Plan 65 or Older Discussed with: patient Discussion included: living will (none), power of employee benefits attorney (none), code status ( full code) VTE Prophylaxis - General VTE prophylaxis initiated: yes Diagnosis, Assessment Plan Hospital course to date: This is a 81-year-old gentleman who presented to an outside hospital with complaints of chest pains while walking at his home on Thursday. He denies any previous history of coronary artery disease or o ther LA. [facility]. He was found to have a urinary [...] p dialysis cath, Re-evaluate on Thursday if mcfp dialysis needed. Card: Remains in sinus rhythm. [...] Trend labs this afternoon Bowel regimen, +gas Awters catheter discontinued per urology- voiding trial this [...] dialysis chair Patient seen with Dr. Allie peña and discussed plan of care with multidisciplinary [...] 0 07/17/22 at 1431 at 1945 RPT #:[id number] END OF REPORT 2022-07-16 20:47:00-00:[address] [facility] Hospitalist Progress Note REPORT#:[id number] REPORT STATUS: Signed DATE:07/16/22 TIME: 2046 PATIENT: SHERRI ARCE UNIT #: [id number] ROOM/BED: [place] [address] : 42 AGE: 81 SEX: M ATTEND: Sam Mcarthur MD ADM AUTHOR: Sarbjit Mcarthur MD * ALL edits or amendments must be made on the [employer]/computer document * Subjective Chief complaint: Status post CABG x5 on 07/09, Doing well today. Am bulated around the unit. HPI: 81 y/o man with PMHx of HTN, Dyslipidemia that presented to [facility] last Thursday06/28/22 with chest pain and found to have a NSTEMI and also acute renal failure. Underwent cardiac c ath yesterday and found to have severe CAD including left main disease. Transfer here f or CABG evaluation. He also underwent HD Thursday and Thursday of this week. HD catheter was place at [facility]. Currently not having any chest pain. Had [...] 02/07 2200 80 40 113/56 80 97 /07 2130 83 33 110/62 79 96 02/07 [...] no cyanosis, no edema Musculoskeletal: normal inspection Neuro/SCREW SUPERVISOR: alert, oriented X 3, normal speech, n [...] (Auto) (14.0 - 32.0 %) 7.1 L Smyth % (Auto) (4.8 - 9.0 %) 12.2 H Eos % (Auto) (0.3 - 3.7 %) 6.9 H Baso % (Auto) (0.0 - 2.0 %) 0.7 Neut # (Auto) (2.0 - 7.6 x10 3/uL) 7.58 Lymph # (Auto) (1.0 - 3.8 x10 3/uL) 0.77 L Smyth # (Auto) (0.1 - 0.8 x10 3/uL) [...] Discussion included: living will (none), power of employee benefits attorney (none), code status ( full code) at 2044 RPT #:[id number] END OF REPORT 2022-07-16 18:38:00-00:00 [facility] ([facility]) Critical Care Progress Note REPORT#:[id number] REPORT STATUS: Signed DATE:07/16/22 TIME: 1837 PATIENT: SHERRI ARCE UNIT #: [id number] ROOM/BED: [place] [address] : 42 AGE: 81 SEX: M ATTEND: Sam Mcarthur MD ADM AUTHOR: Jana Mittal MD * ALL edits or amendments must be made on the el [employer]/computer document * Subjective Chief complaint: CABG HPI: This is 81 years old male with medical history s ignificant for HTN and dyslipidemia who presented to [facility] Thursday06/28/22 with chest pain and found [...] 21 07/16 1535 O2 Flow Rate 3 02/06 1151 24 hour I O ending at [...] Sodium (KEFZOL OR ANCEF) 2 GM PREOP PULMONARY NURSE PRACTITIONER IV (CKD) Albumin Human (ALBUMINAR-25%) 12.5 GM ASDIR PRN IV Sodium Chloride (SODIUM CHLORIDE) 10 ML ASDIR KY N IV Midodrine (PROAMATINE) 10 MG 0900,1300,1700 PO Sodium Chloride (SODIUM CHLORIDE) 20 ML ASDIR I V Sodium Bicarbonate (SODIUM BICARBONATE) 650 MG B ID PO (DC) Ipratropium [place] (ATROVENT) 500 MCG RTQ2H PRN PRN INH [...] TABLET) 17.2 MG BED TIME PO Ipratropium [place] (ATROVENT) 500 MCG RTQ4H INH Acetaminophen (TYLENOL) [...] Lidocaine HCl (LIDOCAINE HCL/PF) 0.5 ML ASDIR KY N I-DERMAL (CKD) Mannitol (Mannitol 20%) 12.5 [...] (Auto) (14.0 - 32.0 %) 7.1 L Smyth % (Auto) (4.8 - 9.0 %) 12.2 H Eos % (Auto) (0.3 - 3.7 %) 6.9 H Baso % (Auto) (0.0 - 2.0 %) 0.7 Neut # (Auto) (2.0 - 7.6 x10 3/uL) 7.58 Lymph # (Auto) (1.0 - 3.8 x10 3/uL) 0.77 L Smyth # (Auto) (0.1 - 0.8 x10 3/uL) [...] Musculoskeletal: normal inspection, no muscle sp asm Neuro/SCREW SUPERVISOR: alert and oriented x3, CNII-XII gross ly [...] for GI prophylaxis. SCDs. Disposition SNF in [place] close to home. [facility] silva for dialysis bed Daughter was updated about this plan by me. Consultants: cardiology, cardiovascular surgery, nephrology Quality: Gen Med Crit Care VTE Prophylaxis VTE prophylaxis initiated: yes Electronically Signed by Jana Mittal MD on 0 07/17/22 at 1245 RPT #:[id number] END OF REPORT 2022-07-16 11:30:00-00:00 [facility] ([facility]) Cardiology Progress Note REPORT#:[id number] REPORT STATUS: Signed DATE:07/16/22 TIME: 1130 PATIENT: SHERRI ARCE UNIT #: [id number] [place] [facility] : [place] AGE: 81 SEX: M ATTEND: Srinath Kaur MD ADM AUTHOR: Sonya Stacy DAY GUARD * ALL edits or amendments must be made on the [employer]/computer document * Subjective Patient reports: No: complaints. [...] 07/16 1100 82 25 112/58 78 94 /08 1000 83 28 103/58 78 92 07/16 0915 82 26 94/52 71 94 07/16 0800 84 28 100/55 75 95 07/16 0845 87 27 112/58 82 93 07/16 0831 90 27 101/50 71 91 07/16 0815 87 29 93/54 70 93 07/16 0800 36.7 88 25 101/54 69 95 Room air 07/16 0800 88 25 101/54 74 95 07/16 0648 94 Room air 21 07/16 0646 93 24 122/59 82 65 02/08 0730 [...] 116/60 81 97 02/07 2000 36.4 02/07 2000 80 30 96/51 70 96 02/07 1950 [...] 02/07 1637 72 23 112/61 80 96 02/ 1500 75 22 100/58 76 94 02 1400 79 26 105/61 78 93 02/ 1300 80 28 97/56 73 96 07/15 1200 80 30 88/52 65 93 PATIENT WEIGHT: Weight (lb): 200 Weight (oz): 13.46 Weight (kg): 91.100 Medications: Active Meds + DC'd Last 24 Hrs Amiodarone HCl (CORDARONE) 200 MG BID PO Cefazolin Sodium (KEFZOL OR ANCEF) 2 GM PREOP PULMONARY NURSE PRACTITIONER IV (CKD) Albumin Human (ALBUMINAR-25%) 12.5 GM ASDIR PRN IV Sodium Chloride (SODIUM CHLORIDE) 10 ML ASDIR KY N IV Phenylephrine HCl (Phenylephrine PF 500 [...] BICARBONATE) 650 MG B ID PO Ipratropium [place] (ATROVENT) 500 MCG RTQ2H PRN PRN INH [...] TABLET) 17.2 MG BED TIME PO Ipratropium [place] (ATROVENT) 500 MCG RTQ4H INH Acetaminophen (TYLENOL) [...] IV Sodium Bicarbonate (SODIUM BICARBONATE) 50 MEQ ASDIR PRN IV Albumin Human (ALBUMINAR-25%) 12.5 GM ASDIR PRN IV Heparin Sodium (Porcine) (HEPARIN SODIUM) 3,000 UNIT ASDIR PRN DIALYSIS Lidocaine HCl (LIDOCAINE HCL/PF) 0.5 ML ASDIR KY N I-DERMAL (CKD) Mannitol (Mannitol 20%) 12.5 [...] ormal temperature, no edema Musculoskeletal: normal inspection Neuro/SCREW SUPERVISOR: alert, oriented X 3, normal speech Skin: [...] (Auto) (14.0 - 32.0 %) 7.1 L Smyth % (Auto) (4.8 - 9.0 %) 12.2 H Eos % (Auto) (0.3 - 3.7 %) 6.9 H Baso % (Auto) (0.0 - 2.0 %) 0.7 Neut # (Auto) (2.0 - 7.6 x10 3/uL) 7.58 Lymph # (Auto) (1.0 - 3.8 x10 3/uL) 0.77 L Smyth # (Auto) (0.1 - 0.8 x10 3/uL) [...] M w/ PMHx: HTN, HLD presented to [facility] on 06/28/22 for chest pa in and sob. He was diagnosed NSTEMI. LHC showed multivessel CAD. Transferred to [facility] for CABG. - CAD/NSTEMI s/p CABG CABG [...] Liset Ennis MD on at 1057 RPT #:[id number] END OF REPORT 2022-07-16 10:51:00-00:00 HCACL [facility] Cardiothoracic Surgery Prog REPORT#:[id number] REPORT STATUS: Signed DATE:07/16/22 TIME: 1051 PATIENT: SHERRI ARCE UNIT #: [id number] ROOM/BED: [place] [address] : 42 AGE: 81 SEX: M ATTEND: Srinath Kaur MD ADM AUTHOR: Gianna Hoover * ALL edits or amendments must be made on the [employer]/computer document * General Post-op: day 8 Status [...] Result Date Time Pulse Ox 95 07/16 0900 B/P 100/55 07/16 0800 B/P Mean 75 07/16 0800 Pulse 84 07/16 0900 Resp 28 07/16 0900 O2 Delivery Room air 07/16 799 Temp [...] distention Genitourinary: no waters Extremities: moves all Neuro/SCREW SUPERVISOR: alert, oriented X 3, normal speech, n o motor deficits Psychiatry: normal affect, normal mood Current Medications Medications: Active Meds + DC'd Last 24 Hrs Amiodarone HCl (CORDARONE) 200 MG BID PO Cefazolin Sodium (KEFZOL OR ANCEF) 2 GM PREOP PULMONARY NURSE PRACTITIONER IV (CKD) Albumin Human (ALBUMINAR-25%) 12.5 GM ASDIR PRN IV Sodium Chloride (SODIUM CHLORIDE) 10 ML ASDIR KY N IV Phenylephrine HCl (Phenylephrine PF 500 [...] BICARBONATE) 650 MG B ID PO Ipratropium [place] (ATROVENT) 500 MCG RTQ2H PRN PRN INH [...] (Senna Lax 8.6 MG TABLET) 17.2 MG BE DTIME PO Ipratropium [place] (ATROVENT) 500 MCG RTQ4H INH Acetaminophen (TYLENOL) [...] Lidocaine HCl (LIDOCAINE HCL/PF) 0.5 ML ASDIR KY N I-DERMAL (CKD) Mannitol (Mannitol 20%) 12.5 [...] (Auto) (14.0 - 32.0 %) 7.1 L Smyth % (Auto) (4.8 - 9.0 %) 12.2 H Eos % (Auto) (0.3 - 3.7 %) 6.9 H Baso % (Auto) (0.0 - 2.0 %) 0.7 Neut # (Auto) (2.0 - 7.6 x10 3/uL) 7.58 Lymph # (Auto) (1.0 - 3.8 x10 3/uL) 0.77 L Smyth # (Auto) (0.1 - 0.8 x10 3/uL) [...] tube. Otherwis e, stable exam. Impression By: [email or web address] - Ranjan Sesay M.D. Results: labs reviewed, vital signs [...] of coronary artery disease or o ther LA. [facility] He was found to have a urinary [...] p dialysis cath, Re-evaluate on Thursday if mcfp dialysis needed. Card: Remains in sinus rhythm. [...] Eating well Continue PT/OT- ambulation Transfer to [facility] intermediate care unit Discharge planning for SNF- CM following and to set up dialysis chair Patient seen with Dr. Allie peña and discussed plan of care with multidisciplinary team. Consultants: cardiology, cardiovascular surgery, nephrology Electronically Signed by Gianna Hoover on 0 07/17/22 at 1430 at 3245 RPT #:[id number] END OF REPORT 2022-07-16 09:02:00-00:00 [facility] RE[facility]#:[id number] REPORT STATUS: Signed DATE:07/16/22 TIME: 901 PATIENT: SHERRI ARCE UNIT #: [id number] ROOM/BED: [place] [address] : 42 AGE: 81 SEX: M ATTEND: Sam Mcarthur MD ADM AUTHOR: Florencia Washburn NP * ALL edits or amendments must be made on the el [employer]/computer document * Subjective Chief complaint: Rehab follow-up [...] Sodium (KEFZOL OR ANCEF) 2 GM PREOP PULMONARY NURSE PRACTITIONER IV (CKD) Albumin Human (ALBUMINAR-25%) 12.5 GM ASDIR PRN IV Sodium Chloride (SODIUM CHLORIDE) 10 ML ASDIR KY N IV Phenylephrine HCl (Phenylephrine PF 500 [...] 650 MG B ID PO (DC) Ipratropium [place] (ATROVENT) 500 MCG RTQ2H PRN PRN INH [...] TABLET) 17.2 MG BED TIME PO Ipratropium [place] (ATROVENT) 500 MCG RTQ4H INH Acetaminophen (TYLENOL) [...] Lidocaine HCl (LIDOCAINE HCL/PF) 0.5 ML ASDIR KY N I-DERMAL (CKD) Mannitol (Mannitol 20%) 12.5 [...] normal, meagan l muscle mass, normal tone 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 at 1257 RPT #:[id number] END OF REPORT 2022-07-16 07:53:00-00:00 HCACL [facility] ([facility]) Nephrology Progress Note REPORT#:[id number] REPORT STATUS: Signed DATE:07/16/22 TIME: 0753 PATIENT: SHERRI ARCE UNIT #: [id number] ROOM/BED: [place] [address] : 42 AGE: 81 SEX: M ATTEND: Sam Mcarthur MD ADM AUTHOR: Evelina Plaza MD * ALL edits or amendments must be made on the [employer] document * Subjective Chief complaint: Feeling okay and has no complaints at this time. Objective General VS/I O: Vital Signs: Date Time Temp Pulse Resp B/P B/P Pulse O2 O2 F low FiO2 Mean Ox Delivery Rate / 1139 100 Room air 21 02/08 1100 [...] 24 hour I O ending at 0700: 08 0700 02/07 1900 Intake Total 500 720 [...] Sodium (KEFZOL OR ANCEF) 2 GM PREOP PULMONARY NURSE PRACTITIONER IV (CKD) Albumin Human (ALBUMINAR-25%) 12.5 GM ASDIR PRN IV Sodium Chloride (SODIUM CHLORIDE) 10 ML ASDIR KY N IV Phenylephrine HCl (Phenylephrine PF 500 [...] BICARBONATE) 650 MG B ID PO Ipratropium [place] (ATROVENT) 500 MCG RTQ2H PRN PRN INH [...] TABLET) 17.2 MG BED TIME PO Ipratropium [place] (ATROVENT) 500 MCG RTQ4H INH Acetaminophen (TYLENOL) [...] Lidocaine HCl (LIDOCAINE HCL/PF) 0.5 ML ASDIR KY N I-DERMAL (CKD) Mannitol (Mannitol 20%) 12.5 GM ASDIR PRN IV Sodium Chloride (SODIUM CHLORIDE 0.9%) 2,000 ML ASDIR PRN IV Tamsulosin HCl (Flomax 0.4 mg) 0.4 MG BEDTIME PO Physical Exam Head/eyes: atraumatic, normocephalic ENT: moist mucous membranes, normal nose Neck: non-tender, no JVD Extremities: no edema, no swelling Neuro/SCREW SUPERVISOR: alert, oriented X 3, normal speech Skin: [...] (Auto) (14.0 - 32.0 %) 7.1 L Smyth % (Auto) (4.8 - 9.0 %) 12.2 H Eos % (Auto) (0.3 - 3.7 %) 6.9 H Baso % (Auto) (0.0 - 2.0 %) 0.7 Neut # (Auto) (2.0 - 7.6 x10 3/uL) 7.58 Lymph # (Auto) (1.0 - 3.8 x10 3/uL) 0.77 L Smyth # (Auto) (0.1 - 0.8 x10 3/uL) [...] tube. Otherwis e, stable exam. Impression By: Aguila Sesay M.D. RADIOLOGY - XR CHEST 1 [...] Plaza MD on 01/28 at 1221 RPT #:[id number] END OF REPORT 2022-07-15 20:00:00-00:[address] [facility] Hospitalist Progress Note REPORT#:[id number] REPORT STATUS: Signed DATE:07/15/22 TIME: 1999 PATIENT: SHERRI ARCE UNIT #: [id number] ROOM/BED: [place] [address] : 42 AGE: 81 SEX: M ATTEND: Sam Mcarthur MD ADM AUTHOR: Sarbjit Mcarthur MD * ALL edits or amendments must be made on the el [employer]/computer document * Subjective Chief complaint: Status post CABG x5 on 07/09, Doing well today. Am bulated around the unit. HPI: 81 y/o man with PMHx of HTN, Dyslipidemia that presented to [facility] last Thursday06/28/22 with chest pain and found to have a NSTEMI and also acute renal failure. Underwent cardiac c ath yesterday and found to have severe CAD including left main disease. Transfer here f or CABG evaluation. He also underwent HD Thursday and Thursday of this week. HD catheter was place at [facility]. Currently not having any chest pain. Had chest pain with SOB when he presentted to the previous hospital. Objective General VS/I O: Vital Signs: Date Time Temp Pulse Resp B/P B/P Pulse O2 O2 F low FiO2 Mean Ox Delivery Rate 02/ 1900 80 23 89/53 68 97 02/07 [...] 78 93 02/07 0100 88 30 93 07/15 0030 90 [...] no cyanosis, no edema Musculoskeletal: normal inspection Neuro/SCREW SUPERVISOR: alert, oriented X 3, normal speech, n [...] (Auto) (14.0 - 32.0 %) 5.4 L Smyth % (Auto) (4.8 - 9.0 %) 10.3 H Eos % (Auto) (0.3 - 3.7 %) 6.3 H Baso % (Auto) (0.0 - 2.0 %) 0.8 Neut # (Auto) (2.0 - 7.6 x10 3/uL) 10.83 H Lymph # (Auto) (1.0 - 3.8 x10 3/uL) 0.78 L Smyth # (Auto) (0.1 - 0.8 x10 3/uL) [...] Discussion included: living will (none), power of employee benefits attorney (none), code status ( full code) at 2000 RPT #:[id number] END OF REPORT 2022-07-15 18:11:00-00:00 HC[facility]L [facility] ([facility]) Nephrology Progress Note REPORT#:[id number] REPORT STATUS: Signed DATE:07/15/22 TIME: 1810 PATIENT: SHERRI ARCE UNIT #: [id number] ROOM/BED: [place] [address] : 42 AGE: 81 SEX: M ATTEND: Sam Mcarthur MD ADM AUTHOR: Evelina Plaza MD * ALL edits or amendments must be made on the el [employer]/computer document * Subjective Chief complaint: he was in OR for TDC placement. Objective General VS/I O: Vital Signs: Date Time Temp Pulse Resp B/P B/P Pulse O2 O2 F low FiO2 Mean Ox Delivery Rate 02 1500 75 22 100/58 76 94 02/07 [...] 2100 80 24 95 02/06 1999 98.3 /1999 84 27 123/60 83 98 02/06 1942 [...] Sodium (KEFZOL OR ANCEF) 2 GM PREOP PULMONARY NURSE PRACTITIONER IV (CKD) Phenylephrine HCl (Phenylephrine PF 500 mg/5 mL Inj) 0 .STK-MED ONE .ROUTE (DC) Cefazolin Sodium (KEFZOL OR ANCEF) 0 .STK-MED ON E .ROUTE (DC) Propofol (DIPRIVAN 200MG/20ML INJECTION) 0 .STK -MED ONE IV (DC) Fentanyl Citrate (SUBLIMAZE) 0 [...] BICARBONATE) 650 MG B ID PO Ipratropium [place] (ATROVENT) 500 MCG RTQ2H PRN PRN INH [...] TABLET) 17.2 MG BED TIME PO Ipratropium [place] (ATROVENT) 500 MCG RTQ4H INH Acetaminophen (TYLENOL) [...] Lidocaine HCl (LIDOCAINE HCL/PF) 0.5 ML ASDIR KY N I-DERMAL (CKD) Mannitol (Mannitol 20%) 12.5 [...] Plaza MD on 12/28 at 1819 RPT #:[id number] END OF REPORT 2022-07-15 16:40:00-00:00 [id number] [place] [address] PATIENT NAME: SHERRI ARCE ADMIT DATE: 07/02/22 ACCOUNT NO: [id number] [place]OM NO: [facility] [place] AGE: 81 REPORT TYPE: OPERATIVE REPORT SEX: M ADMITTING PHYSICIAN:Srinath Kaur MD ATTENDING PHYSICIAN:Srinath Kaur MD OPERATION DATE: 07/15/2022 PREOPERATIVE DIAGNOSIS: End-stage renal disease on hemodialysis. POSTOPERATIVE DIAGNOSIS: End-stage renal disease on hemodialysis. PROCEDURE: 1. Placement of tunneled dialysis catheter (BioF lo DuraMax 28 cm). 2. Cannulation of the internal jugular vein unde r ultrasound guidance. SURGEON: Lina Schwarz MD FIELD HORTICULTURAL SPECIALTY GROWER: None. ANESTHESIOLOGIST: Dr. Adams. ANESTHESIA: MAC. ESTIMATED [...] a breakable sheath was placed in the international broadcast music librarian al jugular vein over the guidewire. The dialysis catheter tip was then pa ssed through the breakable sheath into the right [...] Date Transcribed: 07/15/2022 23:26:18 AC/SVR Receipt ID: [id number] Authenticated and Edited by Vinay Schwarz MD On 07/18/22 4:47:58 PM at 0451 PATIENT NAME: SHERRI ARCE 2022-07-15 12:55:00-00:00 [facility] REPORT#:[id number] REPORT STATUS: Signed DATE:07/15/22 TIME: 1255 PATIENT: SHERRI ARCE UNIT #: [id number] ROOM/BED: [place] [address] : 42 AGE: 81 SEX: M ATTEND: Srinath Kaur MD ADM AUTHOR: Sonya Stacy CNP * ALL edits or amendments must be made on the [employer] document * Subjective Comments: OOB to chair, [...] low FiO2 Mean Ox Delivery Rate 02/07 0900 80 28 101/55 74 94 [...] Sodium (KEFZOL OR ANCEF) 2 GM PREOP PULMONARY NURSE PRACTITIONER IV (CKD) Midodrine (PROAMATINE) 10 MG 0900,1300,1700 [...] BICARBONATE) 650 MG B ID PO Ipratropium [place] (ATROVENT) 500 MCG RTQ2H PRN PRN INH [...] TABLET) 17.2 MG BED TIME PO Ipratropium [place] (ATROVENT) 500 MCG RTQ4H INH Acetaminophen (TYLENOL) [...] Lidocaine HCl (LIDOCAINE HCL/PF) 0.5 ML ASDIR KY N I-DERMAL (CKD) Mannitol (Mannitol 20%) 12.5 GM ASDIR PRN IV Sodium Chloride (SODIUM CHLORIDE 0.9%) 2,000 ML ASDIR PRN IV Tamsulosin HCl (Flomax 0.4 mg) 0.4 MG BEDTIME PO Status post: 07/08/22 CABG x 5 (MISTYR-LAD, SVG-Ladonna, SVG-OM1< SV G-OM3, SVG-PDA) ALAA Physical [...] ormal temperature, no edema Musculoskeletal: normal inspection Neuro/SCREW SUPERVISOR: alert, oriented X 3, normal speech Skin: [...] (Auto) (14.0 - 32.0 %) 5.4 L Smyth % (Auto) (4.8 - 9.0 %) 10.3 H Eos % (Auto) (0.3 - 3.7 %) 6.3 H Baso % (Auto) (0.0 - 2.0 %) 0.8 Neut # (Auto) (2.0 - 7.6 x10 3/uL) 10.83 H Lymph # (Auto) (1.0 - 3.8 x10 3/uL) 0.78 L Smyth # (Auto) (0.1 - 0.8 x10 3/uL) [...] Sesay M.D. CAT SCAN - CT GUID [facility] (Biopsy/Asp) 07/14 1509 Report Impression - Status: SIGNED Entered: 07/14/2022 1519 IMPRESSION: CT-guided left chest tube placement. Impression By: [email or web address] Tam Noel RADIOLOGY - XR CHEST 1 V 07/15 0655 Report Impression - Status: SIGNED Entered: 07/15/2022 0727 IMPRESSION: Left apical and basilar chest tubes. No pneumoth orax. Small bilateral pleural effusions. Bibasilar airspace opacities, mildly worsened. Impression By: [email or web address] - Yogesh Prasad Results: labs reviewed, vital signs reviewed, [facility] personally rev'd Telemetry Interpretation: sinus rhythm Diagnosis, Assessment Plan Plan discussed with: patient, nurse Free Text DxA P Notes Free Text DxA P Notes: Mr. Arce is a pleasant 81 y/o M w/ PMHx: HTN, HLD presented to [facility] on 06/28/22 for chest pa in and [...] and diffuse 50-60% dRCA. He transferred to [facility] for CABG. - CAD/NSTEMI s/p CABG [...] Liset Ennis MD on at 1057 RPT #:[id number] END OF REPORT 2022-07-15 12:32:00-00:00 [facility] Critical Care Progress Note REPORT#:[id number] REPORT STATUS: Signed DATE:07/15/22 TIME: 1232 PATIENT: SHERRI ARCE UNIT #: [id number] ROOM/BED: [place] [address] : 42 AGE: 81 SEX: M ATTEND: Sam Mcarthur MD ADM AUTHOR: Jana Mittal MD * ALL edits or amendments must be made on the el [employer]/computer document * Subjective Chief complaint: CABG HPI: This is 81 years old male with medical history s ignificant for HTN and dyslipidemia who presented to [facility] Thursday06/28/22 with chest pain and found [...] Resp 28 07/15 899 Temp 36.7 07/15 08 O2 Delivery Room air 07/14 1942 FiO2 [...] Sodium (KEFZOL OR ANCEF) 2 GM PREOP PULMONARY NURSE PRACTITIONER IV (CKD) Midodrine (PROAMATINE) 10 MG 0900,1300,1700 [...] Dextrose/Water (DEXTROSE 10% IN WATER) 250 ML S TAT STA IV (DC) Insulin Human Regular (HUMAN [...] BICARBONATE) 650 MG B ID PO Ipratropium [place] (ATROVENT) 500 MCG RTQ2H PRN PRN INH [...] TABLET) 17.2 MG BED TIME PO Ipratropium [place] (ATROVENT) 500 MCG RTQ4H INH Acetaminophen (TYLENOL) [...] Lidocaine HCl (LIDOCAINE HCL/PF) 0.5 ML ASDIR KY N I-DERMAL (CKD) Mannitol (Mannitol 20%) 12.5 [...] (Auto) (14.0 - 32.0 %) 5.4 L Smyth % (Auto) (4.8 - 9.0 %) 10.3 H Eos % (Auto) (0.3 - 3.7 %) 6.3 H Baso % (Auto) (0.0 - 2.0 %) 0.8 Neut # (Auto) (2.0 - 7.6 x10 3/uL) 10.83 H Lymph # (Auto) (1.0 - 3.8 x10 3/uL) 0.78 L Smyth # (Auto) (0.1 - 0.8 x10 3/uL) [...] Report Impression - Status: SIGNED Entered: 07/14/2022 7427 IMPRESSION: Interval placement of left chest tube near the a pex with decreased size of left pneumothorax now small. Otherwise, stable exam. Impression By: [email or web address] Yasmin Sesay M.D. CAT SCAN - CT GUID [facility] (Biopsy/Asp) 07/14 1509 Report Impression - Status: SIGNED Entered: 07/14/2022 1519 IMPRESSION: CT-guided left chest tube placement. Impression By: [email or web address] Tam Noel RADIOLOGY - XR CHEST 1 V [...] Musculoskeletal: normal inspection, no muscle sp asm Neuro/SCREW SUPERVISOR: alert and oriented x3, CNII-XII gross ly [...] and GI prophylaxis with DAPT and PPI 07/13 Remains neuro intact, pain appears well controll [...] MD on 0 07/15/22 at 1259 RPT #:[id number] END OF REPORT 2022-07-15 09:49:00-00:[address] [facility] Cardiothoracic Surgery Prog REPORT#:[id number] REPORT STATUS: Signed DATE:07/15/22 TIME: 948 PATIENT: SHERRI ARCE UNIT #: [id number] ROOM/BED: [place] [address] : 42 AGE: 81 SEX: M ATTEND: Srinath Kaur MD ADM AUTHOR: Gianna Hoover * ALL edits or amendments must be made on the el [employer]/computer document * General Post-op: day 7 Status [...] Ox 94 07/15 899 B/P 101/55 07/15 0800 B/P Mean 74 07/15 0900 Pulse 80 [...] distention Genitourinary: no waters Extremities: moves all Neuro/SCREW SUPERVISOR: alert, oriented X 3, normal speech, n [...] BICARBONATE) 650 MG B ID PO Ipratropium [place] (ATROVENT) 500 MCG RTQ2H PRN PRN INH [...] TABLET) 17.2 MG BED TIME PO Ipratropium [place] (ATROVENT) 500 MCG RTQ4H INH Acetaminophen (TYLENOL) [...] Lidocaine HCl (LIDOCAINE HCL/PF) 0.5 ML ASDIR [place] N I-DERMAL (CKD) Mannitol (Mannitol 20%) 12.5 [...] - 2.40 mg/dL) 2.36 Laboratory Tests 07/15 032 Hematology WBC (4.5 - 11.0 x10 3/uL) [...] (Auto) (14.0 - 32.0 %) 5.4 L Smyth % (Auto) (4.8 - 9.0 %) 10.3 H Eos % (Auto) (0.3 - 3.7 %) 6.3 H Baso % (Auto) (0.0 - 2.0 %) 0.8 Neut # (Auto) (2.0 - 7.6 x10 3/uL) 10.83 H Lymph # (Auto) (1.0 - 3.8 x10 3/uL) 0.78 L Smyth # (Auto) (0.1 - 0.8 x10 3/uL) [...] Report Impression - Status: SIGNED Entered: 07/14/2022 1950 IMPRESSION: Interval placement of left chest tube near the a pex with decreased size of left pneumothorax now small. Otherwise, stable exam. Impression By: [email or web address] - Ranjan Sesay M.D. CAT SCAN - CT GUID NDL [facility] (Biopsy/Asp) 07/14 1509 Report Impression - Status: SIGNED Entered: 07/14/2022 1519 IMPRESSION: CT-guided left chest tube placement. Impression By: [email or web address] Tam Noel RADIOLOGY - XR CHEST 1 V 07/15 0655 Report Impression - Status: SIGNED Entered: 07/15/2022 0727 IMPRESSION: Left apical and basilar chest tubes. No pneumoth orax. Small bilateral pleural effusions. Bibasilar airspace opacities, mildly worsened. Impression By: [email or web address] Yogesh Sanders Results: labs reviewed, vital signs stable, ryth m personally rev'd, x-ray personally reviewed, current med profile rev'd Treatment Prophylaxis Treatment Prophylaxis Drain(s)/tube(s): Drain(s)/tube(s): chest Quality: Trauma Gen Surg Advanced Care Plan 65 or Older Discussed with: patient Discussion included: living will (none), power of employee benefits attorney (none), code status ( full code) VTE Prophylaxis - General VTE prophylaxis initiated: yes Diagnosis, Assessment Plan Hospital course to date: This is a 81-year-old gentleman who presented to an outside hospital with complaints of chest pains while walking at his home on Thursday. He denies any previous history of coronary artery disease or o ther LA. [facility]. 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 Card: Remains in sinus rhythm. [...] in ICU today Disucssed with Dr Schwarz- D C femoral line and Central line today. [...] 0 07/16/22 at 0757 at 1945 RPT #:[id number] END OF REPORT 2022-07-15 08:18:00-00:[address] [facility] Rehab Progress Note REPORT#:[id number] REPORT STATUS: Signed DATE:07/15/22 TIME: 817 PATIENT: SHERRI ARCE UNIT #: [id number] ROOM/BED: [place] [address] : 42 AGE: 81 SEX: M ATTEND: Sam Mcarthur MD ADM AUTHOR: Florencia Washburn NP * ALL edits or amendments must be made on the [employer]/computer document * Subjective Chief complaint: Rehab follow-up OOB in chair Denies pain or sob Fatigues easily Pleasant Feels ok Denies NAIK/N/V/D/CP 14 systems reviewed and neg. except that above. Objective General VS: Vital Signs: Date Time Temp Pulse Resp B/P B/P Pulse O2 O2 F low FiO2 Mean Ox Delivery Rate 07/15 799 98.1 07/15 0713 88 29 93 07/15 0700 90 29 110/57 77 91 / 0630 86 28 92 / 0600 84 29 100/55 72 90 / 0530 84 28 92 / 0500 88 30 94/52 68 91 / 0430 84 27 91 / 0400 87 27 116/57 81 92 / 0330 88 21 95 /07 0300 83 26 104/56 76 90 02/07 [...] 02/06 2100 80 24 95 02/06 2000 98.3 02/06 1999 84 27 123/60 83 [...] BICARBONATE) 650 MG B ID PO Ipratropium [place] (ATROVENT) 500 MCG RTQ2H PRN PRN INH [...] TABLET) 17.2 MG BED TIME PO Ipratropium [place] (ATROVENT) 500 MCG RTQ4H INH Acetaminophen (TYLENOL) [...] Lidocaine HCl (LIDOCAINE HCL/PF) 0.5 ML ASDIR [place] N I-DERMAL (CKD) Mannitol (Mannitol 20%) 12.5 [...] normal, meagan l muscle mass, normal tone Neuro/SCREW SUPERVISOR: alert, oriented X 3, CNII-XII intact Results Findings/Data: Laboratory Tests: 07/15 07/15 07/14 07/14 0320 0320 2014 104 Chemistry Sodium (134 - 147 mEq/L) 138 [...] (Auto) (14.0 - 32.0 %) 5.4 L Smyth % (Auto) (4.8 - 9.0 %) 10.3 H Eos % (Auto) (0.3 - 3.7 %) 6.3 H Baso % (Auto) (0.0 - 2.0 %) 0.8 Neut # (Auto) (2.0 - 7.6 x10 3/uL) 10.83 H Lymph # (Auto) (1.0 - 3.8 x10 3/uL) 0.78 L Smyth # (Auto) (0.1 - 0.8 x10 3/uL) [...] Treatment plan disc ussed with patient. at 0846 RPT #:[id number] END OF REPORT 2022-07-15 07:30:00-00:00 [id number] [address] PATIENT NAME: SHERRI ARCE ADMIT DATE: 07/02/22 ACCOUNT NO: [id number] ROOM NO: [id number] AGE: 81 REPORT TYPE: CONSULTATION REPORT SEX: M ADMITTING PHYSICIAN:Jesus Larson MD ATTENDING PHYSICIAN:Srinath Kaur MD CONSULTATION DATE:07/15/2022 CHIEF COMPLAINT: Urinary retention, history of B PH with lower urinary tract symptoms. HISTORY OF PRESENT ILLNESS: This is a 81-year-ol d gentleman that underwent a CABG at the end of June. Postoperatively, he developed urinary retention causing hydronephrosis. He has had a Waters makr ter placed and has been on Flomax, he states at baseline. He has incontinen ce, difficulty starting poor stream, incomplete emptying. This has been going on for many years. PAST MEDICAL HISTORY: BPH, LA, kidney injury, hy perlipidemia, and coronary artery disease. PAST SURGICAL HISTORY: CABG. Denies any prostate surgery. FAMILY HISTORY: Noncontributory. 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 HOME MEDICATIONS: Reviewed, can [...] Dictated: 07/15/2022 07:30:43 Date Transcribed: 07/15/2022 07:42:36 /[place] Receipt ID: [id number] Authenticated and Edited by Jonathan Harris MD O n 07/29/22 4:34:23 PM at 0435 PATIENT NAME: SHERRI ARCE 2022-07-14 17:26:00-00:00 [facility] Nephrology Progress Note REPORT#:[id number] REPORT STATUS: Signed DATE:07/14/22 TIME: 1726 PATIENT: SHERRI ARCE UNIT #: [id number] ROOM/BED: [place] [address] : 42 AGE: 81 SEX: M ATTEND: Sam Mcarthur MD ADM AUTHOR: Evelina Plaza MD * ALL edits or amendments must be made on the [employer]/computer document * Subjective Chief complaint: has no [...] 1159 79 19 112/58 98 Nasal cannula 07/14 1151 80 24 111/64 98 Nasal 3 cannula 07/14 1137 80 27 110/62 93 Room air [...] 2007 95 Room air 07/13 1999 98.6 021999 78 27 117/56 80 95 24 hour [...] Citrate (SUBLIMAZE) 0 .STK-MED ONE IV (DC) Dextrose/Water (DEXTROSE 10% IN WATER) [address] AT STA IV (DC) Insulin Human Regular (HUMAN INSULIN REG) 10 UNI TS STAT STA IV (DC) Midodrine (PROAMATINE) 5 MG 0900,1300,1700 PO Sodium Bicarbonate (SODIUM BICARBONATE) 650 MG B ID PO Ipratropium [place] (ATROVENT) 500 MCG RTQ2H PRN PRN INH [...] TABLET) 17.2 MG BED TIME PO Ipratropium [place] (ATROVENT) 500 MCG RTQ4H INH Acetaminophen (TYLENOL) [...] Lidocaine HCl (LIDOCAINE HCL/PF) 0.5 ML ASDIR KY N I-DERMAL (CKD) Mannitol (Mannitol 20%) 12.5 GM ASDIR PRN IV Sodium Chloride (SODIUM CHLORIDE 0.9%) 2,000 ML ASDIR PRN IV Tamsulosin HCl (Flomax 0.4 mg) 0.4 MG BEDTIME PO Physical Exam General appearance: alert, awake Head/eyes: atraumatic, normocephalic ENT: moist mucous membranes, normal nose Neck: non-tender, no JVD Extremities: no edema, no swelling Neuro/SCREW SUPERVISOR: alert, oriented X 3, normal speech Skin: [...] (Auto) (14.0 - 32.0 %) 5.1 L Smyth % (Auto) (4.8 - 9.0 %) 10.1 H Eos % (Auto) (0.3 - 3.7 %) 7.1 H Baso % (Auto) (0.0 - 2.0 %) 0.5 Neut # (Auto) (2.0 - 7.6 x10 3/uL) 9.80 H Lymph # (Auto) (1.0 - 3.8 x10 3/uL) 0.67 L Smyth # (Auto) (0.1 - 0.8 x10 3/uL) [...] Sesay M.D. CAT SCAN - CT GUID [facility] (Biopsy/Asp) 07/14 1509 Report Impression - Status: SIGNED Entered: 07/14/2022 1519 IMPRESSION: CT-guided left chest tube placement. Impression By: [email or web address] Tam Noel Treatment Prophylaxis Treatment Prophylaxis Drain(s)/tube(s): Drain(s)/tube(s): chest [...] Plaza MD on 11/28 at 1730 RPT #:[id number] END OF REPORT 2022-07-14 16:24:00-00:[address] [facility] Hospitalist Progress Note REPORT#:[id number] REPORT STATUS: Signed DATE:07/14/22 TIME: 1624 PATIENT: SHERRI ARCE UNIT #: [id number] ROOM/BED: [place] [address] : 42 AGE: 81 SEX: M ATTEND: Sam Mcarthur MD ADM AUTHOR: Sarbjit Mcarthur MD * ALL edits or amendments must be made on the [employer]/computer document * Subjective Chief complaint: Status post CABG x5 on 07/09, Doing well today. Am bulated around the unit. HPI: 81 y/o man with PMHx of HTN, Dyslipidemia that presented to [facility] last Thursday06/28/22 with chest pain and found to have a NSTEMI and also acute renal failure. Underwent cardiac c ath yesterday and found to have severe CAD including left main disease. Transfer here f or CABG evaluation. He also underwent HD Thursday and Thursday of this week. HD catheter was place at [facility]. Currently not having any chest pain. Had chest pain with SOB when he presentted to the previous hospital. Objective General VS/I O: Vital Signs: Date Time Temp Pulse Resp B/P B/P Pulse O2 O2 F low FiO2 Mean Ox Delivery Rate 07/14 1612 79 24 131/64 91 97 07/14 1511 97 Room air 21 07/14 1505 82 28 137/65 94 97 02/06 [...] no cyanosis, no edema Musculoskeletal: normal inspection Neuro/SCREW SUPERVISOR: alert, oriented X 3, normal speech, n [...] (Auto) (14.0 - 32.0 %) 5.1 L Smyth % (Auto) (4.8 - 9.0 %) 10.1 H Eos % (Auto) (0.3 - 3.7 %) 7.1 H Baso % (Auto) (0.0 - 2.0 %) 0.5 Neut # (Auto) (2.0 - 7.6 x10 3/uL) 9.80 H Lymph # (Auto) (1.0 - 3.8 x10 3/uL) 0.67 L Smyth # (Auto) (0.1 - 0.8 x10 3/uL) [...] Sesay M.D. CAT SCAN - CT GUID [facility] (Biopsy/Asp) 07/14 1509 Report Impression - Status: SIGNED Entered: 07/14/2022 1519 IMPRESSION: CT-guided left chest tube placement. Impression By: [email or web address] - Hansa Kyriakides, M .D. Treatment Prophylaxis Treatment Prophylaxis Drain(s)/tube(s): Drain(s)/tube(s): chest [...] Discussion included: living will (none), power of employee benefits attorney (none), code status ( full code) at 1625 RPT #:[id number] END OF REPORT 2022-07-14 15:59:00-00:[address] [facility] Cardiology Progress Note REPORT#:[id number] REPORT STATUS: Signed DATE:07/14/22 TIME: 1559 PATIENT: SHERRI ARCE UNIT #: [id number] ROOM/BED: [place] [address] : 42 AGE: 81 SEX: M ATTEND: Srinath Kaur MD ADM AUTHOR: Sonya Stacy DAY GUARD * ALL edits or amendments must be made on the el [employer]/computer document * Subjective Comments: Doing better. Objective General VS/I O: 24 hour I O ending at 0700: 0206 0700 02/05 1900 Intake Total 500 1200 Output Total 1515 1135 Balance -1015 65 Intake, Oral 500 960 Intake, Oral 240 Supplement Output, Chest 265 260 Tube Drainage Output, Urine 1250 875 Vital Signs: Date Time Temp Pulse Resp B/P B/P Pulse O2 O2 F low FiO2 Mean Ox Delivery Rate 02/06 1511 97 Room air 21 02/06 1202 80 15 109/60 98 Nasal [...] 02/05 2100 78 26 118/57 81 94 02/2007 95 Room air 02/1999 37.0 02/05 1999 [...] BICARBONATE) 650 MG B ID PO Ipratropium [place] (ATROVENT) 500 MCG RTQ2H PRN PRN INH [...] TABLET) 17.2 MG BED TIME PO Ipratropium [place] (ATROVENT) 500 MCG RTQ4H INH Acetaminophen (TYLENOL) [...] Lidocaine HCl (LIDOCAINE HCL/PF) 0.5 ML ASDIR P RN I-DERMAL (CKD) Mannitol (Mannitol 20%) 12.5 GM [...] temper ature, no edema Musculoskeletal: normal inspection Neuro/SCREW SUPERVISOR: alert, oriented X 3, normal speech Skin: [...] (Auto) (14.0 - 32.0 %) 5.1 L Smyth % (Auto) (4.8 - 9.0 %) 10.1 H Eos % (Auto) (0.3 - 3.7 %) 7.1 H Baso % (Auto) (0.0 - 2.0 %) 0.5 Neut # (Auto) (2.0 - 7.6 x10 3/uL) 9.80 H Lymph # (Auto) (1.0 - 3.8 x10 3/uL) 0.67 L Smyth # (Auto) (0.1 - 0.8 x10 3/uL) [...] bibasilar airspace disease. Impression By: [email or web address] - Shledon Kenney M.D. RADIOLOGY - XR CHEST 1 V 07/14 1411 Report Impression - Status: SIGNED Entered: 07/14/2022 1509 IMPRESSION: Interval placement of left chest tube near the a pex with decreased size of left pneumothorax now small. Otherwise, stable exam. Impression By: [email or web address] - Ranjan Sesay M.D. CAT SCAN - CT GUID [facility] (Biopsy/Asp) 07/14 1509 Report Impression - Status: SIGNED Entered: 07/14/2022 1519 IMPRESSION: CT-guided left chest tube placement. Impression By: [email or web address] - Tam Maldonado Telemetry Interpretation: sinus rhythm Echo results: [...] M w/ PMHx: HTN, HLD presented to [facility] on 06/28/22 for chest pa in and [...] and diffuse 50-60% dRCA. He transferred to [facility] for CABG. - CAD/NSTEMI s/p CABG [...] Liset Ennis MD on at 1057 RPT #:[id number] END OF REPORT 2022-07-14 14:30:00-00:00 [facility] ([facility]) Critical Care Progress Note REPORT#:[id number] REPORT STATUS: Signed DATE:07/14/22 TIME: 1430 PATIENT: SHERRI ARCE UNIT #: [id number] ROOM/BED: [place] [address] : 42 AGE: 81 SEX: M ATTEND: Sam Mcarthur MD ADM AUTHOR: Jana Mittal MD * ALL edits or amendments must be made on the [employer]/computer document * Subjective Chief complaint: CABG HPI: This is 81 years old male with medical history s ignificant for HTN and dyslipidemia who presented to [facility] Thursday06/28/22 with chest pain and found [...] I O ending at 0700: 07/14 0700 /05 1900 Intake Total 500 1200 Output Total 1515 1135 Balance -1015 65 Intake, Oral 500 960 Intake, Oral 240 Supplement Output, Chest 265 260 Tube Drainage Output, Urine 1250 875 PATIENT WEIGHT: Weight (lb): 200 Weight (oz): 13.46 Weight (kg): 91.100 Medications: Active Meds + DC'd Last 24 Hrs Fentanyl Citrate (SUBLIMAZE) 0 .STK-MED ONE .ROU TE (DC) Dextrose/Water (DEXTROSE 10% IN WATER) [address] AT STA IV (DC) Insulin Human Regular (HUMAN INSULIN REG) 10 UNI TS STAT STA IV (DC) Midodrine (PROAMATINE) 5 MG 0900,1300,1700 PO Sodium Bicarbonate (SODIUM BICARBONATE) 650 MG B ID PO Ipratropium [place] (ATROVENT) 500 MCG RTQ2H PRN PRN INH [...] TABLET) 17.2 MG BED TIME PO Ipratropium [place] (ATROVENT) 500 MCG RTQ4H INH Acetaminophen (TYLENOL) [...] Lidocaine HCl (LIDOCAINE HCL/PF) 0.5 ML ASDIR [place] N I-DERMAL (CKD) Mannitol (Mannitol 20%) 12.5 [...] (Auto) (14.0 - 32.0 %) 5.1 L Smyth % (Auto) (4.8 - 9.0 %) 10.1 H Eos % (Auto) (0.3 - 3.7 %) 7.1 H Baso % (Auto) (0.0 - 2.0 %) 0.5 Neut # (Auto) (2.0 - 7.6 x10 3/uL) 9.80 H Lymph # (Auto) (1.0 - 3.8 x10 3/uL) 0.67 L Smyth # (Auto) (0.1 - 0.8 x10 3/uL) [...] Tests 07/14/22 1043: [Embedded Image Not Available] 07/14/22 0337: [Embedded Image Not Available] Radiology data Recent Impressions: RADIOLOGY - XR CHEST 1 V 07/14 626 Report Impression - Status: SIGNED Entered: 07/14/2022 0915 IMPRESSION: 1. Moderate left apical pneumothorax, similar to prior radiograph. Left chest tube in place. 2. Unchanged small bilateral pleural effusions w ith bibasilar airspace disease. Impression By: Tere - Sheldon Kenney M.D. Free Text Obj [...] Musculoskeletal: normal inspection, no muscle sp asm Neuro/SCREW SUPERVISOR: alert and oriented x3, CNII-XII gross ly [...] MD on 0 07/14/22 at 1455 RPT #:[id number] END OF REPORT 2022-07-14 09:09:00-00:[address] [facility] Cardiothoracic Surgery Prog REPORT#:[id number] REPORT STATUS: Signed DATE:07/14/22 TIME: 908 PATIENT: SHERRI ARCE UNIT #: [id number] ROOM/BED: [place] [address] : 42 AGE: 81 SEX: M ATTEND: Srinath Kaur MD ADM AUTHOR: Gianna Hoover * ALL edits or amendments must be made on the [employer]/computer document * General Post-op: day 6 Status [...] Result Date Time Pulse Ox 96 07/14 08 Pulse 81 07/14 0807 Resp 24 07/14 0807 B/P 101/53 07/14 0800 B/P Mean 72 07/14 0800 O2 Delivery Nasal cannula 07/14 032 O2 Flow Rate 2 07/14 0324 Temp 98.6 07/13 1999 FiO2 50 07/08 1919 24 hour I O ending at 0700: 07/14 0700 07/13 1900 Intake Total 500 1200 Output Total [...] Genitourinary: waters, oN hd Extremities: moves all Neuro/SCREW SUPERVISOR: alert, oriented X 3, normal speech, n [...] BICARBONATE) 650 MG B ID PO Ipratropium [place] (ATROVENT) 500 MCG RTQ2H PRN PRN INH [...] TABLET) 17.2 MG BED TIME PO Ipratropium [place] (ATROVENT) 500 MCG RTQ4H INH Acetaminophen (TYLENOL) [...] Lidocaine HCl (LIDOCAINE HCL/PF) 0.5 ML ASDIR [place] N I-DERMAL (CKD) Mannitol (Mannitol 20%) 12.5 [...] (Auto) (14.0 - 32.0 %) 5.1 L Smyth % (Auto) (4.8 - 9.0 %) 10.1 H Eos % (Auto) (0.3 - 3.7 %) 7.1 H Baso % (Auto) (0.0 - 2.0 %) 0.5 Neut # (Auto) (2.0 - 7.6 x10 3/uL) 9.80 H Lymph # (Auto) (1.0 - 3.8 x10 3/uL) 0.67 L Smyth # (Auto) (0.1 - 0.8 x10 3/uL) [...] Discussion included: living will (none), power of employee benefits attorney (none), code status ( full code) VTE Prophylaxis - General VTE prophylaxis initiated: yes Diagnosis, Assessment Plan Hospital course to date: This is a 81-year-old gentleman who presented to an outside hospital with complaints of chest pains while walking at his home on Thursday. He denies any previous history of coronary artery disease or o ther LA. [facility]. He was found to have a urinary [...] p dialysis cath, Re-evaluate on Thursday if mcfp dialysis needed. Card: Remains in sinus rhythm. [...] in ICU today Disucssed with Dr Vidal Graves femoral line and Central line today. [...] 0 07/14/22 at 1304 at 1944 RPT #:[id number] END OF REPORT 2022-07-14 05:21:00-00:00 [facility] Rehab Progress Note REPORT#:[id number] REPORT STATUS: Signed DATE:07/14/22 TIME: 520 PATIENT: SHERRI ARCE UNIT #: [id number] ROOM/BED: [place] [address] : 42 AGE: 81 SEX: M ATTEND: Sam Mcarthur MD ADM AUTHOR: Magdaleno Washburn * ALL edits or amendments must be made on the [employer] document * Subjective Chief complaint: Rehab follow-up [...] 07/13 1500 70 25 103/58 77 96 07/13 1400 74 22 102/58 77 95 02/05 [...] BICARBONATE) 650 MG B ID PO Ipratropium [place] (ATROVENT) 500 MCG RTQ2H PRN PRN INH [...] TABLET) 17.2 MG BED TIME PO Ipratropium [place] (ATROVENT) 500 MCG RTQ4H INH Acetaminophen (TYLENOL) [...] Lidocaine HCl (LIDOCAINE HCL/PF) 0.5 ML ASDIR KY N I-DERMAL (CKD) Mannitol (Mannitol 20%) 12.5 GM ASDIR PRN IV Sodium Chloride (SODIUM CHLORIDE 0.9%) 2,000 ML ASDIR PRN IV Tamsulosin HCl (Flomax 0.4 mg) 0.4 MG BEDTIME PO Functional Progress Functional progress: Sit to Stand: Minimal Assistance Pivot Transfer: Minimal Assistance Activities Performed Cmt: PATIENT COMPLETED SIT <>STAND XFERS, DYNAMIC STANDING TASKS, COMMUNITY MOBILITY, AND RETURNS TO CHAIR. Assistive Device Used: Staff Support RW Balance: Fair Safety Awareness: Fair Effects of Treatment: Circulation improved Tolerance increased Review OT Plan of Care: Yes Document OT charges: FT/THERAP. ACTIVITY [id number] Physical Exam General appearance: alert, awake, no acute distr ess Psych: alert, oriented x 3 HEENT: anicteric, sclera clear Neck: supple, no JVD Cardiovascular: regular rate rhythm, S1/S2 Respiratory: aerating well, clear bilaterally Abdomen: bowel sounds present, non-distended, so ft Skin: intact, no rash Musculoskeletal - general: Musculoskeletal - general: joints normal, meagan l muscle mass, normal tone Neuro/SCREW SUPERVISOR: alert, oriented X 3, CNII-XII intact Results Findings/Data: Laboratory Tests: 07/14 02 0337 1029 Blood Gas O2 Saturation (90 [...] (Auto) (14.0 - 32.0 %) 5.1 L Smyth % (Auto) (4.8 - 9.0 %) 10.1 H Eos % (Auto) (0.3 - 3.7 %) 7.1 H Baso % (Auto) (0.0 - 2.0 %) 0.5 Neut # (Auto) (2.0 - 7.6 x10 3/uL) 9.80 H Lymph # (Auto) (1.0 - 3.8 x10 3/uL) 0.67 L Smyth # (Auto) (0.1 - 0.8 x10 3/uL) 1.32 H Eos # (Auto) (0.0 - 0.2 x10 3/uL) 0.92 H Baso # (Auto) (0.0 - 0.2 x10 3/uL) 0.07 Abs Immat Gran (auto) (0.00 - 0.03 x10 3/uL) 0 .24 H Add Manual Diff NO Immature Gran [...] Washburn on 0 07/15/22 at 1144 RPT #:[id number] END OF REPORT 2022-07-13 20:31:00-00:00 [facility] ([facility]) Nephrology Progress Note REPORT#:[id number] REPORT STATUS: Signed DATE:07/13/22 TIME: 2030 PATIENT: SHERRI ARCE UNIT #: [id number] ROOM/BED: [place] [address] : 42 AGE: 81 SEX: M ATTEND: Sam Mcarthur MD ADM AUTHOR: Evelina Plaza MD * ALL edits or amendments must be made on the [employer] document * Subjective Chief complaint: has no complaints. Objective General VS/I O: Vital Signs: Date Time Temp Pulse Resp B/P B/P Pulse O2 O2 F low FiO2 Mean Ox Delivery Rate 07/13 2007 [...] 100 Nasal 5 cannula 02/05 0000 97.6 07/12 2049 100 Nasal 5 cannula 24 hour I O ending at 0700: 02/05 0700 02/04 1900 Intake Total 350 240 Output Total [...] BICARBONATE) 650 MG B ID PO Ipratropium [place] (ATROVENT) 500 MCG RTQ2H PRN PRN INH [...] TABLET) 17.2 MG BED TIME PO Ipratropium [place] (ATROVENT) 500 MCG RTQ4H INH Acetaminophen (TYLENOL) [...] Lidocaine HCl (LIDOCAINE HCL/PF) 0.5 ML ASDIR KY N I-DERMAL (CKD) Mannitol (Mannitol 20%) 12.5 GM ASDIR PRN IV Sodium Chloride (SODIUM CHLORIDE 0.9%) 2,000 ML ASDIR PRN IV Tamsulosin HCl (Flomax 0.4 mg) 0.4 MG BEDTIME PO Physical Exam General appearance: alert, awake, oriented Head/eyes: atraumatic, normocephalic ENT: moist mucous membranes, normal nose Neck: non-tender, no JVD Extremities: no edema, no swelling Neuro/SCREW SUPERVISOR: alert, oriented X 3, normal speech Skin: [...] (Auto) (14.0 - 32.0 %) 7.0 L Smyth % (Auto) (4.8 - 9.0 %) 8.8 Eos % (Auto) (0.3 - 3.7 %) 6.4 H Baso % (Auto) (0.0 - 2.0 %) 0.5 Neut # (Auto) (2.0 - 7.6 x10 3/uL) 10.04 H Lymph # (Auto) (1.0 - 3.8 x10 3/uL) 0.93 L Smyth # (Auto) (0.1 - 0.8 x10 3/uL) [...] RADIOLOGY - XR CHEST 1 V 07/13 0552 Report Impression - Status: SIGNED Entered: 07/13/2022914 [...] 07/04. - off vasopressors. - s/p HD 2/. no HD today. 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 Consultants: cardiology, cardiovascular surgery, nephrology Electronically Signed by Evelina Plaza MD on 11/28 at 1054 RPT #:[id number] END OF REPORT 2022-07-13 16:23:00-00:00 [facility] ([facility]) Hospitalist Progress Note REPORT#:[id number] REPORT STATUS: Signed DATE:07/13/22 TIME: 1623 PATIENT: SHERRI ARCE UNIT #: [id number] ROOM/BED: [address] : 42 AGE: 81 SEX: M ATTEND: Sam Mcarthur MD ADM AUTHOR: Sarbjit Mcarthur MD * ALL edits or amendments must be made on the el [employer]/computer document * Subjective Chief complaint: Status post CABG x5 on 07/09, Doing well today. Am bulated around the unit. HPI: 81 y/o man with PMHx of HTN, Dyslipidemia that presented to [facility] last Thursday06/28/22 with chest pain and found to have a NSTEMI and also acute renal failure. Underwent cardiac c ath yesterday and found to have severe CAD including left main disease. Transfer here f or CABG evaluation. He also underwent HD Thursday and Thursday of this week. HD catheter was place at [facility]. Currently not having any chest pain. Had chest pain with SOB when he presentted to the previous hospital. Objective General VS/I O: Vital Signs: Date Time Temp Pulse Resp B/P B/P Pulse O2 O2 F low FiO2 Mean Ox Delivery Rate 02/ 0930 110/38 53 02/05 0930 77 26 [...] 26 109/56 78 99 02/05 0400 98.5 02/ 0345 100 Nasal 5 cannula 07/13 0000 97.6 07/12 2049 100 Nasal 5 [...] no cyanosis, no edema Musculoskeletal: normal inspection Neuro/SCREW SUPERVISOR: alert, oriented X 3, normal speech, n [...] (Auto) (14.0 - 32.0 %) 7.0 L Smyth % (Auto) (4.8 - 9.0 %) 8.8 Eos % (Auto) (0.3 - 3.7 %) 6.4 H Baso % (Auto) (0.0 - 2.0 %) 0.5 Neut # (Auto) (2.0 - 7.6 x10 3/uL) 10.04 H Lymph # (Auto) (1.0 - 3.8 x10 3/uL) 0.93 L Smyth # (Auto) (0.1 - 0.8 x10 3/uL) [...] Report Impression - Status: SIGNED Entered: 07/13/2022 7443 IMPRESSION: Left apical pneumothorax measuring approximately 4 cm, approximately 30%. Otherwise, no significant change. Impression By: [email or web address] - Delmer Pamla M.D. Treatment Prophylaxis Treatment Prophylaxis Drain(s)/tube(s): Drain(s)/tube(s): [...] Discussion included: living will (none), power of employee benefits attorney (none), code status ( full code) at 1625 RPT #:[id number] END OF REPORT 2022-07-13 14:48:00-00:00 [facility] ([facility]) Critical Care Progress Note REPORT#:[id number] REPORT STATUS: Signed DATE:07/13/22 TIME: 1448 PATIENT: SHERRI ARCE UNIT #: [id number] ROOM/BED: [place] [address] : 42 AGE: 81 SEX: M ATTEND: Sam Mcarthur MD ADM AUTHOR: Edwardo Flannery MD * ALL edits or amendments must be made on the [employer]/computer document * Subjective Chief complaint: CABG HPI: This is 81 years old male with medical history s ignificant for HTN and dyslipidemia who presented to [facility] Thursday06/28/22 with chest pain and found [...] 07/13 08 O2 Delivery Room air 07/13 0741 O2 Flow Rate 5 07/13 0345 FiO2 50 07/08 1918 24 hour I [...] BICARBONATE) 650 MG B ID PO Ipratropium [place] (ATROVENT) 500 MCG RTQ2H PRN PRN INH [...] TABLET) 17.2 MG BED TIME PO Ipratropium [place] (ATROVENT) 500 MCG RTQ4H INH Acetaminophen (TYLENOL) [...] Lidocaine HCl (LIDOCAINE HCL/PF) 0.5 ML ASDIR [place] N I-DERMAL (CKD) Mannitol (Mannitol 20%) 12.5 GM ASDIR PRN IV Sodium Chloride (SODIUM CHLORIDE 0.9%) 2,000 ML ASDIR PRN IV Tamsulosin HCl (Flomax 0.4 mg) 0.4 MG BEDTIME PO Results Radiology data Recent Impressions: ULTRASOUND - US [facility] 07/12 1624 Report Impression - Status: [...] Musculoskeletal: normal inspection, no muscle sp asm Neuro/SCREW SUPERVISOR: alert and oriented x3, CNII-XII gross ly [...] Flannery MD on 12/28 at 0247 RPT #[id number] END OF REPORT 2022-07-13 08:51:00-00:00 [facility] Cardiology Progress Note REPORT#:[id number] REPORT STATUS: Signed DATE:07/13/22 TIME: 08 PATIENT: SHERRI ARCE UNIT #: [id number] ROOM/BED: [place] [address] : 42 AGE: 81 SEX: M ATTEND: Sam Mcarthur MD ADM AUTHOR: Carolyn Penny NP * ALL edits or amendments must be made on the Trav[employer]/computer document * Subjective Chief complaint: Doing okay. [...] low FiO2 Mean Ox Delivery Rate 02/ 0930 110/38 53 02/05 0930 77 26 [...] 97.6 02/04 2050 100 Nasal 5 cannula 07/12 1999 98.1 02/04 1999 Nasal 5 cannula [...] 76 02/04 1330 78 30 115/59 82 02/ 1329 [...] BICARBONATE) 650 MG B ID PO Ipratropium [place] (ATROVENT) 500 MCG RTQ2H PRN PRN INH [...] TABLET) 17.2 MG BED TIME PO Ipratropium [place] (ATROVENT) 500 MCG RTQ4H INH Acetaminophen (TYLENOL) [...] Lidocaine HCl (LIDOCAINE HCL/PF) 0.5 ML ASDIR [place] N I-DERMAL (CKD) Mannitol (Mannitol 20%) 12.5 [...] extremity: LE assessment: edema (RLE trace), normal tempe rature, no edema Musculoskeletal: normal inspection Neuro/SCREW SUPERVISOR: alert, oriented X 3, normal speech Skin: [...] Air FiO2 (%) 32 Laboratory Tests 07/13 07/13 07/13 0300 0304 1029 Chemistry Sodium (134 - 147 [...] (Auto) (14.0 - 32.0 %) 7.0 L Smyth % (Auto) (4.8 - 9.0 %) 8.8 Eos % (Auto) (0.3 - 3.7 %) 6.4 H Baso % (Auto) (0.0 - 2.0 %) 0.5 Neut # (Auto) (2.0 - 7.6 x10 3/uL) 10.04 H Lymph # (Auto) (1.0 - 3.8 x10 3/uL) 0.93 L Smyth # (Auto) (0.1 - 0.8 x10 3/uL) [...] M w/ PMHx: HTN, HLD presented to [facility] on 06/28/22 for chest pa in and [...] and diffuse 50-60% dRCA. He transferred to [facility] for CABG. - CAD/NSTEMI s/p CABG [...] Mame Alexis MD on at 1315 RPT #:[id number] END OF REPORT 2022-07-13 06:50:00-00:00 [facility] ([facility]) Rehab Progress Note REPORT#:[id number] REPORT STATUS: Signed DATE:07/13/22 TIME: 649 PATIENT: SHERRI ARCE UNIT #: [id number] ROOM/BED: [place] [address] : 42 AGE: 81 SEX: M ATTEND: Sam Mcarthur MD ADM AUTHOR: Magdaleno Washburn * ALL edits or amendments must be made on the Travtar/computer document * Subjective Chief complaint: Rehab follow-up Seen in CCU Doing fair Fatigues easily Sat up in chair for a while Denies NAIK/N/V/D/CP 14 systems reviewed and neg. except that above. Objective General VS: Vital Signs: Date Time Temp Pulse Resp B/P B/P Pulse O2 O2 F low FiO2 Mean Ox Delivery Rate 07/13 0400 98.5 07/13 0345 100 Nasal 5 cannula 07/13 0000 [...] BICARBONATE) 650 MG B ID PO Ipratropium [place] (ATROVENT) 500 MCG RTQ2H PRN PRN INH [...] TABLET) 17.2 MG BED TIME PO Ipratropium [place] (ATROVENT) 500 MCG RTQ4H INH Acetaminophen (TYLENOL) [...] Lidocaine HCl (LIDOCAINE HCL/PF) 0.5 ML ASDIR [place] N I-DERMAL (CKD) Mannitol (Mannitol 20%) 12.5 [...] UP TO 120/60s. NEEDS WITHIN REACH AND SALES MARKETING AWARE OF PATIENT'S STATUS. Physical Exam General appearance: alert, awake Psych: alert, oriented x 3 HEENT: anicteric, sclera clear Neck: supple, no JVD Cardiovascular: regular rate rhythm, S1/S2 Respiratory: aerating well, clear bilaterally Abdomen: bowel sounds present, non-distended, so ft Skin: intact, no rash Musculoskeletal - general: Musculoskeletal - general: joints normal, meagan l muscle mass, normal tone Neuro/SCREW SUPERVISOR: alert, oriented X 3, CNII-XII intact Results [...] - 32.0 %) 7.0 L 3.6 L Smyth % (Auto) (4.8 - 9.0 %) 8.8 5.3 Eos % (Auto) (0.3 - 3.7 %) 6.4 H 4.4 H Baso % (Auto) (0.0 - 2.0 %) 0.5 0.4 Neut # (Auto) (2.0 - 7.6 x10 3/uL) 10.04 H 13.8 3 H Lymph # (Auto) (1.0 - 3.8 x10 3/uL) 0.93 L 0.59 L Smyth # (Auto) (0.1 - 0.8 x10 3/uL) [...] Washburn on 0 07/13/22 at 2155 RPT #:[id number] END OF REPORT 2022-07-13 06:19:00-00:00 [facility] ([facility]) Cardiothoracic Surgery Prog REPORT#:[id number] REPORT STATUS: Signed DATE:07/13/22 TIME: 618 PATIENT: SHERRI ARCE UNIT #: [id number] ROOM/BED: [place] [address] : 42 AGE: 81 SEX: M ATTEND: Srinath Kaur MD ADM AUTHOR: Gianna Hoover * ALL edits or amendments must be made on the el ectronic/computer document * General Post-op: day 5 Status [...] Result Date Time Pulse Ox 100 07/13 0345 O2 Delivery Nasal cannula 07/13 034 O2 [...] Genitourinary: waters, oN hd Extremities: moves all Neuro/SCREW SUPERVISOR: alert, oriented X 3, normal speech, n o motor deficits Psychiatry: normal affect, normal mood Current Medications Medications: Active Meds + DC'd Last 24 Hrs Albumin Human (ALBUMINAR 25%) 100 ML ONCE ONE IV (DC) Midodrine (PROAMATINE) 5 MG ONCE ONE PO (DC) Midodrine (PROAMATINE) 5 MG 0900,1300,1700 PO Sodium Bicarbonate (SODIUM BICARBONATE) 650 MG B ID PO Ipratropium [place] (ATROVENT) 500 MCG RTQ2H PRN PRN INH [...] ML Sodium Phosphate (SODIUM PHOSPHATE) 20 MMOL ASD IR PRN IV Sodium Chloride [...] TABLET) 17.2 MG BED TIME PO Ipratropium [place] (ATROVENT) 500 MCG RTQ4H INH Acetaminophen (TYLENOL) [...] Lidocaine HCl (LIDOCAINE HCL/PF) 0.5 ML ASDIR P RN I-DERMAL (CKD) Mannitol (Mannitol 20%) 12.5 GM ASDIR PRN IV Sodium Chloride (SODIUM CHLORIDE 0.9%) 2,000 ML ASDIR PRN IV Tamsulosin HCl (Flomax 0.4 mg) 0.4 MG BEDTIME PO Results Findings/Data: Laboratory Tests 07/13 0304 Blood Gas Puncture Site Art Line [...] - 32.0 %) 7.0 L 3.6 L Smyth % (Auto) (4.8 - 9.0 %) 8.8 5.3 Eos % (Auto) (0.3 - 3.7 %) 6.4 H 4.4 H Baso % (Auto) (0.0 - 2.0 %) 0.5 0.4 Neut # (Auto) (2.0 - 7.6 x10 3/uL) 10.04 H 13.8 3 H Lymph # (Auto) (1.0 - 3.8 x10 3/uL) 0.93 L 0.59 L Smyth # (Auto) (0.1 - 0.8 x10 3/uL) [...] Impression By: StevenABKanu - Delmer Palma M.D. Results: labs reviewed, vital signs stable, danilo tam personally rev'd, x-ray personally reviewed, current med profile rev'd Quality: Trauma Gen Surg Advanced Care Plan 65 or Older Discussed with: patient Discussion included: living will (none), power of employee benefits attorney (none), code status ( full code) VTE Prophylaxis - General VTE prophylaxis initiated: yes Diagnosis, Assessment Plan Hospital course to date: This is a 81-year-old gentleman who presented to an outside hospital with complaints of chest pains while walking at his home on Thursday. He denies any previous history of coronary artery disease or o ther LA. [facility]. He was found to have a urinary [...] p dialysis cath, Re-evaluate on Thursday if mcfp dialysis needed. Card: Remains in sinus rhythm. [...] 0 07/13/22 at 1145 at 1944 RPT #:[id number] END OF REPORT 2022-07-12 20:51:00-00:00 [phone] [place] [address] PATIENT NAME: SHERRI ARCE ADMIT DATE: 07/02/22 ACCOUNT NO: [id number] [place] [facility] AGE: 81 REPORT TYPE: eECHOCARDIOGRAM REPORT SEX: M ADMITTING PHYSICIAN:Radha Ward MD ATTENDING PHYSICIAN:Sarbjit Mcarthur MD *[facility]* [address] [place] [address]. [place] [address] Transthoracic Echocardiogram Patient: Sherri Arce Study Date: 07/11/2022 BP: 128 / 44 Location: [facility] URN: [id number] 7447 : 1940 Age: 81 Height: 72 in / 183 cm Gender: M Weight: 202 .4 lb / 92 kg BMI/BSA: 27.5 kg/m 2 / 2.18 m 2 *Ordering Physician: * Edwardo Flannery *Interpreting Physician: * Mame Alexis MD *Biochemical Engineer: * Desire Tsang [facility] Indications: HYPOTENSION. Study data: Transthoracic echocardiogram. Proced ure: Transthoracic echocardiography was performed. Images were obta ined using a [employer] cardiac ultrasound machine. Image quality was adequate. [...] ---- ratio Pulmonic valve Value 07/03/2022 Ref [place] v, ED 2.52 m/sec 0.72 ---- [place] grad, 25 mm Hg ---- ED Conclusions [...] NAME: SHERRI ARCE 2022-07-12 13:32:00-00:[address] [facility] Hospitalist Progress Note REPORT#:[id number] REPORT STATUS: Signed DATE:07/12/22 TIME: 1332 PATIENT: SHERRI ARCE UNIT #: [id number] ROOM/BED: [place] [address] : 42 AGE: 81 SEX: M ATTEND: Sam Mcarthur MD ADM AUTHOR: Sarbjit Mcarthur MD * ALL edits or amendments must be made on the Trav[employer]/computer document * Subjective Chief complaint: Status post CABG x5 on 07/09, Had HD this am. HPI: 81 y/o man with PMHx of HTN, Dyslipidemia that presented to [facility] last Thursday06/28/22 with chest pain and found to have a NSTEMI and also acute renal failure. Underwent cardiac c ath yesterday and found to have severe CAD including left main disease. Transfer here f or CABG evaluation. He also underwent HD Thursday and Thursday of this week. HD catheter [facility] place at [facility]. Currently not having any chest pain. Had chest pain with SOB when he presentted to the previous hospital. Objective General VS/I O: Vital Signs: Date Time Temp Pulse Resp B/P B/P Pulse O2 O2 F low FiO2 Mean Ox Delivery Rate 07/12 1217 95 High flow 7 nasal cannula 07/12 1202 97.8 76 24 134/52 94 Nasal 7 cannula 07/12 1054 82 24 139/53 74 91 /04 1030 139/53 74 07/12 1030 81 27 105/59 77 93 02/04 1000 152/57 81 02/ 1000 85 63 113/64 84 99 07/12 0930 146/56 78 02/ 0930 84 25 125/64 88 95 02/04 [...] 2025 93 High flow 6 nasal cannula 02/1999 [...] no cyanosis, no edema Musculoskeletal: normal inspection Neuro/SCREW SUPERVISOR: alert, oriented X 3, normal speech, n [...] - 32.0 %) 3.6 L 4.8 L Smyth % (Auto) (4.8 - 9.0 %) 5.3 6.5 Eos % (Auto) (0.3 - 3.7 %) 4.4 H 4.1 H Baso % (Auto) (0.0 - 2.0 %) 0.4 0.5 Neut # (Auto) (2.0 - 7.6 x10 3/uL) 13.83 H 14.1 3 H Lymph # (Auto) (1.0 - 3.8 x10 3/uL) 0.59 L 0.81 L Smyth # (Auto) (0.1 - 0.8 x10 3/uL) [...] - 0.1 x10 3/uL) 0. 00 0.00 Radiology data: Recent Impressions: RADIOLOGY - XR CHEST 1 V 07/12 0707 Report Impression - Status: SIGNED Entered: 07/12/2022 5783 IMPRESSION: 1. Small bilateral pleural effusions. 2. Moderate to severe enlarged cardiac silhouett e. 3. Yrmk-yr-xojcuzwv pulmonary edema versus infil trates. Improvement. Impression [...] Discussion included: living will (none), power of employee benefits attorney (none), code status ( full code) at 1337 RPT #:[id number] END OF REPORT 2022-07-12 11:14:00-00:00 [facility] ([facility]) Nephrology Progress Note REPORT#:[id number] REPORT STATUS: Signed DATE:07/12/22 TIME: 1114 PATIENT: SHERRI ARCE UNIT #: [id number] ROOM/BED: [place] [address] : 42 AGE: 81 SEX: M ATTEND: Sam Mcarthur MD ADM AUTHOR: Evelina Plaza MD * ALL edits or amendments must be made on the [employer] document * Subjective Chief complaint: has no complaints. Objective General VS/I O: Vital Signs: Date Time Temp Pulse Resp B/P B/P Pulse O2 O2 F low FiO2 Mean Ox Delivery Rate 02/04 1054 82 24 139/53 74 91 [...] 2030 57 24 107/56 75 92 02/03 6 93 High flow 6 nasal cannula 02/03 [...] UNI TS STAT STA IV (DC) Ipratropium [place] (ATROVENT) 500 MCG RTQ2H PRN PRN INH [...] TABLET) 17.2 MG BED TIME PO Ipratropium [place] (ATROVENT) 500 MCG RTQ4H INH Acetaminophen (TYLENOL) [...] Lidocaine HCl (LIDOCAINE HCL/PF) 0.5 ML ASDIR [place] N I-DERMAL (CKD) Mannitol (Mannitol 20%) 12.5 GM ASDIR PRN IV Sodium Chloride (SODIUM CHLORIDE 0.9%) 2,000 ML ASDIR PRN IV Tamsulosin HCl (Flomax 0.4 mg) 0.4 MG BEDTIME PO Physical Exam General appearance: alert, awake, oriented Head/eyes: atraumatic, normocephalic ENT: moist mucous membranes, normal nose Neck: non-tender, no JVD Extremities: no edema, no swelling Neuro/SCREW SUPERVISOR: alert, oriented X 3, normal speech Skin: [...] Laboratory Tests 07/12 07/12 07/11 07/11 0412 0409 2219 2028 Chemistry Sodium (134 - 147 [...] (Auto) (14.0 - 32.0 %) 4.8 L Smyth % (Auto) (4.8 - 9.0 %) 6.5 Eos % (Auto) (0.3 - 3.7 %) 4.1 H Baso % (Auto) (0.0 - 2.0 %) 0.5 Neut # (Auto) (2.0 - 7.6 x10 3/uL) 14.13 H Lymph # (Auto) (1.0 - 3.8 x10 3/uL) 0.81 L Smyth # (Auto) (0.1 - 0.8 x10 3/uL) [...] Report Impression - Status: SIGNED Entered: 07/12/2022 0637 IMPRESSION: 1. Small bilateral pleural effusions. 2. Moderate to severe enlarged cardiac silhouett e. 3. Vbqv-po-ltzwxerb pulmonary edema versus infil trates. Improvement. Impression [...] 82 + albumin + dopamine. - HD 07/12. - BMP daily, if stable, then propably remove HD cath by Thursday. Discussed with patient and cardiothoracic surger y team Consultants: cardiology, cardiovascular surgery, nephrology Electronically Signed by Evelina Plaza MD on 09/28 at 1116 RPT #:[id number] END OF REPORT 2022-07-12 10:15:00-00:00 [facility] ([facility]) Cardiothoracic Surgery Prog REPORT#:[id number] REPORT STATUS: Signed DATE:07/12/22 TIME: 1015 PATIENT: SHERRI ARCE UNIT #: [id number] ROOM/BED: [place] [address] : 42 AGE: 81 SEX: M ATTEND: Sam Mcarthur MD ADM AUTHOR: Gianna Hoover * ALL edits or amendments must be made on the Trav[employer]/computer document * General Post-op: day 4 Status [...] Temp 97.5 07/12 856 Pulse 71 07/12 856 Resp 27 07/12 0857 B/P Mean 74 07/12 0627 FiO2 50 [...] Genitourinary: waters, oN hd Extremities: moves all 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 He denies any previous history of coronary artery disease or o ther LA. [facility] He was found to have a urinary [...] p dialysis cath, Re-evaluate on Thursday if mcfp dialysis needed. Card: Remains in sinus rhythm. Respir: on 7 L NC O2 95% Dispo: Rehab consulted Patient seen and exmained by Dr Rodríguez. Plan discussed with Team Consultants: cardiology, cardiovascular surgery, nephrology Electronically Signed by Gianna Hoover PA on 0 07/12/22 at 1023 at 1950 RPT #:[id number] END OF REPORT 2022-07-12 09:56:00-00:00 [facility] Cardiology Progress Note REPORT#:[id number] REPORT STATUS: Signed DATE:07/12/22 TIME: 09 PATIENT: SHERRI ARCE UNIT #: [id number] ROOM/BED: [place] [address] : 42 AGE: 81 SEX: M ATTEND: Sam Mcarthur MD ADM AUTHOR: Carolyn Penny REFORMATORY ATTENDANT * ALL edits or amendments must be made on the Trav[employer]/computer document * Subjective Chief complaint: Doing okay. [...] hour I O ending at 0700: 07/11 1900 02/04 0700 Intake Total 1350.00 574.00 Output Total [...] 6 93 High flow 6 nasal cannula 02/03 [...] UNI TS STAT STA IV (DC) Ipratropium [place] (ATROVENT) 500 MCG RTQ2H PRN PRN INH [...] TABLET) 17.2 MG BED TIME PO Ipratropium [place] (ATROVENT) 500 MCG RTQ4H INH Acetaminophen (TYLENOL) [...] Lidocaine HCl (LIDOCAINE HCL/PF) 0.5 ML ASDIR [place] N I-DERMAL (CKD) Mannitol (Mannitol 20%) 12.5 [...] temper ature, no edema Musculoskeletal: normal inspection Neuro/SCREW SUPERVISOR: alert, oriented X 3, normal speech Skin: [...] 1.7 mmol/l) 0.6 L O2 Delivery Device [facility] Laboratory Tests 07/110 0407 0412 Chemistry Sodium (134 - 147 mEq/L) [...] - 32.0 %) 4.8 L 3.6 L Smyth % (Auto) (4.8 - 9.0 %) 6.5 5.3 Eos % (Auto) (0.3 - 3.7 %) 4.1 H 4.4 H Baso % (Auto) (0.0 - 2.0 %) 0.5 0.4 Neut # (Auto) (2.0 - 7.6 x10 3/uL) 14.13 H 13.8 3 H Lymph # (Auto) (1.0 - 3.8 x10 3/uL) 0.81 L 0.5 9 L Smyth # (Auto) (0.1 - 0.8 x10 3/uL) [...] Report Impression - Status: SIGNED Entered: 07/12/2022 8337 IMPRESSION: 1. Small bilateral pleural effusions. 2. Moderate to severe enlarged cardiac silhouett e. 3. Dels-kn-wqbgnbbx pulmonary edema versus infil trates. Improvement. Impression [...] M w/ PMHx: HTN, HLD presented to [facility] on 06/28/22 for chest pa in and [...] and diffuse 50-60% dRCA. He transferred to [facility] for CABG. - CAD/NSTEMI s/p CABG [...] Mame Alexis MD on at 1700 RPT #:[id number] END OF REPORT 2022-07-12 07:09:00-00:00 [facility] ([facility]) Critical Care Progress Note REPORT#:[id number] REPORT STATUS: Signed DATE:07/12/22 TIME: 708 PATIENT: SHERRI ARCE UNIT #: [id number] ROOM/BED: 2202-1 : 42 AGE: 81 SEX: M ATTEND: Sam Mcarthur MD ADM AUTHOR: Edwardo Flannery MD * ALL edits or amendments must be made on the el [employer]/computer document * Subjective Chief complaint: CABG HPI: This is 81 years old male with medical history s ignificant for HTN and dyslipidemia who presented to [facility] Thursday06/28/22 with chest pain and found [...] Flow Rate 6 07/12 341 Temp 98.4 07/11 1999 FiO2 50 07/08 1918 24 hour [...] UNI TS STAT STA IV (DC) Ipratropium [place] (ATROVENT) 500 MCG RTQ2H PRN PRN INH [...] TABLET) 17.2 MG BED TIME PO Ipratropium [place] (ATROVENT) 500 MCG RTQ4H INH Acetaminophen (TYLENOL) [...] Lidocaine HCl (LIDOCAINE HCL/PF) 0.5 ML ASDIR [place] N I-DERMAL (CKD) Mannitol (Mannitol 20%) 12.5 GM ASDIR PRN IV Sodium Chloride (SODIUM CHLORIDE 0.9%) 2,000 ML ASDIR PRN IV Tamsulosin HCl (Flomax 0.4 mg) 0.4 MG BEDTIME PO Results Findings/data: Laboratory Tests 07/12 07/11 07/11 0412 1551 0931 Blood Gas Puncture Site Art Line Art Line Art Line O2 Saturation (90 - 100 %) 89.5 L 95.2 93.9 ABG pH (7.35 - 7.45) 7.371 7.347 L 7.381 ABG pCO2 (35.0 - 45 mmHg) 34.5 L 37.9 36.5 ABG pO2 (80 - 100.0 mmHg) 58.5 L 80.5 71.5 L ABG HCO3 (22.0 - 26.0 MMOL/L) 20.0 L 20.8 L 21. 7 L ABG Total CO2 21.1 22.0 22.8 ABG Base Excess (-4.0 - 4.0 MMOL/L) -5.3 L -4.8 L -3.4 ABG Hematocrit (37.5 - [...] 07/12 07/11 07/11 07/11 0412 0407 2220 9 1551 Chemistry Sodium (134 - 147 mEq/L) [...] mg/dL) 2.69 H 07/11 07/11 07/11 1545 0917 0761 Chemistry Sodium (134 - 147 mEq/L) 132 [...] (Auto) (14.0 - 32.0 %) 4.8 L Smyth % (Auto) (4.8 - 9.0 %) 6.5 Eos % (Auto) (0.3 - 3.7 %) 4.1 H Baso % (Auto) (0.0 - 2.0 %) 0.5 Neut # (Auto) (2.0 - 7.6 x10 3/uL) 14.13 H Lymph # (Auto) (1.0 - 3.8 x10 3/uL) 0.81 L Smyth # (Auto) (0.1 - 0.8 x10 3/uL) [...] Impression By: Toro - Delmer Palma M.D. Free Text Obj [...] Musculoskeletal: normal inspection, no muscle sp asm Neuro/SCREW SUPERVISOR: alert and oriented x3, CNII-XII gross ly [...] Flannery MD on 12/28 at 0247 RPT #:[id number] END OF REPORT 2022-07-12 07:07:00-00:00 [facility] ([facility]) Rehab Progress Note REPORT#:[id number] REPORT STATUS: Signed DATE:07/12/22 TIME: 706 PATIENT: SHERRI ARCE UNIT #: [id number] ROOM/BED: [place] [address] : 42 AGE: 81 SEX: M ATTEND: Sam Mcarthur MD ADM AUTHOR: Magdaleno Washburn * ALL edits or amendments must be made on the el [employer]/computer document * Subjective Chief complaint: Rehab follow-up [...] Hrs Sodium Bicarbonate (SODIUM BICARBONATE) 650 MG BID PO Dextrose/Water (DEXTROSE 50% W SYRINGE) 50 ML ON CE ONE IV (DC) Insulin Human Regular (HUMAN INSULIN REG) 10 UNI TS STAT STA IV (DC) Ipratropium [place] (ATROVENT) 500 MCG RTQ2H PRN PRN INH [...] TABLET) 17.2 MG BED TIME PO Ipratropium [place] (ATROVENT) 500 MCG RTQ4H INH Acetaminophen (TYLENOL) [...] Lidocaine HCl (LIDOCAINE HCL/PF) 0.5 ML ASDIR [place] N I-DERMAL (CKD) Mannitol (Mannitol 20%) 12.5 GM ASDIR PRN IV Sodium Chloride (SODIUM CHLORIDE 0.9%) 2,000 ML ASDIR PRN IV Tamsulosin HCl (Flomax 0.4 mg) 0.4 MG BEDTIME PO Functional Progress Functional progress: Weightbearing: STERNAL Ambulation Distance: 10FT X2 Progression: Forward Assistance Level: Minimal Assistance Gait Deviations: SLOW Base of Support - Narrow [facility] Mobility: No Document Pain/Education: No Advanced Progression: No Effects of Treatment: Cardio tolerance improved Function Improved Post TX Precautions: In Chair Call Light in Reach Nursing Notified O2 on Review Plan of Care: Yes PT charges: Gait Training [id number] Gait Cmt: Pt AMBUALTED 10FT X2, RW, WC FOLLOW, MIN A. MOD A SUPINE>SIT. 2 PERSON ASSIST FOR LINE MANAGEMEN T. VITALS MONITORED DURING TX, Pts BP LOWEST [...] normal, meagan l muscle mass, normal tone Neuro/SCREW SUPERVISOR: alert, oriented X 3, CNII-XII intact Results Findings/Data: Laboratory Tests: 07/12 07/12 07/11 07/11 0412 1858 2221 2028 Blood Gas Puncture Site Art Line [...] (Auto) (14.0 - 32.0 %) 4.8 L Smyth % (Auto) (4.8 - 9.0 %) 6.5 Eos % (Auto) (0.3 - 3.7 %) 4.1 H Baso % (Auto) (0.0 - 2.0 %) 0.5 Neut # (Auto) (2.0 - 7.6 x10 3/uL) 14.13 H Lymph # (Auto) (1.0 - 3.8 x10 3/uL) 0.81 L Smyth # (Auto) (0.1 - 0.8 x10 3/uL) [...] (0.0 - 0.1 x10 3/uL) 0.0 0 / 0207/11 1551 1545 0914 8925 Blood Gas Puncture Site Art Line Art [...] Washburn on 0 07/12/22 at 1947 RPT #:[id number] END OF REPORT 2022-07-11 16:03:00-00:00 [facility] ([facility]) Nephrology Progress Note REPORT#:[id number] REPORT STATUS: Signed DATE:07/11/22 TIME: 1603 PATIENT: SHERRI ARCE UNIT #: [id number] ROOM/BED: [place] [address] : 42 AGE: 81 SEX: M ATTEND: Radha Ward MD ADM AUTHOR: Evelina Plaza MD * ALL edits or amendments must be made on the [employer]/computer document * Subjective Chief complaint: has no complaints. Objective General VS/I O: Vital Signs: Date Time Temp Pulse Resp B/P B/P Pulse O2 O2 F low FiO2 Mean Ox Delivery Rate 07/11 0800 Nasal 5 cannula 02/03 0746 94 [...] 93 02/02 1941 95 Nasal 3 cannula 02/ 1930 108/36 51 02/02 1930 100.0 77 [...] I O ending at 0700: 03 0700 /02 1900 Intake Total 1017.00 1283.00 [...] Meds + DC'd Last 24 Hrs Ipratropium [place] (ATROVENT) 500 MCG RTQ2H PRN PRN INH [...] TABLET) 17.2 MG BED TIME PO Ipratropium [place] (ATROVENT) 500 MCG RTQ4H INH Acetaminophen (TYLENOL) 650 MG Q4H PRN PRN PO Acetaminophen (TYLENOL) 650 MG Q4H PRN PRN RECTA L Calcium Chloride (CALCIUM CHLORIDE) 1 GM ASDIR P RN IV Dextrose/Water (DEXTROSE 10% IN WATER) 125 ML DIR PRN IV (CKD) Dextrose/Water (DEXTROSE 10% IN WATER) 250 ML A SDIR PRN IV (CKD) Epinephrine (ADRENALIN CHLORIDE) 4 [...] Lidocaine HCl (LIDOCAINE HCL/PF) 0.5 ML ASDIR [place] N I-DERMAL (CKD) Mannitol (Mannitol 20%) 12.5 GM ASDIR PRN IV Sodium Chloride (SODIUM CHLORIDE 0.9%) 2,000 ML ASDIR PRN IV Tamsulosin HCl (Flomax 0.4 mg) 0.4 MG BEDTIME PO Physical Exam General appearance: alert, awake, oriented Head/eyes: atraumatic, normocephalic ENT: moist mucous membranes, normal nose Neck: non-tender, no JVD Extremities: no edema, no swelling Neuro/SCREW SUPERVISOR: alert, oriented X 3, normal speech Skin: dry, intact Results Findings/Data: Laboratory Tests 07/11 07/11 07/11 07/11 1551 0948 0430 0226 Blood Gas Puncture Site Art Line Art Line [place] Art Line O2 Saturation (90 - [...] 98.8 O2 Delivery Device Cannula Cannula HFNC [facility] Laboratory Tests 07/11 07/11 07/11 [...] (Auto) (14.0 - 32.0 %) 4.2 L Smyth % (Auto) (4.8 - 9.0 %) 7.5 Eos % (Auto) (0.3 - 3.7 %) 0.8 Baso % (Auto) (0.0 - 2.0 %) 0.3 Neut # (Auto) (2.0 - 7.6 x10 3/uL) 19.22 H Lymph # (Auto) (1.0 - 3.8 x10 3/uL) 0.93 L Smyth # (Auto) (0.1 - 0.8 x10 3/uL) [...] RADIOLOGY - XR CHEST 1 V 07/11 3919 Report Impression - Status: SIGNED Entered: 07/11/2022 1251 IMPRESSION: 1. Moderate enlarged cardiac silhouette. 2. [...] Plaza MD on 08/28 at 1606 RPT #:[id number] END OF REPORT 2022-07-11 14:32:00-00:[address] [facility] Cardiology Progress Note REPORT#:[id number] REPORT STATUS: Signed DATE:07/11/22 TIME: 1432 PATIENT: SHERRI ARCE UNIT #: [id number] ROOM/BED: [place] [address] : 42 AGE: 81 SEX: M ATTEND: Radha Ward ADM AUTHOR: Sonya Stacy CNP * ALL edits or amendments must be made on the [facility] document * Subjective Comments: Awake and alert [...] Delivery Rate 07/11 0800 Nasal 5 cannula / 0746 94 Nasal 5 cannula / 0556 37.4 87 30 128/44 62 95 [...] Meds + DC'd Last 24 Hrs Ipratropium [place] (ATROVENT) 500 MCG RTQ2H PRN PRN INH [...] TABLET) 17.2 MG BED TIME PO Ipratropium [place] (ATROVENT) 500 MCG RTQ4H INH Acetaminophen (TYLENOL) [...] Lidocaine HCl (LIDOCAINE HCL/PF) 0.5 ML ASDIR [place] N I-DERMAL (CKD) Mannitol (Mannitol 20%) 12.5 [...] temper ature, no edema Musculoskeletal: normal inspection Neuro/SCREW SUPERVISOR: alert, oriented X 3, normal speech Skin: dry Psychiatry: normal affect Results Findings/Data: Laboratory Tests 07/11 07/11 07/11 0992 0430 0226 Blood Gas Puncture Site Art Line [place] Art Line O2 Saturation (90 - [...] (F) 98.8 O2 Delivery Device Cannula HFNC HFSD Laboratory Tests 07/11 07/11 07/11 07/11 07/11 [...] - 32.0 %) 4.2 L 3.2 L Smyth % (Auto) (4.8 - 9.0 %) 7.5 5.4 Eos % (Auto) (0.3 - 3.7 %) 0.8 0.4 Baso % (Auto) (0.0 - 2.0 %) 0.3 0.2 Neut # (Auto) (2.0 - 7.6 x10 3/uL) 19.22 H 22.1 4 H Lymph # (Auto) (1.0 - 3.8 x10 3/uL) 0.93 L 0.7 9 L Smyth # (Auto) (0.1 - 0.8 x10 3/uL) [...] - 0.1 x10 3/uL) 0.0 0 0.00 Immature Plt Fraction (0.9 - 11.2 %) 6.5 Laboratory Tests 07/11 1445 Chemistry Magnesium (1.80 - 2.40 mg/dL) 2.89 H 2.63 H 2.3 9 Radiology data: Recent Impressions: RADIOLOGY - XR CHEST 1 V 07/11 9325 Report Impression - Status: SIGNED Entered: 07/11/2022 8798 IMPRESSION: 1. Moderate enlarged cardiac silhouette. 2. Small bilateral pleural effusions. 3. Moderate to severe pulmonary edema versus inf iltrates, pneumonia. Progression of opacities within right lower chest. 4. Degenerative and postsurgical changes are dem onstrated, as described above. Impression By: [email or web address] - Manuel Vega M.D. Results: labs reviewed, vital signs reviewed, [facility] personally rev'd Telemetry Interpretation: sinus rhythm Diagnosis, Assessment Plan Plan discussed with: patient, nurse Free Text DxA P Notes Free Text DxA P Notes: Mr. Arce is a pleasant 81 y/o M w/ PMHx: HTN, HLD presented to [facility] on 06/28/22 for chest pa in and [...] and diffuse 50-60% dRCA. He transferred to [facility] for CABG. - CAD/NSTEMI s/p CABG s/p [...] Signed by Liset Ennis MD on at 0066 RPT #:[id number] END OF REPORT 2022-07-11 11:16:00-00:00 [facility] ([facility]) Cardiothoracic Surgery Prog REPORT#:[id number] REPORT STATUS: Signed DATE:07/11/22 TIME: 1116 PATIENT: SHERRI ARCE UNIT #: [id number] [place]ED: [facility] [place] : [place] AGE: 81 SEX: M ATTEND: Sam Mcarthur MD ADM AUTHOR: Gianna Hoover * ALL edits or amendments must be made on the el [employer]/computer document * General Post-op: day 3 Status [...] Genitourinary: waters, oN hd Extremities: moves all Neuro/SCREW SUPERVISOR: alert, oriented X 3, normal speech, n o motor deficits Psychiatry: normal affect, normal mood Current Medications Medications: Active Meds + DC'd Last 24 Hrs Ipratropium [place] (ATROVENT) 500 MCG RTQ2H PRN PRN INH [...] TABLET) 17.2 MG BED TIME PO Ipratropium [place] (ATROVENT) 500 MCG RTQ4H INH Acetaminophen (TYLENOL) [...] Lidocaine HCl (LIDOCAINE HCL/PF) 0.5 ML ASDIR [place] N I-DERMAL (CKD) Mannitol (Mannitol 20%) 12.5 GM ASDIR PRN IV Sodium Chloride (SODIUM CHLORIDE 0.9%) 2,000 ML ASDIR PRN IV Tamsulosin HCl (Flomax 0.4 mg) 0.4 MG BEDTIME PO Results Findings/Data: Laboratory Tests 07/11 07/11 07/11 0948 0430 0226 Blood Gas Puncture Site Art Line [place] Art Line O2 Saturation (90 - 100 [...] Temperature (F) 98.8 O2 Delivery Device Cannula [facility] Laboratory Tests 07/11 07/11 07/11 07/11 07/11 0948 0789 6710 8104 6652 Chemistry Sodium (134 - 147 mEq/L) 136 [...] - 32.0 %) 4.2 L 3.2 L Smyth % (Auto) (4.8 - 9.0 %) 7.5 5.4 Eos % (Auto) (0.3 - 3.7 %) 0.8 0.4 Baso % (Auto) (0.0 - 2.0 %) 0.3 0.2 Neut # (Auto) (2.0 - 7.6 x10 3/uL) 19.22 H 22.1 4 H Lymph # (Auto) (1.0 - 3.8 x10 3/uL) 0.93 L 0.79 L Smyth # (Auto) (0.1 - 0.8 x10 3/uL) [...] - 0.1 x10 3/uL) 0.0 0 0.00 Immature Plt Fraction (0.9 - 11.2 %) 6.5 Results: labs reviewed, vital signs stable, EKG personnaly reviewed, rythm personally rev'd, x-ray personally reviewed, radha abreu med profile rev'd Quality: Trauma Gen Surg Advanced Care Plan 65 or Older Discussed with: patient Discussion included: living will (none), power of employee benefits attorney (none), code status ( full code) VTE Prophylaxis - General VTE prophylaxis initiated: yes Diagnosis, Assessment Plan Hospital course to date: This is a 81-year-old gentleman who presented to an outside hospital with complaints of chest pains while walking at his home on Thursday. He denies any previous history of coronary artery disease or o ther LA. [facility]. He was found to have a urinary [...] Electronically Signed by Gianna Hoover on 0 07/11/22 at 1625 at 1950 RPT #:[id number] END OF REPORT 2022-07-11 10:54:00-00:00 [facility] ([facility]) Hospitalist Progress Note REPORT#:[id number] REPORT STATUS: Signed DATE:07/11/22 TIME: 1054 PATIENT: SHERRI ARCE UNIT #: [id number] ROOM/BED: [place] [address] : 42 AGE: 81 SEX: M ATTEND: Radha Ward ADM AUTHOR: Radha Ward MD * ALL edits or amendments must be made on the el [employer]/computer document * Subjective Chief complaint: Status post CABG x5 on 07/09, 1 chest tube out, 1 chest tube in, off pressors, CRRT versus hemodialysis as per nephrology, we dilip su consulted. Worked with PT in his room. No pain as reported by patient. HPI: 81 y/o man with PMHx of HTN, Dyslipidemia that presented to [facility] last Thursday06/28/22 with chest pain and found to have a NSTEMI and also acute renal failure. Underwent cardiac c ath yesterday and found to have severe CAD including left main disease. Transfer here f or CABG evaluation. He also underwent HD Thursday and Thursday of this week. HD catheter was place at [facility]. Currently not having any chest pain. Had chest pain with SOB when he presentted to the previous hospital. Objective General VS/I O: Vital Signs: Date Time Temp Pulse Resp B/P B/P Pulse O2 O2 F low FiO2 Mean Ox Delivery Rate 02/ 0800 [...] I O ending at 0700: 07/11 0700 02/02 1900 Intake Total 1017.00 1283.00 [...] Meds + DC'd Last 24 Hrs Ipratropium [place] (ATROVENT) 500 MCG RTQ2H PRN PRN INH [...] TABLET) 17.2 MG BED TIME PO Ipratropium [place] (ATROVENT) 500 MCG RTQ4H INH Acetaminophen (TYLENOL) [...] Lidocaine HCl (LIDOCAINE HCL/PF) 0.5 ML ASDIR [place] N I-DERMAL (CKD) Mannitol (Mannitol 20%) 12.5 [...] no cyanosis, no edema Musculoskeletal: normal inspection Neuro/SCREW SUPERVISOR: alert, oriented X 3, normal speech, n o motor deficits, no sensory deficits Skin: intact, normal color, no rash Psychiatry: normal affect Results Findings/Data: Laboratory Tests 07/11 07/11 07/11 07/11 1551 0969 0432 0226 Blood Gas Puncture Site Art Line Art Line [place] Art Line O2 Saturation (90 - [...] 98.6 98.8 O2 Delivery Device Cannula Cannula [facility] Laboratory Tests 07/11 07/11 07/11 07/11 07/11 [...] (3.4 - 5.0 g/dL) 3.30 L 07/10 1625 Chemistry POC Glucose (70 - 110 MG/DL) [...] (Auto) (14.0 - 32.0 %) 4.2 L Smyth % (Auto) (4.8 - 9.0 %) 7.5 Eos % (Auto) (0.3 - 3.7 %) 0.8 Baso % (Auto) (0.0 - 2.0 %) 0.3 Neut # (Auto) (2.0 - 7.6 x10 3/uL) 19.22 H Lymph # (Auto) (1.0 - 3.8 x10 3/uL) 0.93 L Smyth # (Auto) (0.1 - 0.8 x10 3/uL) [...] RADIOLOGY - XR CHEST 1 V 07/11 2454 Report Impression - Status: SIGNED Entered: 07/11/2022 5851 IMPRESSION: 1. Moderate enlarged cardiac silhouette. 2. [...] 6.5 s/p CABG 2 PRBC BT ordered / Monitor H H Leukocytosis: -Afebrile Monitor WBC [...] Discussion included: living will (none), power of employee benefits attorney (none), code status ( full code) Electronically Signed by Radha Ward MD on 3 at 1613 [facility] #:[id number] END OF REPORT 2022-07-11 09:43:00-00:00 [facility] ([facility]) Adult General Consultation REPORT#:[id number] REPORT STATUS: Signed DATE:07/11/22 TIME: 942 PATIENT: SHERRI ARCE UNIT #: [id number] ROOM/BED: [place] [address] : 42 AGE: 81 SEX: M ATTEND: Radha Ward ADM AUTHOR: Magdaleno Washburn * ALL edits or amendments must be made on the el [employer]/computer document * History of Present Illness Reason for consult: PMR consultation Chief complaint: Debility post CABG HPI: This is a 81-year-old gentleman who presented to an outside hospital with complaints of chest pains while walking at his home on Thursday. He denies any previous history of coronary artery disease or o ther LA. He was [facility] and [facility]. He was found to have a urinary [...] TAMSULOSIN ER (FLOMAX) 0.4 MG PO BEDTIME Strength: 0.4 MG CAP.SR.24H 2024 ATORVASTATIN (LIPITOR) [...] Dose Route Stop Time Status Admin Ipratropium [place] 500 MCG RTQ2H PRN PRN 07/11 1821 AC 07/10 (ATROVENT) INH 08/10 1820 1302 Dopamine HCl/Dextrose 250 ML ASDIR 07/10 2100 A C 07/10 (DOPamine 400MG/D5W IV 08/09 2059 2113 250ML) Ipratropium [place] 500 MCG RTQ4H 07/08 1900 A C 07/11 (ATROVENT) INH 08/07 1859 0744 Epinephrine 4 MG ASDIR 07/08 1830 AC 07/10 (ADRENALIN CHLORIDE) IV 08/07 1829 1201 Dextrose/Water 246 ML (DEXTROSE 5% WATER) Norepinephrine 250 ML TITRATE 07/08 1830 AC Bitartrate IV 08/07 1829 (NOREPINEPHRINE 8 MG/ NS 250 ML) Tamsulosin HCl 0.4 MG BEDTIME 07/02 2144 AC (Flomax 0.4 mg) PO 08/01 2144 2039 Blood Derivatives Sig/Earl Start time Last Medication Dose Route Stop Time Status Admin Albumin Human 12.5 GM ASDIR PRN 07/03 1200 AC 0 07/10 (ALBUMINAR-25%) IV 08/03 1155 1327 Blood Formation,Coagulation Sig/Earl Start time Last Medication Dose Route Stop Time Status Admin Ferrous Sulfate 325 MG DAILY 07/11 0900 AC (FERROUS SULFATE) PO 08/10 0859 Clopidogrel Bisulfate 75 MG DAILY 07/09 0900 A C 07/11 (Plavix) PO 08/08 0859 0928 Heparin [...] Sulfate 50 ML ASDIR PRN 07/09 07 AC (MAGNESIUM SULFATE IV 08/08 0659 2GM/SWFI 50ML) Aspirin 81 MG DAILY 07/09 0020 AC 07/11 (ASPIRIN) PO 08/08 0019 0927 Gabapentin 200 MG BID 07/08 2100 AC 07/11 (NEURONTIN) PO 07/13 0901 0928 Acetaminophen 650 MG Q4H PRN PRN 07/08 1830 AC 07/10 (TYLENOL) PO 08/07 182 1731 Acetaminophen 650 MG Q4H PRN PRN 07/08 1830 AC (TYLENOL) RECTAL 08/07 182 Magnesium Sulfate 100 ML ASDIR PRN 07/08 1830 AC (MAGNESIUM SULFATE IV 08/07 1829 4GM/SWFI 100ML) Magnesium Sulfate 50 ML ASDIR PRN 07/08 183 AC (MAGNESIUM SULFATE IV 08/07 182 2GM/SWFI 50ML) Magnesium Sulfate/ 100 ML ASDIR PRN 07/08 1830 AC 07/10 Dextrose IV 08/07 1829 1731 (MAGNESIUM SULFATE 1GM/D5W 100ML) Oxycodone HCl 5 MG Q4H PRN PRN 07/08 1830 AC (ROXICODONE) PO 07/13 182 1500 Oxycodone HCl [...] Gluconate/ 50 ML ONCE ONE 07/10 2300 DC 07/10 Sodium Chloride IV 07/10 230 2255 [...] AC 0 07/08 (CALCIUM CHLORIDE) IV 08/07 Dextrose/Water 125 ML ASDIR PRN 07/08 183 CKD (DEXTROSE 10% IN IV 08/07 1828 WATER) Dextrose/Water 250 ML ASDIR PRN 07/08 183 CKD (DEXTROSE 10% IN IV 08/07 182 WATER) Potassium Chloride 100 ML ASDIR PRN 07/08 1830 AC (KCL 20MEQ/SWFI IV 08/07 1829 100ML) Sodium Bicarbonate 50 MEQ ASDIR PRN 07/08 1830 AC 07/09 (SODIUM BICARBONATE) IV 08/07 182 0021 Sodium Chloride 1,000 ML .Q20H 07/08 1830 AC (SODIUM CHLORIDE IV 08/07 1829 0.9%) Sodium Chloride 250 ML Q24H 07/08 1830 AC (SODIUM CHLORIDE IV 08/07 1829 0.9%) Mannitol 12.5 GM ASDIR PRN 07/03 [...] Hydroxide 30 ML ONCE PRN 07/10 1200 DC 07/10 (MILK OF MAGNESIA) PO 1405 Polyethylene Glycol 17 GM DAILY 07/09 0900 AC 07/11 (MIRALAX) PO 08/08 0859 0928 Pantoprazole 40 MG DAILY@0600 07/09 0600 AC (PROTONIX) PO 08/08 0559 0506 Docusate Sodium 100 MG BID 07/08 2100 AC 07/11 (COLACE) PO 08/07 Sennosides 17.2 MG BEDTIME 07/08 2100 AC 07/10 (Senna Lax 8.6 MG PO 08/07 TABLET) Ondansetron HCl 4 MG Q6H PRN PRN 07/08 1830 AC (ZOFRAN) IV 08/07 1828 Hormones And Synthetic Substit Sig/Earl Start time Last Medication Dose Route Stop Time Status Admin Insulin Human Lispro 0 AC HS 07/10 1130 AC (HUMALOG) SUBQ 08/09 1129 Vasopressin 100 ML ASDIR 07/09 0015 CKD 07/09 (VASOSTRICT 20 Unit/ IV 08/08 13 2139 NS 100ML) Glucagon 1 MG ASDIR PRN 07/08 1830 AC (GLUCAGON) IM 03/02 1829 Skin And Mucous Membrane Agent Sig/Earl [...] 07/09 0730 AC Information MISC 08/08 0729 (PHARMACY TO DOSE/ EVALUATE) Allergies: Coded Allergies: [...] normal in spection, painless range of motion Neuro/SCREW SUPERVISOR: alert, oriented X 3, normal gait Skin: intact, no rash Lymphatics: no lymphadenopathy Psychiatry: normal affect, normal judgment/insig ht Results Findings/Data: Laboratory Tests: 07/11 07/11 07/11 07/11 0948 0743 0430 0229 Blood Gas Puncture Site Art Line [place] O2 Saturation (90 - 100 %) [...] (Auto) (14.0 - 32.0 %) 4.2 L Smyth % (Auto) (4.8 - 9.0 %) 7.5 Eos % (Auto) (0.3 - 3.7 %) 0.8 Baso % (Auto) (0.0 - 2.0 %) 0.3 Neut # (Auto) (2.0 - 7.6 x10 3/uL) 19.22 H Lymph # (Auto) (1.0 - 3.8 x10 3/uL) 0.93 L Smyth # (Auto) (0.1 - 0.8 x10 3/uL) [...] Plt Fraction (0.9 - 11.2 %) 6.5 02 02 1445 1156 Chemistry Sodium (134 - 147 [...] (Auto) (14.0 - 32.0 %) 3.2 L Smyth % (Auto) (4.8 - 9.0 %) 5.4 Eos % (Auto) (0.3 - 3.7 %) 0.4 Baso % (Auto) (0.0 - 2.0 %) 0.2 Neut # (Auto) (2.0 - 7.6 x10 3/uL) 22.14 H Lymph # (Auto) (1.0 - 3.8 x10 3/uL) 0.79 L Smyth # (Auto) (0.1 - 0.8 x10 3/uL) [...] insurance approval Thank you for referral Quality: [facility] Crit Care VTE Prophylaxis VTE prophylaxis initiated: yes Current Medications Current medication review: I attest that the foregoing medication list in [facility] medical record is true, accurate, and complete to the best of my knowled ge. Electronically Signed by Magdaleno Washburn on 0 07/12/22 at 0521 RPT #:[id number] END OF REPORT 2022-07-11 06:02:00-00:00 [facility] ([facility]) Critical Care Progress Note REPORT#:[id number] REPORT STATUS: Signed DATE:07/11/22 TIME: 0602 PATIENT: SHERRI ARCE UNIT #: [id number] ROOM/BED: [place] [address] : 42 AGE: 81 SEX: M ATTEND: Sam Mcarthur MD ADM AUTHOR: Edwardo Flannery MD * ALL edits or amendments must be made on the el [employer]/computer document * Subjective Chief complaint: CABG HPI: This is 81 years old male with medical history s ignificant for HTN and dyslipidemia who presented to [facility] Thursday06/28/22 with chest pain and found [...] Mean 62 07/11 555 Temp 99.3 07/11 555 Pulse 87 07/11 555 Resp 30 07/11 555 O2 Delivery High [...] Meds + DC'd Last 24 Hrs Ipratropium [place] (ATROVENT) 500 MCG RTQ2H PRN PRN INH [...] TABLET) 17.2 MG BED TIME PO Ipratropium [place] (ATROVENT) 500 MCG RTQ4H INH Acetaminophen (TYLENOL) [...] Lidocaine HCl (LIDOCAINE HCL/PF) 0.5 ML ASDIR KY N I-DERMAL (CKD) Mannitol (Mannitol 20%) 12.5 GM ASDIR PRN IV Sodium Chloride (SODIUM CHLORIDE 0.9%) 2,000 ML ASDIR PRN IV Tamsulosin HCl (Flomax 0.4 mg) 0.4 MG BEDTIME PO Results Findings/data: Laboratory Tests 07/11 07/11 07/10 0430 0226 1005 Blood Gas Puncture Site [place] Art Line Art Line O2 Saturation [...] Delivery Device HFNC HFNC Cannula Laboratory Tests 07/11 Chemistry Sodium (134 - 147 mEq/L) [...] - 32.0 %) 4.2 L 3.2 L Smyth % (Auto) (4.8 - 9.0 %) 7.5 5.4 Eos % (Auto) (0.3 - 3.7 %) 0.8 0.4 Baso % (Auto) (0.0 - 2.0 %) 0.3 0.2 Neut # (Auto) (2.0 - 7.6 x10 3/uL) 19.22 H 22.1 4 H Lymph # (Auto) (1.0 - 3.8 x10 3/uL) 0.93 L 0.79 L Smyth # (Auto) (0.1 - 0.8 x10 3/uL) [...] - 0.1 x10 3/uL) 0.0 0 0.00 Immature Plt Fraction (0.9 - 11.2 [...] Musculoskeletal: normal inspection, no muscle sp asm Neuro/SCREW SUPERVISOR: alert and oriented x3, CNII-XII gross ly [...] Edwardo Flannery MD on 12/28 at 0247 [facility] #:[id number] END OF REPORT 2022-07-10 14:49:00-00:[address] [facility] Cardiothoracic Surgery Prog REPORT#:[id number] REPORT STATUS: Signed DATE:07/10/22 TIME: 1449 PATIENT: SHERRI ARCE UNIT #: [id number] ROOM/BED: [place] [address] : 42 AGE: 81 SEX: M ATTEND: Srinath Kaur MD ADM AUTHOR: Rosalind Toribio * ALL edits or amendments must be made on the [employer]/computer document * General Post-op: day 2 Status [...] Genitourinary: waters, oN hd Extremities: moves all Neuro/SCREW SUPERVISOR: alert, oriented X 3, normal speech, n o motor deficits Psychiatry: normal affect, normal mood Current Medications Medications: Active Meds + DC'd Last 24 Hrs Ipratropium [place] (ATROVENT) 500 MCG RTQ2H PRN PRN INH [...] Chloride (SODIUM CHLORIDE 0.9%) 500 ML Ipratropium [place] (ATROVENT) 500 MCG RTQ4H INH Acetaminophen (TYLENOL) [...] Lidocaine HCl (LIDOCAINE HCL/PF) 0.5 ML ASDIR KY N I-DERMAL (CKD) Mannitol (Mannitol 20%) 12.5 GM ASDIR PRN IV Sodium Chloride (SODIUM CHLORIDE 0.9%) 2,000 ML ASDIR PRN IV Tamsulosin HCl (Flomax 0.4 mg) 0.4 MG BEDTIME PO Results Findings/Data: Laboratory Tests 07/10 07/10 07/09 07/09 1005 0324 1802 4469 Blood Gas Puncture Site Art Line Art Line [place] Art L ine O2 Saturation (90 [...] - 16.9 G/DL) 8.0 L 8.3 L 8.1 L 7.8 L Marylu Test N/A VBG [...] Temperature (F) 98.4 O2 Delivery Device Cannula [facility] 07/09 1840 Blood Gas Puncture Site R [...] 07/10 07/10 07/10 07/10 1156 1005 1000 0952 0590 Chemistry Sodium (134 - 147 mEq/L) 136 [...] 07/10 07/10 07/10 07/10 07/09 0515 0330 3336 6108 6540 Chemistry Sodium (134 - 147 mEq/L) 141 [...] - 32.0 %) 3.6 L 3.9 L Smyth % (Auto) (4.8 - 9.0 %) 8.3 7.9 Eos % (Auto) (0.3 - 3.7 %) 0.5 0.0 L Baso % (Auto) (0.0 - 2.0 %) 0.4 0.3 Neut # (Auto) (2.0 - 7.6 x10 3/uL) 20.33 H 18. 20 H Lymph # (Auto) (1.0 - 3.8 x10 3/uL) 0.84 L 0.82 L Smyth # (Auto) (0.1 - 0.8 x10 3/uL) [...] RADIOLOGY - XR CHEST 1 V 07/10 9420 Report Impression - Status: SIGNED Entered: 07/10/2022 5251 IMPRESSION: 1. Small left apical pneumothorax, new [...] Discussion included: living will (none), power of employee benefits attorney (none), code status ( full code) VTE Prophylaxis - General VTE prophylaxis initiated: yes Diagnosis, Assessment Plan Hospital course to date: This is a 81-year-old gentleman who presented to an outside hospital with complaints of chest pains while walking at his home on Thursday. He denies any previous history of coronary artery disease or o ther LA. He was [facility] and [facility] at [facility]. He was found to have a urinary [...] surgery, nephrology at 2033 at 1944 RPT #:[id number] END OF REPORT 2022-07-10 14:05:00-00:00 [facility] ([facility]) Cardiology Progress Note REPORT#:[id number] REPORT STATUS: Signed DATE:07/10/22 TIME: 1405 PATIENT: SHERRI ARCE UNIT #: [id number] ROOM/BED: [place] [address] : 42 AGE: 81 SEX: M ATTEND: Radha Ward ADM AUTHOR: Sonya Stacy CNP * ALL edits or amendments must be made on the [employer]/computer document * Subjective Comments: On small dose [...] 2100 36.8 72 26 98/52 72 94 02/2029 126/48 65 02/01 2030 36.4 73 100/55 73 96 07/09 [...] Meds + DC'd Last 24 Hrs Ipratropium [place] (ATROVENT) 500 MCG RTQ2H PRN PRN INH [...] Chloride (SODIUM CHLORIDE 0.9%) 500 ML Ipratropium [place] (ATROVENT) 500 MCG RTQ4H INH Acetaminophen (TYLENOL) [...] Sodium Chloride (SODIUM CHLORIDE 0.9%) 250 ML Q 24H IV Albumin Human (ALBUMINAR-25%) 12.5 GM ASDIR PRN IV Heparin Sodium (Porcine) (HEPARIN SODIUM) 3,000 UNIT ASDIR PRN DIALYSIS Lidocaine HCl (LIDOCAINE HCL/PF) 0.5 ML ASDIR KY N I-DERMAL (CKD) Mannitol (Mannitol 20%) 12.5 [...] temper ature, no edema Musculoskeletal: normal inspection Neuro/SCREW SUPERVISOR: alert, oriented X 3, normal speech Skin: dry Psychiatry: normal affect Results Findings/Data: Laboratory Tests 07/10 07/10 07/09 07/09 1005 9525 8543 6517 Blood Gas Puncture Site Art Line Art Line [place] Art L ine O2 Saturation (90 [...] Excess (-4.0 - 4.0 MMOL/L) 2.7 2.1 0. 2 ABG Hematocrit (37.5 - 50.7 %) 24 [...] Temperature (F) 98.4 O2 Delivery Device Cannula [facility] 07/09 1840 Blood Gas Puncture Site R [...] 07/10 07/10 07/10 07/10 1156 1005 1000 0668 5286 Chemistry Sodium (134 - 147 mEq/L) 136 [...] - 32.0 %) 3.6 L 3.9 L Smyth % (Auto) (4.8 - 9.0 %) 8.3 7.9 Eos % (Auto) (0.3 - 3.7 %) 0.5 0.0 L Baso % (Auto) (0.0 - 2.0 %) 0.4 0.3 Neut # (Auto) (2.0 - 7.6 x10 3/uL) 20.33 H 18.2 0 H Lymph # (Auto) (1.0 - 3.8 x10 3/uL) 0.84 L 0.82 L Smyth # (Auto) (0.1 - 0.8 x10 3/uL) [...] RADIOLOGY - XR CHEST 1 V 07/10 4491 Report Impression - Status: SIGNED Entered: 07/10/2022 3519 IMPRESSION: 1. Small left apical pneumothorax, new from prio r studies with thoracostomy tube in place. 2. Stable pulmonary opacities likely combination of airspace disease and atelectasis. 3. Stable small pleural effusions. 4. Stable postoperative cardiomediastinal silhou ette. Impression By: Robert Ratliff M.D. Results: labs reviewed, vital signs reviewed, [facility] personally rev'd Telemetry Interpretation: sinus rhythm Diagnosis, Assessment Plan Problem List/A P: 1. HTN (hypertension) 2. CLAUDETTE (acute kidney injury) 3. CAD (coronary artery disease) 4. Dyslipidemia 5. BPH (benign prostatic hyperplasia) Plan discussed with: patient, nurse Free Text DxA P Notes Free Text DxA P Notes: Mr. Arce is a pleasant 81 y/o M w/ PMHx: HTN, HLD presented to [facility] on 06/28/22 for chest pa in and [...] and diffuse 50-60% dRCA. He transferred to [facility] for CABG. - CAD/NSTEMI s/p CABG s/p [...] Signed by Liset Ennis MD on at 8235 RPT #:[id number] END OF REPORT 2022-07-10 12:46:00-00:00 [facility]) Hospitalist Progress Note REPORT#:[id number] REPORT STATUS: Signed DATE:07/10/22 TIME: 1246 PATIENT: SHERRI ARCE UNIT #: [id number] ROOM/BED: [place] [address] : 42 AGE: 81 SEX: M ATTEND: Radha Ward ADM AUTHOR: Radha Ward MD * ALL edits or amendments must be made on the [employer]/computer document * Subjective Chief complaint: Status post CABG x5 on 07/09, 1 chest tube out, 1 chest tube in, on epinephrine, on CRRT, on 2 L oxygen via nasal cannula. Skinny allen reports pain is well controlled. He is feeling better. HPI: 81 y/o man with PMHx of HTN, Dyslipidemia that presented to [facility] last Thursday06/28/22 with chest pain and found to have a NSTEMI and also acute renal failure. Underwent cardiac c ath yesterday and found to have severe CAD including left main disease. Transfer here f or CABG evaluation. He also underwent HD Thursday and Thursday of this week. HD catheter was place at [facility]. Currently not having any chest pain. Had [...] 02/01 2029 97.5 73 100/55 73 96 /2013 95 Nasal 3 cannula 07/09 1999 High [...] I O ending at 0700: 07/10 0700 02/01 1900 Intake Total 1384.00 2715.00 Output Total 2867 2732 Balance -1483.00 -17.00 Intake, IV 554.00 815.00 Intake, Oral 480 1900 Intake, 350 Packed Cells Output, CRRT 2716 2200 Ultrafiltration Output, Chest 50 210 Tube Drainage Output, Urine 101 322 PATIENT WEIGHT: Weight (lb): 185 Weight (oz): 3.01 Weight (kg): 84.000 Medications: Active Meds + DC'd Last 24 Hrs Ipratropium [place] (ATROVENT) 500 MCG RTQ2H PRN PRN INH [...] PO Metoprolol Tartrate (LOPRESSOR) 12.5 MG Q12HR P O Mupirocin (BACTROBAN 2% 22 GM OINTMENT) 1 APPLIC BID NASAL Sennosides (Senna Lax 8.6 MG TABLET) 17.2 MG BED TIME PO Ipratropium [place] (ATROVENT) 500 MCG RTQ4H INH Acetaminophen (TYLENOL) [...] Lidocaine HCl (LIDOCAINE HCL/PF) 0.5 ML ASDIR KY N I-DERMAL (CKD) Mannitol (Mannitol 20%) 12.5 [...] no cyanosis, no edema Musculoskeletal: normal inspection Neuro/SCREW SUPERVISOR: alert, oriented X 3, normal speech, n o motor deficits, no sensory deficits Skin: intact, normal color, no rash Psychiatry: normal affect Results Findings/Data: Laboratory Tests 07/10 07/10 07/09 07/09 1005 0178 0287 2132 Blood Gas Puncture Site Art Line Art Line [place] Art Line O2 Saturation (90 - 100 %) 96.7 [...] Temperature (F) 98.4 O2 Delivery Device Cannula [facility] 07/09 1840 Blood Gas Puncture Site R [...] (1.80 - 2.40 mg/dL) 2.39 2.28 07/10 07/10 07/10 07/10 07/10 0959 [id number] Chemistry Sodium [...] - 32.0 %) 3.2 L 3.6 L S[place]th % (Auto) (4.8 - 9.0 %) 5.4 8.3 Eos % (Auto) (0.3 - 3.7 %) 0.4 0.5 Baso % (Auto) (0.0 - 2.0 %) 0.2 0.4 Neut # (Auto) (2.0 - 7.6 x10 3/uL) 22.14 H 20.3 3 H Lymph # (Auto) (1.0 - 3.8 x10 3/uL) 0.79 L 0.84 L S[place]th # (Auto) (0.1 - 0.8 x10 3/uL) 1.32 H 1.95 H Eos # (Auto) (0.0 - 0.2 x10 3/uL) 0.09 0.12 Baso # (Auto) (0.0 - 0.2 x10 3/uL) 0.06 0.10 Abs Immat Gran (auto) (0.00 - 0.03 x10 3/uL) 0. 26 H 0.17 H Add Manual Diff NO NO Immature Gran % (0.0 - 2.0 %) 1.1 0.7 Nucleated RBC % (0 - 0 %) 0.0 0.0 Nucleated RBCs # (Man) (0.0 - 0.1 x10 3/uL) 0.0 0 0.00 Radiology data: Recent Impressions: RADIOLOGY - XR CHEST 1 V 07/10 2762 Report Impression - Status: SIGNED Entered: 07/10/2022 5493 IMPRESSION: 1. Small left apical pneumothorax, new [...] 6.5 s/p CABG 2 PRBC BT ordered 2/ Monitor H H HTN (hypertension) patient on [...] Discussion included: living will (none), power of employee benefits attorney (none), code status ( full code) Electronically Signed by Radha Ward MD on 3 at 1749 RPT #:[id number] END OF REPORT 2022-07-10 10:05:00-00:00 HCACL [facility] ([facility]) Nephrology Progress Note REPORT#:[id number] REPORT STATUS: Signed DATE:07/10/22 TIME: 1005 PATIENT: SHERRI ARCE UNIT #: [id number] ROOM/BED: [place] [address] : 42 AGE: 81 SEX: M ATTEND: Radha Ward ADM AUTHOR: Evelina Plaza MD * ALL edits or amendments must be made on the el [employer]/computer document * Subjective Chief complaint: has no [...] 24 hour I O ending at 0700: 02/03 0700 / 1900 Intake Total 1017.00 1283.00 Output Total [...] Meds + DC'd Last 24 Hrs Ipratropium [place] (ATROVENT) 500 MCG RTQ2H PRN PRN INH [...] ML Sodium Phosphate (SODIUM PHOSPHATE) 20 MMOL ASD IR PRN IV Sodium Chloride [...] PO Metoprolol Tartrate (LOPRESSOR) 12.5 MG Q12HR P O Mupirocin (BACTROBAN 2% 22 GM OINTMENT) 1 APPLIC BID NASAL Sennosides (Senna Lax 8.6 MG TABLET) 17.2 MG BED TIME PO Ipratropium [place] (ATROVENT) 500 MCG RTQ4H INH Acetaminophen (TYLENOL) [...] Lidocaine HCl (LIDOCAINE HCL/PF) 0.5 ML ASDIR [place] N I-DERMAL (CKD) Mannitol (Mannitol 20%) 12.5 GM ASDIR PRN IV Sodium Chloride (SODIUM CHLORIDE 0.9%) 2,000 ML ASDIR PRN IV Tamsulosin HCl (Flomax 0.4 mg) 0.4 MG BEDTIME PO Physical Exam General appearance: alert, awake Head/eyes: atraumatic, normocephalic ENT: moist mucous membranes, normal nose Neck: non-tender, no JVD Extremities: no edema, no swelling Neuro/SCREW SUPERVISOR: alert, oriented X 3, normal speech Skin: dry, intact Results Findings/Data: Laboratory Tests 07/11 07/11 07/11 07/11 5243 1335 0406 5479 Blood Gas Puncture Site Art Line Art Line [place] Al[place] Art L ine O2 Saturation (90 [...] 07/11 07/11 07/11 07/11 1551 1545 0948 2181 3994 Chemistry POC Creatinine (0.8 - 1.3 mg/dL) [...] (Auto) (14.0 - 32.0 %) 4.2 L Smyth % (Auto) (4.8 - 9.0 %) 7.5 Eos % (Auto) (0.3 - 3.7 %) 0.8 Baso % (Auto) (0.0 - 2.0 %) 0.3 Neut # (Auto) (2.0 - 7.6 x10 3/uL) 19.22 H Lymph # (Auto) (1.0 - 3.8 x10 3/uL) 0.93 L Smyth # (Auto) (0.1 - 0.8 x10 3/uL) [...] RADIOLOGY - XR CHEST 1 V 07/11 9854 Report Impression - Status: SIGNED Entered: 07/11/2022 7702 IMPRESSION: 1. Moderate enlarged cardiac silhouette. 2. [...] Plaza MD on 08/28 at 1603 RPT #:[id number] END OF REPORT 2022-07-10 09:21:00-00:[address] [facility] Critical Care Progress Note REPORT#:[id number] REPORT STATUS: Signed DATE:07/10/22 TIME: 920 PATIENT: SHERRI ARCE UNIT #: [id number] ROOM/BED: [place] [address] : 42 AGE: 81 SEX: M ATTEND: Radha Ward ADM AUTHOR: Edwardo Flannery MD * ALL edits or amendments must be made on the el [employer]/computer document * Subjective Chief complaint: CABG HPI: This is 81 years old male with medical history s ignificant for HTN and dyslipidemia who presented to [facility] Thursday06/28/22 with chest pain and found [...] Documented: Result Date Time B/P 135/46 07/10 0600 B/P Mean 65 07/10 0600 Pulse Ox 95 07/10 0600 Temp 98.6 07/10 0600 Pulse 80 07/10 0600 Resp 24 07/10 [...] Meds + DC'd Last 24 Hrs Ipratropium [place] (ATROVENT) 500 MCG RTQ2H PRN PRN INH [...] Chloride (SODIUM CHLORIDE 0.9%) 500 ML Ipratropium [place] (ATROVENT) 500 MCG RTQ4H INH Acetaminophen (TYLENOL) 650 MG Q4H PRN PRN PO Acetaminophen (TYLENOL) 650 MG Q4H PRN PRN RECT AL Albumin Human (ALBUMINAR 25%) 25 GM ASDIR [...] Lidocaine HCl (LIDOCAINE HCL/PF) 0.5 ML ASDIR KY N I-DERMAL (CKD) Mannitol (Mannitol 20%) 12.5 GM ASDIR PRN IV Sodium Chloride (SODIUM CHLORIDE 0.9%) 2,000 ML ASDIR PRN IV Tamsulosin HCl (Flomax 0.4 mg) 0.4 MG BEDTIME PO Results Findings/data: Laboratory Tests 07/10 07/09 07/09 07/09 0328 9446 5977 6953 Blood Gas Puncture Site Art Line [place] Al[place] Art Line R Rad ial O2 [...] %) 24 L 24 L 23 L 25 L ABG Hemoglobin (12.5 - 16.9 [...] - 1.3 mg/dL) 2.9 H 3.0 H 3. 2 H Glomerular Filtr Rate (70 - 80) [...] 2.40 mg/dL) 2.28 2.37 Laboratory Tests 07/10 07/09 0330 1600 Hematology [...] - 32.0 %) 3.6 L 3.9 L Smyth % (Auto) (4.8 - 9.0 %) 8.3 7.9 Eos % (Auto) (0.3 - 3.7 %) 0.5 0.0 L Baso % (Auto) (0.0 - 2.0 %) 0.4 0.3 Neut # (Auto) (2.0 - 7.6 x10 3/uL) 20.33 H 18.2 0 H Lymph # (Auto) (1.0 - 3.8 x10 3/uL) 0.84 L 0.82 L Smyth # (Auto) (0.1 - 0.8 x10 3/uL) [...] 1235: [Embedded Image Not Available] Microbiology: 07/07 2230 NASAL: MSSA Surveillance Screen - ORD 07/07 2230 NASAL: MRSA DNA Surveillance Screen - ORD Radiology data Recent Impressions: RADIOLOGY - XR CHEST 1 V 07/10 0526 Report Impression - Status: SIGNED Entered: 07/10/2022 0846 IMPRESSION: 1. Small left apical pneumothorax, new from prio r studies with thoracostomy tube in place. 2. Stable pulmonary opacities likely combination of airspace disease and atelectasis. 3. Stable small pleural effusions. 4. Stable postoperative cardiomediastinal silhou ette. Impression By: Robert Ratliff M.D. Free Text [...] Musculoskeletal: normal inspection, no muscle sp asm Neuro/SCREW SUPERVISOR: alert and oriented x3, CNII-XII gross ly [...] Flannery MD on 08/28 at 1500 RPT #:[id number] END OF REPORT 2022-07-09 18:57:00-00:00 [facility]ACL [facility] ([facility]) Nephrology Progress Note REPORT#:[id number] REPORT STATUS: Signed DATE:07/09/22 TIME: 1856 PATIENT: SHERRI ARCE UNIT #: [id number] ROOM/BED: [address] [place] : 42 AGE: 81 SEX: M ATTEND: Radha Ward ADM AUTHOR: Evelina Plaza MD * ALL edits or amendments must be made on the [employer] document * Subjective Chief complaint: has no [...] 2230 97.5 114 15 100/51 69 100 07/085 97.3 123 20 78/49 57 100 07/08 [...] Meds + DC'd Last 24 Hrs Ipratropium [place] (ATROVENT) 500 MCG RTQ2H PRN PRN INH [...] Chloride (SODIUM CHLORIDE 0.9%) 500 ML Ipratropium [place] (ATROVENT) 500 MCG RTQ4H INH Acetaminophen (TYLENOL) [...] (DC ) Heparin Sodium (Porcine) (HEPARIN SODIUM) 1,66 0 UNIT Sodium Bicarbonate (SODIUM BICARBONATE) 0.7 ML [...] Sodium Chloride (SODIUM CHLORIDE 0.9%) 500 ML P REOP ONCALL IV (DC) Sodium Chloride (SODIUM CHLORIDE 0.9%) 500 ML KY EOP ONCALL IV (DC) Sodium Chloride (SODIUM CHLORIDE) 5 ML ASDIR PRN IV (DC) Sodium Chloride (SODIUM CHLORIDE) 10 ML ASDIR KY N IV (DC) Sodium Chloride (SODIUM CHLORIDE [...] Lidocaine HCl (LIDOCAINE HCL/PF) 0.5 ML ASDIR KY N I-DERMAL (CKD) Mannitol (Mannitol 20%) 12.5 GM ASDIR PRN IV Sodium Chloride (SODIUM CHLORIDE 0.9%) 2,000 ML ASDIR PRN IV Sodium Chloride (SODIUM CHLORIDE) 5 ML ASDIR PRN IV (DC) Sodium Chloride (SODIUM CHLORIDE) 10 ML ASDIR KY N IV (DC) Sodium Chloride (SODIUM CHLORIDE [...] no JVD Extremities: no edema, no swelling Neuro/SCREW SUPERVISOR: alert, oriented X 3, normal speech Skin: dry, intact Results Findings/Data: Laboratory Tests 07/09 07/09 07/09 07/09 1840 1018 0333 0306 Blood Gas Puncture Site R Radial Art Line [place] Al[place] Art Line O2 Saturation (90 - 100 %) 83.1 [...] Excess (-4.0 - 4.0 MMOL/L) -0.6 -0.6 -4.7 L ABG Hematocrit (37.5 - 50.7 %) [...] O2 Delivery Device Room Air Cannula Cannula Ca nnula 07/08 07/08 07/08 2730 3391 7 Blood Gas Puncture Site Art Line Art Line [place] O2 Saturation (90 - 100 %) [...] 7.7 L 8.7 L 8 .0 L Amrylu Test N/A N/A N/A VBG pH (7.33 [...] (cmH2O) 5 5 Pressure Support (cmH2O) 07/08 193 Blood Gas Puncture Site Art Line O2 [...] 07/08 07/08 07/08 07/08 07/08 2234 2151 2046 1940 1940 Chemistry Sodium (134 - 147 [...] SECONDS) 16. 2 H Laboratory Tests 07/09 07/09 1600 0300 Hematology WBC (4.5 - 11.0 [...] - 32.0 %) 3.9 L 1.2 L Smyth % (Auto) (4.8 - 9.0 %) 7.9 6.6 Eos % (Auto) (0.3 - 3.7 %) 0.0 L 0.0 L Baso % (Auto) (0.0 - 2.0 %) 0.3 0.2 Neut # (Auto) (2.0 - 7.6 x10 3/uL) 18.20 H 22. 60 H Lymph # (Auto) (1.0 - 3.8 x10 3/uL) 0.82 L 0.31 L Smyth # (Auto) (0.1 - 0.8 x10 3/uL) [...] (Auto) (14.0 - 32.0 %) 3.5 L Smyth % (Auto) (4.8 - 9.0 %) 3.9 L Eos % (Auto) (0.3 - 3.7 %) 1.4 Baso % (Auto) (0.0 - 2.0 %) 0.3 Neut # (Auto) (2.0 - 7.6 x10 3/uL) 34.72 H Lymph # (Auto) (1.0 - 3.8 x10 3/uL) 1.40 Smyth # (Auto) (0.1 - 0.8 x10 3/uL) [...] Plaza MD on 06/30 at 1909 RPT #:[id number] END OF REPORT 2022-07-09 12:54:00-00:[address] [facility] Cardiothoracic Surgery Prog REPORT#:[id number] REPORT STATUS: Signed DATE:07/09/22 TIME: 1254 PATIENT: SHERRI ARCE UNIT #: [id number] ROOM/BED: [place] [address] : 42 AGE: 81 SEX: M ATTEND: Srinath Kaur MD ADM AUTHOR: Rosalind Toribio * ALL edits or amendments must be made on the [employer]/computer document * General Post-op: day 1 Status [...] Result Date Time Pulse Ox 96 07/09 725 O2 Delivery Nasal cannula 07/09 725 O2 Flow Rate 3 07/09 725 B/P 96/53 07/09 699 B/P Mean 71 07/09 699 Temp 98.4 07/09 699 Pulse 92 07/09 699 Resp 3 07/09 699 FiO2 50 07/08 1919 24 hour I O ending at 0700: 07/09 1900 Intake Total 2090.50 300 Output Total [...] Genitourinary: waters, oN hd Extremities: moves all Neuro/SCREW SUPERVISOR: alert, oriented X 3, normal speech, n o motor deficits Psychiatry: normal affect, normal mood Current Medications Medications: Active Meds + DC'd Last 24 Hrs Ipratropium [place] (ATROVENT) 500 MCG RTQ2H PRN PRN INH [...] Chloride (SODIUM CHLORIDE 0.9%) 500 ML Ipratropium [place] (ATROVENT) 500 MCG RTQ4H INH Acetaminophen (TYLENOL) [...] 0.9%) 250 ML Q2 4H IV Rocuronium [place] (ZEMURON) 0 .STK-MED ONE IV ( DC) [...] Sodium (KEFZOL OR ANCEF) 2 GM PREOP PULMONARY NURSE PRACTITIONER IV (DC) Vancomycin HCl (VANCOMYCIN HCL) 1,250 [...] Sodium Chloride (SODIUM CHLORIDE 0.9%) 500 ML KY EOP ONCALL IV (DC) Sodium Chloride (SODIUM CHLORIDE 0.9%) 500 ML KY EOP ONCALL IV (DC) Sodium Chloride (SODIUM CHLORIDE) 5 ML ASDIR PRN IV (DC) Sodium Chloride (SODIUM CHLORIDE) 10 ML ASDIR KY N IV (DC) Sodium Chloride (SODIUM CHLORIDE [...] Lidocaine HCl (LIDOCAINE HCL/PF) 0.5 ML ASDIR KY N I-DERMAL (CKD) Mannitol (Mannitol 20%) 12.5 GM ASDIR PRN IV Sodium Chloride (SODIUM CHLORIDE 0.9%) 2,000 ML ASDIR PRN IV Sodium Chloride (SODIUM CHLORIDE) 5 ML ASDIR PRN IV (DC) Sodium Chloride (SODIUM CHLORIDE) 10 ML ASDIR KY N IV (DC) Sodium Chloride (SODIUM CHLORIDE [...] Tests 07/09 07/09 07/09 07/08 1018 0333 2216 7953 Blood Gas Puncture Site Art Line [place] Al[place] Art Line Art L ine O2 Saturation (90 - 100 %) 93.8 [...] 07/08 Blood Gas Puncture Site Art Line [place] Al[place] Art Line O2 Saturation (90 - [...] (90 - 100 %) 99.9 100.0 99.9 100 .0 ABG pH (7.35 - 7.45) 7.313 L 7.432 7.401 7.355 ABG pCO2 (35.0 - 45 mmHg) 36.8 33.6 L 33.4 L 43 .3 ABG pO2 (80 - 100.0 mmHg) 375.0 [...] 07/09 07/09 07/09 07/09 07/09 1245 1018 0863 0727 0333 Chemistry POC Creatinine (0.8 - 1.3 [...] 07/08 07/08 07/08 07/08 2335 2234 2151 6 1940 Chemistry POC Creatinine (0.8 - 1.3 [...] - 32.0 %) 1.2 L 3.5 L Smyth % (Auto) (4.8 - 9.0 %) 6.6 3.9 L Eos % (Auto) (0.3 - 3.7 %) 0.0 L 1.4 Baso % (Auto) (0.0 - 2.0 %) 0.2 0.3 Neut # (Auto) (2.0 - 7.6 x10 3/uL) 22.60 H 34.7 2 H Lymph # (Auto) (1.0 - 3.8 x10 3/uL) 0.31 L 1.40 Smyth # (Auto) (0.1 - 0.8 x10 3/uL) [...] M.D. Results: labs reviewed, vital signs stable, rycharissa m personally rev'd, x-ray personally reviewed, current med profile rev'd Quality: Trauma Gen Surg Advanced Care Plan 65 or Older Discussed with: patient Discussion included: living will (none), power of employee benefits attorney (none), code status ( full code) VTE Prophylaxis - General VTE prophylaxis initiated: yes Diagnosis, Assessment Plan Hospital course to date: This is a 81-year-old gentleman who presented to an outside hospital with complaints of chest pains while walking at his home on Thursday. He denies any previous history of coronary artery disease or o ther LA. [facility]. He was found to have a urinary [...] surgery, nephrology at 1535 at 1943 RPT #:[id number] END OF REPORT 2022-07-09 11:40:00-00:00 [id number] [place] [address] PATIENT NAME: SHERRI ARCE ADMIT DATE: 07/02/22 ACCOUNT NO: [id number] [place]OM NO: [facility] [place] AGE: 81 REPORT TYPE: OPERATIVE REPORT SEX: M ADMITTING PHYSICIAN:Radha Ward MD ATTENDING PHYSICIAN:Sarbjit Mcarthur MD OPERATION DATE: 07/08/2022 PREOPERATIVE DIAGNOSIS: Coronary artery disease. POSTOPERATIVE DIAGNOSIS: Coronary artery disease . PROCEDURE: Urgent coronary artery bypass graftarianne martin SURGEON: Lina Schwarz M.D. [employer] GROWER: Renny Rodríguez M.D. ANESTHESIA: PROCEDURE IN DETAIL: [...] Date Transcribed: 07/09/2022 12:32:35 KM/MAN Receipt ID: [id number] Authenticated by Renny Rodríguez MD, FACS On 0 07/17/2022 07:44:37 PM at 0744 PATIENT NAME: SHERRI ARCE 2022-07-09 11:09:00-00:[address] [facility] Hospitalist Progress Note REPORT#:[id number] REPORT STATUS: Signed DATE:07/09/22 TIME: 1109 PATIENT: SHERRI ARCE UNIT #: [id number] ROOM/BED: [place] [address] : 42 AGE: 81 SEX: M ATTEND: Radha Ward ADM AUTHOR: Radha Ward MD * ALL edits or amendments must be made on the [employer]/computer document * Subjective Chief complaint: Status post CABG x5 yesterday, chest tube in sarah ce, on 2 L oxygen via nasal cannula, on epinephrine and vasopressin, plan for CRRT today, 2 PRBC BT ordered, Waters catheter in place, diet ordered. Pain cont rolled. HPI: 81 y/o man with PMHx of HTN, Dyslipidemia that presented to [facility] last Thursday06/28/22 with chest pain and found to have a NSTEMI and also acute renal failure. Underwent cardiac c ath yesterday and found to have severe CAD including left main disease. Transfer here f or CABG evaluation. He also underwent HD Thursday and Thursday of this week. HD catheter [facility] at [facility]. Currently not having any chest pain. Had [...] 97.2 111 20 86/47 61 100 07/08 2150 97.2 111 17 90/55 69 99 07/08 [...] 24 hour I O ending at 0700: 02/01 0700 07/08 1900 Intake Total 2090.50 300 Output Total 480 300 Balance 1610.50 0 Intake, IV 1850.50 Intake, Oral 240 300 Intake, Oral 0 Supplement Number 0 Bowel Movements Output, Chest 330 Tube Drainage Output, Urine 150 300 PATIENT WEIGHT: Weight (lb): 185 Weight (oz): 3.01 Weight (kg): 84.000 Medications: Active Meds + DC'd Last 24 Hrs Ipratropium [place] (ATROVENT) 500 MCG RTQ2H PRN PRN INH [...] Potassium Chloride (KCL 10MEQ/SWFI 50ML) 50 ML ASDIR PRN IV Sodium Chloride (SODIUM CHLORIDE [...] Chloride (SODIUM CHLORIDE 0.9%) 500 ML Ipratropium [place] (ATROVENT) 500 MCG RTQ4H INH Acetaminophen (TYLENOL) [...] 0.9%) 250 ML Q2 4H IV Rocuronium [place] (ZEMURON) 0 .STK-MED ONE IV ( DC) [...] Sodium (KEFZOL OR ANCEF) 2 GM PREOP PULMONARY NURSE PRACTITIONER IV (DC) Vancomycin HCl (VANCOMYCIN HCL) 1,250 [...] Sodium Chloride (SODIUM CHLORIDE 0.9%) 500 ML KY EOP ONCALL IV (DC) Sodium Chloride (SODIUM CHLORIDE 0.9%) 500 ML KY EOP ONCALL IV (DC) Sodium Chloride (SODIUM CHLORIDE) 5 ML ASDIR PRN IV (DC) Sodium Chloride (SODIUM CHLORIDE) 10 ML ASDIR KY N IV (DC) Sodium Chloride (SODIUM CHLORIDE [...] Lidocaine HCl (LIDOCAINE HCL/PF) 0.5 ML ASDIR KY N I-DERMAL (CKD) Mannitol (Mannitol 20%) 12.5 GM ASDIR PRN IV Sodium Chloride (SODIUM CHLORIDE 0.9%) 2,000 ML ASDIR PRN IV Sodium Chloride (SODIUM CHLORIDE) 5 ML ASDIR PRN IV (DC) Sodium Chloride (SODIUM CHLORIDE) 10 ML ASDIR KY N IV (DC) Sodium Chloride (SODIUM CHLORIDE [...] no cyanosis, no edema Musculoskeletal: normal inspection Neuro/SCREW SUPERVISOR: alert, oriented X 3, normal speech, n o motor deficits, no sensory deficits Skin: intact, normal color, no rash Psychiatry: normal affect Results Findings/Data: Laboratory Tests 07/09 07/09 07/09 07/08 1018 0333 0306 2335 Blood Gas Puncture Site Art Line [place] Al[place] Art Line Art L ine O2 Saturation (90 - 100 %) 93.8 [...] 07/08 Blood Gas Puncture Site Art Line [place] Al[place] Art Line O2 Saturation (90 - [...] 45 mmHg) 36.8 33.6 L 33.4 L 43 .3 ABG pO2 (80 - 100.0 mmHg) 375.0 *H 404.5 *H 327 .7 *H 469.8 *H ABG HCO3 (22.0 - 26.0 MMOL/L) 18.7 L 22.4 20.7 L 24.2 ABG Total CO2 19.8 23.4 21.7 25.5 ABG Base Excess (-4.0 - 4.0 MMOL/L) -6.9 L -1.6 -3.6 -1.3 ABG Hematocrit (37.5 - 50.7 %) 22 L 23 L 25 L 25 L ABG Hemoglobin (12.5 - 16.9 [...] 07/09 07/09 07/09 07/09 1245 1235 1018 0835 3747 Chemistry Sodium (134 - 147 mEq/L) 145 [...] - 32.0 %) 1.2 L 3.5 L Smyth % (Auto) (4.8 - 9.0 %) 6.6 3.9 L Eos % (Auto) (0.3 - 3.7 %) 0.0 L 1.4 Baso % (Auto) (0.0 - 2.0 %) 0.2 0.3 Neut # (Auto) (2.0 - 7.6 x10 3/uL) 22.60 H 34.7 2 H Lymph # (Auto) (1.0 - 3.8 x10 3/uL) 0.31 L 1.40 Smyth # (Auto) (0.1 - 0.8 x10 3/uL) [...] Discussion included: living will (none), power of employee benefits attorney (none), code status ( full code) Electronically Signed by Radha Ward MD on 3 at 1446 [facility] #:[id number] END OF REPORT 2022-07-09 08:06:00-00:[address] [facility] Cardiology Progress Note REPORT#:[id number] REPORT STATUS: Signed DATE:07/09/22 TIME: 08 PATIENT: SHERRI ARCE UNIT #: [id number] ROOM/BED: [place] [address] : 42 AGE: 81 SEX: M ATTEND: Radha Ward ADM AUTHOR: Jyoti Browning NP * ALL edits or amendments must be made on the [employer]/computer document * Subjective Chief complaint: s/p surgery Objective General VS/I O: Laboratory Tests 07/09/22 0300: [Embedded Image Not Available] 07/08/22 1940: [Embedded Image Not Available] 07/08/22 0530: [Embedded Image Not Available] Current Medications Sig/Earl Start time Last Medication Dose Route Stop Time Status Admin Ipratropium [place] 500 MCG RTQ2H PRN PRN 02 3 1821 AC INH 08/10 1820 Cyanocobalamin 500 MCG DAILY 07/11 0900 AC PO 08/10 0859 Ferrous Sulfate 325 MG DAILY 07/11 0900 AC PO 08/10 0859 Bisacodyl 10 MG ONCE PRN 07/10 1200 AC RECTAL 08/09 1159 Magnesium Hydroxide 30 ML ONCE PRN 07/10 1200 A C PO Atorvastatin Calcium 40 MG 2100 07/09 2100 AC PO 08/08 2059 Clopidogrel Bisulfate 75 MG DAILY 07/09 0900 AC 07/09 PO 08/08 0859 0909 Polyethylene [...] Sodium Chloride 2,000 ML ASDIR PRN 07/09 07 A C IV 08/08 0659 Sodium Phosphate 25 MMOL ASDIR PRN 07/09 0700 A C Sodium Chloride 250 ML IV 08/08 0659 Sodium Phosphate 20 MMOL ASDIR PRN 07/09 07 AC Sodium Chloride 250 ML IV 08/08 0659 Sodium Phosphate 15 MMOL ASDIR PRN 07/09 07 A C Sodium Chloride 250 ML IV 08/08 0659 Pantoprazole 40 MG DAILY@0600 07/09 0600 AC PO 08/08 0559 0702 Aspirin 81 MG DAILY 07/09 0020 AC 07/09 PO 08/08 0019 0909 Vasopressin 100 ML ASDIR 07/09 0015 CKD IV 08/08 0014 Albumin Human 250 ML ONCE ONE 07/08 2345 DC IV 07/09 0014 0022 Glycopyrrolate 1 MG ONCE ONE 07/08 2144 DC 06/10 1 IV 07/08 2145 2145 Neostigmine 5 MG ONCE ONE 07/08 2145 DC 07/08 Methylsulfate IV 07/08 214 2145 Amiodarone HCl 200 MG TID 07/08 2100 AC 07/09 PO 08/07 2058 0909 Docusate Sodium 100 MG BID 07/08 2100 AC 07/09 PO 08/07 2058 0909 Gabapentin 200 MG BID 07/08 2100 AC 07/09 PO 07/13 0901 0909 Metoprolol Tartrate 12.5 MG Q12HR 07/08 2100 AC PO 08/07 2058 Mupirocin 1 APPLIC BID 07/08 2100 AC 07/09 NASAL 05 0901 0911 Sennosides 17.2 MG BEDTIME 07/08 2100 AC 07/09 PO 08/07 2058 0021 Albumin Human 100 ML .STK-MED ONE 07/08 1920 DC IV Cefazolin Sodium 6 GM ONCE ONE 07/08 1899 CKD 0 07/08 Sodium Chloride 500 ML IV 07/09 1459 202 Ipratropium [place] 500 MCG RTQ4H 07/08 190 AC 07/09 INH 08/07 1859 0726 Acetaminophen 650 MG Q4H PRN PRN 07/08 1830 AC 07/09 PO 08/07 1829 0911 Acetaminophen 650 MG Q4H PRN PRN 07/08 1830 AC RECTAL / 1829 Albumin Human 25 GM ASDIR PRN 07/08 1830 AC IV 07/09 1820 2345 Calcium Chloride 1 GM ASDIR PRN 07/08 1830 AC 0 07/08 IV 08/07 1829 2027 Dextrose/Water 125 ML ASDIR PRN 07/08 183 CKD IV 08/07 1829 Dextrose/Water 250 ML ASDIR PRN 07/08 1830 CKD IV / 1829 Epinephrine 4 MG ASDIR 07/08 1830 AC Dextrose/Water 246 ML IV 08/07 1829 Glucagon 1 MG ASDIR PRN 07/08 1830 AC IM 08/07 1829 Insulin Human Regular 100 UNIT ASDIR 07/08 183 CKD Sodium Chloride 99 ML IV 08/07 1829 Magnesium Sulfate 100 ML ASDIR PRN 07/08 1830 A C IV 08/07 1829 Magnesium Sulfate 50 ML ASDIR PRN 07/08 183 AC IV / 1829 Magnesium Sulfate/ 100 ML ASDIR PRN 07/08 1830 AC 07/09 Dextrose IV 08/07 1829 0430 Morphine Sulfate 4 MG Q2H PRN PRN 07/08 1830 D C IV 07/13 1829 Nitroglycerin/ 250 ML ASDIR 07/08 183 AC Dextrose IV 08/07 1829 Norepinephrine 250 ML TITRATE 07/08 183 AC Bitartrate IV 08/07 1829 Ondansetron HCl 4 MG Q6H PRN PRN 07/08 1830 AC IV / 1829 Oxycodone HCl 5 MG Q4H PRN [...] 1829 Sodium Chloride 250 ML Q24H 07/08 183 AC IV / 1829 Rocuronium [place] 0 .STK-MED ONE 07/08 1659 DC IV Sodium Chloride 100 ML .K-MED ONE 07/08 1654 DC IV Calcium Chloride 0 .[facility]-MED ONE 07/08 1644 DC IV Milrinone Lactate/ 100 ML .K-MED ONE 07/08 16 44 DC Dextrose IV Sodium Chloride 10 ML .K-MED ONE 07/08 1644 D C IV Vasopressin 0 .STK-MED ONE 07/08 1644 DC .ROUTE Vasopressin 0 .STK-MED ONE 07/08 1644 DC .ROUTE Isoflurane 0 .[facility]-MED ONE 07/08 1604 DC INH Sodium Chloride 100 ML .[facility]-MED ONE 07/08 1537 DC IV Albumin Human 50 ML .[facility] ONE 07/08 1525 DC IV Fentanyl Citrate 0 .[facility] ONE 07/08 1255 DC IV Cefazolin Sodium [...] ML ASDIR PRN 07/06 2230 DC IV 02/28 2229 Bisacodyl 10 MG DAILY PRN PRN 07/06 09 DC RECTAL 08/05 09 Polyethylene Glycol 17 GM DAILY 07/06 09 DC 0 07/06 PO 08/05 09 1130 Senna/Docusate Sodium 2 TAB DAILY 07/06 09 DC 07/06 PO 08/05 09 1130 Atorvastatin Calcium 20 MG BEDTIME 07/03 [...] 0925 Tamsulosin HCl 0.4 MG BEDTIME 07/02 2144 AC PO 08/01 2143 0020 Docusate Sodium 100 MG BID PRN PRN 07/02 2114 D C 07/06 PO 08/01 Labetalol HCl 10 [...] 2230 36.4 114 15 100/51 69 100 07/085 36.3 123 20 78/49 57 100 07/08 2154 36.2 111 20 86/47 61 100 07/08 2149 36.2 111 17 90/55 69 99 07/08 2129 36.0 115 22 108/53 77 99 07/08 2124 111/50 65 07/08 2104 115 20 114/47 100 07/08 2099 35.8 117 22 126/63 88 99 07/08 [...] CV assessment: regular rate and rhythm, no mur mur Respiratory: decreased breath sounds, no distres s Abdomen: soft, non-tender, normal bowel sounds, no distention, no guarding Genitourinary: urinary catheter, urine Upper extremity: UE assessment: normal temperature, no edema Lower extremity: LE assessment: normal temperature, no edema Neuro/SCREW SUPERVISOR: alert, oriented X 3, normal speech Psychiatry: [...] M w/ PMHx: HTN, HLD presented to [facility] on 06/28/22 for chest pa in and [...] and diffuse 50-60% dRCA. He transferred to [facility] for CABG. - CAD/NSTEMI. Per CTS. s/p [...] Signed by Liset Ennis MD on at [id number] RPT #:[id number] END OF REPORT 2022-07-09 07:05:00-00:00 [facility] ([facility]) Critical Care Progress Note REPORT#:[id number] REPORT STATUS: Signed DATE:07/09/22 TIME: 704 PATIENT: SHERRI ARCE UNIT #: [id number] ROOM/BED: [place] [id number] : 42 AGE: 81 SEX: M ATTEND: Radha Ward ADM AUTHOR: Edwardo Flannery MD * ALL edits or amendments must be made on the el [employer]/computer document * Subjective Chief complaint: CABG HPI: This is 81 years old male with medical history s ignificant for HTN and dyslipidemia who presented to [facility] Thursday06/28/22 with chest pain and found [...] Result Date Time Pulse Ox 98 07/09 034 O2 Delivery Nasal cannula 07/09 034 O2 Flow Rate 4 07/09 034 B/P 114/47 01/31 2105 Pulse 115 07/08 2104 Resp 20 07/08 [...] Meds + DC'd Last 24 Hrs Ipratropium [place] (ATROVENT) 500 MCG RTQ2H PRN PRN INH [...] Chloride (SODIUM CHLORIDE 0.9%) 500 ML Ipratropium [place] (ATROVENT) 500 MCG RTQ4H INH Acetaminophen (TYLENOL) [...] 0.9%) 250 ML Q2 4H IV Rocuronium [place] (ZEMURON) 0 .STK-MED ONE IV ( DC) [...] Midazolam HCl (VERSED) 0 .STK-MED ONE .ROUTE (D C) Papaverine HCl (PAPAVERINE HCL) 0 .STK-MED ONE [...] 0 .STK-MED ONE .ROUTE ( DC) Rocuronium [place] (ZEMURON) 0 .STK-MED ONE IV ( DC) Cefazolin Sodium (KEFZOL OR ANCEF) 2 GM PREOP PULMONARY NURSE PRACTITIONER IV (DC) Vancomycin HCl (VANCOMYCIN HCL) 1,250 [...] Sodium Chloride (SODIUM CHLORIDE 0.9%) 500 ML [place] EOP ONCALL IV (DC) Sodium Chloride (SODIUM CHLORIDE 0.9%) 500 ML [place] EOP ONCALL IV (DC) Sodium Chloride (SODIUM CHLORIDE) 5 ML ASDIR PRN IV (DC) Sodium Chloride (SODIUM CHLORIDE) 10 ML ASDIR KY N IV (DC) Sodium Chloride (SODIUM CHLORIDE [...] Lidocaine HCl (LIDOCAINE HCL/PF) 0.5 ML ASDIR [place] N I-DERMAL (CKD) Mannitol (Mannitol 20%) 12.5 GM ASDIR PRN IV Sodium Chloride (SODIUM CHLORIDE 0.9%) 2,000 ML ASDIR PRN IV Sodium Chloride (SODIUM CHLORIDE) 5 ML ASDIR PRN IV (DC) Sodium Chloride (SODIUM CHLORIDE) 10 ML ASDIR [place] N IV (DC) Sodium Chloride (SODIUM CHLORIDE [...] Tests 07/09 07/09 07/08 07/08 0333 0306 6849 0987 Blood Gas Puncture Site [place] Art Line Art Line Art Line O2 Saturation (90 - 100 %) 93.0 [...] - 16.9 G/DL) 6.5 L 7.0 L 7.7 L 8.7 L Marylu Test N/A N/A [...] PS PEEP (cmH2O) 5 Pressure Support (cmH2O) 10 07/086 1934 1843 1748 Blood Gas Puncture Site [place] Art Line O2 Saturation (90 - [...] %) 23 L 24 L 22 L 2 3 L ABG Hemoglobin (12.5 [...] (7.35 - 7.45) 7.401 7.355 7.262 *L 7.33 0 L ABG pCO2 (35.0 - 45 mmHg) 33.4 L 43.3 49.5 H 40 .0 ABG pO2 (80 - 100.0 mmHg) 327.7 *H 469.8 *H 458 .7 *H 487.7 *H ABG HCO3 (22.0 - [...] - 1.9 mmol/L) 6.6 *H 5.0 *H 01/31 07/08 1940 1934 1843 1748 Chemistry Sodium [...] - 32.0 %) 1.2 L 3.5 L Smyth % (Auto) (4.8 - 9.0 %) 6.6 3.9 L Eos % (Auto) (0.3 - 3.7 %) 0.0 L 1.4 Baso % (Auto) (0.0 - 2.0 %) 0.2 0.3 Neut # (Auto) (2.0 - 7.6 x10 3/uL) 22.60 H 34.7 2 H Lymph # (Auto) (1.0 - 3.8 x10 3/uL) 0.31 L 1.40 Smyth # (Auto) (0.1 - 0.8 x10 3/uL) [...] Plt Morphology Comment LARGE PLATELETS Laboratory Tests 07/09/22 0300: [Embedded Image Not Available] 07/08/22 1940: [Embedded Image Not Available] Microbiology: 07/07 2230 NASAL: MSSA Surveillance Screen - ORD 07/07 2230 NASAL: MRSA DNA Surveillance Screen - ORD 07/06 1350 NASAL: MSSA Surveillance Screen - COM P [...] Musculoskeletal: normal inspection, no muscle sp asm Neuro/SCREW SUPERVISOR: alert and oriented, CNII-XII grossly intact, no [...] Flannery MD on 08/28 at 1500 RPT #:[id number] END OF REPORT 2022-07-09 04:53:00-00:00 [id number] [address] PATIENT NAME: SHERRI ARCE ADMIT DATE: 07/02/22 ACCOUNT NO: [id number] ROOM NO: [id number] AGE: 81 REPORT TYPE: eELECTROCARDIOGRAM REPORT SEX: M ADMITTING PHYSICIAN:Radha Ward MD ATTENDING PHYSICIAN:Radha Ward MD Order: [id number] Test Reason : POD 1 CABG 5 [...] 0644 PATIENT NAME: SHERRI ARCE 2022-07-08 19:54:00-00:00 [id number] [place] [address] PATIENT NAME: SHERRI ARCE ADMIT DATE: 07/02/22 ACCOUNT NO: [id number] [place] [facility] [place] AGE: 81 REPORT TYPE: eELECTROCARDIOGRAM REPORT SEX: M ADMITTING PHYSICIAN:Radha Ward MD ATTENDING PHYSICIAN:Radha Ward MD Order: [id number] Test Reason : CABGX5 Test Date/Time Stamp: [...] NAME: SHERRI ARCE 2022-07-08 19:39:00-00:00 HC[facility]L [facility] ([facility]) Critical Care Consult Note REPORT#:[id number] REPORT STATUS: Signed DATE:07/08/22 TIME: 1938 PATIENT: SHERRI ARCE UNIT #: [id number] ROOM/BED: [place] [address] : 42 AGE: 81 SEX: M ATTEND: Radha Ward MD ADM AUTHOR: Wagner Viera MD * ALL edits or amendments must be made on the [employer]/computer document * History of Present Illness HPI Chief complaint: Chest pain HPI: This is 81 years old male with medical history s ignificant for HTN and dyslipidemia who presented to [facility] Thursday06/28/22 with chest pain and found [...] Discussion included: living will (none), power of employee benefits attorney (none), code status ( full code) at [facility] [facility] #:[id number] END OF REPORT 2022-07-08 19:10:00-00:00 [phone] [place] [address] PATIENT NAME: SHERRI ARCE ADMIT DATE: 07/02/22 ACCOUNT NO: [id number] ROOM NO: [id number] AGE: 81 REPORT TYPE: OPERATIVE REPORT SEX: [...] saphen ous vein). SURGEON: Lina Schwarz MD FIELD HORTICULTURAL SPECIALTY GROWER: Renny Rodríguez MD ANESTHESIOLOGIST: Dr. Adams ANESTHESIA: [...] IN DETAIL: Mr. Arce was identified in [facility] preoperative holding area and brought to the [...] patient was cooled to 34 degrees centigrade. Human Resources Services Specialist ssclamp was applied and the heart was arrested with 1.5 liters of antegrade cold blood cardioplegia. Cardioplegia was repeated at interval of 10 minutes all through the duration of crossclamp. We began by exploring the PDA. This was good quality artery measuring 2 mm in size. Arteriotomy was performe d with a [place] blade and extended with Reynoso scissors. A segment of previ ously harvested reverse saphenous vein was anastomosed in end-to -side manner using 7-0 Prolene suture. The vein graft to PDA was brought along the right side of the heart and sized. Aortotomy was performed on the right aspect of t he aorta using 4 mm punch. Proximal anastomosis of the PDA graft was then p erformed using running 6-0 Prolene suture. Next, a third margin was explored. This was a slightly disease artery measuring 1.75 mm in size. Arteriotomy was performed with a [place]avenworth blade and extended with Reynoso scissors. A [...] siz e. Arteriotomy was performed with a Leavenworth blade and extended with Reynoso scis sors. [...] size. Arterio gracie was performed with a [place]worth blade and extended with Reynoso scissors. A segment of p reviously harvested reverse saphenous vein was anastomosed in end-to -side manner using 7-0 Prolene suture. The vein graft to diagonal was brought along the left side of the heart and sized. Aortotomy was performed on the left aspec t of the aorta using 4 mm punch. Proximal anastomosis of the diagonal crystla t was then performed using running 6-0 [...] released. One ventricular wire was placed. A 28-Belarusian chest tube was placed in the mediastinum, [...] Date Transcribed: 07/08/2022 21:54:21 AC/SVR Receipt ID: [id number] Authenticated by Vinay Schwarz MD On 023 04:45:50 PM at 0445 PATIENT NAME: SHERRI ARCE 7 2022-07-08 19:00:00-00:00 HC[facility]L [facility] ([facility]) Brief Op Note REPORT#:[id number] REPORT STATUS: Signed DATE:07/08/22 TIME: 190 PATIENT: SHERRI ARCE UNIT #: [id number] ROOM/BED: [place] [address] : 42 AGE: 81 SEX: M ATTEND: Radha Ward ADM AUTHOR: Lina Schwarz MD * ALL edits or amendments must be made on the el [employer]/computer document * Op/Inv Proc Note - Brief Pre-procedure diagnosis: CAD ESRD Post-procedure diagnosis: same as pre procedure dx Procedures performed: CABG x 5 (MISTRY-LAD, SVG-Ladonna, SVG-OM1< SVG-OM3, S VG-PDA) ALAA EVDilip (RGSV) Primary Surgeon: Chong Coating Mixer Supervisor(s): Niall Seth Findings: LAD-2mm Complications: none Estimated blood loss in ml's: 100 cc Specimens removed/altered: RONALDO at 1904 RPT #:[id number] END OF REPORT 2022-07-08 12:01:00-00:00 HC[facility]L [facility] ([facility]) Nephrology Progress Note REPORT#:[id number] REPORT STATUS: Signed DATE:07/08/22 TIME: 1201 PATIENT: SHERRI ARCE UNIT #: [id number] ROOM/BED: [place] [address] : 42 AGE: 81 SEX: M ATTEND: Radha Ward ADM AUTHOR: Evelina Plaza MD * ALL edits or amendments must be made on the [employer]/computer document * Subjective Chief complaint: came to see Mr. Arce, but he was in [place]. Objective General VS/I O: Vital Signs: Date Time Temp Pulse Resp B/P B/P Pulse O2 O2 F low FiO2 Mean Ox Delivery Rate 02/ 1630 [...] 2230 97.5 114 15 100/51 69 100 07/085 97.3 123 20 78/49 57 100 07/08 [...] Plaza MD on 06/30 at 1857 RPT #:[id number] END OF REPORT 2022-07-08 11:45:00-00:[address] [facility] Hospitalist Progress Note REPORT#:[id number] REPORT STATUS: Signed DATE:07/08/22 TIME: 1145 PATIENT: SHERRI ARCE UNIT #: [id number] ROOM/BED: [place] [address] : 42 AGE: 81 SEX: M ATTEND: Radha Ward ADM AUTHOR: Radha Ward MD * ALL edits or amendments must be made on the [employer]/computer document * Subjective Chief complaint: Just left for CABG today HPI: 81 y/o man with PMHx of HTN, Dyslipidemia that presented to [facility] last Thursday06/28/22 with chest pain and found to have a NSTEMI and also acute renal failure. Underwent cardiac c ath yesterday and found to have severe CAD including left main disease. Transfer here f or CABG evaluation. He also underwent HD Thursday and Thursday of this week. HD catheter was place at [facility]. Currently not having any chest pain. Had chest pain with SOB when he presentted to the previous hospital. Objective General VS/I O: Vital Signs: Date Time Temp Pulse Resp B/P B/P Pulse O2 O2 F low FiO2 Mean Ox Delivery Rate 07/08 1105 109/57 74 07/08 1105 66 26 102/58 75 94 01/31 1104 68 22 91/54 68 94 07/08 [...] Heparin Sodium (HEPARIN SODIUM) 0 .STK-MED ONE .ROUTE (DC) Mannitol (Mannitol 20%) 500 ML .STK-MED [...] 0 .STK-MED ONE .ROUTE ( DC) Rocuronium [place] (ZEMURON) 0 .STK-MED ONE IV (DC) Cefazolin Sodium (KEFZOL OR ANCEF) 2 GM PREOP PULMONARY NURSE PRACTITIONER IV (CKD) Metoprolol Tartrate (LOPRESSOR) 6.25 MG [...] 200 MG PREOP ONCALL PO (C KD) Sodium Chloride (SODIUM CHLORIDE) 20 ML ASDIR IV Acetaminophen (TYLENOL EXTRA STRENGTH) 1,000 MG PREOP ONCALL PO (DC) Cefazolin Sodium (KEFZOL OR ANCEF) 2 GM PREOP PULMONARY NURSE PRACTITIONER IV (DC) Gabapentin (NEURONTIN) 200 MG PREOP [...] Sodium Chloride (SODIUM CHLORIDE 0.9%) 500 ML [place] EOP ONCALL IV Sodium Chloride (SODIUM CHLORIDE 0.9%) 500 ML [place] EOP ONCALL IV Sodium Chloride (SODIUM CHLORIDE) 5 ML ASDIR PRN IV Sodium Chloride (SODIUM CHLORIDE) 10 ML ASDIR [place] N IV Sodium Chloride (SODIUM CHLORIDE 0.9%) [...] Lidocaine HCl (LIDOCAINE HCL/PF) 0.5 ML ASDIR [place] N I-DERMAL (CKD) Mannitol (Mannitol 20%) 12.5 GM ASDIR PRN IV Sodium Chloride (SODIUM CHLORIDE 0.9%) 2,000 ML ASDIR PRN IV Sodium Chloride (SODIUM CHLORIDE) 5 ML ASDIR PRN IV Sodium Chloride (SODIUM CHLORIDE) 10 ML ASDIR [place] N IV Sodium Chloride (SODIUM CHLORIDE 0.9%) [...] no cyanosis, no edema Musculoskeletal: normal inspection Neuro/SCREW SUPERVISOR: alert, oriented X 3, normal speech, n [...] Coagulation INR (0.8 - 1.2) 1.2 PTT ([place]) (25.0 - 39.5 Seconds) 31.8 PT Patient/Control [...] (Auto) (14.0 - 32.0 %) 10.2 L Smyth % (Auto) (4.8 - 9.0 %) 8.6 Eos % (Auto) (0.3 - 3.7 %) 10.2 H Baso % (Auto) (0.0 - 2.0 %) 0.7 Neut # (Auto) (2.0 - 7.6 x10 3/uL) 9.37 H Lymph # (Auto) (1.0 - 3.8 x10 3/uL) 1.38 Smyth # (Auto) (0.1 - 0.8 x10 3/uL) [...] Discussion included: living will (none), power of employee benefits attorney (none), code status ( full code) Electronically Signed by Radha Ward MD on 3 at 1603 RPT #:[id number] END OF REPORT 2022-07-08 08:45:00-00:00 HCACL [facility] Cardiology Progress Note REPORT#:[id number] REPORT STATUS: Signed DATE:07/08/22 TIME: 0845 PATIENT: SHERRI ARCE UNIT #: [id number] ROOM/BED: [place] [address] : 42 AGE: 81 SEX: M ATTEND: Radha Ward ADM AUTHOR: Jyoti Browning REFORMATORY ATTENDANT * ALL edits or amendments must be made on the el [employer]/computer document * Subjective Chief complaint: surgery today Objective General VS/I O: Laboratory Tests 07/08/22 0530: [Embedded Image Not Available] 07/07/22 0321: [Embedded Image Not Available] Current Medications Sig/Earl Start time Last Medication Dose Route Stop Time Status Admin Fentanyl Citrate 0 .STK-MED ONE 07/08 1255 DC IV Midazolam HCl 0 .STK-MED ONE 07/08 1218 DC .ROUTE Papaverine HCl 0 .STK-MED ONE 07/08 1213 DC IV Albumin Human [...] 07/08 1127 DC IV Phenylephrine HCl 0 .STK-MED ONE 07/08 112 DC .ROUTE Sodium Bicarbonate 0 .STK-MED ONE 07/08 1127 DC IV Cefazolin Sodium 0 .STK-MED ONE 07/08 1112 DC .ROUTE Epinephrine HCl 250 ML .STK-MED ONE 07/08 938 DC IV Insulin Human Regular 100 ML .STK-MED ONE 07/08 938 DC IV Nitroglycerin/ 250 ML .STK-MED ONE 07/08 938 D C Dextrose IV Norepinephrine 250 ML .STK-MED ONE 07/08 938 D C Bitartrate IV Magnesium Sulfate 0 .STK-MED ONE 07/08 937 DC .ROUTE Protamine Sulfate 0 .STK-MED ONE 07/08 937 DC IV Ropivacaine 0 .STK-MED ONE 07/08 937 DC .ROUTE Aminocaproic Acid 0 .STK-MED ONE 07/08 929 DC IV Heparin Sodium 0 .STK-MED ONE 07/08 924 DC .ROUTE Dexamethasone Sodium 0 .STK-MED ONE 07/08 923 DC Phosphate .ROUTE Lidocaine HCl 0 .STK-MED ONE 07/08 923 DC .ROUTE Ondansetron HCl 0 .STK-MED ONE 07/08 923 DC .ROUTE Rocuronium [place] 0 .STK-MED ONE 07/08 923 DC IV Cefazolin Sodium 2 GM PREOP ONCALL 07/08 0500 C KD IV 07/08 2359 Metoprolol Tartrate 6.25 MG ONCE ONE 07/08 0500 CAN PO 07/08 0501 Vancomycin HCl 1,250 MG PREOP ONCALL 07/08 050 0 CKD Sodium Chloride 250 ML IV 07/08 2359 Verapamil HCl 16.6 MG .Q24H ONE 07/08 0500 CKD Heparin Sodium 1,660 UNIT IV 07/09 0459 (Porcine) Sodium Bicarbonate 0.7 ML Nitroglycerin/ 8.3 MG Dextrose Lactated Ringer's 949.5 ML Acetaminophen 1,000 MG PREOP ONCALL 07/07 2230 CKD 07/08 PO 08/06 2229 1117 Gabapentin 200 MG PREOP ONCALL 07/07 2230 CKD 07/08 PO 08/06 2359 1117 Sodium Chloride 20 ML ASDIR 07/07 2230 AC IV 08/06 2229 Acetaminophen 1,000 MG [...] ASDIR PRN 07/06 2229 AC IV 08/05 222 Sodium Chloride 10 ML ASDIR PRN 07/06 223 AC IV 08/05 222 Sodium Chloride 250 ML ASDIR PRN 07/06 223 AC IV 08/05 222 Bisacodyl 10 MG DAILY PRN PRN 07/06 0930 AC RECTAL 08/05 0929 Polyethylene Glycol 17 GM DAILY 07/06 0921 AC 0 07/06 PO 08/05 0920 1130 [...] 2045 87 27 110/59 79 93 07/07 2029 [...] extremity: LE assessment: normal temperature, no edema Neuro/SCREW SUPERVISOR: alert, oriented X 3, normal speech Psychiatry: [...] M w/ PMHx: HTN, HLD presented to [facility] on 06/28/22 for chest pa in and [...] and diffuse 50-60% dRCA. He transferred to [facility] for CABG. - CAD/NSTEMI. Per CTS. s/p [...] Signed by Jyoti Browning NP on 0 07/08/22 at 1350 Electronically Signed by Liset Ennis MD on at 0834 RPT #:[id number] END OF REPORT 2022-07-08 08:29:00-00:00 [phone] [place] [address] PATIENT NAME: SHERRI ARCE ADMIT DATE: 07/02/22 ACCOUNT NO: [id number] [place] [facility] AGE: 81 REPORT TYPE: CARDIAC CATHETERIZATION REPORT SEX: M ADMITTING PHYSICIAN:Radha Ward MD ATTENDING PHYSICIAN:Radha Ward MD PROCEDURE DATE: 07/08/2022 SPIROMETRY: FVC is 193% of predicted. FEV1 is 15 8% of predicted. Ratio is 55. Next, PFT showed obstructive impairment, mild C OPD. Dictated By: Valorie Garcia MD Date Dictated: 07/08/2022 08:29:47 Date Transcribed: 07/08/2022 08:43:59 /FARHANA Receipt ID: [id number] Authenticated by VALORIE GARCIA MD On 07/08/2022 03:21:03 PM Electronically Signed by Valorie Garcia MD on at 0321 PATIENT NAME: SHERRI ARCE 2022-07-07 17:37:00-00:00 [facility] ([facility]) Nephrology Progress Note REPORT#:[id number] REPORT STATUS: Signed DATE:07/07/22 TIME: 1736 PATIENT: SHERRI ARCE UNIT #: [id number] ROOM/BED: [place] [address] : 42 AGE: 81 SEX: M ATTEND: Radha Ward ADM AUTHOR: Evelina Plaza MD * ALL edits or amendments must be made on the [employer]/computer document * Subjective Chief complaint: Has no [...] Sodium (KEFZOL OR ANCEF) 2 GM PREOP PULMONARY NURSE PRACTITIONER IV (CKD) Gabapentin (NEURONTIN) 200 MG PREOP [...] Sodium Chloride (SODIUM CHLORIDE 0.9%) 500 ML [place] EOP ONCALL IV Sodium Chloride (SODIUM CHLORIDE 0.9%) 500 ML [place] EOP ONCALL IV Sodium Chloride (SODIUM CHLORIDE) 5 ML ASDIR PRN IV Sodium Chloride (SODIUM CHLORIDE) 10 ML ASDIR [place] N IV Sodium Chloride (SODIUM CHLORIDE 0.9%) [...] Lidocaine HCl (LIDOCAINE HCL/PF) 0.5 ML ASDIR [place] N I-DERMAL (CKD) Mannitol (Mannitol 20%) 12.5 GM ASDIR PRN IV Sodium Chloride (SODIUM CHLORIDE 0.9%) 2,000 ML ASDIR PRN IV Sodium Chloride (SODIUM CHLORIDE) 5 ML ASDIR PRN IV Sodium Chloride (SODIUM CHLORIDE) 10 ML ASDIR [place] N IV Sodium Chloride (SODIUM CHLORIDE 0.9%) [...] Coagulation INR (0.8 - 1.2) 1.2 PTT ([place]) (25.0 - 39.5 Seconds) 33.5 PT Patient/Control [...] (Auto) (14.0 - 32.0 %) 10.6 L Smyth % (Auto) (4.8 - 9.0 %) 9.5 H Eos % (Auto) (0.3 - 3.7 %) 11.7 H Baso % (Auto) (0.0 - 2.0 %) 0.8 Neut # (Auto) (2.0 - 7.6 x10 3/uL) 7.61 H Lymph # (Auto) (1.0 - 3.8 x10 3/uL) 1.23 Smyth # (Auto) (0.1 - 0.8 x10 3/uL) 1.10 H Eos # (Auto) (0.0 - 0.2 x10 3/uL) 1.35 H Baso # (Auto) (0.0 - 0.2 x10 3/uL) 0.09 Abs Immat Gran (auto) (0.00 - 0.03 x10 3/uL) 0 .20 H Add Manual Diff NO Immature Gran [...] Evelina Plaza MD on at 1739 RPT #:[id number] END OF REPORT 2022-07-07 11:03:00-00:00 HCACL [facility] Cardiology Progress Note REPORT#:[id number] REPORT STATUS: Signed DATE:07/07/22 TIME: 1103 PATIENT: SHERRI ARCE UNIT #: [id number] ROOM/BED: [place] [address] : 42 AGE: 81 SEX: M ATTEND: Radha Ward ADM AUTHOR: Jyoti Browning NP * ALL edits or amendments must be made on the el [employer]/computer document * Subjective Chief complaint: doing ok [...] Vancomycin HCl 1,250 MG PREOP ONCALL 07/07 050 0 CKD Sodium Chloride 250 ML IV 07/07 [...] Glycol 17 GM DAILY 07/06 0921 AC 0 07/06 PO 08/05 0920 1130 Senna/Docusate Sodium 2 TAB DAILY 07/06 0921 AC 07/06 PO 08/05 0920 1130 Atorvastatin Calcium 20 MG BEDTIME 07/03 2100 A C 07/06 PO 08/02 2052000 Ceftriaxone Sodium 1,000 MG Q24H 07/03 1600 AC 07/06 Sodium Chloride 10 ML IV 07/08 1559 1627 Heparin Sodium 5,000 UNIT Q8HR 07/03 1400 DC 0 07/06 SUBQ 08/02 1359 0615 Albumin Human 12.5 [...] 100 MG BID PRN PRN 07/02 2114 AC 07/06 PO 08/01 Labetalol HCl 10 MG [...] extremity: LE assessment: normal temperature, no edema Neuro/SCREW SUPERVISOR: alert, oriented X 3, normal speech Psychiatry: [...] M w/ PMHx: HTN, HLD presented to [facility] on 06/28/22 for chest pa in and [...] and diffuse 50-60% dRCA. He transferred to [facility] for CABG. - CAD/NSTEMI. Per CTS. 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 Waiting for CABG today HPI: 81 y/o man with PMHx of HTN, Dyslipidemia that presented to [facility] last Thursday06/28/22 with chest pain and found to have a NSTEMI and also acute renal failure. Underwent cardiac c ath yesterday and found to have severe CAD including left main disease. Transfer here f or CABG evaluation. He also underwent HD Thursday and Thursday of this week. HD catheter was place at [facility]. Currently not having any chest pain. Had [...] Sodium (KEFZOL OR ANCEF) 2 GM PREOP PULMONARY NURSE PRACTITIONER IV (CKD) Gabapentin (NEURONTIN) 200 MG PREOP [...] Sodium Chloride (SODIUM CHLORIDE 0.9%) 500 ML [place] EOP ONCALL IV Sodium Chloride (SODIUM CHLORIDE 0.9%) 500 ML [place] EOP ONCALL IV Sodium Chloride (SODIUM CHLORIDE) 5 ML ASDIR PRN IV Sodium Chloride (SODIUM CHLORIDE) 10 ML ASDIR [place] N IV Sodium Chloride (SODIUM CHLORIDE 0.9%) [...] Lidocaine HCl (LIDOCAINE HCL/PF) 0.5 ML ASDIR [place] N I-DERMAL (CKD) Mannitol (Mannitol 20%) 12.5 GM ASDIR PRN IV Sodium Chloride (SODIUM CHLORIDE 0.9%) 2,000 ML ASDIR PRN IV Sodium Chloride (SODIUM CHLORIDE) 5 ML ASDIR PRN IV Sodium Chloride (SODIUM CHLORIDE) 10 ML ASDIR [place] N IV Sodium Chloride (SODIUM CHLORIDE 0.9%) [...] no cyanosis, no edema Musculoskeletal: normal inspection Neuro/SCREW SUPERVISOR: alert, oriented X 3, normal speech, n [...] Coagulation INR (0.8 - 1.2) 1.2 PTT ([place]) (25.0 - 39.5 Seconds) 33.5 PT Patient/Control [...] (Auto) (14.0 - 32.0 %) 10.6 L Smyth % (Auto) (4.8 - 9.0 %) 9.5 H Eos % (Auto) (0.3 - 3.7 %) 11.7 H Baso % (Auto) (0.0 - 2.0 %) 0.8 Neut # (Auto) (2.0 - 7.6 x10 3/uL) 7.61 H Lymph # (Auto) (1.0 - 3.8 x10 3/uL) 1.23 Smyth # (Auto) (0.1 - 0.8 x10 3/uL) [...] Discussion included: living will (none), power of employee benefits attorney (none), code status ( full code) Electronically Signed by Radha Ward MD on 3 at 1543 [facility] #:[id number] END OF REPORT 2022-07-06 15:45:00-00:00 HC[facility]L [facility] ([facility] Nephrology Progress Note REPORT#:[id number] REPORT STATUS: Signed DATE:07/06/22 TIME: 1545 PATIENT: SHERRI ARCE UNIT #: [id number] ROOM/BED: [place] [address] : 42 AGE: 81 SEX: M ATTEND: Radha Ward ADM AUTHOR: Jackie Wan MD * ALL edits or amendments must be made on the [employer] document * Subjective Chief complaint: Has no [...] 2100 78 24 131/73 95 95 07/05 2000 97.8 07/05 1999 93 42 145/70 100 91 07/05 1900 89 33 129/60 87 94 07/05 1800 90 30 116/68 87 96 07/05 1700 79 28 104/60 77 97 07/05 1600 97.9 85 29 98/56 70 95 Room air 07/05 1600 85 29 98/56 72 95 24 hour I O ending [...] Sodium (KEFZOL OR ANCEF) 2 GM PREOP PULMONARY NURSE PRACTITIONER IV (CKD) Gabapentin (NEURONTIN) 200 MG PREOP [...] Lidocaine HCl (LIDOCAINE HCL/PF) 0.5 ML ASDIR KY N I-DERMAL (CKD) Mannitol (Mannitol 20%) 12.5 GM ASDIR PRN IV Sodium Chloride (SODIUM CHLORIDE 0.9%) 2,000 ML ASDIR PRN IV Sodium Chloride (SODIUM CHLORIDE) 5 ML ASDIR PRN IV Sodium Chloride (SODIUM CHLORIDE) 10 ML ASDIR [place] N IV Sodium Chloride (SODIUM CHLORIDE 0.9%) [...] no rash Results Findings/Data: Laboratory Tests 07/06 0458 Chemistry Sodium (134 - 147 mEq/L) [...] - 2.40 mg/dL) 1.75 L Laboratory Tests 07/068 Hematology WBC (4.5 - 11.0 x10 3/uL) [...] (Auto) (14.0 - 32.0 %) 13.2 L Smyth % (Auto) (4.8 - 9.0 %) 9.0 Eos % (Auto) (0.3 - 3.7 %) 12.7 H Baso % (Auto) (0.0 - 2.0 %) 0.8 Neut # (Auto) (2.0 - 7.6 x10 3/uL) 6.81 Lymph # (Auto) (1.0 - 3.8 x10 3/uL) 1.43 Smyth # (Auto) (0.1 - 0.8 x10 3/uL) [...] x10 3/uL) 0.0 0 Laboratory Tests 07/06 1350 Serology SARS-CoV-2 Ag [...] Wan MD on 07/08 at 1150 RPT #:[id number] END OF REPORT 2022-07-06 12:53:00-00:00 [facility]#:[id number] REPORT STATUS: Signed DATE:07/06/22 TIME: 1253 PATIENT: SHERRI ARCE UNIT #: [id number] ROOM/BED: [place] [address] : 42 AGE: 81 SEX: M ATTEND: Srinath Kaur MD ADM AUTHOR: Rosalind Toribio REFORMATORY ATTENDANT * ALL edits or amendments must be made on the el [employer]/computer document * Subjective Chief complaint: Chest Pain [...] Genitourinary: waters, oN hd Extremities: moves all Neuro/SCREW SUPERVISOR: alert, oriented X 3, normal speech, n o motor deficits Psychiatry: normal affect, normal mood Current Medications Medications: Active Meds + DC'd Last 24 Hrs Cefazolin Sodium (KEFZOL OR ANCEF) 2 GM PREOP PULMONARY NURSE PRACTITIONER IV (UNV) Metoprolol Tartrate (LOPRESSOR) 6.25 MG ONCE ONE PO (UNV) Vancomycin HCl (VANCOMYCIN HCL) 1,252.5 MG PREOP ONCALL IV (UNi) Sodium Chloride (SODIUM CHLORIDE 0.9%) 250 ML Verapamil HCl (ISOPTIN) 16.6 MG .Q24H ONE IV (U NV) Heparin Sodium (Porcine) (HEPARIN SODIUM) 1,660 UNIT [...] Lidocaine HCl (LIDOCAINE HCL/PF) 0.5 ML ASDIR [place] N I-DERMAL (CKD) Mannitol (Mannitol 20%) 12.5 GM ASDIR PRN IV Sodium Chloride (SODIUM CHLORIDE 0.9%) 2,000 ML ASDIR PRN IV Sodium Chloride (SODIUM CHLORIDE) 5 ML ASDIR PRN IV Sodium Chloride (SODIUM CHLORIDE) 10 ML ASDIR [place] N IV Sodium Chloride (SODIUM CHLORIDE 0.9%) [...] PRN PRN IV Results Findings/Data: Laboratory Tests 07/06 0458 Chemistry Sodium (134 - 147 mEq/L) [...] (Auto) (14.0 - 32.0 %) 13.2 L Smyth % (Auto) (4.8 - 9.0 %) 9.0 Eos % (Auto) (0.3 - 3.7 %) 12.7 H Baso % (Auto) (0.0 - 2.0 %) 0.8 Neut # (Auto) (2.0 - 7.6 x10 3/uL) 6.81 Lymph # (Auto) (1.0 - 3.8 x10 3/uL) 1.43 Smyth # (Auto) (0.1 - 0.8 x10 3/uL) 0.98 H Eos # (Auto) (0.0 - 0.2 x10 3/uL) 1.38 H Baso # (Auto) (0.0 - 0.2 x10 3/uL) 0.09 Abs Immat Gran (auto) (0.00 - 0.03 x10 3/uL) 0 .15 H Add Manual Diff NO Immature Gran [...] of coronary artery disease or o ther [place]. [facility]. [facility] was found to have a urinary [...] [facility]: cardiology, cardiovascular surgery, nephrology at 1258 at 1052 RPT #:[id number] END OF REPORT 2022-07-06 11:42:00-00:00 [facility] Hospitalist Progress Note REPORT#:[id number] REPORT STATUS: Signed DATE:07/06/22 TIME: 1142 PATIENT: SHERRI ARCE UNIT #: [id number] ROOM/BED: [place] [id number] : 42 AGE: 81 SEX: M ATTEND: Radha Ward ADM AUTHOR: Radha Ward MD * ALL edits or amendments must be made on the el [employer]/computer document * Subjective Chief complaint: No complaint. Plan to have dialysis toda y, waiting for CABG tomorrow, IV Lasix DC'd HPI: 81 y/o man with PMHx of HTN, Dyslipidemia that presented to [facility] last Thursday06/28/22 with chest pain and found to have a NSTEMI and also acute renal failure. Underwent cardiac c ath yesterday and found to have severe CAD including left main disease. Transfer here f or CABG evaluation. He also underwent HD Thursday and Thursday of this week. HD catheter was place at [facility]. Currently not having any chest pain. Had chest pain with SOB when he presentted to the previous hospital. Objective General VS/I O: Vital Signs: Date Time Temp Pulse Resp B/P B/P Pulse O2 O2 Flow FiO2 Mean Ox Delivery Rate 07/06 1500 [...] 2100 78 24 131/73 95 95 07/05 2000 97.8 07/05 1999 93 42 145/70 100 [...] Sodium (KEFZOL OR ANCEF) 2 GM PREOP PULMONARY NURSE PRACTITIONER IV (CKD) Gabapentin (NEURONTIN) 200 MG PREOP [...] Lidocaine HCl (LIDOCAINE HCL/PF) 0.5 ML ASDIR [place] N I-DERMAL (CKD) Mannitol (Mannitol 20%) 12.5 GM ASDIR PRN IV Sodium Chloride (SODIUM CHLORIDE 0.9%) 2,000 ML ASDIR PRN IV Sodium Chloride (SODIUM CHLORIDE) 5 ML ASDIR PRN IV Sodium Chloride (SODIUM CHLORIDE) 10 ML ASDIR [place] N IV Sodium Chloride (SODIUM CHLORIDE 0.9%) [...] no cyanosis, no edema Musculoskeletal: normal inspection Neuro/SCREW SUPERVISOR: alert, oriented X 3, normal speech, n [...] (Auto) (14.0 - 32.0 %) 13.2 L Smyth % (Auto) (4.8 - 9.0 %) 9.0 Eos % (Auto) (0.3 - 3.7 %) 12.7 H Baso % (Auto) (0.0 - 2.0 %) 0.8 Neut # (Auto) (2.0 - 7.6 x10 3/uL) 6.81 Lymph # (Auto) (1.0 - 3.8 x10 3/uL) 1.43 Smyth # (Auto) (0.1 - 0.8 x10 3/uL) [...] x10 3/uL) 0.0 0 Laboratory Tests 07/06 1350 Serology SARS-CoV-2 Ag [...] Discussion included: living will (none), power of employee benefits attorney (none), code status ( full code) Electronically Signed by Radha Ward MD on 3 at 1628 [facility] #:[id number] END OF REPORT 2022-07-06 10:52:00-00:[address] [facility] Cardiology Progress Note REPORT#:[id number] REPORT STATUS: Signed DATE:07/06/22 TIME: 1052 PATIENT: SHERRI ARCE UNIT #: [id number] ROOM/BED: [place] [address] : 42 AGE: 81 SEX: M ATTEND: Radha Ward ADM AUTHOR: Kasi Katz MD * ALL edits or amendments must be made on the [employer] document * Subjective Chief complaint: doing ok [...] Lidocaine HCl (LIDOCAINE HCL/PF) 0.5 ML ASDIR [place] N I-DERMAL (CKD) Mannitol (Mannitol 20%) 12.5 GM ASDIR PRN IV Sodium Chloride (SODIUM CHLORIDE 0.9%) 2,000 ML ASDIR PRN IV Sodium Chloride (SODIUM CHLORIDE) 5 ML ASDIR PRN IV Sodium Chloride (SODIUM CHLORIDE) 10 ML ASDIR [place] N IV Sodium Chloride (SODIUM CHLORIDE 0.9%) [...] extremity: LE assessment: normal temperature, no edema Neuro/SCREW SUPERVISOR: alert, oriented X 3, normal speech Psychiatry: [...] (Auto) (14.0 - 32.0 %) 13.2 L Smyth % (Auto) (4.8 - 9.0 %) 9.0 Eos % (Auto) (0.3 - 3.7 %) 12.7 H Baso % (Auto) (0.0 - 2.0 %) 0.8 Neut # (Auto) (2.0 - 7.6 x10 3/uL) 6.81 Lymph # (Auto) (1.0 - 3.8 x10 3/uL) 1.43 Smyth # (Auto) (0.1 - 0.8 x10 3/uL) [...] M w/ PMHx: HTN, HLD presented to [facility] on 06/28/22 for chest pain and sob [...] nd diffuse 50-60% dRCA. He transferred to [facility] for CABG. - CAD/NSTEMI. Per CTS. s/p [...] MD on 0 07/07/22 at 0809 RPT #:[id number] END OF REPORT 2022-07-05 14:48:00-00:00 [facility] ([facility]) Clinical Note REPORT#:[id number] REPORT STATUS: Signed DATE:07/05/22 TIME: 8 PATIENT: SHERRI ARCE UNIT #: [id number] ROOM/BED: [place] [address] : 42 AGE: 81 SEX: M ATTEND: Radha Ward ADM AUTHOR: Rosalind Toribio * ALL edits or amendments must be made on the [employer] document * Clinical Note Note: STS Adult Cardiac Surgery Isolated CAB Risk of Mortality: 8.282% Renal Failure: NA Permanent Stroke: 1.769% Prolonged Ventilation: 22.463% DSW Infection: 0.290% Reoperation: 3.281% Morbidity or Mortality: 29.115% Short Length of Stay: 12.095% Long Length of Stay: 17.210% at 1653 at 0835 RPT #:[id number] END OF REPORT 2022-07-05 12:44:00-00:[address] [facility] Cardiothoracic Surgery Prog REPORT#:[id number] REPORT STATUS: Signed DATE:07/05/22 TIME: 1244 PATIENT: SHERRI ARCE UNIT #: [id number] ROOM/BED: [place] [address] : 42 AGE: 81 SEX: M ATTEND: Radha Ward ADM AUTHOR: Rosalind Toribio * ALL edits or amendments must be made on the [employer] document * Subjective Chief complaint: Chest Pain [...] soft, non-tender, no distention Extremities: moves all Neuro/SCREW SUPERVISOR: alert, oriented X 3, normal speech, n [...] Lidocaine HCl (LIDOCAINE HCL/PF) 0.5 ML ASDIR [place] N I-DERMAL (CKD) Mannitol (Mannitol 20%) 12.5 GM ASDIR PRN IV Sodium Chloride (SODIUM CHLORIDE 0.9%) 2,000 ML ASDIR PRN IV Sodium Chloride (SODIUM CHLORIDE) 5 ML ASDIR PRN IV Sodium Chloride (SODIUM CHLORIDE) 10 ML ASDIR [place] N IV Sodium Chloride (SODIUM CHLORIDE 0.9%) [...] PRN PRN IV Results Findings/Data: Laboratory Tests 07/055 Chemistry Sodium [...] (Auto) (14.0 - 32.0 %) 12.0 L Smyth % (Auto) (4.8 - 9.0 %) 10.9 H Eos % (Auto) (0.3 - 3.7 %) 13.1 H Baso % (Auto) (0.0 - 2.0 %) 0.6 Neut # (Auto) (2.0 - 7.6 x10 3/uL) 6.89 Lymph # (Auto) (1.0 - 3.8 x10 3/uL) 1.34 Smyth # (Auto) (0.1 - 0.8 x10 3/uL) [...] x10 3/uL) 0.0 0 Diagnosis, Assessment Plan Hospital course to date: This is a 81-year-old gentleman who presented to an outside hospital with complaints of chest pains while walking at his home on Thursday. He denies any previous history of coronary artery disease or o ther LA. [facility] He was found to have a urinary [...] surgery, nephrology at 1248 at 0835 RPT #:[id number] END OF REPORT 2022-07-05 09:53[facility] REPORT#:[id number] REPORT STATUS: Signed DATE:07/05/22 TIME: 952 PATIENT: SHERRI ARCE UNIT #: [id number] ROOM/BED: [place] [address] : 42 AGE: 81 SEX: M ATTEND: Radha Ward D ADM AUTHOR: Kasi Katz MD * ALL edits or amendments must be made on the [employer]/computer document * Subjective Chief complaint: doing ok [...] Lidocaine HCl (LIDOCAINE HCL/PF) 0.5 ML ASDIR [place] N I-DERMAL (CKD) Mannitol (Mannitol 20%) 12.5 GM ASDIR PRN IV Sodium Chloride (SODIUM CHLORIDE 0.9%) 2,000 ML ASDIR PRN IV Sodium Chloride (SODIUM CHLORIDE) 5 ML ASDIR PRN IV Sodium Chloride (SODIUM CHLORIDE) 10 ML ASDIR [place] N IV Sodium Chloride (SODIUM CHLORIDE 0.9%) [...] extremity: LE assessment: normal temperature, no edema Neuro/SCREW SUPERVISOR: alert, oriented X 3, normal speech Psychiatry: normal affect Results Findings/Data: Laboratory Tests 07/05 0445 Chemistry [...] (Auto) (14.0 - 32.0 %) 12.0 L Smyth % (Auto) (4.8 - 9.0 %) 10.9 H Eos % (Auto) (0.3 - 3.7 %) 13.1 H Baso % (Auto) (0.0 - 2.0 %) 0.6 Neut # (Auto) (2.0 - 7.6 x10 3/uL) 6.89 Lymph # (Auto) (1.0 - 3.8 x10 3/uL) 1.34 Smyth # (Auto) (0.1 - 0.8 x10 3/uL) [...] M w/ PMHx: HTN, HLD presented to [facility] on 06/28/22 for chest pain and sob [...] nd diffuse 50-60% dRCA. He transferred to [facility] for CABG. - CAD/NSTEMI. Per CTS. s/p [...] MD on 0 07/06/22 at 0936 RPT #:[id number] END OF REPORT 2022-07-05 09:47:00-00:00 [facility] ([facility]) Nephrology Progress Note REPORT#:[id number] REPORT STATUS: Signed DATE:07/05/22 TIME: 946 PATIENT: SHERRI ARCE UNIT #: [id number] ROOM/BED: [place] [address] : 42 AGE: 81 SEX: M ATTEND: Radha Ward ADM AUTHOR: Jackie Wan MD * ALL edits or amendments must be made on the [employer]/computer document * Subjective Chief complaint: Has no [...] Lidocaine HCl (LIDOCAINE HCL/PF) 0.5 ML ASDIR [place] N I-DERMAL (CKD) Mannitol (Mannitol 20%) 12.5 GM ASDIR PRN IV Sodium Chloride (SODIUM CHLORIDE 0.9%) 2,000 ML ASDIR PRN IV Sodium Chloride (SODIUM CHLORIDE) 5 ML ASDIR PRN IV Sodium Chloride (SODIUM CHLORIDE) 10 ML ASDIR [place] N IV Sodium Chloride (SODIUM CHLORIDE 0.9%) [...] no rash Results Findings/Data: Laboratory Tests 07/05 0445 Chemistry [...] (1.80 - 2.40 mg/dL) 2.07 Laboratory Tests 01/28 0445 Hematology WBC (4.5 - 11.0 x10 [...] (Auto) (14.0 - 32.0 %) 12.0 L Smyth % (Auto) (4.8 - 9.0 %) 10.9 H Eos % (Auto) (0.3 - 3.7 %) 13.1 H Baso % (Auto) (0.0 - 2.0 %) 0.6 Neut # (Auto) (2.0 - 7.6 x10 3/uL) 6.89 Lymph # (Auto) (1.0 - 3.8 x10 3/uL) 1.34 Smyth # (Auto) (0.1 - 0.8 x10 3/uL) [...] Wan MD on 07/06 at 0634 RPT #:[id number] END OF REPORT 2022-07-05 09:13:00-00:[address] [facility] Hospitalist Progress Note REPORT#:[id number] REPORT STATUS: Signed DATE:07/05/22 TIME: 912 PATIENT: SHERRI ARCE UNIT #: [id number] ROOM/BED: [place] [address] : 42 AGE: 81 SEX: M ATTEND: Radha Ward ADM AUTHOR: Radha Ward MD * ALL edits or amendments must be made on the [employer]/computer document * Subjective Chief complaint: No complaint. Having dialysis now. Waiting for C ABG on 07/07/2022 HPI: 81 y/o man with PMHx of HTN, Dyslipidemia that presented to [facility] last Thursday06/28/22 with chest pain and found to have a NSTEMI and also acute renal failure. Underwent cardiac c ath yesterday and found to have severe CAD including left main disease. Transfer here f or CABG evaluation. He also underwent HD Thursday and Thursday of this week. HD catheter was place at [facility]. Currently not having any chest pain. Had chest pain with SOB when he presentted to the previous hospital. Objective General VS/I O: Vital Signs: Date Time Temp Pulse Resp B/P B/P Pulse O2 O2 F low FiO2 Mean Ox Delivery Rate 07/05 1600 97.9 85 29 98/56 70 95 Room air 07/05 1600 85 29 98/56 72 95 01/28 1500 90 29 93/52 69 94 07/05 [...] Lidocaine HCl (LIDOCAINE HCL/PF) 0.5 ML ASDIR [place] N I-DERMAL (CKD) Mannitol (Mannitol 20%) 12.5 GM ASDIR PRN IV Sodium Chloride (SODIUM CHLORIDE 0.9%) 2,000 ML ASDIR PRN IV Sodium Chloride (SODIUM CHLORIDE) 5 ML ASDIR PRN IV Sodium Chloride (SODIUM CHLORIDE) 10 ML ASDIR [place] N IV Sodium Chloride (SODIUM CHLORIDE 0.9%) [...] no cyanosis, no edema Musculoskeletal: normal inspection Neuro/SCREW SUPERVISOR: alert, oriented X 3, normal speech, n [...] (Auto) (14.0 - 32.0 %) 12.0 L Smyth % (Auto) (4.8 - 9.0 %) 10.9 H Eos % (Auto) (0.3 - 3.7 %) 13.1 H Baso % (Auto) (0.0 - 2.0 %) 0.6 Neut # (Auto) (2.0 - 7.6 x10 3/uL) 6.89 Lymph # (Auto) (1.0 - 3.8 x10 3/uL) 1.34 Smyth # (Auto) (0.1 - 0.8 x10 3/uL) [...] Discussion included: living will (none), power of employee benefits attorney (none), code status ( full code) Electronically Signed by Radha Ward MD on 3 at 1721 RPT #:[id number] END OF REPORT 2022-07-04 15:27:00-00:[address] [facility] Hospitalist Progress Note REPORT#:[id number] REPORT STATUS: Signed DATE:07/04/22 TIME: 1527 PATIENT: SHERRI ARCE UNIT #: [id number] ROOM/BED: [place] [address] : 42 AGE: 81 SEX: M ATTEND: Maryam Crawford DO ADM AUTHOR: Los Crawford DO * ALL edits or amendments must be made on the [employer]/computer document * Subjective Chief complaint: Patient seen and examined during dialysis No new complaints HPI: 81 y/o man with PMHx of HTN, Dyslipidemia that presented to [facility] last Thursday06/28/22 with chest pain and found to have a NSTEMI and also acute renal failure. Underwent cardiac c ath yesterday and found to have severe CAD including left main disease. Transfer here f or CABG evaluation. He also underwent HD Thursday and Thursday of this week. HD catheter was place at [facility]. Currently not having any chest pain. Had [...] no cyanosis, no edema Musculoskeletal: normal inspection Neuro/SCREW SUPERVISOR: alert, oriented X 3, normal speech, n [...] for CABG on Friday 07/07 Quality: Gen Med Crit Care VTE Prophylaxis VTE prophylaxis initiated: yes Current Medications Current medication review: I attest that the foregoing medication list in t he medical record is true, accurate, and complete to the best of my knowled ge. Advanced Care Plan 65 or Older Discussed with: patient Discussion included: living will (none), power of employee benefits attorney (none), code status ( full code) at 1531 RPT #:[id number] END OF REPORT 2022-07-04 11:08:00-00:00 [facility] Nephrology Progress Note REPORT#:[id number] REPORT STATUS: Signed DATE:07/04/22 TIME: 1108 PATIENT: SHERRI ARCE UNIT #: [id number] ROOM/BED: [place] [address] : 42 AGE: 81 SEX: M ATTEND: Maryam Crawford DO ADM AUTHOR: Evelina Plaza MD * ALL edits or amendments must be made on the [employer] document * See Addendum Subjective Chief complaint: [...] Lidocaine HCl (LIDOCAINE HCL/PF) 0.5 ML ASDIR [place] N I-DERMAL (CKD) Mannitol (Mannitol 20%) 12.5 GM ASDIR PRN IV Sodium Chloride (SODIUM CHLORIDE 0.9%) 2,000 ML ASDIR PRN IV Sodium Chloride (SODIUM CHLORIDE) 5 ML ASDIR PRN IV Sodium Chloride (SODIUM CHLORIDE) 10 ML ASDIR [place] N IV Sodium Chloride (SODIUM CHLORIDE 0.9%) [...] (Auto) (14.0 - 32.0 %) 12.1 L Smyth % (Auto) (4.8 - 9.0 %) 10.8 H Eos % (Auto) (0.3 - 3.7 %) 12.8 H Baso % (Auto) (0.0 - 2.0 %) 0.7 Neut # (Auto) (2.0 - 7.6 x10 3/uL) 5.98 Lymph # (Auto) (1.0 - 3.8 x10 3/uL) 1.17 Smyth # (Auto) (0.1 - 0.8 x10 3/uL) [...] data: Recent Impressions: ULTRASOUND - DUP VEIN VARUN 07/03 1206 Report Impression - Status: SIGNED [...] in the distal calf. Impression By: [email or web address] Tam Norwood ULTRASOUND - US RETROPERITONEAL COM 07/03 [...] - Noreen Caceres ULTRASOUND - DUP EXTRACRANIAL VARUN 07/03 1208 Report Impression - Status: SIGNED [...] diet. Discussed with patient and cardiothoracic surgeo nRaoul Consultants: cardiology, cardiovascular surgery, nephrology Electronically Signed by Evelina Plaza MD on at 1112 Addendum 1: 07/04/22 1129 by Evelina Plaza MD Echo with EF 30-34% and grade I diastolic start lasix 20 mg BID. continue strict IO replaced K and Mg. Electronically Signed by Evelina Plaza MD on at 1130 RPT #:[id number] END OF REPORT 2022-07-04 09:10:00-00:00 [facility] Cardiology Progress Note REPORT#:[id number] REPORT STATUS: Signed DATE:07/04/22 TIME: 909 PATIENT: SHERRI ARCE UNIT #: [id number] ROOM/BED: [place] [address] : 42 AGE: 81 SEX: M ATTEND: Maryam Crawford DO ADM AUTHOR: Jyoti Browning REFORMATORY ATTENDANT * ALL edits or amendments must be made on the [employer]/computer document * Jyoti Browning 07/04/22 0910: Subjective [...] 10 ML ASDIR PRN 07/03 1200 AC 07/03 IV 08/02 1159 1340 Sodium Chloride 250 ML ASDIR PRN 07/03 1200 AC IV 08/02 1159 Aspirin 81 MG DAILY 07/03 09 AC 07/04 PO 08/02 0859 0957 Metoprolol Tartrate 12.5 MG BID 07/03 09 AC 0 07/04 PO 08/02 0859 0957 Mupirocin 1 APPLIC BID 07/03 09 AC 07/04 NASAL 07/07 2100 0958 Tamsulosin HCl 0.4 MG BEDTIME 07/02 [...] extremity: LE assessment: normal temperature, no edema Neuro/SCREW SUPERVISOR: alert, oriented X 3, normal speech Psychiatry: normal affect Diagnosis, Assessment Plan Problem List/A P: 1. HTN (hypertension) 2. CLAUDETTE (acute kidney injury) 3. CAD (coronary artery disease) 4. Dyslipidemia 5. BPH (benign prostatic hyperplasia) Free Text DxA P Notes Free Text DxA P Notes: Mr. Arce is a pleasant 81 y/o M w/ PMHx: HTN, HLD presented to [facility] on 06/28/22 for chest pain and sob [...] nd diffuse 50-60% dRCA. He transferred to [facility] for CABG. - CAD/NSTEMI. Per CTS. s/p [...] plan of care w/pt. Liset Ennis 07/04/22 9783: Attestations Physician Attestation Agree w/findings plan: I [...] Signed by Liset Ennis MD on at 4036 RPT #:[id number] END OF REPORT 2022-07-04 08:08:00-00:00 [facility] ([facility]) Cardiothoracic Surgery Prog REPORT#:[id number] REPORT STATUS: Signed DATE:07/04/22 TIME: 807 PATIENT: SHERRI ARCE UNIT #: [id number] ROOM/BED: [place] [address] : 42 AGE: 81 SEX: M ATTEND: Edkamran Tam Mir ADM AUTHOR: Rosalind Toribio * ALL edits or amendments must be made on the [employer]/computer document * Subjective Chief complaint: Chest Pain Pre CABG eval Review of Systems Constitutional: Denies: chills, fever, malaise. Allergy/Immun: Denies: allergic reaction. Respiratory: Denies: SOB. Cardiovascular: Denies: chest pain, palpitations. GI: Denies: abdominal pain, nausea, vomiting. Heme: Denies: bleeding. 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 X 3, normal speech, n [...] Lidocaine HCl (LIDOCAINE HCL/PF) 0.5 ML ASDIR [place] N I-DERMAL (CKD) Mannitol (Mannitol 20%) 12.5 GM ASDIR PRN IV Sodium Chloride (SODIUM CHLORIDE 0.9%) 2,000 ML ASDIR PRN IV Sodium Chloride (SODIUM CHLORIDE) 5 ML ASDIR PRN IV Sodium Chloride (SODIUM CHLORIDE) 10 ML ASDIR [place] N IV Sodium Chloride (SODIUM CHLORIDE 0.9%) [...] (Auto) (14.0 - 32.0 %) 12.1 L Smyth % (Auto) (4.8 - 9.0 %) 10.8 H Eos % (Auto) (0.3 - 3.7 %) 12.8 H Baso % (Auto) (0.0 - 2.0 %) 0.7 Neut # (Auto) (2.0 - 7.6 x10 3/uL) 5.98 Lymph # (Auto) (1.0 - 3.8 x10 3/uL) 1.17 Smyth # (Auto) (0.1 - 0.8 x10 3/uL) [...] data: Recent Impressions: ULTRASOUND - DUP VEIN VARUN 07/03 1207 Report Impression - Status: SIGNED [...] the distal calf. Impression By: [email or web address] - Tam Canas ULTRASOUND - US RETROPERITONEAL COM 07/03 120 Report Impression - Status: SIGNED Entered: 07/03/2022 1552 IMPRESSION: 1. Bilateral severe hydronephrosis. 2. Severe thickening of the urinary bladder wall with a Waters catheter in place. 3. 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 4. Cholelithiasis Impression By: [email or web address] Noreen Chawla ULTRASOUND - DUP EXTRACRANIAL VARUN 07/03 1208 Report Impression - Status: SIGNED [...] of coronary artery disease or o ther LA. [facility] He was found to have a urinary [...] surgery, nephrology at 1130 at 0838 RPT #:[id number] END OF REPORT 2022-07-03 16:43:00-00:00 [id number] [place] [address] PATIENT NAME: SHERRI ARCE ADMIT DATE: 07/02/22 ACCOUNT NO: [id number] ROOM NO: [facility] AGE: 81 REPORT TYPE: eECHOCARDIOGRAM REPORT SEX: M ADMITTING PHYSICIAN:Los Crawford DO ATTENDING PHYSICIAN:Los Crawford DO *[place] [address] Transthoracic Echocardiogram Patient: Sherri Arce Study Date: 07/03/2022 BP: 159 / 78 Location: [facility] URN: [id number] [id number] : 1940 Age: 81 Height: 72 in / 183 cm Gender: M Weight: 190 .3 lb / 86.5 kg BMI/BSA: 25.8 kg/m 2 / 2.11 m 2 *Ordering Physician: * Gianna Hoover *Interpreting Physician: * Liset Ennis MD *Biochemical Engineer: * Desire Tsang [facility] Indications: PRE CABG. Study data: Transthoracic echocardiogram. Proced ure: Transthoracic echocardiography was performed. Images were obta ined using a [employer] cardiac ultrasound machine. Image quality was fair. The study was technically limited due to poor acoustic window availability . Complete 2D, complete spectral Doppler, and color Doppler. Location: [facility] Patient status: Inpatient. Patient room number: 3312. [...] 1 diastolic dysfunction). PATIENT NAME: SHERRI ARCE Right ventricle: The cavity size is normal. [...] trileaflet. There is no evidence of stenosis. T here is no regurgitation. Mitral valve: The valve [...] ratio 0.88 --------- Pulmonic valve Value Ref [place] v, ED 0.72 m/sec --------- Aortic root [...] 1643 PATIENT NAME: SHERRI ARCE 2022-07-03 15:53:00-00:00 [facility] ([facility]) Hospitalist Progress Note REPORT#:[id number] REPORT STATUS: Signed DATE:07/03/22 TIME: 1553 PATIENT: SHERRI ARCE UNIT #: [id number] ROOM/BED: 3312-1 : 42 AGE: 81 SEX: M ATTEND: Maryam Crawford DO ADM AUTHOR: Los Crawford DO * ALL edits or amendments must be made on the [employer]/computer document * Subjective Chief complaint: Patient seen and examined during dialysis No new complaints HPI: 81 y/o man with PMHx of HTN, Dyslipidemia that presented to [facility] last Thursday06/28/22 with chest pain and found to have a NSTEMI and also acute renal failure. Underwent cardiac c ath yesterday and found to have severe CAD including left main disease. Transfer here f or CABG evaluation. He also underwent HD Thursday and Thursday of this week. HD catheter was place at [facility]. Currently not having any chest pain. Had [...] no cyanosis, no edema Musculoskeletal: normal inspection Neuro/SCREW SUPERVISOR: alert, oriented X 3, normal speech, n [...] work-up by cardiothoracic surg sunita Quality: Gen [facility] Crit Care VTE Prophylaxis VTE prophylaxis initiated: yes Current Medications Current medication review: I attest that the foregoing medication list in t medical record is true, accurate, and complete to the best of my knowled ge. Advanced Care Plan 65 or Older Discussed with: patient Discussion included: living will (none), power of employee benefits attorney (none), code status ( full code) at 1600 RPT #:[id number] END OF REPORT 2022-07-03 15:23:00-00:00 [facility] ([facility]) Cardiology Consultation REPORT#:[id number] REPORT STATUS: Signed DATE:07/03/22 TIME: 152 PATIENT: SHERRI ARCE UNIT #: [id number] ROOM/BED: [place] [address] : 42 AGE: 81 SEX: M ATTEND: Maryam Crawford DO ADM AUTHOR: Carolyn Penny REFORMATORY ATTENDANT * ALL edits or amendments must be made on the [employer]/computer document * Carolyn Penny 07/03/22 1523: History of Present Illness HPI Requesting Clinician: Dr. Mcarthur Reason for consult: CAD NSTEMI Chief complaint: "blockage" PCP: PCP: Los Crawford DO HPI: Mr. Arce is a pleasant 81 y/o M w/ PMHx: HTN, HLD , BPH presented to [facility] on 06/28/22 for c hest pain and [...] and diffuse 50-60% dRCA. He transferred to [facility] for CABG. Card iology is consulted for CAD. Patient denied chest discomf ort, no sob, no palpitation. Telemetry shows nsr w/ BBB note. His left femoral temporary dialysis ca theter was inserted and underwent HD in [place]. Furthermor e, on admission he found severe [...] Lidocaine HCl (LIDOCAINE HCL/PF) 0.5 ML ASDIR [place] N I-DERMAL (CKD) Mannitol (Mannitol 20%) 12.5 GM ASDIR PRN IV Sodium Chloride (SODIUM CHLORIDE 0.9%) 2,000 ML ASDIR PRN IV Sodium Chloride (SODIUM CHLORIDE) 5 ML ASDIR PRN IV Sodium Chloride (SODIUM CHLORIDE) 10 ML ASDIR [place] N IV Sodium Chloride (SODIUM CHLORIDE 0.9%) [...] extremity: LE assessment: normal temperature, no edema Neuro/SCREW SUPERVISOR: alert, oriented X 3, normal speech Psychiatry: [...] (Auto) (14.0 - 32.0 %) 9.4 L Smyth % (Auto) (4.8 - 9.0 %) 10.0 H Eos % (Auto) (0.3 - 3.7 %) 11.7 H Baso % (Auto) (0.0 - 2.0 %) 0.6 Neut # (Auto) (2.0 - 7.6 x10 3/uL) 6.93 Lymph # (Auto) (1.0 - 3.8 x10 3/uL) 0.97 L Smyth # (Auto) (0.1 - 0.8 x10 3/uL) [...] pH (5.0 - 7.0) 7.0 Ur Specific [place] (1.005 - 1.030) 1.009 Urine Protein (NEGATIVE) [...] RADIOLOGY - XR CHEST 1 V 07/02 Report Impression - Status: SIGNED Entered: 07/03/2022 0308 IMPRESSION: 1. Nonspecific bibasilar opacities may represent atelectasis, edema, and/or pneumonia. 2. Tiny bilateral pleural effusions. Impression By: [email or web address] - Jermaine Pope M.D . ULTRASOUND - DUP VEIN VARUN 07/03 1207 Report Impression - Status: SIGNED [...] the distal calf. Impression By: [email or web address] - Tam Canas. ULTRASOUND - US RETROPERITONEAL COM 07/03 1208 [...] - Noreen Caceres ULTRASOUND - DUP EXTRACRANIAL VARUN 07/03 1208 Report Impression - Status: SIGNED [...] l umen. Impression By: [email or web address] - Brett Berry, M.D. CAT SCAN - CT CHEST W/O CONTRAST 07/03 1227 Report Impression - Status: SIGNED Entered: 07/03/2022 1313 IMPRESSION: Small bilateral pleural effusions with bibasilar atelectasis. Impression By: Kourtney - Ranjan Boo M.D. Results: labs reviewed, [...] M w/ PMHx: HTN, HLD [facility] [facility] on 06/28/22 for chest pain and sob [...] nd diffuse 50-60% dRCA. He transferred to [facility] for CABG. Cardiology is consulted for CAD. Patient denied chest discomfort, no sob, no palpitation. Telemetry shows nsr w/ BBB note. His left femoral temporary dialysis cathet er was inserted and underwent HD in [place]. Furthermore, on admi ssion he found severe [...] Liset Ennis MD on at 1834 RPT #:[id number] END OF REPORT 2022-07-03 11:09:00-00:00 [facility] RE[facility]#:[id number] REPORT STATUS: Signed DATE:07/03/22 TIME: 110 PATIENT: SHERRI ARCE UNIT #: [id number] ROOM/BED: [place] [address] : 42 AGE: 81 SEX: M ATTEND: Srinath Kaur MD ADM AUTHOR: Gianna Hoover * ALL edits or amendments must be made on the Travtar/computer document * Gianna Hoover 07/03/22 1109: History of Present Illness HPI Chief complaint: Chest Pain HPI: This is a 81-year-old gentleman who presented to an outside hospital with complaints of chest pains while walking at his home on Thursday. He denies any previous history of coronary artery disease or o ther LA. [facility] He was found to have a urinary [...] Extremities: dry Musculoskeletal: full range of motion Neuro/SCREW SUPERVISOR: alert, oriented X 3 Skin: dry, intact [...] (Auto) (14.0 - 32.0 %) 9.4 L Smyth % (Auto) (4.8 - 9.0 %) 10.0 H Eos % (Auto) (0.3 - 3.7 %) 11.7 H Baso % (Auto) (0.0 - 2.0 %) 0.6 Neut # (Auto) (2.0 - 7.6 x10 3/uL) 6.93 Lymph # (Auto) (1.0 - 3.8 x10 3/uL) 0.97 L Smyth # (Auto) (0.1 - 0.8 x10 3/uL) [...] pH (5.0 - 7.0) 7.0 Ur Specific [place] (1.005 - 1.030) 1.009 Urine Protein (NEGATIVE) [...] of coronary artery disease or o ther LA. [facility]. He was found to have a urinary [...] Discussion included: living will (none), power of employee benefits attorney (none), code status ( full code) [...] 0 07/03/22 at 1355 at 0953 RPT #:[id number] END OF REPORT 2022-07-03 08:42:00-00:00 [facility] Nephrology Consultation Note REPORT#:[id number] REPORT STATUS: Signed DATE:07/03/22 TIME: 08 PATIENT: SHERRI ARCE UNIT #: [id number] ROOM/BED: [place] [address] : 42 AGE: 81 SEX: M ATTEND: Maryam Crawford DO ADM AUTHOR: Evelina Plaza MD * ALL edits or amendments must be made on the Travtar/computer document * History of Present Illness Requesting clinician: Dr. Mcarthur Reason for consult: CLAUDETTE Chief complaint: Chest pain or shortness of breath PCP: PCP: Los Crawford DO HPI: This is a 81-year-old male with past medical his tory of hypertension and hyperlipidemia who was [facility] for shortness of breath and [...] artery. The patient was transferred to [facility] CABG [facility]. The patient seen and [...] low FiO2 Mean Ox Delivery Rate 07/03 0702 [...] (Auto) (14.0 - 32.0 %) 9.4 L Smyth % (Auto) (4.8 - 9.0 %) 10.0 H Eos % (Auto) (0.3 - 3.7 %) 11.7 H Baso % (Auto) (0.0 - 2.0 %) 0.6 Neut # (Auto) (2.0 - 7.6 x10 3/uL) 6.93 Lymph # (Auto) (1.0 - 3.8 x10 3/uL) 0.97 L Smyth # (Auto) (0.1 - 0.8 x10 3/uL) [...] Report Impression - Status: SIGNED Entered: 07/03/2022 3095 IMPRESSION: 1. Nonspecific bibasilar opacities may represent [...] Evelina Plaza MD on at 1050 RPT #:[id number] END OF REPORT 2022-07-02 19:45:00-00:00 [facility] ([facility]) Hospitalist History Physical REPORT#:[id number] REPORT STATUS: Signed DATE:07/02/22 TIME: 1944 PATIENT: SHERRI ARCE UNIT #: [id number] ROOM/BED: [place] [address] : 42 AGE: 81 SEX: M ATTEND: Maryam Crawford DO ADM AUTHOR: Sarbjit Mcarthur MD * ALL edits or amendments must be made on the Travtar/computer document * History of Present Illness HPI Chief complaint: Patient transfer here from [facility] with CAD in need of CABG PCP: PCP: Los Crawford DO HPI: 81 y/o man with PMHx of HTN, Dyslipidemia that presented to [facility] last Thursday06/28/22 with chest pain and found to have a NSTEMI and also acute renal failure. Underwent cardiac c ath yesterday and found to have severe CAD including left main disease. Transfer here f or CABG evaluation. He also underwent HD Thursday and Thursday of this week. HD catheter [facility] place at [facility]. Currently not having any chest pain. Had [...] no cyanosis, no edema Musculoskeletal: normal inspection Neuro/SCREW SUPERVISOR: alert, oriented X 3, normal speech, n [...] Discussion included: living will (none), power of employee benefits attorney (none), code status ( full code) at 0[facility] #:[id number] END OF REPORT
[2022-12-16 15:56] LABS: Specific Gravity 1.023 (1.005-1.030); Urine Bacteria 20-50 /HPF (<20); Urine Bilirubin NEGATIVE (Negative); Urine Blood 1+ (Negative); Urine Clarity Extremely Turbid (Clear); Urine Color Dark-Brown (Yellow); Urine Glucose NEGATIVE (Negative); Urine Protein 2+ (Negative); Urine Urobilinogen Normal (Normal); Urine WBC Clump Many /HPF (None Seen)
--- NOTE | 2022-12-16 16:10 | EDPHYS ---
Physician Documentation [facility] Name: Rio Strauss Age: 81 yrs Sex: Male : 1940 Arrival Date: 12/16/2022 Time: 13:20 Bed 10 Private MD: ED Physician Mario Alberto Toussaint HPI: 12/16 13:52 Patient is a 75-year-old end-stage renal who is here for decreased urine output. jr11 Patient gets dialyzed Thursday, is here because he had his catheter removed 3 days ago and has not had any urine output. Denies any pain whatsoever. Patient otherwise states that before he had his catheter removed, he had a place since July. Patient states that he would empty the catheter once a day but it was very minimal urine. Denies any fevers chills denies shortness of breath no abdominal pain otherwise at baseline. He got dialyzed this morning.. Historical: - Allergies: 13:47 No Known Allergies; ap3 - PMHx: 13:47 Dialysis; Hyperlipidemia; Hypertension; kidney disease; Myocardial infarction; ap3 - Immunization history:: Client reports receiving the 2nd dose of the Covid vaccine. - Social history:: Smoking status: Patient denies any tobacco usage or history of. ROS: 13:52 All other systems are negative. jr11 Exam: 13:52 Constitutional: This is a well developed, well nourished patient who is awake, alert, jr11 and in no acute distress. Head/Face: Normocephalic, atraumatic. Eyes: Extra-ocular motions intact. Lids and lashes normal. Conjunctiva and sclera are non-icteric and not injected. Cornea within normal limits. Periorbital areas with no swelling, redness, or edema. Chest/axilla: R chest wall catheter c/d/i Cardiovascular: Regular rate and rhythm with a normal S1 and S2. No gallops, murmurs, or rubs. Normal PMI, no JVD. No pulse deficits. Respiratory: Lungs have equal breath sounds bilaterally, clear to auscultation and percussion. No rales, rhonchi or wheezes noted. No increased work of breathing, no retractions or nasal flaring. Abdomen/GI: Soft, non-tender, with normal bowel sounds. No distension or tympany. No guarding or rebound. No evidence of tenderness throughout. Neuro: Awake and alert, GCS 15, oriented to person, place, time, and situation. No gross motor or sensory deficits. Vital Signs: 13:45 BP 98 / 60; Pulse 78; Resp 17; Temp 97.9; Pulse Ox 96% ; Weight 81.65 kg; Height 5 ft. ap3 10 in. ; 16:32 BP 120 / 66; Pulse 64; Resp 16; Pulse Ox 100% on R/A; cm10 13:45 Body Mass Index 25.83 (81.65 kg, 177.8 cm) ap3 MDM: 13:52 Differential Diagnosis Patient with concern for urinary retention, will do bladder jr11 scan, if there is over 300 cc of fluid, will place catheter otherwise would recommend follow-up urology.. Data reviewed: vital signs, nurses notes. 14:05 Patient medically screened. jr11 16:06 ED course: Patient with many bacteria in the urine, will treat, no concern for sepsis jr11 at this time, patient well-appearing. Patient to follow-up urology.. 12/16 14:19 Order name: UAM; Complete Time: 16:04 jr11 12/16 14:19 Order name: Urine Culture jr11 12/16 13:48 Order name: Bladder Scanner; Complete Time: 14:19 ap3 12/16 14:19 Order name: Waters; Complete Time: 14:45 jr11 Administered Medications: 16:32 Drug: Cephalexin PO 500 mg Route: PO; cm10 16:32 Follow up: Response: No adverse reaction cm10 Disposition Summary: 12/16/22 16:09 Discharge Ordered Location: Home jr11 Condition: Stable jr11 Diagnosis - UTI/ Urinary tract infection, site not specified jr11 Followup: jr11 - With: Marcello Rodriguez MD - When: 2 - 3 days - Reason: If you dont have urologist Discharge Instructions: - Discharge Summary Sheet jr11 - Urinary Tract Infection, Adult jr11 Forms: - Medication Reconciliation Form jr11 - Thank You Letter jr11 - Antibiotic Education jr11 - Prescription Opioid Use jr11 - Patient Portal Instructions.htm jr11 Prescriptions: - cefuroxime axetil 250 mg Oral tablet - take 1 tablet by ORAL route every 12 hours for 14 days; 28 tablet; Refills: 0, jr11 Product Selection Permitted Signatures: Dispatcher [employer] EDMS Prokisch, Carmen, RN RN ap3 Mario Alberto Toussaint MD MD jr11 Petra Georges RN RN cm10
--- NOTE | 2022-12-16 16:10 | ER ---
Nurse's Notes [facility] Name: Rio Strauss Age: 81 yrs Sex: Male : 1940 Arrival Date: 12/16/2022 Time: 13:20 Bed 10 Private MD: Diagnosis: UTI/ Urinary tract infection, site not specified Presentation: 12/16 13:45 Chief complaint: Patient states: he had a catheter removed Thursday, and is requesting ap3 a new one as he hasn't urinated since 12/13/2022. Coronavirus screen: At this time, the client does not indicate any symptoms associated with coronavirus-19. Ebola Screen: No symptoms or risks identified at this time. Initial Sepsis Screen: Does the patient meet any 2 criteria? No. Patient's initial sepsis screen is negative. Does the patient have a suspected source of infection? No. Patient's initial sepsis screen is negative. Risk Assessment: Do you want to hurt yourself or someone else? Patient reports no desire to harm self or others. Onset of symptoms was December 13, 2022. 13:45 Method Of Arrival: Ambulatory ap3 13:45 Acuity: SHI 3 ap3 Triage Assessment: 13:47 General: Appears in no apparent distress. Behavior is calm, cooperative. Pain: Denies ap3 pain. Neuro: Level of Consciousness is awake, alert, obeys commands, Oriented to person, place, time, situation. Cardiovascular: Dialysis shunt: in the right arm. Respiratory: Airway is patent Respiratory effort is even, unlabored, Respiratory pattern is regular, symmetrical. : Reports inability to void. Historical: - Allergies: 13:47 No Known Allergies; ap3 - PMHx: 13:47 Dialysis; Hyperlipidemia; Hypertension; kidney disease; Myocardial infarction; ap3 - Immunization history:: Client reports receiving the 2nd dose of the Covid vaccine. - Social history:: Smoking status: Patient denies any tobacco usage or history of. Screenin:48 [facility] ED Fall Risk Assessment (Adult) History of falling in the last 3 months, ap3 including since admission No falls in past 3 months (0 pts). Abuse screen: Denies threats or abuse. Nutritional screening: No deficits noted. Tuberculosis screening: No symptoms or risk factors identified. Assessment: 14:57 General: Appears in no apparent distress. comfortable, Behavior is calm, cooperative. cm10 Neuro: No deficits noted. Level of Consciousness is awake, alert, Oriented to person, place, time, situation. Cardiovascular: No deficits noted. Capillary refill < 3 seconds. Respiratory: No deficits noted. Airway is patent Respiratory effort is even, unlabored, Respiratory pattern is regular, symmetrical. 14:59 : Reports inability to void. cm10 Vital Signs: 13:45 BP 98 / 60; Pulse 78; Resp 17; Temp 97.9; Pulse Ox 96% ; Weight 81.65 kg; Height 5 ft. ap3 10 in. ; 16:32 BP 120 / 66; Pulse 64; Resp 16; Pulse Ox 100% on R/A; cm10 13:45 Body Mass Index 25.83 (81.65 kg, 177.8 cm) ap3 ED Course: 13:23 Patient arrived in ED. im 13:39 Mario Alberto Toussaint MD is Attending Physician. jr11 13:47 Triage completed. ap3 13:48 Arm band placed on left wrist. ap3 14:13 Petra Georges, RN is Primary Nurse. cm10 14:19 Bladder scan completed. 657mL. Dr Toussaint aware. cm10 14:58 Waters cath inserted, using sterile technique, 16 Fr., by ED staff, balloon inflated, to cm10 gravity drainage, urine specimen collected. 14:59 No provider procedures requiring assistance completed. cm10 16:08 Marcello Rodriguez MD is Referral Physician. jr11 16:33 Patient has correct armband on for positive identification. Call light in reach. cm10 Provided Education on: Pt educated on the use of Watres leg bag and the importance of following up with urology to have bag removed. . 16:34 Patient did not have IV access during this emergency room visit. cm10 Administered Medications: 16:32 Drug: Cephalexin PO 500 mg Route: PO; cm10 16:32 Follow up: Response: No adverse reaction cm10 Medication: 16:34 VIS not applicable for this client. cm10 Output: 16:32 Urine: 675ml (Waters); Total: 675ml. cm10 Outcome: 16:09 Discharge ordered by . jr11 16:34 Discharged to home ambulatory. cm10 16:34 Condition: good 16:34 Discharge instructions given to patient, Instructed on discharge instructions, follow up and referral plans. medication usage, Demonstrated understanding of instructions, follow-up care, medications, Prescriptions given X 1. 16:34 Patient left the ED. cm10 Signatures: Carmen Hui RN RN ap3 Mario Alberto Toussaint MD MD jr11 Yadi Qureshi Clarissa, RN RN cm10
[2022-12-16] MEDS ORDERED: CEPHALEXIN 250 MG CAP ONE (16:17)
[2022-12-16 18:28] VITALS: TEMP 97.9
[2022-12-16 18:29] VITALS: BP 120/66; O2SAT 100
== END 2022-12-16 16:34 | disposition home or self-care (01) ==
LOC: ER 13:20
DX: N39.0 Urinary tract infection, site not specified (principal); I12.0 Hypertensive chronic kidney disease with stage 5 chronic kidney disease or end stage renal disease; N18.6 End stage renal disease; Z99.2 Dependence on renal dialysis
CPT/HCPCS: 51702; 81001; 87077; 87086; 87088; 87186; 99284

== ENCOUNTER 2023-05-19 10:18 | Observation (INO) | payer OTHER ==
--- OUTSIDE RECORDS SUMMARY | 2023-05-19 10:30 | XMS REPORT | Continuity of Care Document ---
Author Name Unknown Address [address] [facility] [address] [place] [address] [facility] Address [address] 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 Role Phone KATHRYN MARIN Primary Care Physician Unavaila Kathryn Christiansen Attending Clinician Unavailable JACQUE SHERIDAN Attending Clinician Unavailable Doctor Unassigned, [place] Attending Clinician U navailable ELIZABETH FULLER Attending Clinician Unav ailable ELIZABETH FULLER Attending Clinician Unav ailable MIRZA NASSAR Attending Clinician Unavailable Jacque Sheridan MD Attending Clinician [phone] Juan F Marley CRNA Attending Clinician [phone] Adilson Roth MD Attending Clinician [phone] ADILSON ROTH Attending Clinician Unavaila ble CHEYANNE_F Attending Clinician Unavailable Srinath Kaur Attending Clinician Unavailable Santana-Mbayo_A_AH Attending Clinician Unavailable MIRZA NASSAR Admitting Clinician Unavailable CHRETIEN_F Admitting Clinician Unavailable Jesus Larson Admitting Clinician Unavailable Santana-Mbayo_A_AH Admitting Clinician Unavailable Payers Payer Name Policy Type Policy Number Effective Date Expirati on Date Source [employer] [place]IC[place] REPLAC[place]/ADVANT AGE - HMO) [id number] [employer] [place] ([place]IC[place] REPLACEMENT/ADVANT AGE - HMO) [id number] 2019 00:00:00 Problems Condition Name Condition Details Condition Category Status Onset Date Resolution Date Last Treatment Date Treating Clinician Comments Source Coronary artery disease involving [place] coronary artery of [place] heart without angina pectoris Coronary artery disease involving [place] coronary artery of [place] heart without angina pectoris Disease Active 09-01 00:00: 00 [facility] Atrial fibrillati on, unspecifie d type Atrial fibrillati on, unspecifie d type Disease Active 09-01 00:00: 00 [facility] Chronic heart failure with preserved ejection fraction Chronic heart failure with preserved ejection fraction Disease Active 09-01 00:00: 00 [facility] Hyperlipid emia, unspecifie d hyperlipid emia type Hyperlipid emia, unspecifie d hyperlipid emia type Disease Active 09-01 00:00: 00 [facility] Primary hypertensi on Primary hypertensi on Disease Active 09-01 00:00: 00 [facility] ESRD (end stage renal disease) ESRD (end stage renal disease) Disease Active 09-01 00:00: 00 [facility] Allergies, Adverse Reactions, Alerts Allergy Name Allergy Type Status Severity Reaction(s) Onset Date Inactive Date Treating Clinician Comments Source No Known Allergie s DA Active U 07-02 00:00: 00 [facility] NO KNOWN ALLERGIE S Drug Class Active [facility] Social History Social Habit Start Date Stop Date Quantity Comments Source History of tobacco use Cigarette Smoker [facility] Exposure to SARS-CoV-2 (event) 2022-10-19 00:00:00 2022-10-29 09:28:00 Not sure [facility] History of Social function 2022-10-09 00:00:00 2022-10-09 00:00:00 [facility] Tobacco use and exposure 2022-09-01 00:00:00 2022-09-01 00:00:00 Smokeless tobacco non-user [facility] Sex Assigned At 1940 00:00:00 1940 00:00:00 [facility] Smoking Status Start Date Stop Date Source Ex-smoker 2022-09-01 00:00:00 2022-09-01 00:00:00 [facility] Medications Ordered Medication Name Filled Medication Name Start Date Stop Date Current Medication? Ordering Clinician Indication Dosage Frequency Signature (SIG) Comments Components Source midodrine 10 mg tablet 12-02 15:58: 48 12-02 00:00 :00 No 10mg Take 1 tablet by mouth in the morning and 1 tablet at noon and 1 tablet in the evening. [facility] midodrine 10 mg tablet 12-02 00:00: 00 Yes [id number] 15mg Take 1.5 tablets by mouth in the morning and 1.5 tablets at noon and 1.5 tablets in the evening. [facility] midodrine 10 mg tablet 12-02 00:00: 00 Yes [id number] 15mg Take 1.5 tablets by mouth in the morning and 1.5 tablets at noon and 1.5 tablets in the evening. [facility] midodrine 10 mg tablet 12-02 00:00: 00 Yes [id number] 15mg Take 1.5 tablets by mouth in the morning and 1.5 tablets at noon and 1.5 tablets in the evening. [facility] midodrine 10 mg tablet 12-02 00:00: 00 Yes [id number] 15mg Take 1.5 tablets by mouth in the morning and 1.5 tablets at noon and 1.5 tablets in the evening. [facility] midodrine 10 mg tablet 12-02 00:00: 00 Yes [id number] 15mg Take 1.5 tablets by mouth in the morning and 1.5 tablets at noon and 1.5 tablets in the evening. [facility] midodrine 10 mg tablet 12-02 00:00: 00 Yes [id number] 15mg Take 1.5 tablets by mouth in the morning and 1.5 tablets at noon and 1.5 tablets in the evening. [facility] midodrine 10 mg tablet 3-0 6-27 00:00: 00 Yes [id number] 15mg Take 1.5 tablets by mouth in the morning and 1.5 tablets at noon and 1.5 tablets in the evening. [facility] midodrine 10 mg tablet 3-0 6-27 00:00: 00 Yes [id number] 15mg Take 1.5 tablets by mouth in the morning and 1.5 tablets at noon and 1.5 tablets in the evening. [facility] acetaminoph en 325 mg tablet 3-0 5-18 13:44: 00 Yes Take by mouth every 6 (six) hours as needed. [facility] atorvastati n 40 mg tablet 3-0 5-18 13:44: 00 Yes 40mg Take 1 tablet by mouth every evening. [facility] clopidogreL 75 mg tablet 3-0 5-18 13:44: 00 Yes 75mg Take 1 tablet by mouth in the morning. [facility] midodrine 10 mg tablet 3-0 5-18 13:44: 00 Yes 10mg Take 1 tablet by mouth in the morning and 1 tablet at noon and 1 tablet in the evening. [facility] cyanocobala min, vitamin B-12, (VITAMIN B12 ORAL) 3-0 5-18 13:44: 00 Yes Take by mouth. [facility] acetaminoph en 325 mg tablet 3-0 5-18 13:44: 00 Yes Take by mouth every 6 (six) hours as needed. [facility] atorvastati n 40 mg tablet 3-0 5-18 13:44: 00 Yes 40mg Take 1 tablet by mouth every evening. [facility] clopidogreL 75 mg tablet 3-0 5-18 13:44: 00 Yes 75mg Take 1 tablet by mouth in the morning. [facility] midodrine 10 mg tablet 2023-0 5-18 13:44: 00 Yes 10mg Take 1 tablet by mouth in the morning and 1 tablet at noon and 1 tablet in the evening. [facility] cyanocobala min, vitamin B-12, (VITAMIN B12 ORAL) 2023-0 5-18 13:44: 00 Yes Take by mouth. [facility] acetaminoph en 325 mg tablet 2023-0 5-18 13:44: 00 Yes Take by mouth every 6 (six) hours as needed. [facility] atorvastati n 40 mg tablet 2023-0 5-18 13:44: 00 Yes 40mg Take 1 tablet by mouth every evening. [facility] clopidogreL 75 mg tablet 2023-0 5-18 13:44: 00 Yes 75mg Take 1 tablet by mouth in the morning. [facility] midodrine 10 mg tablet 2023-0 5-18 13:44: 00 Yes 10mg Take 1 tablet by mouth in the morning and 1 tablet at noon and 1 tablet in the evening. [facility] cyanocobala min, vitamin B-12, (VITAMIN B12 ORAL) 2023-0 5-18 13:44: 00 Yes Take by mouth. [facility] acetaminoph en 325 mg tablet 2023-0 5-18 13:44: 00 Yes Take by mouth every 6 (six) hours as needed. [facility] atorvastati n 40 mg tablet 2023-0 5-18 13:44: 00 Yes 40mg Take 1 tablet by mouth every evening. [facility] clopidogreL 75 mg tablet 2023-0 5-18 13:44: 00 Yes 75mg Take 1 tablet by mouth in the morning. [facility] midodrine 10 mg tablet 2023-0 5-18 13:44: 00 Yes 10mg Take 1 tablet by mouth in the morning and 1 tablet at noon and 1 tablet in the evening. [facility] cyanocobala min, vitamin B-12, (VITAMIN B12 ORAL) 2023-0 5-18 13:44: 00 Yes Take by mouth. [facility] acetaminoph en 325 mg tablet 2023-0 5-18 13:44: 00 Yes Take by mouth every 6 (six) hours as needed. [facility] atorvastati n 40 mg tablet 2023-0 5-18 13:44: 00 Yes 40mg Take 1 tablet by mouth every evening. [facility] clopidogreL 75 mg tablet 2022-0 5-18 13:44: 00 Yes 75mg Take 1 tablet by mouth in the morning. [facility] midodrine 10 mg tablet 2022-0 -18 13:44: 00 Yes 10mg Take 1 tablet by mouth in the morning and 1 tablet at noon and 1 tablet in the evening. [facility] cyanocobala min, vitamin B-12, (VITAMIN B12 ORAL) 2022-0 -18 13:44: 00 Yes Take by mouth. [facility] acetaminoph en 325 mg tablet 2022-0 -18 13:44: 00 Yes Take by mouth every 6 (six) hours as needed. [facility] atorvastati n 40 mg tablet 2022-0 -18 13:44: 00 Yes 40mg Take 1 tablet by mouth every evening. [facility] clopidogreL 75 mg tablet 2022-0 -18 13:44: 00 Yes 75mg Take 1 tablet by mouth in the morning. [facility] cyanocobala min, vitamin B-12, (VITAMIN B12 ORAL) 2022-0 -18 13:44: 00 Yes Take by mouth. [facility] acetaminoph en 325 mg tablet 2022-0 -18 13:44: 00 Yes Take by mouth every 6 (six) hours as needed. [facility] atorvastati n 40 mg tablet 2022-0 -18 13:44: 00 Yes 40mg Take 1 tablet by mouth every evening. [facility] clopidogreL 75 mg tablet 3-0 5-18 13:44: 00 Yes 75mg Take 1 tablet by mouth in the morning. [facility] cyanocobala min, vitamin B-12, (VITAMIN B12 ORAL) 2022-0 -18 13:44: 00 Yes Take by mouth. [facility] atorvastati n 40 mg tablet 3-0 5-18 13:44: 00 Yes 40mg Take 1 tablet by mouth every evening. [facility] clopidogreL 75 mg tablet 3-0 5-18 13:44: 00 Yes 75mg Take 1 tablet by mouth in the morning. [facility] cyanocobala min, vitamin B-12, (VITAMIN B12 ORAL) 3-0 -18 13:44: 00 Yes Take by mouth. [facility] atorvastati n 40 mg tablet 2023-0 5-18 13:44: 00 Yes 40mg Take 1 tablet by mouth every evening. [facility] clopidogreL 75 mg tablet 3-0 5-18 13:44: 00 Yes 75mg Take 1 tablet by mouth in the morning. [facility] cyanocobala min, vitamin B-12, (VITAMIN B12 ORAL) 3-0 -18 13:44: 00 Yes Take by mouth. [facility] atorvastati n 40 mg tablet 3-0 5-18 13:44: 00 Yes 40mg Take 1 tablet by mouth every evening. [facility] clopidogreL 75 mg tablet 3-0 5-18 13:44: 00 Yes 75mg Take 1 tablet by mouth in the morning. [facility] cyanocobala min, vitamin B-12, (VITAMIN B12 ORAL) 3-0 -18 13:44: 00 Yes Take by mouth. [facility] atorvastati n 40 mg tablet 3-0 -18 13:44: 00 Yes 40mg Take 1 tablet by mouth every evening. [facility] clopidogreL 75 mg tablet 3-0 5-18 13:44: 00 Yes 75mg Take 1 tablet by mouth in the morning. [facility] cyanocobala min, vitamin B-12, (VITAMIN B12 ORAL) 3-0 -18 13:44: 00 Yes Take by mouth. [facility] atorvastati n 40 mg tablet 3-0 5-18 13:44: 00 Yes 40mg Take 1 tablet by mouth every evening. [facility] clopidogreL 75 mg tablet 3-0 5-18 13:44: 00 Yes 75mg Take 1 tablet by mouth in the morning. [facility] cyanocobala min, vitamin B-12, (VITAMIN B12 ORAL) 3-0 5-18 13:44: 00 Yes Take by mouth. [facility] atorvastati n 40 mg tablet 2022-0 -18 13:44: 00 Yes 40mg Take 1 tablet by mouth every evening. [facility] clopidogreL 75 mg tablet 2022-0 -18 13:44: 00 Yes 75mg Take 1 tablet by mouth in the morning. [facility] cyanocobala min, vitamin B-12, (VITAMIN B12 ORAL) 0 -18 13:44: 00 Yes Take by mouth. [facility] atorvastati n 40 mg tablet 2022-0 -18 13:44: 00 Yes 40mg Take 1 tablet by mouth every evening. [facility] clopidogreL 75 mg tablet 2022-0 -18 13:44: 00 Yes 75mg Take 1 tablet by mouth in the morning. [facility] cyanocobala min, vitamin B-12, (VITAMIN B12 ORAL) 2022-0 -18 13:44: 00 Yes Take by mouth. [facility] atorvastati n 40 mg tablet 2022-0 -18 13:44: 00 Yes 40mg Take 1 tablet by mouth every evening. [facility] clopidogreL 75 mg tablet 2022-0 -18 13:44: 00 Yes 75mg Take 1 tablet by mouth in the morning. [facility] cyanocobala min, vitamin B-12, (VITAMIN B12 ORAL) 2022-0 18 13:44: 00 Yes Take by mouth. [facility] lactated ringers IV infusion 1,000 mL 10-09 14:30: 00 Yes 1000mL at 100 mL/hr, 1,000 mL, IV Infusion, CONTINUOUS , Starting on Yvette 10/09/22 at 0930, Until Discontinu ed, Routine, PACU [facility] lactated ringers IV infusion 1,000 mL 10-09 14:30: 00 10-09 17:43 :01 No 1000mL at 100 mL/hr, 1,000 mL, IV Infusion, CONTINUOUS , Starting on Yvette 10/09/22 at 0930, Until Yvette 10/09/22 at 1243, Routine, PACU [facility] traMADoL (ULTRAM) tablet 50 mg 10-09 14:29: 46 Yes 50mg 50 mg, Oral, PRN, 1 dose, Starting on Yvette 10/09/22 at 0929, Until Discontinu ed, Routine, Pain (scale 4-6), DSU Recovery [facility] acetaminoph en (TYLENOL) tablet 650 mg 10-09 14:29: 46 Yes 650mg 650 mg, Oral, PRN, 1 dose, Starting on Yvetet 10/09/22 at 0929, Until Discontinu ed, Routine, Pain (scale 1-3), DSU Recovery [facility] traMADoL (ULTRAM) tablet 50 mg 10-09 14:29: 46 10-09 17:43 :01 No 50mg 50 mg, Oral, PRN, 1 dose, Starting on Yvette 10/09/22 at 0929, Until Yvette 10/09/22 at 1243, Routine, Pain (scale 4-6), DSU Recovery [facility] acetaminoph en (TYLENOL) tablet 650 mg 10-09 14:29: 46 10-09 17:43 :01 No 650mg 650 mg, Oral, PRN, 1 dose, Starting on Yvette 10/09/22 at 0929, Until Yvette 10/09/22 at 1243, Routine, Pain (scale 1-3), DSU Recovery [facility] HYDROmorphO ne (DILAUDID) injection 0.2 mg 10-09 14:27: 27 Yes .2mg 0.2 mg, Slow IV Push, Q5MIN PRN, 10 doses, Starting on Yvette 10/09/22 at 0927, Until Discontinu ed, Routine, Pain (scale 7-10), PACU
Us e approved by (Faculty): PACU USE -ANESTHESI A SERVICE-HY DROMORPHON E INJECTIONS [facility] FENTanyl PF (SUBLIMAZE (PF)) injection 25 mcg 10-09 14:27: 27 Yes 25ug 25 mcg, Slow IV Push, Q5MIN PRN, 4 doses, Starting on Yvette 10/09/22 at 0927, Until Discontinu ed, Routine, Pain (scale 4-6), PACU [facility] ondansetron (ZOFRAN (PF)) injection 4 mg 10-09 14:27: 27 Yes 4mg 4 mg, Slow IV Push, PRN, 1 dose, Starting on Yvette 10/09/22 at 0927, Until Discontinu ed, Routine, Nausea and Vomiting (N/V), PACU [facility] HYDROmorphO ne (DILAUDID) injection 0.2 mg 10-09 14:27: 10-09 17:43 :01 No .2mg 0.2 mg, Slow IV Push, Q5MIN PRN, 10 doses, Starting on Yvette 10/09/22 at 0927, Until Yvette 10/09/22 at 1243, Routine, Pain (scale 7-10), PACU
Us e approved by (Faculty): PACU USE -ANESTHESI A SERVICE-HY DROMORPHON E INJECTIONS [facility] FENTanyl PF (SUBLIMAZE (PF)) injection 25 mcg 10-09 14:27: 10-09 17:43 :01 No 25ug 25 mcg, Slow IV Push, Q5MIN PRN, 4 doses, Starting on Yvette 10/09/22 at 0927, Until Yvette 10/09/22 at 1243, Routine, Pain (scale 4-6), PACU [facility] ondansetron (ZOFRAN (PF)) injection 4 mg 10-09 14:2710-09 17:43 :01 No 4mg 4 mg, Slow IV Push, PRN, 1 dose, Starting on Yvette 10/09/22 at 0927, Until Yvette 10/09/22 at 1243, Routine, Nausea and Vomiting (N/V), PACU [facility] bupivacaine (preserv free) (SENSORCAIN E MPF) 0.25 % (2.5 mg/mL) injection 10-09 14:10: 00 Yes PRN, Starting on Yvette 10/09/22 at 0910, Until Discontinu ed, Routine, Intra-op [facility] bupivacaine (preserv free) (SENSORCAIN E MPF) 0.25 % (2.5 mg/mL) injection 10-09 14:10: 00 10-09 17:43 :01 No PRN, Starting on Yvette 10/09/22 at 0910, Until Yvette 10/09/22 at 1243, Routine, Intra-op [facility] NaCl 0.9% (NS) IV infusion 10-09 12:52: 00 10-09 14:25 :01 No CONTINUOUS PRN, Starting on Yvette 10/09/22 at 0752, Until Yvette 10/09/22 at 0925, Routine, Intra-op [facility] heparin 25,000 Units/250 mL (Premixed Bag) in 0.45 % NS 10-09 12:52: 00 10-09 14:25 :01 No CONTINUOUS PRN, Starting on Yvette 10/09/22 at 0752, Until Yvette 10/09/22 at 0925, Routine, Intra-op [facility] acetaminoph en 325 mg tablet 10-09 10:43: 01 Yes Take by mouth every 6 (six) hours as needed. [facility] atorvastati n 40 mg tablet 10-09 10:43: 01 Yes 40mg Take 1 tablet by mouth every evening. [facility] clopidogreL 75 mg tablet 10-09 10:43: 01 Yes 75mg Take 1 tablet by mouth in the morning. [facility] midodrine 10 mg tablet 10-09 10:43: 01 Yes 10mg Take 1 tablet by mouth in the morning and 1 tablet at noon and 1 tablet in the evening. [facility] tamsulosin 0.4 mg 24 hr capsule 10-09 10:43: 01 Yes Take by mouth every evening. [facility] cyanocobala min, vitamin B-12, (VITAMIN B12 ORAL) 10-09 10:43: 01 Yes Take by mouth. [facility] acetaminoph en 325 mg tablet 10-09 10:43: 01 Yes Take by mouth every 6 (six) hours as needed. [facility] atorvastati n 40 mg tablet 10-09 10:43: 01 Yes 40mg Take 1 tablet by mouth every evening. [facility] clopidogreL 75 mg tablet 10-09 10:43: 01 Yes 75mg Take 1 tablet by mouth in the morning. [facility] midodrine 10 mg tablet 10-09 10:43: 01 Yes 10mg Take 1 tablet by mouth in the morning and 1 tablet at noon and 1 tablet in the evening. [facility] tamsulosin 0.4 mg 24 hr capsule 10-09 10:43: 01 Yes Take by mouth every evening. [facility] cyanocobala min, vitamin B-12, (VITAMIN B12 ORAL) 10-09 10:43: 01 Yes Take by mouth. [facility] FUROSEMIDE ORAL 10-02 09:41: 19 10-02 00:00 :00 No 20mg Take 20 mg by mouth in the morning. [facility] FUROSEMIDE ORAL 10-02 09:41: 19 10-02 00:00 :00 No 20mg Take 20 mg by mouth in the morning. [facility] NaCl 0.9% (NS) IV infusion 1,000 mL 09-26 11:30: 00 Yes 1000mL at 42 mL/hr, IV Infusion, CONTINUOUS , Starting on Thu09/26/22 at 0630, Until Discontinu ed, Routine, DSU Pre-op [facility] acetaminoph en 325 mg tablet 09-26 06:41: 51 Yes Take by mouth every 6 (six) hours as needed. [facility] atorvastati n 40 mg tablet 09-26 06:41: 51 Yes 40mg Take 1 tablet by mouth every evening. [facility] clopidogreL 75 mg tablet 09-26 06:41: 51 Yes 75mg Take 1 tablet by mouth in the morning. [facility] FUROSEMIDE ORAL 09-26 06:41: 51 Yes Take by mouth daily. [facility] midodrine 10 mg tablet 09-26 06:41: 51 Yes 10mg Take 1 tablet by mouth in the morning and 1 tablet at noon and 1 tablet in the evening. [facility] tamsulosin 0.4 mg 24 hr capsule 09-26 06:41: 51 Yes Take by mouth every evening. [facility] cyanocobala min, vitamin B-12, (VITAMIN B12 ORAL) 09-26 06:41: 51 Yes Take by mouth. [facility] acetaminoph en 325 mg tablet 09-26 06:41: 51 Yes Take by mouth every 6 (six) hours as needed. [facility] atorvastati n 40 mg tablet 09-26 06:41: 51 Yes 40mg Take 1 tablet by mouth every evening. [facility] clopidogreL 75 mg tablet 09-26 06:41: 51 Yes 75mg Take 1 tablet by mouth in the morning. [facility] FUROSEMIDE ORAL 09-26 06:41: 51 Yes Take by mouth daily. [facility] midodrine 10 mg tablet 09-26 06:41: 51 Yes 10mg Take 1 tablet by mouth in the morning and 1 tablet at noon and 1 tablet in the evening. [facility] tamsulosin 0.4 mg 24 hr capsule 09-26 06:41: 51 Yes Take by mouth every evening. [facility] cyanocobala min, vitamin B-12, (VITAMIN B12 ORAL) 09-26 06:41: 51 Yes Take by mouth. [facility] acetaminoph en 325 mg tablet 09-26 06:41: 51 Yes Take by mouth every 6 (six) hours as needed. [facility] atorvastati n 40 mg tablet 09-26 06:41: 51 Yes 40mg Take 1 tablet by mouth every evening. [facility] clopidogreL 75 mg tablet 0 09-26 06:41: 51 Yes 75mg Take 1 tablet by mouth in the morning. [facility] FUROSEMIDE ORAL 09-26 06:41: 51 Yes Take by mouth daily. [facility] midodrine 10 mg tablet 09-26 06:41: 51 Yes 10mg Take 1 tablet by mouth in the morning and 1 tablet at noon and 1 tablet in the evening. [facility] tamsulosin 0.4 mg 24 hr capsule 0 09-26 06:41: 51 Yes Take by mouth every evening. [facility] cyanocobala min, vitamin B-12, (VITAMIN B12 ORAL) 09-26 06:41: 51 Yes Take by mouth. [facility] furosemide 40 mg tablet 09-24 00:00: 00 Yes 40mg Take 1 tablet by mouth in the morning. [facility] furosemide 40 mg tablet 0 09-24 00:00: 00 Yes 40mg Take 1 tablet by mouth in the morning. [facility] furosemide 40 mg tablet 0 09-24 00:00: 00 10-29 00:00 :00 No 40mg Take 1 tablet by mouth in the morning. [facility] furosemide 40 mg tablet 2022-0 09-24 00:00: 00 10-29 00:00 :00 No 40mg Take 1 tablet by mouth in the morning. [facility] furosemide 40 mg tablet 0 09-24 00:00: 00 10-29 00:00 :00 No 40mg Take 1 tablet by mouth in the morning. [facility] acetaminoph en 325 mg tablet 2022-0 09-19 13:37: 48 Yes Take by mouth every 6 (six) hours as needed. [facility] atorvastati n 40 mg tablet 2022-0 09-19 13:37: 48 Yes 40mg Take 1 tablet by mouth every evening. [facility] clopidogreL 75 mg tablet 2022-0 09-19 13:37: 48 Yes 75mg Take 1 tablet by mouth in the morning. [facility] FUROSEMIDE ORAL 09-19 13:37: 48 Yes Take by mouth daily. [facility] midodrine 10 mg tablet 09-19 13:37: 48 Yes 10mg Take 1 tablet by mouth in the morning and 1 tablet at noon and 1 tablet in the evening. [facility] tamsulosin 0.4 mg 24 hr capsule 09-19 13:37: 48 Yes Take by mouth every evening. [facility] cyanocobala min, vitamin B-12, (VITAMIN B12 ORAL) 09-19 13:37: 48 Yes Take by mouth. [facility] amiodarone 200 mg tablet 09-01 10:11: 09-01 00:00 :00 No 200mg Take 1 tablet by mouth in the morning and 1 tablet in the evening. [facility] amiodarone 200 mg tablet 09-01 10:11: 10 09-01 00:00 :00 No 200mg Take 1 tablet by mouth in the morning and 1 tablet in the evening. [facility] amiodarone 200 mg tablet 09-01 10:11: 09-01 00:00 :00 No 200mg Take 1 tablet by mouth in the morning and 1 tablet in the evening. [facility] amiodarone 200 mg tablet 09-01 10:11: 09-01 00:00 :00 No 200mg Take 1 tablet by mouth in the morning and 1 tablet in the evening. [facility] acetaminoph en 325 mg tablet 09-01 09:51: 16 Yes Take by mouth every 6 (six) hours as needed. [facility] atorvastati n 40 mg tablet 09-01 09:51: 16 Yes 40mg Take 1 tablet by mouth every evening. [facility] clopidogreL 75 mg tablet 09-01 09:51: 16 Yes 75mg Take 1 tablet by mouth in the morning. [facility] FUROSEMIDE ORAL 09-01 09:51: 16 Yes Take by mouth daily. [facility] midodrine 10 mg tablet 09-01 09:51: 16 Yes 10mg Take 1 tablet by mouth in the morning and 1 tablet at noon and 1 tablet in the evening. [facility] tamsulosin 0.4 mg 24 hr capsule 09-01 09:51: 16 Yes Take by mouth every evening. [facility] cyanocobala min, vitamin B-12, (VITAMIN B12 ORAL) 09-01 09:51: 16 Yes Take by mouth. [facility] acetaminoph en 325 mg tablet 09-01 09:51: 16 Yes Take by mouth every 6 (six) hours as needed. [facility] atorvastati n 40 mg tablet 09-01 09:51: 16 Yes 40mg Take 1 tablet by mouth every evening. [facility] clopidogreL 75 mg tablet 09-01 09:51: 16 Yes 75mg Take 1 tablet by mouth in the morning. [facility] FUROSEMIDE ORAL 09-01 09:51: 16 Yes Take by mouth daily. [facility] midodrine 10 mg tablet 09-01 09:51: 16 Yes 10mg Take 1 tablet by mouth in the morning and 1 tablet at noon and 1 tablet in the evening. [facility] tamsulosin 0.4 mg 24 hr capsule 09-01 09:51: 16 Yes Take by mouth every evening. [facility] cyanocobala min, vitamin B-12, (VITAMIN B12 ORAL) 09-01 09:51: 16 Yes Take by mouth. [facility] acetaminoph en 325 mg tablet 09-01 09:51: 16 Yes Take by mouth every 6 (six) hours as needed. [facility] atorvastati n 40 mg tablet 09-01 09:51: 16 Yes 40mg Take 1 tablet by mouth every evening. [facility] clopidogreL 75 mg tablet 09-01 09:51: 16 Yes 75mg Take 1 tablet by mouth in the morning. [facility] FUROSEMIDE ORAL 09-01 09:51: 16 Yes Take by mouth daily. [facility] midodrine 10 mg tablet 09-01 09:51: 16 Yes 10mg Take 1 tablet by mouth in the morning and 1 tablet at noon and 1 tablet in the evening. [facility] tamsulosin 0.4 mg 24 hr capsule 09-01 09:51: 16 Yes Take by mouth every evening. [facility] cyanocobala min, vitamin B-12, (VITAMIN B12 ORAL) 09-01 09:51: 16 Yes Take by mouth. [facility] acetaminoph en 325 mg tablet 09-01 09:51: 16 Yes Take by mouth every 6 (six) hours as needed. [facility] atorvastati n 40 mg tablet 09-01 09:51: 16 Yes 40mg Take 1 tablet by mouth every evening. [facility] clopidogreL 75 mg tablet 09-01 09:51: 16 Yes 75mg Take 1 tablet by mouth in the morning. [facility] FUROSEMIDE ORAL 09-01 09:51: 16 Yes Take by mouth daily. [facility] midodrine 10 mg tablet 09-01 09:51: 16 Yes 10mg Take 1 tablet by mouth in the morning and 1 tablet at noon and 1 tablet in the evening. [facility] tamsulosin 0.4 mg 24 hr capsule 09-01 09:51: 16 Yes Take by mouth every evening. [facility] cyanocobala min, vitamin B-12, (VITAMIN B12 ORAL) 09-01 09:51: 16 Yes Take by mouth. [facility] amiodarone 200 mg tablet 09-01 00:00: 00 Yes [id number] 200mg Take 1 tablet by mouth in the morning. [facility] amiodarone 200 mg tablet 09-01 00:00: 00 Yes [id number] 200mg Take 1 tablet by mouth in the morning. [facility] amiodarone 200 mg tablet 3-0 327 00:00: 00 Yes [id number] 200mg Take 1 tablet by mouth in the morning. [facility] amiodarone 200 mg tablet 3-0 327 00:00: 00 Yes [id number] 200mg Take 1 tablet by mouth in the morning. [facility] amiodarone 200 mg tablet 3-0 327 00:00: 00 Yes [id number] 200mg Take 1 tablet by mouth in the morning. [facility] amiodarone 200 mg tablet 3-0 327 00:00: 00 Yes [id number] 200mg Take 1 tablet by mouth in the morning. [facility] amiodarone 200 mg tablet 3-0 327 00:00: 00 Yes [id number] 200mg Take 1 tablet by mouth in the morning. [facility] amiodarone 200 mg tablet 3-0 327 00:00: 00 Yes [id number] 200mg Take 1 tablet by mouth in the morning. [facility] amiodarone 200 mg tablet 3-0 327 00:00: 00 Yes [id number] 200mg Take 1 tablet by mouth in the morning. [facility] amiodarone 200 mg tablet 3-0 327 00:00: 00 Yes [id number] 200mg Take 1 tablet by mouth in the morning. [facility] amiodarone 200 mg tablet 3-0 327 00:00: 00 Yes [id number] 200mg Take 1 tablet by mouth in the morning. [facility] amiodarone 200 mg tablet 3-0 327 00:00: 00 Yes [id number] 200mg Take 1 tablet by mouth in the morning. [facility] amiodarone 200 mg tablet 3-0 3-27 00:00: 00 Yes [id number] 200mg Take 1 tablet by mouth in the morning. [facility] amiodarone 200 mg tablet 3-0 327 00:00: 00 Yes [id number] 200mg Take 1 tablet by mouth in the morning. [facility] amiodarone 200 mg tablet 0 09-01 00:00: 00 Yes [id number] 200mg Take 1 tablet by mouth in the morning. [facility] amiodarone 200 mg tablet 0 09-01 00:00: 00 Yes [id number] 200mg Take 1 tablet by mouth in the morning. [facility] amiodarone 200 mg tablet 0 09-01 00:00: 00 Yes [id number] 200mg Take 1 tablet by mouth in the morning. [facility] amiodarone 200 mg tablet 0 09-01 00:00: 00 Yes [id number] 200mg Take 1 tablet by mouth in the morning. [facility] amiodarone 200 mg tablet 0 09-01 00:00: 00 Yes [id number] 200mg Take 1 tablet by mouth in the morning. [facility] amiodarone 200 mg tablet 0 09-01 00:00: 00 Yes [id number] 200mg Take 1 tablet by mouth in the morning. [facility] amiodarone 200 mg tablet 0 09-01 00:00: 00 Yes [id number] 200mg Take 1 tablet by mouth in the morning. [facility] amiodarone 200 mg tablet 0 09-01 00:00: 00 Yes [id number] 200mg Take 1 tablet by mouth in the morning. [facility] amiodarone 200 mg tablet 0 09-01 00:00: 00 Yes [id number] 200mg Take 1 tablet by mouth in the morning. [facility] amiodarone 200 mg tablet 2022-0 09-01 00:00: 00 Yes [id number] 200mg Take 1 tablet by mouth in the morning. [facility] amiodarone 200 mg tablet 0 09-01 00:00: 00 Yes [id number] 200mg Take 1 tablet by mouth in the morning. [facility] Vital Signs Vital Name Observation Time Observation Value Comments [facility] Systolic blood pressure 2023-01-08 21:16:00 87 mm[Hg] [facility] Diastolic blood pressure 2023-01-08 21:16:00 50 mm[Hg] [facility] Heart rate 2023-01-08 21:16:00 98 /min [facility] Body temperature 2023-01-08 21:16:00 37.28 Riddhi [facility] Respiratory rate 2023-01-08 21:16:00 18 /min [facility] Body height 2023-01-08 21:16:00 177.8 cm [facility] Body weight 2023-01-08 21:16:00 82.555 kg [facility] BMI 2023-01-08 21:16:00 26.11 kg/m2 [facility] Oxygen saturation in Arterial blood by Pulse oximetry 2023-01-08 21:16:00 96 /min [facility] Systolic blood pressure 2022-10-29 14:46:00 128 mm[Hg] [facility] Diastolic blood pressure 2022-10-29 14:46:00 61 mm[Hg] [facility] Heart rate 2022-10-29 14:46:00 71 /min [facility] Body height 2022-10-29 14:46:00 177.8 cm [facility] Body weight 2022-10-29 14:46:00 82.419 kg [facility] BMI 2022-10-29 14:46:00 26.07 kg/m2 [facility] Oxygen saturation in Arterial blood by Pulse oximetry 2022-10-29 14:46:00 97 /min [facility] Systolic blood pressure 2022-10-09 14:57:00 102 mm[Hg] [facility] Diastolic blood pressure 2022-10-09 14:57:00 56 mm[Hg] [facility] Respiratory rate 2022-10-09 14:57:00 14 /min [facility] Oxygen saturation in Arterial blood by Pulse oximetry 2022-10-09 14:57:00 95 /min [facility] Heart rate 2022-10-09 14:31:00 75 /min [facility] Body temperature 2022-10-09 14:27:00 36.61 Riddhi [facility] Body height 2022-10-02 14:00:00 177.8 cm [facility] Body weight 2022-10-02 14:00:00 81.647 kg [facility] BMI 2022-10-02 14:00:00 25.83 kg/m2 [facility] Respiratory rate 2022-10-09 14:53:00 14 /min [facility] Oxygen saturation in Arterial blood by Pulse oximetry 2022-10-09 14:53:00 96 /min [facility] Systolic blood pressure 2022-10-09 14:51:00 100 mm[Hg] [facility] Diastolic blood pressure 2022-10-09 14:51:00 57 mm[Hg] [facility] Heart rate 2022-10-09 14:31:00 75 /min [facility] Body temperature 2022-10-09 14:27:00 36.61 Riddhi [facility] Body height 2022-10-02 14:00:00 177.8 cm [facility] Body weight 2022-10-02 14:00:00 81.647 kg [facility] BMI 2022-10-02 14:00:00 25.83 kg/m2 [facility] Systolic blood pressure 2022-09-26 11:30:00 132 mm[Hg] [facility] Diastolic blood pressure 2022-09-26 11:30:00 70 mm[Hg] [facility] Heart rate 2022-09-26 11:30:00 75 /min [facility] Body temperature 2022-09-26 11:30:00 36.17 Riddhi [facility] Respiratory rate 2022-09-26 11:30:00 15 /min [facility] Oxygen saturation in Arterial blood by Pulse oximetry 2022-09-26 11:30:00 95 /min [facility] Body height 2022-09-19 18:30:00 177.8 cm [facility] Body weight 2022-09-19 18:30:00 81.647 kg [facility] BMI 2022-09-19 18:30:00 25.83 kg/m2 [facility] Systolic blood pressure 2022-09-01 14:54:00 125 mm[Hg] [facility] Diastolic blood pressure 2022-09-01 14:54:00 67 mm[Hg] [facility] Heart rate 2022-09-01 14:54:00 70 /min [facility] Body temperature 2022-09-01 14:54:00 36.5 Riddhi [facility] Respiratory rate 2022-09-01 14:54:00 17 /min [facility] Body weight 2022-09-01 14:54:00 80.74 kg [facility] Oxygen saturation in Arterial blood by Pulse oximetry 2022-09-01 14:54:00 100 /min [facility] Systolic blood pressure 2022-09-26 11:30:00 132 mm[Hg] [facility] Diastolic blood pressure 2022-09-26 11:30:00 70 mm[Hg] [facility] Heart rate 2022-09-26 11:30:00 75 /min [facility] Body temperature 2022-09-26 11:30:00 36.17 Riddhi [facility] Respiratory rate 2022-09-26 11:30:00 15 /min [facility] Oxygen saturation in Arterial blood by Pulse oximetry 2022-09-26 11:30:00 95 /min [facility] Body height 2022-09-19 18:30:00 177.8 cm [facility] Body weight 2022-09-19 18:30:00 81.647 kg [facility] BMI 2022-09-19 18:30:00 25.83 kg/m2 [facility] Procedures Procedure Date / Time Performed Performing Clinician Source REFERRAL- REQUEST/RESPONSE 2023-05-07 06:01:00 D octor Unassigned, [place] [facility] REFERRAL- REQUEST/RESPONSE 2022-12-10 05:01:00 D octor Unassigned, [place] [facility] MISC - NON-LEGAL REC 2022-11-17 05:01:00 Doctor Unassigned, [place] [facility] INSURANCE CORRESPONDENCE 2022-11-14 05:01:00 Doc tor Unassigned, [place] [facility] ARTERIOVENOUS FISTULA CREATION 2022-10-09 12:07:00 Mirza Nassar [facility] NOTICE OF PRIVACY PRACTICES 2022-09-22 13:22:13 Doctor Unassigned, [place] [facility] CONSENT/REFUSAL FOR DIAGNOSIS AND TREATMENT 2022-09-22 13:21:53 Doctor Unassigned, [place] [facility] ASSIGNMENT OF BENEFITS 2022-09-22 13:21:30 Docto r Unassigned, [place] [facility] HB ECG ROUTINE & RHYTHM STRIP 2022-09-01 14:59:19 Jacque Sheridan [facility] HB ECG ROUTINE & RHYTHM STRIP 2022-09-01 14:59:19 Jacque Sheridan [facility] NOTICE OF BILLING PRACTICES FOR MEDICARE PATIENTS 2022-09-01 14:38:44 Doctor Unassigned, [place] [facility] NO SHOW OR MISSED APPOINTMENT POLICY ACKNOWLEDGEMENT 2022-09-01 14:38:24 Doctor Unassigned, [place] [facility] CONSENT/REFUSAL FOR DIAGNOSIS AND TREATMENT 2022-09-01 14:38:06 Doctor Unassigned, [place] [facility] ASSIGNMENT OF BENEFITS 2022-09-01 14:37:46 Docto r Unassigned, [place] [facility] PATIENT FINANCIAL POLICY 2022-09-01 14:37:24 Doctor Unassigned, [place] [facility] AUTHORIZATION TO RELEASE PHI TO [facility] 2022-09-01 05:01:00 Doctor Unassigned, [place] [facility] REFERRAL- REQUEST/RESPONSE 2022-08-25 05:01:00 D octor Unassigned, [place] [facility] REFERRAL- REQUEST/RESPONSE 2022-08-23 05:01:00 D octor Unassigned, [place] [facility] [id number] 2022[facility]07[facility]28 [id number] 2022-07-25 00:00:00 [facility] [id number] 2022-07-23 00:00:00 [facility] [id number] 2022-07-21 00:00:00 [facility] [id number] 2022-07-18 00:00:00 [facility] [id number] 2022-07-16 00:00:00 [facility]U [facility] [id number] 2022-07-15 00:00:00 CHAAB.01 [facility] [id number] 2022-07-15 00:00:00 CHAAB.01 [facility] [id number] 2022-07-15 00:00:00 CHAAB.01 [facility] [id number] 2022-07-15 00:00:00 ALTMU [facility] [id number] 2022-07-14 00:00:00 KYRPO [facility] [id number] 2022-07-12 00:00:00 ALTMU [facility] [id number] 2022-07-08 00:00:00 CHAAB.01 [facility] [id number] 2022-07-08 00:00:00 CHAAB.01 [facility] [id number] 2022-07-08 00:00:00 CHAAB.01 [facility] [id number] 2022-07-08 00:00:00 CHAAB.01 [facility] [id number] 2022-07-08 00:00:00 CHAAB.01 [facility] [id number] 2022-07-08 00:00:00 CHAAB.01 [facility] [id number] 2022-07-08 00:00:00 CHAAB.01 [facility] [id number] 2022-07-08 00:00:00 CHAAB.01 [facility] [id number] 2022-07-08 00:00:00 CHAAB.01 [facility] [id number] 2022-07-08 00:00:00 CHAAB.01 [facility] [id number] 2022-07-07 00:00:00 ALTMU [facility] [id number] 2022-07-06 00:00:00 ALTMU [facility] [id number] 2022-07-05 00:00:00 ALTMU [facility] [id number] 2022-07-04 00:00:00 [facility]TMU [facility] [id number] 2022-07-03 00:00:00 ALTMU [facility] [id number] 2022-07-02 00:00:00 RAMED [facility] Encounters Start Date/Time End Date/Time Encounter Type Admission Type Attending [facility] Care Department Encounter ID Source 2023-04-01 08:34:00 Outpatient Kathryn Marin [facility] [id number] [facility] 2023-05-07 00:00:00 2023-05-07 00:00:00 Orders Only Doctor Unassigned, [place] [facility] 1.2.840.114 350.1.13.10 4.2.7.2.686 [id number] [facility] 2023-04-24 15:20:00 2023-04-24 15:20:00 Outpatient JACQUE HARRINGTON [facility] [id number] [facility] 2023-01-28 11:20:00 2023-01-28 11:20:00 Outpatient JACQUE HARRINGTON [facility] [id number] [facility] 2023-01-15 13:40:00 2023-01-15 13:40:00 Outpatient DAVID RAMIRES CHOCKALINGA M [facility] [id number] [facility] 2023-01-08 16:15:00 2023-01-08 16:59:23 Outpatient R MIRZA NASSAR [facility] [id number] [facility] 2023-01-08 16:15:00 2023-01-08 16:59:23 Office Visit Mirza Nassar [facility] 1..114 350.1.13.10 4.2.7.2.686 [id number] [facility] 2022-12-25 14:45:00 2022-12-25 14:45:00 Outpatient R MIRZA NASSAR [facility] [id number] [facility] 2022-12-25 00:00:00 2022-12-25 00:00:[facility]114 350.1.13.10 4.2.7.2.686 [id number] [facility] 2022-12-11 14:30:00 2022-12-11 14:48:06 Outpatient R MIRZA NASSAR [facility] [id number] [facility] 2022-12-10 00:00:00 2022-12-10 00:00:00 Orders Only Doctor Unassigned, [place] [facility] 1..114 350.1.13.10 4.2.7.2.686 [id number] [facility] 2022-12-02 00:00:00 2022-12-02 00:00[facility].114 350.1.13.10 4.2.7.2.686 [id number] [facility] 2022-11-21 00:00:00 2022-11-21 00:00:00 [facility] 1.20.114 350.1.13.10 4.2.7.2.686 [id number] [facility] 2022-11-21 00:00:00 2022-11-21 00:00:00 [facility] 1.2.840.114 350.1.13.10 4.2.7.2.686 [id number] [facility] 2022-11-19 07:50:18 2022-11-19 08:09:00 [id number] 2022-11-17 00:00:00 2022-11-17 00:00:00 Orders Only Doctor Unassigned, [place] [facility] 1.2.840.114 350.1.13.10 4.2.7.2.686 [id number] [facility] 2022-11-14 00:00:00 2022-11-14 00:00:00 Orders Only Doctor Unassigned, [place] [facility] 1.2.840.114 350.1.13.10 4.2.7.2.686 [id number] [facility] 2022-10-29 10:00:00 2022-10-29 10:00:00 [facility] 1.2.840.114 350.1.13.10 4.2.7.2.686 [id number] [facility] 2022-10-29 10:00:00 2022-10-29 09:59:12 [facility] [id number] [facility] 2022-10-23 16:45:00 2022-10-23 13:54:08 Outpatient MIRZA TERRELL [facility] [id number] [facility] 2022-10-09 06:24:00 2022-10-09 10:11:00 Outpatient MIRZA TERRELL [facility] [id number] [facility] 2022-10-09 06:24:00 2022-10-09 10:11:00 Hospital Encounter Mirza Nassar [facility] 1.2.840.114 350.1.13.10 4.2.7.2.686 [id number] [facility] 2022-10-09 07:10:00 2022-10-09 09:53:00 Surgery Mirza Nassar [facility] 1.2.840.114 350.1.13.10 4.2.7.2.686 [id number] [facility] 2022-09-26 06:43:01 2022-09-26 06:43:01 Anesthesia Event Juan F Marley 1.2.840.1 [id number] 3.104.2.7 .3.090912 .8 [id number] [facility] 2022-09-26 06:25:00 2022-09-26 06:41:00 Outpatient R MIRZA NASSAR [facility] [id number] [facility] 2022-09-26 06:25:00 2022-09-26 06:41:00 Hospital Encounter Mirza Nassar 1.2.840.1 [id number] 3.104.2.7 .3.354995 .8 [id number] [facility] 2022-09-26 00:00:00 2022-09-26 00:00:00 Telephone Mirza Nassar 1.2.840.1 [id number] 3.104.2.7 .3.403561 .8 [id number] [facility] 2022-09-19 00:00:00 2022-09-19 00:00:00 Travel 1.2.840.1 [id number] 3.104.2.7 .3.362080 .8 1.2.840.114 350.1.13.10 4.2.7.3.698 [id number] [facility] 2022-09-15 00:00:00 2022-09-15 00:00:00 Hospital Encounter Adilson Roth 1.2.840.1 [id number] 3.104.2.7 .3.118461 .8 [id number] [facility] 2022-09-15 00:00:00 2022-09-15 00:00:00 Outpatient R ADILSON ROTH [facility] [id number] [facility] 2022-09-15 00:00:00 2022-09-15 00:00:00 Telephone Adilson Roth 1.2.840.1 [id number] 3.104.2.7 .3.874193 .8 [id number] [facility] 2022-09-15 00:00:00 2022-09-15 00:00:00 Letter (Out) Adilson Roth 1.2.840.1 14406.1.1 3.104.2.7 .3.249670 .8 [id number] [facility] 2022-09-04 14:30:00 2022-09-04 14:35:39 Office Visit Mirza Nassar 1.2.840.1 21478.1.1 3.104.2.7 .3.822206 .8 [id number] [facility] 2022-09-04 14:30:00 2022-09-04 14:35:39 Outpatient R MIRZA NASSAR [facility] [id number] [facility] 2022-09-04 00:00:00 2022-09-04 00:00:00 Travel 1.2.840.1 [id number] 3.104.2.7 .3.931377 .8 1.2.840.114 350.1.13.10 4.2.7.3.698 [id number] [facility] 2022-09-01 10:00:00 2022-09-01 10:18:19 Office Visit Jacque Sheridan 1.2.840.1 [id number] 3.104.2.7 .3.490949 .8 [id number] [facility] 2022-09-01 10:00:00 2022-09-01 10:18:19 Outpatient R BRUNA SHERIDANBRODERICK [facility] [id number] [facility] 2022-09-01 00:00:00 2022-09-01 00:00:00 Travel 1.2.840.1 [id number] 3.104.2.7 .3.211274 .8 1.2.840.114 350.1.13.10 4.2.7.3.698 [id number] [facility] 2022-09-01 00:00:00 2022-09-01 00:00:00 Orders Only Doctor Unassigned, [place] 1.2.840.1 [id number] 3.104.2.7 .3.226761 .8 [id number] [facility] 2022-08-23 00:00:00 2022-08-23 00:00:00 Orders Only Doctor Unassigned, [place] 1.2.840.1 [id number] 3.104.2.7 .3.178953 .8 [id number] [facility] 2022-07-29 00:00:00 2022-07-29 00:00:00 Outpatient CHRETIEN_F HAYWARD [facility] 2022-07-29 00:00:00 2022-07-29 00:00:00 Outpatient [facility]RETIEN[facility] 2022-07-02 18:38:00 2022-07-28 17:36:00 Inpatient UR Vu, Srinath HCACL INTE [id number] 47 [facility] 2019-07-27 07:29:00 2019-07-27 07:29:00 Outpatient Jonh HOFF [facility] [id number] [facility] e Results Test Description Test Time Test Comments Results Result Co mments Source [id number] 07:59:00* Test Item Value Reference Range Interpretation Comme nts MAGNESIUM (test code = MAG) 1.91 mg/dL 1.80-2.40 N CBC W/AUTO [id number] 06:58:00* Test Item Value Reference Range Interpretation Comme nts WHITE BLOOD CELL (test code = WBC) 10.5 x10 3/uL 4.5-11.0 N RED BLOOD CELL (test code = RBC) 2.79 x10 6/uL 4.00-5.60 L HEMOGLOBIN (test code = HGB) 8.1 g/dL 12.5-16.9 L HEMATOCRIT (test code = HCT) 26.4 % 37.5-50.7 L MEAN CELL VOLUME (test code = MCV) 94.6 fL 81.0-99.0 N MEAN CELL HGB (test code = MCH) 29.0 pg 27.0-33.0 N MEAN CELL HGB CONCETRATION (test code = MCHC) 30.7 g/dL 33.0-37.0 L RED CELL DISTRIBUTION WIDTH CV (test code = RDW) 16.1 % 11.5-14.5 H RED CELL DISTRIBUTION WIDTH SD (test code = RDW-SD) 55.7 fL 37.0-54.0 H PLATELET COUNT (test code = PLT) 308 x10 3/uL 150-400 N MEAN PLATELET VOLUME (test c ode = MPV) 10.5 fL 7.0-9.0 H NEUTROPHIL % (test code = NT%) 66.9 % 56.0-77.0 N IMMATURE GRANULOCYTE % (test code = IG%) 0.7 % 0.0-2.0 N LYMPHOCYTE % (test code = LY%) 13.8 % 14.0-32.0 L MONOCYTE % (test code = MO%) 7.9 % 4.8-9.0 N EOSINOPHIL % (test code = EO%) 9.8 % 0.3-3.7 H BASOPHIL % (test code = BA%) 0.9 % 0.0-2.0 N NUCLEATED RBC % (test code = NRBC%) 0.0 % 0-0 N NEUTROPHIL # (test code = NT#) 7.05 x10 3/uL 2.0-7.6 N IMMATURE GRANULOCYTE # (test code = IG#) 0.07 x10 3/uL 0.00-0.03 H LYMPHOCYTE # (test code = LY#) 1.45 x10 3/uL 1.0-3.8 N MONOCYTE # (test code = MO#) 0.83 x10 3/uL 0.1-0.8 H EOSINOPHIL # (test code = EO#) 1.03 x10 3/uL 0.0-0.2 H BASOPHIL # (test code = BA#) 0.09 x10 3/uL 0.0-0.2 N NUCLEATED RBC # (test code = NRBC#) 0.00 x10 3/uL 0.0-0.1 N MANUAL DIFF REQUIRED (test c ode = MDIFF) NO BASIC METABOLIC [id number] 08:27:00* Test Item Value Reference Range Interpretation Comme nts SODIUM (test code = NA) 142 mEq/L 134-147 N POTASSIUM (test code = K) 4.6 mEq/L 3.4-5.0 N CHLORIDE (test code = CL) 109 mEq/L 100-108 H CARBON DIOXIDE (test code = CO2) 26 mEq/l 21-33 N ANION GAP (test code = GAP) 12 0-20 N GLUCOSE (test code = GLU) 93 mg/dL 70-110 N BLOOD UREA NITROGEN (test code = BUN) 35 mg/dL 7-18 H GLOMERULAR FILTRATION RATE (test code = GFR) 17.6 70-80 L The Glomerular Filtration Rate is a calculated parameterbased on serum Creatinine, patient age and sex. GFR valuesless than 60 mL/min/1.73 square meters are indicative ofChronic Kidney Disease. Values less than 15 mL/min/1.73square meters indicate Kidney failure. The calculation forGFR is based on the CKD-EPI (2020) calculation. This formulais race indifferent and is the recommended formula for GFRby the National Kidney Foundation for Adults.The GFR will not calculate if the sex is unknown or if thepatient's age is <18 years. CREATININE (test code = CREAT) 3.4 mg/dL 0.6-1.3 H CALCIUM (test code = CA) 8.8 mg/dL 8.0-10.5 N CBC W/AUTO [id number] 08:23:00* Test Item Value Reference Range Interpretation Comme nts WHITE BLOOD CELL (test code = WBC) 10.9 x10 3/uL 4.5-11.0 N RED BLOOD CELL (test code = RBC) 2.82 x10 6/uL 4.00-5.60 L HEMOGLOBIN (test code = HGB) 8.3 g/dL 12.5-16.9 L HEMATOCRIT (test code = HCT) 26.8 % 37.5-50.7 L MEAN CELL VOLUME (test code = MCV) 95.0 fL 81.0-99.0 N MEAN CELL HGB (test code = MCH) 29.4 pg 27.0-33.0 N MEAN CELL HGB CONCETRATION (test code = MCHC) 31.0 g/dL 33.0-37.0 L RED CELL DISTRIBUTION WIDTH CV (test code = RDW) 16.3 % 11.5-14.5 H RED CELL DISTRIBUTION WIDTH SD (test code = RDW-SD) 55.7 fL 37.0-54.0 H PLATELET COUNT (test code = PLT) 322 x10 3/uL 150-400 N MEAN PLATELET VOLUME (test c ode = MPV) 10.5 fL 7.0-9.0 H NEUTROPHIL % (test code = NT%) 70.7 % 56.0-77.0 N IMMATURE GRANULOCYTE % (test code = IG%) 0.6 % 0.0-2.0 N LYMPHOCYTE % (test code = LY%) 10.3 % 14.0-32.0 L MONOCYTE % (test code = MO%) 8.3 % 4.8-9.0 N EOSINOPHIL % (test code = EO%) 9.4 % 0.3-3.7 H BASOPHIL % (test code = BA%) 0.7 % 0.0-2.0 N NUCLEATED RBC % (test code = NRBC%) 0.0 % 0-0 N NEUTROPHIL # (test code = NT#) 7.69 x10 3/uL 2.0-7.6 H IMMATURE GRANULOCYTE # (test code = IG#) 0.06 x10 3/uL 0.00-0.03 H LYMPHOCYTE # (test code = LY#) 1.12 x10 3/uL 1.0-3.8 N MONOCYTE # (test code = MO#) 0.90 x10 3/uL 0.1-0.8 H EOSINOPHIL # (test code = EO#) 1.02 x10 3/uL 0.0-0.2 H BASOPHIL # (test code = BA#) 0.08 x10 3/uL 0.0-0.2 N NUCLEATED RBC # (test code = NRBC#) 0.00 x10 3/uL 0.0-0.1 N MANUAL DIFF REQUIRED (test c ode = MDIFF) NO [id number] 08:14:00* Test Item Value Reference Range Interpretation Comme nts MAGNESIUM (test code = MAG) 2.00 mg/dL 1.80-2.40 N - XR CHEST 1 [id number] 00:00:00 [facility] 1940 Sex: M FAX: [place] [phone] [place]: St: ADM FAX: Lina Rivera [phone] FAX: Jesus Montana MD [phone] Name: SHERRI ARCE [facility] : 1940 Age/S: 81/M [address] [place] [address] Unit #: [id number] Loc: [id number] [place] [address] Phys: Lina Schwarz MD Acct: [id number] Dis Date: Status: ADM IN PHONE #: [phone] Exam Date: 07/27/2022702 FAX #: [phone] Reason: R/OPLEURAL EFFUSION EXAMS: CPT CODE: [id number] XR CHEST 1 V 29560 PROCEDURE INFORMATION: Exam: XR Chest Exam date and time: 07/27/2022 7:03 AM Age: 81 years old Clinical indication: Pain; Other: R/O pleural effusion TECHNIQUE: Imaging protocol: Radiologic exam of the chest. Views: 1 view. COMPARISON:CR XR CHEST 1V 07/26/2022 6:43 AM FINDINGS: [...] (820) PAGE 1 Signed ReportUR CREATININE CLEARANCE [id number] 11:10:00* Test Item Value Reference Range Interpretation Comme nts CREATININE CLEARANCE RESULT (test code = CREATCLR) 7 MLS/MIN 70-130 L CREATININE (test code = CREAT) 4.5 mg/dL 0.6-1.3 H UR CREATININE RANDOM (test code = CREATU) 22.3 mg/dL The Reference Ra nge and Method Performance specificationshave not been established for this fluid. The test resultshould be correlated into the clinical context forinterpretation. UR CREATININE 24HR (test code = CRRN98V) 0.5 GM/24HR 1.0-1.6 L UR VOLUME (test code = VOL) 2050 mL UR COLLECTION TIME (test code = COLTM) 1440 MIN UR UREA NITROGEN [id number] 11:10:00* Test Item Value Reference Range Interpretation Comme nts UR UREA NITROGEN RANDOM (test code = UUN) 178 mg/dL Not Estab. Performed At: [facility] [address] [id number] Anderson MD Ph:[phone] reported result: 178 mg/dLEdited by: FARRAH on 07/26/22:539729 1110: UR UREA NIT RAN previously reported as: 178 mg/dL Performed At: [facility] [address] [id number] Taylor Anderson MD Ph:[phone] UR UREA NITROGEN 24HR (test code = UUN24T) 4 g/24 hr 4-16 Performed A t: [facility] [address] [id number] Anderson MD Ph:[phone] [id number] 04:43:00* Test Item Value Reference Range Interpretation Comme nts MAGNESIUM (test code = MAG) 1.76 mg/dL 1.80-2.40 L BASIC METABOLIC [id number] 04:41:00* Test Item Value Reference Range Interpretation Comme nts SODIUM (test code = NA) 142 mEq/L 134-147 N POTASSIUM (test code = K) 4.4 mEq/L 3.4-5.0 N CHLORIDE (test code = CL) 111 mEq/L 100-108 H CARBON DIOXIDE (test code = CO2) 25 mEq/l 21-33 N ANION GAP (test code = GAP) 10 0-20 N GLUCOSE (test code = GLU) 99 mg/dL 70-110 N BLOOD UREA NITROGEN (test code = BUN) 32 mg/dL 7-18 H GLOMERULAR FILTRATION RATE (test code = GFR) 17.0 70-80 L The Glomerular Filtration Rate is a calculated parameterbased on serum Creatinine, patient age and sex. GFR valuesless than 60 mL/min/1.73 square meters are indicative ofChronic Kidney Disease. Values less than 15 mL/min/1.73square meters indicate Kidney failure. The calculation forGFR is based on the CKD-EPI (202) calculation. This formulais race indifferent and is the recommended formula for GFRby the National Kidney Foundation for Adults.The GFR will not calculate if the sex is unknown or if thepatient's age is <18 years. CREATININE (test code = CREAT) 3.5 mg/dL 0.6-1.3 H CALCIUM (test code = CA) 8.3 mg/dL 8.0-10.5 N CBC W/AUTO [id number] 04:19:00* Test Item Value Reference Range Interpretation Comme nts WHITE BLOOD CELL (test code = WBC) 10.8 x10 3/uL 4.5-11.0 N RED BLOOD CELL (test code = RBC) 2.72 x10 6/uL 4.00-5.60 L HEMOGLOBIN (test code = HGB) 8.0 g/dL 12.5-16.9 L HEMATOCRIT (test code = HCT) 26.1 % 37.5-50.7 L MEAN CELL VOLUME (test code = MCV) 96.0 fL 81.0-99.0 N MEAN CELL HGB (test code = MCH) 29.4 pg 27.0-33.0 N MEAN CELL HGB CONCETRATION (test code = MCHC) 30.7 g/dL 33.0-37.0 L RED CELL DISTRIBUTION WIDTH CV (test code = RDW) 16.1 % 11.5-14.5 H RED CELL DISTRIBUTION WIDTH SD (test code = RDW-SD) 57.2 fL 37.0-54.0 H PLATELET COUNT (test code = PLT) 316 x10 3/uL 150-400 N MEAN PLATELET VOLUME (test c ode = MPV) 10.4 fL 7.0-9.0 H NEUTROPHIL % (test code = NT%) 70.0 % 56.0-77.0 N IMMATURE GRANULOCYTE % (test code = IG%) 0.7 % 0.0-2.0 N LYMPHOCYTE % (test code = LY%) 10.4 % 14.0-32.0 L MONOCYTE % (test code = MO%) 7.5 % 4.8-9.0 N EOSINOPHIL % (test code = EO%) 10.7 % 0.3-3.7 H BASOPHIL % (test code = BA%) 0.7 % 0.0-2.0 N NUCLEATED RBC % (test code = NRBC%) 0.0 % 0-0 N NEUTROPHIL # (test code = NT#) 7.52 x10 3/uL 2.0-7.6 N IMMATURE GRANULOCYTE # (test code = IG#) 0.07 x10 3/uL 0.00-0.03 H LYMPHOCYTE # (test code = LY#) 1.12 x10 3/uL 1.0-3.8 N MONOCYTE # (test code = MO#) 0.81 x10 3/uL 0.1-0.8 H EOSINOPHIL # (test code = EO#) 1.15 x10 3/uL 0.0-0.2 H BASOPHIL # (test code = BA#) 0.08 x10 3/uL 0.0-0.2 N NUCLEATED RBC # (test code = NRBC#) 0.00 x10 3/uL 0.0-0.1 N MANUAL DIFF REQUIRED (test c ode = MDIFF) NO - XR CHEST 1 [id number] 00:00:00 [facility] 1940 Sex: M FAX: [place] [phone] [place]: St: ADM FAX: Lina Rivera [phone] FAX: Srinath Bills MD [phone] Name: SHERRI ARCE [facility] : 1940 Age/S: 81/M [address] [place] [address] Blvd Unit #: [id number] Loc: G.3354 [place] [address] Phys: Lina Schwarz MD Acct: [id number] Dis Date: Status: ADM IN PHONE #: [phone] Exam Date: 07/26/2022 0645 FAX #: [phone] Reason: R/O PLEURAL EFFUSION EXAMS: CPT CODE: [id number] XR CHEST 1 V 48605 PROCEDURE INFORMATION: Exam: XR Chest E xam date and time: 07/26/2022 6:43 AM Age: [...] M.D. CC: [place] DO; Lina Schwarz MD;Srinath Kaur MD Technologist: Isidro Jarquin; Elaina Reeves, RT(R) Trnscrd Date/Time/By: 07/26/2022 (8353) : By: [email or web address] Orig Print D/T: S: 07/26/2022 (0696) PAGE 1 Signed [id number] 08:32:00* Test Item Value Reference Range Interpretation Comme nts MAGNESIUM (test code = MAG) 1.87 mg/dL 1.80-2.40 N CBC W/AUTO [id number] 07:46:00* Test Item Value Reference Range Interpretation Comme nts WHITE BLOOD CELL (test code = WBC) 10.6 x10 3/uL 4.5-11.0 N RED BLOOD CELL (test code = RBC) 2.85 x10 6/uL 4.00-5.60 L HEMOGLOBIN (test code = HGB) 8.2 g/dL 12.5-16.9 L HEMATOCRIT (test code = HCT) 27.3 % 37.5-50.7 L MEAN CELL VOLUME (test code = MCV) 95.8 fL 81.0-99.0 N MEAN CELL HGB (test code = MCH) 28.8 pg 27.0-33.0 N MEAN CELL HGB CONCETRATION (test code = MCHC) 30.0 g/dL 33.0-37.0 L RED CELL DISTRIBUTION WIDTH CV (test code = RDW) 16.1 % 11.5-14.5 H RED CELL DISTRIBUTION WIDTH SD (test code = RDW-SD) 57.1 fL 37.0-54.0 H PLATELET COUNT (test code = PLT) 364 x10 3/uL 150-400 N MEAN PLATELET VOLUME (test c ode = MPV) 10.3 fL 7.0-9.0 H NEUTROPHIL % (test code = NT%) 69.4 % 56.0-77.0 N IMMATURE GRANULOCYTE % (test code = IG%) 0.8 % 0.0-2.0 N LYMPHOCYTE % (test code = LY%) 8.9 % 14.0-32.0 L MONOCYTE % (test code = MO%) 8.6 % 4.8-9.0 N EOSINOPHIL % (test code = EO%) 11.4 % 0.3-3.7 H BASOPHIL % (test code = BA%) 0.9 % 0.0-2.0 N NUCLEATED RBC % (test code = NRBC%) 0.0 % 0-0 N NEUTROPHIL # (test code = NT#) 7.38 x10 3/uL 2.0-7.6 N IMMATURE GRANULOCYTE # (test code = IG#) 0.09 x10 3/uL 0.00-0.03 H LYMPHOCYTE # (test code = LY#) 0.95 x10 3/uL 1.0-3.8 L MONOCYTE # (test code = MO#) 0.91 x10 3/uL 0.1-0.8 H EOSINOPHIL # (test code = EO#) 1.21 x10 3/uL 0.0-0.2 H BASOPHIL # (test code = BA#) 0.10 x10 3/uL 0.0-0.2 N NUCLEATED RBC # (test code = NRBC#) 0.00 x10 3/uL 0.0-0.1 N MANUAL DIFF REQUIRED (test c ode = MDIFF) NO BASIC METABOLIC [id number] 07:38:00* Test Item Value Reference Range Interpretation Comme nts SODIUM (test code = NA) 140 mEq/L 134-147 N POTASSIUM (test code = K) 4.6 mEq/L 3.4-5.0 N CHLORIDE (test code = CL) 107 mEq/L 100-108 N CARBON DIOXIDE (test code = CO2) 22 mEq/l 21-33 N ANION GAP (test code = GAP) 16 0-20 N GLUCOSE (test code = GLU) 86 mg/dL 70-110 N BLOOD UREA NITROGEN (test code = BUN) 40 mg/dL 7-18 H GLOMERULAR FILTRATION RATE (test code = GFR) 14.5 70-80 L The Glomerular Filtration Rate is a calculated parameterbased on serum Creatinine, patient age and sex. GFR valuesless than 60 mL/min/1.73 square meters are indicative ofChronic Kidney Disease. Values less than 15 mL/min/1.73square meters indicate Kidney failure. The calculation forGFR is based on the CKD-EPI (2020) calculation. This formulais race indifferent and is the recommended formula for GFRby the National Kidney Foundation for Adults.The GFR will not calculate if the sex is unknown or if thepatient's age is <18 years. CREATININE (test code = CREAT) 4.0 mg/dL 0.6-1.3 H CALCIUM (test code = CA) 8.7 mg/dL 8.0-10.5 N BASIC METABOLIC [id number] 08:00:00* Test Item Value Reference Range Interpretation Comme nts SODIUM (test code = NA) 144 mEq/L 134-147 N POTASSIUM (test code = K) 4.0 mEq/L 3.4-5.0 N CHLORIDE (test code = CL) 111 mEq/L 100-108 H CARBON DIOXIDE (test code = CO2) 26 mEq/l 21-33 N ANION GAP (test code = GAP) 10 0-20 N GLUCOSE (test code = GLU) 85 mg/dL 70-110 N BLOOD UREA NITROGEN (test code = BUN) 40 mg/dL 7-18 H GLOMERULAR FILTRATION RATE (test code = GFR) 17.6 70-80 L The Glomerular Filtration Rate is a calculated parameterbased on serum Creatinine, patient age and sex. GFR valuesless than 60 mL/min/1.73 square meters are indicative ofChronic Kidney Disease. Values less than 15 mL/min/1.73square meters indicate Kidney failure. The calculation forGFR is based on the CKD-EPI (2020) calculation. This formulais race indifferent and is the recommended formula for GFRby the National Kidney Foundation for Adults.The GFR will not calculate if the sex is unknown or if thepatient's age is <18 years. CREATININE (test code = CREAT) 3.4 mg/dL 0.6-1.3 H CALCIUM (test code = CA) 8.4 mg/dL 8.0-10.5 N [id number] 07:59:00* Test Item Value Reference Range Interpretation Comme nts MAGNESIUM (test code = MAG) 1.87 mg/dL 1.80-2.40 N CBC W/AUTO [id number] 06:08:00* Test Item Value Reference Range Interpretation Comme nts WHITE BLOOD CELL (test code = WBC) 10.4 x10 3/uL 4.5-11.0 N RED BLOOD CELL (test code = RBC) 2.63 x10 6/uL 4.00-5.60 L HEMOGLOBIN (test code = HGB) 7.8 g/dL 12.5-16.9 L HEMATOCRIT (test code = HCT) 25.0 % 37.5-50.7 L MEAN CELL VOLUME (test code = MCV) 95.1 fL 81.0-99.0 N MEAN CELL HGB (test code = MCH) 29.7 pg 27.0-33.0 N MEAN CELL HGB CONCETRATION (test code = MCHC) 31.2 g/dL 33.0-37.0 L RED CELL DISTRIBUTION WIDTH CV (test code = RDW) 16.1 % 11.5-14.5 H RED CELL DISTRIBUTION WIDTH SD (test code = RDW-SD) 56.1 fL 37.0-54.0 H PLATELET COUNT (test code = PLT) 331 x10 3/uL 150-400 N MEAN PLATELET VOLUME (test c ode = MPV) 10.4 fL 7.0-9.0 H NEUTROPHIL % (test code = NT%) 68.8 % 56.0-77.0 N IMMATURE GRANULOCYTE % (test code = IG%) 0.7 % 0.0-2.0 N LYMPHOCYTE % (test code = LY%) 9.8 % 14.0-32.0 L MONOCYTE % (test code = MO%) 8.7 % 4.8-9.0 N EOSINOPHIL % (test code = EO%) 11.0 % 0.3-3.7 H BASOPHIL % (test code = BA%) 1.0 % 0.0-2.0 N NUCLEATED RBC % (test code = NRBC%) 0.0 % 0-0 N NEUTROPHIL # (test code = NT#) 7.17 x10 3/uL 2.0-7.6 N IMMATURE GRANULOCYTE # (test code = IG#) 0.07 x10 3/uL 0.00-0.03 H LYMPHOCYTE # (test code = LY#) 1.02 x10 3/uL 1.0-3.8 N MONOCYTE # (test code = MO#) 0.90 x10 3/uL 0.1-0.8 H EOSINOPHIL # (test code = EO#) 1.14 x10 3/uL 0.0-0.2 H BASOPHIL # (test code = BA#) 0.10 x10 3/uL 0.0-0.2 N NUCLEATED RBC # (test code = NRBC#) 0.00 x10 3/uL 0.0-0.1 N MANUAL DIFF REQUIRED (test c ode = MDIFF) NO BASIC METABOLIC [id number] 08:15:00* Test Item Value Reference Range Interpretation Comme nts SODIUM (test code = NA) 143 mEq/L 134-147 N POTASSIUM (test code = K) 4.2 mEq/L 3.4-5.0 N CHLORIDE (test code = CL) 109 mEq/L 100-108 H CARBON DIOXIDE (test code = CO2) 24 mEq/l 21-33 N ANION GAP (test code = GAP) 14 0-20 N GLUCOSE (test code = GLU) 79 mg/dL 70-110 N BLOOD UREA NITROGEN (test code = BUN) 48 mg/dL 7-18 H GLOMERULAR FILTRATION RATE (test code = GFR) 14.1 70-80 L The Glomerular Filtration Rate is a calculated parameterbased on serum Creatinine, patient age and sex. GFR valuesless than 60 mL/min/1.73 square meters are indicative ofChronic Kidney Disease. Values less than 15 mL/min/1.73square meters indicate Kidney failure. The calculation forGFR is based on the CKD-EPI (2020) calculation. This formulais race indifferent and is the recommended formula for GFRby the National Kidney Foundation for Adults.The GFR will not calculate if the sex is unknown or if thepatient's age is <18 years. CREATININE (test code = CREAT) 4.1 mg/dL 0.6-1.3 H CALCIUM (test code = CA) 8.5 mg/dL 8.0-10.5 N [id number] 08:10:00* Test Item Value Reference Range Interpretation Comme nts MAGNESIUM (test code = MAG) 2.00 mg/dL 1.80-2.40 N CBC W/AUTO [id number] 07:45:00* Test Item Value Reference Range Interpretation Comme nts WHITE BLOOD CELL (test code = WBC) 11.6 x10 3/uL 4.5-11.0 H RED BLOOD CELL (test code = RBC) 2.56 x10 6/uL 4.00-5.60 L HEMOGLOBIN (test code = HGB) 7.5 g/dL 12.5-16.9 L HEMATOCRIT (test code = HCT) 24.7 % 37.5-50.7 L MEAN CELL VOLUME (test code = MCV) 96.5 fL 81.0-99.0 N MEAN CELL HGB (test code = MCH) 29.3 pg 27.0-33.0 N MEAN CELL HGB CONCETRATION (test code = MCHC) 30.4 g/dL 33.0-37.0 L RED CELL DISTRIBUTION WIDTH CV (test code = RDW) 16.2 % 11.5-14.5 H RED CELL DISTRIBUTION WIDTH SD (test code = RDW-SD) 58.1 fL 37.0-54.0 H PLATELET COUNT (test code = PLT) 352 x10 3/uL 150-400 N MEAN PLATELET VOLUME (test c ode = MPV) 10.5 fL 7.0-9.0 H NEUTROPHIL % (test code = NT%) 71.0 % 56.0-77.0 N IMMATURE GRANULOCYTE % (test code = IG%) 0.9 % 0.0-2.0 N LYMPHOCYTE % (test code = LY%) 8.3 % 14.0-32.0 L MONOCYTE % (test code = MO%) 8.2 % 4.8-9.0 N EOSINOPHIL % (test code = EO%) 10.8 % 0.3-3.7 H BASOPHIL % (test code = BA%) 0.8 % 0.0-2.0 N NUCLEATED RBC % (test code = NRBC%) 0.0 % 0-0 N NEUTROPHIL # (test code = NT#) 8.26 x10 3/uL 2.0-7.6 H IMMATURE GRANULOCYTE # (test code = IG#) 0.10 x10 3/uL 0.00-0.03 H LYMPHOCYTE # (test code = LY#) 0.96 x10 3/uL 1.0-3.8 L MONOCYTE # (test code = MO#) 0.95 x10 3/uL 0.1-0.8 H EOSINOPHIL # (test code = EO#) 1.25 x10 3/uL 0.0-0.2 H BASOPHIL # (test code = BA#) 0.09 x10 3/uL 0.0-0.2 N NUCLEATED RBC # (test code = NRBC#) 0.00 x10 3/uL 0.0-0.1 N MANUAL DIFF REQUIRED (test c ode = MDIFF) NO [id number] 04:27:00* Test Item Value Reference Range Interpretation Comme nts MAGNESIUM (test code = MAG) 2.00 mg/dL 1.80-2.40 N BASIC METABOLIC [id number] 04:05:00* Test Item Value Reference Range Interpretation Comme nts SODIUM (test code = NA) 143 mEq/L 134-147 N POTASSIUM (test code = K) 4.1 mEq/L 3.4-5.0 N CHLORIDE (test code = CL) 109 mEq/L 100-108 H CARBON DIOXIDE (test code = CO2) 26 mEq/l 21-33 N ANION GAP (test code = GAP) 13 0-20 N GLUCOSE (test code = GLU) 94 mg/dL 70-110 N BLOOD UREA NITROGEN (test code = BUN) 35 mg/dL 7-18 H GLOMERULAR FILTRATION RATE (test code = GFR) 18.3 70-80 L The Glomerular Filtration Rate is a calculated parameterbased on serum Creatinine, patient age and sex. GFR valuesless than 60 mL/min/1.73 square meters are indicative ofChronic Kidney Disease. Values less than 15 mL/min/1.73square meters indicate Kidney failure. The calculation forGFR is based on the CKD-EPI (202) calculation. This formulais race indifferent and is the recommended formula for GFRby the [employer] Kid[employer] Foundation for Adults.The GFR will not calculate if the sex is unknown or if thepatient's age is <18 years. CREATININE (test code = CREAT) 3.3 mg/dL 0.6-1.3 H CALCIUM (test code = CA) 8.1 mg/dL 8.0-10.5 N CBC W/AUTO [id number] 03:57:00* Test Item Value Reference Range Interpretation Comme nts WHITE BLOOD CELL (test code = WBC) 13.5 x10 3/uL 4.5-11.0 H RED BLOOD CELL (test code = RBC) 2.62 x10 6/uL 4.00-5.60 L HEMOGLOBIN (test code = HGB) 7.7 g/dL 12.5-16.9 L HEMATOCRIT (test code = HCT) 24.8 % 37.5-50.7 L MEAN CELL VOLUME (test code = MCV) 94.7 fL 81.0-99.0 N MEAN CELL HGB (test code = MCH) 29.4 pg 27.0-33.0 N MEAN CELL HGB CONCETRATION (test code = MCHC) 31.0 g/dL 33.0-37.0 L RED CELL DISTRIBUTION WIDTH CV (test code = RDW) 16.1 % 11.5-14.5 H RED CELL DISTRIBUTION WIDTH SD (test code = RDW-SD) 55.5 fL 37.0-54.0 H PLATELET COUNT (test code = PLT) 344 x10 3/uL 150-400 N MEAN PLATELET VOLUME (test code = MPV) 9.9 fL 7.0-9.0 H NEUTROPHIL % (test code = NT%) 75.6 % 56.0-77.0 N IMMATURE GRANULOCYTE % (test code = IG%) 1.0 % 0.0-2.0 N LYMPHOCYTE % (test code = LY%) 7.3 % 14.0-32.0 L MONOCYTE % (test code = MO%) 6.8 % 4.8-9.0 N EOSINOPHIL % (test code = EO%) 8.6 % 0.3-3.7 H BASOPHIL % (test code = BA%) 0.7 % 0.0-2.0 N NUCLEATED RBC % (test code = NRBC%) 0.0 % 0-0 N NEUTROPHIL # (test code = NT#) 10.21 x10 3/uL 2.0-7.6 H IMMATURE GRANULOCYTE # (test code = IG#) 0.14 x10 3/uL 0.00-0.03 H LYMPHOCYTE # (test code = LY#) 0.99 x10 3/uL 1.0-3.8 L MONOCYTE # (test code = MO#) 0.92 x10 3/uL 0.1-0.8 H EOSINOPHIL # (test code = EO#) 1.17 x10 3/uL 0.0-0.2 H BASOPHIL # (test code = BA#) 0.10 x10 3/uL 0.0-0.2 N NUCLEATED RBC # (test code = NRBC#) 0.00 x10 3/uL 0.0-0.1 N MANUAL DIFF REQUIRED (test code = MDIFF) NO [id number] 08:08:00* Test Item Value Reference Range Interpretation Comme nts MAGNESIUM (test code = MAG) 1.93 mg/dL 1.80-2.40 N BASIC METABOLIC [id number] 08:08:00* Test Item Value Reference Range Interpretation Comme nts SODIUM (test code = NA) 141 mEq/L 134-147 N POTASSIUM (test code = K) 3.8 mEq/L 3.4-5.0 N CHLORIDE (test code = CL) 108 mEq/L 100-108 N CARBON DIOXIDE (test code = CO2) 24 mEq/l 21-33 N ANION GAP (test code = GAP) 13 0-20 N GLUCOSE (test code = GLU) 93 mg/dL 70-110 N BLOOD UREA NITROGEN (test code = BUN) 58 mg/dL 7-18 H GLOMERULAR FILTRATION RATE (test code = GFR) 12.6 70-80 L The Glomerular Filtration Rate is a calculated parameterbased on serum Creatinine, patient age and sex. GFR valuesless than 60 mL/min/1.73 square meters are indicative ofChronic Kidney Disease. Values less than 15 mL/min/1.73square meters indicate Kidney failure. The calculation forGFR is based on the CKD-EPI (2020) calculation. This formulais race indifferent and is the recommended formula for GFRby the National Kidney Foundation for Adults.The GFR will not calculate if the sex is unknown or if thepatient's age is <18 years. CREATININE (test code = CREAT) 4.5 mg/dL 0.6-1.3 H CALCIUM (test code = CA) 8.2 mg/dL 8.0-10.5 N CBC W/AUTO [id number] 07:09:00* Test Item Value Reference Range Interpretation Comme nts WHITE BLOOD CELL (test code = WBC) 16.8 x10 3/uL 4.5-11.0 H RED BLOOD CELL (test code = RBC) 2.62 x10 6/uL 4.00-5.60 L HEMOGLOBIN (test code = HGB) 7.7 g/dL 12.5-16.9 L HEMATOCRIT (test code = HCT) 25.0 % 37.5-50.7 L MEAN CELL VOLUME (test code = MCV) 95.4 fL 81.0-99.0 N MEAN CELL HGB (test code = MCH) 29.4 pg 27.0-33.0 N MEAN CELL HGB CONCETRATION (test code = MCHC) 30.8 g/dL 33.0-37.0 L RED CELL DISTRIBUTION WIDTH CV (test code = RDW) 16.0 % 11.5-14.5 H RED CELL DISTRIBUTION WIDTH SD (test code = RDW-SD) 56.6 fL 37.0-54.0 H PLATELET COUNT (test code = PLT) 363 x10 3/uL 150-400 N MEAN PLATELET VOLUME (test code = MPV) 10.2 fL 7.0-9.0 H NEUTROPHIL % (test code = NT%) 79.9 % 56.0-77.0 H IMMATURE GRANULOCYTE % (test code = IG%) 1.0 % 0.0-2.0 N LYMPHOCYTE % (test code = LY%) 5.3 % 14.0-32.0 L MONOCYTE % (test code = MO%) 6.4 % 4.8-9.0 N EOSINOPHIL % (test code = EO%) 6.9 % 0.3-3.7 H BASOPHIL % (test code = BA%) 0.5 % 0.0-2.0 N NUCLEATED RBC % (test code = NRBC%) 0.0 % 0-0 N NEUTROPHIL # (test code = NT#) 13.41 x10 3/uL 2.0-7.6 H IMMATURE GRANULOCYTE # (test code = IG#) 0.16 x10 3/uL 0.00-0.03 H LYMPHOCYTE # (test code = LY#) 0.88 x10 3/uL 1.0-3.8 L MONOCYTE # (test code = MO#) 1.07 x10 3/uL 0.1-0.8 H EOSINOPHIL # (test code = EO#) 1.16 x10 3/uL 0.0-0.2 H BASOPHIL # (test code = BA#) 0.08 x10 3/uL 0.0-0.2 N NUCLEATED RBC # (test code = NRBC#) 0.00 x10 3/uL 0.0-0.1 N MANUAL DIFF REQUIRED (test code = MDIFF) NO BASIC METABOLIC [id number] 07:52:00* Test Item Value Reference Range Interpretation Comme nts SODIUM (test code = NA) 143 mEq/L 134-147 N POTASSIUM (test code = K) 4.0 mEq/L 3.4-5.0 N CHLORIDE (test code = CL) 108 mEq/L 100-108 N CARBON DIOXIDE (test code = CO2) 25 mEq/l 21-33 N ANION GAP (test code = GAP) 14 0-20 N GLUCOSE (test code = GLU) 87 mg/dL 70-110 N BLOOD UREA NITROGEN (test code = BUN) 44 mg/dL 7-18 H GLOMERULAR FILTRATION RATE (test code = GFR) 14.5 70-80 L The Glomerular Filtration Rate is a calculated parameterbased on serum Creatinine, patient age and sex. GFR valuesless than 60 mL/min/1.73 square meters are indicative ofChronic Kidney Disease. Values less than 15 mL/min/1.73square meters indicate Kidney failure. The calculation forGFR is based on the CKD-EPI (2020) calculation. This formulais race indifferent and is the recommended formula for GFRby the National Kidney Foundation for Adults.The GFR will not calculate if the sex is unknown or if thepatient's age is <18 years. CREATININE (test code = CREAT) 4.0 mg/dL 0.6-1.3 H CALCIUM (test code = CA) 8.4 mg/dL 8.0-10.5 N [id number] 07:49:00* Test Item Value Reference Range Interpretation Comme nts MAGNESIUM (test code = MAG) 2.05 mg/dL 1.80-2.40 N CBC W/AUTO [id number] 07:31:00* Test Item Value Reference Range Interpretation Comme nts WHITE BLOOD CELL (test code = WBC) 14.7 x10 3/uL 4.5-11.0 H RED BLOOD CELL (test code = RBC) 2.67 x10 6/uL 4.00-5.60 L HEMOGLOBIN (test code = HGB) 8.0 g/dL 12.5-16.9 L HEMATOCRIT (test code = HCT) 25.6 % 37.5-50.7 L MEAN CELL VOLUME (test code = MCV) 95.9 fL 81.0-99.0 N MEAN CELL HGB (test code = MCH) 30.0 pg 27.0-33.0 N MEAN CELL HGB CONCETRATION (test code = MCHC) 31.3 g/dL 33.0-37.0 L RED CELL DISTRIBUTION WIDTH CV (test code = RDW) 16.0 % 11.5-14.5 H RED CELL DISTRIBUTION WIDTH SD (test code = RDW-SD) 55.8 fL 37.0-54.0 H PLATELET COUNT (test code = PLT) 359 x10 3/uL 150-400 N MEAN PLATELET VOLUME (test code = MPV) 10.1 fL 7.0-9.0 H NEUTROPHIL % (test code = NT%) 76.4 % 56.0-77.0 N IMMATURE GRANULOCYTE % (test code = IG%) 1.4 % 0.0-2.0 N LYMPHOCYTE % (test code = LY%) 6.5 % 14.0-32.0 L MONOCYTE % (test code = MO%) 7.1 % 4.8-9.0 N EOSINOPHIL % (test code = EO%) 7.8 % 0.3-3.7 H BASOPHIL % (test code = BA%) 0.8 % 0.0-2.0 N NUCLEATED RBC % (test code = NRBC%) 0.0 % 0-0 N NEUTROPHIL # (test code = NT#) 11.22 x10 3/uL 2.0-7.6 H IMMATURE GRANULOCYTE # (test code = IG#) 0.20 x10 3/uL 0.00-0.03 H LYMPHOCYTE # (test code = LY#) 0.95 x10 3/uL 1.0-3.8 L MONOCYTE # (test code = MO#) 1.04 x10 3/uL 0.1-0.8 H EOSINOPHIL # (test code = EO#) 1.14 x10 3/uL 0.0-0.2 H BASOPHIL # (test code = BA#) 0.12 x10 3/uL 0.0-0.2 N NUCLEATED RBC # (test code = NRBC#) 0.00 x10 3/uL 0.0-0.1 N MANUAL DIFF REQUIRED (test code = MDIFF) NO CBC W/AUTO [id number] 07:59:00* Test Item Value Reference Range Interpretation Comme nts WHITE BLOOD CELL (test code = WBC) 11.3 x10 3/uL 4.5-11.0 H RED BLOOD CELL (test code = RBC) 2.74 x10 6/uL 4.00-5.60 L HEMOGLOBIN (test code = HGB) 8.1 g/dL 12.5-16.9 L HEMATOCRIT (test code = HCT) 25.7 % 37.5-50.7 L MEAN CELL VOLUME (test code = MCV) 93.8 fL 81.0-99.0 N MEAN CELL HGB (test code = MCH) 29.6 pg 27.0-33.0 N MEAN CELL HGB CONCETRATION (test code = MCHC) 31.5 g/dL 33.0-37.0 L RED CELL DISTRIBUTION WIDTH CV (test code = RDW) 16.1 % 11.5-14.5 H RED CELL DISTRIBUTION WIDTH SD (test code = RDW-SD) 54.7 fL 37.0-54.0 H PLATELET COUNT (test code = PLT) 365 x10 3/uL 150-400 N MEAN PLATELET VOLUME (test c ode = MPV) 10.2 fL 7.0-9.0 H NEUTROPHIL % (test code = NT%) 72.3 % 56.0-77.0 N IMMATURE GRANULOCYTE % (test code = IG%) 1.7 % 0.0-2.0 N LYMPHOCYTE % (test code = LY%) 9.3 % 14.0-32.0 L MONOCYTE % (test code = MO%) 8.1 % 4.8-9.0 N EOSINOPHIL % (test code = EO%) 7.9 % 0.3-3.7 H BASOPHIL % (test code = BA%) 0.7 % 0.0-2.0 N NUCLEATED RBC % (test code = NRBC%) 0.0 % 0-0 N NEUTROPHIL # (test code = NT#) 8.15 x10 3/uL 2.0-7.6 H IMMATURE GRANULOCYTE # (test code = IG#) 0.19 x10 3/uL 0.00-0.03 H LYMPHOCYTE # (test code = LY#) 1.05 x10 3/uL 1.0-3.8 N MONOCYTE # (test code = MO#) 0.91 x10 3/uL 0.1-0.8 H EOSINOPHIL # (test code = EO#) 0.89 x10 3/uL 0.0-0.2 H BASOPHIL # (test code = BA#) 0.08 x10 3/uL 0.0-0.2 N NUCLEATED RBC # (test code = NRBC#) 0.00 x10 3/uL 0.0-0.1 N MANUAL DIFF REQUIRED (test c ode = MDIFF) NO BASIC METABOLIC [id number] 07:40:00* Test Item Value Reference Range Interpretation Comme nts SODIUM (test code = NA) 141 mEq/L 134-147 N POTASSIUM (test code = K) 4.0 mEq/L 3.4-5.0 N CHLORIDE (test code = CL) 106 mEq/L 100-108 N CARBON DIOXIDE (test code = CO2) 26 mEq/l 21-33 N ANION GAP (test code = GAP) 13 0-20 N GLUCOSE (test code = GLU) 91 mg/dL 70-110 N BLOOD UREA NITROGEN (test code = BUN) 31 mg/dL 7-18 H GLOMERULAR FILTRATION RATE (test code = GFR) 19.0 70-80 L The Glomerular Filtration Rate is a calculated parameterbased on serum Creatinine, patient age and sex. GFR valuesless than 60 mL/min/1.73 square meters are indicative ofChronic Kidney Disease. Values less than 15 mL/min/1.73square meters indicate Kidney failure. The calculation forGFR is based on the CKD-EPI (2020) calculation. This formulais race indifferent and is the recommended formula for GFRby the National Kidney Foundation for Adults.The GFR will not calculate if the sex is unknown or if thepatient's age is <18 years. CREATININE (test code = CREAT) 3.2 mg/dL 0.6-1.3 H CALCIUM (test code = CA) 8.0 mg/dL 8.0-10.5 N [id number] 07:36:00* Test Item Value Reference Range Interpretation Comme nts MAGNESIUM (test code = MAG) 2.12 mg/dL 1.80-2.40 N - XR CHEST 1 [id number] 00:00:00 [facility] 1940 Sex: M FAX: [place] [phone] [place]: St: ADM FAX: Gianna Carmona [phone] FAX: Srinath Smith MD [phone] Name: SHERRI ARCE [facility] : 1940 Age/S: 81/M [address] [place] [address] Unit #: [id number] Loc: G.[address] [place] [address] Phys: Gianna Hoover Acct: [id number] Dis Date: Status: ADM IN PHONE #: [phone] Exam Date: 07/19/2022 0754 FAX #: [phone] Reason: Post CV Surgery EXAMS: CPT CODE: [id number] XR CHEST 1 V [id number] PROCEDURE INFORMATION: Exam: XR Chest Exam date and time: 07/19/2022 6:33 AM Age: 81 years old Clinical indication: Other: Post cv surgery TECHNIQUE: Imaging protocol: Radiologic exam of the chest. Views: 1 view. COMPARISON: CR XR CHEST 1V 07/18/2022 5:14 AM FINDINGS: Tubes, catheters and devices: Stable position of right central catheter. Lungs: Bibasilar consolidation has some improved aeration bilaterally. [...] aeration bilaterally. Small bilateral pleural effusions. Mild atele ctasis about the left perihilar region. No other focal infiltrates within the lungs. Left apical pleural thickening similar to prior study. at 1126 Reported and signed by: Chaim Alonzo M.D. 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 at [facility] [id number] 08:44:00* Test Item Value Reference Range Interpretation Comme nts MAGNESIUM (test code = MAG) 1.97 mg/dL 1.80-2.40 N BASIC METABOLIC [id number] 08:39:00* Test Item Value Reference Range Interpretation Comme nts SODIUM (test code = NA) 143 mEq/L 134-147 N POTASSIUM (test code = K) 3.8 mEq/L 3.4-5.0 N CHLORIDE (test code = CL) 107 mEq/L 100-108 N CARBON DIOXIDE (test code = CO2) 25 mEq/l 21-33 N ANION GAP (test code = GAP) 15 0-20 N GLUCOSE (test code = GLU) 91 mg/dL 70-110 N BLOOD UREA NITROGEN (test code = BUN) 47 mg/dL 7-18 H GLOMERULAR FILTRATION RATE (test code = GFR) 13.7 70-80 L The Glomerular Filtration Rate is a calculated parameterbased on serum Creatinine, patient age and sex. GFR valuesless than 60 mL/min/1.73 square meters are indicative ofChronic Kidney Disease. Values less than 15 mL/min/1.73square meters indicate Kidney failure. The calculation forGFR is based on the CKD-EPI (2020) calculation. This formulais race indifferent and is the recommended formula for GFRby the National Kidney Foundation for Adults.The GFR will not calculate if the sex is unknown or if thepatient's age is <18 years. CREATININE (test code = CREAT) 4.2 mg/dL 0.6-1.3 H CALCIUM (test code = CA) 8.7 mg/dL 8.0-10.5 N CBC W/AUTO [id number] 08:12:00* Test Item Value Reference Range Interpretation Comme nts WHITE BLOOD CELL (test code = WBC) 12.4 x10 3/uL 4.5-11.0 H RED BLOOD CELL (test code = RBC) 2.84 x10 6/uL 4.00-5.60 L HEMOGLOBIN (test code = HGB) 8.3 g/dL 12.5-16.9 L HEMATOCRIT (test code = HCT) 26.9 % 37.5-50.7 L MEAN CELL VOLUME (test code = MCV) 94.7 fL 81.0-99.0 N MEAN CELL HGB (test code = MCH) 29.2 pg 27.0-33.0 N MEAN CELL HGB CONCETRATION (test code = MCHC) 30.9 g/dL 33.0-37.0 L RED CELL DISTRIBUTION WIDTH CV (test code = RDW) 15.9 % 11.5-14.5 H RED CELL DISTRIBUTION WIDTH SD (test code = RDW-SD) 55.3 fL 37.0-54.0 H PLATELET COUNT (test code = PLT) 363 x10 3/uL 150-400 N MEAN PLATELET VOLUME (test c ode = MPV) 10.1 fL 7.0-9.0 H NEUTROPHIL % (test code = NT%) 73.2 % 56.0-77.0 N IMMATURE GRANULOCYTE % (test code = IG%) 1.7 % 0.0-2.0 N LYMPHOCYTE % (test code = LY%) 8.5 % 14.0-32.0 L MONOCYTE % (test code = MO%) 8.8 % 4.8-9.0 N EOSINOPHIL % (test code = EO%) 7.2 % 0.3-3.7 H BASOPHIL % (test code = BA%) 0.6 % 0.0-2.0 N NUCLEATED RBC % (test code = NRBC%) 0.0 % 0-0 N NEUTROPHIL # (test code = NT#) 9.05 x10 3/uL 2.0-7.6 H IMMATURE GRANULOCYTE # (test code = IG#) 0.21 x10 3/uL 0.00-0.03 H LYMPHOCYTE # (test code = LY#) 1.05 x10 3/uL 1.0-3.8 N MONOCYTE # (test code = MO#) 1.09 x10 3/uL 0.1-0.8 H EOSINOPHIL # (test code = EO#) 0.89 x10 3/uL 0.0-0.2 H BASOPHIL # (test code = BA#) 0.08 x10 3/uL 0.0-0.2 N NUCLEATED RBC # (test code = NRBC#) 0.00 x10 3/uL 0.0-0.1 N MANUAL DIFF REQUIRED (test c ode = MDIFF) NO - XR CHEST 1 [id number] 00:00:00 [facility] : 1940 Sex: M FAX:Radha Ward MD [phone] [place]: GC St: ADM FAX: [place] [phone] FAX: Sarbjit Sherman [phone] FAX: Gianna Carmona [phone] Name: SHERRI ARCE [facility] : 1940 Age/S: 81/M [address] [place] [address] Unit #: [id number] Loc: G.[address] [place] [address] Phys: Gianna Hoover LPA Acct: [id number] Dis Date: Status: ADM IN PHONE #: [phone] Exam Date: 07/18/2022 0559 FAX#: [phone] Reason: Post CV Surgery EXAMS: CPT CODE: [id number] XR CHEST 1 V [id number] PROCEDURE INFORMATION: Exam: XR Chest Exam date and time: 07/18/2022 5:14 AM Age: 81 years old Clinical indication: Other: Post cv surgery TECHNIQUE: Imaging protocol: Radiologic exam of the chest. Views: 1 view. COMPARISON: CR XR CHEST 1V 07/17/2022 5:12 AM FINDINGS: Tubes, catheters and devices: Right internal jugular hemodialysis catheter tip at the level of central SVC. Faintly opaque EKG leads and epicardialpacer leads overlie the chest. Lungs: Ill-defined opacities in the mid and lower lung zones are unch anged. The hemidiaphragms are obscured. Pleural spaces: There is no pneumothorax. Bilateral pleuraleffusions grossly stable allowing for differences in positioning on semi upright technique. Pleuralfluid/thickening extending over the left apex unchanged. Heart/Mediastinum: The cardiomediastinal si lhouette is stable. Bones/joints: Sternotomy wires are intact. IMPRESSION: 1. Stable postoperative chest. 2. Stable pulmonary opacities likely combination of atelectasis and airspace disease. 3. Stable pleural effusions. Stable loculated left pleural fluid and or thickening extending to the apex. at 0755 Reported and signed by: Babak Ratliff M.D. CC: Radha Ward MD; [place] DO; Sarbjit Mcarthur MD; Gianna LIZARRAGA Technologist: Ines Marley, (R) Trnndwaqas Date/Time/By: 07/18/2022 (0755) : By: [email or web address] Orig Print D/T: S: 07/18/2022 (0755) PAGE 1 Signed [id number] 04:11:00* Test Item Value Reference Range Interpretation Comme nts MAGNESIUM (test code = MAG) 2.00 mg/dL 1.80-2.40 N BASIC METABOLIC [id number] 03:54:00* Test Item Value Reference Range Interpretation Comme nts SODIUM (test code = NA) 143 mEq/L 134-147 N POTASSIUM (test code = K) 3.9 mEq/L 3.4-5.0 N CHLORIDE (test code = CL) 107 mEq/L 100-108 N CARBON DIOXIDE (test code = CO2) 29 mEq/l 21-33 N ANION GAP (test code = GAP) 11 0-20 N GLUCOSE (test code = GLU) 113 mg/dL 70-110 H BLOOD UREA NITROGEN (test code = BUN) 33 mg/dL 7-18 H GLOMERULAR FILTRATION RATE (test code = GFR) 17.0 70-80 L The Glomerular Filtration Rate is a calculated parameterbased on serum Creatinine, patient age and sex. GFR valuesless than 60 mL/min/1.73 square meters are indicative ofChronic Kidney Disease. Values less than 15 mL/min/1.73square meters indicate Kidney failure. The calculation forGFR is based on the CKD-EPI (2020) calculation. This formulais race indifferent and is the recommended formula for GFRby the National Kidney Foundation for Adults.The GFR will not calculate if the sex is unknown or if thepatient's age is <18 years. CREATININE (test code = CREAT) 3.5 mg/dL 0.6-1.3 H CALCIUM (test code = CA) 8.2 mg/dL 8.0-10.5 N CBC W/AUTO [id number] 03:36:00* Test Item Value Reference Range Interpretation Comme nts WHITE BLOOD CELL (test code = WBC) 11.0 x10 3/uL 4.5-11.0 N RED BLOOD CELL (test code = RBC) 2.81 x10 6/uL 4.00-5.60 L HEMOGLOBIN (test code = HGB) 8.3 g/dL 12.5-16.9 L HEMATOCRIT (test code = HCT) 26.6 % 37.5-50.7 L MEAN CELL VOLUME (test code = MCV) 94.7 fL 81.0-99.0 N MEAN CELL HGB (test code = MCH) 29.5 pg 27.0-33.0 N MEAN CELL HGB CONCETRATION (test code = MCHC) 31.2 g/dL 33.0-37.0 L RED CELL DISTRIBUTION WIDTH CV (test code = RDW) 16.1 % 11.5-14.5 H RED CELL DISTRIBUTION WIDTH SD (test code = RDW-SD) 55.4 fL 37.0-54.0 H PLATELET COUNT (test code = PLT) 321 x10 3/uL 150-400 N MEAN PLATELET VOLUME (test c ode = MPV) 10.1 fL 7.0-9.0 H NEUTROPHIL % (test code = NT%) 71.6 % 56.0-77.0 N IMMATURE GRANULOCYTE % (test code = IG%) 2.8 % 0.0-2.0 H LYMPHOCYTE % (test code = LY%) 7.2 % 14.0-32.0 L MONOCYTE % (test code = MO%) 11.0 % 4.8-9.0 H EOSINOPHIL % (test code = EO%) 6.8 % 0.3-3.7 H BASOPHIL % (test code = BA%) 0.6 % 0.0-2.0 N NUCLEATED RBC % (test code = NRBC%) 0.0 % 0-0 N NEUTROPHIL # (test code = NT#) 7.90 x10 3/uL 2.0-7.6 H IMMATURE GRANULOCYTE # (test code = IG#) 0.31 x10 3/uL 0.00-0.03 H LYMPHOCYTE # (test code = LY#) 0.80 x10 3/uL 1.0-3.8 L MONOCYTE # (test code = MO#) 1.21 x10 3/uL 0.1-0.8 H EOSINOPHIL # (test code = EO#) 0.75 x10 3/uL 0.0-0.2 H BASOPHIL # (test code = BA#) 0.07 x10 3/uL 0.0-0.2 N NUCLEATED RBC # (test code = NRBC#) 0.00 x10 3/uL 0.0-0.1 N MANUAL DIFF REQUIRED (test c ode = BLAZE) NO - DUP VEIN [id number] 00:00:00 [facility] : 1940 Sex: M Name:SHERRI ARCE [facility] [place] : 1940 Age/S: 81 / M [address] [place] [address] Unit #: [id number]: [place] [address] Phys: Jana Mittal MD Acct: [id number] Dis Date: Status: ADM IN PHONE #: [phone] Exam Date: 07/17/2022 1519 FAX #: [phone] Reason: POST OP DVT PROPHYLAXIS EXAMS: CPT CODE: [id number] DUP VEIN WOJCIECH 17298 PROCEDURE INFORMATION: Exam: US Duplex Lower Extremity Veins, Bilateral Exam date and time: 07/17/2022 2:25 PM [...] femoral, femoral, proximal profunda femoral and popliteal veinsare patent without thrombus. Normal Doppler waveforms. Normal [...] flow or peripheral hyperemia measuring 4.2 x 1.4x 2.3 cm which may represent a hematoma. at 1545 Reported and signed by: Delmer Palma M.D. CC: Radha Ward MD; [place] DO; Jana Mittal MD; Sarbjit Mcarthur MD Technologist: Alyson Coleman RDMS(AB) Trnscb Date/Time:07/17/2022 (1545) [email or web address] Orig Print D/T: S: 07/17/2022 (1545) Probe: PAGE 1 Signed Report- XR CHEST 1 [id number] 00:00:00 [facility] 1940 Sex: M FAX: Radha Ward MD [phone] [place]: St: [facility] FAX: [place] [phone] FAX: Willi August MD [phone] FAX: Sarbjit Sherman [phone] Name: SHERRI ARCE [facility] [place] : 1940 Age/S: 81/M [address] [place] [address] Unit #: [id number] Loc: [address] [address] Phys: Willi August MD Acct: [id number] Dis Date: Status: ADM IN PHONE #: [phone] Exam Date: 07/17/202254 FAX #: [phone] Reason: S/P CABG X 5 EXAMS: CPT CODE: [id number] XR CHEST 1 V 17485 PROCEDURE INFORMATION: Exam: XR Chest Exam date and time: 07/17/2022 5:12 AM Age: 81 years old Clinical indication: Other: S/P cabg x 5 TECHNIQUE: Imaging protocol: Radiologic exam of the chest. Views: 1 view. COMPARISON: 1. CR XR CHEST 1V 07/16/2022 9:31 AM 2. CR XR CHEST 1V 07/16/2022 4:51 AM FINDINGS: Tubes, catheters anddevices: Right internal jugular hemodialysis catheter tip at [...] for differences in positioning on semi upright joan hnique. There is no pneumothorax. Heart/Mediastinum: The cardiomediastinal [...] DO; Willi August MD; Sarbjit Mcarthur MD Technologist:Iban Jacob RT(R) Trnscrd Date/Time/By: 07/17/2022 (0756) : By: [email or web address] Orig Print D/T: S: 07/17/2022 (0757) PAGE 1 Signed [id number] 04:39:00 * Test Item Value Reference Range Interpretation Comme nts MAGNESIUM (test code = MAG) 2.10 mg/dL 1.80-2.40 N BASIC METABOLIC [id number] 03:57:00* Test Item Value Reference Range Interpretation Comme nts SODIUM (test code = NA) 143 mEq/L 134-147 N POTASSIUM (test code = K) 4.3 mEq/L 3.4-5.0 N CHLORIDE (test code = CL) 105 mEq/L 100-108 N CARBON DIOXIDE (test code = CO2) 29 mEq/l 21-33 N ANION GAP (test code = GAP) 13 0-20 N GLUCOSE (test code = GLU) 97 mg/dL 70-110 N BLOOD UREA NITROGEN (test code = BUN) 43 mg/dL 7-18 H GLOMERULAR FILTRATION RATE (test code = GFR) 14.5 70-80 L The Glomerular Filtration Rate is a calculated parameterbased on serum Creatinine, patient age and sex. GFR valuesless than 60 mL/min/1.73 square meters are indicative ofChronic Kidney Disease. Values less than 15 mL/min/1.73square meters indicate Kidney failure. The calculation forGFR is based on the CKD-EPI (2020) calculation. This formulais race indifferent and is the recommended formula for GFRby the National Kidney Foundation for Adults.The GFR will not calculate if the sex is unknown or if thepatient's age is <18 years. CREATININE (test code = CREAT) 4.0 mg/dL 0.6-1.3 H CALCIUM (test code = CA) 8.4 mg/dL 8.0-10.5 N CBC W/AUTO [id number] 03:37:00* Test Item Value Reference Range Interpretation Comme nts WHITE BLOOD CELL (test code = WBC) 10.8 x10 3/uL 4.5-11.0 N RED BLOOD CELL (test code = RBC) 2.73 x10 6/uL 4.00-5.60 L HEMOGLOBIN (test code = HGB) 8.2 g/dL 12.5-16.9 L HEMATOCRIT (test code = HCT) 25.6 % 37.5-50.7 L MEAN CELL VOLUME (test code = MCV) 93.8 fL 81.0-99.0 N MEAN CELL HGB (test code = MCH) 30.0 pg 27.0-33.0 N MEAN CELL HGB CONCETRATION (test code = MCHC) 32.0 g/dL 33.0-37.0 L RED CELL DISTRIBUTION WIDTH CV (test code = RDW) 16.1 % 11.5-14.5 H RED CELL DISTRIBUTION WIDTH SD (test code = RDW-SD) 54.6 fL 37.0-54.0 H PLATELET COUNT (test code = PLT) 282 x10 3/uL 150-400 N MEAN PLATELET VOLUME (test c ode = MPV) 10.7 fL 7.0-9.0 H NEUTROPHIL % (test code = NT%) 70.2 % 56.0-77.0 N IMMATURE GRANULOCYTE % (test code = IG%) 2.9 % 0.0-2.0 H LYMPHOCYTE % (test code = LY%) 7.1 % 14.0-32.0 L MONOCYTE % (test code = MO%) 12.2 % 4.8-9.0 H EOSINOPHIL % (test code = EO%) 6.9 % 0.3-3.7 H BASOPHIL % (test code = BA%) 0.7 % 0.0-2.0 N NUCLEATED RBC % (test code = NRBC%) 0.0 % 0-0 N NEUTROPHIL # (test code = NT#) 7.58 x10 3/uL 2.0-7.6 N IMMATURE GRANULOCYTE # (test code = IG#) 0.31 x10 3/uL 0.00-0.03 H LYMPHOCYTE # (test code = LY#) 0.77 x10 3/uL 1.0-3.8 L MONOCYTE # (test code = MO#) 1.32 x10 3/uL 0.1-0.8 H EOSINOPHIL # (test code = EO#) 0.75 x10 3/uL 0.0-0.2 H BASOPHIL # (test code = BA#) 0.08 x10 3/uL 0.0-0.2 N NUCLEATED RBC # (test code = NRBC#) 0.00 x10 3/uL 0.0-0.1 N MANUAL DIFF REQUIRED (test c ode = MDIFF) NO - XR CHEST 1 [id number] 00:00:00 [facility] : 1940 Sex: M FAX:Radha Ward MD [phone] [place]: St: [facility] FAX: [place] Crawford [phone] FAX: Jana Mittal MD FAX: Sarbjit Sherman [phone] Name: YAZMIN,SHERRI [facility] : 1940 Age/S: 81/M [address] [place] [address] Unit #: [id number] Loc: [id number] [place] [address] Phys: Jana Mittal MD Acct: [id number] Dis Date: Status: ADM IN PHONE #: [phone] Exam Date: 07/16/2022 1055 FAX #: [phone]: REASSESS PNEUMOTHORAX EXAMS: CPT CODE: [id number] XR CHEST 1 V 31069 PROCEDURE INFORMATION:Exam: XR Chest Exam date and time: 07/16/2022 9:31 AM Age: 81 years old Clinical indication: Pre-opera tive exam; Respiratory screening exam; Additional info: Reassess pneumothorax TECHNIQUE: Imaging protocol: Radiologic exam of the chest. Views: 1 view. COMPARISON: CR XR CHEST 1V 07/16/2022 4:51 AM FINDINGS: Tubes, catheters and devices: Right IJ catheter terminating at the cavoatrial junction. Left chest tube present. Lungs: Stable bibasilar airspace disease. Pleural spaces: Small left and stablesmall right layering pleural effusion. No pneumothorax. Heart/Mediastinum: Unchanged enlargement ofthe cardiomediastinal silhouette. Bones/joints: Intact median sternotomy wires. IMPRESSION: 1. Small left and stable small right layering pleural effusion. 2. Left chest tube present. No pneumothorax. 3. Stable bibasilar airspace opacities at 1158 Reported and signed by: Som Enriquez M.D. CC: Radha Ward MD; [place] DO; Jana Mittal MD; Sarbjit Mcarthur MD Technologist: RT Jeff(R) Trnscrd Da te/Time/By: 07/16/2022 (1158) : By: [email or web address] Orig Print D/T: S: 07/16/2022 (6378) PAGE 1 Signed Report- XR CHEST 1 [id number] 00:00:00 [facility] : 1940 Sex: M FAX: Radha Ward MD [phone] [place]: St: ADM FAX: [place] Crawford [phone] FAX: Willi August MD [phone] FAX: Terri McarthurSarbjit Larry Mario [phone] Name: SHERRI ARCE [facility] : 1940 Age/S: 81/M [address] [place] [address] Unit #: [id number] Loc: [address] [place] [id number] Phys: Willi August MD Acct: [id number] Dis Date: Status: ADM IN PHONE #: [phone] Exam Date: 07/16/2022 0500 FAX #: [phone] Reason: SP CABG EXAMS: CPT CODE: [id number] XR CHEST 1 V [id number] PROCEDURE INFORMATION: Exam: XR Chest Exam date and time: 07/16/2022 4:51 AM Age: 81 years old Clinical indication: Other: S/P cabg; Additional info: Sp cabg TECHNIQUE: Imaging protocol: Radiologic [...] left basilar chest tube. Otherwise, stable exam. at 0710 Reported and signed by: Ranjan Sesay M.D. CC: Radha Ward MD; [place] DO; Willi August MD; Sarbjit Louise Technologist: RT Campbell (R) Trnscrd Date/Time/By: 07/16/2022 (709) : By: [email or web address] Orig Print D/T: S: 07/16/2022 (94) PAGE 1 Signed [id number] 18:16:00* Test Item Value Reference Range Interpretation Comme nts MAGNESIUM (test code = MAG) 2.39 mg/dL 1.80-2.40 N BASIC METABOLIC [id number] 17:44:00* Test Item Value Reference Range Interpretation Comme nts SODIUM (test code = NA) 138 mEq/L 134-147 N POTASSIUM (test code = K) 5.1 mEq/L 3.4-5.0 H CHLORIDE (test code = CL) 103 mEq/L 100-108 N CARBON DIOXIDE (test code = CO2) 24 mEq/l 21-33 N ANION GAP (test code = GAP) 16 0-20 N GLUCOSE (test code = GLU) 102 mg/dL 70-110 N BLOOD UREA NITROGEN (test code = BUN) 78 mg/dL 7-18 H GLOMERULAR FILTRATION RATE (test code = GFR) 9.1 70-80 L The Glomerular Filtration Rate is a calculated parameterbased on serum Creatinine, patient age and sex. GFR valuesless than 60 mL/min/1.73 square meters are indicative ofChronic Kidney Disease. Values less than 15 mL/min/1.73square meters indicate Kidney failure. The calculation forGFR is based on the CKD-EPI (2020) calculation. This formulais race indifferent and is the recommended formula for GFRby the National Kidney Foundation for Adults.The GFR will not calculate if the sex is unknown or if thepatient's age is <18 years. CREATININE (test code = CREAT) 5.9 mg/dL 0.6-1.3 H CALCIUM (test code = CA) 8.5 mg/dL 8.0-10.5 N BASIC METABOLIC [id number] 04:55:00* Test Item Value Reference Range Interpretation Comme nts SODIUM (test code = NA) 138 mEq/L 134-147 N POTASSIUM (test code = K) 5.2 mEq/L 3.4-5.0 H CHLORIDE (test code = CL) 105 mEq/L 100-108 N CARBON DIOXIDE (test code = CO2) 22 mEq/l 21-33 N ANION GAP (test code = GAP) 16 0-20 N GLUCOSE (test code = GLU) 82 mg/dL 70-110 BLOOD UREA NITROGEN (test code = BUN) 61 mg/dL 7-18 H GLOMERULAR FILTRATION RATE (test code = GFR) 9.7 70-80 L The Glomerular Filtration Rate is a calculated parameterbased on serum Creatinine, patient age and sex. GFR valuesless than 60 mL/min/1.73 square meters are indicative ofChronic Kidney Disease. Values less than 15 mL/min/1.73square meters indicate Kidney failure. The calculation forGFR is based on the CKD-EPI (2020) calculation. This formulais race indifferent and is the recommended formula for GFRby the National Kidney Foundation for Adults.The GFR will not calculate if the sex is unknown or if thepatient's age is <18 years. CREATININE (test code = CREAT) 5.6 mg/dL 0.6-1.3 H CALCIUM (test code = CA) 8.1 mg/dL 8.0-10.5 N [id number] 04:30:00* Test Item Value Reference Range Interpretation Comme nts MAGNESIUM (test code = MAG) 2.36 mg/dL 1.80-2.40 N CBC W/AUTO [id number] 04:16:00* Test Item Value Reference Range Interpretation Comme nts WHITE BLOOD CELL (test code = WBC) 14.4 x10 3/uL 4.5-11.0 H RED BLOOD CELL (test code = RBC) 2.85 x10 6/uL 4.00-5.60 L HEMOGLOBIN (test code = HGB) 8.6 g/dL 12.5-16.9 L HEMATOCRIT (test code = HCT) 26.7 % 37.5-50.7 L MEAN CELL VOLUME (test code = MCV) 93.7 fL 81.0-99.0 N MEAN CELL HGB (test code = MCH) 30.2 pg 27.0-33.0 N MEAN CELL HGB CONCETRATION (test code = MCHC) 32.2 g/dL 33.0-37.0 L RED CELL DISTRIBUTION WIDTH CV (test code = RDW) 16.2 % 11.5-14.5 H RED CELL DISTRIBUTION WIDTH SD (test code = RDW-SD) 55.2 fL 37.0-54.0 H PLATELET COUNT (test code = PLT) 250 x10 3/uL 150-400 N MEAN PLATELET VOLUME (test code = MPV) 10.9 fL 7.0-9.0 H NEUTROPHIL % (test code = NT%) 75.0 % 56.0-77.0 N IMMATURE GRANULOCYTE % (test code = IG%) 2.2 % 0.0-2.0 H LYMPHOCYTE % (test code = LY%) 5.4 % 14.0-32.0 L MONOCYTE % (test code = MO%) 10.3 % 4.8-9.0 H EOSINOPHIL % (test code = EO%) 6.3 % 0.3-3.7 H BASOPHIL % (test code = BA%) 0.8 % 0.0-2.0 N NUCLEATED RBC % (test code = NRBC%) 0.0 % 0-0 N NEUTROPHIL # (test code = NT#) 10.83 x10 3/uL 2.0-7.6 H IMMATURE GRANULOCYTE # (test code = IG#) 0.32 x10 3/uL 0.00-0.03 H LYMPHOCYTE # (test code = LY#) 0.78 x10 3/uL 1.0-3.8 L MONOCYTE # (test code = MO#) 1.48 x10 3/uL 0.1-0.8 H EOSINOPHIL # (test code = EO#) 0.91 x10 3/uL 0.0-0.2 H BASOPHIL # (test code = BA#) 0.11 x10 3/uL 0.0-0.2 N NUCLEATED RBC # (test code = NRBC#) 0.00 x10 3/uL 0.0-0.1 N MANUAL DIFF REQUIRED (test code = MDIFF) NO - XR CHEST 1 [id number] 00:00:00 [facility] : 1940 Sex: M FAX:Radha Ward MD [phone] [place]: St: ADM FAX: [place] [phone] FAX: Jana Mittal MD FAX: Sarbjit Sherman [phone] Name: SHERRI ARCE [facility] [place] : 1940 Age/S: 81/M [address] [place] [address] Unit #: [id number] Loc: [address] [place] [address] Phys: Jana Mittal MD Acct: [id number] Dis Date: Status: ADM IN PHONE #: [phone] Exam Date: 07/15/2022 1710 FAX #: [phone] Reason: TUNNELED DIALYSIS CATHETER PLACEMENT EXAMS: CPT CODE: [id number] XR CHEST 1 V 25131 PROCEDURE INFORMATION: Exam: XR Chest Exam date and time: 07/15/2022 4:54 PM Age: 81 years old Clinical indic ation: Screening exam; Other screening; Additional info: Tunneled [...] no discrete pneumothorax. Heart/Mediastinum: Cardiac silhouette remains enlarged.Trace amount of pneumomediastinum is again seen. Bones/joints: Median sternotomy wires are seen. IMPRESSION: Placement of right internal jugular central line with tip in the SVC. at 1841 Reported and signed by: Ranjan Boo M.D. CC: Radha Ward MD; [place] Crawford DO; Jana Mittal MD; Sarbjit Mcarthur MD Technologist: RT Mary(R) Trnscrd Date/Time/By: 07/15/2022 (1840) : By: HeidyL Orig Print D/T: S: 07/15/2022 (1840) PAGE 1 Signed Report- XR CHEST 1 [id number] 00:00:00[facility] : 1940 Sex: M FAX: Radha Ward MD [phone] [place]: St: [facility] FAX: [place] [phone] FAX: Edwardo Flannery MD [phone] FAX: Sarbjit Sherman [phone] Name: SHERRI ARCE [facility] : 1940 Age/S: 81/M [address] [place] [address] Unit #: [id number] Loc: [place] [address] Phys: Edwardo Flannery MD Acct:[id number] Dis Date: Status: ADM IN PHONE #: [phone] Exam Date: 07/15/2022 06 FAX #: [phone] Reason: FOLLOW UP EXAMS: CPT CODE: [id number] XR CHEST 1 V 66971 PROCEDURE INFORMATION: Exam: XR Chest Exam date [...] pleural effusions. Bibasilar airspace opacities, mildly worsened. Electronically Signed by Ingrid Schmidt on 12/2022 at 0727 Reported and signed by: Sree Schmidt M.D. CC: Radha Ward MD; Los Crawford DO; Edwardo Flannery MD; Sarbjit Mcarthur MD Technologist: Iban Jacob RT(R) Trnscrd Date/Time/By: 07/15/2022 (726) : By: [email or web address] Orig Print D/T: S: 07/15/2022 (726) PAGE 1 Signed ReportBASIC METABOLIC [id number] 20:44:00* Test Item Value Reference Range Interpretation Comme nts SODIUM (test code = NA) 137 mEq/L 134-147 N POTASSIUM (test code = K) 5.1 mEq/L 3.4-5.0 H CHLORIDE (test code = CL) 104 mEq/L 100-108 N CARBON DIOXIDE (test code = CO2) 24 mEq/l 21-33 N ANION GAP (test code = GAP) 14 0-20 N GLUCOSE (test code = GLU) 124 mg/dL 70-110 H BLOOD UREA NITROGEN (test code = BUN) 69 mg/dL 7-18 H GLOMERULAR FILTRATION RATE (test code = GFR) 10.1 70-80 L The Glomerular Filtration Rate is a calculated parameterbased on serum Creatinine, patient age and sex. GFR valuesless than 60 mL/min/1.73 square meters are indicative ofChronic Kidney Disease. Values less than 15 mL/min/1.73square meters indicate Kidney failure. The calculation forGFR is based on the CKD-EPI (2020) calculation. This formulais race indifferent and is the recommended formula for GFRby the National Kidney Foundation for Adults.The GFR will not calculate if the sex is unknown or if thepatient's age is <18 years. CREATININE (test code = CREAT) 5.4 mg/dL 0.6-1.3 H CALCIUM (test code = CA) 8.2 mg/dL 8.0-10.5 N BASIC METABOLIC [id number] 11:22:00* Test Item Value Reference Range Interpretation Comme nts SODIUM (test code = NA) 133 mEq/L 134-147 L POTASSIUM (test code = K) 4.8 mEq/L 3.4-5.0 N CHLORIDE (test code = CL) 101 mEq/L 100-108 N CARBON DIOXIDE (test code = CO2) 21 mEq/l 21-33 N ANION GAP (test code = GAP) 15 0-20 N GLUCOSE (test code = GLU) 126 mg/dL 70-110 H BLOOD UREA NITROGEN (test code = BUN) 51 mg/dL 7-18 H GLOMERULAR FILTRATION RATE (test code = GFR) 10.1 70-80 L The Glomerular Filtration Rate is a calculated parameterbased on serum Creatinine, patient age and sex. GFR valuesless than 60 mL/min/1.73 square meters are indicative ofChronic Kidney Disease. Values less than 15 mL/min/1.73square meters indicate Kidney failure. The calculation forGFR is based on the CKD-EPI (2020) calculation. This formulais race indifferent and is the recommended formula for GFRby the National Kidney Foundation for Adults.The GFR will not calculate if the sex is unknown or if thepatient's age is <18 years. CREATININE (test code = CREAT) 5.4 mg/dL 0.6-1.3 H CALCIUM (test code = CA) 8.4 mg/dL 8.0-10.5 N BASIC METABOLIC [id number] 04:19:00* Test Item Value Reference Range Interpretation Comme nts SODIUM (test code = NA) 137 mEq/L 134-147 N POTASSIUM (test code = K) 5.1 mEq/L 3.4-5.0 H CHLORIDE (test code = CL) 104 mEq/L 100-108 N CARBON DIOXIDE (test code = CO2) 22 mEq/l 21-33 N ANION GAP (test code = GAP) 16 0-20 N GLUCOSE (test code = GLU) 92 mg/dL 70-110 N BLOOD UREA NITROGEN (test code = BUN) 48 mg/dL 7-18 H GLOMERULAR FILTRATION RATE (test code = GFR) 11.7 70-80 L The Glomerular Filtration Rate is a calculated parameterbased on serum Creatinine, patient age and sex. GFR valuesless than 60 mL/min/1.73 square meters are indicative ofChronic Kidney Disease. Values less than 15 mL/min/1.73square meters indicate Kidney failure. The calculation forGFR is based on the CKD-EPI (2021) calculation. This formulais race indifferent and is the recommended formula for GFRby the National Kidney Foundation for Adults.The GFR will not calculate if the sex is unknown or if thepatient's age is <18 years. CREATININE (test code = CREAT) 4.8 mg/dL 0.6-1.3 H CALCIUM (test code = CA) 8.5 mg/dL 8.0-10.5 N [id number] 04:19:00* Test Item Value Reference Range Interpretation Comme nts MAGNESIUM (test code = MAG) 2.40 mg/dL 1.80-2.40 N CBC W/AUTO [id number] 04:05:00* Test Item Value Reference Range Interpretation Comme nts WHITE BLOOD CELL (test code = WBC) 13.0 x10 3/uL 4.5-11.0 H RED BLOOD CELL (test code = RBC) 2.82 x10 6/uL 4.00-5.60 L HEMOGLOBIN (test code = HGB) 8.3 g/dL 12.5-16.9 L HEMATOCRIT (test code = HCT) 26.2 % 37.5-50.7 L MEAN CELL VOLUME (test code = MCV) 92.9 fL 81.0-99.0 N MEAN CELL HGB (test code = MCH) 29.4 pg 27.0-33.0 N MEAN CELL HGB CONCETRATION (test code = MCHC) 31.7 g/dL 33.0-37.0 L RED CELL DISTRIBUTION WIDTH CV (test code = RDW) 16.4 % 11.5-14.5 H RED CELL DISTRIBUTION WIDTH SD (test code = RDW-SD) 55.8 fL 37.0-54.0 H PLATELET COUNT (test code = PLT) 204 x10 3/uL 150-400 N MEAN PLATELET VOLUME (test c ode = MPV) 10.8 fL 7.0-9.0 H NEUTROPHIL % (test code = NT%) 75.4 % 56.0-77.0 N IMMATURE GRANULOCYTE % (test code = IG%) 1.8 % 0.0-2.0 N LYMPHOCYTE % (test code = LY%) 5.1 % 14.0-32.0 L MONOCYTE % (test code = MO%) 10.1 % 4.8-9.0 H EOSINOPHIL % (test code = EO%) 7.1 % 0.3-3.7 H BASOPHIL % (test code = BA%) 0.5 % 0.0-2.0 N NUCLEATED RBC % (test code = NRBC%) 0.0 % 0-0 N NEUTROPHIL # (test code = NT#) 9.80 x10 3/uL 2.0-7.6 H IMMATURE GRANULOCYTE # (test code = IG#) 0.24 x10 3/uL 0.00-0.03 H LYMPHOCYTE # (test code = LY#) 0.67 x10 3/uL 1.0-3.8 L MONOCYTE # (test code = MO#) 1.32 x10 3/uL 0.1-0.8 H EOSINOPHIL # (test code = EO#) 0.92 x10 3/uL 0.0-0.2 H BASOPHIL # (test code = BA#) 0.07 x10 3/uL 0.0-0.2 N NUCLEATED RBC # (test code = NRBC#) 0.00 x10 3/uL 0.0-0.1 N MANUAL DIFF REQUIRED (test c ode = BLAZE) NO - XR CHEST 1 [id number] 00:00:00 [facility] : 1940 Sex: M FAX: Radha Ward MD [phone] [place]: St: ADM FAX: [place] [phone] FAX: Jana Mittal MD FAX: Sarbjit Sherman [phone] Name: SHERRI ARCE [facility] : 1940 Age/S: 81/M [address] [place] [address] Unit #: [id number] Loc: [address] [address] Phys: Jana Mittal MD Acct: [id number] Dis Date: Status: ADM IN PHONE #: [phone] Exam Date: 07/14/2022 1411 FAX #: [phone] Reason: CHEST TUBE PLACEMENT EXAMS: CPT CODE: [id number] XR CHEST 1 V 02514 PROCEDURE INFORMATION: Exam: XR Chest Exam date and time: 07/14/2022 2:07 PM Age: 81 years old Clinical indication: Device p lacement; Chest tube; Additional info: Chest tube placement TECHNIQUE: Imaging protocol: Radiologicexam of the chest. Views: 1 view. COMPARISON: CR XR CHEST 1V 07/14/2022 6:26 AM FINDINGS: Lungs: The other lung opacities are stable. Pleural spaces: Decreased size of left pneumothorax, now small involving 10% volume. Placement of left chest tube near the apex. Stable left basilar chest tube. Small left pleural effusion is probably present, stable. There could be a right pleural effusion, stable.Heart/Mediastinum: Stable heart size. Vasculature: Atherosclerotic calcifications. Bones/joints: Stable. Median sternotomy wires. IMPRESSION: Interval placement of left chest tube near the apex with decreased size of left pneumothorax now small. Otherwise, stable exam. at 8470 Reported and signed by: Ranjan Sesay M.D. CC: Radha Ward MD; [place] Crawford DO; Jana Mittal MD; Sarbjit Mcarthur MD Technologist: RT Rubina(R) Trnscrd Date/Time/By: 07/14/2022 (1500) : By: [email or web address] Orig Print D/T: S: 07/14/2022 (4949) PAGE 1 Signed Report- CT GUID NDL PLCMT (Biopsy/Asp)2022-07-14 00:00:00 [facility] : 1940 Sex: M Name:SHERRI ARCE [facility] : 1940 Age/S: 81 / M [address] [place] [address] Unit #: [id number]: [place] [address] Phys: Gianna Hoover Acct: [id number] Dis Date: Status: ADM IN PHONE #: [phone] Exam Date: 07/14/2022 150 FAX #: [phone] Reason: Left Pneumothorax- pigtail cath placement EXAMS: CPT CODE: [id number] CT GUID NDL [facility] (Biopsy/Asp) 27458 PROCEDURE INFORMATION: Exam: IR Thoracentesis, Aspiration With [...] INFO: Consent: The risks, benefits and alternatives ofthe procedure were discussed prior to the procedure. [...] hospital nurse, an independent trained observer. The nursepushed medications at might erection and monitored patient's [...] 1 Signed Report (CONTINUED) Name: SHERRI ARCE [facility] [place] : 1940 Age/S: 81 / M [address] [place] [address] Unit #: [id number] Loc: [place] [address] Phys: Gianna Hoover Acct: [id number] Dis Date: Status: ADM IN PHONE #: [phone] Exam Date: 07/14/2022 1509 FAX #: [phone] Reason: Left Pneumothorax- pigtail cath p lacement EXAMS: CPT CODE: [id number] CT GUID NDL PLCMT (Biopsy/Asp) 20866 (Continued) usual sterile fashion and satisfactory anesthesia was obtained with 1% local lidocaine and IV fentanyl. An 18 gauge Chiba needle was then introduced into the pneumothorax through a left anterior superior approach and good position was confirmed with repeat CT imaging and aspiration of air. A wire was then advanced into the left pleural cavity and the tract was dilated to 8 Icelandic. An 8.5 Icelandic pigtail catheterwas then placed. The catheter was then connected [...] Radha Ward MD; [place] Crawford DO; Sarbjit Jara MD; Gianna LIZARRAGA Technologist:RT Jalyn(R)(CT) CTDI: DLP: Trnscb Date/Time: 07/14/2022 (1225) [email or web address] Orig Print D/T: S: 07/14/2022 (6746) PAGE 2 Signed Report- XR CHEST 1 [id number] 00:00:00 [facility] : 1940 Sex: M FAX: Radha Ward MD [phone] [place]: St: [facility] FAX: [place] Crawford [phone] FAX: Ana Toribio [phone] FAX: Sarbjit Sherman [phone] Name: SHERRI ARCE [facility] : 1940 Age/S: 81/M [address] [place] [address] Unit #: [id number] Loc: [address] [place] [address] Phys: Rosalind Toribio [employer]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 Views: 1 view. COMPARISON: CR XR CHEST 1V 07/13/2022 6:51 AM FINDINGS: Tubes, catheters and devices: Left chest tube in place. Lungs: Persistent bibasilar airspace disease. Pleural spaces: Moderateleft apical pneumothorax , similar to prior radiograph. [...] (914) PAGE 1 Signed ReportPO ARTERIAL BLOOD [id number] 10:47:00* Test Item Value Reference Range Interpretation Comme nts POC ARTERIAL BLOOD GAS PH (t est code = POCPHA) 7.388 7.35-7.45 N POC ARTERIAL BLOOD GAS PCO2 (test code = [id number]) 31.6 mmHg 35.0-45 L POC TCO2 ARTERIAL (test code = POCTCO2) 20.0 POC ARTERIAL BLOOD GAS PO2 ( test code = IFXEL4J) 80.5 mmHg 80-100.0 N POC HCO3 ARTERIAL (test code = ZHBRUE3D) 19.0 MMOL/L 22.0-26.0 L POC BASE EXCESS (test code = POCBEA) -5.9 MMOL/L -4.0-4.0 L POC O2 SATURATION (test code = POCO2S) 95.9 % 90-100 N ABG DELIVERY (test code = JH) Room Air BASIC METABOLIC [id number] 10:47:00* Test Item Value Reference Range Interpretation Comme nts SODIUM (test code = NA/ABG) 134 mmol/L 134-147 N POTASSIUM (test code = K/ABG) 4.4 mmol/L 3.4-5.0 N CHLORIDE (test code = CL/ABG) 104 mmol/L 100-108 N CREATININE ABG (test code = CREAABG) 4.4 mg/dL 0.8-1.3 H POC IONIZED CALCIUM (test co de = POCCA) 1.11 MMOL/L 1.12-1.32 L POC GLUCOSE (test code = POCGLU) 137 MG/DL 70-110 H HEMOGLOBIN [id number] 10:47:00* Test Item Value Reference Range Interpretation Comme nts HEMOGLOBIN ABG (test code = HGB/ABG) 9.0 G/DL 12.5-16.9 L [id number] 10:47:00* Test Item Value Reference Range Interpretation Comme nts HEMATOCRIT (test code = HCT/ABG) 26 % 37.5-50.7 L POC LACTIC [id number] 10:47:00* Test Item Value Reference Range Interpretation Comme nts POC LACTIC ACID (test code = POCLAC) 1.8 mmol/l 0.9-1.7 H POC ARTERIAL BLOOD [id number] 03:26:00* Test Item Value Reference Range Interpretation Comme nts POC ARTERIAL BLOOD GAS PH (t est code = POCPHA) 7.415 7.35-7.45 N POC ARTERIAL BLOOD GAS PCO2 (test code = LSRNMU0X) 35.4 mmHg 35.0-45 N POC TCO2 ARTERIAL (test code = POCTCO2) 23.8 POC ARTERIAL BLOOD GAS PO2 ( test code = MVPIW2S) 68.5 mmHg 80-100.0 L POC HCO3 ARTERIAL (test code = SNDSYH1P) 22.7 MMOL/L 22.0-26.0 N POC BASE EXCESS (test code = POCBEA) -1.9 MMOL/L -4.0-4.0 N POC O2 SATURATION (test code = POCO2S) 93.8 % 90-100 N FIO2 (test code = FIO2A) 32 % PaO2/FiO2 (test code = XLZ4LGS7) 214.06 mm/Hg ABG DELIVERY (test code = JH) Cannula ABG SITE (test code = SITEA) Art Line BASIC METABOLIC [id number] 03:26:00* Test Item Value Reference Range Interpretation Comme nts SODIUM (test code = NA/ABG) 132 mmol/L 134-147 L POTASSIUM (test code = K/ABG) 4.7 mmol/L 3.4-5.0 N CHLORIDE (test code = CL/ABG) 100 mmol/L 100-108 N CREATININE ABG (test code = CREAABG) 4.0 mg/dL 0.8-1.3 H POC IONIZED CALCIUM (test co de = POCCA) 1.13 MMOL/L 1.12-1.32 N POC GLUCOSE (test code = POCGLU) 84 MG/DL 70-110 N HEMOGLOBIN [id number] 03:26:00* Test Item Value Reference Range Interpretation Comme nts HEMOGLOBIN ABG (test code = HGB/ABG) 7.9 G/DL 12.5-16.9 L [id number] 03:26:00* Test Item Value Reference Range Interpretation Comme nts HEMATOCRIT (test code = HCT/ABG) 23 % 37.5-50.7 L POC LACTIC [id number] 03:26:00* Test Item Value Reference Range Interpretation Comme nts POC LACTIC ACID (test code = POCLAC) 0.6 mmol/l 0.9-1.7 L BASIC METABOLIC [id number] 03:25:00* Test Item Value Reference Range Interpretation Comme nts SODIUM (test code = NA) 134 mEq/L 134-147 N POTASSIUM (test code = K) 4.7 mEq/L 3.4-5.0 CHLORIDE (test code = CL) 102 mEq/L 100-108 N CARBON DIOXIDE (test code = CO2) 25 mEq/l 21-33 N ANION GAP (test code = GAP) 12 0-20 N GLUCOSE (test code = GLU) 87 mg/dL 70-110 N BLOOD UREA NITROGEN (test code = BUN) 49 mg/dL 7-18 H GLOMERULAR FILTRATION RATE (test code = GFR) 15.0 70-80 L The Glomerular Filtration Rate is a calculated parameterbased on serum Creatinine, patient age and sex. GFR valuesless than 60 mL/min/1.73 square meters are indicative ofChronic Kidney Disease. Values less than 15 mL/min/1.73square meters indicate Kidney failure. The calculation forGFR is based on the CKD-EPI (202) calculation. This formulais race indifferent and is the recommended formula for GFRby the National Kidney Foundation for Adults.The GFR will not calculate if the sex is unknown or if thepatient's age is <18 years. CREATININE (test code = CREAT) 3.9 mg/dL 0.6-1.3 H CALCIUM (test code = CA) 8.0 mg/dL 8.0-10.5 N [id number] 03:25:00* Test Item Value Reference Range Interpretation Comme nts MAGNESIUM (test code = MAG) 2.29 mg/dL 1.80-2.40 N CBC W/AUTO [id number] 03:12:00* Test Item Value Reference Range Interpretation Comme nts WHITE BLOOD CELL (test code = WBC) 13.2 x10 3/uL 4.5-11.0 H RED BLOOD CELL (test code = RBC) 2.61 x10 6/uL 4.00-5.60 L HEMOGLOBIN (test code = HGB) 7.8 g/dL 12.5-16.9 L HEMATOCRIT (test code = HCT) 24.2 % 37.5-50.7 L MEAN CELL VOLUME (test code = MCV) 92.7 fL 81.0-99.0 N MEAN CELL HGB (test code = MCH) 29.9 pg 27.0-33.0 N MEAN CELL HGB CONCETRATION (test code = MCHC) 32.2 g/dL 33.0-37.0 L RED CELL DISTRIBUTION WIDTH CV (test code = RDW) 16.5 % 11.5-14.5 H RED CELL DISTRIBUTION WIDTH SD (test code = RDW-SD) 56.2 fL 37.0-54.0 H PLATELET COUNT (test code = PLT) 160 x10 3/uL 150-400 N MEAN PLATELET VOLUME (test code = MPV) 10.9 fL 7.0-9.0 H NEUTROPHIL % (test code = NT%) 76.0 % 56.0-77.0 N IMMATURE GRANULOCYTE % (test code = IG%) 1.3 % 0.0-2.0 N LYMPHOCYTE % (test code = LY%) 7.0 % 14.0-32.0 L MONOCYTE % (test code = MO%) 8.8 % 4.8-9.0 N EOSINOPHIL % (test code = EO%) 6.4 % 0.3-3.7 H BASOPHIL % (test code = BA%) 0.5 % 0.0-2.0 N NUCLEATED RBC % (test code = NRBC%) 0.0 % 0-0 N NEUTROPHIL # (test code = NT#) 10.04 x10 3/uL 2.0-7.6 H IMMATURE GRANULOCYTE # (test code = IG#) 0.17 x10 3/uL 0.00-0.03 H LYMPHOCYTE # (test code = LY#) 0.93 x10 3/uL 1.0-3.8 L MONOCYTE # (test code = MO#) 1.17 x10 3/uL 0.1-0.8 H EOSINOPHIL # (test code = EO#) 0.85 x10 3/uL 0.0-0.2 H BASOPHIL # (test code = BA#) 0.07 x10 3/uL 0.0-0.2 N NUCLEATED RBC # (test code = NRBC#) 0.00 x10 3/uL 0.0-0.1 N MANUAL DIFF REQUIRED (test code = MDIFF) NO - XR CHEST 1 [id number] 00:00:00 [facility] 1940 Sex: M FAX: Radha Ward MD [phone] [place]: St: FAX: [place] [phone] FAX: Ana Toribio [phone] FAX: Sarbjit Sherman [phone] Name: SHERRI ARCE [facility] Pedro David : 1940 Age/S: 81/M [address] [place] [address] Bl Unit #: [id number] Loc: [place] [address] 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 Findings were discussed with Nurse Espinal at 07/13/2022 9:18 AM [employer]. at 0919 Reported and signed by: Delmer [...] Signed Report (CONTINUED) FAX: Radha Ward MD [phone] [place]: GC St: ADM FAX: [place] [phone] FAX: Ana Toribio [phone] FAX: Sarbjit Sherman [phone] Name: SHERRI ARCE [facility] : 1940 Age/S: 81/M [address] [place] [address] Unit #: [id number] Loc: [place] [address] Phys: Rosalind Puentes NP Acct: [id number] Dis Date: Status: ADM IN PHONE #: [phone] Exam Date: 07/13/2022 0652 FAX #: [phone] Reason: Cardiac Surgery Post Op Report Has Been Amended EXAMS: CPT CODE: [id number] XR CHEST 1 V 91845 (Continued) at 0915 Reported and signed by: Delmer Palma M.D. CC: Radha Ward MD; [place] DO; Rosalind Toribio NP; Sarbjit Mcarthur MD Technologist: Isidro Jarquin; Elaina Reeves, (R) Trnscrd Date/Time/By: 07/13/2022 (914) : By: [email or web address] Orig Print D/T: S: 07/13/2022 (914) PAGE 2 Signed Report- RETRO [id number] 00:00:00 [facility] : 1940 Sex: M Name:SHERRI ARCE [facility] : 1940 Age/S: 81 / M [address] [place] [address] Unit #: [id number] Loc: [place] [address] Phys: Evelina Plaza MD Acct: [id number] Dis Date: Status: ADM IN PHONE #: [phone] Exam Date: 07/12/2022 1624 FAX #: [phone] Reason: hydronephrosis EXAMS: CPT CODE: [id number] US RETRO LTD 22267 PROCEDURE INFORMATION: Exam: US Retroperitoneal Limited. Exam date and time: 07/12/2022 4:03 PM Age: 81 years old Clinical indication: Condition or disease; Kidney or ureter condition; Hydronephrosis TECHNIQUE: Imaging protocol: Real-time ultrasound of the retroperitoneum with image documentation. COMPARISON: US RETRPERITONEAL COM 07/03/2022 11:22 AM FINDINGS: Right kidney: Mildly echogenic renal cortex. No stones. No hydronephrosis. Measures 10.5 cm in length. Leftkidney: Mildly echogenic renal cortex. No stones. Moderate hydronephrosis. Measures 12.6 cm in length. Urinary bladder: Decompressed around a Waters catheter. IMPRESSION: Moderate left hydronephrosis,appears slightly improved compared to prior exam. Findings suggestive of medical renal disease. at 0651 Reported and signed by: Delmer Palma M.D. CC: Evelina Plaza MD; Radha Ward MD; Los Crawford DO Technologist: Ailin Hernadez RDMS(Bud)(BR) Trnscb Date/Time: 07/13/2022 (0651) Humberto.AB53 PAGE 1 Signed ReportBASIC METABOLIC [id number] 12:25:00* Test Item Value Reference Range Interpretation Comme nts SODIUM (test code = NA) 137 mEq/L 134-147 N POTASSIUM (test code = K) 3.4 mEq/L 3.4-5.0 CHLORIDE (test code = CL) 102 mEq/L 100-108 N CARBON DIOXIDE (test code = CO2) 29 mEq/l 21-33 ANION GAP (test code = GAP) 9 0-20 N GLUCOSE (test code = GLU) 104 mg/dL 70-110 N BLOOD UREA NITROGEN (test code = BUN) 22 mg/dL 7-18 H GLOMERULAR FILTRATION RATE (test code = GFR) 31.4 70-80 L The Glomerular Filtration Rate is a calculated parameterbased on serum Creatinine, patient age and sex. GFR valuesless than 60 mL/min/1.73 square meters are indicative ofChronic Kidney Disease. Values less than 15 mL/min/1.73square meters indicate Kidney failure. The calculation forGFR is based on the CKD-EPI (2020) calculation. This formulais race indifferent and is the recommended formula for GFRby the National Kidney Foundation for Adults.The GFR will not calculate if the sex is unknown or if thepatient's age is <18 years. CREATININE (test code = CREAT) 2.1 mg/dL 0.6-1.3 H CALCIUM (test code = CA) 8.2 mg/dL 8.0-10.5 N [id number] 12:25:00* Test Item Value Reference Range Interpretation Comme nts MAGNESIUM (test code = MAG) 2.03 mg/dL 1.80-2.40 CALCIUM [id number] 12:25:00* Test Item Value Reference Range Interpretation Comme nts CALCIUM IONIZED (test code = ARVIN) 1.12 MMOL/L 1.09-1.30 N CBC W/AUTO [id number] 12:07:00* Test Item Value Reference Range Interpretation Comme nts WHITE BLOOD CELL (test code = WBC) 16.3 x10 3/uL 4.5-11.0 H RED BLOOD CELL (test code = RBC) 2.72 x10 6/uL 4.00-5.60 L HEMOGLOBIN (test code = HGB) 8.3 g/dL 12.5-16.9 L HEMATOCRIT (test code = HCT) 25.5 % 37.5-50.7 L MEAN CELL VOLUME (test code = MCV) 93.8 fL 81.0-99.0 N MEAN CELL HGB (test code = MCH) 30.5 pg 27.0-33.0 N MEAN CELL HGB CONCETRATION (test code = MCHC) 32.5 g/dL 33.0-37.0 L RED CELL DISTRIBUTION WIDTH CV (test code = RDW) 17.0 % 11.5-14.5 H RED CELL DISTRIBUTION WIDTH SD (test code = RDW-SD) 58.1 fL 37.0-54.0 H PLATELET COUNT (test code = PLT) 134 x10 3/uL 150-400 L MEAN PLATELET VOLUME (test code = MPV) 11.5 fL 7.0-9.0 H NEUTROPHIL % (test code = NT%) 85.0 % 56.0-77.0 H IMMATURE GRANULOCYTE % (test code = IG%) 1.3 % 0.0-2.0 N LYMPHOCYTE % (test code = LY%) 3.6 % 14.0-32.0 L MONOCYTE % (test code = MO%) 5.3 % 4.8-9.0 N EOSINOPHIL % (test code = EO%) 4.4 % 0.3-3.7 H BASOPHIL % (test code = BA%) 0.4 % 0.0-2.0 N NUCLEATED RBC % (test code = NRBC%) 0.0 % 0-0 N NEUTROPHIL # (test code = NT#) 13.83 x10 3/uL 2.0-7.6 H IMMATURE GRANULOCYTE # (test code = IG#) 0.21 x10 3/uL 0.00-0.03 H LYMPHOCYTE # (test code = LY#) 0.59 x10 3/uL 1.0-3.8 L MONOCYTE # (test code = MO#) 0.87 x10 3/uL 0.1-0.8 H EOSINOPHIL # (test code = EO#) 0.72 x10 3/uL 0.0-0.2 H BASOPHIL # (test code = BA#) 0.07 x10 3/uL 0.0-0.2 N NUCLEATED RBC # (test code = NRBC#) 0.00 x10 3/uL 0.0-0.1 N MANUAL DIFF REQUIRED (test code = MDIFF) NO BASIC METABOLIC [id number] 04:50:00* Test Item Value Reference Range Interpretation Comme nts SODIUM (test code = NA) 132 mEq/L 134-147 L POTASSIUM (test code = K) 5.4 mEq/L 3.4-5.0 H CHLORIDE (test code = CL) 101 mEq/L 100-108 N CARBON DIOXIDE (test code = CO2) 21 mEq/l 21-33 N ANION GAP (test code = GAP) 15 0-20 N GLUCOSE (test code = GLU) 118 mg/dL 70-110 H BLOOD UREA NITROGEN (test code = BUN) 47 mg/dL 7-18 H GLOMERULAR FILTRATION RATE (test code = GFR) 13.3 70-80 L The Glomerular Filtration Rate is a calculated parameterbased on serum Creatinine, patient age and sex. GFR valuesless than 60 mL/min/1.73 square meters are indicative ofChronic Kidney Disease. Values less than 15 mL/min/1.73square meters indicate Kidney failure. The calculation forGFR is based on the CKD-EPI (2020) calculation. This formulais race indifferent and is the recommended formula for GFRby the National Kidney Foundation for Adults.The GFR will not calculate if the sex is unknown or if thepatient's age is <18 years. CREATININE (test code = CREAT) 4.3 mg/dL 0.6-1.3 H CALCIUM (test code = CA) 8.6 mg/dL 8.0-10.5 N [id number] 04:50:00* Test Item Value Reference Range Interpretation Comme nts MAGNESIUM (test code = MAG) 2.69 mg/dL 1.80-2.40 H CBC W/AUTO [id number] 04:33:00* Test Item Value Reference Range Interpretation Comme nts WHITE BLOOD CELL (test code = WBC) 17.0 x10 3/uL 4.5-11.0 H RED BLOOD CELL (test code = RBC) 2.85 x10 6/uL 4.00-5.60 L HEMOGLOBIN (test code = HGB) 8.6 g/dL 12.5-16.9 L HEMATOCRIT (test code = HCT) 26.9 % 37.5-50.7 L MEAN CELL VOLUME (test code = MCV) 94.4 fL 81.0-99.0 N MEAN CELL HGB (test code = MCH) 30.2 pg 27.0-33.0 N MEAN CELL HGB CONCETRATION (test code = MCHC) 32.0 g/dL 33.0-37.0 L RED CELL DISTRIBUTION WIDTH CV (test code = RDW) 17.3 % 11.5-14.5 H RED CELL DISTRIBUTION WIDTH SD (test code = RDW-SD) 60.4 fL 37.0-54.0 H PLATELET COUNT (test code = PLT) 130 x10 3/uL 150-400 L MEAN PLATELET VOLUME (test code = MPV) 11.6 fL 7.0-9.0 H NEUTROPHIL % (test code = NT%) 83.2 % 56.0-77.0 H IMMATURE GRANULOCYTE % (test code = IG%) 0.9 % 0.0-2.0 N LYMPHOCYTE % (test code = LY%) 4.8 % 14.0-32.0 L MONOCYTE % (test code = MO%) 6.5 % 4.8-9.0 N EOSINOPHIL % (test code = EO%) 4.1 % 0.3-3.7 H BASOPHIL % (test code = BA%) 0.5 % 0.0-2.0 N NUCLEATED RBC % (test code = NRBC%) 0.0 % 0-0 N NEUTROPHIL # (test code = NT#) 14.13 x10 3/uL 2.0-7.6 H IMMATURE GRANULOCYTE # (test code = IG#) 0.15 x10 3/uL 0.00-0.03 H LYMPHOCYTE # (test code = LY#) 0.81 x10 3/uL 1.0-3.8 L MONOCYTE # (test code = MO#) 1.10 x10 3/uL 0.1-0.8 H EOSINOPHIL # (test code = EO#) 0.70 x10 3/uL 0.0-0.2 H BASOPHIL # (test code = BA#) 0.09 x10 3/uL 0.0-0.2 N NUCLEATED RBC # (test code = NRBC#) 0.00 x10 3/uL 0.0-0.1 N MANUAL DIFF REQUIRED (test code = MDIFF) NO POC ARTERIAL BLOOD [id number] 04:15:00* Test Item Value Reference Range Interpretation Comme nts POC ARTERIAL BLOOD GAS PH (t est code = POCPHA) 7.371 7.35-7.45 N POC ARTERIAL BLOOD GAS PCO2 (test code = JGQYOX2O) 34.5 mmHg 35.0-45 L POC TCO2 ARTERIAL (test code = POCTCO2) 21.1 POC ARTERIAL BLOOD GAS PO2 ( test code = VCZTG8K) 58.5 mmHg 80-100.0 L POC HCO3 ARTERIAL (test code = OQDBSO1B) 20.0 MMOL/L 22.0-26.0 L POC BASE EXCESS (test code = POCBEA) -5.3 MMOL/L -4.0-4.0 L POC O2 SATURATION (test code = POCO2S) 89.5 % 90-100 L ABG DELIVERY (test code = JH) HFNC ABG SITE (test code = SITEA) Art Line BASIC METABOLIC [id number] 04:15:00* Test Item Value Reference Range Interpretation Comme nts SODIUM (test code = NA/ABG) 130 mmol/L 134-147 L POTASSIUM (test code = K/ABG) 5.4 mmol/L 3.4-5.0 H CHLORIDE (test code = CL/ABG) 100 mmol/L 100-108 N CREATININE ABG (test code = CREAABG) 4.5 mg/dL 0.8-1.3 H POC IONIZED CALCIUM (test co de = POCCA) 1.19 MMOL/L 1.12-1.32 N POC GLUCOSE (test code = POCGLU) 130 MG/DL 70-110 H HEMOGLOBIN [id number] 04:15:00* Test Item Value Reference Range Interpretation Comme nts HEMOGLOBIN ABG (test code = HGB/ABG) 9.2 G/DL 12.5-16.9 L [id number] 04:15:00* Test Item Value Reference Range Interpretation Comme nts HEMATOCRIT (test code = HCT/ABG) 27 % 37.5-50.7 L POC LACTIC [id number] 04:15:00* Test Item Value Reference Range Interpretation Comme nts POC LACTIC ACID (test code = POCLAC) 0.6 mmol/l 0.9-1.7 L - XR CHEST 1 [id number] 00:00:00 [facility] PEDRO EARLINGName: SHERRI ARCE : 1940 Sex: M FAX:Radha Ward MD [phone] [place]: St: ADM FAX: Los Crawford [phone] FAX: Ana Toribio [phone] Name: SHERRI ARCE [facility] [place] : 1940 Age/S: 81/M [address] [place] [address] Unit #: [id number] Loc: G.[address] [id number] Phys: Rosalind Puentes [employer]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 Views: 1 view. COMPARISON: CR XRCHEST 1V 07/11/2022 5:08 AM FINDINGS: Tubes, catheters and devices: [place] catheter has been removed. Left chest tube is demonstrated. Lungs: Ifuu-pm-hymzwcmr bilateral perihilar and basilar interstitial lung opacities, suggesting pulmonary edema versus infiltrates. The peripheral lungs are otherwise clear. Bilateral pulmonary opacities are most prominent within the basilar lungs. Improvement oflung opacities is demonstrated. Pleural spaces: Small volume bilateral pleural effusions. No pneumothorax identified. Heart/Mediastinum: Cardiac silhouette appears moderate to severely enlarged. Bones/joints: Diffusely decreased bone density. Moderate to severe generalized bony degenerative changes. Sternotomy wires, hardware is demonstrated. Soft tissues: Right neck sheath tip is positioned overthe upper chest region. IMPRESSION: 1. Small bilateral pleural effusions. 2. Moderate to severe enlarged cardiac silhouette. 3. Szml-qw-uckawwew pulmonary edema versus infiltrates. Improvement. at 0736 Reported and signedby: Manuel Vega M.D. CC: Radha Ward MD; Los Crawford DO; Rosalind Toribio NP Technologist: Isidro Jarquin; RT Dorcas(R) Trnscrd Date/Time/By: 07/12/2022 (0736) : By: [email or web address] Orig Print D/T: S: 07/12/2022 (0737) PAGE 1 Signed ReportBASIC METABOLIC PANEL 2022-07-11 23:16:00* Test Item Value Reference Range Interpretation Comme nts SODIUM (test code = NA) 134 mEq/L 134-147 N POTASSIUM (test code = K) 5.1 mEq/L 3.4-5.0 H CHLORIDE (test code = CL) 103 mEq/L 100-108 N CARBON DIOXIDE (test code = CO2) 21 mEq/l 21-33 N ANION GAP (test code = GAP) 15 0-20 N GLUCOSE (test code = GLU) 100 mg/dL 70-110 BLOOD UREA NITROGEN (test code = BUN) 38 mg/dL 7-18 H GLOMERULAR FILTRATION RATE (test code = GFR) 15.0 70-80 L The Glomerular Filtration Rate is a calculated parameterbased on serum Creatinine, patient age and sex. GFR valuesless than 60 mL/min/1.73 square meters are indicative ofChronic Kidney Disease. Values less than 15 mL/min/1.73square meters indicate Kidney failure. The calculation forGFR is based on the CKD-EPI (2020) calculation. This formulais race indifferent and is the recommended formula for GFRby the National Kidney Foundation for Adults.The GFR will not calculate if the sex is unknown or if thepatient's age is <18 years. CREATININE (test code = CREAT) 3.9 mg/dL 0.6-1.3 H CALCIUM (test code = CA) 8.6 mg/dL 8.0-10.5 N CALCIUM [id number] 23:16:00* Test Item Value Reference Range Interpretation Comme nts CALCIUM IONIZED (test code = ARVIN) 1.09 MMOL/L 1.09-1.30 N HGB [id number] 22:43:00* Test Item Value Reference Range Interpretation Comme nts HEMOGLOBIN (test code = HGB) 8.1 g/dL 12.5-16.9 L HEMATOCRIT (test code = HCT) 25.4 % 37.5-50.7 L GLUCOSE [id number] 20:41:00* Test Item Value Reference Range Interpretation Comme nts GLUCOSE BEDSIDE (test code = GLUBED) 122 MG/DL 70-110 H Performed by cer erikied pick pulling machine operator at [facility] BASIC METABOLIC [id number] 16:09:00* Test Item Value Reference Range Interpretation Comme nts SODIUM (test code = NA) 132 mEq/L 134-147 L POTASSIUM (test code = K) 5.3 mEq/L 3.4-5.0 H CHLORIDE (test code = CL) 102 mEq/L 100-108 N CARBON DIOXIDE (test code = CO2) 22 mEq/l 21-33 N ANION GAP (test code = GAP) 13 0-20 N GLUCOSE (test code = GLU) 156 mg/dL 70-110 H BLOOD UREA NITROGEN (test code = BUN) 44 mg/dL 7-18 H GLOMERULAR FILTRATION RATE (test code = GFR) 15.4 70-80 L The Glomerular Filtration Rate is a calculated parameterbased on serum Creatinine, patient age and sex. GFR valuesless than 60 mL/min/1.73 square meters are indicative ofChronic Kidney Disease. Values less than 15 mL/min/1.73square meters indicate Kidney failure. The calculation forGFR is based on the CKD-EPI (2021) calculation. This formulais race indifferent and is the recommended formula for GFRby the National Kidney Foundation for Adults.The GFR will not calculate if the sex is unknown or if thepatient's age is <18 years. CREATININE (test code = CREAT) 3.8 mg/dL 0.6-1.3 H CALCIUM (test code = CA) 8.9 mg/dL 8.0-10.5 N [id number] 16:09:00* Test Item Value Reference Range Interpretation Comme nts PHOSPHOROUS (test code = PHOS) 3.9 MG/DL 2.5-4.9 N [id number] 16:09:00* Test Item Value Reference Range Interpretation Comme nts MAGNESIUM (test code = MAG) 2.72 mg/dL 1.80-2.40 H CALCIUM [id number] 16:09:00* Test Item Value Reference Range Interpretation Comme nts CALCIUM IONIZED (test code = ARVIN) 1.17 MMOL/L 1.09-1.30 N POC ARTERIAL BLOOD [id number] 15:54:00* Test Item Value Reference Range Interpretation Comme nts POC ARTERIAL BLOOD GAS PH (t est code = POCPHA) 7.347 7.35-7.45 L POC ARTERIAL BLOOD GAS PCO2 (test code = BQXNZC7V) 37.9 mmHg 35.0-45 N POC TCO2 ARTERIAL (test code = POCTCO2) 22.0 POC ARTERIAL BLOOD GAS PO2 ( test code = KQEDJ2S) 80.5 mmHg 80-100.0 N POC HCO3 ARTERIAL (test code = PRAGLL0W) 20.8 MMOL/L 22.0-26.0 L POC BASE EXCESS (test code = POCBEA) -4.8 MMOL/L -4.0-4.0 L POC O2 SATURATION (test code = POCO2S) 95.2 % 90-100 N ABG DELIVERY (test code = JH) Cannula ABG TEMPERATURE (test code = TEMPA) 98.6 F ABG SITE (test code = SITEA) Art Line MARYLU'S TEST (test code = ALLENS) N/A BASIC METABOLIC [id number] 15:54:00* Test Item Value Reference Range Interpretation Comme nts SODIUM (test code = NA/ABG) 131 mmol/L 134-147 L POTASSIUM (test code = K/ABG) 5.5 mmol/L 3.4-5.0 H CHLORIDE (test code = CL/ABG) 102 mmol/L 100-108 N CREATININE ABG (test code = CREAABG) 3.8 mg/dL 0.8-1.3 H POC IONIZED CALCIUM (test co de = POCCA) 1.24 MMOL/L 1.12-1.32 N POC GLUCOSE (test code = POCGLU) 159 MG/DL 70-110 H HEMOGLOBIN [id number] 15:54:00* Test Item Value Reference Range Interpretation Comme nts HEMOGLOBIN ABG (test code = HGB/ABG) 9.3 G/DL 12.5-16.9 L [id number] 15:54:00* Test Item Value Reference Range Interpretation Comme nts HEMATOCRIT (test code = HCT/ABG) 27 % 37.5-50.7 L POC LACTIC [id number] 15:54:00* Test Item Value Reference Range Interpretation Comme nts POC LACTIC ACID (test code = POCLAC) 1.1 mmol/l 0.9-1.7 N POC ARTERIAL BLOOD [id number] 09:52:00* Test Item Value Reference Range Interpretation Comme nts POC ARTERIAL BLOOD GAS PH (t est code = POCPHA) 7.381 7.35-7.45 N POC ARTERIAL BLOOD GAS PCO2 (test code = LEBYDX0A) 36.5 mmHg 35.0-45 N POC TCO2 ARTERIAL (test code = POCTCO2) 22.8 POC ARTERIAL BLOOD GAS PO2 ( test code = YPUUZ7E) 71.5 mmHg 80-100.0 L POC HCO3 ARTERIAL (test code = PQAIAQ3O) 21.7 MMOL/L 22.0-26.0 L POC BASE EXCESS (test code = POCBEA) -3.4 MMOL/L -4.0-4.0 N POC O2 SATURATION (test code = POCO2S) 93.9 % 90-100 N ABG DELIVERY (test code = JH) Cannula ABG TEMPERATURE (test code = TEMPA) 98.8 F ABG SITE (test code = SITEA) Art Line MARYLU'S TEST (test code = ALLENS) N/A BASIC METABOLIC [id number] 09:52:00* Test Item Value Reference Range Interpretation Comme nts SODIUM (test code = NA/ABG) 133 mmol/L 134-147 L POTASSIUM (test code = K/ABG) 4.9 mmol/L 3.4-5.0 N CHLORIDE (test code = CL/ABG) 103 mmol/L 100-108 N CREATININE ABG (test code = CREAABG) 3.6 mg/dL 0.8-1.3 H POC IONIZED CALCIUM (test co de = POCCA) 1.25 MMOL/L 1.12-1.32 N POC GLUCOSE (test code = POCGLU) 122 MG/DL 70-110 H HEMOGLOBIN [id number] 09:52:00* Test Item Value Reference Range Interpretation Comme nts HEMOGLOBIN ABG (test code = HGB/ABG) 9.2 G/DL 12.5-16.9 L [id number] 09:52:00* Test Item Value Reference Range Interpretation Comme nts HEMATOCRIT (test code = HCT/ABG) 27 % 37.5-50.7 L POC LACTIC [id number] 09:52:00* Test Item Value Reference Range Interpretation Comme nts POC LACTIC ACID (test code = POCLAC) 0.5 mmol/l 0.9-1.7 L GLUCOSE [id number] 07:55:00* Test Item Value Reference Range Interpretation Comme nts GLUCOSE BEDSIDE (test code = GLUBED) 117 MG/DL 70-110 H Performed by cer tified pick pulling machine operator at [facility] BASIC METABOLIC [id number] 04:32:00* Test Item Value Reference Range Interpretation Comme nts SODIUM (test code = NA/ABG) 135 mmol/L 134-147 N POTASSIUM (test code = K/ABG) 4.7 mmol/L 3.4-5.0 N CHLORIDE (test code = CL/ABG) 105 mmol/L 100-108 N CREATININE ABG (test code = CREAABG) 3.6 mg/dL 0.8-1.3 H POC IONIZED CALCIUM (test co de = POCCA) 1.26 MMOL/L 1.12-1.32 N POC GLUCOSE (test code = POCGLU) 102 MG/DL 70-110 N HEMOGLOBIN [id number] 04:32:00* Test Item Value Reference Range Interpretation Comme nts HEMOGLOBIN ABG (test code = HGB/ABG) 10.5 G/DL 12.5-16.9 L [id number] 04:32:00* Test Item Value Reference Range Interpretation Comme nts HEMATOCRIT (test code = HCT/ABG) 31 % 37.5-50.7 L POC LACTIC [id number] 04:32:00* Test Item Value Reference Range Interpretation Comme nts POC LACTIC ACID (test code = POCLAC) 0.4 mmol/l 0.9-1.7 L POC VENOUS BLOOD [id number] 04:32:00* Test Item Value Reference Range Interpretation Comme nts POC VENOUS BLOOD GAS PH (marcie t code = POCPHV) 7.369 7.33-7.45 N POC VENOUS BLOOD GAS PCO2 (t est code = WNDVCZ4J) 42.1 mmHg 43-47 L POC VENOUS BLOOD GAS PO2 (te st code = CDGAW0V) 30.2 mmHG 10-50 N POC TCO2 VENOUS (test code = SPKJAZ7F) 25.6 POC HCO3 VENOUS (test code = SKWUGB8L) 24.3 MMOL/L 22-27 N POC BASE EXCESS VENOUS (test code = POCBEV) -1.0 MMOL/L -4.0-4.0 N POC O2 SATURATION VENOUS (te st code = BJWE7TT) 55.6 % 60-80 L VENOUS BLOOD GAS DELIVERY (t est code = DELV) HFNC VENOUS BLOOD GAS SITE (test code = SITEV) Colby Canales [id number] 03:34:00* Test Item Value Reference Range Interpretation Comme nts MAGNESIUM (test code = MAG) 2.89 mg/dL 1.80-2.40 H BASIC METABOLIC [id number] 03:14:00* Test Item Value Reference Range Interpretation Comme nts SODIUM (test code = NA) 136 mEq/L 134-147 N POTASSIUM (test code = K) 4.8 mEq/L 3.4-5.0 N CHLORIDE (test code = CL) 103 mEq/L 100-108 N CARBON DIOXIDE (test code = CO2) 24 mEq/l 21-33 N ANION GAP (test code = GAP) 14 0-20 N GLUCOSE (test code = GLU) 103 mg/dL 70-110 BLOOD UREA NITROGEN (test code = BUN) 32 mg/dL 7-18 H GLOMERULAR FILTRATION RATE (test code = GFR) 19.0 70-80 L The Glomerular Filtration Rate is a calculated parameterbased on serum Creatinine, patient age and sex. GFR valuesless than 60 mL/min/1.73 square meters are indicative ofChronic Kidney Disease. Values less than 15 mL/min/1.73square meters indicate Kidney failure. The calculation forGFR is based on the CKD-EPI (202) calculation. This formulais race indifferent and is the recommended formula for GFRby the National Kidney Foundation for Adults.The GFR will not calculate if the sex is unknown or if thepatient's age is <18 years. CREATININE (test code = CREAT) 3.2 mg/dL 0.6-1.3 H CALCIUM (test code = CA) 9.0 mg/dL 8.0-10.5 N COMMENTS: POD #1HEPATIC FUNCTION [id number] 03:14:00* Test Item Value Reference Range Interpretation Comme nts TOTAL PROTEIN (test code = PROT) 6.1 g/dL 6.4-8.2 L ALBUMIN (test code = ALB) 3.30 g/dL 3.4-5.0 L BILIRUBIN TOTAL (test code = BILT) 0.40 mg/dL 0.0-1.0 BILIRUBIN DIRECT (test code = BILD) 0.20 MG/DL 0.0-0.30 BILIRUBIN INDIRECT (test cod e = BILIND) 0.20 MG/DL SGOT/AST (test code = AST) 36 IUnit/L 15-37 N SGPT/ALT (test code = ALT) < 7 IUnit/L 30-65 L ALKALINE PHOSPHATASE TOTAL ( test code = ALKP) 105 IUnit/L 20-125 COMMENTS: POD #1CBC W/AUTO [id number] 03:07:00* Test Item Value Reference Range Interpretation Comme nts WHITE BLOOD CELL (test code = WBC) 22.2 x10 3/uL 4.5-11.0 H RED BLOOD CELL (test code = RBC) 2.91 x10 6/uL 4.00-5.60 L HEMOGLOBIN (test code = HGB) 8.6 g/dL 12.5-16.9 L HEMATOCRIT (test code = HCT) 27.7 % 37.5-50.7 L MEAN CELL VOLUME (test code = MCV) 95.2 fL 81.0-99.0 N MEAN CELL HGB (test code = MCH) 29.6 pg 27.0-33.0 N MEAN CELL HGB CONCETRATION (test code = MCHC) 31.0 g/dL 33.0-37.0 L RED CELL DISTRIBUTION WIDTH CV (test code = RDW) 18.1 % 11.5-14.5 H RED CELL DISTRIBUTION WIDTH SD (test code = RDW-SD) 62.5 fL 37.0-54.0 H PLATELET COUNT (test code = PLT) 100 x10 3/uL 150-400 L IMMATURE PLATELET FRACTION (test code = IPF) 6.5 % 0.9-11.2 N MEAN PLATELET VOLUME (test code = MPV) 11.8 fL 7.0-9.0 H NEUTROPHIL % (test code = NT%) 86.3 % 56.0-77.0 H IMMATURE GRANULOCYTE % (test code = IG%) 0.9 % 0.0-2.0 N LYMPHOCYTE % (test code = LY%) 4.2 % 14.0-32.0 L MONOCYTE % (test code = MO%) 7.5 % 4.8-9.0 N EOSINOPHIL % (test code = EO%) 0.8 % 0.3-3.7 N BASOPHIL % (test code = BA%) 0.3 % 0.0-2.0 N NUCLEATED RBC % (test code = NRBC%) 0.0 % 0-0 N NEUTROPHIL # (test code = NT#) 19.22 x10 3/uL 2.0-7.6 H IMMATURE GRANULOCYTE # (test code = IG#) 0.19 x10 3/uL 0.00-0.03 H LYMPHOCYTE # (test code = LY#) 0.93 x10 3/uL 1.0-3.8 L MONOCYTE # (test code = MO#) 1.66 x10 3/uL 0.1-0.8 H EOSINOPHIL # (test code = EO#) 0.17 x10 3/uL 0.0-0.2 N BASOPHIL # (test code = BA#) 0.06 x10 3/uL 0.0-0.2 N NUCLEATED RBC # (test code = NRBC#) 0.00 x10 3/uL 0.0-0.1 N MANUAL DIFF REQUIRED (test code = MDIFF) NO POC ARTERIAL BLOOD [id number] 02:32:00* Test Item Value Reference Range Interpretation Comme nts POC ARTERIAL BLOOD GAS PH (t est code = POCPHA) 7.375 7.35-7.45 N POC ARTERIAL BLOOD GAS PCO2 (test code = GCTUHG4Z) 40.6 mmHg 35.0-45 N POC TCO2 ARTERIAL (test code = POCTCO2) 25.0 POC ARTERIAL BLOOD GAS PO2 ( test code = KEEMY3S) 64.8 mmHg 80-100.0 L POC HCO3 ARTERIAL (test code = OCBAFA0J) 23.8 MMOL/L 22.0-26.0 N POC BASE EXCESS (test code = POCBEA) -1.4 MMOL/L -4.0-4.0 N POC O2 SATURATION (test code = POCO2S) 91.8 % 90-100 N ABG DELIVERY (test code = JH) HFNC ABG SITE (test code = SITEA) Art Line BASIC METABOLIC [id number] 02:32:00* Test Item Value Reference Range Interpretation Comme nts SODIUM (test code = NA/ABG) 135 mmol/L 134-147 N POTASSIUM (test code = K/ABG) 4.7 mmol/L 3.4-5.0 N CHLORIDE (test code = CL/ABG) 101 mmol/L 100-108 N CREATININE ABG (test code = CREAABG) 3.3 mg/dL 0.8-1.3 H POC IONIZED CALCIUM (test co de = POCCA) 1.26 MMOL/L 1.12-1.32 N POC GLUCOSE (test code = POCGLU) 109 MG/DL 70-110 N HEMOGLOBIN [id number] 02:32:00* Test Item Value Reference Range Interpretation Comme nts HEMOGLOBIN ABG (test code = HGB/ABG) 9.3 G/DL 12.5-16.9 L [id number] 02:32:00* Test Item Value Reference Range Interpretation Comme nts HEMATOCRIT (test code = HCT/ABG) 27 % 37.5-50.7 L POC LACTIC [id number] 02:32:00* Test Item Value Reference Range Interpretation Comme nts POC LACTIC ACID (test code = POCLAC) 0.5 mmol/l 0.9-1.7 L - XR CHEST 1 [id number] 00:00:00 [facility] 1940 Sex: M FAX: Radha Ward MD [phone] [place]: St: ADM FAX: [place] [phone] FAX: Ana Toribio [phone] Name: SHERRI ARCE [facility] : 1940 Age/S: 81/M [address] [place] [address] Unit #: [id number] Loc: [address] [place] [id number] Phys: Rosalind Puentes [employer] Acct: [id number] Dis Date: Status: ADM IN PHONE #: [phone] Exam Date: 07/11/2022 0554 FAX #: [phone] Reason: Cardiac Surg sunita Post Op EXAMS: CPT CODE: [id number] XR CHEST 1 V [id number] PROCEDURE INFORMATION: Exam: XR Chest Exam date and time: 07/11/2022 5:08 AM Age: 81 years old Clinical indication: Other: Cardiac surgery postop TECHNIQUE: Imaging protocol: Radiologic exam of the chest. Views: 1 view. COMPARISON: CR XR CHEST 1V 07/10/2022 5:24 AM FINDINGS: Tubes, catheters and devices: [place] catheter is present and enters right neck sheath. The [place] catheter tip overlies the expected pulmonary outflow [...] Vasculature: Tortuous and ectatic aorta is demonstrated. Bjvm-qk-sfakgjkb atherosclerotic calcification demonstrated within the aorta. Bones/joints: Diffusely decreased bone density. Moderate to severe generalized bony degenerative changes. Sternotomy wires, hardware is demonstrated. Soft tissues: Limited visualization of the upper chest, secondary to overlying head position. This study is limited by patient's body habitus. IMPRESSION: 1. Mo derate enlarged cardiac silhouette. 2. Small bilateral pleural effusions. 3. Moderate to severe pulmonary edema versus infiltrates, pneumonia. Progression of opacities within right lower chest. 4. Degenerative and postsurgical changes are demonstrated, as described above. 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 CC: Radha Ward MD; [place] DO; Rosalind Toribio NP Technologist: RT Britta(R) Trnscrd Date/Time/By: 07/11/2022 (1205) : By: [email or web address] Orig Print D/T: S: 07/11/2022 (3704) PAGE 2 Signed ReportBASIC METABOLIC [id number] 21:21:00* Test Item Value Reference Range Interpretation Comme nts SODIUM (test code = NA) 137 mEq/L 134-147 N POTASSIUM (test code = K) 4.7 mEq/L 3.4-5.0 N CHLORIDE (test code = CL) 105 mEq/L 100-108 N CARBON DIOXIDE (test code = CO2) 23 mEq/l 21-33 N ANION GAP (test code = GAP) 14 0-20 N GLUCOSE (test code = GLU) 141 mg/dL 70-110 H BLOOD UREA NITROGEN (test code = BUN) 26 mg/dL 7-18 H GLOMERULAR FILTRATION RATE (test code = GFR) 21.3 70-80 L The Glomerular Filtration Rate is a calculated parameterbased on serum Creatinine, patient age and sex. GFR valuesless than 60 mL/min/1.73 square meters are indicative ofChronic Kidney Disease. Values less than 15 mL/min/1.73square meters indicate Kidney failure. The calculation forGFR is based on the CKD-EPI (2020) calculation. This formulais race indifferent and is the recommended formula for GFRby the National Kidney Foundation for Adults.The GFR will not calculate if the sex is unknown or if thepatient's age is <18 years. CREATININE (test code = CREAT) 2.9 mg/dL 0.6-1.3 H CALCIUM (test code = CA) 8.6 mg/dL 8.0-10.5 N [id number] 21:21:00* Test Item Value Reference Range Interpretation Comme nts MAGNESIUM (test code = MAG) 2.63 mg/dL 1.80-2.40 H CALCIUM [id number] 21:21:00* Test Item Value Reference Range Interpretation Comme nts CALCIUM IONIZED (test code = ARVIN) 1.14 MMOL/L 1.09-1.30 N GLUCOSE [id number] 16:38:00* Test Item Value Reference Range Interpretation Comme nts GLUCOSE BEDSIDE (test code = GLUBED) 126 MG/DL 70-110 H Performed by cer tified pick pulling machine operator at [facility] BASIC METABOLIC [id number] 15:12:00* Test Item Value Reference Range Interpretation Comme nts SODIUM (test code = NA) 136 mEq/L 134-147 N POTASSIUM (test code = K) 4.8 mEq/L 3.4-5.0 N CHLORIDE (test code = CL) 104 mEq/L 100-108 N CARBON DIOXIDE (test code = CO2) 25 mEq/l 21-33 N ANION GAP (test code = GAP) 12 0-20 N GLUCOSE (test code = GLU) 183 mg/dL 70-110 H BLOOD UREA NITROGEN (test code = BUN) 24 mg/dL 7-18 H GLOMERULAR FILTRATION RATE (test code = GFR) 24.3 70-80 L The Glomerular Filtration Rate is a calculated parameterbased on serum Creatinine, patient age and sex. GFR valuesless than 60 mL/min/1.73 square meters are indicative ofChronic Kidney Disease. Values less than 15 mL/min/1.73square meters indicate Kidney failure. The calculation forGFR is based on the CKD-EPI (2020) calculation. This formulais race indifferent and is the recommended formula for GFRby the National Kidney Foundation for Adults.The GFR will not calculate if the sex is unknown or if thepatient's age is <18 years. CREATININE (test code = CREAT) 2.6 mg/dL 0.6-1.3 H CALCIUM (test code = CA) 8.8 mg/dL 8.0-10.5 N [id number] 15:12:00* Test Item Value Reference Range Interpretation Comme nts PHOSPHOROUS (test code = PHOS) 3.2 MG/DL 2.5-4.9 N [id number] 15:12:00* Test Item Value Reference Range Interpretation Comme nts MAGNESIUM (test code = MAG) 2.39 mg/dL 1.80-2.40 N CALCIUM [id number] 15:12:00* Test Item Value Reference Range Interpretation Comme nts CALCIUM IONIZED (test code = ARVIN) 1.19 MMOL/L 1.09-1.30 N CBC W/AUTO [id number] 15:00:00* Test Item Value Reference Range Interpretation Comme nts WHITE BLOOD CELL (test code = WBC) 24.7 x10 3/uL 4.5-11.0 H RED BLOOD CELL (test code = RBC) 2.45 x10 6/uL 4.00-5.60 L HEMOGLOBIN (test code = HGB) 7.5 g/dL 12.5-16.9 L HEMATOCRIT (test code = HCT) 23.6 % 37.5-50.7 L MEAN CELL VOLUME (test code = MCV) 96.3 fL 81.0-99.0 N MEAN CELL HGB (test code = MCH) 30.6 pg 27.0-33.0 N MEAN CELL HGB CONCETRATION (test code = MCHC) 31.8 g/dL 33.0-37.0 L RED CELL DISTRIBUTION WIDTH CV (test code = RDW) 18.0 % 11.5-14.5 H RED CELL DISTRIBUTION WIDTH SD (test code = RDW-SD) 63.3 fL 37.0-54.0 H PLATELET COUNT (test code = PLT) 91 x10 3/uL 150-400 L MEAN PLATELET VOLUME (test code = MPV) 12.0 fL 7.0-9.0 H NEUTROPHIL % (test code = NT%) 89.7 % 56.0-77.0 H IMMATURE GRANULOCYTE % (test code = IG%) 1.1 % 0.0-2.0 N LYMPHOCYTE % (test code = LY%) 3.2 % 14.0-32.0 L MONOCYTE % (test code = MO%) 5.4 % 4.8-9.0 N EOSINOPHIL % (test code = EO%) 0.4 % 0.3-3.7 N BASOPHIL % (test code = BA%) 0.2 % 0.0-2.0 N NUCLEATED RBC % (test code = NRBC%) 0.0 % 0-0 N NEUTROPHIL # (test code = NT#) 22.14 x10 3/uL 2.0-7.6 H IMMATURE GRANULOCYTE # (test code = IG#) 0.26 x10 3/uL 0.00-0.03 H LYMPHOCYTE # (test code = LY#) 0.79 x10 3/uL 1.0-3.8 L MONOCYTE # (test code = MO#) 1.32 x10 3/uL 0.1-0.8 H EOSINOPHIL # (test code = EO#) 0.09 x10 3/uL 0.0-0.2 N BASOPHIL # (test code = BA#) 0.06 x10 3/uL 0.0-0.2 N NUCLEATED RBC # (test code = NRBC#) 0.00 x10 3/uL 0.0-0.1 N MANUAL DIFF REQUIRED (test code = MDIFF) NO [id number] 14:54:00* Test Item Value Reference Range Interpretation Comme nts SURGICAL (test code = SR) R UN DATE: 07/10/22 [facility] PAGE 1 RUN TIME: 1454 Specimen Inquiry RUN USER: INTERFACE P ATIENT: SHERRI ARCE LOC: AYO U #: [id number] AGE/SX: 81/M ROOM: [facility] RE07/02/22REG DR: Radha Ward MD : 42 BED: 1 DIS: STATUS: ADM IN TLOC: SPEC #: [id number] RECD: 07/09/22 STATUS: ASTRID REDestiny #: [id number] AARON: 07/08/22 DR: Lina Schwarz MD ENTERED: 07/09/22 SP TYPE: SURGICAL OTHR DR: Self Referred Prosper Ennis MD, Soubhi MD Burnette, Christopher A DO Chaugle, Abdul Hannan MD Raslan, Saleem MDORDERED: 23613, ANATOMIC SPEC COPIES TO: Self Referred Prosper Ennis MD [address] [place] [address] Evelina Plaza MD [address] [place], [place] [id number] [place] [address] [facility] [address] [place] [address] Lina Schwarz MD [address] [facility]. [address] [place] [address] Mario Briseno MD [address] [facility] [address] [place] [address] PROCEDURES: 24849 (07/10/221500) TISSUES: A. ATRIUM - LEFT ATRIAL APPENDAGE CONTINUED ON NEXT PAGE R UN DATE: 07/10/22 [place] - LAB PAGE 2 RUN TIME: 1454 Specimen Inquiry RUN USER: INTERFACE S PEC #: [id number] PATIENT: SHERRI ARCE #[id number] (Continued) CLINICAL HISTORY SAME FINAL DIAGNOSIS Heart, left atrial appendage, wedge biopsy: Myocardium with ischemic change; serosalinflammation, consistent with pericarditis. GROSS DESCRIPTION Received in formalin labeled "left atrial appendage "is a wedge biopsy of heart, 3.4 x 0.2x 1.4 cm, sectioned and entirely submitted (A)-(B). Technical component performed at [facility],[address] [place] [address] Unless gross only, the diagnosis is based upon microscopic examination.Immunohistochemistr y: This test was developed and its performance characteristicsdetermined by this laboratory. It has not been approved nor does it need approvalby the [place] FDA. Appropriate positive and negative controls are reviewed and judgedto be acceptable. This laboratory is certified under the Clinical Laboratory ImprovementAmendments (CLIA-88) as qualified to perform high complexity clinical laboratory testing. CLINICAL INFORMATION CAD -- Signed SIGNATURE ON FILE Michelle Almonte 07/10/22 1454 END OF REPORT GLUCOSE [id number] 12:08:00* Test Item Value Reference Range Interpretation Comme nts GLUCOSE BEDSIDE (test code = GLUBED) 146 MG/DL 70-110 H Performed by sakina mondragon at [facility] BASIC METABOLIC [id number] 10:44:00* Test Item Value Reference Range Interpretation Comme nts SODIUM (test code = NA) 136 mEq/L 134-147 N POTASSIUM (test code = K) 4.9 mEq/L 3.4-5.0 N CHLORIDE (test code = CL) 103 mEq/L 100-108 N CARBON DIOXIDE (test code = CO2) 26 mEq/l 21-33 N ANION GAP (test code = GAP) 12 0-20 N GLUCOSE (test code = GLU) 129 mg/dL 70-110 H BLOOD UREA NITROGEN (test code = BUN) 22 mg/dL 7-18 H GLOMERULAR FILTRATION RATE (test code = GFR) 25.5 70-80 L The Glomerular Filtration Rate is a calculated parameterbased on serum Creatinine, patient age and sex. GFR valuesless than 60 mL/min/1.73 square meters are indicative ofChronic Kidney Disease. Values less than 15 mL/min/1.73square meters indicate Kidney failure. The calculation forGFR is based on the CKD-EPI (2020) calculation. This formulais race indifferent and is the recommended formula for GFRby the National Kidney Foundation for Adults.The GFR will not calculate if the sex is unknown or if thepatient's age is <18 years. CREATININE (test code = CREAT) 2.5 mg/dL 0.6-1.3 H CALCIUM (test code = CA) 8.9 mg/dL 8.0-10.5 N [id number] 10:44:00* Test Item Value Reference Range Interpretation Comme nts PHOSPHOROUS (test code = PHOS) 3.7 MG/DL 2.5-4.9 N [id number] 10:44:00* Test Item Value Reference Range Interpretation Comme nts MAGNESIUM (test code = MAG) 2.28 mg/dL 1.80-2.40 N CALCIUM [id number] 10:44:00* Test Item Value Reference Range Interpretation Comme nts CALCIUM IONIZED (test code = ARVIN) 1.21 MMOL/L 1.09-1.30 N GLUCOSE [id number] 10:23:00* Test Item Value Reference Range Interpretation Comme nts GLUCOSE BEDSIDE (test code = GLUBED) 111 MG/DL 70-110 H Performed by cer yusef pick pulling machine operator at [facility] POC ARTERIAL BLOOD [id number] 10:12:00* Test Item Value Reference Range Interpretation Comme nts POC ARTERIAL BLOOD GAS PH (t est code = POCPHA) 7.385 7.35-7.45 N POC ARTERIAL BLOOD GAS PCO2 (test code = HYHHBW5E) 46.4 mmHg 35.0-45 H POC TCO2 ARTERIAL (test code = POCTCO2) 29.2 POC ARTERIAL BLOOD GAS PO2 ( test code = HEMXR4S) 89.1 mmHg 80-100.0 N POC HCO3 ARTERIAL (test code = SMWOPS4U) 27.8 MMOL/L 22.0-26.0 H POC BASE EXCESS (test code = POCBEA) 2.7 MMOL/L -4.0-4.0 N POC O2 SATURATION (test code = POCO2S) 96.7 % 90-100 N ABG DELIVERY (test code = JH) Cannula ABG TEMPERATURE (test code = TEMPA) 98.4 F ABG SITE (test code = SITEA) Art Line MARYLU'S TEST (test code = ALLENS) N/A BASIC METABOLIC [id number] 10:12:00* Test Item Value Reference Range Interpretation Comme nts SODIUM (test code = NA/ABG) 136 mmol/L 134-147 N POTASSIUM (test code = K/ABG) 4.8 mmol/L 3.4-5.0 N CHLORIDE (test code = CL/ABG) 102 mmol/L 100-108 N CREATININE ABG (test code = CREAABG) 2.4 mg/dL 0.8-1.3 H POC IONIZED CALCIUM (test co de = POCCA) 1.36 MMOL/L 1.12-1.32 H POC GLUCOSE (test code = POCGLU) 139 MG/DL 70-110 H HEMOGLOBIN [id number] 10:12:00* Test Item Value Reference Range Interpretation Comme nts HEMOGLOBIN ABG (test code = HGB/ABG) 8.0 G/DL 12.5-16.9 L [id number] 10:12:00* Test Item Value Reference Range Interpretation Comme nts HEMATOCRIT (test code = HCT/ABG) 24 % 37.5-50.7 L POC LACTIC [id number] 10:12:00* Test Item Value Reference Range Interpretation Comme nts POC LACTIC ACID (test code = POCLAC) 1.3 mmol/l 0.9-1.7 N GLUCOSE [id number] 06:10:00* Test Item Value Reference Range Interpretation Comme [facility] GLUCOSE BEDSIDE (test code = GLUBED) 146 MG/DL 70-110 H Performed by cer tified pick pulling machine operator at [facility] GLUCOSE [id number] 05:27:00* Test Item Value Reference Range Interpretation Comme nts GLUCOSE BEDSIDE (test code = GLUBED) 129 MG/DL 70-110 H Performed by cer Jogli pick pulling machine operator at [facility] BASIC METABOLIC [id number] 04:28:00* Test Item Value Reference Range Interpretation Comme nts SODIUM (test code = NA) 141 mEq/L 134-147 N POTASSIUM (test code = K) 4.8 mEq/L 3.4-5.0 N CHLORIDE (test code = CL) 107 mEq/L 100-108 N CARBON DIOXIDE (test code = CO2) 25 mEq/l 21-33 N ANION GAP (test code = GAP) 14 0-20 N GLUCOSE (test code = GLU) 104 mg/dL 70-110 N BLOOD UREA NITROGEN (test code = BUN) 18 mg/dL 7-18 GLOMERULAR FILTRATION RATE (test code = GFR) 25.5 70-80 L The Glomerular Filtration Rate is a calculated parameterbased on serum Creatinine, patient age and sex. GFR valuesless than 60 mL/min/1.73 square meters are indicative ofChronic Kidney Disease. Values less than 15 mL/min/1.73square meters indicate Kidney failure. The calculation forGFR is based on the CKD-EPI (202) calculation. This formulais race indifferent and is the recommended formula for GFRby the National Kidney Foundation for Adults.The GFR will not calculate if the sex is unknown or if thepatient's age is <18 years. CREATININE (test code = CREAT) 2.5 mg/dL 0.6-1.3 H CALCIUM (test code = CA) 9.1 mg/dL 8.0-10.5 N COMMENTS: POD #1HEPATIC FUNCTION [id number] 04:28:00* Test Item Value Reference Range Interpretation Comme nts TOTAL PROTEIN (test code = PROT) 6.1 g/dL 6.4-8.2 L ALBUMIN (test code = ALB) 3.60 g/dL 3.4-5.0 N BILIRUBIN TOTAL (test code = BILT) 0.20 mg/dL 0.0-1.0 N BILIRUBIN DIRECT (test code = BILD) 0.10 MG/DL 0.0-0.30 N BILIRUBIN INDIRECT (test cod e = BILIND) 0.10 MG/DL SGOT/AST (test code = AST) 64 IUnit/L 15-37 H SGPT/ALT (test code = ALT) < 7 IUnit/L 30-65 L ALKALINE PHOSPHATASE TOTAL ( test code = ALKP) 54 IUnit/L 20-125 N COMMENTS: POD #[id number] 04:28:00* Test Item Value Reference Range Interpretation Comme nts PHOSPHOROUS (test code = PHOS) 3.8 MG/DL 2.5-4.9 N COMMENTS: POD #[id number] 04:28:00* Test Item Value Reference Range Interpretation Comme nts MAGNESIUM (test code = MAG) 2.32 mg/dL 1.80-2.40 N COMMENTS: POD #1CALCIUM [id number] 04:28:00* Test Item Value Reference Range Interpretation Comme nts CALCIUM IONIZED (test code = ARVIN) 1.14 MMOL/L 1.09-1.30 N COMMENTS: POD #1CBC W/AUTO [id number] 03:50:00* Test Item Value Reference Range Interpretation Comme nts WHITE BLOOD CELL (test code = WBC) 23.5 x10 3/uL 4.5-11.0 H RED BLOOD CELL (test code = RBC) 2.66 x10 6/uL 4.00-5.60 L HEMOGLOBIN (test code = HGB) 8.1 g/dL 12.5-16.9 L HEMATOCRIT (test code = HCT) 25.5 % 37.5-50.7 L MEAN CELL VOLUME (test code = MCV) 95.9 fL 81.0-99.0 N MEAN CELL HGB (test code = MCH) 30.5 pg 27.0-33.0 N MEAN CELL HGB CONCETRATION (test code = MCHC) 31.8 g/dL 33.0-37.0 L RED CELL DISTRIBUTION WIDTH CV (test code = RDW) 18.2 % 11.5-14.5 H RED CELL DISTRIBUTION WIDTH SD (test code = RDW-SD) 64.2 fL 37.0-54.0 H PLATELET COUNT (test code = PLT) 88 x10 3/uL 150-400 L MEAN PLATELET VOLUME (test code = MPV) 12.1 fL 7.0-9.0 H NEUTROPHIL % (test code = NT%) 86.5 % 56.0-77.0 H IMMATURE GRANULOCYTE % (test code = IG%) 0.7 % 0.0-2.0 N LYMPHOCYTE % (test code = LY%) 3.6 % 14.0-32.0 L MONOCYTE % (test code = MO%) 8.3 % 4.8-9.0 N EOSINOPHIL % (test code = EO%) 0.5 % 0.3-3.7 N BASOPHIL % (test code = BA%) 0.4 % 0.0-2.0 N NUCLEATED RBC % (test code = NRBC%) 0.0 % 0-0 N NEUTROPHIL # (test code = NT#) 20.33 x10 3/uL 2.0-7.6 H IMMATURE GRANULOCYTE # (test code = IG#) 0.17 x10 3/uL 0.00-0.03 H LYMPHOCYTE # (test code = LY#) 0.84 x10 3/uL 1.0-3.8 L MONOCYTE # (test code = MO#) 1.95 x10 3/uL 0.1-0.8 H EOSINOPHIL # (test code = EO#) 0.12 x10 3/uL 0.0-0.2 N BASOPHIL # (test code = BA#) 0.10 x10 3/uL 0.0-0.2 N NUCLEATED RBC # (test code = NRBC#) 0.00 x10 3/uL 0.0-0.1 N MANUAL DIFF REQUIRED (test code = MDIFF) NO POC ARTERIAL BLOOD [id number] 03:36:00* Test Item Value Reference Range Interpretation Comme nts POC ARTERIAL BLOOD GAS PH (t est code = POCPHA) 7.408 7.35-7.45 N POC ARTERIAL BLOOD GAS PCO2 (test code = HCUSFD9F) 42.4 mmHg 35.0-45 N POC TCO2 ARTERIAL (test code = POCTCO2) 28.1 POC ARTERIAL BLOOD GAS PO2 ( test code = OWESF8Y) 62.6 mmHg 80-100.0 L POC HCO3 ARTERIAL (test code = DNJMVI0W) 26.8 MMOL/L 22.0-26.0 H POC BASE EXCESS (test code = POCBEA) 2.1 MMOL/L -4.0-4.0 N POC O2 SATURATION (test code = POCO2S) 91.7 % 90-100 N ABG DELIVERY (test code = JH) HFNC ABG SITE (test code = SITEA) Art Line BASIC METABOLIC [id number] 03:36:00* Test Item Value Reference Range Interpretation Comme nts SODIUM (test code = NA/ABG) 139 mmol/L 134-147 N POTASSIUM (test code = K/ABG) 4.6 mmol/L 3.4-5.0 N CHLORIDE (test code = CL/ABG) 104 mmol/L 100-108 N CREATININE ABG (test code = CREAABG) 2.6 mg/dL 0.8-1.3 H POC IONIZED CALCIUM (test co de = POCCA) 1.27 MMOL/L 1.12-1.32 N POC GLUCOSE (test code = POCGLU) 111 MG/DL 70-110 H HEMOGLOBIN [id number] 03:36:00* Test Item Value Reference Range Interpretation Comme nts HEMOGLOBIN ABG (test code = HGB/ABG) 8.3 G/DL 12.5-16.9 L [id number] 03:36:00* Test Item Value Reference Range Interpretation Comme nts HEMATOCRIT (test code = HCT/ABG) 24 % 37.5-50.7 L POC LACTIC [id number] 03:36:00* Test Item Value Reference Range Interpretation Comme nts POC LACTIC ACID (test code = POCLAC) 0.7 mmol/l 0.9-1.7 L GLUCOSE [id number] 02:29:00* Test Item Value Reference Range Interpretation Comme [facility] GLUCOSE BEDSIDE (test code = GLUBED) 87 MG/DL 70-110 N Performed by sakina holbrook pick pulling machine operator at [facility] - XR CHEST 1 [id number] 00:00:00 [facility] 1940 Sex: M FAX: Radha Wadr MD [phone] [place]: St: [facility] FAX: [place] [phone] FAX: Ana Toribio [phone] Name: SHERRI ARCE [facility] : 1940 Age/S: 81/M [address] [place] [address] Unit #: [id number] Loc: [address] [place] [address] Phys: Rosalind Puentes 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 Flannery at 07/10/2022 8:36 AM [employer]. at 0837 Reported and signed by: Babak [...] FINDINGS: Tubes, catheters and devices: Right IJ [place]-Ally catheter tip at the level of pulmonary arterial bifurcation. Mediastinal and left thoracostomy drains in place. EKG and epicardial pacer leads overlie the chest. Lungs: Lungvolumes are grossly stable. Indistinct opacities mid and lower lung zones similar in distribution. R etrocardiac opacity obscuring the hemidiaphragm is unchanged. Pleural [...] Signed Report (CONTINUED) FAX: Radha Ward MD [phone] [place]: St: ADM FAX: [place] [phone] FAX: Ana [phone] Name: SHERRI ARCE [facility] : 1940 Age/S: 81/M [address] [place] [address] Unit #: [id number] Loc: [address] [address] Phys: Rosalind Puentes PREMIUM CARD CANCELLATION CLERK Acct: [id number] Dis Date: Status: ADM IN PHONE #: [phone] Exam Date: 07/10/2022525 FAX #: [phone] Reason: Cardiac Surgery Post Op Report Has Been Amended EXAMS: CPT CODE: [id number] XR CHEST 1 V 18699 (Continued) thoracostomy tube in place. 2. Stable pulmonary opacities likely combination of airspace disease and atelectasis. 3. Stable small pleural effusions. 4. Stable postoperative cardiomediastinal silhouette. at 0830 Reported and signed by: Babak Ratliff M.D. CC: Radha Ward MD; [place] DO; Rosalind Toribio NP Technologist: Ines Marley, (R) Trnscrd Date/Time/By: 07/10/2022 (0830) : By: Robert Orig Print D/T: S: 07/10/2022 (31) PAGE 2 Signed ReportBASIC METABOLIC [id number] 23:54:00* Test Item Value Reference Range Interpretation Comme nts SODIUM (test code = NA/ABG) 139 mmol/L 134-147 N POTASSIUM (test code = K/ABG) 4.6 mmol/L 3.4-5.0 N CHLORIDE (test code = CL/ABG) 102 mmol/L 100-108 N CREATININE ABG (test code = CREAABG) 2.9 mg/dL 0.8-1.3 H POC IONIZED CALCIUM (test co de = POCCA) 1.22 MMOL/L 1.12-1.32 N POC GLUCOSE (test code = POCGLU) 152 MG/DL 70-110 H HEMOGLOBIN [id number] 23:54:00* Test Item Value Reference Range Interpretation Comme nts HEMOGLOBIN ABG (test code = HGB/ABG) 8.1 G/DL 12.5-16.9 L [id number] 23:54:00* Test Item Value Reference Range Interpretation Comme nts HEMATOCRIT (test code = HCT/ABG) 24 % 37.5-50.7 L POC LACTIC [id number] 23:54:00* Test Item Value Reference Range Interpretation Comme nts POC LACTIC ACID (test code = POCLAC) 0.6 mmol/l 0.9-1.7 L POC VENOUS BLOOD [id number] 23:54:00* Test Item Value Reference Range Interpretation Comme nts POC VENOUS BLOOD GAS PH (marcie t code = POCPHV) 7.361 7.33-7.45 N POC VENOUS BLOOD GAS PCO2 (t est code = AGNNYR9K) 46.8 mmHg 43-47 N POC VENOUS BLOOD GAS PO2 (te st code = BUMCX1U) 33.2 mmHG 10-50 N POC TCO2 VENOUS (test code = [id number]) 27.9 POC HCO3 VENOUS (test code = [id number]) 26.5 MMOL/L 22-27 N POC BASE EXCESS VENOUS (test code = POCBEV) 1.1 MMOL/L -4.0-4.0 N POC O2 SATURATION VENOUS (te st code = ZNRH6NK) 61.0 % 60-80 N VENOUS BLOOD GAS DELIVERY (t est code = DELV) HFNC VENOUS BLOOD GAS SITE (test code = SITEV) [place] [facility] BASIC METABOLIC [id number] 22:13:00* Test Item Value Reference Range Interpretation Comme nts SODIUM (test code = NA) 142 mEq/L 134-147 N POTASSIUM (test code = K) 5.0 mEq/L 3.4-5.0 N CHLORIDE (test code = CL) 109 mEq/L 100-108 H CARBON DIOXIDE (test code = CO2) 26 mEq/l 21-33 N ANION GAP (test code = GAP) 12 0-20 N GLUCOSE (test code = GLU) 127 mg/dL 70-110 H BLOOD UREA NITROGEN (test code = BUN) 27 mg/dL 7-18 H GLOMERULAR FILTRATION RATE (test code = GFR) 22.3 70-80 L The Glomerular Filtration Rate is a calculated parameterbased on serum Creatinine, patient age and sex. GFR valuesless than 60 mL/min/1.73 square meters are indicative ofChronic Kidney Disease. Values less than 15 mL/min/1.73square meters indicate Kidney failure. The calculation forGFR is based on the CKD-EPI (202) calculation. This formulais race indifferent and is the recommended formula for GFRby the National Kidney Foundation for Adults.The GFR will not calculate if the sex is unknown or if thepatient's age is <18 years. CREATININE (test code = CREAT) 2.8 mg/dL 0.6-1.3 H CALCIUM (test code = CA) 7.9 mg/dL 8.0-10.5 L [id number] 22:13:00* Test Item Value Reference Range Interpretation Comme nts PHOSPHOROUS (test code = PHOS) 4.1 MG/DL 2.5-4.9 N [id number] 22:13:00* Test Item Value Reference Range Interpretation Comme nts MAGNESIUM (test code = MAG) 2.25 mg/dL 1.80-2.40 N CALCIUM [id number] 22:13:00* Test Item Value Reference Range Interpretation Comme nts CALCIUM IONIZED (test code = ARVIN) 1.11 MMOL/L 1.09-1.30 N POC ARTERIAL BLOOD [id number] 21:34:00* Test Item Value Reference Range Interpretation Comme nts POC ARTERIAL BLOOD GAS PH (t est code = POCPHA) 7.373 7.35-7.45 N POC ARTERIAL BLOOD GAS PCO2 (test code = [id number]) 43.6 mmHg 35.0-45 N POC TCO2 ARTERIAL (test code = POCTCO2) 26.8 POC ARTERIAL BLOOD GAS PO2 ( test code = ERCJH6R) 69.7 mmHg 80-100.0 L POC HCO3 ARTERIAL (test code = UJRFSR3P) 25.4 MMOL/L 22.0-26.0 N POC BASE EXCESS (test code = POCBEA) 0.2 MMOL/L -4.0-4.0 N POC O2 SATURATION (test code = POCO2S) 93.2 % 90-100 N ABG DELIVERY (test code = JH) HFNC ABG SITE (test code = SITEA) Art Line BASIC METABOLIC [id number] 21:34:00* Test Item Value Reference Range Interpretation Comme nts SODIUM (test code = NA/ABG) 140 mmol/L 134-147 N POTASSIUM (test code = K/ABG) 4.8 mmol/L 3.4-5.0 N CHLORIDE (test code = CL/ABG) 105 mmol/L 100-108 N CREATININE ABG (test code = CREAABG) 3.0 mg/dL 0.8-1.3 H POC IONIZED CALCIUM (test co de = POCCA) 1.18 MMOL/L 1.12-1.32 N POC GLUCOSE (test code = POCGLU) 132 MG/DL 70-110 H HEMOGLOBIN [id number] 21:34:00* Test Item Value Reference Range Interpretation Comme nts HEMOGLOBIN ABG (test code = HGB/ABG) 7.8 G/DL 12.5-16.9 L [id number] 21:34:00* Test Item Value Reference Range Interpretation Comme nts HEMATOCRIT (test code = HCT/ABG) 23 % 37.5-50.7 L POC LACTIC [id number] 21:34:00* Test Item Value Reference Range Interpretation Comme nts POC LACTIC ACID (test code = POCLAC) 0.8 mmol/l 0.9-1.7 L GLUCOSE [id number] 20:28:00* Test Item Value Reference Range Interpretation Comme nts GLUCOSE BEDSIDE (test code = GLUBED) 104 MG/DL 70-110 N Performed by cer tified pick pulling machine operator at [facility] POC ARTERIAL BLOOD [id number] 18:43:00* Test Item Value Reference Range Interpretation Comme nts POC ARTERIAL BLOOD GAS PH (t est code = POCPHA) 7.346 7.35-7.45 L POC ARTERIAL BLOOD GAS PCO2 (test code = BAGPCV7I) 45.9 mmHg 35.0-45 H POC TCO2 ARTERIAL (test code = POCTCO2) 26.5 POC ARTERIAL BLOOD GAS PO2 ( test code = EBLUE0Z) 50.5 mmHg 80-100.0 L POC HCO3 ARTERIAL (test code = BXFYIP9F) 25.1 MMOL/L 22.0-26.0 N POC BASE EXCESS (test code = POCBEA) -0.6 MMOL/L -4.0-4.0 N POC O2 SATURATION (test code = POCO2S) 83.1 % 90-100 L ABG DELIVERY (test code = JH) Room Air ABG SITE (test code = SITEA) R Radial BASIC METABOLIC [id number] 18:43:00* Test Item Value Reference Range Interpretation Comme nts SODIUM (test code = NA/ABG) 141 mmol/L 134-147 N POTASSIUM (test code = K/ABG) 4.6 mmol/L 3.4-5.0 N CHLORIDE (test code = CL/ABG) 106 mmol/L 100-108 N CREATININE ABG (test code = CREAABG) 3.2 mg/dL 0.8-1.3 H POC IONIZED CALCIUM (test co de = POCCA) 1.16 MMOL/L 1.12-1.32 N POC GLUCOSE (test code = POCGLU) 115 MG/DL 70-110 H HEMOGLOBIN [id number] 18:43:00* Test Item Value Reference Range Interpretation Comme nts HEMOGLOBIN ABG (test code = HGB/ABG) 8.3 G/DL 12.5-16.9 L [id number] 18:43:00* Test Item Value Reference Range Interpretation Comme nts HEMATOCRIT (test code = HCT/ABG) 25 % 37.5-50.7 L POC LACTIC [id number] 18:43:00* Test Item Value Reference Range Interpretation Comme nts POC LACTIC ACID (test code = POCLAC) 1.1 mmol/l 0.9-1.7 N BASIC METABOLIC [id number] 16:20:00* Test Item Value Reference Range Interpretation Comme nts SODIUM (test code = NA) 143 mEq/L 134-147 N POTASSIUM (test code = K) 4.8 mEq/L 3.4-5.0 N CHLORIDE (test code = CL) 109 mEq/L 100-108 H CARBON DIOXIDE (test code = CO2) 26 mEq/l 21-33 N ANION GAP (test code = GAP) 13 0-20 N GLUCOSE (test code = GLU) 138 mg/dL 70-110 H BLOOD UREA NITROGEN (test code = BUN) 29 mg/dL 7-18 H GLOMERULAR FILTRATION RATE (test code = GFR) 19.0 70-80 L The Glomerular Filtration Rate is a calculated parameterbased on serum Creatinine, patient age and sex. GFR valuesless than 60 mL/min/1.73 square meters are indicative ofChronic Kidney Disease. Values less than 15 mL/min/1.73square meters indicate Kidney failure. The calculation forGFR is based on the CKD-EPI (2020) calculation. This formulais race indifferent and is the recommended formula for GFRby the National Kidney Foundation for Adults.The GFR will not calculate if the sex is unknown or if thepatient's age is <18 years. CREATININE (test code = CREAT) 3.2 mg/dL 0.6-1.3 H CALCIUM (test code = CA) 8.7 mg/dL 8.0-10.5 N [id number] 16:20:00* Test Item Value Reference Range Interpretation Comme nts MAGNESIUM (test code = MAG) 2.28 mg/dL 1.80-2.40 N CALCIUM [id number] 16:20:00* Test Item Value Reference Range Interpretation Comme nts CALCIUM IONIZED (test code = ARVIN) 1.16 MMOL/L 1.09-1.30 N CBC W/AUTO [id number] 16:10:00* Test Item Value Reference Range Interpretation Comme nts WHITE BLOOD CELL (test code = WBC) 20.9 x10 3/uL 4.5-11.0 H RED BLOOD CELL (test code = RBC) 2.60 x10 6/uL 4.00-5.60 L HEMOGLOBIN (test code = HGB) 7.9 g/dL 12.5-16.9 L HEMATOCRIT (test code = HCT) 25.0 % 37.5-50.7 L MEAN CELL VOLUME (test code = MCV) 96.2 fL 81.0-99.0 MEAN CELL HGB (test code = MCH) 30.4 pg 27.0-33.0 N MEAN CELL HGB CONCETRATION (test code = MCHC) 31.6 g/dL 33.0-37.0 L RED CELL DISTRIBUTION WIDTH CV (test code = RDW) 18.3 % 11.5-14.5 H RED CELL DISTRIBUTION WIDTH SD (test code = RDW-SD) 63.5 fL 37.0-54.0 H PLATELET COUNT (test code = PLT) 83 x10 3/uL 150-400 L MEAN PLATELET VOLUME (test code = MPV) 11.3 fL 7.0-9.0 H NEUTROPHIL % (test code = NT%) 87.1 % 56.0-77.0 H IMMATURE GRANULOCYTE % (test code = IG%) 0.8 % 0.0-2.0 N LYMPHOCYTE % (test code = LY%) 3.9 % 14.0-32.0 L MONOCYTE % (test code = MO%) 7.9 % 4.8-9.0 N EOSINOPHIL % (test code = EO%) 0.0 % 0.3-3.7 L BASOPHIL % (test code = BA%) 0.3 % 0.0-2.0 N NUCLEATED RBC % (test code = NRBC%) 0.0 % 0-0 N NEUTROPHIL # (test code = NT#) 18.20 x10 3/uL 2.0-7.6 H IMMATURE GRANULOCYTE # (test code = IG#) 0.16 x10 3/uL 0.00-0.03 H LYMPHOCYTE # (test code = LY#) 0.82 x10 3/uL 1.0-3.8 L MONOCYTE # (test code = MO#) 1.66 x10 3/uL 0.1-0.8 H EOSINOPHIL # (test code = EO#) 0.01 x10 3/uL 0.0-0.2 N BASOPHIL # (test code = BA#) 0.06 x10 3/uL 0.0-0.2 N NUCLEATED RBC # (test code = NRBC#) 0.00 x10 3/uL 0.0-0.1 N MANUAL DIFF REQUIRED (test code = MDIFF) NO BASIC METABOLIC [id number] 13:20:00* Test Item Value Reference Range Interpretation Comme nts SODIUM (test code = NA) 145 mEq/L 134-147 N POTASSIUM (test code = K) 5.3 mEq/L 3.4-5.0 H CHLORIDE (test code = CL) 111 mEq/L 100-108 H CARBON DIOXIDE (test code = CO2) 24 mEq/l 21-33 N ANION GAP (test code = GAP) 15 0-20 N GLUCOSE (test code = GLU) 178 mg/dL 70-110 H BLOOD UREA NITROGEN (test code = BUN) 36 mg/dL 7-18 H GLOMERULAR FILTRATION RATE (test code = GFR) 15.0 70-80 L The Glomerular Filtration Rate is a calculated parameterbased on serum Creatinine, patient age and sex. GFR valuesless than 60 mL/min/1.73 square meters are indicative ofChronic Kidney Disease. Values less than 15 mL/min/1.73square meters indicate Kidney failure. The calculation forGFR is based on the CKD-EPI (2020) calculation. This formulais race indifferent and is the recommended formula for GFRby the National Kidney Foundation for Adults.The GFR will not calculate if the sex is unknown or if thepatient's age is <18 years. CREATININE (test code = CREAT) 3.9 mg/dL 0.6-1.3 H CALCIUM (test code = CA) 7.8 mg/dL 8.0-10.5 L [id number] 13:20:00* Test Item Value Reference Range Interpretation Comme nts PHOSPHOROUS (test code = PHOS) 4.3 MG/DL 2.5-4.9 N [id number] 13:20:00* Test Item Value Reference Range Interpretation Comme nts MAGNESIUM (test code = MAG) 2.37 mg/dL 1.80-2.40 N CALCIUM [id number] 13:20:00* Test Item Value Reference Range Interpretation Comme nts CALCIUM IONIZED (test code = ARVIN) 1.08 MMOL/L 1.09-1.30 L GLUCOSE [id number] 12:56:00* Test Item Value Reference Range Interpretation Comme nts GLUCOSE BEDSIDE (test code = GLUBED) 162 MG/DL 70-110 H Performed by cer yusef pick pulling machine operator at [facility] POC ARTERIAL BLOOD [id number] 10:35:00* Test Item Value Reference Range Interpretation Comme nts POC ARTERIAL BLOOD GAS PH (t est code = POCPHA) 7.351 7.35-7.45 N POC ARTERIAL BLOOD GAS PCO2 (test code = MUTNBH9S) 45.1 mmHg 35.0-45 H POC TCO2 ARTERIAL (test code = POCTCO2) 26.3 POC ARTERIAL BLOOD GAS PO2 ( test code = JPZBZ6P) 73.8 mmHg 80-100.0 L POC HCO3 ARTERIAL (test code = LOOPEG9S) 25.0 MMOL/L 22.0-26.0 N POC BASE EXCESS (test code = POCBEA) -0.6 MMOL/L -4.0-4.0 N POC O2 SATURATION (test code = POCO2S) 93.8 % 90-100 N ABG DELIVERY (test code = JH) Cannula ABG SITE (test code = SITEA) Art Line BASIC METABOLIC [id number] 10:35:00* Test Item Value Reference Range Interpretation Comme nts SODIUM (test code = NA/ABG) 144 mmol/L 134-147 N POTASSIUM (test code = K/ABG) 5.0 mmol/L 3.4-5.0 N CHLORIDE (test code = CL/ABG) 109 mmol/L 100-108 H CREATININE ABG (test code = CREAABG) 3.8 mg/dL 0.8-1.3 H POC IONIZED CALCIUM (test co de = POCCA) 1.16 MMOL/L 1.12-1.32 N POC GLUCOSE (test code = POCGLU) 145 MG/DL 70-110 H HEMOGLOBIN [id number] 10:35:00* Test Item Value Reference Range Interpretation Comme nts HEMOGLOBIN ABG (test code = HGB/ABG) 7.3 G/DL 12.5-16.9 L [id number] 10:35:00* Test Item Value Reference Range Interpretation Comme nts HEMATOCRIT (test code = HCT/ABG) 21 % 37.5-50.7 L POC LACTIC [id number] 10:35:00* Test Item Value Reference Range Interpretation Comme nts POC LACTIC ACID (test code = POCLAC) 2.0 mmol/l 0.9-1.7 H GLUCOSE [id number] 08:55:00* Test Item Value Reference Range Interpretation Comme nts GLUCOSE BEDSIDE (test code = GLUBED) 154 MG/DL 70-110 H Performed by cer tified pick pulling machine operator at [facility] GLUCOSE [id number] 07:51:00* Test Item Value Reference Range Interpretation Comme nts GLUCOSE BEDSIDE (test code = GLUBED) 178 MG/DL 70-110 H Performed by cer yusef pick pulling machine operator at [facility] CBC W/AUTO [id number] 03:38:00* Test Item Value Reference Range Interpretation Comme nts WHITE BLOOD CELL (test code = WBC) 24.9 x10 3/uL 4.5-11.0 H RED BLOOD CELL (test code = RBC) 2.13 x10 6/uL 4.00-5.60 L HEMOGLOBIN (test code = HGB) 6.5 g/dL 12.5-16.9 L HEMATOCRIT (test code = HCT) 21.5 % 37.5-50.7 L MEAN CELL VOLUME (test code = MCV) 100.9 fL 81.0-99.0 H MEAN CELL HGB (test code = MCH) 30.5 pg 27.0-33.0 N MEAN CELL HGB CONCETRATION (test code = MCHC) 30.2 g/dL 33.0-37.0 L RED CELL DISTRIBUTION WIDTH CV (test code = RDW) 16.3 % 11.5-14.5 H RED CELL DISTRIBUTION WIDTH SD (test code = RDW-SD) 60.5 fL 37.0-54.0 H PLATELET COUNT (test code = PLT) 91 x10 3/uL 150-400 L MEAN PLATELET VOLUME (test code = MPV) 11.3 fL 7.0-9.0 H NEUTROPHIL % (test code = NT%) 90.8 % 56.0-77.0 H IMMATURE GRANULOCYTE % (test code = IG%) 1.2 % 0.0-2.0 N LYMPHOCYTE % (test code = LY%) 1.2 % 14.0-32.0 L MONOCYTE % (test code = MO%) 6.6 % 4.8-9.0 N EOSINOPHIL % (test code = EO%) 0.0 % 0.3-3.7 L BASOPHIL % (test code = BA%) 0.2 % 0.0-2.0 N NUCLEATED RBC % (test code = NRBC%) 0.0 % 0-0 N NEUTROPHIL # (test code = NT#) 22.60 x10 3/uL 2.0-7.6 H IMMATURE GRANULOCYTE # (test code = IG#) 0.29 x10 3/uL 0.00-0.03 H LYMPHOCYTE # (test code = LY#) 0.31 x10 3/uL 1.0-3.8 L MONOCYTE # (test code = MO#) 1.65 x10 3/uL 0.1-0.8 H EOSINOPHIL # (test code = EO#) 0.00 x10 3/uL 0.0-0.2 N BASOPHIL # (test code = BA#) 0.04 x10 3/uL 0.0-0.2 N NUCLEATED RBC # (test code = NRBC#) 0.00 x10 3/uL 0.0-0.1 N MANUAL DIFF REQUIRED (test code = MDIFF) NO PLT [id number] 03:38:00* Test Item Value Reference Range Interpretation Comme nts PLATELET ESTIMATE (test code = PLTEST) 92 TO 115 THOUSAND ADEQUATE PLATELET MORPHOLOGY (test code = PLTMORPH) LARGE PLATELETS BASIC METABOLIC [id number] 03:38:00* Test Item Value Reference Range Interpretation Comme nts SODIUM (test code = NA) 149 mEq/L 134-147 H POTASSIUM (test code = K) 4.3 mEq/L 3.4-5.0 N CHLORIDE (test code = CL) 111 mEq/L 100-108 H CARBON DIOXIDE (test code = CO2) 23 mEq/l 21-33 N ANION GAP (test code = GAP) 20 0-20 N GLUCOSE (test code = GLU) 241 mg/dL 70-110 H BLOOD UREA NITROGEN (test code = BUN) 38 mg/dL 7-18 H GLOMERULAR FILTRATION RATE (test code = GFR) 12.3 70-80 L The Glomerular Filtration Rate is a calculated parameterbased on serum Creatinine, patient age and sex. GFR valuesless than 60 mL/min/1.73 square meters are indicative ofChronic Kidney Disease. Values less than 15 mL/min/1.73square meters indicate Kidney failure. The calculation forGFR is based on the CKD-EPI (2020) calculation. This formulais race indifferent and is the recommended formula for GFRby the National Kidney Foundation for Adults.The GFR will not calculate if the sex is unknown or if thepatient's age is <18 years. CREATININE (test code = CREAT) 4.6 mg/dL 0.6-1.3 H CALCIUM (test code = CA) 8.9 mg/dL 8.0-10.5 N COMMENTS: POD #1HEPATIC FUNCTION [id number] 03:38:00* Test Item Value Reference Range Interpretation Comme nts TOTAL PROTEIN (test code = PROT) 5.5 g/dL 6.4-8.2 L ALBUMIN (test code = ALB) 3.60 g/dL 3.4-5.0 N BILIRUBIN TOTAL (test code = BILT) 0.20 mg/dL 0.0-1.0 N BILIRUBIN DIRECT (test code = BILD) 0.10 MG/DL 0.0-0.30 N BILIRUBIN INDIRECT (test cod e = BILIND) 0.10 MG/DL SGOT/AST (test code = AST) 46 IUnit/L 15-37 H SGPT/ALT (test code = ALT) 15 IUnit/L 30-65 L ALKALINE PHOSPHATASE TOTAL ( test code = ALKP) 40 IUnit/L 20-125 COMMENTS: POD #[id number] 03:38:00* Test Item Value Reference Range Interpretation Comme nts MAGNESIUM (test code = MAG) 2.45 mg/dL 1.80-2.40 H COMMENTS: POD #1BASIC METABOLIC [id number] 03:37:00* Test Item Value Reference Range Interpretation Comme nts SODIUM (test code = NA/ABG) 147 mmol/L 134-147 N POTASSIUM (test code = K/ABG) 4.1 mmol/L 3.4-5.0 N CHLORIDE (test code = CL/ABG) 112 mmol/L 100-108 H CREATININE ABG (test code = CREAABG) 4.4 mg/dL 0.8-1.3 H POC IONIZED CALCIUM (test co de = POCCA) 1.20 MMOL/L 1.12-1.32 N POC GLUCOSE (test code = POCGLU) 229 MG/DL 70-110 H HEMOGLOBIN [id number] 03:37:00* Test Item Value Reference Range Interpretation Comme nts HEMOGLOBIN ABG (test code = HGB/ABG) 6.5 G/DL 12.5-16.9 L [id number] 03:37:00* Test Item Value Reference Range Interpretation Comme nts HEMATOCRIT (test code = HCT/ABG) 19 % 37.5-50.7 L POC LACTIC [id number] 03:37:00* Test Item Value Reference Range Interpretation Comme nts POC LACTIC ACID (test code = POCLAC) 5.9 mmol/l 0.9-1.7 HH POC VENOUS BLOOD [id number] 03:37:00* Test Item Value Reference Range Interpretation Comme nts MARYLU'S TEST (test code = ALLENS) N/A POC VENOUS BLOOD GAS PH (marcie t code = POCPHV) 7.277 7.33-7.45 L POC VENOUS BLOOD GAS PCO2 (t est code = YNHNVN0R) 45.0 mmHg 43-47 N POC VENOUS BLOOD GAS PO2 (te st code = GNFUK4V) 35.4 mmHG 10-50 N POC TCO2 VENOUS (test code = SVVMJA3C) 22.4 POC HCO3 VENOUS (test code = AYQAGX0D) 21.0 MMOL/L 22-27 L POC BASE EXCESS VENOUS (test code = POCBEV) -5.8 MMOL/L -4.0-4.0 L POC O2 SATURATION VENOUS (te st code = GVVU6JN) 60.2 % 60-80 N VENOUS BLOOD GAS DELIVERY (t est code = DELV) Cannula VENOUS BLOOD GAS TEMP (test code = TEMPV) 98.6 F VENOUS BLOOD GAS SITE (test code = SITEV) Colby Canales LACTIC [id number] 03:32:00* Test Item Value Reference Range Interpretation Comme nts LACTIC ACID (test code = LACT) 6.0 mmol/L 0.4-1.9 HH Critical result called to HALINA MedinaLA50 at 0332 07/09/22Nurse read back result and tech confirmed it's correct? YES POC ARTERIAL BLOOD [id number] 03:13:00* Test Item Value Reference Range Interpretation Comme nts POC ARTERIAL BLOOD GAS PH (t est code = POCPHA) 7.310 7.35-7.45 L POC ARTERIAL BLOOD GAS PCO2 (test code = JEIUOV2Y) 42.8 mmHg 35.0-45 N POC TCO2 ARTERIAL (test code = POCTCO2) 22.8 POC ARTERIAL BLOOD GAS PO2 ( test code = MIEVX0V) 73.2 mmHg 80-100.0 L POC HCO3 ARTERIAL (test code = ECCMSR4R) 21.5 MMOL/L 22.0-26.0 L POC BASE EXCESS (test code = POCBEA) -4.7 MMOL/L -4.0-4.0 L POC O2 SATURATION (test code = POCO2S) 93.0 % 90-100 N ABG DELIVERY (test code = JH) Cannula ABG TEMPERATURE (test code = TEMPA) 98.6 F ABG SITE (test code = SITEA) Art Line MARYLU'S TEST (test code = ALLENS) N/A BASIC METABOLIC [id number] 03:13:00* Test Item Value Reference Range Interpretation Comme nts SODIUM (test code = NA/ABG) 146 mmol/L 134-147 N POTASSIUM (test code = K/ABG) 4.1 mmol/L 3.4-5.0 N CHLORIDE (test code = CL/ABG) 110 mmol/L 100-108 H CREATININE ABG (test code = CREAABG) 4.4 mg/dL 0.8-1.3 H POC IONIZED CALCIUM (test co de = POCCA) 1.23 MMOL/L 1.12-1.32 N POC GLUCOSE (test code = POCGLU) 245 MG/DL 70-110 H HEMOGLOBIN [id number] 03:13:00* Test Item Value Reference Range Interpretation Comme nts HEMOGLOBIN ABG (test code = HGB/ABG) 7.0 G/DL 12.5-16.9 L [id number] 03:13:00* Test Item Value Reference Range Interpretation Comme nts HEMATOCRIT (test code = HCT/ABG) 21 % 37.5-50.7 L POC LACTIC [id number] 03:13:00* Test Item Value Reference Range Interpretation Comme nts POC LACTIC ACID (test code = POCLAC) 6.1 mmol/l 0.9-1.7 HH POC ARTERIAL BLOOD [id number] 03:01:00* Test Item Value Reference Range Interpretation Comme nts POC ARTERIAL BLOOD GAS PH (t est code = POCPHA) 7.273 7.35-7.45 LL POC ARTERIAL BLOOD GAS PCO2 (test code = QGFNWZ6W) 46.4 mmHg 35.0-45 H POC TCO2 ARTERIAL (test code = POCTCO2) 23.1 POC ARTERIAL BLOOD GAS PO2 ( test code = MXUML5J) 103.4 mmHg 80-100.0 H POC HCO3 ARTERIAL (test code = XZSEKJ0Y) 21.6 MMOL/L 22.0-26.0 L POC BASE EXCESS (test code = POCBEA) -5.4 MMOL/L -4.0-4.0 L POC O2 SATURATION (test code = POCO2S) 97.3 % 90-100 N ABG DELIVERY (test code = JH) Adult Vent ABG VENT MODE (test code = MODEA) PS ABG PEEP (test code = PEEPA) 5 cmH2O ABG PRESSURE SUPPORT (test c ode = PSABG) 10 cmH2O ABG TEMPERATURE (test code = TEMPA) 97.2 F ABG SITE (test code = SITEA) Art Line MARYLU'S TEST (test code = ALLENS) N/A BASIC METABOLIC [id number] 03:01:00* Test Item Value Reference Range Interpretation Comme nts SODIUM (test code = NA/ABG) 146 mmol/L 134-147 N POTASSIUM (test code = K/ABG) 3.9 mmol/L 3.4-5.0 N CHLORIDE (test code = CL/ABG) 113 mmol/L 100-108 H CREATININE ABG (test code = CREAABG) 3.9 mg/dL 0.8-1.3 H POC IONIZED CALCIUM (test co de = POCCA) 1.29 MMOL/L 1.12-1.32 N POC GLUCOSE (test code = POCGLU) 206 MG/DL 70-110 H HEMOGLOBIN [id number] 03:01:00* Test Item Value Reference Range Interpretation Comme nts HEMOGLOBIN ABG (test code = HGB/ABG) 8.7 G/DL 12.5-16.9 L [id number] 03:01:00* Test Item Value Reference Range Interpretation Comme nts HEMATOCRIT (test code = HCT/ABG) 26 % 37.5-50.7 L POC LACTIC [id number] 03:01:00* Test Item Value Reference Range Interpretation Comme nts POC LACTIC ACID (test code = POCLAC) 3.6 mmol/l 0.9-1.7 H GLUCOSE [id number] 02:45:00* Test Item Value Reference Range Interpretation Comme nts GLUCOSE BEDSIDE (test code = GLUBED) 230 MG/DL 70-110 H Performed by cer yusef pick pulling machine operator at [facility] LACTIC ACID 2ND [id number] 02:04:00* Test Item Value Reference Range Interpretation Comme nts LACTIC ACID 2ND REPEAT (test code = LACT2) 6.6 mmol/L 0.4-1.9 HH - XR CHEST 1 [id number] 00:00:00 [facility] 1940 Sex: M FAX: Radha Ward MD [phone] [place]: St: ADM FAX: [place] [phone] FAX: Ana Toribio [phone] Name: SHAYLEE ARCEE [facility] : 1940 Age/S: 81/M [address] [place] [address] Unit #: [id number] Loc: GRaoul[address] [address] Phys: Rosalind Puentes [employer]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 Views: 1 view. COMPARISON: CR XR CHEST 1V 07/08/2022 7:14 PM FINDINGS: Tubes, catheters and devices: Endotracheal tube and enteric tube have been removed. [place] catheter tip at the level of pulmonary [...] [place] DO; Rosalind Toribio NP Technologist: RAYMUNDO Callejas) Trnscrd Date/Time/By: 07/09/2022 (0955) : By: Robert Orig Print D/T: S: 07/09/2022 ([id number]) PAGE 1 Signed ReportPO ARTERIAL BLOOD GAS 2022-07-08 23:43:00* Test Item Value Reference Range Interpretation Comme nts POC ARTERIAL BLOOD GAS PH (t est code = POCPHA) 7.299 7.35-7.45 LL POC ARTERIAL BLOOD GAS PCO2 (test code = XELBQR1T) 41.3 mmHg 35.0-45 N POC TCO2 ARTERIAL (test code = POCTCO2) 21.5 POC ARTERIAL BLOOD GAS PO2 ( test code = QXKRI2B) 109.2 mmHg 80-100.0 H POC HCO3 ARTERIAL (test code = IDRKMB1M) 20.3 MMOL/L 22.0-26.0 L POC BASE EXCESS (test code = POCBEA) -6.2 MMOL/L -4.0-4.0 L POC O2 SATURATION (test code = POCO2S) 97.7 % 90-100 N ABG DELIVERY (test code = JH) Cannula ABG TEMPERATURE (test code = TEMPA) 98.6 F ABG SITE (test code = SITEA) Art Line MARYLU'S TEST (test code = ALLENS) N/A BASIC METABOLIC [id number] 23:43:00* Test Item Value Reference Range Interpretation Comme nts SODIUM (test code = NA/ABG) 148 mmol/L 134-147 H POTASSIUM (test code = K/ABG) 3.5 mmol/L 3.4-5.0 N CHLORIDE (test code = CL/ABG) 114 mmol/L 100-108 H CREATININE ABG (test code = CREAABG) 4.1 mg/dL 0.8-1.3 H POC IONIZED CALCIUM (test co de = POCCA) 1.18 MMOL/L 1.12-1.32 N POC GLUCOSE (test code = POCGLU) 234 MG/DL 70-110 H HEMOGLOBIN [id number] 23:43:00* Test Item Value Reference Range Interpretation Comme nts HEMOGLOBIN ABG (test code = HGB/ABG) 7.7 G/DL 12.5-16.9 L [id number] 23:43:00* Test Item Value Reference Range Interpretation Comme nts HEMATOCRIT (test code = HCT/ABG) 23 % 37.5-50.7 L POC LACTIC [id number] 23:43:00* Test Item Value Reference Range Interpretation Comme nts POC LACTIC ACID (test code = POCLAC) 5.1 mmol/l 0.9-1.7 HH LACTIC ACID [id number] 22:54:00* Test Item Value Reference Range Interpretation Comme nts LACTIC ACID REPEAT (test cod e = LACTR) 5.0 mmol/l 0.4-1.9 HH BASIC METABOLIC [id number] 20:54:00* Test Item Value Reference Range Interpretation Comme nts SODIUM (test code = NA/ABG) 148 mmol/L 134-147 H POTASSIUM (test code = K/ABG) 3.6 mmol/L 3.4-5.0 N CHLORIDE (test code = CL/ABG) 115 mmol/L 100-108 H CREATININE ABG (test code = CREAABG) 3.9 mg/dL 0.8-1.3 H POC IONIZED CALCIUM (test co de = POCCA) 1.26 MMOL/L 1.12-1.32 N POC GLUCOSE (test code = POCGLU) 190 MG/DL 70-110 H HEMOGLOBIN [id number] 20:54:00* Test Item Value Reference Range Interpretation Comme nts HEMOGLOBIN ABG (test code = HGB/ABG) 8.0 G/DL 12.5-16.9 L [id number] 20:54:00* Test Item Value Reference Range Interpretation Comme nts HEMATOCRIT (test code = HCT/ABG) 23 % 37.5-50.7 L POC LACTIC [id number] 20:54:00* Test Item Value Reference Range Interpretation Comme nts POC LACTIC ACID (test code = POCLAC) 2.5 mmol/l 0.9-1.7 H POC VENOUS BLOOD [id number] 20:54:00* Test Item Value Reference Range Interpretation Comme nts MARYLU'S TEST (test code = ALLENS) N/A POC VENOUS BLOOD GAS PH (marcie t code = POCPHV) 7.265 7.33-7.45 L POC VENOUS BLOOD GAS PCO2 (t est code = KXGCVX0K) 48.5 mmHg 43-47 H POC VENOUS BLOOD GAS PO2 (te st code = JPMOE3H) 41.1 mmHG 10-50 N POC TCO2 VENOUS (test code = WHXZOV5P) 23.9 POC HCO3 VENOUS (test code = JJSMDO8L) 22.3 MMOL/L 22-27 N POC BASE EXCESS VENOUS (test code = POCBEV) -4.9 MMOL/L -4.0-4.0 L POC O2 SATURATION VENOUS (te st code = CPME7KW) 72.4 % 60-80 N VENOUS BLOOD GAS FIO2 (test code = FIO2V) 50 % VENOUS BLOOD GAS DELIVERY (t est code = DELV) Adult Vent VBG VENT MODE (test code = MODEV) SIMV TRISTON. BLOOD GAS RESP. RATE (t est code = RRV) 16 /min VBG TIDAL VOLUME (test code = TVV) 450 ml VENOUS BLOOD GAS PEEP (test code = PEEPV) 5 cmH2O VENOUS BLOOD GAS TEMP (test code = TEMPV) 96.4 F VENOUS BLOOD GAS SITE (test code = SITEV) Colby Canales CBC W/AUTO [id number] 20:37:00* Test Item Value Reference Range Interpretation Comme nts WHITE BLOOD CELL (test code = WBC) 39.6 x10 3/uL 4.5-11.0 H RED BLOOD CELL (test code = RBC) 2.45 x10 6/uL 4.00-5.60 L HEMOGLOBIN (test code = HGB) 7.6 g/dL 12.5-16.9 L HEMATOCRIT (test code = HCT) 24.6 % 37.5-50.7 L MEAN CELL VOLUME (test code = MCV) 100.4 fL 81.0-99.0 H MEAN CELL HGB (test code = MCH) 31.0 pg 27.0-33.0 N MEAN CELL HGB CONCETRATION (test code = MCHC) 30.9 g/dL 33.0-37.0 L RED CELL DISTRIBUTION WIDTH CV (test code = RDW) 16.1 % 11.5-14.5 H RED CELL DISTRIBUTION WIDTH SD (test code = RDW-SD) 59.1 fL 37.0-54.0 H PLATELET COUNT (test code = PLT) 133 x10 3/uL 150-400 L MEAN PLATELET VOLUME (test code = MPV) 11.1 fL 7.0-9.0 H NEUTROPHIL % (test code = NT%) 87.8 % 56.0-77.0 H LYMPHOCYTE % (test code = LY%) 3.5 % 14.0-32.0 L NEUTROPHIL # (test code = NT#) 34.72 x10 3/uL 2.0-7.6 H LYMPHOCYTE # (test code = LY#) 1.40 x10 3/uL 1.0-3.8 N MANUAL DIFF REQUIRED (test code = MDIFF) NO SLIDE REVIEW ED, CONSISTENT WITH AUTO DIFF. IMMATURE GRANULOCYTE % (test code = IG%) 3.1 % 0.0-2.0 H MONOCYTE % (test code = MO%) 3.9 % 4.8-9.0 L EOSINOPHIL % (test code = EO%) 1.4 % 0.3-3.7 N BASOPHIL % (test code = BA%) 0.3 % 0.0-2.0 N NUCLEATED RBC % (test code = NRBC%) 0.0 % 0-0 N IMMATURE GRANULOCYTE # (test code = IG#) 1.21 x10 3/uL 0.00-0.03 H MONOCYTE # (test code = MO#) 1.54 x10 3/uL 0.1-0.8 H EOSINOPHIL # (test code = EO#) 0.57 x10 3/uL 0.0-0.2 H BASOPHIL # (test code = BA#) 0.12 x10 3/uL 0.0-0.2 N NUCLEATED RBC # (test code = NRBC#) 0.00 x10 3/uL 0.0-0.1 N COMMENTS: On arrivalPROTHROMBIN [id number] 20:37:00* Test Item Value Reference Range Interpretation Comme nts PROTHROMBIN TIME PATIENT (test code = PTP) 16.2 SECONDS 9.3-12.9 H INTERNATIONAL NORMAL RATIO (test code = INR) 1.5 0.8-1.2 H TARGET INR BY INDICATION Indication INR1. Prophylaxis of venous thrombosis 2.0 - 3.0 (orthopedic surgery), Prophylaxis of venous thrombosis (other than high-risk surgery), Treatment of Deep Vein Thrombosis/Pulmonary Embolism, Prevention of systemic embolism - Tissue heart valves, Acute Myocardial Infarction (to prevent systemic embolism), Valvular heart disease, Atrial Fibrillation, Bileaflet mechanical valve in aortic position.2. Mechanical prosthetic valves (high risk), 2.5 - 3.5 Presence of Lupus Anticoagulant or Antiphospholipid Antibodies, Prevention of systemic embolism - Acute Myocardial Infarction (to prevent recurrent infarct). COMMENTS: On arrivalTHROMBOPLASTIN TIME [id number] 20:37:00* Test Item Value Reference Range Interpretation Comme nts THROMBOPLASTIN TIME PARTIAL (test code = PTT) 31.3 Seconds 25.0-39.5 N Therapeutic Rang e: 50.4 - 88.3 Seconds Effective 09/21/2018 COMMENTS: On arrivalBASIC METABOLIC [id number] 20:32:00* Test Item Value Reference Range Interpretation Comme nts SODIUM (test code = NA) 148 mEq/L 134-147 H POTASSIUM (test code = K) 4.0 mEq/L 3.4-5.0 N CHLORIDE (test code = CL) 114 mEq/L 100-108 H CARBON DIOXIDE (test code = CO2) 22 mEq/l 21-33 N ANION GAP (test code = GAP) 16 0-20 N GLUCOSE (test code = GLU) 197 mg/dL 70-110 H BLOOD UREA NITROGEN (test code = BUN) 37 mg/dL 7-18 H GLOMERULAR FILTRATION RATE (test code = GFR) 14.1 70-80 L The Glomerular Filtration Rate is a calculated parameterbased on serum Creatinine, patient age and sex. GFR valuesless than 60 mL/min/1.73 square meters are indicative ofChronic Kidney Disease. Values less than 15 mL/min/1.73square meters indicate Kidney failure. The calculation forGFR is based on the CKD-EPI (2020) calculation. This formulais race indifferent and is the recommended formula for GFRby the National Kidney Foundation for Adults.The GFR will not calculate if the sex is unknown or if thepatient's age is <18 years. CREATININE (test code = CREAT) 4.1 mg/dL 0.6-1.3 H CALCIUM (test code = CA) 7.6 mg/dL 8.0-10.5 L COMMENTS: On [id number] 20:32:00* Test Item Value Reference Range Interpretation Comme nts MAGNESIUM (test code = MAG) 2.53 mg/dL 1.80-2.40 H COMMENTS: On arrivalLACTIC [id number] 20:31:00* Test Item Value Reference Range Interpretation Comme nts LACTIC ACID (test code = LACT) 2.1 mmol/L 0.4-1.9 H POC ARTERIAL BLOOD [id number] 19:38:00* Test Item Value Reference Range Interpretation Comme nts POC ARTERIAL BLOOD GAS PH (t est code = POCPHA) 7.263 7.35-7.45 LL POC ARTERIAL BLOOD GAS PCO2 (test code = TVYGKJ4N) 44.1 mmHg 35.0-45 N POC TCO2 ARTERIAL (test code = POCTCO2) 21.5 POC ARTERIAL BLOOD GAS PO2 ( test code = MKGTC4S) 111.1 mmHg 80-100.0 H POC HCO3 ARTERIAL (test code = MGMABX4W) 20.1 MMOL/L 22.0-26.0 L POC BASE EXCESS (test code = POCBEA) -7.1 MMOL/L -4.0-4.0 L POC O2 SATURATION (test code = POCO2S) 97.7 % 90-100 N FIO2 (test code = FIO2A) 50 % PaO2/FiO2 (test code = VMY4HUG5) 222.20 mm/Hg ABG DELIVERY (test code = JH) Adult Vent ABG VENT MODE (test code = MODEA) AC ABG VENT RESP RATE (test cod e = RRA) 16 /MIN ABG TIDAL VOLUME (test code = TVA) 450 ml ABG PEEP (test code = PEEPA) 5 cmH2O ABG TEMPERATURE (test code = TEMPA) 97.3 F ABG SITE (test code = SITEA) Art Line BASIC METABOLIC [id number] 19:38:00* Test Item Value Reference Range Interpretation Comme nts SODIUM (test code = NA/ABG) 146 mmol/L 134-147 N POTASSIUM (test code = K/ABG) 3.9 mmol/L 3.4-5.0 N CHLORIDE (test code = CL/ABG) 114 mmol/L 100-108 H CREATININE ABG (test code = CREAABG) 3.9 mg/dL 0.8-1.3 H POC IONIZED CALCIUM (test co de = POCCA) 1.18 MMOL/L 1.12-1.32 N POC GLUCOSE (test code = POCGLU) 201 MG/DL 70-110 H HEMOGLOBIN [id number] 19:38:00* Test Item Value Reference Range Interpretation Comme nts HEMOGLOBIN ABG (test code = HGB/ABG) 8.3 G/DL 12.5-16.9 L [id number] 19:38:00* Test Item Value Reference Range Interpretation Comme nts HEMATOCRIT (test code = HCT/ABG) 24 % 37.5-50.7 L POC LACTIC [id number] 19:38:00* Test Item Value Reference Range Interpretation Comme nts POC LACTIC ACID (test code = POCLAC) 2.1 mmol/l 0.9-1.7 H [id number] 18:50:00* Test Item Value Reference Range Interpretation Comme nts ACT-ISTAT (test code = ACTI) 143 SEC 74-137 H Performed by cer tified pick pulling machine operator at [facility] POC ARTERIAL BLOOD [id number] 18:46:00* Test Item Value Reference Range Interpretation Comme nts POC ARTERIAL BLOOD GAS PH (t est code = POCPHA) 7.313 7.35-7.45 L POC ARTERIAL BLOOD GAS PCO2 (test code = WLBVQY8C) 36.8 mmHg 35.0-45 N POC TCO2 ARTERIAL (test code = POCTCO2) 19.8 POC ARTERIAL BLOOD GAS PO2 ( test code = HOMJR9X) 375.0 mmHg 80-100.0 HH POC HCO3 ARTERIAL (test code = ABBBPD8D) 18.7 MMOL/L 22.0-26.0 L POC BASE EXCESS (test code = POCBEA) -6.9 MMOL/L -4.0-4.0 L POC O2 SATURATION (test code = POCO2S) 99.9 % 90-100 N BASIC METABOLIC [id number] 18:46:00* Test Item Value Reference Range Interpretation Comme nts SODIUM (test code = NA/ABG) 147 mmol/L 134-147 N POTASSIUM (test code = K/ABG) 3.7 mmol/L 3.4-5.0 N CHLORIDE (test code = CL/ABG) 117 mmol/L 100-108 H CREATININE ABG (test code = CREAABG) 3.9 mg/dL 0.8-1.3 H POC IONIZED CALCIUM (test co de = POCCA) 1.06 MMOL/L 1.12-1.32 L POC GLUCOSE (test code = POCGLU) 181 MG/DL 70-110 H HEMOGLOBIN [id number] 18:46:00* Test Item Value Reference Range Interpretation Comme nts HEMOGLOBIN ABG (test code = HGB/ABG) 7.5 G/DL 12.5-16.9 L [id number] 18:46:00* Test Item Value Reference Range Interpretation Comme nts HEMATOCRIT (test code = HCT/ABG) 22 % 37.5-50.7 L POC LACTIC [id number] 18:46:00* Test Item Value Reference Range Interpretation Comme nts POC LACTIC ACID (test code = POCLAC) 2.5 mmol/l 0.9-1.7 H [id number] 17:57:00* Test Item Value Reference Range Interpretation Comme nts ACT-ISTAT (test code = ACTI) 522 SEC 74-137 H Performed by cer yusef pick pulling machine operator at [facility] POC ARTERIAL BLOOD [id number] 17:50:00* Test Item Value Reference Range Interpretation Comme nts POC ARTERIAL BLOOD GAS PH (t est code = POCPHA) 7.432 7.35-7.45 N POC ARTERIAL BLOOD GAS PCO2 (test code = ZAKXPC9M) 33.6 mmHg 35.0-45 L POC TCO2 ARTERIAL (test code = POCTCO2) 23.4 POC ARTERIAL BLOOD GAS PO2 ( test code = GTFGU1D) 404.5 mmHg 80-100.0 HH POC HCO3 ARTERIAL (test code = YJGUSN6V) 22.4 MMOL/L 22.0-26.0 N POC BASE EXCESS (test code = POCBEA) -1.6 MMOL/L -4.0-4.0 N POC O2 SATURATION (test code = POCO2S) 100.0 % 90-100 N BASIC METABOLIC [id number] 17:50:00* Test Item Value Reference Range Interpretation Comme nts SODIUM (test code = NA/ABG) 144 mmol/L 134-147 N POTASSIUM (test code = K/ABG) 5.0 mmol/L 3.4-5.0 N CHLORIDE (test code = CL/ABG) 109 mmol/L 100-108 H CREATININE ABG (test code = CREAABG) 4.0 mg/dL 0.8-1.3 H POC IONIZED CALCIUM (test co de = POCCA) 1.03 MMOL/L 1.12-1.32 L POC GLUCOSE (test code = POCGLU) 171 MG/DL 70-110 H HEMOGLOBIN [id number] 17:50:00* Test Item Value Reference Range Interpretation Comme nts HEMOGLOBIN ABG (test code = HGB/ABG) 7.7 G/DL 12.5-16.9 L [id number] 17:50:00* Test Item Value Reference Range Interpretation Comme nts HEMATOCRIT (test code = HCT/ABG) 23 % 37.5-50.7 L POC LACTIC [id number] 17:50:00* Test Item Value Reference Range Interpretation Comme nts POC LACTIC ACID (test code = POCLAC) 1.8 mmol/l 0.9-1.7 H [id number] 17:32:00* Test Item Value Reference Range Interpretation Comme nts ACT-ISTAT (test code = ACTI) 636 SEC 74-137 H Performed by cer tified pick pulling machine operator at [facility] POC ARTERIAL BLOOD [id number] 17:23:00* Test Item Value Reference Range Interpretation Comme nts POC ARTERIAL BLOOD GAS PH (t est code = POCPHA) 7.401 7.35-7.45 N POC ARTERIAL BLOOD GAS PCO2 (test code = YAIVNN9L) 33.4 mmHg 35.0-45 L POC TCO2 ARTERIAL (test code = POCTCO2) 21.7 POC ARTERIAL BLOOD GAS PO2 ( test code = DILUC2O) 327.7 mmHg 80-100.0 HH POC HCO3 ARTERIAL (test code = HENRXK2P) 20.7 MMOL/L 22.0-26.0 L POC BASE EXCESS (test code = POCBEA) -3.6 MMOL/L -4.0-4.0 N POC O2 SATURATION (test code = POCO2S) 99.9 % 90-100 N BASIC METABOLIC [id number] 17:23:00* Test Item Value Reference Range Interpretation Comme nts SODIUM (test code = NA/ABG) 142 mmol/L 134-147 N POTASSIUM (test code = K/ABG) 4.7 mmol/L 3.4-5.0 N CHLORIDE (test code = CL/ABG) 110 mmol/L 100-108 H CREATININE ABG (test code = CREAABG) 4.3 mg/dL 0.8-1.3 H POC IONIZED CALCIUM (test co de = POCCA) 1.04 MMOL/L 1.12-1.32 L POC GLUCOSE (test code = POCGLU) 171 MG/DL 70-110 H HEMOGLOBIN [id number] 17:23:00* Test Item Value Reference Range Interpretation Comme nts HEMOGLOBIN ABG (test code = HGB/ABG) 8.6 G/DL 12.5-16.9 L [id number] 17:23:00* Test Item Value Reference Range Interpretation Comme nts HEMATOCRIT (test code = HCT/ABG) 25 % 37.5-50.7 L POC LACTIC [id number] 17:23:00* Test Item Value Reference Range Interpretation Comme nts POC LACTIC ACID (test code = POCLAC) 1.2 mmol/l 0.9-1.7 N [id number] 16:57:00* Test Item Value Reference Range Interpretation Comme nts ACT-ISTAT (test code = ACTI) 648 SEC 74-137 H Performed by cer tified pick pulling machine operator at [facility] POC ARTERIAL BLOOD [id number] 16:46:00* Test Item Value Reference Range Interpretation Comme nts POC ARTERIAL BLOOD GAS PH (t est code = POCPHA) 7.355 7.35-7.45 N POC ARTERIAL BLOOD GAS PCO2 (test code = YDGUKE4D) 43.3 mmHg 35.0-45 N POC TCO2 ARTERIAL (test code = POCTCO2) 25.5 POC ARTERIAL BLOOD GAS PO2 ( test code = JOEAZ6F) 469.8 mmHg 80-100.0 HH POC HCO3 ARTERIAL (test code = DBLTDW1Q) 24.2 MMOL/L 22.0-26.0 N POC BASE EXCESS (test code = POCBEA) -1.3 MMOL/L -4.0-4.0 N POC O2 SATURATION (test code = POCO2S) 100.0 % 90-100 N BASIC METABOLIC [id number] 16:46:00* Test Item Value Reference Range Interpretation Comme nts SODIUM (test code = NA/ABG) 142 mmol/L 134-147 N POTASSIUM (test code = K/ABG) 4.6 mmol/L 3.4-5.0 N CHLORIDE (test code = CL/ABG) 108 mmol/L 100-108 N CREATININE ABG (test code = CREAABG) 4.0 mg/dL 0.8-1.3 H POC IONIZED CALCIUM (test co de = POCCA) 1.06 MMOL/L 1.12-1.32 L POC GLUCOSE (test code = POCGLU) 169 MG/DL 70-110 H HEMOGLOBIN [id number] 16:46:00* Test Item Value Reference Range Interpretation Comme nts HEMOGLOBIN ABG (test code = HGB/ABG) 8.4 G/DL 12.5-16.9 L [id number] 16:46:00* Test Item Value Reference Range Interpretation Comme nts HEMATOCRIT (test code = HCT/ABG) 25 % 37.5-50.7 L POC LACTIC [id number] 16:46:00* Test Item Value Reference Range Interpretation Comme nts POC LACTIC ACID (test code = POCLAC) 0.6 mmol/l 0.9-1.7 L [id number] 16:00:00* Test Item Value Reference Range Interpretation Comme nts ACT-ISTAT (test code = ACTI) 606 SEC 74-137 H Performed by cer tified pick pulling machine operator at [facility] [id number] 15:50:00* Test Item Value Reference Range Interpretation Comme nts HEMATOCRIT (test code = HCT/ABG) 32 % 37.5-50.7 L POC LACTIC [id number] 15:50:00* Test Item Value Reference Range Interpretation Comme nts POC LACTIC ACID (test code = POCLAC) 0.8 mmol/l 0.9-1.7 L POC ARTERIAL BLOOD [id number] 15:50:00* Test Item Value Reference Range Interpretation Comme nts POC ARTERIAL BLOOD GAS PH (t est code = POCPHA) 7.262 7.35-7.45 LL POC ARTERIAL BLOOD GAS PCO2 (test code = ZMDKND8D) 49.5 mmHg 35.0-45 H POC TCO2 ARTERIAL (test code = POCTCO2) 23.8 POC ARTERIAL BLOOD GAS PO2 ( test code = REHZC5M) 458.7 mmHg 80-100.0 HH POC HCO3 ARTERIAL (test code = XCNXFB3D) 22.3 MMOL/L 22.0-26.0 N POC BASE EXCESS (test code = POCBEA) -4.8 MMOL/L -4.0-4.0 L POC O2 SATURATION (test code = POCO2S) 100.0 % 90-100 N BASIC METABOLIC [id number] 15:50:00* Test Item Value Reference Range Interpretation Comme nts SODIUM (test code = NA/ABG) 144 mmol/L 134-147 N POTASSIUM (test code = K/ABG) 4.1 mmol/L 3.4-5.0 N CHLORIDE (test code = CL/ABG) 111 mmol/L 100-108 H CREATININE ABG (test code = CREAABG) 4.6 mg/dL 0.8-1.3 H POC IONIZED CALCIUM (test co de = POCCA) 1.15 MMOL/L 1.12-1.32 N POC GLUCOSE (test code = POCGLU) 141 MG/DL 70-110 H HEMOGLOBIN [id number] 15:50:00* Test Item Value Reference Range Interpretation Comme nts HEMOGLOBIN ABG (test code = HGB/ABG) 10.8 G/DL 12.5-16.9 L [id number] 15:07:00* Test Item Value Reference Range Interpretation Comme nts ACT-ISTAT (test code = ACTI) 137 SEC 74-137 N Performed by cer tified pick pulling machine operator at [facility] POC ARTERIAL BLOOD [id number] 14:52:00* Test Item Value Reference Range Interpretation Comme nts POC ARTERIAL BLOOD GAS PH (t est code = POCPHA) 7.330 7.35-7.45 L POC ARTERIAL BLOOD GAS PCO2 (test code = JRHBHY9B) 40.0 mmHg 35.0-45 N POC TCO2 ARTERIAL (test code = POCTCO2) 22.3 POC ARTERIAL BLOOD GAS PO2 ( test code = APYER7E) 487.7 mmHg 80-100.0 HH POC HCO3 ARTERIAL (test code = FSHWNU1O) 21.1 MMOL/L 22.0-26.0 L POC BASE EXCESS (test code = POCBEA) -4.5 MMOL/L -4.0-4.0 L POC O2 SATURATION (test code = POCO2S) 100.0 % 90-100 N BASIC METABOLIC [id number] 14:52:00* Test Item Value Reference Range Interpretation Comme nts SODIUM (test code = NA/ABG) 147 mmol/L 134-147 N POTASSIUM (test code = K/ABG) 4.2 mmol/L 3.4-5.0 N CHLORIDE (test code = CL/ABG) 112 mmol/L 100-108 H CREATININE ABG (test code = CREAABG) 4.0 mg/dL 0.8-1.3 H POC IONIZED CALCIUM (test co de = POCCA) 1.11 MMOL/L 1.12-1.32 L POC GLUCOSE (test code = POCGLU) 88 MG/DL 70-110 N HEMOGLOBIN [id number] 14:52:00* Test Item Value Reference Range Interpretation Comme nts HEMOGLOBIN ABG (test code = HGB/ABG) 11.3 G/DL 12.5-16.9 L [id number] 14:52:00* Test Item Value Reference Range Interpretation Comme nts HEMATOCRIT (test code = HCT/ABG) 33 % 37.5-50.7 L POC LACTIC [id number] 14:52:00* Test Item Value Reference Range Interpretation Comme nts POC LACTIC ACID (test code = POCLAC) < 0.3 mmol/l 0.9-1.7 L PROTHROMBIN [id number] 06:01:00* Test Item Value Reference Range Interpretation Comme nts PROTHROMBIN TIME PATIENT (test code = PTP) 12.9 SECONDS 9.3-12.9 N INTERNATIONAL NORMAL RATIO (test code = INR) 1.2 0.8-1.2 N TARGET INR BY INDICATION Indication INR1. Prophylaxis of venous thrombosis 2.0 - 3.0 (orthopedic surgery), Prophylaxis of venous thrombosis (other than high-risk surgery), Treatment of Deep Vein Thrombosis/Pulmonary Embolism, Prevention of systemic embolism - Tissue heart valves, Acute Myocardial Infarction (to prevent systemic embolism), Valvular heart disease, Atrial Fibrillation, Bileaflet mechanical valve in aortic position.2. Mechanical prosthetic valves (high risk), 2.5 - 3.5 Presence of Lupus Anticoagulant or Antiphospholipid Antibodies, Prevention of systemic embolism - Acute Myocardial Infarction (to prevent recurrent infarct). THROMBOPLASTIN TIME [id number] 06:01:00* Test Item Value Reference Range Interpretation Comme nts THROMBOPLASTIN TIME PARTIAL (test code = PTT) 31.8 Seconds 25.0-39.5 N Therapeutic Rang e: 50.4 - 88.3 Seconds Effective 09/21/2018 COMPREHENSIVE METABOLIC [id number] 06:00:00* Test Item Value Reference Range Interpretation Comme nts SODIUM (test code = NA) 145 mEq/L 134-147 N POTASSIUM (test code = K) 4.7 mEq/L 3.4-5.0 N CHLORIDE (test code = CL) 109 mEq/L 100-108 H CARBON DIOXIDE (test code = CO2) 26 mEq/l 21-33 N ANION GAP (test code = GAP) 15 0-20 N GLUCOSE (test code = GLU) 90 mg/dL 70-110 N BLOOD UREA NITROGEN (test code = BUN) 35 mg/dL 7-18 H GLOMERULAR FILTRATION RATE (test code = GFR) 14.5 70-80 L The Glomerular Filtration Rate is a calculated parameterbased on serum Creatinine, patient age and sex. GFR valuesless than 60 mL/min/1.73 square meters are indicative ofChronic Kidney Disease. Values less than 15 mL/min/1.73square meters indicate Kidney failure. The calculation forGFR is based on the CKD-EPI (2020) calculation. This formulais race indifferent and is the recommended formula for GFRby the National Kidney Foundation for Adults.The GFR will not calculate if the sex is unknown or if thepatient's age is <18 years. CREATININE (test code = CREAT) 4.0 mg/dL 0.6-1.3 H TOTAL PROTEIN (test code = PROT) 7.0 g/dL 6.4-8.2 N ALBUMIN (test code = ALB) 2.80 g/dL 3.4-5.0 L CALCIUM (test code = CA) 8.7 mg/dL 8.0-10.5 N BILIRUBIN TOTAL (test code = BILT) 0.20 mg/dL 0.0-1.0 SGOT/AST (test code = AST) 34 IUnit/L 15-37 N SGPT/ALT (test code = ALT) 34 IUnit/L 30-65 N ALKALINE PHOSPHATASE TOTAL (test code = ALKP) 93 IUnit/L 20-125 N [id number] 06:00:00* Test Item Value Reference Range Interpretation Comme nts PHOSPHOROUS (test code = PHOS) 3.8 MG/DL 2.5-4.9 N [id number] 06:00:00* Test Item Value Reference Range Interpretation Comme nts MAGNESIUM (test code = MAG) 1.92 mg/dL 1.80-2.40 N CBC W/AUTO [id number] 05:48:00* Test Item Value Reference Range Interpretation Comme nts WHITE BLOOD CELL (test code = WBC) 13.6 x10 3/uL 4.5-11.0 H RED BLOOD CELL (test code = RBC) 3.60 x10 6/uL 4.00-5.60 L HEMOGLOBIN (test code = HGB) 10.8 g/dL 12.5-16.9 L HEMATOCRIT (test code = HCT) 35.4 % 37.5-50.7 L MEAN CELL VOLUME (test code = MCV) 98.3 fL 81.0-99.0 N MEAN CELL HGB (test code = MCH) 30.0 pg 27.0-33.0 N MEAN CELL HGB CONCETRATION (test code = MCHC) 30.5 g/dL 33.0-37.0 L RED CELL DISTRIBUTION WIDTH CV (test code = RDW) 16.8 % 11.5-14.5 H RED CELL DISTRIBUTION WIDTH SD (test code = RDW-SD) 61.1 fL 37.0-54.0 H PLATELET COUNT (test code = PLT) 164 x10 3/uL 150-400 N MEAN PLATELET VOLUME (test c ode = MPV) 10.9 fL 7.0-9.0 H NEUTROPHIL % (test code = NT%) 68.9 % 56.0-77.0 N IMMATURE GRANULOCYTE % (test code = IG%) 1.4 % 0.0-2.0 N LYMPHOCYTE % (test code = LY%) 10.2 % 14.0-32.0 L MONOCYTE % (test code = MO%) 8.6 % 4.8-9.0 N EOSINOPHIL % (test code = EO%) 10.2 % 0.3-3.7 H BASOPHIL % (test code = BA%) 0.7 % 0.0-2.0 N NUCLEATED RBC % (test code = NRBC%) 0.0 % 0-0 N NEUTROPHIL # (test code = NT#) 9.37 x10 3/uL 2.0-7.6 H IMMATURE GRANULOCYTE # (test code = IG#) 0.19 x10 3/uL 0.00-0.03 H LYMPHOCYTE # (test code = LY#) 1.38 x10 3/uL 1.0-3.8 N MONOCYTE # (test code = MO#) 1.17 x10 3/uL 0.1-0.8 H EOSINOPHIL # (test code = EO#) 1.39 x10 3/uL 0.0-0.2 H BASOPHIL # (test code = BA#) 0.09 x10 3/uL 0.0-0.2 N NUCLEATED RBC # (test code = NRBC#) 0.00 x10 3/uL 0.0-0.1 N MANUAL DIFF REQUIRED (test c ode = MDIFF) NO - XR CHEST 1 [id number] 00:00:00 [facility] 1940 Sex: M FAX: Radha Ward MD [phone] [place]: St: [facility] FAX: [place] [phone] FAX: Ana Toribio [phone] Name: SHERRI ARCE [facility] : 1940 Age/S: 81/M [address] [place] [address] Unit #: [id number] Loc: CHERYL Mena [address] Phys: Rosalind 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 A right IJ [place] catheter tip projects overlying the midline cardiac [...] S: 07/08/2022 (1955) PAGE 1 Signed ReportGLUCOSE [id number] 18:27:00* Test Item Value Reference Range Interpretation Comme nts GLUCOSE BEDSIDE (test code = GLUBED) 112 MG/DL 70-110 H Performed by cer tified pick pulling machine operator at [facility] GLUCOSE [id number] 12:36:00* Test Item Value Reference Range Interpretation Comme nts GLUCOSE BEDSIDE (test code = GLUBED) 97 MG/DL 70-110 N Performed by Chatousied pick pulling machine operator at [facility] PROTHROMBIN [id number] 06:05:00* Test Item Value Reference Range Interpretation Comme nts PROTHROMBIN TIME PATIENT (test code = PTP) 13.4 SECONDS 9.3-12.9 H INTERNATIONAL NORMAL RATIO (test code = INR) 1.2 0.8-1.2 N TARGET INR BY INDICATION Indication INR1. Prophylaxis of venous thrombosis 2.0 - 3.0 (orthopedic surgery), Prophylaxis of venous thrombosis (other than high-risk surgery), Treatment of Deep Vein Thrombosis/Pulmonary Embolism, Prevention of systemic embolism - Tissue heart valves, Acute Myocardial Infarction (to prevent systemic embolism), Valvular heart disease, Atrial Fibrillation, [place] mechanical valve in aortic position.2. Mechanical prosthetic valves (high risk), 2.5 - 3.5 Presence of Lupus Anticoagulant or Antiphospholipid Antibodies, Prevention of systemic embolism - Acute Myocardial Infarction (to prevent recurrent infarct). THROMBOPLASTIN TIME [id number] 06:05:00* Test Item Value Reference Range Interpretation Comme nts THROMBOPLASTIN TIME PARTIAL (test code = PTT) 33.5 Seconds 25.0-39.5 N Therapeutic Rang e: 50.4 - 88.3 Seconds Effective 09/21/2018 B-TYPE NATRIURETIC [id number] 04:25:00* Test Item Value Reference Range Interpretation Comme nts B-TYPE NATRIURETIC PEPTIDE ( test code = BNP) 161.0 PG/ML 0-100 H COMPREHENSIVE METABOLIC [id number] 04:13:00* Test Item Value Reference Range Interpretation Comme nts SODIUM (test code = NA) 143 mEq/L 134-147 N POTASSIUM (test code = K) 4.8 mEq/L 3.4-5.0 N CHLORIDE (test code = CL) 111 mEq/L 100-108 H CARBON DIOXIDE (test code = CO2) 23 mEq/l 21-33 N ANION GAP (test code = GAP) 14 0-20 N GLUCOSE (test code = GLU) 93 mg/dL 70-110 N BLOOD UREA NITROGEN (test code = BUN) 37 mg/dL 7-18 H GLOMERULAR FILTRATION RATE (test code = GFR) 12.6 70-80 L The Glomerular Filtration Rate is a calculated parameterbased on serum Creatinine, patient age and sex. GFR valuesless than 60 mL/min/1.73 square meters are indicative ofChronic Kidney Disease. Values less than 15 mL/min/1.73square meters indicate Kidney failure. The calculation forGFR is based on the CKD-EPI (2020) calculation. This formulais race indifferent and is the recommended formula for GFRby the National Kidney Foundation for Adults.The GFR will not calculate if the sex is unknown or if thepatient's age is <18 years. CREATININE (test code = CREAT) 4.5 mg/dL 0.6-1.3 H TOTAL PROTEIN (test code = PROT) 6.9 g/dL 6.4-8.2 N ALBUMIN (test code = ALB) 2.90 g/dL 3.4-5.0 L CALCIUM (test code = CA) 8.6 mg/dL 8.0-10.5 N BILIRUBIN TOTAL (test code = BILT) 0.30 mg/dL 0.0-1.0 N SGOT/AST (test code = AST) 37 IUnit/L 15-37 N SGPT/ALT (test code = ALT) 33 IUnit/L 30-65 N ALKALINE PHOSPHATASE TOTAL (test code = ALKP) 90 IUnit/L 20-125 N [id number] 04:13:00* Test Item Value Reference Range Interpretation Comme nts PHOSPHOROUS (test code = PHOS) 4.1 MG/DL 2.5-4.9 N [id number] 04:13:00* Test Item Value Reference Range Interpretation Comme nts MAGNESIUM (test code = MAG) 1.75 mg/dL 1.80-2.40 L CBC W/AUTO [id number] 03:57:00* Test Item Value Reference Range Interpretation Comme nts WHITE BLOOD CELL (test code = WBC) 11.6 x10 3/uL 4.5-11.0 H RED BLOOD CELL (test code = RBC) 3.58 x10 6/uL 4.00-5.60 L HEMOGLOBIN (test code = HGB) 10.8 g/dL 12.5-16.9 L HEMATOCRIT (test code = HCT) 34.3 % 37.5-50.7 L MEAN CELL VOLUME (test code = MCV) 95.8 fL 81.0-99.0 MEAN CELL HGB (test code = MCH) 30.2 pg 27.0-33.0 N MEAN CELL HGB CONCETRATION (test code = MCHC) 31.5 g/dL 33.0-37.0 L RED CELL DISTRIBUTION WIDTH CV (test code = RDW) 17.2 % 11.5-14.5 H RED CELL DISTRIBUTION WIDTH SD (test code = RDW-SD) 61.1 fL 37.0-54.0 H PLATELET COUNT (test code = PLT) 162 x10 3/uL 150-400 N MEAN PLATELET VOLUME (test c ode = MPV) 10.9 fL 7.0-9.0 H NEUTROPHIL % (test code = NT%) 65.7 % 56.0-77.0 N IMMATURE GRANULOCYTE % (test code = IG%) 1.7 % 0.0-2.0 N LYMPHOCYTE % (test code = LY%) 10.6 % 14.0-32.0 L MONOCYTE % (test code = MO%) 9.5 % 4.8-9.0 H EOSINOPHIL % (test code = EO%) 11.7 % 0.3-3.7 H BASOPHIL % (test code = BA%) 0.8 % 0.0-2.0 N NUCLEATED RBC % (test code = NRBC%) 0.0 % 0-0 N NEUTROPHIL # (test code = NT#) 7.61 x10 3/uL 2.0-7.6 H IMMATURE GRANULOCYTE # (test code = IG#) 0.20 x10 3/uL 0.00-0.03 H LYMPHOCYTE # (test code = LY#) 1.23 x10 3/uL 1.0-3.8 N MONOCYTE # (test code = MO#) 1.10 x10 3/uL 0.1-0.8 H EOSINOPHIL # (test code = EO#) 1.35 x10 3/uL 0.0-0.2 H BASOPHIL # (test code = BA#) 0.09 x10 3/uL 0.0-0.2 N NUCLEATED RBC # (test code = NRBC#) 0.00 x10 3/uL 0.0-0.1 N MANUAL DIFF REQUIRED (test c ode = MDIFF) NO COVID 19 Asymptomatic IH [id number] 15:22:00* Test Item Value Reference Range Interpretation Comme nts COVID 19 Asymptomatic IH AG (test code = COVNONPUIAG) Negative Negative A negative resul t is presumptive and should be confirmedwith an FDA authorized molecular assay, if necessary forpatient management.A positive result does not rule out co-infections withother pathogens.This test detects both viable (live) and non-viable,SARS-CoV, and SARS-CoV-2. Test performance depends on theamount of virus (antigen) in the sample.This test has not been FDA cleared or approved; the test hasbeen authorized by FDA under an Emergency Use Authorization(EUA) for use by laboratories certified under the CLIA thatmeet the requirements to perform moderate, high or waivedcomplexity tests. BASIC METABOLIC [id number] 05:37:00* Test Item Value Reference Range Interpretation Comme nts SODIUM (test code = NA) 143 mEq/L 134-147 N POTASSIUM (test code = K) 4.4 mEq/L 3.4-5.0 N CHLORIDE (test code = CL) 112 mEq/L 100-108 H CARBON DIOXIDE (test code = CO2) 23 mEq/l 21-33 N ANION GAP (test code = GAP) 12 0-20 N GLUCOSE (test code = GLU) 93 mg/dL 70-110 N BLOOD UREA NITROGEN (test code = BUN) 36 mg/dL 7-18 H GLOMERULAR FILTRATION RATE (test code = GFR) 12.9 70-80 L The Glomerular Filtration Rate is a calculated parameterbased on serum Creatinine, patient age and sex. GFR valuesless than 60 mL/min/1.73 square meters are indicative ofChronic Kidney Disease. Values less than 15 mL/min/1.73square meters indicate Kidney failure. The calculation forGFR is based on the CKD-EPI (2020) calculation. This formulais race indifferent and is the recommended formula for GFRby the National Kidney Foundation for Adults.The GFR will not calculate if the sex is unknown or if thepatient's age is <18 years. CREATININE (test code = CREAT) 4.4 mg/dL 0.6-1.3 H CALCIUM (test code = CA) 8.4 mg/dL 8.0-10.5 N [id number] 05:37:00* Test Item Value Reference Range Interpretation Comme nts PHOSPHOROUS (test code = PHOS) 3.9 MG/DL 2.5-4.9 N [id number] 05:37:00* Test Item Value Reference Range Interpretation Comme nts MAGNESIUM (test code = MAG) 1.75 mg/dL 1.80-2.40 L CBC W/AUTO [id number] 05:25:00* Test Item Value Reference Range Interpretation Comme nts WHITE BLOOD CELL (test code = WBC) 10.8 x10 3/uL 4.5-11.0 N RED BLOOD CELL (test code = RBC) 3.01 x10 6/uL 4.00-5.60 L HEMOGLOBIN (test code = HGB) 9.3 g/dL 12.5-16.9 L HEMATOCRIT (test code = HCT) 30.2 % 37.5-50.7 L MEAN CELL VOLUME (test code = MCV) 100.3 fL 81.0-99.0 H MEAN CELL HGB (test code = MCH) 30.9 pg 27.0-33.0 N MEAN CELL HGB CONCETRATION (test code = MCHC) 30.8 g/dL 33.0-37.0 L RED CELL DISTRIBUTION WIDTH CV (test code = RDW) 14.6 % 11.5-14.5 H RED CELL DISTRIBUTION WIDTH SD (test code = RDW-SD) 53.8 fL 37.0-54.0 N PLATELET COUNT (test code = PLT) 170 x10 3/uL 150-400 N MEAN PLATELET VOLUME (test c ode = MPV) 10.4 fL 7.0-9.0 H NEUTROPHIL % (test code = NT%) 62.9 % 56.0-77.0 N IMMATURE GRANULOCYTE % (test code = IG%) 1.4 % 0.0-2.0 N LYMPHOCYTE % (test code = LY%) 13.2 % 14.0-32.0 L MONOCYTE % (test code = MO%) 9.0 % 4.8-9.0 N EOSINOPHIL % (test code = EO%) 12.7 % 0.3-3.7 H BASOPHIL % (test code = BA%) 0.8 % 0.0-2.0 N NUCLEATED RBC % (test code = NRBC%) 0.0 % 0-0 N NEUTROPHIL # (test code = NT#) 6.81 x10 3/uL 2.0-7.6 N IMMATURE GRANULOCYTE # (test code = IG#) 0.15 x10 3/uL 0.00-0.03 H LYMPHOCYTE # (test code = LY#) 1.43 x10 3/uL 1.0-3.8 N MONOCYTE # (test code = MO#) 0.98 x10 3/uL 0.1-0.8 H EOSINOPHIL # (test code = EO#) 1.38 x10 3/uL 0.0-0.2 H BASOPHIL # (test code = BA#) 0.09 x10 3/uL 0.0-0.2 N NUCLEATED RBC # (test code = NRBC#) 0.00 x10 3/uL 0.0-0.1 N MANUAL DIFF REQUIRED (test c ode = MDIFF) NO [id number] 10:01:00* Test Item Value Reference Range Interpretation Comme nts MAGNESIUM (test code = MAG) 2.07 mg/dL 1.80-2.40 ACUTE HEPATITIS [id number] 08:13:00* Test Item Value Reference Range Interpretation Comme nts AB HEPATITIS A IGM (test code = HAVMAB) NON REACTIVE INDEX NON REACT. AG HEPATITIS B SURFACE (test code = HBSAG) NON REACTIVE INDEX NonReactive AB HEPATITIS B CORE IGM (test code = HBCMAB) NON REACTIVE INDEX NON REACT. AB HEPATITIS C (test code = HCVAB) NON REACTIVE INDEX NON REACT. AB HEPATITIS B [id number] 08:13:00* Test Item Value Reference Range Interpretation Comme nts AB HEPATITIS B SURFACE (test code = HBSAB) 3.7 mIU/mL See_Comment L Status of Immuni ty Anti-HBs Level Inconsis tent with Immunity 0.0 - 9.9Consistent with Immunity >9.9Performed At: [facility] [address] [place], [place] [id number] Kyle L MD Ph:[phone] [Automated message] The system which generated this result transmitted reference range: Immunity>9.9. The reference range was not used to interpret this result as normal/abnormal. BASIC METABOLIC [id number] 05:34:00* Test Item Value Reference Range Interpretation Comme nts SODIUM (test code = NA) 142 mEq/L 134-147 N POTASSIUM (test code = K) 4.2 mEq/L 3.4-5.0 N CHLORIDE (test code = CL) 110 mEq/L 100-108 H CARBON DIOXIDE (test code = CO2) 25 mEq/l 21-33 N ANION GAP (test code = GAP) 12 0-20 N GLUCOSE (test code = GLU) 89 mg/dL 70-110 N BLOOD UREA NITROGEN (test code = BUN) 53 mg/dL 7-18 H GLOMERULAR FILTRATION RATE (test code = GFR) 10.1 70-80 L The Glomerular Filtration Rate is a calculated parameterbased on serum Creatinine, patient age and sex. GFR valuesless than 60 mL/min/1.73 square meters are indicative ofChronic Kidney Disease. Values less than 15 mL/min/1.73square meters indicate Kidney failure. The calculation forGFR is based on the CKD-EPI (202) calculation. This formulais race indifferent and is the recommended formula for GFRby the National Kidney Foundation for Adults.The GFR will not calculate if the sex is unknown or if thepatient's age is <18 years. CREATININE (test code = CREAT) 5.4 mg/dL 0.6-1.3 H CALCIUM (test code = CA) 8.1 mg/dL 8.0-10.5 N CBC W/AUTO [id number] 05:19:00* Test Item Value Reference Range Interpretation Comme nts WHITE BLOOD CELL (test code = WBC) 11.2 x10 3/uL 4.5-11.0 H RED BLOOD CELL (test code = RBC) 3.10 x10 6/uL 4.00-5.60 L HEMOGLOBIN (test code = HGB) 9.6 g/dL 12.5-16.9 L HEMATOCRIT (test code = HCT) 30.3 % 37.5-50.7 L MEAN CELL VOLUME (test code = MCV) 97.7 fL 81.0-99.0 N MEAN CELL HGB (test code = MCH) 31.0 pg 27.0-33.0 N MEAN CELL HGB CONCETRATION (test code = MCHC) 31.7 g/dL 33.0-37.0 L RED CELL DISTRIBUTION WIDTH CV (test code = RDW) 14.8 % 11.5-14.5 H RED CELL DISTRIBUTION WIDTH SD (test code = RDW-SD) 53.1 fL 37.0-54.0 N PLATELET COUNT (test code = PLT) 193 x10 3/uL 150-400 N MEAN PLATELET VOLUME (test c ode = MPV) 10.8 fL 7.0-9.0 H NEUTROPHIL % (test code = NT%) 61.6 % 56.0-77.0 N IMMATURE GRANULOCYTE % (test code = IG%) 1.8 % 0.0-2.0 N LYMPHOCYTE % (test code = LY%) 12.0 % 14.0-32.0 L MONOCYTE % (test code = MO%) 10.9 % 4.8-9.0 H EOSINOPHIL % (test code = EO%) 13.1 % 0.3-3.7 H BASOPHIL % (test code = BA%) 0.6 % 0.0-2.0 N NUCLEATED RBC % (test code = NRBC%) 0.0 % 0-0 N NEUTROPHIL # (test code = NT#) 6.89 x10 3/uL 2.0-7.6 N IMMATURE GRANULOCYTE # (test code = IG#) 0.20 x10 3/uL 0.00-0.03 H LYMPHOCYTE # (test code = LY#) 1.34 x10 3/uL 1.0-3.8 N MONOCYTE # (test code = MO#) 1.22 x10 3/uL 0.1-0.8 H EOSINOPHIL # (test code = EO#) 1.46 x10 3/uL 0.0-0.2 H BASOPHIL # (test code = BA#) 0.07 x10 3/uL 0.0-0.2 N NUCLEATED RBC # (test code = NRBC#) 0.00 x10 3/uL 0.0-0.1 N MANUAL DIFF REQUIRED (test c ode = MDIFF) NO BASIC METABOLIC [id number] 05:16:00* Test Item Value Reference Range Interpretation Comme nts SODIUM (test code = NA) 143 mEq/L 134-147 N POTASSIUM (test code = K) 3.6 mEq/L 3.4-5.0 N CHLORIDE (test code = CL) 112 mEq/L 100-108 H CARBON DIOXIDE (test code = CO2) 23 mEq/l 21-33 N ANION GAP (test code = GAP) 12 0-20 N GLUCOSE (test code = GLU) 94 mg/dL 70-110 N BLOOD UREA NITROGEN (test code = BUN) 45 mg/dL 7-18 H GLOMERULAR FILTRATION RATE (test code = GFR) 9.9 70-80 L The Glomerular Filtration Rate is a calculated parameterbased on serum Creatinine, patient age and sex. GFR valuesless than 60 mL/min/1.73 square meters are indicative ofChronic Kidney Disease. Values less than 15 mL/min/1.73square meters indicate Kidney failure. The calculation forGFR is based on the CKD-EPI (2020) calculation. This formulais race indifferent and is the recommended formula for GFRby the National Kidney Foundation for Adults.The GFR will not calculate if the sex is unknown or if thepatient's age is <18 years. CREATININE (test code = CREAT) 5.5 mg/dL 0.6-1.3 H CALCIUM (test code = CA) 7.8 mg/dL 8.0-10.5 L [id number] 05:16:00* Test Item Value Reference Range Interpretation Comme nts PHOSPHOROUS (test code = PHOS) 4.0 MG/DL 2.5-4.9 N [id number] 05:16:00* Test Item Value Reference Range Interpretation Comme nts MAGNESIUM (test code = MAG) 1.40 mg/dL 1.80-2.40 L CBC W/AUTO [id number] 05:09:00* Test Item Value Reference Range Interpretation Comme nts WHITE BLOOD CELL (test code = WBC) 9.7 x10 3/uL 4.5-11.0 N RED BLOOD CELL (test code = RBC) 3.11 x10 6/uL 4.00-5.60 L HEMOGLOBIN (test code = HGB) 9.5 g/dL 12.5-16.9 L HEMATOCRIT (test code = HCT) 30.1 % 37.5-50.7 L MEAN CELL VOLUME (test code = MCV) 96.8 fL 81.0-99.0 N MEAN CELL HGB (test code = MCH) 30.5 pg 27.0-33.0 N MEAN CELL HGB CONCETRATION (test code = MCHC) 31.6 g/dL 33.0-37.0 L RED CELL DISTRIBUTION WIDTH CV (test code = RDW) 15.3 % 11.5-14.5 H RED CELL DISTRIBUTION WIDTH SD (test code = RDW-SD) 54.0 fL 37.0-54.0 N PLATELET COUNT (test code = PLT) 182 x10 3/uL 150-400 N MEAN PLATELET VOLUME (test c ode = MPV) 10.5 fL 7.0-9.0 H NEUTROPHIL % (test code = NT%) 61.8 % 56.0-77.0 N IMMATURE GRANULOCYTE % (test code = IG%) 1.8 % 0.0-2.0 N LYMPHOCYTE % (test code = LY%) 12.1 % 14.0-32.0 L MONOCYTE % (test code = MO%) 10.8 % 4.8-9.0 H EOSINOPHIL % (test code = EO%) 12.8 % 0.3-3.7 H BASOPHIL % (test code = BA%) 0.7 % 0.0-2.0 N NUCLEATED RBC % (test code = NRBC%) 0.0 % 0-0 N NEUTROPHIL # (test code = NT#) 5.98 x10 3/uL 2.0-7.6 N IMMATURE GRANULOCYTE # (test code = IG#) 0.17 x10 3/uL 0.00-0.03 H LYMPHOCYTE # (test code = LY#) 1.17 x10 3/uL 1.0-3.8 N MONOCYTE # (test code = MO#) 1.04 x10 3/uL 0.1-0.8 H EOSINOPHIL # (test code = EO#) 1.24 x10 3/uL 0.0-0.2 H BASOPHIL # (test code = BA#) 0.07 x10 3/uL 0.0-0.2 N NUCLEATED RBC # (test code = NRBC#) 0.00 x10 3/uL 0.0-0.1 N MANUAL DIFF REQUIRED (test c ode = MDIFF) NO UR SODIUM [id number] 11:10:00* Test Item Value Reference Range Interpretation Comme nts UR SODIUM RANDOM (test code = SIMONE) 67 MEQ/L The Reference Range and Method Performance specificationshave not been established for this fluid. The test resultshould be correlated into the clinical context forinterpretation. UR PROTEIN [id number] 11:10:00* Test Item Value Reference Range Interpretation Comme nts UR PROTEIN RANDOM (test code = PROTU) 129 mg/dL UR CREATININE [id number] 11:10:00* Test Item Value Reference Range Interpretation Comme nts UR CREATININE RANDOM (test code = CREATU) 36.2 mg/dL The Reference Ra nge and Method Performance specificationshave not been established for this fluid. The test resultshould be correlated into the clinical context forinterpretation. UA RFLX MICR CULT IF [id number] 11:05:00* Test Item Value Reference Range Interpretation Comme nts UA COLOR (test code = COLU) YELLOW YEL/STRAW UA APPEARANCE (test code = APPU) CLEAR CLEAR UA GLUCOSE DIPSTICK (test co de = DGLUU) 1+ NEGATIVE A UA BILIRUBIN DIPSTICK (test code = BILU) NEGATIVE NEGATIVE UA KETONE DIPSTICK (test cod e = KETU) NEGATIVE NEGATIVE UA SPECIFIC GRAVITY (test co de = SGU) 1.009 1.005-1.030 N UA BLOOD DIPSTICK (test code = SUMI) 2+ NEGATIVE A UA PH DIPSTICK (test code = DONTA) 7.0 5.0-7.0 N UA PROTEIN DIPSTICK (test co de = PROU) 2+ NEGATIVE A UA UROBILINIOGEN DIPSTICK (test code = URO) 0.2 mg/dL 0.2-1.0 UA NITRITE DIPSTICK (test co de = ISAURA) NEGATIVE NEGATIVE UA LEUKOCYTE ESTERASE DIPSTI CK (test code = LEUU) 3+ NEGATIVE A UA WBC (test code = WBCU) 21-50 WBC/HPF 0-3 A UA RBC (test code = RBCU) 21-50 RBC/HPF 0-3 UA WBC NO REFLEX (test code = WBCUCL) 21-50 WBC/HPF 0-3 A UA BACTERIA (test code = BACU) TRACE /HPF NONE SEEN UA SQUAMOUS CELLS (test code = SQU) NONE SEEN /HPF NONE SEEN UA MUCUS (test code = MUCU) TRACE /LPF NONE SEEN Indication for culture: Flank PainSpecimen Description: CLEAN [id number]% 2022-07-03 10:50:00* Test Item Value Reference Range Interpretation Comme nts HGBA1C% (test code = HGBA1C%) 4.8 %A1C 4.8-6.0 N LIPID PROFILE (CORONARY RISK)2022-07-03 08:08:00* Test Item Value Reference Range Interpretation Comme nts TRIGLYCERIDES (test code = TRIG) 119 mg/dL 40-150 N CHOLESTEROL (test code = CHOL) 119 mg/dL <200 CHOLESTEROL/HDL RATIO (test code = CHOLHDL) 5.00 RATIO 3.43-4.97 H RISK ASSOCIATED WITH CHOL/HDL RATIOS: RISK MALE FEMALE1/2 AVERAGE 3.43 3.27AVERAGE 4.97 4.442X AVERAGE 9.55 7.053X AVERAGE 23.39 11.04 NOTE THAT THE REFERENCE VALUE IS RELATEDTO RISK LEVELS RECOMMENDED BY THE NATL.HEART, LUNG, AND BLOOD INST. HDL CHOLESTEROL (test code = HDL) < 20.0 mg/dL 32-72 L LIPOPROTEIN LDL (test code = LDL) 90.1 mg/dL 0-100 N <100 [id number] 0-129 NEAR OPTIMAL/ABOVE [id number] HIGH>LJ=253 VERY HIGH*Guidelines provided by the National Cholesterol EducationProgram Adult Treatment Panel III THYROID STIMULATING [id number] 08:08:00* Test Item Value Reference Range Interpretation Comme nts THYROID STIMULATING HORMONE (test code = TSH) 3.33 0.42-5.47 N Result s in abby-International Units/mL BASIC METABOLIC [id number] 08:08:00* Test Item Value Reference Range Interpretation Comme nts SODIUM (test code = NA) 144 mEq/L 134-147 N POTASSIUM (test code = K) 3.3 mEq/L 3.4-5.0 L CHLORIDE (test code = CL) 109 mEq/L 100-108 H CARBON DIOXIDE (test code = CO2) 22 mEq/l 21-33 N ANION GAP (test code = GAP) 16 0-20 N GLUCOSE (test code = GLU) 103 mg/dL 70-110 N BLOOD UREA NITROGEN (test code = BUN) 68 mg/dL 7-18 H GLOMERULAR FILTRATION RATE (test code = GFR) 7.1 70-80 L The Glomerular Filtration Rate is a calculated parameterbased on serum Creatinine, patient age and sex. GFR valuesless than 60 mL/min/1.73 square meters are indicative ofChronic Kidney Disease. Values less than 15 mL/min/1.73square meters indicate Kidney failure. The calculation forGFR is based on the CKD-EPI (2020) calculation. This formulais race indifferent and is the recommended formula for GFRby the National Kidney Foundation for Adults.The GFR will not calculate if the sex is unknown or if thepatient's age is <18 years. CREATININE (test code = CREAT) 7.3 mg/dL 0.6-1.3 H CALCIUM (test code = CA) 8.0 mg/dL 8.0-10.5 N HGBA1C%2022-07-03 08:04:00* Test Item Value Reference Range Interpretation Comme nts HGBA1C% (test code = HGBA1C%) 5.2 %A1C 4.8-6.0 N CBC W/AUTO [id number] 07:17:00* Test Item Value Reference Range Interpretation Comme nts WHITE BLOOD CELL (test code = WBC) 10.3 x10 3/uL 4.5-11.0 N RED BLOOD CELL (test code = RBC) 3.09 x10 6/uL 4.00-5.60 L HEMOGLOBIN (test code = HGB) 9.5 g/dL 12.5-16.9 L HEMATOCRIT (test code = HCT) 29.4 % 37.5-50.7 L MEAN CELL VOLUME (test code = MCV) 95.1 fL 81.0-99.0 N MEAN CELL HGB (test code = MCH) 30.7 pg 27.0-33.0 N MEAN CELL HGB CONCETRATION (test code = MCHC) 32.3 g/dL 33.0-37.0 L RED CELL DISTRIBUTION WIDTH CV (test code = RDW) 15.3 % 11.5-14.5 H RED CELL DISTRIBUTION WIDTH SD (test code = RDW-SD) 53.3 fL 37.0-54.0 N PLATELET COUNT (test code = PLT) 195 x10 3/uL 150-400 N MEAN PLATELET VOLUME (test c ode = MPV) 10.7 fL 7.0-9.0 H NEUTROPHIL % (test code = NT%) 67.3 % 56.0-77.0 N IMMATURE GRANULOCYTE % (test code = IG%) 1.0 % 0.0-2.0 N LYMPHOCYTE % (test code = LY%) 9.4 % 14.0-32.0 L MONOCYTE % (test code = MO%) 10.0 % 4.8-9.0 H EOSINOPHIL % (test code = EO%) 11.7 % 0.3-3.7 H BASOPHIL % (test code = BA%) 0.6 % 0.0-2.0 N NUCLEATED RBC % (test code = NRBC%) 0.0 % 0-0 N NEUTROPHIL # (test code = NT#) 6.93 x10 3/uL 2.0-7.6 N IMMATURE GRANULOCYTE # (test code = IG#) 0.10 x10 3/uL 0.00-0.03 H LYMPHOCYTE # (test code = LY#) 0.97 x10 3/uL 1.0-3.8 L MONOCYTE # (test code = MO#) 1.03 x10 3/uL 0.1-0.8 H EOSINOPHIL # (test code = EO#) 1.21 x10 3/uL 0.0-0.2 H BASOPHIL # (test code = BA#) 0.06 x10 3/uL 0.0-0.2 N NUCLEATED RBC # (test code = NRBC#) 0.00 x10 3/uL 0.0-0.1 N MANUAL DIFF REQUIRED (test c ode = MDIFF) NO - US RETROPERITONEAL [id number] 00:00:00 [facility] 1940 Sex: M Name:SHERRI ARCE [facility] : 1940 Age/S: 81 / M [address] [place] [address] Unit #: [id number] Loc: [place] [address] Phys: Evelina Plaza MD Acct: [id number] Dis Date: Status: ADM IN PHONE #: [phone] Exam Date: 07/03/2022 120 FAX #: [phone] Reason: claudette EXAMS: CPT CODE: [id number] US RETROPERITONEAL COM [id number] PROCEDURE INFORMATION: Exam: US Retroperitoneal; Complete; Kidneys [...] hydronephrosis with cortical thinning. Left kidney: Measures 14.6cm.There is severe left hydronephrosis with cortical thinning. Intraperitoneal space: No ascites. Urinary bladder: There is diffuse severe thickening of the urinary bladder wall with Waters catheter in place. IMPRESSION: 1. Bilateral severe hydronephrosis. 2. Severe thickening of the urinary bladderwall with a Waters catheter in place. 3. 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 4. Cholelithiasis at 1551 Reported and signed by: Cherelle Mata M.D. CC: Evelina Plaza MD; Los Crawford DO Technologist: Goran Art Trnndb Date/Time: 07/03/2022 (1551) [email or web address] Orig Print D/T: S: 07/03/2022 (8022) Probe: PAGE 1 Signed Report- DUP EXTRACRANIAL [id number] 00:00:00 [facility] : 1940 Sex: M Name:SHERRI ARCE [facility] [place] : 1940 Age/S: 81 / M [address] [place] [address] Blvd Unit #: [id number]: [place]ERYL [place] [id number] Phys: Gianna Hoover ELHAM Acct: [id number] Dis Date: Status: ADM IN PHONE #: [phone] Exam Date: 07/03/2022 1207 FAX #: [phone] Reason: PRE CABG WORKUP EXAMS: CPT CODE: [id number] DUP EXTRACRANIAL WOJCIECH [id number] PROCEDURE INFORMATION: Exam: US Duplex Bilateral Extracranial [...] is based on criteria defined by the Societyof Radiologists in Ultrasound (SRU). Normal is no stenosis. Mild is less than 50% stenosis. Moderate is 50-69% stenosis. Severe is greater than 69% stenosis to near occlusion. Near occlusion is a markedly narrowed lumen. Total occlusion is no detectable patent lumen. at 1255 Reported and signed by: Brett Berry M.D. PAGE 1 Sig jesenia Report (CONTINUED) Name: [facility] : 1940 Age/S: 81 / M [address] [place] [address] Unit #: [id number] Loc: CHERYL [place] [address] Phys: Gianna Hoover Acct: [id number] Dis Date: Status: ADM IN PHONE #: [phone] Exam Date: 07/03/2022 1208 FAX #: [phone] Reason: PRE CABG WORKUP EXAMS: CPT CODE: [id number] DUP EXTRACRANIAL WOJCIECH 23621 (Continued) CC: Los Maloney DO; Gianna LIZARRAGA Technologist: Goran Art Trnndb Date/Time: 07/03/2022 (1255) [email or web address] Orig Print D/T: S: 07/03/2022 (1256) Probe: PAGE 2 Signed Report- CT CHEST W/O [id number] 00:00:00 [facility] PEDRO DAVIDName: SHERRI ARCE : 1940 Sex: M [facility] 1940 Age/S: 81 / M [address] [place] [address] Unit #: [id number]: CHERYL Fletcher [id number] Phys: Gianna Hoover Acct: [id number] Dis Date: Status: ADM IN PHONE #: [phone] Exam Date: 07/03/2022 1227 FAX #: [phone] Reason: PRE CABG WORKUP EXAMS: CPT CODE: [id number] CT CHEST W/O CONTRAST 85060 PROCEDURE INFORMATION: Exam: CT Chest Without Contrast; Di agnostic Exam date and time: 07/03/2022 11:54 AM Age: 81 years old Clinical indication: Other: Pre cabg workup TECHNIQUE: Imaging protocol: Diagnostic computed tomography of the chest without contrast. Radiation optimization: All CT scans at this facility use at least one of these dose optimization t echniques: automated exposure control; mA and/or kV adjustment [...] spine are seen. Soft tissues: Unremarkable. IMPRESSION: Smallbilateral pleural effusions with bibasilar atelectasis. at 1313 Reported and signed by: Ranjan Boo M.D. CC: Los Crawford DO;Gianna LIZARRAGA Technologist:Facundo Ervin, RT(R)(CT) CTDI: DLP: Trnscb Date/Time: 07/03/2022 (1313) tNINAL Orig Print D/T: S: 07/03/2022 (1313) PAGE 1 Signed Report- DUP VEIN [id number] 00:00:00 [facility] : 1940 Sex: M Name:SHERRI ARCE [facility] [place] : 1940 Age/S: 81 / M [address] [place] [address] Blvd Unit #: [id number] Loc: [place] [address] Phys: Gianna Hoover Acct: [id number] Dis Date: Status: ADM IN PHONE #: [phone] Exam Date: 07/03/2022 1203 FAX #: [phone] Reason: VEIN MAPPING AND R/O DVT EXAMS: CPT CODE: [id number] DUP VEIN WOJCIECH 23652 PROCEDURE INFORMATION: Exam: US Duplex Lower Extremity Veins; Vein mapping Exam date and time: 07/03/2022 11:32 AM Age: 81 years old Clinical indication: Screening exam; Pre op; Additional info: Vein mapping and R/O dvt TECHNIQUE: Imaging protocol: Real-timeduplex ultrasound of the extremities with 2-D crocker scale, color Doppler flow and spectral waveform analysis including responses to compression and other maneuvers (when performed) with image documentation. Complete exam focused on the bilateral lower extremity veins for vein mapping. COMPARISON: Norelevant prior studies available. FINDINGS: Right superficial veins: [...] 0.19 mm in the distal calf. Soft tissues: Unremarkable. IMPRESSION: 1. The right greater saphenous [...] 1326 Reported and signed by: Arely Brown M.D.CC: Los Crawford DO; Gianan LIZARRAGA Technologist: Goran Art [facility] Date/Time: 07/03/2022 (1325) [id number] Orig Print D/T: S: 07/03/2022 (1325) Probe: PAGE 1 Signed Report- XR CHEST 1 [id number] 00:00:00 [facility] : 1940 Sex: M FAX: [place] [phone] [place]: St: [facility] FAX: Sarbjit Sherman [phone] -------- Name: SHERRI ARCE [facility] : 1940 Age/S: 81/M [address] [place] [address] Blvd Unit #: [id number] Loc: G.33[address] [place] [address] Phys: Sarbjit Mcarthur MD Acct: [id number] Dis Date: Status: ADM IN PHONE #: [phone] Date: 07/02/20222144 FAX #: [phone] Reason: pre-op,cabg EXAMS: CPT CODE: [id number] XR CHEST 1 V 77866 PROCEDURE INFORMATION: Exam: XR Chest Exam date [...] Signed Report Notes Date/Time Note Provider Source 2022-12-25 08:20:41 [id number]:20:41Formatting of this no te might be different from the original.Images from the original note were not included.Results and recommendations shared, verbalized Jacque Erickson MD P Cardiology Dhyex36-hct cardiac event monitor showed no arrhythmias. Stop amiodarone [id number] encounter [id number]:22:34Telephone encounter [id number]| [id number] for patient [id number] A Roller RNUT48 [address] StreetUp[id number] [id number]:22:341.2.840.114 350.1.72.3.15|1.2.840.815330.1.13.104.2.7.2. [id number] Alvina Tran RN [facility] 2022-07-28 19:10:00 [id number]:10:00 [facility] ([facility])Nephrology Progress NoteREPORT#:[id number] REPORT STATUS: SignedDATE:07/28/22 TIME: 1909 PATIENT: SHERRI ARCE UNIT #: [id number]#: [id number] [address] [birth year] AGE: 81 SEX: M ATTEND: Srinath Kaur [facility] AUTHOR: Evelina Plaza MD * ALL edits or amendments must be made on the electronic/computer document * SubjectiveChief complaint:Seen after dialysis. Objective GeneralVS/I O:Vital Signs: Date Time Temp Pulse Resp B/P [...] 98.6 81 17 122/63 82.4 94 07/27 1957 95 Room air 24 hour I O ending at 0700: 07/28 0700 07/27 1900 Intake Total 1350 Output Total 2200 Balance -850 Intake, Oral 1350 Output, Urine 2200 Patient 93.1 kg Weight Weight Standing scale Measurement Method PATIENT WEIGHT: Weight (lb): 205Weight (oz): 4.01Weight (kg): 93.100 MedicationsActive Meds + DC'd Last 24 HrsMidodrine (PROAMATINE) 5 MG 0900,1300,1700 PRN PO (DCD) Sodium Chloride (SODIUM CHLORIDE) 10 ML ASDIR IV (DCD) Amiodarone HCl (CORDARONE) 200 MG BID PO (DCD) Ipratropium [place] (ATROVENT) 500 MCG RTQ2H PRN PRN INH (DCD) Lactulose (LACTULOSE) 20 GM DAILY PRN PRN PO (DCD) Cyanocobalamin (Vitamin B-12 500 mcg tab) 500 MCG DAILY PO (DCD) Ferrous Sulfate (FERROUS SULFATE) 325 MG DAILY PO (DCD) Bisacodyl (DULCOLAX) 10 MG ONCE PRN RECTAL (DCD) Atorvastatin Calcium (LIPITOR) 40 MG 2100 PO (DCD) Clopidogrel Bisulfate (Plavix) 75 MG DAILY PO (DCD) Polyethylene Glycol (MIRALAX) 17 GM DAILY PO (DCD) Pantoprazole (PROTONIX) 40 MG DAILY@0600 PO (DCD) Aspirin (ASPIRIN) 81 MG DAILY PO (DCD) Docusate Sodium (COLACE) 100 MG BID PO (DCD) Sennosides (Senna Lax 8.6 MG TABLET) 17.2 MG BEDTIME PO (DCD) Ipratropium [place] (ATROVENT) 500 MCG RTQ4H INH (DCD) Acetaminophen (TYLENOL) 650 MG Q4H PRN PRN PO (DCD) Acetaminophen (TYLENOL) 650 MG Q4H PRN PRN RECTAL (DCD) Dextrose/Water (DEXTROSE 10% IN WATER) 125 ML ASDIR PRN IV (DCD) Dextrose/Water (DEXTROSE 10% IN WATER) 250 ML ASDIR PRN IV (DCD) Glucagon (GLUCAGON) 1 MG ASDIR PRN IM (DCD) Magnesium Sulfate (MAGNESIUM SULFATE 4GM/SWFI 100ML) 100 ML ASDIR PRN IV (DCD) Magnesium Sulfate (MAGNESIUM SULFATE 2GM/SWFI 50ML) 50 ML ASDIR PRN IV (DCD) Magnesium Sulfate/Dextrose (MAGNESIUM SULFATE 1GM/D5W 100ML) 100 ML ASDIR PRN IV (DCD) Ondansetron HCl (ZOFRAN) 4 MG Q6H PRN PRN IV (DCD) Albumin Human (ALBUMINAR-25%) 12.5 GM ASDIR PRN IV (DCD) Heparin Sodium (Porcine) (HEPARIN SODIUM) 3,000 UNIT ASDIR PRN DIALYSIS (DCD) Lidocaine HCl (LIDOCAINE HCL/PF) 0.5 ML ASDIR PRN I-DERMAL (DCD) Mannitol (Mannitol 20%) 12.5 GM ASDIR PRN IV (DCD) Sodium Chloride (SODIUM CHLORIDE 0.9%) 2,000 ML ASDIR PRN IV (DCD) Tamsulosin HCl (Flomax 0.4 mg) 0.4 MG BEDTIME PO (DCD) Physical ExamGeneral appearance: alert, awakeHead/eyes: atraumatic, normocephalicENT: moist mucous membranes, normal noseNeck: non-tender, no JVDCardiovascular: regular rate and rhythmRespiratory: clear to auscultationAbdomen: non-tender, softGenitourinary: no bladder distentionExtremities: no edema, no swellingNeuro/GIFT OFFICER: alert, oriented X 3, normal speechSkin: dry, intact ResultsFindings/Data:Laboratory Tests 07/28 07/28 0430 0430 Chemistry Sodium [...] (Auto) (14.0 - 32.0 %) 13.8 L Starke % (Auto) (4.8 - 9.0 %) 7.9 Eos % (Auto) (0.3 - 3.7 %) 9.8 H Baso % (Auto) (0.0 - 2.0 %) 0.9 Neut # (Auto) (2.0 - 7.6 x10 3/uL) 7.05 Lymph # (Auto) (1.0 - 3.8 x10 3/uL) 1.45 Starke # (Auto) (0.1 - 0.8 x10 3/uL) 0.83 H Eos # (Auto) (0.0 - 0.2 x10 3/uL) 1.03 H Baso # (Auto) (0.0 - 0.2 x10 3/uL) 0.09 Abs Immat Gran (auto) (0.00 - 0.03 x10 3/uL) 0.07 H Add Manual Diff NO Immature Gran % (0.0 - 2.0 %) 0.7 Nucleated RBC % (0 - 0 %) 0.0 Nucleated RBCs # (Man) (0.0 - 0.1 x10 3/uL) 0.00 Treatment Prophylaxis Treatment ProphylaxisDrain(s)/tube(s): Drain(s)/tube(s): chest Diagnosis, Assessment PlanFree Text A P:Assessment:1-CLAUDETTE likely from urinary retention with underlying CKD. oliguric CLAUDETTE now post op, and shock. Cr cl 7 ml/min. New ESRD. 2- non-STEMI: multivessel disease w main left. S/P CABG X5 on 07/08. 3- BPH. Waters catheter is in place.4- severe bilateral hydronephrosis. 5- shock : Cardiogenic resolved. 6- hyperlipidemia. 7- AGMA resolved. Plan:- HD MWF here. HD today before discharge. - Still has excellent urine output volume. - Ultrasound showed severe bilateral hydronephrosis and medical renal disease. Urology seen and recommended Waters catheter when discharged home with Flomax, and outpatient follow-up.- He underwent LHC on 07/03. - Started on HD on 07/04. - s/p CABG X5 on 07/08- TDC placed 07/15. - cr cl 7 ml/min. - discussed with CM. chacon to d/c home after HD Today. next HD on . Consultants: cardiology, cardiovascular surgery, nephrology at 1939 RPT #:[id number] OF REPORTPRProgress [id number]:10:00G.[id number] Available for patient [id number]:39:14 [facility] 2022-07-28 18:05:00 [id number] [place] [address] PATIENT NAME: SHERRI ARCE ADMIT DATE: 07/02/22ACCOUNT NO: [id number] ROOM NO: [id number] AGE: 81 REPORT TYPE: eECHOCARDIOGRAM REPORT SEX: M ADMITTING PHYSICIAN:Jesus Larson MD ATTENDING PHYSICIAN:Srinath Kaur MD *[place] [id number]: Wvm: [phone] Limited Transthoracic Echocardiogram Patient: Shaylee ArceeStudy Date: 07/28/2022 BP: 127 / 67 Location: [facility]: [id number] : 1940 Age: 81 Height: 72 in / 182.9 [facility]ession[facility] [id number] Gender: M Weight: 204.6 lb / 93 kgBMI/BSA: 27.8 kg/m 2 / 2.15 m 2 *Ordering Physician: * Prosper Ennis MD *Interpreting Physician: * Prosepr Ennis MD*Personnel Research Scientist: * Ayanna Cruz Indications: EVAL EF. Study data: Transthoracic echocardiogram, limited study. Procedure:Transthoracic echocardiography was performed. Image quality wasadequate. Limited 2D and limited spectral Doppler. Location: Bedside. Patient status: Inpatient. Patient room number: 3354. Study status:CHELSEY. Findings Left ventricle: The cavity size is normal. Wall thickness is normal.Systolic function is moderately to severely reduced. The estimatedejection fraction is 35-39%.Right ventricle: Not well visualized. Systolic function is mildlyreduced.Left atrium: The atrium is mildly dilated.PATIENT NAME: SHERRI ARCE Right atrium: The atrium is normal in size.Pericardium: A trivial pericardial effusion is identified. Measurements Left ventricle Value 07/18/2022 Ref AARTI, [...] 07/18/2022 Ref Root diam, 3.25 cm 3.31 ---------PATIENT NAME: SHERRI ARCE ED MM Conclusions Summary: 1. Left ventricle: The cavity size is normal. Wall thickness is normal. Systolic function is moderately to severely reduced. The estimated ejection fraction is 35-39%.2. Right ventricle: Systolic function is mildly reduced.3. Left atrium: The atrium is mildly dilated.4. Pericardium, extracardiac: A trivial pericardial effusion is identified. Prepared and electronically signed by Prosper Ennis MD07/28/2022 18:05 at 1805 PATIENT NAME: SHERRI ARCE :05:00G.[id number] for patient [id number]:06:19 [facility] 2022-07-28 13:30:00 [id number]:30:00 [facility] ([facility]or[facility] Surgery ProgREPORT#:[id number] REPORT STATUS: SignedDATE:07/28/22 TIME: 0 PATIENT: SHERRI ARCE UNIT #: [id number]#: [id number] [address] [birth year] AGE: 81 SEX: M ATTEND: Srinath Kaur AUTHOR: Gianna Hoover * ALL edits or amendments must be made on the electronic/computer document * GeneralPost-op: day 19Status post:07/08/22 CABG x 5 (MISTRY-LAD, SVG-Ladonna, SVG-OM1< SVG-OM3, SVG-PDA) ALEXIS TATUM (RGSV) SubjectiveChief complaint:s/p CABGno complaints Review of SystemsConstitutional:Denies: chills, fever, malaise. Allergy/Immun:Denies: allergic reaction. Respiratory:Denies: SOB. Cardiovascular:Denies: chest pain, palpitations. GI:Denies: abdominal pain, nausea, vomiting. :Denies: dysuria, hematuria. Heme:Denies: bleeding. Neuro:Denies: dizziness, headache, vision change. All systems rev neg: except as marked Objective GeneralVS/I OLast Documented: Result Date Time Pulse Ox 94 [...] scale Measurement Method PATIENT WEIGHT: Weight (lb): 205Weight (oz): 4.01Weight (kg): 93.100 Physical ExamGeneral appearance: alert, awakeWound/incision: Location:sternal Site condition: edges approximated, incision intact, no drainage, no ecchymosis, no erythemaHEENT: anicteric, mucosal membranes moistNeck: supple/no meningismusCardiovascular: normal heart sounds, regular rate rhythmRespiratory: aerating well, symmetric expansion, no distressAbdomen: soft, non-tender, no distentionGenitourinary: foleyExtremities: moves allNeuro/GIFT OFFICER: alert, oriented X 3, normal speech, no motor deficitsPsychiatry: normal affect, normal mood Treatment Prophylaxis Treatment ProphylaxisDrain(s)/tube(s): Drain(s)/tube(s): chest Quality: Trauma Gen Surg Advanced Care Plan 65 or OlderDiscussed with: patient, 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 He denies any previous history of coronary artery disease or other [place]. He was seen and evaluated at [facility]. He was found to have a urinary tract infection with urinary retention and acute kidney. He was started on dialysis via a left femoral temporary catheter. He underwent dialysis on Thursday, Thursday. Renal has been consultedDuring his work-up at outside hospital he underwent Left heart catheterization showing severe Left Main 70%. LAD: Proximal diffuse 80% stenosis and then diffuse 60% in the midsegment and on the distal segment, there is focal 70% stenosis. Diagonal branches with luminal irregularities. Left circumflex, codominant circulation with proximal 80%, mid 80 to 90% and then in the OM, there is proximal 60%, distal left circumflex has a 70% stenosis. RCA large and dominant with proximal 40% stenosis, mid 60% stenosis and then diffuse 50% stenosis all the way distally and the PLV and the PDA with luminal irregularities. CV surgery consulted for evaluation for coronary bypass graft. CAROTIDS- No carotid stenosis CT chest complete IMPRESSION: Small bilateral pleural effusions with bibasilar atelectasis. Echo:1. Left ventricle: The cavity size is at the upper limits of normal. Wall thickness is mildly increased. Systolic function is severely reduced. The estimated ejection fraction is 30-34%. Moderate hypokinesis of the entire myocardium. Doppler parameters are consistent with abnormal left ventricular relaxation (grade 1 diastolic dysfunction).2. Pericardium, extracardiac: A small pericardial effusion is identified along the left ventricular free wall, along the right ventricular free wall, and along the right atrial free wall. Assessment/Plan1) CAD Mutlivessel Will obtain echo,carotids. 2) CLAUDETTE Started dialysis on Creatine 7.3 Renal consulted. 3) BPH- Urinary retention. Waters in place Workup for CABG underway. Will get functional assessment with PT. PFT pending Carotid dopplers- No disease Echo PendingDialyiss per Renal. Baseline Cr unknown. 07/04 07/04 Doing well today, alert, up in the chair. Denies chest painEchocardiogram showed LVEF 30 to 34%, mild MR, trivial TRCT chest images reviewedEncourage I-S and mobilizationCreatinine 5.5 from 7.3, good urine output. Renal US showed bilateral severe hydronephrosis. Plan for HD today and tomorrow Will tentatively schedule patient for surgery on Thursday.Patient seen and plan reviewed with Dr Schwarz 07/05 Remains in a stable condition, denies chest pain BUN 53, creatinine 5.4. Plan for hemodialysis today and tomorrow for clearanceHe is also on Lasix 20 mg IV twice daily, urine output 1.1 L overnightWe will calculate risk of surgery with STS scoreEncourage I-S and mobilizationWill tentatively schedule patient for surgery on Thursday.Pt seen and plan reviewed with Dr Schwarz 07/06 BUN 36, creatinine 4.4. Plan for hemodialysis todayAwaiting CABG tomorrowSurgery, risks involved, STS score, benefits, complications and alternatives were explained to the patient. He acknowledged understanding and is willing to proceedN.p.o. after midnightPatient seen and plan reviewed with Dr. Schwarz 07/09/22OUMOU 1CABG x 5 (MISTRY-LAD, SVG-Ladonna, SVG-OM1< SVG-OM3, SVG-PDA), ALAA, EVH (RGSV)Patient hemodynamically unstable, on epi at 4, and vaso .04, decreased uop overnight- 150ccStarted patient on CRRT 2k/3.5Wean epi as tolerated, Cardiac incex 2.8-3labs and chest x-ray reviewed, electrolytes stable, hgb 6.5- transfuse 2 units PRBCOn 4l nasal cannula- encourage incentive spirometer and deep breathingKeep both chest tubes and monitor outputsGlycemic control on insulin dripCardiac dietBowel regimen protocolPain managementSCDs for DVT and PPI for GI prophylaxisPT/OTMonitor patient closely in CVICUPlan of care discussed with Dr. Schwarz 07/10/22OUMOU 2Patient alert, awake, and oriented, no distres notedlabs and CXR reviewed stableBreathing comfortably on 3l nasal cannula- wean as tolerated to melissa O2 sats > 92%Encourage I-S use and deep breathingOn CRRT- able to remove 2.9L overnight- nephrology followingCardiac index 3.1- wean off epi dripKeep chest tubes for now and monitor outputsTransition to sliding scale insulin- cardiac dietTry to get patient out of bed to chair today- ambulate with PT/OTSCDs for DVT prophylaxisKeep patient in CVICU for close monitoring 07/11/22PO 3Patient in stable condition, overnight events noted- decreased urine output 35 ml last night-started on dopamine gtt for renal perfusionCardiac index 3.5- epi currently at 2- will discontinue today, vasopressin at 0.02, added low dose midodrine 2.5 mg TID, repeat echocardiogram.Renal Following- trial LasixPatient has Left femoral temp dialysis cath, Will need tunneled dialysis IJ cathplaced if need dialysis. On 5l nasal cannula- wean off as tolerated, encourage incentive spirometer and deep breathingKeep left pleural chest tube and monitor output- > 200 cc Tolerating diet, bowel regimen protocolPT/OT- patient out of bed to chair today- encourage ambulationDVT prophylaxis with SCDsMonitor patient closely in CVICUPlan discussed with multidisciplinary teamPlan discussed with Dr Schwarz/ Dr Rodríguez 07/12/22PO 5,Patient resting comfortable. Patient with hx of urinary retention- After standing today- voided 1.4 L. Needs Urology consult for retention K 5.4- HD in progress. Dr Plaza following. CT output 20- DC today. Pacers remain in place. 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 Card: Remains in sinus rhythm. Respir: on 7 L NC O2 95%Dispo: Rehab consultedPatient seen and exmained by Dr Rodríguez. Plan discussed with Team 07/13/22 5Patient with no new complaints. Recieved HD yesterday.Requiring less oxygen, now on 3l nasal cannula- continue to wean offCXR reviewed left apical pneumothorax 4cm/30%, Chest tube drained 140 overnight,placed back on suction to clear pneumo, CT drianed 200cc this AM. on suction. Labs reviewed- stable, decreased WBC, hgb stable, CR 3.9Eating welll, +BMUO- 550CC, BP improved on midodrine. Continue PT/OT, ambulation and incentive spirometer useRehab folowing Monitor in ICU todayDisucssed with Dr Schwarz- DC femoral line and Central line today. DC art line. Will re-eval need for dialysis cath Thursday. Consider tunnelled cath if need.Patient seen and examined by Dr Rodríguez. Plan discussed with Care team. 07/14POD 6Patient in stable condition, no distress notedRemains on room air, O2 sats > 92%, encourage I-S use and deep breathingCXR shows moderate left apical pneumothorax unchangedCT remained on suction, no airleak noConsult IR for pigtail chest tube placement this morningCardiac/renal dietLabs reviewed- K 5.1- repeat labs K 4.8Nephrology followingContinue therapy with PT/OTFollow up with urology for waters catheter- Dr Harris consulted.Monitor in CVICUPlan of care discussed with Dr Schwarz and multidisciplinary team 07/15/22POD 7Patient alert, awake, and oriented, no distress, no complaints at this timeBreathing comfortable on room airCXR shows resolved pneumothoraxLP and pigtail chest tube- no air leak noted, minimal output from LP 40 overnightLabs reviewed, K 5.2- corrected, follow up with nephrology to discuss need for dialysisTrend labs this afternoonBowel regimen, +gasFoley catheter discontinued per urology- voiding trial this AMAmbulation and incentive spirometer use encouragedDVT prophylaxis with SCDsKeep in ICU DISP: SNF- Case management Discussed plan of care with multidisciplinary team and Dr. Schwarz 3POD 8Patient doing well, alert, awake, and orientedO2 sats 93% on room air, encourage I-SCXR stable- no pneumo notedLeft pigtail chest tube - no air leak, clamped this morning, repeat CXRPlacement of tunneled dialysis catheter (BioFlo DuraMax 28 cm) yesterdayHD treatment done yesterday evening, plan for HD treatment today per nephrologyPatient failed voiding trial, waters catheter replaced- follow up with urologyEating wellContinue PT/OT- ambulationTransfer to CV 1 intermediate care unitDischarge planning for SNF- CM following and to set up dialysis chairPatient seen with Dr. Schwarz and discussed plan of care with multidisciplinary team. 07/17/22Patient in stable condition, no complaintsLabs and CXR reviewed- stableLeft pigtail chest tube discontinued yesterday- no pneumo notedRemains on room air, no distress- I-S encouragedCardiac diet, +BMKeep waters per urology f/u outpt, continue flomaxHD per nephrology- CM to setup outpt dialysis chairAwaiting bed availability on CV 1Discharge planning- SNFPlan of care discussed with multidisciplinary team and Dr. Schwarz. 07/18 Patient in stable condition, no complaintsRemains on room air, no distress- I-S encouragedEpicardial pacing wires discontinued. Limited echo to rule out pericardial effusionKeep waters per urology f/u outpt, continue flomaxHD per nephrology- CM to setup outpt dialysis chairDischarge planning- SNFPlan of care discussed with multidisciplinary team and Dr. Schwarz. 07/19 No new eventsEchocardiogram done, report pendingHD per nephrology- CM to setup outpt dialysis chairWaiting insurance approval for shelter facilityPatient seen and plan reviewed with Dr. Schwarz 07/20 Remains in a stable condition.Echocardiogram showed LVEF 30 to 34%, trivial pericardial effusionHD schedule per nephrologyAwaiting insurance approval for SNF 07/21 No complaints todayHD schedule per nephrologyAwaiting insurance approval for SNFEncourage I-S and mobilization 07/22 Remains in stable conditionContinue current management.Aspirin, Plavix, statin. Did not tolerate metoprolol, on midodrine 5 mg 3 timesdailyWBCs trending downAwaiting insurance approval for SNF 07/23 No new events Hemodialysis this mornning Hemodynamically stable, sinus rhythm 80sAwaiting placement 07/24 Doing well today No changes in sternal incision Sternal precautions for 6 weeks Awaiting placement 07/25/22Doing well. Denies CPDialysis today. Sternum clean dryLabs reveiwed.Life vest ordered. EF 30%- 35%Awaiting placement 07/26/22Doing well, CT sutures removed. Respir: on Room air 98%Cardiac: remains sinus rhtyhmLife vest at bedside. Awaiting transfer to facility.Labs reviewed. CXR reviewed- stable. encouraghe IS- Deep breathingOut of bed with PT 07/27/22Doing well. No complaints. Wound clean, Dry. Respir: 99% on room air. Life vest at bedside, Contnue dialysis- Awaiting transfer to [facility]. Stable. Patient seen and examined by Dr Schwarz 07/28/22Patient restign comfortable. Wounds clean and dry. Sutures are out., Breathing on rroom air 99%Per Case management- denied Patient with family to come pick him up todayOkay to [place] home with Family support. Consultants: cardiology, cardiovascular surgery, nephrology at 1335 at 1001 RPT #:[id number] OF REPORTPRProgress [id number]:30:[id number] Available for patient [id number]:35:40 [facility] 2022-07-28 12:32:00 [id number]:32:00 [facility] HospitalHospital[facility] Discharge SummaryREPORT#:[id number] REPORT STATUS: SignedDATE:07/28/22 TIME: 1232 PATIENT: SHERRI ARCE UNIT #: [id number]#: [id number] [place] [facility] [place]DOB: [birth year] AGE: 81 SEX: M ATTEND: Srinath Kaur AUTHOR: Srinath Kaur MD * ALL edits or amendments must be made on the electronic/computer document * General Information Free Text General NotesFree Text General Notes:ON DIALYSIS AT NOW, HE'S READY TO GO HOME WITH HH AND ALREADY HAD DIALYSIS SETUP IN [place]. I SPOKE TO SONYA (PREMIUM CARD CANCELLATION CLERK FOR DR. ENNIS) AND [facility] WITH LIFEVEST WHICH HE SAYS HE MAY NOT WEAR IT. Date of admission:Observation Start Date: Date of admission: 07/02/22 Discharge date: 07/28/22Discharge diagnosis:SEE BELOW. Hospital course:81 WM WITH BPH, GOITER, HTN, ADMITTED WITH ACUTE SYSTOLIC CHF EXAC, AND ARF DUE TO POST-OBSTRUCTIVE NEPHROPATHY, NOW REQUIRING HEMODIALYSIS WHICH IS ALREADY SETUP OUTPATIENT. HE WAS TREATED FOR CHF AND HAD A CAHT WITH 3-V CAD AND TRANSFERRED FROM [place] FOR CABG X5 BY CTS. SEEN BY RENAL/CARD/REHAB/ICC,AND RECOVERED WELL AND IS ABLE TO RETURN HOME WITH HH.Consultants: cardiology, cardiovascular surgery, nephrologyPt. condition on discharge: improved, stable Free Text DxA P NotesFree text DxA P notes:NSTEMI, CAD (coronary artery disease), S/P CABG X 5 ON 07/08- STABLE, CARD/CTS SEEN, ECHO EF 30-35%, HAS LIFEVEST AT , D/C HOME SINCE DOING WELL WITH HH. patient presented with NSTEMI and found to hve severe CAD. Cardiac cath shows: Left Main - Distal 70% LAD - Proximal 80% with another 60% and 70% lessions Cir - Proximal 80%,mid 80-90%, Distal 70% and OM 60% RCA - large dominant with proximal 40%, Mid 60%. Echo: ef 30-34%, mod hypokinesis of entire myocardium, grade 1 diastolic dysfunction Patient on ASA, plavix, BB and Statin on amiodarone, Beta-tomas as tolerated for low BP, Acute systolic heart failure - STABLE, NO CHARLY/BB DUE TO LOW BP, ON MIDODRINE PRN, EF 30-35%, REPEAT ECHO PENDING Echocardiac with estimated LVEF of 30 to 34% with grade 1 diastolic dysfunction-s/p Lasix 20 mg twice daily 07/05 -on metoprolol 12.5 mg bid on hold now, BP low-no ACEI/ spironolactione for CLAUDETTE-Start GDMT prior to discharge-Await LifeVest214 - LIFEVEST at bedside. 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 No prior Hx of renal disease. hx of BPH and treated with Fosamax w/o improvement nd continue to have difficulty urinating. On admission was found to be on acute renal filaure and had received HD twice prior to arrival here (thursday and thursday). 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 BPH (benign prostatic hyperplasia) - ABOVE, ON WATERS Started on Flomax at the previous hospital, will continue with it. Waters catheter in place, continue Waters catheter as per nephrology 07/05 Goiter Hx of Goiter and surgical resection. TSH 3.33, within normal limits. Patient is not on Thyroid medication. RXT LEUKOCYTOSIS - STABLE, NO INFECTION DEBILITY - OT/PT SEEN, SNF TX SOON UTI continue Rocephin for empiric treatment pending results of urine culture No growth for 48 hours DVT prophylaxis: Heparin 5000 units every 8 hoursDiet: Cardiac dietCODE STATUS: Full code Disposition: Status post CABG x5 on 07/09, hemodialysis as per nephrology. Worked with PT in his room, on 2 L oxygen via nasal cannula. PT/OT on board. Await [facility] and SNF placement 07/22- awaiting SNF. lifevest arranged.07/23 stable, awaiting SNF placement07/24- awaiting SNF07/25 awaiting SNF, discussed with case management07/26 - awaiting SNF07/27 - PERHAPS PM R TO REASSESS and see if home with H/H is now an option since he has been in the hospital for so long, getting PT here. Med Rec Med RecDischarge meds:Stop taking the following medications:ATORVASTATIN (LIPITOR) 20 MG TAB 20 MILLIGRAM ORAL DAILY. METOPROLOL TARTRATE (LOPRESSOR) 25 MG TAB 12.5 MILLIGRAM ORAL TWICE DAILY. cefTRIAXone (ROCEPHIN) 1 GRAM/50 ML PIGGYBACK 1 GRAM INTRAVENOUS EVERY 24 HOURS. VANCOMYCIN/D5W (VANCOCIN/D5W) 1 GRAM/250 ML PIGGYBACK 1 GRAM INTRAVENOUS DIALYSIS - DOSE DURING. ONDANSETRON (ONDANSETRON) 4 MG/2 ML VIAL 4 MILLIGRAM INTRAVENOUS EVERY 6 HOURS NEEDED. as needed for NAUSEA AND VOMITING Continue taking these medications:ASPIRIN (ASPIRIN) 81 MG TAB.CHEW 81 MILLIGRAM ORAL DAILY. TAMSULOSIN ER (FLOMAX) 0.4 MG CAP.SR.24H 0.4 MILLIGRAM ORAL BEDTIME. Days = 30 Qty = 30 This prescription has been renewed Start taking the following new medications:CLOPIDOGREL (PLAVIX) 75 MG TAB 75 MILLIGRAM ORAL [...] = 3 The following medications have been changed:Old:ACETAMINOPHEN (TYLENOL) 325 MG TAB 650 MILLIGRAM ORAL EVERY 6 HOURS NEEDED. as needed for PAIN SCALE 1-3/TEMP ABOVE 100F New:ACETAMINOPHEN (TYLENOL) 325 MG TAB 650 MILLIGRAM ORAL EVERY 6 HOURS NEEDED. as needed for PAIN SCALE 1-3/TEMP ABOVE 100F Days = 7 Qty = 20 Instructions: CAN GET THIS OTC. ObjectiveVS/I OLast Documented: Result Date Time Pulse Ox 94 [...] scale Measurement Method General appearance: alert, awake, orientedHead/Eyes: EOMINeck: no JVD, HAS A CROCKER BEARDCardiovascular: normal heart sounds, regular rate rhythmRespiratory: aerating well, clear to auscultation, symmetric expansion, no distressAbdomen: non-tender, normal bowel sounds, soft, no distention, no guarding, no reboundGenitourinary: urinary catheterExtremities: no edemaMusculoskeletal: normal inspectionNeuro/GIFT OFFICER: normal speech, no motor deficits, no sensory deficitsSkin: intact, normal color, no rashPsychiatry: normal affect ResultsFindings/Data:Laboratory Tests: 07/28 07/28 0430 0430 Chemistry Sodium [...] (Auto) (14.0 - 32.0 %) 13.8 L Starke % (Auto) (4.8 - 9.0 %) 7.9 Eos % (Auto) (0.3 - 3.7 %) 9.8 H Baso % (Auto) (0.0 - 2.0 %) 0.9 Neut # (Auto) (2.0 - 7.6 x10 3/uL) 7.05 Lymph # (Auto) (1.0 - 3.8 x10 3/uL) 1.45 Starke # (Auto) (0.1 - 0.8 x10 3/uL) 0.83 H Eos # (Auto) (0.0 - 0.2 x10 3/uL) 1.03 H Baso # (Auto) (0.0 - 0.2 x10 3/uL) 0.09 Abs Immat Gran (auto) (0.00 - 0.03 x10 3/uL) 0.07 H Add Manual Diff NO Immature Gran % (0.0 - 2.0 %) 0.7 Nucleated RBC % (0 - 0 %) 0.0 Nucleated RBCs # (Man) (0.0 - 0.1 x10 3/uL) 0.00 Discharge Instructions PCPPCP follow-up:PCP: Los Crawford DO [facility] CareAdditional Discharge Routines: Heel Sprayer Follow-Up, Fluid RestrictionsDiet: Cardiac, Fluid Restrictions, Low SodiumFluid restriction(mls/day):1,500Weight monitoring: With DialysisActivity: As Tolerated Follow-up AppointmentsPCP follow-up: PCP: Los Crawford DO PCP follow up timeframe: In 2-3 weeks Special instructions:OR HIS PCPConsulting provider 1: Provider 1: Lina Schwarz MD Specialty: Thoracic Surgery Consult follow up timeframe: In 2-3 weeksConsulting provider 2: Provider 2: Evelina Plaza MD Specialty: Nephrology Follow up timeframe: In 2-3 weeksConsulting provider 3: Provider 3: Prosper Ennis MD Specialty: CardiologyInterventional Follow up timeframe: In 2-3 weeks Quality: Discharge Advanced Care Plan 65 or OlderDiscussed with: patient, CARD PREMIUM CARD CANCELLATION CLERK (SONYA) Current MedicationsCurrent medication review:I attest that the foregoing medication list in the medical record is true, accurate, and complete to the best of my knowledge. at 1240 RPT #:[id number] OF REPORTDSDischarge [id number]:32:[id number] for patient [id number]:40:29 HCACL 2022-07-28 11:41:00 [id number]:41:00 [facility] ([facility])Cardiology Progress NoteREPORT#:[id number] REPORT STATUS: SignedDATE:07/28/22 TIME: 1141 PATIENT: SHERRI ARCE UNIT #: [id number]#: [id number] [address] AGE: 81 SEX: M ATTEND: Srinath Kaur [facility] AUTHOR: Sonya Stacy * ALL edits or amendments must be made on the electronic/computer document * SubjectivePatient reports:No: complaints. Objective GeneralVS/I O:24 hour I O ending at 0700: 07/28 0700 07/27 1900 Intake Total 1350 Output Total 2200 Balance -850 Intake, Oral 1350 Output, Urine 2200 Patient 93.1 kg Weight Weight Standing scale Measurement Method Vital Signs: Date Time Temp Pulse Resp B/P B/P Pulse O2 O2 Flow FiO2 Mean Ox Delivery Rate 07/28 1043 [...] 98 Room air PATIENT WEIGHT: Weight (lb): 205Weight (oz): 4.01Weight (kg): 93.100 Medications:Active Meds + DC'd Last 24 HrsMidodrine (PROAMATINE) 5 MG 0900,1300,1700 PRN PO Sodium Chloride (SODIUM CHLORIDE) 10 ML ASDIR IV Amiodarone HCl (CORDARONE) 200 MG BID PO Ipratropium [place] (ATROVENT) 500 MCG RTQ2H PRN PRN INH Lactulose (LACTULOSE) 20 GM DAILY PRN PRN PO Cyanocobalamin (Vitamin B-12 500 mcg tab) 500 MCG DAILY PO Ferrous Sulfate (FERROUS SULFATE) 325 [...] (Senna Lax 8.6 MG TABLET) 17.2 MG BEDTIME PO Ipratropium [place] (ATROVENT) 500 MCG RTQ4H INH Acetaminophen (TYLENOL) 650 MG Q4H PRN PRN PO Acetaminophen (TYLENOL) 650 MG Q4H PRN PRN RECTAL Dextrose/Water (DEXTROSE 10% IN WATER) 125 ML ASDIR PRN IV (CKD) Dextrose/Water (DEXTROSE 10% IN WATER) 250 ML ASDIR PRN IV (CKD) Glucagon (GLUCAGON) 1 MG ASDIR PRN IM Magnesium Sulfate (MAGNESIUM SULFATE 4GM/SWFI 100ML) 100 ML ASDIR PRN IV Magnesium Sulfate (MAGNESIUM SULFATE 2GM/SWFI 50ML) 50 ML ASDIR PRN IV Magnesium Sulfate/Dextrose (MAGNESIUM SULFATE 1GM/D5W 100ML) 100 ML ASDIR PRN IV Ondansetron HCl (ZOFRAN) 4 MG Q6H PRN PRN IV Albumin Human (ALBUMINAR-25%) 12.5 GM ASDIR PRN IV Heparin Sodium (Porcine) (HEPARIN SODIUM) 3,000 UNIT ASDIR PRN DIALYSIS Lidocaine HCl (LIDOCAINE HCL/PF) 0.5 ML ASDIR PRN I-DERMAL (CKD) Mannitol (Mannitol 20%) 12.5 GM ASDIR PRN IV Sodium Chloride (SODIUM CHLORIDE 0.9%) 2,000 ML ASDIR PRN IV Tamsulosin HCl (Flomax 0.4 mg) 0.4 MG BEDTIME PO Status post:07/08/22 CABG x 5 (MISTRY-LAD, SVG-Ladonna, SVG-OM1< SVG-OM3, SVG-PDA) ALAA Physical ExamGeneral appearance: alert, awakeHead/Eyes: atraumaticENT: moist mucosal membranesNeck: no JVDCardiovascular: CV assessment: regular rate and rhythm, no murmurRespiratory: decreased breath sounds, no distressAbdomen: soft, non-tender, normal bowel sounds, no distention, no guardingUpper extremity: UE assessment: normal temperature, no edemaLower extremity: LE assessment: normal temperature, no edemaMusculoskeletal: normal inspectionNeuro/GIFT OFFICER: alert, oriented X 3, normal speechSkin: dryPsychiatry: normal affect ResultsFindings/Data:Laboratory Tests 07/28 07/28 043 0430 Chemistry Sodium (134 - 147 mEq/L) [...] (Auto) (14.0 - 32.0 %) 13.8 L Starke % (Auto) (4.8 - 9.0 %) 7.9 Eos % (Auto) (0.3 - 3.7 %) 9.8 H Baso % (Auto) (0.0 - 2.0 %) 0.9 Neut # (Auto) (2.0 - 7.6 x10 3/uL) 7.05 Lymph # (Auto) (1.0 - 3.8 x10 3/uL) 1.45 Starke # (Auto) (0.1 - 0.8 x10 3/uL) 0.83 H Eos # (Auto) (0.0 - 0.2 x10 3/uL) 1.03 H Baso # (Auto) (0.0 - 0.2 x10 3/uL) 0.09 Abs Immat Gran (auto) (0.00 - 0.03 x10 3/uL) 0.07 H Add Manual Diff NO Immature Gran % (0.0 - 2.0 %) 0.7 Nucleated RBC % (0 - 0 %) 0.0 Nucleated RBCs # (Man) (0.0 - 0.1 x10 3/uL) 0.00 Laboratory Tests 07/28 0430 Chemistry Magnesium (1.80 - 2.40 mg/dL) 1.91 Results: labs reviewed, vital signs reviewed, rhythm personally rev'dTelemetry Interpretation:sinus rhythm Diagnosis, Assessment PlanPlan discussed with: patient, admitting physician, collaborating MD, nurse Free Text DxA P NotesFree Text DxA P Notes:Mr. Arce is a pleasant 81 y/o M w/ PMHx: HTN, HLD presented to [facility] on 06/28/22 for chest pain and sob. He was diagnosed NSTEMI. [facility] showed multivessel CAD. Transferred to [facility] for CABG. 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 urology consulted for bladded outlet obstruction and hydronephrosis, started on Flomax HD per nephro - HTN. bp stable, midodrine as needed - HLD. On statins. - Anemia. monitor Patient wants to go home. He has been waiting SNF placement since last week.Okay to DC home with homehealth and lifevest. at 1625 at 0730 RPT #:[id number] OF REPORTPRProgress [id number]:41:[id number] Available for patient [id number]:26:25 HCACL 2022-07-28 07:19:00 [id number]:19:00 [facility] ([facility])Rehab Progress NoteREPORT#:[id number] REPORT STATUS: SignedDATE:07/28/22 TIME: 718 PATIENT: SHERRI ARCE UNIT #: [id number]#: [id number] [address] AGE: 81 SEX: M ATTEND: Srinath Kaur [facility] AUTHOR: Magdaleno Washburn * ALL edits or amendments must be made on the electronic/computer document * SubjectiveChief complaint:Rehab follow-upDoing very wellSitting up in chairDenies pain or sobPleasantDenies NAIK/N/V/D/CP14 systems reviewed and neg. except that above. Objective GeneralVS:Vital Signs: Date Time Temp Pulse Resp B/P B/P Pulse O2 O2 Flow FiO2 Mean Ox Delivery Rate 07/28 0522 [...] 92 Room air PATIENT WEIGHT: Weight (lb): 205Weight (oz): 4.01Weight (kg): 93.100 Medications:Active Meds + DC'd Last 24 HrsMidodrine (PROAMATINE) 5 MG 0900,1300,1700 PRN PO Sodium Chloride (SODIUM CHLORIDE) 10 ML ASDIR IV Amiodarone HCl (CORDARONE) 200 MG BID PO Ipratropium [place] (ATROVENT) 500 MCG RTQ2H PRN PRN INH Lactulose (LACTULOSE) 20 GM DAILY PRN PRN PO Cyanocobalamin (Vitamin B-12 500 mcg tab) 500 MCG DAILY PO Ferrous Sulfate (FERROUS SULFATE) 325 [...] (Senna Lax 8.6 MG TABLET) 17.2 MG BEDTIME PO Ipratropium [place] (ATROVENT) 500 MCG RTQ4H INH Acetaminophen (TYLENOL) 650 MG Q4H PRN PRN PO Acetaminophen (TYLENOL) 650 MG Q4H PRN PRN RECTAL Dextrose/Water (DEXTROSE 10% IN WATER) 125 ML ASDIR PRN IV (CKD) Dextrose/Water (DEXTROSE 10% IN WATER) 250 ML ASDIR PRN IV (CKD) Glucagon (GLUCAGON) 1 MG ASDIR PRN IM Magnesium Sulfate (MAGNESIUM SULFATE 4GM/SWFI 100ML) 100 ML ASDIR PRN IV Magnesium Sulfate (MAGNESIUM SULFATE 2GM/SWFI 50ML) 50 ML ASDIR PRN IV Magnesium Sulfate/Dextrose (MAGNESIUM SULFATE 1GM/D5W 100ML) 100 ML ASDIR PRN IV Ondansetron HCl (ZOFRAN) 4 MG Q6H PRN PRN IV Albumin Human (ALBUMINAR-25%) 12.5 GM ASDIR PRN IV Heparin Sodium (Porcine) (HEPARIN SODIUM) 3,000 UNIT ASDIR PRN DIALYSIS Lidocaine HCl (LIDOCAINE HCL/PF) 0.5 ML ASDIR PRN I-DERMAL (CKD) Mannitol (Mannitol 20%) 12.5 GM ASDIR PRN IV Sodium Chloride (SODIUM CHLORIDE 0.9%) 2,000 ML ASDIR PRN IV Tamsulosin HCl (Flomax 0.4 mg) 0.4 MG BEDTIME PO Functional ProgressFunctional progress:No therapies over weekend Physical ExamGeneral appearance: alert, awakePsych: alert, oriented x 3HEENT: anicteric, sclera clearNeck: supple, no JVDCardiovascular: regular rate rhythm, S1/G6Ajusipwcqjl: aerating well, clear bilaterallyAbdomen: bowel sounds present, non-distended, softSkin: intact, no rashMusculoskeletal - general: Musculoskeletal - general: joints normal, normal muscle mass, normal toneNeuro/GIFT OFFICER: alert, oriented X 3, CNII-XII intact ResultsFindings/Data:Laboratory Tests: 07/28 0430 Hematology WBC (4.5 - [...] (Auto) (14.0 - 32.0 %) 13.8 L Starke % (Auto) (4.8 - 9.0 %) 7.9 Eos % (Auto) (0.3 - 3.7 %) 9.8 H Baso % (Auto) (0.0 - 2.0 %) 0.9 Neut # (Auto) (2.0 - 7.6 x10 3/uL) 7.05 Lymph # (Auto) (1.0 - 3.8 x10 3/uL) 1.45 Starke # (Auto) (0.1 - 0.8 x10 3/uL) 0.83 H Eos # (Auto) (0.0 - 0.2 x10 3/uL) 1.03 H Baso # (Auto) (0.0 - 0.2 x10 3/uL) 0.09 Abs Immat Gran (auto) (0.00 - 0.03 x10 3/uL) 0.07 H Add Manual Diff NO Immature Gran % (0.0 - 2.0 %) 0.7 Nucleated RBC % (0 - 0 %) 0.0 Nucleated RBCs # (Man) (0.0 - 0.1 x10 3/uL) 0.00 Diagnosis, Assessment PlanFree Text A P:Non-STEMIMultivessel CADS/p CABG o8Safjzmsc deconditioningImpaired mobility and gaitPostoperative anemiaDyslipidemiaHypertensionAKIAcute systolic heart failureHemodynamic issues postopLeukocytosis trending downPleural effusion and atelectasis Plan:Continue PT/OTOut of bed to chairWork on strength, bed mobility, transfers, gaitSternal precautionIncrease enduranceFall precautionsMonitor p.o. intake and nutritionStrict decubitus precautionsMonitor anemia. Persistent left pneumothorax. IR guided pigtail place. CXR shows expansion of the lung Urology consulted -Pt on FlomaxNephrology managing renal issues and elevated K+Utilize IS to reduce atelectasisAdvance therapies as toleratedPt lives alone and has 5 to 6 stairs to enter houseSNF order has been placed. Will require insurance approval for SNF, dialysis clinic acceptance, approval for [facility] prior to discharge Total time was 33 minutes > 50% with patient performing physical examination, discussing plan of care, goals, therapies, progress, medications, labs, SNF. All questions answeredRehab attestation:. at 1433 RPT #:[id number] OF REPORTPRProgress [id number]:19:[id number] Available for patient [id number]:33:33 HCACL 2022-07-27 14:44:00 [id number]:44:00 [facility] ([facility])Nephrology Progress NoteREPORT#:[id number] REPORT STATUS: SignedDATE:07/27/22 TIME: 1444 PATIENT: SHERRI ARCE UNIT #: [id number]#: [id number] [address] [birth year] AGE: 81 SEX: M ATTEND: Srinath Kaur [facility] AUTHOR: Evelina Plaza MD * ALL edits or amendments must be made on the electronic/computer document * SubjectiveChief complaint:Feeling okay and has no complaints at this time. Objective Physical ExamHead/eyes: atraumatic, normocephalicENT: moist mucous membranes, normal noseNeck: non-tender, no JVDCardiovascular: regular rate and rhythmRespiratory: clear to auscultationAbdomen: non-tender, softGenitourinary: no bladder distentionExtremities: no edema, no swellingNeuro/GIFT OFFICER: alert, oriented X 3, normal speechSkin: dry, intact Treatment Prophylaxis Treatment ProphylaxisDrain(s)/tube(s): Drain(s)/tube(s): chest Diagnosis, Assessment PlanFree Text A P:Assessment:1-CLAUDETTE likely from urinary retention with underlying CKD. oliguric CLAUDETTE now post op, and shock. 2- non-STEMI: multivessel disease w main left. S/P CABG X5 on - BPH. Waters catheter is in place.4-severe bilateral hydronephrosis5- shock : Cardiogenic resolved. 6-hyperlipidemia7- AGMA resolved. Plan:- unknown Scr baseline.- HD MWF here. seen during HD today. - Still has excellent urine output volume. - Ultrasound showed severe bilateral hydronephrosis and medical renal disease. Urology seen and recommended Waters catheter when discharged home with Flomax, and outpatient follow-up.- He underwent LHC on 07/03. - Started on HD on 07/04. - s/p CABG X5 on 07/08- TDC placed 07/15. - cr cl 7 ml/min. - discussed with CM. HD scheduled TTS, hopefully first HD on Thursday. okay to d/c home after HD in am. Pending placement arrangement. Consultants: nephrology at 1910 RPT #:[id number] OF REPORTPRProgress [id number]:44:[id number] Available for patient [id number]:11:06 HCACL 2022-07-27 14:06:00 [id number]:06:00 [facility] ([facility])Hospitalist Progress NoteREPORT#:[id number] REPORT STATUS: SignedDATE:07/27/22 TIME: 1406 PATIENT: SHERRI ARCE UNIT #: [id number]#: [id number] [address] [birth year] AGE: 81 SEX: M ATTEND: Jesus Larson [facility] AUTHOR: Jesus Larson MD * ALL edits or amendments must be made on the electronic/computer document * SubjectiveChief complaint:pt now feels like he may be ready to go home (already has been in the hospital since 07/02). no cp no sob. ambulating. Objective GeneralVS/I O:Vital Signs: Date Time Temp Pulse Resp B/P B/P Pulse O2 O2 Flow FiO2 Mean Ox Delivery Rate 07/27 1224 97.9 82 20 116/56 0.0 98 Room air 07/27 0904 95 Room air 07/27 0845 97.7 88 16 92/51 0.0 92 Room air 07/27 0545 95 Room air 21 19 0439 98.1 86 18 107/50 69.3 94 [...] scale Measurement Method PATIENT WEIGHT: Weight (lb): 182Weight (oz): 15.74Weight (kg): 83.000 Physical ExamGeneral appearance: alert, awakeHead/Eyes: atraumatic, EOMI, normal conjunctiva/sclera, normocephalic, PERRLAENT: moist mucosal membranesNeck: no JVDCardiovascular: normal heart sounds, regular rate rhythmRespiratory: aerating well, clear to auscultation, symmetric expansion, no distressAbdomen: non-tender, normal bowel sounds, soft, no distention, no guarding, no reboundGenitourinary: urinary catheterExtremities: no edemaMusculoskeletal: normal inspectionNeuro/GIFT OFFICER: normal speech, no motor deficits, no sensory deficitsSkin: intact, normal color, no rashPsychiatry: normal affect ResultsRadiology data:Laboratory Tests 07/27/22 0415:[Embedded Image Not Available] 07/26/22 0400:[Embedded Image Not Available] Current Medications Sig/Earl Start time LastMedication Dose Route Stop Time Status AdminMidodrine 5 MG 0900,1300,1700 PRN 07/17 2100 AC 07/24 PO 08/16 2059 1004Sodium Chloride 10 ML ASDIR 07/17 1030 AC 07/26 IV 08/16 1029 1450Amiodarone HCl 200 MG BID 07/16 0900 AC 07/27 PO 08/15 0859 0839Ipratropium [place] 500 MCG RTQ2H PRN PRN 07/11 182 AC 07/26 INH 08/10 1820 2034Lactulose 20 GM DAILY PRN PRN 07/11 1245 AC 07/11 PO 08/10 1244 1411Cyanocobalamin 500 MCG DAILY 07/11 09 AC 07/27 PO 08/10 0859 0839Ferrous Sulfate 325 MG DAILY 07/11 09 AC 07/27 PO 08/10 0859 0839Bisacodyl 10 MG ONCE PRN 07/10 1200 AC 07/11 RECTAL 08/09 1159 0928Atorvastatin Calcium 40 MG 2100 07/09 2100 AC 07/26 PO 08/08 2058 2116Clopidogrel Bisulfate 75 MG DAILY 07/09 09 AC 07/27 PO 08/08 0859 0839Polyethylene Glycol 17 GM DAILY 07/09 09 AC 07/24 PO 08/08 0859 1008Pantoprazole 40 MG DAILY@0600 07/09 0600 AC 07/27 PO 08/08 0559 0603Aspirin 81 MG DAILY 07/09 0020 AC 07/27 PO 08/08 0019 0839Docusate Sodium 100 MG BID 07/08 2100 AC 07/26 PO 08/07 2058 0904Sennosides 17.2 MG BEDTIME 07/08 2100 AC 07/24 PO 08/07 2058 2048Ipratropium [place] 500 MCG RTQ4H 07/08 1900 AC 07/27 INH 08/07 1859 1224Acetaminophen 650 MG Q4H PRN PRN 07/08 1830 AC 07/24 PO 08/07 1829 1005Acetaminophen 650 MG Q4H PRN PRN 07/08 1830 AC RECTAL 08/07 1829Dextrose/Water 125 ML ASDIR PRN 07/08 1830 CKD IV 08/07 1829Dextrose/Water 250 ML ASDIR PRN 07/08 1830 CKD IV 08/07 1829Glucagon 1 MG ASDIR PRN 07/08 1830 AC IM 08/07 1829Magnesium Sulfate 100 ML ASDIR PRN 07/08 1830 AC IV 08/07 1829Magnesium Sulfate 50 ML ASDIR PRN 07/08 1830 AC 07/26 IV 08/07 1829 0904Magnesium Sulfate/ 100 ML ASDIR PRN 07/08 1830 AC 07/16Dextrose IV 08/07 1829 0650Ondansetron HCl 4 MG Q6H PRN PRN 07/08 1830 AC IV 08/07 1829Albumin Human 12.5 GM ASDIR PRN 07/03 1200 AC 07/25 IV 08/03 1155 0915Heparin Sodium 3,000 UNIT ASDIR PRN 07/03 1200 AC 07/26 (Porcine) DIALYSIS 08/02 1159 1448Lidocaine HCl 0.5 ML ASDIR PRN 07/03 1200 CKD I-DERMAL 08/03 1155Mannitol 12.5 GM ASDIR PRN 07/03 1200 AC IV 08/03 1155Sodium Chloride 2,000 ML ASDIR PRN 07/03 1200 AC 07/26 IV 08/03 1155 1447Tamsulosin HCl 0.4 MG BEDTIME 07/02 2144 AC 07/26 PO 08/01 Laboratory Tests: 07/27 07/27 0415 0419 Chemistry Sodium (134 - 147 mEq/L) 142 [...] (Auto) (14.0 - 32.0 %) 10.3 L Starke % (Auto) (4.8 - 9.0 %) 8.3 Eos % (Auto) (0.3 - 3.7 %) 9.4 H Baso % (Auto) (0.0 - 2.0 %) 0.7 Neut # (Auto) (2.0 - 7.6 x10 3/uL) 7.69 H Lymph # (Auto) (1.0 - 3.8 x10 3/uL) 1.12 Starke # (Auto) (0.1 - 0.8 x10 3/uL) 0.90 H Eos # (Auto) (0.0 - 0.2 x10 3/uL) 1.02 H Baso # (Auto) (0.0 - 0.2 x10 3/uL) 0.08 Abs Immat Gran (auto) (0.00 - 0.03 x10 3/uL) 0.06 H Add Manual Diff NO Immature Gran % (0.0 - 2.0 %) 0.6 Nucleated RBC % (0 - 0 %) 0.0 Nucleated RBCs # (Man) (0.0 - 0.1 x10 3/uL) 0.00 Recent Impressions:RADIOLOGY - XR CHEST 1 V 07/27 0703 Report Impression - Status: SIGNED Entered: 07/27/2022 0821 IMPRESSION: Bibasilar opacities with small bilateral pleural effusions. Impression By: Sudhir - Herb Strong M.D. Treatment Prophylaxis Treatment ProphylaxisDrain(s)/tube(s): Drain(s)/tube(s): chest Diagnosis, Assessment PlanConsultants: nephrology Free Text DxA P NotesFree text DxA P notes:NSTEMI, CAD (coronary artery disease), S/P CABG X 5 ON 07/08- STABLE, CARD/CTS SEEN, TX TO SNF ON THURSDAY, EF 30-35% patient presented with NSTEMI and found to hve severe CAD. Cardiac cath shows: Left Main - Distal 70% LAD - Proximal 80% with another 60% and 70% lessions Cir - Proximal 80%,mid 80-90%, Distal 70% and OM 60% RCA - large dominant with proximal 40%, Mid 60%. Echo: ef 30-34%, mod hypokinesis of entire myocardium, grade 1 diastolic dysfunction Patient on ASA, plavix, BB and Statin on amiodarone, Beta-tomas as tolerated for low BP, Acute systolic heart failure - STABLE, NO CHARLY/BB DUE TO LOW BP, ON MIDODRINE PRN, EF 30-35% Echocardiac with estimated LVEF of 30 to 34% with grade 1 diastolic dysfunction-s/p Lasix 20 mg twice daily 07/05 -on metoprolol 12.5 mg bid on hold now, BP low-no ACEI/ spironolactione for CLAUDETTE-Start GDMT prior to discharge-Await [facility] - L[facility] at bedside. CLAUDETTE (acute kidney injury) DUE TO POST-OBS NEPHROPATHY - ON HD MWF, RENAL/UROL SEEN, NEEDS SNF WITH DIALYSIS ACCESS, CONT WATERS, FLOMAX, ABLE BODIED TANKERMAN FROM 7.0 TO 4.3 No prior Hx of renal disease. hx of BPH and treated with Fosamax w/o improvement nd continue to have difficulty urinating. On admission was found to be on acute renal filaure and had received HD twice prior to arrival here (thursday and thursday). 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 BPH (benign prostatic hyperplasia) - ABOVE, ON WATERS Started on Flomax at the previous hospital, will continue with it. Waters catheter in place, continue Waters catheter as per nephrology 07/05 Goiter Hx of Goiter and surgical resection. TSH 3.33, within normal limits. Patient is not on Thyroid medication. RXT LEUKOCYTOSIS - STABLE, NO INFECTION DEBILITY - OT/PT SEEN, SNF TX SOON UTI continue Rocephin for empiric treatment pending results of urine culture No growth for 48 hours DVT prophylaxis: Heparin 5000 units every 8 hoursDiet: Cardiac dietCODE STATUS: Full code Disposition: Status post CABG x5 on 07/09, hemodialysis as per nephrology. Worked with PT in his room, on 2 L oxygen via nasal cannula. PT/OT on board. Await LifeVest and SNF placement 07/22- awaiting SNF. lifevest arranged.07/23 stable, awaiting SNF placement07/24- awaiting SNF07/25 awaiting SNF, discussed with case management07/26 - awaiting SNF07/27 - PERHAPS PM R TO REASSESS and see if home with H/H is now an option since he has been in the hospital for so long, getting PT here. Quality: Gen Med Crit Care VTE ProphylaxisVTE prophylaxis initiated: yes Advanced Care Plan 65 or OlderDiscussed with: patientDiscussion included: living will (none), power of school commissioner (none), code status (full code) at 1408 RPT #:[id number] OF REPORTPRProgress [id number]:06:[id number] Available for patient [id number]:09:15 HCACL 2022-07-27 11:52:00 [id number]:52:00 [facility])Cardiothoracic Surgery ProgREPORT#:[id number] REPORT STATUS: SignedDATE:07/27/22 TIME: 1152 PATIENT: SHERRI ARCE UNIT #: [id number]#: [id number] [address] [birth year] AGE: 81 SEX: M ATTEND: Srinath Kaur AUTHOR: Gianna Hoover * ALL edits or amendments must be made on the electronic/computer document * GeneralPost-op: day 18Status post:07/08/22 CABG x 5 (MISTRY-LAD, SVG-Ladonna, SVG-OM1< SVG-OM3, SVG-PDA) ALEXIS TATUM (RGSV) SubjectiveChief complaint:s/p CABGno complaints Review of SystemsConstitutional:Denies: chills, fever, malaise. Allergy/Immun:Denies: allergic reaction. Respiratory:Denies: SOB. Cardiovascular:Denies: chest pain, palpitations. GI:Denies: abdominal pain, nausea, vomiting. :Denies: dysuria, hematuria. Heme:Denies: bleeding. Neuro:Denies: dizziness, headache, vision change. All systems rev neg: except as marked Objective GeneralVS/I OLast Documented: Result Date Time Pulse Ox 95 [...] scale Measurement Method PATIENT WEIGHT: Weight (lb): 182Weight (oz): 15.74Weight (kg): 83.000 Physical ExamGeneral appearance: alert, awakeWound/incision: Location:sternal Site condition: edges approximated, incision intact, no drainage, no ecchymosis, no erythemaHEENT: anicteric, mucosal membranes moistNeck: supple/no meningismusCardiovascular: normal heart sounds, regular rate rhythmRespiratory: aerating well, symmetric expansion, no distressAbdomen: soft, non-tender, no distentionGenitourinary: foleyExtremities: moves allNeuro/GIFT OFFICER: alert, oriented X 3, normal speech, no motor deficitsPsychiatry: normal affect, normal mood Treatment Prophylaxis Treatment ProphylaxisDrain(s)/tube(s): Drain(s)/tube(s): chest Quality: Trauma Gen Surg Advanced Care Plan 65 or OlderDiscussed with: patientDiscussion included: living will (none), power of school commissioner (none), code status (full code) VTE Prophylaxis - GeneralVTE prophylaxis initiated: yes Diagnosis, Assessment PlanHospital course to date:This is a 81-year-old gentleman who presented to an outside hospital with complaints of chest pains while walking at his home on Thursday. He denies any previous history of coronary artery disease or other [place]. He was seen and evaluated at [facility]. He was found to have a urinary tract infection with urinary retention and acute kidney. He was started on dialysis via a left femoral temporary catheter. He underwent dialysis on Thursday, Thursday. Renal has been consultedDuring his work-up at outside hospital he underwent Left heart catheterization showing severe Left Main 70%. LAD: Proximal diffuse 80% stenosis and then diffuse 60% in the midsegment and on the distal segment, there is focal 70% stenosis. Diagonal branches with luminal irregularities. Left circumflex, codominant circulation with proximal 80%, mid 80 to 90% and then in the OM, there is proximal 60%, distal left circumflex has a 70% stenosis. RCA large and dominant with proximal 40% stenosis, mid 60% stenosis and then diffuse 50% stenosis all the way distally and the PLV and the PDA with luminal irregularities. CV surgery consulted for evaluation for coronary bypass graft. CAROTIDS- No carotid stenosis CT chest complete IMPRESSION: Small bilateral pleural effusions with bibasilar atelectasis. Echo:1. Left ventricle: The cavity size is at the upper limits of normal. Wall thickness is mildly increased. Systolic function is severely reduced. The estimated ejection fraction is 30-34%. Moderate hypokinesis of the entire myocardium. Doppler parameters are consistent with abnormal left ventricular relaxation (grade 1 diastolic dysfunction).2. Pericardium, extracardiac: A small pericardial effusion is identified along the left ventricular free wall, along the right ventricular free wall, and along the right atrial free wall. Assessment/Plan1) CAD Mutlivessel Will obtain echo,carotids. 2) CLAUDETTE Started dialysis on Creatine 7.3 Renal consulted. 3) BPH- Urinary retention. Waters in place Workup for CABG underway. Will get functional assessment with PT. PFT pending Carotid dopplers- No disease Echo PendingDialyiss per Renal. Baseline Cr unknown. 07/04 07/04 Doing well today, alert, up in the chair. Denies chest painEchocardiogram showed LVEF 30 to 34%, mild MR, trivial TRCT chest images reviewedEncourage I-S and mobilizationCreatinine 5.5 from 7.3, good urine output. Renal US showed bilateral severe hydronephrosis. Plan for HD today and tomorrow Will tentatively schedule patient for surgery on Thursday.Patient seen and plan reviewed with Dr Schwarz 07/05 Remains in a stable condition, denies chest pain BUN 53, creatinine 5.4. Plan for hemodialysis today and tomorrow for clearanceHe is also on Lasix 20 mg IV twice daily, urine output 1.1 L overnightWe will calculate risk of surgery with STS scoreEncourage I-S and mobilizationWill tentatively schedule patient for surgery on Thursday.Pt seen and plan reviewed with Dr Schwarz 07/06 BUN 36, creatinine 4.4. Plan for hemodialysis todayAwaiting CABG tomorrowSurgery, risks involved, STS score, benefits, complications and alternatives were explained to the patient. He acknowledged understanding and is willing to proceedN.p.o. after midnightPatient seen and plan reviewed with Dr. Schwarz 07/09/22OUMOU 1CABG x 5 (MISTRY-LAD, SVG-Ladonna, SVG-OM1< SVG-OM3, SVG-PDA), ALAA, EVH (RGSV)Patient hemodynamically unstable, on epi at 4, and vaso .04, decreased uop overnight- 150ccStarted patient on CRRT 2k/3.5Wean epi as tolerated, Cardiac incex 2.8-3labs and chest x-ray reviewed, electrolytes stable, hgb 6.5- transfuse 2 units PRBCOn 4l nasal cannula- encourage incentive spirometer and deep breathingKeep both chest tubes and monitor outputsGlycemic control on insulin dripCardiac dietBowel regimen protocolPain managementSCDs for DVT and PPI for GI prophylaxisPT/OTMonitor patient closely in CVICUPlan of care discussed with Dr. Schwarz 07/10/22POAdeola 2Patient alert, awake, and oriented, no distres notedlabs and CXR reviewed stableBreathing comfortably on 3l nasal cannula- wean as tolerated to melissa O2 sats > 92%Encourage I-S use and deep breathingOn CRRT- able to remove 2.9L overnight- nephrology followingCardiac index 3.1- wean off epi dripKeep chest tubes for now and monitor outputsTransition to sliding scale insulin- cardiac dietTry to get patient out of bed to chair today- ambulate with PT/OTSCDs for DVT prophylaxisKeep patient in CVICU for close monitoring 07/11/22PO 3Patient in stable condition, overnight events noted- decreased urine output 35 ml last night-started on dopamine gtt for renal perfusionCardiac index 3.5- epi currently at 2- will discontinue today, vasopressin at 0.02, added low dose midodrine 2.5 mg TID, repeat echocardiogram.Renal Following- trial LasixPatient has Left femoral temp dialysis cath, Will need tunneled dialysis IJ cathplaced if need dialysis. On 5l nasal cannula- wean off as tolerated, encourage incentive spirometer and deep breathingKeep left pleural chest tube and monitor output- > 200 cc Tolerating diet, bowel regimen protocolPT/OT- patient out of bed to chair today- encourage ambulationDVT prophylaxis with SCDsMonitor patient closely in CVICUPlan discussed with multidisciplinary teamPlan discussed with Dr Schwarz/ Dr Rodríguez 07/12/22PO 5,Patient resting comfortable. Patient with hx of urinary retention- After standing today- voided 1.4 L. Needs Urology consult for retention K 5.4- HD in progress. Dr Plaza following. CT output 20- DC today. Pacers remain in place. 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 Card: Remains in sinus rhythm. Respir: on 7 L NC O2 95%Dispo: Rehab consultedPatient seen and exmained by Dr Rodríguez. Plan discussed with Team 07/13/22 5Patient with no new complaints. Recieved HD yesterday.Requiring less oxygen, now on 3l nasal cannula- continue to wean offCXR reviewed left apical pneumothorax 4cm/30%, Chest tube drained 140 overnight,placed back on suction to clear pneumo, CT drianed 200cc this AM. on suction. Labs reviewed- stable, decreased WBC, hgb stable, CR 3.9Eating welll, +BMUO- 550CC, BP improved on midodrine. Continue PT/OT, ambulation and incentive spirometer useRehab folowing Monitor in ICU todayDisucssed with Dr Schwarz- DC femoral line and Central line today. DC art line. Will re-eval need for dialysis cath Thursday. Consider tunnelled cath if need.Patient seen and examined by Dr Rodríguez. Plan discussed with Care team. 07/14POD 6Patient in stable condition, no distress notedRemains on room air, O2 sats > 92%, encourage I-S use and deep breathingCXR shows moderate left apical pneumothorax unchangedCT remained on suction, no airleak noConsult IR for pigtail chest tube placement this morningCardiac/renal dietLabs reviewed- K 5.1- repeat labs K 4.8Nephrology followingContinue therapy with PT/OTFollow up with urology for waters catheter- Dr Harris consulted.Monitor in CVICUPlan of care discussed with Dr Schwarz and multidisciplinary team 07/15/22POD 7Patient alert, awake, and oriented, no distress, no complaints at this timeBreathing comfortable on room airCXR shows resolved pneumothoraxLP and pigtail chest tube- no air leak noted, minimal output from LP 40 overnightLabs reviewed, K 5.2- corrected, follow up with nephrology to discuss need for dialysisTrend labs this afternoonBowel regimen, +gasFoley catheter discontinued per urology- voiding trial this AMAmbulation and incentive spirometer use encouragedDVT prophylaxis with SCDsKeep in ICU DISP: SNF- Case management Discussed plan of care with multidisciplinary team and Dr. Schwarz 3POD 8Patient doing well, alert, awake, and orientedO2 sats 93% on room air, encourage I-SCXR stable- no pneumo notedLeft pigtail chest tube - no air leak, clamped this morning, repeat CXRPlacement of tunneled dialysis catheter (BioFlo DuraMax 28 cm) yesterdayHD treatment done yesterday evening, plan for HD treatment today per nephrologyPatient failed voiding trial, waters catheter replaced- follow up with urologyEating wellContinue PT/OT- ambulationTransfer to CV 1 intermediate care unitDischarge planning for SNF- CM following and to set up dialysis chairPatient seen with Dr. Schwarz and discussed plan of care with multidisciplinary team. 07/17/22Patient in stable condition, no complaintsLabs and CXR reviewed- stableLeft pigtail chest tube discontinued yesterday- no pneumo notedRemains on room air, no distress- I-S encouragedCardiac diet, +BMKeep waters per urology f/u outpt, continue flomaxHD per nephrology- CM to setup outpt dialysis chairAwaiting bed availability on CV 1Discharge planning- SNFPlan of care discussed with multidisciplinary team and Dr. Schwarz. 07/18 Patient in stable condition, no complaintsRemains on room air, no distress- I-S encouragedEpicardial pacing wires discontinued. Limited echo to rule out pericardial effusionKeep waters per urology f/u outpt, continue flomaxHD per nephrology- CM to setup outpt dialysis chairDischarge planning- SNFPlan of care discussed with multidisciplinary team and Dr. Schwarz. 07/19 No new eventsEchocardiogram done, report pendingHD per nephrology- to setup outpt dialysis chairWaiting insurance approval for shelter facilityPatient seen and plan reviewed with Dr. Schwarz 07/20 Remains in a stable condition.Echocardiogram showed LVEF 30 to 34%, trivial pericardial effusionHD schedule per nephrologyAwaiting insurance approval for SNF 07/21 No complaints todayHD schedule per nephrologyAwaiting insurance approval for SNFEncourage I-S and mobilization 07/22 Remains in stable conditionContinue current management.Aspirin, Plavix, statin. Did not tolerate metoprolol, on midodrine 5 mg 3 timesdailyWBCs trending downAwaiting insurance approval for SNF 07/23 No new events Hemodialysis this mornning Hemodynamically stable, sinus rhythm 80sAwaiting placement 07/24 Doing well today No changes in sternal incision Sternal precautions for 6 weeks Awaiting placement 07/25/22Doing well. Denies CPDialysis today. Sternum clean dryLabs reveiwed.Life vest ordered. EF 30%- 35%Awaiting placement 07/26/22Doing well, CT sutures removed. Respir: on Room air 98%Cardiac: remains sinus rhtyhmLife vest at bedside. Awaiting transfer to facility.Labs reviewed. CXR reviewed- stable. encouraghe IS- Deep breathingOut of bed with PT 07/27/22Doing well. No complaints. Wound clean, Dry. Respir: 99% on room air. Life vest at bedside, Contnue dialysis- Awaiting transfer to [facility]. Stable. Patient seen and examined by Dr Schwarz Consultants: nephrology at 1154 at 1000 RPT #:[id number] OF REPORTPRProgress [id number]:52:[id number] Available for patient [id number]:55:06 HCACL 2022-07-27 07:04:00 [id number]:04:00 [facility] ([facility])Rehab Progress NoteREPORT#:[id number] REPORT STATUS: SignedDATE:07/27/22 TIME: 0704 PATIENT: SHERRI ARCE UNIT #: [id number]#: [id number] [address] [birth year] AGE: 81 SEX: M ATTEND: Jesus Larson MDADM AUTHOR: Magdaleno Washburn * ALL edits or amendments must be made on the electronic/computer document * SubjectiveChief complaint:Rehab follow-upDoing very wellSitting up in chair eating breakfastDenies pain or sobPleasantDenies NAIK/N/V/D/CP14 systems reviewed and neg. except that above. Objective GeneralVS:Vital Signs: Date Time Temp Pulse Resp B/P B/P Pulse O2 O2 Flow FiO2 Mean Ox Delivery Rate 07/27 0545 [...] 97 Room air PATIENT WEIGHT: Weight (lb): 182Weight (oz): 15.74Weight (kg): 83.000 Medications:Active Meds + DC'd Last 24 HrsMidodrine (PROAMATINE) 5 MG 0900,1300,1700 PRN PO Sodium Chloride (SODIUM CHLORIDE) 10 ML ASDIR IV Amiodarone HCl (CORDARONE) 200 MG BID PO Ipratropium [place] (ATROVENT) 500 MCG RTQ2H PRN PRN INH Lactulose (LACTULOSE) 20 GM DAILY PRN PRN PO Cyanocobalamin (Vitamin B-12 500 mcg tab) 500 MCG DAILY PO Ferrous Sulfate (FERROUS SULFATE) 325 [...] (Senna Lax 8.6 MG TABLET) 17.2 MG BEDTIME PO Ipratropium [place] (ATROVENT) 500 MCG RTQ4H INH Acetaminophen (TYLENOL) 650 MG Q4H PRN PRN PO Acetaminophen (TYLENOL) 650 MG Q4H PRN PRN RECTAL Dextrose/Water (DEXTROSE 10% IN WATER) 125 ML ASDIR PRN IV (CKD) Dextrose/Water (DEXTROSE 10% IN WATER) 250 ML ASDIR PRN IV (CKD) Glucagon (GLUCAGON) 1 MG ASDIR PRN IM Magnesium Sulfate (MAGNESIUM SULFATE 4GM/SWFI 100ML) 100 ML ASDIR PRN IV Magnesium Sulfate (MAGNESIUM SULFATE 2GM/SWFI 50ML) 50 ML ASDIR PRN IV Magnesium Sulfate/Dextrose (MAGNESIUM SULFATE 1GM/D5W 100ML) 100 ML ASDIR PRN IV Ondansetron HCl (ZOFRAN) 4 MG Q6H PRN PRN IV Albumin Human (ALBUMINAR-25%) 12.5 GM ASDIR PRN IV Heparin Sodium (Porcine) (HEPARIN SODIUM) 3,000 UNIT ASDIR PRN DIALYSIS Lidocaine HCl (LIDOCAINE HCL/PF) 0.5 ML ASDIR PRN I-DERMAL (CKD) Mannitol (Mannitol 20%) 12.5 GM ASDIR PRN IV Sodium Chloride (SODIUM CHLORIDE 0.9%) 2,000 ML ASDIR PRN IV Tamsulosin HCl (Flomax 0.4 mg) 0.4 MG BEDTIME PO Functional ProgressFunctional progress:The data set between the solid lines has been imported from multidisciplinary team documentation. FUNCTIONAL ACTIVITY ADMISSION STATUS INTERIM STATUS Toilet hygiene Toilet transfer Eating Shower/bathing Dressing upper body Dressing lower body Transfer to/from bed to chair Wheel 50ft w/ 2 turns Wheel 150 ft Walk 50 ft w/ 2 turns Walk 150 ft Four steps Physical ExamGeneral appearance: alert, awakePsych: alert, oriented x 3HEENT: anicteric, sclera clearNeck: supple, no JVDCardiovascular: regular rate rhythm, S1/Z7Dkixuvkmupi: aerating well, clear bilaterallyAbdomen: bowel sounds present, non-distended, softSkin: intact, no rashMusculoskeletal - general: Musculoskeletal - general: joints normal, normal muscle mass, normal toneNeuro/GIFT OFFICER: alert, oriented X 3, CNII-XII intact ResultsFindings/Data:Laboratory Tests 07/26 07/26 07/25 07/25 0400 0400 [...] - 32.0 %) 10.4 L 8.9 L Starke % (Auto) (4.8 - 9.0 %) 7.5 8.6 Eos % (Auto) (0.3 - 3.7 %) 10.7 H 11.4 H Baso % (Auto) (0.0 - 2.0 %) 0.7 0.9 Neut # (Auto) (2.0 - 7.6 x10 3/uL) 7.52 7.38 Lymph # (Auto) (1.0 - 3.8 x10 3/uL) 1.12 0.95 L Starke # (Auto) (0.1 - 0.8 x10 3/uL) 0.81 H 0.91 H Eos # (Auto) (0.0 - 0.2 x10 3/uL) 1.15 H 1.21 H Baso # (Auto) (0.0 - 0.2 x10 3/uL) 0.08 0.10 Abs Immat Gran (auto) (0.00 - 0.03 x10 3/uL) 0.07 H 0.09 H Add Manual Diff NO NO Immature Gran % (0.0 - 2.0 %) 0.7 0.8 Nucleated RBC % (0 - 0 %) 0.0 0.0 Nucleated RBCs # (Man) (0.0 - 0.1 x10 3/uL) 0.00 0.00 Recent Impressions:RADIOLOGY - XR CHEST 1 V 07/26 0645 Report Impression - Status: SIGNED Entered: 07/26/2022 1450 IMPRESSION: Bibasilar consolidation and left perihilar opacity with bilateral pleural effusions similar to prior study. Impression By: [email or web address] - Chaim Alonzo M.D. Diagnosis, Assessment PlanFree Text A P:Non-STEMIMultivessel CADS/p CABG o8Lfscazht deconditioningImpaired mobility and gaitPostoperative anemiaDyslipidemiaHypertensionAKIAcute systolic heart failureHemodynamic issues postopLeukocytosis trending downPleural effusion and atelectasis Plan:Continue PT/OTOut of bed to chairWork on strength, bed mobility, transfers, gaitSternal precautionIncrease enduranceFall precautionsMonitor p.o. intake and nutritionStrict decubitus precautionsMonitor anemia. Persistent left pneumothorax. IR guided pigtail place. CXR shows expansion of the lung Urology consulted -Pt on FlomaxNephrology managing renal issues and elevated K+Utilize IS to reduce atelectasisAdvance therapies as toleratedPt lives alone and has 5 to 6 stairs to enter houseSNF order has been placed. Will require insurance approval for SNF, dialysis clinic acceptance, approval for LifeVest prior to discharge Total time was 33 minutes > 50% with patient performing physical examination, discussing plan of care, goals, therapies, progress, medications, labs, SNF. All questions answeredRehab attestation:. at 0446 RPT #:[id number] OF REPORTPRProgress [id number]:04:[id number] Available for patient [id number]:46:43 HCACL 2022-07-26 13:36:00 [id number]:36:00 [facility] ([facility])Cardiothoracic Surgery ProgREPORT#:[id number] REPORT STATUS: SignedDATE:07/26/22 TIME: 1335 PATIENT: SHERRI ARCE UNIT #: [id number]#: [id number] [address] [birth year] AGE: 81 SEX: M ATTEND: Srinath Kaur MDA AUTHOR: Gianna Hoover * ALL edits or amendments must be made on the electronic/computer document * GeneralPost-op: day 17Status post:07/08/22 CABG x 5 (MISTRY-LAD, SVG-Ladonna, SVG-OM1< SVG-OM3, SVG-PDA) ALAA JACQUIH (RGSV) SubjectiveChief complaint:s/p CABGno complaints Review of SystemsConstitutional:Denies: chills, fever, malaise. Allergy/Immun:Denies: allergic reaction. Respiratory:Denies: SOB. Cardiovascular:Denies: chest pain, palpitations. GI:Denies: abdominal pain, nausea, vomiting. :Denies: dysuria, hematuria. Heme:Denies: bleeding. Neuro:Denies: dizziness, headache, vision change. All systems rev neg: except as marked Objective GeneralVS/I OLast Documented: Result Date Time Pulse Ox 99 [...] scale Measurement Method PATIENT WEIGHT: Weight (lb): 183Weight (oz): 13.85Weight (kg): 83.400 Physical ExamGeneral appearance: alert, awake, orientedWound/incision: Location:sternal Site condition: edges approximated, incision intact, no drainage, no ecchymosis, no erythemaHEENT: anicteric, mucosal membranes moistNeck: supple/no meningismusCardiovascular: normal heart sounds, regular rate rhythmRespiratory: aerating well, symmetric expansion, no distressAbdomen: soft, non-tender, no distentionGenitourinary: foleyExtremities: moves allNeuro/GIFT OFFICER: alert, oriented X 3, normal speech, no motor deficitsPsychiatry: normal affect, normal mood Treatment Prophylaxis Treatment ProphylaxisDrain(s)/tube(s): Drain(s)/tube(s): chest Quality: Trauma Gen Surg Advanced Care Plan 65 or OlderDiscussed with: patientDiscussion included: living will (none), power of school commissioner (none), code status (full code) VTE Prophylaxis - GeneralVTE prophylaxis initiated: yes Diagnosis, Assessment PlanHospital course to date:This is a 81-year-old gentleman who presented to an outside hospital with complaints of chest pains while walking at his home on Thursday. He denies any previous history of coronary artery disease or other [place]. He was seen and evaluated at [facility]. He was found to have a urinary tract infection with urinary retention and acute kidney. He was started on dialysis via a left femoral temporary catheter. He underwent dialysis on Thursday, Thursday. Renal has been consultedDuring his work-up at outside hospital he underwent Left heart catheterization showing severe Left Main 70%. LAD: Proximal diffuse 80% stenosis and then diffuse 60% in the midsegment and on the distal segment, there is focal 70% stenosis. Diagonal branches with luminal irregularities. Left circumflex, codominant circulation with proximal 80%, mid 80 to 90% and then in the OM, there is proximal 60%, distal left circumflex has a 70% stenosis. RCA large and dominant with proximal 40% stenosis, mid 60% stenosis and then diffuse 50% stenosis all the way distally and the PLV and the PDA with luminal irregularities. CV surgery consulted for evaluation for coronary bypass graft. CAROTIDS- No carotid stenosis CT chest complete IMPRESSION: Small bilateral pleural effusions with bibasilar atelectasis. Echo:1. Left ventricle: The cavity size is at the upper limits of normal. Wall thickness is mildly increased. Systolic function is severely reduced. The estimated ejection fraction is 30-34%. Moderate hypokinesis of the entire myocardium. Doppler parameters are consistent with abnormal left ventricular relaxation (grade 1 diastolic dysfunction).2. Pericardium, extracardiac: A small pericardial effusion is identified along the left ventricular free wall, along the right ventricular free wall, and along the right atrial free wall. Assessment/Plan1) CAD Mutlivessel Will obtain echo,carotids. 2) CLAUDETTE Started dialysis on Creatine 7.3 Renal consulted. 3) BPH- Urinary retention. Waters in place Workup for CABG underway. Will get functional assessment with PT. PFT pending Carotid dopplers- No disease Echo PendingDialyiss per Renal. Baseline Cr unknown. 07/04 07/04 Doing well today, alert, up in the chair. Denies chest painEchocardiogram showed LVEF 30 to 34%, mild MR, trivial TRCT chest images reviewedEncourage I-S and mobilizationCreatinine 5.5 from 7.3, good urine output. Renal US showed bilateral severe hydronephrosis. Plan for HD today and tomorrow Will tentatively schedule patient for surgery on Thursday.Patient seen and plan reviewed with Dr Schwarz 07/05 Remains in a stable condition, denies chest pain BUN 53, creatinine 5.4. Plan for hemodialysis today and tomorrow for clearanceHe is also on Lasix 20 mg IV twice daily, urine output 1.1 L overnightWe will calculate risk of surgery with STS scoreEncourage I-S and mobilizationWill tentatively schedule patient for surgery on Thursday.Pt seen and plan reviewed with Dr Schwarz 07/06 BUN 36, creatinine 4.4. Plan for hemodialysis todayAwaiting CABG tomorrowSurgery, risks involved, STS score, benefits, complications and alternatives were explained to the patient. He acknowledged understanding and is willing to proceedN.p.o. after midnightPatient seen and plan reviewed with Dr. Schwarz 07/09/22POD 1CABG x 5 (MISTRY-LAD, SVG-Ladonna, SVG-OM1< SVG-OM3, SVG-PDA), ALAA, EVH (RGSV)Patient hemodynamically unstable, on epi at 4, and vaso .04, decreased uop overnight- 150ccStarted patient on CRRT 2k/3.5Wean epi as tolerated, Cardiac incex 2.8-3labs and chest x-ray reviewed, electrolytes stable, hgb 6.5- transfuse 2 units PRBCOn 4l nasal cannula- encourage incentive spirometer and deep breathingKeep both chest tubes and monitor outputsGlycemic control on insulin dripCardiac dietBowel regimen protocolPain managementSCDs for DVT and PPI for GI prophylaxisPT/OTMonitor patient closely in CVICUPlan of care discussed with Dr. Schwarz 07/10/22PO 2Patient alert, awake, and oriented, no distres notedlabs and CXR reviewed stableBreathing comfortably on 3l nasal cannula- wean as tolerated to melissa O2 sats > 92%Encourage I-S use and deep breathingOn CRRT- able to remove 2.9L overnight- nephrology followingCardiac index 3.1- wean off epi dripKeep chest tubes for now and monitor outputsTransition to sliding scale insulin- cardiac dietTry to get patient out of bed to chair today- ambulate with PT/OTSCDs for DVT prophylaxisKeep patient in CVICU for close monitoring 07/11/22PO 3Patient in stable condition, overnight events noted- decreased urine output 35 ml last night-started on dopamine gtt for renal perfusionCardiac index 3.5- epi currently at 2- will discontinue today, vasopressin at 0.02, added low dose midodrine 2.5 mg TID, repeat echocardiogram.Renal Following- trial LasixPatient has Left femoral temp dialysis cath, Will need tunneled dialysis IJ cathplaced if need dialysis. On 5l nasal cannula- wean off as tolerated, encourage incentive spirometer and deep breathingKeep left pleural chest tube and monitor output- > 200 cc Tolerating diet, bowel regimen protocolPT/OT- patient out of bed to chair today- encourage ambulationDVT prophylaxis with SCDsMonitor patient closely in CVICUPlan discussed with multidisciplinary teamPlan discussed with Dr Schwarz/ Dr Rodríguez 07/12/22POD 5,Patient resting comfortable. Patient with hx of urinary retention- After standing today- voided 1.4 L. Needs Urology consult for retention K 5.4- HD in progress. Dr Plaza following. CT output 20- DC today. Pacers remain in place. 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 Card: Remains in sinus rhythm. Respir: on 7 L NC O2 95%Dispo: Rehab consultedPatient seen and exmained by Dr Rodríguez. Plan discussed with Team 07/13/22 5Patient with no new complaints. Recieved HD yesterday.Requiring less oxygen, now on 3l nasal cannula- continue to wean offCXR reviewed left apical pneumothorax 4cm/30%, Chest tube drained 140 overnight,placed back on suction to clear pneumo, CT drianed 200cc this AM. on suction. Labs reviewed- stable, decreased WBC, hgb stable, CR 3.9Eating welll, +BMUO- 550CC, BP improved on midodrine. Continue PT/OT, ambulation and incentive spirometer useRehab folowing Monitor in ICU todayDisucssed with Dr Schwarz- DC femoral line and Central line today. DC art line. Will re-eval need for dialysis cath Thursday. Consider tunnelled cath if need.Patient seen and examined by Dr Rodríguez. Plan discussed with Care team. 07/14PO 6Patient in stable condition, no distress notedRemains on room air, O2 sats > 92%, encourage I-S use and deep breathingCXR shows moderate left apical pneumothorax unchangedCT remained on suction, no airleak noConsult IR for pigtail chest tube placement this morningCardiac/renal dietLabs reviewed- K 5.1- repeat labs K 4.8Nephrology followingContinue therapy with PT/OTFollow up with urology for waters catheter- Dr Harris consulted.Monitor in CVICUPlan of care discussed with Dr Schwarz and multidisciplinary team 07/15/22PO 7Patient alert, awake, and oriented, no distress, no complaints at this timeBreathing comfortable on room airCXR shows resolved pneumothoraxLP and pigtail chest tube- no air leak noted, minimal output from LP 40 overnightLabs reviewed, K 5.2- corrected, follow up with nephrology to discuss need for dialysisTrend labs this afternoonBowel regimen, +gasFoley catheter discontinued per urology- voiding trial this AMAmbulation and incentive spirometer use encouragedDVT prophylaxis with SCDsKeep in ICU DISP: SNF- Case management Discussed plan of care with multidisciplinary team and Dr. Schwarz 3POD 8Patient doing well, alert, awake, and orientedO2 sats 93% on room air, encourage I-SCXR stable- no pneumo notedLeft pigtail chest tube - no air leak, clamped this morning, repeat CXRPlacement of tunneled dialysis catheter (BioFlo DuraMax 28 cm) yesterdayHD treatment done yesterday evening, plan for HD treatment today per nephrologyPatient failed voiding trial, waters catheter replaced- follow up with urologyEating wellContinue PT/OT- ambulationTransfer to CV 1 intermediate care unitDischarge planning for SNF- CM following and to set up dialysis chairPatient seen with Dr. Schwarz and discussed plan of care with multidisciplinary team. 07/17/22Patient in stable condition, no complaintsLabs and CXR reviewed- stableLeft pigtail chest tube discontinued yesterday- no pneumo notedRemains on room air, no distress- I-S encouragedCardiac diet, +BMKeep waters per urology f/u outpt, continue flomaxHD per nephrology- CM to setup outpt dialysis chairAwaiting bed availability on CV 1Discharge planning- SNFPlan of care discussed with multidisciplinary team and Dr. Schwarz. 07/18 Patient in stable condition, no complaintsRemains on room air, no distress- I-S encouragedEpicardial pacing wires discontinued. Limited echo to rule out pericardial effusionKeep waters per urology f/u outpt, continue flomaxHD per nephrology- CM to setup outpt dialysis chairDischarge planning- SNFPlan of care discussed with multidisciplinary team and Dr. Schwarz. 07/19 No new eventsEchocardiogram done, report pendingHD per nephrology- CM to setup outpt dialysis chairWaiting insurance approval for shelter facilityPatient seen and plan reviewed with Dr. Schwarz 07/20 Remains in a stable condition.Echocardiogram showed LVEF 30 to 34%, trivial pericardial effusionHD schedule per nephrologyAwaiting insurance approval for SNF 07/21 No complaints todayHD schedule per nephrologyAwaiting insurance approval for SNFEncourage I-S and mobilization 07/22 Remains in stable conditionContinue current management.Aspirin, Plavix, statin. Did not tolerate metoprolol, on midodrine 5 mg 3 timesdailyWBCs trending downAwaiting insurance approval for SNF 07/23 No new events Hemodialysis this mornning Hemodynamically stable, sinus rhythm 80sAwaiting placement 07/24 Doing well today No changes in sternal incision Sternal precautions for 6 weeks Awaiting placement 07/25/22Doing well. Denies CPDialysis today. Sternum clean dryLabs reveiwed.Life vest ordered. EF 30%- 35%Awaiting placement 07/26/22Doing well, CT sutures removed. Respir: on Room air 98%Cardiac: remains sinus rhtyhmLife vest at bedside. Awaiting transfer to facility.Labs reviewed. CXR reviewed- stable. encouraghe IS- Deep breathingOut of bed with PT Consultants: nephrology at 1338 at 1000 RPT #:[id number] OF REPORTPRProgress [id number]:36:[id number] Available for patient [id number]:38:42 [facility]ACL 2022-07-26 13:20:00 [id number]:20:00 [facility] ([facility])Hospitalist Progress NoteREPORT#:[id number] REPORT STATUS: SignedDATE:07/26/22 TIME: 1320 PATIENT: SHERRI ARCE UNIT #: [id number]#: [id number] ROOM/BED: 3354-1DOB: [birth year] AGE: 81 SEX: M ATTEND: Jesus Larson AUTHOR: Jesus Larson MD * ALL edits or amendments must be made on the electronic/computer document * SubjectiveChief complaint:no cp. no sob. Objective GeneralVS/I O:Vital Signs: Date Time Temp Pulse Resp B/P B/P Pulse O2 O2 Flow FiO2 Mean Ox Delivery Rate 07/26 1224 [...] scale Measurement Method PATIENT WEIGHT: Weight (lb): 183Weight (oz): 13.85Weight (kg): 83.400 Physical ExamGeneral appearance: alert, awakeHead/Eyes: atraumatic, EOMI, normal conjunctiva/sclera, normocephalic, PERRLAENT: moist mucosal membranesNeck: no JVDCardiovascular: normal heart sounds, regular rate rhythmRespiratory: aerating well, clear to auscultation, symmetric expansion, no distressAbdomen: non-tender, normal bowel sounds, soft, no distention, no guarding, no reboundGenitourinary: urinary catheterExtremities: no edemaMusculoskeletal: normal inspectionNeuro/GIFT OFFICER: normal speech, no motor deficits, no sensory deficitsSkin: intact, normal color, no rashPsychiatry: normal affect ResultsRadiology data:Laboratory Tests 07/26/22 0400:[Embedded Image Not Available] 07/25/22 0446:[Embedded Image Not Available] Current Medications Sig/Earl Start time LastMedication Dose Route Stop Time Status AdminMidodrine 5 MG 0900,1300,1700 PRN 07/17 2100 AC 07/24 PO 08/16 205 1004Sodium Chloride 10 ML ASDIR 07/17 1030 AC IV 08/16 1029Amiodarone HCl 200 MG BID 07/16 0900 AC 07/26 PO 08/15 0859 0904Ipratropium [place] 500 MCG RTQ2H PRN PRN 07/11 1821 AC 07/10 INH 08/10 1820 1302Lactulose 20 GM DAILY PRN PRN 07/11 1245 AC 07/11 PO 08/10 1244 1411Cyanocobalamin 500 MCG DAILY 07/11 0900 AC 07/26 PO 08/10 0859 0904Ferrous Sulfate 325 MG DAILY 07/11 09 AC 07/26 PO 08/10 0859 0904Bisacodyl 10 MG ONCE PRN 07/10 1200 AC 07/11 RECTAL 08/09 1159 0928Atorvastatin Calcium 40 MG 2100 07/09 2100 AC 07/25 PO 08/08 2058 2006Clopidogrel Bisulfate 75 MG DAILY 07/09 0900 AC 07/26 PO 08/08 0859 0904Polyethylene Glycol 17 GM DAILY 07/09 0900 AC 07/24 PO 08/08 0859 1008Pantoprazole 40 MG DAILY@0600 07/09 0600 AC 07/26 PO 08/08 0559 0622Aspirin 81 MG DAILY 07/09 0020 AC 07/26 PO 08/08 0019 0904Docusate Sodium 100 MG BID 07/08 2100 AC 07/26 PO 08/07 2058 0904Sennosides 17.2 MG BEDTIME 07/08 2100 AC 07/24 PO 08/07 205 2048Ipratropium [place] 500 MCG RTQ4H 07/08 1900 AC 07/26 INH 08/07 1859 1141Acetaminophen 650 MG Q4H PRN PRN 07/08 1830 AC 07/24 PO 08/07 1829 1005Acetaminophen 650 MG Q4H PRN PRN 07/08 1830 AC RECTAL 08/07 1829Dextrose/Water 125 ML ASDIR PRN 07/08 1830 CKD IV 08/07 1829Dextrose/Water 250 ML ASDIR PRN 07/08 1830 CKD IV 08/07 1829Glucagon 1 MG ASDIR PRN 07/08 183 AC IM 08/07 1829Magnesium Sulfate 100 ML ASDIR PRN 07/08 183 AC IV 08/07 1829Magnesium Sulfate 50 ML ASDIR PRN 07/08 183 AC 07/26 IV 08/07 1829 0904Magnesium Sulfate/ 100 ML ASDIR PRN 07/08 1830 AC 07/16Dextrose IV 08/07 1829 0650Ondansetron HCl 4 MG Q6H PRN PRN 07/08 183 AC IV 08/07 1829Albumin Human 12.5 GM ASDIR PRN 07/03 1200 AC 07/25 IV 08/03 1155 0915Heparin Sodium 3,000 UNIT ASDIR PRN 07/03 1200 AC 07/25 (Porcine) DIALYSIS 08/02 1159 1231Lidocaine HCl 0.5 ML ASDIR PRN 07/03 1200 CKD I-DERMAL 08/03 1155Mannitol 12.5 GM ASDIR PRN 07/03 1200 AC IV 08/03 1155Sodium Chloride 2,000 ML ASDIR PRN 07/03 1200 AC 07/25 IV 08/03 1155 1047Tamsulosin HCl 0.4 MG BEDTIME 07/02 2144 AC 07/25 PO 08/01 Laboratory Tests: 07/26 07/26 0400 [...] (Auto) (14.0 - 32.0 %) 10.4 L Starke % (Auto) (4.8 - 9.0 %) 7.5 Eos % (Auto) (0.3 - 3.7 %) 10.7 H Baso % (Auto) (0.0 - 2.0 %) 0.7 Neut # (Auto) (2.0 - 7.6 x10 3/uL) 7.52 Lymph # (Auto) (1.0 - 3.8 x10 3/uL) 1.12 Starke # (Auto) (0.1 - 0.8 x10 3/uL) 0.81 H Eos # (Auto) (0.0 - 0.2 x10 3/uL) 1.15 H Baso # (Auto) (0.0 - 0.2 x10 3/uL) 0.08 Abs Immat Gran (auto) (0.00 - 0.03 x10 3/uL) 0.07 H Add Manual Diff NO Immature Gran % (0.0 - 2.0 %) 0.7 Nucleated RBC % (0 - 0 %) 0.0 Nucleated RBCs # (Man) (0.0 - 0.1 x10 3/uL) 0.00 Treatment Prophylaxis Treatment ProphylaxisDrain(s)/tube(s): Drain(s)/tube(s): chest Diagnosis, Assessment PlanConsultants: nephrology Free Text DxA P NotesFree text DxA P notes:NSTEMI, CAD (coronary artery disease), S/P CABG X 5 ON 07/08- STABLE, CARD/CTS SEEN, TX TO SNF ON THURSDAY, EF 30-35% patient presented with NSTEMI and found to hve severe CAD. Cardiac cath shows: Left Main - Distal 70% LAD - Proximal 80% with another 60% and 70% lessions Cir - Proximal 80%,mid 80-90%, Distal 70% and OM 60% RCA - large dominant with proximal 40%, Mid 60%. Echo: ef 30-34%, mod hypokinesis of entire myocardium, grade 1 diastolic dysfunction Patient on ASA, plavix, BB and Statin on amiodarone, Beta-tomas as tolerated for low BP, Acute systolic heart failure - STABLE, NO CHARLY/BB DUE TO LOW BP, ON MIDODRINE PRN, EF 30-35% Echocardiac with estimated LVEF of 30 to 34% with grade 1 diastolic dysfunction-s/p Lasix 20 mg twice daily 07/05 -on metoprolol 12.5 mg bid on hold now, BP low-no ACEI/ spironolactione for CLAUDETTE-Start GDMT prior to discharge-Await [facility] - L[facility]EST at bedside. CLAUDETTE (acute kidney injury) DUE TO POST-OBS NEPHROPATHY - ON HD MWF, RENAL/UROL SEEN, NEEDS SNF WITH DIALYSIS ACCESS, CONT WATERS, FLOMAX, ABLE BODIED TANKERMAN FROM 7.0 TO 4.3 No prior Hx of renal disease. hx of BPH and treated with Fosamax w/o improvement nd continue to have difficulty urinating. On admission was found to be on acute renal filaure and had received HD twice prior to arrival here (thursday and thursday). 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 BPH (benign prostatic hyperplasia) - ABOVE, ON WATERS Started on Flomax at the previous hospital, will continue with it. Waters catheter in place, continue Waters catheter as per nephrology 07/05 Goiter Hx of Goiter and surgical resection. TSH 3.33, within normal limits. Patient is not on Thyroid medication. RXT LEUKOCYTOSIS - STABLE, NO INFECTION DEBILITY - OT/PT SEEN, SNF TX SOON UTI continue Rocephin for empiric treatment pending results of urine culture No growth for 48 hours DVT prophylaxis: Heparin 5000 units every 8 hoursDiet: Cardiac dietCODE STATUS: Full code Disposition: Status post CABG x5 on 07/09, hemodialysis as per nephrology. Worked with PT in his room, on 2 L oxygen via nasal cannula. PT/OT on board. Await [facility]Vest and SNF placement 07/22- awaiting SNF. lifevest arranged.07/23 stable, awaiting SNF placement07/24- awaiting SNF07/25 awaiting SNF, discussed with case management07/26 - awaiting SNF Quality: Gen Med Crit Care VTE ProphylaxisVTE prophylaxis initiated: yes Advanced Care Plan 65 or OlderDiscussed with: patientDiscussion included: living will (none), power of school commissioner (none), code status (full code) at 1328 RPT #:[id number] OF REPORTPRProgress [id number]:20:[id number] Available for patient [id number]:28:41 [facility]ACL 2022-07-26 06:56:00 [id number]:56:00 [facility] ([facility])Rehab Progress NoteREPORT#:[id number] REPORT STATUS: SignedDATE:07/26/22 TIME: 0656 PATIENT: SHERRI ARCE UNIT #: [id number]#: [id number] [address] [birth year] AGE: 81 SEX: M ATTEND: Jesus Larson [facility] AUTHOR: Magdaleno Washburn * ALL edits or amendments must be made on the electronic/computer document * SubjectiveChief complaint:Rehab follow-upDoing very wellDenies pain or sobPleasantDenies NAIK/N/V/D/CP14 systems reviewed and neg. except that above. Objective GeneralVS:Vital Signs: Date Time Temp Pulse Resp B/P [...] 0800 Room air PATIENT WEIGHT: Weight (lb): 183Weight (oz): 13.85Weight (kg): 83.400 Medications:Active Meds + DC'd Last 24 HrsMidodrine (PROAMATINE) 5 MG 0900,1300,1700 PRN PO Sodium Chloride (SODIUM CHLORIDE) 10 ML ASDIR IV Amiodarone HCl (CORDARONE) 200 MG BID PO Ipratropium [place] (ATROVENT) 500 MCG RTQ2H PRN PRN INH Lactulose (LACTULOSE) 20 GM DAILY PRN PRN PO Cyanocobalamin (Vitamin B-12 500 mcg tab) 500 MCG DAILY PO Ferrous Sulfate (FERROUS SULFATE) 325 [...] (Senna Lax 8.6 MG TABLET) 17.2 MG BEDTIME PO Ipratropium [place] (ATROVENT) 500 MCG RTQ4H INH Acetaminophen (TYLENOL) 650 MG Q4H PRN PRN PO Acetaminophen (TYLENOL) 650 MG Q4H PRN PRN RECTAL Dextrose/Water (DEXTROSE 10% IN WATER) 125 ML ASDIR PRN IV (CKD) Dextrose/Water (DEXTROSE 10% IN WATER) 250 ML ASDIR PRN IV (CKD) Glucagon (GLUCAGON) 1 MG ASDIR PRN IM Magnesium Sulfate (MAGNESIUM SULFATE 4GM/SWFI 100ML) 100 ML ASDIR PRN IV Magnesium Sulfate (MAGNESIUM SULFATE 2GM/SWFI 50ML) 50 ML ASDIR PRN IV Magnesium Sulfate/Dextrose (MAGNESIUM SULFATE 1GM/D5W 100ML) 100 ML ASDIR PRN IV Ondansetron HCl (ZOFRAN) 4 MG Q6H PRN PRN IV Albumin Human (ALBUMINAR-25%) 12.5 GM ASDIR PRN IV Heparin Sodium (Porcine) (HEPARIN SODIUM) 3,000 UNIT ASDIR PRN DIALYSIS Lidocaine HCl (LIDOCAINE HCL/PF) 0.5 ML ASDIR PRN I-DERMAL (CKD) Mannitol (Mannitol 20%) 12.5 GM ASDIR PRN IV Sodium Chloride (SODIUM CHLORIDE 0.9%) 2,000 ML ASDIR PRN IV Tamsulosin HCl (Flomax 0.4 mg) 0.4 MG BEDTIME PO Functional ProgressFunctional progress:Weightbearing: STERNAL Ambulation Distance: 500 FT Progression: Forward [...] of Care: Yes PT charges: Gait Training 00894 Gait Cmt: PT PERFORMING AMB NO AD 500 FT SPV TOLERATING WELL, SITTING AFTERWARD D/T FATIGUE. PT THEN ABLE TO GO UP/DOWN 12 STEPS WITH LEFT RAIL SBA. PT RETURNED TO ROOM RN AWARE PT SIGNING OFF AT THIS TIME, pt MEETING ALL GOALS BEING MOD I WITH NO AD WITH 500 FT AMB, MOD I WITH BED MOBILITY AND TRANSFERS If this is the patient's last treatment, this entry serves as the discharge summary: Y Start Time: 1145 Stop Time: 1214 Treatment Time: (minutes) 0:29 Completed by: Rory Aiken . BED MOBILITY: Yes Rolling Right/Left: Modified [place] Supine to Sit: Modified [place] Sit to Supine: Modified [place] TRANSFERS: Yes Bed to/from chair: Modified [place] Sit to/from stand: Modified [place] Physical ExamGeneral appearance: alert, awakePsych: alert, oriented x 3HEENT: anicteric, sclera clearNeck: supple, no JVDCardiovascular: regular rate rhythm, S1/K5Egoyozkmhmk: aerating well, clear bilaterallyAbdomen: bowel sounds present, non-distended, softSkin: intact, no rashMusculoskeletal - general: Musculoskeletal - general: joints normal, normal muscle mass, normal toneNeuro/GIFT OFFICER: alert, oriented X 3, CNII-XII intact ResultsFindings/Data:Laboratory Tests: 07/26 07/26 0400 0400 Chemistry Sodium [...] (Auto) (14.0 - 32.0 %) 10.4 L Starke % (Auto) (4.8 - 9.0 %) 7.5 Eos % (Auto) (0.3 - 3.7 %) 10.7 H Baso % (Auto) (0.0 - 2.0 %) 0.7 Neut # (Auto) (2.0 - 7.6 x10 3/uL) 7.52 Lymph # (Auto) (1.0 - 3.8 x10 3/uL) 1.12 Starke # (Auto) (0.1 - 0.8 x10 3/uL) 0.81 H Eos # (Auto) (0.0 - 0.2 x10 3/uL) 1.15 H Baso # (Auto) (0.0 - 0.2 x10 3/uL) 0.08 Abs Immat Gran (auto) (0.00 - 0.03 x10 3/uL) 0.07 H Add Manual Diff NO Immature Gran % (0.0 - 2.0 %) 0.7 Nucleated RBC % (0 - 0 %) 0.0 Nucleated RBCs # (Man) (0.0 - 0.1 x10 3/uL) 0.00 Diagnosis, Assessment PlanFree Text A P:Non-STEMIMultivessel CADS/p CABG k9Guyhblui deconditioningImpaired mobility and gaitPostoperative anemiaDyslipidemiaHypertensionAKIAcute systolic heart failureHemodynamic issues postopLeukocytosis trending downPleural effusion and atelectasis Plan:Continue PT/OTOut of bed to chairWork on strength, bed mobility, transfers, gaitSternal precautionIncrease enduranceFall precautionsMonitor p.o. intake and nutritionStrict decubitus precautionsMonitor anemia. Persistent left pneumothorax. IR guided pigtail place. CXR shows expansion of the lung Urology consulted -Pt on FlomaxNephrology managing renal issues and elevated K+Utilize IS to reduce atelectasisAdvance therapies as toleratedPt lives alone and has 5 to 6 stairs to enter houseSNF order has been placed. Will require insurance approval for SNF, dialysis clinic acceptance, approval for [facility] prior to discharge Total time was 33 minutes > 50% with patient performing physical examination, discussing plan of care, goals, therapies, progress, medications, labs, SNF. All questions answeredRehab attestation:. at 1949 RPT #:[id number] OF REPORTPRProgress [id number]:56:[id number] Available for patient [id number]:50:18 [facility]ACL 2022-07-25 15:40:00 [id number]:40:00 [facility] ([facility])Hospitalist Progress NoteREPORT#:[id number] REPORT STATUS: SignedDATE:07/25/22 TIME: 1540 PATIENT: SHERRI ARCE UNIT #: [id number]#: [id number] [address] [birth year] AGE: 81 SEX: M ATTEND: Los Crawford DOADM AUTHOR: Los Crawford DO * ALL edits or amendments must be made on the electronic/computer document * SubjectiveChief complaint:No new complaints Objective GeneralVS/I O:Vital Signs: Date Time Temp Pulse Resp B/P [...] Output, Urine 800 PATIENT WEIGHT: Weight (lb): 187Weight (oz): 9.81Weight (kg): 85.100 Physical ExamGeneral appearance: alert, awake, orientedHead/Eyes: atraumatic, EOMI, normal conjunctiva/sclera, normocephalic, PERRLAENT: moist mucosal membranesNeck: no JVDCardiovascular: normal heart sounds, regular rate rhythmRespiratory: aerating well, clear to auscultation, symmetric expansion, no distressAbdomen: non-tender, normal bowel sounds, soft, no distention, no guarding, no reboundGenitourinary: urinary catheterExtremities: no edemaMusculoskeletal: normal inspectionNeuro/GIFT OFFICER: normal speech, no motor deficits, no sensory deficitsSkin: intact, normal color, no rashPsychiatry: normal affect Treatment Prophylaxis Treatment ProphylaxisDrain(s)/tube(s): Drain(s)/tube(s): chest Diagnosis, Assessment PlanConsultants: nephrology Free Text DxA P NotesFree text DxA P notes:NSTEMI, CAD (coronary artery disease), S/P CABG X 5 ON 07/08- STABLE, CARD/CTS SEEN, TX TO SNF ON THURSDAY, EF 30-35% patient presented with NSTEMI and found to hve severe CAD. Cardiac cath shows: Left Main - Distal 70% LAD - Proximal 80% with another 60% and 70% lessions Cir - Proximal 80%,mid 80-90%, Distal 70% and OM 60% RCA - large dominant with proximal 40%, Mid 60%. Echo: ef 30-34%, mod hypokinesis of entire myocardium, grade 1 diastolic dysfunction Patient on ASA, plavix, BB and Statin on amiodarone, Beta-tomas as tolerated for low BP, Acute systolic heart failure - STABLE, NO CHARLY/BB DUE TO LOW BP, ON MIDODRINE PRN, EF 30-35% Echocardiac with estimated LVEF of 30 to 34% with grade 1 diastolic dysfunction-s/p Lasix 20 mg twice daily 07/05 -on metoprolol 12.5 mg bid on hold now, BP low-no ACEI/ spironolactione for CLAUDETTE-Start GDMT prior to discharge-Await [facility]2/14 - L[facility]EST at bedside. CLAUDETTE (acute kidney injury) DUE TO POST-OBS NEPHROPATHY - ON HD MWF, RENAL/UROL SEEN, NEEDS SNF WITH DIALYSIS ACCESS, CONT WATERS, FLOMAX, ABLE BODIED TANKERMAN FROM 7.0 TO 4.3 No prior Hx of renal disease. hx of BPH and treated with Fosamax w/o improvement nd continue to have difficulty urinating. On admission was found to be on acute renal filaure and had received HD twice prior to arrival here (thursday and thursday). 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 BPH (benign prostatic hyperplasia) - ABOVE, ON WATERS Started on Flomax at the previous hospital, will continue with it. Waters catheter in place, continue Waters catheter as per nephrology 07/05 Goiter Hx of Goiter and surgical resection. TSH 3.33, within normal limits. Patient is not on Thyroid medication. RXT LEUKOCYTOSIS - STABLE, NO INFECTION DEBILITY - OT/PT SEEN, SNF TX SOON UTI continue Rocephin for empiric treatment pending results of urine culture No growth for 48 hours DVT prophylaxis: Heparin 5000 units every 8 hoursDiet: Cardiac dietCODE STATUS: Full code Disposition: Status post CABG x5 on 07/09, hemodialysis as per nephrology. Worked with PT in his room, on 2 L oxygen via nasal cannula. PT/OT on board. Await [facility] and SNF placement 07/22- awaiting SNF. lifevest arranged.07/23 stable, awaiting SNF placement07/24- awaiting SNF07/25 awaiting SNF, discussed with case management Quality: Gen Med Crit Care VTE ProphylaxisVTE prophylaxis initiated: yes Advanced Care Plan 65 or OlderDiscussed with: patientDiscussion included: living will (none), power of school commissioner (none), code status (full code) at 1541 RPT #:[id number] OF REPORTPRProgress [id number]:[id number] Available for patient [id number]:41:43 [facility]ACL 2022-07-25 14:58:00 [id number]:58:00 [facility] ([facility])Cardiothoracic Surgery ProgREPORT#:[id number] REPORT STATUS: SignedDATE:07/25/22 TIME: 1457 PATIENT: SHERRI ARCE UNIT #: [id number]#: [id number] ROOM[address]DOB: [birth year] AGE: 81 SEX: M ATTEND: MarshaJesus Esequiel MDADM AUTHOR: Gianna Hoover * ALL edits or amendments must be made on the electronic/computer document * GeneralPost-op: day 16Status post:07/08/22 CABG x 5 (MISTRY-LAD, SVG-Ladonna, SVG-OM1< SVG-OM3, SVG-PDA) ALAA EVH (RGSV) SubjectiveChief complaint:s/p CABGno complaints Review of SystemsConstitutional:Denies: chills, fever, malaise. Allergy/Immun:Denies: allergic reaction. Respiratory:Denies: SOB. Cardiovascular:Denies: chest pain, palpitations. GI:Denies: abdominal pain, nausea, vomiting. :Denies: dysuria, hematuria. Heme:Denies: bleeding. Neuro:Denies: dizziness, headache, vision change. All systems rev neg: except as marked Objective GeneralVS/I OLast Documented: Result Date Time Pulse Ox 97 [...] Output, Urine 800 PATIENT WEIGHT: Weight (lb): 187Weight (oz): 9.81Weight (kg): 85.100 Physical ExamGeneral appearance: alert, awake, orientedWound/incision: Location:sternal Site condition: edges approximated, incision intact, no drainage, no ecchymosis, no erythemaHEENT: anicteric, mucosal membranes moistNeck: supple/no meningismusCardiovascular: normal heart sounds, regular rate rhythmRespiratory: aerating well, symmetric expansion, no distressAbdomen: soft, non-tender, no distentionGenitourinary: foleyExtremities: moves allNeuro/GIFT OFFICER: alert, oriented X 3, normal speech, no motor deficitsPsychiatry: normal affect, normal mood Treatment Prophylaxis Treatment ProphylaxisDrain(s)/tube(s): Drain(s)/tube(s): chest Quality: Trauma Gen Surg Advanced Care Plan 65 or OlderDiscussed with: patientDiscussion included: living will (none), power of school commissioner (none), code status (full code) VTE Prophylaxis - GeneralVTE prophylaxis initiated: yes Diagnosis, Assessment PlanHospital course to date:This is a 81-year-old gentleman who presented to an outside hospital with complaints of chest pains while walking at his home on Thursday. He denies any previous history of coronary artery disease or other [place]. He was seen and evaluated at [facility]. He was found to have a urinary tract infection with urinary retention and acute kidney. He was started on dialysis via a left femoral temporary catheter. He underwent dialysis on Thursday, Thursday. Renal has been consultedDuring his work-up at outside hospital he underwent Left heart catheterization showing severe Left Main 70%. LAD: Proximal diffuse 80% stenosis and then diffuse 60% in the midsegment and on the distal segment, there is focal 70% stenosis. Diagonal branches with luminal irregularities. Left circumflex, codominant circulation with proximal 80%, mid 80 to 90% and then in the OM, there is proximal 60%, distal left circumflex has a 70% stenosis. RCA large and dominant with proximal 40% stenosis, mid 60% stenosis and then diffuse 50% stenosis all the way distally and the PLV and the PDA with luminal irregularities. CV surgery consulted for evaluation for coronary bypass graft. CAROTIDS- No carotid stenosis CT chest complete IMPRESSION: Small bilateral pleural effusions with bibasilar atelectasis. Echo:1. Left ventricle: The cavity size is at the upper limits of normal. Wall thickness is mildly increased. Systolic function is severely reduced. The estimated ejection fraction is 30-34%. Moderate hypokinesis of the entire myocardium. Doppler parameters are consistent with abnormal left ventricular relaxation (grade 1 diastolic dysfunction).2. Pericardium, extracardiac: A small pericardial effusion is identified along the left ventricular free wall, along the right ventricular free wall, and along the right atrial free wall. Assessment/Plan1) CAD Mutlivessel Will obtain echo,carotids. 2) CLAUDETTE Started dialysis on Creatine 7.3 Renal consulted. 3) BPH- Urinary retention. Waters in place Workup for CABG underway. Will get functional assessment with PT. PFT pending Carotid dopplers- No disease Echo PendingDialyiss per Renal. Baseline Cr unknown. 07/04 07/04 Doing well today, alert, up in the chair. Denies chest painEchocardiogram showed LVEF 30 to 34%, mild MR, trivial TRCT chest images reviewedEncourage I-S and mobilizationCreatinine 5.5 from 7.3, good urine output. Renal US showed bilateral severe hydronephrosis. Plan for HD today and tomorrow Will tentatively schedule patient for surgery on Thursday.Patient seen and plan reviewed with Dr Schwarz 07/05 Remains in a stable condition, denies chest pain BUN 53, creatinine 5.4. Plan for hemodialysis today and tomorrow for clearanceHe is also on Lasix 20 mg IV twice daily, urine output 1.1 L overnightWe will calculate risk of surgery with STS scoreEncourage I-S and mobilizationWill tentatively schedule patient for surgery on Thursday.Pt seen and plan reviewed with Dr Schwarz 07/06 BUN 36, creatinine 4.4. Plan for hemodialysis todayAwaiting CABG tomorrowSurgery, risks involved, STS score, benefits, complications and alternatives were explained to the patient. He acknowledged understanding and is willing to proceedN.p.o. after midnightPatient seen and plan reviewed with Dr. Schwarz 07/09/22POD 1CABG x 5 (MISTRY-LAD, SVG-Ladonna, SVG-OM1< SVG-OM3, SVG-PDA), ALAA, EVH (RGSV)Patient hemodynamically unstable, on epi at 4, and vaso .04, decreased uop overnight- 150ccStarted patient on CRRT 2k/3.5Wean epi as tolerated, Cardiac incex 2.8-3labs and chest x-ray reviewed, electrolytes stable, hgb 6.5- transfuse 2 units PRBCOn 4l nasal cannula- encourage incentive spirometer and deep breathingKeep both chest tubes and monitor outputsGlycemic control on insulin dripCardiac dietBowel regimen protocolPain managementSCDs for DVT and PPI for GI prophylaxisPT/OTMonitor patient closely in CVICUPlan of care discussed with Dr. Schwarz 07/10/22 2Patient alert, awake, and oriented, no distres notedlabs and CXR reviewed stableBreathing comfortably on 3l nasal cannula- wean as tolerated to melissa O2 sats > 92%Encourage I-S use and deep breathingOn CRRT- able to remove 2.9L overnight- nephrology followingCardiac index 3.1- wean off epi dripKeep chest tubes for now and monitor outputsTransition to sliding scale insulin- cardiac dietTry to get patient out of bed to chair today- ambulate with PT/OTSCDs for DVT prophylaxisKeep patient in CVICU for close monitoring 07/11/22 3Patient in stable condition, overnight events noted- decreased urine output 35 ml last night-started on dopamine gtt for renal perfusionCardiac index 3.5- epi currently at 2- will discontinue today, vasopressin at 0.02, added low dose midodrine 2.5 mg TID, repeat echocardiogram.Renal Following- trial LasixPatient has Left femoral temp dialysis cath, Will need tunneled dialysis IJ cathplaced if need dialysis. On 5l nasal cannula- wean off as tolerated, encourage incentive spirometer and deep breathingKeep left pleural chest tube and monitor output- > 200 cc Tolerating diet, bowel regimen protocolPT/OT- patient out of bed to chair today- encourage ambulationDVT prophylaxis with SCDsMonitor patient closely in CVICUPlan discussed with multidisciplinary teamPlan discussed with Dr Schwarz/ Dr Rodríguez 07/12/22PO 5,Patient resting comfortable. Patient with hx of urinary retention- After standing today- voided 1.4 L. Needs Urology consult for retention K 5.4- HD in progress. Dr Plaza following. CT output 20- DC today. Pacers remain in place. Patient has Left femoral temp dialysis cath, Re-evaluate on Thursday if fpc dialysis needed. Card: Remains in sinus rhythm. Respir: on 7 L NC O2 95%Dispo: Rehab consultedPatient seen and exmained by Dr Rodríguez. Plan discussed with Team 07/13/22 5Patient with no new complaints. Recieved HD yesterday.Requiring less oxygen, now on 3l nasal cannula- continue to wean offCXR reviewed left apical pneumothorax 4cm/30%, Chest tube drained 140 overnight,placed back on suction to clear pneumo, CT drianed 200cc this AM. on suction. Labs reviewed- stable, decreased WBC, hgb stable, CR 3.9Eating welll, +BMUO- 550CC, BP improved on midodrine. Continue PT/OT, ambulation and incentive spirometer useRehab folowing Monitor in ICU todayDisucssed with Dr Schwarz- DC femoral line and Central line today. DC art line. Will re-eval need for dialysis cath Thursday. Consider tunnelled cath if need.Patient seen and examined by Dr Rodríguez. Plan discussed with Care team. 07/14POD 6Patient in stable condition, no distress notedRemains on room air, O2 sats > 92%, encourage I-S use and deep breathingCXR shows moderate left apical pneumothorax unchangedCT remained on suction, no airleak noConsult IR for pigtail chest tube placement this morningCardiac/renal dietLabs reviewed- K 5.1- repeat labs K 4.8Nephrology followingContinue therapy with PT/OTFollow up with urology for waters catheter- Dr Harris consulted.Monitor in CVICUPlan of care discussed with Dr Schwarz and multidisciplinary team 07/15/22POD 7Patient alert, awake, and oriented, no distress, no complaints at this timeBreathing comfortable on room airCXR shows resolved pneumothoraxLP and pigtail chest tube- no air leak noted, minimal output from LP 40 overnightLabs reviewed, K 5.2- corrected, follow up with nephrology to discuss need for dialysisTrend labs this afternoonBowel regimen, +gasFoley catheter discontinued per urology- voiding trial this AMAmbulation and incentive spirometer use encouragedDVT prophylaxis with SCDsKeep in ICU DISP: SNF- Case management Discussed plan of care with multidisciplinary team and Dr. Schwarz 3POD 8Patient doing well, alert, awake, and orientedO2 sats 93% on room air, encourage I-SCXR stable- no pneumo notedLeft pigtail chest tube - no air leak, clamped this morning, repeat CXRPlacement of tunneled dialysis catheter (BioFlo DuraMax 28 cm) yesterdayHD treatment done yesterday evening, plan for HD treatment today per nephrologyPatient failed voiding trial, waters catheter replaced- follow up with urologyEating wellContinue PT/OT- ambulationTransfer to CV 1 intermediate care unitDischarge planning for SNF- CM following and to set up dialysis chairPatient seen with Dr. Schwarz and discussed plan of care with multidisciplinary team. 07/17/22Patient in stable condition, no complaintsLabs and CXR reviewed- stableLeft pigtail chest tube discontinued yesterday- no pneumo notedRemains on room air, no distress- I-S encouragedCardiac diet, +BMKeep waters per urology f/u outpt, continue flomaxHD per nephrology- CM to setup outpt dialysis chairAwaiting bed availability on CV 1Discharge planning- SNFPlan of care discussed with multidisciplinary team and Dr. Schwarz. 07/18 Patient in stable condition, no complaintsRemains on room air, no distress- I-S encouragedEpicardial pacing wires discontinued. Limited echo to rule out pericardial effusionKeep waters per urology f/u outpt, continue flomaxHD per nephrology- CM to setup outpt dialysis chairDischarge planning- SNFPlan of care discussed with multidisciplinary team and Dr. Schwarz. 07/19 No new eventsEchocardiogram done, report pendingHD per nephrology- CM to setup outpt dialysis chairWaiting insurance approval for shelter facilityPatient seen and plan reviewed with Dr. Schwarz 07/20 Remains in a stable condition.Echocardiogram showed LVEF 30 to 34%, trivial pericardial effusionHD schedule per nephrologyAwaiting insurance approval for SNF 07/21 No complaints todayHD schedule per nephrologyAwaiting insurance approval for SNFEncourage I-S and mobilization 07/22 Remains in stable conditionContinue current management.Aspirin, Plavix, statin. Did not tolerate metoprolol, on midodrine 5 mg 3 timesdailyWBCs trending downAwaiting insurance approval for SNF 07/23 No new events Hemodialysis this mornning Hemodynamically stable, sinus rhythm 80sAwaiting placement 07/24 Doing well today No changes in sternal incision Sternal precautions for 6 weeks Awaiting placement 07/25/22Doing well. Denies CPDialysis today. Sternum clean dryLabs reveiwed.Life vest ordered. EF 30%- 35%Awaiting placement Consultants: nephrology at 1501 at 1008 RPT #:[id number] OF REPORTPRProgress [id number]:58:[id number] Available for patient [id number]:02:23 [facility] 2022-07-25 10:09:00 [id number]:09:00 [facility] ([facility])Nephrology Progress NoteREPORT#:[id number] REPORT STATUS: SignedDATE:07/25/22 TIME: 1009 PATIENT: SHERRI ARCE UNIT #: [id number]#: [id number] [address] [birth year] AGE: 81 SEX: M ATTEND: Los Crawford DOADM AUTHOR: Evelina Plaza MD * ALL edits or amendments must be made on the electronic/computer document * SubjectiveChief complaint:Feeling okay and has no complaints at this time. Objective GeneralMedicationsActive Meds + DC'd Last 24 HrsMidodrine (PROAMATINE) 5 MG 0900,1300,1700 PRN PO Sodium Chloride (SODIUM CHLORIDE) 10 ML ASDIR IV Amiodarone HCl (CORDARONE) 200 MG BID PO Ipratropium [place] (ATROVENT) 500 MCG RTQ2H PRN PRN INH Lactulose (LACTULOSE) 20 GM DAILY PRN PRN PO Cyanocobalamin (Vitamin B-12 500 mcg tab) 500 MCG DAILY PO Ferrous Sulfate (FERROUS SULFATE) 325 [...] (Senna Lax 8.6 MG TABLET) 17.2 MG BEDTIME PO Ipratropium [place] (ATROVENT) 500 MCG RTQ4H INH Acetaminophen (TYLENOL) 650 MG Q4H PRN PRN PO Acetaminophen (TYLENOL) 650 MG Q4H PRN PRN RECTAL Dextrose/Water (DEXTROSE 10% IN WATER) 125 ML ASDIR PRN IV (CKD) Dextrose/Water (DEXTROSE 10% IN WATER) 250 ML ASDIR PRN IV (CKD) Glucagon (GLUCAGON) 1 MG ASDIR PRN IM Magnesium Sulfate (MAGNESIUM SULFATE 4GM/SWFI 100ML) 100 ML ASDIR PRN IV Magnesium Sulfate (MAGNESIUM SULFATE 2GM/SWFI 50ML) 50 ML ASDIR PRN IV Magnesium Sulfate/Dextrose (MAGNESIUM SULFATE 1GM/D5W 100ML) 100 ML ASDIR PRN IV Ondansetron HCl (ZOFRAN) 4 MG Q6H PRN PRN IV Albumin Human (ALBUMINAR-25%) 12.5 GM ASDIR PRN IV Heparin Sodium (Porcine) (HEPARIN SODIUM) 3,000 UNIT ASDIR PRN DIALYSIS Lidocaine HCl (LIDOCAINE HCL/PF) 0.5 ML ASDIR PRN I-DERMAL (CKD) Mannitol (Mannitol 20%) 12.5 GM ASDIR PRN IV Sodium Chloride (SODIUM CHLORIDE 0.9%) 2,000 ML ASDIR PRN IV Tamsulosin HCl (Flomax 0.4 mg) 0.4 MG BEDTIME PO Physical ExamHead/eyes: atraumatic, normocephalicENT: moist mucous membranes, normal noseNeck: non-tender, no JVDCardiovascular: regular rate and rhythmRespiratory: clear to auscultationAbdomen: non-tender, softGenitourinary: no bladder distentionExtremities: no edema, no swellingNeuro/GIFT OFFICER: alert, oriented X 3, normal speechSkin: dry, intact ResultsFindings/Data:Laboratory Tests 07/25 07/25 0446 0446 Chemistry Sodium [...] (Auto) (14.0 - 32.0 %) 8.9 L Starke % (Auto) (4.8 - 9.0 %) 8.6 Eos % (Auto) (0.3 - 3.7 %) 11.4 H Baso % (Auto) (0.0 - 2.0 %) 0.9 Neut # (Auto) (2.0 - 7.6 x10 3/uL) 7.38 Lymph # (Auto) (1.0 - 3.8 x10 3/uL) 0.95 L Starke # (Auto) (0.1 - 0.8 x10 3/uL) 0.91 H Eos # (Auto) (0.0 - 0.2 x10 3/uL) 1.21 H Baso # (Auto) (0.0 - 0.2 x10 3/uL) 0.10 Abs Immat Gran (auto) (0.00 - 0.03 x10 3/uL) 0.09 H Add Manual Diff NO Immature Gran % (0.0 - 2.0 %) 0.8 Nucleated RBC % (0 - 0 %) 0.0 Nucleated RBCs # (Man) (0.0 - 0.1 x10 3/uL) 0.00 Treatment Prophylaxis Treatment ProphylaxisDrain(s)/tube(s): Drain(s)/tube(s): chest Diagnosis, Assessment PlanFree Text A P:Assessment:1-CLAUDETTE likely from urinary retention with underlying CKD. oliguric CLAUDETTE now post op, and shock. 2- non-STEMI: multivessel disease w main left. S/P CABG X5 on - BPH. Waters catheter is in place.4-severe bilateral hydronephrosis5- shock : Cardiogenic resolved. 6-hyperlipidemia7- AGMA resolved. Plan:- unknown Scr baseline.- HD MWF here. seen during HD today. - Still has excellent urine output volume. - Ultrasound showed severe bilateral hydronephrosis and medical renal disease. Urology seen and recommended Waters catheter when discharged home with Flomax, and outpatient follow-up.- He underwent LHC on 07/03. - Started on HD on 07/04. - s/p CABG X5 on 07/08- TDC placed 07/15. - cr cl 7 ml/min. - discussed with CM. HD scheduled TTS, hopefully first HD on Thursday. okay to d/c home after HD in am. Pending placement arrangement. Consultants: nephrology at 1646 RPT #:[id number] OF REPORTPRProgress [id number]:09:[id number] Available for patient [id number]:47:05 [facility] 2022-07-25 09:51:00 [id number]:51:00 [facility] ([facility])Cardiology Progress NoteREPORT#:[id number] REPORT STATUS: SignedDATE:07/25/22 TIME: 09 PATIENT: SHERRI ARCE UNIT #: [id number]#: [id number] [address] [birth year] AGE: 81 SEX: M ATTEND: Jesus Larson MDADM AUTHOR: Sonya Stacy AGACNP * ALL edits or amendments must be made on the electronic/computer document * SubjectivePatient reports:No: complaints. Objective GeneralVS/I O:24 hour I O ending at 0700: 07/25 0700 07/24 1900 Intake Total Output Total 800 Balance -800 Output, Urine 800 Vital Signs: Date Time Temp Pulse Resp B/P B/P Pulse O2 O2 Flow FiO2 Mean Ox Delivery Rate 07/25 0853 [...] 135/74 94.3 98 PATIENT WEIGHT: Weight (lb): 187Weight (oz): 9.81Weight (kg): 85.100 Medications:Active Meds + DC'd Last 24 HrsMidodrine (PROAMATINE) 5 MG 0900,1300,1700 PRN PO Sodium Chloride (SODIUM CHLORIDE) 10 ML ASDIR IV Amiodarone HCl (CORDARONE) 200 MG BID PO Ipratropium [place] (ATROVENT) 500 MCG RTQ2H PRN PRN INH Lactulose (LACTULOSE) 20 GM DAILY PRN PRN PO Cyanocobalamin (Vitamin B-12 500 mcg tab) 500 MCG DAILY PO Ferrous Sulfate (FERROUS SULFATE) 325 [...] (Senna Lax 8.6 MG TABLET) 17.2 MG BEDTIME PO Ipratropium [place] (ATROVENT) 500 MCG RTQ4H INH Acetaminophen (TYLENOL) 650 MG Q4H PRN PRN PO Acetaminophen (TYLENOL) 650 MG Q4H PRN PRN RECTAL Dextrose/Water (DEXTROSE 10% IN WATER) 125 ML ASDIR PRN IV (CKD) Dextrose/Water (DEXTROSE 10% IN WATER) 250 ML ASDIR PRN IV (CKD) Glucagon (GLUCAGON) 1 MG ASDIR PRN IM Magnesium Sulfate (MAGNESIUM SULFATE 4GM/SWFI 100ML) 100 ML ASDIR PRN IV Magnesium Sulfate (MAGNESIUM SULFATE 2GM/SWFI 50ML) 50 ML ASDIR PRN IV Magnesium Sulfate/Dextrose (MAGNESIUM SULFATE 1GM/D5W 100ML) 100 ML ASDIR PRN IV Ondansetron HCl (ZOFRAN) 4 MG Q6H PRN PRN IV Albumin Human (ALBUMINAR-25%) 12.5 GM ASDIR PRN IV Heparin Sodium (Porcine) (HEPARIN SODIUM) 3,000 UNIT ASDIR PRN DIALYSIS Lidocaine HCl (LIDOCAINE HCL/PF) 0.5 ML ASDIR PRN I-DERMAL (CKD) Mannitol (Mannitol 20%) 12.5 GM ASDIR PRN IV Sodium Chloride (SODIUM CHLORIDE 0.9%) 2,000 ML ASDIR PRN IV Tamsulosin HCl (Flomax 0.4 mg) 0.4 MG BEDTIME PO Status post:07/08/22 CABG x 5 (MISTRY-LAD, SVG-Ladonna, SVG-OM1< SVG-OM3, SVG-PDA) ALAA Physical ExamGeneral appearance: alert, awakeHead/Eyes: atraumaticENT: moist mucosal membranesNeck: no JVDCardiovascular: CV assessment: regular rate and rhythm, no murmurRespiratory: decreased breath sounds, no distressAbdomen: soft, non-tender, normal bowel sounds, no distention, no guardingUpper extremity: UE assessment: normal temperature, no edemaLower extremity: LE assessment: normal temperature, no edemaMusculoskeletal: normal inspectionNeuro/GIFT OFFICER: alert, oriented X 3, normal speechSkin: dryPsychiatry: normal affect ResultsFindings/Data:Laboratory Tests 07/25 07/25 0446 0446 Chemistry Sodium [...] (Auto) (14.0 - 32.0 %) 8.9 L Starke % (Auto) (4.8 - 9.0 %) 8.6 Eos % (Auto) (0.3 - 3.7 %) 11.4 H Baso % (Auto) (0.0 - 2.0 %) 0.9 Neut # (Auto) (2.0 - 7.6 x10 3/uL) 7.38 Lymph # (Auto) (1.0 - 3.8 x10 3/uL) 0.95 L Starke # (Auto) (0.1 - 0.8 x10 3/uL) 0.91 H Eos # (Auto) (0.0 - 0.2 x10 3/uL) 1.21 H Baso # (Auto) (0.0 - 0.2 x10 3/uL) 0.10 Abs Immat Gran (auto) (0.00 - 0.03 x10 3/uL) 0.09 H Add Manual Diff NO Immature Gran % (0.0 - 2.0 %) 0.8 Nucleated RBC % (0 - 0 %) 0.0 Nucleated RBCs # (Man) (0.0 - 0.1 x10 3/uL) 0.00 Laboratory Tests 07/25 0446 Chemistry Magnesium (1.80 - 2.40 mg/dL) 1.87 Results: labs reviewed, vital signs reviewed, rhythm personally rev'dTelemetry Interpretation:sinus rhythm Diagnosis, Assessment PlanProblem List/A P: 1. HTN (hypertension) 2. CLAUDETTE (acute kidney injury) 3. CAD (coronary artery disease) 4. Dyslipidemia 5. BPH (benign prostatic hyperplasia) Consultants: nephrologyPlan discussed with: patient, nurse Free Text DxA P NotesFree Text DxA P Notes:Mr. Arce is a pleasant 81 y/o M w/ PMHx: HTN, HLD presented to [facility] on 06/28/22 for chest pain and sob. He was diagnosed NSTEMI. LHC showed multivessel CAD. Transferred to [facility] for CABG. 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 urology consulted for bladded outlet obstruction and hydronephrosis, started on Flomax HD per nephro - HTN. bp stable, midodrine as needed - HLD. On statins. - Anemia. monitor Patient has been doing well.CM working on discharge arrangements at 0954 at 0859 RPT #:[id number] OF REPORTPRProgress [id number]:51:[id number] Available for patient [id number]:54:40 [facility] 2022-07-25 07:15:00 [id number]:15:00 [facility] ([facility])Rehab Progress NoteREPORT#:[id number] REPORT STATUS: SignedDATE:07/25/22 TIME: 714 PATIENT: SHERRI ARCE UNIT #: [id number]#: [id number] [address] [birth year] AGE: 81 SEX: M ATTEND: [place] Crawford DOADM AUTHOR: Magdaleno Washburn * ALL edits or amendments must be made on the electronic/computer document * SubjectiveChief complaint:Rehab follow-upGetting dialysis in roomDenies pain or sobPleasantDenies NAIK/N/V/D/CP14 systems reviewed and neg. except that above. Objective GeneralVS:Vital Signs: Date Time Temp Pulse Resp B/P B/P Pulse O2 O2 Flow FiO2 Mean Ox Delivery Rate 07/25 0342 [...] Room air 21 PATIENT WEIGHT: Weight (lb): 187Weight (oz): 9.81Weight (kg): 85.100 Medications:Active Meds + DC'd Last 24 HrsMidodrine (PROAMATINE) 5 MG 0900,1300,1700 PRN PO Sodium Chloride (SODIUM CHLORIDE) 10 ML ASDIR IV Amiodarone HCl (CORDARONE) 200 MG BID PO Ipratropium [place] (ATROVENT) 500 MCG RTQ2H PRN PRN INH Lactulose (LACTULOSE) 20 GM DAILY PRN PRN PO Cyanocobalamin (Vitamin B-12 500 mcg tab) 500 MCG DAILY PO Ferrous Sulfate (FERROUS SULFATE) 325 [...] (Senna Lax 8.6 MG TABLET) 17.2 MG BEDTIME PO Ipratropium [place] (ATROVENT) 500 MCG RTQ4H INH Acetaminophen (TYLENOL) 650 MG Q4H PRN PRN PO Acetaminophen (TYLENOL) 650 MG Q4H PRN PRN RECTAL Dextrose/Water (DEXTROSE 10% IN WATER) 125 ML ASDIR PRN IV (CKD) Dextrose/Water (DEXTROSE 10% IN WATER) 250 ML ASDIR PRN IV (CKD) Glucagon (GLUCAGON) 1 MG ASDIR PRN IM Magnesium Sulfate (MAGNESIUM SULFATE 4GM/SWFI 100ML) 100 ML ASDIR PRN IV Magnesium Sulfate (MAGNESIUM SULFATE 2GM/SWFI 50ML) 50 ML ASDIR PRN IV Magnesium Sulfate/Dextrose (MAGNESIUM SULFATE 1GM/D5W 100ML) 100 ML ASDIR PRN IV Ondansetron HCl (ZOFRAN) 4 MG Q6H PRN PRN IV Albumin Human (ALBUMINAR-25%) 12.5 GM ASDIR PRN IV Heparin Sodium (Porcine) (HEPARIN SODIUM) 3,000 UNIT ASDIR PRN DIALYSIS Lidocaine HCl (LIDOCAINE HCL/PF) 0.5 ML ASDIR PRN I-DERMAL (CKD) Mannitol (Mannitol 20%) 12.5 GM ASDIR PRN IV Sodium Chloride (SODIUM CHLORIDE 0.9%) 2,000 ML ASDIR PRN IV Tamsulosin HCl (Flomax 0.4 mg) 0.4 MG BEDTIME PO Functional ProgressFunctional progress: Activities Performed Cmt: PATIENT COMPLETED SIT <> STANDS TRANSFERS, COMMUNITY MOBILITY WITH TRANSPORT CHAIR HANDLES. PATIENT WAS RETURNED TO BS CHAIR WITH ALL NEEDS IN REACH. Assistive Device Used: Staff Support TRANSPORT CHAIR HANDLES Balance: Good Safety Awareness: Fair Effects of Treatment: Circulation improved Tolerance increased Comments: PATIENT WAS EDUCATED ON DME (SHOWER CHAIR). Physical ExamGeneral appearance: alert, awake, no acute distress, pleasantPsych: alert, oriented x 3HEENT: anicteric, sclera clearNeck: supple, no JVDCardiovascular: regular rate rhythm, S1/A3Sttulcyuwcz: aerating well, clear bilaterallyAbdomen: bowel sounds present, non-distended, softSkin: intact, no rashMusculoskeletal - general: Musculoskeletal - general: joints normal, normal muscle mass, normal toneNeuro/GIFT OFFICER: alert, oriented X 3, CNII-XII intact ResultsFindings/Data:Laboratory Tests 07/24 07/24 07/23 07/23 0449 0449 [...] - 32.0 %) 9.8 L 8.3 L Starke % (Auto) (4.8 - 9.0 %) 8.7 8.2 Eos % (Auto) (0.3 - 3.7 %) 11.0 H 10.8 H Baso % (Auto) (0.0 - 2.0 %) 1.0 0.8 Neut # (Auto) (2.0 - 7.6 x10 3/uL) 7.17 8.26 H Lymph # (Auto) (1.0 - 3.8 x10 3/uL) 1.02 0.96 L Starke # (Auto) (0.1 - 0.8 x10 3/uL) 0.90 H 0.95 H Eos # (Auto) (0.0 - 0.2 x10 3/uL) 1.14 H 1.25 H Baso # (Auto) (0.0 - 0.2 x10 3/uL) 0.10 0.09 Abs Immat Gran (auto) (0.00 - 0.03 x10 3/uL) 0.07 H 0.10 H Add Manual Diff NO NO Immature Gran % (0.0 - 2.0 %) 0.7 0.9 Nucleated RBC % (0 - 0 %) 0.0 0.0 Nucleated RBCs # (Man) (0.0 - 0.1 x10 3/uL) 0.00 0.00 Diagnosis, Assessment PlanFree Text A P:Non-STEMIMultivessel CADS/p CABG z1Ixswvjxt deconditioningImpaired mobility and gaitPostoperative anemiaDyslipidemiaHypertensionAKIAcute systolic heart failureHemodynamic issues postopLeukocytosis trending downPleural effusion and atelectasis Plan:Continue PT/OTOut of bed to chairWork on strength, bed mobility, transfers, gaitSternal precautionIncrease enduranceFall precautionsMonitor p.o. intake and nutritionStrict decubitus precautionsMonitor anemia. Persistent left pneumothorax. IR guided pigtail place. CXR shows expansion of the lung Urology consulted -Pt on FlomaxNephrology managing renal issues and elevated K+Utilize IS to reduce atelectasisAdvance therapies as toleratedPt lives alone and has 5 to 6 stairs to enter houseSNF order has been placed. Will require insurance approval for SNF, dialysis clinic acceptance, approval for [facility] prior to discharge Ambulating 500ft SPV NO DME Total time was 33 minutes > 50% with patient performing physical examination, discussing plan of care, goals, therapies, progress, medications, labs, SNF. All questions answeredRehab attestation:. at 1752 RPT #:[id number] OF REPORTPRProgress [id number]:15:[id number] Available for patient [id number]:52:31 [facility] 2022-07-24 19:46:00 [id number]:46:00 [facility] ([facility])Cardiothoracic Surgery ProgREPORT#:[id number] REPORT STATUS: SignedDATE:07/24/22 TIME: 1945 PATIENT: SHERRI ARCE UNIT #: [id number]#: [id number] [address] [birth year] AGE: 81 SEX: M ATTEND: Srinath Kaur AUTHOR: Rosalind Toribio PREMIUM CARD CANCELLATION CLERK * ALL edits or amendments must be made on the electronic/computer document * GeneralPost-op: day 10Status post:07/08/22 CABG x 5 (MISTRY-LAD, SVG-Ladonna, SVG-OM1< SVG-OM3, SVG-PDA) ALEXIS TATUM (RGSV) SubjectiveChief complaint:s/p CABG no complaints Review of SystemsConstitutional:Denies: chills, fever, malaise. Allergy/Immun:Denies: allergic reaction. Respiratory:Denies: SOB. Cardiovascular:Denies: chest pain, palpitations. GI:Denies: abdominal pain, nausea, vomiting. :Denies: dysuria, hematuria. Heme:Denies: bleeding. Neuro:Denies: dizziness, headache, vision change. All systems rev neg: except as marked Objective Physical ExamGeneral appearance: alert, orientedWound/incision: Location:sternal Site condition: edges approximated, incision intact, no drainage, no ecchymosis, no erythemaHEENT: anicteric, mucosal membranes moistNeck: supple/no meningismusCardiovascular: normal heart sounds, regular rate rhythmRespiratory: aerating well, symmetric expansion, no distressAbdomen: soft, non-tender, no distentionGenitourinary: foleyExtremities: moves allNeuro/GIFT OFFICER: alert, oriented X 3, normal speech, no motor deficitsPsychiatry: normal affect, normal mood Current MedicationsMedications:Active Meds + DC'd Last 24 HrsMidodrine (PROAMATINE) 5 MG 0900,1300,1700 PRN PO Sodium Chloride (SODIUM CHLORIDE) 10 ML ASDIR IV Amiodarone HCl (CORDARONE) 200 MG BID PO Ipratropium [place] (ATROVENT) 500 MCG RTQ2H PRN PRN INH Lactulose (LACTULOSE) 20 GM DAILY PRN PRN PO Cyanocobalamin (Vitamin B-12 500 mcg tab) 500 MCG DAILY PO Ferrous Sulfate (FERROUS SULFATE) 325 [...] (Senna Lax 8.6 MG TABLET) 17.2 MG BEDTIME PO Ipratropium [place] (ATROVENT) 500 MCG RTQ4H INH Acetaminophen (TYLENOL) 650 MG Q4H PRN PRN PO Acetaminophen (TYLENOL) 650 MG Q4H PRN PRN RECTAL Dextrose/Water (DEXTROSE 10% IN WATER) 125 ML ASDIR PRN IV (CKD) Dextrose/Water (DEXTROSE 10% IN WATER) 250 ML ASDIR PRN IV (CKD) Glucagon (GLUCAGON) 1 MG ASDIR PRN IM Magnesium Sulfate (MAGNESIUM SULFATE 4GM/SWFI 100ML) 100 ML ASDIR PRN IV Magnesium Sulfate (MAGNESIUM SULFATE 2GM/SWFI 50ML) 50 ML ASDIR PRN IV Magnesium Sulfate/Dextrose (MAGNESIUM SULFATE 1GM/D5W 100ML) 100 ML ASDIR PRN IV Ondansetron HCl (ZOFRAN) 4 MG Q6H PRN PRN IV Albumin Human (ALBUMINAR-25%) 12.5 GM ASDIR PRN IV Heparin Sodium (Porcine) (HEPARIN SODIUM) 3,000 UNIT ASDIR PRN DIALYSIS Lidocaine HCl (LIDOCAINE HCL/PF) 0.5 ML ASDIR PRN I-DERMAL (CKD) Mannitol (Mannitol 20%) 12.5 GM ASDIR PRN IV Sodium Chloride (SODIUM CHLORIDE 0.9%) 2,000 ML ASDIR PRN IV Tamsulosin HCl (Flomax 0.4 mg) 0.4 MG BEDTIME PO ResultsFindings/Data:Laboratory Tests 07/24 0449 Chemistry Sodium (134 - [...] (1.80 - 2.40 mg/dL) 1.87 Laboratory Tests 07/249 Hematology WBC (4.5 - 11.0 x10 3/uL) [...] (Auto) (14.0 - 32.0 %) 9.8 L Starke % (Auto) (4.8 - 9.0 %) 8.7 Eos % (Auto) (0.3 - 3.7 %) 11.0 H Baso % (Auto) (0.0 - 2.0 %) 1.0 Neut # (Auto) (2.0 - 7.6 x10 3/uL) 7.17 Lymph # (Auto) (1.0 - 3.8 x10 3/uL) 1.02 Starke # (Auto) (0.1 - 0.8 x10 3/uL) 0.90 H Eos # (Auto) (0.0 - 0.2 x10 3/uL) 1.14 H Baso # (Auto) (0.0 - 0.2 x10 3/uL) 0.10 Abs Immat Gran (auto) (0.00 - 0.03 x10 3/uL) 0.07 H Add Manual Diff NO Immature Gran % (0.0 - 2.0 %) 0.7 Nucleated RBC % (0 - 0 %) 0.0 Nucleated RBCs # (Man) (0.0 - 0.1 x10 3/uL) 0.00 Quality: Trauma Gen Surg VTE Prophylaxis - GeneralVTE prophylaxis initiated: yes Diagnosis, Assessment PlanHospital course to date:This is a 81-year-old gentleman who presented to an outside hospital with complaints of chest pains while walking at his home on Thursday. He denies any previous history of coronary artery disease or other [place]. He was seen and evaluated at [facility]. He was found to have a urinary tract infection with urinary retention and acute kidney. He was started on dialysis via a left femoral temporary catheter. He underwent dialysis on Thursday, Thursday. Renal has been consultedDuring his work-up at outside hospital he underwent Left heart catheterization showing severe Left Main 70%. LAD: Proximal diffuse 80% stenosis and then diffuse 60% in the midsegment and on the distal segment, there is focal 70% stenosis. Diagonal branches with luminal irregularities. Left circumflex, codominant circulation with proximal 80%, mid 80 to 90% and then in the OM, there is proximal 60%, distal left circumflex has a 70% stenosis. RCA large and dominant with proximal 40% stenosis, mid 60% stenosis and then diffuse 50% stenosis all the way distally and the PLV and the PDA with luminal irregularities. CV surgery consulted for evaluation for coronary bypass graft. CAROTIDS- No carotid stenosis CT chest complete IMPRESSION: Small bilateral pleural effusions with bibasilar atelectasis. Echo:1. Left ventricle: The cavity size is at the upper limits of normal. Wall thickness is mildly increased. Systolic function is severely reduced. The estimated ejection fraction is 30-34%. Moderate hypokinesis of the entire myocardium. Doppler parameters are consistent with abnormal left ventricular relaxation (grade 1 diastolic dysfunction).2. Pericardium, extracardiac: A small pericardial effusion is identified along the left ventricular free wall, along the right ventricular free wall, and along the right atrial free wall. Assessment/Plan1) CAD Mutlivessel Will obtain echo,carotids. 2) CLAUDETTE Started dialysis on Creatine 7.3 Renal consulted. 3) BPH- Urinary retention. Waters in place Workup for CABG underway. Will get functional assessment with PT. PFT pending Carotid dopplers- No disease Echo PendingDialyiss per Renal. Baseline Cr unknown. 07/04 07/04 Doing well today, alert, up in the chair. Denies chest painEchocardiogram showed LVEF 30 to 34%, mild MR, trivial TRCT chest images reviewedEncourage I-S and mobilizationCreatinine 5.5 from 7.3, good urine output. Renal US showed bilateral severe hydronephrosis. Plan for HD today and tomorrow Will tentatively schedule patient for surgery on Thursday.Patient seen and plan reviewed with Dr Schwarz 07/05 Remains in a stable condition, denies chest pain BUN 53, creatinine 5.4. Plan for hemodialysis today and tomorrow for clearanceHe is also on Lasix 20 mg IV twice daily, urine output 1.1 L overnightWe will calculate risk of surgery with STS scoreEncourage I-S and mobilizationWill tentatively schedule patient for surgery on Thursday.Pt seen and plan reviewed with Dr Schwarz 07/06 BUN 36, creatinine 4.4. Plan for hemodialysis todayAwaiting CABG tomorrowSurgery, risks involved, STS score, benefits, complications and alternatives were explained to the patient. He acknowledged understanding and is willing to proceedN.p.o. after midnightPatient seen and plan reviewed with Dr. Schwarz 07/09/22POD 1CABG x 5 (MISTRY-LAD, SVG-Ladonna, SVG-OM1< SVG-OM3, SVG-PDA), ALARC Farrell (RGSV)Patient hemodynamically unstable, on epi at 4, and vaso .04, decreased uop overnight- 150ccStarted patient on CRRT 2k/3.5Wean epi as tolerated, Cardiac incex 2.8-3labs and chest x-ray reviewed, electrolytes stable, hgb 6.5- transfuse 2 units PRBCOn 4l nasal cannula- encourage incentive spirometer and deep breathingKeep both chest tubes and monitor outputsGlycemic control on insulin dripCardiac dietBowel regimen protocolPain managementSCDs for DVT and PPI for GI prophylaxisPT/OTMonitor patient closely in CVICUPlan of care discussed with Dr. Schwarz 07/10/22 2Patient alert, awake, and oriented, no distres notedlabs and CXR reviewed stableBreathing comfortably on 3l nasal cannula- wean as tolerated to melissa O2 sats > 92%Encourage I-S use and deep breathingOn CRRT- able to remove 2.9L overnight- nephrology followingCardiac index 3.1- wean off epi dripKeep chest tubes for now and monitor outputsTransition to sliding scale insulin- cardiac dietTry to get patient out of bed to chair today- ambulate with PT/OTSCDs for DVT prophylaxisKeep patient in CVICU for close monitoring 07/11/22PO 3Patient in stable condition, overnight events noted- decreased urine output 35 ml last night-started on dopamine gtt for renal perfusionCardiac index 3.5- epi currently at 2- will discontinue today, vasopressin at 0.02, added low dose midodrine 2.5 mg TID, repeat echocardiogram.Renal Following- trial LasixPatient has Left femoral temp dialysis cath, Will need tunneled dialysis IJ cathplaced if need dialysis. On 5l nasal cannula- wean off as tolerated, encourage incentive spirometer and deep breathingKeep left pleural chest tube and monitor output- > 200 cc Tolerating diet, bowel regimen protocolPT/OT- patient out of bed to chair today- encourage ambulationDVT prophylaxis with SCDsMonitor patient closely in CVICUPlan discussed with multidisciplinary teamPlan discussed with Dr Schwarz/ Dr Rodríguez 07/12/22POD 5,Patient resting comfortable. Patient with hx of urinary retention- After standing today- voided 1.4 L. Needs Urology consult for retention K 5.4- HD in progress. Dr Plaza following. CT output 20- DC today. Pacers remain in place. Patient has Left femoral temp dialysis cath, Re-evaluate on Thursday if fpc dialysis needed. Card: Remains in sinus rhythm. Respir: on 7 L NC O2 95%Dispo: Rehab consultedPatient seen and exmained by Dr Rodríguez. Plan discussed with Team 07/13/22 5Patient with no new complaints. Recieved HD yesterday.Requiring less oxygen, now on 3l nasal cannula- continue to wean offCXR reviewed left apical pneumothorax 4cm/30%, Chest tube drained 140 overnight,placed back on suction to clear pneumo, CT drianed 200cc this AM. on suction. Labs reviewed- stable, decreased WBC, hgb stable, CR 3.9Eating welll, +BMUO- 550CC, BP improved on midodrine. Continue PT/OT, ambulation and incentive spirometer useRehab folowing Monitor in ICU todayDisucssed with Dr Schwarz- DC femoral line and Central line today. DC art line. Will re-eval need for dialysis cath Thursday. Consider tunnelled cath if need.Patient seen and examined by Dr Rodríguez. Plan discussed with Care team. 6Patient in stable condition, no distress notedRemains on room air, O2 sats > 92%, encourage I-S use and deep breathingCXR shows moderate left apical pneumothorax unchangedCT remained on suction, no airleak noConsult IR for pigtail chest tube placement this morningCardiac/renal dietLabs reviewed- K 5.1- repeat labs K 4.8Nephrology followingContinue therapy with PT/OTFollow up with urology for waters catheter- Dr Harris consulted.Monitor in CVICUPlan of care discussed with Dr Schwarz and multidisciplinary team 07/15/22POD 7Patient alert, awake, and oriented, no distress, no complaints at this timeBreathing comfortable on room airCXR shows resolved pneumothoraxLP and pigtail chest tube- no air leak noted, minimal output from LP 40 overnightLabs reviewed, K 5.2- corrected, follow up with nephrology to discuss need for dialysisTrend labs this afternoonBowel regimen, +gasFoley catheter discontinued per urology- voiding trial this AMAmbulation and incentive spirometer use encouragedDVT prophylaxis with SCDsKeep in ICU DISP: SNF- Case management Discussed plan of care with multidisciplinary team and Dr. Schwarz 3POD 8Patient doing well, alert, awake, and orientedO2 sats 93% on room air, encourage I-SCXR stable- no pneumo notedLeft pigtail chest tube - no air leak, clamped this morning, repeat CXRPlacement of tunneled dialysis catheter (BioFlo DuraMax 28 cm) yesterdayHD treatment done yesterday evening, plan for HD treatment today per nephrologyPatient failed voiding trial, waters catheter replaced- follow up with urologyEating wellContinue PT/OT- ambulationTransfer to CV 1 intermediate care unitDischarge planning for SNF- CM following and to set up dialysis chairPatient seen with Dr. Schwarz and discussed plan of care with multidisciplinary team. 07/17/22Patient in stable condition, no complaintsLabs and CXR reviewed- stableLeft pigtail chest tube discontinued yesterday- no pneumo notedRemains on room air, no distress- I-S encouragedCardiac diet, +BMKeep waters per urology f/u outpt, continue flomaxHD per nephrology- CM to setup outpt dialysis chairAwaiting bed availability on CV 1Discharge planning- SNFPlan of care discussed with multidisciplinary team and Dr. Schwarz. 07/18 Patient in stable condition, no complaintsRemains on room air, no distress- I-S encouragedEpicardial pacing wires discontinued. Limited echo to rule out pericardial effusionKeep waters per urology f/u outpt, continue flomaxHD per nephrology- CM to setup outpt dialysis chairDischarge planning- SNFPlan of care discussed with multidisciplinary team and Dr. Schwarz. 07/19 No new eventsEchocardiogram done, report pendingHD per nephrology- CM to setup outpt dialysis chairWaiting insurance approval for shelter facilityPatient seen and plan reviewed with Dr. Schwarz 07/20 Remains in a stable condition.Echocardiogram showed LVEF 30 to 34%, trivial pericardial effusionHD schedule per nephrologyAwaiting insurance approval for SNF 07/21 No complaints todayHD schedule per nephrologyAwaiting insurance approval for SNFEncourage I-S and mobilization 07/22 Remains in stable conditionContinue current management.Aspirin, Plavix, statin. Did not tolerate metoprolol, on midodrine 5 mg 3 timesdailyWBCs trending downAwaiting insurance approval for SNF 07/23 No new events Hemodialysis this mornning Hemodynamically stable, sinus rhythm 80sAwaiting placement 07/24 Doing well today No changes in sternal incision Sternal precautions for 6 weeks Awaiting placement at 1947 at 1000 RPT #:[id number] OF REPORTPRProgress [id number]:46:[id number] Available for patient [id number]:48:00 [facility] 2022-07-24 18:29:00 [id number]:29:00 [facility] ([facility])Rehab Progress NoteREPORT#:[id number] REPORT STATUS: SignedDATE:07/24/22 TIME: 1828 PATIENT: SHERRI ARCE UNIT #: [id number]#: [id number] [address] [birth year] AGE: 81 SEX: M ATTEND: Srinath Kaur AUTHOR: Florencia Washburn NP * ALL edits or amendments must be made on the electronic/computer document * SubjectiveChief complaint:Rehab follow-upDenies pain or sobPleasantDenies NAIK/N/V/D/CP14 systems reviewed and neg. except that above. Objective GeneralVS:Vital Signs: Date Time Temp Pulse Resp B/P B/P Pulse O2 O2 Flow FiO2 Mean Ox Delivery Rate 07/24 1636 [...] 96 Room air PATIENT WEIGHT: Weight (lb): 187Weight (oz): 9.81Weight (kg): 85.100 Medications:Active Meds + DC'd Last 24 HrsMidodrine (PROAMATINE) 5 MG 0900,1300,1700 PRN PO Sodium Chloride (SODIUM CHLORIDE) 10 ML ASDIR IV Amiodarone HCl (CORDARONE) 200 MG BID PO Ipratropium [place] (ATROVENT) 500 MCG RTQ2H PRN PRN INH Lactulose (LACTULOSE) 20 GM DAILY PRN PRN PO Cyanocobalamin (Vitamin B-12 500 mcg tab) 500 MCG DAILY PO Ferrous Sulfate (FERROUS SULFATE) 325 [...] (Senna Lax 8.6 MG TABLET) 17.2 MG BEDTIME PO Ipratropium [place] (ATROVENT) 500 MCG RTQ4H INH Acetaminophen (TYLENOL) 650 MG Q4H PRN PRN PO Acetaminophen (TYLENOL) 650 MG Q4H PRN PRN RECTAL Dextrose/Water (DEXTROSE 10% IN WATER) 125 ML ASDIR PRN IV (CKD) Dextrose/Water (DEXTROSE 10% IN WATER) 250 ML ASDIR PRN IV (CKD) Glucagon (GLUCAGON) 1 MG ASDIR PRN IM Magnesium Sulfate (MAGNESIUM SULFATE 4GM/SWFI 100ML) 100 ML ASDIR PRN IV Magnesium Sulfate (MAGNESIUM SULFATE 2GM/SWFI 50ML) 50 ML ASDIR PRN IV Magnesium Sulfate/Dextrose (MAGNESIUM SULFATE 1GM/D5W 100ML) 100 ML ASDIR PRN IV Ondansetron HCl (ZOFRAN) 4 MG Q6H PRN PRN IV Albumin Human (ALBUMINAR-25%) 12.5 GM ASDIR PRN IV Heparin Sodium (Porcine) (HEPARIN SODIUM) 3,000 UNIT ASDIR PRN DIALYSIS Lidocaine HCl (LIDOCAINE HCL/PF) 0.5 ML ASDIR PRN I-DERMAL (CKD) Mannitol (Mannitol 20%) 12.5 GM ASDIR PRN IV Sodium Chloride (SODIUM CHLORIDE 0.9%) 2,000 ML ASDIR PRN IV Tamsulosin HCl (Flomax 0.4 mg) 0.4 MG BEDTIME PO Functional ProgressFunctional progress:The data set between the solid lines has been imported from multidisciplinary team documentation. FUNCTIONAL ACTIVITY ADMISSION STATUS INTERIM STATUS Toilet hygiene Toilet transfer Eating Shower/bathing Dressing upper body Dressing lower body Transfer to/from bed to chair Wheel 50ft w/ 2 turns Wheel 150 ft Walk 50 ft w/ 2 turns Walk 150 ft Four steps Physical ExamGeneral appearance: alert, awakePsych: alert, oriented x 3HEENT: anicteric, sclera clearNeck: supple, no JVDCardiovascular: regular rate rhythm, S1/F8Haunpxbuasu: aerating well, clear bilaterallyAbdomen: bowel sounds present, non-distended, softSkin: intact, no rashMusculoskeletal - general: Musculoskeletal - general: joints normal, normal muscle mass, normal toneNeuro/GIFT OFFICER: alert, oriented X 3, CNII-XII intact Diagnosis, Assessment PlanFree Text A P:dNon-STEMIMultivessel CADS/p CABG w1Ffivgxdk deconditioningImpaired mobility and gaitPostoperative anemiaDyslipidemiaHypertensionAKIAcute systolic heart failureHemodynamic issues postopLeukocytosis trending downPleural effusion and atelectasis Plan:Continue PT/OTOut of bed to chairWork on strength, bed mobility, transfers, gaitSternal precautionIncrease enduranceFall precautionsMonitor p.o. intake and nutritionStrict decubitus precautionsMonitor anemia. Persistent left pneumothorax. IR guided pigtail place. CXR shows expansion of the lung Urology consulted -Pt on FlomaxNephrology managing renal issues and elevated K+Utilize IS to reduce atelectasisAdvance therapies as toleratedPt lives alone and has 5 to 6 stairs to enter houseSNF order has been placed. Will require insurance approval for SNF, dialysis clinic acceptance, approval for [facility] prior to discharge SNF waiting for inservice on LIfe vest Ambulating 500ft SPV NO DME Total time was 35 minutes > 50% with patient performing physical examination, discussing plan of care, goals, therapies, progress, medications, labs, SNF. All questions answeredRehab attestation:Face to face exam completed. Treatment plan discussed with patient. at 1940 RPT #:[id number] OF REPORTPRProgress [id number]:29:[id number] Available for patient [id number]:41:02 [facility] 2022-07-24 12:00:00 [id number]:00:00 [facility] ([facility])Hospitalist Progress NoteREPORT#:[id number] REPORT STATUS: SignedDATE:07/24/22 TIME: 1200 PATIENT: SHERRI ARCE UNIT #: [id number]#: [id number] [address] [birth year] AGE: 81 SEX: M ATTEND: [place] DOADM AUTHOR: Jesus Larson MD * ALL edits or amendments must be made on the electronic/computer document * SubjectiveChief complaint:no cp. no sob. Objective GeneralVS/I O:Vital Signs: Date Time Temp Pulse Resp B/P B/P Pulse O2 O2 Flow FiO2 Mean Ox Delivery Rate 07/24 0702 [...] scale Measurement Method PATIENT WEIGHT: Weight (lb): 187Weight (oz): 9.81Weight (kg): 85.100 Physical ExamGeneral appearance: alert, awakeHead/Eyes: atraumatic, EOMI, normal conjunctiva/sclera, normocephalic, PERRLAENT: moist mucosal membranesNeck: no JVDCardiovascular: normal heart sounds, regular rate rhythmRespiratory: aerating well, clear to auscultation, symmetric expansion, no distressAbdomen: non-tender, normal bowel sounds, soft, no distention, no guarding, no reboundGenitourinary: urinary catheterExtremities: no edemaMusculoskeletal: normal inspectionNeuro/GIFT OFFICER: normal speech, no motor deficits, no sensory deficitsSkin: intact, normal color, no rashPsychiatry: normal affect ResultsRadiology data:Laboratory Tests 07/24/22 0449:[Embedded Image Not Available] 07/23/22 0425:[Embedded Image Not Available] Current Medications Sig/Earl Start time LastMedication Dose Route Stop Time Status AdminMidodrine 5 MG 0900,1300,1700 PRN 07/17 2100 AC 07/24 PO 08/16 2058 1004Sodium Chloride 10 ML ASDIR 07/17 1030 AC IV 08/16 1029Amiodarone HCl 200 MG BID 07/16 09 AC 07/24 PO 08/15 0859 1005Ipratropium [place] 500 MCG RTQ2H PRN PRN 07/11 1821 AC 07/10 INH 08/10 1820 1302Lactulose 20 GM DAILY PRN PRN 07/11 1245 AC 07/11 PO 08/10 1244 1411Cyanocobalamin 500 MCG DAILY 07/11 09 AC 07/24 PO 08/10 0859 1004Ferrous Sulfate 325 MG DAILY 07/11 09 AC 07/24 PO 08/10 0859 1005Bisacodyl 10 MG ONCE PRN 07/10 1200 AC 07/11 RECTAL 08/09 1159 0928Atorvastatin Calcium 40 MG 2100 07/09 2099 AC 07/23 PO 08/08 205 2044Clopidogrel Bisulfate 75 MG DAILY 07/09 09 AC 07/24 PO 08/08 0859 1004Polyethylene Glycol 17 GM DAILY 07/09 09 AC 07/24 PO 08/08 0859 1008Pantoprazole 40 MG DAILY@0600 07/09 0600 AC 07/24 PO 08/08 0559 0610Aspirin 81 MG DAILY 07/09 0020 AC 07/24 PO 08/08 0019 1004Docusate Sodium 100 MG BID 07/08 2100 AC 07/24 PO 08/07 2058 1008Sennosides 17.2 MG BEDTIME 07/08 2100 AC 07/22 PO 08/07 205 2054Ipratropium [place] 500 MCG RTQ4H 07/08 1900 AC 07/24 INH 08/07 1859 0926Acetaminophen 650 MG Q4H PRN PRN 07/08 1830 AC 07/24 PO 08/07 1829 1005Acetaminophen 650 MG Q4H PRN PRN 07/08 1830 AC RECTAL 08/07 1829Dextrose/Water 125 ML ASDIR PRN 07/08 1830 CKD IV 08/07 1829Dextrose/Water 250 ML ASDIR PRN 07/08 1830 CKD IV 08/07 1829Glucagon 1 MG ASDIR PRN 07/08 1830 AC IM 08/07 1829Magnesium Sulfate 100 ML ASDIR PRN 07/08 1830 AC IV 08/07 1829Magnesium Sulfate 50 ML ASDIR PRN 07/08 1830 AC 07/21 IV 08/07 1829 1034Magnesium Sulfate/ 100 ML ASDIR PRN 07/08 1830 AC 07/16Dextrose IV 08/07 1829 0650Ondansetron HCl 4 MG Q6H PRN PRN 07/08 1830 AC IV 08/07 1829Albumin Human 12.5 GM ASDIR PRN 07/03 1200 AC 07/10 IV 08/03 1155 1327Heparin Sodium 3,000 UNIT ASDIR PRN 07/03 1200 AC 07/23 (Porcine) DIALYSIS 08/02 1159 0927Lidocaine HCl 0.5 ML ASDIR PRN 07/03 1200 CKD I-DERMAL 08/03 1155Mannitol 12.5 GM ASDIR PRN 07/03 1200 AC IV 08/03 1155Sodium Chloride 2,000 ML ASDIR PRN 07/03 1200 AC 07/23 IV 08/03 1155 0926Tamsulosin HCl 0.4 MG BEDTIME 07/02 2144 AC 07/23 PO 08/01 Laboratory Tests: 07/24 07/24 0449 [...] (Auto) (14.0 - 32.0 %) 9.8 L Starke % (Auto) (4.8 - 9.0 %) 8.7 Eos % (Auto) (0.3 - 3.7 %) 11.0 H Baso % (Auto) (0.0 - 2.0 %) 1.0 Neut # (Auto) (2.0 - 7.6 x10 3/uL) 7.17 Lymph # (Auto) (1.0 - 3.8 x10 3/uL) 1.02 Starke # (Auto) (0.1 - 0.8 x10 3/uL) 0.90 H Eos # (Auto) (0.0 - 0.2 x10 3/uL) 1.14 H Baso # (Auto) (0.0 - 0.2 x10 3/uL) 0.10 Abs Immat Gran (auto) (0.00 - 0.03 x10 3/uL) 0.07 H Add Manual Diff NO Immature Gran % (0.0 - 2.0 %) 0.7 Nucleated RBC % (0 - 0 %) 0.0 Nucleated RBCs # (Man) (0.0 - 0.1 x10 3/uL) 0.00 Microbiology:07/24 0500 NASAL: MRSA DNA Surveillance Screen - ORD Treatment Prophylaxis Treatment ProphylaxisDrain(s)/tube(s): Drain(s)/tube(s): chest Diagnosis, Assessment PlanConsultants: cardiology, cardiovascular surgery, nephrology Free Text DxA P NotesFree text DxA P notes:NSTEMI, CAD (coronary artery disease), S/P CABG X 5 ON 07/08- STABLE, CARD/CTS SEEN, TX TO SNF ON THURSDAY, EF 30-35% patient presented with NSTEMI and found to hve severe CAD. Cardiac cath shows: Left Main - Distal 70% LAD - Proximal 80% with another 60% and 70% lessions Cir - Proximal 80%,mid 80-90%, Distal 70% and OM 60% RCA - large dominant with proximal 40%, Mid 60%. Echo: ef 30-34%, mod hypokinesis of entire myocardium, grade 1 diastolic dysfunction Patient on ASA, plavix, BB and Statin on amiodarone, Beta-tomas as tolerated for low BP, Acute systolic heart failure - STABLE, NO CHARLY/BB DUE TO LOW BP, ON MIDODRINE PRN, EF 30-35% Echocardiac with estimated LVEF of 30 to 34% with grade 1 diastolic dysfunction-s/p Lasix 20 mg twice daily 07/05 -on metoprolol 12.5 mg bid on hold now, BP low-no ACEI/ spironolactione for CLAUDETTE-Start GDMT prior to discharge-Await LifeVest2 - LIFEVEST at bedside. CLAUDETTE (acute kidney injury) DUE TO POST-OBS NEPHROPATHY - ON HD MWF, RENAL/UROL SEEN, NEEDS SNF WITH DIALYSIS ACCESS, CONT WATERS, FLOMAX, ABLE BODIED TANKERMAN FROM 7.0 TO 4.3 No prior Hx of renal disease. hx of BPH and treated with Fosamax w/o improvement nd continue to have difficulty urinating. On admission was found to be on acute renal filaure and had received HD twice prior to arrival here (thursday and thursday). 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 BPH (benign prostatic hyperplasia) - ABOVE, ON WATERS Started on Flomax at the previous hospital, will continue with it. Waters catheter in place, continue Waters catheter as per nephrology 07/05 Goiter Hx of Goiter and surgical resection. TSH 3.33, within normal limits. Patient is not on Thyroid medication. RXT LEUKOCYTOSIS - STABLE, NO INFECTION DEBILITY - OT/PT SEEN, SNF TX SOON UTI continue Rocephin for empiric treatment pending results of urine culture No growth for 48 hours DVT prophylaxis: Heparin 5000 units every 8 hoursDiet: Cardiac dietCODE STATUS: Full code Disposition: Status post CABG x5 on 07/09, hemodialysis as per nephrology. Worked with PT in his room, on 2 L oxygen via nasal cannula. PT/OT on board. Await LifeVest and SNF placement 07/22- awaiting SNF. lifevest arranged.07/23 stable, awaiting SNF placement07/24- awaiting SNF Quality: Gen Med Crit Care VTE ProphylaxisVTE prophylaxis initiated: yes Advanced Care Plan 65 or OlderDiscussed with: patientDiscussion included: living will (none), power of school commissioner (none), code status (full code) at 1201 RPT #:[id number] OF REPORTPRProgress [id number]:00:[id number] Available for patient [id number]:01:41 [facility] 2022-07-24 11:48:00 [id number]:00 [facility] ([facility])Nephrology Progress NoteREPORT#:[id number] REPORT STATUS: SignedDATE:07/24/22 TIME: 1148 PATIENT: SHERRI ARCE UNIT #: [id number]#: [id number] ROOM[facility]ED[facility]DOB: [birth year] AGE: 81 SEX: M ATTEND: Los Crawford DOADM AUTHOR: Evelina Plaza MD * ALL edits or amendments must be made on the electronic/computer document * SubjectiveChief complaint:Feeling okay and has no complaints at this time. Objective GeneralVS/I O:Vital Signs: Date Time Temp Pulse Resp B/P [...] scale Measurement Method PATIENT WEIGHT: Weight (lb): 187Weight (oz): 9.81Weight (kg): 85.100 MedicationsActive Meds + DC'd Last 24 HrsMidodrine (PROAMATINE) 5 MG 0900,1300,1700 PRN PO Sodium Chloride (SODIUM CHLORIDE) 10 ML ASDIR IV Amiodarone HCl (CORDARONE) 200 MG BID PO Ipratropium [place] (ATROVENT) 500 MCG RTQ2H PRN PRN INH Lactulose (LACTULOSE) 20 GM DAILY PRN PRN PO Cyanocobalamin (Vitamin B-12 500 mcg tab) 500 MCG DAILY PO Ferrous Sulfate (FERROUS SULFATE) 325 [...] (Senna Lax 8.6 MG TABLET) 17.2 MG BEDTIME PO Ipratropium [place] (ATROVENT) 500 MCG RTQ4H INH Acetaminophen (TYLENOL) 650 MG Q4H PRN PRN PO Acetaminophen (TYLENOL) 650 MG Q4H PRN PRN RECTAL Dextrose/Water (DEXTROSE 10% IN WATER) 125 ML ASDIR PRN IV (CKD) Dextrose/Water (DEXTROSE 10% IN WATER) 250 ML ASDIR PRN IV (CKD) Glucagon (GLUCAGON) 1 MG ASDIR PRN IM Magnesium Sulfate (MAGNESIUM SULFATE 4GM/SWFI 100ML) 100 ML ASDIR PRN IV Magnesium Sulfate (MAGNESIUM SULFATE 2GM/SWFI 50ML) 50 ML ASDIR PRN IV Magnesium Sulfate/Dextrose (MAGNESIUM SULFATE 1GM/D5W 100ML) 100 ML ASDIR PRN IV Ondansetron HCl (ZOFRAN) 4 MG Q6H PRN PRN IV Albumin Human (ALBUMINAR-25%) 12.5 GM ASDIR PRN IV Heparin Sodium (Porcine) (HEPARIN SODIUM) 3,000 UNIT ASDIR PRN DIALYSIS Lidocaine HCl (LIDOCAINE HCL/PF) 0.5 ML ASDIR PRN I-DERMAL (CKD) Mannitol (Mannitol 20%) 12.5 GM ASDIR PRN IV Sodium Chloride (SODIUM CHLORIDE 0.9%) 2,000 ML ASDIR PRN IV Tamsulosin HCl (Flomax 0.4 mg) 0.4 MG BEDTIME PO Physical ExamGeneral appearance: alert, awakeHead/eyes: atraumatic, normocephalicENT: moist mucous membranes, normal noseNeck: non-tender, no JVDCardiovascular: regular rate and rhythmRespiratory: clear to auscultationAbdomen: non-tender, softGenitourinary: no bladder distentionExtremities: no edema, no swellingNeuro/GIFT OFFICER: alert, oriented X 3, normal speechSkin: dry, intact ResultsFindings/Data:Laboratory Tests 07/24 07/24 0449 0449 Chemistry Sodium [...] (Auto) (14.0 - 32.0 %) 9.8 L Starke % (Auto) (4.8 - 9.0 %) 8.7 Eos % (Auto) (0.3 - 3.7 %) 11.0 H Baso % (Auto) (0.0 - 2.0 %) 1.0 Neut # (Auto) (2.0 - 7.6 x10 3/uL) 7.17 Lymph # (Auto) (1.0 - 3.8 x10 3/uL) 1.02 Starke # (Auto) (0.1 - 0.8 x10 3/uL) 0.90 H Eos # (Auto) (0.0 - 0.2 x10 3/uL) 1.14 H Baso # (Auto) (0.0 - 0.2 x10 3/uL) 0.10 Abs Immat Gran (auto) (0.00 - 0.03 x10 3/uL) 0.07 H Add Manual Diff NO Immature Gran % (0.0 - 2.0 %) 0.7 Nucleated RBC % (0 - 0 %) 0.0 Nucleated RBCs # (Man) (0.0 - 0.1 x10 3/uL) 0.00 Treatment Prophylaxis Treatment ProphylaxisDrain(s)/tube(s): Drain(s)/tube(s): chest Diagnosis, Assessment PlanFree Text A P:Assessment:1-CLAUDETTE likely from urinary retention with underlying CKD. oliguric CLAUDETTE now post op, and shock. 2- non-STEMI: multivessel disease w main left. S/P CABG X5 on - BPH. Waetrs catheter is in place.4-severe bilateral hydronephrosis5- shock : Cardiogenic resolved. 6-hyperlipidemia7- AGMA resolved. Plan:- unknown Scr baseline.-will be getting HD MWF here. Tolerated HD yesterday with UF 1 L. Still has excellent urine output volume. - Ultrasound showed severe bilateral hydronephrosis and medical renal disease. Urology seen and recommended Waters catheter when discharged home with Flomax, and outpatient follow-up.- He underwent LHC on 07/03. - Started on HD on 07/04. - s/p CABG X5 on 07/08-TDC placed 07/15. -still has residual renal function with Adequate urine output volume but no clearance.-Obtain 24 cr cl 7 ml/min. Pending placement arrangement. Consultants: cardiology, cardiovascular surgery, nephrology at 1409 RPT #:[id number] OF REPORTPRProgress [id number]:48:[id number] Available for patient [id number]:11:49 [facility] 2022-07-24 08:38:00 [id number]:38:00 [facility] ([facility])Cardiology Progress NoteREPORT#:[id number] REPORT STATUS: SignedDATE:07/24/22 TIME: 0838 PATIENT: SHERRI ARCE UNIT #: [id number]#: [id number] ROOM/BED: 3354-1DOB: [birth year] AGE: 81 SEX: M ATTEND: Jesus Larson [facility] AUTHOR: Jyoti Browning NP * ALL edits or amendments must be made on the electronic/computer document * SubjectiveChief complaint:Doing okay. Objective GeneralVS/I O:Laboratory Tests 07/24/22 0449:[Embedded Image Not Available] 07/23/22 0425:[Embedded Image Not Available]Current Medications Sig/Earl Start time LastMedication Dose Route Stop Time Status AdminMidodrine 5 MG 0900,1300,1700 PRN 07/17 2100 AC 07/24 PO 08/16 2058 1004Sodium Chloride 10 ML ASDIR 07/17 1030 AC IV 08/16 1029Amiodarone HCl 200 MG BID 07/16 0900 AC 07/24 PO 08/15 0859 1005Ipratropium [place] 500 MCG RTQ2H PRN PRN 07/11 1821 AC 07/10 INH 08/10 1820 1302Lactulose 20 GM DAILY PRN PRN 07/11 1245 AC 07/11 PO 08/10 1244 1411Cyanocobalamin 500 MCG DAILY 07/11 09 AC 07/24 PO 08/10 0859 1004Ferrous Sulfate 325 MG DAILY 07/11 09 AC 07/24 PO 08/10 0859 1005Bisacodyl 10 MG ONCE PRN 07/10 1200 AC 07/11 RECTAL 08/09 1159 0928Atorvastatin Calcium 40 MG 2100 07/09 2100 AC 07/23 PO 08/08 205 2044Clopidogrel Bisulfate 75 MG DAILY 07/09 0900 AC 07/24 PO 08/08 0859 1004Polyethylene Glycol 17 GM DAILY 07/09 0900 AC 07/24 PO 08/08 0859 1008Pantoprazole 40 MG DAILY@0600 07/09 0600 AC 07/24 PO 08/08 0559 0610Aspirin 81 MG DAILY 07/09 0020 AC 07/24 PO 08/08 0019 1004Docusate Sodium 100 MG BID 07/08 2100 AC 07/24 PO 08/07 2058 1008Sennosides 17.2 MG BEDTIME 07/08 2100 AC 07/22 PO 08/07 205 2054Ipratropium [place] 500 MCG RTQ4H 07/08 1900 AC 07/24 INH 08/07 1859 0926Acetaminophen 650 MG Q4H PRN PRN 07/08 1830 AC 07/24 PO 08/07 1829 1005Acetaminophen 650 MG Q4H PRN PRN 07/08 1830 AC RECTAL 08/07 1829Dextrose/Water 125 ML ASDIR PRN 07/08 1830 CKD IV 08/07 1829Dextrose/Water 250 ML ASDIR PRN 07/08 1830 CKD IV 08/07 1829Glucagon 1 MG ASDIR PRN 07/08 1830 AC IM 08/07 1829Magnesium Sulfate 100 ML ASDIR PRN 07/08 1830 AC IV 08/07 1829Magnesium Sulfate 50 ML ASDIR PRN 07/08 1830 AC 07/21 IV 08/07 1829 1034Magnesium Sulfate/ 100 ML ASDIR PRN 07/08 1830 AC 07/16Dextrose IV 08/07 1829 0650Ondansetron HCl 4 MG Q6H PRN PRN 07/08 1830 AC IV 08/07 1829Albumin Human 12.5 GM ASDIR PRN 07/03 1200 AC 07/10 IV 08/03 1155 1327Heparin Sodium 3,000 UNIT ASDIR PRN 07/03 1200 AC 07/23 (Porcine) DIALYSIS 08/02 1159 0927Lidocaine HCl 0.5 ML ASDIR PRN 07/03 1200 CKD I-DERMAL 08/03 1155Mannitol 12.5 GM ASDIR PRN 07/03 1200 AC IV 08/03 1155Sodium Chloride 2,000 ML ASDIR PRN 07/03 1200 AC 07/23 IV 08/03 1155 0926Tamsulosin HCl 0.4 MG BEDTIME 07/02 2145 AC 07/23 PO 08/01 2144 2045 24 hour I O ending at [...] Flow FiO2 Mean Ox Delivery Rate 07/24 07 36.6 84 18 106/62 76.2 94 07/24 0421 36.7 84 13 117/60 0.0 92 Room air 07/23 2347 36.8 86 13 115/57 0.0 94 Room air 07/23 2034 95 Room air 07/23 2030 36.8 85 13 123/58 0.0 96 Room air 07/23 1655 36.4 93 22 112/58 0.0 99 07/23 1139 36.7 82 22 116/57 0.0 95 PATIENT WEIGHT: Weight (lb): 187Weight (oz): 9.81Weight (kg): 85.100 Status post:07/08/22 CABG x 5 (MISTRY-LAD, SVG-Ladonna, SVG-OM1< SVG-OM3, SVG-PDA) ALAA Physical ExamGeneral appearance: alert, awake, oriented, no acute distress, pleasantHead/Eyes: atraumaticENT: moist mucosal membranesNeck: no JVDCardiovascular: CV assessment: regular rate and rhythm, no murmurRespiratory: decreased breath sounds, no distressAbdomen: soft, non-tender, normal bowel sounds, no distention, no guardingUpper extremity: UE assessment: normal temperature, no edemaLower extremity: LE assessment: normal temperature, no edemaMusculoskeletal: normal inspectionNeuro/GIFT OFFICER: alert, oriented X 3, normal speechSkin: dryPsychiatry: normal affect Diagnosis, Assessment PlanProblem List/A P: 1. HTN (hypertension) 2. CLAUDETTE (acute kidney injury) 3. CAD (coronary artery disease) 4. Dyslipidemia 5. BPH (benign prostatic hyperplasia) Free Text DxA P NotesFree Text DxA P Notes:Mr. Arce is a pleasant 81 y/o M w/ PMHx: HTN, HLD presented to [facility] on 06/28/22 for chest pain and sob. He was diagnosed NSTEMI. LHC showed multivessel CAD. Transferred to [facility] for CABG. 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 urology consulted for bladded outlet obstruction and hydronephrosis, started on Flomax HD per nephro - HTN. bp stable, midodrine as needed - HLD. On statins. - Anemia. monitor Patient has been doing well.CM working on discharge arrangements at 1111 at 0859 RPT #:[id number] OF REPORTPRProgress [id number]:38:[id number] Available for patient [id number]:12 [facility] 2022-07-23 19:00:00 [id number]:00:00 [facility] ([facility])Rehab Progress NoteREPORT#:[id number] REPORT STATUS: SignedDATE:07/23/22 TIME: 1900 PATIENT: SHERRI ACRE UNIT #: [id number]#: [id number] [address] [birth year] AGE: 81 SEX: M ATTEND: Los Crawford DOADM AUTHOR: Florencia Washburn PREMIUM CARD CANCELLATION CLERK * ALL edits or amendments must be made on the electronic/computer document * SubjectiveChief complaint:Rehab follow-upDenies pain or sobPleasantDenies NAIK/N/V/D/CP14 systems reviewed and neg. except that above. Objective GeneralVS:Vital Signs: Date Time Temp Pulse Resp B/P B/P Pulse O2 O2 Flow FiO2 Mean Ox Delivery Rate 07/23 1655 [...] 97 Room air PATIENT WEIGHT: Weight (lb): 188Weight (oz): 7.92Weight (kg): 85.500 Medications:Active Meds + DC'd Last 24 HrsMidodrine (PROAMATINE) 5 MG 0900,1300,1700 PRN PO Sodium Chloride (SODIUM CHLORIDE) 10 ML ASDIR IV Amiodarone HCl (CORDARONE) 200 MG BID PO Ipratropium [place] (ATROVENT) 500 MCG RTQ2H PRN PRN INH Lactulose (LACTULOSE) 20 GM DAILY PRN PRN PO Cyanocobalamin (Vitamin B-12 500 mcg tab) 500 MCG DAILY PO Ferrous Sulfate (FERROUS SULFATE) 325 [...] (Senna Lax 8.6 MG TABLET) 17.2 MG BEDTIME PO Ipratropium [place] (ATROVENT) 500 MCG RTQ4H INH Acetaminophen (TYLENOL) 650 MG Q4H PRN PRN PO Acetaminophen (TYLENOL) 650 MG Q4H PRN PRN RECTAL Dextrose/Water (DEXTROSE 10% IN WATER) 125 ML ASDIR PRN IV (CKD) Dextrose/Water (DEXTROSE 10% IN WATER) 250 ML ASDIR PRN IV (CKD) Glucagon (GLUCAGON) 1 MG ASDIR PRN IM Magnesium Sulfate (MAGNESIUM SULFATE 4GM/SWFI 100ML) 100 ML ASDIR PRN IV Magnesium Sulfate (MAGNESIUM SULFATE 2GM/SWFI 50ML) 50 ML ASDIR PRN IV Magnesium Sulfate/Dextrose (MAGNESIUM SULFATE 1GM/D5W 100ML) 100 ML ASDIR PRN IV Ondansetron HCl (ZOFRAN) 4 MG Q6H PRN PRN IV Albumin Human (ALBUMINAR-25%) 12.5 GM ASDIR PRN IV Heparin Sodium (Porcine) (HEPARIN SODIUM) 3,000 UNIT ASDIR PRN DIALYSIS Lidocaine HCl (LIDOCAINE HCL/PF) 0.5 ML ASDIR PRN I-DERMAL (CKD) Mannitol (Mannitol 20%) 12.5 GM ASDIR PRN IV Sodium Chloride (SODIUM CHLORIDE 0.9%) 2,000 ML ASDIR PRN IV Tamsulosin HCl (Flomax 0.4 mg) 0.4 MG BEDTIME PO Physical ExamGeneral appearance: alert, awakePsych: alert, oriented x 3HEENT: anicteric, sclera clearNeck: supple, no JVDCardiovascular: regular rate rhythm, S1/G8Qkadjulnayw: aerating well, clear bilaterallyAbdomen: bowel sounds present, non-distended, softSkin: intact, no rashMusculoskeletal - general: Musculoskeletal - general: joints normal, normal muscle mass, normal toneNeuro/GIFT OFFICER: alert, oriented X 3, CNII-XII intact ResultsFindings/Data:Laboratory Tests: 07/23 07/23 0425 0425 Chemistry Sodium [...] (Auto) (14.0 - 32.0 %) 8.3 L Starke % (Auto) (4.8 - 9.0 %) 8.2 Eos % (Auto) (0.3 - 3.7 %) 10.8 H Baso % (Auto) (0.0 - 2.0 %) 0.8 Neut # (Auto) (2.0 - 7.6 x10 3/uL) 8.26 H Lymph # (Auto) (1.0 - 3.8 x10 3/uL) 0.96 L Starke # (Auto) (0.1 - 0.8 x10 3/uL) 0.95 H Eos # (Auto) (0.0 - 0.2 x10 3/uL) 1.25 H Baso # (Auto) (0.0 - 0.2 x10 3/uL) 0.09 Abs Immat Gran (auto) (0.00 - 0.03 x10 3/uL) 0.10 H Add Manual Diff NO Immature Gran % (0.0 - 2.0 %) 0.9 Nucleated RBC % (0 - 0 %) 0.0 Nucleated RBCs # (Man) (0.0 - 0.1 x10 3/uL) 0.00 Diagnosis, Assessment PlanFree Text A P:Non-STEMIMultivessel CADS/p CABG b4Qgwdidqe deconditioningImpaired mobility and gaitPostoperative anemiaDyslipidemiaHypertensionAKIAcute systolic heart failureHemodynamic issues postopLeukocytosis trending downPleural effusion and atelectasis Plan:Continue PT/OTOut of bed to chairWork on strength, bed mobility, transfers, gaitSternal precautionIncrease enduranceFall precautionsMonitor p.o. intake and nutritionStrict decubitus precautionsMonitor anemia. Persistent left pneumothorax. IR guided pigtail place. CXR shows expansion of the lung Urology consulted -Pt on FlomaxNephrology managing renal issues and elevated K+Utilize IS to reduce atelectasisAdvance therapies as toleratedPt lives alone and has 5 to 6 stairs to enter houseSNF order has been placed. Will require insurance approval for SNF, dialysis clinic acceptance, approval for LifeVest prior to discharge SNF waiting for inservice on LIfe vest Ambulating 500ft SPV NO DME Total time was 35 minutes > 50% with patient performing physical examination, discussing plan of care, goals, therapies, progress, medications, labs, SNF. All questions answeredRehab attestation:Face to face exam completed. Treatment plan discussed with patient. at 1902 RPT #:[id number] OF REPORTPRProgress [id number]:00:[id number] Available for patient [id number]:19 [facility] 2022-07-23 14:47:00 [id number] [facility] ([facility])Hospitalist Progress NoteREPORT#:[id number] REPORT STATUS: SignedDATE:07/23/22 TIME: 1447 PATIENT: SHERRI ARCE UNIT #: [id number]#: [id number] [address] [birth year] AGE: 81 SEX: M ATTEND: Los Crawford DOADM AUTHOR: Los Crawford DO * ALL edits or amendments must be made on the electronic/computer document * SubjectiveChief complaint:No new complaints Objective GeneralVS/I O:Vital Signs: Date Time Temp Pulse Resp B/P B/P Pulse O2 O2 Flow FiO2 Mean Ox Delivery Rate 07/23 1139 [...] scale Measurement Method PATIENT WEIGHT: Weight (lb): 188Weight (oz): 7.92Weight (kg): 85.500 Physical ExamGeneral appearance: alert, awake, orientedHead/Eyes: atraumatic, EOMI, normal conjunctiva/sclera, normocephalic, PERRLAENT: moist mucosal membranesNeck: no JVDCardiovascular: normal heart sounds, regular rate rhythmRespiratory: aerating well, clear to auscultation, symmetric expansion, no distressAbdomen: non-tender, normal bowel sounds, soft, no distention, no guarding, no reboundGenitourinary: urinary catheterExtremities: no edemaMusculoskeletal: normal inspectionNeuro/GIFT OFFICER: normal speech, no motor deficits, no sensory deficitsSkin: intact, normal color, no rashPsychiatry: normal affect Treatment Prophylaxis Treatment ProphylaxisDrain(s)/tube(s): Drain(s)/tube(s): chest Diagnosis, Assessment PlanConsultants: cardiology, cardiovascular surgery, nephrology Free Text DxA P NotesFree text DxA P notes:NSTEMI, CAD (coronary artery disease), S/P CABG X 5 ON 07/08- STABLE, CARD/CTS SEEN, TX TO SNF ON THURSDAY, EF 30-35% patient presented with NSTEMI and found to hve severe CAD. Cardiac cath shows: Left Main - Distal 70% LAD - Proximal 80% with another 60% and 70% lessions Cir - Proximal 80%,mid 80-90%, Distal 70% and OM 60% RCA - large dominant with proximal 40%, Mid 60%. Echo: ef 30-34%, mod hypokinesis of entire myocardium, grade 1 diastolic dysfunction Patient on ASA, plavix, BB and Statin on amiodarone, Beta-tomas as tolerated for low BP, Acute systolic heart failure - STABLE, NO CHARLY/BB DUE TO LOW BP, ON MIDODRINE PRN, EF 30-35% Echocardiac with estimated LVEF of 30 to 34% with grade 1 diastolic dysfunction-s/p Lasix 20 mg twice daily 07/05 -on metoprolol 12.5 mg bid on hold now, BP low-no ACEI/ spironolactione for CLAUDETTE-Start GDMT prior to discharge-Await LifeVes - LIFEVEST at bedside. CLAUDETTE (acute kidney injury) DUE TO POST-OBS NEPHROPATHY - ON HD MWF, RENAL/UROL SEEN, NEEDS SNF WITH DIALYSIS ACCESS, CONT WATERS, FLOMAX, ABLE BODIED TANKERMAN FROM 7.0 TO 4.3 No prior Hx of renal disease. hx of BPH and treated with Fosamax w/o improvement nd continue to have difficulty urinating. On admission was found to be on acute renal filaure and had received HD twice prior to arrival here (thursday and thursday). 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 BPH (benign prostatic hyperplasia) - ABOVE, ON WATERS Started on Flomax at the previous hospital, will continue with it. Waters catheter in place, continue Waters catheter as per nephrology 07/05 Goiter Hx of Goiter and surgical resection. TSH 3.33, within normal limits. Patient is not on Thyroid medication. RXT LEUKOCYTOSIS - STABLE, NO INFECTION DEBILITY - OT/PT SEEN, SNF TX SOON UTI continue Rocephin for empiric treatment pending results of urine culture No growth for 48 hours DVT prophylaxis: Heparin 5000 units every 8 hoursDiet: Cardiac dietCODE STATUS: Full code Disposition: Status post CABG x5 on 07/09, hemodialysis as per nephrology. Worked with PT in his room, on 2 L oxygen via nasal cannula. PT/OT on board. Await LifeVest and SNF placement 07/22- awaiting SNF. lifevest arranged.07/23 stable, awaiting SNF placement Quality: Gen Med Crit Care VTE ProphylaxisVTE prophylaxis initiated: yes Advanced Care Plan 65 or OlderDiscussed with: patientDiscussion included: living will (none), power of school commissioner (none), code status (full code) at 1448 RPT #:[id number] OF REPORTPRProgress [id number]:47:[id number] Available for patient [id number]:49:41 [facility] 2022-07-23 10:28:00 [id number]:00 [facility] ([facility])Cardiothoracic Surgery ProgREPORT#:[id number] REPORT STATUS: SignedDATE:07/23/22 TIME: 1028 PATIENT: SHERRI ARCE UNIT #: [id number]#: [id number] [address] AGE: 81 SEX: M ATTEND: Srinath Kaur [facility] AUTHOR: Rosalind Toribio 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 Allergy/Immun:Denies: allergic reaction. Respiratory:Denies: SOB. Cardiovascular:Denies: chest pain, palpitations. GI:Denies: abdominal pain, nausea, vomiting. :Denies: dysuria, hematuria. Heme:Denies: bleeding. Neuro:Denies: dizziness, headache, vision change. All systems rev neg: except as marked Objective GeneralVS/I OLast Documented: Result Date Time Pulse Ox 93 02/15 0943 O2 Delivery Room air 07/23 942 B/P 94/50 07/23 826 B/P Mean 0.0 07/23 826 Temp 97.3 07/23 826 Pulse 91 07/23 826 Resp 22 07/23 826 FiO2 21 07/21 2034 O2 Flow Rate 3 07/14 1151 24 hour I O ending at 0700: 07/23 0700 07/22 1900 Intake Total 3870 Output Total 800 1600 Balance -800 2270 Intake, Oral 3870 Number 1 Bowel Movements Output, Urine 800 1600 Patient 188 lb Weight Weight Standing scale Measurement Method PATIENT WEIGHT: Weight (lb): 188Weight (oz): 7.92Weight (kg): 85.500 Physical ExamGeneral appearance: alert, oriented, mental status normal, no respiratory distressWound/incision: Location:sternal Site condition: edges approximated, incision intact, no drainage, no ecchymosis, no erythemaHEENT: anicteric, mucosal membranes moistNeck: supple/no meningismusCardiovascular: normal heart sounds, regular rate rhythmRespiratory: aerating well, symmetric expansion, no distressAbdomen: soft, non-tender, no distentionGenitourinary: foleyExtremities: moves allNeuro/GIFT OFFICER: alert, oriented X 3, normal speech, no motor deficitsPsychiatry: normal affect, normal mood Current MedicationsMedications:Active Meds + DC'd Last 24 HrsMidodrine (PROAMATINE) 5 MG 0900,1300,1700 PRN PO Sodium Chloride (SODIUM CHLORIDE) 10 ML ASDIR IV Amiodarone HCl (CORDARONE) 200 MG BID PO Ipratropium [place] (ATROVENT) 500 MCG RTQ2H PRN PRN INH Lactulose (LACTULOSE) 20 GM DAILY PRN PRN PO Cyanocobalamin (Vitamin B-12 500 mcg tab) 500 MCG DAILY PO Ferrous Sulfate (FERROUS SULFATE) 325 [...] (Senna Lax 8.6 MG TABLET) 17.2 MG BEDTIME PO Ipratropium [place] (ATROVENT) 500 MCG RTQ4H INH Acetaminophen (TYLENOL) 650 MG Q4H PRN PRN PO Acetaminophen (TYLENOL) 650 MG Q4H PRN PRN RECTAL Dextrose/Water (DEXTROSE 10% IN WATER) 125 ML ASDIR PRN IV (CKD) Dextrose/Water (DEXTROSE 10% IN WATER) 250 ML ASDIR PRN IV (CKD) Glucagon (GLUCAGON) 1 MG ASDIR PRN IM Magnesium Sulfate (MAGNESIUM SULFATE 4GM/SWFI 100ML) 100 ML ASDIR PRN IV Magnesium Sulfate (MAGNESIUM SULFATE 2GM/SWFI 50ML) 50 ML ASDIR PRN IV Magnesium Sulfate/Dextrose (MAGNESIUM SULFATE 1GM/D5W 100ML) 100 ML ASDIR PRN IV Ondansetron HCl (ZOFRAN) 4 MG Q6H PRN PRN IV Albumin Human (ALBUMINAR-25%) 12.5 GM ASDIR PRN IV Heparin Sodium (Porcine) (HEPARIN SODIUM) 3,000 UNIT ASDIR PRN DIALYSIS Lidocaine HCl (LIDOCAINE HCL/PF) 0.5 ML ASDIR PRN I-DERMAL (CKD) Mannitol (Mannitol 20%) 12.5 GM ASDIR PRN IV Sodium Chloride (SODIUM CHLORIDE 0.9%) 2,000 ML ASDIR PRN IV Tamsulosin HCl (Flomax 0.4 mg) 0.4 MG BEDTIME PO ResultsFindings/Data:Laboratory Tests 07/23 07/23 0425 0425 Chemistry Sodium [...] (Auto) (14.0 - 32.0 %) 8.3 L Starke % (Auto) (4.8 - 9.0 %) 8.2 Eos % (Auto) (0.3 - 3.7 %) 10.8 H Baso % (Auto) (0.0 - 2.0 %) 0.8 Neut # (Auto) (2.0 - 7.6 x10 3/uL) 8.26 H Lymph # (Auto) (1.0 - 3.8 x10 3/uL) 0.96 L Starke # (Auto) (0.1 - 0.8 x10 3/uL) 0.95 H Eos # (Auto) (0.0 - 0.2 x10 3/uL) 1.25 H Baso # (Auto) (0.0 - 0.2 x10 3/uL) 0.09 Abs Immat Gran (auto) (0.00 - 0.03 x10 3/uL) 0.10 H Add Manual Diff NO Immature Gran % (0.0 - 2.0 %) 0.9 Nucleated RBC % (0 - 0 %) 0.0 Nucleated RBCs # (Man) (0.0 - 0.1 x10 3/uL) 0.00 Treatment Prophylaxis Treatment ProphylaxisDrain(s)/tube(s): Drain(s)/tube(s): chest Quality: Trauma Gen Surg Advanced Care Plan 65 or OlderDiscussed with: patientDiscussion included: living will (none), power of school commissioner (none), code status (full code) Diagnosis, Assessment PlanHospital course to date:This is a 81-year-old gentleman who presented to an outside hospital with complaints of chest pains while walking at his home on Thursday. He denies any previous history of coronary artery disease or other [place]. He was seen and evaluated at [facility]. He was found to have a urinary tract infection with urinary retention and acute kidney. He was started on dialysis via a left femoral temporary catheter. He underwent dialysis on Thursday, Thursday. Renal has been consultedDuring his work-up at outside hospital he underwent Left heart catheterization showing severe Left Main 70%. LAD: Proximal diffuse 80% stenosis and then diffuse 60% in the midsegment and on the distal segment, there is focal 70% stenosis. Diagonal branches with luminal irregularities. Left circumflex, codominant circulation with proximal 80%, mid 80 to 90% and then in the OM, there is proximal 60%, distal left circumflex has a 70% stenosis. RCA large and dominant with proximal 40% stenosis, mid 60% stenosis and then diffuse 50% stenosis all the way distally and the PLV and the PDA with luminal irregularities. CV surgery consulted for evaluation for coronary bypass graft. CAROTIDS- No carotid stenosis CT chest complete IMPRESSION: Small bilateral pleural effusions with bibasilar atelectasis. Echo:1. Left ventricle: The cavity size is at the upper limits of normal. Wall thickness is mildly increased. Systolic function is severely reduced. The estimated ejection fraction is 30-34%. Moderate hypokinesis of the entire myocardium. Doppler parameters are consistent with abnormal left ventricular relaxation (grade 1 diastolic dysfunction).2. Pericardium, extracardiac: A small pericardial effusion is identified along the left ventricular free wall, along the right ventricular free wall, and along the right atrial free wall. Assessment/Plan1) CAD Mutlivessel Will obtain echo,carotids. 2) CLAUDETTE Started dialysis on Creatine 7.3 Renal consulted. 3) BPH- Urinary retention. Waters in place Workup for CABG underway. Will get functional assessment with PT. PFT pending Carotid dopplers- No disease Echo PendingDialyiss per Renal. Baseline Cr unknown. 07/04 07/04 Doing well today, alert, up in the chair. Denies chest painEchocardiogram showed LVEF 30 to 34%, mild MR, trivial TRCT chest images reviewedEncourage I-S and mobilizationCreatinine 5.5 from 7.3, good urine output. Renal US showed bilateral severe hydronephrosis. Plan for HD today and tomorrow Will tentatively schedule patient for surgery on Thursday.Patient seen and plan reviewed with Dr Schwarz 07/05 Remains in a stable condition, denies chest pain BUN 53, creatinine 5.4. Plan for hemodialysis today and tomorrow for clearanceHe is also on Lasix 20 mg IV twice daily, urine output 1.1 L overnightWe will calculate risk of surgery with STS scoreEncourage I-S and mobilizationWill tentatively schedule patient for surgery on Thursday.Pt seen and plan reviewed with Dr Schwarz 07/06 BUN 36, creatinine 4.4. Plan for hemodialysis todayAwaiting CABG tomorrowSurgery, risks involved, STS score, benefits, complications and alternatives were explained to the patient. He acknowledged understanding and is willing to proceedN.p.o. after midnightPatient seen and plan reviewed with Dr. Schwarz 07/09/22OUMOU 1CABG x 5 (MISTRY-LAD, SVG-Ladonna, SVG-OM1< SVG-OM3, SVG-PDA), ALAA, EVH (RGSV)Patient hemodynamically unstable, on epi at 4, and vaso .04, decreased uop overnight- 150ccStarted patient on CRRT 2k/3.5Wean epi as tolerated, Cardiac incex 2.8-3labs and chest x-ray reviewed, electrolytes stable, hgb 6.5- transfuse 2 units PRBCOn 4l nasal cannula- encourage incentive spirometer and deep breathingKeep both chest tubes and monitor outputsGlycemic control on insulin dripCardiac dietBowel regimen protocolPain managementSCDs for DVT and PPI for GI prophylaxisPT/OTMonitor patient closely in CVICUPlan of care discussed with Dr. Schwarz 07/10/22OMUOU 2Patient alert, awake, and oriented, no distres notedlabs and CXR reviewed stableBreathing comfortably on 3l nasal cannula- wean as tolerated to melissa O2 sats > 92%Encourage I-S use and deep breathingOn CRRT- able to remove 2.9L overnight- nephrology followingCardiac index 3.1- wean off epi dripKeep chest tubes for now and monitor outputsTransition to sliding scale insulin- cardiac dietTry to get patient out of bed to chair today- ambulate with PT/OTSCDs for DVT prophylaxisKeep patient in CVICU for close monitoring 07/11/22 3Patient in stable condition, overnight events noted- decreased urine output 35 ml last night-started on dopamine gtt for renal perfusionCardiac index 3.5- epi currently at 2- will discontinue today, vasopressin at 0.02, added low dose midodrine 2.5 mg TID, repeat echocardiogram.Renal Following- trial LasixPatient has Left femoral temp dialysis cath, Will need tunneled dialysis IJ cathplaced if need dialysis. On 5l nasal cannula- wean off as tolerated, encourage incentive spirometer and deep breathingKeep left pleural chest tube and monitor output- > 200 cc Tolerating diet, bowel regimen protocolPT/OT- patient out of bed to chair today- encourage ambulationDVT prophylaxis with SCDsMonitor patient closely in CVICUPlan discussed with multidisciplinary teamPlan discussed with Dr Schwarz/ Dr Rodríguez 07/12/22PO 5,Patient resting comfortable. Patient with hx of urinary retention- After standing today- voided 1.4 L. Needs Urology consult for retention K 5.4- HD in progress. Dr Plaza following. CT output 20- DC today. Pacers remain in place. Patient has Left femoral temp dialysis cath, Re-evaluate on Thursday if fpc dialysis needed. Card: Remains in sinus rhythm. Respir: on 7 L NC O2 95%Dispo: Rehab consultedPatient seen and exmained by Dr Rodríguez. Plan discussed with Team 07/13/22 5Patient with no new complaints. Recieved HD yesterday.Requiring less oxygen, now on 3l nasal cannula- continue to wean offCXR reviewed left apical pneumothorax 4cm/30%, Chest tube drained 140 overnight,placed back on suction to clear pneumo, CT drianed 200cc this AM. on suction. Labs reviewed- stable, decreased WBC, hgb stable, CR 3.9Eating welll, +BMUO- 550CC, BP improved on midodrine. Continue PT/OT, ambulation and incentive spirometer useRehab folowing Monitor in ICU todayDisucssed with Dr Schwarz- DC femoral line and Central line today. DC art line. Will re-eval need for dialysis cath Thursday. Consider tunnelled cath if need.Patient seen and examined by Dr Rodríguez. Plan discussed with Care team. 07/14POD 6Patient in stable condition, no distress notedRemains on room air, O2 sats > 92%, encourage I-S use and deep breathingCXR shows moderate left apical pneumothorax unchangedCT remained on suction, no airleak noConsult IR for pigtail chest tube placement this morningCardiac/renal dietLabs reviewed- K 5.1- repeat labs K 4.8Nephrology followingContinue therapy with PT/OTFollow up with urology for waters catheter- Dr Harris consulted.Monitor in CVICUPlan of care discussed with Dr Schwarz and multidisciplinary team 07/15/22POD 7Patient alert, awake, and oriented, no distress, no complaints at this timeBreathing comfortable on room airCXR shows resolved pneumothoraxLP and pigtail chest tube- no air leak noted, minimal output from LP 40 overnightLabs reviewed, K 5.2- corrected, follow up with nephrology to discuss need for dialysisTrend labs this afternoonBowel regimen, +gasFoley catheter discontinued per urology- voiding trial this AMAmbulation and incentive spirometer use encouragedDVT prophylaxis with SCDsKeep in ICU DISP: SNF- Case management Discussed plan of care with multidisciplinary team and Dr. Schwarz 3POD 8Patient doing well, alert, awake, and orientedO2 sats 93% on room air, encourage I-SCXR stable- no pneumo notedLeft pigtail chest tube - no air leak, clamped this morning, repeat CXRPlacement of tunneled dialysis catheter (BioFlo DuraMax 28 cm) yesterdayHD treatment done yesterday evening, plan for HD treatment today per nephrologyPatient failed voiding trial, waters catheter replaced- follow up with urologyEating wellContinue PT/OT- ambulationTransfer to CV 1 intermediate care unitDischarge planning for SNF- CM following and to set up dialysis chairPatient seen with Dr. Schwarz and discussed plan of care with multidisciplinary team. 07/17/22Patient in stable condition, no complaintsLabs and CXR reviewed- stableLeft pigtail chest tube discontinued yesterday- no pneumo notedRemains on room air, no distress- I-S encouragedCardiac diet, +BMKeep waters per urology f/u outpt, continue flomaxHD per nephrology- CM to setup outpt dialysis chairAwaiting bed availability on CV 1Discharge planning- SNFPlan of care discussed with multidisciplinary team and Dr. Schwarz. 07/18 Patient in stable condition, no complaintsRemains on room air, no distress- I-S encouragedEpicardial pacing wires discontinued. Limited echo to rule out pericardial effusionKeep waters per urology f/u outpt, continue flomaxHD per nephrology- CM to setup outpt dialysis chairDischarge planning- SNFPlan of care discussed with multidisciplinary team and Dr. Schwarz. 07/19 No new eventsEchocardiogram done, report pendingHD per nephrology- CM to setup outpt dialysis chairWaiting insurance approval for shelter facilityPatient seen and plan reviewed with Dr. Schwarz 07/20 Remains in a stable condition.Echocardiogram showed LVEF 30 to 34%, trivial pericardial effusionHD schedule per nephrologyAwaiting insurance approval for SNF 07/21 No complaints todayHD schedule per nephrologyAwaiting insurance approval for SNFEncourage I-S and mobilization 07/22 Remains in stable conditionContinue current management.Aspirin, Plavix, statin. Did not tolerate metoprolol, on midodrine 5 mg 3 timesdailyWBCs trending downAwaiting insurance approval for SNF 07/23 No new events Hemodialysis this mornning Hemodynamically stable, sinus rhythm 80sAwaiting placement Consultants: cardiology, cardiovascular surgery, nephrology at 1102 at 1002 RPT #:[id number] OF REPORTPRProgress [id number]:28:[id number] Available for patient [id number]:02:27 [facility] 2022-07-23 10:21:00 [id number]:21:00 [facility]inteCard[facility] Progress NoteREPORT#:[id number] REPORT STATUS: SignedDATE:07/23/22 TIME: 1021 PATIENT: SHERRI ARCE UNIT #: [id number]#: [id number] ROOM/BED: 3354-1DOB: [birth year] AGE: 81 SEX: M ATTEND: Jesus Larson MDADM AUTHOR: Sonya Stacy * ALL edits or amendments must be made on the electronic/computer document * SubjectivePatient reports:No: complaints. Objective GeneralVS/I O:24 hour I O ending at 0700: 07/23 0700 07/22 1900 Intake Total 3870 Output Total 800 1600 Balance -800 2270 Intake, Oral 3870 Number 1 Bowel Movements Output, Urine 800 1600 Patient 85.5 kg Weight Weight Standing scale Measurement Method Vital Signs: Date Time Temp Pulse Resp B/P B/P Pulse O2 O2 Flow FiO2 Mean Ox Delivery Rate 07/23 0943 [...] 108/60 76 94 PATIENT WEIGHT: Weight (lb): 188Weight (oz): 7.92Weight (kg): 85.500 Medications:Active Meds + DC'd Last 24 HrsMidodrine (PROAMATINE) 5 MG 0900,1300,1700 PRN PO Sodium Chloride (SODIUM CHLORIDE) 10 ML ASDIR IV Amiodarone HCl (CORDARONE) 200 MG BID PO Ipratropium [place] (ATROVENT) 500 MCG RTQ2H PRN PRN INH Lactulose (LACTULOSE) 20 GM DAILY PRN PRN PO Cyanocobalamin (Vitamin B-12 500 mcg tab) 500 MCG DAILY PO Ferrous Sulfate (FERROUS SULFATE) 325 [...] (Senna Lax 8.6 MG TABLET) 17.2 MG BEDTIME PO Ipratropium [place] (ATROVENT) 500 MCG RTQ4H INH Acetaminophen (TYLENOL) 650 MG Q4H PRN PRN PO Acetaminophen (TYLENOL) 650 MG Q4H PRN PRN RECTAL Dextrose/Water (DEXTROSE 10% IN WATER) 125 ML ASDIR PRN IV (CKD) Dextrose/Water (DEXTROSE 10% IN WATER) 250 ML ASDIR PRN IV (CKD) Glucagon (GLUCAGON) 1 MG ASDIR PRN IM Magnesium Sulfate (MAGNESIUM SULFATE 4GM/SWFI 100ML) 100 ML ASDIR PRN IV Magnesium Sulfate (MAGNESIUM SULFATE 2GM/SWFI 50ML) 50 ML ASDIR PRN IV Magnesium Sulfate/Dextrose (MAGNESIUM SULFATE 1GM/D5W 100ML) 100 ML ASDIR PRN IV Ondansetron HCl (ZOFRAN) 4 MG Q6H PRN PRN IV Albumin Human (ALBUMINAR-25%) 12.5 GM ASDIR PRN IV Heparin Sodium (Porcine) (HEPARIN SODIUM) 3,000 UNIT ASDIR PRN DIALYSIS Lidocaine HCl (LIDOCAINE HCL/PF) 0.5 ML ASDIR PRN I-DERMAL (CKD) Mannitol (Mannitol 20%) 12.5 GM ASDIR PRN IV Sodium Chloride (SODIUM CHLORIDE 0.9%) 2,000 ML ASDIR PRN IV Tamsulosin HCl (Flomax 0.4 mg) 0.4 MG BEDTIME PO Physical ExamGeneral appearance: alert, awakeHead/Eyes: atraumaticENT: moist mucosal membranesNeck: no JVDCardiovascular: CV assessment: regular rate and rhythm, no murmurRespiratory: decreased breath sounds, no distressAbdomen: soft, non-tender, normal bowel sounds, no distention, no guardingUpper extremity: UE assessment: normal temperature, no edemaLower extremity: LE assessment: normal temperature, no edemaMusculoskeletal: normal inspectionNeuro/GIFT OFFICER: alert, oriented X 3, normal speechSkin: dryPsychiatry: normal affect ResultsFindings/Data:Laboratory Tests 07/23 0425 Chemistry Sodium (134 - [...] (Auto) (14.0 - 32.0 %) 8.3 L Starke % (Auto) (4.8 - 9.0 %) 8.2 Eos % (Auto) (0.3 - 3.7 %) 10.8 H Baso % (Auto) (0.0 - 2.0 %) 0.8 Neut # (Auto) (2.0 - 7.6 x10 3/uL) 8.26 H Lymph # (Auto) (1.0 - 3.8 x10 3/uL) 0.96 L Starke # (Auto) (0.1 - 0.8 x10 3/uL) 0.95 H Eos # (Auto) (0.0 - 0.2 x10 3/uL) 1.25 H Baso # (Auto) (0.0 - 0.2 x10 3/uL) 0.09 Abs Immat Gran (auto) (0.00 - 0.03 x10 3/uL) 0.10 H Add Manual Diff NO Immature Gran % (0.0 - 2.0 %) 0.9 Nucleated RBC % (0 - 0 %) 0.0 Nucleated RBCs # (Man) (0.0 - 0.1 x10 3/uL) 0.00 Laboratory Tests 07/23 0425 Chemistry Magnesium (1.80 - 2.40 mg/dL) 2.00 Results: labs reviewed, vital signs reviewed, rhythm personally rev'dTelemetry Interpretation:Sinus rhythm Diagnosis, Assessment PlanPlan discussed with: patient, nurse Free Text DxA P NotesFree Text DxA P Notes:Mr. Arce is a pleasant 81 y/o M w/ PMHx: HTN, HLD presented to [facility] on 06/28/22 for chest pain and sob. He was diagnosed NSTEMI. LHC showed multivessel CAD. Transferred to [facility] for CABG. 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 urology consulted for bladded outlet obstruction and hydronephrosis, started on Flomax HD per nephro - HTN. bp stable, midodrine as needed - HLD. On statins. - Anemia. monitor Patient has been doing well.Waiting for dialysis chair and SNF acceptance at 1606 at 0859 RPT #:[id number] OF REPORTPRProgress [id number]:21:[id number] Available for patient [id number]:06:56 [facility] 2022-07-23 08:30:00 [id number]:30:00 [facility] ([facility])Nephrology Progress NoteREPORT#:[id number] REPORT STATUS: SignedDATE:07/23/22 TIME: 08 PATIENT: SHERRI ARCE UNIT #: [id number]#: [id number] [address]: [birth year] AGE: 81 SEX: M ATTEND: Los Crawford DOADM AUTHOR: Evelina Plaza MD * ALL edits or amendments must be made on the electronic/computer document * SubjectiveChief complaint:Feeling okay and has no complaints at this time. Objective GeneralVS/I O:Vital Signs: Date Time Temp Pulse Resp B/P B/P Pulse O2 O2 Flow FiO2 Mean Ox Delivery Rate 07/23 1655 [...] scale Measurement Method PATIENT WEIGHT: Weight (lb): 188Weight (oz): 7.92Weight (kg): 85.500 Physical ExamGeneral appearance: alert, awake, orientedHead/eyes: atraumatic, normocephalicENT: moist mucous membranes, normal noseNeck: non-tender, no JVDCardiovascular: regular rate and rhythmRespiratory: clear to auscultationAbdomen: non-tender, softGenitourinary: no bladder distentionExtremities: no edema, no swellingNeuro/GIFT OFFICER: alert, oriented X 3, normal speechSkin: dry, intact ResultsFindings/Data:Laboratory Tests 07/23 0425 Chemistry Sodium (134 - [...] (Auto) (14.0 - 32.0 %) 8.3 L Starke % (Auto) (4.8 - 9.0 %) 8.2 Eos % (Auto) (0.3 - 3.7 %) 10.8 H Baso % (Auto) (0.0 - 2.0 %) 0.8 Neut # (Auto) (2.0 - 7.6 x10 3/uL) 8.26 H Lymph # (Auto) (1.0 - 3.8 x10 3/uL) 0.96 L Starke # (Auto) (0.1 - 0.8 x10 3/uL) 0.95 H Eos # (Auto) (0.0 - 0.2 x10 3/uL) 1.25 H Baso # (Auto) (0.0 - 0.2 x10 3/uL) 0.09 Abs Immat Gran (auto) (0.00 - 0.03 x10 3/uL) 0.10 H Add Manual Diff NO Immature Gran % (0.0 - 2.0 %) 0.9 Nucleated RBC % (0 - 0 %) 0.0 Nucleated RBCs # (Man) (0.0 - 0.1 x10 3/uL) 0.00 Treatment Prophylaxis Treatment ProphylaxisDrain(s)/tube(s): Drain(s)/tube(s): chest Diagnosis, Assessment PlanFree Text A P:Assessment:1-CLAUDETTE likely from urinary retention with underlying CKD. oliguric CLAUDETTE now post op, and shock. 2- non-STEMI: multivessel disease w main left. S/P CABG X5 on - BPH. Waters catheter is in place.4-severe bilateral hydronephrosis5- shock : Cardiogenic resolved. 6-hyperlipidemia7- AGMA resolved. Plan:- unknown Scr baseline.-will be getting HD MWF here. Seen during HD today- Ultrasound showed severe bilateral hydronephrosis and medical renal disease. Urology seen and recommended Waters catheter when discharged home with Flomax, and outpatient follow-up.- He underwent LHC on 07/03. - Started on HD on 07/04. - s/p CABG X5 on 07/08-TDC placed 07/15. -still has residual renal function with Adequate urine output volume but no clearance.-Obtain 24 cr cl 7 ml/min. stble from nephrology for discharge to [facility] Consultants: cardiology, cardiovascular surgery, nephrology at 1703 RPT #:[id number] OF REPORTPRProgress [id number]:30:[id number] Available for patient [id number]:04:00 [facility] 2022-07-22 21:28:00 [id number]:28:00 [facility] ([facility])Nephrology Progress NoteREPORT#:[id number] REPORT STATUS: SignedDATE:07/22/22 TIME: 2127 PATIENT: SHERRI ARCE UNIT #: [id number]#: [id number] [address] [birth year] AGE: 81 SEX: M ATTEND: Los Crawford DOADM AUTHOR: Evelina Plaza MD * ALL edits or amendments must be made on the electronic/computer document * SubjectiveChief complaint:Feeling okay and has no complaints at this time. Objective GeneralVS/I O:Vital Signs: Date Time Temp Pulse Resp B/P B/P Pulse O2 O2 Flow FiO2 Mean Ox Delivery Rate 07/23 0827 [...] scale Measurement Method PATIENT WEIGHT: Weight (lb): 188Weight (oz): 7.92Weight (kg): 85.500 MedicationsActive Meds + DC'd Last 24 HrsMidodrine (PROAMATINE) 5 MG 0900,1300,1700 PRN PO Sodium Chloride (SODIUM CHLORIDE) 10 ML ASDIR IV Amiodarone HCl (CORDARONE) 200 MG BID PO Ipratropium [place] (ATROVENT) 500 MCG RTQ2H PRN PRN INH Lactulose (LACTULOSE) 20 GM DAILY PRN PRN PO Cyanocobalamin (Vitamin B-12 500 mcg tab) 500 MCG DAILY PO Ferrous Sulfate (FERROUS SULFATE) 325 [...] (Senna Lax 8.6 MG TABLET) 17.2 MG BEDTIME PO Ipratropium [place] (ATROVENT) 500 MCG RTQ4H INH Acetaminophen (TYLENOL) 650 MG Q4H PRN PRN PO Acetaminophen (TYLENOL) 650 MG Q4H PRN PRN RECTAL Dextrose/Water (DEXTROSE 10% IN WATER) 125 ML ASDIR PRN IV (CKD) Dextrose/Water (DEXTROSE 10% IN WATER) 250 ML ASDIR PRN IV (CKD) Glucagon (GLUCAGON) 1 MG ASDIR PRN IM Magnesium Sulfate (MAGNESIUM SULFATE 4GM/SWFI 100ML) 100 ML ASDIR PRN IV Magnesium Sulfate (MAGNESIUM SULFATE 2GM/SWFI 50ML) 50 ML ASDIR PRN IV Magnesium Sulfate/Dextrose (MAGNESIUM SULFATE 1GM/D5W 100ML) 100 ML ASDIR PRN IV Ondansetron HCl (ZOFRAN) 4 MG Q6H PRN PRN IV Albumin Human (ALBUMINAR-25%) 12.5 GM ASDIR PRN IV Heparin Sodium (Porcine) (HEPARIN SODIUM) 3,000 UNIT ASDIR PRN DIALYSIS Lidocaine HCl (LIDOCAINE HCL/PF) 0.5 ML ASDIR PRN I-DERMAL (CKD) Mannitol (Mannitol 20%) 12.5 GM ASDIR PRN IV Sodium Chloride (SODIUM CHLORIDE 0.9%) 2,000 ML ASDIR PRN IV Tamsulosin HCl (Flomax 0.4 mg) 0.4 MG BEDTIME PO Physical ExamHead/eyes: atraumatic, normocephalicENT: moist mucous membranes, normal noseNeck: non-tender, no JVDCardiovascular: regular rate and rhythmRespiratory: clear to auscultationAbdomen: non-tender, softGenitourinary: no bladder distentionExtremities: no edema, no swellingNeuro/GIFT OFFICER: alert, oriented X 3, normal speechSkin: dry, intact Treatment Prophylaxis Treatment ProphylaxisDrain(s)/tube(s): Drain(s)/tube(s): chest Diagnosis, Assessment PlanFree Text A P:Assessment:1-CLAUDETTE likely from urinary retention with underlying CKD. oliguric CLAUDETTE now post op, and shock. 2- non-STEMI: multivessel disease w main left. S/P CABG X5 on - BPH. Waters catheter is in place.4-severe bilateral hydronephrosis5- shock : Cardiogenic resolved. 6-hyperlipidemia7- AGMA resolved. Plan:- unknown Scr baseline.-will be getting HD MWF here. HD in am. - Ultrasound showed severe bilateral hydronephrosis and medical renal disease. Urology seen and recommended Waters catheter when discharged home with Flomax, and outpatient follow-up.- He underwent LHC on 07/03. - Started on HD on 07/04. - s/p CABG X5 on 07/08-TDC placed 07/15. -still has residual renal function with Adequate urine output volume but no clearance.-Obtain 24 cr cl 7 ml/min. stble from nephrology for discharge to [facility] Consultants: cardiology, cardiovascular surgery, nephrology at 0830 RPT #:[id number] OF REPORTPRProgress [id number]:28:[id number] Available for patient [id number]:40:09 HCACL 2022-07-22 17:40:00 [id number]:40:00 [facility] ([facility])Rehab Progress NoteREPORT#:[id number] REPORT STATUS: SignedDATE:07/22/22 TIME: 1740 PATIENT: SHERRI ARCE UNIT #: [id number]#: [id number] [address] [birth year] AGE: 81 SEX: M ATTEND: [place] DOADM AUTHOR: Florencia Washburn PREMIUM CARD CANCELLATION CLERK * ALL edits or amendments must be made on the electronic/computer document * SubjectiveChief complaint:Rehab follow-upDenies pain or sobPleasantDenies NAIK/N/V/D/CP14 systems reviewed and neg. except that above. Objective GeneralVS:Vital Signs: Date Time Temp Pulse Resp B/P B/P Pulse O2 O2 Flow FiO2 Mean Ox Delivery Rate 07/22 1600 [...] 92 Room air PATIENT WEIGHT: Weight (lb): 191Weight (oz): 9.31Weight (kg): 86.900 Medications:Active Meds + DC'd Last 24 HrsMidodrine (PROAMATINE) 5 MG 0900,1300,1700 PRN PO Sodium Chloride (SODIUM CHLORIDE) 10 ML ASDIR IV Amiodarone HCl (CORDARONE) 200 MG BID PO Ipratropium [place] (ATROVENT) 500 MCG RTQ2H PRN PRN INH Lactulose (LACTULOSE) 20 GM DAILY PRN PRN PO Cyanocobalamin (Vitamin B-12 500 mcg tab) 500 MCG DAILY PO Ferrous Sulfate (FERROUS SULFATE) 325 [...] (Senna Lax 8.6 MG TABLET) 17.2 MG BEDTIME PO Ipratropium [place] (ATROVENT) 500 MCG RTQ4H INH Acetaminophen (TYLENOL) 650 MG Q4H PRN PRN PO Acetaminophen (TYLENOL) 650 MG Q4H PRN PRN RECTAL Dextrose/Water (DEXTROSE 10% IN WATER) 125 ML ASDIR PRN IV (CKD) Dextrose/Water (DEXTROSE 10% IN WATER) 250 ML ASDIR PRN IV (CKD) Glucagon (GLUCAGON) 1 MG ASDIR PRN IM Magnesium Sulfate (MAGNESIUM SULFATE 4GM/SWFI 100ML) 100 ML ASDIR PRN IV Magnesium Sulfate (MAGNESIUM SULFATE 2GM/SWFI 50ML) 50 ML ASDIR PRN IV Magnesium Sulfate/Dextrose (MAGNESIUM SULFATE 1GM/D5W 100ML) 100 ML ASDIR PRN IV Ondansetron HCl (ZOFRAN) 4 MG Q6H PRN PRN IV Albumin Human (ALBUMINAR-25%) 12.5 GM ASDIR PRN IV Heparin Sodium (Porcine) (HEPARIN SODIUM) 3,000 UNIT ASDIR PRN DIALYSIS Lidocaine HCl (LIDOCAINE HCL/PF) 0.5 ML ASDIR PRN I-DERMAL (CKD) Mannitol (Mannitol 20%) 12.5 GM ASDIR PRN IV Sodium Chloride (SODIUM CHLORIDE 0.9%) 2,000 ML ASDIR PRN IV Tamsulosin HCl (Flomax 0.4 mg) 0.4 MG BEDTIME PO Physical ExamGeneral appearance: alert, awakePsych: alert, oriented x 3HEENT: anicteric, sclera clearNeck: supple, no JVDCardiovascular: regular rate rhythm, S1/V1Zivpkigrkcz: aerating well, clear bilaterallyAbdomen: bowel sounds present, non-distended, softSkin: intact, no rashMusculoskeletal - general: Musculoskeletal - general: joints normal, normal muscle mass, normal toneNeuro/GIFT OFFICER: alert, oriented X 3, CNII-XII intact ResultsFindings/Data:Laboratory Tests: 07/22 07/22 1692 2803 Chemistry Sodium (134 - 147 mEq/L) 143 [...] (Auto) (14.0 - 32.0 %) 7.3 L Starke % (Auto) (4.8 - 9.0 %) 6.8 Eos % (Auto) (0.3 - 3.7 %) 8.6 H Baso % (Auto) (0.0 - 2.0 %) 0.7 Neut # (Auto) (2.0 - 7.6 x10 3/uL) 10.21 H Lymph # (Auto) (1.0 - 3.8 x10 3/uL) 0.99 L Starke # (Auto) (0.1 - 0.8 x10 3/uL) 0.92 H Eos # (Auto) (0.0 - 0.2 x10 3/uL) 1.17 H Baso # (Auto) (0.0 - 0.2 x10 3/uL) 0.10 Abs Immat Gran (auto) (0.00 - 0.03 x10 3/uL) 0.14 H Add Manual Diff NO Immature Gran % (0.0 - 2.0 %) 1.0 Nucleated RBC % (0 - 0 %) 0.0 Nucleated RBCs # (Man) (0.0 - 0.1 x10 3/uL) 0.00 Diagnosis, Assessment PlanFree Text A P:Non-STEMIMultivessel CADS/p CABG v3Prxlwcgg deconditioningImpaired mobility and gaitPostoperative anemiaDyslipidemiaHypertensionAKIAcute systolic heart failureHemodynamic issues postopLeukocytosis trending downPleural effusion and atelectasis Plan:Continue PT/OTOut of bed to chairWork on strength, bed mobility, transfers, gaitSternal precautionIncrease enduranceFall precautionsMonitor p.o. intake and nutritionStrict decubitus precautionsMonitor anemia. Persistent left pneumothorax. IR guided pigtail place. CXR shows expansion of the lung Urology consulted -Pt on FlomaxNephrology managing renal issues and elevated K+Utilize IS to reduce atelectasisAdvance therapies as toleratedPt lives alone and has 5 to 6 stairs to enter houseSNF order has been placed. Will require insurance approval for SNF, dialysis clinic acceptance, approval for [facility] prior to discharge Ambulating 500ft SPV NO DME Total time was 33 minutes > 50% with patient performing physical examination, discussing plan of care, goals, therapies, progress, medications, labs, SNF. All questions answeredRehab attestation:Face to face exam completed. Treatment plan discussed with patient. at 174 RPT #:[id number] OF REPORTPRProgress [id number]:40:[id number] Available for patient [id number]:42:09 HCACL 2022-07-22 14:24:00 [id number]:24:00 [facility] ([facility])Cardiothoracic Surgery ProgREPORT#:[id number] REPORT STATUS: SignedDATE:07/22/22 TIME: 1424 PATIENT: SHERRI ARCE UNIT #: [id number]#: [id number] [place] [facility] [place]DOB: [birth year] AGE: 81 SEX: M ATTEND: Srinath Kaur [facility] AUTHOR: Rosalind Toribio 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 Allergy/Immun:Denies: allergic reaction. Respiratory:Denies: SOB. Cardiovascular:Denies: chest pain, palpitations. GI:Denies: abdominal pain, nausea, vomiting. :Denies: dysuria, hematuria. Heme:Denies: bleeding. Neuro:Denies: dizziness, headache, vision change. All systems rev neg: except as marked Objective GeneralVS/I OLast Documented: Result Date Time Pulse Ox 94 [...] scale Measurement Method PATIENT WEIGHT: Weight (lb): 191Weight (oz): 9.31Weight (kg): 86.900 Physical ExamGeneral appearance: alert, orientedWound/incision: Location:sternal Site condition: edges approximated, incision intact, no drainage, no ecchymosis, no erythemaHEENT: anicteric, mucosal membranes moistNeck: supple/no meningismusCardiovascular: normal heart sounds, regular rate rhythmRespiratory: aerating well, symmetric expansion, no distressAbdomen: soft, non-tender, no distentionGenitourinary: foleyExtremities: moves allNeuro/GIFT OFFICER: alert, oriented X 3, normal speech, no motor deficitsPsychiatry: normal affect, normal mood Current MedicationsMedications:Active Meds + DC'd Last 24 HrsMidodrine (PROAMATINE) 5 MG 0900,1300,1700 PRN PO Sodium Chloride (SODIUM CHLORIDE) 10 ML ASDIR IV Amiodarone HCl (CORDARONE) 200 MG BID PO Ipratropium [place] (ATROVENT) 500 MCG RTQ2H PRN PRN INH Lactulose (LACTULOSE) 20 GM DAILY PRN PRN PO Cyanocobalamin (Vitamin B-12 500 mcg tab) 500 MCG DAILY PO Ferrous Sulfate (FERROUS SULFATE) 325 [...] (Senna Lax 8.6 MG TABLET) 17.2 MG BEDTIME PO Ipratropium [place] (ATROVENT) 500 MCG RTQ4H INH Acetaminophen (TYLENOL) 650 MG Q4H PRN PRN PO Acetaminophen (TYLENOL) 650 MG Q4H PRN PRN RECTAL Dextrose/Water (DEXTROSE 10% IN WATER) 125 ML ASDIR PRN IV (CKD) Dextrose/Water (DEXTROSE 10% IN WATER) 250 ML ASDIR PRN IV (CKD) Glucagon (GLUCAGON) 1 MG ASDIR PRN IM Magnesium Sulfate (MAGNESIUM SULFATE 4GM/SWFI 100ML) 100 ML ASDIR PRN IV Magnesium Sulfate (MAGNESIUM SULFATE 2GM/SWFI 50ML) 50 ML ASDIR PRN IV Magnesium Sulfate/Dextrose (MAGNESIUM SULFATE 1GM/D5W 100ML) 100 ML ASDIR PRN IV Ondansetron HCl (ZOFRAN) 4 MG Q6H PRN PRN IV Albumin Human (ALBUMINAR-25%) 12.5 GM ASDIR PRN IV Heparin Sodium (Porcine) (HEPARIN SODIUM) 3,000 UNIT ASDIR PRN DIALYSIS Lidocaine HCl (LIDOCAINE HCL/PF) 0.5 ML ASDIR PRN I-DERMAL (CKD) Mannitol (Mannitol 20%) 12.5 GM ASDIR PRN IV Sodium Chloride (SODIUM CHLORIDE 0.9%) 2,000 ML ASDIR PRN IV Tamsulosin HCl (Flomax 0.4 mg) 0.4 MG BEDTIME PO ResultsFindings/Data:Laboratory Tests 07/225 0315 Chemistry Sodium (134 - [...] (1.80 - 2.40 mg/dL) 2.00 Laboratory Tests 07/225 Hematology WBC (4.5 - 11.0 x10 3/uL) [...] (Auto) (14.0 - 32.0 %) 7.3 L Starke % (Auto) (4.8 - 9.0 %) 6.8 Eos % (Auto) (0.3 - 3.7 %) 8.6 H Baso % (Auto) (0.0 - 2.0 %) 0.7 Neut # (Auto) (2.0 - 7.6 x10 3/uL) 10.21 H Lymph # (Auto) (1.0 - 3.8 x10 3/uL) 0.99 L Starke # (Auto) (0.1 - 0.8 x10 3/uL) 0.92 H Eos # (Auto) (0.0 - 0.2 x10 3/uL) 1.17 H Baso # (Auto) (0.0 - 0.2 x10 3/uL) 0.10 Abs Immat Gran (auto) (0.00 - 0.03 x10 3/uL) 0.14 H Add Manual Diff NO Immature Gran % (0.0 - 2.0 %) 1.0 Nucleated RBC % (0 - 0 %) 0.0 Nucleated RBCs # (Man) (0.0 - 0.1 x10 3/uL) 0.00 Treatment Prophylaxis Treatment ProphylaxisDrain(s)/tube(s): Drain(s)/tube(s): chest Diagnosis, Assessment PlanHospital course to date:This is a 81-year-old gentleman who presented to an outside hospital with complaints of chest pains while walking at his home on Thursday. He denies any previous history of coronary artery disease or other [place]. He was seen and evaluated at [facility]. He was found to have a urinary tract infection with urinary retention and acute kidney. He was started on dialysis via a left femoral temporary catheter. He underwent dialysis on Thursday, Thursday. Renal has been consultedDuring his work-up at outside hospital he underwent Left heart catheterization showing severe Left Main 70%. LAD: Proximal diffuse 80% stenosis and then diffuse 60% in the midsegment and on the distal segment, there is focal 70% stenosis. Diagonal branches with luminal irregularities. Left circumflex, codominant circulation with proximal 80%, mid 80 to 90% and then in the OM, there is proximal 60%, distal left circumflex has a 70% stenosis. RCA large and dominant with proximal 40% stenosis, mid 60% stenosis and then diffuse 50% stenosis all the way distally and the PLV and the PDA with luminal irregularities. CV surgery consulted for evaluation for coronary bypass graft. CAROTIDS- No carotid stenosis CT chest complete IMPRESSION: Small bilateral pleural effusions with bibasilar atelectasis. Echo:1. Left ventricle: The cavity size is at the upper limits of normal. Wall thickness is mildly increased. Systolic function is severely reduced. The estimated ejection fraction is 30-34%. Moderate hypokinesis of the entire myocardium. Doppler parameters are consistent with abnormal left ventricular relaxation (grade 1 diastolic dysfunction).2. Pericardium, extracardiac: A small pericardial effusion is identified along the left ventricular free wall, along the right ventricular free wall, and along the right atrial free wall. Assessment/Plan1) CAD Mutlivessel Will obtain echo,carotids. 2) CLAUDETTE Started dialysis on Creatine 7.3 Renal consulted. 3) BPH- Urinary retention. Waters in place Workup for CABG underway. Will get functional assessment with PT. PFT pending Carotid dopplers- No disease Echo PendingDialyiss per Renal. Baseline Cr unknown. 07/04 07/04 Doing well today, alert, up in the chair. Denies chest painEchocardiogram showed LVEF 30 to 34%, mild MR, trivial TRCT chest images reviewedEncourage I-S and mobilizationCreatinine 5.5 from 7.3, good urine output. Renal US showed bilateral severe hydronephrosis. Plan for HD today and tomorrow Will tentatively schedule patient for surgery on Thursday.Patient seen and plan reviewed with Dr Schwarz 07/05 Remains in a stable condition, denies chest pain BUN 53, creatinine 5.4. Plan for hemodialysis today and tomorrow for clearanceHe is also on Lasix 20 mg IV twice daily, urine output 1.1 L overnightWe will calculate risk of surgery with STS scoreEncourage I-S and mobilizationWill tentatively schedule patient for surgery on Thursday.Pt seen and plan reviewed with Dr Schwarz 07/06 BUN 36, creatinine 4.4. Plan for hemodialysis todayAwaiting CABG tomorrowSurgery, risks involved, STS score, benefits, complications and alternatives were explained to the patient. He acknowledged understanding and is willing to proceedN.p.o. after midnightPatient seen and plan reviewed with Dr. Schwarz 07/09/22POD 1CABG x 5 (MISTRY-LAD, SVG-Ladonna, SVG-OM1< SVG-OM3, SVG-PDA), ALAA, EVH (RGSV)Patient hemodynamically unstable, on epi at 4, and vaso .04, decreased uop overnight- 150ccStarted patient on CRRT 2k/3.5Wean epi as tolerated, Cardiac incex 2.8-3labs and chest x-ray reviewed, electrolytes stable, hgb 6.5- transfuse 2 units PRBCOn 4l nasal cannula- encourage incentive spirometer and deep breathingKeep both chest tubes and monitor outputsGlycemic control on insulin dripCardiac dietBowel regimen protocolPain managementSCDs for DVT and PPI for GI prophylaxisPT/OTMonitor patient closely in CVICUPlan of care discussed with Dr. Schwarz 07/10/22PO 2Patient alert, awake, and oriented, no distres notedlabs and CXR reviewed stableBreathing comfortably on 3l nasal cannula- wean as tolerated to melissa O2 sats > 92%Encourage I-S use and deep breathingOn CRRT- able to remove 2.9L overnight- nephrology followingCardiac index 3.1- wean off epi dripKeep chest tubes for now and monitor outputsTransition to sliding scale insulin- cardiac dietTry to get patient out of bed to chair today- ambulate with PT/OTSCDs for DVT prophylaxisKeep patient in CVICU for close monitoring 07/11/22PO 3Patient in stable condition, overnight events noted- decreased urine output 35 ml last night-started on dopamine gtt for renal perfusionCardiac index 3.5- epi currently at 2- will discontinue today, vasopressin at 0.02, added low dose midodrine 2.5 mg TID, repeat echocardiogram.Renal Following- trial LasixPatient has Left femoral temp dialysis cath, Will need tunneled dialysis IJ cathplaced if need dialysis. On 5l nasal cannula- wean off as tolerated, encourage incentive spirometer and deep breathingKeep left pleural chest tube and monitor output- > 200 cc Tolerating diet, bowel regimen protocolPT/OT- patient out of bed to chair today- encourage ambulationDVT prophylaxis with SCDsMonitor patient closely in CVICUPlan discussed with multidisciplinary teamPlan discussed with Dr Schwarz/ Dr Rodríguez 07/12/22POD 5,Patient resting comfortable. Patient with hx of urinary retention- After standing today- voided 1.4 L. Needs Urology consult for retention K 5.4- HD in progress. Dr Plaza following. CT output 20- DC today. Pacers remain in place. 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 Card: Remains in sinus rhythm. Respir: on 7 L NC O2 95%Dispo: Rehab consultedPatient seen and exmained by Dr Rodríguez. Plan discussed with Team 07/13/22 5Patient with no new complaints. Recieved HD yesterday.Requiring less oxygen, now on 3l nasal cannula- continue to wean offCXR reviewed left apical pneumothorax 4cm/30%, Chest tube drained 140 overnight,placed back on suction to clear pneumo, CT drianed 200cc this AM. on suction. Labs reviewed- stable, decreased WBC, hgb stable, CR 3.9Eating welll, +BMUO- 550CC, BP improved on midodrine. Continue PT/OT, ambulation and incentive spirometer useRehab folowing Monitor in ICU todayDisucssed with Dr Schwarz- DC femoral line and Central line today. DC art line. Will re-eval need for dialysis cath Thursday. Consider tunnelled cath if need.Patient seen and examined by Dr Rodríguez. Plan discussed with Care team. 6Patient in stable condition, no distress notedRemains on room air, O2 sats > 92%, encourage I-S use and deep breathingCXR shows moderate left apical pneumothorax unchangedCT remained on suction, no airleak noConsult IR for pigtail chest tube placement this morningCardiac/renal dietLabs reviewed- K 5.1- repeat labs K 4.8Nephrology followingContinue therapy with PT/OTFollow up with urology for waters catheter- Dr Harris consulted.Monitor in CVICUPlan of care discussed with Dr Schwarz and multidisciplinary team 07/15/22POD 7Patient alert, awake, and oriented, no distress, no complaints at this timeBreathing comfortable on room airCXR shows resolved pneumothoraxLP and pigtail chest tube- no air leak noted, minimal output from LP 40 overnightLabs reviewed, K 5.2- corrected, follow up with nephrology to discuss need for dialysisTrend labs this afternoonBowel regimen, +gasFoley catheter discontinued per urology- voiding trial this AMAmbulation and incentive spirometer use encouragedDVT prophylaxis with SCDsKeep in ICU DISP: SNF- Case management Discussed plan of care with multidisciplinary team and Dr. Schwarz 3POD 8Patient doing well, alert, awake, and orientedO2 sats 93% on room air, encourage I-SCXR stable- no pneumo notedLeft pigtail chest tube - no air leak, clamped this morning, repeat CXRPlacement of tunneled dialysis catheter (BioFlo DuraMax 28 cm) yesterdayHD treatment done yesterday evening, plan for HD treatment today per nephrologyPatient failed voiding trial, waters catheter replaced- follow up with urologyEating wellContinue PT/OT- ambulationTransfer to CV 1 intermediate care unitDischarge planning for SNF- CM following and to set up dialysis chairPatient seen with Dr. Schwarz and discussed plan of care with multidisciplinary team. 07/17/22Patient in stable condition, no complaintsLabs and CXR reviewed- stableLeft pigtail chest tube discontinued yesterday- no pneumo notedRemains on room air, no distress- I-S encouragedCardiac diet, +BMKeep waters per urology f/u outpt, continue flomaxHD per nephrology- CM to setup outpt dialysis chairAwaiting bed availability on CV 1Discharge planning- SNFPlan of care discussed with multidisciplinary team and Dr. Schwarz. 07/18 Patient in stable condition, no complaintsRemains on room air, no distress- I-S encouragedEpicardial pacing wires discontinued. Limited echo to rule out pericardial effusionKeep waters per urology f/u outpt, continue flomaxHD per nephrology- CM to setup outpt dialysis chairDischarge planning- SNFPlan of care discussed with multidisciplinary team and Dr. Schwarz. 07/19 No new eventsEchocardiogram done, report pendingHD per nephrology- CM to setup outpt dialysis chairWaiting insurance approval for shelter facilityPatient seen and plan reviewed with Dr. Schwarz 07/20 Remains in a stable condition.Echocardiogram showed LVEF 30 to 34%, trivial pericardial effusionHD schedule per nephrologyAwaiting insurance approval for SNF 07/21 No complaints todayHD schedule per nephrologyAwaiting insurance approval for SNFEncourage I-S and mobilization 07/22 Remains in stable conditionContinue current management.Aspirin, Plavix, statin. Did not tolerate metoprolol, on midodrine 5 mg 3 timesdailyWBCs trending downAwaiting insurance approval for SNF Consultants: cardiology, cardiovascular surgery, nephrology at 1427 at 1003 RPT #:[id number] OF REPORTPRProgress [id number]:24:[id number] Available for patient [id number]:28:04 [facility] 2022-07-22 13:31:00 [id number]:31:00 [facility] ([facility])Cardiology Progress NoteREPORT#:[id number] REPORT STATUS: SignedDATE:07/22/22 TIME: 1331 PATIENT: SHERRI ARCE UNIT #: [id number]#: [id number] [address] [birth year] AGE: 81 SEX: M ATTEND: Jesus Larson [facility] AUTHOR: Sonya Stacy AGACNP * ALL edits or amendments must be made on the electronic/computer document * SubjectivePatient reports:No: complaints. Objective GeneralVS/I O:24 hour I O ending at 0700: 07/22 [...] O2 Flow FiO2 Mean Ox Delivery Rate 07/22 1253 [...] 87 124/59 85 PATIENT WEIGHT: Weight (lb): 191Weight (oz): 9.31Weight (kg): 86.900 Medications:Active Meds + DC'd Last 24 HrsMidodrine (PROAMATINE) 5 MG 0900,1300,1700 PRN PO Sodium Chloride (SODIUM CHLORIDE) 10 ML ASDIR IV Amiodarone HCl (CORDARONE) 200 MG BID PO Ipratropium [place] (ATROVENT) 500 MCG RTQ2H PRN PRN INH Lactulose (LACTULOSE) 20 GM DAILY PRN PRN PO Cyanocobalamin (Vitamin B-12 500 mcg tab) 500 MCG DAILY PO Ferrous Sulfate (FERROUS SULFATE) 325 [...] (Senna Lax 8.6 MG TABLET) 17.2 MG BEDTIME PO Ipratropium [place] (ATROVENT) 500 MCG RTQ4H INH Acetaminophen (TYLENOL) 650 MG Q4H PRN PRN PO Acetaminophen (TYLENOL) 650 MG Q4H PRN PRN RECTAL Dextrose/Water (DEXTROSE 10% IN WATER) 125 ML ASDIR PRN IV (CKD) Dextrose/Water (DEXTROSE 10% IN WATER) 250 ML ASDIR PRN IV (CKD) Glucagon (GLUCAGON) 1 MG ASDIR PRN IM Magnesium Sulfate (MAGNESIUM SULFATE 4GM/SWFI 100ML) 100 ML ASDIR PRN IV Magnesium Sulfate (MAGNESIUM SULFATE 2GM/SWFI 50ML) 50 ML ASDIR PRN IV Magnesium Sulfate/Dextrose (MAGNESIUM SULFATE 1GM/D5W 100ML) 100 ML ASDIR PRN IV Ondansetron HCl (ZOFRAN) 4 MG Q6H PRN PRN IV Albumin Human (ALBUMINAR-25%) 12.5 GM ASDIR PRN IV Heparin Sodium (Porcine) (HEPARIN SODIUM) 3,000 UNIT ASDIR PRN DIALYSIS Lidocaine HCl (LIDOCAINE HCL/PF) 0.5 ML ASDIR PRN I-DERMAL (CKD) Mannitol (Mannitol 20%) 12.5 GM ASDIR PRN IV Sodium Chloride (SODIUM CHLORIDE 0.9%) 2,000 ML ASDIR PRN IV Tamsulosin HCl (Flomax 0.4 mg) 0.4 MG BEDTIME PO Status post:07/08/22 CABG x 5 (MISTRY-LAD, SVG-Ladonna, SVG-OM1< SVG-OM3, SVG-PDA) ALAA Physical ExamGeneral appearance: alert, awakeENT: moist mucosal membranesNeck: no JVDCardiovascular: CV assessment: regular rate and rhythm, no murmurRespiratory: decreased breath sounds, no distressAbdomen: soft, non-tender, normal bowel sounds, no distention, no guardingUpper extremity: UE assessment: normal temperature, no edemaLower extremity: LE assessment: normal temperature, no edemaMusculoskeletal: normal inspectionNeuro/GIFT OFFICER: alert, oriented X 3, normal speechSkin: dryPsychiatry: normal affect ResultsFindings/Data:Laboratory Tests 07/225 0315 Chemistry Sodium (134 - [...] (Auto) (14.0 - 32.0 %) 7.3 L Starke % (Auto) (4.8 - 9.0 %) 6.8 Eos % (Auto) (0.3 - 3.7 %) 8.6 H Baso % (Auto) (0.0 - 2.0 %) 0.7 Neut # (Auto) (2.0 - 7.6 x10 3/uL) 10.21 H Lymph # (Auto) (1.0 - 3.8 x10 3/uL) 0.99 L Starke # (Auto) (0.1 - 0.8 x10 3/uL) 0.92 H Eos # (Auto) (0.0 - 0.2 x10 3/uL) 1.17 H Baso # (Auto) (0.0 - 0.2 x10 3/uL) 0.10 Abs Immat Gran (auto) (0.00 - 0.03 x10 3/uL) 0.14 H Add Manual Diff NO Immature Gran % (0.0 - 2.0 %) 1.0 Nucleated RBC % (0 - 0 %) 0.0 Nucleated RBCs # (Man) (0.0 - 0.1 x10 3/uL) 0.00 Laboratory Tests 07/22 0315 Chemistry Magnesium (1.80 - 2.40 mg/dL) 2.00 Results: labs reviewed, vital signs reviewed, rhythm personally rev'dTelemetry Interpretation:sinus rhythm Diagnosis, Assessment PlanPlan discussed with: patient Free Text DxA P NotesFree Text DxA P Notes:Mr. Arce is a pleasant 81 y/o M w/ PMHx: HTN, HLD presented to [facility] on 06/28/22 for chest pain and sob. He was diagnosed NSTEMI. LHC showed multivessel CAD. Transferred to [facility] for CABG. 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 urology consulted for bladded outlet obstruction and hydronephrosis, started on Flomax HD per nephro - HTN. bp stable, midodrine as needed - HLD. On statins. - Anemia. monitor Doing wellVS stable SNF pending at 1333 at 0859 RPT #:[id number] OF REPORTPRProgress [id number]:31:[id number] Available for patient [id number]:34:15 [facility] 2022-07-22 11:06:00 [id number]:06:00 [facility] ([facility])Hospitalist Progress NoteREPORT#:[id number] REPORT STATUS: SignedDATE:07/22/22 TIME: 1106 PATIENT: SHERRI ARCE UNIT #: [id number]#: [id number] [address] [birth year] AGE: 81 SEX: M ATTEND: Los Crawford DOADM AUTHOR: Jesus Larson MD * ALL edits or amendments must be made on the electronic/computer document * SubjectiveChief complaint:doing fine. no cp. no sob. awaiting SNF transfer. Objective GeneralVS/I O:Vital Signs: Date Time Temp Pulse Resp B/P B/P Pulse O2 O2 Flow FiO2 Mean Ox Delivery Rate 07/22 0828 [...] scale Measurement Method PATIENT WEIGHT: Weight (lb): 191Weight (oz): 9.31Weight (kg): 86.900 Physical ExamGeneral appearance: alert, awakeHead/Eyes: atraumatic, EOMI, normal conjunctiva/sclera, normocephalic, PERRLAENT: moist mucosal membranesNeck: no JVDCardiovascular: normal heart sounds, regular rate rhythmRespiratory: aerating well, clear to auscultation, symmetric expansion, no distressAbdomen: non-tender, normal bowel sounds, soft, no distention, no guarding, no reboundGenitourinary: urinary catheterExtremities: no edemaMusculoskeletal: normal inspectionNeuro/GIFT OFFICER: normal speech, no motor deficits, no sensory deficitsSkin: intact, normal color, no rashPsychiatry: normal affect ResultsRadiology data:Laboratory Tests 07/22/22 0315:[Embedded Image Not Available] 07/21/22 0445:[Embedded Image Not Available] Current Medications Sig/Earl Start time LastMedication Dose Route Stop Time Status AdminMidodrine 5 MG 0900,1300,1700 PRN 07/17 2099 AC 07/19 PO 08/16 2058 0950Sodium Chloride 10 ML ASDIR 07/17 1030 AC IV 08/16 1029Amiodarone HCl 200 MG BID 07/16 899 AC 07/22 PO 08/15 0859 1047Ipratropium [place] 500 MCG RTQ2H PRN PRN 07/11 1821 AC 07/10 INH 08/10 1820 1302Lactulose 20 GM DAILY PRN PRN 07/11 1245 AC 07/11 PO 08/10 1244 1411Cyanocobalamin 500 MCG DAILY 07/11 09 AC 07/22 PO 08/10 0859 1046Ferrous Sulfate 325 MG DAILY 07/11 09 AC 07/22 PO 08/10 0859 1046Bisacodyl 10 MG ONCE PRN 07/10 1200 AC 07/11 RECTAL 08/09 1159 0928Atorvastatin Calcium 40 MG 07/09 AC 07/21 PO 08/08 205 203Clopidogrel Bisulfate 75 MG DAILY 07/09 09 AC 07/22 PO 08/08 0859 1046Polyethylene Glycol 17 GM DAILY 07/09 899 AC 07/18 PO 08/08 0859 0941Pantoprazole 40 MG DAILY@0600 07/09 06 AC 07/22 PO 08/08 0559 0550Aspirin 81 MG DAILY 07/09 0020 AC 07/22 PO 08/08 0019 1046Docusate Sodium 100 MG BID 07/08 2099 AC 07/22 PO 08/07 2058 1046Sennosides 17.2 MG BEDTIME 07/08 2099 AC 07/17 PO 08/07 2058 2100Ipratropium [place] 500 MCG RTQ4H 07/08 1900 AC 07/22 INH 08/07 1859 0828Acetaminophen 650 MG Q4H PRN PRN 07/08 183 AC 07/17 PO 08/07 1829 0620Acetaminophen 650 MG Q4H PRN PRN 07/08 1830 AC RECTAL 08/07 1829Dextrose/Water 125 ML ASDIR PRN 07/08 1830 CKD IV 08/07 1829Dextrose/Water 250 ML ASDIR PRN 07/08 1830 CKD IV 08/07 1829Glucagon 1 MG ASDIR PRN 07/08 1830 AC IM 08/07 1829Magnesium Sulfate 100 ML ASDIR PRN 07/08 183 AC IV 08/07 1829Magnesium Sulfate 50 ML ASDIR PRN 07/08 183 AC 07/21 IV 08/07 1829 1034Magnesium Sulfate/ 100 ML ASDIR PRN 07/08 1830 AC 07/16Dextrose IV 08/07 1829 0650Ondansetron HCl 4 MG Q6H PRN PRN 07/08 183 AC IV 08/07 1829Albumin Human 12.5 GM ASDIR PRN 07/03 1200 AC 07/10 IV 08/03 1155 1327Heparin Sodium 3,000 UNIT ASDIR PRN 07/03 1200 AC 07/21 (Porcine) DIALYSIS 08/02 1159 1301Lidocaine HCl 0.5 ML ASDIR PRN 07/03 1200 CKD I-DERMAL 08/03 1155Mannitol 12.5 GM ASDIR PRN 07/03 1200 AC IV 08/03 1155Sodium Chloride 2,000 ML ASDIR PRN 07/03 1200 AC 07/21 IV 08/03 1155 0946Tamsulosin HCl 0.4 MG BEDTIME 07/025 AC 07/21 PO 08/01 Laboratory Tests: 07/22 07/22 0315 [...] (Auto) (14.0 - 32.0 %) 7.3 L Starke % (Auto) (4.8 - 9.0 %) 6.8 Eos % (Auto) (0.3 - 3.7 %) 8.6 H Baso % (Auto) (0.0 - 2.0 %) 0.7 Neut # (Auto) (2.0 - 7.6 x10 3/uL) 10.21 H Lymph # (Auto) (1.0 - 3.8 x10 3/uL) 0.99 L Starke # (Auto) (0.1 - 0.8 x10 3/uL) 0.92 H Eos # (Auto) (0.0 - 0.2 x10 3/uL) 1.17 H Baso # (Auto) (0.0 - 0.2 x10 3/uL) 0.10 Abs Immat Gran (auto) (0.00 - 0.03 x10 3/uL) 0.14 H Add Manual Diff NO Immature Gran % (0.0 - 2.0 %) 1.0 Nucleated RBC % (0 - 0 %) 0.0 Nucleated RBCs # (Man) (0.0 - 0.1 x10 3/uL) 0.00 Treatment Prophylaxis Treatment ProphylaxisDrain(s)/tube(s): Drain(s)/tube(s): chest Diagnosis, Assessment PlanConsultants: cardiology, cardiovascular surgery, nephrology Free Text DxA P NotesFree text DxA P notes:NSTEMI, CAD (coronary artery disease), S/P CABG X 5 ON 07/08- STABLE, CARD/CTS SEEN, TX TO SNF ON THURSDAY, EF 30-35% patient presented with NSTEMI and found to hve severe CAD. Cardiac cath shows: Left Main - Distal 70% LAD - Proximal 80% with another 60% and 70% lessions Cir - Proximal 80%,mid 80-90%, Distal 70% and OM 60% RCA - large dominant with proximal 40%, Mid 60%. Echo: ef 30-34%, mod hypokinesis of entire myocardium, grade 1 diastolic dysfunction Patient on ASA, plavix, BB and Statin on amiodarone, Beta-tomas as tolerated for low BP, Acute systolic heart failure - STABLE, NO CHARLY/BB DUE TO LOW BP, ON MIDODRINE PRN, EF 30-35% Echocardiac with estimated LVEF of 30 to 34% with grade 1 diastolic dysfunction-s/p Lasix 20 mg twice daily 07/05 -on metoprolol 12.5 mg bid on hold now, BP low-no ACEI/ spironolactione for CLAUDETTE-Start GDMT prior to discharge-Await LifeVes - LIFEVEST at bedside. CLAUDETTE (acute kidney injury) DUE TO POST-OBS NEPHROPATHY - ON HD MWF, RENAL/UROL SEEN, NEEDS SNF WITH DIALYSIS ACCESS, CONT WATERS, FLOMAX, ABLE BODIED TANKERMAN FROM 7.0 TO 4.3 No prior Hx of renal disease. hx of BPH and treated with Fosamax w/o improvement nd continue to have difficulty urinating. On admission was found to be on acute renal filaure and had received HD twice prior to arrival here (thursday and thursday). 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 BPH (benign prostatic hyperplasia) - ABOVE, ON WATERS Started on Flomax at the previous hospital, will continue with it. Waters catheter in place, continue Waters catheter as per nephrology 07/05 Goiter Hx of Goiter and surgical resection. TSH 3.33, within normal limits. Patient is not on Thyroid medication. RXT LEUKOCYTOSIS - STABLE, NO INFECTION DEBILITY - OT/PT SEEN, SNF TX SOON UTI continue Rocephin for empiric treatment pending results of urine culture No growth for 48 hours DVT prophylaxis: Heparin 5000 units every 8 hoursDiet: Cardiac dietCODE STATUS: Full code Disposition: Status post CABG x5 on 07/09, hemodialysis as per nephrology. Worked with PT in his room, on 2 L oxygen via nasal cannula. PT/OT on board. Await LifeVest and SNF placement 07/22- awaiting SNF. lifevest arranged. Quality: Gen Med Crit Care VTE ProphylaxisVTE prophylaxis initiated: yes Advanced Care Plan 65 or OlderDiscussed with: patientDiscussion included: living will (none), power of school commissioner (none), code status (full code) at 1107 RPT #:[id number] OF REPORTPRProgress [id number]:06:[id number] Available for patient [id number]:08:24 [facility] 2022-07-21 16:30:00 [id number]:30:00 [facility] ([facility])Hospitalist Progress NoteREPORT#:[id number] REPORT STATUS: SignedDATE:07/21/22 TIME: 1630 PATIENT: SHERRI ARCE UNIT #: [id number]#: [id number] [facility]OM[facility]BED[facility]DOB: [birth year] AGE: 81 SEX: M ATTEND: Los Crawford DOADM AUTHOR: Los Crawford DO * ALL edits or amendments must be made on the electronic/computer document * SubjectiveChief complaint:Patient seen and examined during dialysis this morningNo new complaintsHPI:81 y/o man with PMHx of HTN, Dyslipidemia that [facility]06[facility] with chest pain and found to have a NSTEMI and also acute renal failure. Underwent cardiac cath yesterday and found to have severe CAD including left main disease. Transfer here for CABG evaluation. He also underwent HD Thursday and Thursday of this week. HD catheter was place at [facility]. Currently not having any chest pain. Had chest pain with SOB when he presentted to the previous hospital. Objective GeneralVS/I O:Vital Signs: Date Time Temp Pulse Resp B/P B/P Pulse O2 O2 Flow FiO2 Mean Ox Delivery Rate 07/21 1549 [...] 2329 98.2 91 14 131/65 86.7 93 07/205 97 Room air 07/20 1924 98.1 91 [...] scale Measurement Method PATIENT WEIGHT: Weight (lb): 191Weight (oz): 5.78Weight (kg): 86.800 Physical ExamGeneral appearance: alert, awake, orientedHead/Eyes: atraumatic, EOMI, normal conjunctiva/sclera, normocephalic, PERRLAENT: moist mucosal membranesNeck: no JVDCardiovascular: normal heart sounds, regular rate rhythmRespiratory: aerating well, clear to auscultation, symmetric expansion, no distressAbdomen: non-tender, normal bowel sounds, soft, no distention, no guarding, no reboundGenitourinary: urinary catheterExtremities: no edemaMusculoskeletal: normal inspectionNeuro/GIFT OFFICER: normal speech, no motor deficits, no sensory deficitsSkin: intact, normal color, no rashPsychiatry: normal affect Treatment Prophylaxis Treatment ProphylaxisDrain(s)/tube(s): Drain(s)/tube(s): chest Diagnosis, Assessment PlanConsultants: cardiology, cardiovascular surgery, nephrology Free Text DxA P NotesFree text DxA P notes:NSTEMI, CAD (coronary artery disease), S/P CABG X 5 ON 07/08- STABLE, CARD/CTS SEEN, TX TO SNF ON THURSDAY, EF 30-35% patient presented with NSTEMI and found to hve severe CAD. Cardiac cath shows: Left Main - Distal 70% LAD - Proximal 80% with another 60% and 70% lessions Cir - Proximal 80%,mid 80-90%, Distal 70% and OM 60% RCA - large dominant with proximal 40%, Mid 60%. Echo: ef 30-34%, mod hypokinesis of entire myocardium, grade 1 diastolic dysfunction Patient on ASA, plavix, BB and Statin on amiodarone, Beta-tomas as tolerated for low BP, Acute systolic heart failure - STABLE, NO CHARLY/BB DUE TO LOW BP, ON MIDODRINE PRN, EF 30-35% Echocardiac with estimated LVEF of 30 to 34% with grade 1 diastolic dysfunction-s/p Lasix 20 mg twice daily 07/05 -on metoprolol 12.5 mg bid on hold now, BP low-no ACEI/ spironolactione for CLAUDETTE-Start GDMT prior to discharge-Await LifeVest CLAUDETTE (acute kidney injury) DUE TO POST-OBS NEPHROPATHY - ON HD MWF, RENAL/UROL SEEN, NEEDS SNF WITH DIALYSIS ACCESS, CONT WATERS, FLOMAX, ABLE BODIED TANKERMAN FROM 7.0 TO 4.3 No prior Hx of renal disease. hx of BPH and treated with Fosamax w/o improvement nd continue to have difficulty urinating. On admission was found to be on acute renal filaure and had received HD twice prior to arrival here (thursday and thursday). 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 BPH (benign prostatic hyperplasia) - ABOVE, ON WATERS Started on Flomax at the previous hospital, will continue with it. Waters catheter in place, continue Waters catheter as per nephrology 07/05 Goiter Hx of Goiter and surgical resection. TSH 3.33, within normal limits. Patient is not on Thyroid medication. RXT LEUKOCYTOSIS - STABLE, NO INFECTION DEBILITY - OT/PT SEEN, SNF TX SOON UTI continue Rocephin for empiric treatment pending results of urine culture No growth for 48 hours DVT prophylaxis: Heparin 5000 units every 8 hoursDiet: Cardiac dietCODE STATUS: Full code Disposition: Status post CABG x5 on 07/09, hemodialysis as per nephrology. Worked with PT in his room, on 2 L oxygen via nasal cannula. PT/OT on board. Await LifeVest and SNF placement Quality: Gen Med Crit Care VTE ProphylaxisVTE prophylaxis initiated: yes Advanced Care Plan 65 or OlderDiscussed with: patientDiscussion included: living will (none), power of school commissioner (none), code status (full code) at 1631 RPT #:[id number] OF REPORTPRProgress [id number]:30:[id number] Available for patient [id number]:32:33 [facility] 2022-07-21 13:58:00 [id number]:58:00 [facility] ([facility])Nephrology Progress NoteREPORT#:[id number] REPORT STATUS: SignedDATE:07/21/22 TIME: 1358 PATIENT: SHERRI ARCE UNIT #: [id number]#: [id number] ROOM/BED: 3354-1DOB: [birth year] AGE: 81 SEX: M ATTEND: Los Crawfodr DOADM AUTHOR: Evelina Plaza MD * ALL edits or amendments must be made on the electronic/computer document * SubjectiveChief complaint:Feeling okay and has no complaints at this time. Objective GeneralVS/I O:Vital Signs: Date Time Temp Pulse Resp B/P B/P Pulse O2 O2 Flow FiO2 Mean Ox Delivery Rate 07/21 1311 [...] scale Measurement Method PATIENT WEIGHT: Weight (lb): 191Weight (oz): 5.78Weight (kg): 86.800 MedicationsActive Meds + DC'd Last 24 HrsMidodrine (PROAMATINE) 5 MG 0900,1300,1700 PRN PO Sodium Chloride (SODIUM CHLORIDE) 10 ML ASDIR IV Amiodarone HCl (CORDARONE) 200 MG BID PO Ipratropium [place] (ATROVENT) 500 MCG RTQ2H PRN PRN INH Lactulose (LACTULOSE) 20 GM DAILY PRN PRN PO Cyanocobalamin (Vitamin B-12 500 mcg tab) 500 MCG DAILY PO Ferrous Sulfate (FERROUS SULFATE) 325 [...] (Senna Lax 8.6 MG TABLET) 17.2 MG BEDTIME PO Ipratropium [place] (ATROVENT) 500 MCG RTQ4H INH Acetaminophen (TYLENOL) 650 MG Q4H PRN PRN PO Acetaminophen (TYLENOL) 650 MG Q4H PRN PRN RECTAL Dextrose/Water (DEXTROSE 10% IN WATER) 125 ML ASDIR PRN IV (CKD) Dextrose/Water (DEXTROSE 10% IN WATER) 250 ML ASDIR PRN IV (CKD) Glucagon (GLUCAGON) 1 MG ASDIR PRN IM Magnesium Sulfate (MAGNESIUM SULFATE 4GM/SWFI 100ML) 100 ML ASDIR PRN IV Magnesium Sulfate (MAGNESIUM SULFATE 2GM/SWFI 50ML) 50 ML ASDIR PRN IV Magnesium Sulfate/Dextrose (MAGNESIUM SULFATE 1GM/D5W 100ML) 100 ML ASDIR PRN IV Ondansetron HCl (ZOFRAN) 4 MG Q6H PRN PRN IV Albumin Human (ALBUMINAR-25%) 12.5 GM ASDIR PRN IV Heparin Sodium (Porcine) (HEPARIN SODIUM) 3,000 UNIT ASDIR PRN DIALYSIS Lidocaine HCl (LIDOCAINE HCL/PF) 0.5 ML ASDIR PRN I-DERMAL (CKD) Mannitol (Mannitol 20%) 12.5 GM ASDIR PRN IV Sodium Chloride (SODIUM CHLORIDE 0.9%) 2,000 ML ASDIR PRN IV Tamsulosin HCl (Flomax 0.4 mg) 0.4 MG BEDTIME PO Physical ExamGeneral appearance: alert, awakeHead/eyes: atraumatic, normocephalicENT: moist mucous membranes, normal noseNeck: non-tender, no JVDCardiovascular: regular rate and rhythmRespiratory: clear to auscultationAbdomen: non-tender, softGenitourinary: no bladder distentionExtremities: no edema, no swellingNeuro/GIFT OFFICER: alert, oriented X 3, normal speechSkin: dry, intact ResultsFindings/Data:Laboratory Tests 07/21 0445 Chemistry Sodium (134 - [...] (Auto) (14.0 - 32.0 %) 5.3 L Starke % (Auto) (4.8 - 9.0 %) 6.4 Eos % (Auto) (0.3 - 3.7 %) 6.9 H Baso % (Auto) (0.0 - 2.0 %) 0.5 Neut # (Auto) (2.0 - 7.6 x10 3/uL) 13.41 H Lymph # (Auto) (1.0 - 3.8 x10 3/uL) 0.88 L Starke # (Auto) (0.1 - 0.8 x10 3/uL) 1.07 H Eos # (Auto) (0.0 - 0.2 x10 3/uL) 1.16 H Baso # (Auto) (0.0 - 0.2 x10 3/uL) 0.08 Abs Immat Gran (auto) (0.00 - 0.03 x10 3/uL) 0.16 H Add Manual Diff NO Immature Gran % (0.0 - 2.0 %) 1.0 Nucleated RBC % (0 - 0 %) 0.0 Nucleated RBCs # (Man) (0.0 - 0.1 x10 3/uL) 0.00 Treatment Prophylaxis Treatment ProphylaxisDrain(s)/tube(s): Drain(s)/tube(s): chest Diagnosis, Assessment PlanFree Text A P:Assessment:1-CLAUDETTE likely from urinary retention. oliguric CLAUDETTE now post op, and shock2- non-STEMI: multivessel disease w main left. S/P CABG X5 on - BPH. Waters catheter is in place.4-severe bilateral hydronephrosis5- shock : Cardiogenic resolved. 6-hyperlipidemia7- AGMA resolved. Plan:- unknown Scr baseline.-will be getting HD MWF here. HD today with no UF- Ultrasound showed severe bilateral hydronephrosis and medical renal disease. Urology seen and recommended Waters catheter when discharged home with Flomax, and outpatient follow-up.- He underwent LHC on 07/03. - Started on HD on 07/04. - s/p CABG X5 on 07/08-Adequate urine output volume but no clearance.-TDC placed 07/15. -Obtain 24 creatinine and urea clearance. stble from nephrology for discharge to [facility] Consultants: cardiology, cardiovascular surgery, nephrology at 1401 RPT #:[id number] OF REPORTPRProgress [id number]:58:[id number] Available for patient [id number]:01:54 [facility] 2022-07-21 11:47:00 [id number]:47:00 [facility] ([facility])Cardiothoracic Surgery ProgREPORT#:[id number] REPORT STATUS: SignedDATE:07/21/22 TIME: 114 PATIENT: SHERRI ARCE UNIT #: [id number]#: [id number] [address] [birth year] AGE: 81 SEX: M ATTEND: Srinath Kaur MDA AUTHOR: Rosalind Toribio 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 Allergy/Immun:Denies: allergic reaction. Respiratory:Denies: SOB. Cardiovascular:Denies: chest pain, palpitations. GI:Denies: abdominal pain, nausea, vomiting. :Denies: dysuria, hematuria. Heme:Denies: bleeding. Neuro:Denies: dizziness, headache, vision change. All systems rev neg: except as marked Objective GeneralVS/I OLast Documented: Result Date Time Pulse Ox 95 [...] scale Measurement Method PATIENT WEIGHT: Weight (lb): 191Weight (oz): 5.78Weight (kg): 86.800 Physical ExamGeneral appearance: alert, oriented, mental status normal, no respiratory distressWound/incision: Location:sternal Site condition: edges approximated, incision intact, no drainage, no ecchymosis, no erythemaHEENT: anicteric, mucosal membranes moistNeck: supple/no meningismusCardiovascular: normal heart sounds, regular rate rhythmRespiratory: aerating well, symmetric expansion, no distressAbdomen: soft, non-tender, no distentionGenitourinary: foleyExtremities: moves allNeuro/GIFT OFFICER: alert, oriented X 3, normal speech, no motor deficitsPsychiatry: normal affect, normal mood Current MedicationsMedications:Active Meds + DC'd Last 24 HrsMidodrine (PROAMATINE) 5 MG 0900,1300,1700 PRN PO Sodium Chloride (SODIUM CHLORIDE) 10 ML ASDIR IV Amiodarone HCl (CORDARONE) 200 MG BID PO Ipratropium [place] (ATROVENT) 500 MCG RTQ2H PRN PRN INH Lactulose (LACTULOSE) 20 GM DAILY PRN PRN PO Cyanocobalamin (Vitamin B-12 500 mcg tab) 500 MCG DAILY PO Ferrous Sulfate (FERROUS SULFATE) 325 [...] (Senna Lax 8.6 MG TABLET) 17.2 MG BEDTIME PO Ipratropium [place] (ATROVENT) 500 MCG RTQ4H INH Acetaminophen (TYLENOL) 650 MG Q4H PRN PRN PO Acetaminophen (TYLENOL) 650 MG Q4H PRN PRN RECTAL Dextrose/Water (DEXTROSE 10% IN WATER) 125 ML ASDIR PRN IV (CKD) Dextrose/Water (DEXTROSE 10% IN WATER) 250 ML ASDIR PRN IV (CKD) Glucagon (GLUCAGON) 1 MG ASDIR PRN IM Magnesium Sulfate (MAGNESIUM SULFATE 4GM/SWFI 100ML) 100 ML ASDIR PRN IV Magnesium Sulfate (MAGNESIUM SULFATE 2GM/SWFI 50ML) 50 ML ASDIR PRN IV Magnesium Sulfate/Dextrose (MAGNESIUM SULFATE 1GM/D5W 100ML) 100 ML ASDIR PRN IV Ondansetron HCl (ZOFRAN) 4 MG Q6H PRN PRN IV Albumin Human (ALBUMINAR-25%) 12.5 GM ASDIR PRN IV Heparin Sodium (Porcine) (HEPARIN SODIUM) 3,000 UNIT ASDIR PRN DIALYSIS Lidocaine HCl (LIDOCAINE HCL/PF) 0.5 ML ASDIR PRN I-DERMAL (CKD) Mannitol (Mannitol 20%) 12.5 GM ASDIR PRN IV Sodium Chloride (SODIUM CHLORIDE 0.9%) 2,000 ML ASDIR PRN IV Tamsulosin HCl (Flomax 0.4 mg) 0.4 MG BEDTIME PO ResultsFindings/Data:Laboratory Tests 07/21 0445 Chemistry Sodium (134 - [...] (1.80 - 2.40 mg/dL) 1.93 Laboratory Tests 07/218 Hematology WBC (4.5 - 11.0 x10 3/uL) [...] (Auto) (14.0 - 32.0 %) 5.3 L Starke % (Auto) (4.8 - 9.0 %) 6.4 Eos % (Auto) (0.3 - 3.7 %) 6.9 H Baso % (Auto) (0.0 - 2.0 %) 0.5 Neut # (Auto) (2.0 - 7.6 x10 3/uL) 13.41 H Lymph # (Auto) (1.0 - 3.8 x10 3/uL) 0.88 L Starke # (Auto) (0.1 - 0.8 x10 3/uL) 1.07 H Eos # (Auto) (0.0 - 0.2 x10 3/uL) 1.16 H Baso # (Auto) (0.0 - 0.2 x10 3/uL) 0.08 Abs Immat Gran (auto) (0.00 - 0.03 x10 3/uL) 0.16 H Add Manual Diff NO Immature Gran % (0.0 - 2.0 %) 1.0 Nucleated RBC % (0 - 0 %) 0.0 Nucleated RBCs # (Man) (0.0 - 0.1 x10 3/uL) 0.00 Treatment Prophylaxis Treatment ProphylaxisDrain(s)/tube(s): Drain(s)/tube(s): chest Diagnosis, Assessment PlanHospital course to date:This is a 81-year-old gentleman who presented to an outside hospital with complaints of chest pains while walking at his home on Thursday. He denies any previous history of coronary artery disease or other [place]. He was seen and evaluated at [facility]. He was found to have a urinary tract infection with urinary retention and acute kidney. He was started on dialysis via a left femoral temporary catheter. He underwent dialysis on Thursday, Thursday. Renal has been consultedDuring his work-up at outside hospital he underwent Left heart catheterization showing severe Left Main 70%. LAD: Proximal diffuse 80% stenosis and then diffuse 60% in the midsegment and on the distal segment, there is focal 70% stenosis. Diagonal branches with luminal irregularities. Left circumflex, codominant circulation with proximal 80%, mid 80 to 90% and then in the OM, there is proximal 60%, distal left circumflex has a 70% stenosis. RCA large and dominant with proximal 40% stenosis, mid 60% stenosis and then diffuse 50% stenosis all the way distally and the PLV and the PDA with luminal irregularities. CV surgery consulted for evaluation for coronary bypass graft. CAROTIDS- No carotid stenosis CT chest complete IMPRESSION: Small bilateral pleural effusions with bibasilar atelectasis. Echo:1. Left ventricle: The cavity size is at the upper limits of normal. Wall thickness is mildly increased. Systolic function is severely reduced. The estimated ejection fraction is 30-34%. Moderate hypokinesis of the entire myocardium. Doppler parameters are consistent with abnormal left ventricular relaxation (grade 1 diastolic dysfunction).2. Pericardium, extracardiac: A small pericardial effusion is identified along the left ventricular free wall, along the right ventricular free wall, and along the right atrial free wall. Assessment/Plan1) CAD Mutlivessel Will obtain echo,carotids. 2) CLAUDETTE Started dialysis on Creatine 7.3 Renal consulted. 3) BPH- Urinary retention. Waters in place Workup for CABG underway. Will get functional assessment with PT. PFT pending Carotid dopplers- No disease Echo PendingDialyiss per Renal. Baseline Cr unknown. 07/04 07/04 Doing well today, alert, up in the chair. Denies chest painEchocardiogram showed LVEF 30 to 34%, mild MR, trivial TRCT chest images reviewedEncourage I-S and mobilizationCreatinine 5.5 from 7.3, good urine output. Renal US showed bilateral severe hydronephrosis. Plan for HD today and tomorrow Will tentatively schedule patient for surgery on Thursday.Patient seen and plan reviewed with Dr Schwarz 07/05 Remains in a stable condition, denies chest pain BUN 53, creatinine 5.4. Plan for hemodialysis today and tomorrow for clearanceHe is also on Lasix 20 mg IV twice daily, urine output 1.1 L overnightWe will calculate risk of surgery with STS scoreEncourage I-S and mobilizationWill tentatively schedule patient for surgery on Thursday.Pt seen and plan reviewed with Dr Schwarz 07/06 BUN 36, creatinine 4.4. Plan for hemodialysis todayAwaiting CABG tomorrowSurgery, risks involved, STS score, benefits, complications and alternatives were explained to the patient. He acknowledged understanding and is willing to proceedN.p.o. after midnightPatient seen and plan reviewed with Dr. Schwarz 07/09/22POD 1CABG x 5 (MISTRY-LAD, SVG-Ladonna, SVG-OM1< SVG-OM3, SVG-PDA), ALAA, EVH (RGSV)Patient hemodynamically unstable, on epi at 4, and vaso .04, decreased uop overnight- 150ccStarted patient on CRRT 2k/3.5Wean epi as tolerated, Cardiac incex 2.8-3labs and chest x-ray reviewed, electrolytes stable, hgb 6.5- transfuse 2 units PRBCOn 4l nasal cannula- encourage incentive spirometer and deep breathingKeep both chest tubes and monitor outputsGlycemic control on insulin dripCardiac dietBowel regimen protocolPain managementSCDs for DVT and PPI for GI prophylaxisPT/OTMonitor patient closely in CVICUPlan of care discussed with Dr. Schwarz 07/10/22PO 2Patient alert, awake, and oriented, no distres notedlabs and CXR reviewed stableBreathing comfortably on 3l nasal cannula- wean as tolerated to melissa O2 sats > 92%Encourage I-S use and deep breathingOn CRRT- able to remove 2.9L overnight- nephrology followingCardiac index 3.1- wean off epi dripKeep chest tubes for now and monitor outputsTransition to sliding scale insulin- cardiac dietTry to get patient out of bed to chair today- ambulate with PT/OTSCDs for DVT prophylaxisKeep patient in CVICU for close monitoring 07/11/22PO 3Patient in stable condition, overnight events noted- decreased urine output 35 ml last night-started on dopamine gtt for renal perfusionCardiac index 3.5- epi currently at 2- will discontinue today, vasopressin at 0.02, added low dose midodrine 2.5 mg TID, repeat echocardiogram.Renal Following- trial LasixPatient has Left femoral temp dialysis cath, Will need tunneled dialysis IJ cathplaced if need dialysis. On 5l nasal cannula- wean off as tolerated, encourage incentive spirometer and deep breathingKeep left pleural chest tube and monitor output- > 200 cc Tolerating diet, bowel regimen protocolPT/OT- patient out of bed to chair today- encourage ambulationDVT prophylaxis with SCDsMonitor patient closely in CVICUPlan discussed with multidisciplinary teamPlan discussed with Dr Schwarz/ Dr Rodríguez 07/12/22POD 5,Patient resting comfortable. Patient with hx of urinary retention- After standing today- voided 1.4 L. Needs Urology consult for retention K 5.4- HD in progress. Dr Plaza following. CT output 20- DC today. Pacers remain in place. 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 Card: Remains in sinus rhythm. Respir: on 7 L NC O2 95%Dispo: Rehab consultedPatient seen and exmained by Dr Rodríguez. Plan discussed with Team 07/13/22PO 5Patient with no new complaints. Recieved HD yesterday.Requiring less oxygen, now on 3l nasal cannula- continue to wean offCXR reviewed left apical pneumothorax 4cm/30%, Chest tube drained 140 overnight,placed back on suction to clear pneumo, CT drianed 200cc this AM. on suction. Labs reviewed- stable, decreased WBC, hgb stable, CR 3.9Eating welll, +BMUO- 550CC, BP improved on midodrine. Continue PT/OT, ambulation and incentive spirometer useRehab folowing Monitor in ICU todayDisucssed with Dr Schwarz- DC femoral line and Central line today. DC art line. Will re-eval need for dialysis cath Thursday. Consider tunnelled cath if need.Patient seen and examined by Dr Rodríguez. Plan discussed with Care team. 07/14POD 6Patient in stable condition, no distress notedRemains on room air, O2 sats > 92%, encourage I-S use and deep breathingCXR shows moderate left apical pneumothorax unchangedCT remained on suction, no airleak noConsult IR for pigtail chest tube placement this morningCardiac/renal dietLabs reviewed- K 5.1- repeat labs K 4.8Nephrology followingContinue therapy with PT/OTFollow up with urology for waters catheter- Dr Harris consulted.Monitor in CVICUPlan of care discussed with Dr Schwarz and multidisciplinary team 07/15/22POD 7Patient alert, awake, and oriented, no distress, no complaints at this timeBreathing comfortable on room airCXR shows resolved pneumothoraxLP and pigtail chest tube- no air leak noted, minimal output from LP 40 overnightLabs reviewed, K 5.2- corrected, follow up with nephrology to discuss need for dialysisTrend labs this afternoonBowel regimen, +gasFoley catheter discontinued per urology- voiding trial this AMAmbulation and incentive spirometer use encouragedDVT prophylaxis with SCDsKeep in ICU DISP: SNF- Case management Discussed plan of care with multidisciplinary team and Dr. Schwarz 3POD 8Patient doing well, alert, awake, and orientedO2 sats 93% on room air, encourage I-SCXR stable- no pneumo notedLeft pigtail chest tube - no air leak, clamped this morning, repeat CXRPlacement of tunneled dialysis catheter (BioFlo DuraMax 28 cm) yesterdayHD treatment done yesterday evening, plan for HD treatment today per nephrologyPatient failed voiding trial, waters catheter replaced- follow up with urologyEating wellContinue PT/OT- ambulationTransfer to CV 1 intermediate care unitDischarge planning for SNF- CM following and to set up dialysis chairPatient seen with Dr. Schwarz and discussed plan of care with multidisciplinary team. 07/17/22Patient in stable condition, no complaintsLabs and CXR reviewed- stableLeft pigtail chest tube discontinued yesterday- no pneumo notedRemains on room air, no distress- I-S encouragedCardiac diet, +BMKeep waters per urology f/u outpt, continue flomaxHD per nephrology- CM to setup outpt dialysis chairAwaiting bed availability on CV 1Discharge planning- SNFPlan of care discussed with multidisciplinary team and Dr. Schwarz. 07/18 Patient in stable condition, no complaintsRemains on room air, no distress- I-S encouragedEpicardial pacing wires discontinued. Limited echo to rule out pericardial effusionKeep waters per urology f/u outpt, continue flomaxHD per nephrology- CM to setup outpt dialysis chairDischarge planning- SNFPlan of care discussed with multidisciplinary team and Dr. Schwarz. 07/19 No new eventsEchocardiogram done, report pendingHD per nephrology- CM to setup outpt dialysis chairWaiting insurance approval for shelter facilityPatient seen and plan reviewed with Dr. Schwarz 07/20 Remains in a stable condition.Echocardiogram showed LVEF 30 to 34%, trivial pericardial effusionHD schedule per nephrologyAwaiting insurance approval for SNF 07/21 No complaints todayHD schedule per nephrologyAwaiting insurance approval for SNFEncourage I-S and mobilization at 1150 at 1004 RPT #:[id number] OF REPORTPRProgress [id number]:47:[id number] Available for patient [id number]:51:05 [facility]ACL 2022-07-21 10:29:00 [id number]:29:00 [facility] ([facility])Rehab Progress NoteREPORT#:[id number] REPORT STATUS: SignedDATE:07/21/22 TIME: 1029 PATIENT: SHERRI ARCE UNIT #: [id number]#: [id number] [address] [birth year] AGE: 81 SEX: M ATTEND: [place] DOADM AUTHOR: Magdaleno Washburn * ALL edits or amendments must be made on the electronic/computer document * SubjectiveChief complaint:Rehab follow-upDoing well.About to start HDDenies pain or sobPleasantDenies NAIK/N/V/D/CP14 systems reviewed and neg. except that above. Objective GeneralVS:Vital Signs: Date Time Temp Pulse Resp B/P B/P Pulse O2 O2 Flow FiO2 Mean Ox Delivery Rate 07/21 0846 [...] Room air 07/20 1232 95 Room air 07/20 1220 97.2 98 18 133/66 88.4 94 Room air 07/20 1219 94 Room air 21 PATIENT WEIGHT: Weight (lb): 191Weight (oz): 5.78Weight (kg): 86.800 Functional ProgressFunctional progress:The data set between the solid lines has been imported from multidisciplinary team documentation. FUNCTIONAL ACTIVITY ADMISSION STATUS INTERIM STATUS Toilet hygiene Toilet transfer Eating Shower/bathing Dressing upper body Dressing lower body Transfer to/from bed to chair Wheel 50ft w/ 2 turns Wheel 150 ft Walk 50 ft w/ 2 turns Walk 150 ft Four steps Physical ExamGeneral appearance: alert, awake, orientedPsych: alert, oriented x 3HEENT: anicteric, sclera clearNeck: supple, no JVDCardiovascular: regular rate rhythm, S1/F6Dendlhfxylo: aerating well, clear bilaterallyAbdomen: bowel sounds present, non-distended, softSkin: intact, no rashMusculoskeletal - general: Musculoskeletal - general: joints normal, normal muscle mass, normal toneNeuro/GIFT OFFICER: alert, oriented X 3, CNII-XII intact ResultsFindings/Data:Laboratory Tests: 07/21 07/21 0445 0445 Chemistry Sodium [...] (Auto) (14.0 - 32.0 %) 5.3 L Starke % (Auto) (4.8 - 9.0 %) 6.4 Eos % (Auto) (0.3 - 3.7 %) 6.9 H Baso % (Auto) (0.0 - 2.0 %) 0.5 Neut # (Auto) (2.0 - 7.6 x10 3/uL) 13.41 H Lymph # (Auto) (1.0 - 3.8 x10 3/uL) 0.88 L Starke # (Auto) (0.1 - 0.8 x10 3/uL) 1.07 H Eos # (Auto) (0.0 - 0.2 x10 3/uL) 1.16 H Baso # (Auto) (0.0 - 0.2 x10 3/uL) 0.08 Abs Immat Gran (auto) (0.00 - 0.03 x10 3/uL) 0.16 H Add Manual Diff NO Immature Gran % (0.0 - 2.0 %) 1.0 Nucleated RBC % (0 - 0 %) 0.0 Nucleated RBCs # (Man) (0.0 - 0.1 x10 3/uL) 0.00 Diagnosis, Assessment PlanFree Text A P:Non-STEMIMultivessel CADS/p CABG [id number] deconditioningImpaired mobility and gaitPostoperative anemiaDyslipidemiaHypertensionAKIAcute systolic heart failureHemodynamic issues postopLeukocytosis trending downPleural effusion and atelectasis Plan:Continue PT/OTOut of bed to chairWork on strength, bed mobility, transfers, gaitSternal precautionIncrease enduranceFall precautionsMonitor p.o. intake and nutritionStrict decubitus precautionsMonitor anemia. Persistent left pneumothorax. IR guided pigtail place. CXR shows expansion of the lung Urology consulted -Pt on FlomaxNephrology managing renal issues and elevated K+Utilize IS to reduce atelectasisAdvance therapies as toleratedPt lives alone and has 5 to 6 stairs to enter houseSNF order has been placed. Will require insurance approval for SNF, dialysis clinic acceptance, approval for [facility] prior to discharge Total time was 33 minutes > 50% with patient performing physical examination, discussing plan of care, goals, therapies, progress, medications, labs, SNF. All questions answeredRehab attestation:. at 0646 RPT #:[id number] OF REPORTPRProgress [id number]:29:[id number] Available for patient [id number]:46:23 [facility]ACL 2022-07-21 09:39:00 [id number]:39:00 [facility] ([facility])Cardiology Progress NoteREPORT#:[id number] REPORT STATUS: SignedDATE:07/21/22 TIME: 0939 PATIENT: SHERRI ARCE UNIT #: [id number]#: [id number] [address]: [birth year] AGE: 81 SEX: M ATTEND: Jesus Larson MDADM AUTHOR: Sonya Stacy * ALL edits or amendments must be made on the electronic/computer document * SubjectivePatient reports:No: complaints. Objective GeneralVS/I O:24 hour I O ending at 0700: 07/21 0700 07/20 1900 Intake Total 780 1080 Output Total 1375 1000 Balance -595 80 Intake, Oral 780 1080 Number 2 1 Bowel Movements Output, Urine 1375 1000 Patient 86.8 kg Weight Weight Standing scale Measurement Method Vital Signs: Date Time Temp Pulse Resp B/P B/P Pulse O2 O2 Flow FiO2 Mean Ox Delivery Rate 07/21 0846 [...] 07/20 2354 96 Room air 07/20 2329 36.8 91 14 131/65 86.7 93 07/20 2055 97 Room air 07/20 1924 36.7 91 16 133/66 88.5 94 Room air 07/20 1655 36.7 86 16 130/65 86.8 94 Room air 07/20 1232 95 Room air 21 07/20 1220 36.2 98 18 133/66 88.4 94 Room air 07/20 1219 94 Room air 21 PATIENT WEIGHT: Weight (lb): 191Weight (oz): 5.78Weight (kg): 86.800 Medications:Active Meds + DC'd Last 24 HrsMidodrine (PROAMATINE) 5 MG 0900,1300,1700 PRN PO Sodium Chloride (SODIUM CHLORIDE) 10 ML ASDIR IV Amiodarone HCl (CORDARONE) 200 MG BID PO Ipratropium [place] (ATROVENT) 500 MCG RTQ2H PRN PRN INH Lactulose (LACTULOSE) 20 GM DAILY PRN PRN PO Cyanocobalamin (Vitamin B-12 500 mcg tab) 500 MCG DAILY PO Ferrous Sulfate (FERROUS SULFATE) 325 [...] (Senna Lax 8.6 MG TABLET) 17.2 MG BEDTIME PO Ipratropium [place] (ATROVENT) 500 MCG RTQ4H INH Acetaminophen (TYLENOL) 650 MG Q4H PRN PRN PO Acetaminophen (TYLENOL) 650 MG Q4H PRN PRN RECTAL Dextrose/Water (DEXTROSE 10% IN WATER) 125 ML ASDIR PRN IV (CKD) Dextrose/Water (DEXTROSE 10% IN WATER) 250 ML ASDIR PRN IV (CKD) Glucagon (GLUCAGON) 1 MG ASDIR PRN IM Magnesium Sulfate (MAGNESIUM SULFATE 4GM/SWFI 100ML) 100 ML ASDIR PRN IV Magnesium Sulfate (MAGNESIUM SULFATE 2GM/SWFI 50ML) 50 ML ASDIR PRN IV Magnesium Sulfate/Dextrose (MAGNESIUM SULFATE 1GM/D5W 100ML) 100 ML ASDIR PRN IV Ondansetron HCl (ZOFRAN) 4 MG Q6H PRN PRN IV Albumin Human (ALBUMINAR-25%) 12.5 GM ASDIR PRN IV Heparin Sodium (Porcine) (HEPARIN SODIUM) 3,000 UNIT ASDIR PRN DIALYSIS Lidocaine HCl (LIDOCAINE HCL/PF) 0.5 ML ASDIR PRN I-DERMAL (CKD) Mannitol (Mannitol 20%) 12.5 GM ASDIR PRN IV Sodium Chloride (SODIUM CHLORIDE 0.9%) 2,000 ML ASDIR PRN IV Tamsulosin HCl (Flomax 0.4 mg) 0.4 MG BEDTIME PO Physical ExamGeneral appearance: alert, awakeHead/Eyes: atraumaticENT: moist mucosal membranesNeck: no JVDCardiovascular: CV assessment: regular rate and rhythm, no murmurRespiratory: decreased breath sounds, no distressAbdomen: soft, non-tender, normal bowel sounds, no distention, no guardingUpper extremity: UE assessment: normal temperature, no edemaLower extremity: LE assessment: normal temperature, no edemaMusculoskeletal: normal inspectionNeuro/GIFT OFFICER: alert, oriented X 3, normal speechSkin: dryPsychiatry: normal affect ResultsFindings/Data:Laboratory Tests 07/21 0445 Chemistry Sodium (134 - [...] (Auto) (14.0 - 32.0 %) 5.3 L Starke % (Auto) (4.8 - 9.0 %) 6.4 Eos % (Auto) (0.3 - 3.7 %) 6.9 H Baso % (Auto) (0.0 - 2.0 %) 0.5 Neut # (Auto) (2.0 - 7.6 x10 3/uL) 13.41 H Lymph # (Auto) (1.0 - 3.8 x10 3/uL) 0.88 L Starke # (Auto) (0.1 - 0.8 x10 3/uL) 1.07 H Eos # (Auto) (0.0 - 0.2 x10 3/uL) 1.16 H Baso # (Auto) (0.0 - 0.2 x10 3/uL) 0.08 Abs Immat Gran (auto) (0.00 - 0.03 x10 3/uL) 0.16 H Add Manual Diff NO Immature Gran % (0.0 - 2.0 %) 1.0 Nucleated RBC % (0 - 0 %) 0.0 Nucleated RBCs # (Man) (0.0 - 0.1 x10 3/uL) 0.00 Laboratory Tests 07/21 0445 Chemistry Magnesium (1.80 - 2.40 mg/dL) 1.93 Results: labs reviewed, vital signs reviewed Diagnosis, Assessment Plan Free Text DxA P NotesFree Text DxA P Notes:Mr. Arce is a pleasant 81 y/o M w/ PMHx: HTN, HLD presented to [facility] on 06/28/22 for chest pain and sob. He was diagnosed NSTEMI. [facility] showed multivessel CAD. Transferred to [facility] for CABG. 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 urology consulted for bladded outlet obstruction and hydronephrosis, started on Flomax HD per nephro - HTN. bp stable, midodrine as needed - HLD. On statins. - Anemia. monitor Doing wellVS stable SNF pending at 1706 at 0859 RPT #:[id number] OF REPORTPRProgress [id number]:39:[id number] Available for patient [id number]:07:27 [facility] 2022-07-20 17:14:00 [id number]:14:00 [facility] ([facility])Nephrology Progress NoteREPORT#:[id number] REPORT STATUS: SignedDATE:07/20/22 TIME: 1713 PATIENT: SHERRI ARCE UNIT #: [id number]#: [id number] [address] [birth year] AGE: 81 SEX: M ATTEND: Srinath Kaur [facility] AUTHOR: Jackie Wan MD * ALL edits or amendments must be made on the electronic/computer document * SubjectiveChief complaint:Feeling okay and has no complaints at this time. Review of SystemsConstitutional:Reports: generalized weakness. All systems rev neg: except as marked Objective GeneralVS/I O:Vital Signs: Date Time Temp Pulse Resp B/P B/P Pulse O2 O2 Flow FiO2 Mean Ox Delivery Rate 07/20 1655 [...] scale Measurement Method PATIENT WEIGHT: Weight (lb): 191Weight (oz): 5.78Weight (kg): 86.800 MedicationsActive Meds + DC'd Last 24 HrsMidodrine (PROAMATINE) 5 MG 0900,1300,1700 PRN PO Sodium Chloride (SODIUM CHLORIDE) 10 ML ASDIR IV Amiodarone HCl (CORDARONE) 200 MG BID PO Ipratropium [place] (ATROVENT) 500 MCG RTQ2H PRN PRN INH Lactulose (LACTULOSE) 20 GM DAILY PRN PRN PO Cyanocobalamin (Vitamin B-12 500 mcg tab) 500 MCG DAILY PO Ferrous Sulfate (FERROUS SULFATE) 325 [...] (Senna Lax 8.6 MG TABLET) 17.2 MG BEDTIME PO Ipratropium [place] (ATROVENT) 500 MCG RTQ4H INH Acetaminophen (TYLENOL) 650 MG Q4H PRN PRN PO Acetaminophen (TYLENOL) 650 MG Q4H PRN PRN RECTAL Dextrose/Water (DEXTROSE 10% IN WATER) 125 ML ASDIR PRN IV (CKD) Dextrose/Water (DEXTROSE 10% IN WATER) 250 ML ASDIR PRN IV (CKD) Glucagon (GLUCAGON) 1 MG ASDIR PRN IM Magnesium Sulfate (MAGNESIUM SULFATE 4GM/SWFI 100ML) 100 ML ASDIR PRN IV Magnesium Sulfate (MAGNESIUM SULFATE 2GM/SWFI 50ML) 50 ML ASDIR PRN IV Magnesium Sulfate/Dextrose (MAGNESIUM SULFATE 1GM/D5W 100ML) 100 ML ASDIR PRN IV Ondansetron HCl (ZOFRAN) 4 MG Q6H PRN PRN IV Albumin Human (ALBUMINAR-25%) 12.5 GM ASDIR PRN IV Heparin Sodium (Porcine) (HEPARIN SODIUM) 3,000 UNIT ASDIR PRN DIALYSIS Lidocaine HCl (LIDOCAINE HCL/PF) 0.5 ML ASDIR PRN I-DERMAL (CKD) Mannitol (Mannitol 20%) 12.5 GM ASDIR PRN IV Sodium Chloride (SODIUM CHLORIDE 0.9%) 2,000 ML ASDIR PRN IV Tamsulosin HCl (Flomax 0.4 mg) 0.4 MG BEDTIME PO Physical ExamGeneral appearance: alert, awake, orientedHead/eyes: atraumatic, normocephalicENT: moist mucous membranes, normal noseNeck: non-tender, no JVDCardiovascular: regular rate and rhythmRespiratory: clear to auscultationAbdomen: non-tender, softGenitourinary: no bladder distentionExtremities: no edema, no swellingNeuro/GIFT OFFICER: alert, oriented X 3, normal speechSkin: dry, intact ResultsFindings/Data:Laboratory Tests 07/205 0445 Chemistry Sodium (134 - 147 mEq/L) [...] (Auto) (14.0 - 32.0 %) 6.5 L Starke % (Auto) (4.8 - 9.0 %) 7.1 Eos % (Auto) (0.3 - 3.7 %) 7.8 H Baso % (Auto) (0.0 - 2.0 %) 0.8 Neut # (Auto) (2.0 - 7.6 x10 3/uL) 11.22 H Lymph # (Auto) (1.0 - 3.8 x10 3/uL) 0.95 L Starke # (Auto) (0.1 - 0.8 x10 3/uL) 1.04 H Eos # (Auto) (0.0 - 0.2 x10 3/uL) 1.14 H Baso # (Auto) (0.0 - 0.2 x10 3/uL) 0.12 Abs Immat Gran (auto) (0.00 - 0.03 x10 3/uL) 0.20 H Add Manual Diff NO Immature Gran % (0.0 - 2.0 %) 1.4 Nucleated RBC % (0 - 0 %) 0.0 Nucleated RBCs # (Man) (0.0 - 0.1 x10 3/uL) 0.00 Treatment Prophylaxis Treatment ProphylaxisDrain(s)/tube(s): Drain(s)/tube(s): chest Diagnosis, Assessment PlanFree Text A P:Assessment:1-CLAUDETTE likely from urinary retention. oliguric CLAUDETTE now post op, and shock2- non-STEMI: multivessel disease w main left. S/P CABG X5 on - BPH. Waters catheter is in place.4-severe bilateral hydronephrosis5- shock : Cardiogenic resolved. 6-hyperlipidemia7- AGMA resolved. Plan:- unknown Scr baseline.-will be getting HD MWF here- Ultrasound showed severe bilateral hydronephrosis and medical renal disease. Continue Waters catheter. Urology consulted. - He underwent LHC on 07/03. - Started on HD on 07/04. - s/p CABG X5 on 07/08-Adequate urine output volume after Lasix but no clearance.- stopped NaHCO3 as started on HD. -TDC placed 07/15. stble from nephrology for discharge to [facility] Consultants: cardiology, cardiovascular surgery, nephrology at 1716 RPT #:[id number] OF REPORTPRProgress [id number]:[id number] Available for patient [id number]:33 [facility]L 2022-07-20 14:11:00 [id number]:11:00 [facility] ([facility])Cardiothoracic Surgery ProgREPORT#:[id number] REPORT STATUS: SignedDATE:07/20/22 TIME: 1411 PATIENT: SHERRI ARCE UNIT #: [id number]#: [id number] ROOM[facility]BED[facility]DOB: [birth year] AGE: 81 SEX: M ATTEND: Srinath Kaur [facility] AUTHOR: Rosalind Toribio 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 Allergy/Immun:Denies: allergic reaction. Respiratory:Denies: SOB. Cardiovascular:Denies: chest pain, palpitations. GI:Denies: abdominal pain, nausea, vomiting. :Denies: dysuria, hematuria. Heme:Denies: bleeding. Neuro:Denies: dizziness, headache, vision change. All systems rev neg: except as marked Objective GeneralVS/I OLast Documented: Result Date Time Pulse Ox 95 [...] scale Measurement Method PATIENT WEIGHT: Weight (lb): 191Weight (oz): 5.78Weight (kg): 86.800 Physical ExamGeneral appearance: alert, oriented, mental status normal, no respiratory distressWound/incision: Location:sternal Site condition: edges approximated, incision intactHEENT: anicteric, mucosal membranes moistNeck: supple/no meningismusCardiovascular: normal heart sounds, regular rate rhythmRespiratory: aerating well, symmetric expansion, no distressAbdomen: soft, non-tender, no distentionGenitourinary: no foleyExtremities: moves allNeuro/GIFT OFFICER: alert, oriented X 3, normal speech, no motor deficitsPsychiatry: normal affect, normal mood Treatment Prophylaxis Treatment ProphylaxisDrain(s)/tube(s): Drain(s)/tube(s): chest Quality: Trauma Gen Surg Advanced Care Plan 65 or OlderDiscussed with: patient Diagnosis, Assessment PlanHospital course to date:This is a 81-year-old gentleman who presented to an outside hospital with complaints of chest pains while walking at his home on Thursday. He denies any previous history of coronary artery disease or other [place]. He was seen and evaluated at [facility]. He was found to have a urinary tract infection with urinary retention and acute kidney. He was started on dialysis via a left femoral temporary catheter. He underwent dialysis on Thursday, Thursday. Renal has been consultedDuring his work-up at outside hospital he underwent Left heart catheterization showing severe Left Main 70%. LAD: Proximal diffuse 80% stenosis and then diffuse 60% in the midsegment and on the distal segment, there is focal 70% stenosis. Diagonal branches with luminal irregularities. Left circumflex, codominant circulation with proximal 80%, mid 80 to 90% and then in the OM, there is proximal 60%, distal left circumflex has a 70% stenosis. RCA large and dominant with proximal 40% stenosis, mid 60% stenosis and then diffuse 50% stenosis all the way distally and the PLV and the PDA with luminal irregularities. CV surgery consulted for evaluation for coronary bypass graft. CAROTIDS- No carotid stenosis CT chest complete IMPRESSION: Small bilateral pleural effusions with bibasilar atelectasis. Echo:1. Left ventricle: The cavity size is at the upper limits of normal. Wall thickness is mildly increased. Systolic function is severely reduced. The estimated ejection fraction is 30-34%. Moderate hypokinesis of the entire myocardium. Doppler parameters are consistent with abnormal left ventricular relaxation (grade 1 diastolic dysfunction).2. Pericardium, extracardiac: A small pericardial effusion is identified along the left ventricular free wall, along the right ventricular free wall, and along the right atrial free wall. Assessment/Plan1) CAD Mutlivessel Will obtain echo,carotids. 2) CLAUDETTE Started dialysis on Creatine 7.3 Renal consulted. 3) BPH- Urinary retention. Waters in place Workup for CABG underway. Will get functional assessment with PT. PFT pending Carotid dopplers- No disease Echo PendingDialyiss per Renal. Baseline Cr unknown. 07/04 07/04 Doing well today, alert, up in the chair. Denies chest painEchocardiogram showed LVEF 30 to 34%, mild MR, trivial TRCT chest images reviewedEncourage I-S and mobilizationCreatinine 5.5 from 7.3, good urine output. Renal US showed bilateral severe hydronephrosis. Plan for HD today and tomorrow Will tentatively schedule patient for surgery on Thursday.Patient seen and plan reviewed with Dr Schwarz 07/05 Remains in a stable condition, denies chest pain BUN 53, creatinine 5.4. Plan for hemodialysis today and tomorrow for clearanceHe is also on Lasix 20 mg IV twice daily, urine output 1.1 L overnightWe will calculate risk of surgery with STS scoreEncourage I-S and mobilizationWill tentatively schedule patient for surgery on Thursday.Pt seen and plan reviewed with Dr Schwarz 07/06 BUN 36, creatinine 4.4. Plan for hemodialysis todayAwaiting CABG tomorrowSurgery, risks involved, STS score, benefits, complications and alternatives were explained to the patient. He acknowledged understanding and is willing to proceedN.p.o. after midnightPatient seen and plan reviewed with Dr. Schwarz 07/09/22POD 1CABG x 5 (MISTRY-LAD, SVG-Ladonna, SVG-OM1< SVG-OM3, SVG-PDA), ALAA, EVH (RGSV)Patient hemodynamically unstable, on epi at 4, and vaso .04, decreased uop overnight- 150ccStarted patient on CRRT 2k/3.5Wean epi as tolerated, Cardiac incex 2.8-3labs and chest x-ray reviewed, electrolytes stable, hgb 6.5- transfuse 2 units PRBCOn 4l nasal cannula- encourage incentive spirometer and deep breathingKeep both chest tubes and monitor outputsGlycemic control on insulin dripCardiac dietBowel regimen protocolPain managementSCDs for DVT and PPI for GI prophylaxisPT/OTMonitor patient closely in CVICUPlan of care discussed with Dr. Schwarz 07/10/22 2Patient alert, awake, and oriented, no distres notedlabs and CXR reviewed stableBreathing comfortably on 3l nasal cannula- wean as tolerated to melissa O2 sats > 92%Encourage I-S use and deep breathingOn CRRT- able to remove 2.9L overnight- nephrology followingCardiac index 3.1- wean off epi dripKeep chest tubes for now and monitor outputsTransition to sliding scale insulin- cardiac dietTry to get patient out of bed to chair today- ambulate with PT/OTSCDs for DVT prophylaxisKeep patient in CVICU for close monitoring 07/11/22 3Patient in stable condition, overnight events noted- decreased urine output 35 ml last night-started on dopamine gtt for renal perfusionCardiac index 3.5- epi currently at 2- will discontinue today, vasopressin at 0.02, added low dose midodrine 2.5 mg TID, repeat echocardiogram.Renal Following- trial LasixPatient has Left femoral temp dialysis cath, Will need tunneled dialysis IJ cathplaced if need dialysis. On 5l nasal cannula- wean off as tolerated, encourage incentive spirometer and deep breathingKeep left pleural chest tube and monitor output- > 200 cc Tolerating diet, bowel regimen protocolPT/OT- patient out of bed to chair today- encourage ambulationDVT prophylaxis with SCDsMonitor patient closely in CVICUPlan discussed with multidisciplinary teamPlan discussed with Dr Schwarz/ Dr Rodríguez 07/12/22PO 5,Patient resting comfortable. Patient with hx of urinary retention- After standing today- voided 1.4 L. Needs Urology consult for retention K 5.4- HD in progress. Dr Plaza following. CT output 20- DC today. Pacers remain in place. 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 Card: Remains in sinus rhythm. Respir: on 7 L NC O2 95%Dispo: Rehab consultedPatient seen and exmained by Dr Rodríguez. Plan discussed with Team 07/13/22 5Patient with no new complaints. Recieved HD yesterday.Requiring less oxygen, now on 3l nasal cannula- continue to wean offCXR reviewed left apical pneumothorax 4cm/30%, Chest tube drained 140 overnight,placed back on suction to clear pneumo, CT drianed 200cc this AM. on suction. Labs reviewed- stable, decreased WBC, hgb stable, CR 3.9Eating welll, +BMUO- 550CC, BP improved on midodrine. Continue PT/OT, ambulation and incentive spirometer useRehab folowing Monitor in ICU todayDisucssed with Dr Schwarz- DC femoral line and Central line today. DC art line. Will re-eval need for dialysis cath Thursday. Consider tunnelled cath if need.Patient seen and examined by Dr Rodríguez. Plan discussed with Care team. 07/14PO 6Patient in stable condition, no distress notedRemains on room air, O2 sats > 92%, encourage I-S use and deep breathingCXR shows moderate left apical pneumothorax unchangedCT remained on suction, no airleak noConsult IR for pigtail chest tube placement this morningCardiac/renal dietLabs reviewed- K 5.1- repeat labs K 4.8Nephrology followingContinue therapy with PT/OTFollow up with urology for waters catheter- Dr Harris consulted.Monitor in CVICUPlan of care discussed with Dr Schwarz and multidisciplinary team 07/15/22PO 7Patient alert, awake, and oriented, no distress, no complaints at this timeBreathing comfortable on room airCXR shows resolved pneumothoraxLP and pigtail chest tube- no air leak noted, minimal output from LP 40 overnightLabs reviewed, K 5.2- corrected, follow up with nephrology to discuss need for dialysisTrend labs this afternoonBowel regimen, +gasFoley catheter discontinued per urology- voiding trial this AMAmbulation and incentive spirometer use encouragedDVT prophylaxis with SCDsKeep in ICU DISP: SNF- Case management Discussed plan of care with multidisciplinary team and Dr. Schwarz 3POD 8Patient doing well, alert, awake, and orientedO2 sats 93% on room air, encourage I-SCXR stable- no pneumo notedLeft pigtail chest tube - no air leak, clamped this morning, repeat CXRPlacement of tunneled dialysis catheter (BioFlo DuraMax 28 cm) yesterdayHD treatment done yesterday evening, plan for HD treatment today per nephrologyPatient failed voiding trial, waters catheter replaced- follow up with urologyEating wellContinue PT/OT- ambulationTransfer to CV 1 intermediate care unitDischarge planning for SNF- CM following and to set up dialysis chairPatient seen with Dr. Schwarz and discussed plan of care with multidisciplinary team. 07/17/22Patient in stable condition, no complaintsLabs and CXR reviewed- stableLeft pigtail chest tube discontinued yesterday- no pneumo notedRemains on room air, no distress- I-S encouragedCardiac diet, +BMKeep waters per urology f/u outpt, continue flomaxHD per nephrology- CM to setup outpt dialysis chairAwaiting bed availability on CV 1Discharge planning- SNFPlan of care discussed with multidisciplinary team and Dr. Schwarz. 07/18 Patient in stable condition, no complaintsRemains on room air, no distress- I-S encouragedEpicardial pacing wires discontinued. Limited echo to rule out pericardial effusionKeep waters per urology f/u outpt, continue flomaxHD per nephrology- CM to setup outpt dialysis chairDischarge planning- SNFPlan of care discussed with multidisciplinary team and Dr. Schwarz. 07/19 No new eventsEchocardiogram done, report pendingHD per nephrology- CM to setup outpt dialysis chairWaiting insurance approval for shelter facilityPatient seen and plan reviewed with Dr. Schwarz 07/20 Remains in a stable condition.Echocardiogram showed LVEF 30 to 34%, trivial pericardial effusionHD schedule per nephrologyAwaiting insurance approval for SNF Consultants: cardiology, cardiovascular surgery, nephrology at 1413 at 6480 RPT #:[id number] OF REPORTPRProgress [id number]:[id number] Available for patient [id number]:14:02 [facility] 2022-07-20 12:04:00 [id number]:04:00 [facility] ([facility])Cardiology Progress NoteREPORT#:[id number] REPORT STATUS: SignedDATE:07/20/22 TIME: 1204 PATIENT: SHERRI ARCE UNIT #: [id number]#: [id number] [place] [facility] [place]DOB: [birth year] AGE: 81 SEX: M ATTEND: Jesus Larson MDADM AUTHOR: Sonya Stacy * ALL edits or amendments must be made on the electronic/computer document * SubjectivePatient reports:No: complaints. Objective GeneralVS/I O:24 hour I O ending at 0700: 07/20 [...] 142/68 0.0 97 PATIENT WEIGHT: Weight (lb): 191Weight (oz): 5.78Weight (kg): 86.800 Medications:Active Meds + DC'd Last 24 HrsMidodrine (PROAMATINE) 5 MG 0900,1300,1700 PRN PO Sodium Chloride (SODIUM CHLORIDE) 10 ML ASDIR IV Amiodarone HCl (CORDARONE) 200 MG BID PO Ipratropium [place] (ATROVENT) 500 MCG RTQ2H PRN PRN INH Lactulose (LACTULOSE) 20 GM DAILY PRN PRN PO Cyanocobalamin (Vitamin B-12 500 mcg tab) 500 MCG DAILY PO Ferrous Sulfate (FERROUS SULFATE) 325 [...] (Senna Lax 8.6 MG TABLET) 17.2 MG BEDTIME PO Ipratropium [place] (ATROVENT) 500 MCG RTQ4H INH Acetaminophen (TYLENOL) 650 MG Q4H PRN PRN PO Acetaminophen (TYLENOL) 650 MG Q4H PRN PRN RECTAL Dextrose/Water (DEXTROSE 10% IN WATER) 125 ML ASDIR PRN IV (CKD) Dextrose/Water (DEXTROSE 10% IN WATER) 250 ML ASDIR PRN IV (CKD) Glucagon (GLUCAGON) 1 MG ASDIR PRN IM Magnesium Sulfate (MAGNESIUM SULFATE 4GM/SWFI 100ML) 100 ML ASDIR PRN IV Magnesium Sulfate (MAGNESIUM SULFATE 2GM/SWFI 50ML) 50 ML ASDIR PRN IV Magnesium Sulfate/Dextrose (MAGNESIUM SULFATE 1GM/D5W 100ML) 100 ML ASDIR PRN IV Ondansetron HCl (ZOFRAN) 4 MG Q6H PRN PRN IV Albumin Human (ALBUMINAR-25%) 12.5 GM ASDIR PRN IV Heparin Sodium (Porcine) (HEPARIN SODIUM) 3,000 UNIT ASDIR PRN DIALYSIS Lidocaine HCl (LIDOCAINE HCL/PF) 0.5 ML ASDIR PRN I-DERMAL (CKD) Mannitol (Mannitol 20%) 12.5 GM ASDIR PRN IV Sodium Chloride (SODIUM CHLORIDE 0.9%) 2,000 ML ASDIR PRN IV Tamsulosin HCl (Flomax 0.4 mg) 0.4 MG BEDTIME PO Physical ExamGeneral appearance: alert, awake, oriented, no acute distressHead/Eyes: atraumaticENT: moist mucosal membranesNeck: no JVDCardiovascular: CV assessment: regular rate and rhythm, no murmurRespiratory: decreased breath sounds, no distressAbdomen: soft, non-tender, normal bowel sounds, no distention, no guardingUpper extremity: UE assessment: normal temperature, no edemaLower extremity: LE assessment: normal temperature, no edemaMusculoskeletal: normal inspectionNeuro/GIFT OFFICER: alert, oriented X 3, normal speechSkin: dryPsychiatry: normal affect ResultsFindings/Data:Laboratory Tests 07/20 Chemistry Sodium (134 - 147 [...] (Auto) (14.0 - 32.0 %) 6.5 L Starke % (Auto) (4.8 - 9.0 %) 7.1 Eos % (Auto) (0.3 - 3.7 %) 7.8 H Baso % (Auto) (0.0 - 2.0 %) 0.8 Neut # (Auto) (2.0 - 7.6 x10 3/uL) 11.22 H Lymph # (Auto) (1.0 - 3.8 x10 3/uL) 0.95 L Starke # (Auto) (0.1 - 0.8 x10 3/uL) 1.04 H Eos # (Auto) (0.0 - 0.2 x10 3/uL) 1.14 H Baso # (Auto) (0.0 - 0.2 x10 3/uL) 0.12 Abs Immat Gran (auto) (0.00 - 0.03 x10 3/uL) 0.20 H Add Manual Diff NO Immature Gran % (0.0 - 2.0 %) 1.4 Nucleated RBC % (0 - 0 %) 0.0 Nucleated RBCs # (Man) (0.0 - 0.1 x10 3/uL) 0.00 Laboratory Tests 07/20 0445 Chemistry Magnesium (1.80 - 2.40 mg/dL) 2.05 Echo results:Summary: 1. Left ventricle: The cavity size is normal. Wall thickness is mildly increased. Systolic function is severely reduced. The estimated ejection fraction is 30-34%.2. Right ventricle: Systolic function is mildly reduced.3. Left atrium: The atrium is mildly dilated.4. Pericardium, extracardiac: A trivial pericardial effusion is identified. Diagnosis, Assessment PlanProblem List/A P: 1. HTN (hypertension) 2. CLAUDETTE (acute kidney injury) 3. CAD (coronary artery disease) 4. Dyslipidemia 5. BPH (benign prostatic hyperplasia) Free Text DxA P NotesFree Text DxA P Notes:Mr. Arce is a pleasant 81 y/o M w/ PMHx: HTN, HLD presented to [facility] on 06/28/22 for chest pain and sob. He was diagnosed NSTEMI. LHC showed multivessel CAD. Transferred to [facility] for CABG. 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 urology consulted for bladded outlet obstruction and hydronephrosis, started on Flomax HD per nephro - HTN. bp stable, midodrine as needed - HLD. On statins. - Anemia. monitor Doing wellVS stable SNF pending at 1208 at 0859 RPT #:[id number] OF REPORTPRProgress [id number]:[id number] Available for patient [id number]:08:19 [facility] 2022-07-20 11:38:00 [id number]:38:00 [facility] ([facility])Hospitalist Progress NoteREPORT#:[id number] REPORT STATUS: SignedDATE:07/20/22 TIME: 1138 PATIENT: SHERRI ARCE UNIT #: [id number]#: [id number] ROOM[facility]BED: [facility] [place]DOB: [birth year] AGE: 81 SEX: M ATTEND: Srinath Kaur AUTHOR: Srinath Kaur MD * ALL edits or amendments must be made on the electronic/computer document * SubjectiveChief complaint:NO COMPLAINTS, HE KNOWS TO GO TO SNF SOONHPI:81 y/o man with PMHx of HTN, Dyslipidemia that [facility] with chest pain and found to have a NSTEMI and also acute renal failure. Underwent cardiac cath yesterday and found to have severe CAD including left main disease. Transfer here for CABG evaluation. He also underwent HD Thursday and Thursday of this week. HD catheter was place at [facility]. Currently not having any chest pain. Had chest pain with SOB when he presentted to the previous hospital. Objective GeneralVS/I O:Vital Signs: Date Time Temp Pulse Resp B/P [...] scale Measurement Method PATIENT WEIGHT: Weight (lb): 191Weight (oz): 5.78Weight (kg): 86.800 Medications:Active Meds + DC'd Last 24 HrsMidodrine (PROAMATINE) 5 MG 0900,1300,1700 PRN PO Sodium Chloride (SODIUM CHLORIDE) 10 ML ASDIR IV Amiodarone HCl (CORDARONE) 200 MG BID PO Ipratropium [place] (ATROVENT) 500 MCG RTQ2H PRN PRN INH Lactulose (LACTULOSE) 20 GM DAILY PRN PRN PO Cyanocobalamin (Vitamin B-12 500 mcg tab) 500 MCG DAILY PO Ferrous Sulfate (FERROUS SULFATE) 325 [...] (Senna Lax 8.6 MG TABLET) 17.2 MG BEDTIME PO Ipratropium [place] (ATROVENT) 500 MCG RTQ4H INH Acetaminophen (TYLENOL) 650 MG Q4H PRN PRN PO Acetaminophen (TYLENOL) 650 MG Q4H PRN PRN RECTAL Dextrose/Water (DEXTROSE 10% IN WATER) 125 ML ASDIR PRN IV (CKD) Dextrose/Water (DEXTROSE 10% IN WATER) 250 ML ASDIR PRN IV (CKD) Glucagon (GLUCAGON) 1 MG ASDIR PRN IM Magnesium Sulfate (MAGNESIUM SULFATE 4GM/SWFI 100ML) 100 ML ASDIR PRN IV Magnesium Sulfate (MAGNESIUM SULFATE 2GM/SWFI 50ML) 50 ML ASDIR PRN IV Magnesium Sulfate/Dextrose (MAGNESIUM SULFATE 1GM/D5W 100ML) 100 ML ASDIR PRN IV Ondansetron HCl (ZOFRAN) 4 MG Q6H PRN PRN IV Albumin Human (ALBUMINAR-25%) 12.5 GM ASDIR PRN IV Heparin Sodium (Porcine) (HEPARIN SODIUM) 3,000 UNIT ASDIR PRN DIALYSIS Lidocaine HCl (LIDOCAINE HCL/PF) 0.5 ML ASDIR PRN I-DERMAL (CKD) Mannitol (Mannitol 20%) 12.5 GM ASDIR PRN IV Sodium Chloride (SODIUM CHLORIDE 0.9%) 2,000 ML ASDIR PRN IV Tamsulosin HCl (Flomax 0.4 mg) 0.4 MG BEDTIME PO Physical ExamGeneral appearance: chronically ill appearing, frail, alert, awakeNeck: no JVDCardiovascular: normal heart sounds, regular rate rhythmRespiratory: aerating well, clear to auscultation, symmetric expansion, no distressAbdomen: non-tender, normal bowel sounds, soft, no distention, no guarding, no reboundGenitourinary: urinary catheterExtremities: no edemaMusculoskeletal: normal inspectionNeuro/GIFT OFFICER: normal speech, no motor deficits, no sensory deficitsSkin: intact, normal color, no rashPsychiatry: normal affect ResultsFindings/Data:Laboratory Tests 07/20 0445 Chemistry Sodium (134 - [...] (Auto) (14.0 - 32.0 %) 6.5 L Starke % (Auto) (4.8 - 9.0 %) 7.1 Eos % (Auto) (0.3 - 3.7 %) 7.8 H Baso % (Auto) (0.0 - 2.0 %) 0.8 Neut # (Auto) (2.0 - 7.6 x10 3/uL) 11.22 H Lymph # (Auto) (1.0 - 3.8 x10 3/uL) 0.95 L Starke # (Auto) (0.1 - 0.8 x10 3/uL) 1.04 H Eos # (Auto) (0.0 - 0.2 x10 3/uL) 1.14 H Baso # (Auto) (0.0 - 0.2 x10 3/uL) 0.12 Abs Immat Gran (auto) (0.00 - 0.03 x10 3/uL) 0.20 H Add Manual Diff NO Immature Gran % (0.0 - 2.0 %) 1.4 Nucleated RBC % (0 - 0 %) 0.0 Nucleated RBCs # (Man) (0.0 - 0.1 x10 3/uL) 0.00 Diagnosis, Assessment PlanConsultants: cardiology, cardiovascular surgery, nephrology Free Text DxA P NotesFree text DxA P notes:NSTEMI, CAD (coronary artery disease), S/P CABG X 5 ON 07/08- STABLE, CARD/CTS SEEN, TX TO SNF ON THURSDAY, EF 30-35% patient presented with NSTEMI and found to hve severe CAD. Cardiac cath shows: Left Main - Distal 70% LAD - Proximal 80% with another 60% and 70% lessions Cir - Proximal 80%,mid 80-90%, Distal 70% and OM 60% RCA - large dominant with proximal 40%, Mid 60%. Echo: ef 30-34%, mod hypokinesis of entire myocardium, grade 1 diastolic dysfunction Patient on ASA, plavix, BB and Statin on amiodarone, Beta-tomas as tolerated for low BP, Acute systolic heart failure - STABLE, NO CHARLY/BB DUE TO LOW BP, ON MIDODRINE PRN, EF 30-35% Echocardiac with estimated LVEF of 30 to 34% with grade 1 diastolic dysfunction-s/p Lasix 20 mg twice daily 07/05 -on metoprolol 12.5 mg bid on hold now, BP low-no ACEI/ spironolactione for CLAUDETTE-Start GDMT prior to discharge CLAUDETTE (acute kidney injury) DUE TO POST-OBS NEPHROPATHY - ON HD MWF, RENAL/UROL SEEN, NEEDS SNF WITH DIALYSIS ACCESS, CONT WATERS, FLOMAX, ABLE BODIED TANKERMAN FROM 7.0 TO 4.3 No prior Hx of renal disease. hx of BPH and treated with Fosamax w/o improvement nd continue to have difficulty urinating. On admission was found to be on acute renal filaure and had received HD twice prior to arrival here (thursday and thursday). 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 BPH (benign prostatic hyperplasia) - ABOVE, ON WATERS Started on Flomax at the previous hospital, will continue with it. Waters catheter in place, continue Waters catheter as per nephrology 07/05 Goiter Hx of Goiter and surgical resection. TSH 3.33, within normal limits. Patient is not on Thyroid medication. RXT LEUKOCYTOSIS - STABLE, NO INFECTION DEBILITY - OT/PT SEEN, SNF TX SOON UTI continue Rocephin for empiric treatment pending results of urine culture No growth for 48 hours DVT prophylaxis: Heparin 5000 units every 8 hoursDiet: Cardiac dietCODE STATUS: Full code Disposition: Status post CABG x5 on 07/09, hemodialysis as per nephrology. Worked with PT in his room, on 2 L oxygen via nasal cannula. PT/OT on board. Rehab consulted. Transfer to floor. Quality: Gen Med Crit Care VTE ProphylaxisVTE prophylaxis initiated: yes Advanced Care Plan 65 or OlderDiscussed with: patientDiscussion included: living will (none), power of school commissioner (none), code status (full code) at 1141 RPT #:[id number] OF REPORTPRProgress [id number]:38:[id number] Available for patient [id number]:42:04 [facility] 2022-07-20 07:05:00 [id number]:05:00 [facility] ([facility])Rehab Progress NoteREPORT#:[id number] REPORT STATUS: SignedDATE:07/20/22 TIME: 704 PATIENT: SHERRI ARCE UNIT #: [id number]#: [id number] [address] [birth year] AGE: 81 SEX: M ATTEND: Srinath Kaur [facility] AUTHOR: Magdaleno Washburn * ALL edits or amendments must be made on the electronic/computer document * SubjectiveChief complaint:Rehab follow-upDoing well.Denies pain or sobPleasantDenies NAIK/N/V/D/CP14 systems reviewed and neg. except that above. Objective GeneralVS:Vital Signs: Date Time Temp Pulse Resp B/P [...] 119/79 0.0 98 PATIENT WEIGHT: Weight (lb): 191Weight (oz): 9.31Weight (kg): 86.900 Medications:Active Meds + DC'd Last 24 HrsMidodrine (PROAMATINE) 5 MG 0900,1300,1700 PRN PO Sodium Chloride (SODIUM CHLORIDE) 10 ML ASDIR IV Amiodarone HCl (CORDARONE) 200 MG BID PO Ipratropium [place] (ATROVENT) 500 MCG RTQ2H PRN PRN INH Lactulose (LACTULOSE) 20 GM DAILY PRN PRN PO Cyanocobalamin (Vitamin B-12 500 mcg tab) 500 MCG DAILY PO Ferrous Sulfate (FERROUS SULFATE) 325 [...] (Senna Lax 8.6 MG TABLET) 17.2 MG BEDTIME PO Ipratropium [place] (ATROVENT) 500 MCG RTQ4H INH Acetaminophen (TYLENOL) 650 MG Q4H PRN PRN PO Acetaminophen (TYLENOL) 650 MG Q4H PRN PRN RECTAL Dextrose/Water (DEXTROSE 10% IN WATER) 125 ML ASDIR PRN IV (CKD) Dextrose/Water (DEXTROSE 10% IN WATER) 250 ML ASDIR PRN IV (CKD) Glucagon (GLUCAGON) 1 MG ASDIR PRN IM Magnesium Sulfate (MAGNESIUM SULFATE 4GM/SWFI 100ML) 100 ML ASDIR PRN IV Magnesium Sulfate (MAGNESIUM SULFATE 2GM/SWFI 50ML) 50 ML ASDIR PRN IV Magnesium Sulfate/Dextrose (MAGNESIUM SULFATE 1GM/D5W 100ML) 100 ML ASDIR PRN IV Ondansetron HCl (ZOFRAN) 4 MG Q6H PRN PRN IV Albumin Human (ALBUMINAR-25%) 12.5 GM ASDIR PRN IV Heparin Sodium (Porcine) (HEPARIN SODIUM) 3,000 UNIT ASDIR PRN DIALYSIS Lidocaine HCl (LIDOCAINE HCL/PF) 0.5 ML ASDIR PRN I-DERMAL (CKD) Mannitol (Mannitol 20%) 12.5 GM ASDIR PRN IV Sodium Chloride (SODIUM CHLORIDE 0.9%) 2,000 ML ASDIR PRN IV Tamsulosin HCl (Flomax 0.4 mg) 0.4 MG BEDTIME PO Functional ProgressFunctional progress: Gait Cmt: PATIENT SEMI-RECLINED IN BED UPON ARRIVAL AND REPORTS OF NO PAIN AND AGREEABLE [...] this is the patient's last treatment, this entry serves as the discharge summary: 075 Start Time: 749 Stop Time: 813 Treatment Time: (minutes) 0:24 Completed by: Galindo Berry Conference/Supervising PT: Yes Supervising Therapist: Sincere Doran . BED MOBILITY: Yes Rolling Right/Left: Minimal Assistance Supine to Sit: Minimal Assistance Sit to Supine: Not Tested Scooting in bed: Minimal Assistance TRANSFERS: Yes Bed to/from chair: Minimal Assistance Sit to/from stand: Minimal Assistance Physical ExamGeneral appearance: alert, awakePsych: alert, oriented x 3HEENT: anicteric, sclera clearNeck: supple, no JVDCardiovascular: regular rate rhythm, S1/J5Ourzlbqhuqp: aerating well, clear bilaterallyAbdomen: bowel sounds present, non-distended, softSkin: intact, no rashMusculoskeletal - general: Musculoskeletal - general: joints normal, normal muscle mass, normal toneNeuro/GIFT OFFICER: alert, oriented X 3, CNII-XII intact ResultsFindings/Data:Laboratory Tests 07/19 07/19 07/18 07/18 07/18 0515 [...] - 32.0 %) 9.3 L 8.5 L Starke % (Auto) (4.8 - 9.0 %) 8.1 8.8 Eos % (Auto) (0.3 - 3.7 %) 7.9 H 7.2 H Baso % (Auto) (0.0 - 2.0 %) 0.7 0.6 Neut # (Auto) (2.0 - 7.6 x10 3/uL) 8.15 H 9.05 H Lymph # (Auto) (1.0 - 3.8 x10 3/uL) 1.05 1.05 Starke # (Auto) (0.1 - 0.8 x10 3/uL) 0.91 H 1.09 H Eos # (Auto) (0.0 - 0.2 x10 3/uL) 0.89 H 0.89 H Baso # (Auto) (0.0 - 0.2 x10 3/uL) 0.08 0.08 Abs Immat Gran (auto) (0.00 - 0.03 x10 3/uL) 0.19 H 0.21 H Add Manual Diff NO NO Immature Gran % (0.0 - 2.0 %) 1.7 1.7 Nucleated RBC % (0 - 0 %) 0.0 0.0 Nucleated RBCs # (Man) (0.0 - 0.1 x10 3/uL) 0.00 0.00 Recent Impressions:ULTRASOUND - DUP VEIN WOJCIECH 07/17 1519 Report Impression - Status: SIGNED Entered: 07/17/2022 1545 IMPRESSION: No evidence of deep vein thrombosis. Superficial thrombus in the right greater saphenous vein. Complex hypoechoic area in the right inguinal region without internal vascular flow or peripheral hyperemia measuring 4.2 x 1.4 x 2.3 cm which may represent a hematoma.Impression By: [email or web address] Yasmin Palma M.D.RADIOLOGY - XR CHEST 1 V 07/18 0559 Report Impression - Status: SIGNED Entered: 07/18/2022 0755 IMPRESSION: 1. Stable postoperative chest. 2. Stable pulmonary opacities likely combination of atelectasis and airspace disease. 3. Stable pleural effusions. Stable loculated left pleural fluid and or thickening extending to the apex. Impression By: Robert Ratliff M.D.RADIOLOGY - XR CHEST 1 V 07/19 5714 Report Impression - Status: SIGNED Entered: 07/19/2022 1126 IMPRESSION: Bibasilar consolidation has some improved aeration bilaterally. Small bilateral pleural effusions. Mild atelectasis about the left perihilar region. No other focal infiltrates within the lungs. Left apical pleural thickening similar to prior study. Impression By: [email or web address] Yasmin Alonzo M.D. Diagnosis, Assessment PlanFree Text A P:Non-STEMIMultivessel CADS/p CABG r9Hgvvards deconditioningImpaired mobility and gaitPostoperative anemiaDyslipidemiaHypertensionAKIAcute systolic heart failureHemodynamic issues postopLeukocytosis trending downPleural effusion and atelectasis Plan:Continue PT/OTOut of bed to chairWork on strength, bed mobility, transfers, gaitSternal precautionIncrease enduranceFall precautionsMonitor p.o. intake and nutritionStrict decubitus precautionsMonitor anemia. Persistent left pneumothorax. IR guided pigtail place. CXR shows expansion of the lung Urology consulted -Pt on FlomaxNephrology managing renal issues and elevated K+Utilize IS to reduce atelectasisAdvance therapies as toleratedPt lives alone and has 5 to 6 stairs to enter houseSNF order has been placed. Will require insurance approval for SNF, dialysis clinic acceptance, approval for [facility] prior to discharge Total time was 33 minutes > 50% with patient performing physical examination, discussing plan of care, goals, therapies, progress, medications, labs, SNF. All questions answeredRehab attestation:. at 0437 RPT #:[id number] OF REPORTPRProgress [id number] Available for patient [id number] [facility]L 2022-07-19 17:21:00 [id number] [facility] ([facility])Nephrology Progress NoteREPORT#:[id number] REPORT STATUS: SignedDATE:07/19/22 TIME: 1721 PATIENT: SHERRI ARCE UNIT #: [id number]#: [id number] RO[address]DOB: [birth year] AGE: 81 SEX: M ATTEND: Srinath Kaur [facility] AUTHOR: Jackie Wan MD * ALL edits or amendments must be made on the electronic/computer document * SubjectiveChief complaint:Feeling okay and has no complaints at this time. Review of SystemsConstitutional:Reports: generalized weakness. All systems rev neg: except as marked Objective GeneralVS/I O:Vital Signs: Date Time Temp Pulse Resp B/P [...] 2300 87 29 120/60 84 92 07/18 2116 99.5 86 14 122/66 84.6 92 Room air 07/188 98 Room air 21 24 hour I O ending at 0700: 07/19 0700 07/18 1900 Intake Total 500 850.00 Output Total 700 1050 Balance -200 -200.00 Intake, 0 Hemodialysis Intake, IV 50.00 Intake, Oral 500 800 Output, Urine 700 1050 Patient 86.9 kg Weight Weight Standing scale Measurement Method PATIENT WEIGHT: Weight (lb): 191Weight (oz): 9.31Weight (kg): 86.900 MedicationsActive Meds + DC'd Last 24 HrsMidodrine (PROAMATINE) 5 MG 0900,1300,1700 PRN PO Sodium Chloride (SODIUM CHLORIDE) 10 ML ASDIR IV Amiodarone HCl (CORDARONE) 200 MG BID PO Ipratropium [place] (ATROVENT) 500 MCG RTQ2H PRN PRN INH Lactulose (LACTULOSE) 20 GM DAILY PRN PRN PO Cyanocobalamin (Vitamin B-12 500 mcg tab) 500 MCG DAILY PO Ferrous Sulfate (FERROUS SULFATE) 325 [...] (Senna Lax 8.6 MG TABLET) 17.2 MG BEDTIME PO Ipratropium [place] (ATROVENT) 500 MCG RTQ4H INH Acetaminophen (TYLENOL) 650 MG Q4H PRN PRN PO Acetaminophen (TYLENOL) 650 MG Q4H PRN PRN RECTAL Dextrose/Water (DEXTROSE 10% IN WATER) 125 ML ASDIR PRN IV (CKD) Dextrose/Water (DEXTROSE 10% IN WATER) 250 ML ASDIR PRN IV (CKD) Glucagon (GLUCAGON) 1 MG ASDIR PRN IM Magnesium Sulfate (MAGNESIUM SULFATE 4GM/SWFI 100ML) 100 ML ASDIR PRN IV Magnesium Sulfate (MAGNESIUM SULFATE 2GM/SWFI 50ML) 50 ML ASDIR PRN IV Magnesium Sulfate/Dextrose (MAGNESIUM SULFATE 1GM/D5W 100ML) 100 ML ASDIR PRN IV Ondansetron HCl (ZOFRAN) 4 MG Q6H PRN PRN IV Albumin Human (ALBUMINAR-25%) 12.5 GM ASDIR PRN IV Heparin Sodium (Porcine) (HEPARIN SODIUM) 3,000 UNIT ASDIR PRN DIALYSIS Lidocaine HCl (LIDOCAINE HCL/PF) 0.5 ML ASDIR PRN I-DERMAL (CKD) Mannitol (Mannitol 20%) 12.5 GM ASDIR PRN IV Sodium Chloride (SODIUM CHLORIDE 0.9%) 2,000 ML ASDIR PRN IV Tamsulosin HCl (Flomax 0.4 mg) 0.4 MG BEDTIME PO Dietitian nutrition assessmentThe data set between the solid lines has been imported from the dietitian's assessment. BMI Calculated: 26.0Nutrition related diagnosis: Nutrition diagnosis details: Nutrition problem: Increased nutrient needsNutrition etiology: Chronic diseaseNutrition signs and symptoms: ESTIMATED NEEDS S/P CABGNutrition prescription: 1. RECOMMEND CONTINUE RENAL DIET. 2. CONTINUE NEPRO BID. 3. MONITOR PO, WT, LABS, BM.Dietitian name: Trang Rodriguez DIETAssessment completed: 07/16/22 Physical ExamGeneral appearance: alert, awake, orientedHead/eyes: atraumatic, normocephalicENT: moist mucous membranes, normal noseNeck: non-tender, no JVDCardiovascular: regular rate and rhythmRespiratory: clear to auscultationAbdomen: non-tender, softGenitourinary: no bladder distentionExtremities: no edema, no swellingNeuro/GIFT OFFICER: alert, oriented X 3, normal speechSkin: dry, intact ResultsFindings/Data:Laboratory Tests 07/1915 0515 Chemistry Sodium (134 - [...] (Auto) (14.0 - 32.0 %) 9.3 L Starke % (Auto) (4.8 - 9.0 %) 8.1 Eos % (Auto) (0.3 - 3.7 %) 7.9 H Baso % (Auto) (0.0 - 2.0 %) 0.7 Neut # (Auto) (2.0 - 7.6 x10 3/uL) 8.15 H Lymph # (Auto) (1.0 - 3.8 x10 3/uL) 1.05 Starke # (Auto) (0.1 - 0.8 x10 3/uL) 0.91 H Eos # (Auto) (0.0 - 0.2 x10 3/uL) 0.89 H Baso # (Auto) (0.0 - 0.2 x10 3/uL) 0.08 Abs Immat Gran (auto) (0.00 - 0.03 x10 3/uL) 0.19 H Add Manual Diff NO Immature Gran % (0.0 - 2.0 %) 1.7 Nucleated RBC % (0 - 0 %) 0.0 Nucleated RBCs # (Man) (0.0 - 0.1 x10 3/uL) 0.00 Radiology data:Recent Impressions:RADIOLOGY - XR CHEST 1 V 07/19 0754 Report Impression - Status: SIGNED Entered: 07/19/2022 1126 IMPRESSION: Bibasilar consolidation has some improved aeration bilaterally. Small bilateral pleural effusions. Mild atelectasis about the left perihilar region. No other focal infiltrates within the lungs. Left apical pleural thickening similar to prior study. Impression By: [email or web address] - Chaim Alonzo M.D. Treatment Prophylaxis Treatment ProphylaxisDrain(s)/tube(s): Drain(s)/tube(s): chest Diagnosis, Assessment PlanFree Text A P:Assessment:1-CLAUDETTE likely from urinary retention. oliguric CLAUDETTE now post op, and shock!2- non-STEMI: multivessel disease w main left. S/P CABG X5 on - BPH. Waters catheter is in place.4-severe bilateral hydronephrosis5- shock : Cardiogenic resolved. 6-hyperlipidemia7- AGMA resolved. Plan:- unknown Scr baseline.- Ultrasound showed severe bilateral hydronephrosis and medical renal disease. Continue Waters catheter. Urology consulted. - He underwent LHC on 07/03. - Started on HD on 07/04. - s/p CABG X5 on 07/08-Adequate urine output volume after Lasix but no clearance.- stopped NaHCO3 as started on HD. -TDC placed 07/15. stble from nephrology for discharge to SNF Consultants: cardiology, cardiovascular surgery, nephrology at 1723 RPT #:[id number] OF REPORTPRProgress [id number] Available for patient [id number] [facility]L 2022-07-19 13:58:00 [id number] [facility] ([facility])Cardiothoracic Surgery ProgREPORT#:[id number] REPORT STATUS: SignedDATE:07/19/22 TIME: 1358 PATIENT: SHERRI ARCE UNIT #: [id number]#: [id number] [address] [birth year] AGE: 81 SEX: M ATTEND: Srinath Kaur MDA AUTHOR: Rosalind Toribio 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 Allergy/Immun:Denies: allergic reaction. Respiratory:Denies: SOB. Cardiovascular:Denies: chest pain, palpitations. GI:Denies: abdominal pain, nausea, vomiting. :Denies: dysuria, hematuria. Heme:Denies: bleeding. Neuro:Denies: dizziness, headache, vision change. All systems rev neg: except as marked Objective GeneralVS/I OLast Documented: Result Date Time Pulse Ox 95 07/19 902 O2 Delivery Room air 07/19 902 B/P 119/79 07/19 827 B/P Mean 0.0 07/19 827 Temp 98.1 07/19 827 Pulse 91 07/19 827 Resp 20 07/19 827 FiO2 21 07/18 2058 O2 Flow Rate 3 07/14 1151 24 hour I O ending at 0700: 07/19 0700 07/18 1900 Intake Total 500 850.00 Output Total 700 1050 Balance -200 -200.00 Intake, 0 Hemodialysis Intake, IV 50.00 Intake, Oral 500 800 Output, Urine 700 1050 Patient 192 lb Weight Weight Standing scale Measurement Method PATIENT WEIGHT: Weight (lb): 191Weight (oz): 9.31Weight (kg): 86.900 Physical ExamGeneral appearance: alert, oriented, pleasant, mental status normal, no respiratory distressWound/incision: Location:sternal Site condition: edges approximated, incision intactHEENT: anicteric, mucosal membranes moistNeck: supple/no meningismusCardiovascular: normal heart sounds, regular rate rhythmRespiratory: aerating well, symmetric expansion, no distressAbdomen: soft, non-tender, no distentionGenitourinary: no foleyExtremities: moves allNeuro/GIFT OFFICER: alert, oriented X 3, normal speech, no motor deficitsPsychiatry: normal affect, normal mood Current MedicationsMedications:Active Meds + DC'd Last 24 HrsMidodrine (PROAMATINE) 5 MG 0900,1300,1700 PRN PO Sodium Chloride (SODIUM CHLORIDE) 10 ML ASDIR IV Amiodarone HCl (CORDARONE) 200 MG BID PO Ipratropium [place] (ATROVENT) 500 MCG RTQ2H PRN PRN INH Lactulose (LACTULOSE) 20 GM DAILY PRN PRN PO Cyanocobalamin (Vitamin B-12 500 mcg tab) 500 MCG DAILY PO Ferrous Sulfate (FERROUS SULFATE) 325 [...] (Senna Lax 8.6 MG TABLET) 17.2 MG BEDTIME PO Ipratropium [place] (ATROVENT) 500 MCG RTQ4H INH Acetaminophen (TYLENOL) 650 MG Q4H PRN PRN PO Acetaminophen (TYLENOL) 650 MG Q4H PRN PRN RECTAL Dextrose/Water (DEXTROSE 10% IN WATER) 125 ML ASDIR PRN IV (CKD) Dextrose/Water (DEXTROSE 10% IN WATER) 250 ML ASDIR PRN IV (CKD) Glucagon (GLUCAGON) 1 MG ASDIR PRN IM Magnesium Sulfate (MAGNESIUM SULFATE 4GM/SWFI 100ML) 100 ML ASDIR PRN IV Magnesium Sulfate (MAGNESIUM SULFATE 2GM/SWFI 50ML) 50 ML ASDIR PRN IV Magnesium Sulfate/Dextrose (MAGNESIUM SULFATE 1GM/D5W 100ML) 100 ML ASDIR PRN IV Ondansetron HCl (ZOFRAN) 4 MG Q6H PRN PRN IV Albumin Human (ALBUMINAR-25%) 12.5 GM ASDIR PRN IV Heparin Sodium (Porcine) (HEPARIN SODIUM) 3,000 UNIT ASDIR PRN DIALYSIS Lidocaine HCl (LIDOCAINE HCL/PF) 0.5 ML ASDIR PRN I-DERMAL (CKD) Mannitol (Mannitol 20%) 12.5 GM ASDIR PRN IV Sodium Chloride (SODIUM CHLORIDE 0.9%) 2,000 ML ASDIR PRN IV Tamsulosin HCl (Flomax 0.4 mg) 0.4 MG BEDTIME PO ResultsFindings/Data:Laboratory Tests 07/1915 0515 Chemistry Sodium (134 - [...] (Auto) (14.0 - 32.0 %) 9.3 L Starke % (Auto) (4.8 - 9.0 %) 8.1 Eos % (Auto) (0.3 - 3.7 %) 7.9 H Baso % (Auto) (0.0 - 2.0 %) 0.7 Neut # (Auto) (2.0 - 7.6 x10 3/uL) 8.15 H Lymph # (Auto) (1.0 - 3.8 x10 3/uL) 1.05 Starke # (Auto) (0.1 - 0.8 x10 3/uL) 0.91 H Eos # (Auto) (0.0 - 0.2 x10 3/uL) 0.89 H Baso # (Auto) (0.0 - 0.2 x10 3/uL) 0.08 Abs Immat Gran (auto) (0.00 - 0.03 x10 3/uL) 0.19 H Add Manual Diff NO Immature Gran % (0.0 - 2.0 %) 1.7 Nucleated RBC % (0 - 0 %) 0.0 Nucleated RBCs # (Man) (0.0 - 0.1 x10 3/uL) 0.00 Radiology data:Recent Impressions:RADIOLOGY - XR CHEST 1 V 07/19 0754 Report Impression - Status: SIGNED Entered: 07/19/2022 1126 IMPRESSION: Bibasilar consolidation has some improved aeration bilaterally. Small bilateral pleural effusions. Mild atelectasis about the left perihilar region. No other focal infiltrates within the lungs. Left apical pleural thickening similar to prior study. Impression By: [email or web address] - Chaim Alonzo M.D. Treatment Prophylaxis Treatment ProphylaxisDrain(s)/tube(s): Drain(s)/tube(s): chest Quality: Trauma Gen Surg Advanced Care Plan 65 or OlderDiscussed with: patientDiscussion included: living will (none), power of school commissioner (none), code status (full code) Diagnosis, Assessment PlanHospital course to date:This is a 81-year-old gentleman who presented to an outside hospital with complaints of chest pains while walking at his home on Thursday. He denies any previous history of coronary artery disease or other [place]. He was seen and evaluated at [facility]. He was found to have a urinary tract infection with urinary retention and acute kidney. He was started on dialysis via a left femoral temporary catheter. He underwent dialysis on Thursday, Thursday. Renal has been consultedDuring his work-up at outside hospital he underwent Left heart catheterization showing severe Left Main 70%. LAD: Proximal diffuse 80% stenosis and then diffuse 60% in the midsegment and on the distal segment, there is focal 70% stenosis. Diagonal branches with luminal irregularities. Left circumflex, codominant circulation with proximal 80%, mid 80 to 90% and then in the OM, there is proximal 60%, distal left circumflex has a 70% stenosis. RCA large and dominant with proximal 40% stenosis, mid 60% stenosis and then diffuse 50% stenosis all the way distally and the PLV and the PDA with luminal irregularities. CV surgery consulted for evaluation for coronary bypass graft. CAROTIDS- No carotid stenosis CT chest complete IMPRESSION: Small bilateral pleural effusions with bibasilar atelectasis. Echo:1. Left ventricle: The cavity size is at the upper limits of normal. Wall thickness is mildly increased. Systolic function is severely reduced. The estimated ejection fraction is 30-34%. Moderate hypokinesis of the entire myocardium. Doppler parameters are consistent with abnormal left ventricular relaxation (grade 1 diastolic dysfunction).2. Pericardium, extracardiac: A small pericardial effusion is identified along the left ventricular free wall, along the right ventricular free wall, and along the right atrial free wall. Assessment/Plan1) CAD Mutlivessel Will obtain echo,carotids. 2) CLAUDETTE Started dialysis on Creatine 7.3 Renal consulted. 3) BPH- Urinary retention. Waters in place Workup for CABG underway. Will get functional assessment with PT. PFT pending Carotid dopplers- No disease Echo PendingDialyiss per Renal. Baseline Cr unknown. 07/04 07/04 Doing well today, alert, up in the chair. Denies chest painEchocardiogram showed LVEF 30 to 34%, mild MR, trivial TRCT chest images reviewedEncourage I-S and mobilizationCreatinine 5.5 from 7.3, good urine output. Renal US showed bilateral severe hydronephrosis. Plan for HD today and tomorrow Will tentatively schedule patient for surgery on Thursday.Patient seen and plan reviewed with Dr Schwarz 07/05 Remains in a stable condition, denies chest pain BUN 53, creatinine 5.4. Plan for hemodialysis today and tomorrow for clearanceHe is also on Lasix 20 mg IV twice daily, urine output 1.1 L overnightWe will calculate risk of surgery with STS scoreEncourage I-S and mobilizationWill tentatively schedule patient for surgery on Thursday.Pt seen and plan reviewed with Dr Schwarz 07/06 BUN 36, creatinine 4.4. Plan for hemodialysis todayAwaiting CABG tomorrowSurgery, risks involved, STS score, benefits, complications and alternatives were explained to the patient. He acknowledged understanding and is willing to proceedN.p.o. after midnightPatient seen and plan reviewed with Dr. Schwarz 07/09/22OUMOU 1CABG x 5 (MISTRY-LAD, SVG-Aldonna, SVG-OM1< SVG-OM3, SVG-PDA), ALAA, EVH (RGSV)Patient hemodynamically unstable, on epi at 4, and vaso .04, decreased uop overnight- 150ccStarted patient on CRRT 2k/3.5Wean epi as tolerated, Cardiac incex 2.8-3labs and chest x-ray reviewed, electrolytes stable, hgb 6.5- transfuse 2 units PRBCOn 4l nasal cannula- encourage incentive spirometer and deep breathingKeep both chest tubes and monitor outputsGlycemic control on insulin dripCardiac dietBowel regimen protocolPain managementSCDs for DVT and PPI for GI prophylaxisPT/OTMonitor patient closely in CVICUPlan of care discussed with Dr. Schwarz 07/10/22POD 2Patient alert, awake, and oriented, no distres notedlabs and CXR reviewed stableBreathing comfortably on 3l nasal cannula- wean as tolerated to melissa O2 sats > 92%Encourage I-S use and deep breathingOn CRRT- able to remove 2.9L overnight- nephrology followingCardiac index 3.1- wean off epi dripKeep chest tubes for now and monitor outputsTransition to sliding scale insulin- cardiac dietTry to get patient out of bed to chair today- ambulate with PT/OTSCDs for DVT prophylaxisKeep patient in CVICU for close monitoring 07/11/22 3Patient in stable condition, overnight events noted- decreased urine output 35 ml last night-started on dopamine gtt for renal perfusionCardiac index 3.5- epi currently at 2- will discontinue today, vasopressin at 0.02, added low dose midodrine 2.5 mg TID, repeat echocardiogram.Renal Following- trial LasixPatient has Left femoral temp dialysis cath, Will need tunneled dialysis IJ cathplaced if need dialysis. On 5l nasal cannula- wean off as tolerated, encourage incentive spirometer and deep breathingKeep left pleural chest tube and monitor output- > 200 cc Tolerating diet, bowel regimen protocolPT/OT- patient out of bed to chair today- encourage ambulationDVT prophylaxis with SCDsMonitor patient closely in CVICUPlan discussed with multidisciplinary teamPlan discussed with Dr Schwarz/ Dr Rodríguez 07/12/22PO 5,Patient resting comfortable. Patient with hx of urinary retention- After standing today- voided 1.4 L. Needs Urology consult for retention K 5.4- HD in progress. Dr Plaza following. CT output 20- DC today. Pacers remain in place. 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 Card: Remains in sinus rhythm. Respir: on 7 L NC O2 95%Dispo: Rehab consultedPatient seen and exmained by Dr Rodríguez. Plan discussed with Team 07/13/22 5Patient with no new complaints. Recieved HD yesterday.Requiring less oxygen, now on 3l nasal cannula- continue to wean offCXR reviewed left apical pneumothorax 4cm/30%, Chest tube drained 140 overnight,placed back on suction to clear pneumo, CT drianed 200cc this AM. on suction. Labs reviewed- stable, decreased WBC, hgb stable, CR 3.9Eating welll, +BMUO- 550CC, BP improved on midodrine. Continue PT/OT, ambulation and incentive spirometer useRehab folowing Monitor in ICU todayDisucssed with Dr Schwarz- DC femoral line and Central line today. DC art line. Will re-eval need for dialysis cath Thursday. Consider tunnelled cath if need.Patient seen and examined by Dr Rodríguez. Plan discussed with Care team. 07/14POD 6Patient in stable condition, no distress notedRemains on room air, O2 sats > 92%, encourage I-S use and deep breathingCXR shows moderate left apical pneumothorax unchangedCT remained on suction, no airleak noConsult IR for pigtail chest tube placement this morningCardiac/renal dietLabs reviewed- K 5.1- repeat labs K 4.8Nephrology followingContinue therapy with PT/OTFollow up with urology for waters catheter- Dr Harris consulted.Monitor in CVICUPlan of care discussed with Dr Schwarz and multidisciplinary team 07/15/22POD 7Patient alert, awake, and oriented, no distress, no complaints at this timeBreathing comfortable on room airCXR shows resolved pneumothoraxLP and pigtail chest tube- no air leak noted, minimal output from LP 40 overnightLabs reviewed, K 5.2- corrected, follow up with nephrology to discuss need for dialysisTrend labs this afternoonBowel regimen, +gasFoley catheter discontinued per urology- voiding trial this AMAmbulation and incentive spirometer use encouragedDVT prophylaxis with SCDsKeep in ICU DISP: SNF- Case management Discussed plan of care with multidisciplinary team and Dr. Schwarz 3POD 8Patient doing well, alert, awake, and orientedO2 sats 93% on room air, encourage I-SCXR stable- no pneumo notedLeft pigtail chest tube - no air leak, clamped this morning, repeat CXRPlacement of tunneled dialysis catheter (BioFlo DuraMax 28 cm) yesterdayHD treatment done yesterday evening, plan for HD treatment today per nephrologyPatient failed voiding trial, waters catheter replaced- follow up with urologyEating wellContinue PT/OT- ambulationTransfer to CV 1 intermediate care unitDischarge planning for SNF- CM following and to set up dialysis chairPatient seen with Dr. Schwarz and discussed plan of care with multidisciplinary team. 07/17/22Patient in stable condition, no complaintsLabs and CXR reviewed- stableLeft pigtail chest tube discontinued yesterday- no pneumo notedRemains on room air, no distress- I-S encouragedCardiac diet, +BMKeep waters per urology f/u outpt, continue flomaxHD per nephrology- CM to setup outpt dialysis chairAwaiting bed availability on CV 1Discharge planning- SNFPlan of care discussed with multidisciplinary team and Dr. Schwarz. 07/18 Patient in stable condition, no complaintsRemains on room air, no distress- I-S encouragedEpicardial pacing wires discontinued. Limited echo to rule out pericardial effusionKeep waters per urology f/u outpt, continue flomaxHD per nephrology- CM to setup outpt dialysis chairDischarge planning- SNFPlan of care discussed with multidisciplinary team and Dr. Schwarz. 07/19 No new eventsEchocardiogram done, report pendingHD per nephrology- CM to setup outpt dialysis chairWaiting insurance approval for shelter facilityPatient seen and plan reviewed with Dr. Schwarz Consultants: cardiology, cardiovascular surgery, nephrology at 1402 at 1939 RPT #:[id number] OF REPORTPRProgress [id number] Available for patient [id number]:02:21 [facility] 2022-07-19 12:15:00 [id number] [place] [address] PATIENT NAME: SHERRI ARCE ADMIT DATE: 07/02/22ACCOUNT NO: [id number] ROOM NO: [id number] AGE: 81 REPORT TYPE: eECHOCARDIOGRAM REPORT SEX: M ADMITTING PHYSICIAN:Srinath Kaur MD ATTENDING PHYSICIAN:Srinath Kaur MD *[address] [address]Wwdul: [phone]: [phone] Limited Transthoracic Echocardiogram Patient: Kareem Arce Date: 07/18/2022 BP: 127 / 67 Location: STEFFIRN: [id number] : 1940 Age: 81 Height: 72 in / 182.9 cmAccession#: [id number] Gender: M Weight: 192.6 lb / 87.5 kgBMI/BSA: 26.2 kg/m 2 / 2.1 m 2 *Ordering Physician: * Rosalind Toribio *Interpreting Physician: * Prosper Ennis MD*Personnel Research Scientist: Ayanna Medrano Indications: POST CABG. Study data: Transthoracic echocardiogram, limited study. Procedure:Transthoracic echocardiography was performed. Image quality wasadequate. Limited 2D and limited spectral Doppler. Location: Bedside. Patient status: Inpatient. Patient room number: 3354. Study status:Routine. Findings Left ventricle: The cavity size is normal. Wall thickness is mildlyincreased. Systolic function is severely reduced. The estimated ejectionfraction is 30-34%.Right ventricle: The cavity size is normal. Systolic function is mildlyreduced.Left atrium: The atrium is mildly dilated.PATIENT NAME: SHERRI ARCE Right atrium: The atrium is normal in size.Pericardium: A trivial pericardial effusion is identified. Measurements Left ventricle Value 07/11/2022 Ref AARTI, [...] Value 07/11/2022 Ref Leaflet 1.96 cm --------- [facility], [facility] NAME: SHERRI ARCE Mitral valve Value 07/11/2022 Ref E-septal 2.6 cm --------- separation E-F slope 0.08 m/sec --------- Aortic root Value 07/11/2022 Ref Root diam, 3.31 cm --------- ED MM Conclusions Summary: 1. Left ventricle: The cavity size is normal. Wall thickness is mildly increased. Systolic function is severely reduced. The estimated ejection fraction is 30-34%.2. Right ventricle: Systolic function is mildly reduced.3. Left atrium: The atrium is mildly dilated.4. Pericardium, extracardiac: A trivial pericardial effusion is identified. Prepared and electronically signed by Prosper Ennis MD07/19/2022 12:14 at 1215 PATIENT NAME: SHERRI ARCE :15:00G.[id number] for patient [id number]:15:29 HCACL 2022-07-19 12:00:00 [id number]:00:00 [facility] ([facility])Hospitalist Progress NoteREPORT#:[id number] REPORT STATUS: SignedDATE:07/19/22 TIME: 1200 PATIENT: SHERRI ARCE UNIT #: [id number]#: [id number] [address] AGE: 81 SEX: M ATTEND: Srinath Kaur MDA AUTHOR: Srinath Kaur MD * ALL edits or amendments must be made on the electronic/computer document * SubjectiveChief complaint:SLEEPING NOWHPI:81 y/o man with PMHx of HTN, Dyslipidemia that [facility] with chest pain and found to have a NSTEMI and also acute renal failure. Underwent cardiac cath yesterday and found to have severe CAD including left main disease. Transfer here for CABG evaluation. He also underwent HD Thursday and Thursday of this week. HD catheter was place at [facility]. Currently not having any chest pain. Had chest pain with SOB when he presentted to the previous hospital. Objective GeneralVS/I O:Vital Signs: Date Time Temp Pulse Resp B/P B/P Pulse O2 O2 Flow FiO2 Mean Ox Delivery Rate 07/19 0903 [...] scale Measurement Method PATIENT WEIGHT: Weight (lb): 191Weight (oz): 9.31Weight (kg): 86.900 Medications:Active Meds + DC'd Last 24 HrsMidodrine (PROAMATINE) 5 MG 0900,1300,1700 PRN PO Sodium Chloride (SODIUM CHLORIDE) 10 ML ASDIR IV Amiodarone HCl (CORDARONE) 200 MG BID PO Ipratropium [place] (ATROVENT) 500 MCG RTQ2H PRN PRN INH Lactulose (LACTULOSE) 20 GM DAILY PRN PRN PO Cyanocobalamin (Vitamin B-12 500 mcg tab) 500 MCG DAILY PO Ferrous Sulfate (FERROUS SULFATE) 325 [...] (Senna Lax 8.6 MG TABLET) 17.2 MG BEDTIME PO Ipratropium [place] (ATROVENT) 500 MCG RTQ4H INH Acetaminophen (TYLENOL) 650 MG Q4H PRN PRN PO Acetaminophen (TYLENOL) 650 MG Q4H PRN PRN RECTAL Dextrose/Water (DEXTROSE 10% IN WATER) 125 ML ASDIR PRN IV (CKD) Dextrose/Water (DEXTROSE 10% IN WATER) 250 ML ASDIR PRN IV (CKD) Glucagon (GLUCAGON) 1 MG ASDIR PRN IM Magnesium Sulfate (MAGNESIUM SULFATE 4GM/SWFI 100ML) 100 ML ASDIR PRN IV Magnesium Sulfate (MAGNESIUM SULFATE 2GM/SWFI 50ML) 50 ML ASDIR PRN IV Magnesium Sulfate/Dextrose (MAGNESIUM SULFATE 1GM/D5W 100ML) 100 ML ASDIR PRN IV Ondansetron HCl (ZOFRAN) 4 MG Q6H PRN PRN IV Albumin Human (ALBUMINAR-25%) 12.5 GM ASDIR PRN IV Heparin Sodium (Porcine) (HEPARIN SODIUM) 3,000 UNIT ASDIR PRN DIALYSIS Lidocaine HCl (LIDOCAINE HCL/PF) 0.5 ML ASDIR PRN I-DERMAL (CKD) Mannitol (Mannitol 20%) 12.5 GM ASDIR PRN IV Sodium Chloride (SODIUM CHLORIDE 0.9%) 2,000 ML ASDIR PRN IV Tamsulosin HCl (Flomax 0.4 mg) 0.4 MG BEDTIME PO Physical ExamGeneral appearance: chronically ill appearing, frail, sleeping comfortablyNeck: no JVDCardiovascular: normal heart sounds, regular rate rhythmRespiratory: aerating well, clear to auscultation, symmetric expansion, no distressAbdomen: non-tender, normal bowel sounds, soft, no distention, no guarding, no reboundExtremities: no edemaMusculoskeletal: normal inspectionNeuro/GIFT OFFICER: normal speech, no motor deficits, no sensory deficitsSkin: intact, normal color, no rashPsychiatry: normal affect ResultsFindings/Data:Laboratory Tests 07/19 07/19 07/18 0515 0515 1331 [...] (Auto) (14.0 - 32.0 %) 9.3 L Starke % (Auto) (4.8 - 9.0 %) 8.1 Eos % (Auto) (0.3 - 3.7 %) 7.9 H Baso % (Auto) (0.0 - 2.0 %) 0.7 Neut # (Auto) (2.0 - 7.6 x10 3/uL) 8.15 H Lymph # (Auto) (1.0 - 3.8 x10 3/uL) 1.05 Starke # (Auto) (0.1 - 0.8 x10 3/uL) 0.91 H Eos # (Auto) (0.0 - 0.2 x10 3/uL) 0.89 H Baso # (Auto) (0.0 - 0.2 x10 3/uL) 0.08 Abs Immat Gran (auto) (0.00 - 0.03 x10 3/uL) 0.19 H Add Manual Diff NO Immature Gran % (0.0 - 2.0 %) 1.7 Nucleated RBC % (0 - 0 %) 0.0 Nucleated RBCs # (Man) (0.0 - 0.1 x10 3/uL) 0.00 Radiology data:Recent Impressions:RADIOLOGY - XR CHEST 1 V 02/11 0754 Report Impression - Status: SIGNED Entered: 07/19/2022 1126 IMPRESSION: Bibasilar consolidation has some improved aeration bilaterally. Small bilateral pleural effusions. Mild atelectasis about the left perihilar region. No other focal infiltrates within the lungs. Left apical pleural thickening similar to prior study. Impression By: [email or web address] - Chaim Alonzo M.D. Diagnosis, Assessment PlanConsultants: cardiology, cardiovascular surgery, nephrology Free Text DxA P NotesFree text DxA P notes:NSTEMI, CAD (coronary artery disease), S/P CABG X 5 ON 07/08- STABLE, CARD/CTS SEEN, TX TO SNF SOON, EF 30-35% patient presented with NSTEMI and found to hve severe CAD. Cardiac cath shows: Left Main - Distal 70% LAD - Proximal 80% with another 60% and 70% lessions Cir - Proximal 80%,mid 80-90%, Distal 70% and OM 60% RCA - large dominant with proximal 40%, Mid 60%. Echo: ef 30-34%, mod hypokinesis of entire myocardium, grade 1 diastolic dysfunction Patient on ASA, plavix, BB and Statin on amiodarone, Beta-tomas as tolerated for low BP, Acute systolic heart failure - STABLE, NO CHARLY/BB DUE TO LOW BP, ON MIDODRINE PRN, EF 30-35% Echocardiac with estimated LVEF of 30 to 34% with grade 1 diastolic dysfunction-s/p Lasix 20 mg twice daily 07/05 -on metoprolol 12.5 mg bid on hold now, BP low-no ACEI/ spironolactione for CLAUDETTE-Start GDMT prior to discharge CLAUDETTE (acute kidney injury) DUE TO POST-OBS NEPHROPATHY - ON HD PRN, RENAL/UROL SEEN, NEEDS SNF WITH DIALYSIS ACCESS, CONT WATERS, FLOMAX, ABLE BODIED TANKERMAN FROM 7.0 TO 4.3 NOW No prior Hx of renal disease. hx of BPH and treated with Fosamax w/o improvement nd continue to have difficulty urinating. On admission was found to be on acute renal filaure and had received HD twice prior to arrival here (thursday and thursday). Creatinine this am was 7.4, BUN 68* Probably due to obstructive uropathy* waters already in place* Nephrology consuled for HD Anemia OF CD AND SURGICAL BLOOD LOSS - STABLE-Hemoglobin dropped to 6.5 s/p CABG 2 PRBC BT ordered 07/09 HTN (hypertension) - patient on metoprolol 12.5 mg BID, will adjust as needed On labetalol/hydralazine as needed Dyslipidemia on Lipitor 40mg po daliy. BPH (benign prostatic hyperplasia) - ABOVE, ON WATERS Started on Flomax at the previous hospital, will continue with it. Waters catheter in place, continue Waters catheter as per nephrology 07/05 Goiter Hx of Goiter and surgical resection. TSH 3.33, within normal limits. Patient is not on Thyroid medication. anemia of chronic kidney disease Hemoglobin 8.3, monitor DEBILITY - OT/PT SEEN, SNF TX SOON UTI continue Rocephin for empiric treatment pending results of urine culture No growth for 48 hours DVT prophylaxis: Heparin 5000 units every 8 hoursDiet: Cardiac dietCODE STATUS: Full code Disposition: Status post CABG x5 on 07/09, hemodialysis as per nephrology. Worked with PT in his room, on 2 L oxygen via nasal cannula. PT/OT on board. Rehab consulted. Transfer to floor. Quality: Gen Med Crit Care VTE ProphylaxisVTE prophylaxis initiated: yes at 1203 RPT #:[id number] OF REPORTPRProgress [id number]:00:[id number] Available for patient [id number]:03:43 HCACL 2022-07-19 10:01:00 [id number]:01:00 [facility] ([facility])Cardiology Progress NoteREPORT#:[id number] REPORT STATUS: SignedDATE:07/19/22 TIME: 1001 PATIENT: SHERRI ARCE UNIT #: [id number]#: [id number] [address] AGE: 81 SEX: M ATTEND: Srinath Kaur AUTHOR: Sonya Stacy AGACNP * ALL edits or amendments must be made on the electronic/computer document * SubjectivePatient reports:No: complaints. Objective GeneralVS/I O:24 hour I O ending at 0700: 07/19 0700 07/18 1900 Intake Total 500 850.00 Output Total 700 1050 Balance -200 -200.00 Intake, 0 Hemodialysis Intake, IV 50.00 Intake, Oral 500 800 Output, Urine 700 1050 Patient 86.9 kg Weight Weight Standing scale Measurement Method Vital Signs: Date Time Temp Pulse Resp B/P B/P Pulse O2 O2 Flow FiO2 Mean Ox Delivery Rate 07/19 0828 [...] 95 Room air PATIENT WEIGHT: Weight (lb): 191Weight (oz): 9.31Weight (kg): 86.900 Medications:Active Meds + DC'd Last 24 HrsMidodrine (PROAMATINE) 5 MG 0900,1300,1700 PRN PO Sodium Chloride (SODIUM CHLORIDE) 10 ML ASDIR IV Amiodarone HCl (CORDARONE) 200 MG BID PO Ipratropium [place] (ATROVENT) 500 MCG RTQ2H PRN PRN INH Lactulose (LACTULOSE) 20 GM DAILY PRN PRN PO Cyanocobalamin (Vitamin B-12 500 mcg tab) 500 MCG DAILY PO Ferrous Sulfate (FERROUS SULFATE) 325 [...] (Senna Lax 8.6 MG TABLET) 17.2 MG BEDTIME PO Ipratropium [place] (ATROVENT) 500 MCG RTQ4H INH Acetaminophen (TYLENOL) 650 MG Q4H PRN PRN PO Acetaminophen (TYLENOL) 650 MG Q4H PRN PRN RECTAL Dextrose/Water (DEXTROSE 10% IN WATER) 125 ML ASDIR PRN IV (CKD) Dextrose/Water (DEXTROSE 10% IN WATER) 250 ML ASDIR PRN IV (CKD) Glucagon (GLUCAGON) 1 MG ASDIR PRN IM Magnesium Sulfate (MAGNESIUM SULFATE 4GM/SWFI 100ML) 100 ML ASDIR PRN IV Magnesium Sulfate (MAGNESIUM SULFATE 2GM/SWFI 50ML) 50 ML ASDIR PRN IV Magnesium Sulfate/Dextrose (MAGNESIUM SULFATE 1GM/D5W 100ML) 100 ML ASDIR PRN IV Ondansetron HCl (ZOFRAN) 4 MG Q6H PRN PRN IV Albumin Human (ALBUMINAR-25%) 12.5 GM ASDIR PRN IV Heparin Sodium (Porcine) (HEPARIN SODIUM) 3,000 UNIT ASDIR PRN DIALYSIS Lidocaine HCl (LIDOCAINE HCL/PF) 0.5 ML ASDIR PRN I-DERMAL (CKD) Mannitol (Mannitol 20%) 12.5 GM ASDIR PRN IV Sodium Chloride (SODIUM CHLORIDE 0.9%) 2,000 ML ASDIR PRN IV Tamsulosin HCl (Flomax 0.4 mg) 0.4 MG BEDTIME PO Status post:07/08/22 CABG x 5 (MISTRY-LAD, SVG-Ladonna, SVG-OM1< SVG-OM3, SVG-PDA) ALAA Physical ExamGeneral appearance: alert, awakeHead/Eyes: atraumaticENT: moist mucosal membranesNeck: no JVDCardiovascular: CV assessment: pedal edema, regular rate and rhythm, no murmurRespiratory: decreased breath sounds, no distressAbdomen: soft, non-tender, normal bowel sounds, no distention, no guardingUpper extremity: UE assessment: normal temperature, no edemaLower extremity: LE assessment: edema (2 to 3+ pitting edema), normal temperature, no edemaMusculoskeletal: normal inspectionNeuro/GIFT OFFICER: alert, oriented X 3, normal speechSkin: dryPsychiatry: normal affect ResultsFindings/Data:Laboratory Tests 07/19 0515 1331 Chemistry Sodium (134 - 147 [...] (Auto) (14.0 - 32.0 %) 9.3 L Starke % (Auto) (4.8 - 9.0 %) 8.1 Eos % (Auto) (0.3 - 3.7 %) 7.9 H Baso % (Auto) (0.0 - 2.0 %) 0.7 Neut # (Auto) (2.0 - 7.6 x10 3/uL) 8.15 H Lymph # (Auto) (1.0 - 3.8 x10 3/uL) 1.05 Starke # (Auto) (0.1 - 0.8 x10 3/uL) 0.91 H Eos # (Auto) (0.0 - 0.2 x10 3/uL) 0.89 H Baso # (Auto) (0.0 - 0.2 x10 3/uL) 0.08 Abs Immat Gran (auto) (0.00 - 0.03 x10 3/uL) 0.19 H Add Manual Diff NO Immature Gran % (0.0 - 2.0 %) 1.7 Nucleated RBC % (0 - 0 %) 0.0 Nucleated RBCs # (Man) (0.0 - 0.1 x10 3/uL) 0.00 Laboratory Tests 07/19 0515 Chemistry Magnesium (1.80 - 2.40 mg/dL) 2.12 Radiology data:Recent Impressions:RADIOLOGY - XR CHEST 1 V 07/19 0754 Report Impression - Status: SIGNED Entered: 07/19/2022 1126 IMPRESSION: Bibasilar consolidation has some improved aeration bilaterally. Small bilateral pleural effusions. Mild atelectasis about the left perihilar region. No other focal infiltrates within the lungs. Left apical pleural thickening similar to prior study. Impression By: [email or web address] - Chaim Alonzo M.D. Results: labs reviewed, vital signs reviewed, rhythm personally rev'dTelemetry Interpretation:sinus rhythm Diagnosis, Assessment PlanProblem List/A P: 1. HTN (hypertension) 2. CLAUDETTE (acute kidney injury) 3. CAD (coronary artery disease) 4. Dyslipidemia 5. BPH (benign prostatic hyperplasia) Plan discussed with: patient, nurse Free Text DxA P NotesFree Text DxA P Notes:Mr. Arce is a pleasant 81 y/o M w/ PMHx: HTN, HLD presented to [facility] on 06/28/22 for chest pain and sob. He was diagnosed NSTEMI. [facility] showed multivessel CAD. Transferred to [facility] for CABG. 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 - CLAUDETTE - per nephrology likely from obstructive uropathy Renal ultrasound showed severe thickening of the bladder, cholelitiasis. urology consulted for bladded outlet obstruction and hydronephrosis, started on Flomax HD per nephro - HTN. bp stable, midodrine as needed - HLD. On statins. - Anemia. monitor Doing wellVS stable SNF pending at 1610 at 0754 RPT #:[id number] OF REPORTPRProgress [id number]:01:[id number] Available for patient [id number]:10:56 HCACL 2022-07-19 07:02:00 [id number]:02:00 [facility] ([facility])Rehab Progress NoteREPORT#:[id number] REPORT STATUS: SignedDATE:07/19/22 TIME: 701 PATIENT: SHERRI ARCE UNIT #: [id number]#: [id number] [address] AGE: 81 SEX: M ATTEND: Srinath Kaur [facility] AUTHOR: Magdaleno Washburn * ALL edits or amendments must be made on the electronic/computer document * SubjectiveChief complaint:Rehab follow-upDoing well. States feeling better every dayDenies pain or sobPleasantDenies NAIK/N/V/D/CP14 systems reviewed and neg. except that above. Objective GeneralVS:Vital Signs: Date Time Temp Pulse Resp B/P B/P Pulse O2 O2 Flow FiO2 Mean Ox Delivery Rate 07/19 0600 [...] 95 Room air PATIENT WEIGHT: Weight (lb): 191Weight (oz): 9.31Weight (kg): 86.900 Medications:Active Meds + DC'd Last 24 HrsMidodrine (PROAMATINE) 5 MG 0900,1300,1700 PRN PO Sodium Chloride (SODIUM CHLORIDE) 10 ML ASDIR IV Amiodarone HCl (CORDARONE) 200 MG BID PO Ipratropium [place] (ATROVENT) 500 MCG RTQ2H PRN PRN INH Lactulose (LACTULOSE) 20 GM DAILY PRN PRN PO Cyanocobalamin (Vitamin B-12 500 mcg tab) 500 MCG DAILY PO Ferrous Sulfate (FERROUS SULFATE) 325 [...] (Senna Lax 8.6 MG TABLET) 17.2 MG BEDTIME PO Ipratropium [place] (ATROVENT) 500 MCG RTQ4H INH Acetaminophen (TYLENOL) 650 MG Q4H PRN PRN PO Acetaminophen (TYLENOL) 650 MG Q4H PRN PRN RECTAL Dextrose/Water (DEXTROSE 10% IN WATER) 125 ML ASDIR PRN IV (CKD) Dextrose/Water (DEXTROSE 10% IN WATER) 250 ML ASDIR PRN IV (CKD) Glucagon (GLUCAGON) 1 MG ASDIR PRN IM Magnesium Sulfate (MAGNESIUM SULFATE 4GM/SWFI 100ML) 100 ML ASDIR PRN IV Magnesium Sulfate (MAGNESIUM SULFATE 2GM/SWFI 50ML) 50 ML ASDIR PRN IV Magnesium Sulfate/Dextrose (MAGNESIUM SULFATE 1GM/D5W 100ML) 100 ML ASDIR PRN IV Ondansetron HCl (ZOFRAN) 4 MG Q6H PRN PRN IV Albumin Human (ALBUMINAR-25%) 12.5 GM ASDIR PRN IV Heparin Sodium (Porcine) (HEPARIN SODIUM) 3,000 UNIT ASDIR PRN DIALYSIS Lidocaine HCl (LIDOCAINE HCL/PF) 0.5 ML ASDIR PRN I-DERMAL (CKD) Mannitol (Mannitol 20%) 12.5 GM ASDIR PRN IV Sodium Chloride (SODIUM CHLORIDE 0.9%) 2,000 ML ASDIR PRN IV Tamsulosin HCl (Flomax 0.4 mg) 0.4 MG BEDTIME PO Functional ProgressFunctional progress: Weightbearing: STERNAL Ambulation Distance: 200FT X2 Progression: Forward Backward Lateral, Right Lateral, Left Assistance Level: Minimal Assistance Gait Deviations: SLOW Base of Support - Narrow Effects of Treatment: Cardio tolerance improved Function Improved Gait quality improved Post TX Precautions: In Chair Call Light in Reach Nursing Notified Telephone in reach Review Plan of Care: Yes PT charges: Gait Training [id number] Gait Cmt: PATIENT SEMI-RECLINED IN BED UPON ARRIVAL AND REPORTS OF NO PAIN AND AGREEABLE [...] this is the patient's last treatment, this entry serves as the discharge summary: 075 Start Time: 749 Stop Time: 813 Treatment Time: (minutes) 0:24 Completed by: Galindo Berry Conference/Supervising PT: Yes Supervising Therapist: Sincere Doran . BED MOBILITY: Yes Rolling Right/Left: Minimal Assistance Supine to Sit: Minimal Assistance Sit to Supine: Not Tested Scooting in bed: Minimal Assistance TRANSFERS: Yes Bed to/from chair: Minimal Assistance Sit to/from stand: Minimal Assistance Physical ExamGeneral appearance: alert, awakePsych: alert, oriented x 3HEENT: anicteric, sclera clearNeck: supple, no JVDCardiovascular: regular rate rhythm, S1/Q5Qwtguyndnle: aerating well, clear bilaterallyAbdomen: bowel sounds present, non-distended, softSkin: intact, no rashMusculoskeletal - general: Musculoskeletal - general: joints normal, normal muscle mass, normal toneNeuro/GIFT OFFICER: alert, oriented X 3, CNII-XII intact ResultsFindings/Data:Laboratory Tests 07/18 07/18 07/18 07/17 07/17 1331 [...] - 32.0 %) 8.5 L 7.2 L Starke % (Auto) (4.8 - 9.0 %) 8.8 11.0 H Eos % (Auto) (0.3 - 3.7 %) 7.2 H 6.8 H Baso % (Auto) (0.0 - 2.0 %) 0.6 0.6 Neut # (Auto) (2.0 - 7.6 x10 3/uL) 9.05 H 7.90 H Lymph # (Auto) (1.0 - 3.8 x10 3/uL) 1.05 0.80 L Starke # (Auto) (0.1 - 0.8 x10 3/uL) 1.09 H 1.21 H Eos # (Auto) (0.0 - 0.2 x10 3/uL) 0.89 H 0.75 H Baso # (Auto) (0.0 - 0.2 x10 3/uL) 0.08 0.07 Abs Immat Gran (auto) (0.00 - 0.03 x10 3/uL) 0.21 H 0.31 H Add Manual Diff NO NO Immature Gran % (0.0 - 2.0 %) 1.7 2.8 H Nucleated RBC % (0 - 0 %) 0.0 0.0 Nucleated RBCs # (Man) (0.0 - 0.1 x10 3/uL) 0.00 0.00 Recent Impressions:RADIOLOGY - XR CHEST 1 V 07/16 1055 Report Impression - Status: SIGNED Entered: 07/16/2022 1158 IMPRESSION: 1. Small left and stable small right layering pleural effusion. 2. Left chest tube present. No pneumothorax. 3. Stable bibasilar airspace opacities Impression By: [email or web address] Yasmin Enriquez M.D.RADIOLOGY - XR CHEST 1 V 07/17 0554 Report Impression - Status: SIGNED Entered: 07/17/2022 0757 IMPRESSION: 1. Stable postoperative cardiomediastinal silhouette. 2. Stable pulmonary opacities. 3. Stable pleural effusions. Pleural fluid/thickening extending over the left apex. No pneumothorax following thoracostomy tube removal. Impression By: Robert Ratliff M.D.ULTRASOUND - DUP VEIN WOJCIECH 07/17 1519 Report Impression - Status: SIGNED Entered: 07/17/2022 1545 IMPRESSION: No evidence of deep vein thrombosis. Superficial thrombus in the right greater saphenous vein. Complex hypoechoic area in the right inguinal region without internal vascular flow or peripheral hyperemia measuring 4.2 x 1.4 x 2.3 cm which may represent a hematoma.Impression By: [email or web address] Yasmin Palma M.D.RADIOLOGY - XR CHEST 1 V 07/18 0559 Report Impression - Status: SIGNED Entered: 07/18/2022 0755 IMPRESSION: 1. Stable postoperative chest. 2. Stable pulmonary opacities likely combination of atelectasis and airspace disease. 3. Stable pleural effusions. Stable loculated left pleural fluid and or thickening extending to the apex. Impression By: Robert Ratliff M.D. Diagnosis, Assessment PlanFree Text A P:Non-STEMIMultivessel CADS/p CABG n8Jnahhpfx deconditioningImpaired mobility and gaitPostoperative anemiaDyslipidemiaHypertensionAKIAcute systolic heart failureHemodynamic issues postopLeukocytosis trending downPleural effusion and atelectasis Plan:Continue PT/OTOut of bed to chairWork on strength, bed mobility, transfers, gaitSternal precautionIncrease enduranceFall precautionsMonitor p.o. intake and nutritionStrict decubitus precautionsMonitor anemia. Persistent left pneumothorax. IR guided pigtail place. CXR shows expansion of the lung Urology consulted -Pt on FlomaxNephrology managing renal issues and elevated K+Utilize IS to reduce atelectasisAdvance therapies as toleratedPt lives alone and has 5 to 6 stairs to enter houseSNF order has been placed. Will require insurance approval for SNF, dialysis clinic acceptance, approval for [facility] prior to discharge Total time was 33 minutes > 50% with patient performing physical examination, discussing plan of care, goals, therapies, progress, medications, labs, SNF. All questions answeredConsultants: cardiology, cardiovascular surgery, nephrologyRehab attestation:. at 0520 RPT #:[id number] OF REPORTPRProgress [id number]:02:[id number] Available for patient [id number]:21:43 HCACL 2022-07-18 16:17:00 [id number]:17:00 [facility] ([facility])Nephrology Progress NoteREPORT#:[id number] REPORT STATUS: SignedDATE:07/18/22 TIME: 1617 PATIENT: SHERRI ARCE UNIT #: [id number]#: [id number] [address] AGE: 81 SEX: M ATTEND: Srinath Kaur [facility] AUTHOR: Evelina Plaza MD * ALL edits or amendments must be made on the electronic/computer document * SubjectiveChief complaint:Feeling okay and has no complaints at this time. Objective GeneralVS/I O:Vital Signs: Date Time Temp Pulse Resp B/P B/P Pulse O2 O2 Flow FiO2 Mean Ox Delivery Rate 07/18 1337 [...] 97 07/17 1946 92 Room air 07/17 194 98.1 85 16 126/62 83.3 91 24 hour I O ending at 0700: 07/18 0700 07/17 1900 Intake Total 150 Output Total 2300 Balance -2300 150 Intake, Oral 150 Number 3 Bowel Movements Output, Urine 2300 Patient 87.6 kg Weight Weight Bed scale Measurement Method PATIENT WEIGHT: Weight (lb): 193Weight (oz): 2Weight (kg): 87.600 MedicationsActive Meds + DC'd Last 24 HrsMidodrine (PROAMATINE) 5 MG 0900,1300,1700 PRN PO Sodium Chloride (SODIUM CHLORIDE) 10 ML ASDIR IV Amiodarone HCl (CORDARONE) 200 MG BID PO Albumin Human (ALBUMINAR-25%) 12.5 GM ASDIR PRN IV (DC) Sodium Chloride (SODIUM CHLORIDE) 10 ML ASDIR PRN IV (DC) Midodrine (PROAMATINE) 10 MG 0900,1300,1700 PO (DC) Ipratropium [place] (ATROVENT) 500 MCG RTQ2H PRN PRN INH Lactulose (LACTULOSE) 20 GM DAILY PRN PRN PO Cyanocobalamin (Vitamin B-12 500 mcg tab) 500 MCG DAILY PO Ferrous Sulfate (FERROUS SULFATE) 325 MG DAILY PO Dopamine HCl/Dextrose (DOPamine 400MG/D5W 250ML) 250 ML ASDIR IV (DC) Bisacodyl (DULCOLAX) 10 MG ONCE PRN RECTAL Atorvastatin Calcium (LIPITOR) 40 MG 2100 PO Clopidogrel Bisulfate (Plavix) 75 MG DAILY PO Polyethylene Glycol (MIRALAX) 17 GM DAILY PO Calcium Chloride (CALCIUM CHLORIDE) 1 GM ASDIR PRN IV (DC) Sodium Chloride (SODIUM CHLORIDE 0.9%) 100 MLCalcium Chloride (CALCIUM CHLORIDE) 2 GM ASDIR PRN IV (DC) Sodium Chloride (SODIUM CHLORIDE 0.9%) 100 MLMagnesium Sulfate (MAGNESIUM SULFATE 4GM/SWFI 100ML) 100 ML ASDIR PRN IV (DC) Magnesium Sulfate (MAGNESIUM SULFATE 2GM/SWFI 50ML) 50 ML ASDIR PRN IV (DC) Potassium Chloride (KCL 10MEQ/SWFI 50ML) 50 ML ASDIR PRN IV (DC) Sodium Chloride (SODIUM CHLORIDE 0.9%) 2,000 ML ASDIR PRN IV (DC) Sodium Phosphate (SODIUM PHOSPHATE) 25 MMOL ASDIR PRN IV (DC) Sodium Chloride (SODIUM CHLORIDE 0.9%) 250 MLSodium Phosphate (SODIUM PHOSPHATE) 20 MMOL ASDIR PRN IV (DC) Sodium Chloride (SODIUM CHLORIDE 0.9%) 250 MLSodium Phosphate (SODIUM PHOSPHATE) 15 MMOL ASDIR PRN IV (DC) Sodium Chloride (SODIUM CHLORIDE 0.9%) 250 MLPantoprazole (PROTONIX) 40 MG DAILY@0600 PO Aspirin (ASPIRIN) 81 MG DAILY PO Vasopressin (VASOSTRICT 20 Unit/NS 100ML) 100 ML ASDIR IV (DC) Docusate Sodium (COLACE) 100 MG BID PO Sennosides (Senna Lax 8.6 MG TABLET) 17.2 MG BEDTIME PO Ipratropium [place] (ATROVENT) 500 MCG RTQ4H INH Acetaminophen (TYLENOL) 650 MG Q4H PRN PRN PO Acetaminophen (TYLENOL) 650 MG Q4H PRN PRN RECTAL Calcium Chloride (CALCIUM CHLORIDE) 1 GM ASDIR PRN IV (DC) Dextrose/Water (DEXTROSE 10% IN WATER) 125 ML ASDIR PRN IV (CKD) Dextrose/Water (DEXTROSE 10% IN WATER) 250 ML ASDIR PRN IV (CKD) Epinephrine (ADRENALIN CHLORIDE) 4 MG ASDIR IV (DC) Dextrose/Water (DEXTROSE 5% WATER) 246 MLGlucagon (GLUCAGON) 1 MG ASDIR PRN IM Magnesium Sulfate (MAGNESIUM SULFATE 4GM/SWFI 100ML) 100 ML ASDIR PRN IV Magnesium Sulfate (MAGNESIUM SULFATE 2GM/SWFI 50ML) 50 ML ASDIR PRN IV Magnesium Sulfate/Dextrose (MAGNESIUM SULFATE 1GM/D5W 100ML) 100 ML ASDIR PRN IV Nitroglycerin/Dextrose (NITROGLYCERIN 50,000MCG/D5W 250ML) 250 ML ASDIR IV (DC) Norepinephrine Bitartrate (NOREPINEPHRINE 8 MG/NS 250 ML) 250 ML TITRATE IV (DC) Ondansetron HCl (ZOFRAN) 4 MG Q6H PRN PRN IV Potassium Chloride (KCL 20MEQ/SWFI 100ML) 100 ML ASDIR PRN IV (DC) Sodium Bicarbonate (SODIUM BICARBONATE) 50 MEQ ASDIR PRN IV (DC) Albumin Human (ALBUMINAR-25%) 12.5 GM ASDIR PRN IV Heparin Sodium (Porcine) (HEPARIN SODIUM) 3,000 UNIT ASDIR PRN DIALYSIS Lidocaine HCl (LIDOCAINE HCL/PF) 0.5 ML ASDIR PRN I-DERMAL (CKD) Mannitol (Mannitol 20%) 12.5 GM ASDIR PRN IV Sodium Chloride (SODIUM CHLORIDE 0.9%) 2,000 ML ASDIR PRN IV Tamsulosin HCl (Flomax 0.4 mg) 0.4 MG BEDTIME PO Physical ExamGeneral appearance: alert, awakeHead/eyes: atraumatic, normocephalicENT: moist mucous membranes, normal noseNeck: non-tender, no JVDExtremities: no edema, no swellingNeuro/GIFT OFFICER: alert, oriented X 3, normal speechSkin: dry, intact ResultsFindings/Data:Laboratory Tests 07/18 07/18 07/18 1331 0618 0618 [...] (Auto) (14.0 - 32.0 %) 8.5 L Starke % (Auto) (4.8 - 9.0 %) 8.8 Eos % (Auto) (0.3 - 3.7 %) 7.2 H Baso % (Auto) (0.0 - 2.0 %) 0.6 Neut # (Auto) (2.0 - 7.6 x10 3/uL) 9.05 H Lymph # (Auto) (1.0 - 3.8 x10 3/uL) 1.05 Starke # (Auto) (0.1 - 0.8 x10 3/uL) 1.09 H Eos # (Auto) (0.0 - 0.2 x10 3/uL) 0.89 H Baso # (Auto) (0.0 - 0.2 x10 3/uL) 0.08 Abs Immat Gran (auto) (0.00 - 0.03 x10 3/uL) 0.21 H Add Manual Diff NO Immature Gran % (0.0 - 2.0 %) 1.7 Nucleated RBC % (0 - 0 %) 0.0 Nucleated RBCs # (Man) (0.0 - 0.1 x10 3/uL) 0.00 Radiology data:Recent Impressions:RADIOLOGY - XR CHEST 1 V 07/18 0559 Report Impression - Status: SIGNED Entered: 07/18/2022 0755 IMPRESSION: 1. Stable postoperative chest. 2. Stable pulmonary opacities likely combination of atelectasis and airspace disease. 3. Stable pleural effusions. Stable loculated left pleural fluid and or thickening extending to the apex. Impression By: Robert Ratliff M.D. Treatment Prophylaxis Treatment ProphylaxisDrain(s)/tube(s): Drain(s)/tube(s): chest Diagnosis, Assessment PlanFree Text A P:Assessment:1-CLAUDETTE likely from urinary retention. oliguric CLAUDETTE now post op, and shock!2- non-STEMI: multivessel disease w main left. S/P CABG X5 on - BPH. Waters catheter is in place.4-severe bilateral hydronephrosis5- shock : Cardiogenic resolved. 6-hyperlipidemia7- AGMA resolved. Plan:- unknown Scr baseline.- Ultrasound showed severe bilateral hydronephrosis and medical renal disease. Continue Waters catheter. Urology consulted. - He underwent LHC on 07/03. - Started on HD on 07/04. - s/p CABG X5 on 07/08-Adequate urine output volume after Lasix but no clearance.- stopped NaHCO3 as started on HD. -TDC placed 07/15. plan for HD again on 07/16. HD 07/18 today for clearance- repeat labs in am and assess need for HD. stble from nephrology for discharge to [facility] Consultants: cardiology, cardiovascular surgery, nephrology at 1623 RPT #:[id number] OF REPORTPRProgress [id number] Available for patient [id number]:00 [facility]ACL 2022-07-18 15:13:00 [id number]:00 [facility] ([facility])Cardiothoracic Surgery ProgREPORT#:[id number] REPORT STATUS: SignedDATE:07/18/22 TIME: 1513 PATIENT: SHERRI ARCE UNIT #: [id number]#: [id number] [address] AGE: 81 SEX: M ATTEND: Srinath Kaur AUTHOR: Rosalind Toribio PREMIUM CARD CANCELLATION CLERK * ALL edits or amendments must be made on the electronic/computer document * GeneralPost-op: day 9Status post:07/08/22 CABG x 5 (MISTRY-LAD, SVG-Ladonna, SVG-OM1< SVG-OM3, SVG-PDA) ALEXIS TATUM (RGSV) SubjectiveChief complaint:s/p CABG no complaints Review of SystemsConstitutional:Denies: chills, fever, malaise. Allergy/Immun:Denies: allergic reaction. Respiratory:Denies: SOB. Cardiovascular:Denies: chest pain, palpitations. GI:Denies: abdominal pain, nausea, vomiting. :Denies: dysuria, hematuria. Heme:Denies: bleeding. Neuro:Denies: dizziness, headache, vision change. All systems rev neg: except as marked Objective GeneralDietitian Nutrition assessmentThe data set between the solid lines has been imported from the dietitian's assessment. BMI Calculated: 26.2Nutrition related diagnosis: Nutrition diagnosis details: Nutrition problem: Increased nutrient needsNutrition etiology: Chronic diseaseNutrition signs and symptoms: ESTIMATED NEEDS S/P CABGNutrition prescription: 1. RECOMMEND CONTINUE RENAL DIET. 2. CONTINUE NEPRO BID. 3. MONITOR PO, WT, LABS, BM.Dietitian name: Trang Rodriguez, DIETAssessment completed: 07/16/22 Physical ExamGeneral appearance: alert, orientedWound/incision: Location:sternal Site condition: edges approximated, incision intactHEENT: anicteric, mucosal membranes moistNeck: supple/no meningismusCardiovascular: normal heart sounds, regular rate rhythmRespiratory: aerating well, symmetric expansion, no distressAbdomen: soft, non-tender, no distentionGenitourinary: no foleyExtremities: moves allNeuro/GIFT OFFICER: alert, oriented X 3, normal speech, no motor deficitsPsychiatry: normal affect, normal mood Current MedicationsMedications:Active Meds + DC'd Last 24 HrsMidodrine (PROAMATINE) 5 MG 0900,1300,1700 PRN PO Sodium Chloride (SODIUM CHLORIDE) 10 ML ASDIR IV Amiodarone HCl (CORDARONE) 200 MG BID PO Albumin Human (ALBUMINAR-25%) 12.5 GM ASDIR PRN IV (DC) Sodium Chloride (SODIUM CHLORIDE) 10 ML ASDIR PRN IV (DC) Midodrine (PROAMATINE) 10 MG 0900,1300,1700 PO (DC) Ipratropium [place] (ATROVENT) 500 MCG RTQ2H PRN PRN INH Lactulose (LACTULOSE) 20 GM DAILY PRN PRN PO Cyanocobalamin (Vitamin B-12 500 mcg tab) 500 MCG DAILY PO Ferrous Sulfate (FERROUS SULFATE) 325 MG DAILY PO Dopamine HCl/Dextrose (DOPamine 400MG/D5W 250ML) 250 ML ASDIR IV (DC) Bisacodyl (DULCOLAX) 10 MG ONCE PRN RECTAL Atorvastatin Calcium (LIPITOR) 40 MG 2100 PO Clopidogrel Bisulfate (Plavix) 75 MG DAILY PO Polyethylene Glycol (MIRALAX) 17 GM DAILY PO Calcium Chloride (CALCIUM CHLORIDE) 1 GM ASDIR PRN IV (DC) Sodium Chloride (SODIUM CHLORIDE 0.9%) 100 MLCalcium Chloride (CALCIUM CHLORIDE) 2 GM ASDIR PRN IV (DC) Sodium Chloride (SODIUM CHLORIDE 0.9%) 100 MLMagnesium Sulfate (MAGNESIUM SULFATE 4GM/SWFI 100ML) 100 ML ASDIR PRN IV (DC) Magnesium Sulfate (MAGNESIUM SULFATE 2GM/SWFI 50ML) 50 ML ASDIR PRN IV (DC) Potassium Chloride (KCL 10MEQ/SWFI 50ML) 50 ML ASDIR PRN IV (DC) Sodium Chloride (SODIUM CHLORIDE 0.9%) 2,000 ML ASDIR PRN IV (DC) Sodium Phosphate (SODIUM PHOSPHATE) 25 MMOL ASDIR PRN IV (DC) Sodium Chloride (SODIUM CHLORIDE 0.9%) 250 MLSodium Phosphate (SODIUM PHOSPHATE) 20 MMOL ASDIR PRN IV (DC) Sodium Chloride (SODIUM CHLORIDE 0.9%) 250 MLSodium Phosphate (SODIUM PHOSPHATE) 15 MMOL ASDIR PRN IV (DC) Sodium Chloride (SODIUM CHLORIDE 0.9%) 250 MLPantoprazole (PROTONIX) 40 MG DAILY@0600 PO Aspirin (ASPIRIN) 81 MG DAILY PO Vasopressin (VASOSTRICT 20 Unit/NS 100ML) 100 ML ASDIR IV (DC) Docusate Sodium (COLACE) 100 MG BID PO Sennosides (Senna Lax 8.6 MG TABLET) 17.2 MG BEDTIME PO Ipratropium [place] (ATROVENT) 500 MCG RTQ4H INH Acetaminophen (TYLENOL) 650 MG Q4H PRN PRN PO Acetaminophen (TYLENOL) 650 MG Q4H PRN PRN RECTAL Calcium Chloride (CALCIUM CHLORIDE) 1 GM ASDIR PRN IV (DC) Dextrose/Water (DEXTROSE 10% IN WATER) 125 ML ASDIR PRN IV (CKD) Dextrose/Water (DEXTROSE 10% IN WATER) 250 ML ASDIR PRN IV (CKD) Epinephrine (ADRENALIN CHLORIDE) 4 MG ASDIR IV (DC) Dextrose/Water (DEXTROSE 5% WATER) 246 MLGlucagon (GLUCAGON) 1 MG ASDIR PRN IM Magnesium Sulfate (MAGNESIUM SULFATE 4GM/SWFI 100ML) 100 ML ASDIR PRN IV Magnesium Sulfate (MAGNESIUM SULFATE 2GM/SWFI 50ML) 50 ML ASDIR PRN IV Magnesium Sulfate/Dextrose (MAGNESIUM SULFATE 1GM/D5W 100ML) 100 ML ASDIR PRN IV Nitroglycerin/Dextrose (NITROGLYCERIN 50,000MCG/D5W 250ML) 250 ML ASDIR IV (DC) Norepinephrine Bitartrate (NOREPINEPHRINE 8 MG/NS 250 ML) 250 ML TITRATE IV (DC) Ondansetron HCl (ZOFRAN) 4 MG Q6H PRN PRN IV Potassium Chloride (KCL 20MEQ/SWFI 100ML) 100 ML ASDIR PRN IV (DC) Sodium Bicarbonate (SODIUM BICARBONATE) 50 MEQ ASDIR PRN IV (DC) Albumin Human (ALBUMINAR-25%) 12.5 GM ASDIR PRN IV Heparin Sodium (Porcine) (HEPARIN SODIUM) 3,000 UNIT ASDIR PRN DIALYSIS Lidocaine HCl (LIDOCAINE HCL/PF) 0.5 ML ASDIR PRN I-DERMAL (CKD) Mannitol (Mannitol 20%) 12.5 GM ASDIR PRN IV Sodium Chloride (SODIUM CHLORIDE 0.9%) 2,000 ML ASDIR PRN IV Tamsulosin HCl (Flomax 0.4 mg) 0.4 MG BEDTIME PO ResultsFindings/Data:Laboratory Tests 07/18 07/18 07/18 1331 0618 0618 [...] (Auto) (14.0 - 32.0 %) 8.5 L Starke % (Auto) (4.8 - 9.0 %) 8.8 Eos % (Auto) (0.3 - 3.7 %) 7.2 H Baso % (Auto) (0.0 - 2.0 %) 0.6 Neut # (Auto) (2.0 - 7.6 x10 3/uL) 9.05 H Lymph # (Auto) (1.0 - 3.8 x10 3/uL) 1.05 Starke # (Auto) (0.1 - 0.8 x10 3/uL) 1.09 H Eos # (Auto) (0.0 - 0.2 x10 3/uL) 0.89 H Baso # (Auto) (0.0 - 0.2 x10 3/uL) 0.08 Abs Immat Gran (auto) (0.00 - 0.03 x10 3/uL) 0.21 H Add Manual Diff NO Immature Gran % (0.0 - 2.0 %) 1.7 Nucleated RBC % (0 - 0 %) 0.0 Nucleated RBCs # (Man) (0.0 - 0.1 x10 3/uL) 0.00 Radiology data:Recent Impressions:RADIOLOGY - XR CHEST 1 V 07/18 0559 Report Impression - Status: SIGNED Entered: 07/18/2022 0755 IMPRESSION: 1. Stable postoperative chest. 2. Stable pulmonary opacities likely combination of atelectasis and airspace disease. 3. Stable pleural effusions. Stable loculated left pleural fluid and or thickening extending to the apex. Impression By: Robert Ratliff M.D. Treatment Prophylaxis Treatment ProphylaxisDrain(s)/tube(s): Drain(s)/tube(s): chest Diagnosis, Assessment PlanHospital course to date:This is a 81-year-old gentleman who presented to an outside hospital with complaints of chest pains while walking at his home on Thursday. He denies any previous history of coronary artery disease or other [place]. He was seen and evaluated at [facility]. He was found to have a urinary tract infection with urinary retention and acute kidney. He was started on dialysis via a left femoral temporary catheter. He underwent dialysis on Thursday, Thursday. Renal has been consultedDuring his work-up at outside hospital he underwent Left heart catheterization showing severe Left Main 70%. LAD: Proximal diffuse 80% stenosis and then diffuse 60% in the midsegment and on the distal segment, there is focal 70% stenosis. Diagonal branches with luminal irregularities. Left circumflex, codominant circulation with proximal 80%, mid 80 to 90% and then in the OM, there is proximal 60%, distal left circumflex has a 70% stenosis. RCA large and dominant with proximal 40% stenosis, mid 60% stenosis and then diffuse 50% stenosis all the way distally and the PLV and the PDA with luminal irregularities. CV surgery consulted for evaluation for coronary bypass graft. CAROTIDS- No carotid stenosis CT chest complete IMPRESSION: Small bilateral pleural effusions with bibasilar atelectasis. Echo:1. Left ventricle: The cavity size is at the upper limits of normal. Wall thickness is mildly increased. Systolic function is severely reduced. The estimated ejection fraction is 30-34%. Moderate hypokinesis of the entire myocardium. Doppler parameters are consistent with abnormal left ventricular relaxation (grade 1 diastolic dysfunction).2. Pericardium, extracardiac: A small pericardial effusion is identified along the left ventricular free wall, along the right ventricular free wall, and along the right atrial free wall. Assessment/Plan1) CAD Mutlivessel Will obtain echo,carotids. 2) CLAUDETTE Started dialysis on Creatine 7.3 Renal consulted. 3) BPH- Urinary retention. Waters in place Workup for CABG underway. Will get functional assessment with PT. PFT pending Carotid dopplers- No disease Echo PendingDialyiss per Renal. Baseline Cr unknown. 07/04 07/04 Doing well today, alert, up in the chair. Denies chest painEchocardiogram showed LVEF 30 to 34%, mild MR, trivial TRCT chest images reviewedEncourage I-S and mobilizationCreatinine 5.5 from 7.3, good urine output. Renal US showed bilateral severe hydronephrosis. Plan for HD today and tomorrow Will tentatively schedule patient for surgery on Thursday.Patient seen and plan reviewed with Dr Schwarz 07/05 Remains in a stable condition, denies chest pain BUN 53, creatinine 5.4. Plan for hemodialysis today and tomorrow for clearanceHe is also on Lasix 20 mg IV twice daily, urine output 1.1 L overnightWe will calculate risk of surgery with STS scoreEncourage I-S and mobilizationWill tentatively schedule patient for surgery on Thursday.Pt seen and plan reviewed with Dr Schwarz 07/06 BUN 36, creatinine 4.4. Plan for hemodialysis todayAwaiting CABG tomorrowSurgery, risks involved, STS score, benefits, complications and alternatives were explained to the patient. He acknowledged understanding and is willing to proceedN.p.o. after midnightPatient seen and plan reviewed with Dr. Schwarz 07/09/22POD 1CABG x 5 (MISTRY-LAD, SVG-Ladonna, SVG-OM1< SVG-OM3, SVG-PDA), ALAA, EVH (RGSV)Patient hemodynamically unstable, on epi at 4, and vaso .04, decreased uop overnight- 150ccStarted patient on CRRT 2k/3.5Wean epi as tolerated, Cardiac incex 2.8-3labs and chest x-ray reviewed, electrolytes stable, hgb 6.5- transfuse 2 units PRBCOn 4l nasal cannula- encourage incentive spirometer and deep breathingKeep both chest tubes and monitor outputsGlycemic control on insulin dripCardiac dietBowel regimen protocolPain managementSCDs for DVT and PPI for GI prophylaxisPT/OTMonitor patient closely in CVICUPlan of care discussed with Dr. Schwarz 07/10/22PO 2Patient alert, awake, and oriented, no distres notedlabs and CXR reviewed stableBreathing comfortably on 3l nasal cannula- wean as tolerated to melissa O2 sats > 92%Encourage I-S use and deep breathingOn CRRT- able to remove 2.9L overnight- nephrology followingCardiac index 3.1- wean off epi dripKeep chest tubes for now and monitor outputsTransition to sliding scale insulin- cardiac dietTry to get patient out of bed to chair today- ambulate with PT/OTSCDs for DVT prophylaxisKeep patient in CVICU for close monitoring 07/11/22PO 3Patient in stable condition, overnight events noted- decreased urine output 35 ml last night-started on dopamine gtt for renal perfusionCardiac index 3.5- epi currently at 2- will discontinue today, vasopressin at 0.02, added low dose midodrine 2.5 mg TID, repeat echocardiogram.Renal Following- trial LasixPatient has Left femoral temp dialysis cath, Will need tunneled dialysis IJ cathplaced if need dialysis. On 5l nasal cannula- wean off as tolerated, encourage incentive spirometer and deep breathingKeep left pleural chest tube and monitor output- > 200 cc Tolerating diet, bowel regimen protocolPT/OT- patient out of bed to chair today- encourage ambulationDVT prophylaxis with SCDsMonitor patient closely in CVICUPlan discussed with multidisciplinary teamPlan discussed with Dr Schwarz/ Dr Rodríguez 07/12/22POD 5,Patient resting comfortable. Patient with hx of urinary retention- After standing today- voided 1.4 L. Needs Urology consult for retention K 5.4- HD in progress. Dr Plaza following. CT output 20- DC today. Pacers remain in place. Patient has Left femoral temp dialysis cath, Re-evaluate on Thursday if fpc dialysis needed. Card: Remains in sinus rhythm. Respir: on 7 L NC O2 95%Dispo: Rehab consultedPatient seen and exmained by Dr Rodríguez. Plan discussed with Team 07/13/22 5Patient with no new complaints. Recieved HD yesterday.Requiring less oxygen, now on 3l nasal cannula- continue to wean offCXR reviewed left apical pneumothorax 4cm/30%, Chest tube drained 140 overnight,placed back on suction to clear pneumo, CT drianed 200cc this AM. on suction. Labs reviewed- stable, decreased WBC, hgb stable, CR 3.9Eating welll, +BMUO- 550CC, BP improved on midodrine. Continue PT/OT, ambulation and incentive spirometer useRehab folowing Monitor in ICU todayDisucssed with Dr Schwarz- DC femoral line and Central line today. DC art line. Will re-eval need for dialysis cath Thursday. Consider tunnelled cath if need.Patient seen and examined by Dr Rodríguez. Plan discussed with Care team. 6Patient in stable condition, no distress notedRemains on room air, O2 sats > 92%, encourage I-S use and deep breathingCXR shows moderate left apical pneumothorax unchangedCT remained on suction, no airleak noConsult IR for pigtail chest tube placement this morningCardiac/renal dietLabs reviewed- K 5.1- repeat labs K 4.8Nephrology followingContinue therapy with PT/OTFollow up with urology for waters catheter- Dr Harris consulted.Monitor in CVICUPlan of care discussed with Dr Schwarz and multidisciplinary team 07/15/22 7Patient alert, awake, and oriented, no distress, no complaints at this timeBreathing comfortable on room airCXR shows resolved pneumothoraxLP and pigtail chest tube- no air leak noted, minimal output from LP 40 overnightLabs reviewed, K 5.2- corrected, follow up with nephrology to discuss need for dialysisTrend labs this afternoonBowel regimen, +gasFoley catheter discontinued per urology- voiding trial this AMAmbulation and incentive spirometer use encouragedDVT prophylaxis with SCDsKeep in ICU DISP: SNF- Case management Discussed plan of care with multidisciplinary team and Dr. Schwarz 3POD 8Patient doing well, alert, awake, and orientedO2 sats 93% on room air, encourage I-SCXR stable- no pneumo notedLeft pigtail chest tube - no air leak, clamped this morning, repeat CXRPlacement of tunneled dialysis catheter (BioFlo DuraMax 28 cm) yesterdayHD treatment done yesterday evening, plan for HD treatment today per nephrologyPatient failed voiding trial, waters catheter replaced- follow up with urologyEating wellContinue PT/OT- ambulationTransfer to CV 1 intermediate care unitDischarge planning for SNF- CM following and to set up dialysis chairPatient seen with Dr. Schwarz and discussed plan of care with multidisciplinary team. 07/17/22Patient in stable condition, no complaintsLabs and CXR reviewed- stableLeft pigtail chest tube discontinued yesterday- no pneumo notedRemains on room air, no distress- I-S encouragedCardiac diet, +BMKeep waters per urology f/u outpt, continue flomaxHD per nephrology- CM to setup outpt dialysis chairAwaiting bed availability on CV 1Discharge planning- SNFPlan of care discussed with multidisciplinary team and Dr. Schwarz. 07/18 Patient in stable condition, no complaintsRemains on room air, no distress- I-S encouragedEpicardial pacing wires discontinued. Limited echo to rule out pericardial effusionKeep waters per urology f/u outpt, continue flomaxHD per nephrology- CM to setup outpt dialysis chairDischarge planning- SNFPlan of care discussed with multidisciplinary team and Dr. Schwarz. Consultants: cardiology, cardiovascular surgery, nephrology at 2058 at 1939 RPT #:[id number] OF REPORTPRProgress [id number] Available for patient [id number] [facility]ACL 2022-07-18 12:51:00 [id number] [facility] ([facility])Hospitalist Progress NoteREPORT#:[id number] REPORT STATUS: SignedDATE:07/18/22 TIME: 1251 PATIENT: SHERRI ARCE UNIT #: [id number]#: [id number] [address] AGE: 81 SEX: M ATTEND: Srinath Kaur AUTHOR: Srinath Kaur MD * ALL edits or amendments must be made on the electronic/computer document * SubjectiveChief complaint:NO COMPLAINTS, AWAITS SNF APPROVAL WHERE DIALYSIS IS AVIALABLE.HPI:81 y/o man with PMHx of HTN, Dyslipidemia that [facility] with chest pain and found to have a NSTEMI and also acute renal failure. Underwent cardiac cath yesterday and found to have severe CAD including left main disease. Transfer here for CABG evaluation. He also underwent HD Thursday and Thursday of this week. HD catheter was place at [facility]. Currently not having any chest pain. Had chest pain with SOB when he presentted to the previous hospital. Objective GeneralVS/I O:Vital Signs: Date Time Temp Pulse Resp B/P B/P Pulse O2 O2 Flow FiO2 Mean Ox Delivery Rate 07/18 1134 [...] scale Measurement Method PATIENT WEIGHT: Weight (lb): 193Weight (oz): 2Weight (kg): 87.600 Medications:Active Meds + DC'd Last 24 HrsMidodrine (PROAMATINE) 5 MG 0900,1300,1700 PRN PO Sodium Chloride (SODIUM CHLORIDE) 10 ML ASDIR IV Amiodarone HCl (CORDARONE) 200 MG BID PO Albumin Human (ALBUMINAR-25%) 12.5 GM ASDIR PRN IV (DC) Sodium Chloride (SODIUM CHLORIDE) 10 ML ASDIR PRN IV (DC) Midodrine (PROAMATINE) 10 MG 0900,1300,1700 PO (DC) Ipratropium [place] (ATROVENT) 500 MCG RTQ2H PRN PRN INH Lactulose (LACTULOSE) 20 GM DAILY PRN PRN PO Cyanocobalamin (Vitamin B-12 500 mcg tab) 500 MCG DAILY PO Ferrous Sulfate (FERROUS SULFATE) 325 MG DAILY PO Dopamine HCl/Dextrose (DOPamine 400MG/D5W 250ML) 250 ML ASDIR IV (DC) Bisacodyl (DULCOLAX) 10 MG ONCE PRN RECTAL Atorvastatin Calcium (LIPITOR) 40 MG 2100 PO Clopidogrel Bisulfate (Plavix) 75 MG DAILY PO Polyethylene Glycol (MIRALAX) 17 GM DAILY PO Calcium Chloride (CALCIUM CHLORIDE) 1 GM ASDIR PRN IV (DC) Sodium Chloride (SODIUM CHLORIDE 0.9%) 100 MLCalcium Chloride (CALCIUM CHLORIDE) 2 GM ASDIR PRN IV (DC) Sodium Chloride (SODIUM CHLORIDE 0.9%) 100 MLMagnesium Sulfate (MAGNESIUM SULFATE 4GM/SWFI 100ML) 100 ML ASDIR PRN IV (DC) Magnesium Sulfate (MAGNESIUM SULFATE 2GM/SWFI 50ML) 50 ML ASDIR PRN IV (DC) Potassium Chloride (KCL 10MEQ/SWFI 50ML) 50 ML ASDIR PRN IV (DC) Sodium Chloride (SODIUM CHLORIDE 0.9%) 2,000 ML ASDIR PRN IV (DC) Sodium Phosphate (SODIUM PHOSPHATE) 25 MMOL ASDIR PRN IV (DC) Sodium Chloride (SODIUM CHLORIDE 0.9%) 250 MLSodium Phosphate (SODIUM PHOSPHATE) 20 MMOL ASDIR PRN IV (DC) Sodium Chloride (SODIUM CHLORIDE 0.9%) 250 MLSodium Phosphate (SODIUM PHOSPHATE) 15 MMOL ASDIR PRN IV (DC) Sodium Chloride (SODIUM CHLORIDE 0.9%) 250 MLPantoprazole (PROTONIX) 40 MG DAILY@0600 PO Aspirin (ASPIRIN) 81 MG DAILY PO Vasopressin (VASOSTRICT 20 Unit/NS 100ML) 100 ML ASDIR IV (DC) Docusate Sodium (COLACE) 100 MG BID PO Sennosides (Senna Lax 8.6 MG TABLET) 17.2 MG BEDTIME PO Ipratropium [place] (ATROVENT) 500 MCG RTQ4H INH Acetaminophen (TYLENOL) 650 MG Q4H PRN PRN PO Acetaminophen (TYLENOL) 650 MG Q4H PRN PRN RECTAL Calcium Chloride (CALCIUM CHLORIDE) 1 GM ASDIR PRN IV (DC) Dextrose/Water (DEXTROSE 10% IN WATER) 125 ML ASDIR PRN IV (CKD) Dextrose/Water (DEXTROSE 10% IN WATER) 250 ML ASDIR PRN IV (CKD) Epinephrine (ADRENALIN CHLORIDE) 4 MG ASDIR IV (DC) Dextrose/Water (DEXTROSE 5% WATER) 246 MLGlucagon (GLUCAGON) 1 MG ASDIR PRN IM Magnesium Sulfate (MAGNESIUM SULFATE 4GM/SWFI 100ML) 100 ML ASDIR PRN IV Magnesium Sulfate (MAGNESIUM SULFATE 2GM/SWFI 50ML) 50 ML ASDIR PRN IV Magnesium Sulfate/Dextrose (MAGNESIUM SULFATE 1GM/D5W 100ML) 100 ML ASDIR PRN IV Nitroglycerin/Dextrose (NITROGLYCERIN 50,000MCG/D5W 250ML) 250 ML ASDIR IV (DC) Norepinephrine Bitartrate (NOREPINEPHRINE 8 MG/NS 250 ML) 250 ML TITRATE IV (DC) Ondansetron HCl (ZOFRAN) 4 MG Q6H PRN PRN IV Potassium Chloride (KCL 20MEQ/SWFI 100ML) 100 ML ASDIR PRN IV (DC) Sodium Bicarbonate (SODIUM BICARBONATE) 50 MEQ ASDIR PRN IV (DC) Albumin Human (ALBUMINAR-25%) 12.5 GM ASDIR PRN IV Heparin Sodium (Porcine) (HEPARIN SODIUM) 3,000 UNIT ASDIR PRN DIALYSIS Lidocaine HCl (LIDOCAINE HCL/PF) 0.5 ML ASDIR PRN I-DERMAL (CKD) Mannitol (Mannitol 20%) 12.5 GM ASDIR PRN IV Sodium Chloride (SODIUM CHLORIDE 0.9%) 2,000 ML ASDIR PRN IV Tamsulosin HCl (Flomax 0.4 mg) 0.4 MG BEDTIME PO Physical ExamGeneral appearance: chronically ill appearing, frail, alert, awakeNeck: no JVDCardiovascular: normal heart sounds, regular rate rhythmRespiratory: aerating well, clear to auscultation, symmetric expansion, no distressAbdomen: non-tender, normal bowel sounds, soft, no distention, no guarding, no reboundExtremities: no edemaMusculoskeletal: normal inspectionNeuro/GIFT OFFICER: alert, oriented X 3, normal speech, no motor deficits, no sensory deficitsSkin: intact, normal color, no rashPsychiatry: normal affect ResultsFindings/Data:Laboratory Tests 07/1818 0618 Chemistry Sodium (134 - [...] (Auto) (14.0 - 32.0 %) 8.5 L Starke % (Auto) (4.8 - 9.0 %) 8.8 Eos % (Auto) (0.3 - 3.7 %) 7.2 H Baso % (Auto) (0.0 - 2.0 %) 0.6 Neut # (Auto) (2.0 - 7.6 x10 3/uL) 9.05 H Lymph # (Auto) (1.0 - 3.8 x10 3/uL) 1.05 Starke # (Auto) (0.1 - 0.8 x10 3/uL) 1.09 H Eos # (Auto) (0.0 - 0.2 x10 3/uL) 0.89 H Baso # (Auto) (0.0 - 0.2 x10 3/uL) 0.08 Abs Immat Gran (auto) (0.00 - 0.03 x10 3/uL) 0.21 H Add Manual Diff NO Immature Gran % (0.0 - 2.0 %) 1.7 Nucleated RBC % (0 - 0 %) 0.0 Nucleated RBCs # (Man) (0.0 - 0.1 x10 3/uL) 0.00 Radiology data:Recent Impressions:ULTRASOUND - DUP VEIN WOJCIECH 07/17 1519 Report Impression - Status: SIGNED Entered: 07/17/2022 1545 IMPRESSION: No evidence of deep vein thrombosis. Superficial thrombus in the right greater saphenous vein. Complex hypoechoic area in the right inguinal region without internal vascular flow or peripheral hyperemia measuring 4.2 x 1.4 x 2.3 cm which may represent a hematoma.Impression By: Toro - Delmer Palma M.D.RADIOLOGY - XR CHEST 1 V 07/18 9202 Report Impression - Status: SIGNED Entered: 07/18/2022 5345 IMPRESSION: 1. Stable postoperative chest. 2. Stable pulmonary opacities likely combination of atelectasis and airspace disease. 3. Stable pleural effusions. Stable loculated left pleural fluid and or thickening extending to the apex. Impression By: Robert Ratliff M.D. Diagnosis, Assessment PlanConsultants: cardiology, cardiovascular surgery, nephrology Free Text DxA P NotesFree text DxA P notes:NSTEMI, CAD (coronary artery disease), S/P CABG X 5 - STABLE, CARD/CTS SEEN, TX TO SNF SOON, EF 30-35% patient presented with NSTEMI and found to hve severe CAD. Cardiac cath shows: Left Main - Distal 70% LAD - Proximal 80% with another 60% and 70% lessions Cir - Proximal 80%,mid 80-90%, Distal 70% and OM 60% RCA - large dominant with proximal 40%, Mid 60%. Cardiology and CV surgeon consulted echo: ef 30-34%, mod hypokinesis of entire myocardium, grade 1 diastolic dysfunction Carotid Dopplers negative PFTs PT/OT s/p CABG X5 on 07/08 Patient on ASA, plavix, BB and Statin on amiodarone Beta-tomas as tolerated for low BP, Acute systolic heart failure - STABLE, NO CHARLY/BB DUE TO LOW BP, ON MIDODRINE PRN, EF 3-35% Echocardiac with estimated LVEF of 30 to 34% with grade 1 diastolic dysfunction-s/p Lasix 20 mg twice daily 07/05 -on metoprolol 12.5 mg bid on hold now, BP low-no ACEI/ spironolactione for CLAUDETTE-Strict I's and O's, daily weights-Start GDMT prior to discharge CLAUDETTE (acute kidney injury) DUE TO POST-OBS NEPHROPATHY - ON HD PRN, RENAL/UROL SEEN, NEEDS SNF WITH DIALYSIS ACCESS, CONT WATERS, FLOMAX, ABLE BODIED TANKERMAN FROM 7.0 TO 4.3 NOW No prior Hx of renal disease. hx of BPH and treated with Fosamax w/o improvement nd continue to have difficulty urinating. On admission was found to be on acute renal filaure and had received HD twice prior to arrival here (thursday and thursday). Creatinine this am was 7.4, BUN 68* Probably due to obstructive uropathy* waters already in place* Nephrology consuled for HD On daily hemodialysis as per nephrology Anemia OF CD AND SURGICAL BLOOD LOSS - STABLE-Hemoglobin dropped to 6.5 s/p CABG 2 PRBC BT ordered 07/09 Monitor H H Leukocytosis - RXT , STABLE-Afebrile Monitor WBC count HTN (hypertension) patient on metoprolol 12.5 mg BID, will adjust as needed On labetalol/hydralazine as needed Dyslipidemia on Lipitor 40mg po daliy. BPH (benign prostatic hyperplasia) - ABOVE, ON WATERS Started on Flomax at the previous hospital, will continue with it. Waters catheter in place, continue Waters catheter as per nephrology 07/05 Goiter Hx of Goiter and surgical resection. TSH 3.33, within normal limits. Patient is not on Thyroid medication. anemia of chronic kidney disease Hemoglobin 8.3, monitor DEBILITY - OT/PT SEEN, SNF TX SOON UTI continue Rocephin for empiric treatment pending results of urine culture No growth for 48 hours DVT prophylaxis: Heparin 5000 units every 8 hoursDiet: Cardiac dietCODE STATUS: Full code Disposition: Status post CABG x5 on 07/09, hemodialysis as per nephrology. Worked with PT in his room, on 2 L oxygen via nasal cannula. PT/OT on board. Rehab consulted. Transfer to floor. Quality: Gen Med Crit Care VTE ProphylaxisVTE prophylaxis initiated: yes Current MedicationsCurrent medication review:I attest that the foregoing medication list in the medical record is true, accurate, and complete to the best of my knowledge. Advanced Care Plan 65 or OlderDiscussed with: patientDiscussion included: living will (none), power of school commissioner (none), code status (full code) at 1300 RPT #:[id number] OF REPORTPRProgress [id number]:[id number] Available for patient [id number]:50 HCACL 2022-07-18 11:33:00 [id number]:33:00 [facility] ([facility])Cardiology Progress NoteREPORT#:[id number] REPORT STATUS: SignedDATE:07/18/22 TIME: 1133 PATIENT: SHERRI ARCE UNIT #: [id number]#: [id number] [address] AGE: 81 SEX: M ATTEND: Srinath Kaur [facility] AUTHOR: Jyoti Browning PREMIUM CARD CANCELLATION CLERK * ALL edits or amendments must be made on the electronic/computer document * SubjectiveChief complaint:Doing okay. Objective GeneralVS/I O:Laboratory Tests 07/18/22 0618:[Embedded Image Not Available] 07/17/22 0320:[Embedded Image Not Available]Current Medications Sig/Earl Start time LastMedication Dose Route Stop Time Status AdminMidodrine 5 MG 0900,1300,1700 PRN 07/17 2100 AC PO 08/16 2058Sodium Chloride 10 ML ASDIR 07/17 1030 AC IV 08/16 1029Amiodarone HCl 200 MG BID 07/16 09 AC 07/18 PO 08/15 0859 0942Albumin Human 12.5 GM ASDIR PRN 07/15 191 DC IV 08/15 1907Sodium Chloride 10 ML ASDIR PRN 07/15 191 DC IV 08/14 1914Midodrine 10 MG 0900,1300,1700 07/15 1300 DC 07/17 PO 07/17 2058 1309Ipratropium [place] 500 MCG RTQ2H PRN PRN 07/11 1821 AC 07/10 INH 08/10 1820 1302Lactulose 20 GM DAILY PRN PRN 07/11 1245 AC 07/11 PO 08/10 1244 1411Cyanocobalamin 500 MCG DAILY 07/11 0900 AC 07/18 PO 08/10 0859 0941Ferrous Sulfate 325 MG DAILY 07/11 09 AC 07/18 PO 08/11 0759 0942Dopamine HCl/Dextrose 250 ML ASDIR 07/10 2100 DC 07/11 IV 08/09 2058 2025Bisacodyl 10 MG ONCE PRN 07/10 1200 AC 07/11 RECTAL 08/09 1159 0928Atorvastatin Calcium 40 MG 2100 07/09 2100 AC 07/17 PO 08/08 2058 2100Clopidogrel Bisulfate 75 MG DAILY 07/09 0900 AC 07/18 PO 08/08 0859 0941Polyethylene Glycol 17 GM DAILY 07/09 0900 AC 07/18 PO 08/08 0859 0941Calcium Chloride 1 GM ASDIR PRN 07/09 07 DCSodium Chloride 100 ML IV 08/08 0659Calcium Chloride 2 GM ASDIR PRN 07/09 07 DCSodium Chloride 100 ML IV 08/08 0659Magnesium Sulfate 100 ML ASDIR PRN 07/09 07 DC IV 08/08 0659Magnesium Sulfate 50 ML ASDIR PRN 07/09 07 DC IV 08/08 0659Potassium Chloride 50 ML ASDIR PRN 07/09 07 DC IV 08/08 0659Sodium Chloride 2,000 ML ASDIR PRN 07/09 07 DC 07/12 IV 08/08 0659 0906Sodium Phosphate 25 MMOL ASDIR PRN 07/09 07 DCSodium Chloride 250 ML IV 08/08 0659Sodium Phosphate 20 MMOL ASDIR PRN 07/09 07 DCSodium Chloride 250 ML IV 08/08 0659Sodium Phosphate 15 MMOL ASDIR PRN 07/09 07 DCSodium Chloride 250 ML IV 08/08 0659Pantoprazole 40 MG DAILY@0600 07/09 0600 AC 07/18 PO 08/08 0559 0538Aspirin 81 MG DAILY 07/09 0020 AC 07/18 PO 08/08 0019 0941Vasopressin 100 ML ASDIR 07/09 0015 DC 07/09 IV 08/08 0014 2139Docusate Sodium 100 MG BID 07/08 2100 AC 07/18 PO 08/07 2058 0941Sennosides 17.2 MG BEDTIME 07/08 2100 AC 07/17 PO 08/07 2058 2100Ipratropium [place] 500 MCG RTQ4H 07/08 1900 AC 07/18 INH 08/07 1859 1112Acetaminophen 650 MG Q4H PRN PRN 07/08 1830 AC 07/17 PO 08/07 1829 0620Acetaminophen 650 MG Q4H PRN PRN 07/08 1830 AC RECTAL 08/07 1829Calcium Chloride 1 GM ASDIR PRN 07/08 1830 DC 07/08 IV 08/07 1829 2027Dextrose/Water 125 ML ASDIR PRN 07/08 1830 CKD IV 08/07 1829Dextrose/Water 250 ML ASDIR PRN 07/08 1830 CKD IV 08/07 1829Epinephrine 4 MG ASDIR 07/08 1830 DC 07/10Dextrose/Water 246 ML IV 08/07 1829 1201Glucagon 1 MG ASDIR PRN 07/08 1830 AC IM 08/07 1829Magnesium Sulfate 100 ML ASDIR PRN 07/08 1830 AC IV 08/07 1829Magnesium Sulfate 50 ML ASDIR PRN 07/08 1830 AC IV 08/07 1829Magnesium Sulfate/ 100 ML ASDIR PRN 07/08 1830 AC 07/16Dextrose IV 08/07 1829 0650Nitroglycerin/ 250 ML ASDIR 07/08 1830 DCDextrose IV 08/07 1829Norepinephrine 250 ML TITRATE 07/08 1830 DCBitartrate IV 08/07 1829Ondansetron HCl 4 MG Q6H PRN PRN 07/08 1830 AC IV 08/07 1829Potassium Chloride 100 ML ASDIR PRN 07/08 1830 DC IV 08/07 1829Sodium Bicarbonate 50 MEQ ASDIR PRN 07/08 1830 DC 07/09 IV 08/07 1829 0021Albumin Human 12.5 GM ASDIR PRN 07/03 1200 AC 07/10 IV 08/03 1155 1327Heparin Sodium 3,000 UNIT ASDIR PRN 07/03 1200 AC 07/15 (Porcine) DIALYSIS 08/02 1159 1844Lidocaine HCl 0.5 ML ASDIR PRN 07/03 1200 CKD I-DERMAL 08/03 1155Mannitol 12.5 GM ASDIR PRN 07/03 1200 AC IV 08/03 1155Sodium Chloride 2,000 ML ASDIR PRN 07/03 1200 AC 07/15 IV 08/03 1155 1847Tamsulosin HCl 0.4 MG BEDTIME 07/02 2144 AC 07/17 PO 08/01 214 2100 24 hour I O ending at 0700: 07/18 0700 07/17 1900 Intake Total 150 Output Total 2300 Balance -2300 150 Intake, Oral 150 Number 3 Bowel Movements Output, Urine 2300 Patient 87.6 kg Weight Weight Bed scale Measurement Method Vital Signs: Date Time Temp Pulse Resp B/P B/P Pulse O2 O2 Flow FiO2 Mean Ox Delivery Rate 07/18 1134 [...] 131/67 93 91 PATIENT WEIGHT: Weight (lb): 193Weight (oz): 2Weight (kg): 87.600 Status post:07/08/22 CABG x 5 (MISTRY-LAD, SVG-Ladonna, SVG-OM1< SVG-OM3, SVG-PDA) ALAA Physical ExamGeneral appearance: alert, awake, oriented, no acute distress, pleasantHead/Eyes: atraumaticENT: moist mucosal membranesNeck: no JVDCardiovascular: CV assessment: pedal edema, regular rate and rhythm, no murmurRespiratory: decreased breath sounds, no distressAbdomen: soft, non-tender, normal bowel sounds, no distention, no guardingUpper extremity: UE assessment: normal temperature, no edemaLower extremity: LE assessment: edema (2 to 3+ pitting edema), normal temperature, no edemaMusculoskeletal: normal inspectionNeuro/GIFT OFFICER: alert, oriented X 3, normal speechSkin: dryPsychiatry: normal affect ResultsRadiology data:Recent Impressions:ULTRASOUND - DUP VEIN WOJCIECH 07/17 1519 Report Impression - Status: SIGNED Entered: 07/17/2022 4510 IMPRESSION: No evidence of deep vein thrombosis. Superficial thrombus in the right greater saphenous vein. Complex hypoechoic area in the right inguinal region without internal vascular flow or peripheral hyperemia measuring 4.2 x 1.4 x 2.3 cm which may represent a hematoma.Impression By: [email or web address] - Delmer Palma M.D.RADIOLOGY - XR CHEST 1 V 07/18 0559 Report Impression - Status: SIGNED Entered: 07/18/2022 0755 IMPRESSION: 1. Stable postoperative chest. 2. Stable pulmonary opacities likely combination of atelectasis and airspace disease. 3. Stable pleural effusions. Stable loculated left pleural fluid and or thickening extending to the apex. Impression By: Robert Ratliff M.D. Diagnosis, Assessment PlanProblem List/A P: 1. HTN (hypertension) 2. CLAUDETTE (acute kidney injury) 3. CAD (coronary artery disease) 4. Dyslipidemia 5. BPH (benign prostatic hyperplasia) Consultants: cardiology, cardiovascular surgery, nephrology Free Text DxA P NotesFree Text DxA P Notes:Mr. Arce is a pleasant 81 y/o M w/ PMHx: HTN, HLD presented to [facility] on 06/28/22 for chest pain and sob. He was diagnosed NSTEMI. LHC showed multivessel CAD. Transferred to [facility] for CABG. 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 - CLAUDETTE - per nephrology likely from obstructive uropathy Renal ultrasound showed severe thickening of the bladder, cholelitiasis. urology consulted for bladded outlet obstruction and hydronephrosis, started on Flomax creatinine trending done after being started on HD HD per nephro - HTN. bp stable, midodrine as needed - HLD. On statins. - Anemia. monitor VS stable SNF pending at 1152 at 0753 RPT #:[id number] OF REPORTPRProgress [id number]:[id number] Available for patient [id number]:35 HCACL 2022-07-18 07:14:00 [id number]:14:00 [facility] ([facility])Rehab Progress NoteREPORT#:[id number] REPORT STATUS: SignedDATE:07/18/22 TIME: 713 PATIENT: SHERRI ARCE UNIT #: [id number]#: [id number] [address] [birth year] AGE: 81 SEX: M ATTEND: Srinath Kaur [facility] AUTHOR: Magdaleno Washburn * ALL edits or amendments must be made on the electronic/computer document * SubjectiveChief complaint:Rehab follow-upDoing well. Sitting up in chairLooks good todayDenies pain or sobPleasantDenies NAIK/N/V/D/CP14 systems reviewed and neg. except that above. Objective GeneralVS:Vital Signs: Date Time Temp Pulse Resp B/P B/P Pulse O2 O2 Flow FiO2 Mean Ox Delivery Rate 07/18 0556 89 31 92 07/18 0400 88 28 92 07/18 0400 98.4 88 16 117/64 81.6 89 Room air 07/18 0200 87 31 90 07/18 0000 86 30 90 07/17 2345 98.8 88 16 123/67 85.7 88 Room air 07/17 2200 84 28 97 07/17 1946 92 Room air 07/17 1941 98.1 85 16 126/62 83.3 91 07/17 1600 23 07/17 1541 83 141/72 94 02 1508 82 76 92 02/ 1500 79 [...] 77 93 / 0930 92 44 92 / 0916 90 32 107/58 79 92 / 0900 98.1 / 0900 87 26 92 / 0830 83 27 92 02/ 0800 85 28 117/56 80 93 02/ 0735 92 Room air 07/17 0730 81 28 91 PATIENT WEIGHT: Weight (lb): 193Weight (oz): 2Weight (kg): 87.600 Medications:Active Meds + DC'd Last 24 HrsMidodrine (PROAMATINE) 5 MG 0900,1300,1700 PRN PO Sodium Chloride (SODIUM CHLORIDE) 10 ML ASDIR IV Amiodarone HCl (CORDARONE) 200 MG BID PO Albumin Human (ALBUMINAR-25%) 12.5 GM ASDIR PRN IV (DC) Sodium Chloride (SODIUM CHLORIDE) 10 ML ASDIR PRN IV (DC) Midodrine (PROAMATINE) 10 MG 0900,1300,1700 PO (DC) Ipratropium [place] (ATROVENT) 500 MCG RTQ2H PRN PRN INH Lactulose (LACTULOSE) 20 GM DAILY PRN PRN PO Cyanocobalamin (Vitamin B-12 500 mcg tab) 500 MCG DAILY PO Ferrous Sulfate (FERROUS SULFATE) 325 MG DAILY PO Dopamine HCl/Dextrose (DOPamine 400MG/D5W 250ML) 250 ML ASDIR IV (DC) Bisacodyl (DULCOLAX) 10 MG ONCE PRN RECTAL Atorvastatin Calcium (LIPITOR) 40 MG 2100 PO Clopidogrel Bisulfate (Plavix) 75 MG DAILY PO Polyethylene Glycol (MIRALAX) 17 GM DAILY PO Calcium Chloride (CALCIUM CHLORIDE) 1 GM ASDIR PRN IV (DC) Sodium Chloride (SODIUM CHLORIDE 0.9%) 100 MLCalcium Chloride (CALCIUM CHLORIDE) 2 GM ASDIR PRN IV (DC) Sodium Chloride (SODIUM CHLORIDE 0.9%) 100 MLMagnesium Sulfate (MAGNESIUM SULFATE 4GM/SWFI 100ML) 100 ML ASDIR PRN IV (DC) Magnesium Sulfate (MAGNESIUM SULFATE 2GM/SWFI 50ML) 50 ML ASDIR PRN IV (DC) Potassium Chloride (KCL 10MEQ/SWFI 50ML) 50 ML ASDIR PRN IV (DC) Sodium Chloride (SODIUM CHLORIDE 0.9%) 2,000 ML ASDIR PRN IV (DC) Sodium Phosphate (SODIUM PHOSPHATE) 25 MMOL ASDIR PRN IV (DC) Sodium Chloride (SODIUM CHLORIDE 0.9%) 250 MLSodium Phosphate (SODIUM PHOSPHATE) 20 MMOL ASDIR PRN IV (DC) Sodium Chloride (SODIUM CHLORIDE 0.9%) 250 MLSodium Phosphate (SODIUM PHOSPHATE) 15 MMOL ASDIR PRN IV (DC) Sodium Chloride (SODIUM CHLORIDE 0.9%) 250 MLPantoprazole (PROTONIX) 40 MG DAILY@0600 PO Aspirin (ASPIRIN) 81 MG DAILY PO Vasopressin (VASOSTRICT 20 Unit/NS 100ML) 100 ML ASDIR IV (DC) Docusate Sodium (COLACE) 100 MG BID PO Sennosides (Senna Lax 8.6 MG TABLET) 17.2 MG BEDTIME PO Ipratropium [place] (ATROVENT) 500 MCG RTQ4H INH Acetaminophen (TYLENOL) 650 MG Q4H PRN PRN PO Acetaminophen (TYLENOL) 650 MG Q4H PRN PRN RECTAL Calcium Chloride (CALCIUM CHLORIDE) 1 GM ASDIR PRN IV (DC) Dextrose/Water (DEXTROSE 10% IN WATER) 125 ML ASDIR PRN IV (CKD) Dextrose/Water (DEXTROSE 10% IN WATER) 250 ML ASDIR PRN IV (CKD) Epinephrine (ADRENALIN CHLORIDE) 4 MG ASDIR IV (DC) Dextrose/Water (DEXTROSE 5% WATER) 246 MLGlucagon (GLUCAGON) 1 MG ASDIR PRN IM Magnesium Sulfate (MAGNESIUM SULFATE 4GM/SWFI 100ML) 100 ML ASDIR PRN IV Magnesium Sulfate (MAGNESIUM SULFATE 2GM/SWFI 50ML) 50 ML ASDIR PRN IV Magnesium Sulfate/Dextrose (MAGNESIUM SULFATE 1GM/D5W 100ML) 100 ML ASDIR PRN IV Nitroglycerin/Dextrose (NITROGLYCERIN 50,000MCG/D5W 250ML) 250 ML ASDIR IV (DC) Norepinephrine Bitartrate (NOREPINEPHRINE 8 MG/NS 250 ML) 250 ML TITRATE IV (DC) Ondansetron HCl (ZOFRAN) 4 MG Q6H PRN PRN IV Potassium Chloride (KCL 20MEQ/SWFI 100ML) 100 ML ASDIR PRN IV (DC) Sodium Bicarbonate (SODIUM BICARBONATE) 50 MEQ ASDIR PRN IV (DC) Albumin Human (ALBUMINAR-25%) 12.5 GM ASDIR PRN IV Heparin Sodium (Porcine) (HEPARIN SODIUM) 3,000 UNIT ASDIR PRN DIALYSIS Lidocaine HCl (LIDOCAINE HCL/PF) 0.5 ML ASDIR PRN I-DERMAL (CKD) Mannitol (Mannitol 20%) 12.5 GM ASDIR PRN IV Sodium Chloride (SODIUM CHLORIDE 0.9%) 2,000 ML ASDIR PRN IV Tamsulosin HCl (Flomax 0.4 mg) 0.4 MG BEDTIME PO Functional ProgressFunctional progress: Weightbearing: STERNAL Ambulation Distance: 250 FT 200 FT Progression: Forward Backward Lateral, Right Lateral, Left Assistance Level: Supervision or Set-up Gait Deviations: SLOW Base of Support - Narrow [facility] Mobility: Yes Advanced Progression: No Effects of Treatment: Cardio tolerance improved Function Improved Gait quality improved Post TX Precautions: In Bed, rails Up Call Light in Reach Nursing Notified Review Plan of Care: Yes PT charges: Gait Training [id number] Gait Cmt: PATIENT MOTIVATED AND PARTICIPATED WELL WITH GAIT TRNG. NO C/O PAIN OR DISCOMFORT. BP 117/59 POS GAIT. Physical ExamGeneral appearance: alert, awake, orientedPsych: alert, oriented x 3HEENT: anicteric, sclera clearNeck: supple, no JVDCardiovascular: regular rate rhythm, S1/C3Oonsjskblui: aerating well, clear bilaterallyAbdomen: bowel sounds present, non-distended, softSkin: intact, no rashMusculoskeletal - general: Musculoskeletal - general: joints normal, normal muscle mass, normal toneNeuro/GIFT OFFICER: alert, oriented X 3, CNII-XII intact ResultsFindings/Data:Laboratory Tests 07/17 07/17 07/16 07/16 07/15 0320 [...] - 32.0 %) 7.2 L 7.1 L Starke % (Auto) (4.8 - 9.0 %) 11.0 H 12.2 H Eos % (Auto) (0.3 - 3.7 %) 6.8 H 6.9 H Baso % (Auto) (0.0 - 2.0 %) 0.6 0.7 Neut # (Auto) (2.0 - 7.6 x10 3/uL) 7.90 H 7.58 Lymph # (Auto) (1.0 - 3.8 x10 3/uL) 0.80 L 0.77 L Starke # (Auto) (0.1 - 0.8 x10 3/uL) 1.21 H 1.32 H Eos # (Auto) (0.0 - 0.2 x10 3/uL) 0.75 H 0.75 H Baso # (Auto) (0.0 - 0.2 x10 3/uL) 0.07 0.08 Abs Immat Gran (auto) (0.00 - 0.03 x10 3/uL) 0.31 H 0.31 H Add Manual Diff NO NO Immature Gran % (0.0 - 2.0 %) 2.8 H 2.9 H Nucleated RBC % (0 - 0 %) 0.0 0.0 Nucleated RBCs # (Man) (0.0 - 0.1 x10 3/uL) 0.00 0.00 Recent Impressions:RADIOLOGY - XR CHEST 1 V 07/15 1700 Report Impression - Status: SIGNED Entered: 07/15/2022 1841 IMPRESSION: Placement of right internal jugular central line with tip in the SVC. Impression By: Kourtney Boo M.D.RADIOLOGY - XR CHEST 1 V 07/16 0500 Report Impression - Status: SIGNED Entered: 07/16/2022 0710 IMPRESSION: Removal of the left basilar chest tube. Otherwise, stable exam. Impression By: Aguila Sesay M.D.RADIOLOGY - XR CHEST 1 V 07/16 1055 Report Impression - Status: SIGNED Entered: 07/16/2022 1158 IMPRESSION: 1. Small left and stable small right layering pleural effusion. 2. Left chest tube present. No pneumothorax. 3. Stable bibasilar airspace opacities Impression By: [email or web address] - Som Enriquez M.D.RADIOLOGY - XR CHEST 1 V 07/17 0554 Report Impression - Status: SIGNED Entered: 07/17/2022 0757 IMPRESSION: 1. Stable postoperative cardiomediastinal silhouette. 2. Stable pulmonary opacities. 3. Stable pleural effusions. Pleural fluid/thickening extending over the left apex. No pneumothorax following thoracostomy tube removal. Impression By: Robert Ratliff M.D.ULTRASOUND - DUP VEIN WOJCIECH 07/17 1519 Report Impression - Status: SIGNED Entered: 07/17/2022 1545 IMPRESSION: No evidence of deep vein thrombosis. Superficial thrombus in the right greater saphenous vein. Complex hypoechoic area in the right inguinal region without internal vascular flow or peripheral hyperemia measuring 4.2 x 1.4 x 2.3 cm which may represent a hematoma.Impression By: [email or web address] - Delmer Palma M.D. Diagnosis, Assessment PlanFree Text A P:Non-STEMIMultivessel CADS/p CABG g7Mukrgscj deconditioningImpaired mobility and gaitPostoperative anemiaDyslipidemiaHypertensionAKIAcute systolic heart failureHemodynamic issues postopLeukocytosis trending down Plan:Continue PT/OTOut of bed to chairWork on strength, bed mobility, transfers, gaitSternal precautionIncrease enduranceFall precautionsMonitor p.o. intake and nutritionStrict decubitus precautionsMonitor anemia. 2/7Persistent left pneumothorax. IR guided pigtail place. CXR shows expansion of the lung Urology consulted -Pt on FlomaxNephrology managing renal issues and elevated K+Advance therapies as toleratedPt lives alone and has 5 to 6 stairs to enter houseSNF order has been placed Total time was 33 minutes > 50% with patient performing physical examination, discussing plan of care, goals, therapies, progress, medications, labs, SNF. All questions answeredRehab attestation:. at 2052 RPT #:[id number] OF REPORTPRProgress [id number]:14:[id number] Available for patient [id number]:11 HCACL 2022-07-17 13:57:00 [id number]:57:00 [facility] ([facility])Hospitalist Progress NoteREPORT#:[id number] REPORT STATUS: SignedDATE:07/17/22 TIME: 1357 PATIENT: SHERRI ARCE UNIT #: [id number]#: [id number] [address] AGE: 81 SEX: M ATTEND: Sarbjit Mcarthur AUTHOR: Sarbjit Mcarthur MD * ALL edits or amendments must be made on the electronic/computer document * SubjectiveChief complaint:Status post CABG x5 on 07/09, Doing well today. Ambulated around the unit.HPI:81 y/o man with PMHx of HTN, Dyslipidemia that [facility] with chest pain and found to have a NSTEMI and also acute renal failure. Underwent cardiac cath yesterday and found to have severe CAD including left main disease. Transfer here for CABG evaluation. He also underwent HD Thursday and Thursday of this week. HD catheter was place at [facility]. Currently not having any chest pain. Had chest pain with SOB when he presentted to the previous hospital. Objective GeneralVS/I O:Vital Signs: Date Time Temp Pulse Resp B/P B/P Pulse O2 O2 Flow FiO2 Mean Ox Delivery Rate 07/17 0900 98.1 07/17 0735 92 Room air 07/16 1999 97.8 07/16 1953 95 Room air 07/16 1902 97.7 92 22 124/65 07/16 1700 79 26 121/63 86 95 07/16 1600 97.9 78 26 112/59 76 93 Room air 07/16 1600 78 26 112/59 80 93 07/16 1535 97 Room air 21 07/16 1530 79 25 109/60 78 93 07/16 1515 78 27 104/56 77 92 07/16 1500 97.5 75 24 110/55 07/16 1500 75 22 110/55 76 94 07/16 1400 82 28 104/58 78 92 24 hour I O ending at 0700: 07/17 0700 07/16 1900 Intake Total 750 1060.00 Output Total 1075 950 Balance -325 110.00 Intake, 0 Hemodialysis Intake, IV 100.00 Intake, Oral 750 960 Number 1 Bowel Movements Output, Urine 1075 950 Patient 88.8 kg Weight Weight Standing scale Measurement Method PATIENT WEIGHT: Weight (lb): 195Weight (oz): 12.33Weight (kg): 88.800 Physical ExamGeneral appearance: alert, awake, orientedHead/Eyes: atraumatic, EOMI, normal conjunctiva/sclera, normocephalic, PERRLAENT: moist mucosal membranesNeck: full range of motion, no bruit/NL carotids, no JVDCardiovascular: normal heart sounds, regular rate rhythmRespiratory: aerating well, clear to auscultation, symmetric expansion, no distressAbdomen: non-tender, normal bowel sounds, soft, no distention, no guarding, no reboundExtremities: moves all, no cyanosis, no edemaMusculoskeletal: normal inspectionNeuro/GIFT OFFICER: alert, oriented X 3, normal speech, no motor deficits, no sensory deficitsSkin: intact, normal color, no rashPsychiatry: normal affect ResultsFindings/Data:Laboratory Tests 07/17 0320 Chemistry Sodium (134 - [...] - 2.40 mg/dL) 2.00 Laboratory Tests 07/17 319 Hematology WBC (4.5 - 11.0 x10 [...] (Auto) (14.0 - 32.0 %) 7.2 L Starke % (Auto) (4.8 - 9.0 %) 11.0 H Eos % (Auto) (0.3 - 3.7 %) 6.8 H Baso % (Auto) (0.0 - 2.0 %) 0.6 Neut # (Auto) (2.0 - 7.6 x10 3/uL) 7.90 H Lymph # (Auto) (1.0 - 3.8 x10 3/uL) 0.80 L Starke # (Auto) (0.1 - 0.8 x10 3/uL) 1.21 H Eos # (Auto) (0.0 - 0.2 x10 3/uL) 0.75 H Baso # (Auto) (0.0 - 0.2 x10 3/uL) 0.07 Abs Immat Gran (auto) (0.00 - 0.03 x10 3/uL) 0.31 H Add Manual Diff NO Immature Gran % (0.0 - 2.0 %) 2.8 H Nucleated RBC % (0 - 0 %) 0.0 Nucleated RBCs # (Man) (0.0 - 0.1 x10 3/uL) 0.00 Radiology data:Recent Impressions:RADIOLOGY - XR CHEST 1 V 07/17 0885 Report Impression - Status: SIGNED Entered: 07/17/2022 2933 IMPRESSION: 1. Stable postoperative cardiomediastinal silhouette. 2. Stable pulmonary opacities. 3. Stable pleural effusions. Pleural fluid/thickening extending over the left apex. No pneumothorax following thoracostomy tube removal. Impression By: Robert Ratliff M.D. Treatment Prophylaxis Treatment ProphylaxisDrain(s)/tube(s): Drain(s)/tube(s): chest Diagnosis, Assessment PlanConsultants: cardiology, cardiovascular surgery, nephrology Free Text DxA P NotesFree text DxA P notes:Assessment and plans:CAD (coronary artery disease) patient presented with NSTEMI and found to hve severe CAD. Cardiac cath shows: Left Main - Distal 70% LAD - Proximal 80% with another 60% and 70% lessions Cir - Proximal 80%,mid 80-90%, Distal 70% and OM 60% RCA - large dominant with proximal 40%, Mid 60%. Cardiology and CV surgeon consulted echo: ef 30-34%, mod hypokinesis of entire myocardium, grade 1 diastolic dysfunction Carotid Dopplers negative PFTs PT/OT s/p CABG X5 on 07/08 Patient on ASA, plavix, BB and Statin on amiodarone Beta-tomas as tolerated for low BP, Acute systolic heart failure Echocardiac with estimated LVEF of 30 to 34% with grade 1 diastolic dysfunction-s/p Lasix 20 mg twice daily 07/05 -on metoprolol 12.5 mg bid on hold now, BP low-no ACEI/ spironolactione for CLAUDETTE-Strict I's and O's, daily weights-Start GDMT prior to discharge CLAUDETTE (acute kidney injury) No prior Hx of renal disease. hx of BPH and treated with Fosamax w/o improvement nd continue to have difficulty urinating. On admission was found to be on acute renal filaure and had received HD twice prior to arrival here (thursday and thursday). Creatinine this am was 7.4, BUN 68 * Probably due to obstructive uropathy* waters already in place* Nephrology consuled for HD On daily hemodialysis as per nephrology Anemia:-Hemoglobin dropped to 6.5 s/p CABG 2 PRBC BT ordered 07/09 Monitor H H Leukocytosis:-Afebrile Monitor WBC count HTN (hypertension) patient on metoprolol 12.5 mg BID, will adjust as needed On labetalol/hydralazine as needed Dyslipidemia on Lipitor 40mg po daliy. BPH (benign prostatic hyperplasia) Started on Flomax at the previous hospital, will continue with it. Waters catheter in place, continue Waters catheter as per nephrology 07/05 Goiter Hx of Goiter and surgical resection. TSH 3.33, within normal limits. Patient is not on Thyroid medication. anemia of chronic kidney disease Hemoglobin 8.3, monitor Hypokalemia resolved UTI continue Rocephin for empiric treatment pending results of urine culture No growth for 48 hours DVT prophylaxis: Heparin 5000 units every 8 hoursDiet: Cardiac dietCODE STATUS: Full code Disposition: Status post CABG x5 on 07/09, hemodialysis as per nephrology. Worked with PT in his room, on 2 L oxygen via nasal cannula. PT/OT on board. Rehab consulted. Transfer to floor. Quality: Gen Med Crit Care VTE ProphylaxisVTE prophylaxis initiated: yes Current MedicationsCurrent medication review:I attest that the foregoing medication list in the medical record is true, accurate, and complete to the best of my knowledge. Advanced Care Plan 65 or OlderDiscussed with: patientDiscussion included: living will (none), power of school commissioner (none), code status (full code) at 1359 RPT #:[id number] OF REPORTPRProgress [id number]:[id number] Available for patient [id number]:44 [facility] 2022-07-17 13:09:00 [id number]:09:00 [facility] ([facility])Urology Progress NoteREPORT#:[id number] REPORT STATUS: SignedDATE:07/17/22 TIME: 1309 PATIENT: SHERRI ARCE UNIT #: [id number]#: [id number] [address] AGE: 81 SEX: M ATTEND: Sarbjit Mcarthur AUTHOR: Jonathan Harris MD * ALL edits or amendments must be made on the electronic/computer document * SubjectivePatient reports: unable to void Objective GeneralVS/I O:Last Documented: Result Date Time Temp 36.7 07/17 899 Pulse Ox 92 07/17 734 O2 Delivery Room air 07/17 734 B/P 124/65 07/16 1902 Pulse 92 07/16 [...] scale Measurement Method PATIENT WEIGHT: Weight (lb): 195Weight (oz): 12.33Weight (kg): 88.800 Physical ExamGeneral appearance: alert, awake, orientedAbdomen: soft, non-tenderGenitourinary: Genitourinary: catheter in situ ResultsFindings/Data:Laboratory Tests: 07/17 07/17 0320 0320 Chemistry Sodium [...] (Auto) (14.0 - 32.0 %) 7.2 L Starke % (Auto) (4.8 - 9.0 %) 11.0 H Eos % (Auto) (0.3 - 3.7 %) 6.8 H Baso % (Auto) (0.0 - 2.0 %) 0.6 Neut # (Auto) (2.0 - 7.6 x10 3/uL) 7.90 H Lymph # (Auto) (1.0 - 3.8 x10 3/uL) 0.80 L Starke # (Auto) (0.1 - 0.8 x10 3/uL) 1.21 H Eos # (Auto) (0.0 - 0.2 x10 3/uL) 0.75 H Baso # (Auto) (0.0 - 0.2 x10 3/uL) 0.07 Abs Immat Gran (auto) (0.00 - 0.03 x10 3/uL) 0.31 H Add Manual Diff NO Immature Gran % (0.0 - 2.0 %) 2.8 H Nucleated RBC % (0 - 0 %) 0.0 Nucleated RBCs # (Man) (0.0 - 0.1 x10 3/uL) 0.00 Recent Impressions:RADIOLOGY - XR CHEST 1 V 07/17 0554 Report Impression - Status: SIGNED Entered: 07/17/2022 1832 IMPRESSION: 1. Stable postoperative cardiomediastinal silhouette. 2. Stable pulmonary opacities. 3. Stable pleural effusions. Pleural fluid/thickening extending over the left apex. No pneumothorax following thoracostomy tube removal. Impression By: Robert Ratliff M.D. Diagnosis, Assessment PlanFree Text A P:BPH with retention post-procedure, failed VT- Home with waters catheter, f/u in clinic, continue flomax at 1310 RPT #:[id number] OF REPORTPRProgress [id number]:[id number] Available for patient [id number]:05 [facility] 2022-07-17 12:55:00 [id number]:55:00 [facility] ([facility])Nephrology Progress NoteREPORT#:[id number] REPORT STATUS: SignedDATE:07/17/22 TIME: 1255 PATIENT: SHERRI ARCE UNIT #: [id number]#: [id number] [address] AGE: 81 SEX: M ATTEND: Sarbjit Mcarthur MDADM AUTHOR: Evelina Plaza MD * ALL edits or amendments must be made on the electronic/computer document * SubjectiveChief complaint:Feeling okay and has no complaints at this time. Objective GeneralVS/I O:Vital Signs: Date Time Temp Pulse Resp B/P B/P Pulse O2 O2 Flow FiO2 Mean Ox Delivery Rate 07/17 1600 23 07/17 1541 83 141/72 94 07/17 1508 82 76 92 / 1500 79 27 129/61 88 92 07/17 1430 79 28 93 / 1400 80 25 128/66 91 92 07/17 1330 77 26 93 / 1300 79 29 122/61 85 94 / 1230 81 30 93 / 1200 87 28 131/67 93 91 / 1130 78 24 93 / 1101 84 32 123/66 89 95 02/ 1100 83 31 95 / 1030 82 28 93 / 1019 93 30 133/61 88 93 02/ 1000 85 27 106/55 77 93 07/17 0930 92 44 92 07/17 0916 90 32 107/58 79 92 07/17 0900 98.1 07/17 0900 87 26 92 / 0830 83 27 92 / 0800 85 28 117/56 80 93 07/17 734 92 Room air 07/17 729 81 28 91 07/17 699 86 28 91 07/16 1999 97.8 07/16 1952 95 Room air 07/16 1901 97.7 92 22 124/65 24 hour I O ending at 0700: 07/17 0707/16 190 Intake Total 750 1060.00 Output Total 1075 950 Balance -325 110.00 Intake, 0 Hemodialysis Intake, IV 100.00 Intake, Oral 750 960 Number 1 Bowel Movements Output, Urine 1075 950 Patient 88.8 kg Weight Weight Standing scale Measurement Method PATIENT WEIGHT: Weight (lb): 195Weight (oz): 12.33Weight (kg): 88.800 MedicationsActive Meds + DC'd Last 24 HrsSodium Chloride (SODIUM CHLORIDE) 10 ML ASDIR IV Potassium Chloride (POTASSIUM CHLORIDE 10 MEQ TAB.ER) 10 MEQ ONCE ONE PO (DC) Amiodarone HCl (CORDARONE) 200 MG BID PO Cefazolin Sodium (KEFZOL OR ANCEF) 2 GM PREOP ONCALL IV (DC) Albumin Human (ALBUMINAR-25%) 12.5 GM ASDIR PRN IV Sodium Chloride (SODIUM CHLORIDE) 10 ML ASDIR PRN IV Midodrine (PROAMATINE) 10 MG 0900,1300,1700 PO Sodium Chloride (SODIUM CHLORIDE) 20 ML ASDIR IV (DC) Ipratropium [place] (ATROVENT) 500 MCG RTQ2H PRN PRN INH Lactulose (LACTULOSE) 20 GM DAILY PRN PRN PO Cyanocobalamin (Vitamin B-12 500 mcg tab) 500 MCG DAILY PO Ferrous Sulfate (FERROUS SULFATE) 325 MG DAILY PO Dopamine HCl/Dextrose (DOPamine 400MG/D5W 250ML) 250 ML ASDIR IV Bisacodyl (DULCOLAX) 10 MG ONCE PRN RECTAL Atorvastatin Calcium (LIPITOR) 40 MG 2100 PO Clopidogrel Bisulfate (Plavix) 75 MG DAILY PO Polyethylene Glycol (MIRALAX) 17 GM DAILY PO Calcium Chloride (CALCIUM CHLORIDE) 1 GM ASDIR PRN IV Sodium Chloride (SODIUM CHLORIDE 0.9%) 100 MLCalcium Chloride (CALCIUM CHLORIDE) 2 GM ASDIR PRN IV Sodium Chloride (SODIUM CHLORIDE 0.9%) 100 MLMagnesium Sulfate (MAGNESIUM SULFATE 4GM/SWFI 100ML) 100 ML ASDIR PRN IV Magnesium Sulfate (MAGNESIUM SULFATE 2GM/SWFI 50ML) 50 ML ASDIR PRN IV Potassium Chloride (KCL 10MEQ/SWFI 50ML) 50 ML ASDIR PRN IV Sodium Chloride (SODIUM CHLORIDE 0.9%) 2,000 ML ASDIR PRN IV Sodium Phosphate (SODIUM PHOSPHATE) 25 MMOL ASDIR PRN IV Sodium Chloride (SODIUM CHLORIDE 0.9%) 250 MLSodium Phosphate (SODIUM PHOSPHATE) 20 MMOL ASDIR PRN IV Sodium Chloride (SODIUM CHLORIDE 0.9%) 250 MLSodium Phosphate (SODIUM PHOSPHATE) 15 MMOL ASDIR PRN IV Sodium Chloride (SODIUM CHLORIDE 0.9%) 250 MLPantoprazole (PROTONIX) 40 MG DAILY@0600 PO Aspirin (ASPIRIN) 81 MG DAILY PO Vasopressin (VASOSTRICT 20 Unit/NS 100ML) 100 ML ASDIR IV (CKD) Docusate Sodium (COLACE) 100 MG BID PO Sennosides (Senna Lax 8.6 MG TABLET) 17.2 MG BEDTIME PO Ipratropium [place] (ATROVENT) 500 MCG RTQ4H INH Acetaminophen (TYLENOL) 650 MG Q4H PRN PRN PO Acetaminophen (TYLENOL) 650 MG Q4H PRN PRN RECTAL Calcium Chloride (CALCIUM CHLORIDE) 1 GM ASDIR PRN IV Dextrose/Water (DEXTROSE 10% IN WATER) 125 ML ASDIR PRN IV (CKD) Dextrose/Water (DEXTROSE 10% IN WATER) 250 ML ASDIR PRN IV (CKD) Epinephrine (ADRENALIN CHLORIDE) 4 MG ASDIR IV Dextrose/Water (DEXTROSE 5% WATER) 246 MLGlucagon (GLUCAGON) 1 MG ASDIR PRN IM Magnesium Sulfate (MAGNESIUM SULFATE 4GM/SWFI 100ML) 100 ML ASDIR PRN IV Magnesium Sulfate (MAGNESIUM SULFATE 2GM/SWFI 50ML) 50 ML ASDIR PRN IV Magnesium Sulfate/Dextrose (MAGNESIUM SULFATE 1GM/D5W 100ML) 100 ML ASDIR PRN IV Nitroglycerin/Dextrose (NITROGLYCERIN 50,000MCG/D5W 250ML) 250 ML ASDIR IV Norepinephrine Bitartrate (NOREPINEPHRINE 8 MG/NS 250 ML) 250 ML TITRATE IV Ondansetron HCl (ZOFRAN) 4 MG Q6H PRN PRN IV Potassium Chloride (KCL 20MEQ/SWFI 100ML) 100 ML ASDIR PRN IV Sodium Bicarbonate (SODIUM BICARBONATE) 50 MEQ ASDIR PRN IV Albumin Human (ALBUMINAR-25%) 12.5 GM ASDIR PRN IV Heparin Sodium (Porcine) (HEPARIN SODIUM) 3,000 UNIT ASDIR PRN DIALYSIS Lidocaine HCl (LIDOCAINE HCL/PF) 0.5 ML ASDIR PRN I-DERMAL (CKD) Mannitol (Mannitol 20%) 12.5 GM ASDIR PRN IV Sodium Chloride (SODIUM CHLORIDE 0.9%) 2,000 ML ASDIR PRN IV Tamsulosin HCl (Flomax 0.4 mg) 0.4 MG BEDTIME PO Physical ExamGeneral appearance: alert, awake, orientedHead/eyes: atraumatic, normocephalicENT: moist mucous membranes, normal noseNeck: non-tender, no JVDExtremities: no edema, no swellingNeuro/GIFT OFFICER: alert, oriented X 3, normal speechSkin: dry, intact ResultsFindings/Data:Laboratory Tests 07/17 07/17 0320 0320 Chemistry Sodium [...] (Auto) (14.0 - 32.0 %) 7.2 L Starke % (Auto) (4.8 - 9.0 %) 11.0 H Eos % (Auto) (0.3 - 3.7 %) 6.8 H Baso % (Auto) (0.0 - 2.0 %) 0.6 Neut # (Auto) (2.0 - 7.6 x10 3/uL) 7.90 H Lymph # (Auto) (1.0 - 3.8 x10 3/uL) 0.80 L Starke # (Auto) (0.1 - 0.8 x10 3/uL) 1.21 H Eos # (Auto) (0.0 - 0.2 x10 3/uL) 0.75 H Baso # (Auto) (0.0 - 0.2 x10 3/uL) 0.07 Abs Immat Gran (auto) (0.00 - 0.03 x10 3/uL) 0.31 H Add Manual Diff NO Immature Gran % (0.0 - 2.0 %) 2.8 H Nucleated RBC % (0 - 0 %) 0.0 Nucleated RBCs # (Man) (0.0 - 0.1 x10 3/uL) 0.00 Radiology data:Recent Impressions:RADIOLOGY - XR CHEST 1 V 07/17 0554 Report Impression - Status: SIGNED Entered: 07/17/2022 1135 IMPRESSION: 1. Stable postoperative cardiomediastinal silhouette. 2. Stable pulmonary opacities. 3. Stable pleural effusions. Pleural fluid/thickening extending over the left apex. No pneumothorax following thoracostomy tube removal. Impression By: Robert Ratliff M.D.ULTRASOUND - DUP VEIN WOJCIECH 07/17 1519 Report Impression - Status: SIGNED Entered: 07/17/2022 1545 IMPRESSION: No evidence of deep vein thrombosis. Superficial thrombus in the right greater saphenous vein. Complex hypoechoic area in the right inguinal region without internal vascular flow or peripheral hyperemia measuring 4.2 x 1.4 x 2.3 cm which may represent a hematoma.Impression By: [email or web address] - Delmer Palma M.D. Treatment Prophylaxis Treatment ProphylaxisDrain(s)/tube(s): Drain(s)/tube(s): chest Diagnosis, Assessment PlanFree Text A P:Assessment:1-CLAUDETTE likely from urinary retention. oliguric CLAUDETTE now post op, and shock!2- non-STEMI: multivessel disease w main left. S/P CABG X5 on - BPH. Waters catheter is in place.4-severe bilateral hydronephrosis5- shock : Cardiogenic6-hyperlipidemia7- AGMA Plan:- unknown Scr baseline but ultrasound suggestive MRD. - Ultrasound showed severe bilateral hydronephrosis. Continue Waters catheter. Urology consulted. - He underwent LHC on 07/03. Started on HD on 07/04. - s/p CABG X5 on 07/08-Excellent urine output after Lasix but no clearance w acidosis and hyperkalemia. - stopped NaHCO3 as started on HD. -TDC placed 07/15. plan for HD again on 07/16. no HD today. - repeat labs in am and assess need for HD. stble from nephrology for discharge to SNF Consultants: cardiology, cardiovascular surgery, nephrology at 1816 RPT #:[id number] OF REPORTPRProgress [id number]:55:[id number] Available for patient [id number]:49 [facility] 2022-07-17 12:45:00 [id number]:00 [facility] ([facility])Critical Care Progress NoteREPORT#:[id number] REPORT STATUS: SignedDATE:07/17/22 TIME: 1245 PATIENT: SHERRI ARCE UNIT #: [id number]#: [id number] ROOM[facility]BED: [facility] [place]-1DOB: [birth year] AGE: 81 SEX: M ATTEND: Sarbjit Mcarthur [facility] AUTHOR: Jana Mittal MD * ALL edits or amendments must be made on the electronic/computer document * SubjectiveChief complaint:CABGHPI:This is 81 years old male with medical history significant for HTN and dyslipidemia who presented to [facility] Thursday06/28/22 with chest pain and found to have a NSTEMI and also acute renal failure. He underwent cardiac cath and was found to have severe CAD including left main disease with EF of 30 to 35% and ischemic cardiomyopathy. Transfer here for CABG evaluation. CV surgery were consulted and the patient earlier today underwent CABG x 5 (MISTRY-LAD, SVG-Ladonna, SVG-OM1< SVG-OM3, SVG-PDA) and ALAA. His intraoperative course was without significant occurrence. The patient was brought to CVICU intubated and ventilated on milrinone drip, norepinephrine drip, epinephrine drip and vasopressin drip.His initial ABG showed metabolic acidosis and he received 2 A of sodium bicarb and 1 g of calcium.The patient started to wake up later in the evening but he looked weak, so he was reversed with neostigmine and glycopyrrolate. His motor strength improved significantly after that and his spontaneous breathing trial was good on the following ABG showed some metabolic acidosis. The patient will be extubated to a BiPAP as his CO2 was high on the ABG. Comments:Interval history- Patient waiting for SNF ,The SNF the family had accepted does not have a dialysis chair. New placement has been initiated with casework specialist Objective GeneralVS/I OLast Documented: Result Date Time Temp 36.7 07/17 [...] scale Measurement Method PATIENT WEIGHT: Weight (lb): 195Weight (oz): 12.33Weight (kg): 88.800 Medications:Active Meds + DC'd Last 24 HrsSodium Chloride (SODIUM CHLORIDE) 10 ML ASDIR IV Potassium Chloride (POTASSIUM CHLORIDE 10 MEQ TAB.ER) 10 MEQ ONCE ONE PO (DC) Amiodarone HCl (CORDARONE) 200 MG BID PO Cefazolin Sodium (KEFZOL OR ANCEF) 2 GM PREOP ONCALL IV (DC) Albumin Human (ALBUMINAR-25%) 12.5 GM ASDIR PRN IV Sodium Chloride (SODIUM CHLORIDE) 10 ML ASDIR PRN IV Midodrine (PROAMATINE) 10 MG 0900,1300,1700 PO Sodium Chloride (SODIUM CHLORIDE) 20 ML ASDIR IV (DC) Ipratropium [place] (ATROVENT) 500 MCG RTQ2H PRN PRN INH Lactulose (LACTULOSE) 20 GM DAILY PRN PRN PO Cyanocobalamin (Vitamin B-12 500 mcg tab) 500 MCG DAILY PO Ferrous Sulfate (FERROUS SULFATE) 325 MG DAILY PO Dopamine HCl/Dextrose (DOPamine 400MG/D5W 250ML) 250 ML ASDIR IV Bisacodyl (DULCOLAX) 10 MG ONCE PRN RECTAL Atorvastatin Calcium (LIPITOR) 40 MG 2100 PO Clopidogrel Bisulfate (Plavix) 75 MG DAILY PO Polyethylene Glycol (MIRALAX) 17 GM DAILY PO Calcium Chloride (CALCIUM CHLORIDE) 1 GM ASDIR PRN IV Sodium Chloride (SODIUM CHLORIDE 0.9%) 100 MLCalcium Chloride (CALCIUM CHLORIDE) 2 GM ASDIR PRN IV Sodium Chloride (SODIUM CHLORIDE 0.9%) 100 MLMagnesium Sulfate (MAGNESIUM SULFATE 4GM/SWFI 100ML) 100 ML ASDIR PRN IV Magnesium Sulfate (MAGNESIUM SULFATE 2GM/SWFI 50ML) 50 ML ASDIR PRN IV Potassium Chloride (KCL 10MEQ/SWFI 50ML) 50 ML ASDIR PRN IV Sodium Chloride (SODIUM CHLORIDE 0.9%) 2,000 ML ASDIR PRN IV Sodium Phosphate (SODIUM PHOSPHATE) 25 MMOL ASDIR PRN IV Sodium Chloride (SODIUM CHLORIDE 0.9%) 250 MLSodium Phosphate (SODIUM PHOSPHATE) 20 MMOL ASDIR PRN IV Sodium Chloride (SODIUM CHLORIDE 0.9%) 250 MLSodium Phosphate (SODIUM PHOSPHATE) 15 MMOL ASDIR PRN IV Sodium Chloride (SODIUM CHLORIDE 0.9%) 250 MLPantoprazole (PROTONIX) 40 MG DAILY@0600 PO Aspirin (ASPIRIN) 81 MG DAILY PO Vasopressin (VASOSTRICT 20 Unit/NS 100ML) 100 ML ASDIR IV (CKD) Docusate Sodium (COLACE) 100 MG BID PO Sennosides (Senna Lax 8.6 MG TABLET) 17.2 MG BEDTIME PO Ipratropium [place] (ATROVENT) 500 MCG RTQ4H INH Acetaminophen (TYLENOL) 650 MG Q4H PRN PRN PO Acetaminophen (TYLENOL) 650 MG Q4H PRN PRN RECTAL Calcium Chloride (CALCIUM CHLORIDE) 1 GM ASDIR PRN IV Dextrose/Water (DEXTROSE 10% IN WATER) 125 ML ASDIR PRN IV (CKD) Dextrose/Water (DEXTROSE 10% IN WATER) 250 ML ASDIR PRN IV (CKD) Epinephrine (ADRENALIN CHLORIDE) 4 MG ASDIR IV Dextrose/Water (DEXTROSE 5% WATER) 246 MLGlucagon (GLUCAGON) 1 MG ASDIR PRN IM Magnesium Sulfate (MAGNESIUM SULFATE 4GM/SWFI 100ML) 100 ML ASDIR PRN IV Magnesium Sulfate (MAGNESIUM SULFATE 2GM/SWFI 50ML) 50 ML ASDIR PRN IV Magnesium Sulfate/Dextrose (MAGNESIUM SULFATE 1GM/D5W 100ML) 100 ML ASDIR PRN IV Nitroglycerin/Dextrose (NITROGLYCERIN 50,000MCG/D5W 250ML) 250 ML ASDIR IV Norepinephrine Bitartrate (NOREPINEPHRINE 8 MG/NS 250 ML) 250 ML TITRATE IV Ondansetron HCl (ZOFRAN) 4 MG Q6H PRN PRN IV Potassium Chloride (KCL 20MEQ/SWFI 100ML) 100 ML ASDIR PRN IV Sodium Bicarbonate (SODIUM BICARBONATE) 50 MEQ ASDIR PRN IV Albumin Human (ALBUMINAR-25%) 12.5 GM ASDIR PRN IV Heparin Sodium (Porcine) (HEPARIN SODIUM) 3,000 UNIT ASDIR PRN DIALYSIS Lidocaine HCl (LIDOCAINE HCL/PF) 0.5 ML ASDIR PRN I-DERMAL (CKD) Mannitol (Mannitol 20%) 12.5 GM ASDIR PRN IV Sodium Chloride (SODIUM CHLORIDE 0.9%) 2,000 ML ASDIR PRN IV Tamsulosin HCl (Flomax 0.4 mg) 0.4 MG BEDTIME PO ResultsFindings/data:Laboratory Tests 07/17 07/17 0320 0320 Chemistry Sodium [...] (Auto) (14.0 - 32.0 %) 7.2 L Starke % (Auto) (4.8 - 9.0 %) 11.0 H Eos % (Auto) (0.3 - 3.7 %) 6.8 H Baso % (Auto) (0.0 - 2.0 %) 0.6 Neut # (Auto) (2.0 - 7.6 x10 3/uL) 7.90 H Lymph # (Auto) (1.0 - 3.8 x10 3/uL) 0.80 L Starke # (Auto) (0.1 - 0.8 x10 3/uL) 1.21 H Eos # (Auto) (0.0 - 0.2 x10 3/uL) 0.75 H Baso # (Auto) (0.0 - 0.2 x10 3/uL) 0.07 Abs Immat Gran (auto) (0.00 - 0.03 x10 3/uL) 0.31 H Add Manual Diff NO Immature Gran % (0.0 - 2.0 %) 2.8 H Nucleated RBC % (0 - 0 %) 0.0 Nucleated RBCs # (Man) (0.0 - 0.1 x10 3/uL) 0.00 Laboratory Tests 07/17/22 0320:[Embedded Image Not Available] Radiology dataRecent Impressions:RADIOLOGY - XR CHEST 1 V 07/17 0554 Report Impression - Status: SIGNED Entered: 07/17/2022 0755 IMPRESSION: 1. Stable postoperative cardiomediastinal silhouette. 2. Stable pulmonary opacities. 3. Stable pleural effusions. Pleural fluid/thickening extending over the left apex. No pneumothorax following thoracostomy tube removal. Impression By: Robert Ratliff M.D. Free Text Obj NotesFree Text Obj Notes:General appearance: Elderly male in no acute distress, interactive and conversationalHEENT: atraumatic, normocephalic, moist mucosal membranesNeck: full range of motion, supple/no meningismusCardiovascular: S1-S2 regular rate and rhythmRespiratory: symmetric expansion, no acute respiratory distressAbdomen: soft, non-tender, no distention, no guardingGenitourinary: waters with clear urineExtremities: pedal pulses palpable, moves all, no cyanosis, mild LE edema, right>leftMusculoskeletal: normal inspection, no muscle spasmNeuro/GIFT OFFICER: alert and oriented x3, CNII-XII grossly intact, no motor deficitsSkin: dry, intact and clean surgery dressing Treatment Prophylaxis Treatment ProphylaxisDrain(s)/tube(s): Drain(s)/tube(s): chest Diagnosis, Assessment PlanProblem list/A P: 1. CLAUDETTE (acute kidney injury) 2. CAD (coronary artery disease) 3. Goiter 4. BPH (benign prostatic hyperplasia) 5. Dyslipidemia 6. HTN (hypertension) Free text A P:73-year-old male with Acute pulmonary insufficiency following thoracic surgeryStatus post CABG x 5 (MISTRY-LAD, SVG-Ladonna, SVG-OM1< SVG-OM3, SVG-PDA) and ALAAAcute blood loss anemiaHypotensionIschemic cardiomyopathy, EF 30 to 34%Multivessel CADAKI on hemodialysis Continue mechanical ventilation, vent settings reviewedTitrate FiO2 to keep saturation more than 90%.Spontaneous breathing trial as soon as possibleWean to extubateFollow ABGs and CXRsABG shows metabolic acidosis. Patient received 2 A of sodium bicarb and 1 g of calciumKeep off sedationJudicious pain controlMilrinone drip 0.25Epinephrine dripNorepinephrine dripVasopressin dripTitrate drips to keep MAP more than 65Wean milrinone off first per CV surgeryMinimize fluids per CV surgeryAspirin and PlavixAtorvastatinMetoprololFollow lactate levelMonitor chest tube outputHemodialysis per nephrologyMonitor urine output and kidney functionMonitor and replete electrolytesPerioperative antibioticsCardiac diet with bowel regimen once extubatedBG control with insulin gtt per protocolPT/OTVTE prophylaxis.Stress ulcer prophylaxis.Discussed with CV surgery, anesthesia and ICU teamCritical care time 85 minutes 2/1Appears neuro intact, multimodal pain control, minimize narcotic use, no CO2 narcosisExtubated successfully, sats well on NC, wean O2, monitor for hypercapnia, encourage I-S, obtain serial ABGs, CXR reviewedHD unstable, weaning vasopressors and inotrope, monitor HD parameters, low CVP, lactic acidosis with uptrending lactate, gentle volume resuscitationOliguric CLAUDETTE, plan for CRRT per renal, hyperkalemia treated, obtain serial labPO challenge, bowel regimen, serial abdominal exam, monitor LFTsLeukocytosis postop, likely reactive, trend WBC, s/p antibiotic course for UTI ,periop antibioticsHgb trending down, no evidence of active bleed, monitor CTs output, RBC given HDinstabilityBlood glucose control with insulin drip per protocolEncourage PT/OT and activity as toleratedDVT and GI prophylaxis with DAPT and PPI 2/2Appears neuro intact, multimodal pain control, minimize narcotic usesats well on NC, wean O2, encourage I-S, ABG and CXR reviewedHD fairly stable, on minimal vasopressor support, lactic acidosis cleared s/p resuscitationOliguric CLAUDETTE, tolerated CRRT, holding off per renal, monitor UOP and electrolytes closelyOral diet as tolerated, bowel regimen, monitor LFTsLeukocytosis postop, trend WBC, treated for UTI preopHgb responded to PRBC, no evidence of active bleed, minimal CTs outputBlood glucose control, transitioned insulin drip to SSIEncourage PT/OT and out of bed as toleratedDVT and GI prophylaxis with DAPT and PPI 2/3Remains neuro intact, pain appears well controlledSats well on NC, wean O2, encourage I-S, ABG and CXR reviewedHD unstable, remains on minimal vasopressor support, attempt to wean, start midodrineOliguric CLAUDETTE, off CRRT per renal, minimal UOP, started renal dose dopamine dripTolerating oral diet, continue bowel regimen, LFTs normalizedLeukocytosis postop, continue to trend WBC, treated for UTI preopHgb stable s/p PRBC, no evidence of active bleed, monitor pCT outputBlood glucose control with sliding scale insulinEncourage PT/OT and out of bed as tolerated, CM for dispo planDVT and GI prophylaxis with DAPT and PPI 2/4Remains neuro intact, pain appears well controlledSats well on NC, wean O2, encourage I-S, ABG and CXR reviewedHD unstable, weaning vasopressors, increase midodrine dose, remains in SRAKI, likely postrenal, improved UOP, HD today per renal, hyperkalemia treatedTolerating oral diet, has bowel movement and bowel regimen, LFTs normalizedLeukocytosis, WBC trending down, currently off antibiotics s/p treatment for UTIHgb remains stable s/p PRBC, no evidence of active bleed, minimal CT outputBlood glucose control with sliding scale insulinEncourage PT/OT and out of bed as tolerated, CM for dispo plan, IPR consultedDVT and GI prophylaxis with DAPT and PPI 2/5Remains neuro intact, pain appears well controlledSats well, wean O2, encourage I-S, ABG and CXR reviewed, has left PTXHD stable off vasopressors, increased midodrine doseAKI, likely postrenal, making urine, HD per renal, renal US with hydronephrosisTolerating oral diet, has bowel movement and bowel regimenLeukocytosis, WBC trending down, monitor off antibiotics s/p treatment for UTIHgb remains stable s/p PRBC, no evidence of active bleed, keep CT to suctionBlood glucose control with sliding scale insulinTolerating PT/OT, CM for dispo plan, IPR on boardDVT and GI prophylaxis with DAPT and PPI 07/14Neuro Intact. Pain well controlled.Is off oxygen. On room air saturating more than 94%. Imaging chest x-ray reviewed. Still has a persistent left pneumothorax. IR guided pigtail was placed today , CXR shows expansion of the lung Maintaining the blood pressure on midodrine 5 3 times daily.Making good urine. Monitor the potassium. As per renal we will see if he needsdialysis tomorrow then will need a tunneled catheter.White count remained stable. No antibiotics.And bowel movement. Continue bowel regimen.Urology evaluation pending.PT OT. Pending rehab placement when medically ready. 07/15Neurologically intact. Pain is well controlled.He is on room air.Chest x-ray reviewed. Very small pneumothorax/. Does have bilateral pulmonary infiltrates.Continue pigtail to suction.Patient making good urine but his BUN/creatinine is still worsening.We will have tunneled dialysis catheter today. Renal following.Will discontinue Waters and monitor for trial of void if fails then will need Waters replaced back. Continue Flomax. Urology following.We will increase the midodrine to 10 3 times daily.Continue PT and PPI.SCDs for DVT prophylaxis.Disposition is SNF. 07/16Neurologically intact pain well controlled.getting hemodialysis today.Chest x-ray and ABG personally reviewed. Repeat chest x-ray after clamping of the tube did not show any new pneumothorax. Chest tube was removed.Patient continues to remain on room air.No signs of infection.Continue with midodrine.Underwent hemodialysis today. Tolerated well.DAPT and PPI for GI prophylaxis.SCDs.[place]. Awaiting for dialysis bedDaughter was updated about this plan by me. 07/17Neurologically intact. Patient's pain well controlled.On room air.Maintaining sats more than 94%.Will decrease midodrine to 5 3 times daily.No hemodialysis today. Discussed with renal. We will monitor for urine output and repeat BMP tomorrow and assess for dialysis.If any concern for fluid overload then to give Lasix 60 IV one-timeDAPT and PPI for GI prophylaxis.SCDs.Will get Doppler lower extremity study to rule out DVT.manager product is working on SNF placement with Dialysis bed Close to the patient's home.Transfer to floor Consultants: cardiology, cardiovascular surgery, nephrology Quality: Gen Med Crit Care VTE ProphylaxisVTE prophylaxis initiated: yes at 1448 RPT #:[id number] OF REPORTPRProgress [id number] Available for patient [id number] HCACL 2022-07-17 09:16:00 [id number] [facility] ([facility])Cardiology Progress NoteREPORT#:[id number] REPORT STATUS: SignedDATE:07/17/22 TIME: 915 PATIENT: SHERRI ARCE UNIT #: [id number]#: [id number] [address] AGE: 81 SEX: M ATTEND: Srinath Kaur AUTHOR: Sonya Stacy * ALL edits or amendments must be made on the electronic/computer document * SubjectivePatient reports:No: complaints. Objective GeneralVS/I O:24 hour I O ending at 0700: 07/17 [...] O2 Flow FiO2 Mean Ox Delivery Rate 07/17 0735 92 Room air 07/16 1999 36.6 07/16 1953 95 Room air 07/16 1902 36.5 92 22 124/65 07/16 1700 79 26 121/63 86 95 07/16 1600 36.6 78 26 112/59 76 93 Room air 07/16 1600 78 26 112/59 80 93 07/16 1535 97 Room air 21 07/16 1530 79 25 109/60 78 93 02/08 [...] 103/58 78 92 PATIENT WEIGHT: Weight (lb): 195Weight (oz): 12.33Weight (kg): 88.800 Medications:Active Meds + DC'd Last 24 HrsPotassium Chloride (POTASSIUM CHLORIDE 10 MEQ TAB.ER) 10 MEQ ONCE ONE PO (DC) Amiodarone HCl (CORDARONE) 200 MG BID PO Cefazolin Sodium (KEFZOL OR ANCEF) 2 GM PREOP ONCALL IV (DC) Albumin Human (ALBUMINAR-25%) 12.5 GM ASDIR PRN IV Sodium Chloride (SODIUM CHLORIDE) 10 ML ASDIR PRN IV Midodrine (PROAMATINE) 10 MG 0900,1300,1700 PO Sodium Chloride (SODIUM CHLORIDE) 20 ML ASDIR IV (DC) Sodium Bicarbonate (SODIUM BICARBONATE) 650 MG BID PO (DC) Ipratropium [place] (ATROVENT) 500 MCG RTQ2H PRN PRN INH Lactulose (LACTULOSE) 20 GM DAILY PRN PRN PO Cyanocobalamin (Vitamin B-12 500 mcg tab) 500 MCG DAILY PO Ferrous Sulfate (FERROUS SULFATE) 325 MG DAILY PO Dopamine HCl/Dextrose (DOPamine 400MG/D5W 250ML) 250 ML ASDIR IV Bisacodyl (DULCOLAX) 10 MG ONCE PRN RECTAL Atorvastatin Calcium (LIPITOR) 40 MG 2100 PO Clopidogrel Bisulfate (Plavix) 75 MG DAILY PO Polyethylene Glycol (MIRALAX) 17 GM DAILY PO Calcium Chloride (CALCIUM CHLORIDE) 1 GM ASDIR PRN IV Sodium Chloride (SODIUM CHLORIDE 0.9%) 100 MLCalcium Chloride (CALCIUM CHLORIDE) 2 GM ASDIR PRN IV Sodium Chloride (SODIUM CHLORIDE 0.9%) 100 MLMagnesium Sulfate (MAGNESIUM SULFATE 4GM/SWFI 100ML) 100 ML ASDIR PRN IV Magnesium Sulfate (MAGNESIUM SULFATE 2GM/SWFI 50ML) 50 ML ASDIR PRN IV Potassium Chloride (KCL 10MEQ/SWFI 50ML) 50 ML ASDIR PRN IV Sodium Chloride (SODIUM CHLORIDE 0.9%) 2,000 ML ASDIR PRN IV Sodium Phosphate (SODIUM PHOSPHATE) 25 MMOL ASDIR PRN IV Sodium Chloride (SODIUM CHLORIDE 0.9%) 250 MLSodium Phosphate (SODIUM PHOSPHATE) 20 MMOL ASDIR PRN IV Sodium Chloride (SODIUM CHLORIDE 0.9%) 250 MLSodium Phosphate (SODIUM PHOSPHATE) 15 MMOL ASDIR PRN IV Sodium Chloride (SODIUM CHLORIDE 0.9%) 250 MLPantoprazole (PROTONIX) 40 MG DAILY@0600 PO Aspirin (ASPIRIN) 81 MG DAILY PO Vasopressin (VASOSTRICT 20 Unit/NS 100ML) 100 ML ASDIR IV (CKD) Docusate Sodium (COLACE) 100 MG BID PO Sennosides (Senna Lax 8.6 MG TABLET) 17.2 MG BEDTIME PO Ipratropium [place] (ATROVENT) 500 MCG RTQ4H INH Acetaminophen (TYLENOL) 650 MG Q4H PRN PRN PO Acetaminophen (TYLENOL) 650 MG Q4H PRN PRN RECTAL Calcium Chloride (CALCIUM CHLORIDE) 1 GM ASDIR PRN IV Dextrose/Water (DEXTROSE 10% IN WATER) 125 ML ASDIR PRN IV (CKD) Dextrose/Water (DEXTROSE 10% IN WATER) 250 ML ASDIR PRN IV (CKD) Epinephrine (ADRENALIN CHLORIDE) 4 MG ASDIR IV Dextrose/Water (DEXTROSE 5% WATER) 246 MLGlucagon (GLUCAGON) 1 MG ASDIR PRN IM Magnesium Sulfate (MAGNESIUM SULFATE 4GM/SWFI 100ML) 100 ML ASDIR PRN IV Magnesium Sulfate (MAGNESIUM SULFATE 2GM/SWFI 50ML) 50 ML ASDIR PRN IV Magnesium Sulfate/Dextrose (MAGNESIUM SULFATE 1GM/D5W 100ML) 100 ML ASDIR PRN IV Nitroglycerin/Dextrose (NITROGLYCERIN 50,000MCG/D5W 250ML) 250 ML ASDIR IV Norepinephrine Bitartrate (NOREPINEPHRINE 8 MG/NS 250 ML) 250 ML TITRATE IV Ondansetron HCl (ZOFRAN) 4 MG Q6H PRN PRN IV Potassium Chloride (KCL 20MEQ/SWFI 100ML) 100 ML ASDIR PRN IV Sodium Bicarbonate (SODIUM BICARBONATE) 50 MEQ ASDIR PRN IV Albumin Human (ALBUMINAR-25%) 12.5 GM ASDIR PRN IV Heparin Sodium (Porcine) (HEPARIN SODIUM) 3,000 UNIT ASDIR PRN DIALYSIS Lidocaine HCl (LIDOCAINE HCL/PF) 0.5 ML ASDIR PRN I-DERMAL (CKD) Mannitol (Mannitol 20%) 12.5 GM ASDIR PRN IV Sodium Chloride (SODIUM CHLORIDE 0.9%) 2,000 ML ASDIR PRN IV Tamsulosin HCl (Flomax 0.4 mg) 0.4 MG BEDTIME PO Status post:07/08/22 CABG x 5 (MISTRY-LAD, SVG-Ladonna, SVG-OM1< SVG-OM3, SVG-PDA) ALAA Physical ExamGeneral appearance: alert, awakeHead/Eyes: atraumaticENT: moist mucosal membranesNeck: no JVDCardiovascular: CV assessment: pedal edema, regular rate and rhythm, no murmurRespiratory: decreased breath sounds, no distressAbdomen: soft, non-tender, normal bowel sounds, no distention, no guardingUpper extremity: UE assessment: normal temperature, no edemaLower extremity: LE assessment: edema (2 to 3+ pitting edema), normal temperature, no edemaMusculoskeletal: normal inspectionNeuro/GIFT OFFICER: alert, oriented X 3, normal speechSkin: dryPsychiatry: normal affect ResultsFindings/Data:Laboratory Tests 07/17 07/17 0320 0320 Chemistry Sodium [...] (Auto) (14.0 - 32.0 %) 7.2 L Starke % (Auto) (4.8 - 9.0 %) 11.0 H Eos % (Auto) (0.3 - 3.7 %) 6.8 H Baso % (Auto) (0.0 - 2.0 %) 0.6 Neut # (Auto) (2.0 - 7.6 x10 3/uL) 7.90 H Lymph # (Auto) (1.0 - 3.8 x10 3/uL) 0.80 L Starke # (Auto) (0.1 - 0.8 x10 3/uL) 1.21 H Eos # (Auto) (0.0 - 0.2 x10 3/uL) 0.75 H Baso # (Auto) (0.0 - 0.2 x10 3/uL) 0.07 Abs Immat Gran (auto) (0.00 - 0.03 x10 3/uL) 0.31 H Add Manual Diff NO Immature Gran % (0.0 - 2.0 %) 2.8 H Nucleated RBC % (0 - 0 %) 0.0 Nucleated RBCs # (Man) (0.0 - 0.1 x10 3/uL) 0.00 Laboratory Tests 07/17 0320 Chemistry Magnesium (1.80 - 2.40 mg/dL) 2.00 Radiology data:Recent Impressions:RADIOLOGY - XR CHEST 1 V 07/16 1055 Report Impression - Status: SIGNED Entered: 07/16/2022 3458 IMPRESSION: 1. Small left and stable small right layering pleural effusion. 2. Left chest tube present. No pneumothorax. 3. Stable bibasilar airspace opacities Impression By: [email or web address] - Som Enriquez M.D.RADIOLOGY - XR CHEST 1 V 07/17 0828 Report Impression - Status: SIGNED Entered: 07/17/2022 7722 IMPRESSION: 1. Stable postoperative cardiomediastinal silhouette. 2. Stable pulmonary opacities. 3. Stable pleural effusions. Pleural fluid/thickening extending over the left apex. No pneumothorax following thoracostomy tube removal. Impression By: Robert Ratliff M.D. Results: labs reviewed, vital signs reviewedTelemetry Interpretation:sinus rhythm Diagnosis, Assessment PlanProblem List/A P: 1. HTN (hypertension) 2. CLAUDETTE (acute kidney injury) 3. CAD (coronary artery disease) 4. Dyslipidemia 5. BPH (benign prostatic hyperplasia) Plan discussed with: patient, nurse Free Text DxA P NotesFree Text DxA P Notes:Mr. Arce is a pleasant 81 y/o M w/ PMHx: HTN, HLD presented to [facility] on 06/28/22 for chest pain and sob. He was diagnosed NSTEMI. LHC showed multivessel CAD. Transferred to [facility] for CABG. 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 urology consulted for bladded outlet obstruction and hydronephrosis, started on Flomax creatinine trending done after being started on HD HD per nephro - HTN. hypotension post-op, BP Stable on midodrine off Pressors. Midodrine 10 mg po tid. - HLD. On statins. - Anemia. monitor Dong well today. at 1245 at 1057 RPT #:[id number] OF REPORTPRProgress [id number] Available for patient [id number] HCACL 2022-07-17 07:32:00 [id number]:32:00 [facility] ([facility])Cardiothoracic Surgery ProgREPORT#:[id number] REPORT STATUS: SignedDATE:07/17/22 TIME: 731 PATIENT: SHERRI ARCE UNIT #: [id number]#: [id number] [address] [birth year] AGE: 81 SEX: M ATTEND: Srinath Kaur [facility] AUTHOR: Gianna Hoover * ALL edits or amendments must be made on the electronic/computer document * GeneralPost-op: day 9Status post:07/08/22 CABG x 5 (MISTRY-LAD, SVG-Ladonna, SVG-OM1< SVG-OM3, SVG-PDA) ALAA EVH (RGSV) SubjectiveChief complaint:s/p CABG no complaints Review of SystemsConstitutional:Denies: chills, fever, malaise. Allergy/Immun:Denies: allergic reaction. Respiratory:Denies: SOB. Cardiovascular:Denies: chest pain, palpitations. GI:Denies: abdominal pain, nausea, vomiting. :Denies: dysuria, hematuria. Heme:Denies: bleeding. Neuro:Denies: dizziness, headache, vision change. All systems rev neg: except as marked Objective GeneralVS/I OLast Documented: Result Date Time Temp 97.8 07/16 1999 Pulse Ox 95 07/16 1952 O2 Delivery [...] Output, Urine 950 PATIENT WEIGHT: Weight (lb): 200Weight (oz): 13.46Weight (kg): 91.100 Dietitian Nutrition assessmentThe data set between the solid lines has been imported from the dietitian's assessment. BMI Calculated: 27.2Nutrition related diagnosis: Nutrition diagnosis details: Nutrition problem: Increased nutrient needsNutrition etiology: Chronic diseaseNutrition signs and symptoms: ESTIMATED NEEDS S/P CABGNutrition prescription: 1. RECOMMEND CONTINUE RENAL DIET. 2. CONTINUE NEPRO BID. 3. MONITOR PO, WT, LABS, BM.Dietitian name: Trang Rodriguez, DIETAssessment completed: 07/16/22 Physical ExamGeneral appearance: alert, awake, orientedWound/incision: Location:sternal Site condition: edges approximated, incision intactHEENT: anicteric, mucosal membranes moistNeck: supple/no meningismusCardiovascular: normal heart sounds, regular rate rhythmRespiratory: aerating well, symmetric expansion, no distressAbdomen: soft, non-tender, no distentionGenitourinary: no foleyExtremities: moves allNeuro/GIFT OFFICER: alert, oriented X 3, normal speech, no motor deficitsPsychiatry: normal affect, normal mood Current MedicationsMedications:Active Meds + DC'd Last 24 HrsPotassium Chloride (POTASSIUM CHLORIDE 10 MEQ TAB.ER) 10 MEQ ONCE ONE PO (DC) Amiodarone HCl (CORDARONE) 200 MG BID PO Cefazolin Sodium (KEFZOL OR ANCEF) 2 GM PREOP ONCALL IV (DC) Albumin Human (ALBUMINAR-25%) 12.5 GM ASDIR PRN IV Sodium Chloride (SODIUM CHLORIDE) 10 ML ASDIR PRN IV Midodrine (PROAMATINE) 10 MG 0900,1300,1700 PO Sodium Chloride (SODIUM CHLORIDE) 20 ML ASDIR IV (DC) Sodium Bicarbonate (SODIUM BICARBONATE) 650 MG BID PO (DC) Ipratropium [place] (ATROVENT) 500 MCG RTQ2H PRN PRN INH Lactulose (LACTULOSE) 20 GM DAILY PRN PRN PO Cyanocobalamin (Vitamin B-12 500 mcg tab) 500 MCG DAILY PO Ferrous Sulfate (FERROUS SULFATE) 325 MG DAILY PO Dopamine HCl/Dextrose (DOPamine 400MG/D5W 250ML) 250 ML ASDIR IV Bisacodyl (DULCOLAX) 10 MG ONCE PRN RECTAL Atorvastatin Calcium (LIPITOR) 40 MG 2100 PO Clopidogrel Bisulfate (Plavix) 75 MG DAILY PO Polyethylene Glycol (MIRALAX) 17 GM DAILY PO Calcium Chloride (CALCIUM CHLORIDE) 1 GM ASDIR PRN IV Sodium Chloride (SODIUM CHLORIDE 0.9%) 100 MLCalcium Chloride (CALCIUM CHLORIDE) 2 GM ASDIR PRN IV Sodium Chloride (SODIUM CHLORIDE 0.9%) 100 MLMagnesium Sulfate (MAGNESIUM SULFATE 4GM/SWFI 100ML) 100 ML ASDIR PRN IV Magnesium Sulfate (MAGNESIUM SULFATE 2GM/SWFI 50ML) 50 ML ASDIR PRN IV Potassium Chloride (KCL 10MEQ/SWFI 50ML) 50 ML ASDIR PRN IV Sodium Chloride (SODIUM CHLORIDE 0.9%) 2,000 ML ASDIR PRN IV Sodium Phosphate (SODIUM PHOSPHATE) 25 MMOL ASDIR PRN IV Sodium Chloride (SODIUM CHLORIDE 0.9%) 250 MLSodium Phosphate (SODIUM PHOSPHATE) 20 MMOL ASDIR PRN IV Sodium Chloride (SODIUM CHLORIDE 0.9%) 250 MLSodium Phosphate (SODIUM PHOSPHATE) 15 MMOL ASDIR PRN IV Sodium Chloride (SODIUM CHLORIDE 0.9%) 250 MLPantoprazole (PROTONIX) 40 MG DAILY@0600 PO Aspirin (ASPIRIN) 81 MG DAILY PO Vasopressin (VASOSTRICT 20 Unit/NS 100ML) 100 ML ASDIR IV (CKD) Docusate Sodium (COLACE) 100 MG BID PO Sennosides (Senna Lax 8.6 MG TABLET) 17.2 MG BEDTIME PO Ipratropium [place] (ATROVENT) 500 MCG RTQ4H INH Acetaminophen (TYLENOL) 650 MG Q4H PRN PRN PO Acetaminophen (TYLENOL) 650 MG Q4H PRN PRN RECTAL Calcium Chloride (CALCIUM CHLORIDE) 1 GM ASDIR PRN IV Dextrose/Water (DEXTROSE 10% IN WATER) 125 ML ASDIR PRN IV (CKD) Dextrose/Water (DEXTROSE 10% IN WATER) 250 ML ASDIR PRN IV (CKD) Epinephrine (ADRENALIN CHLORIDE) 4 MG ASDIR IV Dextrose/Water (DEXTROSE 5% WATER) 246 MLGlucagon (GLUCAGON) 1 MG ASDIR PRN IM Magnesium Sulfate (MAGNESIUM SULFATE 4GM/SWFI 100ML) 100 ML ASDIR PRN IV Magnesium Sulfate (MAGNESIUM SULFATE 2GM/SWFI 50ML) 50 ML ASDIR PRN IV Magnesium Sulfate/Dextrose (MAGNESIUM SULFATE 1GM/D5W 100ML) 100 ML ASDIR PRN IV Nitroglycerin/Dextrose (NITROGLYCERIN 50,000MCG/D5W 250ML) 250 ML ASDIR IV Norepinephrine Bitartrate (NOREPINEPHRINE 8 MG/NS 250 ML) 250 ML TITRATE IV Ondansetron HCl (ZOFRAN) 4 MG Q6H PRN PRN IV Potassium Chloride (KCL 20MEQ/SWFI 100ML) 100 ML ASDIR PRN IV Sodium Bicarbonate (SODIUM BICARBONATE) 50 MEQ ASDIR PRN IV Albumin Human (ALBUMINAR-25%) 12.5 GM ASDIR PRN IV Heparin Sodium (Porcine) (HEPARIN SODIUM) 3,000 UNIT ASDIR PRN DIALYSIS Lidocaine HCl (LIDOCAINE HCL/PF) 0.5 ML ASDIR PRN I-DERMAL (CKD) Mannitol (Mannitol 20%) 12.5 GM ASDIR PRN IV Sodium Chloride (SODIUM CHLORIDE 0.9%) 2,000 ML ASDIR PRN IV Tamsulosin HCl (Flomax 0.4 mg) 0.4 MG BEDTIME PO ResultsFindings/Data:Laboratory Tests 07/17 07/17 0320 0320 Chemistry Sodium [...] (Auto) (14.0 - 32.0 %) 7.2 L Starke % (Auto) (4.8 - 9.0 %) 11.0 H Eos % (Auto) (0.3 - 3.7 %) 6.8 H Baso % (Auto) (0.0 - 2.0 %) 0.6 Neut # (Auto) (2.0 - 7.6 x10 3/uL) 7.90 H Lymph # (Auto) (1.0 - 3.8 x10 3/uL) 0.80 L Starke # (Auto) (0.1 - 0.8 x10 3/uL) 1.21 H Eos # (Auto) (0.0 - 0.2 x10 3/uL) 0.75 H Baso # (Auto) (0.0 - 0.2 x10 3/uL) 0.07 Abs Immat Gran (auto) (0.00 - 0.03 x10 3/uL) 0.31 H Add Manual Diff NO Immature Gran % (0.0 - 2.0 %) 2.8 H Nucleated RBC % (0 - 0 %) 0.0 Nucleated RBCs # (Man) (0.0 - 0.1 x10 3/uL) 0.00 Radiology data:Recent Impressions:RADIOLOGY - XR CHEST 1 V 07/16 1055 Report Impression - Status: SIGNED Entered: 07/16/2022 1158 IMPRESSION: 1. Small left and stable small right layering pleural effusion. 2. Left chest tube present. No pneumothorax. 3. Stable bibasilar airspace opacities Impression By: [email or web address] - Som Enriquez M.D. Results: labs reviewed, vital signs stable, rythm personally rev'd, x-ray personally reviewed, current med profile rev'd Quality: Trauma Gen Surg Advanced Care Plan 65 or OlderDiscussed with: patientDiscussion included: living will (none), power of school commissioner (none), code status (full code) VTE Prophylaxis - GeneralVTE prophylaxis initiated: yes Diagnosis, Assessment PlanHospital course to date:This is a 81-year-old gentleman who presented to an outside hospital with complaints of chest pains while walking at his home on Thursday. He denies any previous history of coronary artery disease or other [place]. He was seen and evaluated at [facility]. He was found to have a urinary tract infection with urinary retention and acute kidney. He was started on dialysis via a left femoral temporary catheter. He underwent dialysis on Thursday, Thursday. Renal has been consultedDuring his work-up at outside hospital he underwent Left heart catheterization showing severe Left Main 70%. LAD: Proximal diffuse 80% stenosis and then diffuse 60% in the midsegment and on the distal segment, there is focal 70% stenosis. Diagonal branches with luminal irregularities. Left circumflex, codominant circulation with proximal 80%, mid 80 to 90% and then in the OM, there is proximal 60%, distal left circumflex has a 70% stenosis. RCA large and dominant with proximal 40% stenosis, mid 60% stenosis and then diffuse 50% stenosis all the way distally and the PLV and the PDA with luminal irregularities. CV surgery consulted for evaluation for coronary bypass graft. CAROTIDS- No carotid stenosis CT chest complete IMPRESSION: Small bilateral pleural effusions with bibasilar atelectasis. Echo:1. Left ventricle: The cavity size is at the upper limits of normal. Wall thickness is mildly increased. Systolic function is severely reduced. The estimated ejection fraction is 30-34%. Moderate hypokinesis of the entire myocardium. Doppler parameters are consistent with abnormal left ventricular relaxation (grade 1 diastolic dysfunction).2. Pericardium, extracardiac: A small pericardial effusion is identified along the left ventricular free wall, along the right ventricular free wall, and along the right atrial free wall. Assessment/Plan1) CAD Mutlivessel Will obtain echo,carotids. 2) CLAUDETTE Started dialysis on Creatine 7.3 Renal consulted. 3) BPH- Urinary retention. Waters in place Workup for CABG underway. Will get functional assessment with PT. PFT pending Carotid dopplers- No disease Echo PendingDialyiss per Renal. Baseline Cr unknown. 07/04 07/04 Doing well today, alert, up in the chair. Denies chest painEchocardiogram showed LVEF 30 to 34%, mild MR, trivial TRCT chest images reviewedEncourage I-S and mobilizationCreatinine 5.5 from 7.3, good urine output. Renal US showed bilateral severe hydronephrosis. Plan for HD today and tomorrow Will tentatively schedule patient for surgery on Thursday.Patient seen and plan reviewed with Dr Schwarz 07/05 Remains in a stable condition, denies chest pain BUN 53, creatinine 5.4. Plan for hemodialysis today and tomorrow for clearanceHe is also on Lasix 20 mg IV twice daily, urine output 1.1 L overnightWe will calculate risk of surgery with STS scoreEncourage I-S and mobilizationWill tentatively schedule patient for surgery on Thursday.Pt seen and plan reviewed with Dr Schwarz 07/06 BUN 36, creatinine 4.4. Plan for hemodialysis todayAwaiting CABG tomorrowSurgery, risks involved, STS score, benefits, complications and alternatives were explained to the patient. He acknowledged understanding and is willing to proceedN.p.o. after midnightPatient seen and plan reviewed with Dr. Schwarz 07/09/22POD 1CABG x 5 (MISTRY-LAD, SVG-Ladonna, SVG-OM1< SVG-OM3, SVG-PDA), ALAA, EVH (RGSV)Patient hemodynamically unstable, on epi at 4, and vaso .04, decreased uop overnight- 150ccStarted patient on CRRT 2k/3.5Wean epi as tolerated, Cardiac incex 2.8-3labs and chest x-ray reviewed, electrolytes stable, hgb 6.5- transfuse 2 units PRBCOn 4l nasal cannula- encourage incentive spirometer and deep breathingKeep both chest tubes and monitor outputsGlycemic control on insulin dripCardiac dietBowel regimen protocolPain managementSCDs for DVT and PPI for GI prophylaxisPT/OTMonitor patient closely in CVICUPlan of care discussed with Dr. Schwarz 07/10/22POD 2Patient alert, awake, and oriented, no distres notedlabs and CXR reviewed stableBreathing comfortably on 3l nasal cannula- wean as tolerated to melissa O2 sats > 92%Encourage I-S use and deep breathingOn CRRT- able to remove 2.9L overnight- nephrology followingCardiac index 3.1- wean off epi dripKeep chest tubes for now and monitor outputsTransition to sliding scale insulin- cardiac dietTry to get patient out of bed to chair today- ambulate with PT/OTSCDs for DVT prophylaxisKeep patient in CVICU for close monitoring 07/11/22PO 3Patient in stable condition, overnight events noted- decreased urine output 35 ml last night-started on dopamine gtt for renal perfusionCardiac index 3.5- epi currently at 2- will discontinue today, vasopressin at 0.02, added low dose midodrine 2.5 mg TID, repeat echocardiogram.Renal Following- trial LasixPatient has Left femoral temp dialysis cath, Will need tunneled dialysis IJ cathplaced if need dialysis. On 5l nasal cannula- wean off as tolerated, encourage incentive spirometer and deep breathingKeep left pleural chest tube and monitor output- > 200 cc Tolerating diet, bowel regimen protocolPT/OT- patient out of bed to chair today- encourage ambulationDVT prophylaxis with SCDsMonitor patient closely in CVICUPlan discussed with multidisciplinary teamPlan discussed with Dr Schwarz/ Dr Rodríguez 07/12/22PO 5,Patient resting comfortable. Patient with hx of urinary retention- After standing today- voided 1.4 L. Needs Urology consult for retention K 5.4- HD in progress. Dr Plaza following. CT output 20- DC today. Pacers remain in place. Patient has Left femoral temp dialysis cath, Re-evaluate on Thursday if fpc dialysis needed. Card: Remains in sinus rhythm. Respir: on 7 L NC O2 95%Dispo: Rehab consultedPatient seen and exmained by Dr Rodríguez. Plan discussed with Team 07/13/22 5Patient with no new complaints. Recieved HD yesterday.Requiring less oxygen, now on 3l nasal cannula- continue to wean offCXR reviewed left apical pneumothorax 4cm/30%, Chest tube drained 140 overnight,placed back on suction to clear pneumo, CT drianed 200cc this AM. on suction. Labs reviewed- stable, decreased WBC, hgb stable, CR 3.9Eating welll, +BMUO- 550CC, BP improved on midodrine. Continue PT/OT, ambulation and incentive spirometer useRehab folowing Monitor in ICU todayDisucssed with Dr Schwarz- DC femoral line and Central line today. DC art line. Will re-eval need for dialysis cath Thursday. Consider tunnelled cath if need.Patient seen and examined by Dr Rodríguez. Plan discussed with Care team. 07/14POD 6Patient in stable condition, no distress notedRemains on room air, O2 sats > 92%, encourage I-S use and deep breathingCXR shows moderate left apical pneumothorax unchangedCT remained on suction, no airleak noConsult IR for pigtail chest tube placement this morningCardiac/renal dietLabs reviewed- K 5.1- repeat labs K 4.8Nephrology followingContinue therapy with PT/OTFollow up with urology for waters catheter- Dr Harris consulted.Monitor in CVICUPlan of care discussed with Dr Schwarz and multidisciplinary team 07/15/22PO 7Patient alert, awake, and oriented, no distress, no complaints at this timeBreathing comfortable on room airCXR shows resolved pneumothoraxLP and pigtail chest tube- no air leak noted, minimal output from LP 40 overnightLabs reviewed, K 5.2- corrected, follow up with nephrology to discuss need for dialysisTrend labs this afternoonBowel regimen, +gasFoley catheter discontinued per urology- voiding trial this AMAmbulation and incentive spirometer use encouragedDVT prophylaxis with SCDsKeep in ICU DISP: SNF- Case management Discussed plan of care with multidisciplinary team and Dr. Schwarz 3POD 8Patient doing well, alert, awake, and orientedO2 sats 93% on room air, encourage I-SCXR stable- no pneumo notedLeft pigtail chest tube - no air leak, clamped this morning, repeat CXRPlacement of tunneled dialysis catheter (BioFlo DuraMax 28 cm) yesterdayHD treatment done yesterday evening, plan for HD treatment today per nephrologyPatient failed voiding trial, waters catheter replaced- follow up with urologyEating wellContinue PT/OT- ambulationTransfer to CV 1 intermediate care unitDischarge planning for SNF- CM following and to set up dialysis chairPatient seen with Dr. Schwarz and discussed plan of care with multidisciplinary team. 07/17/22Patient in stable condition, no complaintsLabs and CXR reviewed- stableLeft pigtail chest tube discontinued yesterday- no pneumo notedRemains on room air, no distress- I-S encouragedCardiac diet, +BMKeep waters per urology f/u outpt, continue flomaxHD per nephrology- CM to setup outpt dialysis chairAwaiting bed availability on CV 1Discharge planning- SNFPlan of care discussed with multidisciplinary team and Dr. Schwarz. Consultants: cardiology, cardiovascular surgery, nephrology at 1431 at [phone] RPT #:[id number] OF REPORTPRProgress [id number]:[id number] Available for patient [id number]:32:28 [facility]L 2022-07-16 20:47:00 [id number]:00 [facility] ([facility])Hospitalist Progress NoteREPORT#:[id number] REPORT STATUS: SignedDATE:07/16/22 TIME: 2046 PATIENT: SHERRI ARCE UNIT #: [id number]#: [id number] [address] AGE: 81 SEX: M ATTEND: Sarbjit Mcarthur AUTHOR: Sarbjit Mcarthur MD * ALL edits or amendments must be made on the electronic/computer document * SubjectiveChief complaint:Status post CABG x5 on 07/09, Doing well today. Ambulated around the unit.HPI:81 y/o man with PMHx of HTN, Dyslipidemia that [facility] with chest pain and found to have a NSTEMI and also acute renal failure. Underwent cardiac cath yesterday and found to have severe CAD including left main disease. Transfer here for CABG evaluation. He also underwent HD Thursday and Thursday of this week. HD catheter was place at [facility]. Currently not having any chest pain. Had chest pain with SOB when he presentted to the previous hospital. Objective GeneralVS/I O:Vital Signs: Date Time Temp Pulse Resp B/P B/P Pulse O2 O2 Flow FiO2 Mean Ox Delivery Rate 07/16 1953 95 Room air 07/16 1902 97.7 92 22 124/65 02/08 1700 79 26 121/63 86 95 02/08 1600 97.9 78 26 112/59 76 93 Room air 02/08 1600 78 26 112/59 80 93 02/08 1535 97 Room air 21 /08 1530 79 25 109/60 78 93 02/08 [...] I O ending at 0700: 02/08 0700 07/15 1900 Intake Total 500 720 Output Total 925 1285 Balance -425 -565 Intake, 0 Hemodialysis Intake, Oral 500 480 Intake, Oral 240 Supplement Output, Chest 25 45 Tube Drainage Output, Urine 900 1240 PATIENT WEIGHT: Weight (lb): 200Weight (oz): 13.46Weight (kg): 91.100 Physical ExamGeneral appearance: alert, awake, orientedHead/Eyes: atraumatic, EOMI, normal conjunctiva/sclera, normocephalic, PERRLAENT: moist mucosal membranesNeck: full range of motion, no bruit/NL carotids, no JVDCardiovascular: normal heart sounds, regular rate rhythmRespiratory: aerating well, clear to auscultation, symmetric expansion, no distressAbdomen: non-tender, normal bowel sounds, soft, no distention, no guarding, no reboundExtremities: moves all, no cyanosis, no edemaMusculoskeletal: normal inspectionNeuro/GIFT OFFICER: alert, oriented X 3, normal speech, no motor deficits, no sensory deficitsSkin: intact, normal color, no rashPsychiatry: normal affect ResultsFindings/Data:Laboratory Tests 07/16 07/16 0310 0309 Chemistry Sodium [...] (Auto) (14.0 - 32.0 %) 7.1 L Starke % (Auto) (4.8 - 9.0 %) 12.2 H Eos % (Auto) (0.3 - 3.7 %) 6.9 H Baso % (Auto) (0.0 - 2.0 %) 0.7 Neut # (Auto) (2.0 - 7.6 x10 3/uL) 7.58 Lymph # (Auto) (1.0 - 3.8 x10 3/uL) 0.77 L Starke # (Auto) (0.1 - 0.8 x10 3/uL) 1.32 H Eos # (Auto) (0.0 - 0.2 x10 3/uL) 0.75 H Baso # (Auto) (0.0 - 0.2 x10 3/uL) 0.08 Abs Immat Gran (auto) (0.00 - 0.03 x10 3/uL) 0.31 H Add Manual Diff NO Immature Gran % (0.0 - 2.0 %) 2.9 H Nucleated RBC % (0 - 0 %) 0.0 Nucleated RBCs # (Man) (0.0 - 0.1 x10 3/uL) 0.00 Radiology data:Recent Impressions:RADIOLOGY - XR CHEST 1 V 07/16 0500 Report Impression - Status: SIGNED Entered: 07/16/2022 0710 IMPRESSION: Removal of the left basilar chest tube. Otherwise, stable exam. Impression By: StevenSWTalat - Ranjan Sesay M.D.RADIOLOGY - XR CHEST 1 V 07/16 1055 Report Impression - Status: SIGNED Entered: 07/16/2022 1158 IMPRESSION: 1. Small left and stable small right layering pleural effusion. 2. Left chest tube present. No pneumothorax. 3. Stable bibasilar airspace opacities Impression By: [email or web address] - Som Enriquez M.D. Treatment Prophylaxis Treatment ProphylaxisDrain(s)/tube(s): Drain(s)/tube(s): chest Diagnosis, Assessment PlanConsultants: cardiology, cardiovascular surgery, nephrology Free Text DxA P NotesFree text DxA P notes:Assessment and plans:CAD (coronary artery disease) patient presented with NSTEMI and found to hve severe CAD. Cardiac cath shows: Left Main - Distal 70% LAD - Proximal 80% with another 60% and 70% lessions Cir - Proximal 80%,mid 80-90%, Distal 70% and OM 60% RCA - large dominant with proximal 40%, Mid 60%. Cardiology and CV surgeon consulted echo: ef 30-34%, mod hypokinesis of entire myocardium, grade 1 diastolic dysfunction Carotid Dopplers negative PFTs PT/OT s/p CABG X5 on 07/08 Patient on ASA, plavix, BB and Statin on amiodarone Beta-tomas as tolerated for low BP, Acute systolic heart failure Echocardiac with estimated LVEF of 30 to 34% with grade 1 diastolic dysfunction-s/p Lasix 20 mg twice daily 07/05 -on metoprolol 12.5 mg bid on hold now, BP low-no ACEI/ spironolactione for CLAUDETTE-Strict I's and O's, daily weights-Start GDMT prior to discharge CLAUDETTE (acute kidney injury) No prior Hx of renal disease. hx of BPH and treated with Fosamax w/o improvement nd continue to have difficulty urinating. On admission was found to be on acute renal filaure and had received HD twice prior to arrival here (thursday and thursday). Creatinine this am was 7.4, BUN 68 * Probably due to obstructive uropathy* waters already in place* Nephrology consuled for HD On daily hemodialysis as per nephrology Anemia:-Hemoglobin dropped to 6.5 s/p CABG 2 PRBC BT ordered 07/09 Monitor H H Leukocytosis:-Afebrile Monitor WBC count HTN (hypertension) patient on metoprolol 12.5 mg BID, will adjust as needed On labetalol/hydralazine as needed Dyslipidemia on Lipitor 40mg po daliy. BPH (benign prostatic hyperplasia) Started on Flomax at the previous hospital, will continue with it. Waters catheter in place, continue Waters catheter as per nephrology 07/05 Goiter Hx of Goiter and surgical resection. TSH 3.33, within normal limits. Patient is not on Thyroid medication. anemia of chronic kidney disease Hemoglobin 8.3, monitor Hypokalemia resolved UTI continue Rocephin for empiric treatment pending results of urine culture No growth for 48 hours DVT prophylaxis: Heparin 5000 units every 8 hoursDiet: Cardiac dietCODE STATUS: Full code Disposition: Status post CABG x5 on 07/09, hemodialysis as per nephrology. Worked with PT in his room, on 2 L oxygen via nasal cannula. PT/OT on board. Rehab consulted. Transfer to floor. Quality: Gen Med Crit Care VTE ProphylaxisVTE prophylaxis initiated: yes Current MedicationsCurrent medication review:I attest that the foregoing medication list in the medical record is true, accurate, and complete to the best of my knowledge. Advanced Care Plan 65 or OlderDiscussed with: patientDiscussion included: living will (none), power of school commissioner (none), code status (full code) at 2048 RPT #:[id number] OF REPORTPRProgress [id number]:47:[id number] Available for patient [id number]:49:21 [facility]L 2022-07-16 18:38:00 [id number]:38:00 [facility] ([facility])Critical Care Progress NoteREPORT#:[id number] REPORT STATUS: SignedDATE:07/16/22 TIME: 1838 PATIENT: SHERRI ARCE UNIT #: [id number]#: [id number] [address] [birth year] AGE: 81 SEX: M ATTEND: Sarbjit Mcarthur MDADM AUTHOR: Jana Mittal MD * ALL edits or amendments must be made on the electronic/computer document * SubjectiveChief complaint:CABGHPI:This is 81 years old male with medical history significant for HTN and dyslipidemia who [facility]06[facility]22 with chest pain and found to have a NSTEMI and also acute renal failure. He underwent cardiac cath and was found to have severe CAD including left main disease with EF of 30 to 35% and ischemic cardiomyopathy. Transfer here for CABG evaluation. CV surgery were consulted and the patient earlier today underwent CABG x 5 (MISTRY-LAD, SVG-Ladonna, SVG-OM1< SVG-OM3, SVG-PDA) and ALAA. His intraoperative course was without significant occurrence. The patient was brought to CVICU intubated and ventilated on milrinone drip, norepinephrine drip, epinephrine drip and vasopressin drip.His initial ABG showed metabolic acidosis and he received 2 A of sodium bicarb and 1 g of calcium.The patient started to wake up later in the evening but he looked weak, so he was reversed with neostigmine and glycopyrrolate. His motor strength improved significantly after that and his spontaneous breathing trial was good on the following ABG showed some metabolic acidosis. The patient will be extubated to a BiPAP as his CO2 was high on the ABG. Comments:Interval history- Patinets chest tube was clamped, repeat CXR did not show any pneumothorax with chest tube was removed.Patient underwent dialysis today.Awaiting SNF placement. Objective GeneralVS/I OLast Documented: Result Date Time Temp 36.7 07/17 [...] scale Measurement Method PATIENT WEIGHT: Weight (lb): 195Weight (oz): 12.33Weight (kg): 88.800 Medications:Active Meds + DC'd Last 24 HrsAmiodarone HCl (CORDARONE) 200 MG BID PO Cefazolin Sodium (KEFZOL OR ANCEF) 2 GM PREOP ONCALL IV (CKD) Albumin Human (ALBUMINAR-25%) 12.5 GM ASDIR PRN IV Sodium Chloride (SODIUM CHLORIDE) 10 ML ASDIR PRN IV Midodrine (PROAMATINE) 10 MG 0900,1300,1700 PO Sodium Chloride (SODIUM CHLORIDE) 20 ML ASDIR IV Sodium Bicarbonate (SODIUM BICARBONATE) 650 MG BID PO (DC) Ipratropium [place] (ATROVENT) 500 MCG RTQ2H PRN PRN INH Lactulose (LACTULOSE) 20 GM DAILY PRN PRN PO Cyanocobalamin (Vitamin B-12 500 mcg tab) 500 MCG DAILY PO Ferrous Sulfate (FERROUS SULFATE) 325 MG DAILY PO Dopamine HCl/Dextrose (DOPamine 400MG/D5W 250ML) 250 ML ASDIR IV Bisacodyl (DULCOLAX) 10 MG ONCE PRN RECTAL Atorvastatin Calcium (LIPITOR) 40 MG 2100 PO Clopidogrel Bisulfate (Plavix) 75 MG DAILY PO Polyethylene Glycol (MIRALAX) 17 GM DAILY PO Calcium Chloride (CALCIUM CHLORIDE) 1 GM ASDIR PRN IV Sodium Chloride (SODIUM CHLORIDE 0.9%) 100 MLCalcium Chloride (CALCIUM CHLORIDE) 2 GM ASDIR PRN IV Sodium Chloride (SODIUM CHLORIDE 0.9%) 100 MLMagnesium Sulfate (MAGNESIUM SULFATE 4GM/SWFI 100ML) 100 ML ASDIR PRN IV Magnesium Sulfate (MAGNESIUM SULFATE 2GM/SWFI 50ML) 50 ML ASDIR PRN IV Potassium Chloride (KCL 10MEQ/SWFI 50ML) 50 ML ASDIR PRN IV Sodium Chloride (SODIUM CHLORIDE 0.9%) 2,000 ML ASDIR PRN IV Sodium Phosphate (SODIUM PHOSPHATE) 25 MMOL ASDIR PRN IV Sodium Chloride (SODIUM CHLORIDE 0.9%) 250 MLSodium Phosphate (SODIUM PHOSPHATE) 20 MMOL ASDIR PRN IV Sodium Chloride (SODIUM CHLORIDE 0.9%) 250 MLSodium Phosphate (SODIUM PHOSPHATE) 15 MMOL ASDIR PRN IV Sodium Chloride (SODIUM CHLORIDE 0.9%) 250 MLPantoprazole (PROTONIX) 40 MG DAILY@0600 PO Aspirin (ASPIRIN) 81 MG DAILY PO Vasopressin (VASOSTRICT 20 Unit/NS 100ML) 100 ML ASDIR IV (CKD) Amiodarone HCl (CORDARONE) 200 MG TID PO (DC) Docusate Sodium (COLACE) 100 MG BID PO Sennosides (Senna Lax 8.6 MG TABLET) 17.2 MG BEDTIME PO Ipratropium [place] (ATROVENT) 500 MCG RTQ4H INH Acetaminophen (TYLENOL) 650 MG Q4H PRN PRN PO Acetaminophen (TYLENOL) 650 MG Q4H PRN PRN RECTAL Calcium Chloride (CALCIUM CHLORIDE) 1 GM ASDIR PRN IV Dextrose/Water (DEXTROSE 10% IN WATER) 125 ML ASDIR PRN IV (CKD) Dextrose/Water (DEXTROSE 10% IN WATER) 250 ML ASDIR PRN IV (CKD) Epinephrine (ADRENALIN CHLORIDE) 4 MG ASDIR IV Dextrose/Water (DEXTROSE 5% WATER) 246 MLGlucagon (GLUCAGON) 1 MG ASDIR PRN IM Magnesium Sulfate (MAGNESIUM SULFATE 4GM/SWFI 100ML) 100 ML ASDIR PRN IV Magnesium Sulfate (MAGNESIUM SULFATE 2GM/SWFI 50ML) 50 ML ASDIR PRN IV Magnesium Sulfate/Dextrose (MAGNESIUM SULFATE 1GM/D5W 100ML) 100 ML ASDIR PRN IV Nitroglycerin/Dextrose (NITROGLYCERIN 50,000MCG/D5W 250ML) 250 ML ASDIR IV Norepinephrine Bitartrate (NOREPINEPHRINE 8 MG/NS 250 ML) 250 ML TITRATE IV Ondansetron HCl (ZOFRAN) 4 MG Q6H PRN PRN IV Potassium Chloride (KCL 20MEQ/SWFI 100ML) 100 ML ASDIR PRN IV Sodium Bicarbonate (SODIUM BICARBONATE) 50 MEQ ASDIR PRN IV Albumin Human (ALBUMINAR-25%) 12.5 GM ASDIR PRN IV Heparin Sodium (Porcine) (HEPARIN SODIUM) 3,000 UNIT ASDIR PRN DIALYSIS Lidocaine HCl (LIDOCAINE HCL/PF) 0.5 ML ASDIR PRN I-DERMAL (CKD) Mannitol (Mannitol 20%) 12.5 GM ASDIR PRN IV Sodium Chloride (SODIUM CHLORIDE 0.9%) 2,000 ML ASDIR PRN IV Tamsulosin HCl (Flomax 0.4 mg) 0.4 MG BEDTIME PO ResultsFindings/data:Laboratory Tests 07/16 07/16 0310 0309 Chemistry Sodium [...] (Auto) (14.0 - 32.0 %) 7.1 L Starke % (Auto) (4.8 - 9.0 %) 12.2 H Eos % (Auto) (0.3 - 3.7 %) 6.9 H Baso % (Auto) (0.0 - 2.0 %) 0.7 Neut # (Auto) (2.0 - 7.6 x10 3/uL) 7.58 Lymph # (Auto) (1.0 - 3.8 x10 3/uL) 0.77 L Starke # (Auto) (0.1 - 0.8 x10 3/uL) 1.32 H Eos # (Auto) (0.0 - 0.2 x10 3/uL) 0.75 H Baso # (Auto) (0.0 - 0.2 x10 3/uL) 0.08 Abs Immat Gran (auto) (0.00 - 0.03 x10 3/uL) 0.31 H Add Manual Diff NO Immature Gran % (0.0 - 2.0 %) 2.9 H Nucleated RBC % (0 - 0 %) 0.0 Nucleated RBCs # (Man) (0.0 - 0.1 x10 3/uL) 0.00 Laboratory Tests 07/16/22 0310:[Embedded Image Not Available] 07/16/22 0309:[Embedded Image Not Available] Radiology dataRecent Impressions:RADIOLOGY - XR CHEST 1 V 07/16 0500 Report Impression - Status: SIGNED Entered: 07/16/2022 0710 IMPRESSION: Removal of the left basilar chest tube. Otherwise, stable exam. Impression By: [email or web address] - Ranjan Sesay M.D.RADIOLOGY - XR CHEST 1 V 07/16 1055 Report Impression - Status: SIGNED Entered: 07/16/2022 1158 IMPRESSION: 1. Small left and stable small right layering pleural effusion. 2. Left chest tube present. No pneumothorax. 3. Stable bibasilar airspace opacities Impression By: [email or web address] - Som Enriquez M.D. Free Text Obj NotesFree Text Obj Notes:General appearance: Elderly male in no acute distress, interactive and conversationalHEENT: atraumatic, normocephalic, moist mucosal membranesNeck: full range of motion, supple/no meningismusCardiovascular: S1-S2 regular rate and rhythmRespiratory: symmetric expansion, no acute respiratory distressAbdomen: soft, non-tender, no distention, no guardingGenitourinary: waters with clear urineExtremities: pedal pulses palpable, moves all, no cyanosis, mild LE edema, right>leftMusculoskeletal: normal inspection, no muscle spasmNeuro/GIFT OFFICER: alert and oriented x3, CNII-XII grossly intact, no motor deficitsSkin: dry, intact and clean surgery dressing Treatment Prophylaxis Treatment ProphylaxisDrain(s)/tube(s): Drain(s)/tube(s): chest Diagnosis, Assessment PlanProblem list/A P: 1. CLAUDETTE (acute kidney injury) 2. CAD (coronary artery disease) 3. Goiter 4. BPH (benign prostatic hyperplasia) 5. Dyslipidemia 6. HTN (hypertension) Free text A P:73-year-old male with Acute pulmonary insufficiency following thoracic surgeryStatus post CABG x 5 (MISTRY-LAD, SVG-Ladonna, SVG-OM1< SVG-OM3, SVG-PDA) and ALAAAcute blood loss anemiaHypotensionIschemic cardiomyopathy, EF 30 to 34%Multivessel CADAKI on hemodialysis Continue mechanical ventilation, vent settings reviewedTitrate FiO2 to keep saturation more than 90%.Spontaneous breathing trial as soon as possibleWean to extubateFollow ABGs and CXRsABG shows metabolic acidosis. Patient received 2 A of sodium bicarb and 1 g of calciumKeep off sedationJudicious pain controlMilrinone drip 0.25Epinephrine dripNorepinephrine dripVasopressin dripTitrate drips to keep MAP more than 65Wean milrinone off first per CV surgeryMinimize fluids per CV surgeryAspirin and PlavixAtorvastatinMetoprololFollow lactate levelMonitor chest tube outputHemodialysis per nephrologyMonitor urine output and kidney functionMonitor and replete electrolytesPerioperative antibioticsCardiac diet with bowel regimen once extubatedBG control with insulin gtt per protocolPT/OTVTE prophylaxis.Stress ulcer prophylaxis.Discussed with CV surgery, anesthesia and ICU teamCritical care time 85 minutes 2/1Appears neuro intact, multimodal pain control, minimize narcotic use, no CO2 narcosisExtubated successfully, sats well on NC, wean O2, monitor for hypercapnia, encourage I-S, obtain serial ABGs, CXR reviewedHD unstable, weaning vasopressors and inotrope, monitor HD parameters, low CVP, lactic acidosis with uptrending lactate, gentle volume resuscitationOliguric CLAUDETTE, plan for CRRT per renal, hyperkalemia treated, obtain serial labPO challenge, bowel regimen, serial abdominal exam, monitor LFTsLeukocytosis postop, likely reactive, trend WBC, s/p antibiotic course for UTI ,periop antibioticsHgb trending down, no evidence of active bleed, monitor CTs output, RBC given HDinstabilityBlood glucose control with insulin drip per protocolEncourage PT/OT and activity as toleratedDVT and GI prophylaxis with DAPT and PPI 2/2Appears neuro intact, multimodal pain control, minimize narcotic usesats well on NC, wean O2, encourage I-S, ABG and CXR reviewedHD fairly stable, on minimal vasopressor support, lactic acidosis cleared s/p resuscitationOliguric CLAUDETTE, tolerated CRRT, holding off per renal, monitor UOP and electrolytes closelyOral diet as tolerated, bowel regimen, monitor LFTsLeukocytosis postop, trend WBC, treated for UTI preopHgb responded to PRBC, no evidence of active bleed, minimal CTs outputBlood glucose control, transitioned insulin drip to SSIEncourage PT/OT and out of bed as toleratedDVT and GI prophylaxis with DAPT and PPI 2/3Remains neuro intact, pain appears well controlledSats well on NC, wean O2, encourage I-S, ABG and CXR reviewedHD unstable, remains on minimal vasopressor support, attempt to wean, start midodrineOliguric CLAUDETTE, off CRRT per renal, minimal UOP, started renal dose dopamine dripTolerating oral diet, continue bowel regimen, LFTs normalizedLeukocytosis postop, continue to trend WBC, treated for UTI preopHgb stable s/p PRBC, no evidence of active bleed, monitor pCT outputBlood glucose control with sliding scale insulinEncourage PT/OT and out of bed as tolerated, CM for dispo planDVT and GI prophylaxis with DAPT and PPI 2/4Remains neuro intact, pain appears well controlledSats well on NC, wean O2, encourage I-S, ABG and CXR reviewedHD unstable, weaning vasopressors, increase midodrine dose, remains in SRAKI, likely postrenal, improved UOP, HD today per renal, hyperkalemia treatedTolerating oral diet, has bowel movement and bowel regimen, LFTs normalizedLeukocytosis, WBC trending down, currently off antibiotics s/p treatment for UTIHgb remains stable s/p PRBC, no evidence of active bleed, minimal CT outputBlood glucose control with sliding scale insulinEncourage PT/OT and out of bed as tolerated, CM for dispo plan, IPR consultedDVT and GI prophylaxis with DAPT and PPI 2/5Remains neuro intact, pain appears well controlledSats well, wean O2, encourage I-S, ABG and CXR reviewed, has left PTXHD stable off vasopressors, increased midodrine doseAKI, likely postrenal, making urine, HD per renal, renal US with hydronephrosisTolerating oral diet, has bowel movement and bowel regimenLeukocytosis, WBC trending down, monitor off antibiotics s/p treatment for UTIHgb remains stable s/p PRBC, no evidence of active bleed, keep CT to suctionBlood glucose control with sliding scale insulinTolerating PT/OT, CM for dispo plan, IPR on boardDVT and GI prophylaxis with DAPT and PPI 2/6Neuro Intact. Pain well controlled.Is off oxygen. On room air saturating more than 94%. Imaging chest x-ray reviewed. Still has a persistent left pneumothorax. IR guided pigtail was placed today , CXR shows expansion of the lung Maintaining the blood pressure on midodrine 5 3 times daily.Making good urine. Monitor the potassium. As per renal we will see if he needsdialysis tomorrow then will need a tunneled catheter.White count remained stable. No antibiotics.And bowel movement. Continue bowel regimen.Urology evaluation pending.PT OT. Pending rehab placement when medically ready. 07/15Neurologically intact. Pain is well controlled.He is on room air.Chest x-ray reviewed. Very small pneumothorax/. Does have bilateral pulmonary infiltrates.Continue pigtail to suction.Patient making good urine but his BUN/creatinine is still worsening.We will have tunneled dialysis catheter today. Renal following.Will discontinue Waters and monitor for trial of void if fails then will need Waters replaced back. Continue Flomax. Urology following.We will increase the midodrine to 10 3 times daily.Continue PT and PPI.SCDs for DVT prophylaxis.Disposition is SNF. 07/16Neurologically intact pain well controlled.We will discharge to hemodialysis today.Chest x-ray and ABG personally reviewed. Repeat chest x-ray after clamping of the tube did not show any new pneumothorax. Chest tube was removed.Patient continues to remain on room air.No signs of infection.Continue with midodrine.Underwent hemodialysis today. Tolerated well.DAPT and PPI for GI prophylaxis.SCDs.[place]. Awaiting for dialysis bedDaughter was updated about this plan by me. Consultants: cardiology, cardiovascular surgery, nephrology Quality: Gen Med Crit Care VTE ProphylaxisVTE prophylaxis initiated: yes at 1245 RPT #:[id number] OF REPORTPRProgress [id number] Available for patient [id number] HCACL 2022-07-16 11:30:00 [id number]:00 [facility] ([facility])Cardiology Progress NoteREPORT#:[id number] REPORT STATUS: SignedDATE:07/16/22 TIME: 1130 PATIENT: SHERRI ARCE UNIT #: [id number]#: [id number] [address] AGE: 81 SEX: M ATTEND: Srinath Kaur MDA AUTHOR: Sonya Stacy AGACNP * ALL edits or amendments must be made on the electronic/computer document * SubjectivePatient reports:No: complaints. Objective GeneralVS/I O:24 hour I O ending at 0700: 07/16 0700 07/15 1900 Intake Total 500 720 Output Total 925 1285 Balance -425 -565 Intake, 0 Hemodialysis Intake, Oral 500 480 Intake, Oral 240 Supplement Output, Chest 25 45 Tube Drainage Output, Urine 900 1240 Vital Signs: Date Time Temp Pulse Resp B/P B/P Pulse O2 O2 Flow FiO2 Mean Ox Delivery Rate 07/16 1100 82 25 112/58 78 94 /08 1000 83 28 103/58 78 92 / 0915 82 26 94/52 71 94 / 0900 84 28 100/55 75 95 /08 0845 87 27 112/58 82 93 / 0831 90 27 101/50 71 91 / 0815 87 29 93/54 70 93 / 0800 36.7 88 25 101/54 69 95 Room air / 0800 88 25 101/54 74 95 / 0748 94 Room air 21 07/16 0746 93 24 122/59 82 65 / 0730 87 27 100/58 76 96 / 0715 86 35 110/56 78 94 / 0700 87 28 108/58 77 91 07/16 0645 88 23 92/54 67 91 02/08 [...] 80 24 116/60 81 97 02/07 1999 36.4 02/07 1999 80 30 96/51 70 [...] 02/07 1200 80 30 88/52 65 93 PATIENT WEIGHT: Weight (lb): 200Weight (oz): 13.46Weight (kg): 91.100 Medications:Active Meds + DC'd Last 24 HrsAmiodarone HCl (CORDARONE) 200 MG BID PO Cefazolin Sodium (KEFZOL OR ANCEF) 2 GM PREOP ONCALL IV (CKD) Albumin Human (ALBUMINAR-25%) 12.5 GM ASDIR PRN IV Sodium Chloride (SODIUM CHLORIDE) 10 ML ASDIR PRN IV Phenylephrine HCl (Phenylephrine PF 500 mg/5 mL Inj) 0 .STK-MED ONE .ROUTE (DC) Cefazolin Sodium (KEFZOL OR ANCEF) 0 .STK-MED ONE .ROUTE (DC) Propofol (DIPRIVAN 200MG/20ML INJECTION) 0 .STK-MED ONE IV (DC) Fentanyl Citrate (SUBLIMAZE) 0 .STK-MED ONE IV (DC) Dexamethasone Sodium Phosphate (DECADRON) 0 .STK-MED ONE .ROUTE (DC) Etomidate (AMIDATE) 0 .STK-MED ONE IV (DC) Lidocaine HCl (XYLOCAINE) 0 .STK-MED ONE .ROUTE (DC) Ondansetron HCl (ZOFRAN) 0 .STK-MED ONE .ROUTE (DC) Heparin Sodium (HEPARIN SODIUM) 0 .STK-MED ONE .ROUTE (DC) Midodrine (PROAMATINE) 10 MG 0900,1300,1700 PO Sodium Chloride (SODIUM CHLORIDE) 20 ML ASDIR IV Midodrine (PROAMATINE) 5 MG 0900,1300,1700 PO (DC) Sodium Bicarbonate (SODIUM BICARBONATE) 650 MG BID PO Ipratropium [place] (ATROVENT) 500 MCG RTQ2H PRN PRN INH Lactulose (LACTULOSE) 20 GM DAILY PRN PRN PO Cyanocobalamin (Vitamin B-12 500 mcg tab) 500 MCG DAILY PO Ferrous Sulfate (FERROUS SULFATE) 325 MG DAILY PO Dopamine HCl/Dextrose (DOPamine 400MG/D5W 250ML) 250 ML ASDIR IV Bisacodyl (DULCOLAX) 10 MG ONCE PRN RECTAL Atorvastatin Calcium (LIPITOR) 40 MG 2100 PO Clopidogrel Bisulfate (Plavix) 75 MG DAILY PO Polyethylene Glycol (MIRALAX) 17 GM DAILY PO Calcium Chloride (CALCIUM CHLORIDE) 1 GM ASDIR PRN IV Sodium Chloride (SODIUM CHLORIDE 0.9%) 100 MLCalcium Chloride (CALCIUM CHLORIDE) 2 GM ASDIR PRN IV Sodium Chloride (SODIUM CHLORIDE 0.9%) 100 MLMagnesium Sulfate (MAGNESIUM SULFATE 4GM/SWFI 100ML) 100 ML ASDIR PRN IV Magnesium Sulfate (MAGNESIUM SULFATE 2GM/SWFI 50ML) 50 ML ASDIR PRN IV Potassium Chloride (KCL 10MEQ/SWFI 50ML) 50 ML ASDIR PRN IV Sodium Chloride (SODIUM CHLORIDE 0.9%) 2,000 ML ASDIR PRN IV Sodium Phosphate (SODIUM PHOSPHATE) 25 MMOL ASDIR PRN IV Sodium Chloride (SODIUM CHLORIDE 0.9%) 250 MLSodium Phosphate (SODIUM PHOSPHATE) 20 MMOL ASDIR PRN IV Sodium Chloride (SODIUM CHLORIDE 0.9%) 250 MLSodium Phosphate (SODIUM PHOSPHATE) 15 MMOL ASDIR PRN IV Sodium Chloride (SODIUM CHLORIDE 0.9%) 250 MLPantoprazole (PROTONIX) 40 MG DAILY@0600 PO Aspirin (ASPIRIN) 81 MG DAILY PO Vasopressin (VASOSTRICT 20 Unit/NS 100ML) 100 ML ASDIR IV (CKD) Amiodarone HCl (CORDARONE) 200 MG TID PO (DC) Docusate Sodium (COLACE) 100 MG BID PO Sennosides (Senna Lax 8.6 MG TABLET) 17.2 MG BEDTIME PO Ipratropium [place] (ATROVENT) 500 MCG RTQ4H INH Acetaminophen (TYLENOL) 650 MG Q4H PRN PRN PO Acetaminophen (TYLENOL) 650 MG Q4H PRN PRN RECTAL Calcium Chloride (CALCIUM CHLORIDE) 1 GM ASDIR PRN IV Dextrose/Water (DEXTROSE 10% IN WATER) 125 ML ASDIR PRN IV (CKD) Dextrose/Water (DEXTROSE 10% IN WATER) 250 ML ASDIR PRN IV (CKD) Epinephrine (ADRENALIN CHLORIDE) 4 MG ASDIR IV Dextrose/Water (DEXTROSE 5% WATER) 246 MLGlucagon (GLUCAGON) 1 MG ASDIR PRN IM Magnesium Sulfate (MAGNESIUM SULFATE 4GM/SWFI 100ML) 100 ML ASDIR PRN IV Magnesium Sulfate (MAGNESIUM SULFATE 2GM/SWFI 50ML) 50 ML ASDIR PRN IV Magnesium Sulfate/Dextrose (MAGNESIUM SULFATE 1GM/D5W 100ML) 100 ML ASDIR PRN IV Nitroglycerin/Dextrose (NITROGLYCERIN 50,000MCG/D5W 250ML) 250 ML ASDIR IV Norepinephrine Bitartrate (NOREPINEPHRINE 8 MG/NS 250 ML) 250 ML TITRATE IV Ondansetron HCl (ZOFRAN) 4 MG Q6H PRN PRN IV Potassium Chloride (KCL 20MEQ/SWFI 100ML) 100 ML ASDIR PRN IV Sodium Bicarbonate (SODIUM BICARBONATE) 50 MEQ ASDIR PRN IV Albumin Human (ALBUMINAR-25%) 12.5 GM ASDIR PRN IV Heparin Sodium (Porcine) (HEPARIN SODIUM) 3,000 UNIT ASDIR PRN DIALYSIS Lidocaine HCl (LIDOCAINE HCL/PF) 0.5 ML ASDIR PRN I-DERMAL (CKD) Mannitol (Mannitol 20%) 12.5 GM ASDIR PRN IV Sodium Chloride (SODIUM CHLORIDE 0.9%) 2,000 ML ASDIR PRN IV Tamsulosin HCl (Flomax 0.4 mg) 0.4 MG BEDTIME PO Status post:07/08/22 CABG x 5 (MISTRY-LAD, SVG-Ladonna, SVG-OM1< SVG-OM3, SVG-PDA) ALAA Physical ExamGeneral appearance: alert, awakeHead/Eyes: atraumaticENT: moist mucosal membranesNeck: no JVDCardiovascular: CV assessment: pedal edema, regular rate and rhythm, no murmurRespiratory: decreased breath sounds, no distressAbdomen: soft, non-tender, normal bowel sounds, no distention, no guardingUpper extremity: UE assessment: normal temperature, no edemaLower extremity: LE assessment: edema (2 to 3+ pitting edema), normal temperature, no edemaMusculoskeletal: normal inspectionNeuro/GIFT OFFICER: alert, oriented X 3, normal speechSkin: dryPsychiatry: normal affect ResultsFindings/Data:Laboratory Tests 07/16 07/16 07/15 07/15 0310 0309 [...] (Auto) (14.0 - 32.0 %) 7.1 L Starke % (Auto) (4.8 - 9.0 %) 12.2 H Eos % (Auto) (0.3 - 3.7 %) 6.9 H Baso % (Auto) (0.0 - 2.0 %) 0.7 Neut # (Auto) (2.0 - 7.6 x10 3/uL) 7.58 Lymph # (Auto) (1.0 - 3.8 x10 3/uL) 0.77 L Starke # (Auto) (0.1 - 0.8 x10 3/uL) 1.32 H Eos # (Auto) (0.0 - 0.2 x10 3/uL) 0.75 H Baso # (Auto) (0.0 - 0.2 x10 3/uL) 0.08 Abs Immat Gran (auto) (0.00 - 0.03 x10 3/uL) 0.31 H Add Manual Diff NO Immature Gran % (0.0 - 2.0 %) 2.9 H Nucleated RBC % (0 - 0 %) 0.0 Nucleated RBCs # (Man) (0.0 - 0.1 x10 3/uL) 0.00 Laboratory Tests 07/16 07/15 0309 1710 Chemistry Magnesium (1.80 - 2.40 mg/dL) 2.10 2.39 Radiology data:Recent Impressions:RADIOLOGY - XR CHEST 1 V 07/15 1700 Report Impression - Status: SIGNED Entered: 07/15/2022 1841 IMPRESSION: Placement of right internal jugular central line with tip in the SVC. Impression By: Kourtney Boo M.D.RADIOLOGY - XR CHEST 1 V 07/16 0500 Report Impression - Status: SIGNED Entered: 07/16/2022 0710 IMPRESSION: Removal of the left basilar chest tube. Otherwise, stable exam. Impression By: StevenSWTalat - Ranjan Sesay M.D. Telemetry Interpretation:sinus rhythm Diagnosis, Assessment PlanProblem List/A P: 1. HTN (hypertension) 2. CLAUDETTE (acute kidney injury) 3. CAD (coronary artery disease) 4. Dyslipidemia 5. BPH (benign prostatic hyperplasia) Plan discussed with: patient, nurse Free Text DxA P NotesFree Text DxA P Notes:Mr. Arce is a pleasant 81 y/o M w/ PMHx: HTN, HLD presented to [facility] on 06/28/22 for chest pain and sob. He was diagnosed NSTEMI. C showed multivessel CAD. Transferred to [facility] for CABG. 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 urology consulted for bladded outlet obstruction and hydronephrosis, started on Flomax worsening creatinine, better today - s/p TDC placement, HD per nephro- HTN. hypotension post-op off Pressors. Midodrine 10 mg po tid. - HLD. On statins. - Anemia. monitor at 1333 at 1057 RPT #:[id number] OF REPORTPRProgress [id number] Available for patient [id number] HCACL 2022-07-16 10:51:00 [id number]:[id number] [facility] ([facility])Cardiothoracic Surgery ProgREPORT#:[id number] REPORT STATUS: SignedDATE:07/16/22 TIME: 1051 PATIENT: SHERRI ARCE UNIT #: [id number]#: [id number] [address] [birth year] AGE: 81 SEX: M ATTEND: Srinath Kaur [facility] AUTHOR: Gianna Hoover * ALL edits or amendments must be made on the electronic/computer document * GeneralPost-op: day 8Status post:07/08/22 CABG x 5 (MISTRY-LAD, SVG-Ladonna, SVG-OM1< SVG-OM3, SVG-PDA) ALEXIS TATUM (RGSV) SubjectiveChief complaint:s/p CABG no complaints Review of SystemsConstitutional:Denies: chills, fever, malaise. Allergy/Immun:Denies: allergic reaction. Respiratory:Denies: SOB. Cardiovascular:Denies: chest pain, palpitations. GI:Denies: abdominal pain, nausea, vomiting. :Denies: dysuria, hematuria. Heme:Denies: bleeding. Neuro:Denies: dizziness, headache, vision change. All systems rev neg: except as marked Objective GeneralVS/I OLast Documented: Result Date Time Pulse Ox 95 [...] Urine 900 1240 PATIENT WEIGHT: Weight (lb): 200Weight (oz): 13.46Weight (kg): 91.100 Dietitian Nutrition assessmentThe data set between the solid lines has been imported from the dietitian's assessment. BMI Calculated: 27.2Nutrition related diagnosis: Nutrition diagnosis details: Nutrition problem: Increased nutrient needsNutrition etiology: Chronic diseaseNutrition signs and symptoms: ESTIMATED NEEDS S/P CABGNutrition prescription: 1. RECOMMEND CONTIUE CARDIAC DIET, MONITOR LABS WITH [facility] DIALYSIS. 2. CONTINUE NEPRO BID. 3. DIET EDUCATION PRIOR TO DISCHARGE. 4. MONITOR PO, WT, LABS, BM.Dietitian name: Trang Rodriguez DIETAssessment completed: 07/10/22 Physical ExamGeneral appearance: alert, awake, orientedWound/incision: Location:sternal Site condition: edges approximated, incision intactHEENT: anicteric, mucosal membranes moistNeck: supple/no meningismusCardiovascular: normal heart sounds, regular rate rhythmRespiratory: aerating well, symmetric expansion, no distressAbdomen: soft, non-tender, no distentionGenitourinary: no foleyExtremities: moves allNeuro/GIFT OFFICER: alert, oriented X 3, normal speech, no motor deficitsPsychiatry: normal affect, normal mood Current MedicationsMedications:Active Meds + DC'd Last 24 HrsAmiodarone HCl (CORDARONE) 200 MG BID PO Cefazolin Sodium (KEFZOL OR ANCEF) 2 GM PREOP ONCALL IV (CKD) Albumin Human (ALBUMINAR-25%) 12.5 GM ASDIR PRN IV Sodium Chloride (SODIUM CHLORIDE) 10 ML ASDIR PRN IV Phenylephrine HCl (Phenylephrine PF 500 mg/5 mL Inj) 0 .STK-MED ONE .ROUTE (DC) Cefazolin Sodium (KEFZOL OR ANCEF) 0 .STK-MED ONE .ROUTE (DC) Propofol (DIPRIVAN 200MG/20ML INJECTION) 0 .STK-MED ONE IV (DC) Fentanyl Citrate (SUBLIMAZE) 0 .STK-MED ONE IV (DC) Dexamethasone Sodium Phosphate (DECADRON) 0 .STK-MED ONE .ROUTE (DC) Etomidate (AMIDATE) 0 .STK-MED ONE IV (DC) Lidocaine HCl (XYLOCAINE) 0 .STK-MED ONE .ROUTE (DC) Ondansetron HCl (ZOFRAN) 0 .STK-MED ONE .ROUTE (DC) Heparin Sodium (HEPARIN SODIUM) 0 .STK-MED ONE .ROUTE (DC) Midodrine (PROAMATINE) 10 MG 0900,1300,1700 PO Dexamethasone Sodium Phosphate (DECADRON) 0 .STK-MED ONE .ROUTE (DC) Fentanyl Citrate (SUBLIMAZE) 0 .STK-MED ONE .ROUTE (DC) Heparin Sodium (HEPARIN SODIUM) 0 .STK-MED ONE .ROUTE (DC) Lidocaine HCl (XYLOCAINE) 0 .STK-MED ONE .ROUTE (DC) Ondansetron HCl (ZOFRAN) 0 .STK-MED ONE .ROUTE (DC) Propofol (DIPRIVAN 200MG/20ML INJECTION) 20 ML .STK-MED ONE IV (DC) Sodium Chloride (SODIUM CHLORIDE) 20 ML ASDIR IV Midodrine (PROAMATINE) 5 MG 0900,1300,1700 PO (DC) Sodium Bicarbonate (SODIUM BICARBONATE) 650 MG BID PO Ipratropium [place] (ATROVENT) 500 MCG RTQ2H PRN PRN INH Lactulose (LACTULOSE) 20 GM DAILY PRN PRN PO Cyanocobalamin (Vitamin B-12 500 mcg tab) 500 MCG DAILY PO Ferrous Sulfate (FERROUS SULFATE) 325 MG DAILY PO Dopamine HCl/Dextrose (DOPamine 400MG/D5W 250ML) 250 ML ASDIR IV Bisacodyl (DULCOLAX) 10 MG ONCE PRN RECTAL Atorvastatin Calcium (LIPITOR) 40 MG 2100 PO Clopidogrel Bisulfate (Plavix) 75 MG DAILY PO Polyethylene Glycol (MIRALAX) 17 GM DAILY PO Calcium Chloride (CALCIUM CHLORIDE) 1 GM ASDIR PRN IV Sodium Chloride (SODIUM CHLORIDE 0.9%) 100 MLCalcium Chloride (CALCIUM CHLORIDE) 2 GM ASDIR PRN IV Sodium Chloride (SODIUM CHLORIDE 0.9%) 100 MLMagnesium Sulfate (MAGNESIUM SULFATE 4GM/SWFI 100ML) 100 ML ASDIR PRN IV Magnesium Sulfate (MAGNESIUM SULFATE 2GM/SWFI 50ML) 50 ML ASDIR PRN IV Potassium Chloride (KCL 10MEQ/SWFI 50ML) 50 ML ASDIR PRN IV Sodium Chloride (SODIUM CHLORIDE 0.9%) 2,000 ML ASDIR PRN IV Sodium Phosphate (SODIUM PHOSPHATE) 25 MMOL ASDIR PRN IV Sodium Chloride (SODIUM CHLORIDE 0.9%) 250 MLSodium Phosphate (SODIUM PHOSPHATE) 20 MMOL ASDIR PRN IV Sodium Chloride (SODIUM CHLORIDE 0.9%) 250 MLSodium Phosphate (SODIUM PHOSPHATE) 15 MMOL ASDIR PRN IV Sodium Chloride (SODIUM CHLORIDE 0.9%) 250 MLPantoprazole (PROTONIX) 40 MG DAILY@0600 PO Aspirin (ASPIRIN) 81 MG DAILY PO Vasopressin (VASOSTRICT 20 Unit/NS 100ML) 100 ML ASDIR IV (CKD) Amiodarone HCl (CORDARONE) 200 MG TID PO (DC) Docusate Sodium (COLACE) 100 MG BID PO Sennosides (Senna Lax 8.6 MG TABLET) 17.2 MG BEDTIME PO Ipratropium [place] (ATROVENT) 500 MCG RTQ4H INH Acetaminophen (TYLENOL) 650 MG Q4H PRN PRN PO Acetaminophen (TYLENOL) 650 MG Q4H PRN PRN RECTAL Calcium Chloride (CALCIUM CHLORIDE) 1 GM ASDIR PRN IV Dextrose/Water (DEXTROSE 10% IN WATER) 125 ML ASDIR PRN IV (CKD) Dextrose/Water (DEXTROSE 10% IN WATER) 250 ML ASDIR PRN IV (CKD) Epinephrine (ADRENALIN CHLORIDE) 4 MG ASDIR IV Dextrose/Water (DEXTROSE 5% WATER) 246 MLGlucagon (GLUCAGON) 1 MG ASDIR PRN IM Magnesium Sulfate (MAGNESIUM SULFATE 4GM/SWFI 100ML) 100 ML ASDIR PRN IV Magnesium Sulfate (MAGNESIUM SULFATE 2GM/SWFI 50ML) 50 ML ASDIR PRN IV Magnesium Sulfate/Dextrose (MAGNESIUM SULFATE 1GM/D5W 100ML) 100 ML ASDIR PRN IV Nitroglycerin/Dextrose (NITROGLYCERIN 50,000MCG/D5W 250ML) 250 ML ASDIR IV Norepinephrine Bitartrate (NOREPINEPHRINE 8 MG/NS 250 ML) 250 ML TITRATE IV Ondansetron HCl (ZOFRAN) 4 MG Q6H PRN PRN IV Potassium Chloride (KCL 20MEQ/SWFI 100ML) 100 ML ASDIR PRN IV Sodium Bicarbonate (SODIUM BICARBONATE) 50 MEQ ASDIR PRN IV Albumin Human (ALBUMINAR-25%) 12.5 GM ASDIR PRN IV Heparin Sodium (Porcine) (HEPARIN SODIUM) 3,000 UNIT ASDIR PRN DIALYSIS Lidocaine HCl (LIDOCAINE HCL/PF) 0.5 ML ASDIR PRN I-DERMAL (CKD) Mannitol (Mannitol 20%) 12.5 GM ASDIR PRN IV Sodium Chloride (SODIUM CHLORIDE 0.9%) 2,000 ML ASDIR PRN IV Tamsulosin HCl (Flomax 0.4 mg) 0.4 MG BEDTIME PO ResultsFindings/Data:Laboratory Tests 07/16 07/16 07/15 07/15 0310 0309 [...] (Auto) (14.0 - 32.0 %) 7.1 L Starke % (Auto) (4.8 - 9.0 %) 12.2 H Eos % (Auto) (0.3 - 3.7 %) 6.9 H Baso % (Auto) (0.0 - 2.0 %) 0.7 Neut # (Auto) (2.0 - 7.6 x10 3/uL) 7.58 Lymph # (Auto) (1.0 - 3.8 x10 3/uL) 0.77 L Starke # (Auto) (0.1 - 0.8 x10 3/uL) 1.32 H Eos # (Auto) (0.0 - 0.2 x10 3/uL) 0.75 H Baso # (Auto) (0.0 - 0.2 x10 3/uL) 0.08 Abs Immat Gran (auto) (0.00 - 0.03 x10 3/uL) 0.31 H Add Manual Diff NO Immature Gran % (0.0 - 2.0 %) 2.9 H Nucleated RBC % (0 - 0 %) 0.0 Nucleated RBCs # (Man) (0.0 - 0.1 x10 3/uL) 0.00 Radiology data:Recent Impressions:RADIOLOGY - XR CHEST 1 V 07/15 1700 Report Impression - Status: SIGNED Entered: 07/15/2022 1841 IMPRESSION: Placement of right internal jugular central line with tip in the SVC. Impression By: Kourtney Boo M.D.RADIOLOGY - XR CHEST 1 V 07/16 0500 Report Impression - Status: SIGNED Entered: 07/16/2022 0710 IMPRESSION: Removal of the left basilar chest tube. Otherwise, stable exam. Impression By: StevenSWTalat Sesay M.D. Results: labs reviewed, vital signs stable, rythm personally rev'd, x-ray personally reviewed, current med profile rev'd Treatment Prophylaxis Treatment ProphylaxisDrain(s)/tube(s): Drain(s)/tube(s): chest Quality: Trauma Gen Surg VTE Prophylaxis - GeneralVTE prophylaxis initiated: yes Diagnosis, Assessment PlanHospital course to date:This is a 81-year-old gentleman who presented to an outside hospital with complaints of chest pains while walking at his home on Thursday. He denies any previous history of coronary artery disease or other [place]. He was seen and evaluated at [facility]. He was found to have a urinary tract infection with urinary retention and acute kidney. He was started on dialysis via a left femoral temporary catheter. He underwent dialysis on Thursday, Thursday. Renal has been consultedDuring his work-up at outside hospital he underwent Left heart catheterization showing severe Left Main 70%. LAD: Proximal diffuse 80% stenosis and then diffuse 60% in the midsegment and on the distal segment, there is focal 70% stenosis. Diagonal branches with luminal irregularities. Left circumflex, codominant circulation with proximal 80%, mid 80 to 90% and then in the OM, there is proximal 60%, distal left circumflex has a 70% stenosis. RCA large and dominant with proximal 40% stenosis, mid 60% stenosis and then diffuse 50% stenosis all the way distally and the PLV and the PDA with luminal irregularities. CV surgery consulted for evaluation for coronary bypass graft. CAROTIDS- No carotid stenosis CT chest complete IMPRESSION: Small bilateral pleural effusions with bibasilar atelectasis. Echo:1. Left ventricle: The cavity size is at the upper limits of normal. Wall thickness is mildly increased. Systolic function is severely reduced. The estimated ejection fraction is 30-34%. Moderate hypokinesis of the entire myocardium. Doppler parameters are consistent with abnormal left ventricular relaxation (grade 1 diastolic dysfunction).2. Pericardium, extracardiac: A small pericardial effusion is identified along the left ventricular free wall, along the right ventricular free wall, and along the right atrial free wall. Assessment/Plan1) CAD Mutlivessel Will obtain echo,carotids. 2) CLAUDETTE Started dialysis on Creatine 7.3 Renal consulted. 3) BPH- Urinary retention. Waters in place Workup for CABG underway. Will get functional assessment with PT. PFT pending Carotid dopplers- No disease Echo PendingDialyiss per Renal. Baseline Cr unknown. 07/04 07/04 Doing well today, alert, up in the chair. Denies chest painEchocardiogram showed LVEF 30 to 34%, mild MR, trivial TRCT chest images reviewedEncourage I-S and mobilizationCreatinine 5.5 from 7.3, good urine output. Renal US showed bilateral severe hydronephrosis. Plan for HD today and tomorrow Will tentatively schedule patient for surgery on Thursday.Patient seen and plan reviewed with Dr Schwarz 07/05 Remains in a stable condition, denies chest pain BUN 53, creatinine 5.4. Plan for hemodialysis today and tomorrow for clearanceHe is also on Lasix 20 mg IV twice daily, urine output 1.1 L overnightWe will calculate risk of surgery with STS scoreEncourage I-S and mobilizationWill tentatively schedule patient for surgery on Thursday.Pt seen and plan reviewed with Dr Schwarz 07/06 BUN 36, creatinine 4.4. Plan for hemodialysis todayAwaiting CABG tomorrowSurgery, risks involved, STS score, benefits, complications and alternatives were explained to the patient. He acknowledged understanding and is willing to proceedN.p.o. after midnightPatient seen and plan reviewed with Dr. Schwarz 07/09/22POD 1CABG x 5 (MISTRY-LAD, SVG-Ladonna, SVG-OM1< SVG-OM3, SVG-PDA), ALAA, EVH (RGSV)Patient hemodynamically unstable, on epi at 4, and vaso .04, decreased uop overnight- 150ccStarted patient on CRRT 2k/3.5Wean epi as tolerated, Cardiac incex 2.8-3labs and chest x-ray reviewed, electrolytes stable, hgb 6.5- transfuse 2 units PRBCOn 4l nasal cannula- encourage incentive spirometer and deep breathingKeep both chest tubes and monitor outputsGlycemic control on insulin dripCardiac dietBowel regimen protocolPain managementSCDs for DVT and PPI for GI prophylaxisPT/OTMonitor patient closely in CVICUPlan of care discussed with Dr. Schwarz 07/10/22PO 2Patient alert, awake, and oriented, no distres notedlabs and CXR reviewed stableBreathing comfortably on 3l nasal cannula- wean as tolerated to melissa O2 sats > 92%Encourage I-S use and deep breathingOn CRRT- able to remove 2.9L overnight- nephrology followingCardiac index 3.1- wean off epi dripKeep chest tubes for now and monitor outputsTransition to sliding scale insulin- cardiac dietTry to get patient out of bed to chair today- ambulate with PT/OTSCDs for DVT prophylaxisKeep patient in CVICU for close monitoring 07/11/22PO 3Patient in stable condition, overnight events noted- decreased urine output 35 ml last night-started on dopamine gtt for renal perfusionCardiac index 3.5- epi currently at 2- will discontinue today, vasopressin at 0.02, added low dose midodrine 2.5 mg TID, repeat echocardiogram.Renal Following- trial LasixPatient has Left femoral temp dialysis cath, Will need tunneled dialysis IJ cathplaced if need dialysis. On 5l nasal cannula- wean off as tolerated, encourage incentive spirometer and deep breathingKeep left pleural chest tube and monitor output- > 200 cc Tolerating diet, bowel regimen protocolPT/OT- patient out of bed to chair today- encourage ambulationDVT prophylaxis with SCDsMonitor patient closely in CVICUPlan discussed with multidisciplinary teamPlan discussed with Dr Schwarz/ Dr Rodríguez 07/12/22POD 5,Patient resting comfortable. Patient with hx of urinary retention- After standing today- voided 1.4 L. Needs Urology consult for retention K 5.4- HD in progress. Dr Plaza following. CT output 20- DC today. Pacers remain in place. Patient has Left femoral temp dialysis cath, Re-evaluate on Thursday if fpc dialysis needed. Card: Remains in sinus rhythm. Respir: on 7 L NC O2 95%Dispo: Rehab consultedPatient seen and exmained by Dr Rodríguez. Plan discussed with Team 07/13/22 5Patient with no new complaints. Recieved HD yesterday.Requiring less oxygen, now on 3l nasal cannula- continue to wean offCXR reviewed left apical pneumothorax 4cm/30%, Chest tube drained 140 overnight,placed back on suction to clear pneumo, CT drianed 200cc this AM. on suction. Labs reviewed- stable, decreased WBC, hgb stable, CR 3.9Eating welll, +BMUO- 550CC, BP improved on midodrine. Continue PT/OT, ambulation and incentive spirometer useRehab folowing Monitor in ICU todayDisucssed with Dr Schwarz- DC femoral line and Central line today. DC art line. Will re-eval need for dialysis cath Thursday. Consider tunnelled cath if need.Patient seen and examined by Dr Rodríguez. Plan discussed with Care team. 07/14PO 6Patient in stable condition, no distress notedRemains on room air, O2 sats > 92%, encourage I-S use and deep breathingCXR shows moderate left apical pneumothorax unchangedCT remained on suction, no airleak noConsult IR for pigtail chest tube placement this morningCardiac/renal dietLabs reviewed- K 5.1- repeat labs K 4.8Nephrology followingContinue therapy with PT/OTFollow up with urology for waters catheter- Dr Harris consulted.Monitor in CVICUPlan of care discussed with Dr Schwarz and multidisciplinary team 07/15/22PO 7Patient alert, awake, and oriented, no distress, no complaints at this timeBreathing comfortable on room airCXR shows resolved pneumothoraxLP and pigtail chest tube- no air leak noted, minimal output from LP 40 overnightLabs reviewed, K 5.2- corrected, follow up with nephrology to discuss need for dialysisTrend labs this afternoonBowel regimen, +gasFoley catheter discontinued per urology- voiding trial this AMAmbulation and incentive spirometer use encouragedDVT prophylaxis with SCDsKeep in ICU DISP: SNF- Case management Discussed plan of care with multidisciplinary team and Dr. Schwarz 3POD 8Patient doing well, alert, awake, and orientedO2 sats 93% on room air, encourage I-SCXR stable- no pneumo notedLeft pigtail chest tube - no air leak, clamped this morning, repeat CXRPlacement of tunneled dialysis catheter (BioFlo DuraMax 28 cm) yesterdayHD treatment done yesterday evening, plan for HD treatment today per nephrologyPatient failed voiding trial, waters catheter replaced- follow up with urologyEating wellContinue PT/OT- ambulationTransfer to CV 1 intermediate care unitDischarge planning for SNF- CM following and to set up dialysis chairPatient seen with Dr. Schwarz and discussed plan of care with multidisciplinary team. Consultants: cardiology, cardiovascular surgery, nephrology at 1430 at 1945 RPT #:[id number] OF REPORTPRProgress [id number]:[id number] Available for patient [id number]:31:19 HCACL 2022-07-16 09:02:00 [id number]:02:00 [facility] ([facility])Rehab Progress NoteREPORT#:[id number] REPORT STATUS: SignedDATE:07/16/22 TIME: 901 PATIENT: SHERRI ARCE UNIT #: [id number]#: [id number] [address] [birth year] AGE: 81 SEX: M ATTEND: Sarbjit Mcarthur [facility] AUTHOR: Florencia Washburn NP * ALL edits or amendments must be made on the electronic/computer document * SubjectiveChief complaint:Rehab follow-upOOB in chairDenies pain or sobtill with CTPleasantFeels ok Denies NAIK/N/V/D/CP14 systems reviewed and neg. except that above. Objective GeneralVS:Vital Signs: Date Time Temp Pulse Resp B/P B/P Pulse O2 O2 Flow FiO2 Mean Ox Delivery Rate / 1139 [...] 97/56 73 96 PATIENT WEIGHT: Weight (lb): 200Weight (oz): 13.46Weight (kg): 91.100 Medications:Active Meds + DC'd Last 24 HrsAmiodarone HCl (CORDARONE) 200 MG BID PO Cefazolin Sodium (KEFZOL OR ANCEF) 2 GM PREOP ONCALL IV (CKD) Albumin Human (ALBUMINAR-25%) 12.5 GM ASDIR PRN IV Sodium Chloride (SODIUM CHLORIDE) 10 ML ASDIR PRN IV Phenylephrine HCl (Phenylephrine PF 500 mg/5 mL Inj) 0 .STK-MED ONE .ROUTE (DC) Cefazolin Sodium (KEFZOL OR ANCEF) 0 .STK-MED ONE .ROUTE (DC) Propofol (DIPRIVAN 200MG/20ML INJECTION) 0 .STK-MED ONE IV (DC) Fentanyl Citrate (SUBLIMAZE) 0 .STK-MED ONE IV (DC) Dexamethasone Sodium Phosphate (DECADRON) 0 .STK-MED ONE .ROUTE (DC) Etomidate (AMIDATE) 0 .STK-MED ONE IV (DC) Lidocaine HCl (XYLOCAINE) 0 .STK-MED ONE .ROUTE (DC) Ondansetron HCl (ZOFRAN) 0 .STK-MED ONE .ROUTE (DC) Heparin Sodium (HEPARIN SODIUM) 0 .STK-MED ONE .ROUTE (DC) Midodrine (PROAMATINE) 10 MG 0900,1300,1700 PO Sodium Chloride (SODIUM CHLORIDE) 20 ML ASDIR IV Sodium Bicarbonate (SODIUM BICARBONATE) 650 MG BID PO (DC) Ipratropium [place] (ATROVENT) 500 MCG RTQ2H PRN PRN INH Lactulose (LACTULOSE) 20 GM DAILY PRN PRN PO Cyanocobalamin (Vitamin B-12 500 mcg tab) 500 MCG DAILY PO Ferrous Sulfate (FERROUS SULFATE) 325 MG DAILY PO Dopamine HCl/Dextrose (DOPamine 400MG/D5W 250ML) 250 ML ASDIR IV Bisacodyl (DULCOLAX) 10 MG ONCE PRN RECTAL Atorvastatin Calcium (LIPITOR) 40 MG 2100 PO Clopidogrel Bisulfate (Plavix) 75 MG DAILY PO Polyethylene Glycol (MIRALAX) 17 GM DAILY PO Calcium Chloride (CALCIUM CHLORIDE) 1 GM ASDIR PRN IV Sodium Chloride (SODIUM CHLORIDE 0.9%) 100 MLCalcium Chloride (CALCIUM CHLORIDE) 2 GM ASDIR PRN IV Sodium Chloride (SODIUM CHLORIDE 0.9%) 100 MLMagnesium Sulfate (MAGNESIUM SULFATE 4GM/SWFI 100ML) 100 ML ASDIR PRN IV Magnesium Sulfate (MAGNESIUM SULFATE 2GM/SWFI 50ML) 50 ML ASDIR PRN IV Potassium Chloride (KCL 10MEQ/SWFI 50ML) 50 ML ASDIR PRN IV Sodium Chloride (SODIUM CHLORIDE 0.9%) 2,000 ML ASDIR PRN IV Sodium Phosphate (SODIUM PHOSPHATE) 25 MMOL ASDIR PRN IV Sodium Chloride (SODIUM CHLORIDE 0.9%) 250 MLSodium Phosphate (SODIUM PHOSPHATE) 20 MMOL ASDIR PRN IV Sodium Chloride (SODIUM CHLORIDE 0.9%) 250 MLSodium Phosphate (SODIUM PHOSPHATE) 15 MMOL ASDIR PRN IV Sodium Chloride (SODIUM CHLORIDE 0.9%) 250 MLPantoprazole (PROTONIX) 40 MG DAILY@0600 PO Aspirin (ASPIRIN) 81 MG DAILY PO Vasopressin (VASOSTRICT 20 Unit/NS 100ML) 100 ML ASDIR IV (CKD) Amiodarone HCl (CORDARONE) 200 MG TID PO (DC) Docusate Sodium (COLACE) 100 MG BID PO Sennosides (Senna Lax 8.6 MG TABLET) 17.2 MG BEDTIME PO Ipratropium [place] (ATROVENT) 500 MCG RTQ4H INH Acetaminophen (TYLENOL) 650 MG Q4H PRN PRN PO Acetaminophen (TYLENOL) 650 MG Q4H PRN PRN RECTAL Calcium Chloride (CALCIUM CHLORIDE) 1 GM ASDIR PRN IV Dextrose/Water (DEXTROSE 10% IN WATER) 125 ML ASDIR PRN IV (CKD) Dextrose/Water (DEXTROSE 10% IN WATER) 250 ML ASDIR PRN IV (CKD) Epinephrine (ADRENALIN CHLORIDE) 4 MG ASDIR IV Dextrose/Water (DEXTROSE 5% WATER) 246 MLGlucagon (GLUCAGON) 1 MG ASDIR PRN IM Magnesium Sulfate (MAGNESIUM SULFATE 4GM/SWFI 100ML) 100 ML ASDIR PRN IV Magnesium Sulfate (MAGNESIUM SULFATE 2GM/SWFI 50ML) 50 ML ASDIR PRN IV Magnesium Sulfate/Dextrose (MAGNESIUM SULFATE 1GM/D5W 100ML) 100 ML ASDIR PRN IV Nitroglycerin/Dextrose (NITROGLYCERIN 50,000MCG/D5W 250ML) 250 ML ASDIR IV Norepinephrine Bitartrate (NOREPINEPHRINE 8 MG/NS 250 ML) 250 ML TITRATE IV Ondansetron HCl (ZOFRAN) 4 MG Q6H PRN PRN IV Potassium Chloride (KCL 20MEQ/SWFI 100ML) 100 ML ASDIR PRN IV Sodium Bicarbonate (SODIUM BICARBONATE) 50 MEQ ASDIR PRN IV Albumin Human (ALBUMINAR-25%) 12.5 GM ASDIR PRN IV Heparin Sodium (Porcine) (HEPARIN SODIUM) 3,000 UNIT ASDIR PRN DIALYSIS Lidocaine HCl (LIDOCAINE HCL/PF) 0.5 ML ASDIR PRN I-DERMAL (CKD) Mannitol (Mannitol 20%) 12.5 GM ASDIR PRN IV Sodium Chloride (SODIUM CHLORIDE 0.9%) 2,000 ML ASDIR PRN IV Tamsulosin HCl (Flomax 0.4 mg) 0.4 MG BEDTIME PO Physical ExamGeneral appearance: alert, awakePsych: alert, oriented x 3HEENT: anicteric, sclera clearNeck: supple, no JVDCardiovascular: regular rate rhythm, S1/P8Ipighsxxxgl: aerating well, clear bilaterallyAbdomen: bowel sounds present, non-distended, softSkin: intact, no rashMusculoskeletal - general: Musculoskeletal - general: joints normal, normal muscle mass, normal toneNeuro/GIFT OFFICER: alert, oriented X 3, CNII-XII intact ResultsFindings/Data:Laboratory Tests: 07/16 07/16 07/15 07/15 0310 0309 [...] (Auto) (14.0 - 32.0 %) 7.1 L Starke % (Auto) (4.8 - 9.0 %) 12.2 H Eos % (Auto) (0.3 - 3.7 %) 6.9 H Baso % (Auto) (0.0 - 2.0 %) 0.7 Neut # (Auto) (2.0 - 7.6 x10 3/uL) 7.58 Lymph # (Auto) (1.0 - 3.8 x10 3/uL) 0.77 L Starke # (Auto) (0.1 - 0.8 x10 3/uL) 1.32 H Eos # (Auto) (0.0 - 0.2 x10 3/uL) 0.75 H Baso # (Auto) (0.0 - 0.2 x10 3/uL) 0.08 Abs Immat Gran (auto) (0.00 - 0.03 x10 3/uL) 0.31 H Add Manual Diff NO Immature Gran % (0.0 - 2.0 %) 2.9 H Nucleated RBC % (0 - 0 %) 0.0 Nucleated RBCs # (Man) (0.0 - 0.1 x10 3/uL) 0.00 Diagnosis, Assessment PlanFree Text A P:Non-STEMIMultivessel CADS/p CABG e1Puywqhgb deconditioningImpaired mobility and gaitPostoperative anemiaDyslipidemiaHypertensionAKIAcute systolic heart failureHemodynamic issues postopLeukocytosis trending down Plan:Continue PT/OTOut of bed to chairWork on strength, bed mobility, transfers, gaitSternal precautionIncrease enduranceFall precautionsMonitor p.o. intake and nutritionStrict decubitus precautionsMonitor anemia. 2/7Persistent left pneumothorax. IR guided pigtail place. CXR shows expansion of the lung Urology consulted -Pt on FlomaxNephrology managing renal issues and elevated K+ - Nephrology discussed POC with CT surgery, no emergent HD needed at this time repeat lab in a.m. if worsen, will plan for TDC. Advance therapies as tolerated Therapy update:Transfers: Mirtha Gait: 200ftDuring therapy session patient's blood pressure drops with standing from 91/52 to 78/48Patient was asymptomaticPost gait blood pressure was 86/52Pt lives alone and has 5 to 6 stairs to enter house IRF consulted. Will require insurance approval SNF order has been placed Total time was 35 minutes > 50% with patient performing physical examination, discussing plan of care, goals, therapies, progress, medications, labs, IRF. All questions answeredConsultants: cardiology, cardiovascular surgery, nephrologyRehab attestation:Face to face exam completed. Treatment plan discussed with patient. at [facility] RPT #:[id number] OF REPORTPRProgress [id number]:02:[id number] Available for patient [id number]:57:17 HCACL 2022-07-16 07:53:00 [id number]:53:00 [facility] ([facility])Nephrology Progress NoteREPORT#:[id number] REPORT STATUS: SignedDATE:07/16/22 TIME: 0753 PATIENT: SHERRI ARCE UNIT #: [id number]#: [id number] [address] [birth year] AGE: 81 SEX: M ATTEND: Sarbjit Mcarthur MDADM AUTHOR: Evelina Plaza MD * ALL edits or amendments must be made on the electronic/computer document * SubjectiveChief complaint:Feeling okay and has no complaints at this time. Objective GeneralVS/I O:Vital Signs: Date Time Temp Pulse Resp B/P B/P Pulse O2 O2 Flow FiO2 Mean Ox Delivery Rate 07/16 1139 100 Room air 21 08 1100 82 25 112/58 78 94 02/08 [...] 02/08 0730 87 27 100/58 76 96 /08 0715 86 35 110/56 78 94 02/08 [...] Urine 900 1240 PATIENT WEIGHT: Weight (lb): 200Weight (oz): 13.46Weight (kg): 91.100 MedicationsActive Meds + DC'd Last 24 HrsAmiodarone HCl (CORDARONE) 200 MG BID PO Cefazolin Sodium (KEFZOL OR ANCEF) 2 GM PREOP ONCALL IV (CKD) Albumin Human (ALBUMINAR-25%) 12.5 GM ASDIR PRN IV Sodium Chloride (SODIUM CHLORIDE) 10 ML ASDIR PRN IV Phenylephrine HCl (Phenylephrine PF 500 mg/5 mL Inj) 0 .STK-MED ONE .ROUTE (DC) Cefazolin Sodium (KEFZOL OR ANCEF) 0 .STK-MED ONE .ROUTE (DC) Propofol (DIPRIVAN 200MG/20ML INJECTION) 0 .STK-MED ONE IV (DC) Fentanyl Citrate (SUBLIMAZE) 0 .STK-MED ONE IV (DC) Dexamethasone Sodium Phosphate (DECADRON) 0 .STK-MED ONE .ROUTE (DC) Etomidate (AMIDATE) 0 .STK-MED ONE IV (DC) Lidocaine HCl (XYLOCAINE) 0 .STK-MED ONE .ROUTE (DC) Ondansetron HCl (ZOFRAN) 0 .STK-MED ONE .ROUTE (DC) Heparin Sodium (HEPARIN SODIUM) 0 .STK-MED ONE .ROUTE (DC) Midodrine (PROAMATINE) 10 MG 0900,1300,1700 PO Sodium Chloride (SODIUM CHLORIDE) 20 ML ASDIR IV Midodrine (PROAMATINE) 5 MG 0900,1300,1700 PO (DC) Sodium Bicarbonate (SODIUM BICARBONATE) 650 MG BID PO Ipratropium [place] (ATROVENT) 500 MCG RTQ2H PRN PRN INH Lactulose (LACTULOSE) 20 GM DAILY PRN PRN PO Cyanocobalamin (Vitamin B-12 500 mcg tab) 500 MCG DAILY PO Ferrous Sulfate (FERROUS SULFATE) 325 MG DAILY PO Dopamine HCl/Dextrose (DOPamine 400MG/D5W 250ML) 250 ML ASDIR IV Bisacodyl (DULCOLAX) 10 MG ONCE PRN RECTAL Atorvastatin Calcium (LIPITOR) 40 MG 2100 PO Clopidogrel Bisulfate (Plavix) 75 MG DAILY PO Polyethylene Glycol (MIRALAX) 17 GM DAILY PO Calcium Chloride (CALCIUM CHLORIDE) 1 GM ASDIR PRN IV Sodium Chloride (SODIUM CHLORIDE 0.9%) 100 MLCalcium Chloride (CALCIUM CHLORIDE) 2 GM ASDIR PRN IV Sodium Chloride (SODIUM CHLORIDE 0.9%) 100 MLMagnesium Sulfate (MAGNESIUM SULFATE 4GM/SWFI 100ML) 100 ML ASDIR PRN IV Magnesium Sulfate (MAGNESIUM SULFATE 2GM/SWFI 50ML) 50 ML ASDIR PRN IV Potassium Chloride (KCL 10MEQ/SWFI 50ML) 50 ML ASDIR PRN IV Sodium Chloride (SODIUM CHLORIDE 0.9%) 2,000 ML ASDIR PRN IV Sodium Phosphate (SODIUM PHOSPHATE) 25 MMOL ASDIR PRN IV Sodium Chloride (SODIUM CHLORIDE 0.9%) 250 MLSodium Phosphate (SODIUM PHOSPHATE) 20 MMOL ASDIR PRN IV Sodium Chloride (SODIUM CHLORIDE 0.9%) 250 MLSodium Phosphate (SODIUM PHOSPHATE) 15 MMOL ASDIR PRN IV Sodium Chloride (SODIUM CHLORIDE 0.9%) 250 MLPantoprazole (PROTONIX) 40 MG DAILY@0600 PO Aspirin (ASPIRIN) 81 MG DAILY PO Vasopressin (VASOSTRICT 20 Unit/NS 100ML) 100 ML ASDIR IV (CKD) Amiodarone HCl (CORDARONE) 200 MG TID PO (DC) Docusate Sodium (COLACE) 100 MG BID PO Sennosides (Senna Lax 8.6 MG TABLET) 17.2 MG BEDTIME PO Ipratropium [place] (ATROVENT) 500 MCG RTQ4H INH Acetaminophen (TYLENOL) 650 MG Q4H PRN PRN PO Acetaminophen (TYLENOL) 650 MG Q4H PRN PRN RECTAL Calcium Chloride (CALCIUM CHLORIDE) 1 GM ASDIR PRN IV Dextrose/Water (DEXTROSE 10% IN WATER) 125 ML ASDIR PRN IV (CKD) Dextrose/Water (DEXTROSE 10% IN WATER) 250 ML ASDIR PRN IV (CKD) Epinephrine (ADRENALIN CHLORIDE) 4 MG ASDIR IV Dextrose/Water (DEXTROSE 5% WATER) 246 MLGlucagon (GLUCAGON) 1 MG ASDIR PRN IM Magnesium Sulfate (MAGNESIUM SULFATE 4GM/SWFI 100ML) 100 ML ASDIR PRN IV Magnesium Sulfate (MAGNESIUM SULFATE 2GM/SWFI 50ML) 50 ML ASDIR PRN IV Magnesium Sulfate/Dextrose (MAGNESIUM SULFATE 1GM/D5W 100ML) 100 ML ASDIR PRN IV Nitroglycerin/Dextrose (NITROGLYCERIN 50,000MCG/D5W 250ML) 250 ML ASDIR IV Norepinephrine Bitartrate (NOREPINEPHRINE 8 MG/NS 250 ML) 250 ML TITRATE IV Ondansetron HCl (ZOFRAN) 4 MG Q6H PRN PRN IV Potassium Chloride (KCL 20MEQ/SWFI 100ML) 100 ML ASDIR PRN IV Sodium Bicarbonate (SODIUM BICARBONATE) 50 MEQ ASDIR PRN IV Albumin Human (ALBUMINAR-25%) 12.5 GM ASDIR PRN IV Heparin Sodium (Porcine) (HEPARIN SODIUM) 3,000 UNIT ASDIR PRN DIALYSIS Lidocaine HCl (LIDOCAINE HCL/PF) 0.5 ML ASDIR PRN I-DERMAL (CKD) Mannitol (Mannitol 20%) 12.5 GM ASDIR PRN IV Sodium Chloride (SODIUM CHLORIDE 0.9%) 2,000 ML ASDIR PRN IV Tamsulosin HCl (Flomax 0.4 mg) 0.4 MG BEDTIME PO Physical ExamHead/eyes: atraumatic, normocephalicENT: moist mucous membranes, normal noseNeck: non-tender, no JVDExtremities: no edema, no swellingNeuro/GIFT OFFICER: alert, oriented X 3, normal speechSkin: dry, intact ResultsFindings/Data:Laboratory Tests 07/16 07/16 07/15 07/15 0310 0309 [...] (Auto) (14.0 - 32.0 %) 7.1 L Starke % (Auto) (4.8 - 9.0 %) 12.2 H Eos % (Auto) (0.3 - 3.7 %) 6.9 H Baso % (Auto) (0.0 - 2.0 %) 0.7 Neut # (Auto) (2.0 - 7.6 x10 3/uL) 7.58 Lymph # (Auto) (1.0 - 3.8 x10 3/uL) 0.77 L Starke # (Auto) (0.1 - 0.8 x10 3/uL) 1.32 H Eos # (Auto) (0.0 - 0.2 x10 3/uL) 0.75 H Baso # (Auto) (0.0 - 0.2 x10 3/uL) 0.08 Abs Immat Gran (auto) (0.00 - 0.03 x10 3/uL) 0.31 H Add Manual Diff NO Immature Gran % (0.0 - 2.0 %) 2.9 H Nucleated RBC % (0 - 0 %) 0.0 Nucleated RBCs # (Man) (0.0 - 0.1 x10 3/uL) 0.00 Radiology data:Recent Impressions:RADIOLOGY - XR CHEST 1 V 07/15 1700 Report Impression - Status: SIGNED Entered: 07/15/2022 1841 IMPRESSION: Placement of right internal jugular central line with tip in the SVC. Impression By: StevenSBL - Ranjan Boo M.D.RADIOLOGY - XR CHEST 1 V 07/16 0500 Report Impression - Status: SIGNED Entered: 07/16/2022 0710 IMPRESSION: Removal of the left basilar chest tube. Otherwise, stable exam. Impression By: [email or web address] - Ranjan Sesay M.D.RADIOLOGY - XR CHEST 1 V 07/16 1055 Report Impression - Status: SIGNED Entered: 07/16/2022 1158 IMPRESSION: 1. Small left and stable small right layering pleural effusion. 2. Left chest tube present. No pneumothorax. 3. Stable bibasilar airspace opacities Impression By: [email or web address] - Som Enriquez M.D. Treatment Prophylaxis Treatment ProphylaxisDrain(s)/tube(s): Drain(s)/tube(s): chest Diagnosis, Assessment PlanFree Text A P:Assessment:1-CLAUDETTE likely from urinary retention. oliguric CLAUDETTE now post op, and shock!2- non-STEMI: multivessel disease w main left. S/P CABG X5 on - BPH. Waters catheter is in place.4-severe bilateral hydronephrosis5- shock : Cardiogenic6-hyperlipidemia7- AGMA Plan:- unknown Scr baseline but ultrasound suggestive MRD. - Ultrasound showed severe bilateral hydronephrosis. Continue Waters catheter. Urology consulted. - He underwent LHC on 07/03. Started on HD on 07/04. - s/p CABG X5 on 07/08-Excellent urine output after Lasix but no clearance w acidosis and hyperkalemia. - stopped NaHCO3 as started on HD. -TDC placed 07/15. plan for HD again on 07/16. - repeat labs in am. Consultants: cardiology, cardiovascular surgery, nephrology at 1221 RPT #:[id number] OF REPORTPRProgress [id number]:53:[id number] Available for patient [id number]:21:38 HCACL 2022-07-15 20:00:00 [id number]:00:00 [facility] ([facility]ospital[facility] Progress NoteREPORT#:[id number] REPORT STATUS: SignedDATE:07/15/22 TIME: 1999 PATIENT: SHERRI ARCE UNIT #: [id number]#: [id number] [address] [birth year] AGE: 81 SEX: M ATTEND: Sarbjit Mcarthur MDADM AUTHOR: Sarbjit Mcarthur MD * ALL edits or amendments must be made on the electronic/computer document * SubjectiveChief complaint:Status post CABG x5 on 07/09, Doing well today. Ambulated around the unit.HPI:81 y/o man with PMHx of HTN, Dyslipidemia that [facility] with chest pain and found to have a NSTEMI and also acute renal failure. Underwent cardiac cath yesterday and found to have severe CAD including left main disease. Transfer here for CABG evaluation. He also underwent HD Thursday and Thursday of this week. HD catheter was place at [facility]. Currently not having any chest pain. Had chest pain with SOB when he presentted to the previous hospital. Objective GeneralVS/I O:Vital Signs: Date Time Temp Pulse Resp B/P B/P Pulse O2 O2 Flow FiO2 Mean Ox Delivery Rate 07/15 1900 80 23 89/53 68 97 02/07 [...] 25 94 02/06 2100 80 24 95 24 hour I O ending at 0700: 02/07 0700 02/06 1900 Intake Total 500 705 Output Total 2160 1825 Balance -1660 -1120 Intake, Oral 500 475 Intake, Oral 230 Supplement Output, Chest 60 225 Tube Drainage Output, Urine 2100 1600 PATIENT WEIGHT: Weight (lb): 200Weight (oz): 13.46Weight (kg): 91.100 Physical ExamGeneral appearance: alert, awake, orientedHead/Eyes: atraumatic, EOMI, normal conjunctiva/sclera, normocephalic, PERRLAENT: moist mucosal membranesNeck: full range of motion, no bruit/NL carotids, no JVDCardiovascular: normal heart sounds, regular rate rhythmRespiratory: chest tube, aerating well, clear to auscultation, symmetric expansion, no distressAbdomen: non-tender, normal bowel sounds, soft, no distention, no guarding, no reboundExtremities: moves all, no cyanosis, no edemaMusculoskeletal: normal inspectionNeuro/GIFT OFFICER: alert, oriented X 3, normal speech, no motor deficits, no sensory deficitsSkin: intact, normal color, no rashPsychiatry: normal affect ResultsFindings/Data:Laboratory Tests 07/15 07/15 07/15 07/15 07/14 1710 1710 0320 319 2014 Chemistry Sodium (134 - 147 mEq/L) [...] (70 - 80) 9.1 L 9.7 L 10.1 L Glucose (70 - 110 mg/dL) 102 [...] (Auto) (14.0 - 32.0 %) 5.4 L Starke % (Auto) (4.8 - 9.0 %) 10.3 H Eos % (Auto) (0.3 - 3.7 %) 6.3 H Baso % (Auto) (0.0 - 2.0 %) 0.8 Neut # (Auto) (2.0 - 7.6 x10 3/uL) 10.83 H Lymph # (Auto) (1.0 - 3.8 x10 3/uL) 0.78 L Starke # (Auto) (0.1 - 0.8 x10 3/uL) 1.48 H Eos # (Auto) (0.0 - 0.2 x10 3/uL) 0.91 H Baso # (Auto) (0.0 - 0.2 x10 3/uL) 0.11 Abs Immat Gran (auto) (0.00 - 0.03 x10 3/uL) 0.32 H Add Manual Diff NO Immature Gran % (0.0 - 2.0 %) 2.2 H Nucleated RBC % (0 - 0 %) 0.0 Nucleated RBCs # (Man) (0.0 - 0.1 x10 3/uL) 0.00 Radiology data:Recent Impressions:RADIOLOGY - XR CHEST 1 V 07/15 0655 Report Impression - Status: SIGNED Entered: 07/15/2022 0727 IMPRESSION: Left apical and basilar chest tubes. No pneumothorax.Small bilateral pleural effusions.Bibasilar airspace opacities, mildly worsened. Impression By: StevenJMDarlin Schmidt M.D.RADIOLOGY - XR CHEST 1 V 07/15 1700 Report Impression - Status: SIGNED Entered: 07/15/2022 1841 IMPRESSION: Placement of right internal jugular central line with tip in the SVC. Impression By: Kourtney Boo M.D. Treatment Prophylaxis Treatment ProphylaxisDrain(s)/tube(s): Drain(s)/tube(s): chest Diagnosis, Assessment PlanConsultants: cardiology, cardiovascular surgery, nephrology Free Text DxA P NotesFree text DxA P notes:Assessment and plans:CAD (coronary artery disease) patient presented with NSTEMI and found to hve severe CAD. Cardiac cath shows: Left Main - Distal 70% LAD - Proximal 80% with another 60% and 70% lessions Cir - Proximal 80%,mid 80-90%, Distal 70% and OM 60% RCA - large dominant with proximal 40%, Mid 60%. Cardiology and CV surgeon consulted echo: ef 30-34%, mod hypokinesis of entire myocardium, grade 1 diastolic dysfunction Carotid Dopplers negative PFTs PT/OT s/p CABG X5 on 07/08 Patient on ASA, plavix, BB and Statin on amiodarone Beta-tomas as tolerated for low BP, Acute systolic heart failure Echocardiac with estimated LVEF of 30 to 34% with grade 1 diastolic dysfunction-s/p Lasix 20 mg twice daily 07/05 -on metoprolol 12.5 mg bid on hold now, BP low-no ACEI/ spironolactione for CLAUDETTE-Strict I's and O's, daily weights-Start GDMT prior to discharge CLAUDETTE (acute kidney injury) No prior Hx of renal disease. hx of BPH and treated with Fosamax w/o improvement nd continue to have difficulty urinating. On admission was found to be on acute renal filaure and had received HD twice prior to arrival here (thursday and thursday). Creatinine this am was 7.4, BUN 68 * Probably due to obstructive uropathy* waters already in place* Nephrology consuled for HD On daily hemodialysis as per nephrology Anemia:-Hemoglobin dropped to 6.5 s/p CABG 2 PRBC BT ordered 07/09 Monitor H H Leukocytosis:-Afebrile Monitor WBC count HTN (hypertension) patient on metoprolol 12.5 mg BID, will adjust as needed On labetalol/hydralazine as needed Dyslipidemia on Lipitor 40mg po daliy. BPH (benign prostatic hyperplasia) Started on Flomax at the previous hospital, will continue with it. Waters catheter in place, continue Waters catheter as per nephrology 07/05 Goiter Hx of Goiter and surgical resection. TSH 3.33, within normal limits. Patient is not on Thyroid medication. anemia of chronic kidney disease Hemoglobin 8.3, monitor Hypokalemia resolved UTI continue Rocephin for empiric treatment pending results of urine culture No growth for 48 hours DVT prophylaxis: Heparin 5000 units every 8 hoursDiet: Cardiac dietCODE STATUS: Full code Disposition: Status post CABG x5 on 07/09, hemodialysis as per nephrology. Worked with PT in his room, on 2 L oxygen via nasal cannula. PT/OT on board. Rehab consulted. Continue CVICU care. Quality: Gen Med Crit Care VTE ProphylaxisVTE prophylaxis initiated: yes Current MedicationsCurrent medication review:I attest that the foregoing medication list in the medical record is true, accurate, and complete to the best of my knowledge. Advanced Care Plan 65 or OlderDiscussed with: patientDiscussion included: living will (none), power of school commissioner (none), code status (full code) at 2001 RPT #:[id number] OF REPORTPRProgress [id number] Available for patient [id number] [facility] 2022-07-15 18:11:00 [id number]:11:00 [facility] [facility] ([facility])Nephrology Progress NoteREPORT#:[id number] REPORT STATUS: SignedDATE:07/15/22 TIME: 1810 PATIENT: SHERRI ARCE UNIT #: [id number]#: [id number] [address] [birth year] AGE: 81 SEX: M ATTEND: Sarbjit Mcarthur [facility] AUTHOR: Evelina Plaza MD * ALL edits or amendments must be made on the electronic/computer document * SubjectiveChief complaint:he was in OR for TDC placement. Objective GeneralVS/I O:Vital Signs: Date Time Temp Pulse Resp B/P B/P Pulse O2 O2 Flow FiO2 Mean Ox Delivery Rate 07/15 1500 75 22 100/58 76 94 / 1400 79 26 105/61 78 93 02/07 [...] 2100 80 24 95 02/06 1999 98.3 07/14 1999 84 27 123/60 83 98 02/06 1942 99 Room air 24 hour I O ending at 0700: 07 0700 02/06 1900 Intake Total 500 705 Output Total 2160 1825 Balance -1660 -1120 Intake, Oral 500 475 Intake, Oral 230 Supplement Output, Chest 60 225 Tube Drainage Output, Urine 2100 1600 PATIENT WEIGHT: Weight (lb): 200Weight (oz): 13.46Weight (kg): 91.100 MedicationsActive Meds + DC'd Last 24 HrsAmiodarone HCl (CORDARONE) 200 MG BID PO Cefazolin Sodium (KEFZOL OR ANCEF) 2 GM PREOP ONCALL IV (CKD) Phenylephrine HCl (Phenylephrine PF 500 mg/5 mL Inj) 0 .STK-MED ONE .ROUTE (DC) Cefazolin Sodium (KEFZOL OR ANCEF) 0 .STK-MED ONE .ROUTE (DC) Propofol (DIPRIVAN 200MG/20ML INJECTION) 0 .STK-MED ONE IV (DC) Fentanyl Citrate (SUBLIMAZE) 0 .STK-MED ONE IV (DC) Dexamethasone Sodium Phosphate (DECADRON) 0 .STK-MED ONE .ROUTE (DC) Etomidate (AMIDATE) 0 .STK-MED ONE IV (DC) Lidocaine HCl (XYLOCAINE) 0 .STK-MED ONE .ROUTE (DC) Ondansetron HCl (ZOFRAN) 0 .STK-MED ONE .ROUTE (DC) Heparin Sodium (HEPARIN SODIUM) 0 .STK-MED ONE .ROUTE (DC) Midodrine (PROAMATINE) 10 MG 0900,1300,1700 PO Dexamethasone Sodium Phosphate (DECADRON) 0 .STK-MED ONE .ROUTE (DC) Fentanyl Citrate (SUBLIMAZE) 0 .STK-MED ONE .ROUTE (DC) Heparin Sodium (HEPARIN SODIUM) 0 .STK-MED ONE .ROUTE (DC) Lidocaine HCl (XYLOCAINE) 0 .STK-MED ONE .ROUTE (DC) Ondansetron HCl (ZOFRAN) 0 .STK-MED ONE .ROUTE (DC) Propofol (DIPRIVAN 200MG/20ML INJECTION) 20 ML .STK-MED ONE IV (DC) Sodium Chloride (SODIUM CHLORIDE) 20 ML ASDIR IV Dextrose/Water (DEXTROSE 10% IN WATER) 250 ML STAT STA IV (DC) Insulin Human Regular (HUMAN INSULIN REG) 10 UNITS STAT STA IV (DC) Dextrose/Water (DEXTROSE 10% IN WATER) 250 ML STAT STA IV (DC) Insulin Human Regular (HUMAN INSULIN REG) 10 UNITS STAT STA IV (DC) Sodium Polystyrene Sulfonate (KAYEXELATE) 30 GM STAT STA PO (DC) Sodium Polystyrene Sulfonate (KAYEXELATE) 15 GM ONCE ONE PO (DC) Midodrine (PROAMATINE) 5 MG 0900,1300,1700 PO (DC) Sodium Bicarbonate (SODIUM BICARBONATE) 650 MG BID PO Ipratropium [place] (ATROVENT) 500 MCG RTQ2H PRN PRN INH Lactulose (LACTULOSE) 20 GM DAILY PRN PRN PO Cyanocobalamin (Vitamin B-12 500 mcg tab) 500 MCG DAILY PO Ferrous Sulfate (FERROUS SULFATE) 325 MG DAILY PO Dopamine HCl/Dextrose (DOPamine 400MG/D5W 250ML) 250 ML ASDIR IV Bisacodyl (DULCOLAX) 10 MG ONCE PRN RECTAL Atorvastatin Calcium (LIPITOR) 40 MG 2100 PO Clopidogrel Bisulfate (Plavix) 75 MG DAILY PO Polyethylene Glycol (MIRALAX) 17 GM DAILY PO Miscellaneous Information (PHARMACY TO DOSE/EVALUATE) 1 EACH ASDIR MISC (DC) Calcium Chloride (CALCIUM CHLORIDE) 1 GM ASDIR PRN IV Sodium Chloride (SODIUM CHLORIDE 0.9%) 100 MLCalcium Chloride (CALCIUM CHLORIDE) 2 GM ASDIR PRN IV Sodium Chloride (SODIUM CHLORIDE 0.9%) 100 MLMagnesium Sulfate (MAGNESIUM SULFATE 4GM/SWFI 100ML) 100 ML ASDIR PRN IV Magnesium Sulfate (MAGNESIUM SULFATE 2GM/SWFI 50ML) 50 ML ASDIR PRN IV Miscellaneous (PRISMASATE BGK 4/2.5 SOLUTION) 5,000 ML ASDIR DIALYSIS (DC) Potassium Chloride (KCL 10MEQ/SWFI 50ML) 50 ML ASDIR PRN IV Sodium Chloride (SODIUM CHLORIDE 0.9%) 2,000 ML ASDIR PRN IV Sodium Phosphate (SODIUM PHOSPHATE) 25 MMOL ASDIR PRN IV Sodium Chloride (SODIUM CHLORIDE 0.9%) 250 MLSodium Phosphate (SODIUM PHOSPHATE) 20 MMOL ASDIR PRN IV Sodium Chloride (SODIUM CHLORIDE 0.9%) 250 MLSodium Phosphate (SODIUM PHOSPHATE) 15 MMOL ASDIR PRN IV Sodium Chloride (SODIUM CHLORIDE 0.9%) 250 MLPantoprazole (PROTONIX) 40 MG DAILY@0600 PO Aspirin (ASPIRIN) 81 MG DAILY PO Vasopressin (VASOSTRICT 20 Unit/NS 100ML) 100 ML ASDIR IV (CKD) Amiodarone HCl (CORDARONE) 200 MG TID PO Docusate Sodium (COLACE) 100 MG BID PO Sennosides (Senna Lax 8.6 MG TABLET) 17.2 MG BEDTIME PO Ipratropium [place] (ATROVENT) 500 MCG RTQ4H INH Acetaminophen (TYLENOL) 650 MG Q4H PRN PRN PO Acetaminophen (TYLENOL) 650 MG Q4H PRN PRN RECTAL Calcium Chloride (CALCIUM CHLORIDE) 1 GM ASDIR PRN IV Dextrose/Water (DEXTROSE 10% IN WATER) 125 ML ASDIR PRN IV (CKD) Dextrose/Water (DEXTROSE 10% IN WATER) 250 ML ASDIR PRN IV (CKD) Epinephrine (ADRENALIN CHLORIDE) 4 MG ASDIR IV Dextrose/Water (DEXTROSE 5% WATER) 246 MLGlucagon (GLUCAGON) 1 MG ASDIR PRN IM Magnesium Sulfate (MAGNESIUM SULFATE 4GM/SWFI 100ML) 100 ML ASDIR PRN IV Magnesium Sulfate (MAGNESIUM SULFATE 2GM/SWFI 50ML) 50 ML ASDIR PRN IV Magnesium Sulfate/Dextrose (MAGNESIUM SULFATE 1GM/D5W 100ML) 100 ML ASDIR PRN IV Nitroglycerin/Dextrose (NITROGLYCERIN 50,000MCG/D5W 250ML) 250 ML ASDIR IV Norepinephrine Bitartrate (NOREPINEPHRINE 8 MG/NS 250 ML) 250 ML TITRATE IV Ondansetron HCl (ZOFRAN) 4 MG Q6H PRN PRN IV Potassium Chloride (KCL 20MEQ/SWFI 100ML) 100 ML ASDIR PRN IV Sodium Bicarbonate (SODIUM BICARBONATE) 50 MEQ ASDIR PRN IV Albumin Human (ALBUMINAR-25%) 12.5 GM ASDIR PRN IV Heparin Sodium (Porcine) (HEPARIN SODIUM) 3,000 UNIT ASDIR PRN DIALYSIS Lidocaine HCl (LIDOCAINE HCL/PF) 0.5 ML ASDIR PRN I-DERMAL (CKD) Mannitol (Mannitol 20%) 12.5 GM ASDIR PRN IV Sodium Chloride (SODIUM CHLORIDE 0.9%) 2,000 ML ASDIR PRN IV Tamsulosin HCl (Flomax 0.4 mg) 0.4 MG BEDTIME PO Treatment Prophylaxis Treatment ProphylaxisDrain(s)/tube(s): Drain(s)/tube(s): chest Diagnosis, Assessment PlanFree Text A P:Assessment:1-CLAUDETTE likely from urinary retention. oliguric CLAUDETTE now post op, and shock!2- non-STEMI: multivessel disease w main left. S/P CABG X5 on - BPH. Waters catheter is in place.4-severe bilateral hydronephrosis5- shock : Cardiogenic6-hyperlipidemia7- AGMA Plan:- unknown Scr baseline but ultrasound suggestive MRD. - Ultrasound showed severe bilateral hydronephrosis. Continue Waters catheter. Urology consulted. - He underwent LHC on 07/03. Started on HD without UF on 07/04. - s/p CABG X5 on 07/08-Excellent urine output after Lasix but no clearance w acidosis and hyperkalemia. - on NaHCO3 tabs -TDC placed 07/15. plan for HD. Consultants: cardiology, cardiovascular surgery, nephrology at 3510 RPT #:[id number] OF REPORTPRProgress [id number]:[id number] Available for patient [id number] [facility] 2022-07-15 16:40:00 [id number] [address] PATIENT NAME: SHERRI ARCE ADMIT DATE: 07/02/22ACCOUNT NO: [id number] ROOM NO: [facility] AGE: 81 REPORT TYPE: OPERATIVE REPORT SEX: M ADMITTING PHYSICIAN:Srinath Kaur MD ATTENDING PHYSICIAN:Srinath Kaur MD OPERATION DATE: 07/15/2022 PREOPERATIVE DIAGNOSIS: End-stage renal disease on hemodialysis. POSTOPERATIVE DIAGNOSIS: End-stage renal disease on hemodialysis. PROCEDURE:1. Placement of tunneled dialysis catheter (BioFlo DuraMax 28 cm).2. Cannulation of the internal jugular vein under ultrasound guidance. SURGEON: Lina Schwarz MD PENSION CONSULTANT: None. ANESTHESIOLOGIST: Dr. Adams. ANESTHESIA: MAC. ESTIMATED BLOOD LOSS: 5 mL INDICATIONS: Mr. Arce is a 81-year-old gentleman with end-stage renal diseaseand coronary artery disease. He was started on hemodialysis preoperatively.Following coronary artery bypass graft surgery his kidney function improved andhence the temporary dialysis catheter was removed, but unfortunately for last 24hours the patient's kidney function has deteriorated and an decision was made toplace a tunneled dialysis catheter. FINDINGS: The fluoroscopy confirmed the position of the tip of the catheter inthe right atrium. PROCEDURE IN DETAIL: Mr. Arce was identified in the preoperative holding area,brought to the operating room and placed supine on the operating table. Afterinduction of anesthesia, the right side of the neck was prepped and draped instandard surgical fashion. Using ultrasound, the internal jugular vein waslocalized and a wire was placed in the internal jugular vein using modifiedSeldinger technique. Next, half a centimeter incision was made in theinfraclavicular region. The tunneled catheter was then passed through this upto the guidewire in the neck, making sure that the cuff was under the skin.Next a breakable sheath was placed in the internal jugular vein over theguidewire. The dialysis catheter tip was then passed through the breakable sheath into the right atrium. The sheath was then broken and removed. A fluoroscopy was performed of the neck to make sure that there was no kink in the tunneled catheter. The catheter PATIENT NAME: SHERRI ARCE was then secured to the skin using 2 interrupted nylon suture. Catheter was primed with heparin. Subcuticular suture was taken in the neck to close the puncture site incision. Sterile dressing was applied. Anesthesia was then reversed and the patient was moved to PACU in stable condition. Dictated By: Lina Schwarz MD Date Dictated: 07/15/2022 16:40:43Date Transcribed: 07/15/2022 23:26:18AC/SVRJob #: [id number] ID: [id number] and Edited by Vinay Schwarz MD On 07/18/22 4:47:58 PM at 0451 PATIENT NAME: SHERRI ARCE [id number] VAvailable for patient [id number] [facility] 2022-07-15 12:55:00 [id number] [facility] ([facility])Cardiology Progress NoteREPORT#:[id number] REPORT STATUS: SignedDATE:07/15/22 TIME: 1255 PATIENT: SHERRI ARCE UNIT #: [id number]#: [id number] [address]OB: [birth year] AGE: 81 SEX: M ATTEND: Srinath Kaur [facility] AUTHOR: Sonya StacyCNP * ALL edits or amendments must be made on the electronic/computer document * SubjectiveComments:OOB to chair, has significant LE edema. Objective GeneralVS/I O:24 hour I O ending at 0700: 02/07 0700 02/06 1900 Intake Total 500 705 Output Total 2160 1825 Balance -1660 -1120 Intake, Oral 500 475 Intake, Oral 230 Supplement Output, Chest 60 225 Tube Drainage Output, Urine 2100 1600 Vital Signs: Date Time Temp Pulse Resp B/P B/P Pulse O2 O2 Flow FiO2 Mean Ox Delivery Rate 02/07 0900 [...] 121/57 82 95 PATIENT WEIGHT: Weight (lb): 200Weight (oz): 13.46Weight (kg): 91.100 Medications:Active Meds + DC'd Last 24 HrsAmiodarone HCl (CORDARONE) 200 MG BID PO Cefazolin Sodium (KEFZOL OR ANCEF) 2 GM PREOP ONCALL IV (CKD) Midodrine (PROAMATINE) 10 MG 0900,1300,1700 PO Dexamethasone Sodium Phosphate (DECADRON) 0 .STK-MED ONE .ROUTE (DC) Fentanyl Citrate (SUBLIMAZE) 0 .STK-MED ONE .ROUTE (DC) Heparin Sodium (HEPARIN SODIUM) 0 .STK-MED ONE .ROUTE (DC) Lidocaine HCl (XYLOCAINE) 0 .STK-MED ONE .ROUTE (DC) Ondansetron HCl (ZOFRAN) 0 .STK-MED ONE .ROUTE (DC) Propofol (DIPRIVAN 200MG/20ML INJECTION) 20 ML .STK-MED ONE IV (DC) Sodium Chloride (SODIUM CHLORIDE) 20 ML ASDIR IV Dextrose/Water (DEXTROSE 10% IN WATER) 250 ML STAT STA IV (DC) Insulin Human Regular (HUMAN INSULIN REG) 10 UNITS STAT STA IV (DC) Dextrose/Water (DEXTROSE 10% IN WATER) 250 ML STAT STA IV (DC) Insulin Human Regular (HUMAN INSULIN REG) 10 UNITS STAT STA IV (DC) Sodium Polystyrene Sulfonate (KAYEXELATE) 30 GM STAT STA PO (DC) Sodium Polystyrene Sulfonate (KAYEXELATE) 15 GM ONCE ONE PO (DC) Furosemide (LASIX 40 mg/4 mL INJECTION) 40 MG ONCE ONE IV (DC) Midodrine (PROAMATINE) 5 MG 0900,1300,1700 PO (DC) Sodium Bicarbonate (SODIUM BICARBONATE) 650 MG BID PO Ipratropium [place] (ATROVENT) 500 MCG RTQ2H PRN PRN INH Lactulose (LACTULOSE) 20 GM DAILY PRN PRN PO Cyanocobalamin (Vitamin B-12 500 mcg tab) 500 MCG DAILY PO Ferrous Sulfate (FERROUS SULFATE) 325 MG DAILY PO Dopamine HCl/Dextrose (DOPamine 400MG/D5W 250ML) 250 ML ASDIR IV Bisacodyl (DULCOLAX) 10 MG ONCE PRN RECTAL Atorvastatin Calcium (LIPITOR) 40 MG 2100 PO Clopidogrel Bisulfate (Plavix) 75 MG DAILY PO Polyethylene Glycol (MIRALAX) 17 GM DAILY PO Miscellaneous Information (PHARMACY TO DOSE/EVALUATE) 1 EACH ASDIR MISC (DC) Calcium Chloride (CALCIUM CHLORIDE) 1 GM ASDIR PRN IV Sodium Chloride (SODIUM CHLORIDE 0.9%) 100 MLCalcium Chloride (CALCIUM CHLORIDE) 2 GM ASDIR PRN IV Sodium Chloride (SODIUM CHLORIDE 0.9%) 100 MLMagnesium Sulfate (MAGNESIUM SULFATE 4GM/SWFI 100ML) 100 ML ASDIR PRN IV Magnesium Sulfate (MAGNESIUM SULFATE 2GM/SWFI 50ML) 50 ML ASDIR PRN IV Miscellaneous (PRISMASATE BGK 4/2.5 SOLUTION) 5,000 ML ASDIR DIALYSIS (DC) Potassium Chloride (KCL 10MEQ/SWFI 50ML) 50 ML ASDIR PRN IV Sodium Chloride (SODIUM CHLORIDE 0.9%) 2,000 ML ASDIR PRN IV Sodium Phosphate (SODIUM PHOSPHATE) 25 MMOL ASDIR PRN IV Sodium Chloride (SODIUM CHLORIDE 0.9%) 250 MLSodium Phosphate (SODIUM PHOSPHATE) 20 MMOL ASDIR PRN IV Sodium Chloride (SODIUM CHLORIDE 0.9%) 250 MLSodium Phosphate (SODIUM PHOSPHATE) 15 MMOL ASDIR PRN IV Sodium Chloride (SODIUM CHLORIDE 0.9%) 250 MLPantoprazole (PROTONIX) 40 MG DAILY@0600 PO Aspirin (ASPIRIN) 81 MG DAILY PO Vasopressin (VASOSTRICT 20 Unit/NS 100ML) 100 ML ASDIR IV (CKD) Amiodarone HCl (CORDARONE) 200 MG TID PO Docusate Sodium (COLACE) 100 MG BID PO Sennosides (Senna Lax 8.6 MG TABLET) 17.2 MG BEDTIME PO Ipratropium [place] (ATROVENT) 500 MCG RTQ4H INH Acetaminophen (TYLENOL) 650 MG Q4H PRN PRN PO Acetaminophen (TYLENOL) 650 MG Q4H PRN PRN RECTAL Calcium Chloride (CALCIUM CHLORIDE) 1 GM ASDIR PRN IV Dextrose/Water (DEXTROSE 10% IN WATER) 125 ML ASDIR PRN IV (CKD) Dextrose/Water (DEXTROSE 10% IN WATER) 250 ML ASDIR PRN IV (CKD) Epinephrine (ADRENALIN CHLORIDE) 4 MG ASDIR IV Dextrose/Water (DEXTROSE 5% WATER) 246 MLGlucagon (GLUCAGON) 1 MG ASDIR PRN IM Magnesium Sulfate (MAGNESIUM SULFATE 4GM/SWFI 100ML) 100 ML ASDIR PRN IV Magnesium Sulfate (MAGNESIUM SULFATE 2GM/SWFI 50ML) 50 ML ASDIR PRN IV Magnesium Sulfate/Dextrose (MAGNESIUM SULFATE 1GM/D5W 100ML) 100 ML ASDIR PRN IV Nitroglycerin/Dextrose (NITROGLYCERIN 50,000MCG/D5W 250ML) 250 ML ASDIR IV Norepinephrine Bitartrate (NOREPINEPHRINE 8 MG/NS 250 ML) 250 ML TITRATE IV Ondansetron HCl (ZOFRAN) 4 MG Q6H PRN PRN IV Potassium Chloride (KCL 20MEQ/SWFI 100ML) 100 ML ASDIR PRN IV Sodium Bicarbonate (SODIUM BICARBONATE) 50 MEQ ASDIR PRN IV Albumin Human (ALBUMINAR-25%) 12.5 GM ASDIR PRN IV Heparin Sodium (Porcine) (HEPARIN SODIUM) 3,000 UNIT ASDIR PRN DIALYSIS Lidocaine HCl (LIDOCAINE HCL/PF) 0.5 ML ASDIR PRN I-DERMAL (CKD) Mannitol (Mannitol 20%) 12.5 GM ASDIR PRN IV Sodium Chloride (SODIUM CHLORIDE 0.9%) 2,000 ML ASDIR PRN IV Tamsulosin HCl (Flomax 0.4 mg) 0.4 MG BEDTIME PO Status post:07/08/22 CABG x 5 (MISTRY-LAD, SVG-Ladonna, SVG-OM1< SVG-OM3, SVG-PDA) ALAA Physical ExamGeneral appearance: alert, awake, orientedCardiovascular: CV assessment: pedal edema, regular rate and rhythm, no murmurRespiratory: decreased breath sounds, no distressAbdomen: soft, non-tender, normal bowel sounds, no distention, no guardingUpper extremity: UE assessment: normal temperature, no edemaLower extremity: LE assessment: edema (2 to 3+ pitting edema), normal temperature, no edemaMusculoskeletal: normal inspectionNeuro/GIFT OFFICER: alert, oriented X 3, normal speechSkin: dryPsychiatry: normal affect ResultsFindings/Data:Laboratory Tests 07/15 Chemistry Sodium (134 - 147 [...] (Auto) (14.0 - 32.0 %) 5.4 L Starke % (Auto) (4.8 - 9.0 %) 10.3 H Eos % (Auto) (0.3 - 3.7 %) 6.3 H Baso % (Auto) (0.0 - 2.0 %) 0.8 Neut # (Auto) (2.0 - 7.6 x10 3/uL) 10.83 H Lymph # (Auto) (1.0 - 3.8 x10 3/uL) 0.78 L Starke # (Auto) (0.1 - 0.8 x10 3/uL) 1.48 H Eos # (Auto) (0.0 - 0.2 x10 3/uL) 0.91 H Baso # (Auto) (0.0 - 0.2 x10 3/uL) 0.11 Abs Immat Gran (auto) (0.00 - 0.03 x10 3/uL) 0.32 H Add Manual Diff NO Immature Gran % (0.0 - 2.0 %) 2.2 H Nucleated RBC % (0 - 0 %) 0.0 Nucleated RBCs # (Man) (0.0 - 0.1 x10 3/uL) 0.00 Laboratory Tests 07/15 319 Chemistry Magnesium (1.80 - 2.40 mg/dL) 2.36 Radiology data:Recent Impressions:RADIOLOGY - XR CHEST 1 V 07/14 1411 Report Impression - Status: SIGNED Entered: 07/14/2022 1509 IMPRESSION: Interval placement of left chest tube near the apex with decreased size of left pneumothorax now small. Otherwise, stable exam. Impression By: [email or web address] - Ranjan Sesay M.D.CAT SCAN - CT GUID NDL [facility] (Biopsy/Asp) 07/14 1509 Report Impression - Status: SIGNED Entered: 07/14/2022 1519 IMPRESSION: CT-guided left chest tube placement.Impression By: [email or web address] Yasmin Block M.D.RADIOLOGY - XR CHEST 1 V 07/15 0655 Report Impression - Status: SIGNED Entered: 07/15/2022 0727 IMPRESSION: Left apical and basilar chest tubes. No pneumothorax.Small bilateral pleural effusions.Bibasilar airspace opacities, mildly worsened. Impression By: [email or web address] - Sree Schmidt M.D. Results: labs reviewed, vital signs reviewed, rhythm personally rev'dTelemetry Interpretation:sinus rhythm Diagnosis, Assessment PlanPlan discussed with: patient, nurse Free Text DxA P NotesFree Text DxA P Notes:Mr. Arce is a pleasant 81 y/o M w/ PMHx: HTN, HLD presented to [facility] on 06/28/22 for chest pain and sob. He was diagnosed NSTEMI w/ [...] and diffuse 50-60% dRCA. He transferred to [facility] for CABG. 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 urology consulted for bladded outlet obstruction and hydronephrosis, started on Flomax worsening creatinine - for TDC placement today - HTN. hypotension post-op off Pressors. Midodrine 10 mg po tid. - HLD. On statins. - Anemia. monitor at 1710 at 1057 RPT #:[id number] OF REPORTPRProgress [id number]:55:[id number] Available for patient [id number]:35 [facility] 2022-07-15 12:32:00 [id number] [facility] ([facility])Critical Care Progress NoteREPORT#:[id number] REPORT STATUS: SignedDATE:07/15/22 TIME: 1232 PATIENT: SHERRI ARCE UNIT #: [id number]#: [id number] [address] [birth year] AGE: 81 SEX: M ATTEND: Sarbjit Mcarthur [facility] AUTHOR: Jana Mittal MD * ALL edits or amendments must be made on the electronic/computer document * SubjectiveChief complaint:CABGHPI:This is 81 years old male with medical history significant for HTN and dyslipidemia [facility] and found to have a NSTEMI and also acute renal failure. He underwent cardiac cath and was found to have severe CAD including left main disease with EF of 30 to 35% and ischemic cardiomyopathy. Transfer here for CABG evaluation. CV surgery were consulted and the patient earlier today underwent CABG x 5 (MISTRY-LAD, SVG-Ladonna, SVG-OM1< SVG-OM3, SVG-PDA) and ALAA. His intraoperative course was without significant occurrence. The patient was brought to CVICU intubated and ventilated on milrinone drip, norepinephrine drip, epinephrine drip and vasopressin drip.His initial ABG showed metabolic acidosis and he received 2 A of sodium bicarb and 1 g of calcium.The patient started to wake up later in the evening but he looked weak, so he was reversed with neostigmine and glycopyrrolate. His motor strength improved significantly after that and his spontaneous breathing trial was good on the following ABG showed some metabolic acidosis. The patient will be extubated to a BiPAP as his CO2 was high on the ABG. Comments:Interval history- Patient creatinine is slightly up still making good urine Objective GeneralVS/I OLast Documented: Result Date Time Pulse Ox 94 07/15 0800 B/P 101/55 07/15 0900 B/P Mean 74 07/15 0900 Pulse 80 07/15 0900 Resp 28 07/15 0900 Temp 36.7 07/15 0800 O2 Delivery Room air 07/14 1942 FiO2 21 07/14 1511 O2 Flow Rate 3 07/14 1151 24 hour I O ending at 0700: 07/15 0700 07/14 1900 Intake Total 500 705 Output Total 2160 1825 Balance -1660 -1120 Intake, Oral 500 475 Intake, Oral 230 Supplement Output, Chest 60 225 Tube Drainage Output, Urine 2100 1600 PATIENT WEIGHT: Weight (lb): 200Weight (oz): 13.46Weight (kg): 91.100 Medications:Active Meds + DC'd Last 24 HrsAmiodarone HCl (CORDARONE) 200 MG BID PO Cefazolin Sodium (KEFZOL OR ANCEF) 2 GM PREOP ONCALL IV (CKD) Midodrine (PROAMATINE) 10 MG 0900,1300,1700 PO Dexamethasone Sodium Phosphate (DECADRON) 0 .STK-MED ONE .ROUTE (DC) Fentanyl Citrate (SUBLIMAZE) 0 .STK-MED ONE .ROUTE (DC) Heparin Sodium (HEPARIN SODIUM) 0 .STK-MED ONE .ROUTE (DC) Lidocaine HCl (XYLOCAINE) 0 .STK-MED ONE .ROUTE (DC) Ondansetron HCl (ZOFRAN) 0 .STK-MED ONE .ROUTE (DC) Propofol (DIPRIVAN 200MG/20ML INJECTION) 20 ML .STK-MED ONE IV (DC) Sodium Chloride (SODIUM CHLORIDE) 20 ML ASDIR IV Dextrose/Water (DEXTROSE 10% IN WATER) 250 ML STAT STA IV (DC) Insulin Human Regular (HUMAN INSULIN REG) 10 UNITS STAT STA IV (DC) Dextrose/Water (DEXTROSE 10% IN WATER) 250 ML STAT STA IV (DC) Insulin Human Regular (HUMAN INSULIN REG) 10 UNITS STAT STA IV (DC) Sodium Polystyrene Sulfonate (KAYEXELATE) 30 GM STAT STA PO (DC) Sodium Polystyrene Sulfonate (KAYEXELATE) 15 GM ONCE ONE PO (DC) Furosemide (LASIX 40 mg/4 mL INJECTION) 40 MG ONCE ONE IV (DC) Midodrine (PROAMATINE) 5 MG 0900,1300,1700 PO (DC) Sodium Bicarbonate (SODIUM BICARBONATE) 650 MG BID PO Ipratropium [place] (ATROVENT) 500 MCG RTQ2H PRN PRN INH Lactulose (LACTULOSE) 20 GM DAILY PRN PRN PO Cyanocobalamin (Vitamin B-12 500 mcg tab) 500 MCG DAILY PO Ferrous Sulfate (FERROUS SULFATE) 325 MG DAILY PO Dopamine HCl/Dextrose (DOPamine 400MG/D5W 250ML) 250 ML ASDIR IV Bisacodyl (DULCOLAX) 10 MG ONCE PRN RECTAL Atorvastatin Calcium (LIPITOR) 40 MG 2100 PO Clopidogrel Bisulfate (Plavix) 75 MG DAILY PO Polyethylene Glycol (MIRALAX) 17 GM DAILY PO Miscellaneous Information (PHARMACY TO DOSE/EVALUATE) 1 EACH ASDIR MISC (DC) Calcium Chloride (CALCIUM CHLORIDE) 1 GM ASDIR PRN IV Sodium Chloride (SODIUM CHLORIDE 0.9%) 100 MLCalcium Chloride (CALCIUM CHLORIDE) 2 GM ASDIR PRN IV Sodium Chloride (SODIUM CHLORIDE 0.9%) 100 MLMagnesium Sulfate (MAGNESIUM SULFATE 4GM/SWFI 100ML) 100 ML ASDIR PRN IV Magnesium Sulfate (MAGNESIUM SULFATE 2GM/SWFI 50ML) 50 ML ASDIR PRN IV Miscellaneous (PRISMASATE BGK 4/2.5 SOLUTION) 5,000 ML ASDIR DIALYSIS (DC) Potassium Chloride (KCL 10MEQ/SWFI 50ML) 50 ML ASDIR PRN IV Sodium Chloride (SODIUM CHLORIDE 0.9%) 2,000 ML ASDIR PRN IV Sodium Phosphate (SODIUM PHOSPHATE) 25 MMOL ASDIR PRN IV Sodium Chloride (SODIUM CHLORIDE 0.9%) 250 MLSodium Phosphate (SODIUM PHOSPHATE) 20 MMOL ASDIR PRN IV Sodium Chloride (SODIUM CHLORIDE 0.9%) 250 MLSodium Phosphate (SODIUM PHOSPHATE) 15 MMOL ASDIR PRN IV Sodium Chloride (SODIUM CHLORIDE 0.9%) 250 MLPantoprazole (PROTONIX) 40 MG DAILY@0600 PO Aspirin (ASPIRIN) 81 MG DAILY PO Vasopressin (VASOSTRICT 20 Unit/NS 100ML) 100 ML ASDIR IV (CKD) Amiodarone HCl (CORDARONE) 200 MG TID PO Docusate Sodium (COLACE) 100 MG BID PO Sennosides (Senna Lax 8.6 MG TABLET) 17.2 MG BEDTIME PO Ipratropium [place] (ATROVENT) 500 MCG RTQ4H INH Acetaminophen (TYLENOL) 650 MG Q4H PRN PRN PO Acetaminophen (TYLENOL) 650 MG Q4H PRN PRN RECTAL Calcium Chloride (CALCIUM CHLORIDE) 1 GM ASDIR PRN IV Dextrose/Water (DEXTROSE 10% IN WATER) 125 ML ASDIR PRN IV (CKD) Dextrose/Water (DEXTROSE 10% IN WATER) 250 ML ASDIR PRN IV (CKD) Epinephrine (ADRENALIN CHLORIDE) 4 MG ASDIR IV Dextrose/Water (DEXTROSE 5% WATER) 246 MLGlucagon (GLUCAGON) 1 MG ASDIR PRN IM Magnesium Sulfate (MAGNESIUM SULFATE 4GM/SWFI 100ML) 100 ML ASDIR PRN IV Magnesium Sulfate (MAGNESIUM SULFATE 2GM/SWFI 50ML) 50 ML ASDIR PRN IV Magnesium Sulfate/Dextrose (MAGNESIUM SULFATE 1GM/D5W 100ML) 100 ML ASDIR PRN IV Nitroglycerin/Dextrose (NITROGLYCERIN 50,000MCG/D5W 250ML) 250 ML ASDIR IV Norepinephrine Bitartrate (NOREPINEPHRINE 8 MG/NS 250 ML) 250 ML TITRATE IV Ondansetron HCl (ZOFRAN) 4 MG Q6H PRN PRN IV Potassium Chloride (KCL 20MEQ/SWFI 100ML) 100 ML ASDIR PRN IV Sodium Bicarbonate (SODIUM BICARBONATE) 50 MEQ ASDIR PRN IV Albumin Human (ALBUMINAR-25%) 12.5 GM ASDIR PRN IV Heparin Sodium (Porcine) (HEPARIN SODIUM) 3,000 UNIT ASDIR PRN DIALYSIS Lidocaine HCl (LIDOCAINE HCL/PF) 0.5 ML ASDIR PRN I-DERMAL (CKD) Mannitol (Mannitol 20%) 12.5 GM ASDIR PRN IV Sodium Chloride (SODIUM CHLORIDE 0.9%) 2,000 ML ASDIR PRN IV Tamsulosin HCl (Flomax 0.4 mg) 0.4 MG BEDTIME PO ResultsFindings/data:Laboratory Tests 07/15 Chemistry Sodium (134 - 147 [...] (Auto) (14.0 - 32.0 %) 5.4 L Starke % (Auto) (4.8 - 9.0 %) 10.3 H Eos % (Auto) (0.3 - 3.7 %) 6.3 H Baso % (Auto) (0.0 - 2.0 %) 0.8 Neut # (Auto) (2.0 - 7.6 x10 3/uL) 10.83 H Lymph # (Auto) (1.0 - 3.8 x10 3/uL) 0.78 L Starke # (Auto) (0.1 - 0.8 x10 3/uL) 1.48 H Eos # (Auto) (0.0 - 0.2 x10 3/uL) 0.91 H Baso # (Auto) (0.0 - 0.2 x10 3/uL) 0.11 Abs Immat Gran (auto) (0.00 - 0.03 x10 3/uL) 0.32 H Add Manual Diff NO Immature Gran % (0.0 - 2.0 %) 2.2 H Nucleated RBC % (0 - 0 %) 0.0 Nucleated RBCs # (Man) (0.0 - 0.1 x10 3/uL) 0.00 Laboratory Tests 07/15/22 0320:[Embedded Image Not Available] 07/14/22 2015:[Embedded Image Not Available] Radiology dataRecent Impressions:RADIOLOGY - XR CHEST 1 V 07/14 1411 Report Impression - Status: SIGNED Entered: 07/14/2022 150 IMPRESSION: Interval placement of left chest tube near the apex with decreased size of left pneumothorax now small. Otherwise, stable exam. Impression By: [email or web address] - Ranjan Sesay M.D.CAT SCAN - CT GUID [facility] (Biopsy/Asp) 07/14 1509 Report Impression - Status: SIGNED Entered: 07/14/2022 4487 IMPRESSION: CT-guided left chest tube placement.Impression By: [email or web address] - Hansa Block M.D.RADIOLOGY - XR CHEST 1 V 07/15 0655 Report Impression - Status: SIGNED Entered: 07/15/2022 8548 IMPRESSION: Left apical and basilar chest tubes. No pneumothorax.Small bilateral pleural effusions.Bibasilar airspace opacities, mildly worsened. Impression By: [email or web address] - Sree Schmidt M.D. Free Text Obj NotesFree Text Obj Notes:General appearance: Elderly male in no acute distress, interactive and conversationalHEENT: atraumatic, normocephalic, moist mucosal membranesNeck: full range of motion, supple/no meningismusCardiovascular: S1-S2 regular rate and rhythmRespiratory: symmetric expansion, no acute respiratory distressAbdomen: soft, non-tender, no distention, no guardingGenitourinary: waters with clear urineExtremities: pedal pulses palpable, moves all, no cyanosis, mild LE edema, right>leftMusculoskeletal: normal inspection, no muscle spasmNeuro/GIFT OFFICER: alert and oriented x3, CNII-XII grossly intact, no motor deficitsSkin: dry, intact and clean surgery dressing Treatment Prophylaxis Treatment ProphylaxisDrain(s)/tube(s): Drain(s)/tube(s): chest Diagnosis, Assessment PlanProblem list/A P: 1. CLAUDETTE (acute kidney injury) 2. CAD (coronary artery disease) 3. Goiter 4. BPH (benign prostatic hyperplasia) 5. Dyslipidemia 6. HTN (hypertension) Free text A P:73-year-old male with Acute pulmonary insufficiency following thoracic surgeryStatus post CABG x 5 (MISTRY-LAD, SVG-Ladonna, SVG-OM1< SVG-OM3, SVG-PDA) and ALAAAcute blood loss anemiaHypotensionIschemic cardiomyopathy, EF 30 to 34%Multivessel CADAKI on hemodialysis Continue mechanical ventilation, vent settings reviewedTitrate FiO2 to keep saturation more than 90%.Spontaneous breathing trial as soon as possibleWean to extubateFollow ABGs and CXRsABG shows metabolic acidosis. Patient received 2 A of sodium bicarb and 1 g of calciumKeep off sedationJudicious pain controlMilrinone drip 0.25Epinephrine dripNorepinephrine dripVasopressin dripTitrate drips to keep MAP more than 65Wean milrinone off first per CV surgeryMinimize fluids per CV surgeryAspirin and PlavixAtorvastatinMetoprololFollow lactate levelMonitor chest tube outputHemodialysis per nephrologyMonitor urine output and kidney functionMonitor and replete electrolytesPerioperative antibioticsCardiac diet with bowel regimen once extubatedBG control with insulin gtt per protocolPT/OTVTE prophylaxis.Stress ulcer prophylaxis.Discussed with CV surgery, anesthesia and ICU teamCritical care time 85 minutes 2/1Appears neuro intact, multimodal pain control, minimize narcotic use, no CO2 narcosisExtubated successfully, sats well on NC, wean O2, monitor for hypercapnia, encourage I-S, obtain serial ABGs, CXR reviewedHD unstable, weaning vasopressors and inotrope, monitor HD parameters, low CVP, lactic acidosis with uptrending lactate, gentle volume resuscitationOliguric CLAUDETTE, plan for CRRT per renal, hyperkalemia treated, obtain serial labPO challenge, bowel regimen, serial abdominal exam, monitor LFTsLeukocytosis postop, likely reactive, trend WBC, s/p antibiotic course for UTI ,periop antibioticsHgb trending down, no evidence of active bleed, monitor CTs output, RBC given HDinstabilityBlood glucose control with insulin drip per protocolEncourage PT/OT and activity as toleratedDVT and GI prophylaxis with DAPT and PPI 2/2Appears neuro intact, multimodal pain control, minimize narcotic usesats well on NC, wean O2, encourage I-S, ABG and CXR reviewedHD fairly stable, on minimal vasopressor support, lactic acidosis cleared s/p resuscitationOliguric CLAUDETTE, tolerated CRRT, holding off per renal, monitor UOP and electrolytes closelyOral diet as tolerated, bowel regimen, monitor LFTsLeukocytosis postop, trend WBC, treated for UTI preopHgb responded to PRBC, no evidence of active bleed, minimal CTs outputBlood glucose control, transitioned insulin drip to SSIEncourage PT/OT and out of bed as toleratedDVT and GI prophylaxis with DAPT and PPI 2/3Remains neuro intact, pain appears well controlledSats well on NC, wean O2, encourage I-S, ABG and CXR reviewedHD unstable, remains on minimal vasopressor support, attempt to wean, start midodrineOliguric CLAUDETTE, off CRRT per renal, minimal UOP, started renal dose dopamine dripTolerating oral diet, continue bowel regimen, LFTs normalizedLeukocytosis postop, continue to trend WBC, treated for UTI preopHgb stable s/p PRBC, no evidence of active bleed, monitor pCT outputBlood glucose control with sliding scale insulinEncourage PT/OT and out of bed as tolerated, CM for dispo planDVT and GI prophylaxis with DAPT and PPI 2/4Remains neuro intact, pain appears well controlledSats well on NC, wean O2, encourage I-S, ABG and CXR reviewedHD unstable, weaning vasopressors, increase midodrine dose, remains in SRAKI, likely postrenal, improved UOP, HD today per renal, hyperkalemia treatedTolerating oral diet, has bowel movement and bowel regimen, LFTs normalizedLeukocytosis, WBC trending down, currently off antibiotics s/p treatment for UTIHgb remains stable s/p PRBC, no evidence of active bleed, minimal CT outputBlood glucose control with sliding scale insulinEncourage PT/OT and out of bed as tolerated, CM for dispo plan, IPR consultedDVT and GI prophylaxis with DAPT and PPI 2/5Remains neuro intact, pain appears well controlledSats well, wean O2, encourage I-S, ABG and CXR reviewed, has left PTXHD stable off vasopressors, increased midodrine doseAKI, likely postrenal, making urine, HD per renal, renal US with hydronephrosisTolerating oral diet, has bowel movement and bowel regimenLeukocytosis, WBC trending down, monitor off antibiotics s/p treatment for UTIHgb remains stable s/p PRBC, no evidence of active bleed, keep CT to suctionBlood glucose control with sliding scale insulinTolerating PT/OT, CM for dispo plan, IPR on boardDVT and GI prophylaxis with DAPT and PPI 2/6Neuro Intact. Pain well controlled.Is off oxygen. On room air saturating more than 94%. Imaging chest x-ray reviewed. Still has a persistent left pneumothorax. IR guided pigtail was placed today , CXR shows expansion of the lung Maintaining the blood pressure on midodrine 5 3 times daily.Making good urine. Monitor the potassium. As per renal we will see if he needsdialysis tomorrow then will need a tunneled catheter.White count remained stable. No antibiotics.And bowel movement. Continue bowel regimen.Urology evaluation pending.PT OT. Pending rehab placement when medically ready. /Neurologically intact. Pain is well controlled.He is on room air.Chest x-ray reviewed. Very small pneumothorax/. Does have bilateral pulmonary infiltrates.Continue pigtail to suction.Patient making good urine but his BUN/creatinine is still worsening.We will have tunneled dialysis catheter today. Renal following.Will discontinue Waters and monitor for trial of void if fails then will need Waters replaced back. Continue Flomax. Urology following.We will increase the midodrine to 10 3 times daily.Continue PT and PPI.SCDs for DVT prophylaxis.Disposition is SNF. Total care time 32 minutes excluding procedureConsultants: cardiology, cardiovascular surgery, nephrology Quality: Gen Med Crit Care VTE ProphylaxisVTE prophylaxis initiated: yes at 1259 RPT #:[id number] OF REPORTPRProgress [id number] Available for patient [id number] HCACL 2022-07-15 09:49:00 [id number] [facility] ([facility])Cardiothoracic Surgery ProgREPORT#:[id number] REPORT STATUS: SignedDATE:07/15/22 TIME: 0949 PATIENT: SHERRI ARCE UNIT #: [id number]#: [id number] [address] [birth year] AGE: 81 SEX: M ATTEND: Srinath Kaur MDA AUTHOR: Gianna Hoover * ALL edits or amendments must be made on the electronic/computer document * GeneralPost-op: day 7Status post:07/08/22 CABG x 5 (MISTRY-LAD, SVG-Ladonna, SVG-OM1< SVG-OM3, SVG-PDA) ALEXIS TATUM (RGSV) SubjectiveChief complaint:s/p CABGno complaints Review of SystemsConstitutional:Denies: chills, fever, malaise. Allergy/Immun:Denies: allergic reaction. Respiratory:Denies: SOB. Cardiovascular:Denies: chest pain, palpitations. GI:Denies: abdominal pain, nausea, vomiting. :Denies: dysuria, hematuria. Heme:Denies: bleeding. Neuro:Denies: dizziness, headache, vision change. All systems rev neg: except as marked Objective GeneralVS/I OLast Documented: Result Date Time Pulse Ox 94 07/15 0800 B/P 101/55 07/15 899 B/P Mean 74 07/15 899 Pulse 80 07/15 899 Resp 28 07/15 899 Temp 98.1 07/15 08 O2 Delivery Room air 07/14 1942 FiO2 21 07/14 1511 O2 Flow Rate 3 07/14 1151 24 hour I O ending at 0700: 07/15 0700 07/14 1900 Intake Total 500 705 Output Total 2160 1825 Balance -1660 -1120 Intake, Oral 500 475 Intake, Oral 230 Supplement Output, Chest 60 225 Tube Drainage Output, Urine 2100 1600 PATIENT WEIGHT: Weight (lb): 200Weight (oz): 13.46Weight (kg): 91.100 Dietitian Nutrition assessmentThe data set between the solid lines has been imported from the dietitian's assessment. BMI Calculated: 27.2Nutrition related diagnosis: Nutrition diagnosis details: Nutrition problem: Increased nutrient needsNutrition etiology: Chronic diseaseNutrition signs and symptoms: ESTIMATED NEEDS S/P CABGNutrition prescription: 1. RECOMMEND CONTIUE CARDIAC DIET, MONITOR LABS WITH PTON DIALYSIS. 2. CONTINUE NEPRO BID. 3. DIET EDUCATION PRIOR TO DISCHARGE. 4. MONITOR PO, WT, LABS, BM.Dietitian name: Trang Rodriguez, DIETAssessment completed: 07/10/22 Physical ExamGeneral appearance: alert, awake, orientedWound/incision: Location:sternal Site condition: edges approximated, incision intactHEENT: anicteric, mucosal membranes moistNeck: supple/no meningismusCardiovascular: normal heart sounds, regular rate rhythmRespiratory: aerating well, symmetric expansion, no distressAbdomen: soft, non-tender, no distentionGenitourinary: no foleyExtremities: moves allNeuro/GIFT OFFICER: alert, oriented X 3, normal speech, no motor deficitsPsychiatry: normal affect, normal mood Current MedicationsMedications:Active Meds + DC'd Last 24 HrsAmiodarone HCl (CORDARONE) 200 MG BID PO Dextrose/Water (DEXTROSE 10% IN WATER) 250 ML STAT STA IV (DC) Insulin Human Regular (HUMAN INSULIN REG) 10 UNITS STAT STA IV (DC) Dextrose/Water (DEXTROSE 10% IN WATER) 250 ML STAT STA IV (DC) Insulin Human Regular (HUMAN INSULIN REG) 10 UNITS STAT STA IV (DC) Sodium Polystyrene Sulfonate (KAYEXELATE) 30 GM STAT STA PO (DC) Sodium Polystyrene Sulfonate (KAYEXELATE) 15 GM ONCE ONE PO (DC) Furosemide (LASIX 40 mg/4 mL INJECTION) 40 MG ONCE ONE IV (DC) Fentanyl Citrate (SUBLIMAZE) 0 .STK-MED ONE IV (DC) Midodrine (PROAMATINE) 5 MG 0900,1300,1700 PO Sodium Bicarbonate (SODIUM BICARBONATE) 650 MG BID PO Ipratropium [place] (ATROVENT) 500 MCG RTQ2H PRN PRN INH Lactulose (LACTULOSE) 20 GM DAILY PRN PRN PO Cyanocobalamin (Vitamin B-12 500 mcg tab) 500 MCG DAILY PO Ferrous Sulfate (FERROUS SULFATE) 325 MG DAILY PO Dopamine HCl/Dextrose (DOPamine 400MG/D5W 250ML) 250 ML ASDIR IV Bisacodyl (DULCOLAX) 10 MG ONCE PRN RECTAL Atorvastatin Calcium (LIPITOR) 40 MG 2100 PO Clopidogrel Bisulfate (Plavix) 75 MG DAILY PO Polyethylene Glycol (MIRALAX) 17 GM DAILY PO Miscellaneous Information (PHARMACY TO DOSE/EVALUATE) 1 EACH ASDIR MISC (DC) Calcium Chloride (CALCIUM CHLORIDE) 1 GM ASDIR PRN IV Sodium Chloride (SODIUM CHLORIDE 0.9%) 100 MLCalcium Chloride (CALCIUM CHLORIDE) 2 GM ASDIR PRN IV Sodium Chloride (SODIUM CHLORIDE 0.9%) 100 MLMagnesium Sulfate (MAGNESIUM SULFATE 4GM/SWFI 100ML) 100 ML ASDIR PRN IV Magnesium Sulfate (MAGNESIUM SULFATE 2GM/SWFI 50ML) 50 ML ASDIR PRN IV Miscellaneous (PRISMASATE BGK 4/2.5 SOLUTION) 5,000 ML ASDIR DIALYSIS (DC) Potassium Chloride (KCL 10MEQ/SWFI 50ML) 50 ML ASDIR PRN IV Sodium Chloride (SODIUM CHLORIDE 0.9%) 2,000 ML ASDIR PRN IV Sodium Phosphate (SODIUM PHOSPHATE) 25 MMOL ASDIR PRN IV Sodium Chloride (SODIUM CHLORIDE 0.9%) 250 MLSodium Phosphate (SODIUM PHOSPHATE) 20 MMOL ASDIR PRN IV Sodium Chloride (SODIUM CHLORIDE 0.9%) 250 MLSodium Phosphate (SODIUM PHOSPHATE) 15 MMOL ASDIR PRN IV Sodium Chloride (SODIUM CHLORIDE 0.9%) 250 MLPantoprazole (PROTONIX) 40 MG DAILY@0600 PO Aspirin (ASPIRIN) 81 MG DAILY PO Vasopressin (VASOSTRICT 20 Unit/NS 100ML) 100 ML ASDIR IV (CKD) Amiodarone HCl (CORDARONE) 200 MG TID PO Docusate Sodium (COLACE) 100 MG BID PO Sennosides (Senna Lax 8.6 MG TABLET) 17.2 MG BEDTIME PO Ipratropium [place] (ATROVENT) 500 MCG RTQ4H INH Acetaminophen (TYLENOL) 650 MG Q4H PRN PRN PO Acetaminophen (TYLENOL) 650 MG Q4H PRN PRN RECTAL Calcium Chloride (CALCIUM CHLORIDE) 1 GM ASDIR PRN IV Dextrose/Water (DEXTROSE 10% IN WATER) 125 ML ASDIR PRN IV (CKD) Dextrose/Water (DEXTROSE 10% IN WATER) 250 ML ASDIR PRN IV (CKD) Epinephrine (ADRENALIN CHLORIDE) 4 MG ASDIR IV Dextrose/Water (DEXTROSE 5% WATER) 246 MLGlucagon (GLUCAGON) 1 MG ASDIR PRN IM Magnesium Sulfate (MAGNESIUM SULFATE 4GM/SWFI 100ML) 100 ML ASDIR PRN IV Magnesium Sulfate (MAGNESIUM SULFATE 2GM/SWFI 50ML) 50 ML ASDIR PRN IV Magnesium Sulfate/Dextrose (MAGNESIUM SULFATE 1GM/D5W 100ML) 100 ML ASDIR PRN IV Nitroglycerin/Dextrose (NITROGLYCERIN 50,000MCG/D5W 250ML) 250 ML ASDIR IV Norepinephrine Bitartrate (NOREPINEPHRINE 8 MG/NS 250 ML) 250 ML TITRATE IV Ondansetron HCl (ZOFRAN) 4 MG Q6H PRN PRN IV Potassium Chloride (KCL 20MEQ/SWFI 100ML) 100 ML ASDIR PRN IV Sodium Bicarbonate (SODIUM BICARBONATE) 50 MEQ ASDIR PRN IV Albumin Human (ALBUMINAR-25%) 12.5 GM ASDIR PRN IV Heparin Sodium (Porcine) (HEPARIN SODIUM) 3,000 UNIT ASDIR PRN DIALYSIS Lidocaine HCl (LIDOCAINE HCL/PF) 0.5 ML ASDIR PRN I-DERMAL (CKD) Mannitol (Mannitol 20%) 12.5 GM ASDIR PRN IV Sodium Chloride (SODIUM CHLORIDE 0.9%) 2,000 ML ASDIR PRN IV Tamsulosin HCl (Flomax 0.4 mg) 0.4 MG BEDTIME PO ResultsFindings/Data:Laboratory Tests 07/15 07/15 07/14 07/14 032 0320 2014 1043 Chemistry Sodium (134 - [...] (70 - 80) 9.7 L 10.1 L 10.1 L Glucose (70 - 110 [...] (Auto) (14.0 - 32.0 %) 5.4 L Starke % (Auto) (4.8 - 9.0 %) 10.3 H Eos % (Auto) (0.3 - 3.7 %) 6.3 H Baso % (Auto) (0.0 - 2.0 %) 0.8 Neut # (Auto) (2.0 - 7.6 x10 3/uL) 10.83 H Lymph # (Auto) (1.0 - 3.8 x10 3/uL) 0.78 L Starke # (Auto) (0.1 - 0.8 x10 3/uL) 1.48 H Eos # (Auto) (0.0 - 0.2 x10 3/uL) 0.91 H Baso # (Auto) (0.0 - 0.2 x10 3/uL) 0.11 Abs Immat Gran (auto) (0.00 - 0.03 x10 3/uL) 0.32 H Add Manual Diff NO Immature Gran % (0.0 - 2.0 %) 2.2 H Nucleated RBC % (0 - 0 %) 0.0 Nucleated RBCs # (Man) (0.0 - 0.1 x10 3/uL) 0.00 Radiology data:Recent Impressions:RADIOLOGY - XR CHEST 1 V 07/14 1411 Report Impression - Status: SIGNED Entered: 07/14/2022 4246 IMPRESSION: Interval placement of left chest tube near the apex with decreased size of left pneumothorax now small. Otherwise, stable exam. Impression By: [email or web address] - Ranjan Sesay M.D.CAT SCAN - CT GUID [facility] (Biopsy/Asp) 07/14 1509 Report Impression - Status: SIGNED Entered: 07/14/2022 1519 IMPRESSION: CT-guided left chest tube placement.Impression By: [email or web address] Yasmin Block M.D.RADIOLOGY - XR CHEST 1 V 07/15 0655 Report Impression - Status: SIGNED Entered: 07/15/2022 0730 IMPRESSION: Left apical and basilar chest tubes. No pneumothorax.Small bilateral pleural effusions.Bibasilar airspace opacities, mildly worsened. Impression By: [email or web address] Yasmin Schmidt M.D. Results: labs reviewed, vital signs stable, rythm personally rev'd, x-ray personally reviewed, current med profile rev'd Treatment Prophylaxis Treatment ProphylaxisDrain(s)/tube(s): Drain(s)/tube(s): chest Quality: Trauma Gen Surg Advanced Care Plan 65 or OlderDiscussed with: patientDiscussion included: living will (none), power of school commissioner (none), code status (full code) VTE Prophylaxis - GeneralVTE prophylaxis initiated: yes Diagnosis, Assessment PlanHospital course to date:This is a 81-year-old gentleman who presented to an outside hospital with complaints of chest pains while walking at his home on Thursday. He denies any previous history of coronary artery disease or other [place]. He was seen and evaluated at [facility]. He was found to have a urinary tract infection with urinary retention and acute kidney. He was started on dialysis via a left femoral temporary catheter. He underwent dialysis on Thursday, Thursday. Renal has been consultedDuring his work-up at outside hospital he underwent Left heart catheterization showing severe Left Main 70%. LAD: Proximal diffuse 80% stenosis and then diffuse 60% in the midsegment and on the distal segment, there is focal 70% stenosis. Diagonal branches with luminal irregularities. Left circumflex, codominant circulation with proximal 80%, mid 80 to 90% and then in the OM, there is proximal 60%, distal left circumflex has a 70% stenosis. RCA large and dominant with proximal 40% stenosis, mid 60% stenosis and then diffuse 50% stenosis all the way distally and the PLV and the PDA with luminal irregularities. CV surgery consulted for evaluation for coronary bypass graft. CAROTIDS- No carotid stenosis CT chest complete IMPRESSION: Small bilateral pleural effusions with bibasilar atelectasis. Echo:1. Left ventricle: The cavity size is at the upper limits of normal. Wall thickness is mildly increased. Systolic function is severely reduced. The estimated ejection fraction is 30-34%. Moderate hypokinesis of the entire myocardium. Doppler parameters are consistent with abnormal left ventricular relaxation (grade 1 diastolic dysfunction).2. Pericardium, extracardiac: A small pericardial effusion is identified along the left ventricular free wall, along the right ventricular free wall, and along the right atrial free wall. Assessment/Plan1) CAD Mutlivessel Will obtain echo,carotids. 2) CLAUDETTE Started dialysis on Creatine 7.3 Renal consulted. 3) BPH- Urinary retention. Waters in place Workup for CABG underway. Will get functional assessment with PT. PFT pending Carotid dopplers- No disease Echo PendingDialyiss per Renal. Baseline Cr unknown. 07/04 07/04 Doing well today, alert, up in the chair. Denies chest painEchocardiogram showed LVEF 30 to 34%, mild MR, trivial TRCT chest images reviewedEncourage I-S and mobilizationCreatinine 5.5 from 7.3, good urine output. Renal US showed bilateral severe hydronephrosis. Plan for HD today and tomorrow Will tentatively schedule patient for surgery on Thursday.Patient seen and plan reviewed with Dr Schwarz 07/05 Remains in a stable condition, denies chest pain BUN 53, creatinine 5.4. Plan for hemodialysis today and tomorrow for clearanceHe is also on Lasix 20 mg IV twice daily, urine output 1.1 L overnightWe will calculate risk of surgery with STS scoreEncourage I-S and mobilizationWill tentatively schedule patient for surgery on Thursday.Pt seen and plan reviewed with Dr Schwarz 07/06 BUN 36, creatinine 4.4. Plan for hemodialysis todayAwaiting CABG tomorrowSurgery, risks involved, STS score, benefits, complications and alternatives were explained to the patient. He acknowledged understanding and is willing to proceedN.p.o. after midnightPatient seen and plan reviewed with Dr. Schwarz 07/09/22POD 1CABG x 5 (MISTRY-LAD, SVG-Ladonna, SVG-OM1< SVG-OM3, SVG-PDA), ALAA, EVH (RGSV)Patient hemodynamically unstable, on epi at 4, and vaso .04, decreased uop overnight- 150ccStarted patient on CRRT 2k/3.5Wean epi as tolerated, Cardiac incex 2.8-3labs and chest x-ray reviewed, electrolytes stable, hgb 6.5- transfuse 2 units PRBCOn 4l nasal cannula- encourage incentive spirometer and deep breathingKeep both chest tubes and monitor outputsGlycemic control on insulin dripCardiac dietBowel regimen protocolPain managementSCDs for DVT and PPI for GI prophylaxisPT/OTMonitor patient closely in CVICUPlan of care discussed with Dr. Schwarz 07/10/22PO 2Patient alert, awake, and oriented, no distres notedlabs and CXR reviewed stableBreathing comfortably on 3l nasal cannula- wean as tolerated to melissa O2 sats > 92%Encourage I-S use and deep breathingOn CRRT- able to remove 2.9L overnight- nephrology followingCardiac index 3.1- wean off epi dripKeep chest tubes for now and monitor outputsTransition to sliding scale insulin- cardiac dietTry to get patient out of bed to chair today- ambulate with PT/OTSCDs for DVT prophylaxisKeep patient in CVICU for close monitoring 07/11/22PO 3Patient in stable condition, overnight events noted- decreased urine output 35 ml last night-started on dopamine gtt for renal perfusionCardiac index 3.5- epi currently at 2- will discontinue today, vasopressin at 0.02, added low dose midodrine 2.5 mg TID, repeat echocardiogram.Renal Following- trial LasixPatient has Left femoral temp dialysis cath, Will need tunneled dialysis IJ cathplaced if need dialysis. On 5l nasal cannula- wean off as tolerated, encourage incentive spirometer and deep breathingKeep left pleural chest tube and monitor output- > 200 cc Tolerating diet, bowel regimen protocolPT/OT- patient out of bed to chair today- encourage ambulationDVT prophylaxis with SCDsMonitor patient closely in CVICUPlan discussed with multidisciplinary teamPlan discussed with Dr Schwarz/ Dr Rodríguez 07/12/22POD 5,Patient resting comfortable. Patient with hx of urinary retention- After standing today- voided 1.4 L. Needs Urology consult for retention K 5.4- HD in progress. Dr Plaza following. CT output 20- DC today. Pacers remain in place. 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 Card: Remains in sinus rhythm. Respir: on 7 L NC O2 95%Dispo: Rehab consultedPatient seen and exmained by Dr Rodríguez. Plan discussed with Team 07/13/22 5Patient with no new complaints. Recieved HD yesterday.Requiring less oxygen, now on 3l nasal cannula- continue to wean offCXR reviewed left apical pneumothorax 4cm/30%, Chest tube drained 140 overnight,placed back on suction to clear pneumo, CT drianed 200cc this AM. on suction. Labs reviewed- stable, decreased WBC, hgb stable, CR 3.9Eating welll, +BMUO- 550CC, BP improved on midodrine. Continue PT/OT, ambulation and incentive spirometer useRehab folowing Monitor in ICU todayDisucssed with Dr Schwarz- DC femoral line and Central line today. DC art line. Will re-eval need for dialysis cath Thursday. Consider tunnelled cath if need.Patient seen and examined by Dr Rodríguez. Plan discussed with Care team. 6Patient in stable condition, no distress notedRemains on room air, O2 sats > 92%, encourage I-S use and deep breathingCXR shows moderate left apical pneumothorax unchangedCT remained on suction, no airleak noConsult IR for pigtail chest tube placement this morningCardiac/renal dietLabs reviewed- K 5.1- repeat labs K 4.8Nephrology followingContinue therapy with PT/OTFollow up with urology for waters catheter- Dr Harris consulted.Monitor in CVICUPlan of care discussed with Dr Schwarz and multidisciplinary team 07/15/22POD 7Patient alert, awake, and oriented, no distress, no complaints at this timeBreathing comfortable on room airCXR shows resolved pneumothoraxLP and pigtail chest tube- no air leak noted, minimal output from LP 40 overnightLabs reviewed, K 5.2- corrected, follow up with nephrology to discuss need for dialysisTrend labs this afternoonBowel regimen, +gasFoley catheter discontinued per urology- voiding trial this AMAmbulation and incentive spirometer use encouragedDVT prophylaxis with SCDsKeep in ICU DISP: SNF- Case management Discussed plan of care with multidisciplinary team and Dr. Schwarz Consultants: cardiology, cardiovascular surgery, nephrology at 0757 at 1945 RPT #:[id number] OF REPORTPRProgress [id number]:[id number] Available for patient [id number]:20 [facility] 2022-07-15 08:18:00 [id number]:18:00 [facility] ([facility])Rehab Progress NoteREPORT#:[id number] REPORT STATUS: SignedDATE:07/15/22 TIME: 817 PATIENT: SHERRI ARCE UNIT #: [id number]#: [id number] [address] [birth year] AGE: 81 SEX: M ATTEND: Sarbjit Mcarthur [facility] AUTHOR: Florencia Washburn 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 except that above. Objective GeneralVS:Vital Signs: Date Time Temp Pulse Resp B/P B/P Pulse O2 O2 Flow FiO2 Mean Ox Delivery Rate 07/15 799 98.1 07/15 712 88 29 93 07/15 699 90 29 110/57 77 91 07/15 0630 86 28 92 07/15 06 84 29 100/55 72 90 07/15 0530 84 28 92 02/07 0500 88 [...] 89/52 67 89 PATIENT WEIGHT: Weight (lb): 200Weight (oz): 13.46Weight (kg): 91.100 Medications:Active Meds + DC'd Last 24 HrsAmiodarone HCl (CORDARONE) 200 MG BID PO Dextrose/Water (DEXTROSE 10% IN WATER) 250 ML STAT STA IV (DC) Insulin Human Regular (HUMAN INSULIN REG) 10 UNITS STAT STA IV (DC) Dextrose/Water (DEXTROSE 10% IN WATER) 250 ML STAT STA IV (DC) Insulin Human Regular (HUMAN INSULIN REG) 10 UNITS STAT STA IV (DC) Sodium Polystyrene Sulfonate (KAYEXELATE) 30 GM STAT STA PO (DC) Sodium Polystyrene Sulfonate (KAYEXELATE) 15 GM ONCE ONE PO (DC) Furosemide (LASIX 40 mg/4 mL INJECTION) 40 MG ONCE ONE IV (DC) Fentanyl Citrate (SUBLIMAZE) 0 .STK-MED ONE IV (DC) Midodrine (PROAMATINE) 5 MG 0900,1300,1700 PO Sodium Bicarbonate (SODIUM BICARBONATE) 650 MG BID PO Ipratropium [place] (ATROVENT) 500 MCG RTQ2H PRN PRN INH Lactulose (LACTULOSE) 20 GM DAILY PRN PRN PO Cyanocobalamin (Vitamin B-12 500 mcg tab) 500 MCG DAILY PO Ferrous Sulfate (FERROUS SULFATE) 325 MG DAILY PO Dopamine HCl/Dextrose (DOPamine 400MG/D5W 250ML) 250 ML ASDIR IV Bisacodyl (DULCOLAX) 10 MG ONCE PRN RECTAL Atorvastatin Calcium (LIPITOR) 40 MG 2100 PO Clopidogrel Bisulfate (Plavix) 75 MG DAILY PO Polyethylene Glycol (MIRALAX) 17 GM DAILY PO Miscellaneous Information (PHARMACY TO DOSE/EVALUATE) 1 EACH ASDIR MISC (DC) Calcium Chloride (CALCIUM CHLORIDE) 1 GM ASDIR PRN IV Sodium Chloride (SODIUM CHLORIDE 0.9%) 100 MLCalcium Chloride (CALCIUM CHLORIDE) 2 GM ASDIR PRN IV Sodium Chloride (SODIUM CHLORIDE 0.9%) 100 MLMagnesium Sulfate (MAGNESIUM SULFATE 4GM/SWFI 100ML) 100 ML ASDIR PRN IV Magnesium Sulfate (MAGNESIUM SULFATE 2GM/SWFI 50ML) 50 ML ASDIR PRN IV Miscellaneous (PRISMASATE BGK 4/2.5 SOLUTION) 5,000 ML ASDIR DIALYSIS (DC) Potassium Chloride (KCL 10MEQ/SWFI 50ML) 50 ML ASDIR PRN IV Sodium Chloride (SODIUM CHLORIDE 0.9%) 2,000 ML ASDIR PRN IV Sodium Phosphate (SODIUM PHOSPHATE) 25 MMOL ASDIR PRN IV Sodium Chloride (SODIUM CHLORIDE 0.9%) 250 MLSodium Phosphate (SODIUM PHOSPHATE) 20 MMOL ASDIR PRN IV Sodium Chloride (SODIUM CHLORIDE 0.9%) 250 MLSodium Phosphate (SODIUM PHOSPHATE) 15 MMOL ASDIR PRN IV Sodium Chloride (SODIUM CHLORIDE 0.9%) 250 MLPantoprazole (PROTONIX) 40 MG DAILY@0600 PO Aspirin (ASPIRIN) 81 MG DAILY PO Vasopressin (VASOSTRICT 20 Unit/NS 100ML) 100 ML ASDIR IV (CKD) Amiodarone HCl (CORDARONE) 200 MG TID PO Docusate Sodium (COLACE) 100 MG BID PO Sennosides (Senna Lax 8.6 MG TABLET) 17.2 MG BEDTIME PO Ipratropium [place] (ATROVENT) 500 MCG RTQ4H INH Acetaminophen (TYLENOL) 650 MG Q4H PRN PRN PO Acetaminophen (TYLENOL) 650 MG Q4H PRN PRN RECTAL Calcium Chloride (CALCIUM CHLORIDE) 1 GM ASDIR PRN IV Dextrose/Water (DEXTROSE 10% IN WATER) 125 ML ASDIR PRN IV (CKD) Dextrose/Water (DEXTROSE 10% IN WATER) 250 ML ASDIR PRN IV (CKD) Epinephrine (ADRENALIN CHLORIDE) 4 MG ASDIR IV Dextrose/Water (DEXTROSE 5% WATER) 246 MLGlucagon (GLUCAGON) 1 MG ASDIR PRN IM Magnesium Sulfate (MAGNESIUM SULFATE 4GM/SWFI 100ML) 100 ML ASDIR PRN IV Magnesium Sulfate (MAGNESIUM SULFATE 2GM/SWFI 50ML) 50 ML ASDIR PRN IV Magnesium Sulfate/Dextrose (MAGNESIUM SULFATE 1GM/D5W 100ML) 100 ML ASDIR PRN IV Nitroglycerin/Dextrose (NITROGLYCERIN 50,000MCG/D5W 250ML) 250 ML ASDIR IV Norepinephrine Bitartrate (NOREPINEPHRINE 8 MG/NS 250 ML) 250 ML TITRATE IV Ondansetron HCl (ZOFRAN) 4 MG Q6H PRN PRN IV Potassium Chloride (KCL 20MEQ/SWFI 100ML) 100 ML ASDIR PRN IV Sodium Bicarbonate (SODIUM BICARBONATE) 50 MEQ ASDIR PRN IV Albumin Human (ALBUMINAR-25%) 12.5 GM ASDIR PRN IV Heparin Sodium (Porcine) (HEPARIN SODIUM) 3,000 UNIT ASDIR PRN DIALYSIS Lidocaine HCl (LIDOCAINE HCL/PF) 0.5 ML ASDIR PRN I-DERMAL (CKD) Mannitol (Mannitol 20%) 12.5 GM ASDIR PRN IV Sodium Chloride (SODIUM CHLORIDE 0.9%) 2,000 ML ASDIR PRN IV Tamsulosin HCl (Flomax 0.4 mg) 0.4 MG BEDTIME PO Physical ExamGeneral appearance: alert, awakePsych: alert, oriented x 3HEENT: anicteric, sclera clearNeck: supple, no JVDCardiovascular: regular rate rhythm, S1/W6Buyhxvqzpnu: aerating well, clear bilaterallyAbdomen: bowel sounds present, non-distended, softSkin: intact, no rashMusculoskeletal - general: Musculoskeletal - general: joints normal, normal muscle mass, normal toneNeuro/GIFT OFFICER: alert, oriented X 3, CNII-XII intact ResultsFindings/Data:Laboratory Tests: 07/15 07/15 07/14 07/14 0320 0 2014 1042 Chemistry Sodium (134 - 147 mEq/L) 138 [...] (70 - 80) 9.7 L 10.1 L 10.1 L Glucose (70 - 110 [...] (Auto) (14.0 - 32.0 %) 5.4 L Starke % (Auto) (4.8 - 9.0 %) 10.3 H Eos % (Auto) (0.3 - 3.7 %) 6.3 H Baso % (Auto) (0.0 - 2.0 %) 0.8 Neut # (Auto) (2.0 - 7.6 x10 3/uL) 10.83 H Lymph # (Auto) (1.0 - 3.8 x10 3/uL) 0.78 L Starke # (Auto) (0.1 - 0.8 x10 3/uL) 1.48 H Eos # (Auto) (0.0 - 0.2 x10 3/uL) 0.91 H Baso # (Auto) (0.0 - 0.2 x10 3/uL) 0.11 Abs Immat Gran (auto) (0.00 - 0.03 x10 3/uL) 0.32 H Add Manual Diff NO Immature Gran % (0.0 - 2.0 %) 2.2 H Nucleated RBC % (0 - 0 %) 0.0 Nucleated RBCs # (Man) (0.0 - 0.1 x10 3/uL) 0.00 Diagnosis, Assessment PlanFree Text A P:Non-STEMIMultivessel CADS/p CABG x7Yqclzhdk deconditioningImpaired mobility and gaitPostoperative anemiaDyslipidemiaHypertensionAKIAcute systolic heart failureHemodynamic issues postopLeukocytosis trending down Plan:Continue PT/OTOut of bed to chairWork on strength, bed mobility, transfers, gaitSternal precautionIncrease enduranceFall precautionsMonitor p.o. intake and nutritionStrict decubitus precautionsMonitor anemia. 2/7Persistent left pneumothorax. IR guided pigtail place. CXR shows expansion of the lung Urology consulted -Pt on FlomaxNephrology managing renal issues and elevated K+ - Nephrology discussed POC with CT surgery, no emergent HD needed at this time repeat lab in a.m. if worsen, will plan for TDC. Advance therapies as tolerated Therapy update:Transfers: Mirtha Gait: 400ft Geraldine lives alone and has 5 to 6 stairs to enter house IRF consulted. Will require insurance approval Total time was 35 minutes > 50% with patient performing physical examination, discussing plan of care, goals, therapies, progress, medications, labs, IRF. All questions answeredRehab attestation:Face to face exam completed. Treatment plan discussed with patient. at 0846 [facility] #:[id number] OF REPORTPRProgress [id number]:18:[id number] Available for patient [id number]:46:35 [facility] 2022-07-15 07:30:00 [id number] [place] [address] PATIENT NAME: SHERRI ARCE ADMIT DATE: 07/02/22ACCOUNT NO: [id number] ROOM NO: [id number] AGE: 81 REPORT TYPE: CONSULTATION REPORT SEX: M ADMITTING PHYSICIAN:Jesus Larson MD ATTENDING PHYSICIAN:Srinath Kaur MD CONSULTATION DATE:07/15/2022 CHIEF COMPLAINT: Urinary retention, history of BPH with lower urinary tractsymptoms. HISTORY OF PRESENT ILLNESS: This is a 81-year-old gentleman that underwent aCABG at the end of June. Postoperatively, he developed urinary retentioncausing hydronephrosis. He has had a Waters catheter placed and has been onFlomax, he states at baseline. He has incontinence, difficulty starting poorstream, incomplete emptying. This has been going on for many years. PAST MEDICAL HISTORY: BPH, [place], kidney injury, hyperlipidemia, and coronaryartery disease. PAST SURGICAL HISTORY: CABG. Denies any prostate surgery. FAMILY HISTORY: Noncontributory. SOCIAL HISTORY: Denies any current alcohol, tobacco or drug use. HOME MEDICATIONS: Reviewed, can be found in the MAR. He has been started onFlomax here. REVIEW OF SYSTEMS: A 14-point review of systems obtained is negative other thanthe HPI. PHYSICAL EXAMINATION:VITAL SIGNS: Temperature 98.3, pulse 88, respiratory rate 29, and bloodpressure 110/57.GENERAL: Alert. No acute distress, nontoxic.HEENT: Normocephalic, atraumatic. Extraocular muscles intact.NECK: Supple.HEART: Regular rate and rhythm.LUNGS: Respirations unlabored. Normal chest excursion.ABDOMEN: Soft, nontender, nondistended. Waters catheter in place with clearurine.EXTREMITIES: Moving all extremities well. Creatinine 5.6. LABORATORY DATA: White blood cell count 14, hemoglobin 8.6. ASSESSMENT AND PLAN: This is a 81-year-old gentleman with a history of benignprostatic hyperplasia, lower urinary tract symptoms, worsening lower urinarytract symptoms over the years that after coronary artery bypass graft, was found PATIENT NAME: SHERRI ARCE to have acute kidney injury, bladder-outlet obstruction and severehydronephrosis. He has since been started on Flomax and he is now up andambulating. We discussed options. He would like to do a trial of voiding. Dictated By: Jonathan Harris MD Date Dictated: 07/15/2022 07:30:43Date Transcribed: 07/15/2022 07:42:36/[facility] #: [id number] ID: [id number] and Edited by Jonathan Harris MD On 07/29/22 4:34:23 PM at 0435 PATIENT NAME: SHERRI ARCE :42:0 0G.[id number] for patient [id number] [facility] 2022-07-14 17:26:00 [id number]:26:00 [facility] ([facility])Nephrology Progress NoteREPORT#:[id number] REPORT STATUS: SignedDATE:07/14/22 TIME: 1726 PATIENT: SHERRI ARCE UNIT #: [id number]#: [id number] [address] [birth year] AGE: 81 SEX: M ATTEND: Sarbjit Mcarthur [facility] AUTHOR: Evelina Plaza MD * ALL edits or amendments must be made on the electronic/computer document * SubjectiveChief complaint:has no complaints. Objective GeneralVS/I O:Vital Signs: Date Time Temp Pulse Resp B/P B/P Pulse O2 O2 Flow FiO2 Mean Ox Delivery Rate 02/ 1612 79 24 131/64 91 97 02/06 [...] 81 94 02/05 2008 95 Room air 02/05 1999 98.6 02/05 1999 78 27 117/56 80 95 24 hour I O ending at 0700: 02/06 0700 02/05 1900 Intake Total 500 1200 Output Total 1515 1135 Balance -1015 65 Intake, Oral 500 960 Intake, Oral 240 Supplement Output, Chest 265 260 Tube Drainage Output, Urine 1250 875 PATIENT WEIGHT: Weight (lb): 200Weight (oz): 13.46Weight (kg): 91.100 MedicationsActive Meds + DC'd Last 24 HrsFurosemide (LASIX 40 mg/4 mL INJECTION) 40 MG ONCE ONE IV (UNV) Fentanyl Citrate (SUBLIMAZE) 0 .STK-MED ONE IV (DC) Dextrose/Water (DEXTROSE 10% IN WATER) 250 ML STAT STA IV (DC) Insulin Human Regular (HUMAN INSULIN REG) 10 UNITS STAT STA IV (DC) Midodrine (PROAMATINE) 5 MG 0900,1300,1700 PO Sodium Bicarbonate (SODIUM BICARBONATE) 650 MG BID PO Ipratropium [place] (ATROVENT) 500 MCG RTQ2H PRN PRN INH Lactulose (LACTULOSE) 20 GM DAILY PRN PRN PO Cyanocobalamin (Vitamin B-12 500 mcg tab) 500 MCG DAILY PO Ferrous Sulfate (FERROUS SULFATE) 325 MG DAILY PO Dopamine HCl/Dextrose (DOPamine 400MG/D5W 250ML) 250 ML ASDIR IV Bisacodyl (DULCOLAX) 10 MG ONCE PRN RECTAL Atorvastatin Calcium (LIPITOR) 40 MG 2100 PO Clopidogrel Bisulfate (Plavix) 75 MG DAILY PO Polyethylene Glycol (MIRALAX) 17 GM DAILY PO Miscellaneous Information (PHARMACY TO DOSE/EVALUATE) 1 EACH ASDIR MISC Calcium Chloride (CALCIUM CHLORIDE) 1 GM ASDIR PRN IV Sodium Chloride (SODIUM CHLORIDE 0.9%) 100 MLCalcium Chloride (CALCIUM CHLORIDE) 2 GM ASDIR PRN IV Sodium Chloride (SODIUM CHLORIDE 0.9%) 100 MLMagnesium Sulfate (MAGNESIUM SULFATE 4GM/SWFI 100ML) 100 ML ASDIR PRN IV Magnesium Sulfate (MAGNESIUM SULFATE 2GM/SWFI 50ML) 50 ML ASDIR PRN IV Miscellaneous (PRISMASATE BGK 4/2.5 SOLUTION) 5,000 ML ASDIR DIALYSIS Potassium Chloride (KCL 10MEQ/SWFI 50ML) 50 ML ASDIR PRN IV Sodium Chloride (SODIUM CHLORIDE 0.9%) 2,000 ML ASDIR PRN IV Sodium Phosphate (SODIUM PHOSPHATE) 25 MMOL ASDIR PRN IV Sodium Chloride (SODIUM CHLORIDE 0.9%) 250 MLSodium Phosphate (SODIUM PHOSPHATE) 20 MMOL ASDIR PRN IV Sodium Chloride (SODIUM CHLORIDE 0.9%) 250 MLSodium Phosphate (SODIUM PHOSPHATE) 15 MMOL ASDIR PRN IV Sodium Chloride (SODIUM CHLORIDE 0.9%) 250 MLPantoprazole (PROTONIX) 40 MG DAILY@0600 PO Aspirin (ASPIRIN) 81 MG DAILY PO Vasopressin (VASOSTRICT 20 Unit/NS 100ML) 100 ML ASDIR IV (CKD) Amiodarone HCl (CORDARONE) 200 MG TID PO Docusate Sodium (COLACE) 100 MG BID PO Sennosides (Senna Lax 8.6 MG TABLET) 17.2 MG BEDTIME PO Ipratropium [place] (ATROVENT) 500 MCG RTQ4H INH Acetaminophen (TYLENOL) 650 MG Q4H PRN PRN PO Acetaminophen (TYLENOL) 650 MG Q4H PRN PRN RECTAL Calcium Chloride (CALCIUM CHLORIDE) 1 GM ASDIR PRN IV Dextrose/Water (DEXTROSE 10% IN WATER) 125 ML ASDIR PRN IV (CKD) Dextrose/Water (DEXTROSE 10% IN WATER) 250 ML ASDIR PRN IV (CKD) Epinephrine (ADRENALIN CHLORIDE) 4 MG ASDIR IV Dextrose/Water (DEXTROSE 5% WATER) 246 MLGlucagon (GLUCAGON) 1 MG ASDIR PRN IM Magnesium Sulfate (MAGNESIUM SULFATE 4GM/SWFI 100ML) 100 ML ASDIR PRN IV Magnesium Sulfate (MAGNESIUM SULFATE 2GM/SWFI 50ML) 50 ML ASDIR PRN IV Magnesium Sulfate/Dextrose (MAGNESIUM SULFATE 1GM/D5W 100ML) 100 ML ASDIR PRN IV Nitroglycerin/Dextrose (NITROGLYCERIN 50,000MCG/D5W 250ML) 250 ML ASDIR IV Norepinephrine Bitartrate (NOREPINEPHRINE 8 MG/NS 250 ML) 250 ML TITRATE IV Ondansetron HCl (ZOFRAN) 4 MG Q6H PRN PRN IV Oxycodone HCl (ROXICODONE) 5 MG Q4H PRN PRN PO (DC) Oxycodone HCl (ROXICODONE) 10 MG Q4H PRN PRN PO (DC) Potassium Chloride (KCL 20MEQ/SWFI 100ML) 100 ML ASDIR PRN IV Sodium Bicarbonate (SODIUM BICARBONATE) 50 MEQ ASDIR PRN IV Sodium Chloride (SODIUM CHLORIDE 0.9%) 250 ML Q24H IV (DC) Albumin Human (ALBUMINAR-25%) 12.5 GM ASDIR PRN IV Heparin Sodium (Porcine) (HEPARIN SODIUM) 3,000 UNIT ASDIR PRN DIALYSIS Lidocaine HCl (LIDOCAINE HCL/PF) 0.5 ML ASDIR PRN I-DERMAL (CKD) Mannitol (Mannitol 20%) 12.5 GM ASDIR PRN IV Sodium Chloride (SODIUM CHLORIDE 0.9%) 2,000 ML ASDIR PRN IV Tamsulosin HCl (Flomax 0.4 mg) 0.4 MG BEDTIME PO Physical ExamGeneral appearance: alert, awakeHead/eyes: atraumatic, normocephalicENT: moist mucous membranes, normal noseNeck: non-tender, no JVDExtremities: no edema, no swellingNeuro/GIFT OFFICER: alert, oriented X 3, normal speechSkin: dry, intact ResultsFindings/Data:Laboratory Tests 07/14 07/14 1043 0337 Chemistry Sodium [...] (Auto) (14.0 - 32.0 %) 5.1 L Starke % (Auto) (4.8 - 9.0 %) 10.1 H Eos % (Auto) (0.3 - 3.7 %) 7.1 H Baso % (Auto) (0.0 - 2.0 %) 0.5 Neut # (Auto) (2.0 - 7.6 x10 3/uL) 9.80 H Lymph # (Auto) (1.0 - 3.8 x10 3/uL) 0.67 L Starke # (Auto) (0.1 - 0.8 x10 3/uL) 1.32 H Eos # (Auto) (0.0 - 0.2 x10 3/uL) 0.92 H Baso # (Auto) (0.0 - 0.2 x10 3/uL) 0.07 Abs Immat Gran (auto) (0.00 - 0.03 x10 3/uL) 0.24 H Add Manual Diff NO Immature Gran % (0.0 - 2.0 %) 1.8 Nucleated RBC % (0 - 0 %) 0.0 Nucleated RBCs # (Man) (0.0 - 0.1 x10 3/uL) 0.00 Radiology data:Recent Impressions:RADIOLOGY - XR CHEST 1 V 07/14 0627 Report Impression - Status: SIGNED Entered: 07/14/2022 0915 IMPRESSION: 1. Moderate left apical pneumothorax, similar to prior radiograph. Left chest tube in place. 2. Unchanged small bilateral pleural effusions with bibasilar airspace disease. Impression By: [email or web address] - Sheldon Kenney M.D.RADIOLOGY - XR CHEST 1 V 07/14 1411 Report Impression - Status: SIGNED Entered: 07/14/2022 1509 IMPRESSION: Interval placement of left chest tube near the apex with decreased size of left pneumothorax now small. Otherwise, stable exam. Impression By: [email or web address] - Ranjan Sesay M.D.CAT SCAN - CT GUID [facility] (Biopsy/Asp) 07/14 1509 Report Impression - Status: SIGNED Entered: 07/14/2022 7259 IMPRESSION: CT-guided left chest tube placement.Impression By: [email or web address] - Hansa Block M.D. Treatment Prophylaxis Treatment ProphylaxisDrain(s)/tube(s): Drain(s)/tube(s): chest Diagnosis, Assessment PlanFree Text A P:Assessment:1-CLAUDETTE likely from urinary retention. oliguric CLAUDETTE now post op, from shock!2- non-STEMI: multivessel disease w main left. S/P CABG X5 on - BPH. Waters catheter is in place.4-severe bilateral hydronephrosis5- shock : Cardiogenic6-hyperlipidemia Plan:- unknown Scr baseline but ultrasound showed MRD. - Ultrasound showed severe bilateral hydronephrosis. Continue Waters catheter. Urology consulted. - He underwent LHC on 07/03. Started on HD without UF on 07/04. - s/p CABG X5 on 07/08- on dopamine. -Excellent urine output- s/p HD 07/12. -Lasix 40 mg IV x1- discussed with CT surgery, no emergent HD need today, repeat lab in a.m. if worsen, will plan for TDC. Consultants: cardiology, cardiovascular surgery, nephrology at 1730 RPT #:[id number] OF REPORTPRProgress [id number]:[id number] Available for patient [id number]:30:26 [facility] 2022-07-14 16:24:00 [id number] [facility] ([facility])Hospitalist Progress NoteREPORT#:[id number] REPORT STATUS: SignedDATE:07/14/22 TIME: 1623 PATIENT: SHERRI ARCE UNIT #: [id number]#: [id number] [address] [birth year] AGE: 81 SEX: M ATTEND: Sarbjit Mcarthur AUTHOR: Sarbjit Mcarthur MD * ALL edits or amendments must be made on the electronic/computer document * SubjectiveChief complaint:Status post CABG x5 on 07/09, Doing well today. Ambulated around the unit.HPI:81 y/o man with PMHx of HTN, Dyslipidemia that [facility] with chest pain and found to have a NSTEMI and also acute renal failure. Underwent cardiac cath yesterday and found to have severe CAD including left main disease. Transfer here for CABG evaluation. He also underwent HD Thursday and Thursday of this week. HD catheter was place at [facility]. Currently not having any chest pain. Had chest pain with SOB when he presentted to the previous hospital. Objective GeneralVS/I O:Vital Signs: Date Time Temp Pulse Resp B/P B/P Pulse O2 O2 Flow FiO2 Mean Ox Delivery Rate 02/06 1612 79 24 131/64 91 97 [...] 02/06 0000 82 26 112/60 79 93 07/13 2330 83 23 93 07/13 2300 83 21 116/55 79 94 07/13 2230 79 25 92 07/13 2200 76 25 117/58 81 93 07/13 2130 77 24 94 07/13 2100 78 26 118/57 81 94 07/13 2007 95 Room air 07/13 1999 98.6 07/13 1999 78 27 117/56 80 95 24 hour I O ending at 0700: 07/14 0700 07/13 1900 Intake Total 500 1200 Output Total 1515 1135 Balance -1015 65 Intake, Oral 500 960 Intake, Oral 240 Supplement Output, Chest 265 260 Tube Drainage Output, Urine 1250 875 PATIENT WEIGHT: Weight (lb): 200Weight (oz): 13.46Weight (kg): 91.100 Physical ExamGeneral appearance: alert, awake, orientedHead/Eyes: atraumatic, EOMI, normal conjunctiva/sclera, normocephalic, PERRLAENT: moist mucosal membranesNeck: full range of motion, no bruit/NL carotids, no JVDCardiovascular: normal heart sounds, regular rate rhythmRespiratory: aerating well, clear to auscultation, symmetric expansion, no distressAbdomen: non-tender, normal bowel sounds, soft, no distention, no guarding, no reboundExtremities: moves all, no cyanosis, no edemaMusculoskeletal: normal inspectionNeuro/GIFT OFFICER: alert, oriented X 3, normal speech, no motor deficits, no sensory deficitsSkin: intact, normal color, no rashPsychiatry: normal affect ResultsFindings/Data:Laboratory Tests 07/14 07/14 1043 0337 Chemistry Sodium [...] (Auto) (14.0 - 32.0 %) 5.1 L Starke % (Auto) (4.8 - 9.0 %) 10.1 H Eos % (Auto) (0.3 - 3.7 %) 7.1 H Baso % (Auto) (0.0 - 2.0 %) 0.5 Neut # (Auto) (2.0 - 7.6 x10 3/uL) 9.80 H Lymph # (Auto) (1.0 - 3.8 x10 3/uL) 0.67 L Starke # (Auto) (0.1 - 0.8 x10 3/uL) 1.32 H Eos # (Auto) (0.0 - 0.2 x10 3/uL) 0.92 H Baso # (Auto) (0.0 - 0.2 x10 3/uL) 0.07 Abs Immat Gran (auto) (0.00 - 0.03 x10 3/uL) 0.24 H Add Manual Diff NO Immature Gran % (0.0 - 2.0 %) 1.8 Nucleated RBC % (0 - 0 %) 0.0 Nucleated RBCs # (Man) (0.0 - 0.1 x10 3/uL) 0.00 Radiology data:Recent Impressions:RADIOLOGY - XR CHEST 1 V 07/14 0627 Report Impression - Status: SIGNED Entered: 07/14/2022 0915 IMPRESSION: 1. Moderate left apical pneumothorax, similar to prior radiograph. Left chest tube in place. 2. Unchanged small bilateral pleural effusions with bibasilar airspace disease. Impression By: [email or web address] - Sheldon Kenney M.D.RADIOLOGY - XR CHEST 1 V 07/14 1411 Report Impression - Status: SIGNED Entered: 07/14/2022 1509 IMPRESSION: Interval placement of left chest tube near the apex with decreased size of left pneumothorax now small. Otherwise, stable exam. Impression By: [email or web address] - Ranjan Sesay M.D.CAT SCAN - CT GUID [facility] (Biopsy/Asp) 07/14 1509 Report Impression - Status: SIGNED Entered: 07/14/2022 1519 IMPRESSION: CT-guided left chest tube placement.Impression By: [email or web address] - Hansa Block M.D. Treatment Prophylaxis Treatment ProphylaxisDrain(s)/tube(s): Drain(s)/tube(s): chest Diagnosis, Assessment PlanConsultants: cardiology, cardiovascular surgery, nephrology Free Text DxA P NotesFree text DxA P notes:Assessment and plans:CAD (coronary artery disease) patient presented with NSTEMI and found to hve severe CAD. Cardiac cath shows: Left Main - Distal 70% LAD - Proximal 80% with another 60% and 70% lessions Cir - Proximal 80%,mid 80-90%, Distal 70% and OM 60% RCA - large dominant with proximal 40%, Mid 60%. Cardiology and CV surgeon consulted echo: ef 30-34%, mod hypokinesis of entire myocardium, grade 1 diastolic dysfunction Carotid Dopplers negative PFTs PT/OT s/p CABG X5 on 07/08 Patient on ASA, plavix, BB and Statin on amiodarone Beta-tomas as tolerated for low BP, Acute systolic heart failure Echocardiac with estimated LVEF of 30 to 34% with grade 1 diastolic dysfunction-s/p Lasix 20 mg twice daily 07/05 -on metoprolol 12.5 mg bid on hold now, BP low-no ACEI/ spironolactione for CLAUDETTE-Strict I's and O's, daily weights-Start GDMT prior to discharge CLAUDETTE (acute kidney injury) No prior Hx of renal disease. hx of BPH and treated with Fosamax w/o improvement nd continue to have difficulty urinating. On admission was found to be on acute renal filaure and had received HD twice prior to arrival here (thursday and thursday). Creatinine this am was 7.4, BUN 68 * Probably due to obstructive uropathy* waters already in place* Nephrology consuled for HD On daily hemodialysis as per nephrology Anemia:-Hemoglobin dropped to 6.5 s/p CABG 2 PRBC BT ordered 07/09 Monitor H H Leukocytosis:-Afebrile Monitor WBC count HTN (hypertension) patient on metoprolol 12.5 mg BID, will adjust as needed On labetalol/hydralazine as needed Dyslipidemia on Lipitor 40mg po daliy. BPH (benign prostatic hyperplasia) Started on Flomax at the previous hospital, will continue with it. Waters catheter in place, continue Waters catheter as per nephrology 07/05 Goiter Hx of Goiter and surgical resection. TSH 3.33, within normal limits. Patient is not on Thyroid medication. anemia of chronic kidney disease Hemoglobin 8.3, monitor Hypokalemia resolved UTI continue Rocephin for empiric treatment pending results of urine culture No growth for 48 hours DVT prophylaxis: Heparin 5000 units every 8 hoursDiet: Cardiac dietCODE STATUS: Full code Disposition: Status post CABG x5 on 07/09, hemodialysis as per nephrology. Worked with PT in his room, on 2 L oxygen via nasal cannula. PT/OT on board. Rehab consulted. Continue CVICU care. Quality: Gen Med Crit Care VTE ProphylaxisVTE prophylaxis initiated: yes Current MedicationsCurrent medication review:I attest that the foregoing medication list in the medical record is true, accurate, and complete to the best of my knowledge. Advanced Care Plan 65 or OlderDiscussed with: patientDiscussion included: living will (none), power of school commissioner (none), code status (full code) at 1625 RPT #:[id number] OF REPORTPRProgress [id number] Available for patient [id number] [facility] 2022-07-14 15:59:00 [id number] [facility] ([facility])Cardiology Progress NoteREPORT#:[id number] REPORT STATUS: SignedDATE:07/14/22 TIME: 1559 PATIENT: SHERRI ARCE UNIT #: [id number]#: [id number] [address] [birth year] AGE: 81 SEX: M ATTEND: Srinath Kaur MDA AUTHOR: Sonya Satcy AGACNP * ALL edits or amendments must be made on the electronic/computer document * SubjectiveComments:Doing better. Objective GeneralVS/I O:24 hour I O ending at 0700: 0206 0700 02/05 1900 Intake Total 500 1200 Output Total 1515 1135 Balance -1015 65 Intake, Oral 500 960 Intake, Oral 240 Supplement Output, Chest 265 260 Tube Drainage Output, Urine 1250 875 Vital Signs: Date Time Temp Pulse Resp B/P B/P Pulse O2 O2 Flow FiO2 Mean Ox Delivery Rate 02/06 1511 [...] 02/06 0100 81 24 121/58 83 88 07/14 0030 82 27 93 / 0000 82 26 112/60 79 93 07/13 2330 83 23 93 07/13 2300 83 21 116/55 79 94 07/13 2230 79 25 92 / 2200 76 25 117/58 81 93 / 2130 77 24 94 / 2100 78 26 118/57 81 94 07/13 2007 95 Room air 07/13 1999 37.0 07/13 1999 78 27 117/56 80 95 07/13 1600 76 37 122/65 89 94 PATIENT WEIGHT: Weight (lb): 200Weight (oz): 13.46Weight (kg): 91.100 Medications:Active Meds + DC'd Last 24 HrsFentanyl Citrate (SUBLIMAZE) 0 .STK-MED ONE IV (DC) Dextrose/Water (DEXTROSE 10% IN WATER) 250 ML STAT STA IV (DC) Insulin Human Regular (HUMAN INSULIN REG) 10 UNITS STAT STA IV (DC) Midodrine (PROAMATINE) 5 MG 0900,1300,1700 PO Sodium Bicarbonate (SODIUM BICARBONATE) 650 MG BID PO Ipratropium [place] (ATROVENT) 500 MCG RTQ2H PRN PRN INH Lactulose (LACTULOSE) 20 GM DAILY PRN PRN PO Cyanocobalamin (Vitamin B-12 500 mcg tab) 500 MCG DAILY PO Ferrous Sulfate (FERROUS SULFATE) 325 MG DAILY PO Dopamine HCl/Dextrose (DOPamine 400MG/D5W 250ML) 250 ML ASDIR IV Bisacodyl (DULCOLAX) 10 MG ONCE PRN RECTAL Atorvastatin Calcium (LIPITOR) 40 MG 2100 PO Clopidogrel Bisulfate (Plavix) 75 MG DAILY PO Polyethylene Glycol (MIRALAX) 17 GM DAILY PO Miscellaneous Information (PHARMACY TO DOSE/EVALUATE) 1 EACH ASDIR MISC Calcium Chloride (CALCIUM CHLORIDE) 1 GM ASDIR PRN IV Sodium Chloride (SODIUM CHLORIDE 0.9%) 100 MLCalcium Chloride (CALCIUM CHLORIDE) 2 GM ASDIR PRN IV Sodium Chloride (SODIUM CHLORIDE 0.9%) 100 MLMagnesium Sulfate (MAGNESIUM SULFATE 4GM/SWFI 100ML) 100 ML ASDIR PRN IV Magnesium Sulfate (MAGNESIUM SULFATE 2GM/SWFI 50ML) 50 ML ASDIR PRN IV Miscellaneous (PRISMASATE BGK 4/2.5 SOLUTION) 5,000 ML ASDIR DIALYSIS Potassium Chloride (KCL 10MEQ/SWFI 50ML) 50 ML ASDIR PRN IV Sodium Chloride (SODIUM CHLORIDE 0.9%) 2,000 ML ASDIR PRN IV Sodium Phosphate (SODIUM PHOSPHATE) 25 MMOL ASDIR PRN IV Sodium Chloride (SODIUM CHLORIDE 0.9%) 250 MLSodium Phosphate (SODIUM PHOSPHATE) 20 MMOL ASDIR PRN IV Sodium Chloride (SODIUM CHLORIDE 0.9%) 250 MLSodium Phosphate (SODIUM PHOSPHATE) 15 MMOL ASDIR PRN IV Sodium Chloride (SODIUM CHLORIDE 0.9%) 250 MLPantoprazole (PROTONIX) 40 MG DAILY@0600 PO Aspirin (ASPIRIN) 81 MG DAILY PO Vasopressin (VASOSTRICT 20 Unit/NS 100ML) 100 ML ASDIR IV (CKD) Amiodarone HCl (CORDARONE) 200 MG TID PO Docusate Sodium (COLACE) 100 MG BID PO Sennosides (Senna Lax 8.6 MG TABLET) 17.2 MG BEDTIME PO Ipratropium [place] (ATROVENT) 500 MCG RTQ4H INH Acetaminophen (TYLENOL) 650 MG Q4H PRN PRN PO Acetaminophen (TYLENOL) 650 MG Q4H PRN PRN RECTAL Calcium Chloride (CALCIUM CHLORIDE) 1 GM ASDIR PRN IV Dextrose/Water (DEXTROSE 10% IN WATER) 125 ML ASDIR PRN IV (CKD) Dextrose/Water (DEXTROSE 10% IN WATER) 250 ML ASDIR PRN IV (CKD) Epinephrine (ADRENALIN CHLORIDE) 4 MG ASDIR IV Dextrose/Water (DEXTROSE 5% WATER) 246 MLGlucagon (GLUCAGON) 1 MG ASDIR PRN IM Magnesium Sulfate (MAGNESIUM SULFATE 4GM/SWFI 100ML) 100 ML ASDIR PRN IV Magnesium Sulfate (MAGNESIUM SULFATE 2GM/SWFI 50ML) 50 ML ASDIR PRN IV Magnesium Sulfate/Dextrose (MAGNESIUM SULFATE 1GM/D5W 100ML) 100 ML ASDIR PRN IV Nitroglycerin/Dextrose (NITROGLYCERIN 50,000MCG/D5W 250ML) 250 ML ASDIR IV Norepinephrine Bitartrate (NOREPINEPHRINE 8 MG/NS 250 ML) 250 ML TITRATE IV Ondansetron HCl (ZOFRAN) 4 MG Q6H PRN PRN IV Oxycodone HCl (ROXICODONE) 5 MG Q4H PRN PRN PO (DC) Oxycodone HCl (ROXICODONE) 10 MG Q4H PRN PRN PO (DC) Potassium Chloride (KCL 20MEQ/SWFI 100ML) 100 ML ASDIR PRN IV Sodium Bicarbonate (SODIUM BICARBONATE) 50 MEQ ASDIR PRN IV Sodium Chloride (SODIUM CHLORIDE 0.9%) 250 ML Q24H IV (DC) Albumin Human (ALBUMINAR-25%) 12.5 GM ASDIR PRN IV Heparin Sodium (Porcine) (HEPARIN SODIUM) 3,000 UNIT ASDIR PRN DIALYSIS Lidocaine HCl (LIDOCAINE HCL/PF) 0.5 ML ASDIR PRN I-DERMAL (CKD) Mannitol (Mannitol 20%) 12.5 GM ASDIR PRN IV Sodium Chloride (SODIUM CHLORIDE 0.9%) 2,000 ML ASDIR PRN IV Tamsulosin HCl (Flomax 0.4 mg) 0.4 MG BEDTIME PO Status post:07/08/22 CABG x 5 (MISTRY-LAD, SVG-Ladonna, SVG-OM1< SVG-OM3, SVG-PDA) ALAA Physical ExamGeneral appearance: alert, awake, oriented, no acute distress, pleasant, conversationalENT: moist mucosal membranesNeck: no JVDCardiovascular: CV assessment: regular rate and rhythm, no murmurRespiratory: decreased breath sounds, no distressAbdomen: soft, non-tender, normal bowel sounds, no distention, no guardingUpper extremity: UE assessment: normal temperature, no edemaLower extremity: LE assessment: edema (RLE trace), normal temperature, no edemaMusculoskeletal: normal inspectionNeuro/GIFT OFFICER: alert, oriented X 3, normal speechSkin: dryPsychiatry: normal affect ResultsFindings/Data:Laboratory Tests 07/14 07/14 1043 0337 Chemistry Sodium [...] (Auto) (14.0 - 32.0 %) 5.1 L Starke % (Auto) (4.8 - 9.0 %) 10.1 H Eos % (Auto) (0.3 - 3.7 %) 7.1 H Baso % (Auto) (0.0 - 2.0 %) 0.5 Neut # (Auto) (2.0 - 7.6 x10 3/uL) 9.80 H Lymph # (Auto) (1.0 - 3.8 x10 3/uL) 0.67 L Starke # (Auto) (0.1 - 0.8 x10 3/uL) 1.32 H Eos # (Auto) (0.0 - 0.2 x10 3/uL) 0.92 H Baso # (Auto) (0.0 - 0.2 x10 3/uL) 0.07 Abs Immat Gran (auto) (0.00 - 0.03 x10 3/uL) 0.24 H Add Manual Diff NO Immature Gran % (0.0 - 2.0 %) 1.8 Nucleated RBC % (0 - 0 %) 0.0 Nucleated RBCs # (Man) (0.0 - 0.1 x10 3/uL) 0.00 Laboratory Tests 07/14 0337 Chemistry Magnesium (1.80 - 2.40 mg/dL) 2.40 Radiology data:Recent Impressions:RADIOLOGY - XR CHEST 1 V 07/14 06 Report Impression - Status: SIGNED Entered: 07/14/2022 0915 IMPRESSION: 1. Moderate left apical pneumothorax, similar to prior radiograph. Left chest tube in place. 2. Unchanged small bilateral pleural effusions with bibasilar airspace disease. Impression By: [email or web address] - Sheldon Kenney M.D.RADIOLOGY - XR CHEST 1 V 07/14 1411 Report Impression - Status: SIGNED Entered: 07/14/2022 1509 IMPRESSION: Interval placement of left chest tube near the apex with decreased size of left pneumothorax now small. Otherwise, stable exam. Impression By: [email or web address] - Ranjan Sesay M.D.CAT SCAN - CT GUID NEL [facility] (Biopsy/Asp) 07/14 1509 Report Impression - Status: SIGNED Entered: 07/14/2022 1519 IMPRESSION: CT-guided left chest tube placement.Impression By: [email or web address] Yasmin Block M.D. Telemetry Interpretation:sinus rhythmEcho results: 1. Left ventricle: The cavity size is at the upper limits of normal. Wall thickness is mildly increased. Systolic function is severely reduced. The estimated ejection fraction is 20-24%. Severe hypokinesis of the entire myocardium. Features are consistent with a pseudonormal left ventricular filling pattern, with concomitant abnormal relaxation and increased filling pressure (grade 2 diastolic dysfunction).2. Right ventricle: Systolic function is mildly reduced.3. Pericardium, extracardiac: A trivial pericardial effusion is identified along the right ventricular free wall. There is a right pleural effusion. Diagnosis, Assessment PlanProblem List/A P: 1. HTN (hypertension) 2. CLAUDETTE (acute kidney injury) 3. CAD (coronary artery disease) 4. Dyslipidemia 5. BPH (benign prostatic hyperplasia) Plan discussed with: patient, consultants, nurse Free Text DxA P NotesFree Text DxA P Notes:Mr. Arce is a pleasant 81 y/o M w/ PMHx: HTN, HLD presented to [facility] on 06/28/22 for chest pain and sob. He was diagnosed NSTEMI w/ [...] and diffuse 50-60% dRCA. He transferred to [facility] for CABG. - CAD/NSTEMI s/p CABG CABG x 5 (MISTRY-LAD, SVG-Ladonna, SVG-OM1, SVG-OM3, SVG-PDA), ALAA On statins, BB, ASA, plavix repeat echo 07/11/21 LVEF 20-24%, preoperative Echo LVEF was 30-34%, Postop care per CTS 07/14/22 - left apical pneumothorax s/p IR- guided pigtail chest tube placement off pressors - Ischemic CMP with Acute Systolic and Diastolic HF LVEF 20-24% strict I/Os, daily weights, fluid restriction, low NA diet diuresis per Nephrology no charly/arb/aldactone due to CLAUDETTE continue low dose BB, no ACEI, ARB, ARNI d/t CLAUDETTE and bordeline hypotension repeat echo 07/11/21 LVEF 20-24%, preoperative Echo LVEF was 30-34% - CLAUDETTE - per nephrology likely from obstructive uropathy. Renal ultrasound showed severe thickening of the bladder, cholelitiasis. - HTN. hypotension post-op off Pressors. Midodrine 5mg po tid. - HLD. On statins. - Anemia. monitor at 1613 at 1057 RPT #:[id number] OF REPORTPRProgress [id number]:[id number] Available for patient [id number] [facility] 2022-07-14 14:30:00 [id number] [facility] ([facility])Critical Care Progress NoteREPORT#:[id number] REPORT STATUS: SignedDATE:07/14/22 TIME: 1430 PATIENT: SHERRI ARCE UNIT #: [id number]#: [id number] [address] [birth year] AGE: 81 SEX: M ATTEND: Sarbjit Mcarthur [facility] AUTHOR: Jana Mittal MD * ALL edits or amendments must be made on the electronic/computer document * SubjectiveChief complaint:CABGHPI:This is 81 years old male with medical history significant for HTN and dyslipidemia who presented to [facility] Thursday06/28/22 with chest pain and found to have a NSTEMI and also acute renal failure. He underwent cardiac cath and was found to have severe CAD including left main disease with EF of 30 to 35% and ischemic cardiomyopathy. Transfer here for CABG evaluation. CV surgery were consulted and the patient earlier today underwent CABG x 5 (MISTRY-LAD, SVG-Ladonna, SVG-OM1< SVG-OM3, SVG-PDA) and ALAA. His intraoperative course was without significant occurrence. The patient was brought to CVICU intubated and ventilated on milrinone drip, norepinephrine drip, epinephrine drip and vasopressin drip.His initial ABG showed metabolic acidosis and he received 2 A of sodium bicarb and 1 g of calcium.The patient started to wake up later in the evening but he looked weak, so he was reversed with neostigmine and glycopyrrolate. His motor strength improved significantly after that and his spontaneous breathing trial was good on the following ABG showed some metabolic acidosis. The patient will be extubated to a BiPAP as his CO2 was high on the ABG. Comments:Interval history- Patient with persistent pneumothorax, will get IR pigtail making good urine Objective GeneralVS/I OLast Documented: Result Date Time Pulse Ox 98 07/14 1202 B/P 109/60 07/14 1202 O2 Delivery Nasal cannula 07/14 1202 Pulse 80 07/14 1202 Resp 15 07/14 1202 Temp 36.6 07/14 1200 O2 Flow Rate 3 07/14 1151 B/P Mean 72 02/06 0800 FiO2 21 07/14 0754 24 hour I O ending at 0700: 07/14 0700 07/13 1900 Intake Total 500 1200 Output Total 1515 1135 Balance -1015 65 Intake, Oral 500 960 Intake, Oral 240 Supplement Output, Chest 265 260 Tube Drainage Output, Urine 1250 875 PATIENT WEIGHT: Weight (lb): 200Weight (oz): 13.46Weight (kg): 91.100 Medications:Active Meds + DC'd Last 24 HrsFentanyl Citrate (SUBLIMAZE) 0 .STK-MED ONE .ROUTE (DC) Dextrose/Water (DEXTROSE 10% IN WATER) 250 ML STAT STA IV (DC) Insulin Human Regular (HUMAN INSULIN REG) 10 UNITS STAT STA IV (DC) Midodrine (PROAMATINE) 5 MG 0900,1300,1700 PO Sodium Bicarbonate (SODIUM BICARBONATE) 650 MG BID PO Ipratropium [place] (ATROVENT) 500 MCG RTQ2H PRN PRN INH Lactulose (LACTULOSE) 20 GM DAILY PRN PRN PO Cyanocobalamin (Vitamin B-12 500 mcg tab) 500 MCG DAILY PO Ferrous Sulfate (FERROUS SULFATE) 325 MG DAILY PO Dopamine HCl/Dextrose (DOPamine 400MG/D5W 250ML) 250 ML ASDIR IV Bisacodyl (DULCOLAX) 10 MG ONCE PRN RECTAL Atorvastatin Calcium (LIPITOR) 40 MG 2100 PO Clopidogrel Bisulfate (Plavix) 75 MG DAILY PO Polyethylene Glycol (MIRALAX) 17 GM DAILY PO Miscellaneous Information (PHARMACY TO DOSE/EVALUATE) 1 EACH ASDIR MISC Calcium Chloride (CALCIUM CHLORIDE) 1 GM ASDIR PRN IV Sodium Chloride (SODIUM CHLORIDE 0.9%) 100 MLCalcium Chloride (CALCIUM CHLORIDE) 2 GM ASDIR PRN IV Sodium Chloride (SODIUM CHLORIDE 0.9%) 100 MLMagnesium Sulfate (MAGNESIUM SULFATE 4GM/SWFI 100ML) 100 ML ASDIR PRN IV Magnesium Sulfate (MAGNESIUM SULFATE 2GM/SWFI 50ML) 50 ML ASDIR PRN IV Miscellaneous (PRISMASATE BGK 4/2.5 SOLUTION) 5,000 ML ASDIR DIALYSIS Potassium Chloride (KCL 10MEQ/SWFI 50ML) 50 ML ASDIR PRN IV Sodium Chloride (SODIUM CHLORIDE 0.9%) 2,000 ML ASDIR PRN IV Sodium Phosphate (SODIUM PHOSPHATE) 25 MMOL ASDIR PRN IV Sodium Chloride (SODIUM CHLORIDE 0.9%) 250 MLSodium Phosphate (SODIUM PHOSPHATE) 20 MMOL ASDIR PRN IV Sodium Chloride (SODIUM CHLORIDE 0.9%) 250 MLSodium Phosphate (SODIUM PHOSPHATE) 15 MMOL ASDIR PRN IV Sodium Chloride (SODIUM CHLORIDE 0.9%) 250 MLPantoprazole (PROTONIX) 40 MG DAILY@0600 PO Aspirin (ASPIRIN) 81 MG DAILY PO Vasopressin (VASOSTRICT 20 Unit/NS 100ML) 100 ML ASDIR IV (CKD) Amiodarone HCl (CORDARONE) 200 MG TID PO Docusate Sodium (COLACE) 100 MG BID PO Sennosides (Senna Lax 8.6 MG TABLET) 17.2 MG BEDTIME PO Ipratropium [place] (ATROVENT) 500 MCG RTQ4H INH Acetaminophen (TYLENOL) 650 MG Q4H PRN PRN PO Acetaminophen (TYLENOL) 650 MG Q4H PRN PRN RECTAL Calcium Chloride (CALCIUM CHLORIDE) 1 GM ASDIR PRN IV Dextrose/Water (DEXTROSE 10% IN WATER) 125 ML ASDIR PRN IV (CKD) Dextrose/Water (DEXTROSE 10% IN WATER) 250 ML ASDIR PRN IV (CKD) Epinephrine (ADRENALIN CHLORIDE) 4 MG ASDIR IV Dextrose/Water (DEXTROSE 5% WATER) 246 MLGlucagon (GLUCAGON) 1 MG ASDIR PRN IM Magnesium Sulfate (MAGNESIUM SULFATE 4GM/SWFI 100ML) 100 ML ASDIR PRN IV Magnesium Sulfate (MAGNESIUM SULFATE 2GM/SWFI 50ML) 50 ML ASDIR PRN IV Magnesium Sulfate/Dextrose (MAGNESIUM SULFATE 1GM/D5W 100ML) 100 ML ASDIR PRN IV Nitroglycerin/Dextrose (NITROGLYCERIN 50,000MCG/D5W 250ML) 250 ML ASDIR IV Norepinephrine Bitartrate (NOREPINEPHRINE 8 MG/NS 250 ML) 250 ML TITRATE IV Ondansetron HCl (ZOFRAN) 4 MG Q6H PRN PRN IV Oxycodone HCl (ROXICODONE) 5 MG Q4H PRN PRN PO (DC) Oxycodone HCl (ROXICODONE) 10 MG Q4H PRN PRN PO (DC) Potassium Chloride (KCL 20MEQ/SWFI 100ML) 100 ML ASDIR PRN IV Sodium Bicarbonate (SODIUM BICARBONATE) 50 MEQ ASDIR PRN IV Sodium Chloride (SODIUM CHLORIDE 0.9%) 250 ML Q24H IV (DC) Albumin Human (ALBUMINAR-25%) 12.5 GM ASDIR PRN IV Heparin Sodium (Porcine) (HEPARIN SODIUM) 3,000 UNIT ASDIR PRN DIALYSIS Lidocaine HCl (LIDOCAINE HCL/PF) 0.5 ML ASDIR PRN I-DERMAL (CKD) Mannitol (Mannitol 20%) 12.5 GM ASDIR PRN IV Sodium Chloride (SODIUM CHLORIDE 0.9%) 2,000 ML ASDIR PRN IV Tamsulosin HCl (Flomax 0.4 mg) 0.4 MG BEDTIME PO ResultsFindings/data:Laboratory Tests 07/14 07/14 1043 0337 Chemistry Sodium [...] (Auto) (14.0 - 32.0 %) 5.1 L Starke % (Auto) (4.8 - 9.0 %) 10.1 H Eos % (Auto) (0.3 - 3.7 %) 7.1 H Baso % (Auto) (0.0 - 2.0 %) 0.5 Neut # (Auto) (2.0 - 7.6 x10 3/uL) 9.80 H Lymph # (Auto) (1.0 - 3.8 x10 3/uL) 0.67 L Starke # (Auto) (0.1 - 0.8 x10 3/uL) 1.32 H Eos # (Auto) (0.0 - 0.2 x10 3/uL) 0.92 H Baso # (Auto) (0.0 - 0.2 x10 3/uL) 0.07 Abs Immat Gran (auto) (0.00 - 0.03 x10 3/uL) 0.24 H Add Manual Diff NO Immature Gran % (0.0 - 2.0 %) 1.8 Nucleated RBC % (0 - 0 %) 0.0 Nucleated RBCs # (Man) (0.0 - 0.1 x10 3/uL) 0.00 Laboratory Tests 07/14/22 1043:[Embedded Image Not Available] 07/14/22 0337:[Embedded Image Not Available] Radiology dataRecent Impressions:RADIOLOGY - XR CHEST 1 V 07/14 626 Report Impression - Status: SIGNED Entered: 07/14/2022 0915 IMPRESSION: 1. Moderate left apical pneumothorax, similar to prior radiograph. Left chest tube in place. 2. Unchanged small bilateral pleural effusions with bibasilar airspace disease. Impression By: Tere - Sheldon Kenney M.D. Free Text Obj NotesFree Text Obj Notes:General appearance: Elderly male in no acute distress, interactive and conversationalHEENT: atraumatic, normocephalic, moist mucosal membranesNeck: full range of motion, supple/no meningismusCardiovascular: S1-S2 regular rate and rhythmRespiratory: symmetric expansion, no acute respiratory distressAbdomen: soft, non-tender, no distention, no guardingGenitourinary: waters with clear urineExtremities: pedal pulses palpable, moves all, no cyanosis, mild LE edema, right>leftMusculoskeletal: normal inspection, no muscle spasmNeuro/GIFT OFFICER: alert and oriented x3, CNII-XII grossly intact, no motor deficitsSkin: dry, intact and clean surgery dressing Treatment Prophylaxis Treatment ProphylaxisDrain(s)/tube(s): Drain(s)/tube(s): chest Diagnosis, Assessment PlanProblem list/A P: 1. CLAUDETTE (acute kidney injury) 2. CAD (coronary artery disease) 3. Goiter 4. BPH (benign prostatic hyperplasia) 5. Dyslipidemia 6. HTN (hypertension) Free text A P:73-year-old male with Acute pulmonary insufficiency following thoracic surgeryStatus post CABG x 5 (MISTRY-LAD, SVG-Ladonna, SVG-OM1< SVG-OM3, SVG-PDA) and ALAAAcute blood loss anemiaHypotensionIschemic cardiomyopathy, EF 30 to 34%Multivessel CADAKI on hemodialysis Continue mechanical ventilation, vent settings reviewedTitrate FiO2 to keep saturation more than 90%.Spontaneous breathing trial as soon as possibleWean to extubateFollow ABGs and CXRsABG shows metabolic acidosis. Patient received 2 A of sodium bicarb and 1 g of calciumKeep off sedationJudicious pain controlMilrinone drip 0.25Epinephrine dripNorepinephrine dripVasopressin dripTitrate drips to keep MAP more than 65Wean milrinone off first per CV surgeryMinimize fluids per CV surgeryAspirin and PlavixAtorvastatinMetoprololFollow lactate levelMonitor chest tube outputHemodialysis per nephrologyMonitor urine output and kidney functionMonitor and replete electrolytesPerioperative antibioticsCardiac diet with bowel regimen once extubatedBG control with insulin gtt per protocolPT/OTVTE prophylaxis.Stress ulcer prophylaxis.Discussed with CV surgery, anesthesia and ICU teamCritical care time 85 minutes 2/1Appears neuro intact, multimodal pain control, minimize narcotic use, no CO2 narcosisExtubated successfully, sats well on NC, wean O2, monitor for hypercapnia, encourage I-S, obtain serial ABGs, CXR reviewedHD unstable, weaning vasopressors and inotrope, monitor HD parameters, low CVP, lactic acidosis with uptrending lactate, gentle volume resuscitationOliguric CLAUDETTE, plan for CRRT per renal, hyperkalemia treated, obtain serial labPO challenge, bowel regimen, serial abdominal exam, monitor LFTsLeukocytosis postop, likely reactive, trend WBC, s/p antibiotic course for UTI ,periop antibioticsHgb trending down, no evidence of active bleed, monitor CTs output, RBC given HDinstabilityBlood glucose control with insulin drip per protocolEncourage PT/OT and activity as toleratedDVT and GI prophylaxis with DAPT and PPI 2/2Appears neuro intact, multimodal pain control, minimize narcotic usesats well on NC, wean O2, encourage I-S, ABG and CXR reviewedHD fairly stable, on minimal vasopressor support, lactic acidosis cleared s/p resuscitationOliguric CLAUDETTE, tolerated CRRT, holding off per renal, monitor UOP and electrolytes closelyOral diet as tolerated, bowel regimen, monitor LFTsLeukocytosis postop, trend WBC, treated for UTI preopHgb responded to PRBC, no evidence of active bleed, minimal CTs outputBlood glucose control, transitioned insulin drip to SSIEncourage PT/OT and out of bed as toleratedDVT and GI prophylaxis with DAPT and PPI 2/3Remains neuro intact, pain appears well controlledSats well on NC, wean O2, encourage I-S, ABG and CXR reviewedHD unstable, remains on minimal vasopressor support, attempt to wean, start midodrineOliguric CLAUDETTE, off CRRT per renal, minimal UOP, started renal dose dopamine dripTolerating oral diet, continue bowel regimen, LFTs normalizedLeukocytosis postop, continue to trend WBC, treated for UTI preopHgb stable s/p PRBC, no evidence of active bleed, monitor pCT outputBlood glucose control with sliding scale insulinEncourage PT/OT and out of bed as tolerated, CM for dispo planDVT and GI prophylaxis with DAPT and PPI 2/4Remains neuro intact, pain appears well controlledSats well on NC, wean O2, encourage I-S, ABG and CXR reviewedHD unstable, weaning vasopressors, increase midodrine dose, remains in SRAKI, likely postrenal, improved UOP, HD today per renal, hyperkalemia treatedTolerating oral diet, has bowel movement and bowel regimen, LFTs normalizedLeukocytosis, WBC trending down, currently off antibiotics s/p treatment for UTIHgb remains stable s/p PRBC, no evidence of active bleed, minimal CT outputBlood glucose control with sliding scale insulinEncourage PT/OT and out of bed as tolerated, CM for dispo plan, IPR consultedDVT and GI prophylaxis with DAPT and PPI 2/5Remains neuro intact, pain appears well controlledSats well, wean O2, encourage I-S, ABG and CXR reviewed, has left PTXHD stable off vasopressors, increased midodrine doseAKI, likely postrenal, making urine, HD per renal, renal US with hydronephrosisTolerating oral diet, has bowel movement and bowel regimenLeukocytosis, WBC trending down, monitor off antibiotics s/p treatment for UTIHgb remains stable s/p PRBC, no evidence of active bleed, keep CT to suctionBlood glucose control with sliding scale insulinTolerating PT/OT, CM for dispo plan, IPR on boardDVT and GI prophylaxis with DAPT and PPI 2/6Neuro Intact. Pain well controlled.Is off oxygen. On room air saturating more than 94%. Imaging chest x-ray reviewed. Still has a persistent left pneumothorax. IR guided pigtail was placed today , CXR shows expansion of the lung Maintaining the blood pressure on midodrine 5 3 times daily.Making good urine. Monitor the potassium. As per renal we will see if he needsdialysis tomorrow then will need a tunneled catheter.White count remained stable. No antibiotics.And bowel movement. Continue bowel regimen.Urology evaluation pending.PT OT. Pending rehab placement when medically ready. Total care time 34 minutes excluding procedureConsultants: cardiology, cardiovascular surgery, nephrology Quality: Gen Med Crit Care VTE ProphylaxisVTE prophylaxis initiated: yes at 1455 [facility] #:[id number] OF REPORTPRProgress [id number]:[id number] Available for patient [id number]:55:55 [facility]ACL 2022-07-14 09:09:00 [id number]:09:00 [facility] ([facility])Cardiothoracic Surgery ProgREPORT#:[id number] REPORT STATUS: SignedDATE:07/14/22 TIME: 908 PATIENT: SHERRI ARCE UNIT #: [id number]#: [id number] [address] [birth year] AGE: 81 SEX: M ATTEND: Srinath Kaur [facility] AUTHOR: Gianna Hoover * ALL edits or amendments must be made on the electronic/computer document * GeneralPost-op: day 6Status post:07/08/22 CABG x 5 (MISTRY-LAD, SVG-Ladonna, SVG-OM1< SVG-OM3, SVG-PDA) ALAA EVH (RGSV) SubjectiveChief complaint:s/p CABG no complaints Review of SystemsConstitutional:Denies: chills, fever, malaise. Allergy/Immun:Denies: allergic reaction. Respiratory:Denies: SOB. Cardiovascular:Denies: chest pain, palpitations. GI:Denies: abdominal pain, nausea, vomiting. :Denies: dysuria, hematuria. Heme:Denies: bleeding. Neuro:Denies: dizziness, headache, vision change. All systems rev neg: except as marked Objective GeneralVS/I OLast Documented: Result Date Time Pulse Ox 96 07/14 806 Pulse 81 07/14 0807 Resp 24 07/14 0807 B/P 101/53 07/14 0800 B/P Mean 72 07/14 08 O2 Delivery Nasal cannula 07/14 323 O2 Flow Rate 2 07/14 0324 Temp 98.6 07/13 1999 FiO2 50 07/08 1919 24 hour I O ending at 0700: 07/14 0700 07/13 1900 Intake Total 500 1200 Output Total 1515 1135 Balance -1015 65 Intake, Oral 500 960 Intake, Oral 240 Supplement Output, Chest 265 260 Tube Drainage Output, Urine 1250 875 PATIENT WEIGHT: Weight (lb): 200Weight (oz): 13.46Weight (kg): 91.100 Dietitian Nutrition assessmentThe data set between the solid lines has been imported from the dietitian's assessment. BMI Calculated: 27.2Nutrition related diagnosis: Nutrition diagnosis details: Nutrition problem: Increased nutrient needsNutrition etiology: Chronic diseaseNutrition signs and symptoms: ESTIMATED NEEDS S/P CABGNutrition prescription: 1. RECOMMEND CONTIUE CARDIAC DIET, MONITOR LABS WITH PTON DIALYSIS. 2. CONTINUE NEPRO BID. 3. DIET EDUCATION PRIOR TO DISCHARGE. 4. MONITOR PO, WT, LABS, BM.Dietitian name: Trang Rdoriguez, DIETAssessment completed: 07/10/22 Physical ExamGeneral appearance: alert, awake, orientedWound/incision: Location:sternal Site condition: dressing clean dry, dressing intactHEENT: anicteric, mucosal membranes moistNeck: supple/no meningismusCardiovascular: normal heart sounds, regular rate rhythmRespiratory: aerating well, symmetric expansion, no distressAbdomen: soft, non-tender, no distentionGenitourinary: waters, oN hd Extremities: moves allNeuro/GIFT OFFICER: alert, oriented X 3, normal speech, no motor deficitsPsychiatry: normal affect, normal mood Current MedicationsMedications:Active Meds + DC'd Last 24 HrsDextrose/Water (DEXTROSE 10% IN WATER) 250 ML STAT STA IV (DC) Insulin Human Regular (HUMAN INSULIN REG) 10 UNITS STAT STA IV (DC) Midodrine (PROAMATINE) 5 MG 0900,1300,1700 PO Sodium Bicarbonate (SODIUM BICARBONATE) 650 MG BID PO Ipratropium [place] (ATROVENT) 500 MCG RTQ2H PRN PRN INH Lactulose (LACTULOSE) 20 GM DAILY PRN PRN PO Cyanocobalamin (Vitamin B-12 500 mcg tab) 500 MCG DAILY PO Ferrous Sulfate (FERROUS SULFATE) 325 MG DAILY PO Dopamine HCl/Dextrose (DOPamine 400MG/D5W 250ML) 250 ML ASDIR IV Bisacodyl (DULCOLAX) 10 MG ONCE PRN RECTAL Atorvastatin Calcium (LIPITOR) 40 MG 2100 PO Clopidogrel Bisulfate (Plavix) 75 MG DAILY PO Polyethylene Glycol (MIRALAX) 17 GM DAILY PO Miscellaneous Information (PHARMACY TO DOSE/EVALUATE) 1 EACH ASDIR MISC Calcium Chloride (CALCIUM CHLORIDE) 1 GM ASDIR PRN IV Sodium Chloride (SODIUM CHLORIDE 0.9%) 100 MLCalcium Chloride (CALCIUM CHLORIDE) 2 GM ASDIR PRN IV Sodium Chloride (SODIUM CHLORIDE 0.9%) 100 MLMagnesium Sulfate (MAGNESIUM SULFATE 4GM/SWFI 100ML) 100 ML ASDIR PRN IV Magnesium Sulfate (MAGNESIUM SULFATE 2GM/SWFI 50ML) 50 ML ASDIR PRN IV Miscellaneous (PRISMASATE BGK 4/2.5 SOLUTION) 5,000 ML ASDIR DIALYSIS Potassium Chloride (KCL 10MEQ/SWFI 50ML) 50 ML ASDIR PRN IV Sodium Chloride (SODIUM CHLORIDE 0.9%) 2,000 ML ASDIR PRN IV Sodium Phosphate (SODIUM PHOSPHATE) 25 MMOL ASDIR PRN IV Sodium Chloride (SODIUM CHLORIDE 0.9%) 250 MLSodium Phosphate (SODIUM PHOSPHATE) 20 MMOL ASDIR PRN IV Sodium Chloride (SODIUM CHLORIDE 0.9%) 250 MLSodium Phosphate (SODIUM PHOSPHATE) 15 MMOL ASDIR PRN IV Sodium Chloride (SODIUM CHLORIDE 0.9%) 250 MLPantoprazole (PROTONIX) 40 MG DAILY@0600 PO Aspirin (ASPIRIN) 81 MG DAILY PO Vasopressin (VASOSTRICT 20 Unit/NS 100ML) 100 ML ASDIR IV (CKD) Amiodarone HCl (CORDARONE) 200 MG TID PO Docusate Sodium (COLACE) 100 MG BID PO Sennosides (Senna Lax 8.6 MG TABLET) 17.2 MG BEDTIME PO Ipratropium [place] (ATROVENT) 500 MCG RTQ4H INH Acetaminophen (TYLENOL) 650 MG Q4H PRN PRN PO Acetaminophen (TYLENOL) 650 MG Q4H PRN PRN RECTAL Calcium Chloride (CALCIUM CHLORIDE) 1 GM ASDIR PRN IV Dextrose/Water (DEXTROSE 10% IN WATER) 125 ML ASDIR PRN IV (CKD) Dextrose/Water (DEXTROSE 10% IN WATER) 250 ML ASDIR PRN IV (CKD) Epinephrine (ADRENALIN CHLORIDE) 4 MG ASDIR IV Dextrose/Water (DEXTROSE 5% WATER) 246 MLGlucagon (GLUCAGON) 1 MG ASDIR PRN IM Magnesium Sulfate (MAGNESIUM SULFATE 4GM/SWFI 100ML) 100 ML ASDIR PRN IV Magnesium Sulfate (MAGNESIUM SULFATE 2GM/SWFI 50ML) 50 ML ASDIR PRN IV Magnesium Sulfate/Dextrose (MAGNESIUM SULFATE 1GM/D5W 100ML) 100 ML ASDIR PRN IV Nitroglycerin/Dextrose (NITROGLYCERIN 50,000MCG/D5W 250ML) 250 ML ASDIR IV Norepinephrine Bitartrate (NOREPINEPHRINE 8 MG/NS 250 ML) 250 ML TITRATE IV Ondansetron HCl (ZOFRAN) 4 MG Q6H PRN PRN IV Oxycodone HCl (ROXICODONE) 5 MG Q4H PRN PRN PO (DC) Oxycodone HCl (ROXICODONE) 10 MG Q4H PRN PRN PO (DC) Potassium Chloride (KCL 20MEQ/SWFI 100ML) 100 ML ASDIR PRN IV Sodium Bicarbonate (SODIUM BICARBONATE) 50 MEQ ASDIR PRN IV Sodium Chloride (SODIUM CHLORIDE 0.9%) 250 ML Q24H IV (DC) Albumin Human (ALBUMINAR-25%) 12.5 GM ASDIR PRN IV Heparin Sodium (Porcine) (HEPARIN SODIUM) 3,000 UNIT ASDIR PRN DIALYSIS Lidocaine HCl (LIDOCAINE HCL/PF) 0.5 ML ASDIR PRN I-DERMAL (CKD) Mannitol (Mannitol 20%) 12.5 GM ASDIR PRN IV Sodium Chloride (SODIUM CHLORIDE 0.9%) 2,000 ML ASDIR PRN IV Tamsulosin HCl (Flomax 0.4 mg) 0.4 MG BEDTIME PO ResultsFindings/Data:Laboratory Tests 07/13 1029 Blood Gas O2 Saturation [...] (Auto) (14.0 - 32.0 %) 5.1 L Starke % (Auto) (4.8 - 9.0 %) 10.1 H Eos % (Auto) (0.3 - 3.7 %) 7.1 H Baso % (Auto) (0.0 - 2.0 %) 0.5 Neut # (Auto) (2.0 - 7.6 x10 3/uL) 9.80 H Lymph # (Auto) (1.0 - 3.8 x10 3/uL) 0.67 L Starke # (Auto) (0.1 - 0.8 x10 3/uL) 1.32 H Eos # (Auto) (0.0 - 0.2 x10 3/uL) 0.92 H Baso # (Auto) (0.0 - 0.2 x10 3/uL) 0.07 Abs Immat Gran (auto) (0.00 - 0.03 x10 3/uL) 0.24 H Add Manual Diff NO Immature Gran % (0.0 - 2.0 %) 1.8 Nucleated RBC % (0 - 0 %) 0.0 Nucleated RBCs # (Man) (0.0 - 0.1 x10 3/uL) 0.00 Results: labs reviewed, vital signs stable, rythm personally rev'd, x-ray personally reviewed, current med profile rev'd Treatment Prophylaxis Treatment ProphylaxisDrain(s)/tube(s): Drain(s)/tube(s): chest Quality: Trauma Gen Surg Advanced Care Plan 65 or OlderDiscussed with: patientDiscussion included: living will (none), power of school commissioner (none), code status (full code) VTE Prophylaxis - GeneralVTE prophylaxis initiated: yes Diagnosis, Assessment PlanHospital course to date:This is a 81-year-old gentleman who presented to an outside hospital with complaints of chest pains while walking at his home on Thursday. He denies any previous history of coronary artery disease or other [place]. He was seen and evaluated at [facility]. He was found to have a urinary tract infection with urinary retention and acute kidney. He was started on dialysis via a left femoral temporary catheter. He underwent dialysis on Thursday, Thursday. Renal has been consultedDuring his work-up at outside hospital he underwent Left heart catheterization showing severe Left Main 70%. LAD: Proximal diffuse 80% stenosis and then diffuse 60% in the midsegment and on the distal segment, there is focal 70% stenosis. Diagonal branches with luminal irregularities. Left circumflex, codominant circulation with proximal 80%, mid 80 to 90% and then in the OM, there is proximal 60%, distal left circumflex has a 70% stenosis. RCA large and dominant with proximal 40% stenosis, mid 60% stenosis and then diffuse 50% stenosis all the way distally and the PLV and the PDA with luminal irregularities. CV surgery consulted for evaluation for coronary bypass graft. CAROTIDS- No carotid stenosis CT chest complete IMPRESSION: Small bilateral pleural effusions with bibasilar atelectasis. Echo:1. Left ventricle: The cavity size is at the upper limits of normal. Wall thickness is mildly increased. Systolic function is severely reduced. The estimated ejection fraction is 30-34%. Moderate hypokinesis of the entire myocardium. Doppler parameters are consistent with abnormal left ventricular relaxation (grade 1 diastolic dysfunction).2. Pericardium, extracardiac: A small pericardial effusion is identified along the left ventricular free wall, along the right ventricular free wall, and along the right atrial free wall. Assessment/Plan1) CAD Mutlivessel Will obtain echo,carotids. 2) CLAUDETTE Started dialysis on Creatine 7.3 Renal consulted. 3) BPH- Urinary retention. Waters in place Workup for CABG underway. Will get functional assessment with PT. PFT pending Carotid dopplers- No disease Echo PendingDialyiss per Renal. Baseline Cr unknown. 07/04 07/04 Doing well today, alert, up in the chair. Denies chest painEchocardiogram showed LVEF 30 to 34%, mild MR, trivial TRCT chest images reviewedEncourage I-S and mobilizationCreatinine 5.5 from 7.3, good urine output. Renal US showed bilateral severe hydronephrosis. Plan for HD today and tomorrow Will tentatively schedule patient for surgery on Thursday.Patient seen and plan reviewed with Dr Schwarz 07/05 Remains in a stable condition, denies chest pain BUN 53, creatinine 5.4. Plan for hemodialysis today and tomorrow for clearanceHe is also on Lasix 20 mg IV twice daily, urine output 1.1 L overnightWe will calculate risk of surgery with STS scoreEncourage I-S and mobilizationWill tentatively schedule patient for surgery on Thursday.Pt seen and plan reviewed with Dr Schwarz 07/06 BUN 36, creatinine 4.4. Plan for hemodialysis todayAwaiting CABG tomorrowSurgery, risks involved, STS score, benefits, complications and alternatives were explained to the patient. He acknowledged understanding and is willing to proceedN.p.o. after midnightPatient seen and plan reviewed with Dr. Schwarz 07/09/22POD 1CABG x 5 (MISTRY-LAD, SVG-Ladonna, SVG-OM1< SVG-OM3, SVG-PDA), ALAA, EVH (RGSV)Patient hemodynamically unstable, on epi at 4, and vaso .04, decreased uop overnight- 150ccStarted patient on CRRT 2k/3.5Wean epi as tolerated, Cardiac incex 2.8-3labs and chest x-ray reviewed, electrolytes stable, hgb 6.5- transfuse 2 units PRBCOn 4l nasal cannula- encourage incentive spirometer and deep breathingKeep both chest tubes and monitor outputsGlycemic control on insulin dripCardiac dietBowel regimen protocolPain managementSCDs for DVT and PPI for GI prophylaxisPT/OTMonitor patient closely in CVICUPlan of care discussed with Dr. Schwarz 07/10/22 2Patient alert, awake, and oriented, no distres notedlabs and CXR reviewed stableBreathing comfortably on 3l nasal cannula- wean as tolerated to melissa O2 sats > 92%Encourage I-S use and deep breathingOn CRRT- able to remove 2.9L overnight- nephrology followingCardiac index 3.1- wean off epi dripKeep chest tubes for now and monitor outputsTransition to sliding scale insulin- cardiac dietTry to get patient out of bed to chair today- ambulate with PT/OTSCDs for DVT prophylaxisKeep patient in CVICU for close monitoring 07/11/22PO 3Patient in stable condition, overnight events noted- decreased urine output 35 ml last night-started on dopamine gtt for renal perfusionCardiac index 3.5- epi currently at 2- will discontinue today, vasopressin at 0.02, added low dose midodrine 2.5 mg TID, repeat echocardiogram.Renal Following- trial LasixPatient has Left femoral temp dialysis cath, Will need tunneled dialysis IJ cathplaced if need dialysis. On 5l nasal cannula- wean off as tolerated, encourage incentive spirometer and deep breathingKeep left pleural chest tube and monitor output- > 200 cc Tolerating diet, bowel regimen protocolPT/OT- patient out of bed to chair today- encourage ambulationDVT prophylaxis with SCDsMonitor patient closely in CVICUPlan discussed with multidisciplinary teamPlan discussed with Dr Schwarz/ Dr Rodríguez 07/12/22PO 5,Patient resting comfortable. Patient with hx of urinary retention- After standing today- voided 1.4 L. Needs Urology consult for retention K 5.4- HD in progress. Dr Plaza following. CT output 20- DC today. Pacers remain in place. 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 Card: Remains in sinus rhythm. Respir: on 7 L NC O2 95%Dispo: Rehab consultedPatient seen and exmained by Dr Rodríguez. Plan discussed with Team 07/13/22 5Patient with no new complaints. Recieved HD yesterday.Requiring less oxygen, now on 3l nasal cannula- continue to wean offCXR reviewed left apical pneumothorax 4cm/30%, Chest tube drained 140 overnight,placed back on suction to clear pneumo, CT drianed 200cc this AM. on suction. Labs reviewed- stable, decreased WBC, hgb stable, CR 3.9Eating welll, +BMUO- 550CC, BP improved on midodrine. Continue PT/OT, ambulation and incentive spirometer useRehab folowing Monitor in ICU todayDisucssed with Dr Schwarz- DC femoral line and Central line today. DC art line. Will re-eval need for dialysis cath Thursday. Consider tunnelled cath if need.Patient seen and examined by Dr Rodríguez. Plan discussed with Care team. 07/14PO 6Patient in stable condition, no distress notedRemains on room air, O2 sats > 92%, encourage I-S use and deep breathingCXR shows moderate left apical pneumothorax unchangedCT remained on suction, no airleak noConsult IR for pigtail chest tube placement this morningCardiac/renal dietLabs reviewed- K 5.1- repeat labs K 4.8Nephrology followingContinue therapy with PT/OTFollow up with urology for waters catheter- Dr Harris consulted.Monitor in CVICUPlan of care discussed with Dr Schwarz and multidisciplinary team Consultants: cardiology, cardiovascular surgery, nephrology at 1304 at 1944 RPT #:[id number] OF REPORTPRProgress [id number]:[id number] Available for patient [id number]:04:26 [facility] 2022-07-14 05:21:00 [id number]:21:00 [facility] ([facility])Rehab Progress NoteREPORT#:[id number] REPORT STATUS: SignedDATE:07/14/22 TIME: 520 PATIENT: SHERRI ARCE UNIT #: [id number]#: [id number] [address] [birth year] AGE: 81 SEX: M ATTEND: Sarbjit Mcarthur [facility] AUTHOR: Magdaleno Washburn * ALL edits or amendments must be made on the electronic/computer document * SubjectiveChief complaint:Rehab follow-upSeen in CCUStates he feels really good todayStill on dopamine dripFatigues easilyPleasantFeels ok Denies NAIK/N/V/D/CP14 systems reviewed and neg. except that above. Objective GeneralVS:Vital Signs: Date Time Temp Pulse Resp B/P B/P Pulse O2 O2 Flow FiO2 Mean Ox Delivery Rate 07/14 032 95 Nasal 2 cannula 07/13 2007 95 Room air 07/13 2000 98.6 07/13 1600 76 37 122/65 89 94 07/13 1500 70 25 103/58 77 96 07/13 1400 74 22 102/58 77 95 07/13 1300 79 33 109/56 79 99 07/13 1200 82 31 103/56 72 95 02/05 [...] 109/56 78 99 PATIENT WEIGHT: Weight (lb): 200Weight (oz): 13.46Weight (kg): 91.100 Medications:Active Meds + DC'd Last 24 HrsMidodrine (PROAMATINE) 5 MG 0900,1300,1700 PO Sodium Bicarbonate (SODIUM BICARBONATE) 650 MG BID PO Ipratropium [place] (ATROVENT) 500 MCG RTQ2H PRN PRN INH Lactulose (LACTULOSE) 20 GM DAILY PRN PRN PO Cyanocobalamin (Vitamin B-12 500 mcg tab) 500 MCG DAILY PO Ferrous Sulfate (FERROUS SULFATE) 325 MG DAILY PO Dopamine HCl/Dextrose (DOPamine 400MG/D5W 250ML) 250 ML ASDIR IV Bisacodyl (DULCOLAX) 10 MG ONCE PRN RECTAL Atorvastatin Calcium (LIPITOR) 40 MG 2100 PO Clopidogrel Bisulfate (Plavix) 75 MG DAILY PO Polyethylene Glycol (MIRALAX) 17 GM DAILY PO Miscellaneous Information (PHARMACY TO DOSE/EVALUATE) 1 EACH ASDIR MISC Calcium Chloride (CALCIUM CHLORIDE) 1 GM ASDIR PRN IV Sodium Chloride (SODIUM CHLORIDE 0.9%) 100 MLCalcium Chloride (CALCIUM CHLORIDE) 2 GM ASDIR PRN IV Sodium Chloride (SODIUM CHLORIDE 0.9%) 100 MLMagnesium Sulfate (MAGNESIUM SULFATE 4GM/SWFI 100ML) 100 ML ASDIR PRN IV Magnesium Sulfate (MAGNESIUM SULFATE 2GM/SWFI 50ML) 50 ML ASDIR PRN IV Miscellaneous (PRISMASATE BGK 4/2.5 SOLUTION) 5,000 ML ASDIR DIALYSIS Potassium Chloride (KCL 10MEQ/SWFI 50ML) 50 ML ASDIR PRN IV Sodium Chloride (SODIUM CHLORIDE 0.9%) 2,000 ML ASDIR PRN IV Sodium Phosphate (SODIUM PHOSPHATE) 25 MMOL ASDIR PRN IV Sodium Chloride (SODIUM CHLORIDE 0.9%) 250 MLSodium Phosphate (SODIUM PHOSPHATE) 20 MMOL ASDIR PRN IV Sodium Chloride (SODIUM CHLORIDE 0.9%) 250 MLSodium Phosphate (SODIUM PHOSPHATE) 15 MMOL ASDIR PRN IV Sodium Chloride (SODIUM CHLORIDE 0.9%) 250 MLPantoprazole (PROTONIX) 40 MG DAILY@0600 PO Aspirin (ASPIRIN) 81 MG DAILY PO Vasopressin (VASOSTRICT 20 Unit/NS 100ML) 100 ML ASDIR IV (CKD) Amiodarone HCl (CORDARONE) 200 MG TID PO Docusate Sodium (COLACE) 100 MG BID PO Gabapentin (NEURONTIN) 200 MG BID PO (DC) Mupirocin (BACTROBAN 2% 22 GM OINTMENT) 1 APPLIC BID NASAL (DC) Sennosides (Senna Lax 8.6 MG TABLET) 17.2 MG BEDTIME PO Ipratropium [place] (ATROVENT) 500 MCG RTQ4H INH Acetaminophen (TYLENOL) 650 MG Q4H PRN PRN PO Acetaminophen (TYLENOL) 650 MG Q4H PRN PRN RECTAL Calcium Chloride (CALCIUM CHLORIDE) 1 GM ASDIR PRN IV Dextrose/Water (DEXTROSE 10% IN WATER) 125 ML ASDIR PRN IV (CKD) Dextrose/Water (DEXTROSE 10% IN WATER) 250 ML ASDIR PRN IV (CKD) Epinephrine (ADRENALIN CHLORIDE) 4 MG ASDIR IV Dextrose/Water (DEXTROSE 5% WATER) 246 MLGlucagon (GLUCAGON) 1 MG ASDIR PRN IM Magnesium Sulfate (MAGNESIUM SULFATE 4GM/SWFI 100ML) 100 ML ASDIR PRN IV Magnesium Sulfate (MAGNESIUM SULFATE 2GM/SWFI 50ML) 50 ML ASDIR PRN IV Magnesium Sulfate/Dextrose (MAGNESIUM SULFATE 1GM/D5W 100ML) 100 ML ASDIR PRN IV Nitroglycerin/Dextrose (NITROGLYCERIN 50,000MCG/D5W 250ML) 250 ML ASDIR IV Norepinephrine Bitartrate (NOREPINEPHRINE 8 MG/NS 250 ML) 250 ML TITRATE IV Ondansetron HCl (ZOFRAN) 4 MG Q6H PRN PRN IV Oxycodone HCl (ROXICODONE) 5 MG Q4H PRN PRN PO (DC) Oxycodone HCl (ROXICODONE) 10 MG Q4H PRN PRN PO (DC) Potassium Chloride (KCL 20MEQ/SWFI 100ML) 100 ML ASDIR PRN IV Sodium Bicarbonate (SODIUM BICARBONATE) 50 MEQ ASDIR PRN IV Sodium Chloride (SODIUM CHLORIDE 0.9%) 250 ML Q24H IV (DC) Albumin Human (ALBUMINAR-25%) 12.5 GM ASDIR PRN IV Heparin Sodium (Porcine) (HEPARIN SODIUM) 3,000 UNIT ASDIR PRN DIALYSIS Lidocaine HCl (LIDOCAINE HCL/PF) 0.5 ML ASDIR PRN I-DERMAL (CKD) Mannitol (Mannitol 20%) 12.5 GM ASDIR PRN IV Sodium Chloride (SODIUM CHLORIDE 0.9%) 2,000 ML ASDIR PRN IV Tamsulosin HCl (Flomax 0.4 mg) 0.4 MG BEDTIME PO Functional ProgressFunctional progress: Sit to Stand: Minimal Assistance Pivot Transfer: Minimal Assistance Activities Performed Cmt: PATIENT COMPLETED SIT<>STAND XFERS, DYNAMIC STANDING TASKS, COMMUNITY MOBILITY, AND RETURNS TO BS CHAIR. Assistive Device Used: Staff Support RW Balance: Fair Safety Awareness: Fair Effects of Treatment: Circulation improved Tolerance increased Review OT Plan of Care: Yes Document OT charges: FT/THERAP. ACTIVITY [id number] Physical ExamGeneral appearance: alert, awake, no acute distressPsych: alert, oriented x 3HEENT: anicteric, sclera clearNeck: supple, no JVDCardiovascular: regular rate rhythm, S1/C0Ldyesgmxwqq: aerating well, clear bilaterallyAbdomen: bowel sounds present, non-distended, softSkin: intact, no rashMusculoskeletal - general: Musculoskeletal - general: joints normal, normal muscle mass, normal toneNeuro/GIFT OFFICER: alert, oriented X 3, CNII-XII intact ResultsFindings/Data:Laboratory Tests: 07/14 07/13 0337 1029 Blood Gas [...] (Auto) (14.0 - 32.0 %) 5.1 L Starke % (Auto) (4.8 - 9.0 %) 10.1 H Eos % (Auto) (0.3 - 3.7 %) 7.1 H Baso % (Auto) (0.0 - 2.0 %) 0.5 Neut # (Auto) (2.0 - 7.6 x10 3/uL) 9.80 H Lymph # (Auto) (1.0 - 3.8 x10 3/uL) 0.67 L Starke # (Auto) (0.1 - 0.8 x10 3/uL) 1.32 H Eos # (Auto) (0.0 - 0.2 x10 3/uL) 0.92 H Baso # (Auto) (0.0 - 0.2 x10 3/uL) 0.07 Abs Immat Gran (auto) (0.00 - 0.03 x10 3/uL) 0.24 H Add Manual Diff NO Immature Gran % (0.0 - 2.0 %) 1.8 Nucleated RBC % (0 - 0 %) 0.0 Nucleated RBCs # (Man) (0.0 - 0.1 x10 3/uL) 0.00 Diagnosis, Assessment PlanFree Text A P:Non-STEMIMultivessel CADS/p CABG p1Psgdnxrs deconditioningImpaired mobility and gaitPostoperative anemiaDyslipidemiaHypertensionAKIAcute systolic heart failureHemodynamic issues postopLeukocytosis trending down Plan:Continue PT/OTOut of bed to chairWork on strength, bed mobility, transfers, gaitSternal precautionIncrease enduranceFall precautionsMonitor p.o. intake and nutritionStrict decubitus precautionsMonitor anemia. Nephrology managing renal issues and elevated K+Still on dopamine drip and has 1 Keshav drainAdvance therapies as toleratedIRF consulted. Will require insurance approval Total time was 33 minutes > 50% with patient performing physical examination, discussing plan of care, goals, therapies, progress, medications, labs, IRF. All questions answeredConsultants: cardiology, cardiovascular surgery, nephrologyRehab attestation:, at 1144 RPT #:[id number] OF REPORTPRProgress [id number]:21:[id number] Available for patient [id number]:45:14 [facility] 2022-07-13 20:31:00 [id number]:31:00 [facility] ([facility])Nephrology Progress NoteREPORT#:[id number] REPORT STATUS: SignedDATE:07/13/22 TIME: 2030 PATIENT: SHERRI ARCE UNIT #: [id number]#: [id number] [address] [birth year] AGE: 81 SEX: M ATTEND: Sarbjit Mcarthur [facility] AUTHOR: Evelina Plaza MD * ALL edits or amendments must be made on the electronic/computer document * SubjectiveChief complaint:has no complaints. Objective GeneralVS/I O:Vital Signs: Date Time Temp Pulse Resp B/P [...] 71 100 02/05 0700 100/42 55 02/05 07 75 26 93/52 67 100 07/13 0600 121/46 63 07/13 06 80 26 109/56 78 99 07/13 0400 98.5 07/13 0345 100 Nasal [...] scale Measurement Method PATIENT WEIGHT: Weight (lb): 200Weight (oz): 13.46Weight (kg): 91.100 MedicationsActive Meds + DC'd Last 24 HrsMidodrine (PROAMATINE) 5 MG 0900,1300,1700 PO Sodium Bicarbonate (SODIUM BICARBONATE) 650 MG BID PO Ipratropium [place] (ATROVENT) 500 MCG RTQ2H PRN PRN INH Lactulose (LACTULOSE) 20 GM DAILY PRN PRN PO Cyanocobalamin (Vitamin B-12 500 mcg tab) 500 MCG DAILY PO Ferrous Sulfate (FERROUS SULFATE) 325 MG DAILY PO Dopamine HCl/Dextrose (DOPamine 400MG/D5W 250ML) 250 ML ASDIR IV Bisacodyl (DULCOLAX) 10 MG ONCE PRN RECTAL Atorvastatin Calcium (LIPITOR) 40 MG 2100 PO Clopidogrel Bisulfate (Plavix) 75 MG DAILY PO Polyethylene Glycol (MIRALAX) 17 GM DAILY PO Miscellaneous Information (PHARMACY TO DOSE/EVALUATE) 1 EACH ASDIR MISC Calcium Chloride (CALCIUM CHLORIDE) 1 GM ASDIR PRN IV Sodium Chloride (SODIUM CHLORIDE 0.9%) 100 MLCalcium Chloride (CALCIUM CHLORIDE) 2 GM ASDIR PRN IV Sodium Chloride (SODIUM CHLORIDE 0.9%) 100 MLMagnesium Sulfate (MAGNESIUM SULFATE 4GM/SWFI 100ML) 100 ML ASDIR PRN IV Magnesium Sulfate (MAGNESIUM SULFATE 2GM/SWFI 50ML) 50 ML ASDIR PRN IV Miscellaneous (PRISMASATE BGK 4/2.5 SOLUTION) 5,000 ML ASDIR DIALYSIS Potassium Chloride (KCL 10MEQ/SWFI 50ML) 50 ML ASDIR PRN IV Sodium Chloride (SODIUM CHLORIDE 0.9%) 2,000 ML ASDIR PRN IV Sodium Phosphate (SODIUM PHOSPHATE) 25 MMOL ASDIR PRN IV Sodium Chloride (SODIUM CHLORIDE 0.9%) 250 MLSodium Phosphate (SODIUM PHOSPHATE) 20 MMOL ASDIR PRN IV Sodium Chloride (SODIUM CHLORIDE 0.9%) 250 MLSodium Phosphate (SODIUM PHOSPHATE) 15 MMOL ASDIR PRN IV Sodium Chloride (SODIUM CHLORIDE 0.9%) 250 MLPantoprazole (PROTONIX) 40 MG DAILY@0600 PO Aspirin (ASPIRIN) 81 MG DAILY PO Vasopressin (VASOSTRICT 20 Unit/NS 100ML) 100 ML ASDIR IV (CKD) Amiodarone HCl (CORDARONE) 200 MG TID PO Docusate Sodium (COLACE) 100 MG BID PO Gabapentin (NEURONTIN) 200 MG BID PO (DC) Mupirocin (BACTROBAN 2% 22 GM OINTMENT) 1 APPLIC BID NASAL (DC) Sennosides (Senna Lax 8.6 MG TABLET) 17.2 MG BEDTIME PO Ipratropium [place] (ATROVENT) 500 MCG RTQ4H INH Acetaminophen (TYLENOL) 650 MG Q4H PRN PRN PO Acetaminophen (TYLENOL) 650 MG Q4H PRN PRN RECTAL Calcium Chloride (CALCIUM CHLORIDE) 1 GM ASDIR PRN IV Dextrose/Water (DEXTROSE 10% IN WATER) 125 ML ASDIR PRN IV (CKD) Dextrose/Water (DEXTROSE 10% IN WATER) 250 ML ASDIR PRN IV (CKD) Epinephrine (ADRENALIN CHLORIDE) 4 MG ASDIR IV Dextrose/Water (DEXTROSE 5% WATER) 246 MLGlucagon (GLUCAGON) 1 MG ASDIR PRN IM Magnesium Sulfate (MAGNESIUM SULFATE 4GM/SWFI 100ML) 100 ML ASDIR PRN IV Magnesium Sulfate (MAGNESIUM SULFATE 2GM/SWFI 50ML) 50 ML ASDIR PRN IV Magnesium Sulfate/Dextrose (MAGNESIUM SULFATE 1GM/D5W 100ML) 100 ML ASDIR PRN IV Nitroglycerin/Dextrose (NITROGLYCERIN 50,000MCG/D5W 250ML) 250 ML ASDIR IV Norepinephrine Bitartrate (NOREPINEPHRINE 8 MG/NS 250 ML) 250 ML TITRATE IV Ondansetron HCl (ZOFRAN) 4 MG Q6H PRN PRN IV Oxycodone HCl (ROXICODONE) 5 MG Q4H PRN PRN PO (DC) Oxycodone HCl (ROXICODONE) 10 MG Q4H PRN PRN PO (DC) Potassium Chloride (KCL 20MEQ/SWFI 100ML) 100 ML ASDIR PRN IV Sodium Bicarbonate (SODIUM BICARBONATE) 50 MEQ ASDIR PRN IV Sodium Chloride (SODIUM CHLORIDE 0.9%) 250 ML Q24H IV (DC) Albumin Human (ALBUMINAR-25%) 12.5 GM ASDIR PRN IV Heparin Sodium (Porcine) (HEPARIN SODIUM) 3,000 UNIT ASDIR PRN DIALYSIS Lidocaine HCl (LIDOCAINE HCL/PF) 0.5 ML ASDIR PRN I-DERMAL (CKD) Mannitol (Mannitol 20%) 12.5 GM ASDIR PRN IV Sodium Chloride (SODIUM CHLORIDE 0.9%) 2,000 ML ASDIR PRN IV Tamsulosin HCl (Flomax 0.4 mg) 0.4 MG BEDTIME PO Physical ExamGeneral appearance: alert, awake, orientedHead/eyes: atraumatic, normocephalicENT: moist mucous membranes, normal noseNeck: non-tender, no JVDExtremities: no edema, no swellingNeuro/GIFT OFFICER: alert, oriented X 3, normal speechSkin: dry, intact ResultsFindings/Data:Laboratory Tests 07/13 07/13 1029 0304 Blood Gas [...] Calcium (1.12 - 1.32 MMOL/L) 1.11 L 1.13 Lactic Acid (0.9 - 1.7 mmol/l) 1.8 [...] (Auto) (14.0 - 32.0 %) 7.0 L Starke % (Auto) (4.8 - 9.0 %) 8.8 Eos % (Auto) (0.3 - 3.7 %) 6.4 H Baso % (Auto) (0.0 - 2.0 %) 0.5 Neut # (Auto) (2.0 - 7.6 x10 3/uL) 10.04 H Lymph # (Auto) (1.0 - 3.8 x10 3/uL) 0.93 L Starke # (Auto) (0.1 - 0.8 x10 3/uL) 1.17 H Eos # (Auto) (0.0 - 0.2 x10 3/uL) 0.85 H Baso # (Auto) (0.0 - 0.2 x10 3/uL) 0.07 Abs Immat Gran (auto) (0.00 - 0.03 x10 3/uL) 0.17 H Add Manual Diff NO Immature Gran % (0.0 - 2.0 %) 1.3 Nucleated RBC % (0 - 0 %) 0.0 Nucleated RBCs # (Man) (0.0 - 0.1 x10 3/uL) 0.00 Radiology data:Recent Impressions:RADIOLOGY - XR CHEST 1 V 07/13 0652 Report Impression - Status: SIGNED Entered: 07/13/2022 0915 IMPRESSION: Left apical pneumothorax measuring approximately 4 cm, approximately 30%.Otherwise, no significant change.Impression By: [email or web address] - Delmer Palma M.D. Treatment Prophylaxis Treatment ProphylaxisDrain(s)/tube(s): Drain(s)/tube(s): chest Diagnosis, Assessment PlanFree Text A P:Assessment:1-CLAUDETTE likely from urinary retention. oliguric CLAUDETTE now post op, from shock!2- non-STEMI: multivessel disease w main left. S/P CABG X5 on - BPH. Waters catheter is in place.4-severe bilateral hydronephrosis5- shock : Cardiogenic6-hyperlipidemia Plan:- unknown Scr baseline but ultrasound showed MRD. - Ultrasound showed severe bilateral hydronephrosis. Continue Waters catheter. Urology consulted. - s/p CABG X5 on 07/08- He underwent LHC on 07/03. Started on HD without UF on 07/04. - off vasopressors. - s/p HD 2/. no HD today. - discussed with CT surgery, no emergent HD need today, okay to remove adeel cath, however, he propably will need more ENERGY SPECIALIST. Consultants: cardiology, cardiovascular surgery, nephrology at 1054 RPT #:[id number] OF REPORTPRProgress [id number]:[id number] Available for patient [id number]:15 [facility]ACL 2022-07-13 16:23:00 [id number] [facility] ([facility])Hospitalist Progress NoteREPORT#:[id number] REPORT STATUS: SignedDATE:07/13/22 TIME: 1623 PATIENT: SHERRI ARCE UNIT #: [id number]#: [id number] [address] [birth year] AGE: 81 SEX: M ATTEND: Sarbjit Mcarthur [facility] AUTHOR: Sarbjit Mcarthur MD * ALL edits or amendments must be made on the electronic/computer document * SubjectiveChief complaint:Status post CABG x5 on 07/09, Doing well today. Ambulated around the unit.HPI:81 y/o man with PMHx of HTN, Dyslipidemia that [facility] with chest pain and found to have a NSTEMI and also acute renal failure. Underwent cardiac cath yesterday and found to have severe CAD including left main disease. Transfer here for CABG evaluation. He also underwent HD Thursday and Thursday of this week. HD catheter was place at [facility]. Currently not having any chest pain. Had chest pain with SOB when he presentted to the previous hospital. Objective GeneralVS/I O:Vital Signs: Date Time Temp Pulse Resp B/P B/P Pulse O2 O2 Flow FiO2 Mean Ox Delivery Rate 07/13 0830 110/38 53 07/13 0830 77 26 91/53 67 91 07/13 899 103/37 54 07/13 899 83 22 94/50 67 84 07/13 0730 106/34 50 07/13 0730 80 27 93/54 70 96 07/13 799 98.3 07/13 0800 113/45 63 / 0800 81 26 100/64 74 88 / 0741 100 Room air 07/13 0730 124/47 62 07/13 0730 75 26 98/53 71 100 07/13 0700 100/42 55 / 0700 75 26 93/52 67 100 / 0600 121/46 63 / 0600 80 26 109/56 78 99 07/13 0400 98.5 07/13 0345 100 Nasal 5 cannula 07/13 0000 97.6 07/12 2049 100 Nasal 5 cannula 07/12 1999 98.1 07/12 1999 Nasal 5 cannula 07/12 1657 70 32 105/41 58 100 07/12 1630 124/52 71 07/12 1630 68 26 92/60 72 100 24 hour I O ending at 0700: 07/13 0707/12 1900 Intake Total 350 240 Output Total 720 1756 Balance -370 -1516 Intake, Oral 350 240 Output, Chest 140 120 Tube Drainage Output, 1001 Hemodialysis Output, Urine 580 635 Patient 91.1 kg Weight Weight Chair scale Measurement Method PATIENT WEIGHT: Weight (lb): 200Weight (oz): 13.46Weight (kg): 91.100 Physical ExamGeneral appearance: alert, awake, orientedHead/Eyes: atraumatic, EOMI, normal conjunctiva/sclera, normocephalic, PERRLAENT: moist mucosal membranesNeck: full range of motion, no bruit/NL carotids, no JVDCardiovascular: normal heart sounds, regular rate rhythmRespiratory: aerating well, clear to auscultation, symmetric expansion, no distressAbdomen: non-tender, normal bowel sounds, soft, no distention, no guarding, no reboundExtremities: moves all, no cyanosis, no edemaMusculoskeletal: normal inspectionNeuro/GIFT OFFICER: alert, oriented X 3, normal speech, no motor deficits, no sensory deficitsSkin: intact, normal color, no rashPsychiatry: normal affect ResultsFindings/Data:Laboratory Tests 07/13 07/13 1029 0304 Blood Gas [...] Calcium (1.12 - 1.32 MMOL/L) 1.11 L 1.13 Lactic Acid (0.9 - 1.7 mmol/l) 1.8 [...] (Auto) (14.0 - 32.0 %) 7.0 L Starke % (Auto) (4.8 - 9.0 %) 8.8 Eos % (Auto) (0.3 - 3.7 %) 6.4 H Baso % (Auto) (0.0 - 2.0 %) 0.5 Neut # (Auto) (2.0 - 7.6 x10 3/uL) 10.04 H Lymph # (Auto) (1.0 - 3.8 x10 3/uL) 0.93 L Starke # (Auto) (0.1 - 0.8 x10 3/uL) 1.17 H Eos # (Auto) (0.0 - 0.2 x10 3/uL) 0.85 H Baso # (Auto) (0.0 - 0.2 x10 3/uL) 0.07 Abs Immat Gran (auto) (0.00 - 0.03 x10 3/uL) 0.17 H Add Manual Diff NO Immature Gran % (0.0 - 2.0 %) 1.3 Nucleated RBC % (0 - 0 %) 0.0 Nucleated RBCs # (Man) (0.0 - 0.1 x10 3/uL) 0.00 Radiology data:Recent Impressions:RADIOLOGY - XR CHEST 1 V 07/13 0613 Report Impression - Status: SIGNED Entered: 07/13/2022 9553 IMPRESSION: Left apical pneumothorax measuring approximately 4 cm, approximately 30%.Otherwise, no significant change.Impression By: Toro Palma M.D. Treatment Prophylaxis Treatment ProphylaxisDrain(s)/tube(s): Drain(s)/tube(s): chest Diagnosis, Assessment PlanConsultants: cardiology, cardiovascular surgery, nephrology Free Text DxA P NotesFree text DxA P notes:Assessment and plans:CAD (coronary artery disease) patient presented with NSTEMI and found to hve severe CAD. Cardiac cath shows: Left Main - Distal 70% LAD - Proximal 80% with another 60% and 70% lessions Cir - Proximal 80%,mid 80-90%, Distal 70% and OM 60% RCA - large dominant with proximal 40%, Mid 60%. Cardiology and CV surgeon consulted echo: ef 30-34%, mod hypokinesis of entire myocardium, grade 1 diastolic dysfunction Carotid Dopplers negative PFTs PT/OT s/p CABG X5 on 07/08 Patient on ASA, plavix, BB and Statin on amiodarone Beta-tomas as tolerated for low BP, Acute systolic heart failure Echocardiac with estimated LVEF of 30 to 34% with grade 1 diastolic dysfunction-s/p Lasix 20 mg twice daily 07/05 -on metoprolol 12.5 mg bid on hold now, BP low-no ACEI/ spironolactione for CLAUDETTE-Strict I's and O's, daily weights-Start GDMT prior to discharge CLAUDETTE (acute kidney injury) No prior Hx of renal disease. hx of BPH and treated with Fosamax w/o improvement nd continue to have difficulty urinating. On admission was found to be on acute renal filaure and had received HD twice prior to arrival here (thursday and thursday). Creatinine this am was 7.4, BUN 68 * Probably due to obstructive uropathy* waters already in place* Nephrology consuled for HD On daily hemodialysis as per nephrology Anemia:-Hemoglobin dropped to 6.5 s/p CABG 2 PRBC BT ordered 07/09 Monitor H H Leukocytosis:-Afebrile Monitor WBC count HTN (hypertension) patient on metoprolol 12.5 mg BID, will adjust as needed On labetalol/hydralazine as needed Dyslipidemia on Lipitor 40mg po daliy. BPH (benign prostatic hyperplasia) Started on Flomax at the previous hospital, will continue with it. Waters catheter in place, continue Waters catheter as per nephrology 07/05 Goiter Hx of Goiter and surgical resection. TSH 3.33, within normal limits. Patient is not on Thyroid medication. anemia of chronic kidney disease Hemoglobin 8.3, monitor Hypokalemia resolved UTI continue Rocephin for empiric treatment pending results of urine culture No growth for 48 hours DVT prophylaxis: Heparin 5000 units every 8 hoursDiet: Cardiac dietCODE STATUS: Full code Disposition: Status post CABG x5 on 07/09, hemodialysis as per nephrology. Worked with PT in his room, on 2 L oxygen via nasal cannula. PT/OT on board. Rehab consulted. Continue CVICU care. Quality: Gen Med Crit Care VTE ProphylaxisVTE prophylaxis initiated: yes Current MedicationsCurrent medication review:I attest that the foregoing medication list in the medical record is true, accurate, and complete to the best of my knowledge. Advanced Care Plan 65 or OlderDiscussed with: patientDiscussion included: living will (none), power of school commissioner (none), code status (full code) at 1625 RPT #:[id number] OF REPORTPRProgress [id number]:23:[id number] Available for patient [id number]:23 HCACL 2022-07-13 14:48:00 [id number]:48:00 [facility] ([facility])Critical Care Progress NoteREPORT#:[id number] REPORT STATUS: SignedDATE:07/13/22 TIME: 1448 PATIENT: SHERRI ARCE UNIT #: [id number]#: [id number] [address] [birth year] AGE: 81 SEX: M ATTEND: Sarbjit Mcarthur MDADM AUTHOR: Edwardo Flannery MD * ALL edits or amendments must be made on the electronic/computer document * SubjectiveChief complaint:CABGHPI:This is 81 years old male with medical history significant for HTN and dyslipidemia who presented to [facility]06[facility]28[facility]22 with chest pain and found to have a NSTEMI and also acute renal failure. He underwent cardiac cath and was found to have severe CAD including left main disease with EF of 30 to 35% and ischemic cardiomyopathy. Transfer here for CABG evaluation. CV surgery were consulted and the patient earlier today underwent CABG x 5 (MISTRY-LAD, SVG-Ladonna, SVG-OM1< SVG-OM3, SVG-PDA) and ALAA. His intraoperative course was without significant occurrence. The patient was brought to CVICU intubated and ventilated on milrinone drip, norepinephrine drip, epinephrine drip and vasopressin drip.His initial ABG showed metabolic acidosis and he received 2 A of sodium bicarb and 1 g of calcium.The patient started to wake up later in the evening but he looked weak, so he was reversed with neostigmine and glycopyrrolate. His motor strength improved significantly after that and his spontaneous breathing trial was good on the following ABG showed some metabolic acidosis. The patient will be extubated to a BiPAP as his CO2 was high on the ABG. Comments:Out of bed in the chairHD yesterday, removed 1 LUrine output 550 ccChest tube output 140 cc Objective GeneralVS/I OLast Documented: Result Date Time B/P 110/38 07/13 0930 B/P Mean 53 07/13 0930 Pulse Ox 91 07/13 0930 Pulse 77 / 0930 Resp 26 / 0930 Temp 98.3 07/13 0800 O2 Delivery Room air 07/13 0741 O2 [...] scale Measurement Method PATIENT WEIGHT: Weight (lb): 200Weight (oz): 13.46Weight (kg): 91.100 Medications:Active Meds + DC'd Last 24 HrsAlbumin Human (ALBUMINAR 25%) 100 ML ONCE ONE IV (DC) Midodrine (PROAMATINE) 5 MG ONCE ONE PO (DC) Midodrine (PROAMATINE) 5 MG 0900,1300,1700 PO Sodium Bicarbonate (SODIUM BICARBONATE) 650 MG BID PO Ipratropium [place] (ATROVENT) 500 MCG RTQ2H PRN PRN INH Lactulose (LACTULOSE) 20 GM DAILY PRN PRN PO Cyanocobalamin (Vitamin B-12 500 mcg tab) 500 MCG DAILY PO Ferrous Sulfate (FERROUS SULFATE) 325 MG DAILY PO Dopamine HCl/Dextrose (DOPamine 400MG/D5W 250ML) 250 ML ASDIR IV Bisacodyl (DULCOLAX) 10 MG ONCE PRN RECTAL Atorvastatin Calcium (LIPITOR) 40 MG 2100 PO Clopidogrel Bisulfate (Plavix) 75 MG DAILY PO Polyethylene Glycol (MIRALAX) 17 GM DAILY PO Miscellaneous Information (PHARMACY TO DOSE/EVALUATE) 1 EACH ASDIR MISC Calcium Chloride (CALCIUM CHLORIDE) 1 GM ASDIR PRN IV Sodium Chloride (SODIUM CHLORIDE 0.9%) 100 MLCalcium Chloride (CALCIUM CHLORIDE) 2 GM ASDIR PRN IV Sodium Chloride (SODIUM CHLORIDE 0.9%) 100 MLMagnesium Sulfate (MAGNESIUM SULFATE 4GM/SWFI 100ML) 100 ML ASDIR PRN IV Magnesium Sulfate (MAGNESIUM SULFATE 2GM/SWFI 50ML) 50 ML ASDIR PRN IV Miscellaneous (PRISMASATE BGK 4/2.5 SOLUTION) 5,000 ML ASDIR DIALYSIS Potassium Chloride (KCL 10MEQ/SWFI 50ML) 50 ML ASDIR PRN IV Sodium Chloride (SODIUM CHLORIDE 0.9%) 2,000 ML ASDIR PRN IV Sodium Phosphate (SODIUM PHOSPHATE) 25 MMOL ASDIR PRN IV Sodium Chloride (SODIUM CHLORIDE 0.9%) 250 MLSodium Phosphate (SODIUM PHOSPHATE) 20 MMOL ASDIR PRN IV Sodium Chloride (SODIUM CHLORIDE 0.9%) 250 MLSodium Phosphate (SODIUM PHOSPHATE) 15 MMOL ASDIR PRN IV Sodium Chloride (SODIUM CHLORIDE 0.9%) 250 MLPantoprazole (PROTONIX) 40 MG DAILY@0600 PO Aspirin (ASPIRIN) 81 MG DAILY PO Vasopressin (VASOSTRICT 20 Unit/NS 100ML) 100 ML ASDIR IV (CKD) Amiodarone HCl (CORDARONE) 200 MG TID PO Docusate Sodium (COLACE) 100 MG BID PO Gabapentin (NEURONTIN) 200 MG BID PO (DC) Mupirocin (BACTROBAN 2% 22 GM OINTMENT) 1 APPLIC BID NASAL (DC) Sennosides (Senna Lax 8.6 MG TABLET) 17.2 MG BEDTIME PO Ipratropium [place] (ATROVENT) 500 MCG RTQ4H INH Acetaminophen (TYLENOL) 650 MG Q4H PRN PRN PO Acetaminophen (TYLENOL) 650 MG Q4H PRN PRN RECTAL Calcium Chloride (CALCIUM CHLORIDE) 1 GM ASDIR PRN IV Dextrose/Water (DEXTROSE 10% IN WATER) 125 ML ASDIR PRN IV (CKD) Dextrose/Water (DEXTROSE 10% IN WATER) 250 ML ASDIR PRN IV (CKD) Epinephrine (ADRENALIN CHLORIDE) 4 MG ASDIR IV Dextrose/Water (DEXTROSE 5% WATER) 246 MLGlucagon (GLUCAGON) 1 MG ASDIR PRN IM Magnesium Sulfate (MAGNESIUM SULFATE 4GM/SWFI 100ML) 100 ML ASDIR PRN IV Magnesium Sulfate (MAGNESIUM SULFATE 2GM/SWFI 50ML) 50 ML ASDIR PRN IV Magnesium Sulfate/Dextrose (MAGNESIUM SULFATE 1GM/D5W 100ML) 100 ML ASDIR PRN IV Nitroglycerin/Dextrose (NITROGLYCERIN 50,000MCG/D5W 250ML) 250 ML ASDIR IV Norepinephrine Bitartrate (NOREPINEPHRINE 8 MG/NS 250 ML) 250 ML TITRATE IV Ondansetron HCl (ZOFRAN) 4 MG Q6H PRN PRN IV Oxycodone HCl (ROXICODONE) 5 MG Q4H PRN PRN PO Oxycodone HCl (ROXICODONE) 10 MG Q4H PRN PRN PO Potassium Chloride (KCL 20MEQ/SWFI 100ML) 100 ML ASDIR PRN IV Sodium Bicarbonate (SODIUM BICARBONATE) 50 MEQ ASDIR PRN IV Sodium Chloride (SODIUM CHLORIDE 0.9%) 250 ML Q24H IV Albumin Human (ALBUMINAR-25%) 12.5 GM ASDIR PRN IV Heparin Sodium (Porcine) (HEPARIN SODIUM) 3,000 UNIT ASDIR PRN DIALYSIS Lidocaine HCl (LIDOCAINE HCL/PF) 0.5 ML ASDIR PRN I-DERMAL (CKD) Mannitol (Mannitol 20%) 12.5 GM ASDIR PRN IV Sodium Chloride (SODIUM CHLORIDE 0.9%) 2,000 ML ASDIR PRN IV Tamsulosin HCl (Flomax 0.4 mg) 0.4 MG BEDTIME PO ResultsRadiology dataRecent Impressions:ULTRASOUND - US RETRO LTD 07/12 1624 Report Impression - Status: SIGNED Entered: 07/13/2022 0651 IMPRESSION: Moderate left hydronephrosis, appears slightly improved compared to prior exam.Findings suggestive of medical renal disease. Impression By: Toro Palma M.D.RADIOLOGY - XR CHEST 1 V 07/13 0552 Report Impression - Status: SIGNED Entered: 07/13/2022 0979 IMPRESSION: Left apical pneumothorax measuring approximately 4 cm, approximately 30%.Otherwise, no significant change.Impression By: Toro Palma M.D. Free Text Obj NotesFree Text Obj Notes:General appearance: Elderly male in no acute distress, interactive and conversationalHEENT: atraumatic, normocephalic, moist mucosal membranesNeck: full range of motion, supple/no meningismusCardiovascular: S1-S2 regular rate and rhythmRespiratory: symmetric expansion, no acute respiratory distressAbdomen: soft, non-tender, no distention, no guardingGenitourinary: waters with clear urineExtremities: pedal pulses palpable, moves all, no cyanosis, mild LE edemaMusculoskeletal: normal inspection, no muscle spasmNeuro/GIFT OFFICER: alert and oriented x3, CNII-XII grossly intact, no motor deficitsSkin: dry, intact and clean surgery dressing Diagnosis, Assessment PlanProblem list/A P: 1. CLAUDETTE (acute kidney injury) 2. CAD (coronary artery disease) 3. Goiter 4. BPH (benign prostatic hyperplasia) 5. Dyslipidemia 6. HTN (hypertension) Free text A P:73-year-old male with Acute pulmonary insufficiency following thoracic surgeryStatus post CABG x 5 (MISTRY-LAD, SVG-Ladonna, SVG-OM1< SVG-OM3, SVG-PDA) and ALAAAcute blood loss anemiaHypotensionIschemic cardiomyopathy, EF 30 to 34%Multivessel CADAKI on hemodialysis Continue mechanical ventilation, vent settings reviewedTitrate FiO2 to keep saturation more than 90%.Spontaneous breathing trial as soon as possibleWean to extubateFollow ABGs and CXRsABG shows metabolic acidosis. Patient received 2 A of sodium bicarb and 1 g of calciumKeep off sedationJudicious pain controlMilrinone drip 0.25Epinephrine dripNorepinephrine dripVasopressin dripTitrate drips to keep MAP more than 65Wean milrinone off first per CV surgeryMinimize fluids per CV surgeryAspirin and PlavixAtorvastatinMetoprololFollow lactate levelMonitor chest tube outputHemodialysis per nephrologyMonitor urine output and kidney functionMonitor and replete electrolytesPerioperative antibioticsCardiac diet with bowel regimen once extubatedBG control with insulin gtt per protocolPT/OTVTE prophylaxis.Stress ulcer prophylaxis.Discussed with CV surgery, anesthesia and ICU teamCritical care time 85 minutes 2/1Appears neuro intact, multimodal pain control, minimize narcotic use, no CO2 narcosisExtubated successfully, sats well on NC, wean O2, monitor for hypercapnia, encourage I-S, obtain serial ABGs, CXR reviewedHD unstable, weaning vasopressors and inotrope, monitor HD parameters, low CVP, lactic acidosis with uptrending lactate, gentle volume resuscitationOliguric CLAUDETTE, plan for CRRT per renal, hyperkalemia treated, obtain serial labPO challenge, bowel regimen, serial abdominal exam, monitor LFTsLeukocytosis postop, likely reactive, trend WBC, s/p antibiotic course for UTI ,periop antibioticsHgb trending down, no evidence of active bleed, monitor CTs output, RBC given HDinstabilityBlood glucose control with insulin drip per protocolEncourage PT/OT and activity as toleratedDVT and GI prophylaxis with DAPT and PPI 2/2Appears neuro intact, multimodal pain control, minimize narcotic usesats well on NC, wean O2, encourage I-S, ABG and CXR reviewedHD fairly stable, on minimal vasopressor support, lactic acidosis cleared s/p resuscitationOliguric CLAUDETTE, tolerated CRRT, holding off per renal, monitor UOP and electrolytes closelyOral diet as tolerated, bowel regimen, monitor LFTsLeukocytosis postop, trend WBC, treated for UTI preopHgb responded to PRBC, no evidence of active bleed, minimal CTs outputBlood glucose control, transitioned insulin drip to SSIEncourage PT/OT and out of bed as toleratedDVT and GI prophylaxis with DAPT and PPI 2/3Remains neuro intact, pain appears well controlledSats well on NC, wean O2, encourage I-S, ABG and CXR reviewedHD unstable, remains on minimal vasopressor support, attempt to wean, start midodrineOliguric CLAUDETTE, off CRRT per renal, minimal UOP, started renal dose dopamine dripTolerating oral diet, continue bowel regimen, LFTs normalizedLeukocytosis postop, continue to trend WBC, treated for UTI preopHgb stable s/p PRBC, no evidence of active bleed, monitor pCT outputBlood glucose control with sliding scale insulinEncourage PT/OT and out of bed as tolerated, CM for dispo planDVT and GI prophylaxis with DAPT and PPI 2/4Remains neuro intact, pain appears well controlledSats well on NC, wean O2, encourage I-S, ABG and CXR reviewedHD unstable, weaning vasopressors, increase midodrine dose, remains in SRAKI, likely postrenal, improved UOP, HD today per renal, hyperkalemia treatedTolerating oral diet, has bowel movement and bowel regimen, LFTs normalizedLeukocytosis, WBC trending down, currently off antibiotics s/p treatment for UTIHgb remains stable s/p PRBC, no evidence of active bleed, minimal CT outputBlood glucose control with sliding scale insulinEncourage PT/OT and out of bed as tolerated, CM for dispo plan, IPR consultedDVT and GI prophylaxis with DAPT and PPI 2/5Remains neuro intact, pain appears well controlledSats well, wean O2, encourage I-S, ABG and CXR reviewed, has left PTXHD stable off vasopressors, increased midodrine doseAKI, likely postrenal, making urine, HD per renal, renal US with hydronephrosisTolerating oral diet, has bowel movement and bowel regimenLeukocytosis, WBC trending down, monitor off antibiotics s/p treatment for UTIHgb remains stable s/p PRBC, no evidence of active bleed, keep CT to suctionBlood glucose control with sliding scale insulinTolerating PT/OT, CM for dispo plan, IPR on boardDVT and GI prophylaxis with DAPT and PPI Consultants: cardiology, cardiovascular surgery, nephrologyPlan discussed with: patient, consultants, nurse, interdisc care teamCritical care time: Minutes: 35 at 0247 [facility] #:[id number] OF REPORTPRProgress [id number] Available for patient [id number] HCACL 2022-07-13 08:51:00 [id number]:00 [facility] ([facility])Cardiology Progress NoteREPORT#:[id number] REPORT STATUS: SignedDATE:07/13/22 TIME: 08 PATIENT: SHERRI ARCE UNIT #: [id number]#: [id number] [address] [birth year] AGE: 81 SEX: M ATTEND: Sarbjit Mcarthur [facility] AUTHOR: Carolyn Penny NP * ALL edits or amendments must be made on the electronic/computer document * SubjectiveChief complaint:Doing okay.Patient reports:No: chest pain, palpitations, shortness of breath. Nursing reports:No: complaints. Comments:Patient sitting in chair, on 2 L nasal cannula.He is sleeping without distress note.Telemetry shows normal sinus rhythm.Chest tube x1.Bilateral lower leg edema. Objective GeneralVS/I O:24 hour I O ending at 0700: 07/12 1900 07/13 699 Intake Total 240 350 Output Total 1756 720 Balance -1516 -370 Intake, Oral 240 350 Output, Chest 120 140 Tube Drainage Output, 1001 Hemodialysis Output, Urine 635 580 Patient 91.1 kg Weight Weight Chair scale Measurement Method Vital Signs: Date Time Temp Pulse Resp B/P B/P Pulse O2 O2 Flow FiO2 Mean Ox Delivery Rate 07/13 0830 110/38 53 07/13 0830 77 26 91/53 67 91 07/13 0800 103/37 54 / 0900 83 22 94/50 67 84 / 0830 106/34 50 / 0830 80 27 93/54 70 96 / 08 98.3 07/13 0800 113/45 63 /05 0800 81 26 100/64 74 88 / 0741 100 Room air 07/13 0630 124/47 62 07/13 0630 75 26 98/53 71 100 07/13 0700 100/42 55 /10 1200 75 26 93/52 67 100 02/05 0600 [...] 02/04 1300 75 28 115/59 81 100 PATIENT WEIGHT: Weight (lb): 200Weight (oz): 13.46Weight (kg): 91.100 Medications:Active Meds + DC'd Last 24 HrsAlbumin Human (ALBUMINAR 25%) 100 ML ONCE ONE IV (DC) Midodrine (PROAMATINE) 5 MG ONCE ONE PO (DC) Midodrine (PROAMATINE) 5 MG 0900,1300,1700 PO Sodium Bicarbonate (SODIUM BICARBONATE) 650 MG BID PO Ipratropium [place] (ATROVENT) 500 MCG RTQ2H PRN PRN INH Midodrine (PROAMATINE) 2.5 MG 0900,1300,1700 PO (DC) Lactulose (LACTULOSE) 20 GM DAILY PRN PRN PO Cyanocobalamin (Vitamin B-12 500 mcg tab) 500 MCG DAILY PO Ferrous Sulfate (FERROUS SULFATE) 325 MG DAILY PO Dopamine HCl/Dextrose (DOPamine 400MG/D5W 250ML) 250 ML ASDIR IV Bisacodyl (DULCOLAX) 10 MG ONCE PRN RECTAL Atorvastatin Calcium (LIPITOR) 40 MG 2100 PO Clopidogrel Bisulfate (Plavix) 75 MG DAILY PO Polyethylene Glycol (MIRALAX) 17 GM DAILY PO Miscellaneous Information (PHARMACY TO DOSE/EVALUATE) 1 EACH ASDIR MISC Calcium Chloride (CALCIUM CHLORIDE) 1 GM ASDIR PRN IV Sodium Chloride (SODIUM CHLORIDE 0.9%) 100 MLCalcium Chloride (CALCIUM CHLORIDE) 2 GM ASDIR PRN IV Sodium Chloride (SODIUM CHLORIDE 0.9%) 100 MLMagnesium Sulfate (MAGNESIUM SULFATE 4GM/SWFI 100ML) 100 ML ASDIR PRN IV Magnesium Sulfate (MAGNESIUM SULFATE 2GM/SWFI 50ML) 50 ML ASDIR PRN IV Miscellaneous (PRISMASATE BGK 4/2.5 SOLUTION) 5,000 ML ASDIR DIALYSIS Potassium Chloride (KCL 10MEQ/SWFI 50ML) 50 ML ASDIR PRN IV Sodium Chloride (SODIUM CHLORIDE 0.9%) 2,000 ML ASDIR PRN IV Sodium Phosphate (SODIUM PHOSPHATE) 25 MMOL ASDIR PRN IV Sodium Chloride (SODIUM CHLORIDE 0.9%) 250 MLSodium Phosphate (SODIUM PHOSPHATE) 20 MMOL ASDIR PRN IV Sodium Chloride (SODIUM CHLORIDE 0.9%) 250 MLSodium Phosphate (SODIUM PHOSPHATE) 15 MMOL ASDIR PRN IV Sodium Chloride (SODIUM CHLORIDE 0.9%) 250 MLPantoprazole (PROTONIX) 40 MG DAILY@0600 PO Aspirin (ASPIRIN) [...] (Senna Lax 8.6 MG TABLET) 17.2 MG BEDTIME PO Ipratropium [place] (ATROVENT) 500 MCG RTQ4H INH Acetaminophen (TYLENOL) 650 MG Q4H PRN PRN PO Acetaminophen (TYLENOL) 650 MG Q4H PRN PRN RECTAL Calcium Chloride (CALCIUM CHLORIDE) 1 GM ASDIR PRN IV Dextrose/Water (DEXTROSE 10% IN WATER) 125 ML ASDIR PRN IV (CKD) Dextrose/Water (DEXTROSE 10% IN WATER) 250 ML ASDIR PRN IV (CKD) Epinephrine (ADRENALIN CHLORIDE) 4 MG ASDIR IV Dextrose/Water (DEXTROSE 5% WATER) 246 MLGlucagon (GLUCAGON) 1 MG ASDIR PRN IM Magnesium Sulfate (MAGNESIUM SULFATE 4GM/SWFI 100ML) 100 ML ASDIR PRN IV Magnesium Sulfate (MAGNESIUM SULFATE 2GM/SWFI 50ML) 50 ML ASDIR PRN IV Magnesium Sulfate/Dextrose (MAGNESIUM SULFATE 1GM/D5W 100ML) 100 ML ASDIR PRN IV Nitroglycerin/Dextrose (NITROGLYCERIN 50,000MCG/D5W 250ML) 250 ML ASDIR IV Norepinephrine Bitartrate (NOREPINEPHRINE 8 MG/NS 250 ML) 250 ML TITRATE IV Ondansetron HCl (ZOFRAN) 4 MG Q6H PRN PRN IV Oxycodone HCl (ROXICODONE) 5 MG Q4H PRN PRN PO Oxycodone HCl (ROXICODONE) 10 MG Q4H PRN PRN PO Potassium Chloride (KCL 20MEQ/SWFI 100ML) 100 ML ASDIR PRN IV Sodium Bicarbonate (SODIUM BICARBONATE) 50 MEQ ASDIR PRN IV Sodium Chloride (SODIUM CHLORIDE 0.9%) 250 ML Q24H IV Albumin Human (ALBUMINAR-25%) 12.5 GM ASDIR PRN IV Heparin Sodium (Porcine) (HEPARIN SODIUM) 3,000 UNIT ASDIR PRN DIALYSIS Lidocaine HCl (LIDOCAINE HCL/PF) 0.5 ML ASDIR PRN I-DERMAL (CKD) Mannitol (Mannitol 20%) 12.5 GM ASDIR PRN IV Sodium Chloride (SODIUM CHLORIDE 0.9%) 2,000 ML ASDIR PRN IV Tamsulosin HCl (Flomax 0.4 mg) 0.4 MG BEDTIME PO Status post:07/08/22 CABG x 5 (MISTRY-LAD, SVG-Ladonna, SVG-OM1< SVG-OM3, SVG-PDA) ALAA Physical ExamGeneral appearance: alert, awake, no acute distress, mental status normal, no respiratory distressHead/Eyes: atraumaticENT: moist mucosal membranesNeck: no JVDCardiovascular: CV assessment: regular rate and rhythm, no murmurRespiratory: decreased breath sounds, no distressAbdomen: soft, non-tender, normal bowel sounds, no distention, no guardingUpper extremity: UE assessment: normal temperature, no edemaLower extremity: LE assessment: edema (RLE trace), normal temperature, no edemaMusculoskeletal: normal inspectionNeuro/GIFT OFFICER: alert, oriented X 3, normal speechSkin: dryPsychiatry: normal affect ResultsFindings/Data:Laboratory Tests 07/13 07/13 030 1029 Blood Gas Puncture Site Art Line [...] (Auto) (14.0 - 32.0 %) 7.0 L Starke % (Auto) (4.8 - 9.0 %) 8.8 Eos % (Auto) (0.3 - 3.7 %) 6.4 H Baso % (Auto) (0.0 - 2.0 %) 0.5 Neut # (Auto) (2.0 - 7.6 x10 3/uL) 10.04 H Lymph # (Auto) (1.0 - 3.8 x10 3/uL) 0.93 L Starke # (Auto) (0.1 - 0.8 x10 3/uL) 1.17 H Eos # (Auto) (0.0 - 0.2 x10 3/uL) 0.85 H Baso # (Auto) (0.0 - 0.2 x10 3/uL) 0.07 Abs Immat Gran (auto) (0.00 - 0.03 x10 3/uL) 0.17 H Add Manual Diff NO Immature Gran % (0.0 - 2.0 %) 1.3 Nucleated RBC % (0 - 0 %) 0.0 Nucleated RBCs # (Man) (0.0 - 0.1 x10 3/uL) 0.00 Laboratory Tests 07/13 0300 Chemistry Magnesium (1.80 - 2.40 mg/dL) 2.29 Radiology data:Recent Impressions:ULTRASOUND - US RETRO LTD 07/12 1624 Report Impression - Status: SIGNED Entered: 07/13/2022 0651 IMPRESSION: Moderate left hydronephrosis, appears slightly improved compared to prior exam.Findings suggestive of medical renal disease. Impression By: Toro Palma M.D.RADIOLOGY - XR CHEST 1 V 07/13 0652 Report Impression - Status: SIGNED Entered: 07/13/2022 0915 IMPRESSION: Left apical pneumothorax measuring approximately 4 cm, approximately 30%.Otherwise, no significant change.Impression By: Toro Palma M.D. Results: labs reviewed, vital signs reviewed, vital signs stable, rhythm personally rev'd, US results reviewed, current med profile rev'dTelemetry Interpretation:Normal sinus rhythm Treatment Prophylaxis Treatment ProphylaxisDrain(s)/tube(s): Drain(s)/tube(s): chest Diagnosis, Assessment PlanProblem List/A P: 1. HTN (hypertension) 2. CLAUDETTE (acute kidney injury) 3. CAD (coronary artery disease) 4. Dyslipidemia 5. BPH (benign prostatic hyperplasia) Consultants: cardiology, cardiovascular surgery, nephrologyPlan discussed with: patient, nurse Free Text DxA P NotesFree Text DxA P Notes:Mr. Arce is a pleasant 81 y/o M w/ PMHx: HTN, HLD presented to [facility] on 06/28/22 for chest pain and sob. He was diagnosed NSTEMI w/ [...] and diffuse 50-60% dRCA. He transferred to [facility] for CABG. - CAD/NSTEMI s/p CABG CABG x 5 (MISTRY-LAD, SVG-Ladonna, SVG-OM1< SVG-OM3, SVG-PDA)ALAA On statins, BB, ASA, plavix Echo: LVEF 30-34%, Postop care per CTS - Acute Systolic HF with ischemic CMP LVEF 30-34% strict I/Os, daily weights, fluid restriction, low NA diet diuresis as needed per Nephrology no charly/arb/aldactone due to CLAUDETTE Iniriate GDMT as tolerated, when of pressors persistent hypotension - on vaso and low dose Dopamine repeat echocardiogram - CLAUDETTE. HD Per nephro. likely from obstructive uropathy. s/p waters cath. Renal ultrasound showed severe thickening of the bladder, cholelitiasis. - HTN. hypotension post-op off Pressors. Midodrine 5mg po tid. - HLD. On statins. - Anemia. monitor - Oliguric. Per nephro. On HD today. Worsen creatinine today. CV stable. at 1243 at 1315 RPT #:[id number] OF REPORTPRProgress [id number] Available for patient [id number]:26 [facility] 2022-07-13 06:50:00 [id number]:50:00 [facility] ([facility])Rehab Progress NoteREPORT#:[id number] REPORT STATUS: SignedDATE:07/13/22 TIME: 0650 PATIENT: SHERRI ARCE UNIT #: [id number]#: [id number] [address] [birth year] AGE: 81 SEX: M ATTEND: Sarbjit Mcarthur MDADM AUTHOR: Magdaleno Washburn * ALL edits or amendments must be made on the electronic/computer document * SubjectiveChief complaint:Rehab follow-upSeen in CCUDoing fairFatigues easilySat up in chair for a while Denies NAIK/N/V/D/CP14 systems reviewed and neg. except that above. Objective GeneralVS:Vital Signs: Date Time Temp Pulse Resp B/P B/P Pulse O2 O2 Flow FiO2 Mean Ox Delivery Rate 07/13 0400 98.5 02/ 0345 100 Nasal 5 cannula 07/13 0000 97.6 07/12 2050 100 Nasal 5 cannula 07/12 1999 98.1 07/12 1999 Nasal 5 cannula 02/ 1657 70 32 105/41 58 100 02/04 [...] 71 27 136/58 97 Nasal 7 cannula /04 0830 92/35 50 02/04 0830 78 28 90/53 66 96 02/04 0800 5 02/04 0800 131/56 77 02/04 0800 71 26 105/63 79 96 PATIENT WEIGHT: Weight (lb): 200Weight (oz): 13.46Weight (kg): 91.100 Medications:Active Meds + DC'd Last 24 HrsAlbumin Human (ALBUMINAR 25%) 100 ML ONCE ONE IV (DC) Midodrine (PROAMATINE) 5 MG ONCE ONE PO (DC) Midodrine (PROAMATINE) 5 MG 0900,1300,1700 PO Sodium Bicarbonate (SODIUM BICARBONATE) 650 MG BID PO Ipratropium [place] (ATROVENT) 500 MCG RTQ2H PRN PRN INH Midodrine (PROAMATINE) 2.5 MG 0900,1300,1700 PO (DC) Lactulose (LACTULOSE) 20 GM DAILY PRN PRN PO Cyanocobalamin (Vitamin B-12 500 mcg tab) 500 MCG DAILY PO Ferrous Sulfate (FERROUS SULFATE) 325 MG DAILY PO Dopamine HCl/Dextrose (DOPamine 400MG/D5W 250ML) 250 ML ASDIR IV Bisacodyl (DULCOLAX) 10 MG ONCE PRN RECTAL Atorvastatin Calcium (LIPITOR) 40 MG 2100 PO Clopidogrel Bisulfate (Plavix) 75 MG DAILY PO Polyethylene Glycol (MIRALAX) 17 GM DAILY PO Miscellaneous Information (PHARMACY TO DOSE/EVALUATE) 1 EACH ASDIR MISC Calcium Chloride (CALCIUM CHLORIDE) 1 GM ASDIR PRN IV Sodium Chloride (SODIUM CHLORIDE 0.9%) 100 MLCalcium Chloride (CALCIUM CHLORIDE) 2 GM ASDIR PRN IV Sodium Chloride (SODIUM CHLORIDE 0.9%) 100 MLMagnesium Sulfate (MAGNESIUM SULFATE 4GM/SWFI 100ML) 100 ML ASDIR PRN IV Magnesium Sulfate (MAGNESIUM SULFATE 2GM/SWFI 50ML) 50 ML ASDIR PRN IV Miscellaneous (PRISMASATE BGK 4/2.5 SOLUTION) 5,000 ML ASDIR DIALYSIS Potassium Chloride (KCL 10MEQ/SWFI 50ML) 50 ML ASDIR PRN IV Sodium Chloride (SODIUM CHLORIDE 0.9%) 2,000 ML ASDIR PRN IV Sodium Phosphate (SODIUM PHOSPHATE) 25 MMOL ASDIR PRN IV Sodium Chloride (SODIUM CHLORIDE 0.9%) 250 MLSodium Phosphate (SODIUM PHOSPHATE) 20 MMOL ASDIR PRN IV Sodium Chloride (SODIUM CHLORIDE 0.9%) 250 MLSodium Phosphate (SODIUM PHOSPHATE) 15 MMOL ASDIR PRN IV Sodium Chloride (SODIUM CHLORIDE 0.9%) 250 MLPantoprazole (PROTONIX) 40 MG DAILY@0600 PO Aspirin (ASPIRIN) [...] (Senna Lax 8.6 MG TABLET) 17.2 MG BEDTIME PO Ipratropium [place] (ATROVENT) 500 MCG RTQ4H INH Acetaminophen (TYLENOL) 650 MG Q4H PRN PRN PO Acetaminophen (TYLENOL) 650 MG Q4H PRN PRN RECTAL Calcium Chloride (CALCIUM CHLORIDE) 1 GM ASDIR PRN IV Dextrose/Water (DEXTROSE 10% IN WATER) 125 ML ASDIR PRN IV (CKD) Dextrose/Water (DEXTROSE 10% IN WATER) 250 ML ASDIR PRN IV (CKD) Epinephrine (ADRENALIN CHLORIDE) 4 MG ASDIR IV Dextrose/Water (DEXTROSE 5% WATER) 246 MLGlucagon (GLUCAGON) 1 MG ASDIR PRN IM Magnesium Sulfate (MAGNESIUM SULFATE 4GM/SWFI 100ML) 100 ML ASDIR PRN IV Magnesium Sulfate (MAGNESIUM SULFATE 2GM/SWFI 50ML) 50 ML ASDIR PRN IV Magnesium Sulfate/Dextrose (MAGNESIUM SULFATE 1GM/D5W 100ML) 100 ML ASDIR PRN IV Nitroglycerin/Dextrose (NITROGLYCERIN 50,000MCG/D5W 250ML) 250 ML ASDIR IV Norepinephrine Bitartrate (NOREPINEPHRINE 8 MG/NS 250 ML) 250 ML TITRATE IV Ondansetron HCl (ZOFRAN) 4 MG Q6H PRN PRN IV Oxycodone HCl (ROXICODONE) 5 MG Q4H PRN PRN PO Oxycodone HCl (ROXICODONE) 10 MG Q4H PRN PRN PO Potassium Chloride (KCL 20MEQ/SWFI 100ML) 100 ML ASDIR PRN IV Sodium Bicarbonate (SODIUM BICARBONATE) 50 MEQ ASDIR PRN IV Sodium Chloride (SODIUM CHLORIDE 0.9%) 250 ML Q24H IV Albumin Human (ALBUMINAR-25%) 12.5 GM ASDIR PRN IV Heparin Sodium (Porcine) (HEPARIN SODIUM) 3,000 UNIT ASDIR PRN DIALYSIS Lidocaine HCl (LIDOCAINE HCL/PF) 0.5 ML ASDIR PRN I-DERMAL (CKD) Mannitol (Mannitol 20%) 12.5 GM ASDIR PRN IV Sodium Chloride (SODIUM CHLORIDE 0.9%) 2,000 ML ASDIR PRN IV Tamsulosin HCl (Flomax 0.4 mg) 0.4 MG BEDTIME PO Functional ProgressFunctional progress: Lateral Scooting Right: Moderate Assistance Lateral Scooting Left: Moderate Assistance Supine to/from sitting: Maximal Assistance Sit to Stand: Moderate Assistance Pivot Transfer: Minimal Assistance Bed to/from chair: Minimal Assistance Activities Performed Cmt: BED MOBILITY EXERCISES, FT TRAINING, ENDURANCE TRAINING, SAFETY EDUCATION. Assistive [...] UP TO 120/60s. NEEDS WITHIN REACH AND REVOLVING FIELD ASSEMBLER AWARE OF PATIENT'S STATUS. Physical ExamGeneral appearance: alert, awakePsych: alert, oriented x 3HEENT: anicteric, sclera clearNeck: supple, no JVDCardiovascular: regular rate rhythm, S1/X2Rtrlctdfqqk: aerating well, clear bilaterallyAbdomen: bowel sounds present, non-distended, softSkin: intact, no rashMusculoskeletal - general: Musculoskeletal - general: joints normal, normal muscle mass, normal toneNeuro/GIFT OFFICER: alert, oriented X 3, CNII-XII intact ResultsFindings/Data:Laboratory Tests: 07/13 07/13 07/12 0304 0300 1150 [...] - 32.0 %) 7.0 L 3.6 L Starke % (Auto) (4.8 - 9.0 %) 8.8 5.3 Eos % (Auto) (0.3 - 3.7 %) 6.4 H 4.4 H Baso % (Auto) (0.0 - 2.0 %) 0.5 0.4 Neut # (Auto) (2.0 - 7.6 x10 3/uL) 10.04 H 13.83 H Lymph # (Auto) (1.0 - 3.8 x10 3/uL) 0.93 L 0.59 L Starke # (Auto) (0.1 - 0.8 x10 3/uL) 1.17 H 0.87 H Eos # (Auto) (0.0 - 0.2 x10 3/uL) 0.85 H 0.72 H Baso # (Auto) (0.0 - 0.2 x10 3/uL) 0.07 0.07 Abs Immat Gran (auto) (0.00 - 0.03 x10 3/uL) 0.17 H 0.21 H Add Manual Diff NO NO Immature Gran % (0.0 - 2.0 %) 1.3 1.3 Nucleated RBC % (0 - 0 %) 0.0 0.0 Nucleated RBCs # (Man) (0.0 - 0.1 x10 3/uL) 0.00 0.00 Diagnosis, Assessment PlanFree Text A P:Non-STEMIMultivessel CADS/p CABG p6Hedeerbe deconditioningImpaired mobility and gaitPostoperative anemiaDyslipidemiaHypertensionAKIAcute systolic heart failureHemodynamic issues postopLeukocytosis trending down Plan:Continue PT/OTOut of bed to chairWork on strength, bed mobility, transfers, gaitSternal precautionIncrease enduranceFall precautionsMonitor p.o. intake and nutritionStrict decubitus precautionsAdvance therapies as toleratedNephrology managing renal issuesIRF consulted. Will require insurance approval Total time was 33 minutes > 50% with patient performing physical examination, discussing plan of care, goals, therapies, progress, medications, labs. All questions answeredRehab attestation:, at 2155 RPT #:[id number] OF REPORTPRProgress [id number] Available for patient [id number] [facility] 2022-07-13 06:19:00 [id number]:19:00 [facility] ([facility])Cardiothoracic Surgery ProgREPORT#:[id number] REPORT STATUS: SignedDATE:07/13/22 TIME: 618 PATIENT: SHERRI ARCE UNIT #: [id number]#: [id number] [address] [birth year] AGE: 81 SEX: M ATTEND: Srinath Kaur [facility] AUTHOR: Gianna Hoover * ALL edits or amendments must be made on the electronic/computer document * GeneralPost-op: day 5Status post:07/08/22 CABG x 5 (MISTRY-LAD, SVG-Ladonna, SVG-OM1< SVG-OM3, SVG-PDA) ALEXIS TATUM (RGSV) SubjectiveChief complaint:s/p CABGno complaints Review of SystemsConstitutional:Denies: chills, fever, malaise. Allergy/Immun:Denies: allergic reaction. Respiratory:Denies: SOB. Cardiovascular:Denies: chest pain, palpitations. GI:Denies: abdominal pain, nausea, vomiting. :Denies: dysuria, hematuria. Heme:Denies: bleeding. Neuro:Denies: dizziness, headache, vision change. All systems rev neg: except as marked Objective GeneralVS/I OLast Documented: Result Date Time Pulse Ox 100 07/13 0345 O2 Delivery Nasal cannula 07/13 0345 O2 Flow Rate 5 07/13 0345 Temp [...] Output, Urine 625 PATIENT WEIGHT: Weight (lb): 207Weight (oz): 7.28Weight (kg): 94.100 Dietitian Nutrition assessmentThe data set between the solid lines has been imported from the dietitian's assessment. BMI Calculated: 27.2Nutrition related diagnosis: Nutrition diagnosis details: Nutrition problem: Increased nutrient needsNutrition etiology: Chronic diseaseNutrition signs and symptoms: ESTIMATED NEEDS S/P CABGNutrition prescription: 1. RECOMMEND CONTIUE CARDIAC DIET, MONITOR LABS WITH PTON DIALYSIS. 2. CONTINUE NEPRO BID. 3. DIET EDUCATION PRIOR TO DISCHARGE. 4. MONITOR PO, WT, LABS, BM.Dietitian name: Trang Rodriguez, DIETAssessment completed: 07/10/22 Physical ExamGeneral appearance: alert, awake, orientedWound/incision: Location:sternal Site condition: dressing clean dry, dressing intactHEENT: anicteric, mucosal membranes moistNeck: supple/no meningismusCardiovascular: normal heart sounds, regular rate rhythmRespiratory: aerating well, symmetric expansion, no distressAbdomen: soft, non-tender, no distentionGenitourinary: waters, oN hd Extremities: moves allNeuro/GIFT OFFICER: alert, oriented X 3, normal speech, no motor deficitsPsychiatry: normal affect, normal mood Current MedicationsMedications:Active Meds + DC'd Last 24 HrsAlbumin Human (ALBUMINAR 25%) 100 ML ONCE ONE IV (DC) Midodrine (PROAMATINE) 5 MG ONCE ONE PO (DC) Midodrine (PROAMATINE) 5 MG 0900,1300,1700 PO Sodium Bicarbonate (SODIUM BICARBONATE) 650 MG BID PO Ipratropium [place] (ATROVENT) 500 MCG RTQ2H PRN PRN INH Lactulose (LACTULOSE) 20 GM DAILY PRN PRN PO Cyanocobalamin (Vitamin B-12 500 mcg tab) 500 MCG DAILY PO Ferrous Sulfate (FERROUS SULFATE) 325 MG DAILY PO Dopamine HCl/Dextrose (DOPamine 400MG/D5W 250ML) 250 ML ASDIR IV Bisacodyl (DULCOLAX) 10 MG ONCE PRN RECTAL Atorvastatin Calcium (LIPITOR) 40 MG 2100 PO Clopidogrel Bisulfate (Plavix) 75 MG DAILY PO Polyethylene Glycol (MIRALAX) 17 GM DAILY PO Miscellaneous Information (PHARMACY TO DOSE/EVALUATE) 1 EACH ASDIR MISC Calcium Chloride (CALCIUM CHLORIDE) 1 GM ASDIR PRN IV Sodium Chloride (SODIUM CHLORIDE 0.9%) 100 MLCalcium Chloride (CALCIUM CHLORIDE) 2 GM ASDIR PRN IV Sodium Chloride (SODIUM CHLORIDE 0.9%) 100 MLMagnesium Sulfate (MAGNESIUM SULFATE 4GM/SWFI 100ML) 100 ML ASDIR PRN IV Magnesium Sulfate (MAGNESIUM SULFATE 2GM/SWFI 50ML) 50 ML ASDIR PRN IV Miscellaneous (PRISMASATE BGK 4/2.5 SOLUTION) 5,000 ML ASDIR DIALYSIS Potassium Chloride (KCL 10MEQ/SWFI 50ML) 50 ML ASDIR PRN IV Sodium Chloride (SODIUM CHLORIDE 0.9%) 2,000 ML ASDIR PRN IV Sodium Phosphate (SODIUM PHOSPHATE) 25 MMOL ASDIR PRN IV Sodium Chloride (SODIUM CHLORIDE 0.9%) 250 MLSodium Phosphate (SODIUM PHOSPHATE) 20 MMOL ASDIR PRN IV Sodium Chloride (SODIUM CHLORIDE 0.9%) 250 MLSodium Phosphate (SODIUM PHOSPHATE) 15 MMOL ASDIR PRN IV Sodium Chloride (SODIUM CHLORIDE 0.9%) 250 MLPantoprazole (PROTONIX) 40 MG DAILY@0600 PO Aspirin (ASPIRIN) 81 MG DAILY PO Vasopressin (VASOSTRICT 20 Unit/NS 100ML) 100 ML ASDIR IV (CKD) Amiodarone HCl (CORDARONE) 200 MG TID PO Docusate Sodium (COLACE) 100 MG BID PO Gabapentin (NEURONTIN) 200 MG BID PO (DC) Mupirocin (BACTROBAN 2% 22 GM OINTMENT) 1 APPLIC BID NASAL (DC) Sennosides (Senna Lax 8.6 MG TABLET) 17.2 MG BEDTIME PO Ipratropium [place] (ATROVENT) 500 MCG RTQ4H INH Acetaminophen (TYLENOL) 650 MG Q4H PRN PRN PO Acetaminophen (TYLENOL) 650 MG Q4H PRN PRN RECTAL Calcium Chloride (CALCIUM CHLORIDE) 1 GM ASDIR PRN IV Dextrose/Water (DEXTROSE 10% IN WATER) 125 ML ASDIR PRN IV (CKD) Dextrose/Water (DEXTROSE 10% IN WATER) 250 ML ASDIR PRN IV (CKD) Epinephrine (ADRENALIN CHLORIDE) 4 MG ASDIR IV Dextrose/Water (DEXTROSE 5% WATER) 246 MLGlucagon (GLUCAGON) 1 MG ASDIR PRN IM Magnesium Sulfate (MAGNESIUM SULFATE 4GM/SWFI 100ML) 100 ML ASDIR PRN IV Magnesium Sulfate (MAGNESIUM SULFATE 2GM/SWFI 50ML) 50 ML ASDIR PRN IV Magnesium Sulfate/Dextrose (MAGNESIUM SULFATE 1GM/D5W 100ML) 100 ML ASDIR PRN IV Nitroglycerin/Dextrose (NITROGLYCERIN 50,000MCG/D5W 250ML) 250 ML ASDIR IV Norepinephrine Bitartrate (NOREPINEPHRINE 8 MG/NS 250 ML) 250 ML TITRATE IV Ondansetron HCl (ZOFRAN) 4 MG Q6H PRN PRN IV Oxycodone HCl (ROXICODONE) 5 MG Q4H PRN PRN PO Oxycodone HCl (ROXICODONE) 10 MG Q4H PRN PRN PO Potassium Chloride (KCL 20MEQ/SWFI 100ML) 100 ML ASDIR PRN IV Sodium Bicarbonate (SODIUM BICARBONATE) 50 MEQ ASDIR PRN IV Sodium Chloride (SODIUM CHLORIDE 0.9%) 250 ML Q24H IV Albumin Human (ALBUMINAR-25%) 12.5 GM ASDIR PRN IV Heparin Sodium (Porcine) (HEPARIN SODIUM) 3,000 UNIT ASDIR PRN DIALYSIS Lidocaine HCl (LIDOCAINE HCL/PF) 0.5 ML ASDIR PRN I-DERMAL (CKD) Mannitol (Mannitol 20%) 12.5 GM ASDIR PRN IV Sodium Chloride (SODIUM CHLORIDE 0.9%) 2,000 ML ASDIR PRN IV Tamsulosin HCl (Flomax 0.4 mg) 0.4 MG BEDTIME PO ResultsFindings/Data:Laboratory Tests 07/13 0304 Blood Gas Puncture Site [...] - 32.0 %) 7.0 L 3.6 L Starke % (Auto) (4.8 - 9.0 %) 8.8 5.3 Eos % (Auto) (0.3 - 3.7 %) 6.4 H 4.4 H Baso % (Auto) (0.0 - 2.0 %) 0.5 0.4 Neut # (Auto) (2.0 - 7.6 x10 3/uL) 10.04 H 13.83 H Lymph # (Auto) (1.0 - 3.8 x10 3/uL) 0.93 L 0.59 L Starke # (Auto) (0.1 - 0.8 x10 3/uL) 1.17 H 0.87 H Eos # (Auto) (0.0 - 0.2 x10 3/uL) 0.85 H 0.72 H Baso # (Auto) (0.0 - 0.2 x10 3/uL) 0.07 0.07 Abs Immat Gran (auto) (0.00 - 0.03 x10 3/uL) 0.17 H 0.21 H Add Manual Diff NO NO Immature Gran % (0.0 - 2.0 %) 1.3 1.3 Nucleated RBC % (0 - 0 %) 0.0 0.0 Nucleated RBCs # (Man) (0.0 - 0.1 x10 3/uL) 0.00 0.00 Radiology data:Recent Impressions:ULTRASOUND - US RETRO LTD 07/12 1624 Report Impression - Status: SIGNED Entered: 07/13/2022 0651 IMPRESSION: Moderate left hydronephrosis, appears slightly improved compared to prior exam.Findings suggestive of medical renal disease. Impression By: Toro Palma M.D.RADIOLOGY - XR CHEST 1 V 07/13 0652 Report Impression - Status: SIGNED Entered: 07/13/2022 0915 IMPRESSION: Left apical pneumothorax measuring approximately 4 cm, approximately 30%.Otherwise, no significant change.Impression By: Toro Palma M.D. Results: labs reviewed, vital signs stable, rythm personally rev'd, x-ray personally reviewed, current med profile rev'd Quality: Trauma Gen Surg Advanced Care Plan 65 or OlderDiscussed with: patientDiscussion included: living will (none), power of school commissioner (none), code status (full code) VTE Prophylaxis - GeneralVTE prophylaxis initiated: yes Diagnosis, Assessment PlanHospital course to date:This is a 81-year-old gentleman who presented to an outside hospital with complaints of chest pains while walking at his home on Thursday. He denies any previous history of coronary artery disease or other [place]. He was seen and evaluated at [facility]. He was found to have a urinary tract infection with urinary retention and acute kidney. He was started on dialysis via a left femoral temporary catheter. He underwent dialysis on Thursday, Thursday. Renal has been consultedDuring his work-up at outside hospital he underwent Left heart catheterization showing severe Left Main 70%. LAD: Proximal diffuse 80% stenosis and then diffuse 60% in the midsegment and on the distal segment, there is focal 70% stenosis. Diagonal branches with luminal irregularities. Left circumflex, codominant circulation with proximal 80%, mid 80 to 90% and then in the OM, there is proximal 60%, distal left circumflex has a 70% stenosis. RCA large and dominant with proximal 40% stenosis, mid 60% stenosis and then diffuse 50% stenosis all the way distally and the PLV and the PDA with luminal irregularities. CV surgery consulted for evaluation for coronary bypass graft. CAROTIDS- No carotid stenosis CT chest complete IMPRESSION: Small bilateral pleural effusions with bibasilar atelectasis. Echo:1. Left ventricle: The cavity size is at the upper limits of normal. Wall thickness is mildly increased. Systolic function is severely reduced. The estimated ejection fraction is 30-34%. Moderate hypokinesis of the entire myocardium. Doppler parameters are consistent with abnormal left ventricular relaxation (grade 1 diastolic dysfunction).2. Pericardium, extracardiac: A small pericardial effusion is identified along the left ventricular free wall, along the right ventricular free wall, and along the right atrial free wall. Assessment/Plan1) CAD Mutlivessel Will obtain echo,carotids. 2) CLAUDETTE Started dialysis on Creatine 7.3 Renal consulted. 3) BPH- Urinary retention. Waters in place Workup for CABG underway. Will get functional assessment with PT. PFT pending Carotid dopplers- No disease Echo PendingDialyiss per Renal. Baseline Cr unknown. 07/04 07/04 Doing well today, alert, up in the chair. Denies chest painEchocardiogram showed LVEF 30 to 34%, mild MR, trivial TRCT chest images reviewedEncourage I-S and mobilizationCreatinine 5.5 from 7.3, good urine output. Renal US showed bilateral severe hydronephrosis. Plan for HD today and tomorrow Will tentatively schedule patient for surgery on Thursday.Patient seen and plan reviewed with Dr Schwarz 07/05 Remains in a stable condition, denies chest pain BUN 53, creatinine 5.4. Plan for hemodialysis today and tomorrow for clearanceHe is also on Lasix 20 mg IV twice daily, urine output 1.1 L overnightWe will calculate risk of surgery with STS scoreEncourage I-S and mobilizationWill tentatively schedule patient for surgery on Thursday.Pt seen and plan reviewed with Dr Schwarz 07/06 BUN 36, creatinine 4.4. Plan for hemodialysis todayAwaiting CABG tomorrowSurgery, risks involved, STS score, benefits, complications and alternatives were explained to the patient. He acknowledged understanding and is willing to proceedN.p.o. after midnightPatient seen and plan reviewed with Dr. Schwarz 07/09/22OUMOU 1CABG x 5 (MISTRY-LAD, SVG-Ladonna, SVG-OM1< SVG-OM3, SVG-PDA), ALAA, EVH (RGSV)Patient hemodynamically unstable, on epi at 4, and vaso .04, decreased uop overnight- 150ccStarted patient on CRRT 2k/3.5Wean epi as tolerated, Cardiac incex 2.8-3labs and chest x-ray reviewed, electrolytes stable, hgb 6.5- transfuse 2 units PRBCOn 4l nasal cannula- encourage incentive spirometer and deep breathingKeep both chest tubes and monitor outputsGlycemic control on insulin dripCardiac dietBowel regimen protocolPain managementSCDs for DVT and PPI for GI prophylaxisPT/OTMonitor patient closely in CVICUPlan of care discussed with Dr. Schwarz 07/10/22POAdeola 2Patient alert, awake, and oriented, no distres notedlabs and CXR reviewed stableBreathing comfortably on 3l nasal cannula- wean as tolerated to melissa O2 sats > 92%Encourage I-S use and deep breathingOn CRRT- able to remove 2.9L overnight- nephrology followingCardiac index 3.1- wean off epi dripKeep chest tubes for now and monitor outputsTransition to sliding scale insulin- cardiac dietTry to get patient out of bed to chair today- ambulate with PT/OTSCDs for DVT prophylaxisKeep patient in CVICU for close monitoring 07/11/22 3Patient in stable condition, overnight events noted- decreased urine output 35 ml last night-started on dopamine gtt for renal perfusionCardiac index 3.5- epi currently at 2- will discontinue today, vasopressin at 0.02, added low dose midodrine 2.5 mg TID, repeat echocardiogram.Renal Following- trial LasixPatient has Left femoral temp dialysis cath, Will need tunneled dialysis IJ cathplaced if need dialysis. On 5l nasal cannula- wean off as tolerated, encourage incentive spirometer and deep breathingKeep left pleural chest tube and monitor output- > 200 cc Tolerating diet, bowel regimen protocolPT/OT- patient out of bed to chair today- encourage ambulationDVT prophylaxis with SCDsMonitor patient closely in CVICUPlan discussed with multidisciplinary teamPlan discussed with Dr Schwarz/ Dr Rodríguez 07/12/22PO 5,Patient resting comfortable. Patient with hx of urinary retention- After standing today- voided 1.4 L. Needs Urology consult for retention K 5.4- HD in progress. Dr Plaza following. CT output 20- DC today. Pacers remain in place. 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 Card: Remains in sinus rhythm. Respir: on 7 L NC O2 95%Dispo: Rehab consultedPatient seen and exmained by Dr Rodríguez. Plan discussed with Team 07/13/22 5Patient with no new complaints. Recieved HD yesterday.Requiring less oxygen, now on 3l nasal cannula- continue to wean offCXR reviewed left apical pneumothorax 4cm/30%, Chest tube drained 140 overnight,placed back on suction to clear pneumo, CT drianed 200cc this AM. on suction. Labs reviewed- stable, decreased WBC, hgb stable, CR 3.9Eating welll, +BMUO- 550CC, BP improved on midodrine. Continue PT/OT, ambulation and incentive spirometer useRehab folowing Monitor in ICU todayDisucssed with Dr Schwarz- DC femoral line and Central line today. DC art line. Will re-eval need for dialysis cath Thursday. Consider tunnelled cath if need.Patient seen and examined by Dr Rodríguez. Plan discussed with Care team. Consultants: cardiology, cardiovascular surgery, nephrology at 1145 at 1944 RPT #:[id number] OF REPORTPRProgress [id number]:19:[id number] Available for patient [id number]:46:35 [facility] 2022-07-12 20:51:00 [id number] [place] [address] PATIENT NAME: SHERRI ARCE ADMIT DATE: 07/02/22ACCOUNT NO: [id number] ROOM NO: G.2202 AGE: 81 REPORT TYPE: eECHOCARDIOGRAM REPORT SEX: M ADMITTING PHYSICIAN:Radha Ward MD ATTENDING PHYSICIAN:Sarbjit Mcarthur MD *[place], [place] [address]Phone: Aex: [phone] Transthoracic Echocardiogram Patient: Lexus Arceudesequiel Date: 07/11/2022 BP: 128 / 44 Location: JESLURN: [id number] : 1940 Age: 81 Height: 72 in / 183 cmAccession#: [id number] Gender: M Weight: 202.4 lb / 92 kgBMI/BSA: 27.5 kg/m 2 / 2.18 m 2 *Ordering Physician: * Edwardo Flannery *Interpreting Physician: * Mame Alexis MD*Personnel Research Scientist: * Desire Tsang [facility] Indications: HYPOTENSION. Study data: Transthoracic echocardiogram. Procedure: Transthoracicechocardiography was performed. Images were obtained using a Lottay cardiacultrasound machine. Image quality was adequate. The study wastechnically limited due to poor acoustic window availability andsurgical dressings. The parasternal window was low, thus no M-modemeasurements were recorded. Complete 2D, complete spectral Doppler, andcolor Doppler. Location: Bedside. Patient status: Inpatient. Patientroom number: [id number]. Study status: Stat. Findings Left ventricle: The cavity size is at the upper limits of normal. Wallthickness is mildly increased. Systolic function is severely reduced.The estimated ejection fraction is 20-24%. Regional wall motionabnormalities: Severe hypokinesis of the entire myocardium. FeaturesPATIENT NAME: SHERRI ARCE are consistent with a pseudonormal left ventricular filling pattern,with concomitant abnormal relaxation and increased filling pressure(grade 2 diastolic dysfunction).Right ventricle: The cavity size is normal. Pacer wire noted in theright ventricle. Systolic function is mildly reduced.Left atrium: The atrium is at the upper limits of normal in size.Right atrium: The atrium is normal in size. Pacer wire noted in rightatrium.Aorta: Aortic root: The aortic root is normal in size.Aortic valve: The valve is structurally normal. The valve istrileaflet. There is no evidence of stenosis. There is noregurgitation.Mitral valve: The leaflets are mildly thickened. There is no evidenceof stenosis. There is mild regurgitation.Tricuspid valve: The valve is structurally normal. There is trivialregurgitation.Pulmonic valve: Not visualized.Pericardium: A trivial pericardial effusion is identified along theright ventricular free wall. There is a right pleural effusion.Pulmonary arteries:Main pulmonary artery: The artery is of normal size.Systemic veins:Inferior vena cava: The vessel is dilated. Respirophasic changes indimension are absent. Measurements Left ventricle Value 07/03/2022 [...] PW, ED 1.1 cm 1.3 0.6 - 1.0PATIENT NAME: SHERRI ARCE IVS/PW, ED 1.06 0.84 [...] ES, A/L 34 Right atrium Value 07/03/2022 RefPATIENT NAME: SHERRI ARCE Area, ES 21 cm [...] ---- ratio Pulmonic valve Value 07/03/2022 Ref [place] v, ED 2.52 m/sec 0.72 ---- [place] grad, 25 mm Hg ---- ED Conclusions Summary: 1. Left ventricle: The cavity size is at the upper limits of normal. Wall thickness is mildly increased. Systolic function is severely reduced. The estimated ejection fraction is 20-24%. Severe hypokinesis of the entire myocardium. Features are consistent with a pseudonormal left ventricular filling pattern, with concomitantPATIENT NAME: SHERRI ARCE abnormal relaxation and increased filling pressure (grade 2 diastolic dysfunction).2. Right ventricle: Systolic function is mildly reduced.3. Pericardium, extracardiac: A trivial pericardial effusion is identified along the right ventricular free wall. There is a right pleural effusion. Prepared and electronically signed by Mame Alexis MD02/09/2022 20:51 at 2051 PATIENT NAME: SHERRI ARCE :51:00G.[id number] for patient [id number]:52:31 [facility] 2022-07-12 13:32:00 [id number]:32:00 [facility] ([facility])Hospitalist Progress NoteREPORT#:[id number] REPORT STATUS: SignedDATE:07/12/22 TIME: 1331 PATIENT: SHERRI ARCE UNIT #: [id number]#: [id number] [address] [birth year] AGE: 81 SEX: M ATTEND: Sarbjit Mcarthur [facility] AUTHOR: Sarbjit Mcarthur MD * ALL edits or amendments must be made on the electronic/computer document * SubjectiveChief complaint:Status post CABG x5 on 07/09, Had HD this am.HPI:81 y/o man with PMHx of HTN, Dyslipidemia that [facility] with chest pain and found to have a NSTEMI and also acute renal failure. Underwent cardiac cath yesterday and found to have severe CAD including left main disease. Transfer here for CABG evaluation. He also underwent HD Thursday and Thursday of this week. HD catheter was place at [facility]. Currently not having any chest pain. Had chest pain with SOB when he presentted to the previous hospital. Objective GeneralVS/I O:Vital Signs: Date Time Temp Pulse Resp B/P [...] 2200 72 24 111/59 78 93 02/03 0 145/57 77 02/03 2130 73 26 112/58 [...] I O ending at 0700: 07/12 0700 02/03 1900 Intake Total 574.00 1350.00 Output Total 1420 410 Balance -846.00 940.00 Intake, IV 334.00 350.00 Intake, Oral 240 1000 Number 1 Bowel Movements Output, Chest 20 350 Tube Drainage Output, Urine 1400 60 Patient 94.1 kg Weight Weight Standing scale Measurement Method PATIENT WEIGHT: Weight (lb): 207Weight (oz): 7.28Weight (kg): 94.100 Physical ExamGeneral appearance: sleeping comfortablyHead/Eyes: atraumatic, EOMI, normal conjunctiva/sclera, normocephalic, PERRLAENT: moist mucosal membranesNeck: full range of motion, no bruit/NL carotids, no JVDCardiovascular: normal heart sounds, regular rate rhythmRespiratory: aerating well, clear to auscultation, symmetric expansion, no distressAbdomen: non-tender, normal bowel sounds, soft, no distention, no guarding, no reboundExtremities: moves all, no cyanosis, no edemaMusculoskeletal: normal inspectionNeuro/GIFT OFFICER: alert, oriented X 3, normal speech, no motor deficits, no sensory deficitsSkin: intact, normal color, no rashPsychiatry: normal affect ResultsFindings/Data:Laboratory Tests 07/12 07/11 0412 1551 Blood Gas [...] 07/12 07/12 07/11 07/11 1150 0412 0407 2220 2028Chemistry Sodium (134 - 147 mEq/L) 137 132 [...] (70 - 80) 31.4 L 13.3 L 15.0 L Glucose (70 - 110 mg/dL) 104 118 H 100 POC Glucose (70 - 110 MG/DL) 122 H POC Glucose (mg/dL) (70 - 110 MG/DL) 130 H Calcium (8.0 - 10.5 mg/dL) 8.2 8.6 8.6 Ionized Calcium Tenzin (1.09 - 1.30 1.12 1.09MMOL/L) Magnesium (1.80 - 2.40 mg/dL) 2.03 2.69 [...] - 2.40 mg/dL) 2.72 H Laboratory Tests 02/04 02/04 02/03 1150 0407 2220 Hematology WBC (4.5 - [...] - 32.0 %) 3.6 L 4.8 L Starke % (Auto) (4.8 - 9.0 %) 5.3 6.5 Eos % (Auto) (0.3 - 3.7 %) 4.4 H 4.1 H Baso % (Auto) (0.0 - 2.0 %) 0.4 0.5 Neut # (Auto) (2.0 - 7.6 x10 3/uL) 13.83 H 14.13 H Lymph # (Auto) (1.0 - 3.8 x10 3/uL) 0.59 L 0.81 L Starke # (Auto) (0.1 - 0.8 x10 3/uL) 0.87 H 1.10 H Eos # (Auto) (0.0 - 0.2 x10 3/uL) 0.72 H 0.70 H Baso # (Auto) (0.0 - 0.2 x10 3/uL) 0.07 0.09 Abs Immat Gran (auto) (0.00 - 0.03 x10 3/uL) 0.21 H 0.15 H Add Manual Diff NO NO Immature Gran % (0.0 - 2.0 %) 1.3 0.9 Nucleated RBC % (0 - 0 %) 0.0 0.0 Nucleated RBCs # (Man) (0.0 - 0.1 x10 3/uL) 0.00 0.00 Radiology data:Recent Impressions:RADIOLOGY - XR CHEST 1 V 07/12 0707 Report Impression - Status: SIGNED Entered: 07/12/2022 0925 IMPRESSION: 1. Small bilateral pleural effusions. 2. Moderate to severe enlarged cardiac silhouette. 3. Atvt-jn-zebdsbdi pulmonary edema versus infiltrates. Improvement. Impression By: [email or web address] - Manuel Vega M.D. Diagnosis, Assessment PlanConsultants: cardiology, cardiovascular surgery, nephrology Free Text DxA P NotesFree text DxA P notes:Assessment and plans:CAD (coronary artery disease) patient presented with NSTEMI and found to hve severe CAD. Cardiac cath shows: Left Main - Distal 70% LAD - Proximal 80% with another 60% and 70% lessions Cir - Proximal 80%,mid 80-90%, Distal 70% and OM 60% RCA - large dominant with proximal 40%, Mid 60%. Cardiology and CV surgeon consulted echo: ef 30-34%, mod hypokinesis of entire myocardium, grade 1 diastolic dysfunction Carotid Dopplers negative PFTs PT/OT s/p CABG X5 on 07/08 Patient on ASA, plavix, BB and Statin on amiodarone Beta-tomas as tolerated for low BP,- on EPI and vasopressine drip Acute systolic heart failure Echocardiac with estimated LVEF of 30 to 34% with grade 1 diastolic dysfunction-s/p Lasix 20 mg twice daily 07/05 -on metoprolol 12.5 mg bid on hold now, BP low-no ACEI/ spironolactione for CLAUDETTE-Strict I's and O's, daily weights-Start GDMT prior to discharge CLAUDETTE (acute kidney injury) No prior Hx of renal disease. hx of BPH and treated with Fosamax w/o improvement nd continue to have difficulty urinating. On admission was found to be on acute renal filaure and had received HD twice prior to arrival here (thursday and thursday). Creatinine this am was 7.4, BUN 68 * Probably due to obstructive uropathy* waters already in place* Nephrology consuled for HD On daily hemodialysis as per nephrology Anemia:-Hemoglobin dropped to 6.5 s/p CABG 2 PRBC BT ordered 07/09 Monitor H H Leukocytosis:-Afebrile Monitor WBC count HTN (hypertension) patient on metoprolol 12.5 mg BID, will adjust as needed On labetalol/hydralazine as needed Dyslipidemia on Lipitor 40mg po daliy. BPH (benign prostatic hyperplasia) Started on Flomax at the previous hospital, will continue with it. Waters catheter in place, continue Waters catheter as per nephrology 07/05 Goiter Hx of Goiter and surgical resection. TSH 3.33, within normal limits. Patient is not on Thyroid medication. anemia of chronic kidney disease Hemoglobin 8.3, monitor Hypokalemia resolved UTI continue Rocephin for empiric treatment pending results of urine culture No growth for 48 hours DVT prophylaxis: Heparin 5000 units every 8 hoursDiet: Cardiac dietCODE STATUS: Full code Disposition: Status post CABG x5 on 07/09, hemodialysis as per nephrology. Worked with PT in his room, on 2 L oxygen via nasal cannula. PT/OT on board. Rehab consulted. Continue CVICU care. Quality: Gen Med Crit Care VTE ProphylaxisVTE prophylaxis initiated: yes Current MedicationsCurrent medication review:I attest that the foregoing medication list in the medical record is true, accurate, and complete to the best of my knowledge. Advanced Care Plan 65 or OlderDiscussed with: patientDiscussion included: living will (none), power of school commissioner (none), code status (full code) at 1337 RPT #:[id number] OF REPORTPRProgress [id number]:32:[id number] Available for patient [id number]:37:24 [facility] 2022-07-12 11:14:00 [id number]:14:00 [facility] ([facility])Nephrology Progress NoteREPORT#:[id number] REPORT STATUS: SignedDATE:07/12/22 TIME: 1114 PATIENT: SHERRI ARCE UNIT #: [id number]#: [id number] [address] [birth year] AGE: 81 SEX: M ATTEND: Sarbjit Mcrathur [facility] AUTHOR: Evelina Plaza MD * ALL edits or amendments must be made on the electronic/computer document * SubjectiveChief complaint:has no complaints. Objective GeneralVS/I O:Vital Signs: Date Time Temp Pulse Resp B/P B/P Pulse O2 O2 Flow FiO2 Mean Ox Delivery Rate 02/04 1054 [...] scale Measurement Method PATIENT WEIGHT: Weight (lb): 207Weight (oz): 7.28Weight (kg): 94.100 MedicationsActive Meds + DC'd Last 24 HrsMidodrine (PROAMATINE) 5 MG 0900,1300,1700 PO Sodium Bicarbonate (SODIUM BICARBONATE) 650 MG BID PO Dextrose/Water (DEXTROSE 50% W SYRINGE) 50 ML ONCE ONE IV (DC) Insulin Human Regular (HUMAN INSULIN REG) 10 UNITS STAT STA IV (DC) Ipratropium [place] (ATROVENT) 500 MCG RTQ2H PRN PRN INH Albumin Human (ALBUMINAR 5% 12.5GM/250ML) 250 ML ONCE ONE IV (DC) Albumin Human (ALBUMINAR 5% 12.5GM/250ML) 250 ML ONCE ONE IV (DC) Furosemide (LASIX 40 mg/4 mL INJECTION) 80 MG ONCE ONE IV (DC) Midodrine (PROAMATINE) 2.5 MG 0900,1300,1700 PO (DC) Furosemide (LASIX 40 mg/4 mL INJECTION) 60 MG ONCE ONE IV (DC) Lactulose (LACTULOSE) 20 GM DAILY PRN PRN PO Cyanocobalamin (Vitamin B-12 500 mcg tab) 500 MCG DAILY PO Ferrous Sulfate (FERROUS SULFATE) 325 MG DAILY PO Dopamine HCl/Dextrose (DOPamine 400MG/D5W 250ML) 250 ML ASDIR IV Bisacodyl (DULCOLAX) 10 MG ONCE PRN RECTAL Insulin Human Lispro (HUMALOG) 0 AC HS SUBQ (DC) Atorvastatin Calcium (LIPITOR) 40 MG 2100 PO Clopidogrel Bisulfate (Plavix) 75 MG DAILY PO Polyethylene Glycol (MIRALAX) 17 GM DAILY PO Miscellaneous Information (PHARMACY TO DOSE/EVALUATE) 1 EACH ASDIR MISC Calcium Chloride (CALCIUM CHLORIDE) 1 GM ASDIR PRN IV Sodium Chloride (SODIUM CHLORIDE 0.9%) 100 MLCalcium Chloride (CALCIUM CHLORIDE) 2 GM ASDIR PRN IV Sodium Chloride (SODIUM CHLORIDE 0.9%) 100 MLMagnesium Sulfate (MAGNESIUM SULFATE 4GM/SWFI 100ML) 100 ML ASDIR PRN IV Magnesium Sulfate (MAGNESIUM SULFATE 2GM/SWFI 50ML) 50 ML ASDIR PRN IV Miscellaneous (PRISMASATE BGK 4/2.5 SOLUTION) 5,000 ML ASDIR DIALYSIS Potassium Chloride (KCL 10MEQ/SWFI 50ML) 50 ML ASDIR PRN IV Sodium Chloride (SODIUM CHLORIDE 0.9%) 2,000 ML ASDIR PRN IV Sodium Phosphate (SODIUM PHOSPHATE) 25 MMOL ASDIR PRN IV Sodium Chloride (SODIUM CHLORIDE 0.9%) 250 MLSodium Phosphate (SODIUM PHOSPHATE) 20 MMOL ASDIR PRN IV Sodium Chloride (SODIUM CHLORIDE 0.9%) 250 MLSodium Phosphate (SODIUM PHOSPHATE) 15 MMOL ASDIR PRN IV Sodium Chloride (SODIUM CHLORIDE 0.9%) 250 MLPantoprazole (PROTONIX) 40 MG DAILY@0600 PO Aspirin (ASPIRIN) [...] (Senna Lax 8.6 MG TABLET) 17.2 MG BEDTIME PO Ipratropium [place] (ATROVENT) 500 MCG RTQ4H INH Acetaminophen (TYLENOL) 650 MG Q4H PRN PRN PO Acetaminophen (TYLENOL) 650 MG Q4H PRN PRN RECTAL Calcium Chloride (CALCIUM CHLORIDE) 1 GM ASDIR PRN IV Dextrose/Water (DEXTROSE 10% IN WATER) 125 ML ASDIR PRN IV (CKD) Dextrose/Water (DEXTROSE 10% IN WATER) 250 ML ASDIR PRN IV (CKD) Epinephrine (ADRENALIN CHLORIDE) 4 MG ASDIR IV Dextrose/Water (DEXTROSE 5% WATER) 246 MLGlucagon (GLUCAGON) 1 MG ASDIR PRN IM Magnesium Sulfate (MAGNESIUM SULFATE 4GM/SWFI 100ML) 100 ML ASDIR PRN IV Magnesium Sulfate (MAGNESIUM SULFATE 2GM/SWFI 50ML) 50 ML ASDIR PRN IV Magnesium Sulfate/Dextrose (MAGNESIUM SULFATE 1GM/D5W 100ML) 100 ML ASDIR PRN IV Nitroglycerin/Dextrose (NITROGLYCERIN 50,000MCG/D5W 250ML) 250 ML ASDIR IV Norepinephrine Bitartrate (NOREPINEPHRINE 8 MG/NS 250 ML) 250 ML TITRATE IV Ondansetron HCl (ZOFRAN) 4 MG Q6H PRN PRN IV Oxycodone HCl (ROXICODONE) 5 MG Q4H PRN PRN PO Oxycodone HCl (ROXICODONE) 10 MG Q4H PRN PRN PO Potassium Chloride (KCL 20MEQ/SWFI 100ML) 100 ML ASDIR PRN IV Sodium Bicarbonate (SODIUM BICARBONATE) 50 MEQ ASDIR PRN IV Sodium Chloride (SODIUM CHLORIDE 0.9%) 1,000 ML .Q20H IV (DC) Sodium Chloride (SODIUM CHLORIDE 0.9%) 250 ML Q24H IV Albumin Human (ALBUMINAR-25%) 12.5 GM ASDIR PRN IV Heparin Sodium (Porcine) (HEPARIN SODIUM) 3,000 UNIT ASDIR PRN DIALYSIS Lidocaine HCl (LIDOCAINE HCL/PF) 0.5 ML ASDIR PRN I-DERMAL (CKD) Mannitol (Mannitol 20%) 12.5 GM ASDIR PRN IV Sodium Chloride (SODIUM CHLORIDE 0.9%) 2,000 ML ASDIR PRN IV Tamsulosin HCl (Flomax 0.4 mg) 0.4 MG BEDTIME PO Physical ExamGeneral appearance: alert, awake, orientedHead/eyes: atraumatic, normocephalicENT: moist mucous membranes, normal noseNeck: non-tender, no JVDExtremities: no edema, no swellingNeuro/GIFT OFFICER: alert, oriented X 3, normal speechSkin: dry, intact ResultsFindings/Data:Laboratory Tests 07/12 07/11 0412 1551 Blood Gas [...] (Auto) (14.0 - 32.0 %) 4.8 L Starke % (Auto) (4.8 - 9.0 %) 6.5 Eos % (Auto) (0.3 - 3.7 %) 4.1 H Baso % (Auto) (0.0 - 2.0 %) 0.5 Neut # (Auto) (2.0 - 7.6 x10 3/uL) 14.13 H Lymph # (Auto) (1.0 - 3.8 x10 3/uL) 0.81 L Starke # (Auto) (0.1 - 0.8 x10 3/uL) 1.10 H Eos # (Auto) (0.0 - 0.2 x10 3/uL) 0.70 H Baso # (Auto) (0.0 - 0.2 x10 3/uL) 0.09 Abs Immat Gran (auto) (0.00 - 0.03 x10 3/uL) 0.15 H Add Manual Diff NO Immature Gran % (0.0 - 2.0 %) 0.9 Nucleated RBC % (0 - 0 %) 0.0 Nucleated RBCs # (Man) (0.0 - 0.1 x10 3/uL) 0.00 Radiology data:Recent Impressions:RADIOLOGY - XR CHEST 1 V 07/12 0707 Report Impression - Status: SIGNED Entered: 07/12/2022 5937 IMPRESSION: 1. Small bilateral pleural effusions. 2. Moderate to severe enlarged cardiac silhouette. 3. Jdgz-vl-wauyrzrc pulmonary edema versus infiltrates. Improvement. Impression By: [email or web address] - Manuel Vega M.D. Diagnosis, Assessment PlanFree Text A P:Assessment:1-CLAUDETTE likely from urinary retention. oliguric CLAUDETTE now post op, from shock!2- non-STEMI: multivessel disease w main left. S/P CABG X5 on - BPH. Waters catheter is in place.4-severe bilateral hydronephrosis5- shock : Cardiogenic6-hyperlipidemia Plan:- unknown Scr baseline. - He underwent LHC on 07/03. Started on HD without UF on 07/04 for clearance- Ultrasound showed severe bilateral hydronephrosis. Continue Waters catheter. Urology consulted. - s/p CABG X5 on 07/08- hemodynamic support, titrate vasopressors for MAP>65. - on dopamine to improve renal perfusion. increased UOP volume after lasix 60 + 80 + albumin + dopamine. - HD 07/12. - BMP daily, if stable, then propably remove HD cath by Thursday. Discussed with patient and cardiothoracic surgery team Consultants: cardiology, cardiovascular surgery, nephrology at 1116 RPT #:[id number] OF REPORTPRProgress [id number]:14:[id number] Available for patient [id number]:17:18 [facility] 2022-07-12 10:15:00 [id number]:15:00 [facility] ProgREPORT#:[id number] REPORT STATUS: SignedDATE:07/12/22 TIME: 1015 PATIENT: SHERRI ARCE UNIT #: [id number]#: [id number] [address] [birth year] AGE: 81 SEX: M ATTEND: Sarbjit Mcarthur [facility] AUTHOR: Gianna oHover * ALL edits or amendments must be made on the electronic/computer document * GeneralPost-op: day 4Status post:07/08/22 CABG x 5 (MISTRY-LAD, SVG-Ladonna, SVG-OM1< SVG-OM3, SVG-PDA) ALABud TATUM (RGSV) SubjectiveChief complaint:Chest PainPre CABG evals/p CABGno complaints Review of SystemsConstitutional:Denies: chills, fever, malaise. Allergy/Immun:Denies: allergic reaction. Respiratory:Denies: SOB. Cardiovascular:Denies: chest pain, palpitations. GI:Denies: abdominal pain, nausea, vomiting. :Denies: dysuria, hematuria. Heme:Denies: bleeding. Neuro:Denies: dizziness, headache, vision change. All systems rev neg: except as marked Objective GeneralVS/I OLast Documented: Result Date Time Pulse Ox 97 07/12 856 B/P 136/58 07/12 856 O2 Delivery Nasal cannula 07/12 856 O2 Flow Rate 7 07/12 856 Temp 97.5 07/12 856 Pulse 71 07/12 08 Resp 27 07/12 856 B/P Mean 74 07/12 06 FiO2 50 07/08 1919 24 hour I O ending at 0700: 07/12 0700 07/11 1900 Intake Total 574.00 1350.00 Output Total 1420 410 Balance -846.00 940.00 Intake, IV 334.00 350.00 Intake, Oral 240 1000 Number 1 Bowel Movements Output, Chest 20 350 Tube Drainage Output, Urine 1400 60 Patient 94.1 kg Weight Weight Standing scale Measurement Method PATIENT WEIGHT: Weight (lb): 207Weight (oz): 7.28Weight (kg): 94.100 Physical ExamGeneral appearance: alert, awake, orientedWound/incision: Location:sternal Site condition: dressing clean dry, dressing intactHEENT: anicteric, mucosal membranes moistNeck: supple/no meningismusCardiovascular: normal heart sounds, regular rate rhythmRespiratory: aerating well, symmetric expansion, no distressAbdomen: soft, non-tender, no distentionGenitourinary: waters, oN hd Extremities: moves allNeuro/GIFT OFFICER: alert, oriented X 3, normal speech, no motor deficitsPsychiatry: normal affect, normal mood Quality: Trauma Gen Surg Advanced Care Plan 65 or OlderDiscussed with: patientDiscussion included: living will (none), power of school commissioner (none), code status (full code) VTE Prophylaxis - GeneralVTE prophylaxis initiated: yes Diagnosis, Assessment PlanHospital course to date:This is a 81-year-old gentleman who presented to an outside hospital with complaints of chest pains while walking at his home on Thursday. He denies any previous history of coronary artery disease or other [place]. He was seen and evaluated at [facility]. He was found to have a urinary tract infection with urinary retention and acute kidney. He was started on dialysis via a left femoral temporary catheter. He underwent dialysis on Thursday, Thursday. Renal has been consultedDuring his work-up at outside hospital he underwent Left heart catheterization showing severe Left Main 70%. LAD: Proximal diffuse 80% stenosis and then diffuse 60% in the midsegment and on the distal segment, there is focal 70% stenosis. Diagonal branches with luminal irregularities. Left circumflex, codominant circulation with proximal 80%, mid 80 to 90% and then in the OM, there is proximal 60%, distal left circumflex has a 70% stenosis. RCA large and dominant with proximal 40% stenosis, mid 60% stenosis and then diffuse 50% stenosis all the way distally and the PLV and the PDA with luminal irregularities. CV surgery consulted for evaluation for coronary bypass graft. CAROTIDS- No carotid stenosis CT chest complete IMPRESSION: Small bilateral pleural effusions with bibasilar atelectasis. Echo:1. Left ventricle: The cavity size is at the upper limits of normal. Wall thickness is mildly increased. Systolic function is severely reduced. The estimated ejection fraction is 30-34%. Moderate hypokinesis of the entire myocardium. Doppler parameters are consistent with abnormal left ventricular relaxation (grade 1 diastolic dysfunction).2. Pericardium, extracardiac: A small pericardial effusion is identified along the left ventricular free wall, along the right ventricular free wall, and along the right atrial free wall. Assessment/Plan1) CAD Mutlivessel Will obtain echo,carotids. 2) CLAUDETTE Started dialysis on Creatine 7.3 Renal consulted. 3) BPH- Urinary retention. Waters in place Workup for CABG underway. Will get functional assessment with PT. PFT pending Carotid dopplers- No disease Echo PendingDialyiss per Renal. Baseline Cr unknown. 07/04 07/04 Doing well today, alert, up in the chair. Denies chest painEchocardiogram showed LVEF 30 to 34%, mild MR, trivial TRCT chest images reviewedEncourage I-S and mobilizationCreatinine 5.5 from 7.3, good urine output. Renal US showed bilateral severe hydronephrosis. Plan for HD today and tomorrow Will tentatively schedule patient for surgery on Thursday.Patient seen and plan reviewed with Dr Schwarz 07/05 Remains in a stable condition, denies chest pain BUN 53, creatinine 5.4. Plan for hemodialysis today and tomorrow for clearanceHe is also on Lasix 20 mg IV twice daily, urine output 1.1 L overnightWe will calculate risk of surgery with STS scoreEncourage I-S and mobilizationWill tentatively schedule patient for surgery on Thursday.Pt seen and plan reviewed with Dr Schwarz 07/06 BUN 36, creatinine 4.4. Plan for hemodialysis todayAwaiting CABG tomorrowSurgery, risks involved, STS score, benefits, complications and alternatives were explained to the patient. He acknowledged understanding and is willing to proceedN.p.o. after midnightPatient seen and plan reviewed with Dr. Schwarz 07/09/22OUMOU 1CABG x 5 (MISTRY-LAD, SVG-Ladonna, SVG-OM1< SVG-OM3, SVG-PDA), ALAA, JACQUIH (RGSV)Patient hemodynamically unstable, on epi at 4, and vaso .04, decreased uop overnight- 150ccStarted patient on CRRT 2k/3.5Wean epi as tolerated, Cardiac incex 2.8-3labs and chest x-ray reviewed, electrolytes stable, hgb 6.5- transfuse 2 units PRBCOn 4l nasal cannula- encourage incentive spirometer and deep breathingKeep both chest tubes and monitor outputsGlycemic control on insulin dripCardiac dietBowel regimen protocolPain managementSCDs for DVT and PPI for GI prophylaxisPT/OTMonitor patient closely in CVICUPlan of care discussed with Dr. Schwarz 07/10/22OUMOU 2Patient alert, awake, and oriented, no distres notedlabs and CXR reviewed stableBreathing comfortably on 3l nasal cannula- wean as tolerated to melissa O2 sats > 92%Encourage I-S use and deep breathingOn CRRT- able to remove 2.9L overnight- nephrology followingCardiac index 3.1- wean off epi dripKeep chest tubes for now and monitor outputsTransition to sliding scale insulin- cardiac dietTry to get patient out of bed to chair today- ambulate with PT/OTSCDs for DVT prophylaxisKeep patient in CVICU for close monitoring 07/11/22POD 3Patient in stable condition, overnight events noted- decreased urine output 35 ml last night-started on dopamine gtt for renal perfusionCardiac index 3.5- epi currently at 2- will discontinue today, vasopressin at 0.02, added low dose midodrine 2.5 mg TID, repeat echocardiogram.Renal Following- trial LasixPatient has Left femoral temp dialysis cath, Will need tunneled dialysis IJ cathplaced if need dialysis. On 5l nasal cannula- wean off as tolerated, encourage incentive spirometer and deep breathingKeep left pleural chest tube and monitor output- > 200 cc Tolerating diet, bowel regimen protocolPT/OT- patient out of bed to chair today- encourage ambulationDVT prophylaxis with SCDsMonitor patient closely in CVICUPlan discussed with multidisciplinary teamPlan discussed with Dr Schwarz/ Dr Rodríguez 07/12/22POD 5,Patient resting comfortable. Patient with hx of urinary retention- After standing today- voided 1.4 L. Needs Urology consult for retention K 5.4- HD in progress. Dr Plaza following. CT output 20- DC today. Pacers remain in place. Patient has Left femoral temp dialysis cath, Re-evaluate on Thursday if fpc dialysis needed. Card: Remains in sinus rhythm. Respir: on 7 L NC O2 95%Dispo: Rehab consultedPatient seen and exmained by Dr oRdríguez. Plan discussed with Team Consultants: cardiology, cardiovascular surgery, nephrology at 1023 at 1950 RPT #:[id number] OF REPORTPRProgress [id number] Available for patient [id number] HCACL 2022-07-12 09:56:00 [id number] [facility] ([facility])Cardiology Progress NoteREPORT#:[id number] REPORT STATUS: SignedDATE:07/12/22 TIME: 0956 PATIENT: SHERRI ARCE UNIT #: [id number]#: [id number] [address] AGE: 81 SEX: M ATTEND: Sarbjit Mcarthur [facility] AUTHOR: Carolyn Penny [employer]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 Nursing reports:No: complaints. Comments:Patient is in bed, supine, on 3 L nasal cannula.Is on dialysis-attempt to remove 1.5 L - no u/o.Telemetry shows normal sinus rhythm.Patient is on dopamine 2 mcg/kg/min and vasopressin 0.03 units/min-for hypotension. Objective GeneralVS/I O:24 hour I O ending at 0700: 07/11 1900 07/12 0700 Intake Total 1350.00 574.00 Output Total 410 1420 Balance 940.00 -846.00 Intake, IV 350.00 334.00 Intake, Oral 1000 240 Number 1 Bowel Movements Output, Chest 350 20 Tube Drainage Output, Urine 60 1400 Patient 94.1 kg Weight Weight Standing scale Measurement Method Vital Signs: Date Time Temp Pulse Resp B/P B/P Pulse O2 O2 Flow FiO2 Mean Ox Delivery Rate 07/12 0857 97.5 71 27 136/58 97 Nasal 7 cannula / 0627 72 28 137/53 74 100 02/04 [...] 105/56 74 95 PATIENT WEIGHT: Weight (lb): 207Weight (oz): 7.28Weight (kg): 94.100 Medications:Active Meds + DC'd Last 24 HrsMidodrine (PROAMATINE) 5 MG 0900,1300,1700 PO Sodium Bicarbonate (SODIUM BICARBONATE) 650 MG BID PO Dextrose/Water (DEXTROSE 50% W SYRINGE) 50 ML ONCE ONE IV (DC) Insulin Human Regular (HUMAN INSULIN REG) 10 UNITS STAT STA IV (DC) Ipratropium [place] (ATROVENT) 500 MCG RTQ2H PRN PRN INH Albumin Human (ALBUMINAR 5% 12.5GM/250ML) 250 ML ONCE ONE IV (DC) Albumin Human (ALBUMINAR 5% 12.5GM/250ML) 250 ML ONCE ONE IV (DC) Furosemide (LASIX 40 mg/4 mL INJECTION) 80 MG ONCE ONE IV (DC) Midodrine (PROAMATINE) 2.5 MG 0900,1300,1700 PO (DC) Furosemide (LASIX 40 mg/4 mL INJECTION) 60 MG ONCE ONE IV (DC) Lactulose (LACTULOSE) 20 GM DAILY PRN PRN PO Cyanocobalamin (Vitamin B-12 500 mcg tab) 500 MCG DAILY PO Ferrous Sulfate (FERROUS SULFATE) 325 MG DAILY PO Dopamine HCl/Dextrose (DOPamine 400MG/D5W 250ML) 250 ML ASDIR IV Bisacodyl (DULCOLAX) 10 MG ONCE PRN RECTAL Insulin Human Lispro (HUMALOG) 0 AC HS SUBQ (DC) Atorvastatin Calcium (LIPITOR) 40 MG 2100 PO Clopidogrel Bisulfate (Plavix) 75 MG DAILY PO Polyethylene Glycol (MIRALAX) 17 GM DAILY PO Miscellaneous Information (PHARMACY TO DOSE/EVALUATE) 1 EACH ASDIR MISC Calcium Chloride (CALCIUM CHLORIDE) 1 GM ASDIR PRN IV Sodium Chloride (SODIUM CHLORIDE 0.9%) 100 MLCalcium Chloride (CALCIUM CHLORIDE) 2 GM ASDIR PRN IV Sodium Chloride (SODIUM CHLORIDE 0.9%) 100 MLMagnesium Sulfate (MAGNESIUM SULFATE 4GM/SWFI 100ML) 100 ML ASDIR PRN IV Magnesium Sulfate (MAGNESIUM SULFATE 2GM/SWFI 50ML) 50 ML ASDIR PRN IV Miscellaneous (PRISMASATE BGK 4/2.5 SOLUTION) 5,000 ML ASDIR DIALYSIS Potassium Chloride (KCL 10MEQ/SWFI 50ML) 50 ML ASDIR PRN IV Sodium Chloride (SODIUM CHLORIDE 0.9%) 2,000 ML ASDIR PRN IV Sodium Phosphate (SODIUM PHOSPHATE) 25 MMOL ASDIR PRN IV Sodium Chloride (SODIUM CHLORIDE 0.9%) 250 MLSodium Phosphate (SODIUM PHOSPHATE) 20 MMOL ASDIR PRN IV Sodium Chloride (SODIUM CHLORIDE 0.9%) 250 MLSodium Phosphate (SODIUM PHOSPHATE) 15 MMOL ASDIR PRN IV Sodium Chloride (SODIUM CHLORIDE 0.9%) 250 MLPantoprazole (PROTONIX) 40 MG DAILY@0600 PO Aspirin (ASPIRIN) [...] (Senna Lax 8.6 MG TABLET) 17.2 MG BEDTIME PO Ipratropium [place] (ATROVENT) 500 MCG RTQ4H INH Acetaminophen (TYLENOL) 650 MG Q4H PRN PRN PO Acetaminophen (TYLENOL) 650 MG Q4H PRN PRN RECTAL Calcium Chloride (CALCIUM CHLORIDE) 1 GM ASDIR PRN IV Dextrose/Water (DEXTROSE 10% IN WATER) 125 ML ASDIR PRN IV (CKD) Dextrose/Water (DEXTROSE 10% IN WATER) 250 ML ASDIR PRN IV (CKD) Epinephrine (ADRENALIN CHLORIDE) 4 MG ASDIR IV Dextrose/Water (DEXTROSE 5% WATER) 246 MLGlucagon (GLUCAGON) 1 MG ASDIR PRN IM Magnesium Sulfate (MAGNESIUM SULFATE 4GM/SWFI 100ML) 100 ML ASDIR PRN IV Magnesium Sulfate (MAGNESIUM SULFATE 2GM/SWFI 50ML) 50 ML ASDIR PRN IV Magnesium Sulfate/Dextrose (MAGNESIUM SULFATE 1GM/D5W 100ML) 100 ML ASDIR PRN IV Nitroglycerin/Dextrose (NITROGLYCERIN 50,000MCG/D5W 250ML) 250 ML ASDIR IV Norepinephrine Bitartrate (NOREPINEPHRINE 8 MG/NS 250 ML) 250 ML TITRATE IV Ondansetron HCl (ZOFRAN) 4 MG Q6H PRN PRN IV Oxycodone HCl (ROXICODONE) 5 MG Q4H PRN PRN PO Oxycodone HCl (ROXICODONE) 10 MG Q4H PRN PRN PO Potassium Chloride (KCL 20MEQ/SWFI 100ML) 100 ML ASDIR PRN IV Sodium Bicarbonate (SODIUM BICARBONATE) 50 MEQ ASDIR PRN IV Sodium Chloride (SODIUM CHLORIDE 0.9%) 1,000 ML .Q20H IV (DC) Sodium Chloride (SODIUM CHLORIDE 0.9%) 250 ML Q24H IV Albumin Human (ALBUMINAR-25%) 12.5 GM ASDIR PRN IV Heparin Sodium (Porcine) (HEPARIN SODIUM) 3,000 UNIT ASDIR PRN DIALYSIS Lidocaine HCl (LIDOCAINE HCL/PF) 0.5 ML ASDIR PRN I-DERMAL (CKD) Mannitol (Mannitol 20%) 12.5 GM ASDIR PRN IV Sodium Chloride (SODIUM CHLORIDE 0.9%) 2,000 ML ASDIR PRN IV Tamsulosin HCl (Flomax 0.4 mg) 0.4 MG BEDTIME PO Status post:07/08/22 CABG x 5 (MISTRY-LAD, SVG-Ladonna, SVG-OM1< SVG-OM3, SVG-PDA)ALAA Physical ExamGeneral appearance: frail, alert, awake, oriented, no acute distress, pleasant, mental status normal, no respiratory distressHead/Eyes: atraumaticENT: moist mucosal membranesNeck: no JVDCardiovascular: CV assessment: regular rate and rhythm, no murmurRespiratory: decreased breath sounds, no distressAbdomen: soft, non-tender, normal bowel sounds, no distention, no guardingUpper extremity: UE assessment: normal temperature, no edemaLower extremity: LE assessment: edema (RLE trace), normal temperature, no edemaMusculoskeletal: normal inspectionNeuro/GIFT OFFICER: alert, oriented X 3, normal speechSkin: dryPsychiatry: normal affect ResultsFindings/Data:Laboratory Tests 07/12 0412 Blood Gas Puncture Site [...] 1.7 mmol/l) 0.6 L O2 Delivery Device [facility] Laboratory Tests 07/117 0412 Chemistry Sodium (134 - 147 mEq/L) [...] - 32.0 %) 4.8 L 3.6 L Starke % (Auto) (4.8 - 9.0 %) 6.5 5.3 Eos % (Auto) (0.3 - 3.7 %) 4.1 H 4.4 H Baso % (Auto) (0.0 - 2.0 %) 0.5 0.4 Neut # (Auto) (2.0 - 7.6 x10 3/uL) 14.13 H 13.83 H Lymph # (Auto) (1.0 - 3.8 x10 3/uL) 0.81 L 0.59 L Starke # (Auto) (0.1 - 0.8 x10 3/uL) 1.10 H 0.87 H Eos # (Auto) (0.0 - 0.2 x10 3/uL) 0.70 H 0.72 H Baso # (Auto) (0.0 - 0.2 x10 3/uL) 0.09 0.07 Abs Immat Gran (auto) (0.00 - 0.03 x10 3/uL) 0.15 H 0.21 H Add Manual Diff NO NO Immature Gran % (0.0 - 2.0 %) 0.9 1.3 Nucleated RBC % (0 - 0 %) 0.0 0.0 Nucleated RBCs # (Man) (0.0 - 0.1 x10 3/uL) 0.00 0.00 Laboratory Tests 07/12 07/12 0407 1150 Chemistry Magnesium (1.80 - 2.40 mg/dL) 2.69 H 2.03 Radiology data:Recent Impressions:RADIOLOGY - XR CHEST 1 V 07/12 0707 Report Impression - Status: SIGNED Entered: 07/12/2022 0737 IMPRESSION: 1. Small bilateral pleural effusions. 2. Moderate to severe enlarged cardiac silhouette. 3. Mvrg-hx-ovognewl pulmonary edema versus infiltrates. Improvement. Impression By: [email or web address] - Manuel Vega M.D. Results: labs reviewed, vital signs reviewed, vital signs stable, rhythm personally rev'd, current med profile rev'dTelemetry Interpretation:Normal sinus rhythmEcho results:EF 30 to 34%. Diagnosis, Assessment PlanProblem List/A P: 1. HTN (hypertension) 2. CLAUDETTE (acute kidney injury) 3. CAD (coronary artery disease) 4. Dyslipidemia 5. BPH (benign prostatic hyperplasia) Consultants: cardiology, cardiovascular surgery, nephrologyPlan discussed with: patient, nurse Free Text DxA P NotesFree Text DxA P Notes:Mr. Arce is a pleasant 81 y/o M w/ PMHx: HTN, HLD presented to [facility] on 06/28/22 for chest pain and sob. He was diagnosed NSTEMI w/ [...] and diffuse 50-60% dRCA. He transferred to [facility] for CABG. - CAD/NSTEMI s/p CABG CABG x 5 (MISTRY-LAD, SVG-Ladonna, SVG-OM1< SVG-OM3, SVG-PDA)ALAA On statins, BB, ASA, plavix Echo: LVEF 30-34%, CXR 2/2 small left apical pneumothorax, chest tube in place Postop care per CTS - Acute Systolic HF with ischemic CMP LVEF 30-34% strict I/Os, daily weights, fluid restriction, low NA diet diuresis as needed per Nephrology no charly/arb/aldactone due to CLAUDETTE Iniriate GDMT as tolerated, when of pressors persistent hypotension - on vaso and low dose Dopamine repeat echocardiogram - CLAUDETTE. HD Per nephro. likely from obstructive uropathy. s/p waters cath. Renal ultrasound showed severe thickening of the bladder, cholelitiasis. - HTN. hypotension post-op on vasopressin and low dose Dopamine Midodrine 5mg po tid. - HLD. On statins. - Anemia. monitor - Oliguric. Per nephro. Onn HD today. at 1559 at 1700 RPT #:[id number] OF REPORTPRProgress [id number]:[id number] Available for patient [id number] HCACL 2022-07-12 07:09:00 [id number]:00 [facility] ([facility])Critical Care Progress NoteREPORT#:[id number] REPORT STATUS: SignedDATE:07/12/22 TIME: 708 PATIENT: SHERRI ARCE UNIT #: [id number]#: [id number] [address] [birth year] AGE: 81 SEX: M ATTEND: Sarbjit Mcarthur [facility] AUTHOR: Edwardo Flannery MD * ALL edits or amendments must be made on the electronic/computer document * SubjectiveChief complaint:CABGHPI:This is 81 years old male with medical history significant for HTN and dyslipidemia who presented to [facility] Thursday06/28/22 with chest pain and found to have a NSTEMI and also acute renal failure. He underwent cardiac cath and was found to have severe CAD including left main disease with EF of 30 to 35% and ischemic cardiomyopathy. Transfer here for CABG evaluation. CV surgery were consulted and the patient earlier today underwent CABG x 5 (MISTRY-LAD, SVG-Ladonna, SVG-OM1< SVG-OM3, SVG-PDA) and ALAA. His intraoperative course was without significant occurrence. The patient was brought to CVICU intubated and ventilated on milrinone drip, norepinephrine drip, epinephrine drip and vasopressin drip.His initial ABG showed metabolic acidosis and he received 2 A of sodium bicarb and 1 g of calcium.The patient started to wake up later in the evening but he looked weak, so he was reversed with neostigmine and glycopyrrolate. His motor strength improved significantly after that and his spontaneous breathing trial was good on the following ABG showed some metabolic acidosis. The patient will be extubated to a BiPAP as his CO2 was high on the ABG. Comments:Out of bed in the chairOn dopamine at 3 amanda and vasopressin 0.03 unitsFoley catheter unkinked, urine output 1.4 LGetting hemodialysis todayChest tube output 20 ccTolerating p.o., had BM Objective GeneralVS/I OLast Documented: Result Date Time Pulse Ox 100 07/12 626 B/P 137/53 07/12 626 B/P Mean 74 07/12 626 Pulse 72 07/12 626 Resp 28 07/12 626 O2 Delivery Nasal cannula 07/12 341 O2 Flow Rate 6 07/12 341 Temp 98.4 07/11 1999 FiO2 50 07/08 1919 24 hour I O ending at 0700: 07/12 0700 07/11 1900 Intake Total 574.00 1350.00 Output Total 1420 410 Balance -846.00 940.00 Intake, IV 334.00 350.00 Intake, Oral 240 1000 Number 1 Bowel Movements Output, Chest 20 350 Tube Drainage Output, Urine 1400 60 Patient 94.1 kg Weight Weight Standing scale Measurement Method PATIENT WEIGHT: Weight (lb): 207Weight (oz): 7.28Weight (kg): 94.100 Medications:Active Meds + DC'd Last 24 HrsSodium Bicarbonate (SODIUM BICARBONATE) 650 MG BID PO Dextrose/Water (DEXTROSE 50% W SYRINGE) 50 ML ONCE ONE IV (DC) Insulin Human Regular (HUMAN INSULIN REG) 10 UNITS STAT STA IV (DC) Ipratropium [place] (ATROVENT) 500 MCG RTQ2H PRN PRN INH Albumin Human (ALBUMINAR 5% 12.5GM/250ML) 250 ML ONCE ONE IV (DC) Albumin Human (ALBUMINAR 5% 12.5GM/250ML) 250 ML ONCE ONE IV (DC) Furosemide (LASIX 40 mg/4 mL INJECTION) 80 MG ONCE ONE IV (DC) Midodrine (PROAMATINE) 2.5 MG 0900,1300,1700 PO Furosemide (LASIX 40 mg/4 mL INJECTION) 60 MG ONCE ONE IV (DC) Lactulose (LACTULOSE) 20 GM DAILY PRN PRN PO Cyanocobalamin (Vitamin B-12 500 mcg tab) 500 MCG DAILY PO Ferrous Sulfate (FERROUS SULFATE) 325 MG DAILY PO Dopamine HCl/Dextrose (DOPamine 400MG/D5W 250ML) 250 ML ASDIR IV Bisacodyl (DULCOLAX) 10 MG ONCE PRN RECTAL Insulin Human Lispro (HUMALOG) 0 AC HS SUBQ (DC) Atorvastatin Calcium (LIPITOR) 40 MG 2100 PO Clopidogrel Bisulfate (Plavix) 75 MG DAILY PO Polyethylene Glycol (MIRALAX) 17 GM DAILY PO Miscellaneous Information (PHARMACY TO DOSE/EVALUATE) 1 EACH ASDIR MISC Calcium Chloride (CALCIUM CHLORIDE) 1 GM ASDIR PRN IV Sodium Chloride (SODIUM CHLORIDE 0.9%) 100 MLCalcium Chloride (CALCIUM CHLORIDE) 2 GM ASDIR PRN IV Sodium Chloride (SODIUM CHLORIDE 0.9%) 100 MLMagnesium Sulfate (MAGNESIUM SULFATE 4GM/SWFI 100ML) 100 ML ASDIR PRN IV Magnesium Sulfate (MAGNESIUM SULFATE 2GM/SWFI 50ML) 50 ML ASDIR PRN IV Miscellaneous (PRISMASATE BGK 4/2.5 SOLUTION) 5,000 ML ASDIR DIALYSIS Potassium Chloride (KCL 10MEQ/SWFI 50ML) 50 ML ASDIR PRN IV Sodium Chloride (SODIUM CHLORIDE 0.9%) 2,000 ML ASDIR PRN IV Sodium Phosphate (SODIUM PHOSPHATE) 25 MMOL ASDIR PRN IV Sodium Chloride (SODIUM CHLORIDE 0.9%) 250 MLSodium Phosphate (SODIUM PHOSPHATE) 20 MMOL ASDIR PRN IV Sodium Chloride (SODIUM CHLORIDE 0.9%) 250 MLSodium Phosphate (SODIUM PHOSPHATE) 15 MMOL ASDIR PRN IV Sodium Chloride (SODIUM CHLORIDE 0.9%) 250 MLPantoprazole (PROTONIX) 40 MG DAILY@0600 PO Aspirin (ASPIRIN) [...] (Senna Lax 8.6 MG TABLET) 17.2 MG BEDTIME PO Ipratropium [place] (ATROVENT) 500 MCG RTQ4H INH Acetaminophen (TYLENOL) 650 MG Q4H PRN PRN PO Acetaminophen (TYLENOL) 650 MG Q4H PRN PRN RECTAL Calcium Chloride (CALCIUM CHLORIDE) 1 GM ASDIR PRN IV Dextrose/Water (DEXTROSE 10% IN WATER) 125 ML ASDIR PRN IV (CKD) Dextrose/Water (DEXTROSE 10% IN WATER) 250 ML ASDIR PRN IV (CKD) Epinephrine (ADRENALIN CHLORIDE) 4 MG ASDIR IV Dextrose/Water (DEXTROSE 5% WATER) 246 MLGlucagon (GLUCAGON) 1 MG ASDIR PRN IM Magnesium Sulfate (MAGNESIUM SULFATE 4GM/SWFI 100ML) 100 ML ASDIR PRN IV Magnesium Sulfate (MAGNESIUM SULFATE 2GM/SWFI 50ML) 50 ML ASDIR PRN IV Magnesium Sulfate/Dextrose (MAGNESIUM SULFATE 1GM/D5W 100ML) 100 ML ASDIR PRN IV Nitroglycerin/Dextrose (NITROGLYCERIN 50,000MCG/D5W 250ML) 250 ML ASDIR IV Norepinephrine Bitartrate (NOREPINEPHRINE 8 MG/NS 250 ML) 250 ML TITRATE IV Ondansetron HCl (ZOFRAN) 4 MG Q6H PRN PRN IV Oxycodone HCl (ROXICODONE) 5 MG Q4H PRN PRN PO Oxycodone HCl (ROXICODONE) 10 MG Q4H PRN PRN PO Potassium Chloride (KCL 20MEQ/SWFI 100ML) 100 ML ASDIR PRN IV Sodium Bicarbonate (SODIUM BICARBONATE) 50 MEQ ASDIR PRN IV Sodium Chloride (SODIUM CHLORIDE 0.9%) 1,000 ML .Q20H IV (DC) Sodium Chloride (SODIUM CHLORIDE 0.9%) 250 ML Q24H IV Albumin Human (ALBUMINAR-25%) 12.5 GM ASDIR PRN IV Heparin Sodium (Porcine) (HEPARIN SODIUM) 3,000 UNIT ASDIR PRN DIALYSIS Lidocaine HCl (LIDOCAINE HCL/PF) 0.5 ML ASDIR PRN I-DERMAL (CKD) Mannitol (Mannitol 20%) 12.5 GM ASDIR PRN IV Sodium Chloride (SODIUM CHLORIDE 0.9%) 2,000 ML ASDIR PRN IV Tamsulosin HCl (Flomax 0.4 mg) 0.4 MG BEDTIME PO ResultsFindings/data:Laboratory Tests 07/12 07/11 07/11 0412 8486 2321 Blood Gas Puncture Site Art Line Art Line Art Line O2 Saturation (90 - 100 %) 89.5 L 95.2 93.9 ABG pH (7.35 - 7.45) 7.371 7.347 L 7.381 ABG pCO2 (35.0 - 45 mmHg) 34.5 L 37.9 36.5 ABG pO2 (80 - 100.0 mmHg) 58.5 L 80.5 71.5 L ABG HCO3 (22.0 - 26.0 MMOL/L) 20.0 L 20.8 L 21.7 L ABG Total CO2 21.1 22.0 22.8 ABG Base Excess (-4.0 - 4.0 MMOL/L) -5.3 L -4.8 L -3.4 ABG Hematocrit (37.5 - 50.7 %) 27 L 27 L 27 L ABG Hemoglobin (12.5 - 16.9 G/DL) 9.2 L 9.3 L 9.2 L Marylu Test N/A [...] Tests 07/12 07/12 07/11 07/11 07/11 0412 8050 2219 2028 1554Yhemistry Sodium (134 - 147 mEq/L) 132 L [...] mg/dL) 2.69 H 07/11 07/11 07/11 1545 0948 0743 Chemistry Sodium (134 - 147 mEq/L) 132 [...] (Auto) (14.0 - 32.0 %) 4.8 L Starke % (Auto) (4.8 - 9.0 %) 6.5 Eos % (Auto) (0.3 - 3.7 %) 4.1 H Baso % (Auto) (0.0 - 2.0 %) 0.5 Neut # (Auto) (2.0 - 7.6 x10 3/uL) 14.13 H Lymph # (Auto) (1.0 - 3.8 x10 3/uL) 0.81 L Starke # (Auto) (0.1 - 0.8 x10 3/uL) 1.10 H Eos # (Auto) (0.0 - 0.2 x10 3/uL) 0.70 H Baso # (Auto) (0.0 - 0.2 x10 3/uL) 0.09 Abs Immat Gran (auto) (0.00 - 0.03 x10 3/uL) 0.15 H Add Manual Diff NO Immature Gran % (0.0 - 2.0 %) 0.9 Nucleated RBC % (0 - 0 %) 0.0 Nucleated RBCs # (Man) (0.0 - 0.1 x10 3/uL) 0.00 Laboratory Tests 07/12/22 0407:[Embedded Image Not Available] 07/11/22 2220:[Embedded Image Not Available] 07/11/22 1545:[Embedded Image Not Available] Radiology dataRecent Impressions:ULTRASOUND - US RETRO LTD 07/12 1624 Report Impression - Status: SIGNED Entered: 07/13/2022 0604 IMPRESSION: Moderate left hydronephrosis, appears slightly improved compared to prior exam.Findings suggestive of medical renal disease. Impression By: StevenABKanu - Delmer Palma M.D. Free Text Obj NotesFree Text Obj Notes:General appearance: Elderly male in no acute distress, interactive and conversationalHEENT: atraumatic, normocephalic, moist mucosal membranesNeck: full range of motion, supple/no meningismusCardiovascular: S1-S2 regular rate and rhythmRespiratory: symmetric expansion, no acute respiratory distressAbdomen: soft, non-tender, no distention, no guardingGenitourinary: waters with clear urineExtremities: pedal pulses palpable, moves all, no cyanosis, mild LE edemaMusculoskeletal: normal inspection, no muscle spasmNeuro/GIFT OFFICER: alert and oriented x3, CNII-XII grossly intact, no motor deficitsSkin: dry, intact and clean surgery dressing Diagnosis, Assessment PlanProblem list/A P: 1. CLAUDETTE (acute kidney injury) 2. CAD (coronary artery disease) 3. Goiter 4. BPH (benign prostatic hyperplasia) 5. Dyslipidemia 6. HTN (hypertension) Free text A P:73-year-old male with Acute pulmonary insufficiency following thoracic surgeryStatus post CABG x 5 (MISTRY-LAD, SVG-Ladonna, SVG-OM1< SVG-OM3, SVG-PDA) and ALAAAcute blood loss anemiaHypotensionIschemic cardiomyopathy, EF 30 to 34%Multivessel CADAKI on hemodialysis Continue mechanical ventilation, vent settings reviewedTitrate FiO2 to keep saturation more than 90%.Spontaneous breathing trial as soon as possibleWean to extubateFollow ABGs and CXRsABG shows metabolic acidosis. Patient received 2 A of sodium bicarb and 1 g of calciumKeep off sedationJudicious pain controlMilrinone drip 0.25Epinephrine dripNorepinephrine dripVasopressin dripTitrate drips to keep MAP more than 65Wean milrinone off first per CV surgeryMinimize fluids per CV surgeryAspirin and PlavixAtorvastatinMetoprololFollow lactate levelMonitor chest tube outputHemodialysis per nephrologyMonitor urine output and kidney functionMonitor and replete electrolytesPerioperative antibioticsCardiac diet with bowel regimen once extubatedBG control with insulin gtt per protocolPT/OTVTE prophylaxis.Stress ulcer prophylaxis.Discussed with CV surgery, anesthesia and ICU teamCritical care time 85 minutes 2/1Appears neuro intact, multimodal pain control, minimize narcotic use, no CO2 narcosisExtubated successfully, sats well on NC, wean O2, monitor for hypercapnia, encourage I-S, obtain serial ABGs, CXR reviewedHD unstable, weaning vasopressors and inotrope, monitor HD parameters, low CVP, lactic acidosis with uptrending lactate, gentle volume resuscitationOliguric CLAUDETTE, plan for CRRT per renal, hyperkalemia treated, obtain serial labPO challenge, bowel regimen, serial abdominal exam, monitor LFTsLeukocytosis postop, likely reactive, trend WBC, s/p antibiotic course for UTI ,periop antibioticsHgb trending down, no evidence of active bleed, monitor CTs output, RBC given HDinstabilityBlood glucose control with insulin drip per protocolEncourage PT/OT and activity as toleratedDVT and GI prophylaxis with DAPT and PPI 2/2Appears neuro intact, multimodal pain control, minimize narcotic usesats well on NC, wean O2, encourage I-S, ABG and CXR reviewedHD fairly stable, on minimal vasopressor support, lactic acidosis cleared s/p resuscitationOliguric CLAUDETTE, tolerated CRRT, holding off per renal, monitor UOP and electrolytes closelyOral diet as tolerated, bowel regimen, monitor LFTsLeukocytosis postop, trend WBC, treated for UTI preopHgb responded to PRBC, no evidence of active bleed, minimal CTs outputBlood glucose control, transitioned insulin drip to SSIEncourage PT/OT and out of bed as toleratedDVT and GI prophylaxis with DAPT and PPI 2/3Remains neuro intact, pain appears well controlledSats well on NC, wean O2, encourage I-S, ABG and CXR reviewedHD unstable, remains on minimal vasopressor support, attempt to wean, start midodrineOliguric CLAUDETTE, off CRRT per renal, minimal UOP, started renal dose dopamine dripTolerating oral diet, continue bowel regimen, LFTs normalizedLeukocytosis postop, continue to trend WBC, treated for UTI preopHgb stable s/p PRBC, no evidence of active bleed, monitor pCT outputBlood glucose control with sliding scale insulinEncourage PT/OT and out of bed as tolerated, CM for dispo planDVT and GI prophylaxis with DAPT and PPI 2/4Remains neuro intact, pain appears well controlledSats well on NC, wean O2, encourage I-S, ABG and CXR reviewedHD unstable, weaning vasopressors, increase midodrine dose, remains in SRAKI, likely postrenal, improved UOP, HD today per renal, hyperkalemia treatedTolerating oral diet, has bowel movement and bowel regimen, LFTs normalizedLeukocytosis, WBC trending down, currently off antibiotics s/p treatment for UTIHgb remains stable s/p PRBC, no evidence of active bleed, minimal CT outputBlood glucose control with sliding scale insulinEncourage PT/OT and out of bed as tolerated, CM for dispo plan, IPR consultedDVT and GI prophylaxis with DAPT and PPI Consultants: cardiology, cardiovascular surgery, nephrologyPlan discussed with: patient, consultants, nurse, interdisc care teamCritical care time: Minutes: 39 at 0247 RPT #:[id number] OF REPORTPRProgress [id number]:[id number] Available for patient [id number]:47:36 [facility] 2022-07-12 07:07:00 [id number]:07:00 [facility] ([facility])Rehab Progress NoteREPORT#:[id number] REPORT STATUS: SignedDATE:07/12/22 TIME: 706 PATIENT: SHERRI ARCE UNIT #: [id number]#: [id number] [address] [birth year] AGE: 81 SEX: M ATTEND: Sarbjit Mcarthur MDADM AUTHOR: Magdaleno Washburn * ALL edits or amendments must be made on the electronic/computer document * SubjectiveChief complaint:Rehab follow-upSeen in [facility]oin fairFatigues easily Denies NAIK/N/V/D/CP14 systems reviewed and neg. except that above. Objective GeneralVS:Vital Signs: Date Time Temp Pulse Resp B/P B/P Pulse O2 O2 Flow FiO2 Mean Ox Delivery Rate 02/04 0627 72 28 137/53 74 100 [...] 79 95 02/03 2029 121/48 64 02/03 2030 57 24 107/56 [...] 0845 89.1 75 27 156/63 84 97 02/ 0830 99.1 79 31 149/61 81 97 02/ 0815 99.1 80 29 148/60 80 96 02/ 0800 Nasal 5 cannula 02/ 0800 99.0 82 29 96/57 69 94 02/ 0746 94 Nasal 5 cannula / 0745 99.0 85 28 142/54 73 94 / 0730 99.0 86 24 101/59 76 94 02/ 0715 99.0 87 30 106/37 53 93 PATIENT WEIGHT: Weight (lb): 207Weight (oz): 7.28Weight (kg): 94.100 Medications:Active Meds + DC'd Last 24 HrsSodium Bicarbonate (SODIUM BICARBONATE) 650 MG BID PO Dextrose/Water (DEXTROSE 50% W SYRINGE) 50 ML ONCE ONE IV (DC) Insulin Human Regular (HUMAN INSULIN REG) 10 UNITS STAT STA IV (DC) Ipratropium [place] (ATROVENT) 500 MCG RTQ2H PRN PRN INH Albumin Human (ALBUMINAR 5% 12.5GM/250ML) 250 ML ONCE ONE IV (DC) Albumin Human (ALBUMINAR 5% 12.5GM/250ML) 250 ML ONCE ONE IV (DC) Furosemide (LASIX 40 mg/4 mL INJECTION) 80 MG ONCE ONE IV (DC) Midodrine (PROAMATINE) 2.5 MG 0900,1300,1700 PO Furosemide (LASIX 40 mg/4 mL INJECTION) 60 MG ONCE ONE IV (DC) Lactulose (LACTULOSE) 20 GM DAILY PRN PRN PO Cyanocobalamin (Vitamin B-12 500 mcg tab) 500 MCG DAILY PO Ferrous Sulfate (FERROUS SULFATE) 325 MG DAILY PO Dopamine HCl/Dextrose (DOPamine 400MG/D5W 250ML) 250 ML ASDIR IV Bisacodyl (DULCOLAX) 10 MG ONCE PRN RECTAL Insulin Human Lispro (HUMALOG) 0 AC HS SUBQ (DC) Atorvastatin Calcium (LIPITOR) 40 MG 2100 PO Clopidogrel Bisulfate (Plavix) 75 MG DAILY PO Polyethylene Glycol (MIRALAX) 17 GM DAILY PO Miscellaneous Information (PHARMACY TO DOSE/EVALUATE) 1 EACH ASDIR MISC Calcium Chloride (CALCIUM CHLORIDE) 1 GM ASDIR PRN IV Sodium Chloride (SODIUM CHLORIDE 0.9%) 100 MLCalcium Chloride (CALCIUM CHLORIDE) 2 GM ASDIR PRN IV Sodium Chloride (SODIUM CHLORIDE 0.9%) 100 MLMagnesium Sulfate (MAGNESIUM SULFATE 4GM/SWFI 100ML) 100 ML ASDIR PRN IV Magnesium Sulfate (MAGNESIUM SULFATE 2GM/SWFI 50ML) 50 ML ASDIR PRN IV Miscellaneous (PRISMASATE BGK 4/2.5 SOLUTION) 5,000 ML ASDIR DIALYSIS Potassium Chloride (KCL 10MEQ/SWFI 50ML) 50 ML ASDIR PRN IV Sodium Chloride (SODIUM CHLORIDE 0.9%) 2,000 ML ASDIR PRN IV Sodium Phosphate (SODIUM PHOSPHATE) 25 MMOL ASDIR PRN IV Sodium Chloride (SODIUM CHLORIDE 0.9%) 250 MLSodium Phosphate (SODIUM PHOSPHATE) 20 MMOL ASDIR PRN IV Sodium Chloride (SODIUM CHLORIDE 0.9%) 250 MLSodium Phosphate (SODIUM PHOSPHATE) 15 MMOL ASDIR PRN IV Sodium Chloride (SODIUM CHLORIDE 0.9%) 250 MLPantoprazole (PROTONIX) 40 MG DAILY@0600 PO Aspirin (ASPIRIN) [...] (Senna Lax 8.6 MG TABLET) 17.2 MG BEDTIME PO Ipratropium [place] (ATROVENT) 500 MCG RTQ4H INH Acetaminophen (TYLENOL) 650 MG Q4H PRN PRN PO Acetaminophen (TYLENOL) 650 MG Q4H PRN PRN RECTAL Calcium Chloride (CALCIUM CHLORIDE) 1 GM ASDIR PRN IV Dextrose/Water (DEXTROSE 10% IN WATER) 125 ML ASDIR PRN IV (CKD) Dextrose/Water (DEXTROSE 10% IN WATER) 250 ML ASDIR PRN IV (CKD) Epinephrine (ADRENALIN CHLORIDE) 4 MG ASDIR IV Dextrose/Water (DEXTROSE 5% WATER) 246 MLGlucagon (GLUCAGON) 1 MG ASDIR PRN IM Magnesium Sulfate (MAGNESIUM SULFATE 4GM/SWFI 100ML) 100 ML ASDIR PRN IV Magnesium Sulfate (MAGNESIUM SULFATE 2GM/SWFI 50ML) 50 ML ASDIR PRN IV Magnesium Sulfate/Dextrose (MAGNESIUM SULFATE 1GM/D5W 100ML) 100 ML ASDIR PRN IV Nitroglycerin/Dextrose (NITROGLYCERIN 50,000MCG/D5W 250ML) 250 ML ASDIR IV Norepinephrine Bitartrate (NOREPINEPHRINE 8 MG/NS 250 ML) 250 ML TITRATE IV Ondansetron HCl (ZOFRAN) 4 MG Q6H PRN PRN IV Oxycodone HCl (ROXICODONE) 5 MG Q4H PRN PRN PO Oxycodone HCl (ROXICODONE) 10 MG Q4H PRN PRN PO Potassium Chloride (KCL 20MEQ/SWFI 100ML) 100 ML ASDIR PRN IV Sodium Bicarbonate (SODIUM BICARBONATE) 50 MEQ ASDIR PRN IV Sodium Chloride (SODIUM CHLORIDE 0.9%) 1,000 ML .Q20H IV (DC) Sodium Chloride (SODIUM CHLORIDE 0.9%) 250 ML Q24H IV Albumin Human (ALBUMINAR-25%) 12.5 GM ASDIR PRN IV Heparin Sodium (Porcine) (HEPARIN SODIUM) 3,000 UNIT ASDIR PRN DIALYSIS Lidocaine HCl (LIDOCAINE HCL/PF) 0.5 ML ASDIR PRN I-DERMAL (CKD) Mannitol (Mannitol 20%) 12.5 GM ASDIR PRN IV Sodium Chloride (SODIUM CHLORIDE 0.9%) 2,000 ML ASDIR PRN IV Tamsulosin HCl (Flomax 0.4 mg) 0.4 MG BEDTIME PO Functional ProgressFunctional progress: Weightbearing: STERNAL Ambulation Distance: 10FT X2 Progression: Forward Assistance Level: Minimal Assistance Gait Deviations: SLOW Base of Support - Narrow [facility] Mobility: No Document Pain/Education: No Advanced Progression: No Effects of Treatment: Cardio tolerance improved Function Improved Post TX Precautions: In Chair Call Light in Reach Nursing Notified O2 on Review Plan of Care: Yes PT charges: Gait Training [id number] Gait Cmt: Pt AMBUALTED 10FT X2, RW, WC FOLLOW, MIN A. MOD A SUPINE>SIT. 2 PERSON ASSIST FOR LINE MANAGEMENT. VITALS MONITORED DURING TX, Pts BP LOWEST 90/51, RECOVERED TO 120/65. PROGRESS Pt WITH OUT OF ROOM AMBULATION TOLERATED. If this is the patient's last treatment, this entry serves as the discharge summary: Y Start Time: 1006 Stop Time: 1030 Treatment Time: (minutes) 0:24 Completed by: Seymour Amador Conference/Supervising PT: Yes Supervising Therapist: [email or web address] Seymour Amador Reviewed and Approved By: SEYMOUR AMADOR, PT . BED MOBILITY: Yes Rolling Right/Left: Supervision or Set-up Supine to Sit: Moderate Assistance Scooting in bed: Moderate Assistance TRANSFERS: Yes Bed to/from chair: Moderate Assistance Sit to/from stand: Moderate Assistance Physical ExamGeneral appearance: alert, awakePsych: alert, oriented x 3HEENT: anicteric, sclera clearNeck: supple, no JVDCardiovascular: regular rate rhythm, S1/C3Uldyalctqri: aerating well, clear bilaterallyAbdomen: bowel sounds present, non-distended, softSkin: intact, no rashMusculoskeletal - general: Musculoskeletal - general: joints normal, normal muscle mass, normal toneNeuro/GIFT OFFICER: alert, oriented X 3, CNII-XII intact ResultsFindings/Data:Laboratory Tests: 07/12 07/12 07/11 07/11 0412 0407 2219 2028Blood Gas Puncture Site Art Line O2 Saturation [...] 1.7 mmol/l) 0.6 L O2 Delivery Device HFNCChemistry Sodium (134 - 147 mEq/L) 132 L [...] 1.09 Magnesium (1.80 - 2.40 mg/dL) 2.69 HHematology WBC (4.5 - 11.0 x10 3/uL) 17.0 [...] (Auto) (14.0 - 32.0 %) 4.8 L Starke % (Auto) (4.8 - 9.0 %) 6.5 Eos % (Auto) (0.3 - 3.7 %) 4.1 H Baso % (Auto) (0.0 - 2.0 %) 0.5 Neut # (Auto) (2.0 - 7.6 x10 3/uL) 14.13 H Lymph # (Auto) (1.0 - 3.8 x10 3/uL) 0.81 L Starke # (Auto) (0.1 - 0.8 x10 3/uL) 1.10 H Eos # (Auto) (0.0 - 0.2 x10 3/uL) 0.70 H Baso # (Auto) (0.0 - 0.2 x10 3/uL) 0.09 Abs Immat Gran (auto) (0.00 - 0.03 x10 3/uL) 0.15 H Add Manual Diff NO Immature Gran % (0.0 - 2.0 %) 0.9 Nucleated RBC % (0 - 0 %) 0.0 Nucleated RBCs # (Man) (0.0 - 0.1 x10 3/uL) 0.00 02/03 0203 0207/11 1551 1545 0998 0700 Blood Gas Puncture Site Art Line Art [...] - 2.40 mg/dL) 2.72 H Diagnosis, Assessment PlanFree Text A P:Non-STEMIMultivessel CADS/p CABG j2Cfdmorzh deconditioningImpaired mobility and gaitPostoperative anemiaDyslipidemiaHypertensionAKIAcute systolic heart failureHemodynamic issues postopLeukocytosis trending down Plan:Continue PT/OTOut of bed to chairWork on strength, bed mobility, transfers, gaitSternal precautionIncrease enduranceFall precautionsMonitor p.o. intake and nutritionStrict decubitus precautionsAdvance therapies as toleratedWean pressors as toleratedNephrology managing renal issuesIRF consulted. Will require insurance approval Total time was 33 minutes > 50% with patient performing physical examination, discussing plan of care, goals, therapies, progress, medications, labs. All questions answeredRehab attestation:. at 1947 RPT #:[id number] OF REPORTPRProgress [id number]:07:[id number] Available for patient [id number]:48:28 [facility] 2022-07-11 16:03:00 [id number]:03:00 [facility] ([facility])Nephrology Progress NoteREPORT#:[id number] REPORT STATUS: SignedDATE:07/11/22 TIME: 1603 PATIENT: SHERRI ARCE UNIT #: [id number]#: [id number] [address] [birth year] AGE: 81 SEX: M ATTEND: Radha Ward [facility] AUTHOR: Evelina Plaza MD * ALL edits or amendments must be made on the electronic/computer document * SubjectiveChief complaint:has no complaints. Objective GeneralVS/I O:Vital Signs: Date Time Temp Pulse Resp B/P B/P Pulse O2 O2 Flow FiO2 Mean Ox Delivery Rate / 0800 Nasal 5 cannula 02/ 0746 94 Nasal 5 cannula 02/03 0556 [...] 2200 99.9 83 28 122/58 84 93 /02 2129 100.4 83 28 146/68 98 89 02/02 2099 138/50 70 02/02 2099 100.2 71 29 111/56 77 93 /2029 145/48 68 /02 2029 100.0 72 29 111/57 79 93 07/10 1999 High flow 2 nasal cannula 07/10 1999 115/36 52 02/02 1999 99.9 76 27 86/47 61 93 02/02 1941 95 Nasal 3 cannula 07/10 1930 108/36 51 02/02 1930 100.0 77 [...] I O ending at 0700: 07/11 0700 / 1900 Intake Total 1017.00 1283.00 Output Total 240 1027 Balance 777.00 256.00 Intake, IV 427.00 383.00 Intake, Oral 240 560 Intake, Oral 240 Supplement Intake, Other 100 Intake, 350 Packed Cells Number Voids Output, CRRT 489 Ultrafiltration Output, Chest 200 395 Tube Drainage Output, Urine 40 143 Patient 92 kg Weight Weight Bed scale Measurement Method PATIENT WEIGHT: Weight (lb): 202Weight (oz): 13.2Weight (kg): 92.000 MedicationsActive Meds + DC'd Last 24 HrsIpratropium [place] (ATROVENT) 500 MCG RTQ2H PRN PRN INH Albumin Human (ALBUMINAR 5% 12.5GM/250ML) 250 ML ONCE ONE IV Furosemide (LASIX 40 mg/4 mL INJECTION) 80 MG ONCE ONE IV (DC) Midodrine (PROAMATINE) 2.5 MG 0900,1300,1700 PO Furosemide (LASIX 40 mg/4 mL INJECTION) 60 MG ONCE ONE IV (DC) Lactulose (LACTULOSE) 20 GM DAILY PRN PRN PO Cyanocobalamin (Vitamin B-12 500 mcg tab) 500 MCG DAILY PO Ferrous Sulfate (FERROUS SULFATE) 325 MG DAILY PO Calcium Gluconate/Sodium Chloride (Calcium Gluconate 1 GM/NS 50 mL) 50 ML ONCE ONE IV (DC) Dopamine HCl/Dextrose (DOPamine 400MG/D5W 250ML) 250 ML ASDIR IV Bisacodyl (DULCOLAX) 10 MG ONCE PRN RECTAL Insulin Human Lispro (HUMALOG) 0 AC HS SUBQ (DC) Atorvastatin Calcium (LIPITOR) 40 MG 2100 PO Clopidogrel Bisulfate (Plavix) 75 MG DAILY PO Polyethylene Glycol (MIRALAX) 17 GM DAILY PO Miscellaneous Information (PHARMACY TO DOSE/EVALUATE) 1 EACH ASDIR MISC Calcium Chloride (CALCIUM CHLORIDE) 1 GM ASDIR PRN IV Sodium Chloride (SODIUM CHLORIDE 0.9%) 100 MLCalcium Chloride (CALCIUM CHLORIDE) 2 GM ASDIR PRN IV Sodium Chloride (SODIUM CHLORIDE 0.9%) 100 MLMagnesium Sulfate (MAGNESIUM SULFATE 4GM/SWFI 100ML) 100 ML ASDIR PRN IV Magnesium Sulfate (MAGNESIUM SULFATE 2GM/SWFI 50ML) 50 ML ASDIR PRN IV Miscellaneous (PRISMASATE BGK 4/2.5 SOLUTION) 5,000 ML ASDIR DIALYSIS Potassium Chloride (KCL 10MEQ/SWFI 50ML) 50 ML ASDIR PRN IV Sodium Chloride (SODIUM CHLORIDE 0.9%) 2,000 ML ASDIR PRN IV Sodium Phosphate (SODIUM PHOSPHATE) 25 MMOL ASDIR PRN IV Sodium Chloride (SODIUM CHLORIDE 0.9%) 250 MLSodium Phosphate (SODIUM PHOSPHATE) 20 MMOL ASDIR PRN IV Sodium Chloride (SODIUM CHLORIDE 0.9%) 250 MLSodium Phosphate (SODIUM PHOSPHATE) 15 MMOL ASDIR PRN IV Sodium Chloride (SODIUM CHLORIDE 0.9%) 250 MLPantoprazole (PROTONIX) 40 MG DAILY@0600 PO Aspirin (ASPIRIN) [...] (Senna Lax 8.6 MG TABLET) 17.2 MG BEDTIME PO Ipratropium [place] (ATROVENT) 500 MCG RTQ4H INH Acetaminophen (TYLENOL) 650 MG Q4H PRN PRN PO Acetaminophen (TYLENOL) 650 MG Q4H PRN PRN RECTAL Calcium Chloride (CALCIUM CHLORIDE) 1 GM ASDIR PRN IV Dextrose/Water (DEXTROSE 10% IN WATER) 125 ML ASDIR PRN IV (CKD) Dextrose/Water (DEXTROSE 10% IN WATER) 250 ML ASDIR PRN IV (CKD) Epinephrine (ADRENALIN CHLORIDE) 4 MG ASDIR IV Dextrose/Water (DEXTROSE 5% WATER) 246 MLGlucagon (GLUCAGON) 1 MG ASDIR PRN IM Magnesium Sulfate (MAGNESIUM SULFATE 4GM/SWFI 100ML) 100 ML ASDIR PRN IV Magnesium Sulfate (MAGNESIUM SULFATE 2GM/SWFI 50ML) 50 ML ASDIR PRN IV Magnesium Sulfate/Dextrose (MAGNESIUM SULFATE 1GM/D5W 100ML) 100 ML ASDIR PRN IV Nitroglycerin/Dextrose (NITROGLYCERIN 50,000MCG/D5W 250ML) 250 ML ASDIR IV Norepinephrine Bitartrate (NOREPINEPHRINE 8 MG/NS 250 ML) 250 ML TITRATE IV Ondansetron HCl (ZOFRAN) 4 MG Q6H PRN PRN IV Oxycodone HCl (ROXICODONE) 5 MG Q4H PRN PRN PO Oxycodone HCl (ROXICODONE) 10 MG Q4H PRN PRN PO Potassium Chloride (KCL 20MEQ/SWFI 100ML) 100 ML ASDIR PRN IV Sodium Bicarbonate (SODIUM BICARBONATE) 50 MEQ ASDIR PRN IV Sodium Chloride (SODIUM CHLORIDE 0.9%) 1,000 ML .Q20H IV Sodium Chloride (SODIUM CHLORIDE 0.9%) 250 ML Q24H IV Albumin Human (ALBUMINAR-25%) 12.5 GM ASDIR PRN IV Heparin Sodium (Porcine) (HEPARIN SODIUM) 3,000 UNIT ASDIR PRN DIALYSIS Lidocaine HCl (LIDOCAINE HCL/PF) 0.5 ML ASDIR PRN I-DERMAL (CKD) Mannitol (Mannitol 20%) 12.5 GM ASDIR PRN IV Sodium Chloride (SODIUM CHLORIDE 0.9%) 2,000 ML ASDIR PRN IV Tamsulosin HCl (Flomax 0.4 mg) 0.4 MG BEDTIME PO Physical ExamGeneral appearance: alert, awake, orientedHead/eyes: atraumatic, normocephalicENT: moist mucous membranes, normal noseNeck: non-tender, no JVDExtremities: no edema, no swellingNeuro/GIFT OFFICER: alert, oriented X 3, normal speechSkin: dry, intact ResultsFindings/Data:Laboratory Tests 07/11 07/11 07/11 07/11 1551 0948 0430 0226Blood Gas Puncture Site Art Line Art Line [place] Ally Art Line O2 Saturation (90 - 100 %) 95.2 93.9 91.8 ABG pH (7.35 - 7.45) 7.347 L 7.381 7.375 ABG pCO2 (35.0 - 45 mmHg) 37.9 36.5 40.6 ABG pO2 (80 - 100.0 mmHg) 80.5 71.5 L 64.8 L ABG HCO3 (22.0 - 26.0 MMOL/L) 20.8 L 21.7 L 23.8 ABG Total CO2 22.0 22.8 25.0 ABG Base Excess (-4.0 - 4.0 MMOL/L) -4.8 L -3.4 -1.4 ABG Hematocrit (37.5 - 50.7 %) 27 L 27 L 31 L 27 L ABG [...] 98.8 O2 Delivery Device Cannula Cannula HFNC HFTN Laboratory Tests 07/11 07/11 07/11 07/11 07/11 1551 1545 0991 0748 0430 Chemistry POC Creatinine (0.8 - 1.3 mg/dL) 3.8 H 3.6 H 3.6 H POC Glucose (70 - 110 MG/DL) 117 H POC Glucose (mg/dL) (70 - 110 MG/DL) 159 H 122 H 102 Ionized Calcium Tenzin (1.09 - 1.30 MMOL/L) 1.17 07/119 0229 225 2007 1626Chemistry Sodium (134 - 147 mEq/L) 136 137 [...] 8.6 Ionized Calcium Tenzin (1.09 - 1.30 1.14MMOL/L) Magnesium (1.80 - 2.40 mg/dL) 2.89 H [...] (Auto) (14.0 - 32.0 %) 4.2 L Starke % (Auto) (4.8 - 9.0 %) 7.5 Eos % (Auto) (0.3 - 3.7 %) 0.8 Baso % (Auto) (0.0 - 2.0 %) 0.3 Neut # (Auto) (2.0 - 7.6 x10 3/uL) 19.22 H Lymph # (Auto) (1.0 - 3.8 x10 3/uL) 0.93 L Starke # (Auto) (0.1 - 0.8 x10 3/uL) 1.66 H Eos # (Auto) (0.0 - 0.2 x10 3/uL) 0.17 Baso # (Auto) (0.0 - 0.2 x10 3/uL) 0.06 Abs Immat Gran (auto) (0.00 - 0.03 x10 3/uL) 0.19 H Add Manual Diff NO Immature Gran % (0.0 - 2.0 %) 0.9 Nucleated RBC % (0 - 0 %) 0.0 Nucleated RBCs # (Man) (0.0 - 0.1 x10 3/uL) 0.00 Immature Plt Fraction (0.9 - 11.2 %) 6.5 Radiology data:Recent Impressions:RADIOLOGY - XR CHEST 1 V 07/11 0554 Report Impression - Status: SIGNED Entered: 07/11/2022 1255 IMPRESSION: 1. Moderate enlarged cardiac silhouette. 2. Small bilateral pleural effusions. 3. Moderate to severe pulmonary edema versus infiltrates, pneumonia. Progression of opacities within right lower chest. 4. Degenerative and postsurgical changes are demonstrated, as described above. Impression By: [email or web address] - Manuel Vega M.D. Diagnosis, Assessment PlanFree Text A P:Assessment:1-CLAUDETTE likely from urinary retention. oliguric CLAUDETTE now post op, from shock!2- non-STEMI: multivessel disease w main left. S/P CABG X5 on - BPH. Waters catheter is in place.4-severe bilateral hydronephrosis5- shock : Cardiogenic6-hyperlipidemia Plan:- unknown Scr baseline. - He underwent LHC on 07/03. Started on HD without UF on 07/04 for clearance- Ultrasound showed severe bilateral hydronephrosis. Continue Waters catheter. Urology consulted. - s/p CABG X5 on 07/08- hemodynamic support, titrate vasopressors for MAP>65. - on dopamine to improve renal perfusion but still anuric. recommend to increasedopamine dose to vasoconstrictive dose. Gave albumin + diuretic challenge dose. - no emergent need for HD. - continue Waters catheter and strict intake and output Discussed with patient and cardiothoracic surgery team Consultants: cardiology, cardiovascular surgery, nephrology at 1606 RPT #:[id number] OF REPORTPRProgress [id number]:03:[id number] Available for patient [id number]:06:48 [facility] 2022-07-11 14:32:00 [id number]:32:00 [facility] ([facility])Cardiology Progress NoteREPORT#:[id number] REPORT STATUS: SignedDATE:07/11/22 TIME: 1432 PATIENT: SHERRI ARCE UNIT #: [id number]#: [id number] [address] [birth year] AGE: 81 SEX: M ATTEND: Radha Ward [facility] AUTHOR: Sonya Stacy AGACNP * ALL edits or amendments must be made on the electronic/computer document * SubjectiveComments:Awake and alert Hypotension, unable to wean off pressrors Objective GeneralVS/I O:24 hour I O ending at 0700: 07/11 [...] O2 Flow FiO2 Mean Ox Delivery Rate 07/11 0800 Nasal 5 cannula 07/11 0746 94 Nasal 5 cannula / 0556 [...] 83/49 62 97 PATIENT WEIGHT: Weight (lb): 202Weight (oz): 13.2Weight (kg): 92.000 Medications:Active Meds + DC'd Last 24 HrsIpratropium [place] (ATROVENT) 500 MCG RTQ2H PRN PRN INH Midodrine (PROAMATINE) 2.5 MG 0900,1300,1700 PO Furosemide (LASIX 40 mg/4 mL INJECTION) 60 MG ONCE ONE IV (DC) Lactulose (LACTULOSE) 20 GM DAILY PRN PRN PO Cyanocobalamin (Vitamin B-12 500 mcg tab) 500 MCG DAILY PO Ferrous Sulfate (FERROUS SULFATE) 325 MG DAILY PO Calcium Gluconate/Sodium Chloride (Calcium Gluconate 1 GM/NS 50 mL) 50 ML ONCE ONE IV (DC) Dopamine HCl/Dextrose (DOPamine 400MG/D5W 250ML) 250 ML ASDIR IV Bisacodyl (DULCOLAX) 10 MG ONCE PRN RECTAL Insulin Human Lispro (HUMALOG) 0 AC HS SUBQ (DC) Atorvastatin Calcium (LIPITOR) 40 MG 2100 PO Clopidogrel Bisulfate (Plavix) 75 MG DAILY PO Polyethylene Glycol (MIRALAX) 17 GM DAILY PO Miscellaneous Information (PHARMACY TO DOSE/EVALUATE) 1 EACH ASDIR MISC Calcium Chloride (CALCIUM CHLORIDE) 1 GM ASDIR PRN IV Sodium Chloride (SODIUM CHLORIDE 0.9%) 100 MLCalcium Chloride (CALCIUM CHLORIDE) 2 GM ASDIR PRN IV Sodium Chloride (SODIUM CHLORIDE 0.9%) 100 MLMagnesium Sulfate (MAGNESIUM SULFATE 4GM/SWFI 100ML) 100 ML ASDIR PRN IV Magnesium Sulfate (MAGNESIUM SULFATE 2GM/SWFI 50ML) 50 ML ASDIR PRN IV Miscellaneous (PRISMASATE BGK 4/2.5 SOLUTION) 5,000 ML ASDIR DIALYSIS Potassium Chloride (KCL 10MEQ/SWFI 50ML) 50 ML ASDIR PRN IV Sodium Chloride (SODIUM CHLORIDE 0.9%) 2,000 ML ASDIR PRN IV Sodium Phosphate (SODIUM PHOSPHATE) 25 MMOL ASDIR PRN IV Sodium Chloride (SODIUM CHLORIDE 0.9%) 250 MLSodium Phosphate (SODIUM PHOSPHATE) 20 MMOL ASDIR PRN IV Sodium Chloride (SODIUM CHLORIDE 0.9%) 250 MLSodium Phosphate (SODIUM PHOSPHATE) 15 MMOL ASDIR PRN IV Sodium Chloride (SODIUM CHLORIDE 0.9%) 250 MLPantoprazole (PROTONIX) 40 MG DAILY@0600 PO Aspirin (ASPIRIN) [...] (Senna Lax 8.6 MG TABLET) 17.2 MG BEDTIME PO Ipratropium [place] (ATROVENT) 500 MCG RTQ4H INH Acetaminophen (TYLENOL) 650 MG Q4H PRN PRN PO Acetaminophen (TYLENOL) 650 MG Q4H PRN PRN RECTAL Calcium Chloride (CALCIUM CHLORIDE) 1 GM ASDIR PRN IV Dextrose/Water (DEXTROSE 10% IN WATER) 125 ML ASDIR PRN IV (CKD) Dextrose/Water (DEXTROSE 10% IN WATER) 250 ML ASDIR PRN IV (CKD) Epinephrine (ADRENALIN CHLORIDE) 4 MG ASDIR IV Dextrose/Water (DEXTROSE 5% WATER) 246 MLGlucagon (GLUCAGON) 1 MG ASDIR PRN IM Magnesium Sulfate (MAGNESIUM SULFATE 4GM/SWFI 100ML) 100 ML ASDIR PRN IV Magnesium Sulfate (MAGNESIUM SULFATE 2GM/SWFI 50ML) 50 ML ASDIR PRN IV Magnesium Sulfate/Dextrose (MAGNESIUM SULFATE 1GM/D5W 100ML) 100 ML ASDIR PRN IV Nitroglycerin/Dextrose (NITROGLYCERIN 50,000MCG/D5W 250ML) 250 ML ASDIR IV Norepinephrine Bitartrate (NOREPINEPHRINE 8 MG/NS 250 ML) 250 ML TITRATE IV Ondansetron HCl (ZOFRAN) 4 MG Q6H PRN PRN IV Oxycodone HCl (ROXICODONE) 5 MG Q4H PRN PRN PO Oxycodone HCl (ROXICODONE) 10 MG Q4H PRN PRN PO Potassium Chloride (KCL 20MEQ/SWFI 100ML) 100 ML ASDIR PRN IV Sodium Bicarbonate (SODIUM BICARBONATE) 50 MEQ ASDIR PRN IV Sodium Chloride (SODIUM CHLORIDE 0.9%) 1,000 ML .Q20H IV Sodium Chloride (SODIUM CHLORIDE 0.9%) 250 ML Q24H IV Albumin Human (ALBUMINAR-25%) 12.5 GM ASDIR PRN IV Heparin Sodium (Porcine) (HEPARIN SODIUM) 3,000 UNIT ASDIR PRN DIALYSIS Lidocaine HCl (LIDOCAINE HCL/PF) 0.5 ML ASDIR PRN I-DERMAL (CKD) Mannitol (Mannitol 20%) 12.5 GM ASDIR PRN IV Sodium Chloride (SODIUM CHLORIDE 0.9%) 2,000 ML ASDIR PRN IV Tamsulosin HCl (Flomax 0.4 mg) 0.4 MG BEDTIME PO Physical ExamGeneral appearance: alert, awake, oriented, no acute distress, pleasantNeck: full range of motion, no JVDCardiovascular: CV assessment: pedal edema (RLE - trace), regular rate and rhythm, no murmurRespiratory: decreased breath sounds, no distressAbdomen: soft, non-tender, normal bowel sounds, no distention, no guardingGenitourinary: urinary catheter, urineUpper extremity: UE assessment: normal temperature, no edemaLower extremity: LE assessment: edema (RLE trace), normal temperature, no edemaMusculoskeletal: normal inspectionNeuro/GIFT OFFICER: alert, oriented X 3, normal speechSkin: dryPsychiatry: normal affect ResultsFindings/Data:Laboratory Tests 07/11 07/11 07/11 0948 0430 0226 Blood Gas Puncture Site Art Line [place] Ally Art Line O2 Saturation (90 - [...] Temperature (F) 98.8 O2 Delivery Device Cannula [facility] Laboratory Tests 07/11 07/11 07/11 07/11 07/11 0948 0743 0430 0229 0229Chemistry Sodium (134 - 147 mEq/L) 136 Potassium [...] L Total Alk Phosphatase (20 - 125 105IUnit/L) Total Protein (6.4 - 8.2 g/dL) 6.1 [...] - 32.0 %) 4.2 L 3.2 L Starke % (Auto) (4.8 - 9.0 %) 7.5 5.4 Eos % (Auto) (0.3 - 3.7 %) 0.8 0.4 Baso % (Auto) (0.0 - 2.0 %) 0.3 0.2 Neut # (Auto) (2.0 - 7.6 x10 3/uL) 19.22 H 22.14 H Lymph # (Auto) (1.0 - 3.8 x10 3/uL) 0.93 L 0.79 L Starke # (Auto) (0.1 - 0.8 x10 3/uL) 1.66 H 1.32 H Eos # (Auto) (0.0 - 0.2 x10 3/uL) 0.17 0.09 Baso # (Auto) (0.0 - 0.2 x10 3/uL) 0.06 0.06 Abs Immat Gran (auto) (0.00 - 0.03 x10 3/uL) 0.19 H 0.26 H Add Manual Diff NO NO Immature Gran % (0.0 - 2.0 %) 0.9 1.1 Nucleated RBC % (0 - 0 %) 0.0 0.0 Nucleated RBCs # (Man) (0.0 - 0.1 x10 3/uL) 0.00 0.00 Immature Plt Fraction (0.9 - 11.2 %) 6.5 Laboratory Tests 07/11 144 Chemistry Magnesium (1.80 - 2.40 mg/dL) 2.89 H 2.63 H 2.39 Radiology data:Recent Impressions:RADIOLOGY - XR CHEST 1 V 07/11 0554 Report Impression - Status: SIGNED Entered: 07/11/2022 1256 IMPRESSION: 1. Moderate enlarged cardiac silhouette. 2. Small bilateral pleural effusions. 3. Moderate to severe pulmonary edema versus infiltrates, pneumonia. Progression of opacities within right lower chest. 4. Degenerative and postsurgical changes are demonstrated, as described above. Impression By: [email or web address] - Manuel Vega M.D. Results: labs reviewed, vital signs reviewed, rhythm personally rev'dTelemetry Interpretation:sinus rhythm Diagnosis, Assessment PlanPlan discussed with: patient, nurse Free Text DxA P NotesFree Text DxA P Notes:Mr. Arce is a pleasant 81 y/o M w/ PMHx: HTN, HLD presented to [facility] on 06/28/22 for chest pain and sob. He was diagnosed NSTEMI w/ [...] and diffuse 50-60% dRCA. He transferred to [facility] for CABG. 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 On statins, BB, ASA, plavix- as tolerated Echo: LVEF 30-34%, CXR 2/2 small left apical pneumothorax, chest tube in place Postop care per CTS - Acute Systolic HF with ischemic CMP LVEF 30-34% strict I/Os, daily weights, fluid restriction, low NA diet diuresis as needed per Nephrology no charly/arb/aldactone due to CLAUDETTE Iniriate GDMT as tolerated, when of pressors persistent hypotension - on vaso and low dose Dopamine repeat echocardiogram - CLAUDETTE. HD Per nephro. likely from obstructive uropathy. s/p waters cath. Renal ultrasound showed severe thickening of the bladder, cholelitiasis. - HTN. hypotension post-op on vasopressin and low dose Dopamine - HLD. On statins. - Anemia. monitor at 1445 at 0859 RPT #:[id number] OF REPORTPRProgress [id number]:32:[id number] Available for patient [id number] [facility] 2022-07-11 11:16:00 [id number]:16:00 [facility] ([facility])Cardiothoracic Surgery ProgREPORT#:[id number] REPORT STATUS: SignedDATE:07/11/22 TIME: 1116 PATIENT: SHERRI ARCE UNIT #: [id number]#: [id number] [address] [birth year] AGE: 81 SEX: M ATTEND: Sarbjit Mcarthur MDA AUTHOR: Gianna Hoover * ALL edits or amendments must be made on the electronic/computer document * GeneralPost-op: day 3Status post:07/08/22 CABG x 5 (MISTRY-LAD, SVG-Ladonna, SVG-OM1< SVG-OM3, SVG-PDA) ALAA EVH (RGSV) SubjectiveChief complaint:Chest PainPre CABG evals/p CABGno complaints Review of SystemsConstitutional:Denies: chills, fever, malaise. Allergy/Immun:Denies: allergic reaction. Respiratory:Denies: SOB. Cardiovascular:Denies: chest pain, palpitations. GI:Denies: abdominal pain, nausea, vomiting. :Denies: dysuria, hematuria. Heme:Denies: bleeding. Neuro:Denies: dizziness, headache, vision change. All systems rev neg: except as marked Objective GeneralVS/I OLast Documented: Result Date Time O2 Delivery Nasal cannula 07/11 0800 O2 Flow Rate 5 07/11 0800 Pulse Ox 94 07/11 0746 B/P 128/44 07/11 0556 B/P Mean 62 07/11 0556 Temp 99.3 07/11 0556 Pulse 87 07/11 0556 Resp 30 07/11 0556 FiO2 50 07/08 1918 24 hour I [...] scale Measurement Method PATIENT WEIGHT: Weight (lb): 202Weight (oz): 13.2Weight (kg): 92.000 Dietitian Nutrition assessmentThe data set between the solid lines has been imported from the dietitian's assessment. BMI Calculated: 27.5Nutrition related diagnosis: Nutrition diagnosis details: Nutrition problem: Increased nutrient needsNutrition etiology: Chronic diseaseNutrition signs and symptoms: ESTIMATED NEEDS S/P CABGNutrition prescription: 1. RECOMMEND CONTIUE CARDIAC DIET, MONITOR LABS WITH [facility] DIALYS[facility]. 2. CONTINUE NEPRO BID. 3. DIET EDUCATION PRIOR TO DISCHARGE. 4. MONITOR PO, WT, LABS, BM.Dietitian name: Trang Rodriguez, DIETAssessment completed: 07/10/22 Physical ExamGeneral appearance: alert, awake, orientedWound/incision: Location:sternal Site condition: dressing clean dry, dressing intactHEENT: anicteric, mucosal membranes moistNeck: supple/no meningismusCardiovascular: normal heart sounds, regular rate rhythmRespiratory: aerating well, symmetric expansion, no distressAbdomen: soft, non-tender, no distentionGenitourinary: waters, oN hd Extremities: moves allNeuro/GIFT OFFICER: alert, oriented X 3, normal speech, no motor deficitsPsychiatry: normal affect, normal mood Current MedicationsMedications:Active Meds + DC'd Last 24 HrsIpratropium [place] (ATROVENT) 500 MCG RTQ2H PRN PRN INH Cyanocobalamin (Vitamin B-12 500 mcg tab) 500 MCG DAILY PO Ferrous Sulfate (FERROUS SULFATE) 325 MG DAILY PO Calcium Gluconate/Sodium Chloride (Calcium Gluconate 1 GM/NS 50 mL) 50 ML ONCE ONE IV (DC) Dopamine HCl/Dextrose (DOPamine 400MG/D5W 250ML) 250 ML ASDIR IV Bisacodyl (DULCOLAX) 10 MG ONCE PRN RECTAL Magnesium Hydroxide (MILK OF MAGNESIA) 30 ML ONCE PRN PO (DC) Insulin Human Lispro (HUMALOG) 0 AC HS SUBQ Atorvastatin Calcium (LIPITOR) 40 MG 2100 PO Clopidogrel Bisulfate (Plavix) 75 MG DAILY PO Polyethylene Glycol (MIRALAX) 17 GM DAILY PO Miscellaneous Information (PHARMACY TO DOSE/EVALUATE) 1 EACH ASDIR MISC Calcium Chloride (CALCIUM CHLORIDE) 1 GM ASDIR PRN IV Sodium Chloride (SODIUM CHLORIDE 0.9%) 100 MLCalcium Chloride (CALCIUM CHLORIDE) 2 GM ASDIR PRN IV Sodium Chloride (SODIUM CHLORIDE 0.9%) 100 MLMagnesium Sulfate (MAGNESIUM SULFATE 4GM/SWFI 100ML) 100 ML ASDIR PRN IV Magnesium Sulfate (MAGNESIUM SULFATE 2GM/SWFI 50ML) 50 ML ASDIR PRN IV Miscellaneous (PRISMASATE BGK 4/2.5 SOLUTION) 5,000 ML ASDIR DIALYSIS Potassium Chloride (KCL 10MEQ/SWFI 50ML) 50 ML ASDIR PRN IV Sodium Chloride (SODIUM CHLORIDE 0.9%) 2,000 ML ASDIR PRN IV Sodium Phosphate (SODIUM PHOSPHATE) 25 MMOL ASDIR PRN IV Sodium Chloride (SODIUM CHLORIDE 0.9%) 250 MLSodium Phosphate (SODIUM PHOSPHATE) 20 MMOL ASDIR PRN IV Sodium Chloride (SODIUM CHLORIDE 0.9%) 250 MLSodium Phosphate (SODIUM PHOSPHATE) 15 MMOL ASDIR PRN IV Sodium Chloride (SODIUM CHLORIDE 0.9%) 250 MLPantoprazole (PROTONIX) 40 MG DAILY@0600 PO Aspirin (ASPIRIN) [...] (Senna Lax 8.6 MG TABLET) 17.2 MG BEDTIME PO Ipratropium [place] (ATROVENT) 500 MCG RTQ4H INH Acetaminophen (TYLENOL) 650 MG Q4H PRN PRN PO Acetaminophen (TYLENOL) 650 MG Q4H PRN PRN RECTAL Calcium Chloride (CALCIUM CHLORIDE) 1 GM ASDIR PRN IV Dextrose/Water (DEXTROSE 10% IN WATER) 125 ML ASDIR PRN IV (CKD) Dextrose/Water (DEXTROSE 10% IN WATER) 250 ML ASDIR PRN IV (CKD) Epinephrine (ADRENALIN CHLORIDE) 4 MG ASDIR IV Dextrose/Water (DEXTROSE 5% WATER) 246 MLGlucagon (GLUCAGON) 1 MG ASDIR PRN IM Magnesium Sulfate (MAGNESIUM SULFATE 4GM/SWFI 100ML) 100 ML ASDIR PRN IV Magnesium Sulfate (MAGNESIUM SULFATE 2GM/SWFI 50ML) 50 ML ASDIR PRN IV Magnesium Sulfate/Dextrose (MAGNESIUM SULFATE 1GM/D5W 100ML) 100 ML ASDIR PRN IV Nitroglycerin/Dextrose (NITROGLYCERIN 50,000MCG/D5W 250ML) 250 ML ASDIR IV Norepinephrine Bitartrate (NOREPINEPHRINE 8 MG/NS 250 ML) 250 ML TITRATE IV Ondansetron HCl (ZOFRAN) 4 MG Q6H PRN PRN IV Oxycodone HCl (ROXICODONE) 5 MG Q4H PRN PRN PO Oxycodone HCl (ROXICODONE) 10 MG Q4H PRN PRN PO Potassium Chloride (KCL 20MEQ/SWFI 100ML) 100 ML ASDIR PRN IV Sodium Bicarbonate (SODIUM BICARBONATE) 50 MEQ ASDIR PRN IV Sodium Chloride (SODIUM CHLORIDE 0.9%) 1,000 ML .Q20H IV Sodium Chloride (SODIUM CHLORIDE 0.9%) 250 ML Q24H IV Albumin Human (ALBUMINAR-25%) 12.5 GM ASDIR PRN IV Heparin Sodium (Porcine) (HEPARIN SODIUM) 3,000 UNIT ASDIR PRN DIALYSIS Lidocaine HCl (LIDOCAINE HCL/PF) 0.5 ML ASDIR PRN I-DERMAL (CKD) Mannitol (Mannitol 20%) 12.5 GM ASDIR PRN IV Sodium Chloride (SODIUM CHLORIDE 0.9%) 2,000 ML ASDIR PRN IV Tamsulosin HCl (Flomax 0.4 mg) 0.4 MG BEDTIME PO ResultsFindings/Data:Laboratory Tests 07/11 07/11 07/11 0066 6214 0226 Blood Gas Puncture Site Art Line [place] Art Line O2 Saturation (90 - [...] (F) 98.8 O2 Delivery Device Cannula HFNC HFTN Laboratory Tests 07/11 07/11 07/11 07/11 07/11 0948 0743 0430 0229 0229Chemistry Sodium (134 - 147 mEq/L) 136 Potassium [...] (3.4 - 5.0 g/dL) 3.30 L 07/11 162 1445 1156Chemistry Sodium (134 - 147 mEq/L) 137 136 [...] mg/dL) 2.63 H 2.39 Laboratory Tests 07/11 07/10 0229 1445 Hematology [...] - 32.0 %) 4.2 L 3.2 L Starke % (Auto) (4.8 - 9.0 %) 7.5 5.4 Eos % (Auto) (0.3 - 3.7 %) 0.8 0.4 Baso % (Auto) (0.0 - 2.0 %) 0.3 0.2 Neut # (Auto) (2.0 - 7.6 x10 3/uL) 19.22 H 22.14 H Lymph # (Auto) (1.0 - 3.8 x10 3/uL) 0.93 L 0.79 L Starke # (Auto) (0.1 - 0.8 x10 3/uL) 1.66 H 1.32 H Eos # (Auto) (0.0 - 0.2 x10 3/uL) 0.17 0.09 Baso # (Auto) (0.0 - 0.2 x10 3/uL) 0.06 0.06 Abs Immat Gran (auto) (0.00 - 0.03 x10 3/uL) 0.19 H 0.26 H Add Manual Diff NO NO Immature Gran % (0.0 - 2.0 %) 0.9 1.1 Nucleated RBC % (0 - 0 %) 0.0 0.0 Nucleated RBCs # (Man) (0.0 - 0.1 x10 3/uL) 0.00 0.00 Immature Plt Fraction (0.9 - 11.2 %) 6.5 Results: labs reviewed, vital signs stable, EKG personnaly reviewed, rythm personally rev'd, x-ray personally reviewed, current med profile rev'd Quality: Trauma Gen Surg Advanced Care Plan 65 or OlderDiscussed with: patientDiscussion included: living will (none), power of school commissioner (none), code status (full code) VTE Prophylaxis - GeneralVTE prophylaxis initiated: yes Diagnosis, Assessment PlanHospital course to date:This is a 81-year-old gentleman who presented to an outside hospital with complaints of chest pains while walking at his home on Thursday. He denies any previous history of coronary artery disease or other [place]. He was seen and evaluated at [facility]. He was found to have a urinary tract infection with urinary retention and acute kidney. He was started on dialysis via a left femoral temporary catheter. He underwent dialysis on Thursday, Thursday. Renal has been consultedDuring his work-up at outside hospital he underwent Left heart catheterization showing severe Left Main 70%. LAD: Proximal diffuse 80% stenosis and then diffuse 60% in the midsegment and on the distal segment, there is focal 70% stenosis. Diagonal branches with luminal irregularities. Left circumflex, codominant circulation with proximal 80%, mid 80 to 90% and then in the OM, there is proximal 60%, distal left circumflex has a 70% stenosis. RCA large and dominant with proximal 40% stenosis, mid 60% stenosis and then diffuse 50% stenosis all the way distally and the PLV and the PDA with luminal irregularities. CV surgery consulted for evaluation for coronary bypass graft. CAROTIDS- No carotid stenosis CT chest complete IMPRESSION: Small bilateral pleural effusions with bibasilar atelectasis. Echo:1. Left ventricle: The cavity size is at the upper limits of normal. Wall thickness is mildly increased. Systolic function is severely reduced. The estimated ejection fraction is 30-34%. Moderate hypokinesis of the entire myocardium. Doppler parameters are consistent with abnormal left ventricular relaxation (grade 1 diastolic dysfunction).2. Pericardium, extracardiac: A small pericardial effusion is identified along the left ventricular free wall, along the right ventricular free wall, and along the right atrial free wall. Assessment/Plan1) CAD Mutlivessel Will obtain echo,carotids. 2) CLAUDETTE Started dialysis on Creatine 7.3 Renal consulted. 3) BPH- Urinary retention. Waters in place Workup for CABG underway. Will get functional assessment with PT. PFT pending Carotid dopplers- No disease Echo PendingDialyiss per Renal. Baseline Cr unknown. 07/04 07/04 Doing well today, alert, up in the chair. Denies chest painEchocardiogram showed LVEF 30 to 34%, mild MR, trivial TRCT chest images reviewedEncourage I-S and mobilizationCreatinine 5.5 from 7.3, good urine output. Renal US showed bilateral severe hydronephrosis. Plan for HD today and tomorrow Will tentatively schedule patient for surgery on Thursday.Patient seen and plan reviewed with Dr Schwarz 07/05 Remains in a stable condition, denies chest pain BUN 53, creatinine 5.4. Plan for hemodialysis today and tomorrow for clearanceHe is also on Lasix 20 mg IV twice daily, urine output 1.1 L overnightWe will calculate risk of surgery with STS scoreEncourage I-S and mobilizationWill tentatively schedule patient for surgery on Thursday.Pt seen and plan reviewed with Dr Schwarz 07/06 BUN 36, creatinine 4.4. Plan for hemodialysis todayAwaiting CABG tomorrowSurgery, risks involved, STS score, benefits, complications and alternatives were explained to the patient. He acknowledged understanding and is willing to proceedN.p.o. after midnightPatient seen and plan reviewed with Dr. Schwarz 07/09/22POD 1CABG x 5 (MISTRY-LAD, SVG-Ladonna, SVG-OM1< SVG-OM3, SVG-PDA), ALAA, RC (RGSV)Patient hemodynamically unstable, on epi at 4, and vaso .04, decreased uop overnight- 150ccStarted patient on CRRT 2k/3.5Wean epi as tolerated, Cardiac incex 2.8-3labs and chest x-ray reviewed, electrolytes stable, hgb 6.5- transfuse 2 units PRBCOn 4l nasal cannula- encourage incentive spirometer and deep breathingKeep both chest tubes and monitor outputsGlycemic control on insulin dripCardiac dietBowel regimen protocolPain managementSCDs for DVT and PPI for GI prophylaxisPT/OTMonitor patient closely in CVICUPlan of care discussed with Dr. Schwarz 07/10/22POD 2Patient alert, awake, and oriented, no distres notedlabs and CXR reviewed stableBreathing comfortably on 3l nasal cannula- wean as tolerated to melissa O2 sats > 92%Encourage I-S use and deep breathingOn CRRT- able to remove 2.9L overnight- nephrology followingCardiac index 3.1- wean off epi dripKeep chest tubes for now and monitor outputsTransition to sliding scale insulin- cardiac dietTry to get patient out of bed to chair today- ambulate with PT/OTSCDs for DVT prophylaxisKeep patient in CVICU for close monitoring 07/11/22POD 3Patient in stable condition, overnight events noted- decreased urine output 35 ml last night-started on dopamine gtt for renal perfusionCardiac index 3.5- epi currently at 2- will discontinue today, vasopressin at 0.02, added low dose midodrine 2.5 mg TID, repeat echocardiogram.Renal Following- trial LasixPatient has Left femoral temp dialysis cath, Will need tunneled dialysis IJ cathplaced if need dialysis. On 5l nasal cannula- wean off as tolerated, encourage incentive spirometer and deep breathingKeep left pleural chest tube and monitor output- > 200 cc Tolerating diet, bowel regimen protocolPT/OT- patient out of bed to chair today- encourage ambulationDVT prophylaxis with SCDsMonitor patient closely in CVICUPlan discussed with multidisciplinary teamPlan discussed with Dr Schwarz/ Dr Rodríguze Consultants: cardiology, cardiovascular surgery, nephrology at 1625 at 1950 RPT #:[id number] OF REPORTPRProgress [id number]:16:[id number] Available for patient [id number]:26:07 [facility] 2022-07-11 10:54:00 [id number]:54:00 [facility] ([facility])Hospitalist Progress NoteREPORT#:[id number] REPORT STATUS: SignedDATE:07/11/22 TIME: 1054 PATIENT: SHERRI ARCE UNIT #: [id number]#: [id number] [address] [birth year] AGE: 81 SEX: M ATTEND: Radha Ward [facility] AUTHOR: Radha Ward MD * ALL edits or amendments must be made on the electronic/computer document * SubjectiveChief complaint:Status post CABG x5 on 07/09, 1 chest tube out, 1 chest tube in, off pressors, CRRT versus hemodialysis as per nephrology, we have consulted. Worked with PT in his room. No pain as reported by patient.HPI:81 y/o man with PMHx of HTN, Dyslipidemia that [facility] with chest pain and found to have a NSTEMI and also acute renal failure. Underwent cardiac cath yesterday and found to have severe CAD including left main disease. Transfer here for CABG evaluation. He also underwent HD Thursday and Thursday of this week. HD catheter was place at [facility]. Currently not having any chest pain. Had chest pain with SOB when he presentted to the previous hospital. Objective GeneralVS/I O:Vital Signs: Date Time Temp Pulse Resp B/P B/P Pulse O2 O2 Flow FiO2 Mean Ox Delivery Rate 07/11 0800 Nasal 5 cannula 07/11 0746 94 Nasal 5 cannula 07/11 0556 99.3 87 30 128/44 62 95 /03 0530 99.3 88 121/41 59 93 02/03 [...] 02/02 1715 75 43 58/15 31 89 07/10 1700 74 28 75/37 47 95 07/10 1645 82 33 78/28 44 91 07/10 1630 80 32 81/49 60 95 07/10 1615 81 43 106/29 47 96 24 [...] scale Measurement Method PATIENT WEIGHT: Weight (lb): 202Weight (oz): 13.2Weight (kg): 92.000 Medications:Active Meds + DC'd Last 24 HrsIpratropium [place] (ATROVENT) 500 MCG RTQ2H PRN PRN INH Albumin Human (ALBUMINAR 5% 12.5GM/250ML) 250 ML ONCE ONE IV Furosemide (LASIX 40 mg/4 mL INJECTION) 80 MG ONCE ONE IV (DC) Midodrine (PROAMATINE) 2.5 MG 0900,1300,1700 PO Furosemide (LASIX 40 mg/4 mL INJECTION) 60 MG ONCE ONE IV (DC) Lactulose (LACTULOSE) 20 GM DAILY PRN PRN PO Cyanocobalamin (Vitamin B-12 500 mcg tab) 500 MCG DAILY PO Ferrous Sulfate (FERROUS SULFATE) 325 MG DAILY PO Calcium Gluconate/Sodium Chloride (Calcium Gluconate 1 GM/NS 50 mL) 50 ML ONCE ONE IV (DC) Dopamine HCl/Dextrose (DOPamine 400MG/D5W 250ML) 250 ML ASDIR IV Bisacodyl (DULCOLAX) 10 MG ONCE PRN RECTAL Insulin Human Lispro (HUMALOG) 0 AC HS SUBQ (DC) Atorvastatin Calcium (LIPITOR) 40 MG 2100 PO Clopidogrel Bisulfate (Plavix) 75 MG DAILY PO Polyethylene Glycol (MIRALAX) 17 GM DAILY PO Miscellaneous Information (PHARMACY TO DOSE/EVALUATE) 1 EACH ASDIR MISC Calcium Chloride (CALCIUM CHLORIDE) 1 GM ASDIR PRN IV Sodium Chloride (SODIUM CHLORIDE 0.9%) 100 MLCalcium Chloride (CALCIUM CHLORIDE) 2 GM ASDIR PRN IV Sodium Chloride (SODIUM CHLORIDE 0.9%) 100 MLMagnesium Sulfate (MAGNESIUM SULFATE 4GM/SWFI 100ML) 100 ML ASDIR PRN IV Magnesium Sulfate (MAGNESIUM SULFATE 2GM/SWFI 50ML) 50 ML ASDIR PRN IV Miscellaneous (PRISMASATE BGK 4/2.5 SOLUTION) 5,000 ML ASDIR DIALYSIS Potassium Chloride (KCL 10MEQ/SWFI 50ML) 50 ML ASDIR PRN IV Sodium Chloride (SODIUM CHLORIDE 0.9%) 2,000 ML ASDIR PRN IV Sodium Phosphate (SODIUM PHOSPHATE) 25 MMOL ASDIR PRN IV Sodium Chloride (SODIUM CHLORIDE 0.9%) 250 MLSodium Phosphate (SODIUM PHOSPHATE) 20 MMOL ASDIR PRN IV Sodium Chloride (SODIUM CHLORIDE 0.9%) 250 MLSodium Phosphate (SODIUM PHOSPHATE) 15 MMOL ASDIR PRN IV Sodium Chloride (SODIUM CHLORIDE 0.9%) 250 MLPantoprazole (PROTONIX) 40 MG DAILY@0600 PO Aspirin (ASPIRIN) [...] (Senna Lax 8.6 MG TABLET) 17.2 MG BEDTIME PO Ipratropium [place] (ATROVENT) 500 MCG RTQ4H INH Acetaminophen (TYLENOL) 650 MG Q4H PRN PRN PO Acetaminophen (TYLENOL) 650 MG Q4H PRN PRN RECTAL Calcium Chloride (CALCIUM CHLORIDE) 1 GM ASDIR PRN IV Dextrose/Water (DEXTROSE 10% IN WATER) 125 ML ASDIR PRN IV (CKD) Dextrose/Water (DEXTROSE 10% IN WATER) 250 ML ASDIR PRN IV (CKD) Epinephrine (ADRENALIN CHLORIDE) 4 MG ASDIR IV Dextrose/Water (DEXTROSE 5% WATER) 246 MLGlucagon (GLUCAGON) 1 MG ASDIR PRN IM Magnesium Sulfate (MAGNESIUM SULFATE 4GM/SWFI 100ML) 100 ML ASDIR PRN IV Magnesium Sulfate (MAGNESIUM SULFATE 2GM/SWFI 50ML) 50 ML ASDIR PRN IV Magnesium Sulfate/Dextrose (MAGNESIUM SULFATE 1GM/D5W 100ML) 100 ML ASDIR PRN IV Nitroglycerin/Dextrose (NITROGLYCERIN 50,000MCG/D5W 250ML) 250 ML ASDIR IV Norepinephrine Bitartrate (NOREPINEPHRINE 8 MG/NS 250 ML) 250 ML TITRATE IV Ondansetron HCl (ZOFRAN) 4 MG Q6H PRN PRN IV Oxycodone HCl (ROXICODONE) 5 MG Q4H PRN PRN PO Oxycodone HCl (ROXICODONE) 10 MG Q4H PRN PRN PO Potassium Chloride (KCL 20MEQ/SWFI 100ML) 100 ML ASDIR PRN IV Sodium Bicarbonate (SODIUM BICARBONATE) 50 MEQ ASDIR PRN IV Sodium Chloride (SODIUM CHLORIDE 0.9%) 1,000 ML .Q20H IV Sodium Chloride (SODIUM CHLORIDE 0.9%) 250 ML Q24H IV Albumin Human (ALBUMINAR-25%) 12.5 GM ASDIR PRN IV Heparin Sodium (Porcine) (HEPARIN SODIUM) 3,000 UNIT ASDIR PRN DIALYSIS Lidocaine HCl (LIDOCAINE HCL/PF) 0.5 ML ASDIR PRN I-DERMAL (CKD) Mannitol (Mannitol 20%) 12.5 GM ASDIR PRN IV Sodium Chloride (SODIUM CHLORIDE 0.9%) 2,000 ML ASDIR PRN IV Tamsulosin HCl (Flomax 0.4 mg) 0.4 MG BEDTIME PO Physical ExamGeneral appearance: alert, awake, orientedHead/Eyes: atraumatic, EOMI, normal conjunctiva/sclera, normocephalic, PERRLAENT: moist mucosal membranesNeck: full range of motion, no bruit/NL carotids, no JVDCardiovascular: normal heart sounds, regular rate rhythmRespiratory: aerating well, clear to auscultation, symmetric expansion, no distressAbdomen: non-tender, normal bowel sounds, soft, no distention, no guarding, no reboundExtremities: moves all, no cyanosis, no edemaMusculoskeletal: normal inspectionNeuro/GIFT OFFICER: alert, oriented X 3, normal speech, no motor deficits, no sensory deficitsSkin: intact, normal color, no rashPsychiatry: normal affect ResultsFindings/Data:Laboratory Tests 07/11 07/11 07/11 07/11 0471 5031 0430 0226Blood Gas Puncture Site Art Line Art Line [place] Art Line O2 Saturation (90 - 100 %) 95.2 93.9 91.8 ABG pH (7.35 - 7.45) 7.347 L 7.381 7.375 ABG pCO2 (35.0 - 45 mmHg) 37.9 36.5 40.6 ABG pO2 (80 - 100.0 mmHg) 80.5 71.5 L 64.8 L ABG HCO3 (22.0 - 26.0 MMOL/L) 20.8 L 21.7 L 23.8 ABG Total CO2 22.0 22.8 25.0 ABG Base Excess (-4.0 - 4.0 MMOL/L) -4.8 L -3.4 -1.4 ABG Hematocrit (37.5 - 50.7 %) 27 L 27 L 31 L 27 L ABG [...] Laboratory Tests 07/11 07/11 07/11 07/11 07/11 1557 1549 0975 0743 0430Chemistry Sodium (134 - 147 mEq/L) 132 L Potassium (3.4 - 5.0 mEq/L) 5.3 H Chloride (100 - 108 mEq/L) 102 Carbon Dioxide (21 - 33 mEq/l) 22 Anion Gap (0 - 20) 13 BUN (7 - 18 mg/dL) 44 H Creatinine (0.6 - 1.3 mg/dL) 3.8 H POC Creatinine (0.8 - 1.3 mg/dL) 3.8 H 3.6 H 3.6 H Glomerular Filtr Rate (70 - 80) 15.4 L Glucose (70 - 110 mg/dL) 156 H POC Glucose (70 - 110 MG/DL) 117 H POC Glucose (mg/dL) (70 - 110 MG/DL) 159 H 122 H 102 Calcium (8.0 - 10.5 mg/dL) 8.9 Ionized Calcium Tenzin (1.09 - 1.30 1.17MMOL/L) Phosphorus (2.5 - 4.9 MG/DL) 3.9 Magnesium [...] (3.4 - 5.0 g/dL) 3.30 L 07/10 1626 Chemistry POC Glucose (70 - 110 [...] (Auto) (14.0 - 32.0 %) 4.2 L Starke % (Auto) (4.8 - 9.0 %) 7.5 Eos % (Auto) (0.3 - 3.7 %) 0.8 Baso % (Auto) (0.0 - 2.0 %) 0.3 Neut # (Auto) (2.0 - 7.6 x10 3/uL) 19.22 H Lymph # (Auto) (1.0 - 3.8 x10 3/uL) 0.93 L Starke # (Auto) (0.1 - 0.8 x10 3/uL) 1.66 H Eos # (Auto) (0.0 - 0.2 x10 3/uL) 0.17 Baso # (Auto) (0.0 - 0.2 x10 3/uL) 0.06 Abs Immat Gran (auto) (0.00 - 0.03 x10 3/uL) 0.19 H Add Manual Diff NO Immature Gran % (0.0 - 2.0 %) 0.9 Nucleated RBC % (0 - 0 %) 0.0 Nucleated RBCs # (Man) (0.0 - 0.1 x10 3/uL) 0.00 Immature Plt Fraction (0.9 - 11.2 %) 6.5 Radiology data:Recent Impressions:RADIOLOGY - XR CHEST 1 V 07/11 0554 Report Impression - Status: SIGNED Entered: 07/11/2022 1255 IMPRESSION: 1. Moderate enlarged cardiac silhouette. 2. Small bilateral pleural effusions. 3. Moderate to severe pulmonary edema versus infiltrates, pneumonia. Progression of opacities within right lower chest. 4. Degenerative and postsurgical changes are demonstrated, as described above. Impression By: [email or web address] - Manuel Vega M.D. Diagnosis, Assessment PlanConsultants: cardiology, cardiovascular surgery, nephrology Free Text DxA P NotesFree text DxA P notes:Assessment and plans:CAD (coronary artery disease) patient presented with NSTEMI and found to hve severe CAD. Cardiac cath shows: Left Main - Distal 70% LAD - Proximal 80% with another 60% and 70% lessions Cir - Proximal 80%,mid 80-90%, Distal 70% and OM 60% RCA - large dominant with proximal 40%, Mid 60%. Cardiology and CV surgeon consulted echo: ef 30-34%, mod hypokinesis of entire myocardium, grade 1 diastolic dysfunction Carotid Dopplers negative PFTs PT/OT s/p CABG X5 on 07/08 Patient on ASA, plavix, BB and Statin on amiodarone Beta-tomas as tolerated for low BP, off pressors 2/3 Acute systolic heart failure Echocardiac with estimated LVEF of 30 to 34% with grade 1 diastolic dysfunction-s/p Lasix 20 mg twice daily 07/05 -on metoprolol 12.5 mg bid on hold now, BP low-no ACEI/ spironolactione for CLAUDETTE-Strict I's and O's, daily weights-Start GDMT prior to discharge CLAUDETTE (acute kidney injury) No prior Hx of renal disease. hx of BPH and treated with Fosamax w/o improvement nd continue to have difficulty urinating. On admission was found to be on acute renal filaure and had received HD twice prior to arrival here (thursday and thursday). Creatinine this am was 7.4, BUN 68 * Probably due to obstructive uropathy* waters already in place* Nephrology consuled for HD On daily hemodialysis as per nephrology CRRT versus hemodialysis as per nephrology Anemia:-Hemoglobin dropped to 6.5 s/p CABG 2 PRBC BT ordered 07/09 Monitor H H Leukocytosis:-Afebrile Monitor WBC count HTN (hypertension) patient on metoprolol 12.5 mg BID, will adjust as needed On labetalol/hydralazine as needed Dyslipidemia on Lipitor 40mg po daliy. BPH (benign prostatic hyperplasia) Started on Flomax at the previous hospital, will continue with it. Waters catheter in place, continue Waters catheter as per nephrology 07/05 Goiter Hx of Goiter and surgical resection. TSH 3.33, within normal limits. Patient is not on Thyroid medication. anemia of chronic kidney disease Hemoglobin 9.5, monitor Hypokalemia resolved UTI continue Rocephin for empiric treatment pending results of urine culture No growth for 48 hours DVT prophylaxis: Heparin 5000 units every 8 hoursDiet: Cardiac dietCODE STATUS: Full code Disposition: Status post CABG x5 on 07/09, 1 chest tube out, 1 chest tube in, off pressors, CRRT versus hemodialysis as per nephrology, we have consulted. Workedwith PT in his room, on 2 L oxygen via nasal cannula. PT/OT on board. Rehab consulted. Continue CVICU care. Quality: Gen Med Crit Care VTE ProphylaxisVTE prophylaxis initiated: yes Current MedicationsCurrent medication review:I attest that the foregoing medication list in the medical record is true, accurate, and complete to the best of my knowledge. Advanced Care Plan 65 or OlderDiscussed with: patientDiscussion included: living will (none), power of school commissioner (none), code status (full code) at 1613 RPT #:[id number] OF REPORTPRProgress [id number]:[id number] Available for patient [id number]:31 HCACL 2022-07-11 09:43:00 [id number]:00 [facility] ([facility])Adult General ConsultationREPORT#:[id number] REPORT STATUS: SignedDATE:07/11/22 TIME: 942 PATIENT: SHERRI ARCE UNIT #: [id number]#: [id number] [address] [birth year] AGE: 81 SEX: M ATTEND: Radha Ward [facility] AUTHOR: Magdaleno Washburn * ALL edits or amendments must be made on the electronic/computer document * History of Present IllnessReason for consult:PMR consultationChief complaint:Debility post CABGHPI:This is a 81-year-old gentleman who presented to an outside hospital with complaints of chest pains while walking at his home on Thursday. He denies any previous history of coronary artery disease or other [place]. He was seen and evaluated at [facility]. He was found to have a urinary tract infection with urinary retention and acute kidney. He was started on dialysis via a left femoral temporary catheter. He underwent dialysis on Thursday, Thursday. Renal has been consultedDuring his work-up at outside hospital he underwent Left heart catheterization showing severe Left Main 70%. LAD: Proximal diffuse 80% stenosis and then diffuse 60% in the midsegment and on the distal segment, there is focal 70% stenosis. Diagonal branches with luminal irregularities. Left circumflex, codominant circulation with proximal 80%, mid 80 to 90% and then in the OM, there is proximal 60%, distal left circumflex has a 70% stenosis. RCA large and dominant with proximal 40% stenosis, mid 60% stenosis and then diffuse 50% stenosis all the way distally and the PLV and the PDA with luminal irregularities. CV surgery was consulted and patient had CABG x5. Postop patient with some renal and hemodynamic issues requiring multiple drips. He is still on several drips including dopamine and epinephrine. Patient still has 1 Keshav drain. We have been asked to see him in consultation for physical medicine and rehabilitation evaluation History - Adult longitudinalPast medical history:Reports: Hypertension, Dyslipidemia. Additional surgical history:DeniesFamily history:Reports: Heart disease (parents and sibbling.). 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)Drug use: Denies recreational drugsSmoking status for patients 13 years old or older: Former Smoker (quit 20 years ago)Medications:Home Medications:Medication Dose/Rte/Freq Days Qty Entered Last Max Daily Dose Reviewed ASPIRIN 81 MG PO DAILY 07/02/22Strength: 81 MG TAB.CHEW 2022 TAMSULOSIN ER (FLOMAX) 0.4 MG PO BEDTIME 07/02/22Strength: 0.4 MG CAP.SR.24H 2024 ATORVASTATIN (LIPITOR) 20 MG PO DAILY 07/02/22Strength: 20 MG TAB 2025 METOPROLOL TARTRATE 12.5 MG PO BID 07/02/22 (LOPRESSOR) 2026Strength: 25 MG TAB cefTRIAXone (ROCEPHIN) 1 GM IV Q24H 07/02/22Strength: 1 GRAM/50 ML 2030PIGGYBACK VANCOMYCIN/D5W 1 GM IV 07/02/22 (VANCOCIN/D5W) DIALYSIS-DOSE trength: 1 GRAM/250 ML DURINGPIGGYBACK ACETAMINOPHEN (TYLENOL) 650 MG PO 07/02/22rength: 325 MG TAB Q6H PRN PRN PAIN 2033 SCALE 1-3/TEMP ABOVE 100F ONDANSETRON 4 MG IV 07/02/22rength: 4 MG/2 ML VIAL Q6H PRN PRN NAUSEA 2034 AND VOMITING Current Hospital Medications:Autonomic Drugs Sig/Earl Start time Last Medication Dose Route Stop Time Status Admin Ipratropium [place] 500 MCG RTQ2H PRN PRN 07/11 1821 AC 07/10 (ATROVENT) INH 08/10 1820 1302 Dopamine HCl/Dextrose 250 ML ASDIR 07/10 2100 AC 07/10 (DOPamine 400MG/D5W IV 08/09 2058 2113 250ML) Ipratropium [place] 500 MCG RTQ4H 07/08 1900 AC 07/11 (ATROVENT) INH 08/07 1859 0744 Epinephrine 4 MG ASDIR 07/08 1830 AC 07/10 (ADRENALIN CHLORIDE) IV 08/07 1829 1201 Dextrose/Water 246 ML (DEXTROSE 5% WATER) Norepinephrine 250 ML TITRATE 07/08 1830 AC Bitartrate IV 08/07 1829 (NOREPINEPHRINE 8 MG/ NS 250 ML) Tamsulosin HCl 0.4 MG BEDTIME 07/02 2144 AC 07/10 (Flomax 0.4 mg) PO 08/01 2143 203 Blood Derivatives Sig/Earl Start time Last Medication Dose Route Stop Time Status Admin Albumin Human 12.5 GM ASDIR PRN 07/03 1200 AC 07/10 (ALBUMINAR-25%) IV 08/03 1155 1327 Blood Formation,Coagulation Sig/Earl Start time Last Medication Dose Route Stop Time Status Admin Ferrous Sulfate 325 MG DAILY 07/11 899 AC (FERROUS SULFATE) PO 08/10 0859 Clopidogrel Bisulfate 75 MG DAILY 07/09 09 AC 07/11 (Plavix) PO 08/08 0859 0928 Heparin Sodium 3,000 UNIT ASDIR PRN 07/03 1200 AC 07/11 (Porcine) DIALYSIS 08/02 115 0521 (HEPARIN SODIUM) Cardiovascular Drugs Sig/Earl Start time Last Medication Dose Route Stop Time Status Admin Atorvastatin Calcium 40 MG 2100 07/09 2099 AC 07/10 (LIPITOR) PO 08/08 Amiodarone HCl 200 MG TID 07/08 2099 AC 07/11 (CORDARONE) PO 08/07 Metoprolol Tartrate 12.5 MG Q12HR 07/08 2099 AC (LOPRESSOR) PO 08/07 2058 Nitroglycerin/ 250 ML ASDIR 07/08 1830 AC Dextrose IV 08/07 182 (NITROGLYCERIN 50,000MCG/D5W 250ML) Lidocaine HCl 0.5 ML ASDIR PRN 07/03 1200 CKD (LIDOCAINE HCL/PF) I-DERMAL 08/03 1155 Central Nervous System Agents Sig/Earl Start time Last Medication Dose Route Stop Time Status Admin Magnesium Sulfate 100 ML ASDIR PRN 07/09 07 AC (MAGNESIUM SULFATE IV 08/08 0659 4GM/SWFI 100ML) Magnesium Sulfate 50 ML ASDIR PRN 07/09 07 AC (MAGNESIUM SULFATE IV 08/08 0659 2GM/SWFI 50ML) Aspirin 81 MG DAILY 07/09 0020 AC 07/11 (ASPIRIN) PO 08/08 001 0927 Gabapentin 200 MG BID 07/08 2100 AC 07/11 (NEURONTIN) PO 07/13 0901 0928 Acetaminophen 650 MG Q4H PRN PRN 07/08 1830 AC 07/10 (TYLENOL) PO 08/07 1829 1731 Acetaminophen 650 MG Q4H PRN PRN 07/08 1830 AC (TYLENOL) RECTAL 08/07 182 Magnesium Sulfate 100 ML ASDIR PRN 07/08 1830 AC (MAGNESIUM SULFATE IV 08/07 1829 4GM/SWFI 100ML) Magnesium Sulfate 50 ML ASDIR PRN 07/08 183 AC (MAGNESIUM SULFATE IV 08/07 1829 2GM/SWFI 50ML) Magnesium Sulfate/ 100 ML ASDIR PRN 07/08 1830 AC 07/10 Dextrose IV 08/07 1829 1731 (MAGNESIUM SULFATE 1GM/D5W 100ML) Oxycodone HCl 5 MG Q4H PRN PRN 07/08 183 AC 07/09 (ROXICODONE) PO 07/13 1829 1500 Oxycodone HCl 10 MG Q4H PRN PRN 07/08 183 AC 07/10 (ROXICODONE) PO 07/13 1829 0410 Devices Sig/Earl Start time Last Medication Dose Route Stop Time Status Admin Miscellaneous 5,000 ML ASDIR 07/09 07 AC (PRISMASATE BGK 4/ DIALYSIS 08/08 0659 2.5 SOLUTION) Electrolytic, Caloric, And Gerhard Sig/Earl Start time Last Medication Dose Route Stop Time Status Admin Calcium Gluconate/ 50 ML ONCE ONE 07/10 2300 DC 07/10 Sodium Chloride IV 07/10 2309 2255 (Calcium Gluconate 1 GM/NS 50 mL) Calcium Chloride 1 GM ASDIR PRN 07/09 0700 AC (CALCIUM CHLORIDE) IV 08/08 0659 Sodium Chloride 100 ML (SODIUM CHLORIDE 0.9%) Calcium Chloride 2 GM ASDIR PRN 07/09 0700 AC (CALCIUM CHLORIDE) IV 08/08 0659 Sodium Chloride 100 ML (SODIUM CHLORIDE 0.9%) Potassium Chloride 50 ML ASDIR PRN 07/09 07 AC (KCL 10MEQ/SWFI 50ML) IV 08/08 0659 Sodium Chloride 2,000 ML ASDIR PRN 07/09 0700 AC (SODIUM CHLORIDE IV 08/08 0659 0.9%) Sodium Phosphate 25 MMOL ASDIR PRN 07/09 0700 AC (SODIUM PHOSPHATE) IV 08/08 0659 Sodium Chloride 250 ML (SODIUM CHLORIDE 0.9%) Sodium Phosphate 20 MMOL ASDIR PRN 07/09 0700 AC (SODIUM PHOSPHATE) IV 08/08 0659 Sodium Chloride 250 ML (SODIUM CHLORIDE 0.9%) Sodium Phosphate 15 MMOL ASDIR PRN 07/09 0700 AC (SODIUM PHOSPHATE) IV 08/08 0659 Sodium Chloride 250 ML (SODIUM CHLORIDE 0.9%) Calcium Chloride 1 GM ASDIR PRN 07/08 1830 AC 07/08 (CALCIUM CHLORIDE) IV 08/07 182 2027 Dextrose/Water 125 ML ASDIR PRN 07/08 1830 CKD (DEXTROSE 10% IN IV 08/07 182 WATER) Dextrose/Water 250 ML ASDIR PRN 07/08 [...] 2,000 ML ASDIR PRN 07/03 1200 AC 07/07 (SODIUM CHLORIDE IV 08/03 1155 1813 0.9%) Gastrointestinal Drugs Sig/Earl Start time Last Medication Dose Route Stop Time Status Admin Bisacodyl 10 MG ONCE PRN 07/10 1200 AC 07/11 (DULCOLAX) RECTAL 08/09 115 0928 Magnesium Hydroxide 30 ML ONCE PRN 07/10 1200 DC 07/10 (MILK OF MAGNESIA) PO 1405 Polyethylene Glycol 17 GM DAILY 07/09 09 AC 07/11 (MIRALAX) PO 08/08 08 09 Pantoprazole 40 MG DAILY@00 07/09 0600 AC 07/11 (PROTONIX) PO 08/08 0559 0506 Docusate Sodium 100 MG BID 07/08 2099 AC 07/11 (COLACE) PO 08/07 Sennosides 17.2 MG BEDTIME 07/08 2100 AC 07/10 (Senna Lax 8.6 MG PO 08/07 TABLET) Ondansetron HCl 4 MG Q6H PRN PRN 07/08 183 AC (ZOFRAN) IV 08/07 182 Hormones And Synthetic Substit Sig/Ealr Start time Last Medication Dose Route Stop Time Status Admin Insulin Human Lispro 0 AC HS 07/10 1130 AC (HUMALOG) SUBQ 08/09 1129 Vasopressin 100 ML ASDIR 07/09 0015 CKD 07/09 (VASOSTRICT 20 Unit/ IV 08/08 001 2139 NS 100ML) Glucagon 1 MG ASDIR PRN 07/08 1830 AC (GLUCAGON) IM 08/07 182 Skin And Mucous Membrane Agent Sig/Earl Start time Last Medication Dose Route Stop Time Status Admin Mupirocin 1 APPLIC BID 07/08 2100 AC 07/11 (BACTROBAN 2% 22 GM NASAL 07/13 0901 0929 OINTMENT) Vitamins Sig/Earl Start time Last Medication Dose Route Stop Time Status Admin Cyanocobalamin 500 MCG DAILY 07/11 0900 AC (Vitamin B-12 500 PO 08/10 0859 mcg tab) Other Sig/Earl Start time Last Medication Dose Route Stop Time Status Admin Miscellaneous 1 EACH ASDIR 07/09 0730 AC Information MISC 08/08 0729 (PHARMACY TO DOSE/ EVALUATE) Allergies:Coded Allergies:No Known Allergies (07/02/22) Review of SystemsConstitutional:fatigue, generalized weakness. Musculoskeletal:thoracic pain. All systems rev neg: except as marked ObjectiveVS/I O:Last Documented: Result Date Time O2 Delivery Nasal cannula 07/11 08 O2 Flow Rate 5 07/11 0800 Pulse Ox 94 07/11 0746 B/P 128/44 07/11 0556 B/P Mean 62 07/11 0556 Temp 99.3 07/11 0556 Pulse 87 07/11 0556 Resp 30 07/11 0556 FiO2 50 07/08 1918 24 hour I [...] scale Measurement Method PATIENT WEIGHT: Weight (lb): 202Weight (oz): 13.2Weight (kg): 92.000 General appearance: alert, awakeHead/Eyes: atraumatic, clear cornea, EOMIENT: normal dentition, normal ear left, normal ear rightNeck: full range of motion, non-tender, no lymphadenopathyCardiovascular: normal capillary refill, pedal pulses present, normal heart soundsRespiratory: decreased breath sounds, clear to auscultation, no distressAbdomen: soft, non-tender, no guarding, no reboundGenitourinary: not indicatedExtremities: no clubbing, no cyanosisMusculoskeletal: full range of motion, normal inspection, painless range of motionNeuro/GIFT OFFICER: alert, oriented X 3, normal gaitSkin: intact, no rashLymphatics: no lymphadenopathyPsychiatry: normal affect, normal judgment/insight ResultsFindings/Data:Laboratory Tests: 07/11 07/11 07/11 07/11 0948 0743 0430 0229 Blood Gas Puncture Site Art Line [place] O2 Saturation (90 - 100 %) [...] (1.80 - 2.40 mg/dL) 2.89 H 07/11 1626Blood Gas Puncture Site Art Line O2 Saturation [...] 1.7 mmol/l) 0.5 L O2 Delivery Device HFNCChemistry Sodium (134 - 147 mEq/L) 136 137 [...] L Albumin (3.4 - 5.0 g/dL) 3.30 LHematology WBC (4.5 - 11.0 x10 3/uL) 22.2 [...] (Auto) (14.0 - 32.0 %) 4.2 L Starke % (Auto) (4.8 - 9.0 %) 7.5 Eos % (Auto) (0.3 - 3.7 %) 0.8 Baso % (Auto) (0.0 - 2.0 %) 0.3 Neut # (Auto) (2.0 - 7.6 x10 3/uL) 19.22 H Lymph # (Auto) (1.0 - 3.8 x10 3/uL) 0.93 L Starke # (Auto) (0.1 - 0.8 x10 3/uL) 1.66 H Eos # (Auto) (0.0 - 0.2 x10 3/uL) 0.17 Baso # (Auto) (0.0 - 0.2 x10 3/uL) 0.06 Abs Immat Gran (auto) (0.00 - 0.03 x10 3/uL) 0.19 H Add Manual Diff NO Immature Gran % (0.0 - 2.0 %) 0.9 Nucleated RBC % (0 - 0 %) 0.0 Nucleated RBCs # (Man) (0.0 - 0.1 x10 3/uL) 0.00 Immature Plt Fraction (0.9 - 11.2 [...] (Auto) (14.0 - 32.0 %) 3.2 L Starke % (Auto) (4.8 - 9.0 %) 5.4 Eos % (Auto) (0.3 - 3.7 %) 0.4 Baso % (Auto) (0.0 - 2.0 %) 0.2 Neut # (Auto) (2.0 - 7.6 x10 3/uL) 22.14 H Lymph # (Auto) (1.0 - 3.8 x10 3/uL) 0.79 L Starke # (Auto) (0.1 - 0.8 x10 3/uL) 1.32 H Eos # (Auto) (0.0 - 0.2 x10 3/uL) 0.09 Baso # (Auto) (0.0 - 0.2 x10 3/uL) 0.06 Abs Immat Gran (auto) (0.00 - 0.03 x10 3/uL) 0.26 H Add Manual Diff NO Immature Gran % (0.0 - 2.0 %) 1.1 Nucleated RBC % (0 - 0 %) 0.0 Nucleated RBCs # (Man) (0.0 - 0.1 x10 3/uL) 0.00 Diagnosis, Assessment PlanConsultants: cardiology, cardiovascular surgery, nephrology Free Text DxA P NotesFree Text DxA P Notes:Non-STEMIMultivessel CADS/p CABG q5Zyqnztfd deconditioningImpaired mobility and gaitPostoperative anemiaDyslipidemiaHypertensionAKIAcute systolic heart failureHemodynamic issues postop Plan:Continue PT/OTOut of bed to chairWork on strength, bed mobility, transfers, gaitSternal precautionIncrease enduranceFall precautionsMonitor p.o. intake and nutritionStrict decubitus precautionsAdvance therapies as toleratedWean pressors as toleratedNephrology managing renal issuesIRF consulted. Will require insurance approvalThank you for referral Quality: Gen Med Crit Care VTE ProphylaxisVTE prophylaxis initiated: yes Current MedicationsCurrent medication review:I attest that the foregoing medication list in the medical record is true, accurate, and complete to the best of my knowledge. at 0521 RPT #:[id number] OF [id number]:43:00G. [id number] for patient [id number]:22:03 HCACL 2022-07-11 06:02:00 [id number]:02:00 [facility] ([facility])Critical Care Progress NoteREPORT#:[id number] REPORT STATUS: SignedDATE:07/11/22 TIME: 06 PATIENT: SHERRI ARCE UNIT #: [id number]#: [id number] [address] [birth year] AGE: 81 SEX: M ATTEND: Sarbjit Mcarthur [facility] AUTHOR: Edwardo Flannery MD * ALL edits or amendments must be made on the electronic/computer document * SubjectiveChief complaint:CABGHPI:This is 81 years old male with medical history significant for HTN and dyslipidemia who presented to [facility] Thursday06/28/22 with chest pain and found to have a NSTEMI and also acute renal failure. He underwent cardiac cath and was found to have severe CAD including left main disease with EF of 30 to 35% and ischemic cardiomyopathy. Transfer here for CABG evaluation. CV surgery were consulted and the patient earlier today underwent CABG x 5 (MISTRY-LAD, SVG-Ladonna, SVG-OM1< SVG-OM3, SVG-PDA) and ALAA. His intraoperative course was without significant occurrence. The patient was brought to CVICU intubated and ventilated on milrinone drip, norepinephrine drip, epinephrine drip and vasopressin drip.His initial ABG showed metabolic acidosis and he received 2 A of sodium bicarb and 1 g of calcium.The patient started to wake up later in the evening but he looked weak, so he was reversed with neostigmine and glycopyrrolate. His motor strength improved significantly after that and his spontaneous breathing trial was good on the following ABG showed some metabolic acidosis. The patient will be extubated to a BiPAP as his CO2 was high on the ABG. Comments:OOB in the chairremains on epinephrine 2 micstarted dopamine gtt overnightUOP remains low, 35 cc onlypCT output 200 ccgiven one unit PRBC Objective GeneralVS/I OLast Documented: Result Date Time Pulse Ox 95 07/11 05 B/P 128/44 07/11 555 B/P Mean 62 07/11 555 Temp 99.3 07/11 555 Pulse 87 07/11 05 Resp 30 07/11 05 O2 Delivery High flow nasal cannula 07/10 1999 O2 Flow Rate 2 07/10 1999 FiO2 50 07/08 1919 24 hour I O ending at 0700: 07/11 0700 07/10 1900 Intake Total 450 1283.00 Output Total 1027 Balance 450 256.00 Intake, IV 100 383.00 Intake, Oral 560 Intake, Oral 240 Supplement Intake, Other 100 Intake, 350 Packed Cells Number Voids Output, CRRT 489 Ultrafiltration Output, Chest 395 Tube Drainage Output, Urine 143 PATIENT WEIGHT: Weight (lb): 185Weight (oz): 3.01Weight (kg): 84.000 Medications:Active Meds + DC'd Last 24 HrsIpratropium [place] (ATROVENT) 500 MCG RTQ2H PRN PRN INH Cyanocobalamin (Vitamin B-12 500 mcg tab) 500 MCG DAILY PO Ferrous Sulfate (FERROUS SULFATE) 325 MG DAILY PO Calcium Gluconate/Sodium Chloride (Calcium Gluconate 1 GM/NS 50 mL) 50 ML ONCE ONE IV (DC) Dopamine HCl/Dextrose (DOPamine 400MG/D5W 250ML) 250 ML ASDIR IV Bisacodyl (DULCOLAX) 10 MG ONCE PRN RECTAL Magnesium Hydroxide (MILK OF MAGNESIA) 30 ML ONCE PRN PO (DC) Insulin Human Lispro (HUMALOG) 0 AC HS SUBQ Atorvastatin Calcium (LIPITOR) 40 MG 2100 PO Clopidogrel Bisulfate (Plavix) 75 MG DAILY PO Polyethylene Glycol (MIRALAX) 17 GM DAILY PO Miscellaneous Information (PHARMACY TO DOSE/EVALUATE) 1 EACH ASDIR MISC Calcium Chloride (CALCIUM CHLORIDE) 1 GM ASDIR PRN IV Sodium Chloride (SODIUM CHLORIDE 0.9%) 100 MLCalcium Chloride (CALCIUM CHLORIDE) 2 GM ASDIR PRN IV Sodium Chloride (SODIUM CHLORIDE 0.9%) 100 MLMagnesium Sulfate (MAGNESIUM SULFATE 4GM/SWFI 100ML) 100 ML ASDIR PRN IV Magnesium Sulfate (MAGNESIUM SULFATE 2GM/SWFI 50ML) 50 ML ASDIR PRN IV Miscellaneous (PRISMASATE BGK 4/2.5 SOLUTION) 5,000 ML ASDIR DIALYSIS Potassium Chloride (KCL 10MEQ/SWFI 50ML) 50 ML ASDIR PRN IV Sodium Chloride (SODIUM CHLORIDE 0.9%) 2,000 ML ASDIR PRN IV Sodium Phosphate (SODIUM PHOSPHATE) 25 MMOL ASDIR PRN IV Sodium Chloride (SODIUM CHLORIDE 0.9%) 250 MLSodium Phosphate (SODIUM PHOSPHATE) 20 MMOL ASDIR PRN IV Sodium Chloride (SODIUM CHLORIDE 0.9%) 250 MLSodium Phosphate (SODIUM PHOSPHATE) 15 MMOL ASDIR PRN IV Sodium Chloride (SODIUM CHLORIDE 0.9%) 250 MLPantoprazole (PROTONIX) 40 MG DAILY@0600 PO Aspirin (ASPIRIN) [...] (Senna Lax 8.6 MG TABLET) 17.2 MG BEDTIME PO Ipratropium [place] (ATROVENT) 500 MCG RTQ4H INH Acetaminophen (TYLENOL) 650 MG Q4H PRN PRN PO Acetaminophen (TYLENOL) 650 MG Q4H PRN PRN RECTAL Calcium Chloride (CALCIUM CHLORIDE) 1 GM ASDIR PRN IV Dextrose/Water (DEXTROSE 10% IN WATER) 125 ML ASDIR PRN IV (CKD) Dextrose/Water (DEXTROSE 10% IN WATER) 250 ML ASDIR PRN IV (CKD) Epinephrine (ADRENALIN CHLORIDE) 4 MG ASDIR IV Dextrose/Water (DEXTROSE 5% WATER) 246 MLGlucagon (GLUCAGON) 1 MG ASDIR PRN IM Insulin Human Regular (HumuLIN R) 100 UNIT ASDIR IV (DC) Sodium Chloride (SODIUM CHLORIDE 0.9%) 99 MLMagnesium Sulfate (MAGNESIUM SULFATE 4GM/SWFI 100ML) 100 ML ASDIR PRN IV Magnesium Sulfate (MAGNESIUM SULFATE 2GM/SWFI 50ML) 50 ML ASDIR PRN IV Magnesium Sulfate/Dextrose (MAGNESIUM SULFATE 1GM/D5W 100ML) 100 ML ASDIR PRN IV Nitroglycerin/Dextrose (NITROGLYCERIN 50,000MCG/D5W 250ML) 250 ML ASDIR IV Norepinephrine Bitartrate (NOREPINEPHRINE 8 MG/NS 250 ML) 250 ML TITRATE IV Ondansetron HCl (ZOFRAN) 4 MG Q6H PRN PRN IV Oxycodone HCl (ROXICODONE) 5 MG Q4H PRN PRN PO Oxycodone HCl (ROXICODONE) 10 MG Q4H PRN PRN PO Potassium Chloride (KCL 20MEQ/SWFI 100ML) 100 ML ASDIR PRN IV Sodium Bicarbonate (SODIUM BICARBONATE) 50 MEQ ASDIR PRN IV Sodium Chloride (SODIUM CHLORIDE 0.9%) 1,000 ML .Q20H IV Sodium Chloride (SODIUM CHLORIDE 0.9%) 250 ML Q24H IV Albumin Human (ALBUMINAR-25%) 12.5 GM ASDIR PRN IV Heparin Sodium (Porcine) (HEPARIN SODIUM) 3,000 UNIT ASDIR PRN DIALYSIS Lidocaine HCl (LIDOCAINE HCL/PF) 0.5 ML ASDIR PRN I-DERMAL (CKD) Mannitol (Mannitol 20%) 12.5 GM ASDIR PRN IV Sodium Chloride (SODIUM CHLORIDE 0.9%) 2,000 ML ASDIR PRN IV Tamsulosin HCl (Flomax 0.4 mg) 0.4 MG BEDTIME PO ResultsFindings/data:Laboratory Tests 07/11 07/11 07/10 0430 [id number] Blood Gas Puncture Site [place] Art Line Art Line O2 Saturation [...] Device HFNC HFNC Cannula Laboratory Tests 07/11 07/11 07/11 07/11 07/10 0430 [id number] 2008Chemistry Sodium (134 - 147 mEq/L) 136 137 [...] 8.6 Ionized Calcium Tenzin (1.09 - 1.30 1.14MMOL/L) Magnesium (1.80 - 2.40 mg/dL) 2.89 H [...] 07/10 07/10 07/10 1626 1445 1156 1005 1000Chemistry Sodium (134 - 147 mEq/L) 136 136 [...] - 32.0 %) 4.2 L 3.2 L Starke % (Auto) (4.8 - 9.0 %) 7.5 5.4 Eos % (Auto) (0.3 - 3.7 %) 0.8 0.4 Baso % (Auto) (0.0 - 2.0 %) 0.3 0.2 Neut # (Auto) (2.0 - 7.6 x10 3/uL) 19.22 H 22.14 H Lymph # (Auto) (1.0 - 3.8 x10 3/uL) 0.93 L 0.79 L Starke # (Auto) (0.1 - 0.8 x10 3/uL) 1.66 H 1.32 H Eos # (Auto) (0.0 - 0.2 x10 3/uL) 0.17 0.09 Baso # (Auto) (0.0 - 0.2 x10 3/uL) 0.06 0.06 Abs Immat Gran (auto) (0.00 - 0.03 x10 3/uL) 0.19 H 0.26 H Add Manual Diff NO NO Immature Gran % (0.0 - 2.0 %) 0.9 1.1 Nucleated RBC % (0 - 0 %) 0.0 0.0 Nucleated RBCs # (Man) (0.0 - 0.1 x10 3/uL) 0.00 0.00 Immature Plt Fraction (0.9 - 11.2 %) 6.5 Laboratory Tests 07/11/22 0229:[Embedded Image Not Available] 07/10/222007:[Embedded Image Not Available] 07/10/22 1445:[Embedded Image Not Available] 07/10/22 1000:[Embedded Image Not Available] Radiology dataRecent Impressions:RADIOLOGY - XR CHEST 1 V 07/11 0554 Report Impression - Status: SIGNED Entered: 07/11/2022 1255 IMPRESSION: 1. Moderate enlarged cardiac silhouette. 2. Small bilateral pleural effusions. 3. Moderate to severe pulmonary edema versus infiltrates, pneumonia. Progression of opacities within right lower chest. 4. Degenerative and postsurgical changes are demonstrated, as described above. Impression By: [email or web address] - Manuel Vega M.D. Free Text Obj NotesFree Text Obj Notes:General appearance: Elderly male in no acute distress, interactive and conversationalHEENT: atraumatic, normocephalic, moist mucosal membranesNeck: full range of motion, supple/no meningismusCardiovascular: S1-S2 regular rate and rhythmRespiratory: symmetric expansion, no acute respiratory distressAbdomen: soft, non-tender, no distention, no guardingGenitourinary: waters with minimal urine outputExtremities: pedal pulses palpable, moves all, no cyanosis, mild LE edemaMusculoskeletal: normal inspection, no muscle spasmNeuro/GIFT OFFICER: alert and oriented x3, CNII-XII grossly intact, no motor deficitsSkin: dry, intact and clean surgery dressing Diagnosis, Assessment PlanProblem list/A P: 1. CLAUDETTE (acute kidney injury) 2. CAD (coronary artery disease) 3. Goiter 4. BPH (benign prostatic hyperplasia) 5. Dyslipidemia 6. HTN (hypertension) Free text A P:73-year-old male with Acute pulmonary insufficiency following thoracic surgeryStatus post CABG x 5 (MISTRY-LAD, SVG-Ladonna, SVG-OM1< SVG-OM3, SVG-PDA) and ALAAAcute blood loss anemiaHypotensionIschemic cardiomyopathy, EF 30 to 34%Multivessel CADAKI on hemodialysis Continue mechanical ventilation, vent settings reviewedTitrate FiO2 to keep saturation more than 90%.Spontaneous breathing trial as soon as possibleWean to extubateFollow ABGs and CXRsABG shows metabolic acidosis. Patient received 2 A of sodium bicarb and 1 g of calciumKeep off sedationJudicious pain controlMilrinone drip 0.25Epinephrine dripNorepinephrine dripVasopressin dripTitrate drips to keep MAP more than 65Wean milrinone off first per CV surgeryMinimize fluids per CV surgeryAspirin and PlavixAtorvastatinMetoprololFollow lactate levelMonitor chest tube outputHemodialysis per nephrologyMonitor urine output and kidney functionMonitor and replete electrolytesPerioperative antibioticsCardiac diet with bowel regimen once extubatedBG control with insulin gtt per protocolPT/OTVTE prophylaxis.Stress ulcer prophylaxis.Discussed with CV surgery, anesthesia and ICU teamCritical care time 85 minutes 2/1Appears neuro intact, multimodal pain control, minimize narcotic use, no CO2 narcosisExtubated successfully, sats well on NC, wean O2, monitor for hypercapnia, encourage I-S, obtain serial ABGs, CXR reviewedHD unstable, weaning vasopressors and inotrope, monitor HD parameters, low CVP, lactic acidosis with uptrending lactate, gentle volume resuscitationOliguric CLAUDETTE, plan for CRRT per renal, hyperkalemia treated, obtain serial labPO challenge, bowel regimen, serial abdominal exam, monitor LFTsLeukocytosis postop, likely reactive, trend WBC, s/p antibiotic course for UTI ,periop antibioticsHgb trending down, no evidence of active bleed, monitor CTs output, RBC given HDinstabilityBlood glucose control with insulin drip per protocolEncourage PT/OT and activity as toleratedDVT and GI prophylaxis with DAPT and PPI 2/2Appears neuro intact, multimodal pain control, minimize narcotic usesats well on NC, wean O2, encourage I-S, ABG and CXR reviewedHD fairly stable, on minimal vasopressor support, lactic acidosis cleared s/p resuscitationOliguric CLAUDETTE, tolerated CRRT, holding off per renal, monitor UOP and electrolytes closelyOral diet as tolerated, bowel regimen, monitor LFTsLeukocytosis postop, trend WBC, treated for UTI preopHgb responded to PRBC, no evidence of active bleed, minimal CTs outputBlood glucose control, transitioned insulin drip to SSIEncourage PT/OT and out of bed as toleratedDVT and GI prophylaxis with DAPT and PPI 2/3Remains neuro intact, pain appears well controlledSats well on NC, wean O2, encourage I-S, ABG and CXR reviewedHD unstable, remains on minimal vasopressor support, attempt to wean, start midodrineOliguric CLAUDETTE, off CRRT per renal, minimal UOP, started renal dose dopamine dripTolerating oral diet, continue bowel regimen, LFTs normalizedLeukocytosis postop, continue to trend WBC, treated for UTI preopHgb stable s/p PRBC, no evidence of active bleed, monitor pCT outputBlood glucose control with sliding scale insulinEncourage PT/OT and out of bed as tolerated, CM for dispo planDVT and GI prophylaxis with DAPT and PPI Consultants: cardiology, cardiovascular surgery, nephrologyPlan discussed with: patient, consultants, nurse, interdisc care team, pharmacy/pharmacistCritical care time: Minutes: 39 at 0247 RPT #:[id number] OF REPORTPRProgress [id number] Available for patient [id number] HCACL 2022-07-10 14:49:00 [id number] [facility] ([facility])Cardiothoracic Surgery ProgREPORT#:[id number] REPORT STATUS: SignedDATE:07/10/22 TIME: 1449 PATIENT: SHERRI ARCE UNIT #: [id number]#: [id number] [place] [facility] [place]DOB: [birth year] AGE: 81 SEX: M ATTEND: Srinath Kaur [facility] AUTHOR: Rosalind Toribio PREMIUM CARD CANCELLATION CLERK * ALL edits or amendments must be made on the electronic/computer document * GeneralPost-op: day 2Status post:07/08/22 CABG x 5 (MISTRY-LAD, SVG-Ladonna, SVG-OM1< SVG-OM3, SVG-PDA) ALEXIS OSMANH (RGSV) SubjectiveChief complaint:Chest PainPre CABG evals/p CABGno complaints Review of SystemsConstitutional:Denies: chills, fever, malaise. Allergy/Immun:Denies: allergic reaction. Respiratory:Denies: SOB. Cardiovascular:Denies: chest pain, palpitations. GI:Denies: abdominal pain, nausea, vomiting. :Denies: dysuria, hematuria. Heme:Denies: bleeding. Neuro:Denies: dizziness, headache, vision change. All systems rev neg: except as marked Objective GeneralVS/I OLast Documented: Result Date Time Pulse Ox 94 07/10 1138 B/P 110/36 07/10 1138 B/P Mean 54 07/10 1138 Temp 98.8 07/10 1138 Pulse 81 07/10 1138 Resp 24 07/10 1138 O2 Delivery Nasal cannula 07/10 1014 O2 Flow Rate 3 07/10 1014 FiO2 50 07/08 1919 24 hour I O ending at 0700: 07/10 0700 02/ 1900 Intake Total 1384.00 2715.00 Output Total 2867 2732 Balance -1483.00 -17.00 Intake, IV 554.00 815.00 Intake, Oral 480 1900 Intake, 350 Packed Cells Output, CRRT 2716 2200 Ultrafiltration Output, Chest 50 210 Tube Drainage Output, Urine 101 322 PATIENT WEIGHT: Weight (lb): 185Weight (oz): 3.01Weight (kg): 84.000 Dietitian Nutrition assessmentThe data set between the solid lines has been imported from the dietitian's assessment. BMI Calculated: 25.1Nutrition related diagnosis: Nutrition diagnosis details: Nutrition problem: Increased nutrient needsNutrition etiology: Chronic diseaseNutrition signs and symptoms: ESTIMATED NEEDS S/P CABGNutrition prescription: 1. RECOMMEND CONTIUE CARDIAC DIET, MONITOR LABS WITH PTON DIALYSIS. 2. CONTINUE NEPRO BID. 3. DIET EDUCATION PRIOR TO DISCHARGE. 4. MONITOR PO, WT, LABS, BM.Dietitian name: Trang Rodriguez, DIETAssessment completed: 07/10/22 Physical ExamGeneral appearance: alert, awake, orientedWound/incision: Location:sternal Site condition: dressing clean dry, dressing intactHEENT: anicteric, mucosal membranes moistNeck: supple/no meningismusCardiovascular: normal heart sounds, regular rate rhythmRespiratory: aerating well, symmetric expansion, no distressAbdomen: soft, non-tender, no distentionGenitourinary: waters, oN hd Extremities: moves allNeuro/GIFT OFFICER: alert, oriented X 3, normal speech, no motor deficitsPsychiatry: normal affect, normal mood Current MedicationsMedications:Active Meds + DC'd Last 24 HrsIpratropium [place] (ATROVENT) 500 MCG RTQ2H PRN PRN INH Cyanocobalamin (Vitamin B-12 500 mcg tab) 500 MCG DAILY PO Ferrous Sulfate (FERROUS SULFATE) 325 MG DAILY PO Bisacodyl (DULCOLAX) 10 MG ONCE PRN RECTAL Magnesium Hydroxide (MILK OF MAGNESIA) 30 ML ONCE PRN PO (DC) Insulin Human Lispro (HUMALOG) 0 AC HS SUBQ Calcium Gluconate/Sodium Chloride (Calcium Gluconate 1 GM/NS 50 mL) 50 ML ONCE ONE IV (DC) Calcium Gluconate/Sodium Chloride (Calcium Gluconate 1 GM/NS 50 mL) 50 ML ONCE ONE IV (DC) Atorvastatin Calcium (LIPITOR) 40 MG 2100 PO Calcium Gluconate/Sodium Chloride (Calcium Gluconate 1 GM/NS 50 mL) 50 ML ONCE ONE IV (DC) Clopidogrel Bisulfate (Plavix) 75 MG DAILY PO Polyethylene Glycol (MIRALAX) 17 GM DAILY PO Miscellaneous Information (PHARMACY TO DOSE/EVALUATE) 1 EACH ASDIR MISC Calcium Chloride (CALCIUM CHLORIDE) 1 GM ASDIR PRN IV Sodium Chloride (SODIUM CHLORIDE 0.9%) 100 MLCalcium Chloride (CALCIUM CHLORIDE) 2 GM ASDIR PRN IV Sodium Chloride (SODIUM CHLORIDE 0.9%) 100 MLMagnesium Sulfate (MAGNESIUM SULFATE 4GM/SWFI 100ML) 100 ML ASDIR PRN IV Magnesium Sulfate (MAGNESIUM SULFATE 2GM/SWFI 50ML) 50 ML ASDIR PRN IV Miscellaneous (PRISMASATE BGK 4/2.5 SOLUTION) 5,000 ML ASDIR DIALYSIS Potassium Chloride (KCL 10MEQ/SWFI 50ML) 50 ML ASDIR PRN IV Sodium Chloride (SODIUM CHLORIDE 0.9%) 2,000 ML ASDIR PRN IV Sodium Phosphate (SODIUM PHOSPHATE) 25 MMOL ASDIR PRN IV Sodium Chloride (SODIUM CHLORIDE 0.9%) 250 MLSodium Phosphate (SODIUM PHOSPHATE) 20 MMOL ASDIR PRN IV Sodium Chloride (SODIUM CHLORIDE 0.9%) 250 MLSodium Phosphate (SODIUM PHOSPHATE) 15 MMOL ASDIR PRN IV Sodium Chloride (SODIUM CHLORIDE 0.9%) 250 MLPantoprazole (PROTONIX) 40 MG DAILY@0600 PO Aspirin (ASPIRIN) [...] (Senna Lax 8.6 MG TABLET) 17.2 MG BEDTIME PO Cefazolin Sodium (KEFZOL OR ANCEF) 6 GM ONCE ONE IV (DC) Sodium Chloride (SODIUM CHLORIDE 0.9%) 500 MLIpratropium [place] (ATROVENT) 500 MCG RTQ4H INH Acetaminophen (TYLENOL) 650 MG Q4H PRN PRN PO Acetaminophen (TYLENOL) 650 MG Q4H PRN PRN RECTAL Albumin Human (ALBUMINAR 25%) 25 GM ASDIR PRN IV (DC) Calcium Chloride (CALCIUM CHLORIDE) 1 GM ASDIR PRN IV Dextrose/Water (DEXTROSE 10% IN WATER) 125 ML ASDIR PRN IV (CKD) Dextrose/Water (DEXTROSE 10% IN WATER) 250 ML ASDIR PRN IV (CKD) Epinephrine (ADRENALIN CHLORIDE) 4 MG ASDIR IV Dextrose/Water (DEXTROSE 5% WATER) 246 MLGlucagon (GLUCAGON) 1 MG ASDIR PRN IM Insulin Human Regular (HumuLIN R) 100 UNIT ASDIR IV (DC) Sodium Chloride (SODIUM CHLORIDE 0.9%) 99 MLMagnesium Sulfate (MAGNESIUM SULFATE 4GM/SWFI 100ML) 100 ML ASDIR PRN IV Magnesium Sulfate (MAGNESIUM SULFATE 2GM/SWFI 50ML) 50 ML ASDIR PRN IV Magnesium Sulfate/Dextrose (MAGNESIUM SULFATE 1GM/D5W 100ML) 100 ML ASDIR PRN IV Nitroglycerin/Dextrose (NITROGLYCERIN 50,000MCG/D5W 250ML) 250 ML ASDIR IV Norepinephrine Bitartrate (NOREPINEPHRINE 8 MG/NS 250 ML) 250 ML TITRATE IV Ondansetron HCl (ZOFRAN) 4 MG Q6H PRN PRN IV Oxycodone HCl (ROXICODONE) 5 MG Q4H PRN PRN PO Oxycodone HCl (ROXICODONE) 10 MG Q4H PRN PRN PO Potassium Chloride (KCL 20MEQ/SWFI 100ML) 100 ML ASDIR PRN IV Sodium Bicarbonate (SODIUM BICARBONATE) 50 MEQ ASDIR PRN IV Sodium Chloride (SODIUM CHLORIDE 0.9%) 1,000 ML .Q20H IV Sodium Chloride (SODIUM CHLORIDE 0.9%) 250 ML Q24H IV Albumin Human (ALBUMINAR-25%) 12.5 GM ASDIR PRN IV Heparin Sodium (Porcine) (HEPARIN SODIUM) 3,000 UNIT ASDIR PRN DIALYSIS Lidocaine HCl (LIDOCAINE HCL/PF) 0.5 ML ASDIR PRN I-DERMAL (CKD) Mannitol (Mannitol 20%) 12.5 GM ASDIR PRN IV Sodium Chloride (SODIUM CHLORIDE 0.9%) 2,000 ML ASDIR PRN IV Tamsulosin HCl (Flomax 0.4 mg) 0.4 MG BEDTIME PO ResultsFindings/Data:Laboratory Tests 07/10 07/10 07/09 07/09 1005 3886 1149 2130Blood Gas Puncture Site Art Line Art Line [place] Al[place] Art Line O2 Saturation (90 - 100 %) 96.7 91.7 93.2 ABG pH (7.35 - 7.45) 7.385 7.408 7.373 ABG pCO2 (35.0 - 45 mmHg) 46.4 H 42.4 43.6 ABG pO2 (80 - 100.0 mmHg) 89.1 62.6 L 69.7 L ABG HCO3 (22.0 - 26.0 MMOL/L) 27.8 H 26.8 H 25.4 ABG Total CO2 29.2 28.1 26.8 ABG Base Excess (-4.0 - 4.0 MMOL/L) 2.7 2.1 0.2 ABG Hematocrit (37.5 - 50.7 %) 24 L 24 L 24 L 23 L ABG Hemoglobin (12.5 - [...] Calcium (1.12 - 1.32 MMOL/L) 1.36 H 1.27 1.22 1.18 Lactic Acid (0.9 - 1.7 mmol/l) 1.3 0.7 L 0.6 L 0.8 L Temperature (F) 98.4 O2 Delivery Device Cannula [facility] 07/09 1840 Blood Gas Puncture Site R [...] 07/10 07/10 07/10 1156 1005 1000 0959 0559Chemistry Sodium (134 - 147 mEq/L) 136 Potassium [...] 8.9 Ionized Calcium Tenzin (1.09 - 1.30 1.21MMOL/L) Phosphorus (2.5 - 4.9 MG/DL) 3.7 Magnesium (1.80 - 2.40 mg/dL) 2.28 07/10 07/10 07/10 07/10 07/09 0515 0330 0328 0218 2349Chemistry Sodium (134 - 147 mEq/L) 141 Potassium [...] 9.1 Ionized Calcium Tenzin (1.09 - 1.30 1.14MMOL/L) Phosphorus (2.5 - 4.9 MG/DL) 3.8 Magnesium (1.80 - 2.40 mg/dL) 2.32 Total Bilirubin (0.0 - 1.0 mg/dL) 0.20 Direct Bilirubin (0.0 - 0.30 MG/DL) 0.10 Indirect Bilirubin (MG/DL) 0.10 AST (15 - 37 IUnit/L) 64 H ALT (30 - 65 IUnit/L) < 7 L Total Alk Phosphatase (20 - 125 54IUnit/L) Total Protein (6.4 - 8.2 g/dL) 6.1 L Albumin (3.4 - 5.0 g/dL) 3.60 07/09 1600Chemistry Sodium (134 - 147 mEq/L) 142 143 [...] Ionized Calcium Tenzin (1.09 - 1.30 1.11 1.16MMOL/L) Phosphorus (2.5 - 4.9 MG/DL) 4.1 Magnesium [...] - 32.0 %) 3.6 L 3.9 L Starke % (Auto) (4.8 - 9.0 %) 8.3 7.9 Eos % (Auto) (0.3 - 3.7 %) 0.5 0.0 L Baso % (Auto) (0.0 - 2.0 %) 0.4 0.3 Neut # (Auto) (2.0 - 7.6 x10 3/uL) 20.33 H 18.20 H Lymph # (Auto) (1.0 - 3.8 x10 3/uL) 0.84 L 0.82 L Starke # (Auto) (0.1 - 0.8 x10 3/uL) 1.95 H 1.66 H Eos # (Auto) (0.0 - 0.2 x10 3/uL) 0.12 0.01 Baso # (Auto) (0.0 - 0.2 x10 3/uL) 0.10 0.06 Abs Immat Gran (auto) (0.00 - 0.03 x10 3/uL) 0.17 H 0.16 H Add Manual Diff NO NO Immature Gran % (0.0 - 2.0 %) 0.7 0.8 Nucleated RBC % (0 - 0 %) 0.0 0.0 Nucleated RBCs # (Man) (0.0 - 0.1 x10 3/uL) 0.00 0.00 Radiology data:Recent Impressions:RADIOLOGY - XR CHEST 1 V 07/10 525 Report Impression - Status: SIGNED Entered: 07/10/2022 2631 IMPRESSION: 1. Small left apical pneumothorax, new from prior studies with thoracostomy tube in place. 2. Stable pulmonary opacities likely combination of airspace disease and atelectasis. 3. Stable small pleural effusions. 4. Stable postoperative cardiomediastinal silhouette. Impression By: Robert Ratliff M.D. Results: labs reviewed, vital signs stable, rythm personally rev'd, x-ray personally reviewed, current med profile rev'd Quality: Trauma Gen Surg Advanced Care Plan 65 or OlderDiscussed with: patientDiscussion included: living will (none), power of school commissioner (none), code status (full code) VTE Prophylaxis - GeneralVTE prophylaxis initiated: yes Diagnosis, Assessment PlanHospital course to date:This is a 81-year-old gentleman who presented to an outside hospital with complaints of chest pains while walking at his home on Thursday. He denies any previous history of coronary artery disease or other [place]. He was seen and evaluated at [facility]. He was found to have a urinary tract infection with urinary retention and acute kidney. He was started on dialysis via a left femoral temporary catheter. He underwent dialysis on Thursday, Thursday. Renal has been consultedDuring his work-up at outside hospital he underwent Left heart catheterization showing severe Left Main 70%. LAD: Proximal diffuse 80% stenosis and then diffuse 60% in the midsegment and on the distal segment, there is focal 70% stenosis. Diagonal branches with luminal irregularities. Left circumflex, codominant circulation with proximal 80%, mid 80 to 90% and then in the OM, there is proximal 60%, distal left circumflex has a 70% stenosis. RCA large and dominant with proximal 40% stenosis, mid 60% stenosis and then diffuse 50% stenosis all the way distally and the PLV and the PDA with luminal irregularities. CV surgery consulted for evaluation for coronary bypass graft. CAROTIDS- No carotid stenosis CT chest complete IMPRESSION: Small bilateral pleural effusions with bibasilar atelectasis. Echo:1. Left ventricle: The cavity size is at the upper limits of normal. Wall thickness is mildly increased. Systolic function is severely reduced. The estimated ejection fraction is 30-34%. Moderate hypokinesis of the entire myocardium. Doppler parameters are consistent with abnormal left ventricular relaxation (grade 1 diastolic dysfunction).2. Pericardium, extracardiac: A small pericardial effusion is identified along the left ventricular free wall, along the right ventricular free wall, and along the right atrial free wall. Assessment/Plan1) CAD Mutlivessel Will obtain echo,carotids. 2) CLAUDETTE Started dialysis on Creatine 7.3 Renal consulted. 3) BPH- Urinary retention. Waters in place Workup for CABG underway. Will get functional assessment with PT. PFT pending Carotid dopplers- No disease Echo PendingDialyiss per Renal. Baseline Cr unknown. 07/04 07/04 Doing well today, alert, up in the chair. Denies chest painEchocardiogram showed LVEF 30 to 34%, mild MR, trivial TRCT chest images reviewedEncourage I-S and mobilizationCreatinine 5.5 from 7.3, good urine output. Renal US showed bilateral severe hydronephrosis. Plan for HD today and tomorrow Will tentatively schedule patient for surgery on Thursday.Patient seen and plan reviewed with Dr Schwarz 07/05 Remains in a stable condition, denies chest pain BUN 53, creatinine 5.4. Plan for hemodialysis today and tomorrow for clearanceHe is also on Lasix 20 mg IV twice daily, urine output 1.1 L overnightWe will calculate risk of surgery with STS scoreEncourage I-S and mobilizationWill tentatively schedule patient for surgery on Thursday.Pt seen and plan reviewed with Dr Schwarz 07/06 BUN 36, creatinine 4.4. Plan for hemodialysis todayAwaiting CABG tomorrowSurgery, risks involved, STS score, benefits, complications and alternatives were explained to the patient. He acknowledged understanding and is willing to proceedN.p.o. after midnightPatient seen and plan reviewed with Dr. Schwarz 07/09/22POD 1CABG x 5 (MISTRY-LAD, SVG-Ladonna, SVG-OM1< SVG-OM3, SVG-PDA), ALAA, EVH (RGSV)Patient hemodynamically unstable, on epi at 4, and vaso .04, decreased uop overnight- 150ccStarted patient on CRRT 2k/3.5Wean epi as tolerated, Cardiac incex 2.8-3labs and chest x-ray reviewed, electrolytes stable, hgb 6.5- transfuse 2 units PRBCOn 4l nasal cannula- encourage incentive spirometer and deep breathingKeep both chest tubes and monitor outputsGlycemic control on insulin dripCardiac dietBowel regimen protocolPain managementSCDs for DVT and PPI for GI prophylaxisPT/OTMonitor patient closely in CVICUPlan of care discussed with Dr. Schwarz 07/10/22POD 2Patient alert, awake, and oriented, no distres notedlabs and CXR reviewed stableBreathing comfortably on 3l nasal cannula- wean as tolerated to melissa O2 sats > 92%Encourage I-S use and deep breathingOn CRRT- able to remove 2.9L overnight- nephrology followingCardiac index 3.1- wean off epi dripKeep chest tubes for now and monitor outputsTransition to sliding scale insulin- cardiac dietTry to get patient out of bed to chair today- ambulate with PT/OTSCDs for DVT prophylaxisKeep patient in CVICU for close monitoring Consultants: cardiology, cardiovascular surgery, nephrology at 2033 at 1944 RPT #:[id number] OF REPORTPRProgress [id number]:[id number] Available for patient [id number]:43 HCACL 2022-07-10 14:05:00 [id number]:05:00 [facility] ([facility])Cardiology Progress NoteREPORT#:[id number] REPORT STATUS: SignedDATE:07/10/22 TIME: 1405 PATIENT: SHERRI ARCE UNIT #: [id number]#: [id number] [address] [birth year] AGE: 81 SEX: M ATTEND: Radha Ward [facility] AUTHOR: Sonya Stacy AGACNP * ALL edits or amendments must be made on the electronic/computer document * SubjectiveComments:On small dose of epinephrine dripDizziness upon standingChest tube, PA catheter indwelling Objective GeneralVS/I O:24 hour I O ending at 0700: 07/10 [...] O2 Flow FiO2 Mean Ox Delivery Rate 02/02 1138 37.1 81 24 110/36 54 94 02/02 1130 37.1 81 27 89/51 64 94 [...] 72 94 02/01 2029 126/48 65 02/01 2030 36.4 73 100/55 73 96 02/01 2013 95 Nasal 3 cannula 02/01 1999 High flow 8 nasal cannula 07/09 1999 121/43 61 /1999 36.0 72 23 100/54 74 100 02/ 1930 123/46 65 02/ 1930 35.6 69 24 109/58 80 100 02/ 1900 131/50 71 02/01 1900 35.3 66 26 114/62 82 100 02/ 1830 128/43 62 02/ 1830 35.2 65 23 109/52 74 92 02/ 1801 129/47 67 02/01 1801 35.3 66 26 106/55 75 94 02/01 1700 104/43 58 02/01 1700 35.4 64 21 89/50 64 95 02/ 1630 119/44 61 02/01 1630 35.4 65 23 96/54 69 94 02/ 1601 110/40 57 02/01 1601 35.7 67 26 98/54 70 94 02/01 1530 121/42 60 02/01 1530 35.9 68 23 102/58 77 96 02/ 1500 139/47 70 02/ 1500 36.3 71 24 122/60 85 96 02/ 1430 127/45 65 02/ 1430 36.7 72 23 115/56 80 97 PATIENT WEIGHT: Weight (lb): 185Weight (oz): 3.01Weight (kg): 84.000 Medications:Active Meds + DC'd Last 24 HrsIpratropium [place] (ATROVENT) 500 MCG RTQ2H PRN PRN INH Cyanocobalamin (Vitamin B-12 500 mcg tab) 500 MCG DAILY PO Ferrous Sulfate (FERROUS SULFATE) 325 MG DAILY PO Bisacodyl (DULCOLAX) 10 MG ONCE PRN RECTAL Magnesium Hydroxide (MILK OF MAGNESIA) 30 ML ONCE PRN PO (DC) Insulin Human Lispro (HUMALOG) 0 AC HS SUBQ Calcium Gluconate/Sodium Chloride (Calcium Gluconate 1 GM/NS 50 mL) 50 ML ONCE ONE IV (DC) Calcium Gluconate/Sodium Chloride (Calcium Gluconate 1 GM/NS 50 mL) 50 ML ONCE ONE IV (DC) Atorvastatin Calcium (LIPITOR) 40 MG 2100 PO Calcium Gluconate/Sodium Chloride (Calcium Gluconate 1 GM/NS 50 mL) 50 ML ONCE ONE IV (DC) Clopidogrel Bisulfate (Plavix) 75 MG DAILY PO Polyethylene Glycol (MIRALAX) 17 GM DAILY PO Miscellaneous Information (PHARMACY TO DOSE/EVALUATE) 1 EACH ASDIR MISC Calcium Chloride (CALCIUM CHLORIDE) 1 GM ASDIR PRN IV Sodium Chloride (SODIUM CHLORIDE 0.9%) 100 MLCalcium Chloride (CALCIUM CHLORIDE) 2 GM ASDIR PRN IV Sodium Chloride (SODIUM CHLORIDE 0.9%) 100 MLMagnesium Sulfate (MAGNESIUM SULFATE 4GM/SWFI 100ML) 100 ML ASDIR PRN IV Magnesium Sulfate (MAGNESIUM SULFATE 2GM/SWFI 50ML) 50 ML ASDIR PRN IV Miscellaneous (PRISMASATE BGK 4/2.5 SOLUTION) 5,000 ML ASDIR DIALYSIS Potassium Chloride (KCL 10MEQ/SWFI 50ML) 50 ML ASDIR PRN IV Sodium Chloride (SODIUM CHLORIDE 0.9%) 2,000 ML ASDIR PRN IV Sodium Phosphate (SODIUM PHOSPHATE) 25 MMOL ASDIR PRN IV Sodium Chloride (SODIUM CHLORIDE 0.9%) 250 MLSodium Phosphate (SODIUM PHOSPHATE) 20 MMOL ASDIR PRN IV Sodium Chloride (SODIUM CHLORIDE 0.9%) 250 MLSodium Phosphate (SODIUM PHOSPHATE) 15 MMOL ASDIR PRN IV Sodium Chloride (SODIUM CHLORIDE 0.9%) 250 MLPantoprazole (PROTONIX) 40 MG DAILY@0600 PO Aspirin (ASPIRIN) [...] (Senna Lax 8.6 MG TABLET) 17.2 MG BEDTIME PO Cefazolin Sodium (KEFZOL OR ANCEF) 6 GM ONCE ONE IV (DC) Sodium Chloride (SODIUM CHLORIDE 0.9%) 500 MLIpratropium [place] (ATROVENT) 500 MCG RTQ4H INH Acetaminophen (TYLENOL) 650 MG Q4H PRN PRN PO Acetaminophen (TYLENOL) 650 MG Q4H PRN PRN RECTAL Albumin Human (ALBUMINAR 25%) 25 GM ASDIR PRN IV (DC) Calcium Chloride (CALCIUM CHLORIDE) 1 GM ASDIR PRN IV Dextrose/Water (DEXTROSE 10% IN WATER) 125 ML ASDIR PRN IV (CKD) Dextrose/Water (DEXTROSE 10% IN WATER) 250 ML ASDIR PRN IV (CKD) Epinephrine (ADRENALIN CHLORIDE) 4 MG ASDIR IV Dextrose/Water (DEXTROSE 5% WATER) 246 MLGlucagon (GLUCAGON) 1 MG ASDIR PRN IM Insulin Human Regular (HumuLIN R) 100 UNIT ASDIR IV (DC) Sodium Chloride (SODIUM CHLORIDE 0.9%) 99 MLMagnesium Sulfate (MAGNESIUM SULFATE 4GM/SWFI 100ML) 100 ML ASDIR PRN IV Magnesium Sulfate (MAGNESIUM SULFATE 2GM/SWFI 50ML) 50 ML ASDIR PRN IV Magnesium Sulfate/Dextrose (MAGNESIUM SULFATE 1GM/D5W 100ML) 100 ML ASDIR PRN IV Nitroglycerin/Dextrose (NITROGLYCERIN 50,000MCG/D5W 250ML) 250 ML ASDIR IV Norepinephrine Bitartrate (NOREPINEPHRINE 8 MG/NS 250 ML) 250 ML TITRATE IV Ondansetron HCl (ZOFRAN) 4 MG Q6H PRN PRN IV Oxycodone HCl (ROXICODONE) 5 MG Q4H PRN PRN PO Oxycodone HCl (ROXICODONE) 10 MG Q4H PRN PRN PO Potassium Chloride (KCL 20MEQ/SWFI 100ML) 100 ML ASDIR PRN IV Sodium Bicarbonate (SODIUM BICARBONATE) 50 MEQ ASDIR PRN IV Sodium Chloride (SODIUM CHLORIDE 0.9%) 1,000 ML .Q20H IV Sodium Chloride (SODIUM CHLORIDE 0.9%) 250 ML Q24H IV Albumin Human (ALBUMINAR-25%) 12.5 GM ASDIR PRN IV Heparin Sodium (Porcine) (HEPARIN SODIUM) 3,000 UNIT ASDIR PRN DIALYSIS Lidocaine HCl (LIDOCAINE HCL/PF) 0.5 ML ASDIR PRN I-DERMAL (CKD) Mannitol (Mannitol 20%) 12.5 GM ASDIR PRN IV Sodium Chloride (SODIUM CHLORIDE 0.9%) 2,000 ML ASDIR PRN IV Tamsulosin HCl (Flomax 0.4 mg) 0.4 MG BEDTIME PO Physical ExamGeneral appearance: alert, awake, no acute distressNeck: full range of motion, no JVDCardiovascular: CV assessment: pedal edema (RLE - trace), regular rate and rhythm, no murmurRespiratory: decreased breath sounds, no distressAbdomen: soft, non-tender, normal bowel sounds, no distention, no guardingGenitourinary: urinary catheter, urineUpper extremity: UE assessment: normal temperature, no edemaLower extremity: LE assessment: edema (RLE trace), normal temperature, no edemaMusculoskeletal: normal inspectionNeuro/GIFT OFFICER: alert, oriented X 3, normal speechSkin: dryPsychiatry: normal affect ResultsFindings/Data:Laboratory Tests 07/10 07/10 07/09 07/09 1005 0328 7469 2130Blood Gas Puncture Site Art Line Art Line [place] Ally Art Line O2 Saturation (90 - 100 %) 96.7 91.7 93.2 ABG pH (7.35 - 7.45) 7.385 7.408 7.373 ABG pCO2 (35.0 - 45 mmHg) 46.4 H 42.4 43.6 ABG pO2 (80 - 100.0 mmHg) 89.1 62.6 L 69.7 L ABG HCO3 (22.0 - 26.0 MMOL/L) 27.8 H 26.8 H 25.4 ABG Total CO2 29.2 28.1 26.8 ABG Base Excess (-4.0 - 4.0 MMOL/L) 2.7 2.1 0.2 ABG Hematocrit (37.5 - 50.7 %) 24 L 24 L 24 L 23 L ABG Hemoglobin (12.5 - [...] Calcium (1.12 - 1.32 MMOL/L) 1.36 H 1.27 1.22 1.18 Lactic Acid (0.9 - 1.7 mmol/l) 1.3 0.7 L 0.6 L 0.8 L Temperature (F) 98.4 O2 Delivery Device Cannula [facility] 07/09 1840 Blood Gas Puncture Site R [...] 07/10 07/10 07/10 1156 1005 1000 0959 0559Chemistry Sodium (134 - 147 mEq/L) 136 Potassium [...] 07/10 07/10 07/09 0515 0330 0328 0218 5579Chemistry Sodium (134 - 147 mEq/L) 141 Potassium [...] L Albumin (3.4 - 5.0 g/dL) 3.60 07/095 2129 2016 1839 1599Chemistry Sodium (134 - 147 mEq/L) 142 143 [...] - 32.0 %) 3.6 L 3.9 L Starke % (Auto) (4.8 - 9.0 %) 8.3 7.9 Eos % (Auto) (0.3 - 3.7 %) 0.5 0.0 L Baso % (Auto) (0.0 - 2.0 %) 0.4 0.3 Neut # (Auto) (2.0 - 7.6 x10 3/uL) 20.33 H 18.20 H Lymph # (Auto) (1.0 - 3.8 x10 3/uL) 0.84 L 0.82 L Starke # (Auto) (0.1 - 0.8 x10 3/uL) 1.95 H 1.66 H Eos # (Auto) (0.0 - 0.2 x10 3/uL) 0.12 0.01 Baso # (Auto) (0.0 - 0.2 x10 3/uL) 0.10 0.06 Abs Immat Gran (auto) (0.00 - 0.03 x10 3/uL) 0.17 H 0.16 H Add Manual Diff NO NO Immature Gran % (0.0 - 2.0 %) 0.7 0.8 Nucleated RBC % (0 - 0 %) 0.0 0.0 Nucleated RBCs # (Man) (0.0 - 0.1 x10 3/uL) 0.00 0.00 Laboratory Tests 07/10 07/10 07/09 07/09 1000 0330 2135 1600 Chemistry Magnesium (1.80 - 2.40 mg/dL) 2.28 2.32 2.25 2.28 Radiology data:Recent Impressions:RADIOLOGY - XR CHEST 1 V 07/10 05 Report Impression - Status: SIGNED Entered: 07/10/2022 0831 IMPRESSION: 1. Small left apical pneumothorax, new from prior studies with thoracostomy tube in place. 2. Stable pulmonary opacities likely combination of airspace disease and atelectasis. 3. Stable small pleural effusions. 4. Stable postoperative cardiomediastinal silhouette. Impression By: Robert Ratliff M.D. Results: labs reviewed, vital signs reviewed, rhythm personally rev'dTelemetry Interpretation:sinus rhythm Diagnosis, Assessment PlanProblem List/A P: 1. HTN (hypertension) 2. CLAUDETTE (acute kidney injury) 3. CAD (coronary artery disease) 4. Dyslipidemia 5. BPH (benign prostatic hyperplasia) Plan discussed with: patient, nurse Free Text DxA P NotesFree Text DxA P Notes:Mr. Arce is a pleasant 81 y/o M w/ PMHx: HTN, HLD presented to [facility] on 06/28/22 for chest pain and sob. He was diagnosed NSTEMI w/ [...] and diffuse 50-60% dRCA. He transferred to [facility] for CABG. 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 On statins, BB, ASA, plavix- as tolerated Echo: LVEF 30-34%, repeat echo prior to dc CXR 2/2 small left apical pneumothorax, chest tube in place Postop care per CTS - Acute Systolic HF with ischemic CMP LVEF 30-34% strict I/Os, daily weights, fluid restriction, low NA diet diuresis as needed per Nephrology no charly/arb/aldactone due to CLAUDETTE GDMT on discharge - CLAUDETTE. HD Per nephro. likely from obstructive uropathy. s/p waters cath. Renal ultrasound showed severe thickening of the bladder, cholelitiasis. - HTN. hypotension post-op On low-dose epinephrine drip, wean off if able - HLD. On statins. - Anemia. monitor at 1625 at 0834 RPT #:[id number] OF REPORTPRProgress [id number] Available for patient [id number] [facility] 2022-07-10 12:46:00 [id number] [facility] ([facility])Hospitalist Progress NoteREPORT#:[id number] REPORT STATUS: SignedDATE:07/10/22 TIME: 1246 PATIENT: SHERRI ARCE UNIT #: [id number]#: [id number] [address] [birth year] AGE: 81 SEX: M ATTEND: Radha Ward [facility] AUTHOR: Radha Ward MD * ALL edits or amendments must be made on the electronic/computer document * SubjectiveChief complaint:Status post CABG x5 on 07/09, 1 chest tube out, 1 chest tube in, on epinephrine, on CRRT, on 2 L oxygen via nasal cannula. Patient reports pain is well controlled. He is feeling better.HPI:81 y/o man with PMHx of HTN, Dyslipidemia that [facility] with chest pain and found to have a NSTEMI and also acute renal failure. Underwent cardiac cath yesterday and found to have severe CAD including left main disease. Transfer here for CABG evaluation. He also underwent HD Thursday and Thursday of this week. HD catheter was place at [facility]. Currently not having any chest pain. Had chest pain with SOB when he presentted to the previous hospital. Objective GeneralVS/I O:Vital Signs: Date Time Temp Pulse Resp B/P B/P Pulse O2 O2 Flow FiO2 Mean Ox Delivery Rate 07/10 1430 [...] 02/02 0000 98.8 74 108/58 77 96 02/ 2330 140/51 73 02/01 2330 99.0 74 27 113/59 83 95 02/01 2300 155/53 75 02/ 2300 99.0 73 26 113/56 79 96 02/ 2230 115/49 67 02/ 2230 99.0 72 25 105/58 78 94 02/ 2200 109/48 65 02/ 2200 99.0 72 28 105/54 75 94 02/0 127/46 64 02/2129 98.6 72 29 102/56 76 94 07/09 2100 118/45 62 07/09 2100 98.2 72 26 98/52 72 94 07/09 2029 126/48 65 07/09 2029 97.5 73 100/55 73 96 07/09 2013 95 Nasal 3 cannula 07/09 1999 High flow 8 nasal cannula 07/09 1999 121/43 61 07/09 1999 96.8 72 23 100/54 74 100 02/ 1930 123/46 65 02/ 1930 96.1 69 24 109/58 80 100 02/ 1900 131/50 71 02/ 1900 95.5 66 26 114/62 82 100 02/ 1830 128/43 62 02/01 1830 95.4 65 23 109/52 74 92 02/ 1801 129/47 67 02/ 1801 95.5 66 26 106/55 75 94 24 hour I O ending at 0700: 07/10 0700 07/09 1900 Intake Total 1384.00 2715.00 Output Total 2867 2732 Balance -1483.00 -17.00 Intake, IV 554.00 815.00 Intake, Oral 480 1900 Intake, 350 Packed Cells Output, CRRT 2716 2200 Ultrafiltration Output, Chest 50 210 Tube Drainage Output, Urine 101 322 PATIENT WEIGHT: Weight (lb): 185Weight (oz): 3.01Weight (kg): 84.000 Medications:Active Meds + DC'd Last 24 HrsIpratropium [place] (ATROVENT) 500 MCG RTQ2H PRN PRN INH Cyanocobalamin (Vitamin B-12 500 mcg tab) 500 MCG DAILY PO Ferrous Sulfate (FERROUS SULFATE) 325 MG DAILY PO Bisacodyl (DULCOLAX) 10 MG ONCE PRN RECTAL Magnesium Hydroxide (MILK OF MAGNESIA) 30 ML ONCE PRN PO (DC) Insulin Human Lispro (HUMALOG) 0 AC HS SUBQ Calcium Gluconate/Sodium Chloride (Calcium Gluconate 1 GM/NS 50 mL) 50 ML ONCE ONE IV (DC) Calcium Gluconate/Sodium Chloride (Calcium Gluconate 1 GM/NS 50 mL) 50 ML ONCE ONE IV (DC) Atorvastatin Calcium (LIPITOR) 40 MG 2100 PO Clopidogrel Bisulfate (Plavix) 75 MG DAILY PO Polyethylene Glycol (MIRALAX) 17 GM DAILY PO Miscellaneous Information (PHARMACY TO DOSE/EVALUATE) 1 EACH ASDIR MISC Calcium Chloride (CALCIUM CHLORIDE) 1 GM ASDIR PRN IV Sodium Chloride (SODIUM CHLORIDE 0.9%) 100 MLCalcium Chloride (CALCIUM CHLORIDE) 2 GM ASDIR PRN IV Sodium Chloride (SODIUM CHLORIDE 0.9%) 100 MLMagnesium Sulfate (MAGNESIUM SULFATE 4GM/SWFI 100ML) 100 ML ASDIR PRN IV Magnesium Sulfate (MAGNESIUM SULFATE 2GM/SWFI 50ML) 50 ML ASDIR PRN IV Miscellaneous (PRISMASATE BGK 4/2.5 SOLUTION) 5,000 ML ASDIR DIALYSIS Potassium Chloride (KCL 10MEQ/SWFI 50ML) 50 ML ASDIR PRN IV Sodium Chloride (SODIUM CHLORIDE 0.9%) 2,000 ML ASDIR PRN IV Sodium Phosphate (SODIUM PHOSPHATE) 25 MMOL ASDIR PRN IV Sodium Chloride (SODIUM CHLORIDE 0.9%) 250 MLSodium Phosphate (SODIUM PHOSPHATE) 20 MMOL ASDIR PRN IV Sodium Chloride (SODIUM CHLORIDE 0.9%) 250 MLSodium Phosphate (SODIUM PHOSPHATE) 15 MMOL ASDIR PRN IV Sodium Chloride (SODIUM CHLORIDE 0.9%) 250 MLPantoprazole (PROTONIX) 40 MG DAILY@0600 PO Aspirin (ASPIRIN) [...] (Senna Lax 8.6 MG TABLET) 17.2 MG BEDTIME PO Ipratropium [place] (ATROVENT) 500 MCG RTQ4H INH Acetaminophen (TYLENOL) 650 MG Q4H PRN PRN PO Acetaminophen (TYLENOL) 650 MG Q4H PRN PRN RECTAL Albumin Human (ALBUMINAR 25%) 25 GM ASDIR PRN IV (DC) Calcium Chloride (CALCIUM CHLORIDE) 1 GM ASDIR PRN IV Dextrose/Water (DEXTROSE 10% IN WATER) 125 ML ASDIR PRN IV (CKD) Dextrose/Water (DEXTROSE 10% IN WATER) 250 ML ASDIR PRN IV (CKD) Epinephrine (ADRENALIN CHLORIDE) 4 MG ASDIR IV Dextrose/Water (DEXTROSE 5% WATER) 246 MLGlucagon (GLUCAGON) 1 MG ASDIR PRN IM Insulin Human Regular (HumuLIN R) 100 UNIT ASDIR IV (DC) Sodium Chloride (SODIUM CHLORIDE 0.9%) 99 MLMagnesium Sulfate (MAGNESIUM SULFATE 4GM/SWFI 100ML) 100 ML ASDIR PRN IV Magnesium Sulfate (MAGNESIUM SULFATE 2GM/SWFI 50ML) 50 ML ASDIR PRN IV Magnesium Sulfate/Dextrose (MAGNESIUM SULFATE 1GM/D5W 100ML) 100 ML ASDIR PRN IV Nitroglycerin/Dextrose (NITROGLYCERIN 50,000MCG/D5W 250ML) 250 ML ASDIR IV Norepinephrine Bitartrate (NOREPINEPHRINE 8 MG/NS 250 ML) 250 ML TITRATE IV Ondansetron HCl (ZOFRAN) 4 MG Q6H PRN PRN IV Oxycodone HCl (ROXICODONE) 5 MG Q4H PRN PRN PO Oxycodone HCl (ROXICODONE) 10 MG Q4H PRN PRN PO Potassium Chloride (KCL 20MEQ/SWFI 100ML) 100 ML ASDIR PRN IV Sodium Bicarbonate (SODIUM BICARBONATE) 50 MEQ ASDIR PRN IV Sodium Chloride (SODIUM CHLORIDE 0.9%) 1,000 ML .Q20H IV Sodium Chloride (SODIUM CHLORIDE 0.9%) 250 ML Q24H IV Albumin Human (ALBUMINAR-25%) 12.5 GM ASDIR PRN IV Heparin Sodium (Porcine) (HEPARIN SODIUM) 3,000 UNIT ASDIR PRN DIALYSIS Lidocaine HCl (LIDOCAINE HCL/PF) 0.5 ML ASDIR PRN I-DERMAL (CKD) Mannitol (Mannitol 20%) 12.5 GM ASDIR PRN IV Sodium Chloride (SODIUM CHLORIDE 0.9%) 2,000 ML ASDIR PRN IV Tamsulosin HCl (Flomax 0.4 mg) 0.4 MG BEDTIME PO Physical ExamGeneral appearance: alert, awake, orientedHead/Eyes: atraumatic, EOMI, normal conjunctiva/sclera, normocephalic, PERRLAENT: moist mucosal membranesNeck: full range of motion, no bruit/NL carotids, no JVDCardiovascular: normal heart sounds, regular rate rhythmRespiratory: aerating well, clear to auscultation, symmetric expansion, no distressAbdomen: non-tender, normal bowel sounds, soft, no distention, no guarding, no reboundExtremities: moves all, no cyanosis, no edemaMusculoskeletal: normal inspectionNeuro/GIFT OFFICER: alert, oriented X 3, normal speech, no motor deficits, no sensory deficitsSkin: intact, normal color, no rashPsychiatry: normal affect ResultsFindings/Data:Laboratory Tests 07/10 07/10 07/09 07/09 1005 0328 2349 2130Blood Gas Puncture Site Art Line Art Line [place] Art Line O2 Saturation (90 - 100 %) 96.7 91.7 93.2 ABG pH (7.35 - 7.45) 7.385 7.408 7.373 ABG pCO2 (35.0 - 45 mmHg) 46.4 H 42.4 43.6 ABG pO2 (80 - 100.0 mmHg) 89.1 62.6 L 69.7 L ABG HCO3 (22.0 - 26.0 MMOL/L) 27.8 H 26.8 H 25.4 ABG Total CO2 29.2 28.1 26.8 ABG Base Excess (-4.0 - 4.0 MMOL/L) 2.7 2.1 0.2 ABG Hematocrit (37.5 - 50.7 %) 24 L 24 L 24 L 23 L ABG Hemoglobin (12.5 - [...] Calcium (1.12 - 1.32 MMOL/L) 1.36 H 1.27 1.22 1.18 Lactic Acid (0.9 - 1.7 mmol/l) 1.3 0.7 L 0.6 L 0.8 L Temperature (F) 98.4 O2 Delivery Device Cannula [facility] 07/09 1840 Blood Gas Puncture Site R [...] 07/10 07/10 07/10 1626 1445 1156 1005 1000Chemistry Sodium (134 - 147 mEq/L) 136 136 [...] 07/10 07/10 07/10 0959 0559 0515 0330 0328Chemistry Sodium (134 - 147 mEq/L) 141 Potassium [...] 3.60 07/10 07/09 07/09 07/09 07/09 0218 7615 2135 2129 2017Chemistry Sodium (134 - 147 mEq/L) 142 Potassium [...] - 32.0 %) 3.2 L 3.6 L [place] % (Auto) (4.8 - 9.0 %) 5.4 8.3 Eos % (Auto) (0.3 - 3.7 %) 0.4 0.5 Baso % (Auto) (0.0 - 2.0 %) 0.2 0.4 Neut # (Auto) (2.0 - 7.6 x10 3/uL) 22.14 H 20.33 H Lymph # (Auto) (1.0 - 3.8 x10 3/uL) 0.79 L 0.84 L Starke # (Auto) (0.1 - 0.8 x10 3/uL) 1.32 H 1.95 H Eos # (Auto) (0.0 - 0.2 x10 3/uL) 0.09 0.12 Baso # (Auto) (0.0 - 0.2 x10 3/uL) 0.06 0.10 Abs Immat Gran (auto) (0.00 - 0.03 x10 3/uL) 0.26 H 0.17 H Add Manual Diff NO NO Immature Gran % (0.0 - 2.0 %) 1.1 0.7 Nucleated RBC % (0 - 0 %) 0.0 0.0 Nucleated RBCs # (Man) (0.0 - 0.1 x10 3/uL) 0.00 0.00 Radiology data:Recent Impressions:RADIOLOGY - XR CHEST 1 V 07/10 6070 Report Impression - Status: SIGNED Entered: 07/10/2022 0340 IMPRESSION: 1. Small left apical pneumothorax, new from prior studies with thoracostomy tube in place. 2. Stable pulmonary opacities likely combination of airspace disease and atelectasis. 3. Stable small pleural effusions. 4. Stable postoperative cardiomediastinal silhouette. Impression By: Robert Ratliff M.D. Diagnosis, Assessment PlanConsultants: cardiology, cardiovascular surgery, nephrology Free Text DxA P NotesFree text DxA P notes:Assessment and plans:CAD (coronary artery disease) patient presented with NSTEMI and found to hve severe CAD. Cardiac cath shows: Left Main - Distal 70% LAD - Proximal 80% with another 60% and 70% lessions Cir - Proximal 80%,mid 80-90%, Distal 70% and OM 60% RCA - large dominant with proximal 40%, Mid 60%. Cardiology and CV surgeon consulted echo: ef 30-34%, mod hypokinesis of entire myocardium, grade 1 diastolic dysfunction Carotid Dopplers negative PFTs PT/OT s/p CABG X5 on 07/08 Patient on ASA, plavix, BB and Statin on amiodarone Beta-tomas as tolerated for low BP, on epinephrine, now off vasopressin 2/2 Acute systolic heart failure Echocardiac with estimated LVEF of 30 to 34% with grade 1 diastolic dysfunction-s/p Lasix 20 mg twice daily 07/05 -on metoprolol 12.5 mg bid on hold now, BP low-no ACEI/ spironolactione for CLAUDETTE-Strict I's and O's, daily weights-Start GDMT prior to discharge CLAUDETTE (acute kidney injury) No prior Hx of renal disease. hx of BPH and treated with Fosamax w/o improvement nd continue to have difficulty urinating. On admission was found to be on acute renal filaure and had received HD twice prior to arrival here (thursday and thursday). Creatinine this am was 7.4, BUN 68 * Probably due to obstructive uropathy* waters already in place* Nephrology consuled for HD On daily hemodialysis as per nephrology CRRT as per nephrology 2/ Anemia:-Hemoglobin dropped to 6.5 s/p CABG 2 PRBC BT ordered / Monitor H H HTN (hypertension) patient on metoprolol 12.5 mg BID, will adjust as needed On labetalol/hydralazine as needed Dyslipidemia on Lipitor 40mg po daliy. BPH (benign prostatic hyperplasia) Started on Flomax at the previous hospital, will continue with it. Waters catheter in place, continue Waters catheter as per nephrology 07/05 Goiter Hx of Goiter and surgical resection. TSH 3.33, within normal limits. Patient is not on Thyroid medication. anemia of chronic kidney disease Hemoglobin 9.5, monitor Hypokalemia resolved UTI continue Rocephin for empiric treatment pending results of urine culture No growth for 48 hours DVT prophylaxis: Heparin 5000 units every 8 hoursDiet: Cardiac dietCODE STATUS: Full code Disposition: Status post CABG x5 on 07/09, 1 chest tube out, 1 chest tube in, on epinephrine, on CRRT, on 2 L oxygen via nasal cannula. PT/OT on board. Continue CVICU care. Quality: Gen Med Crit Care VTE ProphylaxisVTE prophylaxis initiated: yes Current MedicationsCurrent medication review:I attest that the foregoing medication list in the medical record is true, accurate, and complete to the best of my knowledge. Advanced Care Plan 65 or OlderDiscussed with: patientDiscussion included: living will (none), power of school commissioner (none), code status (full code) at 1749 RPT #:[id number] OF REPORTPRProgress [id number] Available for patient [id number] [facility] 2022-07-10 10:05:00 [id number]:05:00 [facility] ([facility])Nephrology Progress NoteREPORT#:[id number] REPORT STATUS: SignedDATE:07/10/22 TIME: 1005 PATIENT: SHERRI ARCE UNIT #: [id number]#: [id number] [address] [birth year] AGE: 81 SEX: M ATTEND: Radha Ward [facility] AUTHOR: Evelina Plaza MD * ALL edits or amendments must be made on the electronic/computer document * SubjectiveChief complaint:has no SOB.On CRRT without issues.. Objective GeneralVS/I O:Vital Signs: Date Time Temp Pulse Resp B/P B/P Pulse O2 O2 Flow FiO2 Mean Ox Delivery Rate 02/03 0800 [...] 100.2 71 29 111/56 77 93 02/02 2029 145/48 68 02/02 2030 100.0 72 29 [...] scale Measurement Method PATIENT WEIGHT: Weight (lb): 202Weight (oz): 13.2Weight (kg): 92.000 MedicationsActive Meds + DC'd Last 24 HrsIpratropium [place] (ATROVENT) 500 MCG RTQ2H PRN PRN INH Albumin Human (ALBUMINAR 5% 12.5GM/250ML) 250 ML ONCE ONE IV (UNV) Furosemide (LASIX 40 mg/4 mL INJECTION) 80 MG ONCE ONE IV Midodrine (PROAMATINE) 2.5 MG 0900,1300,1700 PO Furosemide (LASIX 40 mg/4 mL INJECTION) 60 MG ONCE ONE IV (DC) Lactulose (LACTULOSE) 20 GM DAILY PRN PRN PO Cyanocobalamin (Vitamin B-12 500 mcg tab) 500 MCG DAILY PO Ferrous Sulfate (FERROUS SULFATE) 325 MG DAILY PO Calcium Gluconate/Sodium Chloride (Calcium Gluconate 1 GM/NS 50 mL) 50 ML ONCE ONE IV (DC) Dopamine HCl/Dextrose (DOPamine 400MG/D5W 250ML) 250 ML ASDIR IV Bisacodyl (DULCOLAX) 10 MG ONCE PRN RECTAL Insulin Human Lispro (HUMALOG) 0 AC HS SUBQ (DC) Atorvastatin Calcium (LIPITOR) 40 MG 2100 PO Clopidogrel Bisulfate (Plavix) 75 MG DAILY PO Polyethylene Glycol (MIRALAX) 17 GM DAILY PO Miscellaneous Information (PHARMACY TO DOSE/EVALUATE) 1 EACH ASDIR MISC Calcium Chloride (CALCIUM CHLORIDE) 1 GM ASDIR PRN IV Sodium Chloride (SODIUM CHLORIDE 0.9%) 100 MLCalcium Chloride (CALCIUM CHLORIDE) 2 GM ASDIR PRN IV Sodium Chloride (SODIUM CHLORIDE 0.9%) 100 MLMagnesium Sulfate (MAGNESIUM SULFATE 4GM/SWFI 100ML) 100 ML ASDIR PRN IV Magnesium Sulfate (MAGNESIUM SULFATE 2GM/SWFI 50ML) 50 ML ASDIR PRN IV Miscellaneous (PRISMASATE BGK 4/2.5 SOLUTION) 5,000 ML ASDIR DIALYSIS Potassium Chloride (KCL 10MEQ/SWFI 50ML) 50 ML ASDIR PRN IV Sodium Chloride (SODIUM CHLORIDE 0.9%) 2,000 ML ASDIR PRN IV Sodium Phosphate (SODIUM PHOSPHATE) 25 MMOL ASDIR PRN IV Sodium Chloride (SODIUM CHLORIDE 0.9%) 250 MLSodium Phosphate (SODIUM PHOSPHATE) 20 MMOL ASDIR PRN IV Sodium Chloride (SODIUM CHLORIDE 0.9%) 250 MLSodium Phosphate (SODIUM PHOSPHATE) 15 MMOL ASDIR PRN IV Sodium Chloride (SODIUM CHLORIDE 0.9%) 250 MLPantoprazole (PROTONIX) 40 MG DAILY@0600 PO Aspirin (ASPIRIN) [...] (Senna Lax 8.6 MG TABLET) 17.2 MG BEDTIME PO Ipratropium [place] (ATROVENT) 500 MCG RTQ4H INH Acetaminophen (TYLENOL) 650 MG Q4H PRN PRN PO Acetaminophen (TYLENOL) 650 MG Q4H PRN PRN RECTAL Calcium Chloride (CALCIUM CHLORIDE) 1 GM ASDIR PRN IV Dextrose/Water (DEXTROSE 10% IN WATER) 125 ML ASDIR PRN IV (CKD) Dextrose/Water (DEXTROSE 10% IN WATER) 250 ML ASDIR PRN IV (CKD) Epinephrine (ADRENALIN CHLORIDE) 4 MG ASDIR IV Dextrose/Water (DEXTROSE 5% WATER) 246 MLGlucagon (GLUCAGON) 1 MG ASDIR PRN IM Magnesium Sulfate (MAGNESIUM SULFATE 4GM/SWFI 100ML) 100 ML ASDIR PRN IV Magnesium Sulfate (MAGNESIUM SULFATE 2GM/SWFI 50ML) 50 ML ASDIR PRN IV Magnesium Sulfate/Dextrose (MAGNESIUM SULFATE 1GM/D5W 100ML) 100 ML ASDIR PRN IV Nitroglycerin/Dextrose (NITROGLYCERIN 50,000MCG/D5W 250ML) 250 ML ASDIR IV Norepinephrine Bitartrate (NOREPINEPHRINE 8 MG/NS 250 ML) 250 ML TITRATE IV Ondansetron HCl (ZOFRAN) 4 MG Q6H PRN PRN IV Oxycodone HCl (ROXICODONE) 5 MG Q4H PRN PRN PO Oxycodone HCl (ROXICODONE) 10 MG Q4H PRN PRN PO Potassium Chloride (KCL 20MEQ/SWFI 100ML) 100 ML ASDIR PRN IV Sodium Bicarbonate (SODIUM BICARBONATE) 50 MEQ ASDIR PRN IV Sodium Chloride (SODIUM CHLORIDE 0.9%) 1,000 ML .Q20H IV Sodium Chloride (SODIUM CHLORIDE 0.9%) 250 ML Q24H IV Albumin Human (ALBUMINAR-25%) 12.5 GM ASDIR PRN IV Heparin Sodium (Porcine) (HEPARIN SODIUM) 3,000 UNIT ASDIR PRN DIALYSIS Lidocaine HCl (LIDOCAINE HCL/PF) 0.5 ML ASDIR PRN I-DERMAL (CKD) Mannitol (Mannitol 20%) 12.5 GM ASDIR PRN IV Sodium Chloride (SODIUM CHLORIDE 0.9%) 2,000 ML ASDIR PRN IV Tamsulosin HCl (Flomax 0.4 mg) 0.4 MG BEDTIME PO Physical ExamGeneral appearance: alert, awakeHead/eyes: atraumatic, normocephalicENT: moist mucous membranes, normal noseNeck: non-tender, no JVDExtremities: no edema, no swellingNeuro/GIFT OFFICER: alert, oriented X 3, normal speechSkin: dry, intact ResultsFindings/Data:Laboratory Tests 07/11 07/11 07/11 07/11 1551 0923 0430 0226Blood Gas Puncture Site Art Line Art Line [place] Art Line O2 Saturation (90 - 100 %) 95.2 93.9 91.8 ABG pH (7.35 - 7.45) 7.347 L 7.381 7.375 ABG pCO2 (35.0 - 45 mmHg) 37.9 36.5 40.6 ABG pO2 (80 - 100.0 mmHg) 80.5 71.5 L 64.8 L ABG HCO3 (22.0 - 26.0 MMOL/L) 20.8 L 21.7 L 23.8 ABG Total CO2 22.0 22.8 25.0 ABG Base Excess (-4.0 - 4.0 MMOL/L) -4.8 L -3.4 -1.4 ABG Hematocrit (37.5 - 50.7 %) 27 L 27 L 31 L 27 L ABG [...] - 1.3 mg/dL) 3.8 H 3.6 H 3.6 H POC Glucose (70 - 110 MG/DL) 117 H POC Glucose (mg/dL) (70 - 110 MG/DL) 159 H 122 H 102 Ionized Calcium Tenzin (1.09 - 1.30 MMOL/L) 1.17 07/11hemistry Sodium (134 - 147 mEq/L) 136 137 [...] 8.6 Ionized Calcium Tenzin (1.09 - 1.30 1.14MMOL/L) Magnesium (1.80 - 2.40 mg/dL) 2.89 H [...] (Auto) (14.0 - 32.0 %) 4.2 L Starke % (Auto) (4.8 - 9.0 %) 7.5 Eos % (Auto) (0.3 - 3.7 %) 0.8 Baso % (Auto) (0.0 - 2.0 %) 0.3 Neut # (Auto) (2.0 - 7.6 x10 3/uL) 19.22 H Lymph # (Auto) (1.0 - 3.8 x10 3/uL) 0.93 L Starke # (Auto) (0.1 - 0.8 x10 3/uL) 1.66 H Eos # (Auto) (0.0 - 0.2 x10 3/uL) 0.17 Baso # (Auto) (0.0 - 0.2 x10 3/uL) 0.06 Abs Immat Gran (auto) (0.00 - 0.03 x10 3/uL) 0.19 H Add Manual Diff NO Immature Gran % (0.0 - 2.0 %) 0.9 Nucleated RBC % (0 - 0 %) 0.0 Nucleated RBCs # (Man) (0.0 - 0.1 x10 3/uL) 0.00 Immature Plt Fraction (0.9 - 11.2 %) 6.5 Radiology data:Recent Impressions:RADIOLOGY - XR CHEST 1 V 07/11 3187 Report Impression - Status: SIGNED Entered: 07/11/2022 9130 IMPRESSION: 1. Moderate enlarged cardiac silhouette. 2. Small bilateral pleural effusions. 3. Moderate to severe pulmonary edema versus infiltrates, pneumonia. Progression of opacities within right lower chest. 4. Degenerative and postsurgical changes are demonstrated, as described above. Impression By: [email or web address] - Manuel Vega M.D. Diagnosis, Assessment PlanFree Text A P:Assessment:1-CLAUDETTE likely from urinary retention. oliguric CLAUDETTE now post op, from shock!2- non-STEMI: multivessel disease w main left. S/P CABG X5 on - BPH. Waters catheter is in place.4-severe bilateral hydronephrosis5- shock : Hypotension6-hyperlipidemia7- Lactic acidosis Plan:- unknown Scr baseline. - He underwent LHC on 07/03. Started on HD without UF on 07/04 for clearance- Ultrasound showed severe bilateral hydronephrosis. Continue Waters catheter.- Urology consulted. - s/p CABG X5 on 07/08- hemodynamic support, titrate vasopressors for MAP>65. - on dopamine to improve renal perfusion but still anuric. recommend to increasedopamine dose to vasoconstrictive dose. Will give albumin + diuretic challenge dose. - no emergent need for HD. - continue Waters catheter and strict intake and output Discussed with patient and cardiothoracic surgery team Consultants: cardiology, cardiovascular surgery, nephrology at 1603 RPT #:[id number] OF REPORTPRProgress [id number] Available for patient [id number]:03:28 HCACL 2022-07-10 09:21:00 [id number]:21:00 [facility] ([facility])Critical Care Progress NoteREPORT#:[id number] REPORT STATUS: SignedDATE:07/10/22 TIME: 920 PATIENT: SHERRI ARCE UNIT #: [id number]#: [id number] [address] [birth year] AGE: 81 SEX: M ATTEND: Radha Ward AUTHOR: Edwardo Flannery MD * ALL edits or amendments must be made on the electronic/computer document * SubjectiveChief complaint:CABGHPI:This is 81 years old male with medical history significant for HTN and dyslipidemia who presented to [facility] Thursday06/28/22 with chest pain and found to have a NSTEMI and also acute renal failure. He underwent cardiac cath and was found to have severe CAD including left main disease with EF of 30 to 35% and ischemic cardiomyopathy. Transfer here for CABG evaluation. CV surgery were consulted and the patient earlier today underwent CABG x 5 (MISTRY-LAD, SVG-Ladonna, SVG-OM1< SVG-OM3, SVG-PDA) and ALAA. His intraoperative course was without significant occurrence. The patient was brought to CVICU intubated and ventilated on milrinone drip, norepinephrine drip, epinephrine drip and vasopressin drip.His initial ABG showed metabolic acidosis and he received 2 A of sodium bicarb and 1 g of calcium.The patient started to wake up later in the evening but he looked weak, so he was reversed with neostigmine and glycopyrrolate. His motor strength improved significantly after that and his spontaneous breathing trial was good on the following ABG showed some metabolic acidosis. The patient will be extubated to a BiPAP as his CO2 was high on the ABG. Comments:remains in bedstarted CRRT, 1.5L negativeMaking urine, 10-30/hron epinephrine drip at 2 micCI 3, SvO2 56%given PRBC x2 yesterdayTolerating PO, passing gason insulin gtt Objective GeneralVS/I OLast Documented: Result Date Time B/P 135/46 07/10 [...] Urine 101 322 PATIENT WEIGHT: Weight (lb): 185Weight (oz): 3.01Weight (kg): 84.000 Medications:Active Meds + DC'd Last 24 HrsIpratropium [place] (ATROVENT) 500 MCG RTQ2H PRN PRN INH Cyanocobalamin (Vitamin B-12 500 mcg tab) 500 MCG DAILY PO Ferrous Sulfate (FERROUS SULFATE) 325 MG DAILY PO Bisacodyl (DULCOLAX) 10 MG ONCE PRN RECTAL Magnesium Hydroxide (MILK OF MAGNESIA) 30 ML ONCE PRN PO Insulin Human Lispro (HUMALOG) 0 AC HS SUBQ Calcium Gluconate/Sodium Chloride (Calcium Gluconate 1 GM/NS 50 mL) 50 ML ONCE ONE IV (DC) Calcium Gluconate/Sodium Chloride (Calcium Gluconate 1 GM/NS 50 mL) 50 ML ONCE ONE IV (DC) Atorvastatin Calcium (LIPITOR) 40 MG 2100 PO Calcium Gluconate/Sodium Chloride (Calcium Gluconate 1 GM/NS 50 mL) 50 ML ONCE ONE IV (DC) Clopidogrel Bisulfate (Plavix) 75 MG DAILY PO Polyethylene Glycol (MIRALAX) 17 GM DAILY PO Miscellaneous Information (PHARMACY TO DOSE/EVALUATE) 1 EACH ASDIR MISC Calcium Chloride (CALCIUM CHLORIDE) 1 GM ASDIR PRN IV Sodium Chloride (SODIUM CHLORIDE 0.9%) 100 MLCalcium Chloride (CALCIUM CHLORIDE) 2 GM ASDIR PRN IV Sodium Chloride (SODIUM CHLORIDE 0.9%) 100 MLMagnesium Sulfate (MAGNESIUM SULFATE 4GM/SWFI 100ML) 100 ML ASDIR PRN IV Magnesium Sulfate (MAGNESIUM SULFATE 2GM/SWFI 50ML) 50 ML ASDIR PRN IV Miscellaneous (PRISMASATE BGK 4/2.5 SOLUTION) 5,000 ML ASDIR DIALYSIS Potassium Chloride (KCL 10MEQ/SWFI 50ML) 50 ML ASDIR PRN IV Sodium Chloride (SODIUM CHLORIDE 0.9%) 2,000 ML ASDIR PRN IV Sodium Phosphate (SODIUM PHOSPHATE) 25 MMOL ASDIR PRN IV Sodium Chloride (SODIUM CHLORIDE 0.9%) 250 MLSodium Phosphate (SODIUM PHOSPHATE) 20 MMOL ASDIR PRN IV Sodium Chloride (SODIUM CHLORIDE 0.9%) 250 MLSodium Phosphate (SODIUM PHOSPHATE) 15 MMOL ASDIR PRN IV Sodium Chloride (SODIUM CHLORIDE 0.9%) 250 MLPantoprazole (PROTONIX) 40 MG DAILY@0600 PO Aspirin (ASPIRIN) [...] (Senna Lax 8.6 MG TABLET) 17.2 MG BEDTIME PO Cefazolin Sodium (KEFZOL OR ANCEF) 6 GM ONCE ONE IV (DC) Sodium Chloride (SODIUM CHLORIDE 0.9%) 500 MLIpratropium [place] (ATROVENT) 500 MCG RTQ4H INH Acetaminophen (TYLENOL) 650 MG Q4H PRN PRN PO Acetaminophen (TYLENOL) 650 MG Q4H PRN PRN RECTAL Albumin Human (ALBUMINAR 25%) 25 GM ASDIR PRN IV (DC) Calcium Chloride (CALCIUM CHLORIDE) 1 GM ASDIR PRN IV Dextrose/Water (DEXTROSE 10% IN WATER) 125 ML ASDIR PRN IV (CKD) Dextrose/Water (DEXTROSE 10% IN WATER) 250 ML ASDIR PRN IV (CKD) Epinephrine (ADRENALIN CHLORIDE) 4 MG ASDIR IV Dextrose/Water (DEXTROSE 5% WATER) 246 MLGlucagon (GLUCAGON) 1 MG ASDIR PRN IM Insulin Human Regular (HumuLIN R) 100 UNIT ASDIR IV (DC) Sodium Chloride (SODIUM CHLORIDE 0.9%) 99 MLMagnesium Sulfate (MAGNESIUM SULFATE 4GM/SWFI 100ML) 100 ML ASDIR PRN IV Magnesium Sulfate (MAGNESIUM SULFATE 2GM/SWFI 50ML) 50 ML ASDIR PRN IV Magnesium Sulfate/Dextrose (MAGNESIUM SULFATE 1GM/D5W 100ML) 100 ML ASDIR PRN IV Nitroglycerin/Dextrose (NITROGLYCERIN 50,000MCG/D5W 250ML) 250 ML ASDIR IV Norepinephrine Bitartrate (NOREPINEPHRINE 8 MG/NS 250 ML) 250 ML TITRATE IV Ondansetron HCl (ZOFRAN) 4 MG Q6H PRN PRN IV Oxycodone HCl (ROXICODONE) 5 MG Q4H PRN PRN PO Oxycodone HCl (ROXICODONE) 10 MG Q4H PRN PRN PO Potassium Chloride (KCL 20MEQ/SWFI 100ML) 100 ML ASDIR PRN IV Sodium Bicarbonate (SODIUM BICARBONATE) 50 MEQ ASDIR PRN IV Sodium Chloride (SODIUM CHLORIDE 0.9%) 1,000 ML .Q20H IV Sodium Chloride (SODIUM CHLORIDE 0.9%) 250 ML Q24H IV Albumin Human (ALBUMINAR-25%) 12.5 GM ASDIR PRN IV Heparin Sodium (Porcine) (HEPARIN SODIUM) 3,000 UNIT ASDIR PRN DIALYSIS Lidocaine HCl (LIDOCAINE HCL/PF) 0.5 ML ASDIR PRN I-DERMAL (CKD) Mannitol (Mannitol 20%) 12.5 GM ASDIR PRN IV Sodium Chloride (SODIUM CHLORIDE 0.9%) 2,000 ML ASDIR PRN IV Tamsulosin HCl (Flomax 0.4 mg) 0.4 MG BEDTIME PO ResultsFindings/data:Laboratory Tests 07/10 07/09 07/09 07/09 0328 2349 2130 1840Blood Gas Puncture Site Art Line [place] Ally Art Line R Radial O2 Saturation (90 - 100 %) 91.7 [...] Excess (-4.0 - 4.0 MMOL/L) 2.1 0.2 -0.6 ABG Hematocrit (37.5 - 50.7 %) 24 L 24 L 23 L 25 L ABG Hemoglobin (12.5 - 16.9 G/DL) 8.3 L 8.1 L 7.8 L 8.3 L VBG pH (7.33 - [...] 07/10 07/10 07/10 0559 0515 0330 0328 0218Chemistry Sodium (134 - 147 mEq/L) 141 Potassium [...] 07/09 07/09 07/09 2349 2135 2129 2016 184Chemistry Sodium (134 - 147 mEq/L) 142 Potassium (3.4 - 5.0 mEq/L) 5.0 Chloride (100 - 108 mEq/L) 109 H Carbon Dioxide (21 - 33 mEq/l) 26 Anion Gap (0 - 20) 12 BUN (7 - 18 mg/dL) 27 H Creatinine (0.6 - 1.3 mg/dL) 2.8 H POC Creatinine (0.8 - 1.3 mg/dL) 2.9 H 3.0 H 3.2 H Glomerular Filtr Rate [...] - 32.0 %) 3.6 L 3.9 L Starke % (Auto) (4.8 - 9.0 %) 8.3 7.9 Eos % (Auto) (0.3 - 3.7 %) 0.5 0.0 L Baso % (Auto) (0.0 - 2.0 %) 0.4 0.3 Neut # (Auto) (2.0 - 7.6 x10 3/uL) 20.33 H 18.20 H Lymph # (Auto) (1.0 - 3.8 x10 3/uL) 0.84 L 0.82 L Starke # (Auto) (0.1 - 0.8 x10 3/uL) 1.95 H 1.66 H Eos # (Auto) (0.0 - 0.2 x10 3/uL) 0.12 0.01 Baso # (Auto) (0.0 - 0.2 x10 3/uL) 0.10 0.06 Abs Immat Gran (auto) (0.00 - 0.03 x10 3/uL) 0.17 H 0.16 H Add Manual Diff NO NO Immature Gran % (0.0 - 2.0 %) 0.7 0.8 Nucleated RBC % (0 - 0 %) 0.0 0.0 Nucleated RBCs # (Man) (0.0 - 0.1 x10 3/uL) 0.00 0.00 Laboratory Tests 07/10/22 0330:[Embedded Image Not Available] 07/09/22 2135:[Embedded Image Not Available] 07/09/22 1600:[Embedded Image Not Available] 07/09/22 1235:[Embedded Image Not Available]Microbiology:07/07 2230 NASAL: MSSA Surveillance Screen - ORD07/07 2230 NASAL: MRSA DNA Surveillance Screen - ORD Radiology dataRecent Impressions:RADIOLOGY - XR CHEST 1 V 07/10 525 Report Impression - Status: SIGNED Entered: 07/10/2022 0844 IMPRESSION: 1. Small left apical pneumothorax, new from prior studies with thoracostomy tube in place. 2. Stable pulmonary opacities likely combination of airspace disease and atelectasis. 3. Stable small pleural effusions. 4. Stable postoperative cardiomediastinal silhouette. Impression By: Robert Ratliff M.D. Free Text Obj NotesFree Text Obj Notes:General appearance: Elderly male in no acute distress, interactiveHEENT: atraumatic, normocephalic, moist mucosal membranesNeck: full range of motion, supple/no meningismusCardiovascular: S1-S2 regular rate and rhythmRespiratory: symmetric expansion, no acute respiratory distressAbdomen: soft, non-tender, no distention, no guardingGenitourinary: waters with minimal urineExtremities: pedal pulses palpable, moves all, no cyanosis, mild LE edemaMusculoskeletal: normal inspection, no muscle spasmNeuro/GIFT OFFICER: alert and oriented x3, CNII-XII grossly intact, no motor deficitsSkin: dry, intact and clean surgery dressing Diagnosis, Assessment PlanProblem list/A P: 1. CLAUDETTE (acute kidney injury) 2. CAD (coronary artery disease) 3. Goiter 4. BPH (benign prostatic hyperplasia) 5. Dyslipidemia 6. HTN (hypertension) Free text A P:73-year-old male with Acute pulmonary insufficiency following thoracic surgeryStatus post CABG x 5 (MISTRY-LAD, SVG-Ladonna, SVG-OM1< SVG-OM3, SVG-PDA) and ALAAAcute blood loss anemiaHypotensionIschemic cardiomyopathy, EF 30 to 34%Multivessel CADAKI on hemodialysis Continue mechanical ventilation, vent settings reviewedTitrate FiO2 to keep saturation more than 90%.Spontaneous breathing trial as soon as possibleWean to extubateFollow ABGs and CXRsABG shows metabolic acidosis. Patient received 2 A of sodium bicarb and 1 g of calciumKeep off sedationJudicious pain controlMilrinone drip 0.25Epinephrine dripNorepinephrine dripVasopressin dripTitrate drips to keep MAP more than 65Wean milrinone off first per CV surgeryMinimize fluids per CV surgeryAspirin and PlavixAtorvastatinMetoprololFollow lactate levelMonitor chest tube outputHemodialysis per nephrologyMonitor urine output and kidney functionMonitor and replete electrolytesPerioperative antibioticsCardiac diet with bowel regimen once extubatedBG control with insulin gtt per protocolPT/OTVTE prophylaxis.Stress ulcer prophylaxis.Discussed with CV surgery, anesthesia and ICU teamCritical care time 85 minutes 2/1Appears neuro intact, multimodal pain control, minimize narcotic use, no CO2 narcosisExtubated successfully, sats well on NC, wean O2, monitor for hypercapnia, encourage I-S, obtain serial ABGs, CXR reviewedHD unstable, weaning vasopressors and inotrope, monitor HD parameters, low CVP, lactic acidosis with uptrending lactate, gentle volume resuscitationOliguric CLAUDETTE, plan for CRRT per renal, hyperkalemia treated, obtain serial labPO challenge, bowel regimen, serial abdominal exam, monitor LFTsLeukocytosis postop, likely reactive, trend WBC, s/p antibiotic course for UTI ,periop antibioticsHgb trending down, no evidence of active bleed, monitor CTs output, RBC given HDinstabilityBlood glucose control with insulin drip per protocolEncourage PT/OT and activity as toleratedDVT and GI prophylaxis with DAPT and PPI 2/2Appears neuro intact, multimodal pain control, minimize narcotic usesats well on NC, wean O2, encourage I-S, PT and CXR reviewedHD fairly stable, on minimal vasopressor support, lactic acidosis cleared s/p resuscitationOliguric CLAUDETTE, tolerated CRRT, holding off per renal, monitor UOP and electrolytes closelyOral diet as tolerated, bowel regimen, monitor LFTsLeukocytosis postop, trend WBC, treated for UTI preopHgb responded to PRBC, no evidence of active bleed, minimal CTs outputBlood glucose control, transitioned insulin drip to SSIEncourage PT/OT and out of bed as toleratedDVT and GI prophylaxis with DAPT and PPI Consultants: cardiology, cardiovascular surgery, nephrologyPlan discussed with: patient, consultants, nurse, interdisc care team, pharmacy/pharmacistCritical care time: Minutes: 39 at 1500 RPT #:[id number] OF REPORTPRProgress [id number] Available for patient [id number]:45 HCACL 2022-07-10 04:37:00 [id number] [address] PATIENT NAME: SHERRI RACE ADMIT DATE: 07/02/22ACCOUNT NO: [id number] ROOM NO: [facility] AGE: 82 REPORT TYPE: eELECTROCARDIOGRAM REPORT SEX: M ADMITTING PHYSICIAN:Jesus Larson MD ATTENDING PHYSICIAN:Srinath Kaur MD Order:[id number] Reason : CABG POD 2 Test Date/Time Stamp:ThuJul 10 2022 04:37:41Blood Pressure : / mmHGVent. Rate : 081 BPM Atrial Rate : 081 BPM P-R Int : 158 ms QRS Dur : 128 ms QT Int : 422 ms P-R-T Axes : 053 018 169 degrees QTc Int : 490 ms Normal sinus rhythmLeft bundle branch blockAbnormal ECGWhen compared with ECG of 09-JUL-2022 04:53,Significant changes have occurredConfirmed by MD RAYMON, [facility] ([id number]) on 05/01/2023 10:05:06 AM Referred By: Self Referred Confirmed by:PROSPER ENNIS MD at 1005 PATIENT NAME: SHERRI ARCE .[id number] for patient [id number]:05:42 [facility] 2022-07-09 18:57:00 [id number] [facility] ([facility])Nephrology Progress NoteREPORT#:[id number] REPORT STATUS: SignedDATE:07/09/22 TIME: 1856 PATIENT: SHERRI ARCE UNIT #: [id number]#: [id number] [place] [facility]DOB: [birth year] AGE: 81 SEX: M ATTEND: Radha Ward AUTHOR: Evelina Plaza MD * ALL edits or amendments must be made on the electronic/computer document * SubjectiveChief complaint:has no SOB. Objective GeneralVS/I O:Vital Signs: Date Time Temp Pulse Resp B/P [...] Urine 150 300 PATIENT WEIGHT: Weight (lb): 185Weight (oz): 3.01Weight (kg): 84.000 MedicationsActive Meds + DC'd Last 24 HrsIpratropium [place] (ATROVENT) 500 MCG RTQ2H PRN PRN INH Cyanocobalamin (Vitamin B-12 500 mcg tab) 500 MCG DAILY PO Ferrous Sulfate (FERROUS SULFATE) 325 MG DAILY PO Bisacodyl (DULCOLAX) 10 MG ONCE PRN RECTAL Magnesium Hydroxide (MILK OF MAGNESIA) 30 ML ONCE PRN PO Atorvastatin Calcium (LIPITOR) 40 MG 2100 PO Calcium Gluconate/Sodium Chloride (Calcium Gluconate 1 GM/NS 50 mL) 50 ML ONCE ONE IV (DC) Clopidogrel Bisulfate (Plavix) 75 MG DAILY PO Polyethylene Glycol (MIRALAX) 17 GM DAILY PO Miscellaneous Information (PHARMACY TO DOSE/EVALUATE) 1 EACH ASDIR MISC Calcium Chloride (CALCIUM CHLORIDE) 1 GM ASDIR PRN IV Sodium Chloride (SODIUM CHLORIDE 0.9%) 100 MLCalcium Chloride (CALCIUM CHLORIDE) 2 GM ASDIR PRN IV Sodium Chloride (SODIUM CHLORIDE 0.9%) 100 MLMagnesium Sulfate (MAGNESIUM SULFATE 4GM/SWFI 100ML) 100 ML ASDIR PRN IV Magnesium Sulfate (MAGNESIUM SULFATE 2GM/SWFI 50ML) 50 ML ASDIR PRN IV Miscellaneous (PRISMASATE BGK 4/2.5 SOLUTION) 5,000 ML ASDIR DIALYSIS Potassium Chloride (KCL 10MEQ/SWFI 50ML) 50 ML ASDIR PRN IV Sodium Chloride (SODIUM CHLORIDE 0.9%) 2,000 ML ASDIR PRN IV Sodium Phosphate (SODIUM PHOSPHATE) 25 MMOL ASDIR PRN IV Sodium Chloride (SODIUM CHLORIDE 0.9%) 250 MLSodium Phosphate (SODIUM PHOSPHATE) 20 MMOL ASDIR PRN IV Sodium Chloride (SODIUM CHLORIDE 0.9%) 250 MLSodium Phosphate (SODIUM PHOSPHATE) 15 MMOL ASDIR PRN IV Sodium Chloride (SODIUM CHLORIDE 0.9%) 250 MLPantoprazole (PROTONIX) 40 MG DAILY@0600 PO Aspirin (ASPIRIN) [...] (Senna Lax 8.6 MG TABLET) 17.2 MG BEDTIME PO Albumin Human (ALBUMINAR-25%) 100 ML .STK-MED ONE IV (DC) Cefazolin Sodium (KEFZOL OR ANCEF) 6 GM ONCE ONE IV (DC) Sodium Chloride (SODIUM CHLORIDE 0.9%) 500 MLIpratropium [place] (ATROVENT) 500 MCG RTQ4H INH Acetaminophen (TYLENOL) 650 MG Q4H PRN PRN PO Acetaminophen (TYLENOL) 650 MG Q4H PRN PRN RECTAL Albumin Human (ALBUMINAR 25%) 25 GM ASDIR PRN IV (DC) Calcium Chloride (CALCIUM CHLORIDE) 1 GM ASDIR PRN IV Dextrose/Water (DEXTROSE 10% IN WATER) 125 ML ASDIR PRN IV (CKD) Dextrose/Water (DEXTROSE 10% IN WATER) 250 ML ASDIR PRN IV (CKD) Epinephrine (ADRENALIN CHLORIDE) 4 MG ASDIR IV Dextrose/Water (DEXTROSE 5% WATER) 246 MLGlucagon (GLUCAGON) 1 MG ASDIR PRN IM Insulin Human Regular (HumuLIN R) 100 UNIT ASDIR IV (CKD) Sodium Chloride (SODIUM CHLORIDE 0.9%) 99 MLMagnesium Sulfate (MAGNESIUM SULFATE 4GM/SWFI 100ML) 100 ML ASDIR PRN IV Magnesium Sulfate (MAGNESIUM SULFATE 2GM/SWFI 50ML) 50 ML ASDIR PRN IV Magnesium Sulfate/Dextrose (MAGNESIUM SULFATE 1GM/D5W 100ML) 100 ML ASDIR PRN IV Morphine Sulfate (morphine SULFATE) 4 MG Q2H PRN PRN IV (DC) Nitroglycerin/Dextrose (NITROGLYCERIN 50,000MCG/D5W 250ML) 250 ML ASDIR IV Norepinephrine Bitartrate (NOREPINEPHRINE 8 MG/NS 250 ML) 250 ML TITRATE IV Ondansetron HCl (ZOFRAN) 4 MG Q6H PRN PRN IV Oxycodone HCl (ROXICODONE) 5 MG Q4H PRN PRN PO Oxycodone HCl (ROXICODONE) 10 MG Q4H PRN PRN PO Potassium Chloride (KCL 20MEQ/SWFI 100ML) 100 ML ASDIR PRN IV Sodium Bicarbonate (SODIUM BICARBONATE) 50 MEQ ASDIR PRN IV Sodium Chloride (SODIUM CHLORIDE 0.9%) 1,000 ML .Q20H IV Sodium Chloride (SODIUM CHLORIDE 0.9%) 250 ML Q24H IV Vancomycin HCl (VANCOMYCIN HCL) 1,250 MG PREOP ONCALL IV (DC) Sodium Chloride (SODIUM CHLORIDE 0.9%) 250 MLVerapamil HCl (ISOPTIN) 16.6 MG .Q24H ONE IV (DC) Heparin Sodium (Porcine) (HEPARIN SODIUM) 1,660 UNIT Sodium Bicarbonate (SODIUM BICARBONATE) 0.7 ML Nitroglycerin/Dextrose (NITROGLYCERIN 50MG/D5W 250ML) 8.3 MG Lactated Ringer's (LACTATED RINGERS) 949.5 MLAcetaminophen (TYLENOL EXTRA STRENGTH) 1,000 MG PREOP ONCALL PO (DC) Sodium Chloride (SODIUM CHLORIDE) 20 ML ASDIR IV (DC) Lidocaine HCl (LIDOCAINE HCL/PF) 2 ML PREOP ONCALL LOCAL (DC) Lidocaine HCl (LIDOCAINE HCL/PF) 2 ML PREOP ONCALL LOCAL (DC) Sodium Chloride (SODIUM CHLORIDE 0.9%) 500 ML PREOP ONCALL IV (DC) Sodium Chloride (SODIUM CHLORIDE 0.9%) 500 ML PREOP ONCALL IV (DC) Sodium Chloride (SODIUM CHLORIDE) 5 ML ASDIR PRN IV (DC) Sodium Chloride (SODIUM CHLORIDE) 10 ML ASDIR PRN IV (DC) Sodium Chloride (SODIUM CHLORIDE 0.9%) 250 ML ASDIR PRN IV (DC) Bisacodyl (DULCOLAX) 10 MG DAILY PRN PRN RECTAL (DC) Polyethylene Glycol (MIRALAX) 17 GM DAILY PO (DC) Senna/Docusate Sodium (SENOKOT S) 2 TAB DAILY PO (DC) Atorvastatin Calcium (LIPITOR) 20 MG BEDTIME PO (DC) Albumin Human (ALBUMINAR-25%) 12.5 GM ASDIR PRN IV Heparin Sodium (Porcine) (HEPARIN SODIUM) 3,000 UNIT ASDIR PRN DIALYSIS Lidocaine HCl (LIDOCAINE HCL/PF) 0.5 ML ASDIR PRN I-DERMAL (CKD) Mannitol (Mannitol 20%) 12.5 GM ASDIR PRN IV Sodium Chloride (SODIUM CHLORIDE 0.9%) 2,000 ML ASDIR PRN IV Sodium Chloride (SODIUM CHLORIDE) 5 ML ASDIR PRN IV (DC) Sodium Chloride (SODIUM CHLORIDE) 10 ML ASDIR PRN IV (DC) Sodium Chloride (SODIUM CHLORIDE 0.9%) 250 ML ASDIR PRN IV (DC) Tamsulosin HCl (Flomax 0.4 mg) 0.4 MG BEDTIME PO Docusate Sodium (COLACE) 100 MG BID PRN PRN PO (DC) Labetalol HCl (LABETALOL HCL) 10 MG Q6H PRN PRN IV (DC) Physical ExamGeneral appearance: alert, awakeHead/eyes: atraumatic, normocephalicENT: moist mucous membranes, normal noseNeck: non-tender, no JVDExtremities: no edema, no swellingNeuro/GIFT OFFICER: alert, oriented X 3, normal speechSkin: dry, intact ResultsFindings/Data:Laboratory Tests 07/09 07/09 07/09 07/09 1840 1018 0333 0306Blood Gas Puncture Site R Radial Art Line [place] Ally Art Line O2 Saturation (90 - [...] %) 25 L 21 L 19 L 21 L ABG Hemoglobin (12.5 - 16.9 G/DL) 8.3 L 7.3 L 6.5 L 7.0 L Marylu Test N/A N/A [...] O2 Delivery Device Room Air Cannula Cannula Cannula 07/08 07/08 07/08 3392 7185 8 Blood Gas Puncture Site Art Line Art Line [place] Ally O2 Saturation (90 - 100 %) [...] - 16.9 G/DL) 7.7 L 8.7 L 8.0 L Marylu Test N/A N/A N/A VBG [...] O2 Delivery Device Cannula Adult Vent Adult Vent Vent Mode PS SIMV FiO2 (%) 50 [...] - 1.3 mg/dL) 3.8 H 4.4 H 4.4 H POC Glucose (70 - 110 MG/DL) 154 H 178 H POC Glucose (mg/dL) (70 - 110 MG/DL) 145 H 229 H 245 H 07/09 07/09 07/09 07/09 07/08 0300 0300 0233 0124 2335Chemistry Sodium (134 - 147 mEq/L) 149 H [...] L Total Alk Phosphatase (20 - 125 40IUnit/L) Total Protein (6.4 - 8.2 g/dL) 5.5 L Albumin (3.4 - 5.0 g/dL) 3.60 07/08 07/08 07/08 07/08 07/08 2234 2151 2045 194 1940Chemistry Sodium (134 - 147 mEq/L) 148 H [...] INR (0.8 - 1.2) 1.5 H PTT ([place]) (25.0 - 39.5 Seconds) 31.3 PT Patient/Control Mix (9.3 - 12.9 SECONDS) 16.2 H Laboratory Tests 07/09 02 1600 0300 [...] - 32.0 %) 3.9 L 1.2 L [place]ke % (Auto) (4.8 - 9.0 %) 7.9 6.6 Eos % (Auto) (0.3 - 3.7 %) 0.0 L 0.0 L Baso % (Auto) (0.0 - 2.0 %) 0.3 0.2 Neut # (Auto) (2.0 - 7.6 x10 3/uL) 18.20 H 22.60 H Lymph # (Auto) (1.0 - 3.8 x10 3/uL) 0.82 L 0.31 L Starke # (Auto) (0.1 - 0.8 x10 3/uL) 1.66 H 1.65 H Eos # (Auto) (0.0 - 0.2 x10 3/uL) 0.01 0.00 Baso # (Auto) (0.0 - 0.2 x10 3/uL) 0.06 0.04 Abs Immat Gran (auto) (0.00 - 0.03 x10 3/uL) 0.16 H 0.29 H Add Manual Diff NO NO Immature Gran % (0.0 - 2.0 %) 0.8 1.2 Nucleated RBC % (0 - 0 %) 0.0 0.0 Nucleated RBCs # (Man) (0.0 - 0.1 x10 3/uL) 0.00 0.00 Platelet Estimate (ADEQUATE THOUSAND) 92 TO [...] (Auto) (14.0 - 32.0 %) 3.5 L Starke % (Auto) (4.8 - 9.0 %) 3.9 L Eos % (Auto) (0.3 - 3.7 %) 1.4 Baso % (Auto) (0.0 - 2.0 %) 0.3 Neut # (Auto) (2.0 - 7.6 x10 3/uL) 34.72 H Lymph # (Auto) (1.0 - 3.8 x10 3/uL) 1.40 Starke # (Auto) (0.1 - 0.8 x10 3/uL) 1.54 H Eos # (Auto) (0.0 - 0.2 x10 3/uL) 0.57 H Baso # (Auto) (0.0 - 0.2 x10 3/uL) 0.12 Abs Immat Gran (auto) (0.00 - 0.03 x10 3/uL) 1.21 H Add Manual Diff NO Immature Gran % (0.0 - 2.0 %) 3.1 H Nucleated RBC % (0 - 0 %) 0.0 Nucleated RBCs # (Man) (0.0 - 0.1 x10 3/uL) 0.00 Radiology data:Recent Impressions:RADIOLOGY - XR CHEST 1 V 07/08 1919 Report Impression - Status: SIGNED Entered: 07/08/20221957 IMPRESSION: Postoperative change with minimal vascular congestion and bibasilar pulmonary opacities. Impression By: Sudhir Strong M.D.RADIOLOGY - XR CHEST 1 V 07/09 0615 Report Impression - Status: SIGNED Entered: 07/09/2022 0956 IMPRESSION: 1. Stable pulmonary opacities likely combination of airspace disease and atelectasis. 2. Stable left basilar pleuroparenchymal changes with small volume pleural effusions. 3. Stable postoperative cardiomediastinal silhouette. Impression By: Robert Ratliff M.D. Diagnosis, Assessment PlanFree Text A P:Assessment:1-CLAUDETTE likely from urinary retention. oliguric CLAUDETTE now post op, from shock!2- non-STEMI: multivessel disease w main left. 3- BPH4-severe bilateral hydronephrosis5- shock : Hypotension6-hyperlipidemia7- Lactic acidosis Plan:-unknown Scr baseline. - He underwent LHC on 07/03. Started on HD without UF on 07/04 for clearance- Ultrasound showed severe bilateral hydronephrosis- s/p CABG 07/08- hemodynamic support, titrate vasopressors for MAP>65. - CRRT with gentle ultrafiltration given hemodynamic instability and up tredninglactic acidosis- continue Waters catheter and strict intake and output Discussed with patient and cardiothoracic surgery team Consultants: cardiology, cardiovascular surgery, nephrology at 1909 RPT #:[id number] OF REPORTPRProgress [id number]:57:[id number] Available for patient [id number]:09:44 HCACL 2022-07-09 12:54:00 [id number]:54:[id number] [facility] ([facility])Cardiothoracic Surgery ProgREPORT#:[id number] REPORT STATUS: SignedDATE:07/09/22 TIME: 1254 PATIENT: SHERRI ARCE UNIT #: [id number]#: [id number] [address] AGE: 81 SEX: M ATTEND: Srinath Kaur [facility] 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 Allergy/Immun:Denies: allergic reaction. Respiratory:Denies: SOB. Cardiovascular:Denies: chest pain, palpitations. GI:Denies: abdominal pain, nausea, vomiting. :Denies: dysuria, hematuria. Heme:Denies: bleeding. Neuro:Denies: dizziness, headache, vision change. All systems rev neg: except as marked Objective GeneralVS/I OLast Documented: Result Date Time Pulse Ox 96 [...] Urine 150 300 PATIENT WEIGHT: Weight (lb): 185Weight (oz): 3.01Weight (kg): 84.000 Dietitian Nutrition assessmentThe data set between the solid lines has been imported from the dietitian's assessment. BMI Calculated: 25.1Nutrition related diagnosis: Nutrition diagnosis details: Nutrition problem: Nutrition etiology: Nutrition signs and symptoms: Nutrition prescription: Dietitian name: Assessment completed: Physical ExamGeneral appearance: alert, awake, orientedWound/incision: Location:sternal Site condition: dressing clean dry, dressing intactHEENT: anicteric, mucosal membranes moistNeck: supple/no meningismusCardiovascular: normal heart sounds, regular rate rhythmRespiratory: aerating well, symmetric expansion, no distressAbdomen: soft, non-tender, no distentionGenitourinary: waters, oN hd Extremities: moves allNeuro/GIFT OFFICER: alert, oriented X 3, normal speech, no motor deficitsPsychiatry: normal affect, normal mood Current MedicationsMedications:Active Meds + DC'd Last 24 HrsIpratropium [place] (ATROVENT) 500 MCG RTQ2H PRN PRN INH Cyanocobalamin (Vitamin B-12 500 mcg tab) 500 MCG DAILY PO Ferrous Sulfate (FERROUS SULFATE) 325 MG DAILY PO Bisacodyl (DULCOLAX) 10 MG ONCE PRN RECTAL Magnesium Hydroxide (MILK OF MAGNESIA) 30 ML ONCE PRN PO Atorvastatin Calcium (LIPITOR) 40 MG 2100 PO Clopidogrel Bisulfate (Plavix) 75 MG DAILY PO Polyethylene Glycol (MIRALAX) 17 GM DAILY PO Miscellaneous Information (PHARMACY TO DOSE/EVALUATE) 1 EACH ASDIR MISC Calcium Chloride (CALCIUM CHLORIDE) 1 GM ASDIR PRN IV Sodium Chloride (SODIUM CHLORIDE 0.9%) 100 MLCalcium Chloride (CALCIUM CHLORIDE) 2 GM ASDIR PRN IV Sodium Chloride (SODIUM CHLORIDE 0.9%) 100 MLMagnesium Sulfate (MAGNESIUM SULFATE 4GM/SWFI 100ML) 100 ML ASDIR PRN IV Magnesium Sulfate (MAGNESIUM SULFATE 2GM/SWFI 50ML) 50 ML ASDIR PRN IV Miscellaneous (PRISMASATE BGK 4/2.5 SOLUTION) 5,000 ML ASDIR DIALYSIS Potassium Chloride (KCL 10MEQ/SWFI 50ML) 50 ML ASDIR PRN IV Sodium Chloride (SODIUM CHLORIDE 0.9%) 2,000 ML ASDIR PRN IV Sodium Phosphate (SODIUM PHOSPHATE) 25 MMOL ASDIR PRN IV Sodium Chloride (SODIUM CHLORIDE 0.9%) 250 MLSodium Phosphate (SODIUM PHOSPHATE) 20 MMOL ASDIR PRN IV Sodium Chloride (SODIUM CHLORIDE 0.9%) 250 MLSodium Phosphate (SODIUM PHOSPHATE) 15 MMOL ASDIR PRN IV Sodium Chloride (SODIUM CHLORIDE 0.9%) 250 MLPantoprazole (PROTONIX) 40 MG DAILY@0600 PO Aspirin (ASPIRIN) [...] (Senna Lax 8.6 MG TABLET) 17.2 MG BEDTIME PO Albumin Human (ALBUMINAR-25%) 100 ML .STK-MED ONE IV (DC) Cefazolin Sodium (KEFZOL OR ANCEF) 6 GM ONCE ONE IV (CKD) Sodium Chloride (SODIUM CHLORIDE 0.9%) 500 MLIpratropium [place] (ATROVENT) 500 MCG RTQ4H INH Acetaminophen (TYLENOL) 650 MG Q4H PRN PRN PO Acetaminophen (TYLENOL) 650 MG Q4H PRN PRN RECTAL Albumin Human (ALBUMINAR 25%) 25 GM ASDIR PRN IV Calcium Chloride (CALCIUM CHLORIDE) 1 GM ASDIR PRN IV Dextrose/Water (DEXTROSE 10% IN WATER) 125 ML ASDIR PRN IV (CKD) Dextrose/Water (DEXTROSE 10% IN WATER) 250 ML ASDIR PRN IV (CKD) Epinephrine (ADRENALIN CHLORIDE) 4 MG ASDIR IV Dextrose/Water (DEXTROSE 5% WATER) 246 MLGlucagon (GLUCAGON) 1 MG ASDIR PRN IM Insulin Human Regular (HumuLIN R) 100 UNIT ASDIR IV (CKD) Sodium Chloride (SODIUM CHLORIDE 0.9%) 99 MLMagnesium Sulfate (MAGNESIUM SULFATE 4GM/SWFI 100ML) 100 ML ASDIR PRN IV Magnesium Sulfate (MAGNESIUM SULFATE 2GM/SWFI 50ML) 50 ML ASDIR PRN IV Magnesium Sulfate/Dextrose (MAGNESIUM SULFATE 1GM/D5W 100ML) 100 ML ASDIR PRN IV Morphine Sulfate (morphine SULFATE) 4 MG Q2H PRN PRN IV (DC) Nitroglycerin/Dextrose (NITROGLYCERIN 50,000MCG/D5W 250ML) 250 ML ASDIR IV Norepinephrine Bitartrate (NOREPINEPHRINE 8 MG/NS 250 ML) 250 ML TITRATE IV Ondansetron HCl (ZOFRAN) 4 MG Q6H PRN PRN IV Oxycodone HCl (ROXICODONE) 5 MG Q4H PRN PRN PO Oxycodone HCl (ROXICODONE) 10 MG Q4H PRN PRN PO Potassium Chloride (KCL 20MEQ/SWFI 100ML) 100 ML ASDIR PRN IV Sodium Bicarbonate (SODIUM BICARBONATE) 50 MEQ ASDIR PRN IV Sodium Chloride (SODIUM CHLORIDE 0.9%) 1,000 ML .Q20H IV Sodium Chloride (SODIUM CHLORIDE 0.9%) 250 ML Q24H IV Rocuronium [place] (ZEMURON) 0 .STK-MED ONE IV (DC) Sodium Chloride (SODIUM CHLORIDE 0.9%) 100 ML .STK-MED ONE IV (DC) Calcium Chloride (CALCIUM CHLORIDE) 0 .STK-MED ONE IV (DC) Milrinone Lactate/Dextrose (MILRINONE 20MG/D5W 100ML) 100 ML .STK-MED ONE IV (DC) Sodium Chloride (SODIUM CHLORIDE) 10 ML .STK-MED ONE IV (DC) Vasopressin (VASOSTRICT) 0 .STK-MED ONE .ROUTE (DC) Vasopressin (VASOSTRICT) 0 .STK-MED ONE .ROUTE (DC) Isoflurane (FORANE) 0 .STK-MED ONE INH (DC) Sodium Chloride (SODIUM CHLORIDE 0.9%) 100 ML .STK-MED ONE IV (DC) Albumin Human (ALBUMINAR-25%) 50 ML .STK-MED ONE IV (DC) Cefazolin Sodium (KEFZOL OR ANCEF) 2 GM PREOP ONCALL IV (DC) Vancomycin HCl (VANCOMYCIN HCL) 1,250 MG PREOP ONCALL IV (DC) Sodium Chloride (SODIUM CHLORIDE 0.9%) 250 MLVerapamil HCl (ISOPTIN) 16.6 MG .Q24H ONE IV (DC) Heparin Sodium (Porcine) (HEPARIN SODIUM) 1,660 UNIT Sodium Bicarbonate (SODIUM BICARBONATE) 0.7 ML Nitroglycerin/Dextrose (NITROGLYCERIN 50MG/D5W 250ML) 8.3 MG Lactated Ringer's (LACTATED RINGERS) 949.5 MLAcetaminophen (TYLENOL EXTRA STRENGTH) 1,000 MG PREOP ONCALL PO (DC) Gabapentin (NEURONTIN) 200 MG PREOP ONCALL PO (DC) Sodium Chloride (SODIUM CHLORIDE) 20 ML ASDIR IV (DC) Lidocaine HCl (LIDOCAINE HCL/PF) 2 ML PREOP ONCALL LOCAL (DC) Lidocaine HCl (LIDOCAINE HCL/PF) 2 ML PREOP ONCALL LOCAL (DC) Sodium Chloride (SODIUM CHLORIDE 0.9%) 500 ML PREOP ONCALL IV (DC) Sodium Chloride (SODIUM CHLORIDE 0.9%) 500 ML PREOP ONCALL IV (DC) Sodium Chloride (SODIUM CHLORIDE) 5 ML ASDIR PRN IV (DC) Sodium Chloride (SODIUM CHLORIDE) 10 ML ASDIR PRN IV (DC) Sodium Chloride (SODIUM CHLORIDE 0.9%) 250 ML ASDIR PRN IV (DC) Bisacodyl (DULCOLAX) 10 MG DAILY PRN PRN RECTAL (DC) Polyethylene Glycol (MIRALAX) 17 GM DAILY PO (DC) Senna/Docusate Sodium (SENOKOT S) 2 TAB DAILY PO (DC) Atorvastatin Calcium (LIPITOR) 20 MG BEDTIME PO (DC) Ceftriaxone Sodium (ROCEPHIN 1000MG VIAL) 1,000 MG Q24H IV (DC) Sodium Chloride (SODIUM CHLORIDE) 10 MLAlbumin Human (ALBUMINAR-25%) 12.5 GM ASDIR PRN IV Heparin Sodium (Porcine) (HEPARIN SODIUM) 3,000 UNIT ASDIR PRN DIALYSIS Lidocaine HCl (LIDOCAINE HCL/PF) 0.5 ML ASDIR PRN I-DERMAL (CKD) Mannitol (Mannitol 20%) 12.5 GM ASDIR PRN IV Sodium Chloride (SODIUM CHLORIDE 0.9%) 2,000 ML ASDIR PRN IV Sodium Chloride (SODIUM CHLORIDE) 5 ML ASDIR PRN IV (DC) Sodium Chloride (SODIUM CHLORIDE) 10 ML ASDIR PRN IV (DC) Sodium Chloride (SODIUM CHLORIDE 0.9%) 250 ML ASDIR PRN IV (DC) Aspirin (ASPIRIN) 81 MG DAILY PO (DC) Metoprolol Tartrate (LOPRESSOR) 12.5 MG BID PO (DC) Tamsulosin HCl (Flomax 0.4 mg) 0.4 MG BEDTIME PO Docusate Sodium (COLACE) 100 MG BID PRN PRN PO (DC) Labetalol HCl (LABETALOL HCL) 10 MG Q6H PRN PRN IV (DC) Ondansetron HCl (ZOFRAN) 4 MG Q4H PRN PRN IV (DC) ResultsFindings/Data:Laboratory Tests 07/09 07/09 07/09 07/08 1018 0333 0306 2335Blood Gas Puncture Site Art Line [place] Al[place] Art Line Art Line O2 Saturation [...] %) 21 L 19 L 21 L 23 L ABG Hemoglobin (12.5 - 16.9 G/DL) 7.3 L 6.5 L 7.0 L 7.7 L Marylu Test N/A N/A [...] mmol/L) 109 H 112 H 110 H 114 H Ionized Calcium (1.12 - 1.32 MMOL/L) 1.16 1.20 1.23 1.18 Lactic Acid (0.9 - 1.7 mmol/l) 2.0 H 5.9 *H 6.1 *H 5.1 *H Temperature (F) 98.6 98.6 O2 Delivery Device Cannula Cannula Cannula Cannula 07/08 Blood Gas Puncture Site Art Line [place] Al[place] Art Line O2 Saturation (90 - [...] - 16.9 G/DL) 8.7 L 8.0 L 8.3 L Marylu Test N/A N/A VBG pH [...] (90 - 100 %) 99.9 100.0 99.9 100.0 ABG pH (7.35 - 7.45) 7.313 L 7.432 7.401 7.355 ABG pCO2 (35.0 - 45 mmHg) 36.8 33.6 L 33.4 L 43.3 ABG pO2 (80 - 100.0 mmHg) 375.0 *H 404.5 *H 327.7 *H 469.8 *H ABG HCO3 (22.0 - 26.0 MMOL/L) 18.7 L 22.4 20.7 L 24.2 ABG Total CO2 19.8 23.4 21.7 25.5 ABG Base Excess (-4.0 - 4.0 MMOL/L) -6.9 L -1.6 -3.6 -1.3 ABG Hematocrit (37.5 - 50.7 %) 22 L 23 L 25 L 25 L ABG Hemoglobin (12.5 - 16.9 G/DL) 7.5 L 7.7 L 8.6 L 8.4 L Sodium (134 - 147 mmol/L) 147 144 142 142 Potassium (3.4 - 5.0 mmol/L) 3.7 5.0 4.7 4.6 Chloride (100 - 108 mmol/L) 117 H 109 H 110 H 108 Ionized Calcium (1.12 - 1.32 MMOL/L) 1.06 L 1.03 L 1.04 L 1.06 L Lactic Acid [...] 07/09 07/09 07/09 0306 0300 0300 0233 0124Chemistry Sodium (134 - 147 mEq/L) 149 H [...] - 1.3 mg/dL) 4.1 H 3.9 H 3.9 H POC Glucose (mg/dL) (70 - 110 MG/DL) 234 H 206 H 190 H Lactic Acid (0.4 - 1.9 mmol/l) 5.0 *H 2.1 H 07/080 1934 1843 1748 1719 Chemistry Sodium (134 - 147 mEq/L) 148 H Potassium (3.4 - 5.0 mEq/L) 4.0 Chloride (100 - 108 mEq/L) 114 H Carbon Dioxide (21 - 33 mEq/l) 22 Anion Gap (0 - 20) 16 BUN (7 - 18 mg/dL) 37 H Creatinine (0.6 - 1.3 mg/dL) 4.1 H POC Creatinine (0.8 - 1.3 mg/dL) 3.9 H 3.9 H 4.0 H 4.3 H Glomerular Filtr Rate (70 [...] - 1.3 mg/dL) 4.0 H 4.6 H 4.0 H POC Glucose (mg/dL) (70 - 110 MG/DL) 169 H 141 H 88 Laboratory Tests 07/08 1845 1750 1721 1643Coagulation INR (0.8 - 1.2) 1.5 H PTT (Agus) (25.0 - 39.5 Seconds) 31.3 PT Patient/Control Mix (9.3 - 12.9 16.2 HSECONDS) Activated Coag Time (74 - 137 SEC) [...] - 32.0 %) 1.2 L 3.5 L Starke % (Auto) (4.8 - 9.0 %) 6.6 3.9 L Eos % (Auto) (0.3 - 3.7 %) 0.0 L 1.4 Baso % (Auto) (0.0 - 2.0 %) 0.2 0.3 Neut # (Auto) (2.0 - 7.6 x10 3/uL) 22.60 H 34.72 H Lymph # (Auto) (1.0 - 3.8 x10 3/uL) 0.31 L 1.40 Starke # (Auto) (0.1 - 0.8 x10 3/uL) 1.65 H 1.54 H Eos # (Auto) (0.0 - 0.2 x10 3/uL) 0.00 0.57 H Baso # (Auto) (0.0 - 0.2 x10 3/uL) 0.04 0.12 Abs Immat Gran (auto) (0.00 - 0.03 x10 3/uL) 0.29 H 1.21 H Add Manual Diff NO NO Immature Gran % (0.0 - 2.0 %) 1.2 3.1 H Nucleated RBC % (0 - 0 %) 0.0 0.0 Nucleated RBCs # (Man) (0.0 - 0.1 x10 3/uL) 0.00 0.00 Platelet Estimate (ADEQUATE THOUSAND) 92 TO 115 Plt Morphology Comment LARGE PLATELETS Radiology data:Recent Impressions:RADIOLOGY - XR CHEST 1 V 07/08 1919 Report Impression - Status: SIGNED Entered: 07/08/20221957 IMPRESSION: Postoperative change with minimal vascular congestion and bibasilar pulmonary opacities. Impression By: Sudhir Strong M.D.RADIOLOGY - XR CHEST 1 V 07/09 0615 Report Impression - Status: SIGNED Entered: 07/09/2022 0956 IMPRESSION: 1. Stable pulmonary opacities likely combination of airspace disease and atelectasis. 2. Stable left basilar pleuroparenchymal changes with small volume pleural effusions. 3. Stable postoperative cardiomediastinal silhouette. Impression By: Robert Ratliff M.D. Results: labs reviewed, vital signs stable, rythm personally rev'd, x-ray personally reviewed, current med profile rev'd Quality: Trauma Gen Surg Advanced Care Plan 65 or OlderDiscussed with: patientDiscussion included: living will (none), power of school commissioner (none), code status (full code) VTE Prophylaxis - GeneralVTE prophylaxis initiated: yes Diagnosis, Assessment PlanHospital course to date:This is a 81-year-old gentleman who presented to an outside hospital with complaints of chest pains while walking at his home on Thursday. He denies any previous history of coronary artery disease or other [place]. He was seen and evaluated at [facility]. He was found to have a urinary tract infection with urinary retention and acute kidney. He was started on dialysis via a left femoral temporary catheter. He underwent dialysis on Thursday, Thursday. Renal has been consultedDuring his work-up at outside hospital he underwent Left heart catheterization showing severe Left Main 70%. LAD: Proximal diffuse 80% stenosis and then diffuse 60% in the midsegment and on the distal segment, there is focal 70% stenosis. Diagonal branches with luminal irregularities. Left circumflex, codominant circulation with proximal 80%, mid 80 to 90% and then in the OM, there is proximal 60%, distal left circumflex has a 70% stenosis. RCA large and dominant with proximal 40% stenosis, mid 60% stenosis and then diffuse 50% stenosis all the way distally and the PLV and the PDA with luminal irregularities. CV surgery consulted for evaluation for coronary bypass graft. CAROTIDS- No carotid stenosis CT chest complete IMPRESSION: Small bilateral pleural effusions with bibasilar atelectasis. Echo:1. Left ventricle: The cavity size is at the upper limits of normal. Wall thickness is mildly increased. Systolic function is severely reduced. The estimated ejection fraction is 30-34%. Moderate hypokinesis of the entire myocardium. Doppler parameters are consistent with abnormal left ventricular relaxation (grade 1 diastolic dysfunction).2. Pericardium, extracardiac: A small pericardial effusion is identified along the left ventricular free wall, along the right ventricular free wall, and along the right atrial free wall. Assessment/Plan1) CAD Mutlivessel Will obtain echo,carotids. 2) CLAUDETTE Started dialysis on Creatine 7.3 Renal consulted. 3) BPH- Urinary retention. Waters in place Workup for CABG underway. Will get functional assessment with PT. PFT pending Carotid dopplers- No disease Echo PendingDialyiss per Renal. Baseline Cr unknown. 07/04 07/04 Doing well today, alert, up in the chair. Denies chest painEchocardiogram showed LVEF 30 to 34%, mild MR, trivial TRCT chest images reviewedEncourage I-S and mobilizationCreatinine 5.5 from 7.3, good urine output. Renal US showed bilateral severe hydronephrosis. Plan for HD today and tomorrow Will tentatively schedule patient for surgery on Thursday.Patient seen and plan reviewed with Dr Schwarz 07/05 Remains in a stable condition, denies chest pain BUN 53, creatinine 5.4. Plan for hemodialysis today and tomorrow for clearanceHe is also on Lasix 20 mg IV twice daily, urine output 1.1 L overnightWe will calculate risk of surgery with STS scoreEncourage I-S and mobilizationWill tentatively schedule patient for surgery on Thursday.Pt seen and plan reviewed with Dr Schwarz 07/06 BUN 36, creatinine 4.4. Plan for hemodialysis todayAwaiting CABG tomorrowSurgery, risks involved, STS score, benefits, complications and alternatives were explained to the patient. He acknowledged understanding and is willing to proceedN.p.o. after midnightPatient seen and plan reviewed with Dr. Schwarz 07/09/22POD 1CABG x 5 (MISTRY-LAD, SVG-Ladonna, SVG-OM1< SVG-OM3, SVG-PDA), RC ESPINOZA (RGSV)Patient hemodynamically unstable, on epi at 4, and vaso .04, decreased uop overnight- 150ccStarted patient on CRRT 2k/3.5Wean epi as tolerated, Cardiac incex 2.8-3labs and chest x-ray reviewed, electrolytes stable, hgb 6.5- transfuse 2 units PRBCOn 4l nasal cannula- encourage incentive spirometer and deep breathingKeep both chest tubes and monitor outputsGlycemic control on insulin dripCardiac dietBowel regimen protocolPain managementSCDs for DVT and PPI for GI prophylaxisPT/OTMonitor patient closely in CVICUPlan of care discussed with Dr. Schwarz Consultants: cardiology, cardiovascular surgery, nephrology at 1535 at 1943 RPT #:[id number] OF REPORTPRProgress [id number]:54:[id number] Available for patient [id number]:35:33 [facility] 2022-07-09 11:40:00 [id number] [place] [address] PATIENT NAME: SHERRI ARCE ADMIT DATE: 07/02/22ACCOUNT NO: [id number] ROOM NO: [facility] AGE: 81 REPORT TYPE: OPERATIVE REPORT SEX: M ADMITTING PHYSICIAN:Radha Ward MD ATTENDING PHYSICIAN:Sarbjit Mcarthur MD OPERATION DATE: 07/08/2022 PREOPERATIVE DIAGNOSIS: Coronary artery disease. POSTOPERATIVE DIAGNOSIS: Coronary artery disease. PROCEDURE: Urgent coronary artery bypass grafting. SURGEON: Lina Schwarz M.D. PENSION CONSULTANT: Renny Rodríguez M.D. ANESTHESIA: PROCEDURE IN DETAIL: Please refer to the detailed operative note by Dr. Schwarz. I assisted Dr. Schwarz during all critical portions of surgery, conduits, cardiopulmonary bypass, coronary anastomosis. The cardiac surgeon number 2 was necessary for completing this complex operation safely by helping to provide exposure, maintain hemostasis and performing the difficult coronary grafts. Dictated By: Renny Rodríguez MD Date Dictated: 07/09/2022 11:40:34Date Transcribed: 07/09/2022 12:32:35KM/MANJob #: [id number] ID: [id number] by Renny Rodríguez MD, FACS On 07/17/2022 07:44:37 PM at 0744 PATIENT NAME: SHERRI ARCE [id number] VAvailable for patient [id number] [facility] 2022-07-09 11:09:00 [id number] [facility] ([facility])Hospitalist Progress NoteREPORT#:[id number] REPORT STATUS: SignedDATE:07/09/22 TIME: 1109 PATIENT: SHERRI ARCE UNIT #: [id number]#: [id number] [address] AGE: 81 SEX: M ATTEND: Radha Ward [facility] AUTHOR: Radha Ward MD * ALL edits or amendments must be made on the electronic/computer document * SubjectiveChief complaint:Status post CABG x5 yesterday, chest tube in place, on 2 L oxygen via nasal cannula, on epinephrine and vasopressin, plan for CRRT today, 2 PRBC BT ordered,Waters catheter in place, diet ordered. Pain controlled.HPI:81 y/o man with PMHx of HTN, Dyslipidemia that [facility] with chest pain and found to have a NSTEMI and also acute renal failure. Underwent cardiac cath yesterday and found to have severe CAD including left main disease. Transfer here for CABG evaluation. He also underwent HD Thursday and Thursday of this week. HD catheter was place at [facility]. Currently not having any chest pain. Had chest pain with SOB when he presentted to the previous hospital. Objective GeneralVS/I O:Vital Signs: Date Time Temp Pulse Resp B/P B/P Pulse O2 O2 Flow FiO2 Mean Ox Delivery Rate 02/ 1330 102/36 53 02/01 1330 98.6 74 [...] Urine 150 300 PATIENT WEIGHT: Weight (lb): 185Weight (oz): 3.01Weight (kg): 84.000 Medications:Active Meds + DC'd Last 24 HrsIpratropium [place] (ATROVENT) 500 MCG RTQ2H PRN PRN INH Cyanocobalamin (Vitamin B-12 500 mcg tab) 500 MCG DAILY PO Ferrous Sulfate (FERROUS SULFATE) 325 MG DAILY PO Bisacodyl (DULCOLAX) 10 MG ONCE PRN RECTAL Magnesium Hydroxide (MILK OF MAGNESIA) 30 ML ONCE PRN PO Atorvastatin Calcium (LIPITOR) 40 MG 2100 PO Calcium Gluconate/Sodium Chloride (Calcium Gluconate 1 GM/NS 50 mL) 50 ML ONCE ONE IV (UNV) Clopidogrel Bisulfate (Plavix) 75 MG DAILY PO Polyethylene Glycol (MIRALAX) 17 GM DAILY PO Miscellaneous Information (PHARMACY TO DOSE/EVALUATE) 1 EACH ASDIR MISC Calcium Chloride (CALCIUM CHLORIDE) 1 GM ASDIR PRN IV Sodium Chloride (SODIUM CHLORIDE 0.9%) 100 MLCalcium Chloride (CALCIUM CHLORIDE) 2 GM ASDIR PRN IV Sodium Chloride (SODIUM CHLORIDE 0.9%) 100 MLMagnesium Sulfate (MAGNESIUM SULFATE 4GM/SWFI 100ML) 100 ML ASDIR PRN IV Magnesium Sulfate (MAGNESIUM SULFATE 2GM/SWFI 50ML) 50 ML ASDIR PRN IV Miscellaneous (PRISMASATE BGK 4/2.5 SOLUTION) 5,000 ML ASDIR DIALYSIS Potassium Chloride (KCL 10MEQ/SWFI 50ML) 50 ML ASDIR PRN IV Sodium Chloride (SODIUM CHLORIDE 0.9%) 2,000 ML ASDIR PRN IV Sodium Phosphate (SODIUM PHOSPHATE) 25 MMOL ASDIR PRN IV Sodium Chloride (SODIUM CHLORIDE 0.9%) 250 MLSodium Phosphate (SODIUM PHOSPHATE) 20 MMOL ASDIR PRN IV Sodium Chloride (SODIUM CHLORIDE 0.9%) 250 MLSodium Phosphate (SODIUM PHOSPHATE) 15 MMOL ASDIR PRN IV Sodium Chloride (SODIUM CHLORIDE 0.9%) 250 MLPantoprazole (PROTONIX) 40 MG DAILY@0600 PO Aspirin (ASPIRIN) [...] (Senna Lax 8.6 MG TABLET) 17.2 MG BEDTIME PO Albumin Human (ALBUMINAR-25%) 100 ML .STK-MED ONE IV (DC) Cefazolin Sodium (KEFZOL OR ANCEF) 6 GM ONCE ONE IV (CKD) Sodium Chloride (SODIUM CHLORIDE 0.9%) 500 MLIpratropium [place] (ATROVENT) 500 MCG RTQ4H INH Acetaminophen (TYLENOL) 650 MG Q4H PRN PRN PO Acetaminophen (TYLENOL) 650 MG Q4H PRN PRN RECTAL Albumin Human (ALBUMINAR 25%) 25 GM ASDIR PRN IV Calcium Chloride (CALCIUM CHLORIDE) 1 GM ASDIR PRN IV Dextrose/Water (DEXTROSE 10% IN WATER) 125 ML ASDIR PRN IV (CKD) Dextrose/Water (DEXTROSE 10% IN WATER) 250 ML ASDIR PRN IV (CKD) Epinephrine (ADRENALIN CHLORIDE) 4 MG ASDIR IV Dextrose/Water (DEXTROSE 5% WATER) 246 MLGlucagon (GLUCAGON) 1 MG ASDIR PRN IM Insulin Human Regular (HumuLIN R) 100 UNIT ASDIR IV (CKD) Sodium Chloride (SODIUM CHLORIDE 0.9%) 99 MLMagnesium Sulfate (MAGNESIUM SULFATE 4GM/SWFI 100ML) 100 ML ASDIR PRN IV Magnesium Sulfate (MAGNESIUM SULFATE 2GM/SWFI 50ML) 50 ML ASDIR PRN IV Magnesium Sulfate/Dextrose (MAGNESIUM SULFATE 1GM/D5W 100ML) 100 ML ASDIR PRN IV Morphine Sulfate (morphine SULFATE) 4 MG Q2H PRN PRN IV (DC) Nitroglycerin/Dextrose (NITROGLYCERIN 50,000MCG/D5W 250ML) 250 ML ASDIR IV Norepinephrine Bitartrate (NOREPINEPHRINE 8 MG/NS 250 ML) 250 ML TITRATE IV Ondansetron HCl (ZOFRAN) 4 MG Q6H PRN PRN IV Oxycodone HCl (ROXICODONE) 5 MG Q4H PRN PRN PO Oxycodone HCl (ROXICODONE) 10 MG Q4H PRN PRN PO Potassium Chloride (KCL 20MEQ/SWFI 100ML) 100 ML ASDIR PRN IV Sodium Bicarbonate (SODIUM BICARBONATE) 50 MEQ ASDIR PRN IV Sodium Chloride (SODIUM CHLORIDE 0.9%) 1,000 ML .Q20H IV Sodium Chloride (SODIUM CHLORIDE 0.9%) 250 ML Q24H IV Rocuronium [place] (ZEMURON) 0 .STK-MED ONE IV (DC) Sodium Chloride (SODIUM CHLORIDE 0.9%) 100 ML .STK-MED ONE IV (DC) Calcium Chloride (CALCIUM CHLORIDE) 0 .STK-MED ONE IV (DC) Milrinone Lactate/Dextrose (MILRINONE 20MG/D5W 100ML) 100 ML .STK-MED ONE IV (DC) Sodium Chloride (SODIUM CHLORIDE) 10 ML .STK-MED ONE IV (DC) Vasopressin (VASOSTRICT) 0 .STK-MED ONE .ROUTE (DC) Vasopressin (VASOSTRICT) 0 .STK-MED ONE .ROUTE (DC) Isoflurane (FORANE) 0 .STK-MED ONE INH (DC) Sodium Chloride (SODIUM CHLORIDE 0.9%) 100 ML .STK-MED ONE IV (DC) Albumin Human (ALBUMINAR-25%) 50 ML .STK-MED ONE IV (DC) Cefazolin Sodium (KEFZOL OR ANCEF) 2 GM PREOP ONCALL IV (DC) Vancomycin HCl (VANCOMYCIN HCL) 1,250 MG PREOP ONCALL IV (DC) Sodium Chloride (SODIUM CHLORIDE 0.9%) 250 MLVerapamil HCl (ISOPTIN) 16.6 MG .Q24H ONE IV (DC) Heparin Sodium (Porcine) (HEPARIN SODIUM) 1,660 UNIT Sodium Bicarbonate (SODIUM BICARBONATE) 0.7 ML Nitroglycerin/Dextrose (NITROGLYCERIN 50MG/D5W 250ML) 8.3 MG Lactated Ringer's (LACTATED RINGERS) 949.5 MLAcetaminophen (TYLENOL EXTRA STRENGTH) 1,000 MG PREOP ONCALL PO (DC) Gabapentin (NEURONTIN) 200 MG PREOP ONCALL PO (DC) Sodium Chloride (SODIUM CHLORIDE) 20 ML ASDIR IV (DC) Lidocaine HCl (LIDOCAINE HCL/PF) 2 ML PREOP ONCALL LOCAL (DC) Lidocaine HCl (LIDOCAINE HCL/PF) 2 ML PREOP ONCALL LOCAL (DC) Sodium Chloride (SODIUM CHLORIDE 0.9%) 500 ML PREOP ONCALL IV (DC) Sodium Chloride (SODIUM CHLORIDE 0.9%) 500 ML PREOP ONCALL IV (DC) Sodium Chloride (SODIUM CHLORIDE) 5 ML ASDIR PRN IV (DC) Sodium Chloride (SODIUM CHLORIDE) 10 ML ASDIR PRN IV (DC) Sodium Chloride (SODIUM CHLORIDE 0.9%) 250 ML ASDIR PRN IV (DC) Bisacodyl (DULCOLAX) 10 MG DAILY PRN PRN RECTAL (DC) Polyethylene Glycol (MIRALAX) 17 GM DAILY PO (DC) Senna/Docusate Sodium (SENOKOT S) 2 TAB DAILY PO (DC) Atorvastatin Calcium (LIPITOR) 20 MG BEDTIME PO (DC) Ceftriaxone Sodium (ROCEPHIN 1000MG VIAL) 1,000 MG Q24H IV (DC) Sodium Chloride (SODIUM CHLORIDE) 10 MLAlbumin Human (ALBUMINAR-25%) 12.5 GM ASDIR PRN IV Heparin Sodium (Porcine) (HEPARIN SODIUM) 3,000 UNIT ASDIR PRN DIALYSIS Lidocaine HCl (LIDOCAINE HCL/PF) 0.5 ML ASDIR PRN I-DERMAL (CKD) Mannitol (Mannitol 20%) 12.5 GM ASDIR PRN IV Sodium Chloride (SODIUM CHLORIDE 0.9%) 2,000 ML ASDIR PRN IV Sodium Chloride (SODIUM CHLORIDE) 5 ML ASDIR PRN IV (DC) Sodium Chloride (SODIUM CHLORIDE) 10 ML ASDIR PRN IV (DC) Sodium Chloride (SODIUM CHLORIDE 0.9%) 250 ML ASDIR PRN IV (DC) Aspirin (ASPIRIN) 81 MG DAILY PO (DC) Metoprolol Tartrate (LOPRESSOR) 12.5 MG BID PO (DC) Tamsulosin HCl (Flomax 0.4 mg) 0.4 MG BEDTIME PO Docusate Sodium (COLACE) 100 MG BID PRN PRN PO (DC) Labetalol HCl (LABETALOL HCL) 10 MG Q6H PRN PRN IV (DC) Ondansetron HCl (ZOFRAN) 4 MG Q4H PRN PRN IV (DC) Physical ExamGeneral appearance: alert, awake, orientedHead/Eyes: atraumatic, EOMI, normal conjunctiva/sclera, normocephalic, PERRLAENT: moist mucosal membranesNeck: full range of motion, no bruit/NL carotids, no JVDCardiovascular: normal heart sounds, regular rate rhythmRespiratory: aerating well, clear to auscultation, symmetric expansion, no distressAbdomen: non-tender, normal bowel sounds, soft, no distention, no guarding, no reboundExtremities: moves all, no cyanosis, no edemaMusculoskeletal: normal inspectionNeuro/GIFT OFFICER: alert, oriented X 3, normal speech, no motor deficits, no sensory deficitsSkin: intact, normal color, no rashPsychiatry: normal affect ResultsFindings/Data:Laboratory Tests 07/09 07/09 07/09 07/08 1018 0333 0306 2335Blood Gas Puncture Site Art Line [place] Art Line Art Line O2 Saturation [...] %) 21 L 19 L 21 L 23 L ABG Hemoglobin (12.5 - 16.9 G/DL) 7.3 L 6.5 L 7.0 L 7.7 L Marylu Test N/A N/A [...] mmol/L) 109 H 112 H 110 H 114 H Ionized Calcium (1.12 - 1.32 MMOL/L) 1.16 1.20 1.23 1.18 Lactic Acid (0.9 - 1.7 mmol/l) 2.0 H 5.9 *H 6.1 *H 5.1 *H Temperature (F) 98.6 98.6 O2 Delivery Device Cannula Cannula Cannula Cannula 07/08 Blood Gas Puncture Site Art Line [place] Art Line O2 Saturation (90 - [...] - 16.9 G/DL) 8.7 L 8.0 L 8.3 L Marylu Test N/A N/A VBG pH [...] (cmH2O) 5 5 5 Pressure Support (cmH2O) 10 07/08 07/08 07/08 07/08 1843 1748 1719 1641 Blood Gas O2 Saturation (90 - 100 %) 99.9 100.0 99.9 100.0 ABG pH (7.35 - 7.45) 7.313 L 7.432 7.401 7.355 ABG pCO2 (35.0 - 45 mmHg) 36.8 33.6 L 33.4 L 43.3 ABG pO2 (80 - 100.0 mmHg) 375.0 *H 404.5 *H 327.7 *H 469.8 *H ABG HCO3 (22.0 - 26.0 MMOL/L) 18.7 L 22.4 20.7 L 24.2 ABG Total CO2 19.8 23.4 21.7 25.5 ABG Base Excess (-4.0 - 4.0 MMOL/L) -6.9 L -1.6 -3.6 -1.3 ABG Hematocrit (37.5 - 50.7 %) 22 L 23 L 25 L 25 L ABG Hemoglobin (12.5 - 16.9 G/DL) 7.5 L 7.7 L 8.6 L 8.4 L Sodium (134 - 147 mmol/L) 147 144 142 142 Potassium (3.4 - 5.0 mmol/L) 3.7 5.0 4.7 4.6 Chloride (100 - 108 mmol/L) 117 H 109 H 110 H 108 Ionized Calcium (1.12 - 1.32 MMOL/L) 1.06 L 1.03 L 1.04 L 1.06 L Lactic Acid [...] 07/09 07/09 07/09 07/09 1245 1235 1018 0844 0739Chemistry Sodium (134 - 147 mEq/L) 145 Potassium [...] 07/09 07/09 07/09 0333 0306 0300 0300 0233Chemistry Sodium (134 - 147 mEq/L) 149 H [...] - 1.3 mg/dL) 4.1 H 3.9 H 3.9 H POC Glucose (mg/dL) (70 - 110 MG/DL) 234 H 206 H 190 H Lactic Acid (0.4 - 1.9 mmol/L) 6.6 *H 5.0 *H 07/08 07/08 07/08 07/08 07/08 1940 1940 1934 1843 1748 Chemistry Sodium (134 - 147 mEq/L) 148 H Potassium (3.4 - 5.0 mEq/L) 4.0 Chloride (100 - 108 mEq/L) 114 H Carbon Dioxide (21 - 33 mEq/l) 22 Anion Gap (0 - 20) 16 BUN (7 - 18 mg/dL) 37 H Creatinine (0.6 - 1.3 mg/dL) 4.1 H POC Creatinine (0.8 - 1.3 mg/dL) 3.9 H 3.9 H 4.0 H Glomerular Filtr Rate (70 [...] - 1.3 mg/dL) 4.3 H 4.0 H 4.6 H 4.0 H POC Glucose (mg/dL) (70 - 110 MG/DL) 171 H 169 H 141 H 88 Laboratory Tests 07/08 07/08 07/08 07/08 07/08 1940 1845 1750 1721 1643Coagulation INR (0.8 - 1.2) 1.5 H PTT (Agus) (25.0 - 39.5 Seconds) 31.3 PT Patient/Control Mix (9.3 - 12.9 16.2 HSECONDS) Activated Coag Time (74 - 137 SEC) [...] - 32.0 %) 1.2 L 3.5 L Starke % (Auto) (4.8 - 9.0 %) 6.6 3.9 L Eos % (Auto) (0.3 - 3.7 %) 0.0 L 1.4 Baso % (Auto) (0.0 - 2.0 %) 0.2 0.3 Neut # (Auto) (2.0 - 7.6 x10 3/uL) 22.60 H 34.72 H Lymph # (Auto) (1.0 - 3.8 x10 3/uL) 0.31 L 1.40 Starke # (Auto) (0.1 - 0.8 x10 3/uL) 1.65 H 1.54 H Eos # (Auto) (0.0 - 0.2 x10 3/uL) 0.00 0.57 H Baso # (Auto) (0.0 - 0.2 x10 3/uL) 0.04 0.12 Abs Immat Gran (auto) (0.00 - 0.03 x10 3/uL) 0.29 H 1.21 H Add Manual Diff NO NO Immature Gran % (0.0 - 2.0 %) 1.2 3.1 H Nucleated RBC % (0 - 0 %) 0.0 0.0 Nucleated RBCs # (Man) (0.0 - 0.1 x10 3/uL) 0.00 0.00 Platelet Estimate (ADEQUATE THOUSAND) 92 TO 115 Plt Morphology Comment LARGE PLATELETS Radiology data:Recent Impressions:RADIOLOGY - XR CHEST 1 V 07/08 1919 Report Impression - Status: SIGNED Entered: 07/08/20221957 IMPRESSION: Postoperative change with minimal vascular congestion and bibasilar pulmonary opacities. Impression By: Sudhir Strong M.D.RADIOLOGY - XR CHEST 1 V 07/09 0615 Report Impression - Status: SIGNED Entered: 07/09/2022 0956 IMPRESSION: 1. Stable pulmonary opacities likely combination of airspace disease and atelectasis. 2. Stable left basilar pleuroparenchymal changes with small volume pleural effusions. 3. Stable postoperative cardiomediastinal silhouette. Impression By: Robert Ratliff M.D. Diagnosis, Assessment PlanConsultants: cardiology, cardiovascular surgery, nephrology Free Text DxA P NotesFree text DxA P notes:Assessment and plans:CAD (coronary artery disease) patient presented with NSTEMI and found to hve severe CAD. Cardiac cath shows: Left Main - Distal 70% LAD - Proximal 80% with another 60% and 70% lessions Cir - Proximal 80%,mid 80-90%, Distal 70% and OM 60% RCA - large dominant with proximal 40%, Mid 60%. Cardiology and CV surgeon consulted echo: ef 30-34%, mod hypokinesis of entire myocardium, grade 1 diastolic dysfunction Carotid Dopplers negative PFTs PT/OT s/p CABG X5 on 07/08 Patient on ASA, plavix, BB and Statin on amiodarone Beta-tomas on hold now, BP low, on epinephrine and vasopressin 07/09 Acute systolic heart failure Echocardiac with estimated LVEF of 30 to 34% with grade 1 diastolic dysfunction-s/p Lasix 20 mg twice daily 07/05 -on metoprolol 12.5 mg bid on hold now, BP low-no ACEI/ spironolactione for CLAUDETTE-Strict I's and O's, daily weights-Start GDMT prior to discharge CLAUDETTE (acute kidney injury) No prior Hx of renal disease. hx of BPH and treated with Fosamax w/o improvement nd continue to have difficulty urinating. On admission was found to be on acute renal filaure and had received HD twice prior to arrival here (thursday and thursday). Creatinine this am was 7.4, BUN 68 * Probably due to obstructive uropathy* waters already in place* Nephrology consuled for HD On daily hemodialysis as per nephrology CRRT today 07/09 Anemia:-Hemoglobin dropped to 6.5 s/p CABG 2 PRBC BT ordered 07/09 Monitor H H HTN (hypertension) patient on metoprolol 12.5 mg BID, will adjust as needed On labetalol/hydralazine as needed Dyslipidemia on Lipitor 40mg po daliy. BPH (benign prostatic hyperplasia) Started on Flomax at the previous hospital, will continue with it. Waters catheter in place, continue Waters catheter as per nephrology 07/05 Goiter Hx of Goiter and surgical resection. TSH 3.33, within normal limits. Patient is not on Thyroid medication. anemia of chronic kidney disease Hemoglobin 9.5, monitor Hypokalemia resolved UTI continue Rocephin for empiric treatment pending results of urine culture No growth for 48 hours DVT prophylaxis: Heparin 5000 units every 8 hoursDiet: Cardiac dietCODE STATUS: Full code Disposition: Status post CABG x5 yesterday, chest tube in place, on 2 L oxygen via nasal cannula, on epinephrine and vasopressin, plan for CRRT today, 2 PRBC BT ordered, Waters catheter in place, diet ordered. Continue CVICU care. Quality: Gen Med Crit Care VTE ProphylaxisVTE prophylaxis initiated: yes Current MedicationsCurrent medication review:I attest that the foregoing medication list in the medical record is true, accurate, and complete to the best of my knowledge. Advanced Care Plan 65 or OlderDiscussed with: patientDiscussion included: living will (none), power of school commissioner (none), code status (full code) at 1446 RPT #:[id number] OF REPORTPRProgress [id number] Available for patient [id number]:26 HCACL 2022-07-09 08:06:00 [id number]:06:00 [facility] ([facility])Cardiology Progress NoteREPORT#:[id number] REPORT STATUS: SignedDATE:07/09/22 TIME: 0806 PATIENT: SHERRI ARCE UNIT #: [id number]#: [id number] [address] [birth year] AGE: 81 SEX: M ATTEND: Radha Ward [facility] AUTHOR: Jyoti Browning NP * ALL edits or amendments must be made on the electronic/computer document * SubjectiveChief complaint:s/p surgery Objective GeneralVS/I O:Laboratory Tests 07/09/22 0300:[Embedded Image Not Available] 07/08/22 1940:[Embedded Image Not Available] 07/08/22 0530:[Embedded Image Not Available]Current Medications Sig/Earl Start time Last Medication Dose Route Stop Time Status Admin Ipratropium [place] 500 MCG RTQ2H PRN PRN 07/11 1821 AC INH 08/10 182 Cyanocobalamin 500 MCG DAILY 07/11 899 AC PO 08/10 08 Ferrous Sulfate 325 MG DAILY 07/11 0900 AC PO 08/10 0859 Bisacodyl 10 MG ONCE PRN 02 1200 AC RECTAL 08/09 1159 Magnesium Hydroxide 30 ML ONCE PRN 07/10 1200 AC PO Atorvastatin Calcium 40 MG 2100 07/09 2099 AC PO 08/08 205 Clopidogrel Bisulfate 75 MG DAILY 07/09 0900 AC 07/09 PO 08/08 0859 0909 Polyethylene Glycol 17 GM DAILY 07/09 0900 AC 07/09 PO 08/08 0859 0910 Miscellaneous 1 EACH ASDIR 07/09 0730 AC Information MISC 08/08 0729 Calcium Chloride 1 GM ASDIR PRN 07/09 0700 AC Sodium Chloride 100 ML IV 08/08 0659 Calcium Chloride 2 GM ASDIR PRN 07/09 0700 AC Sodium Chloride 100 ML IV 08/08 0659 Magnesium Sulfate 100 ML ASDIR PRN 07/09 0700 AC IV 08/08 0659 Magnesium Sulfate 50 ML ASDIR PRN 07/09 0700 AC IV 08/08 0659 Miscellaneous 5,000 ML ASDIR 07/09 0700 AC DIALYSIS 08/08 0659 Potassium Chloride 50 ML ASDIR PRN 07/09 0700 AC IV 08/08 0659 Sodium Chloride 2,000 ML ASDIR PRN 07/09 0700 AC IV 08/08 0659 Sodium Phosphate 25 MMOL ASDIR PRN 07/09 0700 AC Sodium Chloride 250 ML IV 08/08 0659 Sodium Phosphate 20 MMOL ASDIR PRN 07/09 0700 AC Sodium Chloride 250 ML IV 08/08 0659 Sodium Phosphate 15 MMOL ASDIR PRN 07/09 0700 AC Sodium Chloride 250 ML IV 08/08 0659 Pantoprazole 40 MG DAILY@0600 07/09 0600 AC 07/09 PO 08/08 0559 0702 Aspirin 81 MG DAILY 07/09 0020 AC 07/09 PO 08/08 0019 0909 Vasopressin 100 ML ASDIR 07/09 0015 CKD IV 08/08 0014 Albumin Human 250 ML ONCE ONE 07/08 2345 DC 07/09 IV 07/09 0014 0022 Glycopyrrolate 1 MG ONCE ONE 07/08 2144 DC 07/08 IV 07/08 2145 214 Neostigmine 5 MG ONCE ONE 07/08 2144 DC 07/08 Methylsulfate IV 07/08 2145 2145 Amiodarone HCl 200 MG TID 07/08 2100 AC 07/09 PO 08/07 2058 0909 Docusate Sodium 100 MG BID 07/08 2100 AC 07/09 PO 08/07 2058 0909 Gabapentin 200 MG BID 07/08 2099 AC 07/09 PO 07/13 0901 0909 Metoprolol Tartrate 12.5 MG Q12HR 07/08 2100 AC PO 08/07 2058 Mupirocin 1 APPLIC BID 07/08 2100 AC 07/09 NASAL 07/13 0901 0911 Sennosides 17.2 MG BEDTIME 07/08 2100 AC 07/09 PO 08/07 2058 002 Albumin Human 100 ML .STK-MED ONE 07/08 192 DC IV Cefazolin Sodium 6 GM ONCE ONE 07/08 190 CKD 07/08 Sodium Chloride 500 ML IV 07/09 145 202 Ipratropium [place] 500 MCG RTQ4H 07/08 190 AC 07/09 INH 08/07 185 0726 Acetaminophen 650 MG Q4H PRN PRN 07/08 1830 AC 07/09 PO 08/07 182 0911 Acetaminophen 650 MG Q4H PRN PRN 07/08 183 AC RECTAL 08/07 1829 Albumin Human 25 GM ASDIR PRN 07/08 1830 AC 07/08 IV 07/09 1820 2345 Calcium Chloride 1 GM ASDIR PRN 07/08 1830 AC 07/08 IV 08/07 1829 2027 Dextrose/Water 125 ML ASDIR PRN 07/08 1830 CKD IV / 1829 Dextrose/Water 250 ML ASDIR PRN 07/08 1830 CKD IV / 1829 Epinephrine 4 MG ASDIR 07/08 1830 AC Dextrose/Water 246 ML IV 03 1829 Glucagon 1 MG ASDIR PRN 07/08 1830 AC IM 08/07 1829 Insulin Human Regular 100 UNIT ASDIR 07/08 1830 CKD Sodium Chloride 99 ML IV 03/ 1829 Magnesium Sulfate 100 ML ASDIR PRN 07/08 1830 AC IV / 1829 Magnesium Sulfate 50 ML ASDIR PRN 07/08 1830 AC IV / 1829 Magnesium Sulfate/ 100 ML ASDIR PRN 07/08 1830 AC 07/09 Dextrose IV 08/07 1829 0430 Morphine Sulfate 4 MG Q2H PRN PRN 07/08 1830 DC IV 07/13 1829 Nitroglycerin/ 250 ML ASDIR 07/08 1830 AC Dextrose IV 08/07 1829 Norepinephrine 250 ML TITRATE 07/08 1830 AC Bitartrate IV 08/07 1829 Ondansetron HCl 4 MG Q6H PRN PRN 07/08 1830 AC IV 08/07 1829 Oxycodone HCl 5 MG Q4H PRN PRN 07/08 1830 AC PO 07/13 1829 Oxycodone HCl 10 MG Q4H PRN PRN 07/08 1830 AC 07/09 PO 07/13 1829 0431 Potassium Chloride 100 ML ASDIR PRN 07/08 1830 AC IV / 1829 Sodium Bicarbonate 50 MEQ ASDIR PRN 07/08 1830 AC 07/09 IV 08/07 1829 0021 Sodium Chloride 1,000 ML .Q20H 07/08 1830 AC IV 08/07 1829 Sodium Chloride 250 ML Q24H 07/08 1830 AC IV / 1829 Rocuronium [place] 0 .STK-MED ONE 07/08 1659 DC IV Sodium Chloride 100 ML .STK-MED ONE 07/08 1654 DC IV Calcium Chloride 0 .STK-MED ONE 07/08 1644 DC IV Milrinone Lactate/ 100 ML .STK-MED ONE 07/08 1644 DC Dextrose IV Sodium Chloride 10 ML .STK-MED ONE 07/08 1644 DC IV Vasopressin 0 .STK-MED ONE 07/08 1644 DC .ROUTE Vasopressin 0 .STK-MED ONE 07/08 1644 DC .ROUTE Isoflurane 0 .STK-MED ONE 07/08 1604 DC INH Sodium Chloride 100 ML .STK-MED ONE 07/08 1537 DC IV Albumin Human 50 ML .STK-MED ONE 07/08 1525 DC IV Fentanyl Citrate 0 .STK-MED ONE 07/08 1255 DC IV Cefazolin Sodium 2 GM PREOP ONCALL 07/08 0500 DC IV 07/08 2359 Vancomycin HCl 1,250 MG [...] 200 MG PREOP ONCALL 07/07 2230 DC 07/08 PO 08/06 2359 1117 Sodium Chloride [...] PRN 07/06 2230 DC IV 08/05 2229 Bisacodyl 10 MG DAILY PRN PRN 07/06 0930 DC RECTAL 08/05 0929 Polyethylene Glycol 17 GM DAILY 07/06 0921 DC 07/06 PO 08/05 0920 1130 Senna/Docusate Sodium 2 TAB DAILY 07/06 0921 DC 07/06 PO 08/05 0920 1130 Atorvastatin Calcium 20 MG BEDTIME 07/03 2100 DC 07/07 PO 08/02 2059 2152 Ceftriaxone Sodium 1,000 MG Q24H 07/03 [...] 2,000 ML ASDIR PRN 07/03 1200 AC 07/07 IV 08/03 1155 1813 Sodium Chloride 5 ML ASDIR PRN 07/03 1200 DC IV 08/02 1159 Sodium Chloride 10 ML ASDIR PRN 07/03 1200 DC 07/07 IV 08/02 1159 1815 Sodium Chloride 250 ML ASDIR PRN 07/03 1200 DC IV 08/02 1159 Aspirin 81 MG DAILY 07/03 899 DC 07/08 PO 08/02 0859 09 Metoprolol Tartrate 12.5 MG BID 07/03 899 DC 07/08 PO 08/02 0759 09 Tamsulosin HCl 0.4 MG BEDTIME 07/02 2144 AC 07/09 PO 08/010 Docusate Sodium 100 MG BID PRN PRN [...] O2 Flow FiO2 Mean Ox Delivery Rate 07/09 0726 [...] 97 02/01 0342 98 Nasal 4 cannula 02 0330 36.7 97 22 108/58 78 98 [...] 76 100 07/08 2034 121/49 66 07/08 2030 35.9 107 16 111/55 79 100 07/08 2019 35.9 104 16 111/58 80 100 07/08 2009 36.0 102 16 88/50 65 100 07/08 2004 36.0 102 16 105/55 75 100 07/08 1999 36.8 07/08 1999 36.1 103 17 106/55 77 100 07/08 1918 100 Ventilator 50 07/08 1918 99 100 50 PATIENT WEIGHT: Weight (lb): 185Weight (oz): 3.01Weight (kg): 84.000 Physical ExamGeneral appearance: alert, awake, oriented, no acute distressHead/Eyes: atraumatic, clear corneaENT: moist mucosal membranesNeck: full range of motion, no JVDCardiovascular: CV assessment: regular rate and rhythm, no murmurRespiratory: decreased breath sounds, no distressAbdomen: soft, non-tender, normal bowel sounds, no distention, no guardingGenitourinary: urinary catheter, urineUpper extremity: UE assessment: normal temperature, no edemaLower extremity: LE assessment: normal temperature, no edemaNeuro/GIFT OFFICER: alert, oriented X 3, normal speechPsychiatry: normal affect ResultsRadiology data:Recent Impressions:RADIOLOGY - XR CHEST 1 V 07/08 1919 Report Impression - Status: SIGNED Entered: 07/08/20221957 IMPRESSION: Postoperative change with minimal vascular congestion and bibasilar pulmonary opacities. Impression By: Sudhir Strong M.D.RADIOLOGY - XR CHEST 1 V 07/09 0615 Report Impression - Status: SIGNED Entered: 07/09/2022 0956 IMPRESSION: 1. Stable pulmonary opacities likely combination of airspace disease and atelectasis. 2. Stable left basilar pleuroparenchymal changes with small volume pleural effusions. 3. Stable postoperative cardiomediastinal silhouette. Impression By: Robert Ratliff M.D. Diagnosis, Assessment PlanProblem List/A P: 1. HTN (hypertension) 2. CLAUDETTE (acute kidney injury) 3. CAD (coronary artery disease) 4. Dyslipidemia 5. BPH (benign prostatic hyperplasia) Consultants: cardiology, cardiovascular surgery, nephrology Free Text DxA P NotesFree Text DxA P Notes:Mr. Arce is a pleasant 81 y/o M w/ PMHx: HTN, HLD presented to [facility] on 06/28/22 for chest pain and sob. He was diagnosed NSTEMI w/ [...] and diffuse 50-60% dRCA. He transferred to [facility] for CABG. - CAD/NSTEMI. Per CTS. s/p LHC: multivessel disease. On statins, BB, ASA, plavix- as tolerated Echo: LVEF 30-34%, repeat echo prior to dc s/p CABG, on pressors, anemia s/p PRBCs, post-op per CTS continue supportive care, will follow - Acute Systolic HF with ischemic CMP LVEF 30-34% strict I/Os, daily weights, fluid restriction, low NA diet diuresis as needed per Nephrology no charly/arb/aldactone due to CLAUDETTE GDMT on discharge follow post-op - CLAUDETTE. HD Per nephro. likly from obstructive uropathy. s/p waters cath. Renal ultrasound showed severe thickening of the bladder, cholelitiasis. - HTN. hypotension post-op- on pressors - HLD. On statins. - Anemia. monitor post-op continue supportive care at 1249 at 0834 RPT #:[id number] OF REPORTPRProgress [id number]:[id number] Available for patient [id number]:54 HCACL 2022-07-09 07:05:00 [id number]:05:00 [facility] ([facility])Critical Care Progress NoteREPORT#:[id number] REPORT STATUS: SignedDATE:07/09/22 TIME: 07 PATIENT: SHERRI ARCE UNIT #: [id number]#: [id number] [address] [birth year] AGE: 81 SEX: M ATTEND: Radha Ward [facility] AUTHOR: Edwardo Flannery MD * ALL edits or amendments must be made on the electronic/computer document * SubjectiveChief complaint:CABGHPI:This is 81 years old male with medical history significant for HTN and dyslipidemia who presented to [facility] Thursday06/28/22 with chest pain and found to have a NSTEMI and also acute renal failure. He underwent cardiac cath and was found to have severe CAD including left main disease with EF of 30 to 35% and ischemic cardiomyopathy. Transfer here for CABG evaluation. CV surgery were consulted and the patient earlier today underwent CABG x 5 (MISTRY-LAD, SVG-Ladonna, SVG-OM1< SVG-OM3, SVG-PDA) and ALAA. His intraoperative course was without significant occurrence. The patient was brought to CVICU intubated and ventilated on milrinone drip, norepinephrine drip, epinephrine drip and vasopressin drip.His initial ABG showed metabolic acidosis and he received 2 A of sodium bicarb and 1 g of calcium.The patient started to wake up later in the evening but he looked weak, so he was reversed with neostigmine and glycopyrrolate. His motor strength improved significantly after that and his spontaneous breathing trial was good on the following ABG showed some metabolic acidosis. The patient will be extubated to a BiPAP as his CO2 was high on the ABG. Comments:extubated postop last nightUOP minimal, 150 ccCTs output 190 and 140 ccon insulin, vasopressin and epinephrine gttoff levophed and milrinone gttCI 3.6, SvO2 67%, CVP 7 Objective GeneralVS/I OLast Documented: Result Date Time Pulse Ox 98 07/09 034 O2 Delivery Nasal cannula 07/09 034 O2 Flow Rate 4 07/09 0342 B/P 114/47 07/08 210 Pulse 115 07/08 2105 Resp 20 07/08 2105 Temp 98.2 07/08 2000 FiO2 50 07/08 1919 B/P Mean 74 07/08 1105 24 hour I O ending at 0700: 07/09 0700 07/08 1900 Intake Total 300 Output Total 300 Balance 0 Intake, Oral 300 Intake, Oral 0 Supplement Number 0 Bowel Movements Output, Urine 300 PATIENT WEIGHT: Weight (lb): 185Weight (oz): 3.01Weight (kg): 84.000 Medications:Active Meds + DC'd Last 24 HrsIpratropium [place] (ATROVENT) 500 MCG RTQ2H PRN PRN INH Cyanocobalamin (Vitamin B-12 500 mcg tab) 500 MCG DAILY PO Ferrous Sulfate (FERROUS SULFATE) 325 MG DAILY PO Bisacodyl (DULCOLAX) 10 MG ONCE PRN RECTAL Magnesium Hydroxide (MILK OF MAGNESIA) 30 ML ONCE PRN PO Atorvastatin Calcium (LIPITOR) 40 MG 2100 PO Clopidogrel Bisulfate (Plavix) 75 MG DAILY PO Polyethylene Glycol (MIRALAX) 17 GM DAILY PO Calcium Chloride (CALCIUM CHLORIDE) 1 GM ASDIR PRN IV (UNV) Sodium Chloride (SODIUM CHLORIDE 0.9%) 100 MLCalcium Chloride (CALCIUM CHLORIDE) 2 GM ASDIR PRN IV (UNV) Sodium Chloride (SODIUM CHLORIDE 0.9%) 100 MLMagnesium Sulfate (MAGNESIUM SULFATE 4GM/SWFI 100ML) 100 ML ASDIR PRN IV (UNV) Magnesium Sulfate (MAGNESIUM SULFATE 2GM/SWFI 50ML) 50 ML ASDIR PRN IV (UNV) Miscellaneous (PRISMASATE BGK 4/2.5 SOLUTION) 5,000 ML ASDIR DIALYSIS (PEND) Potassium Chloride (KCL 10MEQ/SWFI 50ML) 50 ML ASDIR PRN IV Sodium Chloride (SODIUM CHLORIDE 0.9%) 2,000 ML ASDIR PRN IV Sodium Phosphate (SODIUM PHOSPHATE) 25 MMOL ASDIR PRN IV (UNV) Sodium Chloride (SODIUM CHLORIDE 0.9%) 250 MLSodium Phosphate (SODIUM PHOSPHATE) 20 MMOL ASDIR PRN IV (UNV) Sodium Chloride (SODIUM CHLORIDE 0.9%) 250 MLSodium Phosphate (SODIUM PHOSPHATE) 15 MMOL ASDIR PRN IV (UNV) Sodium Chloride (SODIUM CHLORIDE 0.9%) 250 MLPantoprazole (PROTONIX) 40 MG DAILY@0600 PO Aspirin (ASPIRIN) [...] (Senna Lax 8.6 MG TABLET) 17.2 MG BEDTIME PO Albumin Human (ALBUMINAR-25%) 100 ML .STK-MED ONE IV (DC) Cefazolin Sodium (KEFZOL OR ANCEF) 6 GM ONCE ONE IV (CKD) Sodium Chloride (SODIUM CHLORIDE 0.9%) 500 MLIpratropium [place] (ATROVENT) 500 MCG RTQ4H INH Acetaminophen (TYLENOL) 650 MG Q4H PRN PRN PO Acetaminophen (TYLENOL) 650 MG Q4H PRN PRN RECTAL Albumin Human (ALBUMINAR 25%) 25 GM ASDIR PRN IV Calcium Chloride (CALCIUM CHLORIDE) 1 GM ASDIR PRN IV Dextrose/Water (DEXTROSE 10% IN WATER) 125 ML ASDIR PRN IV (CKD) Dextrose/Water (DEXTROSE 10% IN WATER) 250 ML ASDIR PRN IV (CKD) Epinephrine (ADRENALIN CHLORIDE) 4 MG ASDIR IV Dextrose/Water (DEXTROSE 5% WATER) 246 MLGlucagon (GLUCAGON) 1 MG ASDIR PRN IM Insulin Human Regular (HumuLIN R) 100 UNIT ASDIR IV (CKD) Sodium Chloride (SODIUM CHLORIDE 0.9%) 99 MLMagnesium Sulfate (MAGNESIUM SULFATE 4GM/SWFI 100ML) 100 ML ASDIR PRN IV Magnesium Sulfate (MAGNESIUM SULFATE 2GM/SWFI 50ML) 50 ML ASDIR PRN IV Magnesium Sulfate/Dextrose (MAGNESIUM SULFATE 1GM/D5W 100ML) 100 ML ASDIR PRN IV Morphine Sulfate (morphine SULFATE) 4 MG Q2H PRN PRN IV Nitroglycerin/Dextrose (NITROGLYCERIN 50,000MCG/D5W 250ML) 250 ML ASDIR IV Norepinephrine Bitartrate (NOREPINEPHRINE 8 MG/NS 250 ML) 250 ML TITRATE IV Ondansetron HCl (ZOFRAN) 4 MG Q6H PRN PRN IV Oxycodone HCl (ROXICODONE) 5 MG Q4H PRN PRN PO Oxycodone HCl (ROXICODONE) 10 MG Q4H PRN PRN PO Potassium Chloride (KCL 20MEQ/SWFI 100ML) 100 ML ASDIR PRN IV Sodium Bicarbonate (SODIUM BICARBONATE) 50 MEQ ASDIR PRN IV Sodium Chloride (SODIUM CHLORIDE 0.9%) 1,000 ML .Q20H IV Sodium Chloride (SODIUM CHLORIDE 0.9%) 250 ML Q24H IV Rocuronium [place] (ZEMURON) 0 .STK-MED ONE IV (DC) Sodium Chloride (SODIUM CHLORIDE 0.9%) 100 ML .STK-MED ONE IV (DC) Calcium Chloride (CALCIUM CHLORIDE) 0 .STK-MED ONE IV (DC) Milrinone Lactate/Dextrose (MILRINONE 20MG/D5W 100ML) 100 ML .STK-MED ONE IV (DC) Sodium Chloride (SODIUM CHLORIDE) 10 ML .STK-MED ONE IV (DC) Vasopressin (VASOSTRICT) 0 .STK-MED ONE .ROUTE (DC) Vasopressin (VASOSTRICT) 0 .STK-MED ONE .ROUTE (DC) Isoflurane (FORANE) 0 .STK-MED ONE INH (DC) Sodium Chloride (SODIUM CHLORIDE 0.9%) 100 ML .STK-MED ONE IV (DC) Albumin Human (ALBUMINAR-25%) 50 ML .STK-MED ONE IV (DC) Fentanyl Citrate (SUBLIMAZE) 0 .STK-MED ONE IV (DC) Midazolam HCl (VERSED) 0 .STK-MED ONE .ROUTE (DC) Papaverine HCl (PAPAVERINE HCL) 0 .STK-MED ONE IV (DC) Albumin Human (ALBUMINAR-25%) 100 ML .STK-MED ONE IV (DC) Heparin Sodium (HEPARIN SODIUM) 0 .STK-MED ONE .ROUTE (DC) Mannitol (Mannitol 20%) 500 ML .STK-MED ONE IV (DC) Sodium Chloride (SODIUM CHLORIDE 0.9%) 100 ML .STK-MED ONE IV (DC) Lidocaine HCl (XYLOCAINE IV) 0 .STK-MED ONE IV (DC) Magnesium Sulfate (MAGNESIUM SULFATE) 0 .STK-MED ONE IV (DC) Phenylephrine HCl (SWETA-SYNEPHRINE 10MG/ML AMP) 0 .STK-MED ONE .ROUTE (DC) Sodium Bicarbonate (SODIUM BICARBONATE) 0 .STK-MED ONE IV (DC) Cefazolin Sodium (KEFZOL OR ANCEF) 0 .STK-MED ONE .ROUTE (DC) Epinephrine HCl (EPINEPHrine 4 mg/D5W 250 mL) 250 ML .STK-MED ONE IV (DC) Insulin Human Regular (HumuLIN R 100 UNITS/NS 100ML) 100 ML .STK-MED ONE IV (DC) Nitroglycerin/Dextrose (NITROGLYCERIN 50,000MCG/D5W 250ML) 250 ML .STK-MED ONE IV (DC) Norepinephrine Bitartrate (NOREPINEPHRINE 8 MG/NS 250 ML) 250 ML .STK-MED ONE IV (DC) Magnesium Sulfate (MAGNESIUM SULFATE) 0 .STK-MED ONE .ROUTE (DC) Protamine Sulfate (PROTAMINE SULFATE) 0 .STK-MED ONE IV (DC) Ropivacaine (NAROPIN 0.5% 150 MG/30mL) 0 .STK-MED ONE .ROUTE (DC) Aminocaproic Acid (AMICAR) 0 .STK-MED ONE IV (DC) Heparin Sodium (HEPARIN SODIUM) 0 .STK-MED ONE .ROUTE (DC) Dexamethasone Sodium Phosphate (DECADRON) 0 .STK-MED ONE .ROUTE (DC) Lidocaine HCl (XYLOCAINE) 0 .STK-MED ONE .ROUTE (DC) Ondansetron HCl (ZOFRAN) 0 .STK-MED ONE .ROUTE (DC) Rocuronium [place] (ZEMURON) 0 .STK-MED ONE IV (DC) Cefazolin Sodium (KEFZOL OR ANCEF) 2 GM PREOP ONCALL IV (DC) Vancomycin HCl (VANCOMYCIN HCL) 1,250 MG PREOP ONCALL IV (DC) Sodium Chloride (SODIUM CHLORIDE 0.9%) 250 MLVerapamil HCl (ISOPTIN) 16.6 MG .Q24H ONE IV (DC) Heparin Sodium (Porcine) (HEPARIN SODIUM) 1,660 UNIT Sodium Bicarbonate (SODIUM BICARBONATE) 0.7 ML Nitroglycerin/Dextrose (NITROGLYCERIN 50MG/D5W 250ML) 8.3 MG Lactated Ringer's (LACTATED RINGERS) 949.5 MLAcetaminophen (TYLENOL EXTRA STRENGTH) 1,000 MG PREOP ONCALL PO (DC) Gabapentin (NEURONTIN) 200 MG PREOP ONCALL PO (DC) Sodium Chloride (SODIUM CHLORIDE) 20 ML ASDIR IV (DC) Lidocaine HCl (LIDOCAINE HCL/PF) 2 ML PREOP ONCALL LOCAL (DC) Lidocaine HCl (LIDOCAINE HCL/PF) 2 ML PREOP ONCALL LOCAL (DC) Sodium Chloride (SODIUM CHLORIDE 0.9%) 500 ML PREOP ONCALL IV (DC) Sodium Chloride (SODIUM CHLORIDE 0.9%) 500 ML PREOP ONCALL IV (DC) Sodium Chloride (SODIUM CHLORIDE) 5 ML ASDIR PRN IV (DC) Sodium Chloride (SODIUM CHLORIDE) 10 ML ASDIR PRN IV (DC) Sodium Chloride (SODIUM CHLORIDE 0.9%) 250 ML ASDIR PRN IV (DC) Bisacodyl (DULCOLAX) 10 MG DAILY PRN PRN RECTAL (DC) Polyethylene Glycol (MIRALAX) 17 GM DAILY PO (DC) Senna/Docusate Sodium (SENOKOT S) 2 TAB DAILY PO (DC) Atorvastatin Calcium (LIPITOR) 20 MG BEDTIME PO (DC) Ceftriaxone Sodium (ROCEPHIN 1000MG VIAL) 1,000 MG Q24H IV (DC) Sodium Chloride (SODIUM CHLORIDE) 10 MLAlbumin Human (ALBUMINAR-25%) 12.5 GM ASDIR PRN IV Heparin Sodium (Porcine) (HEPARIN SODIUM) 3,000 UNIT ASDIR PRN DIALYSIS Lidocaine HCl (LIDOCAINE HCL/PF) 0.5 ML ASDIR PRN I-DERMAL (CKD) Mannitol (Mannitol 20%) 12.5 GM ASDIR PRN IV Sodium Chloride (SODIUM CHLORIDE 0.9%) 2,000 ML ASDIR PRN IV Sodium Chloride (SODIUM CHLORIDE) 5 ML ASDIR PRN IV (DC) Sodium Chloride (SODIUM CHLORIDE) 10 ML ASDIR PRN IV (DC) Sodium Chloride (SODIUM CHLORIDE 0.9%) 250 ML ASDIR PRN IV (DC) Aspirin (ASPIRIN) 81 MG DAILY PO (DC) Metoprolol Tartrate (LOPRESSOR) 12.5 MG BID PO (DC) Tamsulosin HCl (Flomax 0.4 mg) 0.4 MG BEDTIME PO Docusate Sodium (COLACE) 100 MG BID PRN PRN PO (DC) Labetalol HCl (LABETALOL HCL) 10 MG Q6H PRN PRN IV (DC) Ondansetron HCl (ZOFRAN) 4 MG Q4H PRN PRN IV (DC) ResultsFindings/data:Laboratory Tests 07/09 07/09 07/08 07/08 0333 0306 2853 2151Blood Gas Puncture Site [place] Art Line Art Line Art Line O2 Saturation (90 - 100 %) 93.0 97.7 97.3 ABG pH (7.35 - 7.45) 7.310 L 7.299 *L 7.273 *L ABG pCO2 (35.0 - 45 mmHg) 42.8 41.3 46.4 H ABG pO2 (80 - 100.0 mmHg) 73.2 L 109.2 H 103.4 H ABG HCO3 (22.0 - 26.0 MMOL/L) 21.5 L 20.3 L 21.6 L ABG Total CO2 22.8 21.5 23.1 ABG Base Excess (-4.0 - 4.0 MMOL/L) -4.7 L -6.2 L -5.4 L ABG Hematocrit (37.5 - 50.7 %) 19 L 21 L 23 L 26 L ABG Hemoglobin (12.5 [...] mmol/L) 112 H 110 H 114 H 113 H Ionized Calcium (1.12 - 1.32 1.20 1.23 1.18 1.29MMOL/L) Lactic Acid (0.9 - 1.7 mmol/l) 5.9 *H 6.1 *H 5.1 *H 3.6 H Temperature (F) 98.6 98.6 97.2 O2 Delivery Device Cannula Cannula Cannula Adult Vent Vent Mode PS PEEP (cmH2O) 5 Pressure Support (cmH2O) 07/086 1934 1843 1748Blood Gas Puncture Site [place] Al[place] Art Line O2 Saturation (90 - 100 %) 97.7 99.9 100.0 ABG pH (7.35 - 7.45) 7.263 *L 7.313 L 7.432 ABG pCO2 (35.0 - 45 mmHg) 44.1 36.8 33.6 L ABG pO2 (80 - 100.0 mmHg) 111.1 H 375.0 *H 404.5 *H ABG PO2/FiO2 Ratio (mm/Hg) 222.20 ABG HCO3 (22.0 - 26.0 MMOL/L) 20.1 L 18.7 L 22.4 ABG Total CO2 21.5 19.8 23.4 ABG Base Excess (-4.0 - 4.0 -7.1 L -6.9 L -1.6MMOL/L) ABG Hematocrit (37.5 - 50.7 %) 23 L 24 L 22 L 23 L ABG Hemoglobin (12.5 - 16.9 G/DL) 8.0 L 8.3 L 7.5 L 7.7 L Marylu Test N/A VBG pH (7.33 - 7.45) 7.265 L VBG pCO2 (43 - 47 mmHg) 48.5 H VBG pO2 (10 - 50 mmHG) 41.1 VBG HCO3 (22 - 27 MMOL/L) 22.3 POC VBG Total CO2 23.9 VBG O2 Saturation (60 - 80 %) 72.4 VBG Base Excess (-4.0 - 4.0 -4.9 LMMOL/L) VBG Temperature (F) 96.4 Sodium (134 - 147 mmol/L) 148 H 146 147 144 Potassium (3.4 - 5.0 mmol/L) 3.6 3.9 3.7 5.0 Chloride (100 - 108 mmol/L) 115 H 114 H 117 H 109 H Ionized Calcium (1.12 - 1.32 1.26 1.18 1.06 L 1.03 LMMOL/L) Lactic Acid (0.9 - 1.7 mmol/l) 2.5 [...] (90 - 100 %) 99.9 100.0 100.0 100.0 ABG pH (7.35 - 7.45) 7.401 7.355 7.262 *L 7.330 L ABG pCO2 (35.0 - 45 mmHg) 33.4 L 43.3 49.5 H 40.0 ABG pO2 (80 - 100.0 mmHg) 327.7 *H 469.8 *H 458.7 *H 487.7 *H ABG HCO3 (22.0 - 26.0 MMOL/L) 20.7 L 24.2 22.3 21.1 L ABG Total CO2 21.7 25.5 23.8 22.3 ABG Base Excess (-4.0 - 4.0 MMOL/L) -3.6 -1.3 -4.8 L -4.5 L ABG Hematocrit (37.5 - 50.7 %) 25 L 25 L 32 L 33 L ABG Hemoglobin (12.5 - 16.9 G/DL) 8.6 L 8.4 L 10.8 L 11.3 L Sodium (134 - 147 mmol/L) 142 142 144 147 Potassium (3.4 - 5.0 mmol/L) 4.7 4.6 4.1 4.2 Chloride (100 - 108 mmol/L) 110 H 108 111 H 112 H Ionized Calcium (1.12 - 1.32 MMOL/L) 1.04 L 1.06 L 1.15 1.11 L Lactic Acid (0.9 - 1.7 mmol/l) 1.2 0.6 L 0.8 L < 0.3 L Laboratory Tests 07/09 07/09 07/09 07/09 07/09 0333 0306 0300 0300 0233Chemistry Sodium (134 - 147 mEq/L) 149 H [...] L Total Alk Phosphatase (20 - 125 40IUnit/L) Total Protein (6.4 - 8.2 g/dL) 5.5 L Albumin (3.4 - 5.0 g/dL) 3.60 07/09 07/08 07/08 07/08 07/08 0124 2335 2234 2151 2046 Chemistry POC Creatinine (0.8 - 1.3 mg/dL) 4.1 H 3.9 H 3.9 H POC Glucose (mg/dL) (70 - 110 MG/DL) 234 H 206 H 190 H Lactic Acid (0.4 - 1.9 mmol/L) 6.6 *H 5.0 *H 07/08 07/08 07/08 07/08 07/08 1940 1940 1934 1843 1748Chemistry Sodium (134 - 147 mEq/L) 148 H Potassium (3.4 - 5.0 mEq/L) 4.0 Chloride (100 - 108 mEq/L) 114 H Carbon Dioxide (21 - 33 mEq/l) 22 Anion Gap (0 - 20) 16 BUN (7 - 18 mg/dL) 37 H Creatinine (0.6 - 1.3 mg/dL) 4.1 H POC Creatinine (0.8 - 1.3 mg/dL) 3.9 H 3.9 H 4.0 H Glomerular Filtr Rate (70 [...] - 1.3 mg/dL) 4.3 H 4.0 H 4.6 H 4.0 H POC Glucose (mg/dL) (70 - 110 MG/DL) 171 H 169 H 141 H 88 Laboratory Tests 07/08 07/08 07/08 07/08 1940 1845 1750 1721 Coagulation INR (0.8 - 1.2) 1.5 H PTT ([place]ton) (25.0 - 39.5 Seconds) 31.3 PT Patient/Control Mix (9.3 - 12.9 SECONDS) 16.2 H Activated Coag Time (74 - 137 [...] - 32.0 %) 1.2 L 3.5 L Starke % (Auto) (4.8 - 9.0 %) 6.6 3.9 L Eos % (Auto) (0.3 - 3.7 %) 0.0 L 1.4 Baso % (Auto) (0.0 - 2.0 %) 0.2 0.3 Neut # (Auto) (2.0 - 7.6 x10 3/uL) 22.60 H 34.72 H Lymph # (Auto) (1.0 - 3.8 x10 3/uL) 0.31 L 1.40 Starke # (Auto) (0.1 - 0.8 x10 3/uL) 1.65 H 1.54 H Eos # (Auto) (0.0 - 0.2 x10 3/uL) 0.00 0.57 H Baso # (Auto) (0.0 - 0.2 x10 3/uL) 0.04 0.12 Abs Immat Gran (auto) (0.00 - 0.03 x10 3/uL) 0.29 H 1.21 H Add Manual Diff NO NO Immature Gran % (0.0 - 2.0 %) 1.2 3.1 H Nucleated RBC % (0 - 0 %) 0.0 0.0 Nucleated RBCs # (Man) (0.0 - 0.1 x10 3/uL) 0.00 0.00 Platelet Estimate (ADEQUATE THOUSAND) 92 TO 115 Plt Morphology Comment LARGE PLATELETS Laboratory Tests 07/09/22 0300:[Embedded Image Not Available] 07/08/22 1940:[Embedded Image Not Available]Microbiology:07/07 2231 NASAL: MSSA Surveillance Screen - ORD07/07 2231 NASAL: MRSA DNA Surveillance Screen - ORD07/06 1350 NASAL: MSSA Surveillance Screen - COMP07/06 1350 NASAL: MRSA DNA Surveillance Screen - COMP Radiology dataRecent Impressions:RADIOLOGY - XR CHEST 1 V 07/08 1919 Report Impression - Status: SIGNED Entered: 07/08/20221957 IMPRESSION: Postoperative change with minimal vascular congestion and bibasilar pulmonary opacities. Impression By: Sudhir Strong M.D. Free Text Obj NotesFree Text Obj Notes:General appearance: Elderly male in no acute distress, interactiveHEENT: atraumatic, normocephalic, moist mucosal membranesNeck: full range of motion, supple/no meningismusCardiovascular: S1-S2 regular rate and rhythmRespiratory: symmetric expansion, no acute respiratory distressAbdomen: soft, non-tender, no distention, no guardingGenitourinary: waters with minimal urineExtremities: pedal pulses palpable, moves all, no cyanosis, mild LE edemaMusculoskeletal: normal inspection, no muscle spasmNeuro/GIFT OFFICER: alert and oriented, CNII-XII grossly intact, no motor deficitsSkin: dry, intact and clean surgery dressing Diagnosis, Assessment PlanProblem list/A P: 1. CLAUDETTE (acute kidney injury) 2. CAD (coronary artery disease) 3. Goiter 4. BPH (benign prostatic hyperplasia) 5. Dyslipidemia 6. HTN (hypertension) Free text A P:81/M with Acute pulmonary insufficiency following thoracic surgeryStatus post CABG x 5 (MISTRY-LAD, SVG-Ladonna, SVG-OM1< SVG-OM3, SVG-PDA) and ALAAAcute blood loss anemiaHypotensionIschemic cardiomyopathy, EF 30 to 34%Multivessel CADAKI on hemodialysis Continue mechanical ventilation, vent settings reviewedTitrate FiO2 to keep saturation more than 90%.Spontaneous breathing trial as soon as possibleWean to extubateFollow ABGs and CXRsABG shows metabolic acidosis. Patient received 2 A of sodium bicarb and 1 g of calciumKeep off sedationJudicious pain controlMilrinone drip 0.25Epinephrine dripNorepinephrine dripVasopressin dripTitrate drips to keep MAP more than 65Wean milrinone off first per CV surgeryMinimize fluids per CV surgeryAspirin and PlavixAtorvastatinMetoprololFollow lactate levelMonitor chest tube outputHemodialysis per nephrologyMonitor urine output and kidney functionMonitor and replete electrolytesPerioperative antibioticsCardiac diet with bowel regimen once extubatedBG control with insulin gtt per protocolPT/OTVTE prophylaxis.Stress ulcer prophylaxis.Discussed with CV surgery, anesthesia and ICU teamCritical care time 85 minutes 2/1Appears neuro intact, multimodal pain control, minimize narcotic use, no CO2 narcosisExtubated successfully, sats well on NC, wean O2, monitor for hypercapnia, encourage I-S, obtain serial ABGs, CXR reviewedHD unstable, weaning vasopressors and inotrope, monitor HD parameters, low CVP, lactic acidosis with uptrending lactate, gentle volume resuscitationOliguric CLAUDETTE, plan for CRRT per renal, hyperkalemia treated, obtain serial labPO challenge, bowel regimen, serial abdominal exam, monitor LFTsLeukocytosis postop, likely reactive, trend WBC, s/p antibiotic course for UTI ,periop antibioticsHgb trending down, no evidence of active bleed, monitor CTs output, RBC given HDinstabilityBlood glucose control with insulin drip per protocolEncourage PT/OT and activity as toleratedDVT and GI prophylaxis with DAPT and PPI Consultants: cardiology, cardiovascular surgery, nephrologyPlan discussed with: patient, consultants, nurse, interdisc care team, pharmacy/pharmacistCritical care time: Minutes: 39 at 1500 RPT #:[id number] OF REPORTPRProgress [id number]:05:00G.[id number] Available for patient [id number]:00:35 [facility] 2022-07-09 04:53:00 [id number] [place] [address] PATIENT NAME: SHERRI ARCE ADMIT DATE: 07/02/22ACCOUNT NO: [id number] ROOM NO: [facility] [place] AGE: 81 REPORT TYPE: eELECTROCARDIOGRAM REPORT SEX: M ADMITTING PHYSICIAN:Radha Ward MD ATTENDING PHYSICIAN:Radha Ward MD Order:[id number] Reason : POD 1 CABG 5 Test Date/Time Stamp:ThuJul 09 2022 04:53:06Blood Pressure : / mmHGVent. Rate : 096 BPM Atrial Rate : 096 BPM P-R Int : 184 ms QRS Dur : 124 ms QT Int : 416 ms P-R-T Axes : 074 045 089 degrees QTc Int : 525 ms Normal sinus rhythmLeft bundle branch blockAbnormal ECGWhen compared with ECG of 08-JUL-2022 19:54,No significant change was foundConfirmed by MD ALEXIS GERARD ([id number]) on 07/10/2022 6:44:16 AM Referred By: Self Referred Confirmed by:MAME ALEXIS MD at 0644 PATIENT NAME: SHERRI ARCE .[id number] for patient [id number]:44:40 [facility] 2022-07-08 19:54:00 [id number] [address] PATIENT NAME: SHERRI ARCE ADMIT DATE: 07/02/22ACCOUNT NO: [id number] ROOM NO: .2202 AGE: 81 REPORT TYPE: eELECTROCARDIOGRAM REPORT SEX: M ADMITTING PHYSICIAN:Radha Ward MD ATTENDING PHYSICIAN:Radha Ward MD Order:[id number] Reason : CABGX5 Test Date/Time Stamp:ThuJul 08 2022 19:54:27Blood Pressure : / mmHGVent. Rate : 104 BPM Atrial Rate : 104 BPM P-R Int : 148 ms QRS Dur : 130 ms QT Int : 426 ms P-R-T Axes : 057 040 111 degrees QTc Int : 560 ms Sinus tachycardiaLeft bundle branch blockAbnormal ECGWhen compared with ECG of 03-JUL-2022 07:17,Significant changes have occurredConfirmed by MD VANESA, MAME ([id number]) on 07/10/2022 6:44:06 AM Referred By: Radha Ward Confirmed by:MAME ALEXIS MD at 0644 PATIENT NAME: SHERRI ARCE .[id number] for patient [id number]:44:30 [facility] 2022-07-08 19:39:00 [id number]:39:00 [facility] ([facility])Critical Care Consult NoteREPORT#:[id number] REPORT STATUS: SignedDATE:07/08/22 TIME: 1938 PATIENT: SHERRI ARCE UNIT #: [id number]#: [id number] [address] AGE: 81 SEX: M ATTEND: Radha Ward [facility] AUTHOR: Wagner Viera MD * ALL edits or amendments must be made on the electronic/computer document * History of Present Illness HPIChief complaint:Chest painHPI:This is 81 years old male with medical history significant for HTN and dyslipidemia who presented to [facility] Thursday06/28/22 with chest pain and found to have a NSTEMI and also acute renal failure. He underwent cardiac cath and was found to have severe CAD including left main disease with EF of 30 to 35% and ischemic cardiomyopathy. Transfer here for CABG evaluation. CV surgery were consulted and the patient earlier today underwent CABG x 5 (MISTRY-LAD, SVG-Ladonna, SVG-OM1< SVG-OM3, SVG-PDA) and ALAA. His intraoperative course was without significant occurrence. The patient was brought to CVICU intubated and ventilated on milrinone drip, norepinephrine drip, epinephrine drip and vasopressin drip.His initial ABG showed metabolic acidosis and he received 2 A of sodium bicarb and 1 g of calcium.The patient started to wake up later in the evening but he looked weak, so he was reversed with neostigmine and glycopyrrolate. His motor strength improved significantly after that and his spontaneous breathing trial was good on the following ABG showed some metabolic acidosis. The patient will be extubated to a BiPAP as his CO2 was high on the ABG. History - Adult longitudinalPast medical history:Reports: Hypertension, Dyslipidemia. Additional surgical history:DeniesFamily history:Reports: Heart disease (parents and sibbling.). 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 CLAUDETTE (acute kidney injury) 2. CAD (coronary artery disease) 3. Goiter 4. BPH (benign prostatic hyperplasia) 5. Dyslipidemia 6. HTN (hypertension) Consultants: cardiology, cardiovascular surgery, nephrologyFree text DxA P:Acute pulmonary insufficiency following thoracic surgeryStatus post CABG x 5 (MISTRY-LAD, SVG-Ladonna, SVG-OM1< SVG-OM3, SVG-PDA) and ALAAAcute blood loss anemiaHypotensionIschemic cardiomyopathy, EF 30 to 34%Multivessel CADAKI on hemodialysis Continue mechanical ventilation, vent settings reviewedTitrate FiO2 to keep saturation more than 90%.Spontaneous breathing trial as soon as possibleWean to extubateFollow ABGs and CXRsABG shows metabolic acidosis. Patient received 2 A of sodium bicarb and 1 g of calciumKeep off sedationJudicious pain controlMilrinone drip 0.25Epinephrine dripNorepinephrine dripVasopressin dripTitrate drips to keep MAP more than 65Wean milrinone off first per CV surgeryMinimize fluids per CV surgeryAspirin and PlavixAtorvastatinMetoprololFollow lactate levelMonitor chest tube outputHemodialysis per nephrologyMonitor urine output and kidney functionMonitor and replete electrolytesPerioperative antibioticsCardiac diet with bowel regimen once extubatedBG control with insulin gtt per protocolPT/OTVTE prophylaxis.Stress ulcer prophylaxis.Discussed with CV surgery, anesthesia and ICU teamCritical care time 85 minutes Quality: Gen Med Crit Care VTE ProphylaxisVTE prophylaxis initiated: yes Current MedicationsCurrent medication review:I attest that the foregoing medication list in the medical record is true, accurate, and complete to the best of my knowledge. Advanced Care Plan 65 or OlderDiscussed with: patientDiscussion included: living will (none), power of school commissioner (none), code status (full code) at 2238 RPT #:[id number] OF [id number]:39:00G. [id number] for patient [id number]:39:02 [facility] 2022-07-08 19:10:00 [id number] [address] PATIENT NAME: SHERRI ARCE ADMIT DATE: 07/02/22ACCOUNT NO: [id number] ROOM NO: G.3354 AGE: 81 REPORT TYPE: OPERATIVE REPORT SEX: M ADMITTING PHYSICIAN:Srinath Kaur MD ATTENDING PHYSICIAN:Srinath Kaur MD OPERATION DATE: 07/08/2022 PREOPERATIVE DIAGNOSES:1. Coronary artery disease.2. Cardiomyopathy.3. End-stage renal disease. POSTOPERATIVE DIAGNOSES:1. Coronary artery disease.2. Cardiomyopathy.3. End-stage renal disease. PROCEDURES:1. Coronary artery bypass graft surgery x 5 (left internal mammary artery to left anterior descending, saphenous vein to diagonal, saphenous vein to first marginal, saphenous vein to third marginal, saphenous vein to PDA).2. Amputation of left atrial appendage.3. Endoscopic vein harvest (right greater saphenous vein). SURGEON: Lina Schwarz MD PENSION CONSULTANT: Renny Rodríguez MD ANESTHESIOLOGIST: Dr. Adams ANESTHESIA: General endotracheal anesthesia. ESTIMATED BLOOD LOSS: 100 mL INDICATIONS: Mr. Arce is a 81-year-old gentleman with end-stage renal disease onhemodialysis and severe triple vessel coronary artery disease with severe cardiomyopathy. After due preop counseling, he was brought to the operating room today for surgical revascularization. FINDINGS:1. Vein was harvested from the right leg using endoscopic vein harvest technique. Vein was of marginal quality, measuring about 4 mm in size.2. Normal sternum.3. Good quality MISTRY measuring 2 mm in size with excellent flow.4. 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 LAD 2 mm, good quality.6. Diagonal 1.5 mm, diseased artery. PATIENT NAME: SHERRI ARCE 7. First marginal 1.5 mm, slightly diseased artery.8. Third marginal 1.75 mm, slightly diseased artery.9. PDA 2 mm, good quality artery.10. Left atrial appendage was amputated half a centimeter from the base. This was then repaired with two layers using running pledgeted 4-0 Prolene suture. PROCEDURE IN DETAIL: Mr. Arce was identified in the preoperative holding area and brought to the operating room and placed supine on the operating table. After induction of general endotracheal anesthesia, Waters catheter, radial arterial line, and antibiotics were placed. The patient's anterior torso and both lower extremities were prepped and draped in standard surgical fashion. Vein was harvested from the right leg using endoscopic vein harvest technique. Following harvesting of the vein, subcutaneous tissue was closed with 2-0 [place] the skin with 4-0 Vicryl. Simultaneously, median sternotomy was performed and left internal mammary artery was harvested. The patient was heparinized. Pericardium was opened longitudinally. A pericardial well was created. Intrapericardial adhesions were then taken down. Cardiopulmonary bypass was instituted using ascending aorta and 3-stage cannula in the right atrium. The patient was cooled to 34 degrees centigrade. Crossclamp was applied and the heart was arrested with 1.5 liters of antegrade cold blood cardioplegia. Cardioplegia was repeated at interval of 10 minutes all through the duration of crossclamp. We began by exploring the PDA. This was good quality artery measuring 2 mm in size. Arteriotomy was performed with a [place] blade and extended with Reynoso scissors. A segment of previously harvested reverse saphenous vein was anastomosed in end-to-side manner using 7-0 Prolene suture. The vein graft to PDA was brought along the right side of the heart and sized. Aortotomy was performed on the right aspect of the aorta using 4 mm punch. Proximal anastomosis of the PDA graft was then performed using running 6-0 Prolene suture. Next, a third margin was explored. This was a slightly diseaseartery measuring 1.75 mm in size. Arteriotomy was performed with a [place] bladeand extended with Reynoso scissors. A segment of previously harvested reverse saphenous vein was anastomosed in end-to-side manner using 7-0 Prolene suture. The vein graft to the third margin was brought along the left side of the heart and sized. Aortotomy was performed on the left aspect of the aorta using 4 mm punch. Proximal anastomosis of the third margin graft was then performed using running 6-0 Prolene suture. Next, the left atrial appendage was amputated half a centimeter from the base. This was then repaired with two layers of running pledgeted 4-0 Prolene suture. Next, the first margin was explored. This was slightly diseased artery measuring 1.5 mm in size. Arteriotomy was performed with a [place] blade and extended with Reynoso scissors. A segment of previously harvested reverse saphenous vein was anastomosed in end-to-side manner using running 7-0 Prolene suture. The vein graft to the first margin was brought along the left side of the heart and sized. Aortotomy was performed on the leftaspect of the aorta using 4 mm punch. Proximal anastomosis of the first margin graft was then performed using running 6-0 Prolene suture. Rewarming was commenced at this stage. Next, the diagonal was explored. This was a diseased artery measuring 1.5 mm in size. Arteriotomy was performed with a [place] blade and extended with Reynoso scissors. A segment of previously harvested reverse saphenous vein was anastomosed in end-to-side manner using 7-0 Prolene suture. The vein graft to diagonal was brought along the left side of the heart and sized. Aortotomy was performed on the left aspect of the aorta using 4 mm punch. Proximal anastomosis of the diagonal graft was then performed using running 6-0 Prolene suture. Finally, the LAD was explored. This was a good quality artery measuring 2 mm in size. Arteriotomy was performed with a [place] PATIENT NAME: SHERRI ARCE blade and extended with Reynoso scissors. MISTRY was anastomosed in end-to-side manner using running 8-0 Prolene suture. The MISTRY pedicle was tacked to epicardium using two interrupted 6-0 Prolene suture. A slit was made in the pericardium on the left aspect, so as to accommodate the MISTRY. Careful deaeration was performed and the cross-clamp was released. One ventricular wirewas placed. A 28-Icelandic chest tube was placed in the mediastinum, and a 28-angled chest tube placed in the left pleural space. Once the patient was at temperature, he was weaned off cardiopulmonary bypass with some inotropic support. Heparin was reversed with protamine. Decannulation was uneventful. After confirming hemostasis, the chest was closed in layers using stainless steel wires for the sternum, #1 Vicryl for the fascia, 2-0 Vicryl for the subcutaneous tissue, and 4-0 Vicryl for the skin.. The patient was transferred to intensive care unit, intubated in stable condition. Dictated By: Lina Schwarz MD Date Dictated: 07/08/2022 19:10:43Date Transcribed: 07/08/2022 21:54:21AC/SVRJob #: [id number] ID: [id number] by Vinay Schwarz MD On 07/18/2022 04:45:50 PM at 0445 PATIENT NAME: SHERRI ARCE [id number]:54:00G.[id number] VAvailable for patient [id number]:46:24 [facility] 2022-07-08 19:00:00 [id number]:00 [facility] ([facility])Brief Op NoteREPORT#:[id number] REPORT STATUS: SignedDATE:07/08/22 TIME: 1899 PATIENT: SHERRI ARCE UNIT #: [id number]#: [id number] [address] AGE: 81 SEX: M ATTEND: Radha Ward [facility] AUTHOR: Lina Schwarz MD * ALL edits or amendments must be made on the electronic/computer document * Op/Inv Proc Note - BriefPre-procedure diagnosis:CADESRDPost-procedure diagnosis: same as pre procedure dxProcedures performed:CABG x 5 (MISTRY-LAD, SVG-Ladonna, SVG-OM1< SVG-OM3, SVG-PDA)ALAAEVH (RGSV)Primary Surgeon:Prasannat(s): Niall SethFindings:LAD-2mmComplications: noneEstimated blood loss in ml's: 100 ccSpecimens removed/altered: RONALDO at 1904 RPT #:[id number] OF REPORTOPOperative [id number]:00:00G.[id number] AVAvailable for patient [id number]:05:09 HCACL 2022-07-08 12:01:00 [id number]:01:00 [facility] ([facility])Nephrology Progress NoteREPORT#:[id number] REPORT STATUS: SignedDATE:07/08/22 TIME: 1201 PATIENT: SHERRI ARCE UNIT #: [id number]#: [id number] [address] [birth year] AGE: 81 SEX: M ATTEND: Radha Ward [facility] AUTHOR: Evelina Plaza MD * ALL edits or amendments must be made on the electronic/computer document * SubjectiveChief complaint:came to see Mr. Arce, but he was in [place]. Objective GeneralVS/I O:Vital Signs: Date Time Temp Pulse Resp B/P [...] Urine 150 300 PATIENT WEIGHT: Weight (lb): 185Weight (oz): 3.01Weight (kg): 84.000 ResultsRadiology data:Recent Impressions:RADIOLOGY - XR CHEST 1 V 07/08 1919 Report Impression - Status: SIGNED Entered: 07/08/20221957 IMPRESSION: Postoperative change with minimal vascular congestion and bibasilar pulmonary opacities. Impression By: Sudhir Strong M.D.RADIOLOGY - XR CHEST 1 V 07/09 0615 Report Impression - Status: SIGNED Entered: 07/09/2022 0956 IMPRESSION: 1. Stable pulmonary opacities likely combination of airspace disease and atelectasis. 2. Stable left basilar pleuroparenchymal changes with small volume pleural effusions. 3. Stable postoperative cardiomediastinal silhouette. Impression By: Robert Ratliff M.D. Diagnosis, Assessment PlanFree Text A P:Assessment:1-CLAUDETTE likely from urinary retention. 2- non-STEMI: multivessel disease w main left. 3- BPH4-severe bilateral najfhipeyuejcu8-lxhftkxorpkz6-sgihzsgwxkqtds Plan:-unknown Scr baseline. - He underwent LHC on 07/03. Started on HD without UF on 07/04 for clearance- Ultrasound showed severe bilateral hydronephrosis-Excellent urine output volume with Waters catheter. Suspect renal recovery. - continue Waters catheter and strict intake and output- s/p CABG 07/08 Discussed with patient and cardiothoracic surgery team Consultants: cardiology, cardiovascular surgery, nephrology at 1857 RPT #:[id number] OF REPORTPRProgress [id number]:01:[id number] Available for patient [id number]:57:43 HCACL 2022-07-08 11:45:00 [id number]:45:00 [facility] ([facility])Hospitalist Progress NoteREPORT#:[id number] REPORT STATUS: SignedDATE:07/08/22 TIME: 1145 PATIENT: SHERRI ARCE UNIT #: [id number]#: [id number] [address] AGE: 81 SEX: M ATTEND: Radha Ward AUTHOR: Radha Ward MD * ALL edits or amendments must be made on the electronic/computer document * SubjectiveChief complaint:Just left for CABG todayHPI:81 y/o man with PMHx of HTN, Dyslipidemia that [facility] with chest pain and found to have a NSTEMI and also acute renal failure. Underwent cardiac cath yesterday and found to have severe CAD including left main disease. Transfer here for CABG evaluation. He also underwent HD Thursday and Thursday of this week. HD catheter was place at [facility]. Currently not having any chest pain. Had chest pain with SOB when he presentted to the previous hospital. Objective GeneralVS/I O:Vital Signs: Date Time Temp Pulse Resp B/P [...] 07/07 2200 85 19 101/61 76 97 07/077 97.7 82 22 128/67 94 Room air 07/075 83 21 116/65 85 95 07/07 2100 [...] scale Measurement Method PATIENT WEIGHT: Weight (lb): 185Weight (oz): 3.01Weight (kg): 84.000 Medications:Active Meds + DC'd Last 24 HrsSodium Chloride (SODIUM CHLORIDE 0.9%) 100 ML .STK-MED ONE IV (DC) Albumin Human (ALBUMINAR-25%) 50 ML .STK-MED ONE IV (DC) Fentanyl Citrate (SUBLIMAZE) 0 .STK-MED ONE IV (DC) Midazolam HCl (VERSED) 0 .STK-MED ONE .ROUTE (DC) Papaverine HCl (PAPAVERINE HCL) 0 .STK-MED ONE IV (DC) Albumin Human (ALBUMINAR-25%) 100 ML .STK-MED ONE IV (DC) Heparin Sodium (HEPARIN SODIUM) 0 .STK-MED ONE .ROUTE (DC) Mannitol (Mannitol 20%) 500 ML .STK-MED ONE IV (DC) Sodium Chloride (SODIUM CHLORIDE 0.9%) 100 ML .STK-MED ONE IV (DC) Lidocaine HCl (XYLOCAINE IV) 0 .STK-MED ONE IV (DC) Magnesium Sulfate (MAGNESIUM SULFATE) 0 .STK-MED ONE IV (DC) Phenylephrine HCl (SWETA-SYNEPHRINE 10MG/ML AMP) 0 .STK-MED ONE .ROUTE (DC) Sodium Bicarbonate (SODIUM BICARBONATE) 0 .STK-MED ONE IV (DC) Cefazolin Sodium (KEFZOL OR ANCEF) 0 .STK-MED ONE .ROUTE (DC) Epinephrine HCl (EPINEPHrine 4 mg/D5W 250 mL) 250 ML .STK-MED ONE IV (DC) Insulin Human Regular (HumuLIN R 100 UNITS/NS 100ML) 100 ML .STK-MED ONE IV (DC) Nitroglycerin/Dextrose (NITROGLYCERIN 50,000MCG/D5W 250ML) 250 ML .STK-MED ONE IV (DC) Norepinephrine Bitartrate (NOREPINEPHRINE 8 MG/NS 250 ML) 250 ML .STK-MED ONE IV (DC) Magnesium Sulfate (MAGNESIUM SULFATE) 0 .STK-MED ONE .ROUTE (DC) Protamine Sulfate (PROTAMINE SULFATE) 0 .STK-MED ONE IV (DC) Ropivacaine (NAROPIN 0.5% 150 MG/30mL) 0 .STK-MED ONE .ROUTE (DC) Aminocaproic Acid (AMICAR) 0 .STK-MED ONE IV (DC) Heparin Sodium (HEPARIN SODIUM) 0 .STK-MED ONE .ROUTE (DC) Dexamethasone Sodium Phosphate (DECADRON) 0 .STK-MED ONE .ROUTE (DC) Lidocaine HCl (XYLOCAINE) 0 .STK-MED ONE .ROUTE (DC) Ondansetron HCl (ZOFRAN) 0 .STK-MED ONE .ROUTE (DC) Rocuronium [place] (ZEMURON) 0 .STK-MED ONE IV (DC) Cefazolin Sodium (KEFZOL OR ANCEF) 2 GM PREOP ONCALL IV (CKD) Metoprolol Tartrate (LOPRESSOR) 6.25 MG ONCE ONE PO (CAN) Vancomycin HCl (VANCOMYCIN HCL) 1,250 MG PREOP ONCALL IV (CKD) Sodium Chloride (SODIUM CHLORIDE 0.9%) 250 MLVerapamil HCl (ISOPTIN) 16.6 MG .Q24H ONE IV (CKD) Heparin Sodium (Porcine) (HEPARIN SODIUM) 1,660 UNIT Sodium Bicarbonate (SODIUM BICARBONATE) 0.7 ML Nitroglycerin/Dextrose (NITROGLYCERIN 50MG/D5W 250ML) 8.3 MG Lactated Ringer's (LACTATED RINGERS) 949.5 MLAcetaminophen (TYLENOL EXTRA STRENGTH) 1,000 MG PREOP ONCALL PO (CKD) Gabapentin (NEURONTIN) 200 MG PREOP ONCALL PO (CKD) Sodium Chloride (SODIUM CHLORIDE) 20 ML ASDIR IV Acetaminophen (TYLENOL EXTRA STRENGTH) 1,000 MG PREOP ONCALL PO (DC) Cefazolin Sodium (KEFZOL OR ANCEF) 2 GM PREOP ONCALL IV (DC) Gabapentin (NEURONTIN) 200 MG PREOP ONCALL PO (DC) Sodium Chloride (SODIUM CHLORIDE) 20 ML ASDIR IV (DC) Vancomycin HCl (VANCOMYCIN HCL) 1,250 MG PREOP ONCALL IV (DC) Sodium Chloride (SODIUM CHLORIDE 0.9%) 250 MLVerapamil HCl (ISOPTIN) 16.6 MG .Q24H ONE IV (DC) Heparin Sodium (Porcine) (HEPARIN SODIUM) 1,660 UNIT Sodium Bicarbonate (SODIUM BICARBONATE) 0.7 ML Nitroglycerin/Dextrose (NITROGLYCERIN 50MG/D5W 250ML) 8.3 MG Lactated Ringer's (LACTATED RINGERS) 949.5 MLLidocaine HCl (LIDOCAINE HCL/PF) 2 ML PREOP ONCALL LOCAL Lidocaine HCl (LIDOCAINE HCL/PF) 2 ML PREOP ONCALL LOCAL Sodium Chloride (SODIUM CHLORIDE 0.9%) 500 ML PREOP ONCALL IV Sodium Chloride (SODIUM CHLORIDE 0.9%) 500 ML PREOP ONCALL IV Sodium Chloride (SODIUM CHLORIDE) 5 ML ASDIR PRN IV Sodium Chloride (SODIUM CHLORIDE) 10 ML ASDIR PRN IV Sodium Chloride (SODIUM CHLORIDE 0.9%) 250 ML ASDIR PRN IV Bisacodyl (DULCOLAX) 10 MG DAILY PRN PRN RECTAL Polyethylene Glycol (MIRALAX) 17 GM DAILY PO Senna/Docusate Sodium (SENOKOT S) 2 TAB DAILY PO Atorvastatin Calcium (LIPITOR) 20 MG BEDTIME PO Ceftriaxone Sodium (ROCEPHIN 1000MG VIAL) 1,000 MG Q24H IV (DC) Sodium Chloride (SODIUM CHLORIDE) 10 MLAlbumin Human (ALBUMINAR-25%) 12.5 GM ASDIR PRN IV Heparin Sodium (Porcine) (HEPARIN SODIUM) 3,000 UNIT ASDIR PRN DIALYSIS Lidocaine HCl (LIDOCAINE HCL/PF) 0.5 ML ASDIR PRN I-DERMAL (CKD) Mannitol (Mannitol 20%) 12.5 GM ASDIR PRN IV Sodium Chloride (SODIUM CHLORIDE 0.9%) 2,000 ML ASDIR PRN IV Sodium Chloride (SODIUM CHLORIDE) 5 ML ASDIR PRN IV Sodium Chloride (SODIUM CHLORIDE) 10 ML ASDIR PRN IV Sodium Chloride (SODIUM CHLORIDE 0.9%) 250 ML ASDIR PRN IV Aspirin (ASPIRIN) 81 MG DAILY [...] 4 MG Q4H PRN PRN IV Physical ExamGeneral appearance: alert, awake, orientedHead/Eyes: atraumatic, EOMI, normal conjunctiva/sclera, normocephalic, PERRLAENT: moist mucosal membranesNeck: full range of motion, no bruit/NL carotids, no JVDCardiovascular: normal heart sounds, regular rate rhythmRespiratory: aerating well, clear to auscultation, symmetric expansion, no distressAbdomen: non-tender, normal bowel sounds, soft, no distention, no guarding, no reboundExtremities: moves all, no cyanosis, no edemaMusculoskeletal: normal inspectionNeuro/GIFT OFFICER: alert, oriented X 3, normal speech, no motor deficits, no sensory deficitsSkin: intact, normal color, no rashPsychiatry: normal affect ResultsFindings/Data:Laboratory Tests 07/08 07/08 1548 1449 Blood Gas [...] PT Patient/Control Mix (9.3 - 12.9 SECONDS) 12.9 Activated Coag Time (74 - 137 SEC) [...] (Auto) (14.0 - 32.0 %) 10.2 L Starke % (Auto) (4.8 - 9.0 %) 8.6 Eos % (Auto) (0.3 - 3.7 %) 10.2 H Baso % (Auto) (0.0 - 2.0 %) 0.7 Neut # (Auto) (2.0 - 7.6 x10 3/uL) 9.37 H Lymph # (Auto) (1.0 - 3.8 x10 3/uL) 1.38 Starke # (Auto) (0.1 - 0.8 x10 3/uL) 1.17 H Eos # (Auto) (0.0 - 0.2 x10 3/uL) 1.39 H Baso # (Auto) (0.0 - 0.2 x10 3/uL) 0.09 Abs Immat Gran (auto) (0.00 - 0.03 x10 3/uL) 0.19 H Add Manual Diff NO Immature Gran % (0.0 - 2.0 %) 1.4 Nucleated RBC % (0 - 0 %) 0.0 Nucleated RBCs # (Man) (0.0 - 0.1 x10 3/uL) 0.00 Diagnosis, Assessment PlanConsultants: cardiology, cardiovascular surgery, nephrology Free Text DxA P NotesFree text DxA P notes:Assessment and plans:CAD (coronary artery disease) patient presented with NSTEMI and found to hve severe CAD. Cardiac cath shows: Left Main - Distal 70% LAD - Proximal 80% with another 60% and 70% lessions Cir - Proximal 80%,mid 80-90%, Distal 70% and OM 60% RCA - large dominant with proximal 40%, Mid 60%. Patient on ASA, BB and Statin Cardiology and CV surgeon consulted echo: ef 30-34%, mod hypokinesis of entire myocardium, grade 1 diastolic dysfunction Carotid Dopplers negative PFTs pending PT/OT Plan for CABG today 07/08 Acute systolic heart failure Echocardiac with estimated LVEF of 30 to 34% with grade 1 diastolic dysfunction-s/p Lasix 20 mg twice daily 07/05 -on metoprolol 12.5 mg bid-no ACEI/ spironolactione for CLAUDETTE-Strict I's and O's, daily weights-Start GDMT prior to discharge CLAUDETTE (acute kidney injury) No prior Hx of renal disease. hx of BPH and treated with Fosamax w/o improvement nd continue to have difficulty urinating. On admission was found to be on acute renal filaure and had received HD twice prior to arrival here (thursday and thursday). Creatinine this am was 7.4, BUN 68 * Probably due to obstructive uropathy* waters already in place* Nephrology consuled for HD On daily hemodialysis as per nephrology HTN (hypertension) patient on metoprolol 12.5 mg BID, will adjust as needed On labetalol/hydralazine as needed Dyslipidemia on Lipitor 20mg po daliy. BPH (benign prostatic hyperplasia) Started on Flomax at the previous hospital, will continue with it. Waters catheter in place, continue Waters catheter as per nephrology 07/05 Goiter Hx of Goiter and surgical resection. TSH 3.33, within normal limits. Patient is not on Thyroid medication. anemia of chronic kidney disease Hemoglobin 9.5, monitor Hypokalemia resolved UTI continue Rocephin for empiric treatment pending results of urine culture No growth for 48 hours DVT prophylaxis: Heparin 5000 units every 8 hoursDiet: N.p.o. for CABGCODE STATUS: Full code Disposition: On daily hemodialysis, Waters catheter in place, plan for CABG today07/08. Continue CCU/CVICU care. Quality: Gen Med Crit Care VTE ProphylaxisVTE prophylaxis initiated: yes Current MedicationsCurrent medication review:I attest that the foregoing medication list in the medical record is true, accurate, and complete to the best of my knowledge. Advanced Care Plan 65 or OlderDiscussed with: patientDiscussion included: living will (none), power of school commissioner (none), code status (full code) at 1603 RPT #:[id number] OF REPORTPRProgress [id number]:45:[id number] Available for patient [id number]:03:32 HCACL 2022-07-08 08:45:00 [id number]:45:00 [facility] ([facility])Cardiology Progress NoteREPORT#:[id number] REPORT STATUS: SignedDATE:07/08/22 TIME: 0845 PATIENT: SHERRI ARCE UNIT #: [id number]#: [id number] [address] [birth year] AGE: 81 SEX: M ATTEND: Radha Ward [facility] AUTHOR: Jyoti Browning PREMIUM CARD CANCELLATION CLERK * ALL edits or amendments must be made on the electronic/computer document * SubjectiveChief complaint:surgery today Objective GeneralVS/I O:Laboratory Tests 07/08/22 0530:[Embedded Image Not Available] 07/07/22 0321:[Embedded Image Not Available]Current Medications Sig/Earl Start time Last Medication Dose Route Stop Time Status Admin Fentanyl Citrate 0 .STK-MED ONE 07/08 1255 DC IV Midazolam HCl 0 .STK-MED ONE 07/08 121 DC .ROUTE Papaverine HCl 0 .STK-MED ONE 07/08 1213 DC IV Albumin Human 100 ML .STK-MED ONE 07/08 112 DC IV Heparin Sodium 0 .STK-MED ONE 07/08 1128 DC .ROUTE Mannitol 500 ML .STK-MED ONE 07/08 112 DC IV Sodium Chloride 100 ML .STK-MED ONE 07/08 112 DC IV Lidocaine HCl 0 .STK-MED ONE 07/08 112 DC IV Magnesium Sulfate 0 .STK-MED ONE 07/08 1127 DC IV Phenylephrine HCl 0 .STK-MED ONE 07/08 1127 DC .ROUTE Sodium Bicarbonate 0 .STK-MED ONE 07/08 1127 DC IV Cefazolin Sodium 0 .STK-MED ONE 07/08 1112 DC .ROUTE Epinephrine HCl 250 ML .STK-MED ONE 07/08 938 DC IV Insulin Human Regular 100 ML .STK-MED ONE 07/08 938 DC IV Nitroglycerin/ 250 ML .K-MED ONE 07/08 938 DC Dextrose IV Norepinephrine 250 ML .[facility]-MED ONE 07/08 938 DC Bitartrate IV Magnesium Sulfate 0 .[facility]-MED ONE 07/08 937 DC .ROUTE Protamine Sulfate 0 .[facility]-MED ONE 07/08 937 DC IV Ropivacaine 0 .[facility]-MED ONE 07/08 937 DC .ROUTE Aminocaproic Acid 0 .[facility]-MED ONE 07/08 929 DC IV Heparin Sodium 0 .[facility]-MED ONE 07/08 924 DC .ROUTE Dexamethasone Sodium 0 .[facility]-MED ONE 07/08 923 DC Phosphate .ROUTE Lidocaine HCl 0 .[facility]-MED ONE 07/08 923 DC .ROUTE Ondansetron HCl 0 .[facility]-MED ONE 07/08 923 DC .ROUTE Rocuronium [place] 0 .[facility] ONE 07/08 923 DC IV Cefazolin Sodium 2 GM PREOP ONCALL 07/08 0500 CKD IV 07/08 235 Metoprolol Tartrate 6.25 MG ONCE ONE 07/08 0500 CAN PO 07/08 0501 Vancomycin HCl 1,250 MG PREOP ONCALL 07/08 050 CKD Sodium Chloride 250 ML IV 07/08 2359 Verapamil HCl 16.6 MG .Q24H ONE 07/08 050 CKD Heparin Sodium 1,660 UNIT IV 07/09 0459 (Porcine) Sodium Bicarbonate 0.7 ML Nitroglycerin/ 8.3 MG Dextrose Lactated Ringer's 949.5 ML Acetaminophen 1,000 MG PREOP ONCALL 07/07 223 CKD 07/08 PO 08/06 222 1117 Gabapentin 200 MG PREOP ONCALL 07/07 223 CKD 07/08 PO 08/06 235 1117 Sodium Chloride 20 ML ASDIR 07/07 2230 AC IV 08/06 222 Acetaminophen 1,000 MG PREOP ONCALL 07/07 0500 DC PO 07/07 235 Cefazolin Sodium 2 GM PREOP ONCALL 07/07 0500 DC IV 07/07 2359 Gabapentin 200 MG PREOP [...] Sodium Chloride 5 ML ASDIR PRN 07/06 223 AC IV 08/05 2229 Sodium Chloride 10 ML ASDIR PRN 07/06 2229 AC IV 08/05 2229 Sodium Chloride 250 ML ASDIR PRN 07/06 2229 AC IV 08/05 2229 Bisacodyl 10 MG DAILY PRN PRN 07/06 0930 AC RECTAL 08/05 0929 Polyethylene Glycol 17 GM DAILY 07/06 0921 AC 07/06 PO 08/05 0920 1130 Senna/Docusate Sodium 2 TAB DAILY 07/06 0921 AC 07/06 PO 08/05 0920 1130 Atorvastatin Calcium 20 MG BEDTIME 07/03 2100 AC 07/07 PO 08/02 2059 2152 Ceftriaxone Sodium 1,000 MG Q24H 07/03 [...] 2,000 ML ASDIR PRN 07/03 1200 AC 07/07 IV 08/03 1155 1813 Sodium Chloride 5 ML ASDIR PRN 07/03 1200 AC IV 08/02 1159 Sodium Chloride 10 ML ASDIR PRN 07/03 1200 AC 07/07 IV 08/02 1159 1815 Sodium Chloride 250 ML ASDIR PRN 07/03 1200 AC IV 08/02 1159 Aspirin 81 MG DAILY 07/03 09 AC 07/08 PO 08/02 0859 0925 Metoprolol Tartrate 12.5 MG BID 07/03 09 AC 07/08 PO 08/02 0859 0925 Mupirocin 1 APPLIC BID 07/03 0900 DC 07/07 NASAL 07/07 210 2152 Tamsulosin HCl 0.4 MG BEDTIME 07/02 2144 AC 07/07 PO 08/01 Docusate Sodium 100 MG BID [...] 07/07 2300 97 23 110/55 73 91 01/30 2200 85 19 101/61 76 97 07/07 2126 36.5 82 22 128/67 94 Room air 07/07 2115 83 21 116/65 85 95 07/07 2100 84 24 123/65 87 94 07/075 87 27 110/59 79 93 07/07 2030 [...] 120/72 91 97 PATIENT WEIGHT: Weight (lb): 185Weight (oz): 3.01Weight (kg): 84.000 Physical ExamGeneral appearance: alert, awake, oriented, no acute distress, pleasantHead/Eyes: atraumatic, clear corneaENT: moist mucosal membranesNeck: full range of motion, no JVDCardiovascular: CV assessment: regular rate and rhythm, no murmurRespiratory: decreased breath sounds, no distressAbdomen: soft, non-tender, normal bowel sounds, no distention, no guardingGenitourinary: urinary catheter, urineUpper extremity: UE assessment: normal temperature, no edemaLower extremity: LE assessment: normal temperature, no edemaNeuro/GIFT OFFICER: alert, oriented X 3, normal speechPsychiatry: normal affect Diagnosis, Assessment PlanProblem List/A P: 1. HTN (hypertension) 2. CLAUDETTE (acute kidney injury) 3. CAD (coronary artery disease) 4. Dyslipidemia 5. BPH (benign prostatic hyperplasia) Consultants: cardiology, cardiovascular surgery, nephrology Free Text DxA P NotesFree Text DxA P Notes:Mr. Arce is a pleasant 81 y/o M w/ PMHx: HTN, HLD presented to [facility] on 06/28/22 for chest pain and sob. He was diagnosed NSTEMI w/ [...] and diffuse 50-60% dRCA. He transferred to [facility] for CABG. - CAD/NSTEMI. Per CTS. s/p LHC: multivessel disease. Carotid u/s -no stenosis CT chest small bilateral fluid effusion and atelectasis. On statins, BB, ASA. Echo: LVEF 30-34% Plans for CABG- today- post-op per CTS- will follow - Acute Systolic HF with ischemic CMP LVEF 30-34% strict I/Os, daily weights, fluid restriction, low NA diet diuresis per Nephrology no charly/arb/aldactone due to CLAUDETTE appears compensated GDMT on discharge follow post-op - CLAUDETTE. HD Per nephro. likly from obstructive uropathy. s/p waters cath. Renal ultrasound showed severe thickening of the bladder, cholelitiasis. - HTN. Bp controlled. monitor post-op - HLD. On statins. - Anemia. stable, monitor post-op continue supportive care at 1350 at 0834 RPT #:[id number] OF REPORTPRProgress [id number]:45:[id number] Available for patient [id number]:50:30 [facility] 2022-07-08 08:29:00 [id number] [address] PATIENT NAME: SHERRI ARCE ADMIT DATE: 07/02/22ACCOUNT NO: [id number] ROOM NO: [facility] AGE: 81 REPORT TYPE: CARDIAC CATHETERIZATION REPORT SEX: M ADMITTING PHYSICIAN:Radha Ward MD ATTENDING PHYSICIAN:Radha Ward MD PROCEDURE DATE: 07/08/2022 SPIROMETRY: FVC is 193% of predicted. FEV1 is 158% of predicted. Ratio is 55. Next, PFT showed obstructive impairment, mild COPD. Dictated By: Valorie Garcia MD Date Dictated: 07/08/2022 08:29:47Date Transcribed: 07/08/2022 08:43:59MD/RAJJob #: [id number] ID: [id number] by VALORIE GARCIA MD On 07/08/2022 03:21:03 PM at 0321 PATIENT NAME: SHERRI ARCE [id number]:43:00G.[id number] vailable for patient [id number]:21:43 [facility]L 2022-07-07 17:37:00 [id number]:37:00 [facility] ([facility])Nephrology Progress NoteREPORT#:[id number] REPORT STATUS: SignedDATE:07/07/22 TIME: 1737 PATIENT: SHERRI ARCE UNIT #: [id number]#: [id number] [address] [birth year] AGE: 81 SEX: M ATTEND: Radha Ward AUTHOR: Evelina Plaza MD * ALL edits or amendments must be made on the electronic/computer document * SubjectiveChief complaint:Has no chest pain or shortness of breath. Adequate urine output volume. Objective GeneralVS/I O:Vital Signs: Date Time Temp Pulse Resp B/P B/P Pulse O2 O2 Flow FiO2 Mean Ox Delivery Rate 07/07 1600 [...] scale Measurement Method PATIENT WEIGHT: Weight (lb): 187Weight (oz): 6.29Weight (kg): 85.000 MedicationsActive Meds + DC'd Last 24 HrsPapaverine HCl (PAPAVERINE HCL) 0 .STK-MED ONE IV (DC) Magnesium Sulfate (MAGNESIUM SULFATE 2GM/SWFI 50ML) 50 ML ONCE ONE IV (DC) Acetaminophen (TYLENOL EXTRA STRENGTH) 1,000 MG PREOP ONCALL PO (CKD) Cefazolin Sodium (KEFZOL OR ANCEF) 2 GM PREOP ONCALL IV (CKD) Gabapentin (NEURONTIN) 200 MG PREOP ONCALL PO (CKD) Metoprolol Tartrate (LOPRESSOR) 6.25 MG ONCE ONE PO (DC) Sodium Chloride (SODIUM CHLORIDE) 20 ML ASDIR IV Vancomycin HCl (VANCOMYCIN HCL) 1,250 MG PREOP ONCALL IV (CKD) Sodium Chloride (SODIUM CHLORIDE 0.9%) 250 MLVerapamil HCl (ISOPTIN) 16.6 MG .Q24H ONE IV (CKD) Heparin Sodium (Porcine) (HEPARIN SODIUM) 1,660 UNIT Sodium Bicarbonate (SODIUM BICARBONATE) 0.7 ML Nitroglycerin/Dextrose (NITROGLYCERIN 50MG/D5W 250ML) 8.3 MG Lactated Ringer's (LACTATED RINGERS) 949.5 MLLidocaine HCl (LIDOCAINE HCL/PF) 2 ML PREOP ONCALL LOCAL Lidocaine HCl (LIDOCAINE HCL/PF) 2 ML PREOP ONCALL LOCAL Sodium Chloride (SODIUM CHLORIDE 0.9%) 500 ML PREOP ONCALL IV Sodium Chloride (SODIUM CHLORIDE 0.9%) 500 ML PREOP ONCALL IV Sodium Chloride (SODIUM CHLORIDE) 5 ML ASDIR PRN IV Sodium Chloride (SODIUM CHLORIDE) 10 ML ASDIR PRN IV Sodium Chloride (SODIUM CHLORIDE 0.9%) 250 ML ASDIR PRN IV Bisacodyl (DULCOLAX) 10 MG DAILY PRN PRN RECTAL Polyethylene Glycol (MIRALAX) 17 GM DAILY PO Senna/Docusate Sodium (SENOKOT S) 2 TAB DAILY PO Atorvastatin Calcium (LIPITOR) 20 MG BEDTIME PO Ceftriaxone Sodium (ROCEPHIN 1000MG VIAL) 1,000 MG Q24H IV Sodium Chloride (SODIUM CHLORIDE) 10 MLAlbumin Human (ALBUMINAR-25%) 12.5 GM ASDIR PRN IV Heparin Sodium (Porcine) (HEPARIN SODIUM) 3,000 UNIT ASDIR PRN DIALYSIS Lidocaine HCl (LIDOCAINE HCL/PF) 0.5 ML ASDIR PRN I-DERMAL (CKD) Mannitol (Mannitol 20%) 12.5 GM ASDIR PRN IV Sodium Chloride (SODIUM CHLORIDE 0.9%) 2,000 ML ASDIR PRN IV Sodium Chloride (SODIUM CHLORIDE) 5 ML ASDIR PRN IV Sodium Chloride (SODIUM CHLORIDE) 10 ML ASDIR PRN IV Sodium Chloride (SODIUM CHLORIDE 0.9%) 250 ML ASDIR PRN IV Aspirin (ASPIRIN) 81 MG DAILY PO Metoprolol Tartrate (LOPRESSOR) 12.5 MG BID PO Mupirocin (BACTROBAN 2% 22 GM OINTMENT) 1 APPLIC BID NASAL Tamsulosin HCl (Flomax 0.4 mg) 0.4 MG BEDTIME PO Docusate Sodium (COLACE) 100 MG BID PRN PRN PO Labetalol HCl (LABETALOL HCL) 10 MG Q6H PRN PRN IV Ondansetron HCl (ZOFRAN) 4 MG Q4H PRN PRN IV Physical ExamGeneral appearance: alert, awake, orientedHead/eyes: atraumatic, normocephalicENT: moist mucous membranes, normal noseNeck: non-tender, no JVDCardiovascular: regular rate and rhythm, no murmurRespiratory: normal breath sounds, no distressAbdomen: no guarding, no reboundExtremities: non-tender, no edemaSkin: dry, no rash ResultsFindings/Data:Laboratory Tests 07/07 07/07 07/07 1147 0321 0321 [...] PT Patient/Control Mix (9.3 - 12.9 SECONDS) 13.4 H Laboratory Tests 07/07 0321 Hematology WBC [...] (Auto) (14.0 - 32.0 %) 10.6 L Starke % (Auto) (4.8 - 9.0 %) 9.5 H Eos % (Auto) (0.3 - 3.7 %) 11.7 H Baso % (Auto) (0.0 - 2.0 %) 0.8 Neut # (Auto) (2.0 - 7.6 x10 3/uL) 7.61 H Lymph # (Auto) (1.0 - 3.8 x10 3/uL) 1.23 Starke # (Auto) (0.1 - 0.8 x10 3/uL) 1.10 H Eos # (Auto) (0.0 - 0.2 x10 3/uL) 1.35 H Baso # (Auto) (0.0 - 0.2 x10 3/uL) 0.09 Abs Immat Gran (auto) (0.00 - 0.03 x10 3/uL) 0.20 H Add Manual Diff NO Immature Gran % (0.0 - 2.0 %) 1.7 Nucleated RBC % (0 - 0 %) 0.0 Nucleated RBCs # (Man) (0.0 - 0.1 x10 3/uL) 0.00 Diagnosis, Assessment PlanFree Text A P:Assessment:1-CLAUDETTE likely from urinary retention. 2- non-STEMI: multivessel disease w main left. 3- BPH4-severe bilateral wqolstiohsnamt4-aaqsfixzfoou6-sidvlamemkvbxc Plan:-unknown Scr baseline. - He underwent LHC on 07/03. Started on HD without UF on 07/04 for clearance-HD today for clearance- CABG scheduled for 1/31- Ultrasound showed severe bilateral hydronephrosis-Excellent urine output volume with Waters catheter. Suspect renal recovery. - continue Waters catheter and strict intake and output- okay for cardiac diet. Discussed with patient and cardiothoracic surgery team Consultants: cardiology, cardiovascular surgery, nephrology at 1739 RPT #:[id number] OF REPORTPRProgress [id number]:37:[id number] Available for patient [id number]:40:07 [facility] 2022-07-07 11:03:00 [id number]:03:00 [facility] ([facility])Cardiology Progress NoteREPORT#:[id number] REPORT STATUS: SignedDATE:07/07/22 TIME: 1103 PATIENT: SHERRI ARCE UNIT #: [id number]#: [id number] [address] [birth year] AGE: 81 SEX: M ATTEND: Radha Ward [facility] AUTHOR: Jyoti Browning NP * ALL edits or amendments must be made on the electronic/computer document * SubjectiveChief complaint:doing okscheduled for surgery today Objective GeneralVS/I O:Laboratory Tests 07/07/22 0321:[Embedded Image Not Available] 07/06/22 0458:[Embedded Image Not Available]Current Medications Sig/Earl Start time Last Medication Dose Route Stop Time Status Admin Papaverine HCl 0 .STK-MED ONE 07/07 0840 DC IV Magnesium Sulfate 50 ML ONCE ONE 07/07 0615 DC 07/07 IV 07/07 0814 0640 Acetaminophen 1,000 MG PREOP ONCALL 07/07 0500 CKD PO 07/07 235 Cefazolin Sodium 2 GM PREOP ONCALL 07/07 0500 CKD IV 07/07 235 Gabapentin 200 MG PREOP ONCALL 07/07 0500 CKD PO 07/07 235 Metoprolol Tartrate 6.25 MG ONCE ONE 07/07 [...] Sodium Chloride 5 ML ASDIR PRN 07/06 223 AC IV 08/05 2229 Sodium Chloride 10 ML ASDIR PRN 07/06 223 AC IV 08/05 2229 Sodium Chloride 250 ML ASDIR PRN 07/06 223 AC IV 08/05 2229 Bisacodyl 10 MG DAILY PRN PRN 07/06 0930 AC RECTAL 08/05 0929 Polyethylene Glycol 17 GM DAILY 07/06 0921 AC 07/06 PO 08/05 0920 1130 Senna/Docusate Sodium 2 TAB DAILY 07/06 0921 AC 07/06 PO 08/05 0920 1130 Atorvastatin Calcium 20 MG BEDTIME 07/03 2100 AC 07/06 PO 08/02 2052000 Ceftriaxone Sodium 1,000 MG Q24H 07/03 1600 AC 07/06 Sodium Chloride 10 ML IV 07/08 1559 1627 Heparin Sodium 5,000 UNIT Q8HR 07/03 1400 DC 07/06 SUBQ 08/02 1359 0615 Albumin Human [...] 2,000 ML ASDIR PRN 07/03 1200 AC 07/06 IV 08/03 1155 1209 Sodium Chloride 5 ML ASDIR PRN 07/03 1200 AC IV 08/02 1159 Sodium Chloride 10 ML ASDIR PRN 07/03 1200 AC 07/06 IV 08/02 1159 1211 Sodium Chloride 250 ML ASDIR PRN 07/03 1200 AC IV 08/02 1159 Aspirin 81 MG DAILY 07/03 0900 AC 07/07 PO 08/02 0859 0858 Metoprolol Tartrate 12.5 MG BID 07/03 09 AC 07/07 PO 08/02 0859 0857 Mupirocin 1 APPLIC BID 07/03 09 AC 07/07 NASAL 07/07 2101 0858 Tamsulosin HCl 0.4 MG BEDTIME 07/02 2144 AC 07/06 PO 08/01 Docusate Sodium 100 MG BID [...] O2 Flow FiO2 Mean Ox Delivery Rate 07/07 1300 [...] 124/68 90 95 PATIENT WEIGHT: Weight (lb): 187Weight (oz): 6.29Weight (kg): 85.000 Physical ExamGeneral appearance: alert, awake, oriented, no acute distress, pleasantHead/Eyes: atraumatic, clear corneaENT: moist mucosal membranesNeck: full range of motion, no JVDCardiovascular: CV assessment: regular rate and rhythm, no murmurRespiratory: decreased breath sounds, no distressAbdomen: soft, non-tender, normal bowel sounds, no distention, no guardingGenitourinary: urinary catheter, urineUpper extremity: UE assessment: normal temperature, no edemaLower extremity: LE assessment: normal temperature, no edemaNeuro/GIFT OFFICER: alert, oriented X 3, normal speechPsychiatry: normal affect Diagnosis, Assessment PlanProblem List/A P: 1. HTN (hypertension) 2. CLAUDETTE (acute kidney injury) 3. CAD (coronary artery disease) 4. Dyslipidemia 5. BPH (benign prostatic hyperplasia) Consultants: cardiology, cardiovascular surgery, nephrology Free Text DxA P NotesFree Text DxA P Notes:Mr. Arce is a pleasant 81 y/o M w/ PMHx: HTN, HLD presented to [facility] on 06/28/22 for chest pain and sob. He was diagnosed NSTEMI w/ [...] and diffuse 50-60% dRCA. He transferred to [facility] for CABG. - CAD/NSTEMI. Per CTS. s/p LHC: multivessel disease. Carotid u/s -no stenosis CT chest small bilateral fluid effusion and atelectasis. On statins, BB, ASA. Echo: LVEF 30-34% Plans for CABG- today- post-op per CTS- monitor - Acute Systolic HF with ischemic CMP LVEF 30-34% strict I/Os, daily weights, fluid restriction, low NA diet diuresis per Nephrology no charly/arb/aldactone due to CLAUDETTE appears compensated GDMT on discharge follow post-op - CLAUDETTE. HD Per nephro. likly from obstructive uropathy. s/p waters cath. Renal ultrasound showed severe thickening of the bladder, cholelitiasis. - HTN. Bp controlled. Cont - HLD. On statins. - Anemia. stable, monitor post-op continue supportive care at 1432 at 0834 RPT #:[id number] OF REPORTPRProgress [id number]:03:[id number] Available for patient [id number]:33:04 [facility] 2022-07-07 08:33:00 [id number]:33:00 [facility] ([facility])Hospitalist Progress NoteREPORT#:[id number] REPORT STATUS: SignedDATE:07/07/22 TIME: 832 PATIENT: SHERRI ARCE UNIT #: [id number]#: [id number] [address] [birth year] AGE: 81 SEX: M ATTEND: Radha Ward AUTHOR: Radha Ward MD * ALL edits or amendments must be made on the electronic/computer document * SubjectiveChief complaint:Patient sleeping comfortably, no new issues as per RN. Waiting for CABG todayHPI:81 y/o man with PMHx of HTN, Dyslipidemia [facility] and found to have a NSTEMI and also acute renal failure. Underwent cardiac cath yesterday and found to have severe CAD including left main disease. Transfer here for CABG evaluation. He also underwent HD Thursday and Thursday of this week. HD catheter was place at [facility]. Currently not having any chest pain. Had chest pain with SOB when he presentted to the previous hospital. Objective GeneralVS/I O:Vital Signs: Date Time Temp Pulse Resp B/P B/P Pulse O2 O2 Flow FiO2 Mean Ox Delivery Rate 07/07 1300 [...] scale Measurement Method PATIENT WEIGHT: Weight (lb): 187Weight (oz): 6.29Weight (kg): 85.000 Medications:Active Meds + DC'd Last 24 HrsPapaverine HCl (PAPAVERINE HCL) 0 .STK-MED ONE IV (DC) Magnesium Sulfate (MAGNESIUM SULFATE 2GM/SWFI 50ML) 50 ML ONCE ONE IV (DC) Acetaminophen (TYLENOL EXTRA STRENGTH) 1,000 MG PREOP ONCALL PO (CKD) Cefazolin Sodium (KEFZOL OR ANCEF) 2 GM PREOP ONCALL IV (CKD) Gabapentin (NEURONTIN) 200 MG PREOP ONCALL PO (CKD) Metoprolol Tartrate (LOPRESSOR) 6.25 MG ONCE ONE PO (DC) Sodium Chloride (SODIUM CHLORIDE) 20 ML ASDIR IV Vancomycin HCl (VANCOMYCIN HCL) 1,250 MG PREOP ONCALL IV (CKD) Sodium Chloride (SODIUM CHLORIDE 0.9%) 250 MLVerapamil HCl (ISOPTIN) 16.6 MG .Q24H ONE IV (CKD) Heparin Sodium (Porcine) (HEPARIN SODIUM) 1,660 UNIT Sodium Bicarbonate (SODIUM BICARBONATE) 0.7 ML Nitroglycerin/Dextrose (NITROGLYCERIN 50MG/D5W 250ML) 8.3 MG Lactated Ringer's (LACTATED RINGERS) 949.5 MLLidocaine HCl (LIDOCAINE HCL/PF) 2 ML PREOP ONCALL LOCAL Lidocaine HCl (LIDOCAINE HCL/PF) 2 ML PREOP ONCALL LOCAL Sodium Chloride (SODIUM CHLORIDE 0.9%) 500 ML PREOP ONCALL IV Sodium Chloride (SODIUM CHLORIDE 0.9%) 500 ML PREOP ONCALL IV Sodium Chloride (SODIUM CHLORIDE) 5 ML ASDIR PRN IV Sodium Chloride (SODIUM CHLORIDE) 10 ML ASDIR PRN IV Sodium Chloride (SODIUM CHLORIDE 0.9%) 250 ML ASDIR PRN IV Bisacodyl (DULCOLAX) 10 MG DAILY PRN PRN RECTAL Polyethylene Glycol (MIRALAX) 17 GM DAILY PO Senna/Docusate Sodium (SENOKOT S) 2 TAB DAILY PO Atorvastatin Calcium (LIPITOR) 20 MG BEDTIME PO Ceftriaxone Sodium (ROCEPHIN 1000MG VIAL) 1,000 MG Q24H IV Sodium Chloride (SODIUM CHLORIDE) 10 MLAlbumin Human (ALBUMINAR-25%) 12.5 GM ASDIR PRN IV Heparin Sodium (Porcine) (HEPARIN SODIUM) 3,000 UNIT ASDIR PRN DIALYSIS Lidocaine HCl (LIDOCAINE HCL/PF) 0.5 ML ASDIR PRN I-DERMAL (CKD) Mannitol (Mannitol 20%) 12.5 GM ASDIR PRN IV Sodium Chloride (SODIUM CHLORIDE 0.9%) 2,000 ML ASDIR PRN IV Sodium Chloride (SODIUM CHLORIDE) 5 ML ASDIR PRN IV Sodium Chloride (SODIUM CHLORIDE) 10 ML ASDIR PRN IV Sodium Chloride (SODIUM CHLORIDE 0.9%) 250 ML ASDIR PRN IV Aspirin (ASPIRIN) 81 MG DAILY PO Metoprolol Tartrate (LOPRESSOR) 12.5 MG BID PO Mupirocin (BACTROBAN 2% 22 GM OINTMENT) 1 APPLIC BID NASAL Tamsulosin HCl (Flomax 0.4 mg) 0.4 MG BEDTIME PO Docusate Sodium (COLACE) 100 MG BID PRN PRN PO Labetalol HCl (LABETALOL HCL) 10 MG Q6H PRN PRN IV Ondansetron HCl (ZOFRAN) 4 MG Q4H PRN PRN IV Physical ExamGeneral appearance: sleeping comfortablyHead/Eyes: atraumatic, EOMI, normal conjunctiva/sclera, normocephalic, PERRLAENT: moist mucosal membranesNeck: full range of motion, no bruit/NL carotids, no JVDCardiovascular: normal heart sounds, regular rate rhythmRespiratory: aerating well, clear to auscultation, symmetric expansion, no distressAbdomen: non-tender, normal bowel sounds, soft, no distention, no guarding, no reboundExtremities: moves all, no cyanosis, no edemaMusculoskeletal: normal inspectionNeuro/GIFT OFFICER: alert, oriented X 3, normal speech, no motor deficits, no sensory deficitsSkin: intact, normal color, no rashPsychiatry: normal affect ResultsFindings/Data:Laboratory Tests 07/07 07/07 07/07 1147 0321 0321 [...] Coagulation INR (0.8 - 1.2) 1.2 PTT ([place]) (25.0 - 39.5 Seconds) 33.5 PT Patient/Control Mix (9.3 - 12.9 SECONDS) 13.4 H Laboratory Tests 07/07 0321 Hematology WBC [...] (Auto) (14.0 - 32.0 %) 10.6 L Starke % (Auto) (4.8 - 9.0 %) 9.5 H Eos % (Auto) (0.3 - 3.7 %) 11.7 H Baso % (Auto) (0.0 - 2.0 %) 0.8 Neut # (Auto) (2.0 - 7.6 x10 3/uL) 7.61 H Lymph # (Auto) (1.0 - 3.8 x10 3/uL) 1.23 Starke # (Auto) (0.1 - 0.8 x10 3/uL) 1.10 H Eos # (Auto) (0.0 - 0.2 x10 3/uL) 1.35 H Baso # (Auto) (0.0 - 0.2 x10 3/uL) 0.09 Abs Immat Gran (auto) (0.00 - 0.03 x10 3/uL) 0.20 H Add Manual Diff NO Immature Gran % (0.0 - 2.0 %) 1.7 Nucleated RBC % (0 - 0 %) 0.0 Nucleated RBCs # (Man) (0.0 - 0.1 x10 3/uL) 0.00 Diagnosis, Assessment PlanConsultants: cardiology, cardiovascular surgery, nephrology Free Text DxA P NotesFree text DxA P notes:Assessment and plans:CAD (coronary artery disease) patient presented with NSTEMI and found to hve severe CAD. Cardiac cath shows: Left Main - Distal 70% LAD - Proximal 80% with another 60% and 70% lessions Cir - Proximal 80%,mid 80-90%, Distal 70% and OM 60% RCA - large dominant with proximal 40%, Mid 60%. Patient on ASA, BB and Statin Cardiology and CV surgeon consulted echo: ef 30-34%, mod hypokinesis of entire myocardium, grade 1 diastolic dysfunction Carotid Dopplers negative PFTs pending PT/OT Plan for CABG today 07/07 Acute systolic heart failure Echocardiac with estimated LVEF of 30 to 34% with grade 1 diastolic dysfunction-s/p Lasix 20 mg twice daily 07/05 -on metoprolol 12.5 mg bid-no ACEI/ spironolactione for CLAUDETTE-Strict I's and O's, daily weights-Start GDMT prior to discharge CALUDETTE (acute kidney injury) No prior Hx of renal disease. hx of BPH and treated with Fosamax w/o improvement nd continue to have difficulty urinating. On admission was found to be on acute renal filaure and had received HD twice prior to arrival here (thursday and thursday). Creatinine this am was 7.4, BUN 68 * Probably due to obstructive uropathy* waters already in place* Nephrology consuled for HD On daily hemodialysis as per nephrology HTN (hypertension) patient on metoprolol 12.5 mg BID, will adjust as needed On labetalol/hydralazine as needed Dyslipidemia on Lipitor 20mg po daliy. BPH (benign prostatic hyperplasia) Started on Flomax at the previous hospital, will continue with it. Waters catheter in place, continue Waters catheter as per nephrology 07/05 Goiter Hx of Goiter and surgical resection. TSH 3.33, within normal limits. Patient is not on Thyroid medication. anemia of chronic kidney disease Hemoglobin 9.5, monitor Hypokalemia resolved UTI continue Rocephin for empiric treatment pending results of urine culture No growth for 48 hours DVT prophylaxis: Heparin 5000 units every 8 hoursDiet: N.p.o. for CABGCODE STATUS: Full code Disposition: On daily hemodialysis, Waters catheter in place, plan for CABG today07/07. Continue CCU care. Quality: Gen Med Crit Care VTE ProphylaxisVTE prophylaxis initiated: yes Current MedicationsCurrent medication review:I attest that the foregoing medication list in the medical record is true, accurate, and complete to the best of my knowledge. Advanced Care Plan 65 or OlderDiscussed with: patientDiscussion included: living will (none), power of school commissioner (none), code status (full code) at 1543 RPT #:[id number] OF REPORTPRProgress [id number]:33:[id number] Available for patient [id number]:44:16 [facility] 2022-07-06 15:45:00 [id number]:45:00 [facility] ([facility])Nephrology Progress NoteREPORT#:[id number] REPORT STATUS: SignedDATE:07/06/22 TIME: 1545 PATIENT: SHERRI ARCE UNIT #: [id number]#: [id number] [address] [birth year] AGE: 81 SEX: M ATTEND: Radha Ward [facility] AUTHOR: Jackie Wan MD * ALL edits or amendments must be made on the electronic/computer document * SubjectiveChief complaint:Has no chest pain or shortness of breath Review of SystemsConstitutional:Reports: generalized weakness. All systems rev neg: except as marked Objective GeneralVS/I O:Vital Signs: Date Time Temp Pulse Resp B/P [...] scale Measurement Method PATIENT WEIGHT: Weight (lb): 184Weight (oz): 1.38Weight (kg): 83.500 MedicationsActive Meds + DC'd Last 24 HrsAcetaminophen (TYLENOL EXTRA STRENGTH) 1,000 MG PREOP ONCALL PO (CKD) Cefazolin Sodium (KEFZOL OR ANCEF) 2 GM PREOP ONCALL IV (CKD) Gabapentin (NEURONTIN) 200 MG PREOP ONCALL PO (CKD) Metoprolol Tartrate (LOPRESSOR) 6.25 MG ONCE ONE PO Sodium Chloride (SODIUM CHLORIDE) 20 ML ASDIR IV Vancomycin HCl (VANCOMYCIN HCL) 1,250 MG PREOP ONCALL IV (CKD) Sodium Chloride (SODIUM CHLORIDE 0.9%) 250 MLVerapamil HCl (ISOPTIN) 16.6 MG .Q24H ONE IV (CKD) Heparin Sodium (Porcine) (HEPARIN SODIUM) 1,660 UNIT Sodium Bicarbonate (SODIUM BICARBONATE) 0.7 ML Nitroglycerin/Dextrose (NITROGLYCERIN 50MG/D5W 250ML) 8.3 MG Lactated Ringer's (LACTATED RINGERS) 949.5 MLBisacodyl (DULCOLAX) 10 MG DAILY PRN PRN RECTAL (DC) Bisacodyl (DULCOLAX) 10 MG DAILY PRN PRN RECTAL Polyethylene Glycol (MIRALAX) 17 GM DAILY PO Senna/Docusate Sodium (SENOKOT S) 2 TAB DAILY PO Furosemide (LASIX 20MG INJ) 20 MG BID 9A 5P IV (DC) Atorvastatin Calcium (LIPITOR) 20 MG BEDTIME PO Ceftriaxone Sodium (ROCEPHIN 1000MG VIAL) 1,000 MG Q24H IV Sodium Chloride (SODIUM CHLORIDE) 10 MLHeparin Sodium (HEPARIN 5000 UNITS/ML) 5,000 UNIT Q8HR SUBQ (DC) Albumin Human (ALBUMINAR-25%) 12.5 GM ASDIR PRN IV Heparin Sodium (Porcine) (HEPARIN SODIUM) 3,000 UNIT ASDIR PRN DIALYSIS Lidocaine HCl (LIDOCAINE HCL/PF) 0.5 ML ASDIR PRN I-DERMAL (CKD) Mannitol (Mannitol 20%) 12.5 GM ASDIR PRN IV Sodium Chloride (SODIUM CHLORIDE 0.9%) 2,000 ML ASDIR PRN IV Sodium Chloride (SODIUM CHLORIDE) 5 ML ASDIR PRN IV Sodium Chloride (SODIUM CHLORIDE) 10 ML ASDIR PRN IV Sodium Chloride (SODIUM CHLORIDE 0.9%) 250 ML ASDIR PRN IV Aspirin (ASPIRIN) 81 MG DAILY PO Metoprolol Tartrate (LOPRESSOR) 12.5 MG BID PO Mupirocin (BACTROBAN 2% 22 GM OINTMENT) 1 APPLIC BID NASAL Tamsulosin HCl (Flomax 0.4 mg) 0.4 MG BEDTIME PO Docusate Sodium (COLACE) 100 MG BID PRN PRN PO Labetalol HCl (LABETALOL HCL) 10 MG Q6H PRN PRN IV Ondansetron HCl (ZOFRAN) 4 MG Q4H PRN PRN IV Physical ExamGeneral appearance: alert, awake, orientedHead/eyes: atraumatic, normocephalicENT: moist mucous membranes, normal noseNeck: non-tender, no JVDCardiovascular: regular rate and rhythm, no murmurRespiratory: normal breath sounds, no distressAbdomen: no guarding, no reboundExtremities: non-tender, no edemaSkin: dry, no rash ResultsFindings/Data:Laboratory Tests 07/068 Chemistry Sodium (134 - 147 mEq/L) 143 [...] (Auto) (14.0 - 32.0 %) 13.2 L Starke % (Auto) (4.8 - 9.0 %) 9.0 Eos % (Auto) (0.3 - 3.7 %) 12.7 H Baso % (Auto) (0.0 - 2.0 %) 0.8 Neut # (Auto) (2.0 - 7.6 x10 3/uL) 6.81 Lymph # (Auto) (1.0 - 3.8 x10 3/uL) 1.43 Starke # (Auto) (0.1 - 0.8 x10 3/uL) 0.98 H Eos # (Auto) (0.0 - 0.2 x10 3/uL) 1.38 H Baso # (Auto) (0.0 - 0.2 x10 3/uL) 0.09 Abs Immat Gran (auto) (0.00 - 0.03 x10 3/uL) 0.15 H Add Manual Diff NO Immature Gran % (0.0 - 2.0 %) 1.4 Nucleated RBC % (0 - 0 %) 0.0 Nucleated RBCs # (Man) (0.0 - 0.1 x10 3/uL) 0.00 Laboratory Tests 07/06 1350 Serology SARS-CoV-2 Ag (Rapid) (Negative) Negative Diagnosis, Assessment PlanFree Text A P:Assessment:1-CLAUDETTE likely from urinary retention. 2- non-STEMI: multivessel disease w main left. 3- BPH4-severe bilateral wzzpbazgmmbapv1--xzvsumxxrtubid Plan:-unknown Scr baseline. - He underwent LHC on 07/03. Had HD without UF on 07/04 for clearance-third treatment today on CTS request-one unit PRBC given today as per CTS request, going for surgery tomorrow- Ultrasound showed severe bilateral hydronephrosis-Excellent urine output volume 2900 mL. Suspect renal recovery. - continue Waters catheter and strict intake and output- CT surgery eval for CABG. plan for CABG on07/07- okay for cardiac diet. Discussed with patient and cardiothoracic surgery team Consultants: cardiology, cardiovascular surgery, nephrology at 1150 RPT #:[id number] OF REPORTPRProgress [id number]:45:[id number] Available for patient [id number]:53:58 [facility] 2022-07-06 12:53:00 [id number]:53:00 [facility] ([facility])Cardiothoracic Surgery ProgREPORT#:[id number] REPORT STATUS: SignedDATE:07/06/22 TIME: 1253 PATIENT: SHERRI ARCE UNIT #: [id number]#: [id number] [place] [facility]DOB: [birth year] AGE: 81 SEX: M ATTEND: Srinath Kaur MDADM AUTHOR: Rosalind Toribio [employer]MI[employer] C[employer] CANCELLATION CLERK * ALL edits or amendments must be made on the electronic/computer document * SubjectiveChief complaint:Chest PainPre CABG eval Review of SystemsConstitutional:Denies: chills, fever, malaise. Allergy/Immun:Denies: allergic reaction. Respiratory:Denies: SOB. Cardiovascular:Denies: chest pain, palpitations. GI:Denies: abdominal pain, nausea, vomiting. :Denies: dysuria, hematuria. Heme:Denies: bleeding. Neuro:Denies: dizziness, headache, vision change. All systems rev neg: except as marked Objective GeneralVS/I OLast Documented: Result Date Time Pulse Ox 97 [...] scale Measurement Method PATIENT WEIGHT: Weight (lb): 184Weight (oz): 1.38Weight (kg): 83.500 Physical ExamGeneral appearance: alert, oriented, mental status normal, no respiratory distressHEENT: anicteric, mucosal membranes moistNeck: supple/no meningismusCardiovascular: normal heart sounds, regular rate rhythmRespiratory: aerating well, symmetric expansion, no distressAbdomen: soft, non-tender, no distentionGenitourinary: waters, oN hd Extremities: moves allNeuro/GIFT OFFICER: alert, oriented X 3, normal speech, no motor deficitsPsychiatry: normal affect, normal mood Current MedicationsMedications:Active Meds + DC'd Last 24 HrsCefazolin Sodium (KEFZOL OR ANCEF) 2 GM PREOP ONCALL IV (UNV) Metoprolol Tartrate (LOPRESSOR) 6.25 MG ONCE ONE PO (UNV) Vancomycin HCl (VANCOMYCIN HCL) 1,252.5 MG PREOP ONCALL IV (UNi) Sodium Chloride (SODIUM CHLORIDE 0.9%) 250 MLVerapamil HCl (ISOPTIN) 16.6 MG .Q24H ONE IV (UNV) Heparin Sodium (Porcine) (HEPARIN SODIUM) 1,660 UNIT Sodium Bicarbonate (SODIUM BICARBONATE) 0.7 ML Nitroglycerin/Dextrose (NITROGLYCERIN 50MG/D5W 250ML) 8.3 MG Lactated Ringer's (LACTATED RINGERS) 949.5 MLAcetaminophen (TYLENOL EXTRA STRENGTH) 1,000 MG PREOP ONCALL PO (UNV) Gabapentin (NEURONTIN) 200 MG PREOP ONCALL PO (UNV) Sodium Chloride (SODIUM CHLORIDE) 20 ML ASDIR IV (UNV) Bisacodyl (DULCOLAX) 10 MG DAILY PRN PRN RECTAL (DC) Bisacodyl (DULCOLAX) 10 MG DAILY PRN PRN RECTAL Polyethylene Glycol (MIRALAX) 17 GM DAILY PO Senna/Docusate Sodium (SENOKOT S) 2 TAB DAILY PO Furosemide (LASIX 20MG INJ) 20 MG BID 9A 5P IV (DC) Atorvastatin Calcium (LIPITOR) 20 MG BEDTIME PO Ceftriaxone Sodium (ROCEPHIN 1000MG VIAL) 1,000 MG Q24H IV Sodium Chloride (SODIUM CHLORIDE) 10 MLHeparin Sodium (HEPARIN 5000 UNITS/ML) 5,000 UNIT Q8HR SUBQ Albumin Human (ALBUMINAR-25%) 12.5 GM ASDIR PRN IV Heparin Sodium (Porcine) (HEPARIN SODIUM) 3,000 UNIT ASDIR PRN DIALYSIS Lidocaine HCl (LIDOCAINE HCL/PF) 0.5 ML ASDIR PRN I-DERMAL (CKD) Mannitol (Mannitol 20%) 12.5 GM ASDIR PRN IV Sodium Chloride (SODIUM CHLORIDE 0.9%) 2,000 ML ASDIR PRN IV Sodium Chloride (SODIUM CHLORIDE) 5 ML ASDIR PRN IV Sodium Chloride (SODIUM CHLORIDE) 10 ML ASDIR PRN IV Sodium Chloride (SODIUM CHLORIDE 0.9%) 250 ML ASDIR PRN IV Aspirin (ASPIRIN) 81 MG DAILY PO Metoprolol Tartrate (LOPRESSOR) 12.5 MG BID PO Mupirocin (BACTROBAN 2% 22 GM OINTMENT) 1 APPLIC BID NASAL Tamsulosin HCl (Flomax 0.4 mg) 0.4 MG BEDTIME PO Docusate Sodium (COLACE) 100 MG BID PRN PRN PO Labetalol HCl (LABETALOL HCL) 10 MG Q6H PRN PRN IV Ondansetron HCl (ZOFRAN) 4 MG Q4H PRN PRN IV ResultsFindings/Data:Laboratory Tests 07/06 457 Chemistry Sodium (134 - [...] (Auto) (14.0 - 32.0 %) 13.2 L Starke % (Auto) (4.8 - 9.0 %) 9.0 Eos % (Auto) (0.3 - 3.7 %) 12.7 H Baso % (Auto) (0.0 - 2.0 %) 0.8 Neut # (Auto) (2.0 - 7.6 x10 3/uL) 6.81 Lymph # (Auto) (1.0 - 3.8 x10 3/uL) 1.43 Starke # (Auto) (0.1 - 0.8 x10 3/uL) 0.98 H Eos # (Auto) (0.0 - 0.2 x10 3/uL) 1.38 H Baso # (Auto) (0.0 - 0.2 x10 3/uL) 0.09 Abs Immat Gran (auto) (0.00 - 0.03 x10 3/uL) 0.15 H Add Manual Diff NO Immature Gran % (0.0 - 2.0 %) 1.4 Nucleated RBC % (0 - 0 %) 0.0 Nucleated RBCs # (Man) (0.0 - 0.1 x10 3/uL) 0.00 Quality: Trauma Gen Surg VTE Prophylaxis - GeneralVTE prophylaxis initiated: yes Diagnosis, Assessment PlanHospital course to date:This is a 81-year-old gentleman who presented to an outside hospital with complaints of chest pains while walking at his home on Thursday. He denies any previous history of coronary artery disease or other [place]. He was seen and evaluated at [facility]. He was found to have a urinary tract infection with urinary retention and acute kidney. He was started on dialysis via a left femoral temporary catheter. He underwent dialysis on Thursday, Thursday. Renal has been consultedDuring his work-up at outside hospital he underwent Left heart catheterization showing severe Left Main 70%. LAD: Proximal diffuse 80% stenosis and then diffuse 60% in the midsegment and on the distal segment, there is focal 70% stenosis. Diagonal branches with luminal irregularities. Left circumflex, codominant circulation with proximal 80%, mid 80 to 90% and then in the OM, there is proximal 60%, distal left circumflex has a 70% stenosis. RCA large and dominant with proximal 40% stenosis, mid 60% stenosis and then diffuse 50% stenosis all the way distally and the PLV and the PDA with luminal irregularities. CV surgery consulted for evaluation for coronary bypass graft. CAROTIDS- No carotid stenosis CT chest complete IMPRESSION: Small bilateral pleural effusions with bibasilar atelectasis. Echo:1. Left ventricle: The cavity size is at the upper limits of normal. Wall thickness is mildly increased. Systolic function is severely reduced. The estimated ejection fraction is 30-34%. Moderate hypokinesis of the entire myocardium. Doppler parameters are consistent with abnormal left ventricular relaxation (grade 1 diastolic dysfunction).2. Pericardium, extracardiac: A small pericardial effusion is identified along the left ventricular free wall, along the right ventricular free wall, and along the right atrial free wall. Assessment/Plan1) CAD Mutlivessel Will obtain echo,carotids. 2) CLAUDETTE Started dialysis on Creatine 7.3 Renal consulted. 3) BPH- Urinary retention. Waters in place Workup for CABG underway. Will get functional assessment with PT. PFT pending Carotid dopplers- No disease Echo PendingDialyiss per Renal. Baseline Cr unknown. 07/04 07/04 Doing well today, alert, up in the chair. Denies chest painEchocardiogram showed LVEF 30 to 34%, mild MR, trivial TRCT chest images reviewedEncourage I-S and mobilizationCreatinine 5.5 from 7.3, good urine output. Renal US showed bilateral severe hydronephrosis. Plan for HD today and tomorrow Will tentatively schedule patient for surgery on Thursday.Patient seen and plan reviewed with Dr Schwarz 07/05 Remains in a stable condition, denies chest pain BUN 53, creatinine 5.4. Plan for hemodialysis today and tomorrow for clearanceHe is also on Lasix 20 mg IV twice daily, urine output 1.1 L overnightWe will calculate risk of surgery with STS scoreEncourage I-S and mobilizationWill tentatively schedule patient for surgery on Thursday.Pt seen and plan reviewed with Dr Schwarz 07/06 BUN 36, creatinine 4.4. Plan for hemodialysis todayAwaiting CABG tomorrowSurgery, risks involved, STS score, benefits, complications and alternatives were explained to the patient. He acknowledged understanding and is willing to proceedN.p.o. after midnightPatient seen and plan reviewed with Dr. Schwarz Consultants: cardiology, cardiovascular surgery, nephrology at 1258 at 1948 RPT #:[id number] OF REPORTPRProgress [id number]:53:[id number] Available for patient [id number]:01:01 [facility] 2022-07-06 11:42:00 [id number]:42:00 [facility] ([facility])Hospitalist Progress NoteREPORT#:[id number] REPORT STATUS: SignedDATE:07/06/22 TIME: 1142 PATIENT: SHERRI ARCE UNIT #: [id number]#: [id number] [address] [birth year] AGE: 81 SEX: M ATTEND: Radha Ward [facility] AUTHOR: Radha Ward MD * ALL edits or amendments must be made on the electronic/computer document * SubjectiveChief complaint:No complaint. Plan to have dialysis today, waiting for CABG tomorrow, IV Lasix DC'dHPI:81 y/o man with PMHx of HTN, Dyslipidemia that [facility] with chest pain and found to have a NSTEMI and also acute renal failure. Underwent cardiac cath yesterday and found to have severe CAD including left main disease. Transfer here for CABG evaluation. He also underwent HD Thursday and Thursday of this week. HD catheter was place at [facility]. Currently not having any chest pain. Had chest pain with SOB when he presentted to the previous hospital. Objective GeneralVS/I O:Vital Signs: Date Time Temp Pulse Resp B/P [...] scale Measurement Method PATIENT WEIGHT: Weight (lb): 184Weight (oz): 1.38Weight (kg): 83.500 Medications:Active Meds + DC'd Last 24 HrsAcetaminophen (TYLENOL EXTRA STRENGTH) 1,000 MG PREOP ONCALL PO (CKD) Cefazolin Sodium (KEFZOL OR ANCEF) 2 GM PREOP ONCALL IV (CKD) Gabapentin (NEURONTIN) 200 MG PREOP ONCALL PO (CKD) Metoprolol Tartrate (LOPRESSOR) 6.25 MG ONCE ONE PO Sodium Chloride (SODIUM CHLORIDE) 20 ML ASDIR IV Vancomycin HCl (VANCOMYCIN HCL) 1,250 MG PREOP ONCALL IV (CKD) Sodium Chloride (SODIUM CHLORIDE 0.9%) 250 MLVerapamil HCl (ISOPTIN) 16.6 MG .Q24H ONE IV (CKD) Heparin Sodium (Porcine) (HEPARIN SODIUM) 1,660 UNIT Sodium Bicarbonate (SODIUM BICARBONATE) 0.7 ML Nitroglycerin/Dextrose (NITROGLYCERIN 50MG/D5W 250ML) 8.3 MG Lactated Ringer's (LACTATED RINGERS) 949.5 MLBisacodyl (DULCOLAX) 10 MG DAILY PRN PRN RECTAL (DC) Bisacodyl (DULCOLAX) 10 MG DAILY PRN PRN RECTAL Polyethylene Glycol (MIRALAX) 17 GM DAILY PO Senna/Docusate Sodium (SENOKOT S) 2 TAB DAILY PO Furosemide (LASIX 20MG INJ) 20 MG BID 9A 5P IV (DC) Atorvastatin Calcium (LIPITOR) 20 MG BEDTIME PO Ceftriaxone Sodium (ROCEPHIN 1000MG VIAL) 1,000 MG Q24H IV Sodium Chloride (SODIUM CHLORIDE) 10 MLHeparin Sodium (HEPARIN 5000 UNITS/ML) 5,000 UNIT Q8HR SUBQ (DC) Albumin Human (ALBUMINAR-25%) 12.5 GM ASDIR PRN IV Heparin Sodium (Porcine) (HEPARIN SODIUM) 3,000 UNIT ASDIR PRN DIALYSIS Lidocaine HCl (LIDOCAINE HCL/PF) 0.5 ML ASDIR PRN I-DERMAL (CKD) Mannitol (Mannitol 20%) 12.5 GM ASDIR PRN IV Sodium Chloride (SODIUM CHLORIDE 0.9%) 2,000 ML ASDIR PRN IV Sodium Chloride (SODIUM CHLORIDE) 5 ML ASDIR PRN IV Sodium Chloride (SODIUM CHLORIDE) 10 ML ASDIR PRN IV Sodium Chloride (SODIUM CHLORIDE 0.9%) 250 ML ASDIR PRN IV Aspirin (ASPIRIN) 81 MG DAILY PO Metoprolol Tartrate (LOPRESSOR) 12.5 MG BID PO Mupirocin (BACTROBAN 2% 22 GM OINTMENT) 1 APPLIC BID NASAL Tamsulosin HCl (Flomax 0.4 mg) 0.4 MG BEDTIME PO Docusate Sodium (COLACE) 100 MG BID PRN PRN PO Labetalol HCl (LABETALOL HCL) 10 MG Q6H PRN PRN IV Ondansetron HCl (ZOFRAN) 4 MG Q4H PRN PRN IV Physical ExamGeneral appearance: alert, awake, orientedHead/Eyes: atraumatic, EOMI, normal conjunctiva/sclera, normocephalic, PERRLAENT: moist mucosal membranesNeck: full range of motion, no bruit/NL carotids, no JVDCardiovascular: normal heart sounds, regular rate rhythmRespiratory: aerating well, clear to auscultation, symmetric expansion, no distressAbdomen: non-tender, normal bowel sounds, soft, no distention, no guarding, no reboundExtremities: moves all, no cyanosis, no edemaMusculoskeletal: normal inspectionNeuro/GIFT OFFICER: alert, oriented X 3, normal speech, no motor deficits, no sensory deficitsSkin: intact, normal color, no rashPsychiatry: normal affect ResultsFindings/Data:Laboratory Tests 07/06 0458 Chemistry Sodium (134 - [...] (Auto) (14.0 - 32.0 %) 13.2 L Starke % (Auto) (4.8 - 9.0 %) 9.0 Eos % (Auto) (0.3 - 3.7 %) 12.7 H Baso % (Auto) (0.0 - 2.0 %) 0.8 Neut # (Auto) (2.0 - 7.6 x10 3/uL) 6.81 Lymph # (Auto) (1.0 - 3.8 x10 3/uL) 1.43 Starke # (Auto) (0.1 - 0.8 x10 3/uL) 0.98 H Eos # (Auto) (0.0 - 0.2 x10 3/uL) 1.38 H Baso # (Auto) (0.0 - 0.2 x10 3/uL) 0.09 Abs Immat Gran (auto) (0.00 - 0.03 x10 3/uL) 0.15 H Add Manual Diff NO Immature Gran % (0.0 - 2.0 %) 1.4 Nucleated RBC % (0 - 0 %) 0.0 Nucleated RBCs # (Man) (0.0 - 0.1 x10 3/uL) 0.00 Laboratory Tests 07/06 1350 Serology SARS-CoV-2 Ag (Rapid) (Negative) Negative Diagnosis, Assessment PlanConsultants: cardiology, cardiovascular surgery, nephrology Free Text DxA P NotesFree text DxA P notes:Assessment and plans:CAD (coronary artery disease) patient presented with NSTEMI and found to hve severe CAD. Cardiac cath shows: Left Main - Distal 70% LAD - Proximal 80% with another 60% and 70% lessions Cir - Proximal 80%,mid 80-90%, Distal 70% and OM 60% RCA - large dominant with proximal 40%, Mid 60%. Patient on ASA, BB and Statin Cardiology and CV surgeon consulted echo: ef 30-34%, mod hypokinesis of entire myocardium, grade 1 diastolic dysfunction Carotid Dopplers negative PFTs pending PT/OT 07/07 Plan for CABG on Thursday Acute systolic heart failure Echocardiac with estimated LVEF of 30 to 34% with grade 1 diastolic dysfunction-s/p Lasix 20 mg twice daily 07/05 -on metoprolol 12.5 mg bid-no ACEI/ spironolactione for CLAUDETTE-Strict I's and O's, daily weights-Start GDMT prior to discharge CLAUDETTE (acute kidney injury) No prior Hx of renal disease. hx of BPH and treated with Fosamax w/o improvement nd continue to have difficulty urinating. On admission was found to be on acute renal filaure and had received HD twice prior to arrival here (thursday and thursday). Creatinine this am was 7.4, BUN 68 * Probably due to obstructive uropathy* waters already in place* Nephrology consuled for HD On daily hemodialysis as per nephrology HTN (hypertension) patient on metoprolol 12.5 mg BID, will adjust as needed On labetalol/hydralazine as needed Dyslipidemia on Lipitor 20mg po daliy. BPH (benign prostatic hyperplasia) Started on Flomax at the previous hospital, will continue with it. Waters catheter in place, continue Waters catheter as per nephrology 07/05 Goiter Hx of Goiter and surgical resection. TSH 3.33, within normal limits. Patient is not on Thyroid medication. anemia of chronic kidney disease Hemoglobin 9.5, monitor Hypokalemia resolved UTI continue Rocephin for empiric treatment pending results of urine culture No growth for 48 hours DVT prophylaxis: Heparin 5000 units every 8 hoursDiet: CardiacCODE STATUS: Full code Disposition: On daily hemodialysis, Waters catheter in place, plan for CABG on Friday 07/07. Continue CCU care. Quality: Gen Med Crit Care VTE ProphylaxisVTE prophylaxis initiated: yes Current MedicationsCurrent medication review:I attest that the foregoing medication list in the medical record is true, accurate, and complete to the best of my knowledge. Advanced Care Plan 65 or OlderDiscussed with: patientDiscussion included: living will (none), power of school commissioner (none), code status (full code) at 1628 RPT #:[id number] OF REPORTPRProgress [id number]:42:[id number] Available for patient [id number]:28:31 [facility] 2022-07-06 10:52:00 [id number]:52:00 [facility] ([facility])Cardiology Progress NoteREPORT#:[id number] REPORT STATUS: SignedDATE:07/06/22 TIME: 1052 PATIENT: SHERRI ARCE UNIT #: [id number]#: [id number] [address] [birth year] AGE: 81 SEX: M ATTEND: Radha Ward [facility] AUTHOR: Kasi Katz MD * ALL edits or amendments must be made on the electronic/computer document * SubjectiveChief complaint:doing ok Objective GeneralVS/I O:24 hour I O ending at 0700: 07/06 0700 07/05 1900 Intake Total 500 600 Output Total 1400 1100 Balance -900 -500 Intake, 0 Hemodialysis Intake, Oral 500 600 Output, Urine 1400 1100 Patient 83.5 kg Weight Weight Bed scale Measurement Method Vital Signs: Date Time Temp Pulse Resp B/P B/P Pulse O2 O2 Flow FiO2 Mean Ox Delivery Rate 07/06 0900 [...] 123/66 82 95 PATIENT WEIGHT: Weight (lb): 184Weight (oz): 1.38Weight (kg): 83.500 Medications:Active Meds + DC'd Last 24 HrsBisacodyl (DULCOLAX) 10 MG DAILY PRN PRN RECTAL (DC) Bisacodyl (DULCOLAX) 10 MG DAILY PRN PRN RECTAL Polyethylene Glycol (MIRALAX) 17 GM DAILY PO Senna/Docusate Sodium (SENOKOT S) 2 TAB DAILY PO Furosemide (LASIX 20MG INJ) 20 MG BID 9A 5P IV (DC) Atorvastatin Calcium (LIPITOR) 20 MG BEDTIME PO Ceftriaxone Sodium (ROCEPHIN 1000MG VIAL) 1,000 MG Q24H IV Sodium Chloride (SODIUM CHLORIDE) 10 MLHeparin Sodium (HEPARIN 5000 UNITS/ML) 5,000 UNIT Q8HR SUBQ Albumin Human (ALBUMINAR-25%) 12.5 GM ASDIR PRN IV Heparin Sodium (Porcine) (HEPARIN SODIUM) 3,000 UNIT ASDIR PRN DIALYSIS Lidocaine HCl (LIDOCAINE HCL/PF) 0.5 ML ASDIR PRN I-DERMAL (CKD) Mannitol (Mannitol 20%) 12.5 GM ASDIR PRN IV Sodium Chloride (SODIUM CHLORIDE 0.9%) 2,000 ML ASDIR PRN IV Sodium Chloride (SODIUM CHLORIDE) 5 ML ASDIR PRN IV Sodium Chloride (SODIUM CHLORIDE) 10 ML ASDIR PRN IV Sodium Chloride (SODIUM CHLORIDE 0.9%) 250 ML ASDIR PRN IV Aspirin (ASPIRIN) 81 MG DAILY PO Metoprolol Tartrate (LOPRESSOR) 12.5 MG BID PO Mupirocin (BACTROBAN 2% 22 GM OINTMENT) 1 APPLIC BID NASAL Tamsulosin HCl (Flomax 0.4 mg) 0.4 MG BEDTIME PO Docusate Sodium (COLACE) 100 MG BID PRN PRN PO Labetalol HCl (LABETALOL HCL) 10 MG Q6H PRN PRN IV Ondansetron HCl (ZOFRAN) 4 MG Q4H PRN PRN IV Physical ExamGeneral appearance: alert, awake, orientedHead/Eyes: atraumatic, clear corneaENT: moist mucosal membranesNeck: full range of motion, no JVDCardiovascular: CV assessment: regular rate and rhythm, no murmurRespiratory: decreased breath sounds, no distressAbdomen: soft, non-tender, normal bowel sounds, no distention, no guardingGenitourinary: urinary catheter, urineUpper extremity: UE assessment: normal temperature, no edemaLower extremity: LE assessment: normal temperature, no edemaNeuro/GIFT OFFICER: alert, oriented X 3, normal speechPsychiatry: normal affect ResultsFindings/Data:Laboratory Tests 07/068 Chemistry Sodium (134 - 147 mEq/L) 143 [...] (Auto) (14.0 - 32.0 %) 13.2 L Starke % (Auto) (4.8 - 9.0 %) 9.0 Eos % (Auto) (0.3 - 3.7 %) 12.7 H Baso % (Auto) (0.0 - 2.0 %) 0.8 Neut # (Auto) (2.0 - 7.6 x10 3/uL) 6.81 Lymph # (Auto) (1.0 - 3.8 x10 3/uL) 1.43 Starke # (Auto) (0.1 - 0.8 x10 3/uL) 0.98 H Eos # (Auto) (0.0 - 0.2 x10 3/uL) 1.38 H Baso # (Auto) (0.0 - 0.2 x10 3/uL) 0.09 Abs Immat Gran (auto) (0.00 - 0.03 x10 3/uL) 0.15 H Add Manual Diff NO Immature Gran % (0.0 - 2.0 %) 1.4 Nucleated RBC % (0 - 0 %) 0.0 Nucleated RBCs # (Man) (0.0 - 0.1 x10 3/uL) 0.00 Laboratory Tests 07/06 0458 Chemistry Magnesium (1.80 - 2.40 mg/dL) 1.75 L Results: labs reviewed, vital signs reviewed, vital signs stable Diagnosis, Assessment PlanConsultants: cardiology, cardiovascular surgery, nephrology Free Text DxA P NotesFree Text DxA P Notes:Mr. Arce is a pleasant 81 y/o M w/ PMHx: HTN, HLD presented to [facility] on 06/28/22 for chest pain and sob [...] and diffuse 50-60% dRCA. He transferred to [facility] for CABG. - CAD/NSTEMI. Per CTS. s/p LHC: multivessel disease. Carotid u/s -no stenosis CT chest small bilateral fluid effusion and atelectasis. On statins, BB, ASA. Echo: LVEF 30-34% Plans for CABG- timing per CTS - Systolic HF with ischemic CMP strict I/Os, daily weights, fluid restriction, low NA diet on IV lasix and bb no charly/arb/aldactone due to CLAUDETTE monitor - CLAUDETTE. Per nephro. likly from obstructive uropathy. s/p waters cath. Renal ultrasound showed severe thickening of the bladder, cholelitiasis. - HTN. Bp controlled. Cont - HLD. On statins. - Anemia. Hb 9.5 - UTI. Per IM. Discussed plan of care w/pt. 07/05/22:-CAD/NSTEMI-Echocardiogram showed LVEF 30 to 34%, mild MR, trivial TR-PLAN FOR ACB-ESRD - HD 07/06/22:-STABLE-ACB PLANNED at 0809 RPT #:[id number] OF REPORTPRProgress [id number]:52:[id number] Available for patient [id number]:09:40 [facility] 2022-07-05 14:48:00 [id number]:48:00 [facility] ([facility])Clinical NoteREPORT#:[id number] REPORT STATUS: SignedDATE:07/05/22 TIME: 1448 PATIENT: SHERRI ARCE UNIT #: [id number]#: [id number] [address] AGE: 81 SEX: M ATTEND: Radha Ward [facility] AUTHOR: Rosalind Toribio PREMIUM CARD CANCELLATION CLERK * ALL edits or amendments must be made on the electronic/computer document * Clinical NoteNote:STS Adult Cardiac Surgery Isolated CAB Risk of Mortality: 8.282% Renal Failure: NAPermanent Stroke: 1.769%Prolonged Ventilation: 22.463%DSW Infection: 0.290%Reoperation: 3.281%Morbidity or Mortality: 29.115%Short Length of Stay: 12.095%Long Length of Stay: 17.210% at 1653 at 0835 RPT #:[id number] OF REPORTCLClinical [id number]:48:[id number] Available for patient [id number]:54:10 [facility] 2022-07-05 12:44:00 [id number]:44:00 [facility] ([facility])Cardiothoracic Surgery ProgREPORT#:[id number] REPORT STATUS: SignedDATE:07/05/22 TIME: 1244 PATIENT: SHERRI ARCE UNIT #: [id number]#: [id number] [address] [birth year] AGE: 81 SEX: M ATTEND: Radha Ward [facility] AUTHOR: Rosalind Toribio PREMIUM CARD CANCELLATION CLERK * ALL edits or amendments must be made on the electronic/computer document * SubjectiveChief complaint:Chest PainPre CABG eval Review of SystemsConstitutional:Denies: chills, fever, malaise. Allergy/Immun:Denies: allergic reaction. Respiratory:Denies: SOB. Cardiovascular:Denies: chest pain, palpitations. GI:Denies: abdominal pain, nausea, vomiting. Heme:Denies: bleeding. Neuro:Denies: dizziness, headache, vision change. All systems rev neg: except as marked Objective GeneralVS/I OLast Documented: Result Date Time Pulse Ox 96 [...] scale Measurement Method PATIENT WEIGHT: Weight (lb): 184Weight (oz): 15.49Weight (kg): 83.900 Physical ExamGeneral appearance: alert, oriented, mental status normal, no respiratory distressHEENT: anicteric, mucosal membranes moistNeck: supple/no meningismusCardiovascular: normal heart sounds, regular rate rhythmRespiratory: aerating well, symmetric expansion, no distressAbdomen: soft, non-tender, no distentionExtremities: moves allNeuro/GIFT OFFICER: alert, oriented X 3, normal speech, no motor deficitsPsychiatry: normal affect, normal mood Current MedicationsMedications:Active Meds + DC'd Last 24 HrsFurosemide (LASIX 20MG INJ) 20 MG BID 9A 5P IV Magnesium Sulfate (MAGNESIUM SULFATE 4GM/SWFI 100ML) 100 ML ONCE ONE IV (DC) Atorvastatin Calcium (LIPITOR) 20 MG BEDTIME PO Ceftriaxone Sodium (ROCEPHIN 1000MG VIAL) 1,000 MG Q24H IV Sodium Chloride (SODIUM CHLORIDE) 10 MLHeparin Sodium (HEPARIN 5000 UNITS/ML) 5,000 UNIT Q8HR SUBQ Albumin Human (ALBUMINAR-25%) 12.5 GM ASDIR PRN IV Heparin Sodium (Porcine) (HEPARIN SODIUM) 3,000 UNIT ASDIR PRN DIALYSIS Lidocaine HCl (LIDOCAINE HCL/PF) 0.5 ML ASDIR PRN I-DERMAL (CKD) Mannitol (Mannitol 20%) 12.5 GM ASDIR PRN IV Sodium Chloride (SODIUM CHLORIDE 0.9%) 2,000 ML ASDIR PRN IV Sodium Chloride (SODIUM CHLORIDE) 5 ML ASDIR PRN IV Sodium Chloride (SODIUM CHLORIDE) 10 ML ASDIR PRN IV Sodium Chloride (SODIUM CHLORIDE 0.9%) 250 ML ASDIR PRN IV Aspirin (ASPIRIN) 81 MG DAILY PO Metoprolol Tartrate (LOPRESSOR) 12.5 MG BID PO Mupirocin (BACTROBAN 2% 22 GM OINTMENT) 1 APPLIC BID NASAL Tamsulosin HCl (Flomax 0.4 mg) 0.4 MG BEDTIME PO Docusate Sodium (COLACE) 100 MG BID PRN PRN PO Labetalol HCl (LABETALOL HCL) 10 MG Q6H PRN PRN IV Ondansetron HCl (ZOFRAN) 4 MG Q4H PRN PRN IV ResultsFindings/Data:Laboratory Tests 07/05 07/05 0445 0445 Chemistry Sodium [...] (Auto) (14.0 - 32.0 %) 12.0 L Starke % (Auto) (4.8 - 9.0 %) 10.9 H Eos % (Auto) (0.3 - 3.7 %) 13.1 H Baso % (Auto) (0.0 - 2.0 %) 0.6 Neut # (Auto) (2.0 - 7.6 x10 3/uL) 6.89 Lymph # (Auto) (1.0 - 3.8 x10 3/uL) 1.34 Starke # (Auto) (0.1 - 0.8 x10 3/uL) 1.22 H Eos # (Auto) (0.0 - 0.2 x10 3/uL) 1.46 H Baso # (Auto) (0.0 - 0.2 x10 3/uL) 0.07 Abs Immat Gran (auto) (0.00 - 0.03 x10 3/uL) 0.20 H Add Manual Diff NO Immature Gran % (0.0 - 2.0 %) 1.8 Nucleated RBC % (0 - 0 %) 0.0 Nucleated RBCs # (Man) (0.0 - 0.1 x10 3/uL) 0.00 Diagnosis, Assessment PlanHospital course to date:This is a 81-year-old gentleman who presented to an outside hospital with complaints of chest pains while walking at his home on Thursday. He denies any previous history of coronary artery disease or other [place]. He was seen and evaluated at [facility]. He was found to have a urinary tract infection with urinary retention and acute kidney. He was started on dialysis via a left femoral temporary catheter. He underwent dialysis on Thursday, Thursday. Renal has been consultedDuring his work-up at outside hospital he underwent Left heart catheterization showing severe Left Main 70%. LAD: Proximal diffuse 80% stenosis and then diffuse 60% in the midsegment and on the distal segment, there is focal 70% stenosis. Diagonal branches with luminal irregularities. Left circumflex, codominant circulation with proximal 80%, mid 80 to 90% and then in the OM, there is proximal 60%, distal left circumflex has a 70% stenosis. RCA large and dominant with proximal 40% stenosis, mid 60% stenosis and then diffuse 50% stenosis all the way distally and the PLV and the PDA with luminal irregularities. CV surgery consulted for evaluation for coronary bypass graft. CAROTIDS- No carotid stenosis CT chest complete IMPRESSION: Small bilateral pleural effusions with bibasilar atelectasis. Echo:1. Left ventricle: The cavity size is at the upper limits of normal. Wall thickness is mildly increased. Systolic function is severely reduced. The estimated ejection fraction is 30-34%. Moderate hypokinesis of the entire myocardium. Doppler parameters are consistent with abnormal left ventricular relaxation (grade 1 diastolic dysfunction).2. Pericardium, extracardiac: A small pericardial effusion is identified along the left ventricular free wall, along the right ventricular free wall, and along the right atrial free wall. Assessment/Plan1) CAD Mutlivessel Will obtain echo,carotids. 2) CLAUDETTE Started dialysis on Creatine 7.3 Renal consulted. 3) BPH- Urinary retention. Waters in place Workup for CABG underway. Will get functional assessment with PT. PFT pending Carotid dopplers- No disease Echo PendingDialyiss per Renal. Baseline Cr unknown. 07/04 07/04 Doing well today, alert, up in the chair. Denies chest painEchocardiogram showed LVEF 30 to 34%, mild MR, trivial TRCT chest images reviewedEncourage I-S and mobilizationCreatinine 5.5 from 7.3, good urine output. Renal US showed bilateral severe hydronephrosis. Plan for HD today and tomorrow Will tentatively schedule patient for surgery on Thursday.Patient seen and plan reviewed with Dr Schwarz 07/05 Remains in a stable condition, denies chest pain BUN 53, creatinine 5.4. Plan for hemodialysis today and tomorrow for clearanceHe is also on Lasix 20 mg IV twice daily, urine output 1.1 L overnightWe will calculate risk of surgery with STS scoreEncourage I-S and mobilizationWill tentatively schedule patient for surgery on Thursday.Pt seen and plan reviewed with Dr Schwarz Consultants: cardiology, cardiovascular surgery, nephrology at 1248 at 0835 RPT #:[id number] OF REPORTPRProgress [id number]:44:[id number] Available for patient [id number]:48:53 [facility] 2022-07-05 09:53:00 [id number]:53:00 [facility] ([facility])Cardiology Progress NoteREPORT#:[id number] REPORT STATUS: SignedDATE:07/05/22 TIME: 952 PATIENT: SHERRI ARCE UNIT #: [id number]#: [id number] [address] [birth year] AGE: 81 SEX: M ATTEND: Radha Ward [facility] AUTHOR: Kasi Katz MD * ALL edits or amendments must be made on the electronic/computer document * SubjectiveChief complaint:doing ok Objective GeneralVS/I O:24 hour I O ending at 0700: 07/05 [...] O2 Flow FiO2 Mean Ox Delivery Rate 07/05 0850 [...] 113/62 81 94 PATIENT WEIGHT: Weight (lb): 184Weight (oz): 15.49Weight (kg): 83.900 Medications:Active Meds + DC'd Last 24 HrsPotassium Chloride (POTASSIUM CHLORIDE 20MEQ TAB.ER) 40 MEQ ONCE ONE PO (DC) Furosemide (LASIX 20MG INJ) 20 MG BID 9A 5P IV Magnesium Sulfate (MAGNESIUM SULFATE 4GM/SWFI 100ML) 100 ML ONCE ONE IV (DC) Atorvastatin Calcium (LIPITOR) 20 MG BEDTIME PO Ceftriaxone Sodium (ROCEPHIN 1000MG VIAL) 1,000 MG Q24H IV Sodium Chloride (SODIUM CHLORIDE) 10 MLHeparin Sodium (HEPARIN 5000 UNITS/ML) 5,000 UNIT Q8HR SUBQ Albumin Human (ALBUMINAR-25%) 12.5 GM ASDIR PRN IV Heparin Sodium (Porcine) (HEPARIN SODIUM) 3,000 UNIT ASDIR PRN DIALYSIS Lidocaine HCl (LIDOCAINE HCL/PF) 0.5 ML ASDIR PRN I-DERMAL (CKD) Mannitol (Mannitol 20%) 12.5 GM ASDIR PRN IV Sodium Chloride (SODIUM CHLORIDE 0.9%) 2,000 ML ASDIR PRN IV Sodium Chloride (SODIUM CHLORIDE) 5 ML ASDIR PRN IV Sodium Chloride (SODIUM CHLORIDE) 10 ML ASDIR PRN IV Sodium Chloride (SODIUM CHLORIDE 0.9%) 250 ML ASDIR PRN IV Aspirin (ASPIRIN) 81 MG DAILY PO Metoprolol Tartrate (LOPRESSOR) 12.5 MG BID PO Mupirocin (BACTROBAN 2% 22 GM OINTMENT) 1 APPLIC BID NASAL Tamsulosin HCl (Flomax 0.4 mg) 0.4 MG BEDTIME PO Docusate Sodium (COLACE) 100 MG BID PRN PRN PO Labetalol HCl (LABETALOL HCL) 10 MG Q6H PRN PRN IV Ondansetron HCl (ZOFRAN) 4 MG Q4H PRN PRN IV Physical ExamGeneral appearance: alert, awake, orientedHead/Eyes: atraumatic, clear corneaENT: moist mucosal membranesNeck: full range of motion, no JVDCardiovascular: CV assessment: regular rate and rhythm, no murmurRespiratory: decreased breath sounds, no distressAbdomen: soft, non-tender, normal bowel sounds, no distention, no guardingGenitourinary: urinary catheter, urineUpper extremity: UE assessment: normal temperature, no edemaLower extremity: LE assessment: normal temperature, no edemaNeuro/GIFT OFFICER: alert, oriented X 3, normal speechPsychiatry: normal affect ResultsFindings/Data:Laboratory Tests 07/05 07/05 0445 0445 Chemistry Sodium [...] (Auto) (14.0 - 32.0 %) 12.0 L Starke % (Auto) (4.8 - 9.0 %) 10.9 H Eos % (Auto) (0.3 - 3.7 %) 13.1 H Baso % (Auto) (0.0 - 2.0 %) 0.6 Neut # (Auto) (2.0 - 7.6 x10 3/uL) 6.89 Lymph # (Auto) (1.0 - 3.8 x10 3/uL) 1.34 Starke # (Auto) (0.1 - 0.8 x10 3/uL) 1.22 H Eos # (Auto) (0.0 - 0.2 x10 3/uL) 1.46 H Baso # (Auto) (0.0 - 0.2 x10 3/uL) 0.07 Abs Immat Gran (auto) (0.00 - 0.03 x10 3/uL) 0.20 H Add Manual Diff NO Immature Gran % (0.0 - 2.0 %) 1.8 Nucleated RBC % (0 - 0 %) 0.0 Nucleated RBCs # (Man) (0.0 - 0.1 x10 3/uL) 0.00 Laboratory Tests 07/05 0445 Chemistry Magnesium (1.80 - 2.40 mg/dL) 2.07 Results: labs reviewed, vital signs reviewed, vital signs stable Diagnosis, Assessment PlanConsultants: cardiology, cardiovascular surgery, nephrology Free Text DxA P NotesFree Text DxA P Notes:Mr. Arce is a pleasant 81 y/o M w/ PMHx: HTN, HLD presented to [facility] on 06/28/22 for chest pain and sob [...] and diffuse 50-60% dRCA. He transferred to [facility] for CABG. - CAD/NSTEMI. Per CTS. s/p LHC: multivessel disease. Carotid u/s -no stenosis CT chest small bilateral fluid effusion and atelectasis. On statins, BB, ASA. Echo: LVEF 30-34% Plans for CABG- timing per CTS - Systolic HF with ischemic CMP strict I/Os, daily weights, fluid restriction, low NA diet on IV lasix and bb no charly/arb/aldactone due to CLAUDETTE monitor - CLAUDETTE. Per nephro. likly from obstructive uropathy. s/p waters cath. Renal ultrasound showed severe thickening of the bladder, cholelitiasis. - HTN. Bp controlled. Cont - HLD. On statins. - Anemia. Hb 9.5 - UTI. Per IM. Discussed plan of care w/pt. 07/05/22:-CAD/NSTEMI-Echocardiogram showed LVEF 30 to 34%, mild MR, trivial TR-PLAN FOR ACB-ESRD - HD at 0936 RPT #:[id number] OF REPORTPRProgress [id number]:53:[id number] Available for patient [id number]:37:20 [facility] 2022-07-05 09:47:00 [id number]:47:00 [facility] ([facility])Nephrology Progress NoteREPORT#:[id number] REPORT STATUS: SignedDATE:07/05/22 TIME: 09 PATIENT: SHERRI ARCE UNIT #: [id number]#: [id number] [address] [birth year] AGE: 81 SEX: M ATTEND: Radha Ward [facility] AUTHOR: Jackie Wan MD * ALL edits or amendments must be made on the electronic/computer document * SubjectiveChief complaint:Has no chest pain or shortness of breath Review of SystemsConstitutional:Reports: generalized weakness. All systems rev neg: except as marked Objective GeneralVS/I O:Vital Signs: Date Time Temp Pulse Resp B/P B/P Pulse O2 O2 Flow FiO2 Mean Ox Delivery Rate 07/05 0850 [...] scale Measurement Method PATIENT WEIGHT: Weight (lb): 184Weight (oz): 15.49Weight (kg): 83.900 MedicationsActive Meds + DC'd Last 24 HrsFurosemide (LASIX 20MG INJ) 20 MG BID 9A 5P IV (DC) Atorvastatin Calcium (LIPITOR) 20 MG BEDTIME PO Ceftriaxone Sodium (ROCEPHIN 1000MG VIAL) 1,000 MG Q24H IV Sodium Chloride (SODIUM CHLORIDE) 10 MLHeparin Sodium (HEPARIN 5000 UNITS/ML) 5,000 UNIT Q8HR SUBQ Albumin Human (ALBUMINAR-25%) 12.5 GM ASDIR PRN IV Heparin Sodium (Porcine) (HEPARIN SODIUM) 3,000 UNIT ASDIR PRN DIALYSIS Lidocaine HCl (LIDOCAINE HCL/PF) 0.5 ML ASDIR PRN I-DERMAL (CKD) Mannitol (Mannitol 20%) 12.5 GM ASDIR PRN IV Sodium Chloride (SODIUM CHLORIDE 0.9%) 2,000 ML ASDIR PRN IV Sodium Chloride (SODIUM CHLORIDE) 5 ML ASDIR PRN IV Sodium Chloride (SODIUM CHLORIDE) 10 ML ASDIR PRN IV Sodium Chloride (SODIUM CHLORIDE 0.9%) 250 ML ASDIR PRN IV Aspirin (ASPIRIN) 81 MG DAILY [...] MG Q4H PRN PRN IV Dietitian nutrition assessmentThe data set between the solid lines has been imported from the dietitian's assessment. BMI Calculated: 25.1Nutrition related diagnosis: Nutrition diagnosis details: Nutrition problem: Nutrition etiology: Nutrition signs and symptoms: Nutrition prescription: Dietitian name: Assessment completed: Physical ExamGeneral appearance: alert, awake, orientedHead/eyes: atraumatic, normocephalicENT: moist mucous membranes, normal noseNeck: non-tender, no JVDCardiovascular: regular rate and rhythm, no murmurRespiratory: normal breath sounds, no distressAbdomen: no guarding, no reboundExtremities: non-tender, no edemaSkin: dry, no rash ResultsFindings/Data:Laboratory Tests 07/05 07/05 0445 0445 Chemistry Sodium [...] (Auto) (14.0 - 32.0 %) 12.0 L Starke % (Auto) (4.8 - 9.0 %) 10.9 H Eos % (Auto) (0.3 - 3.7 %) 13.1 H Baso % (Auto) (0.0 - 2.0 %) 0.6 Neut # (Auto) (2.0 - 7.6 x10 3/uL) 6.89 Lymph # (Auto) (1.0 - 3.8 x10 3/uL) 1.34 Starke # (Auto) (0.1 - 0.8 x10 3/uL) 1.22 H Eos # (Auto) (0.0 - 0.2 x10 3/uL) 1.46 H Baso # (Auto) (0.0 - 0.2 x10 3/uL) 0.07 Abs Immat Gran (auto) (0.00 - 0.03 x10 3/uL) 0.20 H Add Manual Diff NO Immature Gran % (0.0 - 2.0 %) 1.8 Nucleated RBC % (0 - 0 %) 0.0 Nucleated RBCs # (Man) (0.0 - 0.1 x10 3/uL) 0.00 Diagnosis, Assessment PlanFree Text A P:Assessment:1-CLAUDETTE likely from urinary retention. 2- non-STEMI: multivessel disease w main left. 3- BPH4-severe bilateral veiunyplxqyzgt4-qqwcuoreexlt7-zwumbmyiinqwfh Plan:-unknown Scr baseline. - He underwent LHC on 07/03. Had HD without UF on 07/04 for clearance-second treatment today-CTS requesting third treatment on Thursday instead of Thursday- Ultrasound showed severe bilateral hydronephrosis-Excellent urine output volume 2900 mL. Suspect renal recovery. - continue Waters catheter and strict intake and output- CT surgery eval for CABG. plan for CABG on07/07- okay for cardiac diet. Discussed with patient and cardiothoracic surgery team Consultants: cardiology, cardiovascular surgery, nephrology at 0634 RPT #:[id number] OF REPORTPRProgress [id number]:47:[id number] Available for patient [id number]:34:33 [facility] 2022-07-05 09:13:00 [id number]:13:00 [facility] ([facility])Hospitalist Progress NoteREPORT#:[id number] REPORT STATUS: SignedDATE:07/05/22 TIME: 09 PATIENT: SHERRI ARCE UNIT #: [id number]#: [id number] [address] [birth year] AGE: 81 SEX: M ATTEND: Radha Ward [facility] AUTHOR: Radha Ward MD * ALL edits or amendments must be made on the electronic/computer document * SubjectiveChief complaint:No complaint. Having dialysis now. Waiting for CABG on 07/07/2022HPI:81 y/o man with PMHx of HTN, Dyslipidemia that [facility] with chest pain and found to have a NSTEMI and also acute renal failure. Underwent cardiac cath yesterday and found to have severe CAD including left main disease. Transfer here for CABG evaluation. He also underwent HD Thursday and Thursday of this week. HD catheter was place at [facility]. Currently not having any chest pain. Had chest pain with SOB when he presentted to the previous hospital. Objective GeneralVS/I O:Vital Signs: Date Time Temp Pulse Resp B/P B/P Pulse O2 O2 Flow FiO2 Mean Ox Delivery Rate 07/05 1600 [...] scale Measurement Method PATIENT WEIGHT: Weight (lb): 184Weight (oz): 15.49Weight (kg): 83.900 Medications:Active Meds + DC'd Last 24 HrsFurosemide (LASIX 20MG INJ) 20 MG BID 9A 5P IV (DC) Atorvastatin Calcium (LIPITOR) 20 MG BEDTIME PO Ceftriaxone Sodium (ROCEPHIN 1000MG VIAL) 1,000 MG Q24H IV Sodium Chloride (SODIUM CHLORIDE) 10 MLHeparin Sodium (HEPARIN 5000 UNITS/ML) 5,000 UNIT Q8HR SUBQ Albumin Human (ALBUMINAR-25%) 12.5 GM ASDIR PRN IV Heparin Sodium (Porcine) (HEPARIN SODIUM) 3,000 UNIT ASDIR PRN DIALYSIS Lidocaine HCl (LIDOCAINE HCL/PF) 0.5 ML ASDIR PRN I-DERMAL (CKD) Mannitol (Mannitol 20%) 12.5 GM ASDIR PRN IV Sodium Chloride (SODIUM CHLORIDE 0.9%) 2,000 ML ASDIR PRN IV Sodium Chloride (SODIUM CHLORIDE) 5 ML ASDIR PRN IV Sodium Chloride (SODIUM CHLORIDE) 10 ML ASDIR PRN IV Sodium Chloride (SODIUM CHLORIDE 0.9%) 250 ML ASDIR PRN IV Aspirin (ASPIRIN) 81 MG DAILY PO Metoprolol Tartrate (LOPRESSOR) 12.5 MG BID PO Mupirocin (BACTROBAN 2% 22 GM OINTMENT) 1 APPLIC BID NASAL Tamsulosin HCl (Flomax 0.4 mg) 0.4 MG BEDTIME PO Docusate Sodium (COLACE) 100 MG BID PRN PRN PO Labetalol HCl (LABETALOL HCL) 10 MG Q6H PRN PRN IV Ondansetron HCl (ZOFRAN) 4 MG Q4H PRN PRN IV Physical ExamGeneral appearance: alert, awake, orientedHead/Eyes: atraumatic, EOMI, normal conjunctiva/sclera, normocephalic, PERRLAENT: moist mucosal membranesNeck: full range of motion, no bruit/NL carotids, no JVDCardiovascular: normal heart sounds, regular rate rhythmRespiratory: aerating well, clear to auscultation, symmetric expansion, no distressAbdomen: non-tender, normal bowel sounds, soft, no distention, no guarding, no reboundExtremities: moves all, no cyanosis, no edemaMusculoskeletal: normal inspectionNeuro/GIFT OFFICER: alert, oriented X 3, normal speech, no motor deficits, no sensory deficitsSkin: intact, normal color, no rashPsychiatry: normal affect ResultsFindings/Data:Laboratory Tests 07/05 0445 Chemistry Sodium (134 - [...] (1.80 - 2.40 mg/dL) 2.07 Laboratory Tests 07/055 Hematology WBC (4.5 - 11.0 x10 3/uL) [...] (Auto) (14.0 - 32.0 %) 12.0 L Starke % (Auto) (4.8 - 9.0 %) 10.9 H Eos % (Auto) (0.3 - 3.7 %) 13.1 H Baso % (Auto) (0.0 - 2.0 %) 0.6 Neut # (Auto) (2.0 - 7.6 x10 3/uL) 6.89 Lymph # (Auto) (1.0 - 3.8 x10 3/uL) 1.34 Starke # (Auto) (0.1 - 0.8 x10 3/uL) 1.22 H Eos # (Auto) (0.0 - 0.2 x10 3/uL) 1.46 H Baso # (Auto) (0.0 - 0.2 x10 3/uL) 0.07 Abs Immat Gran (auto) (0.00 - 0.03 x10 3/uL) 0.20 H Add Manual Diff NO Immature Gran % (0.0 - 2.0 %) 1.8 Nucleated RBC % (0 - 0 %) 0.0 Nucleated RBCs # (Man) (0.0 - 0.1 x10 3/uL) 0.00 Diagnosis, Assessment PlanConsultants: cardiology, cardiovascular surgery, nephrology Free Text DxA P NotesFree text DxA P notes:Assessment and plans:CAD (coronary artery disease) patient presented with NSTEMI and found to hve severe CAD. Cardiac cath shows: Left Main - Distal 70% LAD - Proximal 80% with another 60% and 70% lessions Cir - Proximal 80%,mid 80-90%, Distal 70% and OM 60% RCA - large dominant with proximal 40%, Mid 60%. Patient on ASA, BB and Statin Cardiology and CV surgeon consulted echo: ef 30-34%, mod hypokinesis of entire myocardium, grade 1 diastolic dysfunction Carotid Dopplers negative Physical therapy evaluate and treat PFTs pending 07/07 Plan for CABG on Thursday Acute systolic heart failure Echocardiac with estimated LVEF of 30 to 34% with grade 1 diastolic dysfunction-Lasix 20 mg twice daily 07/05-Strict I's and O's, daily weights-Start GDMT prior to discharge CLAUDETTE (acute kidney injury) No prior Hx of renal disease. hx of BPH and treated with Fosamax w/o improvement nd continue to have difficulty urinating. On admission was found to be on acute renal filaure and had received HD twice prior to arrival here (thursday and thursday). Creatinine this am was 7.4, BUN 68 * Probably due to obstructive uropathy* waters already in place* Nephrology consuled for HD On daily hemodialysis as per nephrology HTN (hypertension) patient on metoprolol 12.5 mg BID, will adjust as needed On labetalol/hydralazine as needed Dyslipidemia on Lipitor 20mg po daliy. BPH (benign prostatic hyperplasia) Started on Flomax at the previous hospital, will continue with it. Waters catheter in place, continue Waters catheter as per nephrology 07/05 Goiter Hx of Goiter and surgical resection. TSH 3.33, within normal limits. Patient is not on Thyroid medication. anemia of chronic kidney disease Hemoglobin 9.5, monitor Hypokalemia resolved UTI continue Rocephin for empiric treatment pending results of urine culture No growth for 48 hours DVT prophylaxis: Heparin 5000 units every 8 hoursDiet: CardiacCODE STATUS: Full code Disposition: On daily hemodialysis, Waters catheter in place, plan for CABG on Friday 07/07. Continue CCU care. Quality: Gen Med Crit Care VTE ProphylaxisVTE prophylaxis initiated: yes Current MedicationsCurrent medication review:I attest that the foregoing medication list in the medical record is true, accurate, and complete to the best of my knowledge. Advanced Care Plan 65 or OlderDiscussed with: patientDiscussion included: living will (none), power of school commissioner (none), code status (full code) at 1721 RPT #:[id number] OF REPORTPRProgress [id number]:13:[id number] Available for patient [id number]:21:43 [facility] 2022-07-04 15:27:00 [id number]:27:00 [facility] ([facility])Hospitalist Progress NoteREPORT#:[id number] REPORT STATUS: SignedDATE:07/04/22 TIME: 1527 PATIENT: SHERRI ARCE UNIT #: [id number]#: [id number] [address] [birth year] AGE: 81 SEX: M ATTEND: Los Crawford DOADM AUTHOR: Los Crawford DO * ALL edits or amendments must be made on the electronic/computer document * SubjectiveChief complaint:Patient seen and examined during dialysisNo new complaintsHPI:81 y/o man with PMHx of HTN, Dyslipidemia that presented [facility] with chest pain and found to have a NSTEMI and also acute renal failure. Underwent cardiac cath yesterday and found to have severe CAD including left main disease. Transfer here for CABG evaluation. He also underwent HD Thursday and Thursday of this week. HD catheter was place at [facility]. Currently not having any chest pain. Had chest pain with SOB when he presentted to the previous hospital. Objective GeneralVS/I O:Vital Signs: Date Time Temp Pulse Resp B/P B/P Pulse O2 O2 Flow FiO2 Mean Ox Delivery Rate 07/04 0931 [...] Urine 1100 1800 PATIENT WEIGHT: Weight (lb): 190Weight (oz): 11.2Weight (kg): 86.183 Physical ExamGeneral appearance: alert, awake, orientedHead/Eyes: atraumatic, EOMI, normal conjunctiva/sclera, normocephalic, PERRLAENT: moist mucosal membranesNeck: full range of motion, no bruit/NL carotids, no JVDCardiovascular: normal heart sounds, regular rate rhythmRespiratory: aerating well, clear to auscultation, symmetric expansion, no distressAbdomen: non-tender, normal bowel sounds, soft, no distention, no guarding, no reboundExtremities: moves all, no cyanosis, no edemaMusculoskeletal: normal inspectionNeuro/GIFT OFFICER: alert, oriented X 3, normal speech, no motor deficits, no sensory deficitsSkin: intact, normal color, no rash Diagnosis, Assessment PlanConsultants: cardiology, cardiovascular surgery, nephrology Free Text DxA P NotesFree text DxA P notes: 1. CAD (coronary artery disease) patient presented with NSTEMI and found to hve severe CAD. Cardiac cath shows: Left Main - Distal 70% LAD - Proximal 80% with another 60% and 70% lessions Cir - Proximal 80%,mid 80-90%, Distal 70% and OM 60% RCA - large dominant with proximal 40%, Mid 60%. Patient on ASA, BB and Statin Cardiology [...] of renal disease. hx of BPH and treated with Fosamax w/o improvement nd continue to have difficulty urinating. On admission was found to be on acute renal filaure and had received HD twice prior to arrival here (thursday and thursday). Creatinine this am was 7.4, BUN 68 * Probably due to obstructive uropathy* waters already in place* Nephrology consuled for HD 5. BPH (benign prostatic hyperplasia) Started on Flomax at the previous hospital, will continue with it. 6. Goiter Hx of Goiter and surgical resection. TSH 3.33, within normal limits. Patient is not on Thyroid medication. 7. anemia of chronic kidney disease Hemoglobin 9.5, monitor 8. Hypokalemia resolved 9. UTI continue Rocephin for empiric treatment pending results of urine culture 10. Acute systolic heart failure Echocardiac with estimated LVEF of 30 to 34% with grade 1 diastolic dysfunction-Lasix 20 mg twice daily-Strict I's and O's, daily weights-Start GDMT prior to discharge DVT prophylaxis: Heparin 5000 units every 8 hoursDiet: CardiacCODE STATUS: Full code Disposition: Plan for CABG on Friday 07/07 Quality: Gen Med Crit Care VTE ProphylaxisVTE prophylaxis initiated: yes Current MedicationsCurrent medication review:I attest that the foregoing medication list in the medical record is true, accurate, and complete to the best of my knowledge. Advanced Care Plan 65 or OlderDiscussed with: patientDiscussion included: living will (none), power of school commissioner (none), code status (full code) at 1531 RPT #:[id number] OF REPORTPRProgress [id number]:27:[id number] Available for patient [id number]:32:05 [facility] 2022-07-04 11:08:00 [id number]:08:00 [facility] ([facility])Nephrology Progress NoteREPORT#:[id number] REPORT STATUS: SignedDATE:07/04/22 TIME: 1108 PATIENT: SHERRI ARCE UNIT #: [id number]#: [id number] [address] [birth year] AGE: 81 SEX: M ATTEND: Los Crawford DOADM AUTHOR: Evelina Plaza MD * ALL edits or amendments must be made on the electronic/computer document * See AddendumSubjectiveChief complaint:Has no chest pain or shortness of breath Objective GeneralVS/I O:Vital Signs: Date Time Temp Pulse Resp B/P B/P Pulse O2 O2 Flow FiO2 Mean Ox Delivery Rate 07/04 0831 96 30 144/72 94 95 07/04 0900 [...] Urine 1100 1800 PATIENT WEIGHT: Weight (lb): 190Weight (oz): 11.2Weight (kg): 86.500 MedicationsActive Meds + DC'd Last 24 HrsMagnesium Sulfate (MAGNESIUM SULFATE 4GM/SWFI 100ML) 100 ML ONCE ONE IV Atorvastatin Calcium (LIPITOR) 20 MG BEDTIME PO Ceftriaxone Sodium (ROCEPHIN 1000MG VIAL) 1,000 MG Q24H IV Sodium Chloride (SODIUM CHLORIDE) 10 MLHeparin Sodium (HEPARIN 5000 UNITS/ML) 5,000 UNIT Q8HR SUBQ Albumin Human (ALBUMINAR-25%) 12.5 GM ASDIR PRN IV Heparin Sodium (Porcine) (HEPARIN SODIUM) 3,000 UNIT ASDIR PRN DIALYSIS Lidocaine HCl (LIDOCAINE HCL/PF) 0.5 ML ASDIR PRN I-DERMAL (CKD) Mannitol (Mannitol 20%) 12.5 GM ASDIR PRN IV Sodium Chloride (SODIUM CHLORIDE 0.9%) 2,000 ML ASDIR PRN IV Sodium Chloride (SODIUM CHLORIDE) 5 ML ASDIR PRN IV Sodium Chloride (SODIUM CHLORIDE) 10 ML ASDIR PRN IV Sodium Chloride (SODIUM CHLORIDE 0.9%) 250 ML ASDIR PRN IV Aspirin (ASPIRIN) 81 MG DAILY PO Metoprolol Tartrate (LOPRESSOR) 12.5 MG BID PO Mupirocin (BACTROBAN 2% 22 GM OINTMENT) 1 APPLIC BID NASAL Tamsulosin HCl (Flomax 0.4 mg) 0.4 MG BEDTIME PO Docusate Sodium (COLACE) 100 MG BID PRN PRN PO Labetalol HCl (LABETALOL HCL) 10 MG Q6H PRN PRN IV Ondansetron HCl (ZOFRAN) 4 MG Q4H PRN PRN IV Physical ExamGeneral appearance: alert, awake, orientedHead/eyes: atraumatic, normocephalicENT: moist mucous membranes, normal noseNeck: non-tender, no JVDCardiovascular: regular rate and rhythm, no murmurRespiratory: normal breath sounds, no distressAbdomen: no guarding, no reboundExtremities: non-tender, no edemaSkin: dry, no rash ResultsFindings/Data:Laboratory Tests 07/04 424 Chemistry Sodium (134 - [...] - 2.40 mg/dL) 1.40 L Laboratory Tests 01/27 0425 Hematology WBC (4.5 - 11.0 x10 [...] (Auto) (14.0 - 32.0 %) 12.1 L Starke % (Auto) (4.8 - 9.0 %) 10.8 H Eos % (Auto) (0.3 - 3.7 %) 12.8 H Baso % (Auto) (0.0 - 2.0 %) 0.7 Neut # (Auto) (2.0 - 7.6 x10 3/uL) 5.98 Lymph # (Auto) (1.0 - 3.8 x10 3/uL) 1.17 Starke # (Auto) (0.1 - 0.8 x10 3/uL) 1.04 H Eos # (Auto) (0.0 - 0.2 x10 3/uL) 1.24 H Baso # (Auto) (0.0 - 0.2 x10 3/uL) 0.07 Abs Immat Gran (auto) (0.00 - 0.03 x10 3/uL) 0.17 H Add Manual Diff NO Immature Gran % (0.0 - 2.0 %) 1.8 Nucleated RBC % (0 - 0 %) 0.0 Nucleated RBCs # (Man) (0.0 - 0.1 x10 3/uL) 0.00 Laboratory Tests 07/03 1223 Serology Hepatitis A IgM Ab (NON REACT. INDEX) NON REACTIVE Hep Bs Antigen (NonReactive INDEX) NON REACTIVE Hep B Core IgM Ab (NON REACT. INDEX) NON REACTIVE Hepatitis C Antibody (NON REACT. INDEX) NON REACTIVE Radiology data:Recent Impressions:ULTRASOUND - DUP VEIN WOJCIECH 07/03 1207 Report [...] and 0.19 mm in the distal calf. Impression By: [email or web address] Yasmin Brown M.D.ULTRASOUND - US RETROPERITONEAL COM 07/03 1207 Report Impression - Status: SIGNED Entered: 07/03/2022 1552 IMPRESSION: 1. Bilateral severe hydronephrosis. 2. Severe thickening of the urinary bladder wall with a Waters catheter in place. 3. 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 4. Cholelithiasis Impression By: [email or web address] Yasmin Mata M.D.ULTRASOUND - DUP EXTRACRANIAL WOJCIECH 07/03 120 Report Impression - Status: SIGNED Entered: 07/03/2022 1256 IMPRESSION: No flow-limiting proximal internal carotid arterial [...] Total occlusion is no detectable patent lumen. Impression By: [email or web address] Yasmin Berry M.D.CAT SCAN - CT CHEST W/O CONTRAST 07/03 1227 Report Impression - Status: SIGNED Entered: 07/03/2022 1313 IMPRESSION: Small bilateral pleural effusions with bibasilar atelectasis. Impression By: Kourtney Woodruff Rajeev, M.D. Diagnosis, Assessment PlanFree Text A P:Assessment:1-CLAUDETTE likely from urinary retention. 2- non-STEMI: multivessel disease w main left. 3- BPH4-severe bilateral whsaguwftfhbrh8-qiinyguepcab0-zkfifrxnfqxcxx Plan:-unknown Scr baseline. - He underwent LHC on 07/03. Had HD without UF on 07/04 for clearance- Ultrasound showed severe bilateral hydronephrosis-Excellent urine output volume 2900 mL. Suspect renal recovery. -Withdrawn HD for clearance today and tomorrow for more clearance. - continue Waters catheter and strict intake and output- CT surgery eval for CABG. plan for CABG on07/07- okay for cardiac diet. Discussed with patient and cardiothoracic surgeon. Consultants: cardiology, cardiovascular surgery, nephrology at 1112 Addendum 1: 07/04/22 1129 by Evelina Plaza MD Echo with EF 30-34% and grade I diastolic start lasix 20 mg BID. continue strict IO replaced K and Mg. at 1130 RPT #:[id number] OF REPORTPRProgress [id number]:08:[id number] Available for patient [id number]:12:56 [facility] 2022-07-04 09:10:00 [id number]:10:00 [facility] ([facility])Cardiology Progress NoteREPORT#:[id number] REPORT STATUS: SignedDATE:07/04/22 TIME: 909 PATIENT: SHERRI ARCE UNIT #: [id number]#: [id number] [address]: [birth year] AGE: 81 SEX: M ATTEND: Los Crawford DOADM AUTHOR: Jyoti Browning PREMIUM CARD CANCELLATION CLERK * ALL edits or amendments must be made on the electronic/computer document * Jyoti Browning 07/04/22 0910:SubjectiveChief complaint:doing ok Objective GeneralVS/I O:Laboratory Tests 07/04/22 0425:[Embedded Image Not Available] 07/03/22 0623:[Embedded Image Not Available]Current Medications Sig/Earl Start time Last Medication Dose Route Stop Time Status Admin Potassium Chloride 40 MEQ ONCE ONE 07/04 1145 DC PO 07/04 1146 Furosemide 20 MG BID 9A 5P 07/04 1130 AC IV 07/05 1701 Magnesium Sulfate 100 ML ONCE ONE 07/04 0900 AC 07/04 IV 07/04 1259 0958 Atorvastatin Calcium 20 MG BEDTIME 07/03 2100 AC 07/03 PO 08/02 Ceftriaxone Sodium 1,000 MG Q24H 07/03 1600 AC 07/03 Sodium Chloride 10 ML IV 07/08 1559 1615 Heparin Sodium 5,000 UNIT Q8HR 07/03 1400 AC 07/04 SUBQ 08/02 1359 0550 Albumin Human 12.5 GM ASDIR PRN 07/03 1200 AC IV 08/03 1155 Heparin Sodium 3,000 UNIT ASDIR PRN 07/03 1200 AC 07/03 (Porcine) DIALYSIS 08/02 1159 1339 Lidocaine HCl 0.5 ML ASDIR PRN 07/03 1200 CKD I-DERMAL 08/03 1155 Mannitol 12.5 GM ASDIR PRN 07/03 1200 AC IV 08/03 1155 Sodium Chloride 2,000 ML ASDIR PRN 07/03 1200 AC 07/03 IV 08/03 1155 1338 Sodium Chloride 5 ML ASDIR PRN 07/03 1200 AC IV 08/02 1159 Sodium Chloride 10 ML ASDIR PRN 07/03 1200 AC 07/03 IV 08/02 1159 1340 Sodium Chloride 250 ML ASDIR PRN 07/03 1200 AC IV 08/02 1159 Aspirin 81 MG DAILY 07/03 09 AC 07/04 PO 08/02 0859 0957 Metoprolol Tartrate 12.5 MG BID 07/03 09 AC 07/04 PO 08/02 0859 0957 Mupirocin 1 APPLIC BID 07/03 09 AC 07/04 NASAL 07/07 210 0958 Tamsulosin HCl 0.4 MG BEDTIME 07/02 2144 AC 07/03 PO 08/01 Docusate Sodium 100 MG BID PRN PRN 07/02 2114 AC PO 08/01 2113 Labetalol HCl 10 MG [...] O2 Flow FiO2 Mean Ox Delivery Rate 07/04 0931 [...] 76 26 113/62 81 92 07/03 2000 36.4 80 29 147/69 99 94 07/03 [...] 143/76 103 97 PATIENT WEIGHT: Weight (lb): 190Weight (oz): 11.2Weight (kg): 86.500 Physical ExamGeneral appearance: alert, awake, oriented, no acute distressHead/Eyes: atraumatic, clear corneaENT: moist mucosal membranesNeck: full range of motion, no JVDCardiovascular: CV assessment: regular rate and rhythm, no murmurRespiratory: decreased breath sounds, no distressAbdomen: soft, non-tender, normal bowel sounds, no distention, no guardingGenitourinary: urinary catheter, urineUpper extremity: UE assessment: normal temperature, no edemaLower extremity: LE assessment: normal temperature, no edemaNeuro/GIFT OFFICER: alert, oriented X 3, normal speechPsychiatry: normal affect Diagnosis, Assessment PlanProblem List/A P: 1. HTN (hypertension) 2. CLAUDETTE (acute kidney injury) 3. CAD (coronary artery disease) 4. Dyslipidemia 5. BPH (benign prostatic hyperplasia) Free Text DxA P NotesFree Text DxA P Notes:Mr. Arce is a pleasant 81 y/o M w/ PMHx: HTN, HLD presented to [facility] on 06/28/22 for chest pain and sob [...] and diffuse 50-60% dRCA. He transferred to [facility] for CABG. - CAD/NSTEMI. Per CTS. s/p LHC: multivessel disease. Carotid u/s -no stenosis CT chest small bilateral fluid effusion and atelectasis. On statins, BB, ASA. Echo: LVEF 30-34% Plans for CABG- timing per CTS - Systolic HF with ischemic CMP strict I/Os, daily weights, fluid restriction, low NA diet on IV lasix and bb no charly/arb/aldactone due to CLAUDETTE monitor - CLAUDETTE. Per nephro. santos from obstructive uropathy. s/p waters cath. Renal ultrasound showed severe thickening of the bladder, cholelitiasis. - HTN. Bp controlled. Cont - HLD. On statins. - Anemia. Hb 9.5 - UTI. Per IM. Discussed plan of care w/pt. Prosper Ennis 07/04/22 1833:Attestations Physician AttestationAgree w/findings plan:I have seen and examined the pt, I Agree with the findings and plan as documented by Jyoti Browning. Patient was discussed in the multidisciplinary team today, patient will benefit from CABG however given the recent CLAUDETTE and that his acute admission may be an temporary dialysis consensus was to do CABG but delay surgery till later of the week at 1241 at 1834 RPT #:[id number] OF REPORTPRProgress [id number]:[id number] Available for patient [id number]:10 [facility] 2022-07-04 08:08:00 [id number]:08:00 [facility] ([facility])Cardiothoracic Surgery ProgREPORT#:[id number] REPORT STATUS: SignedDATE:07/04/22 TIME: 0808 PATIENT: SHERRI ARCE UNIT #: [id number]#: [id number] [address] AGE: 81 SEX: M ATTEND: Radha Ward [facility] AUTHOR: Rosalind Toribio PREMIUM CARD CANCELLATION CLERK * ALL edits or amendments must be made on the electronic/computer document * SubjectiveChief complaint:Chest PainPre CABG eval Review of SystemsConstitutional:Denies: chills, fever, malaise. Allergy/Immun:Denies: allergic reaction. Respiratory:Denies: SOB. Cardiovascular:Denies: chest pain, palpitations. GI:Denies: abdominal pain, nausea, vomiting. Heme:Denies: bleeding. All systems rev neg: except as marked Objective GeneralVS/I OLast Documented: Result Date Time Pulse Ox 92 07/04 629 Pulse 78 07/04 629 Resp 26 07/04 629 B/P 113/62 07/03 2099 B/P Mean 81 07/03 2099 Temp 97.6 07/03 1999 O2 Delivery Room air 07/03 1320 24 hour I O ending at 0700: 07/04 0700 07/03 1900 Intake Total 240 Output Total 1100 1800 Balance -860 -1800 Intake, Oral 240 Output, Urine 1100 1800 PATIENT WEIGHT: Weight (lb): 190Weight (oz): 11.2Weight (kg): 86.500 Physical ExamGeneral appearance: alert, oriented, mental status normal, no respiratory distressHEENT: anicteric, mucosal membranes moistNeck: supple/no meningismusCardiovascular: normal heart sounds, regular rate rhythmRespiratory: aerating well, symmetric expansion, no distressAbdomen: soft, non-tender, no distentionExtremities: moves allNeuro/GIFT OFFICER: alert, oriented X 3, normal speech, no motor deficitsPsychiatry: normal affect, normal mood Current MedicationsMedications:Active Meds + DC'd Last 24 HrsMagnesium Sulfate (MAGNESIUM SULFATE 4GM/SWFI 100ML) 100 ML ONCE ONE IV Atorvastatin Calcium (LIPITOR) 20 MG BEDTIME PO Ceftriaxone Sodium (ROCEPHIN 1000MG VIAL) 1,000 MG Q24H IV Sodium Chloride (SODIUM CHLORIDE) 10 MLHeparin Sodium (HEPARIN 5000 UNITS/ML) 5,000 UNIT Q8HR SUBQ Albumin Human (ALBUMINAR-25%) 12.5 GM ASDIR PRN IV Heparin Sodium (Porcine) (HEPARIN SODIUM) 3,000 UNIT ASDIR PRN DIALYSIS Lidocaine HCl (LIDOCAINE HCL/PF) 0.5 ML ASDIR PRN I-DERMAL (CKD) Mannitol (Mannitol 20%) 12.5 GM ASDIR PRN IV Sodium Chloride (SODIUM CHLORIDE 0.9%) 2,000 ML ASDIR PRN IV Sodium Chloride (SODIUM CHLORIDE) 5 ML ASDIR PRN IV Sodium Chloride (SODIUM CHLORIDE) 10 ML ASDIR PRN IV Sodium Chloride (SODIUM CHLORIDE 0.9%) 250 ML ASDIR PRN IV Aspirin (ASPIRIN) 81 MG DAILY PO Metoprolol Tartrate (LOPRESSOR) 12.5 MG BID PO Mupirocin (BACTROBAN 2% 22 GM OINTMENT) 1 APPLIC BID NASAL Tamsulosin HCl (Flomax 0.4 mg) 0.4 MG BEDTIME PO Docusate Sodium (COLACE) 100 MG BID PRN PRN PO Labetalol HCl (LABETALOL HCL) 10 MG Q6H PRN PRN IV Ondansetron HCl (ZOFRAN) 4 MG Q4H PRN PRN IV ResultsFindings/Data:Laboratory Tests 07/04 424 Chemistry Sodium (134 - [...] (Auto) (14.0 - 32.0 %) 12.1 L Starke % (Auto) (4.8 - 9.0 %) 10.8 H Eos % (Auto) (0.3 - 3.7 %) 12.8 H Baso % (Auto) (0.0 - 2.0 %) 0.7 Neut # (Auto) (2.0 - 7.6 x10 3/uL) 5.98 Lymph # (Auto) (1.0 - 3.8 x10 3/uL) 1.17 Starke # (Auto) (0.1 - 0.8 x10 3/uL) 1.04 H Eos # (Auto) (0.0 - 0.2 x10 3/uL) 1.24 H Baso # (Auto) (0.0 - 0.2 x10 3/uL) 0.07 Abs Immat Gran (auto) (0.00 - 0.03 x10 3/uL) 0.17 H Add Manual Diff NO Immature Gran % (0.0 - 2.0 %) 1.8 Nucleated RBC % (0 - 0 %) 0.0 Nucleated RBCs # (Man) (0.0 - 0.1 x10 3/uL) 0.00 Laboratory Tests 07/03 1223 Serology Hepatitis A IgM Ab (NON REACT. INDEX) NON REACTIVE Hep Bs Antigen (NonReactive INDEX) NON REACTIVE Hep B Core IgM Ab (NON REACT. INDEX) NON REACTIVE Hepatitis C Antibody (NON REACT. INDEX) NON REACTIVE Radiology data:Recent Impressions:ULTRASOUND - DUP VEIN WOJCIECH 07/03 1206 Report [...] and 0.19 mm in the distal calf. Impression By: [email or web address] Yasmin Brown M.D.ULTRASOUND - US RETROPERITONEAL COM 07/03 1208 Report Impression - Status: SIGNED Entered: 07/03/2022 1552 IMPRESSION: 1. Bilateral severe hydronephrosis. 2. Severe thickening of the urinary bladder wall with a Waters catheter in place. 3. 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 4. Cholelithiasis Impression By: [email or web address] Yasmin Mata M.D.ULTRASOUND - DUP EXTRACRANIAL WOJCIECH 07/03 1208 Report Impression - Status: SIGNED Entered: 07/03/2022 1256 IMPRESSION: No flow-limiting proximal internal carotid arterial [...] Total occlusion is no detectable patent lumen. Impression By: [email or web address] - Brett Berry M.D.CAT SCAN - CT CHEST W/O CONTRAST 07/03 1227 Report Impression - Status: SIGNED Entered: 07/03/2022 1313 IMPRESSION: Small bilateral pleural effusions with bibasilar atelectasis. Impression By: StevenSBL - Ranjan Boo M.D. Quality: Trauma Gen Surg VTE Prophylaxis - GeneralVTE prophylaxis initiated: yes Diagnosis, Assessment PlanHospital course to date:This is a 81-year-old gentleman who presented to an outside hospital with complaints of chest pains while walking at his home on Thursday. He denies any previous history of coronary artery disease or other [place]. He was seen and evaluated at [facility]. He was found to have a urinary tract infection with urinary retention and acute kidney. He was started on dialysis via a left femoral temporary catheter. He underwent dialysis on Thursday, Thursday. Renal has been consultedDuring his work-up at outside hospital he underwent Left heart catheterization showing severe Left Main 70%. LAD: Proximal diffuse 80% stenosis and then diffuse 60% in the midsegment and on the distal segment, there is focal 70% stenosis. Diagonal branches with luminal irregularities. Left circumflex, codominant circulation with proximal 80%, mid 80 to 90% and then in the OM, there is proximal 60%, distal left circumflex has a 70% stenosis. RCA large and dominant with proximal 40% stenosis, mid 60% stenosis and then diffuse 50% stenosis all the way distally and the PLV and the PDA with luminal irregularities. CV surgery consulted for evaluation for coronary bypass graft. CAROTIDS- No carotid stenosis CT chest complete IMPRESSION: Small bilateral pleural effusions with bibasilar atelectasis. Echo:1. Left ventricle: The cavity size is at the upper limits of normal. Wall thickness is mildly increased. Systolic function is severely reduced. The estimated ejection fraction is 30-34%. Moderate hypokinesis of the entire myocardium. Doppler parameters are consistent with abnormal left ventricular relaxation (grade 1 diastolic dysfunction).2. Pericardium, extracardiac: A small pericardial effusion is identified along the left ventricular free wall, along the right ventricular free wall, and along the right atrial free wall. Assessment/Plan1) CAD Mutlivessel Will obtain echo,carotids. 2) CLAUDETTE Started dialysis on Creatine 7.3 Renal consulted. 3) BPH- Urinary retention. Waters in place Workup for CABG underway. Will get functional assessment with PT. PFT pending Carotid dopplers- No disease Echo PendingDialyiss per Renal. Baseline Cr unknown. 07/04 07/04 Doing well today, alert, up in the chair. Denies chest painEchocardiogram showed LVEF 30 to 34%, mild MR, trivial TRCT chest images reviewedEncourage I-S and mobilizationCreatinine 5.5 from 7.3, good urine output. Renal US showed bilateral severe hydronephrosis. Plan for HD today and tomorrow Will tentatively schedule patient for surgery on Thursday.Patient seen and plan reviewed with Dr Schwarz Consultants: cardiology, cardiovascular surgery, nephrology at 1130 at 0832 RPT #:[id number] OF REPORTPRProgress [id number]:08:[id number] Available for patient [id number]:31:00 [facility] 2022-07-03 16:43:00 [id number] [place], [place] [address] PATIENT NAME: SHERRI ARCE ADMIT DATE: 07/02/22ACCOUNT NO: [id number] ROOM NO: [facility] AGE: 81 REPORT TYPE: eECHOCARDIOGRAM REPORT SEX: M ADMITTING PHYSICIAN:Los Crawford DO ATTENDING PHYSICIAN:Los Crawford DO *[address], [place] [address]Pxnyt: [phone]: [phone] Transthoracic Echocardiogram Patient: Kareem Arce Date: 07/03/2022 BP: 159 / 78 [id number] 1940 Age: 81 Height: 72 in / 183 cmAccession#: [id number] Gender: M Weight: 190.3 lb / 86.5 kgBMI/BSA: 25.8 kg/m 2 / 2.11 m 2 *Ordering Physician: * Gianna Hoover *Interpreting Physician: * Prosper Ennis MD*Personnel Research Scientist: * Desire Tsang [facility] Indications: PRE CABG. Study data: Transthoracic echocardiogram. Procedure: Transthoracicechocardiography was performed. Images were obtained using a Lottay cardiacultrasound machine. Image quality was fair. The study was technicallylimited due to poor acoustic window availability. Complete 2D, completespectral Doppler, and color Doppler. Location: CCU Patient status:Inpatient. Patient room number: 3312. Study status: CHELSEY. Findings Left ventricle: The cavity size is at the upper limits of normal. Wallthickness is mildly increased. Systolic function is severely reduced.The estimated ejection fraction is 30-34%. Regional wall motionabnormalities: Moderate hypokinesis of the entire myocardium. Dopplerparameters are consistent with abnormal left ventricular relaxation(grade 1 diastolic dysfunction).PATIENT NAME: SHERRI ARCE Right ventricle: The cavity size is normal. Systolic function isnormal.Left atrium: The atrium is at the upper limits of normal in size.Right atrium: The atrium is normal in size.Aorta: Aortic root: The aortic root is normal in size.The aorta is normal.Aortic valve: The valve is structurally normal. The valve istrileaflet. There is no evidence of stenosis. There is noregurgitation.Mitral valve: The valve is structurally normal. There is noevidence of stenosis. There is mild regurgitation.Tricuspid valve: The valve is structurally normal. There is trivialregurgitation.Pulmonic valve: The valve is structurally normal. There is noregurgitation.Pericardium: A small pericardial effusion is identified along the leftventricular free wall, along the right ventricular free wall, and alongthe right atrial free wall.Pulmonary arteries:The main pulmonary artery is normal-sized.Systemic veins:Inferior vena cava: The vessel is normal in size. The respirophasicdiameter changes are in the normal range (= 50%). Measurements Left ventricle Value Ref AARTI, LAX [...] cm/sec >=7.0 TDI E/e', med nat, 23 ---------PATIENT NAME: SHERRI ARCE TDI E', avg, TDI [...] --------- ratio CHERELLE, VTI 2.47 cm 2 ---------PATIENT NAME: SHERRI ARCE LVOT/AV, Vpeak 0.66 --------- ratio CHERELLE, Vmax 2.20 cm 2 --------- Mitral valve Value Ref Peak E 0.06 m/sec --------- Peak A 1.42 m/sec --------- Decel time 100 ms --------- Peak E/A ratio 0.88 --------- Pulmonic valve Value Ref [place] v, ED 0.72 m/sec --------- Aortic root Value Ref Root diam 3.5 cm <4.2 Conclusions Summary: 1. Left ventricle: The cavity size is at the upper limits of normal. Wall thickness is mildly increased. Systolic function is severely reduced. The estimated ejection fraction is 30-34%. Moderate hypokinesis of the entire myocardium. Doppler parameters are consistent with abnormal left ventricular relaxation (grade 1 diastolic dysfunction).2. Pericardium, extracardiac: A small pericardial effusion is identified along the left ventricular free wall, along the right ventricular free wall, and along the right atrial free wall. Prepared and electronically signed by Prosper Ennis MD07/03/2022 16:43 at 1643 PATIENT NAME: SHERRI ARCE :43:00G.[id number] for patient [id number]:44:06 [facility] 2022-07-03 15:53:00 [id number]:53:00 [facility] ([facility]ITALHospitalist Progress NoteREPORT#:[id number] REPORT STATUS: SignedDATE:07/03/22 TIME: 1553 PATIENT: SHERRI ARCE UNIT #: [id number]#: [id number] [address] AGE: 81 SEX: M ATTEND: Los Crawford DOADM AUTHOR: Los Crawford DO * ALL edits or amendments must be made on the electronic/computer document * SubjectiveChief complaint:Patient seen and examined during dialysisNo new complaintsHPI:81 y/o man with PMHx of HTN, Dyslipidemia that [facility] with chest pain and found to have a NSTEMI and also acute renal failure. Underwent cardiac cath yesterday and found to have severe CAD including left main disease. Transfer here for CABG evaluation. He also underwent HD Thursday and Thursday of this week. HD catheter was place at [facility]. Currently not having any chest pain. Had chest pain with SOB when he presentted to the previous hospital. Objective GeneralVS/I O:Vital Signs: Date Time Temp Pulse Resp B/P B/P Pulse O2 O2 Flow FiO2 Mean Ox Delivery Rate 07/03 1320 [...] scale Measurement Method PATIENT WEIGHT: Weight (lb): 190Weight (oz): 11.2Weight (kg): 86.500 Physical ExamGeneral appearance: alert, awake, orientedHead/Eyes: atraumatic, EOMI, normal conjunctiva/sclera, normocephalic, PERRLAENT: moist mucosal membranesNeck: full range of motion, no bruit/NL carotids, no JVDCardiovascular: normal heart sounds, regular rate rhythmRespiratory: aerating well, clear to auscultation, symmetric expansion, no distressAbdomen: non-tender, normal bowel sounds, soft, no distention, no guarding, no reboundExtremities: moves all, no cyanosis, no edemaMusculoskeletal: normal inspectionNeuro/GIFT OFFICER: alert, oriented X 3, normal speech, no motor deficits, no sensory deficitsSkin: intact, normal color, no rash Diagnosis, Assessment PlanConsultants: cardiology, cardiovascular surgery, nephrology Free Text DxA P NotesFree text DxA P notes: 1. CAD (coronary artery disease) patient presented with NSTEMI and found to hve severe CAD. Cardiac cath shows: Left Main - Distal 70% LAD - Proximal 80% with another 60% and 70% lessions Cir - Proximal 80%,mid 80-90%, Distal 70% and OM 60% RCA - large dominant with proximal 40%, Mid 60%. Patient on ASA, BB and Statin Cardiology and CV surgeon consulted Obtain echocardiogram Carotid Dopplers negative Physical therapy evaluate and treat PFTs pending 2. HTN (hypertension) patient on metoprolol 12.5 mg BID, will adjust as needed 3. Dyslipidemia on Lipitor 20mg po daliy. Will check lipid profile in am. 4. CLAUDETTE (acute kidney injury) No prior Hx of renal disease. hx of BPH and treated with Fosamax w/o improvement nd continue to have difficulty urinating. On admission was found to be on acute renal filaure and had received HD twice prior to arrival here (thursday and thursday). Creatinine this am was 7.4, BUN 68 * Probably due to obstructive uropathy* waters already in place* Nephrology consuled for HD 5. BPH (benign prostatic hyperplasia) Started on Flomax at the previous hospital, will continue with it. 6. Goiter Hx of Goiter and surgical resection. TSH 3.33, within normal limits. Patient is not on Thyroid medication. 7. anemia of chronic kidney disease Hemoglobin 9.5, monitor 8. Hypokalemia potassium 3.3, replace and recheck in a.m. 9. UTI continue Rocephin for empiric treatment pending results of urine culture DVT prophylaxis: Heparin 5000 units every 8 hoursDiet: CardiacCODE STATUS: Full code Disposition: CABG work-up by cardiothoracic surgery Quality: Gen Med Crit Care VTE ProphylaxisVTE prophylaxis initiated: yes Current MedicationsCurrent medication review:I attest that the foregoing medication list in the medical record is true, accurate, and complete to the best of my knowledge. Advanced Care Plan 65 or OlderDiscussed with: patientDiscussion included: living will (none), power of school commissioner (none), code status (full code) at 1600 RPT #:[id number] OF REPORTPRProgress [id number]:53:[id number] Available for patient [id number]:00:54 [facility] 2022-07-03 15:23:00 [id number]:23:00 [facility] ([facility])Cardiology ConsultationREPORT#:[id number] REPORT STATUS: SignedDATE:07/03/22 TIME: 1523 PATIENT: SHERRI ARCE UNIT #: [id number]#: [id number] [address] AGE: 81 SEX: M ATTEND: Los Crawford DOADM AUTHOR: Carolyn Penny PREMIUM CARD CANCELLATION CLERK * ALL edits or amendments must be made on the electronic/computer document * Carolyn Penny 07/03/22 1523:History of Present Illness HPIRequesting Clinician: Dr. Valencia for consult:Ami complaint:"blockage"PCP:PCP: Los Crawford DO HPI:Mr. Arce is a pleasant 81 y/o M w/ PMHx: HTN, HLD, BPH presented to [facility] on 06[facility]28[facility]22 for chest pain and sob for several days and worsen on the day of admission. He was diagnosed NSTEMI w/ Trop was peaked 7600's, EKG w/ normal ST and CLAUDETTE w/ Cr 14 on admission. He underwent LHCon 07/[address] Layne which showed severe mLM 70% stenosis, pLAD diffuse 80% stenosis, mLAD 60% and focal 70% stenosis; pLCx 80% stenosis, dLCx 70% stenosis, pOM 60% stenosis; pRCA 40% stenosis, mRCA 60% stenosis and diffuse 50-60% dRCA. He transferred to [facility] for CABG. Cardiology is consulted for CAD. Patient denied chest discomfort, no sob, no palpitation. Telemetry shows nsr w/BBB note. His left femoral temporary dialysis catheter was inserted and underwent HD in [place]. Furthermore, on admission he found severe anemia w/ Hb 6.8 w/ no active bleeding. Currently he is on RA, and on HD.Workup today: WBC 10.3, hemoglobin 9.5, hematocrit 29.4, platelet 195. Sodium 144, potassium 3.3, BUN 60, creatinine 7.3. Hemoglobin A1c 4.8. Total cholesterol 119, triglyceride 119, LDL 90, HDL less than 20. TSH 3.33. UA is positive for UTI-he is on Rocephin.Currently, pt is on RA, on HD. History - Adult longitudinalPast medical history:Reports: Hypertension, Dyslipidemia. Additional surgical history:DeniesFamily history:Reports: Heart disease (parents and sibbling.). 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)Drug use: Denies recreational drugsSmoking status for patients 13 years old or older: Former Smoker (quit 20 years ago)Home medications:Home Medications:ASPIRIN 81 MG PO DAILY TAMSULOSIN ER (FLOMAX) 0.4 MG PO BEDTIME ATORVASTATIN (LIPITOR) 20 MG PO DAILY METOPROLOL TARTRATE (LOPRESSOR) 12.5 MG PO BID cefTRIAXone (ROCEPHIN) 1 GM IV Q24H VANCOMYCIN/D5W (VANCOCIN/D5W) 1 GM IV DIALYSIS-DOSE DURING ACETAMINOPHEN (TYLENOL) 650 MG PO Q6H PRN PRN PAIN SCALE 1-3/TEMP ABOVE 100F ONDANSETRON 4 MG IV Q6H PRN PRN NAUSEA AND VOMITING Allergies:Coded Allergies:No Known Allergies (07/02/22) Review of SystemsConstitutional:Denies: chills, fatigue, fever, generalized weakness. Skin:swelling. Denies: diaphoresis. Allergy/Immun:Denies: itching, sneezing. Eyes:Denies: redness, discharge, visual loss/blurred. ENT:Denies: nasal congestion, voice change. Respiratory:Reports: QUINN (dyspnea on exertion), SOB. Denies: parox nocturnal dyspnea, pneumonia. Cardiovascular:Reports: chest pain, dyspnea on exertion, edema. Denies: orthopnea, palpitations, parox noctural dyspnea. GI:Denies: diarrhea, melena, vomiting. :Denies: hematuria. Musculoskeletal:extremity swelling. Denies: extremity pain. Heme:Denies: bleeding, bruising. Endocrine:Denies: cold intolerance, heat intolerance. Neuro:Denies: change in LOC, confusion, dizziness, lightheaded. Psych:Denies: change in mental status. Objective GeneralVS/I O:Vital Signs: Date Time Temp Pulse Resp B/P B/P Pulse O2 O2 Flow FiO2 Mean Ox Delivery Rate 07/03 1320 [...] scale Measurement Method PATIENT WEIGHT: Weight (lb): 190Weight (oz): 11.2Weight (kg): 86.500 Medications:Active Meds + DC'd Last 24 HrsAtorvastatin Calcium (LIPITOR) 20 MG BEDTIME PO Ceftriaxone Sodium (ROCEPHIN 1000MG VIAL) 1,000 MG Q24H IV Sodium Chloride (SODIUM CHLORIDE) 10 MLHeparin Sodium (HEPARIN 5000 UNITS/ML) 5,000 UNIT Q8HR SUBQ Albumin Human (ALBUMINAR-25%) 12.5 GM ASDIR PRN IV Heparin Sodium (Porcine) (HEPARIN SODIUM) 3,000 UNIT ASDIR PRN DIALYSIS Lidocaine HCl (LIDOCAINE HCL/PF) 0.5 ML ASDIR PRN I-DERMAL (CKD) Mannitol (Mannitol 20%) 12.5 GM ASDIR PRN IV Sodium Chloride (SODIUM CHLORIDE 0.9%) 2,000 ML ASDIR PRN IV Sodium Chloride (SODIUM CHLORIDE) 5 ML ASDIR PRN IV Sodium Chloride (SODIUM CHLORIDE) 10 ML ASDIR PRN IV Sodium Chloride (SODIUM CHLORIDE 0.9%) 250 ML ASDIR PRN IV Aspirin (ASPIRIN) 81 MG DAILY PO Heparin Sodium (HEPARIN 5000 UNITS/ML) 5,000 UNIT Q12HR SUBQ (DC) Metoprolol Tartrate (LOPRESSOR) 12.5 MG BID PO Mupirocin (BACTROBAN 2% 22 GM OINTMENT) 1 APPLIC BID NASAL Tamsulosin HCl (Flomax 0.4 mg) 0.4 MG BEDTIME PO Docusate Sodium (COLACE) 100 MG BID PRN PRN PO Labetalol HCl (LABETALOL HCL) 10 MG Q6H PRN PRN IV Ondansetron HCl (ZOFRAN) 4 MG Q4H PRN PRN IV Physical ExamGeneral appearance: alert, awake, oriented, no acute distress, pleasant, conversational, mental status normal, no respiratory distressHead/Eyes: atraumatic, clear corneaENT: moist mucosal membranesNeck: full range of motion, no JVDCardiovascular: CV assessment: regular rate and rhythm, no murmurRespiratory: decreased breath sounds, no distressAbdomen: soft, non-tender, normal bowel sounds, no distention, no guardingGenitourinary: urinary catheter, urineUpper extremity: UE assessment: normal temperature, no edemaLower extremity: LE assessment: normal temperature, no edemaNeuro/GIFT OFFICER: alert, oriented X 3, normal speechPsychiatry: normal affect ResultsFindings/Data:Laboratory Tests 07/03 07/03 07/03 0623 0623 1022 [...] (Auto) (14.0 - 32.0 %) 9.4 L Starke % (Auto) (4.8 - 9.0 %) 10.0 H Eos % (Auto) (0.3 - 3.7 %) 11.7 H Baso % (Auto) (0.0 - 2.0 %) 0.6 Neut # (Auto) (2.0 - 7.6 x10 3/uL) 6.93 Lymph # (Auto) (1.0 - 3.8 x10 3/uL) 0.97 L Starke # (Auto) (0.1 - 0.8 x10 3/uL) 1.03 H Eos # (Auto) (0.0 - 0.2 x10 3/uL) 1.21 H Baso # (Auto) (0.0 - 0.2 x10 3/uL) 0.06 Abs Immat Gran (auto) (0.00 - 0.03 x10 3/uL) 0.10 H Add Manual Diff NO Immature Gran % (0.0 - 2.0 %) 1.0 Nucleated RBC % (0 - 0 %) 0.0 Nucleated RBCs # (Man) (0.0 - 0.1 x10 3/uL) 0.00 Laboratory Tests 07/03 1223 Serology Hepatitis A IgM Ab (NON REACT. INDEX) NON REACTIVE Hep Bs Antigen (NonReactive INDEX) NON REACTIVE Hep B Core IgM Ab (NON REACT. INDEX) NON REACTIVE Hepatitis C Antibody (NON REACT. INDEX) NON REACTIVE Laboratory Tests 07/03 07/03 1047 1047 Urines Urine Color (YEL/STRAW) YELLOW Urine Appearance (CLEAR) CLEAR Urine pH (5.0 - 7.0) 7.0 Ur Specific Tangent (1.005 - 1.030) 1.009 Urine Protein (NEGATIVE) [...] 129 Ur Random Sodium (MEQ/L) 67 Radiology Data:Recent Impressions:RADIOLOGY - XR CHEST 1 V 07/02 Report Impression - Status: SIGNED Entered: 07/03/2022 4116 IMPRESSION: 1. Nonspecific bibasilar opacities may represent atelectasis, edema, and/or pneumonia. 2. Tiny bilateral pleural effusions. Impression By: [email or web address] - Jermaine Pope M.D.ULTRASOUND - DUP VEIN WOJCIECH 07/03 1207 Report [...] and 0.19 mm in the distal calf. Impression By: [email or web address] Yasmin Brown M.D.ULTRASOUND - US RETROPERITONEAL COM 07/03 120 Report Impression - Status: SIGNED Entered: 07/03/2022 1552 IMPRESSION: 1. Bilateral severe hydronephrosis. 2. Severe thickening of the urinary bladder wall with a Waters catheter in place. 3. 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 4. Cholelithiasis Impression By: [email or web address] Yasmin Mata M.D.ULTRASOUND - DUP EXTRACRANIAL WOJCIECH 07/03 120 Report Impression - Status: SIGNED Entered: 07/03/2022 1256 IMPRESSION: No flow-limiting proximal internal carotid arterial [...] Total occlusion is no detectable patent lumen. Impression By: [id number] Yasmin Berry M.D.CAT SCAN - CT CHEST W/O CONTRAST 07/03 1227 Report Impression - Status: SIGNED Entered: 07/03/2022 1313 IMPRESSION: Small bilateral pleural effusions with bibasilar atelectasis. Impression By: StevenSBL - Ranjan Boo M.D. Results: labs reviewed, vital signs reviewed, vital signs stable, rhythm personally rev'd, current med profile rev'dTelemetry Interpretation:nsr Diagnosis, Assessment PlanProblem List/A P: 1. HTN (hypertension) 2. CLAUDETTE (acute kidney injury) 3. CAD (coronary artery disease) 4. Dyslipidemia 5. BPH (benign prostatic hyperplasia) Consultants: cardiology, cardiovascular surgery, nephrologyPlan discussed with: patient, nurse Free Text DxA P NotesFree Text DxA P Notes:Mr. Arce is a pleasant 81 y/o M w/ PMHx: HTN, HLD presented to [facility] on 06/28/22 for chest pain and sob [...] and diffuse 50-60% dRCA. He transferred to [facility] for CABG. Cardiology is consulted for CAD. Patient denied chest discomfort, no sob, no palpitation. Telemetry shows nsr w/ BBB note. His left femoral temporary dialysis catheter was inserted and underwent HD in [place]. Furthermore, on admission he found severe anemia w/ Hb 6.8 w/ no active bleeding. Currently he is on RA, and on HD.Workup today: WBC 10.3, hemoglobin 9.5, hematocrit 29.4, platelet 195. Sodium 144, potassium 3.3, BUN 60, creatinine 7.3. Hemoglobin A1c 4.8. Total cholesterol 119, triglyceride 119, LDL 90, HDL less than 20. TSH 3.33. UA is positive for UTI-he is on Rocephin.Currently, pt is on RA, on HD. - CAD/NSTEMI. Per CTS. s/p LHC: multivessel disease. CABG workup - to evaluate CABG. Carotid u/s -no stenosis CT chest small bilateral fluid effusion and atelectasis. On statins, BB, ASA. Echo result pending - CLAUDETTE. Per nephro. likly from obstructive uropathy. s/p waters cath. Renal ultrasound showed severe thickening of the bladder, cholelitiasis. - HTN. Bp controlled. Cont - HLD. On statins. - Anemia. Hb 9.5 - UTI. Per IM. Discussed plan of care w/pt. Thank you for the kind consult. Prosper Ennis 07/04/22 1834:Attestations Physician AttestationAgree w/findings plan:I have seen and examined the pt, I Agree with the findings and plan as documented by Carolyn Penny. at 1618 at 1834 RPT #:[id number] OF REPORTDPLirmgojoqtox6522-27-08M56:23:00G. [id number] for patient [id number]:21:22 HCACL 2022-07-03 11:09:00 [id number]:09:00 [facility] ([facility])Cardiothoracic Surgery ConsultREPORT#:[id number] REPORT STATUS: SignedDATE:07/03/22 TIME: 1109 PATIENT: SHERRI ARCE UNIT #: [id number]#: [id number] [address] AGE: 81 SEX: M ATTEND: Srinath Kaur [facility] AUTHOR: Gianna Hoover * ALL edits or amendments must be made on the electronic/computer document * Gianna Hoover 07/03/22 1109:History of Present Illness HPIChief complaint:Chest PainHPI:This is a 81-year-old gentleman who presented to an outside hospital with complaints of chest pains while walking at his home on Thursday. He denies any previous history of coronary artery disease or other [place]. He was seen and evaluated at [facility]. He was found to have a urinary tract infection with urinary retention and acute kidney. He was started on dialysis via a left femoral temporary catheter. He underwent dialysis on Thursday, Thursday. Renal has been consultedDuring his work-up at outside hospital he underwent Left heart catheterization showing severe Left Main 70%. LAD: Proximal diffuse 80% stenosis and then diffuse 60% in the midsegment and on the distal segment, there is focal 70% stenosis. Diagonal branches with luminal irregularities. Left circumflex, codominant circulation with proximal 80%, mid 80 to 90% and then in the OM, there is proximal 60%, distal left circumflex has a 70% stenosis. RCA large and dominant with proximal 40% stenosis, mid 60% stenosis and then diffuse 50% stenosis all the way distally and the PLV and the PDA with luminal irregularities. CV surgery consulted for evaluation for coronary bypass graft. HistoryPast Medical History:Reports: Hypertension. 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 Skin:Denies: laceration, rash, swelling. Allergy/Immun:Denies: itching, rhinorrhea. ENT:Denies: ear drainage, ear ringing. Respiratory:Denies: QUINN (dyspnea on exertion), SOB, wheezing. Cardiovascular:Denies: chest pain, QUINN (dyspnea on exertion). GI:Denies: constipation, diarrhea. :Reports: dysuria. Denies: hematuria. Musculoskeletal:Denies: arthritis. Heme:Denies: bleeding, bruising. Neuro:Denies: confusion, dizziness, focal weakness. Psych:Denies: agitation, anxiety. All systems rev neg: except as marked Objective Physical ExamVS/I O:Last Documented: Result Date Time Pulse 79 07/03 0702 Pulse Ox 96 07/03 700 B/P 159/78 07/03 700 B/P Mean 106 07/03 0701 Resp 26 07/03 700 Temp 97.5 07/03 0352 O2 Delivery Room air 07/02 1999 24 hour I O ending at 0700: 07/03 0700 07/02 1900 Intake Total Output Total 1300 Balance -1300 Output, Urine 1300 Patient 86.5 kg Weight Weight Bed scale Measurement Method PATIENT WEIGHT: Weight (lb): 190Weight (oz): 11.2Weight (kg): 86.500 General appearance: alert, awake, orientedHEENT: mucosal membranes moist, pupils reactive to lightNeck: full range of motion, non-tenderCardiovascular: BP/pulses equal bilat., regular rate rhythmRespiratory: aerating well, clear to auscultationAbdomen: soft, non-tenderGenitourinary: urinary catheter, no flank painExtremities: dryMusculoskeletal: full range of motionNeuro/GIFT OFFICER: alert, oriented X 3Skin: dry, intact ResultsFindings/Data:Laboratory Tests 07/03 07/03 07/03 1022 0623 0623 [...] (Auto) (14.0 - 32.0 %) 9.4 L Starke % (Auto) (4.8 - 9.0 %) 10.0 H Eos % (Auto) (0.3 - 3.7 %) 11.7 H Baso % (Auto) (0.0 - 2.0 %) 0.6 Neut # (Auto) (2.0 - 7.6 x10 3/uL) 6.93 Lymph # (Auto) (1.0 - 3.8 x10 3/uL) 0.97 L Starke # (Auto) (0.1 - 0.8 x10 3/uL) 1.03 H Eos # (Auto) (0.0 - 0.2 x10 3/uL) 1.21 H Baso # (Auto) (0.0 - 0.2 x10 3/uL) 0.06 Abs Immat Gran (auto) (0.00 - 0.03 x10 3/uL) 0.10 H Add Manual Diff NO Immature Gran % (0.0 - 2.0 %) 1.0 Nucleated RBC % (0 - 0 %) 0.0 Nucleated RBCs # (Man) (0.0 - 0.1 x10 3/uL) 0.00 Laboratory Tests 07/03 07/03 1047 1047 Urines Urine Color (YEL/STRAW) YELLOW Urine Appearance (CLEAR) CLEAR Urine pH (5.0 - 7.0) 7.0 Ur Specific Tangent (1.005 - 1.030) 1.009 Urine Protein (NEGATIVE) [...] Ur Random Sodium (MEQ/L) 67 Diagnosis, Assessment PlanFree Text A P:This is a 81-year-old gentleman who presented to an outside hospital with complaints of chest pains while walking at his home on Thursday. He denies any previous history of coronary artery disease or other [place]. He was seen and evaluated at [facility]. He was found to have a urinary tract infection with urinary retention and acute kidney. He was started on dialysis via a left femoral temporary catheter. He underwent dialysis on Thursday, Thursday. Renal has been consultedDuring his work-up at outside hospital he underwent Left heart catheterization showing severe Left Main 70%. LAD: Proximal diffuse 80% stenosis and then diffuse 60% in the midsegment and on the distal segment, there is focal 70% stenosis. Diagonal branches with luminal irregularities. Left circumflex, codominant circulation with proximal 80%, mid 80 to 90% and then in the OM, there is proximal 60%, distal left circumflex has a 70% stenosis. RCA large and dominant with proximal 40% stenosis, mid 60% stenosis and then diffuse 50% stenosis all the way distally and the PLV and the PDA with luminal irregularities. CV surgery consulted for evaluation for coronary bypass graft. CAROTIDS- No carotid stenosis CT chest complete IMPRESSION: Small bilateral pleural effusions with bibasilar atelectasis. Assessment/Plan1) CAD Mutlivessel Will obtain echo,carotids. 2) CLAUDETTE Started dialysis on Creatine 7.3 Renal consulted. 3) BPH- Urinary retention. Waters in place Workup for CABG underway. Will get functional assessment with PT. PFT pending Carotid dopplers- No disease Echo PendingDialyiss per Renal. Baseline Cr unknown. Consultants: cardiology, cardiovascular surgery, nephrology Quality: Trauma Gen Surg Advanced Care Plan 65 or OlderDiscussed with: patientDiscussion included: living will (none), power of school commissioner (none), code status (full code) Current MedicationsCurrent medication review:I attest that the foregoing medication list in the medical record is true, accurate, and complete to the best of my knowledge. VTE Prophylaxis - GeneralVTE prophylaxis initiated: yes Lina Schwarz 08/02/22 0905:Attestations Physician AttestationAgree w/findings plan:I have seen and examined Mr Arce. I agree with the findings and plan as documented by ELHAM Stewart. Briefy, 81 YO with severe CAD. Patient will benefit from surgical revascularization. I have explained to him the procedure, risk involved, benefit, alternatives, STS risk score and complications. at 1355 at 0953 RPT #:[id number] OF REPORTVKHyhojplvlgcm2230-68-04R81:09:00G. [id number] for patient fxypUTNMGKMSMOXOOT5725-01-22L46:56:17 HCACL 2022-07-03 08:42:00 [id number]:42:00 [facility] ([facility])Nephrology Consultation NoteREPORT#:[id number] REPORT STATUS: SignedDATE:07/03/22 TIME: 0842 PATIENT: SHERRI ARCE UNIT #: [id number]#: [id number] [address] AGE: 81 SEX: M ATTEND: oLs Crawford DOADM AUTHOR: Evelina Plaza MD * ALL edits or amendments must be made on the electronic/computer document * History of Present IllnessRequesting clinician: Dr. Valencia for consult:Ying complaint:Chest pain or shortness of breathPCP:PCP: Los Crawford DO HPI:This is a 81-year-old male with past medical history of hypertension and hyperlipidemia who was initially admitted to [facility] on 06/30 for shortness of breath and chest pain secondary to non-STEMI. He was found to haveacute renal failure secondary to BPH Per notes. Waters catheter was placed with no urine output, so patient was started on hemodialysis on the and . The patient underwent left heart catheter on 07/02 that showed multivessel disease including left main coronary artery. The patient was transferred to [facility] for CABG evaluation. The patient seen and CVICU and he states no chest pain or shortness of breath currently. In terms to his renal history, he denied any history of renal disease or nephrolithiasis. However, he states dysuria, urinary frequency and urine retention. He has history of tobacco abuse but no NSAIDs. History - Adult longitudinal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)Drug use: Denies recreational drugsSmoking status for patients 13 years old or older: Former Smoker (quit 20 years ago)Allergies:Coded Allergies:No Known Allergies (07/02/22) Review of Systems Free Text ROS NotesFree Text ROS Notes:14 point review system negative unless stated above. Objective GeneralVS/I O:Vital Signs: Date Time Temp Pulse Resp B/P [...] scale Measurement Method PATIENT WEIGHT: Weight (lb): 190Weight (oz): 11.2Weight (kg): 86.500 Medications:Active Meds + DC'd Last 24 HrsAtorvastatin Calcium (LIPITOR) 20 MG BEDTIME PO Aspirin (ASPIRIN) 81 MG DAILY PO Heparin Sodium (HEPARIN 5000 UNITS/ML) 5,000 UNIT Q12HR SUBQ Metoprolol Tartrate (LOPRESSOR) 12.5 MG BID PO Mupirocin (BACTROBAN 2% 22 GM OINTMENT) 1 APPLIC BID NASAL Tamsulosin HCl (Flomax 0.4 mg) 0.4 MG BEDTIME PO Docusate Sodium (COLACE) 100 MG BID PRN PRN PO Labetalol HCl (LABETALOL HCL) 10 MG Q6H PRN PRN IV Ondansetron HCl (ZOFRAN) 4 MG Q4H PRN PRN IV Physical ExamGeneral appearance: alert, awake, orientedHead/eyes: atraumatic, normocephalicENT: moist mucous membranes, normal noseNeck: non-tender, no JVDCardiovascular: regular rate and rhythm, no murmurRespiratory: normal breath sounds, no distressAbdomen: no guarding, no reboundExtremities: non-tender, no edemaSkin: dry, no rash ResultsFindings/Data:Laboratory Tests 07/03 07/03 0623 0623 Chemistry Sodium [...] (Auto) (14.0 - 32.0 %) 9.4 L Starke % (Auto) (4.8 - 9.0 %) 10.0 H Eos % (Auto) (0.3 - 3.7 %) 11.7 H Baso % (Auto) (0.0 - 2.0 %) 0.6 Neut # (Auto) (2.0 - 7.6 x10 3/uL) 6.93 Lymph # (Auto) (1.0 - 3.8 x10 3/uL) 0.97 L Starke # (Auto) (0.1 - 0.8 x10 3/uL) 1.03 H Eos # (Auto) (0.0 - 0.2 x10 3/uL) 1.21 H Baso # (Auto) (0.0 - 0.2 x10 3/uL) 0.06 Abs Immat Gran (auto) (0.00 - 0.03 x10 3/uL) 0.10 H Add Manual Diff NO Immature Gran % (0.0 - 2.0 %) 1.0 Nucleated RBC % (0 - 0 %) 0.0 Nucleated RBCs # (Man) (0.0 - 0.1 x10 3/uL) 0.00 Radiology data:Recent Impressions:RADIOLOGY - XR CHEST 1 V 07/02 2134 Report Impression - Status: SIGNED Entered: 07/03/2022 9239 IMPRESSION: 1. Nonspecific bibasilar opacities may represent atelectasis, edema, and/or pneumonia. 2. Tiny bilateral pleural effusions. Impression By: [email or web address] - Jermaine Pope M.D. Diagnosis, Assessment PlanConsultants: cardiology, cardiovascular surgery, nephrology Free Text DxA P NotesFree text DxA P notes:Assessment:1-CLAUDETTE likely from urinary retention. 6-yqu-YVTSZ6- VUY3-ctayjaynbfnw0-qofmviubawchwd Plan:-unknown Scr baseline. - He underwent LHC yesterday. HD today for clearance. -Continue Waters catheter and strict intake and output-We will obtain UA/urine sodium and UPCR-Renal ultrasound- CT surgery eval for CABG. - okay for cardiac diet. Thank you for the kind consultation. We will continue to follow Mr. Arce at 1050 RPT #:[id number] OF REPORTLKJwmujwqtpcev0201-36-71K65:42:00G. [id number] for patient [id number]:52:34 HCACL 2022-07-02 19:45:00 [id number]:45:00 [facility] ([facility]ospital[facility] History PhysicalREPORT#:[id number] REPORT STATUS: SignedDATE:07/02/22 TIME: 1944 PATIENT: SHERRI ARCE UNIT #: [id number]#: [id number] [address] AGE: 81 SEX: M ATTEND: Los Crawford DOADM AUTHOR: Sarbjit Mcarthur MD * ALL edits or amendments must be made on the electronic/computer document * History of Present Illness HPIChief complaint:Patient transfer here from [facility] with CAD in need of CABGPCP:PCP: Los Crawford DO HPI:81 y/o man with PMHx of HTN, Dyslipidemia that [facility] with chest pain and found to have a NSTEMI and also acute renal failure. Underwent cardiac cath yesterday and found to have severe CAD including left main disease. Transfer here for CABG evaluation. He also underwent HD Thursday and Thursday of this week. HD catheter was place at [facility]. Currently not having any chest pain. Had chest pain with SOB when he presentted to the previous hospital.Informant/historian: patient, prior records History Past Medical Surgical HxPatient History: 1. 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 Respiratory:Denies: QUINN (dyspnea on exertion), hemoptysis, non productive cough, parox nocturnal dyspnea, pleurisy, pleuritic pain, pneumonia, productive cough (sputum), SOB, wheezing, other. Cardiovascular:Reports: chest pain. Denies: QUINN (dyspnea on exertion), edema, orthopnea, palpitations, parox nocturnal dyspnea, other. All systems rev neg: except as noted Physical ExamVS/I O:BP -140/79 P - 84 RR - 18 T- 98.6General appearance: alert, awake, orientedHead/Eyes: atraumatic, EOMI, normal conjunctiva/sclera, normocephalic, PERRLAENT: moist mucosal membranesNeck: full range of motion, no bruit/NL carotids, no JVDCardiovascular: normal heart sounds, regular rate rhythmRespiratory: aerating well, clear to auscultation, symmetric expansion, no distressAbdomen: non-tender, normal bowel sounds, soft, no distention, no guarding, no reboundExtremities: moves all, no cyanosis, no edemaMusculoskeletal: normal inspectionNeuro/GIFT OFFICER: alert, oriented X 3, normal speech, no motor deficits, no sensory deficitsSkin: intact, normal color, no rash Diagnosis, Assessment PlanProblem List/A P: 1. CAD (coronary artery disease) patient presented with NSTEMI and found to hve severe CAD. Cardiac cath shows: Left Main - Distal 70% LAD - Proximal 80% with another 60% and 70% lessions Cir - Proximal 80%,mid 80-90%, Distal 70% and OM 60% RCA - large dominant with proximal 40%, Mid 60%. Patient on ASA, BB and Statin Cardiology and CV surgeon consulted 2. HTN (hypertension) patient on metoprolol 12.5 mg BID, will adjust as needed 3. Dyslipidemia on Lipitor 20mg po daliy. Will check lipid profile in am. 4. CLAUDETTE (acute kidney injury) No prior Hx of renal disease. hx of BPH and treated with Fosamax w/o improvement nd continue to have difficulty urinating. On admission was found to be on acute renal filaure and had received HD twice prior to arrival here (thursday and thursday). Creatinine this am was 7.4, BUN 68 * Probably due to obstructive uropathy* waters already in place* Nephrology consuled for HD 5. BPH (benign prostatic hyperplasia) Started on Flomax at the previous hospital, will continue with it. 6. Goiter Hx of Goiter and surgical resection. Will check TSH. Patient is not on Thyroid medication. Free Text A P:patient was on vancomycin and Rocephin for Unkown reason. ? UTI. Urine cultures were negative per report. Will re-check CBC, UA and CXR. Hold antibiotics at this time.Consultants: cardiology, cardiovascular surgery, nephrologyPlan discussed with: patientTime spent: Time spent on patient care (minutes): 62Resuscitation discussion: Discussed with: patientCode status: full code Quality: Gen Med Crit Care VTE ProphylaxisVTE prophylaxis initiated: yes Current MedicationsCurrent medication review:I attest that the foregoing medication list in the medical record is true, accurate, and complete to the best of my knowledge. Advanced Care Plan 65 or OlderDiscussed with: patientDiscussion included: living will (none), power of school commissioner (none), code status (full code) at 3623 RPT #:[id number] OF REPORTHPHistory and physical yztiacsrjrx0497-71-52C99:45:00G.[id number] -[id number] for patient wiaqEDPCJYIIASQOTL2997-94-77F34:13:31 HCACL
[2023-05-19 10:54] LABS: Absolute Lymphocytes (CBC) 0.7 K/uL (0.7-4.9); Hematocrit 34.6 % (39.6-49.0); Lymphocytes % 6.3 % (15.3-44.8); MCV 102.6 fL (80-100); MPV 7.5 fL (7.6-11.3); Platelets 219 thou/uL (152-406); RBC Red Blood Cell Count 3.37 M/uL (4.33-5.43)
[2023-05-19 10:56] LABS: Protime INR 1.18
[2023-05-19 11:16] LABS: Albumin 3.2 g/dL (3.4-5.0); Bilirubin Total 0.4 mg/dL (0.2-1.0); Potassium 3.8 mEq/L (3.5-5.1); Protein, Total 8.3 g/dL (6.4-8.2)
--- NOTE | 2023-05-19 11:19 | RAD REPORT ---
EXAM DESCRIPTION: RAD - Chest Single View - 05/19/2023 11:11 am CLINICAL HISTORY: COUGH Chest pain. COMPARISON: Chest Single View dated 08/06/2022; Chest Single View dated 06/28/2022; Chest Pa And Lat (2 Views) dated 07/01/2018; Chest Pa And Lat (2 Views) dated 06/19/2018 FINDINGS: Portable technique limits examination quality. The lungs are emphysematous. Patchy opacity is present in the right lung base likely related to infil trate/pneumonia. The heart is mildly enlarged in size. Sternotomy wires present. IMPRESSION: Developing pneumonia suspected right lower lobe.
--- NOTE | 2023-05-19 11:40 | ER ---
Nurse's Notes [facility] Name: Rio Strauss Age: 82 yrs Sex: Male : 1940 Arrival Date: 05/19/2023 Time: 10:18 Bed 6 Private MD: Diagnosis: Pneumonia, unspecified organism;Hypoxemia;Dyspnea, unspecified Presentation: 05/19 10:19 Chief complaint: EMS states: Pt finished getting dialysis at [facility] and as he was rs5 making his way out the door he became very dizzy and hypotensive. When EMS arrived pt was O2 sats was 92% RA and BP systolic 80's. Pt has also had a cough for past three days and is coughing up secretions. Coronavirus screen: cough unrelated to allergies, fatigue. Ebola Screen: No symptoms or risks identified at this time. Initial Sepsis Screen: Does the patient meet any 2 criteria? No. Patient's initial sepsis screen is negative. Does the patient have a suspected source of infection? No. Patient's initial sepsis screen is negative. Risk Assessment: Do you want to hurt yourself or someone else? Patient reports no desire to harm self or others. Onset of symptoms was May 19, 2023. 10:19 Method Of Arrival: EMS: [facility] rs5 10:19 Acuity: SHI 3 rs5 Historical: - Allergies: 10:24 No Known Allergies; rs5 - PMHx: 10:24 Dialysis; Hyperlipidemia; Hypertension; kidney disease; Myocardial infarction; rs5 - PSHx: 10:24 cardiac stents; Coronary Angioplasty; Coronary artery bypass graft; rs5 - Immunization history:: Adult Immunizations up to date. - Social history:: Smoking status: Patient denies any tobacco usage or history of. - Family history:: not pertinent. - Hospitalizations: : No recent hospitalization is reported. Screenin:37 [facility] ED Fall Risk Assessment (Adult) History of falling in the last 3 months, ld1 including since admission No falls in past 3 months (0 pts). Abuse screen: Denies threats or abuse. Denies injuries from another. Nutritional screening: No deficits noted. Tuberculosis screening: No symptoms or risk factors identified. Assessment: 10:37 General: Appears in no apparent distress. comfortable, Behavior is calm, cooperative, ld1 appropriate for age. Pain: Denies pain. Neuro: Level of Consciousness is awake, alert, obeys commands, Oriented to person, place, time, situation. Cardiovascular: Capillary refill < 3 seconds Patient's skin is warm and dry. Rhythm is sinus rhythm. Respiratory: Reports cough that is non-productive, Airway is patent Respiratory effort is even, unlabored. Respiratory: GI: Abdomen is flat, non-distended. : No signs and/or symptoms were reported regarding the genitourinary system. EENT: No signs and/or symptoms were reported regarding the EENT system. Derm: No signs and/or symptoms reported regarding the dermatologic system. Musculoskeletal: No signs and/or symptoms reported regarding the musculoskeletal system. 12:00 Reassessment: Patient and/or family updated on plan of care and expected duration. Pain rs5 level reassessed. Patient is alert, oriented x 3, equal unlabored respirations, skin warm/dry/pink. Patient denies pain at this time. Patient states feeling better. 13:30 Reassessment: Patient appears in no apparent distress at this time. No changes from ld1 previously documented assessment. 15:30 Reassessment: Patient appears in no apparent distress at this time. No changes from ld1 previously documented assessment. Patient and/or family updated on plan of care and expected duration. Pain level reassessed. 16:58 Reassessment: Attempted to call report. Nurse not answering. Notified Med Surg charge ld1 nurse. 18:07 Reassessment: Patient appears in no apparent distress at this time. No changes from ld1 previously documented assessment. Patient and/or family updated on plan of care and expected duration. Pain level reassessed. Waiting on room to be ready upstairs. Report given at 1730. Vital Signs: 10:19 BP 122 / 65; Pulse 80; Resp 18; Pulse Ox 100% on R/A; rs5 10:41 BP 107 / 61; Pulse 67; Resp 17; Pulse Ox 99% on R/A; Weight 81.65 kg (R); Height 6 ft. rs5 0 in. (R); 11:18 BP 107 / 67; Pulse 62; Resp 18; Pulse Ox 96% on R/A; ld1 11:57 BP 107 / 51; Pulse 63; Resp 18; Pulse Ox 97% on R/A; ld1 12:09 BP 98 / 52; Pulse 64; Resp 18; Pulse Ox 95% on R/A; ld1 17:29 BP 107 / 59; Pulse 77; Resp 18; Pulse Ox 97% on R/A; ld1 10:41 Body Mass Index 24.41 (81.65 kg, 182.88 cm) rs5 ED Course: 10:19 Patient arrived in ED. rs5 10:20 Jonah Mustafa DO is Attending Physician. ms3 10:23 Attending Physician role handed off by Jonah Mustafa DO rn 10:23 Lee Mancia MD is Attending Physician. rn 10:24 Triage completed. rs5 10:36 Blood Culture Adult (2) Sent. ld1 10:36 CMP Sent. ld1 10:36 CBC with Diff Sent. ld1 10:36 Lactate w/ 2H reflex if indic. Sent. ld1 10:37 Protime (+inr) Sent. ld1 10:37 Ptt, Activated Sent. ld1 10:37 SARS-COV-2 RT PCR Sent. ld1 10:37 Flu Sent. ld1 10:37 BNP Sent. ld1 10:37 No provider procedures requiring assistance completed. Inserted saline lock: 20 gauge ld1 in left antecubital area, using aseptic technique. Blood collected. 10:37 Patient has correct armband on for positive identification. Placed in gown. Bed in low ld1 position. Call light in reach. Side rails up X2. cafeteria monitor on. Pulse ox on. NIBP on. Door closed. Noise minimized. Warm blanket given. 10:38 Philippe Tovar, RN is Primary Nurse. rs5 11:13 Chest Single View XRAY In Process Unspecified. EDMS 11:39 Arely Arambula MD is Hospitalizing Provider. rn 12:41 Patient admitted, IV remains in place. rs5 17:29 Arm band placed on right wrist. ld1 Administered Medications: 11:30 Drug: Rocephin IV 1 grams IV at calculated rate once; Given slow IV push per pharmacy rs5 instructions Route: IV; Rate: calculated rate; Site: left antecubital; 11:45 Follow up: Response: No adverse reaction rs5 Medication: 10:37 VIS not applicable for this client. ld1 Outcome: 11:39 Decision to Hospitalize by Provider. rn 12:41 Admitted to ER Hold. Please see [facility] for further documentation. rs5 12:41 Condition: stable 12:41 Instructed on the need for admit, Demonstrated understanding of instructions, 17:31 Patient left the ED. ld1 18:11 Patient left the ED. rs5 Signatures: Dispatcher [employer] EDMS Lee Mancia MD MD rn Sims, Marcus, DO DO ms3 Nathalie Mustafa RN RN ld1 Philippe Tovar RN RN rs5
--- NOTE | 2023-05-19 11:40 | EDPHYS ---
Physician Documentation [facility] Name: Rio Strauss Age: 82 yrs Sex: Male : 1940 Arrival Date: 05/19/2023 Time: 10:18 Bed 6 Private MD: ED Physician Lee Mancia HPI: 05/19 10:28 This 82 yrs old Male presents to ER via EMS with complaints of cough. rn 10:28 The patient or guardian reports cough. Onset: The symptoms/episode began/occurred 3 rn day(s) ago. Severity of symptoms: At their worst the symptoms were mild, in the emergency department the symptoms are unchanged. Modifying factors: The symptoms are alleviated by nothing, the symptoms are aggravated by nothing. Associated signs and symptoms: Pertinent positives: rhinorrhea, Pertinent negatives: chest pain, sore throat. The patient has not experienced similar symptoms in the past. The patient has been recently seen by a physician:. Patient brought in by EMS from dialysis center, completed dialysis, was leaving when got lightheaded, near syncope, did not lose consciousness or fall. Patient reports feeling sick for the last 3 days with cough, congestion, mild shortness of breath. Patient states dialysis did not help his symptoms.. Historical: - Allergies: 10:24 No Known Allergies; rs5 - PMHx: 10:24 Dialysis; Hyperlipidemia; Hypertension; kidney disease; Myocardial infarction; rs5 - PSHx: 10:24 cardiac stents; Coronary Angioplasty; Coronary artery bypass graft; rs5 - Immunization history:: Adult Immunizations up to date. - Social history:: Smoking status: Patient denies any tobacco usage or history of. - Family history:: not pertinent. - Hospitalizations: : No recent hospitalization is reported. ROS: 10:28 Constitutional: Negative for fever, chills, and weight loss, ENT: Positive for nasal rn congestion Cardiovascular: Negative for chest pain, palpitations, and edema, Respiratory: Positive for cough and shortness of breath Abdomen/GI: Negative for abdominal pain, nausea, vomiting, diarrhea, and constipation, MS/Extremity: Negative for injury and deformity, Skin: Negative for injury, rash, and discoloration, Neuro: Positive for generalized weakness Exam: 10:28 Constitutional: This is a well developed, well nourished patient who is awake, alert, rn and in no acute distress. Head/Face: Normocephalic, atraumatic. Cardiovascular: Regular rate and rhythm. No pulse deficits. Respiratory: Mild tachypnea, no retractions, coarse bilateral breath sounds Abdomen/GI: Soft, non-tender Skin: Warm, dry MS/ Extremity: Pulses equal, no cyanosis. Neuro: Awake and alert, GCS 15 10:34 ECG was reviewed by the Attending Physician. rn Vital Signs: 10:19 BP 122 / 65; Pulse 80; Resp 18; Pulse Ox 100% on R/A; rs5 10:41 BP 107 / 61; Pulse 67; Resp 17; Pulse Ox 99% on R/A; Weight 81.65 kg (R); Height 6 ft. rs5 0 in. (R); 11:18 BP 107 / 67; Pulse 62; Resp 18; Pulse Ox 96% on R/A; ld1 11:57 BP 107 / 51; Pulse 63; Resp 18; Pulse Ox 97% on R/A; ld1 12:09 BP 98 / 52; Pulse 64; Resp 18; Pulse Ox 95% on R/A; ld1 17:29 BP 107 / 59; Pulse 77; Resp 18; Pulse Ox 97% on R/A; ld1 10:41 Body Mass Index 24.41 (81.65 kg, 182.88 cm) rs5 MDM: 10:23 Patient medically screened. rn 11:38 Differential Diagnosis: Bronchitis Influenza Viral Syndrome Pneumonia Other Pulmonary rn edema. Data reviewed: vital signs, nurses notes, lab test result(s), radiologic studies, plain films, and as a result, I will admit patient. Consideration of Admission/Observation Patient was admitted/placed on observation. Escalation of care including admission/observation considered. Independent interpretation of the following test(s) in the Emergency Department X-Ray: My interpretation is Chest x-ray images show basilar opacities per my interpretation. Counseling: I had a detailed discussion with the patient and/or guardian regarding the historical points, exam findings, and any diagnostic results supporting the discharge/admit diagnosis, lab results, radiology results, the need for further work-up and treatment in the hospital. 05/19 10:23 Order name: Blood Culture Adult (2) rn 05/19 10:23 Order name: CBC with Diff; Complete Time: 11: rn 05/19 10:23 Order name: CMP; Complete Time: : rn 05/19 10:23 Order name: Lactate w/ 2H reflex if indic.; Complete Time: 11: rn 05/19 10:23 Order name: Protime (+inr); Complete Time: 11:21 rn 05/19 10:23 Order name: Ptt, Activated; Complete Time: 11:21 rn 05/19 10:23 Order name: Flu; Complete Time: 11:21 rn 05/19 10:23 Order name: SARS-COV-2 RT PCR; Complete Time: 11:35 rn 05/19 10:23 Order name: BNP; Complete Time: 11: rn 05/19 10:23 Order name: Chest Single View XRAY; Complete Time: 11: rn 05/19 10:23 Order name: EKG; Complete Time: 10:24 rn 05/19 10:23 Order name: Accucheck; Complete Time: 10:36 rn 05/19 10:23 Order name: Cardiac monitoring; Complete Time: 10:36 rn 05/19 10:23 Order name: EKG - Nurse/Tech; Complete Time: 10:36 rn 05/19 10:23 Order name: IV Saline Lock - Large Bore; Complete Time: 10:36 rn 05/19 10:23 Order name: Labs collected and sent; Complete Time: 10:36 rn 05/19 10:23 Order name: O2 Per Protocol; Complete Time: 10:24 rn 05/19 10:23 Order name: O2 Sat Monitoring; Complete Time: 10:24 rn 05/19 10:23 Order name: Vital Signs; Complete Time: 10:24 rn EC:34 Rate is 64 beats/min. Rhythm is regular. QRS [place] is Normal. QRS interval is prolonged rn at 144 msec. QT interval is normal. No Q waves. T waves are Normal. No ST changes noted. Clinical impression: LBBB. Interpreted by me. Reviewed by me. Administered Medications: 11:30 Drug: Rocephin IV 1 grams IV at calculated rate once; Given slow IV push per pharmacy rs5 instructions Route: IV; Rate: calculated rate; Site: left antecubital; 11:45 Follow up: Response: No adverse reaction rs5 Disposition Summary: 05/19/23 11:39 Hospitalization Ordered Notes: Hospitalization Status: Inpatient Admission rn Provider: Arely Arambula rn Location: Telemetry/MedSurg (Inpatient) rn Condition: Stable rn Problem: new rn Symptoms: are unchanged rn Bed/Room Type: Standard rn Room Assignment: 224(05/19/23 16:50) bd Diagnosis - Pneumonia, unspecified organism rn - Hypoxemia rn - Dyspnea, unspecified rn Forms: - Medication Reconciliation Form rn - SBAR form rn - Leadership Thank You Letter rn Signatures: Dispatcher [employer] EDFany Hull Roman, MD MD rn Sotelo, Ricky, RN RN rs5 Corrections: (The following items were deleted from the chart) 16:50 11:39 rn bd
[2023-05-19] MEDS ORDERED: CEFTRIAXONE 1000 MG/VIAL ONE (11:41)
--- NOTE | 2023-05-19 12:05 | P.HP ---
Certification for Inpatient Patient admitted to: Inpatient With expected LOS: <2 Midnights Patient will require the following post-hospital care: None Practitioner: I am a practitioner with admitting privileges, knowledge of patient current condition, hospital course, and medical plan of care. Services: Services provided to patient in accordance with Admission requirements found in Title 42 Section 412.3 of the Code of Federal Regulations Patient History Date of Service: 05/19/23 History of Present Illness: 82-year-old male with a past medical history of end-stage renal disease on hemodialysis, hyperlipidemia, hypertension, myocardial infarction, presents to the emergency room with cough, mild shortness of breath, worse with exertion. Was transferred from dialysis center. Reports lightheadedness after dialysis. He reports no loss of consciousness, no fall. Reports cough over the last 24 hours, reports associated clear nasal drainage, rhinorrhea, no reported shor tness of breath, chest pain, edema. EKG4 Rate is 64 beats/min. Rhythm is regular. QRS [place] is Normal. QRS interval is prolonged at 144 msec. QT interval is normal. No Q waves. T waves are Normal. No ST changes noted. Clinical impression: LBBB. Plan to admit for pneumonia, dyspnea. Chest x-ray IMPRESSION: Developing pneumonia suspected right lower lobe. Laboratory evaluation mild leukocytosis 11.10, microcytic anemia 11.1 34.6, acute chronic kidney disease, elevated BUN 30 creatinine 6.96, elevated BNP 4961, SARS negative Allergies No Known Allergies Allergy (Verified 06/17/18 16:59) Home Medications: Acetaminophen [Tylenol] 640 mg PO Q6HP PRN 08/06/22 Amiodarone HCl [Cordarone*] 200 mg PO BID 08/06/22 Aspirin Chewable [Aspirin Chewable*] 81 mg PO DAILY 08/06/22 Atorvastatin Calcium 40 mg PO BEDTIME 08/06/22 Clopidogrel Bisulfate [Plavix*] 75 mg PO DAILY 08/06/22 Furosemide [Lasix*] 40 mg PO DAILY 08/06/22 Midodrine HCl 10 mg PO TID 08/06/22 Sulfamethoxazole/Trimethoprim [Bactrim 400-80 mg Tablet] 1 each PO BID 10 Days #20 tab 08/07/22 - Past Medical/Surgical History Diabetic: No -: Chronic hypotension -: ESRD (Dr. Greer/ Dr. Marin) -: BPH -: CHF -: HLD -: thyroidectomy -: testicle removal -: cataract sx -: CABG Psychosocial/ Personal History: Lives at home, alone - Family History Father -: Cancer Notes: bone ca Mother -: Heart disease Brother -: Heart disease - Social History Alcohol use: No CD- Drugs: No Caffeine use: No Review of Systems 10-point ROS is otherwise unremarkable Physical Examination - Physical Exam General: Alert, In no apparent distress, Oriented x3 HEENT: Atraumatic, Normocephalic Neck: Supple, 2+ carotid pulse no bruit Respiratory: Normal air movement, Crackles/rales (RLL) Cardiovascular: No edema, Normal pulses Capillary refill: <2 Seconds Gastrointestinal: Normal bowel sounds, Soft and benign Musculoskeletal: No clubbing, No swelling Integumentary: No rashes, No breakdown Neurological: Normal speech, Normal strength at 5/5 x4 extr - Studies Laboratory Data (last 24 hrs) 05/19/23 05/19/23 05/19/23 10:30 10:30 10:30 WBC 11.10 H Hgb 11.1 L Hct 34.6 L Plt Count 219 PT 12.9 H INR 1.18 APTT 35.3 Sodium 135 L Potassium 3.8 BUN 30 H Creatinine 6.96 H Glucose 86 Total Bilirubin 0.4 AST 87 H ALT 67 H Alkaline Phosphatase 188 H Microbiology Data (last 24 hrs): 05/19/23 10:30 Nasopharnyx Influenza Type A Antigen Screen - Final 05/19/23 10:30 Nasopharnyx Influenza Type B Antigen Screen - Final Assessment and Plan - Plan Assessment plan Acute hypoxic respiratory failure secondary to pneumonia IV antibiotics, O2 2 L keep sats greater than 92% EKG4 Rate is 64 beats/min. Rhythm is regular. QRS [place] is Normal. QRS interval is prolonged at 144 msec. QT interval is normal. No Q waves. T waves are Normal. No ST changes noted. Clinical impression: LBBB. Chest x-ray IMPRESSION: Developing pneumonia suspected right lower lobe. aboratory evaluation mild leukocytosis 11.10, microcytic anemia likely from chronic kidney disease 1 hemoglobin 1.1 34.6, trend H&H Elevated BNP Likely secondary from end-stage renal disease elevated BNP 4961, SARS negative End-stage renal disease on hemodialysis Nephrology consult acute chronic kidney disease, elevated BUN 30 creatinine 6.96, hyperlipidemia hypertension History myocardial infarction resume appropriate home meds Full code Renal diet DVT heparin, Discharge Plan: Home - Advance Directives Does patient have a Living Will: No Does patient have a Durable POA for Healthcare: No - Code Status/Comfort Care Code Status: Full Code Critical Care: No Time Spent Managing Pts Care (In Minutes): 55
[2023-05-19] MEDS ORDERED: ONDANSETRON 4 MG/2 ML VIAL IV PRN (12:59)
[2023-05-19] MEDS ORDERED: ACETAMINOPHEN 500 MG TAB PO PRN (12:59)
[2023-05-19] MEDS ORDERED: ALBUTEROL 2.5 MG/3 ML NEB SOL NEB PRN (12:59)
[2023-05-19] MEDS ORDERED: FUROSEMIDE 40 MG/4 ML VIAL IV ONE (13:15)
[2023-05-19] MEDS: IPRATROPIUM BROM 0.5MG/2.5ML NEB SCH ×2 (13:35→19:42)
[2023-05-19] MEDS ORDERED: IPRATROPIUM BROM 0.5MG/2.5ML ONE (13:48)
[2023-05-19] MEDS: HEPARIN 5000 UNIT/ML 1 ML VIAL SQ SCH (17:00)
--- NOTE | 2023-05-19 17:58 | P.CNS ---
Date of Consult: 05/19/23 Reason for Consult: ESRD Requesting Physician: Arely Arambula Chief Complaint: Dyspnea History of Present Illness: 82-year-old male with a past medical history of end-stage renal disease on hemodialysis, hyperlipidemia, hypertension, myocardial infarction, presents to the emergency room with cough, mild shortness of breath, worse with exertion. Was transferred from dialysis center. Reports lightheadedness after dialysis. He reports no loss of consciousness, no fall. Reports cough over the last 24 hours, reports associated clear nasal drainage, rhinorrhea, no reported shortness of breath, chest pain, edema. EKG4 Rate is 64 beats/min. Rhythm is regular. QRS [place] is Normal. QRS interval is prolonged at 144 msec. QT interval is normal. No Q waves. T waves are Normal. No ST changes noted. Clinical impression: LBBB. Plan to admit for pneumonia, dyspnea. Chest x-ray IMPRESSION: Developing pneumonia suspected right lower lobe. Laboratory evaluation mild leukocytosis 11.10, microcytic anemia 11.1 34.6, acute chronic kidney disease, elevated BUN 30 creatinine 6.96, elevated BNP 4961, SARS negative. 10:28 This 82 yrs old Male presents to ER via EMS with complaints of cough. rn 10:28 The patient or guardian reports cough. Onset: The symptoms/episode began/occurred 3 rn day(s) ago. Severity of symptoms: At their worst the symptoms were mild, in the emergency department the symptoms are unchanged. Modifying factors: The symptoms are alleviated by nothing, the symptoms are aggravated by nothing. Associated signs and symptoms: Pertinent positives: rhinorrhea, Pertinent negatives: chest pain, sore throat. The patient has not experienced similar symptoms in the past. The patient has been recently seen by a physician:. Patient brought in by EMS from dialysis center, completed dialysis, was leaving when got lightheaded, near syncope, did not lose consciousness or fall. Patient reports feeling sick for the last 3 days with cough, congestion, mild shortness of breath. Patient states dialysis did not help his symptoms.. Allergies No Known Allergies Allergy (Verified 06/17/18 16:59) Home medications list reviewed: Yes Home Medications: Acetaminophen [Tylenol] 640 mg PO Q6HP PRN 08/06/22 Amiodarone HCl [Cordarone*] 200 mg PO BID 08/06/22 Aspirin Chewable [Aspirin Chewable*] 81 mg PO DAILY 08/06/22 Atorvastatin Calcium 40 mg PO BEDTIME 08/06/22 Clopidogrel Bisulfate [Plavix*] 75 mg PO DAILY 08/06/22 Furosemide [Lasix*] 40 mg PO DAILY 08/06/22 Midodrine HCl 10 mg PO TID 08/06/22 Sulfamethoxazole/Trimethoprim [Bactrim 400-80 mg Tablet] 1 each PO BID 10 Days #20 tab 08/07/22 - Past Medical/Surgical History Diabetic: No -: Chronic hypotension -: ESRD (Dr. Greer/ Dr. Marin) -: BPH -: CHF -: HLD -: thyroidectomy -: testicle removal -: cataract sx -: CABG Psychosocial/ Personal History: Lives at home, alone - Family History Father Medical History: Cancer Notes: bone ca Mother Medical History: Heart disease Brother Medical History: Heart disease - Social History Smoking Status: Former smoker Alcohol use: No CD- Drugs: No Caffeine use: No Review of Systems 10-point ROS is otherwise unremarkable General: Weakness, Malaise Respiratory: SOB with Excertion Physical Examination Temp Pulse Resp BP Pulse Ox 98.2 F 70 17 92/53 L 99 05/19/23 16:00 05/19/23 16:00 05/19/23 16:00 05/19/23 16:00 05/19/23 16:00 General: In no apparent distress, Oriented x3, Cooperative HEENT: Atraumatic Neck: Supple Respiratory: Normal air movement Cardiovascular: No edema Gastrointestinal: Soft and benign, Non-distended Musculoskeletal: No clubbing, No contractures Integumentary: No rashes, No cyanosis Neurological: Normal speech Laboratory Data (last 24 hrs) 05/19/23 05/19/23 05/19/23 10:30 10:30 10:30 WBC 11.10 H Hgb 11.1 L Hct 34.6 L Plt Count 219 PT 12.9 H INR 1.18 APTT 35.3 Sodium 135 L Potassium 3.8 BUN 30 H Creatinine 6.96 H Glucose 86 Total Bilirubin 0.4 AST 87 H ALT 67 H Alkaline Phosphatase 188 H Imagings Data: EXAM DESCRIPTION: RAD - Chest Single View - 05/19/2023 11:11 am CLINICAL HISTORY: COUGH Chest pain. COMPARISON: Chest Single View dated 08/06/2022; Chest Single View dated 06/28/2022; Chest Pa And Lat (2 Views) dated 07/01/2018; Chest Pa And Lat (2 Views) dated 06/19/2018 FINDINGS: Portable technique limits examination quality. The lungs are emphysematous. Patchy opacity is present in the right lung base likely related to infiltrate/pneumonia. The heart is mildly enlarged in size. Sternotomy wires present. IMPRESSION: Developing pneumonia suspected right lower lobe. Conclusions/Impression: ESRD on HD TTS -HD TIW Hyponatremia -HD TIW Chronic Hypotension -Midrodrine prn Diastolic CHF, chronic -Low sodium diet -Daily weight Anemia in CKD Macrocytosis -Monitor H&H -Retacrit prn CKD MBD -Start Ergo RLL PNA -Continue Abx Thank you kindly for the consultation
[2023-05-20] MEDS: IPRATROPIUM BROM 0.5MG/2.5ML NEB SCH ×3 (00:52→14:00)
[2023-05-20] MEDS: HEPARIN 5000 UNIT/ML 1 ML VIAL SQ SCH ×2 (01:06→08:28)
[2023-05-20 03:07] LABS: Absolute Lymphocytes (CBC) 0.8 K/uL (0.7-4.9); Hematocrit 33.9 % (39.6-49.0); Lymphocytes % 8.2 % (15.3-44.8); MCV 102.7 fL (80-100); Platelets 208 thou/uL (152-406)
[2023-05-20 04:02] LABS: Magnesium 2.2 mg/dL (1.6-2.4); Phosphorus 3.5 mg/dL (2.5-4.9); Potassium 3.8 mEq/L (3.5-5.1); Uric Acid 4.6 mg/dL (3.5-7.2)
--- NOTE | 2023-05-20 07:58 | P.PN ---
Subjective Date of Service: 05/20/23 Chief Complaint: Dyspnea reports feeling better, mild cough - Physical Exam General: Alert, In no apparent distress, Oriented x3 HEENT: Atraumatic, Normocephalic Neck: Supple, 2+ carotid pulse no bruit Respiratory: Normal air movement, Crackles/rales (RLL) Cardiovascular: No edema, Normal pulses Capillary refill: <2 Seconds Gastrointestinal: Normal bowel sounds, Soft and benign Musculoskeletal: No clubbing, No swelling Integumentary: No rashes, No breakdown Neurological: Normal speech, Normal strength at 5/5 x4 extr Review of Systems per HPI Physical Examination - Vital Signs Temperature: 97.4 F Blood Pressure: 112/63 Pulse: 63 Respirations: 18 Pulse Ox (%): 95 - Studies Laboratory Data (last 24 hrs) 05/19/23 05/19/23 05/19/23 10:30 10:30 10:30 WBC 11.10 H Hgb 11.1 L Hct 34.6 L Plt Count 219 PT 12.9 H INR 1.18 APTT 35.3 Sodium 135 L Potassium 3.8 BUN 30 H Creatinine 6.96 H Glucose 86 Total Bilirubin 0.4 AST 87 H ALT 67 H Alkaline Phosphatase 188 H Microbiology Data (last 24 hrs): 05/19/23 10:30 Nasopharnyx Influenza Type A Antigen Screen - Final 05/19/23 10:30 Nasopharnyx Influenza Type B Antigen Screen - Final Assessment And Plan - Plan Assessment plan Acute hypoxic respiratory failure secondary to pneumonia IV antibiotics, O2 2 L keep sats greater than 92% EKG4 Rate is 64 beats/min. Rhythm is regular. QRS [place] is Normal. QRS interval is prolonged at 144 msec. QT interval is normal. No Q waves. T waves are Normal. No ST changes noted. Clinical impression: LBBB. Chest x-ray IMPRESSION: Developing pneumonia suspected right lower lobe. aboratory evaluation mild leukocytosis 11.10, 9.80 microcytic anemia likely from chronic kidney disease 1 hemoglobin 1.1 34.6, trend H&H Elevated BNP Likely secondary from end-stage renal disease elevated BNP 4961, SARS negative End-stage renal disease on hemodialysis Nephrology consult, HD acute chronic kidney disease, elevated BUN 30 creatinine 6.96, hyperlipidemia hypertension History myocardial infarction resume appropriate home meds Full code Renal diet DVT heparin, Discharge Plan: Home - Code Status/Comfort Care Code Status: Full Code Physician Review: Patient Assessed, Agree with Above Assessment and Plan Critical Care: No Time Spent Managing PTS Care (In Minutes): 35
--- NOTE | 2023-05-20 08:05 | P.PN ---
Subjective Date of Service: 05/20/23 Chief Complaint: Dyspnea - Physical Exam General: Alert, In no apparent distress, Oriented x3 HEENT: Atraumatic, Normocephalic Neck: Supple, 2+ carotid pulse no bruit Respiratory: Normal air movement, Crackles/rales (RLL) Cardiovascular: No edema, Normal pulses Capillary refill: <2 Seconds Gastrointestinal: Normal bowel sounds, Soft and benign Musculoskeletal: No clubbing, No swelling Integumentary: No rashes, No breakdown Neurological: Normal speech, Normal strength at 5/5 x4 extr Physical Examination - Vital Signs Temperature: 97.4 F Blood Pressure: 112/63 Pulse: 63 Respirations: 18 Pulse Ox (%): 95 - Studies Laboratory Data (last 24 hrs) 05/19/23 05/19/23 05/19/23 10:30 10:30 10:30 WBC 11.10 H Hgb 11.1 L Hct 34.6 L Plt Count 219 PT 12.9 H INR 1.18 APTT 35.3 Sodium 135 L Potassium 3.8 BUN 30 H Creatinine 6.96 H Glucose 86 Total Bilirubin 0.4 AST 87 H ALT 67 H Alkaline Phosphatase 188 H Microbiology Data (last 24 hrs): 05/19/23 10:30 Nasopharnyx Influenza Type A Antigen Screen - Final 05/19/23 10:30 Nasopharnyx Influenza Type B Antigen Screen - Final Assessment And Plan - Plan Assessment plan Acute hypoxic respiratory failure secondary to pneumonia IV antibiotics, nebs, tessalon O2 2 L keep sats greater than 92% EKG4 Rate is 64 beats/min. Rhythm is regular. QRS [place] is Normal. QRS interval is prolonged at 144 msec. QT interval is normal. No Q waves. T waves are Normal. No ST changes noted. Clinical impression: LBBB. Chest x-ray IMPRESSION: Developing pneumonia suspected right lower lobe. aboratory evaluation mild leukocytosis 11.10,9.80 microcytic anemia likely from chronic kidney disease Macrocytosis 1 hemoglobin 1.1 34.6, trend H&H Elevated BNP Likely secondary from end-stage renal disease elevated BNP [id number], SARS negative End-stage renal disease on hemodialysis Nephrology consult, HD acute chronic kidney disease, elevated BUN 30 creatinine 6.96, hyperlipidemia hypertension History myocardial infarction resume appropriate home meds Full code Renal diet DVT heparin, Discharge Plan: Home - Code Status/Comfort Care Code Status: Full Code Physician Review: Patient Assessed, Agree with Above Assessment and Plan Critical Care: No Time Spent Managing PTS Care (In Minutes): 35
[2023-05-20] MEDS ORDERED: DOCUSATE NA 100 MG CAP PO SCH (09:00)
[2023-05-20] MEDS ORDERED: CEFTRIAXONE 1,000 MG in NA CHLORIDE 0.9% 50 ML IVPB SCH (09:00)
[2023-05-20] MEDS ORDERED: AZITHROMYCIN IV 500 MG in NA CHLORIDE 0.9% 250 ML IVPB SCH (09:00)
[2023-05-20] MEDS ORDERED: DRISDOL (VITAMIN D=ERGOCALCIFEROL) 50000 UNIT CAP PO SCH (09:00)
[2023-05-20] MEDS ORDERED: COENZYME Q10- 200 MG CAP PO SCH (09:00)
[2023-05-20] MEDS ORDERED: AMIODARONE HCL 200 MG TAB PO SCH ×2 (10:00→21:00)
[2023-05-20] MEDS: MIDODRINE HCL 5 MG TABLET PO SCH ×2 (11:54→15:07)
[2023-05-20 13:03] VITALS: BMI 25.5
--- NOTE | 2023-05-20 13:07 | EKG ---
Test Date: 2023-05-19 Test Time: 10:29:08 Air Quality Manager: KRISTIN MEASUREMENT RESULTS: Intervals: Rate: 64 WI: QRSD: 144 QT: 470 QTc: 484 [place]: P: WI: QRS: 74 T: 248 INTERPRETIVE STATEMENTS: Sinus rhythm Left bundle branch block Abnormal ECG Electronically Signed On 05-20-23 13:04:29 [employer]ESS[employer] by Mario Briseno
[2023-05-20 14:08] VITALS: O2SAT 98
[2023-05-20 17:31] VITALS: BP 112/63; TEMP 97.4
[2023-05-20 17:37] LABS: Hepatitis B Surface Ab - Quant 3.44 mIU/mL (<8.0); Hepatitis B surface AG Interp. Nonreactive (Nonreactive)
--- NOTE | 2023-05-20 21:07 | P.PN ---
Date of Service: 05/20/23 Vital Signs Temp Pulse Resp BP Pulse Ox 97.4 F 63 18 112/63 95 05/20/23 17:28 05/20/23 17:28 05/20/23 17:28 05/20/23 17:28 05/20/23 17:28 Microbiology Results 05/19/23 10:52 Blood - Blood Aerobic Blood Culture - Preliminary No growth in 24 hours. 05/19/23 10:52 Blood - Blood Anaerobic Blood Culture - Preliminary No growth in 24 hours. 05/19/23 10:30 Blood - Blood Aerobic Blood Culture - Preliminary No growth in 24 hours. 05/19/23 10:30 Blood - Blood Anaerobic Blood Culture - Preliminary No growth in 24 hours. 05/19/23 10:30 Nasopharnyx Influenza Type A Antigen Screen - Final 05/19/23 10:30 Nasopharnyx Influenza Type B Antigen Screen - Final Assessment/ Plan: Nephrology No dyspnea No chest pain Feeling better No acute events overnight Vitals, medications, blood work and imaging reviewed in the chart. General: In no apparent distress, Oriented x3, Cooperative HEENT: Atraumatic Neck: Supple Respiratory: Normal air movement Cardiovascular: No edema Gastrointestinal: Soft and benign, Non-distended Musculoskeletal: No clubbing, No contractures Integumentary: No rashes, No cyanosis Neurological: Normal speech Laboratory Data (last 24 hrs) 05/19/23 05/19/23 05/19/23 10:30 10:30 10:30 WBC 11.10 H Hgb 11.1 L Hct 34.6 L Plt Count 219 PT 12.9 H INR 1.18 APTT 35.3 Sodium 135 L Potassium 3.8 BUN 30 H Creatinine 6.96 H Glucose 86 Total Bilirubin 0.4 AST 87 H ALT 67 H Alkaline Phosphatase 188 H Imagings Data: EXAM DESCRIPTION: RAD - Chest Single View - 05/19/2023 11:11 am CLINICAL HISTORY: COUGH Chest pain. COMPARISON: Chest Single View dated 08/06/2022; Chest Single View dated 06/28/2022; Chest Pa And Lat (2 Views) dated 07/01/2018; Chest Pa And Lat (2 Views) dated 06/19/2018 FINDINGS: Portable technique limits examination quality. The lungs are emphysematous. Patchy opacity is present in the right lung base likely related to infiltrate/pneumonia. The heart is mildly enlarged in size. Sternotomy wires present. IMPRESSION: Developing pneumonia suspected right lower lobe. Conclusions/Impression: ESRD on HD TTS -HD TIW Hyponatremia -HD TIW Chronic Hypotension -Midrodrine prn Diastolic CHF, chronic -Low sodium diet -Daily weight Anemia in CKD Macrocytosis -Monitor H&H -Retacrit prn CKD MBD -Continue Ergo RLL PNA -Continue Abx Case reviewed with hospitalist team
--- NOTE | 2023-05-21 16:16 | P.DS ---
Admission Date: 05/19/23 Discharge Date: 05/21/23 Disposition: ROUTINE DISCHARGE Discharge Condition: GOOD Reason for Admission: Dyspnea Brief History of Present Illness: 82-year-old male with a past medical history of end-stage renal disease on hemodialysis, hyperlipidemia, hypertension, myocardial infarction, presents to the emergency room with cough, mild shortness of breath, worse with exertion. Was transferred from dialysis center. Reports lightheadedness after dialysis. He reports no loss of consciousness, no fall. Reports cough over the last 24 hours, reports associated clear nasal drainage, rhinorrhea, no reported s hortness of breath, chest pain, edema. EKG4 Rate is 64 beats/min. Rhythm is regular. QRS [place] is Normal. QRS interval is prolonged at 144 msec. QT interval is normal. No Q waves. T waves are Normal. No ST changes noted. Clinical impression: LBBB. Plan to admit for pneumonia, dyspnea. Chest x-ray IMPRESSION: Developing pneumonia suspected right lower lobe. Laboratory evaluation mild leukocytosis 11.10, microcytic anemia 11.1 34.6, acute chronic kidney disease, elevated BUN 30 creatinine 6.96, elevated BNP 4961, SARS negative Physical Exam General: Alert, In no apparent distress, Oriented x3 HEENT: Atraumatic, Normocephalic Neck: Supple, 2+ carotid pulse no bruit Respiratory: Normal air movement, Crackles/rales (RLL) Cardiovascular: No edema, Normal pulses Capillary refill: <2 Seconds Gastrointestinal: Normal bowel sounds, Soft and benign Musculoskeletal: No clubbing, No swelling Integumentary: No rashes, No breakdown Neurological: Normal speech, Normal strength at 5/5 x4 extr Hospital Course: - Plan Assessment plan Acute hypoxic respiratory failure secondary to pneumonia IV antibiotics, O2 2 L keep sats greater than 92% EKG4 Rate is 64 beats/min. Rhythm is regular. QRS [place] is Normal. QRS interval is prolonged at 144 msec. QT interval is normal. No Q waves. T waves are Normal. No ST changes noted. Clinical impression: LBBB. Chest x-ray IMPRESSION: Developing pneumonia suspected right lower lobe. aboratory evaluation mild leukocytosis 11.10, 9.80 microcytic anemia likely from chronic kidney disease Elevated BNP Likely secondary from end-stage renal disease elevated BNP 4961, SARS negative End-stage renal disease on hemodialysis Nephrology consult, HD acute chronic kidney disease, elevated BUN 30 creatinine 6.96, Vital Signs/Physical Exam: Temp Pulse Resp BP Pulse Ox 97.4 F 63 18 112/63 95 05/20/23 17:28 05/20/23 17:28 05/20/23 17:28 05/20/23 17:28 05/20/23 17:28 Laboratory Data at Discharge: WBC 9.80 thou/uL (4.3-10.9) 05/20/23 01:49 Hgb 11.2 g/dL (13.6-17.9) L 05/20/23 01:49 Hct 33.9 % (39.6-49.0) L 05/20/23 01:49 Plt Count 208 thou/uL (152-406) 05/20/23 01:49 PT 12.9 SECONDS (9.5-12.5) H 05/19/23 10:30 INR 1.18 05/19/23 10:30 APTT 35.3 SECONDS (24.3-36.9) 05/19/23 10:30 Sodium 137 mEq/L (136-145) 05/20/23 01:49 Potassium 3.8 mEq/L (3.5-5.1) 05/20/23 01:49 BUN 45 mg/dL (7-18) H 05/20/23 01:49 Creatinine 8.81 mg/dL (0.70-1.30) H 05/20/23 01:49 Glucose 92 mg/dL (74-106) 05/20/23 01:49 Uric Acid 4.6 mg/dL (3.5-7.2) 05/20/23 01:49 Phosphorus 3.5 mg/dL (2.5-4.9) 05/20/23 01:49 Magnesium 2.2 mg/dL (1.6-2.4) 05/20/23 01:49 Total Bilirubin 0.4 mg/dL (0.2-1.0) 05/19/23 10:30 AST 87 U/L (15-37) H 05/19/23 10:30 ALT 67 U/L (16-61) H 05/19/23 10:30 Alkaline Phosphatase 188 U/L (45-117) H 05/19/23 10:30 Home Medications: Acetaminophen [Tylenol] 640 mg PO Q6HP PRN 08/06/22 Amiodarone HCl [Cordarone*] 200 mg PO BID 08/06/22 Aspirin Chewable [Aspirin Chewable*] 81 mg PO DAILY 08/06/22 Atorvastatin Calcium 40 mg PO BEDTIME 08/06/22 Clopidogrel Bisulfate [Plavix*] 75 mg PO DAILY 08/06/22 Furosemide [Lasix*] 40 mg PO DAILY 08/06/22 Midodrine HCl 10 mg PO TID 08/06/22 Albuterol Neb [Proventil 0.083% Neb Soln] 2.5 mg NEB [id number] PRN #60 amp 05/20/23 Cefdinir [Cefdinir*] 300 mg PO BID #14 cap 05/20/23 Docusate [Colace Cap*] 100 mg PO BID #60 cap 05/20/23 Doxycycline Hyclate [Vibramycin] 100 mg PO BID #10 tab 05/20/23 Ipratropium Neb [Atrovent*] 0.5 mg NEB [id number] #60 amp 05/20/23 predniSONE [Deltasone] 20 mg PO DAILY #5 tab 05/20/23 New Medications: Ipratropium Neb [Atrovent*] 0.5 mg NEB [id number] #60 amp Cefdinir [Cefdinir*] 300 mg PO BID #14 cap Docusate [Colace Cap*] 100 mg PO BID #60 cap predniSONE [Deltasone] 20 mg PO DAILY #5 tab Albuterol Neb [Proventil 0.083% Neb Soln] 2.5 mg NEB [id number] PRN #60 amp PRN Reason: Shortness Of Breath Doxycycline Hyclate [Vibramycin] 100 mg PO BID #10 tab Physician Discharge Instructions: -DC IV and DC home -Follow-up with PCP in 1 to 2 weeks -Follow-up with pulmonary and cardiology in 1 to 2 weeks -Please call Dr. Arambula at [phone] if any questions regarding hospital stay -Please call nursing station at [phone] if any nursing or medication questions -Return to the emergency room if symptoms worsen Diet: Renal Activity: Fall precautions Followup: Luis Antonio Walsh MD [ACTIVE - CAN ADMIT] - 1-2 Weeks Chepe Marin DO [Primary Care Provider] - 1-2 Weeks Mario Briseno MD [ACTIVE - CAN ADMIT] - 1-2 Weeks
== END 2023-05-20 16:53 | disposition home or self-care (01) ==
LOC: ER 10:18 → ERHOLD 12:17 → INTOOBSV 12:17 → 2ND 16:56
PROVIDERS: ADMIT Hospitalist; ATTEND Hospitalist
DX: J18.9 Pneumonia, unspecified organism (principal); J96.01 Acute respiratory failure with hypoxia; N18.6 End stage renal disease; E87.1 Hypo-osmolality and hyponatremia; I50.32 Chronic diastolic (congestive) heart failure; I13.2 Hypertensive heart and chronic kidney disease with heart failure and with stage 5 chronic kidney disease, or end stage renal disease; E11.22 Type 2 diabetes mellitus with diabetic chronic kidney disease; D63.1 Anemia in chronic kidney disease; D50.9 Iron deficiency anemia, unspecified; I95.89 Other hypotension; I44.7 Left bundle-branch block, unspecified; E78.5 Hyperlipidemia, unspecified; I25.2 Old myocardial infarction; Z60.2 Problems related to living alone; Z95.5 Presence of coronary angioplasty implant and graft; Z95.1 Presence of aortocoronary bypass graft; Z99.2 Dependence on renal dialysis; Z11.52 Encounter for screening for COVID-19; Z79.82 Long term (current) use of aspirin; Z79.02 Long term (current) use of antithrombotics/antiplatelets; Z79.899 Other long term (current) drug therapy; Z87.891 Personal history of nicotine dependence
CPT/HCPCS: 93005; 87040 ×2; 87070; 85025 ×2; 80048; 36415; 83735; 87205; 84100; 85610; 84550; 83605; 85730; 80053; 83880 ×2; 87635; 87340; 86706; 87804 ×2; 71045; 94640; 94760 ×4; 96374; 99285; J1644 ×2; J7644 ×4; J7050; J0696 ×2; G0378 ×4